=== PATIENT | male | born 1970 | race Caucasian/White ===

== ENCOUNTER → 2017-11-23 09:32 | Outpatient (CLI) | payer MEDICARE, OTHER, SELFPAY ==
[2017-11-23 10:34] LABS: Hemoglobin 12.9 g/dl (13.0-16.5); Mean Corp Hgb Conc 33.1 g/gl (32-36); Mean Corpuscular Hgb 30.4 pg (27.0-32.0); Platelet Count 108 K/mm3 (150-450); RBC Distribution Width CV 13.5 % (11.6-14.6); Red Blood Count 4.24 M/mm3 (4.6-6.2)
[2017-11-23 10:37] LABS: Scan Indicated on CBC? Y/N NO
[2017-11-23 11:05] LABS: Albumin, Serum 3.7 g/dL (3.2-5.0); BUN 25 mg/dL (7-18); BUN/Creat Ratio 13.8 RATIO (10-20); Calcium,Total 9.6 mg/dL (8.5-10.1); Chloride 101 mmol/L (98-107); Creatinine, Serum 1.81 mg/dL (0.70-1.30); EST Glomerular Filtration Rate 43 mL/min (>60); Est Glom Filt Rate - Afr Amer 52 mL/min (>60); Glucose 78 mg/dL (74-106); Phosphorus 2.3 mg/dL (2.5-4.9); Potassium 4.5 mmol/L (3.5-5.1); Sodium Level 132 mmol/L (136-145)
[2017-11-25 19:23] LABS: Cholesterol 112 mg/dL (200); High Density Lipoprotein 41 mg/dL; Magnesium 1.9 mg/dL (1.6-2.6); Triglycerides 55 mg/dL; Very Low Density Lipoprotein 11 mg/dL (5-40)
[2017-11-26 16:04] LABS: Tacrolimus (FK506) 10.4 ng/mL (2.0-20.0)
== END ==
PROVIDERS: Family Provider Physician Assistant; PCP Physician Assistant; Visit Provider Internal Medicine Nephrology
DX: Z94.0 Kidney transplant status (principal); D89.9 Disorder involving the immune mechanism, unspecified
CPT/HCPCS: 36415; 80061; 80069; 80197; 83735; 85027

== ENCOUNTER 2017-12-25 14:10 | Inpatient (IN) | payer MEDICARE, BC, SELFPAY ==
[2017-12-25] VITALS (12 sets, daily range): BP systolic 96–131; BP diastolic 47–68; PULSE 52–72; RESP 14–18; TEMP 36.6–36.9; O2SAT 95–100; BMI 23.3; BMI 23.8
--- NOTE | 2017-12-25 14:12 | EKG12_ITS ---
Test Reason : CP Blood Pressure : / mmHG Vent. Rate : 063 BPM Atrial Rate : 063 BPM P-R Int : 126 ms QRS Dur : 092 ms QT Int : 382 ms P-R-T Axes : 048 -46 -07 degrees QTc Int : 390 ms Normal sinus rhythm Left anterior fascicular block Left ventricular hypertrophy with repolarization abnormality Abnormal ECG Confirmed by KAITLIN BURT, LANCE ([id number]), social media editor JENARO ALVARADO ([id number]) on 12/27/2017 2:47:44 PM Referred By: AURE Confirmed By:LANCE MADRIGAL MD
--- NOTE | 2017-12-25 14:26 | ED.VISSUMM ---
- ER Visit Summary Date of Service: 12/25/17 Chief Complaint: Chest pain History of Present Illness: The patient is a 47 M known history of coronary disease with prior PR and quadruple bypass in 2006. Patient is also had renal transplants ?2. Hypertension and prior pulmonary emboli. He states that the last 2 weeks he has had intermittent chest heaviness. Often brought on by exertion. Mild dyspnea. No hemoptysis. It is not pleuritic in nature. Denies any calf pain. He is not recently been ill. He states he had a stress echo done in Dr. Logan's office approximately 4 months ago which was negative For valvular heart disease. Physical Examination: Well-appearing middle-age male. Vital signs are stable afebrile. He does not look septic or toxic. Pulse ox 97% on room air no signs of hypoxia. H EENT exam is unremarkable. Neck nontender no JVD. Lungs clear to auscultation bilaterally. Heart regular rate and rhythm no murmur. Abdomen soft nontender. Chest wall nontender. He is moving all 4 extremities. Calves are nontender without edema or cords. Neurologically is awake and alert without focal motor deficits. Test Results: Chest x-ray no acute process chronic changes. CBC shows a white count 8. H&H 11.9 and 35 which is consistent with his chronic E [place]. Platelet count of 108,000 again chronic. His chemistry panel is unremarkable and his creatinine 1.89 he has chronic renal insufficiency this is along his baseline. Troponin is elevated 0.21 Emergency Department Course and Treatment: Will undergo cardiac workup and will receive p.o. aspirin. Treatment Plan: I spoke with the patient's and he would prefer to stay here with her hospital to have his care versus being transferred to a larger facility. I discussed this and his chronic renal insufficiency with Dr. Moreira he states he is comfortable taking care of the patient will gladly care for him here at [facility]. I spoke to the hospitalist who will be down to admit him. Patient will be started on a nitroglycerin drip. Disposition: Admission Impression: Chest pain with elevated troponin History of PR, CAD with prior quadruple bypass. History of renal transplants ?2 and known renal insufficiency Chronic anemia History of COPD History of right lower extremity peripheral arterial disease This note was generated with [email or web address] software. It may contain incorrect words, spelling, and punctuation that were not noted in review of the chart prior to signing ED Disposition - Plan for ED Patient: Chief Complaint: Chest Pain Referrals: Diana Tate PA [Primary Care Provider] -
--- NOTE | 2017-12-25 14:27 | RAD_ITS ---
STUDY: X-RAY CHEST REASON FOR EXAM: Male, 47 years old. COPD. Prior CABG. TECHNIQUE: Single AP portable view of the chest. COMPARISON: Comparison is made with prior study dated May 23, 2013. FINDINGS: EKG electrodes are seen. Hyperinflation. Stable blunting of the left costophrenic angle. Mild degree of increased retrocardiac markings suggestive of possible early infiltrate. Follow-up is recommended. Sternal cerclage wires and vascular clips are present from a prior sternotomy and coronary artery bypass graft procedure (CABG). Normal mediastinum and vimal. Normal visualized pulmonary arteries. There is atherosclerotic calcification of the aortic arch with tortuosity. Normal visualized thoracic spine. Normal visualized ribs, clavicles, and shoulders. There is no demonstrated abnormality of the visualized soft tissue structures of the upper abdomen. RAD/Chest 1 View (Portable) IMPRESSION: Increased markings in the retrocardiac region. Early infiltrate should BE ruled out. Stable blunting of the left costophrenic angle. Electronically Signed: Gabe Nichols MD at 14:47 EDT Tel [phone], Service support ,
[2017-12-25] MEDS: Aspirin 81 MG TAB.CHEW 324 MG PO (14:46)
[2017-12-25 14:53] LABS: Absolute Lymphocyte Count 0.52 X10^3/ul (0.83-4.51); Absolute Neutrophil Count 6.9 X10^3/uL (2.0-7.7); Basophil# 0.01 X10^3/uL; Basophil% 0.1 % (0-1); Differential Indicated SCAN CRITERIA MET; Eosinophil# 0.02 X10^3/uL; Eosinophils% 0.3 % (0-5); Hematocrit 35.6 % (40-54); Hemoglobin 11.9 g/dl (13.0-16.5); Lymphocyte # 0.52 X10^3/ul (4.0); Lymphocyte % 6.5 % (19-41); Mean Corp Hgb Conc 33.4 g/gl (32-36); Mean Corpuscular Hgb 30.9 pg (27.0-32.0); Mean Corpuscular Volume 92.5 fL (80-94); Mean Platelet Vol. 10.4 fl (6.2-12.0); Monocyte# 0.46 X10^3/uL; Monocyte% 5.8 % (0-10); Neutrophil # 6.93 X10^3/uL (2.7-7.7); Neutrophil % 86.9 % (47-70); POSITIVE COUNT NO; POSITIVE DIFFERENTIAL YES; POSITIVE MORPHOLOGY NO; Platelet Count 108 K/mm3 (150-450); RBC Distribution Width CV 13.4 % (11.6-14.6); RBC Distribution Width SD 44.6 fl (35.1-43.9); Red Blood Count 3.85 M/mm3 (4.6-6.2)
[2017-12-25 15:05] LABS: Anion Gap 6 (5-15); BUN 26 mg/dL (7-18); BUN/Creat Ratio 13.8 RATIO (10-20); Calcium,Total 9.7 mg/dL (8.5-10.1); Chloride 104 mmol/L (98-107); Creatinine, Serum 1.89 mg/dL (0.70-1.30); EST Glomerular Filtration Rate 41 mL/min (>60); Est Glom Filt Rate - Afr Amer 49 mL/min (>60); Estimated Creatinine Clearance 41.58 ml/min; Glucose 98 mg/dL (74-106); Potassium 4.9 mmol/L (3.5-5.1); Sodium Level 136 mmol/L (136-145)
--- NOTE | 2017-12-25 15:50 | PCM.HP.STD ---
Problem List (1) Hypertension Status: Chronic (2) Coronary artery disease Status: Chronic (3) History of renal transplant Status: Chronic History of Present Illness Date of Admission: 12/25/17 The patient is a 47 year old M with past medical history of coronary artery disease status post CABG, essential hypertension and status post renal transplant with stage III chronic kidney disease and anemia of chronic disease who presented to the emergency room due to intermittent chest heaviness for the past 2 weeks,this is worse with exertion and associated with mild dyspnea. He reports no cough, fever chills hemoptysis rapid heartbeat or palpitations. he follows with Dr. Logan as his primary career technical education teacher and his net software developer is in [place]. In the Emergency room his troponin was elevated at 0.21, creatinine is 1.8 which is at his baseline, his hemoglobin is 11.9, chest x-ray is non-acute his 12-lead EKG does not reveal new ST deviations. Dr Moreira of cardiology was consulted on this patient from the emergency room and he will see him for possible heart catheterization. Past Medical History Past Medical History (Chronic Problems): Chronic Problems Hypertension (Chronic) Coronary artery disease (Chronic) History of renal transplant (Chronic) Allergies acetaminophen [From Darvocet-N] Allergy (Verified 05/12/16 08:44) Hives propoxyphene napsylate [From Darvocet-N] Allergy (Verified 05/12/16 08:44) Hives venom-honey bee [bee venom (honey bee)] Allergy (Verified 05/12/16 08:44) Hives Home Medications: Ambulatory Orders Medication Instructions Recorded Aspirin [Aspirin, Baby] 81 mg PO DAILY@0800 02/21/14 Doxazosin Mesylate [Cardura] 8 mg PO DAILY 02/21/14 Metoprolol Tartrate [Lopressor 75 mg PO BID 02/21/14 (beta hong)] Mycophenolate Mofetil [Cellcept] 250 mg PO BID 02/21/14 Omeprazole [Prilosec] 20 mg PO DAILY 02/21/14 Sulfamethoxazole/Trimethoprim 1 tablet PO DAILY 02/21/14 [Bactrim 400-80 mg Tablet] Tacrolimus Anhydrous [Prograf] 0.5 mg PO BID 02/21/14 predniSONE tablet 7.5 mg PO DAILY 02/21/14 Magnesium Oxide [Mgo] 400 mg PO BID 12/25/17 Umeclidinium Brm/Vilanterol Tr 1 puff INHALATION QHS 12/25/17 [Anoro Ellipta 62.5-25 Mcg INH] Surgical History: coronary bypass surgery, - - Renal transplantation, bladder surgery, pericardial window secondary to renal failure Psychiatric History: No pertinent psych hx Smoking Status: Former smoker Review of Systems Constitutional: Reports: Anorexia Comment: All Systems were reviewed with pertinent positives mentioned in the HPI above. VTE Information - Inpt Only VTE Present on Admission: No VTE Mechan Device Prophylaxis: SCD's VTE Pharm Prophylaxis ordered?: No Reason prophylaxis not ordered:: Adverse Reaction to Drug - Physical Exam General: Alert, Oriented x3 HEENT: Atraumatic Neck: Supple, No JVD Lungs: Clear to auscultation Extremities: No clubbing Neurological: Cranial nerves II-XII grossly intact Vital Signs Temp Pulse Resp BP Pulse Ox 98.2 F 72 16 98/54 L 97 12/25/17 14:11 12/25/17 15:43 12/25/17 15:43 12/25/17 15:43 12/25/17 15:43 Oxygen Flow Rate (L/min) 2 Oxygen Delivery Method Nasal Cannula Weight: 63.503 kg Body Mass Index (BMI) 23.3 Laboratory Tests Past 24 Hrs 12/25/17 12/25/17 14:36 14:36 WBC 8.0 RBC 3.85 L Hgb 11.9 L Hct 35.6 L MCV 92.5 MCH 30.9 MCHC 33.4 RDW 13.4 RDW Differential 44.6 H Plt Count 108 L MPV 10.4 Immature Gran % (Auto) 0.400 Neut % (Auto) 86.9 H Lymph % (Auto) 6.5 L [place] % (Auto) 5.8 Eos % (Auto) 0.3 Baso % (Auto) 0.1 Absolute Neuts (auto) 6.9 Absolute Lymphs (auto) 0.52 L Total Counted Not Reportable Differential Comment COMMENT Sodium 136 Potassium 4.9 Chloride 104 Carbon Dioxide 26.0 Anion Gap 6 BUN 26 H Creatinine 1.89 H Estim Creat Clear Calc 41.58 Est GFR (MDRD) Af Amer 49 L Est GFR (MDRD) Non-Af 41 L BUN/Creatinine Ratio 13.8 Glucose 98 Calcium 9.7 Troponin I 0.21 H Assessment/Plan 1. Chest pain; given his history of significant coronary artery disease, this most likely represents unstable angina, he has been placed on nitro drip and we will continue serial cardiac enzymes , Dr. Moreira of cardiology have been consulted for further ischemic workup. 2. Status post renal transplant ;we will continue his antirejection medications as they are without change. 3. stage 3 chronic kidney disease; the patient wants to see a net software developer should heart catheterization be recommended. We will avoid potential nephrotoxic agents as possible. 4. Essential hypertension; this is controlled with current antihypertensive agents. 5. Anemia of chronic disease; hemoglobin is stable at this time. 6. Thrombocytopenia; we will repeat CBC in a.m. 7. DVT Prophylaxis with SCDs. Code Visit OBSV E&M: 00139 Initial observation care L3
--- NOTE | 2017-12-25 16:04 | HP.PCM_ITS ---
Problem List (1) Hypertension Status: Chronic (2) Coronary artery disease Status: Chronic (3) History of renal transplant Status: Chronic History of Present Illness Date of Admission: 12/25/17 The patient is a 47 year old M with past medical history of coronary artery disease status post CABG, essential hypertension and status post renal transplant with stage III chronic kidney disease and anemia of chronic disease who presented to the emergency room due to intermittent chest heaviness for the past 2 weeks,this is worse with exertion and associated with mild dyspnea. He reports no cough, fever chills hemoptysis rapid heartbeat or palpitations. he follows with Dr. 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 In the Emergency room his troponin was elevated at 0.21, creatinine is 1.8 which is at his baseline, his hemoglobin is 11.9, chest x-ray is non-acute his 12-lead EKG does not reveal new ST deviations. Dr Moreira of cardiology was consulted on this patient from the emergency room and he will see him for possible heart catheterization. Past Medical History Past Medical History (Chronic Problems): Chronic Problems Hypertension (Chronic) Coronary artery disease (Chronic) History of renal transplant (Chronic) Allergies acetaminophen [From Darvocet-N] Allergy (Verified 05/12/16 08:44) Hives propoxyphene napsylate [From Darvocet-N] Allergy (Verified 05/12/16 08:44) Hives venom-honey bee [bee venom (honey bee)] Allergy (Verified 05/12/16 08:44) Hives Home Medications: Ambulatory Orders Medication Instructions Recorded Aspirin [Aspirin, Baby] 81 mg PO DAILY@0800 02/21/14 Doxazosin Mesylate [Cardura] 8 mg PO DAILY 02/21/14 Metoprolol Tartrate [Lopressor 75 mg PO BID 02/21/14 (beta hong)] Mycophenolate Mofetil [Cellcept] 250 mg PO BID 02/21/14 Omeprazole [Prilosec] 20 mg PO DAILY 02/21/14 Sulfamethoxazole/Trimethoprim 1 tablet PO DAILY 02/21/14 [Bactrim 400-80 mg Tablet] Tacrolimus Anhydrous [Prograf] 0.5 mg PO BID 02/21/14 predniSONE tablet 7.5 mg PO DAILY 02/21/14 Magnesium Oxide [Mgo] 400 mg PO BID 12/25/17 Umeclidinium Brm/Vilanterol Tr 1 puff INHALATION QHS 12/25/17 [Anoro Ellipta 62.5-25 Mcg INH] Surgical History: coronary bypass surgery, - - Renal transplantation, bladder surgery, pericardial window secondary to renal failure Psychiatric History: No pertinent psych hx Smoking Status: Former smoker Review of Systems Constitutional: Reports: Anorexia Comment: All Systems were reviewed with pertinent positives mentioned in the HPI above. VTE Information - Inpt Only VTE Present on Admission: No VTE Mechan Device Prophylaxis: SCD's VTE Pharm Prophylaxis ordered?: No Reason prophylaxis not ordered:: Adverse Reaction to Drug - Physical Exam General: Alert, Oriented x3 HEENT: Atraumatic Neck: Supple, No JVD Lungs: Clear to auscultation Extremities: No clubbing Neurological: Cranial nerves II-XII grossly intact Vital Signs Temp Pulse Resp BP Pulse Ox 98.2 F 72 16 98/54 L 97 12/25/17 14:11 12/25/17 15:43 12/25/17 15:43 12/25/17 15:43 12/25/17 15:43 Oxygen Flow Rate (L/min) 2 Oxygen Delivery Method Nasal Cannula Weight: 63.503 kg Body Mass Index (BMI) 23.3 Laboratory Tests Past 24 Hrs 12/25/17 12/25/17 14:36 14:36 WBC 8.0 RBC 3.85 L Hgb 11.9 L Hct 35.6 L MCV 92.5 MCH 30.9 MCHC 33.4 RDW 13.4 RDW Differential 44.6 H Plt Count 108 L MPV 10.4 Immature Gran % (Auto) 0.400 Neut % (Auto) 86.9 H Lymph % (Auto) 6.5 L [place] % (Auto) 5.8 Eos % (Auto) 0.3 Baso % (Auto) 0.1 Absolute Neuts (auto) 6.9 Absolute Lymphs (auto) 0.52 L Total Counted Not Reportable Differential Comment COMMENT Sodium 136 Potassium 4.9 Chloride 104 Carbon Dioxide 26.0 Anion Gap 6 BUN 26 H Creatinine 1.89 H Estim Creat Clear Calc 41.58 Est GFR (MDRD) Af Amer 49 L Est GFR (MDRD) Non-Af 41 L BUN/Creatinine Ratio 13.8 Glucose 98 Calcium 9.7 Troponin I 0.21 H Assessment/Plan 1. Chest pain; given his history of significant coronary artery disease, this most likely represents unstable angina, he has been placed on nitro drip and we will continue serial cardiac enzymes , Dr. Moreira of cardiology have been consulted for further ischemic workup. 2. Status post renal transplant ;we will continue his antirejection medications as they are without change. 3. stage 3 chronic kidney disease; the patient wants to see a box office clerk should heart catheterization be recommended. We will avoid potential nephrotoxic agents as possible. 4. Essential hypertension; this is controlled with current antihypertensive agents. 5. Anemia of chronic disease; hemoglobin is stable at this time. 6. Thrombocytopenia; we will repeat CBC in a.m. 7. DVT Prophylaxis with SCDs. Code Visit OBSV E&M: 08900 Initial observation care L3
[2017-12-25 16:33] LABS: D-Dimer Quantitative (DVT/PE) < 0.27 FEU/ug/m (0.27-0.49)
[2017-12-25] MEDS: ALPRAZolam 0.25 MG Tablet PO (18:14)
[2017-12-25] MEDS: 0.9% Normal Saline 1,000 ML 50 ML IV (18:41)
--- NOTE | 2017-12-25 20:08 | EKG12_ITS ---
Test Reason : CP Blood Pressure : / mmHG Vent. Rate : 068 BPM Atrial Rate : 068 BPM P-R Int : 126 ms QRS Dur : 092 ms QT Int : 392 ms P-R-T Axes : 052 -49 -06 degrees QTc Int : 416 ms Normal sinus rhythm Left anterior fascicular block Nonspecific ST abnormality Abnormal ECG When compared with ECG of 25-DEC-2017 14:14, MANUAL COMPARISON REQUIRED, DATA IS UNCONFIRMED Confirmed by KAITLIN BURT, LANCE ([id number]), supervising editor trailer JENARO ALVARADO ([id number]) on 12/27/2017 3:03:21 PM Referred By: SHAUN Confirmed By:LANCE MADRIGAL MD
[2017-12-25] MEDS: Morphine 2 MG/ML Syringe 1 MG IV ×2 (21:15→22:48)
[2017-12-25] MEDS: Magnesium Oxide 400 MG Tablet PO (22:26)
[2017-12-25] MEDS: Mycophenolate Mofetil 250 MG Capsule PO (22:26)
[2017-12-26] VITALS (12 sets, daily range): BP systolic 96–139; BP diastolic 37–58; PULSE 47–65; RESP 14–16; TEMP 35.8–36.5; O2SAT 96–99
[2017-12-26 05:11] LABS: Hematocrit 36.8 % (40-54); Hemoglobin 11.9 g/dl (13.0-16.5); Mean Corp Hgb Conc 32.3 g/gl (32-36); Mean Corpuscular Hgb 30.2 pg (27.0-32.0); Mean Corpuscular Volume 93.4 fL (80-94); Mean Platelet Vol. 10.2 fl (6.2-12.0); Platelet Count 101 K/mm3 (150-450); RBC Distribution Width CV 13.7 % (11.6-14.6); RBC Distribution Width SD 47.1 fl (35.1-43.9); Red Blood Count 3.94 M/mm3 (4.6-6.2); White Blood Count 5.8 K/mm3 (4.4-11.0)
[2017-12-26 05:12] LABS: Scan Indicated on CBC? Y/N NO
[2017-12-26] MEDS: Morphine 2 MG/ML Syringe 1 MG IV ×2 (05:19→10:41)
[2017-12-26 05:33] LABS: Anion Gap 6 (5-15); BUN 24 mg/dL (7-18); BUN/Creat Ratio 13.4 RATIO (10-20); Calcium,Total 9.1 mg/dL (8.5-10.1); Chloride 106 mmol/L (98-107); Cholesterol 85 mg/dL (200); Creatinine, Serum 1.79 mg/dL (0.70-1.30); EST Glomerular Filtration Rate 43 mL/min (>60); Est Glom Filt Rate - Afr Amer 52 mL/min (>60); Glucose 91 mg/dL (74-106); High Density Lipoprotein 42 mg/dL; Potassium 4.9 mmol/L (3.5-5.1); Sodium Level 137 mmol/L (136-145); Triglycerides 51 mg/dL; Very Low Density Lipoprotein 10 mg/dL (5-40)
[2017-12-26] MEDS: Ipratropium/Albuterol Sulfate 3 ML AMPUL.NEB INHALATION (07:32)
--- NOTE | 2017-12-26 08:19 | ECHOCS_ITS ---
Reason For Study: CAD Procedure This was a 2D Doppler, Color Flow transthoracic echocardiogram. Exam performed portable in patient room. Left Ventricle Normal size and thickness. The estimated ejection fraction is 60 %. Normal diastology for age. No regional wall motion abnormalities noted. Right Ventricle Normal size and thickness. Normal systolic function. Atria The left atrium is moderately enlarged. Normal right atrium. Normal atrial septum. Mitral Valve The mitral valve is structurally normal. No prolapse or stenosis seen. Mild (1+) mitral valve insufficiency. Tricuspid Valve Normal tricuspid valve. Mild (1+) tricuspid valve insufficiency. Right ventricular systolic pressure estimated to be 41 mmHg. Mild pulmonary hypertension. Aortic Valve Trisinus/trileaflet aortic valve. Mild focal aortic valve thickening. There is no aortic stenosis. Mild (1+) aortic valve insufficiency. Pulmonic Valve Normal pulmonic valve. Mild (1+) pulmonic valve insufficiency. Great Vessels Normal aortic root. Normal arch. Normal inferior vena cava. Inferior vena cava collapse with sniff. Pericardium/Pleural No pericardial effusion. MMode/2D Measurements & Calculations LVIDd: 5.4 cm IVSd: 1.1 cm Ao root diam: 3.1 cm LVIDs: 3.9 cm LVPWd: 1.1 cm LA dimension: 4.3 cm RVDd: 3.6 cm FS: 27.8 % LAV(MOD-bp): 77.7 ml LA A4 area: 25.4 cm2 RA A4 area: 14.5 cm2 LAV(MOD-bp) Indexed: 45.5 ml/m2 LAV(MOD-sp2): 67.1 ml LAV(MOD-sp4): 85.8 ml Doppler Measurements & Calculations MV E max giovanni: 138.1 cm/sec MV V2 max: 154.1 cm/sec Ao V2 max: 198.0 cm/sec MV A max giovanni: 96.6 cm/sec MV max P.5 mmHg Ao max P.7 mmHg MV E/A: 1.4 MV V2 mean: 62.3 cm/sec MV mean P.2 mmHg MV V2 VTI: 48.5 cm AI max giovanni: 492.2 cm/sec LV V1 max: 121.5 cm/sec PA V2 max: 113.2 cm/sec AI max P.0 mmHg LV V1 max P.9 mmHg AI dec slope: 202.9 cm/sec2 AI P1/2t: 710.3 msec PI end-d giovanni: 121.1 cm/sec TR max giovanni: 300.5 cm/sec TR max P.1 mmHg Interpretation Summary The estimated ejection fraction is 60 %. Normal diastology for age. The left atrium is moderately enlarged. Mild (1+) mitral valve insufficiency. Mild (1+) tricuspid valve insufficiency. Right ventricular systolic pressure estimated to be 41 mmHg. Mild pulmonary hypertension. Mild (1+) aortic valve insufficiency. There is no comparison study available. Ordering Physician: Abraham Moreira Referring Physician: John Khan Performed By: Morena Mae, VERONIKA, RVT
[2017-12-26] MEDS: Aspirin E.C. 81 MG Tablet PO (09:31)
[2017-12-26] MEDS: Pantoprazole Sodium 20 MG Tablet PO (09:31)
[2017-12-26] MEDS: predniSONE 5 MG Tablet 7.5 MG PO (09:31)
[2017-12-26] MEDS: Smz/Tmp Ds Tablet 0.5 TABLET PO (09:31)
[2017-12-26] MEDS: Magnesium Oxide 400 MG Tablet PO ×2 (09:32→22:10)
[2017-12-26] MEDS: Mycophenolate Mofetil 250 MG Capsule PO ×2 (09:33→22:10)
--- NOTE | 2017-12-26 10:17 | PCM.CONS.R ---
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 last renal txp was DULR 8 years ago, CKD stage 3. Patient follows with Dr. Khan at [place]. Patient is on cellcept 250 BID, prograf 0.5 BID and prednisone 7.5 mg PO daily. Patient presented on 12/25 for chest pain along with mild dyspnea. Patient was started on Nitroglycerin drip with improvement in CP. Cardiology was consulted. Patient denied any NSAIDs use. No recent IV contrast exposure.No recent UTI ROS: 12 systems review is negative except for chest pain (pressure like) [] - Allergies Allergies: Allergies acetaminophen [From Darvocet-N] Allergy (Verified 05/12/16 08:44) Hives propoxyphene napsylate [From Darvocet-N] Allergy (Verified 05/12/16 08:44) Hives venom-honey bee [bee venom (honey bee)] Allergy (Verified 05/12/16 08:44) Hives - Current Medications Current Medications: Current Medications Albuterol/Ipratropium (Duoneb) 3 ml INHALATION Q6HWA.RT [facility] Last Admin: 12/26/17 07:32 Dose: 3 ml Alprazolam (Xanax) 0.25 mg PO BID PRN PRN PRN Reason: ANXIETY Last Admin: 12/25/17 18:14 Dose: 0.25 mg Aspirin (Ecotrin) 81 mg PO DAILY@0800 MARY ELLEN Last Admin: 12/26/17 09:31 Dose: 81 mg Clopidogrel Bisulfate (Plavix) 300 mg PO X1 ONE Stop: 12/26/17 10:14 Doxazosin Mesylate (Cardura) 8 mg PO DAILY [facility] Sodium Chloride () 1,000 mls @ 75 mls/hr IV .[id number] [facility] Magnesium Oxide (Mag-Ox 400) 400 mg PO BID [facility] Last Admin: 12/26/17 09:32 Dose: 400 mg Metoprolol Tartrate (Lopressor (Beta Anne)) 50 mg PO BID [facility] Morphine Sulfate () 1 mg IV Q1H PRN PRN PRN Reason: SEVERE PAIN (6-10/10) Last Admin: 12/26/17 05:19 Dose: 1 mg Mycophenolate Mofetil (Cellcept) 250 mg PO BID [facility] Last Admin: 12/26/17 09:33 Dose: 250 mg Nitroglycerin (Nitrostat) 0.4 mg SUBLINGUAL Q5M PRN PRN Reason: CHEST PAIN Pantoprazole Sodium (Protonix) 20 mg PO DAILY [facility] Last Admin: 12/26/17 09:31 Dose: 20 mg [facility] Last Admin: 12/26/17 09:31 Dose: 7.5 mg Sodium Chloride () 5 - 30 ml IV UD PRN PRN Reason: SALINE FLUSH Tacrolimus (Prograf) 0.5 mg PO BID [facility] Last Admin: 12/26/17 09:33 Dose: 0.5 mg Tramadol HCl (Ultram (G)) 50 mg PO Q6H PRN PRN PRN Reason: MODERATE PAIN (4-5/10) Trimethoprim/Sulfamethoxazole (Bactrim Ds) [facility] Last Admin: 12/26/17 09:31 Dose: 0.5 tablet - Past Medical History Past Medical History (Chronic Problems): Chronic Problems Hypertension (Chronic) Coronary artery disease (Chronic) History of renal transplant (Chronic) - Past Surgical History Surgical History: coronary bypass surgery, - - Renal transplantation, bladder surgery, pericardial window secondary to renal failure - Social History Smoking Status: Former smoker Patient Problems: Active and Suspected Problems Chronic kidney disease, stage 3 (Acute) Renal transplant recipient (Acute) Immunosuppressed status (Acute) - Physical Exam General: Alert, Oriented x3 HEENT: Atraumatic Oral: Moist Mucosa Neck: Supple, No JVD Lungs: Clear to auscultation, Normal air movement, No rhonchi, No wheeze, No rales Cardiovascular: Regular rate, Regular Rhythm, Normal S1, Normal S2, No murmurs Abdomen: Bowel Sounds Present, Soft, Non Tender, Non-Distended Extremities: No clubbing, No cyanosis Skin: No rashes Musculoskeletal: No Tenderness to Palpation of Joints or Extremities Lymphatic: No Cervical, Supraclavicular, or Inguinal Adenopathy Neurological: Cranial nerves II-XII grossly intact, Neuro grossly intact Psych/Mental Status: Normal Affect Vital Signs Temp Pulse Resp BP Pulse Ox 97.7 F L 54 L 16 139/45 H 96 12/26/17 09:36 12/26/17 09:36 12/26/17 09:36 12/26/17 09:36 12/26/17 09:36 Oxygen Delivery Method Room Air Weight: 64.818 kg Body Mass Index (BMI) 23.8 Intake and Output for Last 24 Hours 12/24/17 12/25/17 12/26/17 23:59 23:59 23:59 Intake Total 645 / 645 406 / 406 Balance 645 / 645 406 / 406 Laboratory Tests Past 24 Hrs 12/25/17 12/25/17 12/26/17 18:23 22:35 05:02 WBC RBC Hgb Hct MCV MCH MCHC RDW RDW Differential Plt Count MPV Sodium 137 Potassium 4.9 Chloride 106 Carbon Dioxide 25.0 Anion Gap 6 BUN 24 H Creatinine 1.79 H Estim Creat Clear Calc 43.90 Est GFR (MDRD) Af Amer 52 L Est GFR (MDRD) Non-Af 43 L BUN/Creatinine Ratio 13.4 Glucose 91 Calcium 9.1 Troponin I 0.29 H 0.29 H 0.26 H Triglycerides 51 Cholesterol 85 LDL Cholesterol 33 VLDL Cholesterol 10 HDL Cholesterol 42 12/26/17 05:02 WBC 5.8 RBC 3.94 L Hgb 11.9 L Hct 36.8 L MCV 93.4 MCH 30.2 MCHC 32.3 RDW 13.7 RDW Differential 47.1 H Plt Count 101 L MPV 10.2 Sodium Potassium Chloride Carbon Dioxide Anion Gap BUN Creatinine Estim Creat Clear Calc Est GFR (MDRD) Af Amer Est GFR (MDRD) Non-Af BUN/Creatinine Ratio Glucose Calcium Troponin I Triglycerides Cholesterol LDL Cholesterol VLDL Cholesterol HDL Cholesterol Assessment/Plan Active and Suspected Problems Chronic kidney disease, stage 3 (Acute) Renal transplant recipient (Acute) Immunosuppressed status (Acute) 1- CKD stage 3. 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 Cr is at baseline. Baseline Cr 1.5-2.0 mg/dL. Today Cr is 1.7 mg/dl Patient is at high risk for contrast induced nephropathy. I recommend to start the patient on Ns 75 cc/hour for 6 hours before and 6 hours after the cardiac cath 2- ESRD s/p 2 renal transplant. last renal transplant was DULR IS: On cellcept 250 BID, prograf 0.5 BID and prednisone 7.5 mg PO daily Prophylaxis : continue bactrim the same dose 3- Chest pain: management is as per the cardiology team Will continue to follow Thank you for the consult Mary Jo Kolb MD [phone]
--- NOTE | 2017-12-26 10:28 | CON.PCM_ITS ---
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 last renal txp was DULR 8 years ago, CKD stage 3. Patient follows with Dr. Khan at [facility]. Patient is on cellcept 250 BID, prograf 0.5 BID and prednisone 7.5 mg PO daily. Patient presented on 12/25 for chest pain along with mild dyspnea. Patient was started on Nitroglycerin drip with improvement in CP. Cardiology was consulted. Patient denied any NSAIDs use. No recent IV contrast exposure.No recent UTI ROS: 12 systems review is negative except for chest pain (pressure like) [] - Allergies Allergies: Allergies acetaminophen [From Darvocet-N] Allergy (Verified 05/12/16 08:44) Hives propoxyphene napsylate [From Darvocet-N] Allergy (Verified 05/12/16 08:44) Hives venom-honey bee [bee venom (honey bee)] Allergy (Verified 05/12/16 08:44) Hives - Current Medications Current Medications: Current Medications Albuterol/Ipratropium (Duoneb) 3 ml INHALATION Q6HWA.RT [facility] Last Admin: 12/26/17 07:32 Dose: 3 ml Alprazolam (Xanax) 0.25 mg PO BID PRN PRN PRN Reason: ANXIETY Last Admin: 12/25/17 18:14 Dose: 0.25 mg Aspirin (Ecotrin) 81 mg PO DAILY@0800 MARY ELLEN Last Admin: 12/26/17 09:31 Dose: 81 mg Clopidogrel Bisulfate (Plavix) 300 mg PO X1 ONE Stop: 12/26/17 10:14 Doxazosin Mesylate (Cardura) 8 mg PO DAILY [facility] Sodium Chloride () 1,000 mls @ 75 mls/hr IV .[id number] [facility] Magnesium Oxide (Mag-Ox 400) 400 mg PO BID [facility] Last Admin: 12/26/17 09:32 Dose: 400 mg Metoprolol Tartrate (Lopressor (Beta Anne)) 50 mg PO BID [facility] Morphine Sulfate () 1 mg IV Q1H PRN PRN PRN Reason: SEVERE PAIN (6-10/10) Last Admin: 12/26/17 05:19 Dose: 1 mg Mycophenolate Mofetil (Cellcept) 250 mg PO BID [facility] Last Admin: 12/26/17 09:33 Dose: 250 mg Nitroglycerin (Nitrostat) 0.4 mg SUBLINGUAL Q5M PRN PRN Reason: CHEST PAIN Pantoprazole Sodium (Protonix) 20 mg PO DAILY [facility] Last Admin: 12/26/17 09:31 Dose: 20 mg [facility] Admin: 12/26/17 09:31 Dose: 7.5 mg Sodium Chloride () 5 - 30 ml IV UD PRN PRN Reason: SALINE FLUSH Tacrolimus (Prograf) 0.5 mg PO BID [facility] Last Admin: 12/26/17 09:33 Dose: 0.5 mg Tramadol HCl (Ultram (G)) 50 mg PO Q6H PRN PRN PRN Reason: MODERATE PAIN (4-5/10) Trimethoprim/Sulfamethoxazole (Bactrim Ds) [facility] Last Admin: 12/26/17 09:31 Dose: 0.5 tablet - Past Medical History Past Medical History (Chronic Problems): Chronic Problems Hypertension (Chronic) Coronary artery disease (Chronic) History of renal transplant (Chronic) - Past Surgical History Surgical History: coronary bypass surgery, - - Renal transplantation, bladder surgery, pericardial window secondary to renal failure - Social History Smoking Status: Former smoker Patient Problems: Active and Suspected Problems Chronic kidney disease, stage 3 (Acute) Renal transplant recipient (Acute) Immunosuppressed status (Acute) - Physical Exam General: Alert, Oriented x3 HEENT: Atraumatic Oral: Moist Mucosa Neck: Supple, No JVD Lungs: Clear to auscultation, Normal air movement, No rhonchi, No wheeze, No rales Cardiovascular: Regular rate, Regular Rhythm, Normal S1, Normal S2, No murmurs Abdomen: Bowel Sounds Present, Soft, Non Tender, Non-Distended Extremities: No clubbing, No cyanosis Skin: No rashes Musculoskeletal: No Tenderness to Palpation of Joints or Extremities Lymphatic: No Cervical, Supraclavicular, or Inguinal Adenopathy Neurological: Cranial nerves II-XII grossly intact, Neuro grossly intact Psych/Mental Status: Normal Affect Vital Signs Temp Pulse Resp BP Pulse Ox 97.7 F L 54 L 16 139/45 H 96 12/26/17 09:36 12/26/17 09:36 12/26/17 09:36 12/26/17 09:36 12/26/17 09:36 Oxygen Delivery Method Room Air Weight: 64.818 kg Body Mass Index (BMI) 23.8 Intake and Output for Last 24 Hours 12/24/17 12/25/17 12/26/17 23:59 23:59 23:59 Intake Total 645 / 645 406 / 406 Balance 645 / 645 406 / 406 Laboratory Tests Past 24 Hrs 12/25/17 12/25/17 12/26/17 18:23 22:35 05:02 WBC RBC Hgb Hct MCV MCH MCHC RDW RDW Differential Plt Count MPV Sodium 137 Potassium 4.9 Chloride 106 Carbon Dioxide 25.0 Anion Gap 6 BUN 24 H Creatinine 1.79 H Estim Creat Clear Calc 43.90 Est GFR (MDRD) Af Amer 52 L Est GFR (MDRD) Non-Af 43 L BUN/Creatinine Ratio 13.4 Glucose 91 Calcium 9.1 Troponin I 0.29 H 0.29 H 0.26 H Triglycerides 51 Cholesterol 85 LDL Cholesterol 33 VLDL Cholesterol 10 HDL Cholesterol 42 12/26/17 05:02 WBC 5.8 RBC 3.94 L Hgb 11.9 L Hct 36.8 L MCV 93.4 MCH 30.2 MCHC 32.3 RDW 13.7 RDW Differential 47.1 H Plt Count 101 L MPV 10.2 Sodium Potassium Chloride Carbon Dioxide Anion Gap BUN Creatinine Estim Creat Clear Calc Est GFR (MDRD) Af Amer Est GFR (MDRD) Non-Af BUN/Creatinine Ratio Glucose Calcium Troponin I Triglycerides Cholesterol LDL Cholesterol VLDL Cholesterol HDL Cholesterol Assessment/Plan Active and Suspected Problems Chronic kidney disease, stage 3 (Acute) Renal transplant recipient (Acute) Immunosuppressed status (Acute) 1- CKD stage 3. 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 Cr is at baseline. Baseline Cr 1.5-2.0 mg/dL. Today Cr is 1.7 mg/dl Patient is at high risk for contrast induced nephropathy. I recommend to start the patient on Ns 75 cc/hour for 6 hours before and 6 hours after the cardiac cath 2- ESRD s/p 2 renal transplant. last renal transplant was DULR IS: On cellcept 250 BID, prograf 0.5 BID and prednisone 7.5 mg PO daily Prophylaxis : continue bactrim the same dose 3- Chest pain: management is as per the cardiology team Will continue to follow Thank you for the consult Mary Jo Kolb MD [phone]
--- NOTE | 2017-12-26 10:35 | PCM.CONS.C ---
Problem List (1) History of heart bypass surgery Status: Acute (2) Aortic insufficiency Status: Acute (3) Hypercholesterolemia Status: Acute (4) Hypertension Status: Chronic (5) Troponin I above reference range Status: Acute (6) Abnormal EKG Status: Acute (7) Coronary artery disease Status: Chronic Reason for Consult Date of Consultation: 12/26/17 Reason for Consultation: Unstable angina, abnormal troponin, abnormal EKG, coronary artery disease status post bypass surgery, aortic insufficiency, hypertension, hypercholesterolemia History of Present Illness: The patient is a 47 year old M with a complex past medical history, nondiabetic, former smoker of about 1.5 packs per day for about 14 years and quit about 8 years ago, former heavy drinker drinking anywhere between a 12 pack of beer plus a bottle of liquor every day for about 4 years time, decreased this and around year 1999. Patient has had kidney issues ever since he was 3 years old requiring nephrostomy tubes, eventually leading to complete renal failure. Patient was placed on dialysis and underwent renal transplant in 1993 and [facility] which lasted until around 2000 at which time it was explanted due to rejection. He then was on dialysis for around 10 years and underwent repeat renal transplant at [facility] in 2009, this time being placed on the left side. In 2005 the patient was found to have an abnormal EKG, which progressed to a urgent left heart catheterization demonstrated multivessel coronary disease. Patient underwent urgent four-vessel bypass surgery in 2005 in [place]. While the patient was on dialysis in 2007 he developed hyperkalemia and EKG changes and ventricular arrhythmias requiring urgent relook left heart catheterization [facility]. According to the patient his grafts were patent at that time. For some reason the patient was on Lipitor up until around 2007, at which time his insurance apparently stopped paying for his Lipitor. The patient has been off Lipitor for the better part of 10 years. His lipid profile however has remained relatively okay with an LDL of 60 and an HDL of 41 by last check. He also has a known history of aortic insufficiency and underwent echocardiogram in September 2017 which demonstrated relatively intact LV function with an EF around 55%, and mild aortic insufficiency. The patient is followed up with Dr. 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 We do not have the results of that test however he did not require repeat catheterization. In addition the patient appears to have evidence of claudication symptoms in his leg and has been told that he has possible peripheral vascular disease. He was awaiting carbon dioxide imaging of his lower extremities in the near future. 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 His symptoms also appear to be pleuritic in nature worsening with respiration. His symptoms resolved on their own,, where he continues to drive to [place], but on his way back he had recurrent substernal chest pressure seeking medical attention at [facility]. In the emergency room an EKG was performed which demonstrated normal sinus rhythm, subtle lateral ST segment depression and T-wave inversion, and a troponin of 0.21, and a creatinine of 1.89. Patient was treated with sublingual nitroglycerin, and his symptoms completely resolved. His troponins have remained flat. Patient was given IV fluid hydration overnight and his creatinine has improved to 1.79. Telemetry overnight has been negative. EKG this morning shows normal sinus rhythm with subtle lateral ST segment depression and T-wave inversion. No further chest pain. D-dimer is negative. Echocardiogram was done this morning, and pulmonary results show intact LV function and possibly mild pulmonary hypertension. Final result pending. Renal consultation obtained recommended IV fluid hydration pre-and post catheterization. Patient is extremely concerned about his renal transplant, and wants to make sure that he does not require IV contrast dye unless it is fully necessary. [] Past Medical History Allergies/Adverse Reactions: Allergies acetaminophen [From Darvocet-N] Allergy (Verified 05/12/16 08:44) Hives propoxyphene napsylate [From Darvocet-N] Allergy (Verified 05/12/16 08:44) Hives venom-honey bee [bee venom (honey bee)] Allergy (Verified 05/12/16 08:44) Hives Home Medications: Ambulatory Orders Medication Instructions Recorded Aspirin [Aspirin, Baby] 81 mg PO DAILY@0800 02/21/14 Doxazosin Mesylate [Cardura] 8 mg PO DAILY 02/21/14 Metoprolol Tartrate [Lopressor 75 mg PO BID 02/21/14 (beta hong)] Mycophenolate Mofetil [Cellcept] 250 mg PO BID 02/21/14 Omeprazole [Prilosec] 20 mg PO DAILY 02/21/14 Sulfamethoxazole/Trimethoprim 1 tablet PO DAILY 02/21/14 [Bactrim 400-80 mg Tablet] Tacrolimus Anhydrous [Prograf] 0.5 mg PO BID 02/21/14 predniSONE tablet 7.5 mg PO DAILY 02/21/14 Magnesium Oxide [Mgo] 400 mg PO BID 12/25/17 Umeclidinium Brm/Vilanterol Tr 1 puff INHALATION QHS 12/25/17 [Anoro Ellipta 62.5-25 Mcg INH] Past Medical History (Chronic Problems): Chronic Problems Hypertension (Chronic) Hypertension (Chronic) Coronary artery disease (Chronic) History of renal transplant (Chronic) Surgical History: coronary bypass surgery, - - Renal transplantation, bladder surgery, pericardial window secondary to renal failure Smoking Status: Former smoker Review of Systems - Review of Systems General: Denies: Fever, Night Sweats, Fatigue Cardiovascular: Reports: Chest Discomfort, Chest Discomfort with Exertion, Shortness of Breath, Shortness of Breath with Exertion. Denies: Orthopnea, PND, Peripheral Edema, Palpitations, Lightheadedness, Dizziness, Near Syncope, Syncope Respiratory: Denies: Cough, Sputum Production, Hemoptysis Gastrointestinal: Denies: Hematemesis, Hematochezia, Melena Genitourinary: Denies: Dysuria, Hematuria Skin: Denies: Rash Subjectve: Patient laying in bed, no acute distress. Objective: Vital Signs Temp Pulse Resp BP Pulse Ox 97.7 F L 54 L 16 139/45 H 96 12/26/17 09:36 12/26/17 09:36 12/26/17 09:36 12/26/17 09:36 12/26/17 09:36 Oxygen Delivery Method Room Air Weight: 142 lb 14.4 oz Body Mass Index (BMI) 23.8 Intake and Output for Last 24 Hours 12/24/17 12/25/17 12/26/17 23:59 23:59 23:59 Intake Total 645 / 645 406 / 406 Balance 645 / 645 406 / 406 General: Awake, Alert, Oriented x 3 HEENT: PERRL, EOMI, Sclera Non Icteric Neck: Supple, Good ROM, No Lymph Node Enlargement Lungs: Clear to auscultation Cardiovascular: Regular Rhythm, Normal S1, Normal S2, No Rubs, No Gallops Murmur Murmur: Grade 2/6, Holosystolic, Early Diastolic Vascular: No Carotid Bruits, Normal Femoral Pulses, Normal Radial Pulses, Normal Dorsalis Pedal Pulse, Normal Posterior Tibial Pulses Abdomen: Bowel Sounds Present, Soft, Non Tender, No HSM, No Organomegaly Extremities: No Cyanosis, No Clubbing, No edema Neurological: No Focal Motor or Sensory Deficit 12/25/17 18:23: Troponin I 0.29 H 12/25/17 22:35: Troponin I 0.29 H 12/26/17 05:02: Sodium 137, Potassium 4.9, Chloride 106, Carbon Dioxide 25.0, Anion Gap 6, BUN 24 H, Creatinine 1.79 H, Est GFR (MDRD) Af Amer 52 L, Est GFR (MDRD) Non-Af 43 L, BUN/Creatinine Ratio 13.4, Glucose 91, Calcium 9.1, Troponin I 0.26 H, Triglycerides 51, Cholesterol 85, LDL Cholesterol 33, VLDL Cholesterol 10, HDL Cholesterol 42 12/26/17 05:02: WBC 5.8, RBC 3.94 L, Hgb 11.9 L, Hct 36.8 L, MCV 93.4, MCH 30.2, MCHC 32.3, RDW 13.7, RDW Differential 47.1 H, Plt Count 101 L, MPV 10.2 Rhythm: Telemetry negative EKG: As above ECHO: Pending Stress Test: Pending Cardiac Cath: PCI: CT Surgery: Holter monitor: EPS: PPM: CXR: Chest CT Scan: Assessment/Plan 1. Coronary artery disease: The patient has a history of four-vessel bypass surgery in 2005, with minimal antilipid therapy over the last 10 years as his Lipitor was discontinued and not restarted. In addition he has a history of end-stage renal disease status post renal transplant in both 1993 and again in 2009 as well as hypertension, and glomerular nephropathy with stage III chronic kidney disease. Patient presents with substernal chest pressure, subtle dynamic lateral EKG changes, and slightly positive troponin. Given the patient's constellation of symptoms, I believe he may require a diagnostic coronary angiogram and graft angiography, but prior to this, and to give respect to the patient's concern for his renal transplant in the face of chronic kidney insufficiency, I recommended that we pre-hydrate the patient at least for 24 hours with 0.9 normal saline at 75 cc/h, that he undergo a modified Terry treadmill echocardiogram to determine if he has any overt wall motion and normalities to further justify exposure of contrast dye during catheterization, obtain his bypass graft report from Dr. Logan's office so that we are not searching for his bypass grafts, and then only proceed with catheterization if his stress test is markedly abnormal. If the patient's stress test is within normal limits and he continues to have anginal symptoms he will require a diagnostic coronary angiogram in the future. In the meantime we will continue baby aspirin, loaded with Plavix 300 mg p.o. ?1, followed by 75 mg p.o. daily. In addition I recommend obtaining a fasting lipid profile, and restarting his Lipitor for both his coronary and peripheral vascular disease. Given his peripheral vascular disease, the patient may require long-term dual antiplatelet therapy. I had a long and thorough discussion with the patient regarding the risk and benefits of the catheterization procedure, and he agrees to be evaluated with a stress test first followed by catheterization if indicated. I am in complete agreement with the patient with respect to the concerns of his kidney transplant and avoiding any contrast dye other than what is absolutely necessary. It is possible the patient may require a diagnostic coronary angiogram followed by staged angioplasty to make sure we minimize his contrast dye. This would have to be balanced against possible peripheral vascular disease in his right femoral aortoiliac system which he has noted his present per his history. 2. Hyperlipidemia: Patient's LDL is 33 and HDL is 42. Despite this, the patient has had aggressive vasculopathy most likely a result of his chronic renal insufficiency and periodic need for dialysis. Recommend initiating low-dose Lipitor 10 mg p.o. nightly. 3. It is doubtful the patient has a pulmonary embolus as his d-dimer is quite low, his O2 sats are okay on room air, and he has no associated baseline shortness of breath at this time. I would not recommend CTA of the chest as this would further exposing the contrast dye for a diagnosis which is very low on the differential. 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 If there is any concern for pulmonary embolism I would recommend a VQ scan first. 4. We await the results of his modified Terry stress echocardiogram later this afternoon. Thank you very much for the opportunity for cardiac consultation on your patient. Consultation time took place between AM and 10:30 AM. Code Visit Inpatient E&M: 74030 Init Hosp L3
[2017-12-26] MEDS: Metoprolol Tartrate 50 MG Tablet PO (10:41)
[2017-12-26] MEDS: 0.9% Normal Saline 1,000 ML 75 ML IV (10:41)
[2017-12-26] MEDS: Clopidogrel Bisulfate 300 MG Tablet PO (10:41)
[2017-12-26] MEDS: ALPRAZolam 0.25 MG Tablet PO (10:41)
[2017-12-26] MEDS: Doxazosin 4 MG Tablet 8 MG PO (10:42)
--- NOTE | 2017-12-26 10:45 | CON.PCM_ITS ---
Problem List (1) History of heart bypass surgery Status: Acute (2) Aortic insufficiency Status: Acute (3) Hypercholesterolemia Status: Acute (4) Hypertension Status: Chronic (5) Troponin I above reference range Status: Acute (6) Abnormal EKG Status: Acute (7) Coronary artery disease Status: Chronic Reason for Consult Date of Consultation: 12/26/17 Reason for Consultation: Unstable angina, abnormal troponin, abnormal EKG, coronary artery disease status post bypass surgery, aortic insufficiency, hypertension, hypercholesterolemia History of Present Illness: The patient is a 47 year old M with a complex past medical history, nondiabetic , former smoker of about 1.5 packs per day for about 14 years and quit about 8 years ago, former heavy drinker drinking anywhere between a 12 pack of beer plus a bottle of liquor every day for about 4 years time, decreased this and around year 1999. Patient has had kidney issues ever since he was 3 years old requiring nephrostomy tubes, eventually leading to complete renal failure. Patient was placed on dialysis and underwent renal transplant in 1993 and [facility] which lasted until around 2000 at which time it was explanted due to rejection. He then was on dialysis for around 10 years and underwent repeat renal transplant at [facility] in 2009, this time being placed on the left side. In 2005 the patient was found to have an abnormal EKG, which progressed to a urgent left heart catheterization demonstrated multivessel coronary disease. Patient underwent urgent four-vessel bypass surgery in 2005 in [place]. While the patient was on dialysis in 2007 he developed hyperkalemia and EKG changes and ventricular arrhythmias requiring urgent relook left heart catheterization [facility]. According to the patient his grafts were patent at that time. For some reason the patient was on Lipitor up until around 2007, at which time his insurance apparently stopped paying for his Lipitor. The patient has been off Lipitor for the better part of 10 years. His lipid profile however has remained relatively okay with an LDL of 60 and an HDL of 41 by last check. He also has a known history of aortic insufficiency and underwent echocardiogram in September 2017 which demonstrated relatively intact LV function with an EF around 55%, and mild aortic insufficiency. The patient is followed up with Dr. 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 We do not have the results of that test however he did not require repeat catheterization. In addition the patient appears to have evidence of claudication symptoms in his leg and has been told that he has possible peripheral vascular disease. He was awaiting carbon dioxide imaging of his lower extremities in the near future. 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 His symptoms also appear to be pleuritic in nature worsening with respiration. His symptoms resolved on their own,, where he continues to drive to [place], but on his way back he had recurrent substernal chest pressure seeking medical attention at [facility]. In the emergency room an EKG was performed which demonstrated normal sinus rhythm, subtle lateral ST segment depression and T-wave inversion, and a troponin of 0.21, and a creatinine of 1.89. Patient was treated with sublingual nitroglycerin, and his symptoms completely resolved. His troponins have remained flat. Patient was given IV fluid hydration overnight and his creatinine has improved to 1.79. Telemetry overnight has been negative. EKG this morning shows normal sinus rhythm with subtle lateral ST segment depression and T-wave inversion. No further chest pain. D-dimer is negative. Echocardiogram was done this morning, and pulmonary results show intact LV function and possibly mild pulmonary hypertension. Final result pending. Renal consultation obtained recommended IV fluid hydration pre-and post catheterization. Patient is extremely concerned about his renal transplant, and wants to make sure that he does not require IV contrast dye unless it is fully necessary. [] Past Medical History Allergies/Adverse Reactions: Allergies acetaminophen [From Darvocet-N] Allergy (Verified 05/12/16 08:44) Hives propoxyphene napsylate [From Darvocet-N] Allergy (Verified 05/12/16 08:44) Hives venom-honey bee [bee venom (honey bee)] Allergy (Verified 05/12/16 08:44) Hives Home Medications: Ambulatory Orders Medication Instructions Recorded Aspirin [Aspirin, Baby] 81 mg PO DAILY@0800 02/21/14 Doxazosin Mesylate [Cardura] 8 mg PO DAILY 02/21/14 Metoprolol Tartrate [Lopressor 75 mg PO BID 02/21/14 (beta hong)] Mycophenolate Mofetil [Cellcept] 250 mg PO BID 02/21/14 Omeprazole [Prilosec] 20 mg PO DAILY 02/21/14 Sulfamethoxazole/Trimethoprim 1 tablet PO DAILY 02/21/14 [Bactrim 400-80 mg Tablet] Tacrolimus Anhydrous [Prograf] 0.5 mg PO BID 02/21/14 predniSONE tablet 7.5 mg PO DAILY 02/21/14 Magnesium Oxide [Mgo] 400 mg PO BID 12/25/17 Umeclidinium Brm/Vilanterol Tr 1 puff INHALATION QHS 12/25/17 [Anoro Ellipta 62.5-25 Mcg INH] Past Medical History (Chronic Problems): Chronic Problems Hypertension (Chronic) Hypertension (Chronic) Coronary artery disease (Chronic) History of renal transplant (Chronic) Surgical History: coronary bypass surgery, - - Renal transplantation, bladder surgery, pericardial window secondary to renal failure Smoking Status: Former smoker Review of Systems - Review of Systems General: Denies: Fever, Night Sweats, Fatigue Cardiovascular: Reports: Chest Discomfort, Chest Discomfort with Exertion, Shortness of Breath, Shortness of Breath with Exertion. Denies: Orthopnea, PND , Peripheral Edema, Palpitations, Lightheadedness, Dizziness, Near Syncope, Syncope Respiratory: Denies: Cough, Sputum Production, Hemoptysis Gastrointestinal: Denies: Hematemesis, Hematochezia, Melena Genitourinary: Denies: Dysuria, Hematuria Skin: Denies: Rash Subjectve: Patient laying in bed, no acute distress. Objective: Vital Signs Temp Pulse Resp BP Pulse Ox 97.7 F L 54 L 16 139/45 H 96 12/26/17 09:36 12/26/17 09:36 12/26/17 09:36 12/26/17 09:36 12/26/17 09:36 Oxygen Delivery Method Room Air Weight: 142 lb 14.4 oz Body Mass Index (BMI) 23.8 Intake and Output for Last 24 Hours 12/24/17 12/25/17 12/26/17 23:59 23:59 23:59 Intake Total 645 / 645 406 / 406 Balance 645 / 645 406 / 406 General: Awake, Alert, Oriented x 3 HEENT: PERRL, EOMI, Sclera Non Icteric Neck: Supple, Good ROM, No Lymph Node Enlargement Lungs: Clear to auscultation Cardiovascular: Regular Rhythm, Normal S1, Normal S2, No Rubs, No Gallops Murmur Murmur: Grade 2/6, Holosystolic, Early Diastolic Vascular: No Carotid Bruits, Normal Femoral Pulses, Normal Radial Pulses, Normal Dorsalis Pedal Pulse, Normal Posterior Tibial Pulses Abdomen: Bowel Sounds Present, Soft, Non Tender, No HSM, No Organomegaly Extremities: No Cyanosis, No Clubbing, No edema Neurological: No Focal Motor or Sensory Deficit 12/25/17 18:23: Troponin I 0.29 H 12/25/17 22:35: Troponin I 0.29 H 12/26/17 05:02: Sodium 137, Potassium 4.9, Chloride 106, Carbon Dioxide 25.0, Anion Gap 6, BUN 24 H, Creatinine 1.79 H, Est GFR (MDRD) Af Amer 52 L, Est GFR ( MDRD) Non-Af 43 L, BUN/Creatinine Ratio 13.4, Glucose 91, Calcium 9.1, Troponin I 0.26 H, Triglycerides 51, Cholesterol 85, LDL Cholesterol 33, VLDL Cholesterol 10, HDL Cholesterol 42 12/26/17 05:02: WBC 5.8, RBC 3.94 L, Hgb 11.9 L, Hct 36.8 L, MCV 93.4, MCH 30.2 , MCHC 32.3, RDW 13.7, RDW Differential 47.1 H, Plt Count 101 L, MPV 10.2 Rhythm: Telemetry negative EKG: As above ECHO: Pending Stress Test: Pending Cardiac Cath: PCI: CT Surgery: Holter monitor: EPS: PPM: CXR: Chest CT Scan: Assessment/Plan 1. Coronary artery disease: The patient has a history of four-vessel bypass surgery in 2005, with minimal antilipid therapy over the last 10 years as his Lipitor was discontinued and not restarted. In addition he has a history of end -stage renal disease status post renal transplant in both 1993 and again in 2009 as well as hypertension, and glomerular nephropathy with stage III chronic kidney disease. Patient presents with substernal chest pressure, subtle dynamic lateral EKG changes, and slightly positive troponin. Given the patient's constellation of symptoms, I believe he may require a diagnostic coronary angiogram and graft angiography, but prior to this, and to give respect to the patient's concern for his renal transplant in the face of chronic kidney insufficiency, I recommended that we pre-hydrate the patient at least for 24 hours with 0.9 normal saline at 75 cc/h, that he undergo a modified Terry treadmill echocardiogram to determine if he has any overt wall motion and normalities to further justify exposure of contrast dye during catheterization, obtain his bypass graft report from Dr. Logan's office so that we are not searching for his bypass grafts, and then only proceed with catheterization if his stress test is markedly abnormal. If the patient's stress test is within normal limits and he continues to have anginal symptoms he will require a diagnostic coronary angiogram in the future. In the meantime we will continue baby aspirin, loaded with Plavix 300 mg p.o. ?1 , followed by 75 mg p.o. daily. In addition I recommend obtaining a fasting lipid profile, and restarting his Lipitor for both his coronary and peripheral vascular disease. Given his peripheral vascular disease, the patient may require long-term dual antiplatelet therapy. I had a long and thorough discussion with the patient regarding the risk and benefits of the catheterization procedure, and he agrees to be evaluated with a stress test first followed by catheterization if indicated. I am in complete agreement with the patient with respect to the concerns of his kidney transplant and avoiding any contrast dye other than what is absolutely necessary. It is possible the patient may require a diagnostic coronary angiogram followed by staged angioplasty to make sure we minimize his contrast dye. This would have to be balanced against possible peripheral vascular disease in his right femoral aortoiliac system which he has noted his present per his history. 2. Hyperlipidemia: Patient's LDL is 33 and HDL is 42. Despite this, the patient has had aggressive vasculopathy most likely a result of his chronic renal insufficiency and periodic need for dialysis. Recommend initiating low- dose Lipitor 10 mg p.o. nightly. 3. It is doubtful the patient has a pulmonary embolus as his d-dimer is quite low, his O2 sats are okay on room air, and he has no associated baseline shortness of breath at this time. I would not recommend CTA of the chest as this would further exposing the contrast dye for a diagnosis which is very low on the differential. 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 If there is any concern for pulmonary embolism I would recommend a VQ scan first. 4. We await the results of his modified Terry stress echocardiogram later this afternoon. Thank you very much for the opportunity for cardiac consultation on your patient. Consultation time took place between AM and 10:30 AM. Code Visit Inpatient E&M: 84363 Init Hosp L3
--- NOTE | 2017-12-26 11:00 | STE_ITS ---
Reason For Study: CAD, Chest Pain Stress Results Protocol: Dobutamine Stress Echo Maximum Predicted HR: 172 bpm Target HR: 146 bpm% Maximum Pre dicted HR: 48 % Heart Stage Duration Rate BPCom ment (mm:ss) (bpm) Attempted Modified Terry, Able to Walk for 5:03, Max HR 66, Baseline 51 137/5 4Changed to Dobutamine DSE 10 MCG 4:07 45 122/78 DSE 20 MCG 3:11 51 124/72 DSE 30 MCG 3:00 58 132/70Atroping 0.5 MG IVP, 8/10 Chest Pressure DSE 40 MCG 3:40 83 122/70Atropine 0.5 MG IVP; 8/10 Chest Pressure 8/10 Chest Pressure, Morphine 1 MG IVP Given, Chest Pressure Recovery 73 124/6 4Decreased to 510 Stress Duration: 13:58 mm:ss Maximum Stress HR: 83 bpmMET S: 1 Baseline Echocardiogram Findings The estimated ejection fraction is 65 %. Stress Echo Wall motion Data Resting WMIntermediate WMStress WM Resting Wall Motion Wall Motion Stress No regional wall motion Infero-Basal: Mildly hypokinetic. abnormalities noted. Lateral-Basal: Mildly hypokinetic. EKG Data Normal intervals are noted. The patient was titrated from 10 mcg to a maximum of 40 mcg of dobutamine during the stress. The maximum heart rate attained was 90 beats per minute. This was 52% of maximum predicted heart rate. The stress ECG displays diffuse abnormal ST segments. Interpretation Summary The estimated ejection fraction is 65 %. Infero-Basal: Mildly hypokinetic Lateral-Basal: Mildly hypokinetic Abnormal, adequate, dobutamine echocardiogram. Positive for ischemia by EKG and echocardiographic criteria. Positive for angina at peak infusion. Patient developed 8 out of 10 chest pressure during infusion which decreased to 5 out of 10 during recovery. Patient had initially pseudonormalization of his inferior lateral ST segment depression during infusion which then returned to ST segment depression post infusion. Patient developed proximal inferior lateral and posterior lateral hypokinesis during peak infusion. Chest pain resolved prior to returning back to the room with morphine administration. Appropriate blood pressure response to dobutamine. Test terminated due to chest pain and abnormal EKG and abnormal echocardiogram. Patient tolerated procedure well. Final LVEF of 55%. Ordering Physician: Abraham Moreira Referring Physician: Galindo Khan Performed By: Morena Mae, VERONIKA, RVT
--- NOTE | 2017-12-26 13:20 | CHAPLAIN ---
Type of Pastoral Visit _x__ Initial Visit ___ Follow-up Visit ___ On-call Visit ___ General Patient Visit ___ Spiritual Assessment ___ Family Conference ___ Bereavement ___ Rapid Response ___ Code Blue ___ Other (describe below) Pastoral Care Referral From _x__ Patient ___ Family ___ Nurse ___ Physician ___ Career Placement Services Counselor ___ Supervisor [employer] ___ Other (describe below) Sacrament/Intervention _x__ Active listening ___ Anointing ___ Nondenominational ___ Bereavement ___ Communion _x__ Irina exploration ___ _x__ Life review _x__ Prayer ___ Reconciliation ___ Sacrament of Sick _x__ Supportive presence ___ Wedding ___ Other (describe below) Pastoral Comments found patient very willing to talk; pt expressed his life stresses and questions/doubts about God/irina; spouse is with him; pt has had long history of health issues and says he is not anxious about the experience; rather he is more concerned about the circumstances of life; pt would welcome further visits
--- NOTE | 2017-12-26 13:35 | PCM.PROGNOTE ---
<Joselo Alcantar - Last Filed: 12/26/17 13:35> Patient Problems: Active and Suspected Problems Chronic kidney disease, stage 3 (Acute) Renal transplant recipient (Acute) Immunosuppressed status (Acute) History of heart bypass surgery (Acute) Aortic insufficiency (Acute) Hypercholesterolemia (Acute) Troponin I above reference range (Acute) Abnormal EKG (Acute) Subjective: Pt resting in bed this AM sleepy but rousable. On waking he complains of continued chest pain midsternal and somewhat to the left that has been intermittent all night. No SOB no cough. No sweats/diaphoresis, fever, chills. - Physical Exam General: Alert, Oriented x3, Cooperative HEENT: Atraumatic, PERRLA, EOMI, Normocephalic Neck: Supple, No JVD, Negative Carotid Bruits Lungs: Clear to auscultation, Normal air movement Cardiovascular: Regular rate, Murmur - 3/6 systolic murmur best over 2nd intercostal space RSB Abdomen: Bowel Sounds Present, Soft, Non Tender Extremities: No edema, Capillary Refill Less than 3 Seconds Skin: No rashes, No breakdown Musculoskeletal: No Tenderness to Palpation of Joints or Extremities Neurological: Cranial nerves II-XII grossly intact Psych/Mental Status: Normal Affect, Appropriate Vital Signs Temp Pulse Resp BP Pulse Ox 97.7 F L 50 L 16 139/45 H 96 12/26/17 09:36 12/26/17 10:53 12/26/17 09:36 12/26/17 09:36 12/26/17 09:36 Oxygen Delivery Method Room Air Weight: 64.818 kg Body Mass Index (BMI) 23.8 Intake and Output for Last 24 Hours 12/24/17 12/25/17 12/26/17 23:59 23:59 23:59 Intake Total 645 / 645 842 / 842 Balance 645 / 645 842 / 842 Laboratory Tests Past 24 Hrs 12/25/17 12/25/17 12/26/17 18:23 22:35 05:02 WBC RBC Hgb Hct MCV MCH MCHC RDW RDW Differential Plt Count MPV Sodium 137 Potassium 4.9 Chloride 106 Carbon Dioxide 25.0 Anion Gap 6 BUN 24 H Creatinine 1.79 H Estim Creat Clear Calc 43.90 Est GFR (MDRD) Af Amer 52 L Est GFR (MDRD) Non-Af 43 L BUN/Creatinine Ratio 13.4 Glucose 91 Calcium 9.1 Troponin I 0.29 H 0.29 H 0.26 H Triglycerides 51 Cholesterol 85 LDL Cholesterol 33 VLDL Cholesterol 10 HDL Cholesterol 42 12/26/17 05:02 WBC 5.8 RBC 3.94 L Hgb 11.9 L Hct 36.8 L MCV 93.4 MCH 30.2 MCHC 32.3 RDW 13.7 RDW Differential 47.1 H Plt Count 101 L MPV 10.2 Sodium Potassium Chloride Carbon Dioxide Anion Gap BUN Creatinine Estim Creat Clear Calc Est GFR (MDRD) Af Amer Est GFR (MDRD) Non-Af BUN/Creatinine Ratio Glucose Calcium Troponin I Triglycerides Cholesterol LDL Cholesterol VLDL Cholesterol HDL Cholesterol Medical Necessity - Tobacco Use Smoking Status: Former smoker Assessment/Plan Active and Suspected Problems Chronic kidney disease, stage 3 (Acute) Renal transplant recipient (Acute) Immunosuppressed status (Acute) History of heart bypass surgery (Acute) Aortic insufficiency (Acute) Hypercholesterolemia (Acute) Troponin I above reference range (Acute) Abnormal EKG (Acute) 1. Chest pain/Unstable Angina - continues intermittently. Indeterminate troponin. On nitro prn. No heparin as he is thrombocytopenic and may have cath. Echo done. Will have stress test. He is at high risk for kidney issues as he has one transplanted kidney. CTA not indicated due to no SOB and negative D dimer, risk for renal complications with possible cath would be severe. He is mildly bradycardic has lost 47, usually 50s, appears to be normal sinus.. -Echocardiogram: EF 60%, normal diastolic G, RVSP 41, mild pulmonary hypertension, 1+ MVI, TVI, JUAN. 2. CKDIII with renal transplant - nephrology is following. On CellCept, prednisone, Prograf 3. HTN - stable 4. CAD prior CABG. Follows Dr. Choudhury. Not on statin. LDL is 33. Continue aspirin, metoprolol, morphine, Cardura 5. Anemia of chronic dz - stable 6. Thrombocytopenia-stable, defer heparin products at this time. DVT prophylaxis: SCDs This patient was seen by Joselo Alcantar PA-C under the supervision of Doctor Lissett. <Russell Galeana - Last Filed: 12/26/17 14:50> - Physical Exam Vital Signs Temp Pulse Resp BP Pulse Ox 97.7 F L 50 L 16 139/45 H 96 12/26/17 09:36 12/26/17 10:53 12/26/17 09:36 12/26/17 09:36 12/26/17 09:36 Oxygen Delivery Method Room Air Weight: 142 lb 14.388 oz Body Mass Index (BMI) 23.8 Intake and Output for Last 24 Hours 12/24/17 12/25/17 12/26/17 23:59 23:59 23:59 Intake Total 645 / 645 842 / 842 Balance 645 / 645 842 / 842 Laboratory Tests Past 24 Hrs 12/25/17 12/25/17 12/26/17 18:23 22:35 05:02 WBC RBC Hgb Hct MCV MCH MCHC RDW RDW Differential Plt Count MPV Sodium 137 Potassium 4.9 Chloride 106 Carbon Dioxide 25.0 Anion Gap 6 BUN 24 H Creatinine 1.79 H Estim Creat Clear Calc 43.90 Est GFR (MDRD) Af Amer 52 L Est GFR (MDRD) Non-Af 43 L BUN/Creatinine Ratio 13.4 Glucose 91 Calcium 9.1 Troponin I 0.29 H 0.29 H 0.26 H Triglycerides 51 Cholesterol 85 LDL Cholesterol 33 VLDL Cholesterol 10 HDL Cholesterol 42 12/26/17 05:02 WBC 5.8 RBC 3.94 L Hgb 11.9 L Hct 36.8 L MCV 93.4 MCH 30.2 MCHC 32.3 RDW 13.7 RDW Differential 47.1 H Plt Count 101 L MPV 10.2 Sodium Potassium Chloride Carbon Dioxide Anion Gap BUN Creatinine Estim Creat Clear Calc Est GFR (MDRD) Af Amer Est GFR (MDRD) Non-Af BUN/Creatinine Ratio Glucose Calcium Troponin I Triglycerides Cholesterol LDL Cholesterol VLDL Cholesterol HDL Cholesterol Assessment/Plan Hospitalist note: I am seeing this patient in conjunction with Joselo Alcantar. I independently seen and examined the patient. Progress note above, laboratory data and imaging studies reviewed. I agree with the above treatment plan. Patient was admitted for intermittent chest pain/heaviness in the last 2 weeks which seemed to be exertional and associated with mild shortness of breath. He continued to complain of midsternal chest pressure, denied shortness of breath, sweating or nausea. His vital signs are stable except bradycardia. - Physical Exam General: Alert, Oriented x3, Cooperative, No apparent distress. HEENT: Atraumatic, PERRLA, EOMI. Neck: Supple, No JVD, Negative Carotid Bruits, Trachea Midline, Thyroid Normal. Lungs: Coarse bilateral, otherwise clear no rhonchi, No wheeze, No rales. Cardiovascular: Regular rate, Regular Rhythm, Normal S1, Normal S2, PMI Normal questionable systolic murmur. Abdomen: Bowel Sounds Present, Soft, Non Tender, Non-Distended, No Hepato-splenomegaly. Extremities: No clubbing, No cyanosis, No edema Skin: No rashes, No breakdown Neurological: Neuro grossly intact Vital Signs stable except bradycardia. Assessment and plan: #1 chest pain/unstable angina: EKG without acute ischemic changes, revealed minimal T-wave inversion in leads V4, V5 and 6 which improved on today's EKG. Troponin is borderline flat troponin is borderline elevated and flat. Patient still symptomatic with chest pressure. Chest x-ray showed no acute findings. 2D echocardiogram revealed ejection fraction of 60%, other findings reviewed. Cardiology consulted and recommended to go with stress test initially because of history of chronic kidney disease well and kidney transplant. #2 stage III chronic kidney disease, status post transplant, he is on CellCept, prednisone and Prograf, nephrology consulted. #3 other chronic medical problems: Stable, continue current medications as above. This note was generated with [employer] dictation software. It may contain incorrect words, spelling, and punctuation that were not noted in checking the note before signing. Code Visit OBSV E&M: 21798 Subsequent observation care L2
[2017-12-26 15:06] LABS: Partial Thromboplast Time 30.3 Seconds (24.1-36.2)
--- NOTE | 2017-12-26 15:22 | CASEMGMT ---
Pt had asked to completed Living Will and POA forms. SW met w/pt, pt's and two bosses are in the room. Pt's bosses offered to leave, pt told them they could stay. SW asked pt if he would like to complete the forms, pt declined. SW inquired if he would like to review the forms, pt also declined. SW gave pt the blank forms, let him know if he changes his mind and would like to review or fill out the forms, SW remains available. Otherwise, no further social service needs are anticipated. FEI Rodrigez, TRIMMING MACHINE OPERATOR
[2017-12-26] MEDS: HEPARIN/D5w 25,000 UNITS 25,000 UNITS/250 ML IV.SOLN. 10 UNITS IV (15:51)
[2017-12-26] MEDS: Heparin Injection 5,000 UNITS/ML Syringe IV (15:51)
--- NOTE | 2017-12-26 16:32 | CASEMGMT ---
Face to Face with patient for initial transition planning/care coordination assessment. JENNIFER COLMENARES introduced self and role at [facility], pt voices understanding and consents to assessment at this time. Pt is lying in bed in no distress at this time. Pt A/O x4 at this time and answers all questions appropriately at this time. Care providers, pharmacy, and demographics verified. See attached link. Pt voices no further concerns/needs at this time. Advised pt to ask for CM if any further questions/concerns/needs arise, voices understanding. CM to follow for any further discharge planning/needs, pt may need home oxygen. PLAN[place] JENNIFER COLMENARES
[2017-12-26] MEDS: 0.9% NaCl Peripheral Flush Adult/Peds IV ×2 (17:52→22:15)
[2017-12-26] MEDS: Morphine 2 MG/ML Syringe IV ×2 (17:52→22:15)
[2017-12-26 21:22] LABS: Bacteria 0 SEEN /hpf (None Seen); Mucous, Urine 0 SEEN /hpf (<or=2+); Red Blood Cells-Urine 0 SEEN /hpf (0-5); White Blood Cells 0 SEEN /hpf (0-5)
[2017-12-26 21:49] LABS: Color, Urine Yellow (Yellow); Glucose, Dipstick Normal (Normal); Ketone-Dipstick Negative (Negative); Leukocyte Esterase-Dipstick Negative /ul (Negative); Nitrite-Dipstick Negative (Negative); Occult Blood-Urine Negative /ul (Negative); Protein-Dipstick Negative (Negative); Urine Bilirubin Dipstick Negative (Negative); Urine Clarity Sl. Cloudy (Clear); Urine Urobilinogen Normal (Normal)
[2017-12-26 22:02] LABS: Squamous Epithelial Cells - UA 0-5 SEEN /hpf (0-5)
[2017-12-26 22:39] LABS: Partial Thromboplast Time 165.4 Seconds (24.1-36.2)
[2017-12-27] VITALS (10 sets, daily range): BP systolic 105–143; BP diastolic 38–80; PULSE 47–58; RESP 16–18; TEMP 36.1–36.8; O2SAT 96–97
[2017-12-27] MEDS: 0.9% Normal Saline 1,000 ML 75 ML IV (01:48)
[2017-12-27] MEDS: 0.9% NaCl Peripheral Flush Adult/Peds IV (05:12)
[2017-12-27] MEDS: Morphine 2 MG/ML Syringe IV (05:13)
[2017-12-27 05:16] LABS: Hematocrit 35.2 % (40-54); Hemoglobin 11.7 g/dl (13.0-16.5); Mean Corp Hgb Conc 33.2 g/gl (32-36); Mean Corpuscular Hgb 31.4 pg (27.0-32.0); Mean Corpuscular Volume 94.4 fL (80-94); Mean Platelet Vol. 10.6 fl (6.2-12.0); Platelet Count 113 K/mm3 (150-450); RBC Distribution Width CV 13.6 % (11.6-14.6); Red Blood Count 3.73 M/mm3 (4.6-6.2); White Blood Count 5.2 K/mm3 (4.4-11.0)
[2017-12-27 05:26] LABS: Prothrombin Time (Protime)PT. 12.8 SECONDS (11.7-14.9)
[2017-12-27 05:33] LABS: Scan Indicated on CBC? Y/N NO
[2017-12-27 05:48] LABS: Anion Gap 6 (5-15); BUN 23 mg/dL (7-18); BUN/Creat Ratio 12.1 RATIO (10-20); Calcium,Total 8.8 mg/dL (8.5-10.1); Chloride 106 mmol/L (98-107); Cholesterol 86 mg/dL (200); EST Glomerular Filtration Rate 40 mL/min (>60); Est Glom Filt Rate - Afr Amer 49 mL/min (>60); Estimated Creatinine Clearance 41.36 ml/min; Glucose 99 mg/dL (74-106); High Density Lipoprotein 41 mg/dL; Sodium Level 138 mmol/L (136-145); Triglycerides 46 mg/dL; Very Low Density Lipoprotein 9 mg/dL (5-40)
--- NOTE | 2017-12-27 05:55 | EKG12_ITS ---
Test Reason : AM EKG Blood Pressure : / mmHG Vent. Rate : 054 BPM Atrial Rate : 054 BPM P-R Int : 148 ms QRS Dur : 092 ms QT Int : 422 ms P-R-T Axes : 012 -39 -24 degrees QTc Int : 400 ms Sinus bradycardia Left axis deviation Abnormal ECG When compared with ECG of 25-DEC-2017 20:18, MANUAL COMPARISON REQUIRED, DATA IS UNCONFIRMED Confirmed by KAITLIN BURT, LANCE ([id number]), editor farm journal JENARO ALVARADO ([id number] on 12/31/2017 1:49:23 PM Referred By: DOROTHEA Confirmed By:LANCE MADRIGAL MD
[2017-12-27 06:27] LABS: Partial Thromboplast Time 68.3 Seconds (24.1-36.2)
[2017-12-27] MEDS: Metoprolol Tartrate 50 MG Tablet PO (06:27)
[2017-12-27] MEDS: Doxazosin 4 MG Tablet 8 MG PO (06:28)
[2017-12-27] MEDS: Aspirin E.C. 81 MG Tablet PO (06:28)
[2017-12-27] MEDS: DiphenhydrAMINE 25 MG Capsule 50 MG PO (06:28)
--- NOTE | 2017-12-27 07:27 | NURSING ---
report called to drop crew laborer. spoke with JENNIFER Denis. patient okay to be transported down to drop crew laborer.
--- NOTE | 2017-12-27 08:51 | PN.RENAL_ITS ---
Patient Problems: Active and Suspected Problems Chronic kidney disease, stage 3 (Acute) Renal transplant recipient (Acute) Immunosuppressed status (Acute) History of heart bypass surgery (Acute) Aortic insufficiency (Acute) Hypercholesterolemia (Acute) Troponin I above reference range (Acute) Abnormal EKG (Acute) Subjective: No acute events positive stress test. Still has some chest pain. Breathing is okay - Physical Exam General: Alert, Oriented x3 HEENT: Atraumatic Oral: Moist Mucosa Neck: Supple, No JVD Lungs: Clear to auscultation, Normal air movement Cardiovascular: Regular rate, Regular Rhythm, Normal S1, Normal S2 Abdomen: Bowel Sounds Present, Soft, Non Tender Extremities: No clubbing, No cyanosis, No edema Skin: No rashes Musculoskeletal: No Tenderness to Palpation of Joints or Extremities Lymphatic: No Cervical, Supraclavicular, or Inguinal Adenopathy Neurological: Cranial nerves II-XII grossly intact, Neuro grossly intact Psych/Mental Status: Normal Affect Vital Signs Temp Pulse Resp BP Pulse Ox 98.3 F 58 L 18 126/51 H 96 12/27/17 06:24 12/27/17 07:11 12/27/17 06:24 12/27/17 06:27 12/27/17 06:24 Oxygen Flow Rate (L/min) 2 Oxygen Delivery Method Room Air Weight: 64.818 kg Body Mass Index (BMI) 23.8 Intake and Output for Last 24 Hours 12/25/17 12/26/17 12/27/17 23:59 23:59 23:59 Intake Total 645 / 645 2077 / 2077 704.1 / 704.1 Balance 645 / 645 2077 704.1 / 704.1 Laboratory Tests Past 24 Hrs 12/26/17 12/26/17 12/26/17 14:40 20:45 21:58 WBC RBC Hgb Hct MCV MCH MCHC RDW RDW Differential Plt Count MPV PT INR APTT 30.3 165.4 H* Sodium Potassium Chloride Carbon Dioxide Anion Gap BUN Creatinine Estim Creat Clear Calc Est GFR (MDRD) Af Amer Est GFR (MDRD) Non-Af BUN/Creatinine Ratio Glucose Calcium Triglycerides Cholesterol LDL Cholesterol VLDL Cholesterol HDL Cholesterol Urine Color Yellow Urine Clarity Sl. Cloudy Urine pH 8.0 Ur Specific [place] 1.010 Urine Protein Negative Urine Glucose (UA) Normal Urine Ketones Negative Urine Occult Blood Negative Urine Nitrite Negative Urine Bilirubin Negative Urine Urobilinogen Normal Ur Leukocyte Esterase Negative Urine RBC 0 SEEN Urine WBC 0 SEEN Ur Squamous Epith Cells 0-5 SEEN Urine Bacteria 0 SEEN Urine Mucus 0 SEEN 12/27/17 12/27/17 12/27/17 05:00 05:00 05:00 WBC 5.2 RBC 3.73 L Hgb 11.7 L Hct 35.2 L MCV 94.4 H MCH 31.4 MCHC 33.2 RDW 13.6 RDW Differential 45.0 H Plt Count 113 L MPV 10.6 PT 12.8 INR 1.0 APTT Sodium 138 Potassium 5.0 Chloride 106 Carbon Dioxide 26.0 Anion Gap 6 BUN 23 H Creatinine 1.90 H Estim Creat Clear Calc 41.36 Est GFR (MDRD) Af Amer 49 L Est GFR (MDRD) Non-Af 40 L BUN/Creatinine Ratio 12.1 Glucose 99 Calcium 8.8 Triglycerides 46 Cholesterol 86 LDL Cholesterol 36 VLDL Cholesterol 9 HDL Cholesterol 41 Urine Color Urine Clarity Urine pH Ur Specific [place] Urine Protein Urine Glucose (UA) Urine Ketones Urine Occult Blood Urine Nitrite Urine Bilirubin Urine Urobilinogen Ur Leukocyte Esterase Urine RBC Urine WBC Ur Squamous Epith Cells Urine Bacteria Urine Mucus 12/27/17 05:00 WBC RBC Hgb Hct MCV MCH MCHC RDW RDW Differential Plt Count MPV PT INR APTT 68.3 H Sodium Potassium Chloride Carbon Dioxide Anion Gap BUN Creatinine Estim Creat Clear Calc Est GFR (MDRD) Af Amer Est GFR (MDRD) Non-Af BUN/Creatinine Ratio Glucose Calcium Triglycerides Cholesterol LDL Cholesterol VLDL Cholesterol HDL Cholesterol Urine Color Urine Clarity Urine pH Ur Specific [place] Urine Protein Urine Glucose (UA) Urine Ketones Urine Occult Blood Urine Nitrite Urine Bilirubin Urine Urobilinogen Ur Leukocyte Esterase Urine RBC Urine WBC Ur Squamous Epith Cells Urine Bacteria Urine Mucus Medical Necessity - Tobacco Use Smoking Status: Former smoker Assessment/Plan Active and Suspected Problems Chronic kidney disease, stage 3 (Acute) Renal transplant recipient (Acute) Immunosuppressed status (Acute) History of heart bypass surgery (Acute) Aortic insufficiency (Acute) Hypercholesterolemia (Acute) Troponin I above reference range (Acute) Abnormal EKG (Acute) 1- CKD stage 3. 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 Cr is at baseline. Baseline Cr 1.5-2.0 mg/dL. Today Cr is 1.9 mg/dl Patient is at high risk for contrast induced nephropathy. I recommend to start the patient on Ns 75 cc/hour for 6 hours before and 6 hours after the cardiac cath.Please use the least possible amount of iso-osmolar contrast 2- ESRD s/p 2 renal transplant. last renal transplant was [facility]: On cellcept 250 BID, prograf 0.5 BID and prednisone 7.5 mg PO daily Prophylaxis : continue bactrim the same dose 3- Chest pain: management is as per the cardiology team. + stress test. going for cardiac cath this morning Will continue to follow Thank you for the consult Mary Jo Kolb MD [phone]
--- NOTE | 2017-12-27 09:43 | PCM.PN.CARD ---
Subjectve: No 24 hour events, patient referred for catheterization. Patient prepped with IV Solu-Medrol, IV Pepcid, IV Benadryl as well as p.o. Benadryl for possible previous IV contrast allergy reaction. Patient loaded with Plavix 3 mg ?1 yesterday, followed by 75 mg this morning. Objective: Vital Signs Temp Pulse Resp BP Pulse Ox 98.3 F 58 L 18 126/51 H 96 12/27/17 06:24 12/27/17 07:11 12/27/17 06:24 12/27/17 06:27 12/27/17 06:24 Oxygen Flow Rate (L/min) 2 Oxygen Delivery Method Room Air Weight: 142 lb 14.388 oz Body Mass Index (BMI) 23.8 Intake and Output for Last 24 Hours 12/25/17 12/26/17 12/27/17 23:59 23:59 23:59 Intake Total 645 / 645 8 / 8 704.1 / 704.1 Balance 645 / 645 2077 / 2077 704.1 / 704.1 General: Awake, Alert, Oriented x 3 HEENT: PERRL, EOMI, Sclera Non Icteric Neck: Supple, Good ROM, No Lymph Node Enlargement Lungs: Clear to auscultation Cardiovascular: Regular Rhythm, Normal S1, Normal S2, No Murmurs, No Rubs, No Gallops Vascular: No Carotid Bruits, Normal Femoral Pulses, Normal Radial Pulses, Normal Dorsalis Pedal Pulse, Normal Posterior Tibial Pulses Abdomen: Bowel Sounds Present, Soft, Non Tender, No HSM, No Organomegaly Extremities: No Cyanosis, No Clubbing, No edema Neurological: No Focal Motor or Sensory Deficit 12/26/17 14:40: APTT 30.3 12/26/17 20:45: Urine Color Yellow, Urine Clarity Sl. Cloudy, Urine pH 8.0, Ur Specific [place] 1.010, Urine Protein Negative, Urine Glucose (UA) Normal, Urine Ketones Negative, Urine Occult Blood Negative, Urine Nitrite Negative, Urine Bilirubin Negative, Urine Urobilinogen Normal, Ur Leukocyte Esterase Negative, Urine RBC 0 SEEN, Urine WBC 0 SEEN 12/26/17 21:58: APTT 165.4 H* 12/27/17 05:00: Sodium 138, Potassium 5.0, Chloride 106, Carbon Dioxide 26.0, Anion Gap 6, BUN 23 H, Creatinine 1.90 H, Est GFR (MDRD) Af Amer 49 L, Est GFR (MDRD) Non-Af 40 L, BUN/Creatinine Ratio 12.1, Glucose 99, Calcium 8.8, Triglycerides 46, Cholesterol 86, LDL Cholesterol 36, VLDL Cholesterol 9, HDL Cholesterol 41 12/27/17 05:00: WBC 5.2, RBC 3.73 L, Hgb 11.7 L, Hct 35.2 L, MCV 94.4 H, MCH 31.4, MCHC 33.2, RDW 13.6, RDW Differential 45.0 H, Plt Count 113 L, MPV 10.6 12/27/17 05:00: PT 12.8, INR 1.0 12/27/17 05:00: APTT 68.3 H Rhythm: EKG: ECHO: Stress Test: Cardiac Cath: PCI: CT Surgery: Holter monitor: EPS: PPM: CXR: Chest CT Scan: Medical Necessity - Tobacco Use Smoking Status: Former smoker Assessment/Plan 1. Coronary artery disease: The patient has a history of four-vessel bypass surgery in 2005, with minimal antilipid therapy over the last 10 years as his Lipitor was discontinued and not restarted. In addition he has a history of end-stage renal disease status post renal transplant in both 1993 and again in 2009 as well as hypertension, and glomerular nephropathy with stage III chronic kidney disease. Cath report from [facility] dated 12/24/06 showed the patient had severe multivessel coronary disease, left main disease, patent ROBERT to the LAD, patent saphenous vein graft OM #1, and patent saphenous vein graft OM #2. Patient presents with substernal chest pressure, subtle dynamic lateral EKG changes, and slightly positive troponin. Given the patient's constellation of symptoms, I believe he may require a diagnostic coronary angiogram and graft angiography, but prior to this, and to give respect to the patient's concern for his renal transplant in the face of chronic kidney insufficiency, I recommended that we pre-hydrate the patient at least for 24 hours with 0.9 normal saline at 75 cc/h, which has been completed. In addition, the patient was very concerned about his remaining kidney transplant and requested that he undergo a stress test prior to any catheterization to determine if he has any overt wall motion abnormalities to further justify exposure of contrast dye during catheterization. This was completed yesterday which demonstrated inferolateral ST segment depression, severe chest pain, and inferior/posterior and lateral hypokinesis. Patient is remained chest pain-free overnight. After consulting with Dr. Carranza's his primary renal physician, we proceeded with left heart catheterization after prepping the patient with IV contrast dye allergy preparatory medicines including Benadryl, IV Solu-Medrol, and IV Pepcid. The patient's renal transplant is in his left pelvis, and access was attempted via the right groin. We were unable to keep retrograde cannulate into the common iliac despite multiple wires including a Magic torque and Glidewire. Limited peripheral angiography demonstrated complete occlusion of the right common iliac artery. After consulting with Dr. Carranza'monique on whether to proceed with left groin access, it was decided to abort the procedure and transfer the patient [facility] where he can undergo either a radial or brachial approach, coronary angiography, graft angiography and possible PCI. At most the patient got a total of 4 cc of IV contrast dye to illuminate his right femoral artery. We will make copies of the patient's limited catheterization film, echo, and stress echo. We will make arrangements for the patient to be transferred [facility] where he can undergo controlled diagnostic coronary angiography and possible intervention. Patient was loaded with 3 mg of Plavix yesterday, and is on 75 mg daily. I had a long and thorough discussion with the patient regarding the risk and benefits of the catheterization procedure, and he agrees to be evaluated with a stress test first followed by catheterization if indicated. I am in complete agreement with the patient with respect to the concerns of his kidney transplant and avoiding any contrast dye other than what is absolutely necessary. It is possible the patient may require a diagnostic coronary angiogram followed by staged angioplasty to make sure we minimize his contrast dye. This would have to be balanced against possible peripheral vascular disease in his right femoral aortoiliac system which he has noted his present per his history. 2. Hyperlipidemia: Patient's LDL is 33 and HDL is 42. Despite this, the patient has had aggressive vasculopathy most likely a result of his chronic renal insufficiency and periodic need for dialysis. Recommend initiating low-dose Lipitor 10 mg p.o. nightly. 3. It is doubtful the patient has a pulmonary embolus as his d-dimer is quite low, his O2 sats are okay on room air, and he has no associated baseline shortness of breath at this time. I would not recommend CTA of the chest as this would further exposing the contrast dye for a diagnosis which is very low on the differential. 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 If there is any concern for pulmonary embolism I would recommend a VQ scan first. 4. At this time the sheath was removed from the patient's right groin, I will make arrangements for the patient undergo diagnostic coronary angiography at [facility] either under the care of Dr. Summers, or [address] Carranza's is going to get a hold of Dr. Summers or 1 of his colleagues to facilitate catheterization.
--- NOTE | 2017-12-27 09:52 | PN.CARD_ITS ---
Subjectve: No 24 hour events, patient referred for catheterization. Patient prepped with IV Solu-Medrol, IV Pepcid, IV Benadryl as well as p.o. Benadryl for possible previous IV contrast allergy reaction. Patient loaded with Plavix 3 mg ?1 yesterday, followed by 75 mg this morning. Objective: Vital Signs Temp Pulse Resp BP Pulse Ox 98.3 F 58 L 18 126/51 H 96 12/27/17 06:24 12/27/17 07:11 12/27/17 06:24 12/27/17 06:27 12/27/17 06:24 Oxygen Flow Rate (L/min) 2 Oxygen Delivery Method Room Air Weight: 142 lb 14.388 oz Body Mass Index (BMI) 23.8 Intake and Output for Last 24 Hours 12/25/17 12/26/17 12/27/17 23:59 23:59 23:59 Intake Total 645 / 645 8 / 8 704.1 / 704.1 Balance 645 / 645 2077 / 2077 704.1 / 704.1 General: Awake, Alert, Oriented x 3 HEENT: PERRL, EOMI, Sclera Non Icteric Neck: Supple, Good ROM, No Lymph Node Enlargement Lungs: Clear to auscultation Cardiovascular: Regular Rhythm, Normal S1, Normal S2, No Murmurs, No Rubs, No Gallops Vascular: No Carotid Bruits, Normal Femoral Pulses, Normal Radial Pulses, Normal Dorsalis Pedal Pulse, Normal Posterior Tibial Pulses Abdomen: Bowel Sounds Present, Soft, Non Tender, No HSM, No Organomegaly Extremities: No Cyanosis, No Clubbing, No edema Neurological: No Focal Motor or Sensory Deficit 12/26/17 14:40: APTT 30.3 12/26/17 20:45: Urine Color Yellow, Urine Clarity Sl. Cloudy, Urine pH 8.0, Ur Specific [place] 1.010, Urine Protein Negative, Urine Glucose (UA) Normal, Urine Ketones Negative, Urine Occult Blood Negative, Urine Nitrite Negative, Urine Bilirubin Negative, Urine Urobilinogen Normal, Ur Leukocyte Esterase Negative, Urine RBC 0 SEEN, Urine WBC 0 SEEN 12/26/17 21:58: APTT 165.4 H* 12/27/17 05:00: Sodium 138, Potassium 5.0, Chloride 106, Carbon Dioxide 26.0, Anion Gap 6, BUN 23 H, Creatinine 1.90 H, Est GFR (MDRD) Af Amer 49 L, Est GFR ( MDRD) Non-Af 40 L, BUN/Creatinine Ratio 12.1, Glucose 99, Calcium 8.8, Triglycerides 46, Cholesterol 86, LDL Cholesterol 36, VLDL Cholesterol 9, HDL Cholesterol 41 12/27/17 05:00: WBC 5.2, RBC 3.73 L, Hgb 11.7 L, Hct 35.2 L, MCV 94.4 H, MCH 31.4, MCHC 33.2, RDW 13.6, RDW Differential 45.0 H, Plt Count 113 L, MPV 10.6 12/27/17 05:00: PT 12.8, INR 1.0 12/27/17 05:00: APTT 68.3 H Rhythm: EKG: ECHO: Stress Test: Cardiac Cath: PCI: CT Surgery: Holter monitor: EPS: PPM: CXR: Chest CT Scan: Medical Necessity - Tobacco Use Smoking Status: Former smoker Assessment/Plan 1. Coronary artery disease: The patient has a history of four-vessel bypass surgery in 2005, with minimal antilipid therapy over the last 10 years as his Lipitor was discontinued and not restarted. In addition he has a history of end -stage renal disease status post renal transplant in both 1993 and again in 2009 as well as hypertension, and glomerular nephropathy with stage III chronic kidney disease. Cath report from [facility] dated 12/24/06 showed the patient had severe multivessel coronary disease, left main disease, patent ROBERT to the LAD, patent saphenous vein graft OM #1, and patent saphenous vein graft OM #2. Patient presents with substernal chest pressure, subtle dynamic lateral EKG changes, and slightly positive troponin. Given the patient's constellation of symptoms, I believe he may require a diagnostic coronary angiogram and graft angiography, but prior to this, and to give respect to the patient's concern for his renal transplant in the face of chronic kidney insufficiency, I recommended that we pre-hydrate the patient at least for 24 hours with 0.9 normal saline at 75 cc/h, which has been completed. In addition, the patient was very concerned about his remaining kidney transplant and requested that he undergo a stress test prior to any catheterization to determine if he has any overt wall motion abnormalities to further justify exposure of contrast dye during catheterization. This was completed yesterday which demonstrated inferolateral ST segment depression, severe chest pain, and inferior/posterior and lateral hypokinesis. Patient is remained chest pain-free overnight. After consulting with Dr. Carranza's his primary renal physician, we proceeded with left heart catheterization after prepping the patient with IV contrast dye allergy preparatory medicines including Benadryl, IV Solu-Medrol, and IV Pepcid. The patient's renal transplant is in his left pelvis, and access was attempted via the right groin. We were unable to keep retrograde cannulate into the common iliac despite multiple wires including a Magic torque and Glidewire. Limited peripheral angiography demonstrated complete occlusion of the right common iliac artery. After consulting with Dr. Carranza'monique on whether to proceed with left groin access , it was decided to abort the procedure and transfer the patient [facility] where he can undergo either a radial or brachial approach, coronary angiography, graft angiography and possible PCI. At most the patient got a total of 4 cc of IV contrast dye to illuminate his right femoral artery. We will make copies of the patient's limited catheterization film, echo, and stress echo. We will make arrangements for the patient to be transferred [facility] where he can undergo controlled diagnostic coronary angiography and possible intervention. Patient was loaded with 3 mg of Plavix yesterday, and is on 75 mg daily. I had a long and thorough discussion with the patient regarding the risk and benefits of the catheterization procedure, and he agrees to be evaluated with a stress test first followed by catheterization if indicated. I am in complete agreement with the patient with respect to the concerns of his kidney transplant and avoiding any contrast dye other than what is absolutely necessary. It is possible the patient may require a diagnostic coronary angiogram followed by staged angioplasty to make sure we minimize his contrast dye. This would have to be balanced against possible peripheral vascular disease in his right femoral aortoiliac system which he has noted his present per his history. 2. Hyperlipidemia: Patient's LDL is 33 and HDL is 42. Despite this, the patient has had aggressive vasculopathy most likely a result of his chronic renal insufficiency and periodic need for dialysis. Recommend initiating low- dose Lipitor 10 mg p.o. nightly. 3. It is doubtful the patient has a pulmonary embolus as his d-dimer is quite low, his O2 sats are okay on room air, and he has no associated baseline shortness of breath at this time. I would not recommend CTA of the chest as this would further exposing the contrast dye for a diagnosis which is very low on the differential. 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 If there is any concern for pulmonary embolism I would recommend a VQ scan first. 4. At this time the sheath was removed from the patient's right groin, I will make arrangements for the patient undergo diagnostic coronary angiography at [facility] either under the care of Dr. Summers, or [address] Carranza's is going to get a hold of Dr. Summers or 1 of his colleagues to facilitate catheterization.
--- NOTE | 2017-12-27 10:29 | CL.D_ITS ---
Patient Name: MARIAN BARROSO Study Date: 12/27/2017 Performing: Abraham Moerira MD Ht: 65 inches 165 cm : 1970 Wt: 143.5 lbs 65 kg Age: 47 Gender: male BSA: 1.72 PROCEDURE(S) PERFORMED [id number] NOT COMPLETED [id number] CLINICAL PROFILE AND INDICATIONS INDICATIONS: Unstable Angina Stress/Imaging Stress Echocardiogram: Yes Result: Positive High RiskStress Echocardiogram: Positi ve High Risk CAD Presentations: Non-STEMI. Symptom onset Date/Time: 12/25/2017 Time Not Available Comorbidities/Risk Factors: Current/Recent Smoker (< 1year) Hypertension Dyslipidemia Prior CABG Peripheral Arterial Disease CONCLUSIONS RECOMMENDATIONS Pt agreeable to transfer to [facility] where he can undergo cath either via right radial or brachial approac h for IV dye conservation, as well as possible PCI if indicated. D/w Dr Khan who will faciliate tx to [facility] for cath and/or PCI. Manual sheath removal successful. DESCRIPTION OF PROCEDURE The patient arrived to the procedure lab. The risks and benefits of the procedure as well as a full d escription of our services here and current unavailability of surgical backup were fully explained to the patient and/or their significant other prior to the catheterization. The Timeout was completed, verifying the correct patient and procedure. The patient's procedural site was prepped and draped in the usual fashion. Local anesthetic was given subcutaneously to right groin region with Lidocaine 2%. Using a modified Seldinger technique, arterial access was obtained via the right femoral artery, a 4 Fr sheath was inserted over glidewire .The arterial sheath was pulled and manual compression applied until hemostasis is achieved. CORONARY ANGIOGRAPHY PERIPHERAL FINDINGS: Right Common Iliac Artery Calcified 75 % Stenosis Right Common Iliac Artery 100 % Stenosis COMPLICATIONS No Complications PROCEDURE MEDICATIONS Oxygen: 2 L/min via nasal cannula Benadryl 25 mg IV @ 12/27/2017 08:18:06 Plavix 75 mg PO 12/27/2017 08:17:54 Pepcid 20 mg IV 12/27/2017 08:18:19 Solu-medrol 125 mg IV 12/27/2017 08:18:32 SUMMARY OF HEMODYNAMIC DATA Time AIR REST ECG 07:46:11 Signed By Abraham Moreira MD On 12/27/2017 10:28:28 Abraham Moreira MD
--- NOTE | 2017-12-27 10:43 | NURSING ---
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
--- NOTE | 2017-12-27 11:34 | PCM.DC.SUM ---
<Joselo Alcantar - Last Filed: 12/27/17 11:34> Discharge Date and Diagnosis Date of Admission: 12/25/17 Date of Discharge: 12/27/17 - Primary Discharge Diagnosis Unstable angina CKD III S/p renal transplant CAD HLD HTN Anemia of Chronic Dz Thrombocytopenia Mild Pulmonary HTN - Secondary Discharge Diagnosis Chronic Problems Hypertension (Chronic) Hypertension (Chronic) Coronary artery disease (Chronic) History of renal transplant (Chronic) Hospital Course and Treatment Imaging Results: RAD/Chest 1 View (Portable) IMPRESSION: Increased markings in the retrocardiac region. Early infiltrate should BE ruled out. Stable blunting of the left costophrenic angle. Stress Echo: Interpretation Summary The estimated ejection fraction is 65 %. Infero-Basal: Mildly hypokinetic Lateral-Basal: Mildly hypokinetic Abnormal, adequate, dobutamine echocardiogram. Positive for ischemia by EKG and echocardiographic criteria. Positive for angina at peak infusion. Patient developed 8 out of 10 chest pressure during infusion which decreased to 5 out of 10 during recovery. Patient had initially pseudonormalization of his inferior lateral ST segment depression during infusion which then returned to ST segment depression post infusion. Patient developed proximal inferior lateral and posterior lateral hypokinesis during peak infusion. Chest pain resolved prior to returning back to the room with morphine administration. Appropriate blood pressure response to dobutamine. Test terminated due to chest pain and abnormal EKG and abnormal echocardiogram. Patient tolerated procedure well. Final LVEF of 55%. 2D echo: Interpretation Summary The estimated ejection fraction is 60 %. Normal diastology for age. The left atrium is moderately enlarged. Mild (1+) mitral valve insufficiency. Mild (1+) tricuspid valve insufficiency. Right ventricular systolic pressure estimated to be 41 mmHg. Mild pulmonary hypertension. Mild (1+) aortic valve insufficiency. There is no comparison study available. Consults: Cardiology - [place] [facility] - [facility] Operations: None Procedures: 2-D Echocardiogram, Cardiac catheterization, Stress test Summary of Care Provided: Physical exam on day of discharge: General: Resting comfortably NAD Psych: A/Ox3 normal affect HEENT: [place] AT NC Neck: Supple NT CV: RRR no m/t/r/g/h Resp: CTA Abd: [id number] Soft NT no guarding or rigidity Ext: DP2+= no edema Skin: W/D normal turgor Lymph/Heme: No active bleeding or adenopathy Neuro: CN2-12 intact Hospital course: The patient is a 47 year old M with a hx of CAD s/p CABG, prior renal transplant, who presented to the ER with intermittent chest pain midsternal and somewhat left sided worse with exertion, which would last for minutes to hours. He was found to have no acute ST changes, but an elevated troponin at 0.29. He was admitted for unstable angina and cardiology was consulted. He was mildly lisa on the monitor. He was given prn nitro and started on heparin. He had a stress echo which was abnormal. Nephrology was consulted as there was concern for the need for a heart cath in a patient with a solitary transplanted kidney, on antirejection meds, CKDIII, and the need for contrast. He was loaded with plavix and prepped for cath, but this was aborted per cardiology discussion with the patients primary renal physician Dr. Carranza. At that time it was decided the patient would be transferred to [facility] under the care of Drs. Summers and Tere. He is transferred in stable condition. This patient was seen by Joselo Alcantar PA-C under the supervision of Doctor Galeana. [] Discharge Diet: - - as directed per accepting physician Discharge Activity: - - as directed by accepting physician Home Medications: Medications to take at Discharge Aspirin [Aspirin, Baby] 81 mg PO DAILY@0800 02/21/14 Doxazosin Mesylate [Cardura] 8 mg PO DAILY 02/21/14 Metoprolol Tartrate [Lopressor (beta hong)] 75 mg PO BID 02/21/14 Mycophenolate Mofetil [Cellcept] 250 mg PO BID 02/21/14 Omeprazole [Prilosec] 20 mg PO DAILY 02/21/14 Sulfamethoxazole/Trimethoprim [Bactrim 400-80 mg Tablet] 1 tablet PO DAILY 02/21/14 Tacrolimus Anhydrous [Prograf] 0.5 mg PO BID 02/21/14 predniSONE tablet 7.5 mg PO DAILY 02/21/14 Magnesium Oxide [Mgo] 400 mg PO BID 12/25/17 Umeclidinium Brm/Vilanterol Tr [Anoro Ellipta 62.5-25 Mcg INH] 1 puff INHALATION QHS 12/25/17 Primary Care Physician: Diana Tate PA [Primary Care Provider] - Disposition: Acute care Hospital Minutes spent on discharge:: 35 Patient Condition:: Stable Medical Necessity - Tobacco Use Smoking Status: Former smoker Meaningful Use Info Meaningful Use Diagnoses (Choose all that apply): None applicable <Russell Galeana E - Last Filed: 12/27/17 15:08> Discharge Date and Diagnosis - Secondary Discharge Diagnosis Chronic Problems Hypertension (Chronic) Hypertension (Chronic) Coronary artery disease (Chronic) History of renal transplant (Chronic) Hospital Course and Treatment Summary of Care Provided: Hospitalist note: Discharge summary above reviewed as well as physical examination and I agree with the discharge and transfer plan. Patient was admitted for unstable angina and he underwent stress echocardiogram that was abnormal and was positive for ischemia by EKG and echocardiographic criteria and patient developed 8 out of 10 chest pressure during the infusion. His ejection fraction was 55%. His EKG revealed no acute ischemic changes. His troponin was borderline elevated. ESRD status post renal transplant. Today, was taken down to bundle tier and labeler and catheterization attempted on the right side but failed because of totally occluded right common iliac artery and cannot performed on the left common iliac artery because of left kidney transplant which is a contraindication to catheterization. 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 Patient transferred to [facility] in a stable medical condition. . Code Visit Inpatient E&M: 93642 Disch Hosp
--- NOTE | 2017-12-27 11:44 | DS.PCM_ITS ---
<Joselo Alcantar - Last Filed: 12/27/17 11:34> Discharge Date and Diagnosis Date of Admission: 12/25/17 Date of Discharge: 12/27/17 - Primary Discharge Diagnosis Unstable angina CKD III S/p renal transplant CAD HLD HTN Anemia of Chronic Dz Thrombocytopenia Mild Pulmonary HTN - Secondary Discharge Diagnosis Chronic Problems Hypertension (Chronic) Hypertension (Chronic) Coronary artery disease (Chronic) History of renal transplant (Chronic) Hospital Course and Treatment Imaging Results: RAD/Chest 1 View (Portable) IMPRESSION: Increased markings in the retrocardiac region. Early infiltrate should BE ruled out. Stable blunting of the left costophrenic angle. Stress Echo: Interpretation Summary The estimated ejection fraction is 65 %. Infero-Basal: Mildly hypokinetic Lateral-Basal: Mildly hypokinetic Abnormal, adequate, dobutamine echocardiogram. Positive for ischemia by EKG and echocardiographic criteria. Positive for angina at peak infusion. Patient developed 8 out of 10 chest pressure during infusion which decreased to 5 out of 10 during recovery. Patient had initially pseudonormalization of his inferior lateral ST segment depression during infusion which then returned to ST segment depression post infusion. Patient developed proximal inferior lateral and posterior lateral hypokinesis during peak infusion. Chest pain resolved prior to returning back to the room with morphine administration. Appropriate blood pressure response to dobutamine. Test terminated due to chest pain and abnormal EKG and abnormal echocardiogram. Patient tolerated procedure well. Final LVEF of 55%. 2D echo: Interpretation Summary The estimated ejection fraction is 60 %. Normal diastology for age. The left atrium is moderately enlarged. Mild (1+) mitral valve insufficiency. Mild (1+) tricuspid valve insufficiency. Right ventricular systolic pressure estimated to be 41 mmHg. Mild pulmonary hypertension. Mild (1+) aortic valve insufficiency. There is no comparison study available. Consults: Cardiology - [place] [facility] - [facility] Operations: None Procedures: 2-D Echocardiogram, Cardiac catheterization, Stress test Summary of Care Provided: Physical exam on day of discharge: General: Resting comfortably NAD Psych: A/Ox3 normal affect HEENT: [place] AT NC Neck: Supple NT CV: RRR no m/t/r/g/h Resp: CTA Abd: [id number] Soft NT no guarding or rigidity Ext: DP2+= no edema Skin: W/D normal turgor Lymph/Heme: No active bleeding or adenopathy Neuro: CN2-12 intact Hospital course: The patient is a 47 year old M with a hx of CAD s/p CABG, prior renal transplant , who presented to the ER with intermittent chest pain midsternal and somewhat left sided worse with exertion, which would last for minutes to hours. He was found to have no acute ST changes, but an elevated troponin at 0.29. He was admitted for unstable angina and cardiology was consulted. He was mildly lisa on the monitor. He was given prn nitro and started on heparin. He had a stress echo which was abnormal. Nephrology was consulted as there was concern for the need for a heart cath in a patient with a solitary transplanted kidney, on antirejection meds, CKDIII, and the need for contrast. He was loaded with plavix and prepped for cath, but this was aborted per cardiology discussion with the patients primary renal physician Dr. Carranza. At that time it was decided the patient would be transferred to [facility] under the care of Drs. Summers and Tere. He is transferred in stable condition. This patient was seen by Joselo Alcantar PA-C under the supervision of Doctor Galeana. [] Discharge Diet: - - as directed per accepting physician Discharge Activity: - - as directed by accepting physician Home Medications: Medications to take at Discharge Aspirin [Aspirin, Baby] 81 mg PO DAILY@0800 02/21/14 Doxazosin Mesylate [Cardura] 8 mg PO DAILY 02/21/14 Metoprolol Tartrate [Lopressor (beta hong)] 75 mg PO BID 02/21/14 Mycophenolate Mofetil [Cellcept] 250 mg PO BID 02/21/14 Omeprazole [Prilosec] 20 mg PO DAILY 02/21/14 Sulfamethoxazole/Trimethoprim [Bactrim 400-80 mg Tablet] 1 tablet PO DAILY 02/21 Tacrolimus Anhydrous [Prograf] 0.5 mg PO BID 02/21/14 predniSONE tablet 7.5 mg PO DAILY 02/21/14 Magnesium Oxide [Mgo] 400 mg PO BID 12/25/17 Umeclidinium Brm/Vilanterol Tr [Anoro Ellipta 62.5-25 Mcg INH] 1 puff INHALATION QHS 12/25/17 Primary Care Physician: Diana Tate PA [Primary Care Provider] - Disposition: Acute care Hospital Minutes spent on discharge:: 35 Patient Condition:: Stable Medical Necessity - Tobacco Use Smoking Status: Former smoker Meaningful Use Info Meaningful Use Diagnoses (Choose all that apply): None applicable <Russell Galeana E - Last Filed: 12/27/17 15:08> Discharge Date and Diagnosis - Secondary Discharge Diagnosis Chronic Problems Hypertension (Chronic) Hypertension (Chronic) Coronary artery disease (Chronic) History of renal transplant (Chronic) Hospital Course and Treatment Summary of Care Provided: Hospitalist note: Discharge summary above reviewed as well as physical examination and I agree with the discharge and transfer plan. Patient was admitted for unstable angina and he underwent stress echocardiogram that was abnormal and was positive for ischemia by EKG and echocardiographic criteria and patient developed 8 out of 10 chest pressure during the infusion. His ejection fraction was 55%. His EKG revealed no acute ischemic changes. His troponin was borderline elevated. ESRD status post renal transplant. Today, was taken down to rags laborer and catheterization attempted on the right side but failed because of totally occluded right common iliac artery and cannot performed on the left common iliac artery because of left kidney transplant which is a contraindication to catheterization. 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 Patient transferred to [facility] in a stable medical condition. . Code Visit Inpatient E&M: 54750 Disch Hosp
== END 2017-12-27 11:26 | disposition short-term general hospital (02) | DRG 303 ==
LOC: ED 14:44 → PCU 16:04
PROVIDERS: Internal Medicine Cardiovascular Disease; Admitting Provider Internal Medicine; Emergency Provider Emergency Medicine; Family Provider Physician Assistant; PCP Physician Assistant; Visit Provider Hospitalist
DX: I25.110 Atherosclerotic heart disease of native coronary artery with unstable angina pectoris (principal); D69.6 Thrombocytopenia, unspecified; I27.20 Pulmonary hypertension, unspecified; Z94.0 Kidney transplant status; I12.9 Hypertensive chronic kidney disease with stage 1 through stage 4 chronic kidney disease, or unspecified chronic kidney disease; N18.3 Chronic kidney disease, stage 3 (moderate); Z87.891 Personal history of nicotine dependence; D63.8 Anemia in other chronic diseases classified elsewhere; E78.5 Hyperlipidemia, unspecified; Z79.899 Other long term (current) drug therapy; Z53.09 Procedure and treatment not carried out because of other contraindication; Z95.1 Presence of aortocoronary bypass graft; I70.8 Atherosclerosis of other arteries
CPT/HCPCS: 36415; 71045; 80048; 80061; 81001; 84484; 85025; 85027; 85379; 85610; 85730; 93005; 93017; 93306; 93350; 93458; 99283; J7030; A4216

== ENCOUNTER 2017-12-30 10:56 | Inpatient (IN) | payer MEDICARE, BC, SELFPAY ==
[2017-12-30 10:57] VITALS: BP 117/62; PULSE 66; RESP 17; TEMP 36.7; O2SAT 98; BMI 24.6
--- NOTE | 2017-12-30 11:52 | CT_ITS ---
STUDY: CT ABDOMEN AND PELVIS WITHOUT CONTRAST REASON FOR EXAM: Male, 47 years old. Nausea/vomiting/abdominal pain RADIATION DOSAGE (If Supplied By Facility): CTDIvol = ( 6.27 ) mGy, DLP = ( 324.06 ) mGycm TECHNIQUE: Transaxial images were obtained from the dome of the diaphragm to the symphysis pubis without oral contrast, and without intravenous contrast. Sagittal and coronal images were reconstructed. Individualized dose optimization techniques were used for this CT. COMPARISON: None. FINDINGS: There are chronic interstitial fibrotic changes of the lung bases. There are pleural calcifications in the left lung base along with dependent atelectasis and pleural thickening. Normal liver. Normal gallbladder and extrahepatic biliary system. Normal spleen. Normal pancreas. Normal bilateral adrenal glands. Neither [place] kidney noted. There is a transplanted kidney in the left hemipelvis free of obstruction. Normal visualized stomach. Multiple nondistended fluid-filled small bowel loops are noted consistent with ileus. Retained stool noted throughout the colon The appendix is visualized and appears normal. Appendix best seen on coronal recon image 63. There is diffuse atherosclerotic calcification of the abdominal aorta and its branches, without a demonstrated aneurysm. Normal inferior vena cava. Scattered subcentimeter mesenteric and retroperitoneal lymph nodes. Normal urinary bladder. There are prostatic calcifications. Normal abdominal wall. There are diffuse degenerative changes of the visualized lumbar spine. CT/Abdomen/Pelvis without Cont IMPRESSION: No suspicious solid organ abnormality, [place] kidneys have likely been removed. No CT evidence of an acute inflammatory process Small bowel ileus Retained stool throughout the colon Transplanted kidney noted in the left flank free of obstruction or inflammation. Diffuse atherosclerosis No free intraperitoneal fluid, or air. Electronically Signed: Fidel Rueda MD at 13:19 EDT , Service support ,
--- NOTE | 2017-12-30 11:53 | VDU_ITS ---
Reason For Study: Steve groin - s/p heart cath Right Velocities Left Velocities RT COMMODITIES BROKER - 1.0 x .89 cm with a velocity of 30.6 LT COMMODITIES BROKER - .89 x .96 cm with a velocity of 95.1 cm/sec cm/s RT CFV demonstrates normal phasic blood flow LT CFV demonstrates normal phasic blood flow signal signal. No evidence of Pseudoaneurysm or AV fistula. Procedure Exam performed portable in ED. Interpretation Summary Common femoral arteries appear bilaterally patent, demonstrating pulsatile color flow bilaterally. The common femoral veins are patent bilaterally, demonstrating normal, phasic venous flow. There is no evidence of pseudoanuerysm, arterio-venous fistula, or other iatrogenic abnormality on either side. Ordering Physician: Abraham Pardo Referring Physician: John Khan Performed By: Luna Mcgovern RVT
[2017-12-30] MEDS: HYDROmorphone 1 MG/ML Syringe IV ×2 (12:28→14:10)
[2017-12-30] MEDS: Ondansetron 4 MG/2 ML Vial IV (12:28)
[2017-12-30 12:55] LABS: Absolute Lymphocyte Count 0.51 X10^3/ul (0.83-4.51); Absolute Neutrophil Count 6.3 X10^3/uL (2.0-7.7); Eosinophils% 1.3 % (0-5); Hematocrit 36.9 % (40-54); Hemoglobin 12.1 g/dl (13.0-16.5); Lymphocyte # 0.51 X10^3/ul (4.0); Lymphocyte % 6.6 % (19-41); Mean Corp Hgb Conc 32.8 g/gl (32-36); Mean Corpuscular Hgb 30.6 pg (27.0-32.0); Mean Corpuscular Volume 93.4 fL (80-94); Mean Platelet Vol. 9.9 fl (6.2-12.0); Monocyte# 0.81 X10^3/uL; Monocyte% 10.5 % (0-10); Neutrophil # 6.26 X10^3/uL (2.7-7.7); Neutrophil % 81.2 % (47-70); Platelet Count 125 K/mm3 (150-450); RBC Distribution Width CV 13.4 % (11.6-14.6); RBC Distribution Width SD 44.4 fl (35.1-43.9); Red Blood Count 3.95 M/mm3 (4.6-6.2); White Blood Count 7.7 K/mm3 (4.4-11.0)
[2017-12-30 12:56] LABS: AST(SGOT) 16 U/L (15-37); Alanine Aminotransfer ALT/SGPT 26 U/L (16-61); Albumin, Serum 2.9 g/dL (3.2-5.0); Alkaline Phosphatase 129 U/L (45-117); Anion Gap 5 (5-15); BUN 27 mg/dL (7-18); BUN/Creat Ratio 17.5 RATIO (10-20); Calcium,Total 9.7 mg/dL (8.5-10.1); Chloride 105 mmol/L (98-107); Creatinine, Serum 1.54 mg/dL (0.70-1.30); EST Glomerular Filtration Rate 51 mL/min (>60); Est Glom Filt Rate - Afr Amer 62 mL/min (>60); Estimated Creatinine Clearance 51.03 ml/min; Globulin 2.8 g/dL (2.2-4.2); Glucose 85 mg/dL (74-106); Lipase 98 U/L (73-393); Potassium 4.7 mmol/L (3.5-5.1); Protein, Total 5.7 g/dL (6.4-8.2); Sodium Level 139 mmol/L (136-145)
[2017-12-30 12:57] LABS: Differential Indicated SCAN CRITERIA MET; POSITIVE COUNT NO; POSITIVE DIFFERENTIAL YES; POSITIVE MORPHOLOGY NO
[2017-12-30 13:46] VITALS: BP 107/52; PULSE 63; RESP 16; O2SAT 96
[2017-12-30 13:56] LABS: Bacteria 0 SEEN /hpf (None Seen); Mucous, Urine 0 SEEN /hpf (<or=2+); Squamous Epithelial Cells - UA 0 SEEN /hpf (0-5)
[2017-12-30 13:57] LABS: Color, Urine Yellow (Yellow); Glucose, Dipstick Normal (Normal); Ketone-Dipstick Negative (Negative); Leukocyte Esterase-Dipstick Negative /ul (Negative); Nitrite-Dipstick Negative (Negative); Occult Blood-Urine Negative /ul (Negative); Protein-Dipstick Negative (Negative); Urine Bilirubin Dipstick Negative (Negative); Urine Clarity Clear (Clear); Urine Urobilinogen Normal (Normal)
[2017-12-30 14:09] LABS: Red Blood Cells-Urine 0-5 SEEN /hpf (0-5)
[2017-12-30 14:10] LABS: White Blood Cells 0-5 SEEN /hpf (0-5)
[2017-12-30 14:47] VITALS: BMI 24.7
--- NOTE | 2017-12-30 14:48 | ED.VISSUMM ---
- ER Visit Summary Date of Service: 12/30/17 Chief Complaint: Abdominal pain History of Present Illness: The patient is a 47 M with lower abdominal pain that started yesterday morning. Pain is over his bilateral lower abdomen and radiates to his back and bilateral thighs. The patient had a cardiac catheterization on Saturday with axis in the right groin. He had a subsequent catheterization on the same day with axis on the left side. He does report increasing pain at the catheterization sites. Patient also has a history of a kidney transplant. The pain does not seem to be focused over the transplant, rather it is over his lower abdomen. He denies any nausea or vomiting. His last bowel movement was yesterday. Physical Examination: Signs unremarkable. The patient appears uncomfortable. Heart is regular. Lungs are clear. Abdomen is tender in the lower hemiabdomen. The groin sites appear clean dry and intact. No sign of bleeding or infection. He is neurovascular intact distally. Test Results: Ultrasounds show no evidence of pseudoaneurysm. CT shows retained stool and ileus. No other acute abnormalities to explain his symptoms. Hemoglobin 12.1 and platelets 125. BUN 27 and creatinine 1.54. Alk phos 129. Lipase normal. Urinalysis normal. Emergency Department Course and Treatment: She received Zofran, Dilaudid, and IV fluids. He had continued pain and required additional pain medicine. His workup is fairly unremarkable. He has signs of an ileus. Kidney function is improved from baseline and there is no pain focused over the transplant. Given his comorbidities and symptoms, I called the hospitalist for evaluation. Treatment Plan: As above Disposition: Admission Impression: 1. Ileus This note was generated with [employer] dictation software. It may contain incorrect words, spelling, and punctuation that were not noted in review of the chart prior to signing ED Disposition - Plan for ED Patient: Chief Complaint: Abd Pain Referrals: Diana Tate PA [Primary Care Provider] -
--- NOTE | 2017-12-30 15:15 | NURSING ---
213 OBS ABD PAIN WHITE
[2017-12-30 15:49] VITALS: BP 95/60; PULSE 61; RESP 14; O2SAT 97
--- NOTE | 2017-12-30 16:17 | PCM.HP.STD ---
Problem List (1) Chronic kidney disease, stage 3 Status: Chronic (2) Renal transplant recipient Status: Chronic (3) Immunosuppressed status Status: Chronic (4) History of heart bypass surgery Status: Chronic (5) Aortic insufficiency Status: Chronic Qualifiers: Cardiac valve disease etiology: etiology unspecified Qualified Code(s): I35.1 - Nonrheumatic aortic (valve) insufficiency (6) Hypercholesterolemia Status: Chronic (7) Hypertension Status: Chronic Qualifiers: Hypertension type: essential hypertension Qualified Code(s): I10 - Essential (primary) hypertension (8) Coronary artery disease Status: Chronic Qualifiers: Coronary Disease-Associated Artery/Lesion type: unspecified vessel or lesion type [place] vs. transplanted heart: unspecified whether [place] or transplanted heart Associated angina: angina presence unspecified Qualified Code(s): I25.10 - Atherosclerotic heart disease of [place] coronary artery without angina pectoris (9) Abdominal pain Status: Acute Qualifiers: Abdominal location: lower abdomen, unspecified Qualified Code(s): R10.30 - Lower abdominal pain, unspecified (10) Chronic obstructive pulmonary disease (COPD) Status: Chronic Qualifiers: COPD type: unspecified COPD Qualified Code(s): J44.9 - Chronic obstructive pulmonary disease, unspecified (11) VIC (obstructive sleep apnea) Status: Chronic (12) Anxiety and depression Status: Chronic History of Present Illness Date of Admission: 12/30/17 Chief Complaint: LQ, R>L Abdominal pain, nausea The patient is a 47 y/o M w/ PMHx: Anxiety and Depression, COPD, VIC, CAD s/p CABG, HTN, HLD, ESRD secondary to VU Reflux s/p Renal Transplant x 2 (Most recent DULR 8 years prior), CKD stage III (baseline Cr 1.8-2.0) following w/ Dr. Khan [facility], AOCD (Hgb 11-12), Chronic Thrombocytopenia (Plts 110-130) recently transferred on 12/27/17 from [facility] following unsuccessful cardiac catheterization attempts who now re-presents to the [facility] ED on 12/30/17 with noted onset since 2nd cardiac catheterization (BL at [facility]) BL LQ abdominal discomfort and groin discomfort, R>L with nausea without emesis. He noted last BM the day prior and normal appearing for him. He reports poor appetite. In the ED work-up included T 98, HR 66, BP 117/62, RR 18, 98% on RA, CBC w/ WBC 7.7, Hgb 12.1, Plts 125 without marked L shift, CMP w/ BUN/Cr 27/1.54, Alk phos 129, UA unremarkable, CT A/P without oral or IV contrast with no acute findings and visualized appendix noted to be normal appearing. In the ED patient administered NS, zofran, IV dilaudid. Past Medical History Past Medical History (Chronic Problems): Chronic Problems Chronic kidney disease, stage 3 (Chronic) Renal transplant recipient (Chronic) Immunosuppressed status (Chronic) History of heart bypass surgery (Chronic) Aortic insufficiency (Chronic) Hypercholesterolemia (Chronic) Hypertension (Chronic) Chronic obstructive pulmonary disease (COPD) (Chronic) VIC (obstructive sleep apnea) (Chronic) Anxiety and depression (Chronic) Hypertension (Chronic) Coronary artery disease (Chronic) History of renal transplant (Chronic) Allergies acetaminophen [From Darvocet-N] Allergy (Verified 12/30/17 10:59) Hives propoxyphene napsylate [From Darvocet-N] Allergy (Verified 12/30/17 10:59) Hives venom-honey bee [bee venom (honey bee)] Allergy (Verified 12/30/17 10:59) Hives Home Medications: Ambulatory Orders Medication Instructions Recorded Aspirin [Aspirin, Baby] 81 mg PO DAILY 02/21/14 Doxazosin Mesylate [Cardura] 8 mg PO QHS 02/21/14 Mycophenolate Mofetil [Cellcept] 250 mg PO BID 02/21/14 Omeprazole [Prilosec] 20 mg PO DAILY 02/21/14 Sulfamethoxazole/Trimethoprim 1 tablet PO DAILY 02/21/14 [Bactrim 400-80 mg Tablet] Tacrolimus Anhydrous [Prograf] 0.5 mg PO BID 02/21/14 predniSONE tablet 7.5 mg PO DAILY 02/21/14 Magnesium Oxide [Mgo] 400 mg PO BID 12/25/17 Umeclidinium Brm/Vilanterol Tr 1 puff INHALATION QHS 12/25/17 [Anoro Ellipta 62.5-25 Mcg INH] Amlodipine [Norvasc] 5 mg PO DAILY 12/30/17 Atorvastatin Calcium 80 mg PO QHS 12/30/17 Carvedilol [Carvedilol] 25 mg PO BID 12/30/17 Nitroglycerin [Nitrostat] 0.4 mg SL 4X/DAY PRN PRN 12/30/17 Surgical History: coronary bypass surgery, - - Renal transplantation x 2, bladder surgery, pericardial window secondary to renal failure. Psychiatric History: Anxiety, Depression Lives: Spouse/ Significant Other Smoking Status: Former smoker Tobacco Use: Non-smoker Alcohol: Rare Drugs: None - *Family History Maternal History Items: No pertinent history Paternal History Items: No pertinent history Review of Systems Constitutional: Reports: Anorexia, Malaise, Weakness, Fatigue. Denies: Chills, Fever, Weight Change HEENT: Denies: Head Aches, Sinus Congestion, Sinus Drainage Cardiovascular: Denies: Chest Pain, Palpitations Respiratory: Denies: Cough, Shortness of breath at rest, Sputum production Gastrointestinal: Reports: Abdominal Pain, Nausea. Denies: Vomiting Genitourinary: Denies: Dysuria Musculoskeletal: Denies: Joint Pain, Joint Tenderness Skin: Denies: Rash, Wounds Neurological: Denies: Numbness, Tingling, Focal weakness Psychiatric: Reports: Anxiety, Depression. Denies: Homicidal Ideations, Suicidal Ideations Hematologic/ Lymphatic: Reports: Anemia, Easy Bruising, Easy Bleeding VTE Information - Inpt Only VTE Present on Admission: No VTE Mechan Device Prophylaxis: SCD's VTE Pharm Prophylaxis ordered?: Yes Patient Problems: Active and Suspected Problems Abdominal pain (Acute) Subjective: Seated upright in the ED bed, fatigued appearance. Objective: Physical Examination: General: awake, alert, oriented x 3 and cooperative, seated upright in the ED bed in no apparent distress. Skin: normal color, turgor, no icterus, cyanosis. HEENT: AT/NC, EOMI, PERRLA, mildly dry MM, no carotid bruits or JVD noted. Lungs: CTA bilaterally, moderate effort, mild decrease BL bases, no rales, ronchi or wheezing. Heart: Regular rate and rhythm; no gallop, rub audible. Abdomen: soft, notable TTP R>L, RLQ with guarding and rebound TTP, BL inguinal regions with some TTP but not severe, mildly hypoactive BS, no HSM but difficult to assess given acute pain, abdominal scars s/p TXP. Extremities: no cyanosis, clubbing, or edema. Neurological: patient awake, alert, oriented x 3; cognitive function intact; pupils equally reactive to light and accomodation; cranial nerves II-XII grossly normal, moving all 4 extremities, no focal deficits, strength moderately to severely globally decreased secondary to acute presentation. Psychiatric: affect appears fatigued, no acute evidence of depressive or anxiety feelings. - Physical Exam Vital Signs Temp Pulse Resp BP Pulse Ox 98.0 F 61 14 95/60 97 12/30/17 10:57 12/30/17 15:49 12/30/17 15:49 12/30/17 15:49 12/30/17 15:49 Assessment/Plan Active and Suspected Problems Abdominal pain (Acute) The patient is a 47 y/o M w/ PMHx: Anxiety and Depression, COPD, VIC, CAD s/p CABG, HTN, HLD, ESRD secondary to VU Reflux s/p Renal Transplant x 2, CKD stage III following w/ Dr. Bill Farrar, AOCD, Chronic Thrombocytopenia recently transferred on 12/27/17 from [facility] following unsuccessful cardiac catheterization attempts who now re-presents to the [facility] ED on 12/30/17 with noted onset since 2nd cardiac catheterization (BL at [facility]) BL LQ abdominal discomfort and groin discomfort, R>L with nausea without emesis. (1) BL LQ, R>L Abdominal Pain: Unclear specific etiology, possibly ileus, BL US groin without incident aneurysm or pseudoaneurysm, CT scan of the abdomen without IV or oral contrast with no acute finding and visualized appendix was unremarkable, afebrile with unremarkable CBC also. Will admit to MS, maintain on IVFs, NPO status expect sip with medications, antiemetic, PRN pain regimen, pending Surgery consultation to assure no need for oral contrast CT to more aggressive visualize appendix given examination. Bowel regimen. (2) ESRD secondary to VU Reflux: Patient s/p Renal Transplant x 2, most recent DULR 8 years prior, following w/ Dr. Bill Farrar. Maintain on home regimen cellcept, prograf, prophylatic bactrim and prednisone therapy. (3) CKD stage III: Admission BUN/Cr , baseline Cr 1.8-2.0, following cade/ Dr. Bill Farrar, trend. (4) CAD s/p CABG: Maintain on asa, plavix, metoprolol, ? unclear if on statin therapy, not on prior but noted CAD history, recent cardiac catheterization [facility] with no PCI performed, noted collaterals present. (5) Hypertension: Continue home regimen including coreg, norvasc, PRN hydralazine. (6) Hyperlipidemia: Not on statin, unclear why not, awaiting med rec from [facility]. (7) Chronic COPD: ATC duonebs, PRN albuterol, HOB, IS parameters. (8) Anxiety and Depression: Regimen not listed, prior admission w/ BZD, encourage routine PCP evaluation and monitoring. (9) Chronic Thrombocytopenia: Admission Plts 125, baseline Plts 110-130, stable. (10) AOCD: Admission Hgb 12.1, baseline Hgb 11-12, stable. (11) VIC: CPAP q HS. (12) DVT Prophylaxis: SCDs, heparin. Code Visit OBSV E&M: 16532 Initial observation care L3
[2017-12-30 16:36] VITALS: BMI 24.1
--- NOTE | 2017-12-30 16:36 | HP.PCM_ITS ---
Problem List (1) Chronic kidney disease, stage 3 Status: Chronic (2) Renal transplant recipient Status: Chronic (3) Immunosuppressed status Status: Chronic (4) History of heart bypass surgery Status: Chronic (5) Aortic insufficiency Status: Chronic Qualifiers: Cardiac valve disease etiology: etiology unspecified Qualified Code(s): I35.1 - Nonrheumatic aortic (valve) insufficiency (6) Hypercholesterolemia Status: Chronic (7) Hypertension Status: Chronic Qualifiers: Hypertension type: essential hypertension Qualified Code(s): I10 - Essential (primary) hypertension (8) Coronary artery disease Status: Chronic Qualifiers: Coronary Disease-Associated Artery/Lesion type: unspecified vessel or lesion type [place] vs. transplanted heart: unspecified whether [place] or transplanted heart Associated angina: angina presence unspecified Qualified Code(s): I25.10 - Atherosclerotic heart disease of [place] coronary artery without angina pectoris (9) Abdominal pain Status: Acute Qualifiers: Abdominal location: lower abdomen, unspecified Qualified Code(s): R10.30 - Lower abdominal pain, unspecified (10) Chronic obstructive pulmonary disease (COPD) Status: Chronic Qualifiers: COPD type: unspecified COPD Qualified Code(s): J44.9 - Chronic obstructive pulmonary disease, unspecified (11) VIC (obstructive sleep apnea) Status: Chronic (12) Anxiety and depression Status: Chronic History of Present Illness Date of Admission: 12/30/17 Chief Complaint: LQ, R>L Abdominal pain, nausea The patient is a 47 y/o M w/ PMHx: Anxiety and Depression, COPD, VIC, CAD s/p CABG, HTN, HLD, ESRD secondary to VU Reflux s/p Renal Transplant x 2 (Most recent DULR 8 years prior), CKD stage III (baseline Cr 1.8-2.0) following w/ Dr. Khan [facility], AOCD (Hgb 11-12), Chronic Thrombocytopenia (Plts 110-130 ) recently transferred on 12/27/17 from [facility] following unsuccessful cardiac catheterization attempts who now re-presents to the [facility] ED on 12/30/17 with noted onset since 2nd cardiac catheterization (BL at [facility]) BL LQ abdominal discomfort and groin discomfort, R>L with nausea without emesis. He noted last BM the day prior and normal appearing for him. He reports poor appetite. In the ED work-up included T 98, HR 66, BP 117/62, RR 18, 98% on RA, CBC w/ WBC 7.7, Hgb 12.1, Plts 125 without marked L shift, CMP w/ BUN/Cr 27/1.54 , Alk phos 129, UA unremarkable, CT A/P without oral or IV contrast with no acute findings and visualized appendix noted to be normal appearing. In the ED patient administered NS, zofran, IV dilaudid. Past Medical History Past Medical History (Chronic Problems): Chronic Problems Chronic kidney disease, stage 3 (Chronic) Renal transplant recipient (Chronic) Immunosuppressed status (Chronic) History of heart bypass surgery (Chronic) Aortic insufficiency (Chronic) Hypercholesterolemia (Chronic) Hypertension (Chronic) Chronic obstructive pulmonary disease (COPD) (Chronic) VIC (obstructive sleep apnea) (Chronic) Anxiety and depression (Chronic) Hypertension (Chronic) Coronary artery disease (Chronic) History of renal transplant (Chronic) Allergies acetaminophen [From Darvocet-N] Allergy (Verified 12/30/17 10:59) Hives propoxyphene napsylate [From Darvocet-N] Allergy (Verified 12/30/17 10:59) Hives venom-honey bee [bee venom (honey bee)] Allergy (Verified 12/30/17 10:59) Hives Home Medications: Ambulatory Orders Medication Instructions Recorded Aspirin [Aspirin, Baby] 81 mg PO DAILY 02/21/14 Doxazosin Mesylate [Cardura] 8 mg PO QHS 02/21/14 Mycophenolate Mofetil [Cellcept] 250 mg PO BID 02/21/14 Omeprazole [Prilosec] 20 mg PO DAILY 02/21/14 Sulfamethoxazole/Trimethoprim 1 tablet PO DAILY 02/21/14 [Bactrim 400-80 mg Tablet] Tacrolimus Anhydrous [Prograf] 0.5 mg PO BID 02/21/14 predniSONE tablet 7.5 mg PO DAILY 02/21/14 Magnesium Oxide [Mgo] 400 mg PO BID 12/25/17 Umeclidinium Brm/Vilanterol Tr 1 puff INHALATION QHS 12/25/17 [Anoro Ellipta 62.5-25 Mcg INH] Amlodipine [Norvasc] 5 mg PO DAILY 12/30/17 Atorvastatin Calcium 80 mg PO QHS 12/30/17 Carvedilol [Carvedilol] 25 mg PO BID 12/30/17 Nitroglycerin [Nitrostat] 0.4 mg SL 4X/DAY PRN PRN 12/30/17 Surgical History: coronary bypass surgery, - - Renal transplantation x 2, bladder surgery, pericardial window secondary to renal failure. Psychiatric History: Anxiety, Depression Lives: Spouse/ Significant Other Smoking Status: Former smoker Tobacco Use: Non-smoker Alcohol: Rare Drugs: None - *Family History Maternal History Items: No pertinent history Paternal History Items: No pertinent history Review of Systems Constitutional: Reports: Anorexia, Malaise, Weakness, Fatigue. Denies: Chills, Fever, Weight Change HEENT: Denies: Head Aches, Sinus Congestion, Sinus Drainage Cardiovascular: Denies: Chest Pain, Palpitations Respiratory: Denies: Cough, Shortness of breath at rest, Sputum production Gastrointestinal: Reports: Abdominal Pain, Nausea. Denies: Vomiting Genitourinary: Denies: Dysuria Musculoskeletal: Denies: Joint Pain, Joint Tenderness Skin: Denies: Rash, Wounds Neurological: Denies: Numbness, Tingling, Focal weakness Psychiatric: Reports: Anxiety, Depression. Denies: Homicidal Ideations, Suicidal Ideations Hematologic/ Lymphatic: Reports: Anemia, Easy Bruising, Easy Bleeding VTE Information - Inpt Only VTE Present on Admission: No VTE Mechan Device Prophylaxis: SCD's VTE Pharm Prophylaxis ordered?: Yes Patient Problems: Active and Suspected Problems Abdominal pain (Acute) Subjective: Seated upright in the ED bed, fatigued appearance. Objective: Physical Examination: General: awake, alert, oriented x 3 and cooperative, seated upright in the ED bed in no apparent distress. Skin: normal color, turgor, no icterus, cyanosis. HEENT: AT/NC, EOMI, PERRLA, mildly dry MM, no carotid bruits or JVD noted. Lungs: CTA bilaterally, moderate effort, mild decrease BL bases, no rales, ronchi or wheezing. Heart: Regular rate and rhythm; no gallop, rub audible. Abdomen: soft, notable TTP R>L, RLQ with guarding and rebound TTP, BL inguinal regions with some TTP but not severe, mildly hypoactive BS, no HSM but difficult to assess given acute pain, abdominal scars s/p TXP. Extremities: no cyanosis, clubbing, or edema. Neurological: patient awake, alert, oriented x 3; cognitive function intact; pupils equally reactive to light and accomodation; cranial nerves II-XII grossly normal, moving all 4 extremities, no focal deficits, strength moderately to severely globally decreased secondary to acute presentation. Psychiatric: affect appears fatigued, no acute evidence of depressive or anxiety feelings. - Physical Exam Vital Signs Temp Pulse Resp BP Pulse Ox 98.0 F 61 14 95/60 97 12/30/17 10:57 12/30/17 15:49 12/30/17 15:49 12/30/17 15:49 12/30/17 15:49 Assessment/Plan Active and Suspected Problems Abdominal pain (Acute) The patient is a 47 y/o M w/ PMHx: Anxiety and Depression, COPD, VIC, CAD s/p CABG, HTN, HLD, ESRD secondary to VU Reflux s/p Renal Transplant x 2, CKD stage III following w/ Dr. Bill Farrar, AOCD, Chronic Thrombocytopenia recently transferred on 12/27/17 from [facility] following unsuccessful cardiac catheterization attempts who now re-presents to the [facility] ED on 12/30/17 with noted onset since 2nd cardiac catheterization (BL at [facility]) BL LQ abdominal discomfort and groin discomfort, R>L with nausea without emesis. (1) BL LQ, R>L Abdominal Pain: Unclear specific etiology, possibly ileus, BL US groin without incident aneurysm or pseudoaneurysm, CT scan of the abdomen without IV or oral contrast with no acute finding and visualized appendix was unremarkable, afebrile with unremarkable CBC also. Will admit to MS, maintain on IVFs, NPO status expect sip with medications, antiemetic, PRN pain regimen, pending Surgery consultation to assure no need for oral contrast CT to more aggressive visualize appendix given examination. Bowel regimen. (2) ESRD secondary to VU Reflux: Patient s/p Renal Transplant x 2, most recent DULR 8 years prior, following w/ Dr. Bill Farrar. Maintain on home regimen cellcept, prograf, prophylatic bactrim and prednisone therapy. (3) CKD stage III: Admission BUN/Cr , baseline Cr 1.8-2.0, following cade/ Dr. Bill Farrar, trend. (4) CAD s/p CABG: Maintain on asa, plavix, metoprolol, ? unclear if on statin therapy, not on prior but noted CAD history, recent cardiac catheterization [facility] with no PCI performed, noted collaterals present. (5) Hypertension: Continue home regimen including coreg, norvasc, PRN hydralazine. (6) Hyperlipidemia: Not on statin, unclear why not, awaiting med rec from [facility]. (7) Chronic COPD: ATC duonebs, PRN albuterol, HOB, IS parameters. (8) Anxiety and Depression: Regimen not listed, prior admission w/ BZD, encourage routine PCP evaluation and monitoring. (9) Chronic Thrombocytopenia: Admission Plts 125, baseline Plts 110-130, stable. (10) AOCD: Admission Hgb 12.1, baseline Hgb 11-12, stable. (11) VIC: CPAP q HS. (12) DVT Prophylaxis: SCDs, heparin. Code Visit OBSV E&M: 62652 Initial observation care L3
[2017-12-30 16:37] VITALS: BP 118/71; PULSE 60; RESP 18; TEMP 36.4; O2SAT 95
[2017-12-30 16:42] LABS: Magnesium 1.6 mg/dL (1.6-2.6)
--- NOTE | 2017-12-30 17:01 | PCM.CONS.GEN ---
Reason for Consult Date of Consultation: 12/31/17 Reason for Consultation: rlq pain ?appendicitis History of Present Illness: The patient is a 47 year old M presented to ER with bilateral lower abdominal pain and now more right sided, 03/16. Pt previously had CP and had an attempted heart cath in right groin and transferred to [facility] for a cath accessed from left groin- d/c from hospital on Saturday. Pt reports abdominal pain starting early saturday AM, denies n/v/f, + chill early this AM but none currently. Pt has PMH for renal transplant -located in [facility]. transplant was in RLQ, DM, HTN. He report BM QOD and states he had a normal BM yesterday and doesn't feel constipated. CT a/p done in ER show constipation, ?sb ileus due to constipation, normal appendix. Pt WBC is normal but he is also on immunosuppression drugs for his transplant. Pt states he is hungry, but last really ate Sat after leaving the hospital for a meal otherwise has just had crackers. Past Medical History Past Medical History (Chronic Problems): Chronic Problems Chronic kidney disease, stage 3 (Chronic) Renal transplant recipient (Chronic) Immunosuppressed status (Chronic) History of heart bypass surgery (Chronic) Aortic insufficiency (Chronic) Hypercholesterolemia (Chronic) Hypertension (Chronic) Chronic obstructive pulmonary disease (COPD) (Chronic) VIC (obstructive sleep apnea) (Chronic) Anxiety and depression (Chronic) Hypertension (Chronic) Coronary artery disease (Chronic) History of renal transplant (Chronic) Allergies acetaminophen [From Darvocet-N] Allergy (Verified 12/30/17 10:59) Hives propoxyphene napsylate [From Darvocet-N] Allergy (Verified 12/30/17 10:59) Hives venom-honey bee [bee venom (honey bee)] Allergy (Verified 12/30/17 10:59) Hives Home Medications: Ambulatory Orders Medication Instructions Recorded Aspirin [Aspirin, Baby] 81 mg PO DAILY 02/21/14 Doxazosin Mesylate [Cardura] 8 mg PO QHS 02/21/14 Mycophenolate Mofetil [Cellcept] 250 mg PO BID 02/21/14 Omeprazole [Prilosec] 20 mg PO DAILY 02/21/14 Sulfamethoxazole/Trimethoprim 1 tablet PO DAILY 02/21/14 [Bactrim 400-80 mg Tablet] Tacrolimus Anhydrous [Prograf] 0.5 mg PO BID 02/21/14 predniSONE tablet 7.5 mg PO DAILY 02/21/14 Magnesium Oxide [Mgo] 400 mg PO BID 12/25/17 Umeclidinium Brm/Vilanterol Tr 1 puff INHALATION QHS 12/25/17 [Anoro Ellipta 62.5-25 Mcg INH] Amlodipine [Norvasc] 5 mg PO DAILY 12/30/17 Atorvastatin Calcium 80 mg PO QHS 12/30/17 Carvedilol [Carvedilol] 25 mg PO BID 12/30/17 Nitroglycerin [Nitrostat] 0.4 mg SL 4X/DAY PRN PRN 12/30/17 Surgical History: coronary bypass surgery, - - Renal transplantation x 2, bladder surgery, pericardial window secondary to renal failure. Psychiatric History: Anxiety, Depression Lives: Spouse/ Significant Other Smoking Status: Former smoker Tobacco Use: Non-smoker Alcohol: Rare Drugs: None - *Family History Maternal History Items: No pertinent history Paternal History Items: No pertinent history Review of Systems Constitutional: Denies: Anorexia, Fever Eyes: Denies: Blurred vision HEENT: Denies: Difficulty Swallowing Cardiovascular: Denies: Chest Pain Respiratory: Denies: Shortness of Breath Gastrointestinal: Reports: Abdominal Pain. Denies: Constipation Genitourinary: Denies: Dysuria Musculoskeletal: Reports: - - Bilateral elbow and right shoulder and bilateral hand pain Skin: Denies: Rash Neurological: Denies: Incoordination, Numbness, Tingling Psychiatric: Denies: Depression Hematologic/ Lymphatic: Reports: Easy Bruising, Easy Bleeding Patient Problems: Active and Suspected Problems Abdominal pain (Acute) - Physical Exam General: Alert, Oriented x3, Cooperative, No apparent distress HEENT: Atraumatic, Normocephalic Lungs: Normal air movement Cardiovascular: Regular rate Abdomen: Soft, Non-Distended, Passing Flatus, Tender - RLQ, - - no guarding/rebound Extremities: No clubbing, No cyanosis Skin: No rashes Neurological: Cranial nerves II-XII grossly intact Psych/Mental Status: Normal Affect Vital Signs Temp Pulse Resp BP Pulse Ox 97.6 F L 60 18 118/71 95 12/30/17 16:37 12/30/17 16:37 12/30/17 16:37 12/30/17 16:37 12/30/17 16:37 Oxygen Delivery Method Room Air Weight: 145 lb 1.027 oz Body Mass Index (BMI) 24.1 Assessment/Plan Active and Suspected Problems Abdominal pain (Acute) 47-year-old male with right-sided abdominal pain, history of renal transplant, CABG and recent cardiac cath. 1. Patient CT abdomen pelvis did show constipation as well as a normal-appearing appendix. However on exam patient did have right-sided lower abdominal pain which he states initially on Saturday was bilateral lower abdominal pain which is moved more towards the right side. Patient states he is hungry, and then he states he does not have much appetite. I was able to visualize the normal appendix on the CT abdomen pelvis think that his pain may be due to constipation and would recommend a bowel regimen at this time. Did discuss with patient he was agreeable with plan and also d/w Dr. Bartlett. If miralax does have results, pt may need magnesium citrate as he has refused enemas. Ora Dick M.D. Pager: [phone] [facility] [address] [place] [address], [address] [place] [id number] Office: [phone] Code Visit Inpatient E&M: 74705 Init Hosp L1
--- NOTE | 2017-12-30 17:04 | CON.PCM_ITS ---
Reason for Consult Date of Consultation: 12/31/17 Reason for Consultation: rlq pain ?appendicitis History of Present Illness: The patient is a 47 year old M presented to ER with bilateral lower abdominal pain and now more right sided, 03/16. Pt previously had CP and had an attempted heart cath in right groin and transferred to [facility] for a cath accessed from left groin- d/c from hospital on Saturday. Pt reports abdominal pain starting early saturday AM, denies n/v/f, + chill early this AM but none currently. Pt has PMH for renal transplant -located in [facility]. transplant was in RLQ, DM, HTN. He report BM QOD and states he had a normal BM yesterday and doesn't feel constipated. CT a/p done in ER show constipation, ?sb ileus due to constipation, normal appendix. Pt WBC is normal but he is also on immunosuppression drugs for his transplant. Pt states he is hungry, but last really ate Sat after leaving the hospital for a meal otherwise has just had crackers. Past Medical History Past Medical History (Chronic Problems): Chronic Problems Chronic kidney disease, stage 3 (Chronic) Renal transplant recipient (Chronic) Immunosuppressed status (Chronic) History of heart bypass surgery (Chronic) Aortic insufficiency (Chronic) Hypercholesterolemia (Chronic) Hypertension (Chronic) Chronic obstructive pulmonary disease (COPD) (Chronic) VIC (obstructive sleep apnea) (Chronic) Anxiety and depression (Chronic) Hypertension (Chronic) Coronary artery disease (Chronic) History of renal transplant (Chronic) Allergies acetaminophen [From Darvocet-N] Allergy (Verified 12/30/17 10:59) Hives propoxyphene napsylate [From Darvocet-N] Allergy (Verified 12/30/17 10:59) Hives venom-honey bee [bee venom (honey bee)] Allergy (Verified 12/30/17 10:59) Hives Home Medications: Ambulatory Orders Medication Instructions Recorded Aspirin [Aspirin, Baby] 81 mg PO DAILY 02/21/14 Doxazosin Mesylate [Cardura] 8 mg PO QHS 02/21/14 Mycophenolate Mofetil [Cellcept] 250 mg PO BID 02/21/14 Omeprazole [Prilosec] 20 mg PO DAILY 02/21/14 Sulfamethoxazole/Trimethoprim 1 tablet PO DAILY 02/21/14 [Bactrim 400-80 mg Tablet] Tacrolimus Anhydrous [Prograf] 0.5 mg PO BID 02/21/14 predniSONE tablet 7.5 mg PO DAILY 02/21/14 Magnesium Oxide [Mgo] 400 mg PO BID 12/25/17 Umeclidinium Brm/Vilanterol Tr 1 puff INHALATION QHS 12/25/17 [Anoro Ellipta 62.5-25 Mcg INH] Amlodipine [Norvasc] 5 mg PO DAILY 12/30/17 Atorvastatin Calcium 80 mg PO QHS 12/30/17 Carvedilol [Carvedilol] 25 mg PO BID 12/30/17 Nitroglycerin [Nitrostat] 0.4 mg SL 4X/DAY PRN PRN 12/30/17 Surgical History: coronary bypass surgery, - - Renal transplantation x 2, bladder surgery, pericardial window secondary to renal failure. Psychiatric History: Anxiety, Depression Lives: Spouse/ Significant Other Smoking Status: Former smoker Tobacco Use: Non-smoker Alcohol: Rare Drugs: None - *Family History Maternal History Items: No pertinent history Paternal History Items: No pertinent history Review of Systems Constitutional: Denies: Anorexia, Fever Eyes: Denies: Blurred vision HEENT: Denies: Difficulty Swallowing Cardiovascular: Denies: Chest Pain Respiratory: Denies: Shortness of Breath Gastrointestinal: Reports: Abdominal Pain. Denies: Constipation Genitourinary: Denies: Dysuria Musculoskeletal: Reports: - - Bilateral elbow and right shoulder and bilateral hand pain Skin: Denies: Rash Neurological: Denies: Incoordination, Numbness, Tingling Psychiatric: Denies: Depression Hematologic/ Lymphatic: Reports: Easy Bruising, Easy Bleeding Patient Problems: Active and Suspected Problems Abdominal pain (Acute) - Physical Exam General: Alert, Oriented x3, Cooperative, No apparent distress HEENT: Atraumatic, Normocephalic Lungs: Normal air movement Cardiovascular: Regular rate Abdomen: Soft, Non-Distended, Passing Flatus, Tender - RLQ, - - no guarding/ rebound Extremities: No clubbing, No cyanosis Skin: No rashes Neurological: Cranial nerves II-XII grossly intact Psych/Mental Status: Normal Affect Vital Signs Temp Pulse Resp BP Pulse Ox 97.6 F L 60 18 118/71 95 12/30/17 16:37 12/30/17 16:37 12/30/17 16:37 12/30/17 16:37 12/30/17 16:37 Oxygen Delivery Method Room Air Weight: 145 lb 1.027 oz Body Mass Index (BMI) 24.1 Assessment/Plan Active and Suspected Problems Abdominal pain (Acute) 47-year-old male with right-sided abdominal pain, history of renal transplant, CABG and recent cardiac cath. 1. Patient CT abdomen pelvis did show constipation as well as a normal- appearing appendix. However on exam patient did have right-sided lower abdominal pain which he states initially on Saturday was bilateral lower abdominal pain which is moved more towards the right side. Patient states he is hungry, and then he states he does not have much appetite. I was able to visualize the normal appendix on the CT abdomen pelvis think that his pain may be due to constipation and would recommend a bowel regimen at this time. Did discuss with patient he was agreeable with plan and also d/w Dr. Bartlett. If miralax does have results, pt may need magnesium citrate as he has refused enemas. Ora Dick M.D. Pager: [phone] [facility] [address] [place] [address], [address] [place] [id number] Office: [phone] Code Visit Inpatient E&M: 21547 Init Hosp L1
[2017-12-30] MEDS: Psyllium 1 PACKET PO (17:22)
[2017-12-30] MEDS: Senna/Docusate Sodium 1 Tablet 2 TABLET PO ×2 (17:23→22:34)
[2017-12-30] MEDS: oxyCODONE 5 MG Tablet PO ×2 (17:23→22:33)
[2017-12-30] MEDS: 0.9% Normal Saline 1,000 ML 125 ML IV (17:31)
[2017-12-30] MEDS: Bisacodyl 5 MG Tablet 10 MG PO (17:31)
[2017-12-30] MEDS: 0.9% NaCl Peripheral Flush Adult/Peds IV (18:51)
[2017-12-30] MEDS: Morphine 2 MG/ML Syringe IV (18:51)
[2017-12-30 19:50] VITALS: PULSE 59; RESP 16; O2SAT 98
[2017-12-30] MEDS: Ipratropium/Albuterol Sulfate 3 ML AMPUL.NEB INHALATION (19:50)
[2017-12-30 22:20] VITALS: BP 108/49; PULSE 53; RESP 16; TEMP 36.5; O2SAT 96
[2017-12-30] MEDS: Doxazosin 4 MG Tablet 8 MG PO (22:33)
[2017-12-30] MEDS: Magnesium Oxide 400 MG Tablet PO (22:33)
[2017-12-30] MEDS: Famotidine 20 MG Tablet PO (22:33)
[2017-12-30] MEDS: Atorvastatin Calcium 80 MG Tablet PO (22:34)
[2017-12-30] MEDS: Carvedilol 25 MG Tablet PO (22:34)
[2017-12-30] MEDS: Mycophenolate Mofetil 250 MG Capsule PO (22:34)
--- NOTE | 2017-12-30 23:28 | CPS ---
Pt does not use CPAP at home and refuses CPAP at this time.
[2017-12-31] VITALS (7 sets, daily range): BP systolic 108–138; BP diastolic 53–70; PULSE 58–72; RESP 14–18; TEMP 36.4–37.1; O2SAT 96–99
[2017-12-31] MEDS: 0.9% Normal Saline 1,000 ML 125 ML IV ×3 (01:24→17:29)
[2017-12-31] MEDS: oxyCODONE 5 MG Tablet PO ×4 (05:16→22:54)
[2017-12-31 06:01] LABS: Absolute Lymphocyte Count 0.65 X10^3/ul (0.83-4.51); Absolute Neutrophil Count 4.9 X10^3/uL (2.0-7.7); Eosinophil# 0.07 X10^3/uL; Eosinophils% 1.1 % (0-5); Hematocrit 35.4 % (40-54); Hemoglobin 11.3 g/dl (13.0-16.5); Lymphocyte # 0.65 X10^3/ul (4.0); Lymphocyte % 10.3 % (19-41); Mean Corp Hgb Conc 31.9 g/gl (32-36); Mean Corpuscular Hgb 30.3 pg (27.0-32.0); Mean Corpuscular Volume 94.9 fL (80-94); Mean Platelet Vol. 9.7 fl (6.2-12.0); Monocyte# 0.68 X10^3/uL; Monocyte% 10.7 % (0-10); Neutrophil # 4.92 X10^3/uL (2.7-7.7); Neutrophil % 77.6 % (47-70); Platelet Count 107 K/mm3 (150-450); RBC Distribution Width SD 48.4 fl (35.1-43.9); Red Blood Count 3.73 M/mm3 (4.6-6.2); White Blood Count 6.3 K/mm3 (4.4-11.0)
[2017-12-31 06:10] LABS: Anion Gap 5 (5-15); BUN 26 mg/dL (7-18); BUN/Creat Ratio 19.3 RATIO (10-20); Chloride 104 mmol/L (98-107); Creatinine, Serum 1.35 mg/dL (0.70-1.30); EST Glomerular Filtration Rate 60 mL/min (>60); Est Glom Filt Rate - Afr Amer 72 mL/min (>60); Estimated Creatinine Clearance 58.21 ml/min; Glucose 74 mg/dL (74-106); Potassium 5.5 mmol/L (3.5-5.1); Sodium Level 136 mmol/L (136-145)
[2017-12-31 06:20] LABS: POSITIVE COUNT NO; POSITIVE DIFFERENTIAL NO; POSITIVE MORPHOLOGY NO
[2017-12-31] MEDS: Magnesium Hydroxide 30 ML UDC PO (06:54)
[2017-12-31] MEDS: Ipratropium/Albuterol Sulfate 3 ML AMPUL.NEB INHALATION ×3 (07:03→18:49)
[2017-12-31] MEDS: Famotidine 20 MG Tablet PO ×2 (08:30→21:27)
[2017-12-31] MEDS: Smz/Tmp Ds Tablet 0.5 TABLET PO (08:30)
[2017-12-31] MEDS: predniSONE 5 MG Tablet 7.5 MG PO (08:31)
[2017-12-31] MEDS: Aspirin 81 MG TAB.CHEW PO (08:31)
[2017-12-31] MEDS: Magnesium Oxide 400 MG Tablet PO ×2 (08:31→21:27)
[2017-12-31] MEDS: Senna/Docusate Sodium 1 Tablet 2 TABLET PO ×2 (08:32→21:28)
[2017-12-31] MEDS: Carvedilol 25 MG Tablet PO ×2 (08:32→21:27)
[2017-12-31] MEDS: amLODIPine 5 MG Tablet PO (08:33)
[2017-12-31] MEDS: Mycophenolate Mofetil 250 MG Capsule PO ×2 (08:33→21:27)
[2017-12-31] MEDS: Bisacodyl 5 MG Tablet 10 MG PO (08:33)
[2017-12-31] MEDS: Psyllium 1 PACKET PO (08:34)
[2017-12-31] MEDS: Bisacodyl 10 MG Suppository RECTAL (12:03)
[2017-12-31] MEDS: Ondansetron 4 MG/2 ML Vial IV (12:59)
--- NOTE | 2017-12-31 15:24 | CHAPLAIN ---
Type of Pastoral Visit _x__ Initial Visit ___ Follow-up Visit ___ On-call Visit ___ General Patient Visit ___ Spiritual Assessment ___ Family Conference ___ Bereavement ___ Rapid Response ___ Code Blue ___ Other (describe below) Pastoral Care Referral From _x__ Patient ___ Family ___ Nurse ___ Physician ___ Toy Assembler Wood ___ Sales Correspondent ___ Other (describe below) Sacrament/Intervention _x__ Active listening ___ Anointing ___ Hoahaoism ___ Bereavement ___ Communion _x__ Irina exploration ___ _x__ Life review _x__ Prayer ___ Reconciliation ___ Sacrament of Sick _x__ Supportive presence ___ Wedding ___ Other (describe below) Pastoral Comments patient shares about some anxiety concerning health and what is going to happen, about finances as he misses work and job direction; pt was seen in a previous admission and was thankful 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
[2017-12-31] MEDS: Lactulose 20 GM/30 ML UDC PO ×5 (16:18→20:35)
--- NOTE | 2017-12-31 16:33 | PCM.PROGNOTE ---
Patient Problems: Active and Suspected Problems Abdominal pain (Acute) Subjective: Was seen and examined today, he has not been able have a bowel movement despite a suppository and oral laxatives. I did a rectal exam on the patient-he does not have any stool in his rectum. I have decided to place him on lactulose, he had an episode of urinary retention this afternoon and had to be straight cathed for over 700 cc of urine. Patient will be made a full admission and evaluated again in the morning. Patient asked if he could have something to eat and I told him if he is having abdominal pain it would not be vizcarra to feed him. - Physical Exam General: Alert, Oriented x3, Cooperative, No apparent distress, Well developed, Well nourished HEENT: Atraumatic, PERRLA, EOMI, Normocephalic Oral: Moist Mucosa Neck: Supple, No JVD, No Nuchal Rigidity, Trachea Midline, Thyroid Normal Size and Texture Lungs: Clear to auscultation, Normal air movement, No rhonchi, No wheeze, No rales Cardiovascular: Regular rate, Regular Rhythm, Normal S1, Normal S2, No murmurs, No Ectopic Activity, PMI Normal, No rub noted, No Gallop Abdomen: Soft, Non Tender, Non-Distended, Hypoactive Bowel Sounds Extremities: No edema, Capillary Refill Less than 3 Seconds Skin: No rashes, No breakdown Musculoskeletal: No Tenderness to Palpation of Joints or Extremities Neurological: Cranial nerves II-XII grossly intact, Neuro grossly intact, Sensory exam intact to light touch and pain, Coordination normal Psych/Mental Status: Normal Affect, Appropriate, Alert and oriented to time, place, person, mood and affect Vital Signs Temp Pulse Resp BP Pulse Ox 98.0 F 60 18 138/53 H 96 12/31/17 15:00 12/31/17 15:00 12/31/17 15:00 12/31/17 15:00 12/31/17 15:00 Medical Necessity - Tobacco Use Smoking Status: Former smoker Tobacco Use: Non-smoker Assessment/Plan Active and Suspected Problems Abdominal pain (Acute) 1 abdominal pain secondary to constipation-I will place the patient on lactulose in an effort to have him stool, continue IV fluids at 100 cc/h #2 urinary retention-? BPH-patient is currently on Cardura, I do not know if his urinary retention was from morphine administration, patient will be monitored #3 coronary artery disease #4 chronic obstructive pulmonary disease #5 hypertension #6 chronic kidney disease stage III Code Visit Inpatient E&M: 54800 Init Hosp L2
[2017-12-31] MEDS: Atorvastatin Calcium 80 MG Tablet PO (21:27)
[2017-12-31] MEDS: Doxazosin 4 MG Tablet 8 MG PO (21:27)
[2018-01-01] VITALS (7 sets, daily range): BP systolic 107–144; BP diastolic 50–77; PULSE 60–70; RESP 14–18; TEMP 36.6–37.1; O2SAT 97–98
[2018-01-01] MEDS: Morphine 2 MG/ML Syringe IV (00:10)
[2018-01-01] MEDS: 0.9% Normal Saline 1,000 ML 125 ML IV ×3 (01:17→18:10)
[2018-01-01] MEDS: Albuterol 2.5 MG/3 ML VIAL.NEB. INHALATION (07:22)
[2018-01-01 08:04] LABS: Anion Gap 7 (5-15); BUN 25 mg/dL (7-18); BUN/Creat Ratio 17.6 RATIO (10-20); Calcium,Total 9.2 mg/dL (8.5-10.1); Chloride 105 mmol/L (98-107); Creatinine, Serum 1.42 mg/dL (0.70-1.30); EST Glomerular Filtration Rate 56 mL/min (>60); Est Glom Filt Rate - Afr Amer 68 mL/min (>60); Estimated Creatinine Clearance 55.34 ml/min; Glucose 74 mg/dL (74-106); Potassium 5.3 mmol/L (3.5-5.1); Sodium Level 136 mmol/L (136-145)
[2018-01-01] MEDS: oxyCODONE 5 MG Tablet PO ×3 (08:24→20:10)
[2018-01-01] MEDS: predniSONE 5 MG Tablet 7.5 MG PO (08:26)
[2018-01-01] MEDS: Smz/Tmp Ds Tablet 0.5 TABLET PO (08:26)
[2018-01-01] MEDS: Aspirin 81 MG TAB.CHEW PO (08:26)
--- NOTE | 2018-01-01 10:00 | CT_ITS ---
STUDY: CT ABDOMEN AND PELVIS WITHOUT IV CONTRAST REASON FOR EXAM: Male, 47 years old. Abdominal pain and hematuria. Recent attempt heart catheterization with bilateral femoral access. 2 kidney transplants. Pericardial window. Quadruple bypass. RADIATION DOSAGE (If Supplied By Facility): CTDIvol = ( 6.59 ) mGy, DLP = ( 312.73 ) mGycm TECHNIQUE: Transaxial images were obtained from the dome of the diaphragm to the symphysis pubis without oral contrast, and without intravenous contrast. Sagittal and coronal images were reconstructed. GI contrast given. Individualized dose optimization techniques were used for this CT. COMPARISON: CT abdomen/pelvis 10/20/2007. FINDINGS: The visualized lower lung bases show patchy alveolar airspace disease anterior to the major fissure within the right middle lobe, suspicious for pneumonia versus atelectasis. More consolidated triangular opacity seen in the left lower lobe posterior lateral segment anterior to a moderate calcified pleural plaque also suspicious for pneumonia with air bronchograms seen and with minimal posterior pleural fluid suggested. The visualized portions of the lower heart appear mildly enlarged. Severe triple vessel coronary calcifications noted. Mild metal artifact from numerous surgical clips are seen involving the pericardium. Moderate metal artifact from surgical clip anterior to the xiphoid noted. Visualized distal esophagus shows no large gross bulky focal lesion. Normal liver. Normal gallbladder and extrahepatic biliary system. Normal spleen. Normal pancreas. Normal bilateral adrenal glands. Normal appearing left transplant kidney noted in the left lower anterolateral pelvis without hydronephrosis or hydroureter identified. Negative kidneys absent. Normal visualized stomach without large gross bulky focal lesion identified, mostly filled with GI contrast and minimal nondependent air. Normal small intestine. Normal colon. The appendix is visualized and appears normal. Normal abdominal aorta with moderate distal calcification noted. Severe right greater than left common iliac arterial calcifications noted with possible right proximal common iliac arterial sclerosis noted. Normal inferior vena cava. Normal retroperitoneum except mild metal artifact from bilateral surgical clips noted. Normal urinary bladder noted which appears moderately filled without large gross focal bulky lesion noted. Prostate appears mildly enlarged, approximately 4.4 x 3.3 cm. No ventral/inguinal bowel herniation is seen. Tiny air collections indicating subcutaneous emphysema are seen in the periumbilical region and more left lateral soft tissues, may be from subcutaneous injections which appear mildly increased but cannot exclude subcutaneous gas forming infection without clinical exclusion. Supraumbilical subcutaneous varices are noted bilaterally, unchanged since CT study 12/30/2017. However, diffuse increase subcutaneous fascia is noted with thickened skin adjacent, may represent cellulitis. Loss of anterior height and wedging is seen T12 and L1 consistent with compression fractures, unchanged since CT study 12/30/2017. CT/Abdomen/Pel W ORAL Cont Only IMPRESSION: Left lower lobe pneumonia until proven otherwise. Minimal early pneumonia versus atelectasis right middle lobe as described. Supraumbilical bilateral subcutaneous varices, unchanged nonspecific. Mild increase infraumbilical subcutaneous emphysema and increased fascial soft tissue attenuation, may represent iatrogenic air from subcutaneous injections and cellulitis versus gas-forming infection with skin thickening. Clinical correlation recommended. Severe arteriosclerosis for patient's stated age including triple-vessel coronary arterial calcifications and severe right greater and left common iliac arterial calcification with possible right proximal iliac arterial stenosis. Left posterior calcified pleural plaque sister with asbestos exposure in the appropriate clinical setting. Mild prostatomegaly. Mild T12 and L1 compression fractures suggested, unchanged since CT 12/30/2017. Limitations above. Electronically Signed: Arnie Muse, at 14:18 EDT Tel , Service support ,
[2018-01-01] MEDS: Mycophenolate Mofetil 250 MG Capsule PO ×2 (10:43→20:29)
[2018-01-01] MEDS: Bisacodyl 5 MG Tablet 10 MG PO (10:44)
[2018-01-01] MEDS: Famotidine 20 MG Tablet PO ×2 (10:44→20:25)
[2018-01-01] MEDS: Carvedilol 25 MG Tablet PO ×2 (10:44→20:26)
[2018-01-01] MEDS: Magnesium Oxide 400 MG Tablet PO ×2 (10:45→20:26)
[2018-01-01] MEDS: amLODIPine 5 MG Tablet PO (10:45)
[2018-01-01] MEDS: Psyllium 1 PACKET PO (10:45)
[2018-01-01] MEDS: Senna/Docusate Sodium 1 Tablet 2 TABLET PO ×2 (10:45→20:28)
--- NOTE | 2018-01-01 11:04 | PCA ---
pt out walking in the medel
--- NOTE | 2018-01-01 13:03 | PCA ---
pt out walking in the medel
--- NOTE | 2018-01-01 14:32 | PCM.PN.SRG ---
Patient Problems: Active and Suspected Problems Abdominal pain (Acute) Subjective: Patient still states he has some right lower quadrant abdominal pain but it does seem to be a little better, he did have multiple bowel movements with the multiple doses of lactulose. Since patient was still having increased pain he did undergo a CT abdomen pelvis with p.o. contrast. Patient also had some urinary retention and required a Machado yesterday. - Physical Exam General: Alert, Cooperative Abdomen: Soft, Non-Distended, Tender - Mild at the right lower quadrant overlying his previous transplant incision no hernia on exam., - - No guarding or rebound Vital Signs Temp Pulse Resp BP Pulse Ox 97.8 F 68 18 110/64 98 01/01/18 02:31 01/01/18 07:24 01/01/18 09:00 01/01/18 02:31 01/01/18 07:24 Oxygen Delivery Method Room Air Intake and Output for Last 24 Hours 12/30/17 12/31/17 01/01/18 23:59 23:59 23:59 Intake Total 762 / 3117 2397 / 2397 Output Total 920 / 2670 1220 / 1220 Balance -158 / 447 1177 / 1177 Laboratory Tests Past 24 Hrs 01/01/18 07:40 Sodium 136 Potassium 5.3 H Chloride 105 Carbon Dioxide 24.0 Anion Gap 7 BUN 25 H Creatinine 1.42 H Estim Creat Clear Calc 55.34 Est GFR (MDRD) Af Amer 68 Est GFR (MDRD) Non-Af 56 L BUN/Creatinine Ratio 17.6 Glucose 74 Calcium 9.2 Medical Necessity - Tobacco Use Smoking Status: Former smoker Tobacco Use: Non-smoker Assessment/Plan Active and Suspected Problems Abdominal pain (Acute) 47-year-old male with right-sided abdominal pain-constipation, history of renal transplant, CABG and recent cardiac cath. 1. Patient CT abdomen pelvis has not been officially read. However his appendix still appears to be normal his constipation is improved and moved more towards the left colon, there are no obvious hernias her previous incision sites from his previous transplant the right lower quadrant as well. No need for any surgical intervention continue bowel regimen. Await official CT abdomen pelvis read. Ora Dick M.D. Pager: [phone] [facility] [address] [place] [address], [address] [place] [address] Office: [phone] Code Visit Inpatient E&M: 25958 Subs Hosp L1
--- NOTE | 2018-01-01 14:35 | PN.SURG_ITS ---
Patient Problems: Active and Suspected Problems Abdominal pain (Acute) Subjective: Patient still states he has some right lower quadrant abdominal pain but it does seem to be a little better, he did have multiple bowel movements with the multiple doses of lactulose. Since patient was still having increased pain he did undergo a CT abdomen pelvis with p.o. contrast. Patient also had some urinary retention and required a Machado yesterday. - Physical Exam General: Alert, Cooperative Abdomen: Soft, Non-Distended, Tender - Mild at the right lower quadrant overlying his previous transplant incision no hernia on exam., - - No guarding or rebound Vital Signs Temp Pulse Resp BP Pulse Ox 97.8 F 68 18 110/64 98 01/01/18 02:31 01/01/18 07:24 01/01/18 09:00 01/01/18 02:31 01/01/18 07:24 Oxygen Delivery Method Room Air Intake and Output for Last 24 Hours 12/30/17 12/31/17 01/01/18 23:59 23:59 23:59 Intake Total 762 / 3117 2397 / 2397 Output Total 920 / 2670 1220 / 1220 Balance -158 / 447 1177 / 1177 Laboratory Tests Past 24 Hrs 01/01/18 07:40 Sodium 136 Potassium 5.3 H Chloride 105 Carbon Dioxide 24.0 Anion Gap 7 BUN 25 H Creatinine 1.42 H Estim Creat Clear Calc 55.34 Est GFR (MDRD) Af Amer 68 Est GFR (MDRD) Non-Af 56 L BUN/Creatinine Ratio 17.6 Glucose 74 Calcium 9.2 Medical Necessity - Tobacco Use Smoking Status: Former smoker Tobacco Use: Non-smoker Assessment/Plan Active and Suspected Problems Abdominal pain (Acute) 47-year-old male with right-sided abdominal pain-constipation, history of renal transplant, CABG and recent cardiac cath. 1. Patient CT abdomen pelvis has not been officially read. However his appendix still appears to be normal his constipation is improved and moved more towards the left colon, there are no obvious hernias her previous incision sites from his previous transplant the right lower quadrant as well. No need for any surgical intervention continue bowel regimen. Await official CT abdomen pelvis read. Ora Dick M.D. Pager: [phone] [facility] [address] [place] [address], [address] [place] [address] Office: [phone] Code Visit Inpatient E&M: 84942 Subs Hosp L1
--- NOTE | 2018-01-01 14:47 | CASEMGMT ---
Readmission Assessment: Prior Admission: 11/27/17 - 11/29/17 Chest Pain with disposition transfer to [facility]. Current Admission: Abdominal Pain Patient with history of renal transplant x 2, was transferred to [facility] on 11/29 for heart cath. Patient presented to [facility] for abdominal pain on this admission. Specialist: Cardiology - Dameon Choudhury PCP verified: Atul Tate Patient has information on living will and POA, but has yet to complete it. Lives in a one story home with his . Patient drives. Patient denies use of DME, oxygen and home health services. Case management will continue to follow for effective discharge planning. DC Plan: Home.
[2018-01-01] MEDS: Lactulose 20 GM/30 ML UDC 30 GM PO ×2 (18:11→20:09)
--- NOTE | 2018-01-01 20:00 | PCM.PROGNOTE ---
Patient Problems: Active and Suspected Problems Abdominal pain (Acute) Subjective: Patient seen and examined today, he still complaining of right lower quadrant abdominal pain, I had a discussion with general surgery about his care and a CT of the abdomen and pelvis was ordered which showed stool primarily on the left side of the colon but no acute abdominal process. Patient had some blood in his Machado which was placed last night because he had urinary retention. I decided to give the patient additional lactulose today, I put the patient on Keflex due to the fact that he is taking immunosuppressants for his kidney transplants. My plan is to discontinue the Machado tomorrow morning and see how the patient does voiding. I increase the patient's diet to a full liquid diet today - Physical Exam General: Alert, Oriented x3, Cooperative, No apparent distress, Well developed HEENT: Atraumatic, PERRLA, EOMI, Normocephalic Oral: Moist Mucosa Neck: Supple, No JVD, No Nuchal Rigidity, Trachea Midline, Thyroid Normal Size and Texture Lungs: Clear to auscultation, Normal air movement, No rhonchi, No wheeze, No rales Cardiovascular: Regular rate, Regular Rhythm, Normal S1, Normal S2, No murmurs, No Ectopic Activity, PMI Normal, No rub noted, No Gallop Abdomen: Bowel Sounds Present, Soft, Non-Distended, No hernias noted Extremities: No clubbing, No cyanosis, No edema, Capillary Refill Less than 3 Seconds Skin: No rashes, No breakdown Musculoskeletal: No Tenderness to Palpation of Joints or Extremities Neurological: Cranial nerves II-XII grossly intact, Neuro grossly intact, Sensory exam intact to light touch and pain, Coordination normal Psych/Mental Status: Normal Affect, Appropriate, Alert and oriented to time, place, person, mood and affect Vital Signs Temp Pulse Resp BP Pulse Ox 98.4 F 63 18 144/69 H 97 01/01/18 15:48 01/01/18 15:48 01/01/18 15:48 01/01/18 15:48 01/01/18 15:48 Oxygen Delivery Method Room Air Intake and Output for Last 24 Hours 12/30/17 12/31/17 01/01/18 23:59 23:59 23:59 Intake Total 762 / 3117 4047 / 4047 Output Total 920 / 2670 1720 / 1720 Balance -158 / 447 2327 / 2327 Laboratory Tests Past 24 Hrs 01/01/18 07:40 Sodium 136 Potassium 5.3 H Chloride 105 Carbon Dioxide 24.0 Anion Gap 7 BUN 25 H Creatinine 1.42 H Estim Creat Clear Calc 55.34 Est GFR (MDRD) Af Amer 68 Est GFR (MDRD) Non-Af 56 L BUN/Creatinine Ratio 17.6 Glucose 74 Calcium 9.2 Medical Necessity - Tobacco Use Smoking Status: Former smoker Tobacco Use: Non-smoker Assessment/Plan Active and Suspected Problems Abdominal pain (Acute) 1 abdominal pain secondary to constipation-decided to Hep-Lock the patient, additional lactulose will be given to the patient today #2 urinary retention-? BPH-patient is currently on Cardura, his Cardura dose is 8 mg daily which is maximal dose #3 coronary artery disease #4 chronic obstructive pulmonary disease #5 hypertension #6 chronic kidney disease stage III Code Visit Inpatient E&M: 79482 Subs Hosp L2
[2018-01-01] MEDS: Atorvastatin Calcium 80 MG Tablet PO (20:26)
[2018-01-01] MEDS: Doxazosin 4 MG Tablet 8 MG PO (20:27)
[2018-01-01] MEDS: Cephalexin 500 MG Capsule PO (20:28)
[2018-01-02 02:00] VITALS: BP 113/50; PULSE 64; RESP 18; TEMP 36.7; O2SAT 96
[2018-01-02] MEDS: oxyCODONE 5 MG Tablet PO ×3 (02:10→15:22)
[2018-01-02 02:16] VITALS: PULSE 64
[2018-01-02 07:55] VITALS: O2SAT 92
[2018-01-02] MEDS: Aspirin 81 MG TAB.CHEW PO (09:19)
[2018-01-02] MEDS: amLODIPine 5 MG Tablet PO (09:19)
[2018-01-02] MEDS: Smz/Tmp Ds Tablet 0.5 TABLET PO (09:19)
[2018-01-02] MEDS: Famotidine 20 MG Tablet PO (09:20)
[2018-01-02] MEDS: Cephalexin 500 MG Capsule PO (09:20)
[2018-01-02] MEDS: Magnesium Oxide 400 MG Tablet PO (09:20)
[2018-01-02] MEDS: Carvedilol 25 MG Tablet PO (09:21)
[2018-01-02] MEDS: Mycophenolate Mofetil 250 MG Capsule PO (09:21)
[2018-01-02] MEDS: predniSONE 5 MG Tablet 7.5 MG PO (09:21)
[2018-01-02 09:25] VITALS: BP 118/43; PULSE 67; RESP 18; TEMP 36.8; O2SAT 95
[2018-01-02 15:00] VITALS: BP 116/83; PULSE 61; RESP 16; TEMP 36.7; O2SAT 98
--- NOTE | 2018-01-02 18:37 | PCM.DC ---
- Discharge Diagnoses Current Active Problems: Current Active and Chronic Problems Abdominal pain (Acute) Chronic obstructive pulmonary disease (COPD) (Chronic) VIC (obstructive sleep apnea) (Chronic) Anxiety and depression (Chronic) You will use the following diet at home:: No restrictions Your food should be the consistency of: Regular Your liquids should be the consistency of: Regular/Thin Discharge Activity: Return to Normal Activity Weight Bearing Status: Full weight bearing Additional Instructions: take miralax 17 grams once or twice daily to prevent constipation. straight cath yourself four times a day Allergies/Adverse Reactions: Allergies acetaminophen [From Darvocet-N] Allergy (Verified 12/30/17 10:59) Hives propoxyphene napsylate [From Darvocet-N] Allergy (Verified 12/30/17 10:59) Hives venom-honey bee [bee venom (honey bee)] Allergy (Verified 12/30/17 10:59) Hives Medications to take at Discharge Aspirin [Aspirin, Baby] 81 mg PO DAILY 02/21/14 Doxazosin Mesylate [Cardura] 8 mg PO QHS 02/21/14 Mycophenolate Mofetil [Cellcept] 250 mg PO BID 02/21/14 Omeprazole [Prilosec] 20 mg PO DAILY 02/21/14 Sulfamethoxazole/Trimethoprim [Bactrim 400-80 mg Tablet] 1 tablet PO DAILY 02/21/14 Tacrolimus Anhydrous [Prograf] 0.5 mg PO BID 02/21/14 predniSONE tablet 7.5 mg PO DAILY 02/21/14 Magnesium Oxide [Mgo] 400 mg PO BID 12/25/17 Umeclidinium Brm/Vilanterol Tr [Anoro Ellipta 62.5-25 Mcg INH] 1 puff INHALATION QHS 12/25/17 Amlodipine [Norvasc] 5 mg PO DAILY 12/30/17 Atorvastatin Calcium 80 mg PO QHS 12/30/17 Carvedilol 25 mg PO BID 12/30/17 Nitroglycerin [Nitrostat] 0.4 mg SL 4X/DAY PRN PRN 12/30/17 Primary Care Physician: Diana Tate PA [Primary Care Provider] - Please follow up with your Primary Care Physician in: in 2 weeks Please Follow Up With: Carlos Peterson MD When: call next week to make appointment
[2018-01-02 19:00] VITALS: BP 116/83; PULSE 61; RESP 16; TEMP 36.7; O2SAT 98
--- NOTE | 2018-01-04 19:25 | PCM.DC.SUM ---
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 #3 coronary artery disease #4 chronic obstructive pulmonary disease #5 hypertension #6 chronic kidney disease stage III - Secondary Discharge Diagnosis Chronic Problems Chronic kidney disease, stage 3 (Chronic) Renal transplant recipient (Chronic) Immunosuppressed status (Chronic) History of heart bypass surgery (Chronic) Aortic insufficiency (Chronic) Hypercholesterolemia (Chronic) Hypertension (Chronic) Chronic obstructive pulmonary disease (COPD) (Chronic) VIC (obstructive sleep apnea) (Chronic) Anxiety and depression (Chronic) Hypertension (Chronic) Coronary artery disease (Chronic) History of renal transplant (Chronic) Hospital Course and Treatment Operations: None Procedures: None Summary of Care Provided: The patient is a 47 year old M was seen in the emergency room at [facility] with chief complaint of abdominal pain over his lower abdomen bilaterally. The abdominal pain radiated into the back. Ultrasound of the groin was obtained to rule out pseudoaneurysm due to a previous recent cardiac catheterization in the right groin. CT showed a large amount of retained stool and a probable ileus, no other acute abnormalities or noted to explain his abdominal pain symptoms. BUN was elevated at 27 creatinine was 1.54, hemoglobin was 12.1. Lipase was normal. Patient received Zofran IV, IV Dilaudid, and IV fluids. Hospitalist service was called for admission and he was admitted to [place] [address] and seen in consultation by general surgery who felt that the patient was having abdominal pain secondary constipation. Patient was given laxatives which took several days to fully take effect, and that period of time, patient had urinary retention which have been a chronic problem for him in the past and a Machado catheter had to be inserted. On 01/02/18, his Machado catheter was discontinued, he was seen and examined on that date and he voided before he was discharged home in stable condition. It was noted however, patient had a large bladder residual, he had catheterized himself in the past and he was instructed to resume catheterization 4 times a day at home-patient had sterile catheters still at home. He was also was instructed to follow-up with urology for further care-he was referred to Dr. Peterson's office to establish care there. Discharge Activity: Return to Normal Activity Weight Bearing Status: Full weight bearing Home Medications: Medications to take at Discharge Aspirin [Aspirin, Baby] 81 mg PO DAILY 02/21/14 Doxazosin Mesylate [Cardura] 8 mg PO QHS 02/21/14 Mycophenolate Mofetil [Cellcept] 250 mg PO BID 02/21/14 Omeprazole [Prilosec] 20 mg PO DAILY 02/21/14 Sulfamethoxazole/Trimethoprim [Bactrim 400-80 mg Tablet] 1 tablet PO DAILY 02/21/14 Tacrolimus Anhydrous [Prograf] 0.5 mg PO BID 02/21/14 predniSONE tablet 7.5 mg PO DAILY 02/21/14 Magnesium Oxide [Mgo] 400 mg PO BID 12/25/17 Umeclidinium Brm/Vilanterol Tr [Anoro Ellipta 62.5-25 Mcg INH] 1 puff INHALATION QHS 12/25/17 Amlodipine [Norvasc] 5 mg PO DAILY 12/30/17 Atorvastatin Calcium 80 mg PO QHS 12/30/17 Carvedilol 25 mg PO BID 12/30/17 Nitroglycerin [Nitrostat] 0.4 mg SL 4X/DAY PRN PRN 12/30/17 Primary Care Physician: Diana Tate PA [Primary Care Provider] - Please follow up with your Primary Care Physician in: in 2 weeks Please Follow Up With: Diana Tate PA When: call next week to make appointment Please Follow Up With: Carlos Peterson MD Disposition: Home Minutes spent on discharge:: 35 Patient Condition:: Stable Medical Necessity - Tobacco Use Smoking Status: Former smoker Tobacco Use: Non-smoker Meaningful Use Info Meaningful Use Diagnoses (Choose all that apply): None applicable Code Visit Inpatient E&M: 23788 Disch Hosp
--- NOTE | 2018-01-04 19:30 | DS.PCM_ITS ---
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 #3 coronary artery disease #4 chronic obstructive pulmonary disease #5 hypertension #6 chronic kidney disease stage III - Secondary Discharge Diagnosis Chronic Problems Chronic kidney disease, stage 3 (Chronic) Renal transplant recipient (Chronic) Immunosuppressed status (Chronic) History of heart bypass surgery (Chronic) Aortic insufficiency (Chronic) Hypercholesterolemia (Chronic) Hypertension (Chronic) Chronic obstructive pulmonary disease (COPD) (Chronic) VIC (obstructive sleep apnea) (Chronic) Anxiety and depression (Chronic) Hypertension (Chronic) Coronary artery disease (Chronic) History of renal transplant (Chronic) Hospital Course and Treatment Operations: None Procedures: None Summary of Care Provided: The patient is a 47 year old M was seen in the emergency room at [facility] with chief complaint of abdominal pain over his lower abdomen bilaterally. The abdominal pain radiated into the back. Ultrasound of the groin was obtained to rule out pseudoaneurysm due to a previous recent cardiac catheterization in the right groin. CT showed a large amount of retained stool and a probable ileus, no other acute abnormalities or noted to explain his abdominal pain symptoms. BUN was elevated at 27 creatinine was 1.54 , hemoglobin was 12.1. Lipase was normal. Patient received Zofran IV, IV Dilaudid, and IV fluids. Hospitalist service was called for admission and he was admitted to [place] [address] and seen in consultation by general surgery who felt that the patient was having abdominal pain secondary constipation. Patient was given laxatives which took several days to fully take effect, and that period of time, patient had urinary retention which have been a chronic problem for him in the past and a Machado catheter had to be inserted. On 01/02/18, his Machado catheter was discontinued, he was seen and examined on that date and he voided before he was discharged home in stable condition. It was noted however, patient had a large bladder residual, he had catheterized himself in the past and he was instructed to resume catheterization 4 times a day at home-patient had sterile catheters still at home. He was also was instructed to follow-up with urology for further care-he was referred to Dr. Peterson's office to establish care there. Discharge Activity: Return to Normal Activity Weight Bearing Status: Full weight bearing Home Medications: Medications to take at Discharge Aspirin [Aspirin, Baby] 81 mg PO DAILY 02/21/14 Doxazosin Mesylate [Cardura] 8 mg PO QHS 02/21/14 Mycophenolate Mofetil [Cellcept] 250 mg PO BID 02/21/14 Omeprazole [Prilosec] 20 mg PO DAILY 02/21/14 Sulfamethoxazole/Trimethoprim [Bactrim 400-80 mg Tablet] 1 tablet PO DAILY 02/21 Tacrolimus Anhydrous [Prograf] 0.5 mg PO BID 02/21/14 predniSONE tablet 7.5 mg PO DAILY 02/21/14 Magnesium Oxide [Mgo] 400 mg PO BID 12/25/17 Umeclidinium Brm/Vilanterol Tr [Anoro Ellipta 62.5-25 Mcg INH] 1 puff INHALATION QHS 12/25/17 Amlodipine [Norvasc] 5 mg PO DAILY 12/30/17 Atorvastatin Calcium 80 mg PO QHS 12/30/17 Carvedilol 25 mg PO BID 12/30/17 Nitroglycerin [Nitrostat] 0.4 mg SL 4X/DAY PRN PRN 12/30/17 Primary Care Physician: Diana Tate PA [Primary Care Provider] - Please follow up with your Primary Care Physician in: in 2 weeks Please Follow Up With: Diana Tate PA When: call next week to make appointment Please Follow Up With: Carlos Peterson MD Disposition: Home Minutes spent on discharge:: 35 Patient Condition:: Stable Medical Necessity - Tobacco Use Smoking Status: Former smoker Tobacco Use: Non-smoker Meaningful Use Info Meaningful Use Diagnoses (Choose all that apply): None applicable Code Visit Inpatient E&M: 44749 Disch Hosp
== END 2018-01-02 19:10 | disposition home or self-care (01) | DRG 391 ==
LOC: ED 14:58 → MS2 15:13
PROVIDERS: Admitting Provider Family Medicine; Emergency Provider Emergency Medicine; Family Provider Physician Assistant; PCP Physician Assistant; Visit Provider Internal Medicine
DX: K59.00 Constipation, unspecified (principal); N18.6 End stage renal disease; E11.22 Type 2 diabetes mellitus with diabetic chronic kidney disease; I12.0 Hypertensive chronic kidney disease with stage 5 chronic kidney disease or end stage renal disease; D69.6 Thrombocytopenia, unspecified; Z94.0 Kidney transplant status; I35.1 Nonrheumatic aortic (valve) insufficiency; I25.10 Atherosclerotic heart disease of native coronary artery without angina pectoris; Z95.1 Presence of aortocoronary bypass graft; E78.00 Pure hypercholesterolemia, unspecified; J44.9 Chronic obstructive pulmonary disease, unspecified; G47.33 Obstructive sleep apnea (adult) (pediatric); F41.9 Anxiety disorder, unspecified; F32.9 Major depressive disorder, single episode, unspecified; Z79.82 Long term (current) use of aspirin; Z79.899 Other long term (current) drug therapy; Z87.891 Personal history of nicotine dependence; D63.8 Anemia in other chronic diseases classified elsewhere; N31.2 Flaccid neuropathic bladder, not elsewhere classified; N40.1 Benign prostatic hyperplasia with lower urinary tract symptoms; R33.8 Other retention of urine
CPT/HCPCS: 36415; 74176; 80048; 80053; 81001; 83690; 83735; 85025; 93926; 94640; 97802; 99283; J7030; J7040; A4216; J2405

== ENCOUNTER → 2018-02-25 09:38 | Outpatient (CLI) | payer MEDICARE, OTHER, SELFPAY ==
[2018-02-25 10:38] LABS: Homocysteine 26.8 umol/L (3.2-10.7)
[2018-02-25 11:38] LABS: AST(SGOT) 28 U/L (15-37); Alanine Aminotransfer ALT/SGPT 40 U/L (16-61); Albumin, Serum 3.2 g/dL (3.2-5.0); Alkaline Phosphatase 139 U/L (45-117); Anion Gap 8 (5-15); BUN 22 mg/dL (7-18); BUN/Creat Ratio 14.5 RATIO (10-20); Chloride 101 mmol/L (98-107); Cholesterol 103 mg/dL (200); Creatinine, Serum 1.52 mg/dL (0.70-1.30); EST Glomerular Filtration Rate 52 mL/min (>60); Est Glom Filt Rate - Afr Amer 63 mL/min (>60); Globulin 3.1 g/dL (2.2-4.2); Glucose 76 mg/dL (74-106); High Density Lipoprotein 47 mg/dL; Phosphorus 2.5 mg/dL (2.5-4.9); Potassium 4.8 mmol/L (3.5-5.1); Protein, Total 6.3 g/dL (6.4-8.2); Sodium Level 136 mmol/L (136-145); Triglycerides 60 mg/dL; Very Low Density Lipoprotein 12 mg/dL (5-40)
[2018-02-26 10:57] LABS: PTHIN 180.4 pg/mL (18.4-80.1)
[2018-02-28 14:03] LABS: Tacrolimus (FK506) 5.6 ng/mL (2.0-20.0)
== END ==
PROVIDERS: Family Provider Physician Assistant; PCP Physician Assistant; Visit Provider Internal Medicine Nephrology
DX: Z48.22 Encounter for aftercare following kidney transplant (principal); N18.3 Chronic kidney disease, stage 3 (moderate); E78.5 Hyperlipidemia, unspecified
CPT/HCPCS: 80053; 80061; 80197; 82306; 83090; 83735; 83970; 84100

== ENCOUNTER → 2018-05-31 07:06 | Outpatient (CLI) | payer MEDICARE, OTHER, SELFPAY ==
[2018-05-31 09:17] LABS: Absolute Lymphocyte Count 0.83 X10^3/ul (0.83-4.51); Absolute Neutrophil Count 3.7 X10^3/uL (2.0-7.7); Basophil# 0.01 X10^3/uL; Basophil% 0.2 % (0-1); Eosinophil# 0.05 X10^3/uL; Hemoglobin 10.8 g/dl (13.0-16.5); Lymphocyte # 0.83 X10^3/ul (4.0); Lymphocyte % 16.2 % (19-41); Mean Corp Hgb Conc 30.9 g/gl (32-36); Mean Corpuscular Hgb 29.1 pg (27.0-32.0); Mean Corpuscular Volume 94.3 fL (80-94); Mean Platelet Vol. 10.4 fl (6.2-12.0); Monocyte# 0.55 X10^3/uL; Monocyte% 10.8 % (0-10); Neutrophil # 3.66 X10^3/uL (2.7-7.7); Neutrophil % 71.6 % (47-70); Platelet Count 116 K/mm3 (150-450); RBC Distribution Width CV 14.9 % (11.6-14.6); RBC Distribution Width SD 51.7 fl (35.1-43.9); Red Blood Count 3.71 M/mm3 (4.6-6.2); White Blood Count 5.1 K/mm3 (4.4-11.0)
[2018-05-31 09:21] LABS: POSITIVE COUNT NO; POSITIVE DIFFERENTIAL NO; POSITIVE MORPHOLOGY NO
[2018-05-31 09:39] LABS: ALB/GLOB Ratio 1.2 RATIO (0.9-2.4); AST(SGOT) 33 U/L (15-37); Alanine Aminotransfer ALT/SGPT 37 U/L (16-61); Albumin, Serum 3.4 g/dL (3.2-5.0); Alkaline Phosphatase 165 U/L (45-117); Anion Gap 7 (5-15); BUN 24 mg/dL (7-18); BUN/Creat Ratio 12.1 RATIO (10-20); Calcium,Total 9.9 mg/dL (8.5-10.1); Chloride 107 mmol/L (98-107); Cholesterol 70 mg/dL (200); Creatinine, Serum 1.99 mg/dL (0.70-1.30); EST Glomerular Filtration Rate 38 mL/min (>60); Est Glom Filt Rate - Afr Amer 46 mL/min (>60); Globulin 2.8 g/dL (2.2-4.2); Glucose 83 mg/dL (74-106); High Density Lipoprotein 38 mg/dL; Potassium 4.8 mmol/L (3.5-5.1); Protein, Total 6.2 g/dL (6.4-8.2); Sodium Level 139 mmol/L (136-145); Triglycerides 58 mg/dL; Very Low Density Lipoprotein 12 mg/dL (5-40)
[2018-06-04 08:12] LABS: Tacrolimus (FK506) 6.2 ng/mL (2.0-20.0)
== END ==
PROVIDERS: Family Provider Physician Assistant; PCP Physician Assistant; Visit Provider Internal Medicine Nephrology
DX: Z48.22 Encounter for aftercare following kidney transplant (principal); E72.10 Disorders of sulfur-bearing amino-acid metabolism, unspecified; E78.5 Hyperlipidemia, unspecified
CPT/HCPCS: 36415; 80053; 80061; 80197; 83090; 85025

== ENCOUNTER → 2018-09-13 09:10 | Outpatient (CLI) | payer OTHER, SELFPAY ==
[2018-09-13 10:06] LABS: Absolute Lymphocyte Count 1.03 X10^3/ul (0.83-4.51); Absolute Neutrophil Count 3.5 X10^3/uL (2.0-7.7); Basophil# 0.02 X10^3/uL; Basophil% 0.4 % (0-1); Eosinophils% 1.9 % (0-5); Hematocrit 34.1 % (40-54); Hemoglobin 11.1 g/dl (13.0-16.5); Lymphocyte # 1.03 X10^3/ul (4.0); Lymphocyte % 19.4 % (19-41); Mean Corp Hgb Conc 32.6 g/gl (32-36); Mean Corpuscular Hgb 30.2 pg (27.0-32.0); Mean Corpuscular Volume 92.7 fL (80-94); Mean Platelet Vol. 10.5 fl (6.2-12.0); Monocyte# 0.65 X10^3/uL; Monocyte% 12.3 % (0-10); Neutrophil # 3.49 X10^3/uL (2.7-7.7); Neutrophil % 65.8 % (47-70); POSITIVE COUNT NO; POSITIVE DIFFERENTIAL NO; POSITIVE MORPHOLOGY NO; Platelet Count 117 K/mm3 (150-450); RBC Distribution Width CV 13.3 % (11.6-14.6); RBC Distribution Width SD 43.7 fl (35.1-43.9); Red Blood Count 3.68 M/mm3 (4.6-6.2); White Blood Count 5.3 K/mm3 (4.4-11.0)
[2018-09-13 10:19] LABS: ALB/GLOB Ratio 1.2 RATIO (0.9-2.4); AST(SGOT) 19 U/L (15-37); Alanine Aminotransfer ALT/SGPT 23 U/L (16-61); Albumin, Serum 3.7 g/dL (3.2-5.0); Alkaline Phosphatase 107 U/L (45-117); Anion Gap 8 (5-15); BUN 25 mg/dL (7-18); BUN/Creat Ratio 16.4 RATIO (10-20); Chloride 105 mmol/L (98-107); Cholesterol 125 mg/dL (200); Creatinine, Serum 1.52 mg/dL (0.70-1.30); EST Glomerular Filtration Rate 52 mL/min (>60); Est Glom Filt Rate - Afr Amer 63 mL/min (>60); Globulin 3.1 g/dL (2.2-4.2); Glucose 85 mg/dL (74-106); High Density Lipoprotein 71 mg/dL; Magnesium 1.9 mg/dL (1.6-2.6); Potassium 4.4 mmol/L (3.5-5.1); Protein, Total 6.8 g/dL (6.4-8.2); Sodium Level 139 mmol/L (136-145); Triglycerides 52 mg/dL; Very Low Density Lipoprotein 10 mg/dL (5-40)
== END ==
PROVIDERS: Family Provider Physician Assistant; PCP Physician Assistant; Referring Provider Internal Medicine Nephrology; Visit Provider Internal Medicine Nephrology
DX: Z48.22 Encounter for aftercare following kidney transplant (principal); E78.5 Hyperlipidemia, unspecified; E72.10 Disorders of sulfur-bearing amino-acid metabolism, unspecified
CPT/HCPCS: 36415; 80053; 80061; 80197; 83735; 85025

== ENCOUNTER → 2018-09-26 09:24 | Outpatient (CLI) | payer BC, SELFPAY ==
[2018-09-26 11:09] LABS: Hematocrit 35.1 % (40-54); Hemoglobin 11.6 g/dl (13.0-16.5); Mean Corpuscular Hgb 29.9 pg (27.0-32.0); Mean Corpuscular Volume 90.5 fL (80-94); Platelet Count 100 K/mm3 (150-450); RBC Distribution Width SD 42.4 fl (35.1-43.9); Red Blood Count 3.88 M/mm3 (4.6-6.2); White Blood Count 6.4 K/mm3 (4.4-11.0)
[2018-09-26 11:10] LABS: Scan Indicated on CBC? Y/N NO
[2018-09-26 11:49] LABS: Albumin, Serum 3.7 g/dL (3.2-5.0); BUN 39 mg/dL (7-18); BUN/Creat Ratio 19.9 RATIO (10-20); Calcium,Total 10.1 mg/dL (8.5-10.1); Chloride 106 mmol/L (98-107); Creatinine, Serum 1.96 mg/dL (0.70-1.30); EST Glomerular Filtration Rate 39 mL/min (>60); Est Glom Filt Rate - Afr Amer 47 mL/min (>60); Glucose 104 mg/dL (74-106); Phosphorus 3.4 mg/dL (2.5-4.9); Potassium 4.8 mmol/L (3.5-5.1); Sodium Level 137 mmol/L (136-145)
[2018-09-29 12:31] LABS: Tacrolimus (FK506) 4.5 ng/mL (2.0-20.0)
== END ==
PROVIDERS: Family Provider Physician Assistant; PCP Physician Assistant
DX: Z94.0 Kidney transplant status (principal)
CPT/HCPCS: 36415; 80069; 80197; 85027

== ENCOUNTER → 2019-02-28 09:08 | Outpatient (CLI) | payer BC, SELFPAY ==
[2019-02-28 09:52] LABS: Hematocrit 35.9 % (40-54); Hemoglobin 11.8 g/dl (13.0-16.5); Mean Corp Hgb Conc 32.9 g/gl (32-36); Mean Corpuscular Hgb 28.7 pg (27.0-32.0); Mean Corpuscular Volume 87.3 fL (80-94); Mean Platelet Vol. 10.2 fl (6.2-12.0); Platelet Count 115 K/mm3 (150-450); RBC Distribution Width CV 13.5 % (11.6-14.6); RBC Distribution Width SD 43.6 fl (35.1-43.9); Red Blood Count 4.11 M/mm3 (4.6-6.2); White Blood Count 4.9 K/mm3 (4.4-11.0)
[2019-02-28 09:53] LABS: Scan Indicated on CBC? Y/N NO
[2019-02-28 10:41] LABS: ALB/GLOB Ratio 1.2 RATIO (0.9-2.4); AST(SGOT) 17 U/L (15-37); Alanine Aminotransfer ALT/SGPT 23 U/L (16-61); Albumin, Serum 3.7 g/dL (3.2-5.0); Alkaline Phosphatase 115 U/L (45-117); Anion Gap 5 (5-15); BUN 25 mg/dL (7-18); BUN/Creat Ratio 14.8 RATIO (10-20); Calcium,Total 10.1 mg/dL (8.5-10.1); Chloride 106 mmol/L (98-107); Cholesterol 120 mg/dL (200); Creatinine, Serum 1.69 mg/dL (0.70-1.30); EST Glomerular Filtration Rate 46 mL/min (>60); Est Glom Filt Rate - Afr Amer 56 mL/min (>60); Globulin 3.1 g/dL (2.2-4.2); Glucose 86 mg/dL (74-106); High Density Lipoprotein 65 mg/dL; Magnesium 1.9 mg/dL (1.6-2.6); Potassium 4.5 mmol/L (3.5-5.1); Protein, Total 6.8 g/dL (6.4-8.2); Sodium Level 138 mmol/L (136-145); Triglycerides 44 mg/dL; Very Low Density Lipoprotein 9 mg/dL (5-40)
[2019-02-28 10:49] LABS: Homocysteine 19.4 umol/L (3.2-10.7)
[2019-02-28 10:55] LABS: Phosphorus 3.2 mg/dL (2.5-4.9)
[2019-03-02 09:36] LABS: PTHIN 158.6 pg/mL (18.4-80.1); Vitamin D,25 Hydroxy 43.1 ng/mL (29.95-100.01)
[2019-03-04 15:50] LABS: Tacrolimus (FK506) 3.1 ng/mL (2.0-20.0)
== END ==
LOC: LAB 09:12
PROVIDERS: Family Provider Physician Assistant; PCP Physician Assistant; Referring Provider Internal Medicine Nephrology; Visit Provider Internal Medicine Nephrology
DX: Z48.22 Encounter for aftercare following kidney transplant (principal); N18.3 Chronic kidney disease, stage 3 (moderate); E78.5 Hyperlipidemia, unspecified; E72.10 Disorders of sulfur-bearing amino-acid metabolism, unspecified
CPT/HCPCS: 36415; 80053; 80061; 80197; 82306; 83090; 83735; 83970; 84100; 85027

== ENCOUNTER 2019-07-22 02:30 | Inpatient (IN) | payer BC, SELFPAY ==
[2019-07-22] VITALS (25 sets, daily range): BP systolic 85–116; BP diastolic 41–70; PULSE 60–129; RESP 15–24; TEMP 36.4–38.4; O2SAT 91–97; BMI 22.6; BMI 23.1
--- NOTE | 2019-07-22 02:33 | ED.RN ---
RN CALLED FOR EKG, PULLED OLD EKGS FOR
--- NOTE | 2019-07-22 02:44 | RAD_ITS ---
STUDY: X-RAY CHEST REASON FOR EXAM: Male, 49 years old. Pneumonia. TECHNIQUE: AP portable COMPARISON: 12/25/[address] abdomen/pelvis from 01/01/2018. FINDINGS: Patient is status post median sternotomy. There are patchy left lung base opacity with indistinct left hemidiaphragm. Right lung remains relatively clear. Normal size heart. Normal mediastinum and vimal. Normal visualized pulmonary arteries. There is atherosclerotic calcification of the aortic arch with tortuosity. Normal visualized thoracic spine. Normal visualized ribs, clavicles, and shoulders. There is no demonstrated abnormality of the visualized soft tissue structures of the upper abdomen. RAD/Chest 1 View (Portable) IMPRESSION: Patchy left lung base opacities and indistinct hemidiaphragm likely due to underlying chronic lung changes and prior detected pleural based calcifications. Findings appears similar to prior chest radiograph. Superimposed infectious process not excluded. Electronically Signed: Galindo Anthony, at 3:38 EDT Tel , Service support ,
--- NOTE | 2019-07-22 02:44 | EKG12_ITS ---
Test Reason : Blood Pressure : / mmHG Vent. Rate : 067 BPM Atrial Rate : 067 BPM P-R Int : 132 ms QRS Dur : 100 ms QT Int : 380 ms P-R-T Axes : 055 -56 036 degrees QTc Int : 401 ms Sinus rhythm with marked sinus arrhythmia Left anterior fascicular block Nonspecific ST and T wave abnormality Abnormal ECG Confirmed by KYRA BURT, JOESPH ([id number]), publishing editor EDSON PEREIRA ([id number]) on 07/29/2019 10:59:21 AM Referred By: NGHIA Confirmed By:PA RAE MD
[2019-07-22] MEDS: 0.9% Normal Saline 1,000 ML 150 ML IV ×3 (02:45→20:10)
--- NOTE | 2019-07-22 02:52 | ED.VIS.GEN ---
History of Present Illness Chief Complaint: Shortness of Breath Detail of Chief Complaint: Pneumonia Informant: Patient Onset: Days - 3 days Current Severity: Moderate Maximum Severity: Moderate Narrative: Patient presents with cough and congestion for the past 3 days. He has had fever. He was seen at urgent care yesterday where he was diagnosed with pneumonia. He is currently on Augmentin and doxycycline. He presents due to shortness of breath. He states he tried to lay down to sleep and is having frequent coughing and difficulty catching his breath. He is not bringing up any colored sputum. He will sometimes get lung tightness and will have some wheezing. He states he has pain in his back as well. Past Medical History - Allergies and Home Meds Allergies/Adverse Reactions: Allergies acetaminophen [From Darvocet-N] Allergy (Verified 07/22/19 02:31) Hives propoxyphene napsylate [From Darvocet-N] Allergy (Verified 07/22/19 02:31) Hives venom-honey bee [bee venom (honey bee)] Allergy (Verified 07/22/19 02:31) Hives Primary Care Physician: Diana Tate PA [Primary Care Provider] - Prior records reviewed: Yes Past Medical History: - - Reviewed Surgical History: coronary bypass surgery, - - Renal transplantation x 2, bladder surgery, pericardial window secondary to renal failure. Lives: Spouse/ Significant Other Smoking Status: Former smoker - Family History Maternal Family History: Reports: No pertinent history Paternal Family History: Reports: No pertinent history Sibling Family History: Reports: No pertinent history Review of Systems General: Reports: Chills, Fever Eyes: Denies: Visual changes - bilaterally ENT: Denies: Bilateral ear pain Cardiovascular: Reports: Chest pain - Lung tightness Respiratory: Reports: Dyspnea, Cough. Denies: Sputum Gastrointestinal: Denies: Abdominal pain, Nausea, Vomiting, Diarrhea Genitourinary: Denies: Dysuria Musculoskeletal: Reports: Back pain Skin: Denies: Rash Neurological: Denies: Headache Physical Exam Vital Signs/Narrative: Vital Signs Temp Pulse Resp BP Pulse Ox 07/22/19 02:31 98.7 F 69 18 107/65 92 Inital Vital Signs reviewed: Yes General: Well nourished, Well developed Head: Normocephalic ENT: Moist mucous membranes Neck: Supple Cardiovascular: Regular rate, Regular rhythm Respiratory: Decreased Air Movement Abdomen: Soft, Nontender Skin: No rash Neurological: Alert, Oriented x3 Psychological: Normal affect Diagnostic/Tx/Re-eval Impressions Chest X-Ray 07/22/19 02:44 IMPRESSION: Patchy left lung base opacities and indistinct hemidiaphragm likely due to underlying chronic lung changes and prior detected pleural based calcifications. Findings appears similar to prior chest radiograph. Superimposed infectious process not excluded. Electronically Signed: Galindo Cespedesassen, at 3:38 EDT Tel , Service support , Chest CT 07/22/19 04:09 IMPRESSION: Mild scattered patchy bilateral lung opacities with tree-in-bud nodularity likely due to underlying infectious bronchopneumonia. Follow-up to resolution recommended. Stable left lung base scarring and pleural-based calcification. Status post median sternotomy and CABG. Electronically Signed: Galindo Cespedesassen, at 5:05 EDT Tel , Service support , 07/22/19 02:44 Chest 1 View (Portable) [RAD] Stat 07/22/19 04:09 CT Chest [Chest without Contrast] [CT] Stat Laboratory Results 07/22/19 07/22/19 07/22/19 02:58 02:58 02:58 WBC 4.7 RBC 3.83 L Hgb 11.4 L Hct 34.4 L MCV 89.8 MCH 29.8 MCHC 33.1 RDW Std Deviation 43.8 RDW Coeff of Adamaris 13.3 Plt Count 72 L MPV 10.6 Immature Gran % (Auto) 0.200 Neut % (Auto) 76.1 H Lymph % (Auto) 12.0 L Mayes % (Auto) 10.9 H Eos % (Auto) 0.4 Baso % (Auto) 0.4 Absolute Neuts (auto) 3.6 Absolute Lymphs (auto) 0.56 L Nucleated RBC % 0 Differential Comment SCANNED PT 13.9 INR 1.1 APTT 37.7 H D-Dimer Quant (PE/DVT) 1.05 H* Sodium 136 Potassium 4.5 Chloride 106 Carbon Dioxide 23.0 Anion Gap 7 BUN 39 H Creatinine 2.28 H Estim Creat Clear Calc 33.72 Est GFR (MDRD) Af Amer 39 L Est GFR (MDRD) Non-Af 32 L BUN/Creatinine Ratio 17.1 Glucose 124 H Lactic Acid Calcium 9.2 Total Bilirubin 0.60 AST 22 ALT 19 Alkaline Phosphatase 67 Troponin I < 0.015 Total Protein 6.3 L Albumin 3.5 Globulin 2.8 Albumin/Globulin Ratio 1.2 07/22/19 02:58 WBC RBC Hgb Hct MCV MCH MCHC RDW Std Deviation RDW Coeff of Adamaris Plt Count MPV Immature Gran % (Auto) Neut % (Auto) Lymph % (Auto) Mayes % (Auto) Eos % (Auto) Baso % (Auto) Absolute Neuts (auto) Absolute Lymphs (auto) Nucleated RBC % Differential Comment PT INR APTT D-Dimer Quant (PE/DVT) Sodium Potassium Chloride Carbon Dioxide Anion Gap BUN Creatinine Estim Creat Clear Calc Est GFR (MDRD) Af Amer Est GFR (MDRD) Non-Af BUN/Creatinine Ratio Glucose Lactic Acid 0.9 Calcium Total Bilirubin AST ALT Alkaline Phosphatase Troponin I Total Protein Albumin Globulin Albumin/Globulin Ratio - EKG Initial EKG Interpretation: Sinus Rhythm - Sinus at 67. Lateral biphasic T waves are noted, new when compared to December 2017. - Medical Decision Making Patient was given DuoNeb treatment followed by albuterol. O2 sats remain marginal and is placed on nasal cannula. Blood work is reviewed. I was able to review the urgent care note from [facility] yesterday. Influenza swab was negative. He was treated with Augmentin and doxycycline. CT scan of the chest does show bilateral infiltrates. Unfortunately patient's renal function is not strong enough to tolerate a CTA to rule out PE. Patient has had prior PE and tells me his current symptoms feel nothing like his prior clots. He will be treated with Rocephin and Zithromax. I will speak with hospitalist regarding admission. ED Disposition - Plan for ED Patient: Disposition: Acute Care Hospital [facility] Diagnosis: Pneumonia Referrals: Diana Tate PA [Primary Care Provider] -
[2019-07-22] MEDS: Ipratropium/Albuterol Sulfate 3 ML AMPUL.NEB INHALATION ×3 (03:07→17:18)
[2019-07-22 03:09] LABS: Absolute Lymphocyte Count 0.56 X10^3/uL (0.83-4.51); Absolute Neutrophil Count 3.6 X10^3/uL (2.0-7.7); Basophil# 0.02 X10^3/uL; Basophil% 0.4 % (0-1); Eosinophil# 0.02 X10^3/uL; Eosinophils% 0.4 % (0-5); Hematocrit 34.4 % (40-54); Hemoglobin 11.4 g/dL (13.0-16.5); Lymphocyte # 0.56 X10^3/ul (4.0); Mean Corp Hgb Conc 33.1 g/dL (32-36); Mean Corpuscular Hgb 29.8 pg (27.0-32.0); Mean Corpuscular Volume 89.8 fL (80-94); Mean Platelet Vol. 10.6 fl (6.2-12.0); Monocyte# 0.51 X10^3/uL; Monocyte% 10.9 % (0-10); NRBC Flagged by Analyzer 0 % (0-5); Neutrophil # 3.55 X10^3/uL (2.7-7.7); Neutrophil % 76.1 % (47-70); POSITIVE DIFFERENTIAL YES; Platelet Count 72 K/mm3 (150-450); RBC Distribution Width CV 13.3 % (11.6-14.6); RBC Distribution Width SD 43.8 fl (35.1-43.9); Red Blood Count 3.83 M/mm3 (4.6-6.2); White Blood Count 4.7 K/mm3 (4.4-11.0)
[2019-07-22 03:14] LABS: International Normalized Ratio 1.1; Prothrombin Time (Protime)PT. 13.9 SECONDS (11.7-14.9)
[2019-07-22 03:15] LABS: Partial Thromboplast Time 37.7 Seconds (24.1-36.2)
[2019-07-22 03:16] LABS: Differential Indicated SCAN CRITERIA MET
[2019-07-22] MEDS: Albuterol 2.5 MG/3 ML VIAL.NEB. INHALATION (03:19)
[2019-07-22 03:23] LABS: D-Dimer Quantitative (DVT/PE) 1.05 FEU/ug/m (0.27-0.49)
--- NOTE | 2019-07-22 03:23 | ED.RN ---
PT D-DIMER 1.05. DR. MUNGUIA INFORMED.
[2019-07-22 03:27] LABS: Differential Comment SCANNED
[2019-07-22 03:29] LABS: Lactic Acid 0.9 mmol/L (0.4-2.0)
[2019-07-22 04:03] LABS: ALB/GLOB Ratio 1.2 RATIO (0.9-2.4); AST(SGOT) 22 U/L (15-37); Alanine Aminotransfer ALT/SGPT 19 U/L (16-61); Albumin, Serum 3.5 g/dL (3.2-5.0); Alkaline Phosphatase 67 U/L (45-117); Anion Gap 7 (5-15); BUN 39 mg/dL (7-18); BUN/Creat Ratio 17.1 RATIO (10-20); Calcium,Total 9.2 mg/dL (8.5-10.1); Chloride 106 mmol/L (98-107); Creatinine, Serum 2.28 mg/dL (0.70-1.30); EST Glomerular Filtration Rate 32 mL/min (>60); Est Glom Filt Rate - Afr Amer 39 mL/min (>60); Estimated Creatinine Clearance 33.72 ml/min; Globulin 2.8 g/dL (2.2-4.2); Glucose 124 mg/dL (74-106); Potassium 4.5 mmol/L (3.5-5.1); Protein, Total 6.3 g/dL (6.4-8.2); Sodium Level 136 mmol/L (136-145)
--- NOTE | 2019-07-22 04:09 | CT_ITS ---
STUDY: CT CHEST WITHOUT CONTRAST REASON FOR EXAM: Male, 49 years old. pneumonia, COPD RADIATION DOSAGE (If Supplied By Facility): CTDIvol = ( 12.11 ) mGy, DLP = ( 472.21 ) mGycm TECHNIQUE: Transaxial imaging was performed without the administration of intravenous contrast material. Individualized dose optimization techniques were used for this CT. COMPARISON: CT abdomen from 01/01/2019. FINDINGS: The lungs demonstrate mild scattered bilateral lung opacities. Stable left lung base linear density and pleural calcifications. There are surgical suture lines within the right lung apex. Scattered coronary artery calcifications. The patient is status post median sternotomy and CABG. Normal mediastinum. Normal hilar regions. Normal unenhanced pulmonary arteries. Normal aorta arch and descending thoracic aorta. Negative osseous structures. There is no demonstrated abnormality of the visualized upper abdomen. CT/Chest without Contrast IMPRESSION: Mild scattered patchy bilateral lung opacities with tree-in-bud nodularity likely due to underlying infectious bronchopneumonia. Follow-up to resolution recommended. Stable left lung base scarring and pleural-based calcification. Status post median sternotomy and CABG. Electronically Signed: Galindo Anthony, at 5:05 EDT Tel , Service support ,
[2019-07-22] MEDS: Ondansetron 4 MG/2 ML Vial IV (04:17)
[2019-07-22] MEDS: Morphine 4 MG/ML Syringe IV (04:17)
[2019-07-22] MEDS: Ceftriaxone 1 GM/50 ML BAG IV (05:27)
[2019-07-22] MEDS: fentaNYL 100 MCG/2 ML Ampul 25 MCG IV (06:24)
--- NOTE | 2019-07-22 06:27 | HP.PCM_ITS ---
Problem List (1) Pneumonia Status: Acute Qualifiers: Pneumonia type: due to unspecified organism Laterality: bilateral Lung location: unspecified part of lung Qualified Code(s): J18.9 - Pneumonia, unspecified organism (2) Chronic kidney disease, stage 3 Status: Chronic (3) Renal transplant recipient Status: Chronic (4) History of heart bypass surgery Status: Chronic (5) Hypercholesterolemia Status: Chronic (6) Hypertension Status: Chronic Qualifiers: Hypertension type: essential hypertension Qualified Code(s): I10 - Essential (primary) hypertension (7) Chronic obstructive pulmonary disease (COPD) Status: Chronic Qualifiers: COPD type: unspecified COPD Qualified Code(s): J44.9 - Chronic obstructive pulmonary disease, unspecified (8) VIC (obstructive sleep apnea) Status: Chronic (9) Anxiety and depression Status: Chronic History of Present Illness Date of Admission: 07/22/19 Chief Complaint: Cough, dyspnea, malaise The patient is a 49-year-old female with past medical history of chronic thrombocytopenia, hypertension, hyperlipidemia, CKD stage III, Chronic normocytic anemia, Hx ESRD s/p Renal Transplant x 2, Seizure history w/ ESRD now resolved, CAD s/p CABG x 4, Chronic COPD, Anxiety and Depression, Chronic back pain, History of remote PE (15-20 years prior) who presents to the [facility] ED on 07/22/19 with history of picking to feel poorly with malaise, fatigue, arthralgias, myalgias approximately 4 days prior with dry cough and dyspnea which progressively worsening prompting him to be evaluated at urgent care the day prior to current presentation with at that time chest x-ray and initiation on Augmentin and doxycycline with a noted negative flu swab with only 2 doses prior to ED presentation, worsening with fevers and chills onset. Patient also complained of audible pleuritic discomfort and worsened back discomfort. Work- up in the ED included T 99, heart rate 63, BP 90/53, respiratory rate 18, 92 6% on 2 L nasal cannula, CBC with WBC 4.7, hemoglobin 11.4, platelets 72 without market evidence of left shift, coags with PTT 37.7, d-dimer 1.05, CMP with BUN/creatinine 39/2.28, glucose 124, lactic acid 0.9, troponin less than 0.015, Blood culture x2 pending per ED, chest x-ray patchy left lung base opacities and indistinct hemidiaphragm likely due to underlying chronic lung changes with prior detected pleural-based calcifications similar to prior chest x-ray, CT chest with mild scattered patchy bilateral lung opacities with tree-in-bud nodularity suspicious for infectious bronchopneumonia with stable left lung base scarring and pleural-based calcification, status post median sternotomy and CABG. work-up in the ED included normal saline, azithromycin, Rocephin, morphine, Zofran, DuoNeb and albuterol therapies. Past Medical History Past Medical History (Chronic Problems): Chronic Problems Chronic kidney disease, stage 3 (Chronic) Renal transplant recipient (Chronic) Immunosuppressed status (Chronic) History of heart bypass surgery (Chronic) Aortic insufficiency (Chronic) Hypercholesterolemia (Chronic) Hypertension (Chronic) Chronic obstructive pulmonary disease (COPD) (Chronic) VIC (obstructive sleep apnea) (Chronic) Anxiety and depression (Chronic) Hypertension (Chronic) Coronary artery disease (Chronic) History of renal transplant (Chronic) Allergies acetaminophen [From Darvocet-N] Allergy (Verified 07/22/19 02:31) Hives propoxyphene napsylate [From Darvocet-N] Allergy (Verified 07/22/19 02:31) Hives venom-honey bee [bee venom (honey bee)] Allergy (Verified 07/22/19 02:31) Hives Home Medications: Ambulatory Orders Medication Instructions Recorded Aspirin [Aspirin, Baby] 81 mg PO DAILY 02/21/14 Doxazosin Mesylate [Cardura] 8 mg PO DAILY 02/21/14 Mycophenolate Mofetil [Cellcept] 250 mg PO BID 02/21/14 Omeprazole [Prilosec] 20 mg PO DAILY 02/21/14 Sulfamethoxazole/Trimethoprim 1 tablet PO DAILY 02/21/14 [Bactrim 400-80 mg Tablet] predniSONE tablet 7.5 mg PO DAILY 02/21/14 Magnesium Oxide [Mgo] 400 mg PO BID 12/25/17 Umeclidinium Brm/Vilanterol Tr 1 puff INHALATION QHS 12/25/17 [Anoro Ellipta 62.5-25 Mcg INH] Amlodipine [Norvasc] 5 mg PO DAILY 12/30/17 Atorvastatin Calcium 80 mg PO DAILY 12/30/17 Carvedilol 25 mg PO BID 12/30/17 Surgical History: coronary bypass surgery, - - Renal transplantation x 2, bladder surgery, pericardial window secondary to renal failure, aVF bilateral upper extremity, CABG x4. Psychiatric History: Anxiety, Depression Lives: Spouse/ Significant Other Smoking Status: Former smoker - Quit cigarette tobacco usage approximately 10 years prior with prior to this 1.5 pack/day since teenager. Tobacco Use: Non-smoker Alcohol: None Drugs: None - *Family History Maternal History Items: Hypertension Paternal History Items: Hypertension Sibling History Items: No pertinent history Review of Systems Constitutional: Reports: Anorexia, Chills, Fever, Malaise, Weakness, Fatigue. Denies: Weight Change HEENT: Reports: Sore Throat. Denies: Head Aches, Sinus Congestion, Sinus Drainage Cardiovascular: Denies: Chest Pain, Palpitations Respiratory: Reports: Cough, Pleuritic Pain, Shortness of Breath, Shortness of breath at rest, Shortness of breath upon exertion. Denies: Sputum production Gastrointestinal: Denies: Abdominal Pain, Nausea, Vomiting Genitourinary: Denies: Dysuria Musculoskeletal: Reports: Back Pain, Joint Pain, Muscle pain. Denies: Joint Tenderness Skin: Denies: Rash, Wounds Neurological: Denies: Numbness, Tingling, Focal weakness Psychiatric: Reports: Anxiety, Depression. Denies: Homicidal Ideations, Suicidal Ideations Hematologic/ Lymphatic: Reports: Anemia. Denies: Easy Bruising, Easy Bleeding VTE Information - Inpt Only VTE Present on Admission: No VTE Mechan Device Prophylaxis: SCD's VTE Pharm Prophylaxis ordered?: Yes Patient Problems: Active and Suspected Problems Pneumonia (Acute) Subjective: Seated upright in ED bed, fatigued and ill-appearing, dry cough during examination. Objective: Physical Examination: General: awake, alert, oriented x 3 and cooperative, seated upright in the ED bed in no apparent distress, fatigued appearance. Skin: normal color, turgor, no icterus, cyanosis. HEENT: AT/NC, EOMI, PERRLA, dry MM, no carotid bruits or JVD noted. Lungs: Diminished breath sounds bilaterally, greater bases, poor effort as pleuritic discomfort with deep inspiratory effort, no rales, ronchi or wheezing. Heart: Regular rate and rhythm; no gallop, rub audible. Abdomen: soft, NTTP, ND, normal BS, no HSM. Extremities: no cyanosis, clubbing, or edema. Neurological: patient awake, alert, oriented x 3; cognitive function intact; pupils equally reactive to light and accomodation; cranial nerves II-XII grossly normal, moving all 4 extremities, no focal deficits, strength moderately to severely global decrease secondary to acute presentation. Psychiatric: affect appears fatigued, no acute evidence of depressive or anxiety feelings. - Physical Exam Vital Signs Temp Pulse Resp BP Pulse Ox 98.7 F 64 16 93/54 L 93 07/22/19 05:00 07/22/19 05:00 07/22/19 05:00 07/22/19 05:00 07/22/19 05:00 Oxygen Flow Rate (L/min) 2 Oxygen Delivery Method Nasal Cannula Weight: 136 lb 7.458 oz Body Mass Index (BMI) 22.6 Laboratory Tests Past 24 Hrs 07/22/19 07/22/19 07/22/19 02:58 02:58 02:58 WBC 4.7 RBC 3.83 L Hgb 11.4 L Hct 34.4 L MCV 89.8 MCH 29.8 MCHC 33.1 RDW Std Deviation 43.8 RDW Coeff of Adam[place] 13.3 Plt Count 72 L MPV 10.6 Immature Gran % (Auto) 0.200 Neut % (Auto) 76.1 H Lymph % (Auto) 12.0 L [place] % (Auto) 10.9 H Eos % (Auto) 0.4 Baso % (Auto) 0.4 Absolute Neuts (auto) 3.6 Absolute Lymphs (auto) 0.56 L Nucleated RBC % 0 Differential Comment SCANNED PT 13.9 INR 1.1 APTT 37.7 H D-Dimer Quant (PE/DVT) 1.05 H* Sodium 136 Potassium 4.5 Chloride 106 Carbon Dioxide 23.0 Anion Gap 7 BUN 39 H Creatinine 2.28 H Estim Creat Clear Calc 33.72 Est GFR (MDRD) Af Amer 39 L Est GFR (MDRD) Non-Af 32 L BUN/Creatinine Ratio 17.1 Glucose 124 H Lactic Acid Calcium 9.2 Total Bilirubin 0.60 AST 22 ALT 19 Alkaline Phosphatase 67 Troponin I < 0.015 Total Protein 6.3 L Albumin 3.5 Globulin 2.8 Albumin/Globulin Ratio 1.2 07/22/19 02:58 WBC RBC Hgb Hct MCV MCH MCHC RDW Std Deviation RDW Coeff of Adamaris Plt Count MPV Immature Gran % (Auto) Neut % (Auto) Lymph % (Auto) [place] % (Auto) Eos % (Auto) Baso % (Auto) Absolute Neuts (auto) Absolute Lymphs (auto) Nucleated RBC % Differential Comment PT INR APTT D-Dimer Quant (PE/DVT) Sodium Potassium Chloride Carbon Dioxide Anion Gap BUN Creatinine Estim Creat Clear Calc Est GFR (MDRD) Af Amer Est GFR (MDRD) Non-Af BUN/Creatinine Ratio Glucose Lactic Acid 0.9 Calcium Total Bilirubin AST ALT Alkaline Phosphatase Troponin I Total Protein Albumin Globulin Albumin/Globulin Ratio Assessment/Plan All Active Problems Troponin I above reference range (Acute) Abnormal EKG (Acute) Abdominal pain (Acute) Pneumonia (Acute) Acute diarrhea (Acute) The patient is a 49-year-old female with past medical history of chronic thr ombocytopenia, hypertension, hyperlipidemia, CKD stage III, Chronic normocytic anemia, Hx ESRD s/p Renal Transplant x 2, Seizure history w/ ESRD now resolved, CAD s/p CABG x 4, Chronic COPD, Anxiety and Depression, Chronic back pain, History of remote PE (15-20 years prior) who presents to the [facility] ED on 07/22/19 with history of picking to feel poorly with malaise, fatigue, arthralgias, myalgias approximately 4 days prior with dry cough and dyspnea which progressively worsening. 1. Community Acquired Pneumonia, ? Viral pneumonia: Work-up in the ED included T 99, heart rate 63, BP 90/53, respiratory rate 18, 92 6% on 2 L nasal cannula, CBC with WBC 4.7, hemoglobin 11.4, platelets 72 without market evidence of left shift, coags with PTT 37.7, d-dimer 1.05, CMP with BUN/creatinine 39/2.28, glucose 124, lactic acid 0.9, troponin less than 0.015, Blood culture x2 pending per ED, chest x-ray patchy left lung base opacities and indistinct hemidiaphragm likely due to underlying chronic lung changes with prior detected pleural-based calcifications similar to prior chest x-ray, CT chest with mild scattered patchy bilateral lung opacities with tree-in-bud nodularity suspicious for infectious bronchopneumonia with stable left lung base scarring and pleural-based calcification, status post median sternotomy and CABG. Will admit to [facility], maintain on oxygen with wean as tolerated to room air, continue ATC duonebs, PRN albuterol, maintained on IV Rocephin and Azithromycin, HOB, IS parameters w/ pending sputum cultures and urine antigens. Bld cx x 2 obtained in the ED. 2. CAD: Status post CABG times 01/2006, maintain on aspirin, Coreg, statin therapy. 3. Renal transplant status: History of end-stage renal disease as noted with renal transplant x2 in 1993 and most recently in 2009, maintain on mycophenolate, prednisone, prophylactic Bactrim regimen. 4. Chronic COPD: Will maintain on oxygen with wean as tolerated to room air, continue ATC duonebs, PRN albuterol, HOB, IS parameters. 5. Chronic thrombocytopenia: Admission platelet 72, baseline appears 121 10-1 20, trend. 6. Chronic normocytic anemia/AOCD: Admission hemoglobin 11.4, baseline appears similar, trend. 7. Chronic Kidney Disease Stage III w/ Hx prior ESRD: Admission BUN/Cr 39/2.28, baseline renal function 1.9-2.1, stable, repeat BMP in AM, prior BL AVF with BPs to LE. 8. Hypertension: Continue home regimen including Norvasc, Coreg, doxazosin, PRN hydralazine. 9. History of PE: Patient with remote history of pulmonary embolism, denies any provoked history, given current presentation with evidence of infiltrates suspect pneumonia with pleuritic pain as etiology for current chest discomfort, d-dimer was elevated but patient has underlying renal disease. 10. DVT Prophylaxis: SCDs, heparin. Code Visit Inpatient E&M: 91169 Init Hosp L3
--- NOTE | 2019-07-22 09:13 | PN_ITS ---
Patient Problems: Active and Suspected Problems Pneumonia (Acute) Subjective: Just came to the floor, so no immediate changes noted. Vitals/I&O's: Vital Signs Temp Pulse Resp BP Pulse Ox 37.2 C 63 24 H 85/46 L 94 07/22/19 06:57 07/22/19 06:57 07/22/19 07:57 07/22/19 06:57 07/22/19 06:57 Oxygen Flow Rate (L/min) 2 Oxygen Delivery Method Nasal Cannula Weight: 63 kg Body Mass Index (BMI) 23.1 Intake and Output for Last 24 Hours 07/20/19 07/21/19 07/22/19 23:59 23:59 23:59 Intake Total 305 / 305 Balance 305 / 305 General: Alert, - - awoke easily. HEENT: Atraumatic, Normocephalic Oral: Moist Mucosa, No Gingival or Mucosal Lesions/ Ulcerations Neck: No Nodes, Thyroid Normal Size and Texture Lungs: - - coarse breath sounds bilatarally. Cardiovascular: Regular rate, Regular Rhythm, Normal S1, Normal S2 Abdomen: Bowel Sounds Present, Soft, Non Tender, Non-Distended Extremities: No edema, No Calf Tenderness Skin: No rashes, No breakdown Psych/Mental Status: Normal Affect, Appropriate Laboratory Results 07/22/19 02:58: WBC 4.7, RBC 3.83 L, Hgb 11.4 L, Hct 34.4 L, MCV 89.8, MCH 29.8, MCHC 33.1, RDW Std Deviation 43.8, RDW Coeff of Adamaris 13.3, Plt Count 72 L, MPV 10.6, Immature Gran % (Auto) 0.200, Neut % (Auto) 76.1 H, Lymph % (Auto) 12.0 L, [place] % (Auto) 10.9 H, Eos % (Auto) 0.4, Baso % (Auto) 0.4, Absolute Neuts (auto) 3.6, Absolute Lymphs (auto) 0.56 L, Nucleated RBC % 0, Differential Comment SCANNED 07/22/19 02:58: PT 13.9, INR 1.1, APTT 37.7 H, D-Dimer Quant (PE/DVT) 1.05 H* 07/22/19 02:58: Sodium 136, Potassium 4.5, Chloride 106, Carbon Dioxide 23.0, Anion Gap 7, BUN 39 H, Creatinine 2.28 H, Estim Creat Clear Calc 33.72, Est GFR (MDRD) Af Amer 39 L, Est GFR (MDRD) Non-Af 32 L, BUN/Creatinine Ratio 17.1, Glucose 124 H, Calcium 9.2, Total Bilirubin 0.60, AST 22, ALT 19, Alkaline Phosphatase 67, Troponin I < 0.015, Total Protein 6.3 L, Albumin 3.5, Globulin 2.8, Albumin/Globulin Ratio 1.2 07/22/19 02:58: Lactic Acid 0.9 Current Medications Sodium Chloride () 1,000 mls @ 150 mls/hr IV .[id number] MARY ELLEN Last Admin: 07/22/19 02:45 Dose: 150 mls/hr Documented by: Sodium Chloride () 250 mls @ 15 mls/hr IV .[id number] PRN PRN Reason: SALINE FLUSH Nutritional Formula (Nepro Carb Steady) 120 ml PO 4X/DAY MARY ELLEN Sodium Chloride () 5 - 15 ml IV UD PRN PRN Reason: SALINE FLUSH STROKE Vital Signs/Narrative: Vital Signs Temp Pulse Resp BP Pulse Ox 07/22/19 07:57 24 H 07/22/19 06:57 37.2 C 63 18 85/46 L 94 07/22/19 06:02 36.4 C L 66 21 H 95/70 94 07/22/19 06:01 66 21 H 95/70 94 07/22/19 05:51 36.4 C L 129 H 22 H 93/45 L 92 Medical Necessity - Tobacco Use Smoking Status: Former smoker Tobacco Use: Non-smoker Assessment/Plan All Active Problems Troponin I above reference range (Acute) Abnormal EKG (Acute) Abdominal pain (Acute) Pneumonia (Acute) Acute diarrhea (Acute) 1. Suspected pneumococcal pneumonia * on azithromycin and ctx * pulm toilet 2. s/p renal Xplant * immunosuppressants make patient supectible to infection * continue mycophenolate and prednisone * continue TMP/SMX for PJP prophylaxis 3. VTE proph: SQ heparin. Code Visit Procedures: Other Procedure - See Report - non-billable rounding
--- NOTE | 2019-07-22 11:42 | CASEMGMT ---
SW met w/pt and , who is at the bedside. Pt not feeling well at present, conversation kept brief. PCP: Dr. Tate Specialists: Dr. Arboleda, renal physician Preferred Pharmacy: [facility] in [place], gets to prescriptions by mail. Insurance/Prescription benefit: [place] [facility] Will/POA: Forms given with information to call this SW should pt feel up for completing, otherwise SW dept number also given to pt if he would like to complete the forms after hospitalization, to call to make an appointment. LNOK/Living arrangements: Lives home w/, one story home, a few steps to get into the home. Transportation/ADLs: Pt is fully independent at home, drives DME/HHC: Pt uses no DME, no history of home health care Plan: At this time, plan will be for home w/, no homegoing needs are anticipated. SW/CM available should any needs arise. FEI Rodrigez
[2019-07-22] MEDS: Acetaminophen 325 MG Tablet 650 MG PO ×2 (11:43→17:43)
[2019-07-22] MEDS: Heparin Injection (Vial) 5,000 UNIT/ML VIAL 5000 UNIT SC ×2 (11:43→22:24)
[2019-07-22] MEDS: guaiFENesin 600 MG Tablet PO ×2 (11:43→22:24)
[2019-07-22] MEDS: Magnesium Oxide 400 MG Tablet PO ×2 (11:44→22:24)
[2019-07-22] MEDS: Aspirin 81 MG TAB.CHEW PO (11:44)
[2019-07-22] MEDS: predniSONE 5 MG Tablet 7.5 MG PO (11:56)
[2019-07-22] MEDS: Pantoprazole Sodium 20 MG Tablet PO (11:56)
[2019-07-22 13:09] LABS: Bacteria 0 SEEN /hpf (None Seen); Mucous, Urine 0 SEEN /hpf (<or=2+); Red Blood Cells-Urine 0 SEEN /hpf (0-5); Squamous Epithelial Cells - UA 0 SEEN /hpf (0-5); White Blood Cells 0 SEEN /hpf (0-5)
[2019-07-22 13:12] LABS: Color, Urine Yellow (Yellow); Glucose, Dipstick Normal (Normal); Ketone-Dipstick Negative (Negative); Leukocyte Esterase-Dipstick Negative /ul (Negative); Nitrite-Dipstick Negative (Negative); Occult Blood-Urine Negative /ul (Negative); Protein-Dipstick Negative (Negative); Urine Bilirubin Dipstick Negative (Negative); Urine Clarity Clear (Clear); Urine Urobilinogen Normal (Normal)
[2019-07-22] MEDS: Mycophenolate Mofetil 250 MG Capsule PO ×2 (13:36→22:24)
[2019-07-22] MEDS: Smz/Tmp Ds Tablet 0.5 TABLET PO (13:36)
[2019-07-22] MEDS: Morphine 2 MG/ML Syringe IV ×2 (13:40→19:04)
[2019-07-22] MEDS: 0.9% NaCl Peripheral Flush Adult/Peds IV ×2 (13:41→19:04)
[2019-07-22] MEDS: Carvedilol 25 MG Tablet PO (22:24)
[2019-07-22] MEDS: Atorvastatin Calcium 80 MG Tablet PO (22:24)
[2019-07-23] VITALS (10 sets, daily range): BP systolic 106–143; BP diastolic 49–87; PULSE 60–70; RESP 16–20; TEMP 36.5–36.9; O2SAT 90–96
[2019-07-23] MEDS: Morphine 2 MG/ML Syringe IV ×2 (01:35→08:34)
[2019-07-23] MEDS: 0.9% Normal Saline 1,000 ML 150 ML IV ×2 (02:38→10:53)
[2019-07-23] MEDS: guaiFENesin 10 ML UDC (200MG/10ML) PO ×2 (04:38→09:26)
[2019-07-23] MEDS: Albuterol 2.5 MG/3 ML VIAL.NEB. INHALATION ×2 (05:04→21:54)
[2019-07-23 06:30] LABS: Anion Gap 4 (5-15); BUN 26 mg/dL (7-18); BUN/Creat Ratio 16.9 RATIO (10-20); Calcium,Total 8.6 mg/dL (8.5-10.1); Chloride 113 mmol/L (98-107); Creatinine, Serum 1.54 mg/dL (0.70-1.30); EST Glomerular Filtration Rate 51 mL/min (>60); Est Glom Filt Rate - Afr Amer 62 mL/min (>60); Estimated Creatinine Clearance 49.92 ml/min; Glucose 88 mg/dL (74-106); Potassium 4.9 mmol/L (3.5-5.1); Sodium Level 136 mmol/L (136-145)
[2019-07-23] MEDS: Ipratropium/Albuterol Sulfate 3 ML AMPUL.NEB INHALATION ×4 (07:19→19:13)
[2019-07-23] MEDS: 0.9% NaCl Peripheral Flush Adult/Peds IV (08:34)
[2019-07-23] MEDS: Aspirin 81 MG TAB.CHEW PO (08:57)
[2019-07-23] MEDS: Smz/Tmp Ds Tablet 0.5 TABLET PO (08:59)
[2019-07-23] MEDS: predniSONE 5 MG Tablet 7.5 MG PO (08:59)
[2019-07-23] MEDS: Doxazosin 4 MG Tablet 8 MG PO (09:00)
[2019-07-23] MEDS: Magnesium Oxide 400 MG Tablet PO ×2 (09:01→22:49)
[2019-07-23] MEDS: Mycophenolate Mofetil 250 MG Capsule PO ×2 (09:01→22:49)
[2019-07-23] MEDS: amLODIPine 5 MG Tablet PO (09:06)
[2019-07-23] MEDS: Pantoprazole Sodium 20 MG Tablet PO (09:07)
[2019-07-23] MEDS: Ceftriaxone 1 GM/50 ML BAG IV (09:26)
[2019-07-23] MEDS: Heparin Injection (Vial) 5,000 UNIT/ML VIAL 5000 UNIT SC ×2 (09:27→22:50)
[2019-07-23] MEDS: Acetaminophen 500 MG Tablet 1000 MG PO ×2 (10:56→23:12)
[2019-07-23] MEDS: cycloBENZAPRine HCl 5 MG TABLET PO (10:57)
[2019-07-23] MEDS: Lidocaine 5% Patch 1 PATCH TOPICAL (10:58)
--- NOTE | 2019-07-23 13:09 | PCM.PN.HOSP ---
Patient Problems: Active and Suspected Problems Pneumonia (Acute) Subjective: Still feels sick. Complains of back pain. Vitals/I&O's: Vital Signs Temp Pulse Resp BP Pulse Ox 36.6 C 70 18 116/55 L 96 07/23/19 08:00 07/23/19 11:22 07/23/19 11:22 07/23/19 08:00 07/23/19 11:22 Oxygen Flow Rate (L/min) 2 Oxygen Delivery Method Nasal Cannula Weight: 63 kg Body Mass Index (BMI) 23.1 Intake and Output for Last 24 Hours 07/21/19 07/22/19 07/23/19 23:59 23:59 23:59 Intake Total 4094.5 / 4694.5 3377.5 / 3377.5 Output Total 1190 / 1190 Balance 2904.5 / 3504.5 3377.5 / 3377.5 General: Alert, No apparent distress HEENT: Atraumatic, Normocephalic Oral: Moist Mucosa, No Gingival or Mucosal Lesions/ Ulcerations Neck: No Nodes, Thyroid Normal Size and Texture Lungs: Normal air movement, - - coarse breath sounds Cardiovascular: Regular rate, Regular Rhythm, Normal S1, Normal S2 Abdomen: Bowel Sounds Present, Soft, Non Tender, Non-Distended Extremities: No edema, No Calf Tenderness Skin: No rashes, No breakdown Musculoskeletal: No Tenderness to Palpation of Joints or Extremities, No Muscle Wasting Psych/Mental Status: Appropriate, Flat Affect Microbiology Past 72 Hours 07/22/19 14:24 Mucosa - Nasopharyngeal Respiratory Panel (PCR) - Final Parainfluenza 1 07/22/19 13:00 Urine, Clean Catch Streptococcus pneumoniae Antigen (M - Final 07/22/19 13:00 Urine, Clean Catch Legionella Antigen - Final Laboratory Results 07/22/19 13:00: Urine Color Yellow, Urine Clarity Clear, Urine pH 6.0, Ur Specific [place] 1.010, Urine Protein Negative, Urine Glucose (UA) Normal, Urine Ketones Negative, Urine Occult Blood Negative, Urine Nitrite Negative, Urine Bilirubin Negative, Urine Urobilinogen Normal, Ur Leukocyte Esterase Negative, Urine RBC 0 SEEN, Urine WBC 0 SEEN, Ur Squamous Epith Cells 0 SEEN, Urine Bacteria 0 SEEN, Urine Mucus 0 SEEN 07/23/19 05:54: Sodium 136, Potassium 4.9, Chloride 113 H, Carbon Dioxide 19.0 L, Anion Gap 4 L, BUN 26 H, Creatinine 1.54 H, Estim Creat Clear Calc 49.92, Est GFR (MDRD) Af Amer 62, Est GFR (MDRD) Non-Af 51 L, BUN/Creatinine Ratio 16.9, Glucose 88, Calcium 8.6 Current Medications Acetaminophen (Tylenol) 1,000 mg PO Q8 [facility] Last Admin: 07/23/19 10:56 Dose: 1,000 mg Documented by: Al Hydroxide/Mg Hydroxide (Mylanta Ii) 15 - 30 ml PO Q4H PRN PRN PRN Reason: INDIGESTION Albuterol Sulfate (Ventolin Aerosols) 2.5 mg INHALATION Q2H PRN PRN PRN Reason: dyspnea, wheezing Last Admin: 07/23/19 05:04 Dose: 2.5 mg Documented by: Albuterol/Ipratropium (Duoneb) 3 ml INHALATION Q4HWA.RT [facility] Last Admin: 07/23/19 11:22 Dose: 3 ml Documented by: Amlodipine Besylate (Norvasc) 5 mg PO DAILY [facility] Last Admin: 07/23/19 09:06 Dose: 5 mg Documented by: Aspirin (Aspirin, Baby) 81 mg PO DAILYCM [facility] Last Admin: 07/23/19 08:57 Dose: 81 mg Documented by: Atorvastatin Calcium (Lipitor) 80 mg PO QHS [facility] Last Admin: 07/22/19 22:24 Dose: 80 mg Documented by: Carvedilol (Coreg) 25 mg PO BID [facility] Last Admin: 07/23/19 09:07 Dose: Not Given Documented by: Cyclobenzaprine HCl (Cyclobenzaprine Hcl) 5 mg PO TID PRN PRN PRN Reason: MUSCLE SPASM Last Admin: 07/23/19 10:57 Dose: 5 mg Documented by: Dextrose (D50w Syringe) 0 gm IV X1 PRN; Protocol PRN Reason: Hypoglycemia Doxazosin Mesylate (Cardura) 8 mg PO DAILY [facility] Last Admin: 07/23/19 09:00 Dose: 8 mg Documented by: Glucagon () 1 mg IM .X1 PRN PRN Reason: Hypoglycemia Guaifenesin (Robitussin) 10 ml PO Q4H PRN PRN PRN Reason: COUGH Last Admin: 07/23/19 09:26 Dose: 10 ml Documented by: Heparin Sodium (Porcine) (Heparin Na) 5,000 unit SC Q12 [facility] Last Admin: 07/23/19 09:27 Dose: 5,000 unit Documented by: Hydralazine HCl (Apresoline Iv) 10 mg IV Q4H PRN PRN PRN Reason: SBP > 160 Sodium Chloride () 1,000 mls @ 150 mls/hr IV .Q6H40M [facility] Last Infusion: 07/23/19 11:54 Dose: 150 mls/hr Documented by: Sodium Chloride () 250 mls @ 15 mls/hr IV .[id number] PRN PRN Reason: SALINE FLUSH Azithromycin 500 mg/ Dextrose 255 mls @ 250 mls/hr IV Q24 [facility] Stop: 07/25/19 11:02 Last Infusion: 07/23/19 11:54 Dose: Infused Documented by: Ceftriaxone Sodium (Rocephin) 1 gm in 50 mls @ 100 mls/hr IV Q24 [facility] Last Infusion: 07/23/19 09:56 Dose: Infused Documented by: Lidocaine (Lidoderm Patch) 1 patch TOPICAL DAILY [facility]; Protocol Last Admin: 07/23/19 10:58 Dose: 1 patch Documented by: Magnesium Hydroxide (Milk Of Magnesia) 30 ml PO DAILY PRN PRN Reason: Constipation Magnesium Oxide (Mag-Ox 400) 400 mg PO BID [facility] Last Admin: 07/23/19 09:01 Dose: 400 mg Documented by: Melatonin (Melatonin) 3 mg PO QHS PRN PRN PRN Reason: INSOMNIA Mycophenolate Mofetil (Cellcept) 250 mg PO BID [facility] Last Admin: 07/23/19 09:01 Dose: 250 mg Documented by: Nitroglycerin (Nitrostat) 0.4 mg SUBLINGUAL Q5M PRN PRN Reason: CARDIAC/CHEST PAIN Nutritional Formula (Nepro Carb Steady) 120 ml PO 4X/DAY [facility] Last Admin: 07/23/19 09:02 Dose: Not Given Documented by: Ondansetron HCl (Zofran) 4 mg IV Q8H PRN PRN PRN Reason: NAUSEA/VOMITING Pantoprazole Sodium (Protonix) 20 mg PO DAILY [facility] Last Admin: 07/23/19 09:07 Dose: 20 mg Documented by: [facility] () [facility] Last Admin: 07/23/19 08:59 Dose: 7.5 mg Documented by: Sodium Chloride () 5 - 15 ml IV UD PRN PRN Reason: SALINE FLUSH Last Admin: 07/23/19 08:34 Dose: 10 ml Documented by: Trimethoprim/Sulfamethoxazole (Bactrim Ds) 0.5 tablet PO DAILYCM MARY ELLEN Last Admin: 07/23/19 08:59 Dose: 0.5 tablet Documented by: STROKE Vital Signs/Narrative: Vital Signs Pulse Resp Pulse Ox 07/23/19 11:22 70 18 96 Medical Necessity - Tobacco Use Smoking Status: Former smoker Tobacco Use: Non-smoker Assessment/Plan All Active Problems Troponin I above reference range (Acute) Abnormal EKG (Acute) Abdominal pain (Acute) Pneumonia (Acute) Acute diarrhea (Acute) 1. Suspected pneumococcal pneumonia fever resolved on azithromycin and ctx pulm toilet complicated by parainfluenza viral infection. 2. s/p renal Xplant immunosuppressants make patient supectible to infection continue mycophenolate and prednisone continue TMP/SMX for PJP prophylaxis 3. Back pain secondary to muscle strain DC morphine acetaminophen, cyclobenzaprine and lidocaine patch 4. VTE proph: SQ heparin. Code Visit Inpatient E&M: 31157 Subs Hosp L2
[2019-07-23] MEDS: Carvedilol 25 MG Tablet PO (22:49)
[2019-07-23] MEDS: Atorvastatin Calcium 80 MG Tablet PO (22:50)
[2019-07-23] MEDS: guaiFENesin 600 MG Tablet PO (22:50)
[2019-07-24] VITALS (8 sets, daily range): BP systolic 128–135; BP diastolic 63–68; PULSE 56–74; RESP 18–20; TEMP 36.6–37; O2SAT 92–99
[2019-07-24] MEDS: Ipratropium/Albuterol Sulfate 3 ML AMPUL.NEB INHALATION ×3 (02:34→10:43)
[2019-07-24] MEDS: Acetaminophen 500 MG Tablet 1000 MG PO ×2 (06:07→13:13)
[2019-07-24] MEDS: 0.9% NaCl IVPB Med Flush (250 mL) 15 ML IV (06:10)
[2019-07-24] MEDS: Smz/Tmp Ds Tablet 0.5 TABLET PO (09:00)
[2019-07-24] MEDS: predniSONE 5 MG Tablet 7.5 MG PO (09:01)
[2019-07-24] MEDS: Aspirin 81 MG TAB.CHEW PO (09:05)
[2019-07-24] MEDS: guaiFENesin 600 MG Tablet PO (10:50)
[2019-07-24] MEDS: Magnesium Oxide 400 MG Tablet PO (10:50)
[2019-07-24] MEDS: Heparin Injection (Vial) 5,000 UNIT/ML VIAL 5000 UNIT SC (10:50)
[2019-07-24] MEDS: Mycophenolate Mofetil 250 MG Capsule PO (10:51)
[2019-07-24] MEDS: amLODIPine 5 MG Tablet PO (10:51)
[2019-07-24] MEDS: Pantoprazole Sodium 20 MG Tablet PO (10:51)
[2019-07-24] MEDS: Lidocaine 5% Patch 1 PATCH TOPICAL (10:52)
[2019-07-24] MEDS: Doxazosin 4 MG Tablet 8 MG PO (10:52)
[2019-07-24] MEDS: Carvedilol 25 MG Tablet PO (10:52)
--- NOTE | 2019-07-24 11:42 | DCINST_ITS ---
- Discharge Diagnoses Current Active Problems: Current Active and Chronic Problems Pneumonia (Acute) You will use the following diet at home:: No restrictions Your food should be the consistency of: Regular Discharge Activity: Return to Normal Activity Return to work on:: 07/29/19 Call your doctor if you observe: Fever of 101 or Higher, Shortness of breath Additional Instructions: Resume Prednisone 7.5mg daily dosing when you have completed the tapering dose Prednisone. Allergies/Adverse Reactions: Allergies acetaminophen [From Darvocet-N] Allergy (Verified 07/22/19 02:31) Hives propoxyphene napsylate [From Darvocet-N] Allergy (Verified 07/22/19 02:31) Hives venom-honey bee [bee venom (honey bee)] Allergy (Verified 07/22/19 02:31) Hives Medications to take at Discharge Aspirin [Aspirin, Baby] 81 mg PO DAILY 02/21/14 Doxazosin Mesylate [Cardura] 8 mg PO DAILY 02/21/14 Mycophenolate Mofetil [Cellcept] 250 mg PO BID 02/21/14 Omeprazole [Prilosec] 20 mg PO DAILY 02/21/14 Sulfamethoxazole/Trimethoprim [Bactrim 400-80 mg Tablet] 1 tablet PO DAILY 02/21/14 predniSONE tablet 7.5 mg PO DAILY 02/21/14 Magnesium Oxide [Mgo] 400 mg PO BID 12/25/17 Umeclidinium Brm/Vilanterol Tr [Anoro Ellipta 62.5-25 Mcg INH] 1 puff INHALATION QHS 12/25/17 Amlodipine [Norvasc] 5 mg PO DAILY 12/30/17 Atorvastatin Calcium 80 mg PO DAILY 12/30/17 Carvedilol 25 mg PO BID 12/30/17 Acetaminophen [Tylenol] 1,000 mg PO Q8 tablet 07/24/19 Albuterol Inhaler [Ventolin Hfa] 1 - 2 puff INHALATION Q4H PRN PRN #1 inhaler 07/24/19 Amoxicillin [Amoxil] 1,000 mg PO Q8H #15 cap 07/24/19 Guaifenesin [Mucinex] 600 mg PO BID #10 tab 07/24/19 Lidocaine 4% Topical [Xylocaine Topical] 50 ml TOPICAL BID PRN #1 bottle 07/24/19 Prednisone 10 mg PO DAILY #30 tab.ds.pk 07/24/19 cycloBENZAPRine HCl [Cyclobenzaprine HCl] 5 mg PO TID PRN PRN #15 tab 07/24/19 The following prescriptions were given: Amoxicillin [Amoxil] 1,000 mg PO Q8H #15 cap Transmission Status: Pending to [id number] cycloBENZAPRine HCl [Cyclobenzaprine HCl] 5 mg PO TID PRN PRN #15 tab PRN Reason: Muscle Spasm Transmission Status: Pending to [id number] Guaifenesin [Mucinex] 600 mg PO BID #10 tab Transmission Status: Pending to [id number] Prednisone 10 mg PO DAILY #30 tab.ds.pk Transmission Status: Pending to [id number] Albuterol Inhaler [Ventolin Hfa] 1 - 2 puff INHALATION Q4H PRN PRN #1 inhaler PRN Reason: Shortness Of Breath Transmission Status: Pending to [id number] Lidocaine 4% Topical [Xylocaine Topical] 50 ml TOPICAL BID PRN #1 bottle PRN Reason: pain Transmission Status: Pending to [id number] Primary Care Physician: Diana Tate PA [Primary Care Provider] - Within 1 Week Test Results: Test results from this visit will be discussed in further detail at your follow- up appointment, if applicable. Please Follow Up With: John Khan - kidney transplant physician When: next scheduled appointment Proposed Discharge Date: 07/24/19
--- NOTE | 2019-07-24 11:44 | PCM.DC.SUM ---
Discharge Date and Diagnosis - Problem List Patient Problems: Active and Suspected Problems Pneumonia (Acute) Date of Admission: 07/22/19 Date of Discharge: 07/24/19 - Primary Discharge Diagnosis Active and Suspected Problems Pneumonia (Acute) 1. Suspected pneumococcal pneumonia 2. parainfluenza bronchitis 3. s/p renal Xplant 3. Back pain - Secondary Discharge Diagnosis Chronic Problems Chronic kidney disease, stage 3 (Chronic) Renal transplant recipient (Chronic) Immunosuppressed status (Chronic) History of heart bypass surgery (Chronic) Aortic insufficiency (Chronic) Hypercholesterolemia (Chronic) Hypertension (Chronic) Chronic obstructive pulmonary disease (COPD) (Chronic) VIC (obstructive sleep apnea) (Chronic) Anxiety and depression (Chronic) Hypertension (Chronic) Coronary artery disease (Chronic) History of renal transplant (Chronic) Hospital Course and Treatment Imaging Results: Clinical Impression(s) from Imaging Studies Chest X-Ray 07/22/19 02:44 IMPRESSION: Patchy left lung base opacities and indistinct hemidiaphragm likely due to underlying chronic lung changes and prior detected pleural based calcifications. Findings appears similar to prior chest radiograph. Superimposed infectious process not excluded. Electronically Signed: Galindo Anthony, at 3:38 EDT Tel , Service support , Chest CT 07/22/19 04:09 IMPRESSION: Mild scattered patchy bilateral lung opacities with tree-in-bud nodularity likely due to underlying infectious bronchopneumonia. Follow-up to resolution recommended. Stable left lung base scarring and pleural-based calcification. Status post median sternotomy and CABG. Electronically Signed: Galindo Anthony, at 5:05 EDT Tel , Service support , Operations: None Procedures: None Summary of Care Provided: The patient is a 49 year old M Nighat with shortness of breath. Patient found to have a pneumonia. Respiratory panel came back showing parainfluenza. The patient had concomitant bacterial bronchitis but also a parainfluenza viral bronchitis. Patient will be on amoxicillin for antibiotics as well as patient is prednisone will be increased to tapering dose over the next couple weeks to resume his dosing at 7.5 mg daily. Patient also have an albuterol metered-dose inhaler to help with shortness of breath. Patient did have some back pain and attributable to his coughing and was musculoskeletal. That is improved with conservative measures. 1. Suspected pneumococcal pneumonia fever resolved change to amoxicillin complicated by parainfluenza viral infection. 2. parainfluenza bronchitis prednisone taper albuterol MDI check an ambulatory pulse ox prior to DC 3. s/p renal Xplant immunosuppressants make patient supectible to infection continue mycophenolate and prednisone continue TMP/SMX for PJP prophylaxis 3. Back pain secondary to muscle strain acetaminophen, cyclobenzaprine and lidocaine ointment (patch would be cost prohibitive) [] Patient Problems: Active and Suspected Problems Pneumonia (Acute) - Physical Exam General: Alert, No apparent distress HEENT: Atraumatic, Normocephalic Oral: Moist Mucosa, No Gingival or Mucosal Lesions/ Ulcerations Lungs: Diminished, Wheezes Cardiovascular: Regular rate, Regular Rhythm, Normal S1, Normal S2 Abdomen: Bowel Sounds Present, Soft, Non Tender, Non-Distended Vital Signs Temp Pulse Resp BP Pulse Ox 36.6 C 74 20 H 135/68 H 99 07/24/19 09:06 07/24/19 10:44 07/24/19 10:44 07/24/19 09:06 07/24/19 09:06 Oxygen Flow Rate (L/min) 1 Oxygen Delivery Method Nasal Cannula Weight: 63 kg Body Mass Index (BMI) 23.1 Intake and Output for Last 24 Hours 07/22/19 07/23/19 07/24/19 23:59 23:59 23:59 Intake Total 4094.5 / 4694.5 5175.0 / 5175.0 1313 / 1313 Output Total 1190 / 1190 1400 / 1400 2200 / 2200 Balance 2904.5 / 3504.5 3775.0 / 3775.0 -887 / -887 Microbiology Past 72 Hours 07/24/19 06:10 Gram Stain - Final Sputum, Expectorated/Coughed 07/22/19 03:10 Blood Culture - Preliminary Blood Culture (Wb) - Right Foot No growth in 48 hours. 07/22/19 02:58 Blood Culture - Preliminary Blood Culture (Wb) - Arm Right No growth in 48 hours. 07/22/19 14:24 Respiratory Panel (PCR) - Final Mucosa - Nasopharyngeal Parainfluenza 1 07/22/19 13:00 Streptococcus pneumoniae Antigen (M - Final Urine, Clean Catch 07/22/19 13:00 Legionella Antigen - Final Urine, Clean Catch Discharge Diet: No Restrictions Discharge Activity: Return to Normal Activity Return to work on:: 07/29/19 Call your doctor if you observe: Fever of 101 or Higher, Shortness of breath Home Medications: Medications to take at Discharge Aspirin [Aspirin, Baby] 81 mg PO DAILY 02/21/14 Doxazosin Mesylate [Cardura] 8 mg PO DAILY 02/21/14 Mycophenolate Mofetil [Cellcept] 250 mg PO BID 02/21/14 Omeprazole [Prilosec] 20 mg PO DAILY 02/21/14 Sulfamethoxazole/Trimethoprim [Bactrim 400-80 mg Tablet] 1 tablet PO DAILY 02/21/14 predniSONE tablet 7.5 mg PO DAILY 02/21/14 Magnesium Oxide [Mgo] 400 mg PO BID 12/25/17 Umeclidinium Brm/Vilanterol Tr [Anoro Ellipta 62.5-25 Mcg INH] 1 puff INHALATION QHS 12/25/17 Amlodipine [Norvasc] 5 mg PO DAILY 12/30/17 Atorvastatin Calcium 80 mg PO DAILY 12/30/17 Carvedilol 25 mg PO BID 12/30/17 Acetaminophen [Tylenol] 1,000 mg PO Q8 tablet 07/24/19 Albuterol Inhaler [Ventolin Hfa] 1 - 2 puff INHALATION Q4H PRN PRN #1 inhaler 07/24/19 Amoxicillin [Amoxil] 1,000 mg PO Q8H #15 cap 07/24/19 Guaifenesin [Mucinex] 600 mg PO BID #10 tab 07/24/19 Lidocaine 4% Topical [Xylocaine Topical] 50 ml TOPICAL BID PRN #1 bottle 07/24/19 Prednisone 10 mg PO DAILY #30 tab.ds.pk 07/24/19 cycloBENZAPRine HCl [Cyclobenzaprine HCl] 5 mg PO TID PRN PRN #15 tab 07/24/19 Following Prescrptions Were Given to Patient: Amoxicillin [Amoxil] 1,000 mg PO Q8H #15 cap Transmission Status: Pending to [facility]/pharmacy #[id number] cycloBENZAPRine HCl [Cyclobenzaprine HCl] 5 mg PO TID PRN PRN #15 tab PRN Reason: Muscle Spasm Transmission Status: [id number] Guaifenesin [Mucinex] 600 mg PO BID #10 tab Transmission Status: [id number] Prednisone 10 mg PO DAILY #30 tab.ds.pk Transmission Status: [id number] Albuterol Inhaler [Ventolin Hfa] 1 - 2 puff INHALATION Q4H PRN PRN #1 inhaler PRN Reason: Shortness Of Breath Transmission Status: [id number] Lidocaine 4% Topical [Xylocaine Topical] 50 ml TOPICAL BID PRN #1 bottle PRN Reason: pain Transmission Status: [id number] Primary Care Physician: Diana Tate PA [Primary Care Provider] - Within 1 Week Please Follow Up With: John Khan - kidney transplant physician When: next scheduled appointment Disposition: Home Minutes spent on discharge:: 32 Patient Condition:: Good Medical Necessity - Tobacco Use Smoking Status: Former smoker Tobacco Use: Non-smoker Meaningful Use Info Meaningful Use Diagnoses (Choose all that apply): None applicable Code Visit Inpatient E&M: 46852 Disch Hosp
[2019-07-24] MEDS: Ceftriaxone 1 GM/50 ML BAG IV (11:46)
--- NOTE | 2019-07-24 12:02 | PCA ---
Made apts for patient
--- NOTE | 2019-07-27 14:47 | CASEMGMT ---
JENNIFER CM DC PHONE CALL DC DATE: 07/24/19 DC Disposition: Home Diagnosis on Discharge: Pneumonia LACE/STRATA: 07/09 Attempted call to home phone. No answer and no message machine picked up. Peri MCGRATHN RN ACM
== END 2019-07-24 14:00 | disposition home or self-care (01) | DRG 190 ==
LOC: ED 05:25 → MS2 06:00 → MS3 07-23 15:43
PROVIDERS: Admitting Provider Family Medicine; Emergency Provider Emergency Medicine; Family Provider Physician Assistant; PCP Physician Assistant
DX: J44.0 Chronic obstructive pulmonary disease with (acute) lower respiratory infection (principal); J13 Pneumonia due to Streptococcus pneumoniae; J20.4 Acute bronchitis due to parainfluenza virus; Z94.0 Kidney transplant status; I12.9 Hypertensive chronic kidney disease with stage 1 through stage 4 chronic kidney disease, or unspecified chronic kidney disease; N18.3 Chronic kidney disease, stage 3 (moderate); D63.8 Anemia in other chronic diseases classified elsewhere; I25.10 Atherosclerotic heart disease of native coronary artery without angina pectoris; I35.1 Nonrheumatic aortic (valve) insufficiency; D69.6 Thrombocytopenia, unspecified; E78.5 Hyperlipidemia, unspecified; G47.33 Obstructive sleep apnea (adult) (pediatric); F32.9 Major depressive disorder, single episode, unspecified; F41.9 Anxiety disorder, unspecified; Z79.82 Long term (current) use of aspirin; Z79.899 Other long term (current) drug therapy; Z95.1 Presence of aortocoronary bypass graft; Z86.711 Personal history of pulmonary embolism; Z87.891 Personal history of nicotine dependence
CPT/HCPCS: 36415; 71045; 71250; 80048; 80053; 81001; 83605; 84484; 85025; 85379; 85610; 85730; 87040; 87070; 87205; 87449; 87633; 93005; 94640; 94667; 94668; 99285; J7030; J7050; A4216; J2405

== ENCOUNTER → 2019-10-20 07:07 | Outpatient (CLI) | payer BC, SELFPAY ==
[2019-10-20 07:07] VITALS: BMI 22.6
[2019-10-20 08:08] LABS: Protein, Urine (Random) 9.7 mg/dL (<11.9)
[2019-10-20 08:22] LABS: ALB/GLOB Ratio 1.4 RATIO (0.9-2.4); AST(SGOT) 17 U/L (15-37); Alanine Aminotransfer ALT/SGPT 27 U/L (16-61); Albumin, Serum 4.1 g/dL (3.2-5.0); Alkaline Phosphatase 88 U/L (45-117); Anion Gap 3 (5-15); BUN 25 mg/dL (7-18); BUN/Creat Ratio 14.9 RATIO (10-20); Calcium,Total 10.5 mg/dL (8.5-10.1); Chloride 104 mmol/L (98-107); Creatinine, Serum 1.68 mg/dL (0.70-1.30); EST Glomerular Filtration Rate 46 mL/min (>60); Est Glom Filt Rate - Afr Amer 56 mL/min (>60); Glucose 85 mg/dL (74-106); Potassium 4.1 mmol/L (3.5-5.1); Protein, Total 7.1 g/dL (6.4-8.2); Sodium Level 134 mmol/L (136-145)
[2019-10-20 08:27] LABS: Vitamin D,25 Hydroxy 25.5 ng/mL (29.95-100.01)
[2019-10-21 20:07] LABS: Free Kappa Light Chains 32.3 mg/L (3.3-19.4); Free Lambda Light Chains 19.7 mg/L (5.7-26.3)
[2019-10-21 20:55] LABS: Tacrolimus (FK506) 4.6 ng/mL (2.0-20.0)
[2019-10-22 14:10] LABS: Beta-2-Microglobulin, S 2.6 mg/L (0.6-2.4)
== END ==
LOC: LAB 07:08
PROVIDERS: Family Provider Physician Assistant; PCP Physician Assistant; Referring Provider Internal Medicine Nephrology; Visit Provider Internal Medicine Nephrology
DX: N18.3 Chronic kidney disease, stage 3 (moderate) (principal); Z48.22 Encounter for aftercare following kidney transplant
CPT/HCPCS: 36415; 80053; 80197; 82232; 82306; 82570; 83735; 83883; 83970; 84156

== ENCOUNTER → 2020-04-25 09:37 | Outpatient (CLI) | payer BC, SELFPAY ==
[2019-10-20 07:07] VITALS: BMI 22.6
[2020-04-25 10:26] LABS: Absolute Lymphocyte Count 1.25 X10^3/uL (0.83-4.51); Absolute Neutrophil Count 4.1 X10^3/uL (2.0-7.7); Basophil# 0.03 X10^3/uL; Basophil% 0.5 % (0-1); Eosinophils% 1.6 % (0-5); Hematocrit 38.5 % (40-54); Hemoglobin 12.3 g/dL (13.0-16.5); Lymphocyte # 1.25 X10^3/ul (4.0); Lymphocyte % 20.3 % (19-41); Mean Corp Hgb Conc 31.9 g/dL (32-36); Mean Corpuscular Hgb 29.5 pg (27.0-32.0); Mean Corpuscular Volume 92.3 fL (80-94); Monocyte# 0.63 X10^3/uL; Monocyte% 10.2 % (0-10); NRBC Flagged by Analyzer 0 % (0-5); Neutrophil # 4.14 X10^3/uL (2.7-7.7); Neutrophil % 67.2 % (47-70); Platelet Count 120 K/mm3 (150-450); RBC Distribution Width SD 46.9 fl (35.1-43.9); Red Blood Count 4.17 M/mm3 (4.6-6.2); White Blood Count 6.2 K/mm3 (4.4-11.0)
[2020-04-25 10:43] LABS: Vitamin D,25 Hydroxy 43.7 ng/mL
[2020-04-25 10:53] LABS: PTHIN 212.9 pg/mL (18.4-80.1)
[2020-04-25 11:01] LABS: ALB/GLOB Ratio 1.3 RATIO (0.9-2.4); AST(SGOT) 23 U/L (15-37); Alanine Aminotransfer ALT/SGPT 28 U/L (16-61); Albumin, Serum 3.9 g/dL (3.2-5.0); Alkaline Phosphatase 112 U/L (45-117); Anion Gap 3 (5-15); BUN 26 mg/dL (7-18); BUN/Creat Ratio 17.6 RATIO (10-20); Calcium,Total 9.5 mg/dL (8.5-10.1); Chloride 109 mmol/L (98-107); Cholesterol 112 mg/dL (200); Creatinine, Serum 1.48 mg/dL (0.70-1.30); EST Glomerular Filtration Rate 53 mL/min (>60); Est Glom Filt Rate - Afr Amer 64 mL/min (>60); Globulin 2.9 g/dL (2.2-4.2); Glucose 97 mg/dL (74-106); High Density Lipoprotein 60 mg/dL; Phosphorus 1.9 mg/dL (2.5-4.9); Potassium 4.3 mmol/L (3.5-5.1); Protein, Total 6.8 g/dL (6.4-8.2); Sodium Level 138 mmol/L (136-145); Triglycerides 95 mg/dL; Uric Acid 6.8 mg/dL (3.5-7.2); Very Low Density Lipoprotein 19 mg/dL (5-40)
[2020-04-25 11:35] LABS: Protein, Urine (Random) 10.7 mg/dL (<11.9); Protein:Creat Ratio 156 mg/g CRE (0-200)
[2020-04-27 09:33] LABS: Albumin 4.1 g/dL (2.9-4.4); Alpha-1-Globulins 0.2 g/dL (0.0-0.4); Alpha-2-Globulins 0.6 g/dL (0.4-1.0); Gamma Globulin 0.8 g/dL (0.4-1.8); Immunoglobulin A 87 mg/dL (90-386); Immunoglobulin G 882 mg/dL (603-1613); Immunoglobulin M 93 mg/dL (20-172); PROEL- TOTAL PROTEIN 6.4 g/dL (6.0-8.5)
[2020-04-27 15:36] LABS: Tacrolimus (FK506) 4.4 ng/mL (2.0-20.0)
== END ==
PROVIDERS: PCP Physician Assistant; Referring Provider Internal Medicine Nephrology; Visit Provider Internal Medicine Nephrology
DX: N18.3 Chronic kidney disease, stage 3 (moderate) (principal); E21.3 Hyperparathyroidism, unspecified; Z48.22 Encounter for aftercare following kidney transplant; E78.5 Hyperlipidemia, unspecified
CPT/HCPCS: 36415; 80053; 80061; 80197; 82306; 82570; 82784; 83735; 83970; 84100; 84156; 84165; 84550; 85025; 86334

== ENCOUNTER → 2020-05-30 17:49 | Outpatient (CLI) | payer BC, SELFPAY ==
[2019-10-20 07:07] VITALS: BMI 22.6
== END ==
PROVIDERS: PCP Physician Assistant
DX: Z20.828 Contact with and (suspected) exposure to other viral communicable diseases (principal); J02.9 Acute pharyngitis, unspecified; R50.9 Fever, unspecified; I25.10 Atherosclerotic heart disease of native coronary artery without angina pectoris; J44.9 Chronic obstructive pulmonary disease, unspecified
CPT/HCPCS: 87635; 94799; U0003

== ENCOUNTER 2022-01-24 15:45 | Emergency (ER) | payer BC, SELFPAY ==
[2022-01-24 15:46] VITALS: BP 152/84; PULSE 67; RESP 16; TEMP 36.8; O2SAT 98; BMI 23.9
--- NOTE | 2022-01-24 16:10 | EDS_ITS ---
HPI HPI - Fall History of Present Illness Chief Complaint: Fall Informant: patient Occured/Mechanism Occurred: Today Fall from Height (ft): 7 Usually ambulates: Without assistance Pain/Injury Location: Right shoulder/chest wall Quality of Pain: Aching Current Severity: Moderate Maximum Severity: Severe Worsened by: Moving right shoulder, palpating affected area Relieved by: Remaining still Associated Symptoms Associated Symptoms: Negative for Parasthesias, Weakness, Loss of function, Inability to ambulate, Loss of consciousness and Amnesia Narrative Narrative: Patient states he was at work, on a ladder and the ladder tipped over and he fell to the ground, from the feet to the ground before he fell was about 7 feet. He states the ladder hit the ground first, and then he hit his right upper chest wall/shoulder against the ladder which is his only injury. He has been ambulatory for the last hour or so since the injury without any difficulty. [id number]. He denies hitting his head, having headache, nausea, vomiting, vision changes, focal neurologic symptoms, back pain, or neck pain or abdominal pain. No trouble breathing, taking a deep breath does not make his pain worse. 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 Neurogenic bladder VIC (obstructive sleep apnea) Pulmonary embolism PVD (peripheral vascular disease) Home Medications aspirin 81 mg PO DAILY 02/21/14 [History Last Taken 07/21/19] doxazosin [Cardura] 8 mg PO DAILY 02/21/14 [History Last Taken 07/21/19] mycophenolate mofetil 250 mg PO BID 02/21/14 [History Last Taken 07/21/19] omeprazole 20 mg PO DAILY 02/21/14 [History Last Taken 07/21/19] magnesium oxide [MgO] 400 mg PO BID 12/25/17 [History Last Taken 07/21/19] umeclidinium-vilanterol [Anoro Ellipta] 1 puff INHALATION QHS 12/25/17 [History Last Taken 07/21/19] amlodipine 5 mg PO DAILY 12/30/17 [History Last Taken 07/21/19] atorvastatin 80 mg PO DAILY 12/30/17 [History Last Taken 07/21/19] carvedilol 25 mg PO BID 12/30/17 [History Last Taken 07/21/19] acetaminophen 1,000 mg PO Q8 tab 07/24/19 [Rx Last Taken Unknown] albuterol sulfate 1 - 2 puff INHALATION Q4H PRN PRN #1 inhaler 07/24/19 [Rx Last Taken Unknown] albuterol sulfate 2.5 mg INHALATION Q4H PRN 10/03/21 [History Last Taken Unknown] gabapentin 300 mg capsule 600 mg PO TID cap 10/03/21 [History Last Taken Unknown] prednisone 5 mg tablet 5 mg PO DAILY 10/04/21 [History Last Taken Unknown] sulfamethoxazole 400 mg-trimethoprim 80 mg tablet 1 tab PO DAILY 10/04/21 [History Last Taken Unknown] tacrolimus 0.5 mg capsule,extended release 24 hr 0.5 mg PO DAILY 10/04/21 [History Last Taken Unknown] Allergy/AdvReac Type Severity Reaction Status Date / Time acetaminophen Allergy Hives Verified 01/24/22 15:48 [From Darvocet-N] propoxyphene napsylate Allergy Hives Verified 01/24/22 15:48 [From Darvocet-N] venom-honey bee Allergy Hives Verified 01/24/22 15:48 [bee venom (honey bee)] Family History Father Arthritis Cancer Lung cancer, 1990 CAD (coronary artery disease) Mother CAD (coronary artery disease) Diet 2012 Surgical History History of lung biopsy (~2007) History of renal transplant Renal transplant recipient S/P pericardial window creation (~1991) Social History Smoking Status: Former smoker pack-years: 19 Tobacco: How many years used: 15 ROS ROS ED Constitutional Constitutional ED: Denies chills or fever(s) Eyes Eyes: Denies change in vision or diplopia ENT ENT ED: Denies ear pain, epistaxis, facial pain or rhinorrhea Cardiovascular Cardiovascular: Denies chest pain or palpitations Respiratory/Chest Respiratory/Chest: Denies cough or dyspnea Gastrointestinal Gastrointestinal: Denies abdominal pain, diarrhea, melena, nausea or vomiting Genitourinary Genitourinary ED: Denies dysuria or hematuria Musculoskeletal Musculoskeletal: Reports as per HPI and extremity pain; Denies back pain or neck pain Integumentary Denies abscess, Abrasions, laceration or rash Neurologic Neurologic: Denies confusion, headache(s), paresthesias or weakness EXAM Physical Exam Const Vital Signs: 01/24/22 15:46 01/24/22 16:16 Temperature 98.2 F Temperature Source Temporal Pulse Rate 67 Respiratory Rate 16 Respiratory Effort Normal Non-Labored Blood Pressure 152/84 H Blood Pressure Mean 106 Pulse Ox 98 Oxygen Delivery Method Room Air Room Air Positive well nourished and well developed General Appearance ED: well developed and NAD HEENT Reports TM's clear and nasal mucous membranes and turbinates normal atraumatic Face and Sinus: Negative for facial tenderness Tympanic Membrane ED: Yes TM's clear Eyes PERRL and EOMs intact bilaterally Visual Acuity: other Other Details: no entrapment or pain with extraocular movements Neck full ROM and supple General: Negative for tenderness Chest Wall Chest Narrative: Tender right mid clavicle. There is a superficial partial skin tear over this area but the dermis is intact. Chest: symmetrical chest wall rise and tenderness; Negative for crepitus Resp normal respiratory effort and clear to auscultation bilaterally Percussion: other equal BS bilat Cardio no murmurs Rate: regular rate Rhythm: regular rhythm GI normal to inspection, nondistended, normoactive bowel sounds, soft to palpation and non-tender Back/Spine normal ROM Cervical Spine: Negative for cervical spine tenderness Thoracic Spine / Upper Back: Negative for thoracic spinal tenderness Lumbar Spine / Lower Back: Negative for lumbar spinal tenderness Extremity normal to inspection and full ROM Extremity Narrative: Full range of motion including right shoulder, able to abduct, but with pain at the clavicle as above. General Extremety ED: Negative for tenderness Neuro oriented x3, CN's II-XII intact bilaterally, moves all extremities, no focal motor deficits, no sensory deficits noted and gait normal [place] Coma Scale: document GCS findings Spontaneous Obeys Commands Oriented 15 Sensorium / Orientation: awake and alert Psych mental status grossly normal and thought process normal Skin Skin Narrative: Right upper chest wall skin tear over the clavicle, no repairable laceration Lesions: no lesions Rashes: no rashes MDM MDM MDM Narrative Medical decision making narrative: X-rays of the clavicle were performed, 2 views right clavicle on my interpretation are negative for any fracture. Radiologist in agreement. He is nontender at the acromioclavicular joint, so I do not think he needs a sling for any acromioclavicular injury. We will give him lifting restrictions for now given that he is in a bit of pain, he was given a [place] here but I do not think he needs a prescription for that. His skin injury is a small skin tear and it is not a repairable laceration. It was cleansed and dressed with bacitracin. The rest of his exam showed no suspicion for other traumatic injury. Follow-up advised. Radiography Diagnostic Testing: Clinical Impression(s) from Imaging Studies Clavicle X-Ray 01/24/22 16:15 IMPRESSION: Normal x-ray examination of the clavicle. Electronically Signed: Modesto Connor MD at 16:30 EDT , Discharge Plan Triage Chief Complaint: Fall ED Provider: Maynor Samano Dx/Rx/DC Orders Clinical Impression: Contusion of right clavicle, Abrasion of right chest wall, Fall from ladder Instructions: Bruises (Contusions), ED Skin Avulsion Prescriptions: No Action albuterol sulfate 2.5 mg /3 mL (0.083 %) solution for nebulization 2.5 mg inhalation Q4H PRNRF: 0 gabapentin [Neurontin] 300 mg capsule 600 mg PO TID RF: 0 prednisone 5 mg tablet 5 mg PO DAILY RF: 0 sulfamethoxazole-trimethoprim [Bactrim] 400-80 mg tablet 1 tab PO DAILY RF: 0 Astagraf XL 0.5 mg capsule,extended release 24hr 0.5 mg PO DAILY RF: 0 mycophenolate mofetil 500 MG tablet 250 mg PO BID RF: 0 doxazosin [Cardura] 8 MG tablet 8 mg PO DAILY RF: 0 omeprazole 20 MG capsule 20 mg PO DAILY RF: 0 aspirin 81 MG tablet,chewable 81 mg PO DAILY RF: 0 magnesium oxide [MgO] 400 MG tablet 400 mg PO BID RF: 0 umeclidinium-vilanterol [Anoro Ellipta] 1 EACH blister with device 1 puff inhalation QHS RF: 0 atorvastatin 80 MG tablet 80 mg PO DAILY RF: 0 carvedilol 25 MG tablet 25 mg PO BID RF: 0 amlodipine 5 MG tablet 5 mg PO DAILY RF: 0 acetaminophen 500 MG tablet 1,000 mg PO Q8 RF: 0 albuterol sulfate 1 INHALER inhaler 1 - 2 puff inhalation Q4H PRN PRN (Reason: Shortness Of Breath) Qty: 1 RF: 0 Stand Alone Forms: Work Status Form Primary Care Provider: Diana Tate Referrals: [facility] [GROUP OF PHYSICIANS] - As soon as possible Diana Tate, PA [Primary Care Provider] - Disposition Disposition: Home, Self Care
--- NOTE | 2022-01-24 16:15 | RAD_ITS ---
STUDY: X-RAY - RIGHT CLAVICLE REASON FOR EXAM: Male, 51 years old. injury TECHNIQUE: 2 view(s) of the clavicle. COMPARISON: None. FINDINGS: Normal clavicle. Normal acromioclavicular articulation. Normal visualized sternoclavicular articulation. Normal visualized pulmonary apex. RAD/Clavicle IMPRESSION: Normal x-ray examination of the clavicle. Electronically Signed: Modesto Connor MD at 16:30 EDT ,
[2022-01-24] MEDS: Diphth,Pertuss(Acell),Tet Vac 0.5 ML Vial IM (16:26)
[2022-01-24] MEDS: HYDROcodone Bitartrate/Apap 5/325 Tablet PO (16:38)
[2022-01-24 16:53] VITALS: PULSE 84; RESP 18; O2SAT 99
== END 2022-01-24 16:54 | disposition home or self-care (01) ==
PROVIDERS: Emergency Provider Emergency Medicine; PCP Physician Assistant; Visit Provider Emergency Medicine
DX: S40.011A Contusion of right shoulder, initial encounter (principal); S20.311A Abrasion of right front wall of thorax, initial encounter; W11.XXXA Fall on and from ladder, initial encounter; W22.09XA Striking against other stationary object, initial encounter; Y99.0 Civilian activity done for income or pay; Z23 Encounter for immunization; N18.6 End stage renal disease; J44.9 Chronic obstructive pulmonary disease, unspecified; I73.9 Peripheral vascular disease, unspecified; G47.33 Obstructive sleep apnea (adult) (pediatric); K21.9 Gastro-esophageal reflux disease without esophagitis; Z79.52 Long term (current) use of systemic steroids; Z79.82 Long term (current) use of aspirin; Z79.899 Other long term (current) drug therapy; Z87.891 Personal history of nicotine dependence; Z94.0 Kidney transplant status
CPT/HCPCS: 73000; 90471; 90715; 99283; A4216

== ENCOUNTER 2022-07-27 12:33 | Emergency (ER) | payer BC, SELFPAY ==
[2022-07-27 12:34] VITALS: BP 130/69; PULSE 59; RESP 16; TEMP 36.6; O2SAT 97; BMI 23.8
[2022-07-27 12:36] VITALS: BP 130/69; PULSE 60; RESP 20; TEMP 36.6; O2SAT 97
--- NOTE | 2022-07-27 12:49 | RAD_ITS ---
STUDY: X-RAY CHEST REASON FOR EXAM: Male, 52 years old. Cough TECHNIQUE: 2 PA and lateral views of the chest. COMPARISON: 07/22/2019 FINDINGS: Right subclavian stent noted Lungs are hyperexpanded with chronic interstitial changes, and stable fibrotic scarring in the lingula. Stable blunting of both costophrenic angles. Sternal cerclage wires and vascular clips are present from a prior sternotomy and coronary artery bypass graft procedure (CABG). Normal mediastinum and vimal. Normal visualized pulmonary arteries. There is atherosclerotic calcification of the aortic arch with tortuosity. There are diffuse degenerative changes of the visualized thoracic spine. Normal visualized ribs, clavicles, and shoulders. There is no demonstrated abnormality of the visualized soft tissue structures of the upper abdomen. RAD/Chest PA and Lateral IMPRESSION: Hyperexpanded lungs with chronic interstitial changes and stable fibrotic scarring in the lingula. Stable blunting of both costophrenic angles Remote CABG Electronically Signed: Fidel Rueda MD at 13:35 EDT ,
--- NOTE | 2022-07-27 12:50 | EX.ED.VIS.UR ---
HPI HPI - URI History of Present Illness Chief Complaint: Shortness of Breath Narrative Narrative: 52-year-old male presenting for evaluation of a cough which has had for about 10 days now. The patient states that he was seen in urgent care on Saturday. They did not do a chest x-ray but did put him on prednisone, Tessalon Perles, albuterol MDI. He states he has home nebulizers and has been using these. They wrote him a prescription for doxycycline if he was not improving and he started this on Saturday. He states he still coughing and feeling short of breath. He had a COVID and influenza PCR which were both negative. He states he has fatigue, rhinorrhea, nasal congestion, sore throat. Patient does have history of COPD and he states he is a non-smoker. ROS ROS ED Constitutional Constitutional ED: Reports subjective; Denies chills Eyes Eyes: Denies change in vision or diplopia ENT ENT ED: Reports rhinorrhea and sore throat; Denies ear pain Cardiovascular Cardiovascular: Denies chest pain or palpitations Respiratory/Chest Respiratory/Chest: Reports cough and dyspnea Gastrointestinal Gastrointestinal: Denies abdominal pain or constipation Genitourinary Genitourinary ED: Denies dysuria or hematuria Musculoskeletal Musculoskeletal: Denies arthralgias or back pain Integumentary Denies abscess or Abrasions Neurologic Neurologic: Reports headache(s); Denies paresthesias Psychiatric Psychiatric: Denies anxiety or depression [facility] Medical History Chronic kidney disease, stage 3 Chronic obstructive pulmonary disease (COPD) Claudication Depression DVT (deep venous thrombosis) End stage renal disease GERD (gastroesophageal reflux disease) Hyperhomocystinemia Hyperparathyroidism 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 Neurogenic bladder VIC (obstructive sleep apnea) Pulmonary embolism PVD (peripheral vascular disease) Home Medications aspirin 81 mg chewable tablet 81 mg PO DAILY health maintenance 02/21/14 [History Last Taken 07/21/19] doxazosin 8 mg tablet (Cardura) 8 mg PO DAILY BLADDER 02/21/14 [History Last Taken 07/21/19] mycophenolate mofetil 500 mg tablet 250 mg PO BID ANTI-REJECTION 02/21/14 [History Last Taken 07/21/19] omeprazole 20 mg capsule,delayed release 20 mg PO DAILY ACID REFLUX 02/21/14 [History Last Taken 07/21/19] magnesium oxide 400 mg (241.3 mg magnesium) tablet (MgO) 400 mg PO BID SUPPLEMENT 12/25/17 [History Last Taken 07/21/19] umeclidinium 62.5 mcg-vilanterol 25 mcg/actuation powdr for inhalation (Anoro Ellipta) 1 puff inhalation QHS BREATHING 12/25/17 [History Last Taken 07/21/19] amlodipine 5 mg tablet 5 mg PO DAILY blood pressure 12/30/17 [History Last Taken 07/21/19] atorvastatin 80 mg tablet 80 mg PO DAILY cholesterol 12/30/17 [History Last Taken 07/21/19] carvedilol 25 mg tablet 25 mg PO BID blood pressure 12/30/17 [History Last Taken 07/21/19] acetaminophen 500 mg tablet 1,000 mg PO Q8 07/24/19 [Rx Last Taken Unknown] albuterol sulfate 90 mcg/actuation aerosol inhaler 1 - 2 puff inhalation Q4H PRN PRN Shortness Of Breath ##1 07/24/19 [Rx Last Taken Unknown] albuterol sulfate 2.5 mg/3 mL (0.083 %) solution for nebulization 2.5 mg inhalation Q4H PRN 10/03/21 [History Last Taken Unknown] gabapentin 300 mg capsule (Neurontin) 600 mg PO TID 10/03/21 [History Last Taken Unknown] prednisone 5 mg tablet 5 mg PO DAILY 10/04/21 [History Last Taken Unknown] sulfamethoxazole 400 mg-trimethoprim 80 mg tablet (Bactrim) 1 tab PO DAILY 10/04/21 [History Last Taken Unknown] tacrolimus 0.5 mg capsule,extended release 24 hr (Astagraf XL) 0.5 mg PO DAILY 10/04/21 [History Last Taken Unknown] albuterol sulfate 2.5 mg/3 mL (0.083 %) solution for nebulization 2.5 mg (3 mL) inhalation Q4H PRN PRN shortness of breath or wheezing #25 vials 07/27/22 [Rx Last Taken Unknown] promethazine-DM 6.25 mg-15 mg/5 mL oral syrup 5 ml PO Q6H PRN cough #118 mL 07/27/22 [Rx Last Taken Unknown] Allergy/AdvReac Type Severity Reaction Status Date / Time propoxyphene napsylate Allergy Hives Verified 07/27/22 12:36 [From Darvocet-N] venom-honey bee Allergy Hives Verified 07/27/22 12:36 [bee venom (honey bee)] Family History Father Arthritis Cancer Lung cancer, 1990 CAD (coronary artery disease) Mother CAD (coronary artery disease) Diet 2012 Surgical History History of lung biopsy (~2007) History of renal transplant Renal transplant recipient S/P pericardial window creation (~1991) Social History Smoking Status: Former smoker pack-years: 19 Tobacco: How many years used: 15 EXAM Physical Exam Const Vital Signs: 07/27/22 12:34 07/27/22 12:55 07/27/22 12:36 Temperature 97.8 F 97.8 F Temperature Source Temporal Temporal Pulse Rate 59 L 62 60 Respiratory Rate 16 24 H 20 H Respiratory Effort Blood Pressure 130/69 H 130/69 H Blood Pressure Mean 89 89 Pulse Ox 97 97 Oxygen Delivery Method Room Air Room Air 07/27/22 13:01 07/27/22 13:46 Temperature Temperature Source Pulse Rate 63 Respiratory Rate 16 Respiratory Effort Short of Breath Blood Pressure 140/97 H Blood Pressure Mean 111 Pulse Ox 97 Oxygen Delivery Method Room Air Room Air Positive well nourished General Appearance ED: NAD; Negative for pallor HEENT Reports moist mucous membranes normocephalic and atraumatic Throat: posterior oropharynx normal Eyes PERRL and EOMs intact bilaterally Resp normal respiratory effort Auscultation: wheezes expiratory wheezes and throughout Cardio Rate: bradycardia Rhythm: regular rhythm GI non-tender Extremity normal to inspection Neuro oriented x3 and CN's II-XII intact bilaterally Sensorium / Orientation: alert Motor Exam: strength 5/5 throughout Psych mental status grossly normal Skin General Skin Exam: Negative for jaundice or pallor MDM MDM MDM Narrative Medical decision making narrative: Patient states he is already on 40 mg of prednisone daily. He has been taking doxycycline for 4 days now. He states he feels generally rundown still. Patient given breathing treatments and feels much improved. He is already on prednisone, doxycycline, Tessalon Perles. He request something else to help with cough reviewed, promethazine. Patient also asked for refill on his albuterol nebulizers which was refilled. Patient counseled to continue his medications as prescribed. 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 Impression: 1. Acute bronchitis Lab Data Attestation: I reviewed the patient's lab results. Radiography Diagnostic Testing: Clinical Impression(s) from Imaging Studies Chest X-Ray 07/27/22 12:49 IMPRESSION: Hyperexpanded lungs with chronic interstitial changes and stable fibrotic scarring in the lingula. Stable blunting of both costophrenic angles Remote CABG Electronically Signed: Fidel Rueda MD at 13:35 EDT , Discharge Plan Triage Chief Complaint: Shortness of Breath ED Provider: Pro Schultz Dx/Rx/DC Orders Instructions: ED Bronchitis with Wheezing (Adult) Prescriptions: New albuterol sulfate 2.5 mg /3 mL (0.083 %) solution for nebulization 2.5 mg inhalation Q4H PRN PRN (Reason: shortness of breath or wheezing) Qty: 25 0RF Rx Instructions: Use q4 hours and PRN for wheezing promethazine-DM 6.25-15 mg/5 mL syrup 5 ml PO Q6H PRN (Reason: cough) Qty: 118 0RF No Action albuterol sulfate 2.5 mg /3 mL (0.083 %) solution for nebulization 2.5 mg inhalation Q4H PRN gabapentin [Neurontin] 300 mg capsule 600 mg PO TID prednisone 5 mg tablet 5 mg PO DAILY sulfamethoxazole-trimethoprim [Bactrim] 400-80 mg tablet 1 tab PO DAILY Astagraf XL 0.5 mg capsule,extended release 24hr 0.5 mg PO DAILY Rx Instructions: must administer in the morning on an empty stomach, 1 hour before or 2 hours after a meal mycophenolate mofetil 500 MG tablet 250 mg PO BID Label Comments: Anti-rejection medication doxazosin [Cardura] 8 MG tablet 8 mg PO DAILY omeprazole 20 MG capsule 20 mg PO DAILY Label Comments: acid reflux, gastric irritation aspirin 81 MG tablet,chewable 81 mg PO DAILY Label Comments: blood thinner magnesium oxide [MgO] 400 MG tablet 400 mg PO BID umeclidinium-vilanterol [Anoro Ellipta] 1 EACH blister with device 1 puff inhalation QHS Label Comments: INHALE 1 INHALATION INSTRUCTED ONCE DAILY. atorvastatin 80 MG tablet 80 mg PO DAILY Label Comments: carvedilol 25 MG tablet 25 mg PO BID Label Comments: amlodipine 5 MG tablet 5 mg PO DAILY Label Comments: acetaminophen 500 MG tablet 1,000 mg PO Q8 0RF albuterol sulfate 1 INHALER inhaler 1 - 2 puff inhalation Q4H PRN PRN (Reason: Shortness Of Breath) Qty: 1 0RF Primary Care Provider: Diana Tate Referrals: Diana Tate PA [Primary Care Provider] - Disposition Disposition: Home, Self Care
[2022-07-27] MEDS: Albuterol 2.5 MG/3 ML VIAL.NEB. INHALATION (12:54)
[2022-07-27] MEDS: Ipratropium/Albuterol Sulfate 3 ML AMPUL.NEB INHALATION (12:54)
[2022-07-27 12:55] VITALS: PULSE 62; RESP 24
[2022-07-27 13:01] VITALS: O2SAT 98
[2022-07-27 13:46] VITALS: BP 140/97; PULSE 63; RESP 16; O2SAT 97
== END 2022-07-27 15:32 | disposition home or self-care (01) ==
PROVIDERS: Emergency Provider Student in an Organized Health Care Education/Training Program; PCP Physician Assistant; Visit Provider Student in an Organized Health Care Education/Training Program
DX: J20.9 Acute bronchitis, unspecified (principal); J44.0 Chronic obstructive pulmonary disease with (acute) lower respiratory infection; N18.30 Chronic kidney disease, stage 3 unspecified; G47.33 Obstructive sleep apnea (adult) (pediatric); K21.9 Gastro-esophageal reflux disease without esophagitis; Z79.82 Long term (current) use of aspirin; Z79.52 Long term (current) use of systemic steroids; Z79.899 Other long term (current) drug therapy; Z87.891 Personal history of nicotine dependence; Z94.0 Kidney transplant status
CPT/HCPCS: 71046; 94640; 99281; 99282

== ENCOUNTER 2023-01-06 00:38 | Emergency (ER) | payer BC, SELFPAY ==
[2023-01-06 00:39] VITALS: BP 169/77; PULSE 88; RESP 17; TEMP 36.7; O2SAT 99; BMI 26.6
[2023-01-06 01:46] LABS: Absolute Lymphocyte Count 0.87 X10^3/uL (0.83-4.51); Basophil# 0.01 X10^3/uL; Basophil% 0.1 % (0-1); Eosinophil# 0.03 X10^3/uL; Eosinophils% 0.4 % (0-5); Hematocrit 31.8 % (40-54); Lymphocyte # 0.87 X10^3/ul (0.83-4.51); Lymphocyte % 10.9 % (19-41); Mean Corp Hgb Conc 31.4 g/dL (32-36); Mean Corpuscular Hgb 29.1 pg (27.0-32.0); Mean Corpuscular Volume 92.4 fL (80-94); Mean Platelet Vol. 10.6 fl (6.2-12.0); Monocyte# 0.98 X10^3/uL; Monocyte% 12.3 % (0-10); NRBC Flagged by Analyzer 0 % (0-5); Neutrophil # 6.03 X10^3/uL (2.7-7.7); Neutrophil % 75.8 % (47-70); POSITIVE COUNT YES; Platelet Count 92 K/mm3 (150-450); RBC Distribution Width CV 13.1 % (11.6-14.6); Red Blood Count 3.44 M/mm3 (4.6-6.2)
[2023-01-06 02:00] LABS: AST(SGOT) 13 U/L (15-37); Alanine Aminotransfer ALT/SGPT 13 U/L (16-61); Albumin, Serum 3.5 g/dL (3.2-5.0); Alkaline Phosphatase 67 U/L (45-117); Anion Gap 4 (5-15); BUN 33 mg/dL (7-18); BUN/Creat Ratio 14.3 RATIO (10-20); Bilirubin, Direct 0.22 mg/dL (0.00-0.30); Chloride 108 mmol/L (98-107); EST Glomerular Filtration Rate 32 mL/min (>60); Est Glom Filt Rate - Afr Amer 38 mL/min (>60); Estimated Creatinine Clearance 32.31 ml/min; Globulin 2.6 g/dL (2.2-4.2); Glucose 94 mg/dL (74-106); Potassium 4.8 mmol/L (3.5-5.1); Protein, Total 6.1 g/dL (6.4-8.2); Sodium Level 135 mmol/L (136-145)
[2023-01-06 02:02] LABS: BNP,B-Type NATRIURETIC PEPTIDE 179.8 pg/mL (0-100)
[2023-01-06 02:07] LABS: Mucous, Urine 0 SEEN /hpf (<or=2+); Red Blood Cells-Urine 0 SEEN /hpf (0-5); Squamous Epithelial Cells - UA 0 SEEN /hpf (0-5); White Blood Cells 0 SEEN /hpf (0-5)
[2023-01-06 02:08] LABS: Color, Urine Yellow (Yellow); Glucose, Dipstick Normal (Normal); Ketone-Dipstick Negative (Negative); Leukocyte Esterase-Dipstick 25 /ul (Negative); Nitrite-Dipstick Negative (Negative); Occult Blood-Urine Negative /ul (Negative); Protein-Dipstick 30 mg/dl (Negative); Specific Gravity, Urine 1.015 (1.002-1.030); Urine Bilirubin Dipstick Negative (Negative); Urine Clarity Clear (Clear); Urine Urobilinogen Normal (Normal)
[2023-01-06 02:15] LABS: Bacteria 1+ /hpf (None Seen)
--- NOTE | 2023-01-06 02:30 | RAD_ITS ---
EXAM: XR CHEST, 1 VIEW CLINICAL INDICATION: cough TECHNIQUE: Frontal view of the chest. This report was created using [employer] report generation technology. COMPARISON: Chest x-ray 07/22/[address] scan of the chest 07/22/2019. FINDINGS: LUNGS AND PLEURAL SPACES: Dense pleural calcification again overlying the left lower hemithorax. No pneumothorax. No effusion. HEART: Stable mild cardiomegaly. Status post coronary artery bypass graft. MEDIASTINUM: Central airways and mediastinal contour are unremarkable. BONES/JOINTS: Sternal wires. SOFT TISSUES: Unremarkable. RAD/Chest 1 View (Portable) IMPRESSION: 1. Dense pleural calcification again overlying the left lower hemithorax. 2. No acute cardiopulmonary abnormality. Electronically Signed: Celso García MD at 3:03 EDT ,
--- NOTE | 2023-01-06 03:15 | EX.ED.DYSGE1 ---
HPI History of Present Illness Chief Complaint: Complaint Narrative Narrative: Patient is a 52-year-old male with past medical history of hypertension as well as immunosuppressed state secondary to previous kidney transplant. He states that he can urinate on his own but also has to self cath. He underwent a left shoulder surgery 3 days ago. He states that he also has begun narcotics secondary to that surgery. He states that he feels like his body is puffing up and he also reports he has been having difficulty making urine. 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 Neurogenic bladder VIC (obstructive sleep apnea) Pulmonary embolism PVD (peripheral vascular disease) Home Medications aspirin 81 mg chewable tablet 81 mg PO DAILY health maintenance 02/21/14 [History Last Taken 07/21/19] doxazosin 8 mg tablet (Cardura) 8 mg PO DAILY BLADDER 02/21/14 [History Last Taken 07/21/19] mycophenolate mofetil 500 mg tablet 250 mg PO BID ANTI-REJECTION 02/21/14 [History Last Taken 07/21/19] omeprazole 20 mg capsule,delayed release 20 mg PO DAILY ACID REFLUX 02/21/14 [History Last Taken 07/21/19] magnesium oxide 400 mg (241.3 mg magnesium) tablet (MgO) 400 mg PO BID SUPPLEMENT 12/25/17 [History Last Taken 07/21/19] umeclidinium 62.5 mcg-vilanterol 25 mcg/actuation powdr for inhalation (Anoro Ellipta) 1 puff inhalation QHS BREATHING 12/25/17 [History Last Taken 07/21/19] amlodipine 5 mg tablet 5 mg PO DAILY blood pressure 12/30/17 [History Last Taken 07/21/19] atorvastatin 80 mg tablet 80 mg PO DAILY cholesterol 12/30/17 [History Last Taken 07/21/19] carvedilol 25 mg tablet 25 mg PO BID blood pressure 12/30/17 [History Last Taken 07/21/19] acetaminophen 500 mg tablet 1,000 mg PO Q8 07/24/19 [Rx Last Taken Unknown] albuterol sulfate 90 mcg/actuation aerosol inhaler 1 - 2 puff inhalation Q4H PRN PRN Shortness Of Breath ##1 07/24/19 [Rx Last Taken Unknown] albuterol sulfate 2.5 mg/3 mL (0.083 %) solution for nebulization 2.5 mg inhalation Q4H PRN 10/03/21 [History Last Taken Unknown] gabapentin 300 mg capsule (Neurontin) 600 mg PO TID 10/03/21 [History Last Taken Unknown] prednisone 5 mg tablet 5 mg PO DAILY 10/04/21 [History Last Taken Unknown] sulfamethoxazole 400 mg-trimethoprim 80 mg tablet (Bactrim) 1 tab PO DAILY 10/04/21 [History Last Taken Unknown] tacrolimus 0.5 mg capsule,extended release 24 hr (Astagraf XL) 0.5 mg PO DAILY 10/04/21 [History Last Taken Unknown] albuterol sulfate 2.5 mg/3 mL (0.083 %) solution for nebulization 2.5 mg (3 mL) inhalation Q4H PRN PRN shortness of breath or wheezing #25 vials 07/27/22 [Rx Last Taken Unknown] promethazine-DM 6.25 mg-15 mg/5 mL oral syrup 5 ml PO Q6H PRN cough #118 mL 07/27/22 [Rx Last Taken Unknown] cephalexin 500 mg capsule 500 mg PO TID 7 days #21 caps 01/06/23 [Rx Last Taken Unknown] Allergy/AdvReac Type Severity Reaction Status Date / Time propoxyphene napsylate Allergy Hives Verified 01/06/23 00:44 [From Darvocet-N] venom-honey bee Allergy Hives Verified 01/06/23 00:44 [bee venom (honey bee)] Family History Father Arthritis Cancer Lung cancer, 1990 CAD (coronary artery disease) Mother CAD (coronary artery disease) Diet 2012 Surgical History History of lung biopsy (~2007) History of renal transplant Renal transplant recipient S/P pericardial window creation (~1991) Social History Smoking Status: Former smoker pack-years: 19 Tobacco: How many years used: 15 ROS ROS ED Constitutional Constitutional ED: Denies chills or fever(s) ENT ENT ED: Denies sore throat Cardiovascular Cardiovascular: Reports other Details: Positive edema ; Denies chest pain Respiratory/Chest Respiratory/Chest: Reports dyspnea; Denies cough Gastrointestinal Gastrointestinal: Denies abdominal pain, diarrhea, nausea or vomiting Genitourinary Genitourinary ED: Reports other Details: Urinary retention ; Denies dysuria Musculoskeletal Musculoskeletal: Denies myalgias Integumentary Denies rash Neurologic Neurologic: Denies headache(s) Hematologic/Lymphatic Hematologic/Lymphatic: Denies easy bleeding or easy bruising EXAM Physical Exam Const Vital Signs: 01/06/23 00:39 01/06/23 00:39 Temperature 98.0 F Temperature Source Temporal Pulse Rate 88 Respiratory Rate 17 Blood Pressure 169/77 H Blood Pressure Mean 107 Pulse Ox 99 Oxygen Delivery Method Room Air Positive well nourished and well developed General Appearance ED: well developed HEENT Reports moist mucous membranes HEENT Narrative: No tongue or lip swelling no oral lesions no airway edema or compromise Eyes PERRL and EOMs intact bilaterally General Eye ED: Negative for scleral icterus Neck supple and no JVD Chest Wall palpation of chest normal Resp normal respiratory effort Resp Narrative: There is faint expiratory wheeze in the bilateral lower lobes but no rhonchi or crackles. No signs of respiratory distress Cardio regular rate and regular rhythm GI normal to inspection, nondistended, normoactive bowel sounds, non-tender, non-distended and no masses GI Narrative: No organomegaly noted to suggest acute urinary retention no voluntary guarding or rigidity or pulsatile mass. No fluid wave noted Auscultation: normoactive bowel sounds Palpation: soft Extremity Extremity Narrative: Chronic changes to the left shoulder consistent with recent shoulder/rotator cuff surgery There is trace to +1 pitting edema to the bilateral lower extremities that is equal and symmetric Negative Homans' sign bilaterally Neuro oriented x3 and CN's II-XII intact bilaterally Sensorium / Orientation: alert Psych mental status grossly normal Skin no rashes or lesions noted MDM MDM MDM Narrative Medical decision making narrative: Patient presented to the ER hypertensive but otherwise with stable vitals satting 99% on room air without signs of respiratory distress. With his reported decreased urine output and the fact he undergoes self-catheterization there is concern for urinary tract infection. Also as he reports edema there is concern for pleural effusion or CHF exacerbation or possibly acute kidney injury or third spacing from hypoalbuminemia. A chest x-ray was obtained that revealed chronic changes without infection or pleural effusion. Blood work showed creatinine of 2.3 and patient reports his baseline is 1.5-2 indicating he is not high above his normal value to classify as acute on chronic kidney injury. Labs do show that his protein and albumin levels are on the low end which could indicate some of the edema. A bladder scan was obtained and revealed only approximate 250 to 300 mL of urine in the bladder. As he had difficulty urinating Machado catheter was placed. The urine was sent for evaluation and there is +1 bacteria whether this is contamination/normal vera from his self-catheterization of the start of infection is hard to say therefore he will have the urine sent for culture. We discussed keeping the Machado catheter in place based on his report of difficulty urinating but patient does not want it there and states he will continue to self cath. At this time he has renal insufficiency but he is not high enough above his baseline to suggest [place] he is not uroseptic he does not have pleural effusions or CHF exacerbation. Therefore we will place him on a short round of antibiotics while urine is sent for culture and he can follow-up on an outpatient basis History & Record Review Discussion w/independent historian: Patient and Family Lab Data Attestation: I reviewed the patient's lab results. Labs: Laboratory Results - last 24 hr 01/06/23 01/06/23 01/06/23 01:38 01:38 01:38 WBC 8.0 RBC 3.44 L Hgb 10.0 L Hct 31.8 L MCV 92.4 MCH 29.1 MCHC 31.4 L RDW Std Deviation 44.0 H RDW Coeff of [place] 13.1 Plt Count 92 L MPV 10.6 Immature Gran % (Auto) 0.500 Neut % (Auto) 75.8 H Lymph % (Auto) 10.9 L [place] % (Auto) 12.3 H Eos % (Auto) 0.4 Baso % (Auto) 0.1 Absolute Neuts (auto) 6.0 Absolute Lymphs (auto) 0.87 Nucleated RBC % 0 Sodium 135 L Potassium 4.8 Chloride 108 H Carbon Dioxide 23.0 Anion Gap 4 L BUN 33 H Creatinine 2.30 H Estim Creat Clear Calc 32.31 Est GFR (MDRD) Af Amer 38 L Est GFR (MDRD) Non-Af 32 L BUN/Creatinine Ratio 14.3 Glucose 94 Calcium 10.0 Total Bilirubin 0.60 Direct Bilirubin 0.22 AST 13 L ALT 13 L Alkaline Phosphatase 67 B-Natriuretic Peptide 179.8 H Total Protein 6.1 L Albumin 3.5 Globulin 2.6 Urine Color Urine Clarity Urine pH Ur Specific [place] Urine Protein Urine Glucose (UA) Urine Ketones Urine Occult Blood Urine Nitrite Urine Bilirubin Urine Urobilinogen Ur Leukocyte Esterase Urine RBC Urine WBC Ur Squamous Epith Cells Urine Bacteria Urine Mucus 01/06/23 02:00 WBC RBC Hgb Hct MCV MCH MCHC RDW Std Deviation RDW Coeff of [place] Plt Count MPV Immature Gran % (Auto) Neut % (Auto) Lymph % (Auto) [place] % (Auto) Eos % (Auto) Baso % (Auto) Absolute Neuts (auto) Absolute Lymphs (auto) Nucleated RBC % Sodium Potassium Chloride Carbon Dioxide Anion Gap BUN Creatinine Estim Creat Clear Calc Est GFR (MDRD) Af Amer Est GFR (MDRD) Non-Af BUN/Creatinine Ratio Glucose Calcium Total Bilirubin Direct Bilirubin AST ALT Alkaline Phosphatase B-Natriuretic Peptide Total Protein Albumin Globulin Urine Color Yellow Urine Clarity Clear Urine pH 6.0 Ur Specific [place] 1.015 Urine Protein 30 H Urine Glucose (UA) Normal Urine Ketones Negative Urine Occult Blood Negative Urine Nitrite Negative Urine Bilirubin Negative Urine Urobilinogen Normal Ur Leukocyte Esterase 25 H Urine RBC 0 SEEN Urine WBC 0 SEEN Ur Squamous Epith Cells 0 SEEN Urine Bacteria 1+ Urine Mucus 0 SEEN Radiography Diagnostic Testing: Clinical Impression(s) from Imaging Studies Chest X-Ray 01/06/23 02:30 IMPRESSION: 1. Dense pleural calcification again overlying the left lower hemithorax. 2. No acute cardiopulmonary abnormality. Electronically Signed: Celso García MD at 3:03 EDT , Chest x-ray as interpreted by the emergency medicine physician reveals chronic changes without acute infiltrate pneumothorax or pleural effusion Discharge Plan Triage Chief Complaint: Complaint ED Provider: Zhou Hines Dx/Rx/DC Orders Clinical Impression: Renal insufficiency, Hypertension, Edema, peripheral, Immunosuppressed status Instructions: ED Renal Insufficiency Prescriptions: New cephalexin 500 mg capsule 500 mg PO TID 7 Days Qty: 21 0RF No Action albuterol sulfate 2.5 mg /3 mL (0.083 %) solution for nebulization 2.5 mg inhalation Q4H PRN gabapentin [Neurontin] 300 mg capsule 600 mg PO TID prednisone 5 mg tablet 5 mg PO DAILY sulfamethoxazole-trimethoprim [Bactrim] 400-80 mg tablet 1 tab PO DAILY Astagraf XL 0.5 mg capsule,extended release 24hr 0.5 mg PO DAILY Rx Instructions: must administer in the morning on an empty stomach, 1 hour before or 2 hours after a meal mycophenolate mofetil 500 MG tablet 250 mg PO BID Label Comments: Anti-rejection medication doxazosin [Cardura] 8 MG tablet 8 mg PO DAILY omeprazole 20 MG capsule 20 mg PO DAILY Label Comments: acid reflux, gastric irritation aspirin 81 MG tablet,chewable 81 mg PO DAILY Label Comments: blood thinner magnesium oxide [MgO] 400 MG tablet 400 mg PO BID umeclidinium-vilanterol [Anoro Ellipta] 1 EACH blister with device 1 puff inhalation QHS Label Comments: INHALE 1 INHALATION INSTRUCTED ONCE DAILY. atorvastatin 80 MG tablet 80 mg PO DAILY Label Comments: carvedilol 25 MG tablet 25 mg PO BID Label Comments: amlodipine 5 MG tablet 5 mg PO DAILY Label Comments: acetaminophen 500 MG tablet 1,000 mg PO Q8 0RF albuterol sulfate 1 INHALER inhaler 1 - 2 puff inhalation Q4H PRN PRN (Reason: Shortness Of Breath) Qty: 1 0RF albuterol sulfate 2.5 mg /3 mL (0.083 %) solution for nebulization 2.5 mg inhalation Q4H PRN PRN (Reason: shortness of breath or wheezing) Qty: 25 0RF Rx Instructions: Use q4 hours and PRN for wheezing promethazine-DM 6.25-15 mg/5 mL syrup 5 ml PO Q6H PRN (Reason: cough) Qty: 118 0RF Primary Care Provider: Diana Tate Referrals: Diana Tate PA [Primary Care Provider] - Activity Restrictions/Additional Instructions: Please keep yourself hydrated as your kidney values today are slightly above your baseline. Your urine shows bacteria and while the urine culture is pending please take the antibiotic as directed. If you have any further concerns or worsening of symptoms please return for repeat evaluation Disposition Disposition: Home, Self Care Discharge Date/Time: 01/06/23 03:37
[2023-01-06] MEDS: Cephalexin 250 MG Capsule 500 MG PO (03:30)
== END 2023-01-06 03:37 | disposition home or self-care (01) ==
PROVIDERS: Emergency Provider Emergency Medicine; PCP Physician Assistant; Visit Provider Emergency Medicine
DX: N39.0 Urinary tract infection, site not specified (principal); J44.9 Chronic obstructive pulmonary disease, unspecified; N28.9 Disorder of kidney and ureter, unspecified; R60.9 Edema, unspecified; Z79.82 Long term (current) use of aspirin; Z79.52 Long term (current) use of systemic steroids; Z79.899 Other long term (current) drug therapy; Z94.0 Kidney transplant status; Z87.891 Personal history of nicotine dependence
CPT/HCPCS: 71045; 80048; 80076; 81001; 83880; 85025; 87086; 99283; A4216

== ENCOUNTER 2023-11-15 06:31 | Inpatient (IN) | payer BC, SELFPAY ==
[2023-11-15] VITALS (9 sets, daily range): BP systolic 100–149; BP diastolic 53–77; PULSE 55–82; RESP 13–28; TEMP 36.6–37.6; O2SAT 80–99; BMI 24.0; BMI 23.4
--- OUTSIDE RECORDS SUMMARY | 2023-11-15 06:54 | XMS RPT_ITS | CCD ---
Author Name Unknown Address [id number] [place] [address] Organization [facility] Care Team Providers Care Crimping Press Operator Name Role Phone DAMEON MACNETH Unavailable Unavailable ESTEFANIA MELANIE Unavailable Unavailable ESTEFANIA MELANIE Unavailable Unavailable ESTEFANIA, MELANIE Unavailable Unavailable IM[facility] Unavailable Unavailable [facility] Unavailable Unavailable MELANIE MAC Unavailable Unavailable GUIDO JAUREGUI Unavailable Unavailable Guido Jauregui Attending Unavailable PROVIDER, UNKNOWN Referring Unavailable Cirseank, Christopher Primary Care Unavailable Guido Jauregui Attending Unavailable PROVIDER, UNKNOWN Referring Unavailable Cirseank, Christopher Primary Care Unavailable Guido Jauregui Attending Unavailable PROVIDER, UNKNOWN Referring Unavailable Ciryak, Christopher Primary Care Unavailable Jittirat, [place] Unavailable Unavailable Teres Christopher Unavailable Unavailable Diana Tate Primary Care Provider Unavaila Diana Will Primary Care Provider Unavaila forrest Garrtetell Ashley Unavailable Unavailable Verito, [place] Unavailable Unavailable Diana Tate Primary Care Provider Unavaila Myke Byrder Unavailable Unavailable Unavailable Diana Tate PA-C Primary Care Provider [phone] Diana Tate PA-C Primary Care Provider [phone] Diana Tate PA-C Primary Care Provider [phone] Diana Tate PA-C Primary Care Provider [phone] Ledy Ivy MD Unavailable LEDY IVY Referring Unavailable Diana TATE Primary Care Unavailable Tate, M Ines Primary Care Provider Amado INSURANCE AND FINANCIAL SERVICES AGENT - Jennifer SHELBY Unavailable ASIA CHA Attending Unavailable ASIA CHA Referring Unavailable TATE, M Primary Care Unavailable JENNIFER STUTON Attending Unavailable TATE, M Primary Care Unavailable Boshkos, Dr. Medley Primary Care Unavail able Verito, Dr. Machuca Attending Unavail able Bill, Dr. Medley Primary Care Unavail able Verito, Dr. Machuca Attending Unavail able Verito, Dr. Machuca Attending Unavail able Bill, Dr. Medley Primary Care Unavail able Camron BURT, Amir Unavailable PRACHI DOSS Attending Unavailab le CHICORELPRACHI MATOS Admitting Unavailab le TATE, M INES Primary Care Unavailable TATE, M INES Primary Care Unavailable LAZARO GONZALEZ Attending Unavailable TATE, M INES Referring Unavailable TATE, M INES Primary Care Unavailable ABRAHAM EVANS Referring Unavailable LAZARO GONZALEZ Attending Unavailable TATE, M INES Referring Unavailable CARLOSLAZARO Attending Unavailable TATE, M INES Primary Care Unavailable TATE, M INES Primary Care Unavailable TATE, M INES Primary Care Unavailable TATE, M INES Primary Care Unavailable TATE, M INES Attending Unavailable TATE, M INES Primary Care Unavailable CHICORELLIPRACHI Attending Unavailab le TATE, M INES Primary Care Unavailable TATE, M INES Referring Unavailable TATE, M INES Primary Care Unavailable GOLIAS, TONNY Attending Unavailable TATE, M INES Referring Unavailable TATE, M INES Primary Care Unavailable GOLIAS, TONNY Attending Unavailable TATE, M INES Referring Unavailable TATE, M INES Primary Care Unavailable TATE, M INES Primary Care Unavailable ABRAHAM EVANS Attending Unavailable TATE, M INES Attending Unavailable TATE, M INES Primary Care Unavailable TATE, M INES Referring Unavailable TATE, M INES Primary Care Unavailable MAYNOR BALDWIN Referring Unavailable MAYNOR BALDWIN Attending Unavailable TATE, M INES Primary Care Unavailable MAYNOR BALDWIN Referring Unavailable PRACHI DOSS Attending Unavailab le TATE, M INES Primary Care Unavailable CHICPRACHI PRASAD Referring Unavailab le TATE, M INES Primary Care Unavailable LEDY IVY Attending Unavailable TATE, M INES Primary Care Unavailable TATE, M INES Referring Unavailable TATE, M INES Primary Care Unavailable CHICORELLIPRACHI Attending Unavailab le TATE, M INES Primary Care Unavailable CHICORELLIPRACHI Attending Unavailab le TATE, M INES Primary Care Unavailable TATE, M INES Referring Unavailable TATE, M INES Primary Care Unavailable TATE, M INES Referring Unavailable TATE, M INES Primary Care Unavailable MARIA ELENA DOCKERY Attending Unavailable TATE, M INES Referring Unavailable TATE, M INES Primary Care Unavailable TATE, M INES Referring Unavailable TONNY DE GUZMAN Attending Unavailable TATE, M INES Primary Care Unavailable GOLIASJOSE LNT Attending Unavailable TATE, M INES Referring Unavailable TATE, M INES Primary Care Unavailable TATE, M INES Referring Unavailable TATE, M INES Primary Care Unavailable TATE, M INES Referring Unavailable LAZARO GONZALEZ Attending Unavailable TATE, M INES Primary Care Unavailable TATE, M INES Referring Unavailable LAZARO GONZALEZ Attending Unavailable TATE, M INES Primary Care Unavailable TATE, M INES Referring Unavailable LAZARO GONZALEZ Attending Unavailable TATE, M INES Primary Care Unavailable TATE, M INES Referring Unavailable TATE, M INES Primary Care Unavailable LAZARO GONZALEZ Attending Unavailable TATE, M INES Referring Unavailable TATE, M INES Primary Care Unavailable TATE, M INES Primary Care Unavailable LAZARO GONZALEZ Attending Unavailable TATE, M INES Referring Unavailable Bill BURT Lamoni Primary Care Provider [phone] Allergies Allergy Classification Reported Allergen(s) Allergy Type Date of Onset Reaction(s) Facility Bee/Wasp/Ant Venom (1 source) bee venom Substance Allergy 8 Hives [facility] (20 sources) BEE STING; Translations: [BEE STING] Propensity to adverse reactions (disorder) 0 Hives, Swelling [facility] (20 sources) PROPOXYPHENE N-ACETAMINOPHEN; Translations: [PROPOXYPHENE N-ACETAMINOPHEN] Propensity to adverse reactions (disorder) 0 [facility] Rep[facility] (14 sources) Propoxyphene; Translations: [propoxyphene] Drug Allergy 9 [facility]ie -Nephrology -[facility] [place] [address] Work Phone: (4 sources) bee venom Propensity to adverse reactions to drug 8 [facility] [place], [place] Medications Current Medications Medication Drug Class(es) Dates Sig (Normalized) Sig (Original) amLODIPine 5 mg oral tablet (20 sources) Dihydropyridine Calcium Channel Anne Start: 11-13-2023 End: 11-12-2024 take 1 tablet by mouth once daily amLODIPine (Norvasc) 5 mg tablet Indications: Kidney replaced by transplant , Essential hypertension , Vitamin D deficiency , Hyperparathyroidism (CMS/HCC) , Benign prostatic hyperplasia without lower urinary tract symptoms Take 1 tablet (5 mg) by mouth once daily. 90 tablet 3 11/13/2023 11/12/2024 Active Completed/Discontinued Medications Medication Drug Class(es) Dates Sig (Normalized) Sig (Original) acetaminophen 500 mg oral capsule (20 sources) Start: 08-29-2015 Acetaminophen 500 MG CAPS take 1-2 tablets prn q 6 hours Quantity: 0 Refills: 0 Ordered: 29-Aug-2015 DO Start : 29-Aug-2015 Active Problems Active Problems Problem Classification Problem Date Documented Date Episodic/Chronic Calculus of urinary tract (20 sources) Kidney stone; Translations: [Calculus of kidney] 12-08-2017 Episodic Cataract (20 sources) Cataract; Translations: [Unspecified cataract] Onset: 2 03-06-2022 Chronic Chronic kidney disease (20 sources) Chronic kidney disease, unspecified; Translations: [History of renal transplant] Onset: 0 02-13-2018 Chronic Chronic obstructive pulmonary disease and bronchiectasis (20 sources) Asthma-chronic obstructive pulmonary disease overlap syndrome; Translations: [Chronic obstructive lung disease] Onset: 8 12-28-2017 Chronic Chronic obstructive pulmonary disease and bronchiectasis (1 source) Bronchitis; Translations: [Bronchitis, not specified as acute or chronic] Episodic Coagulation and hemorrhagic disorders (6 sources) Acquired thrombocytopenia; Translations: [Thrombocytopenia, unspecified] Onset: 8 02-13-2018 Chronic Coronary atherosclerosis and other heart disease (20 sources) Atherosclerotic heart disease of [place] coronary artery without angina pectoris; Translations: [Coronary arteriosclerosis] Onset: 0 12-28-2017 Chronic Disorders of lipid metabolism (20 sources) Dyslipidemia; Translations: [Other and unspecified hyperlipidemia] Onset: 1 06-09-2021 Chronic Esophageal disorders (20 sources) Gastroesophageal reflux disease; Translations: [Gastro-esophageal reflux disease without esophagitis] Onset: 4 03-05-2014 Chronic Essential hypertension (20 sources) Hypertensive disorder; Translations: [Essential (primary) hypertension] Onset: 8 12-28-2017 Chronic Genitourinary symptoms and ill-defined conditions (7 sources) Retention of urine; Translations: [Retention of urine, unspecified] Onset: 8 02-14-2018 Episodic Heart valve disorders (6 sources) Aortic valve regurgitation; Translations: [Nonrheumatic aortic (valve) insufficiency] Onset: 8 12-28-2017 Chronic Hyperplasia of prostate (20 sources) Benign prostatic hypertrophy with outflow obstruction; Translations: [Benign prostatic hyperplasia with lower urinary tract symptoms] Onset: 2 Chronic Hypertension with complications and secondary hypertension (2 sources) Hypertensive chronic kidney disease with stage 1 through stage 4 chronic kidney disease, or unspecified chronic kidney disease; Translations: [Hypertensive chronic kidney disease w stg 1-4/unsp chr kdny] Onset: 9 Chronic Immunity disorders (19 sources) Immunosuppression; Translations: [Immunodeficiency, unspecified] Onset: 8 12-28-2017 Chronic Mood disorders (20 sources) Depressive disorder; Translations: [Depression] Onset: 2 03-07-2012 Chronic Nutritional deficiencies (10 sources) Vitamin D deficiency; Translations: [Unspecified vitamin D deficiency] 11-13-2023 Chronic Osteoporosis (20 sources) Osteoporosis; Translations: [Other osteoporosis without current pathological fracture] Onset: 8 09-21-2018 Chronic Other bone disease and musculoskeletal deformities (10 sources) Osteopenia; Translations: [Disorder of bone and cartilage, unspecified] Episodic Other bone disease and musculoskeletal deformities (1 source) Other specified disorders of bone density and structure, right thigh; Translations: [Oth disrd of bone density and structure, right thigh] Onset: 3 Episodic Other bone disease and musculoskeletal deformities (1 source) Other specified disorders of bone density and structure, left thigh; Translations: [Oth disrd of bone density and structure, left thigh] Onset: 3 Episodic Other circulatory disease (2 sources) Peripheral vascular angioplasty status with implants and grafts; Translations: [Peripheral vascular angioplasty status w implants and grafts] Onset: 8 Chronic Other connective tissue disease (5 sources) Impingement syndrome of left shoulder region; Translations: [Impingement syndrome of left shoulder] Episodic Other connective tissue disease (1 source) Adhesive capsulitis of left shoulder; Translations: [Adhesive capsulitis of left shoulder] Episodic Other connective tissue disease (1 source) Non-traumatic partial tear of left rotator cuff; Translations: [Incomplete rotator cuff tear or rupture of left shoulder, not specified as traumatic] Episodic Other connective tissue disease (2 sources) Bursitis of left shoulder; Translations: [Bursitis of left shoulder] Episodic Other connective tissue disease (2 sources) Tendonitis of left shoulder; Translations: [Other enthesopathies, not elsewhere classified] Episodic Other diseases of bladder and urethra (20 sources) Neurogenic bladder; Translations: [Neuromuscular dysfunction of bladder, unspecified] Onset: 8 12-08-2017 Chronic Other diseases of bladder and urethra (1 source) Other specified disorders of bladder; Translations: [Other specified disorders of bladder] Onset: 3 Chronic Other diseases of bladder and urethra (1 source) Neuromuscular dysfunction of bladder, unspecified; Translations: [Neurogenic bladder] Onset: 8 Chronic Other endocrine disorders (20 sources) Hyperparathyroidism; Translations: [Hyperparathyroidism, unspecified] Onset: 8 12-08-2017 Chronic Other endocrine disorders (1 source) Hyperparathyroidism, unspecified; Translations: [Hyperparathyroidism (HCC)] Onset: 8 Chronic Other lower respiratory disease (20 sources) Multiple nodules of lung; Translations: [Other nonspecific abnormal finding of lung field] 12-08-2017 Episodic Other nervous system disorders (20 sources) Chronic pain syndrome; Translations: [Chronic pain syndrome] Onset: 8 08-09-2018 Chronic Other nervous system disorders (4 sources) Postoperative pain ; Translations: [Other acute postprocedural pain] Episodic Other non-traumatic joint disorders (4 sources) Shoulder pain; Translations: [Pain in left shoulder] Episodic Other non-traumatic joint disorders (4 sources) Chronic pain of left upper limb; Translations: [Pain in left shoulder] Episodic Other nutritional; endocrine; and metabolic disorders (20 sources) Hyperhomocysteinemia ; Translations: [Homocystinuria] Onset: 8 12-08-2017 Chronic Other nutritional; endocrine; and metabolic disorders (1 source) Homocystinuria; Translations: [Hyperhomocysteinemia (HCC)] Onset: 8 Chronic Other screening for suspected conditions (not mental disorders or infectious disease) (1 source) Plain X-ray result abnormal; Translations: [Abnormal findings on diagnostic imaging of other specified body structures] Chronic Other upper respiratory infections (1 source) Sore throat symptom; Translations: [Acute pharyngitis, unspecified] Episodic Pathological fracture (1 source) Osteoporosis; Translations: [Age-related osteoporosis with current pathological fracture, unspecified site, initial encounter for fracture] 11-13-2023 Episodic [place]-; endo-; and myocarditis; cardiomyopathy (except that caused by tuberculosis or sexually transmitted disease) (20 sources) Heart valve disorder; Translations: [Endocarditis, valve unspecified] Onset: 3 Chronic Peripheral and visceral atherosclerosis (20 sources) Atherosclerosis of [place] arteries of extremities with intermittent claudication, bilateral legs; Translations: [Peripheral vascular disease] Onset: 7 Resolved: 0 02-11-2018 Chronic Peripheral and visceral atherosclerosis (2 sources) Stenosis of right subclavian artery; Translations: [Intermittent claudication of bilateral lower limbs co-occurrent and due to atherosclerosis] Pulmonary heart disease (20 sources) Pulmonary hypertension; Translations: [Pulmonary hypertension, unspecified] Onset: 3 Chronic Residual codes; unclassified (20 sources) Obstructive sleep apnea syndrome; Translations: [Obstructive sleep apnea (adult) (pediatric)] Onset: 1 02-20-2022 Chronic Residual codes; unclassified (1 source) Obstructive sleep apnea (adult) (pediatric); Translations: [VIC (obstructive sleep apnea)] Onset: 2 Chronic Respiratory failure; insufficiency; arrest (adult) (1 source) Respiratory failure; insufficiency; arrest (adult); Translations: [Renal failure, chronic, stage 3 (moderate) ([facility])] Onset: 8 Screening and history of mental health and substance abuse codes (2 sources) Personal history of nicotine dependence; Translations: [Personal history of nicotine dependence] Onset: 9 Episodic Thyroid disorders (6 sources) Hypothyroidism; Translations: [Hypothyroidism, unspecified] Onset: 8 12-28-2017 Chronic Unclassified (1 source) Unknown / UNK(Unknown) Onset: 7 Unclassified (1 source) 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); Translations: [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)] Onset: 9 Unclassified (1 source) 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); Translations: [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)] Onset: 9 Viral infection (1 source) COVID-19; Translations: [Other specified viral infection] 08-05-2023 Episodic Past or Other Problems Problem Classification Problem Date Documented Da te Episodic/Chronic Abdominal pain (20 sources) Right lower quadrant pain; Translations: [Right lower quadrant pain] Onset: 8 01-07-2018 Episodic Acute and unspecified renal failure (6 sources) Acute renal failure syndrome; Translations: [Acute kidney failure, unspecified] Onset: 8 02-13-2018 Episodic Acute myocardial infarction (3 sources) Myocardial infarction; Translations: [Non-ST elevation (NSTEMI) myocardial infarction] Onset: 8 Resolved: 8 12-28-2017 Chronic Cardiac dysrhythmias (20 sources) Palpitations; Translations: [Palpitations] Onset: 1 06-09-2021 Episodic Deficiency and other anemia (6 sources) Anemia; Translations: [Anemia, unspecified] Onset: 8 02-13-2018 Episodic Fluid and electrolyte disorders (6 sources) Hyperkalemia; Translations: [Hyperkalemia] Onset: 8 02-13-2018 Episodic Nonspecific chest pain (3 sources) Chest pain; Translations: [Chest pain, unspecified] Resolved: 8 12-28-2017 Episodic Other aftercare (20 sources) Drug-induced immunodeficiency ; Translations: [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ppressive medication] Onset: 8 08-27-2019 Episodic Other aftercare (3 sources) Other prison (current) drug therapy; Translations: [Other extermination supervisor (current) drug therapy] Onset: 9 Episodic Other circulatory disease (3 sources) O/E - BP reading low; Translations: [Hypotension, unspecified] Onset: 8 02-13-2018 Episodic Other circulatory disease (3 sources) Low blood pressure; Translations: [Hypotension, unspecified] Onset: 8 07-22-2022 Episodic Other connective tissue disease (20 sources) Pain in bilateral legs; Translations: [Pain in right leg] Onset: 7 11-28-2016 Episodic Other connective tissue disease (20 sources) Iliotibial band friction syndrome; Translations: [Iliotibial band syndrome, unspecified leg] Onset: 7 11-28-2016 Episodic Other connective tissue disease (1 source) Impingement syndrome of left shoulder; Translations: [Impingement syndrome of left shoulder] Onset: 3 Episodic Other connective tissue disease (1 source) Bursitis of left shoulder; Translations: [Bursitis of left shoulder] Onset: 3 Episodic Other connective tissue disease (1 source) Other enthesopathies, not elsewhere classified; Translations: [Tendinitis of left shoulder] Onset: 3 Episodic Other diseases of kidney and ureters (1 source) Other obstructive and reflux uropathy; Translations: [Benign prostatic hyperplasia with urinary obstruction] Onset: 2 Episodic Other screening for suspected conditions (not mental disorders or infectious disease) (20 sources) Patient encounter status; Translations: [Screening for lipoid disorders] Onset: 3 Episodic Phlebitis; thrombophlebitis and thromboembolism (20 sources) Deep venous thrombosis; Translations: [Acute embolism and thrombosis of unspecified deep veins of unspecified lower extremity] Onset: 0 12-08-2017 Episodic Residual codes; unclassified (20 sources) History of operative procedure on shoulder; Translations: [Other specified postprocedural states] Onset: 3 Episodic Residual codes; unclassified (1 source) Other specified postprocedural states; Translations: [S/P shoulder surgery] Onset: 3 Episodic Spondylosis; intervertebral disc disorders; other back problems (20 sources) Chronic low back pain; Translations: [Lumbago with sciatica, left side] Onset: 6 06-21-2016 Episodic Sprains and strains (20 sources) Traumatic rupture of rotator cuff; Translations: [Strain of muscle(s) and tendon(s) of the rotator cuff of left shoulder, initial encounter] Onset: 2 Episodic Unclassified (2 sources) Patient encounter status; Translations: [Screening cholesterol level] Results Test Name Value Interpretation Reference Range Facil ity Vital Signs Date Time Vital Sign Value Performing Clinician Facility 11-13-2023 08:49-0500 Body mass index (BMI) [Ratio] 27.89 kg/m2 Brigette Sellers MD Work Phone: [facility] 11-13-2023 08:49-0500 Body temperature 98.2 [degF] Brigette Sellers MD Work Phone: [facility] 11-13-2023 08:49-0500 Body weight 64.77 kg Brigette Sellers MD Work Phone: [facility] 11-13-2023 08:49-0500 Diastolic blood pressure 61 mm[Hg] Brigette Sellers MD Work Phone: [facility] 11-13-2023 08:49-0500 Heart rate 66 /min Brigette Sellers MD Work Phone: [facility] 11-13-2023 08:49-0500 SaO2% (BldA) [Mass fraction] 98 % Brigette Sellers MD Work Phone: [facility] 11-13-2023 08:49-0500 Systolic blood pressure 135 mm[Hg] Brigette Sellers MD Work Phone: [facility] 08-05-2023 15:29-0400 Body temperature 97.9 [degF] Estiven Cole MD Work Phone: [facility] 08-05-2023 15:29-0400 Body weight 61.6 kg Estiven Cole MD Work Phone: [facility] 08-05-2023 15:29-0400 Diastolic blood pressure 73 mm[Hg] Estiven Cole MD Work Phone: [facility] 08-05-2023 15:29-0400 Heart rate 64 /min Estiven Cole MD Work Phone: [facility] 08-05-2023 15:29-0400 Respiratory rate 18 /min Estiven Cole MD Work Phone: [facility] 08-05-2023 15:29-0400 SaO2% (BldA) [Mass fraction] 99 % Estiven Cole MD Work Phone: [facility] 08-05-2023 15:29-0400 Systolic blood pressure 141 mm[Hg] Estiven Cloe MD Work Phone: [facility] 05-27-2023 09:22-0400 Body height 165.1 cm Jennifer Sutton INSURANCE AND FINANCIAL SERVICES AGENT - [employer] ENGINEER Work Phone: [employer] [facility] 05-27-2023 09:22-0400 Body mass index (BMI) [Ratio] 23.81 kg/m2 Jennifer Sutton INSURANCE AND FINANCIAL SERVICES AGENT - [employer] ENGINEER Work Phone: [employer] [facility] 05-27-2023 09:22-0400 Body weight 64.91 kg Jennifer Sutton INSURANCE AND FINANCIAL SERVICES AGENT - [employer] ENGINEER Work Phone: [employer] [facility] 05-27-2023 09:22-0400 Heart rate 81 /min Jennifer Sutton INSURANCE AND FINANCIAL SERVICES AGENT - [employer] ENGINEER Work Phone: [employer] [facility] 05-27-2023 09:22-0400 Respiratory rate 18 /min Jennifer Sutton INSURANCE AND FINANCIAL SERVICES AGENT - [employer] ENGINEER Work Phone: [facility] Encounters Encounter Date Encounter Type Care Provider Facility Start: 11-13-2023 End: 11-13-2023 Office outpatient visit 25 minutes Brigette Sellers MD Work Phone: [facility] Procedures Date Procedure Procedure Detail Performing Clinician Start: 03-20-2023 STREP Александр MOLECULAR (POC) Olivia ackerman INSURANCE AND FINANCIAL SERVICES AGENT.[employer] ENGINEER Work Phone: Start: 03-20-2023 Dup-scan lxtr art/artl bpgs uni/lmtd study Asia Cha PA-C Work Phone: Start: 12-26-2022 Echo tthrc r-t 2d w/wom-mode compl spec&colr d Ledy Ivy MD Work Phone: Start: 12-10-2022 End: 12-10-2022 Ecg routine ecg w/least 12 lds i&r only [facility] Provider Start: 10-19-2022 Lipid 1996 panel - Serum or Plasma Prachi Doss DO Work Phone: Start: 09-24-2022 Arthrocentesis aspir&/inj major jt/bursa w/o us Maynor Baldwin MD Work Phone: Start: 06-07-2022 Arthrocentesis aspir&/inj major jt/bursa w/o Maynor Baldwin MD Work Phone: Start: 03-06-2022 Urnls dip stick/tablet rgnt auto w/o microscopy Laurie Badillo DO Work Phone: Start: 03-06-2022 End: 03-06-2022 Urnls dip stick/tablet rgnt auto w/o microscopy Sawyer Garay PA-C Work Phone: Start: 02-19-2022 Urnls dip stick/tablet rgnt auto w/o microscopy Diana Tate PA-C Work Phone: Start: 02-19-2022 Blood occult peroxidase actv qual feces 1-3 spec Diana Tate PA-C Work Phone: Start: 06-14-2021 Colonoscopy Sawyer Garay PA-C Work Phone: Start: 02-07-2021 Dup-scan lxtr art/artl bpgs compl bi study Guido Jauregui MD Work Phone: Start: 11-03-2020 CBC W Auto Differential panel - Blood Ashley Richard Start: 11-03-2020 Drug screen quantitative tacrolimus Ashley Richard Start: 11-03-2020 Renal function panel Ashley Garrettarabella Start: 07-05-2020 Dup-scan lxtr art/artl bpgs compl bi study Guido Jauregui Work Phone: Start: 03-01-2020 XA SPECIAL ANGIOGRAPHY PROCEDURE Sharifa Fer Vegas Work Phone: Start: 02-13-2018 History of renal transplant Kidney transplanted Guido Jauregui MD Work Phone: Start: 11-28-2012 History of renal transplant H/O kidney transplant Sawyer Garay PA-C Work Phone: History of renal transplant Kidney replaced by transplant Galindo Khan Work Phone: Plan of Treatment Date Care Activity Detail Author Start: 01-25-2032 DTaP/Tdap/Td Vaccines (3 - Td or Tdap) DTaP/Tdap/Td Vaccines (3 - Td or Tdap) [facility] Start: 01-25-2032 Urine microalbumin profile DTaP,Tdap,Td Vaccine (2 - Td or Tdap) [facility] Start: 06-14-2031 Colonoscopy COLONOSCOPY [facility] Start: 06-14-2031 COLORECTAL CANCER SCREENING COLORECTAL CANCER SCREENING [facility] Start: 10-19-2027 Lipid 1996 panel - Serum or Plasma Lipid Screening [facility] Start: 10-19-2027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 ([facility]) 08/22/2017 02/05/[address] Jauregui: no stenosis left fem-pop bypass. Unable to get CHEL due to non-compressible vesels11/12/[address] Zavala [facility]: RIGHT: resting CHEL > 1.81, non-compressible arteries; TBI 0.40 = PAD; Right ankle: Moderate disease at rest. Right iliofemoral disease. Severe disease noted, post exercise, by tracings. LEFT SIDE: resting CHEL 1.81, non-compressible vessels, CHEL not accurate. COPD (chronic obstructive pulmonary disease) ([facility]) Coronary atherosclerosis of unspecified type of vessel, [place] or graft Coronary artery disease Current mild episode of major depressive disorder ([facility]) 02/05/2019 Depression 03/07/2012 DVT (deep venous thrombosis) ([facility]) End stage renal disease ([facility]) Due to blocked ureter as child GERD (gastroesophageal reflux disease) 03/05/2014 Hyperhomocysteinemia ([facility]) 12/08/2017 Hyperparathyroidism ([facility]) 12/08/2017 Secondary to renal failure. On Sensipar in remote past. Kidney dialysis 1988, and 2000 Neurogenic bladder VIC (obstructive sleep apnea) 08/04/2011 declines CPAP Pulmonary embolism ([facility]) 10-12 years ago Pulmonary nodules Foreign body reaction in pulmonary vasculature, ? cause. Extensive evaluation ruled out vasculitis, fungal inffection, pneumoconiosis. May have been from gortex graft .Resulted in multiple pulmonary nodules. Radiculopathy, lumbar region 11/28/2016 Renal failure 02/20/2010 Renal failure, chronic, stage 3 (moderate) (HCC) folllowing renal transplant Renal stones Steroid long-term use Transplant kidney 1993 and 2009 Failed in 2000(right in , removed in ; left ) MEDICATIONS: Current Outpatient Medications Medication Sig Fluorouracil 5 % cream APPLY TO LEFT LOWER LIP 2X DAILY FOR 2 WEEKS. WASH HANDS IMMEDIATELY AFTER APPLYING. oxyCODONE-acetaminophen (PERCOCET) 5-325 mg tablet Take 1 tablet by mouth every 6 hours as needed for pain. alendronate (FOSAMAX) 70 mg tablet Take 1 tablet by mouth one time a week. Take with a full glass of water, on an empty stomach; do NOT lie down for 30minutes. atorvastatin (LIPITOR) 80 mg tablet Take 1 tablet by mouth daily at bedtime. albuterol HFA (PROVENTIL HFA, VENTOLIN HFA) 90 mcg/actuation inhaler INHALE 2 PUFFS BY MOUTH EVERY 6 HOURS NEEDED DIRECTED CARDURA XL 8 mg 24 hr tablet TAKE 1 TABLET BY MOUTH EVERY DAY WITH BREAKFAST predniSONE (DELTASONE) 5 mg tablet Take 1 tablet by mouth once daily. umeclidinium-vilanterol (ANORO ELLIPTA) 62.5-25 mcg/actuation inhaler INHALE 1 INHALATION INSTRUCTED ONCE DAILY. albuterol (PROVENTIL) 2.5 mg /3 mL (0.083 %) nebulizer solution Use 3 mL via nebulizer every 4 hours as needed for Wheezing/Shortness of Breath. Use over 5-15minutes. ASTAGRAF XL 0.5 mg capsule Take 2 mg by mouth once daily. amLODIPine (NORVASC) 5 mg tablet Take 5 mg by mouth once daily. carvedilol (COREG) 25 mg tablet Take 1 tablet by mouth twice daily with meals. omeprazole (PRILOSEC) 20 mg capsule Take 20 mg by mouth once daily. acetaminophen (TYLENOL) 500 mg tablet Take 500 mg by mouth every 8 hours as needed. mycophenolate mofetil (CELLCEPT) 250 mg capsule Take 500 mg by mouth twice daily. magnesium oxide 400 mg cap Take 1 capsule by mouth twice daily. ASPIRIN 81 MG TAB Take one(1) tablet daily. Current Facility-Administered Medications Medication Dose Route Frequency perflutren lipid microspheres 1.3 mL in NaCl (PF) 0.9% 10 mL injection (DEFINITY) INTRAVENOUS DIRECTED PRN sodium chloride 0.9 % (flush) 10 mL (BD POSIFLUSH) 10 mL INTRAVENOUS DIRECTED PRN ALLERGIES: ALLERGIES Allergen Reactions Bee Sting Hives, Swelling Darvocet-N 100 [Pro* Hives VITALS: BP 141/73 Pulse 64 Temp 36.6 C (97.9 F) Resp 18 Wt 61.6 kg (135 lb 12.8 oz) SpO2 99% BMI 22.60 kg/m PHYSICAL EXAM: GEN: mildly ill appearing HEENT: PERRL, EOMI, conjunctiva clear Ears: canals clear. TMs without erythema, bulge, or effusion Sinuses: non-tender frontal sinus, non-tender maxillary sinuses Throat: moist mucous membranes, mild erythema, no exudate Neck: supple, no thyromegaly, no lymphadenopathy HEART: regular rate and rhythm, no murmurs LUNGS: clear to auscultation, no wheezes or crackles, no increased WOB 05/27/2023: GFR MALE >90 mL/min/1.73m2 52 Abnormal ASSESSMENT/PLAN: 1. Acute COVID-19 - ICD9: 079.89, ICD10: U07.1 (primary diagnosis) He is beyond the window for anti-COVID medication. Continue supportive care. 2. COPD with exacerbation (HCC) - ICD9: 491.21, ICD10: J44.1 Refill - ALBUTEROL SULFATE 2.5 MG/3 ML (0.083 %) SOLUTION FOR NEBULIZATION - PREDNISONE 10 MG TABLET taper. Advised COVID illness increases the risk for blood clots and coronary events. Follow up with worsening cough, worsening shortness of breath, increasing chest pain, or late onset fever. Estiven Cole MD documented in this encounter [facility] 06-27-2023 Note HNO ID: [id number] Author: Jose Luis Arana APRN.[employer] ENGINEER Service: ? Author Type: Nurse Practitioner Type: Progress Notes Filed: 06/27/2023 3:08 PM Note Text: Subjective HPI HPI Marian Koch is a 53 year old male who presents today for CC of right great toe pain. This started 2 days ago. Has tried lifting ingrown toenail out for releif. Symptoms are worsened by touching the area. Risk factors hx of ingrown toenail. Denies fever and toe injury. .Patient presents with: right great toe pain: X 2 days PAST MEDICAL HISTORY Diagnosis Date CAD (coronary artery disease) 02/20/2010 Inactive since CABG. Last heart cath 2006, Dr. Demarco Summers 06/14/15 Lexiscan nuclear stress: no ischemia. Normal L and R sizes and systolic function. EF 56% 10/01/17ech. RV size NL, RVSF ocardiogram Dr. Dameon Mac: LV size NL, mild concenric LVH, EF 56%. RV size NL. RVSF NL. AI 1-2+ Claudication of both lower extremities (HCC) 08/22/2017 02/05/[address] Jauregui: no stenosis left fem-pop bypass. Unable to get CHEL due to non-compressible vesels11/12/[address] Zavala [facility]: RIGHT: resting CHEL > 1.81, non-compressible arteries; TBI 0.40 = PAD; Right ankle: Moderate disease at rest. Right iliofemoral disease. Severe disease noted, post exercise, by tracings. LEFT SIDE: resting CHEL 1.81, non-compressible vessels, CHEL not accurate. COPD (chronic obstructive pulmonary disease) ([facility]) Coronary atherosclerosis of unspecified type of vessel, [place] or graft Coronary artery disease Current mild episode of major depressive disorder ([facility]) 02/05/2019 Depression 03/07/2012 DVT (deep venous thrombosis) ([facility]) End stage renal disease ([facility]) Due to blocked ureter as child GERD (gastroesophageal reflux disease) 03/05/2014 Hyperhomocysteinemia ([facility]) 12/08/2017 Hyperparathyroidism ([facility]) 12/08/2017 Secondary to renal failure. On Sensipar in remote past. Kidney dialysis 1988, and 2000 Neurogenic bladder VIC (obstructive sleep apnea) 08/04/2011 declines CPAP Pulmonary embolism ([facility]) 10-12 years ago Pulmonary nodules Foreign body reaction in pulmonary vasculature, ? cause. Extensive evaluation ruled out vasculitis, fungal inffection, pneumoconiosis. May have been from gortex graft .Resulted in multiple pulmonary nodules. Radiculopathy, lumbar region 11/28/2016 Renal failure 02/20/2010 Renal failure, chronic, stage 3 (moderate) ([facility]) folllowing renal transplant Renal stones Steroid long-term use Transplant kidney 1993 and 2009 Failed in 2000(right in , removed in ; left ') PAST SURGICAL HISTORY Procedure Laterality Date CABG (4) VEIN GRAFTS AND ARTERIAL GRAFT(S) 2004 COLONOSCOPY FLX DX W/COLLJ SPEC WHEN PFRMD 06/14/[address] Dodge PERICARDIAL WINDOW, DRAINAGE 1991 RENAL ALLOTRANSPLANTATION W/ GRAFT W/O RECIPIENT NEPHRECTOMY 1993, repeat 2019. ALLERGIES Bee Sting and Darvocet-N 100 [Propoxyphene N-Acetaminophen] MEDICATIONS Fluorouracil 5 % creamAPPLY TO LEFT LOWER LIP 2X DAILY FOR 2 WEEKS. WASH HANDS IMMEDIATELY AFTER APPLYING.Disp: Rfl: oxyCODONE-acetaminophen (PERCOCET) 5-325 mg tabletTake 1 tablet by mouth every 6 hours as needed for pain.Disp: 25 tabletRfl: 0 alendronate (FOSAMAX) 70 mg tabletTake 1 tablet by mouth one time a week. Take with a full glass of water, on an empty stomach; do NOT lie down for 30minutes.Disp: 12 tabletRfl: 3 atorvastatin (LIPITOR) 80 mg tabletTake 1 tablet by mouth daily at bedtime.Disp: 90 tabletRfl: 3 albuterol HFA (PROVENTIL HFA, VENTOLIN HFA) 90 mcg/actuation inhalerINHALE 2 PUFFS BY MOUTH EVERY 6 HOURS NEEDED DIRECTEDDisp: 6.7 EachRfl: 5 CARDURA XL 8 mg 24 hr tabletTAKE 1 TABLET BY MOUTH EVERY DAY WITH BREAKFASTDisp: 90 tabletRfl: 3 predniSONE (DELTASONE) 5 mg tabletTake 1 tablet by mouth once daily.Disp: Rfl: umeclidinium-vilanterol (ANORO ELLIPTA) 62.5-25 mcg/actuation inhalerINHALE 1 INHALATION INSTRUCTED ONCE DAILY.Disp: 1 EachRfl: 11 albuterol (PROVENTIL) 2.5 mg /3 mL (0.083 %) nebulizer solutionUse 3 mL via nebulizer every 4 hours as needed for Wheezing/Shortness of Breath. Use over 5-15minutes.Disp: 1 PackageRfl: 2 ASTAGRAF XL 0.5 mg capsuleTake 2 mg by mouth once daily.Disp: Rfl: 11 amLODIPine (NORVASC) 5 mg tabletTake 5 mg by mouth once daily.Disp: Rfl: carvedilol (COREG) 25 mg tabletTake 1 tablet by mouth twice daily with meals.Disp: Rfl: 3 omeprazole (PRILOSEC) 20 mg capsuleTake 20 mg by mouth once daily.Disp: Rfl: acetaminophen (TYLENOL) 500 mg tabletTake 500 mg by mouth every 8 hours as needed.Disp: Rfl: mycophenolate mofetil (CELLCEPT) 250 mg capsuleTake 500 mg by mouth twice daily. Disp: Rfl: 0 magnesium oxide 400 mg capTake 1 capsule by mouth twice daily.Disp: Rfl: 0 ASPIRIN 81 MG TABTake one(1) tablet daily.Disp: 0Rfl: 0 doxycycline monohydrate 100 mg tabletTake 1 tablet by mouth twice daily for 7 days.Disp: 14 tabletRfl: 0 FAMILY HISTORY Problem Relation Age of Onset Arthriti (more content not included)... [facility] 06-26-2023 Note HNO ID: [id number] Author: Prachi Doss, DO Service: ? Author Type: Physician Type: Progress Notes Filed: 06/26/2023 3:29 PM Note Text: Follow Up Visit Chief Complaint Marian Koch is a 53 year old male who presents today for follow up office visit. Patient presents with: Left Shoulder - Follow Up, Pain History of Present Illness PAIN EVALUATION 06/25/2023 2151 Pain Level: 1 Pain Location: Shoulder-Left Description: Sore;Dull;Aching Duration Amount of Time: -- DOS: 01/03/23 Frequency: Intermittent Intervention/Comfort measure: -- HEP, HPI: Marian Koch is a 53 year old male for a follow up visit s/p 6 months out from shoulder RCR, SAD/S, biceps tenodesis. Patient was doing well until a few weeks ago. He woke up with some soreness after having bronchitis. Continues to have some soreness with certain movements. Pain history is noted as above. Is there any overall improvement in your condition? Yes, Any new injury, since being seen last: No REVIEW OF SYMPTOMS: Patient did not have, and does not currently have, any weight loss, malaise, fever, chills, headache, chest pain, chest pressure, palpitations, cough, shortness of breath, orthopnea, paroxsymal nocturnal dyspnea, nausea, vomiting, diarrhea, constipation, melena, hematochezia, urinary difficulties, prolonged bleeding, easily bruising, heat or cold intolerance, new onset joint pain or swelling, new onset extremity weakness or numbness, new onset auditory or visual disturbances, lightheadedness, dizziness, partial loss of consciousness or full loss of consciousness. Current Outpatient Medications Medication Sig alendronate (FOSAMAX) 70 mg tablet Take 1 tablet by mouth one time a week. Take with a full glass of water, on an empty stomach; do NOT lie down for 30minutes. atorvastatin (LIPITOR) 80 mg tablet Take 1 tablet by mouth daily at bedtime. albuterol HFA (PROVENTIL HFA, VENTOLIN HFA) 90 mcg/actuation inhaler INHALE 2 PUFFS BY MOUTH EVERY 6 HOURS NEEDED DIRECTED CARDURA XL 8 mg 24 hr tablet TAKE 1 TABLET BY MOUTH EVERY DAY WITH BREAKFAST albuterol (PROVENTIL) 2.5 mg /3 mL (0.083 %) nebulizer solution Use 3 mL via nebulizer every 4 hours as needed for Wheezing/Shortness of Breath. Use over 5-15minutes. ASTAGRAF XL 0.5 mg capsule Take 2 mg by mouth once daily. omeprazole (PRILOSEC) 20 mg capsule Take 20 mg by mouth once daily. acetaminophen (TYLENOL) 500 mg tablet Take 500 mg by mouth every 8 hours as needed. mycophenolate mofetil (CELLCEPT) 250 mg capsule Take 500 mg by mouth twice daily. magnesium oxide 400 mg cap Take 1 capsule by mouth twice daily. ASPIRIN 81 MG TAB Take one(1) tablet daily. Fluorouracil 5 % cream APPLY TO LEFT LOWER LIP 2X DAILY FOR 2 WEEKS. WASH HANDS IMMEDIATELY AFTER APPLYING. oxyCODONE-acetaminophen (PERCOCET) 5-325 mg tablet Take 1 tablet by mouth every 6 hours as needed for pain. predniSONE (DELTASONE) 5 mg tablet Take 1 tablet by mouth once daily. umeclidinium-vilanterol (ANORO ELLIPTA) 62.5-25 mcg/actuation inhaler INHALE 1 INHALATION INSTRUCTED ONCE DAILY. amLODIPine (NORVASC) 5 mg tablet Take 5 mg by mouth once daily. carvedilol (COREG) 25 mg tablet Take 1 tablet by mouth twice daily with meals. Current Facility-Administered Medications Medication Dose Route Frequency perflutren lipid microspheres 1.3 mL in NaCl (PF) 0.9% 10 mL injection (DEFINITY) INTRAVENOUS DIRECTED PRN sodium chloride 0.9 % (flush) 10 mL (BD POSIFLUSH) 10 mL INTRAVENOUS DIRECTED PRN Physical Exam Vitals: There were no vitals taken for this visit. Psych: Pleasant, good affect and mood General Appearance: Well appearing, alert, in no acute distress, well-hydrated, well nourished.. Skin: Skin color, texture, turgor normal, no suspicious rashes or lesions. Peripheral Pulses: Normal. Neurologic: Gait normal. Reflexes normal and symmetric. Sensation grossly intact.. Lymph Nodes: No cervical lymphadenopathy, No supraclavicular lymphadenopathy, No axillary lymphadenopathy., and No inguinal lymphadenopathy.. Respiratory: No recent pulmonary infection, hemoptysis, chronic cough, or shortness of breath at rest Rheumatologic: Joint deformities: left shoulder pain Right Shoulder Exam Right shoulder exam is normal. Tenderness The patient is experiencing no tenderness. Range of Motion Active abduction: normal Passive abduction: normal Extension: normal External rotation: normal Forward flexion: normal Internal rotation 0 degrees: normal Internal rotation 90 degrees: normal Muscle Strength Abduction: 5/5 Internal rotation: 5/5 External rotation: 5/5 Supraspinatus: 5/5 Subscapularis: 5/5 Biceps: 5/5 Tests Apprehension: negative Woodard test: negative Cross arm: negative Impingement: negative Other Erythema: absent Sensation: normal Pulse: present Comments: B/l med, uln, rad, ax nerves intact Lef (more content not included)... [facility] 06-26-2023 History of Present illness Narrative Images from the original note were not included. Follow Up Visit Chief Complaint Marian Koch is a 53 year old male who presents today for follow up office visit. Patient presents with: Left Shoulder - Follow Up, Pain History of Present Illness PAIN EVALUATION 06/25/2023 2151 Pain Level: 1 Pain Location: Shoulder-Left Description: Sore;Dull;Aching Duration Amount of Time: -- DOS: 01/03/23 Frequency: Intermittent Intervention/Comfort measure: -- HEP, HPI: Marian Koch is a 53 year old male for a follow up visit s/p 6 months out from LT shoulder RCR, SAD/S, biceps tenodesis. Patient was doing well until a few weeks ago. He woke up with some soreness after having bronchitis. Continues to have some soreness with certain movements. Pain history is noted as above. Is there any overall improvement in your condition? Yes, Any new injury, since being seen last: No REVIEW OF SYMPTOMS: Patient did not have, and does not currently have, any weight loss, malaise, fever, chills, headache, chest pain, chest pressure, palpitations, cough, shortness of breath, orthopnea, paroxsymal nocturnal dyspnea, nausea, vomiting, diarrhea, constipation, melena, hematochezia, urinary difficulties, prolonged bleeding, easily bruising, heat or cold intolerance, new onset joint pain or swelling, new onset extremity weakness or numbness, new onset auditory or visual disturbances, lightheadedness, dizziness, partial loss of consciousness or full loss of consciousness. Current Outpatient Medications Medication Sig alendronate (FOSAMAX) 70 mg tablet Take 1 tablet by mouth one time a week. Take with a full glass of water, on an empty stomach; do NOT lie down for 30minutes. atorvastatin (LIPITOR) 80 mg tablet Take 1 tablet by mouth daily at bedtime. albuterol HFA (PROVENTIL HFA, VENTOLIN HFA) 90 mcg/actuation inhaler INHALE 2 PUFFS BY MOUTH EVERY 6 HOURS NEEDED DIRECTED CARDURA XL 8 mg 24 hr tablet TAKE 1 TABLET BY MOUTH EVERY DAY WITH BREAKFAST albuterol (PROVENTIL) 2.5 mg /3 mL (0.083 %) nebulizer solution Use 3 mL via nebulizer every 4 hours as needed for Wheezing/Shortness of Breath. Use over 5-15minutes. ASTAGRAF XL 0.5 mg capsule Take 2 mg by mouth once daily. omeprazole (PRILOSEC) 20 mg capsule Take 20 mg by mouth once daily. acetaminophen (TYLENOL) 500 mg tablet Take 500 mg by mouth every 8 hours as needed. mycophenolate mofetil (CELLCEPT) 250 mg capsule Take 500 mg by mouth twice daily. magnesium oxide 400 mg cap Take 1 capsule by mouth twice daily. ASPIRIN 81 MG TAB Take one(1) tablet daily. Fluorouracil 5 % cream APPLY TO LEFT LOWER LIP 2X DAILY FOR 2 WEEKS. WASH HANDS IMMEDIATELY AFTER APPLYING. oxyCODONE-acetaminophen (PERCOCET) 5-325 mg tablet Take 1 tablet by mouth every 6 hours as needed for pain. predniSONE (DELTASONE) 5 mg tablet Take 1 tablet by mouth once daily. umeclidinium-vilanterol (ANORO ELLIPTA) 62.5-25 mcg/actuation inhaler INHALE 1 INHALATION INSTRUCTED ONCE DAILY. amLODIPine (NORVASC) 5 mg tablet Take 5 mg by mouth once daily. carvedilol (COREG) 25 mg tablet Take 1 tablet by mouth twice daily with meals. Current Facility-Administered Medications Medication Dose Route Frequency perflutren lipid microspheres 1.3 mL in NaCl (PF) 0.9% 10 mL injection (DEFINITY) INTRAVENOUS DIRECTED PRN sodium chloride 0.9 % (flush) 10 mL (BD POSIFLUSH) 10 mL INTRAVENOUS DIRECTED PRN Physical Exam Vitals: There were no vitals taken for this visit. Psych: Pleasant, good affect and mood General Appearance: Well appearing, alert, in no acute distress, well-hydrated, well nourished.. Skin: Skin color, texture, turgor normal, no suspicious rashes or lesions. Peripheral Pulses: Normal. Neurologic: Gait normal. Reflexes normal and symmetric. Sensation grossly intact.. Lymph Nodes: No cervical lymphadenopathy, No supraclavicular lymphadenopathy, No axillary lymphadenopathy., and No inguinal lymphadenopathy.. Respiratory: No recent pulmonary infection, hemoptysis, chronic cough, or shortness of breath at rest Rheumatologic: Joint deformities: left shoulder pain Right Shoulder Exam Right shoulder exam is normal. Tenderness The patient is experiencing no tenderness. Range of Motion Active abduction: normal Passive abduction: normal Extension: normal External rotation: normal Forward flexion: normal Internal rotation 0 degrees: normal Internal rotation 90 degrees: normal Muscle Strength Abduction: 5/5 Internal rotation: 5/5 External rotation: 5/5 Supraspinatus: 5/5 Subscapularis: 5/5 Biceps: 5/5 Tests Apprehension: negative Woodard test: negative Cross arm: negative Impingement: negative Other Erythema: absent Sensation: normal Pulse: present Comments: B/l med, uln, rad, ax nerves intact Left Shoulder Exam Left shoulder exam is normal. Tenderness The patient is experiencing no tenderness. Range of Motion Active abduction: normal Passive abduction: normal Extension: normal External rotation: normal Forward flexion: normal Internal rotation 0 degrees: normal Internal rotation 90 degrees: normal Muscle Strength Abduction: 5/5 Internal rotation: 5/5 External rotation: 5/5 Supraspinatus: 5/5 Subscapularis: 5/5 Biceps: 5/5 Tests Apprehension: negative Woodard test: negative Cross arm: negative Impingement: negative Other Erythema: absent Sensation: normal Pulse: present Assessment and Plan Radiographs: No imaging to review. Impression: Encounter Diagnosis ICD-10-CM 1. S/P left rotator cuff repair Z98.890 Today, in detail, through a thorough evaluation, we discussed possible etiologies of pain and our plans for further diagnostic and therapeutic interventions. We discussed strategies for decreasing pain and improving strength, stability and motion. Patient's questions were answered in detailed. Patient verbalizes understanding and agrees with the treatment plan as discussed. Cont hep Free to live life and do whatever activities at this point Patient aware and in agreement of plan. All questions answered. Has evaluation with kidney doctor at as cyst seen on imaging Prachi Ortiz.P.H. documented in this encounter [facility] 05-30-2023 Telephone encounter Note Patient scheduled for PVR 06/11/23 8:20 @ [address] Left message with prep. Appt reminder mailed. [facility] 05-30-2023 Miscellaneous Notes Patient scheduled for PVR 06/11/23 8:20 @ [address] Left message with prep. Appt reminder mailed. documented in this encounter [facility] 05-27-2023 History of Present illness Narrative [facility] Vascular Surgery Follow-up Office Visit CHIEF COMPLAINT: Chief Complaint Patient presents with Follow-up recall arterial duplex 03/20/23 HISTORY OF PRESENT ILLNESS: Marian Koch is a 53 y.o. male who returns today for follow-up for lower extremity PAD. Hx of left to right fem fem [place] [address] Jauregui. Last OV 01/2022. Here for recall appointment. Pt states that he has been experiencing increased leg pain with ambulation. This has been worsening over the past 6 months. It is reminiscent of his pain prior to his femoral bypass. He notices when he walks he gets cramping in both calves that then radiates up into his thighs and hips. He needs to stand and rest for a few minutes for it to resolve. 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 He denies any rest pain or slow/nonhealing ulcerations. He does endorse low back pain--but notices that more with just standing Recent arterial duplex 03/20/23 notes a patent left to right fem fem bypass. 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 Chest pain CHF (congestive heart failure) ([facility]) ([facility]) CKD (chronic kidney disease) stage 3, GFR 30-59 ml/min ([facility]) COPD (chronic obstructive pulmonary disease) ([facility]) ESRD (end stage renal disease) ([facility]) s/p renal transplant GERD (gastroesophageal reflux disease) History of blood transfusion History of renal transplant HTN (hypertension) Hx of blood clots hx PE 15 YRS AGO Immunosuppressed status ([facility]) Neurogenic bladder NSTEMI (non-ST elevated myocardial infarction) ([facility]) ([facility]) 12/27/2017 Past Surgical History: Past Surgical History: Procedure Laterality Date BLADDER SURGERY CARDIAC CATHETERIZATION 1992, 2006, 2018 COLONOSCOPY CORONARY ARTERY BYPASS GRAFT 2006 DIALYSIS FISTULA CREATION multiples B/L UE DIALYSIS FISTULA CREATION Right 07/24/2002 Dr. Luong FEMORAL BYPASS 02/11/2018 ([facility]) OTHER SURGICAL HISTORY Bilateral 01/24/2018 CO2 angiogram w/ bilat run off PERICARDIUM SURGERY pericardiectomy/pericardial window TRANSPLANTATION RENAL Right 02/28/1994 Dr. Jacob TRANSPLANTATION RENAL 02/28/1994, 03/18/2010 VASCULAR SURGERY Right 11/23/2007 RT UA AV Graft Dr. Luong Current Medications: Current Outpatient Medications: acetaminophen (Tylenol) 500 MG tablet, Take 500 mg by mouth every 8 hours as needed., Disp: , Rfl: albuterol 108 (90 Base) MCG/ACT inhaler, INHALE 2 PUFFS BY MOUTH EVERY 6 HOURS NEEDED DIRECTED, Disp: , Rfl: amLODIPine (Norvasc) 5 MG tablet, Take 5 mg by mouth daily., Disp: , Rfl: Aspirin 81 MG capsule, Take 81 mg by mouth daily., Disp: , Rfl: atorvastatin (Lipitor) 80 MG tablet, Take 80 mg by mouth Nightly., Disp: , Rfl: doxazosin (Cardura) 8 MG tablet, , Disp: , Rfl: fluorouracil (Efudex) 5 % cream, APPLY TO LEFT LOWER LIP 2X DAILY FOR 2 WEEKS. WASH HANDS IMMEDIATELY AFTER APPLYING., Disp: , Rfl: omeprazole (PriLOSEC) [address] capsule, Take 20 mg by mouth in the morning., Disp: , Rfl: alendronate (Fosamax) 70 MG tablet, Take 70 mg by mouth once a week., Disp: , Rfl: Allergies: Bee venom and Propoxyphene Social History: Social History Socioeconomic History Marital status: Spouse name: Not on file Number of children: Not on file Years of education: Not on file Highest education level: Not on file Occupational History Not on file Tobacco Use Smoking status: Former Packs/day: 1.00 Types: Cigarettes Quit date: 10/07/2010 Years since quittin.6 Smokeless tobacco: Current Substance and Sexual Activity Alcohol use: No Drug use: No Sexual activity: Not on file Other Topics Concern Not on file Social History Narrative Not on file Social Determinants of Health Financial Resource Strain: Not on file Food Insecurity: Not on file Transportation Needs: Not on file Physical Activity: Not on file Stress: Not on file Social Connections: Not on file Intimate Partner Violence: Not on file Housing Stability: Not on file Family History: Family History Problem Relation Name Age of Onset Cancer Father High Blood Pressure Mother Cancer Mother REVIEW OF SYSTEMS: Review of Systems Constitutional: Negative. HENT: Negative. Eyes: Negative. Respiratory: Negative. Cardiovascular: Positive for leg swelling (both legs). Gastrointestinal: Negative. Endocrine: Negative. Genitourinary: Negative. Musculoskeletal: Negative. Skin: Negative. Allergic/Immunologic: Negative. Neurological: Positive for weakness (both legs). Hematological: Negative. Psychiatric/Behavioral: Negative. LABS: No results found for: CREATININE No results found for: WBC, HGB, HCT, MCV, PLT No results found for: INR, PROTIME No results found for: VLDL PHYSICAL EXAM: Vitals: 05/27/23 0922 Pulse: 81 Resp: 18 Physical Exam Constitutional: Appearance: Normal appearance. Neck: Vascular: No carotid bruit. Cardiovascular: Rate and Rhythm: Normal rate and regular rhythm. Pulses: Carotid pulses are 2+ on the right side and 2+ on the left side. Radial pulses are 2+ on the right side and 2+ on the left side. Femoral pulses are 2+ on the right side and 2+ on the left side. Popliteal pulses are 0 on the right side and 0 on the left side. Dorsalis pedis pulses are detected w/ Doppler on the right side and detected w/ Doppler on the left side. Posterior tibial pulses are detected w/ Doppler on the right side and detected w/ Doppler on the left side. Heart sounds: No murmur heard. Pulmonary: Effort: Pulmonary effort is normal. No respiratory distress. Breath sounds: Normal breath sounds. Abdominal: General: Abdomen is flat. There is no distension. Palpations: There is no pulsatile mass. Tenderness: There is no abdominal tenderness. There is no guarding. Musculoskeletal: General: Normal range of motion. Cervical back: Normal range of motion and neck supple. Right lower leg: No edema. Left lower leg: No edema. Skin: General: Skin is warm and dry. Neurological: Mental Status: He is alert and oriented to person, place, and time. Psychiatric: Mood and Affect: Mood normal. Behavior: Behavior normal. Imaging Arterial Duplex 03/20/23 Patent left to right fem-fem bypass graft with normal velocities (low at outflow but increases in proximal FA, distal to outflow). Right side findings: Resting CHEL is non-compressible. Left side findings: Resting CHEL is non-compressible. ASSESSMENT/PLAN: Problem List Items Addressed This Visit Circulatory Atherosclerosis of artery of extremity with intermittent claudication (HCC) - Primary Relevant Orders Vascular US lower extremity arterial PVR with exercise 1. Follow up of lower extremity PAD Pt describing worsening claudication--no rest pain. Current imaging study notes a patent fem fem bypass but non-compressible vessels. Pt with hx of kidney transplant--would be unable to obtain a CTA. Discussed with Dr Jauregui--will start with a formal PVR in effort to further assess. Pt should continue on ASA/Statin and f/u with PCP for further atherosclerotic risk factor reduction Highly recommend continued avoidance of all tobacco or nicotine products Meticulous foot care was emphasized and the patient was instructed to call if he develops a non-healing foot wound of any kind I instructed the patient to continue to walk daily Will call patient with results of testing. . documented in this encounter [facility] 03-29-2023 Note HNO ID: [id number] Author: Prachi Doss, DO Service: ? Author Type: Physician Type: Progress Notes Filed: 03/29/2023 9:35 AM Note Text: Follow Up Visit Chief Complaint Marian Koch is a 53 year old male who presents today for follow up office visit. Patient presents with: Left Shoulder - Follow Up, Pain History of Present Illness PAIN EVALUATION 03/29/2023 0925 Pain Level: 0 Pain Location: Shoulder-Left Duration Amount of Time: -- DOS: 01/03/23 HPI: Marian Koch is a 53 year old male for a follow up visit S/P Left shoulder arthroscopy, rc repair, sad/acromioplasty, biceps tenodesis on 01/03/23. Patient states he is doing very well. Complains of no pain or complications. Pain history is noted as above. Is there any overall improvement in your condition? Yes, pain and function Any new injury, since being seen last: No REVIEW OF SYMPTOMS: Patient did not have, and does not currently have, any weight loss, malaise, fever, chills, headache, chest pain, chest pressure, palpitations, cough, shortness of breath, orthopnea, paroxsymal nocturnal dyspnea, nausea, vomiting, diarrhea, constipation, melena, hematochezia, urinary difficulties, prolonged bleeding, easily bruising, heat or cold intolerance, new onset joint pain or swelling, new onset extremity weakness or numbness, new onset auditory or visual disturbances, lightheadedness, dizziness, partial loss of consciousness or full loss of consciousness. Current Outpatient Medications Medication Sig Fluorouracil 5 % cream APPLY TO LEFT LOWER LIP 2X DAILY FOR 2 WEEKS. WASH HANDS IMMEDIATELY AFTER APPLYING. alendronate (FOSAMAX) 70 mg tablet Take 1 tablet by mouth one time a week. Take with a full glass of water, on an empty stomach; do NOT lie down for 30minutes. atorvastatin (LIPITOR) 80 mg tablet Take 1 tablet by mouth daily at bedtime. albuterol HFA (PROVENTIL HFA, VENTOLIN HFA) 90 mcg/actuation inhaler INHALE 2 PUFFS BY MOUTH EVERY 6 HOURS NEEDED DIRECTED CARDURA XL 8 mg 24 hr tablet TAKE 1 TABLET BY MOUTH EVERY DAY WITH BREAKFAST predniSONE (DELTASONE) 5 mg tablet Take 1 tablet by mouth once daily. umeclidinium-vilanterol (ANORO ELLIPTA) 62.5-25 mcg/actuation inhaler INHALE 1 INHALATION INSTRUCTED ONCE DAILY. albuterol (PROVENTIL) 2.5 mg /3 mL (0.083 %) nebulizer solution Use 3 mL via nebulizer every 4 hours as needed for Wheezing/Shortness of Breath. Use over 5-15minutes. ASTAGRAF XL 0.5 mg capsule Take 2 mg by mouth once daily. amLODIPine (NORVASC) 5 mg tablet Take 5 mg by mouth once daily. carvedilol (COREG) 25 mg tablet Take 1 tablet by mouth twice daily with meals. omeprazole (PRILOSEC) 20 mg capsule Take 20 mg by mouth once daily. acetaminophen (TYLENOL) 500 mg tablet Take 500 mg by mouth every 8 hours as needed. mycophenolate mofetil (CELLCEPT) 250 mg capsule Take 500 mg by mouth twice daily. magnesium oxide 400 mg cap Take 1 capsule by mouth twice daily. ASPIRIN 81 MG TAB Take one(1) tablet daily. oxyCODONE-acetaminophen (PERCOCET) 5-325 mg tablet Take 1 tablet by mouth every 6 hours as needed for pain. Current Facility-Administered Medications Medication Dose Route Frequency perflutren lipid microspheres 1.3 mL in NaCl (PF) 0.9% 10 mL injection (DEFINITY) INTRAVENOUS DIRECTED PRN sodium chloride 0.9 % (flush) 10 mL (BD POSIFLUSH) 10 mL INTRAVENOUS DIRECTED PRN Physical Exam Vitals: There were no vitals taken for this visit. Psych: Pleasant, good affect and mood General Appearance: Well appearing, alert, in no acute distress, well-hydrated, well nourished.. Skin: Skin color, texture, turgor normal, no suspicious rashes or lesions. Peripheral Pulses: Normal. Neurologic: Gait normal. Reflexes normal and symmetric. Sensation grossly intact.. Lymph Nodes: No cervical lymphadenopathy, No supraclavicular lymphadenopathy, No axillary lymphadenopathy., and No inguinal lymphadenopathy.. Respiratory: No recent pulmonary infection, hemoptysis, chronic cough, or shortness of breath at rest Rheumatologic: Joint deformities: left shoulder repair Right Shoulder Exam Right shoulder exam is normal. Tenderness The patient is experiencing no tenderness. Range of Motion Active abduction: normal Passive abduction: normal Extension: normal External rotation: normal Forward flexion: normal Internal rotation 0 degrees: normal Internal rotation 90 degrees: normal Muscle Strength Abduction: 5/5 Internal rotation: 5/5 External rotation: 5/5 Supraspinatus: 5/5 Subscapularis: 5/5 Biceps: 5/5 Tests Apprehension: negative Woodard test: negative Cross arm: negative Impingement: negative Other Erythema: absent Sensation: normal Pulse: present Comments: B/l med, uln, rad, ax nerves intact Left Shoulder Exam Left shoulder exam is normal. Tenderness The patient is experiencing no tenderness. Range of Motion Active abdu (more content not included)... [facility] 03-29-2023 History of Present illness Narrative Images from the original note were not included. Follow Up Visit Chief Complaint Marian Koch is a 53 year old male who presents today for follow up office visit. Patient presents with: Left Shoulder - Follow Up, Pain History of Present Illness PAIN EVALUATION 03/29/2023 0925 Pain Level: 0 Pain Location: Shoulder-Left Duration Amount of Time: -- DOS: 01/03/23 HPI: Marian Koch is a 53 year old male for a follow up visit S/P Left shoulder arthroscopy, rc repair, sad/acromioplasty, biceps tenodesis on 01/03/23. Patient states he is doing very well. Complains of no pain or complications. Pain history is noted as above. Is there any overall improvement in your condition? Yes, pain and function Any new injury, since being seen last: No REVIEW OF SYMPTOMS: Patient did not have, and does not currently have, any weight loss, malaise, fever, chills, headache, chest pain, chest pressure, palpitations, cough, shortness of breath, orthopnea, paroxsymal nocturnal dyspnea, nausea, vomiting, diarrhea, constipation, melena, hematochezia, urinary difficulties, prolonged bleeding, easily bruising, heat or cold intolerance, new onset joint pain or swelling, new onset extremity weakness or numbness, new onset auditory or visual disturbances, lightheadedness, dizziness, partial loss of consciousness or full loss of consciousness. Current Outpatient Medications Medication Sig Fluorouracil 5 % cream APPLY TO LEFT LOWER LIP 2X DAILY FOR 2 WEEKS. WASH HANDS IMMEDIATELY AFTER APPLYING. alendronate (FOSAMAX) 70 mg tablet Take 1 tablet by mouth one time a week. Take with a full glass of water, on an empty stomach; do NOT lie down for 30minutes. atorvastatin (LIPITOR) 80 mg tablet Take 1 tablet by mouth daily at bedtime. albuterol HFA (PROVENTIL HFA, VENTOLIN HFA) 90 mcg/actuation inhaler INHALE 2 PUFFS BY MOUTH EVERY 6 HOURS NEEDED DIRECTED CARDURA XL 8 mg 24 hr tablet TAKE 1 TABLET BY MOUTH EVERY DAY WITH BREAKFAST predniSONE (DELTASONE) 5 mg tablet Take 1 tablet by mouth once daily. umeclidinium-vilanterol (ANORO ELLIPTA) 62.5-25 mcg/actuation inhaler INHALE 1 INHALATION INSTRUCTED ONCE DAILY. albuterol (PROVENTIL) 2.5 mg /3 mL (0.083 %) nebulizer solution Use 3 mL via nebulizer every 4 hours as needed for Wheezing/Shortness of Breath. Use over 5-15minutes. ASTAGRAF XL 0.5 mg capsule Take 2 mg by mouth once daily. amLODIPine (NORVASC) 5 mg tablet Take 5 mg by mouth once daily. carvedilol (COREG) 25 mg tablet Take 1 tablet by mouth twice daily with meals. omeprazole (PRILOSEC) 20 mg capsule Take 20 mg by mouth once daily. acetaminophen (TYLENOL) 500 mg tablet Take 500 mg by mouth every 8 hours as needed. mycophenolate mofetil (CELLCEPT) 250 mg capsule Take 500 mg by mouth twice daily. magnesium oxide 400 mg cap Take 1 capsule by mouth twice daily. ASPIRIN 81 MG TAB Take one(1) tablet daily. oxyCODONE-acetaminophen (PERCOCET) 5-325 mg tablet Take 1 tablet by mouth every 6 hours as needed for pain. Current Facility-Administered Medications Medication Dose Route Frequency perflutren lipid microspheres 1.3 mL in NaCl (PF) 0.9% 10 mL injection (DEFINITY) INTRAVENOUS DIRECTED PRN sodium chloride 0.9 % (flush) 10 mL (BD POSIFLUSH) 10 mL INTRAVENOUS DIRECTED PRN Physical Exam Vitals: There were no vitals taken for this visit. Psych: Pleasant, good affect and mood General Appearance: Well appearing, alert, in no acute distress, well-hydrated, well nourished.. Skin: Skin color, texture, turgor normal, no suspicious rashes or lesions. Peripheral Pulses: Normal. Neurologic: Gait normal. Reflexes normal and symmetric. Sensation grossly intact.. Lymph Nodes: No cervical lymphadenopathy, No supraclavicular lymphadenopathy, No axillary lymphadenopathy., and No inguinal lymphadenopathy.. Respiratory: No recent pulmonary infection, hemoptysis, chronic cough, or shortness of breath at rest Rheumatologic: Joint deformities: left shoulder repair Right Shoulder Exam Right shoulder exam is normal. Tenderness The patient is experiencing no tenderness. Range of Motion Active abduction: normal Passive abduction: normal Extension: normal External rotation: normal Forward flexion: normal Internal rotation 0 degrees: normal Internal rotation 90 degrees: normal Muscle Strength Abduction: 5/5 Internal rotation: 5/5 External rotation: 5/5 Supraspinatus: 5/5 Subscapularis: 5/5 Biceps: 5/5 Tests Apprehension: negative Woodard test: negative Cross arm: negative Impingement: negative Other Erythema: absent Sensation: normal Pulse: present Comments: B/l med, uln, rad, ax nerves intact Left Shoulder Exam Left shoulder exam is normal. Tenderness The patient is experiencing no tenderness. Range of Motion Active abduction: normal Passive abduction: normal Extension: normal External rotation: normal Forward flexion: normal Internal rotation 0 degrees: normal Internal rotation 90 degrees: normal Muscle Strength Abduction: 5/5 Internal rotation: 5/5 External rotation: 5/5 Supraspinatus: 5/5 Subscapularis: 5/5 Biceps: 5/5 Tests Apprehension: negative Woodard test: negative Cross arm: negative Impingement: negative Other Erythema: absent Sensation: normal Pulse: present Assessment and Plan Radiographs: No imaging to review. Impression: Encounter Diagnosis ICD-10-CM 1. Postoperative pain G89.18 2. S/P left rotator cuff repair Z98.890 3. S/P shoulder surgery Z98.890 4. Chronic left shoulder pain M25.512 G89.29 5. Traumatic incomplete tear of left rotator cuff, initial encounter S46.012A 6. Impingement syndrome of left shoulder M75.42 Today, in detail, through a thorough evaluation, we discussed possible etiologies of pain and our plans for further diagnostic and therapeutic interventions. We discussed strategies for decreasing pain and improving strength, stability and motion. Patient's questions were answered in detailed. Patient verbalizes understanding and agrees with the treatment plan as discussed. S/p left shoulder repair, doing well Reviewed PT notes and is doing HEP Follow up in 3 months or sooner if issues arise Patient aware and in agreement of plan. All questions answered. Prachi Goldberg.Gurvinder. M.P.H. documented in this encounter [facility] 03-28-2023 Note HNO ID: [id number] Author: Lazaro Gonzalez PT Service: ? Author Type: Physical Therapist Type: Progress Notes Filed: 03/28/2023 8:31 AM Note Text: Episode Visit Count: 10 Therapist That Will Accept/Oversee The Plan Of Care: Lazaro Gonzalez Start of Care Date: 01/25/23 Onset Date: 04/20/22 Patient Identified by Name and Date of : Yes REHABILITATION AND SPORTS THERAPY PHYSICAL THERAPY DISCONTINUANCE OF CARE PLAN OF CARE UPDATE: Assessment: Marian Dsouza [place] is discontinued from Physical Therapy services due to goal achievement.. Patient was seen for 10 visits from Start of Care Date: 01/25/23 to 03/28/2023 and treatment included: Therapeutic exercise, Manual therapy, Self-fdc management, and Patient/Family/Caregiver Education. Goals updated 03/28/2023 Goals for Episode of Care: created on 01/25/23 through 05/17/23 Pt will be able to complete work duties without pain or any functional limitations in 14 weeks or less - Met so far [place] in home exercise program. - Met so far Perform reaching overhead without pain. - Progressing, will continue Increase ROM of L shoulder to 0-160 degrees or more of elevation for return to PLOF - Met Increased strength of LUE to 5/5 via MMT for ease of lifting objects, getting dressed, and washing hair - Nearly Met SUBJECTIVE: Patient Reason for Visit: Pt feels 95% improved since surgery. Still avoiding picking up heavy objects. Pt wants to be done with therapy and take things on his own. Patient Goals: decrease pain Functional Limitations: nothing Prior Level of Function: Independent without limitations Intake Information: Prescription present Previous Treatment: Surgery Pain: Pain Pain Level: 0 Pain Location: Shoulder - Left PROMIS Scales Higher is Better 03/25/2023 01/24/2023 09/19/2022 Phys Func - Score 43 (mild dysfunction) 36 (moderate dysfunction) 35 (moderate dysfunction) Phys Func - Percentile 24 % 8 % 7 % Self-Eff Symptom - Score 48 (Average) 36 (Low) 36 (Low) Self-Eff Symptom - Percentile 42 % 8 % 8 % T-scores: mean of general population = 50. 5 points is clinically meaningfully difference Percentiles provide an indication of how the patient's score ranks in relation to the general population. Higher percentile rankings indicate better function/quality of life. 50th percentile is the average of the general population and indicates half of respondents had a worse score. OBJECTIVE MEASURES WITH LEVEL OF FUNCTION: UE AROM L Shoulder Flex: 165 Degrees (No pain) L Shoulder ABduction: 165 Degrees L Shoulder External Rotation: 45 Degrees UE and Cervical Strength Strength Tested: Shoulder Dynamometer Testing Dynamometer Strength R Shoulder Standing Scaption (lbs): 24.7 ft/lbs R Shoulder Standing External Rotation (lbs): 23.6 ft/lbs R Shoulder Standing Internal Rotation (lbs): 35.3 ft/lbs L Shoulder Standing Scaption (lbs): 16.8 ft/lbs L Shoulder Standing External Rotation (lbs): 23.7 ft/lbs L Shoulder Standing Internal Rotation (lbs): 33.5 ft/lbs R IR:ER Ratio (%) : 149.58 L IR:ER Ratio (%): 141.35 TREATMENT: Therapeutic Exercise: 1: All objective measures taken this session 2: Seated DB press 5# x 10 3: Seated DB press overhead 8# x 10 reps x 2 sets 4: Seatee bicep curl 5# x 10 Skilled Intervention: Patient was educated in proper exercise technique and purpose for exercises. Correct performance of therapeutic exercises was facilitated with verbal and visual cuing. Billing Therapeutic Exercise Treatment Minutes: 41 Total Treatment Time Minutes (timed/untimed): 41 Lazaro Carlos, PT [facility] 03-28-2023 History of Present illness Narrative Episode Visit Count: 10 Therapist That Will Accept/Oversee The Plan Of Care: Lazaro Gonzalez Start of Care Date: 01/25/23 Onset Date: 04/20/22 Patient Identified by Name and Date of : Yes REHABILITATION AND SPORTS THERAPY PHYSICAL THERAPY DISCONTINUANCE OF CARE PLAN OF CARE UPDATE: Assessment: Marian Koch is discontinued from Physical Therapy services due to goal achievement.. Patient was seen for 10 visits from Start of Care Date: 01/25/23 to 03/28/2023 and treatment included: Therapeutic exercise, Manual therapy, Self-fdc management, and Patient/Family/Caregiver Education. Goals updated 03/28/2023 Goals for Episode of Care: created on 01/25/23 through 05/17/23 Pt will be able to complete work duties without pain or any functional limitations in 14 weeks or less - Met so far [place] in home exercise program. - Met so far Perform reaching overhead without pain. - Progressing, will continue Increase ROM of L shoulder to 0-160 degrees or more of elevation for return to PLOF - Met Increased strength of LUE to 5/5 via MMT for ease of lifting objects, getting dressed, and washing hair - Nearly Met SUBJECTIVE: Patient Reason for Visit: Pt feels 95% improved since surgery. Still avoiding picking up heavy objects. Pt wants to be done with therapy and take things on his own. Patient Goals: decrease pain Functional Limitations: nothing Prior Level of Function: Independent without limitations Intake Information: Prescription present Previous Treatment: Surgery Pain: Pain Pain Level: 0 Pain Location: Shoulder - Left PROMIS Scales Higher is Better 03/25/2023 01/24/2023 09/19/2022 Phys Func - Score 43 (mild dysfunction) 36 (moderate dysfunction) 35 (moderate dysfunction) Phys Func - Percentile 24 % 8 % 7 % Self-Eff Symptom - Score 48 (Average) 36 (Low) 36 (Low) Self-Eff Symptom - Percentile 42 % 8 % 8 % T-scores: mean of general population = 50. 5 points is clinically meaningfully difference Percentiles provide an indication of how the patient's score ranks in relation to the general population. Higher percentile rankings indicate better function/quality of life. 50th percentile is the average of the general population and indicates half of respondents had a worse score. OBJECTIVE MEASURES WITH LEVEL OF FUNCTION: UE AROM L Shoulder Flex: 165 Degrees (No pain) L Shoulder ABduction: 165 Degrees L Shoulder External Rotation: 45 Degrees UE and Cervical Strength Strength Tested: Shoulder Dynamometer Testing Dynamometer Strength R Shoulder Standing Scaption (lbs): 24.7 ft/lbs R Shoulder Standing External Rotation (lbs): 23.6 ft/lbs R Shoulder Standing Internal Rotation (lbs): 35.3 ft/lbs L Shoulder Standing Scaption (lbs): 16.8 ft/lbs L Shoulder Standing External Rotation (lbs): 23.7 ft/lbs L Shoulder Standing Internal Rotation (lbs): 33.5 ft/lbs R IR:ER Ratio (%) : 149.58 L IR:ER Ratio (%): 141.35 TREATMENT: Therapeutic Exercise: 1: All objective measures taken this session 2: Seated DB press 5# x 10 3: Seated DB press overhead 8# x 10 reps x 2 sets 4: Seatee bicep curl 5# x 10 Skilled Intervention: Patient was educated in proper exercise technique and purpose for exercises. Correct performance of therapeutic exercises was facilitated with verbal and visual cuing. Billing Therapeutic Exercise Treatment Minutes: 41 Total Treatment Time Minutes (timed/untimed): 41 Lazaro Gonzalez PT documented in this encounter [facility] 03-26-2023 Note HNO ID: [id number] Author: Diana Tate PA-C Service: ? Author Type: Physician Pressure Sealer And Tester Type: Progress Notes Filed: 03/27/2023 11:13 AM Note Text: 53 year old male with c/o follow up 01/03/2023 traumatic incomplete tear left rotator cuff, impingement syndrome. Doing well post shoulder surgery reattached tendons and chondroplasty. Sling x 6 weeks completed. In PT With Lazaro Gonzalez: making good progress. Minimal use oxycodone. 01/06/2023 presented to [facility] ER with complaint that he felt like he was puffing up, having difficulty making urine. Vital signs 98.0-88-17-169/77-99% RA. Exam was essentially normal except for trace to 1+ pitting edema bilaterally in the calves. Chest x-ray demonstrated chronic changes. Lab work demonstrated BUN 33/creatinine 2.3 with GFR of 32, baseline creatinine 1.5-2. Electrolytes were within normal limits except NA 135-CL 108. CBC WNL except Hgb 10.0-HCT 31.8, RDW 44.0-PLT 92. Normal Ig percentage 0.5, absolute neutrophil 6.0 Urinalysis micro demonstrated no red or white blood cells, 1+ bacteria, negative nitrite, specific gravity 1.015, protein 30. Patient was given prescription for cephalexin 500 mg 3 times a day for 7 days, which he completed. Feels no complication resulted. 12/18/[address] Ledy Ivy: IMPRESSION: 1. 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 2. Preserved LV systolic function, LVEF 55%. 3. Pericarditis - CRF, window 1991 4. PAD - Fem-fem bypass 02/2018 5. Dyslipidemia on statin 6. Hypertension blood pressure stable 7. CRF - transplant 1993 and 2009. 8. Patient scheduled for left shoulder surgery. PLAN AND RECOMMENDATIONS: 1. Continue current medical therapy. 2. Aggressive risk factors' modifications. Improve exercise tolerance. Strict Low-salt/low-cholesterol diet. 3. Echocardiogram, assess LV function, if unremarkable, clear for surgery as intermediate cardiac risk. Avoid hemodynamic instability, tachycardia, or fluid overload state. 4. 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 01/21/2023 cardiology visit to establish with Dr. Dockery, from notes: Assessment and Plan: 52 years old gentleman with extensive cardiac history and bypass surgery before Coronary artery disease Status post bypass surgery No angina On good medical therapy 2. Aortic insufficiency Moderate in severity with no symptoms Repeat echo in a year 3. Peripheral vascular disease 4. Kidney transplant follow up planning: One year Compliant with meds. No side effect issues. No chest pain, SOB, dyspnea, orthopnea, racing or irregular heartbeats, palpitations, syncopal sx, leg swelling, nausea, diaphoresis or heartburn. Does note that he feels fatigued chronically but this does not keep him from doing things. Very excited about his new granddaughter, showed pictures. 03/20/2023 [facility]x nd was put on 5 days of low-dose prednisone and doxycycline. Getting over URI sx but still stuffy, about 9 days. Negative flu and strep tests. After moving around, having a hard time with breathing. Hasn't missed work. Notes pain in both legs after standing. 03/20/2023 [facility] arterial vascular US/dopplar to follow bilateral fem-fem bypass done: normal velocities, CHEL non-compressible bilaterally. No discoloration or claudication sx. Had f/u with transplant team last week, says everything is stable. Feels depersson is well controlled. Lab review: Patient is coordinating with 3 different outside hospitals with multiple specialists, very difficult to keep track of information. Patient has had additional blood work done, trying to access on his phone through various electronic records. Component Latest Ref Rng AND Units 06/05/2021 10/19/2022 WBC 3.70 - 11.00 k/uL 6.77 4.91 RBC 4.20 - 6.00 m/uL 3.93 (L) 4.09 (L) Hemoglobin 13.0 - 17.0 g/dL 11.7 (L) 12.3 (L) Hematocrit 39.0 - 51.0 % 35.0 (L) 36.4 (L) MCV 80.0 - 100.0 fL 89.1 89.0 MCH 26.0 - 34.0 pg 29.8 30.1 MCHC 30.5 - 36.0 g/dL 33.4 33.8 RDW-CV 11.5 - 15.0 % 13.3 13.0 Platelet Count 150 - 400 k/uL 112 (L) 124 (L) MPV 9.0 - 12.7 fL 10.6 10.8 Neut% % 83.8 61.8 Abs Neut (ANC) 1.45 - 7.50 k/uL 5.65 3.03 Lymph% % 10.8 21.8 Abs Lymph 1.00 - 4.00 k/uL 0.73 (L) 1.07 [place]% % 5.0 12.8 Abs [place] <0.87 k/uL 0.34 0.63 Eosin% % 0.1 2.4 Abs Eosin <0.46 k/uL <0.03 0.12 Baso% % 0.3 0.6 Abs Baso <0.11 k/uL <0.03 0.03 Immature Gran % % 0.6 IMMATURE GRANS (ABS) <0.10 k/uL 0.03 NRBC /100 WBC 0.0 Absolute nRBC <0.01 k/uL <0.01 <0.01 DTYPE Auto Nucleated Reds 0 /100 WBC 0.0 Diff Type Auto Diff Protein, Total 6.3 - 8.0 g/dL 6.4 5.8 (L) Albumin 3.9 - 4.9 g/dL 4.5 4.5 Calcium 8.5 - 10.2 mg/dL 10.7 (H) 10.5 (H) Bilirubin, Total 0.2 - 1.3 mg/dL 0.5 0.5 Alkaline Phosphatase 38 - 113 U/ (more content not included)... [facility] 03-25-2023 Note HNO ID: [id number] Author: Lazaro Gonzalez PT Service: ? Author Type: Physical Therapist Type: Progress Notes Filed: 03/25/2023 9:14 AM Note Text: Episode Visit Count: 9 Therapist That Will Accept/Oversee The Plan Of Care: Lazaro Gonzalez Start of Care Date: 01/25/23 Onset Date: 04/20/22 Patient Identified by Name and Date of : Yes REHABILITATION AND SPORTS THERAPY PHYSICAL THERAPY TREATMENT NOTE ASSESSMENT: Marian Koch tolerated the session with expected muscle soreness. He demonstrated fatigue with shoulder taps around 90 seconds. The patient will continue to benefit from ongoing skilled physical therapy to progress toward set goals. PLAN FOR NEXT VISIT: POC update SUBJECTIVE: Patient Reason for Visit: Doing alright. Feels that his motion is getting better. Pain: Pain Pain Level: (Not rated) Pain Location: Shoulder - Left OBJECTIVE MEASURES WITH LEVEL OF FUNCTION: L shoulder functional IR with thumb at L1 TREATMENT: Therapeutic Exercise: 1: Arm bike 1.0 resistance x 3 min F (Subjective gathered and resistance increased to work on muscular strength/endurance of RTC's) 2: Shoulder IR with purple theraband 3x12 3: *Discussed modification to HEP 4: Shoulder abd BTB 3 x 12 reps (blue TB vended) 5: Wall taps with 2 lbs on wrist, #1-5 x 60 sec then 2 x 90 sec Skilled Intervention: Patient was educated in proper exercise technique and purpose for exercises. Correct performance of therapeutic exercises was facilitated with verbal and visual cuing. Billing Therapeutic Exercise Treatment Minutes: 42 Total Treatment Time Minutes (timed/untimed): 42 Lazaro Gonzalez PT [facility] 03-25-2023 History of Present illness Narrative Episode Visit Count: 9 Therapist That Will Accept/Oversee The Plan Of Care: Lazaro Gonzalez Start of Care Date: 01/25/23 Onset Date: 04/20/22 Patient Identified by Name and Date of : Yes REHABILITATION AND SPORTS THERAPY PHYSICAL THERAPY TREATMENT NOTE ASSESSMENT: Marian Koch tolerated the session with expected muscle soreness. He demonstrated fatigue with shoulder taps around 90 seconds. The patient will continue to benefit from ongoing skilled physical therapy to progress toward set goals. PLAN FOR NEXT VISIT: POC update SUBJECTIVE: Patient Reason for Visit: Doing alright. Feels that his motion is getting better. Pain: Pain Pain Level: (Not rated) Pain Location: Shoulder - Left OBJECTIVE MEASURES WITH LEVEL OF FUNCTION: L shoulder functional IR with thumb at L1 TREATMENT: Therapeutic Exercise: 1: Arm bike 1.0 resistance x 3 min F (Subjective gathered and resistance increased to work on muscular strength/endurance of RTC's) 2: Shoulder IR with purple theraband 3x12 3: *Discussed modification to HEP 4: Shoulder abd BTB 3 x 12 reps (blue TB vended) 5: Wall taps with 2 lbs on wrist, #1-5 x 60 sec then 2 x 90 sec Skilled Intervention: Patient was educated in proper exercise technique and purpose for exercises. Correct performance of therapeutic exercises was facilitated with verbal and visual cuing. Billing Therapeutic Exercise Treatment Minutes: 42 Total Treatment Time Minutes (timed/untimed): 42 Lazaro Gonzalez PT documented in this encounter [facility] 03-22-2023 Note HNO ID: [id number] Author: Lazaro Gonzalez PT Service: ? Author Type: Physical Therapist Type: Progress Notes Filed: 03/22/2023 12:52 PM Note Text: Episode Visit Count: 8 Therapist That Will Accept/Oversee The Plan Of Care: Lazaro Gonzalez Start of Care Date: 01/25/23 Onset Date: 04/20/22 Patient Identified by Name and Date of : Yes REHABILITATION AND SPORTS THERAPY PHYSICAL THERAPY TREATMENT NOTE ASSESSMENT: Marian Koch tolerated the session with fatigue and expected muscle soreness. He demonstrated improvements in L shoulder AROM flexion. The patient will continue to benefit from ongoing skilled physical therapy to progress toward set goals. PLAN FOR NEXT VISIT: Continue with RTC strengthening . SUBJECTIVE: Patient Reason for Visit: Pt reports that his shoulder was pretty sore after last session. Pain: Pain Pain Location: Shoulder - Left Description: Stiffness Post Treatment Pain Post Treatment Symptoms: pt reported fatigue at end of session OBJECTIVE MEASURES WITH LEVEL OF FUNCTION: UE AROM L Shoulder Flex: 162 Degrees TREATMENT: Therapeutic Exercise: 1: Arm bike 1.0 resistance x 3 min F (Subjective collected) 2: Shoulder IR with purple theraband 3x10 3: Shoulder ER with GTB 3x10 4: Shoulder abd GTB 3 x 12 reps 5: Bicep curl 5# 3 x 12 reps 6: Scaption 2# 3x10 7: Body madisyn ER/IR 3x30 seconds 8: AROM L shoulder flexion x 10 Skilled Intervention: Patient was educated in proper exercise technique and purpose for exercises. Skilled judgment was provided in selection of appropriate interventions. Correct performance of therapeutic exercises was facilitated with verbal and visual cuing. Billing Therapeutic Exercise Treatment Minutes: 38 Total Treatment Time Minutes (timed/untimed): 38 Nasra Mavis, INSTRUCTIONAL SUPERVISOR Lazaro Gonzalez, PT [facility] 03-22-2023 History of Present illness Narrative Episode Visit Count: 8 Therapist That Will Accept/Oversee The Plan Of Care: Lazaro Gonzalez Start of Care Date: 01/25/23 Onset Date: 04/20/22 Patient Identified by Name and Date of : Yes REHABILITATION AND SPORTS THERAPY PHYSICAL THERAPY TREATMENT NOTE ASSESSMENT: Marian Koch tolerated the session with fatigue and expected muscle soreness. He demonstrated improvements in L shoulder AROM flexion. The patient will continue to benefit from ongoing skilled physical therapy to progress toward set goals. PLAN FOR NEXT VISIT: Continue with RTC strengthening . SUBJECTIVE: Patient Reason for Visit: Pt reports that his shoulder was pretty sore after last session. Pain: Pain Pain Location: Shoulder - Left Description: Stiffness Post Treatment Pain Post Treatment Symptoms: pt reported fatigue at end of session OBJECTIVE MEASURES WITH LEVEL OF FUNCTION: UE AROM L Shoulder Flex: 162 Degrees TREATMENT: Therapeutic Exercise: 1: Arm bike 1.0 resistance x 3 min F (Subjective collected) 2: Shoulder IR with purple theraband 3x10 3: Shoulder ER with GTB 3x10 4: Shoulder abd GTB 3 x 12 reps 5: Bicep curl 5# 3 x 12 reps 6: Scaption 2# 3x10 7: Body madisyn ER/IR 3x30 seconds 8: AROM L shoulder flexion x 10 Skilled Intervention: Patient was educated in proper exercise technique and purpose for exercises. Skilled judgment was provided in selection of appropriate interventions. Correct performance of therapeutic exercises was facilitated with verbal and visual cuing. Billing Therapeutic Exercise Treatment Minutes: 38 Total Treatment Time Minutes (timed/untimed): 38 JOSE MARIA Dyer PT documented in this encounter [facility] 03-20-2023 Note HNO ID: [id number] Author: Olivia Herndon APRN.PLC ENGINEER Service: ? Author Type: Nurse Practitioner Type: Progress Notes Filed: 03/20/2023 12:01 PM Note Text: This note was created using [employer]. Subjective Marian Koch is a 53 year old male. He presents with cough, sore throat, body aches and fever and headache. He has asthma with COPD and states his cough is productive and his breathing feels tight. He has been using his inhaler and nebulizer at home. Review of Systems Constitutional: Positive for chills and fever. HENT: Positive for congestion and sore throat. Negative for ear pain. Respiratory: Positive for cough and shortness of breath. Gastrointestinal: Negative for diarrhea, nausea and vomiting. Musculoskeletal: Positive for myalgias. Objective BP 108/64 Pulse 64 Temp 37.8 ?C (100 ?F) (Tympanic) Resp 16 Wt 69.1 kg (152 lb 6.4 oz) SpO2 96% BMI 25.36 kg/m? PAST MEDICAL HISTORY Diagnosis Date CAD (coronary artery disease) 02/20/2010 Inactive since CABG. Last heart cath 2006, Dr. Demarco Summers 06/14/15 Lexiscan nuclear stress: no ischemia. Normal L and R sizes and systolic function. EF 56% 10/01/17ech. RV size NL, RVSF ocardiogram Dr. Dameon Mac: LV size NL, mild concenric LVH, EF 56%. RV size NL. RVSF NL. AI 1-2+ Claudication of both lower extremities (HCC) 08/22/2017 02/05/19 PVR Johana Vazqueznic: no stenosis left fem-pop bypass. Unable to get CHEL due to non-compressible vesels11/12/[address] Zavala [facility]: RIGHT: resting CHEL > 1.81, non-compressible arteries; TBI 0.40 = PAD; Right ankle: Moderate disease at rest. Right iliofemoral disease. Severe disease noted, post exercise, by tracings. LEFT SIDE: resting CHEL 1.81, non-compressible vessels, CHEL not accurate. COPD (chronic obstructive pulmonary disease) ([facility]) Coronary atherosclerosis of unspecified type of vessel, [place] or graft Coronary artery disease Current mild episode of major depressive disorder ([facility]) 02/05/2019 Depression 03/07/2012 DVT (deep venous thrombosis) ([facility]) End stage renal disease ([facility]) Due to blocked ureter as child GERD (gastroesophageal reflux disease) 03/05/2014 Hyperhomocysteinemia ([facility]) 12/08/2017 Hyperparathyroidism ([facility]) 12/08/2017 Secondary to renal failure. On Sensipar in remote past. Kidney dialysis 1988, and 2000 Neurogenic bladder VIC (obstructive sleep apnea) 08/04/2011 declines CPAP Pulmonary embolism ([facility]) 10-12 years ago Pulmonary nodules Foreign body reaction in pulmonary vasculature, ? cause. Extensive evaluation ruled out vasculitis, fungal inffection, pneumoconiosis. May have been from gortex graft .Resulted in multiple pulmonary nodules. Radiculopathy, lumbar region 11/28/2016 Renal failure 02/20/2010 Renal failure, chronic, stage 3 (moderate) ([facility]) folllowing renal transplant Renal stones Steroid long-term use Transplant kidney 1993 and 2009 Failed in 2000(right in , removed in ; left ') PAST SURGICAL HISTORY Procedure Laterality Date CABG (4) VEIN GRAFTS AND ARTERIAL GRAFT(S) 2004 COLONOSCOPY FLX DX W/COLLJ SPEC WHEN PFRMD 06/14/[address] Dodge PERICARDIAL WINDOW, DRAINAGE 1991 RENAL ALLOTRANSPLANTATION W/ GRAFT W/O RECIPIENT NEPHRECTOMY 1993, repeat 2019. ALLERGIES Bee Sting and Darvocet-N 100 [Propoxyphene N-Acetaminophen] MEDICATIONS oxyCODONE-acetaminophen (PERCOCET) 5-325 mg tabletTake 1 tablet by mouth every 6 hours as needed for pain.Disp: 25 tabletRfl: 0 alendronate (FOSAMAX) 70 mg tabletTake 1 tablet by mouth one time a week. Take with a full glass of water, on an empty stomach; do NOT lie down for 30minutes.Disp: 12 tabletRfl: 3 atorvastatin (LIPITOR) 80 mg tabletTake 1 tablet by mouth daily at bedtime.Disp: 90 tabletRfl: 3 albuterol HFA (PROVENTIL HFA, VENTOLIN HFA) 90 mcg/actuation inhalerINHALE 2 PUFFS BY MOUTH EVERY 6 HOURS NEEDED DIRECTEDDisp: 6.7 EachRfl: 5 CARDURA XL 8 mg 24 hr tabletTAKE 1 TABLET BY MOUTH EVERY DAY WITH BREAKFASTDisp: 90 tabletRfl: 3 predniSONE (DELTASONE) 5 mg tabletTake 1 tablet by mouth once daily.Disp: Rfl: umeclidinium-vilanterol (ANORO ELLIPTA) 62.5-25 mcg/actuation inhalerINHALE 1 INHALATION INSTRUCTED ONCE DAILY.Disp: 1 EachRfl: 11 albuterol (PROVENTIL) 2.5 mg /3 mL (0.083 %) nebulizer solutionUse 3 mL via nebulizer every 4 hours as needed for Wheezing/Shortness of Breath. Use over 5-15minutes.Disp: 1 PackageRfl: 2 ASTAGRAF XL 0.5 mg capsuleTake 2 mg by mouth once daily.Disp: Rfl: 11 amLODIPine (NORVASC) 5 mg tabletTake 5 mg by mouth once daily.Disp: Rfl: carvedilol (COREG) 25 mg tabletTake 1 tablet by mouth twice daily with meals.Disp: Rfl: 3 omeprazole (PRILOSEC) 20 mg capsuleTake 20 mg by mouth once daily.Disp: Rfl: acetaminophen (TYLENOL) 500 mg tabletTake 500 mg by mouth every 8 hours as needed.Disp: Rfl: mycophenolate mofetil (CELLCEPT) 250 mg capsuleTake 500 mg by mouth twice daily. Disp: Rfl: 0 magnesium oxide 40 (more content not included)... [facility] 03-20-2023 Instructions Olivia Herndon APRN.CNP - 03/20/2023 11:09 AM EDT ASSESSMENT/PLAN: 1. Sore throat - ICD9: 462, ICD10: J02.9 (primary diagnosis) - suspect viral - Alere Strep Test negative, no culture pending - Discussed supportive care treatment with fluids, rest and analgesia. - STREP A MOLECULAR (POC) 2. COPD with exacerbation (HCC) - ICD9: 491.21, ICD10: J44.1 - PREDNISONE 20 MG TABLET - DOXYCYCLINE HYCLATE 100 MG CAPSULE - Follow-up with your PCP in 3-5 days if symptoms have not improved or sooner if symptoms worsen - Discussed red flags and need for immediate medical evaluation if any occur. - Discussed supportive care treatment with fluids, rest and analgesia. - Discussed expected course of illness Olivia Herndon APRN.CNP Treatment for Viral Upper Respiratory Tract Infections Your body will kill off the virus by itself. Additionally, you can prime your body's immune system. This may help you get better more quickly. Drink lots of fluids Make sure you are eating well Get plenty of rest We do not have any medications that kill off these viruses. Antibiotics are used to treat bacterial infections; however, they are not active against viral infections. There are some things that might help you feel better, though. Vaporizers, humidifiers, hot showers, and hot fluids help open respiratory and sinus passages [place] Nasal [place] may offer relief of nasal and head congestion Son's Vapor Rub may relieve congestion Tylenol and Advil help control fevers and headaches Salt water gargles help relieve sore throats Chloraceptic spray or throat lozenges may also help relieve sore throat symptoms Occasionally, viral infections turn into something more serious. You should see your doctor or return to the Urgent Care if: You have fevers for longer than five days You have fevers above 102 degrees You are still sick after 10 days You have shortness of breath or wheezing After several days you are getting worse rather than better documented in this encounter [facility] 03-20-2023 History of Present illness Narrative This note was created using [employer]. Subjective Marian Koch is a 53 year old male. He presents with cough, sore throat, body aches and fever and headache. He has asthma with COPD and states his cough is productive and his breathing feels tight. He has been using his inhaler and nebulizer at home. Review of Systems Constitutional: Positive for chills and fever. HENT: Positive for congestion and sore throat. Negative for ear pain. Respiratory: Positive for cough and shortness of breath. Gastrointestinal: Negative for diarrhea, nausea and vomiting. Musculoskeletal: Positive for myalgias. Objective BP 108/64 Pulse 64 Temp 37.8 C (100 F) (Tympanic) Resp 16 Wt 69.1 kg (152 lb 6.4 oz) SpO2 96% BMI 25.36 kg/m PAST MEDICAL HISTORY Diagnosis Date CAD (coronary artery disease) 02/20/2010 Inactive since CABG. Last heart cath 2006, Dr. Demarco Summers 06/14/15 Lexiscan nuclear stress: no ischemia. Normal L and R sizes and systolic function. EF 56% 10/01/17ech. RV size NL, RVSF ocardiogram Dr. Dameon Mac: LV size NL, mild concenric LVH, EF 56%. RV size NL. RVSF NL. AI 1-2+ Claudication of both lower extremities ([facility]) 08/22/2017 02/05/19 PVR Johana Vazqueznic: no stenosis left fem-pop bypass. Unable to get CHEL due to non-compressible vesels11/12/[address] Zavala [facility]: RIGHT: resting CHEL > 1.81, non-compressible arteries; TBI 0.40 = PAD; Right ankle: Moderate disease at rest. Right iliofemoral disease. Severe disease noted, post exercise, by tracings. LEFT SIDE: resting CHEL 1.81, non-compressible vessels, CHEL not accurate. COPD (chronic obstructive pulmonary disease) ([facility]) Coronary atherosclerosis of unspecified type of vessel, [place] or graft Coronary artery disease Current mild episode of major depressive disorder ([facility]) 02/05/2019 Depression 03/07/2012 DVT (deep venous thrombosis) ([facility]) End stage renal disease ([facility]) Due to blocked ureter as child GERD (gastroesophageal reflux disease) 03/05/2014 Hyperhomocysteinemia (HCC) 12/08/2017 Hyperparathyroidism (HCC) 12/08/2017 Secondary to renal failure. On Sensipar in remote past. Kidney dialysis 1988, and 2000 Neurogenic bladder VIC (obstructive sleep apnea) 08/04/2011 declines CPAP Pulmonary embolism (HCC) 10-12 years ago Pulmonary nodules Foreign body reaction in pulmonary vasculature, ? cause. Extensive evaluation ruled out vasculitis, fungal inffection, pneumoconiosis. May have been from gortex graft .Resulted in multiple pulmonary nodules. Radiculopathy, lumbar region 11/28/2016 Renal failure 02/20/2010 Renal failure, chronic, stage 3 (moderate) (HCC) folllowing renal transplant Renal stones Steroid long-term use Transplant kidney 1993 and 2009 Failed in 2000(right in , removed in ; left ') PAST SURGICAL HISTORY Procedure Laterality Date CABG (4) VEIN GRAFTS & ARTERIAL GRAFT(S) 2004 COLONOSCOPY FLX DX W/COLLJ SPEC WHEN PFRMD 06/14/[address] Dodge PERICARDIAL WINDOW, DRAINAGE 1991 RENAL ALLOTRANSPLANTATION W/ GRAFT W/O RECIPIENT NEPHRECTOMY 1993, repeat 2019. ALLERGIES Bee Sting and Darvocet-N 100 [Propoxyphene N-Acetaminophen] MEDICATIONS oxyCODONE-acetaminophen (PERCOCET) 5-325 mg tablet^Take 1 tablet by mouth every 6 hours as needed for pain.^Disp: 25 tablet^Rfl: 0 alendronate (FOSAMAX) 70 mg tablet^Take 1 tablet by mouth one time a week. Take with a full glass of water, on an empty stomach; do NOT lie down for 30minutes.^Disp: 12 tablet^Rfl: 3 atorvastatin (LIPITOR) 80 mg tablet^Take 1 tablet by mouth daily at bedtime.^Disp: 90 tablet^Rfl: 3 albuterol HFA (PROVENTIL HFA, VENTOLIN HFA) 90 mcg/actuation inhaler^INHALE 2 PUFFS BY MOUTH EVERY 6 HOURS NEEDED DIRECTED^Disp: 6.7 Each^Rfl: 5 CARDURA XL 8 mg 24 hr tablet^TAKE 1 TABLET BY MOUTH EVERY DAY WITH BREAKFAST^Disp: 90 tablet^Rfl: 3 predniSONE (DELTASONE) 5 mg tablet^Take 1 tablet by mouth once daily.^Disp: ^Rfl: umeclidinium-vilanterol (ANORO ELLIPTA) 62.5-25 mcg/actuation inhaler^INHALE 1 INHALATION INSTRUCTED ONCE DAILY.^Disp: 1 Each^Rfl: 11 albuterol (PROVENTIL) 2.5 mg /3 mL (0.083 %) nebulizer solution^Use 3 mL via nebulizer every 4 hours as needed for Wheezing/Shortness of Breath. Use over 5-15minutes.^Disp: 1 Package^Rfl: 2 ASTAGRAF XL 0.5 mg capsule^Take 2 mg by mouth once daily.^Disp: ^Rfl: 11 amLODIPine (NORVASC) 5 mg tablet^Take 5 mg by mouth once daily.^Disp: ^Rfl: carvedilol (COREG) 25 mg tablet^Take 1 tablet by mouth twice daily with meals.^Disp: ^Rfl: 3 omeprazole (PRILOSEC) 20 mg capsule^Take 20 mg by mouth once daily.^Disp: ^Rfl: acetaminophen (TYLENOL) 500 mg tablet^Take 500 mg by mouth every 8 hours as needed.^Disp: ^Rfl: mycophenolate mofetil (CELLCEPT) 250 mg capsule^Take 500 mg by mouth twice daily. ^Disp: ^Rfl: 0 magnesium oxide 400 mg cap^Take 1 capsule by mouth twice daily.^Disp: ^Rfl: 0 ASPIRIN 81 MG TAB^Take one(1) tablet daily.^Disp: 0^Rfl: 0 cyclobenzaprine (FLEXERIL) 10 mg tablet^Take 1 tablet by mouth three times daily as needed for muscle spasm.^Disp: 21 tablet^Rfl: 0 (Patient not taking: Reported on 03/20/2023) DULoxetine (CYMBALTA) 30 mg capsule^Take 1 capsule by mouth once daily.^Disp: 90 capsule^Rfl: 1 (Patient not taking: Reported on 03/20/2023) FAMILY HISTORY Problem Relation Age of Onset Arthritis Father Cancer Father Lung, 1990. Heart Father Heart Mother 2012. Social History Tobacco Use Smoking status: Former Packs/day: 1.25 Years: 15.00 Pack years: 18.75 Types: Cigarettes Quit date: 09/06/2011 Years since quittin.5 Smokeless tobacco: Current Types: Chew Vaping Use Vaping Use: Never used Substance Use Topics Alcohol use: No Drug use: No Physical Exam Vitals and nursing note reviewed. Constitutional: General: He is not in acute distress. Appearance: Normal appearance. HENT: Nose: Congestion present. Mouth/Throat: Mouth: Mucous membranes are moist. Pharynx: Posterior oropharyngeal erythema present. Cardiovascular: Rate and Rhythm: Normal rate and regular rhythm. Heart sounds: Murmur heard. Pulmonary: Effort: Pulmonary effort is normal. Breath sounds: Wheezing (few, scattered) present. Neurological: Mental Status: He is alert. Assessment and Plan ASSESSMENT/PLAN: 1. Sore throat - ICD9: 462, ICD10: J02.9 (primary diagnosis) - suspect viral - Alere Strep Test negative, no culture pending - Discussed supportive care treatment with fluids, rest and analgesia. - STREP A MOLECULAR (POC) 2. COPD with exacerbation (HCC) - ICD9: 491.21, ICD10: J44.1 - PREDNISONE 20 MG TABLET - DOXYCYCLINE HYCLATE 100 MG CAPSULE - Follow-up with your PCP in 3-5 days if symptoms have not improved or sooner if symptoms worsen - Discussed red flags and need for immediate medical evaluation if any occur. - Discussed supportive care treatment with fluids, rest and analgesia. - Discussed expected course of illness Olivia Herndon APRN.[employer] ENGINEER documented in this encounter [facility] 03-19-2023 Note HNO ID: [id number] Author: Lazaro Gonzalez PT Service: ? Author Type: Physical Therapist Type: Progress Notes Filed: 03/19/2023 8:26 AM Note Text: Episode Visit Count: 7 Therapist That Will Accept/Oversee The Plan Of Care: Lazaro Gonzalez Start of Care Date: 01/25/23 Onset Date: 04/20/22 Patient Identified by Name and Date of : Yes REHABILITATION AND SPORTS THERAPY PHYSICAL THERAPY TREATMENT NOTE ASSESSMENT: Marian Koch tolerated the session with no issues. He demonstrated fatigue with shoulder abd exercise, but no pain. The patient will continue to benefit from ongoing skilled physical therapy to progress toward set goals. PLAN FOR NEXT VISIT: RTC strengthening as tolerated SUBJECTIVE: Patient Reason for Visit: The shoulder is stinging some today. Feels like he slept on it wrong. Sees the surgeon next week. Pain: Pain Pain Level: (Not rated) Pain Location: Shoulder - Left OBJECTIVE MEASURES WITH LEVEL OF FUNCTION: Purple band vended for home use TREATMENT: Therapeutic Exercise: 1: Arm bike 1.0 resistance x 3 min F (Discussed HEP and working on shoulder strength) 2: Shoulder IR GTB x 10 3: Shoulder IR BTB x 12 4: Standing shoulder IR purple TB 2 x 12 reps 5: Bicep curl 3# x 15 6: Bicep curl 5# 2 x 12 reps 7: Shoulder abd GTB 3 x 12 reps 8: Supine wand flexion 2# to stretch into end range 2 x 10 Skilled Intervention: Patient was educated in proper exercise technique and purpose for exercises. Correct performance of therapeutic exercises was facilitated with verbal and visual cuing. Billing Therapeutic Exercise Treatment Minutes: 39 Total Treatment Time Minutes (timed/untimed): 39 Lazaro Gonzalez PT [facility] 03-08-2023 Note HNO ID: [id number] Author: Lazaro Gonzalez PT Service: ? Author Type: Physical Therapist Type: Progress Notes Filed: 03/08/2023 4:21 PM Note Text: Episode Visit Count: 6 Therapist That Will Accept/Oversee The Plan Of Care: Lazaro Gonzalez Start of Care Date: 01/25/23 Onset Date: 04/20/22 Patient Identified by Name and Date of : Yes REHABILITATION AND SPORTS THERAPY PHYSICAL THERAPY TREATMENT NOTE ASSESSMENT: Marian Koch tolerated the session with no issues. He demonstrated difficulty with fatigue after arm bike. The patient will continue to benefit from ongoing skilled physical therapy to progress toward set goals. PLAN FOR NEXT VISIT: Strengthening RTC SUBJECTIVE: Patient Reason for Visit: Doing fine. tired from work. Pain: Pain Pain Location: Shoulder - Left OBJECTIVE MEASURES WITH LEVEL OF FUNCTION: Shoulder flexion 157 (L) TREATMENT: Therapeutic Exercise: 1: Arm bike 1.3 resistance 2 min F and B 2: Shoulder pulleys x 20 3: Scaption 2# 2 x 10 4: IR GTB 3 x 12 5: Bicep curl 3# 3 x 10 Skilled Intervention: Patient was educated in proper exercise technique and purpose for exercises. Billing Therapeutic Exercise Treatment Minutes: 30 Total Treatment Time Minutes (timed/untimed): 30 Lazaro Gonzalez PT [facility] 03-08-2023 History of Present illness Narrative Episode Visit Count: 6 Therapist That Will Accept/Oversee The Plan Of Care: Lazaro Gonzalez Start of Care Date: 01/25/23 Onset Date: 04/20/22 Patient Identified by Name and Date of : Yes REHABILITATION AND SPORTS THERAPY PHYSICAL THERAPY TREATMENT NOTE ASSESSMENT: Marian Koch tolerated the session with no issues. He demonstrated difficulty with fatigue after arm bike. The patient will continue to benefit from ongoing skilled physical therapy to progress toward set goals. PLAN FOR NEXT VISIT: Strengthening RTC SUBJECTIVE: Patient Reason for Visit: Doing fine. tired from work. Pain: Pain Pain Location: Shoulder - Left OBJECTIVE MEASURES WITH LEVEL OF FUNCTION: Shoulder flexion 157 (L) TREATMENT: Therapeutic Exercise: 1: Arm bike 1.3 resistance 2 min F and B 2: Shoulder pulleys x 20 3: Scaption 2# 2 x 10 4: IR GTB 3 x 12 5: Bicep curl 3# 3 x 10 Skilled Intervention: Patient was educated in proper exercise technique and purpose for exercises. Billing Therapeutic Exercise Treatment Minutes: 30 Total Treatment Time Minutes (timed/untimed): 30 Lazaro Gonzalez PT documented in this encounter [facility] 02-27-2023 Note HNO ID: [id number] Author: Lazaro Gonzalez PT Service: ? Author Type: Physical Therapist Type: Progress Notes Filed: 02/27/2023 11:29 AM Note Text: Episode Visit Count: 5 Therapist That Will Accept/Oversee The Plan Of Care: Lazaro Gonzalez Start of Care Date: 01/25/23 Onset Date: 04/20/22 Patient Identified by Name and Date of : Yes REHABILITATION AND SPORTS THERAPY PHYSICAL THERAPY PROGRESS REPORT PLAN OF CARE UPDATE: Assessment: Marian Koch demonstrates difficulty with lifting, reaching behind back, reaching overhead, and use hand with arm at shoulder level and improvements in overall shoulder ROM, strength, and independence level with the HEP. He has progressed toward goals. Patient continues to present with impairments in independence in exercise, overall function, range of motion, and strength that interfere with sleeping, reaching behind back, reaching overhead, lifting . Current prognosis is Good due to: current objective clinical presentation, good overall health status . He will benefit from continued skilled therapy services to meet the updated goals for this plan of care as noted below. Goals updated 02/27/2023 Goals for Episode of Care: created on 01/25/23 through 05/17/23 Pt will be able to complete work duties without pain or any functional limitations in 14 weeks or less - Progressing, will continue [place] in home exercise program. - Met so far Perform reaching overhead without pain. - Progressing, will continue Increase ROM of L shoulder to 0-160 degrees or more of elevation for return to PLOF - Progressing will continue Increased strength of LUE to 5/5 via MMT for ease of lifting objects, getting dressed, and washing hair - Progressing, will continue Patient Goals: decrease pain Planned Interventions, Frequency, and Duration: 2x/week, 4 weeks Total Number of Visits Planned: 8 Patient to be seen for Therapeutic exercise (39056), Neuromuscular re-education (53513), Manual therapy (07948), Self-fdc management (61299), Patient/Family/Caregiver Education PLAN FOR NEXT VISIT: Progress strengthening per protocol and as tolerated. End range elevation exercises. SUBJECTIVE: Patient Reason for Visit: Feeling sore after the addition of the last exercises. Overall doing ok. Patient Goals: decrease pain Functional Limitations: sleeping, reaching behind back, reaching overhead, lifting Prior Level of Function: Independent without limitations Intake Information: Prescription present Previous Treatment: Surgery Pain: Pain Pain Level: 3 Pain Location: Shoulder - Left PROMIS Scales Higher is Better 01/24/2023 09/19/2022 Phys Func - Score 36 (moderate dysfunction) 35 (moderate dysfunction) Phys Func - Percentile 8 % 7 % Self-Eff Symptom - Score 36 (Low) 36 (Low) Self-Eff Symptom - Percentile 8 % 8 % T-scores: mean of general population = 50. 5 points is clinically meaningfully difference Percentiles provide an indication of how the patient's score ranks in relation to the general population. Higher percentile rankings indicate better function/quality of life. 50th percentile is the average of the general population and indicates half of respondents had a worse score. OBJECTIVE MEASURES WITH LEVEL OF FUNCTION: UE PROM R Shoulder Flex: 162 Degrees L Shoulder Flex: 155 Degrees (using pulleys and 118 without help) L Shoulder External Rotation: 50 Degrees (arm at side) UE and Cervical Strength Strength Tested: Shoulder All L Shoulder Flexion: 3-/5 L Shoulder Internal Rotation: 4-/5 L Shoulder External Rotation: 4/5 L Elbow Flexion (C6): 4/ TREATMENT: Therapeutic Exercise: 1: All objective measures taken this session 2: Shoulder pulleys x 20 3: Standing bicep curl 2# 2 x 10 reps (VC's for decreased speed with contraction as this can increase pain) 4: Side-lying ER 2# 2 x 7-10 reps 5: standing wand flexion AAROM 2 x 10 reps (this exercise will replace the wall slides as the wall slides caused excessive discomfort) Skilled Intervention: Patient was educated in proper exercise technique and purpose for exercises. Correct performance of therapeutic exercises was facilitated with verbal and visual cuing. Billing Therapeutic Exercise Treatment Minutes: 45 Total Treatment Time Minutes (timed/untimed): 45 Lazaro Gonzalez PT [facility] 02-21-2023 Note HNO ID: [id number] Author: Prachi Doss, DO Service: ? Author Type: Physician Type: Progress Notes Filed: 02/21/2023 4:11 PM Note Text: Follow Up Visit Chief Complaint Marian Koch is a 53 year old male who presents today for follow up office visit. Patient presents with: Left Shoulder - Post Op, Pain History of Present Illness PAIN EVALUATION 02/14/2023 2233 Pain Level: 6 Pain Location: Shoulder-Left Description: Aching;Stiffness;Tightness Duration Amount of Time: 2 Duration Units: Hours Frequency: Intermittent Intervention/Comfort measure: Medication HPI: Marian Koch is a 53 year old male for a follow up visit for left shoulder 6 wk postop. Complains of aching pain worse with rom, doing PT, progressing per protocol. Pain history is noted as above. Denies new pain, numbness, tingling, fever, chills or other constitutional symptoms. Is there any overall improvement in your condition? yes Any new injury, since being seen last: No REVIEW OF SYMPTOMS: Patient did not have, and does not currently have, any weight loss, malaise, fever, chills, headache, chest pain, chest pressure, palpitations, cough, shortness of breath, orthopnea, paroxsymal nocturnal dyspnea, nausea, vomiting, diarrhea, constipation, melena, hematochezia, urinary difficulties, prolonged bleeding, easily bruising, heat or cold intolerance, new onset joint pain or swelling, new onset extremity weakness or numbness, new onset auditory or visual disturbances, lightheadedness, dizziness, partial loss of consciousness or full loss of consciousness. Current Outpatient Medications Medication Sig oxyCODONE-acetaminophen (PERCOCET) 5-325 mg tablet Take 1 tablet by mouth every 6 hours as needed for pain. alendronate (FOSAMAX) 70 mg tablet Take 1 tablet by mouth one time a week. Take with a full glass of water, on an empty stomach; do NOT lie down for 30minutes. atorvastatin (LIPITOR) 80 mg tablet Take 1 tablet by mouth daily at bedtime. albuterol HFA (PROVENTIL HFA, VENTOLIN HFA) 90 mcg/actuation inhaler INHALE 2 PUFFS BY MOUTH EVERY 6 HOURS NEEDED DIRECTED cyclobenzaprine (FLEXERIL) 10 mg tablet Take 1 tablet by mouth three times daily as needed for muscle spasm. (Patient not taking: Reported on 01/21/2023) CARDURA XL 8 mg 24 hr tablet TAKE 1 TABLET BY MOUTH EVERY DAY WITH BREAKFAST predniSONE (DELTASONE) 5 mg tablet Take 1 tablet by mouth once daily. umeclidinium-vilanterol (ANORO ELLIPTA) 62.5-25 mcg/actuation inhaler INHALE 1 INHALATION INSTRUCTED ONCE DAILY. albuterol (PROVENTIL) 2.5 mg /3 mL (0.083 %) nebulizer solution Use 3 mL via nebulizer every 4 hours as needed for Wheezing/Shortness of Breath. Use over 5-15minutes. ASTAGRAF XL 0.5 mg capsule Take 2 mg by mouth once daily. DULoxetine (CYMBALTA) 30 mg capsule Take 1 capsule by mouth once daily. (Patient not taking: Reported on 01/21/2023) amLODIPine (NORVASC) 5 mg tablet Take 5 mg by mouth once daily. carvedilol (COREG) 25 mg tablet Take 1 tablet by mouth twice daily with meals. omeprazole (PRILOSEC) 20 mg capsule Take 20 mg by mouth once daily. acetaminophen (TYLENOL) 500 mg tablet Take 500 mg by mouth every 8 hours as needed. mycophenolate mofetil (CELLCEPT) 250 mg capsule Take 500 mg by mouth twice daily. magnesium oxide 400 mg cap Take 1 capsule by mouth twice daily. ASPIRIN 81 MG TAB Take one(1) tablet daily. Current Facility-Administered Medications Medication Dose Route Frequency perflutren lipid microspheres 1.3 mL in NaCl (PF) 0.9% 10 mL injection (DEFINITY) INTRAVENOUS DIRECTED PRN sodium chloride 0.9 % (flush) 10 mL (BD POSIFLUSH) 10 mL INTRAVENOUS DIRECTED PRN Physical Exam Vitals: There were no vitals taken for this visit. Psych: Pleasant, good affect and mood General Appearance: Well appearing, alert, in no acute distress, well-hydrated, well nourished.. Skin: Skin color, texture, turgor normal, no suspicious rashes or lesions. Peripheral Pulses: Normal. Neurologic: Gait normal. Reflexes normal and symmetric. Sensation grossly intact.. Lymph Nodes: No cervical lymphadenopathy, No supraclavicular lymphadenopathy, No axillary lymphadenopathy., and No inguinal lymphadenopathy.. Respiratory: No recent pulmonary infection, hemoptysis, chronic cough, or shortness of breath at rest Rheumatologic: Joint deformities: left shoulder follow up/pain Right Hand Exam Right hand exam is normal. Tenderness The patient is experiencing no tenderness. Range of Motion The patient has normal right wrist ROM. Wrist Extension: normal Flexion: normal Pronation: normal Supination: normal Muscle Strength The patient has normal right wrist strength. Tests Phalen?s Sign: negative Tinel's sign (median nerve): negative Kaylynn's test: negative Other Erythema: absent Sensation: normal Pulse: present Comments: B/l med/uln/rad/ax nerves intact Left (more content not included)... [facility] 02-20-2023 Note HNO ID: [id number] Author: Lazaro Gonzalez PT Service: ? Author Type: Physical Therapist Type: Progress Notes Filed: 02/20/2023 10:42 AM Note Text: Episode Visit Count: 4 Therapist That Will Accept/Oversee The Plan Of Care: Lazaro Gonzalez Start of Care Date: 01/25/23 Onset Date: 04/20/22 Patient Identified by Name and Date of : Yes REHABILITATION AND SPORTS THERAPY PHYSICAL THERAPY TREATMENT NOTE ASSESSMENT: Marian Koch tolerated the session with no issues. He demonstrated good tolerance to newly added strengthening exercises. The patient will continue to benefit from ongoing skilled physical therapy to progress toward set goals. PLAN FOR NEXT VISIT: POC update SUBJECTIVE: Patient Reason for Visit: Was sore for a week after the stretching last session but feeling better now. Feels like things are coming along. Pt has been doing some stretching on his own as well. Pain: Pain Pain Location: Shoulder - Left OBJECTIVE MEASURES WITH LEVEL OF FUNCTION: UE PROM L Shoulder Flex: 155 Degrees (using pulleys) TREATMENT: Therapeutic Exercise: 1: Wall slides holding towel x 10 reps (given for HEP) 2: Shoulder pulleys x 20 3: R sidelying position, L shoulder ER against gravity with no weight 3 x 10 reps 4: Standing bicep curl 1# x 10 5: Standing bicep curl 2# 2 x 10 reps 6: Seated scapular retractions x 20 Skilled Intervention: Patient was educated in proper exercise technique and purpose for exercises. Correct performance of therapeutic exercises was facilitated with verbal cuing. Billing Therapeutic Exercise Treatment Minutes: 41 Total Treatment Time Minutes (timed/untimed): 41 Lazaro Gonzalez PT [facility] 02-12-2023 Note HNO ID: [id number] Author: Lazaro Gonzalez PT Service: ? Author Type: Physical Therapist Type: Progress Notes Filed: 02/12/2023 9:48 AM Note Text: Episode Visit Count: 3 Therapist That Will Accept/Oversee The Plan Of Care: Lazaro Gonzalez Start of Care Date: 01/25/23 Onset Date: 04/20/22 Patient Identified by Name and Date of : Yes REHABILITATION AND SPORTS THERAPY PHYSICAL THERAPY TREATMENT NOTE ASSESSMENT: Marian Dsouza Zee tolerated the session with fatigue and expected muscle soreness. He demonstrated improvements in L shoulder flexion ROM. The patient will continue to benefit from ongoing skilled physical therapy to progress toward set goals. PLAN FOR NEXT VISIT: Continue with advancing L shoulder ROM per protocol. SUBJECTIVE: Patient Reason for Visit: Pt reports that his shoulder is feeling stiff. Pain: Pain Pain Level: 3 Pain Location: Shoulder - Left Post Treatment Pain Post Treatment Pain Location: Shoulder - Left Post Treatment Symptoms: Pt stated that his shoulder was a little more sore at the end of the session. OBJECTIVE MEASURES WITH LEVEL OF FUNCTION: UE PROM L Shoulder Flex: 128 Degrees (with pulleys) TREATMENT: Therapeutic Exercise: 1: Seated shoulder pulleys 3x10 2: Seated scapular retractions 3 x 10 reps 3: Discussed rehab protocol and expectations of progression. Skilled Intervention: Patient was educated in proper exercise technique and purpose for exercises. Skilled judgment was provided in selection of appropriate interventions. Correct performance of therapeutic exercises was facilitated with verbal and visual cuing. Manual Therapy: 1: PROM ER 2x10 2: PROM shoulder flexion 3x10 (started approx 90 and increased to approx 120 degrees with continued reps, not formally measured) Skilled Intervention: Manual skills to improve joint mobility, ROM, and decrease pain. Utilized anatomy knowledge of the therapist, and assessment of patient's response to intervention. Billing Therapeutic Exercise Treatment Minutes: 25 Manual TherapyTreatment Minutes: 15 Total Treatment Time Minutes (timed/untimed): 40 Nasra Gamble, JOSE MARIA Gonzalez, PT [facility] 02-12-2023 History of Present illness Narrative Episode Visit Count: 3 Therapist That Will Accept/Oversee The Plan Of Care: Lazaro Gonzalez Start of Care Date: 01/25/23 Onset Date: 04/20/22 Patient Identified by Name and Date of : Yes REHABILITATION AND SPORTS THERAPY PHYSICAL THERAPY TREATMENT NOTE ASSESSMENT: Marian Koch tolerated the session with fatigue and expected muscle soreness. He demonstrated improvements in L shoulder flexion ROM. The patient will continue to benefit from ongoing skilled physical therapy to progress toward set goals. PLAN FOR NEXT VISIT: Continue with advancing L shoulder ROM per protocol. SUBJECTIVE: Patient Reason for Visit: Pt reports that his shoulder is feeling stiff. Pain: Pain Pain Level: 3 Pain Location: Shoulder - Left Post Treatment Pain Post Treatment Pain Location: Shoulder - Left Post Treatment Symptoms: Pt stated that his shoulder was a little more sore at the end of the session. OBJECTIVE MEASURES WITH LEVEL OF FUNCTION: UE PROM L Shoulder Flex: 128 Degrees (with pulleys) TREATMENT: Therapeutic Exercise: 1: Seated shoulder pulleys 3x10 2: Seated scapular retractions 3 x 10 reps 3: Discussed rehab protocol and expectations of progression. Skilled Intervention: Patient was educated in proper exercise technique and purpose for exercises. Skilled judgment was provided in selection of appropriate interventions. Correct performance of therapeutic exercises was facilitated with verbal and visual cuing. Manual Therapy: 1: PROM ER 2x10 2: PROM shoulder flexion 3x10 (started approx 90 and increased to approx 120 degrees with continued reps, not formally measured) Skilled Intervention: Manual skills to improve joint mobility, ROM, and decrease pain. Utilized anatomy knowledge of the therapist, and assessment of patient's response to intervention. Billing Therapeutic Exercise Treatment Minutes: 25 Manual TherapyTreatment Minutes: 15 Total Treatment Time Minutes (timed/untimed): 40 Nasra Gamble, INSTRUCTIONAL SUPERVISOR Lazaro Gonzalez PT documented in this encounter [facility] 01-29-2023 Note HNO ID: [id number] Author: Lazaro Gonzalez PT Service: ? Author Type: Physical Therapist Type: Progress Notes Filed: 01/29/2023 1:29 PM Note Text: Episode Visit Count: 2 Therapist That Will Accept/Oversee The Plan Of Care: Lazaro Gonzalez Start of Care Date: 01/25/23 Onset Date: 04/20/22 Patient Identified by Name and Date of : Yes REHABILITATION AND SPORTS THERAPY PHYSICAL THERAPY TREATMENT NOTE ASSESSMENT: Marian Koch tolerated the session with no issues. He demonstrated good tolerance to all therapeutic exercises. The patient will continue to benefit from ongoing skilled physical therapy to progress toward set goals. PLAN FOR NEXT VISIT: Continue with rehab protocol. PROM/AAROM SUBJECTIVE: Patient Reason for Visit: The shoulder is still tight but some improvement in ROM. Picked up parts for work yesterday. Pain: Pain Pain Level: 3 Pain Location: Shoulder - Left OBJECTIVE MEASURES WITH LEVEL OF FUNCTION: TREATMENT: Therapeutic Exercise: 1: Seated shoulder pulleys x 20 2: Shoulder rollouts on blue PB 3 x 10 3: Hand squeezes x 20 reps 4: Shoulder ER/IR wand PROM 3 x 10 5: Elbow flexion PROM assisted with wand 3 x 10 6: Seated scapular retractions 3 x 10 reps Skilled Intervention: Patient was educated in proper exercise technique and purpose for exercises. Correct performance of therapeutic exercises was facilitated with verbal and visual cuing. Billing Therapeutic Exercise Treatment Minutes: 38 Total Treatment Time Minutes (timed/untimed): 38 Lazaro Gonzalez PT [facility] 01-29-2023 History of Present illness Narrative Episode Visit Count: 2 Therapist That Will Accept/Oversee The Plan Of Care: Lazaro Gonzalez Start of Care Date: 01/25/23 Onset Date: 04/20/22 Patient Identified by Name and Date of : Yes REHABILITATION AND SPORTS THERAPY PHYSICAL THERAPY TREATMENT NOTE ASSESSMENT: Marian Koch tolerated the session with no issues. He demonstrated good tolerance to all therapeutic exercises. The patient will continue to benefit from ongoing skilled physical therapy to progress toward set goals. PLAN FOR NEXT VISIT: Continue with rehab protocol. PROM/AAROM SUBJECTIVE: Patient Reason for Visit: The shoulder is still tight but some improvement in ROM. Picked up parts for work yesterday. Pain: Pain Pain Level: 3 Pain Location: Shoulder - Left OBJECTIVE MEASURES WITH LEVEL OF FUNCTION: TREATMENT: Therapeutic Exercise: 1: Seated shoulder pulleys x 20 2: Shoulder rollouts on blue PB 3 x 10 3: Hand squeezes x 20 reps 4: Shoulder ER/IR wand PROM 3 x 10 5: Elbow flexion PROM assisted with wand 3 x 10 6: Seated scapular retractions 3 x 10 reps Skilled Intervention: Patient was educated in proper exercise technique and purpose for exercises. Correct performance of therapeutic exercises was facilitated with verbal and visual cuing. Billing Therapeutic Exercise Treatment Minutes: 38 Total Treatment Time Minutes (timed/untimed): 38 Lazaro Gonzalez PT documented in this encounter [facility] 01-25-2023 Note HNO ID: [id number] Author: Lazaro Gonzalez PT Service: ? Author Type: Physical Therapist Type: Progress Notes Filed: 01/29/2023 9:43 AM Note Text: Episode Visit Count: 1 Therapist That Will Accept/Oversee The Plan Of Care: Lazaro Gonzalez Start of Care Date: 01/25/23 Onset Date: 04/20/22 Patient Identified by Name and Date of : Yes REHABILITATION AND SPORTS THERAPY PHYSICAL THERAPY EVALUATION PLAN OF CARE: Assessment: Marian Koch presents with diagnosis of L shoulder RTC repair, SAD, and biceps tenodesis that interferes with sleeping, reaching behind back, reaching overhead, lifting . He presents with impairments in ADL's, independence in exercise, overall function, range of motion, and strength. PROMIS? (Patient-Reported Outcomes Measurement Information System) scores were reviewed and all domains identified as a rehabilitation concern. Prognosis for therapy is Good due to: current objective clinical presentation, good overall health status . He will benefit from skilled therapy services to meet the goals established for this plan of care as noted below. Goals for Episode of Care: created on 01/25/23 through 05/17/23 Pt will be able to complete work duties without pain or any functional limitations in 14 weeks or less [place] in home exercise program. Perform reaching overhead without pain. Increase ROM of L shoulder to 0-160 degrees or more of elevation for return to PLOF Increased strength of LUE to 5/5 via MMT for ease of lifting objects, getting dressed, and washing hair Planned Interventions, Frequency, and Duration: Current Frequency: 1x/week Duration: 4 weeks Total Number of Visits Planned: 4 Planned Treatment Interventions: Therapeutic exercise (25908), Neuromuscular re-education (74045), Manual therapy (02461), Self-fdc management (03598), Patient/Family/Caregiver Education PLAN FOR NEXT VISIT: Follow rehab protocol Patient demonstrates good understanding of plan of care and treatment. The above goals and plan of care were discussed and agreed upon by patient/family. SUBJECTIVE: Marian Koch is a 52 year old male seen today for L shoulder RCR repair. Avoid AROM of the elbow due to biceps tenodesis. Failed PT before so had surgery. The shoulder is feeling better now compared to before surgery. 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 Functional Limitations: sleeping, reaching behind back, reaching overhead, lifting Prior Level of Function: Independent without limitations Intake Information: Prescription present Previous Treatment: Surgery Pain: Pain Pain Level: 7 Pain Location: Shoulder - Left Description: Sore, Sharp PROMIS Scales Higher is Better 01/24/2023 09/19/2022 Phys Func - Score 36 (moderate dysfunction) 35 (moderate dysfunction) Phys Func - Percentile 8 % 7 % Self-Eff Symptom - Score 36 (Low) 36 (Low) Self-Eff Symptom - Percentile 8 % 8 % T-scores: mean of general population = 50. 5 points is clinically meaningfully difference Percentiles provide an indication of how the patient's score ranks in relation to the general population. Higher percentile rankings indicate better function/quality of life. 50th percentile is the average of the general population and indicates half of respondents had a worse score. OBJECTIVE MEASURES WITH LEVEL OF FUNCTION: Posture / Alignment Posture: Forward head, Fair UE AROM R UE AROM: WNL L UE AROM: Deferred due to post-op status UE PROM L Shoulder Flex: 55 Degrees (Painful at this point) L Shoulder Internal Rotation: (WNL) L Shoulder External Rotation: 0 Degrees Education: Education Learning Preferences: Demonstration, Explanation, Performance, Printed Materials Barriers: None Learning/educational needs: Home exercise program, Plan of Care Education Provided: Yes, see treatment interventions for education provided Education Provided To: Patient Education Mode/Type: Demonstration, Explanation/Discussion, Literature/Printed Materials, Performance Response to Education/Teach Back: States/Identifies, Return Demonstration TREATMENT: PT Treatment Interventions: Therapeutic Exercise Evaluation Therapeutic Exercise: 1: Discussed therapy goals, exam findings, and purpose of the HEP. HEP ahndout provided. Discussed rehab precautions and shoulder restrictions. 2: Shoulder slides on board 2 x 10 3: Seated pulleys x 10 4: Wand ER/IR x 10 Skilled Intervention: Patient was educated in proper exercise technique and purpose for exercises. Skilled judgment was provided in selection of appropriate interventions. Provided written instruction for home exercise program to facilitate proper performance and compliance. Correct performance of therapeutic exercises was facilitated with verbal and visual cuing. Billing * Evaluation Low Complexity: 1 Unit Therapeutic Exercise Treatment Minutes: 23 Total Treatment Time Minutes (timed/untimed): 41 (more content not included)... [facility] 01-25-2023 History of Present illness Narrative Episode Visit Count: 1 Therapist That Will Accept/Oversee The Plan Of Care: Lazaro Gonzalez Start of Care Date: 01/25/23 Onset Date: 04/20/22 Patient Identified by Name and Date of : Yes REHABILITATION AND SPORTS THERAPY PHYSICAL THERAPY EVALUATION PLAN OF CARE: Assessment: Marian Koch presents with diagnosis of L shoulder RTC repair, SAD, and biceps tenodesis that interferes with sleeping, reaching behind back, reaching overhead, lifting . He presents with impairments in ADL's, independence in exercise, overall function, range of motion, and strength. PROMIS (Patient-Reported Outcomes Measurement Information System) scores were reviewed and all domains identified as a rehabilitation concern. Prognosis for therapy is Good due to: current objective clinical presentation, good overall health status . He will benefit from skilled therapy services to meet the goals established for this plan of care as noted below. Goals for Episode of Care: created on 01/25/23 through 05/17/23 Pt will be able to complete work duties without pain or any functional limitations in 14 weeks or less [place] in home exercise program. Perform reaching overhead without pain. Increase ROM of L shoulder to 0-160 degrees or more of elevation for return to PLOF Increased strength of LUE to 5/5 via MMT for ease of lifting objects, getting dressed, and washing hair Planned Interventions, Frequency, and Duration: Current Frequency: 1x/month Planned Treatment Interventions: PLAN FOR NEXT VISIT: Follow rehab protocol Patient demonstrates good understanding of plan of care and treatment. The above goals and plan of care were discussed and agreed upon by patient/family. SUBJECTIVE: Marian Koch is a 52 year old male seen today for L shoulder RCR repair. Avoid AROM of the elbow due to biceps tenodesis. Failed PT before so had surgery. The shoulder is feeling better now compared to before surgery. 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 Functional Limitations: sleeping, reaching behind back, reaching overhead, lifting Prior Level of Function: Independent without limitations Intake Information: Prescription present Previous Treatment: Surgery Pain: Pain Pain Level: 7 Pain Location: Shoulder - Left Description: Sore, Sharp PROMIS Scales Higher is Better 01/24/2023 09/19/2022 Phys Func - Score 36 (moderate dysfunction) 35 (moderate dysfunction) Phys Func - Percentile 8 % 7 % Self-Eff Symptom - Score 36 (Low) 36 (Low) Self-Eff Symptom - Percentile 8 % 8 % T-scores: mean of general population = 50. 5 points is clinically meaningfully difference Percentiles provide an indication of how the patient's score ranks in relation to the general population. Higher percentile rankings indicate better function/quality of life. 50th percentile is the average of the general population and indicates half of respondents had a worse score. OBJECTIVE MEASURES WITH LEVEL OF FUNCTION: Posture / Alignment Posture: Forward head, Fair UE AROM R UE AROM: WNL L UE AROM: Deferred due to post-op status UE PROM L Shoulder Flex: 55 Degrees (Painful at this point) L Shoulder Internal Rotation: (WNL) L Shoulder External Rotation: 0 Degrees Education: Education Learning Preferences: Demonstration, Explanation, Performance, Printed Materials Barriers: None Learning/educational needs: Home exercise program, Plan of Care Education Provided: Yes, see treatment interventions for education provided Education Provided To: Patient Education Mode/Type: Demonstration, Explanation/Discussion, Literature/Printed Materials, Performance Response to Education/Teach Back: States/Identifies, Return Demonstration TREATMENT: PT Treatment Interventions: Therapeutic Exercise Evaluation Therapeutic Exercise: 1: Discussed therapy goals, exam findings, and purpose of the HEP. HEP ahndout provided. Discussed rehab precautions and shoulder restrictions. 2: Shoulder slides on board 2 x 10 3: Seated pulleys x 10 4: Wand ER/IR x 10 Skilled Intervention: Patient was educated in proper exercise technique and purpose for exercises. Skilled judgment was provided in selection of appropriate interventions. Provided written instruction for home exercise program to facilitate proper performance and compliance. Correct performance of therapeutic exercises was facilitated with verbal and visual cuing. Billing * Evaluation Low Complexity: 1 Unit Therapeutic Exercise Treatment Minutes: 23 Total Treatment Time Minutes (timed/untimed): 41 Lazaro Gonzalez PT documented in this encounter [facility] 01-25-2023 Miscellaneous Notes Marian is 3 weeks postop. Refill was approved. PDMP website checked and validated. All prescriptions have been APPROPRIATELY filled. No suspicious activity was identified. 01/25/2023 by Arnie Contreras PA-C Patient has been identified by name and date of : Yes Requested Prescriptions Pending Prescriptions Disp Refills oxyCODONE-acetaminophen (PERCOCET) 5-325 mg tablet 25 tablet 0 Sig: Take 1 tablet by mouth every 6 hours as needed for pain. RX INSTRUCTIONS: Patient aware RX will be sent to pharmacy. No need to notify patient unless it is denied. Sarah Fung documented in this encounter [facility] 01-21-2023 Note HNO ID: [id number] Author: Maria Elena Dockery MD Service: ? Author Type: Physician Type: Progress Notes Filed: 01/21/2023 10:14 AM Note Text: Maria Elena Dockery MD Interventional Cardiology [facility] [id number], [place] [address] [phone] Chief Complaint Patient presents with: New Patient HISTORY OF PRESENT ILLNESS: Mr. Koch is a 52 year old male seen my office today for assessment and management and establishment for cardiology service patient had very extensive cardiac history in the past longstanding history of coronary artery disease with bypass surgery in 2005 quadruple bypass consisted of a ROBERT to the LAD vein graft to the obtuse marginal and vein graft to the ramus and the vein graft to the PDA he has been doing well from the cardiac point of view until now patient to kidney transplant first 1 was in 1993 and the second 1 was in 2009 baseline creatinine is now is 1.6 he was on hemodialysis and peritoneal dialysis at 1 point in his life in the past currently on 3 immunosuppressive therapy asymptomatic denies chest pain or shortness of breath No angina No signs or symptoms congestive heart failure Cardiac Risk Factors age (male over 45, female over 55), hyperlipidemia, history of smoking, hypertension, family history of CAD PAST MEDICAL HISTORY Diagnosis Date CAD (coronary artery disease) 02/20/2010 Inactive since CABG. Last heart cath 2006, Dr. Demarco Summers 06/14/15 Lexiscan nuclear stress: no ischemia. Normal L and R sizes and systolic function. EF 56% 10/01/17ech. RV size NL, RVSF ocardiogram Dr. Dameon Mac: LV size NL, mild concenric LVH, EF 56%. RV size NL. RVSF NL. AI 1-2+ Claudication of both lower extremities ([facility]) 08/22/2017 02/05/19 PVR Johana Jauregui: no stenosis left fem-pop bypass. Unable to get CHEL due to non-compressible vesels11/12/[address] Zavala [facility]: RIGHT: resting CHEL > 1.81, non-compressible arteries; TBI 0.40 = PAD; Right ankle: Moderate disease at rest. Right iliofemoral disease. Severe disease noted, post exercise, by tracings. LEFT SIDE: resting CHEL 1.81, non-compressible vessels, CHEL not accurate. COPD (chronic obstructive pulmonary disease) ([facility]) Coronary atherosclerosis of unspecified type of vessel, [place] or graft Coronary artery disease Current mild episode of major depressive disorder ([facility]) 02/05/2019 Depression 03/07/2012 DVT (deep venous thrombosis) ([facility]) End stage renal disease ([facility]) Due to blocked ureter as child GERD (gastroesophageal reflux disease) 03/05/2014 Hyperhomocysteinemia ([facility]) 12/08/2017 Hyperparathyroidism ([facility]) 12/08/2017 Secondary to renal failure. On Sensipar in remote past. Kidney dialysis 1988, and 2000 Neurogenic bladder VIC (obstructive sleep apnea) 08/04/2011 declines CPAP Pulmonary embolism (HCC) 10-12 years ago Pulmonary nodules Foreign body reaction in pulmonary vasculature, ? cause. Extensive evaluation ruled out vasculitis, fungal inffection, pneumoconiosis. May have been from gortex graft .Resulted in multiple pulmonary nodules. Radiculopathy, lumbar region 11/28/2016 Renal failure 02/20/2010 Renal failure, chronic, stage 3 (moderate) (HCC) folllowing renal transplant Renal stones Steroid long-term use Transplant kidney 1993 and 2009 Failed in 2000(right in , removed in ; left ') PAST SURGICAL HISTORY Procedure Laterality Date CABG (4) VEIN GRAFTS AND ARTERIAL GRAFT(S) 2004 COLONOSCOPY FLX DX W/COLLJ SPEC WHEN PFRMD 06/14/[address] Dodge PERICARDIAL WINDOW, DRAINAGE 1991 RENAL ALLOTRANSPLANTATION W/ GRAFT W/O RECIPIENT NEPHRECTOMY 1993, repeat 2019. FAMILY HISTORY Problem Relation Age of Onset Arthritis Father Cancer Father Lung, 1990. Heart Father Heart Mother 2012. Social History Tobacco Use Smoking status: Former Packs/day: 1.25 Years: 15.00 Pack years: 18.75 Types: Cigarettes Quit date: 09/06/2011 Years since quittin.3 Smokeless tobacco: Current Types: Chew Vaping Use Vaping Use: Never used Substance Use Topics Alcohol use: No Drug use: No ALLERGIES Allergen Reactions Bee Sting Hives, Swelling Darvocet-N 100 [Pro* Hives Medications: Current Outpatient Medications Medication Sig Dispense Refill oxyCODONE-acetaminophen (PERCOCET) 5-325 mg tablet Take 1 tablet by mouth every 6 hours as needed for pain. 25 tablet 0 alendronate (FOSAMAX) 70 mg tablet Take 1 tablet by mouth one time a week. Take with a full glass of water, on an empty stomach; do NOT lie down for 30minutes. 12 tablet 3 atorvastatin (LIPITOR) 80 mg tablet Take 1 tablet by mouth daily at bedtime. 90 tablet 3 albuterol HFA (PROVENTIL HFA, VENTOLIN HFA) 90 mcg/actuation inhaler INHALE 2 PUFFS BY MOUTH EVERY 6 HOURS NEEDED DIRECTED 6.7 Each 5 CARDURA XL 8 mg 24 hr tablet TAKE 1 TABLET BY MOUTH EVERY DAY WITH BREAKFAST 90 tablet 3 predniSONE (DELTASONE) 5 mg tablet Take 1 ta (more content not included)... [facility] 01-21-2023 History of Present illness Narrative Images from the original note were not included. Maria Elena Dockery MD Interventional Cardiology [facility] [address], [place] [address] [phone] Chief Complaint Patient presents with: New Patient HISTORY OF PRESENT ILLNESS: Mr. Koch is a 52 year old male seen my office today for assessment and management and establishment for cardiology service patient had very extensive cardiac history in the past longstanding history of coronary artery disease with bypass surgery in 2005 quadruple bypass consisted of a ROBERT to the LAD vein graft to the obtuse marginal and vein graft to the ramus and the vein graft to the PDA he has been doing well from the cardiac point of view until now patient to kidney transplant first 1 was in 1993 and the second 1 was in 2009 baseline creatinine is now is 1.6 he was on hemodialysis and peritoneal dialysis at 1 point in his life in the past currently on 3 immunosuppressive therapy asymptomatic denies chest pain or shortness of breath No angina No signs or symptoms congestive heart failure Cardiac Risk Factors age (male over 45, female over 55), hyperlipidemia, history of smoking, hypertension, family history of CAD PAST MEDICAL HISTORY Diagnosis Date CAD (coronary artery disease) 02/20/2010 Inactive since CABG. Last heart cath 2006, Dr. Demarco Summers 06/14/15 Lexiscan nuclear stress: no ischemia. Normal L and R sizes and systolic function. EF 56% 10/01/17ech. RV size NL, RVSF ocardiogram Dr. Dameon Mac: LV size NL, mild concenric LVH, EF 56%. RV size NL. RVSF NL. AI 1-2+ Claudication of both lower extremities (HCC) 08/22/2017 02/05/19 PVR Johana Jauregui: no stenosis left fem-pop bypass. Unable to get CHEL due to non-compressible vesels11/12/[address] Zavala [facility]: RIGHT: resting CHEL > 1.81, non-compressible arteries; TBI 0.40 = PAD; Right ankle: Moderate disease at rest. Right iliofemoral disease. Severe disease noted, post exercise, by tracings. LEFT SIDE: resting CHEL 1.81, non-compressible vessels, CHEL not accurate. COPD (chronic obstructive pulmonary disease) ([facility]) Coronary atherosclerosis of unspecified type of vessel, [place] or graft Coronary artery disease Current mild episode of major depressive disorder ([facility]) 02/05/2019 Depression 03/07/2012 DVT (deep venous thrombosis) ([facility]) End stage renal disease ([facility]) Due to blocked ureter as child GERD (gastroesophageal reflux disease) 03/05/2014 Hyperhomocysteinemia ([facility]) 12/08/2017 Hyperparathyroidism ([facility]) 12/08/2017 Secondary to renal failure. On Sensipar in remote past. Kidney dialysis 1988, and 2000 Neurogenic bladder VIC (obstructive sleep apnea) 08/04/2011 declines CPAP Pulmonary embolism ([facility]) 10-12 years ago Pulmonary nodules Foreign body reaction in pulmonary vasculature, ? cause. Extensive evaluation ruled out vasculitis, fungal inffection, pneumoconiosis. May have been from gortex graft .Resulted in multiple pulmonary nodules. Radiculopathy, lumbar region 11/28/2016 Renal failure 02/20/2010 Renal failure, chronic, stage 3 (moderate) ([facility]) folllowing renal transplant Renal stones Steroid long-term use Transplant kidney 1993 and 2009 Failed in 2000(right in '94, removed in '; left ') PAST SURGICAL HISTORY Procedure Laterality Date CABG (4) VEIN GRAFTS & ARTERIAL GRAFT(S) 2004 COLONOSCOPY FLX DX W/COLLJ SPEC WHEN PFRMD 06/14/[address] Dodge PERICARDIAL WINDOW, DRAINAGE 1991 RENAL ALLOTRANSPLANTATION W/ GRAFT W/O RECIPIENT NEPHRECTOMY 1993, repeat 2019. FAMILY HISTORY Problem Relation Age of Onset Arthritis Father Cancer Father Lung, 1990. Heart Father Heart Mother 2012. Social History Tobacco Use Smoking status: Former Packs/day: 1.25 Years: 15.00 Pack years: 18.75 Types: Cigarettes Quit date: 09/06/2011 Years since quittin.3 Smokeless tobacco: Current Types: Chew Vaping Use Vaping Use: Never used Substance Use Topics Alcohol use: No Drug use: No ALLERGIES Allergen Reactions Bee Sting Hives, Swelling Darvocet-N 100 [Pro* Hives Medications: Current Outpatient Medications Medication Sig Dispense Refill oxyCODONE-acetaminophen (PERCOCET) 5-325 mg tablet Take 1 tablet by mouth every 6 hours as needed for pain. 25 tablet 0 alendronate (FOSAMAX) 70 mg tablet Take 1 tablet by mouth one time a week. Take with a full glass of water, on an empty stomach; do NOT lie down for 30minutes. 12 tablet 3 atorvastatin (LIPITOR) 80 mg tablet Take 1 tablet by mouth daily at bedtime. 90 tablet 3 albuterol HFA (PROVENTIL HFA, VENTOLIN HFA) 90 mcg/actuation inhaler INHALE 2 PUFFS BY MOUTH EVERY 6 HOURS NEEDED DIRECTED 6.7 Each 5 CARDURA XL 8 mg 24 hr tablet TAKE 1 TABLET BY MOUTH EVERY DAY WITH BREAKFAST 90 tablet 3 predniSONE (DELTASONE) 5 mg tablet Take 1 tablet by mouth once daily. umeclidinium-vilanterol (ANORO ELLIPTA) 62.5-25 mcg/actuation inhaler INHALE 1 INHALATION INSTRUCTED ONCE DAILY. 1 Each 11 albuterol (PROVENTIL) 2.5 mg /3 mL (0.083 %) nebulizer solution Use 3 mL via nebulizer every 4 hours as needed for Wheezing/Shortness of Breath. Use over 5-15minutes. 1 Package 2 ASTAGRAF XL 0.5 mg capsule Take 2 mg by mouth once daily. 11 amLODIPine (NORVASC) 5 mg tablet Take 5 mg by mouth once daily. carvedilol (COREG) 25 mg tablet Take 1 tablet by mouth twice daily with meals. 3 omeprazole (PRILOSEC) 20 mg capsule Take 20 mg by mouth once daily. acetaminophen (TYLENOL) 500 mg tablet Take 500 mg by mouth every 8 hours as needed. mycophenolate mofetil (CELLCEPT) 250 mg capsule Take 500 mg by mouth twice daily. 0 magnesium oxide 400 mg cap Take 1 capsule by mouth twice daily. 0 ASPIRIN 81 MG TAB Take one(1) tablet daily. 0 0 cyclobenzaprine (FLEXERIL) 10 mg tablet Take 1 tablet by mouth three times daily as needed for muscle spasm. (Patient not taking: Reported on 01/21/2023) 21 tablet 0 DULoxetine (CYMBALTA) 30 mg capsule Take 1 capsule by mouth once daily. (Patient not taking: Reported on 01/21/2023) 90 capsule 1 Current Facility-Administered Medications Medication Dose Route Frequency Provider Last Rate Last Admin perflutren lipid microspheres 1.3 mL in NaCl (PF) 0.9% 10 mL injection (DEFINITY) INTRAVENOUS DIRECTED PRN Ledy Ivy MD sodium chloride 0.9 % (flush) 10 mL (BD POSIFLUSH) 10 mL INTRAVENOUS DIRECTED PRN Ledy Ivy MD Review of Systems Constitutional: Negative for chills, diaphoresis, fever, malaise/fatigue and weight loss. HENT: Negative for congestion, ear discharge, ear pain, hearing loss, nosebleeds, sinus pain, sore throat and tinnitus. Eyes: Negative for blurred vision, double vision, photophobia, pain, discharge and redness. Respiratory: Negative for cough, hemoptysis, sputum production, shortness of breath, wheezing and stridor. Cardiovascular: Negative for chest pain, palpitations, orthopnea, claudication, leg swelling and PND. Gastrointestinal: Negative for abdominal pain, blood in stool, constipation, diarrhea, heartburn, melena, nausea and vomiting. Genitourinary: Negative for dysuria, flank pain, frequency, hematuria and urgency. Musculoskeletal: Negative for back pain, falls, joint pain, myalgias and neck pain. Skin: Negative for itching and rash. Neurological: Negative for dizziness, tingling, tremors, sensory change, speech change, focal weakness, seizures, loss of consciousness, weakness and headaches. Endo/Heme/Allergies: Negative for environmental allergies and polydipsia. Does not bruise/bleed easily. Psychiatric/Behavioral: Negative for depression, hallucinations, memory loss, substance abuse and suicidal ideas. The patient is not nervous/anxious and does not have insomnia. Physical Examination: Vitals:BP 110/64 Pulse 58 Ht 5' 5 (1.65m) Wt 149 lb 9.6 oz (67.9kg) SpO2 98% BMI 24.89 kg/(m^2). BP w/Orthostatic Vitals Date and Time Orthostatic BP Orthostatic Pulse BP Pulse BP Position BP Site BP Cuff Size 01/21/23 0941 -- -- 110/64 58 -- -- -- Last 2 Encounter Wt Readings: Date: Wt: 01/21/2023 67.9 kg (149 lb 9.6 oz) 12/18/2022 67.9 kg (149 lb 9.6 oz) Physical Exam Constitutional: General: He is not in acute distress. Appearance: He is not diaphoretic. HENT: Head: Normocephalic and atraumatic. Right Ear: External ear normal. Left Ear: External ear normal. Nose: Nose normal. Mouth/Throat: Mouth: Mucous membranes are moist. Eyes: General: Right eye: No discharge. Left eye: No discharge. Conjunctiva/sclera: Conjunctivae normal. Pupils: Pupils are equal, round, and reactive to light. Cardiovascular: Rate and Rhythm: Normal rate and regular rhythm. Heart sounds: Normal heart sounds, S1 normal and S2 normal. No murmur heard. No friction rub. No gallop. No S3 or S4 sounds. Pulmonary: Effort: Pulmonary effort is normal. No respiratory distress. Breath sounds: Normal breath sounds. No wheezing or rales. Chest: Chest wall: No tenderness. Abdominal: General: Abdomen is flat. Musculoskeletal: General: Normal range of motion. Cervical back: Normal range of motion and neck supple. Skin: General: Skin is warm and dry. Neurological: Mental Status: He is alert and oriented to person, place, and time. Psychiatric: Mood and Affect: Mood normal. Thought Content: Thought content normal. Pertinent Labs: CBC: Hemoglobin (g/dL) Date Value 10/19/2022 12.3 06/05/2021 11.7 Hematocrit (%) Date Value 10/19/2022 36.4 06/05/2021 35.0 WBC (k/uL) Date Value 10/19/2022 4.91 06/05/2021 6.77 Platelet Count (k/uL) Date Value 10/19/2022 124 06/05/2021 112 BMP: Glucose (mg/dL) Date Value 10/19/2022 87 06/05/2021 124 Potassium (mmol/L) Date Value 10/19/2022 4.6 06/05/2021 4.6 Sodium (mmol/L) Date Value 10/19/2022 138 06/05/2021 138 Chloride (mmol/L) Date Value 10/19/2022 103 06/05/2021 106 CO2 (mmol/L) Date Value 10/19/2022 26 06/05/2021 20 Creatinine (mg/dL) Date Value 10/19/2022 1.63 06/05/2021 2.22 BUN (mg/dL) Date Value 10/19/2022 19 06/05/2021 29 Anion Gap (mmol/L) Date Value 10/19/2022 9 06/05/2021 12 Calcium (mg/dL) Date Value 06/05/2021 10.7 Calcium, Total (mg/dL) Date Value 10/19/2022 10.5 INR: Lipid Profile: Cholesterol, Total Date Value Ref Range Status 10/19/2022 115 <200 mg/dL Final Comment: <200 mg/dL, Desirable 200-239 mg/dL, Borderline high >239 mg/dL, High HDL Cholesterol Date Value Ref Range Status 10/19/2022 57 >39 mg/dL Final Comment: 40-59 mg/dL, Acceptable >59 mg/dL, High: Negative risk factor for coronary heart disease <40 mg/dL, Low: Positive risk factor for coronary heart disease LDL Cholesterol Date Value Ref Range Status 10/19/2022 44 <100 mg/dL Final Comment: <100 mg/dL, Optimal 100-129 mg/dL, Near optimal/above optimal 130-159 mg/dL, Borderline high 160-189 mg/dL, High >189 mg/dL, Very high Secondary prevention optimal LDL Cholesterol levels are recommended to be < 70 mg/dL Triglyceride Date Value Ref Range Status 10/19/2022 69 <150 mg/dL Final Comment: <150 mg/dL, Normal 150-199 mg/dL, Borderline high 200-499 mg/dL, High >499 mg/dL, Very high Hemoglobin A1C: No results found for: HGBA1C TSH: No results found for: TSHREFL Prior Cardiac Testing Ekg Echo Assessment and Plan: 52 years old gentleman with extensive cardiac history and bypass surgery before Coronary artery disease Status post bypass surgery No angina On good medical therapy 2. Aortic insufficiency Moderate in severity with no symptoms Repeat echo in a year 3. Peripheral vascular disease 4. Kidney transplant follow up planning: One year Electronically signed by Maria Elena Dockery MD on January 21, 2023, 10:09 AM The above note was partially created using a dictation recognition software. A reasonable attempt has been made to correct any errors. documented in this encounter [facility] 01-18-2023 Note HNO ID: [id number] Author: Abraham Evans PA-C Service: ? Author Type: Physician Pressure Sealer And Tester Type: Progress Notes Filed: 01/18/2023 12:50 PM Note Text: POST OP Abraham Evans PA-C Orthopaedics [address] [id number] Dept: [phone] Mr. Koch presents today for his 2 week visit from: status post left shoulder arthroscopy, rc repair, sad/acromioplasty, biceps tenodesis with Dr. Doss on 01/03/2023. History: Patient reports mild pain. Pain has been controlled with 0.5 tablet of percocet. He is doing well postoperatively. Patients rates his condition as improving. The patient denies warmth, discharge,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 with physical therapy and did not help at all per pt. Would like to discuss surgery options. Pain history is noted as above. Previous Treatments: Ice: Yes Heat: Yes Brace: No NSAIDs: No Injections: Yes, had 2 injections 06/07/22, 09/24/22 Surgeries: No Physical Therapy: Yes Review of Systems: Patient did not have, and does not currently have, any weight loss, malaise, fever, chills, headache, chest pain, chest pressure, palpitations, cough, shortness of breath, orthopnea, paroxsymal nocturnal dyspnea, nausea, vomiting, diarrhea, constipation, melena, hematochezia, urinary difficulties, prolonged bleeding, easily bruising, heat or cold intolerance, new onset joint pain or swelling, new onset extremity weakness or numbness, new onset auditory or visual disturbances, lightheadedness, dizziness, partial loss of consciousness or full loss of consciousness. Current Outpatient Medications on File Prior to Visit Medication Sig alendronate (FOSAMAX) 70 mg tablet Take 1 tablet by mouth one time a week. Take with a full glass of water, on an empty stomach; do NOT lie down for 30minutes. atorvastatin (LIPITOR) 80 mg tablet Take 1 tablet by mouth daily at bedtime. albuterol HFA (PROVENTIL HFA, VENTOLIN HFA) 90 mcg/actuation inhaler INHALE 2 PUFFS BY MOUTH EVERY 6 HOURS NEEDED DIRECTED Promethazine-DM (PHENERGAN-DM) 6.25-15 mg/5 mL syrup TAKE 5 ML ORALLY EVERY 6 HOURS NEEDED FOR COUGH (Patient not taking: Reported on 09/24/2022) cyclobenzaprine (FLEXERIL) 10 mg tablet Take 1 tablet by mouth three times daily as needed for muscle spasm. CARDURA XL 8 mg 24 hr tablet TAKE 1 TABLET BY MOUTH EVERY DAY WITH BREAKFAST albuterol HFA (PROAIR HFA) 90 mcg/actuation inhaler Inhale 2 Puffs as instructed every 6 hours as needed. predniSONE (DELTASONE) 5 mg tablet Take 1 tablet by mouth once daily. umeclidinium-vilanterol (ANORO ELLIPTA) 62.5-25 mcg/actuation inhaler INHALE 1 INHALATION INSTRUCTED ONCE DAILY. albuterol (PROVENTIL) 2.5 mg /3 mL (0.083 %) nebulizer solution Use 3 mL via nebulizer every 4 hours as needed for Wheezing/Shortness of Breath. Use over 5-15minutes. ASTAGRAF XL 0.5 mg capsule Take 2 mg by mouth once daily. DULoxetine (CYMBALTA) 30 mg capsule Take 1 capsule by mouth once daily. amLODIPine (NORVASC) 5 mg tablet Take 5 mg by mouth once daily. carvedilol (COREG) 25 mg tablet Take 1 tablet by mouth twice daily with meals. omeprazole (PRILOSEC) 20 mg capsule Take 20 mg by mouth once daily. acetaminophen (TYLENOL) 500 mg tablet Take 500 mg by mouth every 8 hours as needed. mycophenolate mofetil (CELLCEPT) 250 mg capsule Take 500 mg by mouth twice daily. magnesium oxide 400 mg cap Take 1 capsule by mouth twice daily. ASPIRIN 81 MG TAB Take one(1) tablet daily. No current facility-administered medications on file prior to visit. ALLERGIES Allergen Reactions Bee Sting Hives, Swelling Darvocet-N 100 [Pro* Hives Physical Exam: Vitals: There were no vitals taken for this visit. Psych: Pleasant, good affect and mood General Appearance: Well appearing, alert, in no acute distress, well-hydrated, well nourished.. Skin: Skin color, texture, turgor normal, no suspicious rashes or lesions. Peripheral Pulses: Normal. Neurologic: Gait normal. Reflexes normal and symmetric. Sensation grossly intact.. Lymph Nodes: No cervical lymphadenopathy, No supraclavicular lymphadenopathy, No axillary lymphadenopathy., and No inguinal lymphadenopathy.. Respiratory: No recent pulmonary infection, hemoptysis, chronic cough, or shortness of breath at rest Rheumatologic: Joint deformities: left shoulder pain Right Shoulder Exam Right shoulder exam is normal. Range of Motion Active abduction: 80 Passive abduction: 150 normal Extension: 40 normal External rotation: 10 normal Forward flexion: 110 normal Muscle Strength Abduction: 5/5 Internal rotation: 3/5 External rotation: 3/5 Supraspinatus: 3/5 Subscapularis: 4/5 Biceps: 4/5 Other Erythema: absent Sensation: normal Pulse: present Left Shoulder Exam Range of Motion Active abduction: abnormal Passive abduction: normal Extension: normal External rotation: abnormal Forward flexion: abnormal Internal rotation 0 degrees: normal Internal rotation 90 degrees: normal Muscle Strength Abduction: 5/5 Internal rotation: 3/5 External rotation: 3/5 Supraspinatus: 3/5 Subscapularis: 4/5 Biceps: 4/5 Tests Woodard test: positive Cross arm: negative Impingement: positive Drop arm: positive Other Erythema: absent Sensation: normal Pulse: present Imaging: Last MRI Shoulder - Impression Only MRI SHOULDER WO IVCON LT Exam End: 06/05/2022 11:31 AM (Final result) Impression: IMPRESSION: Rotator cuff tendinosis with partial-thickness full width tear of the supraspinatus tendon and small low-grade interstitial tear in the subscapularis tendon. Findings which may be seen with adhesive capsulitis. Additional findings as described. ... Assessment and Plan: Impression: Encounter Diagnosis ICD-10-CM 1. Chronic left shoulder pain M25.512 G89.29 2. Traumatic incomplete tear of left rotator cuff, initial encounter S46.012A 3. Impingement syndrome of left shoulder M75.42 4. Traumatic tear of left rotator cuff, unspecified tear extent, initial encounter S46.012A 5. Bursitis of left shoulder M75.52 6. Tendinitis of left shoulder M77.8 Plan: Today, in detail, through a thorough evaluation, we discussed possible etiologies of pain and our plans for further diagnostic and therapeutic interventions. We discussed strategies for decreasing pain and improving strength, stability and motion. Patient's questions were answered in detailed. Patient verbalizes understanding and agrees with the treatment plan as discussed. Defers injections as has had 2 in past Risks and benefits vs alternatives to treatment were discussed with patient. Risks including but not limited to blood loss, blood clot, infection, neurovascular injury, failure of procedure, need for revision operation, loss of life and loss of limb. Patient aware of risks and benefits and agrees to proceed with written consent for surgical intervention. Intaarticular biceps tenodesis Kidney transplant Discussed would not do open procedure for biceps d/t fact that he had previous surgery and surgery would not completely eliminate the pain he is having from biceps d/t grafts in the past. Patient aware. Would like to proceed with surgical intervention left shoulder Full passive ROM of shoulder today, no signs of adhesive capsulitis on exam, Patient aware and in agreement of plan. All questions answered. documented in this encounter [facility] 11-16-2022 Miscellaneous Notes Patient has been scheduled on 12/06/2022. Images from the original note were not included. ROBBIN Salinas LPN; [facility] 4 hours ago (11:28 AM) Can we please have scheduling assist patient with setting up a visit with Dr. Brittaney Doss? Patient is being referred by Dr. Baldwin for left shoulder pain. Thanks, Meredith Patient called. Verified name and date of . Patient is doing follow up call to find out if you are having him see Dr. Melara for his shoulder and if so will staff call for follow up? Patient is concerned because he goes back to work in January and wants to make sure he is not waiting unnecessarily. Please review and advise. Nara Theodore LPN documented in this encounter [facility] 11-08-2022 Note HNO ID: [id number] Author: Maynor Baldwin MD Service: ? Author Type: Physician Type: Progress Notes Filed: 11/08/2022 8:27 AM Note Text: Maynor Baldwin MD Department of Orthopaedics Orthopaedics [address] [facility] [address] Dept: [phone] Dept November 08, 2022 CHIEF COMPLAINT: Follow Up and Pain of the Left Shoulder HPI Patient is 6 weeks 3 days post visit left shoulder pain with injection given. Patient states injection only helped for about 4 days. He finished physical therapy yesterday. Continuing home exercises. Taking Tylenol for the pain and does not help. ASSESSMENT: M25.512, G89.29 Chronic left shoulder pain (primary encounter diagnosis) M75.42 Impingement syndrome of left shoulder M75.02 Adhesive capsulitis of left shoulder M75.112 Nontraumatic incomplete tear of left rotator cuff PLAN: Exhausted all conservative management. Unable to take NSAIDs due to his kidney transplant. I think after reviewing his nonoperative attempts and his MRI, shoulder scope with evaluation of his motion and manipulation is most appropriate. I will have him likely see one of my sports partners in case subscap needs to be addressed surgically as opposed to partial debridement. Mr. Marian Koch was advised as to contrast therapies and/or to take analgesics/anti-inflammatories as needed and all contraindications were reviewed. OBJECTIVE: Mr. Marian Koch is a pleasant 52 year old in no apparent distress. Gen:There were no vitals taken for this visit. nl development, non obese, no deformities ENT: Normocephalic, normal hearing, moist mucosa CV: Pulses:Radial= 2+ and symmetric, capillary refill < 2 secs, no peripheral edema/varicosities Skin: no rash, bruising or lesions. Good turgor. Psych: cooperative and appropriate, alert and oriented x 3, good mood and affect. Musculoskeletal: Still has pretty significant impingement signs and forward elevation of only 150 degrees. Imaging: Reviewed from prior MRI Supporting Subjective Information Below: Past Surgical History: PAST SURGICAL HISTORY Procedure Laterality Date CABG (4) VEIN GRAFTS AND ARTERIAL GRAFT(S) 2004 COLONOSCOPY FLX DX W/COLLJ SPEC WHEN PFRMD 06/14/[address] Dodge PERICARDIAL WINDOW, DRAINAGE 1991 RENAL ALLOTRANSPLANTATION W/ GRAFT W/O RECIPIENT NEPHRECTOMY 1993, repeat 2019. Medications: Current Outpatient Medications Medication Sig alendronate (FOSAMAX) 70 mg tablet Take 1 tablet by mouth one time a week. Take with a full glass of water, on an empty stomach; do NOT lie down for 30minutes. atorvastatin (LIPITOR) 80 mg tablet Take 1 tablet by mouth daily at bedtime. albuterol HFA (PROVENTIL HFA, VENTOLIN HFA) 90 mcg/actuation inhaler INHALE 2 PUFFS BY MOUTH EVERY 6 HOURS NEEDED DIRECTED cyclobenzaprine (FLEXERIL) 10 mg tablet Take 1 tablet by mouth three times daily as needed for muscle spasm. CARDURA XL 8 mg 24 hr tablet TAKE 1 TABLET BY MOUTH EVERY DAY WITH BREAKFAST albuterol HFA (PROAIR HFA) 90 mcg/actuation inhaler Inhale 2 Puffs as instructed every 6 hours as needed. predniSONE (DELTASONE) 5 mg tablet Take 1 tablet by mouth once daily. umeclidinium-vilanterol (ANORO ELLIPTA) 62.5-25 mcg/actuation inhaler INHALE 1 INHALATION INSTRUCTED ONCE DAILY. albuterol (PROVENTIL) 2.5 mg /3 mL (0.083 %) nebulizer solution Use 3 mL via nebulizer every 4 hours as needed for Wheezing/Shortness of Breath. Use over 5-15minutes. ASTAGRAF XL 0.5 mg capsule Take 2 mg by mouth once daily. DULoxetine (CYMBALTA) 30 mg capsule Take 1 capsule by mouth once daily. amLODIPine (NORVASC) 5 mg tablet Take 5 mg by mouth once daily. carvedilol (COREG) 25 mg tablet Take 1 tablet by mouth twice daily with meals. omeprazole (PRILOSEC) 20 mg capsule Take 20 mg by mouth once daily. acetaminophen (TYLENOL) 500 mg tablet Take 500 mg by mouth every 8 hours as needed. mycophenolate mofetil (CELLCEPT) 250 mg capsule Take 500 mg by mouth twice daily. magnesium oxide 400 mg cap Take 1 capsule by mouth twice daily. ASPIRIN 81 MG TAB Take one(1) tablet daily. Promethazine-DM (PHENERGAN-DM) 6.25-15 mg/5 mL syrup TAKE 5 ML ORALLY EVERY 6 HOURS NEEDED FOR COUGH (Patient not taking: Reported on 09/24/2022) No current facility-administered medications for this visit. Allergies: Bee Sting and Darvocet-N 100 [Propoxyphene N-Acetaminophen] ROS: General (negative for fatigue, malaise, weight loss/gain) HEENT (negative for headache, earache, recent vision changes, sinus pain, sore throat) Respiratory (no recent shortness of breath, hemoptysis) CV (negative for chest tightness, palpitations) Musculoskeletal (see HPI) Psych (no depression, anxiety) Maynor Baldwin MD [facility] 11-08-2022 History of Present illness Narrative Maynor Baldwin MD Department of Orthopaedics Orthopaedics [address] [place] [address] Dept: [phone] Dept November 08, 2022 CHIEF COMPLAINT: Follow Up and Pain of the Left Shoulder HPI Patient is 6 weeks 3 days post visit left shoulder pain with injection given. Patient states injection only helped for about 4 days. He finished physical therapy yesterday. Continuing home exercises. Taking Tylenol for the pain and does not help. ASSESSMENT: M25.512, G89.29 Chronic left shoulder pain (primary encounter diagnosis) M75.42 Impingement syndrome of left shoulder M75.02 Adhesive capsulitis of left shoulder M75.112 Nontraumatic incomplete tear of left rotator cuff PLAN: Exhausted all conservative management. Unable to take NSAIDs due to his kidney transplant. I think after reviewing his nonoperative attempts and his MRI, shoulder scope with evaluation of his motion and manipulation is most appropriate. I will have him likely see one of my sports partners in case subscap needs to be addressed surgically as opposed to partial debridement. Mr. Marian Koch was advised as to contrast therapies and/or to take analgesics/anti-inflammatories as needed and all contraindications were reviewed. OBJECTIVE: Mr. Marian Koch is a pleasant 52 year old in no apparent distress. Gen:There were no vitals taken for this visit. nl development, non obese, no deformities ENT: Normocephalic, normal hearing, moist mucosa CV: Pulses:Radial= 2+ and symmetric, capillary refill < 2 secs, no peripheral edema/varicosities Skin: no rash, bruising or lesions. Good turgor. Psych: cooperative and appropriate, alert and oriented x 3, good mood and affect. Musculoskeletal: Still has pretty significant impingement signs and forward elevation of only 150 degrees. Imaging: Reviewed from prior MRI Supporting Subjective Information Below: Past Surgical History: PAST SURGICAL HISTORY Procedure Laterality Date CABG (4) VEIN GRAFTS & ARTERIAL GRAFT(S) 2004 COLONOSCOPY FLX DX W/COLLJ SPEC WHEN PFRMD 06/14/[address] Dodge PERICARDIAL WINDOW, DRAINAGE 1991 RENAL ALLOTRANSPLANTATION W/ GRAFT W/O RECIPIENT NEPHRECTOMY 1993, repeat 2019. Medications: Current Outpatient Medications Medication Sig alendronate (FOSAMAX) 70 mg tablet Take 1 tablet by mouth one time a week. Take with a full glass of water, on an empty stomach; do NOT lie down for 30minutes. atorvastatin (LIPITOR) 80 mg tablet Take 1 tablet by mouth daily at bedtime. albuterol HFA (PROVENTIL HFA, VENTOLIN HFA) 90 mcg/actuation inhaler INHALE 2 PUFFS BY MOUTH EVERY 6 HOURS NEEDED DIRECTED cyclobenzaprine (FLEXERIL) 10 mg tablet Take 1 tablet by mouth three times daily as needed for muscle spasm. CARDURA XL 8 mg 24 hr tablet TAKE 1 TABLET BY MOUTH EVERY DAY WITH BREAKFAST albuterol HFA (PROAIR HFA) 90 mcg/actuation inhaler Inhale 2 Puffs as instructed every 6 hours as needed. predniSONE (DELTASONE) 5 mg tablet Take 1 tablet by mouth once daily. umeclidinium-vilanterol (ANORO ELLIPTA) 62.5-25 mcg/actuation inhaler INHALE 1 INHALATION INSTRUCTED ONCE DAILY. albuterol (PROVENTIL) 2.5 mg /3 mL (0.083 %) nebulizer solution Use 3 mL via nebulizer every 4 hours as needed for Wheezing/Shortness of Breath. Use over 5-15minutes. ASTAGRAF XL 0.5 mg capsule Take 2 mg by mouth once daily. DULoxetine (CYMBALTA) 30 mg capsule Take 1 capsule by mouth once daily. amLODIPine (NORVASC) 5 mg tablet Take 5 mg by mouth once daily. carvedilol (COREG) 25 mg tablet Take 1 tablet by mouth twice daily with meals. omeprazole (PRILOSEC) 20 mg capsule Take 20 mg by mouth once daily. acetaminophen (TYLENOL) 500 mg tablet Take 500 mg by mouth every 8 hours as needed. mycophenolate mofetil (CELLCEPT) 250 mg capsule Take 500 mg by mouth twice daily. magnesium oxide 400 mg cap Take 1 capsule by mouth twice daily. ASPIRIN 81 MG TAB Take one(1) tablet daily. Promethazine-DM (PHENERGAN-DM) 6.25-15 mg/5 mL syrup TAKE 5 ML ORALLY EVERY 6 HOURS NEEDED FOR COUGH (Patient not taking: Reported on 09/24/2022) No current facility-administered medications for this visit. Allergies: Bee Sting and Darvocet-N 100 [Propoxyphene N-Acetaminophen] ROS: General (negative for fatigue, malaise, weight loss/gain) HEENT (negative for headache, earache, recent vision changes, sinus pain, sore throat) Respiratory (no recent shortness of breath, hemoptysis) CV (negative for chest tightness, palpitations) Musculoskeletal (see HPI) Psych (no depression, anxiety) Maynor Baldwin MD documented in this encounter [facility] 11-08-2022 Note HNO ID: [id number] Author: Tonny De Guzman PT Service: ? Author Type: Physical Therapist Type: Progress Notes Filed: 11/07/2022 11:21 PM Note Text: Episode Visit Count: 10 Therapist That Will Accept/Oversee The Plan Of Care: Tonny De Guzman PT Start of Care Date: 09/20/22 Onset Date: 04/20/22 Patient Identified by Name and Date of : Yes REHABILITATION AND SPORTS THERAPY PHYSICAL THERAPY DISCONTINUANCE OF CARE PLAN OF CARE UPDATE: Assessment: Marian Koch is discontinued from Physical Therapy services due to maximal benefit.. Patient was seen for 10 visits from Start of Care Date: 09/20/22 to 11/07/2022 and treatment included: Therapeutic exercise, Self-fdc management, Patient/Family/Caregiver Education, and Body mechanics training. Pt has been seen for 10 visits over 6 weeks with minimal to no improvement despite compliance with all instructions. Updated: 10/17/22 and 11/07/22 Goals for Episode of Care: created on 09/20/22 through 11/01/22 [place] in home exercise program. - MET Patient will decrease pain to 0-2/10 at rest and with functional activities to allow patient to improve sleeping, dressing and grooming. - Not MET Patient will increase active ROM of L shoulder to WFL, symmetrical and pain-free to allow pt to to improve performance of ADLs. - Not MET Perform sleeping, dressing, grooming and all reaching with L UE with decreased report of symptoms/pain in 6 weeks. - Not MET Increased strength of L shoulder to symmetrical with dynamometer for improved completion of ADLs - Not MET Patient Goals: decrease pain - Not MET SUBJECTIVE: Patient Reason for Visit: Pt reports that overall his L shoulder is the same or worse since evaluation. He reports that especially last night and today, his pain is increased without explanation. He reports compliance with HEP 2x day. He reports that sleeping, reaching, dressing and grooming are all equally painful and limited functionally. Pain: Pain Pain Level: 8 Pain Location: Shoulder - Left (anterior aspect) Description: Aching Frequency: Continuous Post Treatment Pain Post Treatment Pain Level: Worse Post Treatment Pain Location: Shoulder - Left Post Treatment Symptoms: During and after session, pt reported increased L shoulder pain PROMIS Scales Higher is Better 08/06/2022 09/09/2022 09/19/2022 Phys Func - Score - - 35 (moderate dysfunction) Phys Func - Percentile - - 7 % GH Physical - Score 47.7 (Good) 39.8 (Fair) - GH Physical - Percentile 41 % 15 % - GH Mental - Score 45.8 (Good) 45.8 (Good) - GH Mental - Percentile 34 % 34 % - Self-Eff Symptom - Score - - 36 (Low) Self-Eff Symptom - Percentile - - 8 % T-scores: mean of general population = 50. 5 points is clinically meaningfully difference Percentiles provide an indication of how the patient's score ranks in relation to the general population. Higher percentile rankings indicate better function/quality of life. 50th percentile is the average of the general population and indicates half of respondents had a worse score. T-scores: mean of general population = 50. 5 points is clinically meaningfully difference Percentiles provide an indication of how the patient's score ranks in relation to the general population. Higher percentile rankings indicate better function/quality of life. 50th percentile is the average of the general population and indicates half of respondents had a worse score. OBJECTIVE MEASURES WITH LEVEL OF FUNCTION: Shoulder Observations L Shoulder Palpation Tenderness: Bicipital groove (sub AC space, anterior aspect of L shoulder) UE AROM L UE AROM: seated (All AROM is painful) L Shoulder Extension: 56 Degrees L Shoulder Flex: 109 Degrees L Shoulder ABduction: 104 Degrees L Shoulder Internal Rotation (Functional): 17cm less than R reaching behind back L Shoulder External Rotation (Functional): 7cm less than R reaching behind head. UE and Cervical Strength L UE Strength: MMT deferred secondary to increased pain and severely limited AROM TREATMENT: Therapeutic Exercise: 1: SciFit StepOne seat #8 x5 minutes with no resistance and just a light warm up (Pt provided an update on his condition) 2: seated rope and rin for L shoulder flexion 2x10 (very painful, limited motion and a lot of popping) 3: seated rope and rin for L shoulder abduction 2x10 (very painful and limited ROM) 4: Re-assessment results were reviewed with patient in detail and used as a basis for d/c recommendation. After 2 months of PT and compliance with all recommendations, his L shoulder condition is the same or worse functionally. 5: Therapist spent a significant amount of time explaining the anatomy of L shoulder, his MRI findings, functional limitations and possible explanation of his symptoms. Shoulder models and pictures were used to clarify all education. 6: HEP was reviewed and he was encouraged to continue wi (more content not included)... [facility] 11-07-2022 History of Present illness Narrative Episode Visit Count: 10 Therapist That Will Accept/Oversee The Plan Of Care: Tonny De Guzman PT Start of Care Date: 09/20/22 Onset Date: 04/20/22 Patient Identified by Name and Date of : Yes REHABILITATION AND SPORTS THERAPY PHYSICAL THERAPY DISCONTINUANCE OF CARE PLAN OF CARE UPDATE: Assessment: Marian Koch is discontinued from Physical Therapy services due to maximal benefit.. Patient was seen for 10 visits from Start of Care Date: 09/20/22 to 11/07/2022 and treatment included: Therapeutic exercise, Self-fdc management, Patient/Family/Caregiver Education, and Body mechanics training. Pt has been seen for 10 visits over 6 weeks with minimal to no improvement despite compliance with all instructions. Updated: 10/17/22 and 11/07/22 Goals for Episode of Care: created on 09/20/22 through 11/01/22 [place] in home exercise program. - MET Patient will decrease pain to 0-2/10 at rest and with functional activities to allow patient to improve sleeping, dressing and grooming. - Not MET Patient will increase active ROM of L shoulder to WFL, symmetrical and pain-free to allow pt to to improve performance of ADLs. - Not MET Perform sleeping, dressing, grooming and all reaching with L UE with decreased report of symptoms/pain in 6 weeks. - Not MET Increased strength of L shoulder to symmetrical with dynamometer for improved completion of ADLs - Not MET Patient Goals: decrease pain - Not MET SUBJECTIVE: Patient Reason for Visit: Pt reports that overall his L shoulder is the same or worse since evaluation. He reports that especially last night and today, his pain is increased without explanation. He reports compliance with HEP 2x day. He reports that sleeping, reaching, dressing and grooming are all equally painful and limited functionally. Pain: Pain Pain Level: 8 Pain Location: Shoulder - Left (anterior aspect) Description: Aching Frequency: Continuous Post Treatment Pain Post Treatment Pain Level: Worse Post Treatment Pain Location: Shoulder - Left Post Treatment Symptoms: During and after session, pt reported increased L shoulder pain PROMIS Scales Higher is Better 08/06/2022 09/09/2022 09/19/2022 Phys Func - Score - - 35 (moderate dysfunction) Phys Func - Percentile - - 7 % GH Physical - Score 47.7 (Good) 39.8 (Fair) - GH Physical - Percentile 41 % 15 % - GH Mental - Score 45.8 (Good) 45.8 (Good) - GH Mental - Percentile 34 % 34 % - Self-Eff Symptom - Score - - 36 (Low) Self-Eff Symptom - Percentile - - 8 % T-scores: mean of general population = 50. 5 points is clinically meaningfully difference Percentiles provide an indication of how the patient's score ranks in relation to the general population. Higher percentile rankings indicate better function/quality of life. 50th percentile is the average of the general population and indicates half of respondents had a worse score. T-scores: mean of general population = 50. 5 points is clinically meaningfully difference Percentiles provide an indication of how the patient's score ranks in relation to the general population. Higher percentile rankings indicate better function/quality of life. 50th percentile is the average of the general population and indicates half of respondents had a worse score. OBJECTIVE MEASURES WITH LEVEL OF FUNCTION: Shoulder Observations L Shoulder Palpation Tenderness: Bicipital groove (sub AC space, anterior aspect of L shoulder) UE AROM L UE AROM: seated (All AROM is painful) L Shoulder Extension: 56 Degrees L Shoulder Flex: 109 Degrees L Shoulder ABduction: 104 Degrees L Shoulder Internal Rotation (Functional): 17cm less than R reaching behind back L Shoulder External Rotation (Functional): 7cm less than R reaching behind head. UE and Cervical Strength L UE Strength: MMT deferred secondary to increased pain and severely limited AROM TREATMENT: Therapeutic Exercise: 1: SciFit StepOne seat #8 x5 minutes with no resistance and just a light warm up (Pt provided an update on his condition) 2: seated rope and rin for L shoulder flexion 2x10 (very painful, limited motion and a lot of popping) 3: seated rope and rin for L shoulder abduction 2x10 (very painful and limited ROM) 4: Re-assessment results were reviewed with patient in detail and used as a basis for d/c recommendation. After 2 months of PT and compliance with all recommendations, his L shoulder condition is the same or worse functionally. 5: Therapist spent a significant amount of time explaining the anatomy of L shoulder, his MRI findings, functional limitations and possible explanation of his symptoms. Shoulder models and pictures were used to clarify all education. 6: HEP was reviewed and he was encouraged to continue with HEP to tolerance. Skilled Intervention: Patient was educated in proper exercise technique and purpose for exercises. Skilled judgment was provided in selection of appropriate interventions. Correct performance of therapeutic exercises was facilitated with verbal and visual cuing. Patient education as noted. Billing Therapeutic Exercise Treatment Minutes: 45 Total Treatment Time Minutes (timed/untimed): 45 Tonny De Guzman PT documented in this encounter [facility] 11-05-2022 Note HNO ID: [id number] Author: Tonny De Guzman PT Service: ? Author Type: Physical Therapist Type: Progress Notes Filed: 11/05/2022 4:21 PM Note Text: Episode Visit Count: 9 Therapist That Will Accept/Oversee The Plan Of Care: Tonny De Guzman PT Start of Care Date: 09/20/22 Onset Date: 04/20/22 Patient Identified by Name and Date of : Yes REHABILITATION AND SPORTS THERAPY PHYSICAL THERAPY TREATMENT NOTE ASSESSMENT: Marian Koch tolerated the session with increased symptoms. He demonstrated difficulty with abduction AAROM. The patient will continue to benefit from ongoing skilled physical therapy to progress toward set goals. PLAN FOR NEXT VISIT: Review, correct and progress HEP to tolerance prn. Continue active and AAROM therex to address L shoulder pain, ROM and strength to enhance function. Light strengthening will also be appropriate. PT plan of care may be modified based on results of pt appointment with orthopedics. SUBJECTIVE: Patient Reason for Visit: Pt reports that his L shoulder is not any better. Pain: Pain Pain Level: 8 Pain Location: Shoulder - Left Description: Sharp, Aching Frequency: Continuous Post Treatment Pain Post Treatment Pain Level: Worse Post Treatment Pain Location: Shoulder - Left Post Treatment Symptoms: After session, pt reported that his L shoulder was slightly more painful and tired. OBJECTIVE MEASURES WITH LEVEL OF FUNCTION: Pt very limited with pulleys with shoulder flexion. TREATMENT: Therapeutic Exercise: 1: AVSTFit StepOne seat #8 x5 minutes with no resistance and just a light warm up (Pt provided an update on his condition) 2: seated rope and rin for L shoulder flexion 2x10 (very painful, limited motion and a lot of popping) 3: seated rope and rin for L shoulder abduction 2x10 4: Seated AAROM flexion with physioball 4x10 5: Seated AAROM scaption with physioball 4x10 6: Seated AAROM abduction with physioball 4x10 7: L UE bodyblade, arm at side, blade horizontal up and down 3x30 seconds 8: L UE bodyblade, elbow flexed 90 degrees blade vertical side to side 3x30 seconds. 9: L UE alphabet tracing A-Z x1 without weight 10: L UE 5 on the wall without weight 1-5 3x30 seconds 11: Seated L UT stretch 3x30 seconds Skilled Intervention: Patient was educated in proper exercise technique and purpose for exercises. Skilled judgment was provided in selection of appropriate interventions. Correct performance of therapeutic exercises was facilitated with verbal and visual cuing. Billing Therapeutic Exercise Treatment Minutes: 43 Total Treatment Time Minutes (timed/untimed): 43 Nasra Clairehali, INSTRUCTIONAL SUPERVISOR Tonny De Guzman PT [facility] 11-05-2022 History of Present illness Narrative Episode Visit Count: 9 Therapist That Will Accept/Oversee The Plan Of Care: Tonny De Guzman PT Start of Care Date: 09/20/22 Onset Date: 04/20/22 Patient Identified by Name and Date of : Yes REHABILITATION AND SPORTS THERAPY PHYSICAL THERAPY TREATMENT NOTE ASSESSMENT: Marian Koch tolerated the session with increased symptoms. He demonstrated difficulty with abduction AAROM. The patient will continue to benefit from ongoing skilled physical therapy to progress toward set goals. PLAN FOR NEXT VISIT: Review, correct and progress HEP to tolerance prn. Continue active and AAROM therex to address L shoulder pain, ROM and strength to enhance function. Light strengthening will also be appropriate. PT plan of care may be modified based on results of pt appointment with orthopedics. SUBJECTIVE: Patient Reason for Visit: Pt reports that his L shoulder is not any better. Pain: Pain Pain Level: 8 Pain Location: Shoulder - Left Description: Sharp, Aching Frequency: Continuous Post Treatment Pain Post Treatment Pain Level: Worse Post Treatment Pain Location: Shoulder - Left Post Treatment Symptoms: After session, pt reported that his L shoulder was slightly more painful and tired. OBJECTIVE MEASURES WITH LEVEL OF FUNCTION: Pt very limited with pulleys with shoulder flexion. TREATMENT: Therapeutic Exercise: 1: SciFit StepOne seat #8 x5 minutes with no resistance and just a light warm up (Pt provided an update on his condition) 2: seated rope and rin for L shoulder flexion 2x10 (very painful, limited motion and a lot of popping) 3: seated rope and rin for L shoulder abduction 2x10 4: Seated AAROM flexion with physioball 4x10 5: Seated AAROM scaption with physioball 4x10 6: Seated AAROM abduction with physioball 4x10 7: L UE bodyblade, arm at side, blade horizontal up and down 3x30 seconds 8: L UE bodyblade, elbow flexed 90 degrees blade vertical side to side 3x30 seconds. 9: L UE alphabet tracing A-Z x1 without weight 10: L UE 5 on the wall without weight 1-5 3x30 seconds 11: Seated L UT stretch 3x30 seconds Skilled Intervention: Patient was educated in proper exercise technique and purpose for exercises. Skilled judgment was provided in selection of appropriate interventions. Correct performance of therapeutic exercises was facilitated with verbal and visual cuing. Billing Therapeutic Exercise Treatment Minutes: 43 Total Treatment Time Minutes (timed/untimed): 43 JOSE MARIA Dyer PT documented in this encounter [facility] 10-31-2022 Note HNO ID: [id number] Author: Tonny De Guzman PT Service: ? Author Type: Physical Therapist Type: Progress Notes Filed: 10/31/2022 5:33 PM Note Text: Episode Visit Count: 8 Therapist That Will Accept/Oversee The Plan Of Care: Tonny De Guzman PT Start of Care Date: 09/20/22 Onset Date: 04/20/22 Patient Identified by Name and Date of : Yes REHABILITATION AND SPORTS THERAPY PHYSICAL THERAPY TREATMENT NOTE ASSESSMENT: Marian Koch tolerated the session with fatigue, increased symptoms, and expected muscle soreness. He demonstrated difficulty with continued pain and dysfunction in L shoulder. The patient will continue to benefit from ongoing skilled physical therapy to progress toward set goals. PLAN FOR NEXT VISIT: Review, correct and progress HEP to tolerance prn. Continue active and AAROM therex to address L shoulder pain, ROM and strength to enhance function. Light strengthening will also be appropriate. PT plan of care may be modified based on results of pt appointment with orthopedics. SUBJECTIVE: Patient Reason for Visit: Pt reports that overall his L shoulder is the same or possibly. He reports increased clicking and popping in L shoulder recently. He reports continued difficulty with reaching tasks away from his body such as driving and working. He reports increased pain today that he attributes to wrenching at work. He reports compliance with HEP 2x day. Pain: Pain Pain Level: 6 Pain Location: Shoulder - Left Frequency: Continuous Post Treatment Pain Post Treatment Pain Level: Worse (7-8/10) Post Treatment Pain Location: Shoulder - Left Post Treatment Symptoms: After session, pt reported that his L shoulder was slightly more painful and tired. OBJECTIVE MEASURES WITH LEVEL OF FUNCTION: TREATMENT: Therapeutic Exercise: 1: AVSTFit StepOne seat #8 x5 minutes with no resistance and just a light warm up (Pt provided an update on his condition) 2: seated rope and rin for L shoulder flexion 2x10 3: seated rope and rin for L shoulder abduction 2x10 4: Seated AAROM flexion with physioball 4x10 5: Seated AAROM scaption with physioball 4x10 6: Seated AAROM abduction with physioball 4x10 7: L UE bodyblade, arm at side, blade horizontal up and down 3x30 seconds 8: L UE bodyblade, elbow flexed 90 degrees blade vertical side to side 3x30 seconds. 9: L UE alphabet tracing A-Z x1 without weight 10: L UE 5 on the wall without weight 1-5 3x30 seconds Skilled Intervention: Patient was educated in proper exercise technique and purpose for exercises. Skilled judgment was provided in selection of appropriate interventions. Correct performance of therapeutic exercises was facilitated with verbal, visual, and tactile cuing. Patient education as noted. Billing Therapeutic Exercise Treatment Minutes: 43 Total Treatment Time Minutes (timed/untimed): 43 Tonny De Guzman PT [facility] 10-31-2022 History of Present illness Narrative Episode Visit Count: 8 Therapist That Will Accept/Oversee The Plan Of Care: Tonny De Guzman PT Start of Care Date: 09/20/22 Onset Date: 04/20/22 Patient Identified by Name and Date of : Yes REHABILITATION AND SPORTS THERAPY PHYSICAL THERAPY TREATMENT NOTE ASSESSMENT: Marian Koch tolerated the session with fatigue, increased symptoms, and expected muscle soreness. He demonstrated difficulty with continued pain and dysfunction in L shoulder. The patient will continue to benefit from ongoing skilled physical therapy to progress toward set goals. PLAN FOR NEXT VISIT: Review, correct and progress HEP to tolerance prn. Continue active and AAROM therex to address L shoulder pain, ROM and strength to enhance function. Light strengthening will also be appropriate. PT plan of care may be modified based on results of pt appointment with orthopedics. SUBJECTIVE: Patient Reason for Visit: Pt reports that overall his L shoulder is the same or possibly. He reports increased clicking and popping in L shoulder recently. He reports continued difficulty with reaching tasks away from his body such as driving and working. He reports increased pain today that he attributes to wrenching at work. He reports compliance with HEP 2x day. Pain: Pain Pain Level: 6 Pain Location: Shoulder - Left Frequency: Continuous Post Treatment Pain Post Treatment Pain Level: Worse (7-8/10) Post Treatment Pain Location: Shoulder - Left Post Treatment Symptoms: After session, pt reported that his L shoulder was slightly more painful and tired. OBJECTIVE MEASURES WITH LEVEL OF FUNCTION: TREATMENT: Therapeutic Exercise: 1: SciFit StepOne seat #8 x5 minutes with no resistance and just a light warm up (Pt provided an update on his condition) 2: seated rope and rin for L shoulder flexion 2x10 3: seated rope and rin for L shoulder abduction 2x10 4: Seated AAROM flexion with physioball 4x10 5: Seated AAROM scaption with physioball 4x10 6: Seated AAROM abduction with physioball 4x10 7: L UE bodyblade, arm at side, blade horizontal up and down 3x30 seconds 8: L UE bodyblade, elbow flexed 90 degrees blade vertical side to side 3x30 seconds. 9: L UE alphabet tracing A-Z x1 without weight 10: L UE 5 on the wall without weight 1-5 3x30 seconds Skilled Intervention: Patient was educated in proper exercise technique and purpose for exercises. Skilled judgment was provided in selection of appropriate interventions. Correct performance of therapeutic exercises was facilitated with verbal, visual, and tactile cuing. Patient education as noted. Billing Therapeutic Exercise Treatment Minutes: 43 Total Treatment Time Minutes (timed/untimed): 43 Tonny De Guzman PT documented in this encounter [facility] 10-24-2022 Note HNO ID: [id number] Author: Tonny De Guzman PT Service: ? Author Type: Physical Therapist Type: Progress Notes Filed: 10/24/2022 5:32 PM Note Text: Episode Visit Count: 7 Therapist That Will Accept/Oversee The Plan Of Care: Tonny De Guzman PT Start of Care Date: 09/20/22 Onset Date: 04/20/22 Patient Identified by Name and Date of : Yes REHABILITATION AND SPORTS THERAPY PHYSICAL THERAPY TREATMENT NOTE ASSESSMENT: Marian Koch tolerated the session with no issues. He demonstrated improvements in exercise tolerance and overall pain rating today. The patient will continue to benefit from ongoing skilled physical therapy to progress toward set goals. PLAN FOR NEXT VISIT: Review, correct and progress HEP to tolerance prn. Continue active and AAROM therex to address L shoulder pain, ROM and strength to enhance function. Light strengthening will also be appropriate. PT plan of care may be modified based on results of pt appointment with orthopedics. SUBJECTIVE: Patient Reason for Visit: Pt reports that overall he is feeling the same. He reports that movement and use of L UE causes increased pain but at rest today, pain is mild and 2/10. He reports compliance with HEP 2x day. Pain: Pain Pain Level: 2 Pain Location: Shoulder - Left Description: (mild) Frequency: Continuous Post Treatment Pain Post Treatment Pain Level: No Change OBJECTIVE MEASURES WITH LEVEL OF FUNCTION: TREATMENT: Therapeutic Exercise: 1: SciFit StepOne seat #8 x5 minutes with no resistance and just a light warm up (Pt provided an update on his condition) 2: seated rope and rin for L shoulder flexion 2x10 3: seated rope and rin for L shoulder abduction 2x10 4: Seated AAROM flexion with physioball 4x10 5: Seated AAROM scaption with physioball 4x10 6: Seated AAROM abduction with physioball 4x10 7: L UE bodyblade, arm at side, blade horizontal up and down 3x30 seconds 8: L UE bodyblade, elbow flexed 90 degrees blade vertical side to side 3x30 seconds. Skilled Intervention: Patient was educated in proper exercise technique and purpose for exercises. Skilled judgment was provided in selection of appropriate interventions. Correct performance of therapeutic exercises was facilitated with verbal, visual, and tactile cuing. Patient education as noted. Billing Therapeutic Exercise Treatment Minutes: 40 Total Treatment Time Minutes (timed/untimed): 40 Tonny De Guzman PT [facility] 10-24-2022 History of Present illness Narrative Episode Visit Count: 7 Therapist That Will Accept/Oversee The Plan Of Care: Tonny De Guzman PT Start of Care Date: 09/20/22 Onset Date: 04/20/22 Patient Identified by Name and Date of : Yes REHABILITATION AND SPORTS THERAPY PHYSICAL THERAPY TREATMENT NOTE ASSESSMENT: Marian Meet Gomezll tolerated the session with no issues. He demonstrated improvements in exercise tolerance and overall pain rating today. The patient will continue to benefit from ongoing skilled physical therapy to progress toward set goals. PLAN FOR NEXT VISIT: Review, correct and progress HEP to tolerance prn. Continue active and AAROM therex to address L shoulder pain, ROM and strength to enhance function. Light strengthening will also be appropriate. PT plan of care may be modified based on results of pt appointment with orthopedics. SUBJECTIVE: Patient Reason for Visit: Pt reports that overall he is feeling the same. He reports that movement and use of L UE causes increased pain but at rest today, pain is mild and 2/10. He reports compliance with HEP 2x day. Pain: Pain Pain Level: 2 Pain Location: Shoulder - Left Description: (mild) Frequency: Continuous Post Treatment Pain Post Treatment Pain Level: No Change OBJECTIVE MEASURES WITH LEVEL OF FUNCTION: TREATMENT: Therapeutic Exercise: 1: SciFit StepOne seat #8 x5 minutes with no resistance and just a light warm up (Pt provided an update on his condition) 2: seated rope and rin for L shoulder flexion 2x10 3: seated rope and rin for L shoulder abduction 2x10 4: Seated AAROM flexion with physioball 4x10 5: Seated AAROM scaption with physioball 4x10 6: Seated AAROM abduction with physioball 4x10 7: L UE bodyblade, arm at side, blade horizontal up and down 3x30 seconds 8: L UE bodyblade, elbow flexed 90 degrees blade vertical side to side 3x30 seconds. Skilled Intervention: Patient was educated in proper exercise technique and purpose for exercises. Skilled judgment was provided in selection of appropriate interventions. Correct performance of therapeutic exercises was facilitated with verbal, visual, and tactile cuing. Patient education as noted. Billing Therapeutic Exercise Treatment Minutes: 40 Total Treatment Time Minutes (timed/untimed): 40 Tonny De Guzman PT documented in this encounter [facility] 10-23-2022 Miscellaneous Notes Pt read mychart See [employer] message Please have him come in for recheck lab in 3 months and complete outstanding BMD. Telephone on 10/22/22 PTH INTACT BLD CALCIUM IONIZED BLOOD PHOSPHORUS INORGANIC CROSS-LINK N-TELO DONNY Thanks, Herman Tate PA-C documented in this encounter [facility] 10-22-2022 Note HNO ID: [id number] Author: Tonny De Guzman PT Service: ? Author Type: Physical Therapist Type: Progress Notes Filed: 10/22/2022 5:29 PM Note Text: Episode Visit Count: 6 Therapist That Will Accept/Oversee The Plan Of Care: Tonny De Guzman PT Start of Care Date: 09/20/22 Onset Date: 04/20/22 Patient Identified by Name and Date of : Yes REHABILITATION AND SPORTS THERAPY PHYSICAL THERAPY TREATMENT NOTE ASSESSMENT: Marian Koch tolerated the session with fatigue and expected muscle soreness. He demonstrated difficulty with abduction with rope and rin. The patient will continue to benefit from ongoing skilled physical therapy to progress toward set goals. PLAN FOR NEXT VISIT: Review, correct and progress HEP to tolerance prn. Continue active and AAROM therex to address L shoulder pain, ROM and strength to enhance function. Light strengthening will also be appropriate. PT plan of care may be modified based on results of pt appointment with orthopedics. SUBJECTIVE: Patient Reason for Visit: Pt reports that his shoulder is about the same, no real change to report. 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 Pain: Pain Pain Level: 7 Pain Location: Shoulder - Left Description: Aching;Throbbing Frequency: Continuous OBJECTIVE MEASURES WITH LEVEL OF FUNCTION: Pt able to complete seated AAROM of L shoulder with physioball without increase in pain. TREATMENT: Therapeutic Exercise: 1: SciFit StepOne seat #8 x5 minutes with no resistance and just a light warm up 2: seated rope and rin for L shoulder flexion 2x10 3: seated rope and rin for L shoulder abduction 2x10 4: Seated AAROM flexion with physioball 4x10 5: Seated AAROM scaption with physioball 4x10 6: Seated AAROM abduction with physioball 4x10 7: L shoulder pendulums 2x10 side to side, front to back, and circles to tolerance Skilled Intervention: Patient was educated in proper exercise technique and purpose for exercises. Skilled judgment was provided in selection of appropriate interventions. Correct performance of therapeutic exercises was facilitated with verbal and visual cuing. Billing Therapeutic Exercise Treatment Minutes: 40 Total Treatment Time Minutes (timed/untimed): 40 Nasra Gamble, INSTRUCTIONAL SUPERVISOR Tonny De Guzman, PT [facility] 10-22-2022 History of Present illness Narrative Episode Visit Count: 6 Therapist That Will Accept/Oversee The Plan Of Care: Tonny De Guzman PT Start of Care Date: 09/20/22 Onset Date: 04/20/22 Patient Identified by Name and Date of : Yes REHABILITATION AND SPORTS THERAPY PHYSICAL THERAPY TREATMENT NOTE ASSESSMENT: Marian Koch tolerated the session with fatigue and expected muscle soreness. He demonstrated difficulty with abduction with rope and rin. The patient will continue to benefit from ongoing skilled physical therapy to progress toward set goals. PLAN FOR NEXT VISIT: Review, correct and progress HEP to tolerance prn. Continue active and AAROM therex to address L shoulder pain, ROM and strength to enhance function. Light strengthening will also be appropriate. PT plan of care may be modified based on results of pt appointment with orthopedics. SUBJECTIVE: Patient Reason for Visit: Pt reports that his shoulder is about the same, no real change to report. 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 Pain: Pain Pain Level: 7 Pain Location: Shoulder - Left Description: Aching;Throbbing Frequency: Continuous OBJECTIVE MEASURES WITH LEVEL OF FUNCTION: Pt able to complete seated AAROM of L shoulder with physioball without increase in pain. TREATMENT: Therapeutic Exercise: 1: SciFit StepOne seat #8 x5 minutes with no resistance and just a light warm up 2: seated rope and rin for L shoulder flexion 2x10 3: seated rope and rin for L shoulder abduction 2x10 4: Seated AAROM flexion with physioball 4x10 5: Seated AAROM scaption with physioball 4x10 6: Seated AAROM abduction with physioball 4x10 7: L shoulder pendulums 2x10 side to side, front to back, and circles to tolerance Skilled Intervention: Patient was educated in proper exercise technique and purpose for exercises. Skilled judgment was provided in selection of appropriate interventions. Correct performance of therapeutic exercises was facilitated with verbal and visual cuing. Billing Therapeutic Exercise Treatment Minutes: 40 Total Treatment Time Minutes (timed/untimed): 40 Nasra Gamble, INSTRUCTIONAL SUPERVISOR Tonny De Guzman PT documented in this encounter [facility] 10-19-2022 Note HNO ID: [id number] Author: Tonny De Guzman PT Service: ? Author Type: Physical Therapist Type: Progress Notes Filed: 10/21/2022 11:24 PM Note Text: Episode Visit Count: 5 Therapist That Will Accept/Oversee The Plan Of Care: Tonny De Guzman PT Start of Care Date: 09/20/22 Onset Date: 04/20/22 Patient Identified by Name and Date of : Yes REHABILITATION AND SPORTS THERAPY PHYSICAL THERAPY TREATMENT NOTE ASSESSMENT: Marian Koch tolerated the session with fatigue and expected muscle soreness. He demonstrated difficulty with shoulder pulleys, modification made with palm facing inward helped to ease catching sensation. The patient will continue to benefit from ongoing skilled physical therapy to progress toward set goals. PLAN FOR NEXT VISIT: Review, correct and progress HEP to tolerance prn. Continue active and AAROM therex to address L shoulder pain, ROM and strength to enhance function. Light strengthening will also be appropriate. PT plan of care may be modified based on results of pt appointment with orthopedics. SUBJECTIVE: Patient Reason for Visit: Pt states that his shoulder is still bothering him. Pt states that pain is waking him up at night . Pt reports stopping isometrics since last session due to pain. Pain: Pain Pain Level: 7 Pain Location: Shoulder - Left Description: Aching;Throbbing Frequency: Continuous Post Treatment Pain Post Treatment Pain Level: No Change OBJECTIVE MEASURES WITH LEVEL OF FUNCTION: Good technique with pendulums this visit TREATMENT: Therapeutic Exercise: 1: SciFit StepOne seat #8 x5 minutes with no resistance and just a light warm up 2: seated rope and rin for L shoulder flexion 2x10 3: seated rope and rin for L shoulder abduction 2x10 6: L shoulder pendulums 2x10 side to side, front to back, and circles to tolerance Skilled Intervention: Patient was educated in proper exercise technique and purpose for exercises. Skilled judgment was provided in selection of appropriate interventions. Correct performance of therapeutic exercises was facilitated with verbal and visual cuing. Billing Therapeutic Exercise Treatment Minutes: 30 Total Treatment Time Minutes (timed/untimed): 30 Nasra Gamble, INSTRUCTIONAL SUPERVISOR Tonny De Guzman, PT [facility] 10-19-2022 History of Present illness Narrative Episode Visit Count: 5 Therapist That Will Accept/Oversee The Plan Of Care: Tonny De Guzman PT Start of Care Date: 09/20/22 Onset Date: 04/20/22 Patient Identified by Name and Date of : Yes REHABILITATION AND SPORTS THERAPY PHYSICAL THERAPY TREATMENT NOTE ASSESSMENT: Marian Koch tolerated the session with fatigue and expected muscle soreness. He demonstrated difficulty with shoulder pulleys, modification made with palm facing inward helped to ease catching sensation. The patient will continue to benefit from ongoing skilled physical therapy to progress toward set goals. PLAN FOR NEXT VISIT: Review, correct and progress HEP to tolerance prn. Continue active and AAROM therex to address L shoulder pain, ROM and strength to enhance function. Light strengthening will also be appropriate. PT plan of care may be modified based on results of pt appointment with orthopedics. SUBJECTIVE: Patient Reason for Visit: Pt states that his shoulder is still bothering him. Pt states that pain is waking him up at night . Pt reports stopping isometrics since last session due to pain. Pain: Pain Pain Level: 7 Pain Location: Shoulder - Left Description: Aching;Throbbing Frequency: Continuous Post Treatment Pain Post Treatment Pain Level: No Change OBJECTIVE MEASURES WITH LEVEL OF FUNCTION: Good technique with pendulums this visit TREATMENT: Therapeutic Exercise: 1: SciFit StepOne seat #8 x5 minutes with no resistance and just a light warm up 2: seated rope and rin for L shoulder flexion 2x10 3: seated rope and rin for L shoulder abduction 2x10 6: L shoulder pendulums 2x10 side to side, front to back, and circles to tolerance Skilled Intervention: Patient was educated in proper exercise technique and purpose for exercises. Skilled judgment was provided in selection of appropriate interventions. Correct performance of therapeutic exercises was facilitated with verbal and visual cuing. Billing Therapeutic Exercise Treatment Minutes: 30 Total Treatment Time Minutes (timed/untimed): 30 Nasra Gamble, JOSE MARIA De Guzman PT documented in this encounter [facility] 10-17-2022 Note HNO ID: [id number] Author: Tonny De Guzman PT Service: ? Author Type: Physical Therapist Type: Progress Notes Filed: 10/17/2022 7:52 PM Note Text: Episode Visit Count: 4 Therapist That Will Accept/Oversee The Plan Of Care: Tonny De Guzman PT Start of Care Date: 09/20/22 Onset Date: 04/20/22 Patient Identified by Name and Date of : Yes REHABILITATION AND SPORTS THERAPY PHYSICAL THERAPY PROGRESS REPORT PLAN OF CARE UPDATE: Assessment: Marian Koch demonstrates difficulty with sleeping, reaching behind back, reaching overhead, use hand with arm at shoulder level, dressing, and grooming. He has made minimal progress. Patient continues to present with impairments in ADL's, independence in exercise, overall function, range of motion, strength , and symptom management that interfere with sleeping;grooming;dressing;reachin g behind back;reaching overhead . Current prognosis is Fair due to: clinical presentation;chronic nature of impairments;limited tolerance to activity;poor past response to therapy intervention. He will benefit from continued skilled therapy services to meet the updated goals for this plan of care as noted below. Updated: 10/17/22 Goals for Episode of Care: created on 09/20/22 through 11/01/22 [place] in home exercise program. - Partially Met, will continue Patient will decrease pain to 0-2/10 at rest and with functional activities to allow patient to improve sleeping, dressing and grooming. - Not Met, will continue Patient will increase active ROM of L shoulder to WFL, symmetrical and pain-free to allow pt to to improve performance of ADLs. - Not Met, will continue Perform sleeping, dressing, grooming and all reaching with L UE with decreased report of symptoms/pain in 6 weeks. - Not Met, will continue Increased strength of L shoulder to symmetrical with dynamometer for improved completion of ADLs - Not Met, will continue Patient Goals: decrease pain - Not Met, will continue Patient Goals: decrease pain Planned Interventions, Frequency, and Duration: 2x/week, 4 weeks Total Number of Visits Planned: 8 Patient to be seen for Therapeutic exercise ([id number]);Manual therapy ([id number]);Self-fdc management ([id number]);Patient/Family/Caregiver Education;Body Mechanics Training PLAN FOR NEXT VISIT: Review, correct and progress HEP to tolerance prn. Continue active and AAROM therex to address L shoulder pain, ROM and strength to enhance function. Light strengthening will also be appropriate. PT plan of care may be modified based on results of pt appointment with orthopedics. SUBJECTIVE: Patient Reason for Visit: Pt continues to report dramatic improvements following the last injection but that this only lasted for 4 days and pain returned. Currently he reports that his pain is increased in L shoulder and this severely limits his functional ability with L UE. He reports compliance with HEP but that wand exercises aggravate his shoulder because it is difficult to relax. He also now reports symptoms in L axilla, posterior L shoulder and also down into L forearm and wrist. Patient Goals: decrease pain Functional Limitations: sleeping;grooming;dressing;reachin g behind back;reaching overhead Pain: Pain Pain Level: 7 Pain Location: Shoulder - Left (anterior aspect) Description: Aching;Throbbing Frequency: Continuous Post Treatment Pain Post Treatment Pain Level: No Change PROMIS Scales Higher is Better 08/06/2022 09/09/2022 09/19/2022 Phys Func - Score - - 35 (moderate dysfunction) Phys Func - Percentile - - 7 % GH Physical - Score 47.7 (Good) 39.8 (Fair) - GH Physical - Percentile 41 % 15 % - GH Mental - Score 45.8 (Good) 45.8 (Good) - GH Mental - Percentile 34 % 34 % - Self-Eff Symptom - Score - - 36 (Low) Self-Eff Symptom - Percentile - - 8 % T-scores: mean of general population = 50. 5 points is clinically meaningfully difference Percentiles provide an indication of how the patient's score ranks in relation to the general population. Higher percentile rankings indicate better function/quality of life. 50th percentile is the average of the general population and indicates half of respondents had a worse score. T-scores: mean of general population = 50. 5 points is clinically meaningfully difference Percentiles provide an indication of how the patient's score ranks in relation to the general population. Higher percentile rankings indicate better function/quality of life. 50th percentile is the average of the general population and indicates half of respondents had a worse score. OBJECTIVE MEASURES WITH LEVEL OF FUNCTION: UE AROM L UE AROM: seated L Shoulder Extension: 44 Degrees L Shoulder Flex: 92 Degrees L Shoulder ABduction: 98 Degrees L Shoulder Internal Rotation (Functional): 20cm less than R reaching behind back L Shoulder External Rotation (Functional): 7cm less than R reaching behind head UE and Cervica (more content not included)... [facility] 10-17-2022 History of Present illness Narrative Episode Visit Count: 4 Therapist That Will Accept/Oversee The Plan Of Care: Tonny De Guzman PT Start of Care Date: 09/20/22 Onset Date: 04/20/22 Patient Identified by Name and Date of : Yes REHABILITATION AND SPORTS THERAPY PHYSICAL THERAPY PROGRESS REPORT PLAN OF CARE UPDATE: Assessment: Marian Koch demonstrates difficulty with sleeping, reaching behind back, reaching overhead, use hand with arm at shoulder level, dressing, and grooming. He has made minimal progress. Patient continues to present with impairments in ADL's, independence in exercise, overall function, range of motion, strength , and symptom management that interfere with sleeping;grooming;dressing;reachin g behind back;reaching overhead . Current prognosis is Fair due to: clinical presentation;chronic nature of impairments;limited tolerance to activity;poor past response to therapy intervention. He will benefit from continued skilled therapy services to meet the updated goals for this plan of care as noted below. Updated: 10/17/22 Goals for Episode of Care: created on 09/20/22 through 11/01/22 [place] in home exercise program. - Partially Met, will continue Patient will decrease pain to 0-2/10 at rest and with functional activities to allow patient to improve sleeping, dressing and grooming. - Not Met, will continue Patient will increase active ROM of L shoulder to WFL, symmetrical and pain-free to allow pt to to improve performance of ADLs. - Not Met, will continue Perform sleeping, dressing, grooming and all reaching with L UE with decreased report of symptoms/pain in 6 weeks. - Not Met, will continue Increased strength of L shoulder to symmetrical with dynamometer for improved completion of ADLs - Not Met, will continue Patient Goals: decrease pain - Not Met, will continue Patient Goals: decrease pain Planned Interventions, Frequency, and Duration: 2x/week, 4 weeks Total Number of Visits Planned: 8 Patient to be seen for Therapeutic exercise ([id number]);Manual therapy ([id number]);Self-fdc management ([id number]);Patient/Family/Caregiver Education;Body Mechanics Training PLAN FOR NEXT VISIT: Review, correct and progress HEP to tolerance prn. Continue active and AAROM therex to address L shoulder pain, ROM and strength to enhance function. Light strengthening will also be appropriate. PT plan of care may be modified based on results of pt appointment with orthopedics. SUBJECTIVE: Patient Reason for Visit: Pt continues to report dramatic improvements following the last injection but that this only lasted for 4 days and pain returned. Currently he reports that his pain is increased in L shoulder and this severely limits his functional ability with L UE. He reports compliance with HEP but that wand exercises aggravate his shoulder because it is difficult to relax. He also now reports symptoms in L axilla, posterior L shoulder and also down into L forearm and wrist. Patient Goals: decrease pain Functional Limitations: sleeping;grooming;dressing;reachin g behind back;reaching overhead Pain: Pain Pain Level: 7 Pain Location: Shoulder - Left (anterior aspect) Description: Aching;Throbbing Frequency: Continuous Post Treatment Pain Post Treatment Pain Level: No Change PROMIS Scales Higher is Better 08/06/2022 09/09/2022 09/19/2022 Phys Func - Score - - 35 (moderate dysfunction) Phys Func - Percentile - - 7 % GH Physical - Score 47.7 (Good) 39.8 (Fair) - GH Physical - Percentile 41 % 15 % - GH Mental - Score 45.8 (Good) 45.8 (Good) - GH Mental - Percentile 34 % 34 % - Self-Eff Symptom - Score - - 36 (Low) Self-Eff Symptom - Percentile - - 8 % T-scores: mean of general population = 50. 5 points is clinically meaningfully difference Percentiles provide an indication of how the patient's score ranks in relation to the general population. Higher percentile rankings indicate better function/quality of life. 50th percentile is the average of the general population and indicates half of respondents had a worse score. T-scores: mean of general population = 50. 5 points is clinically meaningfully difference Percentiles provide an indication of how the patient's score ranks in relation to the general population. Higher percentile rankings indicate better function/quality of life. 50th percentile is the average of the general population and indicates half of respondents had a worse score. OBJECTIVE MEASURES WITH LEVEL OF FUNCTION: UE AROM L UE AROM: seated L Shoulder Extension: 44 Degrees L Shoulder Flex: 92 Degrees L Shoulder ABduction: 98 Degrees L Shoulder Internal Rotation (Functional): 20cm less than R reaching behind back L Shoulder External Rotation (Functional): 7cm less than R reaching behind head UE and Cervical Strength Strength Tested: Shoulder Dynamometer Testing Dynamometer Strength L Shoulder Standing Scaption (lbs): 10.8 ft/lbs L Shoulder Standing Abduction (lbs): 10.9 ft/lbs L Shoulder Standing External Rotation (lbs): 12.6 ft/lbs L Shoulder Standing Internal Rotation (lbs): 14 ft/lbs L IR:ER Ratio (%): 111.11 TREATMENT: Therapeutic Exercise: 1: SciFit StepOne seat #8 x5 minutes with no resistance and just a light warm up 2: seated rope and rin for L shoulder flexion 2x10 3: *seated rope and rin for L shoulder abduction 2x10 4: wand exercises reviewed and pt was advised to stop this exercise at home since it causes pain. 5: isometric shoulder exercises reviewed and continuation encouraged to tolerance. 6: *L shoulder pendulums 2x10 side to side, front to back, and circles to tolerance 7: re-assessment results were reviewed with patient in detail and this information was used as rationale for recommended treatment plan. He was encouraged to schedule a follow up with Dr. Baldwin the week of 11/05/22. A model of the shoulder was used to educate patient on his MRI findings and rationale for PT recommendations. Skilled Intervention: Patient was educated in proper exercise technique and purpose for exercises. Reviewed and educated patient on additions/changes for home exercise program as above (*). Skilled judgment was provided in selection of appropriate interventions. Provided written instruction for home exercise program to facilitate proper performance and compliance. Correct performance of therapeutic exercises was facilitated with verbal, visual, and tactile cuing. Patient education as noted. Billing Therapeutic Exercise Treatment Minutes: 40 Total Treatment Time Minutes (timed/untimed): 40 Tonny De Guzman PT documented in this encounter [facility] 10-09-2022 History of Present illness Narrative Episode Visit Count: 3 Therapist That Will Accept/Oversee The Plan Of Care: Tonny De Guzman PT Start of Care Date: 09/20/22 Onset Date: 04/20/22 Patient Identified by Name and Date of : Yes REHABILITATION AND SPORTS THERAPY PHYSICAL THERAPY TREATMENT NOTE ASSESSMENT: Marian Koch tolerated the session with increased symptoms. He demonstrated difficulty with AROM and AAROM. The patient will continue to benefit from ongoing skilled physical therapy to progress toward set goals. PLAN FOR NEXT VISIT: Review, correct and progress HEP to tolerance prn. Begin active and AAROM therex to address L shoulder pain, ROM and strength to enhance function. Light strengthening will also be appropriate. PT plan of care may be modified based on results of pt appointment with orthopedics. SUBJECTIVE: Patient Reason for Visit: Pt reports that his shoulder has been bothering him. Pt states that his shoulder has not been good since after last therapy session. Pt states that he can't sleep at night again due to the pain. pt states that he can't reach up as high or out as far, pt feels that he is more restrcited with his motion. Pain: Pain Pain Level: 7 Pain Location: Upper Arm - Left Description: Aching;Throbbing Post Treatment Pain Post Treatment Pain Level: Worse OBJECTIVE MEASURES WITH LEVEL OF FUNCTION: UE AROM L Shoulder Flex: 122 Degrees L Shoulder ABduction: 98 Degrees TREATMENT: Therapeutic Exercise: 1: scapular retractions 3x10 2: standing wand AAROM for L shoulder flexion 2x10 (pain in triceps region and over deltoid) 3: standing wand AAROM for L shoulder abduction 2x10 (pain in subscapularis region) 4: *Pulleys for forward elevation 2x10 with elbow bent (discomfort in biceps) Skilled Intervention: Patient was educated in proper exercise technique and purpose for exercises. Reviewed and educated patient on additions/changes for home exercise program as above (*). Skilled judgment was provided in selection of appropriate interventions. Correct performance of therapeutic exercises was facilitated with verbal and visual cuing. Additional time necessary for resting shoulder due to pain and fatigue. Self-Skilled Nursing Management: 1: *Education in use of towel roll under shoulder blade with sleeping to decrease pulling sensation in anterior shoulder 2: * Education in importance of completing HEP and trying to maintain L shoulder ROM with use of pulleys or wand in pain-free range if AROM is too painful Skilled Intervention: Skilled judgment in the selection of proper modification for activity of daily living/home management based on clinical presentation, deficits, and needs. Activity progression based on professional judgement. Billing Therapeutic Exercise Treatment Minutes: 30 Self-Care/Home Management Treatment Minutes: 8 Total Treatment Time Minutes (timed/untimed): 38 JOSE MARIA Dyer PT documented in this encounter [facility] 09-26-2022 History of Present illness Narrative Episode Visit Count: 2 Therapist That Will Accept/Oversee The Plan Of Care: Tonny De Guzman PT Start of Care Date: 09/20/22 Onset Date: 04/20/22 Patient Identified by Name and Date of : Yes REHABILITATION AND SPORTS THERAPY PHYSICAL THERAPY TREATMENT NOTE ASSESSMENT: Marian Koch tolerated the session with fatigue and expected muscle soreness. He demonstrated improvements in AROM of L shoulder. The patient will continue to benefit from ongoing skilled physical therapy to progress toward set goals. PLAN FOR NEXT VISIT: Review, correct and progress HEP to tolerance prn. Begin active and AAROM therex to address L shoulder pain, ROM and strength to enhance function. Light strengthening will also be appropriate. PT plan of care may be modified based on results of pt appointment with orthopedics. SUBJECTIVE: Patient Reason for Visit: Pt reports seeing Dr. Baldwin and he was given another injection in his L shoulder, it has eased the pain. Pt also reports that depending on how long it lasts, he may also have to have an injection via doppler into the muscle of his shoulder. Pain: Pain Pain Level: 0 Pain Location: Upper Arm - Left Description: (discomfort in subscapularis region) Post Treatment Pain Post Treatment Symptoms: After session, pt stated his arm was fatigued OBJECTIVE MEASURES WITH LEVEL OF FUNCTION: UE AROM L Shoulder Flex: 143 Degrees L Shoulder ABduction: 167 Degrees TREATMENT: Therapeutic Exercise: 1: Standing scapular stabilization ball on wall 2x10 CW, CCw, M-L, and S-I 2: standing wand AAROM for L shoulder flexion 2x10 3: standing wand AAROM for L shoulder abduction 2x10 4: Standing AROM shoulder flexion 1x10 5: Standing AROM shoulder scaption 1x10 6: Standing AROM abduction 1x10 7: *Scapular isometrics 4 way 1x5 with 5 second holds. Skilled Intervention: Patient was educated in proper exercise technique and purpose for exercises. Reviewed and educated patient on additions/changes for home exercise program as above (*). Skilled judgment was provided in selection of appropriate interventions. Provided written instruction for home exercise program to facilitate proper performance and compliance. Correct performance of therapeutic exercises was facilitated with verbal and visual cuing. Additional time necessary for rest breaks in between exercises due to fatigue. Billing Therapeutic Exercise Treatment Minutes: 45 Total Treatment Time Minutes (timed/untimed): 45 Nasra Gamble, JOSE MARIA De Guzman PT documented in this encounter [facility] 09-24-2022 History of Present illness Narrative Associated Order(s): Large Joint Arthro/Inj: L subacromial bursa Post-Procedure Diagnose(s): Chronic left shoulder pain Maynor Baldwin MD Department of Orthopaedics Orthopaedics [address] [place] [address] Dept: [phone] Dept September 24, 2022 CHIEF COMPLAINT: Established Patient of the Left Shoulder and 15 weeks 4 days post visit Left shoulder pain (with injection given - wants injection ) HPI Patient states injection helped for about a month. Wants to discuss having another injection. Taking Tylenol for the pain and does not help. AMB ROOMING INTAKE FLOWSHEET DATA Risk Screening Do you have concerns about personal safety or safety in the home?: No Pain Pain Level: 8 Pain Location: Shoulder-Left Description: Aching, Sharp Duration Amount of Time: (Ongoing) Frequency: Continuous Intervention/Comfort measure: Medication ASSESSMENT: M25.512, G89.29 Chronic left shoulder pain (primary encounter diagnosis) M25.512 Acute pain of left shoulder PLAN: He would like a repeat injection today. Mr. Marian Koch was advised as to contrast therapies and/or to take analgesics/anti-inflammatories as needed and all contraindications were reviewed. OBJECTIVE: Mr. Marian Koch is a pleasant 52 year old in no apparent distress. Gen:There were no vitals taken for this visit. Large Joint Arthro/Inj: L subacromial bursa Informed Consent Consent Obtained: Verbal [place] Protocol A moment to CARE was completed. SIGN IN Sign in communication not applicable due to emergent procedure. Personnel directly involved with the procedure wore the appropriate PPE. Special Equipment: N/A Patient/Surrogate Stated/Verified: Patient name, Date of , Relevant allergies and Intended procedure TIME OUT Intended patient and procedure match the source document(s). Consent documented and matches the intended procedure. Relevant labs, photos, and/or imaging studies have been reviewed. Correct side/site marked and visible. Medications required for procedure verified. No fire risk assessment and interventions applicable. No implant(s) inserted. 09/24/2022 3:36 PM The procedure site was prepped in the usual sterile fashion. Site: L subacromial bursa Medications: 6 mg betamethasone acetate-betamethasone sodium phosphate 6 mg/mL Anesthetics: 4 mL lidocaine (PF) 10 mg/mL (1 %) Outcome: Tolerated well, no immediate complications Post-injection instructions were reviewed with the patient and the patient voiced understanding of these instructions. SIGN OUT No specimen collected. No instruments, equipment or retained foreign bodies applicable. Post-procedure follow-up management communicated and Plan of Care Visit completed when applicable Supporting Subjective Information Below: Past Surgical History: PAST SURGICAL HISTORY Procedure Laterality Date CABG (4) VEIN GRAFTS & ARTERIAL GRAFT(S) 2004 COLONOSCOPY FLX DX W/COLLJ SPEC WHEN PFRMD 06/14/[address] Dodge PERICARDIAL WINDOW, DRAINAGE 1991 RENAL ALLOTRANSPLANTATION W/ GRAFT W/O RECIPIENT NEPHRECTOMY 1993, repeat 2019. Medications: Current Outpatient Medications Medication Sig alendronate (FOSAMAX) 70 mg tablet Take 1 tablet by mouth one time a week. Take with a full glass of water, on an empty stomach; do NOT lie down for 30minutes. atorvastatin (LIPITOR) 80 mg tablet Take 1 tablet by mouth daily at bedtime. albuterol HFA (PROVENTIL HFA, VENTOLIN HFA) 90 mcg/actuation inhaler INHALE 2 PUFFS BY MOUTH EVERY 6 HOURS NEEDED DIRECTED cyclobenzaprine (FLEXERIL) 10 mg tablet Take 1 tablet by mouth three times daily as needed for muscle spasm. CARDURA XL 8 mg 24 hr tablet TAKE 1 TABLET BY MOUTH EVERY DAY WITH BREAKFAST albuterol HFA (PROAIR HFA) 90 mcg/actuation inhaler Inhale 2 Puffs as instructed every 6 hours as needed. predniSONE (DELTASONE) 5 mg tablet Take 1 tablet by mouth once daily. umeclidinium-vilanterol (ANORO ELLIPTA) 62.5-25 mcg/actuation inhaler INHALE 1 INHALATION INSTRUCTED ONCE DAILY. albuterol (PROVENTIL) 2.5 mg /3 mL (0.083 %) nebulizer solution Use 3 mL via nebulizer every 4 hours as needed for Wheezing/Shortness of Breath. Use over 5-15minutes. ASTAGRAF XL 0.5 mg capsule Take 2 mg by mouth once daily. DULoxetine (CYMBALTA) 30 mg capsule Take 1 capsule by mouth once daily. amLODIPine (NORVASC) 5 mg tablet Take 5 mg by mouth once daily. carvedilol (COREG) 25 mg tablet Take 1 tablet by mouth twice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 ([facility]) 12/08/2017 Secondary to renal failure. On Sensipar in remote past. Kidney dialysis 1988, and 2000 Neurogenic bladder VIC (obstructive sleep apnea) 08/04/2011 declines CPAP Pulmonary embolism ([facility]) 10-12 years ago Pulmonary nodules Foreign body reaction in pulmonary vasculature, ? cause. Extensive evaluation ruled out vasculitis, fungal inffection, pneumoconiosis. May have been from gortex graft .Resulted in multiple pulmonary nodules. Radiculopathy, lumbar region 11/28/2016 Renal failure 02/20/2010 Renal failure, chronic, stage 3 (moderate) ([facility]) folllowing renal transplant Renal stones Steroid long-term use Transplant kidney 1993 and 2009 Failed in 2000(right in ', removed in ; left ') Current Outpatient Medications Medication Sig Dispense Refill predniSONE (DELTASONE) 20 mg tablet Take 2 tablets by mouth once daily for 5 days. 10 tablet 0 benzonatate (TESSALON PERLES) 100 mg capsule Take 2 capsules by mouth three times daily as needed. 30 capsule 0 doxycycline (VIBRA-TABS) 100 mg tablet Take 1 tablet by mouth twice daily for 7 days. 14 tablet 0 albuterol HFA (PROAIR HFA) 90 mcg/actuation inhaler Inhale 2 Puffs as instructed every 6 hours as needed. 1 Each 0 predniSONE (DELTASONE) 10 mg tablet Take 4 tabs daily for 3 days, then 2 tabs daily for 3 days, then 1 tab daily for 3 days with food. (Patient not taking: Reported on 05/21/2022) 21 tablet 0 cyclobenzaprine (FLEXERIL) 10 mg tablet Take 1 tablet by mouth three times daily as needed for muscle spasm. 21 tablet 0 CARDURA XL 8 mg 24 hr tablet TAKE 1 TABLET BY MOUTH EVERY DAY WITH BREAKFAST 90 tablet 3 albuterol HFA (PROAIR HFA) 90 mcg/actuation inhaler Inhale 2 Puffs as instructed every 6 hours as needed. 18 g 2 predniSONE (DELTASONE) 5 mg tablet Take 1 tablet by mouth once daily. umeclidinium-vilanterol (ANORO ELLIPTA) 62.5-25 mcg/actuation inhaler INHALE 1 INHALATION INSTRUCTED ONCE DAILY. 1 Each 11 albuterol (PROVENTIL) 2.5 mg /3 mL (0.083 %) nebulizer solution Use 3 mL via nebulizer every 4 hours as needed for Wheezing/Shortness of Breath. Use over 5-15minutes. 1 Package 2 gabapentin (NEURONTIN) 300 mg capsule Take 2 capsules by mouth three times daily for 180 days. 180 capsule 1 ASTAGRAF XL 0.5 mg capsule Take 1 mg by mouth once daily. 11 alendronate (FOSAMAX) 70 mg tablet Take 1 tablet by mouth once each week. Take with a full glass of water, on an empty stomach; do NOT lie down for 30minutes. (Patient not taking: No sig reported) 12 tablet 3 DULoxetine (CYMBALTA) 30 mg capsule Take 1 capsule by mouth once daily. 90 capsule 1 amLODIPine (NORVASC) 5 mg tablet Take 5 mg by mouth once daily. atorvastatin (LIPITOR) 80 mg tablet Take 80 mg by mouth daily at bedtime. carvedilol (COREG) 25 mg tablet Take 1 tablet by mouth twice daily with meals. 3 omeprazole (PRILOSEC) 20 mg capsule Take 20 mg by mouth once daily. acetaminophen (TYLENOL) 500 mg tablet Take 500 mg by mouth every 8 hours as needed. mycophenolate mofetil (CELLCEPT) 250 mg capsule Take 500 mg by mouth twice daily. 0 magnesium oxide 400 mg cap Take 1 capsule by mouth twice daily. 0 sulfamethoxazole-trimethoprim (BACTRIM,SEPTRA) 400-80 mg per tablet Take 1 tablet by mouth once daily. 0 ASPIRIN 81 MG TAB Take one(1) tablet daily. 0 0 No current facility-administered medications for this visit. PAST SURGICAL HISTORY Procedure Laterality Date CABG (4) VEIN GRAFTS & ARTERIAL GRAFT(S) 2004 COLONOSCOPY FLX DX W/COLLJ SPEC WHEN PFRMD 06/14/[address] Dodge PERICARDIAL WINDOW, DRAINAGE 1991 RENAL ALLOTRANSPLANTATION W/ GRAFT W/O RECIPIENT NEPHRECTOMY 1993, repeat 2019. FAMILY HISTORY Problem Relation Age of Onset Arthritis Father Cancer Father Lung, 1990. Heart Father Heart Mother 2012. Social History Tobacco Use Smoking status: Former Packs/day: 1.25 Years: 15.00 Pack years: 18.75 Types: Cigarettes Quit date: 09/06/2011 Years since quittin.8 Smokeless tobacco: Current Types: Chew Vaping Use Vaping Use: Never used Substance Use Topics Alcohol use: No Drug use: No Objective BP 100/78 Pulse 78 Temp 36.8 C (98.2 F) Resp 22 Wt 64 kg (141 lb) SpO2 95% BMI 23.46 kg/m Physical Exam Vitals reviewed. Constitutional: Appearance: Normal appearance. HENT: Head: Normocephalic and atraumatic. Right Ear: Tympanic membrane, ear canal and external ear normal. Left Ear: Tympanic membrane, ear canal and external ear normal. Nose: Congestion present. Mouth/Throat: Mouth: Mucous membranes are moist. Pharynx: Oropharynx is clear. Cardiovascular: Rate and Rhythm: Normal rate and regular rhythm. Heart sounds: Normal heart sounds. Pulmonary: Effort: Pulmonary effort is normal. Breath sounds: Normal breath sounds. Musculoskeletal: Cervical back: Neck supple. Lymphadenopathy: Cervical: No cervical adenopathy. Skin: General: Skin is warm and dry. Neurological: Mental Status: He is alert. Assessment and Plan ASSESSMENT/PLAN: 1. Bronchitis - ICD9: 490, ICD10: J40 Given prednisone, tessalon and albuterol mdi. If not improving or spike fever can fill doxycycline but is likely viral at this point. Covid testing pending. Red flags for er care discussed. Patient agreeable. - COVID WITH FLUA+B, ROUTINE Marisela R Tremayne, ROBBIN documented in this encounter [facility] 06-07-2022 History of Present illness Narrative Associated Order(s): Large Joint Arthro/Inj: L subacromial bursa Post-Procedure Diagnose(s): Acute pain of left shoulder; Impingement syndrome of left shoulder Maynor Baldwin MD Department of Orthopaedics Orthopaedics [address] [facility] [address] Dept: [phone] Dept June 07, 2022 CHIEF COMPLAINT: Established Patient and Results - Mri of the Left Shoulder HPI Patient here today to discuss MRI results left shoulder. ASSESSMENT: M25.512 Acute pain of left shoulder (primary encounter diagnosis) M75.42 Impingement syndrome of left shoulder PLAN: We reviewed his MRI. He would like to try cortisone injection at this time. Mr. Marian Koch was advised as to contrast therapies and/or to take analgesics/anti-inflammatories as needed and all contraindications were reviewed. OBJECTIVE: Mr. Marian Koch is a pleasant 52 year old in no apparent distress. Gen:There were no vitals taken for this visit. nl development, non obese, no deformities ENT: Normocephalic, normal hearing, moist mucosa CV: Pulses:Radial= 2+ and symmetric, capillary refill < 2 secs, no peripheral edema/varicosities Skin: no rash, bruising or lesions. Good turgor. Psych: cooperative and appropriate, alert and oriented x 3, good mood and affect. Musculoskeletal: Stable exam Large Joint Arthro/Inj: L subacromial bursa Informed Consent Consent Obtained: Verbal [place] Protocol A moment to CARE was completed. SIGN IN Sign in communication not applicable due to emergent procedure. Personnel directly involved with the procedure wore the appropriate PPE. Special Equipment: N/A Patient/Surrogate Stated/Verified: Patient name, Date of , Relevant allergies and Intended procedure TIME OUT Intended patient and procedure match the source document(s). Consent documented and matches the intended procedure. Relevant labs, photos, and/or imaging studies have been reviewed. Correct side/site marked and visible. Medications required for procedure verified. No fire risk assessment and interventions applicable. No implant(s) inserted. 06/07/2022 4:33 PM The procedure site was prepped in the usual sterile fashion. Site: L subacromial bursa Medications: 6 mg betamethasone acetate-betamethasone sodium phosphate 6 mg/mL Anesthetics: 4 mL lidocaine (PF) 10 mg/mL (1 %) Outcome: Tolerated well, no immediate complications Post-injection instructions were reviewed with the patient and the patient voiced understanding of these instructions. SIGN OUT No specimen collected. No instruments, equipment or retained foreign bodies applicable. Post-procedure follow-up management communicated and Plan of Care Visit completed when applicable Imaging: IMPRESSION: Rotator cuff tendinosis with partial-thickness full width tear of the supraspinatus tendon and small low-grade interstitial tear in the subscapularis tendon. Findings which may be seen with adhesive capsulitis. Additional findings as described. Burrer Hand: RADHA Transcribe Date/Time: Jun 05 2022 12:28P Dictated by : AGUSTÍN WELCH MD This examination was interpreted and the report reviewed and electronically signed by: RAMY BAILEY MD on Jun 05 2022 2:39PM EST Results-Findings * * *Final Report* * * DATE OF EXAM: Jun 05 2022 11:25AM [facility] 0239 - [facility]ER [facility] / PROCEDURE REASON: multiple diagnoses * * * * Physician Interpretation * * * * EXAMINATION: [facility] HISTORY: Acute pain of left shoulder Traumatic tear of left rotator cuff, unspecified tear extent, initial encounter Acute pain of left shoulder Traumatic tear of left rotator cuff, unspecified tear extent, initial encounter TECHNIQUE: Routine non-contrast MRI of the shoulder. MQ: [id number]_1A COMPARISON: Shoulder radiographs 05/04/2022 RESULT: Susceptibility artifact centered in the anterior subcutaneous tissues of the shoulder limiting evaluation of adjacent structures. This corresponds to tiny metallic foreign body seen on prior radiographs. TENDONS: Rotator cuff tendons: -Supraspinatus: Evaluation of the anterior supraspinatus tendon is mildly limited by adjacent susceptibility artifact. Partial thickness bursal surface tear involving the entire width of the tendon which is likely high-grade anteriorly. There is moderate underlying tendinosis. -Infraspinatus: Intact with moderate tendinosis -Subscapularis: Low grade interstitial tearing involving the central third of the tendon with background tendinosis -Teres Minor: Intact tendon Biceps (Long head) Tendon: Mild tendinosis at the intra-articular portion with normal course MUSCLES: Rotator cuff muscles: -Supraspinatus: Preserved bulk and no fatty changes. -Infraspinatus: Preserved bulk and no fatty changes. -Subscapularis: Preserved bulk and no fatty changes. -Teres Minor: Preserved bulk and no fatty changes. Other muscles: Preserved signal and bulk in the deltoid. JOINTS: Glenohumeral Joint: -Labrum: Degeneration without discrete tear most prominent superiorly -Cartilage: Normal -Joint Fluid: No effusion . No synovitis. Acromioclavicular Joint: Mild hypertrophic degenerative changes BONES AND MARROW: No evidence of fracture or suspicious bone marrow replacing process OTHER: Subdeltoid/Subacromial Bursa: Mild bursal distention with fluid Other: Mild thickening and intermediate signal thickening of the inferior glenohumeral ligament as well as replacement of the normal fat signal in the rotator cuff interval which may be seen with adhesive capsulitis. Localizer images: No additional findings. Supporting Subjective Information Below: Past Surgical History: PAST SURGICAL HISTORY Procedure Laterality Date CABG (4) VEIN GRAFTS & ARTERIAL GRAFT(S) 2004 COLONOSCOPY FLX DX W/COLLJ SPEC WHEN PFRMD 06/14/[address] Dodge PERICARDIAL WINDOW, DRAINAGE 1991 RENAL ALLOTRANSPLANTATION W/ GRAFT W/O RECIPIENT NEPHRECTOMY 1993, repeat 2019. Medications: Current Outpatient Medications Medication Sig cyclobenzaprine (FLEXERIL) 10 mg tablet Take 1 tablet by mouth three times daily as needed for muscle spasm. CARDURA XL 8 mg 24 hr tablet TAKE 1 TABLET BY MOUTH EVERY DAY WITH BREAKFAST albuterol HFA (PROAIR HFA) 90 mcg/actuation inhaler Inhale 2 Puffs as instructed every 6 hours as needed. predniSONE (DELTASONE) 5 mg tablet Take 1 tablet by mouth once daily. umeclidinium-vilanterol (ANORO ELLIPTA) 62.5-25 mcg/actuation inhaler INHALE 1 INHALATION INSTRUCTED ONCE DAILY. albuterol (PROVENTIL) 2.5 mg /3 mL (0.083 %) nebulizer solution Use 3 mL via nebulizer every 4 hours as needed for Wheezing/Shortness of Breath. Use over 5-15minutes. ASTAGRAF XL 0.5 mg capsule Take 1 mg by mouth once daily. DULoxetine (CYMBALTA) 30 mg capsule Take 1 capsule by mouth once daily. amLODIPine (NORVASC) 5 mg tablet Take 5 mg by mouth once daily. atorvastatin (LIPITOR) 80 mg tablet Take 80 mg by mouth daily at bedtime. carvedilol (COREG) 25 mg tablet Take 1 tablet by mouth twice daily with meals. omeprazole (PRILOSEC) 20 mg capsule Take 20 mg by mouth once daily. mycophenolate mofetil (CELLCEPT) 250 mg capsule Take 500 mg by mouth twice daily. magnesium oxide 400 mg cap Take 1 capsule by mouth twice daily. sulfamethoxazole-trimethoprim (BACTRIM,SEPTRA) 400-80 mg per tablet Take 1 tablet by mouth once daily. ASPIRIN 81 MG TAB Take one(1) tablet daily. predniSONE (DELTASONE) 10 mg tablet Take 4 tabs daily for 3 days, then 2 tabs daily for 3 days, then 1 tab daily for 3 days with food. (Patient not taking: Reported on 05/21/2022) gabapentin (NEURONTIN) 300 mg capsule Take 2 capsules by mouth three times daily for 180 days. alendronate (FOSAMAX) 70 mg tablet Take 1 tablet by mouth once each week. Take with a full glass of water, on an empty stomach; do NOT lie down for 30minutes. (Patient not taking: No sig reported) acetaminophen (TYLENOL) 500 mg tablet Take 500 mg by mouth every 8 hours as needed. No current facility-administered medications for this visit. Allergies: Bee Sting and Darvocet-N 100 [Propoxyphene N-Acetaminophen] ROS: General (negative for fatigue, malaise, weight loss/gain) HEENT (negative for headache, earache, recent vision changes, sinus pain, sore throat) Respiratory (no recent shortness of breath, hemoptysis) CV (negative for chest tightness, palpitations) Musculoskeletal (see HPI) Psych (no depression, anxiety) Maynor Baldwin MD documented in this encounter [facility] 05-21-2022 History of Present illness Narrative Maynor Baldwin MD Department of Orthopaedics Orthopaedics [address] [facility] [address] Dept: [phone] Dept May 21, 2022 Consultation requested by Isabel Guillaume CNP for an opinion regarding left shoulder pain. My final recommendations will be communicated back to the requesting physician by way of shared Medical record or letter to requesting physician via [place] mail. CHIEF COMPLAINT: New and Pain of the Left Shoulder HPI About a month ago or so, he was unloading a truck and his finger got stuck while getting out and his arm got pulled and he immediately had left shoulder pain. He has been having a difficult time sleeping in attempting to lift his arm over his head. He is status post kidney transplant. AMB ROOMING INTAKE FLOWSHEET DATA Risk Screening Do you have concerns about personal safety or safety in the home?: No Pain Pain Level: 8 Pain Location: Shoulder-Left Description: Aching, Sharp, Throbbing, Radiating Duration Amount of Time: 4 Duration Units: Weeks Frequency: Intermittent (at night pain is continuous) Intervention/Comfort measure: Reposition, Relaxation, Medication, Cold, Heat (tylenol) Patient presents with: Left Shoulder - New, Pain Jeanie Taylor LPN ASSESSMENT: S46.012A Traumatic tear of left rotator cuff, unspecified tear extent, initial encounter (primary encounter diagnosis) M25.512 Acute pain of left shoulder PLAN: With his mechanism and weakness on physical exam, my concern is for his rotator cuff and I like to get an MRI. FOLLOW UP INSTRUCTIONS: We will see him back after imaging Mr. Marian Koch was advised as to contrast therapies and/or to take analgesics/anti-inflammatories as needed and all contraindications were reviewed. OBJECTIVE: Mr. Marian Koch is a pleasant 52 year old in no apparent distress. Gen:There were no vitals taken for this visit. nl development, non obese, no deformities ENT: Normocephalic, normal hearing, moist mucosa CV: Pulses:Radial= 2+ and symmetric, capillary refill < 2 secs, no peripheral edema/varicosities Skin: no rash, bruising or lesions. Good turgor. Psych: cooperative and appropriate, alert and oriented x 3, good mood and affect. Musculoskeletal: Supple range of motion of the cervical spine without pain. Spurling signs are negative. No atrophy of the deltoid and shoulder musculature. Left shoulder is nontender to palpation over the SC joint, clavicle and AC joint. No tenderness to palpation over the posterior shoulder, positive tenderness palpation over the anterior lateral corner of the shoulder and greater tuberosity. Mild discomfort at the bicipital groove and coracoid. Active range of motion is 120 degrees of forward elevation, 50 degrees external rotation, and internal rotation to the low lumbar spine. Passive range of motion is symmetrical, limited by pain, respectively. No laxity with anterior and posterior stress. Positive Neer and Woodard impingement signs. 3+/5 strength with supraspinatus, 4/5 infraspinatus and subscapularis. Sensation is intact in the axillary, radial, median and ulnar nerve distribution IMAGING: IMPRESSION: 1. No acute pathology. 2. Tiny radiopaque density again noted projecting over the LEFT shoulder as seen in 2017. Etiology uncertain Burrer Hand: RADHA Transcribe Date/Time: May 04 2022 5:02P Dictated by : GENESIS NEWMAN DO This examination was interpreted and the report reviewed and electronically signed by: GENESIS NEWMAN DO on May 04 2022 5:05PM EST Results-Findings * * *Final Report* * * DATE OF EXAM: May 04 2022 5:01PM [facility]OX [id number] - XR SHOULDER 2V AP/TRUE AP LT / PROCEDURE REASON: Acute pain of left shoulder * * * * Physician Interpretation * * * * EXAM(s): XR SHOULDER 2V AP/TRUE AP LT EXAM DATE/TIME: 05/04/2022 5:01 PM HISTORY: 52 years old Clinical information: Acute pain of left shoulder a week ago pulled a pin in a fire extinguisher and it got stuck in his ring and was hanging from his left arm. pain posterior upper left arm up into his neck and shoulder joint TECHNIQUE: Images: XR SHOULDER 2V AP/TRUE AP LT Comparison: Bilateral shoulders 05/21/2017 RESULT: Findings: Tiny radiopaque foreign body projecting over the head of the humerus and glenoid in 2 different views. This was present on the study from 2017 Mild narrowing of the glenohumeral joint. Bone density appears well-preserved. No fractures or dislocations are seen. Supporting Subjective Information Below: Past Medical History: PAST MEDICAL HISTORY Diagnosis Date CAD (coronary artery disease) 02/20/2010 Inactive since CABG. Last heart cath 2006, Dr. Demarco Summers 06/14/15 Lexiscan nuclear stress: no ischemia. Normal L and R sizes and systolic function. EF 56% 10/01/17ech. RV size NL, RVSF ocardiogram Dr. Dameon Mac: LV size NL, mild concenric LVH, EF 56%. RV size NL. RVSF NL. AI 1-2+ Claudication of both lower extremities (HCC) 08/22/2017 02/05/[address] Jauregui: no stenosis left fem-pop bypass. Unable to get CHEL due to non-compressible vesels11/12/[address] Zavala [facility]: RIGHT: resting CHEL > 1.81, non-compressible arteries; TBI 0.40 = PAD; Right ankle: Moderate disease at rest. Right iliofemoral disease. Severe disease noted, post exercise, by tracings. LEFT SIDE: resting CHEL 1.81, non-compressible vessels, CHEL not accurate. COPD (chronic obstructive pulmonary disease) ([facility]) Coronary atherosclerosis of unspecified type of vessel, [place] or graft Coronary artery disease Current mild episode of major depressive disorder ([facility]) 02/05/2019 Depression 03/07/2012 DVT (deep venous thrombosis) ([facility]) End stage renal disease ([facility]) Due to blocked ureter as child GERD (gastroesophageal reflux disease) 03/05/2014 Hyperhomocysteinemia ([facility]) 12/08/2017 Hyperparathyroidism ([facility]) 12/08/2017 Secondary to renal failure. On Sensipar in remote past. Kidney dialysis 1988, and 2000 Neurogenic bladder VIC (obstructive sleep apnea) 08/04/2011 declines CPAP Pulmonary embolism ([facility]) 10-12 years ago Pulmonary nodules Foreign body reaction in pulmonary vasculature, ? cause. Extensive evaluation ruled out vasculitis, fungal inffection, pneumoconiosis. May have been from gortex graft .Resulted in multiple pulmonary nodules. Radiculopathy, lumbar region 11/28/2016 Renal failure 02/20/2010 Renal failure, chronic, stage 3 (moderate) ([facility]) folllowing renal transplant Renal stones Steroid long-term use Transplant kidney 1993 and 2009 Failed in 2000(right in , removed in ; left ') Past Surgical History: PAST SURGICAL HISTORY Procedure Laterality Date CABG (4) VEIN GRAFTS & ARTERIAL GRAFT(S) 2004 COLONOSCOPY FLX DX W/COLLJ SPEC WHEN PFRMD 06/14/[address] Dodge PERICARDIAL WINDOW, DRAINAGE 1991 RENAL ALLOTRANSPLANTATION W/ GRAFT W/O RECIPIENT NEPHRECTOMY 1993, repeat 2019. Family History: FAMILY HISTORY Problem Relation Age of Onset Arthritis Father Cancer Father Lung, 1990. Heart Father Heart Mother 2012. Social History: Social History Tobacco Use Smoking status: Former Packs/day: 1.25 Years: 15.00 Pack years: 18.75 Types: Cigarettes Quit date: 09/06/2011 Years since quittin.7 Smokeless tobacco: Current Types: Chew Vaping Use Vaping Use: Never used Substance Use Topics Alcohol use: No Drug use: No Medications: Current Outpatient Medications Medication Sig cyclobenzaprine (FLEXERIL) 10 mg tablet Take 1 tablet by mouth three times daily as needed for muscle spasm. albuterol HFA (PROAIR HFA) 90 mcg/actuation inhaler Inhale 2 Puffs as instructed every 6 hours as needed. predniSONE (DELTASONE) 5 mg tablet Take 1 tablet by mouth once daily. umeclidinium-vilanterol (ANORO ELLIPTA) 62.5-25 mcg/actuation inhaler INHALE 1 INHALATION INSTRUCTED ONCE DAILY. albuterol (PROVENTIL) 2.5 mg /3 mL (0.083 %) nebulizer solution Use 3 mL via nebulizer every 4 hours as needed for Wheezing/Shortness of Breath. Use over 5-15minutes. ASTAGRAF XL 0.5 mg capsule Take 1 mg by mouth once daily. DULoxetine (CYMBALTA) 30 mg capsule Take 1 capsule by mouth once daily. amLODIPine (NORVASC) 5 mg tablet Take 5 mg by mouth once daily. atorvastatin (LIPITOR) 80 mg tablet Take 80 mg by mouth daily at bedtime. carvedilol (COREG) 25 mg tablet Take 1 tablet by mouth twice daily with meals. omeprazole (PRILOSEC) 20 mg capsule Take 20 mg by mouth once daily. acetaminophen (TYLENOL) 500 mg tablet Take 500 mg by mouth every 8 hours as needed. mycophenolate mofetil (CELLCEPT) 250 mg capsule Take 500 mg by mouth twice daily. magnesium oxide 400 mg cap Take 1 capsule by mouth twice daily. sulfamethoxazole-trimethoprim (BACTRIM,SEPTRA) 400-80 mg per tablet Take 1 tablet by mouth once daily. ASPIRIN 81 MG TAB Take one(1) tablet daily. predniSONE (DELTASONE) 10 mg tablet Take 4 tabs daily for 3 days, then 2 tabs daily for 3 days, then 1 tab daily for 3 days with food. (Patient not taking: Reported on 05/21/2022) CARDURA XL 8 mg 24 hr tablet TAKE 1 TABLET BY MOUTH EVERY DAY WITH BREAKFAST gabapentin (NEURONTIN) 300 mg capsule Take 2 capsules by mouth three times daily for 180 days. alendronate (FOSAMAX) 70 mg tablet Take 1 tablet by mouth once each week. Take with a full glass of water, on an empty stomach; do NOT lie down for 30minutes. (Patient not taking: No sig reported) No current facility-administered medications for this visit. Allergies: Bee Sting and Darvocet-N 100 [Propoxyphene N-Acetaminophen] ROS: General (negative for fatigue, malaise, weight loss/gain) HEENT (negative for headache, earache, recent vision changes, sinus pain, sore throat) Respiratory (no recent shortness of breath, hemoptysis) CV (negative for chest tightness, palpitations) Musculoskeletal (see HPI) Psych (no depression, anxiety) REFERRING PHYSICIAN: Mr. Marian Koch was referred to me for consultation by the following physician. This consultation note will be sent to the following physician by either mail or electronic medical record. Isabel Guillaume [address] [facility] [address] M Ines Tate PA-C [address] [facility] [id number] Maynor Baldwin MD documented in this encounter [facility] 05-08-2022 Note HNO ID: [id number] Author: Laurie Badillo, DO Service: ? Author Type: Physician Type: Progress Notes Filed: 05/17/2022 12:54 AM Note Text: [facility] [place] [facility] LOCATION: [address] [place] [address] ESTABLISHED PATIENT PATIENT INFO: Marian Koch 52 year old Chief Complaint: Atonic bladder HPI F/U after UDS 1-Duration: 2021 2-Location: bladder 3-Severity: N/A 4-Quality: Not applicable 5-Context: N/A 6-Timing: N/A 7-Modifying factors: No treatment prior to referral 8-Associated signs AND symptoms: no additional symptoms No question data found. PATHOLOGY: NONE LAB: WBC (k/uL) Date Value 06/05/2021 6.77 RBC (m/uL) Date Value 06/05/2021 3.93 (L) Hemoglobin (g/dL) Date Value 06/05/2021 11.7 (L) Hematocrit (%) Date Value 06/05/2021 35.0 (L) MCV (fL) Date Value 06/05/2021 89.1 MCH (pG) Date Value 06/05/2021 29.8 MCHC (g/dL) Date Value 06/05/2021 33.4 RDW-CV (%) Date Value 06/05/2021 13.3 Platelet Count (k/uL) Date Value 06/05/2021 112 (L) MPV (fL) Date Value 06/05/2021 10.6 Neut% (%) Date Value 06/05/2021 83.8 Lymph% (%) Date Value 06/05/2021 10.8 [place]% (%) Date Value 06/05/2021 5.0 Eosin% (%) Date Value 06/05/2021 0.1 Baso% (%) Date Value 06/05/2021 0.3 Abs Neut (ANC) (k/uL) Date Value 06/05/2021 5.65 Abs [place] (k/uL) Date Value 06/05/2021 0.34 Abs Eosin (k/uL) Date Value 06/05/2021 <0.03 Abs Baso (k/uL) Date Value 06/05/2021 <0.03 Creatinine Date Value Ref Range Status 06/05/2021 2.22 (H) 0.73 - 1.22 mg/dL Final 05/19/2019 1.60 (H) 0.73 - 1.22 mg/dL Final 10/28/2017 1.95 (H) 0.73 - 1.22 mg/dL Final PSA (ng/mL) Date Value 02/19/2022 0.17 URINE POC GLUCOSE UA (POCT) Negative 03/06/2022 BILIRUBIN UA (POCT) Negative 03/06/2022 KETONE UA (POCT) Negative 03/06/2022 SPECIFIC GRAVITY UA (POCT) 1.010 03/06/2022 HEMOGLOBIN/BLOOD UA (POCT) Trace-intact 03/06/2022 PH UA (POCT) 7.0 03/06/2022 PROTEIN UA (POCT) 30 03/06/2022 UROBILINOGEN UA (POCT) 0.2 03/06/2022 NITRITE UA (POCT) Negative 03/06/2022 LEUKOCYTES UA (POCT) Negative 03/06/2022 COLOR UA (POCT) Yellow 03/06/2022 CLARITY UA (POCT) Clear 03/06/2022 IMAGING: None No imaging to review. ALLERGIES: ALLERGIES Allergen Reactions Bee Sting Hives, Swelling Darvocet-N 100 [Pro* Hives MEDICATIONS: predniSONE (DELTASONE) 10 mg tablet Take 4 tabs daily for 3 days, then 2 tabs daily for 3 days, then 1 tab daily for 3 days with food. cyclobenzaprine (FLEXERIL) 10 mg tablet Take 1 tablet by mouth three times daily as needed for muscle spasm. CARDURA XL 8 mg 24 hr tablet TAKE 1 TABLET BY MOUTH EVERY DAY WITH BREAKFAST albuterol HFA (PROAIR HFA) 90 mcg/actuation inhaler Inhale 2 Puffs as instructed every 6 hours as needed. predniSONE (DELTASONE) 5 mg tablet Take 1 tablet by mouth once daily. umeclidinium-vilanterol (ANORO ELLIPTA) 62.5-25 mcg/actuation inhaler INHALE 1 INHALATION INSTRUCTED ONCE DAILY. albuterol (PROVENTIL) 2.5 mg /3 mL (0.083 %) nebulizer solution Use 3 mL via nebulizer every 4 hours as needed for Wheezing/Shortness of Breath. Use over 5-15minutes. gabapentin (NEURONTIN) 300 mg capsule Take 2 capsules by mouth three times daily for 180 days. ASTAGRAF XL 0.5 mg capsule Take 1 mg by mouth once daily. alendronate (FOSAMAX) 70 mg tablet Take 1 tablet by mouth once each week. Take with a full glass of water, on an empty stomach; do NOT lie down for 30minutes. DULoxetine (CYMBALTA) 30 mg capsule Take 1 capsule by mouth once daily. amLODIPine (NORVASC) 5 mg tablet Take 5 mg by mouth once daily. atorvastatin (LIPITOR) 80 mg tablet Take 80 mg by mouth daily at bedtime. carvedilol (COREG) 25 mg tablet Take 1 tablet by mouth twice daily with meals. omeprazole (PRILOSEC) 20 mg capsule Take 20 mg by mouth once daily. acetaminophen (TYLENOL) 500 mg tablet Take 500 mg by mouth every 8 hours as needed. mycophenolate mofetil (CELLCEPT) 250 mg capsule Take 500 mg by mouth twice daily. magnesium oxide 400 mg cap Take 1 capsule by mouth twice daily. sulfamethoxazole-trimethoprim (BACTRIM) 400-80 mg ORAL per tablet Take 1 tablet by mouth once daily. ASPIRIN 81 MG TAB Take one(1) tablet daily. Does the patient take any herbal medications?: No HISTORIES PAST MEDICAL HISTORY Diagnosis Date CAD (coronary artery disease) 02/20/2010 Inactive since CABG. Last heart cath 2006, Dr. Demarco Summers 06/14/15 Lexiscan nuclear stress: no ischemia. Normal L and R sizes and systolic function. EF 56% 10/01/17ech. RV size NL, RVSF ocardiogram Dr. Dameon Mac: LV size NL, mild concenric LVH, EF 56%. RV size NL. RVSF NL. AI 1-2+ Claudication of both lower extremities (HCC) 08/22/2017 02/05/19 PVR Johana Vazqueznic: no stenosis left fem-pop bypass. Unable to get CHEL due to non-compressible vesels11/12/[address] Zavala [facility]: RIGHT: resting CHEL > 1.81, no (more content not included)... [facility] 05-08-2022 History of Present illness Narrative Images from the original note were not included. [facility] [place] [facility] LOCATION: [address] [place] [address] ESTABLISHED PATIENT PATIENT INFO: Marian Koch 52 year old Chief Complaint: Atonic bladder HPI F/U after UDS 1-Duration: 2021 2-Location: bladder 3-Severity: N/A 4-Quality: Not applicable 5-Context: N/A 6-Timing: N/A 7-Modifying factors: No treatment prior to referral 8-Associated signs & symptoms: no additional symptoms No question data found. PATHOLOGY: NONE LAB: WBC (k/uL) Date Value 06/05/2021 6.77 RBC (m/uL) Date Value 06/05/2021 3.93 (L) Hemoglobin (g/dL) Date Value 06/05/2021 11.7 (L) Hematocrit (%) Date Value 06/05/2021 35.0 (L) MCV (fL) Date Value 06/05/2021 89.1 MCH (pG) Date Value 06/05/2021 29.8 MCHC (g/dL) Date Value 06/05/2021 33.4 RDW-CV (%) Date Value 06/05/2021 13.3 Platelet Count (k/uL) Date Value 06/05/2021 112 (L) MPV (fL) Date Value 06/05/2021 10.6 Neut% (%) Date Value 06/05/2021 83.8 Lymph% (%) Date Value 06/05/2021 10.8 [place]% (%) Date Value 06/05/2021 5.0 Eosin% (%) Date Value 06/05/2021 0.1 Baso% (%) Date Value 06/05/2021 0.3 Abs Neut (ANC) (k/uL) Date Value 06/05/2021 5.65 Abs [place] (k/uL) Date Value 06/05/2021 0.34 Abs Eosin (k/uL) Date Value 06/05/2021 <0.03 Abs Baso (k/uL) Date Value 06/05/2021 <0.03 Creatinine Date Value Ref Range Status 06/05/2021 2.22 (H) 0.73 - 1.22 mg/dL Final 05/19/2019 1.60 (H) 0.73 - 1.22 mg/dL Final 10/28/2017 1.95 (H) 0.73 - 1.22 mg/dL Final PSA (ng/mL) Date Value 02/19/2022 0.17 URINE POC GLUCOSE UA (POCT) Negative 03/06/2022 BILIRUBIN UA (POCT) Negative 03/06/2022 KETONE UA (POCT) Negative 03/06/2022 SPECIFIC GRAVITY UA (POCT) 1.010 03/06/2022 HEMOGLOBIN/BLOOD UA (POCT) Trace-intact 03/06/2022 PH UA (POCT) 7.0 03/06/2022 PROTEIN UA (POCT) 30 03/06/2022 UROBILINOGEN UA (POCT) 0.2 03/06/2022 NITRITE UA (POCT) Negative 03/06/2022 LEUKOCYTES UA (POCT) Negative 03/06/2022 COLOR UA (POCT) Yellow 03/06/2022 CLARITY UA (POCT) Clear 03/06/2022 IMAGING: None No imaging to review. ALLERGIES: ALLERGIES Allergen Reactions Bee Sting Hives, Swelling Darvocet-N 100 [Pro* Hives MEDICATIONS: predniSONE (DELTASONE) 10 mg tablet Take 4 tabs daily for 3 days, then 2 tabs daily for 3 days, then 1 tab daily for 3 days with food. cyclobenzaprine (FLEXERIL) 10 mg tablet Take 1 tablet by mouth three times daily as needed for muscle spasm. CARDURA XL 8 mg 24 hr tablet TAKE 1 TABLET BY MOUTH EVERY DAY WITH BREAKFAST albuterol HFA (PROAIR HFA) 90 mcg/actuation inhaler Inhale 2 Puffs as instructed every 6 hours as needed. predniSONE (DELTASONE) 5 mg tablet Take 1 tablet by mouth once daily. umeclidinium-vilanterol (ANORO ELLIPTA) 62.5-25 mcg/actuation inhaler INHALE 1 INHALATION INSTRUCTED ONCE DAILY. albuterol (PROVENTIL) 2.5 mg /3 mL (0.083 %) nebulizer solution Use 3 mL via nebulizer every 4 hours as needed for Wheezing/Shortness of Breath. Use over 5-15minutes. gabapentin (NEURONTIN) 300 mg capsule Take 2 capsules by mouth three times daily for 180 days. ASTAGRAF XL 0.5 mg capsule Take 1 mg by mouth once daily. alendronate (FOSAMAX) 70 mg tablet Take 1 tablet by mouth once each week. Take with a full glass of water, on an empty stomach; do NOT lie down for 30minutes. DULoxetine (CYMBALTA) 30 mg capsule Take 1 capsule by mouth once daily. amLODIPine (NORVASC) 5 mg tablet Take 5 mg by mouth once daily. atorvastatin (LIPITOR) 80 mg tablet Take 80 mg by mouth daily at bedtime. carvedilol (COREG) 25 mg tablet Take 1 tablet by mouth twice daily with meals. omeprazole (PRILOSEC) 20 mg capsule Take 20 mg by mouth once daily. acetaminophen (TYLENOL) 500 mg tablet Take 500 mg by mouth every 8 hours as needed. mycophenolate mofetil (CELLCEPT) 250 mg capsule Take 500 mg by mouth twice daily. magnesium oxide 400 mg cap Take 1 capsule by mouth twice daily. sulfamethoxazole-trimethoprim (BACTRIM) 400-80 mg ORAL per tablet Take 1 tablet by mouth once daily. ASPIRIN 81 MG TAB Take one(1) tablet daily. Does the patient take any herbal medications?: No HISTORIES PAST MEDICAL HISTORY Diagnosis Date CAD (coronary artery disease) 02/20/2010 Inactive since CABG. Last heart cath 2006, Dr. Demarco Summers 06/14/15 Lexiscan nuclear stress: no ischemia. Normal L and R sizes and systolic function. EF 56% 10/01/17ech. RV size NL, RVSF ocardiogram Dr. Dameon Mac: LV size NL, mild concenric LVH, EF 56%. RV size NL. RVSF NL. AI 1-2+ Claudication of both lower extremities ([facility]) 08/22/2017 02/05/[address] Jauregui: no stenosis left fem-pop bypass. Unable to get CHEL due to non-compressible vesels11/12/[address] Zavala [facility]: RIGHT: resting CHEL > 1.81, non-compressible arteries; TBI 0.40 = PAD; Right ankle: Moderate disease at rest. Right iliofemoral disease. Severe disease noted, post exercise, by tracings. LEFT SIDE: resting CHEL 1.81, non-compressible vessels, CHEL not accurate. COPD (chronic obstructive pulmonary disease) ([facility]) Coronary atherosclerosis of unspecified type of vessel, [place] or graft Coronary artery disease Current mild episode of major depressive disorder ([facility]) 02/05/2019 Depression 03/07/2012 DVT (deep venous thrombosis) ([facility]) End stage renal disease ([facility]) Due to blocked ureter as child GERD (gastroesophageal reflux disease) 03/05/2014 Hyperhomocysteinemia ([facility]) 12/08/2017 Hyperparathyroidism ([facility]) 12/08/2017 Secondary to renal failure. On Sensipar in remote past. Kidney dialysis 1988, and 2000 Neurogenic bladder VIC (obstructive sleep apnea) 08/04/2011 declines CPAP Pulmonary embolism ([facility]) 10-12 years ago Pulmonary nodules Foreign body reaction in pulmonary vasculature, ? cause. Extensive evaluation ruled out vasculitis, fungal inffection, pneumoconiosis. May have been from gortex graft .Resulted in multiple pulmonary nodules. Radiculopathy, lumbar region 11/28/2016 Renal failure 02/20/2010 Renal failure, chronic, stage 3 (moderate) (HCC) folllowing renal transplant Renal stones Steroid long-term use Transplant kidney 1993 and 2009 Failed in 2000(right in , removed in ; left ) Smoking Status Reviewed: Yes REVIEW OF SYSTEMS GENERAL: No fever, chills, weight loss, or fatigue. HEAD & NECK: No blurred vision or Sjogren's syndrome CARDIOVASCULAR: NO CHEST PAIN, PALPITATIONS, ANKLE EDEMA RESPIRATORY: No chronic cough, wheezing, dyspnea, hemoptysis. MUSCULOSKELETAL: NO CHRONIC BACK PAIN, ARTHRITIS, CHRONIC NECK PAIN SKIN: NO VARICOSE VEINS, RASH, ABNORMAL ITCHING BLOOD/LYMPHATIC: No easy bleeding, easy bruising, transfusion Hx NEUROLOGICAL: NO HEADACHES, NUMBNESS, SEIZURES, STROKE PSYCHIATRIC: No depression or inordinate anxiety The remainder of the ROS was negative. PHYSICAL EXAMINATION Ht 165.1 cm (5' 5 ) Wt 65.8 kg (145 lb) BMI 24.13 kg/m General appearance: Well appearing, alert, in no acute distress, and well-hydrated, well nourished Skin: Skin color, texture, turgor normal, no suspicious rashes or lesions Head: Normocephalic, no masses, lesions, tenderness or abnormalities Abdomen: Normal abdominal exam, Abdomen soft, non-tender. Bowel sounds normal. No masses, organomegaly Genitourinary: MALE EXAM: Exam NOT Indicated PVR: NA IMPRESSION/PLAN: Marian Koch 52 year old male is here today for discussion and evaluation of Urine Retention, he has history of BPH and urine retention, for which he has been on Doxazosin 8 mg for, he cannot take Flomax due the need to have cataract surgery He is s/p 2 Renal Transplants last was 2009, and there is concern of renal damage from the obstruction. Cysto with severely trabeculated bladder. PVR today 305 cc. Continue CIC BID - QID. UDS with atonic bladder F/U in 3-6 months I spent 30 minutes in the visit, with more than 50% of the total [id number] time of the visit in counseling / coordination of care. Laurie Badillo DO MBA documented in this encounter [facility] 05-04-2022 Instructions Isabel Guillaume APRN.CNP - 05/04/2022 5:13 PM EDT Follow up with ortho, possible rotator cuff Incidental finding on xray R.I.C.E. The general care of your injury includes the following: Resting, Icing, Compressing and Elevating the injured area. Remember this as RICE. REST: Limit the use of the injured body part. ICE: By applying ice to the affected area, swelling and pain can be reduced. Place some ice cubes in a re-sealable (Ziploc) bag and add some water. Put a thin washcloth between the bag and your skin. Apply the ice bag to the area for at least 20 minutes. Do this at least 4 times per day. Using the ice for longer times and more frequently is OK. NEVER APPLY ICE DIRECTLY TO THE SKIN. COMPRESS: Compression means to apply pressure around the injured area such as with a splint, cast or an rachel bandage. Compression decreases swelling and improves comfort. Compression should be tight enough to relieve swelling but not so tight as to decrease circulation. Increasing pain, numbness, tingling, or change in skin color, are all signs of decreased circulation. ELEVATE: Elevate the injured part. For example, elevate your foot by placing it on a chair while sitting, or propping it up on pillows when lying down. documented in this encounter [facility] 05-04-2022 History of Present illness Narrative Images from the original note were not included. This note was created using Checkmarx[employer]. Subjective Marian Koch is a 52 year old male. 52 year old male with PMH HNT, x 2 kidney transplant (on anti rejections), PE, hyperlipidemia, COPD, CAD and depression presents with left shoulder pain. Acute onset of symptoms was one week ago States that he was unloading his truck, His ring finger became stuck on an item hanging out, And patient ultimately states he was dangling for a minute. Left shoulder pain, posterior, States he has not been able to sleep Cannot lift arm above his head Denies break in skin integrity. Denies ecchymosis. States he has had kidney disease since he was 3 States that he has a hard time sleeping. 1993 and 2009 were kidney transplatn. The history is provided by the patient. No manager medicaid was used. Shoulder Injury The incident occurred more than 2 days ago. The incident occurred at home. Injury mechanism: see HPI. The left shoulder is affected. The pain is at a severity of 6/10. The pain is moderate. The pain has been constant since onset. The pain does not radiate. There is no history of shoulder injury. He has no other injuries. There is no history of shoulder surgery. Associated symptoms include tingling. Pertinent negatives include no numbness and no muscle weakness. He reports no foreign bodies present. PAST MEDICAL HISTORY Diagnosis Date CAD (coronary artery disease) 02/20/2010 Inactive since CABG. Last heart cath 2006, Dr. Demarco Summers 06/14/15 Lexiscan nuclear stress: no ischemia. Normal L and R sizes and systolic function. EF 56% 10/01/17ech. RV size NL, RVSF ocardiogram Dr. Dameon Mac: LV size NL, mild concenric LVH, EF 56%. RV size NL. RVSF NL. AI 1-2+ Claudication of both lower extremities (HCC) 08/22/2017 02/05/19 PVR Johana Vazqueznic: no stenosis left fem-pop bypass. Unable to get CHEL due to non-compressible vesels11/12/[address] Zavala [facility]: RIGHT: resting CHEL > 1.81, non-compressible arteries; TBI 0.40 = PAD; Right ankle: Moderate disease at rest. Right iliofemoral disease. Severe disease noted, post exercise, by tracings. LEFT SIDE: resting CHEL 1.81, non-compressible vessels, CHEL not accurate. COPD (chronic obstructive pulmonary disease) (HCC) Coronary atherosclerosis of unspecified type of vessel, [place] or graft Coronary artery disease Current mild episode of major depressive disorder (HCC) 02/05/2019 Depression 03/07/2012 DVT (deep venous thrombosis) ([facility]) End stage renal disease (HCC) Due to blocked ureter as child GERD (gastroesophageal reflux disease) 03/05/2014 Hyperhomocysteinemia (HCC) 12/08/2017 Hyperparathyroidism (HCC) 12/08/2017 Secondary to renal failure. On Sensipar in remote past. Kidney dialysis 1988, and 2000 Neurogenic bladder VIC (obstructive sleep apnea) 08/04/2011 declines CPAP Pulmonary embolism (HCC) 10-12 years ago Pulmonary nodules Foreign body reaction in pulmonary vasculature, ? cause. Extensive evaluation ruled out vasculitis, fungal inffection, pneumoconiosis. May have been from gortex graft .Resulted in multiple pulmonary nodules. Radiculopathy, lumbar region 11/28/2016 Renal failure 02/20/2010 Renal failure, chronic, stage 3 (moderate) (HCC) folllowing renal transplant Renal stones Steroid long-term use Transplant kidney 1993 and 2009 Failed in 2000(right in , removed in ; left ) PAST SURGICAL HISTORY Procedure Laterality Date CABG (4) VEIN GRAFTS & ARTERIAL GRAFT(S) 2004 COLONOSCOPY FLX DX W/COLLJ SPEC WHEN PFRMD 06/14/[address] Dodge PERICARDIAL WINDOW, DRAINAGE 1991 RENAL ALLOTRANSPLANTATION W/ GRAFT W/O RECIPIENT NEPHRECTOMY 1993, repeat 2019. ALLERGIES Bee Sting and Darvocet-N 100 [Propoxyphene N-Acetaminophen] MEDICATIONS predniSONE (DELTASONE) 10 mg tablet Take 4 tabs daily for 3 days, then 2 tabs daily for 3 days, then 1 tab daily for 3 days with food. cyclobenzaprine (FLEXERIL) 10 mg tablet Take 1 tablet by mouth three times daily as needed for muscle spasm. CARDURA XL 8 mg 24 hr tablet TAKE 1 TABLET BY MOUTH EVERY DAY WITH BREAKFAST albuterol HFA (PROAIR HFA) 90 mcg/actuation inhaler Inhale 2 Puffs as instructed every 6 hours as needed. predniSONE (DELTASONE) 5 mg tablet Take 1 tablet by mouth once daily. umeclidinium-vilanterol (ANORO ELLIPTA) 62.5-25 mcg/actuation inhaler INHALE 1 INHALATION INSTRUCTED ONCE DAILY. albuterol (PROVENTIL) 2.5 mg /3 mL (0.083 %) nebulizer solution Use 3 mL via nebulizer every 4 hours as needed for Wheezing/Shortness of Breath. Use over 5-15minutes. gabapentin (NEURONTIN) 300 mg capsule Take 2 capsules by mouth three times daily for 180 days. ASTAGRAF XL 0.5 mg capsule Take 1 mg by mouth once daily. alendronate (FOSAMAX) 70 mg tablet Take 1 tablet by mouth once each week. Take with a full glass of water, on an empty stomach; do NOT lie down for 30minutes. DULoxetine (CYMBALTA) 30 mg capsule Take 1 capsule by mouth once daily. amLODIPine (NORVASC) 5 mg tablet Take 5 mg by mouth once daily. atorvastatin (LIPITOR) 80 mg tablet Take 80 mg by mouth daily at bedtime. carvedilol (COREG) 25 mg tablet Take 1 tablet by mouth twice daily with meals. omeprazole (PRILOSEC) 20 mg capsule Take 20 mg by mouth once daily. acetaminophen (TYLENOL) 500 mg tablet Take 500 mg by mouth every 8 hours as needed. mycophenolate mofetil (CELLCEPT) 250 mg capsule Take 500 mg by mouth twice daily. magnesium oxide 400 mg cap Take 1 capsule by mouth twice daily. sulfamethoxazole-trimethoprim (BACTRIM) 400-80 mg ORAL per tablet Take 1 tablet by mouth once daily. ASPIRIN 81 MG TAB Take one(1) tablet daily. FAMILY HISTORY Problem Relation Age of Onset Arthritis Father Cancer Father Lung, 1990. Heart Father Heart Mother 2012. Social History Tobacco Use Smoking status: Former Smoker Packs/day: 1.25 Years: 15.00 Pack years: 18.75 Types: Cigarettes Quit date: 09/06/2011 Years since quittin.6 Smokeless tobacco: Current User Types: Chew Vaping Use Vaping Use: Never used Substance Use Topics Alcohol use: No Drug use: No Review of Systems Constitutional: Negative for activity change, appetite change, chills and diaphoresis. Eyes: Negative for photophobia, pain, discharge, redness, itching and visual disturbance. Respiratory: Negative for apnea, choking and chest tightness. Cardiovascular: Negative for chest pain, palpitations and leg swelling. Gastrointestinal: Negative for abdominal pain, diarrhea, nausea and vomiting. Musculoskeletal: Negative for arthralgias, back pain and gait problem. Left shoulder Skin: Negative for color change, pallor, rash and wound. Allergic/Immunologic: Negative for environmental allergies, food allergies and immunocompromised state. Neurological: Positive for tingling. Negative for dizziness, facial asymmetry, numbness and headaches. Hematological: Negative for adenopathy. Does not bruise/bleed easily. Psychiatric/Behavioral: Negative for agitation and behavioral problems. Objective BP 110/66 Pulse 64 Temp 37.1 C (98.7 F) Resp 20 Wt 66 kg (145 lb 6.4 oz) SpO2 97% BMI 24.20 kg/m Physical Exam Vitals and nursing note reviewed. Constitutional: General: He is not in acute distress. Appearance: Normal appearance. He is not ill-appearing, toxic-appearing or diaphoretic. HENT: Head: Normocephalic and atraumatic. Right Ear: External ear normal. Left Ear: External ear normal. Nose: Nose normal. No congestion or rhinorrhea. Mouth/Throat: Mouth: Mucous membranes are moist. Pharynx: Oropharynx is clear. No oropharyngeal exudate or posterior oropharyngeal erythema. Eyes: General: Right eye: No discharge. Left eye: No discharge. Extraocular Movements: Extraocular movements intact. Conjunctiva/sclera: Conjunctivae normal. Pupils: Pupils are equal, round, and reactive to light. Cardiovascular: Rate and Rhythm: Normal rate and regular rhythm. Pulses: Normal pulses. Heart sounds: Normal heart sounds. No murmur heard. No friction rub. No gallop. Pulmonary: Effort: Pulmonary effort is normal. No respiratory distress. Breath sounds: Normal breath sounds. No stridor. No wheezing, rhonchi or rales. Chest: Chest wall: No tenderness. Abdominal: General: Abdomen is flat. There is no distension. Palpations: Abdomen is soft. There is no mass. Tenderness: There is no abdominal tenderness. There is no guarding or rebound. Hernia: No hernia is present. Musculoskeletal: General: No swelling, tenderness, deformity or signs of injury. Normal range of motion. Arms: Cervical back: Normal range of motion and neck supple. No rigidity or tenderness. Right lower leg: No edema. Left lower leg: No edema. Comments: B/L arms with healed AV fistulas Lymphadenopathy: Cervical: No cervical adenopathy. Skin: General: Skin is warm and dry. Capillary Refill: Capillary refill takes less than 2 seconds. Coloration: Skin is not jaundiced or pale. Findings: No bruising, lesion or rash. Neurological: General: No focal deficit present. Mental Status: He is alert and oriented to person, place, and time. Cranial Nerves: No cranial nerve deficit. Sensory: No sensory deficit. Motor: No weakness. Coordination: Coordination normal. Gait: Gait normal. Deep Tendon Reflexes: Reflexes normal. Psychiatric: Mood and Affect: Mood normal. Behavior: Behavior normal. Thought Content: Thought content normal. Assessment and Plan ASSESSMENT/PLAN: 1. Acute pain of left shoulder - ICD9: 719.41, ICD10: M25.512 (primary diagnosis) Related to dangling/injury No obvious deformity - XR SHOULDER LIMITED 2V AP/TRUE AP LEFT-negative for acute fx or dislocation Discussed concerns for possible rotator cuff pathology - CONSULT TO ORTHOPAEDICS-and made at time of discharge with PSS RICE therapy RX Flexeril and Prednisone 2. Abnormal x-ray - ICD9: 793.99, ICD10: R93.89 Tiny radiopaque density again noted projecting over the LEFT shoulder as seen in 2017. Etiology uncertain Patient states he was never aware of findings He will follow up with ortho. Isabel Guillaume APRN.PLC ENGINEER documented in this encounter [facility] 04-20-2022 Note HNO ID: [id number] Author: Eleni Shaw RN Service: ? Author Type: Registered Nurse Type: Progress Notes Filed: 04/26/2022 12:23 PM Note Text: Marian Koch [id number] 1970 April 20, 2022 Diagnoses: Urinary Retention UA done: No Procedure Performed: Multichannel urodynamic testing including multichannel cystometrogram, uroflowmetry, pressure voiding study and EMG. Was a uroflow done at some point during the study: Yes Was a cystometrogram performed: Yes Was a UPP done: No Was an EMG done: Yes Was an intraabdominal pressure recorded: Yes Where were pressure catheters placed: Bladder and Rectum Procedure: The patient verified medications and allergies. The procedure was explained to the patient. Immediately prior to the test the patient was given Lidocaine 2% jelly 11 ml to urethra per order. No ATB given. Patent on Bactrim. UNIVERSAL PROTOCOL / SAFETY CHECKLIST A moment to CARE: Completed Procedure to be performed: Urodynamics Sign in Communication: Completed Time Out: Team Confirms the Correct Patient, Correct Procedure, Correct Site and Site Marking, Correct Position (if applicable), Prep and Dry Time (if applicable). Time: 0800 Affirmation of Time Out: N/A Sign Out Discussion: Completed Urodynamic Findings: Uroflow : Patient arrived with a kemp catheter- No. Patient voided 332.4 ml; Curve: Normal Post void residual 350 ml QMAX 7.4 ; QAVG 3.3 . Cystometrogram: The patient had a cystometrogram EMG: Yes First Sensation 349 ml First desire 502 ml Strong Desire 797 ml Capacity 936 ml The patient did not leak with cough. no destrusor contractions Instability associated with urge: No Instability associated with leakage: No Pressure-Flow Voiding Study: EMG: Yes Void 589.6 ml; Curve: Normal Post void residual: 475 ml Maximum detrusor pressure 22.7 Cm H20 Maximum flow rate: 9.1 ml/sec Average flow rate: 4.5 ml/sec UDS notes: N/A Plan: Patient will follow up with provider to discuss plan of care and results. Patient tolerated the procedure well. Home going instructions given. Patient able to repeat back understanding of instructions. Eleni Shaw RN cc: Laurie Badillo DO Urodynamic Results Uroflow PVR 350 Flow 7 CMG First sensation 349 Max volume 936 Uninhibited bladder contractions no Leakage no EMG nl Nl compliance UPP not interpreted Leakage MUCP Pressure Flow PVR 475 Flow 9 EMG nl Low detrusor pressure Summary Atonic bladder Celso Godinez Jr, MD [facility] 04-20-2022 History of Present illness Narrative Marian Koch [id number] 1970 April 20, 2022 Diagnoses: Urinary Retention UA done: No Procedure Performed: Multichannel urodynamic testing including multichannel cystometrogram, uroflowmetry, pressure voiding study and EMG. Was a uroflow done at some point during the study: Yes Was a cystometrogram performed: Yes Was a UPP done: No Was an EMG done: Yes Was an intraabdominal pressure recorded: Yes Where were pressure catheters placed: Bladder and Rectum Procedure: The patient verified medications and allergies. The procedure was explained to the patient. Immediately prior to the test the patient was given Lidocaine 2% jelly 11 ml to urethra per order. No ATB given. Patent on Bactrim. UNIVERSAL PROTOCOL / SAFETY CHECKLIST A moment to CARE: Completed Procedure to be performed: Urodynamics Sign in Communication: Completed Time Out: Team Confirms the Correct Patient, Correct Procedure, Correct Site and Site Marking, Correct Position (if applicable), Prep and Dry Time (if applicable). Time: 0800 Affirmation of Time Out: N/A Sign Out Discussion: Completed Urodynamic Findings: Uroflow : Patient arrived with a kemp catheter- No. Patient voided 332.4 ml; Curve: Normal Post void residual 350 ml QMAX 7.4 ; QAVG 3.3 . Cystometrogram: The patient had a cystometrogram EMG: Yes First Sensation 349 ml First desire 502 ml Strong Desire 797 ml Capacity 936 ml The patient did not leak with cough. no destrusor contractions Instability associated with urge: No Instability associated with leakage: No Pressure-Flow Voiding Study: EMG: Yes Void 589.6 ml; Curve: Normal Post void residual: 475 ml Maximum detrusor pressure 22.7 Cm H20 Maximum flow rate: 9.1 ml/sec Average flow rate: 4.5 ml/sec UDS notes: N/A Plan: Patient will follow up with provider to discuss plan of care and results. Patient tolerated the procedure well. Home going instructions given. Patient able to repeat back understanding of instructions. Eleni Shaw RN cc: Laurie Badillo DO documented in this encounter [facility] 04-20-2022 Instructions Eleni Shaw RN - 04/20/2022 7:44 AM EDT POST PROCEDURE INSTRUCTIONS Marian Koch April 20, 2022 Increase your fluid intake. FOLLOW UP APPOINTMENT: 05/08/22 at 3:00 pm with Laurie Badillo DO in the [address] [place] [address] office. WHEN TO CALL THE DOCTOR: If you develop fever (over 101 degrees) or chills. If you cannot urinate or empty your bladder. If you develop symptoms of a urinary tract infection such as burning or pain with urination, increased frequency of urination or foul smelling urine If you have any other questions or problems. Office phone number; [phone] documented in this encounter [facility] 03-06-2022 Note HNO ID: [id number] Author: Laurie Badillo DO Service: ? Author Type: Physician Type: Procedures Filed: 03/06/2022 3:57 PM Note Text: CYSTOSCOPY PROCEDURE NOTE: Marian Koch is a 52 year old male who presents with urinary retention for cystoscopy. Pt ID verified with patient: Yes Procedure verified with patient: Yes Procedure confirmed with physician and patient support specialist: Yes Sign In History and Physical Exam reviewed and is unchanged. . Informed Consent Discussed: Yes. Risks, benefits, alternatives and personnel discussed with patient who consents to proceed. Sign in Communication: Completed Time Out: Team Confirms the Correct Patient, Correct Procedure; Cystoscopy, Correct Site and Site Marking, Correct Position (if applicable). Affirmation of Time Out: Yes Sign Out: Sign Out Discussion: Completed Physician: Laurie Badillo DO A urinalysis was performed revealing no evidence of infection. The benefits, risks, alternatives of the cystoscopy procedure and personnel were discussed with the patient. The verbal consent was obtained and the patient agrees to proceed. Procedure: The patient was placed on the procedure table in the supine position and prepped and draped in the usual sterile fashion. 2% Lidocaine Jelly was placed per urethra as an anesthetic in the standard fashion. Once adequate local anesthesia was achieved, the tip of the flexible cystoscope was carefully placed into the urethra under direct visual guidance. The scope was negotiated through the pendulous urethra to the level of the bulbar urethra with no evidence of stricture. The verumontanum came into view and the scope was negotiated through the prostatic urethra which showed evidence of bi lobar occlusive disease. The bladder was entered and careful mad[place] endoscopy was carried out. The posterior, superior and lateral her and dome of the bladder were all well visualized and the scope was retroflexed upon itself. The findings were consistent with severe bladder trabeculations. At the conclusion of the procedure, the flexible cystoscope was removed atraumatically. The patient tolerated the procedure without complications. Patient was given standard post-procedure instructions, and was directed to complete the course of oral antibiotics and increase oral fluid intake as directed. ASSESSMENT/PLAN: Marian Koch 52 year old male is here today for discussion and evaluation of Urine Retention, he has history of BPH and urine retention, for which he has been on Doxazosin 8 mg for, he cannot take Flomax due the need to have cataract surgery He is s/p 2 Renal Transplants last was 2009, and there is concern of renal damage from the obstruction. Cysto today with severely trabeculated bladder. PVR today 305 cc. Needs to resume CIC BID - QID. Needs UDS Consider Urolift, if LUCIANO on UDS ? Laurie Badillo DO [facility] 03-06-2022 Procedure note Procedure(s): CYSTOSCOPY CYSTOSCOPY PROCEDURE NOTE: Marian Koch is a 52 year old male who presents with urinary retention for cystoscopy. Pt ID verified with patient: Yes Procedure verified with patient: Yes Procedure confirmed with physician and patient support specialist: Yes Sign In History and Physical Exam reviewed and is unchanged. . Informed Consent Discussed: Yes. Risks, benefits, alternatives and personnel discussed with patient who consents to proceed. Sign in Communication: Completed Time Out: Team Confirms the Correct Patient, Correct Procedure; Cystoscopy, Correct Site and Site Marking, Correct Position (if applicable). Affirmation of Time Out: Yes Sign Out: Sign Out Discussion: Completed Physician: Laurie Badillo DO A urinalysis was performed revealing no evidence of infection. The benefits, risks, alternatives of the cystoscopy procedure and personnel were discussed with the patient. The verbal consent was obtained and the patient agrees to proceed. Procedure: The patient was placed on the procedure table in the supine position and prepped and draped in the usual sterile fashion. 2% Lidocaine Jelly was placed per urethra as an anesthetic in the standard fashion. Once adequate local anesthesia was achieved, the tip of the flexible cystoscope was carefully placed into the urethra under direct visual guidance. The scope was negotiated through the pendulous urethra to the level of the bulbar urethra with no evidence of stricture. The verumontanum came into view and the scope was negotiated through the prostatic urethra which showed evidence of bi lobar occlusive disease. The bladder was entered and careful madison endoscopy was carried out. The posterior, superior and lateral her and dome of the bladder were all well visualized and the scope was retroflexed upon itself. The findings were consistent with severe bladder trabeculations. At the conclusion of the procedure, the flexible cystoscope was removed atraumatically. The patient tolerated the procedure without complications. Patient was given standard post-procedure instructions, and was directed to complete the course of oral antibiotics and increase oral fluid intake as directed. ASSESSMENT/PLAN: Marian Koch 52 year old male is here today for discussion and evaluation of Urine Retention, he has history of BPH and urine retention, for which he has been on Doxazosin 8 mg for, he cannot take Flomax due the need to have cataract surgery He is s/p 2 Renal Transplants last was 2009, and there is concern of renal damage from the obstruction. Cysto today with severely trabeculated bladder. PVR today 305 cc. Needs to resume CIC BID - QID. Needs UDS Consider Urolift, if LUCIANO on UDS Laurie Badillo DO documented in this encounter [facility] 03-06-2022 Miscellaneous Notes Patient called in to make an appointment with a provider. He will be seen in [place] today by Dr. Badillo, and is aware he will most likely get a full visit bill from insurance due to being seen in [facility] this morning. Yamilet Gee Left vm pt needs an appt with any provider for long history of urinary retentiion. Pina documented in this encounter [facility] 03-06-2022 History of Present illness Narrative Images from the original note were not included. PATIENT INFO: Marian Koch 52 year old ( ) REFERRING PROVIDER: Diana Tate PCP: Diana Tate PA-C March 06, 2022 HPI: Marian Koch 52 year old male is here today for discussion and evaluation of Urine Retention, he has history of BPH and urine retention, for which he has been on Doxazosin 8 mg for, he cannot take Flomax due the need to have cataract surgery so cannot make that change. He is s/p 2 Renal Transplants last was 2009, and there is concern of renal damage from the obstruction. We discussed this and I will refer him to se Dr. Camacho , since he had seen him in the past for this same concern with doing a cystoscopy, he will likely need UDS and Cysto. LUTS: Obstructive - weak stream: yes, hesitancy: yes, Intermittency: yes, Double voiding yes post-void dribbling: yes incomplete emptying: yes Other symptoms: LABS: No results found for: TESTOST No results found for: TESTFREE PSA (ng/mL) Date Value 02/19/2022 0.17 Hematocrit (%) Date Value 06/05/2021 35.0 05/19/2019 38.9 MEDICATIONS: albuterol HFA (PROAIR HFA) 90 mcg/actuation inhaler Inhale 2 Puffs as instructed every 6 hours as needed. predniSONE (DELTASONE) 5 mg tablet Take 1 tablet by mouth once daily. umeclidinium-vilanterol (ANORO ELLIPTA) 62.5-25 mcg/actuation inhaler INHALE 1 INHALATION INSTRUCTED ONCE DAILY. albuterol (PROVENTIL) 2.5 mg /3 mL (0.083 %) nebulizer solution Use 3 mL via nebulizer every 4 hours as needed for Wheezing/Shortness of Breath. Use over 5-15minutes. ASTAGRAF XL 0.5 mg capsule Take 1 mg by mouth once daily. alendronate (FOSAMAX) 70 mg tablet Take 1 tablet by mouth once each week. Take with a full glass of water, on an empty stomach; do NOT lie down for 30minutes. DULoxetine (CYMBALTA) 30 mg capsule Take 1 capsule by mouth once daily. amLODIPine (NORVASC) 5 mg tablet Take 5 mg by mouth once daily. atorvastatin (LIPITOR) 80 mg tablet Take 80 mg by mouth daily at bedtime. carvedilol (COREG) 25 mg tablet Take 1 tablet by mouth twice daily with meals. omeprazole (PRILOSEC) 20 mg capsule Take 20 mg by mouth once daily. acetaminophen (TYLENOL) 500 mg tablet Take 500 mg by mouth every 8 hours as needed. mycophenolate mofetil (CELLCEPT) 250 mg capsule Take 500 mg by mouth twice daily. magnesium oxide 400 mg cap Take 1 capsule by mouth twice daily. Doxazosin (CARDURA XL) 8 mg ORAL 24 hr tablet Take 8 mg by mouth daily with breakfast. sulfamethoxazole-trimethoprim (BACTRIM) 400-80 mg ORAL per tablet Take 1 tablet by mouth once daily. ASPIRIN 81 MG TAB Take one(1) tablet daily. gabapentin (NEURONTIN) 300 mg capsule Take 2 capsules by mouth three times daily for 180 days. PAST MEDICAL HISTORY: PAST MEDICAL HISTORY Diagnosis Date CAD (coronary artery disease) 02/20/2010 Inactive since CABG. Last heart cath 2006, Dr. Demarco Summers 06/14/15 Lexiscan nuclear stress: no ischemia. Normal L and R sizes and systolic function. EF 56% 10/01/17ech. RV size NL, RVSF ocardiogram Dr. Dameon Mac: LV size NL, mild concenric LVH, EF 56%. RV size NL. RVSF NL. AI 1-2+ Claudication of both lower extremities ([facility]) 08/22/2017 02/05/[address] Vazqueznic: no stenosis left fem-pop bypass. Unable to get CHEL due to non-compressible vesels11/12/[address] Zavala [facility]: RIGHT: resting CHEL > 1.81, non-compressible arteries; TBI 0.40 = PAD; Right ankle: Moderate disease at rest. Right iliofemoral disease. Severe disease noted, post exercise, by tracings. LEFT SIDE: resting CHEL 1.81, non-compressible vessels, CHEL not accurate. COPD (chronic obstructive pulmonary disease) ([facility]) Coronary atherosclerosis of unspecified type of vessel, [place] or graft Coronary artery disease Current mild episode of major depressive disorder ([facility]) 02/05/2019 Depression 03/07/2012 DVT (deep venous thrombosis) ([facility]) End stage renal disease ([facility]) Due to blocked ureter as child GERD (gastroesophageal reflux disease) 03/05/2014 Hyperhomocysteinemia ([facility]) 12/08/2017 Hyperparathyroidism ([facility]) 12/08/2017 Secondary to renal failure. On Sensipar in remote past. Kidney dialysis 1988, and 2000 Neurogenic bladder VIC (obstructive sleep apnea) 08/04/2011 declines CPAP Pulmonary embolism ([facility]) 10-12 years ago Pulmonary nodules Foreign body reaction in pulmonary vasculature, ? cause. Extensive evaluation ruled out vasculitis, fungal inffection, pneumoconiosis. May have been from gortex graft .Resulted in multiple pulmonary nodules. Radiculopathy, lumbar region 11/28/2016 Renal failure 02/20/2010 Renal failure, chronic, stage 3 (moderate) (HCC) folllowing renal transplant Renal stones Steroid long-term use Transplant kidney 1993 and 2009 Failed in 2000(right in ', removed in '; left ') PAST SURGICAL HISTORY: PAST SURGICAL HISTORY Procedure Laterality Date CABG (4) VEIN GRAFTS & ARTERIAL GRAFT(S) 2004 COLONOSCOPY FLX DX W/COLLJ SPEC WHEN PFRMD 06/14/[address] Dodge PERICARDIAL WINDOW, DRAINAGE 1991 RENAL ALLOTRANSPLANTATION W/ GRAFT W/O RECIPIENT NEPHRECTOMY 1993, repeat 2019. FAMILY HISTORY: FAMILY HISTORY Problem Relation Age of Onset Arthritis Father Cancer Father Lung, 1990. Heart Father Heart Mother 2012. SOCIAL HISTORY: Social Connections: Not on file REVIEW OF SYSTEMS: GENERAL: No fever, chills, weight loss, or fatigue. ENMT: Negative CARDIOVASCULAR:NO CHEST PAIN, PALPITATIONS, ANKLE EDEMA RESPIRATORY: No chronic cough, wheezing, dyspnea, hemoptysis. GENITOURINARY: SEE HPI MUSCULOSKELETAL:NO CHRONIC BACK PAIN, ARTHRITIS, CHRONIC NECK PAIN SKIN: NO VARICOSE VEINS, RASH, ABNORMAL ITCHING HEME/LYMPH/IMMUNE:Negative for prolonged bleeding, bruising easily or swollen nodes NEUROLOGICAL: NO HEADACHES, NUMBNESS, SEIZURES, STROKE DIABETES: No All other systems reviewed and are negative PHYSICAL EXAMINATION: Blood pressure 110/66, pulse 66, temperature 37 C (98.6 F), temperature source Temporal, resp. rate 14, height 165.1 cm (5' 5 ), weight 63 kg (139 lb), SpO2 98 %. GENERAL: WNL nutrition, no deformities, healthy appearing NEURO: Awake, alert and oriented x 3 and Normal gait PSYCH: No signs of depression, anxiety, or agitation ENMT (Ear, Nose, Mouth, Throat): No masses, adenopathy, icterus. Thyroid nonpalpable RESP: NL effort, no retractions or purse-lip breathing. CV: No extremity swelling, varices, edema, pallor, erythema GASTROINTESTINAL: Soft, nontender, nondistended, no masses. HERNIAS: None SKIN: No rash, lesions No palpable lymphadenopathy MUSCULOSKELETAL: Extremities normal. No deformities, edema, clubbing or skin discoloration. PROBLEM LIST REVIEW: Yes LABS: Results for orders placed or performed in visit on 03/06/22 UA DIP, URINE (POC) Result Value Ref Range GLUCOSE UA (POCT) Negative Negative mg/dL BILIRUBIN UA (POCT) Negative Negative KETONE UA (POCT) Negative Negative mg/dL SPECIFIC GRAVITY UA (POCT) 1.015 1.005 - 1.030 HEMOGLOBIN/BLOOD UA (POCT) Negative Negative PH UA (POCT) 7.0 4.5 - 8.0 PROTEIN UA (POCT) Negative Negative mg/dL UROBILINOGEN UA (POCT) 0.2 Normal E.U./dL NITRITE UA (POCT) Negative Negative LEUKOCYTES UA (POCT) Negative Negative COLOR UA (POCT) Yellow CLARITY UA (POCT) Clear PROCEDURES: PVR:611 ml IMAGING: FINDINGS: Previous and post void views of the bladder demonstrate no extrinsic or intraluminal abnormalities noted within the limits of the examination. There is mild bladder wall trabeculation. Pre void volume measures 1177 cm3 with a moderate postvoid residual measuring 339 cm3. Survey of the the left transplanted kidney prevoid demonstrates mild to moderate pelvocaliectasis which resolves postvoid. Left ureteral jet is identified. IMPRESSION/PLAN: 1. Benign prostatic hyperplasia with urinary obstruction - UA DIP, URINE (POC) - POST VOID RESIDUAL > 611 ml > Consult with Denice/Johana ALVA urology I spent a total of 30 minutes on the date of the service which included preparing to see the patient, face to face patient care, completing clinical documentation, obtaining and/or reviewing separately obtained history, performing a medically appropriate examination, counseling and educating the patient/family/caregiver, ordering medications, tests, or procedures, and care coordination. MANDI Carrasco MT, PA-C CC Post Void Residual HPI: Marian Koch is a 52 year old male. The patient is here now for an appointment with MANDI Carrasco MT, SABINO. Procedure: Explained procedure to patient and verbalizes understanding. Performed a PVR. Patient urinated and instructed to empty bladder as much as possible just prior to having PVR done using bladder ultrasound scanner. Results of scan: 611 mL The patient tolerated the procedure well. Plan: Appointment with [facility]. documented in this encounter [facility] 02-19-2022 History of Present illness Narrative 52 year old male with c/o concerns over urination, peeing a lot, just dribbling . Frequent urination over last 6 months. See urology [facility], had cystoscopy, bled x 2 days after. Over last 5-6 months no fever, chills. Lately has been nauseated. Coronary artery disease of [place] artery of [place] heart with stable angina pectoris (hcc) Mixed hyperlipidemia Palpitations Cardiovascular interval hx: doing. Current meds: Doxazocin 8mg daily with breakfast ASA 81mg daily Chest pain, arm, jaw pain, neck, or upper back pain suggestive of angina: No. SOB: No Dyspnea with exertion: No orthopnea: No racing or irregular heartbeats: Occasional palpitations palpitations: occaisonal syncopal sx: No Unexplainable fatigue chronically fatigue, progressively worse but still working, hits couch immediately. 2 h nap Leg swelling: No Nausea: No diaphoresis: No Heartburn: No Claudication: still bothersome. Claudication with cramping 30-40 feet. Smoking: No Following Low cholesterol, high fiber diet? some If on statin: muscle aches? No If on statin: GI sx or diarrhea? No Additional history none. 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 Current symptoms: none unless stops for a few days. Last Mg level if on PPI chronically: 1.9 05/19/2019. Heartburn is controlled: Yes. Dysphagia: No. Bloody or black stools: No. Bowel changes: no. Last EGD and/or colonoscopy: 06/14/2021 WNL except non-bleeding hemorrhoids Current mild episode of major depressive disorder, unspecified whether recurrent ([facility]) Current medications: Duloxetine 30mg daily Chronic pain syndrome Claudication of both lower extremities ([facility]) 01/11/2022 vascular follow up [facility] Arterial Duplex RLE 12/19/21 1. Patent left to right fem-fem bypass graft with normal velocities. 2. PVR waveforms appear attenuated in the right ankle. 3. PVR waveforms appear attenuated in the left ankle. Iliotibial band syndrome, unspecified laterality: stable, doing well. Chronic left-sided low back pain with left-sided sciatica: still bothersome right sciatica. Radiculopathy, lumbar region Current medications: HISTORIES FAMILY HISTORY Problem Relation Age of Onset Arthritis Father Cancer Father Lung, 1990. Heart Father Heart Mother 2012. PAST MEDICAL HISTORY Diagnosis Date CAD (coronary artery disease) 02/20/2010 Inactive since CABG. Last heart cath 2006, Dr. Demarco Summers 06/14/15 Lexiscan nuclear stress: no ischemia. Normal L and R sizes and systolic function. EF 56% 10/01/17ech. RV size NL, RVSF ocardiogram Dr. Dameon Mac: LV size NL, mild concenric LVH, EF 56%. RV size NL. RVSF NL. AI 1-2+ Claudication of both lower extremities ([facility]) 08/22/2017 02/05/19 PVR Johana Vazqueznic: no stenosis left fem-pop bypass. Unable to get CHEL due to non-compressible vesels11/12/[address] Zavala [facility]: RIGHT: resting CHEL > 1.81, non-compressible arteries; TBI 0.40 = PAD; Right ankle: Moderate disease at rest. Right iliofemoral disease. Severe disease noted, post exercise, by tracings. LEFT SIDE: resting CHEL 1.81, non-compressible vessels, CHEL not accurate. COPD (chronic obstructive pulmonary disease) ([facility]) Coronary atherosclerosis of unspecified type of vessel, [place] or graft Coronary artery disease Current mild episode of major depressive disorder ([facility]) 02/05/2019 Depression 03/07/2012 DVT (deep venous thrombosis) (HCC) End stage renal disease (HCC) Due to blocked ureter as child GERD (gastroesophageal reflux disease) 03/05/2014 Hyperhomocysteinemia (HCC) 12/08/2017 Hyperparathyroidism (HCC) 12/08/2017 Secondary to renal failure. On Sensipar in remote past. Kidney dialysis 1988, and 2000 Neurogenic bladder VIC (obstructive sleep apnea) 08/04/2011 declines CPAP Pulmonary embolism (HCC) 10-12 years ago Pulmonary nodules Foreign body reaction in pulmonary vasculature, ? cause. Extensive evaluation ruled out vasculitis, fungal inffection, pneumoconiosis. May have been from gortex graft .Resulted in multiple pulmonary nodules. Radiculopathy, lumbar region 11/28/2016 Renal failure 02/20/2010 Renal failure, chronic, stage 3 (moderate) (HCC) folllowing renal transplant Renal stones Steroid long-term use Transplant kidney 1993 and 2009 Failed in 2000(right in , removed in ; left ') PAST SURGICAL HISTORY Procedure Laterality Date CABG (4) VEIN GRAFTS & ARTERIAL GRAFT(S) 2004 COLONOSCOP W/ OR W/O BRSH SPEC 06/14/[address] Dodge PERICARDIAL WINDOW, DRAINAGE 1991 RENAL ALLOTRANSPLANTATION W/ GRAFT W/O RECIPIENT NEPHRECTOMY 1993, repeat 2019. Social History Tobacco Use Smoking status: Former Smoker Packs/day: 1.25 Years: 15.00 Pack years: 18.75 Types: Cigarettes Quit date: 09/06/2011 Years since quittin.4 Smokeless tobacco: Current User Types: Chew Vaping Use Vaping Use: Never used Substance Use Topics Alcohol use: No Drug use: No ACTIVE PROBLEM LIST Renal Failure, Chronic, Stage 3 (Moderate) (Hcc) Cad (Coronary Artery Disease) Dvt (Deep Venous Thrombosis) (Hcc) Vic (Obstructive Sleep Apnea) Depression H/O Kidney Transplant Gerd (Gastroesophageal Reflux Disease) Chronic Left-Sided Low Back Pain With Left-Sided Sciatica Bilateral Leg Pain Iliotibial Band Syndrome Radiculopathy, Lumbar Region Claudication of Both Lower Extremities (Hcc) Neurogenic Bladder Hyperparathyroidism (Hcc) Hyperhomocysteinemia (Hcc) Pulmonary Nodules Renal Stones Rlq Abdominal Pain Immunodeficiency Due to Treatment With Immunosuppressive Medication (Hcc) Coronary Artery Disease of [place] Artery of [place] Heart With Stable Angina Pectoris (Hcc) Chronic Pain Syndrome Other Osteoporosis Without Current Pathological Fracture Current Mild Episode of Major Depressive Disorder (Hcc) Copd (Chronic Obstructive Pulmonary Disease) (Hcc) Mixed Hyperlipidemia Palpitations Current Outpatient Medications Medication Sig Dispense Refill fluticasone (FLONASE) 50 mcg/actuation nasal spray Use 2 Sprays in each nostril once daily. Rinse mouth after use. (Patient not taking: Reported on 05/17/2021 ) 1 Bottle 0 cetirizine (ZYRTEC) 10 mg tablet Take 1 tablet by mouth once daily. 30 tablet 0 albuterol HFA (PROAIR HFA) 90 mcg/actuation inhaler Inhale 2 Puffs as instructed every 6 hours as needed. 18 g 2 predniSONE (DELTASONE) 5 mg tablet Take 1 tablet by mouth once daily. umeclidinium-vilanterol (ANORO ELLIPTA) 62.5-25 mcg/actuation inhaler INHALE 1 INHALATION INSTRUCTED ONCE DAILY. 1 Each 11 albuterol (PROVENTIL) 2.5 mg /3 mL (0.083 %) nebulizer solution Use 3 mL via nebulizer every 4 hours as needed for Wheezing/Shortness of Breath. Use over 5-15minutes. 1 Package 2 gabapentin (NEURONTIN) 300 mg capsule Take 2 capsules by mouth three times daily for 180 days. 180 capsule 1 ASTAGRAF XL 0.5 mg capsule Take 1 mg by mouth once daily. 11 alendronate (FOSAMAX) 70 mg tablet Take 1 tablet by mouth once each week. Take with a full glass of water, on an empty stomach; do NOT lie down for 30minutes. 12 tablet 3 DULoxetine (CYMBALTA) 30 mg capsule Take 1 capsule by mouth once daily. 90 capsule 1 amLODIPine (NORVASC) 5 mg tablet Take 5 mg by mouth once daily. atorvastatin (LIPITOR) 80 mg tablet Take 80 mg by mouth daily at bedtime. carvedilol (COREG) 25 mg tablet Take 1 tablet by mouth twice daily with meals. 3 omeprazole (PRILOSEC) 20 mg capsule Take 20 mg by mouth once daily. acetaminophen (TYLENOL) 500 mg tablet Take 500 mg by mouth every 8 hours as needed. mycophenolate mofetil (CELLCEPT) 250 mg capsule Take 500 mg by mouth twice daily. 0 magnesium oxide 400 mg cap Take 1 capsule by mouth twice daily. 0 Doxazosin (CARDURA XL) 8 mg ORAL 24 hr tablet Take 8 mg by mouth daily with breakfast. 0 sulfamethoxazole-trimethoprim (BACTRIM) 400-80 mg ORAL per tablet Take 1 tablet by mouth once daily. 0 ASPIRIN 81 MG TAB Take one(1) tablet daily. 0 0 No current facility-administered medications for this visit. COVID-19 VACCINE(1) Never done HEPATITIS C SCREENING Never done HIV SCREENING Never done ADULT PREVNAR Never done DTAP,TDAP,TD(1 - Tdap) due on 10/07/2009 TWO PNEUMOVAX 5 YEARS APART PRIOR TO AGE 65(2) due on 12/05/2016 SHINGRIX VACCINE(1 of 2) Never done LDL CHOLESTEROL due on 04/25/2021 ANNUAL PCP TEAM CHRONIC DISEASE VISIT due on 11/25/2021 EXAM: BP 120/68 Pulse 68 Wt 64.4 kg (142 lb) SpO2 98% BMI 23.63 kg/m Pleasant adult in no acute distress. Alert and oriented all spheres. Normal affect and cognition. Speech normal. No deficits to learning or comprehension. Skin warm, dry, pink to lips and nailbeds. Normal turgor. Respirations regular and unlabored. HEENT: NCAT. No scleral icterus or conjunctival injection. TM's clear. Nose and oropharynx free from injection or lesion. Oral membranes moist and pink. No cervical lymph nodes. Thyroid non-tender, no masses, or enlargement. Carotids pulses 2+/4+ without bruits. No JVD with HOB at 30 degrees. Chest is normal shape. Lungs are clear to all pierson with good air exchange through out. HRRR without murmur or gallop. No lifts, heaves, or rubs. Abdomen: active bowel sounds throughout, soft, nontender, no masses or organomegaly. No CVAT. Penis circumcised. Testicles descended bilaterally. No masses or nodules. No hernias. Rectal: normal tone, no internal or external lesions. Prostate 1/4+ size,no nodules, non-tender. No nodules. Stool light brown GUAIAC sent to lab Extrem: no clubbing or cyanosis. Edema: none. Extremities are warm and pink with prompt capillary refill. ASSESSMENT/PLAN: 1. BPH with obstruction/lower urinary tract symptoms - ICD9: 600.01, 599.69, ICD10: N40.1, N13.8 (primary diagnosis) - PSA/PROSTSPECAG DIAG - CONSULT TO UROLOGY - OCCULT BLD EXAM-DIAG - US PELVIS BLADDER 2. Coronary artery disease of [place] artery of [place] heart with stable angina pectoris (HCC) - ICD9: 414.01, 413.9, ICD10: I25.118 Stable, asymptomatic 3. Mixed hyperlipidemia - ICD9: 272.2, ICD10: E78.2 - good control - Continue current medication. - Encouraged following a low fat, low cholesterol diet. 4. Palpitations - ICD9: 785.1, ICD10: R00.2 Stable, o current sx 5. Renal failure, chronic, stage 3 (moderate) (HCC) - ICD9: 585.3, ICD10: N18.30 Need to make sure no urinary residual- at risk - US PELVIS BLADDER 6. H/O kidney transplant - ICD9: V42.0, ICD10: Z94.0 - US PELVIS BLADDER 7. Neurogenic bladder - ICD9: 596.54, ICD10: N31.9 - US PELVIS BLADDER 8. Chronic obstructive pulmonary disease, unspecified COPD type (HCC) - ICD9: 496, ICD10: J44.9 stable 9. VIC (obstructive sleep apnea) - ICD9: 327.23, ICD10: G47.33 No CPAP- declines CPAP 10. Gastroesophageal reflux disease without esophagitis - ICD9: 530.81, ICD10: K21.9 - Discussed lifestyle modifications including limiting caffeine, no meals three hours before sleep and head of bed elevation - MAGNESIUM BLD 11. Current mild episode of major depressive disorder, unspecified whether recurrent (HCC) - ICD9: 296.21, ICD10: F32.0 stable 12. Chronic pain syndrome - ICD9: 338.4, ICD10: G89.4 Managing well. 13. Hyperhomocysteinemia (HCC) - ICD9: 270.4, ICD10: E72.11 14. Claudication of both lower extremities (HCC) - ICD9: 443.9, ICD10: I73.9 stable 15. Iliotibial band syndrome, unspecified laterality - ICD9: 728.89, ICD10: M76.30 Discussed PT: doing stretches at home. Declined consult. 16. Chronic left-sided low back pain with left-sided sciatica - ICD9: 724.2, 724.3, 338.29, ICD10: M54.42, G89.29 Chronic low back pain unchanged 17. Radiculopathy, lumbar region - ICD9: 724.4, ICD10: M54.16 Chronic low back pain F/u 6 months and as needed Diana Tate PA-C documented in this encounter [facility] documented as of this encounter (statuses as of 03/06/2022) [facility]2021 History of Past illness Narrative* Problem Noted Date Resolved Date Screen for colon cancer 06/09/2021 06/14/20 21 Dialysis patient 02/20/2010 11/28/2012 documented as of this encounter (statuses as of 03/06/2022) [facility] History of Past illness Narrative* Problem Noted Date Resolved Date Screen for colon cancer 06/09/2021 06/14/20 21 Dialysis patient 02/20/2010 11/28/2012 documented as of this encounter (statuses as of 03/06/2022) [facility] History of Past illness Narrative* Problem Noted Date Resolved Date Screen for colon cancer 06/09/2021 06/14/20 21 Dialysis patient 02/20/2010 11/28/2012 documented as of this encounter (statuses as of 03/07/2022) [facility] History of Past illness Narrative* Problem Noted Date Resolved Date Screen for colon cancer 06/09/2021 06/14/20 21 Dialysis patient 02/20/2010 11/28/2012 documented as of this encounter (statuses as of 03/08/2022) [facility] History of Past illness Narrative* Problem Noted Date Resolved Date Screen for colon cancer 06/09/2021 06/14/20 21 Dialysis patient 02/20/2010 11/28/2012 documented as of this encounter (statuses as of 04/08/2022) [facility] History of Past illness Narrative* Problem Noted Date Resolved Date Screen for colon cancer 06/09/2021 06/14/20 21 Dialysis patient 02/20/2010 11/28/2012 documented as of this encounter (statuses as of 04/20/2022) [address]03-2021 History of Past illness Narrative* Problem Noted Date Resolved Date Screen for colon cancer 06/09/2021 06/14/20 21 Dialysis patient 02/20/2010 11/28/2012 documented as of this encounter (statuses as of 05/04/2022) [address]03-2021 History of Past illness Narrative* Problem Noted Date Resolved Date Screen for colon cancer 06/09/2021 06/14/20 21 Dialysis patient 02/20/2010 11/28/2012 documented as of this encounter (statuses as of 05/17/2022) [address]03-2021 History of Past illness Narrative* Problem Noted Date Resolved Date Screen for colon cancer 06/09/2021 06/14/20 21 Dialysis patient 02/20/2010 11/28/2012 documented as of this encounter (statuses as of 05/29/2022) [address]03-2021 History of Past illness Narrative* Problem Noted Date Resolved Date Screen for colon cancer 06/09/2021 06/14/20 21 Dialysis patient 02/20/2010 11/28/2012 documented as of this encounter (statuses as of 07/02/2022) [address]03-2021 History of Past illness Narrative* Problem Noted Date Resolved Date Screen for colon cancer 06/09/2021 06/14/20 21 Dialysis patient 02/20/2010 11/28/2012 documented as of this encounter (statuses as of 07/23/2022) [address]03-2021 History of Past illness Narrative* Problem Noted Date Resolved Date Screen for colon cancer 06/09/2021 06/14/20 21 Dialysis patient 02/20/2010 11/28/2012 documented as of this encounter (statuses as of 09/15/2022) [address]03-2021 History of Past illness Narrative* Problem Noted Date Resolved Date Screen for colon cancer 06/09/2021 06/14/20 21 Dialysis patient 02/20/2010 11/28/2012 documented as of this encounter (statuses as of 09/21/2022) [address]03-2021 History of Past illness Narrative* Problem Noted Date Resolved Date Screen for colon cancer 06/09/2021 06/14/20 21 Dialysis patient 02/20/2010 11/28/2012 documented as of this encounter (statuses as of 09/27/2022) [facility] History of Past illness Narrative* Problem Noted Date Resolved Date Screen for colon cancer 06/09/2021 06/14/20 21 Dialysis patient 02/20/2010 11/28/2012 documented as of this encounter (statuses as of 10/11/2022) [facility] History of Past illness Narrative* Problem Noted Date Resolved Date Screen for colon cancer 06/09/2021 06/14/20 21 Dialysis patient 02/20/2010 11/28/2012 documented as of this encounter (statuses as of 10/18/2022) [facility] History of Past illness Narrative* Problem Noted Date Resolved Date Screen for colon cancer 06/09/2021 06/14/20 21 Dialysis patient 02/20/2010 11/28/2012 documented as of this encounter (statuses as of 10/22/2022) [facility] History of Past illness Narrative* Problem Noted Date Resolved Date Screen for colon cancer 06/09/2021 06/14/20 21 Dialysis patient 02/20/2010 11/28/2012 documented as of this encounter (statuses as of 10/23/2022) [facility] History of Past illness Narrative* Problem Noted Date Resolved Date Screen for colon cancer 06/09/2021 06/14/20 21 Dialysis patient 02/20/2010 11/28/2012 documented as of this encounter (statuses as of 10/23/2022) [facility] History of Past illness Narrative* Problem Noted Date Resolved Date Screen for colon cancer 06/09/2021 06/14/20 21 Dialysis patient 02/20/2010 11/28/2012 documented as of this encounter (statuses as of 10/23/2022) [facility] History of Past illness Narrative* Problem Noted Date Resolved Date Screen for colon cancer 06/09/2021 06/14/20 21 Dialysis patient 02/20/2010 11/28/2012 documented as of this encounter (statuses as of 10/25/2022) [facility] History of Past illness Narrative* Problem Noted Date Resolved Date Screen for colon cancer 06/09/2021 06/14/20 21 Dialysis patient 02/20/2010 11/28/2012 documented as of this encounter (statuses as of 10/31/2022) [address]-2021 History of Past illness Narrative* Problem Noted Date Resolved Date Screen for colon cancer 06/09/2021 06/14/20 21 Dialysis patient 02/20/2010 11/28/2012 documented as of this encounter (statuses as of 11/06/2022) [address]03-2021 History of Past illness Narrative* Problem Noted Date Resolved Date Screen for colon cancer 06/09/2021 06/14/20 21 Dialysis patient 02/20/2010 11/28/2012 documented as of this encounter (statuses as of 11/08/2022) [address]03-2021 History of Past illness Narrative* Problem Noted Date Resolved Date Screen for colon cancer 06/09/2021 06/14/20 21 Dialysis patient 02/20/2010 11/28/2012 documented as of this encounter (statuses as of 11/08/2022) [address]03-2021 History of Past illness Narrative* Problem Noted Date Resolved Date Screen for colon cancer 06/09/2021 06/14/20 21 Dialysis patient 02/20/2010 11/28/2012 documented as of this encounter (statuses as of 11/16/2022) [facility] History of Past illness Narrative* Problem Noted Date Resolved Date Screen for colon cancer 06/09/2021 06/14/20 21 Dialysis patient 02/20/2010 11/28/2012 documented as of this encounter (statuses as of 12/06/2022) [facility] History of Past illness Narrative* Problem Noted Date Resolved Date Screen for colon cancer 06/09/2021 06/14/20 21 Dialysis patient 02/20/2010 11/28/2012 documented as of this encounter (statuses as of 12/07/2022) [address]03-2021 History of Past illness Narrative* Problem Noted Date Resolved Date Screen for colon cancer 06/09/2021 06/14/20 21 Dialysis patient 02/20/2010 11/28/2012 documented as of this encounter (statuses as of 12/12/2022) [address]03-2021 History of Past illness Narrative* Problem Noted Date Resolved Date Screen for colon cancer 06/09/2021 06/14/20 21 Dialysis patient 02/20/2010 11/28/2012 documented as of this encounter (statuses as of 12/17/2022) [address]03-2021 History of Past illness Narrative* Problem Noted Date Resolved Date Screen for colon cancer 06/09/2021 06/14/20 21 Dialysis patient 02/20/2010 11/28/2012 documented as of this encounter (statuses as of 12/18/2022) [address]03-2021 History of Past illness Narrative* Problem Noted Date Resolved Date Screen for colon cancer 06/09/2021 06/14/20 21 Dialysis patient 02/20/2010 11/28/2012 documented as of this encounter (statuses as of 12/21/2022) [address]03-2021 History of Past illness Narrative* Problem Noted Date Resolved Date Screen for colon cancer 06/09/2021 06/14/20 21 Dialysis patient 02/20/2010 11/28/2012 documented as of this encounter (statuses as of 12/27/2022) [address]03-2021 History of Past illness Narrative* Problem Noted Date Resolved Date Screen for colon cancer 06/09/2021 06/14/20 21 Dialysis patient 02/20/2010 11/28/2012 documented as of this encounter (statuses as of 12/27/2022) [address]03-2021 History of Past illness Narrative* Problem Noted Date Resolved Date Screen for colon cancer 06/09/2021 06/14/20 21 Dialysis patient 02/20/2010 11/28/2012 documented as of this encounter (statuses as of 01/04/2023) [address]03-2021 History of Past illness Narrative* Problem Noted Date Resolved Date Screen for colon cancer 06/09/2021 06/14/20 21 Dialysis patient 02/20/2010 11/28/2012 documented as of this encounter (statuses as of 01/04/2023) [address]03-2021 History of Past illness Narrative* Problem Noted Date Resolved Date Screen for colon cancer 06/09/2021 06/14/20 21 Dialysis patient 02/20/2010 11/28/2012 documented as of this encounter (statuses as of 01/19/2023) [facility]09-03-2021 History of Past illness Narrative* Problem Noted Date Resolved Date Screen for colon cancer 06/09/2021 06/14/20 21 Dialysis patient 02/20/2010 11/28/2012 documented as of this encounter (statuses as of 01/21/2023) [facility]09-03-2021 History of Past illness Narrative* Problem Noted Date Resolved Date Screen for colon cancer 06/09/2021 06/14/20 21 Dialysis patient 02/20/2010 11/28/2012 documented as of this encounter (statuses as of 01/25/2023) [facility]09-03-2021 History of Past illness Narrative* Problem Noted Date Resolved Date Screen for colon cancer 06/09/2021 06/14/20 21 Dialysis patient 02/20/2010 11/28/2012 documented as of this encounter (statuses as of 01/25/2023) [facility]-03-2021 History of Past illness Narrative* Problem Noted Date Resolved Date Screen for colon cancer 06/09/2021 06/14/20 21 Dialysis patient 02/20/2010 11/28/2012 documented as of this encounter (statuses as of 01/29/2023) [facility]-03-2021 History of Past illness Narrative* Problem Noted Date Resolved Date Screen for colon cancer 06/09/2021 06/14/20 21 Dialysis patient 02/20/2010 11/28/2012 documented as of this encounter (statuses as of 02/12/2023) [facility]-03[facility]2021 History of Past illness Narrative* Problem Noted Date Resolved Date Screen for colon cancer 06/09/2021 06/14/20 21 Dialysis patient 02/20/2010 11/28/2012 documented as of this encounter (statuses as of 03/08/2023) [facility]2021 History of Past illness Narrative* Problem Noted Date Resolved Date Screen for colon cancer 06/09/2021 06/14/20 21 Dialysis patient 02/20/2010 11/28/2012 documented as of this encounter (statuses as of 03/20/2023) [facility]2021 History of Past illness Narrative* Problem Noted Date Resolved Date Screen for colon cancer 06/09/2021 06/14/20 21 Dialysis patient 02/20/2010 11/28/2012 documented as of this encounter (statuses as of 03/22/2023) [facility]2021 History of Past illness Narrative* Problem Noted Date Resolved Date Screen for colon cancer 06/09/2021 06/14/20 21 Dialysis patient 02/20/2010 11/28/2012 documented as of this encounter (statuses as of 03/25/2023) [facility]2021 History of Past illness Narrative* Problem Noted Date Resolved Date Screen for colon cancer 06/09/2021 06/14/20 21 Dialysis patient 02/20/2010 11/28/2012 documented as of this encounter (statuses as of 03/28/2023) [facility]21 History of Past illness Narrative* Problem Noted Date Resolved Date Screen for colon cancer 06/09/2021 06/14/20 21 Dialysis patient 02/20/2010 11/28/2012 documented as of this encounter (statuses as of 03/29/2023) [facility]21 History of Past illness Narrative* Problem Noted Date Diagnosed Date Resolved Date Screen for colon cancer 06/09/2021 09/0 05/2021 Dialysis patient 02/20/2010 11/28/2012 documented as of this encounter (statuses as of 06/27/2023) [facility] History of Past illness Narrative* Problem Noted Date Diagnosed Date Resolved Date Screen for colon cancer 06/09/2021 09/0 05/2021 Dialysis patient 02/20/2010 11/28/2012 documented as of this encounter (statuses as of 08/06/2023) [facility]05-04-2021 Evaluation note* Diagnosis Stage 3 chronic kidney disease, unspecified whether stage 3a or 3b CKD 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) Peripheral vascular disease, unspecified documented in this encounter [facility] Work Phone: Evaluation note* Diagnosis Benign prostatic hyperplasia with urinary obstruction- Primary Other age-related cataract of both eyes H/O kidney transplant Kidney replaced by transplant [facility] Benign prostatic hyperplasia with urinary obstruction- Primary Neurogenic bladder Neurogenic bladder, NOS [facility] Diagnosis BPH with obstruction/lower urinary tract symptoms- Primary Hypertrophy of prostate with urinary obstruction and other lower urinary tract symptoms (LUTS) Coronary artery disease of [place] artery of [place] heart with stable angina pectoris (HCC) Mixed hyperlipidemia Palpitations Renal failure, chronic, stage 3 (moderate) (HCC) H/O kidney transplant Kidney replaced by transplant Neurogenic bladder Neurogenic bladder, NOS Chronic obstructive pulmonary disease, unspecified COPD type (HCC) VIC (obstructive sleep apnea) Obstructive sleep apnea (adult) (pediatric) Gastroesophageal reflux disease without esophagitis Esophageal reflux Current mild episode of major depressive disorder, unspecified whether recurrent (HCC) Chronic pain syndrome 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 Claudication of both lower extremities (HCC) Iliotibial band syndrome, unspecified laterality Chronic left-sided low back pain with left-sided sciatica Radiculopathy, lumbar region Thoracic or lumbosacral neuritis or radiculitis, unspecified [facility] Diagnosis Benign prostatic hyperplasia with urinary obstruction- Primary [facility] Diagnosis Benign prostatic hyperplasia with urinary obstruction- Primary [facility] Diagnosis Acute pain of left shoulder- Primary Abnormal x-ray Other nonspecific (abnormal) findings on radiological and other examinations of body structure [facility] Diagnosis Neurogenic bladder- Primary Neurogenic bladder, NOS [facility] Diagnosis Traumatic tear of left rotator cuff, unspecified tear extent, initial encounter- Primary Acute pain of left shoulder [facility] Diagnosis Acute pain of left shoulder- Primary Impingement syndrome of left shoulder Other affections of shoulder region, not elsewhere classified [facility] Diagnosis Bronchitis- Primary Bronchitis, not specified as acute or chronic [facility] Diagnosis Coronary artery disease involving [place] coronary artery of [place] heart without angina pectoris- Primary Mixed hyperlipidemia Claudication of both lower extremities (HCC) Chronic obstructive pulmonary disease, unspecified COPD type (HCC) Current mild episode of major depressive disorder, unspecified whether recurrent (HCC) Gastroesophageal reflux disease without esophagitis Esophageal reflux H/O kidney transplant Kidney replaced by transplant Renal failure, chronic, stage 3 (moderate) (HCC) Hyperparathyroidism (HCC) Hyperparathyroidism, unspecified 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 Traumatic incomplete tear of left rotator cuff, subsequent encounter Other osteoporosis without current pathological fracture Other osteoporosis Benign prostatic hyperplasia with urinary obstruction [facility] Diagnosis Coronary artery disease involving [place] coronary artery of [place] heart without angina pectoris Claudication of both lower extremities (HCC) Mixed hyperlipidemia Traumatic incomplete tear of left rotator cuff, subsequent encounter [facility] Diagnosis Traumatic incomplete tear of left rotator cuff, subsequent encounter- Primary [facility] Diagnosis Traumatic incomplete tear of left rotator cuff, subsequent encounter- Primary [facility] Diagnosis Traumatic incomplete tear of left rotator cuff, subsequent encounter- Primary [facility] Diagnosis Traumatic incomplete tear of left rotator cuff, subsequent encounter- Primary [facility] Diagnosis Chronic left shoulder pain- Primary Pain in joint, shoulder region Acute pain of left shoulder [facility] Diagnosis Hyperparathyroidism (HCC)- Primary Hyperparathyroidism, unspecified Renal failure, chronic, stage 3 (moderate) ([facility]) Other osteoporosis without current pathological fracture [facility] Diagnosis Traumatic incomplete tear of left rotator cuff, subsequent encounter- Primary [facility] Diagnosis Traumatic incomplete tear of left rotator cuff, subsequent encounter- Primary [facility] Diagnosis Chronic left shoulder pain- Primary Pain in joint, shoulder region Impingement syndrome of left shoulder Other affections of shoulder region, not elsewhere classified Adhesive capsulitis of left shoulder Adhesive capsulitis of shoulder Nontraumatic incomplete tear of left rotator cuff Partial tear of rotator cuff [facility] Diagnosis Chronic left shoulder pain- Primary Pain in joint, shoulder region Traumatic incomplete tear of left rotator cuff, initial encounter Impingement syndrome of left shoulder Other affections of shoulder region, not elsewhere classified Traumatic tear of left rotator cuff, unspecified tear extent, initial encounter Bursitis of left shoulder Disorders of bursae and tendons in shoulder region, unspecified Tendinitis of left shoulder Disorders of bursae and tendons in shoulder region, unspecified [facility] Diagnosis Traumatic incomplete tear of left rotator cuff, initial encounter- Primary Impingement syndrome of left shoulder Other affections of shoulder region, not elsewhere classified Bursitis of left shoulder Disorders of bursae and tendons in shoulder region, unspecified Traumatic tear of left rotator cuff, unspecified tear extent, initial encounter Tendinitis of left shoulder Disorders of bursae and tendons in shoulder region, unspecified Traumatic incomplete tear of left rotator cuff, initial encounter Impingement syndrome of left shoulder Other affections of shoulder region, not elsewhere classified Bursitis of left shoulder Disorders of bursae and tendons in shoulder region, unspecified Traumatic tear of left rotator cuff, unspecified tear extent, initial encounter Tendinitis of left shoulder Disorders of bursae and tendons in shoulder region, unspecified [facility]* Diagnosis Pre-operative examination- Primary Preoperative examination, unspecified Benign prostatic hyperplasia with urinary obstruction Neurogenic bladder Neurogenic bladder, NOS VIC (obstructive sleep apnea) Obstructive sleep apnea (adult) (pediatric) Coronary artery disease involving [place] coronary artery of [place] heart without angina pectoris Claudication of both lower extremities (HCC) Chronic obstructive pulmonary disease, unspecified COPD type ([facility]) Abnormal EKG Nonspecific abnormal electrocardiogram (ECG) (EKG) Current mild episode of major depressive disorder, unspecified whether recurrent ([facility]) Deep vein thrombosis (DVT) of proximal lower extremity, unspecified chronicity, unspecified laterality ([facility]) VHD (valvular heart disease) Endocarditis, valve unspecified, unspecified cause Pulmonary hypertension (HCC) Other chronic pulmonary heart diseases Hyperparathyroidism (HCC) Hyperparathyroidism, unspecified H/O kidney transplant Kidney replaced by transplant Gastroesophageal reflux disease without esophagitis Esophageal reflux Mixed hyperlipidemia Other osteoporosis without current pathological fracture Pulmonary nodules Other nonspecific abnormal finding of lung field Traumatic incomplete tear of left rotator cuff, initial encounter Impingement syndrome of left shoulder Other affections of shoulder region, not elsewhere classified Bursitis of left shoulder Disorders of bursae and tendons in shoulder region, unspecified Traumatic tear of left rotator cuff, unspecified tear extent, initial encounter Tendinitis of left shoulder Disorders of bursae and tendons in shoulder region, unspecified [facility] Diagnosis Coronary artery disease involving [place] coronary artery of [place] heart without angina pectoris- Primary Essential hypertension Unspecified essential hypertension Dyslipidemia Other and unspecified hyperlipidemia Pre-operative cardiovascular examination Traumatic incomplete tear of left rotator cuff, initial encounter Impingement syndrome of left shoulder Other affections of shoulder region, not elsewhere classified Bursitis of left shoulder Disorders of bursae and tendons in shoulder region, unspecified Traumatic tear of left rotator cuff, unspecified tear extent, initial encounter Tendinitis of left shoulder Disorders of bursae and tendons in shoulder region, unspecified [facility] Diagnosis Coronary artery disease involving [place] coronary artery of [place] heart without angina pectoris Essential hypertension Unspecified essential hypertension Dyslipidemia Other and unspecified hyperlipidemia Pre-operative cardiovascular examination Traumatic incomplete tear of left rotator cuff, initial encounter Impingement syndrome of left shoulder Other affections of shoulder region, not elsewhere classified Bursitis of left shoulder Disorders of bursae and tendons in shoulder region, unspecified Traumatic tear of left rotator cuff, unspecified tear extent, initial encounter Tendinitis of left shoulder Disorders of bursae and tendons in shoulder region, unspecified [facility]* Diagnosis Postoperative pain- Primary Other acute postoperative pain documented in this encounter [facility]* Diagnosis Postoperative pain Other acute postoperative pain documented in this encounter [facility]* Diagnosis S/P left rotator cuff repair- Primary S/P shoulder surgery Other postprocedural status documented in this encounter [facility]* Diagnosis Coronary artery disease involving [place] coronary artery of [place] heart without angina pectoris Claudication of both lower extremities ([facility]) Mixed hyperlipidemia documented in this encounter [facility]* Diagnosis S/P left rotator cuff repair- Primary S/P shoulder surgery Other postprocedural status documented in this encounter [facility]* Diagnosis S/P shoulder surgery- Primary Other postprocedural status documented in this encounter [facility]* Diagnosis S/P shoulder surgery- Primary Other postprocedural status documented in this encounter [facility]* Diagnosis S/P shoulder surgery- Primary Other postprocedural status documented in this encounter [facility]* Diagnosis Sore throat- Primary Acute pharyngitis COPD with exacerbation (HCC) Obstructive chronic bronchitis with exacerbation documented in this encounter [facility]* Diagnosis Atherosclerosis of [place] artery of both lower extremities with intermittent claudication ([facility]) documented in this encounter [facility]* Diagnosis S/P shoulder surgery- Primary Other postprocedural status documented in this encounter [facility]* Diagnosis Postoperative pain- Primary Other acute postoperative pain S/P left rotator cuff repair S/P shoulder surgery Other postprocedural status Chronic left shoulder pain Pain in joint, shoulder region Traumatic incomplete tear of left rotator cuff, initial encounter Impingement syndrome of left shoulder Other affections of shoulder region, not elsewhere classified [facility] Diagnosis Atherosclerosis of artery of extremity with intermittent claudication (HCC)- Primary [facility]* Diagnosis S/P left rotator cuff repair- Primary [facility] Diagnosis Acute COVID-19- Primary COPD with exacerbation (HCC) Obstructive chronic bronchitis with exacerbation documented in this encounter [facility]* Diagnosis Kidney replaced by transplant- Primary Essential hypertension Unspecified essential hypertension Vitamin D deficiency Hyperparathyroidism ([facility]) Hyperparathyroidism, unspecified Benign prostatic hyperplasia without lower urinary tract symptoms Osteoporosis with current pathological fracture, unspecified osteoporosis type, initial encounter Stage 3b chronic kidney disease ([facility]) documented in this encounter [facility] Work Phone: History of Present illness Narrative* This is 51 yo male with 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 His first transplant occurred in 1993 and lasted until 1999, then he underwent a 2nd kidney transplant in 2009 froma donor after cardiac . He was on PD starting in 1985 and was also on dialysis in between the two transplant episodes. He had delayed graft function and has a baseline cr of 2.0 . Patient is here to follow up S/P kidney transplant surgery. * Patient is doing well overall. No new complaints. Denied chest pain, SOB, ROBERTSON, Palpitation. Normal urination and bowel movement. Normal gait and no weakness of arms/legs. No cough, runny nose, sore throat, cold symptoms, or rash. No hearing loss. Normal vision.No problems with his sleep, mood and function. No recent infection, hospitalization, surgery or ER visits. * ROS : Review of system (14 systems) was done. See HPI. Otherwise were negative. * Past medical Hx, Past Surgical Hx were reviewed. Pertinent history was mentioned in HPI. 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 His first transplant occurred in 1993 and lasted until 1999, then he underwent a 2nd kidney transplant in 2010 froma donor after cardiac . He was on PD starting in 1985 and was also on dialysis in between the two transplant episodes. He had delayed graft function and has a baseline cr of 2.0 . Patient is here to follow up S/P kidney transplant surgery. * Patient is doing well overall. No new complaints. Denied chest pain, SOB, ROBERTSON, Palpitation. Normal urination and bowel movement. Normal gait and no weakness of arms/legs. No cough, runny nose, sore throat, cold symptoms, or rash. No hearing loss. Normal vision.No problems with his sleep, mood and function. No recent infection, hospitalization, surgery or ER visits. * ROS : Review of system (14 systems) was done. See HPI. Otherwise were negative. * Past medical Hx, Past Surgical Hx were reviewed. Pertinent history was mentioned in HPI. 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 His first transplant occurred in 1993 and lasted until 1999, then he underwent a 2nd kidney transplant in 2010 from a donor after cardiac . He was on PD starting in 1985 and was also on dialysis in between the two transplants. He had delayed graft function and recovered . Patient is here to follow up post renal transplant. * Has been following with the primary care physician regularly for routine screening tests. * Since April 2021 he has been doing straight caths twice a day for urinary retention. Seen by urology last year and has been following with them on regular basis. Currently on doxazosin. No recentUTIs. * Blood pressure is fairly controlled at home with systolics ranging in 120s to 130s. * Also has been following with dermatology every 6 months. * Patient is doing well overall. No new complaints. Denied chest pain, SOB, ROBERTSON, Palpitation. Normal urination and bowel movement. Normal gait and no weakness of arms/legs. No cough, runny nose, sore throat, cold symptoms, or rash. No hearing loss. Normal vision.No problems with his sleep, mood and function. No recent infection, hospitalization, surgery or ER visits. 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 His first transplant occurred in 1993 and lasted until 1999, then he underwent a 2nd kidney transplant in 2009 froma donor after cardiac . He was on PD starting in 1985 and was also on dialysis in between the two transplant episodes. He had delayed graft function and has a baseline cr of 2.0 . Patient is here to follow up S/P kidney transplant surgery. * Patient is doing well overall. No new complaints. Noted elevated creatinine. Self cath at home bid,500-700 cc. Will need to increase frequency and rule out UTI in the setting of elevated creatinine/immunocompromised status. * Denied chest pain, SOB, ROBERTSON, Palpitation. Normal urination and bowel movement. Normal gait and no weakness of arms/legs. No cough, runny nose, sore throat, cold symptoms, or rash. No hearing loss. Normal vision.No problems with his sleep, mood and function. No recent infection, hospitalization, surgery or ER visits. * ROS : Review of system (14 systems) was done. See HPI. Otherwise were negative. * Past medical Hx, Past Surgical Hx were reviewed. Pertinent history was mentioned in HPI. * Family hx - no family hx of kidney disease * Social hx - no hx of active smoking , alcohol and drug abuse * Current med list and allergy hx - were reviewed [facility] Work Phone: Reason for referral (narrative)* Outpatient Procedure (Routine) - Pending Review Specialty Diagnoses / Procedures Referred By Surinder t Referred To Contact [facility] Diagnoses Benign prostatic hyperplasia with urinary obstruction Procedures URODYNAMICS CADE POST-VOIDING RESIDUAL URINE&/BLADDER CAP Laurie Badillo DO [address] [place] [address] [facility] [address] [place] [id number] Referral ID Status Reason Start Date Expiration Date Visits Requested Visits Authorized [id number] Pending Review Auto-Generat ed Referral 03/06/2022 03/06/2023 1 1 [facility] for referral (narrative)* Diagnostic Procedure Only (Routine) - Closed Specialty Diagnoses / Procedures Referred By Contac t Referred To Contact [facility] Diagnoses Renal failure, chronic, stage 3 (moderate) (HCC) H/O kidney transplant Neurogenic bladder BPH with obstruction/lower urinary tract symptoms Procedures US PELVIS BLADDER US PELVIC NONOBSTETRIC IMAGE DCMTN LIMITED/F/U Diana Tate PA-C [address] [place] [address] Us Imaging Referral ID Status Reason Start Date Expiration Date V isits Requested Visits Authorized [id number] Closed Auto-Generate d Referral 02/19/2022 03/21/2023 1 1 * Consult, Test, Treat (Routine) - Closed Specialty Diagnoses / Procedures Referred By Contac t Referred To Contact Urology Diagnoses BPH with obstruction/lower urinary tract symptoms Procedures CONSULT TO UROLOGY OFFICE/OUTPATIENT NEW HIGH MDM 60-74 MINUTES Diana Tate PA-C [address] [place] [address] Referral ID Status Reason Start Date Expiration Date V isits Requested Visits Authorized [id number] Closed PCP Requested Referral 02/26/2022 02/19/2023 1 1 [facility] for referral (narrative)* Diagnostic Procedure Only (Routine) - Pending Review Specialty Diagnoses / Procedures Referred By Contac t Referred To Contact XR IMAGING Diagnoses H/O kidney transplant Hyperparathyroidism (HCC) Renal failure, chronic, stage 3 (moderate) (HCC) Other osteoporosis without current pathological fracture Procedures DXA-AXIAL SKELETON WITH VFA DXA BONE DENSITY STUDY AXIAL SKELETON Diana Tate PA-C [address] [place] [address] Xr Imaging Referral ID Status Reason Start Date Expiration Date Visits Requested Visits Authorized [id number] Pending Review Auto-Generat ed Referral 10/15/2023 1 1 * Consult, Test, Treat (Routine) - Authorized Specialty Diagnoses / Procedures Referred By Contac t Referred To Contact Cardiology Diagnoses Coronary artery disease involving [place] coronary artery of [place] heart without angina pectoris Claudication of both lower extremities (HCC) Mixed hyperlipidemia Procedures CONSULT TO CARDIOLOGY OFFICE/OUTPATIENT [facility] 60-74 MINUTES Diana Tate PA-C [address] [place] [address] Referral ID Status Reason Start Date Expiration Date Visits Requested Visits Authorized [id number] Authorized PCP Requested Referral 09/14/2022 09/14/2023 1 1 * Physical Therapy (Routine) - Pending Review Specialty Diagnoses / Procedures Referred By Contac t Referred To Contact [facility] Diagnoses Coronary artery disease involving [place] coronary artery of [place] heart without angina pectoris Claudication of both lower extremities (HCC) Mixed hyperlipidemia Traumatic incomplete tear of left rotator cuff, subsequent encounter Procedures CONSULT TO PHYSICAL THERAPY PHYSICAL THERAPY EVALUATION [facility] COMPLEX 45 MINS Diana Tate PA-C [address] [place] [address] [facility] [place] [address] [place] [address] Referral ID Status Reason Start Date Expiration Date Visits Requested Visits Authorized [id number] Pending Review Auto-Generat ed Referral 09/14/2022 09/14/2023 1 1 [facility] Procedure (Routine) - Closed Specialty Diagnoses / Procedures Referred By Contac t Referred To Contact [facility] Diagnoses Pre-operative examination Procedures ECG COMPLETE ECG ROUTINE ECG W/LEAST 12 LDS W/I&R Sallie Carlisle S, INSURANCE AND FINANCIAL SERVICES AGENT.PLC ENGINEER [address] [place] [address] [facility] [address] [address] Referral ID Status Reason Start Date Expiration Date V isits Requested Visits Authorized [id number] Closed Auto-Generate d Referral 12/10/2022 12/10/2023 1 1 [facility] for referral (narrative)* Outpatient Procedure (Routine) - Authorized Specialty Diagnoses / Procedures Referred By Contac t Referred To Contact [facility] Diagnoses Coronary artery disease involving [place] coronary artery of [place] heart without angina pectoris Essential hypertension Dyslipidemia Pre-operative cardiovascular examination Procedures ECHO ECHO TTHRC R-T 2D W/WOM-MODE COMPL SPEC&[place] [address] [place] [address] [facility] [address] [address] Referral ID Status Reason Start Date Expiration Date Visits Requested Visits Authorized [id number] Authorized Auto-Generat ed Referral 10/07/2022 10/06/2023 1 1 * Outpatient Procedure (Routine) - Pending Review Specialty Diagnoses / Procedures Referred By Contac t Referred To [facility] Diagnoses Coronary artery disease involving [place] coronary artery of [place] heart without angina pectoris Essential hypertension Dyslipidemia Pre-operative cardiovascular examination Procedures ECG COMPLETE ECG ROUTINE ECG W/LEAST 12 LDS W/I&[place] [address] [place] [address] [address] [place] [address] Referral ID Status Reason Start Date Expiration Date Visits Requested Visits Authorized [id number] Pending Review Auto-Generat ed Referral 12/18/2022 12/18/2023 1 1 [facility] for referral (narrative)* Outpatient Procedure (Routine) - Closed Specialty Diagnoses / Procedures Referred By Contac t Referred To Contact [facility] Diagnoses Coronary artery disease involving [place] coronary artery of [place] heart without angina pectoris Essential hypertension Dyslipidemia Pre-operative cardiovascular examination Procedures ECHO ECHO TTHRC R-T 2D W/WOM-MODE COMPL SPEC&COLR D Ledy Ivy MD [address] [place] [address] [facility] [place] [address] [place] [address] Referral ID Status Reason Start Date Expiration Date V isits Requested Visits Authorized [id number] Closed Auto-Generate d Referral 10/07/2022 10/06/2023 1 1 [facility] for visit Narrative* Outpatient Procedure (Routine) - Closed Specialty Diagnoses / Procedures Referred By Surinder munroe Referred To Contact [facility] Diagnoses Coronary artery disease involving [place] coronary artery of [place] heart without angina pectoris Essential hypertension Dyslipidemia Pre-operative cardiovascular examination Procedures ECHO ECHO TTHRC R-T 2D W/WOM-MODE COMPL SPEC&COLR D Ledy vIy MD [address] [place] [address] [facility] [address] [address] Referral ID Status Reason Start Date Expiration Date V isits Requested Visits Authorized [id number] Closed Auto-Generate d Referral 10/07/2022 10/06/2023 1 1 [facility] Summary Purpose Family History No Family History Records FoundNo Family History Records FoundNo Family History Records FoundNo Family History Records FoundNo Family History Records FoundNo Family History Records FoundNo Family History Records FoundNo Family History Records FoundNo Family History Records Found Advance Directives Documents on File Type Date Recorded Patient Can Patcher Expl anation Advance Directives and Living Will Power of Ela Teacher Latest Code Status on File Code Status Date Activated Date Inactivated Comments Full Code 02/11/2018 5:24 PM 02/15/2018 7:47 PM Full Code 02/11/2018 9:57 AM 02/11/2018 5:24 PM Full Code 01/24/2018 8:53 AM 01/24/2018 4:54 PM Full Code 12/27/2017 2:36 PM 12/28/2017 5:02 PM Full Code 12/27/2017 1:01 PM 12/27/2017 2:36 PM Documents on File Type Date Recorded Patient Can Patcher Expl anation ACP-Advance Directive ACP-Power of Ela Teacher Latest Code Status on File Code Status Date Activated Date Inactivated Comments Full Code 02/11/2018 5:24 PM 02/15/2018 7:47 PM Full Code 02/11/2018 9:57 AM 02/11/2018 5:24 PM Full Code 01/24/2018 8:53 AM 01/24/2018 4:54 PM Full Code 12/27/2017 2:36 PM 12/28/2017 5:02 PM Full Code 12/27/2017 1:01 PM 12/27/2017 2:36 PM Documents on File Type Date Recorded Patient Can Patcher Expl anation Advance Directive(s) Advance Directive(s) 06/14/2021 6:21 AM Advance Directive(s) 05/18/2021 1:26 PM Documents on File Type Date Recorded Patient Can Patcher Expl anation Advance Directive(s) Advance Directive(s) 06/14/2021 6:21 AM Advance Directive(s) 05/18/2021 1:26 PM Discharge Instructions * Instructions* Elisha Bentley RN - 03/01/2020 Fistulagram Hemodialysis Access: What to Expect at Home You have had a procedure to evaluate your fistula or graft. These instructions will help you to care for the procedure site(s), tell you what you can and cannot do, and give you helpful information when you are at home. Hemodialysis is a way to remove wastes from the blood when your kidneys can no longer do the job. It is not a cure, but it can help you live longer and feel better. It is a lifesaving treatment when you have kidney failure. Hemodialysis is often called dialysis. Your doctor created a place (called an access or fistula) in your arm for your blood to flow in and out of your body during your dialysis sessions. You should always be able to feel blood rushing through the fistula or graft. It feels like a slight vibration when you put your fingers on the skin over the fistula or graft. This feeling is called a thrill or pulse. How can you care for yourself at home? Rest when you feel tired. Getting enough sleep will help you recover. Do not lie on or sleep on thearm with the access. Avoid activities such as washing windows or gardening that put stress on the arm with the access. You may use your arm, but do not lift anything that weighs more than about 5 pounds for 24 hours.. This may include a child, heavy grocery bags, a heavy briefcase or backpack, cat litter or dog food bags, or a vacuum truck car and bus cleaner. Your dressing will be removed at your next dialysis treatment. If there are stitches, they may be removed by your dialysis nurse after your next dialysis treatment or they may request that you return to Special Procedures for suture removal. If there is a small pad that is dried and crusted, it may be gently soaked and removed with your next dialysis treatment. If your dressing gets soaked with blood, apply pressure, and go to the nearest Emergency room. Soreness or tenderness can last up to a week A small (quarter size) spot with blood from your incision is normal Bruising can last up to two weeks Diet Follow an eating plan that is good for your kidneys. A registered dietitian can help you make a meal plan that is right for you. You may need to limit protein, salt, fluids, and certain foods Other instructions Every day, check your access for a pulse or thrill in the fistula or graft area. A thrill is a vibration. To feel a pulse or thrill, place the first two fingers of your hand over the access. Do not bump your arm. Do not wear tight clothing, jewelry, or anything else that may squeeze the access. Use your other arm to have blood drawn or blood pressure taken. Do not put cream or lotion on or near the access. Make sure all doctors you deal with know you have a vascular access. Follow-up care is a small part of your treatment and safety. Be sure to make and go to all appointments, and call your doctor if you are having problems. It's also a good idea to know your test resultsand keep a list of the medicines you take. When should you call for help? Call 911 anytime you think you may need emergency care. For example, call if: You passed out (lost consciousness). You have severe trouble breathing. You have sudden chest pain and shortness of breath, or you cough up blood. You have a rapid pulse or heartbeat. Call your doctor now or seek immediate medical care if: Your hand or arm is cold or dark-colored. You have sudden bulging around your access. You have no pulse or thrill in your access, or you hear no sound of blood in your access. Bleeding after dialysis lasts longer than usual. You have severe pain that does not get better after you take pain medicine. You have a fever over 100 F. You have signs of infection, such as: Increased pain, swelling, warmth, or redness. Red streaks leading from the incision. Pus draining from the incision. Swollen lymph nodes in your neck, armpits, or groin. A fever. Watch closely for changes in your health, and be sure to contact your doctor if you have any problems. If you have any questions or problems following your procedure, please call: Special Procedures at . After hours (before 7 am and after 4 pm) call and ask for the Interventional Radiologist air traffic control supervisor. Where can you learn more? Go to [email or web address] and sign in to your [email or web address] account. Enter P616 in the Search Health Information box to learn more about Hemodialysis Access: What to Expect at Home. If you do not have an account, please click on the Sign Up Now link. Current as of: August 22, 2016 Content Version: 11.2 4258-4192 [employer]. Care instructions adapted under license by [employer]. If youhave questions about a medical condition or this instruction, always ask your healthcare professional. [employer] disclaims any warranty or liability for your use of this information. 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 D/C inst given. Taking snack in OBS. Awaiting transport * Elisha Bentley RN - 03/01/2020 3:12 PM EDT To Obs area. Using cell to call for ride * Elisha Bentley RN - 03/01/2020 3:00 PM EDT Attempted to call [facility] for transport home. Message left documented in this encounter Assessments Diagnosis Stenosis of right subclavian artery (HCC) Atherosclerosis of other specified arteries Diagnosis Atherosclerosis of [place] artery 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) Atherosclerosis of [place] arteries of the extremities with intermittent claudication Reason for Referral Status Reason Specialty Diagnoses / Procedures Re ferred By Contact Referred To Contact Authorized Radiology Diagnoses Atherosclerosis of [place] artery 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) Procedures VL DUP LOWER EXTREMITY ARTERIES BILATERAL Guido Jauregui MD [address] [place] [address] Status Reason Specialty Diagnoses / Procedures Referred By Contact Referred To Contact Authorized Radiology Diagnoses Stage 3 chronic kidney disease, unspecified whether stage 3a or 3b CKD 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) Procedures VL DUP LOWER EXTREMITY ARTERIES BILATERAL Guido Jauregui MD [address] [place] [address] Specialty Diagnoses / Procedures Referred By Contac t Referred To Contact Orthopedics Diagnoses Acute pain of left shoulder Procedures CONSULT TO ORTHOPAEDICS OFFICE/OUTPATIENT [facility] 60-74 MINUTES Isabel Guillaume APRN.PLC ENGINEER [address] [place] [address] Referral ID Status Reason Start Date Expiration Date Visits Requested Visits Authorized [id number] Authorized PCP Requested Referral 05/04/2022 05/04/2023 1 1 Specialty Diagnoses / Procedures Referred By Contac t Referred To Contact XR IMAGING Diagnoses Acute pain of left shoulder Procedures XR SHOULDER LIMITED 2V AP/TRUE AP LEFT RADEX SHOULDER COMPLETE MINIMUM 2 VIEWS Isabel Guillaume, INSURANCE AND FINANCIAL SERVICES AGENT.PLC ENGINEER [address] [place] [address] Xr Imaging Referral ID Status Reason Start Date Expiration Date V isits Requested Visits Authorized [id number] Closed Auto-Generate d Referral 05/04/2022 06/03/2023 1 1 Specialty Diagnoses / Procedures Referred By Contac t Referred To Contact MR IMAGING Diagnoses Acute pain of left shoulder Traumatic tear of left rotator cuff, unspecified tear extent, initial encounter Procedures MRI SHOULDER WO IVCON LT MRI ANY JT UPPER EXTREMITY W/O CONTRAST MATRL Maynor Baldwin MD [address] [place] [address] Mr Imaging Referral ID Status Reason Start Date Expiration Date Visits Requested Visits Authorized [id number] Authorized Auto-Generat ed Referral 05/21/2022 06/26/2022 1 1 Specialty Diagnoses / Procedures Referred By Contac t Referred To Contact [facility] Diagnoses Coronary artery disease involving [place] coronary artery of [place] heart without angina pectoris Claudication of both lower extremities (HCC) Mixed hyperlipidemia Traumatic incomplete tear of left rotator cuff, subsequent encounter Procedures PT REHAB FOLLOW UP ORDER THERAPEUTIC EXERCISES RE, EA 15 MIN. Pt [facility] [address] [place] [address] [facility] [address] [address] Referral ID Status Reason Start Date Expiration Date Visits Requested Visits Authorized [id number] Pending Review PCP Requested Referral Auto-Generate d Referral 2 12/19/2022 1 1 Specialty Diagnoses / Procedures Referred By Contac t Referred To Contact [facility] Diagnoses S/P left rotator cuff repair S/P shoulder surgery Procedures CONSULT TO PHYSICAL THERAPY PHYSICAL THERAPY EVALUATION HIGH COMPLEX 45 MINS Abraham Evans PA-C [address] [place] [address] [facility] [address] [address] Referral ID Status Reason Start Date Expiration Date Visits Requested Visits Authorized [id number] Pending Review Auto-Generat ed Referral 01/18/2023 01/18/2024 1 1 Specialty Diagnoses / Procedures Referred By Contac t Referred To Contact [facility] Diagnoses S/P left rotator cuff repair S/P shoulder surgery Procedures PT REHAB FOLLOW UP ORDER THERAPEUTIC EXERCISES RE, EA 15 MIN. Lazaro Gonzalez, PT [address] [place] [address] [facility] [address] [address] Referral ID Status Reason Start Date Expiration Date V isits Requested Visits Authorized [id number] Closed PCP Requested Referral Auto-Generated Referral 01/25/2023 04/25/2023 1 1 Specialty Diagnoses / Procedures Referred By Contac t Referred To Contact Cardiology Diagnoses Atherosclerosis of [place] artery 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) Procedures Vascular US lower extremity arterial duplex left with CHEL Asia Cha PA-C [address] [place] [address] [address] Non-Invasive Cardiology [address] [place] [address] Referral ID Status Reason Start Date Expiration Date V isits Requested Visits Authorized [id number] Closed Perform Procedure 03/05/2023 09/01/2023 1 1 Specialty Diagnoses / Procedures Referred By Contac t Referred To Contact Cardiology Diagnoses Atherosclerosis of artery of extremity with intermittent claudication (HCC) Procedures Vascular US lower extremity arterial PVR with exercise Jennifer Sutton APRN - CNP [address] [place] [address] Referral ID Status Reason Start Date Expiration Date Visits Requested Visits Authorized [id number] Pending Review Perform Procedure 05/27/2023 11/23/2023 1 1 Specialty Diagnoses / Procedures Referred By Contac t Referred To Contact Diagnoses Kidney replaced by transplant Osteoporosis with current pathological fracture, unspecified osteoporosis type, initial encounter Stage 3b chronic kidney disease ([facility]) [place] [address] [place] [address] Referral ID Status Reason Start Date Expiration Date V isits Requested Visits Authorized [id number] Pending Review 11/14/2023 11/13/2024 1 1 Chief Complaint * A telephone visit (audio only) between the patient (at the originating site) and the provider (at the distant site) was utilized to provide this telehealth service. * Verbal consent was requested and obtained from MARIAN KOCH on this date, 07/26/2021 08:00 AM , for a telehealth visit. * Patient is here to follow up S/P kidney transplant surgery Patient is here to follow up S/P kidney transplant surgerypost transplant f/u Patient is here to follow up S/P kidney transplant surgery Medications Administered Section Inactive Administered Medications - up to 3 most recent administrations Medication Order MAR Action Action Date Dose Rate Site lidocaine urojet 2 % 11 mL topical gel (XYLOCAINE, GLYDO) 11 mL, URETHRAL, ONCE (UP TO 30 DAYS AMB), 1 dose, On 04/08/22 at 1000, Prior to UDS procedure Given 04/20/2022 8:00 AM EDT 11 mL Other Inactive Administered Medications - up to 3 most recent administrations Medication Order MAR Action Action Date Dose Rate Site betamethasone acetate-betamethasone sodium phosphate 6 mg injection (CELESTONE) 6 mg, Injection - FOR ORTHO USE ONLY, ONE TIME INJECTION, 1 dose, Starting on Lyssa 06/07/22 at 1633, Until Lyssa 06/07/22 at 1633 Given 06/07/2022 4:33 PM EDT 6 mg Shoulder, Left lidocaine (PF) 10 mg/mL (1 %) 4 mL injection (XYLOCAINE) 4 mL, Injection - FOR ORTHO USE ONLY, ONE TIME INJECTION, 1 dose, Starting on Lyssa 06/07/22 at 1633, Until Lyssa 06/07/22 at 1633 Given 06/07/2022 4:33 PM EDT 4 mL Shoulder, Left Inactive Administered Medications - up to 3 most recent administrations Medication Order MAR Action Action Date Dose Rate Site betamethasone acetate-betamethasone sodium phosphate 6 mg injection (CELESTONE) 6 mg, Injection - FOR ORTHO USE ONLY, ONE TIME INJECTION, 1 dose, Starting on Sat09/24/22 at 1536, Until Sat09/24/22 at 1536 Given 09/24/2022 3:36 PM EST 6 mg Shoulder, Left lidocaine (PF) 10 mg/mL (1 %) 4 mL injection (XYLOCAINE) 4 mL, Injection - FOR ORTHO USE ONLY, ONE TIME INJECTION, 1 dose, Starting on Sat09/24/22 at 1536, Until Sat09/24/22 at 1536 Given 09/24/2022 3:36 PM EST 4 mL Shoulder, Left Inactive Administered Medications - up to 3 most recent administrations Medication Order MAR Action Action Date Dose Rate Site fentaNYL 50 mcg/mL 25 mcg injection (SUBLIMAZE) 25 mcg, INTRAVENOUS, NEEDED, Starting on Sat01/03/23 at 1726, Until 01/04/23 at 0303, FIRST LINE THERAPY for moderate or severe pain, FIRST LINE THERAPY Every 10 minutes, To a Maximum Total Dose of 100 mcg Hold for respiratory rate less than 10 USE FOR MODERATE PAIN ONLY IF PATIENT IS UNABLE TO TOLERATE ORAL THERAPY lactated ringers iv infusion 5-30 mL/hr, INTRAVENOUS, CONTINUOUS, Starting on Lyssa 01/03/23 at 1200, Until Lyssa 01/03/23 at 1615, Preprocedure Rate Verify 01/03/2023 4:13 PM EDT 30 mL/hr 30 mL/hr Health Concerns Infection Onset Date Last Indicated Resolved Time COVID-19 Rule-Out 07/23/2022 07/23/2022 Additional Source Comments (unrecognized sect ion and content) No Status Records FoundNo Status Records FoundNo Status Records FoundNo Status Records FoundNo Status Records FoundNo Status Records FoundNo Status Records FoundNo Status Records FoundNo Status Records Found INFORMATION SOURCE (unrecogn ized section and content) DATE CREATED AUTHOR AUTHOR'S ORGANIZ ATION 02/24/2019 [facility] DATE CREATED AUTHOR AUTHOR'S ORGANIZ ATION 12/20/2021 [facility] DATE CREATED AUTHOR AUTHOR'S ORGANIZ ATION 05/18/2022 [facility] DATE CREATED AUTHOR AUTHOR'S ORGANIZ ATION 12/27/2022 [facility] DATE CREATED AUTHOR AUTHOR'S ORGANIZ ATION 06/01/2023 [facility] DATE CREATED AUTHOR AUTHOR'S ORGANIZ ATION 06/06/2023 [employer] DATE CREATED AUTHOR AUTHOR'S ORGANIZ ATION 06/08/2023 [facility] DATE CREATED AUTHOR AUTHOR'S ORGANIZ ATION 10/14/2023 [facility] Source Comments (unrecognize d section and content) In the event this informatio n is protected by the Federal Confidentiality of Alcohol and Drug Abuse Patient Records regulations: The Federal rules restrict any use of the information to criminally investigate or prosecute any alcohol or drug abuse patient.[facility] the event this information is protected by the Federal Confidentiality of Alcohol and Drug Abuse Patient Records regulations: The Federal rules restrict any use of the information to criminally investigate or prosecute any alcohol or drug abuse patient.[facility] the event this information is protected by the Federal Confidentiality of Alcohol and Drug Abuse Patient Records regulations: The Federal rules restrict any use of the information to criminally investigate or prosecute any alcohol or drug abuse patient.[facility] the event this information is protected by the Federal Confidentiality of Alcohol and Drug Abuse Patient Records regulations: The Federal rules restrict any use of the information to criminally investigate or prosecute any alcohol or drug abuse patient.[facility] HospitalIn the event this information is protected by the Federal Confidentiality of Alcohol and Drug Abuse Patient Records regulations: The Federal rules restrict any use of the information to criminally investigate or prosecute any alcohol or drug abuse patient.[facility] HospitalIn the event this information is protected by the Federal Confidentiality of Alcohol and Drug Abuse Patient Records regulations: The Federal rules restrict any use of the information to criminally investigate or prosecute any alcohol or drug abuse patient.[facility] HospitalIn the event this information is protected by the Federal Confidentiality of Alcohol and Drug Abuse Patient Records regulations: The Federal rules restrict any use of the information to criminally investigate or prosecute any alcohol or drug abuse patient.[facility] HospitalIn the event this information is protected by the Federal Confidentiality of Alcohol and Drug Abuse Patient Records regulations: The Federal rules restrict any use of the information to criminally investigate or prosecute any alcohol or drug abuse patient.[facility] HospitalIn the event this information is protected by the Federal Confidentiality of Alcohol and Drug Abuse Patient Records regulations: The Federal rules restrict any use of the information to criminally investigate or prosecute any alcohol or drug abuse patient.[facility] HospitalIn the event this information is protected by the Federal Confidentiality of Alcohol and Drug Abuse Patient Records regulations: The Federal rules restrict any use of the information to criminally investigate or prosecute any alcohol or drug abuse patient.[facility] HospitalIn the event this information is protected by the Federal Confidentiality of Alcohol and Drug Abuse Patient Records regulations: The Federal rules restrict any use of the information to criminally investigate or prosecute any alcohol or drug abuse patient.[facility] HospitalIn the event this information is protected by the Federal Confidentiality of Alcohol and Drug Abuse Patient Records regulations: The Federal rules restrict any use of the information to criminally investigate or prosecute any alcohol or drug abuse patient.[facility] HospitalIn the event this information is protected by the Federal Confidentiality of Alcohol and Drug Abuse Patient Records regulations: The Federal rules restrict any use of the information to criminally investigate or prosecute any alcohol or drug abuse patient.[facility] HospitalIn the event this information is protected by the Federal Confidentiality of Alcohol and Drug Abuse Patient Records regulations: The Federal rules restrict any use of the information to criminally investigate or prosecute any alcohol or drug abuse patient.[facility] HospitalIn the event this information is protected by the Federal Confidentiality of Alcohol and Drug Abuse Patient Records regulations: The Federal rules restrict any use of the information to criminally investigate or prosecute any alcohol or drug abuse patient.[facility] HospitalIn the event this information is protected by the Federal Confidentiality of Alcohol and Drug Abuse Patient Records regulations: The Federal rules restrict any use of the information to criminally investigate or prosecute any alcohol or drug abuse patient.[facility] HospitalIn the event this information is protected by the Federal Confidentiality of Alcohol and Drug Abuse Patient Records regulations: The Federal rules restrict any use of the information to criminally investigate or prosecute any alcohol or drug abuse patient.[facility] HospitalIn the event this information is protected by the Federal Confidentiality of Alcohol and Drug Abuse Patient Records regulations: The Federal rules restrict any use of the information to criminally investigate or prosecute any alcohol or drug abuse patient.[facility] HospitalIn the event this information is protected by the Federal Confidentiality of Alcohol and Drug Abuse Patient Records regulations: The Federal rules restrict any use of the information to criminally investigate or prosecute any alcohol or drug abuse patient.[facility] HospitalIn the event this information is protected by the Federal Confidentiality of Alcohol and Drug Abuse Patient Records regulations: The Federal rules restrict any use of the information to criminally investigate or prosecute any alcohol or drug abuse patient.[facility] HospitalIn the event this information is protected by the Federal Confidentiality of Alcohol and Drug Abuse Patient Records regulations: The Federal rules restrict any use of the information to criminally investigate or prosecute any alcohol or drug abuse patient.[facility] HospitalIn the event this information is protected by the Federal Confidentiality of Alcohol and Drug Abuse Patient Records regulations: The Federal rules restrict any use of the information to criminally investigate or prosecute any alcohol or drug abuse patient.[facility] HospitalIn the event this information is protected by the Federal Confidentiality of Alcohol and Drug Abuse Patient Records regulations: The Federal rules restrict any use of the information to criminally investigate or prosecute any alcohol or drug abuse patient.[facility] HospitalIn the event this information is protected by the Federal Confidentiality of Alcohol and Drug Abuse Patient Records regulations: The Federal rules restrict any use of the information to criminally investigate or prosecute any alcohol or drug abuse patient.[facility] HospitalIn the event this information is protected by the Federal Confidentiality of Alcohol and Drug Abuse Patient Records regulations: The Federal rules restrict any use of the information to criminally investigate or prosecute any alcohol or drug abuse patient.[facility] HospitalIn the event this information is protected by the Federal Confidentiality of Alcohol and Drug Abuse Patient Records regulations: The Federal rules restrict any use of the information to criminally investigate or prosecute any alcohol or drug abuse patient.[facility] HospitalIn the event this information is protected by the Federal Confidentiality of Alcohol and Drug Abuse Patient Records regulations: The Federal rules restrict any use of the information to criminally investigate or prosecute any alcohol or drug abuse patient.[facility] HospitalIn the event this information is protected by the Federal Confidentiality of Alcohol and Drug Abuse Patient Records regulations: The Federal rules restrict any use of the information to criminally investigate or prosecute any alcohol or drug abuse patient.[facility] HospitalIn the event this information is protected by the Federal Confidentiality of Alcohol and Drug Abuse Patient Records regulations: The Federal rules restrict any use of the information to criminally investigate or prosecute any alcohol or drug abuse patient.[facility] HospitalIn the event this information is protected by the Federal Confidentiality of Alcohol and Drug Abuse Patient Records regulations: The Federal rules restrict any use of the information to criminally investigate or prosecute any alcohol or drug abuse patient.[facility] HospitalIn the event this information is protected by the Federal Confidentiality of Alcohol and Drug Abuse Patient Records regulations: The Federal rules restrict any use of the information to criminally investigate or prosecute any alcohol or drug abuse patient.[facility] HospitalIn the event this information is protected by the Federal Confidentiality of Alcohol and Drug Abuse Patient Records regulations: The Federal rules restrict any use of the information to criminally investigate or prosecute any alcohol or drug abuse patient.[facility] HospitalIn the event this information is protected by the Federal Confidentiality of Alcohol and Drug Abuse Patient Records regulations: The Federal rules restrict any use of the information to criminally investigate or prosecute any alcohol or drug abuse patient.[facility] HospitalIn the event this information is protected by the Federal Confidentiality of Alcohol and Drug Abuse Patient Records regulations: The Federal rules restrict any use of the information to criminally investigate or prosecute any alcohol or drug abuse patient.[facility] HospitalIn the event this information is protected by the Federal Confidentiality of Alcohol and Drug Abuse Patient Records regulations: The Federal rules restrict any use of the information to criminally investigate or prosecute any alcohol or drug abuse patient.[facility] HospitalIn the event this information is protected by the Federal Confidentiality of Alcohol and Drug Abuse Patient Records regulations: The Federal rules restrict any use of the information to criminally investigate or prosecute any alcohol or drug abuse patient.[facility] HospitalIn the event this information is protected by the Federal Confidentiality of Alcohol and Drug Abuse Patient Records regulations: The Federal rules restrict any use of the information to criminally investigate or prosecute any alcohol or drug abuse patient.[facility] HospitalIn the event this information is protected by the Federal Confidentiality of Alcohol and Drug Abuse Patient Records regulations: The Federal rules restrict any use of the information to criminally investigate or prosecute any alcohol or drug abuse patient.[facility] HospitalIn the event this information is protected by the Federal Confidentiality of Alcohol and Drug Abuse Patient Records regulations: The Federal rules restrict any use of the information to criminally investigate or prosecute any alcohol or drug abuse patient.[facility] HospitalIn the event this information is protected by the Federal Confidentiality of Alcohol and Drug Abuse Patient Records regulations: The Federal rules restrict any use of the information to criminally investigate or prosecute any alcohol or drug abuse patient.[facility] HospitalIn the event this information is protected by the Federal Confidentiality of Alcohol and Drug Abuse Patient Records regulations: The Federal rules restrict any use of the information to criminally investigate or prosecute any alcohol or drug abuse patient.[facility] HospitalIn the event this information is protected by the Federal Confidentiality of Alcohol and Drug Abuse Patient Records regulations: The Federal rules restrict any use of the information to criminally investigate or prosecute any alcohol or drug abuse patient.[facility] HospitalIn the event this information is protected by the Federal Confidentiality of Alcohol and Drug Abuse Patient Records regulations: The Federal rules restrict any use of the information to criminally investigate or prosecute any alcohol or drug abuse patient.[facility] HospitalIn the event this information is protected by the Federal Confidentiality of Alcohol and Drug Abuse Patient Records regulations: The Federal rules restrict any use of the information to criminally investigate or prosecute any alcohol or drug abuse patient.[facility] HospitalIn the event this information is protected by the Federal Confidentiality of Alcohol and Drug Abuse Patient Records regulations: The Federal rules restrict any use of the information to criminally investigate or prosecute any alcohol or drug abuse patient.[facility] HospitalIn the event this information is protected by the Federal Confidentiality of Alcohol and Drug Abuse Patient Records regulations: The Federal rules restrict any use of the information to criminally investigate or prosecute any alcohol or drug abuse patient.[facility] HospitalIn the event this information is protected by the Federal Confidentiality of Alcohol and Drug Abuse Patient Records regulations: The Federal rules restrict any use of the information to criminally investigate or prosecute any alcohol or drug abuse patient.[facility] HospitalIn the event this information is protected by the Federal Confidentiality of Alcohol and Drug Abuse Patient Records regulations: The Federal rules restrict any use of the information to criminally investigate or prosecute any alcohol or drug abuse patient.[facility] HospitalIn the event this information is protected by the Federal Confidentiality of Alcohol and Drug Abuse Patient Records regulations: The Federal rules restrict any use of the information to criminally investigate or prosecute any alcohol or drug abuse patient.[facility] HospitalIn the event this information is protected by the Federal Confidentiality of Alcohol and Drug Abuse Patient Records regulations: The Federal rules restrict any use of the information to criminally investigate or prosecute any alcohol or drug abuse patient.[facility] HospitalIn the event this information is protected by the Federal Confidentiality of Alcohol and Drug Abuse Patient Records regulations: The Federal rules restrict any use of the information to criminally investigate or prosecute any alcohol or drug abuse patient.[facility] Reason for Visit (unrecogniz ed section and content) Specialty Diagnoses / Procedures Referred By Surinder t Referred To Contact PHYSICAL THERAPY Diagnoses S/P left rotator cuff repair S/P shoulder surgery Z98.890 (ICD-10-CM) - S/P left rotator cuff repair Z98.890 (ICD-10-CM) - S/P shoulder surgery Procedures PT REHAB FOLLOW UP ORDER THERAPEUTIC EXERCISES RE, EA 15 MIN. Diana Tate PA-C [address] [place] [address] Pt [facility] [address] [place] [address] Referral ID Status Reason Start Date Expiration Date Visits Requested Visits Authorized [id number] Authorized PCP Requested Referral Auto-Generate d Referral 02/04/2023 10/06/2023 60 60 Reason Comments Physical Therapy Specialty Diagnoses / Procedures Referred By Contac t Referred To Contact Physical Therapy / PHYSICAL THERAPY Diagnoses Follow up Procedures EST RS PT ORTH Diana Montano PA-C [address] [place] [address] Tonny De Guzman, PT [address] [place] [address] Referral ID Status Reason Start Date Expiration Date V isits Requested Visits Authorized [id number] Authorized 10/07/2022 02/04/2023 20 20 Reason Comments PT Eval Specialty Diagnoses / Procedures Referred By Contac t Referred To Contact Physical Therapy / PHYSICAL THERAPY Diagnoses Follow up Procedures EST RS PT ORTH Diana Montano PA-C [address] [place] [address] Tonny De Guzman, PT [address] [place] [address] Reason Comments PT Discharge Physical Therapy Referral ID Status Reason Start Date Expiration Date V isits Requested Visits Authorized [id number] Authorized 10/07/2022 10/06/2023 20 20 Reason Comments Physical Therapy PT Progress Note Reason Comments Appointment Reason Comments Consult Specialty Diagnoses / Procedures Referred By Contac t Referred To Contact Urology Diagnoses BPH with obstruction/lower urinary tract symptoms Procedures CONSULT TO UROLOGY OFFICE/OUTPATIENT [facility] 60-74 MINUTES Diana Tate PA-C [address] [place] [address] Referral ID Status Reason Start Date Expiration Date V isits Requested Visits Authorized [id number] Closed PCP Requested Referral 02/26/2022 02/19/2023 1 1 Reason Comments Urinary Retention Reason Comments Refill Request Reason Comments Urinary Problem frequency Reason Comments Urinary Retention UDS Reason Comments Shoulder Injury L shoulder injury x1 week Reason Comments Kidney Problem Reason Comments New Pain Specialty Diagnoses / Procedures Referred By Contac t Referred To Contact Orthopedics Diagnoses Acute pain of left shoulder Procedures CONSULT TO ORTHOPAEDICS OFFICE/OUTPATIENT [facility] 60-74 MINUTES Isabel Guillaume APRN.PLC ENGINEER [address] [id number] Referral ID Status Reason Start Date Expiration Date V isits Requested Visits Authorized [id number] Closed PCP Requested Referral 05/04/2022 05/04/2023 1 1 Reason Comments Established Patient Results - Mri Reason Comments Cough SOB, GARVEY, ST x5 days Reason Comments 6 Month Exam Pain Left shoulder. 8-9 o ut of 10. Achy and throbbing Seeing Dr Baldwin. Last appt had injection. Next appt 09/24 Specialty Diagnoses / Procedures Referred By Contac t Referred To Contact [facility] Diagnoses Coronary artery disease involving [place] coronary artery of [place] heart without angina pectoris Claudication of both lower extremities (HCC) Mixed hyperlipidemia Traumatic incomplete tear of left rotator cuff, subsequent encounter Procedures CONSULT TO PHYSICAL THERAPY PHYSICAL THERAPY EVALUATION HIGH COMPLEX 45 MINS Diana Tate PA-C [address] [place] [address] [facility] [address] [place] [address] Referral ID Status Reason Start Date Expiration Date Visits Requested Visits Authorized [id number] Authorized Auto-Generat ed Referral 02/04/2022 10/06/2022 20 20 Specialty Diagnoses / Procedures Referred By Surinder munroe Referred To Contact [facility] Diagnoses Coronary artery disease involving [place] coronary artery of [place] heart without angina pectoris Claudication of both lower extremities (HCC) Mixed hyperlipidemia Traumatic incomplete tear of left rotator cuff, subsequent encounter Procedures CONSULT TO PHYSICAL THERAPY PHYSICAL THERAPY EVALUATION HIGH COMPLEX 45 MINS Diana Tate PA-C [address] [place] [address] [facility] [address] [place] [address] Reason Comments Established Patient 15 weeks 4 days post visit Left shoulder pain with injection given - wants injection Reason Comments Results Reason Comments Follow Up 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 Reason Comments New Pain Reason Comments Cardiac Clearance Reason Comments Consult Reason Comments New Patient Cardiac Clearance Reason Comments Patient Update Reason Comments Results echo Specialty Diagnoses / Procedures Referred By Surinder munroe Referred To Contact [facility] Diagnoses Traumatic incomplete tear of left rotator cuff, initial encounter Impingement syndrome of left shoulder Bursitis of left shoulder Traumatic tear of left rotator cuff, unspecified tear extent, initial encounter Tendinitis of left shoulder Traumatic incomplete tear of left rotator cuff, initial encounter [S46.012A] Impingement syndrome of left shoulder [M75.42] Bursitis of left shoulder [M75.52] Traumatic tear of left rotator cuff, unspecified tear extent, initial encounter [S46.012A] Tendinitis of left shoulder [M77.8] Procedures SURGICAL ARTHROSCOPY SHOULDER W/ROTATOR CUFF RPR SURGICAL ARTHROSCOPY PAULA W/CORACOACRM LIGM RLS TENODESIS LONG TENDON BICEPS ARTHROSCOPY SHOULDER ROTATOR CUFF ARTHROSCOPY SHOULDER WITH SUBACROMIAL DECOMPRESSION TENODESIS LONG TENDON [place] [facility] [place] [address] [place] [address] Referral ID Status Reason Start Date Expiration Date Visits Re quested Visits Authorized [id number] 1 1 Reason Comments Medication Problem Reason Comments Established Patient Follow Up Post Op Reason Comments New Patient Specialty Diagnoses / Procedures Referred By Surinder munroe Referred To Contact Cardiology Diagnoses Coronary artery disease involving [place] coronary artery of [place] heart without angina pectoris Claudication of both lower extremities (HCC) Mixed hyperlipidemia Procedures CONSULT TO CARDIOLOGY OFFICE/OUTPATIENT NEW HIGH MDM 60-74 MINUTES Diana Tate PA-C [address] [place] [address] Referral ID Status Reason Start Date Expiration Date V isits Requested Visits Authorized [id number] Closed PCP Requested Referral 09/14/2022 09/14/2023 1 1 Reason Onset Date Comments Refill Request 01/25/2023 Reason Comments Sore Throat ST, cough, bodyaches and fever x 1 day Specialty Diagnoses / Procedures Referred By Surinder t Referred To Contact Cardiology Diagnoses Atherosclerosis of [place] artery 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) Procedures Vascular US lower extremity arterial duplex left with CHEL Asia Cha PA-C [address] [place] [address] [address] Non-Invasive Cardiology [address] [place] [address] Referral ID Status Reason Start Date Expiration Date V isits Requested Visits Authorized [id number] Closed Perform Procedure 03/05/2023 09/01/2023 1 1 Reason Comments Follow-up recall arterial dupl ex 03/20/23 Reason Onset Date Comments Test Scheduling 05/30/2023 PVR Reason Comments Covid19 Concern + x6 days, cough, SO B, chest congestion Care Teams (unrecognized sec tion and content) Crimping [employer] Operator Relationship Specialty Start Date End Date Diana Tate PA-C [address] [place] [address] PCP - General Family Practice 05/29/17 [employer] Operator Relationship Specialty Start Date End Date Diana Tate PA-C [address] [place], [place] [id number] PCP - General Family Practice 05/29/17 [employer]ping [employer] Operator Relationship Specialty Start Date End Date Diana Tate PA-C [address] [place] [address] PCP - General Family Practice 05/29/17 [employer] Operator Relationship Specialty Start Date End Date Diana Tate PA-C [address] [place] [address] PCP - General Family Practice 05/29/17 [employer]ping [employer] Operator Relationship Specialty Start Date End Date Diana Tate PA-C [address] [place] [address] PCP - General Family Practice 05/29/17 [employer]ping Press Operator Relationship Specialty Start Date End Date Diana Tate PA-C [address] [place] [address] PCP - General Family Practice 05/29/17 [employer] Operator Relationship Specialty Start Date End Date Diana Tate PA-C [address] [place] [address] PCP - General Family Practice 05/29/17 [employer] Press Operator Relationship Specialty Start Date End Date Diana Tate PA-C [address] [place] [address] PCP - General Family Medicine 05/29/17 [employer] Operator Relationship Specialty Start Date End Date Diana Tate PA-C [address] [place] [address] PCP - General Family Medicine 05/29/17 Crimping Press Operator Relationship Specialty Start Date End Date Diana Tate PA-C [address] [place] [address] PCP - General Family Medicine 05/29/17 [employer]ping Press Operator Relationship Specialty Start Date End Date Diana Tate PA-C [address] [place] [address] PCP - General Family Medicine 05/29/17 [employer]ping Press Operator Relationship Specialty Start Date End Date Diana Tate PA-C [address] [place] [address] PCP - General Family Medicine 05/29/17 Crimping Press Operator Relationship Specialty Start Date End Date Diana Tate PA-C [address] [facility] [address] PCP - General Family Medicine 05/29/17 Crimping Press Operator Relationship Specialty Start Date End Date Diana Tate PA-C [address] [facility] [place] [address] PCP - General Family Medicine 05/29/17 Crimping Press Operator Relationship Specialty Start Date End Date Diana Tate PA-C [address] [facility] [place] [address] PCP - General Family Medicine 05/29/17 Crimping Press Operator Relationship Specialty Start Date End Date Diana Tate PA-C [address] [facility] [place] [address] PCP - General Family Medicine 05/29/17 Crimping Press Operator Relationship Specialty Start Date End Date Diana Tate PA-C [address] [facility] [address] PCP - General Family Medicine 05/29/17 Crimping Press Operator Relationship Specialty Start Date End Date Diana Tate PA-C [address] [facility] [address] PCP - General Family Medicine 05/29/17 Crimping Press Operator Relationship Specialty Start Date End Date Diana Tate PA-C [address] [facility] [place] [address] PCP - General Family Medicine 05/29/17 Crimping Press Operator Relationship Specialty Start Date End Date Diana Tate PA-C [address] [facility] [address] PCP - General Family Medicine 05/29/17 [employer]ping Press Operator Relationship Specialty Start Date End Date Diana Tate PA-C [address] [place] [address] PCP - General Family Medicine 05/29/17 [employer]ping Press Operator Relationship Specialty Start Date End Date Diana Tate PA-C [address] [place] [address] PCP - General Family Medicine 05/29/17 [place] [address] [place] [id number] Primary Staff Physician Cardiology 12/18/22 Crimping Press Operator Relationship Specialty Start Date End Date Diana Tate PA-C [address] [place] [address] PCP - General Family Medicine 05/29/17 [place] [address] [place] [id number] Primary Staff Physician Cardiology 12/18/22 Crimping Press Operator Relationship Specialty Start Date End Date Diana Tate PA-C [address] [place] [address] PCP - General Family Medicine 05/29/17 Ledy Ivy MD [address] [place] [address] Primary Staff Physician Cardiology 12/18/22 [employer]ping Press Operator Relationship Specialty Start Date End Date Diana Tate PA-C [address] [place] [address] PCP - General Family Medicine 05/29/17 Ledy Ivy MD [address] [place] [address] Primary Staff Physician Cardiology 12/18/22 [employer]ping Press Operator Relationship Specialty Start Date End Date Diana Tate PA-C [address] [place] [address] PCP - General Family Medicine 05/29/17 Ledy Ivy MD [address] [place] [address] Primary Staff Physician Cardiology 12/18/22 [employer]ping Press Operator Relationship Specialty Start Date End Date Diana Tate PA-C [address] [place] [address] PCP - General Family Medicine 05/29/17 Ledy Ivy MD [address] [place] [address] Primary Staff Physician Cardiology 12/18/22 [employer] Press Operator Relationship Specialty Start Date End Date Diana Tate PA-C [address] [place] [address] PCP - General Family Medicine 05/29/17 Ledy Ivy MD [address] [place] [address] Primary Staff Physician Cardiology 12/18/22 [employer] Press Operator Relationship Specialty Start Date End Date Diana Tate PA-C [address] [place] [address] PCP - General Family Medicine 05/29/17 Ledy Ivy MD [address] [place] [address] Primary Staff Physician Cardiology 12/18/22 [employer] Press Operator Relationship Specialty Start Date End Date Diana Tate PA-C [address] [place] [address] PCP - General Family Medicine 05/29/17 Ledy Ivy MD [address] [place] [address] Primary Staff Physician Cardiology 12/18/22 [employer] Press Operator Relationship Specialty Start Date End Date Diana Tate PA-C [address] [place] [address] PCP - General Family Medicine 05/29/17 Ledy Ivy MD [address] [place] [address] Primary Staff Physician Cardiology 12/18/22 [employer]ping Press Operator Relationship Specialty Start Date End Date Diana Tate PA-C [address] [place] [address] PCP - General Family Medicine 05/29/17 Ledy Ivy MD [address] [place] [address] Primary Staff Physician Cardiology 12/18/22 Crimping Press Operator Relationship Specialty Start Date End Date Diana Tate [address] [place] [address] PCP - General 12/17/17 [employer] Operator Relationship Specialty Start Date End Date Diana Tate PA-C [address] [place] [address] PCP - General Family Medicine 05/29/17 Ledy Ivy MD [address] [place] [address] Primary Staff Physician Cardiology 12/18/22 [employer] Press Operator Relationship Specialty Start Date End Date Diana Tate [address] [place] [address] PCP - General 12/17/17 Jennifer Sutton APRN - [employer] ENGINEER [address] [place] [phone] Nurse Practitioner Nurse Practitioner 05/27/23 [employer]ping Press Operator Relationship Specialty Start Date End Date Diana Tate [address] [place], [place] [address] PCP - General 12/17/17 Jennifer Sutton APRN - [employer] ENGINEER [address] [phone] Nurse Practitioner Nurse Practitioner 05/27/23 [employer]ping Press Operator Relationship Specialty Start Date End Date Diana Tate PA-C [address] [place], [place] [id number] PCP - General Family Medicine 05/29/17 Ledy Ivy MD [address] [place] [address] Primary Staff Physician Cardiology 12/18/22 [employer]ping Press Operator Relationship Specialty Start Date End Date Diana aTte PA-C [address] [place], [place] [address] PCP - General Family Medicine 05/29/17 Ledy Ivy MD [address] [place] [address] Primary Staff Physician Cardiology 12/18/22 [employer] Press Operator Relationship Specialty Start Date End Date Galindo Khan MD [address] [place] [phone] PCP - General 03/03/10 Scheduled Active and Recently Administ ered Medications (unrecognized section and content) Continuous Medication Order 01/01/2023 01/02/2023 01/03/2023 lactated ringers iv infusion (CANCELED) 5-30 mL/hr, INTRAVENOUS, CONTINUOUS, Starting on Lyssa 01/03/23 at 1200, Until Lyssa 01/03/23 at 1615, Preprocedure 1222 (New Bag/Syring e/Bottle - Provider: Annita Patel RN)1309 (Stopped - Provider: Margo Taylor APRN.CRNA - Comment: Switch to gravity)1310 (Restarted - Provider: Margo Taylor APRN.CRNA)1544 (New Bag/Syringe/Bottle - Provider: Macie Hassan APRN.CRNA)1613 (Rate Verify - Provider: Margo Vickers RN - Comment: infusing on arrival to PACU)1747 (Infusion Complete - Provider: Margo Vickers RN) lactated ringers iv infusion 5-30 mL/hr, INTRAVENOUS, CONTINUOUS, Starting on Lyssa 01/03/23 at 1730, Until Sat01/04/23 at 0303 1730 (Due) PRN Medication Order 01/01/2023 01/02/2023 01/03/2023 bupivacaine-EPINEPHrine (PF) 0.5 %-1:200,000 injection (SENSORCAINE MPF/EPINEPHrine) (CANCELED) X (OR/PROCEDURE) PRN, Starting on Lyssa 01/03/23 at 1419, Until Lyssa 01/03/23 at 1616, Intraprocedure 1419 (Given - Provid er: Prachi Doss DO - Comment: 3,000 ml bags (X2) of NaCl for irrigation) fentaNYL 50 mcg/mL 25 mcg injection (SUBLIMAZE) 25 mcg, INTRAVENOUS, NEEDED, Starting on Lyssa 01/03/23 at 1726, Until Sat01/04/23 at 0303, FIRST LINE THERAPY for moderate or severe pain, FIRST LINE THERAPY Every 10 minutes, To a Maximum Total Dose of 100 mcg Hold for respiratory rate less than 10 USE FOR MODERATE PAIN ONLY IF PATIENT IS UNABLE TO TOLERATE ORAL THERAPY menthol-cetylpyridinium 1 Lozenge (CEPACOL LOZENGES) 1 Lozenge, ORAL, NEEDED, Starting on Lyssa 01/03/23 at 1723, Until Sat01/04/23 at 0303, Sore Throat 1725 (Given - Provid er: Margo Vickers RN) metoclopramide HCl 10 mg injection (REGLAN) 10 mg, INTRAVENOUS, NEEDED, 1 dose, Starting on Lyssa 01/03/23 at 1726, Until Sat01/04/23 at 0303, Nausea/Vomiting - Second Line - Parenteral ondansetron (PF) 4 mg injection (ZOFRAN) 4 mg, INTRAVENOUS, NEEDED, 1 dose, Starting on Lyssa 01/03/23 at 1726, Until Sat01/04/23 at 0303, Nausea/Vomiting - First Line - Parenteral, Give IV push over 2 minutes oxyCODONE IR 5 mg tab(s) (ROXICODONE) 5 mg, ORAL, NEEDED, 1 dose, Starting on Lyssa 01/03/23 at 1726, Until Sat01/04/23 at 0303, Moderate Pain (4-6) - Enteral FOR RECORDS PERTAINING TO PATIENTS WHO ARE OR HAVE BEEN ENROLLED IN A CHEMICAL DEPENDENCY/SUBSTANCEABUSE PROGRAM, SOME INFORMATION MAY BE OMITTED. This clinical summary was aggregated from multiple sources. Caution should be exercised in using it in the provision of clinical care. This summary normalizes information from multiple sources, and as a consequence, information in this document may materially change the coding, format and clinical context of patient data. In addition, data may be omitted in some cases. CLINICAL DECISIONS SHOULD BE BASED ON THE PRIMARY CLINICAL RECORDS. [facility]. provides no warranty or guarantee of the accuracy or completeness of information in this document.
[2023-11-15] MEDS: Ipratropium/Albuterol Sulfate 3 ML AMPUL.NEB INHALATION ×4 (07:01→20:15)
[2023-11-15] MEDS: Albuterol 2.5 MG/3 ML VIAL.NEB. INHALATION (07:02)
[2023-11-15] MEDS: Morphine 4 MG/ML Syringe IV (07:14)
[2023-11-15] MEDS: Ondansetron 4 MG/2 ML Vial IV (07:14)
[2023-11-15] MEDS: Acetaminophen 500 MG Tablet 1000 MG PO (07:15)
[2023-11-15] MEDS: MethylPREDNISolone 125 MG/2 ML Vial IV (07:15)
--- NOTE | 2023-11-15 07:25 | RAD_ITS ---
INDICATION: cough EXAMINATION/TECHNIQUE: X-RAY - XR Chest 1 View COMPARISON: 2022 FINDINGS: LINES/DEVICES: None. LUNGS: The lungs are well expanded. There are streaky and patchy opacities in the mid and lower lungs bilaterally and diffuse bronchial wall thickening. No significant pleural effusion. No pneumothorax. MEDIASTINUM AND CARDIOVASCULAR STRUCTURES: Cardiac silhouette remains enlarged. Central airways and mediastinal contour are otherwise unremarkable. BONES AND SOFT TISSUES: Unremarkable. RAD/Chest 1 View (Portable) IMPRESSION: Diffuse bronchial wall thickening and accompanying streaky airspace opacities in the mid and lower lungs bilaterally compatible with bronchitis / atypical infection. Electronically Signed: Joshua Dutton MD at 8:07 EST ,
[2023-11-15 07:30] LABS: Absolute Lymphocyte Count 0.65 X10^3/uL (0.83-4.51); Absolute Neutrophil Count 4.8 X10^3/uL (2.0-7.7); Basophil# 0.02 X10^3/uL; Basophil% 0.3 % (0-1); Eosinophil# 0.03 X10^3/uL; Eosinophils% 0.5 % (0-5); Hematocrit 30.7 % (40-54); Hemoglobin 9.6 g/dL (13.0-16.5); Lymphocyte # 0.65 X10^3/ul (0.83-4.51); Lymphocyte % 10.2 % (19-41); Mean Corp Hgb Conc 31.3 g/dL (32-36); Mean Corpuscular Hgb 28.3 pg (27.0-32.0); Mean Corpuscular Volume 90.6 fL (80-94); Mean Platelet Vol. 10.5 fl (6.2-12.0); Monocyte# 0.86 X10^3/uL; Monocyte% 13.5 % (0-10); NRBC Flagged by Analyzer 0 % (0-5); Neutrophil # 4.75 X10^3/uL (2.7-7.7); Neutrophil % 74.9 % (47-70); POSITIVE COUNT YES; Platelet Count 84 K/mm3 (150-450); RBC Distribution Width CV 13.3 % (11.6-14.6); Red Blood Count 3.39 M/mm3 (4.6-6.2); White Blood Count 6.4 K/mm3 (4.4-11.0)
[2023-11-15 07:44] LABS: Anion Gap 4 (5-15); BUN 35 mg/dL (7-18); Calcium,Total 9.5 mg/dL (8.5-10.1); Chloride 106 mmol/L (98-107); Creatinine, Serum 2.33 mg/dL (0.70-1.30); EST Glomerular Filtration Rate 31 mL/min (>60); Est Glom Filt Rate - Afr Amer 38 mL/min (>60); Estimated Creatinine Clearance 30.35 ml/min; Glucose 81 mg/dL (74-106); Magnesium 1.8 mg/dL (1.6-2.6); Potassium 5.4 mmol/L (3.5-5.1); Sodium Level 136 mmol/L (136-145)
--- NOTE | 2023-11-15 08:29 | PCM.HP.STD ---
HPI - General General Date of Admission: 11/15/23 Date of Service: 11/15/23 Chief Complaint: Shortness of breath, fevers/chills and muscle aches HPI Narrative MARIAN BARROSO, is a 53 M who presented to [facility] ED on 11/15/2023 with multiple concerns including shortness of breath at rest, fevers and chills and muscle aches. Patient seen at bedside on the floor shortly after coming over from the ED. Patient was sitting up in bed, conversing normally, no acute distress. Patient was moderately fatigued appearing and appeared mildly flushed on exam. He was breathing comfortably on 5 L nasal cannula. Patient lives at home with his , has fairly good functional status at baseline. Does have history of COPD secondary to smoking but quit smoking roughly 12 years ago. He does not wear any home oxygen. No history of significant COPD exacerbations. Patient does have a history of kidney failure with kidney transplantation x 2, first in 1993 and again in 2009, currently has CKD stage IV. Patient does take mycophenolate mofetil and tacrolimus for immunosuppression, also takes Bactrim for PCP prophylaxis. Patient also has history of CAD with bypass surgery roughly 20 years ago. Patient states that he was in his normal state of health until about 2 days ago. Since then, he has developed fevers and chills with muscle aches and worsening shortness of breath with mild wheezing at rest. Patient was positive for influenza A in the ED. He reports a mild cough with no sputum production. Patient received a breathing treatment in the ED as well as a dose of IV steroids and states his breathing feels much more comfortable at this time. Was also given a dose of IV morphine and a dose of IV Zofran with improvement in the symptoms as well. Patient currently reports feeling fatigued otherwise denies any other acute pain or discomfort. No other acute concerns this time. 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 Neurogenic bladder VIC (obstructive sleep apnea) Pulmonary embolism PVD (peripheral vascular disease) Home Medications aspirin 81 mg chewable tablet 81 mg PO DAILY health maintenance 05/18/14 [History Last Taken 07/21/19] doxazosin 8 mg tablet (Cardura) 8 mg PO DAILY BLADDER 02/21/14 [History Last Taken 07/21/19] mycophenolate mofetil 500 mg tablet 500 mg PO BID ANTI-REJECTION 02/21/14 [History Last Taken 07/21/19] omeprazole 20 mg capsule,delayed release 20 mg PO DAILY ACID REFLUX 02/21/14 [History Last Taken 07/21/19] magnesium oxide 400 mg (241.3 mg magnesium) tablet (MgO) 400 mg PO BID SUPPLEMENT 12/25/17 [History Last Taken 07/21/19] atorvastatin 80 mg tablet 80 mg PO DAILY cholesterol 12/30/17 [History Last Taken 07/21/19] carvedilol 25 mg tablet 25 mg PO BID blood pressure 12/30/17 [History Last Taken 07/21/19] albuterol sulfate 90 mcg/actuation aerosol inhaler 1 - 2 puff inhalation Q4H PRN PRN Shortness Of Breath ##1 07/24/19 [Rx Last Taken Unknown] albuterol sulfate 2.5 mg/3 mL (0.083 %) solution for nebulization 2.5 mg inhalation Q4H PRN shortness of breath or wheezing 10/03/21 [History Last Taken Unknown] prednisone 5 mg tablet 5 mg PO DAILY 10/04/21 [History Last Taken Unknown] sulfamethoxazole 400 mg-trimethoprim 80 mg tablet (Bactrim) 1 tab PO DAILY 10/04/21 [History Last Taken Unknown] tacrolimus 0.5 mg capsule,extended release 24 hr (Astagraf XL) 2 mg PO DAILY 10/04/21 [History Last Taken Unknown] albuterol sulfate 2.5 mg/3 mL (0.083 %) solution for nebulization 2.5 mg (3 mL) inhalation Q4H PRN PRN shortness of breath or wheezing #25 vials 07/27/22 [Rx Last Taken Unknown] acetaminophen 500 mg tablet 1,000 mg PO Q8 PRN fever or pain 11/15/23 [History Last Taken Unknown] amlodipine 5 mg tablet (Norvasc) 5 mg PO DAILY 11/15/23 [History Last Taken Unknown] Allergy/AdvReac Type Severity Reaction Status Date / Time propoxyphene napsylate Allergy Hives Verified 11/15/23 06:36 [From Joel-N] venom-honey bee Allergy Hives Verified 11/15/23 06:36 [bee venom (honey bee)] Family History Father Arthritis Cancer Lung cancer, 1990 CAD (coronary artery disease) Mother CAD (coronary artery disease) Diet 2012 Surgical History History of lung biopsy (~2007) History of renal transplant Renal transplant recipient S/P pericardial window creation (~1991) Social History Smoking Status: Former smoker pack-years: 19 Tobacco: How many years used: 15 ROS Constitutional Constitutional: Reports chills, fatigue, fever(s) and malaise; Denies weakness Eyes Eyes: Denies change in vision ENT HEENT: Reports sore throat; Denies nasal congestion, nasal discharge, post nasal drip or sinus pressure Cardiovascular Cardiovascular: Reports dyspnea on exertion; Denies chest pain, edema, lightheadedness, palpitations, rapid heart rate or syncope Respiratory/Chest Respiratory/Chest: Reports cough, shortness of breath at rest and shortness of breath with exertion; Denies productive cough or wheezing Gastrointestinal Gastrointestinal: Reports nausea; Denies abdominal pain, constipation, diarrhea or vomiting Genitourinary Genitourinary: Denies dysuria Musculoskeletal Musculoskeletal: Reports myalgias; Denies arthralgias or back pain Neurologic Neurologic: Denies dizziness, focal weakness or headache(s) Vital Signs Vital Signs Vital Signs: 11/15/23 06:32 11/15/23 07:02 11/15/23 07:19 Temperature 99.6 F H Temperature Source Temporal Pulse Rate 80 70 77 Respiratory Rate 28 H 25 H 24 H Respiratory Pattern Tachypnea Blood Pressure 144/77 H 149/67 H Blood Pressure Mean 99 94 Pulse Ox 80 92 Oxygen Delivery Method Room Air Nasal Cannula Oxygen Flow Rate (L/min) 5 5 Weight Weight: 63.6 kg Body Mass Index (BMI) 24.0 Physical Exam Const alert, oriented x3, no apparent distress and average body habitus Constitutional Narrative: Pleasant middle-aged male, fatigued appearing, otherwise sitting up fairly comfortably in bed, conversing normally, no acute distress. General Appearance: cooperative and comfortable HEENT normocephalic, head/scalp atraumatic, hearing grossly normal bilaterally and nasal mucous membranes and turbinates normal HEENT Narrative: Dry mucous membranes. Eyes PERRL, EOMs intact bilaterally and conjunctivae normal Neck full ROM, no lymphadenopathy and supple Lymph Lymphatic: no lymphadenopathy noted Chest inspection of chest normal Resp Resp Narrative: Breathing comfortably on 5 L nasal cannula. No upper airway wheezing noted. No crackles noted. Mildly decreased air movement in bilateral lung bases but otherwise fairly good air movement in upper lung pierson. Cardio regular rate, regular rhythm, no murmurs and peripheral pulses 2+ throughout GI normal to inspection, nondistended, normoactive bowel sounds, soft to palpation, non-tender and non-distended Back/Spine normal ROM Extremity normal to inspection, full ROM and no pedal edema Skin no rashes or lesions noted Neuro moves all extremities and no focal motor deficits Speech: speech normal Psych mental status grossly normal Results Lab / Micro Data 11/15/23 07:13 11/15/23 07:13 Labs: Laboratory Results - last 24 hr 11/15/23 07:13: WBC 6.4, RBC 3.39 L, Hgb 9.6 L, Hct 30.7 L, MCV 90.6, MCH 28.3, MCHC 31.3 L, RDW Std Deviation 44.0 H, RDW Coeff of Adamaris 13.3, Plt Count 84 L, MPV 10.5, Immature Gran % (Auto) 0.600, Neut % (Auto) 74.9 H, Lymph % (Auto) 10.2 L, Delta % (Auto) 13.5 H, Eos % (Auto) 0.5, Baso % (Auto) 0.3, Absolute Neuts (auto) 4.8, Absolute Lymphs (auto) 0.65 L, Nucleated RBC % 0, Sodium 136, Potassium 5.4 H, Chloride 106, Carbon Dioxide 26.0, Anion Gap 4 L, BUN 35 H, Creatinine 2.33 H, Estim Creat Clear Calc 30.35, Est GFR (MDRD) Af Amer 38 L, Est GFR (MDRD) Non-Af 31 L, BUN/Creatinine Ratio 15.0, Glucose 81, Calcium 9.5, Magnesium 1.8 Micro: Microbiology 11/15/23 07:13 Mucosa - Nose SARS-CoV-2, Influenza & RSV (PCR) - Final Influenzae A Assessment & Plan Assessment/Plan (1) Hypoxia: (2) Influenza A: (3) Immunosuppressed status: (4) COPD exacerbation: (5) CHF exacerbation: PLAN: Plan Patient is a 53-year-old male who presented to [facility] ED on 11/15/2023 with shortness of breath, fever/chills and myalgias. 1. Influenza A infection, mild COPD exacerbation with acute hypoxia, suspected CHF exacerbation Influenza A positive on admit. Chest x-ray showed diffuse bronchial wall thickening with streaky airspace opacities in mid and lower lungs bilaterally. Not on home O2, requiring up to 5 L nasal cannula in ED due to hypoxia. Low-grade fever with mild tachypnea on admit, otherwise hemodynamically stable. WBC count normal. TTE 11/15 showed EF 65%, stage II diastolic dysfunction, mild concentric LV hypertrophy, mildly enlarged LA, no significant valvular disease. BNP 594, worsened from previous. ? Admit under inpatient status to PCU. Treat with IV steroids, scheduled DuoNebs, Tamiflu for now. Will also treat with IV Lasix 40 mg daily for now, monitor urine output and daily BMP. Sputum culture, blood cultures ordered. Procalcitonin ordered. Will hold on antibiotics for now. 2. CKD stage IV, history of renal transplant x 2 last in 2009 ? Creatinine 2.33 on admit, baseline creatinine unclear, last creatinine was 2.30 back in 01/2023. Treating with IV Lasix as noted above. Monitor daily BMP and urine output. Continue home mycophenolate mofetil and tacrolimus. Continue home Bactrim. 3. History of CAD with remote CABG, hypertension, hyperlipidemia ? Normotensive to slightly hypertensive on admission. Continue home aspirin and statin. Holding home amlodipine and carvedilol for now, restart when able. Chronic medical conditions: ? GERD: Continue home PPI. ? BPH with LUTS: Continue home doxazosin. ? Neuropathy: Continue home gabapentin. ? Chronic anemia: Hemoglobin 9.6 on admit, baseline hemoglobin appears to be around 9-11. Follow-up a.m. CBC. DVT prophylaxis: Heparin subcu CODE STATUS: Full code, verified Expected disposition: Home, 2 to 3 days Total clinical time spent by myself addressing the patient's medical issues, reviewing all the data, and collaborating with patient's care team: 55 minutes. Charges/Coding Visit Charges Inpatient E&M: 34291 Init Hosp L2
--- NOTE | 2023-11-15 08:39 | EX.ED.DYSGE1 ---
HPI History of Present Illness Chief Complaint: Shortness of Breath Informant: patient Narrative Narrative: Patient is a 53-year-old male with past medical history of hypertension and coronary artery disease status post bypass roughly 20 years ago as well as reported CHF. He also states he has a history of COPD but quit smoking roughly 12 years ago. He reports he does not need supplemental oxygen at baseline. He states that over the last 1 to 2 days he developed a fever of 101 with muscle aches fatigue cough and shortness of breath. 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 Neurogenic bladder VIC (obstructive sleep apnea) Pulmonary embolism PVD (peripheral vascular disease) Home Medications aspirin 81 mg chewable tablet 81 mg PO DAILY health maintenance 02/21/14 [History Last Taken 07/21/19] doxazosin 8 mg tablet (Cardura) 8 mg PO DAILY BLADDER 02/21/14 [History Last Taken 07/21/19] mycophenolate mofetil 500 mg tablet 250 mg PO BID ANTI-REJECTION 02/21/14 [History Last Taken 07/21/19] omeprazole 20 mg capsule,delayed release 20 mg PO DAILY ACID REFLUX 02/21/14 [History Last Taken 07/21/19] magnesium oxide 400 mg (241.3 mg magnesium) tablet (MgO) 400 mg PO BID SUPPLEMENT 12/25/17 [History Last Taken 07/21/19] umeclidinium 62.5 mcg-vilanterol 25 mcg/actuation powdr for inhalation (Anoro Ellipta) 1 puff inhalation QHS BREATHING 12/25/17 [History Last Taken 07/21/19] amlodipine 5 mg tablet 5 mg PO DAILY blood pressure 12/30/17 [History Last Taken 07/21/19] atorvastatin 80 mg tablet 80 mg PO DAILY cholesterol 12/30/17 [History Last Taken 07/21/19] carvedilol 25 mg tablet 25 mg PO BID blood pressure 12/30/17 [History Last Taken 07/21/19] acetaminophen 500 mg tablet 1,000 mg (2 x 500 mg) PO Q8 10/18/19 [Rx Last Taken Unknown] albuterol sulfate 90 mcg/actuation aerosol inhaler 1 - 2 puff inhalation Q4H PRN PRN Shortness Of Breath ##1 07/24/19 [Rx Last Taken Unknown] albuterol sulfate 2.5 mg/3 mL (0.083 %) solution for nebulization 2.5 mg inhalation Q4H PRN 10/03/21 [History Last Taken Unknown] gabapentin 300 mg capsule (Neurontin) 600 mg PO TID 10/03/21 [History Last Taken Unknown] prednisone 5 mg tablet 5 mg PO DAILY 10/04/21 [History Last Taken Unknown] sulfamethoxazole 400 mg-trimethoprim 80 mg tablet (Bactrim) 1 tab PO DAILY 10/04/21 [History Last Taken Unknown] tacrolimus 0.5 mg capsule,extended release 24 hr (Astagraf XL) 0.5 mg PO DAILY 10/04/21 [History Last Taken Unknown] albuterol sulfate 2.5 mg/3 mL (0.083 %) solution for nebulization 2.5 mg (3 mL) inhalation Q4H PRN PRN shortness of breath or wheezing #25 vials 07/27/22 [Rx Last Taken Unknown] promethazine-DM 6.25 mg-15 mg/5 mL oral syrup 5 ml PO Q6H PRN cough #118 mL 07/27/22 [Rx Last Taken Unknown] cephalexin 500 mg capsule 500 mg PO TID 7 days #21 caps 01/06/23 [Rx Last Taken Unknown] Allergy/AdvReac Type Severity Reaction Status Date / Time propoxyphene napsylate Allergy Hives Verified 11/15/23 06:36 [From Darvocet-N] venom-honey bee Allergy Hives Verified 11/15/23 06:36 [bee venom (honey bee)] Family History Father Arthritis Cancer Lung cancer, 1990 CAD (coronary artery disease) Mother CAD (coronary artery disease) Diet 2012 Surgical History History of lung biopsy (~2007) History of renal transplant Renal transplant recipient S/P pericardial window creation (~1991) Social History Smoking Status: Former smoker pack-years: 19 Tobacco: How many years used: 15 ROS ROS ED Constitutional Constitutional ED: Reports chills and fever(s) ENT ENT ED: Reports rhinorrhea and sore throat Cardiovascular Cardiovascular: Denies chest pain Respiratory/Chest Respiratory/Chest: Reports cough and dyspnea Gastrointestinal Gastrointestinal: Denies abdominal pain, diarrhea, nausea or vomiting Genitourinary Genitourinary ED: Denies dysuria Musculoskeletal Musculoskeletal: Reports myalgias Integumentary Denies rash Neurologic Neurologic: Reports headache(s) Hematologic/Lymphatic Hematologic/Lymphatic: Denies easy bleeding or easy bruising EXAM Physical Exam Const Vital Signs: 11/15/23 06:32 11/15/23 07:02 11/15/23 07:19 Temperature 99.6 F H Temperature Source Temporal Pulse Rate 80 70 77 Respiratory Rate 28 H 25 H 24 H Respiratory Pattern Tachypnea Blood Pressure 144/77 H 149/67 H Blood Pressure Mean 99 94 Pulse Ox 80 92 Oxygen Delivery Method Room Air Nasal Cannula Oxygen Flow Rate (L/min) 5 5 Positive well nourished and well developed General Appearance ED: well developed HEENT HEENT Narrative: Patient has an ulceration in the middle portion of his lower lip which he states is secondary to previous skin cancer for which it was removed by the wire wheeler a few weeks ago. Otherwise no oral lesions are noted no tongue or lip swelling Cobblestoning is noted in the posterior pharynx consistent with sinus drainage without airway edema or compromise Eyes PERRL and EOMs intact bilaterally Neck supple Neck Narrative: No nuchal rigidity or meningeal signs noted Chest Wall palpation of chest normal Resp Resp Narrative: Patient is tachypneic with accessory muscle use and breath sounds are diminished throughout with diffuse expiratory wheeze Cardio regular rate and regular rhythm Rate: other Other Details: Radial and carotid pulses are equal and symmetric GI normal to inspection, nondistended, normoactive bowel sounds, non-tender, non-distended and no masses Auscultation: normoactive bowel sounds Palpation: soft Extremity normal to inspection Extremity Narrative: No asymmetric edema no pitting edema negative Homans' sign bilaterally Neuro oriented x3, CN's II-XII intact bilaterally and no sensory deficits noted Sensorium / Orientation: alert Motor Exam: strength 5/5 throughout Psych Psych Narrative: Patient has a flat affect Skin Skin Narrative: Lesion to the lip which is secondary to recent skin cancer removal as documented above MDM MDM MDM Narrative Medical decision making narrative: Patient presented to the ER with low-grade fever as well as respiratory distress with a room air pulse ox of 80%. He denied any need for supplemental oxygen at home. With him reporting fever headache muscle aches and shortness of breath there is concern for influenza versus COVID versus pneumonia versus pneumothorax versus congestive heart failure. Patient blood work was obtained which shows chronic kidney disease with a creatinine of 2.33 which is near his baseline and Anemia at 9.6 and thrombocytopenia with platelet count at 84 which chart review reveals is chronic in nature and also near baseline. The patient's chest x-ray showed mild haziness concerning for developing infiltrate versus congestive heart failure. Secondary to his he was given 40 mg of IV Lasix and he was also started on Tamiflu secondary to his influenza A diagnosis. At this time the patient is requiring supplemental oxygen to keep his sats greater than 90% and he does not have this available at home so therefore is not safe for discharge. The case was discussed with medicine on-call and they do agree to except the patient at this time and therefore will be admitted to their service for further care. History & Record Review Discussion w/independent historian: Patient Lab Data Attestation: I reviewed the patient's lab results. Labs: Laboratory Results - last 24 hr 11/15/23 07:13 WBC 6.4 RBC 3.39 L Hgb 9.6 L Hct 30.7 L MCV 90.6 MCH 28.3 MCHC 31.3 L RDW Std Deviation 44.0 H RDW Coeff of Adamaris 13.3 Plt Count 84 L MPV 10.5 Immature Gran % (Auto) 0.600 Neut % (Auto) 74.9 H Lymph % (Auto) 10.2 L [place] % (Auto) 13.5 H Eos % (Auto) 0.5 Baso % (Auto) 0.3 Absolute Neuts (auto) 4.8 Absolute Lymphs (auto) 0.65 L Nucleated RBC % 0 Sodium 136 Potassium 5.4 H Chloride 106 Carbon Dioxide 26.0 Anion Gap 4 L BUN 35 H Creatinine 2.33 H Estim Creat Clear Calc 30.35 Est GFR (MDRD) Af Amer 38 L Est GFR (MDRD) Non-Af 31 L BUN/Creatinine Ratio 15.0 Glucose 81 Calcium 9.5 Magnesium 1.8 Radiography Diagnostic Testing: Chest x-ray as interpreted by the emergency medicine physician reveals bibasilar haziness concerning for pulmonary edema versus developing infiltrate Management Discussion w/another healthcare provider: Hospitalist Critical Care Time Critical Care Time: Yes Critical care time (excluding procedures): 30-74 minutes, Discussing w/Patient &/or Family/Process Server, Discussing w/Consultants and - (Critical care time of 31 minutes) Discharge Plan Triage Chief Complaint: Shortness of Breath ED Provider: Zhou Hines Dx/Rx/DC Orders Clinical Impression: Influenza A, Chronic kidney disease, Thrombocytopenia, Hypoxia, Chronic anemia Prescriptions: No Action albuterol sulfate 2.5 mg /3 mL (0.083 %) solution for nebulization 2.5 mg inhalation Q4H PRN gabapentin [Neurontin] 300 mg capsule 600 mg PO TID prednisone 5 mg tablet 5 mg PO DAILY sulfamethoxazole-trimethoprim [Bactrim] 400-80 mg tablet 1 tab PO DAILY Astagraf XL 0.5 mg capsule,extended release 24hr 0.5 mg PO DAILY Rx Instructions: must administer in the morning on an empty stomach, 1 hour before or 2 hours after a meal mycophenolate mofetil 500 MG tablet 250 mg PO BID Patient Comments: Anti-rejection medication doxazosin [Cardura] 8 MG tablet 8 mg PO DAILY omeprazole 20 MG capsule 20 mg PO DAILY Patient Comments: acid reflux, gastric irritation aspirin 81 MG tablet,chewable 81 mg PO DAILY Patient Comments: blood thinner magnesium oxide [MgO] 400 MG tablet 400 mg PO BID umeclidinium-vilanterol [Anoro Ellipta] 1 EACH blister with device 1 puff inhalation QHS Patient Comments: INHALE 1 INHALATION INSTRUCTED ONCE DAILY. atorvastatin 80 MG tablet 80 mg PO DAILY Patient Comments: carvedilol 25 MG tablet 25 mg PO BID Patient Comments: amlodipine 5 MG tablet 5 mg PO DAILY Patient Comments: acetaminophen 500 MG tablet 1,000 mg PO Q8 0RF albuterol sulfate 1 INHALER inhaler 1 - 2 puff inhalation Q4H PRN PRN (Reason: Shortness Of Breath) Qty: 1 0RF albuterol sulfate 2.5 mg /3 mL (0.083 %) solution for nebulization 2.5 mg inhalation Q4H PRN PRN (Reason: shortness of breath or wheezing) Qty: 25 0RF Rx Instructions: Use q4 hours and PRN for wheezing promethazine-DM 6.25-15 mg/5 mL syrup 5 ml PO Q6H PRN (Reason: cough) Qty: 118 0RF cephalexin 500 mg capsule 500 mg PO TID 7 Days Qty: 21 0RF Primary Care Provider: Diana Tate Referrals: Diana Tate PA [Primary Care Provider] - Disposition Disposition: Acute Care Hospital [facility]
[2023-11-15] MEDS: Oseltamivir Phosphate 75 MG Capsule PO (08:54)
[2023-11-15 09:12] LABS: Blood Gas Specimen Type VEN; O2 Delivery Device Cannula; SITE Not entered; VBG BASE EXCESS -4 mmol/L (-1.0-3.5); VBG Bicarbonate 22 mmol/L (22-26); VBG PO2 83 mmHg (25-40); VBG SO2 95 % (50-70); VBG TCO2 23 mmol/L (23-33); VBG pCO2 40.9 mmHg (41-51); VBG pH 7.33 (7.32-7.42)
[2023-11-15 09:29] LABS: BNP,B-Type NATRIURETIC PEPTIDE 594.4 pg/mL (0-100)
--- OUTSIDE RECORDS SUMMARY | 2023-11-15 09:29 | XMS RPT_ITS | CCD ---
Author Name Unknown Address [address] [place] [address] Organization [facility] Care Team Providers Care Deck Mechanic Name Role Phone DAMEON MACNETH Unavailable Unavailable [...] Diana Will Primary Care Provider Unavaila forrest Garrettell Ashley Unavailable Unavailable Verito, [place] Unavailable Unavailable [...] Unavailable Tate, M Ines Primary Care Provider [phone] Amado VESSEL TRAFFIC OFFICER - Jennifer SHELBY Unavailable ASIA CHA Attending Unavailable ASIA CHA Referring Unavailable TATE, M Primary Care Unavailable JENNIFER SUTTON Attending Unavailable TATE, M Primary Care Unavailable [...] TATE, M INES Referring Unavailable Bill BURT [place] Primary Care Provider Allergies Allergy Classification Reported Allergen(s) Allergy Type Date of Onset Reaction(s) Facility Bee/Wasp/Ant Venom (1 source) bee venom Substance Allergy 8 Hives [facility] (20 sources) BEE STING; Translations: [BEE STING] Propensity to adverse reactions (disorder) 0 Hives, Swelling [facility] Repository (20 sources) PROPOXYPHENE N-ACETAMINOPHEN; Translations: [PROPOXYPHENE N-ACETAMINOPHEN] Propensity to adverse reactions (disorder) [facility] Rep[facility] (14 sources) Propoxyphene; Translations: [propoxyphene] Drug Allergy 9 Josie -Nephrology -[facility] [place] [address] Work Phone: (4 sources) bee venom Propensity to adverse reactions to drug 8 [facility] [place], [place] Medications Current Medications Medication Drug [...] disease (20 sources) Atherosclerotic heart disease of tangirnaq coronary artery without angina pectoris; Translations: [Coronary [...] and visceral atherosclerosis (20 sources) Atherosclerosis of tangirnaq arteries of extremities with intermittent claudication, bilateral [...] Translations: [Renal failure, chronic, stage 3 (moderate) ([facility])] Onset: 8 Screening and history of mental [...] 08-27-2019 Episodic Other aftercare (3 sources) Other assisted (current) drug therapy; Translations: [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] Onset: 9 Episodic Other [...] 27.89 kg/m2 Brigette Sellers MD Work Phone: [facility] 11-13-2023 08:49-0500 Body temperature 98.2 [degF] Brigette Sellers MD Work Phone: [facility] 11-13-2023 08:49-0500 Body weight 64.77 kg Brigette Sellers MD Work Phone: [facility] 11-13-2023 08:49-0500 Diastolic blood pressure 61 mm[Hg] Brigette Sellers MD Work Phone: [facility] 11-13-2023 08:49-0500 Heart rate 66 /min Brigette Sellers MD Work Phone: [facility] 11-13-2023 08:49-0500 SaO2% (BldA) [Mass fraction] 98 % Brigette Sellers MD Work Phone: [facility] 11-13-2023 08:49-0500 Systolic blood pressure 135 mm[Hg] Brigette Sellers MD Work Phone: [facility] 08-05-2023 15:29-0400 Body temperature 97.9 [degF] Estiven Cole MD Work Phone: [facility] 08-05-2023 15:29-0400 Body weight 61.6 kg Estiven Cole MD Work Phone: [facility] 08-05-2023 15:29-0400 Diastolic blood pressure 73 mm[Hg] Estiven Cole MD Work Phone: [facility] 08-05-2023 15:29-0400 Heart rate 64 /min Estiven Cole MD Work Phone: [facility] 08-05-2023 15:29-0400 Respiratory rate 18 /min Estiven Cole MD Work Phone: [facility] 08-05-2023 15:29-0400 SaO2% (BldA) [Mass fraction] 99 % Estiven Cole MD Work Phone: [facility] 08-05-2023 15:29-0400 Systolic blood pressure 141 mm[Hg] Estiven Cole MD Work Phone: [facility] 05-27-2023 09:22-0400 Body height 165.1 cm Jennifer Sutton VESSEL TRAFFIC OFFICER - CHIP FRIER Work Phone: [facility] 05-27-2023 09:22-0400 Body mass index (BMI) [Ratio] 23.81 kg/m2 Jennifer Sutton VESSEL TRAFFIC OFFICER - CHIP FRIER Work Phone: [facility] 05-27-2023 09:22-0400 Body weight 64.91 kg Jennifer Sutton VESSEL TRAFFIC OFFICER - CHIP FRIER Work Phone: [facility] 05-27-2023 09:22-0400 Heart rate 81 /min Jennifer Sutton VESSEL TRAFFIC OFFICER - CHIP FRIER Work Phone: [facility] 05-27-2023 09:22-0400 Respiratory rate 18 /min Jennifer Sutton VESSEL TRAFFIC OFFICER - CHIP FRIER Work Phone: [employer] Encounters Encounter Date Encounter Type Care Provider Facility Start: 11-13-2023 End: 11-13-2023 Office outpatient visit 25 minutes Brigette Sellers MD Work Phone: [facility] Procedures Date Procedure Procedure Detail Performing Clinician Start: 03-20-2023 STREP Александр MOLECULAR (POC) Olivia ackerman VESSEL TRAFFIC OFFICER.CHIP FRIER Work Phone: Start: 03-20-2023 Dup-scan lxtr art/artl [...] DTaP/Tdap/Td Vaccines (3 - Td or Tdap) [facility] Start: 01-25-2032 Urine microalbumin profile DTaP,Tdap,Td Vaccine (2 - Td or Tdap) [facility] Start: 06-14-2031 Colonoscopy COLONOSCOPY [facility] Start: 06-14-2031 COLORECTAL CANCER SCREENING COLORECTAL CANCER SCREENING [facility] Start: 10-19-2027 Lipid 1996 panel - Serum or Plasma Lipid Screening [facility] Start: 10-19-2027 LIPID SCREEN LIPID SCREEN [facility] Start: 10-19-2025 DIABETES SCREEN DIABETES SCREEN [facility] Start: 10-19-2025 Diabetes Screening Diabetes Screening [facility] Start: 10-01-2025 Screening for osteoporosis Bone Density Scan [facility] Start: 04-25-2025 LIPID SCREEN LIPID SCREEN [facility] Start: 06-05-2024 DIABETES SCREEN DIABETES SCREEN [facility] Start: 05-27-2024 Serum Creatinine Serum Creatinine [facility] Start: 03-26-2024 ANNUAL PCP TEAM CHRONIC DISEASE VISIT ANNUAL PCP TEAM CHRONIC DISEASE VISIT [facility] Start: 01-15-2024 End: 01-15-2024 Patient encounter procedure 01/15/2024 8:20 AM EDT Office Visit [address] [id number] [facility] Start: 11-13-2023 LEISA, Provider: Brigette Sellers, Status: Pen, Time: 8:40 AM LOTUSFUVMALECIA, Provider: Brigette Sellers, Status: Pen, Time: 8:40 AM BG-Lqcafdebgr-Dcvaxo Work Phone: Start: 10-19-2023 HEMOGLOBIN/HEMATOCRIT HEMOGLOBIN/HEMATOCRIT [facility] Start: 10-19-2023 Hepatitis B surface antibody level LDL CHOLESTEROL [facility] Start: 10-19-2023 SERUM CREATININE SERUM CREATININE [facility] Start: 09-14-2023 ANNUAL PCP TEAM CHRONIC DISEASE VISIT ANNUAL PCP TEAM CHRONIC DISEASE VISIT [facility] Start: 06-12-2023 End: 06-12-2023 Patient encounter procedure 06/12/2023 8:20 AM EDT Appointment [facility] [address] [place] [address] [facility] Start: 06-07-2023 Influenza vaccination [facility] Start: 02-19-2023 ANNUAL PCP TEAM CHRONIC DISEASE VISIT ANNUAL PCP TEAM CHRONIC DISEASE VISIT [facility] Start: 10-22-2022 End: 12-22-2022 Calcium.ionized [Moles/volume] in Blood CALCIUM IONIZED BLOOD Lab Routine Hyperparathyroidism (HCC) Renal failure, chronic, stage 3 (moderate) (HCC) Other osteoporosis without current pathological fracture Expected: 10/22/2022, Expires: 12/22/2022 [facility] Work Phone: Immunizations Immunization Date Immunization Notes Care Provider James fish 08-28-2018 influenza virus vacc ine, unspecified formulation Asia Cha PA-C Work Phone: [facility] 08-07-2018 influenza, injectabl e, quadrivalent, contains preservative Sawyer Garay PA-C Work Phone: [facility] Work Phone: 12-06-2011 pneumococcal polysaccharide vaccine, 23 valent Sharifa Vegas [facility] 10-06-2009 tetanus and diphther ia toxoids, not adsorbed, for adult use Sawyer Garay PA-C Work Phone: [facility] 10-06-2009 tetanus toxoid, redu miroslava diphtheria toxoid, and acellular pertussis vaccine, adsorbed Sharifa [place], [place] Payers Date Payer Category Payer Unknown 2020 Unknown [employer] SS PPO [id number] 2020-Present [phone] [address] [place] [address] PPO [id number] 2016 Unknown [employer] SUPP xxxxxxxxxxxx 2016-Present [address] [place] [address] xxxxxxxxxxxx [id number] 2016 Unknown [id number] 1969 Unknown [id number] 1969 Unknown [id number] 1969 Unknown [id number] 1969 Unknown [id number] 1969 Unknown [id number] 1969 Unknown [id number] Medicare [id number] Social History Date Type Detail Facility Assertion Unknown if ever smoked [facility] phrology-[facility] [place] [address] Work Phone: Start: 03-01-2020 End: 07-23-2022 Tobacco smoking status NHIS Former smoker [facility] End: 09-06-2011 History of tobacco use Current smoker [facility] End: 09-06-2011 History of tobacco use [facility]: 03-01-2020 End: 02-15-2023 Cigarettes smoked current (pack per day) - Reported [facility] History of tobacco use Chews Tobacco [facility] [place] Start: 03-01-2020 End: 08-05-2023 Alcohol intake Current non-drinker of alcohol (finding) [facility] [place], [place] Start: 1970 Sex Assigned At Not on file [facility] [employer] [place], [place] Exposure to SARS-CoV -2 (event) Unable to assess [facility] Start: 03-01-2020 End: 07-23-2022 Tobacco use and exposure [facility] Start: 11-15-2020 End: 09-09-2022 History SDOH Alcohol Frequency 1 [facility] Start: 11-15-2020 History SDOH Alcohol Std Drinks 98 [facility] Start: 11-15-2020 History SDOH Social Connections Phone 4 [facility] Start: 11-15-2020 End: 09-09-2022 History SDOH Social Connections Get Together 2 [facility] Start: 11-15-2020 End: 09-09-2022 History SDOH Social Connections Living 3 [facility] Start: 11-15-2020 End: 09-09-2022 History SDOH Financial 5 [facility] Start: 11-15-2020 Education 10 [facility] Start: 1970 Sex Assigned At Male [facility] Start: 02-24-2022 End: 11-13-2023 Exposure to SARS-CoV-2 (event) Not sure [facility] Start: 09-09-2022 History SDOH Alcohol Std Drinks 0 [facility] Start: 09-09-2022 History SDOH Physical Activity MPS 6 [facility] Start: 02-15-2023 End: 05-27-2023 Gender identity Not on file [facility] Do you belong to any clubs or organizations such as yazidi groups, unions, fraternal or athletic groups, or school groups? No [facility] Are you now , , , , never or living with a partner? [facility] How often to you hav e a drink containing alcohol? Never [facility] How many standard dr inks containing alcohol do you have on a typical day? Patient does not drink [facility] Do you feel stress - tense, restless, nervous, or anxious, or unable to sleep at night because your mind is troubled all the time - these days [OSQ] To some extent [facility] (I/We) worried wherenzo er (my/our) food would run out before (I/we) got money to buy more. Never true [facility] Start: 05-14-2021 Gender identity Identifies as male gender (finding) [facility] Start: 05-14-2021 Sexual orientation Heterosexual (finding) [facility] Tobacco smoking stat [facility] Tobacco smoking consumption unknown [facility] Work Phone: Medical Equipment Procedure Code Equipment Code Equipment Origin al Text Equipment Identifier Dates [employer] Suturetape 5.5mm Full Thread 1.3mm Black Blue White - [id number] Start: 01-03-2023 Goals Date Patient Goal Desired Activity /State Personal health goal Functional Status Date Assessment Result Facility NEGATED: Highlighted row Functional performance Functional status health issues are not documented Disease [id number] [employer](TM) [employer] [address] Work Phone: Mental Status Date Assessment Result Facility NEGATED: Highlighted row Cognitive function [Interpretation] Cognitive status health issues are not documented Disease [id number] [employer](TM) by [employer] [address] Work Phone: Clinical Notes 02-07-2021 to [...] [facility] documented in this encounter [facility] Work Phone: 10-01-2023 Note HNO ID: [id number] Author: Yariel Villegas RT(R) Service: ? Author [...] RT Andreina(R) October 01, 2023 1:58 PM [facility] 09-26-2023 Note HNO ID: [id number] Author: Diana Tate PA-C Service: ? Author Type: Physician Social Sciences Research Scientist Type: Progress Notes Filed: 09/26/2023 4:11 PM Note Text: 53 year old male with c/o here for routine 6 month med follow up Left hip pain, in 08/05/2023 [facility] + home testing Covid19, rx for prednisone. Recovered. Coronary artery disease involving tangirnaq coronary artery of tangirnaq heart without angina pectoris (primary encounter diagnosis) [...] Abs Lymph 1.00 - 4.00 k/uL 1.07 [place]% % 12.8 Abs [place] <0.87 k/uL 0.63 E[place]% % 2.4 Abs [...] Chronic obstructive pulmonary disease, unspecified copd type ([facility]) Current medications: Albuterol 0.083% nebulizer solution every 4 hours as needed Albuterol HFA 90 mcg per actuation 2 puffs every 4-6 hours Umeclidinium-full Anturol 62.5-25 mcg per actuation 1 inhalation daily No sob or cough, no orthopnea. Recent Covid URI H/o kidney transplant 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ppressive medication ([facility]) ([facility]) Renal failure, chronic, stage 3 (moderate) ([facility]) Hyperparathyroidism ([facility]) Current medications: Alendronate 70 mg [...] tendon. Findings which (more content not included)... [facility] 08-05-2023 Note HNO ID: [id number] Author: Estiven Cole MD Service: ? Author [...] both lower extremities (HCC) 08/22/2017 02/05/[address] Vazqueznic: no stenosis left fem-pop bypass. Unable to get CHEL due to non-compressible vesels11/12/[address] Zavala [facility]: RIGHT: resting CHEL > 1.81, non-compressible arteries; TBI 0.40 = PAD; Right ankle: Moderate disease at rest. Right iliofemoral disease. Severe disease noted, post exercise, by tracings. LEFT SIDE: resting CHEL 1.81, non-compressible vessels, CHEL not accurate. 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 On Sensipar in remote past. Kidney dialysis 1988, and 2000 Neurogenic bladder VIC (obstructive sleep apnea) 08/04/2011 declines CPAP Pulmonary embolism ([facility]) 10-12 years ago Pulmonary nodules Foreign body reaction in pulmonary vasculature, ? cause. Extensive evaluation ruled out vasculitis, fungal inffection, pneumoconiosis. May have been from gortex graft .Resulted in multiple pulmonary nodules. Radiculopathy, lumbar region 11/28/2016 Renal failure 02/20/2010 Renal failure, chronic, stage 3 (moderate) ([facility]) folllowing renal transplant Renal stones Steroid long-term [...] bulge, or effu (more content not included)... [facility] 08-05-2023 History of Present illness Narrative Patient [...] AI 1-2+ Claudication of both lower extremities ([facility]) 08/22/2017 02/05/[address] Jauregui: no stenosis left fem-pop bypass. Unable to get CHEL due to non-compressible vesels11/12/[address] Zavala [facility]: RIGHT: resting CHEL > 1.81, non-compressible arteries; TBI 0.40 = PAD; Right ankle: Moderate disease at rest. Right iliofemoral disease. Severe disease noted, post exercise, by tracings. LEFT SIDE: resting CHEL 1.81, non-compressible vessels, CHEL not accurate. 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 On Sensipar in remote past. Kidney dialysis 1988, and 2000 Neurogenic bladder VIC (obstructive sleep apnea) 08/04/2011 declines CPAP Pulmonary embolism ([facility]) 10-12 years ago Pulmonary nodules Foreign body [...] Estiven Cole MD documented in this encounter [facility] 06-27-2023 Note HNO ID: [id number] Author: Jose Luis Arana APRN.CHIP FRIER Service: ? Author Type: Nurse Practitioner Type: [...] both lower extremities (HCC) 08/22/2017 02/05/[address] Jauregui: no stenosis left fem-pop bypass. Unable to get CHEL due to non-compressible vesels11/12/[address] Zavala [facility]: RIGHT: resting CHEL > 1.81, non-compressible arteries; TBI 0.40 = PAD; Right ankle: Moderate disease at rest. Right iliofemoral disease. Severe disease noted, post exercise, by tracings. LEFT SIDE: resting CHEL 1.81, non-compressible vessels, CHEL not accurate. 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 On Sensipar in remote past. Kidney dialysis 1988, and 2000 Neurogenic bladder VIC (obstructive sleep apnea) 08/04/2011 declines CPAP Pulmonary embolism ([facility]) 10-12 years ago Pulmonary nodules Foreign body reaction in pulmonary vasculature, ? cause. Extensive evaluation ruled out vasculitis, fungal inffection, pneumoconiosis. May have been from gortex graft .Resulted in multiple pulmonary nodules. Radiculopathy, lumbar region 11/28/2016 Renal failure 02/20/2010 Renal failure, chronic, stage 3 (moderate) ([facility]) folllowing renal transplant Renal stones Steroid long-term [...] of Onset Arthriti (more content not included)... [facility] 06-26-2023 Note HNO ID: [id number] Author: Prachi Doss, DO Service: ? Author [...] nerves intact Lef (more content not included)... [facility] 06-26-2023 History of Present illness Narrative Images [...] imaging Prachi Ortiz.P.H. documented in this encounter [facility] 05-30-2023 Telephone encounter Note Patient scheduled for PVR 06/11/23 8:20 @ [address] Left message with prep. Appt reminder mailed. [facility] 05-30-2023 Miscellaneous Notes Patient scheduled for PVR 06/11/23 8:20 @ [address] Left message with prep. Appt reminder mailed. 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 Chest pain CHF (congestive heart failure) ([facility]) ([facility]) CKD (chronic kidney disease) stage 3, GFR 30-59 ml/min ([facility]) COPD (chronic obstructive pulmonary disease) ([facility]) ESRD (end stage renal disease) ([facility]) s/p renal transplant GERD (gastroesophageal reflux disease) History of blood transfusion History of renal transplant HTN (hypertension) Hx of blood clots hx PE 15 YRS AGO Immunosuppressed status ([facility]) Neurogenic bladder NSTEMI (non-ST elevated myocardial infarction) ([facility]) ([facility]) 12/27/2017 Past Surgical History: Past Surgical History: [...] of testing. . documented in this encounter [facility] 03-29-2023 Note HNO ID: [id number] Author: Prachi Doss, DO Service: ? Author [...] Motion Active abdu (more content not included)... [facility] 03-29-2023 History of Present illness Narrative Images [...] Prachi Goldberg.Gurvinder. M.P.H. documented in this encounter [facility] 03-28-2023 Note HNO ID: [id number] Author: Lazaro Gonzalez PT Service: ? Author [...] PLAN OF CARE UPDATE: Assessment: Marian Dsouza Yoder is discontinued from Physical Therapy services due to goal achievement.. Patient was seen for 10 visits from Start of Care Date: 01/25/23 to 03/28/2023 and treatment included: Therapeutic exercise, Manual therapy, Self-nursing home management, and Patient/Family/Caregiver Education. Goals updated 03/28/2023 Goals for Episode of Care: created on 01/25/23 through 05/17/23 Pt will be able to complete work duties without pain or any functional limitations in 14 weeks or less - Met so far [place] in home exercise program. - Met so [...] Time Minutes (timed/untimed): 41 Lazaro Carlos, PT [facility] 03-28-2023 History of Present illness Narrative Episode [...] and treatment included: Therapeutic exercise, Manual therapy, Self-nursing home management, and Patient/Family/Caregiver Education. Goals updated 03/28/2023 Goals for Episode of Care: created on 01/25/23 through 05/17/23 Pt will be able to complete work duties without pain or any functional limitations in 14 weeks or less - Met so far Milam in home exercise program. - Met so [...] Lazaro Gonzalez PT documented in this encounter [facility] 03-26-2023 Note HNO ID: [id number] Author: Diana Tate PA-C Service: ? Author Type: Physician Social Sciences Research Scientist Type: Progress Notes Filed: 03/27/2023 11:13 AM Note Text: 53 year old male with c/o follow up 01/03/2023 traumatic incomplete tear left rotator cuff, impingement syndrome. Doing well post shoulder surgery reattached tendons and chondroplasty. Sling x 6 weeks completed. In PT With Lazaro Gonzalez: making good progress. Minimal use oxycodone. 01/06/2023 presented to [facility] ER with complaint that he felt like [...] clearance Dr. Ledy Ivy: IMPRESSION: 1. CAD, MD 1991, S/P CABGx4 2005 (ROBERT to LAD, SVGs to OM, ramus and PDA), 12/2017 cath for abnormal stress (CASKET UPHOLSTERER RCA with collaterals), stable, angina free. 2. [...] overload state. 4. Patient will follow a paper ruler closer to his hometown. 01/21/2023 cardiology visit [...] pain in both legs after standing. 03/20/2023 [facility] arterial vascular US/dopplar to follow bilateral fem-fem [...] 1.00 - 4.00 k/uL 0.73 (L) 1.07 [place]% % 5.0 12.8 Abs [place] <0.87 k/uL 0.34 0.63 [place]% % 0.1 [...] - 113 U/ (more content not included)... [facility] 03-25-2023 Note HNO ID: [id number] Author: Lazaro Gonzalez PT Service: ? Author [...] Time Minutes (timed/untimed): 42 Lazaro Gonzalez PT [facility] 03-25-2023 History of Present illness Narrative Episode [...] Lazaro Gonzalez PT documented in this encounter [facility] 03-22-2023 Note HNO ID: [id number] Author: Lazaro Gonzalez PT Service: ? Author [...] Treatment Time Minutes (timed/untimed): 38 Nasra Mavis, OPERATIONS DISPATCHER Lazaro Gonzalez, PT [facility] 03-22-2023 History of Present illness Narrative Episode [...] MARIA Dyer PT documented in this encounter [facility] 03-20-2023 Note HNO ID: [id number] Author: Olivia Herndon APRN.CHIP FRIER Service: ? Author Type: Nurse Practitioner Type: Progress Notes Filed: 03/20/2023 12:01 PM Note Text: This note was created using [employer]. Subjective Marian Koch is a 53 [...] not accurate. 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 On Sensipar in remote past. Kidney dialysis 1988, and 2000 Neurogenic bladder VIC (obstructive sleep apnea) 08/04/2011 declines CPAP Pulmonary embolism ([facility]) 10-12 years ago Pulmonary nodules Foreign body reaction in pulmonary vasculature, ? cause. Extensive evaluation ruled out vasculitis, fungal inffection, pneumoconiosis. May have been from gortex graft .Resulted in multiple pulmonary nodules. Radiculopathy, lumbar region 11/28/2016 Renal failure 02/20/2010 Renal failure, chronic, stage 3 (moderate) ([facility]) folllowing renal transplant Renal stones Steroid long-term use Transplant kidney 1993 and 2009 Failed in 2000(right in , removed in ; left ') PAST SURGICAL HISTORY Procedure Laterality Date CABG (4) VEIN GRAFTS AND ARTERIAL GRAFT(S) 2004 COLONOSCOPY FLX DX W/COLLJ SPEC WHEN PFRMD 06/14/[address] Ddoge PERICARDIAL WINDOW, DRAINAGE 1991 RENAL ALLOTRANSPLANTATION W/ [...] magnesium oxide 40 (more content not included)... [facility] 03-20-2023 Instructions Olivia Herndon APRN.CNP - 03/20/2023 [...] fluids help open respiratory and sinus passages [place] [facility] [place] may offer relief of nasal and head [...] rather than better documented in this encounter [facility] 03-20-2023 History of Present illness Narrative This note was created using [employer]. Subjective Marian Koch is a 53 year [...] AI 1-2+ Claudication of both lower extremities ([facility]) 08/22/2017 02/05/19 PVR Johana Vazqueznic: no stenosis [...] not accurate. 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 Author [...] Time Minutes (timed/untimed): 39 Lazaro Gonzalez PT [facility] 03-08-2023 Note HNO ID: [id number] Author: Lazaro Gonzalez PT Service: ? Author [...] Time Minutes (timed/untimed): 30 Lazaro Gonzalez PT [facility] 03-08-2023 History of Present illness Narrative Episode [...] Lazaro Gonzalez PT documented in this encounter [facility] 02-27-2023 Note HNO ID: [id number] Author: Lazaro Gonzalez PT Service: ? Author [...] weeks or less - Progressing, will continue Milam in home exercise program. - Met so [...] Patient to be seen for Therapeutic exercise (31515), Neuromuscular re-education (77075), Manual therapy (48161), Self-nursing home management (25661), Patient/Family/Caregiver Education PLAN FOR NEXT VISIT: Progress [...] Time Minutes (timed/untimed): 45 Lazaro Gonzalez PT [facility] 02-21-2023 Note HNO ID: [id number] Author: Prachi Doss, DO Service: ? Author [...] nerves intact Left (more content not included)... [facility] 02-20-2023 Note HNO ID: [id number] Author: Lazaro Gonzalez PT Service: ? Author [...] Time Minutes (timed/untimed): 41 Lazaro Gonzalez PT [facility] 02-12-2023 Note HNO ID: [id number] Author: Lazaro Gonzalez PT Service: ? Author [...] 40 Nasra Gamble, JOSE MARIA Gonzalez, PT [facility] 02-12-2023 History of Present illness Narrative Episode [...] Treatment Time Minutes (timed/untimed): 40 Nasra Gamble, OPERATIONS DISPATCHER Lazaro Gonzalez PT documented in this encounter [facility] 01-29-2023 Note HNO ID: [id number] Author: Lazaro Gonzalez PT Service: ? Author [...] Time Minutes (timed/untimed): 38 Lazaro Gonzalez PT [facility] 01-29-2023 History of Present illness Narrative Episode [...] Lazaro Gonzalez PT documented in this encounter [facility] 01-25-2023 Note HNO ID: [id number] Author: Lazaro Gonzalez PT Service: ? Author [...] functional limitations in 14 weeks or less Milam in home exercise program. Perform reaching overhead [...] Planned: 4 Planned Treatment Interventions: Therapeutic exercise (93263), Neuromuscular re-education (91725), Manual therapy (02543), Self-nursing home management (57532), Patient/Family/Caregiver Education PLAN FOR NEXT VISIT: Follow [...] Minutes (timed/untimed): 41 (more content not included)... [facility] 01-25-2023 History of Present illness Narrative Episode [...] functional limitations in 14 weeks or less Milam in home exercise program. Perform reaching overhead [...] Lazaro Gonzalez PT documented in this encounter [facility] 01-25-2023 Miscellaneous Notes Marian is 3 weeks [...] denied. Sarah Fung documented in this encounter [facility] 01-21-2023 Note HNO ID: [id number] Author: Maria Elena Dockery MD Service: ? Author Type: Physician Type: Progress Notes Filed: 01/21/2023 10:14 AM Note Text: Maria Elena Dockery MD Interventional Cardiology [facility] [id number] [place], [place] [address] [id number] Chief Complaint Patient presents with: New Patient [...] AI 1-2+ Claudication of both lower extremities ([facility]) 08/22/2017 02/05/19 PVR Johana Jauregui: no stenosis [...] not accurate. 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 On Sensipar [...] Take 1 ta (more content not included)... [facility] 01-21-2023 History of Present illness Narrative Images from the original note were not included. Maria Elena Dockery MD Interventional Cardiology [facility] [address], [place] [address] [phone] Chief Complaint Patient presents with: New Patient [...] not accurate. 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 On Sensipar in remote past. Kidney dialysis 1988, and 2000 Neurogenic bladder VIC (obstructive sleep apnea) 08/04/2011 declines CPAP Pulmonary embolism ([facility]) 10-12 years ago Pulmonary nodules Foreign body reaction in pulmonary vasculature, ? cause. Extensive evaluation ruled out vasculitis, fungal inffection, pneumoconiosis. May have been from gortex graft .Resulted in multiple pulmonary nodules. Radiculopathy, lumbar region 11/28/2016 Renal failure 02/20/2010 Renal failure, chronic, stage 3 (moderate) ([facility]) folllowing renal transplant Renal stones Steroid long-term [...] correct any errors. documented in this encounter [facility] 01-18-2023 Note HNO ID: [id number] Author: Abraham Evans PA-C Service: ? Author Type: Physician Social Sciences Research Scientist Type: Progress Notes Filed: 01/18/2023 12:50 PM Note Text: POST OP Abraham Evans PA-C Orthopaedics [address] [id number] Dept: [phone] Mr. Koch presents today for his 2 [...] clinical evaluation with Dr. Romario Evans PA-C [facility] 01-18-2023 History of Present illness Narrative POST OP Abraham Evans PA-C Orthopaedics [address] [id number] Dept: [phone] Mr. Koch presents today for his 2 [...] Romario Evans PA-C documented in this encounter [facility] 01-04-2023 Miscellaneous Notes Pt notified. Sarah Fung [...] pain. Authorizing Provider: MOLLY TERRELL PA-C Needs [facility]. The other pharmacy is also out. Updated pharmacy in [facility]. Sarah Fung Patient calls and reports that [facility] is out of Percocet. Please send new prescription to [facility] in [place]. 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 Reason for block: post-op pain [...] January 03, 2023 TIME: 5:24 PM CSN: [id number] [facility] 01-03-2023 Note HNO ID: [id number] Author: Margo Taylor APRN.SENIOR PUBLICATIONS SPECIALIST Service: Anesthesiology Author Type: Nurse Stockkeeper Type: Anesthesia Procedure Notes Filed: 01/03/2023 1:57 PM Note Text: ANESTHESIOLOGY PROCEDURE NOTE Airway General Information Procedure Start Time/Medication Administration: 01/03/2023 1:25 PM Patient location during procedure: OR Timeout Performed Pre-procedure: timeout performed Consent Obtained: Yes Patient identity confirmed: arm band and patient Staffing SENIOR PUBLICATIONS SPECIALIST: Margo Taylor APRN.SENIOR PUBLICATIONS SPECIALIST Performed by: BRANDON Indications and Patient Condition [...] January 03, 2023 TIME: 1:56 PM CSN: [id number] [facility] 01-03-2023 Note HNO ID: [id number] Author: Margo Taylor APRN.SENIOR PUBLICATIONS SPECIALIST Service: Anesthesiology Author Type: Nurse Stockkeeper Type: Anesthesia Procedure Notes Filed: 01/03/2023 1:49 [...] January 03, 2023 TIME: 1:48 PM CSN: [id number] [facility] 12-27-2022 Miscellaneous Notes Informed patient of Dr. Ivy's message below. He verbalized understanding and appreciation for call. Sharifa Sanches RN ----- Message from Ledy Ivy MD sent at 12/27/2022 12:25 PM EDT ----- Testing is within acceptable range. Continue your current medical treatment. please call and/or send a letter to the patient. Please release results to [facility] documented in this encounter [facility] 12-19-2022 Miscellaneous Notes Needs at least a [...] was able to get was 12/26 at [place]. He is scheduled for surgery 12/27. Asking if this is going to be enough time to get results prior to surgery. Pt was placed on cancellation list for ECHO but understands that it will need to be authorized by his insurance prior. Sarah Fung documented in this encounter [facility] 12-18-2022 Note HNO ID: [id number] Author: Ledy Ivy MD Service: ? Author Type: Physician Type: Progress Notes Filed: 12/18/2022 2:35 PM Note Text: Heart and Vascular [place] Department of Cardiovascular Medicine SECTION OF CLINICAL CARDIOLOGY OUTPATIENT VISIT DATE December 18, 2022 OUTPATIENT VISIT TYPE NEW PRIMARY CARE PHYSICIAN: Diana Tate PA-C [address] [place] [address] CHIEF COMPLAINT: Cardiac Clearance HISTORY OF PRESENT [...] Coronary atherosclerosis of unspecified type of vessel, tangirnaq or graft Coronary artery disease Current mild episode of major depressive disorder (HCC) 02/05/2019 Depression 03/07/2012 DVT (deep venous thrombosis) ([facility]) End stage renal disease ([facility]) 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 [facility] 12-18-2022 History of Present illness Narrative Images from the original note were not included. [facility] Department of Cardiovascular Medicine SECTION OF CLINICAL CARDIOLOGY OUTPATIENT VISIT DATE December 18, 2022 OUTPATIENT VISIT TYPE NEW PRIMARY CARE PHYSICIAN: Diana Tate PA-C [address] [place] [address] CHIEF COMPLAINT: Cardiac Clearance HISTORY OF PRESENT [...] not accurate. 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 On Sensipar in remote past. Kidney dialysis 1988, and 2000 Neurogenic bladder VIC (obstructive sleep apnea) 08/04/2011 declines CPAP Pulmonary embolism ([facility]) 10-12 years ago Pulmonary nodules Foreign body reaction in pulmonary vasculature, ? cause. Extensive evaluation ruled out vasculitis, fungal inffection, pneumoconiosis. May have been from gortex graft .Resulted in multiple pulmonary nodules. Radiculopathy, lumbar region 11/28/2016 Renal failure 02/20/2010 Renal failure, chronic, stage 3 (moderate) ([facility]) folllowing renal transplant Renal stones Steroid long-term [...] personally reviewed the Electrocardiogram. IMPRESSION: 1. CAD, MD 1991, S/P CABGx4 2005 (ROBERT to LAD, SVGs to OM, ramus and PDA), 12/2017 cath for abnormal stress (CASKET UPHOLSTERER RCA with collaterals), stable, angina free. 2. [...] overload state. 4. Patient will follow a paper ruler closer to his hometown. CONTACT INFORMATION: Ledy Ivy M.D. Director, Interventional Cardiology, [facility] Clinical Solutions Architect Consultantpreschool lead teacher [facility] Heart, Vascular and Thoracic [place] [facility] Department of Cardiovascular Medicine [facility] [place] [phone] documented in this encounter [facility] 12-12-2022 Miscellaneous Notes Appointment scheduled with Dr Ivy on 12/18/22 at . Spoke with pt and he is able to go the appointment. Arnie Escudero RN December 12, 2022 9:54 AM Please assist with pt moving up his cardiac appt with a [facility] paper ruler prior to surgery 12/27/2022 for clearance due to abnormal EKG, [place]ACIN[place]. Pt is open to other locations. He currently has an appt in [place] in January he can keep for a follow up but will need a sooner one for clearance. documented in this encounter [facility] 12-10-2022 History and physical note Images from [...] Immunosuppressive Medication (Hcc) Coronary Artery Disease of [place] Artery of [place] Heart With Stable Angina Pectoris (Hcc) Chronic [...] fevers. Neurological: No history of TIA's, stroke, HYDROELECTRIC PLANT STRUCTURAL ENGINEER tumor, impaired sensorium, hemiplegia, paraplegia or quadraplegia. No neurological symptoms or problems. Respiratory: Positive for: COPD. Negative for: asthma, pneumonia within 6 weeks, tobacco use, URI < 2 weeks and obstructive sleep apnea. Cardiovascular: Hx fem-fem bypass, following [facility] Positive for: anticoagulation therapy, CAD, DVT/PE (hx), hyperlipidemia, hypertension and open heart surgery (2005) Patient's last office visit The following tests and/or procedures were not performed: cardiac stents. Negative for: arrhythmia, atrial fibrillation, chest pain, CHF, congenital heart defect, recent MD, murmur/valvular heart disease and valve surgery. 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 On Sensipar in remote past. Kidney dialysis 1988, and 2000 Neurogenic bladder VIC (obstructive sleep apnea) 08/04/2011 declines CPAP Pulmonary embolism ([facility]) 10-12 years ago Pulmonary nodules Foreign body reaction in pulmonary vasculature, ? cause. Extensive evaluation ruled out vasculitis, fungal inffection, pneumoconiosis. May have been from gortex graft .Resulted in multiple pulmonary nodules. Radiculopathy, lumbar region 11/28/2016 Renal failure 02/20/2010 Renal failure, chronic, stage 3 (moderate) ([facility]) folllowing renal transplant Renal stones Steroid long-term [...] 410 QTC Calculation ([place]) 410 Calculated P Gwinner 47 Calculated R Gwinner -52 Calculated T Gwinner -26 Impression NORMAL SINUS RHYTHM WITH SINUS ARRHYTHMIA COMPLETE RIGHT BUNDLE BRANCH BLOCK LEFT ANTERIOR FASCICULAR BLOCK BIFASCICULAR BLOCK ABNORMAL ECG No results found for this or any previous visit (from the past 27116 hour(s)). Assessment Patient has the following medical [...] following vascular at [facility] 01/11/2022 Dr. Sutton, [facility] Arterial Duplex RLE 12/19/21 Conclusions [...] Cardiac clearance requested. Pt scheduled 12/18/2022 at [place]. Reviewed red flags and when to seek medical care. Pt verbalized understanding. Current mild episode of major depressive disorder (HCC) Assessment: stable on rx per pt DVT (deep venous thrombosis) ([facility]) Assessment: and PE, tx with Coumadin x [...] have a large neck STOP-Bang Score: 3 [id number] Score: Age: <65 Sex: male CHF history: No Hypertension history: Yes Stroke/TIA/thromboembolism history: No Vascular disease history: Yes Diabetes history: No [id number] Score: 2 ARISCAT Score: Age: 51-80 Preoperative [...] and consent discussed: yes. Patient / Responsible Democrat agrees to proceed: yes Patient / Surrogate [...] PM PAGER/CONTACT #: documented in this encounter [facility] 12-10-2022 Instructions Sallie Carlisle APRN.CNP - 12/10/2022 3:13 PM EST PATIENT PREOPERATIVE INSTRUCTIONS Prachi Doss,* has scheduled you for your procedure at this surgery center: [facility]: [phone] -- [address] [place] [address]. Please read below carefully for your personalized [...] Procedures: - YOU MUST HAVE A RESPONSIBLE JEWELRY SALES ASSOCIATE TAKE YOU HOME. A MEDICINE AND HEALTH SERVICE MANAGER OR CARTOGRAPHIC TECHNICIAN CANNOT BE MADE A RESPONSIBLE JEWELRY SALES ASSOCIATE. - We recommend that a responsible person [...] Advance Directive, please fax a copy to [phone] or email to for it to be [...] Sallie Carlisle APRN.CNP documented in this encounter [facility] 12-06-2022 Note HNO ID: [id number] Author: Prachi Doss, DO Service: ? Author [...] 80 Passive abduction: (more content not included)... [facility] 12-06-2022 History of Present illness Narrative Images [...] All questions answered. documented in this encounter [facility] 11-16-2022 Miscellaneous Notes Patient has been scheduled on 12/06/2022. Images from the original note were not included. ROBBIN Salinas LPN; [facility] Orthopaedic Pool 4 hours ago [...] Nara Theodore LPN documented in this encounter [facility] 11-08-2022 Note HNO ID: [id number] Author: Maynor Baldwin MD Service: ? Author Type: Physician Type: Progress Notes Filed: 11/08/2022 8:27 AM Note Text: Maynor Baldwin MD Department of Orthopaedics Orthopaedics [address] [facility] [address] Dept: [phone] Dept November 08, 2022 CHIEF COMPLAINT: Follow [...] Psych (no depression, anxiety) Maynor Baldwin MD [facility] 11-08-2022 History of Present illness Narrative Maynor Baldwin MD Department of Orthopaedics Orthopaedics [address] [place] [address] Dept: [phone] Dept November 08, 2022 CHIEF COMPLAINT: Follow [...] Maynor Baldwin MD documented in this encounter [facility] 11-08-2022 Note HNO ID: [id number] Author: Tonny De Guzman PT Service: ? [...] to 11/07/2022 and treatment included: Therapeutic exercise, Self-nursing home management, Patient/Family/Caregiver Education, and Body mechanics training. Pt has been seen for 10 visits over 6 weeks with minimal to no improvement despite compliance with all instructions. Updated: 10/17/22 and 11/07/22 Goals for Episode of Care: created on 09/20/22 through 11/01/22 [place] in home exercise program. - MET Patient [...] to continue wi (more content not included)... [facility] 11-07-2022 History of Present illness Narrative Episode [...] to 11/07/2022 and treatment included: Therapeutic exercise, Self-nursing home management, Patient/Family/Caregiver Education, and Body mechanics training. Pt has been seen for 10 visits over 6 weeks with minimal to no improvement despite compliance with all instructions. Updated: 10/17/22 and 11/07/22 Goals for Episode of Care: created on 09/20/22 through 11/01/22 [place] in home exercise program. - MET Patient [...] De Guzman PT documented in this encounter [facility] 11-05-2022 Note HNO ID: [id number] Author: Tonny De Guzman PT Service: ? [...] with shoulder flexion. TREATMENT: Therapeutic Exercise: 1: [employer] StepOne seat #8 x5 minutes with no [...] Treatment Time Minutes (timed/untimed): 43 Nasra Clairehali, OPERATIONS DISPATCHER Tonny De Guzman PT [facility] 11-05-2022 History of Present illness Narrative Episode [...] MARIA Dyer PT documented in this encounter [facility] 10-31-2022 Note HNO ID: [id number] Author: Tonny De Guzman PT Service: ? [...] LEVEL OF FUNCTION: TREATMENT: Therapeutic Exercise: 1: [employer] StepOne seat #8 x5 minutes with no [...] Minutes (timed/untimed): 43 Tonny De Guzman PT [facility] 10-31-2022 History of Present illness Narrative Episode [...] De Guzman PT documented in this encounter [facility] 10-24-2022 Note HNO ID: [id number] Author: Tonny De Guzman PT Service: ? [...] Minutes (timed/untimed): 40 Tonny De Guzman PT [facility] 10-24-2022 History of Present illness Narrative Episode [...] De Guzman PT documented in this encounter [facility] 10-23-2022 Miscellaneous Notes Pt read mychart See Eyestorm message Please have him come in for recheck lab in 3 months and complete outstanding BMD. Telephone on 10/22/22 PTH INTACT BLD CALCIUM IONIZED BLOOD PHOSPHORUS INORGANIC CROSS-LINK N-TELO DONNY Thanks, Herman Tate PA-C documented in this encounter [facility] 10-22-2022 Note HNO ID: [id number] Author: Tonny De Guzman PT Service: ? [...] out to the side and can barely pear picker a cup of water with reaching out. [...] Treatment Time Minutes (timed/untimed): 40 Nasra Gamble, OPERATIONS DISPATCHER Tonny De Guzman, PT [facility] 10-22-2022 History of Present illness Narrative Episode [...] out to the side and can barely pear picker a cup of water with reaching out. [...] Treatment Time Minutes (timed/untimed): 40 Nasra Gamble, OPERATIONS DISPATCHER Tonny De Guzman PT documented in this encounter [facility] 10-19-2022 Note HNO ID: [id number] Author: Tonny De Guzman PT Service: ? [...] Treatment Time Minutes (timed/untimed): 30 Nasra Gamble, OPERATIONS DISPATCHER Tonny De Guzman, PT [facility] 10-19-2022 History of Present illness Narrative Episode [...] De Guzman PT documented in this encounter [facility] 10-17-2022 Note HNO ID: [id number] Author: Tonny De Guzman PT Service: ? [...] of Care: created on 09/20/22 through 11/01/22 [place] in home exercise program. - Partially Met, [...] Patient to be seen for Therapeutic exercise (87509);Manual therapy (56951);Self-nursing home management (58316);Patient/Family/Caregiver Education;Body Mechanics Training PLAN FOR NEXT VISIT: [...] UE and Cervica (more content not included)... [facility] 10-17-2022 History of Present illness Narrative Episode [...] of Care: created on 09/20/22 through 11/01/22 Mil[place] in home exercise program. - Partially Met, [...] Patient to be seen for Therapeutic exercise (78198);Manual therapy (95532);Self-nursing home management (76674);Patient/Family/Caregiver Education;Body Mechanics Training PLAN FOR NEXT VISIT: [...] De Guzman PT documented in this encounter [facility] 10-09-2022 History of Present illness Narrative Episode [...] resting shoulder due to pain and fatigue. Self-Longterm Management: 1: *Education in use of towel [...] MARIA Dyer PT documented in this encounter [facility] 09-26-2022 History of Present illness Narrative Episode [...] De Guzman PT documented in this encounter [facility] 09-24-2022 History of Present illness Narrative Associated Order(s): Large Joint Arthro/Inj: L subacromial bursa Post-Procedure Diagnose(s): Chronic left shoulder pain Maynor Baldwin MD Department of Orthopaedics Orthopaedics [address] [place] [address] Dept: [phone] Dept September 24, 2022 CHIEF COMPLAINT: Established [...] subacromial bursa Informed Consent Consent Obtained: Verbal [place] Protocol A moment to CARE was completed. [...] Maynor Baldwin MD documented in this encounter [facility] 09-21-2022 History of Present illness Narrative Episode [...] of Care: created on 09/20/22 through 11/01/22 [place] in home exercise program. 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 [...] De Guzman PT documented in this encounter [facility] 09-15-2022 Instructions Diana Tate PA-C - 09/15/2022 [...] usual activities immediately. documented in this encounter [facility] 09-14-2022 History of Present illness Narrative 52 [...] not accurate. COPD (chronic obstructive pulmonary disease) ([facility]) Coronary atherosclerosis of unspecified type of vessel, tangirnaq or graft Coronary artery disease Current mild [...] Immunosuppressive Medication (Hcc) Coronary Artery Disease of [place] Artery of [place] Heart With Stable Angina Pectoris (Hcc) Chronic Pain Syndrome Other Osteoporosis Without Current Pathological Fracture Current Mild Episode of Major Depressive Disorder (Hcc) Copd (Chronic Obstructive Pulmonary Disease) ([facility]) Mixed Hyperlipidemia Palpitations Cataracta Current Outpatient Medications [...] flexion or abduction to 85 degrees, negative Archer's, negative Woodard, pain with reaching behind back, negative lift off. Tender trigger points through coracobrachialis supraspinatus and subscapularis. Myofascial release to these areas with a little bit of improvement but no improvement in range of motion. ASSESSMENT/PLAN: 1. Coronary artery disease involving tangirnaq coronary artery of tangirnaq heart without angina pectoris - ICD9: 414.01, [...] Chronic obstructive pulmonary disease, unspecified COPD type ([facility]) - ICD9: 496, ICD10: J44.9 Stable, minimal [...] Diana Tate PA-C documented in this encounter [facility] 07-23-2022 History of Present illness Narrative This note was created using [employer]. Subjective Marian Koch is a 52 year [...] AI 1-2+ Claudication of both lower extremities ([facility]) 08/22/2017 02/05/19 PVR Johana Jauregui: no stenosis [...] not accurate. 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 On Sensipar in remote past. Kidney dialysis 1988, and 2000 Neurogenic bladder VIC (obstructive sleep apnea) 08/04/2011 declines CPAP Pulmonary embolism ([facility]) 10-12 years ago Pulmonary nodules Foreign body reaction in pulmonary vasculature, ? cause. Extensive evaluation ruled out vasculitis, fungal inffection, pneumoconiosis. May have been from gortex graft .Resulted in multiple pulmonary nodules. Radiculopathy, lumbar region 11/28/2016 Renal failure 02/20/2010 Renal failure, chronic, stage 3 (moderate) ([facility]) folllowing renal transplant Renal stones Steroid long-term [...] R Tremayne, ROBBIN documented in this encounter [facility] 06-07-2022 History of Present illness Narrative Associated Order(s): Large Joint Arthro/Inj: L subacromial bursa Post-Procedure Diagnose(s): Acute pain of left shoulder; Impingement syndrome of left shoulder Maynor Baldwin MD Department of Orthopaedics Orthopaedics [address] [facility] [address] Dept: [phone] Dept June 07, 2022 CHIEF COMPLAINT: Established [...] subacromial bursa Informed Consent Consent Obtained: Verbal [place] Protocol A moment to CARE was completed. [...] with adhesive capsulitis. Additional findings as described. Head Of Human Resources: RADHA Transcribe Date/Time: Jun 05 2022 12:28P Dictated by : AGUSTÍN WELCH MD This examination was interpreted and the report reviewed and electronically signed by: RAMY BAILEY MD on Jun 05 2022 2:39PM EST Results-Findings * * *Final Report* * * DATE OF EXAM: Jun 05 2022 11:25AM [facility] 0239 - [facility] / PROCEDURE REASON: multiple diagnoses * * * * Physician Interpretation * * * * EXAMINATION: [facility] HISTORY: Acute pain of left [...] Maynor Baldwin MD documented in this encounter [facility] 05-21-2022 History of Present illness Narrative Maynor Baldwin MD Department of Orthopaedics Orthopaedics [address] [facility] [address] Dept: [phone] Dept May 21, 2022 Consultation requested by [...] shoulder as seen in 2017. Etiology uncertain Head Of Human Resources: RADHA Transcribe Date/Time: May 04 2022 5:02P [...] both lower extremities (HCC) 08/22/2017 02/05/[address] [place] Jauregui: no stenosis left fem-pop bypass. Unable to get CHEL due to non-compressible vesels11/12/[address] Zavala [facility]: RIGHT: resting CHEL > 1.81, non-compressible arteries; TBI 0.40 = PAD; Right ankle: Moderate disease at rest. Right iliofemoral disease. Severe disease noted, post exercise, by tracings. LEFT SIDE: resting CHEL 1.81, non-compressible vessels, CHEL not accurate. 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 On Sensipar in remote past. Kidney dialysis 1988, and 2000 Neurogenic bladder VIC (obstructive sleep apnea) 08/04/2011 declines CPAP Pulmonary embolism ([facility]) 10-12 years ago Pulmonary nodules Foreign body reaction in pulmonary vasculature, ? cause. Extensive evaluation ruled out vasculitis, fungal inffection, pneumoconiosis. May have been from gortex graft .Resulted in multiple pulmonary nodules. Radiculopathy, lumbar region 11/28/2016 Renal failure 02/20/2010 Renal failure, chronic, stage 3 (moderate) ([facility]) folllowing renal transplant Renal stones Steroid long-term [...] or electronic medical record. Isabel Guillaume [address] [facility] [address] M Ines Tate PA-C [address] [facility] [address] Maynor Baldwin MD documented in this encounter [facility] 05-08-2022 Note HNO ID: [id number] Author: Laurie Badillo, DO Service: ? Author Type: Physician Type: Progress Notes Filed: 05/17/2022 12:54 AM Note Text: [facility] LOCATION: [address] [place] [address] ESTABLISHED PATIENT PATIENT INFO: Marian Koch 52 [...] 83.8 Lymph% (%) Date Value 06/05/2021 10.8 [place]% (%) Date Value 06/05/2021 5.0 Eosin% (%) Date Value 06/05/2021 0.1 Baso% (%) Date Value 06/05/2021 0.3 Abs Neut (ANC) (k/uL) Date Value 06/05/2021 5.65 Abs [place] (k/uL) Date Value 06/05/2021 0.34 Abs Eosin [...] no (more content not included)... [facility] 05-08-2022 History of Present illness Narrative Images from the original note were not included. [facility] LOCATION: [address] [place] [address] ESTABLISHED PATIENT PATIENT INFO: Marian Koch 52 [...] 83.8 Lymph% (%) Date Value 06/05/2021 10.8 [place]% (%) Date Value 06/05/2021 5.0 Eosin% (%) Date Value 06/05/2021 0.1 Baso% (%) Date Value 06/05/2021 0.3 Abs Neut (ANC) (k/uL) Date Value 06/05/2021 5.65 Abs [place] (k/uL) Date Value 06/05/2021 0.34 Abs Eosin [...] AI 1-2+ Claudication of both lower extremities ([facility]) 08/22/2017 02/05/[address] [place] [place] [address] Jauregui: no stenosis left fem-pop bypass. Unable to get CHEL due to non-compressible vesels11/12/[address] Zavala [facility]: RIGHT: resting CHEL > 1.81, non-compressible arteries; TBI 0.40 = PAD; Right ankle: Moderate disease at rest. Right iliofemoral disease. Severe disease noted, post exercise, by tracings. LEFT SIDE: resting CHEL 1.81, non-compressible vessels, CHEL not accurate. 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 On Sensipar in remote past. Kidney dialysis 1988, and 2000 Neurogenic bladder VCI (obstructive sleep apnea) 08/04/2011 declines CPAP Pulmonary embolism ([facility]) 10-12 years ago Pulmonary nodules Foreign body [...] with more than 50% of the total [id number] time of the visit in counseling / coordination of care. Laurie Badillo DO MBA documented in this encounter [facility] 05-04-2022 Instructions Isabel Guillaume APRN.CNP - 05/04/2022 [...] when lying down. documented in this encounter [facility] 05-04-2022 History of Present illness Narrative Images from the original note were not included. This note was created using [employer]. Subjective Marian Koch is a 52 year [...] history is provided by the patient. No speech and language assistant was used. Shoulder Injury The incident occurred [...] Coronary atherosclerosis of unspecified type of vessel, tangirnaq or graft Coronary artery disease Current mild episode of major depressive disorder (HCC) 02/05/2019 Depression 03/07/2012 DVT (deep venous thrombosis) ([facility]) End stage renal disease (HCC) Due to [...] will follow up with ortho. Isabel Guillaume APRN.CHIP FRIER documented in this encounter [facility] 04-20-2022 Note HNO ID: [id number] Author: Eleni Shaw RN Service: ? Author Type: Registered Nurse Type: Progress Notes Filed: 04/26/2022 12:23 PM Note Text: Marian Koch [id number] 1970 April 20, 2022 Diagnoses: Urinary Retention [...] bladder Celso Godinez Jr, MD [facility] 04-20-2022 History of Present illness Narrative Marian Koch [id number] 1970 April 20, 2022 Diagnoses: Urinary Retention [...] Laurie Badillo DO documented in this encounter [facility] 04-20-2022 Instructions Eleni Shaw RN - 04/20/2022 7:44 AM EDT POST PROCEDURE INSTRUCTIONS Marian Koch April 20, 2022 Increase your fluid intake. FOLLOW UP APPOINTMENT: 05/08/22 at 3:00 pm with Laurie Badillo DO in the [address] [place] [address] office. WHEN TO CALL THE DOCTOR: If you develop fever (over 101 degrees) or chills. If you cannot urinate or empty your bladder. If you develop symptoms of a urinary tract infection such as burning or pain with urination, increased frequency of urination or foul smelling urine If you have any other questions or problems. Office phone number; [phone] documented in this encounter [facility] 03-06-2022 Note HNO ID: [id number] Author: Laurie Badillo DO Service: ? Author Type: Physician Type: Procedures Filed: 03/06/2022 3:57 PM Note Text: CYSTOSCOPY PROCEDURE NOTE: Marian Koch is a 52 year old male who presents with urinary retention for cystoscopy. Pt ID verified with patient: Yes Procedure verified with patient: Yes Procedure confirmed with physician and credit support counselor: Yes Sign In History and Physical Exam [...] UDS ? Laurie Badillo DO [facility] 03-06-2022 Procedure note Procedure(s): CYSTOSCOPY CYSTOSCOPY PROCEDURE NOTE: Marian Koch is a 52 year old male who presents with urinary retention for cystoscopy. Pt ID verified with patient: Yes Procedure verified with patient: Yes Procedure confirmed with physician and credit support counselor: Yes Sign In History and Physical Exam [...] Laurie Badillo DO documented in this encounter [facility] 03-06-2022 Miscellaneous Notes Patient called in to make an appointment with a provider. He will be seen in [place] today by Dr. Badillo, and is aware he will most likely get a full visit bill from insurance due to being seen in [facility] this morning. Yamilet Gee Left vm pt needs an appt with any provider for long history of urinary retentiion. Pina documented in this encounter [facility] 03-06-2022 History of Present illness Narrative Images [...] AI 1-2+ Claudication of both lower extremities ([facility]) 08/22/2017 02/05/[address] Vazqueznic: no stenosis left fem-pop bypass. Unable to get CHEL due to non-compressible vesels11/12/[address] Zavala [facility]: RIGHT: resting CHEL > 1.81, non-compressible arteries; TBI 0.40 = PAD; Right ankle: Moderate disease at rest. Right iliofemoral disease. Severe disease noted, post exercise, by tracings. LEFT SIDE: resting CHEL 1.81, non-compressible vessels, CHEL not accurate. 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 On Sensipar in remote past. Kidney dialysis 1988, and 2000 Neurogenic bladder VIC (obstructive sleep apnea) 08/04/2011 declines CPAP Pulmonary embolism ([facility]) 10-12 years ago Pulmonary nodules Foreign body [...] Appointment with Sawyer. documented in this encounter [facility] 02-19-2022 History of Present illness Narrative 52 year old male with c/o concerns over urination, peeing a lot, just dribbling . Frequent urination over last 6 months. See urology [facility], had cystoscopy, bled x 2 days after. Over last 5-6 months no fever, chills. Lately has been nauseated. 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 Galindo Khan Last records: Current medications: [...] of major depressive disorder, unspecified whether recurrent ([facility]) Current medications: Duloxetine 30mg daily Chronic pain syndrome Claudication of both lower extremities ([facility]) 01/11/2022 vascular follow up [facility] Arterial Duplex RLE 12/19/21 [...] AI 1-2+ Claudication of both lower extremities ([facility]) 08/22/2017 02/05/19 PVR Johana Vazqueznic: no stenosis [...] not accurate. COPD (chronic obstructive pulmonary disease) ([facility]) Coronary atherosclerosis of unspecified type of vessel, tangirnaq or graft Coronary artery disease Current mild episode of major depressive disorder ([facility]) 02/05/2019 Depression 03/07/2012 DVT (deep venous thrombosis) [...] Immunosuppressive Medication (Hcc) Coronary Artery Disease of [place] Artery of [place] Heart With Stable Angina Pectoris (Hcc) Chronic [...] PELVIS BLADDER 2. 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) - [...] Diana Tate PA-C documented in this encounter [facility] documented as of this encounter (statuses as of 03/06/2022) [facility] History of Past illness Narrative* Problem Noted Date Resolved Date Screen for colon cancer 06/09/2021 06/14/20 21 Dialysis patient 02/20/2010 11/28/2012 documented as of this encounter (statuses as of 03/06/2022) [facility]09-03[facility]2021 History of Past illness Narrative* Problem Noted Date Resolved Date Screen for colon cancer 06/09/2021 06/14/20 21 Dialysis patient 02/20/2010 11/28/2012 documented as of this encounter (statuses as of 03/06/2022) [facility]09[facility]03[facility]2021 History of Past illness Narrative* Problem Noted Date Resolved Date Screen for colon cancer 06/09/2021 06/14/20 21 Dialysis patient 02/20/2010 11/28/2012 documented as of this encounter (statuses as of 03/07/2022) [facility]2021 History of Past illness Narrative* Problem Noted Date Resolved Date Screen for colon cancer 06/09/2021 06/14/20 21 Dialysis patient 02/20/2010 11/28/2012 documented as of this encounter (statuses as of 03/08/2022) [facility]2021 History of Past illness Narrative* Problem Noted Date Resolved Date Screen for colon cancer 06/09/2021 06/14/20 21 Dialysis patient 02/20/2010 11/28/2012 documented as of this encounter (statuses as of 04/08/2022) [facility]21 History of Past illness Narrative* Problem Noted Date Resolved Date Screen for colon cancer 06/09/2021 06/14/20 21 Dialysis patient 02/20/2010 11/28/2012 documented as of this encounter (statuses as of 04/20/2022) [address]03-2021 History of Past illness Narrative* Problem Noted Date Resolved Date Screen for colon cancer 06/09/2021 06/14/20 21 Dialysis patient 02/20/2010 11/28/2012 documented as of this encounter (statuses as of 05/04/2022) [address]03-2021 History of Past illness Narrative* Problem Noted Date Resolved Date Screen for colon cancer 06/09/2021 06/14/20 21 Dialysis patient 02/20/2010 11/28/2012 documented as of this encounter (statuses as of 05/17/2022) [address]03-2021 History of Past illness Narrative* Problem Noted Date Resolved Date Screen for colon cancer 06/09/2021 06/14/20 21 Dialysis patient 02/20/2010 11/28/2012 documented as of this encounter (statuses as of 05/29/2022) [address]03-2021 History of Past illness Narrative* Problem Noted Date Resolved Date Screen for colon cancer 06/09/2021 06/14/20 21 Dialysis patient 02/20/2010 11/28/2012 documented as of this encounter (statuses as of 07/02/2022) [address]03-2021 History of Past illness Narrative* Problem Noted Date Resolved Date Screen for colon cancer 06/09/2021 06/14/20 21 Dialysis patient 02/20/2010 11/28/2012 documented as of this encounter (statuses as of 07/23/2022) [address]-2021 History of Past illness Narrative* Problem Noted Date Resolved Date Screen for colon cancer 06/09/2021 06/14/20 21 Dialysis patient 02/20/2010 11/28/2012 documented as of this encounter (statuses as of 09/15/2022) [address]-2021 History of Past illness Narrative* Problem Noted Date Resolved Date Screen for colon cancer 06/09/2021 06/14/20 21 Dialysis patient 02/20/2010 11/28/2012 documented as of this encounter (statuses as of 09/21/2022) [address]-2021 History of Past illness Narrative* Problem Noted Date Resolved Date Screen for colon cancer 06/09/2021 06/14/20 21 Dialysis patient 02/20/2010 11/28/2012 documented as of this encounter (statuses as of 09/27/2022) [facility]21 History of Past illness Narrative* Problem Noted Date Resolved Date Screen for colon cancer 06/09/2021 06/14/20 21 Dialysis patient 02/20/2010 11/28/2012 documented as of this encounter (statuses as of 10/11/2022) [facility]21 History of Past illness Narrative* Problem Noted Date Resolved Date Screen for colon cancer 06/09/2021 06/14/20 21 Dialysis patient 02/20/2010 11/28/2012 documented as of this encounter (statuses as of 10/18/2022) [facility]21 History of Past illness Narrative* Problem Noted Date Resolved Date Screen for colon cancer 06/09/2021 06/14/20 21 Dialysis patient 02/20/2010 11/28/2012 documented as of this encounter (statuses as of 10/22/2022) [facility]21 History of Past illness Narrative* Problem Noted Date Resolved Date Screen for colon cancer 06/09/2021 06/14/20 21 Dialysis patient 02/20/2010 11/28/2012 documented as of this encounter (statuses as of 10/23/2022) [facility]21 History of Past illness Narrative* Problem Noted Date Resolved Date Screen for colon cancer 06/09/2021 06/14/20 21 Dialysis patient 02/20/2010 11/28/2012 documented as of this encounter (statuses as of 10/23/2022) [facility]21 History of Past illness Narrative* Problem Noted Date Resolved Date Screen for colon cancer 06/09/2021 06/14/20 21 Dialysis patient 02/20/2010 11/28/2012 documented as of this encounter (statuses as of 10/23/2022) [facility] History of Past illness Narrative* Problem Noted Date Resolved Date Screen for colon cancer 06/09/2021 06/14/20 21 Dialysis patient 02/20/2010 11/28/2012 documented as of this encounter (statuses as of 10/25/2022) [facility]21 History of Past illness Narrative* Problem Noted Date Resolved Date Screen for colon cancer 06/09/2021 06/14/20 21 Dialysis patient 02/20/2010 11/28/2012 documented as of this encounter (statuses as of 10/31/2022) [address]03-2021 History of Past illness Narrative* Problem Noted Date Resolved Date Screen for colon cancer 06/09/2021 06/14/20 21 Dialysis patient 02/20/2010 11/28/2012 documented as of this encounter (statuses as of 11/06/2022) [address]03-2021 History of Past illness Narrative* Problem Noted Date Resolved Date Screen for colon cancer 06/09/2021 06/14/20 21 Dialysis patient 02/20/2010 11/28/2012 documented as of this encounter (statuses as of 11/08/2022) [address]03-2021 History of Past illness Narrative* Problem Noted Date Resolved Date Screen for colon cancer 06/09/2021 06/14/20 21 Dialysis patient 02/20/2010 11/28/2012 documented as of this encounter (statuses as of 11/08/2022) [address]03-2021 History of Past illness Narrative* Problem Noted Date Resolved Date Screen for colon cancer 06/09/2021 06/14/20 21 Dialysis patient 02/20/2010 11/28/2012 documented as of this encounter (statuses as of 11/16/2022) [facility]21 History of Past illness Narrative* Problem Noted Date Resolved Date Screen for colon cancer 06/09/2021 06/14/20 21 Dialysis patient 02/20/2010 11/28/2012 documented as of this encounter (statuses as of 12/06/2022) [facility]2021 History of Past illness Narrative* Problem Noted Date Resolved Date Screen for colon cancer 06/09/2021 06/14/20 21 Dialysis patient 02/20/2010 11/28/2012 documented as of this encounter (statuses as of 12/07/2022) [address]03-2021 History of Past illness Narrative* Problem Noted Date Resolved Date Screen for colon cancer 06/09/2021 06/14/20 21 Dialysis patient 02/20/2010 11/28/2012 documented as of this encounter (statuses as of 12/12/2022) [address]03-2021 History of Past illness Narrative* Problem Noted Date Resolved Date Screen for colon cancer 06/09/2021 06/14/20 21 Dialysis patient 02/20/2010 11/28/2012 documented as of this encounter (statuses as of 12/17/2022) [address]03-2021 History of Past illness Narrative* Problem Noted Date Resolved Date Screen for colon cancer 06/09/2021 06/14/20 21 Dialysis patient 02/20/2010 11/28/2012 documented as of this encounter (statuses as of 12/18/2022) [address]03-2021 History of Past illness Narrative* Problem Noted Date Resolved Date Screen for colon cancer 06/09/2021 06/14/20 21 Dialysis patient 02/20/2010 11/28/2012 documented as of this encounter (statuses as of 12/21/2022) [address]03-2021 History of Past illness Narrative* Problem Noted Date Resolved Date Screen for colon cancer 06/09/2021 06/14/20 21 Dialysis patient 02/20/2010 11/28/2012 documented as of this encounter (statuses as of 12/27/2022) [address]03-2021 History of Past illness Narrative* Problem Noted Date Resolved Date Screen for colon cancer 06/09/2021 06/14/20 21 Dialysis patient 02/20/2010 11/28/2012 documented as of this encounter (statuses as of 12/27/2022) [address]03-2021 History of Past illness Narrative* Problem Noted Date Resolved Date Screen for colon cancer 06/09/2021 06/14/20 21 Dialysis patient 02/20/2010 11/28/2012 documented as of this encounter (statuses as of 01/04/2023) [address]03-2021 History of Past illness Narrative* Problem Noted Date Resolved Date Screen for colon cancer 06/09/2021 06/14/20 21 Dialysis patient 02/20/2010 11/28/2012 documented as of this encounter (statuses as of 01/04/2023) [address]03-2021 History of Past illness Narrative* Problem Noted Date Resolved Date Screen for colon cancer 06/09/2021 06/14/20 21 Dialysis patient 02/20/2010 11/28/2012 documented as of this encounter (statuses as of 01/19/2023) [facility]21 History of Past illness Narrative* Problem Noted Date Resolved Date Screen for colon cancer 06/09/2021 06/14/20 21 Dialysis patient 02/20/2010 11/28/2012 documented as of this encounter (statuses as of 01/21/2023) [facility]21 History of Past illness Narrative* Problem Noted Date Resolved Date Screen for colon cancer 06/09/2021 06/14/20 21 Dialysis patient 02/20/2010 11/28/2012 documented as of this encounter (statuses as of 01/25/2023) [facility]21 History of Past illness Narrative* Problem Noted Date Resolved Date Screen for colon cancer 06/09/2021 06/14/20 21 Dialysis patient 02/20/2010 11/28/2012 documented as of this encounter (statuses as of 01/25/2023) [facility]21 History of Past illness Narrative* Problem Noted Date Resolved Date Screen for colon cancer 06/09/2021 06/14/20 21 Dialysis patient 02/20/2010 11/28/2012 documented as of this encounter (statuses as of 01/29/2023) [facility]21 History of Past illness Narrative* Problem Noted Date Resolved Date Screen for colon cancer 06/09/2021 06/14/20 21 Dialysis patient 02/20/2010 11/28/2012 documented as of this encounter (statuses as of 02/12/2023) [facility]21 History of Past illness Narrative* Problem Noted Date Resolved Date Screen for colon cancer 06/09/2021 06/14/20 21 Dialysis patient 02/20/2010 11/28/2012 documented as of this encounter (statuses as of 03/08/2023) [facility] History of Past illness Narrative* Problem Noted Date Resolved Date Screen for colon cancer 06/09/2021 06/14/20 21 Dialysis patient 02/20/2010 11/28/2012 documented as of this encounter (statuses as of 03/20/2023) [facility] History of Past illness Narrative* Problem Noted Date Resolved Date Screen for colon cancer 06/09/2021 06/14/20 21 Dialysis patient 02/20/2010 11/28/2012 documented as of this encounter (statuses as of 03/22/2023) [facility]21 History of Past illness Narrative* Problem Noted Date Resolved Date Screen for colon cancer 06/09/2021 06/14/20 21 Dialysis patient 02/20/2010 11/28/2012 documented as of this encounter (statuses as of 03/25/2023) [facility] History of Past illness Narrative* Problem Noted Date Resolved Date Screen for colon cancer 06/09/2021 06/14/20 21 Dialysis patient 02/20/2010 11/28/2012 documented as of this encounter (statuses as of 03/28/2023) [facility] History of Past illness Narrative* Problem Noted Date Resolved Date Screen for colon cancer 06/09/2021 06/14/20 21 Dialysis patient 02/20/2010 11/28/2012 documented as of this encounter (statuses as of 03/29/2023) [facility]21 History of Past illness Narrative* Problem Noted Date Diagnosed Date Resolved Date Screen for colon cancer 06/09/2021 09/0 05/2021 Dialysis patient 02/20/2010 11/28/2012 documented as of this encounter (statuses as of 06/27/2023) [facility]21 History of Past illness Narrative* Problem Noted Date Diagnosed Date Resolved Date Screen for colon cancer 06/09/2021 09/0 05/2021 Dialysis patient 02/20/2010 11/28/2012 documented as of this encounter (statuses as of 08/06/2023) [facility]05-04-2021 Evaluation note* Diagnosis Stage 3 chronic kidney disease, unspecified whether stage 3a or 3b CKD 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) Peripheral vascular disease, unspecified documented in this encounter [facility] Work Phone: Evaluation note* Diagnosis Benign prostatic hyperplasia with urinary obstruction- Primary Other age-related cataract of both eyes H/O kidney transplant Kidney replaced by transplant [facility] Diagnosis Benign prostatic hyperplasia with urinary obstruction- Primary Neurogenic bladder Neurogenic bladder, NOS [facility] Diagnosis BPH with obstruction/lower urinary tract symptoms- Primary Hypertrophy of prostate with urinary obstruction and other lower urinary tract symptoms (LUTS) 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) Mixed [...] urinary obstruction- Primary [facility] Benign pro[facility] with [...] ClinicEvaluation note* Diagnosis Coronary artery disease involving tangirnaq coronary artery of tangirnaq heart without angina pectoris- Primary Mixed hyperlipidemia [...] ClinicEvaluation note* Diagnosis Coronary artery disease involving tangirnaq coronary artery of tangirnaq heart without angina pectoris Claudication of both [...] unspecified Renal failure, chronic, stage 3 (moderate) ([facility]) Other osteoporosis without current pathological fracture documented [...] shoulder region, unspecified [facility] Diagnosis Pre-operative examination- Primary Preoperative examination, unspecified Benign prostatic hyperplasia with urinary obstruction Neurogenic bladder Neurogenic bladder, NOS VIC (obstructive sleep apnea) Obstructive sleep apnea (adult) (pediatric) Coronary artery disease involving tangirnaq coronary artery of tangirnaq heart without angina pectoris Claudication of both lower extremities (HCC) Chronic obstructive pulmonary disease, unspecified COPD type ([facility]) Abnormal EKG Nonspecific abnormal electrocardiogram (ECG) (EKG) Current mild episode of major depressive disorder, unspecified whether recurrent ([facility]) Deep vein thrombosis (DVT) of proximal lower extremity, unspecified chronicity, unspecified laterality ([facility]) VHD (valvular heart disease) Endocarditis, valve unspecified, [...] shoulder region, unspecified [facility] Diagnosis Coronary artery disease involving tangirnaq coronary artery of tangirnaq heart without angina pectoris- Primary Essential hypertension [...] shoulder region, unspecified [facility] Diagnosis Coronary artery disease involving tangirnaq coronary artery of tangirnaq heart without angina pectoris Essential hypertension Unspecified [...] shoulder region, unspecified [facility] Diagnosis Postoperative pain- Primary Other acute postoperative pain [facility]* Diagnosis Postoperative pain Other acute postoperative pain [facility]* Diagnosis S/P left rotator cuff repair- Primary S/P shoulder surgery Other postprocedural status [facility] Diagnosis Coronary artery disease involving tangirnaq coronary artery of tangirnaq heart without angina pectoris Claudication of both lower extremities ([facility]) Mixed hyperlipidemia [facility]* Diagnosis S/P left rotator cuff repair- Primary S/P shoulder surgery Other postprocedural status [facility]* Diagnosis S/P shoulder surgery- Primary Other postprocedural status [facility]* Diagnosis S/P shoulder surgery- Primary Other postprocedural status [facility]* Diagnosis S/P shoulder surgery- Primary Other postprocedural status [facility]* Diagnosis Sore throat- Primary Acute pharyngitis COPD with exacerbation (HCC) Obstructive chronic bronchitis with exacerbation [facility]* Diagnosis Atherosclerosis of tangirnaq artery of both lower extremities with intermittent claudication ([facility]) documented in this encounter [facility] note* Diagnosis S/P shoulder surgery- Primary Other postprocedural status documented [facility]* Diagnosis Postoperative pain- Primary Other acute postoperative pain S/P left rotator cuff repair S/P shoulder surgery Other postprocedural status Chronic left shoulder pain Pain in joint, shoulder region Traumatic incomplete tear of left rotator cuff, initial encounter Impingement syndrome of left shoulder Other affections of shoulder region, not elsewhere classified [facility] Diagnosis Atherosclerosis of artery of extremity with intermittent claudication (HCC)- Primary [facility] Diagnosis S/P left rotator cuff repair- Primary [facility] Diagnosis Acute COVID-19- Primary COPD with exacerbation (HCC) Obstructive chronic bronchitis with exacerbation documented [facility]* Diagnosis Kidney replaced by transplant- Primary Essential hypertension Unspecified essential hypertension Vitamin D deficiency Hyperparathyroidism ([facility]) Hyperparathyroidism, unspecified Benign prostatic hyperplasia without lower urinary tract symptoms Osteoporosis with current pathological fracture, unspecified osteoporosis type, initial encounter Stage 3b chronic kidney disease ([facility]) documented in this encounter [facility] Work Phone: History of Present illness Narrative* [...] list and allergy hx - were reviewed [facility] Work Phone: History of Present illness [...] list and allergy hx - were reviewed [id number] Work Phone: History of Present illness Narrative* [...] recent infection, hospitalization, surgery or ER visits. [id number] Work Phone: History of Present illness Narrative* [...] list and allergy hx - were reviewed [id number] Work Phone: Reason for referral (narrative)* Outpatient Procedure (Routine) - Pending Review Specialty Diagnoses / Procedures Referred By Surinder t Referred To Contact [facility] Diagnoses Benign prostatic hyperplasia with urinary obstruction Procedures URODYNAMICS CADE POST-VOIDING RESIDUAL URINE&/BLADDER CAP Laurie Badillo DO [address] [place] [address] [facility] [address] [place] [id number] Referral ID Status Reason Start Date Expiration Date Visits Requested Visits Authorized [id number] Pending Review Auto-Generat ed Referral 03/06/2022 03/06/[address] [facility] for referral (narrative)* Diagnostic Procedure Only (Routine) - Closed Specialty Diagnoses / Procedures Referred By Contac t Referred To Contact US IMAGING Diagnoses Renal failure, chronic, stage 3 (moderate) (HCC) H/O kidney transplant Neurogenic bladder BPH with obstruction/lower urinary tract symptoms Procedures US PELVIS BLADDER US PELVIC NONOBSTETRIC IMAGE DCMTN LIMITED/F/U Diana Tate PA-C [address] [place] [address] Us Imaging Referral ID Status Reason Start Date Expiration Date V isits Requested Visits Authorized [id number] Closed Auto-Generate d Referral 02/19/2022 03/21/2023 1 1 * Consult, Test, Treat (Routine) - Closed Specialty Diagnoses / Procedures Referred By Contac t Referred To Contact Urology Diagnoses BPH with obstruction/lower urinary tract symptoms Procedures CONSULT TO UROLOGY OFFICE/OUTPATIENT NEW HIGH MDM 60-74 MINUTES Diana Tate PA-C [id number] [place] [address] Referral ID Status Reason Start Date Expiration Date V isits Requested Visits Authorized [id number] Closed PCP Requested Referral 02/26/2022 02/19/[address] [facility] for referral (narrative)* Diagnostic Procedure Only (Routine) - Pending Review Specialty Diagnoses / Procedures Referred By Contac t Referred To Contact XR IMAGING Diagnoses H/O kidney transplant Hyperparathyroidism (HCC) Renal failure, chronic, stage 3 (moderate) (HCC) Other osteoporosis without current pathological fracture Procedures DXA-AXIAL SKELETON WITH VFA DXA BONE DENSITY STUDY AXIAL SKELETON Diana Tate PA-C [id number] [place] [address] Xr Imaging Referral ID Status Reason Start Date Expiration Date Visits Requested Visits Authorized [id number] Pending Review Auto-Generat ed Referral 10/15/2023 1 1 * Consult, Test, Treat (Routine) - Authorized Specialty Diagnoses / Procedures Referred By Contac t Referred To Contact Cardiology Diagnoses Coronary artery disease involving tangirnaq coronary artery of tangirnaq heart without angina pectoris Claudication of both lower extremities (HCC) Mixed hyperlipidemia Procedures CONSULT TO CARDIOLOGY OFFICE/OUTPATIENT [facility] 60-74 MINUTES Diana Tate PA-C [address] [place] [address] Referral ID Status Reason Start Date Expiration Date Visits Requested Visits Authorized [id number] Authorized PCP Requested Referral 09/14/2022 09/14/2023 1 1 * Physical Therapy (Routine) - Pending Review Specialty Diagnoses / Procedures Referred By Contac t Referred To Contact [facility] Diagnoses Coronary artery disease involving tangirnaq coronary artery of tangirnaq heart without angina pectoris Claudication of both lower extremities (HCC) Mixed hyperlipidemia Traumatic incomplete tear of left rotator cuff, subsequent encounter Procedures CONSULT TO PHYSICAL THERAPY PHYSICAL THERAPY EVALUATION [facility] COM[facility]X 45 MINS Diana Tate PA-C [address] [place] [address] [facility] [place] [address] [place] [address] Referral ID Status Reason Start Date Expiration Date Visits Requested Visits Authorized [id number] Pending Review Auto-Generat ed Referral 09/14/2022 09/14/2023 1 1 [facility] Outpatient Procedure (Routine) - Closed Specialty Diagnoses / Procedures Referred By Contac t Referred To Contact [facility] Diagnoses Pre-operative examination Procedures ECG COMPLETE ECG ROUTINE ECG W/LEAST 12 LDS W/I&R Sallie Carlisle S, VESSEL TRAFFIC OFFICER.CHIP FRIER [address] [place] [address] [facility] [address] [address] Referral ID Status Reason Start Date Expiration Date V isits Requested Visits Authorized [id number] Closed Auto-Generate d Referral 12/10/2022 12/10/[address] [facility] for referral (narrative)* Outpatient Procedure (Routine) - Authorized Specialty Diagnoses / Procedures Referred By Contac t Referred To Contact [facility] [place] Diagnoses Coronary artery disease involving tangirnaq coronary artery of tangirnaq heart without angina pectoris Essential hypertension Dyslipidemia Pre-operative cardiovascular examination Procedures ECHO ECHO TTHRC R-T 2D W/WOM-MODE COMPL SPEC&[place] [address] [place] [address] [facility] [address] [address] Referral ID Status Reason Start Date Expiration Date Visits Requested Visits Authorized [id number] Authorized Auto-Generat ed Referral 10/07/2022 10/06/2023 1 1 * Outpatient Procedure (Routine) - Pending Review Specialty Diagnoses / Procedures Referred By Contac t Referred To [facility] [place] Diagnoses Coronary artery disease involving tangirnaq coronary artery of tangirnaq heart without angina pectoris Essential hypertension Dyslipidemia Pre-operative cardiovascular examination Procedures ECG COMPLETE ECG ROUTINE ECG W/LEAST 12 LDS W/I&[place] [address] [place] [address] [id number] [place] [address] Referral ID Status Reason Start Date Expiration Date Visits Requested Visits Authorized [id number] Pending Review Auto-Generat ed Referral 12/18/2022 12/18/[address] [facility] for referral (narrative)* Outpatient Procedure (Routine) - Closed Specialty Diagnoses / Procedures Referred By Contac t Referred To Contact [facility] [place] Diagnoses Coronary artery disease involving tangirnaq coronary artery of tangirnaq heart without angina pectoris Essential hypertension Dyslipidemia Pre-operative cardiovascular examination Procedures ECHO ECHO TTHRC R-T 2D W/WOM-MODE COMPL SPEC&COLR D Ledy Ivy MD [address] [place] [address] [facility] [place] [address] [place] [id number] Referral ID Status Reason Start Date Expiration Date V isits Requested Visits Authorized [id number] Closed Auto-Generate d Referral 10/07/2022 10/06/[address] [facility] for visit Narrative* Outpatient Procedure (Routine) - Closed Specialty Diagnoses / Procedures Referred By Surinder munroe Referred To Contact [facility] [place] Diagnoses Coronary artery disease involving tangirnaq coronary artery of tangirnaq heart without angina pectoris Essential hypertension Dyslipidemia Pre-operative cardiovascular examination Procedures ECHO ECHO TTHRC R-T 2D W/WOM-MODE COMPL SPEC&COLR D Ledy Ivy MD [address] [place] [address] [facility] [address] [address] Referral ID Status Reason Start Date Expiration Date V isits Requested Visits Authorized [id number] Closed Auto-Generate d Referral 10/07/2022 10/06/2023 1 1 [facility] Summary Purpose Family History No Family History Records FoundNo Family History Records FoundNo Family History Records FoundNo Family History Records FoundNo Family History Records FoundNo Family History Records FoundNo Family History Records FoundNo Family History Records FoundNo Family History Records Found Advance Directives Documents on File Type Date Recorded Patient Gas Meter Prover Expl anation Advance Directives and Living Will Power of Public Health Epidemiologist Latest Code Status on File Code Status Date Activated Date Inactivated Comments Full Code 02/11/2018 5:24 PM 02/15/2018 7:47 PM Full Code 02/11/2018 9:57 AM 02/11/2018 5:24 PM Full Code 01/24/2018 8:53 AM 01/24/2018 4:54 PM Full Code 12/27/2017 2:36 PM 12/28/2017 5:02 PM Full Code 12/27/2017 1:01 PM 12/27/2017 2:36 PM Documents on File Type Date Recorded Patient Gas Meter Prover Expl anation ACP-Advance Directive ACP-Power of Public Health Epidemiologist Latest Code Status on File Code Status Date Activated Date Inactivated Comments Full Code 02/11/2018 5:24 PM 02/15/2018 7:47 PM Full Code 02/11/2018 9:57 AM 02/11/2018 5:24 PM Full Code 01/24/2018 8:53 AM 01/24/2018 4:54 PM Full Code 12/27/2017 2:36 PM 12/28/2017 5:02 PM Full Code 12/27/2017 1:01 PM 12/27/2017 2:36 PM Documents on File Type Date Recorded Patient Gas Meter Prover Expl anation Advance Directive(s) Advance Directive(s) 06/14/2021 6:21 AM Advance Directive(s) 05/18/2021 1:26 PM Documents on File Type Date Recorded Patient Gas Meter Prover Expl anation Advance Directive(s) Advance Directive(s) 06/14/2021 [...] or dog food bags, or a vacuum wall cleaner. Your dressing will be removed at [...] call and ask for the Interventional Radiologist senior information security architect. Where can you learn more? Go to [email or web address] and sign in to your [employer] account. Enter P616 in the Search Health Information box to learn more about Hemodialysis Access: What to Expect at Home. If you do not have an account, please click on the Sign Up Now link. Current as of: August 22, 2016 Content Version: 11.2 [id number] [employer]. Care instructions adapted under license by [employer]. If youhave questions about a medical condition or this instruction, always ask your healthcare professional. [employer] disclaims any warranty or liability for your use of this information. documented in this encounter History of Present Illness * Elisha Bentley RN - 03/01/2020 3:28 PM EDT coming to [facility]. D/C inst given. Taking snack in OBS. [...] of other specified arteries Diagnosis Atherosclerosis of tangirnaq artery 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) Atherosclerosis of tangirnaq arteries of the extremities with intermittent claudication Reason for Referral Status Reason Specialty Diagnoses / Procedures Re ferred By Contact Referred To Contact Authorized Radiology Diagnoses Atherosclerosis of tangirnaq artery 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) Procedures VL DUP LOWER EXTREMITY ARTERIES BILATERAL Guido Jauregui MD [address] [place] [address] Status Reason Specialty Diagnoses / Procedures Referred By Contact Referred To Contact Authorized Radiology Diagnoses Stage 3 chronic kidney disease, unspecified whether stage 3a or 3b CKD 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) Procedures VL DUP LOWER EXTREMITY ARTERIES BILATERAL Guido Jauregui MD [address] [place] [address] Specialty Diagnoses / Procedures Referred By Contac t Referred To Contact Orthopedics Diagnoses Acute pain of left shoulder Procedures CONSULT TO ORTHOPAEDICS OFFICE/OUTPATIENT [facility] 60-74 MINUTES Isabel Guillaume APRN.CHIP FRIER [address] [place] [address] Referral ID Status Reason Start Date Expiration Date Visits Requested Visits Authorized [id number] Authorized PCP Requested Referral 05/04/2022 05/04/2023 1 1 Specialty Diagnoses / Procedures Referred By Contac t Referred To Contact XR IMAGING Diagnoses Acute pain of left shoulder Procedures XR SHOULDER LIMITED 2V AP/TRUE AP LEFT RADEX SHOULDER COMPLETE MINIMUM 2 VIEWS Isabel Guillaume, VESSEL TRAFFIC OFFICER.CHIP FRIER [address] [place] [address] Xr Imaging Referral ID Status Reason Start Date Expiration Date V isits Requested Visits Authorized [id number] Closed Auto-Generate d Referral 05/04/2022 06/03/2023 1 1 Specialty Diagnoses / Procedures Referred By Contac t Referred To Contact MR IMAGING Diagnoses Acute pain of left shoulder Traumatic tear of left rotator cuff, unspecified tear extent, initial encounter Procedures MRI SHOULDER WO IVCON LT MRI ANY JT UPPER EXTREMITY W/O CONTRAST MATRL Maynor Baldwin MD [address] [place] [address] Mr Imaging Referral ID Status Reason Start Date Expiration Date Visits Requested Visits Authorized [id number] Authorized Auto-Generat ed Referral 05/21/2022 06/26/2022 1 1 Specialty Diagnoses / Procedures Referred By Contac t Referred To Contact [facility] Diagnoses Coronary artery disease involving tangirnaq coronary artery of tangirnaq heart without angina pectoris Claudication of both lower extremities (HCC) Mixed hyperlipidemia Traumatic incomplete tear of left rotator cuff, subsequent encounter Procedures PT REHAB FOLLOW UP ORDER THERAPEUTIC EXERCISES RE, EA 15 MIN. Pt [facility] [address] [place] [address] [facility] [address] [address] Referral ID Status Reason Start Date Expiration Date Visits Requested Visits Authorized [id number] Pending Review PCP Requested Referral Auto-Generate d Referral 2 12/19/2022 1 1 Specialty Diagnoses / Procedures Referred By Contac t Referred To Contact [facility] Diagnoses S/P left rotator cuff repair S/P shoulder surgery Procedures CONSULT TO PHYSICAL THERAPY PHYSICAL THERAPY EVALUATION HIGH COMPLEX 45 MINS Abraham Evans PA-C [address] [place] [address] [facility] [address] [address] Referral ID Status Reason Start Date Expiration Date Visits Requested Visits Authorized [id number] Pending Review Auto-Generat ed Referral 01/18/2023 01/18/2024 1 1 Specialty Diagnoses / Procedures Referred By Contac t Referred To Contact [facility] Diagnoses S/P left rotator cuff repair S/P shoulder surgery Procedures PT REHAB FOLLOW UP ORDER THERAPEUTIC EXERCISES RE, EA 15 MIN. Lazaro Gonzalez, PT [address] [place] [address] [facility] [address] [address] Referral ID Status Reason Start Date Expiration Date V isits Requested Visits Authorized [id number] Closed PCP Requested Referral Auto-Generated Referral 01/25/2023 04/25/2023 1 1 Specialty Diagnoses / Procedures Referred By Contac t Referred To Contact Cardiology Diagnoses Atherosclerosis of tangirnaq artery 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) Procedures Vascular US lower extremity arterial duplex left with CHEL Asia Cha PA-C [address] [place] [address] [address] Non-Invasive Cardiology [address] [place] [address] Referral ID Status Reason Start Date Expiration Date V isits Requested Visits Authorized [id number] Closed Perform Procedure 03/05/2023 09/01/2023 1 1 Specialty Diagnoses / Procedures Referred By Contac t Referred To Contact Cardiology Diagnoses Atherosclerosis of artery of extremity with intermittent claudication (HCC) Procedures Vascular US lower extremity arterial PVR with exercise Jennifer Sutton APRN - CNP [address] [place] [address] Referral ID Status Reason Start Date Expiration Date Visits Requested Visits Authorized [id number] Pending Review Perform Procedure 05/27/2023 11/23/2023 1 1 Specialty Diagnoses / Procedures Referred By Contac t Referred To Contact Diagnoses Kidney replaced by transplant Osteoporosis with current pathological fracture, unspecified osteoporosis type, initial encounter Stage 3b chronic kidney disease ([facility]) [place] [address] Department [place] [address] Referral ID Status Reason Start Date Expiration Date V isits Requested Visits Authorized [id number] Pending Review 11/14/2023 11/13/2024 1 1 Chief [...] DATE CREATED AUTHOR AUTHOR'S ORGANIZ ATION 02/24/2019 [facility] DATE CREATED AUTHOR AUTHOR'S ORGANIZ ATION 12/20/2021 [facility] DATE CREATED AUTHOR AUTHOR'S ORGANIZ ATION 05/18/2022 [facility] DATE CREATED AUTHOR AUTHOR'S ORGANIZ ATION 12/27/2022 [facility] DATE CREATED AUTHOR AUTHOR'S ORGANIZ ATION 06/01/2023 [facility] DATE CREATED AUTHOR AUTHOR'S ORGANIZ ATION 06/06/2023 [employer] DATE CREATED AUTHOR AUTHOR'S ORGANIZ ATION 06/08/2023 [facility] DATE CREATED AUTHOR AUTHOR'S ORGANIZ ATION 10/14/2023 [facility] Source Comments (unrecognize d section and content) In the event this informatio n is protected by the Federal Confidentiality of Alcohol and Drug Abuse Patient Records regulations: The Federal rules restrict any use of the information to criminally investigate or prosecute any alcohol or drug abuse patient.[facility] the event this information is protected by the Federal Confidentiality of Alcohol and Drug Abuse Patient Records regulations: The Federal rules restrict any use of the information to criminally investigate or prosecute any alcohol or drug abuse patient.[facility] Campus[facility] the event this information is protected by the Federal Confidentiality of Alcohol and Drug Abuse Patient Records regulations: The Federal rules restrict any use of the information to criminally investigate or prosecute any alcohol or drug abuse patient.[facility] Campus[facility] the event this information is protected by the Federal Confidentiality of Alcohol and Drug Abuse Patient Records regulations: The Federal rules restrict any use of the information to criminally investigate or prosecute any alcohol or drug abuse patient.[facility] CampusIn the event this information is protected by the Federal Confidentiality of Alcohol and Drug Abuse Patient Records regulations: The Federal rules restrict any use of the information to criminally investigate or prosecute any alcohol or drug abuse patient.[facility] CampusIn the event this information is protected by the Federal Confidentiality of Alcohol and Drug Abuse Patient Records regulations: The Federal rules restrict any use of the information to criminally investigate or prosecute any alcohol or drug abuse patient.[facility] CampusIn the event this information is protected by the Federal Confidentiality of Alcohol and Drug Abuse Patient Records regulations: The Federal rules restrict any use of the information to criminally investigate or prosecute any alcohol or drug abuse patient.[facility] CampusIn the event this information is protected by the Federal Confidentiality of Alcohol and Drug Abuse Patient Records regulations: The Federal rules restrict any use of the information to criminally investigate or prosecute any alcohol or drug abuse patient.[facility] CampusIn the event this information is protected by the Federal Confidentiality of Alcohol and Drug Abuse Patient Records regulations: The Federal rules restrict any use of the information to criminally investigate or prosecute any alcohol or drug abuse patient.[facility] CampusIn the event this information is protected by the Federal Confidentiality of Alcohol and Drug Abuse Patient Records regulations: The Federal rules restrict any use of the information to criminally investigate or prosecute any alcohol or drug abuse patient.[facility] CampusIn the event this information is protected by the Federal Confidentiality of Alcohol and Drug Abuse Patient Records regulations: The Federal rules restrict any use of the information to criminally investigate or prosecute any alcohol or drug abuse patient.[facility] CampusIn the event this information is protected by the Federal Confidentiality of Alcohol and Drug Abuse Patient Records regulations: The Federal rules restrict any use of the information to criminally investigate or prosecute any alcohol or drug abuse patient.[facility] CampusIn the event this information is protected by the Federal Confidentiality of Alcohol and Drug Abuse Patient Records regulations: The Federal rules restrict any use of the information to criminally investigate or prosecute any alcohol or drug abuse patient.[facility] CampusIn the event this information is protected by the Federal Confidentiality of Alcohol and Drug Abuse Patient Records regulations: The Federal rules restrict any use of the information to criminally investigate or prosecute any alcohol or drug abuse patient.[facility] CampusIn the event this information is protected by the Federal Confidentiality of Alcohol and Drug Abuse Patient Records regulations: The Federal rules restrict any use of the information to criminally investigate or prosecute any alcohol or drug abuse patient.[facility] CampusIn the event this information is protected by the Federal Confidentiality of Alcohol and Drug Abuse Patient Records regulations: The Federal rules restrict any use of the information to criminally investigate or prosecute any alcohol or drug abuse patient.[facility] CampusIn the event this information is protected by the Federal Confidentiality of Alcohol and Drug Abuse Patient Records regulations: The Federal rules restrict any use of the information to criminally investigate or prosecute any alcohol or drug abuse patient.[facility] CampusIn the event this information is protected by the Federal Confidentiality of Alcohol and Drug Abuse Patient Records regulations: The Federal rules restrict any use of the information to criminally investigate or prosecute any alcohol or drug abuse patient.[facility] CampusIn the event this information is protected by the Federal Confidentiality of Alcohol and Drug Abuse Patient Records regulations: The Federal rules restrict any use of the information to criminally investigate or prosecute any alcohol or drug abuse patient.[facility] CampusIn the event this information is protected by the Federal Confidentiality of Alcohol and Drug Abuse Patient Records regulations: The Federal rules restrict any use of the information to criminally investigate or prosecute any alcohol or drug abuse patient.[facility] CampusIn the event this information is protected by the Federal Confidentiality of Alcohol and Drug Abuse Patient Records regulations: The Federal rules restrict any use of the information to criminally investigate or prosecute any alcohol or drug abuse patient.[facility] CampusIn the event this information is protected by the Federal Confidentiality of Alcohol and Drug Abuse Patient Records regulations: The Federal rules restrict any use of the information to criminally investigate or prosecute any alcohol or drug abuse patient.[facility] CampusIn the event this information is protected by the Federal Confidentiality of Alcohol and Drug Abuse Patient Records regulations: The Federal rules restrict any use of the information to criminally investigate or prosecute any alcohol or drug abuse patient.[facility] CampusIn the event this information is protected by the Federal Confidentiality of Alcohol and Drug Abuse Patient Records regulations: The Federal rules restrict any use of the information to criminally investigate or prosecute any alcohol or drug abuse patient.[facility] CampusIn the event this information is protected by the Federal Confidentiality of Alcohol and Drug Abuse Patient Records regulations: The Federal rules restrict any use of the information to criminally investigate or prosecute any alcohol or drug abuse patient.[facility] CampusIn the event this information is protected by the Federal Confidentiality of Alcohol and Drug Abuse Patient Records regulations: The Federal rules restrict any use of the information to criminally investigate or prosecute any alcohol or drug abuse patient.[facility] CampusIn the event this information is protected by the Federal Confidentiality of Alcohol and Drug Abuse Patient Records regulations: The Federal rules restrict any use of the information to criminally investigate or prosecute any alcohol or drug abuse patient.[facility] CampusIn the event this information is protected by the Federal Confidentiality of Alcohol and Drug Abuse Patient Records regulations: The Federal rules restrict any use of the information to criminally investigate or prosecute any alcohol or drug abuse patient.[facility] CampusIn the event this information is protected by the Federal Confidentiality of Alcohol and Drug Abuse Patient Records regulations: The Federal rules restrict any use of the information to criminally investigate or prosecute any alcohol or drug abuse patient.[facility] CampusIn the event this information is protected by the Federal Confidentiality of Alcohol and Drug Abuse Patient Records regulations: The Federal rules restrict any use of the information to criminally investigate or prosecute any alcohol or drug abuse patient.[facility] CampusIn the event this information is protected by the Federal Confidentiality of Alcohol and Drug Abuse Patient Records regulations: The Federal rules restrict any use of the information to criminally investigate or prosecute any alcohol or drug abuse patient.[facility] CampusIn the event this information is protected by the Federal Confidentiality of Alcohol and Drug Abuse Patient Records regulations: The Federal rules restrict any use of the information to criminally investigate or prosecute any alcohol or drug abuse patient.[facility] CampusIn the event this information is protected by the Federal Confidentiality of Alcohol and Drug Abuse Patient Records regulations: The Federal rules restrict any use of the information to criminally investigate or prosecute any alcohol or drug abuse patient.[facility] CampusIn the event this information is protected by the Federal Confidentiality of Alcohol and Drug Abuse Patient Records regulations: The Federal rules restrict any use of the information to criminally investigate or prosecute any alcohol or drug abuse patient.[facility] CampusIn the event this information is protected by the Federal Confidentiality of Alcohol and Drug Abuse Patient Records regulations: The Federal rules restrict any use of the information to criminally investigate or prosecute any alcohol or drug abuse patient.[facility] CampusIn the event this information is protected by the Federal Confidentiality of Alcohol and Drug Abuse Patient Records regulations: The Federal rules restrict any use of the information to criminally investigate or prosecute any alcohol or drug abuse patient.[facility] CampusIn the event this information is protected by the Federal Confidentiality of Alcohol and Drug Abuse Patient Records regulations: The Federal rules restrict any use of the information to criminally investigate or prosecute any alcohol or drug abuse patient.[facility] CampusIn the event this information is protected by the Federal Confidentiality of Alcohol and Drug Abuse Patient Records regulations: The Federal rules restrict any use of the information to criminally investigate or prosecute any alcohol or drug abuse patient.[facility] CampusIn the event this information is protected by the Federal Confidentiality of Alcohol and Drug Abuse Patient Records regulations: The Federal rules restrict any use of the information to criminally investigate or prosecute any alcohol or drug abuse patient.[facility] CampusIn the event this information is protected by the Federal Confidentiality of Alcohol and Drug Abuse Patient Records regulations: The Federal rules restrict any use of the information to criminally investigate or prosecute any alcohol or drug abuse patient.[facility] CampusIn the event this information is protected by the Federal Confidentiality of Alcohol and Drug Abuse Patient Records regulations: The Federal rules restrict any use of the information to criminally investigate or prosecute any alcohol or drug abuse patient.[facility] CampusIn the event this information is protected by the Federal Confidentiality of Alcohol and Drug Abuse Patient Records regulations: The Federal rules restrict any use of the information to criminally investigate or prosecute any alcohol or drug abuse patient.[facility] CampusIn the event this information is protected by the Federal Confidentiality of Alcohol and Drug Abuse Patient Records regulations: The Federal rules restrict any use of the information to criminally investigate or prosecute any alcohol or drug abuse patient.[facility] CampusIn the event this information is protected by the Federal Confidentiality of Alcohol and Drug Abuse Patient Records regulations: The Federal rules restrict any use of the information to criminally investigate or prosecute any alcohol or drug abuse patient.[facility] CampusIn the event this information is protected by the Federal Confidentiality of Alcohol and Drug Abuse Patient Records regulations: The Federal rules restrict any use of the information to criminally investigate or prosecute any alcohol or drug abuse patient.[facility] CampusIn the event this information is protected by the Federal Confidentiality of Alcohol and Drug Abuse Patient Records regulations: The Federal rules restrict any use of the information to criminally investigate or prosecute any alcohol or drug abuse patient.[facility] CampusIn the event this information is protected by the Federal Confidentiality of Alcohol and Drug Abuse Patient Records regulations: The Federal rules restrict any use of the information to criminally investigate or prosecute any alcohol or drug abuse patient.[facility] CampusIn the event this information is protected by the Federal Confidentiality of Alcohol and Drug Abuse Patient Records regulations: The Federal rules restrict any use of the information to criminally investigate or prosecute any alcohol or drug abuse patient.[facility] CampusIn the event this information is protected by the Federal Confidentiality of Alcohol and Drug Abuse Patient Records regulations: The Federal rules restrict any use of the information to criminally investigate or prosecute any alcohol or drug abuse patient.[facility] CampusIn the event this information is protected by the Federal Confidentiality of Alcohol and Drug Abuse Patient Records regulations: The Federal rules restrict any use of the information to criminally investigate or prosecute any alcohol or drug abuse patient.[facility] CampusIn the event this information is protected by the Federal Confidentiality of Alcohol and Drug Abuse Patient Records regulations: The Federal rules restrict any use of the information to criminally investigate or prosecute any alcohol or drug abuse patient.[facility] Reason for Visit (unrecogniz ed section and content) Specialty Diagnoses / Procedures Referred By Surinder t Referred To Contact PHYSICAL THERAPY Diagnoses S/P left rotator cuff repair S/P shoulder surgery Z98.890 (ICD-10-CM) - S/P left rotator cuff repair Z98.890 (ICD-10-CM) - S/P shoulder surgery Procedures PT REHAB FOLLOW UP ORDER THERAPEUTIC EXERCISES RE, EA 15 MIN. Diana Tate PA-C [address] [place] [address] Pt [facility] [address] [place] [address] Referral ID Status Reason Start Date Expiration Date Visits Requested Visits Authorized [id number] Authorized PCP Requested Referral Auto-Generate d Referral 02/04/2023 10/06/2023 60 60 Reason Comments Physical Therapy Specialty Diagnoses / Procedures Referred By Contac t Referred To Contact Physical Therapy / PHYSICAL THERAPY Diagnoses Follow up Procedures EST RS PT ORTH Diana Montano PA-C [address] [place] [address] Tonny De Guzman, PT [address] [place] [address] Referral ID Status Reason Start Date Expiration Date V isits Requested Visits Authorized [id number] Authorized 10/07/2022 02/04/2023 20 20 Reason Comments PT Eval Specialty Diagnoses / Procedures Referred By Contac t Referred To Contact Physical Therapy / PHYSICAL THERAPY Diagnoses Follow up Procedures EST RS PT ORTH Diana Montano PA-C [address] [place] [address] Tonny De Guzman, PT [address] [place] [address] Reason Comments PT Discharge Physical Therapy Referral ID Status Reason Start Date Expiration Date V isits Requested Visits Authorized [id number] Authorized 10/07/2022 10/06/2023 20 20 Reason Comments Physical Therapy PT Progress Note Reason Comments Appointment Reason Comments Consult Specialty Diagnoses / Procedures Referred By Contac t Referred To Contact Urology Diagnoses BPH with obstruction/lower urinary tract symptoms Procedures CONSULT TO UROLOGY OFFICE/OUTPATIENT [facility] 60-74 MINUTES Diana Tate PA-C [address] [place] [address] Referral ID Status Reason Start Date Expiration Date V isits Requested Visits Authorized [id number] Closed PCP Requested Referral 02/26/2022 02/19/2023 1 [...] left shoulder Procedures CONSULT TO ORTHOPAEDICS OFFICE/OUTPATIENT [facility] 60-74 MINUTES Isabel Guillaume APRN.CHIP F[employer]ER [address] [id number] Referral ID Status Reason Start Date Expiration Date V isits Requested Visits Authorized [id number] Closed PCP Requested Referral 05/04/2022 05/04/2023 1 [...] THERAPY INS Diagnoses Coronary artery disease involving tangirnaq coronary artery of tangirnaq heart without angina pectoris Claudication of both lower extremities (HCC) Mixed hyperlipidemia Traumatic incomplete tear of left rotator cuff, subsequent encounter Procedures CONSULT TO PHYSICAL THERAPY PHYSICAL THERAPY EVALUATION HIGH COMPLEX 45 MINS Diana Tate PA-C [address] [place] [address] [facility] [address] [place] [address] Referral ID Status Reason Start Date Expiration Date Visits Requested Visits Authorized [id number] Authorized Auto-Generat ed Referral 02/04/2022 10/06/2022 20 20 Specialty Diagnoses / Procedures Referred By Surinder munroe Referred To Contact [facility] Diagnoses Coronary artery disease involving tangirnaq coronary artery of tangirnaq heart without angina pectoris Claudication of both lower extremities (HCC) Mixed hyperlipidemia Traumatic incomplete tear of left rotator cuff, subsequent encounter Procedures CONSULT TO PHYSICAL THERAPY PHYSICAL THERAPY EVALUATION HIGH COMPLEX 45 MINS Diana Tate PA-C [address] [place] [address] [facility] [address] [place] [address] Reason Comments Established Patient 15 weeks 4 days post visit Left shoulder pain with injection given - wants injection Reason Comments Results Reason Comments Follow Up Pain 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 Comments 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 Reason Comments New Pain Reason Comments Cardiac Clearance Reason Comments Consult Reason Comments New Patient Cardiac Clearance Reason Comments Patient Update Reason Comments Results echo Specialty Diagnoses / Procedures Referred By Surinder munroe Referred To Contact [facility] Diagnoses Traumatic incomplete tear of [...] WITH SUBACROMIAL DECOMPRESSION TENODESIS LONG TENDON B[place] [facility] [place] [address] [place] [address] Referral ID Status Reason Start Date Expiration Date Visits Re quested Visits Authorized [id number] 1 1 Reason Comments Medication Problem Reason Comments Established Patient Follow Up Post Op Reason Comments New Patient Specialty Diagnoses / Procedures Referred By Surinder munroe Referred To Contact Cardiology Diagnoses Coronary artery disease involving tangirnaq coronary artery of tangirnaq heart without angina pectoris Claudication of both lower extremities (HCC) Mixed hyperlipidemia Procedures CONSULT TO CARDIOLOGY OFFICE/OUTPATIENT NEW HIGH MDM 60-74 MINUTES Diana Ttae PA-C [address] [place] [address] Referral ID Status Reason Start Date Expiration Date V isits Requested Visits Authorized [id number] Closed PCP Requested Referral 09/14/2022 09/14/2023 1 1 Reason Onset Date Comments Refill Request 01/25/2023 Reason Comments Sore Throat ST, cough, bodyaches and fever x 1 day Specialty Diagnoses / Procedures Referred By Surinder t Referred To Contact Cardiology Diagnoses Atherosclerosis of tangirnaq artery 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) Procedures Vascular US lower extremity arterial duplex left with CHEL Asia Cha PA-C [address] [place] [address] [address] Non-Invasive Cardiology [address] [place] [address] Referral ID Status Reason Start Date Expiration Date V isits Requested Visits Authorized [id number] Closed Perform Procedure 03/05/2023 09/01/2023 1 1 Reason Comments Follow-up recall arterial dupl ex 03/20/23 Reason Onset Date Comments Test Scheduling 05/30/2023 PVR Reason Comments Covid19 Concern + x6 days, cough, SO B, chest congestion Care Teams (unrecognized sec tion and content) Deck Mechanic Relationship Specialty Start Date End Date Diana Tate PA-C [address] [place] [address] PCP - General Family Practice 05/29/17 Deck Mechanic Relationship Specialty Start Date End Date Diana Tate PA-C [address] [place], [place] [id number] PCP - General Family Practice 05/29/17 Deck Mechanic Relationship Specialty Start Date End Date Diana Tate PA-C [address] [place] [address] PCP - General Family Practice 05/29/17 Deck Mechanic Relationship Specialty Start Date End Date Diana Tate PA-C [address] [place] [address] PCP - General Family Practice 05/29/17 Deck Mechanic Relationship Specialty Start Date End Date Diana Tate PA-C [address] [facility] [place] [address] PCP - General Family Practice 05/29/17 Deck Mechanic Relationship Specialty Start Date End Date Diana Tate PA-C [address] [facility] [place] [address] PCP - General Family Practice 05/29/17 Deck Mechanic Relationship Specialty Start Date End Date Diana Tate PA-C [address] [facility] [place] [address] PCP - General Family Practice 05/29/17 Deck Mechanic Relationship Specialty Start Date End Date Diana Tate PA-C [address] [facility] [place] [address] PCP - General Family Medicine 05/29/17 Deck Mechanic Relationship Specialty Start Date End Date Diana Tate PA-C [address] [facility] [place] [address] PCP - General Family Medicine 05/29/17 Deck Mechanic Relationship Specialty Start Date End Date Diana Tate PA-C [address] [facility] [place] [address] PCP - General Family Medicine 05/29/17 Deck Mechanic Relationship Specialty Start Date End Date Diana Tate PA-C [address] [facility] [place] [address] PCP - General Family Medicine 05/29/17 Deck Mechanic Relationship Specialty Start Date End Date Diana Tate PA-C [address] [facility] [place] [address] PCP - General Family Medicine 05/29/17 Deck Mechanic Relationship Specialty Start Date End Date Diana Tate PA-C [address] [facility] [place] [address] PCP - General Family Medicine 05/29/17 Deck Mechanic Relationship Specialty Start Date End Date Diana Tate PA-C [address] [facility] [place] [address] PCP - General Family Medicine 05/29/17 Deck Mechanic Relationship Specialty Start Date End Date Diana Tate PA-C [address] [facility] [place] [address] PCP - General Family Medicine 05/29/17 Deck Mechanic Relationship Specialty Start Date End Date Diana Tate PA-C [address] [facility] [place] [address] PCP - General Family Medicine 05/29/17 Deck Mechanic Relationship Specialty Start Date End Date Diana Tate PA-C [address] [facility] [place] [address] PCP - General Family Medicine 05/29/17 Deck Mechanic Relationship Specialty Start Date End Date Diana Tate PA-C [address] [facility] [place] [address] PCP - General Family Medicine 05/29/17 Deck Mechanic Relationship Specialty Start Date End Date Diana Tate PA-C [address] [facility] [place] [address] PCP - General Family Medicine 05/29/17 Deck Mechanic Relationship Specialty Start Date End Date Diana Tate PA-C [address] [facility] [place] [address] PCP - General Family Medicine 05/29/17 Deck Mechanic Relationship Specialty Start Date End Date Diana Tate PA-C [address] [place] [address] PCP - General Family Medicine 05/29/17 Deck Mechanic Relationship Specialty Start Date End Date Diana Tate PA-C [address] [place] [address] PCP - General Family Medicine 05/29/17 [place] [address] [place] [address] Primary Staff Physician Cardiology 12/18/22 Deck Mechanic Relationship Specialty Start Date End Date Diana Tate PA-C [address] [place] [address] PCP - General Family Medicine 05/29/17 [place] [address] [place] [address] Primary Staff Physician Cardiology 12/18/22 Deck Mechanic Relationship Specialty Start Date End Date Diana Tate PA-C [address] [place] [address] PCP - General Family Medicine 05/29/17 Ledy Ivy MD [address] [place] [address] Primary Staff Physician Cardiology 12/18/22 Deck Mechanic Relationship Specialty Start Date End Date Diana Tate PA-C [address] [place] [address] PCP - General Family Medicine 05/29/17 Ledy Ivy MD [address] [place] [address] Primary Staff Physician Cardiology 12/18/22 Deck Mechanic Relationship Specialty Start Date End Date Diana Tate PA-C [address] [place] [address] PCP - General Family Medicine 05/29/17 Ledy Ivy MD [address] [place] [address] Primary Staff Physician Cardiology 12/18/22 Deck Mechanic Relationship Specialty Start Date End Date Diana Tate PA-C [address] [place] [address] PCP - General Family Medicine 05/29/17 Ledy Ivy MD [address] [place] [address] Primary Staff Physician Cardiology 12/18/22 Deck Mechanic Relationship Specialty Start Date End Date Diana Tate PA-C [address] [place] [address] PCP - General Family Medicine 05/29/17 Ledy Ivy MD [address] [place] [address] Primary Staff Physician Cardiology 12/18/22 Deck Mechanic Relationship Specialty Start Date End Date Diana Tate PA-C [address] [place] [address] PCP - General Family Medicine 05/29/17 Ledy Ivy MD [address] [place] [address] Primary Staff Physician Cardiology 12/18/22 Deck Mechanic Relationship Specialty Start Date End Date Diana Tate PA-C [address] [place] [address] PCP - General Family Medicine 05/29/17 Ledy Ivy MD [address] [place] [address] Primary Staff Physician Cardiology 12/18/22 Deck Mechanic Relationship Specialty Start Date End Date Diana Tate PA-C [address] [place] [address] PCP - General Family Medicine 05/29/17 Ledy Ivy MD [address] [place] [address] Primary Staff Physician Cardiology 12/18/22 Deck Mechanic Relationship Specialty Start Date End Date Diana Tate PA-C [address] [place] [address] PCP - General Family Medicine 05/29/17 Ledy Ivy MD [address] [place] [address] Primary Staff Physician Cardiology 12/18/22 Deck Mechanic Relationship Specialty Start Date End Date Diana Tate [address] [place] [address] PCP - General 12/17/17 Deck Mechanic Relationship Specialty Start Date End Date Diana Tate PA-C [address] [place] [address] PCP - General Family Medicine 05/29/17 Ledy Ivy MD [address] [place] [address] Primary Staff Physician Cardiology 12/18/22 Deck Mechanic Relationship Specialty Start Date End Date Diana Tate [address] [place] [address] PCP - General 12/17/17 Jennifer Sutton APRN - CHIP FRIER [address] [place] [phone] Nurse Practitioner Nurse Practitioner 05/27/23 Deck Mechanic Relationship Specialty Start Date End Date Diana Tate [address] [place], [place] [address] PCP - General 12/17/17 Jennifer Sutton APRN - CHIP FRIER [address] [phone] Nurse Practitioner Nurse Practitioner 05/27/23 Deck Mechanic Relationship Specialty Start Date End Date Diana Tate PA-C [address] [place], [place] [address] PCP - General Family Medicine 05/29/17 Ledy Ivy MD [address] [place] [address] Primary Staff Physician Cardiology 12/18/22 Deck Mechanic Relationship Specialty Start Date End Date Diana Tate PA-C [address] [place], [place] [address] PCP - General Family Medicine 05/29/17 Ledy Ivy MD [address] [place] [address] Primary Staff Physician Cardiology 12/18/22 Deck Mechanic Relationship Specialty Start Date End Date Galindo Khan MD [address] [place] [phone] PCP - General 03/03/10 Scheduled Active and [...] BE BASED ON THE PRIMARY CLINICAL RECORDS. [employer] [facility]. provides no warranty or guarantee of the accuracy or completeness of information in this document.
[2023-11-15] MEDS: Furosemide 40 MG/4 ML Vial IV (09:32)
--- NOTE | 2023-11-15 10:00 | ECHOD_ITS ---
Reason For Study: CONGESTIVE HEART FAILURE Procedure This was a 2D Doppler, Color Flow transthoracic echocardiogram. Exam performed portable in patient room. Left Ventricle Normal LV size. Mild concentric left ventricular hypertrophy. The estimated ejection fraction is 65 %. Stage 2 diastolic dysfunction. Right Ventricle Normal RV size. Normal systolic function. Atria The left atrium is mildly enlarged. Normal right atrium. Mitral Valve There is Mild focal posterior mitral annular calcification. The mitral papillary muscle appears thickened and/or calcified. Trivial mitral valve insufficiency. Tricuspid Valve Normal tricuspid valve. Mild (1+) tricuspid valve insufficiency. Right ventricular systolic pressure estimated to be 23 mmHg. Aortic Valve Trisinus/trileaflet aortic valve. Mild focal aortic valve thickening. Mild focal aortic valve calcification. Mild aortic stenosis. Peak aortic valve gradient 22 mmHg. Mean aortic valve gradient 12 mmHg. Mild (1+) aortic valve insufficiency. Pulmonic Valve Normal pulmonic valve. Mild (1+) pulmonic valve insufficiency. Great Vessels Normal aortic root. Pericardium/Pleural No pericardial effusion. MMode/2D Measurements & Calculations LVIDd: 5.8 cm IVSd: 1.3 cm LVOT diam: 2.0 cm LVIDs: 3.0 cm LVPWd: 1.2 cm LVOT area: 3.1 cm2 RVDd: 3.7 cm FS: 48.0 % Ao root diam: 3.6 cm LAV(MOD-bp): 59.0 ml LVAd ap4: 29.0 cm2 LAV(MOD-bp) Indexed: 35.1 ml/m2 LVLd ap4: 7.7 cm LAV(MOD-sp2): 68.7 ml EDV(MOD-sp4): 92.4 ml LAV(MOD-sp4): 50.8 ml EDV(sp4-el): 92.5 ml LVAs ap4: 12.6 cm2 LVLs ap4: 5.9 cm ESV(MOD-sp4): 23.6 ml ESV(sp4-el): 22.7 ml EF(MOD-sp4): 74.4 % EF(sp4-el): 75.5 % LVAd ap2: 32.3 cm2 SV(MOD-sp4): 68.8 ml SV(MOD-sp2): 85.8 ml LVLd ap2: 7.9 cm EDV(MOD-sp2): 109.9 ml EDV(sp2-el): 111.7 ml LVAs ap2: 12.8 cm2 LVLs ap2: 6.0 cm ESV(MOD-sp2): 24.1 ml ESV(sp2-el): 23.3 ml EF(MOD-sp2): 78.1 % SV(sp4-el): 69.8 ml LA dimension(2D): 4.6 cm LA A4 area: 19.3 cm2 RA A4 area: 14.5 cm2 TAPSE: 2.3 cm Time Measurements MV dec time: 0.26 sec Doppler Measurements & Calculations MV E max salazar: 110.4 cm/sec Lat Peak E' Salazar: 7.6 cm/sec Med Peak E' Salazar: 6.2 cm/sec MV A max salazar: 84.4 cm/sec E/E' lat: 14.5 E/E' med: 17.9 MV E/A: 1.3 Ao V2 max: 236.4 cm/sec AI max salazar: 412.8 cm/sec MV dec slope: 429.7 cm/sec2 Ao max P.4 mmHg AI max P.1 mmHg Ao V2 mean: 158.8 cm/sec Ao mean P.6 mmHg AI dec slope: 168.4 cm/sec2 Ao V2 VTI: 55.7 cm AI P1/2t: 717.8 msec AV (velocity ratio): 0.67 JACOBY(I,D): 2.1 cm2 JACOBY(V,D): 2.0 cm2 LV V1 max: 150.5 cm/sec SV(LVOT): 116.8 ml PA V2 max: 134.4 cm/sec LV V1 max P.1 mmHg PA max PG (full): 3.4 mmHg LV V1 mean P.2 mmHg LV V1 mean: 108.3 cm/sec LV V1 VTI: 37.1 cm PI end-d salazar: 75.5 cm/sec TR max salazar: 224.4 cm/sec TR max P.1 mmHg ECHO/Echo Complete Interpretation Summary The estimated ejection fraction is 65 %. Stage 2 diastolic dysfunction. Mild concentric left ventricular hypertrophy. The left atrium is mildly enlarged. There is Mild focal posterior mitral annular calcification. Mild (1+) tricuspid valve insufficiency. Mild aortic stenosis. Mild (1+) aortic valve insufficiency. Mild (1+) pulmonic valve insufficiency. Ordering Physician: Oswaldo Capellan Performed By: Zayda Weathers RDCS
[2023-11-15 11:45] LABS: Ferritin 470 ng/mL (26-388); Iron 13 ug/dL (65-175); Iron Binding Capacity,Total 252 ug/dL (250-450); PERCENT IRON SATURATION 5.2 % (15.0-55.0)
[2023-11-15] MEDS: Pantoprazole Sodium 20 MG Tablet PO (12:25)
[2023-11-15] MEDS: Doxazosin 4 MG Tablet 8 MG PO (12:25)
[2023-11-15] MEDS: Atorvastatin Calcium 80 MG Tablet PO (12:25)
[2023-11-15] MEDS: Heparin Injection (Vial) 5,000 UNIT/ML VIAL 5000 UNIT SC (12:25)
[2023-11-15] MEDS: Gabapentin 600 MG Tablet PO (12:25)
[2023-11-15] MEDS: Smz/Tmp Ds Tablet 0.5 TABLET PO (12:25)
[2023-11-15] MEDS: 0.9% Saline Lock 10 ML Syringe IV (12:29)
[2023-11-15 13:38] LABS: Vitamin B12 262 pg/mL (211-911)
[2023-11-15 19:13] LABS: Procalcitonin 0.95 ng/mL (0.00-0.09)
[2023-11-15] MEDS: Acetaminophen 325 MG Tablet 650 MG PO (20:14)
[2023-11-16] VITALS (10 sets, daily range): BP systolic 98–149; BP diastolic 62–96; PULSE 52–85; RESP 16–20; TEMP 36.3–36.7; O2SAT 94–99
[2023-11-16] MEDS: Mycophenolate Mofetil 250 MG Capsule 500 MG PO ×3 (00:13→21:47)
[2023-11-16] MEDS: Heparin Injection (Vial) 5,000 UNIT/ML VIAL 5000 UNIT SC ×2 (00:13→10:45)
[2023-11-16] MEDS: Oseltamivir Phosphate 30 MG Capsule PO ×3 (00:14→21:47)
[2023-11-16] MEDS: Gabapentin 600 MG Tablet PO ×4 (00:14→21:47)
[2023-11-16 05:55] LABS: Hematocrit 30.6 % (40-54); Hemoglobin 9.6 g/dL (13.0-16.5); Mean Corp Hgb Conc 31.4 g/dL (32-36); Mean Corpuscular Hgb 28.9 pg (27.0-32.0); Mean Corpuscular Volume 92.2 fL (80-94); Mean Platelet Vol. 11.8 fl (6.2-12.0); POSITIVE COUNT YES; Platelet Count 85 K/mm3 (150-450); RBC Distribution Width CV 13.2 % (11.6-14.6); RBC Distribution Width SD 44.2 fl (35.1-43.9); Red Blood Count 3.32 M/mm3 (4.6-6.2); White Blood Count 12.4 K/mm3 (4.4-11.0)
[2023-11-16 06:04] LABS: ERROR RESULT FLAG YES
[2023-11-16] MEDS: TACROLIMUS 1 MG 2 MG PO (06:05)
[2023-11-16] MEDS: 0.9% Saline Lock 10 ML Syringe IV (06:08)
[2023-11-16 06:20] LABS: Anion Gap 5 (5-15); BUN 60 mg/dL (7-18); BUN/Creat Ratio 18.6 RATIO (10-20); Calcium,Total 9.1 mg/dL (8.5-10.1); Chloride 104 mmol/L (98-107); Creatinine, Serum 3.23 mg/dL (0.70-1.30); EST Glomerular Filtration Rate 21 mL/min (>60); Est Glom Filt Rate - Afr Amer 26 mL/min (>60); Estimated Creatinine Clearance 21.89 ml/min; Glucose 213 mg/dL (74-106); Sodium Level 133 mmol/L (136-145)
[2023-11-16] MEDS: Ipratropium/Albuterol Sulfate 3 ML AMPUL.NEB INHALATION ×5 (07:27→23:55)
--- NOTE | 2023-11-16 09:56 | EKG12_ITS ---
Test Reason : Blood Pressure : / mmHG Vent. Rate : 069 BPM Atrial Rate : 069 BPM P-R Int : 128 ms QRS Dur : 148 ms QT Int : 418 ms P-R-T Axes : 031 -54 -01 degrees QTc Int : 447 ms Normal sinus rhythm with sinus arrhythmia Right bundle branch block Left anterior fascicular block Bifascicular block Abnormal ECG Confirmed by Celso Byrd ([id number]), deputy editor in chief EDSON PEREIRA ([id number]) on 11/19/2023 9:37:52 AM Referred By: ALBERTA Confirmed By:Celso Byrd
[2023-11-16] MEDS: Sodium Polystyrene Sulfonate 15 GM/60 ML UDC 30 GM PO (10:28)
[2023-11-16] MEDS: Insulin Lispro 10 UNIT in Syringe 0 ML 6 UNIT IV (10:28)
[2023-11-16] MEDS: Dextrose 50%-Water 25 GM/50 ML DISP.SYRIN IV (10:37)
[2023-11-16] MEDS: Calcium Gluconate 1 GM/10 ML Vial IVP (10:37)
[2023-11-16] MEDS: Doxazosin 4 MG Tablet 8 MG PO (10:46)
[2023-11-16] MEDS: Atorvastatin Calcium 80 MG Tablet PO (10:52)
[2023-11-16] MEDS: Aspirin 81 MG TAB.CHEW PO (10:52)
[2023-11-16] MEDS: Pantoprazole Sodium 20 MG Tablet PO (10:53)
[2023-11-16] MEDS: Cefepime HCl 2 GM in 0.9% Normal Saline (100mL MB+) 100 ML IV (11:13)
[2023-11-16] MEDS: Vancomycin HCl 1,500 MG in 0.9% Normal Saline (500mL Bag) 500 ML 250 MG IV (12:13)
--- NOTE | 2023-11-16 12:25 | US_ITS ---
PROCEDURE: RENAL ULTRASOUND - COMPLETE REASON FOR EXAM: Male, 53 years old. History of left renal transplant. Evaluate hydronephrosis. TECHNIQUE: Ultrasound evaluation of the transplant was performed with real-time ultrasonography and static grayscale imaging. COMPARISON: None. FINDINGS: Transplant kidney the left pelvic lesion is seen measuring about 10.5 x 4.8 x 4 cm. The renal cortex measures 1.4 cm there is a cyst in the upper pole measuring about 1.5 cm and appears to be simple and no further follow-up exam is needed. 4 mm nonobstructing stone is seen in the midpole. There is mild hydronephrosis. The bladder is empty. US/Transplanted Kidney IMPRESSION: Left pelvic transplant kidney as described above. Mild hydronephrosis is seen. Electronically Signed: Luis E Morillo MD at 14:11 EST ,
--- NOTE | 2023-11-16 12:27 | PCM.RX.CS ---
Consult Antibiotic Management Pharmacy has been consulted to manage selected antibiotic: Vancomycin Type of Intervention Type of Consult: New start Labs Labs: Sodium 133 mmol/L (136-145) L 11/16/23 05:11 Potassium 6.0 mmol/L (3.5-5.1) H* 11/16/23 05:11 Chloride 104 mmol/L (98-107) 11/16/23 05:11 Carbon Dioxide 24.0 mmol/L (21.0-32.0) 11/16/23 05:11 Anion Gap 5 (5-15) 11/16/23 05:11 BUN 60 mg/dL (7-18) H 11/16/23 05:11 Creatinine 3.23 mg/dL (0.70-1.30) H 11/16/23 05:11 Est GFR (MDRD) Af Amer 26 mL/min (>60) L 11/16/23 05:11 Est GFR (MDRD) Non-Af 21 mL/min (>60) L 11/16/23 05:11 BUN/Creatinine Ratio 18.6 RATIO (10-20) 11/16/23 05:11 Glucose 213 mg/dL (74-106) H 11/16/23 05:11 Microbiology Microbiology: Microbiology 11/15/23 07:13 Mucosa - Nose SARS-CoV-2, Influenza & RSV (PCR) - Final Influenzae A Dosing Weight Weight used for dosin kg Estimated Creatinine Clearance Estimated Creatinine Clearance: 21.9ML/MIN Goal Trough Goal Trough: 15-20 mcg/mL Pharmacy Plan for Drug Dosing Pharmacy Plan for Drug Dosing: Give initial loading dose of 1500mg IV x1 today. The patient's SCr is 3.23 today (up from 2.33 yesterday) and CrCl is only slightly above 20 so will not schedule another dose at this time due to the patient's unstable renal function. Will order a vanc random level to be drawn tomorrow 24 hours after today's dose. That level will determine if a dose should be given tomorrow. Pharmacy Service will continue to monitor and adjust dosing as required. Follow-Up Labs Follow-Up Labs: Trough: Vancomycin (random) Date/Time Labs Ordered Labs to be done on [date and time ordered]: 11/17/23 12:00
--- NOTE | 2023-11-16 12:28 | PN.HOSP_ITS ---
Reason for Visit Reason for Visit: Diagnoses Disorder involving the immune mechanism, unspecified (11/15/23) Heart failure, unspecified (11/15/23) Influenza due to other identified influenza virus with other respiratory keerthi festations (11/15/23) Chronic obstructive pulmonary disease with (acute) exacerbation (11/15/23) Hypoxemia (11/15/23) Subjective Subjective Patient developed mildly worsening fevers and chills overnight. Seen at bedside this morning. He appeared more flushed and diaphoretic this morning than yesterday but otherwise was laying back comfortably in bed, no acute distress. Patient generally states he feels fatigued and slightly worse than yesterday. Also notes that he has a history of urinary retention requiring straight cath at times, and he has had minimal urine output since admission. Does note that he has not eaten or drank very much over the past few days. Otherwise denies any acute pain or discomfort. No other acute concerns. Objective Data Objective Data Vital Signs: Vital Signs Temp Pulse Resp BP Pulse Ox O2 Del Method O2 Flow Rate 98 F 61 16 149/83 H 98 Nasal Cannula 3 11/16/23 10:25 11/16/23 10:25 11/16/23 10:25 11/16/23 10:25 11/16/23 10:25 11/16/23 10:25 11/16/23 10:25 Oxygen Flow Rate (L/min) 3 Oxygen Delivery Method Nasal Cannula Weight: 62 kg Body Mass Index (BMI) 23.4 Intake & Output: Intake and Output for Last 24 Hours 11/14/23 11/15/23 11/16/23 23:59 23:59 23:59 Intake Total 480 / 1180 1300 / 1300 Output Total 250 / 250 Balance 480 / 1180 1050 / 1050 Lab / Micro Data 11/16/23 05:11 11/16/23 05:11 Labs: Laboratory Results - last 24 hr 11/15/23 11:37: Vitamin B12 262 11/15/23 18:38: Procalcitonin 0.95 H 11/16/23 05:11: WBC 12.4 H, RBC 3.32 L, Hgb 9.6 L, Hct 30.6 L, MCV 92.2, MCH 28.9, MCHC 31.4 L, RDW Std Deviation 44.2 H, RDW Coeff of Adamaris 13.2, Plt Count 85 L, MPV 11.8, Sodium 133 L, Potassium 6.0 H*, Chloride 104, Carbon Dioxide 24.0, Anion Gap 5, BUN 60 H, Creatinine 3.23 H, Estim Creat Clear Calc 21.89, Est GFR (MDRD) Af Amer 26 L, Est GFR (MDRD) Non-Af 21 L, BUN/Creatinine Ratio 18.6, Glucose 213 H, Calcium 9.1 Micro: Microbiology 11/15/23 07:13 Mucosa - Nose SARS-CoV-2, Influenza & RSV (PCR) - Final Influenzae A Radiography Diagnostic Testing: Radiology Impression Chest X-Ray 11/15/23 07:25 IMPRESSION: Diffuse bronchial wall thickening and accompanying streaky airspace opacities in the mid and lower lungs bilaterally compatible with bronchitis / atypical infection. Electronically Signed: Joshua Dutton MD at 8:07 EST Reading Location ID and State: [address] [place] [address] Tel , Service support , Echocardiogram 11/15/23 10:00 Interpretation Summary The estimated ejection fraction is 65 %. Stage 2 diastolic dysfunction. Mild concentric left ventricular hypertrophy. The left atrium is mildly enlarged. There is Mild focal posterior mitral annular calcification. Mild (1+) tricuspid valve insufficiency. Mild aortic stenosis. Mild (1+) aortic valve insufficiency. Mild (1+) pulmonic valve insufficiency. Ordering Physician: Oswaldo Capellan Performed By: Zayda Weathers RDCS Physical Exam Const alert, oriented x3, no apparent distress and average body habitus Constitutional Narrative: Pleasant middle-aged male, fatigued appearing, more flushed and diaphoretic appearing today, otherwise laying fairly comfortably in bed, conversing normally, no acute distress. General Appearance: cooperative and comfortable HEENT normocephalic, head/scalp atraumatic, hearing grossly normal bilaterally and nasal mucous membranes and turbinates normal HEENT Narrative: Dry mucous membranes. Eyes PERRL, EOMs intact bilaterally and conjunctivae normal Neck full ROM, no lymphadenopathy and supple Lymph Lymphatic: no lymphadenopathy noted Chest inspection of chest normal Resp Resp Narrative: Breathing comfortably on 3 L nasal cannula. No upper airway wheezing noted. No crackles noted. Mildly decreased air movement in bilateral lung bases but otherwise fairly good air movement in upper lung pierson. Cardio regular rate, regular rhythm, no murmurs and peripheral pulses 2+ throughout GI normal to inspection, nondistended, normoactive bowel sounds, soft to palpation, non-tender and non-distended Back/Spine normal ROM Extremity normal to inspection, full ROM and no pedal edema Skin no rashes or lesions noted Neuro moves all extremities and no focal motor deficits Speech: speech normal Psych mental status grossly normal Assessment & Plan Assessment/Plan (1) Hypoxia: (2) Influenza A: (3) Immunosuppressed status: (4) COPD exacerbation: (5) CHF exacerbation: PLAN: Plan Patient is a 53-year-old male who presented to [facility] ED on 11/15/2023 with shortness of breath, fever/chills and myalgias. 1. Influenza A infection, mild COPD exacerbation with acute hypoxia, concern for CHF exacerbation, suspected superimposed bacterial infection Influenza A positive on admit. Chest x-ray showed diffuse bronchial wall thickening with streaky airspace opacities in mid and lower lungs bilaterally. Not on home O2, requiring up to 5 L nasal cannula in ED due to hypoxia. Low- grade fever with mild tachypnea on admit, otherwise hemodynamically stable. WBC count normal. TTE 11/15 showed EF 65%, stage II diastolic dysfunction, mild concentric LV hypertrophy, mildly enlarged LA, no significant valvular disease. BNP 594, mildly worsened from previous. Procalcitonin 0.95, WBC count worsened on hospital day 2. ? Continue treatment with IV steroids, scheduled DuoNebs, Tamiflu. Given worsening ORLANDO on 11/16 as noted below and concern that patient is dry, will discontinue IV Lasix and give 1 L of IV fluids this afternoon. Initiated patient on vancomycin and cefepime on 11/16 for broad coverage. Follow-up sputum culture and blood cultures. 2. ORLANDO on CKD stage IV, history of renal transplant x 2 last in 2009 ? Creatinine 2.33 on admit, baseline creatinine unclear, last creatinine was 2.30 back in 01/2023. Creatinine worsened to 3.23 on hospital day 2 after dose of IV Lasix on 11/15, have concern that patient is dry. Suspect home Bactrim may be contributing to worsening creatinine as well, discontinued on 11/16. Will give 1 L of IV normal saline for 4 hours this afternoon. Continue home mycophenolate mofetil and tacrolimus. Nephrology consulted. 3. Hyperkalemia ? Potassium 5.4 on admit, worsened to 6.0 on 11/16. Presumed secondary to OR[place]O and home Bactrim, giving IV fluids and discontinued Bactrim as noted above. EKG on 11/16 with no acute changes. Treated with insulin and dextrose on 11/16. Transitioned patient to renal diet. Neurology consulted as above. 4. Urinary retention, history of BPH with LUTS ? Bladder scan on 11/16 with > 600cc urine, however patient was able to urinate at that time and post residual volume was low. Will monitor bladder scans every 8 hours for now. Renal/bladder ultrasound ordered. Continue home doxazosin. 5. History of CAD with remote CABG, hypertension, hyperlipidemia ? Normotensive to slightly hypertensive on admission. Continue home aspirin and statin. Holding home amlodipine and carvedilol for now, restart when able. Chronic medical conditions: ? GERD: Continue home PPI. ? Neuropathy: Continue home gabapentin. ? Chronic anemia: Hemoglobin 9.6 on admit, baseline hemoglobin appears to be around 9-11. Stable. DVT prophylaxis: Heparin subcu CODE STATUS: Full code, verified Expected disposition: Home, TBD Total clinical time spent by myself addressing the patient's medical issues, reviewing all the data, and collaborating with patient's care team: 35 minutes. Charges/Coding Visit Charges Inpatient E&M: 07235 Subs Hosp L2
--- NOTE | 2023-11-16 13:50 | CASEMGMT ---
JENNIFER COLMENARES Assessment: Face to Face with pt for initial transition planning/care coordination assessment. RN DARRIAN introduced self and role at [facility], pt voices understanding and consents to assessment. Pt is A&O x4 and answers all questions appropriately at this time. Pt lying in bed with oxygen on in no distress. Care providers, pharmacy, and demographics verified/updated. Admitting Dx:influenza A infection, COPD exac PCP:Herman STEEN Specialists:Denies Preferred Pharmacy:[facility] Insurance[place] Prescription Benefit: yes LNOK:Stephany Koch, ; Jenny Jackson, sister Living Arrangements: Pt lives with in a single story home with 2 steps to enter. Pt reports being I in ADL's and denies concerns at home. Transportation: Pt drives self and denies concerns with transportation. DME:nebulizer HHC/SNF:Denies hx of Pt states no concerns with going home at time of dc. Provided pt with a local in network list of DME providers, pt chose [employer] should he need oxygen. Pt states no further concerns/needs. CM to follow. Advised pt to ask CM if any further question/concerns/needs arise, voices understanding. Pt Goal:Home Plan:Home, follow oxygen
--- NOTE | 2023-11-16 14:40 | CON.PCM.RE_ITS ---
Assessment & Plan Assessment/Plan (1) Acute kidney injury: PLAN: I suspect patient has some prerenal azotemia, that should improve with h ydration As he has hyperkalemia, I advised him to limit his dietary potassium intake May consider holding CellCept in view of acute infection (2) Chronic kidney disease: QUALIFIERS: Chronic kidney disease stage: stage 4 (severe) Qualified Code(s): N18.4 - Chronic kidney disease, stage 4 (severe) HPI Consult Data Date of Consult: 11/16/23 HPI Narrative Reason for Consultation: Status post kidney transplant, acute kidney injury HPI Narrative: MARIAN BARROSO, is a 53 M who presents influenza A. 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 He has been on peritoneal dialysis for about 3 years and then switched to hemodialysis and eventually has received kidney transplant back in 1993. Left kidney eventually failed and in 2009 he has received another kidney transplant at [facility]. He is followed by [facility] boilermaker's assistant pretty closely. Last appointment with his boilermaker's assistant was just about a week ago. According to patient and his chart he has baseline CKD 4 with a baseline creatinine of 2.4-2.5. He was admitted yesterday with creatinine around his baseline, but dates up to 3.23 and his potassium at 6. He is antirejection regimen includes tacrolimus, CellCept, as well as small dose of prednisone. No urinalysis available. Kidney ultrasound showed mild hydronephrosis. 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 Neurogenic bladder VIC (obstructive sleep apnea) Pulmonary embolism PVD (peripheral vascular disease) Home Medications aspirin 81 mg chewable tablet 81 mg PO DAILY health maintenance 02/21/14 [History Last Taken 07/21/19] doxazosin 8 mg tablet (Cardura) 8 mg PO DAILY BLADDER 02/21/14 [History Last Taken 07/21/19] mycophenolate mofetil 500 mg tablet 500 mg PO BID ANTI-REJECTION 02/21/14 [History Last Taken 07/21/19] omeprazole 20 mg capsule,delayed release 20 mg PO DAILY ACID REFLUX 02/21/14 [History Last Taken 07/21/19] magnesium oxide 400 mg (241.3 mg magnesium) tablet (MgO) 400 mg PO BID SUPPLEMENT 12/25/17 [History Last Taken 07/21/19] atorvastatin 80 mg tablet 80 mg PO DAILY cholesterol 12/30/17 [History Last Taken 07/21/19] carvedilol 25 mg tablet 25 mg PO BID blood pressure 12/30/17 [History Last Taken 07/21/19] albuterol sulfate 90 mcg/actuation aerosol inhaler 1 - 2 puff inhalation Q4H PRN PRN Shortness Of Breath ##1 07/24/19 [Rx Last Taken Unknown] albuterol sulfate 2.5 mg/3 mL (0.083 %) solution for nebulization 2.5 mg inhal ation Q4H PRN shortness of breath or wheezing 10/03/21 [History Last Taken Unknown] prednisone 5 mg tablet 5 mg PO DAILY 10/04/21 [History Last Taken Unknown] sulfamethoxazole 400 mg-trimethoprim 80 mg tablet (Bactrim) 1 tab PO DAILY 10/04/21 [History Last Taken Unknown] tacrolimus 0.5 mg capsule,extended release 24 hr (Astagraf XL) 2 mg PO DAILY 10/04/21 [History Last Taken Unknown] albuterol sulfate 2.5 mg/3 mL (0.083 %) solution for nebulization 2.5 mg (3 mL) inhalation Q4H PRN PRN shortness of breath or wheezing #25 vials 07/27/22 [Rx Last Taken Unknown] acetaminophen 500 mg tablet 1,000 mg PO Q8 PRN fever or pain 11/15/23 [History Last Taken Unknown] amlodipine 5 mg tablet (Norvasc) 5 mg PO DAILY 11/15/23 [History Last Taken Unknown] Allergy/AdvReac Type Severity Reaction Status Date / Time propoxyphene napsylate Allergy Hives Verified 11/15/23 06:36 [From Darvocet-N] venom-honey bee Allergy Hives Verified 11/15/23 06:36 [bee venom (honey bee)] Family History Father Arthritis Cancer Lung cancer, 1990 CAD (coronary artery disease) Mother CAD (coronary artery disease) Diet 2012 Surgical History History of lung biopsy (~2007) History of renal transplant Renal transplant recipient S/P pericardial window creation (~1991) Social History Smoking Status: Former smoker pack-years: 19 Tobacco: How many years used: 15 ROS Constitutional Constitutional: Reports chills, fever(s), malaise and weakness Eyes Eyes: Denies blindness, blurry vision, change in vision, discongugate gaze, lisa ble vision, dry eyes or loss of vision ENT HEENT: Reports dry mouth Cardiovascular Cardiovascular: Denies chest pain, claudication, diaphoresis, dyspnea on exertion, edema, irregular heart rhythm, leg edema, orthopnea, palpitations or syncope Respiratory/Chest Respiratory/Chest: Reports dry cough, productive cough, shortness of breath at rest and wheezing Gastrointestinal Gastrointestinal: Denies abdominal pain, anorexia, diarrhea, dry heaves, hematemesis, hematochezia, melena, nausea, rectal bleeding, vomiting or weight changes Genitourinary Genitourinary: Denies change in urinary stream, difficulty urinating, dribbling, dysuria, flank pain, hematuria, nocturia, oliguria, post void dribbling, urinary frequency, urinary hesitancy, urinary incontinence or urinary urgency Musculoskeletal Musculoskeletal: Denies abnormal gait, arthralgias, joint stiffness, joint swelling, muscle cramps or myalgias Integumentary Integumentary: Denies dry skin, erythema, jaundice, lesions, pruritus, rash or skin ulcer Neurologic Neurologic: Denies abnormal gait, burning sensations, confusion, focal weakness, frequent falls, headache(s), numbness, restless legs, seizures, syncope, tremor(s) or weakness Psychiatric Psychiatric: Denies anxiety, confusion, depression or hallucinations Endocrine Endocrinology: Denies cold intolerance, fatigue, heat intolerance, polydipsia or polyuria Physical Exam Const alert, oriented x3 and no apparent distress General Appearance: well developed Orientation / Consciousness: oriented to person, oriented to place and oriented to time HEENT normocephalic Head and Scalp: atraumatic Eyes PERRL Neck no lymphadenopathy Resp no use of accessory muscles Auscultation: wheezes and diminished lung sounds Cardio regular rate GI non-tender Auscultation: normoactive bowel sounds Neuro CN's II-XII intact bilaterally Sensorium / Orientation: awake and alert Psych cooperative Lab / Micro Data Attestation: I reviewed the patient's lab results. 11/16/23 05:11 11/16/23 05:11 Labs: Laboratory Results - last 24 hr 11/15/23 18:38: Procalcitonin 0.95 H 11/16/23 05:11: WBC 12.4 H, RBC 3.32 L, Hgb 9.6 L, Hct 30.6 L, MCV 92.2, MCH 28.9, MCHC 31.4 L, RDW Std Deviation 44.2 H, RDW Coeff of Adamaris 13.2, Plt Count 85 L, MPV 11.8, Sodium 133 L, Potassium 6.0 H*, Chloride 104, Carbon Dioxide 24.0, Anion Gap 5, BUN 60 H, Creatinine 3.23 H, Estim Creat Clear Calc 21.89, Est GFR (MDRD) Af Amer 26 L, Est GFR (MDRD) Non-Af 21 L, BUN/Creatinine Ratio 18.6, Glucose 213 H, Calcium 9.1 Imaging Radiology Impression Chest X-Ray 11/15/23 07:25 IMPRESSION: Diffuse bronchial wall thickening and accompanying streaky airspace opacities in the mid and lower lungs bilaterally compatible with bronchitis / atypical infection. Electronically Signed: Marian Dutton MD at 8:07 EST Reading Location ID and State: [address] [place] [address] Tel , Service support , Echocardiogram 11/15/23 10:00 Interpretation Summary The estimated ejection fraction is 65 %. Stage 2 diastolic dysfunction. Mild concentric left ventricular hypertrophy. The left atrium is mildly enlarged. There is Mild focal posterior mitral annular calcification. Mild (1+) tricuspid valve insufficiency. Mild aortic stenosis. Mild (1+) aortic valve insufficiency. Mild (1+) pulmonic valve insufficiency. Ordering Physician: Oswaldo Capellan Performed By: Zayda Weathers RDCS Renal Ultrasound 11/16/23 12:25 IMPRESSION: Left pelvic transplant kidney as described above. Mild hydronephrosis is seen. Electronically Signed: Luis E Morillo MD at 14:11 EST ,
[2023-11-16 14:48] LABS: Bedside Glucose 308 mg/dL (74-106)
[2023-11-16] MEDS: 0.9% Normal Saline (1000mL) 1,000 ML 250 ML IV ×2 (15:13→18:42)
[2023-11-16] MEDS: Acetaminophen 325 MG Tablet 650 MG PO (21:47)
[2023-11-16] MEDS: MELATONIN 3 MG TABLET PO (23:52)
[2023-11-17] VITALS (13 sets, daily range): BP systolic 96–162; BP diastolic 60–82; PULSE 72–88; RESP 13–20; TEMP 36.3–36.8; O2SAT 92–99
--- NOTE | 2023-11-17 00:02 | EKG12_ITS ---
Test Reason : CP Blood Pressure : / mmHG Vent. Rate : 070 BPM Atrial Rate : 070 BPM P-R Int : 142 ms QRS Dur : 146 ms QT Int : 414 ms P-R-T Axes : 064 -57 -16 degrees QTc Int : 447 ms Normal sinus rhythm Right bundle branch block Left anterior fascicular block Bifascicular block Nonspecific T wave changes Abnormal ECG Confirmed by Celso Byrd ([id number]), assistant editor EDSON PEREIRA ([id number]) on 11/19/2023 9:38:32 AM Referred By: HARVEY Confirmed By:Celso Byrd
[2023-11-17] MEDS: oxyCODONE 5 MG Tablet PO ×2 (01:03→11:44)
[2023-11-17 01:04] LABS: Bacteria 0 SEEN /hpf (None Seen); Mucous, Urine 0 SEEN /hpf (<or=2+); Red Blood Cells-Urine 0 SEEN /hpf (0-5); Squamous Epithelial Cells - UA 0 SEEN /hpf (0-5); White Blood Cells 0 SEEN /hpf (0-5)
[2023-11-17 01:15] LABS: Color, Urine Yellow (Yellow); Glucose, Dipstick Normal (Normal); Ketone-Dipstick 15 mg/dl (Negative); Leukocyte Esterase-Dipstick Negative /ul (Negative); Nitrite-Dipstick Negative (Negative); Occult Blood-Urine Negative /ul (Negative); Protein-Dipstick 15 mg/dl (Negative); Urine Bilirubin Dipstick Negative (Negative); Urine Clarity Clear (Clear); Urine Urobilinogen Normal (Normal)
[2023-11-17 01:23] LABS: Urine Sodium 21 mmol/L (Not Establ.)
[2023-11-17] MEDS: TACROLIMUS 1 MG 2 MG PO (06:09)
[2023-11-17] MEDS: Gabapentin 600 MG Tablet PO (06:09)
[2023-11-17] MEDS: Ipratropium/Albuterol Sulfate 3 ML AMPUL.NEB INHALATION ×4 (07:27→20:17)
[2023-11-17 08:43] LABS: Hematocrit 28.9 % (40-54); Hemoglobin 9.2 g/dL (13.0-16.5); Mean Corp Hgb Conc 31.8 g/dL (32-36); Mean Corpuscular Volume 91.2 fL (80-94); POSITIVE COUNT YES; Platelet Count 85 K/mm3 (150-450); RBC Distribution Width CV 13.1 % (11.6-14.6); Red Blood Count 3.17 M/mm3 (4.6-6.2)
[2023-11-17 09:01] LABS: Anion Gap 11 (5-15); BUN 63 mg/dL (7-18); BUN/Creat Ratio 22.7 RATIO (10-20); Calcium,Total 8.6 mg/dL (8.5-10.1); Chloride 104 mmol/L (98-107); Creatinine, Serum 2.78 mg/dL (0.70-1.30); EST Glomerular Filtration Rate 25 mL/min (>60); Est Glom Filt Rate - Afr Amer 31 mL/min (>60); Estimated Creatinine Clearance 25.44 ml/min; Glucose 168 mg/dL (74-106); Potassium 4.6 mmol/L (3.5-5.1); Sodium Level 138 mmol/L (136-145)
[2023-11-17] MEDS: Doxazosin 4 MG Tablet 8 MG PO (09:08)
[2023-11-17] MEDS: Mycophenolate Mofetil 250 MG Capsule 500 MG PO (09:09)
[2023-11-17] MEDS: Pantoprazole Sodium 20 MG Tablet PO (09:09)
[2023-11-17] MEDS: Aspirin 81 MG TAB.CHEW PO (09:09)
[2023-11-17] MEDS: Oseltamivir Phosphate 30 MG Capsule PO ×2 (09:10→21:20)
[2023-11-17] MEDS: Atorvastatin Calcium 80 MG Tablet PO (09:10)
[2023-11-17] MEDS: Cefepime HCl 2 GM in 0.9% Normal Saline (100mL MB+) 100 ML IV (09:11)
--- NOTE | 2023-11-17 09:27 | EKG12_ITS ---
Test Reason : Blood Pressure : / mmHG Vent. Rate : 058 BPM Atrial Rate : 058 BPM P-R Int : 124 ms QRS Dur : 144 ms QT Int : 434 ms P-R-T Axes : 054 -61 -41 degrees QTc Int : 426 ms Sinus bradycardia Right bundle branch block Left anterior fascicular block Bifascicular block Nonspecific T wave abnormality Abnormal ECG When compared with ECG of 15-NOV-2023 06:38, MANUAL COMPARISON REQUIRED, DATA IS UNCONFIRMED Confirmed by Celso Byrd ([id number]), video editor EDSON PEREIRA ([id number]) on 11/19/2023 9:38:56 AM Referred By: ALBERTA Confirmed By:Celso Byrd
[2023-11-17] MEDS: LORazepam 2 MG/ML Syringe 0.5 MG IV (11:43)
[2023-11-17] MEDS: Acetaminophen 325 MG Tablet 650 MG PO (11:44)
[2023-11-17] MEDS: 0.9% Saline Lock 10 ML Syringe IV (11:44)
[2023-11-17 12:15] LABS: Vancomycin, Random Level 16.5 ug/mL (0.0-15.0)
[2023-11-17] MEDS: HYDROmorphone 0.5 MG/0.5 ML SYRINGE IV (12:52)
[2023-11-17 13:43] LABS: Troponin-I HS 220 pg/mL (3.0-78.0)
[2023-11-17] MEDS: 0.9% Normal Saline (1000mL) 1,000 ML 250 ML IV (15:02)
[2023-11-17] MEDS: Vancomycin IV 1,000 MG/200 ML BAG 200 MG IV (15:02)
[2023-11-17] MEDS: proCHLORPERazine 10 MG/2 ML Vial 5 MG IV (15:02)
[2023-11-17] MEDS: DiphenhydrAMINE 50 MG/ML Syringe 25 MG IV (15:03)
[2023-11-17] MEDS: Nitroglycerin (INPATIENT USE) 0.4 MG TAB.SUBL 0.400000000000000022 MG SL (15:06)
--- NOTE | 2023-11-17 15:32 | PCM.RX.CS ---
Consult Antibiotic Management Pharmacy has been consulted to manage selected antibiotic: Vancomycin Type of Intervention Type of Consult: Follow-up Prior Doses of Antibiotics Prior Doses of Antibiotics Received/Current Regimen: received vanc 1500mg IV x1 yesterday at 12:13 Labs Labs: Sodium 138 mmol/L (136-145) 11/17/23 08:19 Potassium 4.6 mmol/L (3.5-5.1) 11/17/23 08:19 Chloride 104 mmol/L (98-107) 11/17/23 08:19 Carbon Dioxide 23.0 mmol/L (21.0-32.0) 11/17/23 08:19 Anion Gap 11 (5-15) 11/17/23 08:19 BUN 63 mg/dL (7-18) H 11/17/23 08:19 Creatinine 2.78 mg/dL (0.70-1.30) H 11/17/23 08:19 Est GFR (MDRD) Af Amer 31 mL/min (>60) L 11/17/23 08:19 Est GFR (MDRD) Non-Af 25 mL/min (>60) L 11/17/23 08:19 BUN/Creatinine Ratio 22.7 RATIO (10-20) H 11/17/23 08:19 Glucose 168 mg/dL (74-106) H 11/17/23 08:19 Random Vancomycin 16.5 ug/mL (0.0-15.0) H 11/17/23 11:28 Microbiology Microbiology: Microbiology 11/15/23 07:13 Mucosa - Nose SARS-CoV-2, Influenza & RSV (PCR) - Final Influenzae A Dosing Weight Weight used for dosin kg Estimated Creatinine Clearance Estimated Creatinine Clearance: 25.4ml/min Goal Trough Goal Trough: 15-20 mcg/mL Pharmacy Plan for Drug Dosing Pharmacy Plan for Drug Dosing: The vanc random level drawn at 11:28 today (approx 23 hours after the previous dose) was 16.5. This is within goal so have already ordered another 1000mg (15mg/kg) IV x1 dose to be given today. Due to the patient's still unstable renal function and history of transplant, will continue to base further doses off another vancomycin random level tomorrow, which will be ordered for 24 hours after the 1000mg dose is given today. Pharmacy Service will continue to monitor and adjust dosing as required. Follow-Up Labs Follow-Up Labs: Trough: Vancomycin (random) Date/Time Labs Ordered Labs to be done on [date and time ordered]: 11/18/23 15:00
--- NOTE | 2023-11-17 15:46 | PCM.PN.HOSP ---
Reason for Visit Reason for Visit: Diagnoses Disorder involving the immune mechanism, unspecified (11/15/23) Heart failure, unspecified (11/15/23) Influenza due to other identified influenza virus with other respiratory manifestations (11/15/23) Chronic obstructive pulmonary disease with (acute) exacerbation (11/15/23) Acute kidney failure, unspecified (11/15/23) Chronic kidney disease, stage 4 (severe) (11/15/23) Hypoxemia (11/15/23) Subjective Subjective Patient noted to have episodes of intermittent chest pain overnight that were fairly central in origin, with some radiation to his right lower chest. States these seem to come up on their own without warning and resolved on their own within a few minutes. He states he walked over to the window a few times to help alleviate the chest pain with his movements. He otherwise reports feeling more flushed and somewhat diaphoretic this morning than yesterday. Denies any significant shortness of breath at rest. States he felt a little bit better after IV fluids yesterday. He also was able to urinate on his own a few times yesterday evening and this morning, denies any suprapubic pain or discomfort. No other acute concerns this time. Objective Data Objective Data Vital Signs: Vital Signs Temp Pulse Resp BP Pulse Ox O2 Del Method O2 Flow Rate 97.8 F 78 16 96/67 92 Room Air 2 11/17/23 15:05 11/17/23 15:06 11/17/23 15:05 11/17/23 15:17 11/17/23 15:17 11/17/23 15:17 11/17/23 09:03 Oxygen Flow Rate (L/min) 2 Oxygen Delivery Method Room Air Weight: 62 kg Body Mass Index (BMI) 23.4 Intake & Output: Intake and Output for Last 24 Hours 11/15/23 11/16/23 11/17/23 23:59 23:59 23:59 Intake Total 480 / 1180 3755.00 / 3955.00 540 / 540 Output Total 900 / 1000 100 / 100 Balance 480 / 1180 2855.00 / 2955.00 440 / 440 Lab / Micro Data 11/17/23 08:19 11/17/23 08:19 Labs: Laboratory Results - last 24 hr 11/17/23 00:54: Urine Color Yellow, Urine Clarity Clear, Urine pH 5.0, Ur Specific [place] 1.020, Urine Protein 15 H, Urine Glucose (UA) Normal, Urine Ketones 15 H, Urine Occult Blood Negative, Urine Nitrite Negative, Urine Bilirubin Negative, Urine Urobilinogen Normal, Ur Leukocyte Esterase Negative, Urine RBC 0 SEEN, Urine WBC 0 SEEN, Ur Squamous Epith Cells 0 SEEN, Urine Bacteria 0 SEEN, Urine Mucus 0 SEEN, Ur Random Sodium 21, Urine Creatinine 108.00 11/17/23 08:19: WBC 10.0, RBC 3.17 L, Hgb 9.2 L, Hct 28.9 L, MCV 91.2, MCH 29.0, MCHC 31.8 L, RDW Std Deviation 43.0, RDW Coeff of Adamaris 13.1, Plt Count 85 L, MPV 12.0, Sodium 138, Potassium 4.6, Chloride 104, Carbon Dioxide 23.0, Anion Gap 11, BUN 63 H, Creatinine 2.78 H, Estim Creat Clear Calc 25.44, Est GFR (MDRD) Af Amer 31 L, Est GFR (MDRD) Non-Af 25 L, BUN/Creatinine Ratio 22.7 H, Glucose 168 H, Calcium 8.6 11/17/23 11:28: Random Vancomycin 16.5 H 11/17/23 12:57: Troponin I High Sens 220 H* Micro: Microbiology 11/15/23 07:13 Mucosa - Nose SARS-CoV-2, Influenza & RSV (PCR) - Final Influenzae A Physical Exam Const alert, oriented x3, no apparent distress and average body habitus Constitutional Narrative: Pleasant middle-aged male, fatigued appearing, more flushed and diaphoretic appearing again today, otherwise laying fairly comfortably in bed, conversing normally, no acute distress. General Appearance: cooperative and comfortable HEENT normocephalic, head/scalp atraumatic, hearing grossly normal bilaterally and nasal mucous membranes and turbinates normal HEENT Narrative: Dry mucous membranes. Eyes PERRL, EOMs intact bilaterally and conjunctivae normal Neck full ROM, no lymphadenopathy and supple Lymph Lymphatic: no lymphadenopathy noted Chest inspection of chest normal Resp Resp Narrative: Breathing comfortably on 2 L nasal cannula. No upper airway wheezing noted. No crackles noted. Mildly decreased air movement in bilateral lung bases but otherwise fairly good air movement in upper lung pierson. Cardio regular rate, regular rhythm, no murmurs and peripheral pulses 2+ throughout GI normal to inspection, nondistended, normoactive bowel sounds, soft to palpation, non-tender and non-distended Back/Spine normal ROM Extremity normal to inspection, full ROM and no pedal edema Skin no rashes or lesions noted Neuro moves all extremities and no focal motor deficits Speech: speech normal Psych mental status grossly normal Assessment & Plan Assessment/Plan (1) Hypoxia: (2) Influenza A: (3) Immunosuppressed status: (4) COPD exacerbation: (5) CHF exacerbation: PLAN: Plan Patient is a 53-year-old male who presented to [facility] ED on 11/15/2023 with shortness of breath, fever/chills and myalgias. 1. Influenza A infection, mild COPD exacerbation with acute hypoxia, concern for CHF exacerbation, suspected superimposed bacterial infection Influenza A positive on admit. Chest x-ray showed diffuse bronchial wall thickening with streaky airspace opacities in mid and lower lungs bilaterally. Not on home O2, requiring up to 5 L nasal cannula in ED due to hypoxia. Low-grade fever with mild tachypnea on admit, otherwise hemodynamically stable. WBC count normal. TTE 11/15 showed EF 65%, stage II diastolic dysfunction, mild concentric LV hypertrophy, mildly enlarged LA, no significant valvular disease. BNP 594, mildly worsened from previous. Procalcitonin 0.95, WBC count worsened on hospital day 2. ? Continue treatment with IV steroids, scheduled DuoNebs, Tamiflu. Blood cultures 11/15 with no growth to date, continue vancomycin and cefepime for broad coverage for now. Giving another 1 L IV fluids today given ongoing [place] and patient being dry appearing on exam. WBC count fairly stable, continue to monitor CBC daily. 2. [place] on CKD stage IV, improving; history of renal transplant x 2 last in 2009 ? Nephrology following. Creatinine 2.33 on admit, baseline creatinine unclear, last creatinine was 2.30 back in 01/2023. Creatinine worsened to 3.23 on hospital day 2 after dose of IV Lasix on 11/15. S/p 1 L IV fluids on 11/16 with improvement in creatinine to 2.78 on 11/17. Continues to appear dry, will give another 1 L IV fluids today. Continue to monitor daily BMP and urine output. Will hold home CellCept in setting of acute infection, continue home tacrolimus. 3. Hyperkalemia, improved ? Potassium 5.4 on admit, worsened to 6.0 on 11/16. Presumed secondary to [place] and home Bactrim, giving IV fluids and discontinued Bactrim as noted above. EKG on 11/16 with no acute changes. Treated with insulin and dextrose on 11/16. Repeat potassium 4.6 on 11/17. Continue to monitor BP daily. Continue renal diet for now. 4. Urinary retention, history of BPH with LUTS ? Bladder scan on 11/16 with > 600cc urine, however patient was able to urinate at that time and post residual volume was low. Will monitor bladder scans every 8 hours for now. Renal/bladder ultrasound 11/16 showed only mild hydronephrosis with empty bladder. Continue home doxazosin. 5. History of CAD with remote CABG, hypertension, hyperlipidemia ? Normotensive to slightly hypertensive on admission. Continue home aspirin and statin. Holding home amlodipine and carvedilol for now, restart when able. 6. Intermittent runs of V. tach with chest pain, elevated troponins with negative delta ? Noted on telemetry on 11/17 to have intermittent runs of 8-15 beats of apparent V. tach. Unable to capture on EKG to this point. EKGs have shown normal sinus rhythm with bifascicular block, stable from previous. Echo on admit with normal EF, stage II diastolic dysfunction as noted above. Electrolytes normal. Troponins on 11/17 of 220, repeat 216. Continue to monitor clinically. Chronic medical conditions: ? GERD: Continue home PPI. ? Neuropathy: Continue home gabapentin. ? Chronic anemia: Hemoglobin 9.6 on admit, baseline hemoglobin appears to be around 9-11. Stable. DVT prophylaxis: Heparin subcu CODE STATUS: Full code, verified Expected disposition: Home, TBD Total clinical time spent by myself addressing the patient's medical issues, reviewing all the data, and collaborating with patient's care team: 35 minutes. Charges/Coding Visit Charges Inpatient E&M: 86118 Subs Hosp L2
[2023-11-17 15:50] LABS: Magnesium 2.1 mg/dL (1.6-2.6); Troponin-I HS 216 pg/mL (3.0-78.0)
[2023-11-17 19:39] LABS: Troponin-I HS 230 pg/mL (3.0-78.0)
--- NOTE | 2023-11-17 20:26 | NURSING ---
Dr Bustos was notified of elevated third troponin, telephone order for repeat roponin in am received, states will come and review tele strips and ekg in person. Came to floor and gave verbal order for coreg 12.5 mg and adjusted aerosol treatment orders.
[2023-11-17] MEDS: Carvedilol 12.5 MG Tablet PO (21:20)
[2023-11-18] MEDS: TACROLIMUS 1 MG 2 MG PO (05:17)
[2023-11-18 05:20] VITALS: BP 139/74; PULSE 68; RESP 18; TEMP 36.9; O2SAT 97
[2023-11-18] MEDS: Atorvastatin Calcium 80 MG Tablet PO (08:10)
[2023-11-18] MEDS: Pantoprazole Sodium 20 MG Tablet PO (08:10)
[2023-11-18] MEDS: Aspirin 81 MG TAB.CHEW PO (08:11)
[2023-11-18] MEDS: Oseltamivir Phosphate 30 MG Capsule PO ×2 (08:11→21:05)
[2023-11-18] MEDS: Acetaminophen 325 MG Tablet 650 MG PO ×2 (08:15→20:55)
[2023-11-18] MEDS: oxyCODONE 5 MG Tablet PO ×2 (08:19→20:54)
[2023-11-18 10:05] LABS: Anion Gap 9 (5-15); BUN 67 mg/dL (7-18); BUN/Creat Ratio 29.9 RATIO (10-20); Calcium,Total 8.5 mg/dL (8.5-10.1); Chloride 111 mmol/L (98-107); Creatinine, Serum 2.24 mg/dL (0.70-1.30); EST Glomerular Filtration Rate 33 mL/min (>60); Est Glom Filt Rate - Afr Amer 39 mL/min (>60); Estimated Creatinine Clearance 31.57 ml/min; Glucose 124 mg/dL (74-106); Potassium 5.4 mmol/L (3.5-5.1); Sodium Level 139 mmol/L (136-145); Troponin-I HS 229 pg/mL (3.0-78.0)
[2023-11-18 10:35] VITALS: BP 132/77; PULSE 69; RESP 18; TEMP 36.9; O2SAT 97
[2023-11-18] MEDS: Doxazosin 4 MG Tablet 8 MG PO (10:37)
[2023-11-18] MEDS: Carvedilol 12.5 MG Tablet PO (10:37)
[2023-11-18] MEDS: 0.9% Saline Lock 10 ML Syringe IV (10:38)
[2023-11-18] MEDS: Cefepime HCl 2 GM in 0.9% Normal Saline (100mL MB+) 100 ML IV (10:45)
--- NOTE | 2023-11-18 10:49 | PN.RENAL_ITS ---
Subjective Subjective Events noted. Had some chest pain overnight, troponins in the 200s. Currently does not have any chest pain. This morning he complains of tremors. Urine output is better. Urine is still on the darker side. No edema. Objective Data Objective Data Vital Signs: Vital Signs Temp Pulse Resp BP Pulse Ox O2 Del Method O2 Flow Rate 98.4 F 69 18 132/77 H 97 Nasal Cannula 1 11/18/23 10:35 11/18/23 10:35 11/18/23 10:35 11/18/23 10:35 11/18/23 10:35 11/18/23 10:35 11/18/23 10:35 Oxygen Flow Rate (L/min) 1 Oxygen Delivery Method Nasal Cannula Weight: 62 kg Body Mass Index (BMI) 23.4 Intake & Output: Intake and Output for Last 24 Hours 11/16/23 11/17/23 11/18/23 23:59 23:59 23:59 Intake Total 3755.00 / 3955.00 2440 / 2440 Output Total 900 / 1000 1400 / 1400 Balance 2855.00 / 2955.00 1040 / 1040 Lab / Micro Data 11/17/23 08:19 11/18/23 07:27 Labs: Laboratory Results - last 24 hr 11/17/23 11:28: Random Vancomycin 16.5 H 11/17/23 12:57: Troponin I High Sens 220 H* 11/17/23 14:41: Magnesium 2.1, Troponin I High Sens 216 H* 11/17/23 18:57: Troponin I High Sens 230 H* 11/18/23 07:27: Sodium 139, Potassium 5.4 H, Chloride 111 H, Carbon Dioxide 19.0 L, Anion Gap 9, BUN 67 H, Creatinine 2.24 H, Estim Creat Clear Calc 31.57, Est GFR (MDRD) Af Amer 39 L, Est GFR (MDRD) Non-Af 33 L, BUN/Creatinine Ratio 29.9 H , Glucose 124 H, Calcium 8.5, Troponin I High Sens 229 H* Micro: Microbiology 11/15/23 07:13 Mucosa - Nose SARS-CoV-2, Influenza & RSV (PCR) - Final Influenzae A Physical Exam Const alert, oriented x3 and no apparent distress General Appearance: well developed Orientation / Consciousness: oriented to person, oriented to place and oriented to time HEENT normocephalic Eyes PERRL Neck no lymphadenopathy Resp no use of accessory muscles Auscultation: wheezes and diminished lung sounds Cardio regular rate GI non-tender Auscultation: normoactive bowel sounds Neuro CN's II-XII intact bilaterally Sensorium / Orientation: awake and alert Psych cooperative Assessment & Plan Assessment/Plan (1) Acute kidney injury: PLAN: CKD stage IIIb. Baseline creatinine is between 1.5-2. History of kidney transplant at [facility]. Primary transplant therapeutic radiologist is Dr. Miller Acute renal failure is likely volume depletion. Urine sodium is low. With IV fluids alone, creatinine has improved. Down to 2.2. Urine analysis is not impressive. Renal ultrasound with mild hydronephrosis. He had a CT abdomen about 5 years ago and back then he did not have hydronephrosis. Initially he did have some urinary retention. No postvoid bladder scans are negative. Continue to monitor bladder scans. Urine output has been good. Immunosuppression. At home he is on long-acting tacrolimus, CellCept, prednisone. CellCept is on hold due to influenza pneumonia. Complains of tremors. Sent a tacrolimus level. He is also on Solu-Medrol 40 mg which alone should cover the immunosuppression part. Acidosis/hyperkalemia. Will give 1 L of IV fluid today Discussed with hospitalist (2) Chronic kidney disease: QUALIFIERS: Chronic kidney disease stage: stage 4 (severe) Qualified Code(s): N18.4 - Chronic kidney disease, stage 4 (severe)
[2023-11-18] MEDS: Sodium Bicarbonate 150 MEQ in Dextrose 5%-Water (1000mL Bag) 1,000 ML 100 MEQ IV ×2 (11:38→22:16)
--- NOTE | 2023-11-18 14:24 | PCM.PN.HOSP ---
Reason for Visit Reason for Visit: Diagnoses Disorder involving the immune mechanism, unspecified (11/15/23) Heart failure, unspecified (11/15/23) Influenza due to other identified influenza virus with other respiratory manifestations (11/15/23) Chronic obstructive pulmonary disease with (acute) exacerbation (11/15/23) Acute kidney failure, unspecified (11/15/23) Chronic kidney disease, stage 4 (severe) (11/15/23) Hypoxemia (11/15/23) Subjective Subjective No acute events overnight. Patient seen at bedside this morning. Patient was laying comfortably in bed, conversing normally, no acute distress. Patient did continue to appear fatigued this morning but slightly improved from yesterday. States that he did not have any significant chest pain or discomfort overnight. Does continue to have a mild tremor of his hands. Still does not have much of an appetite. Denies any fevers or chills. No other acute concerns this time. Objective Data Objective Data Vital Signs: Vital Signs Temp Pulse Resp BP Pulse Ox O2 Del Method O2 Flow Rate 98.4 F 69 18 132/77 H 97 Nasal Cannula 1 11/18/23 10:35 11/18/23 10:35 11/18/23 10:35 11/18/23 10:35 11/18/23 10:35 11/18/23 10:35 11/18/23 10:35 Oxygen Flow Rate (L/min) 1 Oxygen Delivery Method Nasal Cannula Weight: 62 kg Body Mass Index (BMI) 23.4 Intake & Output: Intake and Output for Last 24 Hours 11/16/23 11/17/23 11/18/23 23:59 23:59 23:59 Intake Total 3755.00 / 3955.00 2440 / 2440 460 / 460 Output Total 900 / 1000 1400 / 1400 425 / 425 Balance 2855.00 / 2955.00 1040 / 1040 35 / 35 Lab / Micro Data 11/17/23 08:19 11/18/23 07:27 Labs: Laboratory Results - last 24 hr 11/17/23 14:41: Magnesium 2.1, Troponin I High Sens 216 H* 11/17/23 18:57: Troponin I High Sens 230 H* 11/18/23 07:27: Sodium 139, Potassium 5.4 H, Chloride 111 H, Carbon Dioxide 19.0 L, Anion Gap 9, BUN 67 H, Creatinine 2.24 H, Estim Creat Clear Calc 31.57, Est GFR (MDRD) Af Amer 39 L, Est GFR (MDRD) Non-Af 33 L, BUN/Creatinine Ratio 29.9 H, Glucose 124 H, Calcium 8.5, Troponin I High Sens 229 H* Micro: Microbiology 11/15/23 07:13 Mucosa - Nose SARS-CoV-2, Influenza & RSV (PCR) - Final Influenzae A Physical Exam Const alert, oriented x3, no apparent distress and average body habitus Constitutional Narrative: Pleasant middle-aged male, fatigued appearing, remains flushed this morning but not diaphoretic, slightly improved from yesterday, otherwise laying fairly comfortably in bed, conversing normally, no acute distress. General Appearance: cooperative and comfortable HEENT normocephalic, head/scalp atraumatic, hearing grossly normal bilaterally and nasal mucous membranes and turbinates normal Eyes PERRL, EOMs intact bilaterally and conjunctivae normal Neck full ROM, no lymphadenopathy and supple Lymph Lymphatic: no lymphadenopathy noted Chest inspection of chest normal Resp Resp Narrative: Breathing comfortably on 2 L nasal cannula. No upper airway wheezing noted. No crackles noted. Mildly decreased air movement in bilateral lung bases but otherwise fairly good air movement in upper lung pierson. Cardio regular rate, regular rhythm, no murmurs and peripheral pulses 2+ throughout GI normal to inspection, nondistended, normoactive bowel sounds, soft to palpation, non-tender and non-distended Back/Spine normal ROM Extremity normal to inspection, full ROM and no pedal edema Skin no rashes or lesions noted Neuro moves all extremities and no focal motor deficits Speech: speech normal Psych mental status grossly normal Assessment & Plan Assessment/Plan (1) Hypoxia: (2) Influenza A: (3) Immunosuppressed status: (4) COPD exacerbation: (5) CHF exacerbation: PLAN: Plan Patient is a 53-year-old male who presented to [facility] ED on 11/15/2023 with shortness of breath, fever/chills and myalgias. 1. Influenza A infection, mild COPD exacerbation with acute hypoxia, concern for CHF exacerbation, suspected superimposed bacterial infection Influenza A positive on admit. Chest x-ray showed diffuse bronchial wall thickening with streaky airspace opacities in mid and lower lungs bilaterally. Not on home O2, requiring up to 5 L nasal cannula in ED due to hypoxia. Low-grade fever with mild tachypnea on admit, otherwise hemodynamically stable. WBC count normal. TTE 11/15 showed EF 65%, stage II diastolic dysfunction, mild concentric LV hypertrophy, mildly enlarged LA, no significant valvular disease. BNP 594, mildly worsened from previous. Procalcitonin 0.95, WBC count worsened on hospital day 2. ? Continue treatment with IV steroids, scheduled DuoNebs, Tamiflu. Blood cultures 11/15 with no growth to date, continue vancomycin and cefepime for broad coverage for now. S/p 3 L of IV fluids total from 11/16-11/18 due to continued volume depletion, patient tolerated without issue. WBC count fairly stable, continue to monitor CBC daily. 2. [place] on CKD stage IV, improving; history of renal transplant x 2 last in 2009 ? Nephrology following. Creatinine 2.33 on admit, baseline creatinine unclear, last creatinine was 2.30 back in 01/2023. Creatinine worsened to 3.23 on hospital day 2 after dose of IV Lasix on 11/15. Patient is now s/p 3 L of IV fluids as of 11/18, given 1 L of IV fluids daily from 11/16-11/18 due to volume depletion. Creatinine improved to 2.24 on 11/18. Has had low normal urine output, dark in appearance. Will hold home CellCept in setting of acute infection, continue home tacrolimus. Checking tacrolimus level on 11/19 as noted below. 3. Hyperkalemia, stable ? Nephrology following as above. Potassium 5.4 on admit, worsened to 6.0 on 11/16. Presumed secondary to [place] and home Bactrim, giving IV fluids and discontinued Bactrim as noted above. EKG on 11/16 with no acute changes. Treated with insulin and dextrose on 11/16 with good improvement. Potassium 5.4 on 11/18. Continue renal diet. IV fluids given as noted above. Continue to monitor BMP daily. 4. Urinary retention, history of BPH with obstructive symptoms ? Bladder scan on 11/16 with > 600cc urine, however patient was able to urinate at that time and post residual volume was low. Renal/bladder ultrasound 11/16 showed only mild hydronephrosis with empty bladder. Checking bladder scans as needed. Continue home doxazosin. 5. Intermittent runs of V. tach with chest pain, elevated troponins with negative delta ? Cardiology consulted. Troponins elevated in 200s but remained stable on multiple rechecks. Noted that EKGs have shown normal sinus rhythm and are stable for previous, no evidence of ischemia. Echo on admit with normal EF, stage II diastolic dysfunction as noted above. Per cardiology, suspect noncardiac etiology is because of elevated troponins in setting of known diffuse vascular disease. Restarted home Coreg and amlodipine on 11/18. Continue home baby aspirin. 6. Hand tremors ? Patient reporting mild hand tremors for the past few days. Unclear etiology but per nephrology, can see hand tremors like this with an elevated tacrolimus level. Tac level ordered for tomorrow morning. 7. History of CAD with remote CABG, hypertension, hyperlipidemia ? Normotensive to slightly hypertensive on admission. Continue home aspirin and statin. Restarted home amlodipine and carvedilol on 11/18 as noted above. Chronic medical conditions: ? GERD: Continue home PPI. ? Neuropathy: Continue home gabapentin. ? Chronic anemia: Hemoglobin 9.6 on admit, baseline hemoglobin appears to be around 9-11. Stable. DVT prophylaxis: Heparin subcu CODE STATUS: Full code, verified Expected disposition: Home, TBD Total clinical time spent by myself addressing the patient's medical issues, reviewing all the data, and collaborating with patient's care team: 35 minutes. Charges/Coding Visit Charges Inpatient E&M: 63849 Subs Hosp L2
[2023-11-18] MEDS: Gabapentin 600 MG Tablet PO ×2 (14:36→20:54)
[2023-11-18 16:20] LABS: Vancomycin, Random Level 20.2 ug/mL (0.0-15.0)
--- NOTE | 2023-11-18 16:24 | PCM.CONS.C ---
Assessment & Plan Assessment/Plan (1) Troponin I above reference range: PLAN: The patient's troponins have hovered around 200-230. There are multiple explanations given his known occluded right coronary artery with collateral flow, his hypertension, his presenting hypoxia, and his influenza A infection. He also has acute renal insufficiency which is improving. His symptoms are not identical to what he has experienced in the past and the last time he had an event he was treated medically per the previous cath report documented above from September 2021. The patient has extensive vascular disease status post femorofemoral bypass he has multiple shunts and revisions of those shunts in his upper extremities but there was inability to reach his cardiovascular central circulation via the left groin approach back in September 26. That vessel was closed with a Vascade device after the procedure. At this point in time given the multiple possible explanations for his small bump in troponins I do not feel that invasive evaluation is indicated. The patient's echocardiogram done on this admission showed an ejection fraction of 65% with concentric left ventricular hypertrophy and stage II diastolic dysfunction. There is mild aortic stenosis with a peak gradient of 22 and a mean gradient of 12 with 1+ aortic insufficiency documented. (2) Hypertension: QUALIFIERS: Hypertension type: primary hypertension Qualified Code(s): I10 - Essential (primary) hypertension PLAN: The patient's blood pressure has been documented simultaneously to be 180-190 systolic in the right arm and 120-1 30 in the left arm. I am concerned that the accuracy of his true central circulation pressure is difficult to obtain given his vasculopathy and multiple upper extremity dialysis shunt interventions. His lower extremities are complicated by significant peripheral vascular disease he is status post femorofemoral bypass. I do not palpate pulses in his feet but they are warm to touch. (3) Acute kidney injury: PLAN: Creatinine has improved to 2.24 this is being managed by the nephrology service. He is status post his second transplant 2009. (4) Influenza A: PLAN: The patient appears to be recovering his LV function is normal with an ejection fraction of 65% it does not appear that he has a significant myocarditis. (5) PVD (peripheral vascular disease): PLAN: The patient has significant peripheral vascular disease in his lower extremities he is status post femorofemoral bypass at [facility]. The patient's feet are warm to touch and appears to have capillary refill. He denies rest pain. PLAN: Plan 1. As blood pressure tolerates would reinstitute his home medications of Coreg amlodipine and atorvastatin. He should also be on a baby aspirin a day long-term. 2. Patient should follow-up with his [facility] personal banking officer per his previous arranged appointments. 3. The patient should be monitored for progression of his aortic valve disease however access to approach this either percutaneously TAVR or via a median sternotomy would be extremely difficult given his overall vascular situation and prior bypass grafts including a ROBERT. 4. I will follow with you and please call if further assistance is needed. Thank you for allowing me to participate in the care of your patient. Please don't hesitate to call if any issues arise. This note was generated using a voice recognition system and there may be incorrect words, spelling, or punctuation that were not noted when reviewing the office note prior to saving. Portions of this documentation were copied and pasted from previous office visit notes to provide a cohesive continuity of the history. The note has been reviewed, edited, and updated, as necessary. HPI Consult Data Date of Consult: 11/18/23 HPI Narrative Reason for Consultation: Positive Troponin HPI Narrative: MARIAN BARROSO, is a 53 M who presents presented on November 15, 2023 to the emergency department. The patient was hypoxic and complaining of some chest discomfort. He also tested positive for influenza A and has a history of COPD. He also has a history of chronic renal failure status posttransplant 1991 and again in 2009. His baseline creatinine is 1.5?2. On admission he appeared to be dehydrated with a creatinine of 3.23 which is improved to 2.24 with IV fluids. His BNP was 594 in the face of acute renal failure on admission. Historically in January 2023 he had a BNP of 180. The patient is resting comfortably on nasal cannula. The patient's troponins were 220, 216, 230, and 229. This is in the face of a patient with known occluded coronary anatomy with [place] collaterals. This is also in the face of the influenza which can also increase the enzymes. And in the face of acute renal failure which will cause elevation of the enzymes. It is also difficult to know his true central blood pressure given his vasculopathy and multiple shunts in both arms. The patient is also status post femorofemoral bypass. He has a history of a known right iliac occlusion and his current transplant is on the left pelvic cavity. Currently the patient denies any chest discomfort he reports He did have the discomfort it radiated around to the right side into his back it was somewhat reminiscent of pains he had at the time of an acute coronary event back in 2020. At that time he was cathed via the left groin by Dr. Arsh Summers at [facility]. That catheterization revealed all 3 [place] vessels to be occluded. The LAD and diagonal were filled via a ROBERT graft to the LAD which was patent the OM branch and posterolateral branch of the circumflex were fed by the 2 separate saphenous vein grafts which were patent. The right coronary artery was filled distally be via right to right and left to right [place] collateral flow. Medical treatment was recommended. The left groin was utilized for access and was closed with a Vascade device. The patient's secondary risk factors of hypertension, hyperlipidemia, and tobacco use were discussed. It is mandatory that he stopped using oral nicotine pouches. [facility] Medical History (Updated 11/18/23 @ 16:[address] 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 Neurogenic bladder VIC (obstructive sleep apnea) Pulmonary embolism PVD (peripheral vascular disease) Home Medications aspirin 81 mg chewable tablet 81 mg PO DAILY health maintenance 02/21/14 [History Last Taken 07/21/19] doxazosin 8 mg tablet (Cardura) 8 mg PO DAILY BLADDER 02/21/14 [History Last Taken 07/21/19] mycophenolate mofetil 500 mg tablet 500 mg PO BID ANTI-REJECTION 02/21/14 [History Last Taken 07/21/19] omeprazole 20 mg capsule,delayed release 20 mg PO DAILY ACID REFLUX 02/21/14 [History Last Taken 07/21/19] magnesium oxide 400 mg (241.3 mg magnesium) tablet (MgO) 400 mg PO BID SUPPLEMENT 12/25/17 [History Last Taken 07/21/19] atorvastatin 80 mg tablet 80 mg PO DAILY cholesterol 12/30/17 [History Last Taken 07/21/19] carvedilol 25 mg tablet 25 mg PO BID blood pressure 12/30/17 [History Last Taken 07/21/19] albuterol sulfate 90 mcg/actuation aerosol inhaler 1 - 2 puff inhalation Q4H PRN PRN Shortness Of Breath ##1 07/24/19 [Rx Last Taken Unknown] albuterol sulfate 2.5 mg/3 mL (0.083 %) solution for nebulization 2.5 mg inhalation Q4H PRN shortness of breath or wheezing 10/03/21 [History Last Taken Unknown] prednisone 5 mg tablet 5 mg PO DAILY 10/04/21 [History Last Taken Unknown] sulfamethoxazole 400 mg-trimethoprim 80 mg tablet (Bactrim) 1 tab PO DAILY 10/04/21 [History Last Taken Unknown] tacrolimus 0.5 mg capsule,extended release 24 hr (Astagraf XL) 2 mg PO DAILY 10/04/21 [History Last Taken Unknown] albuterol sulfate 2.5 mg/3 mL (0.083 %) solution for nebulization 2.5 mg (3 mL) inhalation Q4H PRN PRN shortness of breath or wheezing #25 vials 07/27/22 [Rx Last Taken Unknown] acetaminophen 500 mg tablet 1,000 mg PO Q8 PRN fever or pain 11/15/23 [History Last Taken Unknown] amlodipine 5 mg tablet (Norvasc) 5 mg PO DAILY 11/15/23 [History Last Taken Unknown] Allergy/AdvReac Type Severity Reaction Status Date / Time propoxyphene napsylate Allergy Hives Verified 11/15/23 06:36 [From Darvocet-N] venom-honey bee Allergy Hives Verified 11/15/23 06:36 [bee venom (honey bee)] Family History Father Arthritis Cancer Lung cancer, 1990 CAD (coronary artery disease) Mother CAD (coronary artery disease) Diet 2012 Surgical History History of lung biopsy (~2007) History of renal transplant Renal transplant recipient S/P pericardial window creation (~1991) Social History Smoking Status: Former smoker pack-years: 19 Tobacco: How many years used: 15 ROS Constitutional Constitutional: Reports as per HPI Eyes Eyes: Reports systems reviewed and no addt'l complaints, except as documented ENT HEENT: Reports systems reviewed and no addt'l complaints, except as documented Cardiovascular Cardiovascular: Reports as per HPI Respiratory/Chest Respiratory/Chest: Reports as per HPI Gastrointestinal Gastrointestinal: Reports systems reviewed and no addt'l complaints, except as documented Genitourinary Genitourinary: Reports as per HPI Musculoskeletal Musculoskeletal: Reports systems reviewed and no addt'l complaints, except as documented Integumentary Integumentary: Reports unusual bruising Neurologic Neurologic: Reports systems reviewed and no addt'l complaints, except as documented Psychiatric Psychiatric: Reports none Endocrine Endocrinology: Reports as per HPI Hematologic/Lymphatic Hematologic/Lymphatic: Reports as per HPI Allergic/Immunologic Allergic/Immunologic: Reports systems reviewed and no addt'l complaints, except as documented Physical Exam Const oriented x3 Constitutional Narrative: Hern[place] skin color. HEENT normocephalic Eyes EOMs intact bilaterally Neck no JVD and no carotid bruits Chest inspection of chest normal Chest: midline sternotomy incision Resp normal respiratory effort Auscultation: crackles bilateral (bases) Cardio regular rate, regular rhythm, S1 normal heart sound, S2 normal heart sound, no rub and no gallops Heart Sounds: murmur systolic II/ soft early left sternal border Peripheral Pulses: radial pulses present right 1+ and left diminished and posterior tibial pulses present bilateral diminished (Not palpable but the feet are warm to touch.) GI soft to palpation GI Narrative: Could not hear definitive bruit in the left pelvic area but there was hyperactive bowel sounds. Extremity Extremity Narrative: Warm to touch multiple scars in the upper extremities related to surgical intervention for shunts. Skin General Skin Exam: ecchymosis Psych mental status grossly normal Risk Stratification Risk Stratification Applicable: Yes Age >/= 65: No >/= 3 CAD Risk Factors (HTN, HLD, DM, family hx of CAD, or current smoker): Yes Aspirin Use in the Past 7 Days: Yes Severe Angina (>/= episodes in 24 hours): No EKG ST Changes >/= 0.5mm: No Positive Cardiac Marker: Yes RACHEL Risk Stratification Score: 3 RACHEL % Risk: 13% Risk Charges/Coding Visit Charges Inpatient E&M: 61792 Init Hosp L3 Objective Data Vital Signs: Vital Signs Temp Pulse Resp BP Pulse Ox O2 Del Method O2 Flow Rate 98.4 F 69 18 132/77 H 97 Nasal Cannula 1 11/18/23 10:35 11/18/23 10:35 11/18/23 10:35 11/18/23 10:35 11/18/23 10:35 11/18/23 10:35 11/18/23 10:35 Oxygen Flow Rate (L/min) 1 Oxygen Delivery Method Nasal Cannula Weight: 136 lb 10.986 oz Body Mass Index (BMI) 23.4 Intake & Output: Intake and Output for Last 24 Hours 11/16/23 11/17/23 11/18/23 23:59 23:59 23:59 Intake Total 3755.00 / 3955.00 2440 / 2440 460 / 460 Output Total 900 / 1000 1400 / 1400 425 / 425 Balance 2855.00 / 2955.00 1040 / 1040 35 / 35 Lab / Micro Data 11/17/23 08:19 11/18/23 07:27 Labs: Laboratory Results - last 24 hr 11/17/23 18:57: Troponin I High Sens 230 H* 11/18/23 07:27: Sodium 139, Potassium 5.4 H, Chloride 111 H, Carbon Dioxide 19.0 L, Anion Gap 9, BUN 67 H, Creatinine 2.24 H, Estim Creat Clear Calc 31.57, Est GFR (MDRD) Af Amer 39 L, Est GFR (MDRD) Non-Af 33 L, BUN/Creatinine Ratio 29.9 H, Glucose 124 H, Calcium 8.5, Troponin I High Sens 229 H* 11/18/23 15:05: Random Vancomycin 20.2 H Rhythm Strip Rhythm Strip: Sinus Rhythm Rate: 70 Cardiology Labs/Tests 11/18/23 07:27: Sodium 139, Potassium 5.4 H, Chloride 111 H, Carbon Dioxide 19.0 L, Anion Gap 9, BUN 67 H, Creatinine 2.24 H, Est GFR (MDRD) Af Amer 39 L, Est GFR (MDRD) Non-Af 33 L, BUN/Creatinine Ratio 29.9 H, Glucose 124 H, Calcium 8.5 Rhythm: EKG: ECHO: Stress Test: Cardiac Cath: PCI: CT Surgery: Holter monitor: EPS: PPM: CXR: Chest CT Scan: EKG Follow-up EKG: Interpretation: Normal sinus rhythm right bundle branch block left anterior fascicular block with no new changes compared to previous EKGs this admission.
[2023-11-18 16:35] VITALS: BP 159/88; PULSE 64; RESP 18; TEMP 36.4; O2SAT 96
--- NOTE | 2023-11-18 16:36 | PCM.RX.CS ---
Consult Antibiotic Management Pharmacy has been consulted to manage selected antibiotic: Vancomycin Type of Intervention Type of Consult: Follow-up Prior Doses of Antibiotics Prior Doses of Antibiotics Received/Current Regimen: Last dose was 1000mg iv x 1 on 11.17.23 @1502. Labs Labs: Sodium 139 mmol/L (136-145) 11/18/23 07:27 Potassium 5.4 mmol/L (3.5-5.1) H 11/18/23 07:27 Chloride 111 mmol/L (98-107) H 11/18/23 07:27 Carbon Dioxide 19.0 mmol/L (21.0-32.0) L 11/18/23 07:27 Anion Gap 9 (5-15) 11/18/23 07:27 BUN 67 mg/dL (7-18) H 11/18/23 07:27 Creatinine 2.24 mg/dL (0.70-1.30) H 11/18/23 07:27 Est GFR (MDRD) Af Amer 39 mL/min (>60) L 11/18/23 07:27 Est GFR (MDRD) Non-Af 33 mL/min (>60) L 11/18/23 07:27 BUN/Creatinine Ratio 29.9 RATIO (10-20) H 11/18/23 07:27 Glucose 124 mg/dL (74-106) H 11/18/23 07:27 Random Vancomycin 20.2 ug/mL (0.0-15.0) H 11/18/23 15:05 Microbiology Microbiology: Microbiology 11/15/23 07:13 Mucosa - Nose SARS-CoV-2, Influenza & RSV (PCR) - Final Influenzae A Dosing Weight Weight used for dosin kg Estimated Creatinine Clearance Estimated Creatinine Clearance: ~32ml/min Pharmacy Plan for Drug Dosing Pharmacy Plan for Drug Dosing: Random level today @1505 (24hrs post dose) was 20.2. Recommend giving a one-time dose of 750mg today and repeating random level tomorrow 24hrs post dose. Pharmacy Service will continue to monitor and adjust dosing as required. Follow-Up Labs Follow-Up Labs: Trough: Vancomycin (random level 11.29.23 @1700)
[2023-11-18 16:38] VITALS: O2SAT 96
[2023-11-18] MEDS: Vancomycin HCl 750 MG in 0.9% Normal Saline (250mL Bag) 250 ML 250 MG IV (16:53)
--- NOTE | 2023-11-18 19:42 | EKG12_ITS ---
Test Reason : cp Blood Pressure : / mmHG Vent. Rate : 067 BPM Atrial Rate : 067 BPM P-R Int : 116 ms QRS Dur : 146 ms QT Int : 408 ms P-R-T Axes : 055 -58 006 degrees QTc Int : 431 ms Sinus rhythm with Premature supraventricular complexes Right bundle branch block Left anterior fascicular block Bifascicular block Abnormal ECG When compared with ECG of 17-NOV-2023 09:44, MANUAL COMPARISON REQUIRED, DATA IS UNCONFIRMED Confirmed by Celso Byrd ([id number]), fan mail editor EDSON PEREIRA ([id number]) on 11/19/2023 1:51:28 PM Referred By: Timi Confirmed By:Celso Byrd
[2023-11-18] MEDS: Ipratropium 0.5 MG/2.5 ML SOLUTION INHALATION (19:48)
[2023-11-18 19:50] VITALS: PULSE 71; RESP 18; O2SAT 94
[2023-11-18 20:52] VITALS: BP 149/74; PULSE 85; RESP 18; TEMP 36.6; O2SAT 96
[2023-11-18] MEDS: Carvedilol 25 MG Tablet PO (21:05)
[2023-11-19] VITALS (8 sets, daily range): BP systolic 136–156; BP diastolic 69–78; PULSE 55–82; RESP 16–19; TEMP 35.8–36.8; O2SAT 93–97
[2023-11-19] MEDS: TACROLIMUS 1 MG 2 MG PO (06:17)
[2023-11-19] MEDS: Gabapentin 600 MG Tablet PO ×3 (06:18→21:55)
[2023-11-19 08:08] LABS: Anion Gap 5 (5-15); BUN 54 mg/dL (7-18); BUN/Creat Ratio 34.4 RATIO (10-20); Chloride 108 mmol/L (98-107); Creatinine, Serum 1.57 mg/dL (0.70-1.30); EST Glomerular Filtration Rate 49 mL/min (>60); Est Glom Filt Rate - Afr Amer 59 mL/min (>60); Estimated Creatinine Clearance 45.04 ml/min; Glucose 140 mg/dL (74-106); Potassium 4.2 mmol/L (3.5-5.1); Sodium Level 138 mmol/L (136-145)
[2023-11-19] MEDS: Carvedilol 25 MG Tablet PO ×2 (09:54→21:47)
[2023-11-19] MEDS: amLODIPine 5 MG Tablet PO (09:54)
[2023-11-19] MEDS: 0.9% Saline Lock 10 ML Syringe IV (09:57)
[2023-11-19] MEDS: Aspirin 81 MG TAB.CHEW PO (10:06)
[2023-11-19] MEDS: Doxazosin 4 MG Tablet 8 MG PO (10:06)
[2023-11-19] MEDS: Atorvastatin Calcium 80 MG Tablet PO (10:07)
[2023-11-19] MEDS: Cefepime HCl 2 GM in 0.9% Normal Saline (100mL MB+) 100 ML IV (10:07)
[2023-11-19] MEDS: Pantoprazole Sodium 20 MG Tablet PO (10:07)
[2023-11-19] MEDS: Oseltamivir Phosphate 30 MG Capsule PO ×2 (11:06→21:55)
--- NOTE | 2023-11-19 12:19 | PCM.PN.HOSP ---
Reason for Visit Reason for Visit: Diagnoses Disorder involving the immune mechanism, unspecified (11/15/23) Essential (primary) hypertension (11/15/23) Heart failure, unspecified (11/15/23) Peripheral vascular disease, unspecified (11/15/23) Influenza due to other identified influenza virus with other respiratory manifestations (11/15/23) Chronic obstructive pulmonary disease with (acute) exacerbation (11/15/23) Acute kidney failure, unspecified (11/15/23) Chronic kidney disease, stage 4 (severe) (11/15/23) Hypoxemia (11/15/23) Abnormal levels of other serum enzymes (11/15/23) Subjective Subjective No acute events overnight. Patient seen at bedside this morning. Patient was sitting up at the edge of the bed, conversing normally, no acute distress. Patient appears improved from previous days. He does report continued chest discomfort with coughing and mild hand tremor, similar to previous days. However, he denies any significant chest pain with exertion and generally feels improved from previous days. No other acute concerns morning. Objective Data Objective Data Vital Signs: Vital Signs Temp Pulse Resp BP Pulse Ox O2 Del Method O2 Flow Rate 97.7 F L 66 18 152/72 H 95 Room Air 1 11/19/23 09:37 11/19/23 09:37 11/19/23 09:37 11/19/23 09:37 11/19/23 09:37 11/19/23 09:41 11/18/23 10:35 Oxygen Flow Rate (L/min) 1 Oxygen Delivery Method Room Air Weight: 62 kg Body Mass Index (BMI) 23.4 Intake & Output: Intake and Output for Last 24 Hours 11/17/23 11/18/23 11/19/23 23:59 23:59 23:59 Intake Total 2440 / 2440 2708.33 / 2881.66 273.33 / 273.33 Output Total 1400 / 1400 2425 / 2425 600 / 600 Balance 1040 / 1040 283.33 / 456.66 -326.67 / -326.67 Lab / Micro Data 11/17/23 08:19 11/19/23 06:45 Labs: Laboratory Results - last 24 hr 11/18/23 15:05: Random Vancomycin 20.2 H 11/19/23 06:45: Sodium 138, Potassium 4.2, Chloride 108 H, Carbon Dioxide 25.0, Anion Gap 5, BUN 54 H, Creatinine 1.57 H, Estim Creat Clear Calc 45.04, Est GFR (MDRD) Af Amer 59 L, Est GFR (MDRD) Non-Af 49 L, BUN/Creatinine Ratio 34.4 H, Glucose 140 H, Calcium 9.0 Micro: Microbiology 11/15/23 07:13 Mucosa - Nose SARS-CoV-2, Influenza & RSV (PCR) - Final Influenzae A Rhythm Strip Rhythm Strip: Sinus Rhythm Rate: 70 Physical Exam Const alert, oriented x3, no apparent distress and average body habitus Constitutional Narrative: Pleasant middle-aged male, fatigued appearing, keith appearance, sitting up comfortably at edge of the bed, conversing normally, no acute distress. General Appearance: cooperative and comfortable HEENT normocephalic, head/scalp atraumatic, hearing grossly normal bilaterally and nasal mucous membranes and turbinates normal Eyes PERRL, EOMs intact bilaterally and conjunctivae normal Neck full ROM, no lymphadenopathy and supple Lymph Lymphatic: no lymphadenopathy noted Chest inspection of chest normal Resp Resp Narrative: Breathing comfortably on room air. No upper airway wheezing noted. No crackles noted. Mildly decreased air movement in bilateral lung bases but otherwise fairly good air movement in upper lung pierson. Cardio regular rate, regular rhythm, no murmurs and peripheral pulses 2+ throughout GI normal to inspection, nondistended, normoactive bowel sounds, soft to palpation, non-tender and non-distended Back/Spine normal ROM Extremity normal to inspection, full ROM and no pedal edema Skin no rashes or lesions noted Neuro moves all extremities and no focal motor deficits Speech: speech normal Psych mental status grossly normal Assessment & Plan Assessment/Plan (1) Hypoxia: (2) Influenza A: (3) Immunosuppressed status: (4) COPD exacerbation: (5) CHF exacerbation: PLAN: Plan Patient is a 53-year-old male who presented to [facility] ED on 11/15/2023 with shortness of breath, fever/chills and myalgias. 1. Influenza A infection, mild COPD exacerbation with acute hypoxia, concern for CHF exacerbation, concern for superimposed bacterial infection Influenza A positive on admit. Chest x-ray showed diffuse bronchial wall thickening with streaky airspace opacities in mid and lower lungs bilaterally. Not on home O2, requiring up to 5 L nasal cannula in ED due to hypoxia. Low-grade fever with mild tachypnea on admit, otherwise hemodynamically stable. WBC count normal. TTE 11/15 showed EF 65%, stage II diastolic dysfunction, mild concentric LV hypertrophy, mildly enlarged LA, no significant valvular disease. BNP 594, mildly worsened from previous. Procalcitonin 0.95, WBC count worsened on hospital day 2. Infectious workup negative. ? Treated with IV steroids, scheduled DuoNebs, Tamiflu, vancomycin and cefepime through 11/19. Will complete 5-day course of Tamiflu on morning of 11/20. Transition to p.o. prednisone 40 mg daily on 11/20 with plan for prednisone taper, see orders for further details. Transition to Augmentin on 11/20 with plan to complete 7-day course of antibiotics total. Duonebs as needed. Stable on RA at rest on 11/19, will need home O2 evaluation prior to discharge. If remains stable, likely okay for discharge home tomorrow. 2. [place] on CKD stage IV, improving; history of renal transplant x 2 last in 2009 ? Nephrology following. Creatinine 2.33 on admit, baseline creatinine unclear, last creatinine was 2.30 back in 01/2023. Creatinine initially worsened with peak at 3.23 on hospital day 2. S/p 3 L IV fluids during hospitalization with great improvement in creatinine. Most recent creatinine 1.57 on 11/19. Good urine output. Holding home CellCept in setting of acute infection. Continued home tacrolimus but high concern for elevated level, level drawn on morning of 11/19 and is pending. 3. Hyperkalemia, improved ? Nephrology following as above. Potassium 5.4 on admit, worsened to 6.0 on 11/16. Presumed secondary to [place] and home Bactrim, giving IV fluids and discontinued Bactrim as noted above. EKG on 11/16 with no acute changes. Treated with insulin and dextrose on 11/16 with good improvement. Potassium 4.2 on 11/19. Continue renal diet. Continue to monitor BMP daily. 4. History of intermittent urinary retention, history of BPH with obstructive symptoms ? Patient reported history of intermittent urinary retention occasionally requiring straight cath at home for the past several years. Has been voiding fairly well during hospitalization, post residual volumes have intermittently been around 100 to 200 cc, has not required straight cath while here. Renal/bladder ultrasound 11/16 showed only mild hydronephrosis with empty bladder. Continue home doxazosin. 5. Intermittent runs of V. tach with chest pain, elevated troponins with negative delta ? Cardiology evaluated. Troponins elevated in 200s but remained stable on multiple rechecks. Noted that EKGs have shown normal sinus rhythm and are stable for previous, no evidence of ischemia. Echo on admit with normal EF, stage II diastolic dysfunction as noted above. Per cardiology, suspect noncardiac etiology is because of elevated troponins in setting of known diffuse vascular disease. Restarted home Coreg and amlodipine on 11/18. Continue home baby aspirin. 6. Hand tremors ? Patient reporting mild hand tremors for the past few days. Unclear etiology but per nephrology, can see hand tremors like this with an elevated tacrolimus level. Tac level drawn on 11/19, pending. 7. History of CAD with remote CABG, hypertension, hyperlipidemia ? Normotensive to slightly hypertensive on admission. Continue home aspirin and statin. Restarted home amlodipine and carvedilol on 11/18 as noted above. Chronic medical conditions: ? GERD: Continue home PPI. ? Neuropathy: Continue home gabapentin. ? Chronic anemia: Hemoglobin 9.6 on admit, baseline hemoglobin appears to be around 9-11. Stable. DVT prophylaxis: Heparin subcu CODE STATUS: Full code, verified Expected disposition: Home, 1-2 days Total clinical time spent by myself addressing the patient's medical issues, reviewing all the data, and collaborating with patient's care team: 35 minutes. Charges/Coding Visit Charges Inpatient E&M: 35303 Subs Hosp L2
--- NOTE | 2023-11-19 15:37 | PCM.PN.REN ---
Subjective Subjective Resting in bed. No overnight events. Denies any complaints. Objective Data Objective Data Vital Signs: Vital Signs Temp Pulse Resp BP Pulse Ox O2 Del Method O2 Flow Rate 97.5 F L 55 L 18 148/71 H 95 Room Air 1 11/19/23 14:24 11/19/23 14:24 11/19/23 14:24 11/19/23 14:24 11/19/23 14:24 11/19/23 14:41 11/18/23 10:35 Oxygen Flow Rate (L/min) 1 Oxygen Delivery Method Room Air Weight: 62 kg Body Mass Index (BMI) 23.4 Intake & Output: Intake and Output for Last 24 Hours 11/17/23 11/18/23 11/19/23 23:59 23:59 23:59 Intake Total 2440 / 2440 2708.33 / 2881.66 573.33 / 573.33 Output Total 1400 / 1400 2425 / 2425 1930 / 1930 Balance 1040 / 1040 283.33 / 456.66 -1356.67 / -1356.67 Lab / Micro Data 11/17/23 08:19 11/19/23 06:45 Labs: Laboratory Results - last 24 hr 11/18/23 15:05: Random Vancomycin 20.2 H 11/19/23 06:45: Sodium 138, Potassium 4.2, Chloride 108 H, Carbon Dioxide 25.0, Anion Gap 5, BUN 54 H, Creatinine 1.57 H, Estim Creat Clear Calc 45.04, Est GFR (MDRD) Af Amer 59 L, Est GFR (MDRD) Non-Af 49 L, BUN/Creatinine Ratio 34.4 H, Glucose 140 H, Calcium 9.0 Micro: Microbiology 11/15/23 07:13 Mucosa - Nose SARS-CoV-2, Influenza & RSV (PCR) - Final Influenzae A Rhythm Strip Rhythm Strip: Sinus Rhythm Rate: 70 Physical Exam Narrative Alert orient x 3, no apparent stress S1, S2, RRR Diminished breath sounds, no rales or rhonchi Abdomen soft, nontender No pitting edema Assessment & Plan Assessment/Plan (1) Acute kidney injury: PLAN: CKD stage IIIb. Baseline creatinine is between 1.5-2. History of kidney transplant at [facility]. Primary transplant topographical drafter is Dr. Miller Acute renal failure is likely volume depletion. Urine sodium was low. With IV fluids alone, creatinine improved. Serum creatinine peaked 3.23, improved to 1.57 mg/dL today. Urine analysis was not impressive. Renal ultrasound with mild hydronephrosis. He had a CT abdomen about 5 years ago and back then he did not have hydronephrosis. Initially he did have some urinary retention. No postvoid bladder scans are negative. Continue to monitor bladder scans. Urine output has been good. Immunosuppression. At home he is on long-acting tacrolimus, CellCept, prednisone. CellCept is on hold due to influenza pneumonia. Complains of tremors. Sent a tacrolimus level which is pending. He is also on Solu-Medrol 40 mg which alone should cover the immunosuppression part. Acidosis/hyperkalemia. Improved with IV fluids. Influenza A infection, mild COPD (2) Chronic kidney disease: QUALIFIERS: Chronic kidney disease stage: stage 4 (severe) Qualified Code(s): N18.4 - Chronic kidney disease, stage 4 (severe)
[2023-11-19] MEDS: Ipratropium 0.5 MG/2.5 ML SOLUTION INHALATION (16:58)
[2023-11-19] MEDS: Acetaminophen 325 MG Tablet 650 MG PO (21:48)
[2023-11-19] MEDS: Amox/Clavulanate 875 MG Tablet PO (21:56)
[2023-11-19] MEDS: oxyCODONE 5 MG Tablet PO (21:59)
[2023-11-20] VITALS (7 sets, daily range): BP systolic 146–159; BP diastolic 66–86; PULSE 60–73; RESP 16–18; TEMP 36.2–36.6; O2SAT 92–99
[2023-11-20] MEDS: TACROLIMUS 1 MG 2 MG PO (05:29)
[2023-11-20] MEDS: Gabapentin 600 MG Tablet PO ×2 (05:30→13:11)
[2023-11-20] MEDS: Acetaminophen 325 MG Tablet 650 MG PO (05:30)
[2023-11-20 07:22] LABS: Hematocrit 29.9 % (40-54); Hemoglobin 9.7 g/dL (13.0-16.5); Mean Corp Hgb Conc 32.4 g/dL (32-36); Mean Corpuscular Hgb 29.1 pg (27.0-32.0); Mean Corpuscular Volume 89.8 fL (80-94); Mean Platelet Vol. 11.3 fl (6.2-12.0); Platelet Count 114 K/mm3 (150-450); RBC Distribution Width CV 13.2 % (11.6-14.6); Red Blood Count 3.33 M/mm3 (4.6-6.2); White Blood Count 8.4 K/mm3 (4.4-11.0)
[2023-11-20 07:40] LABS: Anion Gap 7 (5-15); BUN 45 mg/dL (7-18); BUN/Creat Ratio 33.3 RATIO (10-20); Calcium,Total 9.1 mg/dL (8.5-10.1); Chloride 107 mmol/L (98-107); Creatinine, Serum 1.35 mg/dL (0.70-1.30); EST Glomerular Filtration Rate 58 mL/min (>60); Est Glom Filt Rate - Afr Amer 71 mL/min (>60); Estimated Creatinine Clearance 52.38 ml/min; Glucose 112 mg/dL (74-106); Potassium 4.5 mmol/L (3.5-5.1); Sodium Level 140 mmol/L (136-145)
[2023-11-20] MEDS: Aspirin 81 MG TAB.CHEW PO (08:36)
[2023-11-20] MEDS: Pantoprazole Sodium 20 MG Tablet PO (08:36)
[2023-11-20] MEDS: Heparin Injection (Vial) 5,000 UNIT/ML VIAL 5000 UNIT SC (08:36)
[2023-11-20] MEDS: amLODIPine 5 MG Tablet PO (08:36)
[2023-11-20] MEDS: Carvedilol 25 MG Tablet PO (08:37)
[2023-11-20] MEDS: predniSONE 20 MG Tablet 40 MG PO (08:37)
[2023-11-20] MEDS: Doxazosin 4 MG Tablet 8 MG PO (08:38)
[2023-11-20] MEDS: Amox/Clavulanate 875 MG Tablet PO (08:38)
[2023-11-20] MEDS: Atorvastatin Calcium 80 MG Tablet PO (08:38)
[2023-11-20] MEDS: Oseltamivir Phosphate 30 MG Capsule PO (08:39)
--- NOTE | 2023-11-20 11:47 | PN.RENAL_ITS ---
Subjective Subjective Resting in bed. No overnight events. Reports feeling better today. Objective Data Objective Data Vital Signs: Vital Signs Temp Pulse Resp BP Pulse Ox O2 Del Method O2 Flow Rate 97.5 F L 67 18 159/66 H 94 Room Air 1 11/20/23 09:33 11/20/23 09:35 11/20/23 09:33 11/20/23 09:33 11/20/23 10:00 11/20/23 09:33 11/18/23 10:35 Oxygen Flow Rate (L/min) 1 Oxygen Delivery Method Room Air Weight: 62 kg Body Mass Index (BMI) 23.4 Intake & Output: Intake and Output for Last 24 Hours 11/18/23 11/19/23 11/20/23 23:59 23:59 23:59 Intake Total 2708.33 / 2881.66 1323.33 / 1523.33 200 / 200 Output Total 2425 / 2425 2455 / 3155 2975 / 2975 Balance 283.33 / 456.66 -1131.67 / -1631.67 -2775 / -2775 Lab / Micro Data 11/20/23 06:47 11/20/23 06:47 Labs: Laboratory Results - last 24 hr 11/20/23 06:47: WBC 8.4, RBC 3.33 L, Hgb 9.7 L, Hct 29.9 L, MCV 89.8, MCH 29.1, MCHC 32.4, RDW Std Deviation 43.0, RDW Coeff of Adamaris 13.2, Plt Count 114 L, MPV 11.3, Sodium 140, Potassium 4.5, Chloride 107, Carbon Dioxide 26.0, Anion Gap 7, BUN 45 H, Creatinine 1.35 H, Estim Creat Clear Calc 52.38, Est GFR (MDRD) Af Amer 71, Est GFR (MDRD) Non-Af 58 L, BUN/Creatinine Ratio 33.3 H, Glucose 112 H, Calcium 9.1 Micro: Microbiology 11/15/23 07:13 Mucosa - Nose SARS-CoV-2, Influenza & RSV (PCR) - Final Influenzae A Rhythm Strip Rhythm Strip: Sinus Rhythm Rate: 70 Physical Exam Narrative Alert and orient x 3, no apparent distress S1, S2, RRR Lung sounds clear anteriorly, diminished breath sounds posterior bases. Abdomen soft, nontender No pitting edema Assessment & Plan Assessment/Plan (1) Acute kidney injury: PLAN: CKD stage IIIb. Baseline creatinine is between 1.5-2. History of kidney transplant at [facility]. Primary transplant agricultural extension officer is Dr. Miller Acute renal failure is likely volume depletion. Urine sodium was low. With IV fluids alone, creatinine improved. Serum creatinine peaked 3.23, improved to 1.35 mg/dL today. Urine analysis was not impressive. Renal ultrasound with mild hydronephrosis. He had a CT abdomen about 5 years ago and back then he did not have hydronephrosis. Initially he did have some urinary retention. No postvoid bladder scans are negative. Continue to monitor bladder scans. Urine output has been good per patient and states urinating more last few days. Immunosuppression. At home he is on long-acting tacrolimus, CellCept, p rednisone. CellCept is on hold due to influenza pneumonia. Complained of tremors, no longer having tremors. Sent a tacrolimus level which is pending. He was also on Solu-Medrol 40 mg which alone should cover the immunosuppression part, now on prednisone. Acidosis/hyperkalemia. Improved/resolved with IV fluids. Influenza A infection, mild COPD; overall improving Discussed with Dr. Torres, discharge planning for today. Patient to follow-up with his agricultural extension officer/transplant team. (2) Chronic kidney disease: QUALIFIERS: Chronic kidney disease stage: stage 4 (severe) Qualified Code(s): N18.4 - Chronic kidney disease, stage 4 (severe)
[2023-11-20] MEDS: Ipratropium 0.5 MG/2.5 ML SOLUTION INHALATION (11:50)
--- NOTE | 2023-11-20 12:29 | PCM.DC ---
Discharge Instructions Diet Discharge Diet: Renal Diet Activity Discharge Activity: Return to Normal Activity Dressing / Incision Call your doctor if you observe: Fever of 101 or Higher, Shortness of breath, Dizziness, Fainting spells, Swelling in the ankles, Chest pain and Increased palpitations (irregular heartbeat) Follow Up Care Test Results: Test results from this visit will be discussed in further detail at your follow-up appointment, if applicable. Discharge Plan Admission Admit Date/Time: 11/15/23 08:38 Attending Provider: Lalo Torres Primary Care Provider: Diana Tate Consulting Providers: Evelia Marin; Celso Byrd; Oswaldo Capellan Discharge Orders/Prescriptions Prescriptions: New prednisone 20 mg Tablet 40 mg PO BREAKFAST 5 Days Qty: 10 0RF amoxicillin-pot clavulanate 875-125 mg Tablet 1 tab PO BID 3 Days Qty: 6 0RF Continued albuterol sulfate 2.5 mg /3 mL (0.083 %) solution for nebulization 2.5 mg inhalation Q4H PRN (Reason: shortness of breath or wheezing) prednisone 5 mg tablet 5 mg PO DAILY sulfamethoxazole-trimethoprim [Bactrim] 400-80 mg tablet 1 tab PO DAILY Astagraf XL 0.5 mg capsule,extended release 24hr 2 mg PO DAILY Rx Instructions: must administer in the morning on an empty stomach, 1 hour before or 2 hours after a meal mycophenolate mofetil 500 MG tablet 500 mg PO BID Patient Comments: Anti-rejection medication doxazosin [Cardura] 8 MG tablet 8 mg PO DAILY omeprazole 20 MG capsule 20 mg PO DAILY Patient Comments: acid reflux, gastric irritation aspirin 81 MG tablet,chewable 81 mg PO DAILY Patient Comments: blood thinner magnesium oxide [MgO] 400 MG tablet 400 mg PO BID atorvastatin 80 MG tablet 80 mg PO DAILY Patient Comments: carvedilol 25 MG tablet 25 mg PO BID Patient Comments: albuterol sulfate 2.5 mg /3 mL (0.083 %) solution for nebulization 2.5 mg inhalation Q4H PRN PRN (Reason: shortness of breath or wheezing) Qty: 25 0RF Rx Instructions: Use q4 hours and PRN for wheezing amlodipine [Norvasc] 5 mg tablet 5 mg PO DAILY acetaminophen 500 MG tablet 1,000 mg PO Q8 PRN (Reason: fever or pain) albuterol sulfate 1 INHALER inhaler 1 - 2 puff inhalation Q4H PRN PRN (Reason: Shortness Of Breath) Qty: 1 2RF Referrals / Follow Up: Diana Tate, PA [Primary Care Provider] - Within 1 Week Disposition Disposition (needs filled in before D/C Order can be placed): Home, Self Care
--- NOTE | 2023-11-20 13:25 | CASEMGMT ---
Patient has order for discharge. RN CM in to discuss needs at discharge. Patient does not qualify for home oxygen. Patient denies needs or help at discharge. Patient had no further questions or concerns.
--- NOTE | 2023-11-20 14:13 | PHA.DC_ITS ---
Pharmacy [facility] has performed discharge medication reconciliation and counseling for this patient. Patient counseled via telephone due to droplet precautions. Advised patient to hold normal scheduled prednisone while taking 40mg dose then resume 5 mg. 1. AUGMENTIN 875MG 1T PO BID 2. PREDNISONE 40MG PO BREAKFAST X 5 DAYS The patient's discharge medication list was reviewed for discrepancies and discrepancies were resolved. The patient was counseled on the following discharge medications and changes in medications for homegoing were reviewed. The Reason for Use, instructions for use, and potential side effects were reviewed for all new medications. The patient's questions regarding all of their medications were answered. The patient was able to verbally demonstrate an understanding of their discharge medications. Medications at Discharge Home Medications aspirin 81 mg chewable tablet 81 mg PO DAILY health maintenance 02/21/14 doxazosin 8 mg tablet (Cardura) 8 mg PO DAILY BLADDER 02/21/14 mycophenolate mofetil 500 mg tablet 500 mg PO BID ANTI-REJECTION 02/21/14 omeprazole 20 mg capsule,delayed release 20 mg PO DAILY ACID REFLUX 02/21/14 magnesium oxide 400 mg (241.3 mg magnesium) tablet (MgO) 400 mg PO BID SUPPLEMENT 12/25/17 atorvastatin 80 mg tablet 80 mg PO DAILY cholesterol 12/30/17 carvedilol 25 mg tablet 25 mg PO BID blood pressure 12/30/17 albuterol sulfate 2.5 mg/3 mL (0.083 %) solution for nebulization 2.5 mg inhalation Q4H PRN shortness of breath or wheezing 10/03/21 prednisone 5 mg tablet 5 mg PO DAILY 10/04/21 sulfamethoxazole 400 mg-trimethoprim 80 mg tablet (Bactrim) 1 tab PO DAILY 10/04/21 tacrolimus 0.5 mg capsule,extended release 24 hr (Astagraf XL) 2 mg PO DAILY 10/04/21 albuterol sulfate 2.5 mg/3 mL (0.083 %) solution for nebulization 2.5 mg (3 mL) inhalation Q4H PRN PRN shortness of breath or wheezing #25 vials 07/27/22 acetaminophen 500 mg tablet 1,000 mg PO Q8 PRN fever or pain 11/15/23 amlodipine 5 mg tablet (Norvasc) 5 mg PO DAILY 11/15/23 albuterol sulfate 90 mcg/actuation aerosol inhaler 1 - 2 puff inhalation Q4H PRN PRN Shortness Of Breath ##1 11/20/23 amoxicillin 875 mg-potassium clavulanate 125 mg tablet 1 tab PO BID 3 days #6 tabs 11/20/23 prednisone 20 mg tablet 40 mg (2 x 20 mg) PO BREAKFAST 5 days #10 tabs 11/20/23
--- NOTE | 2023-11-20 18:29 | PCM.DC.SUM ---
Providers Date of Admission: 11/15/23 Primary Care Physician: ENIO Gold Consultations 11/16/23 07:58 Consult: Nephrology Routine Consulting Provider: Evelia Marin Reason for Consult: worsening [place] on CKD 4, h/o renal transplants EMERGENT Consult: No Notified: Yes Date Notified: 11/16/23 Time Notified: 09:23 Method of Notification: Text 11/18/23 12:38 Consult: Cardiology Routine Consulting Provider: Celso Byrd Reason for Consult: chest pain, elevated troponins EMERGENT Consult: No Notified: Yes Date Notified: 11/18/23 Time Notified: 12:38 Method of Notification: Text Reason For Visit: INFLUENZA A INFECTION, COPD EXACERBATION Diagnosis Discharge Diagnosis (1) Acute kidney injury: Status: Acute Code(s): N17.9 - Acute kidney failure, unspecified (2) Chronic kidney disease: Status: Chronic Code(s): N18.9 - Chronic kidney disease, unspecified Qualifiers: Chronic kidney disease stage: stage 4 (severe) Qualified Code(s): N18.4 - Chronic kidney disease, stage 4 (severe) Medications at Discharge Home Medications aspirin 81 mg chewable tablet 81 mg PO DAILY health maintenance 02/21/14 doxazosin 8 mg tablet (Cardura) 8 mg PO DAILY BLADDER 02/21/14 mycophenolate mofetil 500 mg tablet 500 mg PO BID ANTI-REJECTION 02/21/14 omeprazole 20 mg capsule,delayed release 20 mg PO DAILY ACID REFLUX 02/21/14 magnesium oxide 400 mg (241.3 mg magnesium) tablet (MgO) 400 mg PO BID SUPPLEMENT 12/25/17 atorvastatin 80 mg tablet 80 mg PO DAILY cholesterol 12/30/17 carvedilol 25 mg tablet 25 mg PO BID blood pressure 12/30/17 albuterol sulfate 2.5 mg/3 mL (0.083 %) solution for nebulization 2.5 mg inhalation Q4H PRN shortness of breath or wheezing 10/03/21 prednisone 5 mg tablet 5 mg PO DAILY 10/04/21 sulfamethoxazole 400 mg-trimethoprim 80 mg tablet (Bactrim) 1 tab PO DAILY 10/04/21 tacrolimus 0.5 mg capsule,extended release 24 hr (Astagraf XL) 2 mg PO DAILY 10/04/21 albuterol sulfate 2.5 mg/3 mL (0.083 %) solution for nebulization 2.5 mg (3 mL) inhalation Q4H PRN PRN shortness of breath or wheezing #25 vials 07/27/22 acetaminophen 500 mg tablet 1,000 mg PO Q8 PRN fever or pain 11/15/23 amlodipine 5 mg tablet (Norvasc) 5 mg PO DAILY 11/15/23 albuterol sulfate 90 mcg/actuation aerosol inhaler 1 - 2 puff inhalation Q4H PRN PRN Shortness Of Breath ##1 11/20/23 amoxicillin 875 mg-potassium clavulanate 125 mg tablet 1 tab PO BID 3 days #6 tabs 11/20/23 prednisone 20 mg tablet 40 mg (2 x 20 mg) PO BREAKFAST 5 days #10 tabs 11/20/23 Hospital Course Operations None Procedures 2-D Echocardiogram Summary of Care Provided Minutes Spent on Discharge: 39 Hospital Course: Per HPI: MARIAN BARROSO, is a 53 M who presented to [facility] ED on 11/15/2023 with multiple concerns including shortness of breath at rest, fevers and chills and muscle aches. Patient seen at bedside on the floor shortly after coming over from the ED. Patient was sitting up in bed, conversing normally, no acute distress. Patient was moderately fatigued appearing and appeared mildly flushed on exam. He was breathing comfortably on 5 L nasal cannula. Patient lives at home with his , has fairly good functional status at baseline. Does have history of COPD secondary to smoking but quit smoking roughly 12 years ago. He does not wear any home oxygen. No history of significant COPD exacerbations. Patient does have a history of kidney failure with kidney transplantation x 2, first in 1993 and again in 2009, currently has CKD stage IV. Patient does take mycophenolate mofetil and tacrolimus for immunosuppression, also takes Bactrim for PCP prophylaxis. Patient also has history of CAD with bypass surgery roughly 20 years ago. Patient states that he was in his normal state of health until about 2 days ago. Since then, he has developed fevers and chills with muscle aches and worsening shortness of breath with mild wheezing at rest. Patient was positive for influenza A in the ED. He reports a mild cough with no sputum production. Patient received a breathing treatment in the ED as well as a dose of IV steroids and states his breathing feels much more comfortable at this time. Was also given a dose of IV morphine and a dose of IV Zofran with improvement in the symptoms as well. Patient currently reports feeling fatigued otherwise denies any other acute pain or discomfort. No other acute concerns this time. Hospital Course: 1. Acute hypoxia with influenza A and a mild COPD exacerbation with concern for superimposed bacterial pneumonia/[place] on CKD 4?53-year-old male with a history of renal transplant presents to the hospital with increased shortness of breath. He tested positive for influenza A and completed 5 days of Tamiflu and was placed on prednisone. Will continue continue prednisone for another 5 days and then can be discontinued without a taper on discharge. Will also continue with 3 more days of Augmentin on discharge to complete his antibiotic course. On the day of discharge he was breathing much better and had an ambulatory pulse ox which did not demonstrate a need for oxygen. I discussed with him the plan for discharge today he expressed understanding of the risk benefits of going home and would like to go today. Of note he is on daily prednisone as well as mycophenolate and asked to graft, as well as a daily Bactrim for prophylaxis. Appreciate nephrology's assistance in his care during his hospitalization 2. Chronic kidney disease stage IV with history of renal transplant in 2010, history of BPH, GERD, neuropathy, chronic anemia, coronary artery disease status post CABG, hypertension, hyperlipidemia chronic medical conditions which complicate his care. His home medications were continued where appropriate. Of note he did have elevated troponins cardiology did not feel were cardiac in origin as he does have vascular disease especially in the setting of CKD 4. Physical Exam Narrative General: Alert, Oriented x3, Cooperative, No apparent distress HEENT: Atraumatic, PERRLA, EOMI, Normocephalic Oral: Moist Mucosa Neck: Supple, No JVD Lungs: Diminished, Normal air movement, No rhonchi, No wheeze, No rales Cardiovascular: Regular rate, Regular Rhythm, Normal S1, Normal S2, No murmurs Abdomen: Soft, Non Tender, Non-Distended, No Hepato-splenomegaly Extremities: No edema, Capillary Refill Less than 3 Seconds Skin: No rashes, No breakdown Musculoskeletal: No Tenderness to Palpation of Joints or Extremities Neurological: No focal neurological deficits, Motor Exam 5/5 strength throughout, Sensory exam intact to light touch and pain Psych/Mental Status: Normal Affect, Appropriate Weight / BMI Weight Weight: 136 lb 10.986 oz Body Mass Index (BMI) 23.4 ABG / Lab / Microbiology Data 11/20/23 06:47 11/20/23 06:47 Laboratory: Laboratory Results - last 24 hr 11/20/23 06:47: WBC 8.4, RBC 3.33 L, Hgb 9.7 L, Hct 29.9 L, MCV 89.8, MCH 29.1, MCHC 32.4, RDW Std Deviation 43.0, RDW Coeff of Adamaris 13.2, Plt Count 114 L, MPV 11.3, Sodium 140, Potassium 4.5, Chloride 107, Carbon Dioxide 26.0, Anion Gap 7, BUN 45 H, Creatinine 1.35 H, Estim Creat Clear Calc 52.38, Est GFR (MDRD) Af Amer 71, Est GFR (MDRD) Non-Af 58 L, BUN/Creatinine Ratio 33.3 H, Glucose 112 H, Calcium 9.1 Microbiology: Microbiology 11/15/23 07:13 Mucosa - Nose SARS-CoV-2, Influenza & RSV (PCR) - Final Influenzae A D/C Instructions Discharge Diet: Renal Diet Call your doctor if you observe: Fever of 101 or Higher, Shortness of breath, Dizziness, Fainting spells, Swelling in the ankles, Chest pain and Increased palpitations (irregular heartbeat) Meaningful Use Info Meaningful Use Diagnoses (Choose all that apply): None applicable Discharge Plan Admission Admit Date/Time: 11/15/23 08:38 Attending Provider: Lalo Torres Primary Care Provider: Diana Tate Consulting Providers: Evelia Marin; Celso Byrd; Oswaldo Capellan Discharge Orders/Prescriptions Prescriptions: New prednisone 20 mg Tablet 40 mg PO BREAKFAST 5 Days Qty: 10 0RF amoxicillin-pot clavulanate 875-125 mg Tablet 1 tab PO BID 3 Days Qty: 6 0RF Continued albuterol sulfate 2.5 mg /3 mL (0.083 %) solution for nebulization 2.5 mg inhalation Q4H PRN (Reason: shortness of breath or wheezing) prednisone 5 mg tablet 5 mg PO DAILY sulfamethoxazole-trimethoprim [Bactrim] 400-80 mg tablet 1 tab PO DAILY Astagraf XL 0.5 mg capsule,extended release 24hr 2 mg PO DAILY Rx Instructions: must administer in the morning on an empty stomach, 1 hour before or 2 hours after a meal mycophenolate mofetil 500 MG tablet 500 mg PO BID Patient Comments: Anti-rejection medication doxazosin [Cardura] 8 MG tablet 8 mg PO DAILY omeprazole 20 MG capsule 20 mg PO DAILY Patient Comments: acid reflux, gastric irritation aspirin 81 MG tablet,chewable 81 mg PO DAILY Patient Comments: blood thinner magnesium oxide [MgO] 400 MG tablet 400 mg PO BID atorvastatin 80 MG tablet 80 mg PO DAILY Patient Comments: carvedilol 25 MG tablet 25 mg PO BID Patient Comments: albuterol sulfate 2.5 mg /3 mL (0.083 %) solution for nebulization 2.5 mg inhalation Q4H PRN PRN (Reason: shortness of breath or wheezing) Qty: 25 0RF Rx Instructions: Use q4 hours and PRN for wheezing amlodipine [Norvasc] 5 mg tablet 5 mg PO DAILY acetaminophen 500 MG tablet 1,000 mg PO Q8 PRN (Reason: fever or pain) albuterol sulfate 1 INHALER inhaler 1 - 2 puff inhalation Q4H PRN PRN (Reason: Shortness Of Breath) Qty: 1 2RF Referrals / Follow Up: Diana Tate PA [Primary Care Provider] - 11/29/23 10:00 am Disposition Disposition (needs filled in before D/C Order can be placed): Home, Self Care Charges/Coding Visit Charges Inpatient E&M: 54489 Disch Hosp >30min
[2023-11-22 06:09] LABS: Tacrolimus (FK506) 6.7 ng/mL (2.0-20.0)
== END 2023-11-20 14:54 | disposition home or self-care (01) | DRG 193 ==
LOC: ED 08:48 → PCU 09:06
PROVIDERS: Internal Medicine Nephrology; Admitting Provider Hospitalist; Emergency Provider Emergency Medicine; PCP Physician Assistant; Visit Provider Family Medicine
DX: J10.08 Influenza due to other identified influenza virus with other specified pneumonia (principal); J96.01 Acute respiratory failure with hypoxia; N17.9 Acute kidney failure, unspecified; I47.20 Ventricular tachycardia, unspecified; E87.20 Acidosis, unspecified; I13.0 Hypertensive heart and chronic kidney disease with heart failure and stage 1 through stage 4 chronic kidney disease, or unspecified chronic kidney disease; N18.4 Chronic kidney disease, stage 4 (severe); I50.30 Unspecified diastolic (congestive) heart failure; N13.30 Unspecified hydronephrosis; N13.8 Other obstructive and reflux uropathy; Z94.0 Kidney transplant status; D69.6 Thrombocytopenia, unspecified; J44.1 Chronic obstructive pulmonary disease with (acute) exacerbation; I73.9 Peripheral vascular disease, unspecified; J44.0 Chronic obstructive pulmonary disease with (acute) lower respiratory infection; D64.9 Anemia, unspecified; I35.0 Nonrheumatic aortic (valve) stenosis; J15.9 Unspecified bacterial pneumonia; E87.5 Hyperkalemia; G62.9 Polyneuropathy, unspecified; I25.10 Atherosclerotic heart disease of native coronary artery without angina pectoris; K21.9 Gastro-esophageal reflux disease without esophagitis; E86.9 Volume depletion, unspecified; R25.1 Tremor, unspecified; R79.89 Other specified abnormal findings of blood chemistry; N40.1 Benign prostatic hyperplasia with lower urinary tract symptoms; R33.8 Other retention of urine; Z11.52 Encounter for screening for COVID-19; Z79.52 Long term (current) use of systemic steroids; Z79.82 Long term (current) use of aspirin; Z79.899 Other long term (current) drug therapy; Z87.891 Personal history of nicotine dependence; Z95.1 Presence of aortocoronary bypass graft
CPT/HCPCS: 36415; 71045; 76776; 80048; 80197; 80202; 81001; 82570; 82607; 82728; 82746; 82803; 82962; 83540; 83550; 83735; 83880; 84145; 84300; 84484; 85025; 85027; 87040; 87631; 93005; 93306; 94640; 94668; 97802; 97803; 99252; 99285; J7030; J7040; J7050; A4216; G0463; J0612; J1940; J2405

== ENCOUNTER 2023-11-28 07:13 | Emergency (ER) | payer BC, SELFPAY ==
[2023-11-28] VITALS (50 sets, daily range): BP systolic 130–166; BP diastolic 52–114; PULSE 53–82; RESP 13–27; TEMP 36.4–37.6; O2SAT 69–100; BMI 22.9
--- NOTE | 2023-11-28 07:22 | EDS_ITS ---
HPI History of Present Illness Chief Complaint: Shortness of Breath Informant: patient Onset/Context/Timing Onset: Days (2) Context: gradual Timing: Continuous Quality: Positive for Dyspnea on exertion Worsened by: Exertion Relieved by: Nothing Associated Symptoms cough and white sputum; Negative for rhinorrhea, post nasal drip, ear pain, fever, sore throat, chills, sweats, clear sputum, yellow sputum or green sputum Chest Pain: Positive for None Narrative Narrative: Patient presents with shortness of breath that has been getting worse over the past 2 days. Patient states he was recently admitted to the hospital for pneumonia. Patient states he finished a course of prednisone and antibiotic. Patient states that his breathing is worse with any exertion. Patient admits to a cough with some thick white sputum. Patient denies any fevers or chills. Patient denies any rhinorrhea or sore throat. Patient denies any chest pain. Patient also admits to some pain over the anterior aspect of his right lower leg. Patient denies any calf pain or tenderness. 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 PE Risk Factors: Positive for Cancer, Prior DVT or PE and Recent immobilization; Negative for OCP + Smoking + > 35, Recent surgery or Recent travel [facility] Medical History Chronic kidney disease, stage 3 Chronic obstructive pulmonary disease (COPD) Claudication Depression DVT (deep venous thrombosis) End stage renal disease GERD (gastroesophageal reflux disease) Hyperhomocystinemia Hyperparathyroidism MCC systemic steroid user Neurogenic bladder VIC (obstructive sleep apnea) Pulmonary embolism PVD (peripheral vascular disease) Home Medications aspirin 81 mg chewable tablet 81 mg PO DAILY health maintenance 02/21/14 [History Last Taken 07/21/19] doxazosin 8 mg tablet (Cardura) 8 mg PO DAILY BLADDER 02/21/14 [History Last Taken 07/21/19] mycophenolate mofetil 500 mg tablet 500 mg PO BID ANTI-REJECTION 02/21/14 [History Last Taken 07/21/19] omeprazole 20 mg capsule,delayed release 20 mg PO DAILY ACID REFLUX 02/21/14 [History Last Taken 07/21/19] magnesium oxide 400 mg (241.3 mg magnesium) tablet (MgO) 400 mg PO BID SUPPLEMENT 12/25/17 [History Last Taken 07/21/19] atorvastatin 80 mg tablet 80 mg PO DAILY cholesterol 12/30/17 [History Last Taken 07/21/19] carvedilol 25 mg tablet 25 mg PO BID blood pressure 12/30/17 [History Last Taken 07/21/19] albuterol sulfate 2.5 mg/3 mL (0.083 %) solution for nebulization 2.5 mg inhalation Q4H PRN shortness of breath or wheezing 10/03/21 [History Last Taken Unknown] prednisone 5 mg tablet 5 mg PO DAILY 10/04/21 [History Last Taken Unknown] sulfamethoxazole 400 mg-trimethoprim 80 mg tablet (Bactrim) 1 tab PO DAILY 10/04/21 [History Last Taken Unknown] tacrolimus 0.5 mg capsule,extended release 24 hr (Astagraf XL) 2 mg PO DAILY 10/04/21 [History Last Taken Unknown] albuterol sulfate 2.5 mg/3 mL (0.083 %) solution for nebulization 2.5 mg (3 mL) inhalation Q4H PRN PRN shortness of breath or wheezing #25 vials 07/27/22 [Rx Last Taken Unknown] acetaminophen 500 mg tablet 1,000 mg PO Q8 PRN fever or pain 11/15/23 [History Last Taken Unknown] amlodipine 5 mg tablet (Norvasc) 5 mg PO DAILY 11/15/23 [History Last Taken Unknown] albuterol sulfate 90 mcg/actuation aerosol inhaler 1 - 2 puff inhalation Q4H PRN PRN Shortness Of Breath ##1 11/20/23 [Rx Last Taken Unknown] amoxicillin 875 mg-potassium clavulanate 125 mg tablet 1 tab PO BID 3 days #6 tabs 11/20/23 [Rx Last Taken Unknown] prednisone 20 mg tablet 40 mg (2 x 20 mg) PO BREAKFAST 5 days #10 tabs 11/20/23 [Rx Last Taken Unknown] azithromycin 250 mg tablet 250 mg PO DAILY #4 TABLETS 11/28/23 [Rx Last Taken Unknown] Allergy/AdvReac Type Severity Reaction Status Date / Time propoxyphene napsylate Allergy Hives Verified 11/28/23 07:19 [From Joel-N] venom-honey bee Allergy Hives Verified 11/28/23 07:19 [bee venom (honey bee)] Family History Father Arthritis Cancer Lung cancer, 1990 CAD (coronary artery disease) Mother CAD (coronary artery disease) Diet 2012 Surgical History History of lung biopsy (~2007) History of renal transplant Renal transplant recipient S/P pericardial window creation (~1991) Social History Smoking Status: Former smoker pack-years: 19 Tobacco: How many years used: 15 ROS ROS ED Constitutional Constitutional ED: Denies chills or fever(s) Eyes Eyes: Denies blurry vision or change in vision ENT ENT ED: Denies rhinorrhea or sore throat Cardiovascular Cardiovascular: Denies chest pain or palpitations Respiratory/Chest Respiratory/Chest: Reports cough and dyspnea Gastrointestinal Gastrointestinal: Denies nausea or vomiting Genitourinary Genitourinary ED: Denies dysuria or hematuria Musculoskeletal Musculoskeletal: Reports back pain; Denies neck pain Integumentary Denies abscess or rash Neurologic Neurologic: Reports headache(s); Denies weakness Allergic/Immunologic Allergic/Immunologic ED: Denies mouth swelling or urticaria EXAM Physical Exam Const Vital Signs: 11/28/23 07:17 11/28/23 07:22 11/28/23 07:22 Temperature 99.6 F H Temperature Source Temporal Pulse Rate 66 Respiratory Rate 20 H Respiratory Effort Short of Breath Respiratory Depth Normal Respiratory Pattern Normal Blood Pressure 158/100 H Blood Pressure Mean 119 Pulse Ox 98 Oxygen Delivery Method Room Air Room Air Oxygen Flow Rate (L/min) 11/28/23 07:59 11/28/23 07:50 11/28/23 07:24 Temperature Temperature Source Pulse Rate 74 71 Respiratory Rate 16 19 H Respiratory Effort Respiratory Depth Respiratory Pattern Normal Blood Pressure Blood Pressure Mean Pulse Ox 99 Oxygen Delivery Method Nasal Cannula Oxygen Flow Rate (L/min) 2 11/28/23 07:30 11/28/23 07:40 11/28/23 07:45 Temperature Temperature Source Pulse Rate 72 78 72 Respiratory Rate 22 H 17 20 H Respiratory Effort Respiratory Depth Respiratory Pattern Blood Pressure 149/75 H 145/79 H Blood Pressure Mean 94 100 Pulse Ox 98 98 99 Oxygen Delivery Method Oxygen Flow Rate (L/min) 11/28/23 07:50 11/28/23 08:00 11/28/23 08:10 Temperature Temperature Source Pulse Rate 73 64 Respiratory Rate 17 16 Respiratory Effort Respiratory Depth Respiratory Pattern Blood Pressure 133/79 H Blood Pressure Mean 97 Pulse Ox 99 99 Oxygen Delivery Method Oxygen Flow Rate (L/min) 11/28/23 08:15 11/28/23 08:20 11/28/23 08:30 Temperature Temperature Source Pulse Rate 63 64 63 Respiratory Rate 16 13 16 Respiratory Effort Respiratory Depth Respiratory Pattern Blood Pressure 141/76 H 137/77 H Blood Pressure Mean 95 93 Pulse Ox 99 99 99 Oxygen Delivery Method Oxygen Flow Rate (L/min) 11/28/23 08:40 11/28/23 08:45 11/28/23 08:45 Temperature Temperature Source Pulse Rate 56 L 61 Respiratory Rate 17 16 Respiratory Effort Respiratory Depth Respiratory Pattern Blood Pressure 139/73 H 139/73 H Blood Pressure Mean 90 90 Pulse Ox 100 100 Oxygen Delivery Method Oxygen Flow Rate (L/min) 11/28/23 08:54 11/28/23 09:00 11/28/23 09:00 Temperature Temperature Source Pulse Rate 71 68 Respiratory Rate 19 H 16 Respiratory Effort Respiratory Depth Respiratory Pattern Blood Pressure 140/52 H 140/52 H Blood Pressure Mean 78 78 Pulse Ox 99 99 Oxygen Delivery Method Oxygen Flow Rate (L/min) 11/28/23 09:11 11/28/23 09:15 11/28/23 09:20 Temperature Temperature Source Pulse Rate Respiratory Rate Respiratory Effort Respiratory Depth Respiratory Pattern Blood Pressure 152/71 H Blood Pressure Mean 93 Pulse Ox 98 99 99 Oxygen Delivery Method Oxygen Flow Rate (L/min) 11/28/23 09:30 11/28/23 09:40 11/28/23 09:45 Temperature Temperature Source Pulse Rate Respiratory Rate Respiratory Effort Respiratory Depth Respiratory Pattern Blood Pressure 133/76 H 155/61 H Blood Pressure Mean 89 87 Pulse Ox 99 100 99 Oxygen Delivery Method Oxygen Flow Rate (L/min) 11/28/23 09:50 11/28/23 10:00 11/28/23 10:10 Temperature Temperature Source Pulse Rate Respiratory Rate Respiratory Effort Respiratory Depth Respiratory Pattern Blood Pressure 141/66 H Blood Pressure Mean 88 Pulse Ox 100 99 100 Oxygen Delivery Method Oxygen Flow Rate (L/min) 11/28/23 10:15 11/28/23 10:20 Temperature Temperature Source Pulse Rate Respiratory Rate Respiratory Effort Respiratory Depth Respiratory Pattern Blood Pressure 140/64 H Blood Pressure Mean 87 Pulse Ox 99 100 Oxygen Delivery Method Oxygen Flow Rate (L/min) Positive well nourished and well developed General Appearance ED: well developed and NAD HEENT Reports moist mucous membranes Neck supple and no JVD Resp normal respiratory effort Auscultation: wheezes expiratory wheezes and throughout Cardio regular rate and regular rhythm Rhythm: abnormal rhythm ectopic beats GI non-tender and non-distended Palpation: soft Extremity Extremity Narrative: There is mild tenderness over the anterior aspect of the right lower leg. There is no calf tenderness or edema. There are no palpable cords noted. Neuro oriented x3, CN's II-XII intact bilaterally and no sensory deficits noted [place] Coma Scale: document GCS findings Spontaneous Obeys Commands Oriented 15 Sensorium / Orientation: alert Speech: speech normal Motor Exam: strength 5/5 throughout Psych mental status grossly normal MDM MDM MDM Narrative Medical decision making narrative: Differential diagnosis includes pulmonary embolism, COPD exacerbation, p neumonia, viral illness, cardiac dysrhythmia, cardiac ischemia, and congestive heart failure. EKG will be obtained to assess for cardiac dysrhythmia and cardiac ischemia. CBC will be obtained to assess for leukocytosis and anemia. Basic metabolic profile will be obtained to assess for electrolyte abnormality and renal functions. D-dimer will be obtained to assess for pulmonary embolism. High-sensitivity troponin will be obtained to assess for cardiac ischemia. BNP will be obtained to assess for congestive heart failure. PT with INR and PTT will be obtained to assess for coagulopathy. CTA of the chest will be obtained to assess for pulmonary embolism. Lab Data Attestation: I reviewed the patient's lab results. Lab results narrative: CBC was reviewed. There is a slight leukocytosis of 11.1. There is a mild anemia with a hemoglobin of 10.5 and hematocrit 33.4. Basic metabolic profile was reviewed. BUN was 34 and creatinine was 1.45. This is consistent with prior results. PT was INR and PTT were reviewed and were within normal limits. D-dimer was reviewed and was elevated at 1.62. High-sensitivity troponin was reviewed and was normal at 50. BNP was reviewed and was only slightly elevated at 159.2. COVID-19 PCR was reviewed and was negative. Influenza PCR was reviewed and was positive for influenza A and negative for influenza B. RSV PCR was reviewed and was negative. Labs: Laboratory Results - last 24 hr 11/28/23 07:28 WBC 11.1 H RBC 3.67 L Hgb 10.5 L Hct 33.4 L MCV 91.0 MCH 28.6 MCHC 31.4 L RDW Std Deviation 45.7 H RDW Coeff of [place] 13.8 Plt Count 128 L MPV 11.3 Immature Gran % (Auto) 0.700 Neut % (Auto) 84.5 H Lymph % (Auto) 6.9 L [place] % (Auto) 7.3 Eos % (Auto) 0.5 Baso % (Auto) 0.1 Absolute Neuts (auto) 9.4 H Absolute Lymphs (auto) 0.76 L Nucleated RBC % 0 PT 13.8 INR 1.1 APTT 24.3 D-Dimer Quant (PE/DVT) 1.62 H* Sodium 142 Potassium 5.0 Chloride 117 H Carbon Dioxide 23.0 Anion Gap 2 L BUN 34 H Creatinine 1.45 H Estim Creat Clear Calc 50.66 Est GFR (MDRD) Af Amer 65 Est GFR (MDRD) Non-Af 54 L BUN/Creatinine Ratio 23.4 H Glucose 94 Calcium 9.4 Troponin I High Sens 50 B-Natriuretic Peptide 159.2 H Radiography Diagnostic Testing: Clinical Impression(s) from Imaging Studies Chest X-Ray 11/28/23 09:05 IMPRESSION: Progressive consolidation in the left lower lobe. Densely calcified posterior left pleural plaques. Electronically Signed: Gabe Nichols MD at 9:34 EST , CTA of the chest was ordered to rule out pulmonary embolism. Despite having a GFR of 54 and having IV fluids, patient refused CTA of the chest because of his history of renal transplant. Since the patient refused CT of the chest, chest x-ray will be ordered to assess for pneumonia and congestive heart failure. There are 2 views. On my independent interpretation, there is progressive consolidation in the left lower lobe. Radiologist also interpreted the x-rays and agrees. EKG Initial EKG: Attestation: I personally reviewed and interpreted this EKG as follows: Interpretation: Sinus Rhythm (With frequent PACs with a rate of 75), RBBB, LAFB and Non-Specific ST Changes Comments: EKG was obtained. On my independent interpretation, it shows normal sinus rhythm with frequent PACs with a rate of 75. CA interval was normal at 154 ms. QRS interval was slightly prolonged at 136 ms. QTc interval was normal at 428 ms. There is left axis deviation at -64. There is a right bundle branch block pattern noted. There is left anterior fascicular block pattern noted. There are nonspecific ST-T wave changes noted. This was unchanged compared to previous EKG dated 11/18/2023. Prior EKG tracings: available for review Prior: Unchanged (11/18/2023) Treatment and Re-Evaluation :: Patient was given a DuoNeb aerosol here. Patient is feeling better on reevaluation. Patient was advised of his findings. Patient was advised that he still could have a pulmonary embolism which could be causing his shortness of breath. Since the patient has worsening infiltrate on his chest x-ray, it could be a secondary bacterial infection. Because of this, patient will be given a dose of Rocephin and Zithromax here. Patient was able to ambulate in the emergency department and maintain oxygen saturation of 94% on room air. Because he is not hypoxic and can ambulate without having desaturations, I feel the patient is stable to be discharged home. Patient was given a prescription for Zithromax. Patient was instructed to follow-up with his primary care physician in 3 to 5 days. Patient was instructed return if worse in any way. Patient understood and was agreeable with the plan. All questions were answered. Discharge Plan Triage Chief Complaint: Shortness of Breath ED Provider: Ganga Hayden Dx/Rx/DC Orders Clinical Impression: Influenza A, Pneumonia Instructions: ED Influenza (Adult), ED Pneumonia (Adult) Prescriptions: New azithromycin [azithromycin] 250 mg tablet 250 mg PO DAILY Qty: 4 0RF No Action albuterol sulfate 2.5 mg /3 mL (0.083 %) solution for nebulization 2.5 mg inhalation Q4H PRN (Reason: shortness of breath or wheezing) prednisone 5 mg tablet 5 mg PO DAILY sulfamethoxazole-trimethoprim [Bactrim] 400-80 mg tablet 1 tab PO DAILY Astagraf XL 0.5 mg capsule,extended release 24hr 2 mg PO DAILY Rx Instructions: must administer in the morning on an empty stomach, 1 hour before or 2 hours after a meal mycophenolate mofetil 500 MG tablet 500 mg PO BID Patient Comments: Anti-rejection medication doxazosin [Cardura] 8 MG tablet 8 mg PO DAILY omeprazole 20 MG capsule 20 mg PO DAILY Patient Comments: acid reflux, gastric irritation aspirin 81 MG tablet,chewable 81 mg PO DAILY Patient Comments: blood thinner magnesium oxide [MgO] 400 MG tablet 400 mg PO BID atorvastatin 80 MG tablet 80 mg PO DAILY Patient Comments: carvedilol 25 MG tablet 25 mg PO BID Patient Comments: albuterol sulfate 2.5 mg /3 mL (0.083 %) solution for nebulization 2.5 mg inhalation Q4H PRN PRN (Reason: shortness of breath or wheezing) Qty: 25 0RF Rx Instructions: Use q4 hours and PRN for wheezing amlodipine [Norvasc] 5 mg tablet 5 mg PO DAILY acetaminophen 500 MG tablet 1,000 mg PO Q8 PRN (Reason: fever or pain) prednisone 20 mg Tablet 40 mg PO BREAKFAST 5 Days Qty: 10 0RF amoxicillin-pot clavulanate 875-125 mg Tablet 1 tab PO BID 3 Days Qty: 6 0RF albuterol sulfate 1 INHALER inhaler 1 - 2 puff inhalation Q4H PRN PRN (Reason: Shortness Of Breath) Qty: 1 2RF Primary Care Provider: Diana Tate Referrals: Diana Tate PA [Primary Care Provider] - 3-5 Days Disposition Disposition: Home, Self Care
--- NOTE | 2023-11-28 07:50 | EKG12_ITS ---
Test Reason : SOB Blood Pressure : / mmHG Vent. Rate : 075 BPM Atrial Rate : 075 BPM P-R Int : 154 ms QRS Dur : 136 ms QT Int : 384 ms P-R-T Axes : 045 -64 -04 degrees QTc Int : 428 ms Sinus rhythm with Premature atrial complexes in a pattern of bigeminy Right bundle branch block Left anterior fascicular block Bifascicular block Abnormal ECG Confirmed by KAITLIN BURT, LANCE ([id number]), editor continuity and script POLY EVANGELISTA ([id number]) on 11/29/2023 10:38:33 AM Referred By: INDU Confirmed By:LANCE MADRIGAL MD
[2023-11-28] MEDS: Ipratropium/Albuterol Sulfate 3 ML AMPUL.NEB INHALATION (07:58)
[2023-11-28 08:05] LABS: Absolute Lymphocyte Count 0.76 X10^3/uL (0.83-4.51); Absolute Neutrophil Count 9.4 X10^3/uL (2.0-7.7); Basophil# 0.01 X10^3/uL; Basophil% 0.1 % (0-1); Eosinophil# 0.06 X10^3/uL; Eosinophils% 0.5 % (0-5); Hematocrit 33.4 % (40-54); Hemoglobin 10.5 g/dL (13.0-16.5); Lymphocyte # 0.76 X10^3/ul (0.83-4.51); Lymphocyte % 6.9 % (19-41); Mean Corp Hgb Conc 31.4 g/dL (32-36); Mean Corpuscular Hgb 28.6 pg (27.0-32.0); Mean Platelet Vol. 11.3 fl (6.2-12.0); Monocyte# 0.81 X10^3/uL; Monocyte% 7.3 % (0-10); NRBC Flagged by Analyzer 0 % (0-5); Neutrophil # 9.37 X10^3/uL (2.7-7.7); Neutrophil % 84.5 % (47-70); Platelet Count 128 K/mm3 (150-450); RBC Distribution Width CV 13.8 % (11.6-14.6); RBC Distribution Width SD 45.7 fl (35.1-43.9); Red Blood Count 3.67 M/mm3 (4.6-6.2); White Blood Count 11.1 K/mm3 (4.4-11.0)
[2023-11-28] MEDS: 0.9% Normal Saline (1000mL) 1,000 ML 1000 ML IV (08:05)
[2023-11-28 08:19] LABS: Anion Gap 2 (5-15); BUN 34 mg/dL (7-18); BUN/Creat Ratio 23.4 RATIO (10-20); Calcium,Total 9.4 mg/dL (8.5-10.1); Chloride 117 mmol/L (98-107); Creatinine, Serum 1.45 mg/dL (0.70-1.30); EST Glomerular Filtration Rate 54 mL/min (>60); Est Glom Filt Rate - Afr Amer 65 mL/min (>60); Estimated Creatinine Clearance 50.66 ml/min; Glucose 94 mg/dL (74-106); Sodium Level 142 mmol/L (136-145); Troponin-I HS 50 pg/mL (3.0-78.0)
[2023-11-28 08:22] LABS: International Normalized Ratio 1.1; Partial Thromboplast Time 24.3 Seconds (24.1-36.2); Prothrombin Time (Protime)PT. 13.8 SECONDS (11.7-14.9)
[2023-11-28 08:31] LABS: BNP,B-Type NATRIURETIC PEPTIDE 159.2 pg/mL (0-100)
[2023-11-28 08:39] LABS: D-Dimer Quantitative (DVT/PE) 1.62 FEU/ug/m (0.27-0.49)
--- NOTE | 2023-11-28 09:05 | RAD_ITS ---
STUDY: X-RAY CHEST REASON FOR EXAM: Male, 53 years old. Cough and dyspnea. TECHNIQUE: PA and lateral views of the chest. COMPARISON: Comparison is made with prior study dated November 15, 2023. FINDINGS: EKG electrodes are seen. A vascular stent is seen in the right subclavian vein/artery. Progressive infiltration in the left lower lobe. Densely calcified posterior left pleural plaques. Sternal cerclage wires and vascular clips are present from a prior sternotomy and coronary artery bypass graft procedure (CABG). Normal mediastinum and vimal. Normal visualized pulmonary arteries. There is atherosclerotic calcification of the aortic arch with tortuosity. There is demineralization of the osseous structures. Normal visualized ribs, clavicles, and shoulders. There is no demonstrated abnormality of the visualized soft tissue structures of the upper abdomen. RAD/Chest PA and Lateral IMPRESSION: Progressive consolidation in the left lower lobe. Densely calcified posterior left pleural plaques. Electronically Signed: Gabe Nichols MD at 9:34 EST ,
[2023-11-28] MEDS: Azithromycin 250 MG Tablet 500 MG PO (12:49)
[2023-11-28] MEDS: Ceftriaxone 2 GM in 0.9% Normal Saline (50mL MB+) 50 ML IV (12:49)
== END 2023-11-28 13:22 | disposition home or self-care (01) ==
PROVIDERS: Emergency Provider Emergency Medicine; PCP Physician Assistant; Visit Provider Emergency Medicine
DX: J10.00 Influenza due to other identified influenza virus with unspecified type of pneumonia (principal); N18.30 Chronic kidney disease, stage 3 unspecified; M79.661 Pain in right lower leg; K21.9 Gastro-esophageal reflux disease without esophagitis; G47.33 Obstructive sleep apnea (adult) (pediatric); Z79.52 Long term (current) use of systemic steroids; Z79.82 Long term (current) use of aspirin; Z79.899 Other long term (current) drug therapy; Z87.891 Personal history of nicotine dependence; Z86.711 Personal history of pulmonary embolism; Z94.0 Kidney transplant status
CPT/HCPCS: 71046; 80048; 83880; 84484; 85025; 85379; 85610; 85730; 87631; 93005; 94640; 96361; 96365; 99284; J7030; J7050

== ENCOUNTER 2024-03-23 10:19 | Emergency (ER) | payer OTHER, SELFPAY ==
[2024-03-23 10:20] VITALS: BP 116/40; PULSE 64; RESP 18; TEMP 36.9; O2SAT 96; BMI 23.0
--- NOTE | 2024-03-23 10:41 | EKG12_ITS ---
Test Reason : COUGH Blood Pressure : / mmHG Vent. Rate : 058 BPM Atrial Rate : 058 BPM P-R Int : 170 ms QRS Dur : 146 ms QT Int : 418 ms P-R-T Axes : 060 -64 -11 degrees QTc Int : 410 ms Sinus bradycardia Right bundle branch block Left anterior fascicular block Bifascicular block Abnormal ECG Confirmed by KAITLIN BURT, LANCE ([id number]), video news editor EDSON PEREIRA ([id number]) on 03/24/2024 11:21:56 AM Referred By: Confirmed By:LANCE MADRIGAL MD
--- NOTE | 2024-03-23 10:43 | ED.VIS.DYS ---
HPI History of Present Illness Chief Complaint: Cough Informant: patient Onset/Context/Timing Onset: Days Context: gradual Timing: Intermittent Quality: Positive for Dyspnea on exertion Current Severity: Mild Maximum Severity: Mild Worsened by: Exertion and Coughing Relieved by: Nothing Associated Symptoms cough Chest Pain: Positive for None Narrative Narrative: 54-year-old male history of COPD not on oxygen. Prior quadruple bypass in 2005. Renal transplants x 2 and femorofemoral bypass. Prior history of PE. States since Saturday he has been mildly short of breath with blood-tinged sputum. Had a low-grade fever 100.1 that went away. Mild cough. No vomiting or diarrhea. He is on no blood thinners besides daily aspirin. 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 Pulmonary embolism Neurogenic bladder Hyperparathyroidism Hyperhomocystinemia GERD (gastroesophageal reflux disease) DVT (deep venous thrombosis) Depression Claudication VIC (obstructive sleep apnea) Chronic obstructive pulmonary disease (COPD) Chronic kidney disease, stage 3 Home Medications ?Medication ?Instructions ?Recorded ?Last Taken ?Type aspirin 81 mg chewable tablet 81 mg PO DAILY health maintenance 02/21/14 07/21/19 History doxazosin 8 mg tablet (Cardura) 8 mg PO DAILY BLADDER 02/21/14 07/21/19 History mycophenolate mofetil 500 mg tablet 500 mg PO BID ANTI-REJECTION 02/21/14 07/21/19 History omeprazole 20 mg capsule,delayed 20 mg PO DAILY ACID REFLUX 02/21/14 07/21/19 History release magnesium oxide 400 mg (241.3 mg 400 mg PO BID SUPPLEMENT 12/25/17 07/21/19 History magnesium) tablet (MgO) atorvastatin 80 mg tablet 80 mg PO DAILY cholesterol 12/30/17 07/21/19 History carvedilol 25 mg tablet 25 mg PO BID blood pressure 12/30/17 07/21/19 History albuterol sulfate 2.5 mg/3 mL 2.5 mg inhalation Q4H PRN 10/03/21 Unknown History (0.083 %) solution for nebulization shortness of breath or wheezing prednisone 5 mg tablet 5 mg PO DAILY 10/04/21 Unknown History sulfamethoxazole 400 1 tab PO DAILY 10/04/21 Unknown History mg-trimethoprim 80 mg tablet (Bactrim) tacrolimus 0.5 mg capsule,extended 2 mg PO DAILY 10/04/21 Unknown History release 24 hr (Astagraf XL) albuterol sulfate 2.5 mg/3 mL 2.5 mg (3 mL) inhalation Q4H PRN 07/27/22 Unknown Rx (0.083 %) solution for nebulization PRN shortness of breath or wheezing #25 vials acetaminophen 500 mg tablet 1,000 mg PO Q8 PRN fever or pain 11/15/23 Unknown History amlodipine 5 mg tablet (Norvasc) 5 mg PO DAILY 11/15/23 Unknown History albuterol sulfate 90 mcg/actuation 1 - 2 puff inhalation Q4H PRN PRN 11/20/23 Unknown Rx aerosol inhaler Shortness Of Breath ##1 amoxicillin 875 mg-potassium 1 tab PO BID 3 days #6 tabs 11/20/23 Unknown Rx clavulanate 125 mg tablet prednisone 20 mg tablet 40 mg (2 x 20 mg) PO BREAKFAST 5 11/20/23 Unknown Rx days #10 tabs azithromycin 250 mg tablet 250 mg PO DAILY #4 TABLETS 11/28/23 Unknown Rx azithromycin 250 mg tablet 250 mg PO DAILY pneumonia 4 days 03/23/24 Unknown Rx (Zithromax) #4 tabs Allergy/AdvReac Type Severity Reaction Status Date / Time propoxyphene napsylate (From Allergy Hives Verified 03/23/24 10:20 Darvocet-N) venom-honey bee (bee venom Allergy Hives Verified 03/23/24 10:20 (honey bee)) Family History Father Arthritis Cancer Lung cancer, 1990 CAD (coronary artery disease) Mother CAD (coronary artery disease) Diet 2012 Surgical History S/P pericardial window creation (~1991) History of lung biopsy (~2007) Renal transplant recipient History of renal transplant Social History Smoking Status: Former smoker pack-years: 19 Tobacco: How many years used: 15 ROS ROS ED ROS Narrative Cough. Shortness of breath. Blood-tinged sputum. No chest pain. No leg swelling. Review of Systems ROS Unobtainable: Denies due to encephalopathy Constitutional Constitutional ED: Reports fever(s); Denies chills Eyes Eyes: Denies blurry vision ENT ENT ED: Denies ear pain Cardiovascular Cardiovascular: Denies chest pain or palpitations Respiratory/Chest Respiratory/Chest: Reports cough, dyspnea and dyspnea on exertion Gastrointestinal Gastrointestinal: Denies abdominal pain, constipation, diarrhea, melena, nausea or vomiting Genitourinary Genitourinary ED: Denies dysuria or hematuria Musculoskeletal Musculoskeletal: Denies arthralgias or back pain Integumentary Denies abscess or Abrasions Neurologic Neurologic: Denies headache(s) Psychiatric Psychiatric: Denies anxiety or depression Endocrine Endocrinology: Denies cold intolerance Hematologic/Lymphatic Hematologic/Lymphatic: Denies easy bleeding, easy bruising or lymphadenopathy Allergic/Immunologic Allergic/Immunologic ED: Denies mouth swelling, tongue swelling or urticaria EXAM Physical Exam Narrative Exam Narrative: Well-appearing 54-year-old male. Vital signs stable afebrile. Pulse ox 96% on room air no signs hypoxia. H EENT exam unremarkable. Neck nontender no JVD. No lymphadenopathy. Lungs clear to auscultation bilaterally. No rales rhonchi or wheezing. Equal symmetrical. Heart regular rate and rhythm 4-6 systolic ejection murmur. He has a history of a murmur. Chest wall and ribs nontender. Abdomen soft nontender. Moving all 4 extremities. Nontender. Minimal swelling right arm which she has had he has a clotted right upper arm old fistula. Back nontender. Neurologically is awake and alert no focal motor deficits. Const Vital Signs: 03/23/24 10:20 03/23/24 10:41 03/23/24 11:17 Temperature 98.4 F Temperature Source Temporal Pulse Rate 64 Respiratory Rate 18 Respiratory Effort Normal Non-Labored Respiratory Depth Normal Respiratory Pattern Normal Blood Pressure 116/40 L Blood Pressure Mean 65 Pulse Ox 96 Oxygen Delivery Method Room Air Room Air 03/23/24 12:19 Temperature Temperature Source Pulse Rate 60 Respiratory Rate 18 Respiratory Effort Respiratory Depth Respiratory Pattern Blood Pressure 124/57 H Blood Pressure Mean 79 Pulse Ox 97 Oxygen Delivery Method Room Air Positive well nourished and well developed; Negative for obese, cachectic, contractures or unkempt General Appearance ED: well developed and NAD; Negative for unkempt, cachectic, contractures or pallor Nutritional Appearance: Negative for cachectic or obese HEENT Reports moist mucous membranes atraumatic; Negative for trauma or tenderness Eyes PERRL and EOMs intact bilaterally General Eye ED: Negative for pale conjunctiva or scleral icterus Neck no lymphadenopathy, supple, no meningeal signs and no JVD General: Negative for tenderness Lymph Lymphatic: Negative for other Chest Wall Chest: Negative for other Resp normal respiratory effort and clear to auscultation bilaterally Effort and Inspection: Negative for pain with movement Auscultation: Negative for rales, rhonchi or wheezes Cardio regular rate, regular rhythm, S1 normal heart sound, S2 normal heart sound and no murmurs Rate: Negative for bradycardia or tachycardic Rhythm: Negative for abnormal rhythm GI non-tender, non-distended and no masses Inspection: Negative for other Auscultation: normoactive bowel sounds Palpation: soft; Negative for tender, guarding or rebound tenderness present Back/Spine no CVA tenderness and normal to inspection General Back: Negative for CVA tenderness Extremity normal to inspection Extremity Narrative: Minimal swelling right arm. Clotted right upper arm fistula in the past. General Extremety ED: Yes edema; Negative for tenderness General Extremity: edema Neuro oriented x3 and CN's II-XII intact bilaterally Sensorium / Orientation: alert, oriented to person, oriented to place and oriented to time; Negative for orientation impaired, confused, lethargic or stuporous Psych mental status grossly normal Appearance: Negative for unkempt Attitude: No agitated and No other Mood & Affect: Negative for depressed, anxious or tearful Thought Process: normal thought process Skin no wounds and skin turgor normal General Skin Exam: Negative for jaundice or pallor Lesions: no lesions Rashes: no rashes Trauma: Negative for abrasion MDM MDM MDM Narrative Medical decision making narrative: 54-year-old male COPD, renal transplant, prior PE. Blood-tinged sputum. Shortness of breath. Lungs clear. Differential would include pneumonia, PE, pulmonary edema excetra. Chest x-ray and labs are pending. Repeat exam patient is doing well. CTA was obtained unfortunately due to the IV placement did not get a good bolus of the contrast. They did not see subclavian thrombus and also superior vena cava. On the right. Patient has a known fistula on the right arm is clotted off for years. He has had prior ultrasound showing chronic clot any new that he had clots in the subclavian. I spoke to my vascular surgeon. We are going to ultrasound his arm but since has had that done and knows it is chronic clot we do not need anticoagulating. Patient be treated for the pneumonia with Zithromax Z-Jean-Pierre. First dose given here in the emergency department. Then once a day for the next 4 days. Follow-up with his primary care provider Herman Tate to ensure he is improving. I have his primary care provider on page to discuss follow-up care with him. Patient is comfortable with plan and discharged home. History & Record Review Discussion w/independent historian: Patient Additional record(s) reviewed:: Prior inpatient record, Prior outpatient record, Prior ED visit and Prior labs Lab Data Attestation: I reviewed the patient's lab results. Lab results narrative: CBC shows a normal white count of 6.5. H&H 9.0 and 20.5. He has baseline anemia. Platelets 78,000. D-dimer is elevated at 1.87. CTA being obtained. Chest x-ray shows right upper lobe lower aspect density may be a pneumonia. He has chronic scarring on the left lower lung and a plaque. It has been seen on prior x-rays. Chemistry shows gap 7. BUN 23 creatinine 1.89 consistent with his chronic kidney disease. Glucose 141. BNP 259. Labs: Laboratory Results - last 24 hr 03/23/24 10:50 WBC 6.5 RBC 3.16 L Hgb 9.0 L Hct 28.5 L MCV 90.2 MCH 28.5 MCHC 31.6 L RDW Std Deviation 44.5 H RDW Coeff of Adamaris 13.4 Plt Count 78 L MPV 11.0 Immature Gran % (Auto) 0.600 Neut % (Auto) 86.9 H Lymph % (Auto) 7.0 L [place] % (Auto) 4.7 Eos % (Auto) 0.5 Baso % (Auto) 0.3 Absolute Neuts (auto) 5.7 Absolute Lymphs (auto) 0.46 L Nucleated RBC % 0 D-Dimer Quant (PE/DVT) 1.87 H* Sodium 138 Potassium 4.2 Chloride 108 H Carbon Dioxide 23.0 Anion Gap 7 BUN 23 H Creatinine 1.89 H Estim Creat Clear Calc 38.41 Est GFR (MDRD) Af Amer 48 L Est GFR (MDRD) Non-Af 40 L BUN/Creatinine Ratio 12.2 Glucose 141 H Calcium 9.4 Troponin I High Sens 18 B-Natriuretic Peptide 259.3 H Radiography Chest X-Ray - ED: 2 View, Read by ED Physician, Mediastinum, Bony Structures, Chronic Changes and Right Infiltrate Diagnostic Testing: Clinical Impression(s) from Imaging Studies Chest X-Ray 03/23/24 10:50 IMPRESSION: Patchy infiltrates in the right upper lobe as well as in the right lower lobe and lingular segment of the left upper lobe superimposed on chronic changes. Pleural calcification. Follow-up recommended. Electronically Signed: Gabe Nichols MD at 11:18 EDT , Chest CTA 03/23/24 11:19 IMPRESSION: No evidence of pulmonary embolism. Right upper lobe infiltrate and mild patchy infiltrates in both lower lobes superimposed on scarring. Densely calcified pleural plaques at the left lung base. Several small nodules are seen in the right lower lobe. Thrombus is seen in the right subclavian vein and proximal portion of the superior vena cava. Electronically Signed: Gabe Nichols MD at 12:54 EDT , Chest x-ray, 2 views, AP and lateral, interpreted by myself shows density changes lower aspect right upper lobe could be a pneumonia. Versus scar tissue. He has chronic scarring in the left lower lobe and a plaque. That is not new and was seen on prior x-rays but the right-sided density appears to be new. This could be consistent with a pneumonia. Rhythm Strip Rhythm Strip: Sinus Rhythm Rate: 58 Ectopy: None EKG Initial EKG: Attestation: I personally reviewed and interpreted this EKG as follows: Interpretation: Sinus Rhythm and No Acute Injury Pattern Comments: Normal sinus rhythm rate of 58 no acute signs of LA nor ischemia. Right bundle branch block. Left anterior fascicular block Discharge Plan Triage Chief Complaint: Cough ED Provider: Dusty Vegas Dx/Rx/DC Orders Clinical Impression: Pneumonia, History of COPD, Hx pulmonary embolism, History of kidney transplant Instructions: ED Pneumonia (Adult) Prescriptions: New azithromycin [Zithromax] 250 mg tablet 250 mg PO DAILY 4 Days Qty: 4 0RF Rx Instructions: start on day 2 of therapy No Action albuterol sulfate 2.5 mg /3 mL (0.083 %) solution for nebulization 2.5 mg inhalation Q4H PRN (Reason: shortness of breath or wheezing) prednisone 5 mg tablet 5 mg PO DAILY sulfamethoxazole-trimethoprim [Bactrim] 400-80 mg tablet 1 tab PO DAILY Astagraf XL 0.5 mg capsule,extended release 24hr 2 mg PO DAILY Rx Instructions: must administer in the morning on an empty stomach, 1 hour before or 2 hours after a meal mycophenolate mofetil 500 MG tablet 500 mg PO BID Patient Comments: Anti-rejection medication doxazosin [Cardura] 8 MG tablet 8 mg PO DAILY omeprazole 20 MG capsule 20 mg PO DAILY Patient Comments: acid reflux, gastric irritation aspirin 81 MG tablet,chewable 81 mg PO DAILY Patient Comments: blood thinner magnesium oxide [MgO] 400 MG tablet 400 mg PO BID atorvastatin 80 MG tablet 80 mg PO DAILY Patient Comments: carvedilol 25 MG tablet 25 mg PO BID Patient Comments: albuterol sulfate 2.5 mg /3 mL (0.083 %) solution for nebulization 2.5 mg inhalation Q4H PRN PRN (Reason: shortness of breath or wheezing) Qty: 25 0RF Rx Instructions: Use q4 hours and PRN for wheezing amlodipine [Norvasc] 5 mg tablet 5 mg PO DAILY acetaminophen 500 MG tablet 1,000 mg PO Q8 PRN (Reason: fever or pain) prednisone 20 mg Tablet 40 mg PO BREAKFAST 5 Days Qty: 10 0RF amoxicillin-pot clavulanate 875-125 mg Tablet 1 tab PO BID 3 Days Qty: 6 0RF albuterol sulfate 1 INHALER inhaler 1 - 2 puff inhalation Q4H PRN PRN (Reason: Shortness Of Breath) Qty: 1 2RF azithromycin [azithromycin] 250 mg tablet 250 mg PO DAILY Qty: 4 0RF Primary Care Provider: Diana Tate Referrals: Diana Tate, PA [Primary Care Provider] - 3-5 Days Activity Restrictions/Additional Instructions: You have a pneumonia. Plenty of fluids and rest. Tylenol for any fever. Follow-up with your primary care provider to ensure you are improving. Take the antibiotic Zithromax 1 pill a day starting tomorrow for 4 more days. It should take care of the pneumonia. Print Language: Swedish Disposition Disposition: Home, Self Care
--- NOTE | 2024-03-23 10:50 | RAD_ITS ---
STUDY: X-RAY CHEST REASON FOR EXAM: Male, 54 years old. Chest pain TECHNIQUE: PA and lateral views of the chest. COMPARISON: Comparison is made with prior study dated November 28, 2023. FINDINGS: EKG electrodes are seen. Patchy infiltrate in the right upper lobe as well as in the lingular segment of the left upper lobe and right lung base. Blunting of both costophrenic angles and hyperinflation. Pleural calcification. Sternal cerclage wires and vascular clips are present from a prior sternotomy and coronary artery bypass graft procedure (CABG). Normal mediastinum and vimal. Normal visualized pulmonary arteries. There is atherosclerotic calcification of the aortic arch with tortuosity. Vascular stents seen in the right subclavian region. Normal visualized thoracic spine. Normal visualized ribs, clavicles, and shoulders. There is no demonstrated abnormality of the visualized soft tissue structures of the upper abdomen. RAD/Chest PA and Lateral IMPRESSION: Patchy infiltrates in the right upper lobe as well as in the right lower lobe and lingular segment of the left upper lobe superimposed on chronic changes. Pleural calcification. Follow-up recommended. Electronically Signed: Gabe Nichols MD at 11:18 EDT ,
[2024-03-23 11:06] LABS: Absolute Lymphocyte Count 0.46 X10^3/uL (0.83-4.51); Absolute Neutrophil Count 5.7 X10^3/uL (2.0-7.7); Basophil# 0.02 X10^3/uL; Basophil% 0.3 % (0-1); Eosinophil# 0.03 X10^3/uL; Eosinophils% 0.5 % (0-5); Hematocrit 28.5 % (40-54); Lymphocyte # 0.46 X10^3/ul (0.83-4.51); Mean Corp Hgb Conc 31.6 g/dL (32-36); Mean Corpuscular Hgb 28.5 pg (27.0-32.0); Mean Corpuscular Volume 90.2 fL (80-94); Monocyte# 0.31 X10^3/uL; Monocyte% 4.7 % (0-10); NRBC Flagged by Analyzer 0 % (0-5); Neutrophil # 5.68 X10^3/uL (2.7-7.7); Neutrophil % 86.9 % (47-70); POSITIVE COUNT YES; POSITIVE DIFFERENTIAL YES; Platelet Count 78 K/mm3 (150-450); RBC Distribution Width CV 13.4 % (11.6-14.6); RBC Distribution Width SD 44.5 fl (35.1-43.9); Red Blood Count 3.16 M/mm3 (4.6-6.2); White Blood Count 6.5 K/mm3 (4.4-11.0)
[2024-03-23 11:13] LABS: D-Dimer Quantitative (DVT/PE) 1.87 FEU/ug/m (0.27-0.49)
[2024-03-23 11:17] VITALS: O2SAT 98
--- NOTE | 2024-03-23 11:19 | CT_ITS ---
STUDY: CTA CHEST REASON FOR EXAM: Male, 54 years old. dyspnea. hemoptysis. elevated d-dimer RADIATION DOSAGE (If Supplied By Facility): CTDIvol = ( 30.55 ) mGy, DLP = ( 423.78 ) mGycm TECHNIQUE: The examination was performed with the intravenous administration of IV 100mL [id number]-[id number]. Post-processing of the angiographic images was performed, with multiplanar reformation and 3D reconstruction. Individualized dose optimization techniques were used for this CT. COMPARISON: Comparison is made with prior chest radiograph done earlier in the day. FINDINGS: Normal enhancement of the main pulmonary artery and right and left pulmonary arteries. Normal enhancement of the bilateral peripheral pulmonary arteries. There is no demonstrated pulmonary embolism. There is atherosclerotic calcification of the aortic arch with tortuosity. There is no demonstrated aortic dissection. A stent is seen within the right subclavian vein and superior aspect of the superior vena cava. This appears to be clotted off. Multiple chest venous collaterals are seen. There are calcifications of the coronary arteries. There are visualized mediastinal lymph nodes, which are within normal size limits, and with normal morphology. Normal hilar regions. Normal visualized trachea and bronchi. The lungs are well expanded. Linear scarring in the right lung apex. Infiltration in the right upper lobe. Patchy infiltrates in the lower lobes slightly worse on the right lung base. Densely calcified left pleural plaques. Several noncalcified nodular densities are seen in the right lower lobe. The largest nodule measures 6.8 mm. Normal chest wall structures. There are mild degenerative changes of thoracic spine. CT/CTA Chest W/WO Contrast IMPRESSION: No evidence of pulmonary embolism. Right upper lobe infiltrate and mild patchy infiltrates in both lower lobes superimposed on scarring. Densely calcified pleural plaques at the left lung base. Several small nodules are seen in the right lower lobe. Thrombus is seen in the right subclavian vein and proximal portion of the superior vena cava. Electronically Signed: Gabe Nichols MD at 12:54 EDT ,
[2024-03-23 11:23] LABS: BNP,B-Type NATRIURETIC PEPTIDE 259.3 pg/mL (0-100)
[2024-03-23 11:26] LABS: Anion Gap 7 (5-15); BUN 23 mg/dL (7-18); BUN/Creat Ratio 12.2 RATIO (10-20); Calcium,Total 9.4 mg/dL (8.5-10.1); Chloride 108 mmol/L (98-107); Creatinine, Serum 1.89 mg/dL (0.70-1.30); EST Glomerular Filtration Rate 40 mL/min (>60); Est Glom Filt Rate - Afr Amer 48 mL/min (>60); Estimated Creatinine Clearance 38.41 ml/min; Glucose 141 mg/dL (74-106); Potassium 4.2 mmol/L (3.5-5.1); Sodium Level 138 mmol/L (136-145); Troponin-I HS 18 pg/mL (3.0-78.0)
[2024-03-23 12:19] VITALS: BP 124/57; PULSE 60; RESP 18; O2SAT 97
[2024-03-23 14:00] VITALS: BP 119/74; PULSE 72; RESP 16; TEMP 36.6; O2SAT 98
[2024-03-23] MEDS: Azithromycin 250 MG Tablet 500 MG PO (14:09)
== END 2024-03-23 14:20 | disposition home or self-care (01) ==
PROVIDERS: Emergency Provider Emergency Medicine; PCP Physician Assistant; Visit Provider Emergency Medicine
DX: J18.9 Pneumonia, unspecified organism (principal); J44.0 Chronic obstructive pulmonary disease with (acute) lower respiratory infection; I82.B21 Chronic embolism and thrombosis of right subclavian vein; N18.30 Chronic kidney disease, stage 3 unspecified; R04.2 Hemoptysis; Z79.82 Long term (current) use of aspirin; Z79.52 Long term (current) use of systemic steroids; Z94.0 Kidney transplant status; Z95.1 Presence of aortocoronary bypass graft; Z95.820 Peripheral vascular angioplasty status with implants and grafts; Z86.711 Personal history of pulmonary embolism; Z87.891 Personal history of nicotine dependence
CPT/HCPCS: 71046; 71275; 80048; 83880; 84484; 85025; 85379; 93005; 99283; Q9967; A4216

== ENCOUNTER 2024-04-26 16:01 | Emergency (ER) | payer OTHER, SELFPAY ==
[2024-04-26] VITALS (17 sets, daily range): BP systolic 117–145; BP diastolic 63–89; PULSE 49–63; RESP 12–22; TEMP 36.6–36.7; O2SAT 96–98; BMI 24.4
--- NOTE | 2024-04-26 16:24 | EKG12_ITS ---
Test Reason : EDEMA Blood Pressure : / mmHG Vent. Rate : 057 BPM Atrial Rate : 057 BPM P-R Int : 132 ms QRS Dur : 140 ms QT Int : 440 ms P-R-T Axes : 053 -65 -04 degrees QTc Int : 428 ms Sinus bradycardia Right bundle branch block Left anterior fascicular block Bifascicular block Abnormal ECG Confirmed by KAITLIN BURT, LANCE ([id number]), state editor POLY EVANGELISTA ([id number]) on 04/28/2024 8:29:17 AM Referred By: Confirmed By:LANCE MADRIGAL MD
[2024-04-26 16:54] LABS: Absolute Lymphocyte Count 0.44 X10^3/uL (0.83-4.51); Absolute Neutrophil Count 3.4 X10^3/uL (2.0-7.7); Basophil# 0.01 X10^3/uL; Basophil% 0.3 % (0-1); Eosinophil# 0.02 X10^3/uL; Eosinophils% 0.5 % (0-5); Hematocrit 27.2 % (40-54); Hemoglobin 8.4 g/dL (13.0-16.5); Lymphocyte # 0.44 X10^3/ul (0.83-4.51); Mean Corp Hgb Conc 30.9 g/dL (32-36); Mean Corpuscular Hgb 28.5 pg (27.0-32.0); Mean Corpuscular Volume 92.2 fL (80-94); Mean Platelet Vol. 10.9 fl (6.2-12.0); Monocyte# 0.14 X10^3/uL; Monocyte% 3.5 % (0-10); NRBC Flagged by Analyzer 0 % (0-5); Neutrophil # 3.36 X10^3/uL (2.7-7.7); Neutrophil % 84.2 % (47-70); POSITIVE COUNT YES; POSITIVE DIFFERENTIAL YES; Platelet Count 83 K/mm3 (150-450); RBC Distribution Width CV 13.9 % (11.6-14.6); RBC Distribution Width SD 46.2 fl (35.1-43.9); Red Blood Count 2.95 M/mm3 (4.6-6.2)
--- NOTE | 2024-04-26 16:59 | RAD_ITS ---
STUDY: XR Chest 2 Views 04/26/2024 5:01 PM REASON FOR EXAM: Male, 54 years old. SOB COMPARISON: 03/23/2024 TECHNIQUE: XR Chest 2 Views FINDINGS: COPD. Right pleural effusion. Right lower lobe infiltrate. Right subclavian stent graft. Median sternotomy wires. Calcified left arm AV fistula. Normal heart size. Normal mediastinum. Normal vimal. Prominent appearing increased interstitial lung markings. Normal visualized pulmonary arteries. There is atherosclerotic calcification of the aortic arch with tortuosity. There are diffuse degenerative changes of the visualized thoracic spine. There is degenerative osteoarthritis of the bilateral shoulders. There are no acute findings of the upper abdomen. RAD/Chest PA and Lateral IMPRESSION: Right pleural effusion and right infiltrate. Electronically Signed: Elijah Dominguez MD at 17:48 EDT ,
--- NOTE | 2024-04-26 17:01 | EX.ED.DYSGE1 ---
HPI History of Present Illness Chief Complaint: Edema Narrative Narrative: Patient presenting today due to concerns for swelling to his right upper extremity, right side of his abdomen, and bilateral lower extremities he has had over the past 2 months that has progressively been worsening. He reports that he takes 20 mg Lasix every other day. He has felt short of breath with exertion over the past 2 months, he was treated for pneumonia about a month ago. He has a past medical history of kidney failure with kidney transplantation x 2, GERD, chronic anemia, CAD s/p CABG, HTN, COPD, HLD. He has a remote history of a PE. He denies fevers, chills, chest pain, abdominal pain, nausea, and vomiting. 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 Pulmonary embolism Neurogenic bladder Hyperparathyroidism Hyperhomocystinemia GERD (gastroesophageal reflux disease) DVT (deep venous thrombosis) Depression Claudication VIC (obstructive sleep apnea) Chronic obstructive pulmonary disease (COPD) Chronic kidney disease, stage 3 Home Medications ?Medication ?Instructions ?Recorded ?Last Taken ?Type aspirin 81 mg chewable tablet 81 mg PO DAILY health maintenance 02/21/14 07/21/19 History doxazosin 8 mg tablet (Cardura) 8 mg PO DAILY BLADDER 02/21/14 07/21/19 History mycophenolate mofetil 500 mg tablet 500 mg PO BID ANTI-REJECTION 02/21/14 07/21/19 History omeprazole 20 mg capsule,delayed 20 mg PO DAILY ACID REFLUX 02/21/14 07/21/19 History release magnesium oxide 400 mg (241.3 mg 400 mg PO BID SUPPLEMENT 12/25/17 07/21/19 History magnesium) tablet (MgO) atorvastatin 80 mg tablet 80 mg PO DAILY cholesterol 12/30/17 07/21/19 History carvedilol 25 mg tablet 25 mg PO BID blood pressure 12/30/17 07/21/19 History albuterol sulfate 2.5 mg/3 mL 2.5 mg inhalation Q4H PRN 10/03/21 Unknown History (0.083 %) solution for nebulization shortness of breath or wheezing sulfamethoxazole 400 1 tab PO DAILY 10/04/21 Unknown History mg-trimethoprim 80 mg tablet (Bactrim) tacrolimus 0.5 mg capsule,extended 2 mg PO DAILY 10/04/21 Unknown History release 24 hr (Astagraf XL) albuterol sulfate 2.5 mg/3 mL 2.5 mg (3 mL) inhalation Q4H PRN 07/27/22 Unknown Rx (0.083 %) solution for nebulization PRN shortness of breath or wheezing #25 vials acetaminophen 500 mg tablet 1,000 mg PO Q8 PRN fever or pain 11/15/23 Unknown History amlodipine 5 mg tablet (Norvasc) 5 mg PO DAILY 11/15/23 Unknown History albuterol sulfate 90 mcg/actuation 1 - 2 puff inhalation Q4H PRN PRN 11/20/23 Unknown Rx aerosol inhaler Shortness Of Breath ##1 Allergy/AdvReac Type Severity Reaction Status Date / Time propoxyphene napsylate (From Allergy Hives Verified 04/26/24 16:02 Darvocet-N) venom-honey bee (bee venom Allergy Hives Verified 04/26/24 16:02 (honey bee)) Family History Father Arthritis Cancer Lung cancer, 1990 CAD (coronary artery disease) Mother CAD (coronary artery disease) Diet 2012 Surgical History History of quadruple bypass S/P pericardial window creation (~1991) History of lung biopsy (~2007) Renal transplant recipient History of renal transplant Social History Smoking Status: Former smoker pack-years: 19 Tobacco: How many years used: 15 ROS ROS ED Constitutional Constitutional ED: Denies chills or fever(s) Cardiovascular Cardiovascular: Denies chest pain or palpitations Respiratory/Chest Respiratory/Chest: Reports dyspnea on exertion; Denies cough Gastrointestinal Gastrointestinal: Denies abdominal pain, nausea or vomiting Musculoskeletal Musculoskeletal: Denies arthralgias or myalgias Integumentary Denies rash Neurologic Neurologic: Denies paresthesias or weakness EXAM Physical Exam Const Vital Signs: 04/26/24 16:02 04/26/24 16:18 04/26/24 17:14 Temperature 98 F Temperature Source Temporal Pulse Rate 57 L 49 L Respiratory Rate 18 16 Respiratory Effort Normal Respiratory Pattern Normal Blood Pressure 118/63 Blood Pressure Mean 81 Pulse Ox 98 98 Oxygen Delivery Method Room Air 04/26/24 17:15 04/26/24 17:30 04/26/24 17:45 Temperature Temperature Source Pulse Rate 51 L 51 L 54 L Respiratory Rate 15 16 16 Respiratory Effort Respiratory Pattern Blood Pressure 131/84 H Blood Pressure Mean 98 Pulse Ox 98 98 98 Oxygen Delivery Method 04/26/24 18:00 04/26/24 18:01 04/26/24 18:15 Temperature Temperature Source Pulse Rate 60 53 L 53 L Respiratory Rate 22 H 15 15 Respiratory Effort Respiratory Pattern Blood Pressure 128/89 H 129/80 H Blood Pressure Mean 102 96 Pulse Ox 97 98 96 Oxygen Delivery Method Room Air 04/26/24 18:30 04/26/24 18:45 04/26/24 19:00 Temperature Temperature Source Pulse Rate 58 L 57 L 60 Respiratory Rate 15 16 13 Respiratory Effort Respiratory Pattern Blood Pressure 129/80 H 132/78 H Blood Pressure Mean 95 94 Pulse Ox 97 97 97 Oxygen Delivery Method 04/26/24 19:15 04/26/24 19:30 04/26/24 19:45 Temperature Temperature Source Pulse Rate 61 59 L 58 L Respiratory Rate 20 H 14 12 Respiratory Effort Respiratory Pattern Blood Pressure 145/85 H Blood Pressure Mean 103 Pulse Ox 98 98 98 Oxygen Delivery Method 04/26/24 20:00 04/26/24 20:15 04/26/24 22:00 Temperature 98.1 F Temperature Source Temporal Pulse Rate 55 L 55 L 63 Respiratory Rate 14 17 13 Respiratory Effort Respiratory Pattern Blood Pressure 140/80 H 117/76 Blood Pressure Mean 99 89 Pulse Ox 98 98 98 Oxygen Delivery Method Room Air Positive well nourished, well developed and no apparent distress General Appearance ED: well developed HEENT Reports normocephalic and head/scalp atraumatic Mouth ED: Yes moist mucous membranes normal Eyes PERRL and EOMs intact bilaterally Neck full ROM and supple Chest Wall inspection of chest normal Resp normal respiratory effort and clear to auscultation bilaterally Cardio regular rate and regular rhythm GI soft to palpation, non-tender, non-distended and no masses Back/Spine normal ROM and normal to inspection Extremity normal to inspection and full ROM Extremity Narrative: Bilateral nonpitting lower extremity edema, edema to the right upper extremity, bilateral DP pulse 2+, right radial pulse 2+ Neuro oriented x3, CN's II-XII intact bilaterally, moves all extremities, no focal motor deficits and no sensory deficits noted Sensorium / Orientation: awake and alert Psych mental status grossly normal and thought process normal Skin no rashes or lesions noted and no wounds MDM MDM MDM Narrative Medical decision making narrative: Patient presenting today due to edema to his bilateral lower extremities and right upper extremity he has had over the past 2 months that has progressively been getting worse. He does take 20 mg Lasix every other day. He called his transplant team and they recommended he come to the emergency department for evaluation. He had a recent echo that showed an EF of 55%. He does have a history of CHF. I did review previous records on clinisync, he also had a recent bilateral upper extremity venous duplex ultrasounds, this showed a DVT of indeterminate age in the R subclavian vein that appears more chronically occluded. He had a CTA of his chest performed about a month ago that was negative for PE. He was treated for pneumonia at that time with azithromycin. Cardiac workup will be obtained, Patient has an acute on chronic kidney failure, I do feel he would benefit from admission to the hospital. He is not on dialysis. Chest x-ray shows right pleural effusion and right infiltrate. Patient treated with IV Rocephin and azithromycin. I will speak with the hospitalist for admission. After speaking with the hospitalist, he recommends transfer to where his kidney transplant team is. I spoke with Dr. Sellers who is his transplant physician, she recommends transfer to main campus. I then spoke with the hospitalist, Dr. Mitchell who is accepting of the patient. She reports that it will be several hours before a bed becomes available. She recommends repeating a BMP in a few hours to trend his potassium level. I also spoke with heel seat laster, Dr. Lindo who recommends obtaining a CT scan of the abdomen and pelvis. Patient remained stable, transfer is pending. CT scan shows distended bladder, he does have a history of chronic bladder outlet obstruction. Bladder scan will be obtained. Lab Data Attestation: I reviewed the patient's lab results. Lab results narrative: WBC 4, H&H 8.4 and 27.2, potassium 5.4, BUN 29, creatinine 2.29, BNP 467. Platelet count 83 Labs: Laboratory Results - last 24 hr 04/26/24 04/26/24 16:42 21:58 WBC 4.0 L RBC 2.95 L Hgb 8.4 L Hct 27.2 L MCV 92.2 MCH 28.5 MCHC 30.9 L RDW Std Deviation 46.2 H RDW Coeff of [place] 13.9 Plt Count 83 L MPV 10.9 Immature Gran % (Auto) 0.500 Neut % (Auto) 84.2 H Lymph % (Auto) 11.0 L [place] % (Auto) 3.5 Eos % (Auto) 0.5 Baso % (Auto) 0.3 Absolute Neuts (auto) 3.4 Absolute Lymphs (auto) 0.44 L Nucleated RBC % 0 Sodium 139 Potassium 5.4 H Chloride 113 H Carbon Dioxide 21.0 Anion Gap 5 BUN 29 H Creatinine 2.29 H Estim Creat Clear Calc 31.70 Est GFR (MDRD) Af Amer 38 L Est GFR (MDRD) Non-Af 32 L BUN/Creatinine Ratio 12.7 Glucose 112 H Calcium 9.3 Troponin I High Sens 16 B-Natriuretic Peptide 467.1 H Urine Color Yellow Urine Clarity Clear Urine pH 6.0 Ur Specific [place] 1.010 Urine Protein 30 H Urine Glucose (UA) Normal Urine Ketones Negative Urine Occult Blood Negative Urine Nitrite Negative Urine Bilirubin Negative Urine Urobilinogen Normal Ur Leukocyte Esterase Negative Urine RBC 0 SEEN Urine WBC 0 SEEN Ur Squamous Epith Cells 0 SEEN Urine Bacteria 0 SEEN Urine Mucus 0 SEEN U Random Total Protein 27.2 H Ur Random Sodium 76 Urine Creatinine 69.90 Protein/Creatinin Ratio 389 H Radiography X-Ray: Read by ED Physician Diagnostic Testing: Clinical Impression(s) from Imaging Studies Chest X-Ray 04/26/24 16:59 IMPRESSION: Right pleural effusion and right infiltrate. Electronically Signed: Elijah Dominguez MD at 17:48 EDT Reading Location ID and State: [facility] / [place] , Service support , Abdomen/Pelvis CT 04/26/24 20:32 IMPRESSION: 1. Limited as above. 2. Grossly satisfactory appearance of left lower quadrant transplant kidney. 3. Distended bladder possible from chronic bladder outlet obstruction. 4. Cannot exclude segments of bowel wall thickening/enteritis/colitis, without oral contrast. 5. Severe calcified vascular disease. 6. Abnormalities in both lung bases as above. Electronically Signed: Yo Block MD at 22:17 EDT , EKG Initial EKG: Comments: 57 bpm, sinus bradycardia, right bundle branch block, no ST elevation, interpreted by attending ED physician Discharge Plan Triage Chief Complaint: Edema ED Midlevel Provider: Ghazal William ED Provider: Atilio Perez Dx/Rx/DC Orders Clinical Impression: Acute on chronic kidney failure, Pneumonia, Thrombocytopenia, Renal transplant, status post, Acute hyperkalemia, Bilateral edema of lower extremity Prescriptions: No Action albuterol sulfate 2.5 mg /3 mL (0.083 %) solution for nebulization 2.5 mg inhalation Q4H PRN (Reason: shortness of breath or wheezing) sulfamethoxazole-trimethoprim [Bactrim] 400-80 mg tablet 1 tab PO DAILY Astagraf XL 0.5 mg capsule,extended release 24hr 2 mg PO DAILY Rx Instructions: must administer in the morning on an empty stomach, 1 hour before or 2 hours after a meal mycophenolate mofetil 500 MG tablet 500 mg PO BID Patient Comments: Anti-rejection medication doxazosin [Cardura] 8 MG tablet 8 mg PO DAILY omeprazole 20 MG capsule 20 mg PO DAILY Patient Comments: acid reflux, gastric irritation aspirin 81 MG tablet,chewable 81 mg PO DAILY Patient Comments: blood thinner magnesium oxide [MgO] 400 MG tablet 400 mg PO BID atorvastatin 80 MG tablet 80 mg PO DAILY Patient Comments: carvedilol 25 MG tablet 25 mg PO BID Patient Comments: albuterol sulfate 2.5 mg /3 mL (0.083 %) solution for nebulization 2.5 mg inhalation Q4H PRN PRN (Reason: shortness of breath or wheezing) Qty: 25 0RF Rx Instructions: Use q4 hours and PRN for wheezing amlodipine [Norvasc] 5 mg tablet 5 mg PO DAILY acetaminophen 500 MG tablet 1,000 mg PO Q8 PRN (Reason: fever or pain) albuterol sulfate 1 INHALER inhaler 1 - 2 puff inhalation Q4H PRN PRN (Reason: Shortness Of Breath) Qty: 1 2RF Primary Care Provider: Diana Tate Referrals: Diana Tate, PA [Primary Care Provider] - Print Language: Nauruan Disposition Disposition: DC/Tx to Another Type of HCF Discharge Location: [facility]
[2024-04-26 17:09] LABS: Anion Gap 5 (5-15); BUN 29 mg/dL (7-18); BUN/Creat Ratio 12.7 RATIO (10-20); Calcium,Total 9.3 mg/dL (8.5-10.1); Chloride 113 mmol/L (98-107); Creatinine, Serum 2.29 mg/dL (0.70-1.30); EST Glomerular Filtration Rate 32 mL/min (>60); Est Glom Filt Rate - Afr Amer 38 mL/min (>60); Glucose 112 mg/dL (74-106); Potassium 5.4 mmol/L (3.5-5.1); Sodium Level 139 mmol/L (136-145); Troponin-I HS 16 pg/mL (3.0-78.0)
[2024-04-26 17:35] LABS: BNP,B-Type NATRIURETIC PEPTIDE 467.1 pg/mL (0-100)
[2024-04-26] MEDS: Ceftriaxone 1 GM/50 ML BAG IV (19:30)
[2024-04-26] MEDS: Azithromycin 500 MG in Dextrose 5%-Water (250mL Bag) 250 ML 250 MG IV (20:20)
--- NOTE | 2024-04-26 20:32 | CT_ITS ---
EXAM: CT ABDOMEN AND PELVIS WITHOUT INTRAVENOUS CONTRAST CLINICAL INDICATION: abdominal distension TECHNIQUE: Helically acquired images were obtained of the abdomen and pelvis without intravenous contrast. This CT exam was performed using one or more of the following dose reduction techniques: automated exposure control, adjustment of the mA and/or kV according to patient size, and/or use of iterative reconstruction technique. RADIATION DOSE: CTDIvol = 7.93 mGy, DLP = 406.37 mGy-cm COMPARISON: No relevant prior studies available. FINDINGS: LIMITATIONS: Exam is limited by improper positioning of patient''s arms resulting in significant streak artifact. LOWER THORAX: Mild cardiomegaly. Previous CABG. Prominent coronary calcifications. Fibrotic changes both lung bases. Bilateral small pleural effusions and/or pleural thickening in the posterior lower lung [place]. Prominent calcified plaque in the posterior left lower hemithorax. ABDOMEN: LIVER: Unremarkable. Homogeneous. GALLBLADDER AND BILE DUCTS: Contracted gallbladder. No gross stones. No gallbladder distention or wall edema. No intra- or extrahepatic biliary ductal dilation. PANCREAS: Unremarkable. No focal cystic mass. SPLEEN: Unremarkable. Normal size without focal cystic or solid mass. ADRENALS: Unremarkable. No nodules. KIDNEYS AND URETERS: Both [place] kidneys have been removed. There is a left lower quadrant transplant kidney with a grossly satisfactory appearance. No hydronephrosis. STOMACH AND BOWEL: Evaluation of the GI tract is limited by absence of oral contrast. Cannot exclude stomach wall thickening. No dilated loops of bowel or evidence for obstruction. Cannot exclude segmental thickening of the her of the small or large bowel. Cannot exclude enteritis or colitis. Moderate diffuse fecal retention. Appendix within normal limits. PELVIS: APPENDIX: No evidence of acute appendicitis. BLADDER: Moderate distention of the bladder. REPRODUCTIVE: Moderate prostate enlargement. ABDOMEN and PELVIS: INTRAPERITONEAL SPACE: Small amounts of free fluid over the liver and spleen. No free air. BONES/JOINTS: A femoral-femoral bypass graft is seen. Cannot determine patency without IV contrast. No suspicious lytic or blastic abnormality. SOFT TISSUES: Unremarkable. No discrete abdominal or pelvic wall hernia. VASCULATURE: There is severe calcific vascular disease. No aneurysm. LYMPH NODES: Unremarkable. No enlarged lymph nodes. CT/Abdomen/Pelvis without Cont IMPRESSION: 1. Limited as above. 2. Grossly satisfactory appearance of left lower quadrant transplant kidney. 3. Distended bladder possible from chronic bladder outlet obstruction. 4. Cannot exclude segments of bowel wall thickening/enteritis/colitis, without oral contrast. 5. Severe calcified vascular disease. 6. Abnormalities in both lung bases as above. Electronically Signed: Yo Block MD at 22:17 EDT ,
--- NOTE | 2024-04-26 21:19 | PN.RENAL_ITS ---
Subjective Subjective discussed with ED staff, full note to follow -renal transplant >10 years -baseline scr ~1.3mg/dL, however scr has been around 1.8mg/dL over the past month -apparently presents to ED with worsening edema -chart reviewed: CTA done in 03/30 shows Thrombus is seen in the right subclavian vein and proximal portion of the superior vena cava in addition to right infitrate -thrombocytopenia has not changed over the past month -renal transplant in 03/30 shows mild hydro of transplant kidney. Plan -CT abdomen/pelvis without contrast -LE duplex to look for DVT -currently not hypoxic hence no immediate need for diuresis -check urinary studies, p/c ratio -check prograf level -continue with MMF/prograf -hold bactrim today given mild hyperkalemia -no need for IVF as patient is not hypotensive -infiltrate on cxr does not appear new -check LFT's, check hypercoagulable states including factor V leiden, protein c/s, antithrombin deficiency,antiphospholipid antibodies and lups anticoagulant. -bmp in am Objective Data Objective Data Vital Signs: Vital Signs Temp Pulse Resp BP Pulse Ox O2 Del Method 98 F 55 L 17 140/80 H 98 Room Air 04/26/24 16:02 04/26/24 20:15 04/26/24 20:15 04/26/24 20:00 04/26/24 20:15 04/26/24 18:01 Oxygen Delivery Method Room Air Weight: 66.678 kg Body Mass Index (BMI) 24.4 Intake & Output: Intake and Output for Last 24 Hours 04/24/24 04/25/24 04/26/24 23:59 23:59 23:59 Intake Total 50 / 50 Balance 50 / 50 Lab / Micro Data 04/26/24 16:42 04/26/24 16:42 Labs: Laboratory Results - last 24 hr 04/26/24 16:42: WBC 4.0 L, RBC 2.95 L, Hgb 8.4 L, Hct 27.2 L, MCV 92.2, MCH 28.5, MCHC 30.9 L, RDW Std Deviation 46.2 H, RDW Coeff of [place] 13.9, Plt Count 83 L, MPV 10.9, Immature Gran % (Auto) 0.500, Neut % (Auto) 84.2 H, Lymph % (Auto) 11.0 L, [place] % (Auto) 3.5, Eos % (Auto) 0.5, Baso % (Auto) 0.3, Absolute Neuts (auto) 3.4, Absolute Lymphs (auto) 0.44 L, Nucleated RBC % 0, Sodium 139, P otassium 5.4 H, Chloride 113 H, Carbon Dioxide 21.0, Anion Gap 5, BUN 29 H, C reatinine 2.29 H, Estim Creat Clear Calc 31.70, Est GFR (MDRD) Af Amer 38 L, Est GFR (MDRD) Non-Af 32 L, BUN/Creatinine Ratio 12.7, Glucose 112 H, Calcium 9.3, Troponin I High Sens 16, B-Natriuretic Peptide 467.1 H Radiography Diagnostic Testing: Radiology Impression Chest X-Ray 04/26/24 16:59 IMPRESSION: Right pleural effusion and right infiltrate. Electronically Signed: Elijah Dominguez MD at 17:48 EDT Reading Location ID and State: [facility] / [place] , Service support ,
[2024-04-26 22:06] LABS: Bacteria 0 SEEN /hpf (None Seen); Mucous, Urine 0 SEEN /hpf (<or=2+); Red Blood Cells-Urine 0 SEEN /hpf (0-5); Squamous Epithelial Cells - UA 0 SEEN /hpf (0-5); White Blood Cells 0 SEEN /hpf (0-5)
[2024-04-26 22:19] LABS: Color, Urine Yellow (Yellow); Glucose, Dipstick Normal (Normal); Ketone-Dipstick Negative (Negative); Leukocyte Esterase-Dipstick Negative /ul (Negative); Nitrite-Dipstick Negative (Negative); Occult Blood-Urine Negative /ul (Negative); Protein-Dipstick 30 mg/dl (Negative); Urine Bilirubin Dipstick Negative (Negative); Urine Clarity Clear (Clear); Urine Urobilinogen Normal (Normal)
[2024-04-26 22:24] LABS: Protein, Urine (Random) 27.2 mg/dL (<11.9); Protein:Creat Ratio 389 mg/g CRE (0-200); Urine Sodium 76 mmol/L (Not Establ.)
[2024-04-26 23:12] LABS: Anion Gap 4 (5-15); BUN 29 mg/dL (7-18); BUN/Creat Ratio 12.1 RATIO (10-20); Calcium,Total 8.8 mg/dL (8.5-10.1); Chloride 113 mmol/L (98-107); EST Glomerular Filtration Rate 30 mL/min (>60); Est Glom Filt Rate - Afr Amer 36 mL/min (>60); Estimated Creatinine Clearance 30.25 ml/min; Glucose 163 mg/dL (74-106); Potassium 5.2 mmol/L (3.5-5.1); Sodium Level 139 mmol/L (136-145)
[2024-04-27] VITALS: BP 96/59; PULSE 57; RESP 18; TEMP 36.9; O2SAT 98
[2024-04-27 00:13] VITALS: BP 120/71; PULSE 58; RESP 17; TEMP 36.9; O2SAT 98
[2024-04-29 18:10] LABS: Tacrolimus (FK506) 4.8 ng/mL (2.0-20.0)
[2024-05-04 15:08] LABS: Anti-Cardiolipin Ab, IgG, Qn < 9 GPL U/mL (0-14); Anti-Cardiolipin Ab, IgM, Qn < 9 MPL U/mL (0-12); Antithrombin 3 Function 111 % (75-135); Beta-2-Glycoprotein I IgA <9 (0-25); Beta-2-Glycoprotein I IgG <9 (0-20); Beta-2-Glycoprotein I IgM <9 (0-32); Protein C Antigen 67 % (60-150); Protein C, Functional 80 % (73-180)
== END 2024-04-27 01:11 | disposition short-term general hospital (02) ==
PROVIDERS: Internal Medicine; Physician Assistant; Emergency Provider Emergency Medicine; PCP Physician Assistant; Visit Provider Emergency Medicine
DX: N17.9 Acute kidney failure, unspecified (principal); I13.2 Hypertensive heart and chronic kidney disease with heart failure and with stage 5 chronic kidney disease, or end stage renal disease; I50.9 Heart failure, unspecified; J44.9 Chronic obstructive pulmonary disease, unspecified; I82.B11 Acute embolism and thrombosis of right subclavian vein; N18.30 Chronic kidney disease, stage 3 unspecified; M79.89 Other specified soft tissue disorders; Z94.0 Kidney transplant status; N32.89 Other specified disorders of bladder; E78.5 Hyperlipidemia, unspecified; N32.0 Bladder-neck obstruction; E87.5 Hyperkalemia; D69.6 Thrombocytopenia, unspecified; J18.9 Pneumonia, unspecified organism; K21.9 Gastro-esophageal reflux disease without esophagitis; I25.10 Atherosclerotic heart disease of native coronary artery without angina pectoris; Z87.891 Personal history of nicotine dependence; Z95.1 Presence of aortocoronary bypass graft; Z79.899 Other long term (current) drug therapy
CPT/HCPCS: 51702; 71046; 74176; 80048; 80197; 81001; 81240; 81241; 82570; 83880; 84156; 84300; 84484; 85025; 85300; 85302; 85303; 86146; 86147; 93005; 96365; 96366; 96367; 99285; J7040; A4216

== ENCOUNTER 2024-05-18 20:07 | Inpatient (IN) | payer OTHER, SELFPAY ==
[2024-05-18 20:08] VITALS: BP 115/65; PULSE 88; RESP 18; TEMP 38.7; O2SAT 97; BMI 22.4
[2024-05-18] MEDS: Ibuprofen 600 MG Tablet PO (22:41)
[2024-05-18] MEDS: Morphine 4 MG/ML Syringe IV (22:41)
[2024-05-18] MEDS: 0.9% Normal Saline (500mL Bag) 500 ML 999 ML IV (22:41)
[2024-05-18] MEDS: Ondansetron 4 MG/2 ML Vial IV (22:41)
[2024-05-18 22:44] LABS: Absolute Lymphocyte Count 0.39 X10^3/uL (0.83-4.51); Absolute Neutrophil Count 1.8 X10^3/uL (2.0-7.7); Basophil# 0.01 X10^3/uL; Basophil% 0.4 % (0-1); Hematocrit 26.9 % (40-54); Hemoglobin 8.4 g/dL (13.0-16.5); Lymphocyte # 0.39 X10^3/ul (0.83-4.51); Lymphocyte % 14.6 % (19-41); Mean Corp Hgb Conc 31.2 g/dL (32-36); Mean Corpuscular Hgb 28.2 pg (27.0-32.0); Mean Corpuscular Volume 90.3 fL (80-94); Mean Platelet Vol. 10.1 fl (6.2-12.0); Monocyte# 0.45 X10^3/uL; Monocyte% 16.8 % (0-10); NRBC Flagged by Analyzer 0 % (0-5); Neutrophil # 1.75 X10^3/uL (2.7-7.7); Neutrophil % 65.2 % (47-70); POSITIVE DIFFERENTIAL YES; Platelet Count 108 K/mm3 (150-450); RBC Distribution Width CV 13.4 % (11.6-14.6); RBC Distribution Width SD 43.8 fl (35.1-43.9); Red Blood Count 2.98 M/mm3 (4.6-6.2); White Blood Count 2.7 K/mm3 (4.4-11.0)
[2024-05-18 22:45] VITALS: BP 115/70; PULSE 87; RESP 16; TEMP 37.4; O2SAT 97
[2024-05-18 22:52] LABS: Differential Indicated SCAN CRITERIA MET; Erythrocyte Sedimentation Rate < 1 mm/hr (0-20)
[2024-05-18 23:00] LABS: Anion Gap 6 (5-15); BUN 45 mg/dL (7-18); BUN/Creat Ratio 14.7 RATIO (10-20); Calcium,Total 9.7 mg/dL (8.5-10.1); Chloride 99 mmol/L (98-107); Creatinine, Serum 3.06 mg/dL (0.70-1.30); EST Glomerular Filtration Rate 23 mL/min (>60); Est Glom Filt Rate - Afr Amer 27 mL/min (>60); Estimated Creatinine Clearance 23.61 ml/min; Glucose 93 mg/dL (74-106); Sodium Level 132 mmol/L (136-145)
--- NOTE | 2024-05-18 23:05 | RAD_ITS ---
INDICATION: cough EXAMINATION/TECHNIQUE: X-RAY - XR Chest 2 Views COMPARISON: No relevant prior comparison study available FINDINGS: LINES/DEVICES: None. LUNGS: Small left pleural effusion. Calcified pleural plaques are noted bilaterally. MEDIASTINUM AND CARDIOVASCULAR STRUCTURES: Cardiac silhouette not enlarged. Central airways and mediastinal contour are unremarkable. BONES AND SOFT TISSUES: Unremarkable. RAD/Chest PA and Lateral IMPRESSION: Small left pleural effusion. Calcified pleural plaques are noted bilaterally. Electronically Signed: Estephania Luque MD at 23:39 EDT ,
[2024-05-18 23:09] LABS: Procalcitonin 0.25 ng/mL (0.00-0.09)
[2024-05-18 23:11] LABS: Lactic Acid 1.1 mmol/L (0.4-1.9)
[2024-05-18 23:35] LABS: Differential Comment SCANNED
[2024-05-18 23:56] VITALS: BP 95/53; PULSE 74; RESP 18; TEMP 37.8; O2SAT 98
[2024-05-19] VITALS (60 sets, daily range): BP systolic 48–113; BP diastolic 18–86; PULSE 54–71; RESP 14–30; TEMP 36–37.2; O2SAT 89–100; BMI 21.8; BMI 21.9
[2024-05-19 00:08] LABS: Bacteria 0 SEEN /hpf (None Seen); Mucous, Urine 0 SEEN /hpf (<or=2+); Red Blood Cells-Urine 0 SEEN /hpf (0-5); Squamous Epithelial Cells - UA 0 SEEN /hpf (0-5)
[2024-05-19 00:12] LABS: Color, Urine Yellow (Yellow); Glucose, Dipstick Normal (Normal); Ketone-Dipstick Negative (Negative); Leukocyte Esterase-Dipstick 100 /ul (Negative); Nitrite-Dipstick Negative (Negative); Occult Blood-Urine Negative /ul (Negative); Protein-Dipstick 30 mg/dl (Negative); Urine Bilirubin Dipstick Negative (Negative); Urine Clarity Clear (Clear); Urine Urobilinogen Normal (Normal); Urine pH 6.5 (5.0 - 8.0)
[2024-05-19] MEDS: Piperacil/Tazobactam 3.375 GM in 0.9% Normal Saline (50mL MB+) 50 ML IV ×3 (00:21→16:51)
--- NOTE | 2024-05-19 00:24 | ED.RN ---
Page sent out for Dr Sellers through call center.
[2024-05-19 00:28] LABS: White Blood Cells 0-5 SEEN /hpf (0-5)
[2024-05-19] MEDS: Vancomycin IV 1,000 MG/200 ML BAG 200 MG IV (01:00)
--- NOTE | 2024-05-19 01:17 | ED.RN ---
Pt called out because he was profusely sweating and stated I don't feel right. This RN immediately went and got Dr Hines due to just starting the vancomycin infusion and wanted to ensure it was not a reaction. Dr Hines instructed to stop the vancomycin. This RN stopped the vancomycin and charted the waste. This RN educated the patients on s/s of reactions to this antibiotic.
[2024-05-19] MEDS: 0.9% Normal Saline (500mL Bag) 500 ML 999 ML IV (02:02)
--- NOTE | 2024-05-19 02:08 | CT_ITS ---
STUDY: CT CHEST, ABDOMEN T PELVIS WITHOUT CONTRAST REASON FOR EXAM: Male, 54 years old. chest pain RADIATION DOSAGE (If Supplied By Facility): CTDIvol = ( 7.97 ) mGy, DLP = ( 843.18 ) mGycm TECHNIQUE: Transaxial imaging was performed without the administration of intravenous contrast material. The protocol utilizes one or more of the following dose reduction techniques: automated exposure control, adjustment of mA and/or kV according to patient size,and/or use of iterative reconstruction technique. COMPARISON: CT Abdomen/PelvisJul 2023 9:34pm FINDINGS: CHEST Prominent calcified plaque in the posterior left lower hemithorax. There is a small left pleural effusion. There is an ill-defined nodule in the superior segment of the right lower lobe measures 7 mm has nonspecific appearance, axial image 41, series 2. A follow-up in 6 months would be helpful to ensure stability. Normal heart and pericardium. Previous CABG. Prominent coronary calcifications. Normal mediastinum. Normal hilar regions. Normal unenhanced pulmonary arteries. Normal aorta arch and descending thoracic aorta. Normal osseous structures. There is no demonstrated abnormality of the visualized upper abdomen. ABDOMEN LIVER: Unremarkable. Homogeneous. GALLBLADDER AND BILE DUCTS: Normal gallbladder. No gross stones. No gallbladder distention or wall edema. No intra- or extrahepatic biliary ductal dilation. PANCREAS: Unremarkable. No focal cystic mass. SPLEEN: Unremarkable. Normal size without focal cystic or solid mass. ADRENALS: Unremarkable. No nodules. KIDNEYS AND URETERS: Both [place] kidneys have been removed. There is a left lower quadrant transplant kidney with a grossly satisfactory appearance. No hydronephrosis. STOMACH AND BOWEL: Evaluation of the GI tract is limited by absence of oral contrast. Cannot exclude stomach wall thickening. No dilated loops of bowel or evidence for obstruction. Moderate diffuse fecal retention. Appendix within normal limits. PELVIS: APPENDIX: Normal endplates. BLADDER: Moderate distention of the bladder. REPRODUCTIVE: Moderate prostate enlargement. ABDOMEN and PELVIS: INTRAPERITONEAL SPACE: Small amounts of free fluid over the liver and spleen. No free air. BONES/JOINTS: A femoral-femoral bypass graft is seen. Cannot determine patency without IV contrast. No suspicious lytic or blastic abnormality. SOFT TISSUES: Unremarkable. No discrete abdominal or pelvic wall hernia. VASCULATURE: There is severe calcific vascular disease. No aneurysm. LYMPH NODES: Unremarkable. No enlarged lymph nodes. CT/CT Chest, Abd, Pelvis WO Cont IMPRESSION: There is an ill-defined nodule in the superior segment of the right lower lobe measures 7 mm has nonspecific appearance, axial image 41, series 2. A follow-up in 6 months would be helpful to ensure stability. Electronically Signed: Estephania Luque MD at 4:12 EDT ,
--- NOTE | 2024-05-19 02:35 | PCM.HP.STD ---
[facility] - General General Date of Admission: 05/19/24 Date of Service: 05/19/24 Chief Complaint: Fever and Hypotension. HPI Narrative MARIAN KOCH, is a 54 M with a past medical history of essential hypertension, hyperlipidemia, CAD; s/p CABG x 4, history of pericardial window (~1991), history of diastolic CHF; with preserved LVEF, history of renal transplant x 2 (Right ~1993; with removal in 2000 & Left 2009); on Mycophenolate Mofetil, Tacrolimus and Prednisone, remote history of DVT/PE, history of thrombus if Right Subclavian vein and the proximal portion of the SVC, PVD; s/p Fem-Pop at [facility] (2018), history of Tobacco Abuse; with subsequent COPD, VIC, Chronic Anemia, Neurogenic Bladder, history of Hyperparathyroidism, GERD, history of Depression and OA who presents to [facility] ER complaining of fever and hypotension. Mr. Koch reports his symptoms began approximately six hours prior to arrival while he was driving back from [place], [place] when he began to feel very cold so he turned his heater up to 83 degrees. He then began to feel severe malaise and generalized weakness followed by facial flushing with him then spiking a temperature of 101.6 degrees Fahrenheit confirmed in the ER. He admits his only sick contact was his granddaughter who developed a viral URI - but that was in May 08, 2024 and he has been fine up until now. He also admits to a generalized headache - which he states is very unusual for him. He denies related neck pain, chest pain, SOB, abdominal pain, dysuria or rash - but he does admit that he thinks he might be rejecting his transplanted kidney. In the ER he was noted to have signs of sepsis with fever up to 101.6 degrees Fahrenheit complicated by clinical evidence of hypotension with blood pressure of ~85 mmHg systolic with Leukopenia of 2.7K present on admission with no obvious source of infection but with an elevated C-RP of 13.7 mg/L and an elevated Procalcitonin of 0.25 ng/mL with the transplant physician on-call at his tertiary care center declining transfer to their facility at this time until a source can be clearly identified complicated by laboratory evidence of [place]; with elevated creatinine of 3.06 mg/dL (up from 2.4 mg/dL on 04/26/2024) and he was then admitted to the ICU for treatment under the Sepsis protocol on empiric IV Zosyn for a stay that is expected to extend beyond 2 midnights. 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 Pulmonary embolism Neurogenic bladder Hyperparathyroidism Hyperhomocystinemia GERD (gastroesophageal reflux disease) DVT (deep venous thrombosis) Depression Claudication VIC (obstructive sleep apnea) Chronic obstructive pulmonary disease (COPD) Chronic kidney disease, stage 3 Home Medications ?Medication ?Instructions ?Recorded ?Last Taken ?Type aspirin 81 mg chewable tablet 81 mg PO DAILY health maintenance 02/21/14 07/21/19 History doxazosin 8 mg tablet (Cardura) 8 mg PO DAILY BLADDER 02/21/14 07/21/19 History mycophenolate mofetil 500 mg tablet 500 mg PO BID ANTI-REJECTION 02/21/14 07/21/19 History omeprazole 20 mg capsule,delayed 20 mg PO DAILY ACID REFLUX 02/21/14 07/21/19 History release magnesium oxide 400 mg (241.3 mg 400 mg PO BID SUPPLEMENT 12/25/17 07/21/19 History magnesium) tablet (MgO) atorvastatin 80 mg tablet 80 mg PO DAILY cholesterol 12/30/17 07/21/19 History carvedilol 25 mg tablet 25 mg PO BID blood pressure 12/30/17 07/21/19 History tacrolimus 0.5 mg capsule,extended 2 mg PO DAILY 10/04/21 Unknown History release 24 hr (Astagraf XL) acetaminophen 500 mg tablet 1,000 mg PO Q8 PRN fever or pain 11/15/23 Unknown History amlodipine 5 mg tablet (Norvasc) 5 mg PO DAILY 11/15/23 Unknown History albuterol sulfate 90 mcg/actuation 1 - 2 puff inhalation Q4H PRN PRN 11/20/23 Unknown Rx aerosol inhaler Shortness Of Breath ##1 ferrous sulfate 325 mg (65 mg 325 mg PO DAILY 05/19/24 Unknown History iron) tablet furosemide 40 mg tablet 40 mg PO DAILY 05/19/24 Unknown History gabapentin 300 mg capsule 300 mg PO TID PRN pain 05/19/24 Unknown History ipratropium 0.5 mg-albuterol 3 mg 3 ml inhalation Q6H PRN PRN 05/19/24 Unknown History (2.5 mg base)/3 mL nebulization wheezing soln prednisone 5 mg tablet 5 mg PO DAILY 05/19/24 Unknown History Allergy/AdvReac Type Severity Reaction Status Date / Time propoxyphene napsylate (From Allergy Hives Verified 05/18/24 20:11 Darvocet-N) venom-honey bee (bee venom Allergy Hives Verified 05/18/24 20:11 (honey bee)) Family History Father Arthritis Cancer Lung cancer, 1990 CAD (coronary artery disease) Mother CAD (coronary artery disease) Diet 2012 Surgical History History of quadruple bypass S/P pericardial window creation (~1991) History of lung biopsy (~2007) Renal transplant recipient History of renal transplant Social History Smoking Status: Former smoker pack-years: 19 Tobacco: How many years used: 15 ROS ROS Narrative Review of systems: General: Patient admits to fever and chills as noted above in HPI. HENT: Patient admits to tension type headache that he denies stuffy nose or sore throat EYES: Denies changes in vision or discharge from eyes. Resp: Denies cough, denies shortness of breath Cardiac: Denies chest pain, palpitations or heart racing. GI: Denies abdominal pain, denies changes in bowel, denies nausea or vomiting. : Denies changes in urination Extremity: Denies swelling Musculoskeletal: Feels somewhat generally weak and unwell but denies arthralgias or myalgias. Neuro: Patient admits to headache but denies paresthesias, seizures or focal neurologic deficits. Heme: Denies any bleeding or bruising Skin: Denies rashes Psychiatric: No complaints voiced related to uncontrolled depression or anxiety. Endocrine: No polyuria, polydipsia or polyphagia. The rest of the 14 point ROS was negative except for positives in HPI. Vital Signs Vital Signs Vital Signs: 05/18/24 20:08 05/18/24 20:44 05/18/24 22:45 Temperature 101.6 F H 99.3 F H Temperature Source Temporal Oral Pulse Rate 88 87 Respiratory Rate 18 16 Respiratory Effort Normal Non-Labored Respiratory Pattern Normal Blood Pressure 115/65 115/70 Blood Pressure Mean 81 85 Pulse Ox 97 97 Oxygen Delivery Method Room Air 05/18/24 23:56 05/19/24 00:51 05/19/24 00:51 Temperature 100.1 F H 98.9 F 98.9 F Temperature Source Oral Oral Oral Pulse Rate 74 67 Respiratory Rate 18 19 H Respiratory Effort Respiratory Pattern Blood Pressure 95/53 L 111/71 Blood Pressure Mean 67 84 Pulse Ox 98 97 Oxygen Delivery Method Room Air Room Air 05/19/24 01:55 05/19/24 01:55 05/19/24 02:00 Temperature 98.6 F 98.6 F Temperature Source Oral Oral Pulse Rate 71 64 Respiratory Rate 16 16 Respiratory Effort Respiratory Pattern Blood Pressure 86/44 L 96/57 L 96/57 L Blood Pressure Mean 58 70 70 Pulse Ox 99 99 Oxygen Delivery Method Room Air Room Air 05/19/24 02:20 05/19/24 02:24 Temperature 98.6 F Temperature Source Pulse Rate 68 Respiratory Rate 18 Respiratory Effort Respiratory Pattern Blood Pressure 88/56 L 88/56 L Blood Pressure Mean 66 66 Pulse Ox 100 Oxygen Delivery Method Weight Weight: 134 lb 14.4 oz Body Mass Index (BMI) 22.4 Physical Exam Const alert, oriented x3, no apparent distress and average body habitus General Appearance: cooperative HEENT normocephalic, head/scalp atraumatic, hearing grossly normal bilaterally and moist oral mucous membranes Eyes PERRL and EOMs intact bilaterally Neck no lymphadenopathy and supple Resp normal respiratory effort, no retractions, no use of accessory muscles and clear to auscultation bilaterally Cardio regular rate and regular rhythm GI normal to inspection, nondistended, normoactive bowel sounds, soft to palpation, non-tender and non-distended Extremity normal to inspection, full ROM and no clubbing, cyanosis or edema Skin Skin Narrative: Patient has evidence of facial flushing but no rash, abscess or jaundice at this time. Neuro oriented x3, CN's II-XII intact bilaterally, moves all extremities and no focal motor deficits Sensorium / Orientation: awake, alert, oriented to person, oriented to place and oriented to time Speech: speech normal Psych affect normal Results Medical Records Data Attestation: I reviewed the patient's medical records Lab / Micro Data Attestation: I reviewed the patient's lab results. 05/18/24 22:27 05/18/24 22:27 Labs: Laboratory Results - last 24 hr 05/18/24 22:27: WBC 2.7 L, RBC 2.98 L, Hgb 8.4 L, Hct 26.9 L, MCV 90.3, MCH 28.2, MCHC 31.2 L, RDW Std Deviation 43.8, RDW Coeff of Adamaris 13.4, Plt Count 108 L, MPV 10.1, Immature Gran % (Auto) 3.000 H, Neut % (Auto) 65.2, Lymph % (Auto) 14.6 L, [place] % (Auto) 16.8 H, Eos % (Auto) 0.0, Baso % (Auto) 0.4, Absolute Neuts (auto) 1.8 L, Absolute Lymphs (auto) 0.39 L, Nucleated RBC % 0, Differential Comment SCANNED, Diff Path Review February, ESR < 1, Sodium 132 L, Potassium 4.0, Chloride 99, Carbon Dioxide 27.0, Anion Gap 6, BUN 45 H, Creatinine 3.06 H, Estim Creat Clear Calc 23.61, Est GFR (MDRD) Af Amer 27 L, Est GFR (MDRD) Non-Af 23 L, BUN/Creatinine Ratio 14.7, Glucose 93, Lactic Acid 1.1, Calcium 9.7, C-React Prot Ext Range 13.70 H, Procalcitonin 0.25 H 05/18/24 23:55: Urine Color Yellow, Urine Clarity Clear, Urine pH 6.5, Ur Specific [place] 1.010, Urine Protein 30 H, Urine Glucose (UA) Normal, Urine Ketones Negative, Urine Occult Blood Negative, Urine Nitrite Negative, Urine Bilirubin Negative, Urine Urobilinogen Normal, Ur Leukocyte Esterase 100 H, Urine RBC 0 SEEN, Urine WBC 0-5 SEEN, Ur Squamous Epith Cells 0 SEEN, Urine Bacteria 0 SEEN, Urine Mucus 0 SEEN Micro: Microbiology 05/18/24 22:37 Mucosa - Nose SARS-CoV-2, Influenza & RSV (PCR) - Final Imaging Radiology Impression Chest X-Ray 05/18/24 23:05 IMPRESSION: Small left pleural effusion. Calcified pleural plaques are noted bilaterally. Electronically Signed: Estephania Luque MD at 23:39 EDT , [facility] Imaging Services [address], [place] [id number] CT Chest, Abd, Pelvis WO Cont MR#: [id number] Acct: [id number] Name: MARIAN KOCH Rep #: [id number] : 1970 M 54 From: Estephania Luque MD PCP: ENIO Gold Status: ADM IN Study: CT Chest, Abd, Pelvis WO Cont Date of Exam: 05/19/24 Exam# [id number] Ordering Dr: Zhou Hines DO STUDY: CT CHEST, ABDOMEN T PELVIS WITHOUT CONTRAST REASON FOR EXAM: Male, 54 years old. chest pain RADIATION DOSAGE (If Supplied By Facility): CTDIvol = ( 7.97 ) mGy, DLP = ( 843.18 ) mGycm TECHNIQUE: Transaxial imaging was performed without the administration of intravenous contrast material. The protocol utilizes one or more of the following dose reduction techniques: automated exposure control, adjustment of mA and/or kV according to patient size,and/or use of iterative reconstruction technique. COMPARISON: CT Abdomen/PelvisJu 2023 9:34pm FINDINGS: CHEST Prominent calcified plaque in the posterior left lower hemithorax. There is a small left pleural effusion. There is an ill-defined nodule in the superior segment of the right lower lobe measures 7 mm has nonspecific appearance, axial image 41, series 2. A follow-up in 6 months would be helpful to ensure stability. Normal heart and pericardium. Previous CABG. Prominent coronary calcifications. Normal mediastinum. Normal hilar regions. Normal unenhanced pulmonary arteries. Normal aorta arch and descending thoracic aorta. Normal osseous structures. There is no demonstrated abnormality of the visualized upper abdomen. ABDOMEN LIVER: Unremarkable. Homogeneous. GALLBLADDER AND BILE DUCTS: Normal gallbladder. No gross stones. No gallbladder distention or wall edema. No intra- or extrahepatic biliary ductal dilation. PANCREAS: Unremarkable. No focal cystic mass. SPLEEN: Unremarkable. Normal size without focal cystic or solid mass. ADRENALS: Unremarkable. No nodules. KIDNEYS AND URETERS: Both [place] kidneys have been removed. There is a left lower quadrant transplant kidney with a grossly satisfactory appearance. No hydronephrosis. STOMACH AND BOWEL: Evaluation of the GI tract is limited by absence of oral contrast. Cannot exclude stomach wall thickening. No dilated loops of bowel or evidence for obstruction. Moderate diffuse fecal retention. Appendix within normal limits. PELVIS: APPENDIX: Normal endplates. BLADDER: Moderate distention of the bladder. REPRODUCTIVE: Moderate prostate enlargement. ABDOMEN and PELVIS: INTRAPERITONEAL SPACE: Small amounts of free fluid over the liver and spleen. No free air. BONES/JOINTS: A femoral-femoral bypass graft is seen. Cannot determine patency without IV contrast. No suspicious lytic or blastic abnormality. SOFT TISSUES: Unremarkable. No discrete abdominal or pelvic wall hernia. VASCULATURE: There is severe calcific vascular disease. No aneurysm. LYMPH NODES: Unremarkable. No enlarged lymph nodes. CT/CT Chest, Abd, Pelvis WO Cont IMPRESSION: There is an ill-defined nodule in the superior segment of the right lower lobe measures 7 mm has nonspecific appearance, axial image 41, series 2. A follow-up in 6 months would be helpful to ensure stability. Electronically Signed: Estephania Luuqe MD at 4:12 EDT Reading Location ID and State: [facility] / MD Tel , Service support , CC: Zhou Hines DO; ENIO Gold ~ [employer] Shar[employer]er: Signed Assessment & Plan Assessment/Plan (1) Sepsis: QUALIFIERS: Acute renal failure type: unspecified Sepsis acute organ dysfunction status: with acute organ dysfunction Sepsis type: sepsis due to unspecified organism Severe sepsis acute organ dysfunction type: acute renal failure Severe sepsis shock status: without septic shock Qualified Code(s): A41.9 - Sepsis, unspecified organism; R65.20 - Severe sepsis without septic shock; N17.9 - Acute kidney failure, unspecified (2) Fever of unknown origin: (3) [place] (acute kidney injury): (4) Immunosuppressed status: (5) History of renal transplant: PLAN: Plan 1. Signs of sepsis with fever up to 101.6 degrees Fahrenheit complicated by clinical evidence of hypotension with blood pressure of ~85 mmHg systolic with Leukopenia of 2.7K with Left shift present on admission with no obvious source of infection but with an elevated C-RP of 13.7 mg/L and an elevated Procalcitonin of 0.25 ng/mL and patient with history of renal transplant - Admit to ICU for treatment under the Sepsis protocol. Continue IV Zosyn begun in the ER but transplant physician recommended IV Vancomycin be stopped with patient suspected to have had an Adverse Drug Reaction to this agent. CT scan of the chest, abdomen and pelvis without contrast is negative for acute pathologic changes that would explain his symptoms. 2. Laboratory evidence of [place]; with elevated creatinine of 3.06 mg/dL (up from 2.4 mg/dL on 04/26/2024) suspicious for possible early rejection of transplant complicating #1 - Vigorously volume resuscitate and recheck CMP in the AM to ensure improvement. Finally, we will consult nephrology to see this patient on-rounds in the AM for further recommendations with help appreciated in advance. 3. History of renal transplant x 2 (Right ~1993; with removal in 2000 & Left 2009); on Mycophenolate Mofetil, Tacrolimus and Prednisone compounding #1 & #2 - Noted. Continue current anti-rejection medications and monitor trend. 4. Remote history of DVT/PE - Stable. 5. History of thrombus if Right Subclavian vein and the proximal portion of the SVC - Noted. 6. PVD; s/p Fem-Pop at [facility] (2018) - Stable. 7. Essential hypertension - Hold scheduled antihypertensives until hypotension resolves. 8. Hyperlipidemia - Resume statin. 9. CAD; s/p CABG x 4 - Noted. 10. History of pericardial window (~1991) - Noted. 11. History of diastolic CHF; with preserved LVEF - Noted. 12. History of Tobacco Abuse; with subsequent COPD - Stable with no evidence of flare at this time. Continue prn nebulizers. 13. VIC - Continue nocturnal CPAP. 14. Chronic Anemia - Stable with hemoglobin of 8.4 g/dL present on admission. 15. Neurogenic Bladder - Continue current regimen. 16. History of Hyperparathyroidism - Noted. 17. GERD - Resume PPI. 18. History of Depression - Continue current treatment. 19. OA - Stable. 20. DVT prophylaxis - Heparin 5,000 units sq BID. Total time: Approximately 75 minutes. Sepsis Attestation Sepsis Attestation: Agree w/Sepsis Date exam was performed: 05/19/24 Time exam was performed: 01:00 Possible Source of Sepsis: Unknown Sepsis Organ Dysfunction Criteria Present: SBP < 90 mmHg or MAP < 65 mmHg and Creatinine > 2.0 mg/dL Fluid Resuscitation Fluid resuscitation indicated?: Yes Fluid Resuscitation ordered: 30 ml/kg fluid bolus ordered Amount of fluid ordered: 2 Sepsis Note Date exam was performed: 05/19/24 Time exam was performed: 05:00 Sepsis Attestation: Sepsis re-evaluation was performed Response to fluids: Fluid responsive hypotension Charges/Coding Visit Charges Inpatient E&M: 83033 Init Hosp L3
--- NOTE | 2024-05-19 03:08 | EX.ED.DYSGE1 ---
HPI History of Present Illness Chief Complaint: Fever Informant: patient and spouse/S.O. Narrative Narrative: Patient is a 54-year-old male with past medical history of chronic kidney disease that required renal transplant in 2009. He states he is still on antirejection/immunosuppressive treatment. He states that while driving home today he developed shaking chills and had to turn the heat on in his car. He states there is mild congestion associate with this and headache. He denies any known sick contact. He states his temperature spiked to 103 at home. He reports he took a home COVID test which was negative and as he does not have an obvious reason for his fever presents to the hospital for evaluation. Patient denies any nausea vomiting diarrhea or dysuria. He denies any abdominal pain associate with this as well. [facility] Medical History Heart attack PVD (peripheral vascular disease) End stage renal disease assisted systemic steroid user Pulmonary embolism Neurogenic bladder Hyperparathyroidism Hyperhomocystinemia GERD (gastroesophageal reflux disease) DVT (deep venous thrombosis) Depression Claudication VIC (obstructive sleep apnea) Chronic obstructive pulmonary disease (COPD) Chronic kidney disease, stage 3 Home Medications ?Medication ?Instructions ?Recorded ?Last Taken ?Type aspirin 81 mg chewable tablet 81 mg PO DAILY health maintenance 02/21/14 07/21/19 History doxazosin 8 mg tablet (Cardura) 8 mg PO DAILY BLADDER 02/21/14 07/21/19 History mycophenolate mofetil 500 mg tablet 500 mg PO BID ANTI-REJECTION 02/21/14 07/21/19 History omeprazole 20 mg capsule,delayed 20 mg PO DAILY ACID REFLUX 02/21/14 07/21/19 History release magnesium oxide 400 mg (241.3 mg 400 mg PO BID SUPPLEMENT 12/25/17 07/21/19 History magnesium) tablet (MgO) atorvastatin 80 mg tablet 80 mg PO DAILY cholesterol 12/30/17 07/21/19 History carvedilol 25 mg tablet 25 mg PO BID blood pressure 12/30/17 07/21/19 History tacrolimus 0.5 mg capsule,extended 2 mg PO DAILY 10/04/21 Unknown History release 24 hr (Astagraf XL) acetaminophen 500 mg tablet 1,000 mg PO Q8 PRN fever or pain 11/15/23 Unknown History amlodipine 5 mg tablet (Norvasc) 5 mg PO DAILY 11/15/23 Unknown History albuterol sulfate 90 mcg/actuation 1 - 2 puff inhalation Q4H PRN PRN 11/20/23 Unknown Rx aerosol inhaler Shortness Of Breath ##1 ferrous sulfate 325 mg (65 mg 325 mg PO DAILY 05/19/24 Unknown History iron) tablet furosemide 40 mg tablet 40 mg PO DAILY 05/19/24 Unknown History gabapentin 300 mg capsule 300 mg PO TID PRN pain 05/19/24 Unknown History ipratropium 0.5 mg-albuterol 3 mg 3 ml inhalation Q6H PRN PRN 05/19/24 Unknown History (2.5 mg base)/3 mL nebulization wheezing soln prednisone 5 mg tablet 5 mg PO DAILY 05/19/24 Unknown History Allergy/AdvReac Type Severity Reaction Status Date / Time propoxyphene napsylate (From Allergy Hives Verified 05/18/24 20:11 Darvocet-N) venom-honey bee (bee venom Allergy Hives Verified 05/18/24 20:11 (honey bee)) Family History Father Arthritis Cancer Lung cancer, 1990 CAD (coronary artery disease) Mother CAD (coronary artery disease) Diet 2012 Surgical History History of quadruple bypass S/P pericardial window creation (~1991) History of lung biopsy (~2007) Renal transplant recipient History of renal transplant Social History Smoking Status: Former smoker pack-years: 19 Tobacco: How many years used: 15 ROS ROS ED Constitutional Constitutional ED: Reports chills and fever(s) Eyes Eyes: Denies blurry vision or change in vision ENT ENT ED: Reports rhinorrhea; Denies sore throat Cardiovascular Cardiovascular: Denies chest pain Respiratory/Chest Respiratory/Chest: Reports cough; Denies dyspnea Gastrointestinal Gastrointestinal: Denies abdominal pain, diarrhea, nausea or vomiting Genitourinary Genitourinary ED: Denies dysuria Musculoskeletal Musculoskeletal: Reports myalgias Integumentary Denies rash Neurologic Neurologic: Reports headache(s) Hematologic/Lymphatic Hematologic/Lymphatic: Denies easy bleeding or easy bruising EXAM Physical Exam Const Vital Signs: 05/18/24 20:08 05/18/24 20:44 05/18/24 22:45 Temperature 101.6 F H 99.3 F H Temperature Source Temporal Oral Pulse Rate 88 87 Respiratory Rate 18 16 Respiratory Effort Normal Non-Labored Respiratory Pattern Normal Blood Pressure 115/65 115/70 Blood Pressure Mean 81 85 Pulse Ox 97 97 Oxygen Delivery Method Room Air 05/18/24 23:56 05/19/24 00:51 05/19/24 00:51 Temperature 100.1 F H 98.9 F 98.9 F Temperature Source Oral Oral Oral Pulse Rate 74 67 Respiratory Rate 18 19 H Respiratory Effort Respiratory Pattern Blood Pressure 95/53 L 111/71 Blood Pressure Mean 67 84 Pulse Ox 98 97 Oxygen Delivery Method Room Air Room Air 05/19/24 01:55 05/19/24 01:55 05/19/24 02:00 Temperature 98.6 F 98.6 F Temperature Source Oral Oral Pulse Rate 71 64 Respiratory Rate 16 16 Respiratory Effort Respiratory Pattern Blood Pressure 86/44 L 96/57 L 96/57 L Blood Pressure Mean 58 70 70 Pulse Ox 99 99 Oxygen Delivery Method Room Air Room Air 05/19/24 02:20 05/19/24 02:24 Temperature 98.6 F Temperature Source Pulse Rate 68 Respiratory Rate 18 Respiratory Effort Respiratory Pattern Blood Pressure 88/56 L 111/86 H Blood Pressure Mean 66 94 Pulse Ox 100 Oxygen Delivery Method Positive well nourished and well developed General Appearance ED: well developed; Negative for pallor HEENT HEENT Narrative: Cobblestoning is noted in the posterior pharynx consistent with sinus drainage No airway edema or compromise No secondary findings to suggest infection of the posterior pharynx Eyes PERRL and EOMs intact bilaterally General Eye ED: Negative for scleral icterus Neck supple Neck Narrative: No nuchal rigidity or meningeal signs noted Resp normal respiratory effort and clear to auscultation bilaterally Cardio regular rate and regular rhythm GI normal to inspection, nondistended, normoactive bowel sounds, non-tender, non-distended and no masses GI Narrative: No voluntary guarding or rigidity or pulsatile mass Auscultation: normoactive bowel sounds Palpation: soft Extremity normal to inspection Extremity Narrative: No obvious bony deformity or joint effusion noted Neuro oriented x3, CN's II-XII intact bilaterally and no sensory deficits noted Sensorium / Orientation: alert Motor Exam: strength 5/5 throughout Psych mental status grossly normal Skin no rashes or lesions noted General Skin Exam: Negative for jaundice or pallor MDM MDM MDM Narrative Medical decision making narrative: Patient arrived to the ER febrile at approximately 102. He reported fevers and chills with myalgias and headache. Symptoms are most consistent with viral syndrome such as COVID or influenza or RSV. However there is concern he may have developed pneumonia or potentially has a UTI. With his immunosuppressed state there is concern for systemic infection as well and therefore a viral swab with chest x-ray and basic labs and urine sample were obtained. Patient has chronic anemia and his hemoglobin is near baseline. However his white blood cell count is low at 2.7 and his neutrophil count is also low at 1.8. Urine sample showed no sign of infection and his creatinine is slightly elevated from his base. Chest x-ray revealed no obvious infiltrate. Viral swab was negative for COVID flu RSV. The patient had a blood culture obtained secondary to his immunosuppressed [place] fever and he was given Zosyn. Vancomycin was also ordered but while this was running the patient began to profusely sweat and feeling well and there was concern it was a reaction secondary to the vancomycin so it was stopped. The patient's case was discussed with nephrology Dr. Madrid as he is immunosuppressed and transplant patient. She feels as there is no obvious source for his infection that he does not need to be transferred at this time. She recommends following his cultures and continuing Zosyn. However she feels that he does not need to be transferred as there is no obvious source. Secondary to this medicine was contacted and they do agree to accept the patient for further care. Patient is immunosuppressed status and the fact he has had an elevated temperature in the ER they recommend a CT of the chest abdomen pelvis to check for any potential infection that could have been missed. Therefore the scan was added. However at this time his temperature has improved with reported Tylenol at home as well as 1 dose of ibuprofen in the ER. He has been hydrated 1.5 L of fluid and is maintaining blood pressure. However with concern that his blood pressure may drop and he is immunosuppressed recommendation is placement in the ICU for closer monitoring History & Record Review Discussion w/independent historian: Patient and Significant other Lab Data Attestation: I reviewed the patient's lab results. Labs: Laboratory Results - last 24 hr 05/18/24 05/18/24 22:27 23:55 WBC 2.7 L RBC 2.98 L Hgb 8.4 L Hct 26.9 L MCV 90.3 MCH 28.2 MCHC 31.2 L RDW Std Deviation 43.8 RDW Coeff of [place] 13.4 Plt Count 108 L MPV 10.1 Immature Gran % (Auto) 3.000 H Neut % (Auto) 65.2 Lymph % (Auto) 14.6 L [place] % (Auto) 16.8 H Eos % (Auto) 0.0 Baso % (Auto) 0.4 Absolute Neuts (auto) 1.8 L Absolute Lymphs (auto) 0.39 L Nucleated RBC % 0 Differential Comment SCANNED Diff Path Review May foll ESR < 1 Sodium 132 L Potassium 4.0 Chloride 99 Carbon Dioxide 27.0 Anion Gap 6 BUN 45 H Creatinine 3.06 H Estim Creat Clear Calc 23.61 Est GFR (MDRD) Af Amer 27 L Est GFR (MDRD) Non-Af 23 L BUN/Creatinine Ratio 14.7 Glucose 93 Lactic Acid 1.1 Calcium 9.7 C-React Prot Ext Range 13.70 H Procalcitonin 0.25 H Urine Color Yellow Urine Clarity Clear Urine pH 6.5 Ur Specific [place] 1.010 Urine Protein 30 H Urine Glucose (UA) Normal Urine Ketones Negative Urine Occult Blood Negative Urine Nitrite Negative Urine Bilirubin Negative Urine Urobilinogen Normal Ur Leukocyte Esterase 100 H Urine RBC 0 SEEN Urine WBC 0-5 SEEN Ur Squamous Epith Cells 0 SEEN Urine Bacteria 0 SEEN Urine Mucus 0 SEEN Radiography Diagnostic Testing: Clinical Impression(s) from Imaging Studies Chest X-Ray 05/18/24 23:05 IMPRESSION: Small left pleural effusion. Calcified pleural plaques are noted bilaterally. Electronically Signed: Estephania Luque MD at 23:39 EDT , Chest x-ray as interpreted by the emergency medicine physician reveals a small left pleural effusion without acute infiltrate or pneumothorax Management Discussion w/another healthcare provider: Hospitalist and Sleeve [facility]er Discharge Plan Dx/Rx/DC Orders Clinical Impression: Fever of unknown origin, Hypertension, Chronic kidney disease, Chronic anemia, Immunosuppressed status Disposition Disposition: Acute Care Hospital [facility]
[2024-05-19 03:29] LABS: Lactic Acid 1.1 mmol/L (0.4-1.9)
--- NOTE | 2024-05-19 03:41 | ED.RN ---
Prior to moving the patient over to ICU, the pt is writhing in pain. This RN asked 3 separate times if he would take some pain meds before transferring and the patient refused.
[2024-05-19] MEDS: Gabapentin 300 MG Capsule PO (03:46)
[2024-05-19] MEDS: Acetaminophen 325 MG Tablet 650 MG PO (03:47)
[2024-05-19] MEDS: 0.9% Normal Saline (1000mL) 1,000 ML 999 ML IV ×3 (03:47→09:50)
[2024-05-19] MEDS: Ondansetron 4 MG/2 ML Vial IV ×3 (04:15→23:40)
[2024-05-19] MEDS: Norepinephrine 8 MG in 0.9% Normal Saline (250mL Bag) 242 ML 9.4 MG CONT INF (05:13)
--- NOTE | 2024-05-19 06:39 | EX.PCM.CONCC ---
Assessment & Plan Assessment/Plan (1) Sepsis: QUALIFIERS: Acute renal failure type: unspecified Sepsis acute organ dysfunction status: with acute organ dysfunction Sepsis type: sepsis due to unspecified organism Severe sepsis acute organ dysfunction type: acute renal failure Severe sepsis shock status: without septic shock Qualified Code(s): A41.9 - Sepsis, unspecified organism; R65.20 - Severe sepsis without septic shock; N17.9 - Acute kidney failure, unspecified (2) [place] (acute kidney injury): (3) Fever of unknown origin: PLAN: Plan RECOMMENDATIONS: 1. Continue empiric antimicrobials. Obtain ID consultation. 2. Given elevated creatinine, will hold off on CTA chest. 3. Obtain upper and lower extremity Dopplers to evaluate for clot burden. 4. Continue Levophed and vasopressin to maintain a mean arterial pressure at or above 65 mmHg. 5. Obtain echocardiogram. 6. Start stress dose steroids. 7. Check respiratory viral panel. 8. Send type and screen. Transfuse if hemoglobin drops below 7 g/dL. 9. The patient is to remain n.p.o. for now. IMPRESSIONS: 1. Undifferentiated shock/fever of unknown origin The patient presented to the hospital with generalized malaise, fevers and chills. The patient is chronically immunosuppressed due to a history of renal transplantation. No definitive source of infection has yet to be identified. Nevertheless, the patient will be continued on empiric antibiotics for now. Infectious diseases consultation will be obtained. Unfortunately, due to the patient's underlying renal insufficiency we will be unable to obtain CTA chest. Given his history of factor V Leiden mutation, will obtain upper and lower extremity Dopplers. Lastly, will obtain echocardiogram to evaluate for any cardiac dysfunction. The patient will be continued on vasopressor support as ordered in an attempt to maintain a mean arterial pressure at or above 65 mmHg. Stress dose steroids have been initiated. 2. Acute on chronic kidney disease Clinical concern for prerenal etiology in the setting of #1. The patient is immunosuppressed at baseline without any missed doses, according to . Will obtain nephrology consultation at this time. Continue supportive care as noted above. 3. Encephalopathy Likely toxic/metabolic in etiology. Continue supportive measures as noted above. Avoid sedating medications. If encephalopathy worsens, will obtain ABG. 4. 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 Given underlying renal insufficiency, will hold off on CTA chest. Doppler studies will be obtained, along with echocardiogram. 5. Pancytopenia Send type and screen with tentative plans to transfuse if hemoglobin drops below 7 g/dL. 6. History of coronary artery disease status post CABG/peripheral vascular disease/hypertension/hyperlipidemia/history of tobacco dependency Complicates care, management, recovery and prognosis. Continue to hold home antihypertensives. The patient is to remain n.p.o. for now. CODE STATUS: Full code (discussed with ) TIME: 52 minutes of critical care time, independent of procedures, was spent addressing the patient's undifferentiated shock, fever of unknown origin, acute on chronic kidney disease, encephalopathy, history of VTE, pancytopenia, review of all data and collaboration with the care team. HPI Consult Data Date of Consult: 05/19/24 HPI Narrative Reason for Consultation: Fever of unknown origin HPI Narrative: The patient is a 54-year-old male, with a history as outlined below, who presented to the emergency department on May 19 after developing generalized malaise, fevers and chills. The patient reportedly took a home COVID test which was negative. The patient has an extensive medical history including coronary artery disease status post CABG, history of heart failure with preserved ejection fraction, history of renal transplantation x 2 on chronic immunosuppression, history of DVT/PE, history of COPD of unclear severity, chronic anemia and GERD. The patient also appears to have a recent blood test completed in April 2024 which demonstrated the presence of a heterozygous factor V Leiden mutation. It is not clear from his history if the patient was previously on a blood thinner or if his prior VTE was provoked or unprovoked. The patient did have a CTA chest completed in March 2024 which demonstrated thrombus within the right subclavian vein and proximal portion of the superior vena cava. In addition, during his central line placement in the intensive care unit this morning, he was noted to have significant thrombus in the right IJ. On presentation to the emergency department, the patient was documented to be febrile with a temperature of 101.6 ?F. He eventually developed hypotension in the emergency department, but was maintaining appropriate oxygen saturations on room air. Laboratory evaluation was notable for pancytopenia with a hemoglobin of 8.4 g/dL and platelet count of 108,000. Chemistry profile was notable for a creatinine of 3.06. Lactic acid was within normal limits. Urine analysis was noncontributory. COVID, influenza and RSV PCR's were negative. Blood and urine cultures were collected. CT chest/abdomen/pelvis was completed, with only incidental note made of a 7 mm pulmonary nodule in the right lower lobe. No other definitive source of infection was identified. The patient's case was apparently discussed with the on-call lead developer at [facility], Dr. Madrid, who refused the patient for transfer. The patient received supplemental IV fluid hydration and was started on antimicrobials. He was subsequently admitted to the medical intensive care unit, where he had to be initiated on vasopressor support. 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 Pulmonary embolism Neurogenic bladder Hyperparathyroidism Hyperhomocystinemia GERD (gastroesophageal reflux disease) DVT (deep venous thrombosis) Depression Claudication VIC (obstructive sleep apnea) Chronic obstructive pulmonary disease (COPD) Chronic kidney disease, stage 3 Home Medications ?Medication ?Instructions ?Recorded ?Last Taken ?Type aspirin 81 mg chewable tablet 81 mg PO DAILY health maintenance 02/21/14 07/21/19 History doxazosin 8 mg tablet (Cardura) 8 mg PO DAILY BLADDER 02/21/14 07/21/19 History mycophenolate mofetil 500 mg tablet 500 mg PO BID ANTI-REJECTION 02/21/14 07/21/19 History omeprazole 20 mg capsule,delayed 20 mg PO DAILY ACID REFLUX 02/21/14 07/21/19 History release magnesium oxide 400 mg (241.3 mg 400 mg PO BID SUPPLEMENT 12/25/17 07/21/19 History magnesium) tablet (MgO) atorvastatin 80 mg tablet 80 mg PO DAILY cholesterol 12/30/17 07/21/19 History carvedilol 25 mg tablet 25 mg PO BID blood pressure 12/30/17 07/21/19 History tacrolimus 0.5 mg capsule,extended 2 mg PO DAILY 10/04/21 Unknown History release 24 hr (Astagraf XL) acetaminophen 500 mg tablet 1,000 mg PO Q8 PRN fever or pain 11/15/23 Unknown History amlodipine 5 mg tablet (Norvasc) 5 mg PO DAILY 11/15/23 Unknown History albuterol sulfate 90 mcg/actuation 1 - 2 puff inhalation Q4H PRN PRN 11/20/23 Unknown Rx aerosol inhaler Shortness Of Breath ##1 ferrous sulfate 325 mg (65 mg 325 mg PO DAILY 05/19/24 Unknown History iron) tablet furosemide 40 mg tablet 40 mg PO DAILY 05/19/24 Unknown History gabapentin 300 mg capsule 300 mg PO TID PRN pain 05/19/24 Unknown History ipratropium 0.5 mg-albuterol 3 mg 3 ml inhalation Q6H PRN PRN 05/19/24 Unknown History (2.5 mg base)/3 mL nebulization wheezing soln prednisone 5 mg tablet 5 mg PO DAILY 05/19/24 Unknown History Allergy/AdvReac Type Severity Reaction Status Date / Time propoxyphene napsylate (From Allergy Hives Verified 05/18/24 20:11 Darvocet-N) venom-honey bee (bee venom Allergy Hives Verified 05/18/24 20:11 (honey bee)) Family History Father Arthritis Cancer Lung cancer, 1990 CAD (coronary artery disease) Mother CAD (coronary artery disease) Diet 2012 Surgical History History of quadruple bypass S/P pericardial window creation (~1991) History of lung biopsy (~2007) Renal transplant recipient History of renal transplant Social History Smoking Status: Former smoker pack-years: 19 Tobacco: How many years used: 15 ROS Review of Systems ROS Unobtainable: due to mental status Physical Exam Const Constitutional Narrative: The patient is currently ill-appearing and somnolent, but arouses briefly to answer questions. HEENT normocephalic and head/scalp atraumatic Eyes PERRL and EOMs intact bilaterally Neck supple General: trachea midline Chest inspection of chest normal Resp Effort and Inspection: tachypneic Auscultation: diminished lung sounds; Negative for rales, rhonchi or wheezes Cardio regular rate and regular rhythm GI soft to palpation Extremity no clubbing, cyanosis or edema Skin no rashes or lesions noted Neuro CN's II-XII intact bilaterally and no focal motor deficits Psych Mood & Affect: flat affect Lab / Micro Data 05/19/24 08:00 05/19/24 08:00 Labs: Laboratory Results - last 24 hr 05/18/24 22:27: WBC 2.7 L, RBC 2.98 L, Hgb 8.4 L, Hct 26.9 L, MCV 90.3, MCH 28.2, MCHC 31.2 L, RDW Std Deviation 43.8, RDW Coeff of [place] 13.4, Plt Count 108 L, MPV 10.1, Immature Gran % (Auto) 3.000 H, Neut % (Auto) 65.2, Lymph % (Auto) 14.6 L, [place] % (Auto) 16.8 H, Eos % (Auto) 0.0, Baso % (Auto) 0.4, Absolute Neuts (auto) 1.8 L, Absolute Lymphs (auto) 0.39 L, Nucleated RBC % 0, Differential Comment SCANNED, Diff Path Review February, ESR < 1, Sodium 132 L, Potassium 4.0, Chloride 99, Carbon Dioxide 27.0, Anion Gap 6, BUN 45 H, Creatinine 3.06 H, Estim Creat Clear Calc 23.61, Est GFR (MDRD) Af Amer 27 L, Est GFR (MDRD) Non-Af 23 L, BUN/Creatinine Ratio 14.7, Glucose 93, Lactic Acid 1.1, Calcium 9.7, C-React Prot Ext Range 13.70 H, Procalcitonin 0.25 H 05/18/24 23:55: Urine Color Yellow, Urine Clarity Clear, Urine pH 6.5, Ur Specific [place] 1.010, Urine Protein 30 H, Urine Glucose (UA) Normal, Urine Ketones Negative, Urine Occult Blood Negative, Urine Nitrite Negative, Urine Bilirubin Negative, Urine Urobilinogen Normal, Ur Leukocyte Esterase 100 H, Urine RBC 0 SEEN, Urine WBC 0-5 SEEN, Ur Squamous Epith Cells 0 SEEN, Urine Bacteria 0 SEEN, Urine Mucus 0 SEEN 05/19/24 02:50: Lactic Acid 1.1 Micro: Microbiology 05/18/24 22:37 Mucosa - Nose SARS-CoV-2, Influenza & RSV (PCR) - Final Imaging Radiology Impression Chest X-Ray 05/18/24 23:05 IMPRESSION: Small left pleural effusion. Calcified pleural plaques are noted bilaterally. Electronically Signed: Estephania Luque MD at 23:39 EDT , Chest/Abdomen/Pelvis CT 05/19/24 02:08 IMPRESSION: There is an ill-defined nodule in the superior segment of the right lower lobe measures 7 mm has nonspecific appearance, axial image 41, series 2. A follow-up in 6 months would be helpful to ensure stability. Electronically Signed: Estephania Luque MD at 4:12 EDT , Charges/Coding Procedures Hospitalists Procedures: [id number] Critical Care 1st Hr
--- NOTE | 2024-05-19 06:40 | ECHOD_ITS ---
Reason For Study: CAD Procedure This was a 2D Doppler, Color Flow transthoracic echocardiogram. Exam performed portable in ICU/CCU. Patient scanned supine. Left Ventricle Normal left ventricle. Mild concentric left ventricular hypertrophy. Left ventricular systolic function is lower limits of normal. The left ventricular ejection fraction is 50 %. Stage 2 diastolic dysfunction. Right Ventricle Normal RV size. Normal systolic function. Atria Normal left atrium. Normal right atrium. Mitral Valve Normal mitral valve. Tricuspid Valve Normal tricuspid valve. Mild tricuspid valve insufficiency. Pulmonary artery systolic pressure is 23 mmHg. Aortic Valve Trisinus/trileaflet aortic valve. Mild focal aortic valve calcification. Mild (1+) aortic valve insufficiency. Pulmonic Valve Normal pulmonic valve. Great Vessels Normal aortic root. The pulmonary artery is normal size. The inferior vena cava is dilated. and partially collapses. Pericardium/Pleural No pericardial effusion. MMode/2D Measurements & Calculations LVIDd: 4.8 cm IVSd: 1.2 cm LVOT diam: 2.0 cm LVIDs: 4.0 cm LVPWd: 1.6 cm LVOT area: 3.2 cm2 RVDd: 3.7 cm FS: 17.6 % Ao root diam: 3.2 cm LAV(MOD-bp): 49.6 ml LVAd ap4: 27.1 cm2 LAV(MOD-bp) Indexed: 30.0 ml/m2 LVLd ap4: 8.1 cm LAV(MOD-sp2): 49.3 ml EDV(MOD-sp4): 78.3 ml LAV(MOD-sp4): 43.2 ml EDV(sp4-el): 77.2 ml LVAs ap4: 18.6 cm2 LVLs ap4: 7.7 cm ESV(MOD-sp4): 41.0 ml ESV(sp4-el): 38.3 ml EF(MOD-sp4): 47.7 % EF(sp4-el): 50.4 % LVAd ap2: 33.0 cm2 SV(MOD-sp4): 37.4 ml SV(MOD-sp2): 52.8 ml LVLd ap2: 8.6 cm EDV(MOD-sp2): 107.1 ml EDV(sp2-el): 108.1 ml LVAs ap2: 22.4 cm2 LVLs ap2: 7.9 cm ESV(MOD-sp2): 54.3 ml ESV(sp2-el): 54.1 ml EF(MOD-sp2): 49.3 % SV(sp4-el): 38.9 ml LA dimension(2D): 3.3 cm LA A4 area: 17.1 cm2 RA A4 area: 16.6 cm2 TAPSE: 1.3 cm Time Measurements MV dec time: 0.24 sec Doppler Measurements & Calculations MV E max salazar: 83.8 cm/sec Lat Peak E' Salazar: 5.2 cm/sec Med Peak E' Salazar: 4.3 cm/sec MV A max salazar: 51.5 cm/sec E/E' lat: 16.0 E/E' med: 19.4 MV E/A: 1.6 Ao V2 max: 144.7 cm/sec AI max salazar: 293.4 cm/sec MV dec slope: 348.4 cm/sec2 Ao max P.4 mmHg AI max P.5 mmHg Ao V2 mean: 108.4 cm/sec Ao mean P.0 mmHg AI dec slope: 141.6 cm/sec2 Ao V2 VTI: 28.6 cm AI P1/2t: 606.8 msec AV (velocity ratio): 0.81 JACOBY(I,D): 2.6 cm2 JACOBY(V,D): 2.6 cm2 LV V1 max: 118.3 cm/sec SV(LVOT): 73.6 ml PA V2 max: 70.4 cm/sec LV V1 max P.6 mmHg LV V1 mean P.5 mmHg LV V1 mean: 89.0 cm/sec LV V1 VTI: 23.1 cm TR max salazar: 224.3 cm/sec TR max P.1 mmHg ECHO/Echo Complete Interpretation Summary The left ventricular ejection fraction is 50 %. Left ventricular systolic function is lower limits of normal. Stage 2 diastolic dysfunction. Mild (1+) aortic valve insufficiency. Ordering Physician: Trey Ro Referring Physician: Atul Saab Performed By: Veronica Levy RDCS
--- NOTE | 2024-05-19 06:45 | NURSING ---
This RN attempted to call patient's to get consent for a central line. did not answer. Consent given by Jenny Jackson, patient's sister and double verified over the phone with JENNIFER Figueroa.
--- NOTE | 2024-05-19 07:29 | PCM.OP.PRO ---
Procedure Report Date of Procedure: 05/19/24 Central Venous Catheter Indication: Septic shock Consent was obtained from: Patient's A time-out was completed verifying correct patient, procedure, site, positioning, and special equipment if applicable. The patient was placed in a dependent position appropriate for central line placement based on the vein to be cannulated. The patient's left neck was prepped and draped in a sterile fashion. 1% lidocaine was used to anesthetize the surrounding skin area. A triple-lumen catheter was introduced into the left internal jugular vein using the Seldinger technique and under ultrasound guidance. The catheter was threaded smoothly over the guidewire and appropriate blood return was obtained. Each lumen of the catheter was evacuated of air and flushed with sterile saline. The catheter was then sutured in place to the skin and a sterile dressing applied. Chest x-ray to confirm appropriate positioning is pending. ULTRASOUND GUIDANCE STATEMENT (Vascular Access): I performed ultrasound image acquisition and interpretation for needle placement during the procedure. The vessel was identified and found to be free of thrombosis by compression technique. A safe point of entry was marked at the skin in an angle for axis was determined. The needle was guided by obtaining free-flowing fluid and by real-time visualization. Procedures Hospitalists Procedures: [id number] Insert Non-tunnel CV Cath
--- NOTE | 2024-05-19 07:30 | RAD_ITS ---
STUDY: X-RAY CHEST REASON FOR EXAM: Male, 54 years old. Line placement TECHNIQUE: Single AP portable view of the chest. COMPARISON: Comparison is made with prior study dated May 18, 2024. FINDINGS: A left-sided internal jugular venous catheter has been placed. The tip is at the junction of the superior vena cava and left brachiocephalic vein. EKG electrodes are seen. A stent is seen in the right subclavian artery/vein. Stable density in the left lower lobe over several months most likely representing chronic pleural calcification. Blunting of both costophrenic angles. Sternal cerclage wires and vascular clips are present from a prior sternotomy and coronary artery bypass graft procedure (CABG). Normal mediastinum and vimal. Normal visualized pulmonary arteries. There is atherosclerotic calcification of the aortic arch with tortuosity. There is demineralization of the osseous structures. Normal visualized ribs, clavicles, and shoulders. There is no demonstrated abnormality of the visualized soft tissue structures of the upper abdomen. RAD/CXR for Line Placement IMPRESSION: Stable examination. A left-sided internal jugular venous catheter has been placed with the tip at the junction of the superior vena cava and left brachiocephalic vein. The remainder of the examination is unchanged. Electronically Signed: Gabe Nichols MD at 8:20 EDT ,
[2024-05-19] MEDS: Hydrocortisone Sod Succinate 100 MG/2 ML Vial 50 MG IV ×3 (07:36→16:50)
[2024-05-19 07:55] LABS: Procalcitonin 6.84 ng/mL (0.00-0.09)
--- NOTE | 2024-05-19 08:06 | VDLE_ITS ---
Reason For Study: Bilateral leg swelling RIGHT LEFT Acute deep vein thrombosis is noted in the CFV is compressible, spontaneous, phasic, right CFV. Extends from GSV. It is partially competent, and demonstrates normal NONCOMPRESSIBLE. augmentation. Acute superficial vein thrombosis is noted in FV is compressible, spontaneous, phasic, the rght GSV from junction to knee. Remaining competent and demonstrates normal GSV is partially compressible wth bright augmentation. intraluminal echoes. POP V is compressible, spontaneous, phasic, FV is compressible, spontaneous, phasic, competent and demonstrates normal competent and demonstrates normal augmentation. augmentation. T/P Trunk is compressible. POP V is compressible, spontaneous, phasic, PTV is compressible. competent and demonstrates normal LT PerV is compressible. augmentation. GSV previously harvested. T/P Trunk is compressible. PTV is compressible. RT PerV is compressible. Procedure This is a venous duplex using B-mode, color flow and spectral Doppler. Exam performed portable in ICU/CCU. A preliminary report was called and/or faxed to Dr. Ro. VL/Venous Duplex US - Steve Extrem Interpretation Summary Acute deep vein thrombosis is noted in the right common femoral vein. Acute superficial vein thombosis noted in the right saphenofemoral junction, gr eat saphenous vein. Ordering Physician: Trey Ro Referring Physician: Sharonda Tate Performed By: Ester Bergman RVT
--- NOTE | 2024-05-19 08:11 | VDUE_ITS ---
Reason For Study: Bilateral arm swelling Right Proximal Left Proximal Internal jugular vein is partially Left jugular vein is spontaneous, widely compressible with bright intraluminal echoes patent, phasic, with no intraluminal noted. Minimal venous flow noted. echogenicity noted. Acute deep vein thrombosis is noted in the Central line noted at the left neck. right Subclavian vein. It is NONCOMPRESSIBLE. Left subclavian vein is spontaneous, widely Right Lower Arm patent, phasic, with no intraluminal Right radial vein is compressible. echogenicity noted. Right ulnar vein is compressible. Left Arm Right Arm Left axillary vein is spontaneous, patent, Right axillary vein is spontaneous, patent, phasic, competent, compressible and phasic, competent, compressible and demonstrates augmentation. demonstrates augmentation. Left brachial vein is compressible. Right brachial vein is compressible. Old fistula noted in the left upper arm. Old fistula noted in the right upper arm. Left cephalic vein is compressible. Right cephalic vein is compressible. Left basilic vein is compressible. IV noted in the right cephalic vein proximal Left Lower Arm upper arm. Left radial vein is compressible. Right basilic vein is compressible. Left ulnar vein is compressible. Patient Safety Preliminary report given to Dr. Ro. VL/Venous Duplex US - Steve Extrem Interpretation Summary Acute deep vein thrombosis noted in the right subclavian vein. Chronic deep vein thrombosis noted in the right internal jugular vein. Deep veins of the left upper extremity are patent and compressible segmentally. There is no evidence of deep vein thrombosis. Multiple failed AV fistulas bilateral Ordering Physician: Trey Ro Referring Physician: Sharonda Tate Performed By: Ester Bergman RVT ???
[2024-05-19 08:24] LABS: Hematocrit 25.9 % (40-54); Hemoglobin 7.9 g/dL (13.0-16.5); Mean Corp Hgb Conc 30.5 g/dL (32-36); Mean Corpuscular Hgb 28.2 pg (27.0-32.0); Mean Corpuscular Volume 92.5 fL (80-94); Mean Platelet Vol. 10.8 fl (6.2-12.0); POSITIVE COUNT YES; POSITIVE DIFFERENTIAL YES; POSITIVE MORPHOLOGY YES; Platelet Count 76 K/mm3 (150-450); RBC Distribution Width CV 13.5 % (11.6-14.6); White Blood Count 1.9 K/mm3 (4.4-11.0)
[2024-05-19 08:28] LABS: Differential Indicated MANUAL DIFF
[2024-05-19 08:29] LABS: ALB/GLOB Ratio 1.4 RATIO (0.9-2.4); AST(SGOT) 14 U/L (15-37); Alanine Aminotransfer ALT/SGPT 14 U/L (16-61); Albumin, Serum 2.7 g/dL (3.2-5.0); Alkaline Phosphatase 59 U/L (45-117); Anion Gap 4 (5-15); BUN 50 mg/dL (7-18); BUN/Creat Ratio 14.6 RATIO (10-20); Calcium,Total 8.1 mg/dL (8.5-10.1); Chloride 105 mmol/L (98-107); Creatinine, Serum 3.43 mg/dL (0.70-1.30); EST Glomerular Filtration Rate 20 mL/min (>60); Est Glom Filt Rate - Afr Amer 24 mL/min (>60); Estimated Creatinine Clearance 20.51 ml/min; Globulin 1.9 g/dL (2.2-4.2); Glucose 70 mg/dL (74-106); Magnesium 1.4 mg/dL (1.6-2.6); Potassium 4.5 mmol/L (3.5-5.1); Protein, Total 4.6 g/dL (6.4-8.2); Sodium Level 135 mmol/L (136-145)
[2024-05-19 08:32] LABS: Phosphorus 2.6 mg/dL (2.5-4.9); Troponin-I HS 256 pg/mL (3.0-78.0)
--- NOTE | 2024-05-19 08:54 | PCM.HOSP.N ---
Hospitalist Note 54-year-old male history of CAD status post CABG, pericardial window previously, heart failure preserved ejection fraction, renal transplant x 2, right subclavian thrombosis and stenting, PVD, femoropopliteal, COPD, VIC, neurogenic bladder, hyperparathyroidism, GERD presented to [facility] ED 05/19/2024 for fever and hypotension, had worsening renal failure and was hypotensive in ED with a fever of 101.6. Tertiary center declined transfer so hospitalist contacted for mission.. Patient admitted to the ICU and placed on Levophed and Zosyn, blood cultures obtained. Patient had continued worsening of his hypotension despite fluids and IV antibiotics and stitching machine setter placed left IJ, right IJ was examined but there was clot present suis placed on the left. Patient had upper and lower extremity duplexes ordered, echo ordered, nephrology consulted. Patient on 20 of Levophed. Evaluated in the ICU and woke up when room was entered however with further questions was reluctant to engage. Patient did not endorse any specific complaints at time of exam but suspect this is in part due to patient difficulty cooperating. Continue to monitor in ICU on Levophed and Zosyn
[2024-05-19 09:02] LABS: Lymphocyte 20 % (19-41); Metamyelocyte 18 % (0-1); Myelocyte 4 % (0-0); Neutrophil-Band 24 % (0-5); Neutrophil-Segmented 34 % (47-70); Total Cells Counted 50 (MANUAL DIFF)
[2024-05-19 09:03] LABS: Platelet Estimate SLT DEC (ADEQ)
[2024-05-19 09:04] LABS: Absolute Neutrophil Count 1.6 X10^3/uL (2.0-7.7); Red Cell Morphology NORM C+C NORMAL (NORM C&C)
[2024-05-19 09:05] LABS: Absolute Lymphocyte Count 0.37 X10^3/uL (0.83-4.51)
--- NOTE | 2024-05-19 09:15 | NURSING ---
Dr. Ro at bedside placing arterial line
--- NOTE | 2024-05-19 09:30 | PCM.OP.PRO ---
Procedure Report Date of Procedure: 05/19/24 Arterial Line Indication: Septic shock Consent was obtained from: Patient's A time-out was completed verifying correct patient, procedure, site, positioning, and special equipment if applicable. Robin's test was performed to ensure adequate perfusion. The patient's right AC was prepped and draped in the sterile fashion. An 18-gauge arrow arterial line was introduced into the brachial artery. The catheter was threaded over the guidewire and the needle was removed with the appropriate pulsatile blood return. The catheter was then sutured in place to the skin and a sterile dressing applied. Perfusion to the extremity distal to the point of catheter insertion was checked and found to be adequate. ULTRASOUND GUIDANCE STATEMENT (Vascular Access): I perform ultrasound image acquisition and interpretation for needle placement during this procedure. The vessel was identified and found to be free of thrombosis by compression technique. A safe point of entry was marked at the skin and then angle for access was determined. The needle was guided by obtaining free-flowing fluid and by real-time visualization. Procedures Hospitalists Procedures: [id number] Insertion Catheter Artery
[2024-05-19] MEDS: Vasopressin 20 UNITS in 0.9% Normal Saline (50mL Bag) 24 ML 3 UNITS CONT INF ×3 (09:37→21:58)
[2024-05-19] MEDS: Phenylephrine 10 MG in 0.9% Normal Saline (250mL Bag) 249 ML 15 MG CONT INF (10:20)
[2024-05-19] MEDS: Heparin Injection (Vial) 5,000 UNIT/ML VIAL 5000 UNIT SC ×2 (10:21→22:03)
--- NOTE | 2024-05-19 10:28 | PCM.CONS.GEN ---
Assessment & Plan Assessment/Plan (1) [place]O (acute kidney injury): (2) History of renal transplant: (3) Septic shock: PLAN: H/o renal transplant x2, most recent 2011 at . New [place], leukopenia, and worsening of his chronic thrombocytopenia. ANC is 1.6. No clear exposure history. Full resp pcr panel pending. No meningismus. Neph consult. On pressors. Bcx and ucx pending. Will check cmv and ebv serologies and quant pcrs, parvo pcr, and tacro level. Cont empiric zosyn, will adjust dose to q12h based on gfr. Will follow, thank you, d/w Dr. Ro HPI Consult Data Date of Consult: 05/19/24 HPI Narrative Reason for Consultation: septic shock HPI Narrative: MARIAN BARROSO, is a 54 M with renal transplant x2, most recent at 2011 at , no h/o OI. On stable doses at home of MMF, tacro, pred. Also with h/o DVT/PE, fem-pop bypass, COPD. Presented to ED late last night due to acute onset fever, chills, fatigue, mild headache, stabbing central abd pain, nausea. No dysuria. No neck pain, no photophobia. No new rash. Came to ED, admitted to icu with hypotension and [place], now on zosyn and two pressors. Additional history obtained from at bedside. Exposure history: went to a concern 05/08/24 and was around a lot of people. Granddaughter had fever and URI two weeks ago. No other sick contacts. Has 3 dogs, 2 cats at home, no other animal exposures. No recent travel. No recent bug bites. Has not been in the lord or gardening. No recent dental work or other procedures. Full ROS performed and neg except as noted above. [facility] Medical History Heart attack PVD (peripheral vascular disease) End stage renal disease assisted systemic steroid user Pulmonary embolism Neurogenic bladder Hyperparathyroidism Hyperhomocystinemia GERD (gastroesophageal reflux disease) DVT (deep venous thrombosis) Depression Claudication VIC (obstructive sleep apnea) Chronic obstructive pulmonary disease (COPD) Chronic kidney disease, stage 3 Home Medications ?Medication ?Instructions ?Recorded ?Last Taken ?Type aspirin 81 mg chewable tablet 81 mg PO DAILY health maintenance 02/21/14 07/21/19 History doxazosin 8 mg tablet (Cardura) 8 mg PO DAILY BLADDER 02/21/14 07/21/19 History mycophenolate mofetil 500 mg tablet 500 mg PO BID ANTI-REJECTION 02/21/14 07/21/19 History omeprazole 20 mg capsule,delayed 20 mg PO DAILY ACID REFLUX 02/21/14 07/21/19 History release magnesium oxide 400 mg (241.3 mg 400 mg PO BID SUPPLEMENT 12/25/17 07/21/19 History magnesium) tablet (MgO) atorvastatin 80 mg tablet 80 mg PO DAILY cholesterol 12/30/17 07/21/19 History carvedilol 25 mg tablet 25 mg PO BID blood pressure 12/30/17 07/21/19 History tacrolimus 0.5 mg capsule,extended 2 mg PO DAILY 10/04/21 Unknown History release 24 hr (Astagraf XL) acetaminophen 500 mg tablet 1,000 mg PO Q8 PRN fever or pain 11/15/23 Unknown History amlodipine 5 mg tablet (Norvasc) 5 mg PO DAILY 11/15/23 Unknown History albuterol sulfate 90 mcg/actuation 1 - 2 puff inhalation Q4H PRN PRN 11/20/23 Unknown Rx aerosol inhaler Shortness Of Breath ##1 ferrous sulfate 325 mg (65 mg 325 mg PO DAILY 05/19/24 Unknown History iron) tablet furosemide 40 mg tablet 40 mg PO DAILY 05/19/24 Unknown History gabapentin 300 mg capsule 300 mg PO TID PRN pain 05/19/24 Unknown History ipratropium 0.5 mg-albuterol 3 mg 3 ml inhalation Q6H PRN PRN 05/19/24 Unknown History (2.5 mg base)/3 mL nebulization wheezing soln prednisone 5 mg tablet 5 mg PO DAILY 05/19/24 Unknown History Allergy/AdvReac Type Severity Reaction Status Date / Time propoxyphene napsylate (From Allergy Hives Verified 05/18/24 20:11 Darvocet-N) venom-honey bee (bee venom Allergy Hives Verified 05/18/24 20:11 (honey bee)) Family History Father Arthritis Cancer Lung cancer, 1990 CAD (coronary artery disease) Mother CAD (coronary artery disease) Diet 2012 Surgical History History of quadruple bypass S/P pericardial window creation (~1991) History of lung biopsy (~2007) Renal transplant recipient History of renal transplant Social History Smoking Status: Former smoker pack-years: 19 Tobacco: How many years used: 15 Physical Exam Const oriented x3 and no apparent distress General Appearance: cooperative and lethargic HEENT normocephalic and head/scalp atraumatic Eyes PERRL and EOMs intact bilaterally Neck supple and No nodes Resp normal air movement and clear to auscultation bilaterally Cardio regular rate, regular rhythm and no murmurs GI soft to palpation, non-tender and non-distended Extremity General Extremity: Negative for edema Skin no rashes or lesions noted Neuro CN's II-XII intact bilaterally Lab / Micro Data Attestation: I reviewed the patient's lab results. 05/19/24 08:00 05/19/24 08:00 Labs: Laboratory Results - last 24 hr 05/18/24 22:27: WBC 2.7 L, RBC 2.98 L, Hgb 8.4 L, Hct 26.9 L, MCV 90.3, MCH 28.2, MCHC 31.2 L, RDW Std Deviation 43.8, RDW Coeff of Adamaris 13.4, Plt Count 108 L, MPV 10.1, Immature Gran % (Auto) 3.000 H, Neut % (Auto) 65.2, Lymph % (Auto) 14.6 L, Crenshaw % (Auto) 16.8 H, Eos % (Auto) 0.0, Baso % (Auto) 0.4, Absolute Neuts (auto) 1.8 L, Absolute Lymphs (auto) 0.39 L, Nucleated RBC % 0, Differential Comment SCANNED, Diff Path Review February, ESR < 1, Sodium 132 L, Potassium 4.0, Chloride 99, Carbon Dioxide 27.0, Anion Gap 6, BUN 45 H, Creatinine 3.06 H, Estim Creat Clear Calc 23.61, Est GFR (MDRD) Af Amer 27 L, Est GFR (MDRD) Non-Af 23 L, BUN/Creatinine Ratio 14.7, Glucose 93, Lactic Acid 1.1, Calcium 9.7, C-React Prot Ext Range 13.70 H, Procalcitonin 0.25 H 05/18/24 23:55: Urine Color Yellow, Urine Clarity Clear, Urine pH 6.5, Ur Specific Ault 1.010, Urine Protein 30 H, Urine Glucose (UA) Normal, Urine Ketones Negative, Urine Occult Blood Negative, Urine Nitrite Negative, Urine Bilirubin Negative, Urine Urobilinogen Normal, Ur Leukocyte Esterase 100 H, Urine RBC 0 SEEN, Urine WBC 0-5 SEEN, Ur Squamous Epith Cells 0 SEEN, Urine Bacteria 0 SEEN, Urine Mucus 0 SEEN 05/19/24 02:50: Lactic Acid 1.1 05/19/24 06:25: Procalcitonin 6.84 H, Cortisol 4.60 05/19/24 08:00: WBC 1.9 L, RBC 2.80 L, Hgb 7.9 L, Hct 25.9 L, MCV 92.5, MCH 28.2, MCHC 30.5 L, RDW Std Deviation 46.0 H, RDW Coeff of Adamaris 13.5, Plt Count 76 L, MPV 10.8, Neut % (Auto) Not Reportable, Absolute Neuts (auto) 1.6 L, Absolute Lymphs (auto) 0.37 L, Total Counted 50, Neutrophils % (Manual) 34 L, Band Neutrophils % 24 H, Lymphocytes % (Manual) 20, Metamyelocytes % 18 H, Myelocytes % 4 H, Diff Path Review February, Platelet Estimate SLT DEC, RBC Morphology NORM C+C, Sodium 135 L, Potassium 4.5, Chloride 105, Carbon Dioxide 26.0, Anion Gap 4 L, BUN 50 H, Creatinine 3.43 H, Estim Creat Clear Calc 20.51, Est GFR (MDRD) Af Amer 24 L, Est GFR (MDRD) Non-Af 20 L, BUN/Creatinine Ratio 14.6, Glucose 70 L, Calcium 8.1 L, Phosphorus 2.6, Magnesium 1.4 L, Total Bilirubin 1.00, AST 14 L, ALT 14 L, Alkaline Phosphatase 59, Troponin I High Sens 256 H*, Total Protein 4.6 L, Albumin 2.7 L, Globulin 1.9 L, Albumin/Globulin Ratio 1.4 Micro: Microbiology 05/18/24 22:37 Mucosa - Nose SARS-CoV-2, Influenza & RSV (PCR) - Final Imaging Radiology Impression Chest X-Ray 05/18/24 23:05 IMPRESSION: Small left pleural effusion. Calcified pleural plaques are noted bilaterally. Electronically Signed: Estephania Luque MD at 23:39 EDT , Chest/Abdomen/Pelvis CT 05/19/24 02:08 IMPRESSION: There is an ill-defined nodule in the superior segment of the right lower lobe measures 7 mm has nonspecific appearance, axial image 41, series 2. A follow-up in 6 months would be helpful to ensure stability. Electronically Signed: Estephania Luque MD at 4:12 EDT , Chest X-Ray 05/19/24 07:30 IMPRESSION: Stable examination. A left-sided internal jugular venous catheter has been placed with the tip at the junction of the superior vena cava and left brachiocephalic vein. The remainder of the examination is unchanged. Electronically Signed: Gabe Nichols MD at 8:20 EDT ,
[2024-05-19 10:29] LABS: Troponin-I HS 335 pg/mL (3.0-78.0)
--- NOTE | 2024-05-19 10:44 | PCM.CONS.R ---
Assessment & Plan Assessment/Plan (1) History of renal transplant: PLAN: This is 54 years old male who is chronically immunosuppressed. He is status post renal transplant more than 10 years ago and has underlying CKD 3. Acute kidney injury is secondary to renal ischemia in the setting of his septic shock. One of the many episodes once again. At the moment he is not acidotic and not hyperkalemic, he is not fluid overloaded and does not need dialysis. I suspect that clearance of tacrolimus is impaired due to acute kidney injury and a level needs to be measured. CellCept needs to be on hold due to active infection. Recommend stress dose of steroids. We will follow him closely (2) [place] (acute kidney injury): HPI Consult Data Date of Consult: 05/19/24 HPI Narrative Reason for Consultation: Acute kidney injury HPI Narrative: MARIAN BARROSO, is a 54 M who presents with septic shock. Patient is well-known to our service. 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 That kidney eventually failed and he has received a second transplant at [facility] back in 2009. He has baseline creatinine appears to be around 2. This is one of the many admissions to [facility] with infection related issues. Patient is chronically immunocompromised. Antirejection regimen includes tacrolimus, CellCept and small dose of prednisone. According to patient's he has been doing well up until yesterday when he suddenly developed midepigastric pain, fevers, chills and had an episode of nausea and vomiting. He was taken to emergency room where he was found to be hypotensive, he has neutropenia and fevers. He is creatinine is up to 3.06 on admission at this 3.4 today. Admitted to ICU, currently receiving IV boluses. Arterial line is placed. So far no urine output recorded. Patient is not hyperkalemic, he is not acidotic with a bicarb of 26. He is currently on room air. His white count is 1.9. 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 Pulmonary embolism Neurogenic bladder Hyperparathyroidism Hyperhomocystinemia GERD (gastroesophageal reflux disease) DVT (deep venous thrombosis) Depression Claudication VIC (obstructive sleep apnea) Chronic obstructive pulmonary disease (COPD) Chronic kidney disease, stage 3 Home Medications ?Medication ?Instructions ?Recorded ?Last Taken ?Type aspirin 81 mg chewable tablet 81 mg PO DAILY health maintenance 02/21/14 07/21/19 History doxazosin 8 mg tablet (Cardura) 8 mg PO DAILY BLADDER 02/21/14 07/21/19 History mycophenolate mofetil 500 mg tablet 500 mg PO BID ANTI-REJECTION 02/21/14 07/21/19 History omeprazole 20 mg capsule,delayed 20 mg PO DAILY ACID REFLUX 02/21/14 07/21/19 History release magnesium oxide 400 mg (241.3 mg 400 mg PO BID SUPPLEMENT 12/25/17 07/21/19 History magnesium) tablet (MgO) atorvastatin 80 mg tablet 80 mg PO DAILY cholesterol 12/30/17 07/21/19 History carvedilol 25 mg tablet 25 mg PO BID blood pressure 12/30/17 07/21/19 History tacrolimus 0.5 mg capsule,extended 2 mg PO DAILY 10/04/21 Unknown History release 24 hr (Astagraf XL) acetaminophen 500 mg tablet 1,000 mg PO Q8 PRN fever or pain 11/15/23 Unknown History amlodipine 5 mg tablet (Norvasc) 5 mg PO DAILY 11/15/23 Unknown History albuterol sulfate 90 mcg/actuation 1 - 2 puff inhalation Q4H PRN PRN 11/20/23 Unknown Rx aerosol inhaler Shortness Of Breath ##1 ferrous sulfate 325 mg (65 mg 325 mg PO DAILY 05/19/24 Unknown History iron) tablet furosemide 40 mg tablet 40 mg PO DAILY 05/19/24 Unknown History gabapentin 300 mg capsule 300 mg PO TID PRN pain 05/19/24 Unknown History ipratropium 0.5 mg-albuterol 3 mg 3 ml inhalation Q6H PRN PRN 05/19/24 Unknown History (2.5 mg base)/3 mL nebulization wheezing soln prednisone 5 mg tablet 5 mg PO DAILY 05/19/24 Unknown History Allergy/AdvReac Type Severity Reaction Status Date / Time propoxyphene napsylate (From Allergy Hives Verified 05/18/24 20:11 Darvocet-N) venom-honey bee (bee venom Allergy Hives Verified 05/18/24 20:11 (honey bee)) Family History Father Arthritis Cancer Lung cancer, 1991 CAD (coronary artery disease) Mother CAD (coronary artery disease) Diet 2013 Surgical History History of quadruple bypass S/P pericardial window creation (~1991) History of lung biopsy (~2007) Renal transplant recipient History of renal transplant Social History Smoking Status: Former smoker pack-years: 19 Tobacco: How many years used: 15 ROS Review of Systems ROS Unobtainable: due to mental status Constitutional Constitutional: Reports chills, fever(s), malaise and weakness Eyes Eyes: Denies blindness, blurry vision, change in vision, discongugate gaze, double vision, dry eyes or loss of vision ENT HEENT: Denies dry mouth, epistaxis, hoarseness, loss taste/smell or nasal congestion Cardiovascular Cardiovascular: Denies chest pain, claudication, diaphoresis, dyspnea on exertion, edema, irregular heart rhythm, leg edema, orthopnea, palpitations or syncope Respiratory/Chest Respiratory/Chest: Denies dry cough, dyspnea on exertion, hemoptysis, portable oxygen @ home, productive cough, shortness of breath at rest or wheezing Gastrointestinal Gastrointestinal: Reports abdominal pain, dry heaves, nausea and vomiting Genitourinary Genitourinary: Denies change in urinary stream, difficulty urinating, dribbling, dysuria, flank pain, hematuria, nocturia, oliguria, post void dribbling, urinary frequency, urinary hesitancy, urinary incontinence or urinary urgency Musculoskeletal Musculoskeletal: Denies abnormal gait, arthralgias, joint stiffness, joint swelling, muscle cramps or myalgias Integumentary Integumentary: Denies dry skin, erythema, jaundice, lesions, pruritus, rash or skin ulcer Neurologic Neurologic: Denies abnormal gait, burning sensations, confusion, focal weakness, frequent falls, headache(s), numbness, restless legs, seizures, syncope, tremor(s) or weakness Psychiatric Psychiatric: Denies anxiety, confusion, depression or hallucinations Physical Exam Narrative Young male, who appears very uncomfortable, moaning, answers simple questions He is perspiring profusely Skin with chronic changes, most likely due to Imuran Oral mucosa is dry Lungs are clear Heart is regular Abdomen appears soft, mild tenderness in the epigastrium, good bowel sounds Lower extremities without edema Pedal pulses are weak Medical Records Data Attestation: I reviewed the patient's medical records Lab / Micro Data Attestation: I reviewed the patient's lab results. 05/19/24 08:00 05/19/24 08:00 Labs: Laboratory Results - last 24 hr 05/18/24 22:27: WBC 2.7 L, RBC 2.98 L, Hgb 8.4 L, Hct 26.9 L, MCV 90.3, MCH 28.2, MCHC 31.2 L, RDW Std Deviation 43.8, RDW Coeff of Adamaris 13.4, Plt Count 108 L, MPV 10.1, Immature Gran % (Auto) 3.000 H, Neut % (Auto) 65.2, Lymph % (Auto) 14.6 L, [place] % (Auto) 16.8 H, Eos % (Auto) 0.0, Baso % (Auto) 0.4, Absolute Neuts (auto) 1.8 L, Absolute Lymphs (auto) 0.39 L, Nucleated RBC % 0, Differential Comment SCANNED, Diff Path Review February, ESR < 1, Sodium 132 L, Potassium 4.0, Chloride 99, Carbon Dioxide 27.0, Anion Gap 6, BUN 45 H, Creatinine 3.06 H, Estim Creat Clear Calc 23.61, Est GFR (MDRD) Af Amer 27 L, Est GFR (MDRD) Non-Af 23 L, BUN/Creatinine Ratio 14.7, Glucose 93, Lactic Acid 1.1, Calcium 9.7, C-React Prot Ext Range 13.70 H, Procalcitonin 0.25 H 05/18/24 23:55: Urine Color Yellow, Urine Clarity Clear, Urine pH 6.5, Ur Specific [place] 1.010, Urine Protein 30 H, Urine Glucose (UA) Normal, Urine Ketones Negative, Urine Occult Blood Negative, Urine Nitrite Negative, Urine Bilirubin Negative, Urine Urobilinogen Normal, Ur Leukocyte Esterase 100 H, Urine RBC 0 SEEN, Urine WBC 0-5 SEEN, Ur Squamous Epith Cells 0 SEEN, Urine Bacteria 0 SEEN, Urine Mucus 0 SEEN 05/19/24 02:50: Lactic Acid 1.1 05/19/24 06:25: Procalcitonin 6.84 H, Cortisol 4.60 05/19/24 08:00: WBC 1.9 L, RBC 2.80 L, Hgb 7.9 L, Hct 25.9 L, MCV 92.5, MCH 28.2, MCHC 30.5 L, RDW Std Deviation 46.0 H, RDW Coeff of Adamaris 13.5, Plt Count 76 L, MPV 10.8, Neut % (Auto) Not Reportable, Absolute Neuts (auto) 1.6 L, Absolute Lymphs (auto) 0.37 L, Total Counted 50, Neutrophils % (Manual) 34 L, Band Neutrophils % 24 H, Lymphocytes % (Manual) 20, Metamyelocytes % 18 H, Myelocytes % 4 H, Diff Path Review February, Platelet Estimate SLT SEP, RBC Morphology NORM C+C, Sodium 135 L, Potassium 4.5, Chloride 105, Carbon Dioxide 26.0, Anion Gap 4 L, BUN 50 H, Creatinine 3.43 H, Estim Creat Clear Calc 20.51, Est GFR (MDRD) Af Amer 24 L, Est GFR (MDRD) Non-Af 20 L, BUN/Creatinine Ratio 14.6, Glucose 70 L, Calcium 8.1 L, Phosphorus 2.6, Magnesium 1.4 L, Total Bilirubin 1.00, AST 14 L, ALT 14 L, Alkaline Phosphatase 59, Troponin I High Sens 256 H*, Total Protein 4.6 L, Albumin 2.7 L, Globulin 1.9 L, Albumin/Globulin Ratio 1.4 05/19/24 09:45: Troponin I High Sens 335 H* Micro: Microbiology 05/18/24 22:37 Mucosa - Nose SARS-CoV-2, Influenza & RSV (PCR) - Final Imaging Radiology Impression Chest X-Ray 05/18/24 23:05 IMPRESSION: Small left pleural effusion. Calcified pleural plaques are noted bilaterally. Electronically Signed: Estephania Luque MD at 23:39 EDT , Chest/Abdomen/Pelvis CT 05/19/24 02:08 IMPRESSION: There is an ill-defined nodule in the superior segment of the right lower lobe measures 7 mm has nonspecific appearance, axial image 41, series 2. A follow-up in 6 months would be helpful to ensure stability. Electronically Signed: Estephania Luque MD at 4:12 EDT , Chest X-Ray 05/19/24 07:30 IMPRESSION: Stable examination. A left-sided internal jugular venous catheter has been placed with the tip at the junction of the superior vena cava and left brachiocephalic vein. The remainder of the examination is unchanged. Electronically Signed: Gabe Nichols MD at 8:20 EDT ,
[2024-05-19] MEDS: Pantoprazole Sodium 40 MG in 0.9% Normal Saline (100mL MB+) 100 ML 330 MG IV ×2 (11:05→21:58)
[2024-05-19] MEDS: 0.9% Normal Saline (250mL Bag) 250 ML 15 ML IV ×3 (11:06→17:28)
[2024-05-19] MEDS: Norepinephrine 8 MG in 0.9% Normal Saline (250mL Bag) 242 ML 56.3 MG CONT INF ×2 (12:15→16:25)
--- NOTE | 2024-05-19 12:46 | CASEMGMT ---
Social Work- SW met with pt and to offer supports. Pt was agitated and anxious, often calling out help me and stating I think I'm rejecting my kidney. Pt reports that he had the kidney transplant 14 years ago. Pt reports that he and have been 12 years. reports that she has been present in room for 48 hours. SW encouraged to go for a walk or get some food/drink while someone was present with pt. Pt , Stephany, declined. Pt son, Jan, arrived part way through the visit. Pt often reported that he felt SOB and was observed to exhibit hypermotor agitation. Pt was easily redirected by SW with breathing exercises and grounding exercises. Pt and refused denture processor services. Pt would like to return to where the transplant was done, however, at this time would not accept pt. Other family is commuting to [facility] at this time. Pt and decline any support needs at this time. SW remains available to follow. ANITA Higgins
--- NOTE | 2024-05-19 13:31 | CASEMGMT ---
RN CM attempted to see pt several times today for assessment, pt medically unstable. Deferred assessment at this time.
[2024-05-19] MEDS: Phenylephrine 10 MG in 0.9% Normal Saline (250mL Bag) 249 ML 105 MG CONT INF ×2 (13:51→16:24)
--- NOTE | 2024-05-19 14:52 | CHAPLAIN ---
Type of Pastoral Visit ___ Initial Visit ___ Follow-up Visit ___ On-call Visit ___ General Patient Visit ___ Spiritual Assessment ___ Family Conference ___ Bereavement ___ Rapid Response ___ Code Blue ___ Other (describe below) Pastoral Care Referral From ___ Patient ___ Family ___ Nurse ___ Physician ___ Corral Boss ___ Theatrical Performer ___ Other (describe below) Sacrament/Intervention ___ Active listening ___ Anointing ___ Rastafari ___ Bereavement ___ Communion ___ Irina exploration ___ ___ Life review ___ Prayer ___ Reconciliation ___ Sacrament of Sick ___ Supportive presence ___ Wedding ___ Other (describe below) Pastoral Comments two RN's and the SW acknowledge that patient is not doing very well and that spouse is very concerned about his pain and discomfort; spouse indicates that pain management will be helpful and asks for more meds even though that will impact his flood pressures; RN asks spouse is the rolled glass crosscutter can stop by to visit but she denies need at this time
[2024-05-19 15:31] LABS: Pathologist Review Reviewed
--- NOTE | 2024-05-19 16:16 | NURSING ---
Patient thrashing in bed. C/o SOB, O2 88%, increased to 6L NC, O2 now 95%
--- NOTE | 2024-05-19 16:49 | PCM.HOSP.N ---
Hospitalist Note Patient maximized on 3 pressors, patient agitated. Somewhat redirectable at times but overall increasingly agitated. Discussed with family that medicines treat agitation are likely to worsen blood pressure and given his blood pressure is still low on 3 pressors that patient will need to be redirected and managed without medication at this time they verbalized their understanding. Discussed CODE STATUS with and sister and other family members at bedside. Discussed the difference between full code, DNR CCA arrest and DNRCC and family wants to discuss this further before making a decision to change this at this time. Also, did discuss with ID and given patient's continued unstable state it was advised to begin daptomycin 8 mg/kg every 48 hours and continue the Zosyn. Stress dose steroids also continued
--- NOTE | 2024-05-19 17:13 | EX.PCM.CON.S ---
Assessment & Plan Assessment/Plan (1) DVT (deep venous thrombosis): PLAN: He has acute right common femoral vein DVT. At this time with thrombocytopenia and low hemoglobin unable to tolerate anticoagulation so he is a candidate for IVC filter placement. Unfortunately, at present he is requiring 3 vasopressors and still hypotensive so he is felt to be too unstable to tolerate the procedure. If his status improves, then could consider IVC filter placement tomorrow. IVC filter insertion procedure details including risks, benefits, and recovery were discussed with his family and they are agreeable to proceed when patient becomes stable enough to do so. Will continue to monitor. HPI Consult Data Date of Consult: 05/19/24 HPI Narrative HPI Narrative: MARIAN BARROSO, is a 54 M who presented to the [facility] ER today with generalized malaise, chills, and fever of 101.6. He had workup including negative urinalysis, negative CT chest abdomen pelvis, CBC showing pancytopenia, CMP showing creatinine 3.06, negative for COVID, influenza, and RSV. He did develop hypotension while in the ER and was ultimately admitted to the ICU on vasopressor support. He has been started on empiric antimicrobials and ID is on board. At present he is maximized on 3 vasopressors, still hypotensive. Platelets 76,000, hemoglobin 7.8. He does have a history of prior DVT/PE and recent testing positive for heterozygous factor V Leiden. Venous duplex today showed acute DVT in the right common femoral vein extending from the great saphenous vein. Upper extremity venous duplex showed acute DVT in the right subclavian vein and chronic DVT in the right internal jugular vein. We are consulted for consideration for IVC filter placement. His medical history is otherwise significant for history of renal transplant x 2 (most recent 2009) on chronic immunosuppression, CAD status post CABG, COPD, chronic anemia, PAD s/p femoropopliteal bypass. At present, he is a full code but family is considering decision to change this status. 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 Pulmonary embolism Neurogenic bladder Hyperparathyroidism Hyperhomocystinemia GERD (gastroesophageal reflux disease) DVT (deep venous thrombosis) Depression Claudication VIC (obstructive sleep apnea) Chronic obstructive pulmonary disease (COPD) Chronic kidney disease, stage 3 Home Medications ?Medication ?Instructions ?Recorded ?Last Taken ?Type aspirin 81 mg chewable tablet 81 mg PO DAILY health maintenance 02/21/14 07/21/19 History doxazosin 8 mg tablet (Cardura) 8 mg PO DAILY BLADDER 02/21/14 07/21/19 History mycophenolate mofetil 500 mg tablet 500 mg PO BID ANTI-REJECTION 02/21/14 07/21/19 History omeprazole 20 mg capsule,delayed 20 mg PO DAILY ACID REFLUX 02/21/14 07/21/19 History release magnesium oxide 400 mg (241.3 mg 400 mg PO BID SUPPLEMENT 12/25/17 07/21/19 History magnesium) tablet (MgO) atorvastatin 80 mg tablet 80 mg PO DAILY cholesterol 12/30/17 07/21/19 History carvedilol 25 mg tablet 25 mg PO BID blood pressure 12/30/17 07/21/19 History tacrolimus 0.5 mg capsule,extended 2 mg PO DAILY 10/04/21 Unknown History release 24 hr (Astagraf XL) acetaminophen 500 mg tablet 1,000 mg PO Q8 PRN fever or pain 11/15/23 Unknown History amlodipine 5 mg tablet (Norvasc) 5 mg PO DAILY 11/15/23 Unknown History albuterol sulfate 90 mcg/actuation 1 - 2 puff inhalation Q4H PRN PRN 11/20/23 Unknown Rx aerosol inhaler Shortness Of Breath ##1 ferrous sulfate 325 mg (65 mg 325 mg PO DAILY 05/19/24 Unknown History iron) tablet furosemide 40 mg tablet 40 mg PO DAILY 05/19/24 Unknown History gabapentin 300 mg capsule 300 mg PO TID PRN pain 05/19/24 Unknown History ipratropium 0.5 mg-albuterol 3 mg 3 ml inhalation Q6H PRN PRN 05/19/24 Unknown History (2.5 mg base)/3 mL nebulization wheezing soln prednisone 5 mg tablet 5 mg PO DAILY 05/19/24 Unknown History Allergy/AdvReac Type Severity Reaction Status Date / Time propoxyphene napsylate (From Allergy Hives Verified 05/18/24 20:11 Darvocet-N) venom-honey bee (bee venom Allergy Hives Verified 05/18/24 20:11 (honey bee)) Family History Father Arthritis Cancer Lung cancer, 1990 CAD (coronary artery disease) Mother CAD (coronary artery disease) Diet 2012 Surgical History History of quadruple bypass S/P pericardial window creation (~1991) History of lung biopsy (~2007) Renal transplant recipient History of renal transplant Social History Smoking Status: Former smoker pack-years: 19 Tobacco: How many years used: 15 Physical Exam Const Constitutional Narrative: Somnolent, lethargic HEENT normocephalic and head/scalp atraumatic Eyes General Eye: normal appearance of both eyes Neck General: normal visual inspection Resp normal respiratory effort Cardio Rate: regular rate Rhythm: regular rhythm Extremity normal to inspection Lab / Micro Data 05/19/24 08:00 05/19/24 08:00 Labs: Laboratory Results - last 24 hr 05/18/24 22:27: WBC 2.7 L, RBC 2.98 L, Hgb 8.4 L, Hct 26.9 L, MCV 90.3, MCH 28.2, MCHC 31.2 L, RDW Std Deviation 43.8, RDW Coeff of Adamaris 13.4, Plt Count 108 L, MPV 10.1, Immature Gran % (Auto) 3.000 H, Neut % (Auto) 65.2, Lymph % (Auto) 14.6 L, [place] % (Auto) 16.8 H, Eos % (Auto) 0.0, Baso % (Auto) 0.4, Absolute Neuts (auto) 1.8 L, Absolute Lymphs (auto) 0.39 L, Nucleated RBC % 0, Differential Comment SCANNED, Diff Path Review Reviewed, ESR < 1, Sodium 132 L, Potassium 4.0, Chloride 99, Carbon Dioxide 27.0, Anion Gap 6, BUN 45 H, Creatinine 3.06 H, Estim Creat Clear Calc 23.61, Est GFR (MDRD) Af Amer 27 L, Est GFR (MDRD) Non-Af 23 L, BUN/Creatinine Ratio 14.7, Glucose 93, Lactic Acid 1.1, Calcium 9.7, C-React Prot Ext Range 13.70 H, Procalcitonin 0.25 H 05/18/24 23:55: Urine Color Yellow, Urine Clarity Clear, Urine pH 6.5, Ur Specific [place] 1.010, Urine Protein 30 H, Urine Glucose (UA) Normal, Urine Ketones Negative, Urine Occult Blood Negative, Urine Nitrite Negative, Urine Bilirubin Negative, Urine Urobilinogen Normal, Ur Leukocyte Esterase 100 H, Urine RBC 0 SEEN, Urine WBC 0-5 SEEN, Ur Squamous Epith Cells 0 SEEN, Urine Bacteria 0 SEEN, Urine Mucus 0 SEEN 05/19/24 02:50: Lactic Acid 1.1 05/19/24 06:25: Procalcitonin 6.84 H, Cortisol 4.60 05/19/24 08:00: WBC 1.9 L, RBC 2.80 L, Hgb 7.9 L, Hct 25.9 L, MCV 92.5, MCH 28.2, MCHC 30.5 L, RDW Std Deviation 46.0 H, RDW Coeff of Adamaris 13.5, Plt Count 76 L, MPV 10.8, Neut % (Auto) Not Reportable, Absolute Neuts (auto) 1.6 L, Absolute Lymphs (auto) 0.37 L, Total Counted 50, Neutrophils % (Manual) 34 L, Band Neutrophils % 24 H, Lymphocytes % (Manual) 20, Metamyelocytes % 18 H, Myelocytes % 4 H, Diff Path Review February, Platelet Estimate SLT DEC, RBC Morphology NORM C+C, Sodium 135 L, Potassium 4.5, Chloride 105, Carbon Dioxide 26.0, Anion Gap 4 L, BUN 50 H, Creatinine 3.43 H, Estim Creat Clear Calc 20.51, Est GFR (MDRD) Af Amer 24 L, Est GFR (MDRD) Non-Af 20 L, BUN/Creatinine Ratio 14.6, Glucose 70 L, Calcium 8.1 L, Phosphorus 2.6, Magnesium 1.4 L, Total Bilirubin 1.00, AST 14 L, ALT 14 L, Alkaline Phosphatase 59, Troponin I High Sens 256 H*, Total Protein 4.6 L, Albumin 2.7 L, Globulin 1.9 L, Albumin/Globulin Ratio 1.4 05/19/24 09:45: Troponin I High Sens 335 H*, Blood Type O NEGATIVE, Antibody Screen POSITIVE, Antibody Identification ANTI-D 05/19/24 11:00: Tacrolimus Cancelled, Tacrolimus Comment Cancelled Micro: Microbiology 05/19/24 07:10 Mucosa - Nasopharyngeal Respiratory Panel (PCR) - Final 05/18/24 22:37 Mucosa - Nose SARS-CoV-2, Influenza & RSV (PCR) - Final Imaging Radiology Impression Chest X-Ray 05/18/24 23:05 IMPRESSION: Small left pleural effusion. Calcified pleural plaques are noted bilaterally. Electronically Signed: Estephania Luque MD at 23:39 EDT , Chest/Abdomen/Pelvis CT 05/19/24 02:08 IMPRESSION: There is an ill-defined nodule in the superior segment of the right lower lobe measures 7 mm has nonspecific appearance, axial image 41, series 2. A follow-up in 6 months would be helpful to ensure stability. Electronically Signed: Estephania Luque MD at 4:12 EDT , Echocardiogram 05/19/24 06:40 Interpretation Summary The left ventricular ejection fraction is 50 %. Left ventricular systolic function is lower limits of normal. Stage 2 diastolic dysfunction. Mild (1+) aortic valve insufficiency. Ordering Physician: Trey Ro Referring Physician: Atul Saab Performed By: Veronica Levy RDCS Chest X-Ray 05/19/24 07:30 IMPRESSION: Stable examination. A left-sided internal jugular venous catheter has been placed with the tip at the junction of the superior vena cava and left brachiocephalic vein. The remainder of the examination is unchanged. Electronically Signed: Gabe Nichols MD at 8:20 EDT , Venous Doppler Study 05/19/24 08:06 Interpretation Summary Acute deep vein thrombosis is noted in the right common femoral vein. Acute superficial vein thombosis noted in the right saphenofemoral junction, great saphenous vein. Ordering Physician: Trey Ro Referring Physician: Sharonda Tate Performed By: Ester Bergman RVT Venous Doppler Study 05/19/24 08:11 Interpretation Summary Acute deep vein thrombosis noted in the right subclavian vein. Chronic deep vein thrombosis noted in the right internal jugular vein. Deep veins of the left upper extremity are patent and compressible segmentally. There is no evidence of deep vein thrombosis. Multiple failed AV fistulas bilateral Ordering Physician: Trey Ro Referring Physician: Sharonda Tate Performed By: Ester Bergman RVT ??? Charges/Coding Visit Charges Office Visits / Consults: 26817 IP Consult L2
[2024-05-19] MEDS: DAPTOmycin 500mg/10ml Vial 500 MG in 0.9% Normal Saline (50mL Bag) 50 ML 116 MG IV (17:28)
[2024-05-19] MEDS: Phenylephrine 40 mg/250 mL 0.9% NS 26.3 MG CONT INF (18:41)
[2024-05-19] MEDS: Ipratropium/Albuterol Sulfate 3 ML AMPUL.NEB INHALATION (19:03)
[2024-05-19] MEDS: Norepinephrine 16 mg/250 mL 0.9% NS 28.1 MG CONT INF (21:02)
[2024-05-19] MEDS: dexMEDEtomidine 400 MCG in 0.9% Normal Saline (100mL Bag) 96 ML 7.5 MCG CONT INF (22:45)
[2024-05-19 23:15] LABS: Base Excess -15 mmol/L (-2 to +2); Bicarbonate 14.4 mmol/L (22-26); Blood Gas Specimen Type ART; Mode Not entered; O2 Delivery Device Cannula; PO2 173 mmHG (75-100); SITE Art Line; SO2 99 % (95-99); Total Carbon Dioxide 16 mmol/L; pCO2 41.1 mmHg (35-45); pH 7.15 (7.35-7.45)
[2024-05-19] MEDS: Etomidate 20 MG/10 ML Vial 10 MG IV (23:42)
[2024-05-19] MEDS: fentaNYL drip 100 ML 2.5 MCG CONT INF (23:45)
--- NOTE | 2024-05-19 23:49 | RAD_ITS ---
INDICATION: INTUBATION EXAMINATION/TECHNIQUE: X-RAY - XR Chest 1 View COMPARISON: No relevant prior comparison study available FINDINGS: LINES/DEVICES: Central venous line is seen on the left side its tip is at the lower part of the superior vena cava. Endotracheal tube is seen its tip is 1.0 cm superior to the mallory. An NG tube is seen its tip is below the diaphragm is in good position. LUNGS: Ill-defined airspace opacity in the left lung base suggesting pneumonia. Calcified pleural plaques noted bilaterally. Small right pleural effusion. MEDIASTINUM AND CARDIOVASCULAR STRUCTURES: Cardiac silhouette not enlarged. Central airways and mediastinal contour are unremarkable. BONES AND SOFT TISSUES: Unremarkable. RAD/Chest 1 View (Portable) IMPRESSION: Ill-defined airspace opacity in the left lung base suggesting pneumonia. Calcified pleural plaques noted bilaterally. Small right pleural effusion. Electronically Signed: Estephania Luque MD at 2:24 EDT ,
[2024-05-19] MEDS: Midazolam 50 MG in 0.9% Normal Saline (100mL Bag) 90 ML CONT INF (23:56)
--- NOTE | 2024-05-19 23:56 | NURSING ---
Based on blood gas results and pt presentation, Dr. Banks recommended intubation. Dr. Aragon at bedside to prepare for intubation. Pt's sister at bedside, and pt's called and updated by primary RN. 2341: 4 mg zofran IVP x1 given. 2342: 10 mg etomidate IVP x1 given. 2343: Pt intubated with 7.5 mm ETT, 25 @ lip, bilateral breath sounds and positive color change noted. 2345: OG placed, soft wrist restraints applied to maintain line/tube integrity.
[2024-05-20] VITALS (60 sets, daily range): BP systolic 78–115; BP diastolic 50–79; PULSE 61–82; RESP 18–28; TEMP 35.8–37.4; O2SAT 30–100; BMI 23.9
[2024-05-20] MEDS: Sodium Bicarbonate 8.4% 50 ML Syringe 100 MEQ IV (00:03)
[2024-05-20] MEDS: Sodium Bicarbonate 150 MEQ in Dextrose 5%-Water (1000mL Bag) 1,000 ML IV ×2 (00:11→06:56)
[2024-05-20] MEDS: Hydrocortisone Sod Succinate 100 MG/2 ML Vial 50 MG IV ×4 (00:18→17:16)
--- NOTE | 2024-05-20 00:31 | PCM.HOSP.N ---
Hospitalist Note I was called by NEUROBIOLOGIST and informed that this patient was but becoming agitated and breathless. The patient was ordered Precedex drip to help keep him calm while an ABG was checked which revealed a pH of 7.15 with a pCO2 of 41.1, pO2 of 173 and bicarbonate of 14.4 with oxygen saturation of 99% on 6L NC. The tele-tape maker physician recommended immediate intubation with patient also agreeable to emergent intubation. The patient was premedicated with etomidate 10 mg IV once and then he was intubated on the first attempt using [place] Scope guidance with ET tube advanced to 25 cm at the lip. Preliminary read of his chest x-ray reveals ET tube ~1 cm above the mallory with new LLL infiltrate. The patient's sister was at the bedside during the procedure and her questions were answered to the best of my ability. NEUROBIOLOGIST was updated with plan. RUN DATE: 05/20/24 [facility], DEPARTMENT OF LABORATORIES PAGE 1 RUN TIME: 0031 Specimen Inquiry [address], [place], [place], [id number] PATIENT: MARIAN BARROSO LOC: ICU U #: [id number] : 1970 AGE/SX: 54/M FACILITY: [facility] ROOM: [place] [address] RE05/19/[address]: Dr. Lian Soler MD STATUS:ADM IN ED: 1 DIS: ~ SPEC #: [id number] JONH: 05/19/24 STATUS: COMP REQ #: [id number] RECD: 05/19/[address]: Dr. Lian Soler MD ENTERED: 05/19/[address]: MD Dr. Guillaume Fischer MD Dr. Derek Brown, DO Dr. David de Lorenzo, DO Dr. David Myers, MD Dr. Edward Matheis, MD Dr. Eric Turney, MD Dr. Gautam Baskaran, MD Dr. Yordanos Habtegebriel, MD Dr. Hemant Dand, MD Dr. Jayaprakas Dasari, MD Dr. Jose Ochoa, MD Dr. Kimber Foust, MD Dr. Lamia Aljundi, MD Dr. Fernandez Joan, MD Dr. Gerardo Irukulla, MD Dr. Arnie Madison, MD Dr. Rosales Jocelyn, MD Dr. Roger César, MD Dr. Ranjan Zuhair, MD M Atul Tate, PA ~ Test Result Flag Adult Reference Range IBG Blood Gas Type ART SITE Art Line Mode Not entered O2 Delivery Dev Cannula FI02 6.0 Time Given 23:13:11 Results To Aragon Read Back By Yes pH 7.15 *L 7.35-7.45 pCO2 41.1 35-45 mmHg PO2 173 H 75-100 mmHG HCO3 14.4 L 22-26 mmol/L BE -15 L -2 to +2 mmol/L TOTAL CO2 16 mmol/L SO2 99 95-99 % [facility] Imaging Services [address] [place] [address] Chest 1 View (Portable) MR#: [id number] Acct: [id number] Name: MARIAN BARROSO Rep #: [id number] : 1970 M 54 From: Estephania Luque MD PCP: ENIO Gold Status: ADM IN Study: Chest 1 View (Portable) Date of Exam: 05/19/24 Exam# [id number] Ordering Dr: Marian Aragon DO INDICATION: INTUBATION EXAMINATION/TECHNIQUE: X-RAY - XR Chest 1 View COMPARISON: No relevant prior comparison study available FINDINGS: LINES/DEVICES: Central venous line is seen on the left side its tip is at the lower part of the superior vena cava. Endotracheal tube is seen its tip is 1.0 cm superior to the mallory. An NG tube is seen its tip is below the diaphragm is in good position. LUNGS: Ill-defined airspace opacity in the left lung base suggesting pneumonia. Calcified pleural plaques noted bilaterally. Small right pleural effusion. MEDIASTINUM AND CARDIOVASCULAR STRUCTURES: Cardiac silhouette not enlarged. Central airways and mediastinal contour are unremarkable. BONES AND SOFT TISSUES: Unremarkable. RAD/Chest 1 View (Portable) IMPRESSION: Ill-defined airspace opacity in the left lung base suggesting pneumonia. Calcified pleural plaques noted bilaterally. Small right pleural effusion. Electronically Signed: Estephania Luque MD at 2:24 EDT Reading Location ID and State: [address] [place] [address] Tel , Service support , CC: Dr. Marian Aragon DO; ENIO Godl ~ Furnace Converter: Signed RUN DATE: 05/20/24 [facility], DEPARTMENT OF LABORATORIES PAGE 1 RUN TIME: 0100 Specimen Inquiry [address], [place], [address] PATIENT: MARIAN BARROSO LOC: ICU U #: [id number] : 1970 AGE/SX: 54/M FACILITY: [facility] ROOM: [place] [address] RE05/19/[address]: Dr. Lian Soler MD STATUS:ADM IN ED: 1 DIS: ~ SPEC #: [id number] JONH: 05/20/24 STATUS: COMP REQ #: [id number] RECD: 05/20/[address]: Dr. Lian Soler MD ENTERED: 05/20/[address]: MD Dr. Guillaume Fischer MD Dr. Derek Brown, DO Dr. David de Lorenzo, DO Dr. David Myers, MD Dr. Edward Matheis, MD Dr. Eric Turney, MD Dr. Gautam Baskaran, MD Dr. Yordanos Habtegebriel, MD Dr. Hemant Dand, MD Dr. Jayaprakas Dasari, MD Dr. Jose Ochoa, MD Dr. Kimber Foust, MD Dr. Lamia Aljundi, MD Dr. Pritam Ghosh, MD Dr. Pavan Irukulla, MD Dr. Robert Leininger, MD Dr. Saad Farooqi, MD Dr. Vikram Anand, MD Dr. William Haden, MD M Gregory Barton, PA ~ Test Result Flag Adult Reference Range IBG Blood Gas Type ART SITE Art Line Mode AC O2 Delivery Dev Adult Vent Vt 450.0 mL RR 28 FI02 100.0 PEEP 5 Time Given 00:55:45 Results To [facility] Read Back By Yes pH 7.51 H 7.35-7.45 pCO2 23.7 L 35-45 mmHg PO2 446 *H 75-100 mmHG HCO3 18.9 L 22-26 mmol/L BE -4 L -2 to +2 mmol/L TOTAL CO2 20 mmol/L SO2 100 H 95-99 % END OF REPORT
[2024-05-20] MEDS: 0.9% Saline Lock 10 ML Syringe IV (00:56)
[2024-05-20 00:59] LABS: Base Excess -4 mmol/L (-2 to +2); Bicarbonate 18.9 mmol/L (22-26); Blood Gas Specimen Type ART; Mode AC; O2 Delivery Device Adult Vent; PEEP 5; PO2 446 mmHG (75-100); RR 28; SITE Art Line; SO2 100 % (95-99); Total Carbon Dioxide 20 mmol/L; pCO2 23.7 mmHg (35-45); pH 7.51 (7.35-7.45)
[2024-05-20] MEDS: dexMEDEtomidine 400 MCG in 0.9% Normal Saline (100mL Bag) 96 ML 19.4 MCG CONT INF (04:00)
[2024-05-20] MEDS: Piperacil/Tazobactam 3.375 GM in 0.9% Normal Saline (50mL MB+) 50 ML IV ×2 (05:20→17:15)
[2024-05-20 05:33] LABS: Base Excess -5 mmol/L (-2 to +2); Bicarbonate 18.8 mmol/L (22-26); Blood Gas Specimen Type ART; Mode AC; O2 Delivery Device Adult Vent; PEEP 5; PO2 81 mmHG (75-100); RR 22; SITE Art Line; SO2 97 % (95-99); Total Carbon Dioxide 20 mmol/L; pCO2 26.9 mmHg (35-45); pH 7.45 (7.35-7.45)
[2024-05-20 05:34] LABS: Hematocrit 28.5 % (40-54); Hemoglobin 9.3 g/dL (13.0-16.5); Mean Corp Hgb Conc 32.6 g/dL (32-36); Mean Corpuscular Hgb 28.8 pg (27.0-32.0); Mean Corpuscular Volume 88.2 fL (80-94); Mean Platelet Vol. 11.6 fl (6.2-12.0); POSITIVE COUNT YES; POSITIVE DIFFERENTIAL YES; POSITIVE MORPHOLOGY YES; Platelet Count 108 K/mm3 (150-450); RBC Distribution Width CV 13.7 % (11.6-14.6); RBC Distribution Width SD 44.7 fl (35.1-43.9); Red Blood Count 3.23 M/mm3 (4.6-6.2); White Blood Count 11.2 K/mm3 (4.4-11.0)
[2024-05-20 05:50] LABS: Differential Indicated MANUAL DIFF
--- NOTE | 2024-05-20 05:55 | RAD_ITS ---
INDICATION: ON VENT EXAMINATION/TECHNIQUE: X-RAY - XR Chest 1 View COMPARISON: CR ChestAug 2023 11:48pm FINDINGS: LINES/DEVICES: Central venous line is seen on the left side its tip is at the lower part of the superior vena cava. Endotracheal tube is seen its tip is 1.0 cm superior to the mallory. An NG tube is seen its tip is below the diaphragm is in good position. LUNGS: Ill-defined airspace opacity in the left lung base suggesting pneumonia. Calcified pleural plaques noted bilaterally. Small right pleural effusion. MEDIASTINUM AND CARDIOVASCULAR STRUCTURES: Cardiac silhouette not enlarged. Central airways and mediastinal contour are unremarkable. BONES AND SOFT TISSUES: Unremarkable. RAD/Chest 1 View (Portable) IMPRESSION: Ill-defined airspace opacity in the left lung base suggesting pneumonia. Calcified pleural plaques noted bilaterally. Small right pleural effusion. Electronically Signed: Estephania Luque MD at 6:44 EDT ,
[2024-05-20 05:58] LABS: ALB/GLOB Ratio 1.2 RATIO (0.9-2.4); AST(SGOT) 52 U/L (15-37); Alanine Aminotransfer ALT/SGPT 37 U/L (16-61); Albumin, Serum 2.5 g/dL (3.2-5.0); Alkaline Phosphatase 29 U/L (45-117); Anion Gap 11 (5-15); BUN 62 mg/dL (7-18); BUN/Creat Ratio 15.9 RATIO (10-20); Calcium,Total 7.5 mg/dL (8.5-10.1); Chloride 106 mmol/L (98-107); EST Glomerular Filtration Rate 17 mL/min (>60); Est Glom Filt Rate - Afr Amer 21 mL/min (>60); Estimated Creatinine Clearance 18.62 ml/min; Globulin 2.1 g/dL (2.2-4.2); Glucose 137 mg/dL (74-106); Potassium 4.9 mmol/L (3.5-5.1); Protein, Total 4.6 g/dL (6.4-8.2); Sodium Level 137 mmol/L (136-145); Thyroid Stim Hormone (TSH) 0.405 uIU/mL (0.358-3.740)
[2024-05-20 06:29] LABS: Lymphocyte 9 % (19-41); Metamyelocyte 1 % (0-1); Monocyte 16 % (0-10); Myelocyte 1 % (0-0); Neutrophil-Band 32 % (0-5); Neutrophil-Segmented 41 % (47-70); Total Cells Counted 100 (MANUAL DIFF)
[2024-05-20 06:30] LABS: Absolute Neutrophil Count 8.2 X10^3/uL (2.0-7.7); Differential Comment SCANNED; Vacuolated Cells 1+
[2024-05-20 06:31] LABS: Absolute Lymphocyte Count 1.01 X10^3/uL (0.83-4.51)
[2024-05-20] MEDS: Norepinephrine 16 mg/250 mL 0.9% NS 9.4 MG CONT INF (06:58)
--- NOTE | 2024-05-20 07:14 | PN.CC_ITS ---
Assessment & Plan Assessment/Plan (1) Sepsis: QUALIFIERS: Acute renal failure type: unspecified Sepsis acute organ dysfunction status: with acute organ dysfunction Sepsis type: sepsis due to unspecified organism Severe sepsis acute organ dysfunction type: acute renal failure Severe sepsis shock status: without septic shock Qualified Code(s): A 41.9 - Sepsis, unspecified organism; R65.20 - Severe sepsis without septic shock; N17.9 - Acute kidney failure, unspecified (2) [place] (acute kidney injury): (3) Fever of unknown origin: PLAN: Plan RECOMMENDATIONS: 1. Continue assist-control mode of mechanical ventilation. Wean FiO2 and PEEP for saturations greater than 90%. 2. Continue antimicrobials per ID recommendations. 3. Wean Levophed to maintain a mean arterial pressure at or above 65 mmHg. 4. Discontinue Versed infusion. Continue Precedex and fentanyl for sedation. 5. Will defer ongoing need for sodium bicarbonate infusion to nephrology. 6. Continue stress dose steroids. 7. Continue to monitor blood counts and transfuse if hemoglobin drops below 7 g/dL. Continue PPI therapy as ordered. 8. Will attempt a weight-based heparin infusion today. If the patient were to bleed or develop worsening anemia, IVC filter can be placed. IMPRESSIONS: 1. Undifferentiated shock/fever of unknown origin The patient presented to the hospital with generalized malaise, fevers and chills. The patient is chronically immunosuppressed due to a history of renal transplantation. No definitive source of infection has yet to be identified. Nevertheless, the patient will be continued on empiric antibiotics for now, under the discretion of infectious diseases. The patient's baseline immunosuppression therapy will be placed on hold. While obstructive shock from PE is a possibility as well, we are unable to obtain a CTA chest due to his underlying renal insufficiency. Nevertheless, the patient did have a right lower extremity DVT, for which he will be initiated on a weight-based heparin infusion. Echocardiogram was largely unrevealing. The patient will be continued on vasopressor support to maintain a mean arterial pressure at or above 65 mmHg, along with stress dose steroids. 2. Acute hypoxemic respiratory failure The patient was ultimately intubated on May 20 due to increased work of breathing in the setting of worsening metabolic acidosis. His acid-base status has improved with invasive mechanical ventilatory support. Continue assist- control mode mechanical ventilation. Wean FiO2 and PEEP to maintain saturations at or above 90%. 3. Acute on chronic kidney disease Clinical concern for prerenal etiology in the setting of #1. The patient is immunosuppressed at baseline without any missed doses, according to . Will obtain nephrology consultation at this time. Continue supportive care as noted above. 4. 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 Repeat lower extremity Doppler study did reveal an acute DVT in the right common femoral vein. I do suspect that the patient is at high risk for PE as well. However, given his underlying renal insufficiency, CTA chest is not able to be completed. In light of the aforementioned, I am going to place the patient on a weight-based heparin infusion, despite his baseline anemia and thrombocytopenia. If the patient bleeds or develops worsening anemia, will discontinue heparin and proceed with IVC filter placement. 5. Chronic anemia and thrombocytopenia Continue to monitor blood counts and transfuse if hemoglobin drops below 7 g/dL. Continue PPI therapy as ordered. 6. History of coronary artery disease status post CABG/peripheral vascular disease/hypertension/hyperlipidemia/history of tobacco dependency Complicates care, management, recovery and prognosis. Continue to hold home antihypertensives. Tube feeding can be initiated from my perspective. CODE STATUS: Full code (discussed with ) TIME: 45 minutes of critical care time, independent of procedures, was spent addressing the patient's undifferentiated shock, fever of unknown origin, acute respiratory failure, acute on chronic kidney disease, history of VTE with acute DVT, anemia and thrombocytopenia, review of all data and collaboration with the care team. Subjective Subjective The patient was seen and examined at the bedside this morning. Events from the last 24 hours have been reviewed. The patient currently has a low-grade fever, but his hemodynamic status has improved over the last 24 hours. The patient's vasopressin and Mauro-Synephrine have been weaned off. He is currently requiring Levophed at 10 mcg/min to maintain hemodynamic stability. Unfortunately, overnight, the patient became more agitated with reported shortness of breath. He was initially placed on a Precedex infusion and ABG was obtained, which demonstrated a primary metabolic acidosis with a pH of 7.15, pCO2 of 41 and pO2 of 173. Apparently, conversation was undertaken with the overnight covering ICU physician, who ultimately recommended that the patient be intubated. Postintubation, the patient was started on fentanyl as well as a Versed infusion. The patient was also initiated on a sodium bicarbonate infusion. I personally stopped the patient's Versed drip this morning. Therefore, he remains on Precedex and fentanyl for sedation. The patient's most recent arterial blood gas demonstrated a pH of 7.45 with a pCO2 of 27 and pO2 of 81. White blood cell count has increased to 11,000 with a hemoglobin of 9.3 g/dL and platelet count of 108,000. He has 32% band neutrophils noted on differential. Chemistry profile was notable for a bicarbonate of 20, BUN of 62 and creatinine of 3.9. The patient's antimicrobial regimen include Zosyn and daptomycin. He remains on stress dose steroids. Objective Data Objective Data The patient's most recent lab work, culture data and imaging studies have all been personally reviewed. Surface echocardiogram demonstrated stage II diastolic dysfunction with an ejection fraction of 50%. Pulmonary artery systolic pressure was estimated to be 28 mmHg. Lower extremity Doppler study revealed an acute DVT in the right common femoral vein. Respiratory viral panel was negative. Blood, urine and sputum cultures are pending. Vital Signs: Vital Signs Temp Pulse Resp BP Pulse Ox O2 Del Method O2 Flow Rate 99.4 F H 72 22 H 85/57 L 92 Mechanical Ventilator 4 05/20/24 06:00 05/20/24 06:00 05/20/24 06:00 05/20/24 06:58 05/20/24 06:00 05/20/24 06:00 05/19/24 23:00 FiO2 30 05/20/24 06:00 Oxygen Flow Rate (L/min) 4 Oxygen Delivery Method Mechanical Ventilator Weight: 143 lb 11.862 oz Body Mass Index (BMI) 23.9 Intake & Output: Intake and Output for Last 24 Hours 05/18/24 05/19/24 05/20/24 23:59 23:59 23:59 Intake Total 6234.40 / 6295.94 1461.31 / 1461.31 Output Total 905 / 905 350 / 350 Balance 5329.40 / 5390.94 1111.31 / 1111.31 Lab / Micro Data Attestation: I reviewed the patient's lab results. 05/20/24 05:25 05/20/24 05:25 Labs: Laboratory Results - last 24 hr 05/18/24 22:27: Diff Path Review Reviewed 05/19/24 06:25: Procalcitonin 6.84 H, Cortisol 4.60 05/19/24 08:00: WBC 1.9 L, RBC 2.80 L, Hgb 7.9 L, Hct 25.9 L, MCV 92.5, MCH 28.2, MCHC 30.5 L, RDW Std Deviation 46.0 H, RDW Coeff of Adamaris 13.5, Plt Count 76 L, MPV 10.8, Neut % (Auto) Not Reportable, Absolute Neuts (auto) 1.6 L, Absolute Lymphs (auto) 0.37 L, Total Counted 50, Neutrophils % (Manual) 34 L, Band Neutrophils % 24 H, Lymphocytes % (Manual) 20, Metamyelocytes % 18 H, Myelocytes % 4 H, Diff Path Review February, Platelet Estimate SLT DEC, RBC Morphology NORM C+C, Sodium 135 L, Potassium 4.5, Chloride 105, Carbon Dioxide 26.0, Anion Gap 4 L, BUN 50 H, Creatinine 3.43 H, Estim Creat Clear Calc 20.51, Est GFR (MDRD) Af Amer 24 L, Est GFR (MDRD) Non-Af 20 L, BUN/Creatinine Ratio 14.6, Glucose 70 L, Calcium 8.1 L, Phosphorus 2.6, Magnesium 1.4 L, Total Bilirubin 1.00, AST 14 L, ALT 14 L, Alkaline Phosphatase 59, Troponin I High Sens 256 H*, Total Protein 4.6 L, Albumin 2.7 L, Globulin 1.9 L, Albumin/Globulin Ratio 1.4 05/19/24 09:45: Troponin I High Sens 335 H*, Blood Type O NEGATIVE, Antibody Screen POSITIVE, Antibody Identification ANTI-D 05/19/24 11:00: Tacrolimus Cancelled, Tacrolimus Comment Cancelled 05/20/24 05:25: WBC 11.2 H, RBC 3.23 L, Hgb 9.3 L, Hct 28.5 L, MCV 88.2, MCH 28.8, MCHC 32.6 D, RDW Std Deviation 44.7 H, RDW Coeff of Adamaris 13.7, Plt Count 108 L, MPV 11.6, Neut % (Auto) Not Reportable, Absolute Neuts (auto) 8.2 H, Absolute Lymphs (auto) 1.01, Total Counted 100, Neutrophils % (Manual) 41 L, B and Neutrophils % 32 H, Lymphocytes % (Manual) 9 L, Monocytes % (Manual) 16 H, Metamyelocytes % 1, Myelocytes % 1 H, Differential Comment SCANNED, Diff Path Review May foll, Toxic Vacuolation 1+, Sodium 137, Potassium 4.9, Chloride 106, Carbon Dioxide 20.0 L, Anion Gap 11, BUN 62 H, Creatinine 3.90 H, Estim Creat Clear Calc 18.62, Est GFR (MDRD) Af Amer 21 L, Est GFR (MDRD) Non-Af 17 L, BUN/Creatinine Ratio 15.9, Glucose 137 H, Calcium 7.5 L, Total Bilirubin 0.90, A ST 52 H, ALT 37, Alkaline Phosphatase 29 L, Total Protein 4.6 L, Albumin 2.5 L, Globulin 2.1 L, Albumin/Globulin Ratio 1.2, TSH 0.405 Micro: Microbiology 05/19/24 07:10 Mucosa - Nasopharyngeal Respiratory Panel (PCR) - Final 05/18/24 22:37 Mucosa - Nose SARS-CoV-2, Influenza & RSV (PCR) - Final ABG Data ABG results: ABG 05/19/24 05/20/24 05/20/24 23:11 00:54 05:30 Specimen Type ART ART ART Sample Site Art Line Art Line Art Line pH 7.15 L* 7.51 H 7.45 Bicarbonate Actual 14.4 L 18.9 L 18.8 L Total CO2 16 20 20 Base Excess -15 L -4 L -5 L O2 Saturation 99 100 H 97 O2 % 6.0 100.0 30.0 ABG pCO2 41.1 23.7 L 26.9 L ABG pO2 173 H 446 H* 81 Respiration Rate 28 22 O2 Delivery Device Cannula Adult Vent Adult Vent Vent Mode Not entered AC AC Tidal Volume 450.0 450.0 POC PEEP 5 5 Crit Call To/Read Back Yes Yes Blood Gas Notified Hali Sanders Blood Gas Notified Time 23:13:11 00:55:45 Radiography Diagnostic Testing: Radiology Impression Echocardiogram 05/19/24 06:40 Interpretation Summary The left ventricular ejection fraction is 50 %. Left ventricular systolic function is lower limits of normal. Stage 2 diastolic dysfunction. Mild (1+) aortic valve insufficiency. Ordering Physician: Trey Ro Referring Physician: Atul Saab Performed By: Veronica Levy, [facility] Chest X-Ray 05/19/24 07:30 IMPRESSION: Stable examination. A left-sided internal jugular venous catheter has been placed with the tip at the junction of the superior vena cava and left brachiocephalic vein. The remainder of the examination is unchanged. Electronically Signed: Gabe Nichols MD at 8:20 EDT , Venous Doppler Study 05/19/24 08:06 Interpretation Summary Acute deep vein thrombosis is noted in the right common femoral vein. Acute superficial vein thombosis noted in the right saphenofemoral junction, great saphenous vein. Ordering Physician: Trey Ro Referring Physician: Sharonda Tate Performed By: Ester Bergman Jhon Venous Doppler Study 05/19/24 08:11 Interpretation Summary Acute deep vein thrombosis noted in the right subclavian vein. Chronic deep vein thrombosis noted in the right internal jugular vein. Deep veins of the left upper extremity are patent and compressible segmentally. There is no evidence of deep vein thrombosis. Multiple failed AV fistulas bilateral Ordering Physician: Trey Ro Referring Physician: Sharonda Tate Performed By: Ester Bergman, T ??? Chest X-Ray 05/19/24 23:49 IMPRESSION: Ill-defined airspace opacity in the left lung base suggesting pneumonia. Calcified pleural plaques noted bilaterally. Small right pleural effusion. Electronically Signed: Estephania Luque MD at 2:24 EDT , Chest X-Ray 05/20/24 05:55 IMPRESSION: Ill-defined airspace opacity in the left lung base suggesting pneumonia. Calcified pleural plaques noted bilaterally. Small right pleural effusion. Electronically Signed: Estephania Luque MD at 6:44 EDT , Physical Exam Const Constitutional Narrative: Intubated, sedated and mechanically ventilated. HEENT normocephalic and head/scalp atraumatic Mouth: endotracheal tube in place and OG tube in place Eyes PERRL and conjunctivae normal Neck supple General: trachea midline and CVC in place Resp Effort and Inspection: tachypneic Auscultation: diminished lung sounds Cardio regular rate and regular rhythm GI normal to inspection, nondistended, normoactive bowel sounds Extremity no clubbing, cyanosis or edema Skin no rashes or lesions noted Neuro Sensorium / Orientation: sedated on vent Charges/Coding Procedures Hospitalists Procedures: [id number] Critical Care 1st Hr
[2024-05-20] MEDS: Aspirin 81 MG TAB.CHEW GT (08:24)
[2024-05-20] MEDS: Ferrous Sulfate 300 MG/5 ML UDC GT (08:24)
[2024-05-20] MEDS: Lactobacillis Acidophilus 1 CAP GT ×2 (08:25→22:23)
[2024-05-20] MEDS: Heparin Injection (Vial) 5,000 UNIT/ML VIAL 5000 UNIT SC (08:25)
[2024-05-20] MEDS: HEPARIN/D5w 25,000 UNITS 25,000 UNITS/250 ML IV.SOLN. 10 UNITS CONT INF (09:31)
--- NOTE | 2024-05-20 09:37 | PN.HOSP_ITS ---
Reason for Visit Reason for Visit: Diagnoses Sepsis, unspecified organism (05/19/24) Disorder involving the immune mechanism, unspecified (05/19/24) Acute embolism and thrombosis of unspecified deep veins of unspecified lower extremity (05/19/24) Acute kidney failure, unspecified (05/19/24) Fever, unspecified (05/19/24) Severe sepsis without septic shock (05/19/24) Severe sepsis with septic shock (05/19/24) Kidney transplant status (05/19/24) Subjective Subjective Patient intubated overnight due to increased work of breathing. At present patient resting comfortably with family at bedside Objective Data Objective Data Vital Signs: Vital Signs Temp Pulse Resp BP Pulse Ox O2 Del Method O2 Flow Rate 99.4 F H 66 22 H 95/61 96 Mechanical Ventilator 30 05/20/24 06:00 05/20/24 09:00 05/20/24 09:00 05/20/24 09:00 05/20/24 09:00 05/20/24 09:00 05/20/24 09:00 FiO2 30 05/20/24 06:00 Oxygen Flow Rate (L/min) 30 Oxygen Delivery Method Mechanical Ventilator Weight: 65.2 kg Body Mass Index (BMI) 23.9 Intake & Output: Intake and Output for Last 24 Hours 05/18/24 05/19/24 05/20/24 23:59 23:59 23:59 Intake Total 6234.40 / 6295.94 1537.92 / 1537.92 Output Total 905 / 905 350 / 350 Balance 5329.40 / 5390.94 1187.92 / 1187.92 Lab / Micro Data 05/20/24 05:25 05/20/24 05:25 Labs: Laboratory Results - last 24 hr 05/18/24 22:27: Diff Path Review Reviewed 05/19/24 09:45: Troponin I High Sens 335 H*, Blood Type O NEGATIVE, Antibody Screen POSITIVE, Antibody Identification ANTI-D 05/19/24 11:00: Tacrolimus Cancelled, Tacrolimus Comment Cancelled 05/20/24 05:25: WBC 11.2 H, RBC 3.23 L, Hgb 9.3 L, Hct 28.5 L, MCV 88.2, MCH 28.8, MCHC 32.6 D, RDW Std Deviation 44.7 H, RDW Coeff of Adamaris 13.7, Plt Count 108 L, MPV 11.6, Neut % (Auto) Not Reportable, Absolute Neuts (auto) 8.2 H, Absolute Lymphs (auto) 1.01, Total Counted 100, Neutrophils % (Manual) 41 L, B and Neutrophils % 32 H, Lymphocytes % (Manual) 9 L, Monocytes % (Manual) 16 H, Metamyelocytes % 1, Myelocytes % 1 H, Differential Comment SCANNED, Diff Path Review May foll, Toxic Vacuolation 1+, Sodium 137, Potassium 4.9, Chloride 106, Carbon Dioxide 20.0 L, Anion Gap 11, BUN 62 H, Creatinine 3.90 H, Estim Creat Clear Calc 18.62, Est GFR (MDRD) Af Amer 21 L, Est GFR (MDRD) Non-Af 17 L, BUN/Creatinine Ratio 15.9, Glucose 137 H, Calcium 7.5 L, Total Bilirubin 0.90, A ST 52 H, ALT 37, Alkaline Phosphatase 29 L, Total Protein 4.6 L, Albumin 2.5 L, Globulin 2.1 L, Albumin/Globulin Ratio 1.2, TSH 0.405 Micro: Microbiology 05/19/24 07:10 Mucosa - Nasopharyngeal Respiratory Panel (PCR) - Final 05/18/24 22:37 Mucosa - Nose SARS-CoV-2, Influenza & RSV (PCR) - Final ABG Data ABG results: ABG 05/19/24 05/20/24 05/20/24 23:11 00:54 05:30 Specimen Type ART ART ART Sample Site Art Line Art Line Art Line pH 7.15 L* 7.51 H 7.45 Bicarbonate Actual 14.4 L 18.9 L 18.8 L Total CO2 16 20 20 Base Excess -15 L -4 L -5 L O2 Saturation 99 100 H 97 O2 % 6.0 100.0 30.0 ABG pCO2 41.1 23.7 L 26.9 L ABG pO2 173 H 446 H* 81 Respiration Rate 28 22 O2 Delivery Device Cannula Adult Vent Adult Vent Vent Mode Not entered AC AC Tidal Volume 450.0 450.0 POC PEEP 5 5 Crit Call To/Read Back Yes Yes Blood Gas Notified Whom ArcherMauricionafisa Banks Blood Gas Notified Time 23:13:11 00:55:45 Radiography Diagnostic Testing: Radiology Impression Echocardiogram 05/19/24 06:40 Interpretation Summary The left ventricular ejection fraction is 50 %. Left ventricular systolic function is lower limits of normal. Stage 2 diastolic dysfunction. Mild (1+) aortic valve insufficiency. Ordering Physician: Trey Ro Referring Physician: tAul Saab Performed By: Veronica Levy RDCS Venous Doppler Study 05/19/24 08:06 Interpretation Summary Acute deep vein thrombosis is noted in the right common femoral vein. Acute superficial vein thombosis noted in the right saphenofemoral junction, great saphenous vein. Ordering Physician: Trey Ro Referring Physician: Sharonda Tate Performed By: Ester Bergman RVT Venous Doppler Study 05/19/24 08:11 Interpretation Summary Acute deep vein thrombosis noted in the right subclavian vein. Chronic deep vein thrombosis noted in the right internal jugular vein. Deep veins of the left upper extremity are patent and compressible segmentally. There is no evidence of deep vein thrombosis. Multiple failed AV fistulas bilateral Ordering Physician: Trey Ro Referring Physician: Sharonda Tate Performed By: Ester Bergman Jhon ??? Chest X-Ray 05/19/24 23:49 IMPRESSION: Ill-defined airspace opacity in the left lung base suggesting pneumonia. Calcified pleural plaques noted bilaterally. Small right pleural effusion. Electronically Signed: Estephania Luque MD at 2:24 EDT , Chest X-Ray 05/20/24 05:55 IMPRESSION: Ill-defined airspace opacity in the left lung base suggesting pneumonia. Calcified pleural plaques noted bilaterally. Small right pleural effusion. Electronically Signed: Estephania Luque MD at 6:44 EDT , Physical Exam Narrative General: Intubated and sedated HEENT: Atraumatic, normocephalic Eyes: Eyes closed, no spontaneous opening Neck: Supple Respiratory: Mechanically ventilated Cardiovascular: Regular rate and rhythm GI: Soft Extremities: Trace lower extremity edema Musculoskeletal: Presently sedated and not moving extremities spontaneously Neuro: Unable to participate in neuro exam secondary to intubated and sedated Skin: No rashes appreciated Psych: Unable to cooperate secondary to intubated and sedated Assessment & Plan Assessment/Plan (1) Sepsis: QUALIFIERS: Sepsis type: sepsis due to unspecified organism S epsis acute organ dysfunction status: with acute organ dysfunction Severe sepsis acute organ dysfunction type: acute renal failure Acute renal failure type: unspecified Severe sepsis shock status: without septic shock Qualified Code(s): A41.9 - Sepsis, unspecified organism; R65.20 - Severe sepsis without septic shock; N17.9 - Acute kidney failure, unspecified (2) [place] (acute kidney injury): (3) Fever of unknown origin: PLAN: Plan # Shock, suspect septic shock -Patient presented with [place], fever, leukopenia, thrombocytopenia -Patient started on IV Zosyn and given IV fluids and admitted to ICU -Patient required placement of a central line and levo, vaso, phenylephrine at max doses to maintain blood pressure -ID consulted -Patient COVID and respiratory virus negative -Respiratory culture, urine culture, blood cultures pending, no definitive source yet identified though patient has what appears to be a developing pneumonia in left lung that was not present on previous chest x-ray -CT abdomen and pelvis on admission not revealing of source -Given patient's clinical deterioration yesterday daptomycin was added -This a.m. pressor requirement is improving, remains on Levophed -Patient is chronically immunosuppressed, holding mycophenolate per nephrology recommendations at this time -Patient on stress dose steroids # Respiratory distress status post intubation -Patient with respiratory distress overnight, ABG showed acidosis noted. Be secondary to metabolic acidosis which likely was causing patient to have altered breathing pattern in order to try to correct for his acidosis -He was intubated, remains in ICU on mechanical ventilation -ABG did show improvement of acidosis # Right lower extremity acute DVT/acute right subclavian DVT/chronic right IJ DVT/known factor V Leiden mutation -Patient found to have right lower extremity DVT was also noted to have thrombus in right IJ which was chronic and acute right subclavian DVT -Initially due to patient's low platelets and hemoglobin it was felt IVC filter may be most appropriate but given his significant stability this was unable to be performed yesterday -Today given patient's lab stability will be started on heparin drip so that this can be discontinued if any signs of bleeding #[place] on CKD unclear subtype in setting of renal transplant x 2 -Creatinine appear to be trending up over time on outpatient basis but is acutely worsened -Likely secondary to septic shock and infection -Tacrolimus level still pending -Mycophenolate on hold due to infection -Treat underlying illness -Nephrology following # History of CAD status post CABG x 4 -Patient on aspirin, statin held temporarily given potential interaction with daptomycin # Elevated troponin -Suspect secondary to hypotension and critical illness -Patient had echocardiogram which did not show any wall motion abnormalities # History of chronic heart failure with preserved ejection fraction -Monitor volume status, does not appear overloaded at present -Echocardiogram this admission showed EF of 50% and stage II diastolic dysfunction, no wall motion abnormalities noted # History of neurogenic bladder -Patient status post Machado placement # Lung nodule -CT of abdomen pelvis showed an ill-defined nodule in superior segment of right lower lobe that measured 7 mm -Follow-up in 6 months recommended # Pancytopenia -Unclear etiology, likely multifactorial -White blood cell count has recovered but patient remains anemic and thrombocytopenic -May need to follow with hematology on discharge if counts do not recover #DVT ppx: To be started on heparin drip Lian Soler MD Time spent in the patient's overall evaluation,decision-making process, review of diagnostic data, adjustment of management, discussion with other providers, nursing nursing and ancillary staff involved in patient's care documentation, 55 minutes Charges/Coding Visit Charges Inpatient E&M: 90584 Subs Hosp L3
[2024-05-20] MEDS: Magnesium Sulfate 4gm/100mL 4 GM/100 ML IV.SOLN. IV (09:48)
[2024-05-20] MEDS: Pantoprazole Sodium 40 MG in 0.9% Normal Saline (100mL MB+) 100 ML 330 MG IV ×2 (09:48→22:07)
--- NOTE | 2024-05-20 11:13 | CASEMGMT ---
RN CM Assessment Pt is currently on the ventilator and is unable to answer this RN CM questions for assessment. This RN CM talked to the pt and pt sister who are agreeable to answering this RN DARRIAN questions. Care providers, pharmacy, and demographics verified. Admitting dx: Fever, Sepsis LACE Strata: 3 PCP: Atul Tate Specialists: Brigette Sellers (Nephro - [facility]), SULMA Preferred [facility]acy: [facility] Insurance: [employer] Prescription Benefit: Yes LNOK: Stephany Zee (W), Jenny Jackson (Sister) Living Arrangements: Pt lives with his in a single story home with a basement and two steps to enter ADLs/IADLs: Ind at BL Transportation: Self normally, DME: [employer] HHC/SNF: denies Hx Pt?s goal: Return to PLOF Plan: TBD. Pt is currently on the mechanical ventilator. CM and SW to follow pt progression in the hospital to decipher what the pt best qualifies for moving forward. Servando Sultana RN, CM
[2024-05-20] MEDS: Vital AF 1.2 Cal Liquid 1,000 ML 20 ML GT (11:21)
--- NOTE | 2024-05-20 11:51 | PCM.PN.REN ---
Subjective Subjective Following for [place]O superimposed on CKD Overnight patient intubated. Awake. Spoke with family. Objective Data Objective Data Vital Signs: Vital Signs Temp Pulse Resp BP Pulse Ox O2 Del Method O2 Flow Rate 99.0 F 62 18 93/60 100 Mechanical Ventilator 30 05/20/24 10:00 05/20/24 11:00 05/20/24 11:00 05/20/24 11:00 05/20/24 11:00 05/20/24 11:00 05/20/24 11:00 FiO2 30 05/20/24 09:10 Oxygen Flow Rate (L/min) 30 Oxygen Delivery Method Mechanical Ventilator Weight: 65.2 kg Body Mass Index (BMI) 23.9 Intake & Output: Intake and Output for Last 24 Hours 05/18/24 05/19/24 05/20/24 23:59 23:59 23:59 Intake Total 6234.40 / 6295.94 2526.72 / 2526.72 Output Total 905 / 905 350 / 350 Balance 5329.40 / 5390.94 2176.72 / 2176.72 Lab / Micro Data 05/20/24 05:25 05/20/24 05:25 Labs: Laboratory Results - last 24 hr 05/18/24 22:27: Diff Path Review Reviewed 05/19/24 09:45: Blood Type O NEGATIVE, Antibody Screen POSITIVE, Antibody Identification ANTI-D 05/19/24 11:00: Tacrolimus Cancelled, Tacrolimus Comment Cancelled 05/20/24 05:25: WBC 11.2 H, RBC 3.23 L, Hgb 9.3 L, Hct 28.5 L, MCV 88.2, MCH 28.8, MCHC 32.6 D, RDW Std Deviation 44.7 H, RDW Coeff of Adamaris 13.7, Plt Count 108 L, MPV 11.6, Neut % (Auto) Not Reportable, Absolute Neuts (auto) 8.2 H, Absolute Lymphs (auto) 1.01, Total Counted 100, Neutrophils % (Manual) 41 L, Band Neutrophils % 32 H, Lymphocytes % (Manual) 9 L, Monocytes % (Manual) 16 H, Metamyelocytes % 1, Myelocytes % 1 H, Differential Comment SCANNED, Diff Path Review May foll, Toxic Vacuolation 1+, Sodium 137, Potassium 4.9, Chloride 106, Carbon Dioxide 20.0 L, Anion Gap 11, BUN 62 H, Creatinine 3.90 H, Estim Creat Clear Calc 18.62, Est GFR (MDRD) Af Amer 21 L, Est GFR (MDRD) Non-Af 17 L, BUN/Creatinine Ratio 15.9, Glucose 137 H, Calcium 7.5 L, Total Bilirubin 0.90, AST 52 H, ALT 37, Alkaline Phosphatase 29 L, Total Protein 4.6 L, Albumin 2.5 L, Globulin 2.1 L, Albumin/Globulin Ratio 1.2, TSH 0.405 Micro: Microbiology 05/18/24 23:55 Urine, Clean Catch Urine Culture - Preliminary GPC Poss Enterococcus sp 05/20/24 00:23 Sputum, Induced/Lukens Gram Stain - Final 05/19/24 07:10 Mucosa - Nasopharyngeal Respiratory Panel (PCR) - Final 05/18/24 22:37 Mucosa - Nose SARS-CoV-2, Influenza & RSV (PCR) - Final ABG Data ABG results: ABG 05/19/24 05/20/24 05/20/24 23:11 00:54 05:30 Specimen Type ART ART ART Sample Site Art Line Art Line Art Line pH 7.15 L* 7.51 H 7.45 Bicarbonate Actual 14.4 L 18.9 L 18.8 L Total CO2 16 20 20 Base Excess -15 L -4 L -5 L O2 Saturation 99 100 H 97 O2 % 6.0 100.0 30.0 ABG pCO2 41.1 23.7 L 26.9 L ABG pO2 173 H 446 H* 81 Respiration Rate 28 22 O2 Delivery Device Cannula Adult Vent Adult Vent Vent Mode Not entered [facility] Tidal Volume 450.0 450.0 POC PEEP 5 5 Crit Call To/Read Back Yes Yes Blood Gas Notified Whom ArcherMauricioeva Zhaoqi Blood Gas Notified Time 23:13:11 00:55:45 Radiography Diagnostic Testing: Radiology Impression Chest X-Ray 05/19/24 23:49 IMPRESSION: Ill-defined airspace opacity in the left lung base suggesting pneumonia. Calcified pleural plaques noted bilaterally. Small right pleural effusion. Electronically Signed: Estephania Luque MD at 2:24 EDT , Chest X-Ray 05/20/24 05:55 IMPRESSION: Ill-defined airspace opacity in the left lung base suggesting pneumonia. Calcified pleural plaques noted bilaterally. Small right pleural effusion. Electronically Signed: Estephania Luque MD at 6:44 EDT Reading Location ID and State: [facility] / [place] Tel , Service support , Physical Exam Narrative Intubated, no apparent distress S1, S2, RRR Lung sounds diminished posteriorly. No wheezes, rhonchi or rales noted Abdomen soft, positive bowel sounds No pitting edema bilateral lower legs Indwelling Machado clear yellow urine in bag Assessment & Plan Assessment/Plan (1) History of renal transplant: PLAN: This is 54 year old male who is chronically immunosuppressed status post renal transplant more than 10 years ago and has underlying CKD 3 who presented to the emergency department with complaints of generalized malaise, fever and chills. COVID, RSV negative. Patient was hypotensive in the emergency room, patient was ultimately admitted to ICU and started on vasopressor support. - Acute kidney injury superimposed on CKD stage III; [place] secondary to renal ischemia in the setting of septic shock. At the moment he is not acidotic, hyperkalemic, nor fluid overloaded and does not need dialysis. Serum creatinine 3.0 on admission and today his serum creatinine is up to 3.90 mg/dL. Continue holding CellCept due to active infection. Tacrolimus level pending (drawn 05/19). Continue stress dose steroids. Discussed nephrology plan with family at bedside. If renal function were to worsen and patient would require SAPPHIRE STYLUS GRINDER, family states that they would likely move forward with pursuing hemodialysis should patient need it however no urgent need for SAPPHIRE STYLUS GRINDER/or CRRT at this time. We will continue to follow him closely. Labs ordered for am. - CKD stage III; baseline creatinine ranging around 1.5 to 1.9 mg/dL. Patient has had multiple [place] episodes where creatinine will level off to near baseline. Lasix on hold. He has not required SAPPHIRE STYLUS GRINDER since transplant -Right lower extremity DVT/acute right subclavian DVT/chronic right IJ DVT; started on heparin drip -Respiratory distress s/p intubation 05/20; decrease IV fluid rate. May be able to stop fluids altogether tomorrow -Sepsis; no definitive source but possibly developing pneumonia in left lung. Blood cultures pending. On IV antibiotics Zosyn and daptomycin. Blood pressures remain low but have improved, pressor requirement improving and is on Levophed at 10 mcg/min (2) [place] (acute kidney injury):
--- NOTE | 2024-05-20 13:17 | PCM.PN.ID ---
Physical Exam Narrative On vent, family at bedside, no fever overnight Const no apparent distress Resp clear to auscultation bilaterally Effort and Inspection: mechanically ventilated Cardio regular rate and regular rhythm GI soft to palpation, non-tender and non-distended Skin no rashes or lesions noted ID ID: Route of nutrition/ use of supplements: [] Nutritional Intake: [] IV Site: [] Machado Catheter: [] Assessment & Plan Assessment/Plan (1) [place] (acute kidney injury): (2) History of renal transplant: (3) Septic shock: PLAN: H/o renal transplant x2, most recent 2011 at . New [place], leukopenia, and worsening of his chronic thrombocytopenia. Wbc is better today. Full resp pcr panel neg. Neph consult. BP improved. Ucx with enterococcus. Pending cmv and ebv serologies and quant pcrs, parvo pcr, and tacro level. Cont empiric zosyn, added dapto 05/19. Will follow, d/w Dr. Ro
[2024-05-20 15:08] LABS: CRP, High Sensitivity 41.44 mg/L (0.00-3.00)
[2024-05-20] MEDS: Sodium Bicarbonate 150 MEQ in Dextrose 5%-Water (1000mL Bag) 1,000 ML 100 MEQ IV (15:38)
--- NOTE | 2024-05-20 17:11 | PN.SURG_ITS ---
Subjective Subjective He was intubated overnight due to increased work of breathing. Hemodynamically, he is improved and only requiring levophed now. His platelet count and hemoglobin also improved so weight-based heparin was also initiated, to this point no signs or symptoms of bleeding. His sister was at bedside, patient appeared to be resting comfortably. Objective Data Objective Data Vital Signs: Vital Signs Temp Pulse Resp BP Pulse Ox O2 Del Method O2 Flow Rate 98.4 F 70 18 97/59 L 100 Mechanical Ventilator 30 05/20/24 12:00 05/20/24 16:11 05/20/24 16:11 05/20/24 16:11 05/20/24 16:11 05/20/24 16:11 05/20/24 11:00 FiO2 30 05/20/24 16:11 Oxygen Flow Rate (L/min) 30 Oxygen Delivery Method Mechanical Ventilator Weight: 143 lb 11.862 oz Body Mass Index (BMI) 23.9 Intake & Output: Intake and Output for Last 24 Hours 05/18/24 05/19/24 05/20/24 23:59 23:59 23:59 Intake Total 6234.40 / 6295.94 3247.94 / 3247.94 Output Total 905 / 905 1100 / 1100 Balance 5329.40 / 5390.94 2147.94 / 2147.94 Lab / Micro Data 05/20/24 05:25 05/20/24 05:25 Labs: Laboratory Results - last 24 hr 05/19/24 06:25: C-React Prot High Sens 41.44 H 05/20/24 05:25: WBC 11.2 H, RBC 3.23 L, Hgb 9.3 L, Hct 28.5 L, MCV 88.2, MCH 28.8, MCHC 32.6 D, RDW Std Deviation 44.7 H, RDW Coeff of Adamaris 13.7, Plt Count 108 L, MPV 11.6, Neut % (Auto) Not Reportable, Absolute Neuts (auto) 8.2 H, Absolute Lymphs (auto) 1.01, Total Counted 100, Neutrophils % (Manual) 41 L, B and Neutrophils % 32 H, Lymphocytes % (Manual) 9 L, Monocytes % (Manual) 16 H, Metamyelocytes % 1, Myelocytes % 1 H, Differential Comment SCANNED, Diff Path Review May foll, Toxic Vacuolation 1+, Sodium 137, Potassium 4.9, Chloride 106, Carbon Dioxide 20.0 L, Anion Gap 11, BUN 62 H, Creatinine 3.90 H, Estim Creat Clear Calc 18.62, Est GFR (MDRD) Af Amer 21 L, Est GFR (MDRD) Non-Af 17 L, BUN/Creatinine Ratio 15.9, Glucose 137 H, Calcium 7.5 L, Total Bilirubin 0.90, A ST 52 H, ALT 37, Alkaline Phosphatase 29 L, Total Protein 4.6 L, Albumin 2.5 L, Globulin 2.1 L, Albumin/Globulin Ratio 1.2, TSH 0.405 Micro: Microbiology 05/18/24 23:55 Urine, Clean Catch Urine Culture - Preliminary GPC Poss Enterococcus sp 05/20/24 00:23 Sputum, Induced/Lukens Gram Stain - Final 05/19/24 07:10 Mucosa - Nasopharyngeal Respiratory Panel (PCR) - Final 05/18/24 22:37 Mucosa - Nose SARS-CoV-2, Influenza & RSV (PCR) - Final ABG Data ABG results: ABG 05/19/24 05/20/24 05/20/24 23:11 00:54 05:30 Specimen Type ART ART ART Sample Site Art Line Art Line Art Line pH 7.15 L* 7.51 H 7.45 Bicarbonate Actual 14.4 L 18.9 L 18.8 L Total CO2 16 20 20 Base Excess -15 L -4 L -5 L O2 Saturation 99 100 H 97 O2 % 6.0 100.0 30.0 ABG pCO2 41.1 23.7 L 26.9 L ABG pO2 173 H 446 H* 81 Respiration Rate 28 22 O2 Delivery Device Cannula Adult Vent Adult Vent Vent Mode Not entered AC AC Tidal Volume 450.0 450.0 POC PEEP 5 5 Crit Call To/Read Back Yes Yes Blood Gas Notified Whom rola Mauricio Zhaoqi Blood Gas Notified Time 23:13:11 00:55:45 Radiography Diagnostic Testing: Radiology Impression Chest X-Ray 05/19/24 23:49 IMPRESSION: Ill-defined airspace opacity in the left lung base suggesting pneumonia. Calcified pleural plaques noted bilaterally. Small right pleural effusion. Electronically Signed: Estephania Luque MD at 2:24 EDT , Chest X-Ray 05/20/24 05:55 IMPRESSION: Ill-defined airspace opacity in the left lung base suggesting pneumonia. Calcified pleural plaques noted bilaterally. Small right pleural effusion. Electronically Signed: Estephania Luque MD at 6:44 EDT , Physical Exam Const Constitutional Narrative: Intubated, sedated HEENT normocephalic and head/scalp atraumatic Eyes General Eye: normal appearance of both eyes Neck General: normal visual inspection Resp normal respiratory effort Cardio Rate: regular rate Rhythm: regular rhythm Extremity normal to inspection Assessment & Plan Assessment/Plan (1) DVT (deep venous thrombosis): PLAN: His platelet count improved to 108,000 and Hgb improved to 9.2 so patient was initiated on weight-based heparin drip today and so far appears to be tolerating without adverse bleeding. Discussed with family at bedside that as long as he is able to tolerate anticoagulation this is the best option as it is both treats his current clot burden and is preventive of further clot development. If bleeding occurs, then would reconsider IVC filter insertion. Will continue to follow. Charges/Coding Visit Charges Inpatient E&M: 89699 Subs Hosp L2
[2024-05-20] MEDS: TITRATION PARAMETER CHANGE 1 EACH IV (17:14)
[2024-05-20] MEDS: fentaNYL drip 100 ML 2.5 MCG CONT INF (18:45)
[2024-05-20 19:44] LABS: Prothrombin Time (Protime)PT. 22.5 SECONDS (11.7-14.9)
[2024-05-20 20:47] LABS: Partial Thromboplast Time 242.2 Seconds (24.1-36.2)
[2024-05-21] VITALS (48 sets, daily range): BP systolic 80–136; BP diastolic 47–78; PULSE 63–86; RESP 10–24; TEMP 36.4–36.8; O2SAT 65–100; BMI 24.3
[2024-05-21] MEDS: Hydrocortisone Sod Succinate 100 MG/2 ML Vial 50 MG IV ×4 (00:52→17:22)
[2024-05-21] MEDS: dexMEDEtomidine 400 MCG in 0.9% Normal Saline (100mL Bag) 96 ML 7.5 MCG CONT INF (01:39)
[2024-05-21] MEDS: Sodium Bicarbonate 150 MEQ in Dextrose 5%-Water (1000mL Bag) 1,000 ML 100 MEQ IV (01:39)
[2024-05-21 05:00] LABS: Absolute Neutrophil Count 7.8 X10^3/uL (2.0-7.7); Basophil# 0.01 X10^3/uL; Basophil% 0.1 % (0-1); Hematocrit 24.7 % (40-54); Lymphocyte % 5.6 % (19-41); Mean Corp Hgb Conc 32.4 g/dL (32-36); Mean Corpuscular Hgb 28.7 pg (27.0-32.0); Mean Corpuscular Volume 88.5 fL (80-94); Mean Platelet Vol. 11.6 fl (6.2-12.0); Monocyte# 0.57 X10^3/uL; Monocyte% 6.3 % (0-10); NRBC Flagged by Analyzer 0 % (0-5); Neutrophil # 7.84 X10^3/uL (2.7-7.7); Neutrophil % 87.2 % (47-70); POSITIVE COUNT YES; POSITIVE DIFFERENTIAL YES; POSITIVE MORPHOLOGY YES; Platelet Count 72 K/mm3 (150-450); RBC Distribution Width CV 13.8 % (11.6-14.6); Red Blood Count 2.79 M/mm3 (4.6-6.2)
[2024-05-21 05:12] LABS: Differential Indicated SCAN CRITERIA MET
[2024-05-21 05:16] LABS: ALB/GLOB Ratio 0.9 RATIO (0.9-2.4); AST(SGOT) 99 U/L (15-37); Alanine Aminotransfer ALT/SGPT 43 U/L (16-61); Albumin, Serum 2.1 g/dL (3.2-5.0); Alkaline Phosphatase 38 U/L (45-117); Anion Gap 12 (5-15); BUN 66 mg/dL (7-18); BUN/Creat Ratio 16.3 RATIO (10-20); Calcium,Total 7.4 mg/dL (8.5-10.1); Chloride 99 mmol/L (98-107); Creatinine, Serum 4.04 mg/dL (0.70-1.30); EST Glomerular Filtration Rate 16 mL/min (>60); Est Glom Filt Rate - Afr Amer 20 mL/min (>60); Estimated Creatinine Clearance 17.97 ml/min; Globulin 2.3 g/dL (2.2-4.2); Glucose 186 mg/dL (74-106); Magnesium 2.4 mg/dL (1.6-2.6); Phosphorus 3.8 mg/dL (2.5-4.9); Potassium 3.2 mmol/L (3.5-5.1); Protein, Total 4.4 g/dL (6.4-8.2); Sodium Level 139 mmol/L (136-145)
[2024-05-21] MEDS: Piperacil/Tazobactam 3.375 GM in 0.9% Normal Saline (50mL MB+) 50 ML IV ×2 (05:17→17:26)
[2024-05-21] MEDS: CHLORHEXIDINE GLUC 2% CLOTH 1 EACH TOWELETTE TOPICAL ×2 (05:22→07:59)
--- NOTE | 2024-05-21 06:20 | PN.CC_ITS ---
Assessment & Plan Assessment/Plan (1) Sepsis: QUALIFIERS: Acute renal failure type: unspecified Sepsis acute organ dysfunction status: with acute organ dysfunction Sepsis type: sepsis due to unspecified organism Severe sepsis acute organ dysfunction type: acute renal failure Severe sepsis shock status: without septic shock Qualified Code(s): A 41.9 - Sepsis, unspecified organism; R65.20 - Severe sepsis without septic shock; N17.9 - Acute kidney failure, unspecified (2) [place] (acute kidney injury): (3) Fever of unknown origin: PLAN: Plan RECOMMENDATIONS: 1. Continue assist-control mode of mechanical ventilation. Wean FiO2 and PEEP for saturations greater than 90%. 2. Continue antimicrobials per ID recommendations. 3. Wean Levophed to maintain a mean arterial pressure at or above 65 mmHg. 4. Continue Precedex and fentanyl for sedation. 5. Stop sodium bicarbonate infusion. 6. Continue stress dose steroids. 7. Continue to monitor blood counts and transfuse if hemoglobin drops below 7 g/dL. Continue PPI therapy as ordered. 8. Continue weight-based heparin infusion. If the patient were to bleed or develop worsening anemia, IVC filter can be placed. 9. Obtain follow-up ABG this morning. IMPRESSIONS: 1. Septic shock secondary to Enterococcus UTI The patient presented to the hospital with generalized malaise, fevers and chills. The patient is chronically immunosuppressed due to a history of renal transplantation. Preliminary urine culture is demonstrating growth of possible Enterococcus. No other source of infection has been identified. Accordingly, we will plan to continue antimicrobials under the discretion of infectious diseases. The patient's baseline immunosuppressive therapy is on hold. The patient will be continued on vasopressor support to maintain a mean arterial pressure at or above 65 mmHg, along with stress dose steroids. 2. Acute hypoxemic respiratory failure The patient was ultimately intubated on May 20 due to increased work of breathing in the setting of worsening metabolic acidosis. His acid-base status has improved with invasive mechanical ventilatory support. Continue assist- control mode mechanical ventilation. Wean FiO2 and PEEP to maintain saturations at or above 90%. 3. Acute on chronic kidney disease Clinical concern for prerenal etiology in the setting of #1. The patient is immunosuppressed at baseline without any missed doses, according to . Nephrology is following to assist with medical management. Plan to discontinue sodium bicarbonate infusion today. 4. 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 Repeat lower extremity Doppler study did reveal an acute DVT in the right common femoral vein. I do suspect that the patient is at high risk for PE as well. However, given his underlying renal insufficiency, CTA chest is not able to be completed. In light of the aforementioned, the patient was placed on a weight-based heparin infusion, despite his baseline anemia and thrombocytopenia. If the patient bleeds or develops worsening anemia, will discontinue heparin and proceed with IVC filter placement. 5. Chronic anemia and thrombocytopenia Continue to monitor blood counts and transfuse if hemoglobin drops below 7 g/dL. Continue PPI therapy as ordered. 6. History of coronary artery disease status post CABG/peripheral vascular disease/hypertension/hyperlipidemia/history of tobacco dependency Complicates care, management, recovery and prognosis. Continue to hold home antihypertensives. Plan to continue tube feeding as tolerated. CODE STATUS: Full code TIME: 39 minutes of critical care time, independent of procedures, was spent addressing the patient's septic shock, acute respiratory failure, acute on chronic kidney disease, history of VTE with acute DVT, anemia and thrombocytopenia, review of all data and collaboration with the care team. Subjective Subjective The patient was seen and examined at the bedside this morning. Events from the last 24 hours have been reviewed. The patient is currently afebrile, but remains on Levophed at 6 mcg/min to maintain hemodynamic stability. Hemoglobin is dropped to 8.0 g/dL with a platelet count of 72,000. Potassium is low at 3.2 with a BUN of 66 and creatinine of 4.04. Serum carbonate was noted to be 28. The patient is alert and interactive. His urine output is improving. He remains on a weight-based heparin infusion, along with antimicrobials and stress dose steroids. He has been tolerant of tube feeding. Objective Data Objective Data The patient's most recent lab work, culture data and imaging studies have all been personally reviewed. Surface echocardiogram demonstrated stage II diastolic dysfunction with an ejection fraction of 50%. Pulmonary artery systolic pressure was estimated to be 28 mmHg. Lower extremity Doppler study revealed an acute DVT in the right common femoral vein. Respiratory viral panel was negative. Blood and sputum culture are pending. Preliminary urine culture is demonstrating growth of possible Enterococcus. Vital Signs: Vital Signs Temp Pulse Resp BP Pulse Ox O2 Del Method O2 Flow Rate 98.2 F 71 10 L 86/48 L 99 Mechanical Ventilator 30 05/21/24 05:00 05/21/24 06:00 05/21/24 06:00 05/21/24 06:00 05/21/24 06:00 05/21/24 06:00 05/20/24 11:00 FiO2 30 05/21/24 06:00 Oxygen Flow Rate (L/min) 30 Oxygen Delivery Method Mechanical Ventilator Weight: 146 lb 9.718 oz Body Mass Index (BMI) 24.3 Intake & Output: Intake and Output for Last 24 Hours 05/19/24 05/20/24 05/21/24 23:59 23:59 23:59 Intake Total 6234.40 / 6295.94 3826.21 / 3836.69 1410.84 / 1410.84 Output Total 905 / 905 1250 / 1250 400 / 400 Balance 5329.40 / 5390.94 2576.21 / 2586.69 1010.84 / 1010.84 Lab / Micro Data Attestation: I reviewed the patient's lab results. 05/21/24 04:40 05/21/24 04:40 Labs: Laboratory Results - last 24 hr 05/19/24 06:25: C-React Prot High Sens 41.44 H 05/20/24 05:25: Absolute Neuts (auto) 8.2 H, Absolute Lymphs (auto) 1.01, Total Counted 100, Neutrophils % (Manual) 41 L, Band Neutrophils % 32 H, Lymphocytes % (Manual) 9 L, Monocytes % (Manual) 16 H, Metamyelocytes % 1, Myelocytes % 1 H, Differential Comment SCANNED, Diff Path Review Smiley pena, Toxic Vacuolation 1+ 05/20/24 19:20: PT 22.5 H, INR 2.0, APTT 242.2 H* 05/21/24 04:40: WBC 9.0, RBC 2.79 L, Hgb 8.0 L, Hct 24.7 L, MCV 88.5, MCH 28.7, MCHC 32.4, RDW Std Deviation 45.0 H, RDW Coeff of Adamaris 13.8, Plt Count 72 L, MPV 11.6, Immature Gran % (Auto) 0.800, Neut % (Auto) 87.2 H, Lymph % (Auto) 5.6 L, [place] % (Auto) 6.3, Eos % (Auto) 0.0, Baso % (Auto) 0.1, Absolute Neuts (auto) 7.8 H, Absolute Lymphs (auto) 0.50 L, Nucleated RBC % 0, APTT 83.0 H, Sodium 139, Potassium 3.2 L, Chloride 99, Carbon Dioxide 28.0, Anion Gap 12, BUN 66 H, Creatinine 4.04 H, Estim Creat Clear Calc 17.97, Est GFR (MDRD) Af Amer 20 L, E st GFR (MDRD) Non-Af 16 L, BUN/Creatinine Ratio 16.3, Glucose 186 H, Calcium 7.4 L, Phosphorus 3.8, Magnesium 2.4, Total Bilirubin 0.90, AST 99 H, ALT 43, A lkaline Phosphatase 38 L, Total Protein 4.4 L, Albumin 2.1 L, Globulin 2.3, Albumin/Globulin Ratio 0.9 Micro: Microbiology 05/18/24 23:55 Urine, Clean Catch Urine Culture - Preliminary GPC Poss Enterococcus sp 05/20/24 00:23 Sputum, Induced/Lukens Gram Stain - Final 05/19/24 07:10 Mucosa - Nasopharyngeal Respiratory Panel (PCR) - Final 05/18/24 22:37 Mucosa - Nose SARS-CoV-2, Influenza & RSV (PCR) - Final ABG Data ABG results: ABG 05/19/24 05/20/24 05/20/24 23:11 00:54 05:30 Specimen Type ART ART ART Sample Site Art Line Art Line Art Line pH 7.15 L* 7.51 H 7.45 Bicarbonate Actual 14.4 L 18.9 L 18.8 L Total CO2 16 20 20 Base Excess -15 L -4 L -5 L O2 Saturation 99 100 H 97 O2 % 6.0 100.0 30.0 ABG pCO2 41.1 23.7 L 26.9 L ABG pO2 173 H 446 H* 81 Respiration Rate 28 22 O2 Delivery Device Cannula Adult Vent Adult Vent Vent Mode Not entered AC AC Tidal Volume 450.0 450.0 POC PEEP 5 5 Crit Call To/Read Back Yes Yes Blood Gas Notified Hali Sanders Blood Gas Notified Time 23:13:11 00:55:45 Radiography Diagnostic Testing: Radiology Impression Chest X-Ray 05/20/24 05:55 IMPRESSION: Ill-defined airspace opacity in the left lung base suggesting pneumonia. Calcified pleural plaques noted bilaterally. Small right pleural effusion. Electronically Signed: Estephania Luque MD at 6:44 EDT , Physical Exam Const alert Constitutional Narrative: Intubated, sedated and mechanically ventilated. General Appearance: cooperative HEENT normocephalic and head/scalp atraumatic Mouth: endotracheal tube in place and OG tube in place Eyes PERRL and conjunctivae normal Neck supple General: trachea midline and CVC in place Resp Auscultation: diminished lung sounds Cardio regular rate and regular rhythm GI normal to inspection, nondistended, normoactive bowel sounds Extremity no clubbing, cyanosis or edema Skin no rashes or lesions noted Neuro Sensorium / Orientation: sedated on vent Charges/Coding Procedures Hospitalists Procedures: [id number] Critical Care 1st Hr
[2024-05-21 07:03] LABS: Base Excess 4 mmol/L (-2 to +2); Bicarbonate 27.8 mmol/L (22-26); Blood Gas Specimen Type ART; Mode AC; O2 Delivery Device Adult Vent; PEEP 5; PO2 80 mmHG (75-100); RR 18; SITE Art Line; SO2 97 % (95-99); Total Carbon Dioxide 29 mmol/L; pCO2 36.9 mmHg (35-45); pH 7.49 (7.35-7.45)
[2024-05-21 07:06] LABS: Differential Comment SCANNED
[2024-05-21] MEDS: Pantoprazole Sodium 40 MG in 0.9% Normal Saline (100mL MB+) 100 ML 330 MG IV ×2 (07:59→20:48)
[2024-05-21] MEDS: Aspirin 81 MG TAB.CHEW GT (08:00)
[2024-05-21] MEDS: Lactobacillis Acidophilus 1 CAP GT ×2 (08:00→21:47)
[2024-05-21] MEDS: Ferrous Sulfate 300 MG/5 ML UDC GT (08:00)
[2024-05-21 08:48] LABS: Pathologist Review Reviewed
[2024-05-21 08:49] LABS: Pathologist Review Reviewed
[2024-05-21] MEDS: Potassium Chloride IVPB 40 MEQ 100 MEQ IV BOLUS ×4 (10:00→12:05)
--- NOTE | 2024-05-21 10:12 | PCM.PN.ID ---
Physical Exam Narrative Opens eyes on vent, denies abd pain, no fever Const no apparent distress Constitutional Narrative: able to nod yes/no to questions Resp normal air movement and clear to auscultation bilaterally Cardio regular rate and regular rhythm GI soft to palpation, non-tender and non-distended Skin no rashes or lesions noted ID ID: Route of nutrition/ use of supplements: [] Nutritional Intake: [] IV Site: [] Machado Catheter: [] Assessment & Plan Assessment/Plan (1) [place] (acute kidney injury): (2) History of renal transplant: (3) Septic shock: PLAN: H/o renal transplant x2, most recent 2011 at . New [place], leukopenia, and worsening of his chronic thrombocytopenia. Wbc is normal today. Full resp pcr panel neg. Neph following. BP improved. Ucx with enterococcus. Pending cmv and ebv serologies and quant pcrs, parvo pcr, and tacro level. Cont empiric zosyn, will stop zosyn Will follow
--- NOTE | 2024-05-21 11:16 | PN.RENAL_ITS ---
Subjective Subjective Following for [place] superimposed on CKD No overnight events. Remains on ventilator support. BPs improved requiring less pressor support. Sister at bedside Objective Data Objective Data Vital Signs: Vital Signs Temp Pulse Resp BP Pulse Ox O2 Del Method O2 Flow Rate 97.7 F L 72 16 111/62 99 Mechanical Ventilator 30 05/21/24 08:00 05/21/24 11:00 05/21/24 11:00 05/21/24 11:00 05/21/24 11:00 05/21/24 11:00 05/21/24 10:00 FiO2 30 05/21/24 11:00 Oxygen Flow Rate (L/min) 30 Oxygen Delivery Method Mechanical Ventilator Weight: 66.5 kg Body Mass Index (BMI) 24.3 Intake & Output: Intake and Output for Last 24 Hours 05/19/24 05/20/24 05/21/24 23:59 23:59 23:59 Intake Total 6234.40 / 6295.94 3826.21 / 3836.69 2386.83 / 2386.83 Output Total 905 / 905 1250 / 1250 1325 / 1325 Balance 5329.40 / 5390.94 2576.21 / 2586.69 1061.83 / 1061.83 Lab / Micro Data 05/21/24 04:40 05/21/24 04:40 Labs: Laboratory Results - last 24 hr 05/19/24 06:25: C-React Prot High Sens 41.44 H 05/19/24 08:00: Diff Path Review Reviewed 05/20/24 05:25: Diff Path Review Reviewed 05/20/24 19:20: PT 22.5 H, INR 2.0, APTT 242.2 H* 05/21/24 04:40: WBC 9.0, RBC 2.79 L, Hgb 8.0 L, Hct 24.7 L, MCV 88.5, MCH 28.7, MCHC 32.4, RDW Std Deviation 45.0 H, RDW Coeff of Adamaris 13.8, Plt Count 72 L, MPV 11.6, Immature Gran % (Auto) 0.800, Neut % (Auto) 87.2 H, Lymph % (Auto) 5.6 L, [place] % (Auto) 6.3, Eos % (Auto) 0.0, Baso % (Auto) 0.1, Absolute Neuts (auto) 7.8 H, Absolute Lymphs (auto) 0.50 L, Nucleated RBC % 0, Differential Comment SCANNED, APTT 83.0 H, Sodium 139, Potassium 3.2 L, Chloride 99, Carbon Dioxide 28.0, Anion Gap 12, BUN 66 H, Creatinine 4.04 H, Estim Creat Clear Calc 17.97, E st GFR (MDRD) Af Amer 20 L, Est GFR (MDRD) Non-Af 16 L, BUN/Creatinine Ratio 16.3, Glucose 186 H, Calcium 7.4 L, Phosphorus 3.8, Magnesium 2.4, Total Bilirubin 0.90, AST 99 H, ALT 43, Alkaline Phosphatase 38 L, Total Protein 4.4 L , Albumin 2.1 L, Globulin 2.3, Albumin/Globulin Ratio 0.9 Micro: Microbiology 05/20/24 00:23 Sputum, Induced/Lukens Gram Stain - Final 05/20/24 00:23 Sputum, Induced/Lukens Respiratory Culture - Preliminary Appears to be normal respiratory vera. Further studies to follow. 05/18/24 23:55 Urine, Clean Catch Urine Culture - Final Enterococcus faecalis 05/18/24 22:27 Blood Culture (Wb) - Anticubital Right Blood Culture - Preliminary No growth in 48 hours. 05/19/24 07:10 Mucosa - Nasopharyngeal Respiratory Panel (PCR) - Final 05/18/24 22:37 Mucosa - Nose SARS-CoV-2, Influenza & RSV (PCR) - Final ABG Data ABG results: ABG 05/21/24 06:59 Specimen Type ART Sample Site Art Line pH 7.49 H Bicarbonate Actual 27.8 H Total CO2 29 Base Excess 4 H O2 Saturation 97 O2 % 30.0 ABG pCO2 36.9 ABG pO2 80 Respiration Rate 18 O2 Delivery Device Adult Vent Vent Mode AC Tidal Volume 450.0 POC PEEP 5 Physical Exam Narrative Intubated, no apparent distress S1, S2, RRR Lung sounds diminished posteriorly. No wheezes, rhonchi or rales noted Abdomen soft, positive bowel sounds No pitting edema bilateral lower legs Indwelling Machado clear yellow urine in bag Assessment & Plan Assessment/Plan (1) History of renal transplant: PLAN: This is 54 year old male who is chronically immunosuppressed status post renal transplant more than 10 years ago and has underlying CKD 3 who presented to the emergency department with complaints of generalized malaise, fever and chills. COVID, RSV negative. Patient was hypotensive in the emergency room, patient was ultimately admitted to ICU and started on vasopressor support. - Acute kidney injury superimposed on CKD stage III; [place] secondary to renal ischemia in the setting of septic shock. Fortunately patient is not acidotic, hyperkalemic, nor fluid overloaded and therefore does not need dialysis. Serum creatinine 3.0 on admission --> 3.90 yesterday and today SCr 4.04mg/dL. Possibly kidney function is beginning to plateau and start improving. Urine output is picking up. Continue holding CellCept due to active infection. Tacrolimus level pending (drawn 05/19). Continue stress dose steroids. Off IV fluids. Replace potassium as ordered. Started on tube feeding. Discussed nephrology plan with family again today at bedside. We will continue to follow him closely. Labs ordered for am. - CKD stage III; baseline creatinine ranging around 1.5 to 1.9 mg/dL. Patient has had multiple [place] episodes where creatinine will level off to near baseline. Lasix on hold. He has not required [employer]PER[employer] since transplant -Right lower extremity DVT/acute right subclavian DVT/chronic right IJ DVT; started on heparin drip -Respiratory distress s/p intubation 05/20. -Sepsis; urine culture Enterococcus. Blood cultures no growth in 48 hours. On IV antibiotics per ID, [place]. Blood pressures have improved, requiring less pressor support. (2) [place] (acute kidney injury):
--- NOTE | 2024-05-21 11:58 | PCM.PN.HOSP ---
Reason for Visit Reason for Visit: Diagnoses Sepsis, unspecified organism (05/19/24) Disorder involving the immune mechanism, unspecified (05/19/24) Acute embolism and thrombosis of unspecified deep veins of unspecified lower extremity (05/19/24) Acute kidney failure, unspecified (05/19/24) Fever, unspecified (05/19/24) Severe sepsis without septic shock (05/19/24) Severe sepsis with septic shock (05/19/24) Kidney transplant status (05/19/24) Subjective Subjective Patient remains intubated, blood pressure improving, overall clinically stabilizing though remains on low-dose Levophed Objective Data Objective Data Vital Signs: Vital Signs Temp Pulse Resp BP Pulse Ox O2 Del Method O2 Flow Rate 97.7 F L 72 16 111/62 99 Mechanical Ventilator 30 05/21/24 08:00 05/21/24 11:00 05/21/24 11:00 05/21/24 11:00 05/21/24 11:00 05/21/24 11:00 05/21/24 10:00 FiO2 30 05/21/24 11:00 Oxygen Flow Rate (L/min) 30 Oxygen Delivery Method Mechanical Ventilator Weight: 66.5 kg Body Mass Index (BMI) 24.3 Intake & Output: Intake and Output for Last 24 Hours 05/19/24 05/20/24 05/21/24 23:59 23:59 23:59 Intake Total 6234.40 / 6295.94 3826.21 / 3836.69 2448.50 / 2448.50 Output Total 905 / 905 1250 / 1250 1325 / 1325 Balance 5329.40 / 5390.94 2576.21 / 2586.69 1123.50 / 1123.50 Lab / Micro Data 05/21/24 04:40 05/21/24 04:40 Labs: Laboratory Results - last 24 hr 05/19/24 06:25: C-React Prot High Sens 41.44 H 05/19/24 08:00: Diff Path Review Reviewed 05/20/24 05:25: Diff Path Review Reviewed 05/20/24 19:20: PT 22.5 H, INR 2.0, APTT 242.2 H* 05/21/24 04:40: WBC 9.0, RBC 2.79 L, Hgb 8.0 L, Hct 24.7 L, MCV 88.5, MCH 28.7, MCHC 32.4, RDW Std Deviation 45.0 H, RDW Coeff of Adamaris 13.8, Plt Count 72 L, MPV 11.6, Immature Gran % (Auto) 0.800, Neut % (Auto) 87.2 H, Lymph % (Auto) 5.6 L, [place] % (Auto) 6.3, Eos % (Auto) 0.0, Baso % (Auto) 0.1, Absolute Neuts (auto) 7.8 H, Absolute Lymphs (auto) 0.50 L, Nucleated RBC % 0, Differential Comment SCANNED, APTT 83.0 H, Sodium 139, Potassium 3.2 L, Chloride 99, Carbon Dioxide 28.0, Anion Gap 12, BUN 66 H, Creatinine 4.04 H, Estim Creat Clear Calc 17.97, Est GFR (MDRD) Af Amer 20 L, Est GFR (MDRD) Non-Af 16 L, BUN/Creatinine Ratio 16.3, Glucose 186 H, Calcium 7.4 L, Phosphorus 3.8, Magnesium 2.4, Total Bilirubin 0.90, AST 99 H, ALT 43, Alkaline Phosphatase 38 L, Total Protein 4.4 L, Albumin 2.1 L, Globulin 2.3, Albumin/Globulin Ratio 0.9 Micro: Microbiology 05/20/24 00:23 Sputum, Induced/Lukens Gram Stain - Final 05/20/24 00:23 Sputum, Induced/Lukens Respiratory Culture - Preliminary Appears to be normal respiratory vera. Further studies to follow. 05/18/24 23:55 Urine, Clean Catch Urine Culture - Final Enterococcus faecalis 05/18/24 22:27 Blood Culture (Wb) - Anticubital Right Blood Culture - Preliminary No growth in 48 hours. 05/19/24 07:10 Mucosa - Nasopharyngeal Respiratory Panel (PCR) - Final 05/18/24 22:37 Mucosa - Nose SARS-CoV-2, Influenza & RSV (PCR) - Final ABG Data ABG results: ABG 05/21/24 06:59 Specimen Type ART Sample Site Art Line pH 7.49 H Bicarbonate Actual 27.8 H Total CO2 29 Base Excess 4 H O2 Saturation 97 O2 % 30.0 ABG pCO2 36.9 ABG pO2 80 Respiration Rate 18 O2 Delivery Device Adult Vent Vent Mode AC Tidal Volume 450.0 POC PEEP 5 Physical Exam Narrative General: Intubated and resting comfortably HEENT: Atraumatic, normocephalic Eyes: Eyes closed, no spontaneous opening Neck: Supple Respiratory: Mechanically ventilated Cardiovascular: Regular rate and rhythm GI: Soft Extremities: Trace lower extremity edema Musculoskeletal: Resting comfortably, not moving extremities spontaneously Neuro: Unable to participate in neuro exam secondary to intubated and sedated Skin: No rashes appreciated Psych: Unable to cooperate secondary to intubated and sedated Assessment & Plan Assessment/Plan (1) Sepsis: QUALIFIERS: Sepsis type: sepsis due to unspecified organism Sepsis acute organ dysfunction status: with acute organ dysfunction Severe sepsis acute organ dysfunction type: acute renal failure Acute renal failure type: unspecified Severe sepsis shock status: without septic shock Qualified Code(s): A41.9 - Sepsis, unspecified organism; R65.20 - Severe sepsis without septic shock; N17.9 - Acute kidney failure, unspecified (2) [place] (acute kidney injury): (3) Fever of unknown origin: PLAN: Plan # Septic shock secondary to enteric coccus UTI -Patient presented with [place], fever, leukopenia, thrombocytopenia -Patient started on IV Zosyn and given IV fluids and admitted to ICU -Patient required placement of a central line and levo, vaso, phenylephrine at max doses to maintain blood pressure -ID consulted -Patient COVID and respiratory virus negative -Respiratory culture, urine culture, blood cultures pending, no definitive source yet identified though patient has what appears to be a developing pneumonia in left lung that was not present on previous chest x-ray -CT abdomen and pelvis on admission not revealing of source -Given patient's clinical deterioration yesterday daptomycin was added -This a.m. pressor requirement is improving, remains on Levophed -Patient is chronically immunosuppressed, holding mycophenolate per nephrology recommendations at this time -Patient on stress dose steroids -05/21: Urine culture grew enteric coccus, infectious disease continued patient on Zosyn. Patient remains on stress dose steroids, weaning norepinephrine as able # Respiratory distress status post intubation -Patient with respiratory distress overnight, ABG showed acidosis noted. Be secondary to metabolic acidosis which likely was causing patient to have altered breathing pattern in order to try to correct for his acidosis -He was intubated, remains in ICU on mechanical ventilation -ABG did show improvement of acidosis -05/21: Improving, may be able to be extubated soon, will be reevaluated tomorrow. On tube feeds present # Right lower extremity acute DVT/acute right subclavian DVT/chronic right IJ DVT/known factor V Leiden mutation -Patient found to have right lower extremity DVT was also noted to have thrombus in right IJ which was chronic and acute right subclavian DVT -Initially due to patient's low platelets and hemoglobin it was felt IVC filter may be most appropriate but given his significant stability this was unable to be performed yesterday -Today given patient's lab stability will be started on heparin drip so that this can be discontinued if any signs of bleeding -05/21: Hemoglobin 8 today, was 9.3 yesterday however 7.9 the day before so overall seems to be stabilized, platelets 72, yesterday 108 but the day before 76. No overt signs or symptoms of bleeding at this time. Patient on heparin drip #[place] on CKD unclear subtype in setting of renal transplant x 2 -Creatinine appear to be trending up over time on outpatient basis but is acutely worsened -Likely secondary to septic shock and infection -Tacrolimus level still pending -Mycophenolate on hold due to infection -Treat underlying illness -Nephrology following -05/21: Creatinine appears to be beginning to stabilize with a creatinine of 4.04 today and 3.90 yesterday. Urine output is improving. CellCept is held due to active infection and tacrolimus level is pending. Continue to treat underlying infection, nephrology following # History of CAD status post CABG x 4 -Patient on aspirin, statin held temporarily given potential interaction with daptomycin -05/21: Will resume atorvastatin now that patient off daptomycin # Elevated troponin -Suspect secondary to hypotension and critical illness -Patient had echocardiogram which did not show any wall motion abnormalities -05/21: No further cardiac workup at this time # History of chronic heart failure with preserved ejection fraction -Monitor volume status, does not appear overloaded at present -Echocardiogram this admission showed EF of 50% and stage II diastolic dysfunction, no wall motion abnormalities noted -05/21: Urine output beginning to improve # History of neurogenic bladder -Patient status post Machado placement -05/21: Continue Machado catheter, urine output improving. Patient self caths at home so will likely continue Machado until discharge/post discharge Chronic medical problems: # Lung nodule -CT of abdomen pelvis showed an ill-defined nodule in superior segment of right lower lobe that measured 7 mm -Follow-up in 6 months recommended # Pancytopenia -Unclear etiology, likely multifactorial -White blood cell count has recovered but patient remains anemic and thrombocytopenic -May need to follow with hematology on discharge if counts do not recover -05/21: Still anemic and thrombocytopenic but this appears to be stable #DVT ppx: heparin drip Lian Soler MD Time spent in the patient's overall evaluation,decision-making process, review of diagnostic data, adjustment of management, discussion with other providers, nursing nursing and ancillary staff involved in patient's care documentation, 38 minutes Charges/Coding Visit Charges Inpatient E&M: 45228 Subs Hosp L2
[2024-05-21 12:36] LABS: Partial Thromboplast Time 59.1 Seconds (24.1-36.2)
[2024-05-21] MEDS: dexMEDEtomidine 400 MCG in 0.9% Normal Saline (100mL Bag) 96 ML 10.5 MCG CONT INF (14:31)
[2024-05-21] MEDS: Vital AF 1.2 Cal Liquid 1,000 ML 56 ML GT (14:33)
[2024-05-21 15:09] LABS: CMV Acute Antibody IgM < 30.0 AU/mL (0.0-29.9); CMV Antibody IgG > 10.00 U/mL (0.00-0.59); EBV Acute VCA IgM < 36.0 U/mL (0.0-35.9); EBV-VCA IgG 25.7 U/mL (0.0-17.9); PARVOVIRUS B19 IGG 0.2 index (0.0-0.8); PARVOVIRUS B19 IGM 0.2 index (0.0-0.8)
[2024-05-21] MEDS: HEPARIN/D5w 25,000 UNITS 25,000 UNITS/250 ML IV.SOLN. 6 UNITS CONT INF (17:26)
[2024-05-21 17:44] LABS: Partial Thromboplast Time 55.9 Seconds (24.1-36.2)
[2024-05-21] MEDS: fentaNYL drip 100 ML 5 MCG CONT INF (19:58)
[2024-05-21 20:07] LABS: Tacrolimus (FK506) 2.4 ng/mL (2.0-20.0)
[2024-05-21] MEDS: 0.9% Normal Saline (250mL Bag) 250 ML 15 ML IV (20:48)
[2024-05-21] MEDS: Atorvastatin Calcium 40 MG Tablet PO (21:48)
[2024-05-21] MEDS: dexMEDEtomidine 400 MCG in 0.9% Normal Saline (100mL Bag) 96 ML 12 MCG CONT INF (23:55)
[2024-05-22] VITALS (30 sets, daily range): BP systolic 83–141; BP diastolic 44–77; PULSE 58–98; RESP 14–22; TEMP 36.1–36.6; O2SAT 2–99; BMI 25.6
[2024-05-22] MEDS: Hydrocortisone Sod Succinate 100 MG/2 ML Vial 50 MG IV ×4 (01:33→17:28)
[2024-05-22 05:03] LABS: Absolute Lymphocyte Count 0.48 X10^3/uL (0.83-4.51); Absolute Neutrophil Count 9.4 X10^3/uL (2.0-7.7); Basophil# 0.07 X10^3/uL; Basophil% 0.6 % (0-1); Eosinophil# 0.02 X10^3/uL; Eosinophils% 0.2 % (0-5); Hematocrit 25.4 % (40-54); Hemoglobin 7.9 g/dL (13.0-16.5); Lymphocyte # 0.48 X10^3/ul (0.83-4.51); Lymphocyte % 4.2 % (19-41); Mean Corp Hgb Conc 31.1 g/dL (32-36); Mean Corpuscular Hgb 28.1 pg (27.0-32.0); Mean Corpuscular Volume 90.4 fL (80-94); Monocyte# 1.35 X10^3/uL; Monocyte% 11.8 % (0-10); NRBC Flagged by Analyzer 0 % (0-5); Neutrophil # 9.35 X10^3/uL (2.7-7.7); Neutrophil % 81.5 % (47-70); POSITIVE COUNT YES; POSITIVE DIFFERENTIAL YES; POSITIVE MORPHOLOGY YES; Platelet Count 73 K/mm3 (150-450); RBC Distribution Width CV 14.1 % (11.6-14.6); RBC Distribution Width SD 46.5 fl (35.1-43.9); Red Blood Count 2.81 M/mm3 (4.6-6.2); White Blood Count 11.5 K/mm3 (4.4-11.0)
[2024-05-22 05:06] LABS: Differential Indicated SCAN CRITERIA MET
[2024-05-22 05:12] LABS: Partial Thromboplast Time 38.9 Seconds (24.1-36.2)
[2024-05-22] MEDS: Scopolamine 1mg/72hr Patch 1 PATCH TD (05:27)
[2024-05-22] MEDS: Piperacil/Tazobactam 3.375 GM in 0.9% Normal Saline (50mL MB+) 50 ML IV ×2 (05:29→17:29)
[2024-05-22 05:36] LABS: ALB/GLOB Ratio 0.8 RATIO (0.9-2.4); AST(SGOT) 64 U/L (15-37); Alanine Aminotransfer ALT/SGPT 36 U/L (16-61); Albumin, Serum 2.1 g/dL (3.2-5.0); Alkaline Phosphatase 56 U/L (45-117); Anion Gap 9 (5-15); BUN 74 mg/dL (7-18); BUN/Creat Ratio 21.5 RATIO (10-20); Calcium,Total 8.1 mg/dL (8.5-10.1); Chloride 104 mmol/L (98-107); Creatinine, Serum 3.44 mg/dL (0.70-1.30); EST Glomerular Filtration Rate 20 mL/min (>60); Est Glom Filt Rate - Afr Amer 24 mL/min (>60); Estimated Creatinine Clearance 21.11 ml/min; Globulin 2.7 g/dL (2.2-4.2); Glucose 137 mg/dL (74-106); Potassium 2.5 mmol/L (3.5-5.1); Protein, Total 4.8 g/dL (6.4-8.2); Sodium Level 140 mmol/L (136-145)
[2024-05-22 06:06] LABS: Differential Comment SCANNED
[2024-05-22 06:07] LABS: Platelet Estimate SLT DEC (ADEQ)
[2024-05-22] MEDS: Potassium Chloride 10mEq/100mL 10 MEQ/100 ML IV.SOLN. 100 MEQ IV BOLUS ×4 (06:29→14:25)
[2024-05-22] MEDS: Norepinephrine 16 mg/250 mL 0.9% NS 2.8 MG CONT INF (06:45)
--- NOTE | 2024-05-22 07:04 | PCM.PN.INT ---
Assessment & Plan Assessment/Plan (1) Sepsis: QUALIFIERS: Sepsis type: sepsis due to unspecified organism Sepsis acute organ dysfunction status: with acute organ dysfunction Severe sepsis acute organ dysfunction type: acute renal failure Acute renal failure type: unspecified Severe sepsis shock status: without septic shock Qualified Code(s): A41.9 - Sepsis, unspecified organism; R65.20 - Severe sepsis without septic shock; N17.9 - Acute kidney failure, unspecified (2) [place] (acute kidney injury): (3) Fever of unknown origin: PLAN: Plan RECOMMENDATIONS: 1. Proceed with a trial of extubation this morning. 2. Once extubated, wean supplemental oxygen to maintain saturations at or above 90%. 3. Bedside swallow evaluation prior to advancement of diet. 4. Wean Levophed to maintain a mean arterial pressure at or above 65 mmHg. 5. Antimicrobials per ID recommendations. 6. Continue stress dose steroids. 7. Continue to monitor blood counts and transfuse if hemoglobin drops below 7 g/dL. Continue PPI therapy as ordered. 8. Continue weight-based heparin infusion. If the patient were to bleed or develop worsening anemia, IVC filter can be placed. 9. Encourage incentive spirometer use and mobilize patient as tolerated. IMPRESSIONS: 1. Septic shock secondary to Enterococcus UTI The patient presented to the hospital with generalized malaise, fevers and chills. The patient is chronically immunosuppressed due to a history of renal transplantation. Urine culture is demonstrating growth of pansensitive Enterococcus. Accordingly, we will plan to continue antimicrobials under the discretion of infectious diseases. The patient's baseline immunosuppressive therapy is on hold. The patient will be continued on vasopressor support to maintain a mean arterial pressure at or above 65 mmHg, along with stress dose steroids. 2. Acute hypoxemic respiratory failure The patient was ultimately intubated on May 20 due to increased work of breathing in the setting of worsening metabolic acidosis. His acid-base status has improved with invasive mechanical ventilatory support. The patient's renal function is now improving. He passed a spontaneous breathing trial this morning and was able to be extubated. Will plan to continue supplemental oxygen to maintain saturations at or above 90%. 3. Acute on chronic kidney disease Clinical concern for prerenal etiology in the setting of #1. The patient is immunosuppressed at baseline without any missed doses, according to . Nephrology is following to assist with medical management. Renal function is now beginning to improve. 4. 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 Repeat lower extremity Doppler study did reveal an acute DVT in the right common femoral vein. I do suspect that the patient is at high risk for PE as well. However, given his underlying renal insufficiency, CTA chest is not able to be completed. In light of the aforementioned, the patient was placed on a weight-based heparin infusion, despite his baseline anemia and thrombocytopenia. If the patient bleeds or develops worsening anemia, will discontinue heparin and proceed with IVC filter placement. 5. Chronic anemia and thrombocytopenia Continue to monitor blood counts and transfuse if hemoglobin drops below 7 g/dL. Continue PPI therapy as ordered. 6. History of coronary artery disease status post CABG/peripheral vascular disease/hypertension/hyperlipidemia/history of tobacco dependency Complicates care, management, recovery and prognosis. Continue to hold home antihypertensives. Physical therapy to continue to work with the patient. CODE STATUS: Full code TIME: 34 minutes of critical care time, independent of procedures, was spent addressing the patient's septic shock, acute respiratory failure, acute on chronic kidney disease, history of VTE with acute DVT, anemia and thrombocytopenia, review of all data and collaboration with the care team. Subjective Subjective The patient was seen and examined at the bedside this morning. Events from the last 24 hours have been reviewed. The patient is currently afebrile. His Levophed was ultimately able to be weaned off yesterday, but had to be restarted this morning at a low dose of 3 mcg/min to maintain hemodynamic stability. The patient is doing well from a respiratory perspective with an FiO2 requirement of 25%. He passed his spontaneous breathing trial this morning without complication. He is alert and able to follow commands. Therefore, the patient will successfully extubated this morning. White blood cell count is stable at 11,000 with a hemoglobin of 7.9 g/dL and platelet count of 73,000. Potassium is low at 2.5. Creatinine has improved to 3.4. Objective Data Objective Data The patient's most recent lab work, culture data and imaging studies have all been personally reviewed. Surface echocardiogram demonstrated stage II diastolic dysfunction with an ejection fraction of 50%. Pulmonary artery systolic pressure was estimated to be 28 mmHg. Lower extremity Doppler study revealed an acute DVT in the right common femoral vein. Respiratory viral panel was negative. Blood and sputum culture have not demonstrated any growth. Urine culture was positive for pansensitive Enterococcus faecalis. Vital Signs: Vital Signs Temp Pulse Resp BP Pulse Ox O2 Del Method O2 Flow Rate 97.4 F L 77 16 83/44 L 94 Mechanical Ventilator 30 05/22/24 00:00 05/22/24 05:16 05/22/24 05:16 05/22/24 06:45 05/22/24 05:16 05/22/24 04:00 05/21/24 10:00 FiO2 25 05/22/24 04:00 Oxygen Flow Rate (L/min) 30 Oxygen Delivery Method Mechanical Ventilator Weight: 154 lb 1.65 oz Body Mass Index (BMI) 25.6 Intake & Output: Intake and Output for Last 24 Hours 05/20/24 05/21/24 05/22/24 23:59 23:59 23:59 Intake Total 3826.21 / 3836.69 3331.98 / 3336.98 20 Output Total 1250 / 1250 2475 / 2475 350 / 350 Balance 2576.21 / 2586.69 856.98 / 861.98 -330 / -330 Lab / Micro Data Attestation: I reviewed the patient's lab results. 05/22/24 04:50 05/22/24 04:50 Labs: Laboratory Results - last 24 hr 05/19/24 08:00: Diff Path Review Reviewed 05/19/24 11:00: Tacrolimus 2.4, CMV IgG Ab > 10.00 H, CMV IgM Ab < 30.0, CMV Qnt PCR IU/mL Positive < 200, CMV Qnt PCR log IU/mL TNP, EBV Capsid Ag IgG Ab 25.7 H, EBV Capsid Ag IgM Ab < 36.0, EBV Nuclear Ag IgG Ab 529.0 H, EBV Antibody Interp Comment, Parvovirus B19 IgG Ab 0.2, Parvovirus B19 IgM Ab 0.2, Miscellaneous Test 05/20/24 05:25: Diff Path Review Reviewed 05/21/24 04:40: Differential Comment SCANNED 05/21/24 12:00: APTT 59.1 H 05/21/24 17:20: APTT 55.9 H 05/22/24 04:50: WBC 11.5 H, RBC 2.81 L, Hgb 7.9 L, Hct 25.4 L, MCV 90.4, MCH 28.1, MCHC 31.1 L, RDW Std Deviation 46.5 H, RDW Coeff of Adamaris 14.1, Plt Count 73 L, MPV 12.0, Immature Gran % (Auto) 1.700 H, Neut % (Auto) 81.5 H, Lymph % (Auto) 4.2 L, [place] % (Auto) 11.8 H, Eos % (Auto) 0.2, Baso % (Auto) 0.6, Absolute Neuts (auto) 9.4 H, Absolute Lymphs (auto) 0.48 L, Nucleated RBC % 0, Differential Comment SCANNED, Platelet Estimate SLT DEC, APTT 38.9 H, Sodium 140, Potassium 2.5 L*, Chloride 104, Carbon Dioxide 27.0, Anion Gap 9, BUN 74 H, Creatinine 3.44 H, Estim Creat Clear Calc 21.11, Est GFR (MDRD) Af Amer 24 L, Est GFR (MDRD) Non-Af 20 L, BUN/Creatinine Ratio 21.5 H, Glucose 137 H, Calcium 8.1 L, Total Bilirubin 0.50, AST 64 H, ALT 36, Alkaline Phosphatase 56, Total Protein 4.8 L, Albumin 2.1 L, Globulin 2.7, Albumin/Globulin Ratio 0.8 L Micro: Microbiology 05/20/24 00:23 Sputum, Induced/Lukens Gram Stain - Final 05/20/24 00:23 Sputum, Induced/Lukens Respiratory Culture - Preliminary Appears to be normal respiratory vera. Further studies to follow. 05/18/24 23:55 Urine, Clean Catch Urine Culture - Final Enterococcus faecalis 05/18/24 22:27 Blood Culture (Wb) - Anticubital Right Blood Culture - Preliminary No growth in 48 hours. 05/19/24 07:10 Mucosa - Nasopharyngeal Respiratory Panel (PCR) - Final 05/18/24 22:37 Mucosa - Nose SARS-CoV-2, Influenza & RSV (PCR) - Final ABG Data ABG results: ABG 05/19/24 05/20/24 05/20/24 23:11 00:54 05:30 Specimen Type ART ART ART Sample Site Art Line Art Line Art Line pH 7.15 L* 7.51 H 7.45 Bicarbonate Actual 14.4 L 18.9 L 18.8 L Total CO2 16 20 20 Base Excess -15 L -4 L -5 L O2 Saturation 99 100 H 97 O2 % 6.0 100.0 30.0 ABG pCO2 41.1 23.7 L 26.9 L ABG pO2 173 H 446 H* 81 Respiration Rate 28 22 O2 Delivery Device Cannula Adult Vent Adult Vent Vent Mode Not entered AC AC Tidal Volume 450.0 450.0 POC PEEP 5 5 Crit Call To/Read Back Yes Yes Blood Gas Notified Whom Sanders Blood Gas Notified Time 23:13:11 00:55:45 Radiography Diagnostic Testing: Radiology Impression Chest X-Ray 05/20/24 05:55 IMPRESSION: Ill-defined airspace opacity in the left lung base suggesting pneumonia. Calcified pleural plaques noted bilaterally. Small right pleural effusion. Electronically Signed: Estephania Luque MD at 6:44 EDT Reading Location ID and State: [facility] / ID Tel , Service support , Physical Exam Const alert Constitutional Narrative: Remains intubated and mechanically ventilated. Tolerating spontaneous mode mechanical ventilation currently. General Appearance: cooperative HEENT normocephalic and head/scalp atraumatic Mouth: endotracheal tube in place and OG tube in place Eyes PERRL and conjunctivae normal Neck supple General: trachea midline and CVC in place Resp Auscultation: diminished lung sounds Cardio regular rate and regular rhythm GI normal to inspection, nondistended, normoactive bowel sounds Extremity no clubbing, cyanosis or edema Skin no rashes or lesions noted Neuro Neuro Narrative: Alert and able to follow simple commands. Charges/Coding Procedures Hospitalists Procedures: [id number] Critical Care 1st Hr
[2024-05-22] MEDS: Ipratropium/Albuterol Sulfate 3 ML AMPUL.NEB INHALATION (09:18)
[2024-05-22] MEDS: Ferrous Sulfate 300 MG/5 ML UDC GT (10:26)
[2024-05-22] MEDS: Aspirin 81 MG TAB.CHEW GT (10:26)
[2024-05-22] MEDS: Lactobacillis Acidophilus 1 CAP GT (10:26)
[2024-05-22] MEDS: Midodrine HCl 5 MG Tablet 10 MG PO (10:33)
--- NOTE | 2024-05-22 10:33 | PN.RENAL_ITS ---
Subjective Subjective Patient was extubated this morning. Sitting up in bed, talking with sister who is at bedside. Denies any complaints. In great spirits Objective Data Objective Data Vital Signs: Vital Signs Temp Pulse Resp BP Pulse Ox O2 Del Method O2 Flow Rate 97.4 F L 58 L 18 83/44 L 93 Nasal Cannula 2 05/22/24 00:00 05/22/24 09:19 05/22/24 09:19 05/22/24 06:45 05/22/24 07:00 05/22/24 07:00 05/22/24 07:00 FiO2 25 05/22/24 04:00 Oxygen Flow Rate (L/min) 2 Oxygen Delivery Method Nasal Cannula Weight: 69.9 kg Body Mass Index (BMI) 25.6 Intake & Output: Intake and Output for Last 24 Hours 05/20/24 05/21/24 05/22/24 23:59 23:59 23:59 Intake Total 3826.21 / 3836.69 3331.98 / 3336.98 1232.2 / 1232.2 Output Total 1250 / 1250 2475 / 2475 350 / 350 Balance 2576.21 / 2586.69 856.98 / 861.98 882.2 / 882.2 Lab / Micro Data 05/22/24 04:50 05/22/24 04:50 Labs: Laboratory Results - last 24 hr 05/19/24 11:00: Tacrolimus 2.4, CMV IgG Ab > 10.00 H, CMV IgM Ab < 30.0, CMV Qnt PCR IU/mL Positive < 200, CMV Qnt PCR log IU/mL TNP, EBV Capsid Ag IgG Ab 25.7 H , EBV Capsid Ag IgM Ab < 36.0, EBV Nuclear Ag IgG Ab 529.0 H, EBV Antibody Interp Comment, Parvovirus B19 IgG Ab 0.2, Parvovirus B19 IgM Ab 0.2, Miscellaneous Test 05/21/24 12:00: APTT 59.1 H 05/21/24 17:20: APTT 55.9 H 05/22/24 04:50: WBC 11.5 H, RBC 2.81 L, Hgb 7.9 L, Hct 25.4 L, MCV 90.4, MCH 28.1, MCHC 31.1 L, RDW Std Deviation 46.5 H, RDW Coeff of Adamaris 14.1, Plt Count 73 L, MPV 12.0, Immature Gran % (Auto) 1.700 H, Neut % (Auto) 81.5 H, Lymph % (Auto) 4.2 L, [place] % (Auto) 11.8 H, Eos % (Auto) 0.2, Baso % (Auto) 0.6, A bsolute Neuts (auto) 9.4 H, Absolute Lymphs (auto) 0.48 L, Nucleated RBC % 0, Differential Comment SCANNED, Platelet Estimate SLT DEC, APTT 38.9 H, Sodium 140, Potassium 2.5 L*, Chloride 104, Carbon Dioxide 27.0, Anion Gap 9, BUN 74 H, Creatinine 3.44 H, Estim Creat Clear Calc 21.11, Est GFR (MDRD) Af Amer 24 L, E st GFR (MDRD) Non-Af 20 L, BUN/Creatinine Ratio 21.5 H, Glucose 137 H, Calcium 8.1 L, Total Bilirubin 0.50, AST 64 H, ALT 36, Alkaline Phosphatase 56, Total Protein 4.8 L, Albumin 2.1 L, Globulin 2.7, Albumin/Globulin Ratio 0.8 L Micro: Microbiology 05/20/24 00:23 Sputum, Induced/Lukens Gram Stain - Final 05/20/24 00:23 Sputum, Induced/Lukens Respiratory Culture - Preliminary Appears to be normal respiratory vera. Further studies to follow. 05/18/24 23:55 Urine, Clean Catch Urine Culture - Final Enterococcus faecalis 05/18/24 22:27 Blood Culture (Wb) - Anticubital Right Blood Culture - Preliminary No growth in 48 hours. 05/19/24 07:10 Mucosa - Nasopharyngeal Respiratory Panel (PCR) - Final 05/18/24 22:37 Mucosa - Nose SARS-CoV-2, Influenza & RSV (PCR) - Final Physical Exam Narrative Alert and oriented x 3, no apparent distress S1, S2, RRR Lung sounds diminished posteriorly. No wheezes, rhonchi or rales noted Abdomen soft, positive bowel sounds No pitting edema bilateral lower legs Indwelling [place] clear yellow urine in bag Assessment & Plan Assessment/Plan (1) History of renal transplant: PLAN: This is 54 year old male who is chronically immunosuppressed status post renal transplant more than 10 years ago and has underlying CKD 3 who presented to the emergency department with complaints of generalized malaise, fever and chills. COVID, RSV negative. Patient was hypotensive in the emergency room, patient was ultimately admitted to ICU and started on vasopressor support. - Acute kidney injury superimposed on CKD stage III; [place] secondary to renal ischemia in the setting of septic shock. Fortunately patient is not acidotic, hyperkalemic, nor fluid overloaded and therefore does not need dialysis. Serum creatinine 3.0 on admission --> SCr 4.04mg/dL, this was peak--> today SCr 3.44mg/dL. Urine output has picked up. 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 Holding CellCept due to active infection. Tacrolimus level 2.4, will continue tacrolimus 2mg daily (home dose). Receiving stress dose steroids. Off IV fluids. Replace potassium as ordered and will check K+ at 2pm if below 3.5 will replace potassium. Patient to have swallow eval this morning and hopefully will be able to be started on oral feedings. Discussed with patient can eat some potassium rich foods today. Discussed nephrology plan with patient and family again today at bedside. We will continue to follow him closely. Labs ordered for am. - CKD stage III; baseline creatinine ranging around 1.5 to 1.9 mg/dL. Patient has had multiple [place] episodes where creatinine will level off to near baseline. He has not required PULMONARY FUNCTION TECHNOLOGIST since transplant. Lasix on hold. -Right lower extremity DVT/acute right subclavian DVT/chronic right IJ DVT; was on heparin drip -Respiratory distress s/p intubation 05/20. Extubated 05/22. -Sepsis; urine culture Enterococcus. Blood cultures no growth in 48 hours. On IV antibiotics per ID, Shereesyn. Blood pressures have improved, off IV pressors and on midodrine. (2) [place] (acute kidney injury):
[2024-05-22] MEDS: Pantoprazole Sodium 40 MG in 0.9% Normal Saline (100mL MB+) 100 ML 330 MG IV ×2 (10:34→20:32)
[2024-05-22] MEDS: TACROLIMUS 1 MG PO (12:48)
[2024-05-22] MEDS: Menthol/Lanolin/Calamine/Znox 113 GM Tube 1 APPLIC TOPICAL ×2 (12:49→23:36)
--- NOTE | 2024-05-22 13:18 | PCM.PN.HOSP ---
Reason for Visit Reason for Visit: Diagnoses Sepsis, unspecified organism (05/19/24) Disorder involving the immune mechanism, unspecified (05/19/24) Acute embolism and thrombosis of unspecified deep veins of unspecified lower extremity (05/19/24) Acute kidney failure, unspecified (05/19/24) Fever, unspecified (05/19/24) Severe sepsis without septic shock (05/19/24) Severe sepsis with septic shock (05/19/24) Kidney transplant status (05/19/24) Subjective Subjective Patient recently extubated at time of exam, reports a little bit of shortness of breath since he was rolled and has a little bit of abdominal cramping with some diarrhea, otherwise feeling better Objective Data Objective Data Vital Signs: Vital Signs Temp Pulse Resp BP Pulse Ox O2 Del Method O2 Flow Rate 97.8 F 73 16 133/71 H 97 Nasal Cannula 1 05/22/24 12:00 05/22/24 13:00 05/22/24 13:00 05/22/24 13:00 05/22/24 13:00 05/22/24 13:00 05/22/24 13:00 FiO2 25 05/22/24 04:00 Oxygen Flow Rate (L/min) 1 Oxygen Delivery Method Nasal Cannula Weight: 69.9 kg Body Mass Index (BMI) 25.6 Intake & Output: Intake and Output for Last 24 Hours 05/20/24 05/21/24 05/22/24 23:59 23:59 23:59 Intake Total 3826.21 / 3836.69 3331.98 / 3336.98 1816.2 / 1816.2 Output Total 1250 / 1250 2475 / 2475 750 / 750 Balance 2576.21 / 2586.69 856.98 / 861.98 1066.2 / 1066.2 Lab / Micro Data 05/22/24 04:50 05/22/24 04:50 Labs: Laboratory Results - last 24 hr 05/19/24 11:00: Tacrolimus 2.4, CMV IgG Ab > 10.00 H, CMV IgM Ab < 30.0, CMV Qnt PCR IU/mL Positive < 200, CMV Qnt PCR log IU/mL TNP, EBV Capsid Ag IgG Ab 25.7 H, EBV Capsid Ag IgM Ab < 36.0, EBV Nuclear Ag IgG Ab 529.0 H, EBV Antibody Interp Comment, Parvovirus B19 IgG Ab 0.2, Parvovirus B19 IgM Ab 0.2, Miscellaneous Test 05/21/24 17:20: APTT 55.9 H 05/22/24 04:50: WBC 11.5 H, RBC 2.81 L, Hgb 7.9 L, Hct 25.4 L, MCV 90.4, MCH 28.1, MCHC 31.1 L, RDW Std Deviation 46.5 H, RDW Coeff of Adamaris 14.1, Plt Count 73 L, MPV 12.0, Immature Gran % (Auto) 1.700 H, Neut % (Auto) 81.5 H, Lymph % (Auto) 4.2 L, Yell % (Auto) 11.8 H, Eos % (Auto) 0.2, Baso % (Auto) 0.6, Absolute Neuts (auto) 9.4 H, Absolute Lymphs (auto) 0.48 L, Nucleated RBC % 0, Differential Comment SCANNED, Platelet Estimate SLT DEC, APTT 38.9 H, Sodium 140, Potassium 2.5 L*, Chloride 104, Carbon Dioxide 27.0, Anion Gap 9, BUN 74 H, Creatinine 3.44 H, Estim Creat Clear Calc 21.11, Est GFR (MDRD) Af Amer 24 L, Est GFR (MDRD) Non-Af 20 L, BUN/Creatinine Ratio 21.5 H, Glucose 137 H, Calcium 8.1 L, Total Bilirubin 0.50, AST 64 H, ALT 36, Alkaline Phosphatase 56, Total Protein 4.8 L, Albumin 2.1 L, Globulin 2.7, Albumin/Globulin Ratio 0.8 L Micro: Microbiology 05/20/24 00:23 Sputum, Induced/Lukens Gram Stain - Final 05/20/24 00:23 Sputum, Induced/Lukens Respiratory Culture - Final 05/18/24 23:55 Urine, Clean Catch Urine Culture - Final Enterococcus faecalis 05/18/24 22:27 Blood Culture (Wb) - Anticubital Right Blood Culture - Preliminary No growth in 48 hours. 05/19/24 07:10 Mucosa - Nasopharyngeal Respiratory Panel (PCR) - Final 05/18/24 22:37 Mucosa - Nose SARS-CoV-2, Influenza & RSV (PCR) - Final Physical Exam Narrative General: Alert, oriented HEENT: Atraumatic, normocephalic Eyes: Anicteric, normal conjunctiva, extraocular movements grossly intact Neck: Supple Respiratory: Scattered wheezes Cardiovascular: Regular rate GI: Soft, no rebound, guarding, rigidity, slightly protuberant Extremities: Trace lower extremity edema Musculoskeletal: Moving all extremities Neuro: No overt focal neurological deficits Skin: No rashes appreciated Psych: Cooperative overall Assessment & Plan Assessment/Plan (1) Sepsis: QUALIFIERS: Sepsis type: sepsis due to unspecified organism Sepsis acute organ dysfunction status: with acute organ dysfunction Severe sepsis acute organ dysfunction type: acute renal failure Acute renal failure type: unspecified Severe sepsis shock status: without septic shock Qualified Code(s): A41.9 - Sepsis, unspecified organism; R65.20 - Severe sepsis without septic shock; N17.9 - Acute kidney failure, unspecified (2) [place] (acute kidney injury): (3) Fever of unknown origin: PLAN: Plan # Septic shock secondary to enteric coccus UTI -Patient presented with [place], fever, leukopenia, thrombocytopenia -Patient started on IV Zosyn and given IV fluids and admitted to ICU -Patient required placement of a central line and levo, vaso, phenylephrine at max doses to maintain blood pressure -ID consulted -Patient COVID and respiratory virus negative -Respiratory culture, urine culture, blood cultures pending, no definitive source yet identified though patient has what appears to be a developing pneumonia in left lung that was not present on previous chest x-ray -CT abdomen and pelvis on admission not revealing of source -Given patient's clinical deterioration yesterday daptomycin was added -This a.m. pressor requirement is improving, remains on Levophed -Patient is chronically immunosuppressed, holding mycophenolate per nephrology recommendations at this time -Patient on stress dose steroids -05/21: Urine culture grew enteric coccus, infectious disease continued patient on Zosyn. Patient remains on stress dose steroids, weaning norepinephrine as able -05/22: Patient extubated, will switch over to p.o. midodrine and try to wean off levo post patient cleared to do so by speech. Has continued on Zosyn, overall significantly improved remains on stress dose steroids # Respiratory distress status post intubation?extubated 05/22 -Patient with respiratory distress overnight, ABG showed acidosis noted. Be secondary to metabolic acidosis which likely was causing patient to have altered breathing pattern in order to try to correct for his acidosis -He was intubated, remains in ICU on mechanical ventilation -ABG did show improvement of acidosis -05/21: Improving, may be able to be extubated soon, will be reevaluated tomorrow. On tube feeds present -05/22: Extubated, had some wheezing shortness of breath. Reports he has COPD and only uses rescue inhalers but used to be on something daily, patient given a breathing treatment and breathing treatments on as needed # Right lower extremity acute DVT/acute right subclavian DVT/chronic right IJ DVT/known factor V Leiden mutation -Patient found to have right lower extremity DVT was also noted to have thrombus in right IJ which was chronic and acute right subclavian DVT -Initially due to patient's low platelets and hemoglobin it was felt IVC filter may be most appropriate but given his significant stability this was unable to be performed yesterday -Today given patient's lab stability will be started on heparin drip so that this can be discontinued if any signs of bleeding -05/21: Hemoglobin 8 today, was 9.3 yesterday however 7.9 the day before so overall seems to be stabilized, platelets 72, yesterday 108 but the day before 76. No overt signs or symptoms of bleeding at this time. Patient on heparin drip -05/22: Hemoglobin stable thus far, will likely be able to transition to p.o. anticoagulation soon #[place] on CKD unclear subtype in setting of renal transplant x 2 -Creatinine appear to be trending up over time on outpatient basis but is acutely worsened -Likely secondary to septic shock and infection -Tacrolimus level still pending -Mycophenolate on hold due to infection -Treat underlying illness -Nephrology following -05/21: Creatinine appears to be beginning to stabilize with a creatinine of 4.04 today and 3.90 yesterday. Urine output is improving. CellCept is held due to active infection and tacrolimus level is pending. Continue to treat underlying infection, nephrology following -05/22: Kidney function somewhat improved today, restarted patient's tacrolimus, continue to hold his mycophenolate at this time, nephrology following. Today did have hypokalemia which will be replaced and BMP rechecked Chronic medical problems: # History of CAD status post CABG x 4 -Elevated troponin on admission, echo w/ no wallmotion abnormalities, felt to be d/t critical illness, no further w/u at this time -Patient on aspirin, statin held temporarily given potential interaction with daptomycin -05/21: Will resume atorvastatin now that patient off daptomycin # History of chronic heart failure with preserved ejection fraction -Monitor volume status, does not appear overloaded at present -Echocardiogram this admission showed EF of 50% and stage II diastolic dysfunction, no wall motion abnormalities noted -05/21: Urine output beginning to improve # History of neurogenic bladder -Patient status post Machado placement -05/21: Continue Machado catheter, urine output improving. Patient self caths at home so will likely continue Machado until discharge/post discharge # Lung nodule -CT of abdomen pelvis showed an ill-defined nodule in superior segment of right lower lobe that measured 7 mm -Follow-up in 6 months recommended # Pancytopenia -Unclear etiology, likely multifactorial -White blood cell count has recovered but patient remains anemic and thrombocytopenic -May need to follow with hematology on discharge if counts do not recover -05/21: Still anemic and thrombocytopenic but this appears to be stable #DVT ppx: heparin drip Lian Soler MD Time spent in the patient's overall evaluation,decision-making process, review of diagnostic data, adjustment of management, discussion with other providers, nursing nursing and ancillary staff involved in patient's care documentation, 35 Minutes Charges/Coding Visit Charges Inpatient E&M: 09670 Subs Hosp L2
--- NOTE | 2024-05-22 13:33 | PCM.PN.ID ---
Physical Exam Narrative Extubated, feeling better, no fever, no abd pain Const alert and no apparent distress General Appearance: cooperative Resp normal air movement and clear to auscultation bilaterally Cardio regular rate and regular rhythm GI soft to palpation, non-tender and non-distended Skin no rashes or lesions noted ID ID: Route of nutrition/ use of supplements: [] Nutritional Intake: [] IV Site: [] Machado Catheter: [] Assessment & Plan Assessment/Plan (1) [place] (acute kidney injury): (2) History of renal transplant: (3) Septic shock: PLAN: H/o renal transplant x2, most recent 2011 at . [place], leukopenia, and worsening of his chronic thrombocytopenia. Full resp pcr panel neg. Neph following. BP improved, now extubated. Ucx with enterococcus. EBV and CMV pcr neg, parvo neg. Cont empiric zosyn, plan on 7 day total course of abx. Will follow
[2024-05-22 13:45] LABS: Partial Thromboplast Time 46.9 Seconds (24.1-36.2)
[2024-05-22] MEDS: Heparin Injection (Vial) 5,000 UNIT/ML VIAL IV (14:25)
--- NOTE | 2024-05-22 15:20 | CASEMGMT ---
SDOH has been entered in error. Patient denies any needs. Luna Hopper TECHNICAL AIDE EVS MANAGER
[2024-05-22 15:51] LABS: Magnesium 2.6 mg/dL (1.6-2.6)
[2024-05-22 16:56] LABS: Anion Gap 7 (5-15); BUN 76 mg/dL (7-18); BUN/Creat Ratio 22.8 RATIO (10-20); Calcium,Total 8.4 mg/dL (8.5-10.1); Chloride 105 mmol/L (98-107); Creatinine, Serum 3.33 mg/dL (0.70-1.30); EST Glomerular Filtration Rate 21 mL/min (>60); Est Glom Filt Rate - Afr Amer 25 mL/min (>60); Glucose 142 mg/dL (74-106); Potassium 3.6 mmol/L (3.5-5.1); Sodium Level 141 mmol/L (136-145)
[2024-05-22] MEDS: Dicyclomine 10 MG Capsule 20 MG PO (18:47)
[2024-05-22] MEDS: Lactobacillis Acidophilus 1 CAP PO (20:31)
[2024-05-22] MEDS: Atorvastatin Calcium 40 MG Tablet PO (20:32)
[2024-05-22 21:37] LABS: Partial Thromboplast Time 55.3 Seconds (24.1-36.2)
[2024-05-23] VITALS (27 sets, daily range): BP systolic 112–167; BP diastolic 56–81; PULSE 37–83; RESP 11–21; TEMP 36.2–36.6; O2SAT 94–100
[2024-05-23] MEDS: Hydrocortisone Sod Succinate 100 MG/2 ML Vial 50 MG IV ×4 (00:53→22:08)
[2024-05-23] MEDS: Ondansetron 4 MG/2 ML Vial IV (01:10)
[2024-05-23] MEDS: Dicyclomine 10 MG Capsule 20 MG PO (01:52)
[2024-05-23] MEDS: proMETHazine 25 MG/ML Syringe 12.5 MG IM (03:06)
[2024-05-23] MEDS: HEPARIN/D5w 25,000 UNITS 25,000 UNITS/250 ML IV.SOLN. 9 UNITS CONT INF (03:36)
[2024-05-23 05:30] LABS: Hematocrit 27.1 % (40-54); Hemoglobin 8.2 g/dL (13.0-16.5); Mean Corp Hgb Conc 30.3 g/dL (32-36); Mean Corpuscular Hgb 28.2 pg (27.0-32.0); Mean Corpuscular Volume 93.1 fL (80-94); Mean Platelet Vol. 12.1 fl (6.2-12.0); POSITIVE COUNT YES; POSITIVE DIFFERENTIAL YES; POSITIVE MORPHOLOGY YES; Platelet Count 63 K/mm3 (150-450); RBC Distribution Width CV 14.1 % (11.6-14.6); Red Blood Count 2.91 M/mm3 (4.6-6.2); White Blood Count 13.7 K/mm3 (4.4-11.0)
[2024-05-23 05:40] LABS: Partial Thromboplast Time 51.3 Seconds (24.1-36.2)
[2024-05-23 05:45] LABS: Anion Gap 9 (5-15); BUN 76 mg/dL (7-18); BUN/Creat Ratio 26.6 RATIO (10-20); Calcium,Total 9.1 mg/dL (8.5-10.1); Chloride 105 mmol/L (98-107); Creatinine, Serum 2.86 mg/dL (0.70-1.30); EST Glomerular Filtration Rate 25 mL/min (>60); Est Glom Filt Rate - Afr Amer 30 mL/min (>60); Estimated Creatinine Clearance 25.39 ml/min; Glucose 126 mg/dL (74-106); Potassium 3.5 mmol/L (3.5-5.1); Sodium Level 142 mmol/L (136-145)
[2024-05-23] MEDS: Menthol/Lanolin/Calamine/Znox 113 GM Tube 1 APPLIC TOPICAL ×3 (06:10→19:47)
[2024-05-23] MEDS: Piperacil/Tazobactam 3.375 GM in 0.9% Normal Saline (50mL MB+) 50 ML IV ×2 (06:11→17:53)
[2024-05-23] MEDS: Heparin Injection (Vial) 5,000 UNIT/ML VIAL IV ×2 (06:13→19:28)
[2024-05-23 07:03] LABS: Differential Indicated MANUAL DIFF
[2024-05-23 07:06] LABS: Eosinophil 1 % (0-5); Lymphocyte 4 % (19-41); Monocyte 2 % (0-10); Neutrophil-Band 7 % (0-5); Neutrophil-Segmented 86 % (47-70); Platelet Estimate MOD DEC (ADEQ); Total Cells Counted 100 (MANUAL DIFF)
[2024-05-23 07:07] LABS: Anisocytosis 3+; Ovalocyte 2+; Toxic Granulation 1+
[2024-05-23 07:08] LABS: Acanthocytes 2+
[2024-05-23 07:10] LABS: Absolute Lymphocyte Count 0.55 X10^3/uL (0.83-4.51); Absolute Neutrophil Count 12.7 X10^3/uL (2.0-7.7)
[2024-05-23] MEDS: Pantoprazole Sodium 40 MG in 0.9% Normal Saline (100mL MB+) 100 ML 330 MG IV ×2 (07:51→19:47)
[2024-05-23] MEDS: Lactobacillis Acidophilus 1 CAP PO ×2 (07:55→22:08)
[2024-05-23] MEDS: CHLORHEXIDINE GLUC 2% CLOTH 1 EACH TOWELETTE TOPICAL (07:56)
[2024-05-23] MEDS: TACROLIMUS 1 MG PO (07:56)
[2024-05-23] MEDS: Aspirin 81 MG TAB.CHEW PO (07:56)
[2024-05-23] MEDS: Ferrous Sulfate 325 MG Tablet PO (07:56)
--- NOTE | 2024-05-23 09:44 | PN.CC_ITS ---
Objective Data Objective Data Vital Signs: Vital Signs Last response 3 Temperature 36.2 C L 05/23/24 00:00 Temperature Source Temporal 05/23/24 00:00 Pulse Rate 71 05/23/24 08:00 Pulse Strength Normal (2+) 05/22/24 22:00 Respiratory Rate 15 05/23/24 08:00 Respiratory Effort Normal, Non-Labored 05/23/24 04:00 Respiratory Depth Normal 05/23/24 04:00 Respiratory Pattern Normal 05/23/24 04:00 Blood Pressure 146/68 H 05/23/24 08:00 Blood Pressure Mean 94 05/23/24 08:00 Blood Pressure Source Arterial Line 05/23/24 08:00 Blood Pressure Position Semi-Fowlers 05/23/24 06:00 Blood Pressure Location Left Arm 05/21/24 12:00 Pulse Ox 99 05/23/24 08:00 Oxygen Delivery Method Nasal Cannula 05/23/24 08:00 Oxygen Flow Rate (L/min) 2 05/23/24 08:00 Fraction of Inspired Oxygen (FIO2) 25 05/22/24 04:00 CLA-BSI maintained Yes 05/23/24 06:00 I&O: I&O Last 24 Hours 3 05/22/24 05/22/24 05/23/24 11:59 23:59 11:59 Intake Total 1810.6 / 2940.41 1129.81 / 2940.41 1131.6 / 1131.6 Output Total 350 / 1500 950 / 1500 1000 / 1000 Balance 1460.6 / 1440.41 179.81 / 1440.41 131.6 / 131.6 I&O: Total Stay 3 05/18/24 20:07 thru 05/23/24 08:16 Intake Total 61470.60 Output Total 6930 Balance 18095.60 Current Meds Ordered / Administered: Current meds ordered / Administered 3 Generic Name Dose Route Start Last Admin Trade Name Freq PRN Reason Stop Dose Admin Acetaminophen 650 mg 05/22/24 10:49 Acetaminophen 325 Mg Tablet PO Q8H PRN Pain 1-10 or Fever Albuterol Sulfate 2.5 mg 05/19/24 03:35 Albuterol 2.5 Mg/3 Ml Vial.Neb. INHALATION Q4H PRN PRN Shortness Of Breath Albuterol/Ipratropium 3 ml 05/19/24 03:31 05/22/24 09:18 Ipratropium/Albuterol Sulfate 3 Ml Ampul.Neb INHALATION 3 ml Q6H PRN PRN Administration wheezing Aspirin 81 mg 05/23/24 08:00 05/23/24 07:56 Aspirin 81 Mg Tab.Chew PO 81 mg DAILYCM MARY ELLEN Administration Atorvastatin Calcium 40 mg 05/21/24 22:00 05/22/24 20:32 Atorvastatin Calcium 40 Mg Tablet PO 40 mg QHS MARY ELLEN Administration Calamine/Phenol 1 applic 05/22/24 14:00 05/23/24 06:10 Menthol/Lanolin/Calamine/Znox 113 Gm Tube TOPICAL 1 applic TID MARY ELLEN Administration Protocol Chlorhexidine Gluconate 1 each 05/21/24 10:00 05/23/24 07:56 Chlorhexidine Gluc 2% Cloth 1 Each Towelette TOPICAL 1 each DAILY MARY ELLEN Administration Dicyclomine HCl 20 mg 05/22/24 17:55 05/23/24 01:52 Dicyclomine 10 Mg Capsule PO 20 mg 4X/DAY PRN Administration Cramp Ferrous Sulfate 325 mg 05/23/24 08:00 05/23/24 07:56 Ferrous Sulfate 325 Mg Tablet PO 325 mg DAILYCM MARY ELLEN Administration Heparin Sodium (Porcine) 0 unit 05/20/24 09:00 05/23/24 06:13 Heparin Injection (Vial) 5,000 Unit/Ml Vial IV 1,000 unit UD PRN Administration dose adjustment Protocol Hydrocortisone Sodium Succinate 50 mg 05/23/24 14:00 Hydrocortisone Sod Succinate 100 Mg/2 Ml Vial IV Q8 MARY ELLEN Sodium Chloride 250 mls @ 15 mls/hr 05/19/24 03:36 05/22/24 20:32 IV Infused .[id number] PRN Infusion Additional IVPB Infusion Sodium Chloride 250 mls @ 15 mls/hr 05/19/24 03:36 05/19/24 16:31 IV Infused .[id number] PRN Infusion Saline Flush Piperacillin Sod/Tazobactam 50 mls @ 12.5 mls/hr 05/19/24 18:00 05/23/24 06:11 Sod 3.375 gm/ Sodium Chloride IV 12.5 mls/hr Q12H MARY ELLEN Administration Pantoprazole Sodium 40 mg/ 110 mls @ 330 mls/hr 05/19/24 10:10 05/23/24 08:11 Sodium Chloride IV Infused Q12 MARY ELLEN Infusion Heparin Sodium/Dextrose 25,000 units in 250 mls @ 10 mls/hr 05/20/24 09:00 05/23/24 06:00 CONT INF 1,000 units/hr .Q25H MARY ELLEN 10 mls/hr Titration Protocol As Directed Ondansetron HCl 4 mg 05/19/24 03:53 05/23/24 01:10 Ondansetron 4 Mg/2 Ml Vial IV 4 mg Q6H PRN PRN Administration NAUSEA/VOMITING Promethazine HCl 12.5 mg 05/19/24 04:43 05/23/24 03:06 Promethazine 25 Mg/Ml Syringe IM 12.5 mg Q6H PRN PRN Administration NAUSEA/VOMITING Scopolamine HBr 1 patch 05/19/24 04:45 05/22/24 05:27 Scopolamine 1mg/72hr Patch TD 1 patch Q3D MARY ELLEN Administration Sodium Chloride 10 - 40 ml 05/19/24 03:36 05/20/24 00:56 0.9% Saline Lock 10 Ml Syringe IV 40 ml UD PRN Administration SALINE FLUSH Tacrolimus 1 mg 05/22/24 14:00 05/23/24 07:56 Tacrolimus 1 Mg Cap.Er.24h PO 1 mg DAILY MARY ELLEN Administration Lab / Micro Data Attestation: I reviewed the patient's lab results. 05/23/24 05:10 05/23/24 05:10 Labs: Laboratory Results - last 24 hr 05/22/24 04:50: Magnesium 2.6 05/22/24 13:20: APTT 46.9 H 05/22/24 16:10: Sodium 141, Potassium 3.6, Chloride 105, Carbon Dioxide 29.0, Anion Gap 7, BUN 76 H, Creatinine 3.33 H, Estim Creat Clear Calc 21.80, Est GFR (MDRD) Af Amer 25 L, Est GFR (MDRD) Non-Af 21 L, BUN/Creatinine Ratio 22.8 H, G lucose 142 H, Calcium 8.4 L 05/22/24 21:00: APTT 55.3 H 05/23/24 05:10: WBC 13.7 H, RBC 2.91 L, Hgb 8.2 L, Hct 27.1 L, MCV 93.1, MCH 28.2, MCHC 30.3 L, RDW Std Deviation 48.0 H, RDW Coeff of Adamaris 14.1, Plt Count 63 L, MPV 12.1 H, Neut % (Auto) Not Reportable, Absolute Neuts (auto) 12.7 H, A bsolute Lymphs (auto) 0.55 L, Total Counted 100, Neutrophils % (Manual) 86 H, B and Neutrophils % 7 H, Lymphocytes % (Manual) 4 L, Monocytes % (Manual) 2, Eosinophils % (Manual) 1, Toxic Granulation 1+, Platelet Estimate MOD DEC, Anisocytosis 3+, Ovalocytes 2+, Acanthocytes (Spur) 2+, APTT 51.3 H, Sodium 142, Potassium 3.5, Chloride 105, Carbon Dioxide 28.0, Anion Gap 9, BUN 76 H, C reatinine 2.86 H, Estim Creat Clear Calc 25.39, Est GFR (MDRD) Af Amer 30 L, Est GFR (MDRD) Non-Af 25 L, BUN/Creatinine Ratio 26.6 H, Glucose 126 H, Calcium 9.1 Micro: Microbiology 05/20/24 00:23 Sputum, Induced/Lukens Gram Stain - Final 05/20/24 00:23 Sputum, Induced/Lukens Respiratory Culture - Final Assessment and Plan . Assessment and plan: IMPRESSIONS: 1. Septic shock secondary to Enterococcus UTI The patient presented to the hospital with generalized malaise, fevers and chills. The patient is chronically immunosuppressed due to a history of renal transplantation. Urine culture is demonstrating growth of pansensitive Enterococcus. Accordingly, we will plan to continue antimicrobials under the discretion of infectious diseases. The patient's baseline immunosuppressive therapy is on hold. The patient will be continued on vasopressor support to maintain a mean arterial pressure at or above 65 mmHg, along with stress dose steroids. 2. Acute hypoxemic respiratory failure The patient was ultimately intubated on May 20 due to increased work of breathing in the setting of worsening metabolic acidosis. His acid-base status has improved with invasive mechanical ventilatory support. The patient's renal function is now improving. He passed a spontaneous breathing trial this morning and was able to be extubated. Will plan to continue supplemental oxygen to maintain saturations at or above 90%. 3. Acute on chronic kidney disease Clinical concern for prerenal etiology in the setting of #1. The patient is immunosuppressed at baseline without any missed doses, according to . Nephrology is following to assist with medical management. Renal function is now beginning to improve. 4. 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 Repeat lower extremity Doppler study did reveal an acute DVT in the right common femoral vein. I do suspect that the patient is at high risk for PE as well. However, given his underlying renal insufficiency, CTA chest is not able to be completed. In light of the aforementioned, the patient was placed on a weight-based heparin infusion, despite his baseline anemia and thrombocytopenia. If the patient bleeds or develops worsening anemia, will discontinue heparin and proceed with IVC filter placement. 5. Chronic anemia and thrombocytopenia Continue to monitor blood counts and transfuse if hemoglobin drops below 7 g/dL. Continue PPI therapy as ordered. 6. History of coronary artery disease status post CABG/peripheral vascular disease/hypertension/hyperlipidemia/history of tobacco dependency Complicates care, management, recovery and prognosis. Continue to hold home antihypertensives. Physical therapy to continue to work with the patient. RECOMMENDATIONS: 1. Wean supplemental oxygen to maintain saturations at or above 90%. 2. Wean Levophed to maintain a mean arterial pressure at or above 65 mmHg. 3. Antimicrobials per ID recommendations. 4. Continue stress dose steroids. 7. following Hb- transfuse if hemoglobin drops below 7 g/dL. Continue PPI therapy as ordered. 8. Continue weight-based heparin infusion. If the patient were to bleed or develop worsening anemia, IVC filter can be placed. Critical Care Time: 50 minutes The entirety of this encounter was done via Telemedicine Physical Exam Const alert and no apparent distress General Appearance: cooperative HEENT normocephalic Mouth: oral and palatal mucosa normal Neck no lymphadenopathy and no JVD Resp Auscultation: diminished lung sounds Cardio regular rate GI soft to palpation Subjective Subjective Looks good post-extubation yesterday, denies new complaints but states he occasionally feels nervous about his breathing
[2024-05-23 12:33] LABS: Partial Thromboplast Time 72.4 Seconds (24.1-36.2)
--- NOTE | 2024-05-23 13:18 | PN.HOSP_ITS ---
Reason for Visit Reason for Visit: Diagnoses Sepsis, unspecified organism (05/19/24) Disorder involving the immune mechanism, unspecified (05/19/24) Acute embolism and thrombosis of unspecified deep veins of unspecified lower extremity (05/19/24) Acute kidney failure, unspecified (05/19/24) Fever, unspecified (05/19/24) Severe sepsis without septic shock (05/19/24) Severe sepsis with septic shock (05/19/24) Kidney transplant status (05/19/24) Subjective Subjective Feeling better today than yesterday, continues to improve, now off Levophed, midodrine discontinued, breathing better with breathing treatments Objective Data Objective Data Vital Signs: Vital Signs Temp Pulse Resp BP Pulse Ox O2 Del Method O2 Flow Rate 97.9 F 83 13 153/74 H 99 Nasal Cannula 2 05/23/24 12:00 05/23/24 12:00 05/23/24 12:00 05/23/24 12:00 05/23/24 12:00 05/23/24 12:00 05/23/24 12:00 FiO2 25 05/22/24 04:00 Oxygen Flow Rate (L/min) 2 Oxygen Delivery Method Nasal Cannula Weight: 69.9 kg Body Mass Index (BMI) 25.6 Intake & Output: Intake and Output for Last 24 Hours 05/21/24 05/22/24 05/23/24 23:59 23:59 23:59 Intake Total 3331.98 / 3336.98 2940.41 / 2940.41 1541.6 / 1541.6 Output Total 2475 / 2475 1300 / 1500 1400 / 1400 Balance 856.98 / 861.98 1640.41 / 1440.41 141.6 / 141.6 Lab / Micro Data 05/23/24 05:10 05/23/24 05:10 Labs: Laboratory Results - last 24 hr 05/22/24 04:50: Magnesium 2.6 05/22/24 13:20: APTT 46.9 H 05/22/24 16:10: Sodium 141, Potassium 3.6, Chloride 105, Carbon Dioxide 29.0, Anion Gap 7, BUN 76 H, Creatinine 3.33 H, Estim Creat Clear Calc 21.80, Est GFR (MDRD) Af Amer 25 L, Est GFR (MDRD) Non-Af 21 L, BUN/Creatinine Ratio 22.8 H, G lucose 142 H, Calcium 8.4 L 05/22/24 21:00: APTT 55.3 H 05/23/24 05:10: WBC 13.7 H, RBC 2.91 L, Hgb 8.2 L, Hct 27.1 L, MCV 93.1, MCH 28.2, MCHC 30.3 L, RDW Std Deviation 48.0 H, RDW Coeff of Adamaris 14.1, Plt Count 63 L, MPV 12.1 H, Neut % (Auto) Not Reportable, Absolute Neuts (auto) 12.7 H, A bsolute Lymphs (auto) 0.55 L, Total Counted 100, Neutrophils % (Manual) 86 H, B and Neutrophils % 7 H, Lymphocytes % (Manual) 4 L, Monocytes % (Manual) 2, Eosinophils % (Manual) 1, Toxic Granulation 1+, Platelet Estimate MOD DEC, Anisocytosis 3+, Ovalocytes 2+, Acanthocytes (Spur) 2+, APTT 51.3 H, Sodium 142, Potassium 3.5, Chloride 105, Carbon Dioxide 28.0, Anion Gap 9, BUN 76 H, C reatinine 2.86 H, Estim Creat Clear Calc 25.39, Est GFR (MDRD) Af Amer 30 L, Est GFR (MDRD) Non-Af 25 L, BUN/Creatinine Ratio 26.6 H, Glucose 126 H, Calcium 9.1 05/23/24 12:09: APTT 72.4 H Micro: Microbiology 05/20/24 00:23 Sputum, Induced/Lukens Gram Stain - Final 05/20/24 00:23 Sputum, Induced/Lukens Respiratory Culture - Final 05/18/24 23:55 Urine, Clean Catch Urine Culture - Final Enterococcus faecalis 05/18/24 22:27 Blood Culture (Wb) - Anticubital Right Blood Culture - Preliminary No growth in 48 hours. 05/19/24 07:10 Mucosa - Nasopharyngeal Respiratory Panel (PCR) - Final 05/18/24 22:37 Mucosa - Nose SARS-CoV-2, Influenza & RSV (PCR) - Final Physical Exam Narrative General: Alert, oriented HEENT: Atraumatic, normocephalic Eyes: Anicteric, normal conjunctiva, extraocular movements grossly intact Neck: Supple Respiratory: Sounds improving Cardiovascular: Regular rate GI: Soft, no rebound, guarding, rigidit Extremities: Trace lower extremity edema Musculoskeletal: Moving all extremities Neuro: No overt focal neurological deficits Skin: No rashes appreciated Psych: Cooperative Assessment & Plan Assessment/Plan (1) Sepsis: QUALIFIERS: Sepsis type: sepsis due to unspecified organism S epsis acute organ dysfunction status: with acute organ dysfunction Severe sepsis acute organ dysfunction type: acute renal failure Acute renal failure type: unspecified Severe sepsis shock status: without septic shock Qualified Code(s): A41.9 - Sepsis, unspecified organism; R65.20 - Severe sepsis without septic shock; N17.9 - Acute kidney failure, unspecified (2) [place] (acute kidney injury): (3) Fever of unknown origin: PLAN: Plan # Septic shock secondary to enteric coccus UTI -Patient presented with [place], fever, leukopenia, thrombocytopenia -Patient started on IV Zosyn and given IV fluids and admitted to ICU -Patient required placement of a central line and levo, vaso, phenylephrine at max doses to maintain blood pressure -ID consulted -Patient COVID and respiratory virus negative -Respiratory culture, urine culture, blood cultures pending, no definitive source yet identified though patient has what appears to be a developing pneumonia in left lung that was not present on previous chest x-ray -CT abdomen and pelvis on admission not revealing of source -Given patient's clinical deterioration yesterday daptomycin was added -This a.m. pressor requirement is improving, remains on Levophed -Patient is chronically immunosuppressed, holding mycophenolate per nephrology recommendations at this time -Patient on stress dose steroids -05/21: Urine culture grew enteric coccus, infectious disease continued patient on Zosyn. Patient remains on stress dose steroids, weaning norepinephrine as able -05/22: Patient extubated, will switch over to p.o. midodrine and try to wean off levo post patient cleared to do so by speech. Has continued on Zosyn, overall significantly improved remains on stress dose steroids -05/23: Shock resolved, weaning stress dose steroids, continue Zosyn for total of 7 days of antibiotics, significantly improving # Respiratory distress status post intubation?extubated 05/22 -Patient with respiratory distress overnight, ABG showed acidosis noted. Be secondary to metabolic acidosis which likely was causing patient to have altered breathing pattern in order to try to correct for his acidosis -He was intubated, remains in ICU on mechanical ventilation -ABG did show improvement of acidosis -05/21: Improving, may be able to be extubated soon, will be reevaluated tomorrow. On tube feeds present -05/22: Extubated, had some wheezing shortness of breath. Reports he has COPD and only uses rescue inhalers but used to be on something daily, patient given a breathing treatment and breathing treatments on as needed -05/23: Extubated, no further respiratory distress, nebs as needed # Right lower extremity acute DVT/acute right subclavian DVT/chronic right IJ DVT/known factor V Leiden mutation -Patient found to have right lower extremity DVT was also noted to have thrombus in right IJ which was chronic and acute right subclavian DVT -Initially due to patient's low platelets and hemoglobin it was felt IVC filter may be most appropriate but given his significant stability this was unable to be performed yesterday -Today given patient's lab stability will be started on heparin drip so that this can be discontinued if any signs of bleeding -05/21: Hemoglobin 8 today, was 9.3 yesterday however 7.9 the day before so overall seems to be stabilized, platelets 72, yesterday 108 but the day before 76. No overt signs or symptoms of bleeding at this time. Patient on heparin drip -05/22: Hemoglobin stable thus far, will likely be able to transition to p.o. anticoagulation soon -05/23: Transition to p.o. in next 1 to 2 days if hemoglobin stable to prepare from patient is discharged #[place]O on CKD unclear subtype in setting of renal transplant x 2 -Creatinine appear to be trending up over time on outpatient basis but is acutely worsened -Likely secondary to septic shock and infection -Tacrolimus level still pending -Mycophenolate on hold due to infection -Treat underlying illness -Nephrology following -05/21: Creatinine appears to be beginning to stabilize with a creatinine of 4.04 today and 3.90 yesterday. Urine output is improving. CellCept is held due to active infection and tacrolimus level is pending. Continue to treat underlying infection, nephrology following -05/22: Kidney function somewhat improved today, restarted patient's tacrolimus, continue to hold his mycophenolate at this time, nephrology following. Today did have hypokalemia which will be replaced and BMP rechecked -05/23: Continues to improve, will need to assess optimal timing to resume mycophenolate, suspect it will be after antibiotics completed Chronic medical problems: # History of CAD status post CABG x 4 -Elevated troponin on admission, echo w/ no wallmotion abnormalities, felt to be d/t critical illness, no further w/u at this time -Patient on aspirin, statin held temporarily given potential interaction with daptomycin -05/21: Will resume atorvastatin now that patient off daptomycin # History of chronic heart failure with preserved ejection fraction -Monitor volume status, does not appear overloaded at present -Echocardiogram this admission showed EF of 50% and stage II diastolic dysfunction, no wall motion abnormalities noted -05/21: Urine output beginning to improve # History of neurogenic bladder -Patient status post Machado placement -05/21: Continue Machado catheter, urine output improving. Patient self caths at home so will likely continue Machado until discharge/post discharge # Lung nodule -CT of abdomen pelvis showed an ill-defined nodule in superior segment of right lower lobe that measured 7 mm -Follow-up in 6 months recommended # Pancytopenia -Unclear etiology, likely multifactorial -White blood cell count has recovered but patient remains anemic and thrombocytopenic -May need to follow with hematology on discharge if counts do not recover -05/21: Still anemic and thrombocytopenic but this appears to be stable #DVT ppx: heparin drip Lian Soler MD Time spent in the patient's overall evaluation,decision-making process, review of diagnostic data, adjustment of management, discussion with other providers, nursing nursing and ancillary staff involved in patient's care documentation, 36 Minutes Charges/Coding Visit Charges Inpatient E&M: 37351 Subs Hosp L2
[2024-05-23] MEDS: 0.9% Saline Lock 10 ML Syringe IV (14:39)
[2024-05-23 19:02] LABS: Partial Thromboplast Time 53.1 Seconds (24.1-36.2)
[2024-05-23] MEDS: Atorvastatin Calcium 40 MG Tablet PO (22:08)
[2024-05-24] VITALS (15 sets, daily range): BP systolic 134–170; BP diastolic 61–96; PULSE 44–100; RESP 15–21; TEMP 36.3–36.9; O2SAT 93–100; BMI 25.7
--- NOTE | 2024-05-24 05:26 | EKG12_ITS ---
Test Reason : Blood Pressure : / mmHG Vent. Rate : 076 BPM Atrial Rate : 064 BPM P-R Int : 144 ms QRS Dur : 158 ms QT Int : 432 ms P-R-T Axes : 042 -64 075 degrees QTc Int : 486 ms Sinus rhythm with Premature atrial complexes with Aberrant conduction Right bundle branch block Left anterior fascicular block Bifascicular block Abnormal ECG When compared with ECG of 24-MAY-2024 05:26, MANUAL COMPARISON REQUIRED, DATA IS UNCONFIRMED Confirmed by KYRA BURT, JOESPH ([id number]), newspaper copy editor EDSON PEREIRA ([id number]) on 05/29/2024 10:00:45 A M Referred By: DURHAM Confirmed By:PA RAE MD
--- NOTE | 2024-05-24 05:27 | EKG12_ITS ---
Test Reason : Blood Pressure : / mmHG Vent. Rate : 090 BPM Atrial Rate : 000 BPM P-R Int : 000 ms QRS Dur : 160 ms QT Int : 442 ms P-R-T Axes : 000 -63 076 degrees QTc Int : 540 ms Sinus rhythm with PAC's Right bundle branch block Left anterior fascicular block Bifascicular block T wave abnormality, consider lateral ischemia Abnormal ECG When compared with ECG of 26-APR-2024 16:30, Significant changes have occurred Confirmed by KYRA BURT, JOESPH ([id number]), supervising editor trailer EDSON PEREIRA ([id number]) on 05/29/2024 10:00:36 A M Referred By: DURHAM Confirmed By:PA RAE MD
[2024-05-24] MEDS: Piperacil/Tazobactam 3.375 GM in 0.9% Normal Saline (50mL MB+) 50 ML IV (05:49)
[2024-05-24] MEDS: Hydrocortisone Sod Succinate 100 MG/2 ML Vial 50 MG IV (05:49)
[2024-05-24] MEDS: HEPARIN/D5w 25,000 UNITS 25,000 UNITS/250 ML IV.SOLN. 9 UNITS CONT INF (06:09)
[2024-05-24 06:11] LABS: Absolute Lymphocyte Count 0.42 X10^3/uL (0.83-4.51); Absolute Neutrophil Count 9.1 X10^3/uL (2.0-7.7); Basophil# 0.01 X10^3/uL; Basophil% 0.1 % (0-1); Hematocrit 25.6 % (40-54); Hemoglobin 7.7 g/dL (13.0-16.5); Lymphocyte # 0.42 X10^3/ul (0.83-4.51); Lymphocyte % 4.1 % (19-41); Mean Corp Hgb Conc 30.1 g/dL (32-36); Mean Corpuscular Hgb 28.5 pg (27.0-32.0); Mean Corpuscular Volume 94.8 fL (80-94); Mean Platelet Vol. 12.1 fl (6.2-12.0); Monocyte# 0.78 X10^3/uL; Monocyte% 7.5 % (0-10); NRBC Flagged by Analyzer 0 % (0-5); Neutrophil # 9.05 X10^3/uL (2.7-7.7); Neutrophil % 87.4 % (47-70); POSITIVE COUNT YES; POSITIVE DIFFERENTIAL YES; POSITIVE MORPHOLOGY YES; Platelet Count 71 K/mm3 (150-450); RBC Distribution Width CV 13.7 % (11.6-14.6); RBC Distribution Width SD 46.9 fl (35.1-43.9); White Blood Count 10.4 K/mm3 (4.4-11.0)
[2024-05-24 06:12] LABS: Differential Indicated SCAN CRITERIA MET
[2024-05-24 06:29] LABS: Anion Gap 7 (5-15); BUN 77 mg/dL (7-18); BUN/Creat Ratio 29.1 RATIO (10-20); Calcium,Total 9.3 mg/dL (8.5-10.1); Chloride 105 mmol/L (98-107); Creatinine, Serum 2.65 mg/dL (0.70-1.30); EST Glomerular Filtration Rate 27 mL/min (>60); Est Glom Filt Rate - Afr Amer 32 mL/min (>60); Glucose 150 mg/dL (74-106); Potassium 3.4 mmol/L (3.5-5.1); Sodium Level 141 mmol/L (136-145)
[2024-05-24 06:36] LABS: Troponin-I HS 1780 pg/mL (3.0-78.0)
[2024-05-24 06:40] LABS: Differential Comment SCANNED
[2024-05-24 06:41] LABS: Burr Cells 1+; Platelet Estimate SLT DEC (ADEQ)
[2024-05-24] MEDS: Aspirin 81 MG TAB.CHEW PO (06:53)
[2024-05-24] MEDS: Clopidogrel Bisulfate 75 MG Tablet PO (06:54)
[2024-05-24] MEDS: Morphine 2 MG/ML Syringe IV ×3 (06:54→11:32)
[2024-05-24] MEDS: 0.9% Saline Lock 10 ML Syringe IV ×2 (07:40→11:33)
[2024-05-24] MEDS: 0.9% Normal Saline (250mL Bag) 250 ML 15 ML IV (07:43)
[2024-05-24] MEDS: Carvedilol 12.5 MG Tablet PO (08:19)
[2024-05-24] MEDS: Ferrous Sulfate 325 MG Tablet PO (08:20)
[2024-05-24] MEDS: TACROLIMUS 1 MG PO (08:20)
[2024-05-24] MEDS: Lactobacillis Acidophilus 1 CAP PO (08:21)
[2024-05-24] MEDS: Pantoprazole Sodium 40 MG in 0.9% Normal Saline (100mL MB+) 100 ML 330 MG IV (08:23)
[2024-05-24] MEDS: CHLORHEXIDINE GLUC 2% CLOTH 1 EACH TOWELETTE TOPICAL (08:25)
[2024-05-24] MEDS: Ondansetron 4 MG/2 ML Vial IV (08:30)
[2024-05-24 08:55] LABS: Partial Thromboplast Time 57.9 Seconds (24.1-36.2)
[2024-05-24 09:05] LABS: Troponin-I HS 1590 pg/mL (3.0-78.0)
--- NOTE | 2024-05-24 09:31 | PCM.CONS.C ---
Assessment & Plan Assessment/Plan (1) History of renal transplant: PLAN: Patient is status post renal transplant 1991 and again in 2009. The patient has had episodes of acute renal insufficiency and acute renal failure during this past year. His creatinine was as high as 3.23 in November 2023 when he was admitted. It has improved since admission this admission. The patient is immunosuppressive therapy has been on hold due to his sepsis he is on stress dose steroids. We are trying to arrange for transfer to his transplant center at [facility]. The patient is concerned that he may be rejecting his transplant as he had a similar episode at the time of his rejection in 1991. (2) Sepsis: QUALIFIERS: Sepsis type: sepsis due to unspecified organism Sepsis acute organ dysfunction status: with acute organ dysfunction Severe sepsis acute organ dysfunction type: acute renal failure Acute renal failure type: unspecified Severe sepsis shock status: without septic shock Qualified Code(s): A41.9 - Sepsis, unspecified organism; R65.20 - Severe sepsis without septic shock; N17.9 - Acute kidney failure, unspecified PLAN: The patient has been diagnosed with urosepsis which is being treated with IV antibiotics by the ICU and hospitalist teams. (3) Abnormal EKG: PLAN: Patient is EKG shows his chronic right bundle branch block with left anterior fascicular block he has occasional PACs and some minor T wave changes compared to a April 2024 EKG. There is no evidence of ST segment elevation. (4) Troponin I above reference range: PLAN: The patient's troponins of 1780 have decreased down to 1590 on the second set. He has had intermittent chest discomfort. His EKG is not consistent with a STEMI but there are minor T wave changes. The patient has a known chronically occluded right coronary artery with collateral flow from the left side. He has also been anemic during this hospitalization with hemoglobin in the 7.7 range. He has also been transiently hypotensive with septic shock on initial presentation and he has acute renal insufficiency on top of his chronic renal failure with his transplant. All of these could combined to create a demand type ischemic event. At this point in time I do not feel the patient should undergo attempted left heart catheterization as he has very limited access to his central circulation. He also is infected and placing a stent at this point in time and his coronary anatomy would be increasing the risk of potential infection. Given the fact his pain is resolved intermittently with controlling his blood pressure and heart rate with Coreg I feel that we should continue to treat this medically. The patient reports in his home environment he routinely has discomfort in his chest when he overexerts himself. This is consistent with his historical stable angina. Last catheterization was 2020 which revealed patent ROBERT to the LAD patent saphenous vein graft to 2 different OM branches and a chronically occluded right coronary artery with [id number] collaterals. Most recent echo May 19, 2024 showed an EF of 50% with mild LVH and no significant regional wall motion abnormality. This was at the time of hypotension and sepsis. His prior echo in November 2023 EF was 65% with stage II diastolic dysfunction. The patient is on a combination of aspirin and clopidogrel since his admission. He is also been on IV heparin due to DVT of his right lower extremity. He has been intermittently treated with IV Lopressor for chest discomfort and heart rate control. (5) Hypertension: QUALIFIERS: Hypertension type: essential hypertension Qualified Code(s): I10 - Essential (primary) hypertension PLAN: Patient historically has been hypertensive controlled with a combination of Coreg and amlodipine. He was hypotensive upon admission and after aggressive treatment for his sepsis his blood pressure is now resolved and we reinstituted his Coreg. His blood pressure is now coming down and his heart rate is much improved after oral administration of his Coreg. (6) Hypercholesterolemia: PLAN: Patient has a history of hyperlipidemia he has been on atorvastatin his home environment at 80 mg daily. (7) PVD (peripheral vascular disease): PLAN: Patient has extensive peripheral vascular disease with multiple failed AV fistulas in both upper extremities. He has an occluded right iliac status post right to left femorofemoral bypass 2017. The left groin was last used in 2020 to access his central circulation for a left heart catheterization at [facility]. PLAN: Plan 1. Continue control the patient's heart rate and blood pressure with oral therapy. He has been started on Coreg 12.5 mg twice daily which can be titrated to blood pressure and heart rate response. 2. Supplement with IV Lopressor as needed for chest discomfort and heart rate control. 3. Utilize sublingual nitro as needed. The patient has been intolerant to Nitropaste and IV nitroglycerin in the past due to severe headaches. 4. Will work to arrange for transfer to [facility] for more intensive care given his complicated multisystem organ issues in the face of 2 previous renal transplants. 5. Please call me if further assistance is needed. 6. I did discuss the case in detail with the hospitalist Dr. Finley and she and I both were on the phone with Dr. High at to arrange for transfer. HPI Consult Data Date of Consult: 05/24/24 HPI Narrative HPI Narrative: MARIAN KOCH, is a 54 M who presents with a past medical history of essential hypertension, hyperlipidemia, CAD; s/p CABG x 4, history of pericardial window (~1991), history of diastolic CHF; with preserved LVEF, history of renal transplant x 2 (Right ~1993; with removal in 2000 & Left 2009); on Mycophenolate Mofetil, Tacrolimus and Prednisone, remote history of DVT/PE, history of thrombus if Right Subclavian vein and the proximal portion of the SVC, PVD; s/p Fem-Pop at [facility] (2017), history of Tobacco Abuse; with subsequent COPD, VIC, Chronic Anemia, Neurogenic Bladder, history of Hyperparathyroidism, GERD, history of Depression and OA who presents to [facility] ER complaining of fever and hypotension. Mr. Koch reports his symptoms began approximately six hours prior to arrival while he was driving back from [place], [place] when he began to feel very cold so he turned his heater up to 83 degrees. He then began to feel severe malaise and generalized weakness followed by facial flushing with him then spiking a temperature of 101.6 degrees Fahrenheit confirmed in the ER. He admits his only sick contact was his granddaughter who developed a viral URI - but that was in May 08, 2024 and he has been fine up until now. He also admits to a generalized headache - which he states is very unusual for him. He denies related neck pain, chest pain, SOB, abdominal pain, dysuria or rash - but he does admit that he thinks he might be rejecting his transplanted kidney. In the ER he was noted to have signs of sepsis with fever up to 101.6 degrees Fahrenheit complicated by clinical evidence of hypotension with blood pressure of ~85 mmHg systolic with Leukopenia of 2.7K present on admission with no obvious source of infection but with an elevated C-RP of 13.7 mg/L and an elevated Procalcitonin of 0.25 ng/mL in the ED the transplant physician on-call at his tertiary care center declining transfer to their facility at this time until a source could be clearly identified complicated by laboratory evidence of ORLANDO; with elevated creatinine of 3.06 mg/dL (up from 2.4 mg/dL on 04/26/2024) and he was then admitted to the ICU for treatment under the Sepsis protocol. The patient's work of breathing increased and he developed respiratory failure which required mechanical ventilation for approximately 24 hours on May 20. He was subsequently extubated and a UTI was documented. The patient was also placed on stress dose steroids and his immunosuppressant medical regiment has been held. He was also diagnosed with a right lower extremity DVT which has been recurrent in the past he has factor V Leiden deficiency documented. On the model maker fiberglass of May 24 the patient developed some chest discomfort and enzymes drawn at the time of that chest discomfort showed his troponin high-sensitivity of 1700. A delta troponin was measured at 1500. The patient's blood pressures been in the 160 range systolic was sinus rhythm with PACs at 90 bpm. He was placed on his Coreg and his heart rate has decreased back into the 50 to 60 bpm range. The patient's EKG at the time of his chest discomfort showed a chronic right bundle branch block with left anterior fascicular block with PACs and some minor change from his old EKG from April 2024 of minor T wave changes laterally. The patient's last catheterization was done at [facility] by Dr. Summers via the left groin approach. The patient has a chronically occluded right iliac he is status post femorofemoral bypass from left to right he does not have palpable pulses in his feet. But his feet are warm bilaterally. He has multiple shunts in both upper extremities there is a faint right radial pulse there is no left radial pulse palpable. The patient also has a history of right subclavian and proximal SVC thrombosis. His right arm is chronically edematous. The cath performed at [facility] in 2020 showed a patent ROBERT to the LAD patent saphenous vein graft to 1 obtuse marginal branch and a separate patent saphenous vein graft to another circumflex branch. The right coronary artery was chronically obstructed with cpuc-jl-vinry collateral flow. Patient had an echocardiogram early in his presentation here on May 19, 2024 that showed an ejection fraction of 50% with stage II diastolic dysfunction and mild left ventricular hypertrophy. His RV was normal in size and function the atria were both normal in size the mitral valve was normal there was mild tricuspid regurgitation with right ventricular systolic pressure estimated 23 mmHg and there was 1+ aortic insufficiency. The patient is now reporting that his chest symptoms have essentially resolved he does intermittently feel some chest discomfort but his enzymes are decreasing. His EKG is not consistent with a STEMI. And he has very limited access the last cath was done through the femorofemoral bypass up the left groin. The patient also still has ongoing antibiotic therapy for his urosepsis. I did discuss palliative care with the patient he is not interested at this time and wishes to pursue all avenues. We did discuss with a doctor Rhea High about transfer for higher level of care. Given the patient's complicated peripheral vascular disease, known coronary artery disease, ongoing urosepsis, and second renal transplant, I feel the patient would be better served at a higher level of care than we can provide here at [facility]. We discussed with the patient and he is agreeable to transfer. [facility] Medical History Heart attack PVD (peripheral vascular disease) End stage renal disease FDC systemic steroid user Pulmonary embolism Neurogenic bladder Hyperparathyroidism Hyperhomocystinemia GERD (gastroesophageal reflux disease) DVT (deep venous thrombosis) Depression Claudication VIC (obstructive sleep apnea) Chronic obstructive pulmonary disease (COPD) Chronic kidney disease, stage 3 Home Medications ?Medication ?Instructions ?Recorded ?Last Taken ?Type aspirin 81 mg chewable tablet 81 mg PO DAILY health maintenance 02/21/14 07/21/19 History doxazosin 8 mg tablet (Cardura) 8 mg PO DAILY BLADDER 02/21/14 07/21/19 History mycophenolate mofetil 500 mg tablet 500 mg PO BID ANTI-REJECTION 02/21/14 07/21/19 History omeprazole 20 mg capsule,delayed 20 mg PO DAILY ACID REFLUX 02/21/14 07/21/19 History release magnesium oxide 400 mg (241.3 mg 400 mg PO BID SUPPLEMENT 12/25/17 07/21/19 History magnesium) tablet (MgO) atorvastatin 80 mg tablet 80 mg PO DAILY cholesterol 12/30/17 07/21/19 History carvedilol 25 mg tablet 25 mg PO BID blood pressure 12/30/17 07/21/19 History tacrolimus 0.5 mg capsule,extended 2 mg PO DAILY 10/04/21 Unknown History release 24 hr (Astagraf XL) acetaminophen 500 mg tablet 1,000 mg PO Q8 PRN fever or pain 11/15/23 Unknown History amlodipine 5 mg tablet (Norvasc) 5 mg PO DAILY 11/15/23 Unknown History albuterol sulfate 90 mcg/actuation 1 - 2 puff inhalation Q4H PRN PRN 11/20/23 Unknown Rx aerosol inhaler Shortness Of Breath ##1 ferrous sulfate 325 mg (65 mg 325 mg PO DAILY 05/19/24 Unknown History iron) tablet furosemide 40 mg tablet 40 mg PO DAILY 05/19/24 Unknown History gabapentin 300 mg capsule 300 mg PO TID PRN pain 05/19/24 Unknown History ipratropium 0.5 mg-albuterol 3 mg 3 ml inhalation Q6H PRN PRN 05/19/24 Unknown History (2.5 mg base)/3 mL nebulization wheezing soln prednisone 5 mg tablet 5 mg PO DAILY 05/19/24 Unknown History Allergy/AdvReac Type Severity Reaction Status Date / Time propoxyphene napsylate (From Allergy Hives Verified 05/18/24 20:11 Darvocet-N) venom-honey bee (bee venom Allergy Hives Verified 05/18/24 20:11 (honey bee)) Family History Father Arthritis Cancer Lung cancer, 1990 CAD (coronary artery disease) Mother CAD (coronary artery disease) Diet 2012 Surgical History History of quadruple bypass S/P pericardial window creation (~1991) History of lung biopsy (~2007) Renal transplant recipient History of renal transplant Social History Smoking Status: Former smoker pack-years: 19 Tobacco: How many years used: 15 ROS Constitutional Constitutional: Reports systems reviewed and no addt'l complaints, except as documented Eyes Eyes: Reports systems reviewed and no addt'l complaints, except as documented ENT HEENT: Reports systems reviewed and no addt'l complaints, except as documented Cardiovascular Cardiovascular: Reports as per HPI Respiratory/Chest Respiratory/Chest: Reports as per HPI Gastrointestinal Gastrointestinal: Reports systems reviewed and no addt'l complaints, except as documented Genitourinary Genitourinary: Reports as per HPI Musculoskeletal Musculoskeletal: Reports as per HPI Integumentary Integumentary: Reports as per HPI Neurologic Neurologic: Reports systems reviewed and no addt'l complaints, except as documented Psychiatric Psychiatric: Reports systems reviewed and no addt'l complaints, except as documented Endocrine Endocrinology: Reports systems reviewed and no addt'l complaints, except as documented Hematologic/Lymphatic Hematologic/Lymphatic: Reports systems reviewed and no addt'l complaints, except as documented Allergic/Immunologic Allergic/Immunologic: Reports systems reviewed and no addt'l complaints, except as documented Physical Exam Const alert and oriented x3 HEENT normocephalic Eyes EOMs intact bilaterally Neck no JVD and no carotid bruits Chest Chest: midline sternotomy incision Resp Resp Narrative: The patient appears to have slight increase in respiratory work effort but he does not have conversational dyspnea. Auscultation: diminished lung sounds bilateral lower Cardio regular rate Heart Sounds: S1 normal, S2 normal and murmur systolic II/ soft mid right sternal border; Negative for click or gallop Peripheral Pulses: radial pulses present right 1+ and left other (Absent), femoral pulses present right other (Absent) and left (Difficult to palpate due to extensive scarring) 1+, posterior tibial pulses present bilateral diminished and dorsalis pedis pulses present bilateral diminished GI soft to palpation Narrative: Machado catheter in place Extremity Extremity Narrative: The right upper extremity is diffusely edematous chronically. There are multiple areas of ecchymoses and several scars related to old AV shunts. The left upper extremity also shows multiple scars related to old occluded left AV shunts. General Extremity: edema right upper extremity moderate and lower extremity mild and left lower extremity mild Skin General Skin Exam: ecchymosis Neuro Neuro Narrative: Alert and oriented x 3 the patient is a little slow to answer questions but reports that he is not confused he is just scared. Psych mental status grossly normal Risk Stratification Risk Stratification Applicable: Yes Age >/= 65: No >/= 3 CAD Risk Factors (HTN, HLD, DM, family hx of CAD, or current smoker): Yes Aspirin Use in the Past 7 Days: Yes Severe Angina (>/= episodes in 24 hours): Yes EKG ST Changes >/= 0.5mm: No Positive Cardiac Marker: Yes RACHEL Risk Stratification Score: 4 RACHEL % Risk: 20% Risk Charges/Coding Visit Charges Inpatient E&M: 24695 Init Hosp L3 Objective Data Vital Signs: Vital Signs Temp Pulse Resp BP Pulse Ox O2 Del Method O2 Flow Rate 98.5 F 95 19 H 166/96 H 93 Nasal Cannula 2 05/24/24 05:00 05/24/24 07:00 05/24/24 07:00 05/24/24 07:00 05/24/24 08:02 05/24/24 08:02 05/24/24 08:02 FiO2 25 05/22/24 04:00 Oxygen Flow Rate (L/min) 2 Oxygen Delivery Method Nasal Cannula Weight: 154 lb 8.705 oz Body Mass Index (BMI) 25.7 Intake & Output: Intake and Output for Last 24 Hours 05/22/24 05/23/24 05/24/24 23:59 23:59 23:59 Intake Total 2940.41 / 2940.41 2431.6 / 2531.6 569.55 / 569.55 Output Total 1300 / 1500 2300 / 2435 505 / 505 Balance 1640.41 / 1440.41 131.6 / 96.6 64.55 / 64.55 Lab / Micro Data Attestation: I reviewed the patient's lab results. 05/24/24 05:55 05/24/24 05:55 Labs: Laboratory Results - last 24 hr 05/23/24 12:09: APTT 72.4 H 05/23/24 18:25: APTT 53.1 H 05/24/24 01:25: APTT 100.0 H* 05/24/24 05:55: WBC 10.4, RBC 2.70 L, Hgb 7.7 L, Hct 25.6 L, MCV 94.8 H, MCH 28.5, MCHC 30.1 L, RDW Std Deviation 46.9 H, RDW Coeff of Adamaris 13.7, Plt Count 71 L, MPV 12.1 H, Immature Gran % (Auto) 0.900, Neut % (Auto) 87.4 H, Lymph % (Auto) 4.1 L, Parmer % (Auto) 7.5, Eos % (Auto) 0.0, Baso % (Auto) 0.1, Absolute Neuts (auto) 9.1 H, Absolute Lymphs (auto) 0.42 L, Nucleated RBC % 0, Differential Comment SCANNED, Platelet Estimate SLT DEC, [place] Cells 1+, Sodium 141, Potassium 3.4 L, Chloride 105, Carbon Dioxide 29.0, Anion Gap 7, BUN 77 H, Creatinine 2.65 H, Estim Creat Clear Calc 27.40, Est GFR (MDRD) Af Amer 32 L, Est GFR (MDRD) Non-Af 27 L, BUN/Creatinine Ratio 29.1 H, Glucose 150 H, Calcium 9.3, Troponin I High Sens 1780 H* 05/24/24 08:30: APTT 57.9 H, Troponin I High Sens 1590 H* Micro: Microbiology 05/18/24 22:27 Blood Culture (Wb) - Anticubital Right Blood Culture - Final No growth in 5 days. Rhythm Strip Rhythm Strip: Sinus Rhythm Rate: 55 Cardiology Labs/Tests 05/23/24 12:09: APTT 72.4 H 05/23/24 18:25: APTT 53.1 H 05/24/24 01:25: APTT 100.0 H* 05/24/24 05:55: WBC 10.4, RBC 2.70 L, Hgb 7.7 L, Hct 25.6 L, MCV 94.8 H, MCH 28.5, MCHC 30.1 L, Plt Count 71 L, MPV 12.1 H, Immature Gran % (Auto) 0.900, Neut % (Auto) 87.4 H, Lymph % (Auto) 4.1 L, Parmer % (Auto) 7.5, Eos % (Auto) 0.0, Baso % (Auto) 0.1, Absolute Neuts (auto) 9.1 H, Nucleated RBC % 0, Sodium 141, Potassium 3.4 L, Chloride 105, Carbon Dioxide 29.0, Anion Gap 7, BUN 77 H, Creatinine 2.65 H, Est GFR (MDRD) Af Amer 32 L, Est GFR (MDRD) Non-Af 27 L, BUN/Creatinine Ratio 29.1 H, Glucose 150 H, Calcium 9.3 05/24/24 08:30: APTT 57.9 H Rhythm: EKG: ECHO: Stress Test: Cardiac Cath: PCI: CT Surgery: Holter monitor: EPS: PPM: CXR: Chest CT Scan:
[2024-05-24] MEDS: Potassium Chloride 10mEq/100mL 10 MEQ/100 ML IV.SOLN. 100 MEQ IV BOLUS ×2 (09:43→10:43)
--- NOTE | 2024-05-24 11:03 | DS.PCM_ITS ---
Providers Date of Admission: 05/19/24 Date of Discharge: 05/24/24 Primary Care Physician: ENIO Gold Consultations 05/19/24 04:43 Consult: Investment Officer / Pulmonary Medicine Routine Consulting Provider: Intensivists/Pulmonary Med Reason for Consult: ICU management EMERGENT Consult: No Notified: Yes Date Notified: 05/19/24 Time Notified: 04:47 Method of Notification: Text 05/19/24 06:36 Consult: Nephrology Routine Consulting Provider: Evelia Marin Reason for Consult: [place] on CKD s/p transplant EMERGENT Consult: No MD Notified: Yes Date Notified: 05/19/24 Time Notified: 06:36 Method of Notification: Answering Service 05/19/24 09:28 Consult: Infectious Disease Routine Consulting Provider: Arnie Wallace Reason for Consult: Sepsis with immunosupression EMERGENT Consult: No Notified: Yes Date Notified: 05/19/24 Time Notified: 09:28 Method of Notification: Verbal 05/19/24 11:40 Consult: Vascular Surgery Routine Consulting Provider: Ganga Bagley Reason for Consult: DVT- IVC filter EMERGENT Consult: No Notified: Yes Date Notified: 05/19/24 Time Notified: 11:40 Method of Notification: Verbal 05/24/24 06:44 Consult: Cardiology Routine Consulting Provider: Celso Byrd Reason for Consult: Chest Pain EMERGENT Consult: No Notified: Yes Date Notified: 05/24/24 Time Notified: 07:53 Method of Notification: Text Reason For Visit: FEVER & SEPSIS WITH NO OBVIOUS SOURCE W/KIDNEY Diagnosis Discharge Diagnosis (1) History of renal transplant: Status: Acute Code(s): Z94.0 - Kidney transplant status (2) Sepsis: Status: Acute Code(s): A41.9 - Sepsis, unspecified organism Qualifiers: Sepsis type: sepsis due to unspecified organism Sepsis acute organ dysfunction status: with acute organ dysfunction Severe sepsis acute organ dysfunction type: acute renal failure Acute renal failure type: unspecified S evere sepsis shock status: without septic shock Qualified Code(s): A41.9 - Sepsis, unspecified organism; R65.20 - Severe sepsis without septic shock; N17.9 - Acute kidney failure, unspecified (3) Abnormal EKG: Status: Acute Code(s): R94.31 - Abnormal electrocardiogram [ECG] [EKG] (4) Troponin I above reference range: Status: Acute Code(s): R74.8 - Abnormal levels of other serum enzymes (5) Hypertension: Status: Chronic Code(s): I10 - Essential (primary) hypertension Qualifiers: Hypertension type: essential hypertension Qualified Code(s): I10 - Essential (primary) hypertension (6) Hypercholesterolemia: Status: Chronic Code(s): E78.00 - Pure hypercholesterolemia, unspecified (7) PVD (peripheral vascular disease): Status: Acute Code(s): I73.9 - Peripheral vascular disease, unspecified Plan # Septic shock secondary to enteric coccus UTI- off pressors # Elevated troponin # Respiratory distress status post intubation?extubated 05/22 # Right lower extremity acute DVT/acute right subclavian DVT/chronic right IJ DVT/known factor V Leiden mutation #[place] on CKD unclear subtype in setting of renal transplant x 2-improving # History of CAD status post CABG x 4 # History of chronic heart failure with preserved ejection fraction # History of neurogenic bladder # Lung nodule # Pancytopenia Medications at Discharge Home Medications aspirin 81 mg chewable tablet 81 mg PO DAILY health maintenance 02/21/14 doxazosin 8 mg tablet (Cardura) 8 mg PO DAILY BLADDER 02/21/14 mycophenolate mofetil 500 mg tablet 500 mg PO BID ANTI-REJECTION 02/21/14 omeprazole 20 mg capsule,delayed release 20 mg PO DAILY ACID REFLUX 02/21/14 magnesium oxide 400 mg (241.3 mg magnesium) tablet (MgO) 400 mg PO BID SUPPLEMENT 12/25/17 atorvastatin 80 mg tablet 80 mg PO DAILY cholesterol 12/30/17 carvedilol 25 mg tablet 25 mg PO BID blood pressure 12/30/17 tacrolimus 0.5 mg capsule,extended release 24 hr (Astagraf XL) 2 mg PO DAILY 10/04/21 acetaminophen 500 mg tablet 1,000 mg PO Q8 PRN fever or pain 11/15/23 amlodipine 5 mg tablet (Norvasc) 5 mg PO DAILY 11/15/23 albuterol sulfate 90 mcg/actuation aerosol inhaler 1 - 2 puff inhalation Q4H PRN PRN Shortness Of Breath ##1 11/20/23 ferrous sulfate 325 mg (65 mg iron) tablet 325 mg PO DAILY 05/19/24 furosemide 40 mg tablet 40 mg PO DAILY 05/19/24 gabapentin 300 mg capsule 300 mg PO TID PRN pain 05/19/24 ipratropium 0.5 mg-albuterol 3 mg (2.5 mg base)/3 mL nebulization soln 3 ml inhalation Q6H PRN PRN wheezing 05/19/24 prednisone 5 mg tablet 5 mg PO DAILY 05/19/24 Hospital Course Procedures - (Left IJ, intubation) Summary of Care Provided Minutes Spent on Discharge: 65 Hospital Course: MARIAN BARROSO, is a 54 M with a past medical history of essential hypertension, hyperlipidemia, CAD; s/p CABG x 4, history of pericardial window (~1991), history of diastolic CHF; with preserved LVEF, history of renal transplant x 2 (Right ~1993; with removal in 2000 & Left 2009); on Mycophenolate Mofetil, Tacrolimus and Prednisone, remote history of DVT/PE, history of thrombus if Right Subclavian vein and the proximal portion of the SVC, PVD; s/p Fem-Pop at [facility] (2017), history of Tobacco Abuse; with subsequent COPD, VIC, Chronic Anemia, Neurogenic Bladder, history of Hyperparathyroidism, GERD, history of Depression and OA who presents to [facility] ER complaining of fever and hypotension. Tertiary facility was contacted when patient was in the ED given his history of renal transplant there and his presentation and transfer was refused at the time so hospitalist contacted for admission. Patient with septic shock maxed out on Levophed, phenylephrine, vaso and was found to have Enterococcus urinary tract infection. Also had worsening of his kidney function. He was found to have right lower extremity DVT as well and was placed on heparin drip. Was seen by business development manager, nephrology, infectious disease. Patient slowly improved with antibiotics and vasopressors were weaned off and discontinued. Kidney function also was improving. Vitally stable on 05/23 and stress to steroids at begun weaning. On 05/24 patient had some chest pain and had an elevated troponin, pain was waxing and waning but given his overall medical comorbidities and medical complexity it was recommended patient be transferred to a tertiary care facility. Patient presently in stable condition to be transferred. Discussed with [facility] CVICU attending and our virtual customer assistant, Dr. Byrd, also spoke with CVICU attending. Repeat troponin decreased, vital stable, patient resting comfortably on repeat evaluation so he was accepted to [facility]. Transferred there in stable condition Physical Exam Narrative General: Alert, oriented HEENT: Atraumatic, normocephalic Eyes: Anicteric, normal conjunctiva, extraocular movements grossly intact Neck: Supple Respiratory: normal respiratory effort Cardiovascular: Regular rate, has PA and PVCs which are not new GI: Soft, nontender, nondistended Extremities: Trace lower extremity edema Musculoskeletal: Moving all extremities Neuro: No overt focal neurological deficits Skin: No rashes appreciated Psych: Cooperative Weight / BMI Weight Weight: 70.1 kg Body Mass Index (BMI) 25.7 ABG / Lab / Microbiology Data 05/24/24 05:55 05/24/24 05:55 Laboratory: Laboratory Results - last 24 hr 05/23/24 12:09: APTT 72.4 H 05/23/24 18:25: APTT 53.1 H 05/24/24 01:25: APTT 100.0 H* 05/24/24 05:55: WBC 10.4, RBC 2.70 L, Hgb 7.7 L, Hct 25.6 L, MCV 94.8 H, MCH 28.5, MCHC 30.1 L, RDW Std Deviation 46.9 H, RDW Coeff of Adamaris 13.7, Plt Count 71 L, MPV 12.1 H, Immature Gran % (Auto) 0.900, Neut % (Auto) 87.4 H, Lymph % (Auto) 4.1 L, [place] % (Auto) 7.5, Eos % (Auto) 0.0, Baso % (Auto) 0.1, Absolute Neuts (auto) 9.1 H, Absolute Lymphs (auto) 0.42 L, Nucleated RBC % 0, Differential Comment SCANNED, Platelet Estimate SLT DEC, Tristan Cells 1+, Sodium 141, Potassium 3.4 L, Chloride 105, Carbon Dioxide 29.0, Anion Gap 7, BUN 77 H, Creatinine 2.65 H, Estim Creat Clear Calc 27.40, Est GFR (MDRD) Af Amer 32 L, E st GFR (MDRD) Non-Af 27 L, BUN/Creatinine Ratio 29.1 H, Glucose 150 H, Calcium 9.3, Troponin I High Sens 1780 H* 05/24/24 08:30: APTT 57.9 H, Troponin I High Sens 1590 H* Microbiology: Microbiology 05/18/24 22:27 Blood Culture (Wb) - Anticubital Right Blood Culture - Final No growth in 5 days. 05/20/24 00:23 Sputum, Induced/Lukens Gram Stain - Final 05/20/24 00:23 Sputum, Induced/Lukens Respiratory Culture - Final 05/18/24 23:55 Urine, Clean Catch Urine Culture - Final Enterococcus faecalis 05/19/24 07:10 Mucosa - Nasopharyngeal Respiratory Panel (PCR) - Final 05/18/24 22:37 Mucosa - Nose SARS-CoV-2, Influenza & RSV (PCR) - Final D/C Instructions Discharge Diet: Renal Diet Meaningful Use Info Meaningful Use Meaningful Use Diagnoses (Choose all that apply): None applicable Ischemic Stroke Statin Dosing Therapy Reference: STATIN DOSE THERAPY REFERENCE: * Patients > 75 years receive moderate or high dose statin therapy. * Patients 75 years or YOUNGER should receive HIGH intensity statin dose unless contraindicated. You will be required to document reason for non-treatment if statin daily dose does not meet guidelines. HIGH DOSE STATIN THERAPY DAILY Atorvastatin > than or = to 40 mg Rosuvastatin > than or = to 20 mg Amlodipine + Atorvastatin > than or = to 2.5/40 mg Ezetimibe + Simvastatin 10/80 mg Simvastatin 80mg Discharge Plan Admission Admit Date/Time: 05/19/24 02:27 Primary Reason for Your Visit: fever and hypotension Attending Provider: Lian Soler Primary Care Provider: Diana Tate Consulting Providers: Reggie Pham; Guillaume Grimaldo; Trey Ro; Marian García; Leobardo Hung; Smooth Dahl; Sanjuana Gann; Fritz Singer; Sebas Lorenzo; Negrita Willis; Juan Miguel Stoner; Fernandez Franco; Gerardo Rodriguez; Rosales Banks; Roger Lindsey; Ranjan Moffett; Evelia Marin; Marian Aragon; Arnie Wallace; Ganga Bagley; Celso Byrd Discharge Orders/Prescriptions Prescriptions: No Action tacrolimus [Astagraf XL] 0.5 mg capsule,extended release 24hr 2 mg PO DAILY Rx Instructions: must administer in the morning on an empty stomach, 1 hour before or 2 hours after a meal mycophenolate mofetil 500 MG tablet 500 mg PO BID Patient Comments: Anti-rejection medication doxazosin [Cardura] 8 MG tablet 8 mg PO DAILY omeprazole 20 MG capsule 20 mg PO DAILY Patient Comments: acid reflux, gastric irritation aspirin 81 MG tablet,chewable 81 mg PO DAILY Patient Comments: blood thinner magnesium oxide [MgO] 400 MG tablet 400 mg PO BID atorvastatin 80 MG tablet 80 mg PO DAILY Patient Comments: carvedilol 25 MG tablet 25 mg PO BID Patient Comments: amlodipine [Norvasc] 5 mg tablet 5 mg PO DAILY acetaminophen 500 MG tablet 1,000 mg PO Q8 PRN (Reason: fever or pain) albuterol sulfate 1 INHALER inhaler 1 - 2 puff inhalation Q4H PRN PRN (Reason: Shortness Of Breath) Qty: 1 2RF furosemide 40 mg tablet 40 mg PO DAILY ferrous sulfate 325 mg (65 mg iron) tablet 325 mg PO DAILY gabapentin 300 mg capsule 300 mg PO TID PRN (Reason: pain) ipratropium-albuterol 0.5 mg-3 mg(2.5 mg base)/3 mL solution for nebulization 3 ml inhalation Q6H PRN PRN (Reason: wheezing) prednisone 5 mg tablet 5 mg PO DAILY Referrals / Follow Up: Diana Tate PA [Primary Care Provider] - Disposition Disposition (needs filled in before D/C Order can be placed): [facility]
== END 2024-05-24 12:44 | disposition short-term general hospital (02) | DRG 871 ==
LOC: ED 21:57 → ICU 05-19 03:09
PROVIDERS: Internal Medicine Critical Care Medicine; Internal Medicine Infectious Disease; Admitting Provider Internal Medicine; Emergency Provider Emergency Medicine; PCP Physician Assistant; Visit Provider Internal Medicine
DX: A41.81 Sepsis due to Enterococcus (principal); R65.21 Severe sepsis with septic shock; J96.01 Acute respiratory failure with hypoxia; D61.818 Other pancytopenia; I13.0 Hypertensive heart and chronic kidney disease with heart failure and stage 1 through stage 4 chronic kidney disease, or unspecified chronic kidney disease; Z94.0 Kidney transplant status; I82.411 Acute embolism and thrombosis of right femoral vein; N17.9 Acute kidney failure, unspecified; I82.B11 Acute embolism and thrombosis of right subclavian vein; I50.32 Chronic diastolic (congestive) heart failure; I82.C21 Chronic embolism and thrombosis of right internal jugular vein; I45.2 Bifascicular block; D68.51 Activated protein C resistance; N39.0 Urinary tract infection, site not specified; J44.9 Chronic obstructive pulmonary disease, unspecified; D63.1 Anemia in chronic kidney disease; F32.A Depression, unspecified; I73.9 Peripheral vascular disease, unspecified; N18.30 Chronic kidney disease, stage 3 unspecified; I25.10 Atherosclerotic heart disease of native coronary artery without angina pectoris; G47.33 Obstructive sleep apnea (adult) (pediatric); E78.00 Pure hypercholesterolemia, unspecified; I25.2 Old myocardial infarction; N31.9 Neuromuscular dysfunction of bladder, unspecified; R91.1 Solitary pulmonary nodule; Z79.52 Long term (current) use of systemic steroids; Z79.82 Long term (current) use of aspirin; Z79.899 Other long term (current) drug therapy; Z86.711 Personal history of pulmonary embolism; Z87.891 Personal history of nicotine dependence
CPT/HCPCS: 31500; 31720; 36600; 71045; 71046; 71250; 74176; 80048; 80053; 80197; 81001; 82533; 82803; 83605; 83735; 84100; 84145; 84443; 84484; 85025; 85610; 85652; 85730; 86140; 86141; 86644; 86645; 86664; 86665; 86747; 86850; 86870; 86900; 86901; 87040; 87070; 87077; 87086; 87088; 87186; 87205; 87497; 87631; 87633; 93005; 93306; 93970; 94002; 94003; 94640; 94660; 94668; 94762; 97110; 97162; 97166; 97802; 97803; 99252; 99285; J0878; J7030; J7040; J7050; A4216; C1751; G0463; J2405; J3490

== ENCOUNTER 2024-06-13 12:25 | Inpatient (IN) | payer OTHER, SELFPAY ==
[2024-06-13] VITALS (26 sets, daily range): BP systolic 64–134; BP diastolic 30–71; PULSE 71–99; RESP 14–38; TEMP 35.7–37.9; O2SAT 90–99; BMI 25.0
--- NOTE | 2024-06-13 12:49 | CT_ITS ---
INDICATION: Altered mental status EXAMINATION: CT BRAIN - CT Head or Brain W/O Contrast Injection TECHNIQUE: Multiple axial images were obtained of the head without intravenous contrast. The protocol utilizes one or more of the following dose reduction techniques: automated exposure control, adjustment of mA and/or kV according to patient size,and/or use of iterative reconstruction technique. IV Contrast dosage and agent: None. RADIATION DOSAGE (If Supplied By Facility): CTDIvol = ( 44.99 ) mGy, DLP = ( 812.98 ) mGycm COMPARISON: Prior study dated: 10/28/2015 FINDINGS: BRAIN PARENCHYMA: No intra- or extra-axial hemorrhage. No evidence of acute infarct. No intracranial mass or mass effect. There is preservation of the sawyer/white matter interface. Posterior fossa structures are unremarkable. Atherosclerotic calcifications of the cavernous internal carotid arteries. CSF SPACES: Appropriate for age. No hydrocephalus. Basal cisterns are patent. CALVARIUM, SKULL BASE, PARANASAL SINUSES AND MASTOID AIR CELLS: Mild mucosal thickening of the maxillary, ethmoid and sphenoid sinuses. No discrete lytic or blastic abnormalities. ORBITS: Both globes, extraocular muscles, optic nerves and retrobulbar fat appear unremarkable. ASPECTS Score for Acute Strokes: 10 CT/Brain/Head without Contrast IMPRESSION: 1. No acute intracranial process. 2. Mild sinus disease. Electronically Signed: Luis E Morillo MD at 13:57 EDT ,
--- NOTE | 2024-06-13 12:49 | RAD_ITS ---
INDICATION: Altered mental status EXAMINATION/TECHNIQUE: X-RAY - XR Chest 1 View COMPARISON: Prior study dated: 05/20/2024 FINDINGS: LINES/DEVICES: Endotracheal tube and nasogastric tube have been removed. LUNGS: Left retrocardiac opacities/infiltrates essentially unchanged. Persistent blunting of the left costophrenic angle. MEDIASTINUM AND CARDIOVASCULAR STRUCTURES: Stable cardiomediastinal silhouette. Status post median sternotomy. BONES AND SOFT TISSUES: Unchanged osseous structures. RAD/Chest 1 View (Portable) IMPRESSION: No significant change since the previous exam. Electronically Signed: Luis E Morillo MD at 13:59 EDT ,
--- NOTE | 2024-06-13 12:49 | EKG12_ITS ---
Test Reason : WEAKNESS Blood Pressure : / mmHG Vent. Rate : 092 BPM Atrial Rate : 092 BPM P-R Int : 146 ms QRS Dur : 160 ms QT Int : 384 ms P-R-T Axes : -20 -58 041 degrees QTc Int : 474 ms Normal sinus rhythm Right bundle branch block Left anterior fascicular block Bifascicular block Abnormal ECG Confirmed by LANCE MADRIGAL MD ([id number]), non linear editor POLY EVANGELISTA ([id number]) on 06/15/2024 6:45:37 AM Referred By: Confirmed By:LANCE MADRIGAL MD
--- NOTE | 2024-06-13 12:49 | EX.ED.DYSGE1 ---
HPI <Dr. Ganga Hayden, DO - Last Filed: 06/13/24 16:13> History of Present Illness Chief Complaint: Alt LOC Informant: patient and spouse/S.O. Onset/Context/Timing Onset: Yesterday Context: Gradual Onset Timing: Continuous Quality: Fever Location: Generalized Worsened by: Nothing Relieved by: Nothing Narrative Narrative: Patient presents with a fever that began last night. states it was up to 101.3. states patient has been getting more confused and somnolent. states patient has had some shortness of breath that is worse with exertion. states patient has had some nausea. Patient was recently admitted here and then transferred to [facility]. Patient was discharged from [facility] 2 days ago. Patient had a urinary tract infection and was septic at that time. Patient has a history of renal transplant. PENDING SALE TO [facility] <Dr. Ganga Hayden, DO - Last Filed: 06/13/24 16:13> PENDING SALE TO [facility] Medical History Heart attack PVD (peripheral vascular disease) End stage renal disease intermediate systemic steroid user Pulmonary embolism Neurogenic bladder Hyperparathyroidism Hyperhomocystinemia GERD (gastroesophageal reflux disease) DVT (deep venous thrombosis) Depression Claudication VIC (obstructive sleep apnea) Chronic obstructive pulmonary disease (COPD) Chronic kidney disease, stage 3 Home Medications ?Medication ?Instructions ?Recorded ?Last Taken ?Type doxazosin 8 mg tablet (Cardura) 4 mg PO DAILY BLADDER 02/21/14 07/21/19 History mycophenolate mofetil 500 mg tablet 500 mg PO BID ANTI-REJECTION 02/21/14 07/21/19 History omeprazole 20 mg capsule,delayed 20 mg PO DAILY ACID REFLUX 02/21/14 07/21/19 History release magnesium oxide 400 mg (241.3 mg 400 mg PO BID SUPPLEMENT 12/25/17 07/21/19 History magnesium) tablet (MgO) atorvastatin 80 mg tablet 80 mg PO DAILY cholesterol 12/30/17 07/21/19 History tacrolimus 0.5 mg capsule,extended 2 mg PO DAILY 10/04/21 Unknown History release 24 hr (Astagraf XL) acetaminophen 500 mg tablet 1,000 mg PO Q8 PRN fever or pain 11/15/23 Unknown History amlodipine 5 mg tablet (Norvasc) 5 mg PO DAILY 11/15/23 Unknown History albuterol sulfate 90 mcg/actuation 1 - 2 puff inhalation Q4H PRN PRN 11/20/23 Unknown Rx aerosol inhaler Shortness Of Breath ##1 ferrous sulfate 325 mg (65 mg 325 mg PO DAILY 05/19/24 Unknown History iron) tablet gabapentin 300 mg capsule 300 mg PO TID PRN pain 05/19/24 Unknown History ipratropium 0.5 mg-albuterol 3 mg 3 ml inhalation Q6H PRN PRN 05/19/24 Unknown History (2.5 mg base)/3 mL nebulization wheezing soln prednisone 5 mg tablet 5 mg PO DAILY 05/19/24 Unknown History apixaban 5 mg tablet 5 mg PO BID 06/13/24 Unknown History epoetin sridevi 4,000 unit/mL 3,600 unit subcut .3xw 06/13/24 Unknown History injection solution (Epogen) Allergy/AdvReac Type Severity Reaction Status Date / Time propoxyphene napsylate (From Allergy Hives Verified 05/18/24 20:11 Darvocet-N) venom-honey bee (bee venom Allergy Hives Verified 05/18/24 20:11 (honey bee)) Family History Father Arthritis Cancer Lung cancer, 1990 CAD (coronary artery disease) Mother CAD (coronary artery disease) Diet 2012 Surgical History (Updated 06/13/24 @ 23:[address] Ayla Bartlett MD) S/P femoral-femoral bypass surgery History of quadruple bypass S/P pericardial window creation (~1991) History of lung biopsy (~2007) Renal transplant recipient History of renal transplant Social History (Updated 06/13/24 @ 23:[address] Ayla Bartlett MD) household members: spouse Smoking Status: Former smoker pack-years: 19 Tobacco: How many years used: 15 alcohol intake: never substance use type: does not use ROS <Dr. Ganga Hayden, DO - Last Filed: 06/13/24 16:13> ROS ED Review of Systems ROS Unobtainable: due to mental condition Constitutional Constitutional ED: Reports chills and fever(s) Cardiovascular Cardiovascular: Denies chest pain Respiratory/Chest Respiratory/Chest: Reports dyspnea and dyspnea on exertion; Denies cough Gastrointestinal Gastrointestinal: Reports nausea; Denies vomiting Integumentary Denies rash Neurologic Neurologic: Reports weakness Allergic/Immunologic Allergic/Immunologic ED: Denies urticaria EXAM <Dr. Ganga Hayden, DO - Last Filed: 06/13/24 16:13> Physical Exam Const Vital Signs: 06/13/24 12:26 06/13/24 12:31 06/13/24 12:59 Temperature 97.8 F 98.6 F Temperature Source Temporal Oral Pulse Rate 99 98 Respiratory Rate 16 16 Blood Pressure 134/71 H 134/71 H Blood Pressure Mean 92 92 Pulse Ox 90 93 96 Oxygen Delivery Method Room Air Nasal Cannula Oxygen Flow Rate (L/min) 2 2 06/13/24 13:04 06/13/24 13:29 06/13/24 14:00 Temperature 99.4 F H 98.6 F Temperature Source Core Core Pulse Rate 91 86 Respiratory Rate 15 28 H Blood Pressure 107/70 73/48 L Blood Pressure Mean 82 56 Pulse Ox 96 96 99 Oxygen Delivery Method Nasal Cannula Room Air Nasal Cannula Oxygen Flow Rate (L/min) 3 2 2 06/13/24 14:00 06/13/24 14:14 06/13/24 15:00 Temperature 98.6 F Temperature Source Core Pulse Rate 81 85 79 Respiratory Rate 28 H 38 H Blood Pressure 73/48 L 77/48 L 73/41 L Blood Pressure Mean 56 57 51 Pulse Ox 99 94 Oxygen Delivery Method Nasal Cannula Nasal Cannula Oxygen Flow Rate (L/min) 2 06/13/24 16:00 06/13/24 17:00 06/13/24 18:00 Temperature 97.9 F 97.1 F L 96.3 F L Temperature Source Core Core Core Pulse Rate 89 77 73 Respiratory Rate 20 H 20 H 17 Blood Pressure 79/51 L 74/44 L 75/48 L Blood Pressure Mean 60 54 57 Pulse Ox 98 96 98 Oxygen Delivery Method Nasal Cannula Nasal Cannula Nasal Cannula Oxygen Flow Rate (L/min) 3 3 3 06/13/24 18:08 06/13/24 18:23 06/13/24 18:30 Temperature 96.4 F L 96.5 F L 96.4 F L Temperature Source Core Core Core Pulse Rate 71 74 71 Respiratory Rate 17 17 17 Blood Pressure 70/44 L 67/43 L 77/42 L Blood Pressure Mean 52 51 53 Pulse Ox 98 98 98 Oxygen Delivery Method Nasal Cannula Nasal Cannula Nasal Cannula Oxygen Flow Rate (L/min) 3 3 3 06/13/24 18:52 06/13/24 18:56 06/13/24 20:00 Temperature 97.7 F L Temperature Source Core Pulse Rate 71 80 80 Respiratory Rate 14 Blood Pressure 64/42 L 75/55 L 73/30 L Blood Pressure Mean 49 61 44 Pulse Ox 97 Oxygen Delivery Method Nasal Cannula Oxygen Flow Rate (L/min) 3 06/13/24 20:01 06/13/24 20:14 06/13/24 20:18 Temperature 97.7 F L 97.7 F L Temperature Source Core Core Pulse Rate 81 80 79 Respiratory Rate 16 17 Blood Pressure 84/60 L 83/53 L 88/60 L Blood Pressure Mean 68 63 69 Pulse Ox 96 97 Oxygen Delivery Method Oxygen Flow Rate (L/min) 3 3 06/13/24 20:31 06/13/24 21:00 06/13/24 21:51 Temperature 97.6 F L 99.6 F H Temperature Source Core Core Pulse Rate 71 71 89 Respiratory Rate 17 18 Blood Pressure 95/56 L 93/60 86/55 L Blood Pressure Mean 69 71 65 Pulse Ox 98 92 Oxygen Delivery Method Room Air Nasal Cannula Oxygen Flow Rate (L/min) 3 06/13/24 21:58 06/13/24 22:00 06/13/24 23:00 Temperature 99.8 F H 99.9 F H 100.3 F H Temperature Source Core Core Core Pulse Rate 90 85 Respiratory Rate 16 18 Blood Pressure 105/52 L 97/57 L Blood Pressure Mean 69 70 Pulse Ox 94 96 Oxygen Delivery Method Nasal Cannula Nasal Cannula Oxygen Flow Rate (L/min) 3 3 Positive well nourished and well developed General Appearance ED: well developed and NAD HEENT Reports moist mucous membranes Neck supple and no JVD Resp normal respiratory effort Auscultation: diminished lung sounds diffuse Cardio regular rate and regular rhythm GI non-distended Palpation: soft Neuro CN's II-XII intact bilaterally and no sensory deficits noted Neuro Narrative: Patient is somnolent on exam but wakes up to verbal stimuli. There are no focal motor or sensory deficits noted. Motor Exam: general weakness <Reinier García MD - Last Filed: 06/13/24 23:26> Physical Exam Const Vital Signs: 06/13/24 12:26 06/13/24 12:31 06/13/24 12:59 Temperature 97.8 F 98.6 F Temperature Source Temporal Oral Pulse Rate 99 98 Respiratory Rate 16 16 Blood Pressure 134/71 H 134/71 H Blood Pressure Mean 92 92 Pulse Ox 90 93 96 Oxygen Delivery Method Room Air Nasal Cannula Oxygen Flow Rate (L/min) 2 2 06/13/24 13:04 06/13/24 13:29 06/13/24 14:00 Temperature 99.4 F H 98.6 F Temperature Source Core Core Pulse Rate 91 86 Respiratory Rate 15 28 H Blood Pressure 107/70 73/48 L Blood Pressure Mean 82 56 Pulse Ox 96 96 99 Oxygen Delivery Method Nasal Cannula Room Air Nasal Cannula Oxygen Flow Rate (L/min) 3 2 2 06/13/24 14:00 06/13/24 14:14 06/13/24 15:00 Temperature 98.6 F Temperature Source Core Pulse Rate 81 85 79 Respiratory Rate 28 H 38 H Blood Pressure 73/48 L 77/48 L 73/41 L Blood Pressure Mean 56 57 51 Pulse Ox 99 94 Oxygen Delivery Method Nasal Cannula Nasal Cannula Oxygen Flow Rate (L/min) 2 06/13/24 16:00 06/13/24 17:00 06/13/24 18:00 Temperature 97.9 F 97.1 F L 96.3 F L Temperature Source Core Core Core Pulse Rate 89 77 73 Respiratory Rate 20 H 20 H 17 Blood Pressure 79/51 L 74/44 L 75/48 L Blood Pressure Mean 60 54 57 Pulse Ox 98 96 98 Oxygen Delivery Method Nasal Cannula Nasal Cannula Nasal Cannula Oxygen Flow Rate (L/min) 3 3 3 06/13/24 18:08 06/13/24 18:23 06/13/24 18:30 Temperature 96.4 F L 96.5 F L 96.4 F L Temperature Source Core Core Core Pulse Rate 71 74 71 Respiratory Rate 17 17 17 Blood Pressure 70/44 L 67/43 L 77/42 L Blood Pressure Mean 52 51 53 Pulse Ox 98 98 98 Oxygen Delivery Method Nasal Cannula Nasal Cannula Nasal Cannula Oxygen Flow Rate (L/min) 3 3 3 06/13/24 18:52 06/13/24 18:56 06/13/24 20:00 Temperature 97.7 F L Temperature Source Core Pulse Rate 71 80 80 Respiratory Rate 14 Blood Pressure 64/42 L 75/55 L 73/30 L Blood Pressure Mean 49 61 44 Pulse Ox 97 Oxygen Delivery Method Nasal Cannula Oxygen Flow Rate (L/min) 3 06/13/24 20:01 06/13/24 20:14 06/13/24 20:18 Temperature 97.7 F L 97.7 F L Temperature Source Core Core Pulse Rate 81 80 79 Respiratory Rate 16 17 Blood Pressure 84/60 L 83/53 L 88/60 L Blood Pressure Mean 68 63 69 Pulse Ox 96 97 Oxygen Delivery Method Oxygen Flow Rate (L/min) 3 3 06/13/24 20:31 06/13/24 21:00 06/13/24 21:51 Temperature 97.6 F L 99.6 F H Temperature Source Core Core Pulse Rate 71 71 89 Respiratory Rate 17 18 Blood Pressure 95/56 L 93/60 86/55 L Blood Pressure Mean 69 71 65 Pulse Ox 98 92 Oxygen Delivery Method Room Air Nasal Cannula Oxygen Flow Rate (L/min) 3 06/13/24 21:58 06/13/24 22:00 06/13/24 23:00 Temperature 99.8 F H 99.9 F H 100.3 F H Temperature Source Core Core Core Pulse Rate 90 85 Respiratory Rate 16 18 Blood Pressure 105/52 L 97/57 L Blood Pressure Mean 69 70 Pulse Ox 94 96 Oxygen Delivery Method Nasal Cannula Nasal Cannula Oxygen Flow Rate (L/min) 3 3 Sepsis Attestation <Dr. Ganga Hayden, DO - Last Filed: 06/13/24 16:13> Sepsis Alert: Yes Sepsis Attestation: Agree w/Sepsis Date exam was performed: 06/13/24 Time exam was performed: 12:45 Possible Source of Sepsis: Genitourinary Sepsis Organ Dysfunction Criteria Present: SBP < 90 mmHg or MAP < 65 mmHg, Creatinine > 2.0 mg/dL, INR > 1.5 or aPTT > 60 sec and Lactic Acid > 2 mmol/L Fluid Resuscitation Fluid resuscitation indicated?: Yes Fluid Resuscitation ordered: 30 ml/kg fluid bolus ordered Amount of fluid ordered: 2,040 MDM <Dr. Ganga Hayden, DO - Last Filed: 06/13/24 16:13> [facility] Narrative Medical decision making narrative: Differential diagnosis includes sepsis, urinary tract infection, pneumonia, electrolyte abnormality, acute kidney injury, cardiac dysrhythmia, cardiac ischemia, and viral illness. EKG will be obtained to assess for cardiac dysrhythmia and cardiac ischemia. CT scan of the brain will be obtained to assess for intracranial bleeding and stroke. Chest x-ray will be obtained to assess for pneumonia and pneumothorax. CBC will be obtained to assess for leukocytosis and anemia. Comprehensive metabolic profile will be obtained to assess for hepatic function, renal function, and electrolyte abnormality. High-sensitivity troponin will be obtained to assess for cardiac ischemia. 2-hour repeat high-sensitivity troponin will be obtained to assess for ongoing cardiac ischemia. Serum lactate will be obtained to assess for sepsis. PT with INR and PTT will be obtained to assess for coagulopathy. Urinalysis will be obtained to assess for urinary tract infection and hematuria. Blood cultures will be obtained to assess for sepsis. Urine culture will be obtained to assess for urinary tract infection. COVID-19, influenza, and RSV PCR will be obtained to assess for viral illness. Lab Data Attestation: I reviewed the patient's lab results. Lab results narrative: CBC was reviewed. There is a anemia with a hemoglobin of 7.3 and hematocrit 23.8. White blood cell count was 11.0. Platelets were low at 72. PT with INR and PTT were reviewed. Pro time was 29.7 and INR is 2.8. PTT was 50.3. Comprehensive metabolic profile was reviewed. BUN was 43 and creatinine was 3.39. These are consistent with previous results. AST was slightly elevated at 89 and ALT was low at 15. Serum lactate was reviewed and was slightly elevated at 2.4. High-sensitivity troponin was reviewed and was 39,296. This is increased from previous result. Urinalysis was reviewed. Leukocyte esterase was 500 with positive nitrates. There were greater than 100 white blood cells and 2+ bacteria. There are 25-50 red blood cells with occult blood of 250. COVID-19 PCR was reviewed and was negative. Influenza PCR was reviewed and was negative for influenza A and influenza B. RSV PCR was reviewed and was negative. Labs: Laboratory Results - last 24 hr 06/13/24 06/13/24 06/13/24 13:00 13:03 13:20 WBC 11.0 RBC 2.52 L Hgb 7.3 L Hct 23.8 L MCV 94.4 H MCH 29.0 MCHC 30.7 L RDW Std Deviation 54.4 H RDW Coeff of Adamaris 15.9 H Plt Count 72 L MPV 9.6 Immature Gran % (Auto) 0.800 Neut % (Auto) 87.4 H Lymph % (Auto) 4.9 L [place] % (Auto) 6.5 Eos % (Auto) 0.2 Baso % (Auto) 0.2 Absolute Neuts (auto) 9.6 H Absolute Lymphs (auto) 0.54 L Nucleated RBC % 0 Differential Comment SCANNED Platelet Estimate MOD DEC Hypochromasia 1+ Anisocytosis 1+ Tear Drop Cells 1+ Ovalocytes 2+ Crenated Cell 1+ Acanthocytes (Spur) 1+ Schistocytes RARE PT 29.7 H INR 2.8 APTT 50.3 H Sodium Cancelled Potassium Cancelled Chloride Cancelled Carbon Dioxide Cancelled Anion Gap Cancelled BUN Cancelled Creatinine Cancelled Estim Creat Clear Calc Cancelled Est GFR (MDRD) Af Amer Cancelled Est GFR (MDRD) Non-Af Cancelled BUN/Creatinine Ratio Cancelled Glucose Cancelled Lactic Acid 2.4 H* Calcium Cancelled Total Bilirubin Cancelled AST Cancelled ALT Cancelled Alkaline Phosphatase Cancelled Troponin I High Sens Cancelled Total Protein Cancelled Albumin Cancelled Globulin Cancelled Albumin/Globulin Ratio Cancelled Urine Color Yellow Urine Clarity Turbid Urine pH 6.0 Ur Specific [place] 1.015 Urine Protein 500 H Urine Glucose (UA) Normal Urine Ketones Negative Urine Occult Blood 250 H Urine Nitrite Positive H Urine Bilirubin Negative Urine Urobilinogen Normal Ur Leukocyte Esterase 500 H Urine RBC 25-50 SEEN Urine WBC >100 SEEN Ur Squamous Epith Cells 0-5 SEEN Ur Renal Epithelial Cell 5-10 SEEN Urine Bacteria 2+ Urine Mucus Not Reportable POC Glucose 92 06/13/24 06/13/24 13:31 17:21 WBC RBC Hgb Hct MCV MCH MCHC RDW Std Deviation RDW Coeff of Adamaris Plt Count MPV Immature Gran % (Auto) Neut % (Auto) Lymph % (Auto) [place] % (Auto) Eos % (Auto) Baso % (Auto) Absolute Neuts (auto) Absolute Lymphs (auto) Nucleated RBC % Differential Comment Platelet Estimate Hypochromasia Anisocytosis Tear Drop Cells Ovalocytes Crenated Cell Acanthocytes (Spur) Schistocytes PT INR APTT Sodium 137 Potassium 4.1 Chloride 107 Carbon Dioxide 24.0 Anion Gap 6 BUN 43 H Creatinine 3.39 H Estim Creat Clear Calc 21.42 Est GFR (MDRD) Af Amer 24 L Est GFR (MDRD) Non-Af 20 L BUN/Creatinine Ratio 12.7 Glucose 91 Lactic Acid 1.3 Calcium 8.9 Total Bilirubin 0.70 AST 89 H ALT 15 L Alkaline Phosphatase 57 Troponin I High Sens 91098 H* Total Protein 4.5 L Albumin 2.2 L Globulin 2.3 Albumin/Globulin Ratio 1.0 Urine Color Urine Clarity Urine pH Ur Specific [place] Urine Protein Urine Glucose (UA) Urine Ketones Urine Occult Blood Urine Nitrite Urine Bilirubin Urine Urobilinogen Ur Leukocyte Esterase Urine RBC Urine WBC Ur Squamous Epith Cells Ur Renal Epithelial Cell Urine Bacteria Urine Mucus POC Glucose Radiography Chest X-Ray - ED: 1 View, Read by ED Physician, Read by Radiologist and No Acute Disease Diagnostic Testing: Clinical Impression(s) from Imaging Studies Brain CT 06/13/24 12:49 IMPRESSION: 1. No acute intracranial process. 2. Mild sinus disease. Electronically Signed: Luis E Morillo MD at 13:57 EDT , Chest X-Ray 06/13/24 12:49 IMPRESSION: No significant change since the previous exam. Electronically Signed: Luis E Morillo MD at 13:59 EDT , Chest X-Ray 06/13/24 15:55 IMPRESSION: Bilateral airspace disease stable. Electronically Signed: Estiven Pathak MD at 16:50 EDT , CT scan of the brain was obtained. There is no acute intracranial abnormality. This was interpreted by the radiologist and was also independently reviewed by myself. Portable 1 view chest x-ray was obtained. On my independent interpretation, lung pierson are clear. There is normal cardiac silhouette. Bony thorax is normal. There is no acute process noted. Radiologist also interpreted the x-ray and agrees. Repeat portable chest x-ray was obtained. There is 1 view. On my independent interpretation, there is no pneumothorax. There is no acute infiltrate noted. Bony thorax is normal. EKG Initial EKG: Attestation: I personally reviewed and interpreted this EKG as follows: Interpretation: Sinus Rhythm (92) and Non-Specific ST Changes Comments: EKG was obtained. On my independent interpretation, it shows normal sinus rhythm with a rate of 92. NV interval was normal at 146 ms. QRS interval was prolonged at 160 ms. QTc interval was normal at 474 ms. There is left axis deviation at -58. There is right bundle branch block pattern noted. There is left anterior fascicular block pattern noted. Prior EKG tracings: available for review Prior: Unchanged (05/24/2024) Management Discussion w/another healthcare provider: [employer] Treatment and Re-Evaluation :: Patient was given IV fluids and Tylenol here. Patient met sepsis criteria. Patient was given 30 cc/kg bolus. Patient was started on Zosyn. Patient's prior urine culture was reviewed which showed Enterococcus that was sensitive to everything except tetracycline. A right internal jugular central line was attempted using ultrasound guidance without success. Patient and spouse were advised of the findings. Spouse recommended transfer back to [facility] where he was just discharged from 2 days ago. Case was discussed with [facility] transfer center and Dr. Melissa. Patient was accepted there. Currently we are waiting for bed assignment and the patient will be transferred there when a bed is assigned. Care of the patient was turned over the oncoming physician pending the bed assignment and transfer. <Reinier García MD - Last Filed: 06/13/24 23:26> [facility] Lab Data Labs: Laboratory Results - last 24 hr 06/13/24 06/13/24 06/13/24 13:00 13:03 13:20 WBC 11.0 RBC 2.52 L Hgb 7.3 L Hct 23.8 L MCV 94.4 H MCH 29.0 MCHC 30.7 L RDW Std Deviation 54.4 H RDW Coeff of Adamaris 15.9 H Plt Count 72 L MPV 9.6 Immature Gran % (Auto) 0.800 Neut % (Auto) 87.4 H Lymph % (Auto) 4.9 L [place] % (Auto) 6.5 Eos % (Auto) 0.2 Baso % (Auto) 0.2 Absolute Neuts (auto) 9.6 H Absolute Lymphs (auto) 0.54 L Nucleated RBC % 0 Differential Comment SCANNED Platelet Estimate MOD DEC Hypochromasia 1+ Anisocytosis 1+ Tear Drop Cells 1+ Ovalocytes 2+ Crenated Cell 1+ Acanthocytes (Spur) 1+ Schistocytes RARE PT 29.7 H INR 2.8 APTT 50.3 H Sodium Cancelled Potassium Cancelled Chloride Cancelled Carbon Dioxide Cancelled Anion Gap Cancelled BUN Cancelled Creatinine Cancelled Estim Creat Clear Calc Cancelled Est GFR (MDRD) Af Amer Cancelled Est GFR (MDRD) Non-Af Cancelled BUN/Creatinine Ratio Cancelled Glucose Cancelled Lactic Acid 2.4 H* Calcium Cancelled Total Bilirubin Cancelled AST Cancelled ALT Cancelled Alkaline Phosphatase Cancelled Troponin I High Sens Cancelled Total Protein Cancelled Albumin Cancelled Globulin Cancelled Albumin/Globulin Ratio Cancelled Urine Color Yellow Urine Clarity Turbid Urine pH 6.0 Ur Specific [place] 1.015 Urine Protein 500 H Urine Glucose (UA) Normal Urine Ketones Negative Urine Occult Blood 250 H Urine Nitrite Positive H Urine Bilirubin Negative Urine Urobilinogen Normal Ur Leukocyte Esterase 500 H Urine RBC 25-50 SEEN Urine WBC >100 SEEN Ur Squamous Epith Cells 0-5 SEEN Ur Renal Epithelial Cell 5-10 SEEN Urine Bacteria 2+ Urine Mucus Not Reportable POC Glucose 92 06/13/24 06/13/24 13:31 17:21 WBC RBC Hgb Hct MCV MCH MCHC RDW Std Deviation RDW Coeff of Adamaris Plt Count MPV Immature Gran % (Auto) Neut % (Auto) Lymph % (Auto) [place] % (Auto) Eos % (Auto) Baso % (Auto) Absolute Neuts (auto) Absolute Lymphs (auto) Nucleated RBC % Differential Comment Platelet Estimate Hypochromasia Anisocytosis Tear Drop Cells Ovalocytes Crenated Cell Acanthocytes (Spur) Schistocytes PT INR APTT Sodium 137 Potassium 4.1 Chloride 107 Carbon Dioxide 24.0 Anion Gap 6 BUN 43 H Creatinine 3.39 H Estim Creat Clear Calc 21.42 Est GFR (MDRD) Af Amer 24 L Est GFR (MDRD) Non-Af 20 L BUN/Creatinine Ratio 12.7 Glucose 91 Lactic Acid 1.3 Calcium 8.9 Total Bilirubin 0.70 AST 89 H ALT 15 L Alkaline Phosphatase 57 Troponin I High Sens 11540 H* Total Protein 4.5 L Albumin 2.2 L Globulin 2.3 Albumin/Globulin Ratio 1.0 Urine Color Urine Clarity Urine pH Ur Specific [place] Urine Protein Urine Glucose (UA) Urine Ketones Urine Occult Blood Urine Nitrite Urine Bilirubin Urine Urobilinogen Ur Leukocyte Esterase Urine RBC Urine WBC Ur Squamous Epith Cells Ur Renal Epithelial Cell Urine Bacteria Urine Mucus POC Glucose Radiography Diagnostic Testing: Clinical Impression(s) from Imaging Studies Brain CT 06/13/24 12:49 IMPRESSION: 1. No acute intracranial process. 2. Mild sinus disease. Electronically Signed: Luis E Morillo MD at 13:57 EDT , Chest X-Ray 06/13/24 12:49 IMPRESSION: No significant change since the previous exam. Electronically Signed: Luis E Morillo MD at 13:59 EDT , Chest X-Ray 06/13/24 15:55 IMPRESSION: Bilateral airspace disease stable. Electronically Signed: Estiven Pathak MD at 16:50 EDT , Additional Tests and Interventions Additional Tests or Interventions: Dr. García: Patient endorsed to me by Dr. Hayden on this patient who was to be transferred for sepsis from [facility]. He was recently discharged from [facility]. He is awaiting a bed. Patient experienced continued hypotension. As Dr. Hayden was unable to place central venous catheter in the right IJ, and there are no other options as he is on an anticoagulant so subclavian could not be placed, and he has history of femorofemoral bypass according to his , Levophed was started through a peripheral IV. Later I was called to the room and the patient has developed a right IJ hematoma. He still has a palpable carotid pulse. He denies any difficulty swallowing. This further complicates placement of a left IJ. As he is requiring more central venous access, Dr. Bartlett discussed with him IO placement. I was able to place that a IO in the left medial tibia proximally and he was administered a lidocaine 5 mL through the IO for analgesia. He will also be given 25 mcg of fentanyl for pain. Initially, he did have a bed at , but they took priority for their own ED patient's. I discussed patient with Dr. Bartlett for admission to the ICU. Patient is in guarded condition. Procedures <Dr. Ganga Hayden, DO - Last Filed: 06/13/24 16:13> Other Procedures Procedure(s): The right internal jugular area was cleaned with chlorhexidine. The area was anesthetized with 1% lidocaine locally. Ultrasound guidance was used. The right internal jugular vein was attempted to be cannulated. However, the right internal jugular vein was difficult to visualize on ultrasound. Attempts were made to puncture the internal jugular vein without success. Patient tolerated procedure well. <Dr. Ganga Hayden, DO - Last Filed: 06/13/24 16:13> Critical Care Time Critical Care Time: Yes Critical care time (excluding procedures): 30-74 minutes (39), Including time spent:, Discussing w/Patient &/or Family/Parker, Discussing w/Consultants, Arranging Admission or Transfer and Performing Direct Patient Care at Bedside Discharge Plan Triage Chief Complaint: Alt LOC Other Complaint: Fever ED Provider: Ganga Hayden Dx/Rx/DC Orders Clinical Impression: Septic shock, Troponin I above reference range, Chronic kidney disease, Thrombocytopenia, Chronic anemia, History of renal transplant, Urinary tract infection Prescriptions: No Action tacrolimus [Astagraf XL] 0.5 mg capsule,extended release 24hr 2 mg PO DAILY Rx Instructions: must administer in the morning on an empty stomach, 1 hour before or 2 hours after a meal mycophenolate mofetil 500 MG tablet 500 mg PO BID Patient Comments: Anti-rejection medication doxazosin [Cardura] 8 MG tablet 4 mg PO DAILY omeprazole 20 MG capsule 20 mg PO DAILY Patient Comments: acid reflux, gastric irritation magnesium oxide [MgO] 400 MG tablet 400 mg PO BID atorvastatin 80 MG tablet 80 mg PO DAILY Patient Comments: amlodipine [Norvasc] 5 mg tablet 5 mg PO DAILY acetaminophen 500 MG tablet 1,000 mg PO Q8 PRN (Reason: fever or pain) albuterol sulfate 1 INHALER inhaler 1 - 2 puff inhalation Q4H PRN PRN (Reason: Shortness Of Breath) Qty: 1 2RF ferrous sulfate 325 mg (65 mg iron) tablet 325 mg PO DAILY gabapentin 300 mg capsule 300 mg PO TID PRN (Reason: pain) ipratropium-albuterol 0.5 mg-3 mg(2.5 mg base)/3 mL solution for nebulization 3 ml inhalation Q6H PRN PRN (Reason: wheezing) prednisone 5 mg tablet 5 mg PO DAILY Epogen 4,000 unit/mL solution 3,600 unit subcut .3xw apixaban 5 mg tablet 5 mg PO BID Primary Care Provider: Diana Tate Referrals: Diana Tate PA [Primary Care Provider] - Print Language: Yoruba Disposition Disposition: Acute Care Hospital Discharge Location: [facility]
[2024-06-13] MEDS: Acetaminophen 500 MG Tablet 1000 MG PO (12:57)
[2024-06-13] MEDS: 0.9% Normal Saline (1000mL) 1,000 ML 1000 ML IV ×2 (12:58→14:15)
[2024-06-13 13:14] LABS: Absolute Lymphocyte Count 0.54 X10^3/uL (0.83-4.51); Absolute Neutrophil Count 9.6 X10^3/uL (2.0-7.7); Basophil# 0.02 X10^3/uL; Basophil% 0.2 % (0-1); Eosinophil# 0.02 X10^3/uL; Eosinophils% 0.2 % (0-5); Hematocrit 23.8 % (40-54); Hemoglobin 7.3 g/dL (13.0-16.5); Lymphocyte # 0.54 X10^3/ul (0.83-4.51); Lymphocyte % 4.9 % (19-41); Mean Corp Hgb Conc 30.7 g/dL (32-36); Mean Corpuscular Volume 94.4 fL (80-94); Mean Platelet Vol. 9.6 fl (6.2-12.0); Monocyte# 0.72 X10^3/uL; Monocyte% 6.5 % (0-10); NRBC Flagged by Analyzer 0 % (0-5); Neutrophil # 9.63 X10^3/uL (2.7-7.7); Neutrophil % 87.4 % (47-70); POSITIVE COUNT YES; POSITIVE DIFFERENTIAL YES; Platelet Count 72 K/mm3 (150-450); RBC Distribution Width CV 15.9 % (11.6-14.6); RBC Distribution Width SD 54.4 fl (35.1-43.9); Red Blood Count 2.52 M/mm3 (4.6-6.2)
[2024-06-13 13:17] LABS: Differential Indicated SCAN CRITERIA MET
--- NOTE | 2024-06-13 13:18 | ED.RN ---
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 Both sides of his chest were tried. Patient has a large vein right under the nipple on the right side of his rib cage. DR Hayden and Dr Vegas aware of IV placement and are ok with it. Blood return good and flush is good.
[2024-06-13 13:20] LABS: International Normalized Ratio 2.8; Prothrombin Time (Protime)PT. 29.7 SECONDS (11.7-14.9)
[2024-06-13 13:21] LABS: Partial Thromboplast Time 50.3 Seconds (24.1-36.2)
[2024-06-13 13:24] LABS: Color, Urine Yellow (Yellow); Glucose, Dipstick Normal (Normal); Ketone-Dipstick Negative (Negative); Leukocyte Esterase-Dipstick 500 /ul (Negative); Nitrite-Dipstick Positive (Negative); Occult Blood-Urine 250 /ul (Negative); Protein-Dipstick 500 mg/dl (Negative); Specific Gravity, Urine 1.015 (1.002-1.030); Urine Bilirubin Dipstick Negative (Negative); Urine Clarity Turbid (Clear); Urine Urobilinogen Normal (Normal)
[2024-06-13 13:31] LABS: White Blood Cells >100 SEEN /hpf (0-5)
[2024-06-13 13:34] LABS: Bacteria 2+ /hpf (None Seen); Red Blood Cells-Urine 25-50 SEEN /hpf (0-5); Renal Epithelial Cells 5-10 SEEN /hpf (0-5); Squamous Epithelial Cells - UA 0-5 SEEN /hpf (0-5)
[2024-06-13 13:37] LABS: Bedside Glucose 92 mg/dL (74-106)
[2024-06-13 13:50] LABS: Lactic Acid 2.4 mmol/L (0.4-1.9)
[2024-06-13 13:56] LABS: Differential Comment SCANNED; Platelet Estimate MOD DEC (ADEQ)
[2024-06-13 13:57] LABS: Acanthocytes 1+; Anisocytosis 1+; Crenated RBC 1+; Hypochromasia 1+; Ovalocyte 2+; Schistocytes RARE; Tear Drop Cell 1+
[2024-06-13] MEDS: Piperacil/Tazobactam 4.5 GM in 0.9% Normal Saline (100mL MB+) 100 ML IV (14:15)
--- NOTE | 2024-06-13 14:17 | ED.RN ---
[facility] CALLED. PATIENT INFO GIVEN. STATES THEY WILL CALL BACK WITH MEDICAL ICU ATTENDING
[2024-06-13 14:21] LABS: AST(SGOT) 89 U/L (15-37); Alanine Aminotransfer ALT/SGPT 15 U/L (16-61); Albumin, Serum 2.2 g/dL (3.2-5.0); Alkaline Phosphatase 57 U/L (45-117); Anion Gap 6 (5-15); BUN 43 mg/dL (7-18); BUN/Creat Ratio 12.7 RATIO (10-20); Calcium,Total 8.9 mg/dL (8.5-10.1); Chloride 107 mmol/L (98-107); Creatinine, Serum 3.39 mg/dL (0.70-1.30); EST Glomerular Filtration Rate 20 mL/min (>60); Est Glom Filt Rate - Afr Amer 24 mL/min (>60); Estimated Creatinine Clearance 21.42 ml/min; Globulin 2.3 g/dL (2.2-4.2); Glucose 91 mg/dL (74-106); Potassium 4.1 mmol/L (3.5-5.1); Protein, Total 4.5 g/dL (6.4-8.2); Sodium Level 137 mmol/L (136-145); Troponin-I HS (w/2H Reflex) 39926 pg/mL (3.0-78.0)
--- NOTE | 2024-06-13 15:55 | RAD_ITS ---
STUDY: X-RAY CHEST REASON FOR EXAM: Male, 54 years old. dyspnea TECHNIQUE: Single frontal view of the chest. COMPARISON: June 13, 2024 FINDINGS: Sternotomy wires. Subclavian endovascular stent. Bilateral airspace disease unchanged. There is no demonstrated pleural abnormality. Cardiomegaly. Normal mediastinum and vimal. Normal visualized pulmonary arteries. Normal visualized aortic arch and descending thoracic aorta. Normal visualized thoracic spine. Normal visualized ribs, clavicles, and shoulders. There is no demonstrated abnormality of the visualized soft tissue structures of the upper abdomen. RAD/Chest 1 View (Portable) IMPRESSION: Bilateral airspace disease stable. Electronically Signed: Estiven Pathak MD at 16:50 EDT ,
[2024-06-13] MEDS: 0.9% Normal Saline (1000mL) 1,000 ML 999 ML IV (16:37)
[2024-06-13 17:04] LABS: Reflex Lactate? Y
[2024-06-13 18:12] LABS: Lactic Acid 1.3 mmol/L (0.4-1.9)
--- NOTE | 2024-06-13 18:27 | ED.RN ---
DISCUSSED WITH DR. CEBALLOS REGARDING PT RECEIVING VASO PRESSORS. PER DR. CEBALLOS PT WILL NOT BE RECEIVING VASOPRESSORS DUE TO LACK OF APPROPRIATE ACCESS TO INITIATE VASOPRESSORS. DR. RODRÍGUEZ WAS UNABLE TO PLACE A CENTRAL LINE. DR. CEBALLOS STATES HE DOES NOT WANT TO ATTEMPT AT A CENTRAL LINE DUE TO DR. HARRIS FAILED ATTEMPT.
[2024-06-13] MEDS: Norepinephrine 8 MG in 0.9% Normal Saline (250mL Bag) 242 ML 9.4 MG CONT INF (20:01)
--- NOTE | 2024-06-13 20:33 | ED.RN ---
Attempted an additional line, unsuccessful.
--- NOTE | 2024-06-13 20:37 | ED.RN ---
I CALLED THE TRANSFER LINE AT 2030 FOR AN ESTIMATED BED, THEY SAID HOPEFULLY TONIGHT, BUT DON'T QUOTE ME
[2024-06-13] MEDS: Acetaminophen 325 MG Tablet 650 MG PO (21:54)
--- NOTE | 2024-06-13 22:06 | ED.RN ---
I CALLED [facility] AT 2200 FOR AN UPDATE ON THE BED ASSIGNMENT. HE SAID THE EMERGENCY ROOM RECIEVED 4 NEW MORE CRITICAL PTS. THAT TOOK THE POSSIBLE AVAILABLE BEDS. WE ARE JUST WAITING FOR DISCHARGES FOR THIS PT. TO GET A BED ASSIGNMENT
--- NOTE | 2024-06-13 22:25 | HP.PCM.HOS_ITS ---
HPI - General General Date of Admission: 06/13/24 Date of Service: 06/13/24 Chief Complaint: Fever, confusion. HPI Narrative The patient is a 54 y/o M w/ PMHx: PVD/PAD, VIC, COPD, Hx ESRD s/p renal Txp now with CKD stage IV per GFR trending, HTN, HLD, Chronic anemia/iron deficiency anemia/AOCD, Chronic thrombocytopenia, CAD s/p CABG x 4, GERD, Hx VTE (DVT, PE), Chronic neurogenic bladder, Former tobacco use who presents to the [facility] ED on 06/13/2024 with history of recently being discharged from [facility] 2 days prior with sepsis at that time secondary to acute complicated renal infection/UTI in the setting of renal transplant now presenting with significant fever starting the evening prior with temperature up to 101.3 with increased confusion, lethargy, dyspnea which is now worse with exhaustion as well as nausea without emesis prompting to bring patient back in for evaluation. Patient notes that he was discharged from not on any antibiotic therapy and reports that he was under the impression his infection had been treated and patient. Workup in the ED included T97.8, heart rate 99, BP 1 3471, respiratory rate 16, initially 90% on room air however during ED presentation patient decompensated and became hypotensive with map down as low as 44 eventually requiring 3 L nasal cannula with most recent repeat vitals at 2030 heart rate 71, BP 95/56 with MAP of 69 noted to be 97% on 3 L nasal cannula, CBC with WBC 11, hemoglobin 7.3, MCV 94.4, platelet 72 with left shift and lymphopenia, coags with INR 2.8, PT 29.7, PTT 50.3, CMP with BUN/creatinine 43/3.38, GFR 20, creatinine clearance 21.42, initial lactic acid 2.4 with repeat 1.3 per protocol, hepatic profile with AST/ALT 89/15, troponin 17255, urinalysis noted to be turbid, specific gravity 1.015, protein 500, occult blood 250, positive nitrite, leukocyte esterase 500 with urine RBCs 25-50 with greater than 100 urine WBCs with 2+ urine bacteria, CT of the brain with no acute intracranial findings, chest x-ray with no significant acute process with repeat chest x-ray at 1555 secondary to worsening dyspnea with bilateral airspace disease noted to be stable with no demonstrated pleural abnormality with evidence strongly wires and subclavian endovascular stent present, SARS COVID/influenza/RSV negative, blood culture pending per ED, urine culture pending per ED, EKG sinus rhythm with nonspecific ST-T changes with no acute evidence of ischemia. In the ED patient administered 30 cc/kg IV fluid bolus as well as Tylenol 1000 mg p.o. x 1, IV Zosyn 4.5 g x 1 and initiated on norepinephrine drip. Per ED report note attempts were made to place a right IJ central catheter however this apparently was unsuccessful. Given inability to also access bilateral femoral regions secondary to prior surgical intervention in these regions discussed with Dr. García and Dr. Vegas ED physicians and at this time prior to transition from the ED to the ICU they will perform an IO access as nursing is also unsuccessfully been able to place any other peripheral access. In addition while in the ED patient did have enlargement of the right neck following attempted right IJ placement earlier with sandbag placed and improvement with no further enlargement and no bleeding from this region upon hospitalist evaluation in the ED. 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 Pulmonary embolism Neurogenic bladder Hyperparathyroidism Hyperhomocystinemia GERD (gastroesophageal reflux disease) DVT (deep venous thrombosis) Depression Claudication VIC (obstructive sleep apnea) Chronic obstructive pulmonary disease (COPD) Chronic kidney disease, stage 3 Home Medications ?Medication ?Instructions ?Recorded ?Last Taken ?Type doxazosin 8 mg tablet (Cardura) 4 mg PO DAILY BLADDER 02/21/14 07/21/19 History mycophenolate mofetil 500 mg tablet 500 mg PO BID ANTI-REJECTION 02/21/14 07/21/19 History omeprazole 20 mg capsule,delayed 20 mg PO DAILY ACID REFLUX 02/21/14 07/21/19 History release magnesium oxide 400 mg (241.3 mg 400 mg PO BID SUPPLEMENT 12/25/17 07/21/19 History magnesium) tablet (MgO) atorvastatin 80 mg tablet 80 mg PO DAILY cholesterol 12/30/17 07/21/19 History tacrolimus 0.5 mg capsule,extended 2 mg PO DAILY 10/04/21 Unknown History release 24 hr (Astagraf XL) acetaminophen 500 mg tablet 1,000 mg PO Q8 PRN fever or pain 11/15/23 Unknown History amlodipine 5 mg tablet (Norvasc) 5 mg PO DAILY 11/15/23 Unknown History albuterol sulfate 90 mcg/actuation 1 - 2 puff inhalation Q4H PRN PRN 11/20/23 Unknown Rx aerosol inhaler Shortness Of Breath ##1 ferrous sulfate 325 mg (65 mg 325 mg PO DAILY 05/19/24 Unknown History iron) tablet gabapentin 300 mg capsule 300 mg PO TID PRN pain 05/19/24 Unknown History ipratropium 0.5 mg-albuterol 3 mg 3 ml inhalation Q6H PRN PRN 05/19/24 Unknown History (2.5 mg base)/3 mL nebulization wheezing soln prednisone 5 mg tablet 5 mg PO DAILY 05/19/24 Unknown History apixaban 5 mg tablet 5 mg PO BID 06/13/24 Unknown History epoetin sridevi 4,000 unit/mL 3,600 unit subcut .3xw 06/13/24 Unknown History injection solution (Epogen) Allergy/AdvReac Type Severity Reaction Status Date / Time propoxyphene napsylate (From Allergy Hives Verified 05/18/24 20:11 Darvocet-N) venom-honey bee (bee venom Allergy Hives Verified 05/18/24 20:11 (honey bee)) Family History Father Arthritis Cancer Lung cancer, 1990 CAD (coronary artery disease) Mother CAD (coronary artery disease) Diet 2012 Surgical History (Updated 06/13/24 @ 23:[address] Ayla Bartlett MD) S/P femoral-femoral bypass surgery History of quadruple bypass S/P pericardial window creation (~1991) History of lung biopsy (~2007) Renal transplant recipient History of renal transplant Social History (Updated 06/13/24 @ 23:[address] Ayla Bartlett MD) household members: spouse Smoking Status: Former smoker pack-years: 19 Tobacco: How many years used: 15 alcohol intake: never substance use type: does not use ROS ROS Narrative Admission Review of Systems: CONSTITUTIONAL: No weight loss, + fever, chills, weakness or fatigue. HEENT: Eyes: No visual loss, blurred vision, double vision or yellow sclerae. Ears, Nose, Throat: No hearing loss, sneezing, congestion, runny nose or sore throat. SKIN: No rash or itching, lesions, wounds. CARDIOVASCULAR: + Edema. No chest pain, chest pressure or chest discomfort, palpitations, orthopnea, syncopal events. RESPIRATORY: + Dyspnea. No marked cough or sputum, wheezing, hemoptysis. GASTROINTESTINAL: + Anorexia. No nausea, vomiting or diarrhea, abdominal pain, melena, BRBPR. GENITOURINARY: + Recent UTI diagnosis with dysuria/frequency at that time. No retention NEUROLOGICAL: + Confusion. No headache, dizziness, syncope, paralysis, ataxia, numbness or tingling in the extremities, focal weakness, change in bowel or bladder control, seizure. MUSCULOSKELETAL: + muscle, back pain, joint pain or stiffness. HEMATOLOGIC: + Chronic anemia, easy bleeding/bruising. LYMPHATICS: No enlarged nodes. No history of splenectomy. PSYCHIATRIC: No history of depression or anxiety. ENDOCRINOLOGIC: + reports of sweating, cold or heat intolerance. No polyuria or polydipsia. ALLERGIES: + History of hives. Vital Signs Vital Signs Vital Signs: 06/13/24 12:26 06/13/24 12:31 06/13/24 12:59 Temperature 97.8 F 98.6 F Temperature Source Temporal Oral Pulse Rate 99 98 Respiratory Rate 16 16 Blood Pressure 134/71 H 134/71 H Blood Pressure Mean 92 92 Pulse Ox 90 93 96 Oxygen Delivery Method Room Air Nasal Cannula Oxygen Flow Rate (L/min) 2 2 06/13/24 13:04 06/13/24 13:29 06/13/24 14:00 Temperature 99.4 F H 98.6 F Temperature Source Core Core Pulse Rate 91 86 Respiratory Rate 15 28 H Blood Pressure 107/70 73/48 L Blood Pressure Mean 82 56 Pulse Ox 96 96 99 Oxygen Delivery Method Nasal Cannula Room Air Nasal Cannula Oxygen Flow Rate (L/min) 3 2 2 06/13/24 14:00 06/13/24 14:14 06/13/24 15:00 Temperature 98.6 F Temperature Source Core Pulse Rate 81 85 79 Respiratory Rate 28 H 38 H Blood Pressure 73/48 L 77/48 L 73/41 L Blood Pressure Mean 56 57 51 Pulse Ox 99 94 Oxygen Delivery Method Nasal Cannula Nasal Cannula Oxygen Flow Rate (L/min) 2 06/13/24 16:00 06/13/24 17:00 06/13/24 18:00 Temperature 97.9 F 97.1 F L 96.3 F L Temperature Source Core Core Core Pulse Rate 89 77 73 Respiratory Rate 20 H 20 H 17 Blood Pressure 79/51 L 74/44 L 75/48 L Blood Pressure Mean 60 54 57 Pulse Ox 98 96 98 Oxygen Delivery Method Nasal Cannula Nasal Cannula Nasal Cannula Oxygen Flow Rate (L/min) 3 3 3 06/13/24 18:08 06/13/24 18:23 06/13/24 18:30 Temperature 96.4 F L 96.5 F L 96.4 F L Temperature Source Core Core Core Pulse Rate 71 74 71 Respiratory Rate 17 17 17 Blood Pressure 70/44 L 67/43 L 77/42 L Blood Pressure Mean 52 51 53 Pulse Ox 98 98 98 Oxygen Delivery Method Nasal Cannula Nasal Cannula Nasal Cannula Oxygen Flow Rate (L/min) 3 3 3 06/13/24 18:52 06/13/24 18:56 06/13/24 20:00 Temperature 97.7 F L Temperature Source Core Pulse Rate 71 80 80 Respiratory Rate 14 Blood Pressure 64/42 L 75/55 L 73/30 L Blood Pressure Mean 49 61 44 Pulse Ox 97 Oxygen Delivery Method Nasal Cannula Oxygen Flow Rate (L/min) 3 06/13/24 20:01 06/13/24 20:14 06/13/24 20:18 Temperature 97.7 F L 97.7 F L Temperature Source Core Core Pulse Rate 81 80 79 Respiratory Rate 16 17 Blood Pressure 84/60 L 83/53 L 88/60 L Blood Pressure Mean 68 63 69 Pulse Ox 96 97 Oxygen Delivery Method Oxygen Flow Rate (L/min) 3 3 06/13/24 20:31 06/13/24 21:00 06/13/24 21:51 Temperature 97.6 F L 99.6 F H Temperature Source Core Core Pulse Rate 71 71 89 Respiratory Rate 17 18 Blood Pressure 95/56 L 93/60 86/55 L Blood Pressure Mean 69 71 65 Pulse Ox 98 92 Oxygen Delivery Method Room Air Nasal Cannula Oxygen Flow Rate (L/min) 3 06/13/24 21:58 06/13/24 22:00 Temperature 99.8 F H 99.9 F H Temperature Source Core Core Pulse Rate 90 Respiratory Rate 16 Blood Pressure 105/52 L Blood Pressure Mean 69 Pulse Ox 94 Oxygen Delivery Method Nasal Cannula Oxygen Flow Rate (L/min) 3 Weight Weight: 150 lb 4 oz Body Mass Index (BMI) 25.0 Physical Exam Narrative Physical Examination: General: Awake, alert, oriented x 3, notes patient is improved since initial ED arrival, still remains in Trendelenburg with pressors running, fatigued and ill-appearing. Skin: Normal color, normal turgor, no icterus, no cyanosis except for very stage ecchymoses, abrasions, stasis disease bilateral lower extremity, right neck with ecchymoses/no bleeding status post right IJ temp. HEENT: AT/NC, EOMI, PERRLA, see skin, dry MM, no carotid bruits or JVD noted. Lungs: Diminished, greater bases, mild increased respiratory rate but no distress, no rales, ronchi or wheezing. Heart: Currently regular rate and rhythm; no gallop, rub audible. Abdomen: Soft, NTTP, ND, hypoactive BS, no appreciated HSM. Extremities: No cyanosis, no clubbing, mild generalized edema however more pronounced in the right upper extremity with pitting hand to approximately with patient and reporting recent DVT to the wrist right upper extremity. Neurological: Patient awake, alert, oriented as noted, cognitive function improved since initial ED arrival, suspect nearing intact; pupils equally reactive to light and accommodation, cranial nerves gross normal, moving all 4 extremities, no focal deficits, strength severely globally decreased secondary to acute presentation. Psychiatric: Affect appears flat, fatigued, ill-appearing no acute evidence of depressive or anxiety feelings. Results Lab / Micro Data 06/13/24 13:00 06/13/24 13:31 Labs: Laboratory Results - last 24 hr 06/13/24 13:00: WBC 11.0, RBC 2.52 L, Hgb 7.3 L, Hct 23.8 L, MCV 94.4 H, MCH 29.0, MCHC 30.7 L, RDW Std Deviation 54.4 H, RDW Coeff of Adamaris 15.9 H, Plt Count 72 L, MPV 9.6, Immature Gran % (Auto) 0.800, Neut % (Auto) 87.4 H, Lymph % (Auto) 4.9 L, [place] % (Auto) 6.5, Eos % (Auto) 0.2, Baso % (Auto) 0.2, Absolute Neuts (auto) 9.6 H, Absolute Lymphs (auto) 0.54 L, Nucleated RBC % 0, Differential Comment SCANNED, Platelet Estimate MOD DEC, Hypochromasia 1+, Anisocytosis 1+, Tear Drop Cells 1+, Ovalocytes 2+, Crenated Cell 1+, Acanthocytes (Spur) 1+, Schistocytes RARE, PT 29.7 H, INR 2.8, APTT 50.3 H, Sodium Cancelled, Potassium Cancelled, Chloride Cancelled, Carbon Dioxide Cancelled, Anion Gap Cancelled, BUN Cancelled, Creatinine Cancelled, Estim Creat Clear Calc Cancelled, Est GFR (MDRD) Af Amer Cancelled, Est GFR (MDRD) Non-Af Cancelled, BUN/Creatinine Ratio Cancelled, Glucose Cancelled, Lactic Acid 2.4 H* , Calcium Cancelled, Total Bilirubin Cancelled, AST Cancelled, ALT Cancelled, Alkaline Phosphatase Cancelled, Troponin I High Sens Cancelled, Total Protein Cancelled, Albumin Cancelled, Globulin Cancelled, Albumin/Globulin Ratio Cancelled 06/13/24 13:03: Urine Color Yellow, Urine Clarity Turbid, Urine pH 6.0, Ur Specific [place] 1.015, Urine Protein 500 H, Urine Glucose (UA) Normal, Urine Ketones Negative, Urine Occult Blood 250 H, Urine Nitrite Positive H, Urine Bilirubin Negative, Urine Urobilinogen Normal, Ur Leukocyte Esterase 500 H, Urine RBC 25-50 SEEN, Urine WBC >100 SEEN, Ur Squamous Epith Cells 0-5 SEEN, Ur Renal Epithelial Cell 5-10 SEEN, Urine Bacteria 2+, Urine Mucus Not Reportable 06/13/24 13:20: POC Glucose 92 06/13/24 13:31: Sodium 137, Potassium 4.1, Chloride 107, Carbon Dioxide 24.0, Anion Gap 6, BUN 43 H, Creatinine 3.39 H, Estim Creat Clear Calc 21.42, Est GFR (MDRD) Af Amer 24 L, Est GFR (MDRD) Non-Af 20 L, BUN/Creatinine Ratio 12.7, Glucose 91, Calcium 8.9, Total Bilirubin 0.70, AST 89 H, ALT 15 L, Alkaline Phosphatase 57, Troponin I High Sens 33501 H*, Total Protein 4.5 L, Albumin 2.2 L, Globulin 2.3, Albumin/Globulin Ratio 1.0 06/13/24 17:21: Lactic Acid 1.3 Micro: Microbiology 06/13/24 12:38 Mucosa - Nose SARS-CoV-2, Influenza & RSV (PCR) - Final Imaging Radiology Impression Brain CT 06/13/24 12:49 IMPRESSION: 1. No acute intracranial process. 2. Mild sinus disease. Electronically Signed: Luis E Morillo MD at 13:57 EDT , Chest X-Ray 06/13/24 12:49 IMPRESSION: No significant change since the previous exam. Electronically Signed: Luis E Morillo MD at 13:59 EDT , Chest X-Ray 06/13/24 15:55 IMPRESSION: Bilateral airspace disease stable. Electronically Signed: Estiven Pathak MD at 16:50 EDT , Assessment & Plan Assessment/Plan (1) Septic shock: PLAN: Plan The patient is a 54 y/o M w/ PMHx: PVD/PAD, VIC, COPD, Hx ESRD s/p renal Txp now with CKD stage IV per GFR trending, HTN, HLD, Chronic anemia/iron deficiency anemia/AOCD, Chronic thrombocytopenia, CAD s/p CABG x 4, GERD, Hx VTE (DVT, PE), Chronic neurogenic bladder, Former tobacco use who presents to the [facility] ED on 06/13/2024 with history of recently being discharged from [facility] 2 days prior with sepsis at that time secondary to acute complicated renal infection/UTI in the setting of renal transplant now presenting with significant fever starting the evening prior with temperature up to 101.3 with increased confusion, lethargy, dyspnea which is now worse with exhaustion as well as nausea without emesis prompting to bring patient back in for evaluation. #1. Acute Septic Shock secondary to Acute Complicated UTI with known Neurogenic bladder: Patient with evidence of sepsis-induced organ dysfunction/tissue hypoperfusion and sepsis induced hypotension despite adequate fluid administration with ED initiated NEP, BSA. Pending transfer to ICU. In the interim until bed available given prolonged delay, will admit patient to the ICU, maintain on cardiac monitoring, continue IVF bolus per protocol (30 ml/kg within 3 hours of initial septic shock presentation), trend LA per facility protocol. Will maintain on IV abx regimen w/ vanc and zosyn w/ pending MRSA screen. UCx pending, Bld Cx x 2 obtained in the ED within 3 hours of severe sepsis presentation, drawn prior to abx initiation. Will continue IV NEP with the ED physician as noted plan to place IO access as unable to obtain access elsewhere and several attempts have been made. Given severity of presentation and immunosuppressed status on steroids status post transplant will use stress dose steroids. Will plan re-assessment of patient and volume status as well as tissue perfusion within 6 hours of initial severe sepsis and/or septic shock presentation. ICU physician consulted, pending. Additionally once patient is stable may benefit from CT abdomen and pelvis to further assess to assure no concerning pathology including calculi/obstructive process. PT/OT/CM consulted. #2. Acute NSTEMI, demand type II w/ underlying CAD status post CABG x 4: Admission troponin 14802, EKG with no acute evidence of ischemia but significant underlying cardiac history, likely secondary to demand given high perfusion with septic presentation as noted above, will continue telemetry monitoring, continue to cycle cardiac enzymes, magnesium level requested, echocardiogram requested, if patient does not transition to [facility] in a timely manner we will involve cardiology, patient chronically anticoagulated with Eliquis. Given his current presentation at next dose due will hold Eliquis and transition to heparin drip with close continued platelet monitoring in case of any intervention needs at tertiary [facility]. #3. Hx ESRD s/p renal Txp now with CKD stage IV per GFR trending: Admission BUN/creatinine 43/3.39, GFR 20, creatinine clearance 21.4, or recent baseline creatinine since May 08 0.6-4.0, most recently prior to this 05/24/24 creatinine 2.65 but appears to be vacillating and prior to this 1.3-2.4 slowly trending upward, continue treatments as noted above, certainly hypoperfusion in the setting of renal transplant high risk, awaiting transfer bed at tertiary facility, trend CMP. Will very cautiously continue tacrolimus although low threshold to obtain level and decrease by half, holding mycophenolate given infectious presentation as noted above. Given severity of presentation will utilize stress dose steroids. #4. PVD/PAD: Patient with significant vasculopath history with extensive peripheral vascular disease with multiple failed AV fistulas to both upper extremities as well as an occluded right iliac status post right to left femoral femoral bypass as well as intervention, given this unfortunately not a candidate for femoral line placement, as noted we will plan to hold Eliquis with transition to heparin drip at next dose due in case of any intervention needs at tertiary facility. Will continue statin therapy, holding all hypertensive regimen. #5. Hypertension: As noted septic presentation, holding all hypertensive regimen. #6. Hyperlipidemia: We will continue patient on statin therapy. #7. Chronic anemia, macrocytic/AOCD/iron deficiency anemia: Admission hemoglobin 7.3, MCV 94.4, baseline hemoglobin noted prior 7-9, stable, continue to trend, continue iron supplementation #8. Chronic thrombocytopenia, unclear etiology: Admission platelets 72, baseline noted prior 7-100, stable, continue to trend. #9. GERD: Continue patient on PPI. #10. History of VTE: Patient with history DVT, PE, recent diagnosis of right upper extremity DVT with positive duplex at per discussion with patient and his spouse as notable swelling to this right upper extremity, as noted plan to hold Eliquis at next dose due and transition to heparin drip as noted. #11. Former tobacco use: Encourage continued tobacco cessation. #12. VIC: CPAP nightly. #13. Chronic COPD: Will maintain on oxygen with wean as tolerated to room air, continue ATC duonebs, PRN albuterol, HOB, IS parameters. #14. DVT prophylaxis: As noted will hold Eliquis at next dose due and transition to heparin drip. #15. CODE status: Patient HCPOA and living will are not in place however his who is present he notes would be his medical decision-maker if necessary. Discussed CODE status at length including difference between FULL code, DNR-CCA and DNR-CC status. Following discussions about the differences in these status, requested Full Code status. Discussed his extensive medical history and that if something life-threatening were to occur the likelihood of a good outcome is low to which him and his understand. Advanced Care Planning Face to Face Time: 16 minutes. Charges/Coding Visit Charges Inpatient E&M: 12242 Init Hosp L3 Procedures Hospitalists Procedures: 51604 Advncd Care Plan 30 Min
[2024-06-13] MEDS: Lidocaine 1% (20 ml mdv) 20 ML Vial 10 ML INFILT (23:36)
[2024-06-13] MEDS: fentaNYL 100 MCG/2 ML Ampul 25 MCG IV (23:42)
--- NOTE | 2024-06-13 23:47 | ED.RN ---
THIS NURSE ATTEMPTED TO CALL REPORT TO ICU. THIS NURSE WAS TOLD BY [facility] THAT THEY WILL CALL BACK WHEN THE NURSE GETS BACK.
[2024-06-14] VITALS (26 sets, daily range): BP systolic 73–103; BP diastolic 43–87; PULSE 74–101; RESP 9–19; TEMP 36.6–38.7; O2SAT 91–99; BMI 25.8
[2024-06-14] MEDS: Lactated Ringers 1,000 ML 999 ML IV ×2 (00:55→01:56)
[2024-06-14] MEDS: Piperacil/Tazobactam 3.375 GM in 0.9% Normal Saline (50mL MB+) 50 ML IV ×2 (01:26→06:32)
[2024-06-14] MEDS: Hydrocortisone Sod Succinate 100 MG/2 ML Vial 50 MG IV ×2 (01:29→06:32)
--- NOTE | 2024-06-14 01:52 | CPS ---
Patient refused PAP therapy for night time use
[2024-06-14] MEDS: Vancomycin HCl 1,750 MG in 0.9% Normal Saline (500mL Bag) 500 ML 250 MG IV (01:59)
--- NOTE | 2024-06-14 02:17 | CON.PCM.CC_ITS ---
HPI Consult Data Date of Consult: 06/14/24 HPI Narrative Reason for Consultation: Septic shock and UTI HPI Narrative: Patient is a 54 y/o WM with a hx of PVD/PAD, VIC, COPD, Hx ESRD s/p renal Txp now with CKD stage IV, HTN, HLD, Chronic anemia/iron deficiency anemia/AOCD, Chronic thrombocytopenia, CAD and GERD who presents to the ER with fevers, lethargy and SOB. Labs in the ER showed UA that was c/w an UTI. The patient was diagnosed with septic shock 2/[address] of Head was unremarkable. He was then admitted to the ICU. I was subsequently consulted. On interview, the patient was slow to respond but lucid. He stated that he was doing okay. He was on levophed (10) and was getting a bolus of NS. He was on 2 LPM of O2. Overall, He stated that he was doing okay. He had no complaints. [facility] Medical History Heart attack PVD (peripheral vascular disease) End stage renal disease residential systemic steroid user Pulmonary embolism Neurogenic bladder Hyperparathyroidism Hyperhomocystinemia GERD (gastroesophageal reflux disease) DVT (deep venous thrombosis) Depression Claudication VIC (obstructive sleep apnea) Chronic obstructive pulmonary disease (COPD) Chronic kidney disease, stage 3 Home Medications ?Medication ?Instructions ?Recorded ?Last Taken ?Type doxazosin 8 mg tablet (Cardura) 4 mg PO DAILY BLADDER 02/21/14 07/21/19 History mycophenolate mofetil 500 mg tablet 500 mg PO BID ANTI-REJECTION 02/21/14 07/21/19 History omeprazole 20 mg capsule,delayed 20 mg PO DAILY ACID REFLUX 02/21/14 07/21/19 History release magnesium oxide 400 mg (241.3 mg 400 mg PO BID SUPPLEMENT 12/25/17 07/21/19 History magnesium) tablet (MgO) atorvastatin 80 mg tablet 80 mg PO DAILY cholesterol 12/30/17 07/21/19 History tacrolimus 0.5 mg capsule,extended 2 mg PO DAILY 10/04/21 Unknown History release 24 hr (Astagraf XL) acetaminophen 500 mg tablet 1,000 mg PO Q8 PRN fever or pain 11/15/23 Unknown History amlodipine 5 mg tablet (Norvasc) 5 mg PO DAILY 11/15/23 Unknown History albuterol sulfate 90 mcg/actuation 1 - 2 puff inhalation Q4H PRN PRN 11/20/23 Unknown Rx aerosol inhaler Shortness Of Breath ##1 ferrous sulfate 325 mg (65 mg 325 mg PO DAILY 05/19/24 Unknown History iron) tablet gabapentin 300 mg capsule 300 mg PO TID PRN pain 05/19/24 Unknown History ipratropium 0.5 mg-albuterol 3 mg 3 ml inhalation Q6H PRN PRN 05/19/24 Unknown History (2.5 mg base)/3 mL nebulization wheezing soln prednisone 5 mg tablet 5 mg PO DAILY 05/19/24 Unknown History apixaban 5 mg tablet 5 mg PO BID 06/13/24 Unknown History epoetin sridevi 4,000 unit/mL 3,600 unit subcut .3xw 06/13/24 Unknown History injection solution (Epogen) Allergy/AdvReac Type Severity Reaction Status Date / Time propoxyphene napsylate (From Allergy Hives Verified 05/18/24 20:11 Darvocet-N) venom-honey bee (bee venom Allergy Hives Verified 05/18/24 20:11 (honey bee)) Family History Father Arthritis Cancer Lung cancer, 1990 CAD (coronary artery disease) Mother CAD (coronary artery disease) Diet 2012 Surgical History S/P femoral-femoral bypass surgery History of quadruple bypass S/P pericardial window creation (~1991) History of lung biopsy (~2007) Renal transplant recipient History of renal transplant Social History (Updated 06/14/24 @ 00:37 by Helena Boggs) household members: spouse housing: house Smoking Status: Former smoker pack-years: 19 Tobacco: How many years used: 15 alcohol intake: never substance use type: does not use ROS Constitutional Constitutional: Reports as per HPI Eyes Eyes: Reports as per HPI and none ENT HEENT: Reports as per HPI and none Cardiovascular Cardiovascular: Reports as per HPI and none Respiratory/Chest Respiratory/Chest: Reports as per HPI Gastrointestinal Gastrointestinal: Reports as per HPI and none Genitourinary Genitourinary: Reports as per HPI and none Musculoskeletal Musculoskeletal: Reports none Integumentary Integumentary: Reports none Neurologic Neurologic: Reports as per HPI and none Psychiatric Psychiatric: Reports as per HPI Endocrine Endocrinology: Reports none Hematologic/Lymphatic Hematologic/Lymphatic: Reports none Allergic/Immunologic Allergic/Immunologic: Reports none Objective Data Objective Data Vital Signs: Vital Signs Last response 3 Temperature 38.3 C H 06/14/24 02:00 Temperature Source Core 06/14/24 02:00 Pulse Rate 101 H 06/14/24 02:00 Respiratory Rate 19 H 06/14/24 02:00 Respiratory Effort Normal 06/14/24 01:45 Blood Pressure 98/62 06/14/24 02:00 Blood Pressure Mean 74 06/14/24 02:00 Blood Pressure Source Monitor 06/14/24 01:30 Blood Pressure Position Supine 06/14/24 02:00 Blood Pressure Location Left Forearm 06/14/24 02:00 Pulse Ox 93 06/14/24 02:00 Oxygen Delivery Method Nasal Cannula 06/14/24 02:00 Oxygen Flow Rate (L/min) 2 06/14/24 02:00 I&O: I&O Last 24 Hours 3 06/13/24 06/13/24 06/14/24 11:59 23:59 11:59 Intake Total 3102.04 / 3102.04 158.41 / 158.41 Balance 3102.04 / 3102.04 158.41 / 158.41 I&O: Total Stay 3 06/13/24 12:25 thru 06/14/24 02:11 Intake Total 3260.45 Balance 3260.45 Current Meds Ordered / Administered: Current meds ordered / Administered 3 Generic Name Dose Route Start Last Admin Trade Name Darrionq PRN Reason Stop Dose Admin Acetaminophen 650 mg 06/14/24 00:24 Acetaminophen 325 Mg Tablet PO Q4H PRN PRN Fever, pain 1-10/10 Al Hydrox/Mg Hydrox/Simethicone 30 ml 06/14/24 00:24 Mag /Aluminum/Simeth Wch Udc 30 Ml Oral.Susp PO Q6H PRN PRN Gastric Burning Albuterol Sulfate 2.5 mg 06/14/24 00:24 Albuterol 2.5 Mg/3 Ml Vial.Neb. INHALATION Q2H PRN PRN Dyspnea, wheezing Albuterol/Ipratropium 3 ml 06/14/24 00:24 Ipratropium/Albuterol Sulfate 3 Ml Ampul.Neb INHALATION Q6HWA.RT [facility] Aspirin 81 mg 06/14/24 08:00 Aspirin 81 Mg Tab.Chew PO BREAKFAST [facility] Atorvastatin Calcium 80 mg 06/14/24 10:00 Atorvastatin Calcium 80 Mg Tablet PO DAILY [facility] Ferrous Sulfate 325 mg 06/14/24 12:00 Ferrous Sulfate 325 Mg Tablet PO LUNCH [facility] Guaifenesin 10 ml 06/14/24 00:24 Guaifenesin 10 Ml Udc (200mg/10ml) PO Q4H PRN PRN COUGH Hydrocortisone Sodium Succinate 50 mg 06/14/24 00:24 06/14/24 01:29 Hydrocortisone Sod Succinate 100 Mg/2 Ml Vial IV 50 mg Q6 [facility] Administration Heparin Sodium/Dextrose 25,000 units in 250 mls @ 10 mls/hr 06/14/24 10:00 CONT INF .Q25H [facility] Protocol As Directed Piperacillin Sod/Tazobactam 50 mls @ 12.5 mls/hr 06/14/24 06:00 Sod 3.375 gm/ Sodium Chloride IV Q8 [facility] Vancomycin IV-PHARMACY TO DOSE 500 mls @ 250 mls/hr 06/14/24 00:24 1 each/ Sodium Chloride IV X1 PRN Rx to Dose Protocol Lactated Ringer's 1,000 mls @ 999 mls/hr 06/14/24 00:24 06/14/24 00:55 IV 06/14/24 02:24 999 mls/hr .Q1H1M MARY ELLEN Administration Norepinephrine Bitartrate 8 mg 250 mls @ 9.375 mls/hr 06/14/24 08:00 / Sodium Chloride CONT INF .Q25E22H [facility] Protocol 5 MCG/MIN Vancomycin HCl 1,750 mg/ 535 mls @ 250 mls/hr 06/14/24 01:00 06/14/24 01:59 Sodium Chloride IV 06/14/24 03:08 250 mls/hr X1 ONE Administration Sodium Chloride 250 mls @ 15 mls/hr 06/14/24 00:38 IV .[id number] PRN Additional IVPB Infusion Sodium Chloride 250 mls @ 15 mls/hr 06/14/24 00:38 IV .[id number] PRN Saline Flush Melatonin 3 mg 06/14/24 00:24 Melatonin 3 Mg Tablet PO QHS PRN PRN INSOMNIA Non-Formulary Medication 2 mg 06/14/24 10:00 Tacrolimus [Astagraf Xl] PO DAILY MARY ELLEN Ondansetron HCl 4 mg 06/14/24 00:24 Ondansetron 4 Mg/2 Ml Vial IV Q8H PRN PRN NAUSEA/VOMITING Pantoprazole Sodium 20 mg 06/14/24 10:00 Pantoprazole Sodium 20 Mg Tablet PO DAILY MARY ELLEN Prochlorperazine Edisylate 5 mg 06/14/24 00:24 Prochlorperazine 10 Mg/2 Ml Vial IV Q4H PRN PRN Breakthrough Nausea/Vomiting Senna/Docusate Sodium 2 tablet 06/14/24 00:24 Senna/Docusate Sodium 1 Tablet PO BID PRN PRN Constipation Sodium Chloride 10 - 40 ml 06/14/24 00:38 0.9% Saline Lock 10 Ml Syringe IV UD PRN SALINE FLUSH Physical Exam Const no apparent distress and average body habitus Constitutional Narrative: Mildly lethargic General Appearance: cooperative and comfortable Orientation / Consciousness: awake HEENT normocephalic, head/scalp atraumatic, hearing grossly normal bilaterally, external ears normal, EAC's normal, TM's normal bilaterally, external nose normal, nasal mucous membranes and turbinates normal, moist oral mucous membranes, oropharynx normal, dentition normal and gingiva normal Eyes PERRL, EOMs intact bilaterally, conjunctivae normal, no scleral icterus, no papilledema, normal visual pierson by confrontation and fundi normal bilaterally Neck full ROM, nuchal rigidity, no lymphadenopathy, supple, no meningeal signs, no JVD, thyroid normal, nodes and no carotid bruits Chest inspection of chest normal, palpation of chest normal, inspection of breasts normal and palpation of breasts normal Resp normal respiratory effort, normal air movement, no retractions, no use of accessory muscles, clear to auscultation bilaterally and percussion normal Cardio regular rate, regular rhythm, S1 normal heart sound, S2 normal heart sound, no murmurs, no rub, no gallops, no clicks, no JVD, peripheral pulses 2+ throughout and diaphoretic GI normal to inspection, nondistended, normoactive bowel sounds, soft to palpation, non-tender, non-distended, hepatosplenomegaly, no masses and no bruits Extremity normal to inspection, full ROM, normal capillary refill, no joint enlargement, no clubbing, cyanosis or edema, no calf tenderness and no pedal edema Medical Records Data Attestation: I reviewed the patient's medical records Lab / Micro Data Attestation: I reviewed the patient's lab results. 06/13/24 13:00 06/13/24 13:31 Labs: Laboratory Results - last 24 hr 06/13/24 13:00: WBC 11.0, RBC 2.52 L, Hgb 7.3 L, Hct 23.8 L, MCV 94.4 H, MCH 29.0, MCHC 30.7 L, RDW Std Deviation 54.4 H, RDW Coeff of Adamaris 15.9 H, Plt Count 72 L, MPV 9.6, Immature Gran % (Auto) 0.800, Neut % (Auto) 87.4 H, Lymph % (Auto) 4.9 L, [place] % (Auto) 6.5, Eos % (Auto) 0.2, Baso % (Auto) 0.2, Absolute Neuts (auto) 9.6 H, Absolute Lymphs (auto) 0.54 L, Nucleated RBC % 0, Differential Comment SCANNED, Platelet Estimate MOD DEC, Hypochromasia 1+, Anisocytosis 1+, Tear Drop Cells 1+, Ovalocytes 2+, Crenated Cell 1+, Acanthocytes (Spur) 1+, Schistocytes RARE, PT 29.7 H, INR 2.8, APTT 50.3 H, Sodium Cancelled, Potassium Cancelled, Chloride Cancelled, Carbon Dioxide Cancelled, Anion Gap Cancelled, BUN Cancelled, Creatinine Cancelled, Estim Creat Clear Calc Cancelled, Est GFR (MDRD) Af Amer Cancelled, Est GFR (MDRD) Non-Af Cancelled, BUN/Creatinine Ratio Cancelled, Glucose Cancelled, Lactic Acid 2.4 H* , Calcium Cancelled, Total Bilirubin Cancelled, AST Cancelled, ALT Cancelled, Alkaline Phosphatase Cancelled, Troponin I High Sens Cancelled, Total Protein Cancelled, Albumin Cancelled, Globulin Cancelled, Albumin/Globulin Ratio Cancelled 06/13/24 13:03: Urine Color Yellow, Urine Clarity Turbid, Urine pH 6.0, Ur Specific [place] 1.015, Urine Protein 500 H, Urine Glucose (UA) Normal, Urine Ketones Negative, Urine Occult Blood 250 H, Urine Nitrite Positive H, Urine Bilirubin Negative, Urine Urobilinogen Normal, Ur Leukocyte Esterase 500 H, Urine RBC 25-50 SEEN, Urine WBC >100 SEEN, Ur Squamous Epith Cells 0-5 SEEN, Ur Renal Epithelial Cell 5-10 SEEN, Urine Bacteria 2+, Urine Mucus Not Reportable 06/13/24 13:20: POC Glucose 92 06/13/24 13:31: Sodium 137, Potassium 4.1, Chloride 107, Carbon Dioxide 24.0, Anion Gap 6, BUN 43 H, Creatinine 3.39 H, Estim Creat Clear Calc 21.42, Est GFR (MDRD) Af Amer 24 L, Est GFR (MDRD) Non-Af 20 L, BUN/Creatinine Ratio 12.7, Glucose 91, Calcium 8.9, Total Bilirubin 0.70, AST 89 H, ALT 15 L, Alkaline Phosphatase 57, Troponin I High Sens 70011 H*, Total Protein 4.5 L, Albumin 2.2 L, Globulin 2.3, Albumin/Globulin Ratio 1.0 06/13/24 17:21: Lactic Acid 1.3 Micro: Microbiology 06/13/24 12:38 Mucosa - Nose SARS-CoV-2, Influenza & RSV (PCR) - Final Imaging Radiology Impression Brain CT 06/13/24 12:49 IMPRESSION: 1. No acute intracranial process. 2. Mild sinus disease. Electronically Signed: Luis E Morillo MD at 13:57 EDT , Chest X-Ray 06/13/24 12:49 IMPRESSION: No significant change since the previous exam. Electronically Signed: Luis E Morillo MD at 13:59 EDT , Chest X-Ray 06/13/24 15:55 IMPRESSION: Bilateral airspace disease stable. Electronically Signed: Estiven Pathak MD at 16:50 EDT , Assessment and Plan . Assessment and plan: 1. Renal transplant 2. Septic shock 3. UTI 4. PAD 5. GERD 6. Hyperhomocystinemia 7. VIC 8. Depression 9. COPD -Continue QHS CPAP. -Continue Vanc and Zosyn. -F/U blood and urine cx. -Continue immunosuppressive meds. -Continue to bolus NS as being done and then start LR at 100 cc/hr. -Titrate levophed as needed. Goal MAP > 65. -Check CMP, Mg and CBC tomorrow AM. -NPO. On a heparin GTT. Critical Care Time: 60 mins The entirety of this encounter was done via Telemedicine
[2024-06-14 02:48] LABS: Troponin-I HS 41764 pg/mL (3.0-78.0)
[2024-06-14] MEDS: 0.9% Saline Lock 10 ML Syringe IV ×2 (03:03→09:46)
[2024-06-14 03:16] LABS: Absolute Lymphocyte Count 0.22 X10^3/uL (0.83-4.51); Absolute Neutrophil Count 6.3 X10^3/uL (2.0-7.7); Basophil# 0.01 X10^3/uL; Basophil% 0.1 % (0-1); Eosinophil# 0.04 X10^3/uL; Eosinophils% 0.6 % (0-5); Hemoglobin 7.2 g/dL (13.0-16.5); Lymphocyte # 0.22 X10^3/ul (0.83-4.51); Lymphocyte % 3.1 % (19-41); Mean Corpuscular Hgb 28.6 pg (27.0-32.0); Mean Corpuscular Volume 95.2 fL (80-94); Mean Platelet Vol. 10.4 fl (6.2-12.0); Monocyte# 0.45 X10^3/uL; Monocyte% 6.3 % (0-10); NRBC Flagged by Analyzer 0 % (0-5); Neutrophil % 88.8 % (47-70); POSITIVE COUNT YES; POSITIVE DIFFERENTIAL YES; Platelet Count 53 K/mm3 (150-450); RBC Distribution Width CV 16.2 % (11.6-14.6); Red Blood Count 2.52 M/mm3 (4.6-6.2); White Blood Count 7.1 K/mm3 (4.4-11.0)
[2024-06-14 03:32] LABS: ALB/GLOB Ratio 0.9 RATIO (0.9-2.4); AST(SGOT) 109 U/L (15-37); Alanine Aminotransfer ALT/SGPT 22 U/L (16-61); Alkaline Phosphatase 55 U/L (45-117); Anion Gap 7 (5-15); BUN 41 mg/dL (7-18); BUN/Creat Ratio 13.1 RATIO (10-20); Calcium,Total 8.3 mg/dL (8.5-10.1); Chloride 107 mmol/L (98-107); Creatinine, Serum 3.14 mg/dL (0.70-1.30); EST Glomerular Filtration Rate 22 mL/min (>60); Est Glom Filt Rate - Afr Amer 27 mL/min (>60); Estimated Creatinine Clearance 23.12 ml/min; Globulin 2.3 g/dL (2.2-4.2); Glucose 62 mg/dL (74-106); Potassium 4.6 mmol/L (3.5-5.1); Protein, Total 4.3 g/dL (6.4-8.2); Sodium Level 136 mmol/L (136-145)
[2024-06-14 03:51] LABS: Troponin-I HS 38214 pg/mL (3.0-78.0)
--- NOTE | 2024-06-14 04:12 | PCM.RX.CS ---
Consult Antibiotic Management Pharmacy has been consulted to manage selected antibiotic: Vancomycin Type of Intervention Type of Consult: New start Suspected Infection Suspected Infection: Sepsis Labs Labs: Sodium 136 mmol/L (136-145) 06/14/24 03:01 Potassium 4.6 mmol/L (3.5-5.1) 06/14/24 03:01 Chloride 107 mmol/L (98-107) 06/14/24 03:01 Carbon Dioxide 22.0 mmol/L (21.0-32.0) 06/14/24 03:01 Anion Gap 7 (5-15) 06/14/24 03:01 BUN 41 mg/dL (7-18) H 06/14/24 03:01 Creatinine 3.14 mg/dL (0.70-1.30) H 06/14/24 03:01 Est GFR (MDRD) Af Amer 27 mL/min (>60) L 06/14/24 03:01 Est GFR (MDRD) Non-Af 22 mL/min (>60) L 06/14/24 03:01 BUN/Creatinine Ratio 13.1 RATIO (10-20) 06/14/24 03:01 Glucose 62 mg/dL (74-106) L 06/14/24 03:01 Microbiology Microbiology: Microbiology 06/13/24 12:38 Mucosa - Nose SARS-CoV-2, Influenza & RSV (PCR) - Final Dosing Weight Weight used for dosin.5 kg Estimated Creatinine Clearance Estimated Creatinine Clearance: 23ml/min Goal Trough Goal Trough: 15-20 mcg/mL Pharmacy Plan for Drug Dosing Pharmacy Plan for Drug Dosing: NEW START IV VANCOMYCIN Consulting Physician: Dr. Bartlett Indication: UTI/Sepsis Goal Trough: 15-20 SrCr: 3.14 CrCl: 23 ml/min Comments: pt received a 1750mg x1 loading dose on 06/14/24 at 0159 Vancomycin Dose: pt is post renal transplant, and is stage IV kidney failure. recommend renal dosing at this time Pending Level: random level 06/15/24 at 0600 Pharmacy Service will continue to monitor and adjust dosing as required. Date/Time Labs Ordered Labs to be done on [date and time ordered]: random level 06/15/24 at 0600
[2024-06-14] MEDS: Acetaminophen 325 MG Tablet 650 MG PO (04:13)
[2024-06-14] MEDS: Ipratropium/Albuterol Sulfate 3 ML AMPUL.NEB INHALATION (07:26)
--- NOTE | 2024-06-14 07:29 | PCM.PN.HOSP ---
Reason for Visit Reason for Visit: Diagnoses Sepsis, unspecified organism (06/13/24) Severe sepsis with septic shock (06/13/24) Objective Data Objective Data Vital Signs: Vital Signs Temp Pulse Resp BP Pulse Ox O2 Del Method O2 Flow Rate 100.5 F H 85 18 86/63 L 95 Nasal Cannula 2 06/14/24 06:00 06/14/24 07:27 06/14/24 07:27 06/14/24 07:03 06/14/24 07:03 06/14/24 07:03 06/14/24 07:03 Oxygen Flow Rate (L/min) 2 Oxygen Delivery Method Nasal Cannula Weight: 70.5 kg Body Mass Index (BMI) 25.8 Intake & Output: Intake and Output for Last 24 Hours 06/12/24 06/13/24 06/14/24 23:59 23:59 23:59 Intake Total 3102.04 / 3102.04 2908.35 / 2908.35 Output Total 350 / 350 Balance 3102.04 / 3102.04 2558.35 / 2558.35 Lab / Micro Data 06/14/24 03:01 06/14/24 03:01 Labs: Laboratory Results - last 24 hr 06/13/24 13:00: WBC 11.0, RBC 2.52 L, Hgb 7.3 L, Hct 23.8 L, MCV 94.4 H, MCH 29.0, MCHC 30.7 L, RDW Std Deviation 54.4 H, RDW Coeff of Adamaris 15.9 H, Plt Count 72 L, MPV 9.6, Immature Gran % (Auto) 0.800, Neut % (Auto) 87.4 H, Lymph % (Auto) 4.9 L, [place] % (Auto) 6.5, Eos % (Auto) 0.2, Baso % (Auto) 0.2, Absolute Neuts (auto) 9.6 H, Absolute Lymphs (auto) 0.54 L, Nucleated RBC % 0, Differential Comment SCANNED, Platelet Estimate MOD DEC, Hypochromasia 1+, Anisocytosis 1+, Tear Drop Cells 1+, Ovalocytes 2+, Crenated Cell 1+, Acanthocytes (Spur) 1+, Schistocytes RARE, PT 29.7 H, INR 2.8, APTT 50.3 H, Sodium Cancelled, Potassium Cancelled, Chloride Cancelled, Carbon Dioxide Cancelled, Anion Gap Cancelled, BUN Cancelled, Creatinine Cancelled, Estim Creat Clear Calc Cancelled, Est GFR (MDRD) Af Amer Cancelled, Est GFR (MDRD) Non-Af Cancelled, BUN/Creatinine Ratio Cancelled, Glucose Cancelled, Lactic Acid 2.4 H*, Calcium Cancelled, Total Bilirubin Cancelled, AST Cancelled, ALT Cancelled, Alkaline Phosphatase Cancelled, Troponin I High Sens Cancelled, Total Protein Cancelled, Albumin Cancelled, Globulin Cancelled, Albumin/Globulin Ratio Cancelled 06/13/24 13:03: Urine Color Yellow, Urine Clarity Turbid, Urine pH 6.0, Ur Specific [place] 1.015, Urine Protein 500 H, Urine Glucose (UA) Normal, Urine Ketones Negative, Urine Occult Blood 250 H, Urine Nitrite Positive H, Urine Bilirubin Negative, Urine Urobilinogen Normal, Ur Leukocyte Esterase 500 H, Urine RBC 25-50 SEEN, Urine WBC >100 SEEN, Ur Squamous Epith Cells 0-5 SEEN, Ur Renal Epithelial Cell 5-10 SEEN, Urine Bacteria 2+, Urine Mucus Not Reportable 06/13/24 13:20: POC Glucose 92 06/13/24 13:31: Sodium 137, Potassium 4.1, Chloride 107, Carbon Dioxide 24.0, Anion Gap 6, BUN 43 H, Creatinine 3.39 H, Estim Creat Clear Calc 21.42, Est GFR (MDRD) Af Amer 24 L, Est GFR (MDRD) Non-Af 20 L, BUN/Creatinine Ratio 12.7, Glucose 91, Calcium 8.9, Total Bilirubin 0.70, AST 89 H, ALT 15 L, Alkaline Phosphatase 57, Troponin I High Sens 33841 H*, Total Protein 4.5 L, Albumin 2.2 L, Globulin 2.3, Albumin/Globulin Ratio 1.0 06/13/24 17:21: Lactic Acid 1.3 06/14/24 00:55: Troponin I High Sens 29956 H* 06/14/24 03:01: WBC 7.1, RBC 2.52 L, Hgb 7.2 L, Hct 24.0 L, MCV 95.2 H, MCH 28.6, MCHC 30.0 L, RDW Std Deviation 56.0 H, RDW Coeff of Adamaris 16.2 H, Plt Count 53 L, MPV 10.4, Immature Gran % (Auto) 1.100 H, Neut % (Auto) 88.8 H, Lymph % (Auto) 3.1 L, [place] % (Auto) 6.3, Eos % (Auto) 0.6, Baso % (Auto) 0.1, Absolute Neuts (auto) 6.3, Absolute Lymphs (auto) 0.22 L, Nucleated RBC % 0, Sodium 136, Potassium 4.6, Chloride 107, Carbon Dioxide 22.0, Anion Gap 7, BUN 41 H, Creatinine 3.14 H, Estim Creat Clear Calc 23.12, Est GFR (MDRD) Af Amer 27 L, Est GFR (MDRD) Non-Af 22 L, BUN/Creatinine Ratio 13.1, Glucose 62 L, Calcium 8.3 L, Total Bilirubin 0.60, AST 109 H, ALT 22, Alkaline Phosphatase 55, Troponin I High Sens 38623 H*, Total Protein 4.3 L, Albumin 2.0 L, Globulin 2.3, Albumin/Globulin Ratio 0.9 Micro: Microbiology 06/13/24 12:38 Mucosa - Nose SARS-CoV-2, Influenza & RSV (PCR) - Final Radiography Diagnostic Testing: Radiology Impression Brain CT 06/13/24 12:49 IMPRESSION: 1. No acute intracranial process. 2. Mild sinus disease. Electronically Signed: Luis E Morillo MD at 13:57 EDT , Chest X-Ray 06/13/24 12:49 IMPRESSION: No significant change since the previous exam. Electronically Signed: Luis E Morillo MD at 13:59 EDT , Chest X-Ray 06/13/24 15:55 IMPRESSION: Bilateral airspace disease stable. Electronically Signed: Estiven Pathak MD at 16:50 EDT Reading Location ID and State: [facility] / [place] Tel , Service support ,
[2024-06-14 07:47] LABS: Magnesium 1.7 mg/dL (1.6-2.6); Phosphorus 3.3 mg/dL (2.5-4.9)
[2024-06-14 07:56] LABS: Troponin-I HS 32867 pg/mL (3.0-78.0)
[2024-06-14] MEDS: Dextrose 10%-Water 250 ML 999 ML IV (08:32)
[2024-06-14 08:34] LABS: Bedside Glucose 56 mg/dL (74-106)
[2024-06-14] MEDS: Norepinephrine 8 MG in 0.9% Normal Saline (250mL Bag) 242 ML 9.4 MG CONT INF (08:35)
[2024-06-14 08:36] LABS: Prothrombin Time (Protime)PT. 48.1 SECONDS (11.7-14.9)
[2024-06-14 08:37] LABS: Partial Thromboplast Time 59.5 Seconds (24.1-36.2)
--- NOTE | 2024-06-14 08:58 | PCM.DC.SUM ---
Providers Date of Admission: 06/13/24 Date of Discharge: 06/14/24 Primary Care Physician: ENIO Gold Consultations 06/14/24 00:24 Consult: Core Analyst / Pulmonary Medicine Routine Consulting Provider: Intensivists/Pulmonary Med Reason for Consult: Septic shock, UTI complicated, NSTEMI EMERGENT Consult: No MD Notified: Yes Date Notified: 06/13/24 Time Notified: 23:29 Method of Notification: Text Reason For Visit: SEPTIC SHOCK, UTI, NSTEMI Diagnosis Discharge Diagnosis (1) Septic shock: Status: Acute Code(s): A41.9 - Sepsis, unspecified organism; R65.21 - Severe sepsis with septic shock Medications at Discharge Home Medications doxazosin 8 mg tablet (Cardura) 4 mg PO DAILY BLADDER 02/21/14 mycophenolate mofetil 500 mg tablet 500 mg PO BID ANTI-REJECTION 02/21/14 omeprazole 20 mg capsule,delayed release 20 mg PO DAILY ACID REFLUX 02/21/14 magnesium oxide 400 mg (241.3 mg magnesium) tablet (MgO) 400 mg PO BID SUPPLEMENT 12/25/17 atorvastatin 80 mg tablet 80 mg PO DAILY cholesterol 12/30/17 tacrolimus 0.5 mg capsule,extended release 24 hr (Astagraf XL) 2 mg PO DAILY 10/04/21 acetaminophen 500 mg tablet 1,000 mg PO Q8 PRN fever or pain 11/15/23 amlodipine 5 mg tablet (Norvasc) 5 mg PO DAILY 11/15/23 albuterol sulfate 90 mcg/actuation aerosol inhaler 1 - 2 puff inhalation Q4H PRN PRN Shortness Of Breath ##1 11/20/23 ferrous sulfate 325 mg (65 mg iron) tablet 325 mg PO DAILY 05/19/24 gabapentin 300 mg capsule 300 mg PO TID PRN pain 05/19/24 ipratropium 0.5 mg-albuterol 3 mg (2.5 mg base)/3 mL nebulization soln 3 ml inhalation Q6H PRN PRN wheezing 05/19/24 prednisone 5 mg tablet 5 mg PO DAILY 05/19/24 apixaban 5 mg tablet 5 mg PO BID 06/13/24 epoetin sridevi 4,000 unit/mL injection solution (Epogen) 3,600 unit subcut .3xw 06/13/24 Hospital Course Summary of Care Provided Minutes Spent on Discharge: 35 Hospital Course: Patient is a 54-year-old gentleman with multiple comorbidities including history of renal transplant, coronary artery disease status post CABG, history of VTE with previous PE and DVT neurogenic bladder, chronic kidney disease stage IV, peripheral arterial disease obstructive sleep apnea COPD hypertension anemia of chronic disorder chronic thrombocytopenia who was discharged from [facility] 2 days prior to his admission who presented with fever and confusion. An assessment of septic shock secondary to complicated acute cystitis was made. Treatment was initiated per protocol with IV fluid resuscitation, broad-spectrum antibiotic therapy as well as pressors patient admitted to the intensive care unit. Arrangement has been made prior to patient being admitted to have patient transferred to [facility]. Patient was also found to have markedly elevated troponin which was attributed to acute non-STEMI type II. Patient was transferred once bed became available for his transfer to [facility]. Physical Exam Narrative GENERAL: Ill looking HEENT: Atraumatic; normocephalic EYES; Anicteric, Normal Conjunctiva NECK; supple, normal thyroid, RESPIRATORY: Diminished to auscultation CARDIOVASCULAR: Regular S1 S2, GI: soft, normoactive bowel sounds, : No Renal angle tenderness; EXTREMITIES: No edema, no clubbing, MUSCULOSKELETAL: no muscle wasting NEURO: Awake; no lateralizing signs. SKIN: No Rash PSYCH; Flat affect Weight / BMI Weight Weight: 70.5 kg Body Mass Index (BMI) 25.8 ABG / Lab / Microbiology Data 06/14/24 03:01 06/14/24 03:01 Laboratory: Laboratory Results - last 24 hr 06/13/24 13:00: WBC 11.0, RBC 2.52 L, Hgb 7.3 L, Hct 23.8 L, MCV 94.4 H, MCH 29.0, MCHC 30.7 L, RDW Std Deviation 54.4 H, RDW Coeff of Adamaris 15.9 H, Plt Count 72 L, MPV 9.6, Immature Gran % (Auto) 0.800, Neut % (Auto) 87.4 H, Lymph % (Auto) 4.9 L, [place] % (Auto) 6.5, Eos % (Auto) 0.2, Baso % (Auto) 0.2, Absolute Neuts (auto) 9.6 H, Absolute Lymphs (auto) 0.54 L, Nucleated RBC % 0, Differential Comment SCANNED, Platelet Estimate MOD DEC, Hypochromasia 1+, Anisocytosis 1+, Tear Drop Cells 1+, Ovalocytes 2+, Crenated Cell 1+, Acanthocytes (Spur) 1+, Schistocytes RARE, PT 29.7 H, INR 2.8, APTT 50.3 H, Sodium Cancelled, Potassium Cancelled, Chloride Cancelled, Carbon Dioxide Cancelled, Anion Gap Cancelled, BUN Cancelled, Creatinine Cancelled, Estim Creat Clear Calc Cancelled, Est GFR (MDRD) Af Amer Cancelled, Est GFR (MDRD) Non-Af Cancelled, BUN/Creatinine Ratio Cancelled, Glucose Cancelled, Lactic Acid 2.4 H*, Calcium Cancelled, Total Bilirubin Cancelled, AST Cancelled, ALT Cancelled, Alkaline Phosphatase Cancelled, Troponin I High Sens Cancelled, Total Protein Cancelled, Albumin Cancelled, Globulin Cancelled, Albumin/Globulin Ratio Cancelled 06/13/24 13:03: Urine Color Yellow, Urine Clarity Turbid, Urine pH 6.0, Ur Specific [place] 1.015, Urine Protein 500 H, Urine Glucose (UA) Normal, Urine Ketones Negative, Urine Occult Blood 250 H, Urine Nitrite Positive H, Urine Bilirubin Negative, Urine Urobilinogen Normal, Ur Leukocyte Esterase 500 H, Urine RBC 25-50 SEEN, Urine WBC >100 SEEN, Ur Squamous Epith Cells 0-5 SEEN, Ur Renal Epithelial Cell 5-10 SEEN, Urine Bacteria 2+, Urine Mucus Not Reportable 06/13/24 13:20: POC Glucose 92 06/13/24 13:31: Sodium 137, Potassium 4.1, Chloride 107, Carbon Dioxide 24.0, Anion Gap 6, BUN 43 H, Creatinine 3.39 H, Estim Creat Clear Calc 21.42, Est GFR (MDRD) Af Amer 24 L, Est GFR (MDRD) Non-Af 20 L, BUN/Creatinine Ratio 12.7, Glucose 91, Calcium 8.9, Phosphorus 3.3, Magnesium 1.7, Total Bilirubin 0.70, AST 89 H, ALT 15 L, Alkaline Phosphatase 57, Troponin I High Sens 70865 H*, Total Protein 4.5 L, Albumin 2.2 L, Globulin 2.3, Albumin/Globulin Ratio 1.0 06/13/24 17:21: Lactic Acid 1.3 06/14/24 00:55: Troponin I High Sens 85564 H* 06/14/24 03:01: WBC 7.1, RBC 2.52 L, Hgb 7.2 L, Hct 24.0 L, MCV 95.2 H, MCH 28.6, MCHC 30.0 L, RDW Std Deviation 56.0 H, RDW Coeff of [place] 16.2 H, Plt Count 53 L, MPV 10.4, Immature Gran % (Auto) 1.100 H, Neut % (Auto) 88.8 H, Lymph % (Auto) 3.1 L, [place] % (Auto) 6.3, Eos % (Auto) 0.6, Baso % (Auto) 0.1, Absolute Neuts (auto) 6.3, Absolute Lymphs (auto) 0.22 L, Nucleated RBC % 0, Sodium 136, Potassium 4.6, Chloride 107, Carbon Dioxide 22.0, Anion Gap 7, BUN 41 H, Creatinine 3.14 H, Estim Creat Clear Calc 23.12, Est GFR (MDRD) Af Amer 27 L, Est GFR (MDRD) Non-Af 22 L, BUN/Creatinine Ratio 13.1, Glucose 62 L, Calcium 8.3 L, Total Bilirubin 0.60, AST 109 H, ALT 22, Alkaline Phosphatase 55, Troponin I High Sens 46111 H*, Total Protein 4.3 L, Albumin 2.0 L, Globulin 2.3, Albumin/Globulin Ratio 0.9 06/14/24 07:01: Troponin I High Sens 12516 H* 06/14/24 08:07: POC Glucose 56 L Microbiology: Microbiology 06/14/24 03:01 Nasal Secretion MRSA (PCR) - Final 06/13/24 12:38 Mucosa - Nose SARS-CoV-2, Influenza & RSV (PCR) - Final Radiography Diagnostic Testing: Radiology Impression Brain CT 06/13/24 12:49 IMPRESSION: 1. No acute intracranial process. 2. Mild sinus disease. Electronically Signed: Luis E Morillo MD at 13:57 EDT , Chest X-Ray 06/13/24 12:49 IMPRESSION: No significant change since the previous exam. Electronically Signed: Luis E Morillo MD at 13:59 EDT , Chest X-Ray 06/13/24 15:55 IMPRESSION: Bilateral airspace disease stable. Electronically Signed: Estiven Pathak MD at 16:50 EDT , D/C Instructions Discharge Diet: Low fat / Low cholesterol Discharge Activity: Return to Normal Activity Call your doctor if you observe: Fever of 101 or Higher, Shortness of breath, Fainting spells and Chest pain Meaningful Use Info Meaningful Use Meaningful Use Diagnoses (Choose all that apply): None applicable Ischemic Stroke Statin Dosing Therapy Reference: STATIN DOSE THERAPY REFERENCE: * Patients > 75 years receive moderate or high dose statin therapy. * Patients 75 years or YOUNGER should receive HIGH intensity statin dose unless contraindicated. You will be required to document reason for non-treatment if statin daily dose does not meet guidelines. HIGH DOSE STATIN THERAPY DAILY Atorvastatin > than or = to 40 mg Rosuvastatin > than or = to 20 mg Amlodipine + Atorvastatin > than or = to 2.5/40 mg Ezetimibe + Simvastatin 10/80 mg Simvastatin 80mg Discharge Plan Admission Admit Date/Time: 06/13/24 23:20 Attending Provider: Joshua Day Primary Care Provider: Diana Tate Consulting Providers: Reggie Pham; Guillaume Grimaldo; Trey Ro; Joshua García; Leobardo Hung; Smooth Dahl; Sanjuana Gann; Fritz Singer; Sebas Lorenzo; Negrita Willis; Juan Miguel Stoner; Fernandez Franco; Gerardo Rodriguez; Rosales Banks; Amol Cuevas; Roger Lindsey; Ranjan Moffett; Ayla Bartlett Discharge Orders/Prescriptions Prescriptions: No Action tacrolimus [Astagraf XL] 0.5 mg capsule,extended release 24hr 2 mg PO DAILY Rx Instructions: must administer in the morning on an empty stomach, 1 hour before or 2 hours after a meal mycophenolate mofetil 500 MG tablet 500 mg PO BID Patient Comments: Anti-rejection medication doxazosin [Cardura] 8 MG tablet 4 mg PO DAILY omeprazole 20 MG capsule 20 mg PO DAILY Patient Comments: acid reflux, gastric irritation magnesium oxide [MgO] 400 MG tablet 400 mg PO BID atorvastatin 80 MG tablet 80 mg PO DAILY Patient Comments: amlodipine [Norvasc] 5 mg tablet 5 mg PO DAILY acetaminophen 500 MG tablet 1,000 mg PO Q8 PRN (Reason: fever or pain) albuterol sulfate 1 INHALER inhaler 1 - 2 puff inhalation Q4H PRN PRN (Reason: Shortness Of Breath) Qty: 1 2RF ferrous sulfate 325 mg (65 mg iron) tablet 325 mg PO DAILY gabapentin 300 mg capsule 300 mg PO TID PRN (Reason: pain) ipratropium-albuterol 0.5 mg-3 mg(2.5 mg base)/3 mL solution for nebulization 3 ml inhalation Q6H PRN PRN (Reason: wheezing) prednisone 5 mg tablet 5 mg PO DAILY Epogen 4,000 unit/mL solution 3,600 unit subcut .3xw apixaban 5 mg tablet 5 mg PO BID Referrals / Follow Up: Diana Tate PA [Primary Care Provider] - Disposition Disposition (needs filled in before D/C Order can be placed): [facility] Charges/Coding Visit Charges Inpatient E&M: 65455 Disch Hosp >30min
[2024-06-14 09:04] LABS: International Normalized Ratio 5.3
[2024-06-14 09:26] LABS: Procalcitonin 49.93 ng/mL (0.00-0.09)
[2024-06-14 09:28] LABS: Bedside Glucose 87 mg/dL (74-106)
== END 2024-06-14 09:50 | disposition short-term general hospital (02) | DRG 871 ==
LOC: ED 23:26 → ICU 23:37
PROVIDERS: Admitting Provider Family Medicine; Emergency Provider Emergency Medicine; PCP Physician Assistant; Visit Provider Internal Medicine
DX: A41.9 Sepsis, unspecified organism (principal); R65.21 Severe sepsis with septic shock; I21.A1 Myocardial infarction type 2; G93.49 Other encephalopathy; I12.0 Hypertensive chronic kidney disease with stage 5 chronic kidney disease or end stage renal disease; I97.638 Postprocedural hematoma of a circulatory system organ or structure following other circulatory system procedure; Z94.0 Kidney transplant status; N30.00 Acute cystitis without hematuria; D63.8 Anemia in other chronic diseases classified elsewhere; J44.9 Chronic obstructive pulmonary disease, unspecified; I73.9 Peripheral vascular disease, unspecified; G47.33 Obstructive sleep apnea (adult) (pediatric); E78.5 Hyperlipidemia, unspecified; K21.9 Gastro-esophageal reflux disease without esophagitis; I25.2 Old myocardial infarction; I25.10 Atherosclerotic heart disease of native coronary artery without angina pectoris; N31.9 Neuromuscular dysfunction of bladder, unspecified; R79.83 Abnormal findings of blood amino-acid level; Z79.52 Long term (current) use of systemic steroids; Z79.01 Long term (current) use of anticoagulants; Z79.899 Other long term (current) drug therapy; Z86.718 Personal history of other venous thrombosis and embolism; Z86.711 Personal history of pulmonary embolism; Z87.891 Personal history of nicotine dependence; Z95.1 Presence of aortocoronary bypass graft; Z95.820 Peripheral vascular angioplasty status with implants and grafts
CPT/HCPCS: 51702; 70450; 71045; 80053; 81001; 82962; 83605; 83735; 84100; 84145; 84484; 85025; 85610; 85730; 87040; 87077; 87086; 87088; 87184; 87186; 87631; 87641; 93005; 94640; 99284; J7030; J7040; J7050; J7120; A4216

== ENCOUNTER 2024-07-25 08:34 | Emergency (ER) | payer OTHER, SELFPAY ==
[2024-07-25 08:35] VITALS: BP 164/83; PULSE 64; RESP 16; TEMP 36.2; O2SAT 99
--- NOTE | 2024-07-25 08:41 | ED.RN ---
Dr. Suggs bedside
--- NOTE | 2024-07-25 08:45 | EKG12_ITS ---
Test Reason : ABD PAIN Blood Pressure : / mmHG Vent. Rate : 061 BPM Atrial Rate : 061 BPM P-R Int : 130 ms QRS Dur : 148 ms QT Int : 446 ms P-R-T Axes : 005 -64 014 degrees QTc Int : 448 ms Normal sinus rhythm Right bundle branch block Left anterior fascicular block Bifascicular block Abnormal ECG Confirmed by Celso Byrd ([id number]), editor book EDSON PEREIRA ([id number]) on 07/27/2024 11:27:35 AM Referred By: Confirmed By:Celso Byrd
--- NOTE | 2024-07-25 08:47 | CT_ITS ---
ACR Level 3 findings have been noted. An addendum which confirms receipt of the report will follow. INDICATION: Epigastric pain, only has one functioning kidney EXAMINATION: CT Abdomen And Pelvis W/O Contrast Injection TECHNIQUE: Helically acquired images were obtained of the abdomen and pelvis without the use of IV contrast. A radiation dose optimization technique was used for this scan. Oral contrast: None. COMPARISON: 05/19/2024 FINDINGS: Evaluation of the solid organs and vascular structures is limited without intravenous contrast. Visualized lung bases: There is intralobular septal thickening. Redemonstration of partially imaged pleural plaque in the left lung base with pleural thickening. Liver: Unremarkable Gallbladder: Hydropic and slightly increased in size when compared to prior on 05/19/2024. There is subtle surrounding fat stranding. The common bile duct appears dilated measuring up to at least 1 cm. Spleen: Unremarkable Pancreas: Unremarkable Adrenal Glands: Unremarkable Kidneys: Status post right nephrectomy. Stable appearance of left lower quadrant transplant kidney with mild perinephric fat stranding and pelviectasis. Vasculature: Severe aortoiliac atherosclerotic disease. Femorofemoral bypass graft. GI Tract: Few proximal small bowel loops demonstrate circumferential wall thickening with surrounding mesenteric fat stranding. Lymphadenopathy: None Peritoneum: No ascites. Bladder: Machado catheter in place. Reproductive organs: The prostate is mildly enlarged. Bones/Soft tissues: Mild scattered degenerative changes of the visualized spine. CT/Abdomen/Pelvis without Cont IMPRESSION: Findings suspicious for possible acute cholecystitis with dilated CBD. Recommend right upper quadrant ultrasound as well as possible MRCP to assess for choledocholithiasis. Mild wall thickening of a few proximal small bowel loops with subtle surrounding inflammatory changes could represent acute enteritis in the correct clinical setting. Stable chronic findings as above. Electronically Signed: Galindo Kim MD at 10:50 EDT ,
--- NOTE | 2024-07-25 08:56 | EX.ED.GENINJ ---
HPI History of Present Illness Chief Complaint: Abd Pain Narrative Narrative: Chief complaint and HPI: Epigastric abdominal pain. History taken by patient, patient's , as well as medical record. I used the hospitalist discharge summaries to obtain a lot of the information. 54-year-old male with history of renal transplant x 2 (Right ~1993; with removal in 2000 & Left 2009); on Mycophenolate Mofetil, Tacrolimus and Prednisone, CKD stage IV, CAD status post CABG, HTN, HLD, HFpEF, history of DVT/PE on Eliquis, neurogenic bladder with Mach[place] presents for evaluation of epigastric abdominal pain. Patient states he had tacos yesterday and woke up this morning at 5 AM with severe epigastric abdominal pain. Patient describes the pain as severe and burning. He denies any history of ulcers. He is on omeprazole for GERD. Patient denies any daily alcohol or ibuprofen use. Endorses nausea and nonbloody vomiting. States he had diarrhea for several days. Patient was recently admitted to the hospital for septic shock secondary to complicated acute cystitis. He was originally admitted to our ICU but then transferred to . He had a NSTEMI. He denies any fever, chills, shortness of breath, chest pain. Patient was on a carbapenem through midline but this was finished on 07/17. Review of systems: See HPI Medications: As listed on the chart Allergies: As listed on the chart PFSH: Per chart Vital signs: As listed on the chart. Reviewed. Physical exam: Gen: A&O x3, uncomfortable secondary to pain Head: Normocephalic, atraumatic Eyes: No sclera icterus, conjunctiva clear ENT: Moist mucous membranes Neck: Trachea midline, No JVD CV: RRR, no murmurs, no peripheral edema, left midline without signs of infection Resp: Lungs CTA BL, no w/r/c GI: Abd soft, non-distended, tender to palpation in the epigastric, no r/r/g : Machado with clear yellow urine Musc: Full ROM, no deformity Skin: Warm, dry Neuro: Alert, oriented, grossly intact, sensation intact Psych: Cooperative, appropriate mood and affect [facility] Medical History (Updated 07/25/24 @ 08:48 by Yuli Hankins) PVD (peripheral vascular disease) End stage renal disease residential systemic steroid user Pulmonary embolism Neurogenic bladder Hyperparathyroidism Hyperhomocystinemia GERD (gastroesophageal reflux disease) DVT (deep venous thrombosis) Depression Claudication VIC (obstructive sleep apnea) Chronic obstructive pulmonary disease (COPD) Chronic kidney disease, stage 3 Home Medications ?Medication ?Instructions ?Recorded ?Last Taken ?Type doxazosin 8 mg tablet (Cardura) 4 mg PO DAILY BLADDER 02/21/14 07/21/19 History mycophenolate mofetil 500 mg tablet 500 mg PO BID ANTI-REJECTION 02/21/14 07/21/19 History omeprazole 20 mg capsule,delayed 20 mg PO DAILY ACID REFLUX 02/21/14 07/21/19 History release magnesium oxide 400 mg (241.3 mg 400 mg PO BID SUPPLEMENT 12/25/17 07/21/19 History magnesium) tablet (MgO) atorvastatin 80 mg tablet 80 mg PO DAILY cholesterol 12/30/17 07/21/19 History tacrolimus 0.5 mg capsule,extended 2 mg PO DAILY 10/04/21 Unknown History release 24 hr (Astagraf XL) acetaminophen 500 mg tablet 1,000 mg PO Q8 PRN fever or pain 11/15/23 Unknown History amlodipine 5 mg tablet (Norvasc) 5 mg PO DAILY 11/15/23 Unknown History albuterol sulfate 90 mcg/actuation 1 - 2 puff inhalation Q4H PRN PRN 11/20/23 Unknown Rx aerosol inhaler Shortness Of Breath ##1 ferrous sulfate 325 mg (65 mg 325 mg PO DAILY 05/19/24 Unknown History iron) tablet gabapentin 300 mg capsule 300 mg PO TID PRN pain 05/19/24 Unknown History ipratropium 0.5 mg-albuterol 3 mg 3 ml inhalation Q6H PRN PRN 05/19/24 Unknown History (2.5 mg base)/3 mL nebulization wheezing soln prednisone 5 mg tablet 5 mg PO DAILY 05/19/24 Unknown History apixaban 5 mg tablet 5 mg PO BID 06/13/24 Unknown History epoetin sridevi 4,000 unit/mL 3,600 unit subcut .3xw 06/13/24 Unknown History injection solution (Epogen) Allergy/AdvReac Type Severity Reaction Status Date / Time propoxyphene napsylate (From Allergy Hives Verified 05/18/24 20:11 Darvocet-N) venom-honey bee (bee venom Allergy Hives Verified 05/18/24 20:11 (honey bee)) Family History Father Arthritis Cancer Lung cancer, 1990 CAD (coronary artery disease) Mother CAD (coronary artery disease) Diet 2012 Surgical History (Updated 06/22/24 @ 00:02 by Khadar Ahmadi) S/P femoral-femoral bypass surgery History of quadruple bypass S/P pericardial window creation (~1991) History of lung biopsy (~2007) Renal transplant recipient History of renal transplant Social History (Updated 06/14/24 @ 00:37 by Helena Boggs) household members: spouse housing: house Smoking Status: Former smoker pack-years: 19 Tobacco: How many years used: 15 alcohol intake: never substance use type: does not use EXAM Physical Exam Const Vital Signs: 07/25/24 08:35 07/25/24 10:35 07/25/24 12:00 Temperature 97.1 F L Temperature Source Temporal Pulse Rate 64 69 67 Respiratory Rate 16 19 H 17 Blood Pressure 164/83 H 122/69 H Blood Pressure Mean 110 86 Pulse Ox 99 94 97 Oxygen Delivery Method Room Air Room Air 07/25/24 14:00 Temperature Temperature Source Pulse Rate 77 Respiratory Rate 18 Blood Pressure 135/77 H Blood Pressure Mean 96 Pulse Ox Oxygen Delivery Method Room Air MDM MDM MDM Narrative Medical decision making narrative: 54-year-old male with multiple comorbidities presents for evaluation of epigastric abdominal pain. Differential diagnosis includes but is not limited to GERD, gastritis, PUD, perforated ulcer, pancreatitis, cholecystitis, choledocholithiasis, cholelithiasis, ACS, gastroenteritis. Pepcid, Dilaudid, Zofran ordered for symptoms. Abdominal pain workup ordered including acute abdomen series and CT abdomen pelvis without contrast. CBC without leukocytosis. Patient has improving anemia of 9.7 was 7.2 and June. He has improving thrombocytopenia at 81. This is up from 53 in June. Kidney function shows renal insufficiency of 1.91. His creatinine is improving from June at 3.14. Lactic acid unremarkable. No transaminitis. Elevation in alk phos at 160. Lipase unremarkable.CT abdomen pelvis shows findings suspicious for acute cholecystitis with dilated CBD. Recommend right upper quadrant ultrasound as well as possible MRCP to assess for choledocholithiasis. Patient has mild wall thickening of a few proximal small bowel loops with subtle surrounding inflammatory changes could represent acute enteritis. Reexamination, patient's pain is controlled. He was updated about the results. Ultrasound the gallbladder ordered. Ultrasound of the gallbladder shows findings suspicious for acute cholecystitis. The gallbladder has a 1.5 cm stone in the neck of the gallbladder. Pericholecystic fluid adjacent to a kink of the gallbladder wall concerning for possible perforation. He has dilation of the common bile duct at 12 mm and intrahepatic biliary ducts concerning for choledocholithiasis. Zosyn ordered with NS bolus. Patient having recurrent pain. Dilaudid ordered. Patient was discussed with our general surgeon Dr. Dick given all of his comorbidities recommends transfer to tertiary care center. Patient was just discharged from . was contacted and patient was discussed with general surgery Dr. Zarate. He accepted transfer but recommends the patient be sent to their ER. I spoke with the ER physician at about the patient and he confirmed understanding. Patient and family were updated about the plan for transfer and they confirmed understanding. 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 This is similar to previous EKG on 06/13. Heart rate 61 Diagnostic: Interpreted by me/EM physician: Increased interstitial markings. No consolidation or effusion. No bowel distention or free air. Impression: 1. Acute cholecystitis with concern of possible perforation 2. Dilation of the common bile duct and intrahepatic biliary ducts concerning for choledocholithiasis 3. Chronic anemia 4. Chronic thrombocytopenia 5. CKD with known renal transplant on immunosuppressants 6. Recent NSTEMI on Eliquis Lab Data Labs: Laboratory Results - last 24 hr 07/25/24 07/25/24 07/25/24 08:57 09:46 11:02 WBC 6.7 RBC 3.30 L Hgb 9.7 L Hct 30.9 L MCV 93.6 MCH 29.4 MCHC 31.4 L RDW Std Deviation 52.8 H RDW Coeff of [place] 15.3 H Plt Count 81 L MPV 11.8 Immature Gran % (Auto) 0.100 Neut % (Auto) 49.3 Lymph % (Auto) 38.5 [place] % (Auto) 8.6 Eos % (Auto) 3.1 Baso % (Auto) 0.4 Absolute Neuts (auto) 3.3 Absolute Lymphs (auto) 2.58 Nucleated RBC % 0 Sodium 145 Potassium 4.4 Chloride 118 H Carbon Dioxide 23.0 Anion Gap 5 BUN 41 H Creatinine 1.91 H Est GFR (MDRD) Af Amer 47 L Est GFR (MDRD) Non-Af 39 L BUN/Creatinine Ratio 21.5 H Glucose 99 Lactic Acid 0.9 Calcium 9.6 Total Bilirubin 0.80 AST 27 ALT 38 Alkaline Phosphatase 160 H Troponin I High Sens 68 57 Total Protein 6.6 Albumin 3.5 Globulin 3.1 Albumin/Globulin Ratio 1.1 Lipase 47 Urine Color Yellow Urine Clarity Clear Urine pH 6.0 Ur Specific [place] 1.015 Urine Protein 100 H Urine Glucose (UA) Normal Urine Ketones Negative Urine Occult Blood 250 H Urine Nitrite Negative Urine Bilirubin Negative Urine Urobilinogen Normal Ur Leukocyte Esterase 25 H Urine RBC 10-25 SEEN Urine WBC 0-5 SEEN Ur Squamous Epith Cells 0 SEEN Urine Bacteria 0 SEEN Urine Mucus 0 SEEN Radiography Diagnostic Testing: Clinical Impression(s) from Imaging Studies Abdomen/Pelvis CT 07/25/24 08:47 IMPRESSION: Findings suspicious for possible acute cholecystitis with dilated CBD. Recommend right upper quadrant ultrasound as well as possible MRCP to assess for choledocholithiasis. Mild wall thickening of a few proximal small bowel loops with subtle surrounding inflammatory changes could represent acute enteritis in the correct clinical setting. Stable chronic findings as above. Electronically Signed: Galindo Kim MD at 10:50 EDT , ADDENDUM: 07/25/24 1109 IMPRESSION: Findings suspicious for possible acute cholecystitis with dilated CBD. Recommend right upper quadrant ultrasound as well as possible MRCP to assess for choledocholithiasis. Mild wall thickening of a few proximal small bowel loops with subtle surrounding inflammatory changes could represent acute enteritis in the correct clinical setting. Stable chronic findings as above. N.B. : Sharifa Victor RN, confirmed on 07/25/2024 11:02:29 (ET) that the healthcare facility has received the radiology report. Electronically Signed: Galindo Kim MD at 10:50 EDT , Acute Abdomen Series 07/25/24 09:14 IMPRESSION: Increased perihilar interstitial markings could represent edema and/or infection. Chronic findings including pleural thickening and a large calcified pleural plaque in the left lower lobe. Electronically Signed: Galindo Kim MD at 11:01 EDT , Gallbladder Ultrasound 07/25/24 11:42 IMPRESSION: Findings suspicious for acute cholecystitis, likely perforated. Dilatation of the CBD and intrahepatic biliary ducts concerning for choledocholithiasis. Consider MRCP. N.B. : The above Results were Read Back by Galindo Kim MD to Miller Larios DO, and understanding confirmed on 07/25/2024 14:45:50 (ET). Electronically Signed: Galindo Kim MD at 15:07 EDT , Discharge Plan Triage Chief Complaint: Abd Pain Other Complaint: Nausea/Vomiting/Diarrhea ED Provider: Miller Larios Dx/Rx/DC Orders Prescriptions: No Action tacrolimus [Astagraf XL] 0.5 mg capsule,extended release 24hr 2 mg PO DAILY Rx Instructions: must administer in the morning on an empty stomach, 1 hour before or 2 hours after a meal mycophenolate mofetil 500 MG tablet 500 mg PO BID Patient Comments: Anti-rejection medication doxazosin [Cardura] 8 MG tablet 4 mg PO DAILY omeprazole 20 MG capsule 20 mg PO DAILY Patient Comments: acid reflux, gastric irritation magnesium oxide [MgO] 400 MG tablet 400 mg PO BID atorvastatin 80 MG tablet 80 mg PO DAILY Patient Comments: amlodipine [Norvasc] 5 mg tablet 5 mg PO DAILY acetaminophen 500 MG tablet 1,000 mg PO Q8 PRN (Reason: fever or pain) albuterol sulfate 1 INHALER inhaler 1 - 2 puff inhalation Q4H PRN PRN (Reason: Shortness Of Breath) Qty: 1 2RF ferrous sulfate 325 mg (65 mg iron) tablet 325 mg PO DAILY gabapentin 300 mg capsule 300 mg PO TID PRN (Reason: pain) ipratropium-albuterol 0.5 mg-3 mg(2.5 mg base)/3 mL solution for nebulization 3 ml inhalation Q6H PRN PRN (Reason: wheezing) prednisone 5 mg tablet 5 mg PO DAILY Epogen 4,000 unit/mL solution 3,600 unit subcut .3xw apixaban 5 mg tablet 5 mg PO BID Primary Care Provider: Diana Tate Referrals: Diana Tate PA [Primary Care Provider] - Print Language: Hebrew
[2024-07-25] MEDS: Ondansetron 4 MG/2 ML Vial IV ×2 (09:05→16:54)
[2024-07-25] MEDS: HYDROmorphone 1 MG/ML Syringe IV (09:06)
--- OUTSIDE RECORDS SUMMARY | 2024-07-25 09:06 | XMS RPT_ITS | CCD ---
Author Organization [facility] CliniSyfl Care Team Providers [employer] Counselor Name Role Phone ESTEFANIA, MELANIE Unavailable Unavailable ESTEFANIA, MELANIE Unavailable Unavailable ESTEFANIA, MELANIE Unavailable Unavailable ESTEFANIA, MELANIE Unavailable Unavailable IMCA Unavailable Unavailable IMCA Unavailable Unavailable DAMEON MACNETH Unavailable Unavailable GUIDO JUAREGUI Unavailable Unavailable Guido Jaureugi Attending Unavailable PROVIDER, UNKNOWN Referring Unavailable Ciryak, Christopher Primary Care Unavailable Guido Jauregui Attending Unavailable PROVIDER, UNKNOWN Referring Unavailable Ciryak, Christopher Primary Care Unavailable Guido Jauregui Attending Unavailable PROVIDER, UNKNOWN Referring Unavailable Ciryak, Christopher Primary Care Unavailable Jittirat, [place] Unavailable Unavailable Boshkos, Christopher Unavailable Unavailable Diana Tate Primary Care Provider Unavaila Diana Will Primary Care Provider Unavaila ble Kindell, Ashley Unavailable Unavailable Jittirat, [place] Unavailable Unavailable Diana Tate Primary Care Provider Unavaila ble Alvarezhkos, Christopher Unavailable Unavailable Unavailable Diana Tate PA-C Primary Care Provider Diana Tate PA-C Primary Care Provider Diana Tate PA-C Primary Care Provider Diana Tate PA-C Primary Care Provider Ledy Ivy MD Unavailable LEDY IVY Referring Unavailable Diana TATE Primary Care Unavailable Diana Tate Primary Care Provider Herman AVENDANON - HARDBOARD PANEL PRINTER, Jennifer Unavailable Taraben MD, Amir Unavailable Bill BURT, [place] Primary Care Provider Camron BURT, Amir Unavailable Diana Tate PA-C Primary Care Provider [phone] VÍCTOR EM Referring Mikayla vailable DANE ORTIZ Primary Care Unavailable JENNIFER SUTTON Attending Unavailable TATE, M Primary Care Unavailable TATE, M Primary Care Unavailable JENNIFER SUTTON Attending Unavailable TATE, M Primary Care Unavailable JENNIFER SUTTON Referring Unavailable HERMAN, JENNIFER Attending Unavailable TATE PA, MR Diana CHACON Primary Care Physician PORSHA BLOOD DO Consulting Unavailable SCHEATZLE DO, FARZANA Admitting Unavailable SCHEATZJIMMY EPRSON, FARZANA Attending Unavailable BEBETO STEEN, MR Diana CHACON Primary Care Unavaila forrest MEJIA CELL MAKER-HARDBOARD PANEL PRINTER, LO Ortiz Consulting Unavaila ble BEBETO STEEN, MR Diana CHACON Attending Unavaila ble BEBETO STEEN, MR Diana CHACON Primary Care Unavaila ble TATE, M INES Primary Care Unavailable KHANH MUSTAFA Referring Unavailable TATE, M INES Primary Care Unavailable SLEIK, KHALED MELOUD Referring Unavailable TATE, M INES Primary Care Unavailable SLEIK, KHALED MELOUD Referring Unavailable TATE, M INES Primary Care Unavailable TATE, M INES Primary Care Unavailable TATE, M INES Attending Unavailable TATE, M INES Primary Care Unavailable TATE, M INES Referring Unavailable TATE, M INES Primary Care Unavailable SELF Referring Unavailable TATE, M INES Primary Care Unavailable MELISSA LAYNE A Attending Unavailable TATE, M INES Primary Care Unavailable MELISSA LAYNE A Referring Unavailable TATE, M INES Primary Care Unavailable TATE, M INES Attending Unavailable TATE, M INES Primary Care Unavailable OZ MANUEL Referring Unavailable TATE, M INES Primary Care Unavailable SLEIK, KHALED MELOUD Attending Unavailable TATE, M INES Primary Care Unavailable TATE, M INES Primary Care Unavailable TATE, M INES Referring Unavailable TATE, M INES Primary Care Unavailable TATE, M INES Attending Unavailable TATE, M INES Primary Care Unavailable TATE, M IENS Referring Unavailable TATE, M INES Primary Care Unavailable Diana TATE Attending Unavailable JANEL SEWELL Attending Unavailable YALAMANCHALI, VARIJA Referring Unavailable BOSHKOS, CHRISTOPHER Primary Care Unavailable VERÓNICA TATUM Attending Unavailable GREGG GARCIA Referring Unavailable BOSHKOS, CHRISTOPHER Primary Care Unavailable TATE PA, MR Diana CHACON Primary Care Unavaila ble KRISTIE, DO VERÓNICA Attending Unavailable TATE PA, MR Diana CHACON Primary Care Unavaila ble KRISTIE, DO VERÓNICA Attending Unavailable TATE PA, MR Diana CHACON Primary Care Unavaila ble KRISTIE, DO VERÓNICA Attending Unavailable TATE PA, MR Diana CHACON Primary Care Unavaila ble KRISTIE, DO VERÓNICA Attending Unavailable MATTHEW SELLERS Attending Unavailable BOSHKOS, CHRISTOPHER Primary Care Unavailable BOSHKOS, CHRISTOPHER Primary Care Unavailable BOSHKOS, CHRISTOPHER Primary Care Unavailable BOSHKOS, CHRISTOPHER Primary Care Unavailable BOSHKOS, CHRISTOPHER Primary Care Unavailable AUDREY TYSON Referring Unavailable BOSHKOS, CHRISTOPHER Primary Care Unavailable YALAMANCHALI, VARIJA Attending Unavailable YALAMANCHALI, VARIJA Admitting Unavailable BOSHKOS, CHRISTOPHER Primary Care Unavailable BOSHKOS, CHRISTOPHER Primary Care Unavailable JEFFREY HAND Admitting Unavailable FROILAN BALDWIN Referring Unavailable BOSHKOS, CHRISTOPHER Primary Care Unavailable NEENA AGARWAL Consulting Unavailable AMBER ARREAGA Attending Unavailable TANA, MARYSE B Admitting Unavailable TERA FAJARDOA B Attending Unavailable ANNE, GANGA Referring Unavailable BOSHKOS, CHRISTOPHER Primary Care Unavailable JOSE, GREGG Admitting Unavailable ANNE, GANGA Referring Unavailable BOSHKOS, CHRISTOPHER Primary Care Unavailable SAMRA OTERO Attending Unavailable USMAN GUDINO Consulting Unavailable BOSHKOS, CHRISTOPHER Primary Care Unavailable Allergies Allergy Classification Reported Allergen(s) Allergy Type Date of Onset Reaction(s) Facility Bee/Wasp/Ant Venom (1 source) bee venom Substance Allergy 8 Hives [facility] (20 sources) BEE STING; Translations: [BEE STING] Propensity to adverse reactions (disorder) 0 Hives, Swelling [facility] Repository (20 sources) PROPOXYPHENE N-ACETAMINOPHEN; Translations: [PROPOXYPHENE N-ACETAMINOPHEN] Propensity to adverse reactions (disorder) 0 Hives [facility] Repository (20 sources) Propoxyphene; Translations: [propoxyphene] Drug Allergy 9 Hives [facility] [place] [address] Work Phone: (12 sources) bee venom Propensity to adverse reactions to drug 0 Hives, Swelling [facility] [place], [place] (4 sources) Bee Stings 1 Allergy to substance Christal Reno Comment on above: bee venom protein fr om honey bees (2 sources) BEE VENOM PROTEIN (HONEY BEE); Translations: [BEE VENOM PROTEIN (HONEY BEE)] Propensity to adverse reactions to drug (disorder) 0 [place] [id number] Repository (1 source) ALLERGIES NOT ON FILE; Translations: [ALLERGIES NOT ON FILE] Propensity to adverse reactions (disorder) [facility] Repository Medications Current Medications Medication Drug Class(es) Dates Sig (Normalized) Sig (Original) acetaminophen 325 mg oral capsule (20 sources) Start: 07-02-2024 take 1 capsule by mouth every four hours as needed for pain Tylenol 325 mg oral capsule Dose : 650 mg =, Oral, q4h, PRN Muscle pain, 0 Refill(s) Start Date: 07/02/24 Status: Ordered Start: 08-29-2015 Acetaminophen 500 MG CAPS take 1-2 tablets prn q 6 hours Quantity: 0 Refills: 0 Ordered: 29-Aug-2015 DO Start : 29-Aug-2015 Active take 1 tablet by sharan th every eight hours as needed acetaminophen (TYLENOL) 500 mg tablet Take 500 mg by mouth every 8 hours as needed. Active Comment on above: Take 500 mg by mouth every 8 hours as needed. [id number] 200 actuat albuterol 0.09 mg/actuat metered dose inhaler (20 sources) beta2-Adrenergic Agonist Start: 12-30-2023 take 2 puff(s) by inhalation every six hours albuterol 90 mcg/actuation inhaler Inhale 2 puffs every 6 hours if needed. 04/15/2024 Active Start: 08-14-2022 End: 12-30-2023 take 2 puff(s) by mouth every six hours as needed albuterol 108 (90 Base) MCG/ACT inhaler INHALE 2 PUFFS BY MOUTH EVERY 6 HOURS NEEDED DIRECTED 08/14/2022 Active Start: 07-23-2022 take 2 puff(s) by in halation every six hours as needed albuterol HFA (PROAIR HFA) 90 mcg/actuation inhaler Inhale 2 Puffs as instructed every 6 hours as needed. 1 Each 0 07/23/2022 Active Start: 09-22-2020 End: 12-10-2022 take 2 puff(s) by inhalation every six hours as needed albuterol HFA (PROAIR HFA) 90 mcg/actuation inhaler Indications: SOB (shortness of breath) Inhale 2 Puffs as instructed every 6 hours as needed. 18 g 2 09/22/2020 12/10/2022 Discontinued Start: 12-06-2019 End: 11-29-2023 take 2.5 mg by inhalation every four hours as needed albuterol (PROVENTIL) 2.5 mg /3 mL (0.083 %) nebulizer solution Use 3 mL via nebulizer every 4 hours as needed for Wheezing/Shortness of Breath. Use over 5-15minutes. 1 Package 2 12/06/2019 08/05/2023 Discontinued Start: 11-29-2019 End: 09-22-2020 take 2 puff(s) by inhalation every six hours as needed albuterol HFA (PROAIR HFA) 90 mcg/actuation inhaler Indications: SOB (shortness of breath) Inhale 2 Puffs as instructed every 6 hours as needed. 1 Inhaler 11/29/2019 09/22/2020 Discontinued Start: 03-04-2015 take 2 puff(s) by in halation every four hours as needed albuterol sulfate HFA 108 (90 Base) MCG/ACT inhaler Inhale 2 puffs into the lungs every 4 hours as needed 0 03/04/2015 Active Start: 03-04-2015 take 2 puff(s) by in halation every four hours as needed albuterol sulfate HFA 108 (90 Base) MCG/ACT inhaler Inhale 2 puffs into the lungs every 4 hours as needed 0 03/04/2015 Active Comment on above: Use 3 mL via nebuliz er every 4 hours as needed for Wheezing/Shortness of Breath. Use over 5-15minutes. Inhale 2 Puffs as in structed every 6 hours as needed. INHALE 2 PUFFS BY MO UTH EVERY 6 HOURS NEEDED DIRECTED albuterol 0.833 mg/ml / ipratropium bromide 0.167 mg/ml inhalation solution (19 sources) Anticholinergic, beta2-Adrenergic Agonist Start: End: take 3 mL by inhalation every six hours as needed ipratropium-albute roL (Duo-Neb) 0.5-2.5 mg/3 mL nebulizer solution Take 3 mL by nebulization every 6 hours if needed. 11/29/2023 Active Comment on above: Inhale 3 mL as instr ucted every 6 hours as needed for wheezing/shortness of breath. albuterol MDI (90 mcg/inh) CFC free inhalation aerosol (4 sources) Start: take 2 puff(s) by inhalation every six hours as needed for wheezing albuterol MDI (90 mcg/inh) CFC free inhalation aerosol 2 puff(s), Inhalation, q6h, PRN as needed for wheezing, # 18 gram(s), 0 Refill(s) Start Date: 06/26/24 Status: Ordered amoxicillin 875 mg / clavulanate 125 mg oral tablet (2 sources) Penicillin-class Antibacterial Start: End: take 1 tablet by mouth twice daily amoxicillin-clavul anate potassium (AUGMENTIN) 875-125 mg per tablet Indications: COPD exacerbation (HCC) Take 1 tablet by mouth two times a day for 10 days. 20 tablet 0 02/11/2024 02/21/2024 Active Start: 11-21-2023 End: 11-24-2023 amoxicillin-clavulanate pota ssium (AUGMENTIN) 875-125 mg per tablet apixaban 5 mg oral tablet (10 sources) Factor Xa Inhibitor Start: 07-02-2024 Eliquis 5 mg oral tablet Dose : 5 mg = 1 tab(s), Oral, BID, # 60 tab(s), 0 Refill(s), Pharmacy: [facility]/pharmacy #[id number], 175.3, cm, 06/26/24 18:04:00 EDT, Height, 64, kg, 07/01/24 6:24:00 EDT, Dosing Weight Start Date: 07/02/24 Status: Ordered Start: 06-11-2024 End: 08-10-2024 take 1 tablet by mouth every twelve hours apixaban (Eliquis) 5 mg tablet Indications: Acute deep vein thrombosis (DVT) of other vein of right upper extremity Take 1 tablet (5 mg) by mouth every 12 hours. 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 90 tablet 3 11/13/2023 11/12/2024 Active Comment on above: Take 80 mg by mouth daily at bedtime. Take 1 tablet by sharan th daily at bedtime. capsaicin 0.25 mg/ml topical cream (5 sources) Start: 06-26-2024 capsaicin 0.025% topical cream Apply 1 sunshine, Topical, BID, # 60 gram(s), 0 Refill(s), Cream, 63.3 Start Date: 06/26/24 Status: Ordered Start: 06-26-2024 capsaicin (Zos trix) 0.025 % cream Indications: NSTEMI (non-ST elevated myocardial infarction) (Multi) Apply topically 2 times a day. 06/26/2024 Active cholecalciferol 0.05 mg oral tablet (20 sources) Vitamin D Start: 07-02-2024 cholecalcifero l 50 mcg (2000 intl units) oral tablet Dose : 100 mcg = 2 tab(s), Oral, Daily, # 60 tab(s), 0 Refill(s), Pharmacy: [facility]/pharmacy #[id number], 175.3, cm, 06/26/24 18:04:00 EDT, Height, kg, 07/01/24 6:24:00 EDT, Dosing Weight Start Date: 07/02/24 Status: Ordered Start: 01-15-2024 End: 01-14-2025 take 2 capsules by mouth once in the morning cholecalciferol (Vitamin D3) 50 mcg (2,000 unit) capsule Indications: Kidney replaced by transplant ([facility]) , Essential hypertension , Vitamin D deficiency , Hyperparathyroidism (Multi) , Benign prostatic hyperplasia without lower urinary tract symptoms Take 2 capsules (100 mcg) by mouth early in the morning.. 180 capsule 3 01/15/2024 01/14/2025 Active Start: 01-15-2024 End: 01-14-2025 Cholecalciferol, Vitamin D3, 50 mcg (2,000 unit) cap Take 100 mcg by mouth. 01/15/2024 01/14/2025 Active cholecalciferol (Vitamin D-3) 50 MCG (2000 UT) capsule 2,000 Units. Active clopidogrel 75 mg oral tablet (10 sources) [id number] Platelet Inhibitor Start: 06-11-2024 End: 06-11-2025 take 1 tablet by mouth once daily clopidogrel (Plavix) 75 mg tablet Indications: Chest pain Take 1 tablet (75 mg) by mouth once daily. 30 tablet 11 06/11/2024 06/11/2025 Active 1 ml denosumab 60 mg/ml prefilled syringe (2 sources) RANK Ligand Inhibitor Start: 11-13-2023 End: 11-12-2024 denosumab (Prolia) 60 mg/mL syringe Indications: Kidney replaced by transplant , Osteoporosis with current pathological fracture, unspecified osteoporosis type, initial encounter , Stage 3b chronic kidney disease ([facility]) Inject 1 mL (60 mg total) under the skin every 6 months. 1 each 1 11/13/2023 11/12/2024 Active doxazosin 4 mg oral tablet (20 sources) alpha-Adrenergic Anne Start: 06-26-2024 take 2 tablets by mouth once daily at bedtime doxazosin (Cardura) 4 mg tablet Indications: Chest pain Take 2 tablets (8 mg) by mouth once daily at bedtime. 60 tablet 3 06/26/2024 Active Start: 08-29-2015 End: 11-12-2024 doxazosin 8 mg oral tablet D ose : 8 mg = 1 tab(s), Oral, qHS, # 30 tab(s), 0 Refill(s), Pharmacy: [facility]/pharmacy #[id number], 175.3, , 06/26/24 18:04:00 EDT, Height, kg, 07/01/24 6:24:00 EDT, Dosing Weight Start Date: 07/02/24 Status: Ordered Start: 03-15-2011 End: 07-07-2024 take 1 tablet by mouth once daily at breakfast Doxazosin (CARDURA XL) 8 mg ORAL 24 hr tablet Take 8 mg by mouth daily with breakfast. 0 03/15/2011 03/06/2022 Discontinued Comment on above: Take 1 tablet by sharan th daily with breakfast. Take 8 mg by mouth d aily with breakfast. TAKE 1 TABLET BY SHARAN TH EVERY DAY WITH BREAKFAST doxycycline hyclate 100 mg oral capsule (4 sources) Tetracycline-class Drug Start: End: take 1 capsule by mouth twice daily doxycycline hyclate (VIBRAMYCIN) 100 mg capsule Indications: COPD with exacerbation (HCC) Take 1 capsule by mouth twice daily for 10 days. 20 capsule 0 03/20/2023 03/30/2023 Active Start: 07-23-2022 End: 07-30-2022 take 1 tablet by mouth twice daily doxycycline (VIBRA-TABS) 100 mg tablet Take 1 tablet by mouth twice daily for 7 days. 14 tablet 0 07/23/2022 07/30/2022 Active Comment on above: Take 1 tablet by sharan th twice daily for 7 days. Take 1 capsule by mo ut twice daily for 10 days. furosemide 40 mg oral tablet (13 sources) Loop Diuretic Start: 04-30-2024 End: 05-07-2025 take 1 tablet by mouth in the morning furosemide (Lasix) 40 MG tablet Take 40 mg by mouth in the morning. 04/30/2024 05/07/2025 Active Start: 03-13-2024 End: 03-13-2025 furosemide (LASIX) 20 mg tab let Take 20 mg by mouth every 48 hours. 03/13/2024 07/07/2024 Discontinued (Discontinued by another Health Care Provider) gabapentin 300 mg oral capsule (20 sources) Anti-epileptic Agent Start: 06-11-2024 End: 06-11-2025 gabapentin 300 mg oral capsule Dose : 300 mg = 1 cap(s), Oral, BID, # 60 cap(s), 0 Refill(s), Pharmacy: [facility]/pharmacy #[id number], PVD (peripheral vascular disease), 175.3, cm, 06/26/24 18:04:00 EDT, Height, 64, kg, 07/01/24 6:24:00 EDT, Dosing Weight Start Date: 07/02/24 Status: Ordered Start: 11-22-2023 End: 07-07-2024 take 1 capsule by mouth three times daily gabapentin (NEURONTIN) 300 mg capsule Take 1 capsule by mouth three times a day for 90 days. 90 capsule 2 11/22/2023 07/07/2024 Discontinued Start: 04-08-2019 End: 09-14-2022 take 2 capsules by mouth three times daily gabapentin (NEURONTIN) 300 mg capsule Indications: Chronic left-sided low back pain with left-sided sciatica Take 2 capsules by mouth three times daily for 180 days. 180 capsule 1 04/08/2019 09/14/2022 Discontinued (Discontinued by Patient) Comment on above: Take 2 capsules by m out three times daily for 180 days. Take 1 capsule by mo [facility] three times a day for 90 days. 24 hr isosorbide mononitrate 60 mg extended release oral tablet (1 source) Nitrate Vasodilator Start: take 1 tablet by mouth once daily isosorbide mononitrate ER (Imdur) 60 mg 24 hr tablet Indications: NSTEMI (non-ST elevated myocardial infarction) (Multi) Take 1 tablet (60 mg) by mouth once daily. Do not crush or chew. 06/27/2024 Active lidocaine 0.04 mg/mg medicated patch (9 sources) Antiarrhythmic, Amide Local Anesthetic Start: 4 lidocaine 4 % patch Indications: NSTEMI (non-ST elevated myocardial infarction) (Multi) Place 1 patch over 12 hours on the skin once daily. Remove & discard patch within 12 hours or as directed by . 06/27/2024 Active Start: 06-26-2024 apply 1 dose topically once da yolie lidocaine 4% patch Dose = 1 patch(es), Topical, qDay, 0 Refill(s) Start Date: 06/26/24 Status: Ordered Start: 09-24-2022 End: 09-24-2022 lidocaine (PF) 10 mg/mL (1 % ) 4 mL injection (XYLOCAINE) Start: 06-07-2022 End: 06-07-2022 lidocaine (PF) 10 mg/mL (1 % ) 4 mL injection (XYLOCAINE) Start: 04-08-2022 End: 05-08-2022 lidocaine urojet 2 % 11 mL t opical gel (XYLOCAINE, GLYDO) Start: 03-01-2020 End: 03-01-2020 lidocaine 2 % injection melatonin 5 mg oral tablet (5 sources) Start: 06-26-2024 Melatonin 5 mg oral tablet Dose : 5 mg = 1 tab(s), Oral, qHS, # 60 tab(s), 0 Refill(s) Start Date: 06/26/24 Status: Ordered meropenem 2 gram solr (4 sources) Start: 06-26-2024 End: 07-15-2024 inject 2000 mg intravenously once daily meropenem 2 gram solr Inject 2,000 mg intravenously once daily. 06/26/2024 07/15/2024 Active metoprolol tartrate 25 mg oral tablet (14 sources) beta-Adrenergi c Anne Start: 07-02-2024 Metoprolol Tartrate 25 mg oral tablet Dose : 25 mg = 1 tab(s), Oral, BID, # 60 tab(s), 0 Refill(s), Pharmacy: [facility]/pharmacy #[id number], 175.3, cm, 06/26/24 18:04:00 EDT, Height, kg, 07/01/24 6:24:00 EDT, Dosing Weight Start Date: 07/02/24 Status: Ordered Start: 07-02-2024 End: 07-03-2024 take 1 tablet by mouth every hour in the morning Metoprolol Tartrate 25 mg oral tablet Start: 07/03/24 8:00:00 AM EDT, Dose = 25 mg, = 1 tab(s), Oral, Hold if HR (bpm) Start Date: 07/03/24 Stop Date: 07/03/24 Status: Completed Start: 06-26-2024 take 1 tablet by sharan th twice daily metoprolol tartrate (Lopressor) 25 mg tablet Indications: NSTEMI (non-ST elevated myocardial infarction) (Multi) Take 1 tablet (25 mg) by mouth 2 times a day. 06/26/2024 Active Start: 08-29-2015 take 3 tablets by mo [facility] twice daily Metoprolol Tartrate 25 MG Oral Tablet TAKE 3 TABLET TWICE DAILY. Refills: 0 Start : 29-Aug-2015 Active mycophenolate mofetil 500 mg oral tablet (20 sources) Start: 11-13-2023 End: 01-14-2025 take 1 tablet by mouth in the morning mycophenolate (Cellcept) 500 MG tablet Take 500 mg by mouth in the morning and 500 mg in the evening. 01/15/2024 01/14/2025 Active Start: 08-29-2015 Mycophenolate Mofetil 500 MG Oral Tablet Take 1 tablet twice daily Quantity: 360 Refills: 3 Ordered: 22-May-2023 Matthew Sellers MD Start : 29-Aug-2015 Active ICD10- Kidney replaced by transplant Z 94.0 PLEASE APPLY GOOD RX XCARD IF INSURANCE DOES NOT PAY Group 33 Bin [id number] [facility]. Decrease the dose. Patient will call when he needs a refill. Start: 08-29-2015 Mycophenolate Mofetil 500 MG Oral Tablet TAKE 2 TABLET Twice daily Quantity: 360 Refills: 3 Ordered: 26-Jul-2021 Matthew Sellers MD Start : 29-Aug-2015 Active ICD10- Kidney replaced by transplant Z 94.0 PLEASE APPLY GOOD RX XCARD IF INSURANCE DOES NOT PAY Group 33 Bin [id number] [facility] Start: 08-29-2015 take 1 tablet by [facility] once daily Mycophenolate Mofetil 500 MG Oral Tablet TAKE 1 TABLET DAILY. Refills: 0 Start : 29-Aug-2015 Active Start: 07-23-2014 End: 07-07-2024 take 2 capsules by mouth twice daily mycophenolate mofetil (CELLCEPT) 250 mg capsule Take 500 mg by mouth twice daily. 0 07/23/2014 07/07/2024 Discontinued (Discontinued by Patient) take 1 capsule by mo [facility] twice daily mycophenolate (CELLCEPT) 250 MG capsule Take 250 mg by mouth 2 times daily 0 Active Comment on above: Take 500 mg by mouth twice daily. nitroglycerin 0.4 mg sublingual tablet (3 sources) Nitrate Vasodilator Start: 12-29-19 18 nitroGLYCERIN (NITROSTAT) 0.4 MG SL tablet up to max of 3 total doses. If no relief after 1 dose, call 911. 25 tablet 3 12/28/2017 Active nystatin 100 unt/mg topical powder (1 source) Polyene Antifungal Start: 06-26-20 nystatin (Mycostatin) 100,000 unit/gram powder Indications: NSTEMI (non-ST elevated myocardial infarction) (Multi) Apply 1 Application topically 2 times a day. 06/26/2024 Active pantoprazole 40 mg delayed release oral tablet (10 sources) Proton Pump Inhibitor Start: 06-27-20 take 1 tablet by mouth once pantoprazole DR (PROTONIX) 40 mg tablet Take 1 tablet by mouth every afternoon. 07/02/2024 Active predniSONE 5 mg oral tablet (20 sources) Start: 02-11-20 End: 02-20-20 predniSONE (DELTASONE) 10 mg tablet Indications: COPD exacerbation (HCC) Take 4 tabs daily for 3 days, then 2 tabs daily for 3 days, then 1 tab daily for 3 days with food. 21 tablet 0 02/11/2024 02/20/2024 Active Start: 11-21-2023 End: 11-25-2023 take 1 tablet by mouth once daily predniSONE (DELTASONE) 20 mg tablet Take 1 tablet by mouth once daily. 0 11/21/2023 11/25/2023 Start: 08-05-2023 End: 08-11-2023 predniSONE (DELTASONE) 10 mg tablet Indications: COPD with exacerbation (HCC) Take by mouth 6 pills on day 1, 5 pills on day 2, 4 pills on day 3, 3 pills on day 4, 2 pills on day 5, 1 pill on day 6 21 tablet 0 08/05/2023 08/11/2023 Active Start: 03-20-2023 End: 03-24-2023 take 2 tablets by mouth once daily at mealtime predniSONE (DELTASONE) 20 mg tablet Indications: COPD with exacerbation (HCC) Take 2 tablets by mouth once daily for 4 days. Take daily with food. 8 tablet 0 03/20/2023 03/24/2023 Active Start: 07-23-2022 End: 07-28-2022 take 2 tablets by mouth once daily predniSONE (DELTASONE) 20 mg tablet Take 2 tablets by mouth once daily for 5 days. 10 tablet 0 07/23/2022 07/28/2022 Active Start: 05-04-2022 predniSONE (DE LTASONE) 10 mg tablet Take 4 tabs daily for 3 days, then 2 tabs daily for 3 days, then 1 tab daily for 3 days with food. 21 tablet 0 05/04/2022 Active Start: 08-29-2015 End: 11-12-2024 take 1 tablet by mouth once daily predniSONE (Deltasone) 5 mg tablet Indications: Kidney replaced by transplant ([facility]) , Essential hypertension , Vitamin D deficiency , Hyperparathyroidism (Multi) , Benign prostatic hyperplasia without lower urinary tract symptoms Take 1 tablet (5 mg) by mouth once daily. 90 tablet 3 11/13/2023 11/12/2024 Active Start: 08-29-2015 take 2 tablets by mo [facility] once daily predniSONE 2.5 MG Oral Tablet TAKE 2 TABLETS EVERY DAY Refills: 0 Start : 29-Aug-2015 Active Comment on above: [facility]. Take 4 tabs daily fo r 3 days, then 2 tabs daily for 3 days, then 1 tab daily for 3 days with food. Take 2 tablets by mo [facility] once daily for 5 days. Take 2 tablets by mo [facility] once daily for 4 days. Take daily with food. Take by mouth 6 pill s on day 1, 5 pills on day 2, 4 pills on day 3, 3 pills on day 4, 2 pills on day 5, 1 pill on day 6 sulfamethoxazole 400 mg / trimethoprim 80 mg oral tablet (20 sources) Dihydrofolate Reductase Inhibitor Antibacterial, Sulfonamide Antimicrobial Start: 2023 End: 2024 take 1 tablet by mouth once daily sulfamethoxazole-trimetho prim (Bactrim) 400-80 mg tablet Indications: Kidney replaced by transplant , Essential hypertension , Vitamin D deficiency , Hyperparathyroidism ([facility]/HCC) , Benign prostatic hyperplasia without lower urinary tract symptoms Take 1 tablet by mouth once daily. 90 tablet 3 11/13/2023 11/12/2024 Active Start: 05-23-2023 End: 07-07-2024 take 1 tablet by mouth once sulfamethoxazole-trimethoprim (BACTRIM) 400-80 mg per tablet Take 1 tablet by mouth every afternoon. 05/23/2023 07/07/2024 Discontinued (Discontinued by another Health Care Provider) Start: 03-15-2011 End: 08-07-2022 take 1 tablet by mouth once daily sulfamethoxazole-trimethoprim (BACTRIM,SEPTRA) 400-80 mg per tablet Take 1 tablet by mouth once daily. 0 03/15/2011 08/07/2022 Discontinued (Course of therapy completed) Comment on above: Take 1 tablet by sharan th once daily. Take 1 tablet by sharan th every afternoon. 24 hr tacrolimus 0.5 mg extended release oral capsule (20 sources) Calcineurin Inhibitor Immunosuppressant Start: 07-07-20 End: 07-07-20 take 1 capsule by mouth every twenty-four hours tacrolimus ER (ASTAGRAF XL) 0.5 mg capsule Indications: H/O kidney transplant Take 3 capsules by mouth every 24 hours. 270 capsule 11 07/07/2024 07/07/2025 Active Start: 12-30-2023 End: 07-07-2024 take 1 capsule by mouth every twenty-four hours tacrolimus ER (ASTAGRAF XL) 1 mg capsule Take 1 capsule by mouth every 24 hours. 0.5mg daily 12/30/2023 07/07/2024 Discontinued Start: 12-30-2023 End: 01-14-2025 take 1 capsule by mouth in the morning tacrolimus ER (Astagraf XL) 1 MG capsule ER Take 1 mg by mouth in the morning. 12/30/2023 01/14/2025 Active Start: 12-30-2023 End: 12-30-2023 take 1 capsule by mouth every twenty-four hours tacrolimus ER (ASTAGRAF XL) 1 mg capsule Take 1 capsule by mouth every 24 hours. 0 12/30/2023 12/30/2023 Discontinued Start: 10-15-2023 End: 10-14-2024 take 1 tablet by mouth once daily in the morning tacrolimus ER (Envarsus XR) 0.75 mg tablet ER Indications: Kidney replaced by transplant ([facility]) Take 2 tablets (1.5 mg) by mouth once daily in the morning. 60 tablet 1 06/27/2024 08/26/2024 Active Start: 09-15-2018 End: 12-30-2023 take 4 capsules by mouth once daily ASTAGRAF XL 0.5 mg capsule Take 2 mg by mouth once daily. 11 09/15/2018 12/30/2023 Discontinued Start: 02-05-2018 take 2 capsules by m outh once daily Astagraf XL 1 MG Oral Capsule Extended Release 24 Hour TAKE 2 CAPSULE Daily Quantity: 180 Refills: 3 Ordered: 22-May-2023 Matthew Sellers MD Start : 05-Feb-2018 Active Start: 02-05-2018 take 2 capsules by m outh once daily ASTAGRAF XL 0.5 mg capsule Take 1 mg by mouth once daily. 11 09/15/2018 Active Start: 02-05-2018 take 1 capsule by mo uth once daily Astagraf XL 1 MG Oral Capsule Extended Release 24 Hour TAKE 1 CAPSULE Daily Quantity: 90 Refills: 3 Ordered: 26-Jul-2021 Matthew Sellers MD Start : 05-Feb-2018 Active Please complete PA, do not send- has to go to [facility]- thanks! Tacrolimus 0.5 M G CP24 Take by mouth 2 times daily 0 Active Comment on above: Take 1 mg by mouth o nce daily. Take 2 mg by mouth o nce daily. Take 1 capsule by mo uth every 24 hours. 0.5mg daily Take 1 capsule by mo uth every 24 hours. traMADol hydrochloride 50 mg oral tablet (6 sources) Opioid Agonist Start: 07-02-2024 End: 07-09-2024 take 1 tablet by mouth every six hours as needed traMADol (ULTRAM) 50 mg tablet Take 50 mg by mouth every 6 hours as needed for pain. 07/02/2024 Active Completed/Discontinued Medications Medication Drug Class(es) Dates Sig (Normalized) Sig (Original) acetaminophen 325 mg / oxyCODONE hydrochloride 5 mg oral tablet (19 sources) Opioid Agonist Start: 02-15-2023 End: 05-27-2023 take 1 tablet by mouth every six hours as needed for pain oxyCODONE-acetamino phen (PERCOCET) 5-325 mg tablet Indications: Postoperative pain Take 1 tablet by mouth every 6 hours as needed for pain. 25 tablet 0 02/15/2023 Active Start: 01-03-2023 End: 01-25-2023 take 1 tablet by mouth every six hours as needed for pain oxyCODONE-acetaminophen (PERCOCET) 5-325 mg tablet Indications: Postoperative pain Take 1 tablet by mouth every 6 hours as needed for pain. 25 tablet 0 01/25/2023 Active Comment on above: Take 1 tablet by sharan every 6 hours as needed for pain. alendronic acid 70 mg oral tablet (20 sources) Bisphosphonate Start: 09-21-20 End: 07-07-20 take 1 tablet by mouth every week alendronate (FOSAMAX) 70 mg tablet Take 1 tablet by mouth once each week. Take with a full glass of water, on an empty stomach; do NOT lie down for 30minutes. 12 tablet 3 09/21/2018 09/14/2022 Discontinued Comment on above: Take 1 tablet by sharan th once each week. Take with a full glass of water, on an empty stomach; do NOT lie down for 30minutes. Take 1 tablet by sharan th one time a week. Take with a full glass of water, on an empty stomach; do NOT lie down for 30minutes. amLODIPine 5 mg oral tablet (20 sources) Dihydropyridine Calcium Channel Anne Start: 12-30-19 End: 07-07-20 take 2 tablets by mouth once daily amLODIPine (NORVASC) 5 mg tablet Take 10 mg by mouth once daily. 12/29/2017 07/07/2024 Discontinued (Discontinued by another Health Care Provider) Start: 12-29-2017 End: 11-12-2024 take 1 tablet by mouth once daily amLODIPine (Norvasc) 5 MG tablet Take 5 mg by mouth daily. 02/19/2023 Active Comment on above: Take 5 mg by mouth o nce daily. aspirin 81 mg delayed release oral tablet (20 sources) Platelet Aggregation Inhibitor, Nonsteroidal Anti-inflammatory Drug Start: 08-29-2015 Aspirin EC 81 MG TBEC TAKE 1 TABLET DAILY. Quantity: 0 Refills: 0 Ordered: 29-Aug-2015 DO Start : 29-Aug-2015 Active Start: 02-20-2010 End: 07-07-2024 ASPIRIN 81 MG TAB Take one(1 ) tablet daily. 0 0 02/20/2010 07/07/2024 Discontinued (Discontinued by another Health Care Provider) Comment on above: Take one(1) tablet d aily. azithromycin 250 mg oral tablet (1 source) Macrolide Antimicrobial Start: End: take 1 tablet by mouth once daily azithromycin (ZITHROMAX) 250 mg tablet Take 1 tablet by mouth once daily. 30 tablet 5 01/18/2020 06/05/2021 Discontinued benzonatate 100 mg oral capsule (1 source) Non-narcotic Antitussive Start: take 2 capsules by mouth every eight hours as needed benzonatate (TESSALON PERLES) 100 mg capsule Take 2 capsules by mouth three times daily as needed. 30 capsule 0 07/23/2022 Active Comment on above: Take 2 capsules by out three times daily as needed. betamethasone 3 mg/ml / betamethasone acetate 3 mg/ml injectable suspension (2 sources) Corticosteroid Start: End: betamethasone acetate-betamethason e sodium phosphate 6 mg injection (CELESTONE) Start: 06-07-2022 End: 06-07-2022 betamethasone acetate-betame thasone sodium phosphate 6 mg injection (CELESTONE) carvedilol 25 mg oral tablet (20 sources) alpha-Adrenergic Anne, beta-Adrenergic Anne Start: 12-28-2017 End: 11-12-2024 take 1 tablet by mouth twice daily at mealtime carvedilol (COREG) 25 mg tablet Take 1 tablet by mouth twice daily with meals. 3 12/28/2017 07/07/2024 Discontinued (Duplicate Entry) Comment on above: Take 1 tablet by sharan twice daily with meals. cephalexin 500 mg oral capsule (4 sources) Cephalosporin Antibacterial Start: 04-08-2022 End: 05-08-2022 cephALEXin 500 mg cap(s) (KEFLEX) cetirizine hydrochloride 10 mg oral tablet (1 source) Histamine-1 Receptor Antagonist Start: 02-06-2021 End: 2022 take 1 tablet by mouth once daily cetirizine (ZYRTEC) 10 mg tablet Take 1 tablet by mouth once daily. 30 tablet 0 02/06/2021 2022 Discontinued (Course of therapy completed) Comment on above: Take 1 tablet by sharan once daily. cyclobenzaprine hydrochloride 10 mg oral tablet (20 sources) Muscle Relaxant Start: 05-04-2022 take 1 tablet by mouth every eight hours as needed cyclobenzaprine (FLEXERIL) 10 mg tablet Take 1 tablet by mouth three times daily as needed for muscle spasm. 21 tablet 0 05/04/2022 Active Comment on above: Take 1 tablet by [facility] three times daily as needed for muscle spasm. 0.3 ml darbepoetin sridevi 0.2 mg/ml prefilled syringe (8 sources) Erythropoiesis-stim ulating Agent Start: 06-29-2024 End: 10-07-2024 inject 0.3 mL by subcutaneous injection every week darbepoetin sridevi (Aranesp) 60 mcg/0.3 mL injection Indications: ESRD s/p DDKT Inject 0.3 mL (60 mcg total) under the skin 1 (one) time per week. Hold for hemoglobin 11 or greater 1.2 mL 11 07/10/2024 07/17/2024 Discontinued (Reorder) dextromethorphan hydrobromide 3 mg/ml / promethazine hydrochloride 1.25 mg/ml oral solution (18 sources) Phenothiazine, Uncompetitive J-xejbim-Z-aspartat e Receptor Antagonist, Sigma-1 Agonist Start: 07-27-2022 End: 12-10-2022 take 5 mL by mouth every six hours as needed for cough Promethazine-DM (PHENERGAN-DM) 6.25-15 mg/5 mL syrup TAKE 5 ML ORALLY EVERY 6 HOURS NEEDED FOR COUGH 0 07/27/2022 12/10/2022 Discontinued Comment on above: TAKE 5 ML ORALLY MONIKA RY 6 HOURS NEEDED FOR COUGH DULoxetine 30 mg delayed release oral capsule (20 sources) Serotonin and Norepinephrine Reuptake Inhibitor Start: 08-09-2018 End: 03-26-2023 take 1 capsule by mouth once daily DULoxetine (CYMBALTA) 30 mg capsule Indications: Radiculopathy, lumbar region , Chronic pain syndrome Take 1 capsule by mouth once daily. 90 capsule 1 08/09/2018 03/26/2023 Discontinued (Other) Comment on above: Take 1 capsule by [facility] once daily. emollients (Eucerin Cream) Cream (4 sources) Start: 07-02-2024 emollients (Eucerin Cream) Cream Apply 1 sunshine, Topical, BID, 0 Refill(s), Cream, 64 Start Date: 07/02/24 Status: Ordered 2 ml fentaNYL 0.05 mg/ml injection (3 sources) Opioid Agonist Start: 03-01-2020 End: 03-01-2020 fentaNYL (SUBLIMAZE) injection ferrous sulfate 325 mg delayed release oral tablet (13 sources) Start: 03-24-2024 End: 03-24-2025 ferrous sulfate 325 mg (65 mg iron) EC tablet Take 1 tablet by mouth. 03/24/2024 07/07/2024 Discontinued (Discontinued by another Health Care Provider) Start: 03-24-2024 End: 03-24-2025 take 1 tablet by mouth in the morning ferrous sulfate 325 (65 Fe) MG EC tablet Take 1 tablet by mouth in the morning. 03/24/2024 03/24/2025 Active fluorouracil 50 mg/ml topical cream (20 sources) Nucleoside Metabolic Inhibitor Start: 03-17-2023 End: 07-07-2024 Fluorouracil 5 % cream 03/17/2023 07/07/2024 Discontinued (Course of therapy completed) Start: 03-17-2023 fluorouracil ( Efudex) 5 % cream APPLY TO LEFT LOWER LIP 2X DAILY FOR 2 WEEKS. WASH HANDS IMMEDIATELY AFTER APPLYING. 03/17/2023 Active Comment on above: APPLY TO LEFT LOWER LIP 2X DAILY FOR 2 WEEKS. WASH HANDS IMMEDIATELY AFTER APPLYING. fluticasone propionate 0.05 mg/actuat metered dose nasal spray (1 source) Corticosteroid Start: 02-07-20 End: 02-19-20 take 2 spray(s) by mouth once daily fluticasone (FLONASE) 50 mcg/actuation nasal spray Use 2 Sprays in each nostril once daily. Rinse mouth after use. 1 Bottle 0 02/06/2021 2022 Discontinued (Course of therapy completed) Comment on above: Use 2 Sprays in each nostril once daily. Rinse mouth after use. 1 ml heparin sodium, porcine 1000 unt/ml injection (1 source) Unfractionated Heparin, Anti-coagulant Start: 03-01-20 20 End: 03-01-20 heparin (porcine) injection magnesium oxide 400 mg oral tablet (20 sources) Start: 08-29-20 15 take 1 tablet by mouth once daily Magnesium Oxide 400 MG Oral Tablet TAKE 1 TABLET DAILY. Quantity: 0 Refills: 0 Ordered: 29-Aug-2015 DO Start : 29-Aug-2015 Active Start: 07-23-2014 End: 07-07-2024 take 1 capsule by mouth twice daily magnesium oxide 400 mg cap Take 1 capsule by mouth twice daily. 0 07/23/2014 07/07/2024 Discontinued (Discontinued by another Health Care Provider) take 1 tablet by [facility] twice daily magnesium oxide (MAG-OX) 400 MG tablet Take 400 mg by mouth 2 times daily 0 Active Comment on above: Take 1 capsule by [facility] twice daily. meropenem 2000 MG Injection (4 sources) Start: 06-26-20 End: 07-15-20 meropenem 2 g intravenous injection Dose : 2,000 mg =, Intravenous, BID, 0 Refill(s), 63.3 Start Date: 06/26/24 Stop Date: 07/15/24 Status: Ordered 1 ml midazolam 5 mg/ml cartridge (2 sources) Benzodiazepine Start: 03-01-20 End: 03-01-20 midazolam (VERSED) injection omeprazole 40 mg delayed release oral capsule (20 sources) Proton Pump Inhibitor Start: 09-26-20 End: 07-07-20 take 1 capsule by mouth once daily omeprazole (PRILOSEC) 40 mg capsule Take 1 capsule by mouth once daily. 30 capsule 5 09/26/2023 07/07/2024 Discontinued (Discontinued by another Health Care Provider) Start: 08-29-2015 End: 09-26-2023 take 1 capsule by mouth once daily Omeprazole 20 MG Oral Capsule Delayed Release TAKE 1 CAPSULE DAILY. Quantity: 0 Refills: 0 Ordered: 29-Aug-2015 DO Start : 29-Aug-2015 Active Comment on above: Take 20 mg by mouth once daily. Take 1 capsule by [facility] once daily. perflutren lipid microspheres 1.3 mL in NaCl (PF) 0.9% 10 mL injection (DEFINITY) (20 sources) Start: 12-18-2022 End: 03-18-2024 perflutren lipid microspheres 1.3 mL in NaCl (PF) 0.9% 10 mL injection (DEFINITY) 125 ml sodium chloride 9 mg/ml prefilled syringe (20 sources) Start: 12-18-2022 End: 03-18-2024 sodium chloride 0.9 % (flush) 10 mL (BD POSIFLUSH) Start: 03-01-2020 0.9 % sodium c hloride infusion tamsulosin hydrochloride 0.4 mg oral capsule (1 source) alpha-Adrenergic Anne Start: 03-06-2022 End: 03-06-2022 take 1 capsule by mouth once daily at bedtime tamsulosin (FLOMAX) 0.4 mg Take 1 capsule by mouth daily at bedtime. 30 capsule 3 03/06/2022 03/06/2022 Discontinued Comment on above: Take 1 capsule by [facility] daily at bedtime. 30 actuat umeclidinium 0.0625 mg/actuat / vilanterol 0.025 mg/actuat dry powder inhaler (20 sources) Anticholinergic, beta2-Adrenergic Agonist Start: 12-07-2019 End: 11-29-2023 take 1 dose by inhalation once daily umeclidinium-germain anterol (ANORO ELLIPTA) 62.5-25 mcg/actuation inhaler INHALE 1 INHALATION INSTRUCTED ONCE DAILY. 1 Each 12/07/2019 11/29/2023 Discontinued Anoro Ellipta 62 .5-25 MCG/INH AEPB Quantity: 0 Refills: 0 Ordered: 11-Oct-2016 DO Active take 1 puff(s) by inhalation onc e daily umeclidinium-vilanterol (ANORO ELLIPTA) 62.5-25 MCG/INH AEPB inhaler Inhale 1 puff into the lungs daily 0 Active Comment on above: INHALE 1 INHALATION INSTRUCTED ONCE DAILY. Problems Active Problems Problem Classification Problem Date Documented Date Episodic/Chronic Abdominal hernia (1 source) Disorder of abdominal wall; Translations: [Ventral hernia without obstruction or gangrene] 03-31-2024 Episodic Acute and unspecified renal failure (18 sources) Acute renal failure syndrome; Translations: [Acute kidney failure, unspecified] Onset: 02-14-20 18 02-13-2018 Episodic Acute myocardial infarction (6 sources) Myocardial infarction; Translations: [Non-ST elevation (NSTEMI) myocardial infarction] Onset: 12-28-19 18 Resolved : 12-29-19 18 12-28-2017 Chronic Administrative/social admission (1 source) Needs assistance at home; Translations: [Need for assistance with personal care] Episodic Bacterial infection; unspecified site (1 source) Bacteremia caused by Gram-negative bacteria; Translations: [Bacteremia] 07-17-2024 Episodic Calculus of urinary tract (20 sources) Kidney stone; Translations: [Calculus of kidney] 12-08-2017 Episodic Cardiac dysrhythmias (2 sources) Unspecified atrial fibrillation; Translations: [Unspecified atrial fibrillation] Onset: 06-30-20 Chronic Cataract (20 sources) Cataract; Translations: [Unspecified cataract] Onset: 03-06-20 22 03-06-2022 Chronic Chronic kidney disease (20 sources) Chronic kidney disease, unspecified; Translations: [History of renal transplant] Onset: 02-21-20 Resolved : 11-28-19 13 02-13-2018 Chronic Chronic kidney disease (2 sources) Chronic kidney disease; Translations: [Chronic kidney disease, stage 3b (CMS/HCC)] Onset: 11-13-19 24 Chronic obstructive pulmonary disease and bronchiectasis (20 sources) Asthma-chronic obstructive pulmonary disease overlap syndrome; Translations: [Chronic obstructive lung disease] Onset: 12-29-19 18 12-28-2017 Chronic Chronic obstructive pulmonary disease and bronchiectasis (1 source) Bronchitis; Translations: [Bronchitis, not specified as acute or chronic] Episodic Coagulation and hemorrhagic disorders (16 sources) Acquired thrombocytopenia; Translations: [Thrombocytopenia, unspecified] Onset: 02-14-20 18 02-13-2018 Chronic Complication of device; implant or graft (1 source) Arteriosclerosis of coronary artery bypass graft; Translations: [Atherosclerosis of coronary artery bypass graft(s) without angina pectoris] Onset: 06-30-20 Chronic Complications of surgical procedures or medical care (2 sources) Infection following a procedure, deep incisional surgical site, initial encounter; Translations: [Infection following a procedure, deep incisional surgical site, initial encounter] Onset: 07-13-20 Episodic Conduction disorders (2 sources) Encounter for adjustment and management of automatic implantable cardiac defibrillator; Translations: [Encounter for adjustment and management of automatic implantable cardiac defibrillator] Onset: 07-20-20 Chronic Coronary atherosclerosis and other heart disease (20 sources) Atherosclerotic heart disease of [place] coronary artery without angina pectoris; Translations: [Coronary arteriosclerosis] Onset: 02-21-20 10 12-28-2017 Chronic Coronary atherosclerosis and other heart disease (1 source) Aortocoronary bypass graft present; Translations: [Presence of aortocoronary bypass graft] Episodic Deficiency and other anemia (1 source) Hemolytic uremic syndrome; Translations: [Other hemolytic-uremic syndrome (HCC)] 07-09-2024 Chronic Deficiency and other anemia (2 sources) Anemia in chronic kidney disease; Translations: [Anemia in chronic kidney disease] Onset: 07-22-20 24 Chronic Disorders of lipid metabolism (20 sources) Dyslipidemia; Translations: [Other and unspecified hyperlipidemia] Onset: 06-09-20 21 06-09-2021 Chronic Esophageal disorders (20 sources) Gastroesophageal reflux disease; Translations: [Gastro-esophageal reflux disease without esophagitis] Onset: 03-05-20 14 03-05-2014 Chronic Essential hypertension (20 sources) Hypertensive disorder; Translations: [Essential (primary) hypertension] Onset: 12-29-19 18 12-28-2017 Chronic Genitourinary symptoms and ill-defined conditions (1 source) Device in situ; Translations: [Presence of urogenital implants] Chronic Genitourinary symptoms and ill-defined conditions (20 sources) Retention of urine; Translations: [Retention of urine, unspecified] Onset: 02-14-20 18 02-14-2018 Episodic Heart valve disorders (13 sources) Aortic valve regurgitation; Translations: [Nonrheumatic aortic (valve) insufficiency] Onset: 12-29-19 18 12-28-2017 Chronic Hyperplasia of prostate (20 sources) Benign prostatic hypertrophy with outflow obstruction; Translations: [Benign prostatic hyperplasia with lower urinary tract symptoms] Onset: 09-15-20 Chronic Hypertension with complications and secondary hypertension (3 sources) Hypertensive chronic kidney disease with stage 1 through stage 4 chronic kidney disease, or unspecified chronic kidney disease; Translations: [Chronic kidney disease stage 5 due to hypertension] Onset: 02-12-20 19 Chronic Immunity disorders (20 sources) Immunosuppression; Translations: [Immunodeficiency, unspecified] Onset: 12-29-19 18 12-28-2017 Chronic Malaise and fatigue (6 sources) Malaise; Translations: [Other malaise] Onset: 06-30-20 24 Episodic Mood disorders (20 sources) Depressive disorder; Translations: [Depression] Onset: 03-07-20 12 03-07-2012 Chronic Nonspecific chest pain (6 sources) Chest pain; Translations: [Chest pain, unspecified] Onset: 05-24-20 Resolved : 12-29-19 18 12-28-2017 Episodic Nutritional deficiencies (13 sources) Vitamin D deficiency; Translations: [Unspecified vitamin D deficiency] Onset: 11-13-19 24 11-13-2023 Chronic Nutritional deficiencies (1 source) Iron deficiency; Translations: [Iron deficiency] Episodic Osteoporosis (20 sources) Osteoporosis; Translations: [Other osteoporosis without current pathological fracture] Onset: 09-21-2009-21-2018 Chronic Other aftercare (2 sources) Post-discharge follow-up; Translations: [Encounter for follow-up examination after completed treatment for conditions other than malignant neoplasm] 12-07-2023 Episodic Other aftercare (1 source) Surgical follow-up; Translations: [Encounter for surgical aftercare following surgery on the circulatory system] 03-23-2024 Episodic Other aftercare (1 source) Long-term current use of drug therapy; Translations: [senior living (current) use of antithrombotics/antiplate lets] Episodic Other aftercare (1 source) Long-term current use of anticoagulant; Translations: [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 of anticoagulants] Episodic Other aftercare (2 sources) Encounter for adjustment and management of vascular access device; Translations: [Encounter for adjustment and management of vascular access device] Onset: 07-13-20 Episodic Other aftercare (2 sources) senior living (current) use of antibiotics; Translations: [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 of antibiotics] Onset: 07-13-20 Episodic Other aftercare (2 sources) 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 of oral hypoglycemic drugs; Translations: [senior living (current) use of oral hypoglycemic drugs] Onset: 07-13-20 Episodic Other bone disease and musculoskeletal deformities (10 sources) Osteopenia; Translations: [Disorder of bone and cartilage, unspecified] Episodic Other circulatory disease (2 sources) Peripheral vascular angioplasty status with implants and grafts; Translations: [Peripheral vascular angioplasty status w implants and grafts] Onset: 06-12-20 Chronic Other connective tissue disease (5 sources) [...] [Other enthesopathies, not elsewhere classified] Episodic Other connective tissue disease (1 source) Swelling of hand; Translations: [Other specified soft tissue disorders] 02-11-2024 Episodic Other connective tissue disease (2 sources) Swelling of upper limb; Translations: [Other specified soft tissue disorders] 03-31-2024 Episodic Other connective tissue disease (1 source) Calcaneal spur of left foot; Translations: [Calcaneal spur, left foot] 03-31-2024 Episodic Other connective tissue disease (1 source) Pain in left foot; Translations: [Pain in left foot] 01-02-2024 Episodic Other connective tissue disease (1 source) Pain in right foot; Translations: [Pain in right foot] 08-20-2020 Episodic Other connective tissue disease (2 sources) Other specified soft tissue disorders; Translations: [Other specified soft tissue disorders] Onset: 04-26-20 Episodic Other connective tissue disease (2 sources) Pain in right arm; Translations: [Pain in right arm] Onset: 04-26-20 Episodic Other diseases of bladder and urethra (20 sources) Neurogenic bladder; Translations: [Neuromuscular dysfunction of bladder, unspecified] Onset: 12-09-19 18 12-08-2017 Chronic Other diseases of kidney and ureters (1 source) Disorder of kidney and/or ureter; Translations: [Disorder of kidney and ureter, unspecified] Episodic Other endocrine disorders (20 sources) Hyperparathyroidism; Translations: [Hyperparathyroidism, unspecified] Onset: 12-09-19 18 12-08-2017 Chronic Other endocrine disorders (5 sources) Hyperparathyroidism, unspecified; Translations: [Hyperparathyroidism (HCC)] Onset: 12-09-19 Chronic Other lower respiratory disease (20 sources) Multiple nodules of lung; Translations: [Other nonspecific abnormal finding of lung field] 12-08-2017 Episodic Other lower respiratory disease (2 sources) Persistent cough; Translations: [Persistent cough for 3 weeks or longer] 02-11-2024 Episodic Other lower respiratory disease (1 source) Nodule of lung; Translations: [Solitary pulmonary nodule] 05-25-2024 Episodic Other nervous system disorders (20 sources) Chronic pain syndrome; Translations: [Chronic pain syndrome] Onset: 08-09-20 18 08-09-2018 Chronic Other nervous system disorders (4 sources) Postoperative pain ; Translations: [Other acute postprocedural pain] Episodic Other nervous system disorders (1 source) Abnormal gait; Translations: [Unspecified abnormalities of gait and mobility] Episodic Other non-traumatic joint disorders (4 sources) Shoulder pain; Translations: [Pain in left shoulder] Episodic Other non-traumatic joint disorders (4 sources) Chronic pain of left upper limb; Translations: [Pain in left shoulder] Episodic Other non-traumatic joint disorders (1 source) Pain in left shoulder; Translations: [Pain in joint, shoulder region] 05-04-2022 Episodic Other nutritional; endocrine; and metabolic disorders (20 sources) Hyperhomocysteinemia ; Translations: [Homocystinuria] Onset: 12-09-1912-08-2017 Chronic Other nutritional; endocrine; and metabolic disorders (1 source) Homocystinuria; Translations: [Hyperhomocysteinemia (HCC)] Onset: 12-09-19 Chronic Other screening for suspected conditions (not mental disorders or infectious disease) (1 source) Plain X-ray result abnormal; Translations: [Abnormal findings on diagnostic imaging of other specified body structures] Chronic Other upper respiratory infections (1 source) Sore throat symptom; Translations: [Acute pharyngitis, unspecified] Episodic [place]-; endo-; and myocarditis; cardiomyopathy (except that caused by tuberculosis or sexually transmitted disease) (20 sources) Heart valve disorder; Translations: [Endocarditis, valve unspecified] Onset: 12-18-19 Chronic Peripheral and visceral atherosclerosis (20 sources) Atherosclerosis of [place] arteries of extremities with intermittent claudication, bilateral legs; Translations: [Peripheral vascular disease] Onset: 08-22-20 Resolved : 08-09-20 20 02-11-2018 Chronic Peripheral and visceral atherosclerosis (2 sources) Stenosis of right subclavian artery; Translations: [Intermittent claudication of bilateral lower limbs co-occurrent and due to atherosclerosis] Phlebitis; thrombophlebitis and thromboembolism (1 source) Thromboembolism of vein; Translations: [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] 03-31-2024 Chronic Phlebitis; thrombophlebitis and thromboembolism (20 sources) Deep venous thrombosis; Translations: [Acute embolism and thrombosis of unspecified deep veins of unspecified lower extremity] Onset: 09-28-2012-08-2017 Episodic Pulmonary heart disease (20 sources) Pulmonary hypertension; Translations: [Pulmonary hypertension, unspecified] Onset: 12-18-19 Chronic Residual codes; unclassified (20 sources) Obstructive sleep apnea syndrome; Translations: [Obstructive sleep apnea (adult) (pediatric)] Onset: 08-04-20 11 02-20-2022 Chronic Residual codes; unclassified (1 source) Obstructive sleep apnea (adult) (pediatric); Translations: [VIC (obstructive sleep apnea)] Onset: 02-21-20 Chronic Residual codes; unclassified (2 sources) Transplanted organ and tissue status, unspecified; Translations: [Transplanted organ and tissue status, unspecified] Onset: 04-26-20 Chronic Residual codes; unclassified (4 sources) Edema, unspecified; Translations: [Edema, unspecified] Onset: 04-01-20 Episodic Residual codes; unclassified (4 sources) Localized edema; Translations: [Localized edema] Onset: 04-01-20 Episodic Residual codes; unclassified (3 sources) Altered mental status; Translations: [Altered mental status, unspecified] Onset: 06-13-20 Episodic Residual codes; unclassified (1 source) Bilateral lower limb edema; Translations: [Localized edema] Onset: 06-11-2006-11-2024 Episodic Respiratory failure; insufficiency; arrest (adult) (2 sources) Respiratory failure; insufficiency; arrest (adult); Translations: [Chronic renal failure, stage 3a (HCC)] Onset: 01-08-20 Screening and history of mental health and substance abuse codes (3 sources) Personal history of nicotine dependence; Translations: [H/O: Disorder] Onset: 02-12-20 Episodic Septicemia (except in labor) (3 sources) Sepsis due to Pseudomonas; Translations: [Sepsis due to Pseudomonas] Onset: 06-26-20 Episodic Shock (4 sources) Septic shock; Translations: [Severe sepsis with septic shock] Onset: 06-14-20 Episodic Spondylosis; intervertebral disc disorders; other back problems (20 sources) Chronic low back pain; Translations: [Lumbago with sciatica, left side] Onset: 06-21-20 16 06-21-2016 Episodic Thyroid disorders (13 sources) Hypothyroidism; Translations: [Hypothyroidism, unspecified] Onset: 12-29-19 18 12-28-2017 Chronic Unclassified (1 source) Unknown / UNK(Unknown) Onset: 09-09-20 Unclassified (1 source) 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ppressive medication ([facility]) ([facility]); Translations: [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) ([facility])] Onset: 08-27-20 19 Urinary tract infections (3 sources) Urinary tract infectious disease; Translations: [Urinary tract infection, site not specified] Onset: 06-14-20 Episodic Viral infection (1 source) COVID-19; Translations: [Other specified viral infection] 08-05-2023 Episodic Past or Other Problems Problem Classification Problem Date Documented Date Episodic/Chronic Abdominal pain (20 sources) Right lower quadrant pain; Translations: [Right lower quadrant pain] Onset: 01-06-2018 01-07-2018 Episodic Cardiac dysrhythmias (20 sources) Palpitations; Translations: [Palpitations] Onset: 06-09-2021 06-09-2021 Episodic Deficiency and other anemia (13 sources) Anemia; Translations: [Anemia, unspecified] Onset: 02-13-2018 02-13-2018 Episodic Fluid and electrolyte disorders (13 sources) Hyperkalemia; Translations: [Hyperkalemia] Onset: 02-13-2018 02-13-2018 Episodic Influenza (4 sources) Influenza due to Influenza A virus; Translations: [Influenza due to identified novel influenza A virus with pneumonia] Onset: 12-30-2023 11-29-2023 Episodic Other aftercare (20 sources) Drug-induced immunodeficiency ; Translations: [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ppressive medication] Onset: 01-07-2018 08-27-2019 Episodic Other aftercare (1 source) 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; Translations: [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ppressive medication ([facility]) ([facility])] Onset: 08-27-2019 Episodic Other circulatory disease (3 sources) O/E - BP reading low; Translations: [Hypotension, unspecified] Onset: 02-13-2018 02-13-2018 Episodic Other circulatory disease (10 sources) Low blood pressure; Translations: [Hypotension, unspecified] Onset: 02-13-2018 07-22-2022 Episodic Other connective tissue disease (20 sources) Pain in bilateral legs; Translations: [Pain in right leg] Onset: 11-28-2016 11-28-2016 Episodic Other connective tissue disease (20 sources) Iliotibial band friction syndrome; Translations: [Iliotibial band syndrome, unspecified leg] Onset: 11-28-2016 11-28-2016 Episodic Other connective tissue disease (1 source) Pain in left foot; Translations: [Foot pain, left] Onset: 01-02-2024 Episodic Other diseases of kidney and ureters (1 source) Other obstructive and reflux uropathy; Translations: [Benign prostatic hyperplasia with urinary obstruction] Onset: 09-15-2022 Episodic Other lower respiratory disease (16 sources) Lesion of lung; Translations: [Other disorders of lung] Onset: 03-31-2024 03-31-2024 Episodic Other screening for suspected conditions (not mental disorders or infectious disease) (20 sources) Patient encounter status; Translations: [Screening for lipoid disorders] Onset: 06-09-2021 Resolved: 06-14-2021 Episodic Pathological fracture (3 sources) Osteoporosis; Translations: [Age-related osteoporosis with current pathological fracture, unspecified site, initial encounter for fracture] Onset: 11-13-2023 11-13-2023 Episodic Pneumonia (except that caused by tuberculosis or sexually transmitted disease) (6 sources) Viral pneumonia; Translations: [Viral pneumonia, unspecified] Onset: 03-31-2024 12-07-2023 Episodic Residual codes; unclassified (20 sources) History of operative procedure on shoulder; Translations: [Other specified postprocedural states] Onset: 01-25-2023 Episodic Residual codes; unclassified (1 source) Other specified postprocedural states; Translations: [S/P shoulder surgery] Onset: 01-25-2023 Episodic Sprains and strains (20 sources) Traumatic rupture of rotator cuff; Translations: [Strain of muscle(s) and tendon(s) of the rotator cuff of left shoulder, initial encounter] Onset: 09-15-2022 Episodic Unclassified (2 sources) Patient encounter status; Translations: [Screening cholesterol level] Results Test Name Value Interpretation Reference Range Facility .Auto Diffon 07-20-2024 Basophil, Absolute 0.0 10 3/mcL Normal 0.0-0.2 [facility] Comment on above: Performed By: #### C MP, ANEU, CBC, ADIFF, GFR #### [address] [address] Basophils/100 WBC (Bld) 0.6 % Normal 0.0-2.5 [facility] Comment on above: Performed By: #### C MP, ANEU, CBC, ADIFF, GFR #### [address] [address] Eosinophil, Absolute 0.2 10 3/mcL Normal 0.0-0.7 [facility] Comment on above: Performed By: #### C MP, ANEU, CBC, ADIFF, GFR #### [address] [address] Eosinophils/100 WBC (Bld) 3.9 % Normal 0.0-7.0 [facility] Comment on above: Performed By: #### C MP, ANEU, CBC, ADIFF, GFR #### [address] [address] Lymphocyte, Absolute 2.1 10 3/mcL Normal 0.9-4.3 [facility] Comment on above: Performed By: #### C MP, ANEU, CBC, ADIFF, GFR #### [address] [address] Lymphocytes/100 WBC (Bld) 34.9 % Normal 20.0-40.0 [facility] Comment on above: Performed By: #### C MP, ANEU, CBC, ADIFF, GFR #### [address] [address] Monocyte, Absolute 0.6 10 3/mcL Normal 0.1-1.4 [facility] Comment on above: Performed By: #### C MP, ANEU, CBC, ADIFF, GFR #### [address] [address] Monocytes/100 WBC (Bld) 9.8 % Normal 2.0-13.0 [facility] Comment on above: Performed By: #### C MP, ANEU, CBC, ADIFF, GFR #### [address] [address] Neutrophils/100 WBC (Bld) 50.8 % Normal 50.0-75.0 [facility] Comment on above: Performed By: #### C MP, ANEU, CBC, ADIFF, GFR #### [address] [address] .GFRon 07-20-2024 GFR Non- 59 ml/min/1.73sqm Normal [facility] Comment on above: Result Comment: GFR Population mean for , Non- Americans Ages 20-29 = 116 mL/min/1.73 sq.m. Ages 30-39 = 107 mL/min/1.73 sq.m. Ages 40-49 = 99 mL/min/1.73 sq.m. Ages 50-59 = 93 mL/min/1.73 sq.m. Ages 60-69 = 85 mL/min/1.73 sq.m. Ages 70+ = 75 mL/min/1.73 sq.m. Chronic Kidney Disease: Less than 60 mL/min/1.73 square meters End Stage Renal Disease: Less than 15 mL/min/1.73 square meters Performed By: #### C MP, ANEU, CBC, ADIFF, GFR #### [address] [address] GFR 71 ml/min/1.73sqm Normal [facility] Comment on above: Result Comment: GFR Population mean for , Non- Americans Ages 20-29 = 116 mL/min/1.73 sq.m. Ages 30-39 = 107 mL/min/1.73 sq.m. Ages 40-49 = 99 mL/min/1.73 sq.m. Ages 50-59 = 93 mL/min/1.73 sq.m. Ages 60-69 = 85 mL/min/1.73 sq.m. Ages 70+ = 75 mL/min/1.73 sq.m. Chronic Kidney Disease: Less than 60 mL/min/1.73 square meters End Stage Renal Disease: Less than 15 mL/min/1.73 square meters Performed By: #### C MP, ANEU, CBC, ADIFF, GFR #### [address] [address] .NEUABSon 07-20-2024 Neutrophil, Absolute 3.1 10 3/mcL Normal 2.3-8.1 [facility] Comment on above: Performed By: #### C MP, ANEU, CBC, ADIFF, GFR #### [address] [address] CBCon 07-20-2024 Erythrocyte distribution width (RBC) [Ratio] 16.8 % High 11.5-15.5 [facility] Comment on above: Performed By: #### C MP, ANEU, CBC, ADIFF, GFR #### [address] [address] Hematocrit (Bld) [Volume fraction] 32.8 % Low 40.0-52.0 [facility] Comment on above: Performed By: #### C MP, ANEU, CBC, ADIFF, GFR #### [address] [address] Hgb 10.8 G/dL Low 13.0-17.5 [facility] Comment on above: Performed By: #### C MP, ANEU, CBC, ADIFF, GFR #### [address] [address] MCH (RBC) [Entitic mass] 30.0 pg Normal 27.0-33.0 [facility] Comment on above: Performed By: #### C MP, ANEU, CBC, ADIFF, GFR #### [address] [address] MCHC 33.0 G/dL Normal 32.0-36.0 [facility] Comment on above: Performed By: #### C MP, ANEU, CBC, ADIFF, GFR #### [address] [address] MCV (RBC) [Entitic vol] 91.1 fL Normal 81.0-100.0 [facility] Comment on above: Performed By: #### C MP, ANEU, CBC, ADIFF, GFR #### [address] [address] Platelet 97 10 3/mcL Low 150-450 [facility] Comment on above: Performed By: #### C MP, ANEU, CBC, ADIFF, GFR #### [address] [address] Platelet mean volume (Bld) [Entitic vol] 9.6 fL Normal 6.4-10.5 [facility] Comment on above: Performed By: #### C MP, ANEU, CBC, ADIFF, GFR #### [address] [address] RBC 3.60 10 6/mcL Low 4.50-6.00 [facility] Comment on above: Performed By: #### C MP, ANEU, CBC, ADIFF, GFR #### [address] [address] WBC 6.2 10 3/mcL Normal 4.5-10.8 [facility] Comment on above: Performed By: #### C MP, ANEU, CBC, ADIFF, GFR #### [address] [address] CMPon 07-20-2024 Albumin Level 3.6 G/dL Normal 3.5-5.0 [facility] Comment on above: Performed By: #### C MP, ANEU, CBC, ADIFF, GFR #### [address] [address] Albumin/Globulin [Mass ratio] 1.3 {ratio} Normal 1.1-2.5 [facility] Comment on above: Performed By: #### C MP, ANEU, CBC, ADIFF, GFR #### [address] [address] ALP [Catalytic activity/Vol] 186 U/L High 40-135 [facility] Comment on above: Performed By: #### C MP, ANEU, CBC, ADIFF, GFR #### [address] [address] ALT [Catalytic activity/Vol] 56 U/L Normal 16-63 [facility] Comment on above: Performed By: #### C MP, ANEU, CBC, ADIFF, GFR #### [address] [address] AST [Catalytic activity/Vol] 38 U/L Normal 10-40 [facility] Comment on above: Performed By: #### C MP, ANEU, CBC, ADIFF, GFR #### [address] [address] Bili Total 1.0 mg/dL Normal 0.2-1.0 [facility] Comment on above: Result Comment: Use of this assay is not recommended for patients undergoing treatment with eltrombopag due to the potential for falsely elevated results. Performed By: #### C MP, ANEU, CBC, ADIFF, GFR #### [address] [address] BUN/Creatinine Ratio 17 ratio Normal 7-27 [facility] Comment on above: Performed By: #### C MP, ANEU, CBC, ADIFF, GFR #### [address] [address] Calcium [Mass/Vol] 10.3 mg/dL High 8.4-10.2 [facility] Comment on above: Performed By: #### C MP, ANEU, CBC, ADIFF, GFR #### [address] [address] Chloride [Moles/Vol] 107 mmol/L Normal 98-107 [facility] Comment on above: Performed By: #### C MP, ANEU, CBC, ADIFF, GFR #### [address] [address] CO2 [Moles/Vol] 26 mmol/L Normal 22-29 [facility] Comment on above: Performed By: #### C MP, ANEU, CBC, ADIFF, GFR #### [address] [address] Creatinine [Mass/Vol] 1.27 mg/dL Normal 0.70-1.30 [facility] Comment on above: Result Comment: Test ing performed on Siemens Dimension EXL analyzer using a modified kinetic Maryjane technique. Performed By: #### C MP, ANEU, CBC, ADIFF, GFR #### [address] [address] Electrolyte Balance 7.0 mEq/L Normal 4.0-15.0 [facility] Comment on above: Performed By: #### C MP, ANEU, CBC, ADIFF, GFR #### [address] [address] Globulin 2.8 G/dL Normal [facility] Comment on above: Performed By: #### C MP, ANEU, CBC, ADIFF, GFR #### [address] [address] Glucose [Mass/Vol] 88 mg/dL Normal 70-105 [facility] Comment on above: Performed By: #### C MP, ANEU, CBC, ADIFF, GFR #### [address] [address] Potassium [Moles/Vol] 5.5 mmol/L High 3.5-5.1 [facility] Comment on above: Performed By: #### C MP, ANEU, CBC, ADIFF, GFR #### [address] [address] Sodium [Moles/Vol] 140 mmol/L Normal 136-145 [facility] Comment on above: Performed By: #### C MP, ANEU, CBC, ADIFF, GFR #### [address] [address] Total Protein 6.4 G/dL Normal 6.4-8.2 [facility] Comment on above: Performed By: #### C MP, ANEU, CBC, ADIFF, GFR #### [address] [address] Urea nitrogen [Mass/Vol] 22 mg/dL High 7-18 [facility] Comment on above: Performed By: #### C MP, ANEU, CBC, ADIFF, GFR #### [address] [address] CRPon 07-20-2024 C-Reactive Protein 0.1 mg/dL Normal 0.0-0.3 [facility] Comment on above: Performed By: #### C MP, ANEU, CBC, ADIFF, GFR #### [address] [place], [place] [address] ESRon 07-20-2024 Erythrocyte Sed Rate 1 mm/hr Normal 0-20 [facility] Comment on above: Performed By: #### C MP, ANEU, CBC, ADIFF, GFR #### [address] [place], [place] [address] CNPNon 07-15-2024 [facility] MARIAN KOCH ([id number]) 1970 Date Time Provider Department 07/15/24 Diana TATE [facility] During your visit today, we recorded the following information about you: Sallie Mansfield LPN 07/15/2024 11:30 AM Signed [facility] with [facility] calling, patient will be discharged today from in home PT. Patient is doing very well. Alysha Marley APRN.HERON 07/15/2024 1:09 PM Signed Noted. Alysha Marley APRN.CNP Allergies As of Date: 07/15/2024 Noted Allergy Reaction BEE STING 02/20/2010 4 - Hives 7 - Swelling DARVOCET-N 100 (PROPOXYPHENE N-AC*02/20/2010 4 - Hives Date Reviewed: 07/07/2024 Reviewed by: Melissa Layne APRN.CNP - Fully Assessed Reason for Visit: FYI-No Action Needed [265] Prescriptions as of 07/15/2024 - Darbepoetin Sridevi In Polysorbat (ARANESP) 60 mcg/0.3 mL syrg Inject 0.3 mL subcutaneously one time a week. - doxazosin (CARDURA) 8 mg tablet Take 8 mg by mouth daily at bedtime. - metoprolol tartrate, short acting, (LOPRESSOR) 25 mg tablet Take 1 tablet by mouth every 12 hours. - pantoprazole DR (PROTONIX) 40 mg tablet Take 1 tablet by mouth every afternoon. - traMADol (ULTRAM) 50 mg tablet Take 50 mg by mouth every 6 hours as needed for pain. - ELIQUIS 5 mg tab(s) Take 5 mg by mouth two times a day. - clopidogrel (PLAVIX) 75 mg tablet Take by mouth once daily. - meropenem 2 gram solr Inject 2,000 mg intravenously once daily. - gabapentin (NEURONTIN) 300 mg capsule Take 1 capsule by mouth two times a day for 90 days. - tacrolimus ER (ASTAGRAF XL) 0.5 mg capsule Take 3 capsules by mouth every 24 hours. - Cholecalciferol, Vitamin D3, 50 mcg (2,000 unit) cap Take 100 mcg by mouth. - albuterol HFA (PROVENTIL HFA, VENTOLIN HFA) 90 mcg/actuation inhaler Inhale 2 Puffs as instructed every 6 hours as needed. - atorvastatin (LIPITOR) 80 mg tablet Take 1 tablet by mouth daily at bedtime. - predniSONE (DELTASONE) 5 mg tablet Take 1 tablet by mouth once daily. - acetaminophen (TYLENOL) 500 mg tablet Take 500 mg by mouth every 8 hours as needed. Problem List As Of Date 07/15/2024 Noted Resolved Renal failure, chronic, stage 3 (moderate) [N18*02/20/2010 CAD (coronary artery disease) [I25.10] 02/20/2010 Dialysis patient [Z99.2] 02/20/2010 11/28/2012 DVT (deep venous thrombosis) ([facility]) [I82.409] 09/28/2010 VIC (obstructive sleep apnea) [G47.33] 08/04/2011 Depression [F32.A] 03/07/2012 H/O kidney transplant [Z94.0] 11/28/2012 GERD (gastroesophageal reflux disease) [K21.9] 03/05/2014 Chronic left-sided low back pain with left-side*06/21/2016 Bilateral leg pain [M79.604, M79.605] 11/28/2016 Iliotibial band syndrome [M76.30] 11/28/2016 Radiculopathy, lumbar region [M54.16] 11/28/2016 Claudication of both lower extremities (HCC) [I*08/22/2017 Neurogenic bladder [N31.9] 12/08/2017 Hyperparathyroidism (HCC) [E21.3] 12/08/2017 Hyperhomocysteinemia (HCC) [E72.11] 12/08/2017 Pulmonary nodules [R91.8] Renal stones [N20.0] RLQ abdominal pain [R10.31] 01/06/2018 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/07/2018 Coronary artery disease of [place] artery of grace*01/07/2018 Chronic pain syndrome [G89.4] 08/09/2018 Other osteoporosis without current pathological*09/21/2018 Current mild episode of major depressive disord*02/05/2019 COPD (chronic obstructive pulmonary disease) (H*06/09/2021 Mixed hyperlipidemia [E78.2] 06/09/2021 Palpitations [R00.2] 06/09/2021 Screen for colon cancer [Z12.11] 06/09/2021 06/14/2021 Cataracta [H26.9] 03/06/2022 Traumatic incomplete tear of left rotator cuff *09/15/2022 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 Abnormal EKG [R94.31] 12/14/2022 VHD (valvular heart disease) [I38] 12/17/2022 Pulmonary hypertension (HCC) [I27.20] 12/17/2022 S/P shoulder surgery [Z98.890] 01/25/2023 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] 03/31/2024 Encounter Status:Closed by ALYSHA MARLEY on 07/15/24 Normal [facility] LCon 07-14-2024 LC Order Number [id number] Normal [facility] Comment on above: Order Comment: ESR S ent to LC Performed By: #### C MP, ANEU, CBC, ADIFF, GFR #### [facility] [address] [place], [place] [address] LC Test Name Sedimentation Rate; ESR Normal [facility] Comment on above: Order Comment: ESR S ent to LC Performed By: #### C MP, ANEU, CBC, ADIFF, GFR #### [address] [address] Misc Test Result COMMENT Normal [facility] Comment on above: Order Comment: ESR S ent to LC Result Comment: Test Ordered: [id number] Sedimentation Rate-Westergren Sedimentation Rate-Westergren 2 mm/hr CB Reference Range: 0-30 Performed At: [facility] [address] [id number] Salvatore Thomas PhD Ph:[phone] Performed By: #### C MP, ANEU, CBC, ADIFF, GFR #### [address] [address] .Auto Diffon 07-13-2024 Basophil, Absolute 0.0 10 3/mcL Normal 0.0-0.2 [facility] Comment on above: Performed By: #### C MP, ANEU, CBC, ADIFF, GFR #### [place] [id number] Basophils/100 WBC (Bld) 0.8 % Normal 0.0-2.5 [facility] Comment on above: Performed By: #### C MP, ANEU, CBC, ADIFF, GFR #### [address] [address] Eosinophil, Absolute 0.2 10 3/mcL Normal 0.0-0.7 [facility] Comment on above: Performed By: #### C MP, ANEU, CBC, ADIFF, GFR #### [address] [address] Eosinophils/100 WBC (Bld) 3.1 % Normal 0.0-7.0 [facility] Comment on above: Performed By: #### C MP, ANEU, CBC, ADIFF, GFR #### [address] [address] Lymphocyte, Absolute 1.6 10 3/mcL Normal 0.9-4.3 [facility] Comment on above: Performed By: #### C MP, ANEU, CBC, ADIFF, GFR #### [address] [address] Lymphocytes/100 WBC (Bld) 28.5 % Normal 20.0-40.0 [facility] Comment on above: Performed By: #### C MP, ANEU, CBC, ADIFF, GFR #### [address] [address] Monocyte, Absolute 0.6 10 3/mcL Normal 0.1-1.4 [facility] Comment on above: Performed By: #### C MP, ANEU, CBC, ADIFF, GFR #### [address] [address] Monocytes/100 WBC (Bld) 10.0 % Normal 2.0-13.0 [facility] Comment on above: Performed By: #### C MP, ANEU, CBC, ADIFF, GFR #### [address] [address] Neutrophils/100 WBC (Bld) 57.6 % Normal 50.0-75.0 [facility] Comment on above: Performed By: #### C MP, ANEU, CBC, ADIFF, GFR #### [address] [address] .GFRon 07-13-2024 GFR 71 ml/min/1.73sqm Normal [facility] [facility] Comment on above: Result Comment: GFR Population mean for , Non- Americans Ages 20-29 = 116 mL/min/1.73 sq.m. Ages 30-39 = 107 mL/min/1.73 sq.m. Ages 40-49 = 99 mL/min/1.73 sq.m. Ages 50-59 = 93 mL/min/1.73 sq.m. Ages 60-69 = 85 mL/min/1.73 sq.m. Ages 70+ = 75 mL/min/1.73 sq.m. Chronic Kidney Disease: Less than 60 mL/min/1.73 square meters End Stage Renal Disease: Less than 15 mL/min/1.73 square meters Performed By: #### C MP, ANEU, CBC, ADIFF, GFR #### [address] [address] GFR Non- 58 ml/min/1.73sqm Normal [facility] Comment on above: Result Comment: GFR Population mean for , Non- Americans Ages 20-29 = 116 mL/min/1.73 sq.m. Ages 30-39 = 107 mL/min/1.73 sq.m. Ages 40-49 = 99 mL/min/1.73 sq.m. Ages 50-59 = 93 mL/min/1.73 sq.m. Ages 60-69 = 85 mL/min/1.73 sq.m. Ages 70+ = 75 mL/min/1.73 sq.m. Chronic Kidney Disease: Less than 60 mL/min/1.73 square meters End Stage Renal Disease: Less than 15 mL/min/1.73 square meters Performed By: #### C MP, ANEU, CBC, ADIFF, GFR #### [place] [address] .NEUABSon 07-13-2024 Neutrophil, Absolute 3.2 10 3/mcL Normal 2.3-8.1 [facility] Comment on above: Performed By: #### C MP, ANEU, CBC, ADIFF, GFR #### [place] [address] CBCon 07-13-2024 Erythrocyte distribution width (RBC) [Ratio] 16.4 % High 11.5-15.5 [facility] Comment on above: Performed By: #### C MP, ANEU, CBC, ADIFF, GFR #### [place] [address] Hematocrit (Bld) [Volume fraction] 29.8 % Low 40.0-52.0 [facility] Comment on above: Performed By: #### C MP, ANEU, CBC, ADIFF, GFR #### [place] [address] Hgb 9.7 G/dL Low 13.0-17.5 [facility] Comment on above: Performed By: #### C MP, ANEU, CBC, ADIFF, GFR #### [place] [id number] MCH (RBC) [Entitic mass] 29.9 pg Normal 27.0-33.0 [facility] Comment on above: Performed By: #### C MP, ANEU, CBC, ADIFF, GFR #### [address] [address] MCHC 32.5 G/dL Normal 32.0-36.0 [facility] Comment on above: Performed By: #### C MP, ANEU, CBC, ADIFF, GFR #### [address] [address] MCV (RBC) [Entitic vol] 92.1 fL Normal 81.0-100.0 [facility] Comment on above: Performed By: #### C MP, ANEU, CBC, ADIFF, GFR #### [address] [address] Platelet 102 10 3/mcL Low 150-450 [facility] Comment on above: Performed By: #### C MP, ANEU, CBC, ADIFF, GFR #### [address] [address] Platelet mean volume (Bld) [Entitic vol] 9.2 fL Normal 6.4-10.5 [facility] Comment on above: Performed By: #### C MP, ANEU, CBC, ADIFF, GFR #### [address] [address] RBC 3.24 10 6/mcL Low 4.50-6.00 [facility] Comment on above: Performed By: #### C MP, ANEU, CBC, ADIFF, GFR #### [address] [address] WBC 5.5 10 3/mcL Normal 4.5-10.8 [facility] Comment on above: Performed By: #### C MP, ANEU, CBC, ADIFF, GFR #### [address] [address] CMPon 07-13-2024 Albumin Level 3.1 G/dL Low 3.5-5.0 [facility] Comment on above: Performed By: #### C MP, ANEU, CBC, ADIFF, GFR #### [address] [address] Albumin/Globulin [Mass ratio] 1.2 {ratio} Normal 1.1-2.5 [facility] Comment on above: Performed By: #### C MP, ANEU, CBC, ADIFF, GFR #### [address] [address] ALP [Catalytic activity/Vol] 156 U/L High 40-135 [facility] Comment on above: Performed By: #### C MP, ANEU, CBC, ADIFF, GFR #### [address] [address] ALT [Catalytic activity/Vol] 44 U/L Normal 16-63 [facility] Comment on above: Performed By: #### C MP, ANEU, CBC, ADIFF, GFR #### [address] [address] AST [Catalytic activity/Vol] 29 U/L Normal 10-40 [facility] Comment on above: Performed By: #### C MP, ANEU, CBC, ADIFF, GFR #### [address] [address] Bili Total 0.7 mg/dL Normal 0.2-1.0 [facility] Comment on above: Result Comment: Use of this assay is not recommended for patients undergoing treatment with eltrombopag due to the potential for falsely elevated results. Performed By: #### C MP, ANEU, CBC, ADIFF, GFR #### [address] [address] BUN/Creatinine Ratio 15 ratio Normal 7-27 [facility] Comment on above: Performed By: #### C MP, ANEU, CBC, ADIFF, GFR #### [address] [address] Calcium [Mass/Vol] 9.3 mg/dL Normal 8.4-10.2 [facility] Comment on above: Performed By: #### C MP, ANEU, CBC, ADIFF, GFR #### [place] [address] Chloride [Moles/Vol] 109 mmol/L High 98-107 [facility] Comment on above: Performed By: #### C MP, ANEU, CBC, ADIFF, GFR #### [place] [address] CO2 [Moles/Vol] 24 mmol/L Normal 22-29 [facility] Comment on above: Performed By: #### C MP, ANEU, CBC, ADIFF, GFR #### [place] [address] Creatinine [Mass/Vol] 1.28 mg/dL Normal 0.70-1.30 [facility] Comment on above: Result Comment: Test ing performed on Siemens Dimension EXL analyzer using a modified kinetic Maryjane technique. Performed By: #### C MP, ANEU, CBC, ADIFF, GFR #### [place] [address] Electrolyte Balance 8.0 mEq/L Normal 4.0-15.0 [facility] Comment on above: Performed By: #### C MP, ANEU, CBC, ADIFF, GFR #### [place] [address] Globulin 2.6 G/dL Normal [facility] Comment on above: Performed By: #### C MP, ANEU, CBC, ADIFF, GFR #### [place] [address] Glucose [Mass/Vol] 109 mg/dL High 70-105 [facility] Comment on above: Performed By: #### C MP, ANEU, CBC, ADIFF, GFR #### [place] [address] Potassium [Moles/Vol] 4.8 mmol/L Normal 3.5-5.1 [facility] Comment on above: Performed By: #### C MP, ANEU, CBC, ADIFF, GFR #### [address] [address] Sodium [Moles/Vol] 141 mmol/L Normal 136-145 [facility] Comment on above: Performed By: #### C MP, ANEU, CBC, ADIFF, GFR #### [address] [address] Total Protein 5.7 G/dL Low 6.4-8.2 [facility] Comment on above: Performed By: #### C MP, ANEU, CBC, ADIFF, GFR #### [address] [address] Urea nitrogen [Mass/Vol] 19 mg/dL High 7-18 [facility] Comment on above: Performed By: #### C MP, ANEU, CBC, ADIFF, GFR #### [address] [address] CRPon 07-13-2024 C-Reactive Protein 0.1 mg/dL Normal 0.0-0.3 [facility] Comment on above: Performed By: #### C MP, ANEU, CBC, ADIFF, GFR #### [address] [address] LABORATORYOrdered By: SYSTEM SYSTEM on 07-13-2024 Albumin BCP dye [Mass/Vol] 3.1 G/dL Low 3.5 - 5.0 G/dL AO ADM SS Albumin/Globulin [Mass ratio] 1.2 {ratio} Normal 1.1 - 2.5 ratio AO ADM SS ALP [Catalytic activity/Vol] 156 U/L High 40 - 135 U/L AO ADM SS ALT With P-5'-P [Catalytic activity/Vol] 44 U/L Normal 16 - 63 U/L AO ADM SS AST With P-5'-P [Catalytic activity/Vol] 29 U/L Normal 10 - 40 U/L AO ADM SS Basophils (Bld) [#/Vol] 0.0 103/mcL Normal 0.0 - 0.2 10^3/mcL AO Workflow SS Basophils/100 WBC (Bld) 0.8 % Normal 0.0 - 2.5 % AO Workflow SS Bilirubin [Mass/Vol] 0.7 mg/dL Normal 0.2 - 1.0 mg/dL AO ADM SS Comment on above: Interpretive Data: U se of this assay is not recommended for patients undergoing treatment with eltrombopag due to the potential for falsely elevated results. Calcium [Mass/Vol] 9.3 mg/dL Normal 8.4 - 10. 2 mg/dL AO ADM SS Chloride [Moles/Vol] 109 mmol/L High 98 - 107 mmol/L AO ADM SS CO2 [Moles/Vol] 24 mmol/L Normal 22 - 29 mmol/L AO ADM SS Creatinine [Mass/Vol] 1.28 mg/dL Normal 0.70 - 1.30 mg/dL AO ADM SS Comment on above: Interpretive Data: T esting performed on Siemens Dimension EXL analyzer using a modified kinetic Maryjane technique. CRP [Mass/Vol] 0.1 mg/dL Normal 0.0 - 0.3 mg/dL AO ADM SS Electrolyte Balance 8.0 mEq/L Normal 4.0 - 15 .0 mEq/L AO ADM SS Eosinophil, Absolute 0.2 103/mcL Normal 0.0 - 0.7 10^3/mcL AO Workflow SS Eosinophils/100 WBC (Bld) 3.1 % Normal 0.0 - 7.0 % AO Workflow SS Erythrocyte distribution width (RBC) [Ratio] 16.4 % High 11.5 - 15.5 % AO Workflow SS GFR/1.73 sq M.predicted among blacks MDRD (S/P/Bld) [Vol rate/Area] 71 ml/min/1.73sqm Invalid Interpretation Code AO Chemistry S Comment on above: Interpretive Data: GFR Population mean for , Non- Americans Ages 20-29 = 116 mL/min/1.73 sq.m. Ages 30-39 = 107 mL/min/1.73 sq.m. Ages 40-49 = 99 mL/min/1.73 sq.m. Ages 50-59 = 93 mL/min/1.73 sq.m. Ages 60-69 = 85 mL/min/1.73 sq.m. Ages 70+ = 75 mL/min/1.73 sq.m. Chronic Kidney Disease: Less than 60 mL/min/1.73 square meters End Stage Renal Disease: Less than 15 mL/min/1.73 square meters GFR/1.73 sq M.predicted among non-blacks MDRD (S/P/Bld) [Vol rate/Area] 58 ml/min/1.73sqm Invalid Interpretation Code AO Chemistry S Comment on above: Interpretive Data: GFR Population mean for , Non- Americans Ages 20-29 = 116 mL/min/1.73 sq.m. Ages 30-39 = 107 mL/min/1.73 sq.m. Ages 40-49 = 99 mL/min/1.73 sq.m. Ages 50-59 = 93 mL/min/1.73 sq.m. Ages 60-69 = 85 mL/min/1.73 sq.m. Ages 70+ = 75 mL/min/1.73 sq.m. Chronic Kidney Disease: Less than 60 mL/min/1.73 square meters End Stage Renal Disease: Less than 15 mL/min/1.73 square meters Globulin 2.6 G/dL Invalid Interpretation Code AO ADM SS Glucose [Mass/Vol] 109 mg/dL High 70 - 105 mg/dL AO ADM SS Hematocrit (Bld) [Volume fraction] 29.8 % Low 40.0 - 52.0 % AO Workflow SS Hemoglobin (Bld) [Mass/Vol] 9.7 G/dL Low 13.0 - 17.5 G/dL AO Workflow SS Lymphocytes (Bld) [#/Vol] 1.6 103/mcL Normal 0.9 - 4.3 10^3/mcL AO Workflow SS Lymphocytes/100 WBC (Bld) 28.5 % Normal 20.0 - 40.0 % AO Workflow SS MCH (RBC) [Entitic mass] 29.9 pg Normal 27.0 - 33.0 pg AO Workflow SS MCHC 32.5 G/dL Normal 32.0 - 36.0 G/dL AO Workflow SS MCV (RBC) [Entitic vol] 92.1 fL Normal 81.0 - 100.0 fL AO Workflow SS Monocytes (Bld) [#/Vol] 0.6 103/mcL Normal 0.1 - 1.4 10^3/mcL AO Workflow SS Monocytes/100 WBC (Bld) 10.0 % Normal 2.0 - 13.0 % AO Workflow SS Neutrophils (Bld) [#/Vol] 3.2 103/mcL Normal 2.3 - 8.1 10^3/mcL AO Workflow SS Neutrophils/100 WBC (Bld) 57.6 % Normal 50.0 - 75.0 % AO Workflow SS Platelet mean volume (Bld) [Entitic vol] 9.2 fL Normal 6.4 - 10.5 fL AO Workflow SS Platelets (Bld) [#/Vol] 102 103/mcL Low 150 - 450 10^3/mcL AO Workflow SS Potassium [Moles/Vol] 4.8 mmol/L Normal 3.5 - 5.1 mmol/L AO ADM SS Protein [Mass/Vol] 5.7 G/dL Low 6.4 - 8.2 G/dL AO ADM SS RBC (Bld) [#/Vol] 3.24 106/mcL Low 4.50 - 6.0 0 10^6/mcL AO Workflow SS Sodium [Moles/Vol] 141 mmol/L Normal 136 - 145 mmol/L AO ADM SS Urea nitrogen [Mass/Vol] 19 mg/dL High 7 - 18 mg/dL AO ADM SS Urea nitrogen/Creatinine [Mass ratio] 15 ratio Normal 7 - 27 ratio AO ADM SS WBC (Bld) [#/Vol] 5.5 103/mcL Normal 4.5 - 10.8 10^3/mcL AO Workflow SS LABORATORYOrdered By: Kennedy Garcia on 07-13-2024 Order Number [id number] Invalid Interpretation Code AO Sendouts SS Test Name Sedimentation Rate; ESR Invalid Interpretation Code AO Sendouts SS LABORATORYOrdered By: Apruve CONTRIBUTOR_SYSTEM on 07-13-2024 [facility] Test Result () COMMENT Invalid Interpretation Code AO Sendouts SS Comment on above: Result Comment: Test Ordered: [id number] Sedimentation Rate-Westergren Sedimentation Rate-Westergren 2 mm/hr Reference Range: 0-30 Performed At: [facility] [address] [id number] Salvatore Thomas PhD Ph:[phone] Meli 07-09-2024 HERONN Telephone (FAMPWS) MARIAN KOCH ([id number]) 1970 Date Time Provider Department 07/09/24 Dinaa TATE During your visit today, we recorded the following information about you: Sarah Landa LPN 07/09/2024 2:19 PM Signed Stephany with [facility] called to let you know they did an evaluation today for OT and pt is all ready doing the ADLs independently so no further OT is needed. Evaluation done only. No call back needed. Sarah Landa LPN Allergies As of Date: 07/09/2024 Noted Allergy Reaction BEE STING 02/20/2010 4 - Hives 7 - Swelling DARVOCET-N 100 (PROPOXYPHENE N-AC*02/20/2010 4 - Hives Date Reviewed: 07/07/2024 Reviewed by: Melissa Layne APRN.HARDBOARD PANEL PRINTER - Fully Assessed Reason for Visit: [facility], OT [Other] Prescriptions as of 07/10/2024 - Darbepoetin Sridevi In Polysorbat (ARANESP) 60 mcg/0.3 mL syrg Inject 0.3 mL subcutaneously one time a week. - doxazosin (CARDURA) 8 mg tablet Take 8 mg by mouth daily at bedtime. - metoprolol tartrate, short acting, (LOPRESSOR) 25 mg tablet Take 1 tablet by mouth every 12 hours. - pantoprazole DR (PROTONIX) 40 mg tablet Take 1 tablet by mouth every afternoon. - traMADol (ULTRAM) 50 mg tablet Take 50 mg by mouth every 6 hours as needed for pain. - ELIQUIS 5 mg tab(s) Take 5 mg by mouth two times a day. - clopidogrel (PLAVIX) 75 mg tablet Take by mouth once daily. - meropenem 2 gram solr Inject 2,000 mg intravenously once daily. - gabapentin (NEURONTIN) 300 mg capsule Take 1 capsule by mouth two times a day for 90 days. - tacrolimus ER (ASTAGRAF XL) 0.5 mg capsule Take 3 capsules by mouth every 24 hours. - Cholecalciferol, Vitamin D3, 50 mcg (2,000 unit) cap Take 100 mcg by mouth. - albuterol HFA (PROVENTIL HFA, VENTOLIN HFA) 90 mcg/actuation inhaler Inhale 2 Puffs as instructed every 6 hours as needed. - atorvastatin (LIPITOR) 80 mg tablet Take 1 tablet by mouth daily at bedtime. - predniSONE (DELTASONE) 5 mg tablet Take 1 tablet by mouth once daily. - acetaminophen (TYLENOL) 500 mg tablet Take 500 mg by mouth every 8 hours as needed. Problem List As Of Date 07/09/2024 Noted Resolved Renal failure, chronic, stage 3 (moderate) [N18*02/20/2010 CAD (coronary artery disease) [I25.10] 02/20/2010 Dialysis patient [Z99.2] 02/20/2010 11/28/2012 DVT (deep venous thrombosis) (HCC) [I82.409] 09/28/2010 VIC (obstructive sleep apnea) [G47.33] 08/04/2011 Depression [F32.A] 03/07/2012 H/O kidney transplant [Z94.0] 11/28/2012 GERD (gastroesophageal reflux disease) [K21.9] 03/05/2014 Chronic left-sided low back pain with left-side*06/21/2016 Bilateral leg pain [M79.604, M79.605] 11/28/2016 Iliotibial band syndrome [M76.30] 11/28/2016 Radiculopathy, lumbar region [M54.16] 11/28/2016 Claudication of both lower extremities (HCC) [I*08/22/2017 Neurogenic bladder [N31.9] 12/08/2017 Hyperparathyroidism (HCC) [E21.3] 12/08/2017 Hyperhomocysteinemia (HCC) [E72.11] 12/08/2017 Pulmonary nodules [R91.8] Renal stones [N20.0] RLQ abdominal pain [R10.31] 01/06/2018 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/07/2018 Coronary artery disease of [place] artery of grace*01/07/2018 Chronic pain syndrome [G89.4] 08/09/2018 Other osteoporosis without current pathological*09/21/2018 Current mild episode of major depressive disord*02/05/2019 COPD (chronic obstructive pulmonary disease) (H*06/09/2021 Mixed hyperlipidemia [E78.2] 06/09/2021 Palpitations [R00.2] 06/09/2021 Screen for colon cancer [Z12.11] 06/09/2021 06/14/2021 Cataracta [H26.9] 03/06/2022 Traumatic incomplete tear of left rotator cuff *09/15/2022 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 Abnormal EKG [R94.31] 12/14/2022 VHD (valvular heart disease) [I38] 12/17/2022 Pulmonary hypertension (HCC) [I27.20] 12/17/2022 S/P shoulder surgery [Z98.890] 01/25/2023 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] 03/31/2024 Encounter Status:Closed by SARAH LANDA on 07/10/24 Normal [facility] ESRon 07-09-2024 Erythrocyte Sed Rate <1 Normal 0-20 [facility] Comment on above: Performed By: #### C MP, ANEU, CBC, ADIFF, GFR #### [facility] [address] [address] LABORATORYOrdered By: Nigel Andre on 07-09-2024 ESR Photometric method (Bld) [Velocity] mm/hr Normal 0 - 20 mm/hr AO Man Heme SS CNOVon 07-07-2024 CNOV Office Visit (FAMPWS ) MARIAN KOCH ([id number]) 1970 M Date Time Provider Department 07/07/24 3:00 PM MELISSA LAYNE FAMPWS During your visit today, we recorded the following information about you: Pulse Respiration Blood pressure Weight 68/minute 18/minute 154/82 60.7 kg Melissa Layne, STORMY.HARDBOARD PANEL PRINTER 07/07/2024 3:56 PM Signed This is a 54 year old male who presents today with: No chief complaint on file. HISTORY OF PRESENT ILLNESS: Marian Koch is a 54 year old male. No chief complaint on file. Was at work in , headed to [employer]. Very hot day. A/C on. Started getting chilled. By the time he got to [place] to get part. Had to put heater on. Dropped the part off and went home. Fever and rigors. Tylenol didn't help, tempt went up. Went to Er. Had labs and CT scan. The next day he had to be vented. Dx with urosepsis. Hypotensive. Suffered Acute kidney injury. Sent to since he had renal transplant there. They did heart cath- couldn't reach blockage. Then had a second heart cath, found blockage in right side of heart. Severely damaged kidney transplant. Swelled up. Discharged. Went to [facility]. Abdominal fluids given. Intraosseous in leg fluid and lidocaine. Life-flight to . Back in ICU. In there a couple days. Went to rehab. Creatinine is now 1.4 (has been down to 1.1) On Meropenem and getting weekly labs Has home care through [place] and they draw labs PAST MEDICAL HISTORY: PAST MEDICAL HISTORY Diagnosis [...] AI 1-2+ Claudication of both lower extremities ([facility]) 08/22/2017 02/05/19 PVR Johana Vazqueznic: no stenosis [...] not accurate. COPD (chronic obstructive pulmonary disease) ([facility]) Coronary atherosclerosis of unspecified type of vessel, te-moak or graft Coronary artery disease Current mild episode of major depressive disorder ([facility]) 02/05/2019 Depression 03/07/2012 DVT (deep venous thrombosis) ([facility]) End stage renal disease (HCC) Due to blocked ureter as child GERD (gastroesophageal reflux disease) 03/05/2014 Hyperhomocysteinemia (HCC) 12/08/2017 Hyperparathyroidism ([facility]) 12/08/2017 Secondary to renal failure. On Sensipar in remote past. Kidney dialysis 1988, and 2000 Neurogenic bladder VIC (obstructive sleep apnea) 08/04/2011 declines CPAP Pulmonary embolism ([facility]) 10-12 years ago Pulmonary nodules Foreign body reaction in pulmonary vasculature, ? cause. Extensive evaluation ruled out vasculitis, fungal inffection, pneumoconiosis. May have been from gortex graft .Resulted in multiple pulmonary nodules. Radiculopathy, lumbar region 11/28/2016 Renal failure 02/20/2010 Renal failure, chronic, stage 3 (moderate) ([facility]) folllowing renal transplant Renal stones Steroid long-term [...] Sting and Darvocet-N 100 [Propoxyphene N-Acetaminophen] MEDICATIONS Current Outpatient Medications Medication Sig doxazosin (CARDURA) 8 mg tablet Take 8 mg by mouth daily at bedtime. metoprolol tartrate, short acting, (LOPRESSOR) 25 mg tablet Take 1 tablet by mouth every [address] (PROTONIX) 40 mg tablet Take 1 tablet by mouth every afternoon. traMADol (ULTRAM) 50 mg tablet Take 50 mg by mouth every 6 hours as needed for pain. ELIQUIS 5 mg tab(s) Take 5 mg by mouth two times a day. clopidogrel (PLAVIX) 75 mg tablet Take by mouth once daily. meropenem 2 gram solr Inject 2,000 mg intravenously once daily. Cholecalciferol, Vitamin D3, 50 mcg (2,000 unit) cap Take 100 mcg by mouth. albuterol HFA (PROVENTIL HFA, VENTOLIN HFA) 90 mcg/actuation inhaler Inhale 2 Puffs as instructed every 6 hours as needed. tacrolimus ER (ASTAGRAF XL) 1 mg capsule Take 1 capsule by mouth every 24 hours. 0.5mg daily (Patient taking differently: Take 1.5 mg by mouth every 24 hours.) gabapentin (NEURONTIN) (more content not included)... Normal [facility]07[facility] MAR[facility] KO[facility] ([id number]) 1970 M Date Time Provider Department 07/07/24 OK MENDOZA [facility] During your visit today, we recorded the following information about you: Facundo Garza LPN 07/07/2024 11:30 AM Signed Stephany from [facility] calling requesting new verbal order for OT, to extend to end of this week. Unable to schedule with patient due to his other appts. Please advise Ok Mendoza MD 07/07/2024 11:56 AM Signed Ok to do Candie Dinh MA 07/07/2024 1:30 PM Signed Detailed message left on secure VM for Stephany with Home Care. Gave ok for extended OT. Advised her to call back with any questions or concerns. Candie Dinh MA Allergies As of Date: 07/07/2024 Noted Allergy Reaction BEE STING 02/20/2010 4 - Hives 7 - Swelling DARVOCET-N 100 (PROPOXYPHENE N-AC*02/20/2010 4 - Hives Date Reviewed: 03/31/2024 Reviewed by: Melissa Galan LPN - Fully Assessed Reason for Visit: requesting verbal order [Other] Prescriptions as of 07/07/2024 - doxazosin (CARDURA) 8 mg tablet Take 8 mg by mouth daily at bedtime. - metoprolol tartrate, short acting, (LOPRESSOR) 25 mg tablet Take 1 tablet by mouth every 12 hours. - pantoprazole DR (PROTONIX) 40 mg tablet Take 1 tablet by mouth every afternoon. - traMADol (ULTRAM) 50 mg tablet Take 50 mg by mouth every 6 hours as needed for pain. - ELIQUIS 5 mg tab(s) Take 5 mg by mouth two times a day. - clopidogrel (PLAVIX) 75 mg tablet Take by mouth once daily. - ferrous sulfate 325 mg (65 mg iron) EC tablet Take 1 tablet by mouth. - Cholecalciferol, Vitamin D3, 50 mcg (2,000 unit) cap Take 100 mcg by mouth. - furosemide (LASIX) 20 mg tablet Take 20 mg by mouth every 48 hours. - albuterol HFA (PROVENTIL HFA, VENTOLIN HFA) 90 mcg/actuation inhaler Inhale 2 Puffs as instructed every 6 hours as needed. - tacrolimus ER (ASTAGRAF XL) 1 mg capsule Take 1 capsule by mouth every 24 hours. 0.5mg daily - gabapentin (NEURONTIN) 300 mg capsule Take 1 capsule by mouth three times a day for 90 days. - omeprazole (PRILOSEC) 40 mg capsule Take 1 capsule by mouth once daily. - sulfamethoxazole-trimethopri m (BACTRIM) 400-80 mg per tablet Take 1 tablet by mouth every afternoon. - alendronate (FOSAMAX) 70 mg tablet Take 1 tablet by mouth one time a week. Take with a full glass of water, on an empty stomach; do NOT lie down for 30minutes. - atorvastatin (LIPITOR) 80 mg tablet Take 1 tablet by mouth daily at bedtime. - CARDURA XL 8 mg 24 hr tablet TAKE 1 TABLET BY MOUTH EVERY DAY WITH BREAKFAST - predniSONE (DELTASONE) 5 mg tablet Take 1 tablet by mouth once daily. - amLODIPine (NORVASC) 5 mg tablet Take 10 mg by mouth once daily. - carvedilol (COREG) 25 mg tablet Take 1 tablet by mouth twice daily with meals. - acetaminophen (TYLENOL) 500 mg tablet Take 500 mg by mouth every 8 hours as needed. - mycophenolate mofetil (CELLCEPT) 250 mg capsule Take 500 mg by mouth twice daily. - magnesium oxide 400 mg cap Take 1 capsule by mouth twice daily. - ASPIRIN 81 MG TAB Take one(1) tablet daily. Problem List As Of Date 07/07/2024 Noted Resolved Renal failure, chronic, stage 3 (moderate) [N18*02/20/2010 CAD (coronary artery disease) [I25.10] 02/20/2010 Dialysis patient [Z99.2] 02/20/2010 11/28/2012 DVT (deep venous thrombosis) ([facility]) [I82.409] 09/28/2010 VIC (obstructive sleep apnea) [G47.33] 08/04/2011 Depression [F32.A] 03/07/2012 H/O kidney transplant [Z94.0] 11/28/2012 GERD (gastroesophageal reflux disease) [K21.9] 03/05/2014 Chronic left-sided low back pain with left-side*06/21/2016 Bilateral leg pain [M79.604, M79.605] 11/28/2016 Iliotibial band syndrome [M76.30] 11/28/2016 Radiculopathy, lumbar region [M54.16] 11/28/2016 Claudication of both lower extremities (HCC) [I*08/22/2017 Neurogenic bladder [N31.9] 12/08/2017 Hyperparathyroidism (HCC) [E21.3] 12/08/2017 Hyperhomocysteinemia (HCC) [E72.11] 12/08/2017 Pulmonary nodules [R91.8] Renal stones [N20.0] RLQ abdominal pain [R10.31] 01/06/2018 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/07/2018 Coronary artery disease of [place] artery of grace*01/07/2018 Chronic pain syndrome [G89.4] 08/09/2018 Other osteoporosis without current pathological*09/21/2018 Current mild episode of major depressive disord*02/05/2019 COPD (chronic obstructive pulmonary disease) (H*06/09/2021 Mixed hyperlipidemia [E78.2] 06/09/2021 Palpitations [R00.2] 06/09/2021 Screen for colon cancer [Z12.11] 06/09/2021 06/14/2021 Cataracta [H26.9] 03/06/2022 Traumatic incomplete tear of left rotator cuff *09/15/2022 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 Abnormal EKG [R94.31] 12/14/2022 VHD (valvular heart disease) [I38] 12/17/2022 Pulmonary hypertension (HCC) [I27.20] 12/17/2022 S/P shoulder surgery [Z98.890] 01/25/2023 Scarring (more content not included)... Normal [facility] XR CHEST 2V FRONTAL/LATon XR CHEST 2V FRONTAL/LAT * * *Final Report* * * DATE OF EXAM: Jul 07 2024 4:54PM WOX 5291 - XR CHEST 2V FRONTAL/LAT / PROCEDURE REASON: Right-sided thoracic back pain, unspecified chronicity * * * * Physician Interpretation * * * * EXAMINATION: CHEST RADIOGRAPH (2 VIEW FRONTAL and LATERAL) CLINICAL HISTORY: Right-sided thoracic back pain, unspecified chronicity MQ: XC2_6 EXAM DATE/TIME: 07/07/2024 4:54 PM COMPARISON: 03/31/2024 RESULT: Lines, tubes, and devices: Median sternotomy wires. Left-sided central venous catheter with tip seen superimposed over the expected location of the cavoatrial junction. Right-sided subclavian vascular stent. Multiple surgical clips in the visualized right arm. Lungs and pleura: Stable bilateral calcified pleural plaques. Stable blunting of the left lateral costophrenic angle. Slight increase in blunting of the right lateral costophrenic angle with adjacent slight pleural thickening suggesting small pleural effusion. No consolidation. No evidence of pneumothorax. Cardiomediastinal silhouette: Stable cardiomediastinal silhouette. Bones and soft tissues: Median sternotomy wires. Mild degenerative changes in the spine. Surgical clips in the upper abdomen. Several abandoned epicardial leads. Mediastinal clips. IMPRESSION: 1. Development of small right pleural effusion. 2. Otherwise stable chronic findings. Glass Vial Bending Conveyor Feeder: RADHA Transcribe Date/Time: Jul 07 2024 5:18P Dictated by : MARIAN ERICKSON MD This examination was interpreted and the report reviewed and electronically signed by: MARIAN ERICKSON MD on Jul 07 2024 5:22PM EST [id number] Normal [facility] XR Chest PA and Lateralon IMPRESSION: 1. Development of small right pleural effusion. 2. Otherwise stable chronic findings. Glass Vial Bending Conveyor Feeder: RADHA Transcribe Date/Time: Jul 07 2024 5:18P Dictated by : MARIAN ERICKSON MD This examination was interpreted and the report reviewed and electronically signed by: MARIAN ERICKSON MD on Jul 07 2024 5:22PM [facility] DIV[facility] * * *Final Report* * * DATE OF EXAM: Jul 07 2024 4:54PM WOX 5291 - XR CHEST 2V FRONTAL/LAT / PROCEDURE REASON: Right-sided thoracic back pain, unspecified chronicity * * * * Physician Interpretation * * * * EXAMINATION: CHEST RADIOGRAPH (2 VIEW FRONTAL & LATERAL) CLINICAL HISTORY: Right-sided thoracic back pain, unspecified chronicity MQ: XC2_6 EXAM DATE/TIME: 07/07/2024 4:54 PM COMPARISON: 03/31/2024 RESULT: Lines, tubes, and devices: Median sternotomy wires. Left-sided central venous catheter with tip seen superimposed over the expected location of the cavoatrial junction. Right-sided subclavian vascular stent. Multiple surgical clips in the visualized right arm. Lungs and pleura: Stable bilateral calcified pleural plaques. Stable blunting of the left lateral costophrenic angle. Slight increase in blunting of the right lateral costophrenic angle with adjacent slight pleural thickening suggesting small pleural effusion. No consolidation. No evidence of pneumothorax. Cardiomediastinal silhouette: Stable cardiomediastinal silhouette. Bones and soft tissues: Median sternotomy wires. Mild degenerative changes in the spine. Surgical clips in the upper abdomen. Several abandoned epicardial leads. Mediastinal clips. DIVISION OF RADIOLOGY Provider, [facility] - 07/07/2024 * * *Final Report* * * DATE OF EXAM: Jul 07 2024 4:54PM WOX 5291 - XR CHEST 2V FRONTAL/LAT / PROCEDURE REASON: Right-sided thoracic back pain, unspecified chronicity * * * * Physician Interpretation * * * * EXAMINATION: CHEST RADIOGRAPH (2 VIEW FRONTAL & LATERAL) CLINICAL HISTORY: Right-sided thoracic back pain, unspecified chronicity MQ: XC2_6 EXAM DATE/TIME: 07/07/2024 4:54 PM COMPARISON: 03/31/2024 RESULT: Lines, tubes, and devices: Median sternotomy wires. Left-sided central venous catheter with tip seen superimposed over the expected location of the cavoatrial junction. Right-sided subclavian vascular stent. Multiple surgical clips in the visualized right arm. Lungs and pleura: Stable bilateral calcified pleural plaques. Stable blunting of the left lateral costophrenic angle. Slight increase in blunting of the right lateral costophrenic angle with adjacent slight pleural thickening suggesting small pleural effusion. No consolidation. No evidence of pneumothorax. Cardiomediastinal silhouette: Stable cardiomediastinal silhouette. Bones and soft tissues: Median sternotomy wires. Mild degenerative changes in the spine. Surgical clips in the upper abdomen. Several abandoned epicardial leads. Mediastinal clips. IMPRESSION IMPRESSION: 1. Development of small right pleural effusion. 2. Otherwise stable chronic findings. Glass Vial Bending Conveyor Feeder: PSCServando Transcribe Date/Time: Jul 07 2024 5:18P Dictated by : MARIAN ERICKSON MD This examination was interpreted and the report reviewed and electronically signed by: MARIAN ERICKSON MD on Jul 07 2024 5:22PM [facility] Radiology Study observation (narrative) [facility] XR Chest PA and LateralOrder ed By: Ccf Provider on 07-07-2024 [facility] .Auto Diffon 07-06-2024 Basophil, Absolute 0.0 10 3/mcL Normal 0.0-0.2 [facility] Comment on above: Performed By: #### A DIFF, CMP, CRP, GFR, CBC, ANEU #### [address] [address] Basophils/100 WBC (Bld) 1.0 % Normal 0.0-2.5 [facility] Comment on above: Performed By: #### A DIFF, CMP, CRP, GFR, CBC, ANEU #### [address] [address] Eosinophil, Absolute 0.2 10 3/mcL Normal 0.0-0.7 [facility] Comment on above: Performed By: #### A DIFF, CMP, CRP, GFR, CBC, ANEU #### [address] [address] Eosinophils/100 WBC (Bld) 4.7 % Normal 0.0-7.0 [facility] Comment on above: Performed By: #### A DIFF, CMP, CRP, GFR, CBC, ANEU #### [address] [place], [place] [address] Lymphocyte, Absolute 1.0 10 3/mcL Normal 0.9-4.3 [facility] Comment on above: Performed By: #### A DIFF, CMP, CRP, GFR, CBC, ANEU #### [address] [address] Lymphocytes/100 WBC (Bld) 23.1 % Normal 20.0-40.0 [facility] Comment on above: Performed By: #### A DIFF, CMP, CRP, GFR, CBC, ANEU #### [address] [address] Monocyte, Absolute 0.5 10 3/mcL Normal 0.1-1.4 [facility] Comment on above: Performed By: #### A DIFF, CMP, CRP, GFR, CBC, ANEU #### [address] [address] Monocytes/100 WBC (Bld) 10.8 % Normal 2.0-13.0 [facility] Comment on above: Performed By: #### A DIFF, CMP, CRP, GFR, CBC, ANEU #### [address] [address] Neutrophils/100 WBC (Bld) 60.4 % Normal 50.0-75.0 [facility] Comment on above: Performed By: #### A DIFF, CMP, CRP, GFR, CBC, ANEU #### [address] [address] .GFRon 07-06-2024 GFR Non- 65 ml/min/1.73sqm Normal [facility] Comment on above: Result Comment: GFR Population mean for , Non- Americans Ages 20-29 = 116 mL/min/1.73 sq.m. Ages 30-39 = 107 mL/min/1.73 sq.m. Ages 40-49 = 99 mL/min/1.73 sq.m. Ages 50-59 = 93 mL/min/1.73 sq.m. Ages 60-69 = 85 mL/min/1.73 sq.m. Ages 70+ = 75 mL/min/1.73 sq.m. Chronic Kidney Disease: Less than 60 mL/min/1.73 square meters End Stage Renal Disease: Less than 15 mL/min/1.73 square meters Performed By: #### C MP, ANEU, CBC, ADIFF, GFR #### [address] [address] GFR 78 ml/min/1.73sqm Normal [facility] Comment on above: Result Comment: GFR Population mean for , Non- Americans Ages 20-29 = 116 mL/min/1.73 sq.m. Ages 30-39 = 107 mL/min/1.73 sq.m. Ages 40-49 = 99 mL/min/1.73 sq.m. Ages 50-59 = 93 mL/min/1.73 sq.m. Ages 60-69 = 85 mL/min/1.73 sq.m. Ages 70+ = 75 mL/min/1.73 sq.m. Chronic Kidney Disease: Less than 60 mL/min/1.73 square meters End Stage Renal Disease: Less than 15 mL/min/1.73 square meters Performed By: #### C MP, ANEU, CBC, ADIFF, GFR #### [address] [address] .NEUABSon 07-06-2024 Neutrophil, Absolute 2.6 10 3/mcL Normal 2.3-8.1 [facility] Comment on above: Performed By: #### A DIFF, CMP, CRP, GFR, CBC, ANEU #### [address] [address] CBCon 07-06-2024 Erythrocyte distribution width (RBC) [Ratio] 17.2 % High 11.5-15.5 [facility] Comment on above: Performed By: #### A DIFF, CMP, CRP, GFR, CBC, ANEU #### [address] [address] Hematocrit (Bld) [Volume fraction] 29.8 % Low 40.0-52.0 [facility] Comment on above: Performed By: #### A DIFF, CMP, CRP, GFR, CBC, ANEU #### [address] [address] Hgb 9.6 G/dL Low 13.0-17.5 [facility] Comment on above: Performed By: #### A DIFF, CMP, CRP, GFR, CBC, ANEU #### [address] [address] MCH (RBC) [Entitic mass] 29.7 pg Normal 27.0-33.0 [facility] Comment on above: Performed By: #### A DIFF, CMP, CRP, GFR, CBC, ANEU #### [place] [address] MCHC 32.3 G/dL Normal 32.0-36.0 [facility] Comment on above: Performed By: #### A DIFF, CMP, CRP, GFR, CBC, ANEU #### [address] [address] MCV (RBC) [Entitic vol] 91.9 fL Normal 81.0-100.0 [facility] Comment on above: Performed By: #### A DIFF, CMP, CRP, GFR, CBC, ANEU #### [address] [address] Platelet 118 10 3/mcL Low 150-450 [facility] Comment on above: Performed By: #### A DIFF, CMP, CRP, GFR, CBC, ANEU #### [address] [address] Platelet mean volume (Bld) [Entitic vol] 9.4 fL Normal 6.4-10.5 [facility] Comment on above: Performed By: #### A DIFF, CMP, CRP, GFR, CBC, ANEU #### [address] [address] RBC 3.24 10 6/mcL Low 4.50-6.00 [facility] Comment on above: Performed By: #### A DIFF, CMP, CRP, GFR, CBC, ANEU #### [address] [address] WBC 4.3 10 3/mcL Low 4.5-10.8 [facility] Comment on above: Performed By: #### A DIFF, CMP, CRP, GFR, CBC, ANEU #### [address] [id number] CMPon 07-06-2024 Albumin Level 2.9 G/dL Low 3.5-5.0 [facility] Comment on above: Performed By: #### A DIFF, CMP, CRP, GFR, CBC, ANEU #### [place] [address] Albumin/Globulin [Mass ratio] 1.1 {ratio} Normal 1.1-2.5 [facility] Comment on above: Performed By: #### A DIFF, CMP, CRP, GFR, CBC, ANEU #### [place] [address] ALP [Catalytic activity/Vol] 154 U/L High 40-135 [facility] Comment on above: Performed By: #### A DIFF, CMP, CRP, GFR, CBC, ANEU #### [place] [address] ALT [Catalytic activity/Vol] 31 U/L Normal 16-63 [facility] Comment on above: Performed By: #### A DIFF, CMP, CRP, GFR, CBC, ANEU #### [address] [place] [address] AST [Catalytic activity/Vol] 24 U/L Normal 10-40 [facility] Comment on above: Performed By: #### A DIFF, CMP, CRP, GFR, CBC, ANEU #### [address] [place] [address] Bili Total 0.7 mg/dL Normal 0.2-1.0 [facility] Comment on above: Result Comment: Use of this assay is not recommended for patients undergoing treatment with eltrombopag due to the potential for falsely elevated results. Performed By: #### A DIFF, CMP, CRP, GFR, CBC, ANEU #### [address] [place] [address] BUN/Creatinine Ratio 15 ratio Normal 7-27 [facility] Comment on above: Performed By: #### A DIFF, CMP, CRP, GFR, CBC, ANEU #### [place] [address] Calcium [Mass/Vol] 9.5 mg/dL Normal 8.4-10.2 [facility] Comment on above: Performed By: #### A DIFF, CMP, CRP, GFR, CBC, ANEU #### [place] [address] Chloride [Moles/Vol] 109 mmol/L High 98-107 [facility] Comment on above: Performed By: #### A DIFF, CMP, CRP, GFR, CBC, ANEU #### [place] [address] CO2 [Moles/Vol] 24 mmol/L Normal 22-29 [facility] Comment on above: Performed By: #### A DIFF, CMP, CRP, GFR, CBC, ANEU #### [place] [address] Creatinine [Mass/Vol] 1.17 mg/dL Normal 0.70-1.30 [facility] Comment on above: Result Comment: Test ing performed on Siemens Dimension EXL analyzer using a modified kinetic Maryjane technique. Performed By: #### A DIFF, CMP, CRP, GFR, CBC, ANEU #### [address] [place] [address] Electrolyte Balance 8.0 mEq/L Normal 4.0-15.0 [facility] Comment on above: Performed By: #### A DIFF, CMP, CRP, GFR, CBC, ANEU #### [address] [place] [address] Globulin 2.6 G/dL Normal [facility] Comment on above: Performed By: #### A DIFF, CMP, CRP, GFR, CBC, ANEU #### [address] [place] [address] Glucose [Mass/Vol] 107 mg/dL High 70-105 [facility] Comment on above: Performed By: #### A DIFF, CMP, CRP, GFR, CBC, ANEU #### [address] [place], [place] [address] Potassium [Moles/Vol] 4.8 mmol/L Normal 3.5-5.1 [facility] Comment on above: Performed By: #### A DIFF, CMP, CRP, GFR, CBC, ANEU #### [address] [place], [place] [address] Sodium [Moles/Vol] 141 mmol/L Normal 136-145 [facility] Comment on above: Performed By: #### A DIFF, CMP, CRP, GFR, CBC, ANEU #### [address] [place], [place] [address] Total Protein 5.5 G/dL Low 6.4-8.2 [facility] Comment on above: Performed By: #### A DIFF, CMP, CRP, GFR, CBC, ANEU #### [address] [address] Urea nitrogen [Mass/Vol] 17 mg/dL Normal 7-18 [facility] Comment on above: Performed By: #### A DIFF, CMP, CRP, GFR, CBC, ANEU #### [address] [address] CNPNon 07-06-2024 CNPN [facility] MARIAN KOCH ([id number]) 1970 Diana Date Time Provider Department 07/06/24 [facility] During your visit today, we recorded the following information about you: Courtney Klein, JENNIFER 07/06/2024 3:08 PM Signed Johnny PT calling from [facility] to report plan of care for patient and PT will visit patient one time a week for first week and one time a week for one week. Johnny reports that patient is getting around fairly well and didn't identify any PT needs. Will check back with patient one more time next week to make sure nothing changes. No call back needed unless provider has questions [phone]. JENNIFER Tovar Krystle, RN 07/07/2024 2:23 PM Signed Charu RN calling from [facility] to report plan of care for patient and SN will visit patient one time a week for six weeks. SN will work with patient on PICC Care, Labs, and medication management/education. No call back needed unless provider has questions at [phone]. JENNIFER Tovar Jacqueline A, APRN.HARDBOARD PANEL PRINTER 07/07/2024 5:11 PM Addendum Please contact Charu and ask if they are giving darbepoetin? Pt. Was to get it weekly. Not sure who ordered it... usually renal Also, we would like a copy of hospital discharge and weekly labs Discharge order: darbepoetin 60 mcg (0.3ml) injection weekly Colleen Bueno LPN 07/08/2024 10:41 AM Signed Charu reports that patient does not have medication at home and is checking with pharmacy about availability of rock picker. Charu is not sure if this is new to him or not? Also not sure of who ordered? She thought that maybe we could check with family? Melissa Layne APRN.HARDBOARD PANEL PRINTER 07/09/2024 7:57 AM Signed Surgery forI will order this. 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 He needs a follow up with nephrology. Does he have a doctor that he follows with? Please get an appt. JACINTO. They should be following this. Not usually a Primary Care Management. We aren't even getting the necessary labs done by [place] weekly? Melissa Layne APRN.HARDBOARD PANEL PRINTER 07/09/2024 10:51 AM Signed Also, please let him know that he does not have a pneumonia. He does have some fluid in the right lung base that has accumulated from fluid overload. It is mild. Remember to take some deep cleansing breaths to expand that lung base. Nikki Ramírez MA 07/09/2024 3:57 PM Signed Pt notified of xray results. His sap abap programmer is Dr Sellers, I will fax over the office visit note, along with the rehab records to get his injections started. Pt is calling nephrology as well to set up his follow up. Nikki Ramírez MA 07/09/2024 5:03 PM Signed Upon further review, on pt's rehab discharge instructions, pt has virtual visit on 07/17/24 with Infectious disease, Dr Tatum on 07/17/24 at 10:40 am. Appt with Transplant team, Dr Sellers, nephrology, on 07/22/24 at 8 am[address] Urology, Dr Janel Vega on 08/03/24 at 3 pm. I will call home health nurse tomorrow. Nikki Ramírez MA 07/10/2024 12:50 PM Signed Home Health nurse off today. Faxed information to Nephro for injection. Pt also asked for Cardiac rehab order to be faxed to [facility], order placed on provider desk to be signed Nikki Ramírez MA July 10, 2024 12:04 PM Nikki Ramírez MA 07/10/2024 2:19 PM Signed Signed cardiac rehab order faxed to [facility]. 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 - doxazosin (CARDURA) 8 mg tablet Take 8 mg by mouth daily at bedtime. - metoprolol tartrate, short acting, (LOPRESSOR) 25 mg tablet Take 1 tablet by mouth every 12 hours. - pantoprazole DR (PROTONIX) 40 mg tablet Take 1 tablet by mouth every afternoon. - traMADol (ULTRAM) 50 mg tablet Take 50 mg by mouth every 6 hours as needed for pain. - ELIQUIS 5 mg tab(s) Take 5 mg by mouth two times a day. - clopidogrel (PLAVIX) 75 mg tablet Take by mouth once daily. - meropenem 2 gram solr Inject 2,000 mg intravenously once daily. - gabapentin (NEURONTIN) 300 mg capsule Take 1 capsule by mouth two times a day for 90 days. - tacrolimus ER (ASTAGRAF XL) 0.5 mg capsule Take 3 capsules by mouth every 24 hours. - Cholecalciferol, Vitamin D3, 50 mcg (2,000 unit) cap Take 100 mcg by mouth. - albuterol HFA (VT (more content not included)... Normal [facility] CRPon 07-06-2024 C-Reactive Protein 0.5 mg/dL High 0.0-0.3 [facility] Comment on above: Performed By: #### A DIFF, CMP, CRP, GFR, CBC, ANEU #### [place] [address] LABORATORYOrdered By: SYSTEM SYSTEM on 07-06-2024 Albumin BCP dye [Mass/Vol] 2.9 G/dL Low 3.5 - 5.0 G/dL AO ADM SS Albumin/Globulin [Mass ratio] 1.1 {ratio} Normal 1.1 - 2.5 ratio AO ADM SS ALP [Catalytic activity/Vol] 154 U/L High 40 - 135 U/L AO ADM SS ALT With P-5'-P [Catalytic activity/Vol] 31 U/L Normal 16 - 63 U/L AO ADM SS AST With P-5'-P [Catalytic activity/Vol] 24 U/L Normal 10 - 40 U/L AO ADM SS Basophils (Bld) [#/Vol] 0.0 103/mcL Normal 0.0 - 0.2 10^3/mcL AO Workflow SS Basophils/100 WBC (Bld) 1.0 % Normal 0.0 - 2.5 % AO Workflow SS Bilirubin [Mass/Vol] 0.7 mg/dL Normal 0.2 - 1.0 mg/dL AO ADM SS Comment on above: Interpretive Data: U se of this assay is not recommended for patients undergoing treatment with eltrombopag due to the potential for falsely elevated results. Calcium [Mass/Vol] 9.5 mg/dL Normal 8.4 - 10. 2 mg/dL AO ADM SS Chloride [Moles/Vol] 109 mmol/L High 98 - 107 mmol/L AO ADM SS CO2 [Moles/Vol] 24 mmol/L Normal 22 - 29 mmol/L AO ADM SS Creatinine [Mass/Vol] 1.17 mg/dL Normal 0.70 - 1.30 mg/dL AO ADM SS Comment on above: Interpretive Data: T esting performed on Siemens Dimension EXL analyzer using a modified kinetic Maryjane technique. CRP [Mass/Vol] 0.5 mg/dL High 0.0 - 0.3 mg/dL AO ADM SS Electrolyte Balance 8.0 mEq/L Normal 4.0 - 15 .0 mEq/L AO ADM SS Eosinophil, Absolute 0.2 103/mcL Normal 0.0 - 0.7 10^3/mcL AO Workflow SS Eosinophils/100 WBC (Bld) 4.7 % Normal 0.0 - 7.0 % AO Workflow SS Erythrocyte distribution width (RBC) [Ratio] 17.2 % High 11.5 - 15.5 % AO Workflow SS GFR/1.73 sq M.predicted among blacks MDRD (S/P/Bld) [Vol rate/Area] 78 ml/min/1.73sqm Invalid Interpretation Code AO Chemistry S Comment on above: Interpretive Data: GFR Population mean for , Non- Americans Ages 20-29 = 116 mL/min/1.73 sq.m. Ages 30-39 = 107 mL/min/1.73 sq.m. Ages 40-49 = 99 mL/min/1.73 sq.m. Ages 50-59 = 93 mL/min/1.73 sq.m. Ages 60-69 = 85 mL/min/1.73 sq.m. Ages 70+ = 75 mL/min/1.73 sq.m. Chronic Kidney Disease: Less than 60 mL/min/1.73 square meters End Stage Renal Disease: Less than 15 mL/min/1.73 square meters GFR/1.73 sq M.predicted among non-blacks MDRD (S/P/Bld) [Vol rate/Area] 65 ml/min/1.73sqm Invalid Interpretation Code AO Chemistry S Comment on above: Interpretive Data: GFR Population mean for , Non- Americans Ages 20-29 = 116 mL/min/1.73 sq.m. Ages 30-39 = 107 mL/min/1.73 sq.m. Ages 40-49 = 99 mL/min/1.73 sq.m. Ages 50-59 = 93 mL/min/1.73 sq.m. Ages 60-69 = 85 mL/min/1.73 sq.m. Ages 70+ = 75 mL/min/1.73 sq.m. Chronic Kidney Disease: Less than 60 mL/min/1.73 square meters End Stage Renal Disease: Less than 15 mL/min/1.73 square meters Globulin 2.6 G/dL Invalid Interpretation Code AO ADM SS Glucose [Mass/Vol] 107 mg/dL High 70 - 105 mg/dL AO ADM SS Hematocrit (Bld) [Volume fraction] 29.8 % Low 40.0 - 52.0 % AO Workflow SS Hemoglobin (Bld) [Mass/Vol] 9.6 G/dL Low 13.0 - 17.5 G/dL AO Workflow SS Lymphocytes (Bld) [#/Vol] 1.0 103/mcL Normal 0.9 - 4.3 10^3/mcL AO Workflow SS Lymphocytes/100 WBC (Bld) 23.1 % Normal 20.0 - 40.0 % AO Workflow SS MCH (RBC) [Entitic mass] 29.7 pg Normal 27.0 - 33.0 pg AO Workflow SS MCHC 32.3 G/dL Normal 32.0 - 36.0 G/dL AO Workflow SS MCV (RBC) [Entitic vol] 91.9 fL Normal 81.0 - 100.0 fL AO Workflow SS Monocytes (Bld) [#/Vol] 0.5 103/mcL Normal 0.1 - 1.4 10^3/mcL AO Workflow SS Monocytes/100 WBC (Bld) 10.8 % Normal 2.0 - 13.0 % AO Workflow SS Neutrophils (Bld) [#/Vol] 2.6 103/mcL Normal 2.3 - 8.1 10^3/mcL AO Workflow SS Neutrophils/100 WBC (Bld) 60.4 % Normal 50.0 - 75.0 % AO Workflow SS Platelet mean volume (Bld) [Entitic vol] 9.4 fL Normal 6.4 - 10.5 fL AO Workflow SS Platelets (Bld) [#/Vol] 118 103/mcL Low 150 - 450 10^3/mcL AO Workflow SS Potassium [Moles/Vol] 4.8 mmol/L Normal 3.5 - 5.1 mmol/L AO ADM SS Protein [Mass/Vol] 5.5 G/dL Low 6.4 - 8.2 G/dL AO ADM SS RBC (Bld) [#/Vol] 3.24 106/mcL Low 4.50 - 6.0 0 10^6/mcL AO Workflow SS Sodium [Moles/Vol] 141 mmol/L Normal 136 - 145 mmol/L AO ADM SS Urea nitrogen [Mass/Vol] 17 mg/dL Normal 7 - 18 mg/dL AO ADM SS Urea nitrogen/Creatinine [Mass ratio] 15 ratio Normal 7 - 27 ratio AO ADM SS WBC (Bld) [#/Vol] 4.3 103/mcL Low 4.5 - 10.8 10^3/mcL AO Workflow SS [facility] MARIAN KOCH ([id number]) 1970 Date Time Provider Department 07/01/24 Diana TATE [facility] During your visit today, we recorded the following information about you: Sarah Landa LPN 07/01/2024 12:25 PM Signed Bre with [facility] calling to see if you will follow pt for Home Care, nursing, PT and OT. DX septic shock. Pt is being d/c from [facility] Saturday07-03-24. Please advise Bre with [facility] with verbal orders. ANTWAN Gill William J, MD 07/01/2024 12:36 PM Signed ok Facundo Garza LPN 07/01/2024 1:14 PM Signed Phoned [facility] and spoke to Facundo went over notes from Dr Mendoza with understanding. Allergies As of Date: 07/01/2024 Noted Allergy Reaction BEE STING 02/20/2010 4 - Hives 7 - Swelling DARVOCET-N 100 (PROPOXYPHENE N-AC*02/20/2010 4 - Hives Date Reviewed: 03/31/2024 Reviewed by: Melissa Galan LPN - Fully Assessed Reason for Visit: [facility] - verbal orders [Other] Prescriptions as of 07/01/2024 - ferrous sulfate 325 mg (65 mg iron) EC tablet Take 1 tablet by mouth. - Cholecalciferol, Vitamin D3, 50 mcg (2,000 unit) cap Take 100 mcg by mouth. - furosemide (LASIX) 20 mg tablet Take 20 mg by mouth every 48 hours. - albuterol HFA (PROVENTIL HFA, VENTOLIN HFA) 90 mcg/actuation inhaler Inhale 2 Puffs as instructed every 6 hours as needed. - tacrolimus ER (ASTAGRAF XL) 1 mg capsule Take 1 capsule by mouth every 24 hours. 0.5mg daily - ipratropium-albuterol (DUONEB) 0.5 mg-3 mg(2.5 mg base)/3 mL nebu Inhale 3 mL as instructed every 6 hours as needed for wheezing/shortness of breath. - gabapentin (NEURONTIN) 300 mg capsule Take 1 capsule by mouth three times a day for 90 days. - omeprazole (PRILOSEC) 40 mg capsule Take 1 capsule by mouth once daily. - sulfamethoxazole-trimethopri m (BACTRIM) 400-80 mg per tablet Take 1 tablet by mouth every afternoon. - Fluorouracil 5 % cream - alendronate (FOSAMAX) 70 mg tablet Take 1 tablet by mouth one time a week. Take with a full glass of water, on an empty stomach; do NOT lie down for 30minutes. - atorvastatin (LIPITOR) 80 mg tablet Take 1 tablet by mouth daily at bedtime. - CARDURA XL 8 mg 24 hr tablet TAKE 1 TABLET BY MOUTH EVERY DAY WITH BREAKFAST - predniSONE (DELTASONE) 5 mg tablet Take 1 tablet by mouth once daily. - amLODIPine (NORVASC) 5 mg tablet Take 10 mg by mouth once daily. - carvedilol (COREG) 25 mg tablet Take 1 tablet by mouth twice daily with meals. - acetaminophen (TYLENOL) 500 mg tablet Take 500 mg by mouth every 8 hours as needed. - mycophenolate mofetil (CELLCEPT) 250 mg capsule Take 500 mg by mouth twice daily. - magnesium oxide 400 mg cap Take 1 capsule by mouth twice daily. - ASPIRIN 81 MG TAB Take one(1) tablet daily. Problem List As Of Date 07/01/2024 Noted Resolved Renal failure, chronic, stage 3 (moderate) [N18*02/20/2010 CAD (coronary artery disease) [I25.10] 02/20/2010 Dialysis patient [Z99.2] 02/20/2010 11/28/2012 DVT (deep venous thrombosis) ([facility]) [I82.409] 09/28/2010 VIC (obstructive sleep apnea) [G47.33] 08/04/2011 Depression [F32.A] 03/07/2012 H/O kidney transplant [Z94.0] 11/28/2012 GERD (gastroesophageal reflux disease) [K21.9] 03/05/2014 Chronic left-sided low back pain with left-side*06/21/2016 Bilateral leg pain [M79.604, M79.605] 11/28/2016 Iliotibial band syndrome [M76.30] 11/28/2016 Radiculopathy, lumbar region [M54.16] 11/28/2016 Claudication of both lower extremities (HCC) [I*08/22/2017 Neurogenic bladder [N31.9] 12/08/2017 Hyperparathyroidism (HCC) [E21.3] 12/08/2017 Hyperhomocysteinemia (HCC) [E72.11] 12/08/2017 Pulmonary nodules [R91.8] Renal stones [N20.0] RLQ abdominal pain [R10.31] 01/06/2018 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/07/2018 Coronary artery disease of [place] artery of [place]*01/07/2018 Chronic pain syndrome [G89.4] 08/09/2018 Other osteoporosis without current pathological*09/21/2018 Current mild episode of major depressive disord*02/05/2019 COPD (chronic obstructive pulmonary disease) (H*06/09/2021 Mixed hyperlipidemia [E78.2] 06/09/2021 Palpitations [R00.2] 06/09/2021 Screen for colon cancer [Z12.11] 06/09/2021 06/14/2021 Cataracta [H26.9] 03/06/2022 Traumatic incomplete tear of left rotator cuff *09/15/2022 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 Abnormal EKG [R94.31] 12/14/2022 VHD (valvular heart disease) [I38] 12/17/2022 Pulmonary hypertension (HCC) [I27.20] 12/17/2022 S/P shoulder surgery [Z98.890] 01/25/2023 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] 03/31/2024 Encounter Status:Closed by FACUNDO GARZA on 07/01/24 Normal [facility] .Auto Diffon 06-29-2024 Basophil, Absolute 0.0 10 3/mcL Normal 0.0-0.3 [facility] Comment on above: Performed By: #### C RP, GFR, ANEU, ESR, CMP, CBC, MORPH, ADIFF #### [address] [address] Basophils/100 WBC (Bld) 1.3 % Normal 0.0-2.5 [facility] Comment on above: Performed By: #### C RP, GFR, ANEU, ESR, CMP, CBC, MORPH, ADIFF #### [place] [id number] [place] [id number] Eosinophil, Absolute 0.1 10 3/mcL Normal 0.0-0.7 [facility] Comment on above: Performed By: #### C RP, GFR, ANEU, ESR, CMP, CBC, MORPH, ADIFF #### [place] [id number] [place] [address] Eosinophils/100 WBC (Bld) 3.7 % Normal 0.0-6.0 [facility] Comment on above: Performed By: #### C RP, GFR, ANEU, ESR, CMP, CBC, MORPH, ADIFF #### [address] [address] Lymphocyte, Absolute 1.3 10 3/mcL Normal 0.9-4.3 [facility] Comment on above: Performed By: #### C RP, GFR, ANEU, ESR, CMP, CBC, MORPH, ADIFF #### [address] [address] Lymphocytes/100 WBC (Bld) 37.1 % Normal 20.0-40.0 [facility] Comment on above: Performed By: #### C RP, GFR, ANEU, ESR, CMP, CBC, MORPH, ADIFF #### [address] [address] Monocyte, Absolute 0.6 10 3/mcL Normal 0.1-1.4 [facility] Comment on above: Performed By: #### C RP, GFR, ANEU, ESR, CMP, CBC, MORPH, ADIFF #### [address] [address] Monocytes/100 WBC (Bld) 16.3 % High 2.0-13.0 [facility] Comment on above: Performed By: #### C RP, GFR, ANEU, ESR, CMP, CBC, MORPH, ADIFF #### [address] [address] Neutrophils/100 WBC (Bld) 41.6 % Low 50.0-75.0 [facility] Comment on above: Performed By: #### C RP, GFR, ANEU, ESR, CMP, CBC, MORPH, ADIFF #### [address] [address] .GFRon 06-29-2024 GFR >[address] [facility] Comment on above: Result Comment: GFR Population mean for , Non- Americans Ages 20-29 = 116 mL/min/1.73 sq.m. Ages 30-39 = 107 mL/min/1.73 sq.m. Ages 40-49 = 99 mL/min/1.73 sq.m. Ages 50-59 = 93 mL/min/1.73 sq.m. Ages 60-69 = 85 mL/min/1.73 sq.m. Ages 70+ = 75 mL/min/1.73 sq.m. Chronic Kidney Disease: Less than 60 mL/min/1.73 square meters End Stage Renal Disease: Less than 15 mL/min/1.73 square meters Performed By: #### C RP, GFR, ANEU, ESR, CMP, CBC, MORPH, ADIFF #### [place] [address] GFR Non- 55 ml/min/1.73sqm [facility] Comment on above: Result Comment: GFR Population mean for , Non- Americans Ages 20-29 = 116 mL/min/1.73 sq.m. Ages 30-39 = 107 mL/min/1.73 sq.m. Ages 40-49 = 99 mL/min/1.73 sq.m. Ages 50-59 = 93 mL/min/1.73 sq.m. Ages 60-69 = 85 mL/min/1.73 sq.m. Ages 70+ = 75 mL/min/1.73 sq.m. Chronic Kidney Disease: Less than 60 mL/min/1.73 square meters End Stage Renal Disease: Less than 15 mL/min/1.73 square meters Performed By: #### C RP, GFR, ANEU, ESR, CMP, CBC, MORPH, ADIFF #### [place] [address] .Morphon 06-29-2024 Acanthocytes 1+ [facility] Comment on above: Performed By: #### C RP, GFR, ANEU, ESR, CMP, CBC, MORPH, ADIFF #### [place] [address] Anisocytosis Ql (Bld) 1+ [facility] Comment on above: Performed By: #### C RP, GFR, ANEU, ESR, CMP, CBC, MORPH, ADIFF #### [place] [address] Hypochrom 1+ [facility] Comment on above: Performed By: #### C RP, GFR, ANEU, ESR, CMP, CBC, MORPH, ADIFF #### [place] [address] Ovalocytes 1+ [facility] Comment on above: Performed By: #### C RP, GFR, ANEU, ESR, CMP, CBC, MORPH, ADIFF #### [place] [address] Platelet Estimate Slt Decreased Normal [facility] Comment on above: Performed By: #### C RP, GFR, ANEU, ESR, CMP, CBC, MORPH, ADIFF #### [place] [address] Poik 1+ Normal [facility] Comment on above: Performed By: #### C RP, GFR, ANEU, ESR, CMP, CBC, MORPH, ADIFF #### [place] [address] .NEUABSon 06-29-2024 Neutrophil, Absolute 1.5 10 3/mcL Low 2.3-8.1 [facility] Comment on above: Performed By: #### C RP, GFR, ANEU, ESR, CMP, CBC, MORPH, ADIFF #### [place] [address] CBCon 06-29-2024 Erythrocyte distribution width (RBC) [Ratio] 17.4 % High 11.5-15.5 [facility] Comment on above: Performed By: #### C RP, GFR, ANEU, ESR, CMP, CBC, MORPH, ADIFF #### [place] [address] Hematocrit (Bld) [Volume fraction] 27.5 % Low 40.0-52.0 [facility] Comment on above: Performed By: #### C RP, GFR, ANEU, ESR, CMP, CBC, MORPH, ADIFF #### [place] [address] Hgb 8.7 G/dL Low 13.0-17.5 [facility] Comment on above: Performed By: #### C RP, GFR, ANEU, ESR, CMP, CBC, MORPH, ADIFF #### [place] [address] MCH (RBC) [Entitic mass] 29.5 pg Normal 27.0-33.0 [facility] Comment on above: Performed By: #### C RP, GFR, ANEU, ESR, CMP, CBC, MORPH, ADIFF #### [place] [address] MCHC 31.7 G/dL Low 32.0-36.0 [facility] Comment on above: Performed By: #### C RP, GFR, ANEU, ESR, CMP, CBC, MORPH, ADIFF #### [place] [address] MCV (RBC) [Entitic vol] 93.2 fL Normal 81.0-100.0 [facility] Comment on above: Performed By: #### C RP, GFR, ANEU, ESR, CMP, CBC, MORPH, ADIFF #### [place] [address] Platelet 135 10 3/mcL Low 150-450 [facility] Comment on above: Performed By: #### C RP, GFR, ANEU, ESR, CMP, CBC, MORPH, ADIFF #### [place] [address] Platelet mean volume (Bld) [Entitic vol] 8.9 fL Normal 6.4-10.5 [facility] Comment on above: Performed By: #### C RP, GFR, ANEU, ESR, CMP, CBC, MORPH, ADIFF #### [place] [address] RBC 2.95 10 6/mcL Low 4.50-6.00 [facility] Comment on above: Performed By: #### C RP, GFR, ANEU, ESR, CMP, CBC, MORPH, ADIFF #### [place] [address] WBC 3.5 10 3/mcL Low 4.5-10.8 [facility] Comment on above: Performed By: #### C RP, GFR, ANEU, ESR, CMP, CBC, MORPH, ADIFF #### [place] [address] CMPon 06-29-2024 Albumin Level 2.6 G/dL Low 3.2-4.8 [facility] Comment on above: Performed By: #### C RP, GFR, ANEU, ESR, CMP, CBC, MORPH, ADIFF #### [place] [address] Albumin/Globulin [Mass ratio] 1.0 {ratio} Normal 0.9-1.6 [facility] Comment on above: Performed By: #### C RP, GFR, ANEU, ESR, CMP, CBC, MORPH, ADIFF #### [place] [id number] ALP [Catalytic activity/Vol] 125 U/L Normal 38-126 [facility] Comment on above: Performed By: #### C RP, GFR, ANEU, ESR, CMP, CBC, MORPH, ADIFF #### [place] [id number] ALT [Catalytic activity/Vol] 12 U/L Normal 12-55 [facility] Comment on above: Performed By: #### C RP, GFR, ANEU, ESR, CMP, CBC, MORPH, ADIFF #### [place] [id number] AST [Catalytic activity/Vol] 18 U/L Normal 8-34 [facility] Comment on above: Performed By: #### C RP, GFR, ANEU, ESR, CMP, CBC, MORPH, ADIFF #### [place] [id number] Bili Total 0.80 mg/dL Normal 0.20-1.20 [facility] Comment on above: Result Comment: Use of this assay is not recommended for patients undergoing treatment with eltrombopag due to the potential for falsely elevated results. Performed By: #### C RP, GFR, ANEU, ESR, CMP, CBC, MORPH, ADIFF #### [place] [id number] BUN/Creatinine Ratio 19.4 ratio Normal 10.0-22.0 [facility] Comment on above: Performed By: #### C RP, GFR, ANEU, ESR, CMP, CBC, MORPH, ADIFF #### [place] [id number] Calcium [Mass/Vol] 10.1 mg/dL Normal 8.7-10.4 [facility] Comment on above: Performed By: #### C RP, GFR, ANEU, ESR, CMP, CBC, MORPH, ADIFF #### [place] [id number] Chloride [Moles/Vol] 107 mmol/L Normal 98-110 [facility] Comment on above: Performed By: #### C RP, GFR, ANEU, ESR, CMP, CBC, MORPH, ADIFF #### [address] [address] CO2 [Moles/Vol] 31 mmol/L Normal 22-32 [facility] Comment on above: Performed By: #### C RP, GFR, ANEU, ESR, CMP, CBC, MORPH, ADIFF #### [place] [id number] Creatinine [Mass/Vol] 1.34 mg/dL Normal 0.60-1.40 [facility] Comment on above: Result Comment: Test ing performed on 8digits analyzer using enzymatic creatinine methodology. Performed By: #### C RP, GFR, ANEU, ESR, CMP, CBC, MORPH, ADIFF #### [place] [id number] Electrolyte Balance 3.0 mEq/L Low 4.0-15.0 [facility] Comment on above: Performed By: #### C RP, GFR, ANEU, ESR, CMP, CBC, MORPH, ADIFF #### [place] [id number] Globulin 2.6 G/dL Normal 1.5-3.8 [facility] Comment on above: Performed By: #### C RP, GFR, ANEU, ESR, CMP, CBC, MORPH, ADIFF #### [address] [address] Glucose [Mass/Vol] 84 mg/dL Normal 70-110 [facility] Comment on above: Performed By: #### C RP, GFR, ANEU, ESR, CMP, CBC, MORPH, ADIFF #### [place] [id number] Potassium [Moles/Vol] 4.6 mmol/L Normal 3.5-5.0 [facility] Comment on above: Performed By: #### C RP, GFR, ANEU, ESR, CMP, CBC, MORPH, ADIFF #### [place] [address] Sodium [Moles/Vol] 141 mmol/L Normal 136-145 [facility] Comment on above: Performed By: #### C RP, GFR, ANEU, ESR, CMP, CBC, MORPH, ADIFF #### [place] [address] Total Protein 5.2 G/dL Low 5.7-8.2 [facility] Comment on above: Result Comment: No te - New Reference Range in effect 20 Performed By: #### C RP, GFR, ANEU, ESR, CMP, CBC, MORPH, ADIFF #### [place] [address] Urea nitrogen [Mass/Vol] 26.0 mg/dL High 8.0-22.0 [facility] Comment on above: Performed By: #### C RP, GFR, ANEU, ESR, CMP, CBC, MORPH, ADIFF #### [place] [address] CRPon 06-29-2024 C-Reactive Protein 0.8 mg/dL Normal 0.0-1.0 [facility] Comment on above: Result Comment: No te - New Reference Range in effect 20 Performed By: #### C RP, GFR, ANEU, ESR, CMP, CBC, MORPH, ADIFF #### [place] [address] ESRon 06-29-2024 Erythrocyte Sed Rate 6 mm/hr Normal 0-20 [facility] Comment on above: Performed By: #### C RP, GFR, ANEU, ESR, CMP, CBC, MORPH, ADIFF #### [place] [address] LABORATORYOrdered By: SYSTEM SYSTEM on 06-29-2024 Acanthocytes LM Ql (Bld) 1+ *NA* (06/29/24 5:55 AM) Invalid Interpretation Code AH Workflow SS Albumin BCP dye [Mass/Vol] 2.6 G/dL Low 3.2 - 4.8 G/dL AH ADM SS Albumin/Globulin [Mass ratio] 1.0 {ratio} Normal 0.9 - 1.6 ratio AH ADM SS ALP [Catalytic activity/Vol] 125 U/L Normal 38 - 126 U/L AH ADM SS ALT No additional P-5'-P [Catalytic activity/Vol] 12 U/L Normal 12 - 55 U/L AH ADM SS Anisocytosis Ql (Bld) 1+ *NA* (06/29/24 5:55 AM) Invalid Interpretation Code AH Workflow SS AST [Catalytic activity/Vol] 18 U/L Normal 8 - 34 U/L ADM SS Basophils (Bld) [#/Vol] 0.0 103/mcL Normal 0.0 - 0.3 10^3/mcL AH Workflow SS Basophils/100 WBC (Bld) 1.3 % Normal 0.0 - 2.5 % Workflow SS Bilirubin [Mass/Vol] 0.80 mg/dL Normal 0.20 - 1.20 mg/dL ADM SS Comment on above: Interpretive Data: U se of this assay is not recommended for patients undergoing treatment with eltrombopag due to the potential for falsely elevated results. Calcium [Mass/Vol] 10.1 mg/dL Normal 8.7 - 10. 4 mg/dL AH ADM SS Chloride [Moles/Vol] 107 mmol/L Normal 98 - 110 mEq/L ADM SS CO2 [Moles/Vol] 31 mmol/L Normal 22 - 32 mEq/L AH ADM SS Creatinine [Mass/Vol] 1.34 mg/dL Normal 0.60 - 1.40 mg/dL AH ADM SS Comment on above: Interpretive Data: T esting performed on 8digits analyzer using enzymatic creatinine methodology. CRP [Mass/Vol] 0.8 mg/dL Normal 0.0 - 1.0 mg/dL AH ADM SS Comment on above: Interpretive Data: * *Note - New Reference Range in effect 20 Electrolyte Balance 3.0 mEq/L Low 4.0 - 15 .0 mEq/L AH ADM SS Eosinophils (Bld) [#/Vol] 0.1 103/mcL Normal 0.0 - 0.7 10^3/mcL AH Workflow SS Eosinophils/100 WBC (Bld) 3.7 % Normal 0.0 - 6.0 % Workflow SS Erythrocyte distribution width (RBC) [Ratio] 17.4 % High 11.5 - 15.5 % Workflow SS GFR/1.73 sq M.predicted among blacks MDRD (S/P/Bld) [Vol rate/Area] ml/min/1.73sqm Invalid Interpretation Code [employer] [facility] S Comment on above: Interpretive Data: GFR Population mean for , Non- Americans Ages 20-29 = 116 mL/min/1.73 sq.m. Ages 30-39 = 107 mL/min/1.73 sq.m. Ages 40-49 = 99 mL/min/1.73 sq.m. Ages 50-59 = 93 mL/min/1.73 sq.m. Ages 60-69 = 85 mL/min/1.73 sq.m. Ages 70+ = 75 mL/min/1.73 sq.m. Chronic Kidney Disease: Less than 60 mL/min/1.73 square meters End Stage Renal Disease: Less than 15 mL/min/1.73 square meters GFR/1.73 sq M.predicted among non-blacks MDRD (S/P/Bld) [Vol rate/Area] 55 ml/min/1.73sqm Invalid Interpretation Code [employer] [facility] S Comment on above: Interpretive Data: GFR Population mean for , Non- Americans Ages 20-29 = 116 mL/min/1.73 sq.m. Ages 30-39 = 107 mL/min/1.73 sq.m. Ages 40-49 = 99 mL/min/1.73 sq.m. Ages 50-59 = 93 mL/min/1.73 sq.m. Ages 60-69 = 85 mL/min/1.73 sq.m. Ages 70+ = 75 mL/min/1.73 sq.m. Chronic Kidney Disease: Less than 60 mL/min/1.73 square meters End Stage Renal Disease: Less than 15 mL/min/1.73 square meters Globulin 2.6 G/dL Normal 1.5 - 3.8 G/dL ADM SS Glucose [Mass/Vol] 84 mg/dL Normal 70 - 110 mg/dL ADM SS Hematocrit (Bld) [Volume fraction] 27.5 % Low 40.0 - 52.0 % Workflow SS Hemoglobin (Bld) [Mass/Vol] 8.7 G/dL Low 13.0 - 17.5 G/dL AH Workflow SS Hypochromia Ql (Bld) 1+ *NA* (06/29/24 5:55 AM) Invalid Interpretation Code AH Workflow SS Lymphocytes (Bld) [#/Vol] 1.3 103/mcL Normal 0.9 - 4.3 10^3/mcL AH Workflow SS Lymphocytes/100 WBC (Bld) 37.1 % Normal 20.0 - 40.0 % AH Workflow SS MCH (RBC) [Entitic mass] 29.5 pg Normal 27.0 - 33.0 pg AH Workflow SS MCHC 31.7 G/dL Low 32.0 - 36.0 G/dL AH Workflow SS MCV (RBC) [Entitic vol] 93.2 fL Normal 81.0 - 100.0 fL AH Workflow SS Monocytes (Bld) [#/Vol] 0.6 103/mcL Normal 0.1 - 1.4 10^3/mcL AH Workflow SS Monocytes/100 WBC (Bld) 16.3 % High 2.0 - 13.0 % AH Workflow SS Neutrophils (Bld) [#/Vol] 1.5 103/mcL Low 2.3 - 8.1 10^3/mcL AH Workflow SS Neutrophils/100 WBC (Bld) 41.6 % Low 50.0 - 75.0 % AH Workflow SS Ovalocytes LM Ql (Bld) 1+ *NA* (06/29/24 5:55 AM) Invalid Interpretation Code AH Workflow SS Platelet mean volume (Bld) [Entitic vol] 8.9 fL Normal 6.4 - 10.5 fL AH Workflow SS Platelets (Bld) [#/Vol] 135 103/mcL Low 150 - 450 10^3/mcL AH Workflow SS Platelets LM Ql (Bld) Slt Decreased *NA* (06/29/24 5:55 AM) Invalid Interpretation Code AH Workflow SS Poikilocytosis LM Ql (Bld) 1+ *NA* (06/29/24 5:55 AM) Invalid Interpretation Code AH Workflow SS Potassium [Moles/Vol] 4.6 mmol/L Normal 3.5 - 5.0 mEq/L AH ADM SS Protein [Mass/Vol] 5.2 G/dL Low 5.7 - 8.2 G/dL AH ADM SS Comment on above: Interpretive Data: * *Note - New Reference Range in effect 20 RBC (Bld) [#/Vol] 2.95 106/mcL Low 4.50 - 6.0 0 10^6/mcL AH Workflow SS Sodium [Moles/Vol] 141 mmol/L Normal 136 - 145 mEq/L AH ADM SS Urea nitrogen [Mass/Vol] 26.0 mg/dL High 8.0 - 22.0 mg/dL AH ADM SS Urea nitrogen/Creatinine [Mass ratio] 19.4 ratio Normal 10.0 - 22.0 ratio AH ADM SS WBC (Bld) [#/Vol] 3.5 103/mcL Low 4.5 - 10.8 10^3/mcL AH Workflow SS LABORATORYOrdered By: Rony Chinchilla on 06-29-2024 ESR 15 minute reading (Bld) [Velocity] 6 mm/hr Normal 0 - 20 mm/hr AH Auto Heme SS .GFRon 06-27-2024 GFR Non- >60 [facility] Comment on above: Result Comment: GFR Population mean for , Non- Americans Ages 20-29 = 116 mL/min/1.73 sq.m. Ages 30-39 = 107 mL/min/1.73 sq.m. Ages 40-49 = 99 mL/min/1.73 sq.m. Ages 50-59 = 93 mL/min/1.73 sq.m. Ages 60-69 = 85 mL/min/1.73 sq.m. Ages 70+ = 75 mL/min/1.73 sq.m. Chronic Kidney Disease: Less than 60 mL/min/1.73 square meters End Stage Renal Disease: Less than 15 mL/min/1.73 square meters Performed By: #### C RP, GFR, ANEU, ESR, CMP, CBC, MORPH, ADIFF #### [place] [address] GFR >60 [facility] Comment on above: Result Comment: GFR Population mean for , Non- Americans Ages 20-29 = 116 mL/min/1.73 sq.m. Ages 30-39 = 107 mL/min/1.73 sq.m. Ages 40-49 = 99 mL/min/1.73 sq.m. Ages 50-59 = 93 mL/min/1.73 sq.m. Ages 60-69 = 85 mL/min/1.73 sq.m. Ages 70+ = 75 mL/min/1.73 sq.m. Chronic Kidney Disease: Less than 60 mL/min/1.73 square meters End Stage Renal Disease: Less than 15 mL/min/1.73 square meters Performed By: #### C RP, GFR, ANEU, ESR, CMP, CBC, MORPH, ADIFF #### [place] [address] .Manual Diffon 06-27-2024 Bands 2.0 % Normal 0.0-5.0 [facility] Comment on above: Performed By: #### C RP, GFR, ANEU, ESR, CMP, CBC, MORPH, ADIFF #### [place] [address] Basophil %, Manual 1.0 % Normal 0.0-2.5 [facility] Comment on above: Performed By: #### C RP, GFR, ANEU, ESR, CMP, CBC, MORPH, ADIFF #### [place] [address] Basophil, Abs Manual 0.0 10 3/mcL Normal 0.0-0.3 [facility] Comment on above: Performed By: #### C RP, GFR, ANEU, ESR, CMP, CBC, MORPH, ADIFF #### [place] [address] Eosinophil %, Manual 4.0 % Normal 0.0-6.0 [facility] Comment on above: Performed By: #### C RP, GFR, ANEU, ESR, CMP, CBC, MORPH, ADIFF #### [place] [address] Eosinophil, Abs Manual 0.1 10 3/mcL Normal 0.0-0.7 [facility] Comment on above: Performed By: #### C RP, GFR, ANEU, ESR, CMP, CBC, MORPH, ADIFF #### [place] [address] Lymphocyte %, Manual 21.0 % Normal 20.0-40.0 [facility] Comment on above: Performed By: #### C RP, GFR, ANEU, ESR, CMP, CBC, MORPH, ADIFF #### [address] [address] Lymphocyte, Abs Manual 0.8 10 3/mcL Low 0.9-4.3 [facility] Comment on above: Performed By: #### C RP, GFR, ANEU, ESR, CMP, CBC, MORPH, ADIFF #### [place] [id number] Monocyte %, Manual 10.0 % Normal 2.0-13.0 [facility] Comment on above: Performed By: #### C RP, GFR, ANEU, ESR, CMP, CBC, MORPH, ADIFF #### [place] [id number] Monocyte, Abs Manual 0.4 10 3/mcL Normal 0.1-1.4 [facility] Comment on above: Performed By: #### C RP, GFR, ANEU, ESR, CMP, CBC, MORPH, ADIFF #### [place] [address] Neutrophil %, Manual 62.0 % Normal 50.0-75.0 [facility] Comment on above: Performed By: #### C RP, GFR, ANEU, ESR, CMP, CBC, MORPH, ADIFF #### [place] [id number] Neutrophil, Abs Manual 2.3 10 3/mcL Normal 2.3-8.1 [facility] Comment on above: Performed By: #### C RP, GFR, ANEU, ESR, CMP, CBC, MORPH, ADIFF #### [place] [address] Nucleated RBC 0.0 /[address] [facility] Comment on above: Performed By: #### C RP, GFR, ANEU, ESR, CMP, CBC, MORPH, ADIFF #### [place] [address] .Morphon 06-27-2024 Large Platelets Few Normal [facility] Comment on above: Performed By: #### C RP, GFR, ANEU, ESR, CMP, CBC, MORPH, ADIFF #### [address] [address] Platelet Estimate Slt Decreased Normal [facility] Comment on above: Performed By: #### C RP, GFR, ANEU, ESR, CMP, CBC, MORPH, ADIFF #### [address] [address] Acanthocytes 1+ Normal [facility] Comment on above: Performed By: #### C RP, GFR, ANEU, ESR, CMP, CBC, MORPH, ADIFF #### [address] [address] Anisocytosis Ql (Bld) 1+ Normal [facility] Comment on above: Performed By: #### C RP, GFR, ANEU, ESR, CMP, CBC, MORPH, ADIFF #### [address] [address] Ovalocytes 1+ Normal [facility] Comment on above: Performed By: #### C RP, GFR, ANEU, ESR, CMP, CBC, MORPH, ADIFF #### [address] [address] Poik 1+ [facility] Comment on above: Performed By: #### C RP, GFR, ANEU, ESR, CMP, CBC, MORPH, ADIFF #### [address] [address] Vacuolated Neutrophils 1+ Normal [facility] Comment on above: Performed By: #### C RP, GFR, ANEU, ESR, CMP, CBC, MORPH, ADIFF #### [place] [id number] BMPon 06-27-2024 BUN/Creatinine Ratio 23.9 ratio High 10.0-22.0 [facility] Comment on above: Performed By: #### D IFF, MORPH, BMP, GFR, CBC #### [place] [address] Calcium [Mass/Vol] 10.3 mg/dL Normal 8.7-10.4 [facility] Comment on above: Performed By: #### D IFF, MORPH, BMP, GFR, CBC #### [place] [address] Chloride [Moles/Vol] 107 mmol/L Normal 98-110 [facility] Comment on above: Performed By: #### D IFF, MORPH, BMP, GFR, CBC #### [address] [address] CO2 [Moles/Vol] 34 mmol/L High 22-32 [facility] Comment on above: Performed By: #### D IFF, MORPH, BMP, GFR, CBC #### [address] [address] Creatinine [Mass/Vol] 1.13 mg/dL Normal 0.60-1.40 [facility] Comment on above: Result Comment: Test ing performed on 8digits analyzer using enzymatic creatinine methodology. Performed By: #### D IFF, MORPH, BMP, GFR, CBC #### [address] [address] Electrolyte Balance 0.0 mEq/L Low 4.0-15.0 [facility] Comment on above: Performed By: #### D IFF, MORPH, BMP, GFR, CBC #### [address] [address] Glucose [Mass/Vol] 80 mg/dL Normal 70-110 [facility] Comment on above: Performed By: #### D IFF, MORPH, BMP, GFR, CBC #### [address] [address] Potassium [Moles/Vol] 4.2 mmol/L Normal 3.5-5.0 [facility] Comment on above: Performed By: #### D IFF, MORPH, BMP, GFR, CBC #### [address] [address] Sodium [Moles/Vol] 141 mmol/L Normal 136-145 [facility] Comment on above: Performed By: #### D IFF, MORPH, BMP, GFR, CBC #### [address] [address] Urea nitrogen [Mass/Vol] 27.0 mg/dL High 8.0-22.0 [facility] Comment on above: Performed By: #### D IFF, MORPH, BMP, GFR, CBC #### [address] [address] CBCon 06-27-2024 Erythrocyte distribution width (RBC) [Ratio] 16.6 % High 11.5-15.5 [facility] Comment on above: Performed By: #### D IFF, MORPH, BMP, GFR, CBC #### [place] [address] Hematocrit (Bld) [Volume fraction] 28.6 % Low 40.0-52.0 [facility] Comment on above: Performed By: #### D IFF, MORPH, BMP, GFR, CBC #### [place] [address] Hgb 9.1 G/dL Low 13.0-17.5 [facility] Comment on above: Performed By: #### D IFF, MORPH, BMP, GFR, CBC #### [place] [address] MCH (RBC) [Entitic mass] 28.9 pg Normal 27.0-33.0 [facility] Comment on above: Performed By: #### D IFF, MORPH, BMP, GFR, CBC #### [place] [address] MCHC 31.9 G/dL Low 32.0-36.0 [facility] Comment on above: Performed By: #### D IFF, MORPH, BMP, GFR, CBC #### [place] [address] MCV (RBC) [Entitic vol] 90.6 fL Normal 81.0-100.0 [facility] Comment on above: Performed By: #### D IFF, MORPH, BMP, GFR, CBC #### [place] [address] Platelet 129 10 3/mcL Low 150-450 [facility] Comment on above: Performed By: #### D IFF, MORPH, BMP, GFR, CBC #### [place] [address] Platelet mean volume (Bld) [Entitic vol] 9.2 fL Normal 6.4-10.5 [facility] Comment on above: Performed By: #### D IFF, MORPH, BMP, GFR, CBC #### [address] [address] RBC 3.16 10 6/mcL Low 4.50-6.00 [facility] Comment on above: Performed By: #### D IFF, MORPH, BMP, GFR, CBC #### [address] [address] WBC 3.7 10 3/mcL Low 4.5-10.8 [facility] Comment on above: Performed By: #### D IFF, MORPH, BMP, GFR, CBC #### [address] [address] LABORATORYOrdered By: SYSTEM SYSTEM on 06-27-2024 Acanthocytes LM Ql (Bld) 1+ *NA* (06/27/24 7:47 AM) Invalid Interpretation Code AH Workflow SS Anisocytosis Ql (Bld) 1+ *NA* (06/27/24 7:47 AM) Invalid Interpretation Code AH Workflow SS Band form neutrophils/100 WBC (Bld) 2.0 % Normal 0.0 - 5.0 % AH Workflow SS Basophils (Bld) [#/Vol] 0.0 103/mcL Normal 0.0 - 0.3 10^3/mcL AH Workflow SS Basophils/100 WBC (Bld) 1.0 % Normal 0.0 - 2.5 % AH Workflow SS Calcium [Mass/Vol] 10.3 mg/dL Normal 8.7 - 10. 4 mg/dL ADM SS Chloride [Moles/Vol] 107 mmol/L Normal 98 - 110 mEq/L ADM SS CO2 [Moles/Vol] 34 mmol/L High 22 - 32 mEq/L ADM SS Creatinine [Mass/Vol] 1.13 mg/dL Normal 0.60 - 1.40 mg/dL ADM SS Comment on above: Interpretive Data: T esting performed on 8digits analyzer using enzymatic creatinine methodology. Electrolyte Balance 0.0 mEq/L Low 4.0 - 15 .0 mEq/L ADM SS Eosinophils (Bld) [#/Vol] 0.1 103/mcL Normal 0.0 - 0.7 10^3/mcL AH Workflow SS Eosinophils/100 WBC (Bld) 4.0 % Normal 0.0 - 6.0 % Workflow SS Erythrocyte distribution width (RBC) [Ratio] 16.6 % High 11.5 - 15.5 % Workflow SS GFR/1.73 sq M.predicted among blacks MDRD (S/P/Bld) [Vol rate/Area] ml/min/1.73sqm Invalid Interpretation Code Chemistry S Comment on above: Interpretive Data: GFR Population mean for , Non- Americans Ages 20-29 = 116 mL/min/1.73 sq.m. Ages 30-39 = 107 mL/min/1.73 sq.m. Ages 40-49 = 99 mL/min/1.73 sq.m. Ages 50-59 = 93 mL/min/1.73 sq.m. Ages 60-69 = 85 mL/min/1.73 sq.m. Ages 70+ = 75 mL/min/1.73 sq.m. Chronic Kidney Disease: Less than 60 mL/min/1.73 square meters End Stage Renal Disease: Less than 15 mL/min/1.73 square meters GFR/1.73 sq M.predicted among non-blacks MDRD (S/P/Bld) [Vol rate/Area] ml/min/1.73sqm Invalid Interpretation Code Chemistry S Comment on above: Interpretive Data: GFR Population mean for , Non- Americans Ages 20-29 = 116 mL/min/1.73 sq.m. Ages 30-39 = 107 mL/min/1.73 sq.m. Ages 40-49 = 99 mL/min/1.73 sq.m. Ages 50-59 = 93 mL/min/1.73 sq.m. Ages 60-69 = 85 mL/min/1.73 sq.m. Ages 70+ = 75 mL/min/1.73 sq.m. Chronic Kidney Disease: Less than 60 mL/min/1.73 square meters End Stage Renal Disease: Less than 15 mL/min/1.73 square meters Glucose [Mass/Vol] 80 mg/dL Normal 70 - 110 mg/dL ADM SS Hematocrit (Bld) [Volume fraction] 28.6 % Low 40.0 - 52.0 % Workflow SS Hemoglobin (Bld) [Mass/Vol] 9.1 G/dL Low 13.0 - 17.5 G/dL AH Workflow SS Large Platelets Few *NA* (06/27/24 7:47 AM) Invalid Interpretation Code AH Workflow SS Lymphocytes (Bld) [#/Vol] 0.8 103/mcL Low 0.9 - 4.3 10^3/mcL AH Workflow SS Lymphocytes/100 WBC (Bld) 21.0 % Normal 20.0 - 40.0 % AH Workflow SS MCH (RBC) [Entitic mass] 28.9 pg Normal 27.0 - 33.0 pg AH Workflow SS MCHC 31.9 G/dL Low 32.0 - 36.0 G/dL AH Workflow SS MCV (RBC) [Entitic vol] 90.6 fL Normal 81.0 - 100.0 fL AH Workflow SS Monocytes (Bld) [#/Vol] 0.4 103/mcL Normal 0.1 - 1.4 10^3/mcL AH Workflow SS Monocytes/100 WBC (Bld) 10.0 % Normal 2.0 - 13.0 % AH Workflow SS Neutrophils (Bld) [#/Vol] 2.3 103/mcL Normal 2.3 - 8.1 10^3/mcL AH Workflow SS Neutrophils/100 WBC (Bld) 62.0 % Normal 50.0 - 75.0 % AH Workflow SS Nucleated RBC 0.0 /100 WBC Invalid Interpretation Code AH Workflow SS Ovalocytes LM Ql (Bld) 1+ *NA* (06/27/24 7:47 AM) Invalid Interpretation Code AH Workflow SS Platelet mean volume (Bld) [Entitic vol] 9.2 fL Normal 6.4 - 10.5 fL AH Workflow SS Platelets (Bld) [#/Vol] 129 103/mcL Low 150 - 450 10^3/mcL AH Workflow SS Platelets LM Ql (Bld) Slt Decreased *NA* (06/27/24 7:47 AM) Invalid Interpretation Code AH Workflow SS Poikilocytosis LM Ql (Bld) 1+ *NA* (06/27/24 7:47 AM) Invalid Interpretation Code AH Workflow SS Potassium [Moles/Vol] 4.2 mmol/L Normal 3.5 - 5.0 mEq/L AH ADM SS RBC (Bld) [#/Vol] 3.16 106/mcL Low 4.50 - 6.0 0 10^6/mcL AH Workflow SS Sodium [Moles/Vol] 141 mmol/L Normal 136 - 145 mEq/L AH ADM SS Urea nitrogen [Mass/Vol] 27.0 mg/dL High 8.0 - 22.0 mg/dL AH ADM SS Urea nitrogen/Creatinine [Mass ratio] 23.9 ratio High 10.0 - 22.0 ratio AH ADM SS Vacuolated Neutrophils 1+ *NA* (06/27/24 7:47 AM) Invalid Interpretation Code AH Workflow SS WBC (Bld) [#/Vol] 3.7 103/mcL Low 4.5 - 10.8 10^3/mcL AH Workflow SS CBC panel Auto (Bld)on 06-26 Erythrocyte distribution width (RBC) [Ratio] 15.4 % High 11.5-14.5 [facility] Comment on above: Performed By: #### 5 8410-2 ####FLORINDA Monroe ([id number])[facility] ([facility])[address] [place] [address] Hematocrit (Bld) [Volume fraction] 26.2 % Low 41.0-52.0 [facility] Comment on above: Performed By: #### 5 8410-2 ####FLORINDA Monroe ([id number])[facility] ([facility])[address] [place] [address] Hemoglobin (Bld) [Mass/Vol] 8.1 g/dL Low 13.5-17.5 [facility] Comment on above: Performed By: #### 5 8410-2 ####FLORINDA Monroe ([id number])[facility] ([facility])[id number] [place] [address] MCH (RBC) [Entitic mass] 29.1 pg Normal 26.0-34.0 [facility] Comment on above: Performed By: #### 5 8410-2 ####FLORINDA Monroe ([id number])[facility] ([facility])[address] [place] [address] MCHC (RBC) [Mass/Vol] 30.9 g/dL Low 32.0-36.0 [facility] Comment on above: Performed By: #### 5 8410-2 ####FLORINDA Monroe ([id number])[facility] ([facility])[address] [place] [address] MCV (RBC) [Entitic vol] 94 fL Normal 80-100 [facility] Comment on above: Performed By: #### 5 8410-2 ####FLORINDA Monroe ([id number])[facility] ([facility])[address] [place] [address] Nucleated RBC/100 WBC (Bld) [Ratio] 0.0 /100 WBCs Normal 0.0-0.0 [facility] Comment on above: Performed By: #### 5 8410-2 ####FLORINDA Monroe ([id number])[facility] ([facility])[address] [place] [address] Platelets (Bld) [#/Vol] 116 x10*3/uL Low 150-450 [facility] Comment on above: Performed By: #### 5 8410-2 ####FLORINDA Monroe ([id number])[facility] ([facility])[id number] [place] [address] RBC (Bld) [#/Vol] 2.78 x10*6/uL Low 4.50-5.90 [facility] Comment on above: Performed By: #### 5 8410-2 ####FLORINDA Monroe ([id number])[facility] ([facility])[address] [place] [address] WBC (Bld) [#/Vol] 3.4 x10*3/uL Low 4.4-11.3 [facility] Comment on above: Performed By: #### 5 8410-2 ####FLORINDA Monroe ([id number])[facility] ([facility])[address] [place] [address] Magnesiumon 06-26-2024 Magnesium [Mass/Vol] 2.03 mg/dL Normal 1.60-2.40 [facility] Comment on above: Performed By: #### 1 9123-9 ####FLORINDA Monroe ([id number])[facility] ([facility])[address] [place] [address] Renal function 2000 panelon 06-26-2024 Albumin BCP dye [Mass/Vol] 2.8 g/dL Low 3.4-5.0 [facility] Comment on above: Performed By: #### 2 4362-6 ####FLORINDA Monroe ([id number])[facility] ([facility])[address] [place] [address] Anion gap [Moles/Vol] 9 mmol/L Low 10-20 [facility] Comment on above: Performed By: #### 2 4362-6 ####FLORINDA Monroe ([id number])[facility] ([facility])[address] [place] [address] Calcium [Mass/Vol] 9.4 mg/dL Normal 8.6-10.6 [facility] Comment on above: Performed By: #### 2 4362-6 ####FLORINDA Monroe ([id number])[facility] ([facility])[address] [place] [address] Chloride [Moles/Vol] 101 mmol/L Normal 98-107 [facility] Comment on above: Performed By: #### 2 4362-6 ####FLORINDA TARANGO L ([id number])[facility] ([facility])[address] [place] [address] CO2 [Moles/Vol] 36 mmol/L High 21-32 [facility] Comment on above: Performed By: #### 2 4362-6 ####FLORINDA TARANGO L ([id number])[facility] ([facility])[address] [place] [address] Creatinine [Mass/Vol] 1.14 mg/dL Normal 0.50-1.30 [facility] Comment on above: Performed By: #### 2 4362-6 ####FLORINDA TARANGO L ([id number])[facility] ([facility])[address] [place] [address] Glomerular filtration rate/1.73 sq M.predicted 76 mL/min/1.73m*2 Normal >60 [facility] Comment on above: Result Comment: Calc ulations of estimated GFR are performed using the 2020 CKD-EPI Study Refit equation without the race variable for the IDMS-Traceable creatinine methods.https://jasn.asnjournals.org/content//ASN. 6323807364 Performed By: #### 2 4362-6 ####FLORINDA Monroe ([id number])[facility] ([facility])[address] [place] [address] Glucose [Mass/Vol] 77 mg/dL Normal 74-99 [facility] Comment on above: Performed By: #### 2 4362-6 ####FLORINDA Monroe ([id number])[facility] ([facility])[address] [place] [address] Phosphate [Mass/Vol] 1.5 mg/dL Low 2.5-4.9 [facility] Comment on above: Result Comment: The performance characteristics of phosphorus testing in heparinized plasma have been validated by the individual laboratory site where testing is performed. Testing on heparinized plasma is not approved by the FDA; however, such approval is not necessary. Performed By: #### 2 4362-6 ####FLORINDA Monroe ([id number])[facility] ([facility])[address] [place] [address] Potassium [Moles/Vol] 3.8 mmol/L Normal 3.5-5.3 [facility] Comment on above: Performed By: #### 2 4362-6 ####FLORINDA Monroe ([id number])[facility] ([facility])[address] [place] [address] Sodium [Moles/Vol] 142 mmol/L Normal 136-145 [facility] Comment on above: Performed By: #### 2 4362-6 ####FLORINDA Monroe ([id number])[facility] ([facility])[address] [place] [address] Urea nitrogen [Mass/Vol] 33 mg/dL High 6-23 [facility] Comment on above: Performed By: #### 2 4362-6 ####FLORINDA Monroe ([id number])[facility] ([facility])[id number] [place] [address] Tacrolimuson 06-26-2024 Tacrolimus (Bld) [Mass/Vol] 5.0 ng/mL Normal <=15.0 [facility] Comment on above: Order Comment: NOTE: Result was obtained using achemiluminescent microparticle immunoassay(CMIA) on the Systems Software Developer i system.Optimal therapeutic ranges for immunosuppressantdrugs depend upon an individualpatient's current clinical state, type oforgan transplant, time post-transplant,co-administration of other immunosuppressants,and other clinical factors. The results ofthis test should be correlated with additionalclinical and laboratory data before changesin treatment regimens are made. Performed By: #### 1 1253-2 ####FLORINDA Monroe ([id number])[facility] ([facility])[id number] [place] [address] CBC panel Auto (Bld)on 06-25 Erythrocyte distribution width (RBC) [Ratio] 15.4 % High 11.5-14.5 [facility] Comment on above: Performed By: #### 5 8410-2 ####FLORINDA Monroe ([id number])[facility] ([facility])[address] [place] [address] Hematocrit (Bld) [Volume fraction] 26.6 % Low 41.0-52.0 [facility] Comment on above: Performed By: #### 5 8410-2 ####FLORINDA Monroe ([id number])[facility] ([facility])[address] [place] [address] Hemoglobin (Bld) [Mass/Vol] 8.3 g/dL Low 13.5-17.5 [facility] Comment on above: Performed By: #### 5 8410-2 ####FLORINDA Monroe ([id number])[facility] ([facility])[address] [place] [address] MCH (RBC) [Entitic mass] 29.3 pg Normal 26.0-34.0 [facility] Comment on above: Performed By: #### 5 8410-2 ####FLORINDA Monroe ([id number])[facility] ([facility])[address] [place] [address] MCHC (RBC) [Mass/Vol] 31.2 g/dL Low 32.0-36.0 [facility] Comment on above: Performed By: #### 5 8410-2 ####FLORINDA Monroe ([id number])[facility] ([facility])[address] [place] [address] MCV (RBC) [Entitic vol] 94 fL Normal 80-100 [facility] Comment on above: Performed By: #### 5 8410-2 ####FLORINDA Monroe ([id number])[facility] ([facility])[address] [place] [address] Nucleated RBC/100 WBC (Bld) [Ratio] 0.0 /100 WBCs Normal 0.0-0.0 [facility] Comment on above: Performed By: #### 5 8410-2 ####FLORINDA Monroe ([id number])[facility] ([facility])[address] [place] [address] Platelets (Bld) [#/Vol] 116 x10*3/uL Low 150-450 [facility] Comment on above: Performed By: #### 5 8410-2 ####FLORINDA Monroe ([id number])[facility] ([facility])[address] [place] [address] RBC (Bld) [#/Vol] 2.83 x10*6/uL Low 4.50-5.90 [facility] Comment on above: Performed By: #### 5 8410-2 ####FLORINDA Monroe ([id number])[facility] ([facility])[address] [place] [address] WBC (Bld) [#/Vol] 3.3 x10*3/uL Low 4.4-11.3 [facility] Comment on above: Performed By: #### 5 8410-2 ####FLORINDA Monroe ([id number])[facility] ([facility])[id number] [place] [address] ECG 12-LEADon 06-25-2024 ECG 12-LEAD Ventricular Rate 68 Atrial Rate 68 P-R Interval 262 QRS Duration 154 Q-T Interval 446 QTC Calculation(Bazett) 474 P Afton 59 R Afton -44 T Afton -48 QRS Count 11 Q Onset 214 P Onset 83 P Offset 141 T Offset 437 QTC Fredericia 465 Diagnosis Sinus rhythm with 1st degree AV block Left axis deviation Left bundle branch block Abnormal ECG When compared with ECG of 20-JUN-2024 18:34, Previous ECG has undetermined rhythm, needs review Left bundle branch block 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) Confirmed by Pranav Guevara ([id number]) on 06/28/2024 10:41:05 PM Normal [facility] Magnesiumon 06-25-2024 Magnesium [Mass/Vol] 2.09 mg/dL Normal 1.60-2.40 [facility] Comment on above: Performed By: #### 1 9123-9 ####FLORINDA Monroe ([id number])[facility] ([facility])[id number] [place] [address] Renal function 2000 panelon 06-25-2024 Albumin BCP dye [Mass/Vol] 2.9 g/dL Low 3.4-5.0 [facility] Comment on above: Performed By: #### 2 4362-6 ####FLORINDA Monroe ([id number])[facility] ([facility])[address] [place] [address] Anion gap [Moles/Vol] 11 mmol/L Normal 10-20 [facility] Comment on above: Performed By: #### 2 4362-6 ####FLORINDA Monroe ([id number])[facility] ([facility])[address] [place] [address] Calcium [Mass/Vol] 9.6 mg/dL Normal 8.6-10.6 [facility] Comment on above: Performed By: #### 2 4362-6 ####FLORINDA TARANGO L ([id number])[facility] ([facility])[address] [place] [address] Chloride [Moles/Vol] 98 mmol/L Normal 98-107 [facility] Comment on above: Performed By: #### 2 4362-6 ####FLORINDA HYDEMOTZER L ([id number])[facility] ([facility])[address] [place] [address] CO2 [Moles/Vol] 36 mmol/L High 21-32 [facility] Comment on above: Performed By: #### 2 4362-6 ####FLORINDA TARANGO L ([id number])[facility] ([facility])[address] [place] [address] Creatinine [Mass/Vol] 1.31 mg/dL High 0.50-1.30 [facility] Comment on above: Performed By: #### 2 4362-6 ####FLORINDA TARANGO L ([id number])[facility] ([facility])[address] [place] [address] Glomerular filtration rate/1.73 sq M.predicted 64 mL/min/1.73m*2 Normal >60 [facility] Comment on above: Result Comment: Calc ulations of estimated GFR are performed using the 2020 CKD-EPI Study Refit equation without the race variable for the IDMS-Traceable creatinine methods.https://jasn.asnjournals.org/content/early//ASN. 5148615332 Performed By: #### 2 4362-6 ####FLORINDA TARANGO L ([id number])[facility] ([facility])[address] [place] [address] Glucose [Mass/Vol] 82 mg/dL Normal 74-99 [facility] Comment on above: Performed By: #### 2 4362-6 ####FLORINDA TARANGO L ([id number])[facility] ([facility])[address] [place] [address] Phosphate [Mass/Vol] 1.6 mg/dL Low 2.5-4.9 [facility] Comment on above: Result Comment: The performance characteristics of phosphorus testing in heparinized plasma have been validated by the individual laboratory site where testing is performed. Testing on heparinized plasma is not approved by the FDA; however, such approval is not necessary. Performed By: #### 2 4362-6 ####FLORINDA Monroe ([id number])[facility] ([facility])[address] [place] [address] Potassium [Moles/Vol] 3.5 mmol/L Normal 3.5-5.3 [facility] Comment on above: Performed By: #### 2 4362-6 ####FLORINDA Monroe ([id number])[facility] ([facility])[address] [place] [address] Sodium [Moles/Vol] 141 mmol/L Normal 136-145 [facility] Comment on above: Performed By: #### 2 4362-6 ####FLORINDA Monroe ([id number])[facility] ([facility])[address] [place] [address] Urea nitrogen [Mass/Vol] 39 mg/dL High 6-23 [facility] Comment on above: Performed By: #### 2 4362-6 ####FLORINDA Monroe ([id number])[facility] ([facility])[address] [place] [address] Tacrolimuson 06-25-2024 Tacrolimus (Bld) [Mass/Vol] 3.9 ng/mL Normal <=15.0 [facility] Comment on above: Order Comment: NOTE: Result was obtained using achemiluminescent microparticle immunoassay(CMIA) on the Systems [employer] Developer i system.Optimal therapeutic ranges for immunosuppressantdrugs depend upon an individualpatient's current clinical state, type oforgan transplant, time post-transplant,co-administration of other immunosuppressants,and other clinical factors. The results ofthis test should be correlated with additionalclinical and laboratory data before changesin treatment regimens are made. Performed By: #### 1 1253-2 ####FLORINDA Monroe ([id number])[facility] ([facility])[address] [place] [address] CBC panel Auto (Bld)on 06-24 Erythrocyte distribution width (RBC) [Ratio] 15.4 % High 11.5-14.5 [facility] Comment on above: Performed By: #### 5 8410-2 ####FLORINDA Monroe ([id number])[facility] ([facility])[address] [place] [address] Hematocrit (Bld) [Volume fraction] 25.4 % Low 41.0-52.0 [facility] Comment on above: Performed By: #### 5 8410-2 ####FLORINDA Monroe ([id number])[facility] ([facility])[id number] [place] [id number] Hemoglobin (Bld) [Mass/Vol] 7.8 g/dL Low 13.5-17.5 [facility] Comment on above: Performed By: #### 5 8410-2 ####FLORINDA Monroe ([id number])[facility] ([facility])[address] [place] [address] MCH (RBC) [Entitic mass] 28.6 pg Normal 26.0-34.0 [facility] Comment on above: Performed By: #### 5 8410-2 ####FLORINDA Monroe ([id number])[facility] ([facility])[address] [place] [address] MCHC (RBC) [Mass/Vol] 30.7 g/dL Low 32.0-36.0 [facility] Comment on above: Performed By: #### 5 8410-2 ####FLORINDA Monroe ([id number])[facility] ([facility])[address] [place] [address] MCV (RBC) [Entitic vol] 93 fL Normal 80-100 [facility] Comment on above: Performed By: #### 5 8410-2 ####FLORINDA Monroe ([id number])[facility] ([place] [facility])[address] [place] [address] Nucleated RBC/100 WBC (Bld) [Ratio] 0.0 /100 WBCs Normal 0.0-0.0 [facility] Comment on above: Performed By: #### 5 8410-2 ####FLORINDA Monroe ([id number])[facility] ([facility])[address] [place] [address] Platelets (Bld) [#/Vol] 109 x10*3/uL Low 150-450 [facility] Comment on above: Performed By: #### 5 8410-2 ####FLORINDA Monroe ([id number])[facility] ([facility])[address] [place] [address]68 RBC (Bld) [#/Vol] 2.73 x10*6/uL Low 4.50-5.90 [facility] Comment on above: Performed By: #### 5 8410-2 ####FLORINDA Monroe ([id number])[facility] ([facility])[address] [place] [address] 28979 WBC (Bld) [#/Vol] 3.5 x10*3/uL Low 4.4-11.3 [facility] Comment on above: Performed By: #### 5 8410-2 ####FLORINDA Monroe ([id number])[facility] ([facility])[address] [place] [address] ELECTROLYTE PANEL, URINEon 0 - Chloride (U) [Moles/Vol] 45 mmol/L Normal [facility] Comment on above: Performed By: #### E LCS2 ####FLORINDA Monroe ([id number])[facility] ([facility])[address] [place] [address] CHLORIDE/CREATININE (MMOL/G) IN URINE 104 mmol/g creat Normal 23-275 [facility] Comment on above: Performed By: #### E LCS2 ####FLORINDA Monroe ([id number])[facility] ([facility])[address] [place] [address] Creatinine (U) [Mass/Vol] 43.3 mg/dL Normal 20.0-370.0 [facility] Comment on above: Performed By: #### E LCS2 ####FLORINDA Monroe ([id number])[facility] ([facility])[address] [place] [address] Potassium (U) [Moles/Vol] 12 mmol/L Normal [facility] Comment on above: Performed By: #### E LCS2 ####FLORINDA Monroe ([id number])[facility] ([facility])[address] [place] [address] Potassium/Creatinin e (U) [Ratio] 28 mmol/g Creat Normal Not established [facility] Comment on above: Performed By: #### E LCS2 ####FLORINDA Monroe ([id number])[facility] ([facility])[address] [place] [address] Sodium (U) [Moles/Vol] 61 mmol/L Normal [facility] Comment on above: Performed By: #### E LCS2 ####FLORINDA Monroe ([id number])[facility] ([facility])[address] [place] [address] Sodium/Creatinine (U) [Ratio] 141 mmol/g Creat Normal Not established. [facility] Comment on above: Performed By: #### E LCS2 ####FLORINDA Monroe ([id number])[facility] ([facility])[address] [place] [address] Ferritinon 06-24-2024 Ferritin [Mass/Vol] 866 ng/mL High 20-300 [facility] Comment on above: Performed By: #### 2 276-4 ####FLORINDA Monroe ([id number])[facility] ([facility])[address] [place] [address] Iron and Iron binding capaci ty panelon 06-24-2024 Iron [Mass/Vol] 24 ug/dL Low 35-150 [facility] Comment on above: Performed By: #### 5 0190-8 ####FLORINDA Monroe ([id number])[facility] ([facility])[address] [place] [address] Iron binding capacity [Mass/Vol] 165 ug/dL Low 240-445 [facility] Comment on above: Performed By: #### 5 0190-8 ####FLORINDA Monroe ([id number])[facility] ([facility])[address] [place] [address] 13916 Iron binding capacity.unsaturate d [Mass/Vol] 141 ug/dL Normal 110-370 [facility] Comment on above: Performed By: #### 5 0190-8 ####FLORINDA Monroe ([id number])[facility] ([facility])[address] [place] [address] Iron saturation [Mass fraction] 15 % Low 25-45 [facility] Comment on above: Performed By: #### 5 0190-8 ####FLORINDA Monroe ([id number])[facility] ([facility])[address] [place] [address] Magnesiumon 06-24-2024 Magnesium [Mass/Vol] 2.31 mg/dL Normal 1.60-2.40 [facility] Comment on above: Performed By: #### 1 9123-9 ####FLORINDA Monroe ([id number])[facility] ([facility])[address] [place] [address] Renal function 2000 panelon 06-24-2024 Albumin BCP dye [Mass/Vol] 2.8 g/dL Low 3.4-5.0 [facility] Comment on above: Performed By: #### 2 4362-6 ####FLORINDA Monroe ([id number])[facility] ([facility])[address] [place] [address] Anion gap [Moles/Vol] 9 mmol/L Low 10-20 [facility] Comment on above: Performed By: #### 2 4362-6 ####FLORINDA Monroe ([id number])[facility] ([facility])[address] [place] [address] Calcium [Mass/Vol] 9.4 mg/dL Normal 8.6-10.6 [facility] Comment on above: Performed By: #### 2 4362-6 ####FLORINDA TARANGO L ([id number])[facility] ([facility])[address] [place] [address] Chloride [Moles/Vol] 95 mmol/L Low 98-107 [facility] Comment on above: Performed By: #### 2 4362-6 ####FLORINDA TARANGO L ([id number])[facility] ([facility])[address] [place] [address] CO2 [Moles/Vol] 38 mmol/L High 21-32 [facility] Comment on above: Performed By: #### 2 4362-6 ####FLORINDA TARANGO L ([id number])[facility] ([facility])[address] [place] [address] Creatinine [Mass/Vol] 1.44 mg/dL High 0.50-1.30 [facility] Comment on above: Performed By: #### 2 4362-6 ####FLORINDA TARANGO L ([id number])[facility] ([facility])[address] [place] [address] Glomerular filtration rate/1.73 sq M.predicted 57 mL/min/1.73m*2 Low >60 [facility] Comment on above: Result Comment: Calc ulations of estimated GFR are performed using the 2020 CKD-EPI Study Refit equation without the race variable for the IDMS-Traceable creatinine methods.https://jasn.asnjournals.org/content/early/ASN. 4202349055 Performed By: #### 2 4362-6 ####FLORINDA TARANGO L ([id number])[facility] ([facility])[address] [place] [address] Glucose [Mass/Vol] 96 mg/dL Normal 74-99 [facility] Comment on above: Performed By: #### 2 4362-6 ####FLORINDA Monroe ([id number])[facility] ([facility])[address] [place] [address] Phosphate [Mass/Vol] 1.7 mg/dL Low 2.5-4.9 [facility] Comment on above: Result Comment: The performance characteristics of phosphorus testing in heparinized plasma have been validated by the individual laboratory site where testing is performed. Testing on heparinized plasma is not approved by the FDA; however, such approval is not necessary. Performed By: #### 2 4362-6 ####FOLRINDA Monroe ([id number])[facility] ([facility])[address] [place] [address] Potassium [Moles/Vol] 3.6 mmol/L Normal 3.5-5.3 [facility] Comment on above: Performed By: #### 2 4362-6 ####FLORINDA Monroe ([id number])[facility] ([facility])[address] [place] [address]36 Sodium [Moles/Vol] 138 mmol/L Normal 136-145 [facility] Comment on above: Performed By: #### 2 4362-6 ####FLORINDA Monroe ([id number])[facility] ([facility])[address] [place] [address] 22458 Urea nitrogen [Mass/Vol] 44 mg/dL High 6-23 [facility] Comment on above: Performed By: #### 2 4362-6 ####FLORINDA Monroe ([id number])[facility] ([facility])[address] [place] [address] 45475 Tacrolimuson 06-24-2024 Tacrolimus (Bld) [Mass/Vol] 4.5 ng/mL Normal <=15.0 [facility] Comment on above: Order Comment: NOTE: Result was obtained using achemiluminescent microparticle immunoassay(CMIA) on the [employer] i system.Optimal therapeutic ranges for immunosuppressantdrugs depend upon an individualpatient's current clinical state, type oforgan transplant, time post-transplant,co-administration of other immunosuppressants,and other clinical factors. The results ofthis test should be correlated with additionalclinical and laboratory data before changesin treatment regimens are made. Performed By: #### 1 1253-2 ####FLORINDA Monroe ([id number])[facility] ([facility])[address] [place] [address] CBC panel Auto (Bld)on 06-23 Erythrocyte distribution width (RBC) [Ratio] 15.2 % High 11.5-14.5 [facility] Comment on above: Performed By: #### 5 8410-2 ####FLORINDA Monroe ([id number])[facility] ([facility])[address] [place] [address] Hematocrit (Bld) [Volume fraction] 26.7 % Low 41.0-52.0 [facility] Comment on above: Performed By: #### 5 8410-2 ####FLORINDA Monroe ([id number])[facility] ([facility])[address] [place] [address] Hemoglobin (Bld) [Mass/Vol] 8.1 g/dL Low 13.5-17.5 [facility] Comment on above: Performed By: #### 5 8410-2 ####FLORINDA Monroe ([id number])[facility] ([facility])[address] [place] [address] MCH (RBC) [Entitic mass] 28.8 pg Normal 26.0-34.0 [facility] Comment on above: Performed By: #### 5 8410-2 ####FLORINDA TARANGO L ([id number])[facility] ([facility])[address] [place] [address] MCHC (RBC) [Mass/Vol] 30.3 g/dL Low 32.0-36.0 [facility] Comment on above: Performed By: #### 5 8410-2 ####FLORINDA Monroe ([id number])[facility] ([facility])[address] [place] [address] MCV (RBC) [Entitic vol] 95 fL Normal 80-100 [facility] Comment on above: Performed By: #### 5 8410-2 ####FLORINDA Monroe ([id number])[facility] ([facility])[address] [place] [address] Nucleated RBC/100 WBC (Bld) [Ratio] 0.0 /100 WBCs Normal 0.0-0.0 [facility] Comment on above: Performed By: #### 5 8410-2 ####FLORINDA TARANGO L ([id number])[facility] ([facility])[address] [place] [address] Platelets (Bld) [#/Vol] 110 x10*3/uL Low 150-450 [facility] Comment on above: Performed By: #### 5 8410-2 ####FLORINDA Monroe ([id number])[facility] ([facility])[address] [place] [address] RBC (Bld) [#/Vol] 2.81 x10*6/uL Low 4.50-5.90 [facility] Comment on above: Performed By: #### 5 8410-2 ####FLORINDA Monroe ([id number])[facility] ([facility])[address] [place] [address] WBC (Bld) [#/Vol] 2.7 x10*3/uL Low 4.4-11.3 [facility] Comment on above: Performed By: #### 5 8410-2 ####FLORINDA Monroe ([id number])[facility] ([facility])[address] [place] [address]846 Heparin.unfractionatedon Heparin unfractionated Chromogenic method Qn (PPP) 0.3 IU/mL Normal See Comment Below for Therapeutic Ranges [facility] Comment on above: Order Comment: Obtai n 4 hours after any Heparin dosage change. Nursing to release order.The therapeutic reference range for UFH may be either 0.3-0.6 IU/mL or 0.3-0.7 IU/mL based on the clinical setting for anticoagulant therapy and the associated nomogram used. For Heparin dosing guidelines based on clinical scenario and Heparin Assay results, please refer to local Pharmacy and the [facility] Guidelines for Anticoagulation Therapy available on the [facility] intranet at: [email or web address] [email or web address]_[email or web address] Performed By: #### 3 274-8 ####FLORINDA Monroe ([id number])[facility] ([facility])[address] [place] [address] Heparin unfractionated Chromogenic method Qn (PPP) 0.3 IU/mL Normal See Comment Below for Therapeutic Ranges [facility] Comment on above: Order Comment: Obtai n 4 hours after any Heparin dosage change. Nursing to release order.The therapeutic reference range for UFH may be either 0.3-0.6 IU/mL or 0.3-0.7 IU/mL based on the clinical setting for anticoagulant therapy and the associated nomogram used. For Heparin dosing guidelines based on clinical scenario and Heparin Assay results, please refer to local Pharmacy and the [facility] Guidelines for Anticoagulation Therapy available on the [facility] intranet at: [email or web address] [email or web address]_[email or web address] Performed By: #### 3 274-8 ####FLORINDA Monroe ([id number])[facility] ([facility])[address] [place] [address] Heparin unfractionated Chromogenic method Qn (PPP) 0.2 IU/mL Normal See Comment Below for Therapeutic Ranges [facility] Comment on above: Order Comment: Obtai n 4 hours after any Heparin dosage change. Nursing to release order.The therapeutic reference range for UFH may be either 0.3-0.6 IU/mL or 0.3-0.7 IU/mL based on the clinical setting for anticoagulant therapy and the associated nomogram used. For Heparin dosing guidelines based on clinical scenario and Heparin Assay results, please refer to local Pharmacy and the [facility] Guidelines for Anticoagulation Therapy available on the [facility] intranet at: [email or web address] [email or web address]_[email or web address] Performed By: #### 3 274-8 ####FLORINDA Monroe ([id number])[facility] ([facility])[address] [place] [address] MR CARDIAC MORPHOLOGY AND FU NCTION W AND WO IV CONTRASTon 06-23-2024 MR CARDIAC MORPHOLOGY AND FUNCTION W AND WO IV CONTRAST Normal [facility] Magnesiumon 06-23-2024 Magnesium [Mass/Vol] 2.60 mg/dL High 1.60-2.40 [facility] Comment on above: Performed By: #### 1 9123-9 ####FLORINDA Monroe ([id number])[facility] ([facility])[address] [place] [address] 65054 Renal function 2000 panelon 06-23-2024 Albumin BCP dye [Mass/Vol] 2.8 g/dL Low 3.4-5.0 [facility] Comment on above: Performed By: #### 2 4362-6 ####FLORINDA Monroe ([id number])[facility] ([facility])[address] [place] [address] Anion gap [Moles/Vol] 7 mmol/L Low 10-20 [facility] Comment on above: Performed By: #### 2 4362-6 ####FLORINDA Monroe ([id number])[facility] ([facility])[address] [place] [address] Calcium [Mass/Vol] 9.6 mg/dL Normal 8.6-10.6 [facility] Comment on above: Performed By: #### 2 4362-6 ####FLORINDA Monroe ([id number])[facility] ([facility])[address] [place] [address] Chloride [Moles/Vol] 93 mmol/L Low 98-107 [facility] Comment on above: Performed By: #### 2 4362-6 ####FLORINDA Monroe ([id number])[facility] ([facility])[address] [place] [address] CO2 [Moles/Vol] 42 mmol/L Critically high 21-32 [facility] Comment on above: Performed By: #### 2 4362-6 ####FLORINDA Monroe ([id number])[facility] ([facility])[address] [place] [address] Creatinine [Mass/Vol] 1.40 mg/dL High 0.50-1.30 [facility] Comment on above: Performed By: #### 2 4362-6 ####FLORINDA Monroe ([id number])[facility] ([facility])[address] [place] [address] Glomerular filtration rate/1.73 sq M.predicted 59 mL/min/1.73m*2 Low >60 [facility] Comment on above: Result Comment: Calc ulations of estimated GFR are performed using the 2020 CKD-EPI Study Refit equation without the race variable for the IDMS-Traceable creatinine methods.https://jasn.asnjournals.org/content/early//ASN. 7924929539 Performed By: #### 2 4362-6 ####FLORINDA Monroe ([id number])[facility] ([facility])[address] [place] [address] Glucose [Mass/Vol] 91 mg/dL Normal 74-99 [facility] Comment on above: Performed By: #### 2 4362-6 ####FLORINDA Monroe ([id number])[facility] ([facility])[address] [place] [address] Phosphate [Mass/Vol] 2.8 mg/dL Normal 2.5-4.9 [facility] Comment on above: Result Comment: The performance characteristics of phosphorus testing in heparinized plasma have been validated by the individual laboratory site where testing is performed. Testing on heparinized plasma is not approved by the FDA; however, such approval is not necessary. Performed By: #### 2 4362-6 ####FLORINDA Monroe ([id number])[facility] ([facility])[address] [place] [address] Potassium [Moles/Vol] 3.6 mmol/L Normal 3.5-5.3 [facility] Comment on above: Performed By: #### 2 4362-6 ####FLORINDA Monroe ([id number])[facility] ([facility])[address] [place] [address] Sodium [Moles/Vol] 138 mmol/L Normal 136-145 [facility] Comment on above: Performed By: #### 2 4362-6 ####FLORINDA Monroe ([id number])[facility] ([facility])[address] [place] [address] Urea nitrogen [Mass/Vol] 46 mg/dL High 6-23 [facility] Comment on above: Performed By: #### 2 4362-6 ####FLORINDA Monroe ([id number])[facility] ([facility])[address] [place] [address] Tacrolimuson 06-23-2024 Tacrolimus (Bld) [Mass/Vol] 3.6 ng/mL Normal <=15.0 [facility] Comment on above: Order Comment: NOTE: Result was obtained using achemiluminescent microparticle immunoassay(CMIA) on the [employer] i system.Optimal therapeutic ranges for immunosuppressantdrugs depend upon an individualpatient's current clinical state, type oforgan transplant, time post-transplant,co-administration of other immunosuppressants,and other clinical factors. The results ofthis test should be correlated with additionalclinical and laboratory data before changesin treatment regimens are made. Performed By: #### 1 1253-2 ####FLORINDA Monroe ([id number])[facility] ([facility])[address] [place] [address] CBC panel Auto (Bld)on 06-22 Erythrocyte distribution width (RBC) [Ratio] 15.1 % High 11.5-14.5 [facility] Comment on above: Performed By: #### 5 8410-2 ####FLORINDA Monroe ([id number])[facility] ([facility])[address] [place] [address] Hematocrit (Bld) [Volume fraction] 25.6 % Low 41.0-52.0 [facility] Comment on above: Performed By: #### 5 8410-2 ####FLORINDA Monroe ([id number])[facility] ([facility])[address] [place] [address] Hemoglobin (Bld) [Mass/Vol] 8.4 g/dL Low 13.5-17.5 [facility] Comment on above: Performed By: #### 5 8410-2 ####FLORINDA Monroe ([id number])[facility] ([facility])[address] [place] [address] MCH (RBC) [Entitic mass] 29.3 pg Normal 26.0-34.0 [facility] Comment on above: Performed By: #### 5 8410-2 ####FLORINDA Monroe ([id number])[facility] ([facility])[address] [place] [address] MCHC (RBC) [Mass/Vol] 32.8 g/dL Normal 32.0-36.0 [facility] Comment on above: Performed By: #### 5 8410-2 ####FLORINDA Monroe ([id number])[facility] ([facility])[address] [place] [address] MCV (RBC) [Entitic vol] 89 fL Normal 80-100 [facility] Comment on above: Performed By: #### 5 8410-2 ####FLORINDA Monroe ([id number])[facility] ([facility])[address] [place] [address] Nucleated RBC/100 WBC (Bld) [Ratio] 0.0 /100 WBCs Normal 0.0-0.0 [facility] Comment on above: Performed By: #### 5 8410-2 ####FLORINDA Monroe ([id number])[facility] ([facility])[address] [place] [address] Platelets (Bld) [#/Vol] 103 x10*3/uL Low 150-450 [facility] Comment on above: Performed By: #### 5 8410-2 ####FLORINDA Monroe ([id number])[facility] ([facility])[address] [place] [address] RBC (Bld) [#/Vol] 2.87 x10*6/uL Low 4.50-5.90 [facility] Comment on above: Performed By: #### 5 8410-2 ####FLORINDA Monroe ([id number])[facility] ([facility])[address] [place] [address] WBC (Bld) [#/Vol] 3.5 x10*3/uL Low 4.4-11.3 [facility] Comment on above: Performed By: #### 5 8410-2 ####FLORINDA Monroe ([id number])[facility] ([facility])[address] [place] [address] Heparin.unfractionatedon Heparin unfractionated Chromogenic method Qn (PPP) 0.2 IU/mL Normal See Comment Below for Therapeutic Ranges [facility] Comment on above: Order Comment: Obtai n 4 hours after any Heparin dosage change. Nursing to release order.The therapeutic reference range for UFH may be either 0.3-0.6 IU/mL or 0.3-0.7 IU/mL based on the clinical setting for anticoagulant therapy and the associated nomogram used. For Heparin dosing guidelines based on clinical scenario and Heparin Assay results, please refer to local Pharmacy and the [facility] Guidelines for Anticoagulation Therapy available on the [facility] intranet at: [email or web address] Performed By: #### 3 [phone] ####FLORINDA Monroe ([id number])[facility] ([facility])[id number] [place] [address] IR CVC TUNNELEDon 06-22-2024 IR CVC TUNNELED Normal [facility] Magnesiumon 06-22-2024 Magnesium [Mass/Vol] 1.59 mg/dL Low 1.60-2.40 [facility] [facility] Comment on above: Performed By: #### 1 9123-9 ####FLORINDA Monroe ([id number])[facility] ([facility])[address] [place] [address] Renal function 2000 panelon 06-22-2024 Albumin BCP dye [Mass/Vol] 2.7 g/dL Low 3.4-5.0 [facility] Comment on above: Performed By: #### 2 4362-6 ####FLORINDA Monroe ([id number])[facility] ([facility])[address] [place] [address] Anion gap [Moles/Vol] 11 mmol/L Normal 10-20 [facility] Comment on above: Performed By: #### 2 4362-6 ####FLORINDA Monroe ([id number])[facility] ([facility])[address] [place] [address] Calcium [Mass/Vol] 8.8 mg/dL Normal 8.6-10.6 [facility] Comment on above: Performed By: #### 2 4362-6 ####FLORINDA Monroe ([id number])[facility] ([facility])[address] [place] [address] Chloride [Moles/Vol] 96 mmol/L Low 98-107 [facility] Comment on above: Performed By: #### 2 4362-6 ####FLORINDA TARANGO L ([id number])[facility] ([facility])[address] [place] [address] CO2 [Moles/Vol] 39 mmol/L High 21-32 [facility] Comment on above: Performed By: #### 2 4362-6 ####FLORINDA Monroe ([id number])[facility] ([facility])[address] [place] [address] Creatinine [Mass/Vol] 1.35 mg/dL High 0.50-1.30 [facility] Comment on above: Performed By: #### 2 4362-6 ####FLORINDA Monroe ([id number])[facility] ([facility])[address] [place] [address] Glomerular filtration rate/1.73 sq M.predicted 62 mL/min/1.73m*2 Normal >60 [facility] Comment on above: Result Comment: Calc ulations of estimated GFR are performed using the 2020 CKD-EPI Study Refit equation without the race variable for the IDMS-Traceable creatinine methods.https://jasn.asnjournals.org/content/early/ASN. 6870961869 Performed By: #### 2 4362-6 ####FLORINDA Monroe ([id number])[facility] ([facility])[address] [place] [address] Glucose [Mass/Vol] 87 mg/dL Normal 74-99 [facility] Comment on above: Performed By: #### 2 4362-6 ####FLORINDA Monroe ([id number])[facility] ([facility])[address] [place] [address] Phosphate [Mass/Vol] 3.0 mg/dL Normal 2.5-4.9 [facility] Comment on above: Result Comment: MILD HEMOLYSIS DETECTED. The result may be falsely elevated due to hemolysis or other interferents. Clinical correlation is recommended. Repeat testing may be considered.The performance characteristics of phosphorus testing in heparinized plasma have been validated by the individual laboratory site where testing is performed. Testing on heparinized plasma is not approved by the FDA; however, such approval is not necessary. Performed By: #### 2 4362-6 ####FLORINDA Monroe ([id number])[facility] ([facility])[address] [place] [address] Potassium [Moles/Vol] 4.1 mmol/L Normal 3.5-5.3 [facility] Comment on above: Result Comment: MILD HEMOLYSIS DETECTED. The result may be falsely elevated due to hemolysis or other interferents. Clinical correlation is recommended. Repeat testing may be considered. Performed By: #### 2 4362-6 ####FLORINDA TARANGO L ([id number])[facility] ([facility])[address] [place] [address] Sodium [Moles/Vol] 142 mmol/L Normal 136-145 [facility] Comment on above: Performed By: #### 2 4362-6 ####FLORINDA Monroe ([id number])[facility] ([facility])[address] [place] [address] Urea nitrogen [Mass/Vol] 45 mg/dL High 6-23 [facility] Comment on above: Performed By: #### 2 4362-6 ####FLORINDA Monroe ([id number])[facility] ([facility])[address] [place] [address] Tacrolimuson 06-22-2024 Tacrolimus (Bld) [Mass/Vol] 4.4 ng/mL Normal <=15.0 [facility] Comment on above: Order Comment: NOTE: Result was obtained using achemiluminescent microparticle immunoassay(CMIA) on the Systems [employer] Developer i system.Optimal therapeutic ranges for immunosuppressantdrugs depend upon an individualpatient's current clinical state, type oforgan transplant, time post-transplant,co-administration of other immunosuppressants,and other clinical factors. The results ofthis test should be correlated with additionalclinical and laboratory data before changesin treatment regimens are made. Performed By: #### 1 1253-2 ####FLORINDA Monroe ([id number])[facility] ([facility])[address] [place] [address] CBC panel Auto (Bld)on 06-21 Erythrocyte distribution width (RBC) [Ratio] 15.7 % High 11.5-14.5 [facility] Comment on above: Performed By: #### 5 8410-2 ####FLORINDA Monroe ([id number])[facility] ([facility])[address] [place] [address] Hematocrit (Bld) [Volume fraction] 25.2 % Low 41.0-52.0 [facility] Comment on above: Performed By: #### 5 8410-2 ####FLORINDA Monroe ([id number])[facility] ([facility])[address] [place] [address] Hemoglobin (Bld) [Mass/Vol] 8.4 g/dL Low 13.5-17.5 [facility] Comment on above: Performed By: #### 5 8410-2 ####FLORINDA Monroe ([id number])[facility] ([facility])[address] [place] [address] MCH (RBC) [Entitic mass] 29.2 pg Normal 26.0-34.0 [facility] Comment on above: Performed By: #### 5 8410-2 ####FLORINDA Monroe ([id number])[facility] ([facility])[address] [place] [address] MCHC (RBC) [Mass/Vol] 33.3 g/dL Normal 32.0-36.0 [facility] Comment on above: Performed By: #### 5 8410-2 ####FLORINDA Monroe ([id number])[facility] ([facility])[address] [place] [address] MCV (RBC) [Entitic vol] 88 fL Normal 80-100 [facility] Comment on above: Performed By: #### 5 8410-2 ####FLORINDA Monroe ([id number])[facility] ([facility])[address] [place] [address] Nucleated RBC/100 WBC (Bld) [Ratio] 0.0 /100 WBCs Normal 0.0-0.0 [facility] Comment on above: Performed By: #### 5 8410-2 ####FLORINDA Monroe ([id number])[facility] ([facility])[address] [place] [address] Platelets (Bld) [#/Vol] 100 x10*3/uL Low 150-450 [facility] Comment on above: Performed By: #### 5 8410-2 ####FLORINDA Monroe ([id number])[facility] ([facility])[address] [place] [address] RBC (Bld) [#/Vol] 2.88 x10*6/uL Low 4.50-5.90 [facility] Comment on above: Performed By: #### 5 8410-2 ####FLORINDA Monroe ([id number])[facility] ([facility])[address] [place] [address] WBC (Bld) [#/Vol] 3.3 x10*3/uL Low 4.4-11.3 [facility] Comment on above: Performed By: #### 5 8410-2 ####FLORINDA Monroe ([id number])[facility] ([facility])[address] [place] [address] Heparin.unfractionatedon Heparin unfractionated Chromogenic method Qn (PPP) 0.4 IU/mL Normal See Comment Below for Therapeutic Ranges [facility] Comment on above: Order Comment: Obtai n 4 hours after any Heparin dosage change. Nursing to release order.The therapeutic reference range for UFH may be either 0.3-0.6 IU/mL or 0.3-0.7 IU/mL based on the clinical setting for anticoagulant therapy and the associated nomogram used. For Heparin dosing guidelines based on clinical scenario and Heparin Assay results, please refer to local Pharmacy and the [facility] Guidelines for Anticoagulation Therapy available on the [facility] intranet at: [email or web address] DETECTED. The result may be affected due to hemolysis, icterus, lipemia, or other interferents. Clinical correlation is recommended. Repeat testing may be considered. Performed By: #### 3 274-8 ####FLORINDA Monroe ([id number])[facility] ([facility])[address] [place] [address] Heparin unfractionated Chromogenic method Qn (PPP) 0.5 IU/mL Normal See Comment Below for Therapeutic Ranges [facility] Comment on above: Order Comment: Obtai n 4 hours after any Heparin dosage change. Nursing to release order.The therapeutic reference range for UFH may be either 0.3-0.6 IU/mL or 0.3-0.7 IU/mL based on the clinical setting for anticoagulant therapy and the associated nomogram used. For Heparin dosing guidelines based on clinical scenario and Heparin Assay results, please refer to local Pharmacy and the [facility] Guidelines for Anticoagulation Therapy available on the [facility] intranet at: [email or web address]_[email or web address] Performed By: #### 3 274-8 ####FLORINDA Monroe ([id number])[facility] ([facility])[address] [place] [address] Magnesiumon 06-21-2024 Magnesium [Mass/Vol] 1.96 mg/dL Normal 1.60-2.40 [facility] Comment on above: Result Comment: [facility] HEMOLYSIS DETECTED. The result may be falsely elevated due to hemolysis or other interferents. Clinical correlation is recommended. Repeat testing may be considered. Performed By: #### 1 9123-9 ####FLORINDA Monroe ([id number])[facility] ([facility])[address] [place] [address] Renal function 2000 panelon 06-21-2024 Albumin BCP dye [Mass/Vol] 3.0 g/dL Low 3.4-5.0 [facility] Comment on above: Performed By: #### 2 4362-6 ####FLORINDA Monroe ([id number])[facility] ([facility])[address] [place] [address] Anion gap [Moles/Vol] 12 mmol/L Normal 10-20 [facility] Comment on above: Performed By: #### 2 4362-6 ####FLORINDA TARANGO L ([id number])[facility] ([facility])[address] [place] [address] Calcium [Mass/Vol] 9.4 mg/dL Normal 8.6-10.6 [facility] Comment on above: Performed By: #### 2 4362-6 ####FLORINDA TARANGO L ([id number])[facility] ([facility])[address] [place] [address] Chloride [Moles/Vol] 95 mmol/L Low 98-107 [facility] Comment on above: Performed By: #### 2 4362-6 ####FLORINDA Monroe ([id number])[facility] ([facility])[address] [place] [address] CO2 [Moles/Vol] 35 mmol/L High 21-32 [facility] Comment on above: Performed By: #### 2 4362-6 ####FLORINDA Monroe ([id number])[facility] ([facility])[address] [place] [address] Creatinine [Mass/Vol] 1.54 mg/dL High 0.50-1.30 [facility] Comment on above: Performed By: #### 2 4362-6 ####FLORINDA Monroe ([id number])[facility] ([facility])[address] [place] [address] Glomerular filtration rate/1.73 sq M.predicted 53 mL/min/1.73m*2 Low >60 [facility] Comment on above: Result Comment: Calc ulations of estimated GFR are performed using the 2020 CKD-EPI Study Refit equation without the race variable for the IDMS-Traceable creatinine methods.https://jasn.asnjournals.org/content/early//ASN. 0617769868 Performed By: #### 2 4362-6 ####FLORINDA Monroe ([id number])[facility] ([facility])[address] [place] [address] Glucose [Mass/Vol] 119 mg/dL High 74-99 [facility] Comment on above: Performed By: #### 2 4362-6 ####FLORINDA Monroe ([id number])[facility] ([facility])[address] [place] [address] Phosphate [Mass/Vol] 1.7 mg/dL Low 2.5-4.9 [facility] Comment on above: Result Comment: The performance characteristics of phosphorus testing in heparinized plasma have been validated by the individual laboratory site where testing is performed. Testing on heparinized plasma is not approved by the FDA; however, such approval is not necessary. Performed By: #### 2 4362-6 ####FLORINDA Monroe ([id number])[facility] ([facility])[address] [place] [address] Potassium [Moles/Vol] 4.0 mmol/L Normal 3.5-5.3 [facility] Comment on above: Performed By: #### 2 4362-6 ####FLORINDA Monroe ([id number])[facility] ([facility])[address] [place] [address] Sodium [Moles/Vol] 138 mmol/L Normal 136-145 [facility] Comment on above: Performed By: #### 2 4362-6 ####FLORINDA Monroe ([id number])[facility] ([facility])[address] [place] [address] Urea nitrogen [Mass/Vol] 46 mg/dL High 6-23 [facility] Comment on above: Performed By: #### 2 4362-6 ####FLORINDA Monroe ([id number])[facility] ([facility])[address] [place] [address] Albumin BCP dye [Mass/Vol] 3.0 g/dL Low 3.4-5.0 [facility] Comment on above: Result Comment: [facility] HEMOLYSIS DETECTED. The result may be falsely elevated due to hemolysis or other interferents. Clinical correlation is recommended. Repeat testing may be considered. Performed By: #### 2 4362-6 ####FLORINDA TARANGO L ([id number])[facility] ([facility])[address] [place] [address] Anion gap [Moles/Vol] 13 mmol/L Normal 10-20 [facility] Comment on above: Performed By: #### 2 4362-6 ####FLORINDA Monroe ([id number])[facility] ([facility])[address] [place] [address] Calcium [Mass/Vol] 9.1 mg/dL Normal 8.6-10.6 [facility] Comment on above: Performed By: #### 2 4362-6 ####FLORINDA Monroe ([id number])[facility] ([facility])[address] [place] [address] Chloride [Moles/Vol] 96 mmol/L Low 98-107 [facility] Comment on above: Performed By: #### 2 4362-6 ####FLORINDA TARANGO L ([id number])[facility] ([facility])[address] [place] [address] CO2 [Moles/Vol] 36 mmol/L High 21-32 [facility] Comment on above: Performed By: #### 2 4362-6 ####FLORINDA Monroe ([id number])[facility] ([facility])[address] [place] [address] Creatinine [Mass/Vol] 1.61 mg/dL High 0.50-1.30 [facility] Comment on above: Performed By: #### 2 4362-6 ####FLORINDA Monroe ([id number])[facility] ([facility])[address] [place] [address] Glomerular filtration rate/1.73 sq M.predicted 50 mL/min/1.73m*2 Low >60 [facility] Comment on above: Result Comment: Calc ulations of estimated GFR are performed using the 2020 CKD-EPI Study Refit equation without the race variable for the IDMS-Traceable creatinine methods.https://jasn.asnjournals.org/content/early/ASN. 7706871859 Performed By: #### 2 4362-6 ####FLORINDA Monroe ([id number])[facility] ([facility])[address] [place] [address] Glucose [Mass/Vol] 99 mg/dL Normal 74-99 [facility] Comment on above: Performed By: #### 2 4362-6 ####FLORINDA Monroe ([id number])[facility] ([facility])[address] [place] [address] Phosphate [Mass/Vol] 2.7 mg/dL Normal 2.5-4.9 [facility] Comment on above: Result Comment: [facility] HEMOLYSIS DETECTED. The result may be falsely elevated due to hemolysis or other interferents. Clinical correlation is recommended. Repeat testing may be considered.The performance characteristics of phosphorus testing in heparinized plasma have been validated by the individual laboratory site where testing is performed. Testing on heparinized plasma is not approved by the FDA; however, such approval is not necessary. Performed By: #### 2 4362-6 ####FLORINDA Monroe ([id number])[facility] ([facility])[address] [place] [address] Potassium [Moles/Vol] 5.6 mmol/L High 3.5-5.3 [facility] Comment on above: Result Comment: [facility] HEMOLYSIS DETECTED. The result may be falsely elevated due to hemolysis or other interferents. Clinical correlation is recommended. Repeat testing may be considered. Performed By: #### 2 4362-6 ####FLORINDA Monroe ([id number])[facility] ([facility])[address] [place] [address] Sodium [Moles/Vol] 139 mmol/L Normal 136-145 [facility] Comment on above: Performed By: #### 2 4362-6 ####FLORINDA Monroe ([id number])[facility] ([facility])[address] [place] [address] Urea nitrogen [Mass/Vol] 51 mg/dL High 6-23 [facility] Comment on above: Performed By: #### 2 4362-6 ####FLORINDA TARANGO L ([id number])[facility] ([facility])[address] [place] [address] Tacrolimuson 06-21-2024 Tacrolimus (Bld) [Mass/Vol] 4.8 ng/mL Normal <=15.0 [facility] Comment on above: Order Comment: NOTE: Result was obtained using achemiluminescent microparticle immunoassay(CMIA) on the Systems [employer] Developer i system.Optimal therapeutic ranges for immunosuppressantdrugs depend upon an individualpatient's current clinical state, type oforgan transplant, time post-transplant,co-administration of other immunosuppressants,and other clinical factors. The results ofthis test should be correlated with additionalclinical and laboratory data before changesin treatment regimens are made. Performed By: #### 1 1253-2 ####FLORINDA Monroe ([id number])[facility] ([facility])[address] [place] [address] CBC W Auto Differential pane l (Bld)on 06-20-2024 Basophils (Bld) [#/Vol] 0.01 x10*3/uL Normal 0.00-0.10 [facility] Comment on above: Performed By: #### 5 7021-8 ####FLORINDA Monroe ([id number])[facility] ([facility])[address] [place] [address] Basophils/100 WBC (Bld) 0.4 % Normal 0.0-2.0 [facility] Comment on above: Performed By: #### 5 7021-8 ####FLORINDA Monroe ([id number])[facility] ([facility])[address] [place] [address] Eosinophils (Bld) [#/Vol] 0.05 x10*3/uL Normal 0.00-0.70 [facility] Comment on above: Performed By: #### 5 7021-8 ####FLORINDA Monroe ([id number])[facility] ([facility])[address] [place] [address] Eosinophils/100 WBC (Bld) 1.8 % Normal 0.0-6.0 [facility] Comment on above: Performed By: #### 5 7021-8 ####FLORINDA Monroe ([id number])[facility] ([facility])[address] [place] [address] Erythrocyte distribution width (RBC) [Ratio] 15.6 % High 11.5-14.5 [facility] Comment on above: Performed By: #### 5 7021-8 ####FLORINDA Monroe ([id number])[facility] ([facility])[address] [place] [address] Hematocrit (Bld) [Volume fraction] 26.6 % Low 41.0-52.0 [facility] Comment on above: Performed By: #### 5 7021-8 ####FLORINDA Monroe ([id number])[facility] ([facility])[address] [place] [address] Hemoglobin (Bld) [Mass/Vol] 8.5 g/dL Low 13.5-17.5 [facility] Comment on above: Performed By: #### 5 7021-8 ####FLORINDA Monroe ([id number])[facility] ([facility])[address] [place] [address] Immature granulocytes (Bld) [#/Vol] 0.01 x10*3/uL Normal 0.00-0.70 [facility] Comment on above: Performed By: #### 5 7021-8 ####FLORINDA Monroe ([id number])[facility] ([facility])[address] [place] [address] Immature granulocytes/100 WBC (Bld) 0.4 % Normal 0.0-0.9 [facility] Comment on above: Result Comment: Nathaly ture Granulocyte Count (IG) includes promyelocytes, myelocytes and metamyelocytes but does not include bands. Percent differential counts (%) should be interpreted in the context of the absolute cell counts (cells/UL). Performed By: #### 5 7021-8 ####FLORINDA Monroe ([id number])[facility] ([facility])[address] [place] [address] Lymphocytes (Bld) [#/Vol] 0.61 x10*3/uL Low 1.20-4.80 [facility] Comment on above: Performed By: #### 5 7021-8 ####FLORINDA Monroe ([id number])[facility] ([facility])[address] [place] [address] Lymphocytes/100 WBC (Bld) 21.9 % Normal 13.0-44.0 [facility] Comment on above: Performed By: #### 5 7021-8 ####FLORINDA Monroe ([id number])[facility] ([facility])[address] [place] [address] MCH (RBC) [Entitic mass] 29.0 pg Normal 26.0-34.0 [facility] Comment on above: Performed By: #### 5 7021-8 ####FLORINDA Monroe ([id number])[facility] ([facility])[address] [place] [address] MCHC (RBC) [Mass/Vol] 32.0 g/dL Normal 32.0-36.0 [facility] Comment on above: Performed By: #### 5 7021-8 ####FLORINDA Monroe ([id number])[facility] ([facility])[address] [place] [address] MCV (RBC) [Entitic vol] 91 fL Normal 80-100 [facility] Comment on above: Performed By: #### 5 7021-8 ####FLORINDA Monroe ([id number])[facility] ([facility])[address] [place] [address] Monocytes (Bld) [#/Vol] 0.49 x10*3/uL Normal 0.10-1.00 [facility] Comment on above: Performed By: #### 5 7021-8 ####FLORINDA Monroe ([id number])[facility] ([facility])[address] [place] [address] Monocytes/100 WBC (Bld) 17.6 % Normal 2.0-10.0 [facility] Comment on above: Performed By: #### 5 7021-8 ####FLORINDA Monroe ([id number])[facility] ([facility])[address] [place] [address] Neutrophils (Bld) [#/Vol] 1.62 x10*3/uL Normal 1.20-7.70 [facility] Comment on above: Result Comment: Perc ent differential counts (%) should be interpreted in the context of the absolute cell counts (cells/uL). Performed By: #### 5 7021-8 ####FLORINDA Monroe ([id number])[facility] ([facility])[address] [place] [address] Neutrophils/100 WBC (Bld) 57.9 % Normal 40.0-80.0 [facility] Comment on above: Performed By: #### 5 7021-8 ####FLORINDA Monroe ([id number])[facility] ([facility])[address] [place] [address] Nucleated RBC/100 WBC (Bld) [Ratio] 0.0 /100 WBCs Normal 0.0-0.0 [facility] Comment on above: Performed By: #### 5 7021-8 ####FLORINDA Monroe ([id number])[facility] ([facility])[address] [place] [address] Platelets (Bld) [#/Vol] 81 x10*3/uL Low 150-450 [facility] Comment on above: Performed By: #### 5 7021-8 ####FLORINDA Monroe ([id number])[facility] ([facility])[address] [place] [address] RBC (Bld) [#/Vol] 2.93 x10*6/uL Low 4.50-5.90 [facility] Comment on above: Performed By: #### 5 7021-8 ####FLORINDA Monroe ([id number])[facility] ([facility])[address] [place] [address] WBC (Bld) [#/Vol] 2.8 x10*3/uL Low 4.4-11.3 [facility] Comment on above: Performed By: #### 5 7021-8 ####FLORINDA Monroe ([id number])[facility] ([facility])[address] [place] [address] CBC panel Auto (Bld)on 06-20 Erythrocyte distribution width (RBC) [Ratio] 15.9 % High 11.5-14.5 [facility] Comment on above: Performed By: #### 5 8410-2 ####FLORINDA Monroe ([id number])[facility] ([facility])[address] [place] [address] Hematocrit (Bld) [Volume fraction] 26.1 % Low 41.0-52.0 [facility] Comment on above: Performed By: #### 5 8410-2 ####FLORINDA Monroe ([id number])[facility] ([facility])[address] [place] [address] Hemoglobin (Bld) [Mass/Vol] 8.2 g/dL Low 13.5-17.5 [facility] Comment on above: Performed By: #### 5 8410-2 ####FLORINDA Monroe ([id number])[facility] ([facility])[address] [place] [address]897 MCH (RBC) [Entitic mass] 28.6 pg Normal 26.0-34.0 [facility] Comment on above: Performed By: #### 5 8410-2 ####FLORINDA Monroe ([id number])[facility] ([facility])[address] [place] [address] MCHC (RBC) [Mass/Vol] 31.4 g/dL Low 32.0-36.0 [facility] Comment on above: Performed By: #### 5 8410-2 ####FLORINDA Monroe ([id number])[facility] ([facility])[address] [place] [address]777 MCV (RBC) [Entitic vol] 91 fL Normal 80-100 [facility] Comment on above: Performed By: #### 5 8410-2 ####FLORINDA Monroe ([id number])[facility] ([facility])[address] [place] [address]25[address] Nucleated RBC/100 WBC (Bld) [Ratio] 0.0 /100 WBCs Normal 0.0-0.0 [facility] Comment on above: Performed By: #### 5 8410-2 ####FLORINDA Monroe ([id number])[facility] ([facility])[address] [place] [address] Platelets (Bld) [#/Vol] 85 x10*3/uL Low 150-450 [facility] Comment on above: Performed By: #### 5 8410-2 ####FLORINDA Monroe ([id number])[facility] ([facility])[address] [place] [address] RBC (Bld) [#/Vol] 2.87 x10*6/uL Low 4.50-5.90 [facility] Comment on above: Performed By: #### 5 8410-2 ####FLORINDA Monroe ([id number])[facility] ([facility])[address] [place] [address] WBC (Bld) [#/Vol] 3.3 x10*3/uL Low 4.4-11.3 [facility] Comment on above: Performed By: #### 5 8410-2 ####FLORINDA Monroe ([id number])[facility] ([facility])[address] [place] [address] ECG 12-LEADon 06-20-2024 ECG 12-LEAD Ventricular Rate 70 Atrial Rate 70 P-R Interval 136 QRS Duration 158 Q-T Interval 378 QTC Calculation(Bazett) 408 P Afton 8 R Afton -75 T Afton -48 QRS Count 11 Q Onset 220 P Onset 152 P Offset 195 T Offset 409 QTC Fredericia 398 Diagnosis Sinus rhythm with PAC Right bundle branch block Left anterior fascicular block Bifascicular block T wave abnormality, consider inferolateral ischemia Abnormal ECG When compared with ECG of 19-JUN-2024 08:54, Sinus rhythm has replaced Atrial fibrillation T wave inversion now evident in Inferior leads T wave inversion more evident in Anterolateral leads QT has shortened Confirmed by Chandu Kelly ([id number]) on 06/23/2024 10:05:49 AM Normal [facility] Heparin.unfractionatedon Heparin unfractionated Chromogenic method Qn (PPP) 0.6 IU/mL Normal See Comment Below for Therapeutic Ranges [facility] Comment on above: Order Comment: The t herapeutic reference range for UFH may be either 0.3-0.6 IU/mL or 0.3-0.7 IU/mL based on the clinical setting for anticoagulant therapy and the associated nomogram used. For Heparin dosing guidelines based on clinical scenario and Heparin Assay results, please refer to local Pharmacy and the [facility] Guidelines for Anticoagulation Therapy available on the [facility] intranet at: [email or web address] Performed By: #### 3 274-8 ####FLORINDA Monroe ([id number])[facility] ([facility])[address] [place] [address] Magnesiumon 06-20-2024 Magnesium [Mass/Vol] 1.71 mg/dL Normal 1.60-2.40 [facility] Comment on above: Performed By: #### 1 9123-9 ####FLORINDA Monroe ([id number])[facility] ([facility])[address] [place] [address] 43208 Renal function 2000 panelon 06-20-2024 Albumin BCP dye [Mass/Vol] 2.8 g/dL Low 3.4-5.0 [facility] Comment on above: Performed By: #### 2 4362-6 ####FLORINDA Monroe ([id number])[facility] ([facility])[address] [place] [address] 34575 Anion gap [Moles/Vol] 11 mmol/L Normal 10-20 [facility] Comment on above: Performed By: #### 2 4362-6 ####FLORINDA Monroe ([id number])[facility] ([facility])[address] [place] [address] 31296 Calcium [Mass/Vol] 9.2 mg/dL Normal 8.6-10.6 [facility] Comment on above: Performed By: #### 2 4362-6 ####FLORINDA Monroe ([id number])[facility] ([facility])[address] [place] [address] Chloride [Moles/Vol] 99 mmol/L Normal 98-107 [facility] Comment on above: Performed By: #### 2 4362-6 ####FLORINDA Monroe ([id number])[facility] ([facility])[address] [place] [address] CO2 [Moles/Vol] 35 mmol/L High 21-32 [facility] Comment on above: Performed By: #### 2 4362-6 ####FLORINDA Monroe ([id number])[facility] ([facility])[address] [place] [address] Creatinine [Mass/Vol] 1.95 mg/dL High 0.50-1.30 [facility] Comment on above: Performed By: #### 2 4362-6 ####FLORINDA Monroe ([id number])[facility] ([facility])[address] [place] [address] Glomerular filtration rate/1.73 sq M.predicted 40 mL/min/1.73m*2 Low >60 [facility] Comment on above: Result Comment: Calc ulations of estimated GFR are performed using the 2020 CKD-EPI Study Refit equation without the race variable for the IDMS-Traceable creatinine methods.https://jasn.asnjournals.org/content//ASN. 5309550583 Performed By: #### 2 4362-6 ####FLORINDA Monroe ([id number])[facility] ([facility])[address] [place] [address] Glucose [Mass/Vol] 103 mg/dL High 74-99 [facility] Comment on above: Performed By: #### 2 4362-6 ####FLORINDA Monroe ([id number])[facility] ([facility])[address] [place] [address] Phosphate [Mass/Vol] 3.2 mg/dL Normal 2.5-4.9 [facility] Comment on above: Result Comment: The performance characteristics of phosphorus testing in heparinized plasma have been validated by the individual laboratory site where testing is performed. Testing on heparinized plasma is not approved by the FDA; however, such approval is not necessary. Performed By: #### 2 4362-6 ####FLORINDA Monroe ([id number])[facility] ([facility])[address] [place] [address] Potassium [Moles/Vol] 4.3 mmol/L Normal 3.5-5.3 [facility] Comment on above: Performed By: #### 2 4362-6 ####FLORINDA Monroe ([id number])[facility] ([facility])[address] [place] [address] Sodium [Moles/Vol] 141 mmol/L Normal 136-145 [facility] Comment on above: Performed By: #### 2 4362-6 ####FLORINDA Monroe ([id number])[facility] ([facility])[address] [place] [address] Urea nitrogen [Mass/Vol] 54 mg/dL High 6-23 [facility] Comment on above: Performed By: #### 2 4362-6 ####FLORINDA Monroe ([id number])[facility] ([facility])[address] [place] [address] TRANSTHORACIC ECHO (TTE) COM PLETEon 06-20-2024 TRANSTHORACIC ECHO (TTE) COMPLETE Normal [facility] Tacrolimuson 06-20-2024 Tacrolimus (Bld) [Mass/Vol] 5.9 ng/mL Normal <=15.0 [facility] Comment on above: Order Comment: NOTE: Result was obtained using achemiluminescent microparticle immunoassay(CMIA) on the [employer] i system.Optimal therapeutic ranges for immunosuppressantdrugs depend upon an individualpatient's current clinical state, type oforgan transplant, time post-transplant,co-administration of other immunosuppressants,and other clinical factors. The results ofthis test should be correlated with additionalclinical and laboratory data before changesin treatment regimens are made. Performed By: #### 1 1253-2 ###ELIA Monroe ([id number])[facility] ([facility])[address] [place] [address] Vancomycinon 06-20-2024 Vancomycin [Mass/Vol] 18.3 ug/mL Normal 5.0-20.0 [facility] Comment on above: Order Comment: Vanco mycin levels can be monitored according to area under the curve (AUC) or concentration (ug/mL). The preferred monitoring strategy is determined by the patient's renal function and indication for therapy.For AUC monitoring, a random vancomycin level should be interpreted in the context of AUC rather than the concentration at a single point in time.For concentration monitoring, a trough concentration drawn immediately prior to the next dose is preferred.Therapeutic ranges using concentration-guided results:Peak (all ages): 30.0-40.0 ug/mLTrough (all ages): 10.0-20.0 ug/mL Performed By: #### 2 0578-1 ####FLORINDA Monroe ([id number])[facility] ([facility])[address] [place] [address] CBC W Auto Differential pane l (Bld)on 06-19-2024 Basophils (Bld) [#/Vol] 0.01 x10*3/uL Normal 0.00-0.10 [facility] Comment on above: Performed By: #### 5 7021-8 ####FLORINDA Monroe ([id number])[facility] ([facility])[address] [place] [address] Basophils/100 WBC (Bld) 0.2 % Normal 0.0-2.0 [facility] Comment on above: Performed By: #### 5 7021-8 ####FLORINDA Monroe ([id number])[facility] ([facility])[address] [place] [address] Eosinophils (Bld) [#/Vol] 0.14 x10*3/uL Normal 0.00-0.70 [facility] Comment on above: Performed By: #### 5 7021-8 ####FLORINDA Monroe ([id number])[facility] ([facility])[address] [place] [address] Eosinophils/100 WBC (Bld) 3.3 % Normal 0.0-6.0 [facility] Comment on above: Performed By: #### 5 7021-8 ####FLORINDA Monroe ([id number])[facility] ([facility])[address] [place] [address] Erythrocyte distribution width (RBC) [Ratio] 15.6 % High 11.5-14.5 [facility] Comment on above: Performed By: #### 5 7021-8 ####FLORINDA Monroe ([id number])[facility] ([facility])[address] [place] [address] 83862 Hematocrit (Bld) [Volume fraction] 23.9 % Low 41.0-52.0 [facility] Comment on above: Performed By: #### 5 7021-8 ####FLORINDA Monroe ([id number])[facility] ([facility])[address] [place] [address] 11895 Hemoglobin (Bld) [Mass/Vol] 7.7 g/dL Low 13.5-17.5 [facility] Comment on above: Performed By: #### 5 7021-8 ####FLORINDA Monroe ([id number])[facility] ([facility])[address] [place] [address] 71682 Immature granulocytes (Bld) [#/Vol] 0.03 x10*3/uL Normal 0.00-0.70 [facility] Comment on above: Performed By: #### 5 7021-8 ####FLORINDA Monroe ([id number])[facility] ([facility])[address] [place] [address] 68396 Immature granulocytes/100 WBC (Bld) 0.7 % Normal 0.0-0.9 [facility] Comment on above: Result Comment: Nathaly ture Granulocyte Count (IG) includes promyelocytes, myelocytes and metamyelocytes but does not include bands. Percent differential counts (%) should be interpreted in the context of the absolute cell counts (cells/UL). Performed By: #### 5 7021-8 ####FLORINDA Monroe ([id number])[facility] ([facility])[address] [place] [address] 87315 Lymphocytes (Bld) [#/Vol] 0.78 x10*3/uL Low 1.20-4.80 [facility] Comment on above: Performed By: #### 5 7021-8 ####FLORINDA Monroe ([id number])[facility] ([facility])[address] [place] [address] 92084 Lymphocytes/100 WBC (Bld) 18.5 % Normal 13.0-44.0 [facility] Comment on above: Performed By: #### 5 7021-8 ####FLORINDA Monroe ([id number])[facility] ([facility])[address] [place] [address] 11418 MCH (RBC) [Entitic mass] 28.5 pg Normal 26.0-34.0 [facility] Comment on above: Performed By: #### 5 7021-8 ####FLORINDA Monroe ([id number])[facility] ([facility])[address] [place] [address] 78237 MCHC (RBC) [Mass/Vol] 32.2 g/dL Normal 32.0-36.0 [facility] Comment on above: Performed By: #### 5 7021-8 ####FLORINDA Monroe ([id number])[facility] ([facility])[address] [place] [address] 09399 MCV (RBC) [Entitic vol] 89 fL Normal 80-100 [facility] Comment on above: Performed By: #### 5 7021-8 ####FLORINDA Monroe ([id number])[facility] ([facility])[address] [place] [address] 57992 Monocytes (Bld) [#/Vol] 0.67 x10*3/uL Normal 0.10-1.00 [facility] Comment on above: Performed By: #### 5 7021-8 ####FLORINDA Monroe ([id number])[facility] ([facility])[address] [place] [address] Monocytes/100 WBC (Bld) 15.9 % Normal 2.0-10.0 [facility] Comment on above: Performed By: #### 5 7021-8 ####FLORINDA Monroe ([id number])[facility] ([facility])[address] [place] [address] Neutrophils (Bld) [#/Vol] 2.58 x10*3/uL Normal 1.20-7.70 [facility] Comment on above: Result Comment: Perc ent differential counts (%) should be interpreted in the context of the absolute cell counts (cells/uL). Performed By: #### 5 7021-8 ####FLORINDA Monroe ([id number])[facility] ([facility])[address] [place] [address] Neutrophils/100 WBC (Bld) 61.4 % Normal 40.0-80.0 [facility] Comment on above: Performed By: #### 5 7021-8 ####FLORINDA Monroe ([id number])[facility] ([facility])[address] [place] [address] Nucleated RBC/100 WBC (Bld) [Ratio] 0.0 /100 WBCs Normal 0.0-0.0 [facility] Comment on above: Performed By: #### 5 7021-8 ####FLORINDA Monroe ([id number])[facility] ([facility])[address] [place] [address] Platelets (Bld) [#/Vol] 74 x10*3/uL Low 150-450 [facility] Comment on above: Performed By: #### 5 7021-8 ####FLORINDA Monroe ([id number])[facility] ([facility])[address] [place] [address] RBC (Bld) [#/Vol] 2.70 x10*6/uL Low 4.50-5.90 [facility] Comment on above: Performed By: #### 5 7021-8 ####FLORINDA Monroe ([id number])[facility] ([facility])[address] [place] [address] 10995 WBC (Bld) [#/Vol] 4.2 x10*3/uL Low 4.4-11.3 [facility] Comment on above: Performed By: #### 5 7021-8 ####FLORINDA Monroe ([id number])[facility] ([facility])[address] [place] [address] 88151 CBC panel Auto (Bld)on 06-19 Erythrocyte distribution width (RBC) [Ratio] 15.9 % High 11.5-14.5 [facility] Comment on above: Performed By: #### 5 8410-2 ####FLORINDA Monroe ([id number])[facility] ([facility])[id number] [place] [address] 76459 Hematocrit (Bld) [Volume fraction] 25.4 % Low 41.0-52.0 [facility] Comment on above: Performed By: #### 5 8410-2 ####FLORINDA Monroe ([id number])[facility] ([facility])[address] [place] [address] 11443 Hemoglobin (Bld) [Mass/Vol] 8.3 g/dL Low 13.5-17.5 [facility] Comment on above: Performed By: #### 5 8410-2 ####FLORINDA Monroe ([id number])[facility] ([facility])[address] [place] [address] 27698 MCH (RBC) [Entitic mass] 30.1 pg Normal 26.0-34.0 [facility] Comment on above: Performed By: #### 5 8410-2 ####FLORINDA Monroe ([id number])[facility] ([facility])[address] [place] [address] 77439 MCHC (RBC) [Mass/Vol] 32.7 g/dL Normal 32.0-36.0 [facility] Comment on above: Performed By: #### 5 8410-2 ####FLORINDA Monroe ([id number])[facility] ([facility])[address] [place] [address] MCV (RBC) [Entitic vol] 92 fL Normal 80-100 [facility] Comment on above: Performed By: #### 5 8410-2 ####FLORINDA Monroe ([id number])[facility] ([facility])[address] [place] [address] Nucleated RBC/100 WBC (Bld) [Ratio] 0.0 /100 WBCs Normal 0.0-0.0 [facility] Comment on above: Performed By: #### 5 8410-2 ####FLORINDA Monroe ([id number])[facility] ([facility])[id number] [place] [address] 57073 Platelets (Bld) [#/Vol] 122 x10*3/uL Low 150-450 [facility] Comment on above: Performed By: #### 5 8410-2 ####FLORINDA Monroe ([id number])[facility] ([facility])[address] [place] [address] 12416 RBC (Bld) [#/Vol] 2.76 x10*6/uL Low 4.50-5.90 [facility] Comment on above: Performed By: #### 5 8410-2 ####FLORINDA Monroe ([id number])[facility] ([facility])[address] [place] [address] WBC (Bld) [#/Vol] 3.1 x10*3/uL Low 4.4-11.3 [facility] Comment on above: Performed By: #### 5 8410-2 ####FLORINDA Monroe ([id number])[facility] ([facility])[address] [place] [address] ECG 12-LEADon 06-19-2024 ECG 12-LEAD Ventricular Rate 103 Atrial Rate 103 QRS Duration 158 Q-T Interval 410 QTC Calculation(Bazett) 537 R Afton -87 T Afton 68 QRS Count 16 Q Onset 219 T Offset 424 QTC Fredericia 491 Diagnosis Atrial fibrillation with rapid ventricular response Left axis deviation Right bundle branch block Abnormal ECG When compared with ECG of 19-JUN-2024 08:54, No significant change was found Confirmed by Chandu Kelly ([id number]) on 06/26/2024 10:48:18 AM Normal [facility] ECG 12-LEAD Ventricular Rate 92 Atrial Rate 92 P-R Interval 134 QRS Duration 162 Q-T Interval 416 QTC Calculation(Bazett) 514 P Afton 67 R Afton 253 T Afton 33 QRS Count 15 Q Onset 216 P Onset 149 P Offset 195 T Offset 424 QTC Fredericia 479 Diagnosis Sinus rhythm with Premature supraventricular complexes Right bundle branch block Abnormal ECG When compared with ECG of 19-JUN-2024 08:28, Sinus rhythm has replaced Atrial fibrillation Confirmed by Chandu Kelly ([id number]) on 06/26/2024 10:48:24 AM Normal [facility] Glucose Test strip manual (B ld) [Mass/Vol]on 06-19-2024 Glucose [Mass/Vol] 99 mg/dL Normal 74-99 [facility] Comment on above: Performed By: #### 2 341-6 ####FLORINDA Monroe ([id number])[facility] ([facility])[address] [place] [address] 38206 Heparin.unfractionatedon Heparin unfractionated Chromogenic method Qn (PPP) 0.3 IU/mL Normal See Comment Below for Therapeutic Ranges [facility] Comment on above: Order Comment: Obtai n 4 hours after any Heparin dosage change. Nursing to release order.The therapeutic reference range for UFH may be either 0.3-0.6 IU/mL or 0.3-0.7 IU/mL based on the clinical setting for anticoagulant therapy and the associated nomogram used. For Heparin dosing guidelines based on clinical scenario and Heparin Assay results, please refer to local Pharmacy and the [facility] Guidelines for Anticoagulation Therapy available on the [facility] intranet at: [email or web address] Performed By: #### 3 274-8 ####FLORINDA Monroe ([id number])[facility] ([facility])[address] [place] [address] [place] [address] Magnesiumon 06-19-2024 Magnesium [Mass/Vol] 2.07 mg/dL Normal 1.60-2.40 [facility] Comment on above: Result Comment: MILD HEMOLYSIS DETECTED. The result may be falsely elevated due to hemolysis or other interferents. Clinical correlation is recommended. Repeat testing may be considered. Performed By: #### 1 9123-9 ####FLORINDA Monroe ([id number])[facility] LAB ([facility])[id number] [place] [address]182 Natriuretic peptide B [Mass/ Vol]on 06-19-2024 Natriuretic peptide B (Bld) [Mass/Vol] 2142 pg/mL High 0-99 [facility] Comment on above: Order Comment: <100 pg/mL - Heart failure [id number] pg/mL - Intermediate probability of acute heart failure exacerbation. Correlate with clinical context and patient history. >=300 pg/mL - Heart Failure likely. Correlate with clinical context and patient history.Biotin interference may cause falsely decreased results. Patients taking a Biotin dose of up to 5 mg/day should refrain from taking Biotin for 24 hours before sample collection. Providers may contact their local laboratory for further information. Performed By: #### 3 0934-4 ####FLORINDA Monroe ([id number])[facility] ([facility])[id number] [place] [address] 18574 Renal function 2000 panelon 06-19-2024 Albumin BCP dye [Mass/Vol] 2.9 g/dL Low 3.4-5.0 [facility] Comment on above: Performed By: #### 2 4362-6 ####FLORINDA Monroe ([id number])[facility] ([facility])[address] [place] [address] Anion gap [Moles/Vol] 11 mmol/L Normal 10-20 [facility] Comment on above: Performed By: #### 2 4362-6 ####FLORINDA Monroe ([id number])[facility] ([facility])[address] [place] [address] Calcium [Mass/Vol] 9.1 mg/dL Normal 8.6-10.6 [facility] Comment on above: Performed By: #### 2 4362-6 ####FLORINDA Mornoe ([id number])[facility] ([facility])[address] [place] [address] Chloride [Moles/Vol] 101 mmol/L Normal 98-107 [facility] Comment on above: Performed By: #### 2 4362-6 ####FLORINDA HYDEMOTZER L ([id number])[facility] ([facility])[address] [place] [address] CO2 [Moles/Vol] 33 mmol/L High 21-32 [facility] Comment on above: Performed By: #### 2 4362-6 ####FLORINDA TARANGO L ([id number])[facility] ([facility])[address] [place] [address] Creatinine [Mass/Vol] 2.00 mg/dL High 0.50-1.30 [facility] Comment on above: Performed By: #### 2 4362-6 ####FLORINDA TARANGO L ([id number])[facility] ([facility])[address] [place] [address] Glomerular filtration rate/1.73 sq M.predicted 39 mL/min/1.73m*2 Low >60 [facility] Comment on above: Result Comment: Calc ulations of estimated GFR are performed using the 2020 CKD-EPI Study Refit equation without the race variable for the IDMS-Traceable creatinine methods.https://jasn.asnjournals.org/content/early//ASN. 1147641519 Performed By: #### 2 4362-6 ####FLORINDA TARANGO L ([id number])[facility] ([facility])[address] [place] [address] Glucose [Mass/Vol] 126 mg/dL High 74-99 [facility] Comment on above: Performed By: #### 2 4362-6 ####FLORINDA TARANGO L ([id number])[facility] ([facility])[address] [place] [address] Phosphate [Mass/Vol] 3.2 mg/dL Normal 2.5-4.9 [facility] Comment on above: Result Comment: The performance characteristics of phosphorus testing in heparinized plasma have been validated by the individual laboratory site where testing is performed. Testing on heparinized plasma is not approved by the FDA; however, such approval is not necessary. Performed By: #### 2 4362-6 ####FLORINDA Monroe ([id number])[facility] ([facility])[address] [place] [address] Potassium [Moles/Vol] 3.5 mmol/L Normal 3.5-5.3 [facility] Comment on above: Performed By: #### 2 4362-6 ####FLORINDA Monroe ([id number])[facility] ([facility])[address] [place] [address] Sodium [Moles/Vol] 141 mmol/L Normal 136-145 [facility] Comment on above: Performed By: #### 2 4362-6 ####FLORINDA Monroe ([id number])[facility] ([facility])[address] [place] [address] Urea nitrogen [Mass/Vol] 52 mg/dL High 6-23 [facility] Comment on above: Performed By: #### 2 4362-6 ####FLORINDA Monroe ([id number])[facility] ([facility])[address] [place] [address] Albumin BCP dye [Mass/Vol] 2.7 g/dL Low 3.4-5.0 [facility] Comment on above: Performed By: #### 2 4362-6 ####FLORINDA Monroe ([id number])[facility] ([facility])[address] [place] [address] Anion gap [Moles/Vol] 15 mmol/L Normal 10-20 [facility] Comment on above: Performed By: #### 2 4362-6 ####FLORINDA Monroe ([id number])[facility] ([facility])[address] [place] [address] Calcium [Mass/Vol] 8.9 mg/dL Normal 8.6-10.6 [facility] Comment on above: Performed By: #### 2 4362-6 ####FLORINDA Monroe ([id number])[facility] ([facility])[address] [place] [address] Chloride [Moles/Vol] 102 mmol/L Normal 98-107 [facility] Comment on above: Performed By: #### 2 4362-6 ####FLORINDA Monroe ([id number])[facility] ([facility])[address] [place] [address] CO2 [Moles/Vol] 29 mmol/L Normal 21-32 [facility] Comment on above: Performed By: #### 2 4362-6 ####FLORINDA Monroe ([id number])[facility] ([facility])[address] [place] [address] Creatinine [Mass/Vol] 2.05 mg/dL High 0.50-1.30 [facility] Comment on above: Performed By: #### 2 4362-6 ####FLORINDA Monroe ([id number])[facility] ([facility])[address] [place] [address] Glomerular filtration rate/1.73 sq M.predicted 38 mL/min/1.73m*2 Low >60 [facility] Comment on above: Result Comment: Calc ulations of estimated GFR are performed using the 2020 CKD-EPI Study Refit equation without the race variable for the IDMS-Traceable creatinine methods.https://jasn.asnjournals.org/content//ASN. 9009710108 Performed By: #### 2 4362-6 ####FLORINDA Monroe ([id number])[facility] ([facility])[address] [place] [address] Glucose [Mass/Vol] 97 mg/dL Normal 74-99 [facility] Comment on above: Performed By: #### 2 4362-6 ####FLORINDA Monroe ([id number])[facility] ([facility])[address] [place] [address] Phosphate [Mass/Vol] 3.0 mg/dL Normal 2.5-4.9 [facility] Comment on above: Result Comment: MILD HEMOLYSIS DETECTED. The result may be falsely elevated due to hemolysis or other interferents. Clinical correlation is recommended. Repeat testing may be considered.The performance characteristics of phosphorus testing in heparinized plasma have been validated by the individual laboratory site where testing is performed. Testing on heparinized plasma is not approved by the FDA; however, such approval is not necessary. Performed By: #### 2 4362-6 ####FLORINDA Monroe ([id number])[facility] ([facility])[address] [place] [address] Potassium [Moles/Vol] 4.5 mmol/L Normal 3.5-5.3 [facility] Comment on above: Result Comment: MILD HEMOLYSIS DETECTED. The result may be falsely elevated due to hemolysis or other interferents. Clinical correlation is recommended. Repeat testing may be considered. Performed By: #### 2 4362-6 ####FLORINDA Monroe ([id number])[facility] ([facility])[address] [place] [address] Sodium [Moles/Vol] 141 mmol/L Normal 136-145 [facility] Comment on above: Performed By: #### 2 4362-6 ####FLORINDA Monroe ([id number])[facility] ([facility])[address] [place] [address] Urea nitrogen [Mass/Vol] 53 mg/dL High 6-23 [facility] Comment on above: Performed By: #### 2 4362-6 ####FLORINDA Monroe ([id number])[facility] ([facility])[address] [place] [address] 68304 Tacrolimuson 06-19-2024 Tacrolimus (Bld) [Mass/Vol] 7.0 ng/mL Normal <=15.0 [facility] Comment on above: Order Comment: NOTE: Result was obtained using achemiluminescent microparticle immunoassay(CMIA) on the [employer] Developer i system.Optimal therapeutic ranges for immunosuppressantdrugs depend upon an individualpatient's current clinical state, type oforgan transplant, time post-transplant,co-administration of other immunosuppressants,and other clinical factors. The results ofthis test should be correlated with additionalclinical and laboratory data before changesin treatment regimens are made. Performed By: #### 1 1253-2 ####FLORINDA Monroe ([id number])[facility] ([facility])[address] [place] [address] Troponin I.cardiac panelon 0 06-19-2024 Tropinin I.cardiac panel High sensitivity method 9556 ng/L Critically high 0-53 [facility] Comment on above: Order Comment: Less than 99th percentile of normal range cutoff-Female and children under 18 years old <35 ng/L; Male <54 ng/L: NegativeRepeat testing should be performed if clinically indicated.Female and children under 18 years old 35-120 ng/L; Male 54-120 ng/L:Consistent with possible cardiac damage and possible increased clinicalrisk. Serial measurements may help to assess extent of myocardial damage.>120 ng/L: Consistent with cardiac damage, increased clinical risk andmyocardial infarction. Serial measurements may help assess extent ofmyocardial damage.NOTE: Children less than 1 year old may have higher baseline troponinlevels and results should be interpreted in conjunction with the overallclinical context.NOTE: Troponin I testing is performed using a differenttesting methodology at [facility] than at [facility]. Direct result comparisons should onlybe made within the same method. Performed By: #### 8 9577-1 ####FLORINDA Monroe ([id number])[facility] ([facility])[address] [place] [address] Vancomycinon 06-19-2024 Vancomycin [Mass/Vol] 17.5 ug/mL Normal 5.0-20.0 [facility] Comment on above: Order Comment: Vanco mycin levels can be monitored according to area under the curve (AUC) or concentration (ug/mL). The preferred monitoring strategy is determined by the patient's renal function and indication for therapy.For AUC monitoring, a random vancomycin level should be interpreted in the context of AUC rather than the concentration at a single point in time.For concentration monitoring, a trough concentration drawn immediately prior to the next dose is preferred.Therapeutic ranges using concentration-guided results:Peak (all ages): 30.0-40.0 ug/mLTrough (all ages): 10.0-20.0 ug/mL Performed By: #### 2 0578-1 ####FLORINDA Monroe ([id number])[facility] ([facility])[address] [place] [address] XR CHEST 1 VIEWon 06-19-2024 XR CHEST 1 VIEW Normal [facility] BB ORDER ONLY - ANTIBODY JENA NTIFICATIONon 06-18-2024 Blood group antibody investigation (P/RBC) [Interp] Anti-D [facility] Comment on above: Performed By: #### A BID ####FLORINDA Monroe ([id number])[facility] ([facility])[address] [place] [address] CASE # [id number] [facility] Comment on above: Performed By: #### A BID ####FLORINDA Monroe ([id number])[facility] ([facility])[address] [place] [address] Blood type and Indirect anti body screen panel (Bld)on 06-18-2024 ABO group Nom (Bld) O [facility] Comment on above: Performed By: #### 3 4532-2 ####FLORINDA Monroe ([id number])[facility] ([facility])[address] [place] [address] Blood group antibody screen Ql Positive [facility] Comment on above: Performed By: #### 3 4532-2 ####FLORINDA Monroe ([id number])[facility] ([facility])[address] [place] [facility] [place] [address] D Ag Ql (Bld) Negative [facility] Comment on above: Performed By: #### 3 4532-2 ####FLORINDA Monroe ([id number])[facility] ([facility])[address] [place] [address] CBC W Auto Differential pane l (Bld)on 06-18-2024 Basophils (Bld) [#/Vol] 0.01 x10*3/uL Normal 0.00-0.10 [facility] Comment on above: Performed By: #### 5 7021-8 ####FLORINDA TARANGO L ([id number])[facility] ([facility])[address] [place] [address] Basophils/100 WBC (Bld) 0.2 % Normal 0.0-2.0 [facility] Comment on above: Performed By: #### 5 7021-8 ####FLORINDA Monroe ([id number])[facility] ([facility])[address] [place] [address] Eosinophils (Bld) [#/Vol] 0.07 x10*3/uL Normal 0.00-0.70 [facility] Comment on above: Performed By: #### 5 7021-8 ####FLORINDA TARANGO L ([id number])[facility] ([facility])[address] [place] [address] Eosinophils/100 WBC (Bld) 1.6 % Normal 0.0-6.0 [facility] Comment on above: Performed By: #### 5 7021-8 ####FLORINDA TARANGO L ([id number])[facility] ([facility])[address] [place] [address] Erythrocyte distribution width (RBC) [Ratio] 15.7 % High 11.5-14.5 [facility] Comment on above: Performed By: #### 5 7021-8 ####FLORINDA TARANGO L ([id number])[facility] ([facility])[address] [place] [address] Hematocrit (Bld) [Volume fraction] 23.0 % Low 41.0-52.0 [facility] Comment on above: Performed By: #### 5 7021-8 ####FLORINDA TARANGO L ([id number])[facility] ([facility])[address] [place] [address] Hemoglobin (Bld) [Mass/Vol] 7.3 g/dL Low 13.5-17.5 [facility] Comment on above: Performed By: #### 5 7021-8 ####FLORINDA Monroe ([id number])[facility] ([facility])[address] [place] [address] Immature granulocytes (Bld) [#/Vol] 0.02 x10*3/uL Normal 0.00-0.70 [facility] Comment on above: Performed By: #### 5 7021-8 ####FLORINDA Monroe ([id number])[facility] ([facility])[address] [place] [address] Immature granulocytes/100 WBC (Bld) 0.5 % Normal 0.0-0.9 [facility] Comment on above: Result Comment: Nathaly ture Granulocyte Count (IG) includes promyelocytes, myelocytes and metamyelocytes but does not include bands. Percent differential counts (%) should be interpreted in the context of the absolute cell counts (cells/UL). Performed By: #### 5 7021-8 ####FLORINDA Monroe ([id number])[facility] ([facility])[address] [place] [address] Lymphocytes (Bld) [#/Vol] 0.41 x10*3/uL Low 1.20-4.80 [facility] Comment on above: Performed By: #### 5 7021-8 ####FLORINDA Monroe ([id number])[facility] ([facility])[address] [place] [address] Lymphocytes/100 WBC (Bld) 9.5 % Normal 13.0-44.0 [facility] Comment on above: Performed By: #### 5 7021-8 ####FLORINDA Monroe ([id number])[facility] ([facility])[address] [place] [address] MCH (RBC) [Entitic mass] 28.7 pg Normal 26.0-34.0 [facility] Comment on above: Performed By: #### 5 7021-8 ####FLORINDA TARANGO L ([id number])[facility] ([facility])[address] [place] [address] MCHC (RBC) [Mass/Vol] 31.7 g/dL Low 32.0-36.0 [facility] Comment on above: Performed By: #### 5 7021-8 ####FLORINDA HYDEMOPRIETO L ([id number])[facility] ([facility])[address] [place] [address] MCV (RBC) [Entitic vol] 91 fL Normal 80-100 [facility] Comment on above: Performed By: #### 5 7021-8 ####FLORINDA TARANGO L ([id number])[facility] ([facility])[address] [place] [address] Monocytes (Bld) [#/Vol] 0.53 x10*3/uL Normal 0.10-1.00 [facility] Comment on above: Performed By: #### 5 7021-8 ####FLORINDA TARANGO L ([id number])[facility] ([facility])[address] [place] [address] Monocytes/100 WBC (Bld) 12.2 % Normal 2.0-10.0 [facility] Comment on above: Performed By: #### 5 7021-8 ####FLORINDA HYDEMOPRIETO L ([id number])[facility] ([facility])[address] [place] [address] Neutrophils (Bld) [#/Vol] 3.29 x10*3/uL Normal 1.20-7.70 [facility] Comment on above: Result Comment: Perc ent differential counts (%) should be interpreted in the context of the absolute cell counts (cells/uL). Performed By: #### 5 7021-8 ####FLORINDA HYDEMOTZEMA L ([id number])[facility] ([facility])[address] [place] [address] Neutrophils/100 WBC (Bld) 76.0 % Normal 40.0-80.0 [facility] Comment on above: Performed By: #### 5 7021-8 ####FLORINDA Monroe ([id number])[facility] ([facility])[address] [place] [address] Nucleated RBC/100 WBC (Bld) [Ratio] 0.0 /100 WBCs Normal 0.0-0.0 [facility] Comment on above: Performed By: #### 5 7021-8 ####FLORINDA Monroe ([id number])[facility] ([facility])[address] [place] [address] Platelets (Bld) [#/Vol] 80 x10*3/uL Low 150-450 [facility] Comment on above: Performed By: #### 5 7021-8 ####FLORINDA Monroe ([id number])[facility] ([facility])[address] [place] [address] RBC (Bld) [#/Vol] 2.54 x10*6/uL Low 4.50-5.90 [facility] Comment on above: Performed By: #### 5 7021-8 ####FLORINDA Monroe ([id number])[facility] ([facility])[address] [place] [address] WBC (Bld) [#/Vol] 4.3 x10*3/uL Low 4.4-11.3 [facility] Comment on above: Performed By: #### 5 7021-8 ####FLORINDA Monroe ([id number])[facility] ([facility])[address] [place] [address] Basophils (Bld) [#/Vol] 0.01 x10*3/uL Normal 0.00-0.10 [facility] Comment on above: Performed By: #### 5 7021-8 ####FLORINDA Monroe ([id number])[facility] ([facility])[address] [place] [address] Basophils/100 WBC (Bld) 0.2 % Normal 0.0-2.0 [facility] Comment on above: Performed By: #### 5 7021-8 ####FLORINDA Monroe ([id number])[facility] ([facility])[address] [place] [address] Eosinophils (Bld) [#/Vol] 0.18 x10*3/uL Normal 0.00-0.70 [facility] Comment on above: Performed By: #### 5 7021-8 ####FLORINDA Monroe ([id number])[facility] ([facility])[address] [place] [address] Eosinophils/100 WBC (Bld) 3.7 % Normal 0.0-6.0 [facility] Comment on above: Performed By: #### 5 7021-8 ####FLORINDA Monroe ([id number])[facility] ([facility])[address] [place] [address] Erythrocyte distribution width (RBC) [Ratio] 15.9 % High 11.5-14.5 [facility] Comment on above: Performed By: #### 5 7021-8 ####FLORINDA Monroe ([id number])[facility] ([facility])[address] [place] [address] Hematocrit (Bld) [Volume fraction] 24.1 % Low 41.0-52.0 [facility] Comment on above: Performed By: #### 5 7021-8 ####FLORINDA Monroe ([id number])[facility] ([facility])[address] [place] [address] Hemoglobin (Bld) [Mass/Vol] 7.5 g/dL Low 13.5-17.5 [facility] Comment on above: Performed By: #### 5 7021-8 ####FLORINDA Monroe ([id number])[facility] ([facility])[address] [place] [address] 140[address] Immature granulocytes (Bld) [#/Vol] 0.02 x10*3/uL Normal 0.00-0.70 [facility] Comment on above: Performed By: #### 5 7021-8 ####FLORINDA Monroe ([id number])[facility] ([facility])[address] [place] [address] Immature granulocytes/100 WBC (Bld) 0.4 % Normal 0.0-0.9 [facility] Comment on above: Result Comment: Nathaly ture Granulocyte Count (IG) includes promyelocytes, myelocytes and metamyelocytes but does not include bands. Percent differential counts (%) should be interpreted in the context of the absolute cell counts (cells/UL). Performed By: #### 5 7021-8 ####FLORINDA Monroe ([id number])[facility] ([facility])[address] [place] [address] Lymphocytes (Bld) [#/Vol] 0.89 x10*3/uL Low 1.20-4.80 [facility] Comment on above: Performed By: #### 5 7021-8 ####FLORINDA Monroe ([id number])[facility] ([facility])[address] [place] [address] Lymphocytes/100 WBC (Bld) 18.1 % Normal 13.0-44.0 [facility] Comment on above: Performed By: #### 5 7021-8 ####FLORINDA Monroe ([id number])[facility] ([facility])[address] [place] [address] MCH (RBC) [Entitic mass] 28.4 pg Normal 26.0-34.0 [facility] Comment on above: Performed By: #### 5 7021-8 ####FLORINDA Monroe ([id number])[facility] ([facility])[address] [place] [address] MCHC (RBC) [Mass/Vol] 31.1 g/dL Low 32.0-36.0 [facility] Comment on above: Performed By: #### 5 7021-8 ####FLORINDA Monroe ([id number])[facility] ([facility])[address] [place] [address] MCV (RBC) [Entitic vol] 91 fL Normal 80-100 [facility] Comment on above: Performed By: #### 5 7021-8 ####FLORINDA Monroe ([id number])[facility] ([facility])[address] [place] [address] Monocytes (Bld) [#/Vol] 0.79 x10*3/uL Normal 0.10-1.00 [facility] Comment on above: Performed By: #### 5 7021-8 ####FLORINDA Monroe ([id number])[facility] ([facility])[address] [place] [address] Monocytes/100 WBC (Bld) 16.1 % Normal 2.0-10.0 [facility] Comment on above: Performed By: #### 5 7021-8 ####FLORINDA Monroe ([id number])[facility] ([facility])[address] [place] [address] Neutrophils (Bld) [#/Vol] 3.03 x10*3/uL Normal 1.20-7.70 [facility] Comment on above: Result Comment: Perc ent differential counts (%) should be interpreted in the context of the absolute cell counts (cells/uL). Performed By: #### 5 7021-8 ####FLORINDA Monroe ([id number])[facility] ([facility])[address] [place] [address] Neutrophils/100 WBC (Bld) 61.5 % Normal 40.0-80.0 [facility] Comment on above: Performed By: #### 5 7021-8 ####FLORINDA Monroe ([id number])[facility] ([facility])[address] [place] [address] Nucleated RBC/100 WBC (Bld) [Ratio] 0.0 /100 WBCs Normal 0.0-0.0 [facility] Comment on above: Performed By: #### 5 7021-8 ####FLORINDA Monroe ([id number])[facility] ([facility])[address] [place] [address] Platelets (Bld) [#/Vol] 76 x10*3/uL Low 150-450 [facility] Comment on above: Performed By: #### 5 7021-8 ####FLORINDA Monroe ([id number])[facility] ([facility])[address] [place] [address] RBC (Bld) [#/Vol] 2.64 x10*6/uL Low 4.50-5.90 [facility] Comment on above: Performed By: #### 5 7021-8 ####FLORINDA ROSEER L ([id number])[facility] ([facility])[address] [place] [address] WBC (Bld) [#/Vol] 4.9 x10*3/uL Normal 4.4-11.3 [facility] Comment on above: Performed By: #### 5 7021-8 ####FLORINDA WESTONTZER L ([id number])[facility] ([facility])[address] [place] [address] ECG 12-LEADon 06-18-2024 ECG 12-LEAD Ventricular Rate 90 Atrial Rate 90 P-R Interval 146 QRS Duration 156 Q-T Interval 390 QTC Calculation(Bazett) 477 P Afton -3 R Afton -84 T Afton 45 QRS Count 15 Q Onset 218 P Onset 145 P Offset 200 T Offset 413 QTC Fredericia 446 Diagnosis Normal sinus rhythm with sinus arrhythmia Right bundle branch block Left anterior fascicular block Bifascicular block Abnormal ECG When compared with ECG of 14-JUN-2024 22:38, No significant change was found Confirmed by Chandu Kelly ([id number]) on 06/23/2024 10:10:57 AM Normal [facility] Heparin.unfractionatedon Heparin unfractionated Chromogenic method Qn (PPP) 0.4 IU/mL Normal See Comment Below for Therapeutic Ranges [facility] Comment on above: Order Comment: Obtai n 4 hours after any Heparin dosage change. Nursing to release order.The therapeutic reference range for UFH may be either 0.3-0.6 IU/mL or 0.3-0.7 IU/mL based on the clinical setting for anticoagulant therapy and the associated nomogram used. For Heparin dosing guidelines based on clinical scenario and Heparin Assay results, please refer to local Pharmacy and the [facility] Guidelines for Anticoagulation Therapy available on the [facility] intranet at: [email or web address]/[email or web address]_Guidelines_for_Anticoagu.aspx Performed By: #### 3 274-8 ####FLORINDA Monroe ([id number])[facility] ([facility])[address] [place] [address] Magnesiumon 06-18-2024 Magnesium [Mass/Vol] 2.03 mg/dL Normal 1.60-2.40 [facility] Comment on above: Performed By: #### 1 9123-9 ####FLORINDA Monroe ([id number])[facility] ([facility])[address] [place] [address] PATH REVIEW-IMMUNOHEMATOLOGY on 06-18-2024 PATH REV-IMMUNOHEMATOLOG Y-PR30 SEE COMMENT Normal [facility] Comment on above: Result Comment: ANTI BODY DETECTION SCREEN IS POSITIVE. ANTIBODY PANEL WAS PERFORMED. THE AUTOCONTROL IS NEGATIVE. PREVIOUSLY IDENTIFIED ALLOANTIBODY ANTI-D IS REACTING. ALL OTHER COMMON CLINICALLY SIGNIFICANT ALLOANTIBODIES HAVE BEEN RULED OUT. FULL CROSSMATCHED RH(D)-ANTIGEN NEGATIVE DONOR RBC UNITS SHOULD BE SELECTED FOR TRANSFUSION FOR THIS PATIENT. Performed By: #### P R30 ####FLORINDA Monroe ([id number])[facility] ([facility])[address] [place] [address] Renal function 2000 panelon 06-18-2024 Albumin BCP dye [Mass/Vol] 2.9 g/dL Low 3.4-5.0 [facility] Comment on above: Performed By: #### 2 4362-6 ####FLORINDA Monroe ([id number])[facility] ([facility])[address] [place] [address] Anion gap [Moles/Vol] 13 mmol/L Normal 10-20 [facility] Comment on above: Performed By: #### 2 4362-6 ####FLORINDA Monroe ([id number])[facility] ([facility])[address] [place] [address] Calcium [Mass/Vol] 9.0 mg/dL Normal 8.6-10.6 [facility] Comment on above: Performed By: #### 2 4362-6 ####FLORINDA Monroe ([id number])[facility] ([facility])[address] [place] [address] Chloride [Moles/Vol] 103 mmol/L Normal 98-107 [facility] Comment on above: Performed By: #### 2 4362-6 ####FLORINDA Monroe ([id number])[facility] ([facility])[address] [place] [address] CO2 [Moles/Vol] 28 mmol/L Normal 21-32 [facility] Comment on above: Performed By: #### 2 4362-6 ####FLORINDA Monroe ([id number])[facility] ([facility])[address] [place] [address] Creatinine [Mass/Vol] 2.81 mg/dL High 0.50-1.30 [facility] Comment on above: Performed By: #### 2 4362-6 ####FLORINDA Monroe ([id number])[facility] ([facility])[address] [place] [address] Glomerular filtration rate/1.73 sq M.predicted 26 mL/min/1.73m*2 Low >60 [facility] Comment on above: Result Comment: Calc ulations of estimated GFR are performed using the 2020 CKD-EPI Study Refit equation without the race variable for the IDMS-Traceable creatinine methods.https://jasn.asnjournals.org/content//ASN. 1435740927 Performed By: #### 2 4362-6 ####FLORINDA Monroe ([id number])[facility] ([facility])[address] [place] [address] Glucose [Mass/Vol] 84 mg/dL Normal 74-99 [facility] Comment on above: Performed By: #### 2 4362-6 ####FLROINDA Monroe ([id number])[facility] ([facility])[address] [place] [address] Phosphate [Mass/Vol] 3.7 mg/dL Normal 2.5-4.9 [facility] Comment on above: Result Comment: The performance characteristics of phosphorus testing in heparinized plasma have been validated by the individual laboratory site where testing is performed. Testing on heparinized plasma is not approved by the FDA; however, such approval is not necessary. Performed By: #### 2 4362-6 ####FLORINDA Monroe ([id number])[facility] ([facility])[address] [place] [address] Potassium [Moles/Vol] 3.7 mmol/L Normal 3.5-5.3 [facility] Comment on above: Performed By: #### 2 4362-6 ####FLORINDA Monroe ([id number])[facility] ([facility])[address] [place] [address] Sodium [Moles/Vol] 140 mmol/L Normal 136-145 [facility] Comment on above: Performed By: #### 2 4362-6 ####FLORINDA Monroe ([id number])[facility] ([facility])[address] [place] [address] Urea nitrogen [Mass/Vol] 58 mg/dL High 6-23 [facility] Comment on above: Performed By: #### 2 4362-6 ####FLORINDA Monroe ([id number])[facility] ([facility])[address] [place] [address] Tacrolimuson 06-18-2024 Tacrolimus (Bld) [Mass/Vol] 7.8 ng/mL Normal <=15.0 [facility] Comment on above: Order Comment: Dante nino draw 30 mins prior to giving tacro doseNOTE: Result was obtained using achemiluminescent microparticle immunoassay(CMIA) on the [employer] i system.Optimal therapeutic ranges for immunosuppressantdrugs depend upon an individualpatient's current clinical state, type oforgan transplant, time post-transplant,co-administration of other immunosuppressants,and other clinical factors. The results ofthis test should be correlated with additionalclinical and laboratory data before changesin treatment regimens are made. Performed By: #### 1 1253-2 ####FLORINDA Monroe ([id number])[facility] ([facility])[address] [place] [address] Vancomycinon 06-18-2024 Vancomycin [Mass/Vol] 18.6 ug/mL Normal 5.0-20.0 [facility] Comment on above: Order Comment: Vanco mycin levels can be monitored according to area under the curve (AUC) or concentration (ug/mL). The preferred monitoring strategy is determined by the patient's renal function and indication for therapy.For AUC monitoring, a random vancomycin level should be interpreted in the context of AUC rather than the concentration at a single point in time.For concentration monitoring, a trough concentration drawn immediately prior to the next dose is preferred.Therapeutic ranges using concentration-guided results:Peak (all ages): 30.0-40.0 ug/mLTrough (all ages): 10.0-20.0 ug/mL Performed By: #### 2 0578-1 ####FLORINDA Monroe ([id number])[facility] ([facility])[address] [place] [address] XR CHEST 1 VIEWon 06-18-2024 XR CHEST 1 VIEW Normal [facility] Bacteria identifiedon 2023 Bacteria identified Cx Nom (Bld) [facility] Comment on above: Performed By: #### 6 00-7 ####FLORINDA Monroe ([id number])[facility] ([facility])[address] [place] [address] Bacteria identified Cx Nom (Bld) [facility] Comment on above: Performed By: #### 6 00-7 ####FLORINDA Monroe ([id number])[facility] ([facility])[address] [place] [address] CBC W Auto Differential pane l (Bld)on 06-17-2024 Basophils (Bld) [#/Vol] 0.01 x10*3/uL Normal 0.00-0.10 [facility] Comment on above: Performed By: #### 5 7021-8 ####FLORINDA Monroe ([id number])[facility] ([facility])[address] [place] [address] Basophils/100 WBC (Bld) 0.1 % Normal 0.0-2.0 [facility] Comment on above: Performed By: #### 5 7021-8 ####FLORINDA Monroe ([id number])[facility] ([facility])[address] [place] [address] Eosinophils (Bld) [#/Vol] 0.06 x10*3/uL Normal 0.00-0.70 [facility] Comment on above: Performed By: #### 5 7021-8 ####FLORINDA Monroe ([id number])[facility] ([facility])[address] [place] [address] Eosinophils/100 WBC (Bld) 0.7 % Normal 0.0-6.0 [facility] Comment on above: Performed By: #### 5 7021-8 ####FLORINDA Monroe ([id number])[facility] ([facility])[address] [place] [address] Erythrocyte distribution width (RBC) [Ratio] 16.3 % High 11.5-14.5 [facility] Comment on above: Performed By: #### 5 7021-8 ####FLORINDA Monroe ([id number])[facility] ([facility])[address] [place] [address] Hematocrit (Bld) [Volume fraction] 24.2 % Low 41.0-52.0 [facility] Comment on above: Performed By: #### 5 7021-8 ####FLORINDA Monroe ([id number])[facility] ([facility])[address] [place] [address] Hemoglobin (Bld) [Mass/Vol] 7.7 g/dL Low 13.5-17.5 [facility] Comment on above: Performed By: #### 5 7021-8 ####FLORINDA ROSEER L ([id number])[facility] ([facility])[address] [place] [address] Immature granulocytes (Bld) [#/Vol] 0.04 x10*3/uL Normal 0.00-0.70 [facility] Comment on above: Performed By: #### 5 7021-8 ####FLORINDA HYDEMOTZEMA L ([id number])[facility] ([facility])[address] [place] [address] Immature granulocytes/100 WBC (Bld) 0.5 % Normal 0.0-0.9 [facility] Comment on above: Result Comment: Nathaly ture Granulocyte Count (IG) includes promyelocytes, myelocytes and metamyelocytes but does not include bands. Percent differential counts (%) should be interpreted in the context of the absolute cell counts (cells/UL). Performed By: #### 5 7021-8 ####FLORINDA TARANGO L ([id number])[facility] ([facility])[address] [place] [address] Lymphocytes (Bld) [#/Vol] 0.45 x10*3/uL Low 1.20-4.80 [facility] Comment on above: Performed By: #### 5 7021-8 ####FLORINDA TARANGO L ([id number])[facility] ([facility])[address] [place] [address] Lymphocytes/100 WBC (Bld) 5.4 % Normal 13.0-44.0 [facility] Comment on above: Performed By: #### 5 7021-8 ####FLORINDA HYDEMOPRIETO L ([id number])[facility] ([facility])[address] [place] [address] MCH (RBC) [Entitic mass] 29.2 pg Normal 26.0-34.0 [facility] Comment on above: Performed By: #### 5 7021-8 ####FLORINDA TARANGO L ([id number])[facility] ([facility])[address] [place] [address] MCHC (RBC) [Mass/Vol] 31.8 g/dL Low 32.0-36.0 [facility] Comment on above: Performed By: #### 5 7021-8 ####FLORINDA Monroe ([id number])[facility] ([facility])[address] [place] [address] MCV (RBC) [Entitic vol] 92 fL Normal 80-100 [facility] Comment on above: Performed By: #### 5 7021-8 ####FLORINDA TARANGO L ([id number])[facility] ([facility])[address] [place] [address] Monocytes (Bld) [#/Vol] 0.62 x10*3/uL Normal 0.10-1.00 [facility] Comment on above: Performed By: #### 5 7021-8 ####FLORINDA Monroe ([id number])[facility] ([facility])[address] [place] [address] Monocytes/100 WBC (Bld) 7.4 % Normal 2.0-10.0 [facility] Comment on above: Performed By: #### 5 7021-8 ####FLORINDA Monroe ([id number])[facility] ([facility])[address] [place] [address] Neutrophils (Bld) [#/Vol] 7.17 x10*3/uL Normal 1.20-7.70 [facility] Comment on above: Result Comment: Perc ent differential counts (%) should be interpreted in the context of the absolute cell counts (cells/uL). Performed By: #### 5 7021-8 ####FLORINDA WESTONTZEMA L ([id number])[facility] ([facility])[address] [place] [address] Neutrophils/100 WBC (Bld) 85.9 % Normal 40.0-80.0 [facility] Comment on above: Performed By: #### 5 7021-8 ####FLORINDA Monroe ([id number])[facility] ([facility])[address] [place] [address] Nucleated RBC/100 WBC (Bld) [Ratio] 0.0 /100 WBCs Normal 0.0-0.0 [facility] Comment on above: Performed By: #### 5 7021-8 ####FLORINDA Monroe ([id number])[facility] ([facility])[address] [place] [address] Platelets (Bld) [#/Vol] 82 x10*3/uL Low 150-450 [facility] Comment on above: Performed By: #### 5 7021-8 ####FLORINDA Monroe ([id number])[facility] ([facility])[address] [place] [address] RBC (Bld) [#/Vol] 2.64 x10*6/uL Low 4.50-5.90 [facility] Comment on above: Performed By: #### 5 7021-8 ####FLORINDA Monroe ([id number])[facility] ([facility])[address] [place] [address] WBC (Bld) [#/Vol] 8.4 x10*3/uL Normal 4.4-11.3 [facility] Comment on above: Performed By: #### 5 7021-8 ####FLORINDA Monroe ([id number])[facility] ([facility])[address] [place] [address] Heparin.unfractionatedon Heparin unfractionated Chromogenic method Qn (PPP) 0.5 IU/mL Normal See Comment Below for Therapeutic Ranges [facility] Comment on above: Order Comment: Obtai n 4 hours after any Heparin dosage change. Nursing to release order.The therapeutic reference range for UFH may be either 0.3-0.6 IU/mL or 0.3-0.7 IU/mL based on the clinical setting for anticoagulant therapy and the associated nomogram used. For Heparin dosing guidelines based on clinical scenario and Heparin Assay results, please refer to local Pharmacy and the [facility] Guidelines for Anticoagulation Therapy available on the [facility] intranet at: [email or web address] itals_Guidelines_for_Anticoagu.aspx Performed By: #### 3 274-8 ####FLORINDA Monroe ([id number])[facility] ([facility])[address] [place] [address] Heparin unfractionated Chromogenic method Qn (PPP) 0.5 IU/mL Normal See Comment Below for Therapeutic Ranges [facility] Comment on above: Order Comment: Obtai n 4 hours after any Heparin dosage change. Nursing to release order.The therapeutic reference range for UFH may be either 0.3-0.6 IU/mL or 0.3-0.7 IU/mL based on the clinical setting for anticoagulant therapy and the associated nomogram used. For Heparin dosing guidelines based on clinical scenario and Heparin Assay results, please refer to local Pharmacy and the [facility] Guidelines for Anticoagulation Therapy available on the [facility] intranet at: [email or web address]/Pages/[facility] itals_Guidelines_for_Anticoagu.aspx Performed By: #### 3 274-8 ####FLORINDA Monroe ([id number])[facility] ([facility])[address] [place] [address] Heparin unfractionated Chromogenic method Qn (PPP) 0.7 IU/mL Normal See Comment Below for Therapeutic Ranges [facility] Comment on above: Order Comment: Obtai n 4 hours after any Heparin dosage change. Nursing to release order.The therapeutic reference range for UFH may be either 0.3-0.6 IU/mL or 0.3-0.7 IU/mL based on the clinical setting for anticoagulant therapy and the associated nomogram used. For Heparin dosing guidelines based on clinical scenario and Heparin Assay results, please refer to local Pharmacy and the [facility] Guidelines for Anticoagulation Therapy available on the [facility] intranet at: [email or web address]/Pages/[place] itals_Guidelines_for_Anticoagu.aspx Performed By: #### 3 274-8 ####FLORINDA Monroe ([id number])[facility] ([facility])[address] [place] [address] Heparin unfractionated Chromogenic method Qn (PPP) 0.9 IU/mL Normal See Comment Below for Therapeutic Ranges [facility] Comment on above: Order Comment: Obtai n 4 hours after any Heparin dosage change. Nursing to release order.The therapeutic reference range for UFH may be either 0.3-0.6 IU/mL or 0.3-0.7 IU/mL based on the clinical setting for anticoagulant therapy and the associated nomogram used. For Heparin dosing guidelines based on clinical scenario and Heparin Assay results, please refer to local Pharmacy and the [facility] Guidelines for Anticoagulation Therapy available on the [facility] intranet at: [email or web address]_Guidelines_for_Anticoagu.aspx Performed By: #### 3 274-8 ####FLORINDA Monroe ([id number])[facility] ([facility])[address] [place] [address] Magnesiumon 06-17-2024 Magnesium [Mass/Vol] 1.94 mg/dL Normal 1.60-2.40 [facility] Comment on above: Performed By: #### 1 9123-9 ####FLORINDA Monroe ([id number])[facility] ([facility])[address] [place] [address] Renal function 2000 panelon 06-17-2024 Albumin BCP dye [Mass/Vol] 2.8 g/dL Low 3.4-5.0 [facility] Comment on above: Performed By: #### 2 4362-6 ####FLORINDA Monroe ([id number])[facility] ([facility])[address] [place] [address] Anion gap [Moles/Vol] 15 mmol/L Normal 10-20 [facility] Comment on above: Performed By: #### 2 4362-6 ####FLORINDA Monroe ([id number])[facility] ([facility])[address] [place] [address] Calcium [Mass/Vol] 8.3 mg/dL Low 8.6-10.6 [facility] Comment on above: Performed By: #### 2 4362-6 ####FLORINDA Monroe ([id number])[facility] ([facility])[address] [place] [address] Chloride [Moles/Vol] 101 mmol/L Normal 98-107 [facility] Comment on above: Performed By: #### 2 4362-6 ####FLORINDA TARANGO L ([id number])[facility] ([facility])[address] [place] [address] CO2 [Moles/Vol] 23 mmol/L Normal 21-32 [facility] Comment on above: Performed By: #### 2 4362-6 ####FLORINDA Monroe ([id number])[facility] ([facility])[address] [place] [address] Creatinine [Mass/Vol] 3.34 mg/dL High 0.50-1.30 [facility] Comment on above: Performed By: #### 2 4362-6 ####FLORINDA Monroe ([id number])[facility] ([facility])[address] [place] [address] Glomerular filtration rate/1.73 sq M.predicted 21 mL/min/1.73m*2 Low >60 [facility] Comment on above: Result Comment: Calc ulations of estimated GFR are performed using the 2020 CKD-EPI Study Refit equation without the race variable for the IDMS-Traceable creatinine methods.https://jasn.asnjournals.org/content/early/ASN. 5082190335 Performed By: #### 2 4362-6 ####FLORINDA Monroe ([id number])[facility] ([facility])[address] [place] [address] Glucose [Mass/Vol] 126 mg/dL High 74-99 [facility] Comment on above: Performed By: #### 2 4362-6 ####FLORINDA Monroe ([id number])[facility] ([facility])[address] [place] [address] Phosphate [Mass/Vol] 4.4 mg/dL Normal 2.5-4.9 [facility] Comment on above: Result Comment: The performance characteristics of phosphorus testing in heparinized plasma have been validated by the individual laboratory site where testing is performed. Testing on heparinized plasma is not approved by the FDA; however, such approval is not necessary. Performed By: #### 2 4362-6 ####FLORINDA Monroe ([id number])[facility] ([facility])[address] [place] [address] Potassium [Moles/Vol] 3.8 mmol/L Normal 3.5-5.3 [facility] Comment on above: Performed By: #### 2 4362-6 ####FLORINDA Monroe ([id number])[facility] ([facility])[id number] [place] [address] Sodium [Moles/Vol] 135 mmol/L Low 136-145 [facility] Comment on above: Performed By: #### 2 4362-6 ####FLORINDA Monroe ([id number])[facility] ([facility])[address] [place] [address] Urea nitrogen [Mass/Vol] 56 mg/dL High 6-23 [facility] Comment on above: Performed By: #### 2 4362-6 ####FOLRINDA Monroe ([id number])[facility] ([facility])[id number] [place] [address] Tacrolimuson 06-17-2024 Tacrolimus (Bld) [Mass/Vol] 9.2 ng/mL Normal <=15.0 [facility] Comment on above: Order Comment: PLEAS E GET TACRO LEVEL 30 MINS BEFORE GIVING TACRO PILLNOTE: Result was obtained using achemiluminescent microparticle immunoassay(CMIA) on the [employer] i system.Optimal therapeutic ranges for immunosuppressantdrugs depend upon an individualpatient's current clinical state, type oforgan transplant, time post-transplant,co-administration of other immunosuppressants,and other clinical factors. The results ofthis test should be correlated with additionalclinical and laboratory data before changesin treatment regimens are made. Performed By: #### 1 6504-2 ####FLORINDA Monroe ([id number])[facility] ([facility])[address] [place] [address] Vancomycinon 06-17-2024 Vancomycin [Mass/Vol] 22.5 ug/mL High 5.0-20.0 [facility] Comment on above: Order Comment: Vanco mycin levels can be monitored according to area under the curve (AUC) or concentration (ug/mL). The preferred monitoring strategy is determined by the patient's renal function and indication for therapy.For AUC monitoring, a random vancomycin level should be interpreted in the context of AUC rather than the concentration at a single point in time.For concentration monitoring, a trough concentration drawn immediately prior to the next dose is preferred.Therapeutic ranges using concentration-guided results:Peak (all ages): 30.0-40.0 ug/mLTrough (all ages): 10.0-20.0 ug/mL Performed By: #### 2 0578-1 ####FLORINDA Monroe ([id number])[facility] ([facility])[address] [place] [address] CBC W Auto Differential pane l (Bld)on 06-16-2024 Basophils (Bld) [#/Vol] 0.01 x10*3/uL Normal 0.00-0.10 [facility] Comment on above: Performed By: #### 5 7021-8 ####FLORINDA Monroe ([id number])[facility] ([facility])[address] [place] [address] Basophils/100 WBC (Bld) 0.1 % Normal 0.0-2.0 [facility] Comment on above: Performed By: #### 5 7021-8 ####FLORINDA Monroe ([id number])[facility] ([facility])[address] [place] [address] Eosinophils (Bld) [#/Vol] 0.02 x10*3/uL Normal 0.00-0.70 [facility] Comment on above: Performed By: #### 5 7021-8 ####FLORINDA Monroe ([id number])[facility] ([facility])[address] [place] [address] Eosinophils/100 WBC (Bld) 0.2 % Normal 0.0-6.0 [facility] Comment on above: Performed By: #### 5 7021-8 ####FLORINDA Monroe ([id number])[facility] ([facility])[address] [place] [address] Erythrocyte distribution width (RBC) [Ratio] 16.6 % High 11.5-14.5 [facility] Comment on above: Performed By: #### 5 7021-8 ####FLORINDA Monroe ([id number])[facility] ([facility])[address] [place] [address] Hematocrit (Bld) [Volume fraction] 24.6 % Low 41.0-52.0 [facility] Comment on above: Performed By: #### 5 7021-8 ####FLORINDA Monroe ([id number])[facility] ([facility])[address] [place] [address] Hemoglobin (Bld) [Mass/Vol] 7.9 g/dL Low 13.5-17.5 [facility] Comment on above: Performed By: #### 5 7021-8 ####FLORINDA Monroe ([id number])[facility] ([facility])[id number] [place] [address]20[address] Immature granulocytes (Bld) [#/Vol] 0.07 x10*3/uL Normal 0.00-0.70 [facility] Comment on above: Performed By: #### 5 7021-8 ####FLORINDA Monroe ([id number])[facility] ([facility])[address] [place] [address] Immature granulocytes/100 WBC (Bld) 0.7 % Normal 0.0-0.9 [facility] Comment on above: Result Comment: Nathaly ture Granulocyte Count (IG) includes promyelocytes, myelocytes and metamyelocytes but does not include bands. Percent differential counts (%) should be interpreted in the context of the absolute cell counts (cells/UL). Performed By: #### 5 7021-8 ####FLORINDA Monroe ([id number])[facility] ([facility])[address] [place] [address] Lymphocytes (Bld) [#/Vol] 0.34 x10*3/uL Low 1.20-4.80 [facility] Comment on above: Performed By: #### 5 7021-8 ####FLORINDA Monroe ([id number])[facility] ([facility])[address] [place] [address]687 Lymphocytes/100 WBC (Bld) 3.6 % Normal 13.0-44.0 [facility] Comment on above: Performed By: #### 5 7021-8 ####FLORINDA Monroe ([id number])[facility] ([facility])[address] [place] [address]321 MCH (RBC) [Entitic mass] 28.4 pg Normal 26.0-34.0 [facility] Comment on above: Performed By: #### 5 7021-8 ####FLORINDA Monroe ([id number])[facility] ([facility])[address] [place] [address] MCHC (RBC) [Mass/Vol] 32.1 g/dL Normal 32.0-36.0 [facility] Comment on above: Performed By: #### 5 7021-8 ####FLORINDA Monroe ([id number])[facility] ([facility])[id number] [place] [address]1233 MCV (RBC) [Entitic vol] 89 fL Normal 80-100 [facility] Comment on above: Performed By: #### 5 7021-8 ####FLORINDA Monroe ([id number])[facility] ([facility])[address] [place] [address]5983 Monocytes (Bld) [#/Vol] 0.46 x10*3/uL Normal 0.10-1.00 [facility] Comment on above: Performed By: #### 5 7021-8 ####FLORINDA Monroe ([id number])[facility] ([facility])[address] [place] [address] Monocytes/100 WBC (Bld) 4.8 % Normal 2.0-10.0 [facility] Comment on above: Performed By: #### 5 7021-8 ####FLORINDA Monroe ([id number])[facility] ([facility])[address] [place] [address] Neutrophils (Bld) [#/Vol] 8.65 x10*3/uL High 1.20-7.70 [facility] Comment on above: Result Comment: Perc ent differential counts (%) should be interpreted in the context of the absolute cell counts (cells/uL). Performed By: #### 5 7021-8 ####FLORINDA Monroe ([id number])[facility] ([facility])[address] [place] [address] Neutrophils/100 WBC (Bld) 90.6 % Normal 40.0-80.0 [facility] Comment on above: Performed By: #### 5 7021-8 ####FLORINDA Monroe ([id number])[facility] ([facility])[address] [place] [address] Nucleated RBC/100 WBC (Bld) [Ratio] 0.0 /100 WBCs Normal 0.0-0.0 [facility] Comment on above: Performed By: #### 5 7021-8 ####FLORINDA Monroe ([id number])[facility] ([facility])[address] [place] [address] Platelets (Bld) [#/Vol] 74 x10*3/uL Low 150-450 [facility] Comment on above: Performed By: #### 5 7021-8 ####FLORINDA Monroe ([id number])[facility] ([facility])[address] [place] [address] RBC (Bld) [#/Vol] 2.78 x10*6/uL Low 4.50-5.90 [facility] Comment on above: Performed By: #### 5 7021-8 ####FLORINDA Monroe ([id number])[facility] ([facility])[address] [place] [address] WBC (Bld) [#/Vol] 9.6 x10*3/uL Normal 4.4-11.3 [facility] Comment on above: Performed By: #### 5 7021-8 ####FLORINDA Monroe ([id number])[facility] ([facility])[address] [place] [address] Basophils (Bld) [#/Vol] 0.01 x10*3/uL Normal 0.00-0.10 [facility] Comment on above: Performed By: #### 5 7021-8 ####FLORINDA Monroe ([id number])[facility] ([facility])[address] [place] [address] Basophils/100 WBC (Bld) 0.1 % Normal 0.0-2.0 [facility] Comment on above: Performed By: #### 5 7021-8 ####FLORINDA Monroe ([id number])[facility] ([facility])[address] [place] [address] Eosinophils (Bld) [#/Vol] 0.01 x10*3/uL Normal 0.00-0.70 [facility] Comment on above: Performed By: #### 5 7021-8 ####FLORINDA Monroe ([id number])[facility] ([facility])[address] [place] [address] Eosinophils/100 WBC (Bld) 0.1 % Normal 0.0-6.0 [facility] Comment on above: Performed By: #### 5 7021-8 ####FLORINDA Monroe ([id number])[facility] ([facility])[address] [place] [address] Erythrocyte distribution width (RBC) [Ratio] 16.7 % High 11.5-14.5 [facility] Comment on above: Performed By: #### 5 7021-8 ####FLORINDA Monroe ([id number])[facility] ([facility])[address] [place] [address] Hematocrit (Bld) [Volume fraction] 25.5 % Low 41.0-52.0 [facility] Comment on above: Performed By: #### 5 7021-8 ####FLORINDA Monroe ([id number])[facility] ([facility])[address] [place] [address] Hemoglobin (Bld) [Mass/Vol] 7.7 g/dL Low 13.5-17.5 [facility] Comment on above: Performed By: #### 5 7021-8 ####FLORINDA Monroe ([id number])[facility] ([facility])[address] [place] [address] Immature granulocytes (Bld) [#/Vol] 0.14 x10*3/uL Normal 0.00-0.70 [facility] Comment on above: Performed By: #### 5 7021-8 ####FLORINDA Monroe ([id number])[facility] ([facility])[address] [place] [address] Immature granulocytes/100 WBC (Bld) 1.3 % High 0.0-0.9 [facility] Comment on above: Result Comment: Nathaly ture Granulocyte Count (IG) includes promyelocytes, myelocytes and metamyelocytes but does not include bands. Percent differential counts (%) should be interpreted in the context of the absolute cell counts (cells/UL). Performed By: #### 5 7021-8 ####FLORINDA Monroe ([id number])[facility] ([facility])[address] [place] [address] Lymphocytes (Bld) [#/Vol] 0.33 x10*3/uL Low 1.20-4.80 [facility] Comment on above: Performed By: #### 5 7021-8 ####FLORINDA Monroe ([id number])[facility] ([facility])[address] [place] [address] Lymphocytes/100 WBC (Bld) 3.0 % Normal 13.0-44.0 [facility] Comment on above: Performed By: #### 5 7021-8 ####FLORINDA Monroe ([id number])[facility] ([facility])[address] [place] [address] 41692 MCH (RBC) [Entitic mass] 28.0 pg Normal 26.0-34.0 [facility] Comment on above: Performed By: #### 5 7021-8 ####FLORINDA Monroe ([id number])[facility] ([facility])[address] [place] [address]308 MCHC (RBC) [Mass/Vol] 30.2 g/dL Low 32.0-36.0 [facility] Comment on above: Performed By: #### 5 7021-8 ####FLORINDA Monroe ([id number])[facility] ([facility])[address] [place] [address]8873 MCV (RBC) [Entitic vol] 93 fL Normal 80-100 [facility] Comment on above: Performed By: #### 5 7021-8 ####FLORINDA Monroe ([id number])[facility] ([facility])[address] [place] [address] 01775 Monocytes (Bld) [#/Vol] 0.60 x10*3/uL Normal 0.10-1.00 [facility] Comment on above: Performed By: #### 5 7021-8 ####FLORINDA Monroe ([id number])[facility] ([facility])[address] [place] [address] 78173 Monocytes/100 WBC (Bld) 5.5 % Normal 2.0-10.0 [facility] Comment on above: Performed By: #### 5 7021-8 ####FLORINDA Monroe ([id number])[facility] ([facility])[address] [place] [address] 76482 Neutrophils (Bld) [#/Vol] 9.73 x10*3/uL High 1.20-7.70 [facility] Comment on above: Result Comment: Perc ent differential counts (%) should be interpreted in the context of the absolute cell counts (cells/uL). Performed By: #### 5 7021-8 ####FLORINDA Monroe ([id number])[facility] ([facility])[address] [place] [address] Neutrophils/100 WBC (Bld) 90.0 % Normal 40.0-80.0 [facility] Comment on above: Performed By: #### 5 7021-8 ####FLORINDA Monroe ([id number])[facility] ([facility])[address] [place] [address] 84021 Nucleated RBC/100 WBC (Bld) [Ratio] 0.0 /100 WBCs Normal 0.0-0.0 [facility] Comment on above: Performed By: #### 5 7021-8 ####FLORINDA Monroe ([id number])[facility] ([facility])[address] [place] [address] Platelets (Bld) [#/Vol] 77 x10*3/uL Low 150-450 [facility] Comment on above: Performed By: #### 5 7021-8 ####FLORINDA Monroe ([id number])[facility] ([facility])[address] [place] [address] RBC (Bld) [#/Vol] 2.75 x10*6/uL Low 4.50-5.90 [facility] Comment on above: Performed By: #### 5 7021-8 ####FLORINDA Monroe ([id number])[facility] ([facility])[address] [place] [address] WBC (Bld) [#/Vol] 10.8 x10*3/uL Normal 4.4-11.3 [facility] Comment on above: Performed By: #### 5 7021-8 ####FLORINDA TARANGO L ([id number])[facility] ([facility])[address] [place] [address] Heparin.unfractionatedon Heparin unfractionated Chromogenic method Qn (PPP) 0.9 IU/mL Normal See Comment Below for Therapeutic Ranges [facility] Comment on above: Order Comment: Obtai n 4 hours after any Heparin dosage change. Nursing to release order.The therapeutic reference range for UFH may be either 0.3-0.6 IU/mL or 0.3-0.7 IU/mL based on the clinical setting for anticoagulant therapy and the associated nomogram used. For Heparin dosing guidelines based on clinical scenario and Heparin Assay results, please refer to local Pharmacy and the [facility] Guidelines for Anticoagulation Therapy available on the [facility] intranet at: [email or web address] Performed By: #### 3 274-8 ####FLORINDA Monroe ([id number])[facility] ([facility])[address] [place] [address] Heparin unfractionated Chromogenic method Qn (PPP) 1.3 IU/mL Critically high See Comment Below for Therapeutic Ranges [facility] Comment on above: Order Comment: Obtai n 4 hours after initiation of heparin infusion. Nursing to release order.The therapeutic reference range for UFH may be either 0.3-0.6 IU/mL or 0.3-0.7 IU/mL based on the clinical setting for anticoagulant therapy and the associated nomogram used. For Heparin dosing guidelines based on clinical scenario and Heparin Assay results, please refer to local Pharmacy and the [facility] Guidelines for Anticoagulation Therapy available on the [facility] intranet at: [email or web address] Performed By: #### 3 274-8 ####FLORINDA Monroe ([id number])[facility] ([facility])[address] [place] [address] PT and aPTT panel Coag (PPP) on 06-16-2024 aPTT Coag (PPP) [Time] 35 s Normal 27-38 [facility] Comment on above: Order Comment: The A PTT is no longer used for monitoring Unfractionated Heparin Therapy. For monitoring Heparin Therapy, use the Heparin Assay. Performed By: #### 3 4529-8 ####FLORINDA Monroe ([id number])[facility] ([facility])[address] [place] [address] INR Coag (PPP) [Relative time] 1.7 High 0.9-1.1 [facility] Comment on above: Order Comment: The A PTT is no longer used for monitoring Unfractionated Heparin Therapy. For monitoring Heparin Therapy, use the Heparin Assay. Performed By: #### 3 4529-8 ####FLORINDA Monroe ([id number])[facility] ([facility])[address] [place] [address] PT Coag (PPP) [Time] 18.7 s High 9.8-12.8 [facility] Comment on above: Order Comment: The A PTT is no longer used for monitoring Unfractionated Heparin Therapy. For monitoring Heparin Therapy, use the Heparin Assay. Performed By: #### 3 4529-8 ####FLORINDA Monroe ([id number])[facility] ([facility])[address] [place] [address]6727 Renal function 2000 panelon 06-16-2024 Albumin BCP dye [Mass/Vol] 2.8 g/dL Low 3.4-5.0 [facility] Comment on above: Performed By: #### 2 4362-6 ####FLORINDA Monroe ([id number])[facility] ([facility])[address] [place] [address] Anion gap [Moles/Vol] 13 mmol/L Normal 10-20 [facility] Comment on above: Performed By: #### 2 4362-6 ####FLORINDA Monroe ([id number])[facility] ([facility])[address] [place] [address] 42887 Calcium [Mass/Vol] 8.4 mg/dL Low 8.6-10.6 [facility] Comment on above: Performed By: #### 2 4362-6 ####FLORINDA Monroe ([id number])[facility] ([facility])[address] [place] [address] 72641 Chloride [Moles/Vol] 104 mmol/L Normal 98-107 [facility] Comment on above: Performed By: #### 2 4362-6 ####FLORINDA Monroe ([id number])[facility] ([facility])[address] [place] [address] CO2 [Moles/Vol] 23 mmol/L Normal 21-32 [facility] Comment on above: Performed By: #### 2 4362-6 ####FLORINDA Monroe ([id number])[facility] ([facility])[address] [place] [address] Creatinine [Mass/Vol] 3.76 mg/dL High 0.50-1.30 [facility] Comment on above: Performed By: #### 2 4362-6 ####FLORINDA Monroe ([id number])[facility] ([facility])[address] [place] [address] Glomerular filtration rate/1.73 sq M.predicted 18 mL/min/1.73m*2 Low >60 [facility] Comment on above: Result Comment: Calc ulations of estimated GFR are performed using the 2020 CKD-EPI Study Refit equation without the race variable for the IDMS-Traceable creatinine methods.https://jasn.asnjournals.org/content//ASN. 0108219888 Performed By: #### 2 4362-6 ####FLORINDA Monroe ([id number])[facility] ([facility])[address] [place] [address] Glucose [Mass/Vol] 138 mg/dL High 74-99 [facility] Comment on above: Performed By: #### 2 4362-6 ####FLORINDA Monroe ([id number])[facility] ([facility])[address] [place] [address] Phosphate [Mass/Vol] 5.4 mg/dL High 2.5-4.9 [facility] Comment on above: Result Comment: The performance characteristics of phosphorus testing in heparinized plasma have been validated by the individual laboratory site where testing is performed. Testing on heparinized plasma is not approved by the FDA; however, such approval is not necessary. Performed By: #### 2 4362-6 ####FLORINDA Monroe ([id number])[facility] ([facility])[address] [place] [address] Potassium [Moles/Vol] 4.2 mmol/L Normal 3.5-5.3 [facility] Comment on above: Performed By: #### 2 4362-6 ####FLORINDA Monroe ([id number])[facility] ([facility])[address] [place] [address] Sodium [Moles/Vol] 136 mmol/L Normal 136-145 [facility] Comment on above: Performed By: #### 2 4362-6 ####FLORINDA Monroe ([id number])[facility] ([facility])[id number] [place] [address] 27707 Urea nitrogen [Mass/Vol] 54 mg/dL High 6-23 [facility] Comment on above: Performed By: #### 2 4362-6 ####FLORINDA Monroe ([id number])[facility] ([facility])[id number] [place] [address]1132 Tacrolimuson 06-16-2024 Tacrolimus (Bld) [Mass/Vol] 11.3 ng/mL Normal <=15.0 [facility] Comment on above: Order Comment: DANTE E GET TACRO LEVEL 30 MINS BEFORE GIVING TACRO PILLNOTE: Result was obtained using achemiluminescent microparticle immunoassay(CMIA) on the [employer] i system.Optimal therapeutic ranges for immunosuppressantdrugs depend upon an individualpatient's current clinical state, type oforgan transplant, time post-transplant,co-administration of other immunosuppressants,and other clinical factors. The results ofthis test should be correlated with additionalclinical and laboratory data before changesin treatment regimens are made. Performed By: #### 1 1253-2 ####FLORINDA Monroe ([id number])[facility] ([facility])[id number] [place] [address] Vancomycinon 06-16-2024 Vancomycin [Mass/Vol] 22.8 ug/mL High 5.0-20.0 [facility] Comment on above: Order Comment: Vanco mycin levels can be monitored according to area under the curve (AUC) or concentration (ug/mL). The preferred monitoring strategy is determined by the patient's renal function and indication for therapy.For AUC monitoring, a random vancomycin level should be interpreted in the context of AUC rather than the concentration at a single point in time.For concentration monitoring, a trough concentration drawn immediately prior to the next dose is preferred.Therapeutic ranges using concentration-guided results:Peak (all ages): 30.0-40.0 ug/mLTrough (all ages): 10.0-20.0 ug/mL Performed By: #### 2 0578-1 ####FLORINDA Monroe ([id number])[facility] ([facility])[address] [place] [address] CBC W Auto Differential pane l (Bld)on 06-15-2024 Basophils (Bld) [#/Vol] 0.02 x10*3/uL Normal 0.00-0.10 [facility] Comment on above: Order Comment: Post transfusion cbc Performed By: #### 5 7021-8 ####FLORINDA Monroe ([id number])[facility] ([facility])[address] [place] [address] Basophils/100 WBC (Bld) 0.1 % Normal 0.0-2.0 [facility] Comment on above: Order Comment: Post transfusion cbc Performed By: #### 5 7021-8 ####FLORINDA Monroe ([id number])[facility] ([facility])[address] [place] [address] Eosinophils (Bld) [#/Vol] 0.00 x10*3/uL Normal 0.00-0.70 [facility] Comment on above: Order Comment: Post transfusion cbc Performed By: #### 5 7021-8 ####FLORINDA Monroe ([id number])[facility] ([facility])[address] [place] [address] Eosinophils/100 WBC (Bld) 0.0 % Normal 0.0-6.0 [facility] Comment on above: Order Comment: Post transfusion cbc Performed By: #### 5 7021-8 ####FLORINDA Monroe ([id number])[facility] ([facility])[id number] [place] [address] Erythrocyte distribution width (RBC) [Ratio] 16.4 % High 11.5-14.5 [facility] Comment on above: Order Comment: Post transfusion cbc Performed By: #### 5 7021-8 ####FLORINDA Monroe ([id number])[facility] ([facility])[id number] [place] [address] Hematocrit (Bld) [Volume fraction] 23.5 % Low 41.0-52.0 [facility] Comment on above: Order Comment: Post transfusion cbc Performed By: #### 5 7021-8 ####FLORINDA Monroe ([id number])[facility] ([facility])[id number] [place] [address] Hemoglobin (Bld) [Mass/Vol] 7.7 g/dL Low 13.5-17.5 [facility] Comment on above: Order Comment: Post transfusion cbc Performed By: #### 5 7021-8 ####FLORINDA Monroe ([id number])[facility] ([facility])[id number] [place] [address] Immature granulocytes (Bld) [#/Vol] 0.33 x10*3/uL Normal 0.00-0.70 [facility] Comment on above: Order Comment: Post transfusion cbc Performed By: #### 5 7021-8 ####FLORINDA Monroe ([id number])[facility] ([facility])[address] [place] [address] Immature granulocytes/100 WBC (Bld) 2.2 % High 0.0-0.9 [facility] Comment on above: Order Comment: Post transfusion cbc Result Comment: Nathaly ture Granulocyte Count (IG) includes promyelocytes, myelocytes and metamyelocytes but does not include bands. Percent differential counts (%) should be interpreted in the context of the absolute cell counts (cells/UL). Performed By: #### 5 7021-8 ####FLORINDA Monroe ([id number])[facility] ([facility])[address] [place] [address] Lymphocytes (Bld) [#/Vol] 0.21 x10*3/uL Low 1.20-4.80 [facility] Comment on above: Order Comment: Post transfusion cbc Performed By: #### 5 7021-8 ####FLORINDA Monroe ([id number])[facility] ([facility])[address] [place] [address] Lymphocytes/100 WBC (Bld) 1.4 % Normal 13.0-44.0 [facility] Comment on above: Order Comment: Post transfusion cbc Performed By: #### 5 7021-8 ####FLORINDA Monroe ([id number])[facility] ([facility])[address] [place] [address] MCH (RBC) [Entitic mass] 29.1 pg Normal 26.0-34.0 [facility] Comment on above: Order Comment: Post transfusion cbc Performed By: #### 5 7021-8 ####FLORINDA Monroe ([id number])[facility] ([facility])[address] [place] [address] MCHC (RBC) [Mass/Vol] 32.8 g/dL Normal 32.0-36.0 [facility] Comment on above: Order Comment: Post transfusion cbc Performed By: #### 5 7021-8 ####FLORINDA Monroe ([id number])[facility] ([facility])[address] [place] [address] MCV (RBC) [Entitic vol] 89 fL Normal 80-100 [facility] Comment on above: Order Comment: Post transfusion cbc Performed By: #### 5 7021-8 ####FLORINDA Monroe ([id number])[facility] ([facility])[address] [place] [address] Monocytes (Bld) [#/Vol] 0.79 x10*3/uL Normal 0.10-1.00 [facility] Comment on above: Order Comment: Post transfusion cbc Performed By: #### 5 7021-8 ####FLORINDA Monroe ([id number])[facility] ([facility])[address] [place] [address] Monocytes/100 WBC (Bld) 5.3 % Normal 2.0-10.0 [facility] Comment on above: Order Comment: Post transfusion cbc Performed By: #### 5 7021-8 ####FLORINDA Monroe ([id number])[facility] ([facility])[address] [place] [address] Neutrophils (Bld) [#/Vol] 13.61 x10*3/uL High 1.20-7.70 [facility] Comment on above: Order Comment: Post transfusion cbc Result Comment: Perc ent differential counts (%) should be interpreted in the context of the absolute cell counts (cells/uL). Performed By: #### 5 7021-8 ####FLORINDA Monroe ([id number])[facility] ([facility])[address] [place] [address] Neutrophils/100 WBC (Bld) 91.0 % Normal 40.0-80.0 [facility] Comment on above: Order Comment: Post transfusion cbc Performed By: #### 5 7021-8 ####FLORINDA Monroe ([id number])[facility] ([facility])[address] [place] [address] Nucleated RBC/100 WBC (Bld) [Ratio] 0.0 /100 WBCs Normal 0.0-0.0 [facility] Comment on above: Order Comment: Post transfusion cbc Performed By: #### 5 7021-8 ####FLORINDA Monroe ([id number])[facility] ([facility])[address] [place] [address] Platelets (Bld) [#/Vol] 86 x10*3/uL Low 150-450 [facility] Comment on above: Order Comment: Post transfusion cbc Performed By: #### 5 7021-8 ####FLORINDA Monroe ([id number])[facility] ([facility])[address] [place] [address] RBC (Bld) [#/Vol] 2.65 x10*6/uL Low 4.50-5.90 [facility] Comment on above: Order Comment: Post transfusion cbc Performed By: #### 5 7021-8 ####FLORINDA Monroe ([id number])[facility] ([facility])[address] [place] [address] WBC (Bld) [#/Vol] 15.0 x10*3/uL High 4.4-11.3 [facility] Comment on above: Order Comment: Post transfusion cbc Performed By: #### 5 7021-8 ####FLORINDA Monroe ([id number])[facility] ([facility])[address] [place] [address] Basophils (Bld) [#/Vol] 0.01 x10*3/uL Normal 0.00-0.10 [facility] Comment on above: Performed By: #### 5 7021-8 ####FLORINDA TARANGO L ([id number])[facility] ([facility])[address] [place] [address] Basophils/100 WBC (Bld) 0.1 % Normal 0.0-2.0 [facility] Comment on above: Performed By: #### 5 7021-8 ####FLORINDA Monroe ([id number])[facility] ([facility])[address] [place] [address] Eosinophils (Bld) [#/Vol] 0.00 x10*3/uL Normal 0.00-0.70 [facility] Comment on above: Performed By: #### 5 7021-8 ####FLORINDA TARANGO L ([id number])[facility] ([facility])[address] [place] [address] Eosinophils/100 WBC (Bld) 0.0 % Normal 0.0-6.0 [facility] Comment on above: Performed By: #### 5 7021-8 ####FLORINDA TARANGO L ([id number])[facility] ([facility])[address] [place] [address] Erythrocyte distribution width (RBC) [Ratio] 16.1 % High 11.5-14.5 [facility] Comment on above: Performed By: #### 5 7021-8 ####FLORINDA Monroe ([id number])[facility] ([facility])[address] [place] [address] Hematocrit (Bld) [Volume fraction] 21.4 % Low 41.0-52.0 [facility] Comment on above: Performed By: #### 5 7021-8 ####FLORINDA Monroe ([id number])[facility] ([facility])[address] [place] [address] Hemoglobin (Bld) [Mass/Vol] 6.9 g/dL Low 13.5-17.5 [facility] Comment on above: Performed By: #### 5 7021-8 ####FLORINDA Monroe ([id number])[facility] ([facility])[address] [place] [address] Immature granulocytes (Bld) [#/Vol] 0.27 x10*3/uL Normal 0.00-0.70 [facility] Comment on above: Performed By: #### 5 7021-8 ####FLORINDA Monroe ([id number])[facility] ([facility])[address] [place] [address] Immature granulocytes/100 WBC (Bld) 1.9 % High 0.0-0.9 [facility] Comment on above: Result Comment: Nathaly ture Granulocyte Count (IG) includes promyelocytes, myelocytes and metamyelocytes but does not include bands. Percent differential counts (%) should be interpreted in the context of the absolute cell counts (cells/UL). Performed By: #### 5 7021-8 ####FLORINDA Monroe ([id number])[facility] ([facility])[address] [place] [address] Lymphocytes (Bld) [#/Vol] 0.35 x10*3/uL Low 1.20-4.80 [facility] Comment on above: Performed By: #### 5 7021-8 ####FLORINDA Monroe ([id number])[facility] ([facility])[address] [place] [address] Lymphocytes/100 WBC (Bld) 2.4 % Normal 13.0-44.0 [facility] Comment on above: Performed By: #### 5 7021-8 ####FLORINDA Monroe ([id number])[facility] ([facility])[address] [place] [address] MCH (RBC) [Entitic mass] 29.2 pg Normal 26.0-34.0 [facility] Comment on above: Performed By: #### 5 7021-8 ####FLORINDA Monroe ([id number])[facility] ([facility])[address] [place] [address] MCHC (RBC) [Mass/Vol] 32.2 g/dL Normal 32.0-36.0 [facility] Comment on above: Performed By: #### 5 7021-8 ####FLORINDA Monroe ([id number])[facility] ([facility])[address] [place] [address] MCV (RBC) [Entitic vol] 91 fL Normal 80-100 [facility] Comment on above: Performed By: #### 5 7021-8 ####FLORINDA Monroe ([id number])[facility] ([facility])[address] [place] [address] Monocytes (Bld) [#/Vol] 0.79 x10*3/uL Normal 0.10-1.00 [facility] Comment on above: Performed By: #### 5 7021-8 ####FLORINDA Monroe ([id number])[facility] ([facility])[address] [place] [address] Monocytes/100 WBC (Bld) 5.4 % Normal 2.0-10.0 [facility] Comment on above: Performed By: #### 5 7021-8 ####FLORINDA Monroe ([id number])[facility] ([facility])[address] [place] [address] Neutrophils (Bld) [#/Vol] 13.14 x10*3/uL High 1.20-7.70 [facility] Comment on above: Result Comment: Perc ent differential counts (%) should be interpreted in the context of the absolute cell counts (cells/uL). Performed By: #### 5 7021-8 ####FLORINDA Monroe ([id number])[facility] ([facility])[address] [place] [address] Neutrophils/100 WBC (Bld) 90.2 % Normal 40.0-80.0 [facility] Comment on above: Performed By: #### 5 7021-8 ####FLORINDA Monroe ([id number])[facility] ([facility])[address] [place] [address] Nucleated RBC/100 WBC (Bld) [Ratio] 0.0 /100 WBCs Normal 0.0-0.0 [facility] Comment on above: Performed By: #### 5 7021-8 ####FLORINDA Monroe ([id number])[facility] ([facility])[address] [place] [address] Platelets (Bld) [#/Vol] 109 x10*3/uL Low 150-450 [facility] Comment on above: Performed By: #### 5 7021-8 ####FLORINDA Monroe ([id number])[facility] ([facility])[address] [place] [address] RBC (Bld) [#/Vol] 2.36 x10*6/uL Low 4.50-5.90 [facility] Comment on above: Performed By: #### 5 7021-8 ####FLORINDA Monroe ([id number])[facility] ([facility])[address] [place] [address] WBC (Bld) [#/Vol] 14.6 x10*3/uL High 4.4-11.3 [facility] Comment on above: Performed By: #### 5 7021-8 ####FLORINDA TARANGO L ([id number])[facility] ([facility])[address] [place] [address] Comprehensive metabolic 2000 panelon 06-15-2024 Albumin BCP dye [Mass/Vol] 2.8 g/dL Low 3.4-5.0 [facility] Comment on above: Performed By: #### 2 4323-8 ####FLORINDA TARANGO L ([id number])[facility] ([facility])[address] [place] [address] ALP [Catalytic activity/Vol] 49 U/L Normal 33-120 [facility] Comment on above: Performed By: #### 2 4323-8 ####FLORINDA TARANGO L ([id number])[facility] ([facility])[address] [place] [address] ALT With P-5'-P [Catalytic activity/Vol] 20 U/L Normal 10-52 [facility] Comment on above: Result Comment: Karely ents treated with Sulfasalazine may generate falsely decreased results for ALT. Performed By: #### 2 4323-8 ####FLORINDA Monroe ([id number])[facility] ([facility])[address] [place] [address] Anion gap [Moles/Vol] 14 mmol/L Normal 10-20 [facility] Comment on above: Performed By: #### 2 4323-8 ####FLORINDA TARANGO L ([id number])[facility] ([facility])[address] [place] [address] AST With P-5'-P [Catalytic activity/Vol] 55 U/L High 9-39 [facility] Comment on above: Result Comment: MILD HEMOLYSIS DETECTED. The result may be falsely elevated due to hemolysis or other interferents. Clinical correlation is recommended. Repeat testing may be considered. Performed By: #### 2 4323-8 ####FLORINDA TARANGO L ([id number])[facility] ([facility])[address] [place] [address] Bilirubin [Mass/Vol] 0.5 mg/dL Normal 0.0-1.2 [facility] Comment on above: Performed By: #### 2 4323-8 ####FLORINDA TARANGO L ([id number])[facility] ([facility])[address] [place] [address] Calcium [Mass/Vol] 8.1 mg/dL Low 8.6-10.6 [facility] Comment on above: Performed By: #### 2 4323-8 ####FLORINDA TARANGO L ([id number])[facility] ([facility])[address] [place] [address] Chloride [Moles/Vol] 105 mmol/L Normal 98-107 [facility] Comment on above: Performed By: #### 2 4323-8 ####FLORINDA TARANGO L ([id number])[facility] ([facility])[address] [place] [address] CO2 [Moles/Vol] 22 mmol/L Normal 21-32 [facility] Comment on above: Performed By: #### 2 4323-8 ####FLORINDA TARANGO L ([id number])[facility] ([facility])[address] [place] [address] Creatinine [Mass/Vol] 3.56 mg/dL High 0.50-1.30 [facility] Comment on above: Performed By: #### 2 4323-8 ####FLORINDA TARANGO L ([id number])[facility] ([facility])[address] [place] [address] Glomerular filtration rate/1.73 sq M.predicted 19 mL/min/1.73m*2 Low >60 [facility] Comment on above: Result Comment: Calc ulations of estimated GFR are performed using the 2020 CKD-EPI Study Refit equation without the race variable for the IDMS-Traceable creatinine methods.https://jasn.asnjournals.org/content//ASN. 0826768152 Performed By: #### 2 4323-8 ####FLORINDA Monroe ([id number])[facility] ([facility])[address] [place] [address] Glucose [Mass/Vol] 161 mg/dL High 74-99 [facility] Comment on above: Performed By: #### 2 4323-8 ####FLORINDA Monroe ([id number])[facility] ([facility])[address] [place] [address] Potassium [Moles/Vol] 5.0 mmol/L Normal 3.5-5.3 [facility] Comment on above: Result Comment: MILD HEMOLYSIS DETECTED. The result may be falsely elevated due to hemolysis or other interferents. Clinical correlation is recommended. Repeat testing may be considered. Performed By: #### 2 4323-8 ####FLORINDA Monroe ([id number])[facility] ([facility])[address] [place] [address] Protein [Mass/Vol] 4.9 g/dL Low 6.4-8.2 [facility] Comment on above: Performed By: #### 2 4323-8 ####FLORINDA Monroe ([id number])[facility] ([facility])[address] [place] [address] Sodium [Moles/Vol] 136 mmol/L Normal 136-145 [facility] Comment on above: Performed By: #### 2 4323-8 ####FLORINDA Monroe ([id number])[facility] ([facility])[address] [place] [address] Urea nitrogen [Mass/Vol] 51 mg/dL High 6-23 [facility] Comment on above: Performed By: #### 2 4323-8 ####FLORINDA Monroe ([id number])[facility] ([facility])[address] [place] [address] Fibrinogenon 06-15-2024 Fibrinogen Coag (PPP) [Mass/Vol] 340 mg/dL Normal 200-400 [facility] Comment on above: Performed By: #### 3 255-7 ####FLORINDA Monroe ([id number])[facility] ([facility])[address] [place] [address] Gas and Carbon monoxide and Electrolytes panel (BldA)on 06-15-2024 Anion gap 4 (BldA) [Moles/Vol] 13 mmo/L Normal 10-25 [facility] Comment on above: Performed By: #### 9 3685-6 ####FLORINDA Monroe ([id number])[facility] ([facility])[address] [place] [address] Base excess Calc (Bld) [Moles/Vol] -5.3000 mmol/L Low -2.0-3.0 [facility] Comment on above: Performed By: #### 9 3685-6 ####FLORINDA Monroe ([id number])[facility] ([facility])[address] [place] [address] Calcium.ionized (BldA) [Moles/Vol] 1.21 mmol/L Normal 1.10-1.33 [facility] Comment on above: Performed By: #### 9 3685-6 ####FLORINDA Monroe ([id number])[facility] ([facility])[address] [place] [address] Chloride (BldA) [Moles/Vol] 103 mmol/L Normal 98-107 [facility] Comment on above: Performed By: #### 9 3685-6 ####FLORINDA Monroe ([id number])[facility] ([facility])[address] [place] [address] CO2 (Bld) [Partial pressure] 42 mm Hg Normal 38-42 [facility] Comment on above: Performed By: #### 9 3685-6 ####FLORINDA Monroe ([id number])[facility] ([facility])[address] [place] [address] Glucose [Mass/Vol] 163 mg/dL High 74-99 [facility] Comment on above: Performed By: #### 9 3685-6 ####FLORINDA Monroe ([id number])[facility] ([facility])[address] [place] [address] HCO3 (Bld) [Moles/Vol] 20.7 mmol/L Low 22.0-26.0 [facility] Comment on above: Performed By: #### 9 3685-6 ####FLORINDA Monroe ([id number])[facility] ([facility])[address] [place] [address] Hematocrit Est (Bld) [Volume fraction] 24.0 % Low 41.0-52.0 [facility] Comment on above: Performed By: #### 9 8165-6 ####FLORINDA Monroe ([id number])[facility] ([facility])[address] [place] [address] Hemoglobin (Bld) [Mass/Vol] 8.1 g/dL Low 13.5-17.5 [facility] Comment on above: Performed By: #### 9 5192-6 ####FLORINDA Monroe ([id number])[facility] ([facility])[address] [place] [address] Inhaled oxygen concentration 41 % Normal [facility] Comment on above: Performed By: #### 9 3823-6 ####FLORINDA Monroe ([id number])[facility] ([facility])[address] [place] [address] Lactate (BldA) [Moles/Vol] 0.8 mmol/L Normal 0.4-2.0 [facility] Comment on above: Performed By: #### 9 9595-6 ####FLORINDA Monroe ([id number])[facility] ([facility])[id number] [place] [address] 43336 Oxygen (Bld) [Partial pressure] 92 mm Hg Normal 85-95 [facility] Comment on above: Performed By: #### 9 6155-6 ####FLORINDA Monroe ([id number])[facility] ([facility])[id number] [place] [address] 21047 Oxyhemoglobin (BldA) [Mass fraction] 95.9 % Normal 94.0-98.0 [facility] Comment on above: Performed By: #### 9 3685-6 ####FLORINDA Monroe ([id number])[facility] ([facility])[id number] [place] [address] 16870 pH (Bld) 7.30 [pH] Low 7.38-7.42 [facility] Comment on above: Performed By: #### 9 3685-6 ####FLORINDA Monroe ([id number])[facility] ([facility])[id number] [place] [address] 19087 Potassium (BldA) [Moles/Vol] 4.7 mmol/L Normal 3.5-5.3 [facility] Comment on above: Performed By: #### 9 3685-6 ####FLORINDA Monroe ([id number])[facility] ([facility])[id number] [place] [address] 06945 Sodium (BldA) [Moles/Vol] 132 mmol/L Low 136-145 [facility] Comment on above: Performed By: #### 9 3685-6 ####FLORINDA Monroe ([id number])[facility] ([facility])[id number] [place] [address] 02863 Anion gap 4 (BldA) [Moles/Vol] 11 mmo/L Normal 10-25 [facility] Comment on above: Performed By: #### 9 3685-6 ####FLORINDA Monroe ([id number])[facility] ([facility])[id number] [place] [address] 06982 Base excess Calc (Bld) [Moles/Vol] -5.5000 mmol/L Low -2.0-3.0 [facility] Comment on above: Performed By: #### 9 3685-6 ####FLORINDA Monroe ([id number])[facility] ([facility])[address] [place] [address] 04283 Calcium.ionized (BldA) [Moles/Vol] 1.20 mmol/L Normal 1.10-1.33 [facility] Comment on above: Performed By: #### 9 3685-6 ####FLORINDA Monroe ([id number])[facility] ([facility])[address] [place] [address] Chloride (BldA) [Moles/Vol] 103 mmol/L Normal 98-107 [facility] Comment on above: Performed By: #### 9 3685-6 ####FLORINDA TARANGO L ([id number])[facility] ([facility])[address] [place] [address] CO2 (Bld) [Partial pressure] 49 mm Hg High 38-42 [facility] Comment on above: Performed By: #### 9 3685-6 ####FLORINDA Monroe ([id number])[facility] ([facility])[address] [place] [address] 66643 Glucose [Mass/Vol] 226 mg/dL High 74-99 [facility] Comment on above: Performed By: #### 9 7535-6 ####FLORINDA TARANGO L ([id number])[facility] ([facility])[address] [place] [address] HCO3 (Bld) [Moles/Vol] 21.5 mmol/L Low 22.0-26.0 [facility] Comment on above: Performed By: #### 9 3685-6 ####FLORINDA TARANGO L ([id number])[facility] ([facility])[address] [place] [address] 06477 Hematocrit Est (Bld) [Volume fraction] 24.0 % Low 41.0-52.0 [facility] Comment on above: Performed By: #### 9 3685-6 ####FLORINDA TARANGO L ([id number])[facility] ([facility])[address] [place] [address] Hemoglobin (Bld) [Mass/Vol] 7.9 g/dL Low 13.5-17.5 [facility] Comment on above: Performed By: #### 9 3685-6 ####FLORINDA TARANGO L ([id number])[facility] ([facility])[address] [place] [address] 22368 Inhaled oxygen concentration 35 % Normal [facility] Comment on above: Performed By: #### 9 3685-6 ####FLORINDA Monroe ([id number])[facility] ([facility])[address] [place] [address] Lactate (BldA) [Moles/Vol] 0.7 mmol/L Normal 0.4-2.0 [facility] Comment on above: Performed By: #### 9 3685-6 ####FLORINDA Monroe ([id number])[facility] ([facility])[address] [place] [address] Oxygen (Bld) [Partial pressure] 76 mm Hg Low 85-95 [facility] Comment on above: Performed By: #### 9 3685-6 ####FLORINDA Monroe ([id number])[facility] ([facility])[address] [place] [address] Oxyhemoglobin (BldA) [Mass fraction] 94.5 % Normal 94.0-98.0 [facility] Comment on above: Performed By: #### 9 3685-6 ####FLORINDA Monroe ([id number])[facility] ([facility])[address] [place] [address] pH (Bld) 7.25 [pH] Critically low 7.38-7.42 [facility] Comment on above: Performed By: #### 9 3685-6 ####FLORINDA Monroe ([id number])[facility] ([facility])[address] [place] [address] Potassium (BldA) [Moles/Vol] 4.5 mmol/L Normal 3.5-5.3 [facility] Comment on above: Performed By: #### 9 3685-6 ####FLORINDA Monroe ([id number])[facility] ([facility])[address] [place] [address] Sodium (BldA) [Moles/Vol] 131 mmol/L Low 136-145 [facility] Comment on above: Performed By: #### 9 2805-6 ####FLORINDA Monroe ([id number])[facility] ([facility])[address] [place] [address] Gas panel (BldMV)on 06-15-20 24 Anion gap 4 (BldMV) [Moles/Vol] 12 mmo/L Normal 10-25 [facility] Comment on above: Performed By: #### 5 1973-03 ####FLORINDA Monroe ([id number])[facility] ([facility])[id number] [place] [address] 07136 Base excess Calc (BldMV) [Moles/Vol] -4.9 mmol/L Low -2.0-3.0 [facility] Comment on above: Performed By: #### 5 1973-03 ####FLORINDA Monroe ([id number])[facility] ([facility])[address] [place] [address] 50960 Calcium.ionized (BldMV) [Moles/Vol] 1.23 mmol/L Normal 1.10-1.33 [facility] Comment on above: Performed By: #### 5 1973-03 ####FLORINDA Monroe ([id number])[facility] ([facility])[address] [place] [address] 76116 Chloride [Moles/Vol] 102 mmol/L Normal 98-107 [facility] Comment on above: Performed By: #### 5 1973-03 ####FLORINDA Monroe ([id number])[facility] ([facility])[address] [place] [address] 30893 CO2 (BldMV) [Partial pressure] 49 mm Hg Normal 41-51 [facility] Comment on above: Performed By: #### 5 1973-03 ####FLORINDA Monroe ([id number])[facility] ([facility])[address] [place] [address] 94942 Glucose [Mass/Vol] 167 mg/dL High 74-99 [facility] Comment on above: Performed By: #### 5 1973-03 ####FLORINDA Monroe ([id number])[facility] ([facility])[address] [place] [address] HCO3 (BldMV) [Moles/Vol] 22.0 mmol/L Normal 22.0-26.0 [facility] Comment on above: Performed By: #### 5 1973-03 ####FLORINDA Monroe ([id number])[facility] ([facility])[address] [place] [address] 99281 Hematocrit Est (Bld) [Volume fraction] 24.0 % Low 41.0-52.0 [facility] Comment on above: Performed By: #### 5 1973-03 ####FLORINDA Monroe ([id number])[facility] ([facility])[address] [place] [address] 53726 Hemoglobin (Bld) [Mass/Vol] 7.9 g/dL Low 13.5-17.5 [facility] Comment on above: Performed By: #### 5 1973-03 ####FLORINDA Monroe ([id number])[facility] ([facility])[address] [place] [address] 59507 Inhaled oxygen concentration 41 % Normal [facility] Comment on above: Performed By: #### 5 6 ####FLORINDA Monroe ([id number])[facility] ([facility])[address] [place] [address] 28167 Lactate (BldMV) [Moles/Vol] 0.8 mmol/L Normal 0.4-2.0 [facility] Comment on above: Performed By: #### 5 6 ####FLORINDA Monroe ([id number])[facility] ([facility])[address] [place] [address] 92981 Oxygen (BldMV) [Partial pressure] 45 mm Hg Normal 35-45 [facility] Comment on above: Performed By: #### 5 1973-03 ####FLORINDA Monroe ([id number])[facility] ([facility])[address] [place] [address] 46645 Oxyhemoglobin (BldMV) [Mass fraction] 76.2 % High 45.0-75.0 [facility] Comment on above: Performed By: #### 5 1973-03 ####FLORINDA Monroe ([id number])[facility] ([facility])[address] [place] [address] pH (BldMV) 7.26 pH Low 7.33-7.43 [facility] Comment on above: Performed By: #### 5 1973-03 ####FLORINDA Monroe ([id number])[facility] ([facility])[address] [place] [address] 52364 Potassium (BldMV) [Moles/Vol] 4.2 mmol/L Normal 3.5-5.3 [facility] Comment on above: Performed By: #### 5 1973-03 ####FLORINDA Monroe ([id number])[facility] ([facility])[address] [place] [address] 86520 Sodium (BldMV) [Moles/Vol] 132 mmol/L Low 136-145 [facility] Comment on above: Performed By: #### 5 1973-03 ####FLORINDA Monroe ([id number])[facility] ([facility])[address] [place] [address] Anion gap 4 (BldMV) [Moles/Vol] 12 mmo/L Normal 10-25 [facility] Comment on above: Performed By: #### 5 1973-03 ####FLORINDA Monroe ([id number])[facility] ([facility])[address] [place] [address] 03976 Base excess Calc (BldMV) [Moles/Vol] -5.5 mmol/L Low -2.0-3.0 [facility] Comment on above: Performed By: #### 5 1973-03 ####FLORINDA Monroe ([id number])[facility] ([facility])[address] [place] [address] 74201 Calcium.ionized (BldMV) [Moles/Vol] 1.23 mmol/L Normal 1.10-1.33 [facility] Comment on above: Performed By: #### 5 1973-03 ####FLORINDA TARANGO L ([id number])[facility] ([facility])[address] [place] [address] Chloride [Moles/Vol] 103 mmol/L Normal 98-107 [facility] Comment on above: Performed By: #### 5 1973-03 ####FLORINDA TARANGO L ([id number])[facility] ([facility])[address] [place] [address] CO2 (BldMV) [Partial pressure] 52 mm Hg High 41-51 [facility] Comment on above: Performed By: #### 5 1973-03 ####FLORINDA TARANGO L ([id number])[facility] ([facility])[address]262 [place] [address] Glucose [Mass/Vol] 182 mg/dL High 74-99 [facility] Comment on above: Performed By: #### 5 1973-03 ####FLORINDA TARANGO L ([id number])[facility] ([facility])[address]359 [place] [address] HCO3 (BldMV) [Moles/Vol] 21.8 mmol/L Low 22.0-26.0 [facility] Comment on above: Performed By: #### 5 1973-03 ####FLORINDA TARANGO L ([id number])[facility] ([facility])[address]282 [place] [address] Hematocrit Est (Bld) [Volume fraction] 23.0 % Low 41.0-52.0 [facility] Comment on above: Performed By: #### 5 1973-03 ####FLORINDA TARANGO L ([id number])[facility] ([facility])[address] [place] [address] Hemoglobin (Bld) [Mass/Vol] 7.6 g/dL Low 13.5-17.5 [facility] Comment on above: Performed By: #### 5 1973-03 ####FLORINDA TARANGO L ([id number])[facility] ([facility])[address] [place] [address] Inhaled oxygen concentration 40 % Normal [facility] Comment on above: Performed By: #### 5 1973-03 ####FLORINDA TARANGO L ([id number])[facility] ([facility])[address] [place] [address] 18843 Lactate (BldMV) [Moles/Vol] 0.7 mmol/L Normal 0.4-2.0 [facility] Comment on above: Performed By: #### 5 1973-03 ####FLORINDA TARANGO L ([id number])[facility] ([facility])[address] [place] [address] 15766 Oxygen (BldMV) [Partial pressure] 43 mm Hg Normal 35-45 [facility] Comment on above: Performed By: #### 5 1973-03 ####FLORINDA Monroe ([id number])[facility] ([facility])[address] [place] [address] 56696 Oxyhemoglobin (BldMV) [Mass fraction] 75.5 % High 45.0-75.0 [facility] Comment on above: Performed By: #### 5 1973-03 ####FLORINDA TARANGO L ([id number])[facility] ([facility])[address] [place] [address] 64745 pH (BldMV) 7.23 pH Critically low 7.33-7.43 [facility] Comment on above: Performed By: #### 5 1973-03 ####FLORINDA TARANGO L ([id number])[facility] ([facility])[address] [place] [address] 31695 Potassium (BldMV) [Moles/Vol] 4.6 mmol/L Normal 3.5-5.3 [facility] Comment on above: Performed By: #### 5 1973-03 ####FLORINDA TARANGO L ([id number])[facility] ([facility])[address] [place] [address] 04663 Sodium (BldMV) [Moles/Vol] 132 mmol/L Low 136-145 [facility] Comment on above: Performed By: #### 5 1973-03 ####FLORINDA TARANGO L ([id number])[facility] ([facility])[address]67 [place] [address] Glucose Test strip manual (B ld) [Mass/Vol]on 06-15-2024 Glucose [Mass/Vol] 183 mg/dL High 74-99 [facility] Comment on above: Performed By: #### 2 341-6 ####FLORINDA Monroe ([id number])[facility] ([facility])[address] [place] [address] Lactate dehydrogenaseon LDH Lactate to pyruvate reaction [Catalytic activity/Vol] 391 U/L High 84-246 [facility] Comment on above: Result Comment: MILD HEMOLYSIS DETECTED. The result may be falsely elevated due to hemolysis or other interferents. Clinical correlation is recommended. Repeat testing may be considered. Performed By: #### 1 4804-9 ####FLORINDA Monroe ([id number])[facility] ([facility])[address] [place] [address] 71999 Magnesiumon 06-15-2024 Magnesium [Mass/Vol] 2.16 mg/dL Normal 1.60-2.40 [facility] Comment on above: Result Comment: MILD HEMOLYSIS DETECTED. The result may be falsely elevated due to hemolysis or other interferents. Clinical correlation is recommended. Repeat testing may be considered. Performed By: #### 1 9123-9 ####FLORINDA Monroe ([id number])[facility] ([facility])[address] [place] [address] PT and aPTT panel Coag (PPP) on 06-15-2024 aPTT Coag (PPP) [Time] 39 s High 27-38 [facility] Comment on above: Order Comment: The A PTT is no longer used for monitoring Unfractionated Heparin Therapy. For monitoring Heparin Therapy, use the Heparin Assay. Performed By: #### 3 4529-8 ####FLORINDA Monroe ([id number])[facility] ([facility])[address] [place] [address] INR Coag (PPP) [Relative time] 4.0 High 0.9-1.1 [facility] Comment on above: Order Comment: The A PTT is no longer used for monitoring Unfractionated Heparin Therapy. For monitoring Heparin Therapy, use the Heparin Assay. Performed By: #### 3 4529-8 ####FLORINDA Monroe ([id number])[facility] ([facility])[address] [place] [address] PT Coag (PPP) [Time] 46.1 s High 9.8-12.8 [facility] Comment on above: Order Comment: The A PTT is no longer used for monitoring Unfractionated Heparin Therapy. For monitoring Heparin Therapy, use the Heparin Assay. Performed By: #### 3 4529-8 ####FLORINDA Monroe ([id number])[facility] ([facility])[address] [place] [address] 27216 Tacrolimuson 06-15-2024 Tacrolimus (Bld) [Mass/Vol] 6.7 ng/mL Normal <=15.0 [facility] Comment on above: Order Comment: PLEAS E DRAW 30 MINUTES BEFORE GIVING TACROLIMUS PILLNOTE: Result was obtained using achemiluminescent microparticle immunoassay(CMIA) on the [employer] i system.Optimal therapeutic ranges for immunosuppressantdrugs depend upon an individualpatient's current clinical state, type oforgan transplant, time post-transplant,co-administration of other immunosuppressants,and other clinical factors. The results ofthis test should be correlated with additionalclinical and laboratory data before changesin treatment regimens are made. Performed By: #### 1 1253-2 ####FLORINDA Monroe ([id number])[facility] ([facility])[address] [place] [address] Vancomycinon 06-15-2024 Vancomycin [Mass/Vol] 24.8 ug/mL High 5.0-20.0 [facility] Comment on above: Order Comment: Nurse to draw levelVancomycin levels can be monitored according to area under the curve (AUC) or concentration (ug/mL). The preferred monitoring strategy is determined by the patient's renal function and indication for therapy.For AUC monitoring, a random vancomycin level should be interpreted in the context of AUC rather than the concentration at a single point in time.For concentration monitoring, a trough concentration drawn immediately prior to the next dose is preferred.Therapeutic ranges using concentration-guided results:Peak (all ages): 30.0-40.0 ug/mLTrough (all ages): 10.0-20.0 ug/mL Performed By: #### 2 0578-1 ####FLORINDA Monroe ([id number])[facility] ([facility])[id number] [place] [address] 58488 BB ORDER ONLY - ANTIBODY JENA NTIFICATIONon 06-14-2024 Blood group antibody investigation (P/RBC) [Interp] ANTI-D [facility] Comment on above: Performed By: #### A BID ####FLORINDA Monroe ([id number])[facility] ([facility])[address] [place] [address]31 CASE # [id number] [facility] Comment on above: Performed By: #### A BID ####FLORINDA Monroe ([id number])[facility] ([facility])[address] [place] [address] 90925 Bacteria identifiedon 2023 Bacteria identified Cx Nom (U) [facility] Comment on above: Performed By: #### 6 30-4 ####FLORINDA Monroe ([id number])[facility] ([facility])[address] [place] [address] 74187 Bacteria identified Cx Nom (Bld) Abnormal [facility] Comment on above: Performed By: #### 6 00-7 ####FLORINDA Monroe ([id number])[facility] ([facility])[address] [place] [address] 67674 Blood type and Indirect anti body screen panel (Bld)on 06-14-2024 ABO group Nom (Bld) O [facility] Comment on above: Performed By: #### 3 4532-2 ####FLORINDA Monroe ([id number])[facility] ([facility])[address] [place] [address] 34052 Blood group antibody screen Ql Positive [facility] Comment on above: Performed By: #### 3 4532-2 ####FLORINDA Monroe ([id number])[facility] ([facility])[address] [place] [address] D Ag Ql (Bld) Negative Normal [facility] Comment on above: Performed By: #### 3 4532-2 ####FLORINDA Monroe ([id number])[facility] ([facility])[address] [place] [address] CARDIAC CATHETERIZATION PROC EDUREon 06-14-2024 CARDIAC CATHETERIZATION PROCEDURE Normal [facility] CBC W Auto Differential pane l (Bld)on 06-14-2024 Basophils (Bld) [#/Vol] 0.02 x10*3/uL Normal 0.00-0.10 [facility] Comment on above: Performed By: #### 5 7021-8 ####FLORINDA Monroe ([id number])[facility] ([facility])[address] [place] [address] Basophils/100 WBC (Bld) 0.1 % Normal 0.0-2.0 [facility] Comment on above: Performed By: #### 5 7021-8 ####FLORINDA Monroe ([id number])[facility] ([facility])[address] [place] [address] Eosinophils (Bld) [#/Vol] 0.01 x10*3/uL Normal 0.00-0.70 [facility] Comment on above: Performed By: #### 5 7021-8 ####FLORINDA Monroe ([id number])[facility] ([facility])[address] [place] [address] Eosinophils/100 WBC (Bld) 0.1 % Normal 0.0-6.0 [facility] Comment on above: Performed By: #### 5 7021-8 ####FLORINDA Monroe ([id number])[facility] ([facility])[address] [facility] [place] [address] Erythrocyte distribution width (RBC) [Ratio] 16.1 % High 11.5-14.5 [facility] Comment on above: Performed By: #### 5 7021-8 ####FLORINDA Monroe ([id number])[facility] ([facility])[address] [place] [address] Hematocrit (Bld) [Volume fraction] 24.7 % Low 41.0-52.0 [facility] Comment on above: Performed By: #### 5 7021-8 ####FLORINDA ROSEER L ([id number])[facility] ([facility])[address] [place] [address] Hemoglobin (Bld) [Mass/Vol] 8.0 g/dL Low 13.5-17.5 [facility] Comment on above: Performed By: #### 5 7021-8 ####FLORINDA Monroe ([id number])[facility] ([facility])[address] [place] [address] 16666 Immature granulocytes (Bld) [#/Vol] 0.31 x10*3/uL Normal 0.00-0.70 [facility] Comment on above: Performed By: #### 5 7021-8 ####FLORINDA TARANGO L ([id number])[facility] ([facility])[address] [place] [address] Immature granulocytes/100 WBC (Bld) 2.1 % High 0.0-0.9 [facility] Comment on above: Result Comment: Nathaly ture Granulocyte Count (IG) includes promyelocytes, myelocytes and metamyelocytes but does not include bands. Percent differential counts (%) should be interpreted in the context of the absolute cell counts (cells/UL). Performed By: #### 5 7021-8 ####FLORINDA TARANGO L ([id number])[facility] ([facility])[address] [place] [address] Lymphocytes (Bld) [#/Vol] 0.20 x10*3/uL Low 1.20-4.80 [facility] Comment on above: Performed By: #### 5 7021-8 ####FLORINDA TARANGO L ([id number])[facility] ([facility])[address] [place] [address] Lymphocytes/100 WBC (Bld) 1.4 % Normal 13.0-44.0 [facility] Comment on above: Performed By: #### 5 7021-8 ####FLORINDA Monroe ([id number])[facility] ([facility])[address] [place] [address] MCH (RBC) [Entitic mass] 29.0 pg Normal 26.0-34.0 [facility] Comment on above: Performed By: #### 5 7021-8 ####FLROINDA Monroe ([id number])[facility] ([facility])[address] [place] [address] MCHC (RBC) [Mass/Vol] 32.4 g/dL Normal 32.0-36.0 [facility] Comment on above: Performed By: #### 5 7021-8 ####FLORINDA Monroe ([id number])[facility] ([facility])[address] [place] [address] MCV (RBC) [Entitic vol] 90 fL Normal 80-100 [facility] Comment on above: Performed By: #### 5 7021-8 ####FLORINDA Monroe ([id number])[facility] ([facility])[address] [place] [address] Monocytes (Bld) [#/Vol] 0.32 x10*3/uL Normal 0.10-1.00 [facility] Comment on above: Performed By: #### 5 7021-8 ####FLORINDA Monroe ([id number])[facility] [facility])[address] [place] [address] Monocytes/100 WBC (Bld) 2.2 % Normal 2.0-10.0 [facility] Comment on above: Performed By: #### 5 7021-8 ####FLORINDA Monroe ([id number])[facility] ([facility])[address] [place] [address] Neutrophils (Bld) [#/Vol] 13.84 x10*3/uL High 1.20-7.70 [facility] Comment on above: Result Comment: Perc ent differential counts (%) should be interpreted in the context of the absolute cell counts (cells/uL). Performed By: #### 5 7021-8 ####FLORINDA Monroe ([id number])[facility] ([facility])[address] [place] [address] Neutrophils/100 WBC (Bld) 94.1 % Normal 40.0-80.0 [facility] Comment on above: Performed By: #### 5 7021-8 ####FLORINDA Monroe ([id number])[facility] ([facility])[address] [place] [address] Nucleated RBC/100 WBC (Bld) [Ratio] 0.0 /100 WBCs Normal 0.0-0.0 [facility] Comment on above: Performed By: #### 5 7021-8 ####FLORINDA Monroe ([id number])[facility] ([facility])[address] [place] [address] Platelets (Bld) [#/Vol] 55 x10*3/uL Low 150-450 [facility] Comment on above: Result Comment: Plat elet count verified by smear review. Performed By: #### 5 7021-8 ####FLORINDA Monroe ([id number])[facility] ([facility])[address] [place] [address] RBC (Bld) [#/Vol] 2.76 x10*6/uL Low 4.50-5.90 [facility] Comment on above: Performed By: #### 5 7021-8 ####FLORINDA Monroe ([id number])[facility] ([facility])[address] [place] [address] WBC (Bld) [#/Vol] 14.7 x10*3/uL High 4.4-11.3 [facility] Comment on above: Performed By: #### 5 7021-8 ####FLORINDA Monroe ([id number])[facility] ([facility])[address] [place] [address] CT CHEST ABDOMEN PELVIS WO C ONTRASTon 06-14-2024 CT CHEST ABDOMEN PELVIS WO CONTRAST Normal [facility] Comprehensive metabolic 2000 panelon 06-14-2024 Albumin BCP dye [Mass/Vol] 2.7 g/dL Low 3.4-5.0 [facility] Comment on above: Performed By: #### 2 4323-8 ####FLORINDA Monroe ([id number])[facility] ([facility])[address] [place] [address] ALP [Catalytic activity/Vol] 60 U/L Normal 33-120 [facility] Comment on above: Performed By: #### 2 4323-8 ####FLORINDA Monroe ([id number])[facility] ([facility])[address] [place] [address] ALT With P-5'-P [Catalytic activity/Vol] 19 U/L Normal 10-52 [facility] Comment on above: Result Comment: Karely ents treated with Sulfasalazine may generate falsely decreased results for ALT. Performed By: #### 2 4323-8 ####FLORINDA Monroe ([id number])[facility] ([facility])[address] [place] [address] Anion gap [Moles/Vol] 15 mmol/L Normal 10-20 [facility] Comment on above: Performed By: #### 2 4323-8 ####FLORINDA Monroe ([id number])[facility] ([facility])[address] [place] [address] AST With P-5'-P [Catalytic activity/Vol] 68 U/L High 9-39 [facility] Comment on above: Performed By: #### 2 4323-8 ####FLORINDA Monroe ([id number])[facility] ([facility])[address] [place] [address] Bilirubin [Mass/Vol] 0.7 mg/dL Normal 0.0-1.2 [facility] Comment on above: Performed By: #### 2 4323-8 ####FLORINDA Monroe ([id number])[facility] ([facility])[address] [place] [address] Calcium [Mass/Vol] 8.3 mg/dL Low 8.6-10.6 [facility] Comment on above: Performed By: #### 2 4323-8 ####FLORINDA TARANGO L ([id number])[facility] ([facility])[address] [place] [address] Chloride [Moles/Vol] 106 mmol/L Normal 98-107 [facility] Comment on above: Performed By: #### 2 4323-8 ####FLORINDA TARANGO L ([id number])[facility] ([facility])[address] [place] [address] CO2 [Moles/Vol] 21 mmol/L Normal 21-32 [facility] Comment on above: Performed By: #### 2 4323-8 ####FLORINDA TARANGO L ([id number])[facility] ([facility])[address] [place] [address] Creatinine [Mass/Vol] 3.55 mg/dL High 0.50-1.30 [facility] Comment on above: Performed By: #### 2 4323-8 ####FLORINDA TARANGO L ([id number])[facility] ([facility])[address] [place] [address] Glomerular filtration rate/1.73 sq M.predicted 19 mL/min/1.73m*2 Low >60 [facility] Comment on above: Result Comment: Calc ulations of estimated GFR are performed using the 2020 CKD-EPI Study Refit equation without the race variable for the IDMS-Traceable creatinine methods.https://jasn.asnjournals.org/content//ASN. 3634217756 Performed By: #### 2 4323-8 ####FLORINDA TARANGO L ([id number])[facility] ([facility])[address] [place] [address] Glucose [Mass/Vol] 79 mg/dL Normal 74-99 [facility] Comment on above: Performed By: #### 2 4323-8 ####FOLRINDA Monroe ([id number])[facility] ([facility])[address] [place] [address] Potassium [Moles/Vol] 5.2 mmol/L Normal 3.5-5.3 [facility] Comment on above: Performed By: #### 2 4323-8 ####FLORINDA TARANGO L ([id number])[facility] ([facility])[address] [place] [address] Protein [Mass/Vol] 4.6 g/dL Low 6.4-8.2 [facility] Comment on above: Performed By: #### 2 4323-8 ####FLORINDA TARANGO L ([id number])[facility] ([facility])[address] [place] [address] Sodium [Moles/Vol] 137 mmol/L Normal 136-145 [facility] Comment on above: Performed By: #### 2 4323-8 ####FLORINDA TARANGO L ([id number])[facility] ([facility])[address] [place] [address] Urea nitrogen [Mass/Vol] 46 mg/dL High 6-23 [facility] Comment on above: Performed By: #### 2 4323-8 ####FLORINDA TARANGO L ([id number])[facility] ([facility])[address] [place] [address] ECG 12-LEADon 06-14-2024 ECG 12-LEAD Ventricular Rate 99 Atrial Rate 99 P-R Interval 168 QRS Duration 160 Q-T Interval 402 QTC Calculation(Bazett) 515 P Afton 74 R Afton -83 T Afton 55 QRS Count 16 Q Onset 220 P Onset 136 P Offset 198 T Offset 421 QTC Fredericia 475 Diagnosis Normal sinus rhythm Right bundle branch block Left anterior fascicular block Bifascicular block Abnormal ECG When compared with ECG of 14-JUN-2024 22:37, No significant change was found Confirmed by Omari Franco ([id number]) on 06/24/2024 8:23:22 AM Normal [facility] ECG 12-LEAD Ventricular Rate 73 Atrial Rate 73 P-R Interval 144 QRS Duration 170 Q-T Interval 426 QTC Calculation(Bazett) 469 P Afton -4 R Afton -79 T Afton 30 QRS Count 12 Q Onset 217 P Onset 145 P Offset 195 T Offset 430 QTC Fredericia 455 Diagnosis Sinus rhythm with Premature atrial complexes Right bundle branch block Left anterior fascicular block Bifascicular block Abnormal ECG When compared with ECG of 14-JUN-2024 10:31, Premature atrial complexes are now Present Confirmed by Tucker Francoo ([id number]) on 06/24/2024 8:23:15 AM Normal [facility] ECG 12-LEAD Ventricular Rate 83 Atrial Rate 83 P-R Interval 120 QRS Duration 164 Q-T Interval 408 QTC Calculation(Bazett) 479 P Afton 35 R Afton -77 T Afton 18 QRS Count 14 Q Onset 221 P Onset 161 P Offset 199 T Offset 425 QTC Fredericia 454 Diagnosis Normal sinus rhythm Right bundle branch block Left anterior fascicular block Bifascicular block Abnormal ECG When compared with ECG of 10-JUN-2024 04:04, Nonspecific T wave abnormality has replaced inverted T waves in Anterior leads Confirmed by Salvador Omari ([id number]) on 06/24/2024 8:23:05 AM Normal [facility] Gas panel (BldMV)on 06-14-20 24 Anion gap 4 (BldMV) [Moles/Vol] 12 mmo/L Normal 10-25 [facility] Comment on above: Performed By: #### 5 1973-03 ####FLORINDA Monroe ([id number])[facility] ([facility])[address] [place] [address] Base excess Calc (BldMV) [Moles/Vol] -5.2 mmol/L Low -2.0-3.0 [facility] Comment on above: Performed By: #### 5 1973-03 ####FLORINDA Monroe ([id number])[facility] ([facility])[address] [place] [address] Calcium.ionized (BldMV) [Moles/Vol] 1.26 mmol/L Normal 1.10-1.33 [facility] Comment on above: Performed By: #### 5 1973-03 ####FLORINDA TARANGO L ([id number])[facility] ([facility])[address] [place] [address] Chloride [Moles/Vol] 104 mmol/L Normal 98-107 [facility] Comment on above: Performed By: #### 5 1973-03 ####FLORINDA TARANGO L ([id number])[facility] ([facility])[address] [place] [address] CO2 (BldMV) [Partial pressure] 41 mm Hg Normal 41-51 [facility] Comment on above: Performed By: #### 5 1973-03 ####FLORINDA TARANGO L ([id number])[facility] ([facility])[address] [place] [address] Glucose [Mass/Vol] 179 mg/dL High 74-99 [facility] Comment on above: Performed By: #### 5 1973-03 ####FLORINDA TARANGO L ([id number])[facility] ([facility])[address] [place] [address] HCO3 (BldMV) [Moles/Vol] 20.6 mmol/L Low 22.0-26.0 [facility] Comment on above: Performed By: #### 5 1973-03 ####FLORINDA TARANGO L ([id number])[facility] ([facility])[address] [place] [address] Hematocrit Est (Bld) [Volume fraction] 22.0 % Low 41.0-52.0 [facility] Comment on above: Performed By: #### 5 1973-03 ####FLORINDA TARANGO L ([id number])[facility] ([facility])[address] [place] [address] Hemoglobin (Bld) [Mass/Vol] 7.2 g/dL Low 13.5-17.5 [facility] Comment on above: Performed By: #### 1973-03 ####FLORINDA TARANGO L ([id number])[facility] ([facility])[address] [place] [address] Inhaled oxygen concentration 35 % Normal [facility] Comment on above: Performed By: #### 5 1973-03 ####FLORINDA Monroe ([id number])[facility] ([facility])[address] [place] [address]226 Lactate (BldMV) [Moles/Vol] 1.2 mmol/L Normal 0.4-2.0 [facility] Comment on above: Performed By: #### 5 1973-03 ####FLORINDA Monroe ([id number])[facility] ([facility])[address] [place] [address] Oxygen (BldMV) [Partial pressure] 39 mm Hg Normal 35-45 [facility] Comment on above: Performed By: #### 5 1973-03 ####FLORINDA Monroe ([id number])[facility] ([facility])[address] [place] [address] Oxyhemoglobin (BldMV) [Mass fraction] 70.2 % Normal 45.0-75.0 [facility] Comment on above: Performed By: #### 5 1973-03 ####FLORINDA Monroe ([id number])[facility] ([facility])[address] [place] [address] 13384 pH (BldMV) 7.31 pH Low 7.33-7.43 [facility] Comment on above: Performed By: #### 5 1973-03 ####FLORINDA Monroe ([id number])[facility] ([facility])[address] [place] [address] Potassium (BldMV) [Moles/Vol] 4.6 mmol/L Normal 3.5-5.3 [facility] Comment on above: Performed By: #### 5 1973-03 ####FLORINDA Monroe ([id number])[facility] ([facility])[address] [place] [address] Sodium (BldMV) [Moles/Vol] 132 mmol/L Low 136-145 [facility] Comment on above: Performed By: #### 5 1973-03 ####FLORINDA TARANGO L ([id number])[facility] ([facility])[address] [place] [address] Anion gap 4 (BldMV) [Moles/Vol] 13 mmo/L Normal 10-25 [facility] Comment on above: Performed By: #### 5 1973-03 ####FLORINDA TARANGO L ([id number])[facility] ([facility])[address] [place] [address] Base excess Calc (BldMV) [Moles/Vol] -6.9 mmol/L Low -2.0-3.0 [facility] Comment on above: Performed By: #### 5 1973-03 ####FLORINDA TARANGO L ([id number])[facility] ([facility])[address] [place] [address] Calcium.ionized (BldMV) [Moles/Vol] 1.25 mmol/L Normal 1.10-1.33 [facility] Comment on above: Performed By: #### 5 1973-03 ####FLORINDA TARANGO L ([id number])[facility] ([facility])[address] [place] [address] Chloride [Moles/Vol] 105 mmol/L Normal 98-107 [facility] Comment on above: Performed By: #### 5 1973-03 ####FLORINDA TARANGO L ([id number])[facility] ([facility])[address] [place] [address] CO2 (BldMV) [Partial pressure] 44 mm Hg Normal 41-51 [facility] Comment on above: Performed By: #### 5 1973-03 ####FLORINDA TARANGO L ([id number])[facility] ([facility])[address] [place] [address] Glucose [Mass/Vol] 104 mg/dL High 74-99 [facility] Comment on above: Performed By: #### 5 1973-03 ####FLORINDA TARANGO L ([id number])[facility] ([facility])[address] [place] [address] HCO3 (BldMV) [Moles/Vol] 19.7 mmol/L Low 22.0-26.0 [facility] Comment on above: Performed By: #### 5 1973-03 ####FLORINDA Monroe ([id number])[facility] ([facility])[address] [place] [address] Hematocrit Est (Bld) [Volume fraction] 22.0 % Low 41.0-52.0 [facility] Comment on above: Performed By: #### 5 1973-03 ####FLORINDA Monroe ([id number])[facility] ([facility])[address] [place] [address]90 Hemoglobin (Bld) [Mass/Vol] 7.4 g/dL Low 13.5-17.5 [facility] Comment on above: Performed By: #### 1973-03 ####FLORINDA Monroe ([id number])[facility] ([facility])[address] [place] [address] 16575 Inhaled oxygen concentration 41 % Normal [facility] Comment on above: Performed By: #### 5 1973-03 ####FLORINDA Monroe ([id number])[facility] ([facility])[address] [place] [address] 29539 Lactate (BldMV) [Moles/Vol] 0.6 mmol/L Normal 0.4-2.0 [facility] Comment on above: Performed By: #### 5 1973-03 ####FLORINDA Monroe ([id number])[facility] ([facility])[address] [place] [address] Oxygen (BldMV) [Partial pressure] 42 mm Hg Normal 35-45 [facility] Comment on above: Performed By: #### 1973-03 ####FLORINDA Monroe ([id number])[facility] ([facility])[address] [place] [address] Oxyhemoglobin (BldMV) [Mass fraction] 71.3 % Normal 45.0-75.0 [facility] Comment on above: Performed By: #### 5 1973-03 ####FLORINDA Monroe ([id number])[facility] ([facility])[address] [place] [address] pH (BldMV) 7.26 pH Low 7.33-7.43 [facility] Comment on above: Performed By: #### 5 1973-03 ####FLORINDA Monroe ([id number])[facility] ([facility])[address] [place] [address]86 Potassium (BldMV) [Moles/Vol] 5.3 mmol/L Normal 3.5-5.3 [facility] Comment on above: Performed By: #### 5 1973-03 ####FLORINDA Monroe ([id number])[facility] ([facility])[address] [place] [address]405 Sodium (BldMV) [Moles/Vol] 132 mmol/L Low 136-145 [facility] Comment on above: Performed By: #### 5 1973-03 ####FLORINDA Monroe ([id number])[facility] ([facility])[address] [place] [address] Gas panel (BldV)on 4 Anion gap 4 (BldV) [Moles/Vol] 13.0 mmol/L Normal 10.0-25.0 [facility] Comment on above: Performed By: #### 2 4339-4 ####FLORINDA Monroe ([id number])[facility] ([facility])[address] [place] [address] 58149 Base excess Calc (BldV) [Moles/Vol] -6.1000 mmol/L Low -2.0-3.0 [facility] Comment on above: Performed By: #### 2 4339-4 ####FLORINDA Monroe ([id number])[facility] ([facility])[address] [place] [address] 69023 Calcium.ionized (BldV) [Moles/Vol] 1.28 mmol/L Normal 1.10-1.33 [facility] Comment on above: Performed By: #### 2 4339-4 ####FLORINDA Monroe ([id number])[facility] ([facility])[address] [place] [address] Chloride (BldV) [Moles/Vol] 104 mmol/L Normal 98-107 [facility] Comment on above: Performed By: #### 2 4339-4 ####FLORINDA Monroe ([id number])[facility] ([facility])[address] [place] [address] 52927 CO2 (BldV) [Partial pressure] 49 mm Hg Normal 41-51 [facility] Comment on above: Performed By: #### 2 4339-4 ####FLORINDA Monroe ([id number])[facility] ([facility])[address] [place] [address] 83808 Glucose [Mass/Vol] 83 mg/dL Normal 74-99 [facility] Comment on above: Performed By: #### 2 4339-4 ####FLORINDA Monroe ([id number])[facility] ([facility])[address] [place] [address] 12233 HCO3 (Bld) [Moles/Vol] 21.0 mmol/L Low 22.0-26.0 [facility] Comment on above: Performed By: #### 2 4339-4 ####FLORINDA Monroe ([id number])[facility] ([facility])[address] [place] [address] 20830 Hematocrit Est (Bld) [Volume fraction] 25.0 % Low 41.0-52.0 [facility] Comment on above: Performed By: #### 2 4339-4 ####FLORINDA Monroe ([id number])[facility] ([facility])[address] [place] [address] 91248 Hemoglobin (Bld) [Mass/Vol] 8.2 g/dL Low 13.5-17.5 [facility] Comment on above: Performed By: #### 2 4339-4 ####FLORINDA Monroe ([id number])[facility] ([facility])[address] [place] [address] Inhaled oxygen concentration 36 % Normal [facility] Comment on above: Performed By: #### 2 4339-4 ####FLORINDA Monroe ([id number])[facility] ([facility])[address] [place] [address] 58349 Lactate (BldV) [Moles/Vol] 0.9 mmol/L Normal 0.4-2.0 [facility] Comment on above: Performed By: #### 2 4339-4 ####FLORINDA Monroe ([id number])[facility] ([facility])[address] [place] [address] 59703 Oxygen (BldV) [Partial pressure] 36 mm Hg Normal 35-45 [facility] Comment on above: Performed By: #### 2 4339-4 ####FLORINDA Monroe ([id number])[facility] ([facility])[address] [place] [address] 61938 Oxygen saturation in Venous blood 64 % Normal 45-75 [facility] Comment on above: Performed By: #### 2 4339-4 ####FLORINDA Monroe ([id number])[facility] ([facility])[address] [place] [address] 45342 Oxyhemoglobin (BldV) [Mass fraction] 62.6 % Normal 45.0-75.0 [facility] Comment on above: Performed By: #### 2 4339-4 ####FLORINDA Monroe ([id number])[facility] ([facility])[address] [place] [address] 77661 pH (BldV) 7.24 [pH] Critically low 7.33-7.43 [facility] Comment on above: Performed By: #### 2 4339-4 ####FLORINDA Monroe ([id number])[facility] ([facility])[address] [place] [address] 42429 Potassium (BldV) [Moles/Vol] 5.4 mmol/L High 3.5-5.3 [facility] Comment on above: Performed By: #### 2 4339-4 ####FLORINDA Monroe ([id number])[facility] ([facility])[address] [place] [address] Sodium (BldV) [Moles/Vol] 133 mmol/L Low 136-145 [facility] Comment on above: Performed By: #### 2 4339-4 ####FLORINDA Monroe ([id number])[facility] ([facility])[address] [place] [address] Glucose Test strip manual (B ld) [Mass/Vol]on 06-14-2024 Glucose [Mass/Vol] 110 mg/dL High 74-99 [facility] Comment on above: Performed By: #### 2 341-6 ####FLORINDA Monroe ([id number])[facility] ([facility])[address] [place] [address] Glucose [Mass/Vol] 98 mg/dL Normal 74-99 [facility] Comment on above: Performed By: #### 2 341-6 ####FLORINDA Monroe ([id number])[facility] ([facility])[address] [place] [address] Glucose [Mass/Vol] 84 mg/dL Normal 74-99 [facility] Comment on above: Performed By: #### 2 341-6 ####FLORINDA Monroe ([id number])[facility] ([facility])[address] [place] [address] Lactateon 06-14-2024 Lactate [Moles/Vol] 1.1 mmol/L Normal 0.4-2.0 [facility] Comment on above: Order Comment: Venip uncture immediately after or during the administration of Metamizole may lead to falsely low results. Testing should be performed immediatelyprior to Metamizole dosing. Performed By: #### 2 524-7 ####FLORINDA Monroe ([id number])[facility] ([facility])[address] [place] [address] Magnesiumon 06-14-2024 Magnesium [Mass/Vol] 1.71 mg/dL Normal 1.60-2.40 [facility] Comment on above: Performed By: #### 1 9123-9 ####FLORINDA Monroe ([id number])[facility] ([facility])[id number] [place] [address] Magnesium [Mass/Vol] 1.66 mg/dL Normal 1.60-2.40 [facility] [facility] Comment on above: Performed By: #### 1 9123-9 ####FLORINDA Monroe ([id number])[facility] ([facility])[id number] [place] [address] 15234 PATH REVIEW-IMMUNOHEMATOLOGY on 06-14-2024 PATH REV-IMMUNOHEMATOLOG Y-PR30 SEE COMMENT Normal [facility] Comment on above: Order Comment: Revie wed and approved by REBECCA TRAN on 06/15/24 at 3:09 PM. Result Comment: Anti body detection screen is positive. Antibody identification panel was performed.The autocontrol is negative.Previously identified alloantibody anti-D is reacting.All other common clinically significant alloantibodies have been ruled out.Full crossmatched D-antigen negative donor RBC units should be selected for transfusion for this patient. Performed By: #### P R30 ####FLORINDA Monroe ([id number])[facility] ([facility])[id number] [place] [address]444 PT and aPTT panel Coag (PPP) on 06-14-2024 aPTT Coag (PPP) [Time] 40 s High 27-38 [facility] Comment on above: Order Comment: The A PTT is no longer used for monitoring Unfractionated Heparin Therapy. For monitoring Heparin Therapy, use the Heparin Assay. Performed By: #### 3 4529-8 ####FLORINDA Monroe ([id number])[facility] ([facility])[id number] [place] [address] 13130 INR Coag (PPP) [Relative time] 5.2 Critically high 0.9-1.1 [facility] Comment on above: Order Comment: The A PTT is no longer used for monitoring Unfractionated Heparin Therapy. For monitoring Heparin Therapy, use the Heparin Assay. Performed By: #### 3 4529-8 ####FLORINDA Monroe ([id number])[facility] ([facility])[address] [place] [address] PT Coag (PPP) [Time] 59.6 s Critically high 9.8-12.8 [facility] Comment on above: Order Comment: The A PTT is no longer used for monitoring Unfractionated Heparin Therapy. For monitoring Heparin Therapy, use the Heparin Assay. Performed By: #### 3 4529-8 ####FLORINDA Monroe ([id number])[facility] ([facility])[address] [place] [address] 02129 aPTT Coag (PPP) [Time] 41 s High 27-38 [facility] Comment on above: Order Comment: The A PTT is no longer used for monitoring Unfractionated Heparin Therapy. For monitoring Heparin Therapy, use the Heparin Assay. Performed By: #### 3 4529-8 ####FLORINDA Monroe ([id number])[facility] ([facility])[address] [place] [address] 09664 INR Coag (PPP) [Relative time] 5.3 Critically high 0.9-1.1 [facility] Comment on above: Order Comment: The A PTT is no longer used for monitoring Unfractionated Heparin Therapy. For monitoring Heparin Therapy, use the Heparin Assay. Performed By: #### 3 4529-8 ####FLORINDA Monroe ([id number])[facility] ([facility])[address] [place] [address] 31751 PT Coag (PPP) [Time] 61.0 s Critically high 9.8-12.8 [facility] Comment on above: Order Comment: The A PTT is no longer used for monitoring Unfractionated Heparin Therapy. For monitoring Heparin Therapy, use the Heparin Assay. Performed By: #### 3 4529-8 ####FLORINDA Monroe ([id number])[facility] ([facility])[address] [place] [address] Renal function 2000 panelon 06-14-2024 Albumin BCP dye [Mass/Vol] 2.9 g/dL Low 3.4-5.0 [facility] Comment on above: Performed By: #### 2 4362-6 ####FLORINDA ROSEER L ([id number])[facility] ([facility])[address] [place] [address] Anion gap [Moles/Vol] 16 mmol/L Normal 10-20 [facility] Comment on above: Performed By: #### 2 4362-6 ####FLORINDA HYDEMOTZER L ([id number])[facility] ([facility])[address] [place] [address] Calcium [Mass/Vol] 8.1 mg/dL Low 8.6-10.6 [facility] Comment on above: Performed By: #### 2 4362-6 ####FLORINDA ROSEER L ([id number])[facility] ([facility])[address] [place] [address] Chloride [Moles/Vol] 106 mmol/L Normal 98-107 [facility] Comment on above: Performed By: #### 2 4362-6 ####FLORINDA HYDEMOTZER L ([id number])[facility] ([facility])[address] [place] [address] CO2 [Moles/Vol] 20 mmol/L Low 21-32 [facility] Comment on above: Performed By: #### 2 4362-6 ####FLORINDA HYDEMOTZER L ([id number])[facility] ([facility])[address] [place] [address] Creatinine [Mass/Vol] 3.47 mg/dL High 0.50-1.30 [facility] Comment on above: Performed By: #### 2 4362-6 ####FLORINDA HYDEMOTZER L ([id number])[facility] ([facility])[address] [place] [address] Glomerular filtration rate/1.73 sq M.predicted 20 mL/min/1.73m*2 Low >60 [facility] Comment on above: Result Comment: Calc ulations of estimated GFR are performed using the 2020 CKD-EPI Study Refit equation without the race variable for the IDMS-Traceable creatinine methods.https://jasn.asnjournals.org/content//ASN. 3606868227 Performed By: #### 2 4362-6 ####FLORINDA Monroe ([id number])[facility] ([facility])[address] [place] [address] Glucose [Mass/Vol] 149 mg/dL High 74-99 [facility] Comment on above: Performed By: #### 2 4362-6 ####FLORINDA Monroe ([id number])[facility] ([facility])[address] [place] [address] Phosphate [Mass/Vol] 5.8 mg/dL High 2.5-4.9 [facility] Comment on above: Result Comment: The performance characteristics of phosphorus testing in heparinized plasma have been validated by the individual laboratory site where testing is performed. Testing on heparinized plasma is not approved by the FDA; however, such approval is not necessary. Performed By: #### 2 4362-6 ####FLORINDA Monroe ([id number])[facility] ([facility])[address] [place] [address] Potassium [Moles/Vol] 4.7 mmol/L Normal 3.5-5.3 [facility] Comment on above: Performed By: #### 2 4362-6 ####FLORINDA Monroe ([id number])[facility] ([facility])[address] [place] [address] Sodium [Moles/Vol] 137 mmol/L Normal 136-145 [facility] Comment on above: Performed By: #### 2 4362-6 ####FLORINDA TARANGO L ([id number])[facility] ([facility])[address] [place] [address] Urea nitrogen [Mass/Vol] 48 mg/dL High 6-23 [facility] Comment on above: Performed By: #### 2 4362-6 ####FLORINDA TARANGO L ([id number])[facility] ([facility])[address] [place] [address] Albumin BCP dye [Mass/Vol] 2.7 g/dL Low 3.4-5.0 [facility] Comment on above: Performed By: #### 2 4362-6 ####FLORINDA Monroe ([id number])[facility] ([facility])[address] [place] [address] Anion gap [Moles/Vol] 14 mmol/L Normal 10-20 [facility] Comment on above: Performed By: #### 2 4362-6 ####FLORINDA Monroe ([id number])[facility] ([facility])[address] [place] [address] Calcium [Mass/Vol] 8.3 mg/dL Low 8.6-10.6 [facility] Comment on above: Performed By: #### 2 4362-6 ####FLORINDA Monroe ([id number])[facility] ([facility])[address] [place] [address] Chloride [Moles/Vol] 105 mmol/L Normal 98-107 [facility] Comment on above: Performed By: #### 2 4362-6 ####FLORINDA Monroe ([id number])[facility] ([facility])[address] [place] [address] CO2 [Moles/Vol] 21 mmol/L Normal 21-32 [facility] Comment on above: Performed By: #### 2 4362-6 ####FLORINDA Monroe ([id number])[facility] ([facility])[address] [place] [address] Creatinine [Mass/Vol] 3.68 mg/dL High 0.50-1.30 [facility] Comment on above: Performed By: #### 2 4362-6 ####FLORINDA Monroe ([id number])[facility] ([facility])[address] [place] [address] Glomerular filtration rate/1.73 sq M.predicted 19 mL/min/1.73m*2 Low >60 [facility] Comment on above: Result Comment: Calc ulations of estimated GFR are performed using the 2020 CKD-EPI Study Refit equation without the race variable for the IDMS-Traceable creatinine methods.https://jasn.asnjournals.org/content//ASN. 2482310157 Performed By: #### 2 4362-6 ####FLORINDA Monroe ([id number])[facility] ([facility])[address] [place] [address] Glucose [Mass/Vol] 81 mg/dL Normal 74-99 [facility] Comment on above: Performed By: #### 2 4362-6 ####FLORINDA Monroe ([id number])[facility] ([facility])[address] [place] [address] Phosphate [Mass/Vol] 5.0 mg/dL High 2.5-4.9 [facility] Comment on above: Result Comment: The performance characteristics of phosphorus testing in heparinized plasma have been validated by the individual laboratory site where testing is performed. Testing on heparinized plasma is not approved by the FDA; however, such approval is not necessary. Performed By: #### 2 4362-6 ####FLORINDA Monroe ([id number])[facility] ([facility])[address] [place] [address] Potassium [Moles/Vol] 5.1 mmol/L Normal 3.5-5.3 [facility] Comment on above: Performed By: #### 2 4362-6 ####FLORINDA Monroe ([id number])[facility] ([facility])[address] [place] [address] Sodium [Moles/Vol] 135 mmol/L Low 136-145 [facility] Comment on above: Performed By: #### 2 4362-6 ####FLORINDA Monroe ([id number])[facility] ([facility])[address] [place] [address] Urea nitrogen [Mass/Vol] 47 mg/dL High 6-23 [facility] Comment on above: Performed By: #### 2 4362-6 ####FLORINDA Monroe ([id number])[facility] ([facility])[address] [place] [address] Troponin I.cardiac panelon 0 06-14-2024 Tropinin I.cardiac panel High sensitivity method 26259 ng/L Critically high 0-53 [facility] Comment on above: Order Comment: Less than 99th percentile of normal range cutoff-Female and children under 18 years old <35 ng/L; Male <54 ng/L: NegativeRepeat testing should be performed if clinically indicated.Female and children under 18 years old 35-120 ng/L; Male 54-120 ng/L:Consistent with possible cardiac damage and possible increased clinicalrisk. Serial measurements may help to assess extent of myocardial damage.>120 ng/L: Consistent with cardiac damage, increased clinical risk andmyocardial infarction. Serial measurements may help assess extent ofmyocardial damage.NOTE: Children less than 1 year old may have higher baseline troponinlevels and results should be interpreted in conjunction with the overallclinical context.NOTE: Troponin I testing is performed using a differenttesting methodology at [facility] than at [facility]. Direct result comparisons should onlybe made within the same method. Result Comment: Prev ious result verified on 06/14/2024 1147 on specimen/case [id number] called with component [facility] for procedure Troponin I, High Sensitivity with value 21,825 ng/L. Performed By: #### 8 9577-1 ####FLORINDA Monroe ([id number])[facility] ([facility])[address] [place] [address] Tropinin I.cardiac panel High sensitivity method 52744 ng/L Critically high 0-53 [facility] Comment on above: Order Comment: Less than 99th percentile of normal range cutoff-Female and children under 18 years old <35 ng/L; Male <54 ng/L: NegativeRepeat testing should be performed if clinically indicated.Female and children under 18 years old 35-120 ng/L; Male 54-120 ng/L:Consistent with possible cardiac damage and possible increased clinicalrisk. Serial measurements may help to assess extent of myocardial damage.>120 ng/L: Consistent with cardiac damage, increased clinical risk andmyocardial infarction. Serial measurements may help assess extent ofmyocardial damage.NOTE: Children less than 1 year old may have higher baseline troponinlevels and results should be interpreted in conjunction with the overallclinical context.NOTE: Troponin I testing is performed using a differenttesting methodology at [facility] than at [facility]. Direct result comparisons should onlybe made within the same method. Performed By: #### 8 9577-1 ####FLORINDA Monroe ([id number])[facility] ([facility])[address] [place] [address] Urinalysis complete W Reflex Culture panel (U)on 06-14-2024 Appearance (U) Ex.Turbid Normal Clear [facility] Comment on above: Performed By: #### 5 8077-9 ####FLORINDA TARANGO L ([id number])[facility] ([facility])[address] [place] [address] Bilirubin (U) [Mass/Vol] Negative Normal NEGATIVE [facility] Comment on above: Performed By: #### 5 8077-9 ####FLORINDA HYDEMOPRIETO L ([id number])[facility] ([facility])[address] [place] [address] Color (U) Light-[place] Normal Light-Yellow , Yellow, Dark-Yellow [facility] Comment on above: Performed By: #### 5 8077-9 ####FLORINDA HYDEMOTZER L ([id number])[facility] ([facility])[address] [place] [address] Glucose Auto test strip (U) [Mass/Vol] Normal Normal Normal [facility] Comment on above: Performed By: #### 5 8077-9 ####FLORINDA SCHMOTZER L ([id number])[facility] ([facility])[address] [place] [address] Ketones (U) [Mass/Vol] Negative Normal NEGATIVE [facility] Comment on above: Performed By: #### 5 8077-9 ####FLORINDA SCHMOTZER L ([id number])[facility] ([facility])[address] [place] [address] Leukocyte esterase Auto test strip Ql (U) 500 [place]/???L Abnormal NEGATIVE [facility] Comment on above: Performed By: #### 5 8077-9 ####FLORINDA Monroe ([id number])[facility] ([facility])[address] [place] [address]90[address] Nitrite Auto test strip Ql (U) Negative Normal NEGATIVE [facility] Comment on above: Performed By: #### 5 8077-9 ####FLORINDA Monroe ([id number])[facility] ([facility])[address] [place] [address] 634[address] pH (U) 6.0 [pH] Normal 5.0, 5.5, 6.0, 6.5, 7.0, 7.5, 8.0 [facility] Comment on above: Performed By: #### 5 8077-9 ####FLORINDA Monroe ([id number])[facility] ([facility])[address] [place] [address]3679 Protein (U) [Mass/Vol] 200 (2+) Abnormal NEGATIVE, 10 (TRACE), 20 (TRACE) [facility] Comment on above: Performed By: #### 5 8077-9 ####FLORINDA Monroe ([id number])[facility] ([facility])[address] [place] [address] 42950 RBC (U) [#/Vol] 1.0 (3+) Abnormal NEGATIVE [facility] Comment on above: Performed By: #### 5 8077-9 ####FLORINDA Monroe ([id number])[facility] ([facility])[address] [place] [address] 13283 Specific gravity (U) [Rel density] 1.019 Normal 1.005-1.035 [facility] Comment on above: Performed By: #### 5 8077-9 ####FLORIDNA Monroe ([id number])[facility] ([facility])[address] [place] [address] Urobilinogen (U) [Mass/Vol] Normal Normal Normal [facility] Comment on above: Performed By: #### 5 8077-9 ####FLORINAD TARANGO L ([id number])[facility] ([facility])[address] [place] [address] Urinalysis microscopic panel Auto Ql (U)on 06-14-2024 Epithelial cells.squamous Auto (Urine sed) [#/Area] 1-9 (SPARSE) Normal Reference range not established. [facility] Comment on above: Performed By: #### 5 3315-8 ####FLORINDA HYDEMOTZER L ([id number])[facility] ([facility])[address] [place] [address] 829[address] Leukocyte clumps Auto (Urine sed) [#/Area] FEW Normal Reference range not established. [facility] Comment on above: Performed By: #### 5 3315-8 ####FLORINDA WESTONTZER L ([id number])[facility] ([facility])[address] [place] [address] 69462 RBC Auto (Urine sed) [#/Area] >20 Abnormal NONE, 1-2, 3-5 [facility] Comment on above: Performed By: #### 5 3315-8 ####FLORINDA ROSEER L ([id number])[facility] ([facility])[address] [place] [address] 10263 WBC Auto (Urine sed) [#/Area] >50 Abnormal 1-5, NONE [facility] Comment on above: Performed By: #### 5 3315-8 ####FLORINDA ROSEER L ([id number])[facility] ([facility])[address] [place] [address] 17768 VAS US UPPER EXTREMITY VENO US DUPLEX BILATERALon 06-14-2024 VAS US UPPER EXTREMITY VENOUS DUPLEX BILATERAL Normal [facility] CBC panel Auto (Bld)on 06-11 Erythrocyte distribution width (RBC) [Ratio] 15.5 % High 11.5-14.5 [facility] Comment on above: Performed By: #### 5 8410-2 ####FLORINDA HYDEMOTZER L ([id number])[facility] ([facility])[address] [place] [address] Hematocrit (Bld) [Volume fraction] 26.2 % Low 41.0-52.0 [facility] Comment on above: Performed By: #### 5 8410-2 ####FLORINDA Monroe ([id number])[facility] ([facility])[address] [place] [address] Hemoglobin (Bld) [Mass/Vol] 8.1 g/dL Low 13.5-17.5 [facility] Comment on above: Performed By: #### 5 8410-2 ####FLORINDA Monroe ([id number])[facility] ([facility])[address] [place] [address] 57551 MCH (RBC) [Entitic mass] 28.9 pg Normal 26.0-34.0 [facility] Comment on above: Performed By: #### 5 8410-2 ####FLORINDA Monroe ([id number])[facility] ([facility])[address] [place] [address] 51631 MCHC (RBC) [Mass/Vol] 30.9 g/dL Low 32.0-36.0 [facility] Comment on above: Performed By: #### 5 8410-2 ####FLORINDA Monroe ([id number])[facility] ([facility])[address] [place] [address] 32273 MCV (RBC) [Entitic vol] 94 fL Normal 80-100 [facility] Comment on above: Performed By: #### 5 8410-2 ####FLORINDA Monroe ([id number])[facility] ([facility])[address] [place] [address] 36389 Nucleated RBC/100 WBC (Bld) [Ratio] 0.0 /100 WBCs Normal 0.0-0.0 [facility] Comment on above: Performed By: #### 5 8410-2 ####FLORINDA Monroe ([id number])[facility] ([facility])[address] [place] [address] 83679 Platelets (Bld) [#/Vol] 105 x10*3/uL Low 150-450 [facility] Comment on above: Performed By: #### 5 8410-2 ####FLORINDA Monroe ([id number])[facility] ([facility])[address] [place] [address] RBC (Bld) [#/Vol] 2.80 x10*6/uL Low 4.50-5.90 [facility] Comment on above: Performed By: #### 5 8410-2 ####FLORINDA Monroe ([id number])[facility] ([facility])[address] [place] [address] WBC (Bld) [#/Vol] 5.4 x10*3/uL Normal 4.4-11.3 [facility] Comment on above: Performed By: #### 5 8410-2 ####FLORINDA Monroe ([id number])[facility] ([facility])[address] [place] [address] Clostridioides difficile tox in A+B tcdA+tcdB geneson 06-11-2024 C. difficile toxin A+B tcdA+tcdB genes COBY+probe Ql (Stl) Clostridioides difficile toxin A+B tcdA+tcdB genes Not Detected Normal Not Detected [facility] Comment on above: Order Comment: This test is an FDA-cleared real-time PCR assay for detection of toxigenic C. difficile DNA from unprocessed liquid or unformed stool specimens that have not undergone nucleic acid extraction in symptomatic patients with potential C. difficile infection (CDI). A positive result may indicate colonization, and clinical assessment is required for the diagnosis of CDI. This test cannot be performed on formed stools or used as a test of cure, and should not be performed more than once per 7 days. Performed By: #### 8 0685-1 ####FLORINDA Monroe ([id number])[facility] ([facility])[address] [place] [address] Magnesiumon 06-11-2024 Magnesium [Mass/Vol] 1.93 mg/dL Normal 1.60-2.40 [facility] Comment on above: Performed By: #### 1 9123-9 ####FLORINDA Monroe ([id number])[facility] ([facility])[address] [place] [address] Renal function 2000 panelon 06-11-2024 Albumin BCP dye [Mass/Vol] 3.1 g/dL Low 3.4-5.0 [facility] Comment on above: Performed By: #### 2 4362-6 ####FLORINDA Monroe ([id number])[facility] ([facility])[address] [place] [address] Anion gap [Moles/Vol] 11 mmol/L Normal 10-20 [facility] Comment on above: Performed By: #### 2 4362-6 ####FLORINDA Monroe ([id number])[facility] ([facility])[address] [place] [address] Calcium [Mass/Vol] 9.4 mg/dL Normal 8.6-10.6 [facility] Comment on above: Performed By: #### 2 4362-6 ####FLORINDA Monroe ([id number])[facility] ([facility])[address] [place] [address] Chloride [Moles/Vol] 105 mmol/L Normal 98-107 [facility] Comment on above: Performed By: #### 2 4362-6 ####FLORINDA Monroe ([id number])[facility] ([facility])[address] [place] [address] CO2 [Moles/Vol] 25 mmol/L Normal 21-32 [facility] Comment on above: Performed By: #### 2 4362-6 ####FLORINDA Monroe ([id number])[facility] ([facility])[address] [place] [address] Creatinine [Mass/Vol] 2.42 mg/dL High 0.50-1.30 [facility] Comment on above: Performed By: #### 2 4362-6 ####FLORINDA TARANGO L ([id number])[facility] ([facility])[address] [place] [address] Glomerular filtration rate/1.73 sq M.predicted 31 mL/min/1.73m*2 Low >60 [facility] Comment on above: Result Comment: Calc ulations of estimated GFR are performed using the 2020 CKD-EPI Study Refit equation without the race variable for the IDMS-Traceable creatinine methods.https://jasn.asnjournals.org/content//ASN. 7636500975 Performed By: #### 2 4362-6 ####FLORINDA Monroe ([id number])[facility] ([facility])[address] [place] [address] Glucose [Mass/Vol] 89 mg/dL Normal 74-99 [facility] Comment on above: Performed By: #### 2 4362-6 ####FLORINDA Monroe ([id number])[facility] ([facility])[address] [place] [address] Phosphate [Mass/Vol] 3.3 mg/dL Normal 2.5-4.9 [facility] Comment on above: Result Comment: The performance characteristics of phosphorus testing in heparinized plasma have been validated by the individual laboratory site where testing is performed. Testing on heparinized plasma is not approved by the FDA; however, such approval is not necessary. Performed By: #### 2 4362-6 ####FLORINDA Monroe ([id number])[facility] ([facility])[address] [place] [address] Potassium [Moles/Vol] 4.1 mmol/L Normal 3.5-5.3 [facility] Comment on above: Performed By: #### 2 4362-6 ####FLORINDA Monroe ([id number])[facility] ([facility])[address] [place] [address] Sodium [Moles/Vol] 137 mmol/L Normal 136-145 [facility] Comment on above: Performed By: #### 2 4362-6 ####FLORINDA Monroe ([id number])[facility] ([facility])[address] [place] [address] Urea nitrogen [Mass/Vol] 40 mg/dL High 6-23 [facility] Comment on above: Performed By: #### 2 4362-6 ####FLORINDA Monroe ([id number])[facility] ([facility])[address] [place] [address] Tacrolimuson 06-11-2024 Tacrolimus (Bld) [Mass/Vol] ng/mL Normal <=15.0 [facility] Comment on above: Order Comment: NOTE: Result was obtained using achemiluminescent microparticle immunoassay(CMIA) on the Systems Software Developer i system.Optimal therapeutic ranges for immunosuppressantdrugs depend upon an individualpatient's current clinical state, type oforgan transplant, time post-transplant,co-administration of other immunosuppressants,and other clinical factors. The results ofthis test should be correlated with additionalclinical and laboratory data before changesin treatment regimens are made. Performed By: #### 1 1253-2 ####FLORINDA Monroe ([id number])[facility] ([facility])[address] [place] [address] 28582 CBC panel Auto (Bld)on 06-10 Erythrocyte distribution width (RBC) [Ratio] 14.7 % High 11.5-14.5 [facility] Comment on above: Performed By: #### 5 8410-2 ####FLORINDA Monroe ([id number])[facility] ([facility])[address] [place] [address] Hematocrit (Bld) [Volume fraction] 26.9 % Low 41.0-52.0 [facility] Comment on above: Performed By: #### 5 8410-2 ####FLORINDA Monroe ([id number])[facility] ([facility])[address] [place] [address] Hemoglobin (Bld) [Mass/Vol] 8.7 g/dL Low 13.5-17.5 [facility] Comment on above: Performed By: #### 5 8410-2 ####FLORINDA Monroe ([id number])[facility] ([facility])[address] [place] [address] MCH (RBC) [Entitic mass] 28.5 pg Normal 26.0-34.0 [facility] Comment on above: Performed By: #### 5 8410-2 ####FLORINDA Monroe ([id number])[facility] ([facility])[address] [place] [address] MCHC (RBC) [Mass/Vol] 32.3 g/dL Normal 32.0-36.0 [facility] Comment on above: Performed By: #### 5 8410-2 ####FLORINDA Monroe ([id number])[facility] ([facility])[address] [place] [address] MCV (RBC) [Entitic vol] 88 fL Normal 80-100 [facility] Comment on above: Performed By: #### 5 8410-2 ####FLORINDA Monroe ([id number])[facility] ([facility])[address] [place] [address] Nucleated RBC/100 WBC (Bld) [Ratio] 0.0 /100 WBCs Normal 0.0-0.0 [facility] Comment on above: Performed By: #### 5 8410-2 ####FLORINDA Monroe ([id number])[facility] ([facility])[address] [place] [address] Platelets (Bld) [#/Vol] 142 x10*3/uL Low 150-450 [facility] Comment on above: Performed By: #### 5 8410-2 ####FLORINDA Monroe ([id number])[facility] ([facility])[address] [place] [address] RBC (Bld) [#/Vol] 3.05 x10*6/uL Low 4.50-5.90 [facility] Comment on above: Performed By: #### 5 8410-2 ####FLORINDA Monroe ([id number])[facility] ([facility])[address] [place] [address] WBC (Bld) [#/Vol] 5.4 x10*3/uL Normal 4.4-11.3 [facility] Comment on above: Performed By: #### 5 8410-2 ####FLORINDA Monroe ([id number])[facility] ([facility])[address] [place] [address] ECG 12-LEADon 06-10-2024 ECG 12-LEAD Ventricular Rate 75 Atrial Rate 75 P-R Interval 152 QRS Duration 160 Q-T Interval 432 QTC Calculation(Bazett) 482 P Afton -21 R Afton -66 T Afton 59 QRS Count 13 Q Onset 186 P Onset 110 P Offset 168 T Offset 402 QTC Fredericia 465 Diagnosis Normal sinus rhythm Right bundle branch block Left anterior fascicular block Bifascicular block Abnormal ECG When compared with ECG of 01-JUN-2024 10:28, T wave inversion less evident in Anterior leads QT has lengthened Confirmed by Kristen Greer ([id number]) on 06/11/2024 10:35:52 PM Normal [facility] Magnesiumon 06-10-2024 Magnesium [Mass/Vol] 2.05 mg/dL Normal 1.60-2.40 [facility] Comment on above: Performed By: #### 1 9123-9 ####FLORINDA Monroe ([id number])[facility] ([facility])[address] [place] [address] 21742 Renal function 2000 panelon 06-10-2024 Albumin BCP dye [Mass/Vol] 3.3 g/dL Low 3.4-5.0 [facility] Comment on above: Performed By: #### 2 4362-6 ####FLORINDA Monroe ([id number])[facility] ([facility])[address] [place] [address] Anion gap [Moles/Vol] 13 mmol/L Normal 10-20 [facility] Comment on above: Performed By: #### 2 4362-6 ####FLORINDA Monroe ([id number])[facility] ([facility])[address] [place] [address] Calcium [Mass/Vol] 9.7 mg/dL Normal 8.6-10.6 [facility] Comment on above: Performed By: #### 2 4362-6 ####FLORINDA Monroe ([id number])[facility] ([facility])[address] [place] [address] Chloride [Moles/Vol] 104 mmol/L Normal 98-107 [facility] Comment on above: Performed By: #### 2 4362-6 ####FLORINDA TARANGO L ([id number])[facility] ([facility])[address] [place] [address] CO2 [Moles/Vol] 24 mmol/L Normal 21-32 [facility] Comment on above: Performed By: #### 2 4362-6 ####FLORINDA TARANGO L ([id number])[facility] ([facility])[address] [place] [address] Creatinine [Mass/Vol] 2.68 mg/dL High 0.50-1.30 [facility] Comment on above: Performed By: #### 2 4362-6 ####FLORINDA TARANGO L ([id number])[facility] ([facility])[address] [place] [address] Glomerular filtration rate/1.73 sq M.predicted 27 mL/min/1.73m*2 Low >60 [facility] Comment on above: Result Comment: Calc ulations of estimated GFR are performed using the 2020 CKD-EPI Study Refit equation without the race variable for the IDMS-Traceable creatinine methods.https://jasn.asnjournals.org/content/early//ASN. 5808654101 Performed By: #### 2 4362-6 ####FLORINDA TARANGO L ([id number])[facility] ([facility])[address] [place] [address] Glucose [Mass/Vol] 90 mg/dL Normal 74-99 [facility] Comment on above: Performed By: #### 2 4362-6 ####FLORINDA TARANGO L ([id number])[facility] ([facility])[address] [place] [address] Phosphate [Mass/Vol] 2.9 mg/dL Normal 2.5-4.9 [facility] Comment on above: Result Comment: The performance characteristics of phosphorus testing in heparinized plasma have been validated by the individual laboratory site where testing is performed. Testing on heparinized plasma is not approved by the FDA; however, such approval is not necessary. Performed By: #### 2 4362-6 ####FLORINDA Monroe ([id number])[facility] ([facility])[address] [place] [address] Potassium [Moles/Vol] 3.9 mmol/L Normal 3.5-5.3 [facility] Comment on above: Performed By: #### 2 4362-6 ####FLORINDA Monroe ([id number])[facility] ([facility])[address] [place] [address] Sodium [Moles/Vol] 137 mmol/L Normal 136-145 [facility] Comment on above: Performed By: #### 2 4362-6 ####FLORINDA Monroe ([id number])[facility] ([facility])[address] [place] [address] Urea nitrogen [Mass/Vol] 44 mg/dL High 6-23 [facility] Comment on above: Performed By: #### 2 4362-6 ####FLORINDA Monroe ([id number])[facility] ([facility])[address] [place] [address] Tacrolimuson 06-10-2024 Tacrolimus (Bld) [Mass/Vol] ng/mL Normal <=15.0 [facility] Comment on above: Order Comment: NOTE: Result was obtained using achemiluminescent microparticle immunoassay(CMIA) on the Systems [employer] Developer i system.Optimal therapeutic ranges for immunosuppressantdrugs depend upon an individualpatient's current clinical state, type oforgan transplant, time post-transplant,co-administration of other immunosuppressants,and other clinical factors. The results ofthis test should be correlated with additionalclinical and laboratory data before changesin treatment regimens are made. Performed By: #### 1 1253-2 ####FLORINDA Monroe ([id number])[facility] ([facility])[address] [place] [address]75 CBC panel Auto (Bld)on 06-09 Erythrocyte distribution width (RBC) [Ratio] 14.7 % High 11.5-14.5 [facility] Comment on above: Performed By: #### 5 8410-2 ####FLORINDA Monroe ([id number])[facility] ([facility])[address] [place] [address] Hematocrit (Bld) [Volume fraction] 27.4 % Low 41.0-52.0 [facility] Comment on above: Performed By: #### 5 8410-2 ####FLORINDA Monroe ([id number])[facility] ([facility])[address] [place] [address] Hemoglobin (Bld) [Mass/Vol] 8.8 g/dL Low 13.5-17.5 [facility] Comment on above: Performed By: #### 5 8410-2 ####FLORINDA Monroe ([id number])[facility] ([facility])[address] [place] [address] MCH (RBC) [Entitic mass] 29.3 pg Normal 26.0-34.0 [facility] Comment on above: Performed By: #### 5 8410-2 ####FLORINDA Monroe ([id number])[facility] ([facility])[address] [place] [address] 54545 MCHC (RBC) [Mass/Vol] 32.1 g/dL Normal 32.0-36.0 [facility] Comment on above: Performed By: #### 5 8410-2 ####FLORINDA Monroe ([id number])[facility] ([facility])[address] [place] [address] MCV (RBC) [Entitic vol] 91 fL Normal 80-100 [facility] Comment on above: Performed By: #### 5 8410-2 ####FLORINDA Monroe ([id number])[facility] ([facility])[address] [place] [address] [place] [address] Nucleated RBC/100 WBC (Bld) [Ratio] 0.0 /100 WBCs Normal 0.0-0.0 [facility] Comment on above: Performed By: #### 5 8410-2 ####FLORINDA Monroe ([id number])[facility] ([facility])[address] [place] [address] Platelets (Bld) [#/Vol] 160 x10*3/uL Normal 150-450 [facility] Comment on above: Performed By: #### 5 8410-2 ####FLORINDA Monroe ([id number])[facility] ([facility])[address] [place] [address] RBC (Bld) [#/Vol] 3.00 x10*6/uL Low 4.50-5.90 [facility] Comment on above: Performed By: #### 5 8410-2 ####FLORINDA Monroe ([id number])[facility] ([facility])[address] [place] [address] WBC (Bld) [#/Vol] 5.4 x10*3/uL Normal 4.4-11.3 [facility] Comment on above: Performed By: #### 5 8410-2 ####FLORINDA Monroe ([id number])[facility] ([facility])[address] [place] [address] Heparin.unfractionatedon Heparin unfractionated Chromogenic method Qn (PPP) 1.4 IU/mL Critically high See Comment Below for Therapeutic Ranges [facility] Comment on above: Order Comment: Obtai n 4 hours after any Heparin dosage change. Nursing to release order.The therapeutic reference range for UFH may be either 0.3-0.6 IU/mL or 0.3-0.7 IU/mL based on the clinical setting for anticoagulant therapy and the associated nomogram used. For Heparin dosing guidelines based on clinical scenario and Heparin Assay results, please refer to local Pharmacy and the [facility] Guidelines for Anticoagulation Therapy available on the [facility] intranet at: [email or web address] Performed By: #### 3 274-8 ####FLORINDA Monroe ([id number])[facility] ([facility])[address] [place] [address] Magnesiumon 06-09-2024 Magnesium [Mass/Vol] 1.99 mg/dL Normal 1.60-2.40 [facility] Comment on above: Result Comment: MILD HEMOLYSIS DETECTED. The result may be falsely elevated due to hemolysis or other interferents. Clinical correlation is recommended. Repeat testing may be considered. Performed By: #### 1 9123-9 ####FLORINDA Monroe ([id number])[facility] ([facility])[address] [place] [address]2900 Renal function 2000 panelon 06-09-2024 Albumin BCP dye [Mass/Vol] 3.1 g/dL Low 3.4-5.0 [facility] Comment on above: Performed By: #### 2 4362-6 ####FLORINDA Monroe ([id number])[facility] ([facility])[address] [place] [address] Anion gap [Moles/Vol] 13 mmol/L Normal 10-20 [facility] Comment on above: Performed By: #### 2 4362-6 ####FLORINDA Monroe ([id number])[facility] ([facility])[address] [place] [address] Calcium [Mass/Vol] 9.3 mg/dL Normal 8.6-10.6 [facility] Comment on above: Performed By: #### 2 4362-6 ####FLORINDA Monroe ([id number])[facility] ([facility])[address] [place] [address] Chloride [Moles/Vol] 102 mmol/L Normal 98-107 [facility] Comment on above: Performed By: #### 2 4362-6 ####FLORINDA Monroe ([id number])[facility] ([facility])[address] [place] [address] CO2 [Moles/Vol] 22 mmol/L Normal 21-32 [facility] Comment on above: Performed By: #### 2 4362-6 ####FLORINDA Monroe ([id number])[facility] ([facility])[address] [place] [address] Creatinine [Mass/Vol] 2.95 mg/dL High 0.50-1.30 [facility] Comment on above: Performed By: #### 2 4362-6 ####FLORINDA Monroe ([id number])[facility] ([facility])[address] [place] [address] Glomerular filtration rate/1.73 sq M.predicted 24 mL/min/1.73m*2 Low >60 [facility] Comment on above: Result Comment: Calc ulations of estimated GFR are performed using the 2020 CKD-EPI Study Refit equation without the race variable for the IDMS-Traceable creatinine methods.https://jasn.asnjournals.org/content/early//ASN. 9324532611 Performed By: #### 2 4362-6 ####FLORINDA Monroe ([id number])[facility] ([facility])[address] [place] [address] Glucose [Mass/Vol] 132 mg/dL High 74-99 [facility] Comment on above: Performed By: #### 2 4362-6 ####FLORINDA Monroe ([id number])[facility] ([facility])[address] [place] [address] Phosphate [Mass/Vol] 3.0 mg/dL Normal 2.5-4.9 [facility] Comment on above: Result Comment: MILD HEMOLYSIS DETECTED. The result may be falsely elevated due to hemolysis or other interferents. Clinical correlation is recommended. Repeat testing may be considered.The performance characteristics of phosphorus testing in heparinized plasma have been validated by the individual laboratory site where testing is performed. Testing on heparinized plasma is not approved by the FDA; however, such approval is not necessary. Performed By: #### 2 4362-6 ####FLORINDA Monroe ([id number])[facility] ([facility])[address] [place] [address] Potassium [Moles/Vol] 4.4 mmol/L Normal 3.5-5.3 [facility] Comment on above: Result Comment: MILD HEMOLYSIS DETECTED. The result may be falsely elevated due to hemolysis or other interferents. Clinical correlation is recommended. Repeat testing may be considered. Performed By: #### 2 4362-6 ####FLORINDA Monroe ([id number])[facility] ([facility])[address] [place] [address] Sodium [Moles/Vol] 133 mmol/L Low 136-145 [facility] Comment on above: Performed By: #### 2 4362-6 ####FLORINDA Monroe ([id number])[facility] ([facility])[address] [place] [address] Urea nitrogen [Mass/Vol] 52 mg/dL High 6-23 [facility] Comment on above: Performed By: #### 2 4362-6 ####FLORINDA Monroe ([id number])[facility] ([facility])[address] [place] [address] Albumin BCP dye [Mass/Vol] 2.7 g/dL Low 3.4-5.0 [facility] Comment on above: Performed By: #### 2 4362-6 ####FLORINDA Monroe ([id number])[facility] ([facility])[address] [place] [address] Anion gap [Moles/Vol] 14 mmol/L Normal 10-20 [facility] Comment on above: Performed By: #### 2 4362-6 ####FLORINDA Monroe ([id number])[facility] ([facility])[address] [place] [address] Calcium [Mass/Vol] 9.0 mg/dL Normal 8.6-10.6 [facility] Comment on above: Performed By: #### 2 4362-6 ####FLORINDA Monroe ([id number])[facility] ([facility])[address] [place] [address] Chloride [Moles/Vol] 100 mmol/L Normal 98-107 [facility] Comment on above: Performed By: #### 2 4362-6 ####FLORINDA Monroe ([id number])[facility] ([facility])[address] [place] [address] CO2 [Moles/Vol] 25 mmol/L Normal 21-32 [facility] Comment on above: Performed By: #### 2 4362-6 ####FLORINDA Monroe ([id number])[facility] ([facility])[address] [place] [address] Creatinine [Mass/Vol] 3.11 mg/dL High 0.50-1.30 [facility] Comment on above: Performed By: #### 2 4362-6 ####FLORINDA Monroe ([id number])[facility] ([facility])[address] [place] [address] Glomerular filtration rate/1.73 sq M.predicted 23 mL/min/1.73m*2 Low >60 [facility] Comment on above: Result Comment: Calc ulations of estimated GFR are performed using the 2020 CKD-EPI Study Refit equation without the race variable for the IDMS-Traceable creatinine methods.https://jasn.asnjournals.org/content//ASN. 7938267806 Performed By: #### 2 4362-6 ####FLORINDA Monroe ([id number])[facility] ([facility])[address] [place] [address] Glucose [Mass/Vol] 79 mg/dL Normal 74-99 [facility] Comment on above: Performed By: #### 2 4362-6 ####FLORINDA Monroe ([id number])[facility] ([facility])[address] [place] [address] Phosphate [Mass/Vol] 3.9 mg/dL Normal 2.5-4.9 [facility] Comment on above: Result Comment: MILD HEMOLYSIS DETECTED. The result may be falsely elevated due to hemolysis or other interferents. Clinical correlation is recommended. Repeat testing may be considered.The performance characteristics of phosphorus testing in heparinized plasma have been validated by the individual laboratory site where testing is performed. Testing on heparinized plasma is not approved by the FDA; however, such approval is not necessary. Performed By: #### 2 4362-6 ####FLORINDA Monroe ([id number])[facility] ([facility])[id number] [place] [address] Potassium [Moles/Vol] 4.7 mmol/L Normal 3.5-5.3 [facility] Comment on above: Result Comment: MILD HEMOLYSIS DETECTED. The result may be falsely elevated due to hemolysis or other interferents. Clinical correlation is recommended. Repeat testing may be considered. Performed By: #### 2 4362-6 ####FLORINDA Monroe ([id number])[facility] ([facility])[address] [place] [address] Sodium [Moles/Vol] 134 mmol/L Low 136-145 [facility] Comment on above: Performed By: #### 2 4362-6 ####FLORINDA Monroe ([id number])[facility] ([facility])[address] [place] [address] Urea nitrogen [Mass/Vol] 57 mg/dL High 6-23 [facility] Comment on above: Performed By: #### 2 4362-6 ####FLORINDA Monroe ([id number])[facility] ([facility])[address] [place] [address] Tacrolimuson 06-09-2024 Tacrolimus (Bld) [Mass/Vol] 2.8 ng/mL Normal <=15.0 [facility] Comment on above: Order Comment: NOTE: Result was obtained using achemiluminescent microparticle immunoassay(CMIA) on the [employer] i system.Optimal therapeutic ranges for immunosuppressantdrugs depend upon an individualpatient's current clinical state, type oforgan transplant, time post-transplant,co-administration of other immunosuppressants,and other clinical factors. The results ofthis test should be correlated with additionalclinical and laboratory data before changesin treatment regimens are made. Performed By: #### 1 1253-2 ####FLORINDA Monroe ([id number])[facility] ([facility])[address] [place] [address] Urea nitrogenon 06-09-2024 Urea nitrogen (U) [Mass/Vol] 357 mg/dL Normal [facility] Comment on above: Performed By: #### 3 095-7 ####FLORINDA TARANGO L ([id number])[facility] ([facility])[address] [place] [address] 77861 Urea nitrogen (U) [Mass/Vol] on 06-09-2024 Creatinine (U) [Mass/Vol] 44.2 mg/dL Normal 20.0-370.0 [facility] Comment on above: Performed By: #### 3 095-7 ####FLORINDA TARANGO L ([id number])[facility] ([facility])[address] [place] [address] 22888 Urea/Creatinine (U) [Molar ratio] 8.1 g/g creat Normal Not established. [facility] Comment on above: Performed By: #### 3 095-7 ####FLORINDA Monroe ([id number])[facility] ([facility])[address] [place] [address] 63403 CBC panel Auto (Bld)on 06-08 Erythrocyte distribution width (RBC) [Ratio] 14.5 % Normal 11.5-14.5 [facility] Comment on above: Performed By: #### 5 8410-2 ####FLORINDA TARANGO L ([id number])[facility] ([facility])[address] [place] [address] Hematocrit (Bld) [Volume fraction] 26.2 % Low 41.0-52.0 [facility] Comment on above: Performed By: #### 5 8410-2 ####FLORINDA Monroe ([id number])[facility] ([facility])[address] [place] [address] 51420 Hemoglobin (Bld) [Mass/Vol] 8.3 g/dL Low 13.5-17.5 [facility] Comment on above: Performed By: #### 5 8410-2 ####FLORINDA Monroe ([id number])[facility] ([facility])[address] [place] [address] MCH (RBC) [Entitic mass] 28.5 pg Normal 26.0-34.0 [facility] Comment on above: Performed By: #### 5 8410-2 ####FLORINDA Monroe ([id number])[facility] ([facility])[address] [place] [address] MCHC (RBC) [Mass/Vol] 31.7 g/dL Low 32.0-36.0 [facility] Comment on above: Performed By: #### 5 8410-2 ####FLORINDA Monroe ([id number])[facility] ([facility])[address] [place] [address] MCV (RBC) [Entitic vol] 90 fL Normal 80-100 [facility] Comment on above: Performed By: #### 5 8410-2 ####FLORINDA Monroe ([id number])[facility] ([facility])[address] [place] [address] Nucleated RBC/100 WBC (Bld) [Ratio] 0.0 /100 WBCs Normal 0.0-0.0 [facility] Comment on above: Performed By: #### 5 8410-2 ####FLORINDA Monroe ([id number])[facility] ([facility])[address] [place] [address] Platelets (Bld) [#/Vol] 148 x10*3/uL Low 150-450 [facility] Comment on above: Performed By: #### 5 8410-2 ####FLORINDA Monroe ([id number])[facility] ([facility])[address] [place] [address] RBC (Bld) [#/Vol] 2.91 x10*6/uL Low 4.50-5.90 [facility] Comment on above: Performed By: #### 5 8410-2 ####FLORINDA Monroe ([id number])[facility] ([facility])[address] [place] [address] 55605 WBC (Bld) [#/Vol] 5.1 x10*3/uL Normal 4.4-11.3 [facility] Comment on above: Performed By: #### 5 8410-2 ####FLORINDA Monroe ([id number])[facility] ([facility])[address] [place] [address] 64204 Chlorideon 06-08-2024 Chloride (U) [Moles/Vol] 18 mmol/L Normal [facility] Comment on above: Performed By: #### 2 078-4 ####FLORINDA Monroe ([id number])[facility] ([facility])[address] [place] [address] 35674 Creatinine (U) [Mass/Vol] 56.3 mg/dL Normal 20.0-370.0 [facility] Comment on above: Performed By: #### 2 078-4 ####FLORINDA Monroe ([id number])[facility] ([facility])[address] [place] [address] 54485 Performed By: #### 2 828-2 ####FLORINDA Monroe ([id number])[facility] ([facility])[address] [place] [address] 13010 Performed By: #### 2 955-3 ####FLORINDA Monroe ([id number])[facility] ([facility])[address] [place] [address] 11307 Chloride (U) [Moles/Vol]on 0 06-08-2024 CHLORIDE/CREATININE (MMOL/G) IN URINE 32 mmol/g creat Normal 23-275 [facility] Comment on above: Performed By: #### 2 078-4 ####FLORINDA Monroe ([id number])[facility] ([facility])[address] [place] [address] 48756 Heparin.unfractionatedon Heparin unfractionated Chromogenic method Qn (PPP) >2.0 Critically high See Comment Below for Therapeutic Ranges [facility] Comment on above: Order Comment: Obtai n 4 hours after any Heparin dosage change. Nursing to release order.The therapeutic reference range for UFH may be either 0.3-0.6 IU/mL or 0.3-0.7 IU/mL based on the clinical setting for anticoagulant therapy and the associated nomogram used. For Heparin dosing guidelines based on clinical scenario and Heparin Assay results, please refer to local Pharmacy and the [facility] Guidelines for Anticoagulation Therapy available on the [facility] intranet at: [email or web address] Performed By: #### 3 274-8 ####FLORINDA Monroe ([id number])[facility] ([facility])[address] [place] [address] Heparin unfractionated Chromogenic method Qn (PPP) >2.0 Critically high See Comment Below for Therapeutic Ranges [facility] Comment on above: Order Comment: Obtai n 4 hours after initiation of heparin infusion. Nursing to release order.The therapeutic reference range for UFH may be either 0.3-0.6 IU/mL or 0.3-0.7 IU/mL based on the clinical setting for anticoagulant therapy and the associated nomogram used. For Heparin dosing guidelines based on clinical scenario and Heparin Assay results, please refer to local Pharmacy and the [facility] Guidelines for Anticoagulation Therapy available on the [facility] intranet at: [email or web address] Performed By: #### 3 274-8 ####FLORINDA Monroe ([id number])[facility] ([facility])[address] [place], [place] [address] Magnesiumon 06-08-2024 Magnesium [Mass/Vol] 1.87 mg/dL Normal 1.60-2.40 [facility] Comment on above: Performed By: #### 1 9123-9 ####FLORINDA Monroe ([id number])[facility] ([facility])[address] [place] [address] Potassiumon 06-08-2024 Potassium (U) [Moles/Vol] 10 mmol/L Normal [facility] Comment on above: Performed By: #### 2 828-2 ####FLORINDA Monroe ([id number])[facility] ([facility])[address] [place] [address] Potassium (U) [Moles/Vol]on 06-08-2024 Potassium/Creatinin e (U) [Ratio] 18 mmol/g Creat Normal Not established [facility] Comment on above: Performed By: #### 2 828-2 ####FLORINDA Monroe ([id number])[facility] ([facility])[address] [place] [address] 23888 Renal function 2000 panelon 06-08-2024 Albumin BCP dye [Mass/Vol] 2.7 g/dL Low 3.4-5.0 [facility] Comment on above: Performed By: #### 2 4362-6 ####FLORINDA Monroe ([id number])[facility] ([facility])[address] [place] [address] Anion gap [Moles/Vol] 11 mmol/L Normal 10-20 [facility] Comment on above: Performed By: #### 2 4362-6 ####FLORINDA Monroe ([id number])[facility] ([facility])[address] [place] [address] Calcium [Mass/Vol] 8.8 mg/dL Normal 8.6-10.6 [facility] Comment on above: Performed By: #### 2 4362-6 ####FLORINDA Monroe ([id number])[facility] ([facility])[address] [place] [address] Chloride [Moles/Vol] 99 mmol/L Normal 98-107 [facility] Comment on above: Performed By: #### 2 4362-6 ####FLORINDA Monroe ([id number])[facility] ([facility])[address] [place] [address] CO2 [Moles/Vol] 25 mmol/L Normal 21-32 [facility] Comment on above: Performed By: #### 2 4362-6 ####FLORINDA Monroe ([id number])[facility] ([facility])[address] [place] [address] Creatinine [Mass/Vol] 3.56 mg/dL High 0.50-1.30 [facility] Comment on above: Performed By: #### 2 4362-6 ####FLORINDA Monroe ([id number])[facility] ([facility])[address] [place] [address] 26535 Glomerular filtration rate/1.73 sq M.predicted 19 mL/min/1.73m*2 Low >60 [facility] Comment on above: Result Comment: Calc ulations of estimated GFR are performed using the 2020 CKD-EPI Study Refit equation without the race variable for the IDMS-Traceable creatinine methods.https://jasn.asnjournals.org/content/early/ASN. 1972796279 Performed By: #### 2 4362-6 ####FLORINDA Monroe ([id number])[facility] ([facility])[address] [place] [address] Glucose [Mass/Vol] 90 mg/dL Normal 74-99 [facility] Comment on above: Performed By: #### 2 4362-6 ####FLORINDA Monroe ([id number])[facility] ([facility])[address] [place] [address] Phosphate [Mass/Vol] 4.0 mg/dL Normal 2.5-4.9 [facility] Comment on above: Result Comment: The performance characteristics of phosphorus testing in heparinized plasma have been validated by the individual laboratory site where testing is performed. Testing on heparinized plasma is not approved by the FDA; however, such approval is not necessary. Performed By: #### 2 4362-6 ####FLORINDA Monroe ([id number])[facility] ([facility])[address] [place] [address] Potassium [Moles/Vol] 4.3 mmol/L Normal 3.5-5.3 [facility] Comment on above: Performed By: #### 2 4362-6 ####FLORINDA Monroe ([id number])[facility] ([facility])[address] [place] [address] Sodium [Moles/Vol] 131 mmol/L Low 136-145 [facility] Comment on above: Performed By: #### 2 4362-6 ####FLORINDA Monroe ([id number])[facility] ([facility])[address] [place] [address] Urea nitrogen [Mass/Vol] 60 mg/dL High 6-23 [facility] Comment on above: Performed By: #### 2 4362-6 ####FLORINDA Monroe ([id number])[facility] ([facility])[address] [place] [address] Sodiumon 06-08-2024 Sodium (U) [Moles/Vol] 34 mmol/L Normal [facility] Comment on above: Performed By: #### 2 955-3 ####FLORINDA Monroe ([id number])[facility] ([facility])[address] [place] [address] 41359 Sodium (U) [Moles/Vol]on Sodium/Creatinine (U) [Ratio] 60 mmol/g Creat Normal Not established. [facility] Comment on above: Performed By: #### 2 955-3 ####FLORINDA Monroe ([id number])[facility] ([facility])[address] [place] [address] Tacrolimuson 06-08-2024 Tacrolimus (Bld) [Mass/Vol] 5.8 ng/mL Normal <=15.0 [facility] Comment on above: Order Comment: NOTE: Result was obtained using achemiluminescent microparticle immunoassay(CMIA) on the [employer] i system.Optimal therapeutic ranges for immunosuppressantdrugs depend upon an individualpatient's current clinical state, type oforgan transplant, time post-transplant,co-administration of other immunosuppressants,and other clinical factors. The results ofthis test should be correlated with additionalclinical and laboratory data before changesin treatment regimens are made. Performed By: #### 1 1253-2 ####FLORINDA Monroe ([id number])[facility] ([facility])[address] [place] [address] 18403 CBC panel Auto (Bld)on 06-07 Erythrocyte distribution width (RBC) [Ratio] 15.0 % High 11.5-14.5 [facility] Comment on above: Performed By: #### 5 8410-2 ####FLORINDA Monroe ([id number])[facility] ([facility])[address] [place] [address] 18239 Hematocrit (Bld) [Volume fraction] 27.2 % Low 41.0-52.0 [facility] Comment on above: Performed By: #### 5 8410-2 ####FLORINDA Monroe ([id number])[facility] ([facility])[address] [place] [address] 45449 Hemoglobin (Bld) [Mass/Vol] 8.7 g/dL Low 13.5-17.5 [facility] Comment on above: Performed By: #### 5 8410-2 ####FLORINDA Monroe ([id number])[facility] ([facility])[address] [place] [address] 14897 MCH (RBC) [Entitic mass] 29.7 pg Normal 26.0-34.0 [facility] Comment on above: Performed By: #### 5 8410-2 ####FLORINDA TARANGO L ([id number])[facility] ([facility])[address] [place] [address] 30270 MCHC (RBC) [Mass/Vol] 32.0 g/dL Normal 32.0-36.0 [facility] Comment on above: Performed By: #### 5 8410-2 ####FLORINDA TARANGO L ([id number])[facility] ([facility])[address] [place] [address] 62536 MCV (RBC) [Entitic vol] 93 fL Normal 80-100 [facility] Comment on above: Performed By: #### 5 8410-2 ####FLORINDA Monroe ([id number])[facility] ([facility])[address] [place] [address] 72642 Nucleated RBC/100 WBC (Bld) [Ratio] 0.0 /100 WBCs Normal 0.0-0.0 [facility] Comment on above: Performed By: #### 5 8410-2 ####FLORINDA Monroe ([id number])[facility] ([facility])[address] [place] [address] 90195 Platelets (Bld) [#/Vol] 146 x10*3/uL Low 150-450 [facility] Comment on above: Performed By: #### 5 8410-2 ####FLORINDA Monroe ([id number])[facility] ([facility])[address] [place] [address] 26190 RBC (Bld) [#/Vol] 2.93 x10*6/uL Low 4.50-5.90 [facility] Comment on above: Performed By: #### 5 8410-2 ####FLORINDA Monroe ([id number])[facility] ([facility])[address] [place] [address] 32516 WBC (Bld) [#/Vol] 3.9 x10*3/uL Low 4.4-11.3 [facility] Comment on above: Performed By: #### 5 8410-2 ####FLORINDA Monroe ([id number])[facility] ([facility])[address] [place] [address] 53288 Coagulation surface inducedo n 06-07-2024 aPTT Coag (PPP) [Time] 35 s Normal 27-38 [facility] Comment on above: Order Comment: Basel ine aPTT before initiating heparin infusion. Nursing to release order.The APTT is no longer used for monitoring Unfractionated Heparin Therapy. For monitoring Heparin Therapy, use the Heparin Assay. Performed By: #### 1 4979-9 ####FLORINDA Monroe ([id number])[facility] ([facility])[address] [place] [address] Magnesiumon 06-07-2024 Magnesium [Mass/Vol] 1.83 mg/dL Normal 1.60-2.40 [facility] Comment on above: Performed By: #### 1 9123-9 ####FLORINDA Monroe ([id number])[facility] ([facility])[address] [place] [address] Renal function 2000 panelon 06-07-2024 Albumin BCP dye [Mass/Vol] 2.8 g/dL Low 3.4-5.0 [facility] Comment on above: Performed By: #### 2 4362-6 ####FLORINDA Monroe ([id number])[facility] ([facility])[address] [place] [address] Anion gap [Moles/Vol] 14 mmol/L Normal 10-20 [facility] Comment on above: Performed By: #### 2 4362-6 ####FLORINDA Monroe ([id number])[facility] ([facility])[address] [place] [address] Calcium [Mass/Vol] 8.9 mg/dL Normal 8.6-10.6 [facility] Comment on above: Performed By: #### 2 4362-6 ####FLORINDA Monroe ([id number])[facility] ([facility])[address] [place] [address] Chloride [Moles/Vol] 98 mmol/L Normal 98-107 [facility] Comment on above: Performed By: #### 2 4362-6 ####FLORINDA Monroe ([id number])[facility] ([facility])[address] [place] [address] CO2 [Moles/Vol] 25 mmol/L Normal 21-32 [facility] Comment on above: Performed By: #### 2 4362-6 ####FLORINDA Monroe ([id number])[facility] ([facility])[address] [place] [address] Creatinine [Mass/Vol] 3.75 mg/dL High 0.50-1.30 [facility] Comment on above: Performed By: #### 2 4362-6 ####FLORINDA Monroe ([id number])[facility] ([facility])[address] [place] [address] Glomerular filtration rate/1.73 sq M.predicted 18 mL/min/1.73m*2 Low >60 [facility] Comment on above: Result Comment: Calc ulations of estimated GFR are performed using the 2020 CKD-EPI Study Refit equation without the race variable for the IDMS-Traceable creatinine methods.https://jasn.asnjournals.org/content/early/ASN. 5455034523 Performed By: #### 2 4362-6 ####FLORINDA Monroe ([id number])[facility] ([facility])[address] [place] [address] Glucose [Mass/Vol] 90 mg/dL Normal 74-99 [facility] Comment on above: Performed By: #### 2 4362-6 ####FLORINDA Monroe ([id number])[facility] ([facility])[address] [place] [address] 17076 Phosphate [Mass/Vol] 5.0 mg/dL High 2.5-4.9 [facility] Comment on above: Result Comment: The performance characteristics of phosphorus testing in heparinized plasma have been validated by the individual laboratory site where testing is performed. Testing on heparinized plasma is not approved by the FDA; however, such approval is not necessary. Performed By: #### 2 4362-6 ####FLORINDA Monroe ([id number])[facility] ([facility])[address] [place] [address] Potassium [Moles/Vol] 4.1 mmol/L Normal 3.5-5.3 [facility] Comment on above: Performed By: #### 2 4362-6 ####FLORINDA Monroe ([id number])[facility] ([facility])[address] [place] [address] Sodium [Moles/Vol] 133 mmol/L Low 136-145 [facility] Comment on above: Performed By: #### 2 4362-6 ####FLORINDA Monroe ([id number])[facility] ([facility])[address] [place] [address] 82757 Urea nitrogen [Mass/Vol] 62 mg/dL High 6-23 [facility] Comment on above: Performed By: #### 2 4362-6 ####FLORINDA Monroe ([id number])[facility] ([facility])[address] [place] [address] 32619 Tacrolimuson 06-07-2024 Tacrolimus (Bld) [Mass/Vol] 3.5 ng/mL Normal <=15.0 [facility] Comment on above: Order Comment: NOTE: Result was obtained using achemiluminescent microparticle immunoassay(CMIA) on the [employer] Developer i system.Optimal therapeutic ranges for immunosuppressantdrugs depend upon an individualpatient's current clinical state, type oforgan transplant, time post-transplant,co-administration of other immunosuppressants,and other clinical factors. The results ofthis test should be correlated with additionalclinical and laboratory data before changesin treatment regimens are made. Performed By: #### 1 1253-2 ####FLORINDA Monroe ([id number])[facility] ([facility])[address] [place] [address] 49283 CBC panel Auto (Bld)on 06-06 Erythrocyte distribution width (RBC) [Ratio] 14.8 % High 11.5-14.5 [facility] Comment on above: Performed By: #### 5 8410-2 ####FLORINDA Monroe ([id number])[facility] ([facility])[address] [place] [address] 59131 Hematocrit (Bld) [Volume fraction] 26.3 % Low 41.0-52.0 [facility] Comment on above: Performed By: #### 5 8410-2 ####FLORINDA Monroe ([id number])[facility] ([facility])[address] [place] [address] 64289 Hemoglobin (Bld) [Mass/Vol] 8.3 g/dL Low 13.5-17.5 [facility] Comment on above: Performed By: #### 5 8410-2 ####FLORINDA Monroe ([id number])[facility] ([facility])[address] [place] [address] MCH (RBC) [Entitic mass] 28.7 pg Normal 26.0-34.0 [facility] Comment on above: Performed By: #### 5 8410-2 ####FLORINDA Monroe ([id number])[facility] ([facility])[address] [place] [address] MCHC (RBC) [Mass/Vol] 31.6 g/dL Low 32.0-36.0 [facility] Comment on above: Performed By: #### 5 8410-2 ####FLORINDA Monroe ([id number])[facility] ([facility])[address] [place] [address] 89213 MCV (RBC) [Entitic vol] 91 fL Normal 80-100 [facility] Comment on above: Performed By: #### 5 8410-2 ####FLORINDA Monroe ([id number])[facility] ([facility])[id number] [place] [id number] Nucleated RBC/100 WBC (Bld) [Ratio] 0.0 /100 WBCs Normal 0.0-0.0 [facility] Comment on above: Performed By: #### 5 8410-2 ####FLORINDA Monroe ([id number])[facility] ([facility])[id number] [place] [address] Platelets (Bld) [#/Vol] 149 x10*3/uL Low 150-450 [facility] Comment on above: Performed By: #### 5 8410-2 ####FLORINDA Monroe ([id number])[facility] ([facility])[address] [place] [address] RBC (Bld) [#/Vol] 2.89 x10*6/uL Low 4.50-5.90 [facility] Comment on above: Performed By: #### 5 8410-2 ####FLORINDA Monroe ([id number])[facility] ([facility])[address] [place] [address] WBC (Bld) [#/Vol] 4.2 x10*3/uL Low 4.4-11.3 [facility] Comment on above: Performed By: #### 5 8410-2 ####FLORINDA Monroe ([id number])[facility] ([facility])[address] [place] [address] Magnesiumon 06-06-2024 Magnesium [Mass/Vol] 1.79 mg/dL Normal 1.60-2.40 [facility] Comment on above: Performed By: #### 1 9123-9 ####FLORINDA Monroe ([id number])[facility] ([facility])[id number] [place] [address] Natriuretic peptide B [Mass/ Vol]on 06-06-2024 Natriuretic peptide B (Bld) [Mass/Vol] 456 pg/mL High 0-99 [facility] Comment on above: Order Comment: <100 pg/mL - Heart failure [id number] pg/mL - Intermediate probability of acute heart failure exacerbation. Correlate with clinical context and patient history. >=300 pg/mL - Heart Failure likely. Correlate with clinical context and patient history.Biotin interference may cause falsely decreased results. Patients taking a Biotin dose of up to 5 mg/day should refrain from taking Biotin for 24 hours before sample collection. Providers may contact their local laboratory for further information. Performed By: #### 3 0934-4 ####FLORINDA Monroe ([id number])[facility] ([facility])[address] [place] [address] Renal function 2000 panelon 06-06-2024 Albumin BCP dye [Mass/Vol] 2.6 g/dL Low 3.4-5.0 [facility] Comment on above: Performed By: #### 2 4362-6 ####FLORINDA Monroe ([id number])[facility] ([facility])[address] [place] [address] Anion gap [Moles/Vol] 13 mmol/L Normal 10-20 [facility] Comment on above: Performed By: #### 2 4362-6 ####FLORINDA TARANGO L ([id number])[facility] ([facility])[address] [place] [address] Calcium [Mass/Vol] 8.8 mg/dL Normal 8.6-10.6 [facility] Comment on above: Performed By: #### 2 4362-6 ####FLORINDA Monroe ([id number])[facility] ([facility])[address] [place] [address] Chloride [Moles/Vol] 99 mmol/L Normal 98-107 [facility] Comment on above: Performed By: #### 2 4362-6 ####FLORINDA TARANGO L ([id number])[facility] ([facility])[address] [place] [address] CO2 [Moles/Vol] 24 mmol/L Normal 21-32 [facility] Comment on above: Performed By: #### 2 4362-6 ####FLORINDA TARANGO L ([id number])[facility] ([facility])[address] [place] [address] Creatinine [Mass/Vol] 3.63 mg/dL High 0.50-1.30 [facility] Comment on above: Performed By: #### 2 4362-6 ####FLORINDA TARANGO L ([id number])[facility] ([facility])[address] [place] [address] Glomerular filtration rate/1.73 sq M.predicted 19 mL/min/1.73m*2 Low >60 [facility] Comment on above: Result Comment: Calc ulations of estimated GFR are performed using the 2020 CKD-EPI Study Refit equation without the race variable for the IDMS-Traceable creatinine methods.https://jasn.asnjournals.org/content//ASN. 6112001156 Performed By: #### 2 4362-6 ####FLORINDA Monroe ([id number])[facility] ([facility])[address] [place] [address] Glucose [Mass/Vol] 78 mg/dL Normal 74-99 [facility] Comment on above: Performed By: #### 2 4362-6 ####FLORINDA Monroe ([id number])[facility] ([facility])[address] [place] [address] Phosphate [Mass/Vol] 5.1 mg/dL High 2.5-4.9 [facility] Comment on above: Result Comment: The performance characteristics of phosphorus testing in heparinized plasma have been validated by the individual laboratory site where testing is performed. Testing on heparinized plasma is not approved by the FDA; however, such approval is not necessary. Performed By: #### 2 4362-6 ####FLORINDA Monroe ([id number])[facility] ([facility])[address] [place] [address] Potassium [Moles/Vol] 4.4 mmol/L Normal 3.5-5.3 [facility] Comment on above: Performed By: #### 2 4362-6 ####FLORINDA Monroe ([id number])[facility] ([facility])[address] [place] [address] Sodium [Moles/Vol] 132 mmol/L Low 136-145 [facility] Comment on above: Performed By: #### 2 4362-6 ####FLORINDA Monroe ([id number])[facility] ([facility])[address] [place] [address] Urea nitrogen [Mass/Vol] 60 mg/dL High 6-23 [facility] Comment on above: Performed By: #### 2 4362-6 ####FLORINDA Monroe ([id number])[facility] ([facility])[address] [place] [address] Tacrolimuson 06-06-2024 Tacrolimus (Bld) [Mass/Vol] 3.7 ng/mL Normal <=15.0 [facility] Comment on above: Order Comment: NOTE: Result was obtained using achemiluminescent microparticle immunoassay(CMIA) on the [employer] Developer i system.Optimal therapeutic ranges for immunosuppressantdrugs depend upon an individualpatient's current clinical state, type oforgan transplant, time post-transplant,co-administration of other immunosuppressants,and other clinical factors. The results ofthis test should be correlated with additionalclinical and laboratory data before changesin treatment regimens are made. Performed By: #### 1 1253-2 ####FLORINDA Monroe ([id number])[facility] ([facility])[address] [place] [address] CBC panel Auto (Bld)on 06-05 Erythrocyte distribution width (RBC) [Ratio] 14.9 % High 11.5-14.5 [facility] Comment on above: Performed By: #### 5 8410-2 ####FLORINDA Monroe ([id number])[facility] ([facility])[address] [place] [address] Hematocrit (Bld) [Volume fraction] 27.9 % Low 41.0-52.0 [facility] Comment on above: Performed By: #### 5 8410-2 ####FLORINDA Monroe ([id number])[facility] ([facility])[address] [place] [address] Hemoglobin (Bld) [Mass/Vol] 8.9 g/dL Low 13.5-17.5 [facility] Comment on above: Performed By: #### 5 8410-2 ####FLORINDA Monroe ([id number])[facility] ([facility])[address] [place] [address] MCH (RBC) [Entitic mass] 29.0 pg Normal 26.0-34.0 [facility] Comment on above: Performed By: #### 5 8410-2 ####FLORINDA Monroe ([id number])[facility] ([facility])[address] [place] [address] MCHC (RBC) [Mass/Vol] 31.9 g/dL Low 32.0-36.0 [facility] Comment on above: Performed By: #### 5 8410-2 ####FLORINDA Monroe ([id number])[facility] ([facility])[address] [place] [address] MCV (RBC) [Entitic vol] 91 fL Normal 80-100 [facility] Comment on above: Performed By: #### 5 8410-2 ####FLORINDA Monroe ([id number])[facility] ([facility])[address] [place] [address] Nucleated RBC/100 WBC (Bld) [Ratio] 0.0 /100 WBCs Normal 0.0-0.0 [facility] Comment on above: Performed By: #### 5 8410-2 ####FLORINDA Monroe ([id number])[facility] ([facility])[address] [place] [address] Platelets (Bld) [#/Vol] 162 x10*3/uL Normal 150-450 [facility] Comment on above: Performed By: #### 5 8410-2 ####FLORINDA Monroe ([id number])[facility] ([facility])[address] [place] [address] RBC (Bld) [#/Vol] 3.07 x10*6/uL Low 4.50-5.90 [facility] Comment on above: Performed By: #### 5 8410-2 ####FLORINDA Monroe ([id number])[facility] ([facility])[address] [place] [address] WBC (Bld) [#/Vol] 4.5 x10*3/uL Normal 4.4-11.3 [facility] Comment on above: Performed By: #### 5 8410-2 ####FLORINDA Monroe ([id number])[facility] ([facility])[address] [place] [address] Magnesiumon 06-05-2024 Magnesium [Mass/Vol] 1.75 mg/dL Normal 1.60-2.40 [facility] Comment on above: Performed By: #### 1 9123-9 ####FLORINDA Monroe ([id number])[facility] ([facility])[address] [place] [address] Renal function 2000 panelon 06-05-2024 Albumin BCP dye [Mass/Vol] 3.0 g/dL Low 3.4-5.0 [facility] Comment on above: Performed By: #### 2 4362-6 ####FLORINDA TARANGO L ([id number])[facility] ([facility])[address] [place] [address] Anion gap [Moles/Vol] 15 mmol/L Normal 10-20 [facility] Comment on above: Performed By: #### 2 4362-6 ####FLORINDA Monroe ([id number])[facility] ([facility])[address] [place] [address] Calcium [Mass/Vol] 9.0 mg/dL Normal 8.6-10.6 [facility] Comment on above: Performed By: #### 2 4362-6 ####FLORINDA TARANGO L ([id number])[facility] ([facility])[address] [place] [address] Chloride [Moles/Vol] 99 mmol/L Normal 98-107 [facility] Comment on above: Performed By: #### 2 4362-6 ####FLORINDA TARANGO L ([id number])[facility] ([facility])[address] [place] [address] CO2 [Moles/Vol] 23 mmol/L Normal 21-32 [facility] Comment on above: Performed By: #### 2 4362-6 ####FLORINDA TARANGO L ([id number])[facility] ([facility])[address] [place] [address] Creatinine [Mass/Vol] 3.50 mg/dL High 0.50-1.30 [facility] Comment on above: Performed By: #### 2 4362-6 ####FLORINDA TARANGO L ([id number])[facility] ([facility])[address] [place] [address] Glomerular filtration rate/1.73 sq M.predicted 20 mL/min/1.73m*2 Low >60 [facility] Comment on above: Result Comment: Calc ulations of estimated GFR are performed using the 2020 CKD-EPI Study Refit equation without the race variable for the IDMS-Traceable creatinine methods.https://jasn.asnjournals.org/content/early/ASN. 9470375495 Performed By: #### 2 4362-6 ####FLORINDA Monroe ([id number])[facility] ([facility])[address] [place] [address] Glucose [Mass/Vol] 159 mg/dL High 74-99 [facility] Comment on above: Performed By: #### 2 4362-6 ####FLORINDA Monroe ([id number])[facility] ([facility])[address] [place] [address] Phosphate [Mass/Vol] 4.5 mg/dL Normal 2.5-4.9 [facility] Comment on above: Result Comment: The performance characteristics of phosphorus testing in heparinized plasma have been validated by the individual laboratory site where testing is performed. Testing on heparinized plasma is not approved by the FDA; however, such approval is not necessary. Performed By: #### 2 4362-6 ####FLORINDA Monroe ([id number])[facility] ([facility])[address] [place] [address] Potassium [Moles/Vol] 4.5 mmol/L Normal 3.5-5.3 [facility] Comment on above: Performed By: #### 2 4362-6 ####FLORINDA Monroe ([id number])[facility] ([facility])[address] [place] [address] Sodium [Moles/Vol] 132 mmol/L Low 136-145 [facility] Comment on above: Performed By: #### 2 4362-6 ####FLORINDA Monroe ([id number])[facility] ([facility])[address] [facility] [place] [address] Urea nitrogen [Mass/Vol] 56 mg/dL High 6-23 [facility] Comment on above: Performed By: #### 2 4362-6 ####FLORINDA Monroe ([id number])[facility] ([facility])[address] [facility] [place] [address] Albumin BCP dye [Mass/Vol] 2.9 g/dL Low 3.4-5.0 [facility] Comment on above: Performed By: #### 2 4362-6 ####FLORINDA Monroe ([id number])[facility] ([facility])[address] [place] [address] Anion gap [Moles/Vol] 15 mmol/L Normal 10-20 [facility] Comment on above: Performed By: #### 2 4362-6 ####FLORINDA Monroe ([id number])[facility] ([facility])[address] [place] [address] Calcium [Mass/Vol] 9.1 mg/dL Normal 8.6-10.6 [facility] Comment on above: Performed By: #### 2 4362-6 ####FLORINDA Monroe ([id number])[facility] ([facility])[address] [facility] [place] [address] Chloride [Moles/Vol] 100 mmol/L Normal 98-107 [facility] Comment on above: Performed By: #### 2 4362-6 ####FLORINDA Monroe ([id number])[facility] ([facility])[address] [place] [address] CO2 [Moles/Vol] 23 mmol/L Normal 21-32 [facility] Comment on above: Performed By: #### 2 4362-6 ####FLORINDA Monroe ([id number])[facility] ([facility])[address] [facility] [place] [address] Creatinine [Mass/Vol] 3.43 mg/dL High 0.50-1.30 [facility] Comment on above: Performed By: #### 2 4362-6 ####FLORINDA Monroe ([id number])[facility] ([facility])[address] [place] [address] Glomerular filtration rate/1.73 sq M.predicted 20 mL/min/1.73m*2 Low >60 [facility] Comment on above: Result Comment: Calc ulations of estimated GFR are performed using the 2020 CKD-EPI Study Refit equation without the race variable for the IDMS-Traceable creatinine methods.https://jasn.asnjournals.org/content/early//ASN. 6476217573 Performed By: #### 2 4362-6 ####FLORINDA Monroe ([id number])[facility] ([facility])[address] [place] [address] Glucose [Mass/Vol] 92 mg/dL Normal 74-99 [facility] Comment on above: Performed By: #### 2 4362-6 ####FLORINDA Monroe ([id number])[facility] ([facility])[address] [place] [address] Phosphate [Mass/Vol] 5.1 mg/dL High 2.5-4.9 [facility] Comment on above: Result Comment: The performance characteristics of phosphorus testing in heparinized plasma have been validated by the individual laboratory site where testing is performed. Testing on heparinized plasma is not approved by the FDA; however, such approval is not necessary. Performed By: #### 2 4362-6 ####FLORINDA Monroe ([id number])[facility] ([facility])[address] [place] [address] Potassium [Moles/Vol] 4.3 mmol/L Normal 3.5-5.3 [facility] Comment on above: Performed By: #### 2 4362-6 ####FLORINDA Monroe ([id number])[facility] ([facility])[address] [place] [address] Sodium [Moles/Vol] 134 mmol/L Low 136-145 [facility] Comment on above: Performed By: #### 2 4362-6 ####FLORINDA Monroe ([id number])[facility] ([facility])[address] [place] [address] Urea nitrogen [Mass/Vol] 60 mg/dL High 6-23 [facility] Comment on above: Performed By: #### 2 4362-6 ####FLORINDA Monroe ([id number])[facility] ([facility])[address] [place] [address] Tacrolimuson 06-05-2024 Tacrolimus (Bld) [Mass/Vol] 3.8 ng/mL Normal <=15.0 [facility] Comment on above: Order Comment: NOTE: Result was obtained using achemiluminescent microparticle immunoassay(CMIA) on the [employer] i system.Optimal therapeutic ranges for immunosuppressantdrugs depend upon an individualpatient's current clinical state, type oforgan transplant, time post-transplant,co-administration of other immunosuppressants,and other clinical factors. The results ofthis test should be correlated with additionalclinical and laboratory data before changesin treatment regimens are made. Performed By: #### 1 1253-2 ####FLORINDA Monroe ([id number])[facility] ([facility])[address] [place] [address] CBC panel Auto (Bld)on 06-04 Erythrocyte distribution width (RBC) [Ratio] 14.8 % High 11.5-14.5 [facility] Comment on above: Performed By: #### 5 8410-2 ####FLORINDA Monroe ([id number])[facility] ([facility])[address] [place] [address] Hematocrit (Bld) [Volume fraction] 29.2 % Low 41.0-52.0 [facility] Comment on above: Performed By: #### 5 8410-2 ####FLORINDA Monroe ([id number])[facility] ([facility])[address] [place] [address] Hemoglobin (Bld) [Mass/Vol] 8.9 g/dL Low 13.5-17.5 [facility] Comment on above: Performed By: #### 5 8410-2 ####FLORINDA Monroe ([id number])[facility] ([facility])[address] [place] [address] MCH (RBC) [Entitic mass] 28.3 pg Normal 26.0-34.0 [facility] Comment on above: Performed By: #### 5 8410-2 ####FLORINDA Monroe ([id number])[facility] ([facility])[address] [place] [address] MCHC (RBC) [Mass/Vol] 30.5 g/dL Low 32.0-36.0 [facility] Comment on above: Performed By: #### 5 8410-2 ####FLORINDA Monroe ([id number])[facility] ([facility])[address] [place] [address] MCV (RBC) [Entitic vol] 93 fL Normal 80-100 [facility] Comment on above: Performed By: #### 5 8410-2 ####FLORINDA Monroe ([id number])[facility] ([facility])[address] [place] [address] Nucleated RBC/100 WBC (Bld) [Ratio] 0.0 /100 WBCs Normal 0.0-0.0 [facility] Comment on above: Performed By: #### 5 8410-2 ####FLORINDA Monroe ([id number])[facility] ([facility])[address] [place] [address] Platelets (Bld) [#/Vol] 161 x10*3/uL Normal 150-450 [facility] Comment on above: Performed By: #### 5 8410-2 ####FLORINDA Monroe ([id number])[facility] ([facility])[address] [place] [address] RBC (Bld) [#/Vol] 3.15 x10*6/uL Low 4.50-5.90 [facility] Comment on above: Performed By: #### 5 8410-2 ####FLORINDA Monroe ([id number])[facility] ([facility])[address] [place] [address] WBC (Bld) [#/Vol] 4.8 x10*3/uL Normal 4.4-11.3 [facility] Comment on above: Performed By: #### 5 8410-2 ####FLORINDA Monroe ([id number])[facility] ([facility])[address] [place] [address] Magnesiumon 06-04-2024 Magnesium [Mass/Vol] 1.76 mg/dL Normal 1.60-2.40 [facility] Comment on above: Performed By: #### 1 9123-9 ####FLORINDA Monroe ([id number])[facility] ([facility])[address] [place] [address] Renal function 2000 panelon 06-04-2024 Albumin BCP dye [Mass/Vol] 2.8 g/dL Low 3.4-5.0 [facility] Comment on above: Performed By: #### 2 4362-6 ####FLORINDA Monroe ([id number])[facility] ([facility])[address] [place] [address] Anion gap [Moles/Vol] 15 mmol/L Normal 10-20 [facility] Comment on above: Performed By: #### 2 4362-6 ####FLORINDA Monroe ([id number])[facility] ([facility])[address] [place] [address] Calcium [Mass/Vol] 9.0 mg/dL Normal 8.6-10.6 [facility] Comment on above: Performed By: #### 2 4362-6 ####FLORINDA Monroe ([id number])[facility] ([facility])[address] [place] [address] Chloride [Moles/Vol] 100 mmol/L Normal 98-107 [facility] Comment on above: Performed By: #### 2 4362-6 ####FLORINDA Monroe ([id number])[facility] ([facility])[address] [place] [address] CO2 [Moles/Vol] 23 mmol/L Normal 21-32 [facility] Comment on above: Performed By: #### 2 4362-6 ####FLORINDA Monroe ([id number])[facility] ([facility])[address] [place] [address] Creatinine [Mass/Vol] 3.15 mg/dL High 0.50-1.30 [facility] Comment on above: Performed By: #### 2 4362-6 ####FLORINDA Monroe ([id number])[facility] ([facility])[address] [place] [address] Glomerular filtration rate/1.73 sq M.predicted 22 mL/min/1.73m*2 Low >60 [facility] Comment on above: Result Comment: Calc ulations of estimated GFR are performed using the 2020 CKD-EPI Study Refit equation without the race variable for the IDMS-Traceable creatinine methods.https://jasn.asnjournals.org/content/early//ASN. 9615176133 Performed By: #### 2 4362-6 ####FLORINDA Monroe ([id number])[facility] ([facility])[address] [place] [address] Glucose [Mass/Vol] 165 mg/dL High 74-99 [facility] Comment on above: Performed By: #### 2 4362-6 ####FLORINDA Monroe ([id number])[facility] ([facility])[address] [place] [address] Phosphate [Mass/Vol] 4.7 mg/dL Normal 2.5-4.9 [facility] Comment on above: Result Comment: The performance characteristics of phosphorus testing in heparinized plasma have been validated by the individual laboratory site where testing is performed. Testing on heparinized plasma is not approved by the FDA; however, such approval is not necessary. Performed By: #### 2 4362-6 ####FLORINDA Monroe ([id number])[facility] ([facility])[address] [place] [address] Potassium [Moles/Vol] 4.8 mmol/L Normal 3.5-5.3 [facility] Comment on above: Performed By: #### 2 4362-6 ####FLORINDA Monroe ([id number])[facility] ([facility])[address] [place] [address] Sodium [Moles/Vol] 133 mmol/L Low 136-145 [facility] Comment on above: Performed By: #### 2 4362-6 ####FLORINDA Monroe ([id number])[facility] ([facility])[address] [place] [address] Urea nitrogen [Mass/Vol] 58 mg/dL High 6-23 [facility] Comment on above: Performed By: #### 2 4362-6 ####FLORINDA Monroe ([id number])[facility] ([facility])[address] [place] [address] Albumin BCP dye [Mass/Vol] 2.8 g/dL Low 3.4-5.0 [facility] Comment on above: Performed By: #### 2 4362-6 ####FLORINDA Monroe ([id number])[facility] ([facility])[address] [place] [address] Anion gap [Moles/Vol] 12 mmol/L Normal 10-20 [facility] Comment on above: Performed By: #### 2 4362-6 ####FLORINDA Monroe ([id number])[facility] ([facility])[address] [place] [address] Calcium [Mass/Vol] 9.2 mg/dL Normal 8.6-10.6 [facility] Comment on above: Performed By: #### 2 4362-6 ####FLORINDA Monroe ([id number])[facility] ([facility])[address] [place] [address] Chloride [Moles/Vol] 101 mmol/L Normal 98-107 [facility] Comment on above: Performed By: #### 2 4362-6 ####FLORINDA Monroe ([id number])[facility] ([facility])[address] [place] [address] CO2 [Moles/Vol] 24 mmol/L Normal 21-32 [facility] Comment on above: Performed By: #### 2 4362-6 ####FLORINDA TARANGO L ([id number])[facility] ([facility])[address] [place] [address] Creatinine [Mass/Vol] 3.27 mg/dL High 0.50-1.30 [facility] Comment on above: Performed By: #### 2 4362-6 ####FLORINDA TARANGO L ([id number])[facility] ([facility])[address] [place] [address] Glomerular filtration rate/1.73 sq M.predicted 21 mL/min/1.73m*2 Low >60 [facility] Comment on above: Result Comment: Calc ulations of estimated GFR are performed using the 2020 CKD-EPI Study Refit equation without the race variable for the IDMS-Traceable creatinine methods.https://jasn.asnjournals.org/content//ASN. 7928205022 Performed By: #### 2 4362-6 ####FLORINDA Monroe ([id number])[facility] ([facility])[address] [place] [address] Glucose [Mass/Vol] 87 mg/dL Normal 74-99 [facility] Comment on above: Performed By: #### 2 4362-6 ####FLORINDA TARANGO L ([id number])[facility] ([facility])[address] [place] [address] Phosphate [Mass/Vol] 4.1 mg/dL Normal 2.5-4.9 [facility] Comment on above: Result Comment: The performance characteristics of phosphorus testing in heparinized plasma have been validated by the individual laboratory site where testing is performed. Testing on heparinized plasma is not approved by the FDA; however, such approval is not necessary. Performed By: #### 2 4362-6 ####FLORINDA Monroe ([id number])[facility] ([facility])[address] [place] [address] Potassium [Moles/Vol] 4.3 mmol/L Normal 3.5-5.3 [facility] Comment on above: Performed By: #### 2 4362-6 ####FLORINDA Monroe ([id number])[facility] ([facility])[address] [place] [address] Sodium [Moles/Vol] 133 mmol/L Low 136-145 [facility] Comment on above: Performed By: #### 2 4362-6 ####FLORINDA Monroe ([id number])[facility] ([facility])[address] [place] [address] Urea nitrogen [Mass/Vol] 59 mg/dL High 6-23 [facility] Comment on above: Performed By: #### 2 4362-6 ####FLORINDA Monroe ([id number])[facility] ([facility])[address] [place] [address] Tacrolimuson 06-04-2024 Tacrolimus (Bld) [Mass/Vol] 3.8 ng/mL Normal <=15.0 [facility] Comment on above: Order Comment: NOTE: Result was obtained using achemiluminescent microparticle immunoassay(CMIA) on the Systems [employer] Developer i system.Optimal therapeutic ranges for immunosuppressantdrugs depend upon an individualpatient's current clinical state, type oforgan transplant, time post-transplant,co-administration of other immunosuppressants,and other clinical factors. The results ofthis test should be correlated with additionalclinical and laboratory data before changesin treatment regimens are made. Performed By: #### 1 1253-2 ####FLORINDA Monroe ([id number])[facility] ([facility])[address] [place] [address] Urinalysis complete panel (U )on 06-04-2024 Appearance (U) Turbid Normal Clear [facility] Comment on above: Order Comment: OVER is reported when the result is greater than the clinically reportable range. Performed By: #### 2 4356-8 ####FLORINDA WESTONTZER L ([id number])[facility] ([facility])[address] [place] [address] Bilirubin (U) [Mass/Vol] Negative Normal NEGATIVE [facility] Comment on above: Order Comment: OVER is reported when the result is greater than the clinically reportable range. Performed By: #### 2 4356-8 ####FLORINDA HYDEMOTZER L ([id number])[facility] ([facility])[address] [place] [address] Color (U) Light-[place] Normal Light-Yellow , Yellow, Dark-Yellow [facility] Comment on above: Order Comment: OVER is reported when the result is greater than the clinically reportable range. Performed By: #### 2 4356-8 ####FLORINDA WESTONTZER L ([id number])[facility] ([facility])[address] [place] [address] Glucose Auto test strip (U) [Mass/Vol] Normal Normal Normal [facility] Comment on above: Order Comment: OVER is reported when the result is greater than the clinically reportable range. Performed By: #### 2 4356-8 ####FLORINDA HYDEMOTZER L ([id number])[facility] ([facility])[address] [place] [address] Ketones (U) [Mass/Vol] Negative Normal NEGATIVE [facility] Comment on above: Order Comment: OVER is reported when the result is greater than the clinically reportable range. Performed By: #### 2 4356-8 ####FLORINDA HYDEMOTZER L ([id number])[facility] ([facility])[address] [place] [address] Leukocyte esterase Auto test strip Ql (U) Negative Normal NEGATIVE [facility] Comment on above: Order Comment: OVER is reported when the result is greater than the clinically reportable range. Performed By: #### 2 4356-8 ####FLORINDA HYDEMOTZER L ([id number])[facility] ([facility])[address] [place] [address] Nitrite Auto test strip Ql (U) Negative Normal NEGATIVE [facility] Comment on above: Order Comment: OVER is reported when the result is greater than the clinically reportable range. Performed By: #### 2 4356-8 ####FLORINDA Monroe ([id number])[facility] ([facility])[address] [place] [address] pH (U) 5.5 [pH] Normal 5.0, 5.5, 6.0, 6.5, 7.0, 7.5, 8.0 [facility] Comment on above: Order Comment: OVER is reported when the result is greater than the clinically reportable range. Performed By: #### 2 4356-8 ####FLORINDA Monroe ([id number])[facility] ([facility])[address] [place] [address] Protein (U) [Mass/Vol] 20 (TRACE) Normal NEGATIVE, 10 (TRACE), 20 (TRACE) [facility] Comment on above: Order Comment: OVER is reported when the result is greater than the clinically reportable range. Performed By: #### 2 4356-8 ####FLORINDA Monroe ([id number])[facility] ([facility])[address] [place] [address] RBC (U) [#/Vol] OVER (3+) Abnormal NEGATIVE [facility] Comment on above: Order Comment: OVER is reported when the result is greater than the clinically reportable range. Performed By: #### 2 4356-8 ####FLORINDA Monroe ([id number])[facility] ([facility])[address] [place] [address] Specific gravity (U) [Rel density] 1.010 Normal 1.005-1.035 [facility] Comment on above: Order Comment: OVER is reported when the result is greater than the clinically reportable range. Performed By: #### 2 4356-8 ####FLORINDA Monroe ([id number])[facility] ([facility])[address] [place] [address] Urobilinogen (U) [Mass/Vol] Normal Normal Normal [facility] Comment on above: Order Comment: OVER is reported when the result is greater than the clinically reportable range. Performed By: #### 2 4356-8 ####FLORINDA Monroe ([id number])[facility] ([facility])[address] [place] [address] Urinalysis microscopic panel Auto Ql (U)on 06-04-2024 Hyaline casts Auto (Urine sed) [#/Area] OCCASIONAL Abnormal NONE [facility] Comment on above: Performed By: #### 5 3315-8 ####FLORINDA Monroe ([id number])[facility] ([facility])[address] [place] [address] Mucus Auto (Urine sed) [#/Area] FEW Normal Reference range not established. [facility] Comment on above: Performed By: #### 5 3315-8 ####FLORINDA Monroe ([id number])[facility] ([facility])[address] [place] [address] RBC Auto (Urine sed) [#/Area] >20 Abnormal NONE, 1-2, 3-5 [facility] Comment on above: Performed By: #### 5 3315-8 ####FLORINDA Monroe ([id number])[facility] ([facility])[address] [place] [address] WBC Auto (Urine sed) [#/Area] 6-10 Abnormal 1-5, NONE [facility] Comment on above: Performed By: #### 5 3315-8 ####FLORINDA Monroe ([id number])[facility] ([facility])[address] [place] [address] CBC panel Auto (Bld)on 06-03 Erythrocyte distribution width (RBC) [Ratio] 14.7 % High 11.5-14.5 [facility] Comment on above: Performed By: #### 5 8410-2 ####FLORINDA Monroe ([id number])[facility] ([facility])[address] [place] [address] Hematocrit (Bld) [Volume fraction] 29.9 % Low 41.0-52.0 [facility] Comment on above: Performed By: #### 5 8410-2 ####FLORINDA Monroe ([id number])[facility] ([facility])[address] [place] [address] Hemoglobin (Bld) [Mass/Vol] 9.4 g/dL Low 13.5-17.5 [facility] Comment on above: Performed By: #### 5 8410-2 ####FLORINDA Monroe ([id number])[facility] ([facility])[address] [place] [address] MCH (RBC) [Entitic mass] 28.5 pg Normal 26.0-34.0 [facility] Comment on above: Performed By: #### 5 8410-2 ####FLORINDA Monroe ([id number])[facility] ([facility])[address] [place] [address]81 MCHC (RBC) [Mass/Vol] 31.4 g/dL Low 32.0-36.0 [facility] Comment on above: Performed By: #### 5 8410-2 ####FLORINDA Monroe ([id number])[facility] ([facility])[address] [place] [address] MCV (RBC) [Entitic vol] 91 fL Normal 80-100 [facility] Comment on above: Performed By: #### 5 8410-2 ####FLORINDA Monroe ([id number])[facility] ([facility])[address] [place] [address]32[address] Nucleated RBC/100 WBC (Bld) [Ratio] 0.0 /100 WBCs Normal 0.0-0.0 [facility] Comment on above: Performed By: #### 5 8410-2 ####FLORINDA Monroe ([id number])[facility] ([facility])[address] [place] [address] Platelets (Bld) [#/Vol] 178 x10*3/uL Normal 150-450 [facility] Comment on above: Performed By: #### 5 8410-2 ####FLORINDA Monroe ([id number])[facility] ([facility])[address] [place] [address] RBC (Bld) [#/Vol] 3.30 x10*6/uL Low 4.50-5.90 [facility] Comment on above: Performed By: #### 5 8410-2 ####FLORINDA Monroe ([id number])[facility] ([facility])[address] [place] [address] WBC (Bld) [#/Vol] 5.5 x10*3/uL Normal 4.4-11.3 [facility] Comment on above: Performed By: #### 5 8410-2 ####FLORINDA Monroe ([id number])[facility] ([facility])[address] [place] [address]76[address] Magnesiumon 06-03-2024 Magnesium [Mass/Vol] 1.94 mg/dL Normal 1.60-2.40 [facility] Comment on above: Performed By: #### 1 9123-9 ####FLORINDA Monroe ([id number])[facility] ([facility])[address] [place] [address]40 Renal function 2000 panelon 06-03-2024 Albumin BCP dye [Mass/Vol] 2.9 g/dL Low 3.4-5.0 [facility] Comment on above: Performed By: #### 2 4362-6 ####FLORINDA Monroe ([id number])[facility] ([facility])[address] [place] [address]67[address] Anion gap [Moles/Vol] 15 mmol/L Normal 10-20 [facility] Comment on above: Performed By: #### 2 4362-6 ####FLORINDA Monore ([id number])[facility] ([facility])[address] [place] [address] Calcium [Mass/Vol] 9.3 mg/dL Normal 8.6-10.6 [facility] Comment on above: Performed By: #### 2 4362-6 ####FLORINDA Monroe ([id number])[facility] ([facility])[address] [facility] [place] [address] Chloride [Moles/Vol] 101 mmol/L Normal 98-107 [facility] Comment on above: Performed By: #### 2 4362-6 ####FLORINDA TARANGO L ([id number])[facility] ([facility])[address] [place] [address] CO2 [Moles/Vol] 23 mmol/L Normal 21-32 [facility] Comment on above: Performed By: #### 2 4362-6 ####FLORINDA TARANGO L ([id number])[facility] ([facility])[address] [place] [address] Creatinine [Mass/Vol] 3.41 mg/dL High 0.50-1.30 [facility] Comment on above: Performed By: #### 2 4362-6 ####FLORINDA TARANGO L ([id number])[facility] ([facility])[address] [place] [address] Glomerular filtration rate/1.73 sq M.predicted 20 mL/min/1.73m*2 Low >60 [facility] Comment on above: Result Comment: Calc ulations of estimated GFR are performed using the 2020 CKD-EPI Study Refit equation without the race variable for the IDMS-Traceable creatinine methods.https://jasn.asnjournals.org/content//ASN. 9150285491 Performed By: #### 2 4362-6 ####FLORINDA TARANGO L ([id number])[facility] ([facility])[address] [place] [address] Glucose [Mass/Vol] 80 mg/dL Normal 74-99 [facility] Comment on above: Performed By: #### 2 4362-6 ####FLORINDA TARANGO L ([id number])[facility] ([facility])[address] [place] [address] Phosphate [Mass/Vol] 4.4 mg/dL Normal 2.5-4.9 [facility] Comment on above: Result Comment: The performance characteristics of phosphorus testing in heparinized plasma have been validated by the individual laboratory site where testing is performed. Testing on heparinized plasma is not approved by the FDA; however, such approval is not necessary. Performed By: #### 2 4362-6 ####FLORINDA Monroe ([id number])[facility] ([facility])[address] [place] [address] Potassium [Moles/Vol] 4.8 mmol/L Normal 3.5-5.3 [facility] Comment on above: Performed By: #### 2 4362-6 ####FLORINDA Monroe ([id number])[facility] ([facility])[address] [place] [address] 35860 Sodium [Moles/Vol] 134 mmol/L Low 136-145 [facility] Comment on above: Performed By: #### 2 4362-6 ####FLORINDA Monroe ([id number])[facility] ([facility])[address] [place] [address]4536 Urea nitrogen [Mass/Vol] 61 mg/dL High 6-23 [facility] Comment on above: Performed By: #### 2 4362-6 ####FLORINDA Monroe ([id number])[facility] ([facility])[address] [place] [address] 87575 Tacrolimuson 06-03-2024 Tacrolimus (Bld) [Mass/Vol] 3.2 ng/mL Normal <=15.0 [facility] Comment on above: Order Comment: NOTE: Result was obtained using achemiluminescent microparticle immunoassay(CMIA) on the [employer] Developer i system.Optimal therapeutic ranges for immunosuppressantdrugs depend upon an individualpatient's current clinical state, type oforgan transplant, time post-transplant,co-administration of other immunosuppressants,and other clinical factors. The results ofthis test should be correlated with additionalclinical and laboratory data before changesin treatment regimens are made. Performed By: #### 1 1253-2 ####FLORINDA Monroe ([id number])[facility] ([facility])[id number] [place] [address] 77776 CBC panel Auto (Bld)on 06-02 Erythrocyte distribution width (RBC) [Ratio] 14.8 % High 11.5-14.5 [facility] Comment on above: Performed By: #### 5 8410-2 ####FLORINDA Monroe ([id number])[facility] ([facility])[address] [place] [address]397 Hematocrit (Bld) [Volume fraction] 30.4 % Low 41.0-52.0 [facility] Comment on above: Performed By: #### 5 8410-2 ####FLORINDA Monroe ([id number])[facility] ([facility])[address] [place] [address] 20167 Hemoglobin (Bld) [Mass/Vol] 9.8 g/dL Low 13.5-17.5 [facility] Comment on above: Performed By: #### 5 8410-2 ####FLORINDA Monroe ([id number])[facility] ([facility])[address] [place] [address] 07196 MCH (RBC) [Entitic mass] 29.5 pg Normal 26.0-34.0 [facility] Comment on above: Performed By: #### 5 8410-2 ####FLORINDA Monroe ([id number])[facility] ([facility])[address] [place] [address] 54285 MCHC (RBC) [Mass/Vol] 32.2 g/dL Normal 32.0-36.0 [facility] Comment on above: Performed By: #### 5 8410-2 ####FLORINDA Monroe ([id number])[facility] ([facility])[address] [place] [address] 83080 MCV (RBC) [Entitic vol] 92 fL Normal 80-100 [facility] Comment on above: Performed By: #### 5 8410-2 ####FLORINDA Monroe ([id number])[facility] ([facility])[address] [place] [address] 87835 Nucleated RBC/100 WBC (Bld) [Ratio] 0.0 /100 WBCs Normal 0.0-0.0 [facility] Comment on above: Performed By: #### 5 8410-2 ####FLORINDA Monroe ([id number])[facility] ([facility])[address] [place] [address] Platelets (Bld) [#/Vol] 165 x10*3/uL Normal 150-450 [facility] Comment on above: Performed By: #### 5 8410-2 ####FLORINDA Monroe ([id number])[facility] ([facility])[address] [place] [address] RBC (Bld) [#/Vol] 3.32 x10*6/uL Low 4.50-5.90 [facility] Comment on above: Performed By: #### 5 8410-2 ####FLORINDA Monroe ([id number])[facility] ([facility])[address] [place] [address] WBC (Bld) [#/Vol] 5.1 x10*3/uL Normal 4.4-11.3 [facility] Comment on above: Performed By: #### 5 8410-2 ####FLORINDA Monroe ([id number])[facility] ([facility])[address] [place] [address] Meli 06-02-2024 CNPN Telephone (CATR) MARIAN KOCH ([id number]) 1970 M Date Time Provider Department 06/02/24 [facility] During your visit today, we recorded the following information about you: Bebe Guadarrama, RN 06/02/2024 3:50 PM Signed Patient called in stating that he is currently an [place] [facility] [place] [facility]. States that he has had 2 heart caths and they were unable to open in vessel up during it. Patient states that with med changes his heart seems to be doing better but he is now having kidney issues. Patient states they are planning to order cardiac rehab on discharge. Patient to keep us updated. Bebe Guadarrama RN Allergies As of Date: 06/02/2024 Noted Allergy Reaction BEE STING 02/20/2010 4 - Hives 7 - Swelling DARVOCET-N 100 (PROPOXYPHENE N-AC*02/20/2010 4 - Hives Date Reviewed: 03/31/2024 Reviewed by: Melissa Galan LPN - Fully Assessed Reason for Visit: Patient Update [1234] Prescriptions as of 06/03/2024 - ferrous sulfate 325 mg (65 mg iron) EC tablet Take 1 tablet by mouth. - Cholecalciferol, Vitamin D3, 50 mcg (2,000 unit) cap Take 100 mcg by mouth. - furosemide (LASIX) 20 mg tablet Take 20 mg by mouth every 48 hours. - albuterol HFA (PROVENTIL HFA, VENTOLIN HFA) 90 mcg/actuation inhaler Inhale 2 Puffs as instructed every 6 hours as needed. - tacrolimus ER (ASTAGRAF XL) 1 mg capsule Take 1 capsule by mouth every 24 hours. 0.5mg daily - ipratropium-albuterol (DUONEB) 0.5 mg-3 mg(2.5 mg base)/3 mL nebu Inhale 3 mL as instructed every 6 hours as needed for wheezing/shortness of breath. - gabapentin (NEURONTIN) 300 mg capsule Take 1 capsule by mouth three times a day for 90 days. - omeprazole (PRILOSEC) 40 mg capsule Take 1 capsule by mouth once daily. - sulfamethoxazole-trimethopri m (BACTRIM) 400-80 mg per tablet Take 1 tablet by mouth every afternoon. - Fluorouracil 5 % cream - alendronate (FOSAMAX) 70 mg tablet Take 1 tablet by mouth one time a week. Take with a full glass of water, on an empty stomach; do NOT lie down for 30minutes. - atorvastatin (LIPITOR) 80 mg tablet Take 1 tablet by mouth daily at bedtime. - CARDURA XL 8 mg 24 hr tablet TAKE 1 TABLET BY MOUTH EVERY DAY WITH BREAKFAST - predniSONE (DELTASONE) 5 mg tablet Take 1 tablet by mouth once daily. - amLODIPine (NORVASC) 5 mg tablet Take 10 mg by mouth once daily. - carvedilol (COREG) 25 mg tablet Take 1 tablet by mouth twice daily with meals. - acetaminophen (TYLENOL) 500 mg tablet Take 500 mg by mouth every 8 hours as needed. - mycophenolate mofetil (CELLCEPT) 250 mg capsule Take 500 mg by mouth twice daily. - magnesium oxide 400 mg cap Take 1 capsule by mouth twice daily. - ASPIRIN 81 MG TAB Take one(1) tablet daily. Problem List As Of Date 06/02/2024 Noted Resolved Renal failure, chronic, stage 3 (moderate) [N18*02/20/2010 CAD (coronary artery disease) [I25.10] 02/20/2010 Dialysis patient [Z99.2] 02/20/2010 11/28/2012 DVT (deep venous thrombosis) ([facility]) [I82.409] 09/28/2010 VIC (obstructive sleep apnea) [G47.33] 08/04/2011 Depression [F32.A] 03/07/2012 H/O kidney transplant [Z94.0] 11/28/2012 GERD (gastroesophageal reflux disease) [K21.9] 03/05/2014 Chronic left-sided low back pain with left-side*06/21/2016 Bilateral leg pain [M79.604, M79.605] 11/28/2016 Iliotibial band syndrome [M76.30] 11/28/2016 Radiculopathy, lumbar region [M54.16] 11/28/2016 Claudication of both lower extremities (HCC) [I*08/22/2017 Neurogenic bladder [N31.9] 12/08/2017 Hyperparathyroidism (HCC) [E21.3] 12/08/2017 Hyperhomocysteinemia (HCC) [E72.11] 12/08/2017 Pulmonary nodules [R91.8] Renal stones [N20.0] RLQ abdominal pain [R10.31] 01/06/2018 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/07/2018 Coronary artery disease of [place] artery [place]*01/07/2018 Chronic pain syndrome [G89.4] 08/09/2018 Other osteoporosis without current pathological*09/21/2018 Current mild episode of major depressive disord*02/05/2019 COPD (chronic obstructive pulmonary disease) (H*06/09/2021 Mixed hyperlipidemia [E78.2] 06/09/2021 Palpitations [R00.2] 06/09/2021 Screen for colon cancer [Z12.11] 06/09/2021 06/14/2021 Cataracta [H26.9] 03/06/2022 Traumatic incomplete tear of left rotator cuff *09/15/2022 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 Abnormal EKG [R94.31] 12/14/2022 VHD (valvular heart disease) [I38] 12/17/2022 Pulmonary hypertension (HCC) [I27.20] 12/17/2022 S/P shoulder surgery [Z98.890] 01/25/2023 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] 03/31/2024 Encounter Status:Closed by BEBE GUADARRAMA on 06/03/24 Normal [facility] CT ABDOMEN PELVIS WO IV CONT RASTon 06-02-2024 CT ABDOMEN PELVIS WO IV CONTRAST Normal [facility] ELECTROLYTE PANEL, URINEon 0 06-02-2024 Chloride (U) [Moles/Vol] 68 mmol/L Normal [facility] Comment on above: Performed By: #### E LCS2 ####FLORINDA Monroe ([id number])[facility] ([facility])[address] [place] [address] CHLORIDE/CREATININE (MMOL/G) IN URINE 161 mmol/g creat Normal 23-275 [facility] Comment on above: Performed By: #### E LCS2 ####FLORINDA Monroe ([id number])[facility] ([facility])[address] [place] [address] Creatinine (U) [Mass/Vol] 42.2 mg/dL Normal 20.0-370.0 [facility] Comment on above: Performed By: #### E LCS2 ####FLORINDA Monroe ([id number])[facility] ([facility])[id number] [place] [address] Performed By: #### 2 7298-9 ####FLORINDA Monroe ([id number])[facility] ([facility])[address] [place] [address] Performed By: #### 3 095-7 ####FLORINDA Monroe ([id number])[facility] ([facility])[address] [place] [address] Potassium (U) [Moles/Vol] 23 mmol/L Normal [facility] Comment on above: Performed By: #### E LCS2 ####FLORINDA Monroe ([id number])[facility] ([facility])[id number] [place] [address] Potassium/Creatinin e (U) [Ratio] 55 mmol/g Creat Normal Not established [facility] Comment on above: Performed By: #### E LCS2 ####FLORINDA Monroe ([id number])[facility] ([facility])[id number] [place] [address] Sodium (U) [Moles/Vol] 63 mmol/L Normal [facility] Comment on above: Performed By: #### E LCS2 ####FLORINDA Monroe ([id number])[facility] ([facility])[address] [place] [address] Sodium/Creatinine (U) [Ratio] 149 mmol/g Creat Normal Not established. [facility] Comment on above: Performed By: #### E LCS2 ####FLORINDA Monroe ([id number])[facility] ([facility])[address] [place] [address] Magnesiumon 06-02-2024 Magnesium [Mass/Vol] 1.85 mg/dL Normal 1.60-2.40 [facility] Comment on above: Performed By: #### 1 9123-9 ####FLORINDA Monroe ([id number])[facility] ([facility])[address] [place] [address] Magnesium [Mass/Vol] 1.98 mg/dL Normal 1.60-2.40 [facility] Comment on above: Performed By: #### 1 9123-9 ####FLORINDA Monroe ([id number])[facility] ([facility])[address] [place] [address] Proteinon 06-02-2024 Protein Qn (U) 11 mg/dL Normal 5-25 [facility] Comment on above: Performed By: #### 2 7298-9 ####FLORINDA Monroe ([id number])[facility] ([facility])[address] [place] [address] Protein Qn (U)on 06-02-2024 Protein/Creatinine (U) [Mass ratio] 0.26 mg/mg Creat High 0.00-0.17 [facility] Comment on above: Performed By: #### 2 7298-9 ####FLORINDA Monroe ([id number])[facility] ([facility])[id number] [place] [address] Renal function 2000 panelon 06-02-2024 Albumin BCP dye [Mass/Vol] 2.7 g/dL Low 3.4-5.0 [facility] Comment on above: Performed By: #### 2 4362-6 ####FLORINDA Monroe ([id number])[facility] ([facility])[address] [place] [address] Anion gap [Moles/Vol] 14 mmol/L Normal 10-20 [facility] Comment on above: Performed By: #### 2 4362-6 ####FLORINDA Monroe ([id number])[facility] ([facility])[address] [place] [address] Calcium [Mass/Vol] 9.3 mg/dL Normal 8.6-10.6 [facility] Comment on above: Performed By: #### 2 4362-6 ####FLORINDA Monroe ([id number])[facility] ([facility])[address] [place] [address] Chloride [Moles/Vol] 101 mmol/L Normal 98-107 [facility] Comment on above: Performed By: #### 2 4362-6 ####FLORINDA Monroe ([id number])[facility] ([facility])[address] [place] [address] CO2 [Moles/Vol] 23 mmol/L Normal 21-32 [facility] Comment on above: Performed By: #### 2 4362-6 ####FLORINDA Monroe ([id number])[facility] ([facility])[address] [place] [address] Creatinine [Mass/Vol] 3.44 mg/dL High 0.50-1.30 [facility] Comment on above: Performed By: #### 2 4362-6 ####FLORINDA Monroe ([id number])[facility] ([facility])[address] [place] [address] Glomerular filtration rate/1.73 sq M.predicted 20 mL/min/1.73m*2 Low >60 [facility] Comment on above: Result Comment: Calc ulations of estimated GFR are performed using the 2020 CKD-EPI Study Refit equation without the race variable for the IDMS-Traceable creatinine methods.https://jasn.asnjournals.org/content/early//ASN. 4803800564 Performed By: #### 2 4362-6 ####FLORINDA Monroe ([id number])[facility] ([facility])[address] [place] [address] Glucose [Mass/Vol] 181 mg/dL High 74-99 [facility] Comment on above: Performed By: #### 2 4362-6 ####FLORINDA Monroe ([id number])[facility] ([facility])[address] [place] [address] Phosphate [Mass/Vol] 4.0 mg/dL Normal 2.5-4.9 [facility] Comment on above: Result Comment: The performance characteristics of phosphorus testing in heparinized plasma have been validated by the individual laboratory site where testing is performed. Testing on heparinized plasma is not approved by the FDA; however, such approval is not necessary. Performed By: #### 2 4362-6 ####FLORINDA Monroe ([id number])[facility] ([facility])[address] [place] [address] Potassium [Moles/Vol] 4.8 mmol/L Normal 3.5-5.3 [facility] Comment on above: Performed By: #### 2 4362-6 ####FLORINDA Monroe ([id number])[facility] ([facility])[address] [place] [address] Sodium [Moles/Vol] 133 mmol/L Low 136-145 [facility] Comment on above: Performed By: #### 2 4362-6 ####FLORINDA Monroe ([id number])[facility] ([facility])[address] [place] [address] Urea nitrogen [Mass/Vol] 56 mg/dL High 6-23 [facility] Comment on above: Performed By: #### 2 4362-6 ####FLORINDA Monroe ([id number])[facility] ([facility])[address] [place] [address] Albumin BCP dye [Mass/Vol] 2.6 g/dL Low 3.4-5.0 [facility] Comment on above: Performed By: #### 2 4362-6 ####FLORINDA Monroe ([id number])[facility] ([facility])[address] [place] [address] Anion gap [Moles/Vol] 12 mmol/L Normal 10-20 [facility] Comment on above: Performed By: #### 2 4362-6 ####FLORINDA Monroe ([id number])[facility] ([facility])[address] [place] [address] Calcium [Mass/Vol] 9.6 mg/dL Normal 8.6-10.6 [facility] Comment on above: Performed By: #### 2 4362-6 ####FLORINDA Monroe ([id number])[facility] ([facility])[address] [place] [address] Chloride [Moles/Vol] 102 mmol/L Normal 98-107 [facility] Comment on above: Performed By: #### 2 4362-6 ####FLORINDA Monroe ([id number])[facility] ([facility])[address] [place] [address] CO2 [Moles/Vol] 23 mmol/L Normal 21-32 [facility] Comment on above: Performed By: #### 2 4362-6 ####FLORINDA TARANGO L ([id number])[facility] ([facility])[address] [place] [address] Creatinine [Mass/Vol] 3.24 mg/dL High 0.50-1.30 [facility] Comment on above: Performed By: #### 2 4362-6 ####FLORINDA Monroe ([id number])[facility] ([facility])[address] [place] [address] Glomerular filtration rate/1.73 sq M.predicted 22 mL/min/1.73m*2 Low >60 [facility] Comment on above: Result Comment: Calc ulations of estimated GFR are performed using the 2020 CKD-EPI Study Refit equation without the race variable for the IDMS-Traceable creatinine methods.https://jasn.asnjournals.org/content/early/ASN. 7739900103 Performed By: #### 2 4362-6 ####FLORINDA Monroe ([id number])[facility] ([facility])[address] [place] [address] Glucose [Mass/Vol] 92 mg/dL Normal 74-99 [facility] Comment on above: Performed By: #### 2 4362-6 ####FLORINDA Monroe ([id number])[facility] ([facility])[address] [place] [address] Phosphate [Mass/Vol] 4.5 mg/dL Normal 2.5-4.9 [facility] Comment on above: Result Comment: The performance characteristics of phosphorus testing in heparinized plasma have been validated by the individual laboratory site where testing is performed. Testing on heparinized plasma is not approved by the FDA; however, such approval is not necessary. Performed By: #### 2 4362-6 ####FLORINDA Monroe ([id number])[facility] ([facility])[address] [place] [address] Potassium [Moles/Vol] 4.9 mmol/L Normal 3.5-5.3 [facility] Comment on above: Performed By: #### 2 4362-6 ####FLORINDA Monroe ([id number])[facility] ([facility])[address] [place] [address] Sodium [Moles/Vol] 132 mmol/L Low 136-145 [facility] Comment on above: Performed By: #### 2 4362-6 ####FLORINDA Monroe ([id number])[facility] ([facility])[address] [place] [address] Urea nitrogen [Mass/Vol] 58 mg/dL High 6-23 [facility] Comment on above: Performed By: #### 2 4362-6 ####FLORINDA Monroe ([id number])[facility] ([facility])[address] [place] [address] Tacrolimuson 06-02-2024 Tacrolimus (Bld) [Mass/Vol] 3.6 ng/mL Normal <=15.0 [facility] Comment on above: Order Comment: NOTE: Result was obtained using achemiluminescent microparticle immunoassay(CMIA) on the [employer] i system.Optimal therapeutic ranges for immunosuppressantdrugs depend upon an individualpatient's current clinical state, type oforgan transplant, time post-transplant,co-administration of other immunosuppressants,and other clinical factors. The results ofthis test should be correlated with additionalclinical and laboratory data before changesin treatment regimens are made. Performed By: #### 1 1253-2 ####FLORINDA Monroe ([id number])[facility] ([facility])[address] [place] [address] Urea nitrogenon 06-02-2024 Urea nitrogen (U) [Mass/Vol] 350 mg/dL Normal [facility] Comment on above: Performed By: #### 3 095-7 ####FLORINDA Monroe ([id number])[facility] ([facility])[address] [place] [address] Urea nitrogen (U) [Mass/Vol] on 06-02-2024 Urea/Creatinine (U) [Molar ratio] 8.3 g/g creat Normal Not established. [facility] Comment on above: Performed By: #### 3 095-7 ####FLORINDA Monroe ([id number])[facility] ([facility])[address] [place] [address] CBC panel Auto (Bld)on 06-01 Erythrocyte distribution width (RBC) [Ratio] 15.1 % High 11.5-14.5 [facility] Comment on above: Performed By: #### 5 8410-2 ####FLORINDA Monroe ([id number])[facility] ([facility])[address] [place] [address] Hematocrit (Bld) [Volume fraction] 32.7 % Low 41.0-52.0 [facility] Comment on above: Performed By: #### 5 8410-2 ####FLORINDA Monroe ([id number])[facility] ([facility])[address] [place] [address] Hemoglobin (Bld) [Mass/Vol] 10.1 g/dL Low 13.5-17.5 [facility] Comment on above: Performed By: #### 5 8410-2 ####FLORINDA Monroe ([id number])[facility] ([facility])[address] [place] [address] MCH (RBC) [Entitic mass] 28.9 pg Normal 26.0-34.0 [facility] Comment on above: Performed By: #### 5 8410-2 ####FLORINDA TARANGO L ([id number])[facility] ([facility])[address] [place] [address] MCHC (RBC) [Mass/Vol] 30.9 g/dL Low 32.0-36.0 [facility] Comment on above: Performed By: #### 5 8410-2 ####FLORINDA Monroe ([id number])[facility] ([facility])[address] [place] [address] MCV (RBC) [Entitic vol] 94 fL Normal 80-100 [facility] Comment on above: Performed By: #### 5 8410-2 ####FLORINDA Monroe ([id number])[facility] ([facility])[address] [place] [address] Nucleated RBC/100 WBC (Bld) [Ratio] 0.0 /100 WBCs Normal 0.0-0.0 [facility] Comment on above: Performed By: #### 5 8410-2 ####FLORINDA Monroe ([id number])[facility] ([facility])[address] [place] [address] Platelets (Bld) [#/Vol] 157 x10*3/uL Normal 150-450 [facility] Comment on above: Performed By: #### 5 8410-2 ####FLORINDA Monroe ([id number])[facility] ([facility])[address] [place] [address] RBC (Bld) [#/Vol] 3.49 x10*6/uL Low 4.50-5.90 [facility] Comment on above: Performed By: #### 5 8410-2 ####FLORINDA Monroe ([id number])[facility] ([facility])[address] [place] [address] WBC (Bld) [#/Vol] 5.9 x10*3/uL Normal 4.4-11.3 [facility] Comment on above: Performed By: #### 5 8410-2 ####FLORINDA Monroe ([id number])[facility] ([facility])[address] [place] [address] ECG 12-LEADon 06-01-2024 ECG 12-LEAD Ventricular Rate 61 Atrial Rate 61 P-R Interval 136 QRS Duration 146 Q-T Interval 428 QTC Calculation(Bazett) 430 P Afton 30 R Afton -66 T Afton 53 QRS Count 10 Q Onset 218 P Onset 150 P Offset 197 T Offset 432 QTC Fredericia 430 Diagnosis Normal sinus rhythm Left axis deviation Right bundle branch block Inferior infarct , age undetermined Abnormal ECG When compared with ECG of 25-MAY-2024 12:11, Sinus rhythm has replaced Atrial fibrillation Vent. rate has decreased BY 34 BPM QT has shortened Normal [facility] ECG 12-LEAD Ventricular Rate 61 Atrial Rate 61 P-R Interval 136 QRS Duration 146 Q-T Interval 428 QTC Calculation(Bazett) 430 P Afton 30 R Afton -66 T Afton 53 QRS Count 10 Q Onset 218 P Onset 150 P Offset 197 T Offset 432 QTC Fredericia 430 Diagnosis Normal sinus rhythm Left axis deviation Right bundle branch block Inferior infarct , age undetermined Abnormal ECG When compared with ECG of 25-MAY-2024 12:11, Sinus rhythm has replaced Atrial fibrillation Vent. rate has decreased BY 34 BPM QT has shortened Confirmed by Neena Agarwal ([id number]) on 06/06/2024 4:31:10 PM Normal [facility] Magnesiumon 06-01-2024 Magnesium [Mass/Vol] 1.97 mg/dL Normal 1.60-2.40 [facility] Comment on above: Performed By: #### 1 9123-9 ####FLORINDA Monroe ([id number])[facility] ([facility])[id number] [place] [address] Magnesium [Mass/Vol] 2.04 mg/dL Normal 1.60-2.40 [facility] Comment on above: Performed By: #### 1 9123-9 ####FLORINDA Monroe ([id number])[facility] ([facility])[address] [place] [address] Renal function 2000 panelon 06-01-2024 Albumin BCP dye [Mass/Vol] 2.8 g/dL Low 3.4-5.0 [facility] Comment on above: Performed By: #### 2 4362-6 ####FLORINDA Monroe ([id number])[facility] ([facility])[address] [place] [address] Anion gap [Moles/Vol] 15 mmol/L Normal 10-20 [facility] Comment on above: Performed By: #### 2 4362-6 ####FLORINDA WESTONTZER L ([id number])[facility] ([facility])[address] [place] [address] Calcium [Mass/Vol] 9.6 mg/dL Normal 8.6-10.6 [facility] Comment on above: Performed By: #### 2 4362-6 ####FLORINDA HYDEMOTZER L ([id number])[facility] ([facility])[address] [place] [address] Chloride [Moles/Vol] 102 mmol/L Normal 98-107 [facility] Comment on above: Performed By: #### 2 4362-6 ####FLORINDA ROSEER L ([id number])[facility] ([facility])[address] [place] [address] CO2 [Moles/Vol] 22 mmol/L Normal 21-32 [facility] Comment on above: Performed By: #### 2 4362-6 ####FLORINDA ROSEER L ([id number])[facility] ([facility])[address] [place] [address] Creatinine [Mass/Vol] 3.17 mg/dL High 0.50-1.30 [facility] Comment on above: Performed By: #### 2 4362-6 ####FLORINDA HYDEMOTZER L ([id number])[facility] ([facility])[address] [place] [address] Glomerular filtration rate/1.73 sq M.predicted 22 mL/min/1.73m*2 Low >60 [facility] Comment on above: Result Comment: Calc ulations of estimated GFR are performed using the 2020 CKD-EPI Study Refit equation without the race variable for the IDMS-Traceable creatinine methods.https://jasn.asnjournals.org/content/early/ASN. 5605470493 Performed By: #### 2 4362-6 ####FLORINDA TARANGO L ([id number])[facility] ([facility])[address] [place] [address] Glucose [Mass/Vol] 124 mg/dL High 74-99 [facility] Comment on above: Performed By: #### 2 4362-6 ####FLORINDA Monroe ([id number])[facility] ([facility])[address] [place] [address] Phosphate [Mass/Vol] 4.2 mg/dL Normal 2.5-4.9 [facility] Comment on above: Result Comment: The performance characteristics of phosphorus testing in heparinized plasma have been validated by the individual laboratory site where testing is performed. Testing on heparinized plasma is not approved by the FDA; however, such approval is not necessary. Performed By: #### 2 4362-6 ####FLORINDA Monroe ([id number])[facility] ([facility])[address] [place] [address] Potassium [Moles/Vol] 5.2 mmol/L Normal 3.5-5.3 [facility] Comment on above: Performed By: #### 2 4362-6 ####FLORINDA Monroe ([id number])[facility] ([facility])[address] [place] [address] Sodium [Moles/Vol] 134 mmol/L Low 136-145 [facility] Comment on above: Performed By: #### 2 4362-6 ####FLORINDA Monroe ([id number])[facility] ([facility])[address] [place] [address] Urea nitrogen [Mass/Vol] 62 mg/dL High 6-23 [facility] Comment on above: Performed By: #### 2 4362-6 ####FLORINDA Monroe ([id number])[facility] ([facility])[address] [place] [address] Albumin BCP dye [Mass/Vol] 2.6 g/dL Low 3.4-5.0 [facility] Comment on above: Performed By: #### 2 4362-6 ####FLORINDA Monroe ([id number])[facility] ([facility])[address] [place] [address] Anion gap [Moles/Vol] 13 mmol/L Normal 10-20 [facility] Comment on above: Performed By: #### 2 4362-6 ####FLORINDA TARANGO L ([id number])[facility] ([facility])[address] [place] [address] Calcium [Mass/Vol] 9.2 mg/dL Normal 8.6-10.6 [facility] Comment on above: Performed By: #### 2 4362-6 ####FLORINDA TARANGO L ([id number])[facility] ([facility])[address] [place] [address] Chloride [Moles/Vol] 102 mmol/L Normal 98-107 [facility] Comment on above: Performed By: #### 2 4362-6 ####FLORINDA TARANGO L ([id number])[facility] ([facility])[address] [place] [address] CO2 [Moles/Vol] 25 mmol/L Normal 21-32 [facility] Comment on above: Performed By: #### 2 4362-6 ####FLORINDA Monroe ([id number])[facility] ([facility])[address] [place] [address] Creatinine [Mass/Vol] 3.18 mg/dL High 0.50-1.30 [facility] Comment on above: Performed By: #### 2 4362-6 ####FLORINDA TARANGO L ([id number])[facility] LAB ([facility])[address] [place] [address] Glomerular filtration rate/1.73 sq M.predicted 22 mL/min/1.73m*2 Low >60 [facility] Comment on above: Result Comment: Calc ulations of estimated GFR are performed using the 2020 CKD-EPI Study Refit equation without the race variable for the IDMS-Traceable creatinine methods.https://jasn.asnjournals.org/content//ASN. 5220490021 Performed By: #### 2 4362-6 ####FLORINDA Monroe ([id number])[facility] ([facility])[address] [place] [address] Glucose [Mass/Vol] 93 mg/dL Normal 74-99 [facility] Comment on above: Performed By: #### 2 4362-6 ####FLORINDA Monroe ([id number])[facility] ([facility])[address] [place] [address] Phosphate [Mass/Vol] 3.7 mg/dL Normal 2.5-4.9 [facility] Comment on above: Result Comment: The performance characteristics of phosphorus testing in heparinized plasma have been validated by the individual laboratory site where testing is performed. Testing on heparinized plasma is not approved by the FDA; however, such approval is not necessary. Performed By: #### 2 4362-6 ####FLORINDA Monroe ([id number])[facility] ([facility])[address] [place] [address] Potassium [Moles/Vol] 5.0 mmol/L Normal 3.5-5.3 [facility] Comment on above: Performed By: #### 2 4362-6 ####FLORINDA Monroe ([id number])[facility] ([facility])[address] [place] [address] Sodium [Moles/Vol] 135 mmol/L Low 136-145 [facility] Comment on above: Performed By: #### 2 4362-6 ####FLORINDA Monroe ([id number])[facility] ([facility])[address] [place] [address] Urea nitrogen [Mass/Vol] 59 mg/dL High 6-23 [facility] Comment on above: Performed By: #### 2 4362-6 ####FLORINDA Monroe ([id number])[facility] ([facility])[address] [place] [address] Tacrolimuson 06-01-2024 Tacrolimus (Bld) [Mass/Vol] 3.4 ng/mL Normal <=15.0 [facility] Comment on above: Order Comment: NOTE: Result was obtained using achemiluminescent microparticle immunoassay(CMIA) on the [employer] i system.Optimal therapeutic ranges for immunosuppressantdrugs depend upon an individualpatient's current clinical state, type oforgan transplant, time post-transplant,co-administration of other immunosuppressants,and other clinical factors. The results ofthis test should be correlated with additionalclinical and laboratory data before changesin treatment regimens are made. Performed By: #### 1 1253-2 ####FLORINDA Monroe ([id number])[facility] ([facility])[address] [place] [address] CBC W Auto Differential pane l (Bld)on 05-31-2024 Basophils (Bld) [#/Vol] 0.02 x10*3/uL Normal 0.00-0.10 [facility] Comment on above: Performed By: #### 5 7021-8 ####FLORINDA Monroe ([id number])[facility] ([facility])[address] [place] [address] Basophils/100 WBC (Bld) 0.4 % Normal 0.0-2.0 [facility] Comment on above: Performed By: #### 5 7021-8 ####FLORINDA Monroe ([id number])[facility] ([facility])[address] [place] [address] Eosinophils (Bld) [#/Vol] 0.05 x10*3/uL Normal 0.00-0.70 [facility] Comment on above: Performed By: #### 5 7021-8 ####FLORINDA Monroe ([id number])[facility] ([facility])[address] [place] [address] Eosinophils/100 WBC (Bld) 1.1 % Normal 0.0-6.0 [facility] Comment on above: Performed By: #### 5 7021-8 ####FLORINDA Monroe ([id number])[facility] ([facility])[address] [place] [address] Erythrocyte distribution width (RBC) [Ratio] 15.1 % High 11.5-14.5 [facility] Comment on above: Performed By: #### 5 7021-8 ####FLORINDA Monroe ([id number])[facility] ([facility])[address] [place] [address] Hematocrit (Bld) [Volume fraction] 30.0 % Low 41.0-52.0 [facility] Comment on above: Performed By: #### 5 7021-8 ####FLORINDA TARANGO L ([id number])[facility] ([facility])[address] [place] [address] Hemoglobin (Bld) [Mass/Vol] 9.4 g/dL Low 13.5-17.5 [facility] Comment on above: Performed By: #### 5 7021-8 ####FLORINDA TARANGO L ([id number])[facility] ([facility])[address] [place] [address] Immature granulocytes (Bld) [#/Vol] 0.04 x10*3/uL Normal 0.00-0.70 [facility] Comment on above: Performed By: #### 5 7021-8 ####FLORINDA Monroe ([id number])[facility] ([facility])[address] [place] [address] Immature granulocytes/100 WBC (Bld) 0.9 % Normal 0.0-0.9 [facility] Comment on above: Result Comment: Nathaly ture Granulocyte Count (IG) includes promyelocytes, myelocytes and metamyelocytes but does not include bands. Percent differential counts (%) should be interpreted in the context of the absolute cell counts (cells/UL). Performed By: #### 5 7021-8 ####FLORINDA TARANGO L ([id number])[facility] ([facility])[id number] [place] [address] Lymphocytes (Bld) [#/Vol] 0.72 x10*3/uL Low 1.20-4.80 [facility] Comment on above: Performed By: #### 5 7021-8 ####FLORINDA TARANGO L ([id number])[facility] ([facility])[address] [place] [address] Lymphocytes/100 WBC (Bld) 15.7 % Normal 13.0-44.0 [facility] Comment on above: Performed By: #### 5 7021-8 ####FLORINDA Monroe ([id number])[facility] ([facility])[address] [place] [address] MCH (RBC) [Entitic mass] 28.4 pg Normal 26.0-34.0 [facility] Comment on above: Performed By: #### 5 7021-8 ####FLORINDA Monroe ([id number])[facility] ([facility])[address] [place] [address] MCHC (RBC) [Mass/Vol] 31.3 g/dL Low 32.0-36.0 [facility] Comment on above: Performed By: #### 5 7021-8 ####FLORINDA Monroe ([id number])[facility] ([facility])[address] [place] [address] MCV (RBC) [Entitic vol] 91 fL Normal 80-100 [facility] Comment on above: Performed By: #### 5 7021-8 ####FLORINDA Monroe ([id number])[facility] ([facility])[address] [place] [address] Monocytes (Bld) [#/Vol] 0.66 x10*3/uL Normal 0.10-1.00 [facility] Comment on above: Performed By: #### 5 7021-8 ####FLORINDA Monroe ([id number])[facility] ([facility])[address] [place] [address] Monocytes/100 WBC (Bld) 14.4 % Normal 2.0-10.0 [facility] Comment on above: Performed By: #### 5 7021-8 ####FLORINDA Monroe ([id number])[facility] ([facility])[address] [place] [address] Neutrophils (Bld) [#/Vol] 3.09 x10*3/uL Normal 1.20-7.70 [facility] Comment on above: Result Comment: Perc ent differential counts (%) should be interpreted in the context of the absolute cell counts (cells/uL). Performed By: #### 5 7021-8 ####FLORINDA Monroe ([id number])[facility] ([facility])[address] [place] [address] Neutrophils/100 WBC (Bld) 67.5 % Normal 40.0-80.0 [facility] Comment on above: Performed By: #### 5 7021-8 ####FLORINDA Monroe ([id number])[facility] ([facility])[address] [place] [address] Nucleated RBC/100 WBC (Bld) [Ratio] 0.0 /100 WBCs Normal 0.0-0.0 [facility] Comment on above: Performed By: #### 5 7021-8 ####FLORINDA Monroe ([id number])[facility] ([facility])[address] [place] [address] Platelets (Bld) [#/Vol] 145 x10*3/uL Low 150-450 [facility] Comment on above: Performed By: #### 5 7021-8 ####FLORINDA Monroe ([id number])[facility] ([facility])[address] [place] [address] RBC (Bld) [#/Vol] 3.31 x10*6/uL Low 4.50-5.90 [facility] Comment on above: Performed By: #### 5 7021-8 ####FLORINDA TARANGO L ([id number])[facility] ([facility])[address] [place] [address] WBC (Bld) [#/Vol] 4.6 x10*3/uL Normal 4.4-11.3 [facility] Comment on above: Performed By: #### 5 7021-8 ####FLORINDA Monroe ([id number])[facility] ([facility])[address] [place] [address] Magnesiumon 05-31-2024 Magnesium [Mass/Vol] 2.03 mg/dL Normal 1.60-2.40 [facility] Comment on above: Performed By: #### 1 9123-9 ####FLORINDA Monroe ([id number])[facility] ([facility])[address] [place] [address] Renal function 2000 panelon 05-31-2024 Albumin BCP dye [Mass/Vol] 2.6 g/dL Low 3.4-5.0 [facility] Comment on above: Performed By: #### 2 4362-6 ####FLORINDA Monroe ([id number])[facility] ([facility])[address] [place] [address] Anion gap [Moles/Vol] 11 mmol/L Normal 10-20 [facility] Comment on above: Performed By: #### 2 4362-6 ####FLORINDA Monroe ([id number])[facility] ([facility])[address] [place] [address] Calcium [Mass/Vol] 9.3 mg/dL Normal 8.6-10.6 [facility] Comment on above: Performed By: #### 2 4362-6 ####FLORINDA Monroe ([id number])[facility] ([facility])[address] [place] [address] Chloride [Moles/Vol] 104 mmol/L Normal 98-107 [facility] Comment on above: Performed By: #### 2 4362-6 ####FLORINDA Monroe ([id number])[facility] ([facility])[address] [place] [address] CO2 [Moles/Vol] 26 mmol/L Normal 21-32 [facility] Comment on above: Performed By: #### 2 4362-6 ####FLORINDA Monroe ([id number])[facility] ([facility])[address] [place] [address] Creatinine [Mass/Vol] 3.07 mg/dL High 0.50-1.30 [facility] Comment on above: Performed By: #### 2 4362-6 ####FLORINDA Monroe ([id number])[facility] ([facility])[address] [place] [address] Glomerular filtration rate/1.73 sq M.predicted 23 mL/min/1.73m*2 Low >60 [facility] Comment on above: Result Comment: Calc ulations of estimated GFR are performed using the 2020 CKD-EPI Study Refit equation without the race variable for the IDMS-Traceable creatinine methods.https://jasn.asnjournals.org/content/early/ASN. 7556672992 Performed By: #### 2 4362-6 ####FLORINDA Monroe ([id number])[facility] ([facility])[address] [place] [address] Glucose [Mass/Vol] 97 mg/dL Normal 74-99 [facility] Comment on above: Performed By: #### 2 4362-6 ####FLORINDA Monroe ([id number])[facility] ([facility])[address] [place] [address] Phosphate [Mass/Vol] 4.1 mg/dL Normal 2.5-4.9 [facility] Comment on above: Result Comment: The performance characteristics of phosphorus testing in heparinized plasma have been validated by the individual laboratory site where testing is performed. Testing on heparinized plasma is not approved by the FDA; however, such approval is not necessary. Performed By: #### 2 4362-6 ####FLORINDA Monroe ([id number])[facility] ([facility])[address] [place] [address] Potassium [Moles/Vol] 4.4 mmol/L Normal 3.5-5.3 [facility] Comment on above: Performed By: #### 2 4362-6 ####FLORINDA Monroe ([id number])[facility] ([facility])[address] [place] [address] Sodium [Moles/Vol] 137 mmol/L Normal 136-145 [facility] Comment on above: Performed By: #### 2 4362-6 ####FLORINDA Monroe ([id number])[facility] ([facility])[address] [place] [address] Urea nitrogen [Mass/Vol] 53 mg/dL High 6-23 [facility] Comment on above: Performed By: #### 2 4362-6 ####FLORINDA Monroe ([id number])[facility] ([facility])[address] [place] [address] CBC W Auto Differential pane l (Bld)on 05-30-2024 Basophils (Bld) [#/Vol] 0.01 x10*3/uL Normal 0.00-0.10 [facility] Comment on above: Performed By: #### 5 7021-8 ####FLORINDA Monroe ([id number])[facility] ([facility])[address] [place] [address] Basophils/100 WBC (Bld) 0.2 % Normal 0.0-2.0 [facility] Comment on above: Performed By: #### 5 7021-8 ####FLORINDA Monroe ([id number])[facility] ([facility])[id number] [place] [address] Eosinophils (Bld) [#/Vol] 0.10 x10*3/uL Normal 0.00-0.70 [facility] Comment on above: Performed By: #### 5 7021-8 ####FLORINDA Monroe ([id number])[facility] ([facility])[address] [place] [address] Eosinophils/100 WBC (Bld) 2.1 % Normal 0.0-6.0 [facility] Comment on above: Performed By: #### 5 7021-8 ####FLORINDA Monroe ([id number])[facility] ([facility])[address] [place] [address] Erythrocyte distribution width (RBC) [Ratio] 15.1 % High 11.5-14.5 [facility] Comment on above: Performed By: #### 5 7021-8 ####FLORINDA Monroe ([id number])[facility] ([facility])[address] [place] [address] Hematocrit (Bld) [Volume fraction] 32.2 % Low 41.0-52.0 [facility] Comment on above: Performed By: #### 5 7021-8 ####FLORINDA Monroe ([id number])[facility] ([facility])[address] [place] [address] Hemoglobin (Bld) [Mass/Vol] 9.9 g/dL Low 13.5-17.5 [facility] Comment on above: Performed By: #### 5 7021-8 ####FLORINDA Monroe ([id number])[facility] ([facility])[address] [place] [address] Immature granulocytes (Bld) [#/Vol] 0.04 x10*3/uL Normal 0.00-0.70 [facility] Comment on above: Performed By: #### 5 7021-8 ####FLORINDA Monroe ([id number])[facility] ([facility])[address] [place] [address] Immature granulocytes/100 WBC (Bld) 0.8 % Normal 0.0-0.9 [facility] Comment on above: Result Comment: Nathaly ture Granulocyte Count (IG) includes promyelocytes, myelocytes and metamyelocytes but does not include bands. Percent differential counts (%) should be interpreted in the context of the absolute cell counts (cells/UL). Performed By: #### 5 7021-8 ####FLORINDA Monroe ([id number])[facility] ([facility])[address] [place] [address] Lymphocytes (Bld) [#/Vol] 0.68 x10*3/uL Low 1.20-4.80 [facility] Comment on above: Performed By: #### 5 7021-8 ####FLORINDA Monroe ([id number])[facility] ([facility])[address] [place] [address] Lymphocytes/100 WBC (Bld) 14.4 % Normal 13.0-44.0 [facility] Comment on above: Performed By: #### 5 7021-8 ####FLORINDA Monroe ([id number])[facility] ([facility])[address] [place] [address] MCH (RBC) [Entitic mass] 28.5 pg Normal 26.0-34.0 [facility] Comment on above: Performed By: #### 5 7021-8 ####FLORINDA Monroe ([id number])[facility] ([facility])[address] [place] [address] MCHC (RBC) [Mass/Vol] 30.7 g/dL Low 32.0-36.0 [facility] Comment on above: Performed By: #### 5 7021-8 ####FLORINDA Monroe ([id number])[facility] ([facility])[address] [place] [address] MCV (RBC) [Entitic vol] 93 fL Normal 80-100 [facility] Comment on above: Performed By: #### 5 7021-8 ####FLORINDA Monroe ([id number])[facility] ([facility])[address] [place] [address] Monocytes (Bld) [#/Vol] 0.68 x10*3/uL Normal 0.10-1.00 [facility] Comment on above: Performed By: #### 5 7021-8 ####FLORINDA Monroe ([id number])[facility] ([facility])[address] [place] [address] Monocytes/100 WBC (Bld) 14.4 % Normal 2.0-10.0 [facility] Comment on above: Performed By: #### 5 7021-8 ####FLORINDA Monroe ([id number])[facility] ([facility])[address] [place] [address] Neutrophils (Bld) [#/Vol] 3.22 x10*3/uL Normal 1.20-7.70 [facility] Comment on above: Result Comment: Perc ent differential counts (%) should be interpreted in the context of the absolute cell counts (cells/uL). Performed By: #### 5 7021-8 ####FLORINDA Monroe ([id number])[facility] ([facility])[address] [place] [address] Neutrophils/100 WBC (Bld) 68.1 % Normal 40.0-80.0 [facility] Comment on above: Performed By: #### 5 7021-8 ####FLORINDA Monroe ([id number])[facility] ([facility])[address] [place] [address] Nucleated RBC/100 WBC (Bld) [Ratio] 0.0 /100 WBCs Normal 0.0-0.0 [facility] Comment on above: Performed By: #### 5 7021-8 ####FLORINDA Monroe ([id number])[facility] ([facility])[address] [place] [address] Platelets (Bld) [#/Vol] 151 x10*3/uL Normal 150-450 [facility] Comment on above: Performed By: #### 5 7021-8 ####FLORINDA Monroe ([id number])[facility] ([facility])[address] [place] [address] RBC (Bld) [#/Vol] 3.47 x10*6/uL Low 4.50-5.90 [facility] Comment on above: Performed By: #### 5 7021-8 ####FLORINDA TARANGO L ([id number])[facility] ([facility])[address] [place] [address] WBC (Bld) [#/Vol] 4.7 x10*3/uL Normal 4.4-11.3 [facility] Comment on above: Performed By: #### 5 7021-8 ####FLORINDA Monroe ([id number])[facility] ([facility])[address] [place] [address] CBC panel Auto (Bld)on 05-30 Erythrocyte distribution width (RBC) [Ratio] 15.3 % High 11.5-14.5 [facility] Comment on above: Performed By: #### 5 8410-2 ####FLORINDA Monroe ([id number])[facility] ([facility])[address] [place] [address] Hematocrit (Bld) [Volume fraction] 33.8 % Low 41.0-52.0 [facility] Comment on above: Performed By: #### 5 8410-2 ####FLORINDA Monroe ([id number])[facility] ([facility])[address] [place] [address] Hemoglobin (Bld) [Mass/Vol] 10.4 g/dL Low 13.5-17.5 [facility] Comment on above: Performed By: #### 5 8410-2 ####FLORINDA Monroe ([id number])[facility] ([facility])[address] [place] [address] MCH (RBC) [Entitic mass] 28.5 pg Normal 26.0-34.0 [facility] Comment on above: Performed By: #### 5 8410-2 ####FLORINDA Monroe ([id number])[facility] ([facility])[address] [place] [address] MCHC (RBC) [Mass/Vol] 30.8 g/dL Low 32.0-36.0 [facility] Comment on above: Performed By: #### 5 8410-2 ####FLORINDA Monroe ([id number])[facility] ([facility])[address] [place] [address] MCV (RBC) [Entitic vol] 93 fL Normal 80-100 [facility] Comment on above: Performed By: #### 5 8410-2 ####FLORINDA Monroe ([id number])[facility] ([facility])[address] [place] [address] Nucleated RBC/100 WBC (Bld) [Ratio] 0.0 /100 WBCs Normal 0.0-0.0 [facility] Comment on above: Performed By: #### 5 8410-2 ####FLORINDA Monroe ([id number])[facility] ([facility])[address] [place] [address] Platelets (Bld) [#/Vol] 143 x10*3/uL Low 150-450 [facility] Comment on above: Performed By: #### 5 8410-2 ####FLORINDA Monroe ([id number])[facility] ([facility])[address] [place] [address] RBC (Bld) [#/Vol] 3.65 x10*6/uL Low 4.50-5.90 [facility] Comment on above: Performed By: #### 5 8410-2 ####FLORINDA Monroe ([id number])[facility] ([facility])[address] [place] [address] WBC (Bld) [#/Vol] 4.7 x10*3/uL Normal 4.4-11.3 [facility] Comment on above: Performed By: #### 5 8410-2 ####FLORINDA Monroe ([id number])[facility] ([facility])[address] [place] [address] Heparin.unfractionatedon Heparin unfractionated Chromogenic method Qn (PPP) 0.5 IU/mL Normal See Comment Below for Therapeutic Ranges [facility] Comment on above: Order Comment: When two (2) consecutive Heparin Assay, UFH results obtained 4 hours apart are therapeutic, obtain STAT Heparin Assay, UFH every a.m. Nursing to release order.The therapeutic reference range for UFH may be either 0.3-0.6 IU/mL or 0.3-0.7 IU/mL based on the clinical setting for anticoagulant therapy and the associated nomogram used. For Heparin dosing guidelines based on clinical scenario and Heparin Assay results, please refer to local Pharmacy and the [facility] Guidelines for Anticoagulation Therapy available on the [facility] intranet at: [email or web address] Performed By: #### 3 274-8 ####FLORINDA Monroe ([id number])[facility] ([facility])[address] [place] [id number] Heparin unfractionated Chromogenic method Qn (PPP) 0.3 IU/mL Normal See Comment Below for Therapeutic Ranges [facility] Comment on above: Order Comment: Obtai n 4 hours after any Heparin dosage change. Nursing to release order.The therapeutic reference range for UFH may be either 0.3-0.6 IU/mL or 0.3-0.7 IU/mL based on the clinical setting for anticoagulant therapy and the associated nomogram used. For Heparin dosing guidelines based on clinical scenario and Heparin Assay results, please refer to local Pharmacy and the [facility] Guidelines for Anticoagulation Therapy available on the [facility] intranet at: [email or web address] [email or web address] Performed By: #### 3 274-8 ####FLORINDA Monroe ([id number])[facility] ([facility])[address] [place] [address] 90502 Magnesiumon 05-30-2024 Magnesium [Mass/Vol] 2.06 mg/dL Normal 1.60-2.40 [facility] Comment on above: Performed By: #### 1 9123-9 ####FLORINDA Monroe ([id number])[facility] ([facility])[address] [place] [address] 35312 Renal function 2000 panelon 05-30-2024 Albumin BCP dye [Mass/Vol] 2.5 g/dL Low 3.4-5.0 [facility] Comment on above: Performed By: #### 2 4362-6 ####FLORINDA Monroe ([id number])[facility] ([facility])[address] [place] [address] 31699 Anion gap [Moles/Vol] 10 mmol/L Normal 10-20 [facility] Comment on above: Performed By: #### 2 4362-6 ####FLORINDA Monroe ([id number])[facility] ([facility])[address] [place] [address] Calcium [Mass/Vol] 8.9 mg/dL Normal 8.6-10.6 [facility] Comment on above: Performed By: #### 2 4362-6 ####FLORINDA Monroe ([id number])[facility] ([facility])[address] [place] [address] Chloride [Moles/Vol] 105 mmol/L Normal 98-107 [facility] Comment on above: Performed By: #### 2 4362-6 ####FLORINDA TARANGO L ([id number])[facility] ([facility])[address] [place] [address] CO2 [Moles/Vol] 26 mmol/L Normal 21-32 [facility] Comment on above: Performed By: #### 2 4362-6 ####FLORINDA Monroe ([id number])[facility] ([facility])[address] [place] [address] Creatinine [Mass/Vol] 2.63 mg/dL High 0.50-1.30 [facility] Comment on above: Performed By: #### 2 4362-6 ####FLORINDA TARANGO L ([id number])[facility] ([facility])[address] [place] [address] Glomerular filtration rate/1.73 sq M.predicted 28 mL/min/1.73m*2 Low >60 [facility] Comment on above: Result Comment: Calc ulations of estimated GFR are performed using the 2020 CKD-EPI Study Refit equation without the race variable for the IDMS-Traceable creatinine methods.https://jasn.asnjournals.org/content//ASN. 0665194463 Performed By: #### 2 4362-6 ####FLORINDA Monroe ([id number])[facility] ([facility])[address] [place] [address] Glucose [Mass/Vol] 109 mg/dL High 74-99 [facility] Comment on above: Performed By: #### 2 4362-6 ####FLORINDA Monroe ([id number])[facility] ([facility])[address] [place] [address]26 Phosphate [Mass/Vol] 4.5 mg/dL Normal 2.5-4.9 [facility] Comment on above: Result Comment: The performance characteristics of phosphorus testing in heparinized plasma have been validated by the individual laboratory site where testing is performed. Testing on heparinized plasma is not approved by the FDA; however, such approval is not necessary. Performed By: #### 2 4362-6 ####FLORINDA Monroe ([id number])[facility] ([facility])[address] [place] [address] 42630 Potassium [Moles/Vol] 4.2 mmol/L Normal 3.5-5.3 [facility] Comment on above: Performed By: #### 2 4362-6 ####FLORINDA Monroe ([id number])[facility] ([facility])[address] [place] [address] 51492 Sodium [Moles/Vol] 137 mmol/L Normal 136-145 [facility] Comment on above: Performed By: #### 2 4362-6 ####FLORINDA Monroe ([id number])[facility] ([facility])[address] [place] [address] 75842 Urea nitrogen [Mass/Vol] 50 mg/dL High 6-23 [facility] Comment on above: Performed By: #### 2 4362-6 ####FLORINDA Monroe ([id number])[facility] ([facility])[address] [place] [address] 65577 Tacrolimuson 05-30-2024 Tacrolimus (Bld) [Mass/Vol] 4.5 ng/mL Normal <=15.0 [facility] Comment on above: Order Comment: NOTE: Result was obtained using achemiluminescent microparticle immunoassay(CMIA) on the Systems [employer] Developer i system.Optimal therapeutic ranges for immunosuppressantdrugs depend upon an individualpatient's current clinical state, type oforgan transplant, time post-transplant,co-administration of other immunosuppressants,and other clinical factors. The results ofthis test should be correlated with additionalclinical and laboratory data before changesin treatment regimens are made. Performed By: #### 1 1253-2 ####FLORINDA Monroe ([id number])[facility] ([facility])[address] [facility] [place] [address] Activated clotting timeon ACT Coag (Bld) 178 s Normal [address] [place] [address] Comment on above: Result Comment: Targ et ACT range will vary based on the patient population, clinical status, and surgical intervention occurring. Performed By: #### 3 184-9 ####FLORINDA Monroe ([id number])[facility] ([facility])[address] [place] [address] ACT Coag (Bld) 187 s Normal [address] [place] [address] Comment on above: Result Comment: Targ et ACT range will vary based on the patient population, clinical status, and surgical intervention occurring. Performed By: #### 3 184-9 ####FLORINDA WESTONTZEMA L ([id number])[facility] ([facility])[address] [place] [address] ACT Coag (Bld) 179 s Normal [address] [place] [address] Comment on above: Result Comment: Targ et ACT range will vary based on the patient population, clinical status, and surgical intervention occurring. Performed By: #### 3 184-9 ####FLORINDA WESTONTZEMA L ([id number])[facility] ([facility])[address] [place] [address] ACT Coag (Bld) 308 s High [address] [place] [address] Comment on above: Result Comment: Targ et ACT range will vary based on the patient population, clinical status, and surgical intervention occurring. Performed By: #### 3 184-9 ####FLORINDA HYDEMOTZEMA L ([id number])[facility] ([facility])[address] [place] [address] ACT Coag (Bld) [facility] Comment on above: Result Comment: ABOV E LIMIT FOR DEVICE Target ACT range will vary based on the patient population, clinical status, and surgical intervention occurring. Performed By: #### 3 184-9 ####FLORINDA Monroe ([id number])[facility] ([facility])[address] [place] [address] CBC W Auto Differential pane l (Bld)on 05-29-2024 Basophils (Bld) [#/Vol] 0.02 x10*3/uL Normal 0.00-0.10 [facility] Comment on above: Performed By: #### 5 7021-8 ####FLORINDA Monroe ([id number])[facility] ([facility])[address] [place] [address] Basophils/100 WBC (Bld) 0.3 % Normal 0.0-2.0 [facility] Comment on above: Performed By: #### 5 7021-8 ####FLORINDA Monroe ([id number])[facility] ([facility])[address] [place] [address] Eosinophils (Bld) [#/Vol] 0.14 x10*3/uL Normal 0.00-0.70 [facility] Comment on above: Performed By: #### 5 7021-8 ####FLORINDA Monroe ([id number])[facility] ([facility])[address] [place] [address] Eosinophils/100 WBC (Bld) 1.8 % Normal 0.0-6.0 [facility] Comment on above: Performed By: #### 5 7021-8 ####FLORINDA Monroe ([id number])[facility] ([facility])[address] [place] [address] Erythrocyte distribution width (RBC) [Ratio] 14.9 % High 11.5-14.5 [facility] Comment on above: Performed By: #### 5 7021-8 ####FLORINDA Monroe ([id number])[facility] ([facility])[address] [place] [address] Hematocrit (Bld) [Volume fraction] 32.3 % Low 41.0-52.0 [facility] Comment on above: Performed By: #### 5 7021-8 ####FLORINDA WESTONTZER L ([id number])[facility] ([facility])[address] [place] [address] Hemoglobin (Bld) [Mass/Vol] 10.6 g/dL Low 13.5-17.5 [facility] Comment on above: Performed By: #### 5 7021-8 ####FLORINDA HYDEMOTZER L ([id number])[facility] ([facility])[address] [place] [address] Immature granulocytes (Bld) [#/Vol] 0.09 x10*3/uL Normal 0.00-0.70 [facility] Comment on above: Performed By: #### 5 7021-8 ####FLORINDA WESTONTZER L ([id number])[facility] ([facility])[address] [place] [address] Immature granulocytes/100 WBC (Bld) 1.2 % High 0.0-0.9 [facility] Comment on above: Result Comment: Nathaly ture Granulocyte Count (IG) includes promyelocytes, myelocytes and metamyelocytes but does not include bands. Percent differential counts (%) should be interpreted in the context of the absolute cell counts (cells/UL). Performed By: #### 5 7021-8 ####FLORINDA TARANGO L ([id number])[facility] ([facility])[address] [place] [address] Lymphocytes (Bld) [#/Vol] 0.77 x10*3/uL Low 1.20-4.80 [facility] Comment on above: Performed By: #### 5 7021-8 ####FLORINDA WESTONTZER L ([id number])[facility] ([facility])[address] [place] [address] Lymphocytes/100 WBC (Bld) 9.9 % Normal 13.0-44.0 [facility] Comment on above: Performed By: #### 5 7021-8 ####FLORINDA HYDEMOTZER L ([id number])[facility] ([facility])[address] [place] [address] MCH (RBC) [Entitic mass] 28.4 pg Normal 26.0-34.0 [facility] Comment on above: Performed By: #### 5 7021-8 ####FLORINDA Monroe ([id number])[facility] ([facility])[address] [place] [address] MCHC (RBC) [Mass/Vol] 32.8 g/dL Normal 32.0-36.0 [facility] Comment on above: Performed By: #### 5 7021-8 ####FLORINDA Monroe ([id number])[facility] ([facility])[address] [place] [address] MCV (RBC) [Entitic vol] 87 fL Normal 80-100 [facility] Comment on above: Performed By: #### 5 7021-8 ####FLORINDA Monroe ([id number])[facility] ([facility])[address] [place] [address] Monocytes (Bld) [#/Vol] 0.86 x10*3/uL Normal 0.10-1.00 [facility] Comment on above: Performed By: #### 5 7021-8 ####FLORINDA Monroe ([id number])[facility] ([facility])[address] [place] [address] Monocytes/100 WBC (Bld) 11.1 % Normal 2.0-10.0 [facility] Comment on above: Performed By: #### 5 7021-8 ####FLORINDA Monroe ([id number])[facility] ([facility])[address] [place] [address] Neutrophils (Bld) [#/Vol] 5.88 x10*3/uL Normal 1.20-7.70 [facility] Comment on above: Result Comment: Perc ent differential counts (%) should be interpreted in the context of the absolute cell counts (cells/uL). Performed By: #### 5 7021-8 ####FLORINDA Monroe ([id number])[facility] ([facility])[address] [place] [address] Neutrophils/100 WBC (Bld) 75.7 % Normal 40.0-80.0 [facility] Comment on above: Performed By: #### 5 7021-8 ####FLORINDA Monroe ([id number])[facility] ([facility])[address] [place] [address] 59036 Nucleated RBC/100 WBC (Bld) [Ratio] 0.0 /100 WBCs Normal 0.0-0.0 [facility] Comment on above: Performed By: #### 5 7021-8 ####FLORINDA Monroe ([id number])[facility] ([facility])[address] [place] [address] Platelets (Bld) [#/Vol] 147 x10*3/uL Low 150-450 [facility] Comment on above: Performed By: #### 5 7021-8 ####FLORINDA Monroe ([id number])[facility] ([facility])[address] [place] [address] 51926 RBC (Bld) [#/Vol] 3.73 x10*6/uL Low 4.50-5.90 [facility] Comment on above: Performed By: #### 5 7021-8 ####FLORINDA Monroe ([id number])[facility] ([facility])[address] [place] [address] 60016 WBC (Bld) [#/Vol] 7.8 x10*3/uL Normal 4.4-11.3 [facility] Comment on above: Performed By: #### 5 7021-8 ####FLORINDA Monroe ([id number])[facility] ([facility])[address] [place] [address]38[address] Heparin.unfractionatedon Heparin unfractionated Chromogenic method Qn (PPP) 0.5 IU/mL Normal See Comment Below for Therapeutic Ranges [facility] Comment on above: Order Comment: Obtai n 4 hours after any Heparin dosage change. Nursing to release order.The therapeutic reference range for UFH may be either 0.3-0.6 IU/mL or 0.3-0.7 IU/mL based on the clinical setting for anticoagulant therapy and the associated nomogram used. For Heparin dosing guidelines based on clinical scenario and Heparin Assay results, please refer to local Pharmacy and the [facility] Guidelines for Anticoagulation Therapy available on the [facility] intranet at: [email or web address] Performed By: #### 3 274-8 ####FLORINDA Monroe ([id number])[facility] ([facility])[address] [place] [address]90[address] Magnesiumon 05-29-2024 Magnesium [Mass/Vol] 2.06 mg/dL Normal 1.60-2.40 [facility] Comment on above: Performed By: #### 1 9123-9 ####FLORINDA Monroe ([id number])[facility] ([facility])[address] [place] [address]7771 PROCEDURE ABORTED - CATHon 0 05-29-2024 PROCEDURE ABORTED - CATH Normal [facility] Renal function 2000 panelon 05-29-2024 Albumin BCP dye [Mass/Vol] 2.5 g/dL Low 3.4-5.0 [facility] Comment on above: Performed By: #### 2 4362-6 ####FLORINDA Monroe ([id number])[facility] ([facility])[address] [place] [address] 48401 Anion gap [Moles/Vol] 13 mmol/L Normal 10-20 [facility] Comment on above: Performed By: #### 2 4362-6 ####FLORINDA Monroe ([id number])[facility] ([facility])[address] [place] [address] 42149 Calcium [Mass/Vol] 8.9 mg/dL Normal 8.6-10.6 [facility] Comment on above: Performed By: #### 2 4362-6 ####FLORINDA Monroe ([id number])[facility] ([facility])[address] [place] [address] Chloride [Moles/Vol] 108 mmol/L High 98-107 [facility] Comment on above: Performed By: #### 2 4362-6 ####FLORINDA Monroe ([id number])[facility] ([facility])[address] [place] [address] CO2 [Moles/Vol] 25 mmol/L Normal 21-32 [facility] Comment on above: Performed By: #### 2 4362-6 ####FLORINDA Monroe ([id number])[facility] ([facility])[address] [place] [address] Creatinine [Mass/Vol] 2.09 mg/dL High 0.50-1.30 [facility] Comment on above: Performed By: #### 2 4362-6 ####FLORINDA Monroe ([id number])[facility] ([facility])[address] [place] [address] Glomerular filtration rate/1.73 sq M.predicted 37 mL/min/1.73m*2 Low >60 [facility] Comment on above: Result Comment: Calc ulations of estimated GFR are performed using the 2020 CKD-EPI Study Refit equation without the race variable for the IDMS-Traceable creatinine methods.https://jasn.asnjournals.org/content/early/ASN. 9410212231 Performed By: #### 2 4362-6 ####FLORINDA Monroe ([id number])[facility] ([facility])[address] [place] [address] Glucose [Mass/Vol] 92 mg/dL Normal 74-99 [facility] Comment on above: Performed By: #### 2 4362-6 ####FLORINDA Monroe ([id number])[facility] ([facility])[address] [place] [address] Phosphate [Mass/Vol] 3.5 mg/dL Normal 2.5-4.9 [facility] Comment on above: Result Comment: The performance characteristics of phosphorus testing in heparinized plasma have been validated by the individual laboratory site where testing is performed. Testing on heparinized plasma is not approved by the FDA; however, such approval is not necessary. Performed By: #### 2 4362-6 ####FLORINDA Monroe ([id number])[facility] ([facility])[address] [place] [address] Potassium [Moles/Vol] 4.1 mmol/L Normal 3.5-5.3 [facility] Comment on above: Performed By: #### 2 4362-6 ####FLORINDA Monroe ([id number])[facility] ([facility])[address] [place] [address] Sodium [Moles/Vol] 142 mmol/L Normal 136-145 [facility] Comment on above: Performed By: #### 2 4362-6 ####FLORINDA Monroe ([id number])[facility] ([facility])[address] [place] [address] Urea nitrogen [Mass/Vol] 43 mg/dL High 6-23 [facility] Comment on above: Performed By: #### 2 4362-6 ####FLORINDA Monroe ([id number])[facility] ([facility])[address] [place] [address] Tacrolimuson 05-29-2024 Tacrolimus (Bld) [Mass/Vol] 4.5 ng/mL Normal <=15.0 [facility] Comment on above: Order Comment: NOTE: Result was obtained using achemiluminescent microparticle immunoassay(CMIA) on the Systems [employer] Developer i system.Optimal therapeutic ranges for immunosuppressantdrugs depend upon an individualpatient's current clinical state, type oforgan transplant, time post-transplant,co-administration of other immunosuppressants,and other clinical factors. The results ofthis test should be correlated with additionalclinical and laboratory data before changesin treatment regimens are made. Performed By: #### 1 1253-2 ####FLORINDA Monroe ([id number])[facility] ([facility])[address] [place] [address] XR CHEST 1 VIEWon 05-29-2024 XR CHEST 1 VIEW Normal [facility] CBC W Auto Differential pane l (Bld)on 05-28-2024 Basophils (Bld) [#/Vol] 0.01 x10*3/uL Normal 0.00-0.10 [facility] Comment on above: Performed By: #### 5 7021-8 ####FLORINDA Monroe ([id number])[facility] ([facility])[address] [place] [address] Basophils/100 WBC (Bld) 0.1 % Normal 0.0-2.0 [facility] Comment on above: Performed By: #### 5 7021-8 ####FLORINDA Monroe ([id number])[facility] ([facility])[address] [place] [address] Eosinophils (Bld) [#/Vol] 0.15 x10*3/uL Normal 0.00-0.70 [facility] Comment on above: Performed By: #### 5 7021-8 ####FLORINDA Monroe ([id number])[facility] ([facility])[address] [place] [address] Eosinophils/100 WBC (Bld) 1.9 % Normal 0.0-6.0 [facility] Comment on above: Performed By: #### 5 7021-8 ####FLORINDA Monroe ([id number])[facility] ([facility])[address] [place] [address] Erythrocyte distribution width (RBC) [Ratio] 14.8 % High 11.5-14.5 [facility] Comment on above: Performed By: #### 5 7021-8 ####FLORINDA Monroe ([id number])[facility] ([facility])[address] [place] [address] Hematocrit (Bld) [Volume fraction] 30.8 % Low 41.0-52.0 [facility] Comment on above: Performed By: #### 5 7021-8 ####FLORINDA Monroe ([id number])[facility] ([facility])[address] [place] [address] [place] [address] Hemoglobin (Bld) [Mass/Vol] 10.3 g/dL Low 13.5-17.5 [facility] Comment on above: Performed By: #### 5 7021-8 ####FLORINDA Monroe ([id number])[facility] ([facility])[address] [place] [address] Immature granulocytes (Bld) [#/Vol] 0.11 x10*3/uL Normal 0.00-0.70 [facility] Comment on above: Performed By: #### 5 7021-8 ####FLORINDA Monroe ([id number])[facility] ([facility])[address] [place] [address] Immature granulocytes/100 WBC (Bld) 1.4 % High 0.0-0.9 [facility] Comment on above: Result Comment: Nathaly ture Granulocyte Count (IG) includes promyelocytes, myelocytes and metamyelocytes but does not include bands. Percent differential counts (%) should be interpreted in the context of the absolute cell counts (cells/UL). Performed By: #### 5 7021-8 ####FLORINDA Monroe ([id number])[facility] ([facility])[address] [place] [address] Lymphocytes (Bld) [#/Vol] 0.60 x10*3/uL Low 1.20-4.80 [facility] Comment on above: Performed By: #### 5 7021-8 ####FLORINDA Monroe ([id number])[facility] ([facility])[address] [place] [address] Lymphocytes/100 WBC (Bld) 7.7 % Normal 13.0-44.0 [facility] Comment on above: Performed By: #### 5 7021-8 ####FLORINDA Monroe ([id number])[facility] ([facility])[address] [place] [address] MCH (RBC) [Entitic mass] 28.5 pg Normal 26.0-34.0 [facility] Comment on above: Performed By: #### 5 7021-8 ####FLORINDA Monroe ([id number])[facility] ([facility])[address] [place] [address] MCHC (RBC) [Mass/Vol] 33.4 g/dL Normal 32.0-36.0 [facility] Comment on above: Performed By: #### 5 7021-8 ####FLORINDA HYDEMOPRIETO L ([id number])[facility] ([facility])[address] [place] [address] MCV (RBC) [Entitic vol] 85 fL Normal 80-100 [facility] Comment on above: Performed By: #### 5 7021-8 ####FLORINDA TARANGO L ([id number])[facility] ([facility])[address] [place] [address] Monocytes (Bld) [#/Vol] 0.69 x10*3/uL Normal 0.10-1.00 [facility] Comment on above: Performed By: #### 5 7021-8 ####FLORINDA TARANGO L ([id number])[facility] ([facility])[address] [place] [address] Monocytes/100 WBC (Bld) 8.9 % Normal 2.0-10.0 [facility] Comment on above: Performed By: #### 5 7021-8 ####FLORINDA HYDEMOPRIETO L ([id number])[facility] ([facility])[address] [place] [address] Neutrophils (Bld) [#/Vol] 6.19 x10*3/uL Normal 1.20-7.70 [facility] Comment on above: Result Comment: Perc ent differential counts (%) should be interpreted in the context of the absolute cell counts (cells/uL). Performed By: #### 5 7021-8 ####FLORINDA HYDEMOTZEMA L ([id number])[facility] ([facility])[address] [place] [address] Neutrophils/100 WBC (Bld) 80.0 % Normal 40.0-80.0 [facility] Comment on above: Performed By: #### 5 7021-8 ####FLORINDA Monroe ([id number])[facility] ([facility])[address] [place] [address] Nucleated RBC/100 WBC (Bld) [Ratio] 0.0 /100 WBCs Normal 0.0-0.0 [facility] Comment on above: Performed By: #### 5 7021-8 ####FLORINDA Monroe ([id number])[facility] ([facility])[address] [place] [address] Platelets (Bld) [#/Vol] 141 x10*3/uL Low 150-450 [facility] Comment on above: Performed By: #### 5 7021-8 ####FLORINDA Monroe ([id number])[facility] ([facility])[address] [place] [address] RBC (Bld) [#/Vol] 3.61 x10*6/uL Low 4.50-5.90 [facility] Comment on above: Performed By: #### 5 7021-8 ####FLORINDA Monroe ([id number])[facility] ([facility])[address] [place] [address] WBC (Bld) [#/Vol] 7.8 x10*3/uL Normal 4.4-11.3 [facility] Comment on above: Performed By: #### 5 7021-8 ####FLORINDA Monroe ([id number])[facility] ([facility])[address] [place] [address] Heparin.unfractionatedon Heparin unfractionated Chromogenic method Qn (PPP) 0.4 IU/mL Normal See Comment Below for Therapeutic Ranges [facility] Comment on above: Order Comment: Obtai n 4 hours after any Heparin dosage change. Nursing to release order.The therapeutic reference range for UFH may be either 0.3-0.6 IU/mL or 0.3-0.7 IU/mL based on the clinical setting for anticoagulant therapy and the associated nomogram used. For Heparin dosing guidelines based on clinical scenario and Heparin Assay results, please refer to local Pharmacy and the [facility] Guidelines for Anticoagulation Therapy available on the [facility] intranet at: [email or web address]_Guidelines_[email or web address] Performed By: #### 3 274-8 ####FLORINDA Monroe ([id number])[facility] ([facility])[address] [place] [address] Magnesiumon 05-28-2024 Magnesium [Mass/Vol] 2.03 mg/dL Normal 1.60-2.40 [facility] Comment on above: Performed By: #### 1 9123-9 ####FLORINDA Monroe ([id number])[facility] ([facility])[address] [place] [address] Renal function 2000 panelon 05-28-2024 Albumin BCP dye [Mass/Vol] 2.6 g/dL Low 3.4-5.0 [facility] Comment on above: Performed By: #### 2 4362-6 ####FLORINDA Monroe ([id number])[facility] ([facility])[address] [place] [address] Anion gap [Moles/Vol] 13 mmol/L Normal 10-20 [facility] Comment on above: Performed By: #### 2 4362-6 ####FLORINDA Monroe ([id number])[facility] ([facility])[address] [place] [address] Calcium [Mass/Vol] 8.9 mg/dL Normal 8.6-10.6 [facility] Comment on above: Performed By: #### 2 4362-6 ####FLORINDA Monroe ([id number])[facility] ([facility])[address] [place] [address] Chloride [Moles/Vol] 108 mmol/L High 98-107 [facility] Comment on above: Performed By: #### 2 4362-6 ####FLORINDA oMnroe ([id number])[facility] ([facility])[address] [place] [address] CO2 [Moles/Vol] 28 mmol/L Normal 21-32 [facility] Comment on above: Performed By: #### 2 4362-6 ####FLORINDA Monroe ([id number])[facility] ([facility])[address] [place] [address] Creatinine [Mass/Vol] 2.07 mg/dL High 0.50-1.30 [facility] Comment on above: Performed By: #### 2 4362-6 ####FLORINDA Monroe ([id number])[facility] ([facility])[address] [place] [address] Glomerular filtration rate/1.73 sq M.predicted 37 mL/min/1.73m*2 Low >60 [facility] Comment on above: Result Comment: Calc ulations of estimated GFR are performed using the 2020 CKD-EPI Study Refit equation without the race variable for the IDMS-Traceable creatinine methods.https://jasn.asnjournals.org/content/early//ASN. 1708510407 Performed By: #### 2 4362-6 ####FLORINDA Monroe ([id number])[facility] ([facility])[address] [place] [address] Glucose [Mass/Vol] 100 mg/dL High 74-99 [facility] Comment on above: Performed By: #### 2 4362-6 ####FLORINDA Monroe ([id number])[facility] ([facility])[address] [place] [address] Phosphate [Mass/Vol] 3.8 mg/dL Normal 2.5-4.9 [facility] Comment on above: Result Comment: The performance characteristics of phosphorus testing in heparinized plasma have been validated by the individual laboratory site where testing is performed. Testing on heparinized plasma is not approved by the FDA; however, such approval is not necessary. Performed By: #### 2 4362-6 ####FLORINDA Monroe ([id number])[facility] ([facility])[address] [place] [address] Potassium [Moles/Vol] 4.0 mmol/L Normal 3.5-5.3 [facility] Comment on above: Performed By: #### 2 4362-6 ####FLORINDA TARANGO L ([id number])[facility] ([facility])[address] [place] [address] Sodium [Moles/Vol] 145 mmol/L Normal 136-145 [facility] Comment on above: Performed By: #### 2 4362-6 ####FLORINDA TARANGO L ([id number])[facility] ([facility])[address] [place] [address] Urea nitrogen [Mass/Vol] 46 mg/dL High 6-23 [facility] Comment on above: Performed By: #### 2 4362-6 ####FLORINDA TARANGO L ([id number])[facility] ([facility])[address] [place] [address] Tacrolimuson 05-28-2024 Tacrolimus (Bld) [Mass/Vol] 4.9 ng/mL Normal <=15.0 [facility] Comment on above: Order Comment: NOTE: Result was obtained using achemiluminescent microparticle immunoassay(CMIA) on the Systems [employer] Developer i system.Optimal therapeutic ranges for immunosuppressantdrugs depend upon an individualpatient's current clinical state, type oforgan transplant, time post-transplant,co-administration of other immunosuppressants,and other clinical factors. The results ofthis test should be correlated with additionalclinical and laboratory data before changesin treatment regimens are made. Performed By: #### 1 1253-2 ####FLORINDA TARANGO L ([id number])[facility] ([facility])[address] [place] [address] CBC W Auto Differential pane l (Bld)on 05-27-2024 Basophils (Bld) [#/Vol] 0.01 x10*3/uL Normal 0.00-0.10 [facility] Comment on above: Performed By: #### 5 7021-8 ####FLORINDA TARANGO L ([id number])[facility] ([facility])[address] [place] [address] Basophils/100 WBC (Bld) 0.1 % Normal 0.0-2.0 [facility] Comment on above: Performed By: #### 5 7021-8 ####FLORINDA Monroe ([id number])[facility] ([facility])[address] [place] [address] Eosinophils (Bld) [#/Vol] 0.13 x10*3/uL Normal 0.00-0.70 [facility] Comment on above: Performed By: #### 5 7021-8 ####FLORINDA Monroe ([id number])[facility] ([facility])[address] [place] [address] Eosinophils/100 WBC (Bld) 1.4 % Normal 0.0-6.0 [facility] Comment on above: Performed By: #### 5 7021-8 ####FLORINDA Monroe ([id number])[facility] ([facility])[address] [place] [address] Erythrocyte distribution width (RBC) [Ratio] 14.6 % High 11.5-14.5 [facility] Comment on above: Performed By: #### 5 7021-8 ####FLORINDA Monroe ([id number])[facility] ([facility])[address] [place] [address] Hematocrit (Bld) [Volume fraction] 27.4 % Low 41.0-52.0 [facility] Comment on above: Performed By: #### 5 7021-8 ####FLORINDA Monroe ([id number])[facility] ([facility])[address] [place] [address] Hemoglobin (Bld) [Mass/Vol] 9.6 g/dL Low 13.5-17.5 [facility] Comment on above: Performed By: #### 5 7021-8 ####FLORINDA Monroe ([id number])[facility] ([facility])[address] [place] [address] Immature granulocytes (Bld) [#/Vol] 0.11 x10*3/uL Normal 0.00-0.70 [facility] Comment on above: Performed By: #### 5 7021-8 ####FLORINDA Monroe ([id number])[facility] ([facility])[address] [place] [address] Immature granulocytes/100 WBC (Bld) 1.2 % High 0.0-0.9 [facility] Comment on above: Result Comment: Nathaly ture Granulocyte Count (IG) includes promyelocytes, myelocytes and metamyelocytes but does not include bands. Percent differential counts (%) should be interpreted in the context of the absolute cell counts (cells/UL). Performed By: #### 5 7021-8 ####FLORINDA Monroe ([id number])[facility] ([facility])[address] [place] [address] Lymphocytes (Bld) [#/Vol] 0.52 x10*3/uL Low 1.20-4.80 [facility] Comment on above: Performed By: #### 5 7021-8 ####FLORINDA Monroe ([id number])[facility] ([facility])[address] [place] [address] Lymphocytes/100 WBC (Bld) 5.6 % Normal 13.0-44.0 [facility] Comment on above: Performed By: #### 5 7021-8 ####FLORINDA Monroe ([id number])[facility] ([facility])[address] [place] [address] MCH (RBC) [Entitic mass] 28.6 pg Normal 26.0-34.0 [facility] Comment on above: Performed By: #### 5 7021-8 ####FLORINDA Monroe ([id number])[facility] ([facility])[address] [place] [address] MCHC (RBC) [Mass/Vol] 35.0 g/dL Normal 32.0-36.0 [facility] Comment on above: Performed By: #### 5 7021-8 ####FLORINDA Monroe ([id number])[facility] ([facility])[address] [place] [address] MCV (RBC) [Entitic vol] 82 fL Normal 80-100 [facility] Comment on above: Performed By: #### 5 7021-8 ####FLORINDA Monroe ([id number])[facility] ([facility])[address] [place] [address] Monocytes (Bld) [#/Vol] 0.83 x10*3/uL Normal 0.10-1.00 [facility] Comment on above: Performed By: #### 5 7021-8 ####FLORINDA Monroe ([id number])[facility] ([facility])[address] [place] [address] Monocytes/100 WBC (Bld) 8.9 % Normal 2.0-10.0 [facility] Comment on above: Performed By: #### 5 7021-8 ####FLORINDA Monroe ([id number])[facility] ([facility])[address] [place] [address] Neutrophils (Bld) [#/Vol] 7.72 x10*3/uL High 1.20-7.70 [facility] Comment on above: Result Comment: Perc ent differential counts (%) should be interpreted in the context of the absolute cell counts (cells/uL). Performed By: #### 5 7021-8 ####FLORINDA Monroe ([id number])[facility] ([facility])[address] [place] [address] Neutrophils/100 WBC (Bld) 82.8 % Normal 40.0-80.0 [facility] Comment on above: Performed By: #### 5 7021-8 ####FLORINDA Monroe ([id number])[facility] ([facility])[address] [place] [address] Nucleated RBC/100 WBC (Bld) [Ratio] 0.0 /100 WBCs Normal 0.0-0.0 [facility] Comment on above: Performed By: #### 5 7021-8 ####FLORINDA Monroe ([id number])[facility] ([facility])[address] [place] [address] Platelets (Bld) [#/Vol] 114 x10*3/uL Low 150-450 [facility] Comment on above: Performed By: #### 5 7021-8 ####FLORINDA TARANGO L ([id number])[facility] ([facility])[address] [place] [address] RBC (Bld) [#/Vol] 3.36 x10*6/uL Low 4.50-5.90 [facility] Comment on above: Performed By: #### 5 7021-8 ####FLORINDA Monroe ([id number])[facility] ([facility])[address] [place] [address] WBC (Bld) [#/Vol] 9.3 x10*3/uL Normal 4.4-11.3 [facility] Comment on above: Performed By: #### 5 7021-8 ####FLORINDA TARANGO L ([id number])[facility] ([facility])[address] [place] [address] Heparin.unfractionatedon Heparin unfractionated Chromogenic method Qn (PPP) 0.4 IU/mL Normal See Comment Below for Therapeutic Ranges [facility] Comment on above: Order Comment: When two (2) consecutive Heparin Assay, UFH results obtained 4 hours apart are therapeutic, obtain STAT Heparin Assay, UFH every a.m. Nursing to release order.The therapeutic reference range for UFH may be either 0.3-0.6 IU/mL or 0.3-0.7 IU/mL based on the clinical setting for anticoagulant therapy and the associated nomogram used. For Heparin dosing guidelines based on clinical scenario and Heparin Assay results, please refer to local Pharmacy and the [facility] Guidelines for Anticoagulation Therapy available on the [facility] intranet at: [email or web address]_[email or web address] Performed By: #### 3 274-8 ####FLORINDA Monroe ([id number])[facility] ([facility])[address] [place] [address] Heparin unfractionated Chromogenic method Qn (PPP) 0.3 IU/mL Normal See Comment Below for Therapeutic Ranges [facility] Comment on above: Order Comment: Obtai n 4 hours after any Heparin dosage change. Nursing to release order.The therapeutic reference range for UFH may be either 0.3-0.6 IU/mL or 0.3-0.7 IU/mL based on the clinical setting for anticoagulant therapy and the associated nomogram used. For Heparin dosing guidelines based on clinical scenario and Heparin Assay results, please refer to local Pharmacy and the [facility] Guidelines for Anticoagulation Therapy available on the [facility] intranet at: [email or web address] itals_Guidelines_for_[email or web address].aspx Performed By: #### 3 274-8 ####FLORINDA Monroe ([id number])[facility] ([facility])[address] [place] [address] Heparin unfractionated Chromogenic method Qn (PPP) 0.3 IU/mL Normal See Comment Below for Therapeutic Ranges [facility] Comment on above: Order Comment: Obtai n 4 hours after any Heparin dosage change. Nursing to release order.The therapeutic reference range for UFH may be either 0.3-0.6 IU/mL or 0.3-0.7 IU/mL based on the clinical setting for anticoagulant therapy and the associated nomogram used. For Heparin dosing guidelines based on clinical scenario and Heparin Assay results, please refer to local Pharmacy and the [facility] Guidelines for Anticoagulation Therapy available on the [facility] intranet at: [email or web address] itals_Guidelines_for_[email or web address].aspx Performed By: #### 3 274-8 ####FLORINDA Monroe ([id number])[facility] ([facility])[address] [place] [address] Heparin unfractionated Chromogenic method Qn (PPP) 0.2 IU/mL Normal See Comment Below for Therapeutic Ranges [facility] Comment on above: Order Comment: Obtai n 4 hours after any Heparin dosage change. Nursing to release order.The therapeutic reference range for UFH may be either 0.3-0.6 IU/mL or 0.3-0.7 IU/mL based on the clinical setting for anticoagulant therapy and the associated nomogram used. For Heparin dosing guidelines based on clinical scenario and Heparin Assay results, please refer to local Pharmacy and the [facility] Guidelines for Anticoagulation Therapy available on the [facility] intranet at: [email or web address]_Guidelines_for_Anticoagu.aspx Performed By: #### 3 274-8 ####FLORINDA Monroe ([id number])[facility] ([facility])[address] [place] [address] Renal function 2000 panelon 05-27-2024 Albumin BCP dye [Mass/Vol] 2.6 g/dL Low 3.4-5.0 [facility] Comment on above: Performed By: #### 2 4362-6 ####FLORINDA TARANGO L ([id number])[facility] ([facility])[address] [place] [address] Anion gap [Moles/Vol] 13 mmol/L Normal 10-20 [facility] Comment on above: Performed By: #### 2 4362-6 ####FLORINDA TARANGO L ([id number])[facility] ([facility])[address] [place] [address] Calcium [Mass/Vol] 8.9 mg/dL Normal 8.6-10.6 [facility] Comment on above: Performed By: #### 2 4362-6 ####FLORINDA HYDEMOTZER L ([id number])[facility] ([facility])[address] [place] [address] Chloride [Moles/Vol] 107 mmol/L Normal 98-107 [facility] Comment on above: Performed By: #### 2 4362-6 ####FLORINDA HYDEMOTZER L ([id number])[facility] ([facility])[address] [place] [address] CO2 [Moles/Vol] 28 mmol/L Normal 21-32 [facility] Comment on above: Performed By: #### 2 4362-6 ####FLORINDA Monroe ([id number])[facility] ([facility])[address] [place] [address] Creatinine [Mass/Vol] 2.05 mg/dL High 0.50-1.30 [facility] Comment on above: Performed By: #### 2 4362-6 ####FLORINDA Monroe ([id number])[facility] ([facility])[address] [place] [address] Glomerular filtration rate/1.73 sq M.predicted 38 mL/min/1.73m*2 Low >60 [facility] Comment on above: Result Comment: Calc ulations of estimated GFR are performed using the 2020 CKD-EPI Study Refit equation without the race variable for the IDMS-Traceable creatinine methods.https://jasn.asnjournals.org/content/early//ASN. 3816353582 Performed By: #### 2 4362-6 ####FLORINDA Monroe ([id number])[facility] ([facility])[address] [place] [address] Glucose [Mass/Vol] 102 mg/dL High 74-99 [facility] Comment on above: Performed By: #### 2 4362-6 ####FLORINDA Monroe ([id number])[facility] ([facility])[address] [place] [address] Phosphate [Mass/Vol] 3.6 mg/dL Normal 2.5-4.9 [facility] Comment on above: Result Comment: The performance characteristics of phosphorus testing in heparinized plasma have been validated by the individual laboratory site where testing is performed. Testing on heparinized plasma is not approved by the FDA; however, such approval is not necessary. Performed By: #### 2 4362-6 ####FLORINDA Monroe ([id number])[facility] ([facility])[address] [place] [address] Potassium [Moles/Vol] 3.6 mmol/L Normal 3.5-5.3 [facility] Comment on above: Performed By: #### 2 4362-6 ####FLORINDA TARANGO L ([id number])[facility] ([facility])[address] [place] [address] Sodium [Moles/Vol] 144 mmol/L Normal 136-145 [facility] Comment on above: Performed By: #### 2 4362-6 ####FLORINDA TARANGO L ([id number])[facility] ([facility])[address] [place] [address] Urea nitrogen [Mass/Vol] 51 mg/dL High 6-23 [facility] Comment on above: Performed By: #### 2 4362-6 ####FLORINDA Monroe ([id number])[facility] ([facility])[id number] [place] [address] Tacrolimuson 05-27-2024 Tacrolimus (Bld) [Mass/Vol] 5.3 ng/mL Normal <=15.0 [facility] Comment on above: Order Comment: NOTE: Result was obtained using achemiluminescent microparticle immunoassay(CMIA) on the [employer] i system.Optimal therapeutic ranges for immunosuppressantdrugs depend upon an individualpatient's current clinical state, type oforgan transplant, time post-transplant,co-administration of other immunosuppressants,and other clinical factors. The results ofthis test should be correlated with additionalclinical and laboratory data before changesin treatment regimens are made. Performed By: #### 1 1253-2 ####FLORINDA Monroe ([id number])[facility] ([facility])[address] [place] [address] Activated clotting timeon ACT Coag (Bld) 160 s Normal 83-199 [facility] Comment on above: Result Comment: Targ et ACT range will vary based on the patient population, clinical status, and surgical intervention occurring. Performed By: #### 3 184-9 ####FLORINDA TARANGO L ([id number])[facility] ([facility])[address] [place] [address] ACT Coag (Bld) [address] Comment on above: Result Comment: Targ et ACT range will vary based on the patient population, clinical status, and surgical intervention occurring. Performed By: #### 3 184-9 ####FLORINDA Monroe ([id number])[facility] [facility])[address] [place] [address] ACT Coag (Bld) [address] Comment on above: Result Comment: Targ et ACT range will vary based on the patient population, clinical status, and surgical intervention occurring. Performed By: #### 3 184-9 ####FLORINDA Monroe ([id number])[facility] ([facility])[address] [place] [address] ACT Coag (Bld) [address] Comment on above: Result Comment: Targ et ACT range will vary based on the patient population, clinical status, and surgical intervention occurring. Performed By: #### 3 184-9 ####FLORINDA Monroe ([id number])[facility] ([facility])[address] [place] [address] ACT Coag (Bld) [address] Comment on above: Result Comment: Targ et ACT range will vary based on the patient population, clinical status, and surgical intervention occurring. Performed By: #### 3 184-9 ####FLORINDA Monroe ([id number])[facility] ([facility])[address] [place] [address] BB ORDER ONLY - ANTIBODY JENA NTIFICATIONon 05-26-2024 Blood group antibody investigation (P/RBC) [Interp] Anti-D [facility] Comment on above: Performed By: #### A BID ####FLORINDA Monroe ([id number])[facility] ([facility])[address] [place] [address] CASE # [id number] [facility] Comment on above: Performed By: #### A BID ####FLORINDA Monroe ([id number])[facility] ([facility])[address] [place] [address] Blood type and Indirect anti body screen panel (Bld)on 05-26-2024 ABO group Nom (Bld) O Normal [facility] Comment on above: Performed By: #### 3 4532-2 ####FLORINDA Monroe ([id number])[facility] ([facility])[address] [place] [address] Blood group antibody screen Ql Positive [facility] Comment on above: Performed By: #### 3 4532-2 ####FLORINDA Monroe ([id number])[facility] ([facility])[address] [place] [address] D Ag Ql (Bld) Negative [facility] Comment on above: Performed By: #### 3 4532-2 ####FLORINDA Monroe ([id number])[facility] ([facility])[address] [place] [address], [place] [address] CARDIAC CATHETERIZATION PROC EDUREon 05-26-2024 CARDIAC CATHETERIZATION PROCEDURE [facility] CBC W Auto Differential pane l (Bld)on 05-26-2024 Basophils (Bld) [#/Vol] 0.01 x10*3/uL Normal 0.00-0.10 [facility] Comment on above: Performed By: #### 5 7021-8 ####FLORINDA Monroe ([id number])[facility] ([facility])[address] [place] [address], [place] [address] Basophils/100 WBC (Bld) 0.1 % Normal 0.0-2.0 [facility] Comment on above: Performed By: #### 5 7021-8 ####FLORINDA Monroe ([id number])[facility] ([facility])[address] [place] [address], [place] [address] Eosinophils (Bld) [#/Vol] 0.06 x10*3/uL Normal 0.00-0.70 [facility] Comment on above: Performed By: #### 5 7021-8 ####FLORINDA Monroe ([id number])[facility] ([facility])[address] [place] [address] Eosinophils/100 WBC (Bld) 0.5 % Normal 0.0-6.0 [facility] Comment on above: Performed By: #### 5 7021-8 ####FLORINDA Monroe ([id number])[facility] ([facility])[address] [place] [address] Erythrocyte distribution width (RBC) [Ratio] 14.3 % Normal 11.5-14.5 [facility] Comment on above: Performed By: #### 5 7021-8 ####FLORINDA Monroe ([id number])[facility] ([facility])[address] [place] [address] Hematocrit (Bld) [Volume fraction] 26.2 % Low 41.0-52.0 [facility] Comment on above: Performed By: #### 5 7021-8 ####FLORINDA Monroe ([id number])[facility] ([facility])[address] [place] [address] Hemoglobin (Bld) [Mass/Vol] 8.7 g/dL Low 13.5-17.5 [facility] Comment on above: Performed By: #### 5 7021-8 ####FLORINDA Monroe ([id number])[facility] ([facility])[address] [place] [address] Immature granulocytes (Bld) [#/Vol] 0.16 x10*3/uL Normal 0.00-0.70 [facility] Comment on above: Performed By: #### 5 7021-8 ####FLORINDA Monroe ([id number])[facility] ([facility])[address] [place] [address] Immature granulocytes/100 WBC (Bld) 1.5 % High 0.0-0.9 [facility] Comment on above: Result Comment: Nathaly ture Granulocyte Count (IG) includes promyelocytes, myelocytes and metamyelocytes but does not include bands. Percent differential counts (%) should be interpreted in the context of the absolute cell counts (cells/UL). Performed By: #### 5 7021-8 ####FLORINDA Monroe ([id number])[facility] ([facility])[address] [place] [address] Lymphocytes (Bld) [#/Vol] 0.75 x10*3/uL Low 1.20-4.80 [facility] Comment on above: Performed By: #### 5 7021-8 ####FLORINDA Monroe ([id number])[facility] ([facility])[address] [place] [address] Lymphocytes/100 WBC (Bld) 6.8 % Normal 13.0-44.0 [facility] Comment on above: Performed By: #### 5 7021-8 ####FLORINDA Monroe ([id number])[facility] ([facility])[address] [place] [address] MCH (RBC) [Entitic mass] 28.7 pg Normal 26.0-34.0 [facility] Comment on above: Performed By: #### 5 7021-8 ####FLORINDA Monroe ([id number])[facility] ([facility])[address] [place] [address] MCHC (RBC) [Mass/Vol] 33.2 g/dL Normal 32.0-36.0 [facility] Comment on above: Performed By: #### 5 7021-8 ####FLORINDA Monroe ([id number])[facility] ([facility])[address] [place] [address] MCV (RBC) [Entitic vol] 87 fL Normal 80-100 [facility] Comment on above: Performed By: #### 5 7021-8 ####FLORINDA Monroe ([id number])[facility] ([facility])[address] [place] [address] Monocytes (Bld) [#/Vol] 0.79 x10*3/uL Normal 0.10-1.00 [facility] Comment on above: Performed By: #### 5 7021-8 ####FLORINDA Monroe ([id number])[facility] ([facility])[address] [place] [address] Monocytes/100 WBC (Bld) 7.2 % Normal 2.0-10.0 [facility] Comment on above: Performed By: #### 5 7021-8 ####FLORINDA TARANGO L ([id number])[facility] ([facility])[address] [place] [address] Neutrophils (Bld) [#/Vol] 9.25 x10*3/uL High 1.20-7.70 [facility] Comment on above: Result Comment: Perc ent differential counts (%) should be interpreted in the context of the absolute cell counts (cells/uL). Performed By: #### 5 7021-8 ####FLORINDA Monroe ([id number])[facility] ([facility])[address] [place] [address] Neutrophils/100 WBC (Bld) 83.9 % Normal 40.0-80.0 [facility] Comment on above: Performed By: #### 5 7021-8 ####FLORINDA Monroe ([id number])[facility] ([facility])[address] [place] [address] Nucleated RBC/100 WBC (Bld) [Ratio] 0.0 /100 WBCs Normal 0.0-0.0 [facility] Comment on above: Performed By: #### 5 7021-8 ####FLORINDA TARANGO L ([id number])[facility] ([facility])[address] [place] [address] Platelets (Bld) [#/Vol] 108 x10*3/uL Low 150-450 [facility] Comment on above: Performed By: #### 5 7021-8 ####FLORINDA TARANGO L ([id number])[facility] ([facility])[address] [place] [address] RBC (Bld) [#/Vol] 3.03 x10*6/uL Low 4.50-5.90 [facility] Comment on above: Performed By: #### 5 7021-8 ####FLORINDA Monroe ([id number])[facility] ([facility])[address] [place] [address] WBC (Bld) [#/Vol] 11.0 x10*3/uL Normal 4.4-11.3 [facility] Comment on above: Performed By: #### 5 7021-8 ####FLORINDA TARANGO L ([id number])[facility] ([facility])[address] [place] [address] Basophils (Bld) [#/Vol] 0.01 x10*3/uL Normal 0.00-0.10 [facility] Comment on above: Performed By: #### 5 7021-8 ####FLORINDA TARANGO L ([id number])[facility] ([facility])[address] [place] [address] Basophils/100 WBC (Bld) 0.1 % Normal 0.0-2.0 [facility] Comment on above: Performed By: #### 5 7021-8 ####FLORINDA Monroe ([id number])[facility] ([facility])[address] [place] [address] Eosinophils (Bld) [#/Vol] 0.06 x10*3/uL Normal 0.00-0.70 [facility] Comment on above: Performed By: #### 5 7021-8 ####FLORINDA TARANGO L ([id number])[facility] ([facility])[address] [place] [address] Eosinophils/100 WBC (Bld) 0.5 % Normal 0.0-6.0 [facility] Comment on above: Performed By: #### 5 7021-8 ####FLORINDA Monroe ([id number])[facility] ([facility])[address] [place] [address] Erythrocyte distribution width (RBC) [Ratio] 14.3 % Normal 11.5-14.5 [facility] Comment on above: Performed By: #### 5 7021-8 ####FLORINDA Monroe ([id number])[facility] ([facility])[address] [place] [address] Hematocrit (Bld) [Volume fraction] 25.8 % Low 41.0-52.0 [facility] Comment on above: Performed By: #### 5 7021-8 ####FLORINDA HYDEMOTZER L ([id number])[facility] ([facility])[address] [place] [address] Hemoglobin (Bld) [Mass/Vol] 8.7 g/dL Low 13.5-17.5 [facility] Comment on above: Performed By: #### 5 7021-8 ####FLORINDA Monroe ([id number])[facility] ([facility])[address] [place] [address] Immature granulocytes (Bld) [#/Vol] 0.13 x10*3/uL Normal 0.00-0.70 [facility] Comment on above: Performed By: #### 5 7021-8 ####FLORINDA Monroe ([id number])[facility] ([facility])[address] [place] [address] Immature granulocytes/100 WBC (Bld) 1.2 % High 0.0-0.9 [facility] Comment on above: Result Comment: Nathaly ture Granulocyte Count (IG) includes promyelocytes, myelocytes and metamyelocytes but does not include bands. Percent differential counts (%) should be interpreted in the context of the absolute cell counts (cells/UL). Performed By: #### 5 7021-8 ####FLORINDA TARANGO L ([id number])[facility] ([facility])[address] [place] [address] Lymphocytes (Bld) [#/Vol] 0.71 x10*3/uL Low 1.20-4.80 [facility] Comment on above: Performed By: #### 5 7021-8 ####FLORINDA HYDEMOTZER L ([id number])[facility] ([facility])[address] [place] [address] Lymphocytes/100 WBC (Bld) 6.4 % Normal 13.0-44.0 [facility] Comment on above: Performed By: #### 5 7021-8 ####FLORINDA Monroe ([id number])[facility] ([facility])[address] [place] [address] MCH (RBC) [Entitic mass] 29.2 pg Normal 26.0-34.0 [facility] Comment on above: Performed By: #### 5 7021-8 ####FLORINDA Monroe ([id number])[facility] ([facility])[address] [place] [address] MCHC (RBC) [Mass/Vol] 33.7 g/dL Normal 32.0-36.0 [facility] Comment on above: Performed By: #### 5 7021-8 ####FLORINDA Monroe ([id number])[facility] ([facility])[address] [place] [address] MCV (RBC) [Entitic vol] 87 fL Normal 80-100 [facility] Comment on above: Performed By: #### 5 7021-8 ####FLORINDA Monroe ([id number])[facility] ([facility])[address] [place] [address] Monocytes (Bld) [#/Vol] 0.87 x10*3/uL Normal 0.10-1.00 [facility] Comment on above: Performed By: #### 5 7021-8 ####FLORINDA Monroe ([id number])[facility] ([facility])[address] [place] [address] Monocytes/100 WBC (Bld) 7.8 % Normal 2.0-10.0 [facility] Comment on above: Performed By: #### 5 7021-8 ####FLORINDA Monroe ([id number])[facility] ([facility])[address] [place] [address] Neutrophils (Bld) [#/Vol] 9.37 x10*3/uL High 1.20-7.70 [facility] Comment on above: Result Comment: Perc ent differential counts (%) should be interpreted in the context of the absolute cell counts (cells/uL). Performed By: #### 5 7021-8 ####FLORINDA Monroe ([id number])[facility] ([facility])[address] [place] [address] Neutrophils/100 WBC (Bld) 84.0 % Normal 40.0-80.0 [facility] Comment on above: Performed By: #### 5 7021-8 ####FLORINDA Monroe ([id number])[facility] ([facility])[address] [place] [address] Nucleated RBC/100 WBC (Bld) [Ratio] 0.0 /100 WBCs Normal 0.0-0.0 [facility] Comment on above: Performed By: #### 5 7021-8 ####FLORINDA Monroe ([id number])[facility] ([facility])[address]87 [place] [address] Platelets (Bld) [#/Vol] 102 x10*3/uL Low 150-450 [facility] Comment on above: Performed By: #### 5 7021-8 ####FLORINDA Monroe ([id number])[facility] ([facility])[address] [place] [address] RBC (Bld) [#/Vol] 2.98 x10*6/uL Low 4.50-5.90 [facility] Comment on above: Performed By: #### 5 7021-8 ####FLORINDA Monroe ([id number])[facility] ([facility])[address] [place] [address] WBC (Bld) [#/Vol] 11.2 x10*3/uL Normal 4.4-11.3 [facility] Comment on above: Performed By: #### 5 7021-8 ####FLORINDA Monroe ([id number])[facility] ([facility])[address] [place] [address] Heparin.unfractionatedon Heparin unfractionated Chromogenic method Qn (PPP) <0.1 Normal See Comment Below for Therapeutic Ranges [facility] Comment on above: Order Comment: Obtai n 4 hours after any Heparin dosage change. Nursing to release order.The therapeutic reference range for UFH may be either 0.3-0.6 IU/mL or 0.3-0.7 IU/mL based on the clinical setting for anticoagulant therapy and the associated nomogram used. For Heparin dosing guidelines based on clinical scenario and Heparin Assay results, please refer to local Pharmacy and the [facility] Guidelines for Anticoagulation Therapy available on the [facility] intranet at: [email or web address] [email or web address] Performed By: #### 3 274-8 ####FLORINDA Monroe ([id number])[facility] ([facility])[address] [place] [address] Heparin unfractionated Chromogenic method Qn (PPP) 0.3 IU/mL Normal See Comment Below for Therapeutic Ranges [facility] Comment on above: Order Comment: Obtai n 4 hours after initiation of heparin infusion. Nursing to release order.The therapeutic reference range for UFH may be either 0.3-0.6 IU/mL or 0.3-0.7 IU/mL based on the clinical setting for anticoagulant therapy and the associated nomogram used. For Heparin dosing guidelines based on clinical scenario and Heparin Assay results, please refer to local Pharmacy and the [facility] Guidelines for Anticoagulation Therapy available on the [facility] intranet at: [email or web address] Performed By: #### 3 274-8 ####FLORINDA Monroe ([id number])[facility] ([facility])[address] [place] [address] Magnesiumon 05-26-2024 Magnesium [Mass/Vol] 2.16 mg/dL Normal 1.60-2.40 [facility] Comment on above: Performed By: #### 1 9123-9 ####FLORINDA Monroe ([id number])[facility] ([facility])[address] [place] [address] PATH REVIEW-IMMUNOHEMATOLOGY on 05-26-2024 PATH REV-IMMUNOHEMATOLOG Y-PR30 SEE COMMENT Normal [facility] Comment on above: Result Comment: ANTI BODY DETECTION SCREEN IS POSITIVE. ANTIBODY PANEL WAS PERFORMED.THE AUTOCONTROL IS NEGATIVE.PREVIOUSLY IDENTIFIED ALLOANTIBODY ANTI-D IS REACTING.ALL OTHER COMMON CLINICALLY SIGNIFICANT ALLOANTIBODIES HAVE BEEN RULED OUT.FULL CROSSMATCHED D-ANTIGEN NEGATIVE DONOR RBC UNITS SHOULD BE SELECTED FOR TRANSFUSION FOR THIS PATIENT. Performed By: #### P R30 ####FLORINDA Monroe ([id number])[facility] ([facility] [place] [address] Renal function 2000 panelon 05-26-2024 Albumin BCP dye [Mass/Vol] 2.7 g/dL Low 3.4-5.0 [facility] Comment on above: Performed By: #### 2 4362-6 ####FLORINDA Monroe ([id number])[facility] ([facility])[address] [place] [address] Anion gap [Moles/Vol] 14 mmol/L Normal 10-20 [facility] Comment on above: Performed By: #### 2 4362-6 ####FLORINDA Monroe ([id number])[facility] ([facility])[address] [place] [address] Calcium [Mass/Vol] 8.8 mg/dL Normal 8.6-10.6 [facility] Comment on above: Performed By: #### 2 4362-6 ####FLORINDA Monroe ([id number])[facility] ([facility])[address] [place] [address] Chloride [Moles/Vol] 107 mmol/L Normal 98-107 [facility] Comment on above: Performed By: #### 2 4362-6 ####FLORINDA Monroe ([id number])[facility] ([facility])[address] [place] [address] CO2 [Moles/Vol] 27 mmol/L Normal 21-32 [facility] Comment on above: Performed By: #### 2 4362-6 ####FLORINDA Monroe ([id number])[facility] ([facility])[address] [place] [address] Creatinine [Mass/Vol] 2.30 mg/dL High 0.50-1.30 [facility] Comment on above: Performed By: #### 2 4362-6 ####FLORINDA TARANGO L ([id number])[facility] ([facility])[address] [place] [address] Glomerular filtration rate/1.73 sq M.predicted 33 mL/min/1.73m*2 Low >60 [facility] Comment on above: Result Comment: Calc ulations of estimated GFR are performed using the 2020 CKD-EPI Study Refit equation without the race variable for the IDMS-Traceable creatinine methods.https://jasn.asnjournals.org/content//ASN. 8058547471 Performed By: #### 2 4362-6 ####FLORINDA Monroe ([id number])[facility] ([facility])[address] [place] [address] Glucose [Mass/Vol] 170 mg/dL High 74-99 [facility] Comment on above: Performed By: #### 2 4362-6 ####FLORINDA TARANGO L ([id number])[facility] ([facility])[address] [place] [address] Phosphate [Mass/Vol] 3.5 mg/dL Normal 2.5-4.9 [facility] Comment on above: Result Comment: The performance characteristics of phosphorus testing in heparinized plasma have been validated by the individual laboratory site where testing is performed. Testing on heparinized plasma is not approved by the FDA; however, such approval is not necessary. Performed By: #### 2 4362-6 ####FLORINDA TARANGO L ([id number])[facility] ([facility])[address] [place] [address] Potassium [Moles/Vol] 3.9 mmol/L Normal 3.5-5.3 [facility] Comment on above: Performed By: #### 2 4362-6 ####FLORINDA Monroe ([id number])[facility] ([facility])[address] [place] [address] Sodium [Moles/Vol] 144 mmol/L Normal 136-145 [facility] Comment on above: Performed By: #### 2 4362-6 ####FLORINDA TARANGO L ([id number])[facility] ([facility])[address] [place] [address] Urea nitrogen [Mass/Vol] 53 mg/dL High 6-23 [facility] Comment on above: Performed By: #### 2 4362-6 ####FLORINDA Monroe ([id number])[facility] ([facility])[address] [place] [address] Albumin BCP dye [Mass/Vol] 2.7 g/dL Low 3.4-5.0 [facility] Comment on above: Performed By: #### 2 4362-6 ####FLORINDA TARANGO L ([id number])[facility] ([facility])[address] [place] [address] Anion gap [Moles/Vol] 13 mmol/L Normal 10-20 [facility] Comment on above: Performed By: #### 2 4362-6 ####FLORINDA TARANGO L ([id number])[facility] ([facility])[address] [place] [address] Calcium [Mass/Vol] 8.8 mg/dL Normal 8.6-10.6 [facility] Comment on above: Performed By: #### 2 4362-6 ####FLORINDA TARANGO L ([id number])[facility] ([facility])[address] [place] [address] Chloride [Moles/Vol] 105 mmol/L Normal 98-107 [facility] Comment on above: Performed By: #### 2 4362-6 ####FLORINDA TARANGO L ([id number])[facility] ([facility])[address] [place] [address] CO2 [Moles/Vol] 29 mmol/L Normal 21-32 [facility] Comment on above: Performed By: #### 2 4362-6 ####FLORINDA Monroe ([id number])[facility] ([facility])[address] [place] [address] Creatinine [Mass/Vol] 2.36 mg/dL High 0.50-1.30 [facility] Comment on above: Performed By: #### 2 4362-6 ####FLORINDA Monroe ([id number])[facility] ([facility])[id number] [place] [id number] Glomerular filtration rate/1.73 sq M.predicted 32 mL/min/1.73m*2 Low >60 [facility] Comment on above: Result Comment: Calc ulations of estimated GFR are performed using the 2020 CKD-EPI Study Refit equation without the race variable for the IDMS-Traceable creatinine methods.https://jasn.asnjournals.org/content/early/ASN. [id number] Performed By: #### 2 4362-6 ####FLORINDA Monroe ([id number])[facility] ([facility])[address] [place] [address] Glucose [Mass/Vol] 119 mg/dL High 74-99 [facility] Comment on above: Performed By: #### 2 4362-6 ####FLORINDA Monroe ([id number])[facility] ([facility])[address] [place] [address] Phosphate [Mass/Vol] 4.1 mg/dL Normal 2.5-4.9 [facility] Comment on above: Result Comment: The performance characteristics of phosphorus testing in heparinized plasma have been validated by the individual laboratory site where testing is performed. Testing on heparinized plasma is not approved by the FDA; however, such approval is not necessary. Performed By: #### 2 4362-6 ####FLORINDA Monroe ([id number])[facility] ([facility])[address] [place] [address] Potassium [Moles/Vol] 3.3 mmol/L Low 3.5-5.3 [facility] Comment on above: Performed By: #### 2 4362-6 ####FLORINDA Monroe ([id number])[facility] ([facility])[address] [place] [address] Sodium [Moles/Vol] 144 mmol/L Normal 136-145 [facility] Comment on above: Performed By: #### 2 4362-6 ####FLORINDA Monroe ([id number])[facility] ([facility])[address] [place] [address] Urea nitrogen [Mass/Vol] 67 mg/dL High 6-23 [facility] Comment on above: Performed By: #### 2 4362-6 ####FLORINDA Monroe ([id number])[facility] ([facility])[id number] [place] [address] Tacrolimuson 05-26-2024 Tacrolimus (Bld) [Mass/Vol] 5.9 ng/mL Normal <=15.0 [facility] Comment on above: Order Comment: NOTE: Result was obtained using achemiluminescent microparticle immunoassay(CMIA) on the Systems [employer] Developer i system.Optimal therapeutic ranges for immunosuppressantdrugs depend upon an individualpatient's current clinical state, type oforgan transplant, time post-transplant,co-administration of other immunosuppressants,and other clinical factors. The results ofthis test should be correlated with additionalclinical and laboratory data before changesin treatment regimens are made. Performed By: #### 1 1253-2 ####FLORINDA Monroe ([id number])[facility] ([facility])[address] [place] [address] BB ORDER ONLY - ANTIBODY JENA NTIFICATIONon 05-25-2024 Blood group antibody investigation (P/RBC) [Interp] ANTI-D Normal [facility] Comment on above: Performed By: #### A BID ####FLORINDA Monroe ([id number])[facility] ([facility] [place] [address] CASE # [id number] [facility] Comment on above: Performed By: #### A BID ####FLORINDA Monroe ([id number])[facility] ([facility])[address] [facility] [place] [address] Blood type and Indirect anti body screen panel (Bld)on 05-25-2024 ABO group Nom (Bld) O [facility] Comment on above: Performed By: #### 3 4532-2 ####FLORINDA Monroe ([id number])[facility] ([facility])[address] [facility] [address] Blood group antibody screen Ql Positive [facility] Comment on above: Performed By: #### 3 4532-2 ####FLORINDA Monroe ([id number])[facility] ([facility])[address] [facility] [place] [address] D Ag Ql (Bld) Negative [facility] Comment on above: Performed By: #### 3 4532-2 ####FLORINDA Monroe ([id number])[facility] ([facility])[address] [place] [address] CBC W Auto Differential pane l (Bld)on 05-25-2024 Basophils (Bld) [#/Vol] 0.01 x10*3/uL Normal 0.00-0.10 [facility] Comment on above: Performed By: #### 5 7021-8 ####FLORINDA Monroe ([id number])[facility] ([facility])[address] [facility] [place] [address] Basophils/100 WBC (Bld) 0.1 % Normal 0.0-2.0 [facility] Comment on above: Performed By: #### 5 7021-8 ####FLORINDA Monroe ([id number])[facility] ([facility])[address] [facility] [place] [address] Eosinophils (Bld) [#/Vol] 0.00 x10*3/uL Normal 0.00-0.70 [facility] Comment on above: Performed By: #### 5 7021-8 ####FLORINDA Monroe ([id number])[facility] ([facility])[address] [place] [address] Eosinophils/100 WBC (Bld) 0.0 % Normal 0.0-6.0 [facility] Comment on above: Performed By: #### 5 7021-8 ####FLORINDA Monroe ([id number])[facility] ([facility])[address] [place] [address] Erythrocyte distribution width (RBC) [Ratio] 13.6 % Normal 11.5-14.5 [facility] Comment on above: Performed By: #### 5 7021-8 ####FLORINDA Monroe ([id number])[facility] ([facility])[address] [place] [address] Hematocrit (Bld) [Volume fraction] 22.7 % Low 41.0-52.0 [facility] Comment on above: Performed By: #### 5 7021-8 ####FLORINDA Monroe ([id number])[facility] ([facility])[address] [place] [address] Hemoglobin (Bld) [Mass/Vol] 7.3 g/dL Low 13.5-17.5 [facility] Comment on above: Performed By: #### 5 7021-8 ####FLORINDA Monroe ([id number])[facility] ([facility])[address] [place] [address] Immature granulocytes (Bld) [#/Vol] 0.08 x10*3/uL Normal 0.00-0.70 [facility] Comment on above: Performed By: #### 5 7021-8 ####FLORINDA TARANGO L ([id number])[facility] ([facility])[address] [place] [address] Immature granulocytes/100 WBC (Bld) 0.8 % Normal 0.0-0.9 [facility] Comment on above: Result Comment: Nathaly ture Granulocyte Count (IG) includes promyelocytes, myelocytes and metamyelocytes but does not include bands. Percent differential counts (%) should be interpreted in the context of the absolute cell counts (cells/UL). Performed By: #### 5 7021-8 ####FLORINDA Monroe ([id number])[facility] ([facility])[address] [place] [address] Lymphocytes (Bld) [#/Vol] 0.48 x10*3/uL Low 1.20-4.80 [facility] Comment on above: Performed By: #### 5 7021-8 ####FLORINDA Monroe ([id number])[facility] ([facility])[address] [place] [address] Lymphocytes/100 WBC (Bld) 5.1 % Normal 13.0-44.0 [facility] Comment on above: Performed By: #### 5 7021-8 ####FLORINDA Monroe ([id number])[facility] ([facility])[address] [place] [address] MCH (RBC) [Entitic mass] 28.7 pg Normal 26.0-34.0 [facility] Comment on above: Performed By: #### 5 7021-8 ####FLORINDA Monroe ([id number])[facility] ([facility])[address] [place] [address] MCHC (RBC) [Mass/Vol] 32.2 g/dL Normal 32.0-36.0 [facility] Comment on above: Performed By: #### 5 7021-8 ####FLORINDA Monroe ([id number])[facility] ([facility])[address] [place] [address] MCV (RBC) [Entitic vol] 89 fL Normal 80-100 [facility] Comment on above: Performed By: #### 5 7021-8 ####FLORINDA Monroe ([id number])[facility] ([facility])[address] [place] [address] Monocytes (Bld) [#/Vol] 0.77 x10*3/uL Normal 0.10-1.00 [facility] Comment on above: Performed By: #### 5 7021-8 ####FLORINDA Monroe ([id number])[facility] ([facility])[address] [place] [address] Monocytes/100 WBC (Bld) 8.1 % Normal 2.0-10.0 [facility] Comment on above: Performed By: #### 5 7021-8 ####FLORINDA Monroe ([id number])[facility] ([facility])[address] [place] [address] Neutrophils (Bld) [#/Vol] 8.13 x10*3/uL High 1.20-7.70 [facility] Comment on above: Result Comment: Perc ent differential counts (%) should be interpreted in the context of the absolute cell counts (cells/uL). Performed By: #### 5 7021-8 ####FLORINDA Monroe ([id number])[facility] ([facility])[address] [place] [address] Neutrophils/100 WBC (Bld) 85.9 % Normal 40.0-80.0 [facility] Comment on above: Performed By: #### 5 7021-8 ####FLORINDA Monroe ([id number])[facility] ([facility])[address] [place] [address] Nucleated RBC/100 WBC (Bld) [Ratio] 0.0 /100 WBCs Normal 0.0-0.0 [facility] Comment on above: Performed By: #### 5 7021-8 ####FLORINDA TARANGO L ([id number])[facility] ([facility])[address] [place] [address] Platelets (Bld) [#/Vol] 79 x10*3/uL Low 150-450 [facility] Comment on above: Performed By: #### 5 7021-8 ####FLORINDA TARANGO L ([id number])[facility] ([facility])[address] [place] [address] RBC (Bld) [#/Vol] 2.54 x10*6/uL Low 4.50-5.90 [facility] Comment on above: Performed By: #### 5 7021-8 ####FLORINDA Monroe ([id number])[facility] ([facility])[address] [place] [address] WBC (Bld) [#/Vol] 9.5 x10*3/uL Normal 4.4-11.3 [facility] Comment on above: Performed By: #### 5 7021-8 ####FLORINDA Monroe ([id number])[facility] ([facility])[address] [place] [address] Basophils (Bld) [#/Vol] 0.01 x10*3/uL Normal 0.00-0.10 [facility] Comment on above: Performed By: #### 5 7021-8 ####FLORINDA Monroe ([id number])[facility] ([facility])[address] [place] [address] Basophils/100 WBC (Bld) 0.1 % Normal 0.0-2.0 [facility] Comment on above: Performed By: #### 5 7021-8 ####FLORINDA Monroe ([id number])[facility] ([facility])[address] [place] [address] Eosinophils (Bld) [#/Vol] 0.00 x10*3/uL Normal 0.00-0.70 [facility] Comment on above: Performed By: #### 5 7021-8 ####FLORINDA Monroe ([id number])[facility] ([facility])[address] [place] [address] Eosinophils/100 WBC (Bld) 0.0 % Normal 0.0-6.0 [facility] Comment on above: Performed By: #### 5 7021-8 ####FLORINDA Monroe ([id number])[facility] ([facility])[address] [place] [address] Erythrocyte distribution width (RBC) [Ratio] 13.5 % Normal 11.5-14.5 [facility] Comment on above: Performed By: #### 5 7021-8 ####FLORINDA WESTONTZER L ([id number])[facility] ([facility])[address] [place] [address] Hematocrit (Bld) [Volume fraction] 21.1 % Low 41.0-52.0 [facility] Comment on above: Performed By: #### 5 7021-8 ####FLORINDA TARANGO L ([id number])[facility] ([facility])[address] [place] [address] Hemoglobin (Bld) [Mass/Vol] 6.8 g/dL Low 13.5-17.5 [facility] Comment on above: Performed By: #### 5 7021-8 ####FLORINDA TARANGO L ([id number])[facility] ([facility])[address] [place] [address] Immature granulocytes (Bld) [#/Vol] 0.09 x10*3/uL Normal 0.00-0.70 [facility] Comment on above: Performed By: #### 5 7021-8 ####FLORINDA TARANGO L ([id number])[facility] ([facility])[address] [place] [address] Immature granulocytes/100 WBC (Bld) 0.9 % Normal 0.0-0.9 [facility] Comment on above: Result Comment: Nathaly ture Granulocyte Count (IG) includes promyelocytes, myelocytes and metamyelocytes but does not include bands. Percent differential counts (%) should be interpreted in the context of the absolute cell counts (cells/UL). Performed By: #### 5 7021-8 ####FLORINDA WESTONTZER L ([id number])[facility] ([facility])[address] [place] [address] Lymphocytes (Bld) [#/Vol] 0.43 x10*3/uL Low 1.20-4.80 [facility] Comment on above: Performed By: #### 5 7021-8 ####FLORINDA TARANGO L ([id number])[facility] ([facility])[address] [place] [address] Lymphocytes/100 WBC (Bld) 4.5 % Normal 13.0-44.0 [facility] Comment on above: Performed By: #### 5 7021-8 ####FLORINDA Monroe ([id number])[facility] ([facility])[address] [place] [address] MCH (RBC) [Entitic mass] 28.5 pg Normal 26.0-34.0 [facility] Comment on above: Performed By: #### 5 7021-8 ####FLORINDA Monroe ([id number])[facility] ([facility])[address] [place] [address] MCHC (RBC) [Mass/Vol] 32.2 g/dL Normal 32.0-36.0 [facility] Comment on above: Performed By: #### 5 7021-8 ####FLORINDA Monroe ([id number])[facility] ([facility])[address] [place] [address] MCV (RBC) [Entitic vol] 88 fL Normal 80-100 [facility] Comment on above: Performed By: #### 5 7021-8 ####FLORINDA Monroe ([id number])[facility] ([facility])[address] [place] [address] Monocytes (Bld) [#/Vol] 0.78 x10*3/uL Normal 0.10-1.00 [facility] Comment on above: Performed By: #### 5 7021-8 ####FLORINDA Monroe ([id number])[facility] ([facility])[address] [place] [address] Monocytes/100 WBC (Bld) 8.2 % Normal 2.0-10.0 [facility] Comment on above: Performed By: #### 5 7021-8 ####FLORINDA Monroe ([id number])[facility] ([facility])[address] [place] [address] Neutrophils (Bld) [#/Vol] 8.20 x10*3/uL High 1.20-7.70 [facility] Comment on above: Result Comment: Perc ent differential counts (%) should be interpreted in the context of the absolute cell counts (cells/uL). Performed By: #### 5 7021-8 ####FLORINDA Monroe ([id number])[facility] ([facility])[address] [place] [address] Neutrophils/100 WBC (Bld) 86.3 % Normal 40.0-80.0 [facility] Comment on above: Performed By: #### 5 7021-8 ####FLORINDA Monroe ([id number])[facility] ([facility])[address] [place] [address] Nucleated RBC/100 WBC (Bld) [Ratio] 0.0 /100 WBCs Normal 0.0-0.0 [facility] Comment on above: Performed By: #### 5 7021-8 ####FLORINDA Monroe ([id number])[facility] ([facility])[address] [place] [address] Platelets (Bld) [#/Vol] 76 x10*3/uL Low 150-450 [facility] Comment on above: Performed By: #### 5 7021-8 ####FLORINDA Monroe ([id number])[facility] ([facility])[address] [place] [address] RBC (Bld) [#/Vol] 2.39 x10*6/uL Low 4.50-5.90 [facility] Comment on above: Performed By: #### 5 7021-8 ####FLORINDA Monroe ([id number])[facility] ([facility])[address] [place] [address] WBC (Bld) [#/Vol] 9.5 x10*3/uL Normal 4.4-11.3 [facility] Comment on above: Performed By: #### 5 7021-8 ####FLORINDA Monroe ([id number])[facility] ([facility])[address] [place] [address] CBC panel Auto (Bld)on 05-25 Erythrocyte distribution width (RBC) [Ratio] 14.4 % Normal 11.5-14.5 [facility] Comment on above: Performed By: #### 5 8410-2 ####FLORINDA Monroe ([id number])[facility] ([facility])[address]38 [place] [address] Hematocrit (Bld) [Volume fraction] 25.0 % Low 41.0-52.0 [facility] Comment on above: Performed By: #### 5 8410-2 ####FLORINDA Monroe ([id number])[facility] ([facility])[address] [place] [address] Hemoglobin (Bld) [Mass/Vol] 7.8 g/dL Low 13.5-17.5 [facility] Comment on above: Performed By: #### 5 8410-2 ####FLORINDA Monroe ([id number])[facility] ([facility])[address] [place] [address] MCH (RBC) [Entitic mass] 28.1 pg Normal 26.0-34.0 [facility] Comment on above: Performed By: #### 5 8410-2 ####FLORINDA Monroe ([id number])[facility] ([facility])[address] [place] [address] MCHC (RBC) [Mass/Vol] 31.2 g/dL Low 32.0-36.0 [facility] Comment on above: Performed By: #### 5 8410-2 ####FLORINDA Monroe ([id number])[facility] ([facility])[address] [place] [address] MCV (RBC) [Entitic vol] 90 fL Normal 80-100 [facility] Comment on above: Performed By: #### 5 8410-2 ####FLORINDA Monroe ([id number])[facility] ([facility])[address] [place] [address] Nucleated RBC/100 WBC (Bld) [Ratio] 0.0 /100 WBCs Normal 0.0-0.0 [facility] Comment on above: Performed By: #### 5 8410-2 ####FLORINDA Monroe ([id number])[facility] ([facility])[address]504 [place] [address] Platelets (Bld) [#/Vol] 102 x10*3/uL Low 150-450 [facility] Comment on above: Performed By: #### 5 8410-2 ####FLORINDA Monroe ([id number])[facility] ([facility])[address] [place] [address] RBC (Bld) [#/Vol] 2.78 x10*6/uL Low 4.50-5.90 [facility] Comment on above: Performed By: #### 5 8410-2 ####FLORINDA Monroe ([id number])[facility] ([facility])[address] [place] [address] WBC (Bld) [#/Vol] 11.4 x10*3/uL High 4.4-11.3 [facility] Comment on above: Performed By: #### 5 8410-2 ####FLORINDA Monroe ([id number])[facility] ([facility])[address] [place] [address] [facility] MARIAN KOCH ([id number]) 1970 M Date Time Provider Department 05/25/24 MELISSA LAYNE [facility] During your visit today, we recorded the following information about you: Melissa Layne APRN.[employer] 05/25/2024 4:[address] of the abdomen and pelvis without contrast done May 19, 2024: Findings: Prominent calcified plaque in the posterior left lower hemithorax. There is a small left pleural effusion. There is an ill-defined nodule in the superior segment of the right lower lobe measuring 7 mm and has a nonspecific appearance. A follow-up CT in 6 months would be helpful. Please let patient know that there is a nonspecific right lower lobe pulmonary nodule measuring 7 mm in size. The radiologist is asking for a follow-up CT of the chest in 6 months. Should this be done through the [facility] or back through [place]? Up to him. Nikki Ramírez MA 05/26/2024 10:08 AM Addendum Pt discharged from [facility] hospital on 05/24/24. He was transferred to [facility]U. Currently still there. He will need hospital follow up when discharged. Nikki Ramírez MA May 25, 2024 4:57 PM Allergies As of Date: 05/25/2024 Noted Allergy Reaction BEE STING 02/20/2010 4 - Hives 7 - Swelling DARVOCET-N 100 (PROPOXYPHENE N-AC*02/20/2010 4 - Hives Date Reviewed: 03/31/2024 Reviewed by: Melissa Galan LPN - Fully Assessed Primary Visit Diagnosis:Pulmonary nodule [R91.1] Order(s):CT CHEST [facility] [[id number]] Order #: [id number] FUTURE Prescriptions as of 05/26/2024 - ferrous sulfate 325 mg (65 mg iron) EC tablet Take 1 tablet by mouth. - Cholecalciferol, Vitamin D3, 50 mcg (2,000 unit) cap Take 100 mcg by mouth. - furosemide (LASIX) 20 mg tablet Take 20 mg by mouth every 48 hours. - albuterol HFA (PROVENTIL HFA, VENTOLIN HFA) 90 mcg/actuation inhaler Inhale 2 Puffs as instructed every 6 hours as needed. - tacrolimus ER (ASTAGRAF XL) 1 mg capsule Take 1 capsule by mouth every 24 hours. 0.5mg daily - ipratropium-albuterol (DUONEB) 0.5 mg-3 mg(2.5 mg base)/3 mL nebu Inhale 3 mL as instructed every 6 hours as needed for wheezing/shortness of breath. - gabapentin (NEURONTIN) 300 mg capsule Take 1 capsule by mouth three times a day for 90 days. - omeprazole (PRILOSEC) 40 mg capsule Take 1 capsule by mouth once daily. - sulfamethoxazole-trimethopri m (BACTRIM) 400-80 mg per tablet Take 1 tablet by mouth every afternoon. - Fluorouracil 5 % cream - alendronate (FOSAMAX) 70 mg tablet Take 1 tablet by mouth one time a week. Take with a full glass of water, on an empty stomach; do NOT lie down for 30minutes. - atorvastatin (LIPITOR) 80 mg tablet Take 1 tablet by mouth daily at bedtime. - CARDURA XL 8 mg 24 hr tablet TAKE 1 TABLET BY MOUTH EVERY DAY WITH BREAKFAST - predniSONE (DELTASONE) 5 mg tablet Take 1 tablet by mouth once daily. - amLODIPine (NORVASC) 5 mg tablet Take 10 mg by mouth once daily. - carvedilol (COREG) 25 mg tablet Take 1 tablet by mouth twice daily with meals. - acetaminophen (TYLENOL) 500 mg tablet Take 500 mg by mouth every 8 hours as needed. - mycophenolate mofetil (CELLCEPT) 250 mg capsule Take 500 mg by mouth twice daily. - magnesium oxide 400 mg cap Take 1 capsule by mouth twice daily. - ASPIRIN 81 MG TAB Take one(1) tablet daily. Problem List As Of Date 05/25/2024 Noted Resolved Renal failure, chronic, stage 3 (moderate) [N18*02/20/2010 CAD (coronary artery disease) [I25.10] 02/20/2010 Dialysis patient [Z99.2] 02/20/2010 11/28/2012 DVT (deep venous thrombosis) ([facility]) [I82.409] 09/28/2010 VIC (obstructive sleep apnea) [G47.33] 08/04/2011 Depression [F32.A] 03/07/2012 H/O kidney transplant [Z94.0] 11/28/2012 GERD (gastroesophageal reflux disease) [K21.9] 03/05/2014 Chronic left-sided low back pain with left-side*06/21/2016 Bilateral leg pain [M79.604, M79.605] 11/28/2016 Iliotibial band syndrome [M76.30] 11/28/2016 Radiculopathy, lumbar region [M54.16] 11/28/2016 Claudication of both lower extremities (HCC) [I*08/22/2017 Neurogenic bladder [N31.9] 12/08/2017 Hyperparathyroidism (HCC) [E21.3] 12/08/2017 Hyperhomocysteinemia (HCC) [E72.11] 12/08/2017 Pulmonary nodules [R91.8] Renal stones [N20.0] RLQ abdominal pain [R10.31] 01/06/2018 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 Normal [facility] Comprehensive metabolic 2000 panelon 05-25-2024 Albumin BCP dye [Mass/Vol] 3.0 g/dL Low 3.4-5.0 [facility] Comment on above: Performed By: #### 2 4323-8 ####FLORINDA Monroe ([id number])[facility] ([facility])[address] [place] [address] ALP [Catalytic activity/Vol] 52 U/L Normal 33-120 [facility] Comment on above: Performed By: #### 2 4323-8 ####FLORINDA Monroe ([id number])[facility] ([facility])[address] [place] [address] ALT With P-5'-P [Catalytic activity/Vol] 21 U/L Normal 10-52 [facility] Comment on above: Result Comment: Karely ents treated with Sulfasalazine may generate falsely decreased results for ALT. Performed By: #### 2 4323-8 ####FLORINDA Monroe ([id number])[facility] ([facility])[address] [place] [address] Anion gap [Moles/Vol] 17 mmol/L Normal 10-20 [facility] Comment on above: Performed By: #### 2 4323-8 ####FLORINDA Monroe ([id number])[facility] ([facility])[address] [place] [address] AST With P-5'-P [Catalytic activity/Vol] 19 U/L Normal 9-39 [facility] Comment on above: Performed By: #### 2 4323-8 ####FLORINDA Monroe ([id number])[facility] ([facility])[address] [place] [address] Bilirubin [Mass/Vol] 0.5 mg/dL Normal 0.0-1.2 [facility] Comment on above: Performed By: #### 2 4323-8 ####FLORINDA Monroe ([id number])[facility] ([facility])[address] [place] [address] Calcium [Mass/Vol] 9.4 mg/dL Normal 8.6-10.6 [facility] Comment on above: Performed By: #### 2 4323-8 ####FLORINDA Monroe ([id number])[facility] ([facility])[address] [place] [address] Chloride [Moles/Vol] 106 mmol/L Normal 98-107 [facility] Comment on above: Performed By: #### 2 4323-8 ####FLORINDA Monroe ([id number])[facility] ([facility])[address] [place] [address] CO2 [Moles/Vol] 27 mmol/L Normal 21-32 [facility] Comment on above: Performed By: #### 2 4323-8 ####FLORINDA Monroe ([id number])[facility] ([facility])[address] [place] [address] Creatinine [Mass/Vol] 2.55 mg/dL High 0.50-1.30 [facility] Comment on above: Performed By: #### 2 4323-8 ####FLORINDA TARANGO L ([id number])[facility] ([facility])[address] [place] [address] Glomerular filtration rate/1.73 sq M.predicted 29 mL/min/1.73m*2 Low >60 [facility] Comment on above: Result Comment: Calc ulations of estimated GFR are performed using the 2020 CKD-EPI Study Refit equation without the race variable for the IDMS-Traceable creatinine methods.https://jasn.asnjournals.org/content/early//ASN. 5012529437 Performed By: #### 2 4323-8 ####FLORINDA TARANGO L ([id number])[facility] ([facility])[address] [place] [address] Glucose [Mass/Vol] 108 mg/dL High 74-99 [facility] Comment on above: Performed By: #### 2 4323-8 ####FLORINDA TARANGO L ([id number])[facility] ([facility])[address] [place] [address] Potassium [Moles/Vol] 3.7 mmol/L Normal 3.5-5.3 [facility] Comment on above: Performed By: #### 2 4323-8 ####FLORINDA HYDEMOTZER L ([id number])[facility] ([facility])[address] [place] [address] Protein [Mass/Vol] 4.8 g/dL Low 6.4-8.2 [facility] Comment on above: Performed By: #### 2 4323-8 ####FLORINDA HYDEMOTZER L ([id number])[facility] ([facility])[address] [place] [address] Sodium [Moles/Vol] 146 mmol/L High 136-145 [facility] Comment on above: Performed By: #### 2 4323-8 ####FLORINDA HYDEMOPRIETO L ([id number])[facility] ([facility])[address] [place] [address] Urea nitrogen [Mass/Vol] 74 mg/dL High 6-23 [facility] Comment on above: Performed By: #### 2 4323-8 ####FLORINDA Monroe ([id number])[facility] ([facility])[address] [place] [address] ECG 12-LEADon 05-25-2024 ECG 12-LEAD Ventricular Rate 95 Atrial Rate 105 QRS Duration 156 Q-T Interval 402 QTC Calculation(Bazett) 505 R Afton -68 T Afton 51 QRS Count 16 Q Onset 216 T Offset 417 QTC Fredericia 468 Diagnosis Atrial fibrillation Right bundle branch block Left anterior fascicular block Bifascicular block Abnormal ECG When compared with ECG of 24-MAY-2024 19:13, T wave inversion less evident in Anterior leads Confirmed by Omari Franco ([id number]) on 05/26/2024 8:51:32 AM Normal [facility] F5 gene p.Pvf695Nhe Molgen Q l (Bld/Tiss)on 05-25-2024 ELECTRONICALLY SIGNED BY Sandra Sandoval MD PhD [facility] Comment on above: Performed By: #### 2 1668-9 ####SUDHIR GARCIA ([id number]) [facility] ([facility])[address] [place] [address] FACTOR V LEIDEN INTERPRETATION SEE COMMENT [facility] Comment on above: Result Comment: INTE RPRETATIONHETEROZYGOUS result indicates the patient is heterozygous for Factor V Leiden (F5 R506Q, c.1601G>A) mutation. This is associated with activated protein C resistance and a 4 to 8 fold increased risk for venous thrombosis as compared to individuals without the mutation. Individuals found to have the F5 R506Q mutation should be counseled about secondary risk factors associated with venous thrombosis, as well the implications this test result may have for other family members.METHODOLOGYDNA was extracted from the specimen provided and analyzed using allele-specific TaqMan MGB probes following PCR. DISCLAIMERThis laboratory developed test was developed and its analytical performance characteristics have been determined by [facility]. This test has not been cleared or approved by the FDA; however, the FDA has determined that such approval is not necessary. The [facility] is CAP accredited and certified under the Clinical Laboratory Improvement Amendments of 1988 (CLIA-88) as qualified to perform high complexity testing. Performed By: #### 2 1668-9 ####SUDHIR GARCIA ([id number]) [facility] ([facility])[address] [place] [address] FACTOR V LEIDEN RESULT Heterozygous Abnormal Normal [facility] Comment on above: Performed By: #### 2 1668-9 ####SUDHIR GARCIA ([id number]) [facility] ([facility])[address] [place] [address] Ferritinon 05-25-2024 Ferritin [Mass/Vol] 859 ng/mL High 20-300 [facility] Comment on above: Performed By: #### 2 276-4 ####FLORINDA Monroe ([id number])[facility] ([facility])[address] [place] [address] Gas and Carbon monoxide and Electrolytes panel (BldA)on 05-25-2024 Anion gap 4 (BldA) [Moles/Vol] 11 mmo/L Normal 10-25 [facility] Comment on above: Performed By: #### 9 3685-6 ####FLORINDA Monroe ([id number])[facility] ([facility])[address] [place] [address] Base excess Calc (Bld) [Moles/Vol] 2.8 mmol/L Normal -2.0-3.0 [facility] Comment on above: Performed By: #### 9 3685-6 ####FLORINDA Monroe ([id number])[facility] ([facility])[address] [place] [address] Calcium.ionized (BldA) [Moles/Vol] 1.34 mmol/L High 1.10-1.33 [facility] Comment on above: Performed By: #### 9 3685-6 ####FLORINDA Monroe ([id number])[facility] ([facility])[address] [place] [address] Chloride (BldA) [Moles/Vol] 106 mmol/L Normal 98-107 [facility] Comment on above: Performed By: #### 9 3685-6 ####FLORINDA Monroe ([id number])[facility] ([facility])[address] [place] [address] CO2 (Bld) [Partial pressure] 40 mm Hg Normal 38-42 [facility] Comment on above: Performed By: #### 9 3685-6 ####FLORINDA Monroe ([id number])[facility] ([facility])[address] [place] [address] Glucose [Mass/Vol] 115 mg/dL High 74-99 [facility] Comment on above: Performed By: #### 9 3685-6 ####FLORINDA Monroe ([id number])[facility] ([facility])[address] [place] [address] HCO3 (Bld) [Moles/Vol] 27.2 mmol/L High 22.0-26.0 [facility] Comment on above: Performed By: #### 9 3685-6 ####FLORINDA Monroe ([id number])[facility] ([facility])[address] [place] [address] Hematocrit Est (Bld) [Volume fraction] 25.0 % Low 41.0-52.0 [facility] Comment on above: Performed By: #### 9 3685-6 ####FLORINDA Monroe ([id number])[facility] ([facility])[address] [place] [address] Hemoglobin (Bld) [Mass/Vol] 8.3 g/dL Low 13.5-17.5 [facility] Comment on above: Performed By: #### 9 3685-6 ####FLORINDA Monroe ([id number])[facility] ([facility])[address] [place] [address] Inhaled oxygen concentration 21 % Normal [facility] Comment on above: Performed By: #### 9 3685-6 ####FLORINDA Monroe ([id number])[facility] ([facility])[address] [place] [address] Lactate (BldA) [Moles/Vol] 0.6 mmol/L Normal 0.4-2.0 [facility] Comment on above: Performed By: #### 9 3685-6 ####FLORINDA Monroe ([id number])[facility] ([facility])[address] [place] [address] Oxygen (Bld) [Partial pressure] 71 mm Hg Low 85-95 [facility] Comment on above: Performed By: #### 9 3685-6 ####FLORINDA Monroe ([id number])[facility] ([facility])[address] [place] [address] Oxyhemoglobin (BldA) [Mass fraction] 94.1 % Normal 94.0-98.0 [facility] Comment on above: Performed By: #### 9 3685-6 ####FLORINDA Monroe ([id number])[facility] ([facility])[address] [place] [address] pH (Bld) 7.44 [pH] High 7.38-7.42 [facility] Comment on above: Performed By: #### 9 3685-6 ####FLORINDA Monroe ([id number])[facility] ([facility])[address] [place] [address] Potassium (BldA) [Moles/Vol] 3.6 mmol/L Normal 3.5-5.3 [facility] Comment on above: Performed By: #### 9 3685-6 ####FLORINDA Monroe ([id number])[facility] ([facility])[address] [place] [address] Sodium (BldA) [Moles/Vol] 141 mmol/L Normal 136-145 [facility] Comment on above: Performed By: #### 9 3685-6 ####FLORINDA Monroe ([id number])[facility] ([facility])[address] [place] [address] Heparin.unfractionatedon Heparin unfractionated Chromogenic method Qn (PPP) 0.4 IU/mL Normal See Comment Below for Therapeutic Ranges [facility] Comment on above: Order Comment: Obtai n 4 hours after any Heparin dosage change. Nursing to release order.The therapeutic reference range for UFH may be either 0.3-0.6 IU/mL or 0.3-0.7 IU/mL based on the clinical setting for anticoagulant therapy and the associated nomogram used. For Heparin dosing guidelines based on clinical scenario and Heparin Assay results, please refer to local Pharmacy and the [facility] Guidelines for Anticoagulation Therapy available on the [facility] intranet at: [email or web address] Performed By: #### 3 274-8 ####FLORINDA Monroe ([id number])[facility] ([facility])[address] [place] [address] Iron and Iron binding capaci ty panelon 05-25-2024 Iron [Mass/Vol] 56 ug/dL Normal 35-150 [facility] Comment on above: Performed By: #### 5 0190-8 ####FLORINDA WESTONTZER L ([id number])[facility] ([facility])[address] [place] [address] Iron binding capacity [Mass/Vol] 213 ug/dL Low 240-445 [facility] Comment on above: Performed By: #### 5 0190-8 ####FLORINDA HYDEMOTZER L ([id number])[facility] ([facility])[address] [place] [address] Iron binding capacity.unsaturate d [Mass/Vol] 157 ug/dL Normal 110-370 [facility] Comment on above: Performed By: #### 5 0190-8 ####FLOIRNDA HYDEMOTZER L ([id number])[facility] ([facility])[address] [place] [address] Iron saturation [Mass fraction] 26 % Normal 25-45 [facility] Comment on above: Performed By: #### 5 0190-8 ####FLORINDA WESTONTZEMA L ([id number])[facility] ([facility])[address] [place] [address] Magnesiumon 05-25-2024 Magnesium [Mass/Vol] 2.47 mg/dL High 1.60-2.40 [facility] Comment on above: Performed By: #### 1 9123-9 ####FLORINDA Monroe ([id number])[facility] ([facility])[address] [place] [address] PATH REVIEW-IMMUNOHEMATOLOGY on 05-25-2024 PATH REV-IMMUNOHEMATOLOG Y-PR30 SEE COMMENT Normal [facility] Comment on above: Result Comment: ANTI BODY DETECTION SCREEN IS POSITIVE. ANTIBODY PANEL WAS PERFORMED.THE AUTOCONTROL IS NEGATIVE.ANTI-D IS IDENTIFIED.THE PATIENT'S RBC PHENOTYPE IS RH (D)-ANTIGEN NEGATIVE.ALL OTHER COMMON CLINICALLY SIGNIFICANT ALLOANTIBODIES HAVE BEEN RULED OUT.FULL CROSSMATCHED RH (D)-ANTIGEN NEGATIVE DONOR RBC UNITS SHOULD BE SELECTED FOR TRANSFUSION FOR THIS PATIENT. .By the signature on this report, the individual or group listed as making the Final Interpretation/Diagnosis certifies that they have reviewed this case. Performed By: #### P R30 ####FLORINDA Monroe ([id number])[facility] ([facility])[id number] [place] [address] Renal function 2000 panelon 05-25-2024 Albumin BCP dye [Mass/Vol] 2.7 g/dL Low 3.4-5.0 [facility] Comment on above: Performed By: #### 2 4362-6 ####FLORINDA Monroe ([id number])[facility] ([facility])[address] [place] [address] Anion gap [Moles/Vol] 13 mmol/L Normal - [facility] Comment on above: Performed By: #### 2 4362-6 ####FLORINDA Monroe ([id number])[facility] ([facility])[address] [place] [address] Calcium [Mass/Vol] 8.8 mg/dL Normal 8.6-10.6 [facility] Comment on above: Performed By: #### 2 4362-6 ####FLORINDA Monroe ([id number])[facility] ([facility])[address] [place] [address] Chloride [Moles/Vol] 105 mmol/L Normal 98-107 [facility] Comment on above: Performed By: #### 2 4362-6 ####FLORINDA Monroe ([id number])[facility] ([facility])[address] [place] [address] CO2 [Moles/Vol] 29 mmol/L Normal 21-32 [facility] Comment on above: Performed By: #### 2 4362-6 ####FLORINDA Monroe ([id number])[facility] ([facility])[address] [place] [address] Creatinine [Mass/Vol] 2.52 mg/dL High 0.50-1.30 [facility] Comment on above: Performed By: #### 2 4362-6 ####FLORINDA Monroe ([id number])[facility] ([facility])[address] [place] [address] Glomerular filtration rate/1.73 sq M.predicted 29 mL/min/1.73m*2 Low >60 [facility] Comment on above: Result Comment: Calc ulations of estimated GFR are performed using the 2020 CKD-EPI Study Refit equation without the race variable for the IDMS-Traceable creatinine methods.https://jasn.asnjournals.org/content//ASN. 8982665768 Performed By: #### 2 4362-6 ####FLORINDA Monroe ([id number])[facility] ([facility])[address] [place] [address] Glucose [Mass/Vol] 139 mg/dL High 74-99 [facility] Comment on above: Performed By: #### 2 4362-6 ####FLORINDA Monroe ([id number])[facility] ([facility])[address] [place] [address] Phosphate [Mass/Vol] 5.9 mg/dL High 2.5-4.9 [facility] Comment on above: Result Comment: The performance characteristics of phosphorus testing in heparinized plasma have been validated by the individual laboratory site where testing is performed. Testing on heparinized plasma is not approved by the FDA; however, such approval is not necessary. Performed By: #### 2 4362-6 ####FLORINDA Monroe ([id number])[facility] ([facility])[address] [place] [address] Potassium [Moles/Vol] 3.9 mmol/L Normal 3.5-5.3 [facility] Comment on above: Performed By: #### 2 4362-6 ####FLORINDA Monroe ([id number])[facility] ([facility])[address] [place] [address] Sodium [Moles/Vol] 143 mmol/L Normal 136-145 [facility] Comment on above: Performed By: #### 2 4362-6 ####FLORINDA Monroe ([id number])[facility] ([facility])[address] [place] [address] Urea nitrogen [Mass/Vol] 77 mg/dL High 6-23 [facility] Comment on above: Performed By: #### 2 4362-6 ####FLORINDA Monroe ([id number])[facility] ([facility])[address] [place] [address] Tacrolimuson 05-25-2024 Tacrolimus (Bld) [Mass/Vol] 5.0 ng/mL Normal <=15.0 [facility] Comment on above: Order Comment: NOTE: Result was obtained using achemiluminescent microparticle immunoassay(CMIA) on the [employer] i system.Optimal therapeutic ranges for immunosuppressantdrugs depend upon an individualpatient's current clinical state, type oforgan transplant, time post-transplant,co-administration of other immunosuppressants,and other clinical factors. The results ofthis test should be correlated with additionalclinical and laboratory data before changesin treatment regimens are made. Performed By: #### 1 6353-2 ####FLORINDA Monroe ([id number])[facility] ([facility])[address] [place] [address] Troponin I.cardiac panelon 0 05-25-2024 Tropinin I.cardiac panel High sensitivity method 1564 ng/L Critically high 0-53 [facility] Comment on above: Order Comment: Less than 99th percentile of normal range cutoff-Female and children under 18 years old <35 ng/L; Male <54 ng/L: NegativeRepeat testing should be performed if clinically indicated.Female and children under 18 years old 35-120 ng/L; Male 54-120 ng/L:Consistent with possible cardiac damage and possible increased clinicalrisk. Serial measurements may help to assess extent of myocardial damage.>120 ng/L: Consistent with cardiac damage, increased clinical risk andmyocardial infarction. Serial measurements may help assess extent ofmyocardial damage.NOTE: Children less than 1 year old may have higher baseline troponinlevels and results should be interpreted in conjunction with the overallclinical context.NOTE: Troponin I testing is performed using a differenttesting methodology at [facility] than at [facility]. Direct result comparisons should onlybe made within the same method. Performed By: #### 8 9577-1 ####FLORINDA Monroe ([id number])[facility] ([facility])[address] [place] [address] Tropinin I.cardiac panel High sensitivity method 2121 ng/L Critically high 0-53 [facility] Comment on above: Order Comment: Less than 99th percentile of normal range cutoff-Female and children under 18 years old <35 ng/L; Male <54 ng/L: NegativeRepeat testing should be performed if clinically indicated.Female and children under 18 years old 35-120 ng/L; Male 54-120 ng/L:Consistent with possible cardiac damage and possible increased clinicalrisk. Serial measurements may help to assess extent of myocardial damage.>120 ng/L: Consistent with cardiac damage, increased clinical risk andmyocardial infarction. Serial measurements may help assess extent ofmyocardial damage.NOTE: Children less than 1 year old may have higher baseline troponinlevels and results should be interpreted in conjunction with the overallclinical context.NOTE: Troponin I testing is performed using a differenttesting methodology at [facility] than at [facility]. Direct result comparisons should onlybe made within the same method. Result Comment: Prev ious result verified on 05/24/20241802 on specimen/case [id number] called with component TRP for procedure Troponin I, High Sensitivity with value 2,016 ng/L. Performed By: #### 8 9577-1 ####FLORINDA Monroe ([id number])[facility] ([facility])[address] [place] [address] Tropinin I.cardiac panel High sensitivity method 2007 ng/L Critically high 0-53 [facility] Comment on above: Order Comment: Less than 99th percentile of normal range cutoff-Female and children under 18 years old <35 ng/L; Male <54 ng/L: NegativeRepeat testing should be performed if clinically indicated.Female and children under 18 years old 35-120 ng/L; Male 54-120 ng/L:Consistent with possible cardiac damage and possible increased clinicalrisk. Serial measurements may help to assess extent of myocardial damage.>120 ng/L: Consistent with cardiac damage, increased clinical risk andmyocardial infarction. Serial measurements may help assess extent ofmyocardial damage.NOTE: Children less than 1 year old may have higher baseline troponinlevels and results should be interpreted in conjunction with the overallclinical context.NOTE: Troponin I testing is performed using a differenttesting methodology at [facility] than at [facility]. Direct result comparisons should onlybe made within the same method. Result Comment: Prev ious result verified on 05/24/20241802 on specimen/case [id number] called with component TRP for procedure Troponin I, High Sensitivity with value 2,016 ng/L. Performed By: #### 8 9577-1 ####FLORINDA Monroe ([id number])[facility] ([facility])[address] [place] [address] Tropinin I.cardiac panel High sensitivity method 2014 ng/L Critically high 0-53 [facility] Comment on above: Order Comment: Less than 99th percentile of normal range cutoff-Female and children under 18 years old <35 ng/L; Male <54 ng/L: NegativeRepeat testing should be performed if clinically indicated.Female and children under 18 years old 35-120 ng/L; Male 54-120 ng/L:Consistent with possible cardiac damage and possible increased clinicalrisk. Serial measurements may help to assess extent of myocardial damage.>120 ng/L: Consistent with cardiac damage, increased clinical risk andmyocardial infarction. Serial measurements may help assess extent ofmyocardial damage.NOTE: Children less than 1 year old may have higher baseline troponinlevels and results should be interpreted in conjunction with the overallclinical context.NOTE: Troponin I testing is performed using a differenttesting methodology at [facility] than at [facility]. Direct result comparisons should onlybe made within the same method. Result Comment: Prev ious result verified on 05/24/20241802 on specimen/case [id number] called with component [facility] for procedure Troponin I, High Sensitivity with value 2,016 ng/L. Performed By: #### 8 9577-1 ####FLORINDA Monroe ([id number])[facility] ([facility])[address] [place] [address] Bilirubin.glucuronidated+Steve irubin.albumin boundon 05-24-2024 Bilirubin.direct [Mass/Vol] 0.1 mg/dL Normal 0.0-0.3 [facility] Comment on above: Performed By: #### 1 968-7 ####FLORINDA Monroe ([id number])[facility] ([facility])[address] [place] [address] CBC W Auto Differential pane l (Bld)on 05-24-2024 Erythrocyte distribution width (RBC) [Ratio] 13.5 % Normal 11.5-14.5 [facility] Comment on above: Order Comment: The p reviously reported component Neutrophils % is no longer being reported.The previously reported component Lymphocytes % is no longer being reported.The previously reported component Monocytes % is no longer being reported.The previously reported component Eosinophils % is no longer being reported.The previously reported component Basophils % is no longer being reported.The previously reported component Absolute Neutrophils is no longer being reported.The previously reported component Absolute Lymphocytes is no longer being reported.The previously reported component Absolute Monocytes is no longer being reported.The previously reported component Absolute Eosinophils is no longer being reported.The previously reported component Absolute Basophils is no longer being reported. Performed By: #### 5 7021-8 ####FLORINDA Monroe ([id number])[facility] ([facility])[id number] [place] [address] Hematocrit (Bld) [Volume fraction] 24.4 % Low 41.0-52.0 [facility] Comment on above: Order Comment: The p reviously reported component Neutrophils % is no longer being reported.The previously reported component Lymphocytes % is no longer being reported.The previously reported component Monocytes % is no longer being reported.The previously reported component Eosinophils % is no longer being reported.The previously reported component Basophils % is no longer being reported.The previously reported component Absolute Neutrophils is no longer being reported.The previously reported component Absolute Lymphocytes is no longer being reported.The previously reported component Absolute Monocytes is no longer being reported.The previously reported component Absolute Eosinophils is no longer being reported.The previously reported component Absolute Basophils is no longer being reported. Performed By: #### 5 7021-8 ####FLORINDA Monroe ([id number])[facility] ([facility])[address] [place] [address] Hemoglobin (Bld) [Mass/Vol] 7.8 g/dL Low 13.5-17.5 [facility] Comment on above: Order Comment: The p reviously reported component Neutrophils % is no longer being reported.The previously reported component Lymphocytes % is no longer being reported.The previously reported component Monocytes % is no longer being reported.The previously reported component Eosinophils % is no longer being reported.The previously reported component Basophils % is no longer being reported.The previously reported component Absolute Neutrophils is no longer being reported.The previously reported component Absolute Lymphocytes is no longer being reported.The previously reported component Absolute Monocytes is no longer being reported.The previously reported component Absolute Eosinophils is no longer being reported.The previously reported component Absolute Basophils is no longer being reported. Performed By: #### 5 7021-8 ####FLORINDA Monroe ([id number])[facility] ([facility])[address] [place] [address] Immature granulocytes (Bld) [#/Vol] 0.08 x10*3/uL Normal 0.00-0.70 [facility] Comment on above: Order Comment: The p reviously reported component Neutrophils % is no longer being reported.The previously reported component Lymphocytes % is no longer being reported.The previously reported component Monocytes % is no longer being reported.The previously reported component Eosinophils % is no longer being reported.The previously reported component Basophils % is no longer being reported.The previously reported component Absolute Neutrophils is no longer being reported.The previously reported component Absolute Lymphocytes is no longer being reported.The previously reported component Absolute Monocytes is no longer being reported.The previously reported component Absolute Eosinophils is no longer being reported.The previously reported component Absolute Basophils is no longer being reported. Performed By: #### 5 7021-8 ####FLORINDA Monroe ([id number])[facility] ([facility])[address] [place] [address] Immature granulocytes/100 WBC (Bld) 0.7 % Normal 0.0-0.9 [facility] Comment on above: Order Comment: The p reviously reported component Neutrophils % is no longer being reported.The previously reported component Lymphocytes % is no longer being reported.The previously reported component Monocytes % is no longer being reported.The previously reported component Eosinophils % is no longer being reported.The previously reported component Basophils % is no longer being reported.The previously reported component Absolute Neutrophils is no longer being reported.The previously reported component Absolute Lymphocytes is no longer being reported.The previously reported component Absolute Monocytes is no longer being reported.The previously reported component Absolute Eosinophils is no longer being reported.The previously reported component Absolute Basophils is no longer being reported. Result Comment: Nathaly ture Granulocyte Count (IG) includes promyelocytes, myelocytes and metamyelocytes but does not include bands. Percent differential counts (%) should be interpreted in the context of the absolute cell counts (cells/UL). Performed By: #### 5 7021-8 ####FLORINDA Monroe ([id number])[facility] ([facility])[address] [place] [address] MCH (RBC) [Entitic mass] 28.5 pg Normal 26.0-34.0 [facility] Comment on above: Order Comment: The p reviously reported component Neutrophils % is no longer being reported.The previously reported component Lymphocytes % is no longer being reported.The previously reported component Monocytes % is no longer being reported.The previously reported component Eosinophils % is no longer being reported.The previously reported component Basophils % is no longer being reported.The previously reported component Absolute Neutrophils is no longer being reported.The previously reported component Absolute Lymphocytes is no longer being reported.The previously reported component Absolute Monocytes is no longer being reported.The previously reported component Absolute Eosinophils is no longer being reported.The previously reported component Absolute Basophils is no longer being reported. Performed By: #### 5 7021-8 ####FLORINDA Monroe ([id number])[facility] ([facility])[address] [place] [address] MCHC (RBC) [Mass/Vol] 32.0 g/dL Normal 32.0-36.0 [facility] Comment on above: Order Comment: The p reviously reported component Neutrophils % is no longer being reported.The previously reported component Lymphocytes % is no longer being reported.The previously reported component Monocytes % is no longer being reported.The previously reported component Eosinophils % is no longer being reported.The previously reported component Basophils % is no longer being reported.The previously reported component Absolute Neutrophils is no longer being reported.The previously reported component Absolute Lymphocytes is no longer being reported.The previously reported component Absolute Monocytes is no longer being reported.The previously reported component Absolute Eosinophils is no longer being reported.The previously reported component Absolute Basophils is no longer being reported. Performed By: #### 5 7021-8 ####FLORINDA HYDEMOTZER L ([id number])[facility] ([facility])[address] [place] [address] MCV (RBC) [Entitic vol] 89 fL Normal 80-100 [facility] Comment on above: Order Comment: The p reviously reported component Neutrophils % is no longer being reported.The previously reported component Lymphocytes % is no longer being reported.The previously reported component Monocytes % is no longer being reported.The previously reported component Eosinophils % is no longer being reported.The previously reported component Basophils % is no longer being reported.The previously reported component Absolute Neutrophils is no longer being reported.The previously reported component Absolute Lymphocytes is no longer being reported.The previously reported component Absolute Monocytes is no longer being reported.The previously reported component Absolute Eosinophils is no longer being reported.The previously reported component Absolute Basophils is no longer being reported. Performed By: #### 5 7021-8 ####FLORINDA Monroe ([id number])[facility] ([facility])[address] [place] [address] Nucleated RBC/100 WBC (Bld) [Ratio] 0.0 /100 WBCs Normal 0.0-0.0 [facility] Comment on above: Order Comment: The p reviously reported component Neutrophils % is no longer being reported.The previously reported component Lymphocytes % is no longer being reported.The previously reported component Monocytes % is no longer being reported.The previously reported component Eosinophils % is no longer being reported.The previously reported component Basophils % is no longer being reported.The previously reported component Absolute Neutrophils is no longer being reported.The previously reported component Absolute Lymphocytes is no longer being reported.The previously reported component Absolute Monocytes is no longer being reported.The previously reported component Absolute Eosinophils is no longer being reported.The previously reported component Absolute Basophils is no longer being reported. Performed By: #### 5 7021-8 ####FLORINDA Monroe ([id number])[facility] ([facility])[address] [place] [address] Platelets (Bld) [#/Vol] 79 x10*3/uL Low 150-450 [facility] Comment on above: Order Comment: The p reviously reported component Neutrophils % is no longer being reported.The previously reported component Lymphocytes % is no longer being reported.The previously reported component Monocytes % is no longer being reported.The previously reported component Eosinophils % is no longer being reported.The previously reported component Basophils % is no longer being reported.The previously reported component Absolute Neutrophils is no longer being reported.The previously reported component Absolute Lymphocytes is no longer being reported.The previously reported component Absolute Monocytes is no longer being reported.The previously reported component Absolute Eosinophils is no longer being reported.The previously reported component Absolute Basophils is no longer being reported. Performed By: #### 5 7021-8 ####FLORINDA Monroe ([id number])[facility] ([facility])[address] [place] [address] RBC (Bld) [#/Vol] 2.74 x10*6/uL Low 4.50-5.90 [facility] Comment on above: Order Comment: The p reviously reported component Neutrophils % is no longer being reported.The previously reported component Lymphocytes % is no longer being reported.The previously reported component Monocytes % is no longer being reported.The previously reported component Eosinophils % is no longer being reported.The previously reported component Basophils % is no longer being reported.The previously reported component Absolute Neutrophils is no longer being reported.The previously reported component Absolute Lymphocytes is no longer being reported.The previously reported component Absolute Monocytes is no longer being reported.The previously reported component Absolute Eosinophils is no longer being reported.The previously reported component Absolute Basophils is no longer being reported. Performed By: #### 5 7021-8 ####FLORINDA Monroe ([id number])[facility] ([facility])[address] [place] [address] WBC (Bld) [#/Vol] 11.2 x10*3/uL Normal 4.4-11.3 [facility] Comment on above: Order Comment: The p reviously reported component Neutrophils % is no longer being reported.The previously reported component Lymphocytes % is no longer being reported.The previously reported component Monocytes % is no longer being reported.The previously reported component Eosinophils % is no longer being reported.The previously reported component Basophils % is no longer being reported.The previously reported component Absolute Neutrophils is no longer being reported.The previously reported component Absolute Lymphocytes is no longer being reported.The previously reported component Absolute Monocytes is no longer being reported.The previously reported component Absolute Eosinophils is no longer being reported.The previously reported component Absolute Basophils is no longer being reported. Performed By: #### 5 7021-8 ####FLORINDA TARANGO L ([id number])[facility] ([facility])[address] [place] [address] Comprehensive metabolic 2000 panelon 05-24-2024 Albumin BCP dye [Mass/Vol] 3.1 g/dL Low 3.4-5.0 [facility] Comment on above: Performed By: #### 2 4323-8 ####FLORINDA HYDEMOTZER L ([id number])[facility] ([facility])[address] [place] [address] ALP [Catalytic activity/Vol] 55 U/L Normal 33-120 [facility] Comment on above: Performed By: #### 2 4323-8 ####FLORINDA Monroe ([id number])[facility] ([facility])[address] [place] [address] ALT With P-5'-P [Catalytic activity/Vol] 24 U/L Normal 10-52 [facility] Comment on above: Result Comment: Karely ents treated with Sulfasalazine may generate falsely decreased results for ALT. Performed By: #### 2 4323-8 ####FLORINDA TARANGO L ([id number])[facility] ([facility])[address] [place] [address] Anion gap [Moles/Vol] 15 mmol/L Normal 10-20 [facility] Comment on above: Performed By: #### 2 4323-8 ####FLORINDA Monroe ([id number])[facility] ([facility])[address] [place] [address] AST With P-5'-P [Catalytic activity/Vol] 24 U/L Normal 9-39 [facility] Comment on above: Performed By: #### 2 4323-8 ####FLORINDA Monroe ([id number])[facility] ([facility])[address] [place] [address] Bilirubin [Mass/Vol] 0.5 mg/dL Normal 0.0-1.2 [facility] Comment on above: Performed By: #### 2 4323-8 ####FLORINDA TARANGO L ([id number])[facility] ([facility])[address] [place] [address] Calcium [Mass/Vol] 9.0 mg/dL Normal 8.6-10.6 [facility] Comment on above: Performed By: #### 2 4323-8 ####FLORINDA TARANGO L ([id number])[facility] ([facility])[address] [place] [address] Chloride [Moles/Vol] 105 mmol/L Normal 98-107 [facility] Comment on above: Performed By: #### 2 4323-8 ####FLORINDA Monroe ([id number])[facility] ([facility])[address] [place] [address] CO2 [Moles/Vol] 27 mmol/L Normal 21-32 [facility] Comment on above: Performed By: #### 2 4323-8 ####FLORINDA Monroe ([id number])[facility] ([facility])[address] [place] [address] Creatinine [Mass/Vol] 2.53 mg/dL High 0.50-1.30 [facility] Comment on above: Performed By: #### 2 4323-8 ####FLORINDA Monroe ([id number])[facility] ([facility])[address] [place] [address] Glomerular filtration rate/1.73 sq M.predicted 29 mL/min/1.73m*2 Low >60 [facility] Comment on above: Result Comment: Calc ulations of estimated GFR are performed using the 2020 CKD-EPI Study Refit equation without the race variable for the IDMS-Traceable creatinine methods.https://jasn.asnjournals.org/content///ASN. 0275932873 Performed By: #### 2 4323-8 ####FLORINDA Monroe ([id number])[facility] ([facility])[address] [place] [address] Glucose [Mass/Vol] 161 mg/dL High 74-99 [facility] Comment on above: Performed By: #### 2 4323-8 ####FLORINDA Monroe ([id number])[facility] ([facility])[address] [place] [address] Potassium [Moles/Vol] 4.0 mmol/L Normal 3.5-5.3 [facility] Comment on above: Performed By: #### 2 4323-8 ####FLORINDA Monroe ([id number])[facility] ([facility])[address] [place] [address] Protein [Mass/Vol] 4.7 g/dL Low 6.4-8.2 [facility] Comment on above: Performed By: #### 2 4323-8 ####FLORINDA Monroe ([id number])[facility] ([facility])[address] [place] [address] Sodium [Moles/Vol] 143 mmol/L Normal 136-145 [facility] Comment on above: Performed By: #### 2 4323-8 ####FLORINDA Monroe ([id number])[facility] ([facility])[address] [place] [address] Urea nitrogen [Mass/Vol] 75 mg/dL High 6-23 [facility] Comment on above: Performed By: #### 2 4323-8 ####FLORINDA Monroe ([id number])[facility] ([facility])[address] [place] [address] ECG 12-LEADon 05-24-2024 ECG 12-LEAD Ventricular Rate 95 Atrial Rate 88 QRS Duration 156 Q-T Interval 402 QTC Calculation(Bazett) 505 R Afton -71 T Afton 65 QRS Count 16 Q Onset 218 T Offset 419 QTC Fredericia 468 Diagnosis Atrial fibrillation Right bundle branch block Left anterior fascicular block Bifascicular block Abnormal ECG When compared with ECG of 24-MAY-2024 14:18, T wave inversion more evident in Anterior leads Confirmed by Thal Omari ([id number]) on 05/25/2024 10:19:30 AM Normal [facility] ECG 12-LEAD Ventricular Rate 72 Atrial Rate 74 QRS Duration 162 Q-T Interval 476 QTC Calculation(Bazett) 521 R Afton -56 T Afton 64 QRS Count 12 Q Onset 214 T Offset 452 QTC Fredericia 506 Diagnosis Atrial fibrillation with premature ventricular or aberrantly conducted complexes Right bundle branch block Left anterior fascicular block Bifascicular block Abnormal ECG When compared with ECG of 19-MAR-2010 03:15, Atrial fibrillation has replaced Sinus rhythm (RBBB and left anterior fascicular block) is now Present Confirmed by Thal Omari ([id number]) on 05/25/2024 10:15:17 AM Normal [facility] Gas and Carbon monoxide and Electrolytes panel (BldA)on 05-24-2024 Anion gap 4 (BldA) [Moles/Vol] 12 mmo/L Normal 10-25 [facility] Comment on above: Performed By: #### 9 3685-6 ####FLORINDA Monroe ([id number])[facility] ([facility])[address] [place] [address] Base excess Calc (Bld) [Moles/Vol] 2.5 mmol/L Normal -2.0-3.0 [facility] Comment on above: Performed By: #### 9 3685-6 ####FLORINDA Monroe ([id number])[facility] ([facility])[address] [place] [address] Calcium.ionized (BldA) [Moles/Vol] 1.29 mmol/L Normal 1.10-1.33 [facility] Comment on above: Performed By: #### 9 3685-6 ####FLORINDA Monroe ([id number])[facility] ([facility])[address] [place] [address] Chloride (BldA) [Moles/Vol] 106 mmol/L Normal 98-107 [facility] Comment on above: Performed By: #### 9 3685-6 ####FLORINDA Monroe ([id number])[facility] ([facility])[address] [place] [address] CO2 (Bld) [Partial pressure] 42 mm Hg Normal 38-42 [facility] Comment on above: Performed By: #### 9 3685-6 ####FLORINDA Monroe ([id number])[facility] ([facility])[address] [place] [address] Glucose [Mass/Vol] 144 mg/dL High 74-99 [facility] Comment on above: Performed By: #### 9 3685-6 ####FLORINDA Monroe ([id number])[facility] ([facility])[address] [place] [address] HCO3 (Bld) [Moles/Vol] 27.2 mmol/L High 22.0-26.0 [facility] Comment on above: Performed By: #### 9 3685-6 ####FLORINDA Monroe ([id number])[facility] ([facility])[address] [place] [address] Hematocrit Est (Bld) [Volume fraction] 25.0 % Low 41.0-52.0 [facility] Comment on above: Performed By: #### 9 4285-6 ####FLORINDA Monroe ([id number])[facility] ([facility])[address] [place] [address] Hemoglobin (Bld) [Mass/Vol] 8.2 g/dL Low 13.5-17.5 [facility] Comment on above: Performed By: #### 9 3685-6 ####FLORINDA Monroe ([id number])[facility] ([facility])[address] [place] [address] Inhaled oxygen concentration 28 % Normal [facility] Comment on above: Performed By: #### 9 8345-6 ####FLORINDA Monroe ([id number])[facility] ([facility])[address] [place] [address] Lactate (BldA) [Moles/Vol] 0.8 mmol/L Normal 0.4-2.0 [facility] Comment on above: Performed By: #### 9 3725-6 ####FLORINDA Monroe ([id number])[facility] ([facility])[address] [place] [address] Oxygen (Bld) [Partial pressure] 111 mm Hg High 85-95 [facility] Comment on above: Performed By: #### 9 2366-6 ####FLORINDA Monroe ([id number])[facility] ([facility])[address] [place] [address] Oxyhemoglobin (BldA) [Mass fraction] 97.4 % Normal 94.0-98.0 [facility] Comment on above: Performed By: #### 9 3013-6 ####FLORINDA Monroe ([id number])[facility] ([facility])[address] [place] [address] pH (Bld) 7.42 [pH] Normal 7.38-7.42 [facility] Comment on above: Performed By: #### 9 3685-6 ####FLORINDA Monroe ([id number])[facility] ([facility])[address] [place] [address] Potassium (BldA) [Moles/Vol] 3.7 mmol/L Normal 3.5-5.3 [facility] Comment on above: Performed By: #### 9 3685-6 ####FLORINDA Monroe ([id number])[facility] ([facility])[address] [place] [address] Sodium (BldA) [Moles/Vol] 141 mmol/L Normal 136-145 [facility] Comment on above: Performed By: #### 9 3685-6 ####FLORINDA Monroe ([id number])[facility] ([facility])[address] [place] [address] HbA1c (Bld) [Mass fraction]o n 05-24-2024 Average glucose Estimated from glycated hemoglobin (Bld) [Mass/Vol] 114 mg/dL Normal Not Established [facility] Comment on above: Order Comment: Diagn osis of Jfcadnsa-RvabkxFhg-Jthduwap: < or = 5.6%Increased risk for developing diabetes: 5.7-6.4%Diagnostic of diabetes: > or = 6.5% Performed By: #### 4 548-4 ####FLORINDA Monroe ([id number])[facility] ([facility])[address] [place] [address] Hemoglobin A1c/Hemoglobin.to christian 05-24-2024 HbA1c (Bld) [Mass fraction] 5.6 % Normal see below [facility] Comment on above: Order Comment: Diagn osis of Njwpcguk-TlbwiyTqp-Hbcvodum: < or = 5.6%Increased risk for developing diabetes: 5.7-6.4%Diagnostic of diabetes: > or = 6.5% Performed By: #### 4 548-4 ####FLORINDA Monroe ([id number])[facility] ([facility])[address] [place] [address] Heparin.unfractionatedon Heparin unfractionated Chromogenic method Qn (PPP) 0.4 IU/mL Normal See Comment Below for Therapeutic Ranges [facility] Comment on above: Order Comment: Obtai n 4 hours after any Heparin dosage change. Nursing to release order.The therapeutic reference range for UFH may be either 0.3-0.6 IU/mL or 0.3-0.7 IU/mL based on the clinical setting for anticoagulant therapy and the associated nomogram used. For Heparin dosing guidelines based on clinical scenario and Heparin Assay results, please refer to local Pharmacy and the [facility] Guidelines for Anticoagulation Therapy available on the [facility] intranet at: [email or web address] [email or web address] Performed By: #### 3 274-8 ####FLORINDA Monroe ([id number])[facility] ([facility])[address] [place] [address] Heparin unfractionated Chromogenic method Qn (PPP) 0.2 IU/mL Normal See Comment Below for Therapeutic Ranges [facility] Comment on above: Order Comment: The t herapeutic reference range for UFH may be either 0.3-0.6 IU/mL or 0.3-0.7 IU/mL based on the clinical setting for anticoagulant therapy and the associated nomogram used. For Heparin dosing guidelines based on clinical scenario and Heparin Assay results, please refer to local Pharmacy and the [facility] Guidelines for Anticoagulation Therapy available on the [facility] intranet at: [email or web address] [email or web address] Performed By: #### 3 274-8 ####FLORINDA Monroe ([id number])[facility] ([facility])[address] [place] [address] Lactateon 05-24-2024 Lactate [Moles/Vol] 1.1 mmol/L Normal 0.4-2.0 [facility] Comment on above: Order Comment: Venip uncture immediately after or during the administration of Metamizole may lead to falsely low results. Testing should be performed immediatelyprior to Metamizole dosing. Performed By: #### 2 524-7 ####FLORINDA Monroe ([id number])[facility] ([facility])[address] [place] [address] Magnesiumon 05-24-2024 Magnesium [Mass/Vol] 2.43 mg/dL High 1.60-2.40 [facility] Comment on above: Performed By: #### 1 9123-9 ####FLORINDA Monroe ([id number])[facility] ([facility])[address] [place] [address] Manual differential performe d Ql (Bld)on 05-24-2024 Acanthocytes LM Ql (Bld) [facility] Comment on above: Performed By: #### 5 0957-0 ####FLORINDA Monroe ([id number])[facility] ([facility])[address] [place] [address] Basophils (Bld) [#/Vol] 0.00 x10*3/uL Normal 0.00-0.10 [facility] Comment on above: Performed By: #### 5 0957-0 ####FLORINDA Monroe ([id number])[facility] ([facility])[address] [place] [address] Basophils/100 WBC (Bld) 0.0 % Normal 0.0-2.0 [facility] Comment on above: Performed By: #### 5 0957-0 ####FLORINDA Monroe ([id number])[facility] ([facility])[address] [place] [address] Shelby cells LM Ql (Bld) [facility] Comment on above: Performed By: #### 5 0957-0 ####FLORINDA Monroe ([id number])[facility] ([facility])[address] [place] [address] Cells Counted Total (Bld) [#] 115 Normal [facility] Comment on above: Performed By: #### 5 0957-0 ####FLORINDA Monroe ([id number])[facility] ([facility])[address] [place] [address] Eosinophils (Bld) [#/Vol] 0.00 x10*3/uL Normal 0.00-0.70 [facility] Comment on above: Performed By: #### 5 0957-0 ####FLORINDA Monroe ([id number])[facility] ([facility])[address] [place] [address] Eosinophils/100 WBC (Bld) 0.0 % Normal 0.0-6.0 [facility] Comment on above: Performed By: #### 5 57-0 ####FLORINDA Monroe ([id number])[facility] ([facility])[address] [place] [address] Lymphocytes (Bld) [#/Vol] 0.29 x10*3/uL Low 1.20-4.80 [facility] Comment on above: Performed By: #### 5 57-0 ####FLORINDA Monroe ([id number])[facility] ([facility])[address] [place] [address] Lymphocytes/100 WBC (Bld) 2.6 % Normal 13.0-44.0 [facility] Comment on above: Performed By: #### 5 57-0 ####FLORINDA Monroe ([id number])[facility] ([facility])[address] [place] [address] Monocytes (Bld) [#/Vol] 0.78 x10*3/uL Normal 0.10-1.00 [facility] Comment on above: Performed By: #### 5 0957-0 ####FLORINDA Monroe ([id number])[facility] ([facility])[address] [place] [address] Monocytes/100 WBC (Bld) 7.0 % Normal 2.0-10.0 [facility] Comment on above: Performed By: #### 5 0957-0 ####FLORINDA Monroe ([id number])[facility] ([facility])[address] [place] [address] Ovalocytes LM Ql (Bld) Few [facility] Comment on above: Performed By: #### 5 0957-0 ####FLORINDA Monroe ([id number])[facility] ([facility])[address] [place] [address] RBC morphology finding Nom (Bld) See Below [facility] Comment on above: Performed By: #### 5 0957-0 ####FLORINDA Monroe ([id number])[facility] ([facility])[address] [place] [address] Segmented neutrophils (Bld) [#/Vol] 10.12 x10*3/uL High 1.20-7.00 [facility] Comment on above: Performed By: #### 5 0957-0 ####FLORINDA Monroe ([id number])[facility] ([facility])[address] [place] [address] Segmented neutrophils/100 WBC (Bld) 90.4 % Normal 40.0-80.0 [facility] Comment on above: Result Comment: Perc ent differential counts (%) should be interpreted in the context of the absolute cell counts (cells/uL). Performed By: #### 5 0957-0 ####FLORINDA Monroe ([id number])[facility] ([facility])[address] [place] [address] PT and aPTT panel Coag (PPP) on 05-24-2024 aPTT Coag (PPP) [Time] 43 s High 27-38 [facility] Comment on above: Order Comment: The A PTT is no longer used for monitoring Unfractionated Heparin Therapy. For monitoring Heparin Therapy, use the Heparin Assay. Performed By: #### 3 4529-8 ####FLORINDA Monroe ([id number])[facility] ([facility])[address] [place] [address] INR Coag (PPP) [Relative time] 1.1 Normal 0.9-1.1 [facility] Comment on above: Order Comment: The A PTT is no longer used for monitoring Unfractionated Heparin Therapy. For monitoring Heparin Therapy, use the Heparin Assay. Performed By: #### 3 4529-8 ####FLORINDA Monroe ([id number])[facility] ([facility])[address] [place] [address] PT Coag (PPP) [Time] 12.3 s Normal 9.8-12.8 [facility] Comment on above: Order Comment: The A PTT is no longer used for monitoring Unfractionated Heparin Therapy. For monitoring Heparin Therapy, use the Heparin Assay. Performed By: #### 3 4529-8 ####FLORINDA Monroe ([id number])[facility] ([facility])[address] [place] [address] Phosphateon 05-24-2024 Phosphate [Mass/Vol] 5.2 mg/dL High 2.5-4.9 [facility] Comment on above: Result Comment: The performance characteristics of phosphorus testing in heparinized plasma have been validated by the individual laboratory site where testing is performed. Testing on heparinized plasma is not approved by the FDA; however, such approval is not necessary. Performed By: #### 2 777-1 ####FLORINDA Monroe ([id number])[facility] ([facility])[address] [place] [address] Tacrolimuson 05-24-2024 Tacrolimus (Bld) [Mass/Vol] 3.9 ng/mL Normal <=15.0 [facility] Comment on above: Order Comment: NOTE: Result was obtained using achemiluminescent microparticle immunoassay(CMIA) on the [employer] i system.Optimal therapeutic ranges for immunosuppressantdrugs depend upon an individualpatient's current clinical state, type oforgan transplant, time post-transplant,co-administration of other immunosuppressants,and other clinical factors. The results ofthis test should be correlated with additionalclinical and laboratory data before changesin treatment regimens are made. Performed By: #### 1 1253-2 ####FLORINDA Monroe ([id number])[facility] ([facility])[address] [place] [address] Troponin I.cardiac panelon 0 05-24-2024 Tropinin I.cardiac panel High sensitivity method 2112 ng/L Critically high 0-53 [facility] Comment on above: Order Comment: Less than 99th percentile of normal range cutoff-Female and children under 18 years old <35 ng/L; Male <54 ng/L: NegativeRepeat testing should be performed if clinically indicated.Female and children under 18 years old 35-120 ng/L; Male 54-120 ng/L:Consistent with possible cardiac damage and possible increased clinicalrisk. Serial measurements may help to assess extent of myocardial damage.>120 ng/L: Consistent with cardiac damage, increased clinical risk andmyocardial infarction. Serial measurements may help assess extent ofmyocardial damage.NOTE: Children less than 1 year old may have higher baseline troponinlevels and results should be interpreted in conjunction with the overallclinical context.NOTE: Troponin I testing is performed using a differenttesting methodology at [facility] than at [facility]. Direct result comparisons should onlybe made within the same method. Result Comment: Prev ious result verified on 05/24/2024 1803 on specimen/case [id number] called with component [facility] for procedure Troponin I, High Sensitivity with value 2,016 ng/L. Performed By: #### 8 9577-1 ####FLORINDA Monroe ([id number])[facility] ([facility])[address] [place] [address] Tropinin I.cardiac panel High sensitivity method 2016 ng/L Critically high 0-53 [facility] Comment on above: Order Comment: Less than 99th percentile of normal range cutoff-Female and children under 18 years old <35 ng/L; Male <54 ng/L: NegativeRepeat testing should be performed if clinically indicated.Female and children under 18 years old 35-120 ng/L; Male 54-120 ng/L:Consistent with possible cardiac damage and possible increased clinicalrisk. Serial measurements may help to assess extent of myocardial damage.>120 ng/L: Consistent with cardiac damage, increased clinical risk andmyocardial infarction. Serial measurements may help assess extent ofmyocardial damage.NOTE: Children less than 1 year old may have higher baseline troponinlevels and results should be interpreted in conjunction with the overallclinical context.NOTE: Troponin I testing is performed using a differenttesting methodology at [facility] than at [facility]. Direct result comparisons should onlybe made within the same method. Performed By: #### 8 9577-1 ####FLORINDA Monroe ([id number])[facility] ([facility])[address] [place] [address] Urinalysis complete W Reflex Culture panel (U)on 05-24-2024 Appearance (U) Clear Normal Clear [facility] Comment on above: Performed By: #### 5 8077-9 ####FLORINDA Monroe ([id number])[facility] ([facility])[address] [place] [address] Bacteria Auto (Urine sed) [#/Area] 1+ /HPF Abnormal NONE SEEN [facility] Comment on above: Performed By: #### 5 8077-9 ####FLORINDA Monroe ([id number])[facility] ([facility])[address] [place] [address] Bilirubin (U) [Mass/Vol] Negative Normal NEGATIVE [facility] Comment on above: Performed By: #### 5 8077-9 ####FLORINDA Monroe ([id number])[facility] ([facility])[address] [place] [address] Color (U) Light-Yellow Normal Light-Yellow , Yellow, Dark-Yellow [facility] Comment on above: Performed By: #### 5 8077-9 ####FLORINDA Monroe ([id number])[facility] ([facility])[address] [place] [address] Glucose Auto test strip (U) [Mass/Vol] Normal Normal Normal [facility] Comment on above: Performed By: #### 5 8077-9 ####FLORINDA Monroe ([id number])[facility] ([facility])[address] [place] [address] Ketones (U) [Mass/Vol] Negative Normal NEGATIVE [facility] Comment on above: Performed By: #### 5 8077-9 ####FLORINDA TARANGO L ([id number])[facility] ([facility])[address] [place] [address] Leukocyte esterase Auto test strip Ql (U) Negative Normal NEGATIVE [facility] Comment on above: Performed By: #### 5 8077-9 ####FLORINDA ROSEER L ([id number])[facility] ([facility])[address] [place] [address] Mucus Auto (Urine sed) [#/Area] FEW Normal Reference range not established. [facility] Comment on above: Performed By: #### 5 8077-9 ####FLORINDA TARANGO L ([id number])[facility] ([facility])[address] [place] [address] Nitrite Auto test strip Ql (U) Negative Normal NEGATIVE [facility] Comment on above: Performed By: #### 5 8077-9 ####FLORINDA HYDEMOPRIETO L ([id number])[facility] ([facility])[address] [place] [address] pH (U) 5.5 [pH] Normal 5.0, 5.5, 6.0, 6.5, 7.0, 7.5, 8.0 [facility] Comment on above: Performed By: #### 5 8077-9 ####FLORINDA TARANGO L ([id number])[facility] ([facility])[address] [place] [address] Protein (U) [Mass/Vol] 10 (TRACE) Normal NEGATIVE, 10 (TRACE), 20 (TRACE) [facility] Comment on above: Performed By: #### 5 8077-9 ####FLORINDA HYDEMOCURTER L ([id number])[facility] ([facility])[address] [place] [address] RBC (U) [#/Vol] 0.03 (TRACE) Abnormal NEGATIVE [facility] Comment on above: Performed By: #### 5 8077-9 ####FLORINDA HYDEMOCURTER L ([id number])[facility] ([facility])[address] [place] [address] RBC Auto (Urine sed) [#/Area] 3-5 Normal NONE, 1-2, 3-5 [facility] Comment on above: Performed By: #### 5 8077-9 ####FLORINDA Monroe ([id number])[facility] ([facility])[address] [place] [address] Specific gravity (U) [Rel density] 1.013 Normal 1.005-1.035 [facility] Comment on above: Performed By: #### 5 8077-9 ####FLORINDA Monroe ([id number])[facility] ([facility])[address] [place] [address] Urobilinogen (U) [Mass/Vol] Normal Normal Normal [facility] Comment on above: Performed By: #### 5 8077-9 ####FLORINDA Monroe ([id number])[facility] ([facility])[address] [place] [address] WBC Auto (Urine sed) [#/Area] 1-5 Normal 1-5, NONE [facility] Comment on above: Performed By: #### 5 8077-9 ####FLORINDA Monroe ([id number])[facility] ([facility])[address] [place] [address] [facility] MARIAN KOCH ([id number]) 1970 M Date Time Provider Department 05/19/24 [facility] During your visit today, we recorded the following information about you: Melissa Layne APRN.CNP 05/19/2024 2:09 PM Signed Patient was admitted to hospital with fever and hypotension at [facility] on May 19, 2024. 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 Symptoms began 6 hours prior to arrival when driving back from [place] where he began to feel very cold turned his heater up to 83 degrees. He began to have severe malaise and generalized weakness followed by facial flushing. Temperature spiked at 101.6 confirmed by the ER. Granddaughter recently developed upper respiratory infection on May 08 when he was exposed to her. Generalized headache which is unusual for him. Denies neck pain, chest pain, shortness of breath, abdominal pain, dysuria, or rash. He thinks he might be rejecting his kidney transplant. Temp 101.6, systolic blood pressure 85 mmHg with leukopenia of 2.7 thousand present on admission. No obvious source of infection but an elevated CRP of 13.7 and elevated procalcitonin of 0.4 NG per mL. The transplant physician on-call at his tertiary center declining transfer to their facility at this time until source can be clearly identified complicated by laboratory evidence of acute kidney injury with elevated creatinine of 3.06. Baseline 2.4 mg/dL on April 26. He was admitted to the intensive care unit under's sepsis protocol call and placed on empiric IV Zosyn. Patient does have a small left pleural effusion. Calcified pleural plaques noted bilaterally. Patient was diagnosed with sepsis. Admitted to the intensive care unit. CT of the chest, abdomen, pelvis without contrast is negative for acute pathology that would explain symptoms. Evidence of acute kidney injury vigorous volume resuscitation, check CMP in the morning History of renal transplant continue antirejection medications. DVT prophylaxis heparin 5000 units subcu twice daily. Allergies As of Date: 05/19/2024 Noted Allergy Reaction BEE STING 02/20/2010 4 - Hives 7 - Swelling DARVOCET-N 100 (PROPOXYPHENE N-AC*02/20/2010 4 - Hives Date Reviewed: 03/31/2024 Reviewed by: Melissa Galan LPN - Fully Assessed Prescriptions as of 05/19/2024 - ferrous sulfate 325 mg (65 mg iron) EC tablet Take 1 tablet by mouth. - Cholecalciferol, Vitamin D3, 50 mcg (2,000 unit) cap Take 100 mcg by mouth. - furosemide (LASIX) 20 mg tablet Take 20 mg by mouth every 48 hours. - albuterol HFA (PROVENTIL HFA, VENTOLIN HFA) 90 mcg/actuation inhaler Inhale 2 Puffs as instructed every 6 hours as needed. - tacrolimus ER (ASTAGRAF XL) 1 mg capsule Take 1 capsule by mouth every 24 hours. 0.5mg daily - ipratropium-albuterol (DUONEB) 0.5 mg-3 mg(2.5 mg base)/3 mL nebu Inhale 3 mL as instructed every 6 hours as needed for wheezing/shortness of breath. - gabapentin (NEURONTIN) 300 mg capsule Take 1 capsule by mouth three times a day for 90 days. - omeprazole (PRILOSEC) 40 mg capsule Take 1 capsule by mouth once daily. - sulfamethoxazole-trimethopri m (BACTRIM) 400-80 mg per tablet Take 1 tablet by mouth every afternoon. - Fluorouracil 5 % cream - alendronate (FOSAMAX) 70 mg tablet Take 1 tablet by mouth one time a week. Take with a full glass of water, on an empty stomach; do NOT lie down for 30minutes. - atorvastatin (LIPITOR) 80 mg tablet Take 1 tablet by mouth daily at bedtime. - CARDURA XL 8 mg 24 hr tablet TAKE 1 TABLET BY MOUTH EVERY DAY WITH BREAKFAST - predniSONE (DELTASONE) 5 mg tablet Take 1 tablet by mouth once daily. - amLODIPine (NORVASC) 5 mg tablet Take 10 mg by mouth once daily. - carvedilol (COREG) 25 mg tablet Take 1 tablet by mouth twice daily with meals. - acetaminophen (TYLENOL) 500 mg tablet Take 500 mg by mouth every 8 hours as needed. - mycophenolate mofetil (CELLCEPT) 250 mg capsule Take 500 mg by mouth twice daily. - magnesium oxide 400 mg cap Take 1 capsule by mouth twice daily. - ASPIRIN 81 MG TAB Take one(1) tablet daily. Probl (more content not included)... Normal [facility] 36on 05-14-2024 36 Pt seen last week fo r yearly follow up for lower extremity PAD Mentioned he had been recently seen and treated at for upper extremity edema and underwent imaging. 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 Vascular surgery consulted and recommended symptomatic treatment of swelling including MARY wraps. PT responded well to this treatment but was wondering if Dr Jauregui would be able to review imaging as well. Right upper ext. Venous Duplex 04/27/24 () CRITICAL RESULT Critical Result: Chronic DVT in right IJV and indeterminate age in right proximal subclavain vein. CONCLUSIONS: Right Upper Venous: There is age indeterminate deep vein thrombosis visualized in the proximal subclavian vein. There are chronic changes visualized in the internal jugular vein. The remainder of right upper extremity is negative for deep vein thrombosis. No flow noted in the stent at proximal right subclavian vein and unable to show compression due to stent. Non functioning R AVG. Imaging reviewed per Dr Jauregui Agree that right subclavian vein stent is occluded. No intervention indicated Agree with Vascular Surgery --continue symptomatic treatment of swelling Will call patient to inform him of above. Normal [facility] Office Visiton 05-07-2024 Follow-up visit [id number] Neil Koch 1970 M Date Provider Department Center 05/07/2024 JENNIFER BARAKAT [facility] None Family History Problem Relation Age of Onset Cancer Father High Blood Pressure Mother Cancer Mother Family Status - Relation Status Age at Father Mother Level of Service:93294 [place] OFFICE/OUTPATIENT ESTABLISHED LOW MDM 20 MIN Reason for Visit and Comments: Follow-up [494299] - recall AD 03/23/24 Normal [facility] Progress Noteon 05-07-2024 Progress Note [facility] Vascular Surgery Follow-up Office Visit CHIEF COMPLAINT: Chief Complaint Patient presents with Follow-up recall AD 03/23/24 HISTORY OF PRESENT ILLNESS: Marian Gomezll is a 54 y.o. male who returns today for follow-up for lower extremity PAD. Hx of left to right fem fem bypass [place] [address] Jauregui. Last OV 05/2023. Here for recall appointment. Pt with a hx of kidney transplant. He was recently in the hospital at for renal issues and edema. Pt states he had extreme swelling of his right arm and was told he had chronic DVTs as well as occlusion of his right subclavian vein stent. He states he saw vascular surgery at who told him surgery was not required. He is hoping Dr Jauregui can review his imaging to further evaluate. In terms of his lower extremity PAD, pt feels that it is stable. He does endorse some leg pain with ambulation but notes it has not worsened since his last visit. He denies any rest pain or slow/nonhealing sores to his feet. Recent arterial duplex notes unobtainable ABIs 2/2 to non compressible vessels bit notes waveforms appear normal. 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 Chest pain CHF (congestive heart failure) ([facility]) CKD (chronic kidney disease) stage 3, GFR 30-59 ml/min ([facility]) COPD (chronic obstructive pulmonary disease) ([facility]) ESRD (end stage renal disease) ([facility]) s/p renal transplant GERD (gastroesophageal reflux disease) History of blood transfusion History of renal transplant HTN (hypertension) Hx of blood clots hx PE 15 YRS AGO Immunosuppressed status ([facility]) Neurogenic bladder NSTEMI (non-ST elevated myocardial infarction) ([facility]) 12/27/2017 Past Surgical History: Past Surgical History: Procedure Laterality Date BLADDER SURGERY CARDIAC CATHETERIZATION 1992, 2006, 2018 COLONOSCOPY CORONARY ARTERY BYPASS GRAFT 2006 DIALYSIS FISTULA CREATION multiples B/L UE DIALYSIS FISTULA CREATION Right 07/24/2002 Dr. Luong FEMORAL BYPASS 02/11/2018 ([facility]) OTHER SURGICAL HISTORY Bilateral 01/24/2018 CO2 angiogram [...] 6 HOURS NEEDED DIRECTED, Disp: , Rfl: alendronate (Fosamax) 70 MG tablet, Take 70 mg by mouth once a week., Disp: , Rfl: amLODIPine (Norvasc) 5 MG tablet, Take 5 mg by mouth daily., Disp: , Rfl: Aspirin 81 MG capsule, Take 81 mg by mouth daily., Disp: , Rfl: atorvastatin (Lipitor) 80 MG tablet, Take 80 mg by mouth Nightly., Disp: , Rfl: cholecalciferol (Vitamin D-3) 50 MCG (2000 UT) capsule, 2,000 Units., Disp: , Rfl: doxazosin (Cardura) 8 MG tablet, , Disp: , Rfl: ferrous sulfate 325 (65 Fe) MG EC tablet, Take 1 tablet by mouth in the morning., Disp: , Rfl: furosemide (Lasix) 40 MG tablet, Take 40 mg by mouth in the morning., Disp: , Rfl: magnesium oxide (Mag-Ox) 400 MG tablet, Take 400 mg by mouth in the morning and 400 mg in the evening., Disp: , Rfl: mycophenolate (Cellcept) 500 MG tablet, Take 500 mg by mouth in the morning and 500 mg in the evening., Disp: , Rfl: omeprazole (PriLOSEC) [address] capsule, Take 20 mg by mouth in the morning., Disp: , Rfl: tacrolimus ER (Astagraf XL) 1 MG capsule ER, Take 1 mg by mouth in the morning., Disp: , Rfl: fluorouracil (Efudex) 5 % cream, APPLY TO LEFT LOWER LIP 2X DAILY FOR 2 WEEKS. WASH HANDS IMMEDIATELY AFTER APPLYING., Disp: , Rfl: Allergies: Bee venom and Propoxyphene Social History: Social History Socioeconomic History Marital status: Spouse name: Not on file Number of children: Not on file Years of education: Not on file Highest education level: Not on file Occupational History Not on file Tobacco Use Smoking status: Every Day Current packs/day: 0.00 Types: Cigarettes Last attempt to quit: 10/07/2010 Years since quittin.5 Smokeless tobacco: Current Tobacco comments: Chew tobacco Substance and Sexual Activity Alcohol use: No Drug use: No Sexual activity: Not on file Other Topics Concern Not on file Social History Narrative Not on file Social Determinants of Health Financial Resource Strain: Medium Risk (04/29/2024) Received fr (more content not included)... Normal [facility] CT TRANSFER OF OUTSIDE FILMS on 04-30-2024 CT TRANSFER OF OUTSIDE FILMS Outside images for comparison or treatment purposes, not interpreted by Radiologists. Normal [facility] XR TRANSFER OF OUTSIDE FILMS on 04-30-2024 XR TRANSFER OF OUTSIDE FILMS Outside images for comparison or treatment purposes, not interpreted by Radiologists. Normal [facility] BK virus DNAon 04-29-2024 Laboratory comment Ron (Report) Not detected Normal Not Detected [facility] Comment on above: Order Comment: Repor table range: 21.5-100,000,000 IU/mLThe juanis BKV is an in vitro nucleic acid amplification test for the quantitation of BK virus (BKV) DNA in human EDTA plasma on the [employer]anis [employer]LIVE0/8800 Systems. The test employs a dual target virus specific approach from highly-conserved regions of the BKV located in the BKV small t-antigen region and the BKV VP2 region. The analytical quantification range of this assay has been determined to be 21.5 to 100,000,000 IU/ml in plasma.As with any molecular test, mutations within the target regions of juanis BKV could affect primer and/or probe binding resulting in the under-quantitation of virus or failure to detect the presence of virus.If the assay DETECTED the presence of the virus, but was not able to accurately quantify the number of copies, the test result will be reported as <21.5 Detected or >100,000,000 Detected .The juanis BKV is intended for use as an aid in the management of BKV in transplant patients. In patients undergoing monitoring of BKV in EDTA plasma, serial DNA measurements can be used to indicate the need for potential treatment changes and to assess viral response to treatment. The results from juanis BKV are intended to be read and analyzed by a qualified licensed healthcare professional in conjunction with clinical signs and symptoms and relevant laboratory findings. Test results must not be the sole basis for patient management decisions.This test is approved by the [place] Food and Drug Administration, and its performance characteristics verified by the Molecular Diagnostic Laboratory, Department of Pathology, [facility]. Performed By: #### 3 2284-2 ####FLORINDA Monroe ([id number])[facility] ([facility])[address] [place] [address] Order Comment: Repor table Range: 35-100,000,000 IU/mL.The juanis EBV test is an in vitro nucleic acid amplification dual target assay for the quantitation of Kortney-Escudero virus (EBV) DNA in human EDTA plasma on the ju[employer]is [employer]LIVE0/8800 Systems. The test employs a dual target virus specific approach from highly-conserved regions of the EBV located in the EBV EBNA-1gene and the EBV BMRF gene. The analytical quantification range of this assay has been determined to be 35 to 100,000,000 IU/ml in plasma.As with any molecular test, mutations within the target regions of juanis EBV could affect primer and/or probe binding resulting in the under-quantitation of virus or failure to detect the presence of virus.If the assay DETECTED the presence of the virus but was not able to accurately quantify the number of copies, the test result will be reported as <35 Detected or >100,000,000 Detected .The juanis EBV test is intended for use as an aid in the management of EBV in transplant patients. In patients undergoing monitoring of EBV, serial DNA measurements can be used to indicate the need for potential treatment changes and to assess response to treatment. The results from juanis EBV are intended to be read and analyzed by a qualified licensed healthcare professional in conjunction with clinical signs and symptoms and relevant laboratory findings. Negative test results do not preclude EBV infection or EBV disease. Test results must not be the sole basis for patient management decisions.This test is approved by the [place] Food and Drug Administration, and its performance characteristics verified by the Molecular Diagnostic Laboratory, Department of Pathology, [facility]. Performed By: #### 4 3730-1 ####FLORINDA Monroe ([id number])[facility] ([facility])[address] [place] [phone] BK virus DNA COBY+probe Qnon 04-29-2024 BK virus DNA COBY+probe [Log #/Vol] Normal [facility] Comment on above: Order Comment: Repor table range: 21.5-100,000,000 IU/mLThe juanis BKV is an in vitro nucleic acid amplification test for the quantitation of BK virus (BKV) DNA in human EDTA plasma on the [employer]is RADLIVE0/8800 Systems. The test employs a dual target virus specific approach from highly-conserved regions of the BKV located in the BKV small t-antigen region and the BKV VP2 region. The analytical quantification range of this assay has been determined to be 21.5 to 100,000,000 IU/ml in plasma.As with any molecular test, mutations within the target regions of juanis BKV could affect primer and/or probe binding resulting in the under-quantitation of virus or failure to detect the presence of virus.If the assay DETECTED the presence of the virus, but was not able to accurately quantify the number of copies, the test result will be reported as <21.5 Detected or >100,000,000 Detected .The juanis BKV is intended for use as an aid in the management of BKV in transplant patients. In patients undergoing monitoring of BKV in EDTA plasma, serial DNA measurements can be used to indicate the need for potential treatment changes and to assess viral response to treatment. The results from juanis BKV are intended to be read and analyzed by a qualified licensed healthcare professional in conjunction with clinical signs and symptoms and relevant laboratory findings. Test results must not be the sole basis for patient management decisions.This test is approved by the [place] Food and Drug Administration, and its performance characteristics verified by the Molecular Diagnostic Laboratory, Department of Pathology, [facility]. Result Comment: Not calculated Performed By: #### 3 2284-2 ####FLORINDA Monroe ([id number])[facility] ([facility])[id number] [place] [address] CBC W Auto Differential pane l (Bld)on 04-29-2024 Basophils (Bld) [#/Vol] 0.01 x10*3/uL Normal 0.00-0.10 [facility] Comment on above: Performed By: #### 5 7021-8 ####FLORINDA Monroe ([id number])[facility] ([facility])[address] [place] [address] Basophils/100 WBC (Bld) 0.2 % Normal 0.0-2.0 [facility] Comment on above: Performed By: #### 5 7021-8 ####FLORINDA Monroe ([id number])[facility] ([facility])[id number] [place] [address] 28693 Eosinophils (Bld) [#/Vol] 0.08 x10*3/uL Normal 0.00-0.70 [facility] Comment on above: Performed By: #### 5 7021-8 ####FLORINDA Monroe ([id number])[facility] ([facility])[id number] [place] [address] Eosinophils/100 WBC (Bld) 1.3 % Normal 0.0-6.0 [facility] Comment on above: Performed By: #### 5 7021-8 ####FLORINDA Monroe ([id number])[facility] ([facility])[id number] [place] [address] 18038 Erythrocyte distribution width (RBC) [Ratio] 13.3 % Normal 11.5-14.5 [facility] Comment on above: Performed By: #### 5 7021-8 ####FLORINDA Monroe ([id number])[facility] ([facility])[id number] [place] [address] 24207 Hematocrit (Bld) [Volume fraction] 28.7 % Low 41.0-52.0 [facility] Comment on above: Performed By: #### 5 7021-8 ####FLORINDA Monroe ([id number])[facility] ([facility])[address] [place] [address] 76425 Hemoglobin (Bld) [Mass/Vol] 8.6 g/dL Low 13.5-17.5 [facility] Comment on above: Performed By: #### 5 7021-8 ####FLORINDA Monroe ([id number])[facility] ([facility])[id number] [place] [address] 11594 Immature granulocytes (Bld) [#/Vol] 0.02 x10*3/uL Normal 0.00-0.70 [facility] Comment on above: Performed By: #### 5 7021-8 ####FLORINDA Monroe ([id number])[facility] ([facility])[address] [place] [address] Immature granulocytes/100 WBC (Bld) 0.3 % Normal 0.0-0.9 [facility] Comment on above: Result Comment: Nathaly ture Granulocyte Count (IG) includes promyelocytes, myelocytes and metamyelocytes but does not include bands. Percent differential counts (%) should be interpreted in the context of the absolute cell counts (cells/UL). Performed By: #### 5 7021-8 ####FLORINDA Monroe ([id number])[facility] ([facility])[address] [place] [address] Lymphocytes (Bld) [#/Vol] 0.98 x10*3/uL Low 1.20-4.80 [facility] Comment on above: Performed By: #### 5 7021-8 ####FLORINDA Monroe ([id number])[facility] ([facility])[address] [place] [address] Lymphocytes/100 WBC (Bld) 16.5 % Normal 13.0-44.0 [facility] Comment on above: Performed By: #### 5 7021-8 ####FLORINDA Monroe ([id number])[facility] ([facility])[address] [place] [address] MCH (RBC) [Entitic mass] 28.1 pg Normal 26.0-34.0 [facility] Comment on above: Performed By: #### 5 7021-8 ####FLORNIDA Monroe ([id number])[facility] ([facility])[address] [place] [address] MCHC (RBC) [Mass/Vol] 30.0 g/dL Low 32.0-36.0 [facility] Comment on above: Performed By: #### 5 7021-8 ####FLORINDA Monroe ([id number])[facility] ([facility])[address] [place] [address] MCV (RBC) [Entitic vol] 94 fL Normal 80-100 [facility] Comment on above: Performed By: #### 5 7021-8 ####FLORINDA Monroe ([id number])[facility] ([facility])[address] [place] [address] Monocytes (Bld) [#/Vol] 0.61 x10*3/uL Normal 0.10-1.00 [facility] Comment on above: Performed By: #### 5 7021-8 ####FLORINDA Monroe ([id number])[facility] ([facility])[address] [place] [address] Monocytes/100 WBC (Bld) 10.3 % Normal 2.0-10.0 [facility] Comment on above: Performed By: #### 5 7021-8 ####FLORINDA Monroe ([id number])[facility] ([facility])[address] [place] [address] Neutrophils (Bld) [#/Vol] 4.23 x10*3/uL Normal 1.20-7.70 [facility] Comment on above: Result Comment: Perc ent differential counts (%) should be interpreted in the context of the absolute cell counts (cells/uL). Performed By: #### 5 7021-8 ####FLORINDA Monroe ([id number])[facility] ([facility])[address] [place] [address] Neutrophils/100 WBC (Bld) 71.4 % Normal 40.0-80.0 [facility] Comment on above: Performed By: #### 5 7021-8 ####FLORINDA Monroe ([id number])[facility] ([facility])[address] [place] [address] Nucleated RBC/100 WBC (Bld) [Ratio] 0.0 /100 WBCs Normal 0.0-0.0 [facility] Comment on above: Performed By: #### 5 7021-8 ####FLORINDA HYDEMOPRIETO Monroe ([id number])[facility] ([facility])[address] [place] [address] Platelets (Bld) [#/Vol] 83 x10*3/uL Low 150-450 [facility] Comment on above: Performed By: #### 5 7021-8 ####FLORINDA Monroe ([id number])[facility] ([facility])[address] [place] [address] RBC (Bld) [#/Vol] 3.06 x10*6/uL Low 4.50-5.90 [facility] Comment on above: Performed By: #### 5 7021-8 ####FLORINDA TARANGO L ([id number])[facility] ([facility])[address] [place] [address] WBC (Bld) [#/Vol] 5.9 x10*3/uL Normal 4.4-11.3 [facility] Comment on above: Performed By: #### 5 7021-8 ####FLORINDA Monroe ([id number])[facility] ([facility])[address] [place] [address] CMV DNA COBY+probe Qn (P)on 0 04-29-2024 CMV DNA RESULT Detected Abnormal Not Detected [facility] Comment on above: Order Comment: Repor table Range: 35-10,000,000 IU/mL.The juanis CMV test is an in vitro nucleic acid amplification test for the quantitation of Cytomegalovirus (CMV) DNA in human EDTA plasma on the juanis 6800/8800 Systems. The analytical quantification range of this assay has been determined to be 35 to 10,000,000 IU/ml in plasma.Mutations within the highly-conserved regions of the CMV DNA polymerase (UL54) gene covered by jaunis CMV may affect primers and/or probe binding resulting in the under-quantitation of virus or failure to detect the presence of virus. The juanis CMV mitigates this risk through the use of redundant amplification primers. Negative test results do not preclude CMV infection or tissue-invasive CMV disease, and test results should therefore not be the sole basis for patient management decisionsIf the assay DETECTED the presence of the virus but was not able to accurately quantify the number of copies, the test result will be reported as <35 Detected or >10,000,000 Detected .The juanis CMV is intended for use as an aid in the management of CMV in solid organ transplant patients and in hematopoietic stem cell transplant patients. In patients receiving anti-CMV therapy, serial DNA measurements can be used to assess viral response to treatment. The results from juanis CMV must beinterpreted within the context of all relevant clinical and laboratory findings.This test is approved by the [place] Food and Drug Administration, and its performance characteristics verified by the Molecular Diagnostic Laboratory, Department of Pathology, [facility]. Performed By: #### 7 2493-0 ####FLORINDA Monroe ([id number])[facility] ([facility])[address] [place] [address] CYTOMEGALOVIRUS DNA, PCR IU/ML 36 IU/mL High Not Detected [facility] Comment on above: Order Comment: Repor table Range: 35-10,000,000 IU/mL.The juanis CMV test is an in vitro nucleic acid amplification test for the quantitation of Cytomegalovirus (CMV) DNA in human EDTA plasma on the juanis RADLIVE0/8800 Systems. The analytical quantification range of this assay has been determined to be 35 to 10,000,000 IU/ml in plasma.Mutations within the highly-conserved regions of the CMV DNA polymerase (UL54) gene covered by juanis CMV may affect primers and/or probe binding resulting in the under-quantitation of virus or failure to detect the presence of virus. The juanis CMV mitigates this risk through the use of redundant amplification primers. Negative test results do not preclude CMV infection or tissue-invasive CMV disease, and test results should therefore not be the sole basis for patient management decisionsIf the assay DETECTED the presence of the virus but was not able to accurately quantify the number of copies, the test result will be reported as <35 Detected or >10,000,000 Detected .The juanis CMV is intended for use as an aid in the management of CMV in solid organ transplant patients and in hematopoietic stem cell transplant patients. In patients receiving anti-CMV therapy, serial DNA measurements can be used to assess viral response to treatment. The results from juanis CMV must beinterpreted within the context of all relevant clinical and laboratory findings.This test is approved by the [place] Food and Drug Administration, and its performance characteristics verified by the Molecular Diagnostic Laboratory, Department of Pathology, [facility]. Performed By: #### 7 2493-0 ####FLORINDA Monroe ([id number])[facility] ([facility])[address] [place] [address] CYTOMEGALOVIRUS DNA, PCR LOG IU/ML 1.56 Log IU/mL Normal [facility] Comment on above: Order Comment: Repor table Range: 35-10,000,000 IU/mL.The juanis CMV test is an in vitro nucleic acid amplification test for the quantitation of Cytomegalovirus (CMV) DNA in human EDTA plasma on the [employer]0/8800 Systems. The analytical quantification range of this assay has been determined to be 35 to 10,000,000 IU/ml in plasma.Mutations within the highly-conserved regions of the CMV DNA polymerase (UL54) gene covered by juanis CMV may affect primers and/or probe binding resulting in the under-quantitation of virus or failure to detect the presence of virus. The juanis CMV mitigates this risk through the use of redundant amplification primers. Negative test results do not preclude CMV infection or tissue-invasive CMV disease, and test results should therefore not be the sole basis for patient management decisionsIf the assay DETECTED the presence of the virus but was not able to accurately quantify the number of copies, the test result will be reported as <35 Detected or >10,000,000 Detected .The juanis CMV is intended for use as an aid in the management of CMV in solid organ transplant patients and in hematopoietic stem cell transplant patients. In patients receiving anti-CMV therapy, serial DNA measurements can be used to assess viral response to treatment. The results from juanis CMV must beinterpreted within the context of all relevant clinical and laboratory findings.This test is approved by the [place] Food and Drug Administration, and its performance characteristics verified by the [facility], Department of Pathology, [facility]. Performed By: #### 7 2493-0 ####FLORINDA Monroe ([id number])[facility] ([facility])[address] [place] [address] EBV DNA COBY+probe Renetta 04-29 EBV DNA COBY+probe (Unsp spec) [Log #/Vol] Normal [facility] Comment on above: Order Comment: Repor table Range: 35-100,000,000 IU/mL.The juanis EBV test is an in vitro nucleic acid amplification dual target assay for the quantitation of Kortney-Escudero virus (EBV) DNA in human EDTA plasma on the juanis 6800/8800 Systems. The test employs a dual target virus specific approach from highly-conserved regions of the EBV located in the EBV EBNA-1gene and the EBV BMRF gene. The analytical quantification range of this assay has been determined to be 35 to 100,000,000 IU/ml in plasma.As with any molecular test, mutations within the target regions of juanis EBV could affect primer and/or probe binding resulting in the under-quantitation of virus or failure to detect the presence of virus.If the assay DETECTED the presence of the virus but was not able to accurately quantify the number of copies, the test result will be reported as <35 Detected or >100,000,000 Detected .The juanis EBV test is intended for use as an aid in the management of EBV in transplant patients. In patients undergoing monitoring of EBV, serial DNA measurements can be used to indicate the need for potential treatment changes and to assess response to treatment. The results from juanis EBV are intended to be read and analyzed by a qualified licensed healthcare professional in conjunction with clinical signs and symptoms and relevant laboratory findings. Negative test results do not preclude EBV infection or EBV disease. Test results must not be the sole basis for patient management decisions.This test is approved by the [place] Food and Drug Administration, and its performance characteristics verified by the [facility], Department of Pathology, [facility]. Result Comment: Not calculated Performed By: #### 4 3730-1 ####FLORINDA Monroe ([id number])[facility] ([facility])[address] [place] [address]24 ELECTROLYTE PANEL, URINEon 0 7-24-2023 Chloride (U) [Moles/Vol] 73 mmol/L Normal [facility] Comment on above: Performed By: #### E LCS2 ####FLORINDA Monroe ([id number])[facility] ([facility])[address] [place] [address] 23442 CHLORIDE/CREATININE (MMOL/G) IN URINE 174 mmol/g creat Normal 23-275 [facility] Comment on above: Performed By: #### E LCS2 ####FLORINDA Monroe ([id number])[facility] ([facility])[address] [place] [address] 48378 Creatinine (U) [Mass/Vol] 41.9 mg/dL Normal 20.0-370.0 [facility] Comment on above: Performed By: #### E LCS2 ####FLORINDA Monroe ([id number])[facility] ([facility])[address] [place] [address] Performed By: #### 3 095-7 ####FLORINDA Monroe ([id number])[facility] ([facility])[address] [place] [address] 98894 Potassium (U) [Moles/Vol] 7 mmol/L Normal [facility] Comment on above: Performed By: #### E LCS2 ####FLORINDA Monroe ([id number])[facility] ([facility])[address] [place] [address] 26629 Potassium/Creatinin e (U) [Ratio] 17 mmol/g Creat Normal Not established [facility] Comment on above: Performed By: #### E LCS2 ####FLORINDA Monroe ([id number])[facility] ([facility])[address] [place] [address] 41237 Sodium (U) [Moles/Vol] 88 mmol/L Normal [facility] Comment on above: Performed By: #### E LCS2 ####FLORINDA Monroe ([id number])[facility] ([facility])[address] [place] [address] 74875 Sodium/Creatinine (U) [Ratio] 210 mmol/g Creat Normal Not established. [facility] Comment on above: Performed By: #### E LCS2 ####FLORINDA Monroe ([id number])[facility] ([facility])[address] [place] [address] 77394 HLA TRANSPLANT ANTIBODY SRINIVASAN Denis 04-29-2024 HLA RESULTS See Attached Normal [facility] Comment on above: Order Comment: Test performed at:[facility] HospitalHistocompat[facility] Immunogenetics LaboratoryPower [facility], [facility] [address] [place] [address] Performed By: #### H LANTI ####YVONNE MIRANDA S ([id number]) [facility] ([facility])[address] [place] [address] HLA-A+B+C (class I) Ab (S) Normal [facility] Comment on above: Order Comment: Test performed at:[facility] Immunogenetics LaboratoryGurvinderWe[facility], [address] [place] [address] Performed By: #### H LANTI ####YVONNE MIRANDA S ([id number]) [facility] ([facility])[address] [place] [address] HLA-DP+DQ+DR (class II) Ab (S) Normal [facility] Comment on above: Order Comment: Test performed at:[facility] Immunogenetics LaboratoryPower [facility] Hospital, [address] [place] [address] Performed By: #### H DANIELTI ####YVONNE MIRANDA S ([id number]) [facility] ([facility])[address] [place] [address] Magnesiumon 04-29-2024 Magnesium [Mass/Vol] 1.74 mg/dL Normal 1.60-2.40 [facility] Comment on above: Performed By: #### 1 9123-9 ####FLORINDA Monroe ([id number])[facility] ([facility])[address] [place] [address] Proteinon 04-29-2024 Protein Qn (U) 9 mg/dL Normal 5-25 [facility] Comment on above: Performed By: #### 2 7298-9 ####FLORINDA Monroe ([id number])[facility] ([facility])[address] [place] [address] Renal function 2000 panelon 04-29-2024 Albumin BCP dye [Mass/Vol] 3.3 g/dL Low 3.4-5.0 [facility] Comment on above: Performed By: #### 2 4362-6 ####FLORINDA Monroe ([id number])[facility] ([facility])[address] [place] [address] Anion gap [Moles/Vol] 11 mmol/L Normal 10-20 [facility] Comment on above: Performed By: #### 2 4362-6 ####FLORINDA TARANGO L ([id number])[facility] ([facility])[address] [place] [address] Calcium [Mass/Vol] 9.4 mg/dL Normal 8.6-10.6 [facility] Comment on above: Performed By: #### 2 4362-6 ####FLORINDA TARANGO L ([id number])[facility] ([facility])[address] [place] [address] Chloride [Moles/Vol] 107 mmol/L Normal 98-107 [facility] Comment on above: Performed By: #### 2 4362-6 ####FLORINDA TARANGO L ([id number])[facility] ([facility])[address] [place] [address] CO2 [Moles/Vol] 23 mmol/L Normal 21-32 [facility] Comment on above: Performed By: #### 2 4362-6 ####FLORINDA TARANGO L ([id number])[facility] ([facility])[address] [place] [address] Creatinine [Mass/Vol] 2.25 mg/dL High 0.50-1.30 [facility] Comment on above: Performed By: #### 2 4362-6 ####FLORINDA TARANGO L ([id number])[facility] ([facility])[address] [place] [address] Glomerular filtration rate/1.73 sq M.predicted 34 mL/min/1.73m*2 Low >60 [facility] Comment on above: Result Comment: Calc ulations of estimated GFR are performed using the 2020 CKD-EPI Study Refit equation without the race variable for the IDMS-Traceable creatinine methods.https://jasn.asnjournals.org/content//ASN. 6806414814 Performed By: #### 2 4362-6 ####FLORINDA Monroe ([id number])[facility] ([facility])[address] [place] [address] Glucose [Mass/Vol] 87 mg/dL Normal 74-99 [facility] Comment on above: Performed By: #### 2 4362-6 ####FLORINDA Monroe ([id number])[facility] ([facility])[address] [place] [address] Phosphate [Mass/Vol] 3.2 mg/dL Normal 2.5-4.9 [facility] Comment on above: Result Comment: The performance characteristics of phosphorus testing in heparinized plasma have been validated by the individual laboratory site where testing is performed. Testing on heparinized plasma is not approved by the FDA; however, such approval is not necessary. Performed By: #### 2 4362-6 ####FLORINDA Monroe ([id number])[facility] ([facility])[address] [place] [address] Potassium [Moles/Vol] 5.3 mmol/L Normal 3.5-5.3 [facility] Comment on above: Performed By: #### 2 4362-6 ####FLORINDA Monroe ([id number])[facility] ([facility])[address] [place] [address] Sodium [Moles/Vol] 136 mmol/L Normal 136-145 [facility] Comment on above: Performed By: #### 2 4362-6 ####FLORINDA Monroe ([id number])[facility] ([facility])[address] [place] [address] Urea nitrogen [Mass/Vol] 32 mg/dL High 6-23 [facility] Comment on above: Performed By: #### 2 4362-6 ####FLORINDA Monroe ([id number])[facility] ([facility])[address] [place] [address] Tacrolimuson 04-29-2024 Tacrolimus (Bld) [Mass/Vol] 7.9 ng/mL Normal <=15.0 [facility] Comment on above: Order Comment: NOTE: Result was obtained using achemiluminescent microparticle immunoassay(CMIA) on the Systems [employer] Developer i system.Optimal therapeutic ranges for immunosuppressantdrugs depend upon an individualpatient's current clinical state, type oforgan transplant, time post-transplant,co-administration of other immunosuppressants,and other clinical factors. The results ofthis test should be correlated with additionalclinical and laboratory data before changesin treatment regimens are made. Performed By: #### 1 1253-2 ####FLORINDA Monroe ([id number])[facility] ([facility])[address] [place] [address] 18376 URINE PROTEIN ELECTROPHORESI S + IMMUNOFIXATIONon 04-29-2024 Albumin Elph (U) [Mass fraction] 50.7 % Normal [facility] Comment on above: Performed By: #### I FESU ####FLORINDA Monroe ([id number])[facility] ([facility])[address] [place] [address] 18565 Alpha 1 globulin Elph (U) [Mass fraction] 11.2 % Normal [facility] Comment on above: Performed By: #### I FESU ####FLORIDNA Monroe ([id number])[facility] ([facility])[address] [place] [address] 61268 Alpha 2 globulin Elph (U) [Mass fraction] 6.2 % Normal [facility] Comment on above: Performed By: #### I FESU ####FLORINDA Monroe ([id number])[facility] ([facility])[address] [place] [address] 69572 Beta globulin Elph (U) [Mass fraction] 17.2 % Normal [facility] Comment on above: Performed By: #### I FESU ####FLORINDA Monroe ([id number])[facility] ([facility])[address] [place] [address] 37190 Gamma globulin Elph (U) [Mass fraction] 14.7 % Normal [facility] Comment on above: Performed By: #### I FESU ####FLORINDA Monroe ([id number])[facility] ([facility])[address] [place] [address] 80247 IMMUNOFIXATION COMMENT Detected [facility] Comment on above: Performed By: #### I FESU ####FLORINDA Monroe ([id number])[facility] ([facility])[address] [place] [address] PATH REVIEW - URINE IMMUNOFIXATION Reviewed and approved by EMMIE ELDER on 04/30/24 at 5:32 PM. [facility] Comment on above: Performed By: #### I FESU ####FLORINDA Monroe ([id number])[facility] ([facility])[address] [place] [address] 97573 PATH REVIEW-URINE PROTEIN ELECTROPHORESIS Reviewed and approved by EMMIE ELDER on 04/30/24 at 5:32 PM. [facility] Comment on above: Performed By: #### I FESU ####FLORINDA Monroe ([id number])[facility] ([facility])[address] [place] [address] 29561 URINE ELECTROPHORESIS COMMENT Normal. [facility] Comment on above: Performed By: #### I FESU ####FLORINDA Monroe ([id number])[facility] ([facility])[address] [place] [address] 00205 Urea nitrogenon 04-29-2024 Urea nitrogen (U) [Mass/Vol] 308 mg/dL Normal [facility] Comment on above: Performed By: #### 3 095-7 ####FLORINDA Monroe ([id number])[facility] ([facility])[address] [place] [address] 73494 Urea nitrogen (U) [Mass/Vol] on 04-29-2024 Urea/Creatinine (U) [Molar ratio] 7.4 g/g creat Normal Not established. [facility] Comment on above: Performed By: #### 3 095-7 ####FLORINDA Monroe ([id number])[facility] ([facility])[address] [place] [address] 82797 CBC W Auto Differential pane l (Bld)on 04-28-2024 Basophils (Bld) [#/Vol] 0.02 x10*3/uL Normal 0.00-0.10 [facility] Comment on above: Performed By: #### 5 7021-8 ####FLORINDA Monroe ([id number])[facility] ([facility])[address] [place] [address] 18527 Basophils/100 WBC (Bld) 0.4 % Normal 0.0-2.0 [facility] Comment on above: Performed By: #### 5 7021-8 ####FLORINDA Monroe ([id number])[facility] ([facility])[address] [place] [address] 57256 Eosinophils (Bld) [#/Vol] 0.06 x10*3/uL Normal 0.00-0.70 [facility] Comment on above: Performed By: #### 5 7021-8 ####FLORINDA Monroe ([id number])[facility] ([facility])[address] [place] [address] 51590 Eosinophils/100 WBC (Bld) 1.3 % Normal 0.0-6.0 [facility] Comment on above: Performed By: #### 5 7021-8 ####FLORINDA Monroe ([id number])[facility] ([facility])[address] [place] [address] 84617 Erythrocyte distribution width (RBC) [Ratio] 13.5 % Normal 11.5-14.5 [facility] Comment on above: Performed By: #### 5 7021-8 ####FLORINDA Monroe ([id number])[facility] ([facility])[address] [place] [address] 31445 Hematocrit (Bld) [Volume fraction] 27.0 % Low 41.0-52.0 [facility] Comment on above: Performed By: #### 5 7021-8 ####FLORINDA Monroe ([id number])[facility] ([facility])[address] [place] [address] 96983 Hemoglobin (Bld) [Mass/Vol] 8.4 g/dL Low 13.5-17.5 [facility] Comment on above: Performed By: #### 5 7021-8 ####FLORINDA Monroe ([id number])[facility] ([facility])[address] [place] [address] Immature granulocytes (Bld) [#/Vol] 0.01 x10*3/uL Normal 0.00-0.70 [facility] Comment on above: Performed By: #### 5 7021-8 ####FLORINDA Monroe ([id number])[facility] ([facility])[address] [place] [address] Immature granulocytes/100 WBC (Bld) 0.2 % Normal 0.0-0.9 [facility] Comment on above: Result Comment: Nathaly ture Granulocyte Count (IG) includes promyelocytes, myelocytes and metamyelocytes but does not include bands. Percent differential counts (%) should be interpreted in the context of the absolute cell counts (cells/UL). Performed By: #### 5 7021-8 ####FLORINDA Monroe ([id number])[facility] ([facility])[address] [place] [address] Lymphocytes (Bld) [#/Vol] 0.90 x10*3/uL Low 1.20-4.80 [facility] Comment on above: Performed By: #### 5 7021-8 ####FLORINDA Monroe ([id number])[facility] ([facility])[address] [place] [address] Lymphocytes/100 WBC (Bld) 18.8 % Normal 13.0-44.0 [facility] Comment on above: Performed By: #### 5 7021-8 ####FLORINDA Monroe ([id number])[facility] ([facility])[address] [place] [address] MCH (RBC) [Entitic mass] 28.9 pg Normal 26.0-34.0 [facility] Comment on above: Performed By: #### 5 7021-8 ####FLORINDA Monroe ([id number])[facility] ([facility])[address] [place] [address] MCHC (RBC) [Mass/Vol] 31.1 g/dL Low 32.0-36.0 [facility] Comment on above: Performed By: #### 5 7021-8 ####FLORINDA Monroe ([id number])[facility] ([facility])[address] [place] [address] MCV (RBC) [Entitic vol] 93 fL Normal 80-100 [facility] Comment on above: Performed By: #### 5 7021-8 ####FLORINDA Monroe ([id number])[facility] ([facility])[address] [place] [address] Monocytes (Bld) [#/Vol] 0.49 x10*3/uL Normal 0.10-1.00 [facility] Comment on above: Performed By: #### 5 7021-8 ####FLORINDA Monroe ([id number])[facility] ([facility])[address] [place] [address] Monocytes/100 WBC (Bld) 10.2 % Normal 2.0-10.0 [facility] Comment on above: Performed By: #### 5 7021-8 ####FLORINDA Monroe ([id number])[facility] ([facility])[address] [place] [address] Neutrophils (Bld) [#/Vol] 3.31 x10*3/uL Normal 1.20-7.70 [facility] Comment on above: Result Comment: Perc ent differential counts (%) should be interpreted in the context of the absolute cell counts (cells/uL). Performed By: #### 5 7021-8 ####FLORINDA Monroe ([id number])[facility] ([facility])[address] [place] [address] Neutrophils/100 WBC (Bld) 69.1 % Normal 40.0-80.0 [facility] Comment on above: Performed By: #### 5 7021-8 ####FLORINDA TARANGO L ([id number])[facility] ([facility])[address] [place] [address] Nucleated RBC/100 WBC (Bld) [Ratio] 0.0 /100 WBCs Normal 0.0-0.0 [facility] Comment on above: Performed By: #### 5 7021-8 ####FLORINDA ROSEER L ([id number])[facility] ([facility])[address] [place] [address] 87245 Platelets (Bld) [#/Vol] 82 x10*3/uL Low 150-450 [facility] Comment on above: Performed By: #### 5 7021-8 ####FLORINDA TARANGO L ([id number])[facility] ([facility])[address] [place] [address] 56032 RBC (Bld) [#/Vol] 2.91 x10*6/uL Low 4.50-5.90 [facility] Comment on above: Performed By: #### 5 7021-8 ####FLORINDA TARANGO L ([id number])[facility] ([facility])[address] [place] [address] 77778 WBC (Bld) [#/Vol] 4.8 x10*3/uL Normal 4.4-11.3 [facility] Comment on above: Performed By: #### 5 7021-8 ####FLORINDA TARANGO L ([id number])[facility] ([facility])[address] [place] [address] 51528 Magnesiumon 04-28-2024 Magnesium [Mass/Vol] 1.73 mg/dL Normal 1.60-2.40 [facility] Comment on above: Performed By: #### 1 9123-9 ####FLORINDA WESTONTZEMA L ([id number])[facility] ([facility])[address] [place] [address] comment (Bld) [Interp]on 04-28-2024 PATH REVIEW-CBC DIFFERENTIAL Mild normocytic anemia. Thrombocytopenia no platelet clumps noted. Clinical correlation is recommended. Normal [facility] Comment on above: Result Comment: Elec tronically signed out by Paula Lilly MD on 04/30/24 at 10:35 AM.By the signature on this report, the individual or group listed as making the Final Interpretation/Diagnosis certifies that they have reviewed this case. Performed By: #### 1 4869-2 ####FLORINDA Monroe ([id number])[facility] ([facility])[address] [place] [address] Renal function 2000 panelon 04-28-2024 Albumin BCP dye [Mass/Vol] 3.3 g/dL Low 3.4-5.0 [facility] Comment on above: Performed By: #### 2 4362-6 ####FLORINDA TARANGO L ([id number])[facility] ([facility])[address] [place] [address] Anion gap [Moles/Vol] 10 mmol/L Normal 10-20 [facility] Comment on above: Performed By: #### 2 4362-6 ####FLORINDA HYDEMOPRIETO L ([id number])[facility] ([facility])[address] [place] [address] Calcium [Mass/Vol] 9.4 mg/dL Normal 8.6-10.6 [facility] Comment on above: Performed By: #### 2 4362-6 ####FLORINDA TARANGO L ([id number])[facility] ([facility])[address] [place] [address] Chloride [Moles/Vol] 107 mmol/L Normal 98-107 [facility] Comment on above: Performed By: #### 2 4362-6 ####FLORINDA HYDEMOTZER L ([id number])[facility] ([facility])[address] [place] [address] CO2 [Moles/Vol] 24 mmol/L Normal 21-32 [facility] Comment on above: Performed By: #### 2 4362-6 ####FLORINDA HYDEMOTZER L ([id number])[facility] ([facility])[address] [place] [address] Creatinine [Mass/Vol] 2.28 mg/dL High 0.50-1.30 [facility] Comment on above: Performed By: #### 2 4362-6 ####FLORINDA Monroe ([id number])[facility] ([facility])[address] [place] [address] Glomerular filtration rate/1.73 sq M.predicted 33 mL/min/1.73m*2 Low >60 [facility] Comment on above: Result Comment: Calc ulations of estimated GFR are performed using the 2020 CKD-EPI Study Refit equation without the race variable for the IDMS-Traceable creatinine methods.https://jasn.asnjournals.org/content//ASN. 8619640273 Performed By: #### 2 4362-6 ####FLORINDA Monroe ([id number])[facility] ([facility])[address] [place] [address] Glucose [Mass/Vol] 88 mg/dL Normal 74-99 [facility] Comment on above: Performed By: #### 2 4362-6 ####FLORINDA Monroe ([id number])[facility] ([facility])[address] [place] [address] Phosphate [Mass/Vol] 3.2 mg/dL Normal 2.5-4.9 [facility] Comment on above: Result Comment: The performance characteristics of phosphorus testing in heparinized plasma have been validated by the individual laboratory site where testing is performed. Testing on heparinized plasma is not approved by the FDA; however, such approval is not necessary. Performed By: #### 2 4362-6 ####FLORINDA Monroe ([id number])[facility] ([facility])[address] [place] [address] Potassium [Moles/Vol] 5.1 mmol/L Normal 3.5-5.3 [facility] Comment on above: Performed By: #### 2 4362-6 ####FLORINDA Monroe ([id number])[facility] ([facility])[address] [place] [address] Sodium [Moles/Vol] 136 mmol/L Normal 136-145 [facility] Comment on above: Performed By: #### 2 4362-6 ####FLORINDA Monroe ([id number])[facility] ([facility])[address] [place] [address] Urea nitrogen [Mass/Vol] 29 mg/dL High - [facility] Comment on above: Performed By: #### 2 4362-6 ####FLORINDA Monroe ([id number])[facility] ([facility])[address] [place] [address] Tacrolimuson 04-28-2024 Tacrolimus (Bld) [Mass/Vol] 7.9 ng/mL Normal <=15.0 [facility] Comment on above: Order Comment: NOTE: Result was obtained using achemiluminescent microparticle immunoassay(CMIA) on the Systems Software Developer i system.Optimal therapeutic ranges for immunosuppressantdrugs depend upon an individualpatient's current clinical state, type oforgan transplant, time post-transplant,co-administration of other immunosuppressants,and other clinical factors. The results ofthis test should be correlated with additionalclinical and laboratory data before changesin treatment regimens are made. Performed By: #### 1 1253-2 ####FLORINDA Monroe ([id number])[facility] ([facility])[address] [place] [address] CBC panel Auto (Bld)on 04-27 Erythrocyte distribution width (RBC) [Ratio] 13.6 % Normal 11.5-14.5 [facility] Comment on above: Performed By: #### 5 8410-2 ####FLORINDA Monroe ([id number])[facility] ([facility])[address] [place] [address] Hematocrit (Bld) [Volume fraction] 26.4 % Low 41.0-52.0 [facility] Comment on above: Performed By: #### 5 8410-2 ####FLORINDA Monroe ([id number])[facility] ([facility])[address] [place] [address] Hemoglobin (Bld) [Mass/Vol] 8.6 g/dL Low 13.5-17.5 [facility] Comment on above: Performed By: #### 5 8410-2 ####FLORINDA Monroe ([id number])[facility] ([facility])[address] [place] [address] MCH (RBC) [Entitic mass] 28.9 pg Normal 26.0-34.0 [facility] Comment on above: Performed By: #### 5 8410-2 ####FLORINDA Monroe ([id number])[facility] ([facility])[address] [place] [address] MCHC (RBC) [Mass/Vol] 32.6 g/dL Normal 32.0-36.0 [facility] Comment on above: Performed By: #### 5 8410-2 ####FLORINDA Monroe ([id number])[facility] ([facility])[address] [place] [address] MCV (RBC) [Entitic vol] 89 fL Normal 80-100 [facility] Comment on above: Performed By: #### 5 8410-2 ####FLORINDA Monroe ([id number])[facility] ([facility])[address] [place] [address] Nucleated RBC/100 WBC (Bld) [Ratio] 0.0 /100 WBCs Normal 0.0-0.0 [facility] Comment on above: Performed By: #### 5 8410-2 ####FLORINDA Monroe ([id number])[facility] ([facility])[address] [place] [address] Platelets (Bld) [#/Vol] 88 x10*3/uL Low 150-450 [facility] Comment on above: Performed By: #### 5 8410-2 ####FLORINDA Monroe ([id number])[facility] ([facility])[address] [place] [address] RBC (Bld) [#/Vol] 2.98 x10*6/uL Low 4.50-5.90 [facility] Comment on above: Performed By: #### 5 8410-2 ####FLORINDA Monroe ([id number])[facility] ([facility])[address] [place] [address] WBC (Bld) [#/Vol] 4.9 x10*3/uL Normal 4.4-11.3 [facility] Comment on above: Performed By: #### 5 8410-2 ####FLORINDA Monroe ([id number])[facility] ([facility])[address] [place] [address] Comprehensive metabolic 2000 panelon 04-27-2024 Albumin BCP dye [Mass/Vol] 3.4 g/dL Normal 3.4-5.0 [facility] Comment on above: Performed By: #### 2 4323-8 ####FLORINDA Monroe ([id number])[facility] ([facility])[address] [place] [address] ALP [Catalytic activity/Vol] 70 U/L Normal 33-120 [facility] Comment on above: Performed By: #### 2 4323-8 ####FLORINDA Monroe ([id number])[facility] ([facility])[address] [place] [address] ALT With P-5'-P [Catalytic activity/Vol] 9 U/L Low 10-52 [facility] Comment on above: Result Comment: Karely ents treated with Sulfasalazine may generate falsely decreased results for ALT. Performed By: #### 2 4323-8 ####FLORINDA Monroe ([id number])[facility] ([facility])[address] [place] [address] Anion gap [Moles/Vol] 11 mmol/L Normal 10-20 [facility] Comment on above: Performed By: #### 2 4323-8 ####FLORINDA Monroe ([id number])[facility] ([facility])[address] [place] [address] AST With P-5'-P [Catalytic activity/Vol] 9 U/L Normal 9-39 [facility] Comment on above: Performed By: #### 2 4323-8 ####FLORINDA TARANGO L ([id number])[facility] ([facility])[address] [place] [address] Bilirubin [Mass/Vol] 0.4 mg/dL Normal 0.0-1.2 [facility] Comment on above: Performed By: #### 2 4323-8 ####FLORINDA HYDEMOCURTER L ([id number])[facility] ([facility])[address] [place] [address] Calcium [Mass/Vol] 9.3 mg/dL Normal 8.6-10.6 [facility] Comment on above: Performed By: #### 2 4323-8 ####FLORINDA TARANGO L ([id number])[facility] ([facility])[address] [place] [address] Chloride [Moles/Vol] 111 mmol/L High 98-107 [facility] Comment on above: Performed By: #### 2 4323-8 ####FLORINDA HYDEMOTZER L ([id number])[facility] ([facility])[address] [place] [address] CO2 [Moles/Vol] 21 mmol/L Normal 21-32 [facility] Comment on above: Performed By: #### 2 4323-8 ####FLORINDA HYDEMOCURTER L ([id number])[facility] ([facility])[address] [place] [address] Creatinine [Mass/Vol] 2.26 mg/dL High 0.50-1.30 [facility] Comment on above: Performed By: #### 2 4323-8 ####FLORINDA WESTONTZER L ([id number])[facility] ([facility])[address] [place] [address] Glomerular filtration rate/1.73 sq M.predicted 33 mL/min/1.73m*2 Low >60 [facility] Comment on above: Result Comment: Calc ulations of estimated GFR are performed using the 2020 CKD-EPI Study Refit equation without the race variable for the IDMS-Traceable creatinine methods.https://jasn.asnjournals.org/content//ASN. 1999849221 Performed By: #### 2 4323-8 ####FLORINDA Monroe ([id number])[facility] ([facility])[address] [place] [address] Glucose [Mass/Vol] 116 mg/dL High 74-99 [facility] Comment on above: Performed By: #### 2 4323-8 ####FLORINDA TARANGO L ([id number])[facility] ([facility])[address] [place] [address] Potassium [Moles/Vol] 4.7 mmol/L Normal 3.5-5.3 [facility] Comment on above: Performed By: #### 2 4323-8 ####FLORINDA TARANGO L ([id number])[facility] ([facility])[address] [place] [address] Protein [Mass/Vol] 5.1 g/dL Low 6.4-8.2 [facility] Comment on above: Performed By: #### 2 4323-8 ####FLORINDA WESTONTZEMA L ([id number])[facility] ([facility])[address] [place] [address] Sodium [Moles/Vol] 138 mmol/L Normal 136-145 [facility] Comment on above: Performed By: #### 2 4323-8 ####FLORINDA HYDEMOTZEMA L ([id number])[facility] ([facility])[address] [place] [address] Urea nitrogen [Mass/Vol] 24 mg/dL High 6-23 [facility] Comment on above: Performed By: #### 2 4323-8 ####FLORINDA HYDEMOTZER L ([id number])[facility] ([facility])[address] [place] [address] DIRECT ANTIGLOBULIN TESTon 0 04-27-2024 Direct antiglobulin test.poly specific reagent Ql (RBC) Negative Normal [facility] Comment on above: Performed By: #### D AT ####FLORINDA Monroe ([id number])[facility] ([facility])[address] [place] [address] ELECTROLYTE PANEL, URINEon 0 - Chloride (U) [Moles/Vol] 142 mmol/L Normal [facility] Comment on above: Performed By: #### E LCS2 ####FLORINDA Monroe ([id number])[facility] ([facility])[address] [place] [address] CHLORIDE/CREATININE (MMOL/G) IN URINE 1214 mmol/g creat High 23-275 [facility] Comment on above: Performed By: #### E LCS2 ####FLORINDA Monroe ([id number])[facility] ([facility])[address] [place] [address] Creatinine (U) [Mass/Vol] 11.7 mg/dL Low 20.0-370.0 [facility] Comment on above: Performed By: #### E LCS2 ####FLORINDA Monroe ([id number])[facility] ([facility])[address] [place] [address] Potassium (U) [Moles/Vol] 11 mmol/L Normal [facility] Comment on above: Performed By: #### E LCS2 ####FLORINDA Monroe ([id number])[facility] ([facility])[address] [place] [address] Potassium/Creatinin e (U) [Ratio] 94 mmol/g Creat Normal Not established [facility] Comment on above: Performed By: #### E LCS2 ####FLORINDA Monroe ([id number])[facility] ([facility])[address] [place] [address] Sodium (U) [Moles/Vol] 127 mmol/L Normal [facility] Comment on above: Performed By: #### E LCS2 ####FLORINDA Monroe ([id number])[facility] ([facility])[address] [place] [address] Sodium/Creatinine (U) [Ratio] 1085 mmol/g Creat Normal Not established. [facility] Comment on above: Performed By: #### E LCS2 ####FLORINDA Monroe ([id number])[facility] ([facility])[address] [place] [address] Ferritinon 04-27-2024 Ferritin [Mass/Vol] 330 ng/mL High 20-300 [facility] Comment on above: Performed By: #### 2 276-4 ####FLORINDA Monroe ([id number])[facility] ([facility])[address] [place] [address] Fibrin D-dimer FEUon 024 Fibrin D-dimer FEU (PPP) [Mass/Vol] 1221 ng/mL FEU High <=500 [facility] Comment on above: Order Comment: The D -Dimer assay is reported in ng/mL Fibrinogen Equivalent Units (FEU). The results of this assay should NOT be used for the exclusion of Deep Vein Thrombosis and/or Pulmonary Embolism. Performed By: #### 4 8065-7 ####FLORINDA Monroe ([id number])[facility] ([facility])[address] [place] [address] Fibrinogenon 04-27-2024 Fibrinogen Coag (PPP) [Mass/Vol] 153 mg/dL Low 200-400 [facility] Comment on above: Performed By: #### 3 255-7 ####FLORINDA Monroe ([id number])[facility] ([facility])[address] [place] [address] Glucose Test strip manual (B ld) [Mass/Vol]on 04-27-2024 Glucose [Mass/Vol] 115 mg/dL High 74-99 [facility] Comment on above: Performed By: #### 2 341-6 ####FLORINDA Monroe ([id number])[facility] ([facility])[address] [place] [address] Haptoglobinon 04-27-2024 Haptoglobin [Mass/Vol] 82 mg/dL Normal 37-246 [facility] Comment on above: Performed By: #### 4 542-7 ####REJI Munroe ([id number])[facility] ()[address] [place] [address] Heparin induced platelet Ab Qn (S)on 04-27-2024 INTERPRETATION FOR ANTI-PLATELET FACTOR 4 ANTIBODY Negative Normal Negative [facility] Comment on above: Result Comment: Anti -Platelet Factor 4 Antibody is not detected by EARLE assay.These results should be used in conjunction with clinical findings.Clinical correlation is recommended. Performed By: #### 4 5155-9 ####FLORINDA Monroe ([id number])[facility] ([facility])[address] [place] [address] SERUM AND PLATELET FACTOR 4 0.062 OD Units Normal <0.400 [facility] Comment on above: Performed By: #### 4 5155-9 ####FLORINDA Monroe ([id number])[facility] ([facility])[address] [place] [address] Iron and Iron binding capaci ty panelon 04-27-2024 Iron [Mass/Vol] 80 ug/dL Normal 35-150 [facility] Comment on above: Performed By: #### 5 0190-8 ####FLORINDA Monroe ([id number])[facility] ([facility])[address] [place] [address] Iron binding capacity [Mass/Vol] 263 ug/dL Normal 240-445 [facility] Comment on above: Performed By: #### 5 0190-8 ####FLORINDA Monroe ([id number])[facility] ([facility])[address] [place] [address] Iron binding capacity.unsaturate d [Mass/Vol] 183 ug/dL Normal 110-370 [facility] Comment on above: Performed By: #### 5 0190-8 ####FLORINDA Monroe ([id number])[facility] ([facility])[address] [place] [address] Iron saturation [Mass fraction] 30 % Normal 25-45 [facility] Comment on above: Performed By: #### 5 0190-8 ####FLORINDA Monroe ([id number])[facility] ([facility])[address] [place] [address] Lactate dehydrogenaseon 04-07 LDH Lactate to pyruvate reaction [Catalytic activity/Vol] 117 U/L Normal 84-246 [facility] Comment on above: Performed By: #### 1 4804-9 ####FLORINDA Monroe ([id number])[facility] ([facility])[address] [place] [address] Magnesiumon 04-27-2024 Magnesium [Mass/Vol] 1.96 mg/dL Normal 1.60-2.40 [facility] Comment on above: Performed By: #### 1 9123-9 ####FLORINDA Monroe ([id number])[facility] ([facility])[address] [place] [address] Natriuretic peptide B [Mass/ Vol]on 04-27-2024 Natriuretic peptide B (Bld) [Mass/Vol] 517 pg/mL High 0-99 [facility] Comment on above: Order Comment: <100 pg/mL - Heart failure ohigtiys753-459 pg/mL - Intermediate probability of acute heart failure exacerbation. Correlate with clinical context and patient history. >=300 pg/mL - Heart Failure likely. Correlate with clinical context and patient history.Biotin interference may cause falsely decreased results. Patients taking a Biotin dose of up to 5 mg/day should refrain from taking Biotin for 24 hours before sample collection. Providers may contact their local laboratory for further information. Performed By: #### 3 0934-4 ####FLORINDA Monroe ([id number])[facility] ([facility])[address] [place] [address] PT and aPTT panel Coag (PPP) on 04-27-2024 aPTT Coag (PPP) [Time] 29 s Normal 27-38 [facility] Comment on above: Order Comment: The A PTT is no longer used for monitoring Unfractionated Heparin Therapy. For monitoring Heparin Therapy, use the Heparin Assay. Performed By: #### 3 4529-8 ####FLORINDA Monroe ([id number])[facility] ([facility])[address] [place] [address] INR Coag (PPP) [Relative time] 1.1 Normal 0.9-1.1 [facility] Comment on above: Order Comment: The A PTT is no longer used for monitoring Unfractionated Heparin Therapy. For monitoring Heparin Therapy, use the Heparin Assay. Performed By: #### 3 4529-8 ####FLORINDA Monroe ([id number])[facility] ([facility])[address] [place] [address] PT Coag (PPP) [Time] 12.3 s Normal 9.8-12.8 [facility] Comment on above: Order Comment: The A PTT is no longer used for monitoring Unfractionated Heparin Therapy. For monitoring Heparin Therapy, use the Heparin Assay. Performed By: #### 3 4529-8 ####FLORINDA Monroe ([id number])[facility] ([facility])[address] [place] [address] Procalcitoninon 04-27-2024 Procalcitonin [Mass/Vol] 0.02 ng/mL Normal <=0.07 [facility] Comment on above: Order Comment: Proca lcitonin (PCT) results measured serially canaid in decision-making for antibiotic discontinuation inpatients with suspected or confirmed sepsis in conjunctionwith additional clinical information. Antibioticdiscontinuation may be considered with a change in PCT of>80% from the peak result or when PCT falls below 0.50 ng/mL.Procalcitonin results should not be used in isolation butshould be interpreted in conjunction with additional clinicaland laboratory findings. Procalcitonin results should not beused to guide the initiation of antibiotic therapy.Falsely low PCT values in the presence of bacterial infectionmay occur in early infection, with atypical pathogens,localized infections, and subacute infectious endocarditis.Falsely elevated results outside of severe bacterialinfection/sepsis may be seen in patients with renal failureor insufficiency, severe trauma or wetzel, recent majorabdominal/cardiac surgery, acute multi-organ failure, rarelyin patients with medullary thyroid carcinoma and rareneuroendocrine tumors, and non-specific interfering antibodies(heterophile antibodies, rheumatoid factor, human anti-mouseantibodies (HAMA), etc).Performance of the PCT test in pediatric patients (<18yo), women, immunocompromised patients, and patients onimmunomodulatory medications has not been evaluated. Performed By: #### 3 3959-8 ####FLORINDA Monroe ([id number])[facility] ([facility])[address] [place] [address] Reticulocytes panel (Bld)on 04-27-2024 Hemoglobin (Reticulocytes) [Entitic mass] 30 pg Normal 28-38 [facility] Comment on above: Performed By: #### 5 0262-5 ####FLORINDA Monroe ([id number])[facility] ([facility])[address] [place] [address] IMMATURE RETIC FRACTION 4.3 % Normal <=16.0 [facility] Comment on above: Result Comment: Reti culocytes are measured based on a fluorescent technique. The IRF, or immature reticulocyte fraction, is the percent of reticulocytes that show medium (MFR) or high (HFR) fluorescence. This value can be used to assess the relative maturity of the reticulocyte population in response to anemia. The shift reticulocytes are not measured by this technique, eliminating the need for their correction in the reticulocyte index. Performed By: #### 5 0262-5 ####FLORINDA Monroe ([id number])[facility] ([facility])[address] [place] [address] Reticulocytes (Bld) [#/Vol] 0.050 x10*6/uL Normal 0.022-0.118 [facility] Comment on above: Performed By: #### 5 0262-5 ####FLORINDA Monroe ([id number])[facility] ([facility])[address] [place] [address] Reticulocytes/100 RBC (Bld) 1.7 % Normal 0.5-2.0 [facility] Comment on above: Performed By: #### 5 0262-5 ####FLORINDA Monroe ([id number])[facility] ([facility])[address] [place] [address] Tacrolimuson 04-27-2024 Tacrolimus (Bld) [Mass/Vol] 5.4 ng/mL Normal <=15.0 [facility] Comment on above: Order Comment: Dante nino draw 30 min prior to tacro administrationNOTE: Result was obtained using achemiluminescent microparticle immunoassay(CMIA) on the [employer] i system.Optimal therapeutic ranges for immunosuppressantdrugs depend upon an individualpatient's current clinical state, type oforgan transplant, time post-transplant,co-administration of other immunosuppressants,and other clinical factors. The results ofthis test should be correlated with additionalclinical and laboratory data before changesin treatment regimens are made. Performed By: #### 1 1253-2 ####FLORINDA Monroe ([id number])[facility] ([facility])[address] [place] [address] US KIDNEY TRANSPLANTon 04-27 US KIDNEY TRANSPLANT Normal [facility] Urea nitrogenon 04-27-2024 Urea nitrogen (U) [Mass/Vol] 78 mg/dL Normal [facility] Comment on above: Performed By: #### 3 095-7 ####FLORINDA Monroe ([id number])[facility] ([facility])[address] [place] [address] Urea nitrogen (U) [Mass/Vol] on 04-27-2024 Creatinine (U) [Mass/Vol] 11.8 mg/dL Low 20.0-370.0 [facility] Comment on above: Performed By: #### 3 095-7 ####FLORINDA Monroe ([id number])[facility] ([facility])[address] [place] [address] Urea/Creatinine (U) [Molar ratio] 6.6 g/g creat Normal Not established. [facility] Comment on above: Performed By: #### 3 095-7 ####FLORINDA Monroe ([id number])[facility] ([facility])[id number] [place] [address] Urinalysis complete panel (U )on 04-27-2024 Appearance (U) Clear Normal Clear [facility] Comment on above: Performed By: #### 2 4356-8 ####FLORINDA Monroe ([id number])[facility] ([facility])[address] [place] [address] Bilirubin (U) [Mass/Vol] Negative Normal NEGATIVE [facility] Comment on above: Performed By: #### 2 4356-8 ####FLORINDA Monroe ([id number])[facility] ([facility])[address] [place] [address] Color (U) Colorless Normal Light-Yellow , Yellow, Dark-Yellow [facility] Comment on above: Performed By: #### 2 4356-8 ####FLORINDA Monroe ([id number])[facility] ([facility])[address] [place] [address] Glucose Auto test strip (U) [Mass/Vol] Normal Normal Normal [facility] Comment on above: Performed By: #### 2 4356-8 ####FLORINDA Monroe ([id number])[facility] ([facility])[address] [place] [address] Ketones (U) [Mass/Vol] Negative Normal NEGATIVE [facility] Comment on above: Performed By: #### 2 4356-8 ####FLORINDA Monroe ([id number])[facility] ([facility])[address] [facility] [place] [address] Leukocyte esterase Auto test strip Ql (U) Negative Normal NEGATIVE [facility] Comment on above: Performed By: #### 2 4356-8 ####FLORINDA Monroe ([id number])[facility] ([facility])[address] [place] [address] Nitrite Auto test strip Ql (U) Negative Normal NEGATIVE [facility] Comment on above: Performed By: #### 2 4356-8 ####FLORINDA Monroe ([id number])[facility] ([facility])[address] [facility] [place] [address] pH (U) 6.0 [pH] Normal 5.0, 5.5, 6.0, 6.5, 7.0, 7.5, 8.0 [facility] Comment on above: Performed By: #### 2 4356-8 ####FLORINDA Monroe ([id number])[facility] ([facility])[address] [place] [address] Protein (U) [Mass/Vol] Negative Normal NEGATIVE, 10 (TRACE), 20 (TRACE) [facility] Comment on above: Performed By: #### 2 4356-8 ####FLORINDA Monroe ([id number])[facility] ([facility])[id number] [place] [address] RBC (U) [#/Vol] Negative Normal NEGATIVE [facility] Comment on above: Performed By: #### 2 4356-8 ####FLORINDA Monroe ([id number])[facility] ([facility])[id number] [place] [address] Specific gravity (U) [Rel density] 1.008 Normal 1.005-1.035 [facility] Comment on above: Performed By: #### 2 4356-8 ####FLORINDA Monroe ([id number])[facility] ([facility])[address] [place] [address] Urobilinogen (U) [Mass/Vol] Normal Normal Normal [facility] Comment on above: Performed By: #### 2 4356-8 ####FLORINDA Monroe ([id number])[facility] ([facility])[id number] [place] [address] VASC US UPPER EXTREMITY VENO US DUPLEX RIGHTon 04-27-2024 VASC US UPPER EXTREMITY VENOUS DUPLEX RIGHT Normal [facility] XR CHEST 1 VIEWon 04-27-2024 XR CHEST 1 VIEW Normal [facility] Meli 04-23-2024 HERONN Telephone (DANIKA) MARIAN KOCH ([id number]) 1970 M Date Time Provider Department 04/23/24 MARIA ELENA DOCKERY During your visit today, we recorded the following information about you: Librado EricksonANTWAN sandhu 04/23/2024 4:00 PM Signed Patient called, verified name and date of , regarding vascular studies done in February. Patient states last office visit 02/03/24, Dr. Dockery ordered vascular test to done. Assessment and Plan: 53 years old gentleman prior history of severe three-vessel coronary artery disease bypass surgery significant peripheral vascular disease ASSESSMENT/PLAN: 1. Peripheral vascular disease (HCC) - ICD9: 443.9, ICD10: I73.9 (primary diagnosis) Significant upper extremity and lower extremity peripheral vascular disease Major complaint swelling in the right arm compared to the left with prior history of stenting of the venous system suggestive of stent thrombosis or stenosis Schedule for upper extremity venous and arterial duplex for assessment of the venous and arterial system Both AV fistula both arms are nonfunctional Patient had femoral to femoral bypass for his peripheral vascular disease many years ago - US ARM VEIN DVT [facility] - US ARM ARTERIAL [facility] - CONSULT TO VASCULAR SURGERY Patient completed studies on 02/26/24, has not heard back from office with results. Patient also states Dr. Dockery was going to reach out to a surgeon at [facility], patient states he has not heard anymore about that neither. Patient states he is still having swelling in extremities. Patient states he also had a recent US of his heart done through ordered by his transplant doctor. Patient ok'd staff to request those records if needed. Patient would like a call back from cardiology staff with results, next steps in proceeding. Number verified. Mei Erickson LPN April 23, 2024 4:00 PM Sarah Fung MA 04/23/2024 4:[address] Dockery is in [place] office on Saturday. Will have him review and advise at that time. TTE results are in Care everywhere with . JANNA Gill Laurie, MA 04/28/2024 2:[address] Dockery reviewed. Placed consult order to Dr. Joel in Vascular surgery. Or Vascular surgeon of pt's choice. Referral in place. Sarah Fung MA Pt also wanting Dr. Dockery to review his TTE and vascular testing done last [facility] at [facility]. (IN Care everywhere ) Lyudmila Garner 04/29/2024 9:48 AM Signed 1st attempt LVM to schedule appt with [facility] Marva Guzman PSS 05/01/2024 8:47 AM Signed 2nd attempt: LVM for patient to schedule with vascular surgery Lyudmila Garner 05/04/2024 9:11 AM Signed 3rd attempt LVM to schedule with vascular surgery Sarah Fung MA 05/04/2024 1:47 PM Signed Mychart msg sent to encourage call to schedule consult. JANNA Gill Danelle, RN 06/02/2024 10:52 AM Signed Called and left a VM encouraging the patient to call and schedule his consult. Bebe Guadarrama RN Allergies As of Date: 04/23/2024 Noted Allergy Reaction BEE STING 02/20/2010 4 - Hives 7 - Swelling DARVOCET-N 100 (PROPOXYPHENE N-AC*02/20/2010 4 - Hives Date Reviewed: 03/31/2024 Reviewed by: Melissa Galan LPN - Fully Assessed Reason for Visit: Results [95] Cmt: Vasular studies Prescriptions as of 06/02/2024 - ferrous sulfate 325 mg (65 mg iron) EC tablet Take 1 tablet by mouth. - Cholecalciferol, Vitamin D3, 50 mcg (2,000 unit) cap Take 100 mcg by mouth. - furosemide (LASIX) 20 mg tablet Take 20 mg by mouth every 48 hours. - albuterol HFA (PROVENTIL HFA, VENTOLIN HFA) 90 mcg/actuation inhaler Inhale 2 Puffs as instructed every 6 hours as needed. - tacrolimus ER (ASTAGRAF XL) 1 mg capsule Take 1 capsule by mouth every 24 hours. 0.5mg daily - ipratropium-albuterol (DUONEB) 0.5 mg-3 mg(2.5 mg base)/3 mL nebu Inhale 3 mL as instructed every 6 hours as needed for wheezing/shortness of breath. - gabapentin (NEURONTIN) 300 mg capsule Take 1 capsule by mouth three times a day for 90 days. - omeprazole (PRILOSEC) 40 mg capsule Take 1 capsule by mouth once daily. - sulfamethoxazole-trimethopri m (BACTRIM) 400-80 mg per tablet Take 1 tablet by mouth every afternoon. - Fluorouracil 5 % cream - alendronate (FOSAMAX) 70 mg tablet Take 1 tablet by mouth one time a week. Take with a full glass of water, on an empty stomach; do NOT lie down for 30minutes. - atorvastatin (LIPITOR) 80 mg tablet Take 1 tablet by mouth daily at bedtime. - CARDURA XL 8 mg 24 hr tablet TAKE 1 TABLET BY MOUTH EVERY DAY WITH BREAKFAST - predniSONE (DELTASONE) 5 mg tablet Take 1 tablet by mouth once daily. - amLODIPine (NORVASC) 5 mg tablet Take 10 mg by mouth once daily. - carvedilol (COREG) 25 mg tablet Take 1 tablet by mouth twice daily with meals. - acetaminophen (TYLENOL) 500 mg tablet Take 500 mg by mo (more content not included)... Normal [facility] TRANSTHORACIC ECHO (TTE) COM [facility] 04-01-2024 TRANSTHORACIC ECHO ([place]) [place] [address] [phone], TRANSTHORACIC ECHOCARDIOGRAM REPORT Patient Name: MARIAN Castillo Physician: [id number] Luis Felipe Ngo MD Study Date: 04/01/2024 Ordering Provider: [id number] VÍCTOR EM MRN/PID: [id number] Fellow: Nurse: Date of /Age: 5 1970 / 54 years Oven Operator: Abraham Toribio ZULMA Gender: M Additional Staff: Height: 152.40 cm Admit Date: Weight: 64.86 kg Admission Status: Outpatient BSA / BMI: 1.62 m2 / 27.93 Department Location: [facility] Echo Lab kg/m2 Blood Pressure: 103 /65 mmHg Study Type: TRANSTHORACIC ECHO (TTE) COMPLETE Diagnosis/ICD: Localized edema-R60.0 CPT Codes: Echo Complete w Full Doppler-20371 Patient History: Pertinent History: Patient did not wish to have an iv at this time. Study Detail: The following Echo studies were performed: 2D, M-Mode, Doppler and color flow. PHYSICIAN INTERPRETATION: Left Ventricle: The left ventricular systolic function is normal, with a visually estimated ejection fraction of 55%. There are no regional wall motion abnormalities. The left ventricular cavity size is normal. Spectral Doppler shows a pseudonormal pattern of left ventricular diastolic filling. Left Atrium: The left atrium is normal in size. Right Ventricle: The right ventricle is upper limits of normal in size. There is normal right ventricular global systolic function. Right Atrium: The right atrium is normal in size. Echodensity in the right atrium likely represents prominent eustachian valve. Aortic Valve: The aortic valve is trileaflet. The aortic valve dimensionless index is 0.49. There is moderate aortic valve regurgitation. The peak instantaneous gradient of the aortic valve is 26.4 mmHg. The mean gradient of the aortic valve is 15.0 mmHg. Moderate aortic regurgitation. Mitral Valve: The mitral valve is abnormal. There is mild mitral valve regurgitation. Mild mitral annular calcification noted. Tricuspid Valve: The tricuspid valve is structurally normal. There is trace tricuspid regurgitation. Pulmonic Valve: The pulmonic valve is not well visualized. There is mild pulmonic valve regurgitation. Pericardium: There is no pericardial effusion noted. Aorta: The aortic root is normal. Systemic Veins: The inferior vena cava appears to be of normal size. In comparison to the previous echocardiogram(s): There are no prior studies on this patient for comparison purposes. CONCLUSIONS: 1. The left ventricular systolic function is normal, with a visually estimated ejection fraction of 55%. 2. Spectral Doppler shows a pseudonormal pattern of left ventricular diastolic filling. 3. There is normal right ventricular global systolic function. 4. Moderate aortic regurgitation. QUANTITATIVE DATA SUMMARY: 2D MEASUREMENTS: Normal Ranges: Ao Root d: 3.10 cm (2.0-3.7cm) LAs: 4.70 cm (2.7-4.0cm) IVSd: 2.70 cm (0.6-1.1cm) LVPWd: 1.58 cm (0.6-1.1cm) LVIDd: 5.30 cm (3.9-5.9cm) LVIDs: 3.53 cm LV Mass Index: 638.3 g/m2 LV % FS 33.4 % LA VOLUME: Normal Ranges: LA Vol A4C: 47.8 ml (22+/-6mL/m2) LA Vol A2C: 28.1 ml LA Vol BP: 39.8 ml LA Vol Index A4C: 29.5ml/m2 LA Vol Index A2C: 17.3 ml/m2 LA Vol Index BP: 24.6 ml/m2 LA Area A4C: 18.6 cm2 LA Area A2C: 13.1 cm2 LA Major Afton A4C: 6.2 cm LA Major A[place]on A2C: 5.2 cm LA Volume Index: 28.6 ml/m2 LA Vol A4C: 46.3 ml LA Vol A2C: 27.7 ml LV SYSTOLIC FUNCTION BY 2D PLANIMETRY (MOD): Normal Ranges: EF-A4C View: 46 % (>=55%) EF-A2C View: 52 % EF-Biplane: 50 % EF-Visual: 55 % LV EF Reported: 55 % LV DIASTOLIC FUNCTION: Normal Ranges: MV Peak E: 1.40 m/s (0.7-1.2 m/s) MV Peak A: 0.91 m/s (0.42-0.7 m/s) E/A Ratio: 1.54 (1.0-2.2) MV e' 0.085 m/s (>8.0) MV lateral e' 0.10 m/s MV medial e' 0.07 m/s E/e' Ratio: 16.60 (<8.0) MITRAL VALVE: Normal Ranges: MV DT: 338 msec (150-240msec) AORTIC VALVE: Normal Ranges: AoV Vmax: 2.57 m/s (<=1.7m/s) AoV Peak P.4 mmHg (<20mmHg) AoV Mean P.0 mmHg (1.7-11.5mmHg) LVOT Max Giovanni: 1.32 m/s (<=1.1m/s) AoV VTI: 64.20 cm (18-25cm) LVOT VTI: 31.50 cm LVOT Diameter: 2.10 cm (1.8-2.4cm) AoV Area, VTI: 1.70 cm2 (2.5-5.5cm2) AoV Area,Vmax: 1.78 cm2 (2.5-4.5cm2) AoV Dimensionless Index: 0.49 AORTIC INSUFFICIENCY: AI Vmax: 5.14 m/s AI Half-time: 610 msec AI Decel Rate: 247.00 cm/s2 RIGHT VENTRICLE: RV Basal 4.38 cm RV Mid 2.26 cm RV Major 8.5 cm TAPSE: 25.6 mm RV s' 0.11 m/s TRICUSPID VALVE/RVSP: Normal Ranges: Peak TR Velocity: 2.78 m/s RV Syst Pressure: 33.9 mmHg (< 30mmHg) PULMONIC VALVE: Normal Ranges: PV Max Giovanni: 1.2 m/s (0.6-0.9m/s) PV Max P.6 mmHg PIEDV: 0.88 m/s PADP: 6.1 mmHg [id number] Luis Felipe Ngo MD Electronically signed on 04/01/2024 at 9:43:59 AM Final [facility] XR Chest PA and Lateralon IMPRESSION: Stable findings. Glass Vial Bending Conveyor Feeder: RADHA Transcribe Date/Time: Apr 01 2024 12:15P Dictated by : JACE GONZALEZ MD This examination was interpreted and the report reviewed and electronically signed by: JACE GONZALEZ MD on Apr 01 2024 12:16PM [facility] DIV[facility] * * *Final Report* * * DATE OF EXAM: Mar 31 2024 9:03AM WOX [id number] - XR CHEST 2V FRONTAL/LAT / PROCEDURE REASON: Pneumonia of right lower lobe due to infectious organism * * * * Physician Interpretation * * * * EXAMINATION: CHEST RADIOGRAPH (2 VIEW FRONTAL & LATERAL) CLINICAL HISTORY: Pneumonia of right lower lobe due to infectious organism MQ: XC2_6 EXAM DATE/TIME: 03/31/2024 9:03 AM COMPARISON: Chest x-ray of 02/11/2024 RESULT: Lines, tubes, and devices: None. Lungs and pleura: No consolidation. Stable bilateral calcified pleural plaques. Mild blunting of costophrenic angles again seen possibly small pleural effusions versus chronic pleural thickening. No lung mass. No pleural effusion. No pneumothorax. Cardiomediastinal silhouette: Normal cardiomediastinal silhouette. Bones and soft tissues: Unremarkable. DIVISION OF RADIOLOGY Provider, [facility] - 04/01/2024 * * *Final Report* * * DATE OF EXAM: Mar 31 2024 9:03AM WOX [id number] - XR CHEST 2V FRONTAL/LAT / PROCEDURE REASON: Pneumonia of right lower lobe due to infectious organism * * * * Physician Interpretation * * * * EXAMINATION: CHEST RADIOGRAPH (2 VIEW FRONTAL & LATERAL) CLINICAL HISTORY: Pneumonia of right lower lobe due to infectious organism MQ: XC2_6 EXAM DATE/TIME: 03/31/2024 9:03 AM COMPARISON: Chest x-ray of 02/11/2024 RESULT: Lines, tubes, and devices: None. Lungs and pleura: No consolidation. Stable bilateral calcified pleural plaques. Mild blunting of costophrenic angles again seen possibly small pleural effusions versus chronic pleural thickening. No lung mass. No pleural effusion. No pneumothorax. Cardiomediastinal silhouette: Normal cardiomediastinal silhouette. Bones and soft tissues: Unremarkable. IMPRESSION IMPRESSION: Stable findings. Glass Vial Bending Conveyor Feeder: RADHA Transcribe Date/Time: Apr 01 2024 12:15P Dictated by : JACE GONZALEZ MD This examination was interpreted and the report reviewed and electronically signed by: JACE GONZALEZ MD on Apr 01 2024 12:16PM EST [facility] XR Chest PA and LateralOrder ed By: [facility] Provider on 04-01-2024 [facility] CNOVon 03-31-2024 CNOV Office Visit (FAMPWS ) MARIAN KOCH ([id number]) 1970 Diana Date Time Provider Department 03/31/24 8:00 AM Diana TATE FAMPWS During your visit today, we recorded the following information about you: Pulse Respiration Blood pressure Weight 63/minute 16/minute 140/83 63 kg Diana Tate PA-C 03/31/2024 6:32 PM Signed 54 year old male with c/o here for follow up ER. Current status: Pain level tolerable mostly foot from plantar spur, lower back, uses Tylenol Weight 3 lbs. No lightheadedness or dizziness. No sinus issues. No cough outside dry cough ev yazmin once I awhile No swallowing issues, heart burn, reflux. No chest, arm, upper back, anterior neck pain Sleeps in recliner, has tried to lay flat in awhile Urination: normal urination, nocturia x 2. No pain or discomfort. No arm pain, + swelling in right arm (after IV in ER), both legs up to knees at times and right lower abdomen. Leg pain if walks a lot in calves, thigh, lower back. Like dragging leg around, heavy, aches, throbs. Improves with standing still. No worse than after fem-fem bypass. Uses arms all day long, some aching and cramping. 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 03/23/[address] Vegas [facility] ED r/t need for follow up with pneumonia [facility] with complaint of cough, dyspnea on exertion, mild in severity positive for blood-tinged sputum. Low-grade temp 100.1 F lasted less than a day, mild cough. On no blood thinners. 22-vgoa-sixv smoking history. Past medical history positive for DVT. Vital signs: 98.4 F-64-18-116/40-96% RA exam demonstrated no unusual respiratory effort or chest sounds. Chest x-ray demonstrated right upper lobe lower aspect with density possible pneumonia. History of chronic scarring in the left lower lobe and plaque seen on prior x-rays. 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 Interpretation identified no evidence of pulmonary embolism, right upper lobe infiltrate with mild patchy infiltrates in both lower lobes superimposed on scarring. Densely calcified pleural plaques at the left lung base. Several small nodules in the right lower lobe thrombus is seen in the right subclavian vein and proximal portion of the superior vena cava CBC demonstrated no elevated WBC, HANDH 9.0 and 20.5 which is his baseline, platelets 78,000. Abnormal chemistries: Chloride 108-BUN 23-CRE 1.89-EGFR 40-GLU 141 D-dimer elevated at 1.87 Discharged on Zithromax 5-day pack Dx: RLL 02/26/2024 arterial US: IMPRESSION RIGHT SIDE Subclavian artery : patent . Axillary artery : patent . Brachial artery : plaque noted without evidence of hemodynamically significant stenosis . Calcified vessel wall. Radial artery : plaque noted without evidence of hemodynamically significant stenosis in the forearm. Segment of occlusion at the wrist with reconstitution at the hand. Ulnar artery : plaque noted without evidence of hemodynamically significant stenosis . Calcified, shadowing plaque noted. A non functioning occluded arteriovenous dialysis fistula is noted in the right arm. LEFT SIDE Subclavian artery distal: plaque noted without evidence of hemodynamically significant stenosis . Axillary artery distal: plaque noted without evidence of hemodynamically significant stenosis . Brachial artery proximal upper arm: plaque noted without evidence of hemodynamically significant stenosis . -High brachial bifurcation noted in the proximal upper arm. Radial artery mid upper arm: occluded . Reconstitutes distal upper arm. Multiple collaterals visualized mid/distal upper arm. Calcified shadowing plaque noted. Ulnar artery : plaque noted without evidence of hemodynamically significant stenosis . Calcified shadowing plaque noted. A non functioning occluded arteriovenous dialysis graft is noted in the left arm. 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 Retrograde flow noted. 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 No flow visualized proximal vessel. Clinical correlation is advised; deep vein thrombosis of indeterminate age in the subclavian vein. Appears more chronically occluded. Occluded stent proximal vessel. RIGHT SIDE - SUPERFICIAL VEINS Negative for superficial thrombophlebitis in the basilic vein and cephalic vein. Visualized in segments LEFT SIDE - DEEP VEINS Negative for acute deep vein thrombosis. -High brachial (more content not included)... Normal [facility] XR CHEST 2V FRONTAL/LATon XR CHEST 2V FRONTAL/LAT * * *Final Report* * * DATE OF EXAM: Mar 31 2024 9:03AM WOX [id number] - XR CHEST 2V FRONTAL/LAT / PROCEDURE REASON: Pneumonia of right lower lobe due to infectious organism * * * * Physician Interpretation * * * * EXAMINATION: CHEST RADIOGRAPH (2 VIEW FRONTAL and LATERAL) CLINICAL HISTORY: Pneumonia of right lower lobe due to infectious organism MQ: XC2_6 EXAM DATE/TIME: 03/31/2024 9:03 AM COMPARISON: Chest x-ray of 02/11/2024 RESULT: Lines, tubes, and devices: None. Lungs and pleura: No consolidation. Stable bilateral calcified pleural plaques. Mild blunting of costophrenic angles again seen possibly small pleural effusions versus chronic pleural thickening. No lung mass. No pleural effusion. No pneumothorax. Cardiomediastinal silhouette: Normal cardiomediastinal silhouette. Bones and soft tissues: Unremarkable. IMPRESSION: Stable findings. Glass Vial Bending Conveyor Feeder: PSCB Transcribe Date/Time: Apr 01 2024 12:15P Dictated by : JACE GONZALEZ MD This examination was interpreted and the report reviewed and electronically signed by: JACE GONZALEZ MD on Apr 01 2024 12:16PM EST [id number] Normal [facility] XR Chest PA and Lateralon Radiology Study observation (narrative) [facility] 03-23-2024 CNPN Telephone (INTMWS) MARIAN KOCH ([id number]) 1970 M Date Time Provider Department 03/23/24 Diana TATE INTMWS During your visit today, we recorded the following information about you: Zeny Hollis LPN 03/23/2024 2:06 PM Signed [facility] ER calling they would like pcp to call them back at [phone] to speak to the ER Diana Luna PA-C 03/23/2024 5:[address] Dusty Vegas called: Hemoptysis with bright red blood, right pneumonia. CTA no PE Treating with Zithromax VSS Rec f/u over next few weeks Please schedule. Thanks, ROBBIN Staples Elizabeth, MA 03/24/2024 9:42 AM Signed Patient has follow up 03/31 Deion Barbosa MA Allergies As of Date: 03/23/2024 Noted Allergy Reaction BEE STING 02/20/2010 4 - Hives 7 - Swelling DARVOCET-N 100 (PROPOXYPHENE N-AC*02/20/2010 4 - Hives Date Reviewed: 02/11/2024 Reviewed by: Pilar Stahl MA - Fully Assessed Reason for Visit: Clinical Update [1735] Prescriptions as of 03/24/2024 - albuterol HFA (PROVENTIL HFA, VENTOLIN HFA) 90 mcg/actuation inhaler Inhale 2 Puffs as instructed every 6 hours as needed. - tacrolimus ER (ASTAGRAF XL) 1 mg capsule Take 1 capsule by mouth every 24 hours. 0.5mg daily - ipratropium-albuterol (DUONEB) 0.5 mg-3 mg(2.5 mg base)/3 mL nebu Inhale 3 mL as instructed every 6 hours as needed for wheezing/shortness of breath. - gabapentin (NEURONTIN) 300 mg capsule Take 1 capsule by mouth three times a day for 90 days. - omeprazole (PRILOSEC) 40 mg capsule Take 1 capsule by mouth once daily. - sulfamethoxazole-trimethopri m (BACTRIM) 400-80 mg per tablet Take 1 tablet by mouth every afternoon. - Fluorouracil 5 % cream - alendronate (FOSAMAX) 70 mg tablet Take 1 tablet by mouth one time a week. Take with a full glass of water, on an empty stomach; do NOT lie down for 30minutes. - atorvastatin (LIPITOR) 80 mg tablet Take 1 tablet by mouth daily at bedtime. - CARDURA XL 8 mg 24 hr tablet TAKE 1 TABLET BY MOUTH EVERY DAY WITH BREAKFAST - predniSONE (DELTASONE) 5 mg tablet Take 1 tablet by mouth once daily. - amLODIPine (NORVASC) 5 mg tablet Take 10 mg by mouth once daily. - carvedilol (COREG) 25 mg tablet Take 1 tablet by mouth twice daily with meals. - acetaminophen (TYLENOL) 500 mg tablet Take 500 mg by mouth every 8 hours as needed. - mycophenolate mofetil (CELLCEPT) 250 mg capsule Take 500 mg by mouth twice daily. - magnesium oxide 400 mg cap Take 1 capsule by mouth twice daily. - ASPIRIN 81 MG TAB Take one(1) tablet daily. Problem List As Of Date 03/23/2024 Noted Resolved Renal failure, chronic, stage 3 (moderate) [N18*02/20/2010 CAD (coronary artery disease) [I25.10] 02/20/2010 Dialysis patient [Z99.2] 02/20/2010 11/28/2012 DVT (deep venous thrombosis) (HCC) [I82.409] 09/28/2010 VIC (obstructive sleep apnea) [G47.33] 08/04/2011 Depression [F32.A] 03/07/2012 H/O kidney transplant [Z94.0] 11/28/2012 GERD (gastroesophageal reflux disease) [K21.9] 03/05/2014 Chronic left-sided low back pain with left-side*06/21/2016 Bilateral leg pain [M79.604, M79.605] 11/28/2016 Iliotibial band syndrome [M76.30] 11/28/2016 Radiculopathy, lumbar region [M54.16] 11/28/2016 Claudication of both lower extremities (HCC) [I*08/22/2017 Neurogenic bladder [N31.9] 12/08/2017 Hyperparathyroidism (HCC) [E21.3] 12/08/2017 Hyperhomocysteinemia (HCC) [E72.11] 12/08/2017 Pulmonary nodules [R91.8] Renal stones [N20.0] RLQ abdominal pain [R10.31] 01/06/2018 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/07/2018 Coronary artery disease of [place] artery of [place]*01/07/2018 Chronic pain syndrome [G89.4] 08/09/2018 Other osteoporosis without current pathological*09/21/2018 Current mild episode of major depressive disord*02/05/2019 COPD (chronic obstructive pulmonary disease) (H*06/09/2021 Mixed hyperlipidemia [E78.2] 06/09/2021 Palpitations [R00.2] 06/09/2021 Screen for colon cancer [Z12.11] 06/09/2021 06/14/2021 Cataracta [H26.9] 03/06/2022 Traumatic incomplete tear of left rotator cuff *09/15/2022 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 Abnormal EKG [R94.31] 12/14/2022 VHD (valvular heart disease) [I38] 12/17/2022 Pulmonary hypertension (HCC) [I27.20] 12/17/2022 S/P shoulder surgery [Z98.890] 01/25/2023 Encounter Status:Closed by DEION BARBOSA on 03/24/24 [facility] Panel InformationOrdered By: Kaylan Ybarra on 03-23-2024 Left Mid Outflow EDV 9.1 cm/s [employer] Work Phone: Left Mid Outflow PSV 49.7 cm/s [employer] Work Phone: Left Prox Anastomosis EDV 9.4 cm/s [employer] Work Phone: Left Prox Anastomosis PSV 61.4 cm/s [employer] Work Phone: Left Prox Outflow EDV 4.7 cm/s [employer] Work Phone: Left Prox Outflow PSV 51.9 cm/s [employer] Work Phone: Right Dist Anastomosis EDV 3.1 cm/s [employer] Work Phone: Right Dist Anastomosis PSV 27.5 cm/s [employer] Work Phone: Right Dist Outflow EDV 5.8 cm/s [employer] Work Phone: Right Dist Outflow PSV 57.3 cm/s [employer] Work Phone: Right Graft 1 Left to Right Fem-Fem Graft [employer] Work Phone: Right Inflow Artery EDV 11.2 cm/s [employer] Work Phone: Right Inflow Artery PSV 84.7 cm/s [employer] Work Phone: Right Mid Outflow EDV 9.1 cm/s [employer] Work Phone: Right Mid Outflow PSV 54.0 cm/s [employer] Work Phone: Right Outflow Vessel EDV 9.1 cm/s [employer] Work Phone: Right Outflow Vessel PSV 53.0 cm/s [employer] Work Phone: Right Prox Anastomosis EDV 9.4 cm/s [employer] Phone: Right Prox Anastomosis PSV 61.4 cm/s [employer] Phone: [phone] Right Prox Outflow EDV 4.7 cm/s [employer] Phone: [phone] Right Prox Outflow PSV 51.9 cm/s [employer] Phone: No Panel Informationon 03-23 Patent left to right fem-fem graft. Right side findings: Resting CHEL is not obtainable secondary to non-compressible vessels. Waveforms appear normal. Left side findings: Resting CHEL is not obtainable secondary to non-compressible vessels. Waveforms appear normal. CHEL Bilateral ABIs may be overestimated due to medial calcinosis based on arterial waveforms. Right side findings: Non-compressible resting CHEL. Left side findings: Non-compressible resting CHEL. Right PVR waveforms: Consistent with MODERATE disease - ankle. Left PVR waveforms: Consistent with MODERATE disease - ankle. Patients vessels are non compressible. Multiple non working AV grafts in bilateral upper extremities could not obtain accurate BP. Lower Artery Bypass Graft Graft 1: left fem-fem graft Graft inflow - diffuse plaque noted with no significant stenosis and multiphasic Doppler waveforms. Proximal anastomosis - patent and multiphasic Doppler waveforms. Proximal graft - patent and multiphasic Doppler waveforms. Mid graft - <50% stenosis and multiphasic Doppler waveforms. Distal graft - patent and multiphasic Doppler waveforms. Distal anastomosis - patent and multiphasic Doppler waveforms. Graft outflow - diffuse plaque noted with no significant stenosis and multiphasic Doppler waveforms. Moderate plaque in the inflow, mid and outflow segments. The graft is negative for pseudoaneurysm and is negative for hematoma. Perigraft fluid not identified. Press Bucker Details A sawyer scale, color Doppler imaging and spectral Doppler analysis ultrasound was performed. During the study longitudinal and transverse views were obtained. Pulsed wave doppler was performed. The exam was performed with the patient in the supine position. Overall the study quality was adequate. Study was technically difficult due to: non-compressible vessels. CV CPACS CBC panel Auto (Bld)on 03-18 Erythrocyte distribution width (RBC) [Ratio] 13.6 % Normal 11.5-14.5 [facility] Comment on above: Performed By: #### 5 8410-2 ####FLORINDA Monroe ([id number])[facility] ([facility])[address] [place] [address] Hematocrit (Bld) [Volume fraction] 31.4 % Low 41.0-52.0 [facility] Comment on above: Performed By: #### 5 8410-2 ####FLORINDA Monroe ([id number])[facility] ([facility])[address] [place] [address] Hemoglobin (Bld) [Mass/Vol] 9.9 g/dL Low 13.5-17.5 [facility] Comment on above: Performed By: #### 5 8410-2 ####FLORINDA Monroe ([id number])[facility] ([facility])[address] [place] [address] MCH (RBC) [Entitic mass] 29.0 pg Normal 26.0-34.0 [facility] Comment on above: Performed By: #### 5 8410-2 ####FLORINDA Monroe ([id number])[facility] ([facility])[address] [place] [address] MCHC (RBC) [Mass/Vol] 31.5 g/dL Low 32.0-36.0 [facility] Comment on above: Performed By: #### 5 8410-2 ####FLORINDA Monroe ([id number])[facility] ([facility])[address] [place] [address] MCV (RBC) [Entitic vol] 92 fL Normal 80-100 [facility] Comment on above: Performed By: #### 5 8410-2 ####FLORINDA Monroe ([id number])[facility] ([facility])[address] [place] [address] Nucleated RBC/100 WBC (Bld) [Ratio] 0.0 /100 WBCs Normal 0.0-0.0 [facility] Comment on above: Performed By: #### 5 8410-2 ####FLORINDA Monroe ([id number])[facility] ([facility])[address] [place] [address] Platelets (Bld) [#/Vol] 103 x10*3/uL Low 150-450 [facility] Comment on above: Performed By: #### 5 8410-2 ####FLORINDA Monroe ([id number])[facility] ([facility])[address] [place] [address] RBC (Bld) [#/Vol] 3.41 x10*6/uL Low 4.50-5.90 [facility] Comment on above: Performed By: #### 5 8410-2 ####FLORINDA Monroe ([id number])[facility] ([facility])[address] [place] [address] WBC (Bld) [#/Vol] 5.0 x10*3/uL Normal 4.4-11.3 [facility] Comment on above: Performed By: #### 5 8410-2 ####FLORINDA Monroe ([id number])[facility] ([facility])[id number] [place] [address] Cobalaminson 03-18-2024 Cobalamin (Vitamin B12) [Mass/Vol] 291 pg/mL Normal 211-911 [facility] Comment on above: Performed By: #### 2 132-9 ####FLORINDA Monroe ([id number])[facility] ([facility])[address] [place] [address] Ferritinon 03-18-2024 Ferritin [Mass/Vol] 350 ng/mL High 20-300 [facility] Comment on above: Performed By: #### 2 276-4 ####FLORINDA Monroe ([id number])[facility] ([facility])[address] [place] [address] Folateon 03-18-2024 Folate [Mass/Vol] 6.4 ng/mL Normal >5.0 [facility] Comment on above: Order Comment: Low < 3.4Borderline 3.4-5.0Normal >5.0Patients receiving more than 5 mg/day of biotin may have interference in test results. A sample should be taken no sooner than eight hours after previous dose. Contact the testing laboratory for additional information. Performed By: #### 2 284-8 ####FLORINDA Monroe ([id number])[facility] ([facility])[address] [place] [address] Iron and Iron binding capaci ty panelon 03-18-2024 Iron [Mass/Vol] 79 ug/dL Normal 35-150 [facility] Comment on above: Performed By: #### 5 0190-8 ####FLORINDA TARANGO L ([id number])[facility] ([facility])[address] [place] [address] Iron binding capacity [Mass/Vol] 285 ug/dL Normal 240-445 [facility] Comment on above: Performed By: #### 5 0190-8 ####FLORINDA HYDEMOTZEMA L ([id number])[facility] ([facility])[address] [place] [address] Iron binding capacity.unsaturate d [Mass/Vol] 206 ug/dL Normal 110-370 [facility] Comment on above: Performed By: #### 5 0190-8 ####FLORINDA HYDEMOTZEMA L ([id number])[facility] ([facility])[address] [place] [address] Iron saturation [Mass fraction] 28 % Normal 25-45 [facility] Comment on above: Performed By: #### 5 0190-8 ####FLORINDA HYDEMOTZER L ([id number])[facility] ([facility])[address] [place] [address] Renal function 2000 panelon 03-18-2024 Albumin BCP dye [Mass/Vol] 3.9 g/dL Normal 3.4-5.0 [facility] Comment on above: Performed By: #### 2 4362-6 ####FLORINDA HYDEMOTZEMA L ([id number])[facility] ([facility])[address] [place] [address] Anion gap [Moles/Vol] 12 mmol/L Normal 10-20 [facility] Comment on above: Performed By: #### 2 4362-6 ####FLORINDA TARANGO L ([id number])[facility] ([facility])[address] [place] [address] Calcium [Mass/Vol] 9.7 mg/dL Normal 8.6-10.6 [facility] Comment on above: Performed By: #### 2 4362-6 ####FLORINDA WESTONTZER L ([id number])[facility] ([facility])[address] [place] [address] Chloride [Moles/Vol] 106 mmol/L Normal 98-107 [facility] Comment on above: Performed By: #### 2 4362-6 ####FLORINDA WESTONTZER L ([id number])[facility] ([facility])[address] [place] [address] CO2 [Moles/Vol] 23 mmol/L Normal 21-32 [facility] Comment on above: Performed By: #### 2 4362-6 ####FLORINDA TARANGO L ([id number])[facility] ([facility])[address] [place] [address] Creatinine [Mass/Vol] 1.78 mg/dL High 0.50-1.30 [facility] Comment on above: Performed By: #### 2 4362-6 ####FLORINDA TARANGO L ([id number])[facility] ([facility])[address] [place] [address] Glomerular filtration rate/1.73 sq M.predicted 44 mL/min/1.73m*2 Low >60 [facility] Comment on above: Result Comment: Calc ulations of estimated GFR are performed using the 2020 CKD-EPI Study Refit equation without the race variable for the IDMS-Traceable creatinine methods.https://jasn.asnjournals.org/content//ASN. 3805126377 Performed By: #### 2 4362-6 ####FLORINDA Monroe ([id number])[facility] ([facility])[address] [place] [address] Glucose [Mass/Vol] 89 mg/dL Normal 74-99 [facility] Comment on above: Performed By: #### 2 4362-6 ####FLORINDA Monroe ([id number])[facility] ([facility])[address] [place] [address] Phosphate [Mass/Vol] 3.1 mg/dL Normal 2.5-4.9 [facility] Comment on above: Result Comment: The performance characteristics of phosphorus testing in heparinized plasma have been validated by the individual laboratory site where testing is performed. Testing on heparinized plasma is not approved by the FDA; however, such approval is not necessary. Performed By: #### 2 4362-6 ####FLORINDA Monroe ([id number])[facility] ([facility])[address] [place] [address] Potassium [Moles/Vol] 4.9 mmol/L Normal 3.5-5.3 [facility] Comment on above: Performed By: #### 2 4362-6 ####FLORINDA Monroe ([id number])[facility] ([facility])[address] [place] [address] Sodium [Moles/Vol] 136 mmol/L Normal 136-145 [facility] Comment on above: Performed By: #### 2 4362-6 ####FLORINDA Monroe ([id number])[facility] ([facility])[address] [place] [address] Urea nitrogen [Mass/Vol] 21 mg/dL Normal 6-23 [facility] Comment on above: Performed By: #### 2 4362-6 ####FLORINDA Monroe ([id number])[facility] ([facility])[address] [place] [address] Tacrolimuson 03-18-2024 Tacrolimus (Bld) [Mass/Vol] 6.6 ng/mL Normal <=15.0 [facility] Comment on above: Order Comment: NOTE: Result was obtained using achemiluminescent microparticle immunoassay(CMIA) on the [employer] i system.Optimal therapeutic ranges for immunosuppressantdrugs depend upon an individualpatient's current clinical state, type oforgan transplant, time post-transplant,co-administration of other immunosuppressants,and other clinical factors. The results ofthis test should be correlated with additionalclinical and laboratory data before changesin treatment regimens are made. Performed By: #### 1 1253-2 ####FLORINDA Monroe ([id number])[facility] ([facility])[address] [place] [address] CBC panel Auto (Bld)on 03-12 Erythrocyte distribution width (RBC) [Ratio] 13.7 % Normal 11.5-14.5 [facility] Comment on above: Performed By: #### 5 8410-2 ####FLORINDA Monroe ([id number])[facility] ([facility])[address] [place] [address] Hematocrit (Bld) [Volume fraction] 30.4 % Low 41.0-52.0 [facility] Comment on above: Performed By: #### 5 8410-2 ####FLORINDA Monroe ([id number])[facility] ([facility])[address] [place] [address] Hemoglobin (Bld) [Mass/Vol] 9.5 g/dL Low 13.5-17.5 [facility] Comment on above: Performed By: #### 5 8410-2 ####FLORINDA Monroe ([id number])[facility] ([facility])[address] [place] [address] MCH (RBC) [Entitic mass] 29.1 pg Normal 26.0-34.0 [facility] Comment on above: Performed By: #### 5 8410-2 ####FLORINDA Monroe ([id number])[facility] ([facility])[address] [place] [address] MCHC (RBC) [Mass/Vol] 31.3 g/dL Low 32.0-36.0 [facility] Comment on above: Performed By: #### 5 8410-2 ####FLORINDA Monroe ([id number])[facility] ([facility])[address] [place] [address] MCV (RBC) [Entitic vol] 93 fL Normal 80-100 [facility] Comment on above: Performed By: #### 5 8410-2 ####FLORINDA Monroe ([id number])[facility] ([facility])[address] [place] [address] Nucleated RBC/100 WBC (Bld) [Ratio] 0.0 /100 WBCs Normal 0.0-0.0 [facility] Comment on above: Performed By: #### 5 8410-2 ####FLORINDA Monroe ([id number])[facility] ([facility])[address] [place] [address] Platelets (Bld) [#/Vol] 100 x10*3/uL Low 150-450 [facility] Comment on above: Performed By: #### 5 8410-2 ####FLORINDA Monroe ([id number])[facility] ([facility])[address] [place] [address] RBC (Bld) [#/Vol] 3.27 x10*6/uL Low 4.50-5.90 [facility] Comment on above: Performed By: #### 5 8410-2 ####FLORINDA Monroe ([id number])[facility] ([facility])[address] [place] [address] WBC (Bld) [#/Vol] 4.2 x10*3/uL Low 4.4-11.3 [facility] Comment on above: Performed By: #### 5 8410-2 ####FLORINDA Monroe ([id number])[facility] ([facility])[address] [place] [address] Calcidiolon 03-12-2024 25-hydroxyvitamin D3 [Mass/Vol] 50 ng/mL Normal 30-100 [facility] Comment on above: Order Comment: Defic iency: < 20 ng/mlInsufficiency: 20-29 ng/mlSufficiency: 30-100 ng/mlThis assay accurately quantifies the sum of Vitamin D3, 25-Hydroxy and Vitamin D2,25-Hydroxy. Performed By: #### 1 989-3 ####FLORINDA Monroe ([id number])[facility] ([facility])[address] [place] [address] Magnesiumon 03-12-2024 Magnesium [Mass/Vol] 1.83 mg/dL Normal 1.60-2.40 [facility] Comment on above: Performed By: #### 1 9123-9 ####FLORINDA Monroe ([id number])[facility] ([facility])[address] [place] [address] Parathyrin.intacton 03-12-20 24 Parathyrin.intact [Mass/Vol] 124.1 pg/mL High 18.5-88.0 [facility] Comment on above: Performed By: #### 2 731-8 ####FLORINDA Monroe ([id number])[facility] ([facility])[address] [place] [address] Proteinon 03-12-2024 Protein Qn (U) 21 mg/dL Normal 5-25 [facility] Comment on above: Performed By: #### 2 7298-9 ####FLORINDA Monroe ([id number])[facility] ([facility])[address] [place] [address] Protein Qn (U)on 03-12-2024 Creatinine (U) [Mass/Vol] 65.8 mg/dL Normal 20.0-370.0 [facility] Comment on above: Performed By: #### 2 7298-9 ####FLORINDA Mnoroe ([id number])[facility] ([facility])[address] [place] [address] Protein/Creatinine (U) [Mass ratio] 0.32 mg/mg Creat High 0.00-0.17 [facility] Comment on above: Performed By: #### 2 7298-9 ####FLORINDA Monroe ([id number])[facility] ([facility])[address] [place] [address] Renal function 2000 panelon 03-12-2024 Albumin BCP dye [Mass/Vol] 3.7 g/dL Normal 3.4-5.0 [facility] Comment on above: Performed By: #### 2 4362-6 ####FLORINDA Monroe ([id number])[facility] ([facility])[address] [place] [address] Anion gap [Moles/Vol] 14 mmol/L Normal 10-20 [facility] Comment on above: Performed By: #### 2 4362-6 ####FLORINDA Monroe ([id number])[facility] ([facility])[address] [place] [address] Calcium [Mass/Vol] 9.5 mg/dL Normal 8.6-10.6 [facility] Comment on above: Performed By: #### 2 4362-6 ####FLORINDA Monroe ([id number])[facility] ([facility])[address] [place] [address] Chloride [Moles/Vol] 110 mmol/L High 98-107 [facility] Comment on above: Performed By: #### 2 4362-6 ####FLORINDA Monroe ([id number])[facility] ([facility])[address] [place] [address] CO2 [Moles/Vol] 21 mmol/L Normal 21-32 [facility] Comment on above: Performed By: #### 2 4362-6 ####FLORINDA TARANGO L ([id number])[facility] ([facility])[address] [place] [address] Creatinine [Mass/Vol] 1.98 mg/dL High 0.50-1.30 [facility] Comment on above: Performed By: #### 2 4362-6 ####FLORINDA TARANGO L ([id number])[facility] ([facility])[address] [place] [address] Glomerular filtration rate/1.73 sq M.predicted 39 mL/min/1.73m*2 Low >60 [facility] Comment on above: Result Comment: Calc ulations of estimated GFR are performed using the 2020 CKD-EPI Study Refit equation without the race variable for the IDMS-Traceable creatinine methods.https://jasn.asnjournals.org/content//ASN. 6671037149 Performed By: #### 2 4362-6 ####FLORINDA Monroe ([id number])[facility] ([facility])[address] [place] [address] Glucose [Mass/Vol] 128 mg/dL High 74-99 [facility] Comment on above: Performed By: #### 2 4362-6 ####FLORINDA Monroe ([id number])[facility] ([facility])[address] [place] [address] Phosphate [Mass/Vol] 2.3 mg/dL Low 2.5-4.9 [facility] Comment on above: Result Comment: The performance characteristics of phosphorus testing in heparinized plasma have been validated by the individual laboratory site where testing is performed. Testing on heparinized plasma is not approved by the FDA; however, such approval is not necessary. Performed By: #### 2 4362-6 ####FLORINDA Monroe ([id number])[facility] ([facility])[address] [place] [address] Potassium [Moles/Vol] 4.6 mmol/L Normal 3.5-5.3 [facility] Comment on above: Performed By: #### 2 4362-6 ####FLORINDA Monroe ([id number])[facility] ([facility])[address] [place] [address] Sodium [Moles/Vol] 140 mmol/L Normal 136-145 [facility] Comment on above: Performed By: #### 2 4362-6 ####FLORINDA Monroe ([id number])[facility] ([facility])[address] [place] [address] Urea nitrogen [Mass/Vol] 22 mg/dL Normal 6-23 [facility] Comment on above: Performed By: #### 2 4362-6 ####FLORINDA Monroe ([id number])[facility] ([facility])[address] [place] [address] Tacrolimuson 03-12-2024 Tacrolimus (Bld) [Mass/Vol] 5.9 ng/mL Normal <=15.0 [facility] Comment on above: Order Comment: NOTE: Result was obtained using achemiluminescent microparticle immunoassay(CMIA) on the [employer] i system.Optimal therapeutic ranges for immunosuppressantdrugs depend upon an individualpatient's current clinical state, type oforgan transplant, time post-transplant,co-administration of other immunosuppressants,and other clinical factors. The results ofthis test should be correlated with additionalclinical and laboratory data before changesin treatment regimens are made. Performed By: #### 1 1253-2 ####FLORINDA Monroe ([id number])[facility] ([facility])[address] [place] [address] [place] ARM ARTERIAL STEVE VAS LABo n 02-26-2024 ARM ARTERIAL STEVE VAS LAB Non-Invasive Vascular Laboratory [facility] Upper Extremity Arterial Duplex Bilateral/Complete Date of service/time: 02/26/2024 8:51:07 AM Name: MR. MARIAN KOCH Date of : 1970 Age: 54 years Gender: M Clinical Indication Arm pain and swelling. History of bilateral dialysis fistula/graft. TECHNIQUE -------- An arterial duplex ultrasound examination was performed, including grayscale imaging and color Doppler and spectral Doppler examination of the below mentioned arteries. FINDINGS -------- RIGHT SIDE Subclavian artery proximal: PSV: 106 cm/s. EDV: 0 cm/s. Multiphasic waveform. Subclavian artery mid: PSV: 74 cm/s. EDV: 0 cm/s. Multiphasic waveform. Subclavian artery distal: PSV: 73 cm/s. EDV: 0 cm/s. Multiphasic waveform. Axillary artery proximal: PSV: 64 cm/s. EDV: 0 cm/s. Multiphasic waveform. Axillary artery mid: PSV: 66 cm/s. EDV: 0 cm/s. Multiphasic waveform. Axillary artery distal: PSV: 72 cm/s. EDV: 0 cm/s. Multiphasic waveform. Brachial artery proximal: PSV: 47 cm/s. EDV: 0 cm/s. Multiphasic waveform. Brachial artery mid: PSV: 39 cm/s. EDV: 0 cm/s. Multiphasic waveform. Brachial artery distal: PSV: 31 cm/s. EDV: 0 cm/s. Multiphasic waveform. Radial artery proximal: PSV: 80 cm/s. EDV: 12 cm/s. Monophasic, high resistive waveform. Radial artery mid: PSV: 83 cm/s. EDV: 18 cm/s. Monophasic, high resistive waveform. Radial artery distal: PSV: 139 cm/s. EDV: 19 cm/s. Monophasic, high resistive waveform. Ulnar artery proximal: PSV: 23 cm/s. EDV: 0 cm/s. Monophasic, high resistive waveform. Ulnar artery mid: PSV: 17 cm/s. EDV: 0 cm/s. Monophasic, high resistive waveform. Ulnar artery distal: PSV: 30 cm/s. EDV: 4 cm/s. Monophasic, high resistive waveform. VESSEL/GRAFT Radial artery wrist: PSV: 113 cm/s. EDV: 21 cm/s. Monophasic, high resistive waveform. LEFT SIDE Subclavian artery proximal: PSV: 123 cm/s. EDV: 0 cm/s. Multiphasic waveform. Subclavian artery mid: PSV: 81 cm/s. EDV: 0 cm/s. Multiphasic waveform. Subclavian artery distal: PSV: 86 cm/s. EDV: 0 cm/s. Multiphasic waveform. Axillary artery proximal: PSV: 68 cm/s. EDV: 0 cm/s. Multiphasic waveform. Axillary artery mid: PSV: 62 cm/s. EDV: 0 cm/s. Multiphasic waveform. Axillary artery distal: PSV: 45 cm/s. EDV: 0 cm/s. Multiphasic waveform. Brachial artery proximal: PSV: 28 cm/s. EDV: 0 cm/s. Multiphasic waveform. VESSEL/GRAFT Radial artery proximal upper arm: PSV: 20 cm/s. EDV: 0 cm/s. Multiphasic waveform. Radial artery mid upper arm: PSV: 0 cm/s. EDV: 0 cm/s. Absent waveform. Radial artery distal upper arm: PSV: 44 cm/s. EDV: 0 cm/s. Multiphasic waveform. Radial artery proximal forearm: PSV: 37 cm/s. EDV: 8 cm/s. Monophasic, intermediate resistive waveform. Radial artery mid forearm: PSV: 54 cm/s. EDV: 9 cm/s. Monophasic, intermediate resistive waveform. Radial artery distal forearm: PSV: 94 cm/s. EDV: 16 cm/s. Monophasic, intermediate resistive waveform. Ulnar artery proximal upper arm: PSV: 79 cm/s. EDV: 12 cm/s. Multiphasic waveform. Ulnar artery mid upper arm: PSV: 80 cm/s. EDV: 13 cm/s. Multiphasic waveform. Ulnar artery distal upper arm: PSV: 81 cm/s. EDV: 0 cm/s. Monophasic, high resistive waveform. Ulnar artery proximal forearm: PSV: 42 cm/s. EDV: 7 cm/s. Monophasic, intermediate resistive waveform. Ulnar artery mid forearm: PSV: 37 cm/s. EDV: 6 cm/s. Monophasic, intermediate resistive waveform. Ulnar artery distal forearm: PSV: 40 cm/s. EDV: 7 cm/s. Monophasic, intermediate resistive waveform. IMPRESSION RIGHT SIDE Subclavian artery : patent . Axillary artery : patent . Brachial artery : plaque noted without evidence of hemodynamically significant stenosis . Calcified vessel wall. Radial artery : plaque noted without evidence of hemodynamically significant stenosis in the forearm. Segment of occlusion at the wrist with reconstitution at the hand. Ulnar artery : plaque noted without evidence of hemodynamically significant stenosis . Calcified, shadowing plaque noted. A non functioning occluded arteriovenous dialysis fistula is noted in the right arm. LEFT SIDE Subclavian artery distal: plaque noted without evidence of hemodynamically significant stenosis . Axillary artery distal: plaque noted without evidence of hemodynamically significant stenosis . Brachial artery proximal upper arm: plaque noted without evidence of hemodynamically significant stenosis . -High brachial bifurcation noted in the proximal upper arm. Radial artery mid upper arm: occluded . Reconstitutes distal upper arm. Multiple collaterals visualized mid/distal upper arm. Calcified shadowing plaque noted. Ulnar artery : plaque noted without evidence of hemodynamically significant stenosis . Calcified shadowing plaque noted. A non functioning occluded arteriovenous dialysis graft is noted i (more content not included)... Normal [facility] ARM VEIN DVT STEVE VAS LABo n 02-26-2024 US ARM VEIN DVT STEVE VAS LAB Non-Invasive Vascular Laboratory [facility] Upper Extremity Venous Duplex Bilateral/Complete Date of service/time: 02/26/2024 9:39:41 AM Name: MR. MARIAN KOCH Date: 1970 Age: 54 years Gender: M Clinical Indication Right arm swelling. Arm pain. TECHNIQUE -------- A venous duplex ultrasound examination was performed, including grayscale imaging with compression maneuvers and color Doppler and spectral Doppler examination with augmentation maneuvers and response to respiration of the below mentioned veins. FINDINGS -------- RIGHT SIDE Internal jugular vein Doppler: retrograde flow. Compression: abnormal. Subclavian vein Doppler: absent flow. Compression: abnormal. Axillary vein Doppler: decreased flow phasicity. Compression: normal. Brachial vein Doppler: normal flow. Compression: normal. Basilic vein Compression: normal. Cephalic vein Compression: normal. LEFT SIDE Internal jugular vein Doppler: normal flow. Compression: normal. Subclavian vein Doppler: normal flow. Compression: normal. Axillary vein Doppler: normal flow. Compression: normal. Brachial vein Doppler: normal flow. Compression: normal. Basilic vein Compression: normal. Cephalic vein Compression: normal. Radial vein Doppler: normal flow. Compression: normal. Ulnar vein Doppler: normal flow. Compression: normal. 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 Retrograde flow noted. 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 No flow visualized proximal vessel. Clinical correlation is advised; deep vein thrombosis of indeterminate age in the subclavian vein. Appears more chronically occluded. Occluded stent proximal vessel. RIGHT SIDE - SUPERFICIAL VEINS Negative for superficial thrombophlebitis in the basilic vein and cephalic vein. Visualized in segments LEFT SIDE - DEEP VEINS Negative for acute deep vein thrombosis. -High brachial bifurcation noted in the proximal upper arm. LEFT SIDE - SUPERFICIAL VEINS Negative for superficial thrombophlebitis in the basilic vein and cephalic vein. Visualized in segments. Technologist: Shanice Zavala RVT, [facility] Ordering physician: MARIA ELENA DOCKERY Interpreting physician: ANALISA Zaidi DO Final CC [employer] [facility] Image : [id number] [email or web address] See Link below for Image Normal [facility] CNOVon 02-11-2024 CNOV Office Visit ([facility] ) MARIAN KOCH ([id number]) 1970 M Date Time Provider Department 02/11/24 10:45 AM KHANH MUSTAFA [facility] [[email or web address]] During your visit today, we recorded the following information about you: Temperature Pulse Respiration Blood pressure 98.6 degrees 76/minute 20/minute 122/70 Weight 65 kg Khanh Mustafa, [employer]ORMY.[employer] PANEL [employer]INTER 02/11/2024 11:54 AM Addendum ASSESSMENT/PLAN: 1. Persistent cough for 3 weeks or longer - ICD9: 786.2, ICD10: R05.3 (primary diagnosis) - XR CHEST 2V FRONTAL/LAT IMPRESSION: Stable radiographic appearance of the chest, as described. Glass Vial Bending Conveyor Feeder: PSCB Transcribe Date/Time: Feb 11 2024 11:24A Dictated by : JOAO CARROLL MD 2. COPD exacerbation (HCC) - ICD9: 491.21, ICD10: J44.1 - AMOXICILLIN 875 MG-POTASSIUM CLAVULANATE 125 MG TABLET - PREDNISONE 10 MG TABLET 3. Swelling of hand - ICD9: 729.81, ICD10: M79.89 - keep hand elevated - consider use of compression sleeve - CONSULT TO VASCULAR SURGERY - Follow-up with your PCP in 3-5 days if symptoms have not improved or sooner if symptoms worsen - Discussed red flags and need for immediate medical evaluation if any occur. - Discussed supportive care treatment with fluids, rest and analgesia. - Discussed expected course of illness Khanh Mustafa APRN.Khanh Rodriguez APRN.CNP 02/11/2024 12:07 PM Signed Subjective Cough Associated symptoms include shortness of breath and wheezing. Pertinent negatives include no chest pain, no chills and no myalgias. Marian Koch is a 53 year old male who presents with cough, shortness of breath x 3 weeks and right hand swelling for months. He has a history of COPD and has been using his inhalers as prescribed. He denies fever. Cough is productive of sputum which is increased in volume and viscosity over his normal. He denies chest pain. Right hand swelling x several months. Has an AV fistula in right arm. He has an appointment for an ultrasound on both arms on 02/25 and is scheduled to see a vascular surgeon at [facility]. He denies pain in the arm; no injury. Review of Systems Constitutional: Negative for chills and fever. Respiratory: Positive for cough, sputum production, shortness of breath and wheezing. Negative for hemoptysis. Cardiovascular: Negative for chest pain. Musculoskeletal: Negative for falls, joint pain and myalgias. See HPI BP 122/70 Pulse 76 Temp 37 ?C (98.6 ?F) Resp 20 Wt 65 kg (143 lb 4.8 oz) SpO2 93% BMI 23.85 kg/m? PAST MEDICAL HISTORY Diagnosis Date CAD [...] not accurate. 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 On Sensipar in remote past. Kidney dialysis 1988, and 2000 Neurogenic bladder VIC (obstructive sleep apnea) 08/04/2011 declines CPAP Pulmonary embolism ([facility]) 10-12 years ago Pulmonary nodules Foreign body reaction in pulmonary vasculature, ? cause. Extensive evaluation ruled out vasculitis, fungal inffection, pneumoconiosis. May have been from gortex graft .Resulted in multiple pulmonary nodules. Radiculopathy, lumbar region 11/28/2016 Renal failure 02/20/2010 Renal failure, chronic, stage 3 (moderate) ([facility]) folllowing renal transplant Renal stones Steroid long-term [...] 2019. ALLERGIES Bee Sting and Darvocet-N 100 (more content not included)... Normal [facility] XR CHEST 2V FRONTAL/LATon XR CHEST 2V FRONTAL/LAT * * *Final Report* * * DATE OF EXAM: Feb 11 2024 11:19AM WOX [id number] - XR CHEST 2V FRONTAL/LAT / PROCEDURE REASON: Persistent cough for 3 weeks or longer * * * * Physician Interpretation * * * * EXAMINATION: CHEST RADIOGRAPH (2 VIEW FRONTAL and LATERAL) CLINICAL HISTORY: Persistent cough for 3 weeks or longer MQ: XC2_6 EXAM DATE/TIME: 02/11/2024 11:19 AM COMPARISON: Chest x-ray dated December 30, 2023 RESULT: Lines, tubes, and devices: Right subclavian vascular stent present. Lungs and pleura: Stable radiographic appearance of the chest with bilateral calcified pleural plaques. Stable blunting of the bilateral costophrenic sulci which may be related to chronic pleural thickening or chronic trace bilateral pleural effusions. No radiographic evidence of new airspace consolidation. Cardiomediastinal silhouette: Stable cardiomediastinal silhouette with postsurgical changes from median sternotomy. Bones and soft tissues: Degenerative changes are present within the thoracic spine. IMPRESSION: Stable radiographic appearance of the chest, as described. Glass Vial Bending Conveyor Feeder: RADHA Transcribe Date/Time: Feb 11 2024 11:24A Dictated by : JOAO CARROLL MD This examination was interpreted and the report reviewed and electronically signed by: JOAO CARROLL MD on Feb 11 2024 11:26AM EST [id number] Normal [facility] XR Chest PA and Lateralon IMPRESSION: Stable radiographic appearance of the chest, as described. Glass Vial Bending Conveyor Feeder: [facility] Transcribe Date/Time: Feb 11 2024 11:24A Dictated by : JOAO CARROLL MD This examination was interpreted and the report reviewed and electronically signed by: JOAO CARROLL MD on Feb 11 2024 11:26AM EST DIVISION OF RADIOLOGY * * *Final Report* * * DATE OF EXAM: Feb 11 2024 11:19AM WOX [id number] - XR CHEST 2V FRONTAL/LAT / PROCEDURE REASON: Persistent cough for 3 weeks or longer * * * * Physician Interpretation * * * * EXAMINATION: CHEST RADIOGRAPH (2 VIEW FRONTAL & LATERAL) CLINICAL HISTORY: Persistent cough for 3 weeks or longer MQ: XC2_6 EXAM DATE/TIME: 02/11/2024 11:19 AM COMPARISON: Chest x-ray dated December 30, 2023 RESULT: Lines, tubes, and devices: Right subclavian vascular stent present. Lungs and pleura: Stable radiographic appearance of the chest with bilateral calcified pleural plaques. Stable blunting of the bilateral costophrenic sulci which may be related to chronic pleural thickening or chronic trace bilateral pleural effusions. No radiographic evidence of new airspace consolidation. Cardiomediastinal silhouette: Stable cardiomediastinal silhouette with postsurgical changes from median sternotomy. Bones and soft tissues: Degenerative changes are present within the thoracic spine. DIVISION OF RADIOLOGY Provider, [facility] - 02/11/2024 * * *Final Report* * * DATE OF EXAM: Feb 11 2024 11:19AM WOX [id number] - XR CHEST 2V FRONTAL/LAT / PROCEDURE REASON: Persistent cough for 3 weeks or longer * * * * Physician Interpretation * * * * EXAMINATION: CHEST RADIOGRAPH (2 VIEW FRONTAL & LATERAL) CLINICAL HISTORY: Persistent cough for 3 weeks or longer MQ: XC2_6 EXAM DATE/TIME: 02/11/2024 11:19 AM COMPARISON: Chest x-ray dated December 30, 2023 RESULT: Lines, tubes, and devices: Right subclavian vascular stent present. Lungs and pleura: Stable radiographic appearance of the chest with bilateral calcified pleural plaques. Stable blunting of the bilateral costophrenic sulci which may be related to chronic pleural thickening or chronic trace bilateral pleural effusions. No radiographic evidence of new airspace consolidation. Cardiomediastinal silhouette: Stable cardiomediastinal silhouette with postsurgical changes from median sternotomy. Bones and soft tissues: Degenerative changes are present within the thoracic spine. IMPRESSION IMPRESSION: Stable radiographic appearance of the chest, as described. Glass Vial Bending Conveyor Feeder: RADHA Transcribe Date/Time: Feb 11 2024 11:24A Dictated by : JOAO CARROLL MD This examination was interpreted and the report reviewed and electronically signed by: JOAO CARROLL MD on Feb 11 2024 11:26AM EST [facility] Radiology Study observation (narrative) [facility] XR Chest PA and LateralOrder ed By: [facility] Provider on 02-11-2024 [facility] CNOVon 02-03-2024 CNOV Office Visit ([facility] ) MARIAN KOCH ([id number]) 1970 M Date Time Provider Department 02/03/24 3:20 PM MARIA ELENA DOCKERY [facility] During your visit today, we recorded the following information about you: Pulse Blood pressure Weight Height 71/minute 122/67 65.4 kg 1.651 m Maria Elena Dockery MD 02/03/2024 5:03 PM Signed Maria Elena Dockery MD Interventional Cardiology [address] [place], [place] [id number] Chief Complaint Patient presents with: Follow Up HISTORY OF PRESENT ILLNESS: Mr. Koch is a 53 year old male seen in my office today for follow-up assessment and management of his cardiac condition patient has very extensive cardiac history with longstanding history of severe three-vessel coronary artery disease and bypass surgery in 2005 quadruple bypass consisted of a ROBERT to the LAD vein graft obtuse marginal vein graft to the ramus and vein graft to the PDA of the right coronary artery he did very well from the cardiac point of view patient had longstanding history of being on dialysis he had failed AV fistula in the left arm and the right arm eventually 14 years ago he had a kidney transplant baseline creatinine is 1.6 he has been off hemodialysis peritoneal dialysis since then maintained on 3 immunosuppressive therapy He denies any angina or chest pain or shortness of breath no signs or symptoms of congestive heart failure his major complaint is swelling in the right arm complaint compared to the left patient had prior history of stenting of the venous system due to venous obstruction in the right arm Cardiac Risk Factors age (male over 45, female over 55), hyperlipidemia, history of smoking, hypertension, immunosuppression . PAST MEDICAL HISTORY Diagnosis Date CAD (coronary [...] both lower extremities (HCC) 08/22/2017 02/05/[address] [place] [address] Jauregui: no stenosis left fem-pop bypass. Unable to get CHEL due to non-compressible vesels11/12/[address] Zavala [facility]: RIGHT: resting CHEL > 1.81, non-compressible arteries; TBI 0.40 = PAD; Right ankle: Moderate disease at rest. Right iliofemoral disease. Severe disease noted, post exercise, by tracings. LEFT SIDE: resting CHEL 1.81, non-compressible vessels, CHEL not accurate. 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 On Sensipar in remote past. Kidney dialysis 1988, and 2000 Neurogenic bladder VIC (obstructive sleep apnea) 08/04/2011 declines CPAP Pulmonary embolism ([facility]) 10-12 years ago Pulmonary nodules Foreign body reaction in pulmonary vasculature, ? cause. Extensive evaluation ruled out vasculitis, fungal inffection, pneumoconiosis. May have been from gortex graft .Resulted in multiple pulmonary nodules. Radiculopathy, lumbar region 11/28/2016 Renal failure 02/20/2010 Renal failure, chronic, stage 3 (moderate) ([facility]) folllowing renal transplant Renal stones Steroid long-term [...] Smoking status: Former Packs/day: 1.25 Years: 15.00 Additional pack years: 0.00 Total pack years: 18.75 Types: Cigarettes Quit date: 09/06/2011 Years since quittin.4 Smokeless tobacco: Current Types: Chew Vaping Use Vaping Use: Never used Substance Use Topics Alcohol use: No Drug use: No ALLERGIES Allergen Reactions Bee Sting Hives, Swelling Darvocet-N 100 [Pro* Hives Medications: Current Outpatient Medications Medication Sig Dispense Refill albuterol HFA (PROVENTIL HFA, VENTOLIN HFA) 90 mcg/actuation inhaler Inhale 2 Puffs as instructed every 6 hours as needed. 6.7 Each 5 tacrolimus (more content not included)... Normal [facility] 36on 01-14-2024 36 1st attempt made by central scheduling on 06/12/23. Final notice letter sent 01/14/24. Normal [facility] CBC panel Auto (Bld)on 01-12 Erythrocyte distribution width (RBC) [Ratio] 14.2 % Normal 11.5-14.5 [facility] Comment on above: Performed By: #### 5 8410-2 ####FLORINDA Monroe ([id number])[facility] ([facility])[address] [place] [address] Hematocrit (Bld) [Volume fraction] 34.5 % Low 41.0-52.0 [facility] Comment on above: Performed By: #### 5 8410-2 ####FLORINDA Monroe ([id number])[facility] ([facility])[address] [place] [address] Hemoglobin (Bld) [Mass/Vol] 10.8 g/dL Low 13.5-17.5 [facility] Comment on above: Performed By: #### 5 8410-2 ####FLORINDA Monroe ([id number])[facility] ([facility])[id number] [place] [address] MCH (RBC) [Entitic mass] 28.8 pg Normal 26.0-34.0 [facility] Comment on above: Performed By: #### 5 8410-2 ####FLORINDA Monroe ([id number])[facility] ([facility])[id number] [place] [address] MCHC (RBC) [Mass/Vol] 31.3 g/dL Low 32.0-36.0 [facility] Comment on above: Performed By: #### 5 8410-2 ####FLORINDA Monroe ([id number])[facility] ([facility])[address] [place] [address] MCV (RBC) [Entitic vol] 92 fL Normal 80-100 [facility] Comment on above: Performed By: #### 5 8410-2 ####FLORINDA Monroe ([id number])[facility] ([facility])[address] [place] [address] Nucleated RBC/100 WBC (Bld) [Ratio] 0.0 /100 WBCs Normal 0.0-0.0 [facility] Comment on above: Performed By: #### 5 8410-2 ####FLORINDA Monroe ([id number])[facility] ([facility])[id number] [place] [address] Platelets (Bld) [#/Vol] 124 x10*3/uL Low 150-450 [facility] Comment on above: Performed By: #### 5 8410-2 ####FLORINDA Monroe ([id number])[facility] ([facility])[address] [place] [address] RBC (Bld) [#/Vol] 3.75 x10*6/uL Low 4.50-5.90 [facility] Comment on above: Performed By: #### 5 8410-2 ####FLORINDA Monroe ([id number])[facility] ([facility])[address] [place] [address] WBC (Bld) [#/Vol] 6.9 x10*3/uL Normal 4.4-11.3 [facility] Comment on above: Performed By: #### 5 8410-2 ####FLORINDA Monroe ([id number])[facility] ([facility])[address] [place] [address] Calcidiolon 01-13-2024 25-hydroxyvitamin D3 [Mass/Vol] 17 ng/mL Low 30-100 [facility] Comment on above: Order Comment: Defic iency: < 20 ng/mlInsufficiency: 20-29 ng/mlSufficiency: 30-100 ng/mlThis assay accurately quantifies the sum of Vitamin D3, 25-Hydroxy and Vitamin D2,25-Hydroxy. Performed By: #### 1 989-3 ####FLORINDA Monroe ([id number])[facility] ([facility])[address] [place] [address] Magnesiumon 01-13-2024 Magnesium [Mass/Vol] 1.82 mg/dL Normal 1.60-2.40 [facility] Comment on above: Performed By: #### 1 9123-9 ####FLORINDA Monroe ([id number])[facility] ([facility])[id number] [place] [address] Parathyrin.intacton 01-13-20 24 Parathyrin.intact [Mass/Vol] 167.1 pg/mL High 18.5-88.0 [facility] Comment on above: Performed By: #### 2 731-8 ####FLORINDA Monroe ([id number])[facility] ([facility])[address] [place] [address] Proteinon 01-13-2024 Protein Qn (U) 6 mg/dL Normal 5-25 [facility] Comment on above: Performed By: #### 2 7298-9 ####FLORINDA Monroe ([id number])[facility] ([facility] [facility])[id number] [place] [address] 36745 Protein Qn (U)on 01-13-2024 Creatinine (U) [Mass/Vol] 31.9 mg/dL Normal 20.0-370.0 [facility] Comment on above: Performed By: #### 2 7298-9 ####FLORINDA Monroe ([id number])[facility] ([facility])[id number] [place] [address] 68643 Protein/Creatinine (U) [Mass ratio] 0.19 mg/mg Creat High 0.00-0.17 [facility] Comment on above: Performed By: #### 2 7298-9 ####FLORINDA Monroe ([id number])[facility] ([facility])[address] [place] [address] [id number] Renal function 2000 panelon 01-13-2024 Albumin BCP dye [Mass/Vol] 4.2 g/dL Normal 3.4-5.0 [facility] Comment on above: Performed By: #### 2 4362-6 ####FLORINDA Monroe ([id number])[facility] ([facility])[id number] [place] [address] 78708 Anion gap [Moles/Vol] 14 mmol/L Normal 10-20 [facility] Comment on above: Performed By: #### 2 4362-6 ####FLORINDA Monroe ([id number])[facility] ([facility])[address] [place] [address] 08896 Calcium [Mass/Vol] 10.2 mg/dL Normal 8.6-10.6 [facility] Comment on above: Performed By: #### 2 4362-6 ####FLORINDA Monroe ([id number])[facility] ([facility])[id number] [place] [address] 96800 Chloride [Moles/Vol] 105 mmol/L Normal 98-107 [facility] Comment on above: Performed By: #### 2 4362-6 ####FLORINDA Monroe ([id number])[facility] ([facility])[address] [place] [address] [place] [address] CO2 [Moles/Vol] 24 mmol/L Normal 21-32 [facility] Comment on above: Performed By: #### 2 4362-6 ####FLORINDA Monroe ([id number])[facility] ([facility])[address] [place] [address] Creatinine [Mass/Vol] 1.57 mg/dL High 0.50-1.30 [facility] Comment on above: Performed By: #### 2 4362-6 ####FLORINDA Monroe ([id number])[facility] ([facility])[address] [place] [address] Glomerular filtration rate/1.73 sq M.predicted 52 mL/min/1.73m*2 Low >60 [facility] Comment on above: Result Comment: Calc ulations of estimated GFR are performed using the 2020 CKD-EPI Study Refit equation without the race variable for the IDMS-Traceable creatinine methods.https://jasn.asnjournals.org/content/early//ASN. 2561183424 Performed By: #### 2 4362-6 ####FLORINDA Monroe ([id number])[facility] ([facility])[address] [place] [address] Glucose [Mass/Vol] 80 mg/dL Normal 74-99 [facility] Comment on above: Performed By: #### 2 4362-6 ####FLORINDA Monroe ([id number])[facility] ([facility])[address] [place] [address] Phosphate [Mass/Vol] 3.2 mg/dL Normal 2.5-4.9 [facility] Comment on above: Result Comment: The performance characteristics of phosphorus testing in heparinized plasma have been validated by the individual laboratory site where testing is performed. Testing on heparinized plasma is not approved by the FDA; however, such approval is not necessary. Performed By: #### 2 4362-6 ####FLORINDA Monroe ([id number])[facility] ([facility])[address] [place] [address] Potassium [Moles/Vol] 4.8 mmol/L Normal 3.5-5.3 [facility] Comment on above: Performed By: #### 2 4362-6 ####FLORINDA Monroe ([id number])[facility] ([facility])[address] [place] [address] Sodium [Moles/Vol] 138 mmol/L Normal 136-145 [facility] Comment on above: Performed By: #### 2 4362-6 ####FLORINDA Monroe ([id number])[facility] ([facility])[address] [place] [address] Urea nitrogen [Mass/Vol] 23 mg/dL Normal 6-23 [facility] Comment on above: Performed By: #### 2 4362-6 ####FLORINDA Monroe ([id number])[facility] ([facility])[address] [place] [address] Tacrolimuson 01-13-2024 Tacrolimus (Bld) [Mass/Vol] 5.2 ng/mL Normal <=15.0 [facility] Comment on above: Order Comment: NOTE: Result was obtained using achemiluminescent microparticle immunoassay(CMIA) on the Systems Software Developer i system.Optimal therapeutic ranges for immunosuppressantdrugs depend upon an individualpatient's current clinical state, type oforgan transplant, time post-transplant,co-administration of other immunosuppressants,and other clinical factors. The results ofthis test should be correlated with additionalclinical and laboratory data before changesin treatment regimens are made. Performed By: #### 1 1253-2 ####FLORINDA Monroe ([id number])[facility] ([facility])[address] [place] [address] 36on 01-02-2024 36 LVM and provided pat ient with CS number and Vascular's number so he can call and schedule his PVR testing and/or we can schedule it for him if he calls the office. Normal [facility] CNOVon 01-02-2024 CNOV Office Visit (UCWSTR ) ZEEMARIAN BRADSHAW ([id number]) 1970 M Date Time Provider Department 01/02/24 9:15 AM [facility] During your visit today, we recorded the following information about you: Temperature Pulse Respiration Blood pressure 97.3 degrees 67/minute 16/minute 122/68 Weight 65.5 kg Jackie Mares 01/02/2024 10:26 AM Addendum Subjective Pain (foot) Pertinent negatives include no fever, itching or tingling. Pt presents to clinic on January 02, 2024 for CC left foot pain since Saturday- worsening Disrupted sleep- was up all night last night due to pain 10/10 aching pain when walking on left foot- pain in ball of heal and radiates to the left lateral edge of foot and into left 5th metatarsal States every one keeps telling me this is gout Meds: tylenol- did not help Tried heating pad- did not use ice No fall or injury to foot Cannot apply full pressure onto foot- limping 7/10 pain at rest No fracture or surgery to this foot in the past. Review of Systems Constitutional: Negative for chills, diaphoresis, fever and malaise/fatigue. Musculoskeletal: Negative for falls, joint pain and myalgias. Pain localized to heal of left foot Skin: Negative for itching and rash. Neurological: Negative for dizziness, tingling, focal weakness, weakness and headaches. BP 122/68 Pulse 67 Temp 36.3 ?C (97.3 ?F) Resp 16 Wt 65.5 kg (144 lb 6.4 oz) SpO2 98% BMI 24.03 kg/m? PAST MEDICAL HISTORY Diagnosis Date CAD (coronary artery disease) 02/20/2010 Inactive since CABG. Last heart cath 2006, Dr. Demarco Summers 06/14/15 Lexiscan nuclear stress: no ischemia. Normal L and R sizes and systolic function. EF 56% 10/01/17ech. RV size NL, RVSF ocardiogram Dr. Dameon Sheffield: LV size NL, mild concenric LVH, EF 56%. RV size NL. RVSF NL. AI 1-2+ Claudication of both lower extremities ([facility]) 08/22/2017 02/05/19 PVR Johana Jauregui: no stenosis [...] not accurate. 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 On Sensipar in remote past. Kidney dialysis 1988, and 2000 Neurogenic bladder VIC (obstructive sleep apnea) 08/04/2011 declines CPAP Pulmonary embolism ([facility]) 10-12 years ago Pulmonary nodules Foreign body reaction in pulmonary vasculature, ? cause. Extensive evaluation ruled out vasculitis, fungal inffection, pneumoconiosis. May have been from gortex graft .Resulted in multiple pulmonary nodules. Radiculopathy, lumbar region 11/28/2016 Renal failure 02/20/2010 Renal failure, chronic, stage 3 (moderate) ([facility]) folllowing renal transplant Renal stones Steroid long-term [...] Sting and Darvocet-N 100 [Propoxyphene N-Acetaminophen] MEDICATIONS albuterol HFA (PROVENTIL HFA, VENTOLIN HFA) 90 mcg/actuation inhalerInhale 2 Puffs as instructed every 6 hours as needed.Disp: 6.7 EachRfl: 5 tacrolimus ER (ASTAGRAF XL) 1 mg capsuleTake 1 capsule by mouth every 24 hours. 0.5mg dailyDisp: Rfl: ipratropium-albuterol (DUONEB) 0.5 mg-3 mg(2.5 mg base)/3 mL nebuInhale 3 mL as instructed every 6 hours as needed for wheezing/shortness of breath.Disp: 360 mLRfl: 1 gabapentin (NEURONTIN) 300 mg capsuleTake 1 capsule by mouth three times a day for 90 days.Disp: 90 capsuleRfl: 2 omeprazole (PRILOSEC) 40 mg capsuleTake 1 capsule by mouth once daily.Disp: 30 capsuleRfl: 5 sulfamethoxazole-trimethopri m (BACTRIM) 400-80 mg per tabletTake 1 tablet by mouth every afternoon.Disp: Rfl: Fluorouracil 5 % creamAPPLY TO LEFT LOWER LIP 2X DAILY FOR 2 WEEKS. WASH HANDS IMMEDIATELY AFTER APPLYING.Disp: Rfl: alendronate (FOSAMAX) 70 mg tabletTake 1 tablet by mouth one time a week. Take with a full glass of water, on an empty stomach; do NOT l (more content not included)... Normal [facility] XR FOOT 3V AP/LAT/OBL LTon 0 01-02-2024 XR FOOT 3V AP/LAT/OBL LT * * *Final Report* * * DATE OF EXAM: Jan 02 2024 9:53AM WOX 5336 - XR FOOT 3V AP/LAT/OBL LT / PROCEDURE REASON: Foot pain, left * * * * Physician Interpretation * * * * EXAMINATION: XR FOOT 3V AP/LAT/OBL LT CLINICAL HISTORY: Left foot pain Technique: XR FOOT 3V AP/LAT/OBL LT -- LEFT with 3 views on 3 images Comparison: None RESULT: No acute fracture or dislocation. Joint spaces are maintained. Plantar calcaneal spur. Vascular calcifications are noted. IMPRESSION: No acute osseous abnormality Glass Vial Bending Conveyor Feeder: RADHA Transcribe Date/Time: Jan 02 2024 10:03A Dictated by : DREA MISHRA MD This examination was interpreted and the report reviewed and electronically signed by: DREA MISHRA MD on Jan 02 2024 10:05AM EST [id number] Normal [facility] XR Foot - left AP and Latera l and obliqueon 01-02-2024 IMPRESSION: No acute osseous abnormality Glass Vial Bending Conveyor Feeder: RADHA Transcribe Date/Time: Jan 02 2024 10:03A Dictated by : DREA MISHRA MD This examination was interpreted and the report reviewed and electronically signed by: DREA MISHRA MD on Jan 02 2024 10:05AM EST DIVISION OF RADIOLOGY * * *Final Report* * * DATE OF EXAM: Jan 02 2024 9:53AM WOX 5336 - XR FOOT 3V AP/LAT/OBL LT / PROCEDURE REASON: Foot pain, left * * * * Physician Interpretation * * * * EXAMINATION: XR FOOT 3V AP/LAT/OBL LT CLINICAL HISTORY: Left foot pain Technique: XR FOOT 3V AP/LAT/OBL LT -- LEFT with 3 views on 3 images Comparison: None RESULT: No acute fracture or dislocation. Joint spaces are maintained. Plantar calcaneal spur. Vascular calcifications are noted. DIVISION OF RADIOLOGY Provider, [facility] - 01/02/2024 * * *Final Report* * * DATE OF EXAM: Jan 02 2024 9:53AM WOX 5336 - XR FOOT 3V AP/LAT/OBL LT / PROCEDURE REASON: Foot pain, left * * * * Physician Interpretation * * * * EXAMINATION: XR FOOT 3V AP/LAT/OBL LT CLINICAL HISTORY: Left foot pain Technique: XR FOOT 3V AP/LAT/OBL LT -- LEFT with 3 views on 3 images Comparison: None RESULT: No acute fracture or dislocation. Joint spaces are maintained. Plantar calcaneal spur. Vascular calcifications are noted. IMPRESSION IMPRESSION: No acute osseous abnormality Glass Vial Bending Conveyor Feeder: [facility] Transcribe Date/Time: Jan 02 2024 10:03A Dictated by : RDEA MISHRA MD This examination was interpreted and the report reviewed and electronically signed by: DREA MISHRA MD on Jan 02 2024 10:05AM EST [facility] Radiology Study observation (narrative) [facility] XR Foot - left AP and Latera l and obliqueOrdered By: Ccf Provider on 01-02-2024 [facility] CNOVon 12-30-2023 CNOV Office Visit (FAMPWS ) MARIAN KOCH ([id number]) 1970 M Date Time Provider Department 12/30/23 8:20 AM [facility] During your visit today, we recorded the following information about you: Pulse Respiration Blood pressure Weight 72/minute 16/minute 102/80 64.9 kg Diana Tate PA-C 12/30/2023 9:12 AM Signed 53 year old male with c/o 4 week f/u on pneumonia and BP: feels he has fully resolved. No illness sx currently. HTN: Current meds: Patient is compliant with meds Yes Monitors bp at home: No. If yes, readings: Denies side effects: No. Chest pain: No. Dyspnea: No. Edema: No. Palpitations: No. Syncope: No. Headache: No. Dizziness: No. Last 3 Encounter BP Readings: Date: BP: 12/30/2023 162/87[BP desi[ 11/29/2023 126/71[BP desi[ 09/26/2023 110/70 Last 2 Encounter Wt Readings: Date: Wt: 12/30/2023 64.9 kg (143 lb) 11/29/2023 63 kg (139 lb) Cough has resolved, Energy level is still low, at baseline, better from when ill. 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 Discuss SSI- he would qualify under issues with recurrent pneumonia, cardiovascular issues, transplant status. HISTORIES FAMILY HISTORY Problem Relation Age of [...] not accurate. 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 On Sensipar in remote past. Kidney dialysis 1988, and 2000 Neurogenic bladder VIC (obstructive sleep apnea) 08/04/2011 declines CPAP Pulmonary embolism ([facility]) 10-12 years ago Pulmonary nodules Foreign body reaction in pulmonary vasculature, ? cause. Extensive evaluation ruled out vasculitis, fungal inffection, pneumoconiosis. May have been from gortex graft .Resulted in multiple pulmonary nodules. Radiculopathy, lumbar region 11/28/2016 Renal failure 02/20/2010 Renal failure, chronic, stage 3 (moderate) ([facility]) folllowing renal transplant Renal stones Steroid long-term [...] Smoking status: Former Packs/day: 1.25 Years: 15.00 Additional pack years: 0.00 Total pack years: 18.75 Types: Cigarettes Quit date: 09/06/2011 [...] Due to Treatment With Immunosuppressive Medication (Hcc) (Hcc) Coronary Artery Disease of [place] 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 (Hcc) Chronic Pain Syndrome Other Osteo (more content not included)... Normal [facility] XR CHEST 2V FRONTAL/LATon XR CHEST 2V FRONTAL/LAT * * *Final Report* * * DATE OF EXAM: Dec 30 2023 9:21AM WOX 5291 - XR CHEST 2V FRONTAL/LAT / PROCEDURE REASON: Influenza A with pneumonia * * * * Physician Interpretation * * * * EXAMINATION: CHEST RADIOGRAPH (2 VIEW FRONTAL and LATERAL) CLINICAL HISTORY: Influenza A with pneumonia MQ: XC2_6 EXAM DATE/TIME: 12/30/2023 9:21 AM COMPARISON: 12/07/2019 RESULT: Lines, tubes, and devices: Mediastinal wires are in place. Lungs and pleura: Pleural fluid and minimal basilar atelectasis is stable. Calcific pleural plaques are stable. No new significant collapse or consolidation. No pneumothorax Cardiomediastinal silhouette: Stable cardiomediastinal silhouette. Bones and soft tissues: Unremarkable. IMPRESSION: Stable pleural fluid and atelectasis. Stable calcific pleural plaques. No acute process Glass Vial Bending Conveyor Feeder: PSCB Transcribe Date/Time: Dec 30 2023 11:10A Dictated by : FILIPPO NOVA MD This examination was interpreted and the report reviewed and electronically signed by: FILIPPO NOVA MD on Dec 30 2023 11:12AM EST [id number] Normal [facility] XR Chest PA and Lateralon IMPRESSION: Stable pleural fluid and atelectasis. Stable calcific pleural plaques. No acute process Glass Vial Bending Conveyor Feeder: RADHA Transcribe Date/Time: Dec 30 2023 11:10A Dictated by : FILIPPO NOVA MD This examination was interpreted and the report reviewed and electronically signed by: FILIPPO NOVA MD on Dec 30 2023 11:12AM EST DIVISION OF RADIOLOGY * * *Final Report* * * DATE OF EXAM: Dec 30 2023 9:21AM WOX 5291 - XR CHEST 2V FRONTAL/LAT / PROCEDURE REASON: Influenza A with pneumonia * * * * Physician Interpretation * * * * EXAMINATION: CHEST RADIOGRAPH (2 VIEW FRONTAL & LATERAL) CLINICAL HISTORY: Influenza A with pneumonia MQ: XC2_6 EXAM DATE/TIME: 12/30/2023 9:21 AM COMPARISON: 12/07/2019 RESULT: Lines, tubes, and devices: Mediastinal wires are in place. Lungs and pleura: Pleural fluid and minimal basilar atelectasis is stable. Calcific pleural plaques are stable. No new significant collapse or consolidation. No pneumothorax Cardiomediastinal silhouette: Stable cardiomediastinal silhouette. Bones and soft tissues: Unremarkable. DIVISION OF RADIOLOGY Provider, [facility] - 12/30/2023 * * *Final Report* * * DATE OF EXAM: Dec 30 2023 9:21AM WOX 5291 - XR CHEST 2V FRONTAL/LAT / PROCEDURE REASON: Influenza A with pneumonia * * * * Physician Interpretation * * * * EXAMINATION: CHEST RADIOGRAPH (2 VIEW FRONTAL & LATERAL) CLINICAL HISTORY: Influenza A with pneumonia MQ: XC2_6 EXAM DATE/TIME: 12/30/2023 9:21 AM COMPARISON: 12/07/2019 RESULT: Lines, tubes, and devices: Mediastinal wires are in place. Lungs and pleura: Pleural fluid and minimal basilar atelectasis is stable. Calcific pleural plaques are stable. No new significant collapse or consolidation. No pneumothorax Cardiomediastinal silhouette: Stable cardiomediastinal silhouette. Bones and soft tissues: Unremarkable. IMPRESSION IMPRESSION: Stable pleural fluid and atelectasis. Stable calcific pleural plaques. No acute process Glass Vial Bending Conveyor Feeder: PSCB Transcribe Date/Time: Dec 30 2023 11:10A Dictated by : FILIPPO NOVA MD This examination was interpreted and the report reviewed and electronically signed by: FILIPPO NOVA MD on Dec 30 2023 11:12AM EST [facility] Radiology Study observation (narrative) [facility] XR Chest PA and LateralOrder ed By: Ccf Provider on 12-30-2023 [facility] CNOVon 11-29-2023 CNOV Office Visit (FAMPWS ) MARIAN KOCH ([id number]) 1970 Diana Date Time Provider Department 11/29/23 10:00 AM [facility] During your visit today, we recorded the following information about you: Pulse Respiration Blood pressure Weight 79/minute 18/minute 126/71 63 kg Diana Tate PA-C 12/07/2023 1:18 PM Signed Transitional Care Management TCM Eligibility Documentation The following information was gathered during patient outreach TRANSITION CARE MANAGEMENT (TCM) INITIAL CONTACT Fisheries Director Outreach Provider Action/FYI: Needs new eligibility consultant. Asking for rx for gabapentin for his back pain. They were giving it to him while in the hospital. Initial contact with patient post discharge, spoke to patient. Patient identified by name and . TRANSITION CARE MANAGEMENT INITIAL OUTREACH DOCUMENTATION: Date of Outreach: 11/21/2023 Outreach Attempt 1: Contact Made Date of Discharge 11/20/2023 Some recent data might be hidden SUMMARY: -Pt discharged from [facility] on 11/20/23. -Admitted for: Influenza A, COPD Do you have a hospital follow up appointment with your PCP? Appointment on 11/29/23 with Herman Tate. Yes. Remind patient of appointment date, time, and location. If not within 14 calendar days of discharge - please reschedule accordingly. MEDICATIONS: Many patients have questions or concerns about their medications once they are home. Were you prescribed any new medications? Yes If yes, what are those medications? Prednisone 20 mg for 5 days, augmentin for 3 days Were you told to hold any medications? No Were any of your medications discontinued? No Do you have any questions about getting or taking your medications? No Your discharge instructions/After visit Summary (AVS) are important in guiding you through the recovery process. Is there anything I might help you understand? No Do you have all the necessary equipment and supplies at home? Yes Medical records from recent hospitalization: Placed for provider to review Nikki Ramírez Ma PROGRESS NOTE: Mr. Marian Koch is a 53 y/o male c/o Hospital discharge follow up Facility: [facility] Date of admission: 11/15/2023 Date of discharge: 11/20/2023 Consultations: 11/16/[address] Lavell Marin 11/18/[address] Celso Byrd Discharge diagnoses: 1. Acute kidney injury 2. Chronic kidney disease status post transplant, stage IV Medication reconciliation: New prescriptions: Prednisone 20 mg 2 tablets daily x 5 days, #10/0 Amoxicillin clavulanate 875-125 mg tablet twice daily 3 days #6/0 Continued prescriptions: Albuterol 0.083% nebulizer solution every 4 hours as needed, #25/0 Albuterol sulfate inhaler 1 to 2 puffs every 4 hours as needed, #1/2 Prednisone 5 mg p.o. daily Sulfamethoxazole trimethoprim 400-80 mg tablet daily Astagraf XL 0.5 mg capsule extended release 24-hour 2 mg daily Mycophenolate Moffa till 500 mg twice daily Amlodipine 5 mg daily doxazosin 8 mg. daily Omeprazole 20 mg daily AC ASA 81 mg chewable daily Magnesium oxide 400 mg p.o. twice daily Atorvastatin 80 mg daily Carvedilol 2.5 mg p.o. twice daily Hospital course: 11/15/2023 presented to [facility] emergency department with multiple concerns including shortness of breath at rest, fever, chills, muscle aches. 2 days prior to arrival I developed a mild cough followed by fever, chills, muscle aches, worsening shortness of breath, mild wheezing, tested positive for influenza A.. Reported mild sputum production. At that time patient was given breathing treatments and IV steroids with improvement, also given a dose of IV morphine and IV Zofran. VS: 99.6 F-80-28-144/77-80% RA, improved to 92% RA on O2 nasal cannula 5 L/min Physical exam was essentially normal CBC abnormals: RBC 3.39L- Hgb 9.6L- HCT 30.7 L, MCHC 31.3L, RDW 44.0H-PLT 84L, neutrophil percent 74.9, lymph 10.2% L, mono 13.5% H 13.5L, absolute lymphs 0.65 L Crisp 13.5% H, absolute with 0.65L Chemistry abnormals: Potassium 5.4H-AG 4L-BUN 35 H-e2.33h, EGFR 31 L Chest x-ray: Diffuse bronchial wall thickening with streaky airspace opacities in mid and lower lung Admission assessment and plan: 1. Influenza A, mild COPD exacerbation with acute hypoxia, suspected CHF exacerbation with influenza positive on admission, abnormal chest x-ray, hypoxia with low-grade fever and mild tachycardia but otherwise hemodynamically stable. Patient was started on IV steroids, scheduled DuoNebs, tablet 640 mg p.o. daily, blood and sputum cultures ordered. Calciu procalcitonin ordered. No antibiotic treatment. 2. CKD stage IV, history of renal transplant x 2 last in 2009: Unsure of baseline. Treating with IV Lasix, monitor BMP daily as well as urine output transplant meds and Bactrim 3. History of coronary artery disease (more content not included)... Normal [facility] CBC panel Auto (Bld)on 10-10 Erythrocyte distribution width (RBC) [Ratio] 13.2 % Normal 11.5-14.5 [facility] [facility] Comment on above: Performed By: #### 5 8410-2 ####FLORINDA Monroe ([id number])[facility] ([facility])[address] [place] [address] Hematocrit (Bld) [Volume fraction] 31.9 % Low 41.0-52.0 [facility] Comment on above: Performed By: #### 5 8410-2 ####FLORINDA Monroe ([id number])[facility] ([facility])[address] [place] [address] Hemoglobin (Bld) [Mass/Vol] 10.2 g/dL Low 13.5-17.5 [facility] Comment on above: Performed By: #### 5 8410-2 ####FLORINDA Monroe ([id number])[facility] ([facility])[address] [place] [address] MCH (RBC) [Entitic mass] 29.4 pg Normal 26.0-34.0 [facility] Comment on above: Performed By: #### 5 8410-2 ####FLORINAD Monroe ([id number])[facility] ([facility])[address] [place] [address] MCHC (RBC) [Mass/Vol] 32.0 g/dL Normal 32.0-36.0 [facility] Comment on above: Performed By: #### 5 8410-2 ####FLORINDA Monroe ([id number])[facility] ([facility])[address] [place] [address] MCV (RBC) [Entitic vol] 92 fL Normal 80-100 [facility] Comment on above: Performed By: #### 5 8410-2 ####FLORINDA Monroe ([id number])[facility] ([facility])[address] [place] [address] Nucleated RBC/100 WBC (Bld) [Ratio] 0.0 /100 WBCs Normal 0.0-0.0 [facility] Comment on above: Performed By: #### 5 8410-2 ####FLORINDA Monroe ([id number])[facility] ([facility])[address] [place] [address] Platelets (Bld) [#/Vol] 117 x10*3/uL Low 150-450 [facility] Comment on above: Performed By: #### 5 8410-2 ####FLORINDA Monroe ([id number])[facility] ([facility])[address] [place] [address] RBC (Bld) [#/Vol] 3.47 x10*6/uL Low 4.50-5.90 [facility] Comment on above: Performed By: #### 5 8410-2 ####FLORINDA Monroe ([id number])[facility] ([facility])[address] [place] [address] WBC (Bld) [#/Vol] 6.1 x10*3/uL Normal 4.4-11.3 [facility] Comment on above: Performed By: #### 5 8410-2 ####FLORINDA Monroe ([id number])[facility] ([facility])[address] [place] [address] Proteinon 10-10-2023 Protein Qn (U) 12 mg/dL Normal 5-25 [facility] Comment on above: Performed By: #### 2 7298-9 ####FLORINDA Monroe ([id number])[facility] ([facility])[address] [place] [address] Protein Qn (U)on 10-10-2023 Creatinine (U) [Mass/Vol] 56.1 mg/dL Normal 20.0-370.0 [facility] Comment on above: Performed By: #### 2 7298-9 ####FLORINDA Monroe ([id number])[facility] ([facility])[address] [place] [address] Protein/Creatinine (U) [Mass ratio] 0.21 mg/mg Creat High 0.00-0.17 [facility] Comment on above: Performed By: #### 2 7298-9 ####FLORINDA TARANGO L ([id number])[facility] ([facility])[address] [place] [address] Renal function 2000 panelon 10-10-2023 Albumin BCP dye [Mass/Vol] 4.1 g/dL Normal 3.4-5.0 [facility] Comment on above: Performed By: #### 2 4362-6 ####FLORINDA Monroe ([id number])[facility] ([facility])[address] [place] [address] Anion gap [Moles/Vol] 12 mmol/L Normal 10-20 [facility] Comment on above: Performed By: #### 2 4362-6 ####FLORINDA TARANGO L ([id number])[facility] ([facility])[address] [place] [address] Calcium [Mass/Vol] 9.7 mg/dL Normal 8.6-10.6 [facility] Comment on above: Performed By: #### 2 4362-6 ####FLORINDA TARANGO L ([id number])[facility] ([facility])[address] [place] [address] Chloride [Moles/Vol] 108 mmol/L High 98-107 [facility] Comment on above: Performed By: #### 2 4362-6 ####FLORINDA TARANGO L ([id number])[facility] ([facility])[address] [place] [address] CO2 [Moles/Vol] 24 mmol/L Normal 21-32 [facility] Comment on above: Performed By: #### 2 4362-6 ####FLORINDA Monroe ([id number])[facility] ([facility])[address] [place] [address] Creatinine [Mass/Vol] 1.80 mg/dL High 0.50-1.30 [facility] Comment on above: Performed By: #### 2 4362-6 ####FLORINDA TARANGO L ([id number])[facility] ([facility])[address] [place] [address] GFR/1.73 sq M.predicted MDRD (S/P/Bld) [Vol rate/Area] 44 mL/min/1.73m*2 Low >60 [facility] Comment on above: Result Comment: Calc ulations of estimated GFR are performed using the 2020 CKD-EPI Study Refit equation without the race variable for the IDMS-Traceable creatinine methods.https://jasn.asnjournals.org/content//ASN. 6891877171 Performed By: #### 2 4362-6 ####FLORINDA Monroe ([id number])[facility] ([facility])[address] [place] [address] Glucose [Mass/Vol] 85 mg/dL Normal 74-99 [facility] Comment on above: Performed By: #### 2 4362-6 ####FLORINDA Monroe ([id number])[facility] ([facility])[address] [place] [address] Phosphate [Mass/Vol] 2.5 mg/dL Normal 2.5-4.9 [facility] Comment on above: Result Comment: The performance characteristics of phosphorus testing in heparinized plasma have been validated by the individual laboratory site where testing is performed. Testing on heparinized plasma is not approved by the FDA; however, such approval is not necessary. Performed By: #### 2 4362-6 ####FLORINDA Monroe ([id number])[facility] ([facility])[address] [place] [address] Potassium [Moles/Vol] 5.0 mmol/L Normal 3.5-5.3 [facility] Comment on above: Performed By: #### 2 4362-6 ####FLORINDA Monroe ([id number])[facility] ([facility])[address] [place] [address] Sodium [Moles/Vol] 139 mmol/L Normal 136-145 [facility] Comment on above: Performed By: #### 2 4362-6 ####FLORINDA Monroe ([id number])[facility] ([facility])[address] [place] [address] Urea nitrogen [Mass/Vol] 32 mg/dL High 6-23 [facility] Comment on above: Performed By: #### 2 4362-6 ####FLORINDA Monroe ([id number])[facility] ([facility])[address] [place] [address] Tacrolimuson 10-10-2023 Tacrolimus (Bld) [Mass/Vol] 8.7 ng/mL Normal <=15.0 [facility] Comment on above: Order Comment: NOTE: Result was obtained using achemiluminescent microparticle immunoassay(CMIA) on the Systems Software Developer i system.Optimal therapeutic ranges for immunosuppressantdrugs depend upon an individualpatient's current clinical state, type oforgan transplant, time post-transplant,co-administration of other immunosuppressants,and other clinical factors. The results ofthis test should be correlated with additionalclinical and laboratory data before changesin treatment regimens are made. Performed By: #### 1 1253-2 ####FLORINDA Monroe ([id number])[facility] ([facility])[address] [place] [address] BD DXA - AXIAL SKELETONon BD DXA - AXIAL SKELETON * * *Final Report* * * DATE OF EXAM: Oct 01 2023 2:29PM PAWEL 0804 - BD DXA - AXIAL SKELETON / PROCEDURE REASON: Other osteoporosis * * * * Physician Interpretation * * * * EXAMINATION: DXA BONE DENSITOMETRY BD DXA - AXIAL SKELETON PATIENT DEMOGRAPHICS: Age: 53 years, Gender: Male SCANNER INFORMATION: DXA Model: [employer] - [employer] C 24067 Date Scanned: 10/01/2023 2:29 PM CLINICAL HISTORY: DIAGNOSTIC Other osteoporosis . RISK FACTORS FOR OSTEOPOROSIS AND ASSOCIATED FRACTURES REPORTED BY THIS PATIENT: Please refer to Bone Health Questionnaire in the EMR CURRENT THERAPY: Please refer to Bone Health Questionnaire in the EMR TECHNICAL LIMITATIONS: None RESULTS: Lumbar spine (L1, L2, L3, L4): 0.802 g/cm2, T-score -2.6, Z-score -2.2 Lumbar spine: 2018: 0.802 g/cm2 Left Femoral Neck: 0.654 g/cm2, T-score -2.0, Z-score -1.2 Left Femoral Neck: 2018: 0.666 g/cm2 Left Total Hip: 0.826 g/cm2, T-score -1.4, Z-score -1.0 Left Total Hip: 2018: 0.858 g/cm2 CHANGE IS STATISTICALLY SIGNIFICANT IN THE SPINE OR HIP IF GREATER THAN OR EQUAL TO 0.04 g/cm2 VERTEBRAL FRACTURE ASSESSMENT Not performed. IMPRESSION: THE LOWEST T-SCORE IS -2.6 IN THE SPINE 1) DIAGNOSIS (based on BMD alone): OSTEOPOROSIS Caution: Medical conditions other than osteoporosis may cause low bone density, such as osteomalacia or renal osteodystrophy. Clinical correlation is necessary. 2) FRACTURE RISK (based on FRAX): 10-year absolute fracture risk: - major osteoporotic fracture = 9.8 % - hip fracture = 1.8 % - A diagnosis of Osteoporosis, a 10 year probability of hip fracture greater than or equal to 3% or a 10 year probability of any major osteoporosis-related fracture greater than or equal to 20% should be considered for treatment. - DXA scanner generated FRAX calculations may slightly differ from online FRAX calculations due to differences in software versions. - All recommendations and calculations are to be considered as guidelines and should not replace sound clinical judgement - Caution: Fracture risk may be increased independent of BMD in patients with corticosteroid use, age greater than 65 years, or a history of prior fragility fracture. RECOMMENDATIONS: Follow-up in 2 years or as clinically indicated. Patients that are taking corticosteroids, are transplant recipients or have hyperparathyroidism should have annual follow-up. Follow-up scans should always be done on the same machine for accurate comparison. FOR MORE INFORMATION ABOUT DIAGNOSIS AND TREATMENT: [facility]abolic [facility] Disease:? www.ccf.org/arthritis/osteo National Osteoporosis Foundation:? www.nof.org International Society of Clinical Densitometry www.iscd.org Glass Vial Bending Conveyor Feeder: RADHA Transcribe Date/Time: Oct 01 2023 2:52P Dictated by : JOAO CARROLL MD This examination was interpreted and the report reviewed and electronically signed by: JOAO CARROLL MD on Oct 01 2023 3:01PM EST [id number] -2.6 Normal [facility] BD DXA TRABECLR BONE SCORE ( TBS)on 10-01-2023 BD DXA TRABECLR BONE SCORE (TBS) * * *Final Report* * * DATE OF EXAM: Oct 01 2023 2:29PM WRB 0801 - BD DXA TRABECLR BONE SCORE (TBS) / PROCEDURE REASON: Other osteoporosis * * * * Physician Interpretation * * * * EXAMINATION: DXA BONE DENSITOMETRY BD DXA - AXIAL SKELETON PATIENT DEMOGRAPHICS: Age: 53 years, Gender: Male SCANNER INFORMATION: DXA Model: [employer] - x.ai C 77666 Date Scanned: 10/01/2023 2:29 PM CLINICAL HISTORY: DIAGNOSTIC Other osteoporosis . RISK FACTORS FOR OSTEOPOROSIS AND ASSOCIATED FRACTURES REPORTED BY THIS PATIENT: Please refer to Bone Health Questionnaire in the EMR CURRENT THERAPY: Please refer to Bone Health Questionnaire in the EMR TECHNICAL LIMITATIONS: None RESULTS: Lumbar spine (L1, L2, L3, L4): 0.802 g/cm2, T-score -2.6, Z-score -2.2 Lumbar spine: 2018: 0.802 g/cm2 Left Femoral Neck: 0.654 g/cm2, T-score -2.0, Z-score -1.2 Left Femoral Neck: 2018: 0.666 g/cm2 Left Total Hip: 0.826 g/cm2, T-score -1.4, Z-score -1.0 Left Total Hip: 2018: 0.858 g/cm2 CHANGE IS STATISTICALLY SIGNIFICANT IN THE SPINE OR HIP IF GREATER THAN OR EQUAL TO 0.04 g/cm2 VERTEBRAL FRACTURE ASSESSMENT Not performed. TBS L1-L4 = 1.211 Degraded microarchitecture. IMPRESSION: THE LOWEST T-SCORE IS -2.6 IN THE SPINE 1) DIAGNOSIS (based on BMD alone): OSTEOPOROSIS Caution: Medical conditions other than osteoporosis may cause low bone density, such as osteomalacia or renal osteodystrophy. Clinical correlation is necessary. 2) FRACTURE RISK (based on FRAX adjusted for TBS): 10-year absolute fracture risk: - major osteoporotic fracture = 11 % - hip fracture = 2.3 % - A diagnosis of Osteoporosis, a 10 year probability of hip fracture greater than or equal to 3% or a 10 year probability of any major osteoporosis-related fracture greater than or equal to 20% should be considered for treatment. - DXA scanner generated FRAX calculations may slightly differ from online FRAX calculations due to differences in software versions. - All recommendations and calculations are to be considered as guidelines and should not replace sound clinical judgement - Caution: Fracture risk may be increased independent of BMD in patients with corticosteroid use, age greater than 65 years, or a history of prior fragility fracture. RECOMMENDATIONS: Follow-up in 2 years or as clinically indicated. Patients that are taking corticosteroids, are transplant recipients or have hyperparathyroidism should have annual follow-up. Follow-up scans should always be done on the same machine for accurate comparison. FOR MORE INFORMATION ABOUT DIAGNOSIS AND TREATMENT: [facility] Metabolic Bone Disease: www.ccf.org/arthritis/osteo National Osteoporosis Foundation: www.nof.org International Society of Clinical Densitometry www.iscd.org Glass Vial Bending Conveyor Feeder: loki Transcribe Date/Time: Oct 09 2023 4:32P Dictated by : JOAO CARROLL MD This examination was interpreted and the report reviewed and electronically signed by: JOAO CARROLL MD on Oct 14 2023 9:31AM EST [id number] -2.6 Normal [facility] CNOVon 09-26-2023 CNOV Office Visit (FAMPWS ) MARIAN KOCH ([id number]) 1970 M Date Time Provider Department 09/26/23 8:20 AM [facility] During your visit today, we recorded the following information about you: Pulse Respiration Blood pressure Weight 64/minute 16/minute 110/70 63.5 kg Diana Tate PA-C 09/26/2023 4:11 PM Signed 53 year old male with c/o here for routine 6 month med follow up Left hip pain, in 08/05/2023 [facility] + home testing Covid19, rx for prednisone. Recovered. Coronary artery disease involving te-moak coronary artery of te-moak heart without angina pectoris (primary encounter diagnosis) [...] Abs Lymph 1.00 - 4.00 k/uL 1.07 Crisp% % 12.8 Abs Crisp <0.87 k/uL 0.63 Eosin% % 2.4 Abs [...] Chronic obstructive pulmonary disease, unspecified copd type (formerly [facility]) Current medications: Albuterol 0.083% nebulizer solution every 4 hours as needed Albuterol HFA 90 mcg per actuation 2 puffs every 4-6 hours Umeclidinium-full Anturol 62.5-25 mcg per actuation 1 inhalation daily No sob or cough, no orthopnea. Recent Covid URI H/o kidney transplant 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ppressive medication (formerly [facility]) (formerly [facility]) Renal failure, chronic, stage 3 (moderate) (formerly [facility]) Hyperparathyroidism (formerly [facility]) Current medications: Alendronate 70 mg once a [...] keeps him awake at night when turning. 8/ (more content not included)... Normal [facility] CNOVon 08-05-2023 CNOV Office Visit (UCWSTR ) ZEEMARIAN Meet ([id number]) 1970 M Date Time Provider Department 08/05/23 3:15 PM TARYN MORRIS [facility] [[email or web address]] During your visit today, we recorded the following information about you: Temperature Pulse Respiration Blood pressure 97.9 degrees 64/minute 18/minute 141/73 Weight 61.6 kg Taryn Morris MD 08/05/2023 3:54 PM Signed Patient presents with: Covid19 Concern: + x6 [...] AI 1-2+ Claudication of both lower extremities ([facility]) 08/22/2017 02/05/19 PVR Johana Jauregui: no stenosis [...] not accurate. 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 On Sensipar in remote past. Kidney dialysis 1988, and 2000 Neurogenic bladder VIC (obstructive sleep apnea) 08/04/2011 declines CPAP Pulmonary embolism ([facility]) 10-12 years ago Pulmonary nodules Foreign body reaction in pulmonary vasculature, ? cause. Extensive evaluation ruled out vasculitis, fungal inffection, pneumoconiosis. May have been from gortex graft .Resulted in multiple pulmonary nodules. Radiculopathy, lumbar region 11/28/2016 Renal failure 02/20/2010 Renal failure, chronic, stage 3 (moderate) ([facility]) folllowing renal transplant Renal stones Steroid long-term [...] ALLERGIES Allergen Reactions Bee Sting Hives, Swelling D (more content not included)... Normal [facility] 36on 05-30-2023 36 Patient scheduled fo r PVR 06/11/23 8:20 @ [address] Left message with prep. Appt reminder mailed. Normal [facility] Office Visiton 05-27-2023 Follow-up visit [id number] Neil Koch R 1970 M Date Provider Department Center 05/27/2023 [id number] SUTTON [facility]OB[facility] None Family History Problem Relation Age of Onset Cancer Father High Blood Pressure Mother Cancer Mother Family Status - Relation Status Age at Father Mother Level of Service:05811 [place] OFFICE/OUTPATIENT ESTABLISHED LOW MDM 20-29 MIN Reason for Visit and Comments: Follow-up [114890] - recall arterial duplex 03/20/23 Normal [facility] Progress Noteon 05-27-2023 Progress Note [facility] Vascular Surgery Follow-up Office Visit CHIEF [...] artery disease) s/p CABG in 2005 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 Chest pain CHF (congestive heart failure) ([facility]) ([facility]) CKD (chronic kidney disease) stage 3, GFR 30-59 ml/min ([facility]) COPD (chronic obstructive pulmonary disease) ([facility]) ESRD (end stage renal disease) ([facility]) s/p renal transplant GERD (gastroesophageal reflux disease) History of blood transfusion History of renal transplant HTN (hypertension) Hx of blood clots hx PE 15 YRS AGO Immunosuppressed status ([facility]) Neurogenic bladder NSTEMI (non-ST elevated myocardial infarction) ([facility]) ([facility]) 12/27/2017 Past Surgical History: Past Surgical History: Procedure Laterality Date BLADDER SURGERY CARDIAC CATHETERIZATION 1992, 2007, 2018 COLONOSCOPY CORONARY ARTERY BYPASS GRAFT 2006 [...] Negative. Allergic/Immunologic: Negative. Neurological: Positive for weakness (bot (more content not included)... Normal [facility] Established Visit (Nephrolog y)on 05-22-2023 Established Visit (Nephrology) Diagnoses/Problems Kidney replaced by transplant (V42.0) (Z94.0) Added by Problem List Migration; 2013-05-01; Moved to [facility] Sep 04 2013 9:10PM Osteopenia of both hips (733.90) (M85.851,M85.852) Orders Dyslipidemia, Kidney replaced by transplant Renew: Atorvastatin Calcium 80 MG Oral Tablet (Lipitor); Take 1 tablet daily HTN (hypertension) Renew: amLODIPine Besylate 5 MG Oral Tablet (Norvasc); Take 1 tablet daily Renew: Carvedilol 25 MG Oral Tablet (Coreg); TAKE 1 TABLET TWICE DAILY Renew: Doxazosin Mesylate 8 MG Oral Tablet; TAKE 1 TABLET DAILY Immunosuppression, Kidney replaced by transplant Renew: Mycophenolate Mofetil 500 MG Oral Tablet; Take 1 tablet twice daily Renew: predniSONE 5 MG Oral Tablet; Take 1 tablet daily Renew: Sulfamethoxazole-Trimethopri m 400-80 MG Oral Tablet; TAKE 1 TABLET DAILY Kidney replaced by transplant Renew: Astagraf XL 1 MG Oral Capsule Extended Release 24 Hour; TAKE 2 CAPSULE Daily Formulary Override Reason: Drug may adversely affect the Patient condition Ultrasound Transplanted Kidney; Status:Canceled; Radiology Cancel Reason: DUPLICATE EXAM Radiologist to Determine Optimal Study : Y What are the patient's signs and symptoms? : rule of obstruction Kidney replaced by transplant, Osteopenia of both hips Xray Bone Density, Dexa 1 or More Sites; Status:Hold For - Scheduling; Requested for:[id number]; Radiologist to Determine Optimal Study : Y What are the patient's signs and symptoms? : rule of obstruction Provider Impressions 1. ESRD S/P kidney transplant - Renal allograft function is stable. Noted elevated creatinine from 1.5 to 2.2. Self cath at home bid, 500-700 cc. Will need to increase frequency and rule out UTI in the setting of elevated creatinine/immunocompromised status. Then repeat lab. -Ensure adequate hydration - Avoid nephrotoxic medications, NSAIDs, and IV contrast. 2. Immunosuppression -Tacrolimus level last check was 4.8 -Goal of tacrolimus trough level at 12 hours is 5-8 -Continue current immunosuppression regimen. No changes. 3. Electrolytes -Acceptable from last lab drawn 4. Hypertension -Home BP had been acceptable -Encourage to monitor home BP -Continue current anti hypertensive medication 5. Bone Mineral Disease/Osteoporosis - Consider DEXA every 2-3 years , defer to PCP 6.Anemia -asymptomatic - Keep Hb > 7 -Monitor Hemoglobin for now - No indications for blood transfusion 7..Health maintenance and vaccination - Flu shot during flu season annually - Cancer screening is up to date per the patient A/P Noted elevated creatinine. Self cath at home bid, 500-700 cc. Will need to increase frequency and rule out UTI in the setting of elevated creatinine/immunocompromised status. Repeat lab on Saturday US with bladder PVR --> ORDERED DEXA Lab on Saturday and can resume lab q 3 months, with UPC ratio add VIT D, PTH to next lab RTC 6 Months Addendum US Tx kidney and PVR reviewed. Continue increased freqency sefl cath (tid) Chief Complaint Patient is here to follow up S/P kidney transplant surgery History of Present Illness This is 53 yo male with h/o [...] Noted elevated creatinine. Self cath at home bid, 500-700 cc. Will need to increase frequency and rule out UTI in the setting of elevated creatinine/immunocompromised status. Denied chest pain, SOB, ROBERTSON, Palpitation. Normal urination and bowel movement. Normal gait and no weakness of arms/legs. No cough, runny nose, sore throat, cold symptoms, or rash. No hearing loss. Normal vision.No problems with his sleep, mood and function. No recent infection, hospitalization, surgery or ER visits. ROS : Review of system (14 systems) was done. See HPI. Otherwise were negative. Past medical Hx, Past Surgical Hx were reviewed. Pertinent history was mentioned in HPI. 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 Normal Lien Enforcement Tobacco Screening.on 023 Fall risk assessment a) No falls within the last year [facility] Work Phone: Tobacco use status CPHS b) No [facility] Work Phone: STREP A MOLECULAR (POC)on Procedural Control Valid [facility] Strep A (POCT) Negative Negative [facility] Vascular US lower extremity arterial duplex left with ABIOrdered By: Guido Jauregui on 03-20-2023 Left arm BP 255 mmHg [employer] Phone: Left Dist Anastomosis EDV 2.5 cm/s [employer] Phone: Left Dist Anastomosis PSV 37.6 cm/s [employer] Phone: Left Dist Outflow EDV 0.0 cm/s [facility] Phone: Left Dist Outflow PSV 45.3 cm/s [facility] Phone: Left dorsalis pedis BP 255 mmHg [employer] Phone: [phone] Left Graft 1 Left to right fem-fem. [facility] Phone: Left Inflow Artery EDV 11.2 cm/s [facility] Phone: Left Inflow Artery PSV 111.5 cm/s [employer] Phone: Left Mid Outflow EDV 5.8 cm/s [facility] Phone: Left Mid Outflow PSV 49.7 cm/s [employer] Phone: Left Outflow Vessel EDV 30.0 cm/s [employer] Phone: Left Outflow Vessel EDV 3.7 cm/s [employer] Phone: Left Outflow Vessel PSV 30.0 cm/s [facility] Phone: Left posterior tibial 255 mmHg [facility] Phone: Left Prox Anastomosis EDV 9.4 cm/s [employer] Phone: Left Prox Anastomosis PSV 84.7 cm/s [facility] Phone: Left Prox Outflow EDV 9.1 cm/s [employer] Phone: [phone] Left Prox Outflow PSV 50.8 cm/s [employer] Phone: [phone] Right arm BP 255 mmHg [employer] Phone: Right dorsalis pedis BP 255 mmHg [employer] Phone: [phone] Right posterior tibial 255 mmHg [facility] Phone: Vascular US lower extremity arterial duplex left with ABIon 03-20-2023 Patent left to right fem-fem bypass graft with normal velocities (low at outflow but increases in proximal FA, distal to outflow). Right side findings: Resting CHEL is non-compressible. Left side findings: Resting CHEL is non-compressible. CHEL Right side findings: Non-compressible resting CHEL. Left side findings: Non-compressible resting CHEL. Right PVR waveforms: Consistent with MILD disease - ankle. Left PVR waveforms: Consistent with MILD disease - ankle. Patient has bilateral UA fistulas, which he notes are no longer functional since his kidney transplant, so pressures were taken at forearm. He mentioned having a recent increase in pain in his hips bilaterally, as well as his right rear thigh and calf. Right proximal femoral artery velocity increased from 30 cm/s at outflow to 54.2 cm/s. Comparison Study The exam was compared to the study performed on 12/19/2021. 1. Patent left to right fem-fem bypass graft with normal velocities. 2. PVR waveforms appear attenuated in the right ankle. 3. PVR waveforms appear attenuated in the left ankle. Press Bucker Details A sawyer scale, color Doppler imaging and spectral Doppler analysis ultrasound was performed. During the study longitudinal and transverse views were obtained. Pulsed wave doppler and pulsed volume recording (PVR) was performed. The exam was performed with the patient in the supine position. Overall the study quality was adequate. Study was technically difficult due to: acoustic shadowing and non-compressible vessels. CV [facility] ECHOon 12-26-2022 Echocardiography Echocardiography Rep ort: Transthoracic Echo [facility] Date of service: 12/26/2022 12:00:23 PM Ordering physician: LEDY IVY Indication: HTN Technologist: Cassidy Simmons [facility] Interpreting physician: Rosa M Foster MD PATIENT: Name: MR. MARIAN KOCH : 1970 Age: 52 years Gender: M History of hypertension, dyslipidemia, coronary artery disease and chronic kidney disease. Previous cardiovascular interventions: CABG (2005) Primary rhythm: sinus. Secondary rhythm: RBBB. Height: 165.10 cm BSA: 1.76 m Weight: 67.59 kg BMI: 24.8 kg/m Heart rate 63 bpm Blood pressure 155/67 mmHg Color Doppler was utilized to interrogate the cardiac valves assessed and spectral Doppler was utilized to determine the flow velocities and pressure gradients reported in this exam. Myocardial strain analysis was performed in this exam to aid in the assessment of cardiac function. MEASUREMENTS: Value Indexed Normal Max aortic dimension 3.5 cm Ao < 3.8 Left atrium diameter 4.5 cm (2D) Left atrial volume 72 ml (biplane A-L) 41 ml/m Logan <= 34 LV ID (diastole) 5.5 cm (2D) 3.12 cm/m LV ID (systole) 4.0 cm (2D) 2.30 cm/m IVS, leaflet tips 1.2 cm (2D) Posterior wall thickness 1.2 cm (2D) Left ventricular mass 283 g (2D) 161 g/m Global peak long strain -15.5 % LV stroke volume 96 ml (2D biplane) LVOT stroke volume 107 ml 62 ml/m LV end diastolic volume 142 ml (2D biplane) 80.4 ml/m 34<=EDVi<75 LV end systolic volume 46 ml (2D biplane) 26.1 ml/m Ejection Fraction 67 % (2D biplane) EF > 52 FINDINGS: LEFT VENTRICLE The left ventricle is mildly dilated. There is mild concentric left ventricular hypertrophy. Left ventricular systolic function is normal. Global LV myocardial strain is borderline abnormal. Grade II left ventricular diastolic dysfunction. Mitral annular lateral E/e': 17.2. Mitral annular septal E/e': 20.9. Wall Motion: All scored segments are normal. RIGHT VENTRICLE The right ventricle is normal in size. Right ventricular systolic function is normal. RV systolic tissue Doppler velocity is 10.2 cm/s. Tricuspid annular displacement is 1.6 cm. Estimated right ventricular systolic pressure is 33 mmHg consistent with normal pulmonary artery pressures. Estimated right atrial pressure is 3 mmHg based on IVC assessment. LEFT ATRIUM The left atrial cavity is mildly dilated. Pulmonary Veins: The pulmonary venous pattern showed blunted systolic flow. RIGHT ATRIUM The right atrial cavity is normal in size. Inferior Vena Cava: The inferior vena cava appears normal measuring 2.0 cm. The vessel decreases greater than 50 percent with inspiration. MITRAL VALVE There is mild mitral annular calcification observed posterior. There is trace mitral valve regurgitation. There is mild thickening. There is mild calcification. The pressure half time is 79 msec. The peak mitral E/A ratio is 1.23. The average mitral E/e' ratio is 19.1. The mitral flow deceleration time is 272 msec. TRICUSPID VALVE The tricuspid valve leaflets are structurally normal. There is trace (trace - 1+) tricuspid valve regurgitation. The hepatic venous pattern showed blunted systolic flow. AORTIC VALVE There is mild aortic valve stenosis caused by calcified valve and restricted opening. There is moderate (2+) aortic valve regurgitation. The vena contracta measures 77 mm. Jet width to LVOT ratio is 3.67. Tricuspid aortic valve. The peak gradient is 23 mmHg (peak velocity = 239.5 cm/s). The mean gradient is 13 mmHg. The LVOT mean velocity is 95.5 cm/s. The LVOT diameter is 2.1 cm. The aortic VTI is 52.2 cm. The mean velocity in the aortic valve is 168.0 cm/s. The dimensionless valve index is 0.59. AV area is 2.05 cm (1.17 cm /m ) by continuity, VTI. The LVOT stroke volume index is 62 ml/m . PULMONIC VALVE The pulmonic valve was not seen or not interrogated. There is trace (trace - 1+) pulmonic valve regurgitation. AORTA The visualized aorta is normal in size. Measurements - Aortic valve annulus 2.1 cm. Mid ascending aorta 3.5 cm. PULMONARY ARTERIES The pulmonary arteries are unseen or not interrogated. INTERATRIAL SEPTUM There is no patent foramen ovale as detected by Doppler. INTERVENTRICULAR SEPTUM There is normal motion of the interventricular septum. PERICARDIUM There is no pericardial effusion. CONCLUSIONS: - Exam indication: HTN - The left ventricle is mildly dilated. There is mild concentric left ventricular hypertrophy. Left ventricular systolic function is normal. EF = 67 5% (2D biplane) Grade II left ventricular diastolic dysfunction. - The right ventricle is normal in size. Right ventricular systolic function is normal. - The left atrial cavity is mildly dilated. - Trivial-1+ tricuspid regurgitation. - There is moderate (2+) aortic valve regurgitation. - There is no patent foramen ovale as detected by (more content not included)... Normal [facility] ECG COMPLETEon 12-16-2022 Atrial Rate 61 BPM [facility] Calculated P [place] 53 degrees [facility] Calculated R [place] -53 degrees [facility] Calculated T [place] -21 degrees [facility] P-R Interval 146 ms [facility] QRS Duration 142 ms [facility] QT Interval 410 ms [facility] QTC Calculation (Bazett) 412 ms [facility] Ventricular Rate 61 BPM [facility] Established Visit (Nephrolog y)on 10-24-2022 Established Visit (Nephrology) Diagnoses/Problems Encounter for preventive health examination (V70.0) (Z00.00) Screening for blood or protein in urine (V82.9) (Z13.89) Immunosuppression (279.9) (D84.9) Kidney replaced by transplant (V42.0) (Z94.0) Added by Problem List Migration; 2013-05-01; Moved to [facility] Sep 04 2013 9:10PM HTN (hypertension) (401.9) (I10) Provider Impressions Marian Arenas is a 52 yo male [...] here to follow up post renal transplant. Has urinary retention issues and following with the urology. Doing straight caths twice a day. No recent UTIs. #Renal allograft function: Slightly impaired but stable with creatinine at baseline 1.5-1.6. Last UPC showed 0.19 g of proteinuria in September2022. Stable electrolytes. Continue to monitor UPC's every 3 months #Immunosuppression: Last tacrolimus levels were 3.4 in September 2022. His Astagraf dose has been increased to 2 mg/day. We will follow-up repeat levels. Continue current dose of MMF and prednisone. Goal tacrolimus around 4-6. #Hemodynamics: Blood pressure controlled. Continue amlodipine, carvedilol, doxazosin #BMD: Recent calcium level slightly elevated to 10.7. Vitamin D levels low. Recently his PCP increased his vitamin D supplementation. We will follow-up repeat PTH and vitamin D levels. Last PTH levels were within normal limits. Consider Sensipar if he has a persistent hypercalcemia #Anemia leukopenia management: Last hemoglobin more than 12. Normal WBC and platelet count. No RICK needs. #Health maintenance: Annual flu shots. Encouraged to get COVID-vaccine series including boosters. Age-appropriate cancer screening with primary care physician. Has been following with urology due to urinary retention issues needing straight caths. Also has been following with the dermatology due to history of for squamous/basal cell skin cancers. No recent episodes of skin cancers. Bone density/DEXA scan every 1 to 2 years with the primary care physician. Labs every 3 months and follow-up in 6 months Chief Complaint post transplant f/u Adult Risk ScreeningThere are no spiritual/cultural practices/values/needs that are important to know Initial Fall Risk Screening: MARIAN has not fallen in the last 6 months. Living Will. Living Will: No living will on file. Healthcare POA: No healthcare proxy on file. Declaration of Mental Health Treatment: No mental health treatment on file. Tobacco Screening: MARIAN uses tobacco. Type(s) of Tobacco: chewing tobacco Domestic Violence Screen: Does not feel threatened or abused physically, emotionally or sexually. Do you feel UNSAFE? The patient feels safe in the home. Depression/Suicide Screening: During the past 2 weeks, the patient has not felt down, depressed or hopeless. During the past 2 weeks, the patient has not felt little interest or pleasure in doing things. He does not have a risk of suicide. He has not had thoughts of harming others. Single alcohol screening question: In the past year the patient has had 5 or more drinks (men) or 4 or more drinks (women)? 0 time(s). Single substance abuse screening question: In the past year the patient has used a recreational drug or used a prescription drug for non-medical reasons? 0 time(s). Nutrition Screening: In the past month, there was not a day when I or anyone in my family went hungry because there was not enough food. Patient Education: The patient denies that they or the person with them has problems with hearing, speaking, seeing, moving around or learning The patient is comfortable filling out medical forms. Food Insecurity: 1. Within the past 12 months, you worried that your food would run out before you got money to buy more: No 2. Within the past 12 months, the food you bought just didn't last and you didn't have money to get more: No History of Present Illness Marian Arenas is a 52 yo male [...] here to follow up post renal transplant. Has been following with the primary care physician regularly for routine screening tests. Since April 2021 he has been doing straight caths twice a day for urinary retention. Seen by urology last year and has been following with them on regular basis. Currently on doxazosin. No recent UTIs. Blood pressure is fairly controlled at home with systolics ranging in (more content not included)... Normal Lien Enforcement Tobacco Screening.on 023 Fall risk assessment a) No falls within the last year [facility] Work Phone: Tobacco use status CPHS a) Yes [facility] Work Phone: CNOVon 05-08-2022 CNOV Office Visit (AKURFL ) MARIAN KOCH ([id number]) 1970 M Date Time Provider Department 05/08/22 3:00 PM KRIS BADILLO During your visit today, we recorded the following information about you: Weight Height 65.8 kg 1.651 m Kris Badillo DO 05/17/2022 12:54 AM Signed [facility] LOCATION: [address] [place] [address] ESTABLISHED PATIENT PATIENT INFO: Marian Koch 52 [...] 83.8 Lymph% (%) Date Value 06/05/2021 10.8 Crisp% (%) Date Value 06/05/2021 5.0 Eosin% (%) Date Value 06/05/2021 0.1 Baso% (%) Date Value 06/05/2021 0.3 Abs Neut (ANC) (k/uL) Date Value 06/05/2021 5.65 Abs Crisp (k/uL) Date Value 06/05/2021 0.34 Abs Eosin [...] Take 1 capsule by mouth twice daily. sulfamethoxazole-trimethopri m (BACTRIM) 400-80 mg ORAL per tablet Take [...] RV size NL. RVSF NL. AI 1-2+ Claudicat (more content not included)... Normal [facility] XR SHOULDER LIMITED 2V AP/TR UE AP LEFTon 05-04-2022 [facility] XR Shoulder - left 2 Viewson 05-04-2022 IMPRESSION: 1. No acute pathology. 2. Tiny radiopaque density again noted projecting over the LEFT shoulder as seen in 2017. Etiology uncertain Glass Vial Bending Conveyor Feeder: RADAH Transcribe Date/Time: May 04 2022 5:02P Dictated by : GENESIS NEWMAN DO This examination was interpreted and the report reviewed and electronically signed by: GENESIS NEWMAN DO on May 04 2022 5:05PM EST ZZZ__NOT_ USE_DIVISIO N OF RADIOLOGY * * *Final Report* * * DATE [...] well-preserved. No fractures or dislocations are seen. ZZZ_DO_NOT_ USE_DIVISIO N OF RADIOLOGY Provider, Rocael Smith - 05/04/2022 * * *Final Report* * * DATE [...] well-preserved. No fractures or dislocations are seen. IMPRESSION IMPRESSION: 1. No acute pathology. 2. Tiny radiopaque density again noted projecting over the LEFT shoulder as seen in 2017. Etiology uncertain Glass Vial Bending Conveyor Feeder: PSCServando Transcribe Date/Time: May 04 2022 5:02P Dictated by : GENESIS NEWMAN DO This examination was interpreted and the report reviewed and electronically signed by: GENESIS NEWMAN DO on May 04 2022 5:05PM [facility] Radiology Study observation (narrative) [facility] XR Shoulder - left 2 ViewsOr dered By: [facility]cf Provider on 05-04-2022 [facility] CNOVon 04-20-2022 CNOV Office Visit (UROLAE ) MARIAN KOCH ([id number]) 1970 Date Time Provider Department 04/20/22 8:00 AM PROC URODYNAMICS UROLAE During your visit today, we recorded the following information about you: Eleni Shaw RN 04/20/2022 7:44 AM Signed POST PROCEDURE INSTRUCTIONS Marian Koch April 20, 2022 ? Increase your fluid intake. ? FOLLOW UP APPOINTMENT: 05/08/22 at 3:00 pm with Kris Badillo DO in the [address] [place] [address] office. ? WHEN TO CALL THE DOCTOR: ? If you develop fever (over 101 degrees) or chills. ? If you cannot urinate or empty your bladder. ? If you develop symptoms of a urinary tract infection such as burning or pain with urination, increased frequency of urination or foul smelling urine ? If you have any other questions or problems. Office phone number; [phone] Eleni Shaw RN 04/20/2022 1:10 PM Addendum Marian Koch [id number] 1970 April 20, 2022 Diagnoses: Urinary Retention [...] Findings: Uroflow : Patient arrived with a machado catheter- No. Patient voided 332.4 ml; Curve: [...] understanding of instructions. Eleni Shaw RN cc: Kris Badillo DO Urodynamic Results Uroflow PVR 350 Flow 7 CMG First sensation 349 Max volume 936 Uninhibited bladder contractions no Leakage no EMG nl Nl compliance UPP not interpreted Leakage MUCP Pressure Flow PVR 475 Flow 9 EMG nl Low detrusor pressure Summary Atonic bladder Celso Godinez Jr, MD Referring Provider: Diana TATE [[id number]] Allergies As of Date: 04/20/2022 Noted Allergy Reaction BEE STING 02/20/2010 4 - Hives 7 - Swelling DARVOCET-N 100 (PROPOXYPHENE N-AC*02/20/2010 4 - Hives Date Reviewed: 04/20/2022 Reviewed by: Eleni Shaw RN - Fully Assessed Reason for Visit: Urinary Retention [228] Cmt: UDS Primary Visit Diagnosis:Benign prostatic hyperplasia with urinary obstruction [N40.1, N13.8] Prescriptions as of 04/26/2022 - CARDURA XL 8 mg 24 hr tablet TAKE 1 TABLET BY MOUTH EVERY DAY WITH BREAKFAST - albuterol HFA (PROAIR HFA) 90 mcg/actuation inhaler Inhale 2 Puffs as instructed every 6 hours as needed. - predniSONE (DELTASONE) 5 mg tablet Take 1 tablet by mouth once daily. - umeclidinium-vilanterol (ANORO ELLIPTA) 62.5-25 mcg/actuation inhaler INHALE 1 INHALATION INSTRUCTED ONCE DAILY. - albuterol (PROVENTIL) 2.5 mg /3 mL (0.083 %) nebulizer solution Use 3 mL via nebulizer every 4 hours as needed for Wheezing/Shortness of Breath. Use over 5-15minutes. - gabapentin (NEURONTIN) 300 mg capsule Take 2 capsules by mouth three times daily for 180 days. - ASTAGRAF XL 0.5 mg capsule Take 1 mg by mouth once daily. - alendronate (FOSAMAX) 70 mg tablet Take 1 tablet by mouth once each week. Take with a full glass of water, on an empty stomach; do NOT lie down for 30minutes. - DULoxetine (CYMBALTA) 30 mg capsule Take 1 capsule by mouth once daily. - amLODIPine (NORVASC) 5 mg tablet Take 5 mg by mouth once daily. - atorvastatin (LIPITOR) 80 mg tablet Take 80 mg by mouth daily at bedtime. (more content not included)... Normal [facility] Falls Screening (Age 18+)on 04-18-2022 Adult depression screening assessment No [facility] Work Phone: Fall risk assessment a) No falls within the last year [facility] Work Phone: CNOVon 03-06-2022 OV Office Visit (MAXI ) MARIAN KOCH ([id number]) 1970 M Date Time Provider Department 03/06/22 3:00 PM KRIS BADILLO During your visit today, we recorded the following information about you: Blood pressure Weight Height 112/68 63.5 kg 1.651 m Kris Badillo DO 03/06/2022 3:57 PM Signed CYSTOSCOPY PROCEDURE NOTE: Marian Koch is a 52 year old male who presents with urinary retention for cystoscopy. Pt ID verified with patient: Yes Procedure verified with patient: Yes Procedure confirmed with physician and coding support specialist: Yes Sign In History and [...] Sign Out: Sign Out Discussion: Completed Physician: Kris Badillo DO A urinalysis was performed revealing [...] Consider Urolift, if LUCIANO on UDS ? Kris Badillo DO Referring Provider: SAWYER LAWSON [[id number]] Allergies As of Date: 03/06/2022 Noted Allergy Reaction BEE STING 02/20/2010 4 - Hives 7 - Swelling DARVOCET-N 100 (PROPOXYPHENE N-AC*02/20/2010 4 - Hives Date Reviewed: 03/06/2022 Reviewed by: Kris Badillo DO - Fully Assessed Reason for Visit: Urinary Retention [228] Primary Visit Diagnosis:Benign prostatic hyperplasia with urinary obstruction [N40.1, N13.8] Other Visit Diagnosis:Neurogenic bladder [N31.9] Order(s):UA DIP, URINE (POC) [[id number]] Order #: [id number]. #:[id number] US MSR POST-VOID RESID URINE [[id number]] Order #: [id number] URODYNAMICS [[id number]] Order #: [id number] Prescriptions as of 03/06/2022 - Doxazosin (CARDURA XL) 8 mg 24 hr tablet Take 1 tablet by mouth daily with breakfast. - albuterol HFA (PROAIR HFA) 90 mcg/actuation inhaler Inhale 2 Puffs as instructed every 6 hours as needed. - predniSONE (DELTASONE) 5 mg tablet Take 1 tablet by mouth once daily. - umeclidinium-vilanterol (ANORO ELLIPTA) 62.5-25 mcg/actuation inhaler INHALE 1 INHALATION INSTRUCTED ONCE DAILY. - albuterol (PROVENTIL) 2.5 mg /3 mL (0.083 %) nebulizer solution Use 3 mL via nebulizer every 4 hours as needed for Wheezing/Shortness of Breath. Use over 5-15minutes. - gabapentin (NEURONTIN) 300 mg capsule Take 2 capsules by mouth three times daily for 180 days. - ASTAGRAF XL 0.5 mg capsule Take 1 mg by mouth once daily. - alendronate (FOSAMAX) 70 mg tablet Take 1 tablet by mouth once each week. Take with a full glass of water, on an empty stomach; do NOT lie down for 30minutes. - DULoxetine (CYMBALTA) 30 mg capsule Take 1 capsule by mouth once daily. - amLODIPine (NORVASC) 5 mg tablet Take 5 mg by mouth once daily. - atorvastatin (LIPITOR) 80 mg tablet (more content not included)... Normal [facility] CNPNon 03-06-2022 CNPN Telephone (AKURFL) MARIAN KOCH ([id number]) 1970 M Date Time Provider Department 03/06/22 SAWYER LAWSON During your visit today, we recorded the following information about you: Ber Bahena 03/06/2022 10:29 AM Signed Left vm pt needs an appt with any provider for long history of urinary retentiion. Pina Gee 03/06/2022 10:54 AM Signed Patient called in to make an appointment with a provider. He will be seen in [place] today by Dr. Badillo, and is aware he will most likely get a full visit bill from insurance due to being seen in [facility] this morning. Yamilet Gee Allergies As of Date: 03/06/2022 Noted Allergy Reaction BEE STING 02/20/2010 4 - Hives 7 - Swelling DARVOCET-N 100 (PROPOXYPHENE N-AC*02/20/2010 4 - Hives Date Reviewed: 03/06/2022 Reviewed by: Nara Theodore LPN - Fully Assessed Reason for Visit: Appointment [186] Prescriptions as of 03/06/2022 - Doxazosin (CARDURA XL) 8 mg 24 hr tablet Take 1 tablet by mouth daily with breakfast. - albuterol HFA (PROAIR HFA) 90 mcg/actuation inhaler Inhale 2 Puffs as instructed every 6 hours as needed. - predniSONE (DELTASONE) 5 mg tablet Take 1 tablet by mouth once daily. - umeclidinium-vilanterol (ANORO ELLIPTA) 62.5-25 mcg/actuation inhaler INHALE 1 INHALATION INSTRUCTED ONCE DAILY. - albuterol (PROVENTIL) 2.5 mg /3 mL (0.083 %) nebulizer solution Use 3 mL via nebulizer every 4 hours as needed for Wheezing/Shortness of Breath. Use over 5-15minutes. - gabapentin (NEURONTIN) 300 mg capsule Take 2 capsules by mouth three times daily for 180 days. - ASTAGRAF XL 0.5 mg capsule Take 1 mg by mouth once daily. - alendronate (FOSAMAX) 70 mg tablet Take 1 tablet by mouth once each week. Take with a full glass of water, on an empty stomach; do NOT lie down for 30minutes. - DULoxetine (CYMBALTA) 30 mg capsule Take 1 capsule by mouth once daily. - amLODIPine (NORVASC) 5 mg tablet Take 5 mg by mouth once daily. - atorvastatin (LIPITOR) 80 mg tablet Take 80 mg by mouth daily at bedtime. - carvedilol (COREG) 25 mg tablet Take 1 tablet by mouth twice daily with meals. - omeprazole (PRILOSEC) 20 mg capsule Take 20 mg by mouth once daily. - acetaminophen (TYLENOL) 500 mg tablet Take 500 mg by mouth every 8 hours as needed. - mycophenolate mofetil (CELLCEPT) 250 mg capsule Take 500 mg by mouth twice daily. - magnesium oxide 400 mg cap Take 1 capsule by mouth twice daily. - sulfamethoxazole-trimethopri m (BACTRIM) 400-80 mg ORAL per tablet Take 1 tablet by mouth once daily. - ASPIRIN 81 MG TAB Take one(1) tablet daily. Problem List As Of Date 03/06/2022 Noted Resolved Renal failure, chronic, stage 3 (moderate) [N18*02/20/2010 CAD (coronary artery disease) [I25.10] 02/20/2010 Dialysis patient [Z99.2] 02/20/2010 11/28/2012 DVT (deep venous thrombosis) ([facility]) [I82.409] 09/28/2010 VIC (obstructive sleep apnea) [G47.33] 08/04/2011 Depression [F32.A] 03/07/2012 H/O kidney transplant [Z94.0] 11/28/2012 GERD (gastroesophageal reflux disease) [K21.9] 03/05/2014 Chronic left-sided low back pain with left-side*06/21/2016 Bilateral leg pain [M79.604, M79.605] 11/28/2016 Iliotibial band syndrome [M76.30] 11/28/2016 Radiculopathy, lumbar region [M54.16] 11/28/2016 Claudication of both lower extremities (HCC) [I*08/22/2017 Neurogenic bladder [N31.9] 12/08/2017 Hyperparathyroidism (HCC) [E21.3] 12/08/2017 Hyperhomocysteinemia (HCC) [E72.11] 12/08/2017 Pulmonary nodules [R91.8] Renal stones [N20.0] RLQ abdominal pain [R10.31] 01/06/2018 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/07/2018 Coronary artery disease of [place] artery of [place]*01/07/2018 Chronic pain syndrome [G89.4] 08/09/2018 Other osteoporosis without current pathological*09/21/2018 Current mild episode of major depressive disord*02/05/2019 COPD (chronic obstructive pulmonary disease) (H*06/09/2021 Mixed hyperlipidemia [E78.2] 06/09/2021 Palpitations [R00.2] 06/09/2021 Screen for colon cancer [Z12.11] 06/09/2021 06/14/2021 Cataracta [H26.9] 03/06/2022 Encounter Status:Closed by BRE ALLRED on 03/06/22 [facility] UA DIP, URINE (POC)on 2021 BILIRUBIN UA (POCT) Negative Negative [facility] CLARITY UA (POCT) Clear [facility] COLOR UA (POCT) Yellow [facility] GLUCOSE UA (POCT) Negative Negative mg/dL [facility] HEMOGLOBIN/BLOOD UA (POCT) Trace-intact Abnormal Negative [facility] KETONE UA (POCT) Negative Negative mg/dL [facility] LEUKOCYTES UA (POCT) Negative Negative [facility] NITRITE UA (POCT) Negative Negative [facility] PH UA (POCT) 7.0 4.5 - 8.0 [facility] Protein Ql (U) 30 mg/dL Abnormal Negative mg/dL [facility] SPECIFIC GRAVITY UA (POCT) 1.010 1.005 - 1.030 [facility] UROBILINOGEN UA (POCT) 0.2 E.U./dL Normal E.U./dL [facility] BILIRUBIN UA (POCT) Negative Negative [facility] CLARITY UA (POCT) Clear [facility] COLOR UA (POCT) Yellow [facility] GLUCOSE UA (POCT) Negative Negative mg/dL [facility] HEMOGLOBIN/BLOOD UA (POCT) Negative Negative [facility] KETONE UA (POCT) Negative Negative mg/dL [facility] LEUKOCYTES UA (POCT) Negative Negative [facility] NITRITE UA (POCT) Negative Negative [facility] PH UA (POCT) 7.0 4.5 - 8.0 [facility] Protein Ql (U) Negative Negative mg/dL [facility] SPECIFIC GRAVITY UA (POCT) 1.015 1.005 - 1.030 [facility] UROBILINOGEN UA (POCT) 0.2 E.U./dL Normal E.U./dL [facility] OCCULT BLD EXAM-DIAGon 02-19 Occult Blood Diagnostic Negative Negative [facility] PSA/PROSTSPECAG DIAGon 02-19 Prostate specific Ag [Mass/Vol] 0.17 ng/mL <2.60 ng/mL [facility] UA DIP, URINE (POC)on 2021 BILIRUBIN UA (POCT) Negative Negative [facility] CLARITY [facility]POCT[facility] COLOR UA (POCT) Yellow [facility] GLUCOSE UA (POCT) Negative Negative mg/dL [facility] HEMOGLOBIN/BLOOD UA (POCT) Negative Negative [facility] KETONE UA (POCT) Negative Negative mg/dL [facility] LEUKOCYTES UA (POCT) Negative Negative [facility] NITRITE UA (POCT) Negative Negative [facility] PH UA (POCT) 7.0 4.5 - 8.0 [facility] Protein Ql (U) Negative Negative mg/dL [facility] SPECIFIC GRAVITY UA (POCT) 1.015 1.005 - 1.030 [facility] UROBILINOGEN UA (POCT) 0.2 E.U./dL Normal E.U./dL [facility] US PELVIS BLADDERon 02-20-20 [facility] VL Arterial Duplex US Lower Ext Bilateralon 12-19-2021 VL Arterial Duplex US Lower Ext Bilateral [facility]: [id number] ACCESSION EXAM DATE/TIME PROCEDURE ORDERING PROVIDER [id number] 12/19/2021 07:56 EDT VL Arterial Duplex US DANNIEBETHJESUSGUIDO Dylan CPT code 51855 10268 Reason For Exam (VL Arterial Duplex US Lower) Peripheral vascular disease, unspecified Report [facility] Lower Extremity Graft Evaluation Patient Zee : 1970 Study 12/19/2021 Name: Marian Dsouza (51yrs) Date: Patient [id number] Age: 51 Account: [id number] ID: Gender: M Loc: BP: Ordering Physician: Guido Jauregui MD Oven Operator: Francine Mackay RDMS, T Interpreting Physician: Naun Garcia MD Location: [address] Indications: Left to Right Fem-Fem bypass. Yearly follow up. Previous exam 02/07/21 Bilateral leg pain with walking. Conclusions 1. Patent left to right fem-fem bypass graft with normal velocities. 2. PVR waveforms appear attenuated in the right ankle. 3. PVR waveforms appear attenuated in the left ankle. History: Risk factors: Hypertension. Hyperlipidemia. Study data: Lower extremity graft evaluation. Location: Vascular laboratory. Procedure: A vascular evaluation was performed with the patient in the supine position. Images were obtained using a Scyrons vascular ultrasound machine. Ultrasound Report Arterial pressure indices: + + + + +Location +Pressure (REST)*+Comment + + + + + +R brachial+255 +Bilateral UA fistula. BP's taken in FA+ + + + + +L brachial+255 + + + + + + +R DP +255 + + + + + + +R PT +255 + + + + + + +L DP +255 + + + + + + +L PT +255 + + + + + + Arterial flow: + +----- ------+ + + +Location +PSV(cm/sec)+Comment +Graft type + + +----- ------+ + + +L Iprfa-ojiutg-2 +158 +Previous velocity +L fem to R fem+ + + +59. + + + +----- ------+ + + +L Graft-proximal +169 +Previous velocity + + +anastomosis-1 + +112. + + + +----- ------+ + + +L Graft-proximal +90 + +------ --------+ +graft-1 + + + + + +----- ------+ + + +L Graft-mid graft-1 +57 + +------ --------+ + +----- ------+ + + +L Graft-distal +60 + +------ --------+ +graft-1 + + + + + +----- ------+ + + +L Graft-distal +44 + +------ --------+ +anastomosis-1 + + + + + +----- ------+ + + +L Mjbxd-tqbiigo-5 +36 + +------ --------+ + +----- ------+ + + Prepared and electronically signed by Naun Garcia MD 12/19/2021 17:08 Final Dictated: 12/19/2021 5:08 pm Dictating Physician: NAUN GARCIA Signed Date and Time: 12/19/2021 5:08 pm Signed by: NAUN GARCIA Cardiovascular ACCESSION EXAM DATE/TIME PROCEDURE [id number] 12/19/2021 07:56 EDT VL Arterial Duplex US Lower Cardiovascular CPT code 67174 12512 Reason For Exam (VL Arterial Duplex US Lower) Peripheral vascular disease, unspecified Report [facility] Lower Extremity Graft Evaluation Patient Zee, : 1970 Study 12/19/2021 Name: Marian Dsouza (51yrs) Date: Patient [id number] Age: 51 (more content not included)... Normal [facility] Xray Bone Density, Dexa 1 or More Siteson 10-09-2021 DXA Bone [Mass/Area] Bone density Normal -[facility] Work Phone: Falls Risk Screeningon 07-26 Fall risk assessment a) No falls within the last year [facility] [employer] Work Phone: Laboratory - Hematology and Cell countson 07-19-2021 Erythrocyte distribution width (RBC) [Ratio] 13.5 % See Below [facility] [employer] Work Phone: Comment on above: Reference Range: 11. 5 - 14.5 Hematocrit (Bld) [Volume fraction] 36.6 % below low threshold See Below [facility] [employer] Work Phone: Comment on above: Reference Range: 41. 0 - 52.0 Hemoglobin (Bld) [Mass/Vol] 11.4 g/dL below low threshold See Below [facility] [employer] Work Phone: Comment on above: Reference Range: 13. 5 - 17.5 MCHC (RBC) [Mass/Vol] 31.1 g/dL below low threshold See Below [facility] [employer] Work Phone: Comment on above: Reference Range: 32. 0 - 36.0 MCV (RBC) [Entitic vol] 95 fL 80 - 100 [facility] [employer] Work Phone: Platelets (Bld) [#/Vol] 125 10*3/uL below low threshold 150 - 450 [facility] [employer] Work Phone: RBC (Bld) [#/Vol] 3.87 {x10E12/L} below low threshold See Below [facility] [employer] Work Phone: Comment on above: Reference Range: 4.5 0 - 5.90 WBC (Bld) [#/Vol] 6.3 10*3/uL 4.4 - 11.3 [facility] [employer] Work Phone: No Panel Informationon 07-19 0.0 {/100_WBC} 0.0-0.0 [facility] [employer] Work Phone: Renal Function Panelon 07-19 Albumin BCP dye [Mass/Vol] 4.5 g/dL 3.4 - 5.0 [facility] Work Phone: Anion gap [Moles/Vol] 12 mmol/L 10 - 20 [facility] Work Phone: Calcium [Mass/Vol] 10.9 mg/dL above high threshold 8.6 - 10.6 [facility] Work Phone: Chloride [Moles/Vol] 104 mmol/L 98 - 107 [facility] Work Phone: CO2 [Moles/Vol] 25 mmol/L 21 - 32 [facility] Work Phone: Creatinine [Mass/Vol] 1.85 mg/dL above high threshold See Below [facility] Work Phone: Comment on above: Reference Range: 0.5 0 - 1.30 Glucose [Mass/Vol] 91 mg/dL 74 - 99 [facility] Work Phone: Phosphate [Mass/Vol] 3.1 mg/dL 2.5 - 4.9 [facility] Work Phone: Comment on above: The performance susana acteristics of phosphorus testing in heparinized plasma have been validated by the individual laboratory site where testing is performed. Testing on heparinized plasma is not approved by the FDA; however, such approval is not necessary. Potassium [Moles/Vol] 4.4 mmol/L 3.5 - 5.3 [facility] Work Phone: Sodium [Moles/Vol] 137 mmol/L 136 - 145 [facility] Work Phone: Urea nitrogen [Mass/Vol] 24 mg/dL above high threshold 6 - 23 [facility] Work Phone: Renal Function Panel 47 {mL/min/1.73m2} Abnormal >60 [facility] Work Phone: Comment on above: CALCULATIONS OF CHARLIE MATED GFR ARE PERFORMED USING THE MDRD STUDY EQUATION FOR THE IDMS-TRACEABLE CREATININE METHODS. CLIN CHEM 2007;53:766-72 Renal Function Panel 39 {mL/min/1.73m2} Abnormal >60 [facility] Work Phone: Tacrolimuson 07-19-2021 Tacrolimus (Bld) [Mass/Vol] 5.1 ng/mL 2.0 - 15.0 [facility] Work Phone: Comment on above: NOTE: Result was obt ained using a chemiluminescent microparticle immunoassay (CMIA) on the [employer] i system.Optimal therapeutic ranges for immuno-suppressant drugs depend upon an individualpatient's current clinical state, type oforgan transplant, time post-transplant,co-administration of other immunosuppressants,and other clinical factors. The results ofthis test should be correlated with additionalclinical and laboratory data before changesin treatment regimens are made. VL Arterial Duplex US Lower Ext Bilateralon 02-07-2021 VL Arterial Duplex US Lower Ext Bilateral Patient Name: MARIAN KOCH Ultrasound ACCESSION EXAM DATE/TIME PROCEDURE ORDERING PROVIDER [id number] 02/07/2021 14:54 EDT VL Arterial Duplex US GUIDO JAUREGUI Lower CPT code 42678 84369 Reason For Exam (VL Arterial Duplex US Lower) Chronic kidney disease, stage 3 unspecified Report [facility] Lower Extremity Graft Evaluation Patient Zee : 1970 Study 02/07/2021 Name: Marian Dsouza (50yrs) Date: Patient [id number] Age: 50 Account: [id number] ID: Gender: M Loc: BP: Ordering Physician: Guido Jauregui MD Oven Operator: Francine Mackay RDMS, RVT Interpreting Physician: Ganga Griffith M.D. Location: [address] Indications: BLE claudication. Follow up Left to Right Fem-Fem. Conclusions 1. Patent left to right fem-fem bypass graft with normal velocities. 2. Unable to obtain CHEL bilateral due to non-compressible vessels 3. Right ankle Doppler/PVR waveforms moderately diminished 4. Left ankle Doppler/PVR waveforms moderately diminished History: Left lower extremity claudication. Chronic renal failure. Stage 3 Renal TX. Risk factors: Hypertension. Study data: Lower extremity graft evaluation. Location: Vascular laboratory. Procedure: A vascular evaluation was performed with the patient in the supine position. Images were obtained using a Tethis E9 vascular ultrasound machine. The study was technically limited due to calcification. Ultrasound Report Arterial pressure indices: +--------+ +- + +Location+Pressure (REST)*+Comment + +--------+ +- + +R Radial+255 +Fistula-BP taken in Forearm+ +--------+ +- + +L Radial+255 +Fistula-BP taken in Forearm+ +--------+ +- + +R DP +255 + + +--------+ +- + +R PT +255 + + +--------+ +- + +L DP +255 + + +--------+ +- + +L PT +100 + + +--------+ +- + Arterial flow: + ---+ + --+ +Location +PSV(cm/sec)+Graft type + + ---+ + --+ +L Mxfmp-pciboa-9 +59 +L fem to R fem+ + ---+ + --+ +L Graft-proximal anastomosis-1+112 +L fem to R fem+ + ---+ + --+ +L Graft-proximal graft-1 +55 +L fem to R fem+ + ---+ + --+ +L Graft-mid graft-1 +57 +L fem to R fem+ + ---+ + --+ +L Graft-distal graft-1 +74 +L fem to R fem+ + ---+ + --+ +L Graft-distal anastomosis-1 +53 +L fem to R fem+ + ---+ + --+ +L Zvkcn-bgvhxaa-4 +46 +L fem to R fem+ + ---+ + --+ Prepared and electronically signed by Ganga Griffith M.D. 02/07/2021 18:39 Final Dictated: 02/07/2021 6:39 pm Dictating Physician: GANGA GRIFFITH Signed Date and Time: 02/07/2021 6:39 pm Signed by: GANGA GRIFFITH Cardiovascular ACCESSION EXAM DATE/TIME PROCEDURE [id number] 02/07/2021 14:54 EDT VL Arterial Duplex US Lower CPT code 54705 Cardiovascular CPT code 04430 Reason For Exam (VL Arterial Duplex US Lower) Chronic kidney disease, stage 3 unspecified Report [facility] Lower Extremity Graft Evaluation Patient Zee, : 1970 Study 02/07/2021 Name: Marian Dsouza (50yrs) Date: Patient [id number] Age: 50 Account: [id number] ID: Gender: M Loc: BP: Ordering Physician: Guido Jauregui MD Oven Operator: Francine Mackay RDMS, RVT Interpreting Physician: Ganga Griffith M.D. Location: [address] (more content not included)... Normal [facility] VL DUP LOWER EXTREMITY ARTER IES BILATERALOrdered By: Guido Jauregui on 02-07-2021 [facility] Lower Extremity Graft Evaluation Patient Zee, : 1970 Study 02/07/2021 Name: Marian Dsouza (50yrs) Date: Patient [id number] Age: 50 Account: [id number] ID: Gender: Diana Loc: BP: Ordering Physician: Guido Jauregui MD Oven Operator: Francine Mackay RDMS, RVT Interpreting Physician: Ganga Griffith M.D. Location: [address] Indications: BLE claudication. Follow up Left to Right Fem-Fem. Conclusions 1. Patent left to right fem-fem bypass graft with normal velocities. 2. Unable to obtain CHEL bilateral due to non-compressible vessels 3. Right ankle Doppler/PVR waveforms moderately diminished 4. Left ankle Doppler/PVR waveforms moderately diminished History: Left lower extremity claudication. Chronic renal failure. Stage 3 Renal TX. Risk factors: Hypertension. Study data: Lower extremity graft evaluation. Location: Vascular laboratory. Procedure: A vascular evaluation was performed with the patient in the supine position. Images were obtained using a Tethis E9 vascular ultrasound machine. The study was technically limited due to calcification. Arterial pressure indices: +--------+ +- + +Location+Pressure (REST)*+Comment + +--------+ +- + +R Radial+255 +Fistula-BP taken in Forearm+ +--------+ +- + +L Radial+255 +Fistula-BP taken in Forearm+ +--------+ +- + +R DP +255 + + +--------+ +- + +R PT +255 + + +--------+ +- + +L DP +255 + + +--------+ +- + +L PT +100 + + +--------+ +- + Arterial flow: + ---+ + --+ +Location +PSV(cm/sec)+Graft type + + ---+ + --+ +L Hwnvh-nhxjjs-2 +59 +L fem to R fem+ + ---+ + --+ +L Graft-proximal anastomosis-1+112 +L fem to R fem+ + ---+ + --+ +L Graft-proximal graft-1 +55 +L fem to R fem+ + ---+ + --+ +L Graft-mid graft-1 +57 +L fem to R fem+ + ---+ + --+ +L Graft-distal graft-1 +74 +L fem to R fem+ + ---+ + --+ +L Graft-distal anastomosis-1 +53 +L fem to R fem+ + ---+ + --+ +L Kfpwg-kllfvpt-4 +46 +L fem to R fem+ + ---+ + --+ Prepared and electronically signed by Ganga Griffith M.D. 02/07/2021 18:39 [facility] Work Phone: [place], [facility] Incoming Cardiology Results From Keesha/Adam - 02/07/2021 6:39 PM EDT [facility] Lower Extremity Graft Evaluation Patient Zee, : 1970 Study 02/07/2021 Name: Marian Dsouza (50yrs) Date: Patient [id number] Age: 50 Account: [id number] ID: Gender: M Loc: BP: Ordering Physician: Guido Jauregui MD Oven Operator: Francine Mackay RDMS, RVT Interpreting Physician: Ganga Griffith M.D. Location: [address] Indications: BLE claudication. Follow up Left to Right Fem-Fem. Conclusions 1. Patent left to right fem-fem bypass graft with normal velocities. 2. Unable to obtain CHEL bilateral due to non-compressible vessels 3. Right ankle Doppler/PVR waveforms moderately diminished 4. Left ankle Doppler/PVR waveforms moderately diminished History: Left lower extremity claudication. Chronic renal failure. Stage 3 Renal TX. Risk factors: Hypertension. Study data: Lower extremity graft evaluation. Location: Vascular laboratory. Procedure: A vascular evaluation was performed with the patient in the supine position. Images were obtained using a Tethis E9 vascular ultrasound machine. The study was technically limited due to calcification. Arterial pressure indices: +--------+ +- + +Location+Pressure (REST)*+Comment + +--------+ +- + +R Radial+255 +Fistula-BP taken in Forearm+ +--------+ +- + +L Radial+255 +Fistula-BP taken in Forearm+ +--------+ +- + +R DP +255 + + +--------+ +- + +R PT +255 + + +--------+ +- + +L DP +255 + + +--------+ +- + +L PT +100 + + +--------+ +- + Arterial flow: + ---+ + --+ +Location +PSV(cm/sec)+Graft type + + ---+ + --+ +L Kdxfp-hnzfqh-7 +59 +L fem to R fem+ + ---+ + --+ +L Graft-proximal anastomosis-1+112 +L fem to R fem+ + ---+ + --+ +L Graft-proximal graft-1 +55 +L fem to R fem+ + ---+ + --+ +L Graft-mid graft-1 +57 +L fem to R fem+ + ---+ + --+ +L Graft-distal graft-1 +74 +L fem to R fem+ + ---+ + --+ +L Graft-distal anastomosis-1 +53 +L fem to R fem+ + ---+ + --+ +L Lezre-qvhojgz-3 +46 +L fem to R fem+ + ---+ + --+ Prepared and electronically signed by Ganga Griffith M.D. 02/07/2021 18:39 [facility] Work Phone: XR Foot - right AP and Later al and obliqueon 08-20-2020 IMPRESSION: No acute pathology. See discussion Glass Vial Bending Conveyor Feeder: PSCServando Transcribe Date/Time: Aug 20 2020 8:35P Dictated by : GENESIS NEWMAN DO This examination was interpreted and the report reviewed and electronically signed by: GENESIS NEWMAN DO on Aug 20 2020 8:37PM [facility] DIV[facility] * * *Final Report* * * DATE OF EXAM: Aug 20 2020 11:05AM [id number] - XR FOOT 3V AP/LAT/OBL RT / PROCEDURE REASON: Foot pain, right * * * * Physician Interpretation * * * * RIGHT foot EXAM DATE/TIME: 08/20/2020 11:05 AM HISTORY: 50 years old Clinical information: Foot pain, right Right dorsal forefoot and great toe pain around the MCP joint after dropping a laptop on it approx 1 week ago. TECHNIQUE: Images: XR FOOT 3V AP/LAT/OBL RT Comparison: None. RESULT: Findings: Prominent vascular calcification is seen in the soft tissues. There is a small anterior heel spur. Small defect in the heel the calcaneus probably due to remote trauma Bone density appears well-preserved. Small area of irregularity along the medial aspect of base of the proximal phalanx of great toe probably due to remote trauma No fractures or dislocations are seen. DIVISION OF RADIOLOGY Provider, Rocael Smith - 08/20/2020 * * *Final Report* * * DATE OF EXAM: Aug 20 2020 11:05AM WOX [id number] - XR FOOT 3V AP/LAT/OBL RT / PROCEDURE REASON: Foot pain, right * * * * Physician Interpretation * * * * RIGHT foot EXAM DATE/TIME: 08/20/2020 11:05 AM HISTORY: 50 years old Clinical information: Foot pain, right Right dorsal forefoot and great toe pain around the MCP joint after dropping a laptop on it approx 1 week ago. TECHNIQUE: Images: XR FOOT 3V AP/LAT/OBL RT Comparison: None. RESULT: Findings: Prominent vascular calcification is seen in the soft tissues. There is a small anterior heel spur. Small defect in the heel the calcaneus probably due to remote trauma Bone density appears well-preserved. Small area of irregularity along the medial aspect of base of the proximal phalanx of great toe probably due to remote trauma No fractures or dislocations are seen. IMPRESSION IMPRESSION: No acute pathology. See discussion Glass Vial Bending Conveyor Feeder: PSCB Transcribe Date/Time: Aug 20 2020 8:35P Dictated by : GENESIS NEWMAN DO This examination was interpreted and the report reviewed and electronically signed by: GENESIS NEWMAN DO on Aug 20 2020 8:37PM EST [facility] Radiology Study observation (narrative) [facility] XR Foot - right AP and Later al and obliqueOrdered By: [facility]cf Provider on 08-20-2020 [facility] VL DUP LOWER EXTREMITY ARTER IES BILATERALon 07-05-2020 [facility] Lower Extremity Graft Evaluation Ordering Physician: Guido Jauregui MD Oven Operator: Estephanie Soriano RVT Interpreting Physician: Naun Garcia MD Location: [address] Indications: Atherosclerosis of [place] arteries. Claudication. Conclusions 1. Patent left to right fem-fem bypass graft with flow turbulence at the inflow anastomosis. 2. PVR waveforms appear attenuated in the right ankle and left ankle. History: Risk factors: Former tobacco use. Hypertension. Hyperlipidemia. Study data: Lower extremity graft evaluation. Location: Vascular laboratory. Procedure: A vascular evaluation was performed with the patient in the supine position. Images were obtained using a Tethis E9 vascular ultrasound machine. Arterial pressure indices: + + --+ +Location +Comment + + + --+ +R brachial+Fistula + + + --+ +L brachial+NC, taken at lower forearm due to previous AVF+ + + --+ +R DP +NC + + + --+ +R PT +NC + + + --+ +L DP +NC + + + --+ +L PT +NC + + + --+ Arterial flow: + + + + -+ + +Location +PSV(cm/sec)+Flow analysis+Comment +Graft type + + + + + -+ + +L +148 + + -+L fem to R + +Nfrlo-kblssm-8 + + + +fem + + + + + -+ + +L +190 +Turbulent + + + +Graft-proximal + + + + + +anastomosis-1 + + + + + + + + + -+ + +L +78 + + -+ + +Graft-proximal + + + + + +graft-1 + + + + + + + + + -+ + +L Graft-mid +88 + + -+ + +graft-1 + + + + + + + + + -+ + +L Graft-distal +87 + +Smooth plaque + + +graft-1 + + +noted along + + + + + +wall of graft.+ + + + + + -+ + +L Graft-distal +61 + + -+ + +anastomosis-1 + + + + + + + + + -+ + +L +61 + + -+ + +Knvlx-nbmsfta-4+ + + + + + + + + -+ + Prepared and electronically signed by Naun Garcia MD 07/05/2020 18:49 [facility] [place], [place], [facility] Cardiology Results From Keesha/Adam - 07/05/2020 6:49 PM EDT [facility] Lower Extremity Graft Evaluation Ordering Physician: Guido Jauregui MD Oven Operator: Estephanie Soriano RVT Interpreting Physician: Naun Garcia MD Location: [place] [address] [address] Indications: Atherosclerosis of te[place] arteries. Claudication. Conclusions 1. Patent left to right fem-fem bypass graft with flow turbulence at the inflow anastomosis. 2. PVR waveforms appear attenuated in the right ankle and left ankle. History: Risk factors: Former tobacco use. Hypertension. Hyperlipidemia. Study data: Lower extremity graft evaluation. Location: Vascular laboratory. Procedure: A vascular evaluation was performed with the patient in the supine position. Images were obtained using a Tethis E9 vascular ultrasound machine. Arterial pressure indices: + + --+ +Location +Comment + + + --+ +R brachial+Fistula + + + --+ +L brachial+NC, taken at lower forearm due to previous AVF+ + + --+ +R DP +NC + + + --+ +R PT +NC + + + --+ +L DP +NC + + + --+ +L PT +NC + + + --+ Arterial flow: + + + + -+ + +Location +PSV(cm/sec)+Flow analysis+Comment +Graft type + + + + + -+ + +L +148 + + -+L fem to R + +Mefvi-krdkar-5 + + + +fem + + + + + -+ + +L +190 +Turbulent + + + +Graft-proximal + + + + + +anastomosis-1 + + + + + + + + + -+ + +L +78 + + -+ + +Graft-proximal + + + + + +graft-1 + + + + + + + + + -+ + +L Graft-mid +88 + + -+ + +graft-1 + + + + + + + + + -+ + +L Graft-distal +87 + +Smooth plaque + + +graft-1 + + +noted along + + + + + +wall of graft.+ + + + + + -+ + +L Graft-distal +61 + + -+ + +anastomosis-1 + + + + + + + + + -+ + +L +61 + + -+ + +Rfpqa-ktpbufr-9+ + + + + + + + + -+ + Prepared and electronically signed by Naun Garcia MD 07/05/2020 18:49 [facility]- JACKLYN RUSSO SPECIAL PROCEDUREon 03-01 Patient Name: MARIAN GOLDEN ---Special Procedures--- Exam Date/Time 03/01/2020 15:09:15 EDT Exam XA Special Angiography Procedure Ordering Physician ROBBIN VEGAS, ANDREAS Oneill Accession Number [id number] Reason For Exam Fistulogram/declot Report Right arm AV graft and central venous angiography and central venous covered stent placement The benefits and risks of the procedure were discussed with the patient. The patient agreed to proceed. Conscious Sedation: An independent trained nurse under my supervision monitored the patient during the procedure and administered three mg of Versed and 200 ug of Fentanyl intravenously. The monitoring time was 75 minutes. Sterile technique was utilized. The skin was cleaned with 2% chlorhexidine. Sterile drapes were placed. I washed my hands prior to the procedure. I wore a cap, mask, sterile gown and sterile gloves during the procedure. Lidocaine was applied for local anesthesia. The right arm AV graft was accessed in the direction of venous outflow using a micropuncture set. A wire was advanced. A 7 Swedish sheath was placed. A Berenstein catheter was advanced over a hydrophilic wire into the draining vein. Contrast was injected. 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 Large collaterals over the right axillary region and chest wall. Focus of thrombus in the right axillary vein. A hydrophilic wire was utilized to cross the stenosis and reach the SVC. 3000 units of heparin was given intravenously. A 6 mm x 8 cm balloon was advanced to the stenosis and angioplasty performed to predilate for a larger balloon. Then a 10 mm x 8 cm high-pressure balloon was advanced to the stenosis and angioplasty performed. A point of contrast extravasation occurred at the junction of the right subclavian vein and right brachiocephalic vein. A 10 mm x 8 cm Covera covered stent was deployed across the subclavian and brachycephalic vein. The stent was expanded using a 8 mm x 8 cm balloon. Contrast injection shows normal flow through the right subclavian and brachycephalic veins into the SVC. An attempted declot of the right arm AV graft was not performed at this time due to the large clot burden and the risk of embolization and occluding the central veins which have just been reopened. The patient does not undergo dialysis. 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 Normal flow was restored through these veins. This should help with the right upper extremity pain and swelling. An attempt at declot of the right arm AV graft was not performed at this time due to the large clot burden and the risk of embolization and occluding the central veins which have just been reopened. The patient does not undergo dialysis. Report Dictated on --- Final --- Dictated: 03/01/2020 3:05 pm Dictating Physician: MD INMAN MALAY Signed Date and Time: 03/01/2020 3:23 pm Signed by: MD INMAN MALAY Transcribed Date and Time: 03/01/2020 3:05 [place], [place], [facility] Incoming Radiology Results From [facility] - 03/01/2020 3:25 PM EDT Patient Name: MARIAN KOCH ---Special Procedures--- Exam Date/Time 03/01/2020 15:09:15 EDT Exam XA Special Angiography Procedure Ordering Physician ROBBIN VEGAS, ANDREAS Oneill Accession Number [id number] Reason For Exam Fistulogram/declot Report Right arm AV graft and central venous angiography and central venous covered stent placement The benefits and risks of the procedure were discussed with the patient. The patient agreed to proceed. Conscious Sedation: An independent trained nurse under my supervision monitored the patient during the procedure and administered three mg of Versed and 200 ug of Fentanyl intravenously. The monitoring time was 75 minutes. Sterile technique was utilized. The skin was cleaned with 2% chlorhexidine. Sterile drapes were placed. I washed my hands prior to the procedure. I wore a cap, mask, sterile gown and sterile gloves during the procedure. Lidocaine was applied for local anesthesia. The right arm AV graft was accessed in the direction of venous outflow using a micropuncture set. A wire was advanced. A 7 Swedish sheath was placed. A Berenstein catheter was advanced over a hydrophilic wire into the draining vein. Contrast was injected. 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 Large collaterals over the right axillary region and chest wall. Focus of thrombus in the right axillary vein. A hydrophilic wire was utilized to cross the stenosis and reach the SVC. 3000 units of heparin was given intravenously. A 6 mm x 8 cm balloon was advanced to the stenosis and angioplasty performed to predilate for a larger balloon. Then a 10 mm x 8 cm high-pressure balloon was advanced to the stenosis and angioplasty performed. A point of contrast extravasation occurred at the junction of the right subclavian vein and right brachiocephalic vein. A 10 mm x 8 cm Covera covered stent was deployed across the subclavian and brachycephalic vein. The stent was expanded using a 8 mm x 8 cm balloon. Contrast injection shows normal flow through the right subclavian and brachycephalic veins into the SVC. An attempted declot of the right arm AV graft was not performed at this time due to the large clot burden and the risk of embolization and occluding the central veins which have just been reopened. The patient does not undergo dialysis. 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 Normal flow was restored through these veins. This should help with the right upper extremity pain and swelling. An attempt at declot of the right arm AV graft was not performed at this time due to the large clot burden and the risk of embolization and occluding the central veins which have just been reopened. The patient does not undergo dialysis. Report Dictated on --- Final --- Dictated: 03/01/2020 3:05 pm Dictating Physician: MD INMAN MALAY Signed Date and Time: 03/01/2020 3:23 pm Signed by: MD INMAN MALAY Transcribed Date and Time: 03/01/2020 3:05 [facility], [place] No Panel Information [facility] Vital Signs Date Time Vital Sign Value Performing Clinician Facility 07-07-2024 14:55-0400 Body mass index (BMI) [Ratio] 22.27 kg/m2 Melissa Suppan CELL MAKER.[employer] Work Phone: [facility] 07-07-2024 14:55-0400 Body weight 60.7 kg Melissa Suppan CELL MAKER.[employer] Work Phone: [facility] 07-07-2024 14:55-0400 Diastolic blood pressure 82 mm[Hg] Melissa Suppan CELL MAKER.[employer] Work Phone: [facility] 07-07-2024 14:55-0400 Heart rate 68 /min Melissa Suppan CELL MAKER.[employer] Work Phone: [facility] 07-07-2024 14:55-0400 Respiratory rate 18 /min Melissa Suppan CELL MAKER.HAR[employer]EL PRINTER Work Phone: [facility] 07-07-2024 14:55-0400 SaO2% (BldA) [Mass fraction] 98 % Melissa Suppan CELL MAKER.HAR[employer]ARD PANEL PRINTER Work Phone: [facility] 07-07-2024 14:55-0400 Systolic blood pressure 154 mm[Hg] Melissa Suppan CELL MAKER.HAR[employer]ARD PANEL PRINTER Work Phone: [facility] 07-03-2024 08:46-0400 Heart rate 65 /min FARZANA DAVIS DO [facility] 07-03-2024 08:23-0400 Blood Pressure Cuff Size FARZANA DAVIS DO [facility] 07-03-2024 08:23-0400 Blood Pressure Location FARZANA DAVIS DO [facility] 07-03-2024 08:23-0400 Blood Pressure Method FARZANA DAVIS DO [facility] 07-03-2024 08:23-0400 Body temperature 98.06 [degF] FARZANA SCHEATZLE DO [facility] 07-03-2024 08:23-0400 Diastolic Blood Pressure Non-Invasive 65 mm[Hg] FARZANA DAVIS DO [facility] 07-03-2024 08:23-0400 Heart rate 63 /min FARZANA YOUNGATZLE DO [facility] 07-03-2024 08:23-0400 Reason For Taking VItal Signs FARZANA KUMARLE DO [facility] 07-03-2024 08:23-0400 Respiratory rate 18 /min FARZANA KUMARLE DO [facility] 07-03-2024 08:23-0400 Systolic Blood Pressure Non-Invasive 122 mm[Hg] FARZANA YOUNGATZJIMMY DO [facility] 07-03-2024 05:26-0400 Blood Pressure Cuff Size FARZANA DAVIS DO [facility] 07-03-2024 05:26-0400 Blood Pressure Location FARZANA DAVIS DO [facility] [place] 07-03-2024 05:26-0400 Blood Pressure Method FARZANA YOUNGATZJIMMY DO [facility] [facility] 07-03-2024 05:26-0400 Body temperature 97.7 [degF] FARZANA DAVIS DO [facility] 07-03-2024 05:26-0400 Diastolic Blood Pressure Non-Invasive 72 mm[Hg] FARZANA HECTORATZLE DO [facility] [place] 07-03-2024 05:26-0400 Heart rate 64 /min FARZANA STACYLE DO [facility] [place] 07-03-2024 05:26-0400 Reason For Taking VItal Signs FARZANA STACYJIMMY DO [facility] 07-03-2024 05:26-0400 Respiratory rate 16 /min FARZANA DAVIS DO [facility] 07-03-2024 05:26-0400 Systolic Blood Pressure Non-Invasive 128 mm[Hg] FARZANA YOUNGATZLE DO [facility] [place] 07-02-2024 16:54-0400 Blood Pressure Method FARZANA YOUNGATZJIMMY DO [facility] 07-02-2024 16:54-0400 Body temperature 97.7 [degF] FARZANA YOUNGATZLE DO [facility] [place] 07-02-2024 16:54-0400 Diastolic Blood Pressure Non-Invasive 86 mm[Hg] FARZANA YOUNGATZLE DO [facility] [place] 07-02-2024 16:54-0400 Heart rate 54 /min FARZANA KUMARLE DO [facility] [place] 07-02-2024 16:54-0400 Reason For Taking VItal Signs FARZANA KUMARLE DO [facility] [place] 07-02-2024 16:54-0400 Respiratory rate 18 /min FARZANA KUMARLE DO [facility] [place] 07-02-2024 16:54-0400 Systolic Blood Pressure Non-Invasive 126 mm[Hg] FARZANA YOUNGATZJIMMY DO [facility] 07-02-2024 10:00-0400 Heart rate 62 /min FARZANA HECTORATZLE DO [facility] [place] 07-02-2024 09:21-0400 Blood Pressure Location FARZANA YOUNGATZLE DO [facility] 07-02-2024 09:21-0400 Body temperature 97.7 [degF] FARZANA YOUNGATZLE DO [facility] 07-02-2024 01:00-0400 Blood Pressure Cuff Size FARZANA YOUNGATZLE DO [facility] 07-02-2024 01:00-0400 Body temperature 98.06 [degF] FARZANA YOUNGATZLE DO [facility] 07-02-2024 01:00-0400 Heart rate 57 /min FARZANA YOUNGATZLE DO [facility] 07-01-2024 06:24-0400 Body weight 64 kg FARZANA YOUNGATZLE DO [facility] 06-29-2024 08:50-0400 Body temperature 98.42 [degF] FARZANA YOUNGATZLE DO [facility] 06-26-2024 18:04-0400 Body height 175.3 cm FARZANA YOUNGATZLE DO [facility] 06-26-2024 18:04-0400 Body weight 63.3 kg FARZANA YOUNGATZLE DO [facility] 06-26-2024 18:04-0400 Body weight 20.6 kg/m2 FARZANA YOUNGATZLE DO [facility] 06-25-2024 15:39-0400 Body height 175.3 cm FARZANA YOUNGATZLE DO [facility] 06-25-2024 15:39-0400 Body weight 63.3 kg FARZANA HECTORATZLE DO [facility] 06-25-2024 15:39-0400 Body weight 20.6 kg/m2 FARZANA YOUNGATZLE DO [facility] [place] 06-15-2024 12:58-0400 Body temperature 37.0 degrees Celsius [facility] Comment on above: Performed By: #### [id number] ####FLORINDA Monroe ([id number])[facility] ([facility])[address] [place] [address] 06-15-2024 12:58-0400 SaO2% (BldA) [Mass fraction] 79 % [facility] Comment on above: Performed By: #### [id number] ####FLORINDA Monroe ([id number])[facility] ([facility])[address] [place], [place] [id number] 06-15-2024 11:00-0400 Body temperature 37.0 degrees Celsius [facility] Comment on above: Performed By: #### [id number] ####FLORINDA Monroe ([id number])[facility] ([facility])[address] [place], [place] [id number] 06-15-2024 11:00-0400 SaO2% (BldA) [Mass fraction] 99 % [facility] Comment on above: Performed By: #### [id number] ####FLORINDA Monroe ([id number])[facility] ([facility])[address] [place], [place] [id number] 06-15-2024 06:16-0400 Body temperature 37.0 degrees Celsius [facility] Comment on above: Performed By: #### [id number] ####FLORINDA Monroe ([id number])[facility] ([facility])[address] [place] [id number] 06-15-2024 06:16-0400 SaO2% (BldA) [Mass fraction] 97 % [facility] Comment on above: Performed By: #### [id number] ####FLORINDA Monroe ([id number])[facility] ([facility])[address] [place] [address] 06-15-2024 05:11-0400 Body temperature 37.0 degrees Celsius [facility] Comment on above: Performed By: #### [id number] ####FLORINDA Monroe ([id number])[facility] ([facility])[address] [place] [address] 06-15-2024 05:11-0400 SaO2% (BldA) [Mass fraction] 77 % [facility] Comment on above: Performed By: #### [id number] ####FLORINDA Monroe ([id number])[facility] ([facility])[address] [place] [address] 06-14-2024 22:43-0400 Body temperature 37.0 degrees Celsius [facility] Comment on above: Performed By: #### [id number] ####FLORINDA Monroe ([id number])[facility] ([facility])[address] [place] [address] 06-14-2024 22:43-0400 SaO2% (BldA) [Mass fraction] 72 % [facility] Comment on above: Performed By: #### [id number] ####FLORINDA Monroe ([id number])[facility] ([facility])[address] [place] [address] 06-14-2024 15:09-0400 Body temperature 37.0 degrees Celsius [facility] Comment on above: Performed By: #### [id number] ####FLORINDA Monroe ([id number])[facility] ([facility])[address] [place], [place] [id number] 06-14-2024 15:09-0400 SaO2% (BldA) [Mass fraction] 73 % [facility] Comment on above: Performed By: #### [id number] ####FLORINDA Monroe ([id number])[facility] ([facility])[address] [place] [address] 06-14-2024 10:39-0400 Body temperature 37.0 degrees Celsius [facility] Comment on above: Performed By: #### [id number] ####FLORINDA Monroe ([id number])[facility] ([facility])[address] [place] [address] 05-25-2024 12:07-0400 Body temperature 37.0 degrees Celsius [facility] Comment on above: Performed By: #### [id number] ####FLORINDA Monroe ([id number])[facility] ([facility])[address] [place] [address] 05-25-2024 12:07-0400 SaO2% (BldA) [Mass fraction] 96 % [facility] Comment on above: Performed By: #### [id number] ####FLORINDA Monroe ([id number])[facility] ([facility])[address] [place] [address] 05-24-2024 16:04-0400 Body temperature 37.0 degrees Celsius [facility] Comment on above: Performed By: #### [id number] ####FLORINDA Monroe ([id number])[facility] ([facility])[address] [place] [address] 05-24-2024 16:04-0400 SaO2% (BldA) [Mass fraction] 99 % [facility] Comment on above: Performed By: #### [id number] ####FLORINDA Monore ([id number])[facility] ([facility])[address] [place] [address] 05-07-2024 15:23-0400 Body height 165.1 cm Jennifer Sutton APRN - HARDBOARD PANEL PRINTER Work Phone: [facility] [employer] 05-07-2024 15:23-0400 Body mass index (BMI) [Ratio] 22.57 kg/m2 Jennifer Sutton CELL MAKER - [employer] PANEL PRINTER Work Phone: [facility] [employer] 05-07-2024 15:23-0400 Body weight 61.51 kg Jennifer Sutton CELL MAKER - [employer]EL PRINTER Work Phone: [facility] [employer] 05-07-2024 15:23-0400 Heart rate 64 /min Jennifer Sutton CELL MAKER - [employer] PANEL PRINTER Work Phone: [facility] [employer] 05-07-2024 15:23-0400 Respiratory rate 18 /min Jennifer Sutton CELL MAKER - [employer] PANEL PRINTER Work Phone: [facility] [employer] Comment on above: 97% 03-31-2024 07:56-0400 Body mass index (BMI) [Ratio] 23.13 kg/m2 NA Tate PA-C Work Phone: [facility] 03-31-2024 07:56-0400 Body weight 63.05 kg NA Tate PA-C Work Phone: [facility] 03-31-2024 07:56-0400 Diastolic blood pressure 83 mm[Hg] NA Tate PA-C Work Phone: [facility] 03-31-2024 07:56-0400 Heart rate 63 /min NA Tate PA-C Work Phone: [facility] 03-31-2024 07:56-0400 Respiratory rate 16 /min NA Tate PA-C Work Phone: [facility] 03-31-2024 07:56-0400 SaO2% (BldA) [Mass fraction] 98 % NA Tate PA-C Work Phone: [facility] 03-31-2024 07:56-0400 Systolic blood pressure 140 mm[Hg] NA Tate PA-C Work Phone: [facility] 02-11-2024 10:50-0400 Body mass index (BMI) [Ratio] 23.85 kg/m2 Khanh Mustafa CELL MAKER.HARDBOARD PANEL PRINTER Work Phone: [facility] 02-11-2024 10:50-0400 Body temperature 98.6 [degF] Khanh Praisler-Wood CELL MAKER.HARDBOARD PANEL PRINTER Work Phone: [facility] 02-11-2024 10:50-0400 Body weight 65 kg Khanh Praisler-Wood CELL MAKER.[facility] Work Phone: [facility] 02-11-2024 10:50-0400 Diastolic blood pressure 70 mm[Hg] Khanh Praisler-Wood CELL MAKER.HARDBOARD PANEL PRINTER Work Phone: [facility] 02-11-2024 10:50-0400 Heart rate 76 /min Khanh Praisler-Wood CELL MAKER.[facility] Work Phone: [facility] 02-11-2024 10:50-0400 Respiratory rate 20 /min Khanh Praisler-Wood CELL MAKER.[facility] Work Phone: [facility] 02-11-2024 10:50-0400 SaO2% (BldA) [Mass fraction] 93 % Khanh Praisler-Wood CELL MAKER.[facility] Work Phone: [facility] 02-11-2024 10:50-0400 Systolic blood pressure 122 mm[Hg] Khanh Praisler-Wood CELL MAKER.[facility] Work Phone: [facility] 02-03-2024 15:16-0400 Body height 165.1 cm Maria Elena Dockery MD Work Phone: [facility] 02-03-2024 15:16-0400 Body mass index (BMI) [Ratio] 24 kg/m2 Maria Elena Dockery MD Work Phone: [facility] 02-03-2024 15:16-0400 Body weight 65.41 kg Maria Elena Dockery MD Work Phone: [facility] 02-03-2024 15:16-0400 Diastolic blood pressure 67 mm[Hg] Maria Elena Dockery MD Work Phone: [facility] 02-03-2024 15:16-0400 Heart rate 71 /min Maria Elena Dockery MD Work Phone: [facility] 02-03-2024 15:16-0400 SaO2% (BldA) [Mass fraction] 98 % Maria Elena Dockery MD Work Phone: [facility] 02-03-2024 15:16-0400 Systolic blood pressure 122 mm[Hg] Maria Elena Dockery MD Work Phone: [facility] 01-15-2024 08:24-0400 Body mass index (BMI) [Ratio] 27.93 kg/m2 Matthew Sellers MD Work Phone: [facility] 01-15-2024 08:24-0400 Body temperature 98.01 [degF] Matthew Sellers MD Work Phone: [facility] 01-15-2024 08:24-0400 Body weight 64.86 kg Matthew Sellers MD Work Phone: [facility] 01-15-2024 08:24-0400 Diastolic blood pressure 67 mm[Hg] Matthew Sellers MD Work Phone: [facility] 01-15-2024 08:24-0400 Heart rate 70 /min Matthew Sellers MD Work Phone: [facility] 01-15-2024 08:24-0400 SaO2% (BldA) [Mass fraction] 98 % Matthew Sellers MD Work Phone: [facility] 01-15-2024 08:24-0400 Systolic blood pressure 165 mm[Hg] Matthew Sellers MD Work Phone: [facility] 12-30-2023 09:01-0400 Diastolic blood pressure 80 mm[Hg] KESHAV Tate PA-C Work Phone: [facility] 12-30-2023 09:01-0400 Systolic blood pressure 102 mm[Hg] NA Tate PA-C Work Phone: [facility] 12-30-2023 08:22-0400 Body weight 64.86 kg NA Tate PA-C Work Phone: [facility] 12-30-2023 08:22-0400 Heart rate 72 /min NA Tate PA-C Work Phone: [facility] 12-30-2023 08:22-0400 Respiratory rate 16 /min NA Tate PA-C Work Phone: [facility] 12-30-2023 08:22-0400 SaO2% (BldA) [Mass fraction] 97 % NA Tate PA-C Work Phone: [facility] 11-29-2023 10:13-0500 Body weight 63.05 kg NA Tate PA-C Work Phone: [facility] 11-29-2023 10:13-0500 Diastolic blood pressure 71 mm[Hg] NA Tate PA-C Work Phone: [facility] 11-29-2023 10:13-0500 Heart rate 79 /min NA Tate PA-C Work Phone: [facility] 11-29-2023 10:13-0500 Respiratory rate 18 /min NA Tate PA-C Work Phone: [facility] 11-29-2023 10:13-0500 SaO2% (BldA) [Mass fraction] 97 % NA Tate PA-C Work Phone: [facility] 11-29-2023 10:13-0500 Systolic blood pressure 126 mm[Hg] NA Tate PA-C Work Phone: [facility] 11-13-2023 08:49-0500 Body mass index (BMI) [Ratio] 27.89 kg/m2 Matthew Sellers MD Work Phone: [facility] 11-13-2023 08:49-0500 Body temperature 98.2 [degF] Matthew Sellers MD Work Phone: [facility] 11-13-2023 08:49-0500 Body weight 64.77 kg Matthew Sellers MD Work Phone: [facility] 11-13-2023 08:49-0500 Diastolic blood pressure 61 mm[Hg] Matthew Sellers MD Work Phone: [facility] 11-13-2023 08:49-0500 Heart rate 66 /min Matthew Sellers MD Work Phone: [facility] 11-13-2023 08:49-0500 SaO2% (BldA) [Mass fraction] 98 % Matthew Sellers MD Work Phone: [facility] 11-13-2023 08:49-0500 Systolic blood pressure 135 mm[Hg] Matthew Sellers MD Work Phone: [facility] 08-05-2023 15:29-0400 Body temperature 97.9 [degF] Taryn Morris MD Work Phone: [facility] 08-05-2023 15:29-0400 Body weight 61.6 kg Taryn Morris MD Work Phone: [facility] 08-05-2023 15:29-0400 Diastolic blood pressure 73 mm[Hg] Taryn Morris MD Work Phone: [facility] 08-05-2023 15:29-0400 Heart rate 64 /min Taryn Morris MD Work Phone: [facility] 08-05-2023 15:29-0400 Respiratory rate 18 /min Taryn Morris MD Work Phone: [facility] 08-05-2023 15:29-0400 SaO2% (BldA) [Mass fraction] 99 % Taryn Morris MD Work Phone: [facility] 08-05-2023 15:29-0400 Systolic blood pressure 141 mm[Hg] Taryn Morris MD Work Phone: [facility] 05-27-2023 09:22-0400 Body height 165.1 cm [employer] CELL MAKER - HARDBOARD PANEL PRINTER Work Phone: [facility] 05-27-2023 09:22-0400 Body mass index (BMI) [Ratio] 23.81 kg/m2 [employer] CELL MAKER - HARDBOARD PANEL PRINTER Work Phone: [facility] 05-27-2023 09:22-0400 Body weight 64.91 kg [employer] CELL MAKER - HARDBOARD PANEL PRINTER Work Phone: [facility] 05-27-2023 09:22-0400 Heart rate 81 /min [employer] CELL MAKER - [employer] Work Phone: [facility] 05-27-2023 09:22-0400 Respiratory rate 18 /min [employer] CELL MAKER - [employer] Work Phone: [facility] Comment on above: 97 % 05-22-2023 15:06-0400 Body height 152.4 cm Dane Ortiz Work Phone: [facility] Work Phone: 05-22-2023 15:06-0400 Body mass index (BMI) [Ratio] 28.06 kg/m2 Dane Ortiz Work Phone: ZA-Rtlnstjrmv-Sze her Work Phone: 05-22-2023 15:06-0400 Body surface area Derived from formula 1.62 m2 Dane Pinodawnsandro Work Phone: MY-Ozfnteoxvu-Rzh her Work Phone: 05-22-2023 15:06-0400 Body temperature 97 [degF] Dane Ortiz Work Phone: EM-Tmkkivlohc-Ydn her Work Phone: 05-22-2023 15:06-0400 Body weight 65.18 kg Fililincoln Bill Work Phone: NH-Wmnkwjwcgj-Ymb her Work Phone: 05-22-2023 15:06-0400 Diastolic blood pressure 77 mm[Hg] Dane Ortiz Work Phone: CD-Liommdonpt-Aqm her Work Phone: 05-22-2023 15:06-0400 Heart rate 66 /min Dane Ortiz Work Phone: ZA-Yeifmzsvax-Bmt her Work Phone: 05-22-2023 15:06-0400 SaO2% (BldA) [Mass fraction] 98 % Dane Ortiz Work Phone: SL-Nhxpcnlmxx-Zrs her Work Phone: 05-22-2023 15:06-0400 Systolic blood pressure 125 mm[Hg] Dane Ortiz Work Phone: KC-Akoseqozni-Jwb her Work Phone: 05-22-2023 15:06-0400 0 1 Dane Ortiz Work Phone: AX-Ohjhgveiuc-Vxj her Work Phone: Comment on above: [employer] 03-20-2023 10:56-0400 Body temperature 100 [degF] Khanh Praisler-Wood CELL MAKER.HARDBOARD PANEL PRINTER Work Phone: [facility] 03-20-2023 10:56-0400 Body weight 69.13 kg Khanh Praisler-Wood CELL MAKER.HARDBOARD PANEL PRINTER Work Phone: [facility] 03-20-2023 10:56-0400 Diastolic blood pressure 64 mm[Hg] Khanh Praisler-Wood CELL MAKER.HARDBOARD PANEL PRINTER Work Phone: [facility] 03-20-2023 10:56-0400 Heart rate 64 /min Khanh Praisler-Wood CELL MAKER.HARDBOARD PANEL PRINTER Work Phone: [facility] 03-20-2023 10:56-0400 Respiratory rate 16 /min Khanh Praisler-Wood CELL MAKER.HARDBOARD PANEL PRINTER Work Phone: [facility] 03-20-2023 10:56-0400 SaO2% (BldA) [Mass fraction] 96 % Khanh Mustafa APRN.HARDBOARD PANEL PRINTER Work Phone: [facility] 03-20-2023 10:56-0400 Systolic blood pressure 108 mm[Hg] Khanh Mustafa APRN.HARDBOARD PANEL PRINTER Work Phone: [facility] 01-21-2023 09:41-0400 Body height 165.1 cm Maria Elena Dockery MD Work Phone: [facility] 01-21-2023 09:41-0400 Body weight 67.86 kg Maria Elena Dockery MD Work Phone: [facility] 01-21-2023 09:41-0400 Diastolic blood pressure 64 mm[Hg] Maria Elena Dockery MD Work Phone: [facility] 01-21-2023 09:41-0400 Heart rate 58 /min Maria Elena Dockery MD Work Phone: [facility] 01-21-2023 09:41-0400 SaO2% (BldA) [Mass fraction] 98 % Maria Elena Dockery MD Work Phone: [facility] 01-21-2023 09:41-0400 Systolic blood pressure 110 mm[Hg] Maria Elena Dockery MD Work Phone: [facility] 01-03-2023 17:50-0400 Body temperature 97.3 [degF] Prachi Doss DO Work Phone: [facility] 01-03-2023 17:50-0400 Diastolic blood pressure 77 mm[Hg] Prachi Doss DO Work Phone: [facility] 01-03-2023 17:50-0400 Heart rate 61 /min Prachi Doss DO Work Phone: [facility] 01-03-2023 17:50-0400 Respiratory rate 14 /min Prachi Doss DO Work Phone: [facility] 01-03-2023 17:50-0400 SaO2% (BldA) [Mass fraction] 98 % Prachi Choigerson DO Work Phone: [facility] 01-03-2023 17:50-0400 Systolic blood pressure 110 mm[Hg] Prachi Romario DO Work Phone: [facility] 12-18-2022 13:48-0400 Body height 165.1 cm Ledy Ivy MD Work Phone: [facility] 12-18-2022 13:48-0400 Body weight 67.86 kg Ledy Ivy MD Work Phone: [facility] 12-18-2022 13:48-0400 Diastolic blood pressure 64 mm[Hg] Ledy Ivy MD Work Phone: [facility] 12-18-2022 13:48-0400 Heart rate 54 /min Ledy Ivy MD Work Phone: [facility] 12-18-2022 13:48-0400 Systolic blood pressure 108 mm[Hg] Ledy Ivy MD Work Phone: [facility] 12-10-2022 15:00-0500 Body height 165.1 cm Pacc 1 Work Phone: [facility] 12-10-2022 15:00-0500 Body temperature 98.8 [degF] Pacc 1 Work Phone: [facility] 12-10-2022 15:00-0500 Body weight 67.59 kg Pacc 1 Work Phone: [facility] 12-10-2022 15:00-0500 Diastolic blood pressure 68 mm[Hg] Pacc 1 Work Phone: [facility] 12-10-2022 15:00-0500 Heart rate 73 /min Pacc 1 Work Phone: [facility] 12-10-2022 15:00-0500 Respiratory rate 18 /min Pacc 1 Work Phone: [facility] 12-10-2022 15:00-0500 SaO2% (BldA) [Mass fraction] 97 % Pac 1 Work Phone: [facility] 12-10-2022 15:00-0500 Systolic blood pressure 100 mm[Hg] Pac 1 Work Phone: [facility] 10-24-2022 08:34-0500 Body height 152.4 cm Dane Ortiz Work Phone: GB-Luwysfrqwp-Fll her Work Phone: 10-24-2022 08:34-0500 Body mass index (BMI) [Ratio] 28.79 kg/m2 Dane Ortiz Work Phone: UB-Utghtuffuj-Fdp her Work Phone: 10-24-2022 08:34-0500 Body surface area Derived from formula 1.64 m2 Dane Ortiz Work Phone: HG-Joastlwche-Fjy her Work Phone: 10-24-2022 08:34-0500 Body temperature 97.4 [degF] Dane Ortiz Work Phone: TN-Tryigctdwb-Sbs her Work Phone: 10-24-2022 08:34-0500 Body weight 66.86 kg Dane Ortiz Work Phone: UU-Wkwkotlhte-Ffo her Work Phone: 10-24-2022 08:34-0500 Diastolic blood pressure 72 mm[Hg] Dane Ortiz Work Phone: OV-Bkesnnuzen-Nmj her Work Phone: 10-24-2022 08:34-0500 Heart rate 72 /min Dane Ortiz Work Phone: ZY-Mayjbmbiey-Hhu her Work Phone: 10-24-2022 08:34-0500 SaO2% (BldA) [Mass fraction] 97 % Dane Ortiz Work Phone: TP-Mtrchhsjwl-Vbi her Work Phone: 10-24-2022 08:34-0500 Systolic blood pressure 122 mm[Hg] Dane Ortiz Work Phone: DL-Jgubssbosk-Xhk her Work Phone: 10-24-2022 08:34-0500 0 1 Dane Ortiz Work Phone: AJ-Gwuyrjmasq-Vad her Work Phone: Comment on above: [employer] 09-14-2022 15:40-0500 Body weight 65.77 kg NA Tate PA-C Work Phone: [facility] 09-14-2022 15:40-0500 Diastolic blood pressure 76 mm[Hg] NA Tate PA-C Work Phone: [facility] 09-14-2022 15:40-0500 Heart rate 72 /min NA Tate PA-C Work Phone: [facility] 09-14-2022 15:40-0500 Respiratory rate 18 /min NA Tate PA-C Work Phone: [facility] 09-14-2022 15:40-0500 SaO2% (BldA) [Mass fraction] 97 % NA Tate PA-C Work Phone: [facility] 09-14-2022 15:40-0500 Systolic blood pressure 110 mm[Hg] NA Tate PA-C Work Phone: [facility] 07-23-2022 12:11-0400 Body temperature 98.2 [degF] Marisela Athy PA-C Work Phone: [facility] 07-23-2022 12:11-0400 Body weight 63.96 kg Marisela Athy PA-C Work Phone: [facility] 07-23-2022 12:11-0400 Diastolic blood pressure 78 mm[Hg] Marisela Athy PA-C Work Phone: [facility] 07-23-2022 12:11-0400 Heart rate 78 /min Marisela Kimbally PA-C Work Phone: [facility] 07-23-2022 12:11-0400 Respiratory rate 22 /min Marisela Casper PA-C Work Phone: [facility] 07-23-2022 12:11-0400 SaO2% (BldA) [Mass fraction] 95 % Marisela Casper PA-C Work Phone: [facility] 07-23-2022 12:11-0400 Systolic blood pressure 100 mm[Hg] Marisela Casper PA-C Work Phone: [facility] 05-08-2022 15:07-0400 Body height 165.1 cm Kris Justino DO Work Phone: [facility] 05-08-2022 15:07-0400 Body weight 65.77 kg Kris Badillo DO Work Phone: [facility] 05-04-2022 16:49-0400 Body temperature 98.71 [degF] Isabel Guillaume CELL MAKER.HARDBOARD PANEL PRINTER Work Phone: [facility] 05-04-2022 16:49-0400 Body weight 65.95 kg Isabel Guillaume CELL MAKER.HARDBOARD PANEL PRINTER Work Phone: [facility] 05-04-2022 16:49-0400 Diastolic blood pressure 66 mm[Hg] Isabel Guillaume CELL MAKER.HARDBOARD PANEL PRINTER Work Phone: [facility] 05-04-2022 16:49-0400 Heart rate 64 /min Isabel Guillaume CELL MAKER.HARDBOARD PANEL PRINTER Work Phone: [facility] 05-04-2022 16:49-0400 Respiratory rate 20 /min Isabel Guillaume CELL MAKER.HARDBOARD PANEL PRINTER Work Phone: [facility] 05-04-2022 16:49-0400 SaO2% (BldA) [Mass fraction] 97 % Isabel Guillaume CELL MAKER.HARDBOARD PANEL PRINTER Work Phone: [facility] 05-04-2022 16:49-0400 Systolic blood pressure 110 mm[Hg] Isabel Guillaume STORMY.HARDBOARD PANEL PRINTER Work Phone: [facility] 04-18-2022 08:45-0400 Body mass index (BMI) [Ratio] 27.91 kg/m2 Dane Ortiz Work Phone: GH-Nycguomjze-Whh her Work Phone: 04-18-2022 08:45-0400 Body surface area Derived from formula 1.62 m2 Dane Ortiz Work Phone: GN-Uatkqkzisj-Kyi her Work Phone: 04-18-2022 08:45-0400 Body temperature 98.4 [degF] Dane Ortiz Work Phone: PV-Zlxgqiergs-Hoh her Work Phone: 04-18-2022 08:45-0400 Body weight 64.82 kg Dane Ortiz Work Phone: RU-Qqfxotlvks-Ncy her Work Phone: 04-18-2022 08:45-0400 Diastolic blood pressure 51 mm[Hg] Dane Ortiz Work Phone: VF-Pefiqptjfm-Apr her Work Phone: 04-18-2022 08:45-0400 Heart rate 82 /min Dane Ortiz Work Phone: CK-Vdwmmjnywo-Bcy her Work Phone: 04-18-2022 08:45-0400 SaO2% (BldA) [Mass fraction] 96 % Dane Ortiz Work Phone: OY-Kgrdoyabwi-Gep her Work Phone: 04-18-2022 08:45-0400 Systolic blood pressure 154 mm[Hg] Dane Ortiz Work Phone: BY-Ayojdfmylt-Zer her Work Phone: 04-18-2022 08:45-0400 0 1 Dane Ortiz Work Phone: AF-Yhxnmmjcqk-Gcw her Work Phone: Comment on above: [employer] 03-06-2022 15:17-0400 Body height 165.1 cm Jayram Justino DO Work Phone: [facility] 03-06-2022 15:17-0400 Body weight 63.5 kg Jayram Justino DO Work Phone: [facility] 03-06-2022 15:17-0400 Diastolic blood pressure 68 mm[Hg] Jayram Justino DO Work Phone: [facility] 03-06-2022 15:17-0400 Systolic blood pressure 112 mm[Hg] Jayram Justino DO Work Phone: [facility] 03-06-2022 08:28-0400 Body height 165.1 cm Sawyer Lawson PA-C Work Phone: [facility] 03-06-2022 08:28-0400 Body temperature 98.6 [degF] Sawyer Lawson PA-C Work Phone: [facility] 03-06-2022 08:28-0400 Body weight 63.05 kg Sawyer Lawson PA-C Work Phone: [facility] 03-06-2022 08:28-0400 Diastolic blood pressure 66 mm[Hg] Sawyer Lawson PA-C Work Phone: [facility] 03-06-2022 08:28-0400 Heart rate 66 /min Saywer Lawson PA-C Work Phone: [facility] 03-06-2022 08:28-0400 Respiratory rate 14 /min Sawyer Lawson PA-C Work Phone: [facility] 03-06-2022 08:28-0400 SaO2% (BldA) [Mass fraction] 98 % Sawyer Lawson PA-C Work Phone: [facility] 03-06-2022 08:28-0400 Systolic blood pressure 110 mm[Hg] Sawyer Lawson PA-C Work Phone: [facility] 02-19-2022 07:58-0400 Body weight 64.41 kg NA Tate PA-C Work Phone: [facility] 02-19-2022 07:58-0400 Diastolic blood pressure 68 mm[Hg] NA Tate PA-C Work Phone: [facility] 02-19-2022 07:58-0400 Heart rate 68 /min NA Tate PA-C Work Phone: [facility] 02-19-2022 07:58-0400 SaO2% (BldA) [Mass fraction] 98 % NA Tate PA-C Work Phone: [facility] 02-19-2022 07:58-0400 Systolic blood pressure 120 mm[Hg] NA Tate PA-C Work Phone: [facility] 07-26-2021 08:04-0400 Body mass index (BMI) [Ratio] 27.89 kg/m2 Dane Ortiz Work Phone: LB-Ubdqrigfpz-Svh k [place] Work Phone: 07-26-2021 08:04-0400 Body surface area Derived from formula 1.62 m2 Dane Ortiz Work Phone: WY-Xmmhbynpry-Zry k [place] Work Phone: 07-26-2021 08:04-0400 Body temperature 98 [degF] Dane Ortiz Work Phone: QP-Pfqruguyzf-Kgm k [place] Work Phone: 07-26-2021 08:04-0400 Body weight 64.77 kg Dane Ortiz Work Phone: PA-Qxcxiwcnzg-Alk k [place] Work Phone: 07-26-2021 08:04-0400 Diastolic blood pressure 55 mm[Hg] Dane Ortiz Work Phone: HW-Wsgoccfool-Bku k [place] Work Phone: 07-26-2021 08:04-0400 Heart rate 75 /min Dane Ortiz Work Phone: RK-Txpblyhwbp-Xip k [place] Work Phone: 07-26-2021 08:04-0400 SaO2% (BldA) [Mass fraction] 99 % Dane Ortiz Work Phone: KI-Wbcukyvqqm-Bad k [place] Work Phone: 07-26-2021 08:04-0400 Systolic blood pressure 125 mm[Hg] Dane Ortiz Work Phone: MI-Uiymipwaiq-Xib k [place] Work Phone: 07-26-2021 08:04-0400 0 1 Dane Ortiz Work Phone: CH-Qklfrzqnaf-Pxk k [place] Work Phone: Comment on above: [facility] 03-01-2020 15:20-0400 BP Diastolic 64 mm[Hg] [place] 03-01-2020 15:20-0400 BP Systolic 128 mm[Hg] [place] 03-01-2020 15:20-0400 Pulse (Heart Rate) 51 /min Andreas [place], [place] 03-01-2020 15:20-0400 Pulse Oximetry 98 % [place] 03-01-2020 15:20-0400 Respiratory Rate 18 /min Andreas [facility], [place] 03-01-2020 12:10-0400 BMI (Body Mass Index) 24.96 kg/m2 Andreas [place] 03-01-2020 12:10-0400 Body Temperature 99.19 [degF] Andreas [facility], [place] 03-01-2020 12:10-0400 Body weight 68.04 kg Andreas [place] 03-01-2020 12:10-0400 Height 165.1 cm Andreas [place], [place] Encounters Encounter Date Encounter Type Care Provider Facility Start: 07-22-2024 End: 07-22-2024 ambulatory [facility] Start: 07-20-2024 ambulatory MR Diana STEEN Facility:[facility] Start: 07-17-2024 End: 07-17-2024 Office outpatient visit 25 minutes Verónica M Freedom DO Work Phone: [facility] Comment on above: Gram-negative bacter emia (Primary Dx) Start: 07-17-2024 End: 07-17-2024 ambulatory VERÓNICA Ortiz [facility] Start: 07-15-2024 End: 07-15-2024 Telephone encounter Diana GOODWINC Work Phone: [facility] [place] Comment on above: FYI-No Action Needed Start: 07-13-2024 End: 07-17-2024 ambulatory MR Diana STEEN Facility:[facility] Start: 07-13-2024 End: 07-17-2024 Outreach Lab VERÓNICA TATUM [facility] Start: 07-09-2024 End: 07-09-2024 ambulatory MR Diana TATE ENIO Facility:[facility] Start: 07-09-2024 End: 07-09-2024 Patient encounter procedure PHY WO ID REFERRING [facility] Start: 07-09-2024 End: 07-10-2024 Telephone encounter Diana Ines STEEN-C Work Phone: [facility] [place] Comment on above: [facility] Start: 07-07-2024 End: 07-07-2024 ambulatory Diana TATE Facility:[facility] Start: 07-07-2024 End: 07-07-2024 Subsequent hospital visit by physician Arnol [facility] [place] Work Phone: Radiology Comment on above: Right-sided thoracic back pain, unspecified chronicity [M54.6] Start: 07-07-2024 End: 07-07-2024 Office outpatient visit 15 minutes Melissa Layne APRN.CNP Work Phone: Family 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); Mixed hyperlipidemia; Radiculopathy, lumbar region; VHD (valvular heart disease); H/O kidney transplant; ASHD (arteriosclerotic heart disease) Start: 07-07-2024 End: 07-07-2024 ambulatory SELF Facility:[facility] Start: 07-07-2024 End: 07-07-2024 Telephone encounter Ok Mendoza MD Work Phone: [facility] [place] Comment on above: requesting verbal or hawk Start: 07-06-2024 End: 07-10-2024 Telephone encounter Diana Tate PA-C Work Phone: [facility] [place] Comment on above: PT HH POC Start: 07-06-2024 End: 07-10-2024 ambulatory MR Ortiz INES STEEN Facility:[facility] Start: 07-06-2024 End: 07-10-2024 Outreach Lab PHY WO ID REFERRING [facility] Start: 07-03-2024 ambulatory MR Ortiz INES STEEN Facility:[facility] Start: 07-01-2024 End: 07-01-2024 Telephone encounter Diana Tate PA-C Work Phone: [facility] [place] Comment on above: [facility] - verbal orders Start: 06-29-2024 End: 06-29-2024 ambulatory [facility] Start: 06-26-2024 End: 07-03-2024 Evaluation and management of inpatient FARZANA HECTORLEANNA PERSON [facility] Start: 06-14-2024 End: 06-26-2024 Evaluation and management of inpatient [facility] Start: 06-13-2024 Evaluation and manag ement of inpatient MARYSE FAJARDO [facility] Start: 06-02-2024 End: 06-03-2024 Telephone encounter Maria Elena Dockery MD Work Phone: Cardiology Comment on above: Patient Update Start: 05-26-2024 End: 05-26-2024 ambulatory Diana Chacon Bebeto SIEGEL Work Phone: [facility] [place] Start: 05-25-2024 End: 05-26-2024 Telephone encounter Melissa Layne CELL MAKER.HARDBOARD PANEL PRINTER Work Phone: [facility] [place] Start: 05-24-2024 End: 06-11-2024 [facility] Start: 05-19-2024 Telephone encounter Melissa Layne CELL MAKER.HARDBOARD PANEL PRINTER Work Phone: [facility] [place] Start: 05-14-2024 End: 05-14-2024 Telephone encounter Jennifer Sutton CELL MAKER - HARDBOARD PANEL PRINTER Work Phone: [facility] Start: 05-07-2024 End: 05-07-2024 Office outpatient visit 15 minutes Jennifer Sutton CELL MAKER - HARDBOARD PANEL PRINTER Work Phone: [facility] Comment on above: 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) (Primary Dx) Start: 05-07-2024 End: 05-07-2024 ambulatory Diana TATE [facility] Start: 04-30-2024 End: 04-30-2024 ambulatory [facility] Start: 04-27-2024 Orders Only Maria Elena Dockery MD Work Phone: Cardiology Comment on above: Swelling of arm (Rosa pina Dx) Start: 04-26-2024 End: 04-29-2024 Evaluation and management of inpatient [facility] Start: 04-23-2024 Telephone encounter Maria Elena Dockery MD Work Phone: Cardiology Comment on above: Results (Vasular eduardo dies) Start: 04-01-2024 End: 04-01-2024 ambulatory V[facility]CTOR [facility] Start: 03-31-2024 End: 03-31-2024 Subsequent hospital visit by physician Arnol [facility] [place] Work Phone: Radiology Comment on above: Pneumonia of right l ower lobe due to infectious organism [J18.9] Start: 03-31-2024 End: 03-31-2024 ambulatory Diana TATE Facility:[facility] Start: 03-31-2024 End: 03-31-2024 Patient encounter procedure Diana Tate PA-C Work Phone: [facility] [place] Comment on above: Hospital discharge f ollow-up (Primary Dx); Scarring of lower left lung; Pneumonia of right lower lobe due to infectious organism; H/O kidney transplant; Renal failure, chronic, stage 3 (moderate) (HCC); 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); Swelling of left forearm; Hernia of abdominal wall; Heel spur, left; 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); Arterial occlusive disease Start: 03-23-2024 End: 03-23-2024 Orders Only Jennifer Chowdary CNP Work Phone: [facility] Comment on above: 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) (Primary Dx); Aftercare following surgery of the circulatory system Coughing Up Blood 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) Clinical Update Start: 03-18-2024 End: 03-18-2024 ambulatory [facility] Start: 03-12-2024 End: 03-12-2024 ambulatory [facility] Start: 02-26-2024 End: 02-26-2024 ambulatory MARIA ELENA DOCKERY Facility:[facility] Start: 02-11-2024 End: 02-11-2024 Subsequent hospital visit by physician Arnol [facility] [place] Work Phone: Radiology Comment on above: Persistent cough for 3 weeks or longer [R05.3] Start: 02-11-2024 End: 02-11-2024 ambulatory Diana TATE Facility:[facility] Start: 02-11-2024 End: 02-11-2024 Patient encounter procedure Khanh Mustafa APRN.HARDBOARD PANEL PRINTER [facility] Comment on above: Persistent cough for 3 weeks or longer (Primary Dx); COPD exacerbation (HCC); Swelling of hand Start: 02-03-2024 End: 02-03-2024 ambulatory MARIA ELENA DOCKERY Facility:[facility] Start: 02-03-2024 End: 02-03-2024 Patient encounter procedure Maria Elena Dockery MD Work Phone: Cardiology Comment on above: Peripheral vascular disease (HCC) (Primary Dx); Claudication of both lower extremities ([facility]); Coronary artery disease involving te-moak coronary artery of te-moak heart without angina pectoris; Mixed hyperlipidemia Start: 01-15-2024 End: 01-15-2024 Office outpatient visit 25 minutes Matthew Sellers MD Work Phone: [facility] Comment on above: Kidney replaced by t ransplant (Primary Dx); Essential hypertension; Vitamin D deficiency; Hyperparathyroidism ([facility]/HCC); Benign prostatic hyperplasia without lower urinary tract symptoms Start: 01-15-2024 End: 01-15-2024 ambulatory [facility] Start: 01-13-2024 End: 01-13-2024 ambulatory [facility] Start: 01-02-2024 Telephone encounter Jennifer schulz CELL MAKER - HARDBOARD PANEL PRINTER Work Phone: [facility] Comment on above: Test Scheduling (Rec all ) Start: 01-02-2024 End: 01-02-2024 Subsequent hospital visit by physician Arnol [facility] [place] Work Phone: Radiology Comment on above: Foot pain, left [M79 .672] Start: 01-02-2024 End: 01-02-2024 ambulatory Diana TATE Facility:[facility] Start: 12-30-2023 End: 12-30-2023 Subsequent hospital visit by physician Arnol [facility] [place] Work Phone: Radiology Comment on above: Influenza A with pne umonia [J09.X1] Start: 12-30-2023 End: 12-30-2023 ambulatory Diana TATE Facility:[facility] Start: 12-30-2023 End: 12-30-2023 Patient encounter procedure Diana Tate PA-C Work Phone: [facility] [place] Comment on above: Influenza A with pne umonia (Primary Dx) Start: 11-29-2023 End: 11-29-2023 Patient encounter procedure Diana Tate PA-C Work Phone: [facility] [place] Comment on above: Hospital discharge f ollow-up (Primary Dx); H/O kidney transplant; Chronic renal failure, stage 3a (HCC); Acute renal failure superimposed on stage 3a chronic kidney disease, unspecified acute renal failure type (HCC); 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); Influenza A with pneumonia; Chronic obstructive pulmonary disease, unspecified COPD type (HCC); Viral pneumonia; Consolidation of left lower lobe of lung (HCC) Start: 11-29-2023 End: 11-29-2023 ambulatory Diana INES TATE Facility:[facility] Start: 11-21-2023 Patient Outreach Nikki Ramírez MA [facility] [place] Comment on above: Transition Of Care ( [facility] 11/15/23-11/20/23 Flu A, COPD) Start: 11-13-2023 End: 11-13-2023 ambulatory MATTHEW SELLERS [facility] Start: 11-13-2023 End: 11-13-2023 Office outpatient visit 25 minutes Matthew Sellers MD Work Phone: [facility] Comment on above: Kidney replaced by t ransplant (Primary Dx); Essential hypertension; Vitamin D deficiency; Hyperparathyroidism (CMS/HCC); Benign prostatic hyperplasia without lower urinary tract symptoms; Osteoporosis with current pathological fracture, unspecified osteoporosis type, initial encounter; Stage 3b chronic kidney disease (CMS/HCC) Start: 10-10-2023 End: 10-10-2023 [facility] Start: 10-01-2023 End: 10-01-2023 ambulatory Diana TATE Facility:[facility] Start: 09-26-2023 End: 09-26-2023 ambulatory Diana TATE Facility:[facility] Start: 08-05-2023 End: 08-05-2023 ambulatory INES TATE Facility:[facility] Start: 08-05-2023 End: 08-05-2023 Patient encounter procedure Taryn Morris MD Work Phone: [facility] Comment on above: Acute COVID-19 (Prim keyla Dx); COPD with exacerbation (HCC) Start: 06-26-2023 End: 06-26-2023 Patient encounter procedure Prachi oDss DO Work Phone: Orthopaedics Comment on above: S/P left rotator cuf f repair (Primary Dx) Start: 05-30-2023 Telephone encounter Jennifer Choco schulz CELL MAKER - HARDBOARD PANEL PRINTER Work Phone: [facility] Comment on above: Test Scheduling (PVR ) Start: 05-27-2023 End: 05-27-2023 Office outpatient visit 15 minutes Jennifer Sutton CELL MAKER - HARDBOARD PANEL PRINTER Work Phone: [facility] Comment on above: Atherosclerosis of a rtery of extremity with intermittent claudication (HCC) (Primary Dx) Start: 05-27-2023 End: 05-27-2023 ambulatory JENNIFER SUTTON [facility] Start: 05-22-2023 Patient encounter procedure Dane Ortiz Work Phone: [facility] Work Phone: Start: 03-29-2023 End: 03-29-2023 Patient encounter procedure Prachi Doss DO Work Phone: Orthopaedics Comment on above: Postoperative pain ( Primary Dx); S/P left rotator cuff repair; S/P shoulder surgery; Chronic left shoulder pain; Traumatic incomplete tear of left rotator cuff, initial encounter; Impingement syndrome of left shoulder Start: 03-28-2023 End: 03-28-2023 Admission to same day surgery center Lazaro Zia PT Work Phone: [facility] Comment on above: S/P shoulder surgery (Primary Dx) Start: 03-28-2023 End: 03-28-2023 ambulatory Lazaro Zia PT Work Phone: [facility] Start: 03-25-2023 End: 03-25-2023 Admission to same day surgery center Lazaro Zia PT Work Phone: [facility] Comment on above: S/P shoulder surgery (Primary Dx) Start: 03-25-2023 End: 03-25-2023 ambulatory Lazaro Lizarraga PT Work Phone: [facility] Start: 03-22-2023 End: 03-22-2023 Admission to same day surgery center Nasra Jujuapple HAZARDOUS MATERIALS HANDLER Work Phone: [facility] Comment on above: S/P shoulder surgery (Primary Dx) Start: 03-22-2023 End: 03-22-2023 ambulatory [facility] HAZARDOUS MATERIALS HANDLER Work Phone: [facility] Start: 03-20-2023 End: 03-20-2023 Patient encounter procedure Khanh Mustafa APRN.HARDBOARD PANEL PRINTER Work Phone: [facility] Comment on above: Sore throat (Primary Dx); COPD with exacerbation (HCC) Start: 03-20-2023 End: 03-20-2023 Subsequent hospital visit by physician Aura Anderson PA-C Work Phone: [facility] Comment on above: 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) Start: 03-08-2023 End: 03-08-2023 Admission to same day surgery center Lazaro Zia PT Work Phone: [facility] Comment on above: S/P shoulder surgery (Primary Dx) Start: 03-08-2023 End: 03-08-2023 ambulatory Lazaro Lizarraga PT Work Phone: [facility] Start: 02-12-2023 End: 02-12-2023 Admission to same day surgery center Nasra Gamble HAZARDOUS MATERIALS HANDLER Work Phone: [facility] Comment on above: S/P shoulder surgery (Primary Dx) Start: 02-12-2023 End: 02-12-2023 ambulatory Nasrasaud Gamble HAZARDOUS MATERIALS HANDLER Work Phone: [facility] Start: 01-29-2023 End: 01-29-2023 Admission to same day surgery center Lazaro Lizarraga PT Work Phone: [facility] Comment on above: S/P shoulder surgery (Primary Dx) Start: 01-29-2023 End: 01-29-2023 ambulatory Lazaro Lizarraga PT Work Phone: [facility] Start: 01-25-2023 End: 01-25-2023 Refill Prachi Doss DO Work Phone: Orthopaedics Comment on above: Refill Request S/P left rotator cuf f repair (Primary Dx); S/P shoulder surgery Start: 01-21-2023 End: 01-21-2023 Patient encounter procedure Maria Elena Dockery MD Work Phone: Cardiology Comment on above: Coronary artery dise ase involving te-moak coronary artery of te-moak heart without angina pectoris; Claudication of both lower extremities (HCC); Mixed hyperlipidemia Start: 01-18-2023 End: 01-18-2023 Patient encounter procedure Abraham Gibbs PA-C Work Phone: Orthopaedics Comment on above: S/P left rotator cuf f repair (Primary Dx); S/P shoulder surgery Start: 01-04-2023 Telephone encounter Prachi Doss DO Work Phone: Orthopaedics Comment on above: Medication Problem Start: 01-03-2023 End: 01-03-2023 Subsequent hospital visit by physician Prachi Doss DO Work Phone: Ambulatory Surgery Comment on above: Traumatic incomplete tear of left rotator cuff, initial encounter [S46.012A], Impingement syndrome of left shoulder [M75.42], Bursitis of left shoulder [M75.52], Traumatic tear of left rotator cuff, unspecified tear extent, initial encounter [S46.012A], Tendinitis of left shoulder [M77.8] Start: 12-27-2022 Telephone encounter Ledy hughes MD Work Phone: Cardiology Comment on above: Results (echo) Start: 12-26-2022 ambulatory [facility] Facility:[facility] Start: 12-26-2022 Encounter for preprocedural cardiovascular examination [facility] Start: 12-26-2022 End: 12-26-2022 Patient encounter status [facility] Work Phone: Cardiology Lab Start: 12-26-2022 End: 12-26-2022 Subsequent hospital visit by physician [facility] Work Phone: Cardiology Lab Comment on above: Coronary artery dise ase involving te-moak coronary artery of te-moak heart without angina pectoris [I25.10] Start: 12-18-2022 End: 12-18-2022 Patient encounter procedure Ledy Ivy MD Work Phone: Cardiology Comment on above: Coronary artery dise ase involving te-moak coronary artery of te-moak heart without angina pectoris (Primary Dx); Essential hypertension; Dyslipidemia; Pre-operative cardiovascular examination Start: 12-18-2022 End: 12-18-2022 Patient encounter status Ledy Ivy MD Work Phone: Cardiology Start: 12-18-2022 Telephone encounter Prachi Doss DO Work Phone: Orthopaedics Comment on above: Patient Update Start: 12-11-2022 Telephone encounter Sallie Carlisle APRN.CNP Work Phone: Pre Anesthesia Comment on above: Cardiac Clearance Start: 12-10-2022 End: 12-10-2022 PAT [facility] 1 Work Phone: Pre Anesthesia Comment on above: Pre-operative examin ation (Primary Dx); Benign prostatic hyperplasia with urinary obstruction; Neurogenic bladder; VIC (obstructive sleep apnea); Coronary artery disease involving te-moak coronary artery of te-moak heart without angina pectoris; Claudication of both lower extremities (HCC); Chronic obstructive pulmonary disease, unspecified COPD type (HCC); Abnormal EKG; Current mild episode of major depressive disorder, unspecified whether recurrent (HCC); Deep vein thrombosis (DVT) of proximal lower extremity, unspecified chronicity, unspecified laterality (HCC); VHD (valvular heart disease); Pulmonary hypertension (HCC); Hyperparathyroidism (HCC); H/O kidney transplant; Gastroesophageal reflux disease without esophagitis; Mixed hyperlipidemia; Other osteoporosis without current pathological fracture; Pulmonary nodules Start: 12-10-2022 End: 12-10-2022 Preprocedural examination done [facility] [place] 1 Work Phone: Pre Anesthesia Start: 12-07-2022 Orders Only Prachi ramirez DO Work Phone: Orthopaedics Comment on above: Traumatic incomplete tear of left rotator cuff, initial encounter (Primary Dx); Impingement syndrome of left shoulder; Bursitis of left shoulder; Traumatic tear of left rotator cuff, unspecified tear extent, initial encounter; Tendinitis of left shoulder Start: 12-06-2022 End: 12-06-2022 Patient encounter procedure Prachi Doss DO Work Phone: Orthopaedics Comment on above: Chronic left shoulde r pain (Primary Dx); Traumatic incomplete tear of left rotator cuff, initial encounter; Impingement syndrome of left shoulder; Traumatic tear of left rotator cuff, unspecified tear extent, initial encounter; Bursitis of left shoulder; Tendinitis of left shoulder Start: 11-15-2022 Telephone encounter Maynor fairbanks MD Work Phone: Orthopaedics Comment on above: Java Programmer - O ther Start: 11-08-2022 End: 11-08-2022 Patient encounter procedure Maynor Baldwin MD Work Phone: Orthopaedics Comment on above: Chronic left shoulde r pain (Primary Dx); Impingement syndrome of left shoulder; Adhesive capsulitis of left shoulder; Nontraumatic incomplete tear of left rotator cuff Start: 11-07-2022 End: 11-07-2022 ambulatory Tonny Golias PT Work Phone: [facility] Comment on above: Traumatic incomplete tear of left rotator cuff, subsequent encounter (Primary Dx) Start: 11-05-2022 End: 11-05-2022 ambulatory Nasra Kashuba HAZARDOUS MATERIALS HANDLER Work Phone: [facility] Comment on above: Traumatic incomplete tear of left rotator cuff, subsequent encounter (Primary Dx) Start: 10-31-2022 End: 10-31-2022 ambulatory Tonny Golias PT Work Phone: [facility] Comment on above: Traumatic incomplete tear of left rotator cuff, subsequent encounter (Primary Dx) Start: 10-24-2022 End: 10-24-2022 ambulatory Tonny Golias PT Work Phone: [facility] Comment on above: Traumatic incomplete tear of left rotator cuff, subsequent encounter (Primary Dx) Start: 10-24-2022 Patient encounter procedure Dane Ortiz Work Phone: Margi dsouza Work Phone: Start: 10-22-2022 End: 10-22-2022 ambulatory Nasra Matuteba HAZARDOUS MATERIALS HANDLER Work Phone: [facility] Comment on above: Traumatic incomplete tear of left rotator cuff, subsequent encounter (Primary Dx) Start: 10-22-2022 Telephone encounter Diana Tate PA-C Work Phone: [facility] Comment on above: Results Start: 10-19-2022 End: 10-20-2022 ambulatory Nasrasaud Matuteba HAZARDOUS MATERIALS HANDLER Work Phone: [facility] Comment on above: Traumatic incomplete tear of left rotator cuff, subsequent encounter (Primary Dx) Start: 10-17-2022 End: 10-17-2022 ambulatory Tonny Golias PT Work Phone: [facility] Comment on above: Traumatic incomplete tear of left rotator cuff, subsequent encounter (Primary Dx) Start: 10-09-2022 End: 10-09-2022 ambulatory Nasra Kashuba HAZARDOUS MATERIALS HANDLER Work Phone: [facility] Comment on above: Traumatic incomplete tear of left rotator cuff, subsequent encounter (Primary Dx) Start: 09-26-2022 End: 09-26-2022 ambulatory Nasar Gamble HAZARDOUS MATERIALS HANDLER Work Phone: [facility] Comment on above: Traumatic incomplete tear of left rotator cuff, subsequent encounter (Primary Dx) Start: 09-24-2022 End: 09-24-2022 Patient encounter procedure Maynor Baldwin MD Work Phone: Orthopaedics Comment on above: Chronic left shoulde r pain (Primary Dx); Acute pain of left shoulder Start: 09-20-2022 End: 09-20-2022 ambulatory Tonny De Guzman PT Work Phone: [facility] Comment on above: Coronary artery dise ase involving te-moak coronary artery of te-moak heart without angina pectoris; Claudication of both lower extremities (HCC); Mixed hyperlipidemia; Traumatic incomplete tear of left rotator cuff, subsequent encounter Start: 09-14-2022 End: 09-14-2022 Patient encounter procedure Diana Tate PA-C Work Phone: [facility] Comment on above: Coronary artery dise ase involving te-moak coronary artery of te-moak heart without angina pectoris (Primary Dx); Mixed hyperlipidemia; Claudication of both lower extremities (HCC); Chronic obstructive pulmonary disease, unspecified COPD type (HCC); Current mild episode of major depressive disorder, unspecified whether recurrent (HCC); Gastroesophageal reflux disease without esophagitis; H/O kidney transplant; Renal failure, chronic, stage 3 (moderate) (HCC); Hyperparathyroidism (HCC); Hyperhomocysteinemia (HCC); Traumatic incomplete tear of left rotator cuff, subsequent encounter; Other osteoporosis without current pathological fracture; Other osteoporosis; Benign prostatic hyperplasia with urinary obstruction Start: 07-23-2022 End: 07-23-2022 Patient encounter procedure Marisela Casper PA-C Work Phone: [facility] Comment on above: Bronchitis (Primary Dx) Start: 06-07-2022 End: 06-07-2022 Patient encounter procedure Maynor Baldwin MD Work Phone: Orthopaedics Comment on above: Acute pain of left s houlder (Primary Dx); Impingement syndrome of left shoulder Start: 05-21-2022 End: 05-21-2022 Patient encounter procedure Maynor Baldwin MD Work Phone: Orthopaedics Comment on above: Traumatic tear of le ft rotator cuff, unspecified tear extent, initial encounter (Primary Dx); Acute pain of left shoulder Start: 05-08-2022 End: 05-08-2022 Patient encounter procedure Kris Badillo DO Work Phone: [facility] Comment on above: Neurogenic bladder ( Primary Dx) Start: 05-04-2022 End: 05-04-2022 Subsequent hospital visit by physician Xr [facility] Work Phone: Radiology Comment on above: Acute pain of left sandro de [place]antos [M25.512] Start: 05-04-2022 End: 05-04-2022 Patient encounter procedure Isabel Guillaume APRN.CNP Work Phone: [facility] Comment on above: Acute pain of left sandro de [place] santos (Primary Dx); Abnormal x-ray Start: 04-20-2022 End: 04-20-2022 Patient encounter procedure Proc [employer] Work Phone: Urology Comment on above: Benign prostatic hyp erplasia with urinary obstruction (Primary Dx) Start: 04-18-2022 Patient encounter procedure Dane Ortiz Work Phone: [facility]Dlabkty[facility]c r Work Phone: Start: 04-06-2022 Orders Only Kris lanza DO Work Phone: Urology Comment on above: Benign prostatic hyp erplasia with urinary obstruction (Primary Dx) Start: 03-19-2022 Chart Update Dane gonzalez Work Phone: ZK[facility]Dufjftmxge-Ylnsk r Work Phone: Start: 03-06-2022 Refill Sawyer Lawson PA-C Work Phone: Urology Comment on above: Refill Request Start: 03-06-2022 Telephone encounter Sawyer saavedra PA-C Work Phone: [facility] Comment on above: Appointment Start: 03-06-2022 End: 03-06-2022 Patient encounter procedure Sawyer Lawson PA-C Work Phone: Urology Comment on above: Benign prostatic hyp erplasia with urinary obstruction (Primary Dx); Other age-related cataract of both eyes; H/O kidney transplant Benign prostatic hyp erplasia with urinary obstruction (Primary Dx); Neurogenic bladder Start: 02-19-2022 End: 02-19-2022 Patient encounter procedure Diana Ines Bebeto SIEGEL Work Phone: [facility] Comment on above: BPH with obstruction /lower urinary tract symptoms (Primary Dx); Coronary artery disease of te-moak artery of te-mo[place] heart with stable angina pectoris ([facility]); Mixed hyperlipidemia; Palpitations; Renal failure, chronic, stage 3 (moderate) ([facility]); H/O kidney transplant; Neurogenic bladder; Chronic obstructive pulmonary disease, unspecified COPD type ([facility]); VIC (obstructive sleep apnea); Gastroesophageal reflux disease without esophagitis; Current mild episode of major depressive disorder, unspecified whether recurrent ([facility]); Chronic pain syndrome; Hyperhomocysteinemia ([facility]); Claudication of both lower extremities ([facility]); Iliotibial band syndrome, unspecified laterality; Chronic left-sided low back pain with left-sided sciatica; Radiculopathy, lumbar region Start: 10-12-2021 Chart Update Dane gonzalez Work Phone: [facility]Pqjuokrtai[facility]Ixtjq r Work Phone: Start: 08-07-2021 Chart Update Dane gonzalez Work Phone: [facility]Nbggwfsbvp[facility]Bhswz r Work Phone: Start: 07-26-2021 Office outpatient vi sit 25 minutes Dane Ortiz Work Phone: [facility]gxv[facility]aj[facility] [place] Work Phone: Start: 07-26-2021 Patient encounter procedure Dane Ortiz Work Phone: [facility]Ohufqkljht[facility]Asqw [place] Work Phone: Start: 02-07-2021 End: 02-07-2021 Subsequent hospital visit by physician Guido Jauregui MD Work Phone: [facility] Comment on above: Stage 3 chronic kidn ey disease, unspecified whether stage 3a or 3b CKD; 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) Start: 08-20-2020 End: 08-20-2020 Subsequent hospital visit by physician Arnol [facility] Work Phone: Radiology Comment on above: Foot pain, right [M7 9.671] Start: 07-05-2020 End: 07-05-2020 Subsequent hospital visit by physician Guido Jauregui Work Phone: [facility] Comment on above: 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) Start: 03-01-2020 End: 03-01-2020 Subsequent hospital visit by physician Andreas Vegas Work Phone: [facility] General Surgery Comment on above: 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) Start: 02-11-2019 Patient encounter procedure [facility] Start: 01-05-2019 Patient encounter procedure [facility] Start: 08-11-2018 Ambulatory [facility] Facility :[facility] Start: 06-12-2018 Patient encounter procedure [facility] Start: 02-07-2018 End: 02-07-2018 Ambulatory [facility] Facility:[facility] Start: 09-09-2017 End: 09-09-2017 Ambulatory [facility] Facility:[facility] Start: 07-16-2017 End: 07-16-2017 Ambulatory [facility] Facility:[facility] Procedures Date Procedure Procedure Detail Performing Clinician Start: 07-07-2024 Radiologic exam ches t 2 views Melissa Layne APRN.HARDBOARD PANEL PRINTER Work Phone: Start: 06-06-2024 History of renal transplant Kidney replaced by transplant ([facility]) Verónica Tatum DO Work Phone: Start: 05-07-2024 Follow-up visit Follow-up JENNIFER SUTTON Start: 03-31-2024 Radiologic exam ches t 2 views Diana Tate PA-C Work Phone: Start: 03-23-2024 Dup-scan lxtr art/ar tl bpgs uni/lmtd study Jennifer Sutton CELL MAKER - HARDBOARD PANEL PRINTER Work Phone: Start: 02-11-2024 Radiologic exam ches t 2 views Khanh Mustafa APRN.HARDBOARD PANEL PRINTER Work Phone: Start: 01-13-2024 CBC panel - Blood by Automated count [facility] Start: 01-13-2024 Magnesium [Mass/volu me] in Serum or Plasma [facility] Start: 01-13-2024 PROTEIN, URINE RANDOM A [facility]ITTIR[facility] Start: 01-13-2024 PTH, INTACT [facility] JITTIR[facility] Start: 01-13-2024 RENAL FUNCTION PANEL AR [facility] JITTIR[facility] Start: 01-13-2024 Tacrolimus [Mass/vol ume] in Blood [facility]ITT[facility] Start: 01-13-2024 VITAMIN D 25-HYDROXY,TOTAL [facility]ITTIR[facility] Start: 01-02-2024 Radex foot complete minimum 3 views Oz Manuel APRN.HARDBOARD PANEL PRINTER Work Phone: Start: 12-30-2023 Radiologic exam ches t 2 views Diana Tate PA-C Work Phone: Start: 10-10-2023 CBC panel - Blood by Automated count [facility] Start: 10-10-2023 PROTEIN, URINE RANDOM A [facility] JITTIRAT Start: 10-10-2023 RENAL FUNCTION PANEL AR [facility] JITTIRAT Start: 10-10-2023 Tacrolimus [Mass/vol ume] in Blood [facility] JITTIR[facility] Start: 03-20-2023 STREP A MOLECULAR (POC) Khanh Mustafa APRN.HARDBOARD PANEL PRINTER Work Phone: Start: 03-20-2023 Dup-scan lxtr art/ar tl bpgs uni/lmtd study Aura Anderson PA-C Work Phone: Start: 12-26-2022 Echo tthrc r-t 2d w/wom-mode compl spec&colr d Ledy Ivy MD Work Phone: Start: 12-10-2022 End: 12-10-2022 Ecg routine ecg w/least 12 lds i&r only [facility] Provider Start: 10-19-2022 Lipid 1996 panel - S ramone or Plasma Prachi Doss DO Work Phone: Start: 09-24-2022 Arthrocentesis aspir &/inj major jt/bursa w/o Maynor Baldwin MD Work Phone: Start: 06-07-2022 Arthrocentesis aspir &/inj major jt/bursa w/o Maynor Baldwin MD Work Phone: Start: 05-04-2022 Radex shoulder compl ete minimum 2 views Isabel Guillaume CELL MAKER.HARDBOARD PANEL PRINTER Work Phone: Start: 03-06-2022 Urnls dip stick/tabl et rgnt auto w/o microscopy Kris Badillo DO Work Phone: Start: 03-06-2022 End: 03-06-2022 Urnls dip stick/tablet rgnt auto w/o microscopy Sawyer Lawson PA-C Work Phone: Start: 02-19-2022 Urnls dip stick/tabl et rgnt auto w/o microscopy Diana Tate PA-C Work Phone: Start: 02-19-2022 Blood occult peroxid ase actv qual feces 1-3 spec M Ines Tate PA-C Work Phone: Start: 06-14-2021 Colonoscopy Sawyer saavedra PA-C Work Phone: Start: 02-07-2021 Dup-scan lxtr art/ar tl bpgs compl bi study Guido Jauregui MD Work Phone: Start: 11-03-2020 CBC W Auto Different ial panel - Blood Ashley Richard Start: 11-03-2020 Drug screen quantita tive tacrolimus Ashley Richard Start: 11-03-2020 Renal function panel La Jess Richard Start: 08-20-2020 Radex foot complete minimum 3 views Taryn Morris MD Work Phone: Start: 07-05-2020 Dup-scan lxtr art/ar tl bpgs compl bi study Guido Jauregui Work Phone: Start: 03-01-2020 XA SPECIAL ANGIOGRAP HY PROCEDURE Andreas Vegas Work Phone: Start: 02-13-2018 History of renal transplant Kidney transplanted Guido Jauregui MD Work Phone: Start: 11-28-2012 History of renal transplant H/O kidney transplant Sawyer Lawson PA-C Work Phone: Cardiac catheterization FARZANA DAVIS DO Comment on above: 05/26/2024 History of renal transplant Kidney replaced by transplant Dane Ortiz Work Phone: Comment on above: Added by Problem Lis t Migration; 2013-05-01; Moved to Suppressed Sep 04 2013 9:10PM; History of renal transplant H/O kidney transplant Sawyer Lawson PA-C Work Phone: History of renal transplant H/O kidney transplant Diana Tate PA-C Work Phone: History of renal transplant H/O kidney transplant Diana Tate PA-C Work Phone: History of renal transplant H/O kidney transplant [facility] [place] [facility] Work Phone: History of renal transplant Kidney replaced by transplant Matthew Sellers MD Work Phone: History of renal transplant H/O kidney transplant Diana Tate PA-C Work Phone: History of renal transplant Kidney replaced by transplant Matthew Sellers MD Work Phone: History of renal transplant H/O kidney transplant Diana Tate PA-C Work Phone: History of renal transplant FARZANA DAVIS DO History of renal transplant H/O kidney transplant Melissa Layne CELL MAKER.HARDBOARD PANEL PRINTER Work Phone: History of repair of musculotendinous cuff of shoulder S/P left rotator cuff repair Abraham Gibbs PA-C Work Phone: History of repair of musculotendinous cuff of shoulder S/P left rotator cuff repair Lazaro Lizarraga PT Work Phone: History of repair of musculotendinous cuff of shoulder S/P left rotator cuff repair Mallorietrung Doss DO Work Phone: History of repair of musculotendinous cuff of shoulder S/P left rotator cuff repair Prachi Doss DO Work Phone: Stent, device (physi vishal object) FARZANA MURRAY DO Comment on above: 05/26/2024- cardiac P CI ROJELIO Transplant of kidney FARZANA BLACKWELL DO Comment on above: Plan of Treatment Date Care Activity Detail Author Start: 01-25-2032 DTaP/Tdap/Td Vaccine s (3 - Td or Tdap) DTaP/Tdap/Td Vaccines (3 - Td or Tdap) [facility] Start: 01-25-2032 Urine microalbumin profile [facility] Start: 06-14-2031 Colonoscopy COLONOSCOPY [facility] Start: 06-14-2031 COLORECTAL CANCER SCREENING COLORECTAL CANCER SCREENING [facility] Start: 06-14-2031 Screening for malign ant neoplasm of colon [facility] Start: 2029 RSV Immunization age d 60 or older (1 - 1-dose 60+ series) RSV Immunization aged 60 or older (1 - 1-dose 60+ series) [facility] Start: 2029 RSV patient s and/or patients aged 60+ years (1 - 1-dose 60+ series) RSV patients and/or patients aged 60+ years (1 - 1-dose 60+ series) [facility] Start: 10-19-2027 Lipid 1996 panel - Serum or Plasma Lipid Screening [facility] Start: 10-19-2027 Lipid panel Lipid Screening [facility] Start: 10-19-2027 LIPID SCREEN LIPID SCREEN [facility] Start: 06-15-2027 Diabetes Screening Diabetes Screenin g [facility] Start: 02-19-2027 Prostate specific antigen measurement Prostate Cancer Screening Discussion [facility] Start: 10-19-2025 DIABETES SCREEN DIABETES SCREEN [facility] Start: 10-19-2025 Diabetes Screening Diabetes Screenin g [facility] Start: 10-01-2025 Screening for osteoporosis Bone Density Scan [facility] Start: 06-26-2025 Complete blood count Hemoglobin/Parrish tocrit [facility] Start: 06-26-2025 Creatinine measurement [facility] Start: 06-26-2025 Potassium measurement Potassium Leve l [facility] Start: 06-20-2025 Echocardiography Echocardiogram [facility] Start: 06-19-2025 Diabetes mellitus screening Diabetes Screening [facility] Start: 04-29-2025 Creatinine measurement Creatinine Le giovanni [facility] Start: 04-29-2025 Potassium measurement Potassium Leve l [facility] Start: 04-25-2025 LIPID SCREEN LIPID SCREEN [facility] Start: 03-31-2025 Annual PCP Team Manager Travel jesus Disease Visit Annual PCP Team Chronic Disease Visit [facility] Start: 03-23-2025 End: 03-23-2025 Patient encounter procedure 03/23/2025 7:20 AM EDT Appointment [facility] [address] [facility] [address] [place] [address] Jennifer Sutton APRN - HARDBOARD PANEL PRINTER [address] [place] [phone] [facility] [address] [facility] Start: 03-18-2025 Complete blood count Hemoglobin/Parrish tocrit [facility] Start: 03-18-2025 Creatinine measurement [facility] Start: 03-18-2025 Potassium measurement Potassium Leve l [facility] Start: 01-12-2025 Complete blood count Hemoglobin/Parrish tocrit [facility] Start: 01-12-2025 Creatinine measurement [facility] Start: 01-12-2025 Potassium measurement Potassium Leve l [facility] Start: 12-29-2024 Annual PCP Team Manager Travel jesus Disease Visit Annual PCP Team Chronic Disease Visit [facility] Start: 11-29-2024 Annual PCP Team Manager Travel jesus Disease Visit Annual PCP Team Chronic Disease Visit [facility] Start: 11-25-2024 End: 06-24-2025 CT Chest WO contrast CT CHEST WO IVCON Radiology Routine Pulmonary nodule Expected: 11/25/2024, Expires: 06/24/2025 [facility] Work Phone: Comment on above: Expected: 11/25/2024 , Expires: 06/24/2025 Start: 10-13-2024 End: 10-13-2024 Patient encounter procedure 10/13/2024 3:00 PM EST Office Visit Family Medicine [place] [address] [facility] [place], [place] [id number] Melissa Layne APRN.HARDBOARD PANEL PRINTER [address] [place], [place] [phone] 3 month f/u Family Medicine [place] Comment on above: 3 month f/u Start: 10-10-2024 Complete blood count Hemoglobin/Parrish tocrit [facility] Start: 10-10-2024 Creatinine measurement [facility] Start: 10-10-2024 Potassium measurement Potassium Leve l [facility] Start: 10-01-2024 Screening for osteoporosis Bone Density Scan [facility] Start: 09-26-2024 Covid-19 Vaccine (#1) Covid-19 Vacci ne (#1) [facility] Comment on above: Postponed from 02/18 (Declined at this time) Start: 09-26-2024 Hepatitis B Vaccine (1 of 3 - 19+ 3-dose series) Hepatitis B Vaccine (1 of 3 - 19+ 3-dose series) [facility] Comment on above: Postponed from 02/18 (Declined at this time) Start: 09-26-2024 Hepatitis B Vaccine (1 of 3 - 3-dose series) Hepatitis B Vaccine (1 of 3 - 3-dose series) [facility] Comment on above: Postponed from 02/18 (Declined at this time) Start: 08-17-2024 End: 08-17-2024 Patient encounter procedure 08/17/2024 1:20 PM EST Office Visit Cardiology [address] [place] [address] Maria Elena Dockery MD [address], [address] [place] [address] 6 mo follow up Cardiology Comment on above: 6 mo follow up Start: 08-04-2024 End: 08-04-2024 Patient encounter procedure 08/04/2024 8:00 AM EDT Office Visit Vascular Surgery [address] [place] [address] Janae Zavala, DO [address] [place] [address] Swelling of arm [M79.89] Vascular Surgery Comment on above: Swelling of arm [M79 .89] Start: 08-03-2024 End: 08-03-2024 Patient encounter procedure 08/03/2024 3:00 PM EDT Procedure Visit [facility] [address] [facility] [address] [place] [phone] Janel Sewell MD MPH [address] [place] [address] [facility] Start: 07-22-2024 End: 07-22-2024 Patient encounter procedure 07/22/2024 8:00 AM EDT Office Visit [address] [place] [address] [facility] Start: 07-17-2024 End: 07-17-2025 Consult to Interventional Radiology Consult to Interventional Radiology Imaging Routine Gram-negative bacteremia Expected: 07/17/2024 (Approximate), Expires: 07/17/2025 [facility] Service Area Work Phone: Comment on above: Expected: 07/17/2024 (Approximate), Expires: 07/17/2025 Start: 07-07-2024 End: 07-07-2024 Patient encounter procedure 07/07/2024 3:00 PM EDT Office Visit Family Medicine [place] [address] [facility] [place] [address] Melissa Layne APRN.HARDBOARD PANEL PRINTER [address] [facility], [place] [phone] Christal Reno discharge 07/03 septic shock Family [facility] [place] Comment on above: Christal Reno dis charge 07/03 septic shock Start: 06-30-2024 End: 06-30-2024 Patient encounter procedure 06/30/2024 8:00 AM EDT Office Visit [facility] [place] [address] [facility] [place] [address] Diana Tate PA-C [address] [place], [place] [phone] 3 months follow up Family [facility] [place] Comment on above: 3 months follow up Start: 06-07-2024 Influenza vaccination [facility] Start: 06-05-2024 DIABETES SCREEN DIABETES SCREEN [facility] Start: 05-27-2024 Serum Creatinine Serum Creatinine [facility] Start: 04-05-2024 Influenza vaccination Influenza Vacc ine (#1) [facility] Comment on above: Postponed from 06/07 (Declined at this time) Start: 03-31-2024 End: 03-31-2024 Patient encounter procedure 03/31/2024 8:00 AM EDT Office Visit [facility] [address] [facility] [place] [address] Diana Tate, ROBBIN [address] [place] [address] 6 Month follow up [facility] [place] Comment on above: 6 Month follow up Start: 03-26-2024 ANNUAL PCP TEAM VACUUM PLASTIC FORMING MACHINE OPERATOR JESUS DISEASE VISIT ANNUAL PCP TEAM CHRONIC DISEASE VISIT [facility] Start: 02-26-2024 End: 02-26-2024 Patient encounter procedure [facility] Comment on above: Generalized edema [R 60.1] Start: 01-15-2024 End: 01-15-2024 Patient encounter procedure 01/15/2024 8:20 AM EDT Office Visit [address] [place] [address] [facility] Start: 11-29-2023 End: 02-28-2024 25-hydroxyvitamin D3 [Mass/volume] in Serum or Plasma VITAMIN D 25 HYDROXY Lab Routine Chronic renal failure, stage 3a (HCC) Expected: 11/29/2023, Expires: 02/28/2024 [facility] Work Phone: Comment on above: Expected: 11/29/2023 , Expires: 02/28/2024 Start: 11-29-2023 End: 02-28-2024 CBC W Auto Differential panel - Blood CBC + DIFF Lab Routine Chronic obstructive pulmonary disease, unspecified COPD type (HCC) Chronic renal failure, stage 3a (HCC) Expected: 11/29/2023, Expires: 02/28/2024 [facility] Work Phone: Comment on above: Expected: 11/29/2023 , Expires: 02/28/2024 Start: 11-29-2023 End: 02-28-2024 Comprehensive metabolic 2000 panel - Serum or Plasma COMP METABOLIC PANEL Lab Routine Chronic renal failure, stage 3a (HCC) Expected: 11/29/2023, Expires: 02/28/2024 [facility] Work Phone: Comment on above: Expected: 11/29/2023 , Expires: 02/28/2024 Start: 11-29-2023 End: 02-28-2024 Parathyrin.intact [Mass/volume] in Serum or Plasma PTH INTACT BLD Lab Routine Chronic renal failure, stage 3a (HCC) Expected: 11/29/2023, Expires: 02/28/2024 [facility] Work Phone: Comment on above: Expected: 11/29/2023 , Expires: 02/28/2024 Start: 11-29-2023 End: 02-28-2024 Phosphate [Mass/volume] in Serum or Plasma PHOSPHORUS INORGANIC Lab Routine Chronic renal failure, stage 3a (HCC) Expected: 11/29/2023, Expires: 02/28/2024 [facility] Work Phone: Comment on above: Expected: 11/29/2023 , Expires: 02/28/2024 Start: 11-13-2023 LEISA, Provider: Matthew Sellers, Status: Pen, Time: 8:40 AM LEISA, Provider: Matthew Sellers, Status: Pen, Time: 8:40 AM [id number]-Flt her Work Phone: Start: 10-19-2023 HEMOGLOBIN/HEMATOCRIT HEMOGLOBIN/HEM ATOCRIT [facility] Start: 10-19-2023 Hepatitis B surface antibody level LDL CHOLESTEROL [facility] Start: 10-19-2023 SERUM CREATININE SERUM CREATININE Cl [facility] Start: 09-14-2023 ANNUAL PCP TEAM VACUUM PLASTIC FORMING MACHINE OPERATOR JESUS DISEASE VISIT ANNUAL PCP TEAM CHRONIC DISEASE VISIT [facility] Start: 06-12-2023 End: 06-12-2023 Patient encounter procedure 06/12/2023 8:20 AM EDT Appointment [facility] [address] [place] [address] [facility] [address] [facility] [facility] Start: 06-07-2023 Influ[facility] Start: 02-19-2023 ANNUAL PCP TEAM VACUUM PLASTIC FORMING MACHINE OPERATOR JESUS DISEASE VISIT ANNUAL PCP TEAM CHRONIC DISEASE VISIT [facility] Start: 10-22-2022 End: 12-22-2022 Calcium.ionized [Moles/volume] in Blood CALCIUM IONIZED BLOOD Lab Routine Hyperparathyroidism (HCC) Renal failure, chronic, stage 3 (moderate) (HCC) Other osteoporosis without current pathological fracture Expected: 10/22/2022, Expires: 12/22/2022 [facility] Work Phone: Comment on above: Expected: 10/22/2022 , Expires: 12/22/2022 Start: 10-22-2022 End: 12-22-2022 Collagen crosslinked N-telopeptide [Moles/volume] in Serum CROSS-LINK N-TELO BL Lab Routine Hyperparathyroidism (HCC) Renal failure, chronic, stage 3 (moderate) (HCC) Other osteoporosis without current pathological fracture Expected: 10/22/2022, Expires: 12/22/2022 [facility] Work Phone: Comment on above: Expected: 10/22/2022 , Expires: 12/22/2022 Start: 10-22-2022 End: 12-22-2022 Parathyrin.intact [Mass/volume] in Serum or Plasma PTH INTACT BLD Lab Routine Hyperparathyroidism (HCC) Renal failure, chronic, stage 3 (moderate) (HCC) Other osteoporosis without current pathological fracture Expected: 10/22/2022, Expires: 12/22/2022 [facility] Work Phone: Comment on above: Expected: 10/22/2022 , Expires: 12/22/2022 Start: 10-22-2022 End: 12-22-2022 Phosphate [Mass/volume] in Serum or Plasma PHOSPHORUS INORGANIC Lab Routine Hyperparathyroidism (HCC) Renal failure, chronic, stage 3 (moderate) (HCC) Other osteoporosis without current pathological fracture Expected: 10/22/2022, Expires: 12/22/2022 [facility] Work Phone: Comment on above: Expected: 10/22/2022 , Expires: 12/22/2022 Start: 09-15-2022 End: 11-15-2022 25-hydroxyvitamin D3 [Mass/volume] in Serum or Plasma VITAMIN D 25 HYDROXY Lab Routine H/O kidney transplant Hyperparathyroidism (HCC) Renal failure, chronic, stage 3 (moderate) (HCC) Expected: 09/15/2022, Expires: 11/15/2022 [facility] Work Phone: Comment on above: Expected: 09/15/2022 , Expires: 11/15/2022 Start: 09-15-2022 End: 11-15-2022 CBC W Auto Differential panel - Blood CBC + DIFF Lab Routine Coronary artery disease involving te-moak coronary artery of te-moak heart without angina pectoris Renal failure, chronic, stage 3 (moderate) (HCC) Expected: 09/15/2022, Expires: 11/15/2022 [facility] Work Phone: Comment on above: Expected: 09/15/2022 , Expires: 11/15/2022 Start: 09-15-2022 End: 11-15-2022 Comprehensive metabolic 2000 panel - Serum or Plasma COMP METABOLIC PANEL Lab Routine Mixed hyperlipidemia Renal failure, chronic, stage 3 (moderate) (HCC) Expected: 09/15/2022, Expires: 11/15/2022 [facility] Work Phone: Comment on above: Expected: 09/15/2022 , Expires: 11/15/2022 Start: 09-15-2022 End: 11-15-2022 Parathyrin.intact [Mass/volume] in Serum or Plasma PTH INTACT BLD Lab Routine H/O kidney transplant Hyperparathyroidism (HCC) Renal failure, chronic, stage 3 (moderate) (HCC) Expected: 09/15/2022, Expires: 11/15/2022 [facility] Work Phone: Comment on above: Expected: 09/15/2022 , Expires: 11/15/2022 Start: 09-15-2022 End: 11-15-2022 Phosphate [Mass/volume] in Serum or Plasma PHOSPHORUS INORGANIC Lab Routine H/O kidney transplant Hyperparathyroidism (HCC) Renal failure, chronic, stage 3 (moderate) (HCC) Expected: 09/15/2022, Expires: 11/15/2022 [facility] Work Phone: Comment on above: Expected: 09/15/2022 , Expires: 11/15/2022 Start: 09-14-2022 End: 11-14-2022 Creatine kinase [Enzymatic activity/volume] in Serum or Plasma CK CREATINE KINASE Lab Routine Coronary artery disease involving te-moak coronary artery of te-moak heart without angina pectoris Claudication of both lower extremities (HCC) Mixed hyperlipidemia Expected: 09/14/2022, Expires: 11/14/2022 [facility] Work Phone: Comment on above: Expected: 09/14/2022 , Expires: 11/14/2022 Start: 09-14-2022 End: 11-14-2022 Lipid 1996 panel - Serum or Plasma LIPID PANEL BASIC Lab Routine Coronary artery disease involving te-moak coronary artery of te-moak heart without angina pectoris Claudication of both lower extremities (HCC) Mixed hyperlipidemia Expected: 09/14/2022, Expires: 11/14/2022 [facility] Work Phone: Comment on above: Expected: 09/14/2022 , Expires: 11/14/2022 Start: 07-23-2022 End: 08-06-2022 Influenza virus A and B RNA and SARS-CoV-2 (COVID-19) N gene panel - Respiratory specimen by COBY with probe detection [facility] Work Phone: Comment on above: Expected: 07/23/2022 , Expires: 08/06/2022 Start: 06-07-2022 Influenza vaccination [facility] Start: 06-05-2022 HEMOGLOBIN/HEMATOCRIT HEMOGLOBIN/HEM ATOCRIT [facility] Start: 06-05-2022 SERUM CREATININE SERUM CREATININE Cl [facility] Start: 04-18-2022 KIDFUVMED, Provider: Matthew Sellers, Status: Pen, Time: 8:40 AM LOTUSFUVMALECIA, Provider: Matthew Sellers, Status: Pen, Time: 8:40 AM [id number]-Tje her Work Phone: Start: 02-20-2022 End: 04-22-2022 Magnesium [Mass/volume] in Serum or Plasma MAGNESIUM BLD Lab Routine Gastroesophageal reflux disease without esophagitis Expected: 02/20/2022, Expires: 04/22/2022 [facility] Work Phone: Comment on above: Expected: 02/20/2022 , Expires: 04/22/2022 Start: 06-07-2021 Influenza vaccination Flu vaccine (S suzy Ended) [facility] Work Phone: Start: 04-25-2021 Hepatitis B surface antibody level LDL CHOLESTEROL [facility] Start: 11-03-2020 CBC W Auto Different ial panel - Blood Complete Blood Count XS-Dxjhlhljrk-Jes her Work Phone: Comment on above: To be Done: Recurrin g Schedule: 02/01/2021, 05/03/2021 ... Start: 11-03-2020 Tacrolimus (Bld) [Mass/Vol] Tacrolimus XB-Mcdrnsnqge-Lki her Work Phone: Comment on above: To be Done: Recurrin g Schedule: 02/01/2021, 05/03/2021 ... Start: 11-03-2020 Urea, electrolytes a nd creatinine measurement Renal Function Panel [id number]-Tgbrkuaqwb-Qyp her Work Phone: Comment on above: To be Done: Recurrin g Schedule: 02/01/2021, 05/03/2021 ... Start: 06-07-2020 Influenza vaccination M [place], [place] Start: 10-06-2019 DTaP/Tdap/Td vaccine (2 - Td) DTaP/Tdap/Td vaccine (2 - Td) [place], [place] Start: 2019 Screening for malign ant neoplasm of colon Colon cancer screen colonoscopy [place], [place] Start: 2019 Shingles Vaccine (1 of 2) Shingles Vaccine (1 of 2) [place] Start: 2019 SHINGRIX VACCINE (1 of 2) SHINGRIX VACCINE (1 of 2) [facility] Start: 02-15-2019 Creatinine measurement Creatinine mo nitoring [place], [place] Start: 02-15-2019 Potassium monitoring Potassium monit oring [place] Start: 12-28-2018 Lipid panel Lipid screen [place], [place] Start: 2014 COLOGUARD (FIT-DNA) COLOGUARD (FIT-D NA) [facility] Start: [address] COLONOGRAPHY [facility] Start: 2014 FECAL OCCULT BLOOD FECAL OCCULT BLOO D [facility] Start: 2014 Screening for malign ant neoplasm of colon [facility] Start: 2014 SIGMOIDOSCOPY SIGMOIDOSCOPY [facility] Start: 12-05-2012 PNEUMOCOCCAL (2 - PCV) PNEUMOCOCCAL (2 - PCV) [facility] Start: 12-05-2012 Pneumococcal 0-64 ye ars Vaccine (2 of 3 - PCV13) Pneumococcal 0-64 years Vaccine (2 of 3 - PCV13) [place] Start: 12-05-2012 Pneumococcal 0-64 ye ars Vaccine (3 of 3 - PCV13) Pneumococcal 0-64 years Vaccine (3 of 3 - PCV13) [facility] Work Phone: Start: 12-05-2012 Pneumococcal vaccination [facility] Start: 12-05-2012 Pneumococcal Vaccine : Pediatrics (0 to 5 Years) and At-Risk Patients (6 to 64 Years) (3 - PCV) Pneumococcal Vaccine: Pediatrics (0 to 5 Years) and At-Risk Patients (6 to 64 Years) (3 - PCV) [facility] Start: 12-05-2012 Pneumococcal Vaccine : Pediatrics (0 to 5 Years) and At-Risk Patients (6 to 64 Years) (3 of 3 - PCV) Pneumococcal Vaccine: Pediatrics (0 to 5 Years) and At-Risk Patients (6 to 64 Years) (3 of 3 - PCV) [facility] Start: 10-07-2009 Urine microalbumin profile [facility] Start: 02-19-1988 Hepatitis B Vaccines (1 of 3 - 19+ 3-dose series) Hepatitis B Vaccines (1 of 3 - 19+ 3-dose series) [facility] Start: 02-19-1988 SHINGRIX VACCINE (1 of 2) SHINGRIX VACCINE (1 of 2) [facility] Start: 02-19-1988 Urine screening for protein CKD: Urine Protein Screening [facility] Start: 02-19-1988 Zoster Vaccines (1 o f 2) Zoster Vaccines (1 of 2) [facility] Start: 1987 Anxiety Screening Anxiety Screening [facility] Start: 1987 Diabetes mellitus screening Diabetes Screening [facility] Start: 1987 HEPATITIS C SCREENING HEPATITIS C [facility] Start: 1987 Hepatitis C screening Hepatitis C [facility] Start: 1987 HIV SCREENING HIV SCREENING [facility] Start: 1987 HIV screening HIV Screening [facility] Start: 1985 COVID-19 Vaccine (1) COVID-19 Vaccin e (1) [facility] Work Phone: Start: 02-19-1984 HIV screening HIV screen [facility] [place] Start: 1981 Depression Screening Depression Scre ening [facility] Start: 1974 COVID-19 VACCINE (#1) COVID-19 VACCI NE (#1) [facility] Start: 1970 MMR Vaccines (1 of 1 - Standard series) MMR Vaccines (1 of 1 - Standard series) [facility] Start: 1969 COVID-19 VACCINE (#1) COVID-19 VACCI NE (#1) [facility] Start: 1969 Echocardiography Echocardiogram [facility] Start: 1969 HEPATITIS B (1 of 3 - 3-dose series) HEPATITIS B (1 of 3 - 3-dose series) [facility] Start: 1969 Hepatitis B Vaccine (1 of 3 - 3-dose series) Hepatitis B Vaccine (1 of 3 - 3-dose series) [facility] Start: 1969 Hepatitis B Vaccines (1 of 3 - 3-dose series) Hepatitis B Vaccines (1 of 3 - 3-dose series) [facility] Start: 1969 Hepatitis C screening Hepatitis C sc reen [facility] Work Phone: Start: 1969 HIV screening HIV Screening [facility] Start: 1969 Lipid panel Lipid Panel [facility] [place] Start: 1969 Screening for malign ant neoplasm of colon [facility] Start: 1969 Screening for osteoporosis Bone Density Scan [facility] Start: 1969 Statin Therapy Statin Therapy [place], [place] Start: 1969 Thyroid stimulating hormone measurement [facility] Start: 1969 TSH Qn [place] Start: 1969 Yearly Adult Physical Yearly Adult P [facility] End: 11-13-2024 25-hydroxyvitamin D3 [Mass/volume] in Serum or Plasma Vitamin D 25-Hydroxy,Total (for eval of Vitamin D levels) Lab Routine Kidney replaced by transplant Essential hypertension Vitamin D deficiency Hyperparathyroidism (CMS/HCC) Benign prostatic hyperplasia without lower urinary tract symptoms every 3 months for 4 Occurrences starting 11/13/2023 until 11/13/[address] [facility] Work Phone: Comment on above: every 3 months for 4 Occurrences starting 11/13/2023 until 11/13/2024 End: 11-13-2024 CBC panel - Blood by Automated count CBC Lab Routine Kidney replaced by transplant Essential hypertension Vitamin D deficiency Hyperparathyroidism (CMS/HCC) Benign prostatic hyperplasia without lower urinary tract symptoms every 3 months for 4 Occurrences starting 11/13/2023 until 11/13/[address] [facility] Work Phone: Comment on above: every 3 months for 4 Occurrences starting 11/13/2023 until 11/13/2024 End: 11-13-2024 Creatinine [Mass/volume] in Urine Creatinine, Urine Random Lab Routine Kidney replaced by transplant Essential hypertension Vitamin D deficiency Hyperparathyroidism (CMS/HCC) Benign prostatic hyperplasia without lower urinary tract symptoms every 3 months for 4 Occurrences starting 11/13/2023 until 11/13/[address] [facility] Work Phone: Comment on above: every 3 months for 4 Occurrences starting 11/13/2023 until 11/13/2024 End: 10-15-2023 Dxa bone density study axial skeleton DXA-AXIAL SKELETON WITH VFA Radiology Routine H/O kidney transplant Hyperparathyroidism (HCC) Renal failure, chronic, stage 3 (moderate) (HCC) Other osteoporosis without current pathological fracture 1 Occurrences starting 09/15/2022 until 10/15/2023 [facility] Work Phone: Comment on above: 1 Occurrences starti ng 09/15/2022 until 10/15/2023 End: 12-11-2023 ECG COMPLETE ECG COMPLETE ECG Routine Pre-operative examination 1 Occurrences starting 12/10/2022 until 12/11/2023 [facility] Work Phone: Comment on above: 1 Occurrences starti ng 12/10/2022 until 12/11/2023 ECG COMPLETE ECG COMPLETE ECG 12/10/2022 4:54 PM EST [facility] End: 12-19-2023 ECG COMPLETE ECG COMPLETE ECG Routine Coronary artery disease involving te-moak coronary artery of te-moak heart without angina pectoris Essential hypertension Dyslipidemia Pre-operative cardiovascular examination 1 Occurrences starting 12/18/2022 until 12/19/2023 [facility] Work Phone: Comment on above: 1 Occurrences starti ng 12/18/2022 until 12/19/2023 End: 12-19-2023 Echocardiography ECHO Cardiology Routine Coronary artery disease involving te-moak coronary artery of te-moak heart without angina pectoris Essential hypertension Dyslipidemia Pre-operative cardiovascular examination 1 Occurrences starting 12/18/2022 until 12/19/2023 [facility] Work Phone: Comment on above: 1 Occurrences starti ng 12/18/2022 until 12/19/2023 Influenza virus A an d B RNA and SARS-CoV-2 (COVID-19) N gene panel - Respiratory specimen by COBY with probe detection COVID WITH FLUA+B, ROUTINE Microbiology Routine COPD with exacerbation (HCC) 03/20/2023 12:07 PM EDT [facility] Work Phone: End: 11-13-2024 Magnesium [Mass/volume] in Serum or Plasma Magnesium Lab Routine Kidney replaced by transplant Essential hypertension Vitamin D deficiency Hyperparathyroidism (CMS/HCC) Benign prostatic hyperplasia without lower urinary tract symptoms every 3 months for 4 Occurrences starting 11/13/2023 until 11/13/[address] [facility] Work Phone: Comment on above: every 3 months for 4 Occurrences starting 11/13/2023 until 11/13/2024 Mri any jt upper extremity w/o contrast matrl MRI SHOULDER WO IVCON LT Radiology Routine Acute pain of left shoulder Traumatic tear of left rotator cuff, unspecified tear extent, initial encounter Ordered: 05/21/2022 [facility] Work Phone: Comment on above: Ordered: 05/21/2022 End: 11-13-2024 Parathyrin.intact [Mass/volume] in Serum or Plasma Parathyroid Hormone, Intact Lab Routine Kidney replaced by transplant Essential hypertension Vitamin D deficiency Hyperparathyroidism (CMS/HCC) Benign prostatic hyperplasia without lower urinary tract symptoms every 3 months for 4 Occurrences starting 11/13/2023 until 11/13/[address] [facility] Work Phone: Comment on above: every 3 months for 4 Occurrences starting 11/13/2023 until 11/13/2024 POST VOID RESIDUAL POST VOID RES IDUAL Procedures Routine Benign prostatic hyperplasia with urinary obstruction Ordered: 03/06/2022 [facility] Work Phone: Comment on above: Ordered: 03/06/2022 End: 11-13-2024 Protein, Urine Random Protein, Urine Random Lab Routine Kidney replaced by transplant Essential hypertension Vitamin D deficiency Hyperparathyroidism (CMS/HCC) Benign prostatic hyperplasia without lower urinary tract symptoms every 3 months for 4 Occurrences starting 11/13/2023 until 11/13/[address] [facility] Work Phone: Comment on above: every 3 months for 4 Occurrences starting 11/13/2023 until 11/13/2024 PT ED HEART AND VASCULAR PT ED HEART AND VASCULAR Other 07/07/2024 [facility] Work Phone: End: 11-13-2024 Renal function 2000 panel - Serum or Plasma Renal Function Panel Lab Routine Kidney replaced by transplant Essential hypertension Vitamin D deficiency Hyperparathyroidism (CMS/HCC) Benign prostatic hyperplasia without lower urinary tract symptoms every 3 months for 4 Occurrences starting 11/13/2023 until 11/13/[address] [facility] Work Phone: Comment on above: every 3 months for 4 Occurrences starting 11/13/2023 until 11/13/2024 End: 11-13-2024 Tacrolimus [Mass/volume] in Blood Tacrolimus Lab Routine Kidney replaced by transplant Essential hypertension Vitamin D deficiency Hyperparathyroidism (CMS/HCC) Benign prostatic hyperplasia without lower urinary tract symptoms every 3 months for 4 Occurrences starting 11/13/2023 until 11/13/2024 [facility] Service Area Work Phone: Comment on above: every 3 months for 4 Occurrences starting 11/13/2023 until 11/13/2024 URODYNAMICS URODYNAMICS Proc edures Routine Benign prostatic hyperplasia with urinary obstruction Ordered: 03/06/2022 [facility] Work Phone: Comment on above: Ordered: 03/06/2022 End: 02-02-2025 US Upper extremity artery - bilateral US ARM ARTERIAL [facility] Vascular Lab Routine Peripheral vascular disease (HCC) 1 Occurrences starting 02/03/2024 until 02/02/2025 [facility] Comment on above: 1 Occurrences starti ng 02/03/2024 until 02/02/2025 End: 02-02-2025 US Upper extremity veins - bilateral US ARM VEIN DVT [facility] Vascular Lab Routine Peripheral vascular disease (HCC) 1 Occurrences starting 02/03/2024 until 02/02/2025 [facility] Work Phone: Comment on above: 1 Occurrences starti ng 02/03/2024 until 02/02/2025 End: 04-30-2025 XR Chest PA and Lateral XR CHEST 2V FRONTAL/LAT Radiology Routine Pneumonia of right lower lobe due to infectious organism 1 Occurrences starting 03/31/2024 until 04/30/2025 [facility] Work Phone: Comment on above: 1 Occurrences starti ng 03/31/2024 until 04/30/2025 XR Chest PA and Lateral XR CHEST 2V FRONTAL/LAT Radiology Routine Pneumonia of right lower lobe due to infectious organism 03/31/2024 9:03 AM EDT [facility] NEGATED: Highlighted row has been ruled out! Planned Goals not documented [id number]-Qfa her Work Phone: Immunizations Immunization Date Immunization Notes Care Provider Fa [facility] 09-26-2023 pneumococcal conjuga te (PCV20) vaccine, 20 valent (PREVNAR 20) Nikki Ramírez MA [facility] 01-24-2022 tetanus toxoid, redu miroslava diphtheria toxoid, and acellular pertussis vaccine, adsorbed Nikki Ramírez MA [facility] 08-28-2018 influenza, seasonal, injectable, preservative free Nikki Ramírez MA [facility] 08-28-2018 influenza virus vacc ine, unspecified formulation Aura Anderson PA-C Work Phone: [facility] 08-07-2018 influenza, injectabl e, quadrivalent, contains preservative Sawyer Lawson PA-C Work Phone: [facility] Work Phone: 12-06-2011 pneumococcal polysaccharide vaccine, 23 valent Andreas Vegas [facility] 10-06-2009 tetanus and diphther ia toxoids, not adsorbed, for adult use Sawyer Lawson PA-C Work Phone: [facility] 10-06-2009 tetanus toxoid, redu miroslava diphtheria toxoid, and acellular pertussis vaccine, adsorbed [facility] [place] 08-07-2008 pneumococcal polysaccharide vaccine, 23 valent Nikki Ramírez MA [facility] Payers Date Payer Category Payer Unknown [id number] 2020 Unknown 2020 Unknown [employer] BLUE ACCE SS PPO [id number] 2020-Present [phone] [address] [place] [address] PPO [id number] 2016 Unknown BCBS [employer]I C[employer] SUPP xxxxxxxxxxxx 2016-Present [address] [place] [address] xxxxxxxxxxxx [id number] 2016 Unknown [id number] .[id number] 1969 Unknown [id number] 2.16.840.1.448556.3.579.2.668 1969 Unknown [id number] 2.16.840.1.914582.3.579.2.668 1969 Unknown [id number] 2.16.840.1.973994.3.579.2.668 1969 Unknown [id number] 2.16.840.1.096741.3.579.2.124 3 1969 Unknown [id number] 2.16.840.1.317816.3.579.2.627 1969 Unknown [id number] 2.16.840.1.673466.3.579.2.124 4 1969 Unknown [id number] 2.16.840.1.664642.3.579.2.124 4 1969 Unknown [id number] 2.16.840.1.538834.3.579.2.627 1969 Unknown [id number] 2.16.840.1.941854.3.579.2.627 1969 Unknown [id number] 2.16.840.1.165189.3.579.2.627 1969 Unknown [id number] 2.16.840.1.820141.3.579.2.627 1969 Unknown [id number] 2.16.840.1.240198.3.579.2.124 1969 Unknown [id number] 2.16.840.1.052217.3.579.2.124 1969 Unknown [id number] 2.16.840.1.237845.3.579.2.124 1969 Unknown [id number] 2.16.840.1.253393.3.579.2.124 1969 Unknown [id number] 2.16.840.1.396709.3.579.2.124 1969 Unknown [id number] 2.16.840.1.724895.3.579.2.124 1969 Unknown [id number] 2.16.840.1.913126.3.579.2.124 1969 Unknown [id number] 2.16.840.1.304642.3.579.2.124 1969 Unknown [id number] 2.16.840.1.030452.3.579.2.124 1969 Unknown [id number] 2.16.840.1.814419.3.579.2.124 1969 Unknown [id number] 2.16.840.1.248093.3.579.2.124 1969 Unknown [id number] 2.16.840.1.356700.3.579.2.124 1969 Unknown [id number] 2.16.840.1.256518.3.579.2.124 5 Medicare [id number] Social History Date Type Detail Facility Assertion Unknown if ever smoked [facility] [place] [address] Work Phone: Start: 03-01-2020 End: 04-27-2024 Tobacco smoking status NHIS Former smoker [facility] Start: 09-06-1996 End: 09-06-2011 History of tobacco use Current smoker [facility] Start: 09-06-1996 End: 09-06-2011 History of tobacco use Cigarette Smoker [facility] Start: 03-01-2020 End: 06-16-2024 Cigarettes smoked current (pack per day) - Reported [facility] History of tobacco use Chews Tobacco SETiT Start: 03-01-2020 End: 07-07-2024 Alcohol intake Current non-drinker of alcohol (finding) [facility] Start: 1970 Sex Assigned At Not on file [facility] Exposure to SARS-CoV -2 (event) Unable to assess [facility] Start: 03-01-2020 End: 04-27-2024 Tobacco use and exposure Current user [place] Start: 11-15-2020 End: 09-09-2022 History SDOH Alcohol Frequency 1 [facility] Start: 11-15-2020 History SDOH Alcohol Std Drinks 98 [facility] Start: 11-15-2020 History SDOH Social Connections Phone 4 [facility] Start: 11-15-2020 End: 09-09-2022 History SDOH Social Connections Get Together 2 [facility] Start: 11-15-2020 End: 09-09-2022 History SDOH Social Connections Living 3 [facility] Start: 11-15-2020 End: 09-09-2022 History SDOH Financial 5 [facility] Start: 11-15-2020 Education 10 [facility] Start: 1970 Sex Assigned At Male [facility] Start: 07-21-2020 End: 06-29-2024 Exposure to SARS-CoV-2 (event) Not sure [facility] Start: 09-09-2022 History SDOH Alcohol Std Drinks 0 [facility] Start: 09-09-2022 History SDOH Physical Activity MPS 6 [facility] Start: 05-27-2023 End: 06-16-2024 Gender identity Not on file [facility] Do you belong to any clubs or organizations such as mandaen groups, unions, fraternal or athletic groups, or school groups? No [facility] Are you now , , , , never or living with a partner? [facility] How often to you hav e a drink containing alcohol? Never [facility] How many standard dr inks containing alcohol do you have on a typical day? Patient does not drink [facility] Do you feel stress - tense, restless, nervous, or anxious, or unable to sleep at night because your mind is troubled all the time - these days [OSQ] To some extent [facility] (I/We) worried dean mukherjee (my/our) food would run out before (I/we) got money to buy more. Never true [facility] Start: 05-14-2021 Gender identity Identifies as male gender (finding) [facility] Start: 05-14-2021 Sexual orientation Heterosexual (finding) [facility] Tobacco smoking stat us [facility] Tobacco smoking consumption unknown [facility] Work Phone: Start: 05-07-2024 Tobacco smoking status LAIS Smokes tobacco daily [facility] Start: 05-07-2024 Tobacco Comment Chew tobacco [facility] Do you feel stress - tense, restless, nervous, or anxious, or unable to sleep at night because your mind is troubled all the time - these days [OSQ] Not at all [facility] History of tobacco use Passive smoker [facility] Work Phone: How hard is it for y ou to pay for the very basics like food, housing, medical care, and heating Not very hard [facility] Work Phone: Do you feel stress - tense, restless, nervous, or anxious, or unable to sleep at night because your mind is troubled all the time - these days [OSQ] Very much [facility] Work Phone: Medical Equipment Procedure Code Equipment Code Equipment Origin al Text Equipment Identifier Dates [place] [employer] Suturetape 5.5mm Full Thread 1.3mm Black Blue White - [id number] Start: 01-03-2023 [place] [employer]kscrew Suturetape 5.5mm Full Thread 1.3mm Black Blue White - [id number] Start: 01-03-2023 Suture [place] Bi[employer]po Swivelock 4.75mm X 22mm [id number] Start: 01-03-2023 Suture [place] [employer] Swivelock 4.75mm X 22mm [id number] Start: 01-03-2023 Goals Date Patient Goal Desired Activity /State Personal health goal Personal health goal Functional Status Date Assessment Result Facility 07-03-2024 Functional Status 100 [facility] 07-03-2024 Functional Status Room check performed [facility] 07-03-2024 Functional Status [facility] 07-03-2024 Functional Status [facility] 07-03-2024 Functional Status [facility] 07-02-2024 Functional Status [facility] 07-02-2024 Functional Status 4 with no HR indep [facility] 07-01-2024 Functional Status [facility] 07-01-2024 Functional Status [facility] 07-01-2024 Functional Status [facility] 07-01-2024 Functional Status Done [facility] 06-30-2024 Functional Status Antiembolism S tocking Off/Removed bilateral knee high [facility] 06-30-2024 Functional Status [facility] 06-30-2024 Functional Status Lunch Percent [address] [facility] 06-30-2024 Functional Status Children are n ot in the area.- 2 kids - [employer] and [facility] Hobbies: Golf and relax 3 dogs and 2 cats at home. Pt has a deck off of back door so he normally puts on a leash that is attached to the ground . DOes not have to walk them on the [facility] 06-30-2024 Functional Status [facility] 06-30-2024 Functional Status [facility] 06-29-2024 Functional Status 1st floor bedr oom, 1st floor bathroom [facility] [place] 06-29-2024 Functional Status [facility] 06-29-2024 Functional Status [facility] 06-28-2024 Functional Status [facility] 06-27-2024 Functional Status [facility] 06-27-2024 Functional Status [facility] 06-26-2024 Functional Status [facility] 06-26-2024 Functional Status N/A [facility] 06-25-2024 Functional Status [facility] NEGATED: Highlighted row Functional performance Functional status health issues are not documented Disease BT-Aejgxhtnws-FZRO [facility] [employer] [facility] [address] Work Phone: Mental Status Date Assessment Result Facility 07-03-2024 Mental Status Oriented x 4 [facility] 07-02-2024 Mental Status [facility] 07-02-2024 Mental Status [facility] 07-02-2024 Mental Status [facility] NEGATED: Highlighted row Cognitive function [Interpretation] Cognitive status health issues are not documented Disease [facility] [place] [address] Work Phone: Clinical Notes 08-20-2020 to 07-17-2024 Verónica Tatum, DO - 07/17/2024 10:40 AM EDTTelephone Encounter - Alysha Marley APRN.HARDBOARD PANEL PRINTER - 07/15/2024 1:08 PM EDTTelephone Encounter - Alysha Marley APRN.HARDBOARD PANEL PRINTER - 07/15/2024 1:08 PM EDT Note Date & Type Note Facility 07-17-2024 History of Present illness Narrative Infectious Diseases Clinic Follow-up: Reason for Visit: follow up UTI, Pseudomonas bacteremia History of Current Issue Marian Koch is a 54 y.o. man pmhx sig for reflux nephropathy and ESRD s/p DDKT x 2 (1993, 2009) on tacrolimus, MMF and prednisone, CAD s/p CABG x 4, Factor V leiden, RUE DVT, recent admission to [facility] from 06/14-06/26 from OSH for septic shock due to Pseudomonas bacteremia and UTI. Admitted to CICU due to troponin elevation suspected due to NSTEMI from septic shock. He defervesced with broad spectrum abx and cultures ultimately w/ madison-sens Pseudomonas. He was discharged on meropenem x 4 weeks, tentative end date 07/15. He underwent tunneled PICC line placement. He was discharged to a rehab facility and has been home now about 2 weeks. Has been discharged from PT/OT. Speaking with him today, he reports no issues w/ the PICC, no redness or difficulty w/ infusions. His has been helping w/ these twice/day. He has some diarrhea 1x/day which he associates with the abx, no rash, otherwise tolerating well. Appetite is back, no fever/chills, no abd pain. Still fatigued. He was discharged with a Machado catheter and is following w/ Urology for planned cystoscopy. PAST MEDICAL HISTORY: No past medical history on file. PAST SURGICAL HISTORY: Past Surgical History: Procedure Laterality Date CARDIAC CATHETERIZATION N/A 05/26/2024 Procedure: Left Heart Cath; Surgeon: Alli Pardo MD; Location: [place] [address] Cardiac Orthopedic Cast Specialist; Service: Cardiovascular; Laterality: N/A; CARDIAC CATHETERIZATION N/A 05/26/2024 Procedure: PCI ROJELIO Stent- Coronary; Surgeon: Alli Pardo MD; Location: [place] [address] Cardiac Orthopedic Cast Specialist; Service: Cardiovascular; Laterality: N/A; CARDIAC CATHETERIZATION N/A 06/14/2024 Procedure: [place] Insertion; Surgeon: Desmond Bunn MD; Location: [place] [address] Cardiac Orthopedic Cast Specialist; Service: Cardiovascular; Laterality: N/A; ALLERGIES: Allergies Allergen Reactions Bee Venom Protein (Honey Bee) Hives and Swelling Darvocet A500 [Propoxyphene N-Acetaminophen] Hives MEDICATIONS: Current Outpatient Medications: albuterol 90 mcg/actuation inhaler, Inhale 2 puffs every 6 hours if needed., Disp: , Rfl: apixaban (Eliquis) 5 mg tablet, Take 1 tablet (5 mg) by mouth every 12 hours., Disp: 120 tablet, Rfl: 0 atorvastatin (Lipitor) 80 mg tablet, Take 1 tablet (80 mg) by mouth once daily., Disp: 90 tablet, Rfl: 3 capsaicin (Zostrix) 0.025 % cream, Apply topically 2 times a day., Disp: , Rfl: cholecalciferol (Vitamin D3) 50 mcg (2,000 unit) capsule, Take 2 capsules (100 mcg) by mouth early in the morning.., Disp: 180 capsule, Rfl: 3 clopidogrel (Plavix) 75 mg tablet, Take 1 tablet (75 mg) by mouth once daily., Disp: 30 tablet, Rfl: 11 darbepoetin sridevi (Aranesp) 60 mcg/0.3 mL injection, Inject 0.3 mL (60 mcg total) under the skin 1 (one) time per week. Hold for hemoglobin 11 or greater, Disp: 1.2 mL, Rfl: 11 doxazosin (Cardura) 4 mg tablet, Take 2 tablets (8 mg) by mouth once daily at bedtime., Disp: 60 tablet, Rfl: 3 gabapentin (Neurontin) 300 mg capsule, Take 1 capsule (300 mg) by mouth 2 times a day., Disp: 60 capsule, Rfl: 11 ipratropium-albuteroL (Duo-Neb) 0.5-2.5 mg/3 mL nebulizer solution, Take 3 mL by nebulization every 6 hours if needed., Disp: , Rfl: isosorbide mononitrate ER (Imdur) 60 mg 24 hr tablet, Take 1 tablet (60 mg) by mouth once daily. Do not crush or chew., Disp: , Rfl: lidocaine 4 % patch, Place 1 patch over 12 hours on the skin once daily. Remove & discard patch within 12 hours or as directed by MD., Disp: , Rfl: melatonin 5 mg tablet, Take 1 tablet (5 mg) by mouth once daily., Disp: , Rfl: metoprolol tartrate (Lopressor) 25 mg tablet, Take 1 tablet (25 mg) by mouth 2 times a day., Disp: , Rfl: nystatin (Mycostatin) 100,000 unit/gram powder, Apply 1 Application topically 2 times a day., Disp: , Rfl: pantoprazole (ProtoNix) 40 mg EC tablet, Take 1 tablet (40 mg) by mouth once daily in the morning. Take before meals. Do not crush, chew, or split., Disp: , Rfl: predniSONE (Deltasone) 5 mg tablet, Take 1 tablet (5 mg) by mouth once daily., Disp: 90 tablet, Rfl: 3 tacrolimus ER (Envarsus XR) 0.75 mg tablet ER, Take 2 tablets (1.5 mg) by mouth once daily in the morning., Disp: 60 tablet, Rfl: 1 REVIEW OF SYSTEMS: per HPI PHYSICAL EXAMINATION: Visit Vitals Smoking Status Former EXAM: On the video pt appears well, speaking in full sentences, NAD DATA: Laboratory Values and Test Results: Reviewed from recent home health labs; Cr at baseline, slightly improved, no leukocytosis, plt count remains low; ESR and CRP wnl Microbiology: Susceptibility data from last 90 days. Collected Specimen Info Organism Aztreonam Cefepime Ceftazidime Ciprofloxacin Levofloxacin Piperacillin/Tazobactam Tobramycin 06/14/24 Blood culture from Peripheral Arterial Puncture Pseudomonas aeruginosa S S S S S S S Staphylococcus epidermidis Other Relevant Studies: Imaging Studies: ASSESSMENT / RECOMMENDATIONS: Marian Koch is a 54 y/o man pmhx sig for reflux nephropathy and ESRD s/p DDKT x 2 (1993, 2009) on tacrolimus, MMF and prednisone, CAD s/p CABG x 4, Factor V leiden, RUE DVT, recent admission to [facility] from 06/14-06/26 from OSH for septic shock due to Pseudomonas bacteremia and UTI. Treated with 4 weeks of meropenem, which had been started empirically and he was continued on this at discharge (noted to have prolonged Qtc precluding fluoroquinolone use). He had tunneled PICC placement which will need removal by Radiology (lives [facility] or [place]). Prior to admission pt had been straight catheterizing intermittently, but since discharge has had a Machado catheter in place until he has cystoscopy w/ Urology. We discussed possible infection prevention measures, including optimizing any structural urologic issues (which he is addressing with Urology), as well as considering methenamine, antibiotic ppx, and modulating his immunosuppression. He has follow up with his Transplant sap abap programmer on 07/22 and I encouraged him to bring these up. At this time, he has undergone a prolonged course of IV abx for his bacteremia and UTI, which I think he can complete at this time. #Pseudomonas UTI and bacteremia #S/p DDKT Recommendations: -Complete IV meropenem therapy -Order placed for removal of tunneled PICC w/ IR -Discuss preventative measures at his upcoming Transplant appt I did not schedule a follow up appt for him with ID at this time, however I told him if he has any questions or new concerns I am happy to see him back at any time. Verónica Tatum DO documented in this encounter [facility] Work Phone: 07-15-2024 Telephone encounter Note Noted. Alysha Marley APRN.HARDBOARD PANEL PRINTER [facility] 07-15-2024 Miscellaneous Notes Noted. Alysha Marley APRN.HARDBOARD PANEL PRINTER Johnny PT with [facility] calling, patient will be discharged today from in home PT. Patient is doing very well. documented in this encounter [facility] 07-15-2024 Telephone encounter Note Johnny PT with [facility] calling, patient will be discharged today from in home PT. Patient is doing very well. [facility] 07-10-2024 Telephone encounter Note Signed cardiac rehab order faxed to [facility]. Nikki Ramírez MA July 10, 2024 2:15 PM [facility] 07-10-2024 Miscellaneous Notes Signed cardiac rehab order faxed to [facility]. Nikki Ramírez MA July 10, 2024 2:15 PM Home Health nurse off today. Faxed information to Nephro for injection. Pt also asked for Cardiac rehab order to be faxed to [facility], order placed on provider desk to be signed Nikki Ramírez MA July 10, 2024 12:04 PM Upon further review, on pt's rehab discharge instructions, pt has virtual visit on 07/17/24 with Infectious disease, Dr Tatum on 07/17/24 at 10:40 am. Appt with Transplant team, Dr Sellers, nephrology, on 07/22/24 at 8 am. Urology, Dr Janel Vega on 08/03/24 at 3 pm. I will call home health nurse tomorrow. Pt notified of xray results. His sap abap programmer is Dr Sellers, I will fax over the office visit note, along with the rehab records to get his injections started. Pt is calling nephrology as well to set up his follow up. Also, please let him know that he does not have a pneumonia. He does have some fluid in the right lung base that has accumulated from fluid overload. It is mild. Remember to take some deep cleansing breaths to expand that lung base. Surgery forI will order this. 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 He needs a follow up with nephrology. Does he have a doctor that he follows with? Please get an appt. [facility]. They should be following this. Not usually a Primary Care Management. We aren't even getting the necessary labs done by [facility] weekly? Charu reports that patient does not have medication at home and is checking with pharmacy about availability of rock picker. Charu is not sure if this is new to him or not? Also not sure of who ordered? She thought that maybe we could check with family? Please contact [facility] and ask if they are giving darbepoetin? Pt. Was to get it weekly. Not sure who ordered it... usually renal Also, we would like a copy of hospital discharge and weekly labs Discharge order: darbepoetin 60 mcg (0.3ml) injection weekly Charu RN calling from [facility] to report plan of care for patient and SN will visit patient one time a week for six weeks. SN will work with patient on PICC Care, Labs, and medication management/education. No call back needed unless provider has questions at [phone]. Courtney Klein RN Johnny PT calling from [facility] to report plan of care for patient and PT will visit patient one time a week for first week and one time a week for one week. Johnny reports that patient is getting around fairly well and didn't identify any PT needs. Will check back with patient one more time next week to make sure nothing changes. No call back needed unless provider has questions [phone]. Courtney Klein RN documented in this encounter [facility] 07-10-2024 Telephone encounter Note Home Health nurse off today. Faxed information to Nephro for injection. Pt also asked for Cardiac rehab order to be faxed to [facility], order placed on provider desk to be signed Nikki Ramírez MA July 10, 2024 12:04 PM [facility] 07-09-2024 Telephone encounter Note Upon further review, on pt's rehab discharge instructions, pt has virtual visit on 07/17/24 with Infectious disease, Dr Tatum on 07/17/24 at 10:40 am. Appt with Transplant team, Dr Sellers, nephrology, on 07/22/24 at 8 am[address] Urology, Dr Janel Vega on 08/03/24 at 3 pm. I will call home health nurse tomorrow. [facility] 07-09-2024 Telephone encounter Note Pt notified of xray results. His sap abap programmer is Dr Sellers, I will fax over the office visit note, along with the rehab records to get his injections started. Pt is calling nephrology as well to set up his follow up. [facility] 07-09-2024 Telephone encounter Note Stephany with [facility] called to let you know they did an evaluation today for OT and pt is all ready doing the ADLs independently so no further OT is needed. Evaluation done only. No call back needed. Sarah Landa LPN [facility] 07-09-2024 Miscellaneous Notes Stephany with [facility] called to let you know they did an evaluation today for OT and pt is all ready doing the ADLs independently so no further OT is needed. Evaluation done only. No call back needed. Sarah Landa LPN documented in this encounter [facility] 07-09-2024 Telephone encounter Note Also, please let him know that he does not have a pneumonia. He does have some fluid in the right lung base that has accumulated from fluid overload. It is mild. Remember to take some deep cleansing breaths to expand that lung base. [facility] 07-09-2024 Telephone encounter Note Surgery forI will order this. 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 He needs a follow up with nephrology. Does he have a doctor that he follows with? Please get an appt. JACINTO. They should be following this. Not usually a Primary Care Management. We aren't even getting the necessary labs done by [facility] weekly? [facility] 07-08-2024 Telephone encounter Note Charu reports that patient does not have medication at home and is checking with pharmacy about availability of rock picker. Charu is not sure if this is new to him or not? Also not sure of who ordered? She thought that maybe we could check with family? [facility] 07-07-2024 Telephone encounter Note Please contact Charu and ask if they are giving darbepoetin? Pt. Was to get it weekly. Not sure who ordered it... usually renal Also, we would like a copy of hospital discharge and weekly labs Discharge order: darbepoetin 60 mcg (0.3ml) injection weekly [facility] 07-07-2024 History of Present illness Narrative Radiology Service Progress Note PATIENT NAME: Marian Koch DATE OF SERVICE: July 07, 2024 TIME: 4:48 PM PATIENT IDENTITY VERIFICATION COMPLETED USING TWO (2) IDENTIFIERS: Name and Date of confirmed by patient verbally. FALL SCREENING: Has the patient had 2 falls in the last year or 1 fall with injury or currently using an Ambulatory Assistive Device (Walker, Cane, Wheelchair, Crutches, etc.)? No PATIENT GENDER DATA: Male PATIENT RELEVANT IMPLANT DATA REVIEWED: Yes PATIENT PRESENTS WITH AN IMPLANTABLE OR ATTACHED SECOND OFFICER: No RADIOLOGY DEPARTMENT: General X-ray: Exam(s) Completed: Chest X-Ray PERIPHERAL IV DATA: Not applicable SIGNED BY: KOURTNEY Lozada) July 07, 2024 4:48 PM documented in this encounter [facility] 07-07-2024 Note HNO ID: [id number] Author: SAEED OLIVERA RT (R) Service: Radiology Author Type: Technologist Type: Progress Notes Filed: 07/07/2024 16:54 Note Text: Radiology Service Progress Note PATIENT NAME: Marian Koch DATE OF SERVICE: July 07, 2024 TIME: 4:48 PM PATIENT IDENTITY VERIFICATION COMPLETED USING TWO (2) IDENTIFIERS: Name and Date of confirmed by patient verbally. FALL SCREENING: Has the patient had 2 falls in the last year or 1 fall with injury or currently using an Ambulatory Assistive Device (Walker, Cane, Wheelchair, Crutches, etc.)? No PATIENT GENDER DATA: Male PATIENT RELEVANT IMPLANT DATA REVIEWED: Yes PATIENT PRESENTS WITH AN IMPLANTABLE OR ATTACHED SECOND OFFICER: No RADIOLOGY DEPARTMENT: General X-ray: Exam(s) Completed: Chest X-Ray PERIPHERAL IV DATA: Not applicable SIGNED BY: KOURTNEY Lozada) July 07, 2024 4:48 PM [facility] 07-07-2024 Note Addended by: MELISSA LAYNE on: 07/07/2024 04:17 PM Modules accepted: Orders [facility] 07-07-2024 Miscellaneous Notes Addended by: MELISSA LAYNE on: 07/07/2024 04:17 PM Modules accepted: Orders Addended by: MELISSA LAYNE on: 07/07/2024 03:59 PM Modules accepted: Orders Addended by: MELISSA LAYNE on: 07/07/2024 03:57 PM Modules accepted: Orders documented in this encounter [facility] 07-07-2024 Note Addended by: MELISSA LAYNE on: 07/07/2024 03:59 PM Modules accepted: Orders [facility] 07-07-2024 Note Addended by: MELISSA LAYNE on: 07/07/2024 03:57 PM Modules accepted: Orders [facility] 07-07-2024 Instructions Melissa Layne APRN.CNP - 07/07/2024 3:47 PM EDT 1) Should be on darbepoetin 60 mcg (0.3ml) injection weekly 2) Eat yogurt with live culture daily or probiotic 3) Chest Xray today 4) Follow up in 3 months 5) needs appt. With Dr. Dockery documented in this encounter [facility] 07-07-2024 Note HNO ID: [id number] Author: MELISSA LAYNE APRN.HARDBOARD PANEL PRINTER Service: ? Author Type: Clinical Nurse Specialist Type: Progress Notes Filed: 07/07/2024 15:56 Note Text: This is a 54 year old male who presents today with: No chief complaint on file. HISTORY OF PRESENT ILLNESS: Marian Koch is a 54 year old male. No chief complaint on file. Was at work in May., headed to [employer]. Very hot day. A/C on. Started getting chilled. By the time he got to [place] to get part. Had to put heater on. Dropped the part off and went home. Fever and rigors. Tylenol didn't help, tempt went up. Went to Er. Had labs and CT scan. The next day he had to be vented. Dx with urosepsis. Hypotensive. Suffered Acute kidney injury. Sent to since he had renal transplant there. They did heart cath- couldn't reach blockage. Then had a second heart cath, found blockage in right side of heart. Severely damaged kidney transplant. Swelled up. Discharged. Went to [facility]. Abdominal fluids given. Intraosseous in leg fluid and lidocaine. Life-flight to . Back in ICU. In there a couple days. Went to rehab. Creatinine is now 1.4 (has been down to 1.1) On Meropenem and getting weekly labs Has home care through [facility] and they draw labs PAST MEDICAL HISTORY: PAST MEDICAL HISTORY Diagnosis [...] not accurate. 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 On Sensipar in remote past. Kidney dialysis 1988, and 2000 Neurogenic bladder VIC (obstructive sleep apnea) 08/04/2011 declines CPAP Pulmonary embolism ([facility]) 10-12 years ago Pulmonary nodules Foreign body reaction in pulmonary vasculature, ? cause. Extensive evaluation ruled out vasculitis, fungal inffection, pneumoconiosis. May have been from gortex graft .Resulted in multiple pulmonary nodules. Radiculopathy, lumbar region 11/28/2016 Renal failure 02/20/2010 Renal failure, chronic, stage 3 (moderate) ([facility]) folllowing renal transplant Renal stones Steroid long-term use Transplant kidney 1993 and 2009 Failed in 2000(right in ', removed in ; left ') PAST SURGICAL HISTORY Procedure Laterality Date CABG (4) VEIN GRAFTS AND ARTERIAL GRAFT(S) 2004 COLONOSCOPY FLX DX W/COLLJ SPEC WHEN PFRMD 06/14/[address] Dodge PERICARDIAL WINDOW, DRAINAGE 1991 RENAL ALLOTRANSPLANTATION W/ GRAFT W/O RECIPIENT NEPHRECTOMY 1993, repeat 2019. ALLERGIES Bee Sting and Darvocet-N 100 [Propoxyphene N-Acetaminophen] MEDICATIONS Current Outpatient Medications Medication Sig doxazosin (CARDURA) 8 mg tablet Take 8 mg by mouth daily at bedtime. metoprolol tartrate, short acting, (LOPRESSOR) 25 mg tablet Take 1 tablet by mouth every [address] (PROTONIX) 40 mg tablet Take 1 tablet by mouth every afternoon. traMADol (ULTRAM) 50 mg tablet Take 50 mg by mouth every 6 hours as needed for pain. ELIQUIS 5 mg tab(s) Take 5 mg by mouth two times a day. clopidogrel (PLAVIX) 75 mg tablet Take by mouth once daily. meropenem 2 gram solr Inject 2,000 mg intravenously once daily. Cholecalciferol, Vitamin D3, 50 mcg (2,000 unit) cap Take 100 mcg by mouth. albuterol HFA (PROVENTIL HFA, VENTOLIN HFA) 90 mcg/actuation inhaler Inhale 2 Puffs as instructed every 6 hours as needed. tacrolimus ER (ASTAGRAF XL) 1 mg capsule Take 1 capsule by mouth every 24 hours. 0.5mg daily (Patient taking differently: Take 1.5 mg by mouth every 24 hours.) gabapentin (NEURONTIN) 300 mg capsule Take 1 capsule by mouth three times a day for 90 days. (Patient taking differently: Take 300 mg by mouth two times a day.) atorvastatin (LIPITOR) 80 mg tablet Take 1 tablet by mouth daily at bedtime. predniSONE (DELTASONE) 5 mg tablet Take 1 tab (more content not included)... [facility] 07-07-2024 History of Present illness Narrative This is a 54 year old male who presents today with: No chief complaint on file. HISTORY OF PRESENT ILLNESS: Marian Koch is a 54 year old male. No chief complaint on file. Was at work in , headed to [employer]. Very hot day. A/C on. Started getting chilled. By the time he got to [place] to get part. Had to put heater on. Dropped the part off and went home. Fever and rigors. Tylenol didn't help, tempt went up. Went to Er. Had labs and CT scan. The next day he had to be vented. Dx with urosepsis. Hypotensive. Suffered Acute kidney injury. Sent to since he had renal transplant there. They did heart cath- couldn't reach blockage. Then had a second heart cath, found blockage in right side of heart. Severely damaged kidney transplant. Swelled up. Discharged. Went to [facility]. Abdominal fluids given. Intraosseous in leg fluid and lidocaine. Life-flight to . Back in ICU. In there a couple days. Went to rehab. Creatinine is now 1.4 (has been down to 1.1) On Meropenem and getting weekly labs Has home care through [facility] and they draw labs PAST MEDICAL HISTORY: PAST MEDICAL HISTORY Diagnosis [...] both lower extremities (HCC) 08/22/2017 02/05/[address] [place] [address] Jauregui: no stenosis left fem-pop bypass. Unable to get CHEL due to non-compressible vesels11/12/[address] Zavala [facility]: RIGHT: resting CHEL > 1.81, non-compressible arteries; TBI 0.40 = PAD; Right ankle: Moderate disease at rest. Right iliofemoral disease. Severe disease noted, post exercise, by tracings. LEFT SIDE: resting CHEL 1.81, non-compressible vessels, CHEL not accurate. 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 On Sensipar in remote past. Kidney dialysis 1988, and 2000 Neurogenic bladder VIC (obstructive sleep apnea) 08/04/2011 declines CPAP Pulmonary embolism ([facility]) 10-12 years ago Pulmonary nodules Foreign body reaction in pulmonary vasculature, ? cause. Extensive evaluation ruled out vasculitis, fungal inffection, pneumoconiosis. May have been from gortex graft .Resulted in multiple pulmonary nodules. Radiculopathy, lumbar region 11/28/2016 Renal failure 02/20/2010 Renal failure, chronic, stage 3 (moderate) ([facility]) folllowing renal transplant Renal stones Steroid long-term use Transplant kidney 1993 and 2009 Failed in 2000(right in ', removed in '; left '10) PAST SURGICAL HISTORY Procedure Laterality Date CABG (4) VEIN GRAFTS & ARTERIAL GRAFT(S) 2004 COLONOSCOPY FLX DX W/COLLJ SPEC WHEN PFRMD 06/14/[address] Dodge PERICARDIAL WINDOW, DRAINAGE 1991 RENAL ALLOTRANSPLANTATION W/ GRAFT W/O RECIPIENT NEPHRECTOMY 1993, repeat 2019. ALLERGIES Bee Sting and Darvocet-N 100 [Propoxyphene N-Acetaminophen] MEDICATIONS Current Outpatient Medications Medication Sig doxazosin (CARDURA) 8 mg tablet Take 8 mg by mouth daily at bedtime. metoprolol tartrate, short acting, (LOPRESSOR) 25 mg tablet Take 1 tablet by mouth every [address] (PROTONIX) 40 mg tablet Take 1 tablet by mouth every afternoon. traMADol (ULTRAM) 50 mg tablet Take 50 mg by mouth every 6 hours as needed for pain. ELIQUIS 5 mg tab(s) Take 5 mg by mouth two times a day. clopidogrel (PLAVIX) 75 mg tablet Take by mouth once daily. meropenem 2 gram solr Inject 2,000 mg intravenously once daily. Cholecalciferol, Vitamin D3, 50 mcg (2,000 unit) cap Take 100 mcg by mouth. albuterol HFA (PROVENTIL HFA, VENTOLIN HFA) 90 mcg/actuation inhaler Inhale 2 Puffs as instructed every 6 hours as needed. tacrolimus ER (ASTAGRAF XL) 1 mg capsule Take 1 capsule by mouth every 24 hours. 0.5mg daily (Patient taking differently: Take 1.5 mg by mouth every 24 hours.) gabapentin (NEURONTIN) 300 mg capsule Take 1 capsule by mouth three times a day for 90 days. (Patient taking differently: Take 300 mg by mouth two times a day.) atorvastatin (LIPITOR) 80 mg tablet Take 1 tablet by mouth daily at bedtime. predniSONE (DELTASONE) 5 mg tablet Take 1 tablet by mouth once daily. ferrous sulfate 325 mg (65 mg iron) EC tablet Take 1 tablet by mouth. furosemide (LASIX) 20 mg tablet Take 20 mg by mouth every 48 hours. omeprazole (PRILOSEC) 40 mg capsule Take 1 capsule by mouth once daily. sulfamethoxazole-trimethoprim (BACTRIM) 400-80 mg per tablet Take 1 tablet by mouth every afternoon. alendronate (FOSAMAX) 70 mg tablet Take 1 tablet by mouth one time a week. Take with a full glass of water, on an empty stomach; do NOT lie down for 30minutes. CARDURA XL 8 mg 24 hr tablet TAKE 1 TABLET BY MOUTH EVERY DAY WITH BREAKFAST amLODIPine (NORVASC) 5 mg tablet Take 10 mg by mouth once daily. carvedilol (COREG) 25 mg tablet Take 1 tablet by mouth twice daily with meals. acetaminophen (TYLENOL) 500 mg tablet Take 500 mg by mouth every 8 hours as needed. mycophenolate mofetil (CELLCEPT) 250 mg capsule Take 500 mg by mouth twice daily. (Patient not taking: Reported on 07/07/2024) magnesium oxide 400 mg cap Take 1 capsule by mouth twice daily. ASPIRIN 81 MG TAB Take one(1) tablet daily. No current facility-administered medications for this visit. FAMILY HISTORY Problem Relation Age of Onset Arthritis Father Cancer Father Lung, 1990. Heart Father Heart Mother 2012. Social History Tobacco Use Smoking status: Former Current packs/day: 0.00 Average packs/day: 1.3 packs/day for 15.0 years (18.8 ttl pk-yrs) Types: Cigarettes Start date: 09/06/1996 Quit date: 09/06/2011 Years since quittin.8 Smokeless tobacco: Current Types: Chew Vaping Use Vaping status: Never Used Substance Use Topics Alcohol use: No Drug use: No REVIEW OF SYSTEMS Feels tired No fever or chills No headaches Some nausea and vomited last night Some diarrhea Not sleeping well Eating good and has appetite EXAM: BP 154/82 Pulse 68 Resp 18 Wt 60.7 kg (133 lb 13.1 oz) SpO2 98% BMI 22.27 kg/m PHYSICAL EXAM: Physical Exam Vitals reviewed. Constitutional: General: He is not in acute distress. Appearance: Normal appearance. He is not ill-appearing, toxic-appearing or diaphoretic. Cardiovascular: Rate and Rhythm: Normal rate and regular rhythm. Pulses: Normal pulses. Heart sounds: Murmur heard. No friction rub. No gallop. Comments: Loud BAILEY @ sternal border radiating up to left side of neck Pulmonary: Effort: Pulmonary effort is normal. Breath sounds: Normal breath sounds. Abdominal: General: Bowel sounds are normal. Palpations: Abdomen is soft. Tenderness: There is no abdominal tenderness. There is no guarding. Hernia: No hernia is present. Musculoskeletal: General: Normal range of motion. Cervical back: Normal range of motion. Skin: General: Skin is warm and dry. Neurological: General: No focal deficit present. Mental Status: He is alert and oriented to person, place, and time. Psychiatric: Mood and Affect: Mood normal. Behavior: Behavior normal. LABS: Labs through [facility] ASSESSMENT/PLAN: 1. Right-sided thoracic back pain, unspecified chronicity - ICD9: 724.1, ICD10: M54.6 (primary diagnosis) Check Xray- history of pneumonia - XR CHEST 2V FRONTAL/LAT 2. Pneumonia of right lower lobe due to infectious organism - ICD9: 486, ICD10: J18.9 Check chest xray 3. 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) - ICD9: 414.01, 413.9, ICD10: I25.118 Occluded right 4. Mixed hyperlipidemia - ICD9: 272.2, ICD10: E78.2 - Control undetermined, due for labs - Counseled on healthy diet and regular exercise 5. Radiculopathy, lumbar region - ICD9: 724.4, ICD10: M54.16 stable - Stable 6. VHD (valvular heart disease) - ICD9: 424.90, ICD10: I38 Ongoing - Get appt. With Dr. Dockery 7. H/O kidney transplant - ICD9: V42.0, ICD10: Z94.0 Improving renal Fx Discussed treatment plan and patient voices understanding. Patient's questions answered appropriately. Medications and potential side effects were discussed and patient voices understanding. Return to the office as scheduled or as needed for worsening/no improvement. Melissa Layne APRN.HERON documented in this encounter [facility] 07-07-2024 Telephone encounter Note Charu RODRIGUEZ calling from [facility] to report plan of care for patient and SN will visit patient one time a week for six weeks. SN will work with patient on PICC Care, Labs, and medication management/education. No call back needed unless provider has questions at [phone]. Courtney Klein RN [facility] 07-07-2024 Telephone encounter Note Detailed message left on secure VM for Stephany with Home Care. Gave ok for extended OT. Advised her to call back with any questions or concerns. Candie Dinh MA [facility] 07-07-2024 Miscellaneous Notes Detailed message left on secure VM for Stephany with Home Care. Gave ok for extended OT. Advised her to call back with any questions or concerns. Candie Dinh MA Ok to do Stephany from [facility] calling requesting new verbal order for OT, to extend to end of this week. Unable to schedule with patient due to his other appts. Please advise documented in this encounter [facility] 07-07-2024 Telephone encounter Note Ok to do [facility] Work Phone: 07-07-2024 Telephone encounter Note Stephany from [facility] calling requesting new verbal order for OT, to extend to end of this week. Unable to schedule with patient due to his other appts. Please advise [facility] 07-06-2024 Telephone encounter Note Johnny PT calling from [facility] to report plan of care for patient and PT will visit patient one time a week for first week and one time a week for one week. Johnny reports that patient is getting around fairly well and didn't identify any PT needs. Will check back with patient one more time next week to make sure nothing changes. No call back needed unless provider has questions [phone]. Courtney Klein RN [facility] 07-03-2024 Nurse Progress note EAT:6 ORAL HY TOILETIN BATHE:[address] DR FOOTWEAR:6 ROLL L/R:6 SIT TO LYIN LYING TO SIT:6 SIT TO STAND:6 BED TO CHAIR:6 TOILET TRANS:6 CAR TRANS:6 WALK 10FT:6 WALK 50FT:6 WALK 150FT:6 WALK 10FT UNEVEN:6 1 STEP:6 4 STEPS: 6 12 STEPS:6 OBJECT FROM FLOOR:6 WHEEL 50FT:9 WHEEL 150FT:9 GOAL SET FOR UPPER BDY DRG AT 6 AND MET AT 6. Digitally Signed by JENNIFER Castillo on 07/03/2024 01:14 PM [facility] 07-03-2024 Nurse Progress note Nursing GG Entered On: 07/03/2024 10:30 EDT Performed On: 07/03/2024 10:29 EDT by Yolande Heller RN Nursing GG's OT GG Grid Eating : Independent Oral Hygiene : Independent Toilet Hygiene : Independent Toilet Transfer : Independent Upper Body Dressing : Independent Lower Body Dressing : Independent Putting on/taking off footwear : Independent Roll left and right : Independent Sit to lying : Independent Lying to sitting on side of bed : Independent Sit to stand : Independent Chair/[id number] transfer : Independent Walk 10 ft : Independent Yolande Heller RN - 07/03/2024 10:29 EDT Digitally Signed by Yolande Heller RN on 07/03/2024 10:29 AM [facility] 07-03-2024 Note Discharge Instructions Thank you for allowing [facility] to assist you with your healthcare needs. The following is important discharge information regarding your hospital visit. Your Care Team TATE, M INES PA Your Diagnosis Afib AMS (altered mental status) CAD (coronary artery disease) of bypass graft Debility Factor V Leiden HTN (hypertension) PVD (peripheral vascular disease) Septic shock What to do next Follow Up Appointments Follow Up with Home Meds Additional Information: Home medications were brought in, please return at discharge. Follow Up with Diana TATE When:07/07/2024 03:00 PM EDT Where:[facility] [address] [place] [address]- Additional Information: Take Discharge Instructions to Dr Jessica - Follow Up with VERÓNICA TATUM MD When:07/17/2024 10:40 AM EDT Additional Information: Video call with Infectious Disease - Follow Up with [facility] When:07/22/2024 08:00 AM EDT Where:[address], [address] [place], [place] [phone] Additional Information: Kidney - Follow Up with JANEL CAMARENA When:08/03/2024 03:00 PM EDT Where:[address] [place] [address]- Additional Information: Urology - The Following Activity and Diet Have Been Ordered for You Discharge Activity - Ordered -- As instructed by therapy, Shower with assistance; Apply anti-embolism stockings on AM/off PM daily, this will help promote circulation; Incentive spirometer 10/hr while awake, be sure to take deeps breaths -, 07/03/24 10:08:00 EDT Discharge Activity - Ordered -- Activity As Tolerated, 07/03/24 10:08:00 EDT Discharge Driving Restrictions - Ordered -- No driving permitted, must be cleared by physician -, 07/03/24 10:08:00 EDT Discharge Diet - Ordered -- Type of Diet: Regular, 07/03/24 10:08:00 EDT The Following Equipment Has Been Ordered for You Discharge Home Equipment Discharge Communication Order - Ordered -- MIDLINE CARE - Report any swelling, irritation, redness, tenderness, unusual odor, color, or drainage from your site to your physician immediately. Do not pull or tug at device or insertion area., 07/03/24 10:08:22 EDT The Following Treatments Have Been Ordered for You Discharge Labs Discharge Outpatient Labwork - Ordered -- CMP, CBC, CRP, ESR, IV antibiotics, Results Notify to: VERÓNICA TATUM MD (Infectious Disease), Weekly on Mondays until IV Antibiotics are completed;, 07/03/24 10:08:00 EDT Discharge Radiology No qualifying data available. Other Therapies No qualifying data available. Post Acute Orders Discharge Skin Breakdown Prevention - Ordered -- When to Check Skin: Every two hours, Elevate your heels while in bed, turn and reposition yourself while in bed, redistribute your weight while sitting up; Report any skin changes you notice - Discharge Weight Order - Ordered -- When to Weigh: Saturday, Weekly weight to monitor for weight loss - Someone Will Contact You Regarding These Home Health Referrals Consult Home Health - OT - Ordered -- 07/03/24 10:08:00 EDT, Home Therapy Order: OT Eval & Treat, Home Therapy Instruction: Full weight bearing, Reason: ADL assistance Consult Home Health - PT - Ordered -- 07/03/24 10:08:00 EDT, Home Therapy Order: PT Eval & Treat, Reason: General Debility, Home Therapy Instruction: Full weight bearing Consult Home Health - RN - Ordered -- 07/03/24 10:08:00 EDT, Reason: Home IV infusions, Provided by [facility] [phone] - Allergies Bee Stings propoxyphene Medications Please ask your primary doctor or pharmacist before taking any other medication not listed, including over the counter drugs, herbal medications, vitamins and or supplements as they may interact with your home medications. What How Much When Why Instructions Last Dose New acetaminophen (Tylenol 325 mg oral capsule) 650 Milligram by mouth Every 4 hours as needed for Muscle pain New emollients, topical (emollients (Eucerin Cream) Cream) 1 application Topical Two (2) times a day Changed atorvastatin (atorvastatin 80 mg oral tablet) 1 tab(s) by mouth Every day Pickup at [facility]/pharmacy #[id number] Changed doxazosin (doxazosin 8 mg oral tablet) 1 tab(s) by mouth Daily at bedtime Pickup at [facility]/pharmacy #[id number] Changed gabapentin (gabapentin 300 mg oral capsule) 1 cap by mouth Two (2) times a day PVD (peripheral vascular disease) Pickup at [facility]/pharmacy #[id number] Changed metoprolol (Metoprolol Tartrate 25 mg oral tablet) 1 tab(s) by mouth Two (2) times a day Pickup at [facility]/pharmacy #3321 Changed pantoprazole (Protonix 40 mg oral enteric coated tablet) 1 tab(s) by mouth Once a day Pickup at [facility]/pharmacy #3321 Changed traMADol (traMADol 50 mg oral tablet) 1 tab(s) by mouth Every 6 hours as needed for for pain PVD (peripheral vascular disease) Duration: 7 Days Pickup at [facility]/pharmacy #3321 Unchanged albuterol (albuterol MDI (90 mcg/ inh) CFC free inhalation aerosol) 2 puff(s) by inhalation Every 6 hours as needed for as needed for wheezing Unchanged apixaban (Eliquis 5 mg oral tablet) 1 tab(s) by mouth Two (2) times a day Pickup at [facility]/pharmacy #3321 Unchanged capsaicin topical (capsaicin 0.025% topical cream) 1 application Topical Two (2) times a day Unchanged cholecalciferol (cholecalciferol 50 mcg (2000 intl units) oral tablet) 2 tab(s) by mouth Every day Pickup at [facility]/pharmacy #3321 Unchanged clopidogrel (clopidogrel 75 mg oral tablet) 1 tab(s) by mouth Once a day [facility] Unchanged darbepoetin sridevi (darbepoetin sridevi 60 mcg/ 0.3 mL injectable solution) 0.3 Milliliter Subcutaneous Every week Unchanged lidocaine topical (lidocaine 4% patch) 1 patch(es) Topical Once a day Unchanged melatonin (Melatonin 5 mg oral tablet) 1 tab(s) by mouth Daily at bedtime Unchanged meropenem (meropenem 2 g intravenous injection) 2,000 Milligram Intravenous Two (2) times a day Rate: 33.33mL/hr Infuse over 3 hours STOP DATE: 07/15/2024 Duration: 19 Days Unchanged predniSONE (predniSONE 5 mg oral tablet) 1 tab(s) by mouth Once a day Unchanged tacrolimus (tacrolimus 0.75 mg oral tablet, extended release) 2 tab(s) by mouth Once a day (in the morning) Pharmacy Information [facility]/pharmacy #[id number]: [address], [place] [phone] What How Much When Comments Stop Taking albuterol-ipratropium (albuterol-ipratropium 2.5 mg-0.5 mg/ 3 mL inhalation solution) 3 Milliliter by inhalation Four (4) times a day as needed for as needed for shortness of breath or wheezing Stop Taking iron sucrose (iron sucrose 20 mg/ mL intravenous solution) 10 Milliliter IV Push Every day Stop Taking isosorbide mononitrate (Imdur use isosorbide mononitrate ) 60 Milligram by mouth Once a day (in the morning) Stop Taking nystatin topical (nystatin 100,000 units/ g topical powder) 1 application Topical Two (2) times a day Please take this list to your next doctor s visit. Bring all medications you take, including over the counter medications, herbals and other supplements with you to your doctor s visit. Patients and families are reminded to discard old lists and to update any records with all medication providers or retail pharmacies. Education Materials PICC Home Care Guide A peripherally inserted central catheter (PICC) is a form of IV access that allows medicines and IV fluids to be quickly distributed throughout the body. The PICC is a long, thin, flexible tube (catheter) that is inserted into a vein in the upper arm. The catheter ends in a large vein in the chest (superior vena cava, or SVC). After the PICC is inserted, a chest X-ray may be done to make sure that it is in the correct place. A PICC may be placed for different reasons, such as: To give medicines and liquid nutrition. To give IV fluids and blood products. If there is trouble placing a peripheral intravenous (PIV) catheter. If taken care of properly, a PICC can remain in place for several months. Having a PICC can also allow a person to go home from the hospital sooner. Medicine and PICC care can be managed at home by a family member, caregiver, or home health care team. What are the risks? Generally, having a PICC is safe. However, problems may occur, including: A blood clot (thrombus) forming in or at the tip of the PICC. A blood clot forming in a vein (deep vein thrombosis) or traveling to the lung (pulmonary embolism). Inflammation of the vein (phlebitis) in which the PICC is placed. Infection. Central line associated blood stream infection (CLABSI) is a serious infection that often requires hospitalization. PICC movement (malposition). The PICC tip may move from its original position due to excessive physical activity, forceful coughing, sneezing, or vomiting. A break or cut in the PICC. It is important not to use scissors near the PICC. Nerve or tendon irritation or injury during PICC insertion. How to take care of your PICC Preventing problems You and any caregivers should wash your hands often with soap. Wash hands: ? Before touching the PICC line or the infusion device. ? Before changing a bandage (dressing). Flush the PICC as told by your health care provider. Let your health care provider know right away if the PICC is hard to flush or does not flush. Do not use force to flush the PICC. Do not use a syringe that is less than 10 mL to flush the PICC. Avoid blood pressure checks on the arm in which the PICC is placed. Never pull or tug on the PICC. Do not take the PICC out yourself. Only a trained clinical professional should remove the PICC. Use clean and sterile supplies only. Keep the supplies in a dry place. Do not reuse needles, syringes, or any other supplies. Doing that can lead to infection. Keep pets and children away from your PICC line. Check the PICC insertion site every day for signs of infection. Check for: ? Leakage. ? Redness, swelling, or pain. ? Fluid or blood. ? Warmth. ? Pus or a bad smell. PICC dressing care Keep your PICC bandage (dressing) clean and dry to prevent infection. Do not take baths, swim, or use a hot tub until your health care provider approves. Ask your health care provider if you can take showers. You may only be allowed to take sponge baths for bathing. When you are allowed to shower: ? Ask your health care provider to teach you how to wrap the PICC line. ? Cover the PICC line with clear plastic wrap and tape to keep it dry while showering. Follow instructions from your health care provider about how to take care of your insertion site and dressing. Make sure you: ? Wash your hands with soap and water before you change your bandage (dressing). If soap and water are not available, use hand general assistant. ? Change your dressing as told by your health care provider. ? Leave stitches (sutures), skin glue, or adhesive strips in place. These skin closures may need to stay in place for 2 weeks or longer. If adhesive strip edges start to loosen and curl up, you may trim the loose edges. Do not remove adhesive strips completely unless your health care provider tells you to do that. Change your PICC dressing if it becomes loose or wet. General instructions Carry your PICC identification card or wear a medical alert bracelet at all times. Keep the tube clamped at all times, unless it is being used. Carry a smooth-edge clamp with you at all times to place on the tube if it breaks. Do not use scissors or sharp objects near the tube. You may bend your arm and move it freely. If your PICC is near or at the bend of your elbow, avoid activity with repeated motion at the elbow. Avoid lifting heavy objects as told by your health care provider. Keep all follow-up visits as told by your health care provider. This is important. Disposal of supplies Throw away any syringes in a disposal container that is meant for sharp items (sharps container). You can buy a sharps container from a pharmacy, or you can make one by using an empty hard plastic bottle with a cover. Place any used dressings or infusion bags into a plastic bag. Throw that bag in the trash. Contact a health care provider if: You have pain in your arm, ear, face, or teeth. You have a fever or chills. You have redness, swelling, or pain around the insertion site. You have fluid or blood coming from the insertion site. Your insertion site feels warm to the touch. You have pus or a bad smell coming from the insertion site. Your skin feels hard and raised around the insertion site. Get help right away if: Your PICC is accidentally pulled all the way out. If this happens, cover the insertion site with a bandage or gauze dressing. Do not throw the PICC away. Your health care provider will need to check it. Your PICC was tugged or pulled and has partially come out. Do not push the PICC back in. You cannot flush the PICC, it is hard to flush, or the PICC leaks around the insertion site when it is flushed. You hear a flushing sound when the PICC is flushed. You feel your heart racing or skipping beats. There is a hole or tear in the PICC. You have swelling in the arm in which the PICC was inserted. You have a red streak going up your arm from where the PICC was inserted. Summary A peripherally inserted central catheter (PICC) is a long, thin, flexible tube (catheter) that is inserted into a vein in the upper arm. The PICC is inserted using a sterile technique by a specially trained nurse or physician. Only a trained clinical professional should remove it. Keep your PICC identification card with you at all times. Avoid blood pressure checks on the arm in which the PICC is placed. If cared for properly, a PICC can remain in place for several months. Having a PICC can also allow a person to go home from the hospital sooner. This information is not intended to replace advice given to you by your health care provider. Make sure you discuss any questions you have with your health care provider. Document Released: 03/29/2004 Document Revised: 09/05/2018 Document Reviewed: 10/26/2017 [employer] Patient Education 2020 [employer]. Peripheral Vascular Disease Peripheral vascular disease (PVD) is a disease of the blood vessels that are not part of your heart and brain. A simple term for PVD is poor circulation. In most cases, PVD narrows the blood vessels that carry blood from your heart to the rest of your body. This can reduce the supply of blood to your arms, legs, and internal organs, like your stomach or kidneys. However, PVD most often affects a person s lower legs and feet. Without treatment, PVD tends to get worse. PVD can also lead to acute ischemic limb. This is when an arm or leg suddenly cannot get enough blood. This is a medical emergency. Follow these instructions at home: Lifestyle Do not use any products that contain nicotine or tobacco, such as cigarettes and e-cigarettes. If you need help quitting, ask your doctor. Lose weight if you are overweight. Or, stay at a healthy weight as told by your doctor. Eat a diet that is low in fat and cholesterol. If you need help, ask your doctor. Exercise regularly. Ask your doctor for activities that are right for you. General instructions Take hhsh-ynw-rlpsctx and prescription medicines only as told by your doctor. Take good care of your feet: ? Wear comfortable shoes that fit well. ? Check your feet often for any cuts or sores. Keep all follow-up visits as told by your doctor This is important. Contact a doctor if: You have cramps in your legs when you walk. You have leg pain when you are at rest. You have coldness in a leg or foot. Your skin changes. You are unable to get or have an erection (erectile dysfunction). You have cuts or sores on your feet that do not heal. Get help right away if: Your arm or leg turns cold, numb, and blue. Your arms or legs become red, warm, swollen, painful, or numb. You have chest pain. You have trouble breathing. You suddenly have weakness in your face, arm, or leg. You become very confused or you cannot speak. You suddenly have a very bad headache. You suddenly cannot see. Summary Peripheral vascular disease (PVD) is a disease of the blood vessels. A simple term for PVD is poor circulation. Without treatment, PVD tends to get worse. Treatment may include exercise, low fat and low cholesterol diet, and quitting smoking. This information is not intended to replace advice given to you by your health care provider. Make sure you discuss any questions you have with your health care provider. Document Released: 12/18/2010 Document Revised: 09/05/2018 Document Reviewed: 10/31/2017 [employer] Patient Education 2020 [employer] Sepsis, Diagnosis, Adult Sepsis is a serious bodily reaction to an infection. The infection that triggers sepsis may be from a bacteria, virus, or fungus. Sepsis can result from an infection in any part of your body. Infections that commonly lead to sepsis include skin, lung, and urinary tract infections. Sepsis is a medical emergency that must be treated right away in a hospital. In severe cases, it can lead to septic shock. Septic shock can weaken your heart and cause your blood pressure to drop. This can cause your central nervous system and your body's organs to stop working. What are the causes? This condition is caused by a severe reaction to infections from bacteria, viruses, or fungus. The germs that most often lead to sepsis include: Escherichia coli (E. coli) bacteria. Staphylococcus aureus (staph) bacteria. Some types of Streptococcus bacteria. The most common infections affect these organs: The lung (pneumonia). The kidneys or bladder (urinary tract infection). The skin (cellulitis). The bowel, gallbladder, or pancreas. What increases the risk? You are more likely to develop this condition if: Your body's disease-fighting system (immune system) is weakened. You are age 65 or older. You are male. You had surgery or you have been hospitalized. You have these devices inserted into your body: ? A small, thin tube (catheter). ? IV line. ? Breathing tube. ? Drainage tube. You are not getting enough nutrients from food (malnourished). You have a long-term (chronic) disease, such as cancer, lung disease, kidney disease, or diabetes. You are . What are the signs or symptoms? Symptoms of this condition may include: Fever. Chills or feeling very cold. Confusion or anxiety. Fatigue. Muscle aches. Shortness of breath. Nausea and vomiting. Urinating much less than usual. Fast heart rate (tachycardia). Rapid breathing (hyperventilation). Changes in skin color. Your skin may look blotchy, pale, or blue. Cool, clammy, or sweaty skin. Skin rash. Other symptoms depend on the source of your infection. How is this diagnosed? This condition is diagnosed based on: Your symptoms. Your medical history. A physical exam. Other tests may also be done to find out the cause of the infection and how severe the sepsis is. These tests may include: Blood tests. Urine tests. Swabs from other areas of your body that may have an infection. These samples may be tested (cultured) to find out what type of bacteria is causing the infection. Chest X-ray to check for pneumonia. Other imaging tests, such as a CT scan, may also be done. Lumbar puncture. This removes a small amount of the fluid that surrounds your brain and spinal cord. The fluid is then examined for infection. How is this treated? This condition must be treated in a hospital. Based on the cause of your infection, you may be given an antibiotic, antiviral, or antifungal medicine. You may also receive: Fluids through an IV. Oxygen and breathing assistance. Medicines to increase your blood pressure. Kidney dialysis. This process cleans your blood if your kidneys have failed. Surgery to remove infected tissue. Blood transfusion if needed. Medicine to prevent blood clots. Nutrients to correct imbalances in basic body function (metabolism). You may: ? Receive important salts and minerals (electrolytes) through an IV. ? Have your blood sugar level adjusted. Follow these instructions at home: Medicines Take agpe-tpw-wuaplki and prescription medicines only as told by your health care provider. If you were prescribed an antibiotic, antiviral, or antifungal medicine, take it as told by your health care provider. Do not stop taking the medicine even if you start to feel better. General instructions If you have a catheter or other indwelling device, ask to have it removed as soon as possible. Keep all follow-up visits as told by your health care provider. This is important. Contact a health care provider if: You do not feel like you are getting better or regaining strength. You are having trouble coping with your recovery. You frequently feel tired. You feel worse or do not seem to get better after surgery. You think you may have an infection after surgery. Get help right away if: You have any symptoms of sepsis. You have difficulty breathing. You have a rapid or skipping heartbeat. You become confused or disoriented. You have a high fever. Your skin becomes blotchy, pale, or blue. You have an infection that is getting worse or not getting better. These symptoms may represent a serious problem that is an emergency. Do not wait to see if the symptoms will go away. Get medical help right away. Call your local emergency services (911 in the [place] Do not drive yourself to the hospital. Summary Sepsis is a medical emergency that requires immediate treatment in a hospital. This condition is caused by a severe reaction to infections from bacteria, viruses, or fungus. Based on the cause of your infection, you may be given an antibiotic, antiviral, or antifungal medicine. Treatment may also include IV fluids, breathing assistance, and kidney dialysis. This information is not intended to replace advice given to you by your health care provider. Make sure you discuss any questions you have with your health care provider. Document Released: 06/21/2004 Document Revised: 05/01/2019 Document Reviewed: 05/01/2019 [employer] Patient Education 2020 [employer] Additional Information VACCINATE! IT SAVES LIVES! Members of the community who have not yet received the COVID-19 vaccine and would like to receive it can visit one of [facility] vaccine clinics. There are many vaccine clinic locations within the [facility]. For locations and available times, please visit https://gettheshot.coronavirus.[place].gov/. It is important to note that some COVID mobile vaccine clinics are held outdoors and may be canceled in rainy or stormy conditions. To learn more about pediatric vaccinations (ages 5-11), we invite you to visit the [email or web address] [facility] webpage. [email or web address] To learn more about the COVID-19 vaccine, we invite you to visit the CDC website for a list of frequently asked questions.https://www.cdc.gov/cor onavirus/2019-ncov/vaccines/faq.h tml [facility] Patient Portal Access Instructions: Stay connected with your healthcare team and access your personal medical information anytime with the [facility] Patient Portal. Please follow the directions below to create your [facility] account: 1.Access the email account you provided upon registration to the hospital/physician office.2.Look for an invitation email from [facility].3.Open the email and access the invitation link: Accept Invitation to [employer]4.Fill in the required pierson to create your account. To access your account, visit [email or web address]. Click the blue button labeled Access Patient Portal and then log in with the username and password that you created in the steps above. You will be able to view your test results, lab results, a summary of your visits, upcoming appointments and more. There is also a convenient messaging option where you can send secure messages to your provider. In addition, you will have the ability to download any documents or summaries to your computer and/or send the information securely to a physician. Remember that your healthcare information is confidential, so carefully consider who you will allow to register on the [facility] Patient Portal for access to your information. You can also access the [employer] Patient Portal on the [employer] sunshine. Simply click on Patient Portal and then log into your account. If you would like to receive a full copy of your medical records, please contact the [facility] Medical Records Department by calling [phone], Saturday through Saturday between 8 a.m. and 4:30 p.m. HOW TO SAFELY DISPOSE OF PRESCRIPTION MEDICATIONS Please use one of the following methods to safely dispose of your unused medications. 1.Use a drug disposal kit: the drug disposal pouch allows you to safely discard your old and unused drugs. Ask your nurse to give you one when you are discharged.2.Visit a local take-back location: Many local pharmacies and police departments have programs that collect old and unwanted prescription drugs. Call your local pharmacy or go to http://[employer]/6J7Sy5c to find one close to you.3.Make use of household items: Use cat litter or old coffee grounds to dispose medications if other options are not available. Mix your drugs with these household products, seal them in an airtight container and throw it into the garbage. Call [facility]: [phone] to be sure your drugs can be disposed of in this way. Some medicines may require a different approach.4.Never flush your medications down the toilet. IF YOU HAVE BEEN PRESCRIBED AN OPIOID FOR PAIN If you have been prescribed an opioid (such as hydrocodone, oxycodone or morphine), it is critical to understand the possible side effects and risks of opioid pain medications. Even when taken as directed, opioids can have several side effects including: Tolerance, meaning you might need to take more of a medication for the same pain relief. Nausea, vomiting and/or constipation. Sleepiness, dizziness, dry mouth, confusion, depression or itching. Physical dependence, meaning you have withdrawal symptoms when a medication is stopped, can develop within a few days. KNOW YOUR RESPONSIBILITIES It is important to know exactly how much and how often to take the opioid pain medications you are prescribed. Never take opioids in higher amounts or more often than prescribed. Do not combine opioids with alcohol or other drugs that cause drowsiness, such as benzodiazepines, also known as benzos, including diazepam and alprazolam, muscle relaxants or sleep aids. Never sell or share prescription opioids. This is illegal. Store opioids in a secure place and out of reach of others (including children, family, friends and visitors). The last page of this document has been signed and retained as a CHART COPY. Signatures Patient Education Materials PICC Home Care Guide Peripheral Vascular Disease, Vgto-hi-Actu Sepsis, Diagnosis, Adult Medication Leaflets My discharge plan and instructions have been reviewed and explained to me and I,ZEE, MARIAN understand my current condition and have read and understand these discharge instructions. I have received a written copy of the plan/instructions. If I have questions, I am aware that I should contact my doctor. 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 Continues on the IV meropenem until 07/15. States that he is tolerating this. He does state that when he goes home his is a nurse and will be able to administer this for him. Denies any GI upset with this. Denies any adverse reactions. Denies fever or chills. Was found a right subclavian DVT, Eliquis was initiated. He is tolerating this. No active bleeding noted. He did some hematuria yesterday but he felt this was secondary to having the Machado catheter pulled during a transfer. He states that he has not noticed any further hematuria since that 1 isolated episode. He denies dizziness or lightheadedness. States breathing is comfortable. Does state that he has made significant progress and he is back to his baseline currently. States he is ready to go home. Denies any concerns regarding discharge planning. States that he is tolerating current medication regimen without difficulties. Objective General: Alert and oriented, NAD. Appears comfortable sitting on edge of bed, no acute pain noted. Pleasant, interactive and calm. Good eye contact, flat affect HEENT: No nasal drainage, EOMI, MMM Respiratory: LCTA nonlabored on RA; no cough or conversational dyspnea Cardiovascular: HRR; no tachycardia; no heart murmur Edema/Varicosities of Extremities: No edema BLE Gastrointestinal: Abdomen soft/nondistended/nontender; bowel sounds present x 4 Genitourinary: No CVA tenderness, suprapubic tenderness, or bladder distention. Machado catheter draining clear, light yellow urine without sediment or hematuria. VITALS [id number] (kg) 07/03 05:2636.5--[id number]/25 64.0 07/02 16:5436.5--5418--RA06/26 63.3 07/02 10:00----62----RA 07/02 09:2136.5--[id number] 07/02 01:0036.7--[id number] 24 Hr Tmax: 36.5 at 07/03 05: 36 Hr Tmax: 36.7 at 07/02 01:00 Vital Signs are the last 5 in the past 48 hours. Weights display the last 5 within 7 days. Initial Wt: 06/25 63.3 kg 139 lb Current Wt: 07/01 64.0 kg 141 lb LABS No 36 Hour Lab Data Medications Active Inpt Meds: apixaban (Eliquis) Start: 06/26/24 21:00:00 EDT, Dose = 5 mg, = 1 tab(s), Oral, BID, Indication for Use Persistant atrial fibrillation, 06/26/24 19:02:00 EDT atorvastatin Start: 06/26/24 22:00:00 EDT, Dose = 80 mg, = 1 tab(s), Oral, Daily, 06/26/24 19:02:00 EDT cholecalciferol (cholecalciferol 50 mcg (2000 intl units) oral tablet) Start: 06/27/24 9:00:00 EDT, Dose = 100 mcg, = 2 tab(s), Oral, Daily, 0, 06/26/24 19:02:00 EDT clopidogrel Start: 06/26/24 19:02:00 EDT, Dose = 75 mg, = 1 tab(s), Oral, qDay, 06/26/24 19:02:00 EDT darbepoetin sridevi Start: 06/29/24 9:00:00 EDT, Dose = 60 mcg, = 0.3 mL, Subcutaneous, Saturday, Indication for Use Other (please specify in ORDER COMMENTS), 0 doxazosin (doxazosin 8 mg oral tablet) Start: 06/26/24 21:00:00 EDT, Dose = 8 mg, = 1 tab(s), Oral, qHS, 06/26/24 19:03:00 EDT emollients, topical (emollients (Eucerin Cream) Cream) Start: 06/29/24 10:32:00 EDT, Dose = 1 sunshine, Topical, BID, Apply to: Legs bilaterally, Cream, 06/29/24 9:58:00 EDT gabapentin Start: 06/26/24 21:00:00 EDT, Dose = 300 mg, = 1 cap(s), Oral, BID, 06/26/24 19:03:00 EDT isosorbide mononitrate Start: 06/27/24 7:00:00 EDT, Dose = 30 mg, = 1 tab(s), Oral, qAM, Patient's Own Med, 0 lidocaine (lidocaine Patch REMOVAL) Start: 06/26/24 22:00:00 EDT, Dose = 1 EA, Misc, Miscellaneous, q24h, 0 lidocaine topical (lidocaine 4% patch) Start: 06/27/24 10:00:00 EDT, Dose = 1 patch(es), Film, Transdermal, qDay, Apply to: skin melatonin Start: 06/26/24 21:00:00 EDT, Dose = 5 mg, = 1 tab(s), Oral, qHS, 06/26/24 19:03:00 EDT meropenem (Merrem) Start: 06/27/24 9:00:00 EDT, Dose = 2 gram(s), IV Piggyback, q12h, Stop: 07/15/24 22:00:00 EDT, Rate: 33.33 mL/hr, Infuse over: 3 hour(s), 0 metoprolol (Metoprolol Tartrate 25 mg oral tablet) Start: 06/26/24 19:03:00 EDT, Dose = 25 mg, = 1 tab(s), Oral, BID, Hold if HR (bpm) < 55, 0, 06/26/24 19:03:00 EDT pantoprazole (Protonix) Start: 06/27/24 7:00:00 EDT, Dose = 40 mg, = 1 tab(s), Oral, qDay, 0, 06/26/24 19:03:00 EDT predniSONE Start: 06/26/24 19:03:00 EDT, Dose = 5 mg, = 1 tab(s), Oral, qDay, 0, 06/26/24 19:03:00 EDT tacrolimus (tacrolimus 0.5 mg oral capsule) Start: 06/27/24 9:00:00 EDT, Dose = 1.5 mg, = 3 cap(s), Oral, qAM, 0, 06/26/24 20:47:00 EDT Active PRN Meds: Al hydroxide/Mg hydroxide/simethicone (Maalox) Start: 06/26/24 18:57:00 EDT, Dose = 30 mL, Susp, Oral, q6h, PRN, Indigestion, 06/26/24 18:57:00 EDT acetaminophen (Tylenol) Start: 06/26/24 18:57:00 EDT, Dose = 650 mg, = 2 tab(s), Oral, q4h, PRN, Muscle pain, 06/26/24 18:57:00 EDT albuterol-ipratropium (DuoNeb 0.5 mg - 2.5 mg/3 mL inhalation soln) Start: 06/26/24 20:31:00 EDT, Dose = 3 mL, Soln, Inhalation, QIDRT, PRN, as needed for shortness of breath or wheezing, 0, 06/26/24 20:23:00 EDT docusate (Colace) Start: 06/26/24 18:57:00 EDT, Dose = 100 mg, = 1 cap(s), Oral, BID, PRN, Constipation, 06/26/24 18:57:00 EDT glucagon (GlucaGen) Start: 06/26/24 18:57:00 EDT, Dose = 1 mg, = 1 mL, Intramuscular, AsDirected, PRN, Hypoglycemia, if unresponsive, NO IV ACCESS & blood glucose less than 70mg/dL. If still unresponsive after 2 minutes, REPEAT x1., 06/26/24 18:57:00 EDT glucose (Dextrose 50% IV Push) Start: 06/26/24 18:57:00 EDT, Dose = 12.5 gram(s), = 25 mL, IV Push, AsDirected, PRN, Hypoglycemia, if unresponsive WITH IV ACCESS & blood glucose less than 70mg/dL. If still unresponsive after 2 minutes, REPEAT x1., 06/26/24 18:57:00 EDT glucose Start: 06/26/24 18:57:00 EDT, Dose = 16 gram(s), = 4 tab(s), Chewed, AsDirected, PRN, Hypoglycemia, DIABETIC PATIENT if responsive & blood glucose less than 70mg/dL. If blood glucose less than 70mg/dL after 15 minutes, REPEAT x1., 0, 06/26/24 18:5... glycerin (glycerin adult rectal suppository) Start: 06/26/24 18:57:00 EDT, Dose = 1 supp, Supp, Rectal, Daily, PRN, Constipation, 06/26/24 18:57:00 EDT magnesium hydroxide (Milk of Magnesia) Start: 06/26/24 18:57:00 EDT, Dose = 30 mL, Susp-Oral, Oral, qDay, PRN, Constipation, 06/26/24 18:57:00 EDT polyethylene glycol 3350 (Miralax Powder Packet) Start: 06/26/24 18:57:00 EDT, Dose = 17 gram(s), = 15 mL, Oral, qDay, PRN, Constipation, 06/26/24 18:57:00 EDT traMADol Start: 06/26/24 19:03:00 EDT, Dose = 50 mg, = 1 tab(s), Oral, q12h, PRN, Pain, 0, 06/26/24 19:03:00 EDT One Time Meds: None Active IV Meds: None Problems (17) Acute DVT (deep venous thrombosis) (5928380017) Afib (30515109) AMS (altered mental status) (5432451457) Bacteremia (81590789) CAD (coronary artery disease) of bypass graft (6342963213) Cardiogenic shock (836494452) Debility (86510808) ESRD (end stage renal disease) (9569715025) Factor V Leiden (105832948) HTN (hypertension) (5247328843) Lethargy (692026137) NSTEMI (non-ST elevated myocardial infarction) (63954048) Pseudomonas urinary tract infection (7778263037) PVD (peripheral vascular disease) (3982807304) Scrotal swelling (216688733) Septic shock (883336660) Urinary retention (909771449) ASSESSMENT/PLAN: Septic shock with altered mental status and fevers. He was transferred to [facility] due to septic shock secondary to Pseudomonas bacteremia. This is likely due to a UTI as patient has history of urinary retention and straight caths at home. He is currently on IV meropenem until July 15. Infectious disease is following. Working with PT, OT, and ST services Non-STEMI, echocardiogram was obtained and ejection fraction was 50% at that time. Also revealed mild apical hypokinesis involving basal anterior and anteroseptal her. This is currently being medically managed at this time DVT, DVT in the right subclavian. He has history of DVT as well. He was also found to have factor V Leiden. He is currently on Eliquis 5 mg twice daily. Urinary retention, currently has Machado catheter in place draining clear yellow urine. Appointment with urology 06/29 completed, no new orders. End-stage renal disease, baseline creatinine is poor ranging from 1.8-2.2. He has history of kidney transplant in 1993 and 2009. Hypertension, blood pressures are currently controlled okay on Imdur and metoprolol. Urinary retention, Machado cath currently in place and patient on doxazosin 8 mg at bedtime. He has an upcoming appointment with urology CAD: Patient has history of CABG. He remains on metoprolol, Plavix, and high intensity atorvastatin 80 mg daily. PAD: History of femoral bypass. He remains on Plavix as well. GERD, pantoprazole 40 mg daily. COPD: Patient has as needed DuoNeb nebulizer treatments in place. Lungs remain clear. Respiratory status stable Hyperlipidemia: Patient remains on high intensity atorvastatin 80 mg daily. Atrial fibrillation: Currently treated with metoprolol and Eliquis. Bradycardia holding parameters on metoprolol for heart rate less than 55. Monitoring heart rates closely. Intermittent episodes of hypoxia that increases with exertion. Continues to breathe comfortably on room air EKG obtained yesterday which does not show any acute ischemic changes Chronic anemia and thrombocytopenia stable on CBC Hematuria, resolved Patient appropriate discharge home today discharge home with PT OT home nursing, ambulating up to 250 feet and independent level, 12 stairs and independent level. Medications reviewed and up to date This document was transcribed using dictation software and may contain typographical errors. Vernon Fuentes RN, am scribing for , and in the presence of Dr. Blood. I, Dr. Blood, personally performed the services described in this documentation, as scribed byVernon RN in my presence and it is both accurate and complete. Digitally Signed by PORSHA BLOOD DO on 07/03/2024 02:02 PM Christal Reno 07-03-2024 Note IN ERROR Digitally Signed by Nelson Ayala LPN on 07/03/2024 07:05 AM Christal Reno 07-02-2024 Nurse Progress note Nursing GG Entered On: 07/02/2024 17:59 EDT Performed On: 07/02/2024 17:59 EDT by Saeed Banda RN Nursing GG's OT GG Grid Eating : Independent Oral Hygiene : Independent Toilet Hygiene : Independent Toilet Transfer : Independent Upper Body Dressing : Independent Lower Body Dressing : Independent Putting on/taking off footwear : Independent Roll left and right : Independent Sit to lying : Independent Lying to sitting on side of bed : Independent Sit to stand : Independent Chair/qtv-rl-ghgcp transfer : Independent Walk 10 ft : Independent Saeed Banda RN - 07/02/2024 17:59 EDT Digitally Signed by Saeed Banda RN on 07/02/2024 05:59 PM Christal Reno 07-02-2024 Hospital Discharge instructions Patient Education 07/02/2024 11:45:27 PICC Home Care Guide PICC Home Care Guide A peripherally inserted central catheter (PICC) is a form of IV access that allows medicines and IV fluids to be quickly distributed throughout the body. The PICC is a long, thin, flexible tube (catheter) that is inserted into a vein in the upper arm. The catheter ends in a large vein in the chest (superior vena cava, or SVC). After the PICC is inserted, a chest X-ray may be done to make sure that it is in the correct place. A PICC may be placed for different reasons, such as: To give medicines and liquid nutrition. To give IV fluids and blood products. If there is trouble placing a peripheral intravenous (PIV) catheter. If taken care of properly, a PICC can remain in place for several months. Having a PICC can also allow a person to go home from the hospital sooner. Medicine and PICC care can be managed at home by a family member, caregiver, or home health care team. What are the risks? Generally, having a PICC is safe. However, problems may occur, including: A blood clot (thrombus) forming in or at the tip of the PICC. A blood clot forming in a vein (deep vein thrombosis) or traveling to the lung (pulmonary embolism). Inflammation of the vein (phlebitis) in which the PICC is placed. Infection. Central line associated blood stream infection (CLABSI) is a serious infection that often requires hospitalization. PICC movement (malposition). The PICC tip may move from its original position due to excessive physical activity, forceful coughing, sneezing, or vomiting. A break or cut in the PICC. It is important not to use scissors near the PICC. Nerve or tendon irritation or injury during PICC insertion. How to take care of your PICC Preventing problems You and any caregivers should wash your hands often with soap. Wash hands: ?Before touching the PICC line or the infusion device. ?Before changing a bandage (dressing). Flush the PICC as told by your health care provider. Let your health care provider know right away if the PICC is hard to flush or does not flush. Do not use force to flush the PICC. Do not use a syringe that is less than 10 mL to flush the PICC. Avoid blood pressure checks on the arm in which the PICC is placed. Never pull or tug on the PICC. Do not take the PICC out yourself. Only a trained clinical professional should remove the PICC. Use clean and sterile supplies only. Keep the supplies in a dry place. Do not reuse needles, syringes, or any other supplies. Doing that can lead to infection. Keep pets and children away from your PICC line. Check the PICC insertion site every day for signs of infection. Check for: ?Leakage. ?Redness, swelling, or pain. ?Fluid or blood. ?Warmth. ?Pus or a bad smell. PICC dressing care Keep your PICC bandage (dressing) clean and dry to prevent infection. Do not take baths, swim, or use a hot tub until your health care provider approves. Ask your health care provider if you can take showers. You may only be allowed to take sponge baths for bathing. When you are allowed to shower: ?Ask your health care provider to teach you how to wrap the PICC line. ?Cover the PICC line with clear plastic wrap and tape to keep it dry while showering. Follow instructions from your health care provider about how to take care of your insertion site and dressing. Make sure you: ?Wash your hands with soap and water before you change your bandage (dressing). If soap and water are not available, use hand general assistant. ?Change your dressing as told by your health care provider. ?Leave stitches (sutures), skin glue, or adhesive strips in place. These skin closures may need to stay in place for 2 weeks or longer. If adhesive strip edges start to loosen and curl up, you may trim the loose edges. Do not remove adhesive strips completely unless your health care provider tells you to do that. Change your PICC dressing if it becomes loose or wet. General instructions Carry your PICC identification card or wear a medical alert bracelet at all times. Keep the tube clamped at all times, unless it is being used. Carry a smooth-edge clamp with you at all times to place on the tube if it breaks. Do not use scissors or sharp objects near the tube. You may bend your arm and move it freely. If your PICC is near or at the bend of your elbow, avoid activity with repeated motion at the elbow. Avoid lifting heavy objects as told by your health care provider. Keep all follow-up visits as told by your health care provider. This is important. Disposal of supplies Throw away any syringes in a disposal container that is meant for sharp items (sharps container). You can buy a sharps container from a pharmacy, or you can make one by using an empty hard plastic bottle with a cover. Place any used dressings or infusion bags into a plastic bag. Throw that bag in the trash. Contact a health care provider if: You have pain in your arm, ear, face, or teeth. You have a fever or chills. You have redness, swelling, or pain around the insertion site. You have fluid or blood coming from the insertion site. Your insertion site feels warm to the touch. You have pus or a bad smell coming from the insertion site. Your skin feels hard and raised around the insertion site. Get help right away if: Your PICC is accidentally pulled all the way out. If this happens, cover the insertion site with a bandage or gauze dressing. Do not throw the PICC away. Your health care provider will need to check it. Your PICC was tugged or pulled and has partially come out. Do not push the PICC back in. You cannot flush the PICC, it is hard to flush, or the PICC leaks around the insertion site when it is flushed. You hear a flushing sound when the PICC is flushed. You feel your heart racing or skipping beats. There is a hole or tear in the PICC. You have swelling in the arm in which the PICC was inserted. You have a red streak going up your arm from where the PICC was inserted. Summary A peripherally inserted central catheter (PICC) is a long, thin, flexible tube (catheter) that is inserted into a vein in the upper arm. The PICC is inserted using a sterile technique by a specially trained nurse or physician. Only a trained clinical professional should remove it. Keep your PICC identification card with you at all times. Avoid blood pressure checks on the arm in which the PICC is placed. If cared for properly, a PICC can remain in place for several months. Having a PICC can also allow a person to go home from the hospital sooner. This information is not intended to replace advice given to you by your health care provider. Make sure you discuss any questions you have with your health care provider. Document Released: 03/29/2004 Document Revised: 09/05/2018 Document Reviewed: 10/26/2017 [employer] Patient Education 2020 [employer] 07/02/2024 11:45:17 Peripheral Vascular Disease, Mvjd-lm-Zodm Peripheral Vascular Disease Peripheral vascular disease (PVD) is a disease of the blood vessels that are not part of your heart and brain. A simple term for PVD is poor circulation. In most cases, PVD narrows the blood vessels that carry blood from your heart to the rest of your body. This can reduce the supply of blood to your arms, legs, and internal organs, like your stomach or kidneys. However, PVD most often affects a person s lower legs and feet. Without treatment, PVD tends to get worse. PVD can also lead to acute ischemic limb. This is when an arm or leg suddenly cannot get enough blood. This is a medical emergency. Follow these instructions at home: Lifestyle Do not use any products that contain nicotine or tobacco, such as cigarettes and e-cigarettes. If you need help quitting, ask your doctor. Lose weight if you are overweight. Or, stay at a healthy weight as told by your doctor. Eat a diet that is low in fat and cholesterol. If you need help, ask your doctor. Exercise regularly. Ask your doctor for activities that are right for you. General instructions Take vmac-rmm-ybxhduy and prescription medicines only as told by your doctor. Take good care of your feet: ?Wear comfortable shoes that fit well. ?Check your feet often for any cuts or sores. Keep all follow-up visits as told by your doctor This is important. Contact a doctor if: You have cramps in your legs when you walk. You have leg pain when you are at rest. You have coldness in a leg or foot. Your skin changes. You are unable to get or have an erection (erectile dysfunction). You have cuts or sores on your feet that do not heal. Get help right away if: Your arm or leg turns cold, numb, and blue. Your arms or legs become red, warm, swollen, painful, or numb. You have chest pain. You have trouble breathing. You suddenly have weakness in your face, arm, or leg. You become very confused or you cannot speak. You suddenly have a very bad headache. You suddenly cannot see. Summary Peripheral vascular disease (PVD) is a disease of the blood vessels. A simple term for PVD is poor circulation. Without treatment, PVD tends to get worse. Treatment may include exercise, low fat and low cholesterol diet, and quitting smoking. This information is not intended to replace advice given to you by your health care provider. Make sure you discuss any questions you have with your health care provider. Document Released: 12/18/2010 Document Revised: 09/05/2018 Document Reviewed: 10/31/2017 [employer] Patient Education 2020 [employer]. 07/02/2024 11:45:09 Sepsis, Diagnosis, Adult Sepsis, Diagnosis, Adult Sepsis is a serious bodily reaction to an infection. The infection that triggers sepsis may be from a bacteria, virus, or fungus. Sepsis can result from an infection in any part of your body. Infections that commonly lead to sepsis include skin, lung, and urinary tract infections. Sepsis is a medical emergency that must be treated right away in a hospital. In severe cases, it can lead to septic shock. Septic shock can weaken your heart and cause your blood pressure to drop. This can cause your central nervous system and your body's organs to stop working. What are the causes? This condition is caused by a severe reaction to infections from bacteria, viruses, or fungus. The germs that most often lead to sepsis include: Escherichia coli (E. coli) bacteria. Staphylococcus aureus (staph) bacteria. Some types of Streptococcus bacteria. The most common infections affect these organs: The lung (pneumonia). The kidneys or bladder (urinary tract infection). The skin (cellulitis). The bowel, gallbladder, or pancreas. What increases the risk? You are more likely to develop this condition if: Your body's disease-fighting system (immune system) is weakened. You are age 65 or older. You are male. You had surgery or you have been hospitalized. You have these devices inserted into your body: ?A small, thin tube (catheter). ?IV line. ?Breathing tube. ?Drainage tube. You are not getting enough nutrients from food (malnourished). You have a long-term (chronic) disease, such as cancer, lung disease, kidney disease, or diabetes. You are . What are the signs or symptoms? Symptoms of this condition may include: Fever. Chills or feeling very cold. Confusion or anxiety. Fatigue. Muscle aches. Shortness of breath. Nausea and vomiting. Urinating much less than usual. Fast heart rate (tachycardia). Rapid breathing (hyperventilation). Changes in skin color. Your skin may look blotchy, pale, or blue. Cool, clammy, or sweaty skin. Skin rash. Other symptoms depend on the source of your infection. How is this diagnosed? This condition is diagnosed based on: Your symptoms. Your medical history. A physical exam. Other tests may also be done to find out the cause of the infection and how severe the sepsis is. These tests may include: Blood tests. Urine tests. Swabs from other areas of your body that may have an infection. These samples may be tested (cultured) to find out what type of bacteria is causing the infection. Chest X-ray to check for pneumonia. Other imaging tests, such as a CT scan, may also be done. Lumbar puncture. This removes a small amount of the fluid that surrounds your brain and spinal cord. The fluid is then examined for infection. How is this treated? This condition must be treated in a hospital. Based on the cause of your infection, you may be given an antibiotic, antiviral, or antifungal medicine. You may also receive: Fluids through an IV. Oxygen and breathing assistance. Medicines to increase your blood pressure. Kidney dialysis. This process cleans your blood if your kidneys have failed. Surgery to remove infected tissue. Blood transfusion if needed. Medicine to prevent blood clots. Nutrients to correct imbalances in basic body function (metabolism). You may: ?Receive important salts and minerals (electrolytes) through an IV. ?Have your blood sugar level adjusted. Follow these instructions at home: Medicines Take uqxj-xoh-riapwfg and prescription medicines only as told by your health care provider. If you were prescribed an antibiotic, antiviral, or antifungal medicine, take it as told by your health care provider. Do not stop taking the medicine even if you start to feel better. General instructions If you have a catheter or other indwelling device, ask to have it removed as soon as possible. Keep all follow-up visits as told by your health care provider. This is important. Contact a health care provider if: You do not feel like you are getting better or regaining strength. You are having trouble coping with your recovery. You frequently feel tired. You feel worse or do not seem to get better after surgery. You think you may have an infection after surgery. Get help right away if: You have any symptoms of sepsis. You have difficulty breathing. You have a rapid or skipping heartbeat. You become confused or disoriented. You have a high fever. Your skin becomes blotchy, pale, or blue. You have an infection that is getting worse or not getting better. These symptoms may represent a serious problem that is an emergency. Do not wait to see if the symptoms will go away. Get medical help right away. Call your local emergency services (911 in the [place] Do not drive yourself to the hospital. Summary Sepsis is a medical emergency that requires immediate treatment in a hospital. This condition is caused by a severe reaction to infections from bacteria, viruses, or fungus. Based on the cause of your infection, you may be given an antibiotic, antiviral, or antifungal medicine. Treatment may also include IV fluids, breathing assistance, and kidney dialysis. This information is not intended to replace advice given to you by your health care provider. Make sure you discuss any questions you have with your health care provider. Document Released: 06/21/2004 Document Revised: 05/01/2019 Document Reviewed: 05/01/2019 [employer] Patient Education 2020 [employer]. Follow Up Care 06/24/2024 15:29:31 With:JANEL CAMARENA Address: [address] [address]- When:08/03/2024 15:00:00 Comments:Urology - With:VERÓNICA TATUM MD Address: When:07/17/2024 10:40:00 Comments:Video call with Infectious Disease - With:[employer] Address: [address] [place] [address], [facility] [place], [place] [phone] When:07/22/2024 08:00:00 Comments:Kidney - With:Home Meds Address: When: Unknown Comments:Home medications were brought in, please return at discharge. With:Diana TATE Address: [facility] [address] [place] [address]- When:07/07/2024 15:00:00 Comments:Take Discharge Instructions to Dr Jessica Reno 07-02-2024 Physical medicine and rehab Progress note Subjective Patient reports that he is doing okay today, he denies any acute issues or concerns. There is some hematuria noted in the Machado catheter, states that when he was getting in and out of bed that he did feel the Machado catheter per slightly, states that he was not having any further issues with hematuria during his inpatient rehab stay or during hospitalization. He does continue on the meropenem, states that he is tolerating without any adverse reactions. Denies fever or chills. Does state therapy is going well, looking forward to discharging tomorrow Objective General: Alert, oriented no acute distress. Sitting in wheelchair, appears to be comfortable. No pain noted. Calm and pleasant. Interactive, cooperative. Good eye contact HEENT: No nasal drainage, EOMI, MMM Respiratory: Lungs clear nonlabored on room air; no cough/congestion Cardiovascular: Heart rate regular without tachycardia/heart murmur Edema/Varicosities of Extremities: No edema BLE Gastrointestinal: Abdomen soft/nondistended/nontender with bowel sounds present x 4 Genitourinary: No CVA tenderness, suprapubic tenderness, or bladder distention. Machado catheter with clear yellow urine in the Machado catheter bag, does have slight hematuria noted in the tubing VITALS [id number] (kg) 07/02 01:0036.7--[id number]/25 64.0 07/01 21:52----60----RA06/26 63.3 07/01 16:5636.4--[id number]/19 63.3 07/01 08:5136.2--222276GD 07/01 00:3836.2--809730RS 24 Hr Tmax: 36.7 at 07/02 01:00 36 Hr Tmax: 36.7 at 07/02 01:00 Vital Signs are the last 5 in the past 48 hours. Weights display the last 5 within 7 days. Initial Wt: 06/25 63.3 kg 139 lb Current Wt: 07/01 64.0 kg 141 lb LABS No 36 Hour Lab Data Medications Active Inpt Meds: apixaban (Eliquis) Start: 06/26/24 21:00:00 EDT, Dose = 5 mg, = 1 tab(s), Oral, BID, Indication for Use Persistant atrial fibrillation, 06/26/24 19:02:00 EDT atorvastatin Start: 06/26/24 22:00:00 EDT, Dose = 80 mg, = 1 tab(s), Oral, Daily, 06/26/24 19:02:00 EDT cholecalciferol (cholecalciferol 50 mcg (2000 intl units) oral tablet) Start: 06/27/24 9:00:00 EDT, Dose = 100 mcg, = 2 tab(s), Oral, Daily, 0, 06/26/24 19:02:00 EDT clopidogrel Start: 06/26/24 19:02:00 EDT, Dose = 75 mg, = 1 tab(s), Oral, qDay, 06/26/24 19:02:00 EDT darbepoetin sridevi Start: 06/29/24 9:00:00 EDT, Dose = 60 mcg, = 0.3 mL, Subcutaneous, Saturday, Indication for Use Other (please specify in ORDER COMMENTS), 0 doxazosin (doxazosin 8 mg oral tablet) Start: 06/26/24 21:00:00 EDT, Dose = 8 mg, = 1 tab(s), Oral, qHS, 06/26/24 19:03:00 EDT emollients, topical (emollients (Eucerin Cream) Cream) Start: 06/29/24 10:32:00 EDT, Dose = 1 sunshine, Topical, BID, Apply to: Legs bilaterally, Cream, 06/29/24 9:58:00 EDT gabapentin Start: 06/26/24 21:00:00 EDT, Dose = 300 mg, = 1 cap(s), Oral, BID, 06/26/24 19:03:00 EDT isosorbide mononitrate Start: 06/27/24 7:00:00 EDT, Dose = 30 mg, = 1 tab(s), Oral, qAM, Patient's Own Med, 0 lidocaine (lidocaine Patch REMOVAL) Start: 06/26/24 22:00:00 EDT, Dose = 1 EA, Misc, Miscellaneous, q24h, 0 lidocaine topical (lidocaine 4% patch) Start: 06/27/24 10:00:00 EDT, Dose = 1 patch(es), Film, Transdermal, qDay, Apply to: skin melatonin Start: 06/26/24 21:00:00 EDT, Dose = 5 mg, = 1 tab(s), Oral, qHS, 06/26/24 19:03:00 EDT meropenem (Merrem) Start: 06/27/24 9:00:00 EDT, Dose = 2 gram(s), IV Piggyback, q12h, Stop: 07/15/24 22:00:00 EDT, Rate: 33.33 mL/hr, Infuse over: 3 hour(s), 0 metoprolol (Metoprolol Tartrate 25 mg oral tablet) Start: 06/26/24 19:03:00 EDT, Dose = 25 mg, = 1 tab(s), Oral, BID, Hold if HR (bpm) < 55, 0, 06/26/24 19:03:00 EDT pantoprazole (Protonix) Start: 06/27/24 7:00:00 EDT, Dose = 40 mg, = 1 tab(s), Oral, qDay, 0, 06/26/24 19:03:00 EDT predniSONE Start: 06/26/24 19:03:00 EDT, Dose = 5 mg, = 1 tab(s), Oral, qDay, 0, 06/26/24 19:03:00 EDT tacrolimus (tacrolimus 0.5 mg oral capsule) Start: 06/27/24 9:00:00 EDT, Dose = 1.5 mg, = 3 cap(s), Oral, qAM, 0, 06/26/24 20:47:00 EDT Active PRN Meds: Al hydroxide/Mg hydroxide/simethicone (Maalox) Start: 06/26/24 18:57:00 EDT, Dose = 30 mL, Susp, Oral, q6h, PRN, Indigestion, 06/26/24 18:57:00 EDT acetaminophen (Tylenol) Start: 06/26/24 18:57:00 EDT, Dose = 650 mg, = 2 tab(s), Oral, q4h, PRN, Muscle pain, 06/26/24 18:57:00 EDT albuterol-ipratropium (DuoNeb 0.5 mg - 2.5 mg/3 mL inhalation soln) Start: 06/26/24 20:31:00 EDT, Dose = 3 mL, Soln, Inhalation, QIDRT, PRN, as needed for shortness of breath or wheezing, 0, 06/26/24 20:23:00 EDT docusate (Colace) Start: 06/26/24 18:57:00 EDT, Dose = 100 mg, = 1 cap(s), Oral, BID, PRN, Constipation, 06/26/24 18:57:00 EDT glucagon (GlucaGen) Start: 06/26/24 18:57:00 EDT, Dose = 1 mg, = 1 mL, Intramuscular, AsDirected, PRN, Hypoglycemia, if unresponsive, NO IV ACCESS & blood glucose less than 70mg/dL. If still unresponsive after 2 minutes, REPEAT x1., 06/26/24 18:57:00 EDT glucose (Dextrose 50% IV Push) Start: 06/26/24 18:57:00 EDT, Dose = 12.5 gram(s), = 25 mL, IV Push, AsDirected, PRN, Hypoglycemia, if unresponsive WITH IV ACCESS & blood glucose less than 70mg/dL. If still unresponsive after 2 minutes, REPEAT x1., 06/26/24 18:57:00 EDT glucose Start: 06/26/24 18:57:00 EDT, Dose = 16 gram(s), = 4 tab(s), Chewed, AsDirected, PRN, Hypoglycemia, DIABETIC PATIENT if responsive & blood glucose less than 70mg/dL. If blood glucose less than 70mg/dL after 15 minutes, REPEAT x1., 0, 06/26/24 18:5... glycerin (glycerin adult rectal suppository) Start: 06/26/24 18:57:00 EDT, Dose = 1 supp, Supp, Rectal, Daily, PRN, Constipation, 06/26/24 18:57:00 EDT magnesium hydroxide (Milk of Magnesia) Start: 06/26/24 18:57:00 EDT, Dose = 30 mL, Susp-Oral, Oral, qDay, PRN, Constipation, 06/26/24 18:57:00 EDT polyethylene glycol 3350 (Miralax Powder Packet) Start: 06/26/24 18:57:00 EDT, Dose = 17 gram(s), = 15 mL, Oral, qDay, PRN, Constipation, 06/26/24 18:57:00 EDT traMADol Start: 06/26/24 19:03:00 EDT, Dose = 50 mg, = 1 tab(s), Oral, q12h, PRN, Pain, 0, 06/26/24 19:03:00 EDT One Time Meds: None Active IV Meds: None Problems (17) Acute DVT (deep venous thrombosis) (1685374786) Afib (64721280) AMS (altered mental status) (8471920790) Bacteremia (18126192) CAD (coronary artery disease) of bypass graft (4315041795) Cardiogenic shock (150155681) Debility (28065592) ESRD (end stage renal disease) (6874218890) Factor V Leiden (634670528) HTN (hypertension) (5598687248) Lethargy (636274674) NSTEMI (non-ST elevated myocardial infarction) (66621082) Pseudomonas urinary tract infection (5701440378) PVD (peripheral vascular disease) (8790691045) Scrotal swelling (608554735) Septic shock (946386980) Urinary retention (009195981) ASSESSMENT/PLAN: Septic shock with altered mental status and fevers. He was transferred to [facility] due to septic shock secondary to Pseudomonas bacteremia. This is likely due to a UTI as patient has history of urinary retention and straight caths at home. He is currently on IV meropenem until July 15. Infectious disease is following. Working with PT, OT, and ST services Non-STEMI, echocardiogram was obtained and ejection fraction was 50% at that time. Also revealed mild apical hypokinesis involving basal anterior and anteroseptal hre. This is currently being medically managed at this time DVT, DVT in the right subclavian. He has history of DVT as well. He was also found to have factor V Leiden. He is currently on Eliquis 5 mg twice daily. Urinary retention, currently has Machado catheter in place draining clear yellow urine. Appointment with urology 06/29 completed, no new orders. End-stage renal disease, baseline creatinine is poor ranging from 1.8-2.2. He has history of kidney transplant in 1993 and 2009. Hypertension, blood pressures are currently controlled okay on Imdur and metoprolol. Monitoring Urinary retention, Machado cath currently in place and patient on doxazosin 8 mg at bedtime. He has an upcoming appointment with urology CAD: Patient has history of CABG. He remains on metoprolol, Plavix, and high intensity atorvastatin 80 mg daily. PAD: History of femoral bypass. He remains on Plavix as well. GERD: Currently treated with pantoprazole 40 mg daily. COPD: Patient has as needed DuoNeb nebulizer treatments in place. Lungs remain clear. Respiratory status stable Hyperlipidemia: Patient remains on high intensity atorvastatin 80 mg daily. Atrial fibrillation: Currently treated with metoprolol and Eliquis. Bradycardia holding parameters on metoprolol for heart rate less than 55. Monitoring heart rates closely. Intermittent episodes of hypoxia that increases with exertion. Continues to breathe comfortably on room air EKG obtained yesterday which does not show any acute ischemic changes Chronic anemia and thrombocytopenia stable on CBC Optimizing for discharge tomorrow patient currently ambulating 250 feet at an independent level, 12 stairs with touch assist level, going home with assistance from the and home health care the is a nurse and will help assist with antibiotic administration. Machado catheter remain in place urology follow-up August 03 Small episode of hematuria this morning patient reports he had pulled on the catheter throughout the night, he is on the Eliquis there is no evidence of substantial blood loss at this time we will follow-up if hematuria recurs Medications reviewed and up to date This document was transcribed using dictation software and may contain typographical errors. Vernon Fuentes RN, am scribing for , and in the presence of Dr. Blood. I, Dr. Blood, personally performed the services described in this documentation, as scribed byVernon RN in my presence and it is both accurate and complete. Digitally Signed by PORSHA BLOOD DO on 07/02/2024 02:34 PM Christal Reno 07-01-2024 Telephone encounter Note Phoned Christal Ambrocio and spoke to Facundo went over notes from Dr Mendoza with understanding. [facility] 07-01-2024 Miscellaneous Notes Phoned Christal Ambrocio and spoke to Facundo went over notes from Dr Mendoza with understanding. ok Bre with [facility] calling to see if you will follow pt for Home Care, nursing, PT and OT. DX septic shock. [facility]. Please advise Bre with [facility] Care with verbal orders. Sarah Landa LPN documented in this encounter [facility] 07-01-2024 Telephone encounter Note ok [facility] Work Phone: 07-01-2024 Telephone encounter Note Bre with [facility] calling to see if you will follow pt for Home Care, nursing, PT and OT. DX septic shock. [facility]07-[facility]. Please advise Bre with [facility] with verbal orders. Sarah Landa LPN [facility] 07-01-2024 Physical medicine and rehab Progress note Subjective Patient states he is doing okay this morning. Denies any chest pain, chest pressure, or heart palpitations heart rates ranging 58 62. Denies any shortness of breath or conversational dyspnea states breathing is comfortable. States therapies are going well and denies any uncontrolled pain. Staff reports bowels are moving. Objective General: Alert and oriented, no acute distress. Sitting up in wheelchair, appears comfortable, and does not appear in acute pain. Pleasant and cooperative. Good eye contact with flat affect HEENT: No nasal drainage, EOMI, and MMM Respiratory: Lungs clear to auscultation, respirations unlabored on room air. No cough, congestion, or conversational dyspnea Cardiovascular: Heart rate is regular. No bradycardia, tachycardia, or heart murmur Edema/Varicosities of Extremities: No edema to the bilateral lower extremities. No calf tenderness Gastrointestinal: Bowel sounds are present in all four quadrants. Abdomen is nontender, soft, and nondistended Genitourinary: No CVA tenderness, suprapubic tenderness, or bladder distention VITALS [id number] (kg) 07/01 08:51----62------07/01 64.0 07/01 00:3836.2--538352OJ37/20 63.3 06/30 21:0336.5--164719QL47/19 63.3 06/30 17:23----58----RA 06/30 17:21----58----RA 24 Hr Tmax: 36.5 at 06/30 21:03 36 Hr Tmax: 36.5 at 06/30 21:03 Vital Signs are the last 5 in the past 48 hours. Weights display the last 5 within 7 days. Initial Wt: 06/25 63.3 kg 139 lb Current Wt: 07/01 64.0 kg 141 lb LABS No 36 Hour Lab Data Medications Active Inpt Meds: apixaban (Eliquis) Start: 06/26/24 21:00:00 EDT, Dose = 5 mg, = 1 tab(s), Oral, BID, Indication for Use Persistant atrial fibrillation, 06/26/24 19:02:00 EDT atorvastatin Start: 06/26/24 22:00:00 EDT, Dose = 80 mg, = 1 tab(s), Oral, Daily, 06/26/24 19:02:00 EDT cholecalciferol (cholecalciferol 50 mcg (2000 intl units) oral tablet) Start: 06/27/24 9:00:00 EDT, Dose = 100 mcg, = 2 tab(s), Oral, Daily, 0, 06/26/24 19:02:00 EDT clopidogrel Start: 06/26/24 19:02:00 EDT, Dose = 75 mg, = 1 tab(s), Oral, qDay, 06/26/24 19:02:00 EDT darbepoetin sridevi Start: 06/29/24 9:00:00 EDT, Dose = 60 mcg, = 0.3 mL, Subcutaneous, Saturday, Indication for Use Other (please specify in ORDER COMMENTS), 0 doxazosin (doxazosin 8 mg oral tablet) Start: 06/26/24 21:00:00 EDT, Dose = 8 mg, = 1 tab(s), Oral, qHS, 06/26/24 19:03:00 EDT emollients, topical (emollients (Eucerin Cream) Cream) Start: 06/29/24 10:32:00 EDT, Dose = 1 sunshine, Topical, BID, Apply to: Legs bilaterally, Cream, 06/29/24 9:58:00 EDT gabapentin Start: 06/26/24 21:00:00 EDT, Dose = 300 mg, = 1 cap(s), Oral, BID, 06/26/24 19:03:00 EDT isosorbide mononitrate Start: 06/27/24 7:00:00 EDT, Dose = 30 mg, = 1 tab(s), Oral, qAM, Patient's Own Med, 0 lidocaine (lidocaine Patch REMOVAL) Start: 06/26/24 22:00:00 EDT, Dose = 1 EA, Misc, Miscellaneous, q24h, 0 lidocaine topical (lidocaine 4% patch) Start: 06/27/24 10:00:00 EDT, Dose = 1 patch(es), Film, Transdermal, qDay, Apply to: skin melatonin Start: 06/26/24 21:00:00 EDT, Dose = 5 mg, = 1 tab(s), Oral, qHS, 06/26/24 19:03:00 EDT meropenem (Merrem) Start: 06/27/24 9:00:00 EDT, Dose = 2 gram(s), IV Piggyback, q12h, Stop: 07/15/24 22:00:00 EDT, Rate: 33.33 mL/hr, Infuse over: 3 hour(s), 0 metoprolol (Metoprolol Tartrate 25 mg oral tablet) Start: 06/26/24 19:03:00 EDT, Dose = 25 mg, = 1 tab(s), Oral, BID, Hold if HR (bpm) < 55, 0, 06/26/24 19:03:00 EDT pantoprazole (Protonix) Start: 06/27/24 7:00:00 EDT, Dose = 40 mg, = 1 tab(s), Oral, qDay, 0, 06/26/24 19:03:00 EDT predniSONE Start: 06/26/24 19:03:00 EDT, Dose = 5 mg, = 1 tab(s), Oral, qDay, 0, 06/26/24 19:03:00 EDT tacrolimus (tacrolimus 0.5 mg oral capsule) Start: 06/27/24 9:00:00 EDT, Dose = 1.5 mg, = 3 cap(s), Oral, qAM, 0, 06/26/24 20:47:00 EDT Active PRN Meds: Al hydroxide/Mg hydroxide/simethicone (Maalox) Start: 06/26/24 18:57:00 EDT, Dose = 30 mL, Susp, Oral, q6h, PRN, Indigestion, 06/26/24 18:57:00 EDT acetaminophen (Tylenol) Start: 06/26/24 18:57:00 EDT, Dose = 650 mg, = 2 tab(s), Oral, q4h, PRN, Muscle pain, 06/26/24 18:57:00 EDT albuterol-ipratropium (DuoNeb 0.5 mg - 2.5 mg/3 mL inhalation soln) Start: 06/26/24 20:31:00 EDT, Dose = 3 mL, Soln, Inhalation, QIDRT, PRN, as needed for shortness of breath or wheezing, 0, 06/26/24 20:23:00 EDT docusate (Colace) Start: 06/26/24 18:57:00 EDT, Dose = 100 mg, = 1 cap(s), Oral, BID, PRN, Constipation, 06/26/24 18:57:00 EDT glucagon (GlucaGen) Start: 06/26/24 18:57:00 EDT, Dose = 1 mg, = 1 mL, Intramuscular, AsDirected, PRN, Hypoglycemia, if unresponsive, NO IV ACCESS & blood glucose less than 70mg/dL. If still unresponsive after 2 minutes, REPEAT x1., 06/26/24 18:57:00 EDT glucose (Dextrose 50% IV Push) Start: 06/26/24 18:57:00 EDT, Dose = 12.5 gram(s), = 25 mL, IV Push, AsDirected, PRN, Hypoglycemia, if unresponsive WITH IV ACCESS & blood glucose less than 70mg/dL. If still unresponsive after 2 minutes, REPEAT x1., 06/26/24 18:57:00 EDT glucose Start: 06/26/24 18:57:00 EDT, Dose = 16 gram(s), = 4 tab(s), Chewed, AsDirected, PRN, Hypoglycemia, DIABETIC PATIENT if responsive & blood glucose less than 70mg/dL. If blood glucose less than 70mg/dL after 15 minutes, REPEAT x1., 0, 06/26/24 18:5... glycerin (glycerin adult rectal suppository) Start: 06/26/24 18:57:00 EDT, Dose = 1 supp, Supp, Rectal, Daily, PRN, Constipation, 06/26/24 18:57:00 EDT magnesium hydroxide (Milk of Magnesia) Start: 06/26/24 18:57:00 EDT, Dose = 30 mL, Susp-Oral, Oral, qDay, PRN, Constipation, 06/26/24 18:57:00 EDT polyethylene glycol 3350 (Miralax Powder Packet) Start: 06/26/24 18:57:00 EDT, Dose = 17 gram(s), = 15 mL, Oral, qDay, PRN, Constipation, 06/26/24 18:57:00 EDT traMADol Start: 06/26/24 19:03:00 EDT, Dose = 50 mg, = 1 tab(s), Oral, q12h, PRN, Pain, 0, 06/26/24 19:03:00 EDT One Time Meds: None Active IV Meds: None Problems (17) Acute DVT (deep venous thrombosis) (7610440398) Afib (38530072) AMS (altered mental status) (4036426549) Bacteremia (56564484) CAD (coronary artery disease) of bypass graft (5945916509) Cardiogenic shock (604907466) Debility (20986058) ESRD (end stage renal disease) (2407486654) Factor V Leiden (661890963) HTN (hypertension) (5576797746) Lethargy (284114570) NSTEMI (non-ST elevated myocardial infarction) (46136938) Pseudomonas urinary tract infection (5361565297) PVD (peripheral vascular disease) (3791107586) Scrotal swelling (006670430) Septic shock (441673124) Urinary retention (868614390) ASSESSMENT/PLAN: Septic shock with altered mental status and fevers. He was transferred to [facility] due to septic shock secondary to Pseudomonas bacteremia. This is likely due to a UTI as patient has history of urinary retention and straight caths at home. He is currently on IV meropenem until July 15. Infectious disease is following. Working with PT, OT, and ST services Non-STEMI, echocardiogram was obtained and ejection fraction was 50% at that time. Also revealed mild apical hypokinesis involving basal anterior and anteroseptal her. This is currently being medically managed at this time DVT, DVT in the right subclavian. He has history of DVT as well. He was also found to have factor V Leiden. He is currently on Eliquis 5 mg twice daily. Urinary retention, currently has Machado catheter in place draining clear yellow urine. Appointment with urology 06/29 completed, no new orders. End-stage renal disease, baseline creatinine is poor ranging from 1.8-2.2. He has history of kidney transplant in 1993 and 2009. Hypertension, blood pressures are currently controlled okay on Imdur and metoprolol. Will continue to monitor. Urinary retention, Machado cath currently in place and patient on doxazosin 8 mg at bedtime. He has an upcoming appointment with urology CAD: Patient has history of CABG. He remains on metoprolol, Plavix, and high intensity atorvastatin 80 mg daily. PAD: History of femoral bypass. He remains on Plavix as well. GERD: Currently treated with pantoprazole 40 mg daily. Denies any GI upset COPD: Patient has as needed DuoNeb nebulizer treatments in place. Lungs remain clear. Respiratory status currently stable Hyperlipidemia: Patient remains on high intensity atorvastatin 80 mg daily. Atrial fibrillation: Currently treated with metoprolol and Eliquis. Bradycardia holding parameters on metoprolol for heart rate less than 55. Monitoring heart rates closely. Labs reviewed and stable in nature. Weekly labs due to patient being on IV antibiotics. Renal function stable, no clinical signs of worsening infection Intermittent episodes of hypoxia that increases with exertion. Continues to breathe comfortably on room air EKG obtained yesterday which does not show any acute ischemic changes Chronic anemia and thrombocytopenia stable on CBC Ambulating 300 feet with limitations due to unsteadiness, anticipated discharge for 07/06 EKG reviewed shows normal sinus rhythm Weekly lab work on Saturday trending from an infectious standpoint Prescription for meropenem signed today to help assist with transition to home health care Medications reviewed and up to date This document was transcribed using dictation software and may contain typographical errors. Fernandez Fuentes RN, am scribing for , and in the presence of Dr. Blood. I, Dr. Blood, personally performed the services described in this documentation, as scribed byFernandez RN in my presence and it is both accurate and complete. Digitally Signed by PORSHA BLOOD DO on 07/02/2024 08:53 AM Christal [facility]ilawn 06-30-2024 Physical medicine and rehab Progress note Date of Service 06/30 Chief Complaint s/p septic shock Subjective Patient is a -year-old seen today in follow-up. Case discussed in team staffing. Weekly rehab report is reviewed. Case discussed with family. All questions are answered. Plan is to continue acute rehab with PT OT and services. Continue to work on gait training range of motion strengthening ADLs self-care speech-language and dysphagia therapy. Supervision for mobility and self-care Goal is for discharge home at a modified independent level with probable home care services. Plan discharge date Barriers to discharge IV ATB For further details, please see electronic team staffing note Medication list reviewed Objective Vitals and Measurements T: 36.4 C (Temporal Artery) TMIN: 36.4 C (Temporal Artery) TMAX: 36.5 C (Temporal Artery) HR: 54 (Apical) RR: 16 BP: 134/56 SpO2: 96% Intake and Output 7AM Yesterday to 7AM Today Intake and Output (Last 24 hours) Intake Oral Intake 240.00 Output Urinary Catheter Output: 1150.00 Total Summary Total Intake 240.00 Total Output 1150.00 Fluid Balance -910.00 Physical Exam General Appearance: Alert and oriented 3 no apparent distress Head: Normocephalic no evidence of trauma EENT: Pupils equal and reactive to light and accommodation no erythema. Ears with no external lesions or discharge. Nose clear nares patent no discharge. Throat normal healthy dentition no redness or erythema. Neck: Trachea midline. No lymphatic adenopathy Cardiac: Regular rate and rhythm, no rubs or murmurs Lungs: Clear to auscultation, no adventitious sounds, good aeration Abdomen: Soft nontender no organomegaly or rebound positive bowel sounds Musculoskeletal: Intact range of motion no erythema no polyarthritic changes Extremities: No edema. Negative Homans sign Neurological: Cranial nerves II through XII grossly intact. Strength 5 out of 5. Sensation intact. Deep tendon reflexes 2 out of 4 Skin: Intact without rashes or erythema PICC line in place. No erythema or drainage. Status post sepsis. Plan acute rehabilitation physical and Occupational Therapy Psychiatric: Mood good. No anxiety depression Medication list reviewed Therapy notes reviewed Weight Dosing Weight: 63.3 kg (06/26/24) Dosing Weight: 63.3 kg (06/25/24) Medications Medications (28) Active Scheduled: (17) apixaban 5 mg tablet 5 mg 1 tab(s), Oral, BID atorvastatin 80 mg tablet 80 mg 1 tab(s), Oral, Daily cholecalciferol 50 mcg tablet (Vit D3 2000 unit(s)) 100 mcg 2 tab(s), Oral, Daily clopidogrel 75 mg Tablet 75 mg 1 tab(s), Oral, qDay darbepoetin sridevi 60 mcg/0.3 mL Syringe 60 mcg 0.3 mL, Subcutaneous, Saturday doxazosin 8 mg Tablet 8 mg 1 tab(s), Oral, qHS emollients (Eucerin Cream) 30gm 1 sunshine, Topical, BID gabapentin 300 mg Capsule 300 mg 1 cap(s), Oral, BID isosorbide mononitrate 30 mg ER tablet 30 mg 1 tab(s), Oral, qAM lidocaine patch REMOVAL 1 EA, Miscellaneous, q24h lidocaine topical 4% patch 1 patch(es), Transdermal, qDay melatonin 5 mg tablet 5 mg 1 tab(s), Oral, qHS meropenem 2 gram(s), IV Piggyback, q12h metoprolol tartrate 25 mg tablet 25 mg 1 tab(s), Oral, BID pantoprazole 40 mg EC tablet 40 mg 1 tab(s), Oral, qDay predniSONE 5 mg tablet 5 mg 1 tab(s), Oral, qDay tacrolimus 0.5 mg capsule 1.5 mg 3 cap(s), Oral, qAM Continuous: (0) PRN: (11) acetaminophen 325 mg Tablet 650 mg 2 tab(s), Oral, q4h Al hydrox/Mg hydrox/simethicone 200-200-20 mg/5 mL Susp UD 30 mL, Oral, q6h albuterol - ipratropium 2.5 mg-0.5 mg/3 mL Inhal Shirley UD 3 mL, Inhalation, QIDRT dextrose 50% Solution Disp syringe 50 mL 12.5 gram(s) 25 mL, IV Push, AsDirected docusate sodium 100 mg Capsule 100 mg 1 cap(s), Oral, BID glucagon recombinant 1 mg 1 mg 1 mL, Intramuscular, AsDirected glucose 4 gm Chewable 16 gram(s) 4 tab(s), Chewed, AsDirected glycerin adult Suppository 1 supp, Rectal, Daily magnesium hydroxide 8% Suspension 30 mL UD 30 mL, Oral, qDay polyethylene glycol 3350 - UD packet 17 gram(s) 15 mL, Oral, qDay tramadol 50 mg Tablet 50 mg 1 tab(s), Oral, q12h Lab Results 06/29 05:55 WBC: 3.5 L Hgb: 8.7 L Hct: 27.5 L Platelet: 135 L Neutrophil %: 41.6 L Glucose Level: 84 Sodium Level: 141 Potassium Level: 4.6 BUN: 26.0 H Creatinine Lvl (s): 1.34 EKG Electrocardiogram (EKG) - InProcess -- 06/29/24 9:01:00 EDT, stat Assessment/Plan 1. AMS (altered mental status) Acute rehabilitation physical and Occupational Therapy 2. Afib 3. CAD (coronary artery disease) of bypass graft Secondary prevention 4. Factor V Leiden 5. HTN (hypertension) Stable on current regimen 6. PVD (peripheral vascular disease) 7. Septic shock Resolved. Continue V antibiotics. 8. Debility Reconditioning and strengthening. Secondary prevention. Orders: Electrocardiogram(EKG), 06/29/24 9:01:00 EDT, stat Anticipated Date of Discharge 07/03 Time Spent 25 min Digitally Signed by FARZANA DAVIS DO on 06/30/2024 10:35 AM Christal Josuen 06-30-2024 Note Subjective Patient states overall he is doing well today. States that he is not having any further chest pain or heart palpitations. States he did have some increase shortness of breath yesterday but he does state that has resolved as well. States he had good night sleep last night. He does state that he met with the urologist yesterday, states that they are trying to figure out the best case scenario as patient will return to straight catheterization at home or keep the Machado catheter. States that overall he is doing well with the Machado catheter. Denies any fever or chills at this time. He is on the IV meropenem which he states that he is tolerating without any adverse reactions. Objective General: Alert, oriented NAD. Appears comfortable sitting in chair, at bedside, no pain noted. Calm and pleasant. Interactive. Good eye contact HEENT: No nasal drainage, EOMI, MMM Respiratory: LCTA nonlabored on RA; no cough/congestion Cardiovascular: HRR; no tachycardia; no murmur Edema/Varicosities of Extremities: 3+ edema bilateral lower extremities, 2+ edema bilateral thighs Gastrointestinal: Bowel sounds present x 4 with abdomen soft/nondistended/nontender Genitourinary: No suprapubic tenderness, CVA tenderness, or bladder distention. Machado catheter draining clear, light yellow urine without sediment or hematuria VITALS [id number] (kg) 06/30 05:5436.5--69--93RA06/26 63.3 06/29 21:5536.5--[id number]/19 63.3 06/29 18:07----62----RA 06/29 08:57----65----RA 06/29 08:5036.9--[id number] 24 Hr Tmax: 36.9 at 06/29 08:50 36 Hr Tmax: 36.9 at 06/29 08:50 Vital Signs are the last 5 in the past 48 hours. Weights display the last 5 within 7 days. Initial Wt: 06/25 63.3 kg 139 lb Current Wt: 06/26 63.3 kg 139 lb LABS 06/29 05:55 WBC: 3.5 L Hgb: 8.7 L Hct: 27.5 L Platelet: 135 L Neutrophil %: 41.6 L Glucose Level: 84 Sodium Level: 141 Potassium Level: 4.6 BUN: 26.0 H Creatinine Lvl (s): 1.34 Medications Active Inpt Meds: apixaban (Eliquis) Start: 06/26/24 21:00:00 EDT, Dose = 5 mg, = 1 tab(s), Oral, BID, Indication for Use Persistant atrial fibrillation, 06/26/24 19:02:00 EDT atorvastatin Start: 06/26/24 22:00:00 EDT, Dose = 80 mg, = 1 tab(s), Oral, Daily, 06/26/24 19:02:00 EDT cholecalciferol (cholecalciferol 50 mcg (2000 intl units) oral tablet) Start: 06/27/24 9:00:00 EDT, Dose = 100 mcg, = 2 tab(s), Oral, Daily, 0, 06/26/24 19:02:00 EDT clopidogrel Start: 06/26/24 19:02:00 EDT, Dose = 75 mg, = 1 tab(s), Oral, qDay, 06/26/24 19:02:00 EDT darbepoetin sridevi Start: 06/29/24 9:00:00 EDT, Dose = 60 mcg, = 0.3 mL, Subcutaneous, Saturday, Indication for Use Other (please specify in ORDER COMMENTS), 0 doxazosin (doxazosin 8 mg oral tablet) Start: 06/26/24 21:00:00 EDT, Dose = 8 mg, = 1 tab(s), Oral, qHS, 06/26/24 19:03:00 EDT emollients, topical (emollients (Eucerin Cream) Cream) Start: 06/29/24 10:32:00 EDT, Dose = 1 sunshine, Topical, BID, Apply to: Legs bilaterally, Cream, 06/29/24 9:58:00 EDT gabapentin Start: 06/26/24 21:00:00 EDT, Dose = 300 mg, = 1 cap(s), Oral, BID, 06/26/24 19:03:00 EDT isosorbide mononitrate Start: 06/27/24 7:00:00 EDT, Dose = 30 mg, = 1 tab(s), Oral, qAM, Patient's Own Med, 0 lidocaine (lidocaine Patch REMOVAL) Start: 06/26/24 22:00:00 EDT, Dose = 1 EA, Misc, Miscellaneous, q24h, 0 lidocaine topical (lidocaine 4% patch) Start: 06/27/24 10:00:00 EDT, Dose = 1 patch(es), Film, Transdermal, qDay, Apply to: skin melatonin Start: 06/26/24 21:00:00 EDT, Dose = 5 mg, = 1 tab(s), Oral, qHS, 06/26/24 19:03:00 EDT meropenem (Merrem) Start: 06/27/24 9:00:00 EDT, Dose = 2 gram(s), IV Piggyback, q12h, Stop: 07/15/24 22:00:00 EDT, Rate: 33.33 mL/hr, Infuse over: 3 hour(s), 0 metoprolol (Metoprolol Tartrate 25 mg oral tablet) Start: 06/26/24 19:03:00 EDT, Dose = 25 mg, = 1 tab(s), Oral, BID, Hold if HR (bpm) < 55, 0, 06/26/24 19:03:00 EDT pantoprazole (Protonix) Start: 06/27/24 7:00:00 EDT, Dose = 40 mg, = 1 tab(s), Oral, qDay, 0, 06/26/24 19:03:00 EDT predniSONE Start: 06/26/24 19:03:00 EDT, Dose = 5 mg, = 1 tab(s), Oral, qDay, 0, 06/26/24 19:03:00 EDT tacrolimus (tacrolimus 0.5 mg oral capsule) Start: 06/27/24 9:00:00 EDT, Dose = 1.5 mg, = 3 cap(s), Oral, qAM, 0, 06/26/24 20:47:00 EDT Active PRN Meds: Al hydroxide/Mg hydroxide/simethicone (Maalox) Start: 06/26/24:57:00 EDT, Dose = 30 mL, Susp, Oral, q6h, PRN, Indigestion, 06/26/24:57:00 EDT acetaminophen (Tylenol) Start: 06/26/24:57:00 EDT, Dose = 650 mg, = 2 tab(s), Oral, q4h, PRN, Muscle pain, 06/26/24:57:00 EDT albuterol-ipratropium (DuoNeb 0.5 mg - 2.5 mg/3 mL inhalation soln) Start: 06/26/24 20:31:00 EDT, Dose = 3 mL, Soln, Inhalation, QIDRT, PRN, as needed for shortness of breath or wheezing, 0, 06/26/24 20:23:00 EDT docusate (Colace) Start: 06/26/24:57:00 EDT, Dose = 100 mg, = 1 cap(s), Oral, BID, PRN, Constipation, 06/26/24 18:57:00 EDT glucagon (GlucaGen) Start: 06/26/2457:00 EDT, Dose = 1 mg, = 1 mL, Intramuscular, AsDirected, PRN, Hypoglycemia, if unresponsive, NO IV ACCESS & blood glucose less than 70mg/dL. If still unresponsive after 2 minutes, REPEAT x1., 06/26/2457:00 EDT glucose (Dextrose 50% IV Push) Start: 06/26/24:57:00 EDT, Dose = 12.5 gram(s), = 25 mL, IV Push, AsDirected, PRN, Hypoglycemia, if unresponsive WITH IV ACCESS & blood glucose less than 70mg/dL. If still unresponsive after 2 minutes, REPEAT x1., 06/26/24:57:00 EDT glucose Start: 06/26/2457:00 EDT, Dose = 16 gram(s), = 4 tab(s), Chewed, AsDirected, PRN, Hypoglycemia, DIABETIC PATIENT if responsive & blood glucose less than 70mg/dL. If blood glucose less than 70mg/dL after 15 minutes, REPEAT x1., 0, 06/26/24 18:5... glycerin (glycerin adult rectal suppository) Start: 06/26/24 18:57:00 EDT, Dose = 1 supp, Supp, Rectal, Daily, PRN, Constipation, 06/26/24 18:57:00 EDT magnesium hydroxide (Milk of Magnesia) Start: 06/26/24 18:57:00 EDT, Dose = 30 mL, Susp-Oral, Oral, qDay, PRN, Constipation, 06/26/24 18:57:00 EDT polyethylene glycol 3350 (Miralax Powder Packet) Start: 06/26/24 18:57:00 EDT, Dose = 17 gram(s), = 15 mL, Oral, qDay, PRN, Constipation, 06/26/24 18:57:00 EDT traMADol Start: 06/26/24 19:03:00 EDT, Dose = 50 mg, = 1 tab(s), Oral, q12h, PRN, Pain, 0, 06/26/24 19:03:00 EDT One Time Meds: None Active IV Meds: None Problems (16) Acute DVT (deep venous thrombosis) (0359133503) Afib (61893388) AMS (altered mental status) (4478905060) Bacteremia (50956180) CAD (coronary artery disease) of bypass graft (4710969310) Cardiogenic shock (271814476) ESRD (end stage renal disease) (9130359717) Factor V Leiden (286411115) HTN (hypertension) (9736732105) Lethargy (159606380) NSTEMI (non-ST elevated myocardial infarction) (66327767) Pseudomonas urinary tract infection (4129759415) PVD (peripheral vascular disease) (8860839605) Scrotal swelling (213711302) Septic shock (925892654) Urinary retention (870270638) ASSESSMENT/PLAN: Septic shock with altered mental status and fevers. He was transferred to [facility] due to septic shock secondary to Pseudomonas bacteremia. This is likely due to a UTI as patient has history of urinary retention and straight caths at home. He is currently on IV meropenem until July 15. Infectious disease is following. Working with PT, OT, and ST services Non-STEMI, echocardiogram was obtained and ejection fraction was 50% at that time. Also revealed mild apical hypokinesis involving basal anterior and anteroseptal her. This is currently being medically managed at this time DVT, DVT in the right subclavian. He has history of DVT as well. He was also found to have factor V Leiden. He is currently on Eliquis 5 mg twice daily. Urinary retention, currently has Machado catheter in place draining clear yellow urine. Appointment with urology 06/29 completed, no new orders. End-stage renal disease, baseline creatinine is poor ranging from 1.8-2.2. He has history of kidney transplant in 1993 and 2009. Hypertension, blood pressures are currently controlled okay on Imdur and metoprolol. Will continue to monitor. Urinary retention, Machado cath currently in place and patient on doxazosin 8 mg at bedtime. He has an upcoming appointment with urology on Saturday. CAD: Patient has history of CABG. He remains on metoprolol, Plavix, and high intensity atorvastatin 80 mg daily. PAD: History of femoral bypass. He remains on Plavix as well. GERD: Currently treated with pantoprazole 40 mg daily. COPD: Patient has as needed DuoNeb nebulizer treatments in place. Lungs remain clear. Respiratory status currently stable Hyperlipidemia: Patient remains on high intensity atorvastatin 80 mg daily. Atrial fibrillation: Currently treated with metoprolol and Eliquis. Bradycardia holding parameters on metoprolol for heart rate less than 55. Monitoring heart rates closely. Labs reviewed and stable in nature. Weekly labs due to patient being on IV antibiotics. Renal function stable, no clinical signs of worsening infection Intermittent episodes of hypoxia that increases with exertion. Currently on room air lungs remain fairly clear EKG obtained yesterday which does not show any acute ischemic changes Chronic anemia and thrombocytopenia stable on CBC Medications reviewed and up to date This document was transcribed using dictation software and may contain typographical errors. Vernon Fuentes RN, am scribing for , and in the presence of Dr. Blood. Dr. Jeremi Fuentes, personally performed the services described in this documentation, as scribed byVernon RN in my presence and it is both accurate and complete. Digitally Signed by PORSHA BLOOD DO on 07/01/2024 08:59 AM Christal Reno 06-29-2024 Note Subjective Patient states he continues with low back pain but reports the lidocaine patch has been helpful. She did report intermittent episodes of shortness of breath, denies any of these episodes yesterday. Reports that shortness of breath is relieved at rest but does increase with exertion. Denies any fevers or chills. SpO2 currently ranging 96-92% on room air. Denies any cough or congestion states breathing is comfortable. Denies any chest pain or chest pressure. Denies any nausea, vomiting, or GI upset and reports he is tolerating antibiotics without any difficulties. Objective General: Alert and oriented, no acute distress. Sitting up in wheelchair, appears,, and does not appear in acute pain. Pleasant and cooperative. Good eye contact with flat affect HEENT: No nasal drainage, EOMI, and MMM Respiratory: Lungs clear to auscultation, respirations nonlabored on room air, no cough/conversational dyspnea Cardiovascular: Heart rate is regular. No bradycardia, tachycardia, or heart murmur Edema/Varicosities of Extremities: No edema to the bilateral lower extremities. No calf tenderness Gastrointestinal: Bowel sounds are present in all four quadrants. Abdomen is nontender, soft, and nondistended Genitourinary: No CVA tenderness, suprapubic tenderness, or bladder distention VITALS [id number] (kg) 06/29 18:07----62------06/26 63.3 06/29 08:57----65------06/25 63.3 06/29 08:5036.9--[id number] 06/29 06:50----[id number] 06/29 06:1936.4--60--94RA 24 Hr Tmax: 36.9 at 06/29 08:50 36 Hr Tmax: 36.9 at 06/29 08:50 Vital Signs are the last 5 in the past 48 hours. Weights display the last 5 within 7 days. Initial Wt: 06/25 63.3 kg 139 lb Current Wt: 06/26 63.3 kg 139 lb LABS 06/29 05:55 WBC: 3.5 L Hgb: 8.7 L Hct: 27.5 L Platelet: 135 L Neutrophil %: 41.6 L Glucose Level: 84 Sodium Level: 141 Potassium Level: 4.6 BUN: 26.0 H Creatinine Lvl (s): 1.34 Medications Active Inpt Meds: apixaban (Eliquis) Start: 06/26/24 21:00:00 EDT, Dose = 5 mg, = 1 tab(s), Oral, BID, Indication for Use Persistant atrial fibrillation, 06/26/24 19:02:00 EDT atorvastatin Start: 06/26/24 22:00:00 EDT, Dose = 80 mg, = 1 tab(s), Oral, Daily, 06/26/24 19:02:00 EDT cholecalciferol (cholecalciferol 50 mcg (2000 intl units) oral tablet) Start: 06/27/24 9:00:00 EDT, Dose = 100 mcg, = 2 tab(s), Oral, Daily, 0, 06/26/24 19:02:00 EDT clopidogrel Start: 06/26/24 19:02:00 EDT, Dose = 75 mg, = 1 tab(s), Oral, qDay, 06/26/24 19:02:00 EDT darbepoetin sridevi Start: 06/29/24 9:00:00 EDT, Dose = 60 mcg, = 0.3 mL, Subcutaneous, Saturday, Indication for Use Other (please specify in ORDER COMMENTS), 0 doxazosin (doxazosin 8 mg oral tablet) Start: 06/26/24 21:00:00 EDT, Dose = 8 mg, = 1 tab(s), Oral, qHS, 06/26/24 19:03:00 EDT emollients, topical (emollients (Eucerin Cream) Cream) Start: 06/29/24 10:32:00 EDT, Dose = 1 sunshine, Topical, BID, Apply to: Legs bilaterally, Cream, 06/29/24 9:58:00 EDT gabapentin Start: 06/26/24 21:00:00 EDT, Dose = 300 mg, = 1 cap(s), Oral, BID, 06/26/24 19:03:00 EDT isosorbide mononitrate Start: 06/27/24 7:00:00 EDT, Dose = 30 mg, = 1 tab(s), Oral, qAM, Patient's Own Med, 0 lidocaine (lidocaine Patch REMOVAL) Start: 06/26/24 22:00:00 EDT, Dose = 1 EA, Misc, Miscellaneous, q24h, 0 lidocaine topical (lidocaine 4% patch) Start: 06/27/24 10:00:00 EDT, Dose = 1 patch(es), Film, Transdermal, qDay, Apply to: skin melatonin Start: 06/26/24 21:00:00 EDT, Dose = 5 mg, = 1 tab(s), Oral, qHS, 06/26/24 19:03:00 EDT meropenem (Merrem) Start: 06/27/24 9:00:00 EDT, Dose = 2 gram(s), IV Piggyback, q12h, Stop: 07/15/24 22:00:00 EDT, Rate: 33.33 mL/hr, Infuse over: 3 hour(s), 0 metoprolol (Metoprolol Tartrate 25 mg oral tablet) Start: 06/26/24 19:03:00 EDT, Dose = 25 mg, = 1 tab(s), Oral, BID, Hold if HR (bpm) < 55, 0, 06/26/24 19:03:00 EDT pantoprazole (Protonix) Start: 06/27/24 7:00:00 EDT, Dose = 40 mg, = 1 tab(s), Oral, qDay, 0, 06/26/24 19:03:00 EDT predniSONE Start: 06/26/24 19:03:00 EDT, Dose = 5 mg, = 1 tab(s), Oral, qDay, 0, 06/26/24 19:03:00 EDT tacrolimus (tacrolimus 0.5 mg oral capsule) Start: 06/27/24 9:00:00 EDT, Dose = 1.5 mg, = 3 cap(s), Oral, qAM, 0, 06/26/24 20:47:00 EDT Active PRN Meds: Al hydroxide/Mg hydroxide/simethicone (Maalox) Start: 06/26/24 18:57:00 EDT, Dose = 30 mL, Susp, Oral, q6h, PRN, Indigestion, 06/26/24 18:57:00 EDT acetaminophen (Tylenol) Start: 06/26/24:57:00 EDT, Dose = 650 mg, = 2 tab(s), Oral, q4h, PRN, Muscle pain, 06/26/24:57:00 EDT albuterol-ipratropium (DuoNeb 0.5 mg - 2.5 mg/3 mL inhalation soln) Start: 06/26/24 20:31:00 EDT, Dose = 3 mL, Soln, Inhalation, QIDRT, PRN, as needed for shortness of breath or wheezing, 0, 06/26/24 20:23:00 EDT docusate (Colace) Start: 06/26/24:57:00 EDT, Dose = 100 mg, = 1 cap(s), Oral, BID, PRN, Constipation, 06/26/24:57:00 EDT glucagon (GlucaGen) Start: 06/26/24:57:00 EDT, Dose = 1 mg, = 1 mL, Intramuscular, AsDirected, PRN, Hypoglycemia, if unresponsive, NO IV ACCESS & blood glucose less than 70mg/dL. If still unresponsive after 2 minutes, REPEAT x1., 06/26/24:57:00 EDT glucose (Dextrose 50% IV Push) Start: 06/26/24:57:00 EDT, Dose = 12.5 gram(s), = 25 mL, IV Push, AsDirected, PRN, Hypoglycemia, if unresponsive WITH IV ACCESS & blood glucose less than 70mg/dL. If still unresponsive after 2 minutes, REPEAT x1., 06/26/24:57:00 EDT glucose Start: 06/26/24:57:00 EDT, Dose = 16 gram(s), = 4 tab(s), Chewed, AsDirected, PRN, Hypoglycemia, DIABETIC PATIENT if responsive & blood glucose less than 70mg/dL. If blood glucose less than 70mg/dL after 15 minutes, REPEAT x1., 0, 06/26/24 18:5... glycerin (glycerin adult rectal suppository) Start: 06/26/24 1857:00 EDT, Dose = 1 supp, Supp, Rectal, Daily, PRN, Constipation, 06/26/24 18:57:00 EDT magnesium hydroxide (Milk of Magnesia) Start: 06/26/24 18:57:00 EDT, Dose = 30 mL, Susp-Oral, Oral, qDay, PRN, Constipation, 06/26/24 18:57:00 EDT polyethylene glycol 3350 (Miralax Powder Packet) Start: 06/26/24 18:57:00 EDT, Dose = 17 gram(s), = 15 mL, Oral, qDay, PRN, Constipation, 06/26/24 18:57:00 EDT traMADol Start: 06/26/24 19:03:00 EDT, Dose = 50 mg, = 1 tab(s), Oral, q12h, PRN, Pain, 0, 06/26/24 19:03:00 EDT One Time Meds: (Deleted) iron sucrose Start: 06/28/24 14:30:00 EDT, Dose = 200 mg, IV Push, Once, Stop: 06/28/24 14:30:00 EDT, Infuse over: 1 hour(s), * For > than 1 dose- change to qDay + add duration. Max 5 doses (200 mg) /course of treatment Maximum individual dose = 300 mg, 06/28... Active IV Meds: None Problems (16) Acute DVT (deep venous thrombosis) (2969710490) Afib (11736648) AMS (altered mental status) (9878487084) Bacteremia (11768403) CAD (coronary artery disease) of bypass graft (6403605672) Cardiogenic shock (263353888) ESRD (end stage renal disease) (6131567869) Factor V Leiden (842887344) HTN (hypertension) (9655395405) Lethargy (135950642) NSTEMI (non-ST elevated myocardial infarction) (60089600) Pseudomonas urinary tract infection (7068880590) PVD (peripheral vascular disease) (1662224396) Scrotal swelling (466632869) Septic shock (899426806) Urinary retention (792367129) ASSESSMENT/PLAN: Septic shock with altered mental status and fevers. He was transferred to [facility] due to septic shock secondary to Pseudomonas bacteremia. This is likely due to a UTI as patient has history of urinary retention and straight caths at home. He is currently on IV meropenem until July 15. Infectious disease is following. Working with PT, OT, and ST services Non-STEMI, echocardiogram was obtained and ejection fraction was 50% at that time. Also revealed mild apical hypokinesis involving basal anterior and anteroseptal her. This is currently being medically managed at this time DVT, DVT in the right subclavian. He has history of DVT as well. He was also found to have factor V Leiden. He is currently on Eliquis 5 mg twice daily. Urinary retention, currently has Machado catheter in place draining clear yellow urine. He has an appointment with urology this Saturday. Denies any symptoms of UTI at this point. End-stage renal disease, baseline creatinine is poor ranging from 1.8-2.2. He has history of kidney transplant in 1993 and 2009. Labs are pending for today. Hypertension, blood pressures are currently controlled okay on Imdur and metoprolol. Will continue to monitor. Urinary retention, Machado cath currently in place and patient on doxazosin 8 mg at bedtime. He has an upcoming appointment with urology on Saturday. CAD: Patient has history of CABG. He remains on metoprolol, Plavix, and high intensity atorvastatin 80 mg daily. PAD: History of femoral bypass. He remains on Plavix as well. GERD: Currently treated with pantoprazole 40 mg daily. Denies any GI upset COPD: Patient has as needed DuoNeb nebulizer treatments in place. Lungs remain clear. Respiratory status currently stable Hyperlipidemia: Patient remains on high intensity atorvastatin 80 mg daily. Atrial fibrillation: Currently treated with metoprolol and Eliquis. Bradycardia holding parameters on metoprolol for heart rate less than 55. Monitoring heart rates closely. Denies any chest pain or chest pressure Discontinue capsicin and miconazole per patient request Labs reviewed and stable in nature. Weekly labs due to patient being on IV antibiotics. Intermittent episodes of hypoxia that increases with exertion. No episodes reported this morning, low threshold for repeat chest x-ray. Breathing company this morning on room air Medications reviewed and up to date This document was transcribed using dictation software and may contain typographical errors. Fernandez Fuentes RN, am scribing for, and in the presence of Lavell Da Silva APRN. I, Lavell Da Silva APRN, personally performed the services described in this documentation, as scribed by, Fernandez Soto RN in my presence and it is both accurate and complete. Digitally Signed by HELEN DA SILVA on 06/29/2024 09:25 PM [facility] 06-29-2024 Note Sinus rhythm Supraventricular bigeminy RBBB and LAFB Electronic Signature: ARTHUR SALAS MD 06/30/2024 20:42:20 [facility] 06-27-2024 Evaluation + Plan note Extrac wayne from: Title:Clinical Document Author:FARZANA DAVIS Date:06/27/24 Acute Inpatient Rehab History and Physical Date of Service: 06/27/2024 Date of Admission: 06/26/2024 Attending Physician: Dr. Davis [employer] 16 Etiologic Diagnosis Debility History of Present Illness This is a 54-year-old admitted to [place] inpatient rehab unit from [facility] stay 06/14 - 06/26 with a history of ESRD, hypertension, CAD status post CABG, PAD status post fem bypass, GERD, COPD, hyperlipidemia, kidney transplant 1993 and 2009, A-fib, factor X. Patient presented to the ER due to increased confusion, fever of 101.3 diagnosed with septic shock, Pseudomonas and likely from UTI. IV Mevrem was initiated and will continue until 07/15. Patient also was diagnosed with NSTEMI, MIRNA; EF 50%. Mild hypokinesis involving basal anterior and inferoseptal her consistent with prior OR. Positive for DVT in the right subclavian and previous DVT in right CFV patient is on Eliquis. Patient has urinary retention and was straight cathing at home. Patient has Machado in at this time. And has urology appointment on Friday 06/29. Patient states is to take. Patient was deemed medically stable and transferred to [place] inpatient rehab unit for physical and Occupational Therapy as well as medical supervision. Today patient states overall he is doing fairly well he denies any uncontrolled pain or discomfort at this time. Patient has left chest port dressing clean dry and intact. Patient states he is breathing comfortably and denies any shortness of breath lightheadedness or dizziness. Patient reports bowel and bladder is moving appropriately. Patient denies any urinary burning abdominal pain or discomfort. Machado cath is intact draining yellow urine. CBC and BMP are pending, hospital medications labs and diagnoses were reviewed and reconciled. Due to the fact that he had impairments in gait mobility ADLs and self-care as well as medical comorbidities, decision was made to admit him to acute physical rehabilitation unit. Baseline functional status modified independent. Current functional status moderate assist. Medications (30) Active Scheduled: (19) apixaban 5 mg tablet 5 mg 1 tab(s), Oral, BID atorvastatin 80 mg tablet 80 mg 1 tab(s), Oral, Daily capsaicin topical 0.025% Cre 60 g tube 1 sunshine, Topical, BID cholecalciferol 50 mcg tablet (Vit D3 2000 unit(s)) 100 mcg 2 tab(s), Oral, Daily clopidogrel 75 mg Tablet 75 mg 1 tab(s), Oral, qDay darbepoetin sridevi 60 mcg/0.3 mL Syringe 60 mcg 0.3 mL, Subcutaneous, Saturday doxazosin 8 mg Tablet 8 mg 1 tab(s), Oral, qHS gabapentin 300 mg Capsule 300 mg 1 cap(s), Oral, BID isosorbide mononitrate 20 mg Tablet 60 mg 3 tab(s), Oral, qAM lidocaine patch REMOVAL 1 EA, Miscellaneous, q24h lidocaine topical 4% patch 1 patch(es), Transdermal, qDay melatonin 5 mg tablet 5 mg 1 tab(s), Oral, qHS meropenem 500 mg, IV Piggyback, q12h metoprolol tartrate 25 mg tablet 25 mg 1 tab(s), Oral, BID miconazole topical 2% Powder 1 sunshine, Topical, BID pantoprazole 40 mg EC tablet 40 mg 1 tab(s), Oral, qDay predniSONE 5 mg tablet 5 mg 1 tab(s), Oral, qDay sodium ferric gluconate complex 125 mg 10 mL, IV Piggyback, Daily tacrolimus 0.5 mg capsule 1.5 mg 3 cap(s), Oral, qAM Continuous: (0) PRN: (11) acetaminophen 325 mg Tablet 650 mg 2 tab(s), Oral, q4h Al hydrox/Mg hydrox/simethicone 200-200-20 mg/5 mL Susp UD 30 mL, Oral, q6h albuterol - ipratropium 2.5 mg-0.5 mg/3 mL Inhal Shirley UD 3 mL, Inhalation, QIDRT dextrose 50% Solution Disp syringe 50 mL 12.5 gram(s) 25 mL, IV Push, AsDirected docusate sodium 100 mg Capsule 100 mg 1 cap(s), Oral, BID glucagon recombinant 1 mg 1 mg 1 mL, Intramuscular, AsDirected glucose 4 gm Chewable 16 gram(s) 4 tab(s), Chewed, AsDirected glycerin adult Suppository 1 supp, Rectal, Daily magnesium hydroxide 8% Suspension 30 mL UD 30 mL, Oral, qDay polyethylene glycol 3350 - UD packet 17 gram(s) 15 mL, Oral, qDay tramadol 50 mg Tablet 50 mg 1 tab(s), Oral, q12h Review of Systems Constitutional: Denies weight changes fever or chills. Denies headaches. HEENT: Denies nystagmus and dizziness. Respiratory: Denies cough or congestion Cardiovascular: Denies chest pain, palpitations, uncontrolled blood pressure Gastrointestinal: Denies nausea with emesis. Genitourinary: Denies dysuria or urinary retention, cath intact draining yellow urine. Neurological: Denies any cognitive deficits Musculoskeletal: Denies any joint or musculoskeletal pain Skin: Thin and dry. Left chest port dressing clean dry and intact Endocrine: Denies hot or cold intolerance. No hypoglycemia. Psychiatric: Denies changes in mental status. Allergic/immunologic: Denies environmental allergies or immune dysfunction Past Medical History: ESRD Hypertension CAD s/p CABG PAD s/p Fem bypass GERD COPD Hyperlipidemia Status post kidney transplant 1993, 2009 A-fib Factor X Procedure/Surgical History: CABG Fen bypass Kidney transplant 1993, 2009 Social History: Alcohol Details: Frequency: Denies Home/Environment Details: Domestic Concerns: None. Living situation: Lives multilevel home, first-floor set up. Primary Assistant Property Manager: Self. Safe place to go: Yes. Lives In: Multi level home, 1st floor bedroom, 1st floor bathroom. Current Home Treatments None. Professional Skilled Services or Special Community Resources None. Financial concerns: No. Nutrition/Health Details: Appetite Good. Sexual Details: Sexually active: No Substance Abuse Details: Type: Denies Tobacco Details: Nicotine Use: Denies Family History: Unable to obtain Allergies: Bee stings Propoxyphene Physical Exam General appearance: Alert orient x3, no apparent distress, appears comfortable lying in bed watching TV Head: Normocephalic no evidence of trauma EENT: Pupils equal and reactive to light and accommodation, no erythema. Ears with no external lesions or discharge. Nose clear, nares patent, no discharge. Throat normal healthy definition, no redness or erythema. Neck: Trachea midline. No lymphatic adenopathy Cardiac: Regular rate and rhythm, no rubs or murmurs Lungs: Clear to auscultation respirations nonlabored Abdomen: Soft, nontender, no organomegaly or rebound tenderness. Positive bowel sounds Musculoskeletal: Intact range of motion, no erythema, mild polyarthritis Extremities: Trace edema bilateral lower extremities. No calf tenderness. Neurological: Cranial nerves intact. No nystagmus noted. 5/5 bilateral upper extremity strength. 5/5 left lower extremity strength. 2+/5 right lower extremity strength. Normal hand grasp bilaterally. Normal shoulder range of motion bilaterally. 1/4 bilateral upper extremity reflexes. 1/4 bilateral lower extremity reflexes. Skin: Intact, thin and dry. Left chest port dressing clean dry and intact Psychiatric: Mood good. No anxiety or depression Vitals Signs(Last 24 hrs)__Last Charted Minimum Maximum Temp36.6(SEP 20 18:04)36.6(SEP 20 18:04)36.6(SEP 20 18:04) FTA036(SEP 20 18:04)118(SEP 20 18:04)118(SEP 20 18:04) DBP72(SEP 20 18:04)72(SEP 20 18:04)72(SEP 20 18:04) No 36hr Lab Data Assessment/Plan Assessment: Debility status post septic shock. Medical committees of Pseudomonas bacteremia with urinary tract infection and subsequent non-ST elevation myocardial infarction with hypokinesis of heart. DVT right subclavian. Chronic urine retention. History of end-stage renal disease and kidney transplant. Hypertension coronary disease and history of CABG peripheral vascular disease GERD COPD hyperlipidemia atrial fibrillation and factor V Leiden deficiency Plan: Acute rehabilitation physical and occupational therapy services. Gait and mobility. ADL self-care strengthening. Plan resume straight cath protocol. Antirejection medications. Urology follow-up. Wound team to evaluate. Team staffing Saturday regarding further goals plan of care and length of stay Condition Medically complex but medically stable Post Admission Physician Evaluation Medical reconciliation performed. Old chart reviewed. Patient status on admission to rehab is medically stable but medically complex. Appropriate for admission to inpatient rehab facility due to need for 24-hour nursing and medical management in a hospital-based setting. Comparison with information on preadmission screening findings information to be consistent. Diagnoses to be monitored and treated include: Rehabilitation physician to direct team staffing. See daily on rehabilitation rounds. Plan is for acute rehab with PT OT and speech-language therapy rehab nursing social work and nutrition for an acute interdisciplinary team rehab approach. Will work on gait training, ADLs, self-care, and strengthening, bowel and bladder program. DVT prophylaxis and medical management of comorbidities Minimal 3 hours/day 5-6 days/week of rehabilitation services Goal is for discharge home at a modified independent level for all gait mobility ADLs and self-care skills, skin intact, medically stable, optimal cardiopulmonary status, free of infection, continent of bowel bladder, adequate pain management and comfort, complete discharge disposition home set up patient and family training. Medical Comorbidities at the Time of Admission ESRD Hypertension CAD s/p CABG PAD s/p Fem bypass GERD COPD Hyperlipidemia Status post kidney transplant 1993, 2009 A-fib Factor X Barriers to Discharge Functional medical impairments Consulting Physician Dr. Blood Estimated Length of Stay 2-3 weeks Medications reviewed and are up to date IJanee LPN am scribing for , and in the presence of Dr. Murray PERSON. IDr. Murray DO, personally performed the services described in this documentation, as scribed by,Janee Li LPN in my presence and it is both accurate and complete. [facility] 09-21-2024 Physical medicine and rehab Consult note INPATIENT REHAB MEDICAL CONSULT DATE OF ADMISSION: 06/26/2024 CC: Septic shock HISTORY OF PRESENT ILLNESS: 54-year-old male, past medical history significant for end-stage renal disease with reflux nephropathy, CAD, PAD, GERD, COPD, hyperlipidemia, atrial fibrillation, factor V Leiden. Of note, patient underwent left heart catheterization in May which demonstrated CHILD CAREGIVER of left main, subtotal RCA. PCI was attempted on 05/29 but aborted after unsuccessful antegrade wire escalation. Patient was seen by cardiovascular team for medical management at that time. He was also noted to have an [place], but creatinine showed signs of plateau. He was discharged home with a creatinine of 2.4. Recent hospitalization at [facility] from 06/13 - 06/14 with transfer to [facility] on 06/14 - 06/26. Patient presented to the emergency department secondary to fever of 101.3 as well as confusion and shortness of breath. Blood pressure at [place] was in the 70s systolic. Urinalysis obtained that was suggestive of a UTI. Troponin was elevated at 39,926, BUN 43, creatinine 3.3, EKG with sinus rhythm and nonspecific ST changes. QTc 474 with left axis deviation, right bundle branch block, left anterior fascicular block. Patient was given fluids and started on empirical antibiotics. Right IJ central line was attempted but unsuccessful, causing hematoma. Patient was then transferred to [facility] for further management. Patient diagnosed with NSTEMI type I with history of significant CAD. Quadruple bypass in 2005. TTEdemonstrated ejection fraction of 56%, new wall motion abnormality. Cardiac MRI showed dilated leftventricle, mild hypokinesis involving the basal inferior and inferoseptal her, consistent with prior infarction. Cardiology followed, will continue with medical management at this time. Venous Doppler at [place] showed acute DVT in right subclavian, acute DVT in right common femoral vein during previous admission. Also recently diagnosed with factor V Leiden. Recommend to continue on Eliquis. End-stage renal disease with reflex neuropathy. DDKT 1993, 2009. Patient is straight caths at home.Was on hemodialysis in the past, 2009. Baseline creatinine 1.8 2.2. Creatinine on admission was 3.5. Did improve at discharge to 1.3. Patient was due to establish care with Dr. Jones from urology but was hospitalized. During stay, did require insertion of coud Machado catheter by urology. Urology felt patient was okay to be discharged with Machado catheter and follow-up as an outpatient. Transplant nephrology team was following during hospitalization. Home mycophenolate on hold given active infection. Was found to have iron deficiency anemia iron 24, TIBC 165, ferritin 866, percent sat 15. R ecommended to receive IV Venofer for total 5 days. Diagnosed with Pseudomonas bacteremia, likely from UTI. Patient was seen by infectious disease, recommended IV meropenem 2 g every 12 hours for Pseudomonas Aeruginosa through 07/15/24. PICC was inserted prior to discharge. NICO Tatum. Patient had been complaining of back pain during stay. Pain was not relieved with lidocaine patches. Was initiated on tramadol 50 mg every 12 hours as needed for pain management. Patient was deemed medically stable and transferred to [place] inpatient rehab unit for physical and occupational therapy as well as medical supervision. Today, patient is sitting up in his bedside chair, eating breakfast. Pleasant cooperative with no signs of agitation or distress. States he is having some mild back pain, but feels comfortable. Continues with Machado catheter in place. Patient reports he was post have urology appointment on 06/29, does plan on going to this on Saturday. States he has straight catheterization supplies at home, but is running out. Does report he would like to keep the Machado catheter in place to limit risk of urinary tract infections at this time. Denies any chest pain or palpitations. He is breathing comfortably on room air today. Oxygen saturations 94-90%. Bowels moving without any endorsement of constipation or diarrhea. Denies any dizziness or lightheadedness. No reported vision changes. Most recent lab work reviewed, WBC 3.4, hemoglobin 8.1, platelet 116, creatinine 1.14, BUN 33, tacrolimus 5, sodium 141, potassium 3.5, chloride 98, CO2 36, calcium 9.6, phosphorus 1.6, albumin 2.9. Medications, labs, anddiagnostics reviewed and reconciled. Lab work pending for today PAST MEDICAL HISTORY: End-stage renal disease Hypertension CAD PAD GERD COPD Hyperlipidemia Atrial fibrillation Factor V Leiden PAST SURGICAL HISTORY: Cardiac catheterization Kidney transplant, 2009 CABG Femoral femoral bypass SOCIAL HISTORY: Tobacco Details: Nicotine Use: Former smoker, quit more than 30 days ago. Denies alcohol or substance abuse. FAMILY HISTORY: Sister factor V Leiden No PCP listed BMI: 20.6 CODE STATUS: Code Status - Ordered -- 06/26/24 18:57:00 EDT, Full Code, Constant Order Vitals Signs(Last 24 hrs)__Last Charted Minimum Maximum Temp36.4(JUN 27 06:20)36.4(JUN 27 06:20)36.6(SEP 20 18:04) QPH955(SEP 20 18:04)118(SEP 20 18:04)118(SEP 20 18:04) DBP72(SEP 20 18:04)72(SEP 20 18:04)72(SEP 20 18:04) REVIEW OF SYSTEMS: General: The patient appears frail and debilitated requiring assistance with activities of daily living including mobility. Constitutional: Appetite is at baseline. No fever. No chills. HEENT: Eyes: No blurring, discharge, or pain. ENT: No congestion, discharge or epistaxis. Respiratory: No cough, no dyspnea. No hemoptysis. Cardiovascular: No chest pain. No claudication. No paroxysmal nocturnal dyspnea. Gastrointestinal: No constipation, diarrhea, nausea, vomiting or abdominal pain. No dysphagia. Genitourinary: No dysuria, frequency or urgency. Neurological: No new focal weakness. No seizure or tremor. Musculoskeletal: Endorses back pain. Endocrine: No hot or cold intolerance. No hypoglycemia. Mental Status: No changes in mental status. PHYSICAL EXAMINATION: HEENT: Eyes: Extraocular motions are intact. No nystagmus. ENT: No exudate on tongue or pharynx. Norhinorrhea. Neck: Neck is symmetric without mass, tenderness or rigidity. Trachea is midline. Pulmonary: Breath sounds are clear. Chest is symmetric with normal expansion. Respirations are nonlabored. Cardiovascular: HRRR, no MRG, no JVD Peripheral Vascular: No calf pain or tenderness. No cyanosis or clubbing of digits. Trace edema to BLE. Gastrointestinal: Abdomen soft without masses, distention or tenderness. Bowel sounds are positive x4. Genitourinary: No suprapubic tenderness. No bladder distention. Machado catheter in place draining clear yellow urine. Musculoskeletal: Exam shows no misalignment, tenderness or effusion. Motor strength and tone are symmetric. Lymph: No enlargement or tenderness in neck or groin. Skin: No rash, tears or wounds. Neurologic: Cranial nerves II through XII are grossly intact. No new focal deficits. Balance and coordination are being evaluated by pt/ot Medications (30) Active Scheduled: (19) apixaban 5 mg tablet 5 mg 1 tab(s), Oral, BID atorvastatin 80 mg tablet 80 mg 1 tab(s), Oral, Daily capsaicin topical 0.025% Cre 60 g tube 1 sunshine, Topical, BID cholecalciferol 50 mcg tablet (Vit D3 2000 unit(s)) 100 mcg 2 tab(s), Oral, Daily clopidogrel 75 mg Tablet 75 mg 1 tab(s), Oral, qDay darbepoetin sridevi 60 mcg/0.3 mL Syringe 60 mcg 0.3 mL, Subcutaneous, Saturday doxazosin 8 mg Tablet 8 mg 1 tab(s), Oral, qHS gabapentin 300 mg Capsule 300 mg 1 cap(s), Oral, BID isosorbide mononitrate 20 mg Tablet 60 mg 3 tab(s), Oral, qAM lidocaine patch REMOVAL 1 EA, Miscellaneous, q24h lidocaine topical 4% patch 1 patch(es), Transdermal, qDay melatonin 5 mg tablet 5 mg 1 tab(s), Oral, qHS meropenem 500 mg, IV Piggyback, q12h metoprolol tartrate 25 mg tablet 25 mg 1 tab(s), Oral, BID miconazole topical 2% Powder 1 sunshine, Topical, BID pantoprazole 40 mg EC tablet 40 mg 1 tab(s), Oral, qDay predniSONE 5 mg tablet 5 mg 1 tab(s), Oral, qDay sodium ferric gluconate complex 125 mg 10 mL, IV Piggyback, Daily tacrolimus 0.5 mg capsule 1.5 mg 3 cap(s), Oral, qAM Continuous: (0) PRN: (11) acetaminophen 325 mg Tablet 650 mg 2 tab(s), Oral, q4h Al hydrox/Mg hydrox/simethicone 200-200-20 mg/5 mL Susp UD 30 mL, Oral, q6h albuterol - ipratropium 2.5 mg-0.5 mg/3 mL Inhal Shirley UD 3 mL, Inhalation, QIDRT dextrose 50% Solution Disp syringe 50 mL 12.5 gram(s) 25 mL, IV Push, AsDirected docusate sodium 100 mg Capsule 100 mg 1 cap(s), Oral, BID glucagon recombinant 1 mg 1 mg 1 mL, Intramuscular, AsDirected glucose 4 gm Chewable 16 gram(s) 4 tab(s), Chewed, AsDirected glycerin adult Suppository 1 supp, Rectal, Daily magnesium hydroxide 8% Suspension 30 mL UD 30 mL, Oral, qDay polyethylene glycol 3350 - UD packet 17 gram(s) 15 mL, Oral, qDay tramadol 50 mg Tablet 50 mg 1 tab(s), Oral, q12h REVIEW OF LABS, DIAGNOSTICS Hospital labs and diagnostics reviewed. No 36hr Lab Data ASSESSMENT AND PLAN: actively managed medical problems include Septic shock: Patient initially presented to [facility] for increasing confusion with fever of 101.3. He was transferred to [facility] due to septic shock secondary to Pseudomonas bacteremia. This is likely due to a UTI as patient has history of urinary retention and straight caths at home. He is currently on IV meropenem until July 15. Infectious disease is following. He currently denies any fever, chills, dyspnea, or increasing fatigue. He appears well upon exam today and is up to chair eating breakfast. Will continue to monitor his situation very closely. Non-STEMI: Patient was found to have a non-STEMI while inpatient. An echocardiogram was obtained and ejection fraction was 50% at that time. Also revealed mild apical hypokinesis involving basal anterior and anteroseptal her. This is currently being medically managed at this time.. DVT: Patient was also found to have a DVT in the right subclavian. He has history of DVT as well. He was also found to have factor V Leiden. He is currently on Eliquis 5 mg twice daily. Urinary retention: Patient currently has Machado catheter in place draining clear yellow urine. He has an appointment with urology this Saturday. Denies any symptoms of UTI at this point. End-stage renal disease: Baseline creatinine is poor ranging from 1.8-2.2. He has history of kidneytransplant in 1993 and 2009. Labs are pending for today. Hypertension: Blood pressures are currently controlled okay on Imdur and metoprolol. Will continue to monitor. Urinary retention: Machado cath currently in place and patient on doxazosin 8 mg at bedtime. He has an upcoming appointment with urology on Saturday. CAD: Patient has history of CABG. He remains on metoprolol, Plavix, and high intensity [id number] mg daily. PAD: History of femoral bypass. He remains on Plavix as well. GERD: Currently treated with pantoprazole 40 mg daily. COPD: Patient has as needed DuoNeb nebulizer treatments in place. He denies any dyspnea or wheezingtoday. Lungs are clear throughout. Hyperlipidemia: Patient remains on high intensity atorvastatin 80 mg daily. Atrial fibrillation: Currently treated with metoprolol and Eliquis. ORDERS- PT/OT Discussion and summaries: Reviewed with nursing staff. Our group will follow during acute rehabilitation stay at [facility] with the goal of returning to a more independentliving status at the conclusion of the stay. This document was transcribed using dictation software and may contain typographical errors. Drake Fuentes RN, am scribing for, and in the presence of Hayley Kumar APRN/HERON. Hayley Fuentes APRN/HERON, personally performed the services described in this documentation, as scribed byDrake RN in my presence and it is both accurate and complete. Digitally Signed by WILLIS KUMAR on 06/27/2024 05:17 PM [id number] and rehab History and physical note Acute Inpatient Rehab History and Physical Date of Service: 06/27/2024 Date of Admission: 06/26/2024 Attending Physician: Dr. Davis [facility] 16 Etiologic Diagnosis Debility History of Present Illness This is a 54-year-old admitted to [place] inpatient rehab unit from [facility] stay 06/14 - 06/26 with a history of ESRD, hypertension, CAD status post CABG, PAD status post fem bypass, GERD, COPD, hyperlipidemia, kidney transplant 1993 and 2009, A-fib, factor X. Patient presented to the ER due to increased confusion, fever of 101.3 diagnosed with septic shock, Pseudomonas and likely from UTI. IV Mevrem was initiated and will continue until 07/15. Patient also was diagnosed with NSTEMI, MIRNA; EF 50%. Mild hypokinesis involving basal anterior and inferoseptal her consistent with prior OR. Positive for DVT in the right subclavian and previous DVT in right CFV patient is on Eliquis. Patient has urinary retention and was straight cathing at home. Patient has Machado in at this time. And has urology appointment on Friday 06/29. Patient states is to take. Patient was deemed medically stable and transferred to [place] inpatient rehab unit for physical and Occupational Therapy as wellas medical supervision. Today patient states overall he is doing fairly well he denies any uncontrolled pain or discomfort at this time. Patient has left chest port dressing clean dry and intact. Patient states he is breathing comfortably and denies any shortness of breath lightheadedness or dizziness. Patient reports bowel and bladder is moving appropriately. Patient denies any urinary burning abdominal pain or discomfort. Machado cath is intact draining yellow urine. CBC and BMP are pending, hospital medications labs and diagnoses were reviewed and reconciled. Due to the fact that he had impairments in gait mobility ADLs and self-care as well as medical comorbidities, decision was made to admit him to acute physical rehabilitation unit. Baseline functional status modified independent. Current functional status moderate assist. Medications (30) Active Scheduled: (19) apixaban 5 mg tablet 5 mg 1 tab(s), Oral, BID atorvastatin 80 mg tablet 80 mg 1 tab(s), Oral, Daily capsaicin topical 0.025% Cre 60 g tube 1 sunshine, Topical, BID cholecalciferol 50 mcg tablet (Vit D3 2000 unit(s)) 100 mcg 2 tab(s), Oral, Daily clopidogrel 75 mg Tablet 75 mg 1 tab(s), Oral, qDay darbepoetin sridevi 60 mcg/0.3 mL Syringe 60 mcg 0.3 mL, Subcutaneous, Saturday doxazosin 8 mg Tablet 8 mg 1 tab(s), Oral, qHS gabapentin 300 mg Capsule 300 mg 1 cap(s), Oral, BID isosorbide mononitrate 20 mg Tablet 60 mg 3 tab(s), Oral, qAM lidocaine patch REMOVAL 1 EA, Miscellaneous, q24h lidocaine topical 4% patch 1 patch(es), Transdermal, qDay melatonin 5 mg tablet 5 mg 1 tab(s), Oral, qHS meropenem 500 mg, IV Piggyback, q12h metoprolol tartrate 25 mg tablet 25 mg 1 tab(s), Oral, BID miconazole topical 2% Powder 1 sunshine, Topical, BID pantoprazole 40 mg EC tablet 40 mg 1 tab(s), Oral, qDay predniSONE 5 mg tablet 5 mg 1 tab(s), Oral, qDay sodium ferric gluconate complex 125 mg 10 mL, IV Piggyback, Daily tacrolimus 0.5 mg capsule 1.5 mg 3 cap(s), Oral, qAM Continuous: (0) PRN: (11) acetaminophen 325 mg Tablet 650 mg 2 tab(s), Oral, q4h Al hydrox/Mg hydrox/simethicone 200-200-20 mg/5 mL Susp UD 30 mL, Oral, q6h albuterol - ipratropium 2.5 mg-0.5 mg/3 mL Inhal Shirley UD 3 mL, Inhalation, QIDRT dextrose 50% Solution Disp syringe 50 mL 12.5 gram(s) 25 mL, IV Push, AsDirected docusate sodium 100 mg Capsule 100 mg 1 cap(s), Oral, BID glucagon recombinant 1 mg 1 mg 1 mL, Intramuscular, AsDirected glucose 4 gm Chewable 16 gram(s) 4 tab(s), Chewed, AsDirected glycerin adult Suppository 1 supp, Rectal, Daily magnesium hydroxide 8% Suspension 30 mL UD 30 mL, Oral, qDay polyethylene glycol 3350 - UD packet 17 gram(s) 15 mL, Oral, qDay tramadol 50 mg Tablet 50 mg 1 tab(s), Oral, q12h Review of Systems Constitutional: Denies weight changes fever or chills. Denies headaches. HEENT: Denies nystagmus and dizziness. Respiratory: Denies cough or congestion Cardiovascular: Denies chest pain, palpitations, uncontrolled blood pressure Gastrointestinal: Denies nausea with emesis. Genitourinary: Denies dysuria or urinary retention, cath intact draining yellow urine. Neurological: Denies any cognitive deficits Musculoskeletal: Denies any joint or musculoskeletal pain Skin: Thin and dry. Left chest port dressing clean dry and intact Endocrine: Denies hot or cold intolerance. No hypoglycemia. Psychiatric: Denies changes in mental status. Allergic/immunologic: Denies environmental allergies or immune dysfunction Past Medical History: ESRD Hypertension CAD s/p CABG PAD s/p Fem bypass GERD COPD Hyperlipidemia Status post kidney transplant 1993, 2009 A-fib Factor X Procedure/Surgical History: CABG Fen bypass Kidney transplant 1993, 2009 Social History: Alcohol Details: Frequency: Denies Home/Environment Details: Domestic Concerns: None. Living situation: Lives multilevel home, first-floor set up. Primary Assistant Property Manager: Self. Safe place to go: Yes. Lives In: Multi level home, 1st floor bedroom, 1st floor bathroom. Current Home Treatments None. Professional Skilled Services or Special Community Resources None. Financial concerns: No. Nutrition/Health Details: Appetite Good. Sexual Details: Sexually active: No Substance Abuse Details: Type: Denies Tobacco Details: Nicotine Use: Denies Family History: Unable to obtain Allergies: Bee stings Propoxyphene Physical Exam General appearance: Alert orient x3, no apparent distress, appears comfortable lying in bed watching TV Head: Normocephalic no evidence of trauma EENT: Pupils equal and reactive to light and accommodation, no erythema. Ears with no external lesions or discharge. Nose clear, nares patent, no discharge. Throat normal healthy definition, no redness or erythema. Neck: Trachea midline. No lymphatic adenopathy Cardiac: Regular rate and rhythm, no rubs or murmurs Lungs: Clear to auscultation respirations nonlabored Abdomen: Soft, nontender, no organomegaly or rebound tenderness. Positive bowel sounds Musculoskeletal: Intact range of motion, no erythema, mild polyarthritis Extremities: Trace edema bilateral lower extremities. No calf tenderness. Neurological: Cranial nerves intact. No nystagmus noted. 5/5 bilateral upper extremity strength. 5/5 left lower extremity strength. 2+/5 right lower extremity strength. Normal hand grasp bilaterally.Normal shoulder range of motion bilaterally. 1/4 bilateral upper extremity reflexes. 1/4 bilateral lower extremity reflexes. Skin: Intact, thin and dry. Left chest port dressing clean dry and intact Psychiatric: Mood good. No anxiety or depression Vitals Signs(Last 24 hrs)__Last Charted Minimum Maximum Temp36.6(SEP 20 18:04)36.6(SEP 20 18:04)36.6(SEP 20 18:04) HKQ467(SEP 20 18:04)118(SEP 20 18:04)118(SEP 20 18:04) DBP72(SEP 20 18:04)72(SEP 20 18:04)72(SEP 20 18:04) No 36hr Lab Data Assessment/Plan Assessment: Debility status post septic shock. Medical committees of Pseudomonas bacteremia with urinary tract infection and subsequent non-ST elevation myocardial infarction with hypokinesis of heart. DVT right subclavian. Chronic urine retention. History of end-stage renal disease and kidney transplant. Hypertension coronary disease and history of CABG peripheral vascular disease GERD COPD hyperlipidemia atrial fibrillation and factor V Leiden deficiency Plan: Acute rehabilitation physical and occupational therapy services. Gait and mobility. ADL self-care strengthening. Plan resume straight cath protocol. Antirejection medications. Urology follow-up. Wound team to evaluate. Team staffing Saturday regarding further goals plan of care and length of stay Condition Medically complex but medically stable Post Admission Physician Evaluation Medical reconciliation performed. Old chart reviewed. Patient status on admission to rehab is medically stable but medically complex. Appropriate for admission to inpatient rehab facility due to need for 24-hour nursing and medical management in a hospital-based setting. Comparison with information on preadmission screening findings information to be consistent. Diagnoses to be monitored and treated include: Rehabilitation physician to direct team staffing. See daily on rehabilitation rounds. Plan is for acute rehab with PT OT and speech-language therapy rehab nursing social work and nutrition for an acute interdisciplinary team rehab approach. Will work on gait training, ADLs, self-care,and strengthening, bowel and bladder program. DVT prophylaxis and medical management of comorbidities Minimal 3 hours/day 5-6 days/week of rehabilitation services Goal is for discharge home at a modified independent level for all gait mobility ADLs and self-careskills, skin intact, medically stable, optimal cardiopulmonary status, free of infection, continentof bowel bladder, adequate pain management and comfort, complete discharge disposition home set up patient and family training. Medical Comorbidities at the Time of Admission ESRD Hypertension CAD s/p CABG PAD s/p Fem bypass GERD COPD Hyperlipidemia Status post kidney transplant 2009 A-fib Factor X Barriers to Discharge Functional medical impairments Consulting Physician Dr. Blood Estimated Length of Stay 2-3 weeks Medications reviewed and are up to date IJanee LPN am scribing for , and in the presence of Dr. Murray PERSON. I, Dr. Murray PERSON, personally performed the services described in this documentation, as scribed byJanee LPN in my presence and it is both accurate and complete. Digitally Signed by FARZANA DAVIS DO on 06/28/2024 03:40 PM [id number] Telephone encounter Note* Telephone Encounter - Bebe Guadarrama RN - 06/02/2024 3:46 PM EDT Patient called in stating that he is [facility] an [facility]. States that he has had 2 heart caths and they were unable to open in vessel up during it. Patient states that with med changes his heart seems to be doing better but he is now having kidney issues. Patient states they are planning to order cardiac rehab on discharge. Patient to keep us updated. Bebe Guadarrama RN [facility]08-27-2024 Miscellaneous Notes* Telephone Encounter - Bebe Guadarrama RN - 06/02/2024 3:46 PM EDT Patient called in stating that he is currently an inpatient [facility]. States that he has had 2 heart caths and they were unable to open in vessel up during it. Patient states that with med changes his heart seems to be doing better but he is now having kidney issues. Patient states they are planning to order cardiac rehab on discharge. Patient to keep us updated. Bebe Guadarrama RN documented in this encounterMi[facility]08-[facility]-2024 NotePatient Outreach (FAMPWS) MARIAN KOCH ([id number]) 1970 M Date Time Provider Department 05/26/24 [facility] During your visit today, we recorded the following information about you: Allergies As of Date: 05/26/2024 Noted Allergy Reaction BEE STING 02/20/2010 4 - Hives 7 - Swelling DARVOCET-N 100 (PROPOXYPHENE N-AC*02/20/2010 4 - Hives Date Reviewed: 03/31/2024 Reviewed by: Melissa Galan LPN - Fully Assessed Prescriptions as of 05/26/2024 - ferrous sulfate 325 mg (65 mg iron) EC tablet Take 1 tablet by mouth. - Cholecalciferol, Vitamin D3, 50 mcg (2,000 unit) cap Take 100 mcg by mouth. - furosemide (LASIX) 20 mg tablet Take 20 mg by mouth every 48 hours. - albuterol HFA (PROVENTIL HFA, VENTOLIN HFA) 90 mcg/actuation inhaler Inhale 2 Puffs as instructed every 6 hours as needed. - tacrolimus ER (ASTAGRAF XL) 1 mg capsule Take 1 capsule by mouth every 24 hours. 0.5mg daily - ipratropium-albuterol (DUONEB) 0.5 mg-3 mg(2.5 mg base)/3 mL nebu Inhale 3 mL as instructed every 6 hours as needed for wheezing/shortness of breath. - gabapentin (NEURONTIN) 300 mg capsule Take 1 capsule by mouth three times a day for 90 days. - omeprazole (PRILOSEC) 40 mg capsule Take 1 capsule by mouth once daily. - sulfamethoxazole-trimethoprim (BACTRIM) 400-80 mg per tablet Take 1 tablet by mouth every afternoon. - Fluorouracil 5 % cream - alendronate (FOSAMAX) 70 mg tablet Take 1 tablet by mouth one time a week. Take with a full glass of water, on an empty stomach; do NOT lie down for 30minutes. - atorvastatin (LIPITOR) 80 mg tablet Take 1 tablet by mouth daily at bedtime. - CARDURA XL 8 mg 24 hr tablet TAKE 1 TABLET BY MOUTH EVERY DAY WITH BREAKFAST - predniSONE (DELTASONE) 5 mg tablet Take 1 tablet by mouth once daily. - amLODIPine (NORVASC) 5 mg tablet Take 10 mg by mouth once daily. - carvedilol (COREG) 25 mg tablet Take 1 tablet by mouth twice daily with meals. - acetaminophen (TYLENOL) 500 mg tablet Take 500 mg by mouth every 8 hours as needed. - mycophenolate mofetil (CELLCEPT) 250 mg capsule Take 500 mg by mouth twice daily. - magnesium oxide 400 mg cap Take 1 capsule by mouth twice daily. - ASPIRIN 81 MG TAB Take one(1) tablet daily. Problem List As Of Date 05/26/2024 Noted Resolved Renal failure, chronic, stage 3 (moderate) [N18*02/20/2010 CAD (coronary artery disease) [I25.10] 02/20/2010 Dialysis patient [Z99.2] 02/20/2010 11/28/2012 DVT (deep venous thrombosis) (HCC) [I82.409] 09/28/2010 VIC (obstructive sleep apnea) [G47.33] 08/04/2011 Depression [F32.A] 03/07/2012 H/O kidney transplant [Z94.0] 11/28/2012 GERD (gastroesophageal reflux disease) [K21.9] 03/05/2014 Chronic left-sided low back pain with left-side*06/21/2016 Bilateral leg pain [M79.604, M79.605] 11/28/2016 Iliotibial band syndrome [M76.30] 11/28/2016 Radiculopathy, lumbar region [M54.16] 11/28/2016 Claudication of both lower extremities (HCC) [I*08/22/2017 Neurogenic bladder [N31.9] 12/08/2017 Hyperparathyroidism (HCC) [E21.3] 12/08/2017 Hyperhomocysteinemia (HCC) [E72.11] 12/08/2017 Pulmonary nodules [R91.8] Renal stones [N20.0] RLQ abdominal pain [R10.31] 01/06/2018 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/07/2018 Coronary artery disease of [place] artery of [place]*01/07/2018 Chronic pain syndrome [G89.4] 08/09/2018 Other osteoporosis without current pathological*09/21/2018 Current mild episode of major depressive disord*02/05/2019 COPD (chronic obstructive pulmonary disease) (H*06/09/2021 Mixed hyperlipidemia [E78.2] 06/09/2021 Palpitations [R00.2] 06/09/2021 Screen for colon cancer [Z12.11] 06/09/2021 06/14/2021 Cataracta [H26.9] 03/06/2022 Traumatic incomplete tear of left rotator cuff *09/15/2022 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 Abnormal EKG [R94.31] 12/14/2022 VHD (valvular heart disease) [I38] 12/17/2022 Pulmonary hypertension (HCC) [I27.20] 12/17/2022 S/P shoulder surgery [Z98.890] 01/25/2023 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] 03/31/2024 Encounter Status:Closed by NIKKI RAMÍREZ on 05/26/24[facility] 05-25-2024 Telephone encounter Note* Telephone Encounter - Nikki Rmaírez MA - 05/25/2024 4:56 PM EDT Pt discharged from [facility] on 05/24/24. He was transferred to [facility] CVICU. Currently still there. He will need hospital follow up when discharged. Nikki Ramírez MA May 25, 2024 4:57 PM [facility]08-19-2024 Miscellaneous Notes* Telephone Encounter - Nikki Ramírez MA - 05/25/2024 4:56 PM EDT Pt discharged from [facility] on 05/24/24. He was transferred to [facility] CVICU. Currently still there. He will need hospital follow up when discharged. Nikki Ramírez MA May 25, 2024 4:57 PM * Telephone Encounter - Melissa Layne APRN.CNP - 05/25/2024 4:[address] of the abdomen and pelvis without contrast done May 19, 2024: Findings: Prominent calcified plaque in the posterior left lower hemithorax. There is a small left pleural effusion. There is an ill-defined nodule in the superior segment of the right lower lobe measuring 7 mm and has a nonspecific appearance. A follow-up CT in 6 months would be helpful. Please let patient know that there is a nonspecific right lower lobe pulmonary nodule measuring 7 mm in size. The radiologist is asking for a follow-up CT of the chest in 6 months. Should this be done through the [facility] or back through [place]? Up to him. documented in this encounterMiami Valley Hospital08-19-2024 Telephone encounter Note * Telephone Encounter - Melissa Layne APRN.CNP - 05/25/2024 4:[address] of the abdomen and pelvis without contrast done May 19, 2024: Findings: Prominent calcified plaque in the posterior left lower hemithorax. There is a small left pleural effusion. There is an ill-defined nodule in the superior segment of the right lower lobe measuring 7 mm and has a nonspecific appearance. A follow-up CT in 6 months would be helpful. Please let patient know that there is a nonspecific right lower lobe pulmonary nodule measuring 7 mm in size. The radiologist is asking for a follow-up CT of the chest in 6 months. Should this be done through the [facility] or back through [place]? Up to him. [facility]08-13-2024 Telephone encounter Note* Telephone Encounter - Melissa Layne APRN.CNP - 05/19/2024 2:01 PM EDT Patient was admitted to hospital with fever and hypotension at [facility] on 2023. 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 Symptoms began 6 hours prior to arrival when driving back from [place] where he began to feel very cold turned his heater up to 83 degrees. He began to have severe malaise and generalized weakness followed by facial flushing. Temperature spiked at 101.6 confirmed by the ER. Granddaughter recently developed upper respiratory infection on May 08 when he was exposed to her. Generalized headache which is unusual for him. Denies neck pain, chest pain, shortness of breath, abdominal pain, dysuria, or rash. He thinks he might be rejecting his kidney transplant. Temp 101.6, systolic blood pressure 85 mmHg with leukopenia of 2.7 thousand present on admission. No obvious source of infection but an elevated CRP of 13.7 and elevated procalcitonin of 0.4 NG per mL. The transplant physician on-call at his tertiary center declining transfer to their facility at this time until source can be clearly identified complicated by laboratory evidence of acute kidney injury with elevated creatinine of 3.06. Baseline 2.4 mg/dL on April 26. He was admitted to the intensive care unit under's sepsis protocol call and placed on empiric IV Zosyn. Patient does have a small left pleural effusion. Calcified pleural plaques noted bilaterally. Patient was diagnosed with sepsis. Admitted to the intensive care unit. CT of the chest, abdomen, pelvis without contrast is negative for acute pathology that would explain symptoms. Evidence of acute kidney injury vigorous volume resuscitation, check CMP in the morning History of renal transplant continue antirejection medications. DVT prophylaxis heparin 5000 units subcu twice daily. [facility] Work Phone: [phone]) 433-990808-13-2024 Miscellaneous Notes* Telephone Encounter - Melissa Layne APRN.CNP - 05/19/2024 2:01 PM EDT Patient was admitted to hospital with fever and hypotension at [facility] on 2023. 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 Symptoms began 6 hours prior to arrival when driving back from [place] where he began to feel very cold turned his heater up to 83 degrees. He began to have severe malaise and generalized weakness followed by facial flushing. Temperature spiked at 101.6 confirmed by the ER. Sushilaughter recently developed upper respiratory infection on May 08 when he was exposed to her. Generalized headache which is unusual for him. Denies neck pain, chest pain, shortness of breath, abdominal pain, dysuria, or rash. He thinks he might be rejecting his kidney transplant. Temp 101.6, systolic blood pressure 85 mmHg with leukopenia of 2.7 thousand present on admission. No obvious source of infection but an elevated CRP of 13.7 and elevated procalcitonin of 0.4 NG per mL. The transplant physician on-call at his tertiary center declining transfer to their facility at this time until source can be clearly identified complicated by laboratory evidence of acute kidney injury with elevated creatinine of 3.06. Baseline 2.4 mg/dL on April 26. He was admitted to the intensive care unit under's sepsis protocol call and placed on empiric IV Zosyn. Patient does have a small left pleural effusion. Calcified pleural plaques noted bilaterally. Patient was diagnosed with sepsis. Admitted to the intensive care unit. CT of the chest, abdomen, pelvis without contrast is negative for acute pathology that would explain symptoms. Evidence of acute kidney injury vigorous volume resuscitation, check CMP in the morning History of renal transplant continue antirejection medications. DVT prophylaxis heparin 5000 units subcu twice daily. documented in this encounterMiami Valley Hospital08-08-2024 Telephone encounter Note * Telephone Encounter - STORMY De Paz CNP - 05/14/2024 9:49 AM EDT Pt seen last week for yearly follow up for lower extremity PAD Mentioned he had been recently seen and treated at for upper extremity edema and underwent imaging. It was noted that he had chronic right internal jugular vein and subclavian vein DVTs as well asocclusion of his subclavian vein stent and right upper ext AVF. Vascular surgery consulted and recommended symptomatic treatment of swelling including MARY wraps. PT responded well to this treatment but was wondering if Dr Jauregui would be able to review imaging as well. Right upper ext. Venous Duplex 04/27/24 () CRITICAL RESULT Critical Result: Chronic DVT in right IJV and indeterminate age in right proximal subclavain vein. CONCLUSIONS: Right Upper Venous: There is age indeterminate deep vein thrombosis visualized in the proximal subclavian vein. There are chronic changes visualized in the internal jugular vein. The remainder of right upper extremity is negative for deep vein thrombosis. No flow noted in the stent at proximal right subclavian vein and unable to show compression due to stent. Non functioning R AVG. Imaging reviewed per Dr Jauregui Agree that right subclavian vein stent is occluded. No intervention indicated Agree with Vascular Surgery --continue symptomatic treatment of swelling Will call patient to inform him of above. [id number] Miscellaneous Notes* Telephone Encounter - STORMY De Paz CNP - 05/14/2024 9:49 AM EDT Pt seen last week for yearly follow up for lower extremity PAD Mentioned he had been recently seen and treated at for upper extremity edema and underwent imaging. It was noted that he had chronic right internal jugular vein and subclavian vein DVTs as well asocclusion of his subclavian vein stent and right upper ext AVF. Vascular surgery consulted and recommended symptomatic treatment of swelling including MARY wraps. PT responded well to this treatment but was wondering if Dr Jauregui would be able to review imaging as well. Right upper ext. Venous Duplex 04/27/24 () CRITICAL RESULT Critical Result: Chronic DVT in right IJV and indeterminate age in right proximal subclavain vein. CONCLUSIONS: Right Upper Venous: There is age indeterminate deep vein thrombosis visualized in the proximal subclavian vein. There are chronic changes visualized in the internal jugular vein. The remainder of right upper extremity is negative for deep vein thrombosis. No flow noted in the stent at proximal right subclavian vein and unable to show compression due to stent. Non functioning R AVG. Imaging reviewed per Dr Jauregui Agree that right subclavian vein stent is occluded. No intervention indicated Agree with Vascular Surgery --continue symptomatic treatment of swelling Will call patient to inform him of above. documented in this encounterSPaulding County [id number] History of Present illness Narrative* STORMY De Paz CNP - 05/07/2024 3:30 PM EDT [facility] Vascular Surgery Follow-up Office Visit CHIEF COMPLAINT: Chief Complaint Patient presents with Follow-up recall AD 03/23/24 HISTORY OF PRESENT ILLNESS: Marian Koch is a 54 y.o. male who returns today for follow-up for lower extremity PAD. Hx of left to right fem fem bypass [place] [address] Jauregui. Last OV 05/2023. Here for recall appointment. Pt with a hx of kidney transplant. He was recently in the hospital at for renal issues and edema. Pt states he had extreme swelling of his right arm and was told he had chronic DVTs as well as occlusion of his right subclavian vein stent. He states hesaw vascular surgery at who told him surgery was not required. He is hoping Dr Jauregui can review his imaging to further evaluate. In terms of his lower extremity PAD, pt feels that it is stable. He does endorse some leg pain withambulation but notes it has not worsened since his last visit. He denies any rest pain or slow/nonhealing sores to his feet. Recent arterial duplex notes unobtainable ABIs 2/2 to non compressible vessels bit notes waveforms appear normal. 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 Chest pain CHF (congestive heart failure) ([facility]) CKD (chronic kidney disease) stage 3, GFR 30-59 ml/min ([facility]) COPD (chronic obstructive pulmonary disease) ([facility]) ESRD (end stage renal disease) ([facility]) s/p renal transplant GERD (gastroesophageal reflux disease) History of blood transfusion History of renal transplant HTN (hypertension) Hx of blood clots hx PE 15 YRS AGO Immunosuppressed status ([facility]) Neurogenic bladder NSTEMI (non-ST elevated myocardial infarction) ([facility]) 12/27/2017 Past Surgical History: Past Surgical History: [...] 6 HOURS NEEDED DIRECTED, Disp: , Rfl: alendronate (Fosamax) 70 MG tablet, Take 70 mg by mouth once a week., Disp: , Rfl: amLODIPine (Norvasc) 5 MG tablet, Take 5 mg by mouth daily., Disp: , Rfl: Aspirin 81 MG capsule, Take 81 mg by mouth daily., Disp: , Rfl: atorvastatin (Lipitor) 80 MG tablet, Take 80 mg by mouth Nightly., Disp: , Rfl: cholecalciferol (Vitamin D-3) 50 MCG (2000 UT) capsule, 2,000 Units., Disp: , Rfl: doxazosin (Cardura) 8 MG tablet, , Disp: , Rfl: ferrous sulfate 325 (65 Fe) MG EC tablet, Take 1 tablet by mouth in the morning., Disp: , Rfl: furosemide (Lasix) 40 MG tablet, Take 40 mg by mouth in the morning., Disp: , Rfl: magnesium oxide (Mag-Ox) 400 MG tablet, Take 400 mg by mouth in the morning and 400 mg in the evening., Disp: , Rfl: mycophenolate (Cellcept) 500 MG tablet, Take 500 mg by mouth in the morning and 500 mg in the evening., Disp: , Rfl: omeprazole (PriLOSEC) [address] capsule, Take 20 mg by mouth in the morning., Disp: , Rfl: tacrolimus ER (Astagraf XL) 1 MG capsule ER, Take 1 mg by mouth in the morning., Disp: , Rfl: fluorouracil (Efudex) 5 % cream, APPLY TO LEFT LOWER LIP 2X DAILY FOR 2 WEEKS. WASH HANDS IMMEDIATELY AFTER APPLYING., Disp: , Rfl: Allergies: Bee venom and Propoxyphene Social History: Social History Socioeconomic History Marital status: Spouse name: Not on file Number of children: Not on file Years of education: Not on file Highest education level: Not on file Occupational History Not on file Tobacco Use Smoking status: Every Day Current packs/day: 0.00 Types: Cigarettes Last attempt to quit: 10/07/2010 Years since quittin.5 Smokeless tobacco: Current Tobacco comments: Chew tobacco Substance and Sexual Activity Alcohol use: No Drug use: No Sexual activity: Not on file Other Topics Concern Not on file Social History Narrative Not on file Social Determinants of Health Financial Resource Strain: Medium Risk (04/29/2024) Received from [facility] Overall Financial Resource Strain (CARDIA) Difficulty of Paying Living Expenses: Somewhat hard Food Insecurity: No Food Insecurity (09/24/2023) Received from [facility] Hunger Vital Sign Worried About Running Out of Food in the Last Year: Never true Ran Out of Food in the Last Year: Never true Transportation Needs: No Transportation Needs (04/29/2024) Received from [facility] PRAPARE - Transportation Lack of Transportation (Medical): No Lack of Transportation (Non-Medical): No Physical Activity: Insufficiently Active (09/24/2023) Received from [facility] Exercise Vital Sign Days of Exercise per Week: 2 days Minutes of Exercise per Session: 30 min Stress: Stress Concern Present (09/24/2023) Received from [facility] Occupational [facility] - Occupational Stress Questionnaire Feeling of Stress : To some extent Social Connections: Moderately Isolated (09/24/2023) Received from [facility] Social Connection and Isolation Panel [NHANES] Frequency of Communication with Friends and Family: Three times a week Frequency of Social Gatherings with Friends and Family: Once a week Attends [employer] Services: Never Active Member of Clubs or Organizations: No Attends Club or Organization Meetings: Never Marital Status: Intimate Partner Violence: Not on file Housing Stability: Low Risk (04/29/2024) Received from [facility] Housing Stability Vital Sign Unable to Pay for Housing in the Last Year: No Number of Times Moved in the Last Year: 0 Homeless in the Last Year: No Family History: Family History Problem Relation Name Age of Onset Cancer Father High Blood Pressure Mother Cancer Mother REVIEW OF SYSTEMS: Review of Systems Constitutional: Negative. HENT: Negative. Eyes: Negative. Respiratory: Negative. Cardiovascular: Negative. Gastrointestinal: Negative. Endocrine: Negative. Genitourinary: Negative. Musculoskeletal: Positive for myalgias (bilateral leg pain). Skin: Negative. Allergic/Immunologic: Negative. Neurological: Positive for numbness (bilateral feet). Hematological: Negative. LABS: No results found for: CREATININE No results found for: WBC , HGB , HCT , MCV , PLT No results found for: INR , PROTIME No results found for: VLDL PHYSICAL EXAM: Vitals: 05/07/24 1523 Pulse: 64 Resp: 18 Physical Exam Constitutional: Appearance: Normal appearance. HENT: Head: Normocephalic and atraumatic. Cardiovascular: Rate and Rhythm: Normal rate and regular rhythm. Pulses: Dorsalis pedis pulses are detected w/ Doppler on the right side and detected w/ Doppler on the leftside. Posterior tibial pulses are detected w/ Doppler on the right side and detected w/ Doppler on the left side. Comments: Feet warm. No ulcerations Bilateral upper extremity AVFs--nonfunctioning No edema currently to bilateral upper extremities Prominent veins noted to right chest wall Pulmonary: Effort: Pulmonary effort is normal. Breath sounds: Normal breath sounds. Abdominal: General: There is no distension. Palpations: Abdomen is soft. Tenderness: There is no abdominal tenderness. Musculoskeletal: General: Normal range of motion. Cervical back: Normal range of motion and neck supple. Right lower leg: No edema. Left lower leg: No edema. Skin: General: Skin is warm and dry. Neurological: General: No focal deficit present. Mental Status: He is alert and oriented to person, place, and time. Psychiatric: Mood and Affect: Mood normal. Behavior: Behavior normal. Behavior is cooperative. Imaging Arterial Duplex 03/23/24 Patent left to right fem-fem graft. Right side findings: Resting CHEL is not obtainable secondary to non-compressible vessels. Waveformsappear normal. Left side findings: Resting CHEL is not obtainable secondary to non-compressible vessels. Waveforms appear normal. Upper ext venous duplex 04/27/24 () CONCLUSIONS: Right Upper Venous: There is age indeterminate deep vein thrombosis visualized in the proximal subclavian vein. There are chronic changes visualized in the internal jugular vein. The remainder of right upper extremity is negative for deep vein thrombosis. No flow noted in the stent at proximal right subclavian vein and unable to show compression due to stent. Non functioning R AVG. ASSESSMENT/PLAN: Problem List Items Addressed This Visit Circulatory Atherosclerosis of te-moak artery of extremity with intermittent claudication (HCC) - Primary 1. Stable follow up of lower extremity PAD I reviewed with the patient that the circulation to his feet remains adequate and that I do not feel that he requires any additional testing or intervention at this time. He notes that his claudication has not worsened and he is not interested in further testing at this time. Pt should continue on ASA/Statin and f/u with PCP for further atherosclerotic risk factor reduction Highly recommend avoidance of all tobacco or nicotine products Meticulous foot care was emphasized and the patient was instructed to call if he develops a non-healing foot wound of any kind I instructed the patient to walk daily Repeat arterial duplex in 1 year F/U in 1 year for PAD check--sooner should any issues arise Will obtain Upper Ext duplex imaging from for review by Dr Jauregui. Will call patient with update . documented in this [facility]07-18-2024 Telephone encounter Note* Telephone Encounter - Sarah Fung MA - 04/23/2024 4:[address] Dockery is in [place] office on Saturday. Will have him review and advise at that time. TTE results are in Care everywhere with . Sarah Fung MA [facility]07-18-2024 Miscellaneous Notes* Telephone Encounter - Sarah Fung MA - 04/23/2024 4:[address] Dockery is in [place] office on Saturday. Will have him review and advise at that time. TTE results are in Care everywhere with . Sarah Fung MA * Telephone Encounter - Mei Erickson LPN - 04/23/2024 3:55 PM EDT Patient called, verified name and date of , regarding vascular studies done in February. Patient states last office visit 02/03/24, Dr. Dockery ordered vascular test to done. Assessment and Plan: 53 years old gentleman prior history of severe three-vessel coronary artery disease bypass surgery significant peripheral vascular disease ASSESSMENT/PLAN: 1. Peripheral vascular disease (HCC) - ICD9: 443.9, ICD10: I73.9 (primary diagnosis) Significant upper extremity and lower extremity peripheral vascular disease Major complaint swelling in the right arm compared to the left with prior history of stenting of the venous system suggestive of stent thrombosis or stenosis Schedule for upper extremity venous and arterial duplex for assessment of the venous and arterial system Both AV fistula both arms are nonfunctional \Patient had femoral to femoral bypass for his peripheral vascular disease many years ago \ - US ARM VEIN DVT [facility] - US ARM ARTERIAL [facility] - CONSULT TO VASCULAR SURGERY Patient completed studies on 02/26/24, has not heard back from office with results. Patient also states Dr. Dockery was going to reach out to a surgeon at [facility], patient states he has not heard anymore about that neither. Patient states he is still having swelling in extremities. Patient states he also had a recent US of his heart done through ordered by his transplant doctor. Patient ok'd staff to request those records if needed. Patient would like a call back from cardiology staff with results, next steps in proceeding. Numberverified. Mei Erickson LPN April 23, 2024 4:00 PM [facility] Telephone encounter Note * Telephone Encounter - Mei Erickson LPN - 04/23/2024 3:55 PM EDT Patient called, verified name and date of , regarding vascular studies done in February. Patient states last office visit 02/03/24, Dr. Dockery ordered vascular test to done. Assessment and Plan: 53 years old gentleman prior history of severe three-vessel coronary artery disease bypass surgery significant peripheral vascular disease ASSESSMENT/PLAN: 1. Peripheral vascular disease (HCC) - ICD9: 443.9, ICD10: I73.9 (primary diagnosis) Significant upper extremity and lower extremity peripheral vascular disease Major complaint swelling in the right arm compared to the left with prior history of stenting of the venous system suggestive of stent thrombosis or stenosis Schedule for upper extremity venous and arterial duplex for assessment of the venous and arterial system Both AV fistula both arms are nonfunctional \Patient had femoral to femoral bypass for his peripheral vascular disease many years ago \ - US ARM VEIN DVT [facility] - US ARM ARTERIAL [facility] - CONSULT TO VASCULAR SURGERY Patient completed studies on 02/26/24, has not heard back from office with results. Patient also states Dr. Dockery was going to reach out to a surgeon at [facility], patient states he has not heard anymore about that neither. Patient states he is still having swelling in extremities. Patient states he also had a recent US of his heart done through ordered by his transplant doctor. Patient ok'd staff to request those records if needed. Patient would like a call back from cardiology staff with results, next steps in proceeding. Numberverified. Mei Erickson LPN April 23, 2024 4:00 PM [facility]06-25-2024 History of Present illness Narrative* Jesenia Benedict RT(R) - 03/31/2024 9:00 AM EDT Radiology Service Progress Note PATIENT NAME: Marian Koch DATE OF SERVICE: March 31, 2024 TIME: 8:59 AM PATIENT IDENTITY VERIFICATION COMPLETED USING TWO (2) IDENTIFIERS: Name and Date of confirmedby patient verbally. FALL SCREENING: Has the patient had 2 falls in the last year or 1 fall with injury or currently using an Ambulatory Assistive Device (Walker, Cane, Wheelchair, Crutches, etc.)? No PATIENT GENDER DATA: Male PATIENT RELEVANT IMPLANT DATA REVIEWED: Not Applicable PATIENT PRESENTS WITH AN IMPLANTABLE OR ATTACHED SECOND OFFICER: No RADIOLOGY DEPARTMENT: General X-ray: Exam(s) Completed: Chest X-Ray PERIPHERAL IV DATA: Not applicable SIGNED BY: RT Bob(R) March 31, 2024 8:59 AM documented in this [facility]24 NoteHNO ID: [id number] Author: JESENIA BENEDICT RT(R) Service: Radiology Author Type: Technologist Type: Progress Notes Filed: 03/31/2024 09:04 Note Text: Radiology Service Progress Note PATIENT NAME: Marian Koch DATE OF SERVICE: March 31, 2024 TIME: 8:59 AM PATIENT IDENTITY VERIFICATION COMPLETED USING TWO (2) IDENTIFIERS: Name and Date of confirmed by patient verbally. FALL SCREENING: Has the patient had 2 falls in the last year or 1 fall with injury or currently using an Ambulatory Assistive Device (Walker, Cane, Wheelchair, Crutches, etc.)? No PATIENT GENDER DATA: Male PATIENT RELEVANT IMPLANT DATA REVIEWED: Not Applicable PATIENT PRESENTS WITH AN IMPLANTABLE OR ATTACHED SECOND OFFICER: No RADIOLOGY DEPARTMENT: General X-ray: Exam(s) Completed: Chest X-Ray PERIPHERAL IV DATA: Not applicable SIGNED BY: RT Bob(Meet) March 31, 2024 8:59 [facility]06-25-2024 History of Present illness Narrative* Diana Tate PA-C - 03/31/2024 8:00 AM EDT 54 year old male with c/o here for follow up ER. Current status: Pain level tolerable mostly foot from plantar spur, lower back, uses Tylenol Weight 3 lbs. No lightheadedness or dizziness. No sinus issues. No cough outside dry cough ev yazmin once I awhile No swallowing issues, heart burn, reflux. No chest, arm, upper back, anterior neck pain Sleeps in recliner, has tried to lay flat in awhile Urination: normal urination, nocturia x 2. No pain or discomfort. No arm pain, + swelling in right arm (after IV in ER), both legs up to knees at times and right lower abdomen. Leg pain if walks a lot in calves, thigh, lower back. Like dragging leg around, heavy, aches, throbs. Improves with standing still. No worse than after fem-fem bypass. Uses arms all day long, some aching and cramping. 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 03/23/[address] Vegas [facility] ED r/t need for follow up with pneumonia [facility] with complaint of cough, dyspnea on exertion, mildin severity positive for blood- tinged sputum. Low-grade temp 100.1 F lasted less than a day, mild cough. On no blood thinners. [id number] smoking history. Past medical history positive for DVT. Vital signs: 98.4 F-64-18-116/40-96% RA exam demonstrated no unusual respiratory effort or chest sounds. Chest x-ray demonstrated right upper lobe lower aspect with density possible pneumonia. History of chronic scarring in the left lower lobe and plaque seen on prior x-rays. 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 Interpretation identified no evidence of pulmonary embolism, rightupper lobe infiltrate with mild patchy infiltrates in both lower lobes superimposed on scarring. Densely calcified pleural plaques at the left lung base. Several small nodules in the right lower lobethrombus is seen in the right subclavian vein and proximal portion of the superior vena cava CBC demonstrated no elevated WBC, H&H 9.0 and 20.5 which is his baseline, platelets 78,000. Abnormal chemistries: Chloride 108-BUN 23-CRE 1.89-EGFR 40-GLU 141 D-dimer elevated at 1.87 Discharged on Zithromax 5-day pack Dx: RLL 02/26/2024 arterial US: IMPRESSION RIGHT SIDE Subclavian artery : patent . Axillary artery : patent . Brachial artery : plaque noted without evidence of hemodynamically significant stenosis . Calcified vessel wall. Radial artery : plaque noted without evidence of hemodynamically significant stenosis in the forearm. Segment of occlusion at the wrist with reconstitution at the hand. Ulnar artery : plaque noted without evidence of hemodynamically significant stenosis . Calcified, shadowing plaque noted. A non functioning occluded arteriovenous dialysis fistula is noted in the right arm. LEFT SIDE Subclavian artery distal: plaque noted without evidence of hemodynamically significant stenosis . Axillary artery distal: plaque noted without evidence of hemodynamically significant stenosis . Brachial artery proximal upper arm: plaque noted without evidence of hemodynamically significant stenosis . -High brachial bifurcation noted in the proximal upper arm. Radial artery mid upper arm: occluded . Reconstitutes distal upper arm. Multiple collaterals visualized mid/distal upper arm. Calcified shadowing plaque noted. Ulnar artery : plaque noted without evidence of hemodynamically significant stenosis . Calcified shadowing plaque noted. A non functioning occluded arteriovenous dialysis graft is noted in the left arm. 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 Retrograde flow noted. 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 No flow visualized proximal vessel. Clinical correlation is advised; deep vein thrombosis of indeterminate age in the subclavian vein. Appears more chronically occluded. Occluded stent proximal vessel. RIGHT SIDE - SUPERFICIAL VEINS Negative for superficial thrombophlebitis in the basilic vein and cephalic vein. Visualized in segments LEFT SIDE - DEEP VEINS Negative for acute deep vein thrombosis. -High brachial bifurcation noted in the proximal upper arm. LEFT SIDE - SUPERFICIAL VEINS Negative for superficial thrombophlebitis in the basilic vein and cephalic vein. Visualized in segments. 02/03/2024 f/u with cardiology Dr. Dockery: identifies severe upper and lower extremity claudication Orders for US DVT bilateral arm, US arm bilateral arterial with consult to vascular surgery. Also identifies claudication bilateral lower extremities though sx details are not given. 01/15 [address] Matthew Sellers: essentially stable with rec to check DXA every 2-3 years, stable anemia: check iron, ferritin, consider RICK. Identifies no edema. 01/13/2024 outside labs [facility]: Total protein 6 Creatinine, urine random 31.9 Total protein/creatinine ratio 0.99H PTH 167.1 H Vitamin D 25-hydroxy, total 17 L MG 1.82 Renal function panel WNL except creatinine 1.57, EGFR 52 CBC abnormals: RBC 2.75L-Hgb 10.8 L -HCT 34.5 L, MCHC 31.3-PLT 124 otherwise normal 10/10/2023 outside labs [facility]: CBC abnormals: RBC 3.47L-Hgb 10.2 L-HCT 31.9 L-PLT 117 L Renal abnormals: CL 108H-BUN 32 H-CRE 1.80H, eGFR 44 01/02/2024 left foot pain 10/10 foot pain per Dusty Manuel treat as heel spur , XR plant heel spur. Placed consult to podiatry: went to Dr. Srivastava. 12/30/2023 clinically resolved pneumonia with CXR confirmation. HISTORIES FAMILY HISTORY Problem Relation Age of [...] AI 1-2+ Claudication of both lower extremities ([facility]) 08/22/2017 02/05/19 PVR Johana Jauregui: no stenosis left fem-pop bypass. Unable to get CHEL due to non-compressible vesels11/12/[address] Zavala [facility]: RIGHT: resting CHEL > 1.81, non-compressible arteries; TBI0.40 = PAD; Right ankle: Moderate disease at rest. Right iliofemoral disease. Severe disease noted,post exercise, by tracings. LEFT SIDE: resting CHEL 1.81, non-compressible vessels, CHEL not accurate. 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 On Sensipar in remote past. Kidney dialysis 1988, and 2000 Neurogenic bladder VIC (obstructive sleep apnea) 08/04/2011 declines CPAP Pulmonary embolism (HCC) 10-12 years ago Pulmonary nodules Foreign body reaction in pulmonary vasculature, ? cause. Extensive evaluation ruled out vasculitis, fungal inffection, pneumoconiosis. May have been from gortex graft .Resulted in multiple pulmonarynodules. Radiculopathy, lumbar region 11/28/2016 Renal failure 02/20/2010 [...] Smoking status: Former Packs/day: 1.25 Years: 15.00 Additional pack years: 0.00 Total pack years: 18.75 Types: Cigarettes Quit date: 09/06/2011 [...] Due to Treatment With Immunosuppressive Medication (Hcc) (Hcc) Coronary Artery Disease of [place] 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 (Hcc) Chronic Pain Syndrome Other Osteoporosis Without Current Pathological Fracture Current Mild Episode of Major Depressive Disorder (Hcc) Copd (Chronic Obstructive Pulmonary Disease) (Hcc) Mixed Hyperlipidemia Palpitations Cataracta Traumatic Incomplete Tear of Left Rotator Cuff Benign Prostatic Hyperplasia With Urinary Obstruction Abnormal Ekg Vhd (Valvular Heart Disease) Pulmonary Hypertension (Hcc) S/P Shoulder Surgery Current Outpatient Medications Medication Sig Dispense Refill albuterol HFA (PROVENTIL HFA, VENTOLIN HFA) 90 mcg/actuation inhaler Inhale 2 Puffs as instructed every 6 hours as needed. 6.7 Each 5 tacrolimus ER (ASTAGRAF XL) 1 mg capsule Take 1 capsule by mouth every 24 hours. 0.5mg daily ipratropium-albuterol (DUONEB) 0.5 mg-3 mg(2.5 mg base)/3 mL nebu Inhale 3 mL as instructed every 6hours as needed for wheezing/shortness of breath. 360 mL 1 gabapentin (NEURONTIN) 300 mg capsule Take 1 capsule by mouth three times a day for 90 days. 90 capsule 2 omeprazole (PRILOSEC) 40 mg capsule Take 1 capsule by mouth once daily. 30 capsule 5 sulfamethoxazole-trimethoprim (BACTRIM) 400-80 mg per tablet Take 1 tablet by mouth every afternoon. Fluorouracil 5 % cream alendronate (FOSAMAX) 70 mg tablet Take 1 tablet by mouth one time a week. Take with a full glass of water, on an empty stomach; do NOT lie down for 30minutes. 12 tablet 3 atorvastatin (LIPITOR) 80 mg tablet Take 1 tablet by mouth daily at bedtime. 90 tablet 3 CARDURA XL 8 mg 24 hr tablet TAKE 1 TABLET BY MOUTH EVERY DAY WITH BREAKFAST 90 tablet 3 predniSONE (DELTASONE) 5 mg tablet Take 1 tablet by mouth once daily. amLODIPine (NORVASC) 5 mg tablet Take 10 mg by mouth once daily. carvedilol (COREG) 25 mg tablet Take 1 tablet by mouth twice daily with meals. 3 acetaminophen (TYLENOL) 500 mg tablet Take 500 mg by mouth every 8 hours as needed. mycophenolate mofetil (CELLCEPT) 250 mg capsule Take 500 mg by mouth twice daily. 0 magnesium oxide 400 mg cap Take 1 capsule by mouth twice daily. 0 ASPIRIN 81 MG TAB Take one(1) tablet daily. 0 0 No current facility-administered medications for this visit. Hepatitis C Screening Never done HIV Screening Never done Shingrix Vaccine(1 of 2) Never done LDL Cholesterol due on 10/19/2023 EXAM: BP 140/83 Pulse 63 Resp 16 Wt 63 kg (139 lb) SpO2 98% BMI 23.13 kg/m Pleasant adult man in no acute distress, usual pleasant mood. Alert and oriented all spheres. Normal affect and cognition. Speech normal. No deficits to learning or comprehension. Skin with bronzing, multiple superficial purpura with staining,warm, dry, pink to lips and nailbeds. Normal turgor. Respirations regular and unlabored. HEENT: NCAT. No scleral icterus or conjunctival injection. TM's clear. Nose and oropharynx free from injection or lesion. Oral membranes moist and pink. No cervical lymph nodes. Thyroid non-tender, no masses, or enlargement. Carotids pulses 2+/4+ without bruits. Neck veins are flat upright position. Chest is normal shape. Lungs are clear to all pierson with good air exchange through out. No dullness to percussion. Equal excursions. HRRR without murmur or gallop. No lifts, heaves, or rubs. Abdomen: active bowel sounds throughout, soft, nontender, no masses or organomegaly. Identifies swelling in right abdomen with outpouching of LLQ incisional scar of abdominal wall. Pouch-like, soft, active bowel sounds, nontender on palpation. No edema in lower abd. No CVAT. Palpable grafts in lower abdomen with no bruits in abd or femoral.extremities upper and lower are warm and pink with prompt capillary refill. Right arm is swollen antecubital to fingers, slightly firm over prior antecubital IV site. Mildly tender without erythema or streaks. Lower extremities without edema. Dorsal pedal 2/4+ bilaterally, posterior tibial 1/4+ bilaterally. Instant cap refill in all fingers and toes. ASSESSMENT/PLAN: 1. Hospital discharge follow-up - ICD9: V67.59, ICD10: Z09 Records summarized, data reviewed, problem list updated, F/U confirmed, completed home RX for Zitrhomax 2. Scarring of lower left lung - ICD9: 518.89, ICD10: J98.4 Chronic, likely from prior pneumonias 3. Pneumonia of right lower lobe due to infectious organism - ICD9: 486, ICD10: J18.9 Clinically resolved: confirm with CXR, possible CT if indeterminate - XR CHEST 2V FRONTAL/LAT 4. H/O kidney transplant - ICD9: V42.0, ICD10: Z94.0 Stable 5. Renal failure, chronic, stage 3 (moderate) (HCC) - ICD9: 585.3, ICD10: N18.30 - eGFR 52: Stable - Follow up with kidney medicine 6. 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) - ICD9: V58.69, ICD10: D84.821, Z79.899 Follows with renal 7. Swelling of left forearm - ICD9: 729.81, ICD10: M79.89 Secondary to IV extravasation 8. Hernia of abdominal wall - ICD9: 553.20, ICD10: K43.9 Non-tender, no signs of obstruction, incisional 9. Heel spur, left - ICD9: 726.73, ICD10: M77.[address] Srivastava, had injection and inserts with significant pain relief 10. 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 Arterial occlusive disease - ICD9: 444.9, ICD10: I70.90 As above, obstructions with collateral flow. Has some claudication with walking which resolves witha brief standing rest < 1 minute, no nocturnal sx. I spent a total of 65 minutes on the date of the service which included preparing to see the patient, [id number] patient care, completing clinical documentation, obtaining and/or reviewing separately obtained history, performing a medically appropriate examination, counseling and educating the pat ient/family/caregiver, ordering medications, tests, or procedures, communicating with other HCPs (not separately reported), independently interpreting results (not separately reported), and communicating results to the patient/family/caregiver. Some of this note may have been copied and pasted for the purpose of history context and comparison. All questions listed were asked and adjusted for changes in prior data. Diana Tate PA-C documented in this [facility]24 NoteHNO ID: [id number] Author: Diana TATE PA-C Service: ? Author Type: Physician Furniture Repair Technician Type: Progress Notes Filed: 03/31/2024 18:32 Note Text: 54 year old male with c/o here for follow up ER. Current status: Pain level tolerable mostly foot from plantar spur, lower back, uses Tylenol Weight 3 lbs. No lightheadedness or dizziness. No sinus issues. No cough outside dry cough ev yazmin once I awhile No swallowing issues, heart burn, reflux. No chest, arm, upper back, anterior neck pain Sleeps in recliner, has tried to lay flat in awhile Urination: normal urination, nocturia x 2. No pain or discomfort. No arm pain, + swelling in right arm (after IV in ER), both legs up to knees at times and right lower abdomen. Leg pain if walks a lot in calves, thigh, lower back. Like dragging leg around, heavy, aches, throbs. Improves with standing still. No worse than after fem-fem bypass. Uses arms all day long, some aching and cramping. 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 03/23/[address] Vegas [facility] ED r/t need for follow up with pneumonia [facility] with complaint of cough, dyspnea on exertion, mild in severity positive for blood-tinged sputum. Low-grade temp 100.1 F lasted less than a day, mild cough. On no blood thinners. 15-ewun-efek smoking history. Past medical history positive for DVT. Vital signs: 98.4 F-64-18-116/40-96% RA exam demonstrated no unusual respiratory effort or chest sounds. Chest x-ray demonstrated right upper lobe lower aspect with density possible pneumonia. History of chronic scarring in the left lower lobe and plaque seen on prior x-rays. 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 Interpretation identified no evidence of pulmonary embolism, right upper lobe infiltrate with mild patchy infiltrates in both lower lobes superimposed on scarring. Densely calcified pleural plaques at the left lung base. Several small nodules in the right lower lobe thrombus is seen in the right subclavian vein and proximal portion of the superior vena cava CBC demonstrated no elevated WBC, HANDH 9.0 and 20.5 which is his baseline, platelets 78,000. Abnormal chemistries: Chloride 108-BUN 23-CRE 1.89-EGFR 40-GLU 141 D-dimer elevated at 1.87 Discharged on Zithromax 5-day pack Dx: RLL 02/26/2024 arterial US: IMPRESSION RIGHT SIDE Subclavian artery : patent . Axillary artery : patent . Brachial artery : plaque noted without evidence of hemodynamically significant stenosis . Calcified vessel wall. Radial artery : plaque noted without evidence of hemodynamically significant stenosis in the forearm. Segment of occlusion at the wrist with reconstitution at the hand. Ulnar artery : plaque noted without evidence of hemodynamically significant stenosis . Calcified, shadowing plaque noted. A non functioning occluded arteriovenous dialysis fistula is noted in the right arm. LEFT SIDE Subclavian artery distal: plaque noted without evidence of hemodynamically significant stenosis . Axillary artery distal: plaque noted without evidence of hemodynamically significant stenosis . Brachial artery proximal upper arm: plaque noted without evidence of hemodynamically significant stenosis . -High brachial bifurcation noted in the proximal upper arm. Radial artery mid upper arm: occluded . Reconstitutes distal upper arm. Multiple collaterals visualized mid/distal upper arm. Calcified shadowing plaque noted. Ulnar artery : plaque noted without evidence of hemodynamically significant stenosis . Calcified shadowing plaque noted. A non functioning occluded arteriovenous dialysis graft is noted in the left arm. 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 Retrograde flow noted. 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 No flow visualized proximal vessel. Clinical correlation is advised; deep vein thrombosis of indeterminate age in the subclavian vein. Appears more chronically occluded. Occluded stent proximal vessel. RIGHT SIDE - SUPERFICIAL VEINS Negative for superficial thrombophlebitis in the basilic vein and cephalic vein. Visualized in segments LEFT SIDE - DEEP VEINS Negative for acute deep vein thrombosis. -High brachial bifurcation noted in the proximal upper arm. LEFT SIDE - SUPERFICIAL VEINS Negative for superficial thrombophlebitis in the basilic vein and cephalic vein. Visualized in segments. 02/03/2024 f/u with cardiology Dr. Dockery: identifies severe upper and lower extremity (more content not included)...[facility]06-18-2024 Telephone encounter Note* Telephone Encounter - Deion Barbosa MA - 03/24/2024 9:42 AM EDT Patient has follow up 03/31 Deion Barbosa MA [facility]06-18-[facility] Miscellaneous Notes* Telephone Encounter - Deion Barbosa MA - 03/24/2024 9:42 AM EDT Patient has follow up 03/31 Deion Barbosa MA * Telephone Encounter - Diana Tate PA-C - 03/23/2024 5:[address] Dusty Vegas called: Hemoptysis with bright red blood, right pneumonia. CTA no PE Treating with Zithromax VSS\ Rec f/u over next few weeks Please schedule. Herman Galloway PA-C * Telephone Encounter - Zeny Hollis LPN - 03/23/2024 2:05 PM EDT [facility] ER calling they would like pcp to call them back at [phone] to speak to the ER DrEleno documented in this encounterMi[facility]06-17-2024 Telephone encounter Note * Telephone Encounter - Diana Tate PA-C - 03/23/2024 5:[address] Dusty Vegas called: Hemoptysis with bright red blood, right pneumonia. CTA no PE Treating with Zithromax VSS\ Rec f/u over next few weeks Please schedule. Herman Galloway PA-C [facility]06-17-[facility] Telephone encounter Note* Telephone Encounter - Zeny Hollis LPN - 03/23/2024 2:05 PM EDT [facility] ER calling they would like pcp to call them back at [phone] to speak to the ER [facility]06-17-[facility] Telephone encounter Note* Telephone Encounter - Diana Tate PA-C - 03/23/2024 11:33 AM EDT Agree Herman Tate PA-C [facility]06-17-[facility] Miscellaneous Notes* Telephone Encounter - Diana Tate PA-C - 03/23/2024 11:33 AM EDT Agree Herman Tate PA-C * Telephone Encounter - Courtney Klein RN - 03/23/2024 8:12 AM EDT Patient calls for episodes of coughing up blood starting Saturday with tablespoon and less now but still more than streaks and moderate SOB. Nurse triage completed. Protocol recommends ED now. Patient reports he is currently on his way home from [place] after having an US of femoral artery completed.Patient agreeable to ER but not immediately. Recommended patient have someone drive him and he reports he is currently driving himself. Care advice reviewed. Patient verbalizes understanding. Reason for Disposition [1] MODERATE difficulty breathing (e.g., speaks in phrases, SOB even at rest, pulse 100-120) AND [2] still present when not coughing Answer Assessment - Initial Assessment Questions 1. ONSET: Saturday morning a couple of times and has continued since. 2. SEVERITY:Patient reports that he 3. SPUTUM: Clear and Blood 4. HEMOPTYSIS:Tablespoon to start. Not as much but can still see it. 5. DIFFICULTY BREATHING: - MODERATE: SOB at rest, SOB with minimal exertion and prefers to sit, cannot lie down flat, speaks in phrases, mild retractions, audible wheezing, pulse 100-120. Patient reports SOB with speaking. 6. FEVER:No 7. CARDIAC HISTORY:CAD, Pericarditis, HTN, Femoral Bypass 2018. US completed this morning to check patency. Patient believes it was ok. 8. LUNG HISTORY:Pulmonary HTN, COPD, HX of DVT 9. PE RISK FACTORS: HX of DVT No recent major surgery, recent prolonged travel, bedridden 10. OTHER SYMPTOMS: Wheezing. No runny nose or chest pain Protocols used: Coughing Up [id number] documented in this encounterMi[facility]06-17-2024 Telephone encounter Note * Telephone Encounter - Courtney Klein RN - 03/23/2024 8:12 AM EDT Patient calls for episodes of coughing up blood starting Saturday with tablespoon and less now but still more than streaks and moderate SOB. Nurse triage completed. Protocol recommends ED now. Patient reports he is currently on his way home from [place] after having an US of femoral artery completed.Patient agreeable to ER but not immediately. Recommended patient have someone drive him and he reports he is currently driving himself. Care advice reviewed. Patient verbalizes understanding. Reason for Disposition [1] MODERATE difficulty breathing (e.g., speaks in phrases, SOB even at rest, pulse 100-120) AND [2] still present when not coughing Answer Assessment - Initial Assessment Questions 1. ONSET: Saturday morning a couple of times and has continued since. 2. SEVERITY:Patient reports that he 3. SPUTUM: Clear and Blood 4. HEMOPTYSIS:Tablespoon to start. Not as much but can still see it. 5. DIFFICULTY BREATHING: - MODERATE: SOB at rest, SOB with minimal exertion and prefers to sit, cannot lie down flat, speaks in phrases, mild retractions, audible wheezing, pulse 100-120. Patient reports SOB with speaking. 6. FEVER:No 7. CARDIAC HISTORY:CAD, Pericarditis, HTN, Femoral Bypass 2018. US completed this morning to check patency. Patient believes it was ok. 8. LUNG HISTORY:Pulmonary HTN, COPD, HX of DVT 9. PE RISK FACTORS: HX of DVT No recent major surgery, recent prolonged travel, bedridden 10. OTHER SYMPTOMS: Wheezing. No runny nose or chest pain Protocols used: Coughing Up [id number] [facility]05-07-[facility]24 NoteHNO ID: [id number] Author: KHANH MUSTAFA APRN.HARDBOARD PANEL PRINTER Service: ? Author Type: Nurse Practitioner Type: Progress Notes Filed: 02/11/2024 12:07 Note Text: Subjective Cough Associated symptoms include shortness of breath and wheezing. Pertinent negatives include no chest pain, no chills and no myalgias. Marian Koch is a 53 year old male who presents with cough, shortness of breath x 3 weeks and right hand swelling for months. He has a history of COPD and has been using his inhalers as prescribed. He denies fever. Cough is productive of sputum which is increased in volume and viscosity over his normal. He denies chest pain. Right hand swelling x several months. Has an AV fistula in right arm. He has an appointment for an ultrasound on both arms on 02/25 and is scheduled to see a vascular surgeon at [facility]. He denies pain in the arm; no injury. Review of Systems Constitutional: Negative for chills and fever. Respiratory: Positive for cough, sputum production, shortness of breath and wheezing. Negative for hemoptysis. Cardiovascular: Negative for chest pain. Musculoskeletal: Negative for falls, joint pain and myalgias. See HPI BP 122/70 Pulse 76 Temp 37 ?C (98.6 ?F) Resp 20 Wt 65 kg (143 lb 4.8 oz) SpO2 93% BMI 23.85 kg/m? PAST MEDICAL HISTORY Diagnosis Date CAD [...] not accurate. 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 On Sensipar in remote past. Kidney dialysis 1988, and 2000 Neurogenic bladder VIC (obstructive sleep apnea) 08/04/2011 declines CPAP Pulmonary embolism ([facility]) 10-12 years ago Pulmonary nodules Foreign body reaction in pulmonary vasculature, ? cause. Extensive evaluation ruled out vasculitis, fungal inffection, pneumoconiosis. May have been from gortex graft .Resulted in multiple pulmonary nodules. Radiculopathy, lumbar region 11/28/2016 Renal failure 02/20/2010 Renal failure, chronic, stage 3 (moderate) ([facility]) folllowing renal transplant Renal stones Steroid long-term use Transplant kidney 1993 and 2009 Failed in 2000(right in ', removed in ; left ') PAST SURGICAL HISTORY Procedure Laterality Date CABG (4) VEIN GRAFTS AND ARTERIAL GRAFT(S) 2004 COLONOSCOPY FLX DX W/COLLJ SPEC WHEN PFRMD 06/14/[address] Dodge PERICARDIAL WINDOW, DRAINAGE 1991 RENAL ALLOTRANSPLANTATION W/ GRAFT W/O RECIPIENT NEPHRECTOMY 1993, repeat 2019. ALLERGIES Bee Sting and Darvocet-N 100 [Propoxyphene N-Acetaminophen] MEDICATIONS albuterol HFA (PROVENTIL HFA, VENTOLIN HFA) 90 mcg/actuation inhalerInhale 2 Puffs as instructed every 6 hours as needed.Disp: 6.7 EachRfl: 5 tacrolimus ER (ASTAGRAF XL) 1 mg capsuleTake 1 capsule by mouth every 24 hours. 0.5mg dailyDisp: Rfl: ipratropium-albuterol (DUONEB) 0.5 mg-3 mg(2.5 mg base)/3 mL nebuInhale 3 mL as instructed every 6 hours as needed for wheezing/shortness of breath.Disp: 360 mLRfl: 1 gabapentin (NEURONTIN) 300 mg capsuleTake 1 capsule by mouth three times a day for 90 days.Disp: 90 capsuleRfl: 2 omeprazole (PRILOSEC) 40 mg capsuleTake 1 capsule by mouth once daily.Disp: 30 capsuleRfl: 5 sulfamethoxazole-trimethoprim (BACTRIM) 400-80 mg per tabletTake 1 tablet by mouth every afternoon.Disp: Rfl: Fluorouracil 5 % creamDisp: Rfl: alendronate (FOSAMAX) 70 mg tabletTake 1 tablet by mouth one time a week. Take with a full glass of water, on an empty stomach; do NOT lie down for 30minutes.Disp: 12 tabletRfl: 3 atorvastatin (LIPITOR) 80 mg tabletTake 1 tablet by mouth daily at bedtime.Disp: 90 tabletRfl: 3 CARDURA XL 8 mg 24 hr tabletTAKE 1 TABLET BY MOUTH EVERY DAY WITH BREAKFASTDisp: 90 tabletRfl: 3 predniSONE (DELTASONE) 5 mg tabletTake 1 tablet by mouth once jose (more content not included)...[facility]05-07-[facility] History of Present illness Narrative* Khanh Mustafa APRN.HARDBOARD PANEL PRINTER - 02/11/2024 11:54 AM EDT Images from the original note were not included. Subjective Cough Associated symptoms include shortness of breath and wheezing. Pertinent negatives include no chest pain, no chills and no myalgias. Marian Koch is a 53 year old male who presents with cough, shortness of breath x 3 weeks and right hand swelling for months. He has a history of COPD and has been using his inhalers as prescribed. He denies fever. Cough is productive of sputum which is increased in volume and viscosity over his normal. He denies chest pain. Right hand swelling x several months. Has an AV fistula in right arm. He has an appointment for an ultrasound on both arms on 02/25 and is scheduled to see a vascular surgeon at [facility]. He denies pain in the arm; no injury. Review of Systems Constitutional: Negative for chills and fever. Respiratory: Positive for cough, sputum production, shortness of breath and wheezing. Negative for hemoptysis. Cardiovascular: Negative for chest pain. Musculoskeletal: Negative for falls, joint pain and myalgias. See HPI BP 122/70 Pulse 76 Temp 37 C (98.6 F) Resp 20 Wt 65 kg (143 lb 4.8 oz) SpO2 93% BMI 23.85 kg/m PAST MEDICAL HISTORY Diagnosis Date CAD [...] AI 1-2+ Claudication of both lower extremities ([facility]) 08/22/2017 02/05/[address] [place] [address] Jauregui: no stenosis left fem-pop bypass. Unable to get CHEL due to non-compressible vesels11/12/[address] Zavala [facility]: RIGHT: resting CHEL > 1.81, non-compressible arteries; TBI0.40 = PAD; Right ankle: Moderate disease at rest. Right iliofemoral disease. Severe disease noted,post exercise, by tracings. LEFT SIDE: resting CHEL 1.81, non-compressible vessels, CHEL not accurate. COPD (chronic obstructive pulmonary disease) (HCC) Coronary atherosclerosis of unspecified type of vessel, te-moak or graft Coronary artery disease Current mild episode of major depressive disorder ([facility]) 02/05/2019 Depression 03/07/2012 DVT (deep venous thrombosis) ([facility]) End stage renal disease ([facility]) Due to blocked ureter as child GERD (gastroesophageal reflux disease) 03/05/2014 Hyperhomocysteinemia ([facility]) 12/08/2017 Hyperparathyroidism ([facility]) 12/08/2017 Secondary to renal failure. On Sensipar in remote past. Kidney dialysis 1988, and 2000 Neurogenic bladder VIC (obstructive sleep apnea) 08/04/2011 declines CPAP Pulmonary embolism ([facility]) 10-12 years ago Pulmonary nodules Foreign body reaction in pulmonary vasculature, ? cause. Extensive evaluation ruled out vasculitis, fungal inffection, pneumoconiosis. May have been from gortex graft .Resulted in multiple pulmonarynodules. Radiculopathy, lumbar region 11/28/2016 Renal failure 02/20/2010 [...] Sting and Darvocet-N 100 [Propoxyphene N-Acetaminophen] MEDICATIONS albuterol HFA (PROVENTIL HFA, VENTOLIN HFA) 90 mcg/actuation inhaler^Inhale 2 Puffs as instructed every 6 hours as needed.^Disp: 6.7 Each^Rfl: 5 tacrolimus ER (ASTAGRAF XL) 1 mg capsule^Take 1 capsule by mouth every 24 hours. 0.5mg daily^Disp: ^Rfl: ipratropium-albuterol (DUONEB) 0.5 mg-3 mg(2.5 mg base)/3 mL nebu^Inhale 3 mL as instructed every 6hours as needed for wheezing/shortness of breath.^Disp: 360 mL^Rfl: 1 gabapentin (NEURONTIN) 300 mg capsule^Take 1 capsule by mouth three times a day for 90 days.^Disp: 90 capsule^Rfl: 2 omeprazole (PRILOSEC) 40 mg capsule^Take 1 capsule by mouth once daily.^Disp: 30 capsule^Rfl: 5 sulfamethoxazole-trimethoprim (BACTRIM) 400-80 mg per tablet^Take 1 tablet by mouth every afternoon.^Disp: ^Rfl: Fluorouracil 5 % cream^^Disp: ^Rfl: alendronate (FOSAMAX) 70 mg tablet^Take 1 tablet by mouth one time a week. Take with a full glass of water, on an empty stomach; do NOT lie down for 30minutes.^Disp: 12 tablet^Rfl: 3 atorvastatin (LIPITOR) 80 mg tablet^Take 1 tablet by mouth daily at bedtime.^Disp: 90 tablet^Rfl: 3 CARDURA XL 8 mg 24 hr tablet^TAKE 1 TABLET BY MOUTH EVERY DAY WITH BREAKFAST^Disp: 90 tablet^Rfl: 3 predniSONE (DELTASONE) 5 mg tablet^Take 1 tablet by mouth once daily.^Disp: ^Rfl: amLODIPine (NORVASC) 5 mg tablet^Take 10 mg by mouth once daily.^Disp: ^Rfl: carvedilol (COREG) 25 mg tablet^Take 1 tablet by mouth twice daily with meals.^Disp: ^Rfl: 3 acetaminophen (TYLENOL) 500 mg tablet^Take 500 mg by mouth every 8 hours as needed.^Disp: ^Rfl: mycophenolate mofetil (CELLCEPT) 250 mg capsule^Take 500 mg by mouth twice daily. ^Disp: ^Rfl: 0 magnesium oxide 400 mg cap^Take 1 capsule by mouth twice daily.^Disp: ^Rfl: 0 ASPIRIN 81 MG TAB^Take one(1) tablet daily.^Disp: 0^Rfl: 0 amoxicillin-clavulanate potassium (AUGMENTIN) 875-125 mg per tablet^Take 1 tablet by mouth two times a day for 10 days.^Disp: 20 tablet^Rfl: 0 predniSONE (DELTASONE) 10 mg tablet^Take 4 tabs daily for 3 days, then 2 tabs daily for 3 days, then 1 tab daily for 3 days with food.^Disp: 21 tablet^Rfl: 0 FAMILY HISTORY Problem Relation Age of Onset Arthritis Father Cancer Father Lung, 1990. Heart Father Heart Mother 2012. Social History Tobacco Use Smoking status: Former Packs/day: 1.25 Years: 15.00 Additional pack years: 0.00 Total pack years: 18.75 Types: Cigarettes Quit date: 09/06/2011 Years since quittin.4 Smokeless tobacco: Current Types: Chew Vaping Use Vaping Use: Never used Substance Use Topics Alcohol use: No Drug use: No Objective Physical Exam Vitals and nursing note reviewed. Constitutional: Appearance: Normal appearance. Cardiovascular: Rate and Rhythm: Normal rate and regular rhythm. Heart sounds: Normal heart sounds. Pulmonary: Effort: Pulmonary effort is normal. No respiratory distress. Breath sounds: Examination of the right-lower field reveals wheezing. Examination of the left-lowerfield reveals wheezing. Wheezing present. No rales. Musculoskeletal: Arms: Skin: General: Skin is warm and dry. Neurological: Mental Status: He is alert. ASSESSMENT/PLAN: 1. Persistent cough for 3 weeks or longer - ICD9: 786.2, ICD10: R05.3 (primary diagnosis) - XR CHEST 2V FRONTAL/LAT IMPRESSION: Stable radiographic appearance of the chest, as described. Glass Vial Bending Conveyor Feeder: RADHA Transcribe Date/Time: Feb 11 2024 11:24A Dictated by : JOAO CARROLL MD 2. COPD exacerbation (HCC) - ICD9: 491.21, ICD10: J44.1 - AMOXICILLIN 875 MG-POTASSIUM CLAVULANATE 125 MG TABLET - PREDNISONE 10 MG TABLET 3. Swelling of hand - ICD9: 729.81, ICD10: M79.89 - keep hand elevated - consider use of compression sleeve - CONSULT TO VASCULAR SURGERY - Follow-up with your PCP in 3-5 days if symptoms have not improved or sooner if symptoms worsen - Discussed red flags and need for immediate medical evaluation if any occur. - Discussed supportive care treatment with fluids, rest and analgesia. - Discussed expected course of illness Khanh Mustafa APRN.HARDBOARD PANEL PRINTER documented in this encounter[facility]05-07-[facility]24 Instructions* Patient Instructions* Khanh Mustafa APRN.HARDBOARD PANEL PRINTER - 02/11/2024 11:50 AM EDT ASSESSMENT/PLAN: 1. Persistent cough for 3 weeks or longer - ICD9: 786.2, ICD10: R05.3 (primary diagnosis) - XR CHEST 2V FRONTAL/LAT IMPRESSION: Stable radiographic appearance of the chest, as described. Glass Vial Bending Conveyor Feeder: RADHA Transcribe Date/Time: Feb 11 2024 11:24A Dictated by : JOAO CARROLL MD 2. COPD exacerbation (HCC) - ICD9: 491.21, ICD10: J44.1 - AMOXICILLIN 875 MG-POTASSIUM CLAVULANATE 125 MG TABLET - PREDNISONE 10 MG TABLET 3. Swelling of hand - ICD9: 729.81, ICD10: M79.89 - keep hand elevated - consider use of compression sleeve - CONSULT TO VASCULAR SURGERY - Follow-up with your PCP in 3-5 days if symptoms have not improved or sooner if symptoms worsen - Discussed red flags and need for immediate medical evaluation if any occur. - Discussed supportive care treatment with fluids, rest and analgesia. - Discussed expected course of illness Khanh Mustafa APRN.HERON [facility] History of Present illness Narrative* Mora Mcallister RT(R) - 02/11/2024 11:10 AM EDT Radiology Service Progress Note PATIENT NAME: Marian Koch DATE OF SERVICE: February 11, 2024 TIME: 11:13 AM PATIENT IDENTITY VERIFICATION COMPLETED USING TWO (2) IDENTIFIERS: Name and Date of confirmedby patient verbally. FALL SCREENING: Has the patient had 2 falls in the last year or 1 fall with injury or currently using an Ambulatory Assistive Device (Walker, Cane, Wheelchair, Crutches, etc.)? No PATIENT GENDER DATA: Male PATIENT RELEVANT IMPLANT DATA REVIEWED: Yes PATIENT PRESENTS WITH AN IMPLANTABLE OR ATTACHED SECOND OFFICER: No RADIOLOGY DEPARTMENT: General X-ray: Exam(s) Completed: Chest X-Ray PERIPHERAL IV DATA: Not applicable SIGNED BY: RT Jin(Meet) February 11, 2024 11:13 AM documented in this [facility]24 NoteHNO ID: [id number] Author: MORA MCALLISTER RT(Meet) Service: ? Author Type: Plant Propagator Type: Progress Notes Filed: 02/11/2024 11:18 Note Text: Radiology Service Progress Note PATIENT NAME: Marian Koch DATE OF SERVICE: February 11, 2024 TIME: 11:13 AM PATIENT IDENTITY VERIFICATION COMPLETED USING TWO (2) IDENTIFIERS: Name and Date of confirmed by patient verbally. FALL SCREENING: Has the patient had 2 falls in the last year or 1 fall with injury or currently using an Ambulatory Assistive Device (Walker, Cane, Wheelchair, Crutches, etc.)? No PATIENT GENDER DATA: Male PATIENT RELEVANT IMPLANT DATA REVIEWED: Yes PATIENT PRESENTS WITH AN IMPLANTABLE OR ATTACHED SECOND OFFICER: No RADIOLOGY DEPARTMENT: General X-ray: Exam(s) Completed: Chest X-Ray PERIPHERAL IV DATA: Not applicable SIGNED BY: RT Jin(R) February 11, 2024 11:13 [facility]04-29-2024 NoteHNO ID: [id number] Author: MARIA ELENA DOCKERY MD Service: ? Author Type: Physician Type: Progress Notes Filed: 02/03/2024 17:03 Note Text: Maria Elena Dockery MD Interventional Cardiology [address] [place] [address] Chief Complaint Patient presents with: Follow Up HISTORY OF PRESENT ILLNESS: Mr. Koch is a 53 year old male seen in my office today for follow-up assessment and management of his cardiac condition patient has very extensive cardiac history with longstanding history of severe three-vessel coronary artery disease and bypass surgery in 2005 quadruple bypass consisted of a ROBERT to the LAD vein graft obtuse marginal vein graft to the ramus and vein graft to the PDA of the right coronary artery he did very well from the cardiac point of view patient had longstanding history of being on dialysis he had failed AV fistula in the left arm and the right arm eventually 14 years ago he had a kidney transplant baseline creatinine is 1.6 he has been off hemodialysis peritoneal dialysis since then maintained on 3 immunosuppressive therapy He denies any angina or chest pain or shortness of breath no signs or symptoms of congestive heart failure his major complaint is swelling in the right arm complaint compared to the left patient had prior history of stenting of the venous system due to venous obstruction in the right arm Cardiac Risk Factors age (male over 45, female over 55), hyperlipidemia, history of smoking, hypertension, immunosuppression . PAST MEDICAL HISTORY Diagnosis Date CAD (coronary [...] not accurate. 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 On Sensipar in remote past. Kidney dialysis 1988, and 2000 Neurogenic bladder VIC (obstructive sleep apnea) 08/04/2011 declines CPAP Pulmonary embolism ([facility]) 10-12 years ago Pulmonary nodules Foreign body reaction in pulmonary vasculature, ? cause. Extensive evaluation ruled out vasculitis, fungal inffection, pneumoconiosis. May have been from gortex graft .Resulted in multiple pulmonary nodules. Radiculopathy, lumbar region 11/28/2016 Renal failure 02/20/2010 Renal failure, chronic, stage 3 (moderate) ([facility]) folllowing renal transplant Renal stones Steroid long-term [...] Smoking status: Former Packs/day: 1.25 Years: 15.00 Additional pack years: 0.00 Total pack years: 18.75 Types: Cigarettes Quit date: 09/06/2011 Years since quittin.4 Smokeless tobacco: Current Types: Chew Vaping Use Vaping Use: Never used Substance Use Topics Alcohol use: No Drug use: No ALLERGIES Allergen Reactions Bee Sting Hives, Swelling Darvocet-N 100 [Pro* Hives Medications: Current Outpatient Medications Medication Sig Dispense Refill albuterol HFA (PROVENTIL HFA, VENTOLIN HFA) 90 mcg/actuation inhaler Inhale 2 Puffs as instructed every 6 hours as needed. 6.7 Each 5 tacrolimus ER (ASTAGRAF XL) 1 mg capsule Take 1 capsule by mouth every 24 hours. 0.5mg daily ipratropium-albuterol (DUONEB) 0.5 mg-3 mg(2.5 mg base)/3 mL nebu Inhale 3 mL as instructed every 6 hours as needed for wheezing/shortness of breath. 360 mL 1 gabapentin (NEURONTIN) 300 mg (more content not included)...[facility]04-29-2024 History of Present illness Narrative* Maria Elena Dockery MD - 02/03/2024 4:57 PM EDT Images from the original note were not included. Maria Elena Dockery MD Interventional Cardiology [address] [place], [place] [id number] Chief Complaint Patient presents with: Follow Up HISTORY OF PRESENT ILLNESS: Mr. Koch is a 53 year old male seen in my office today for follow-up assessment and management of his cardiac condition patient has very extensive cardiac history with longstanding history of severe three-vessel coronary artery disease and bypass surgery in 2005 quadruple bypass consisted of a ROBERT to the LAD vein graft obtuse marginal vein graft to the ramus and vein graft to the PDA of the right coronary artery he did very well from the cardiac point of view patient had longstanding history of being on dialysis he had failed AV fistula in the left arm and the right arm eventually 14 years ago he had a kidney transplant baseline creatinine is 1.6 he has been off hemodialysis peritoneal dialysis since then maintained on 3 immunosuppressive therapy He denies any angina or chest pain or shortness of breath no signs or symptoms of congestive heart failure his major complaint is swelling in the right arm complaint compared to the left patient had prior history of stenting of the venous system due to venous obstruction in the right arm Cardiac Risk Factors age (male over 45, female over 55), hyperlipidemia, history of smoking, hypertension, immunosuppression . PAST MEDICAL HISTORY Diagnosis Date CAD (coronary [...] AI 1-2+ Claudication of both lower extremities ([facility]) 08/22/2017 02/05/[address] [place] [address] Jauregui: no stenosis left fem-pop bypass. Unable to get CHEL due to non-compressible vesels11/12/[address] Zavala [facility]: RIGHT: resting CHEL > 1.81, non-compressible arteries; TBI0.40 = PAD; Right ankle: Moderate disease at rest. Right iliofemoral disease. Severe disease noted,post exercise, by tracings. LEFT SIDE: resting CHEL 1.81, non-compressible vessels, CHEL not accurate. 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 On Sensipar in remote past. Kidney dialysis 1988, and 2000 Neurogenic bladder VIC (obstructive sleep apnea) 08/04/2011 declines CPAP Pulmonary embolism ([facility]) 10-12 years ago Pulmonary nodules Foreign body reaction in pulmonary vasculature, ? cause. Extensive evaluation ruled out vasculitis, fungal inffection, pneumoconiosis. May have been from gortex graft .Resulted in multiple pulmonarynodules. Radiculopathy, lumbar region 11/28/2016 Renal failure 02/20/2010 Renal failure, chronic, stage 3 (moderate) ([facility]) folllowing renal transplant Renal stones Steroid long-term [...] Smoking status: Former Packs/day: 1.25 Years: 15.00 Additional pack years: 0.00 Total pack years: 18.75 Types: Cigarettes Quit date: 09/06/2011 Years since quittin.4 Smokeless tobacco: Current Types: Chew Vaping Use Vaping Use: Never used Substance Use Topics Alcohol use: No Drug use: No ALLERGIES Allergen Reactions Bee Sting Hives, Swelling Darvocet-N 100 [Pro* Hives Medications: Current Outpatient Medications Medication Sig Dispense Refill albuterol HFA (PROVENTIL HFA, VENTOLIN HFA) 90 mcg/actuation inhaler Inhale 2 Puffs as instructed every 6 hours as needed. 6.7 Each 5 tacrolimus ER (ASTAGRAF XL) 1 mg capsule Take 1 capsule by mouth every 24 hours. 0.5mg daily ipratropium-albuterol (DUONEB) 0.5 mg-3 mg(2.5 mg base)/3 mL nebu Inhale 3 mL as instructed every 6hours as needed for wheezing/shortness of breath. 360 mL 1 gabapentin (NEURONTIN) 300 mg capsule Take 1 capsule by mouth three times a day for 90 days. 90 capsule 2 omeprazole (PRILOSEC) 40 mg capsule Take 1 capsule by mouth once daily. 30 capsule 5 sulfamethoxazole-trimethoprim (BACTRIM) 400-80 mg per tablet Take 1 tablet by mouth every afternoon. alendronate (FOSAMAX) 70 mg tablet Take 1 tablet by mouth one time a week. Take with a full glass of water, on an empty stomach; do NOT lie down for 30minutes. 12 tablet 3 atorvastatin (LIPITOR) 80 mg tablet Take 1 tablet by mouth daily at bedtime. 90 tablet 3 CARDURA XL 8 mg 24 hr tablet TAKE 1 TABLET BY MOUTH EVERY DAY WITH BREAKFAST 90 tablet 3 predniSONE (DELTASONE) 5 mg tablet Take 1 tablet by mouth once daily. amLODIPine (NORVASC) 5 mg tablet Take 10 mg by mouth once daily. carvedilol (COREG) 25 mg tablet Take 1 tablet by mouth twice daily with meals. 3 acetaminophen (TYLENOL) 500 mg tablet Take 500 mg by mouth every 8 hours as needed. mycophenolate mofetil (CELLCEPT) 250 mg capsule Take 500 mg by mouth twice daily. 0 magnesium oxide 400 mg cap Take 1 capsule by mouth twice daily. 0 ASPIRIN 81 MG TAB Take one(1) tablet daily. 0 0 Fluorouracil 5 % cream APPLY TO LEFT LOWER LIP 2X DAILY FOR 2 WEEKS. WASH HANDS IMMEDIATELY AFTER APPLYING. (Patient not taking: Reported on 02/03/2024) Current Facility-Administered Medications Medication Dose Route Frequency [...] does not have insomnia. Physical Examination: Vitals:BP 122/67 Pulse 71 Ht 5' 5 (1.65m) Wt 144 lb 3.2 oz (65.4kg) SpO2 98% BMI 24.00 kg/(m^2). BP w/Orthostatic Vitals Date and Time Orthostatic BP Orthostatic Pulse BP Pulse BP Position BP Site BP Cuff Size 02/03/24 1516 -- -- 122/67 71 -- -- -- Last 2 Encounter Wt Readings: Date: Wt: 02/03/2024 65.4 kg (144 lb 3.2 oz) 01/02/2024 65.5 kg (144 lb 6.4 oz) Physical Exam Vitals reviewed. Constitutional: General: He is not in acute distress. Appearance: He is not diaphoretic. HENT: Head: Normocephalic and atraumatic. Right Ear: External ear normal. Left Ear: External ear normal. Nose: Nose normal. Mouth/Throat: Pharynx: Oropharynx is clear. Eyes: General: Right eye: No discharge. Left [...] or rales. Chest: Chest wall: No tenderness. Musculoskeletal: General: Swelling present. Normal range of motion. Cervical back: Normal range of motion and neck supple. Skin: General: Skin is warm and dry. Neurological: Mental Status: He is alert and oriented to person, place, and time. Psychiatric: Mood and Affect: Mood normal. Thought Content: Thought content normal. Judgment: Judgment normal. Pertinent Labs: CBC: Hemoglobin (g/dL) Date [...] results found for: TSHREFL Prior Cardiac Testing none Assessment and Plan: 53 years old gentleman prior history of severe three-vessel coronary artery disease bypass surgery significant peripheral vascular disease ASSESSMENT/PLAN: 1. Peripheral vascular disease (HCC) - ICD9: 443.9, ICD10: I73.9 (primary diagnosis) Significant upper extremity and lower extremity peripheral vascular disease Major complaint swelling in the right arm compared to the left with prior history of stenting of the venous system suggestive of stent thrombosis or stenosis Schedule for upper extremity venous and arterial duplex for assessment of the venous and arterial system Both AV fistula both arms are nonfunctional \Patient had femoral to femoral bypass for his peripheral vascular disease many years ago \ - US ARM VEIN DVT [facility] - US ARM ARTERIAL [facility] - CONSULT TO VASCULAR SURGERY 2. Claudication of both lower extremities (HCC) - ICD9: 443.9, ICD10: I73.9 Significant peripheral vascular disease need evaluation by vascular surgery 3. Coronary artery disease involving te-moak coronary artery of te-moak heart without angina pectoris- ICD9: 414.01, ICD10: I25.10 Stable cardiac condition with no angina continue medical therapy 4. Mixed hyperlipidemia - ICD9: 272.2, ICD10: E78.2 - Controlled - Continue current medications - Counseled on healthy diet and regular exercise Maria Elena Dockery MD Follow up plannin months Electronically signed by Maria Elena Dockery MD on February 03, 2024, 4:57 PM The above note was partially created using a dictation recognition software. A reasonable attempt has been made to correct any errors. documented [facility] this [facility]04-[facility] History of Present illness Narrative* Matthew Sellers MD - 01/15/2024 8:20 AM EDT Images from the original note were not included. TRANSPLANT NEPHROLOGY : OUTPATIENT CLINIC NOTE SERVICE DATE : 01/15/2024 REASON FOR VISIT/CHIEF COMPLAINT: S/P TRANSPLANT SURGERY IMMUNOSUPPRESSIVE MEDICATION MANAGEMENT BLOOD PRESSURE MANAGEMENT HPI: Mr. Koch is a 53 y.o. 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 His first transplant occurred in 1993 and lasted until 1999, then heunderwent a 2nd kidney transplant in 2009 from a donor after cardiac . He had delayed graft function after 2nd transplant and has a baseline cr of 1.5-2.0. Patient is here to follow up S/P [...] Social Determinants of Health Financial Resource Strain: Low Risk (09/24/2023) [facility] Overall Financial Resource Strain (CARDIA) Difficulty of Paying Living Expenses: Not hard at all Food Insecurity: No Food Insecurity (09/24/2023) [facility] Hunger Vital Sign Worried About Running Out of Food in the Last Year: Never true Ran Out of Food in the Last Year: Never true Transportation Needs: No Transportation Needs (09/24/2023) [facility] PRAPARE - Transportation Lack of Transportation (Medical): No Lack of Transportation (Non-Medical): No Physical Activity: Insufficiently Active (09/24/2023) [facility] Exercise Vital Sign Days of Exercise per Week: 2 days Minutes of Exercise per Session: 30 min Stress: Stress Concern Present (09/24/2023) Received from [facility] [employer] [facility] - Occupational Stress Questionnaire Feeling of Stress : To some extent Social Connections: Moderately Isolated (09/24/2023) Re[facility] Social Connection and Isolation Panel [NHANES] Frequency of Communication with Friends and Family: Three times a week Frequency of Social Gatherings with Friends and Family: Once a week Attends [employer] Services: Never Active Member of Clubs or Organizations: No Attends Club or Organization Meetings: Never Marital Status: Intimate Partner Violence: Not on file Housing Stability: Low Risk (09/24/2023) [facility] Housing Stability Vital Sign Unable to Pay for Housing in the Last Year: No Number of Places Lived in the Last Year: 1 Unstable Housing in the Last Year: No FAMILY HISTORY: No family history on file. MEDICATION LIST: Current Outpatient Medications Medication Instructions amLODIPine (NORVASC) 5 mg, oral, Daily atorvastatin (LIPITOR) 80 mg, oral, Daily carvedilol (COREG) 25 mg, oral, 2 times daily doxazosin (CARDURA) 8 mg, oral, Nightly mycophenolate (CELLCEPT) 500 mg, oral, 2 times daily predniSONE (DELTASONE) 5 mg, oral, Daily Prolia 60 mg, subcutaneous, Every 6 months sulfamethoxazole-trimethoprim (Bactrim) 400-80 mg tablet 1 tablet, oral, Daily tacrolimus ER (ENVARSUS XR) 1.5 mg, oral, Daily ALLERGY Allergies Allergen Reactions Darvocet A500 [Propoxyphene N-Acetaminophen] Hives PHYSICAL EXAM: Visit Vitals BP 165/67 Pulse 70 Temp 36.7 C (98 F) (Temporal) Wt 64.9 kg (143 lb) SpO2 98% BMI 27.93 kg/m BSA 1.66 m Vital signs - reviewed. Acceptable BP at [...] LABS: Lab Results Component Value Date WBC 6.9 01/13/2024 HGB 10.8 (L) 01/13/2024 HCT 34.5 (L) 01/13/2024 PLT 124 (L) 01/13/2024 NA 138 01/13/2024 K 4.8 01/13/2024 CL 105 01/13/2024 CREATININE 1.57 (H) 01/13/2024 BUN 23 01/13/2024 CO2 24 01/13/2024 par ASSESSMENT AND PLAN: Mr. Koch is a 53 y.o. male who is here for follow up s/p kidney transplant. TRANSPLANT DATE: 03/18/2010 (Kidney), 02/27/1994 (Kidney) 1. ESRD S/P kidney transplant - Creatinine last check was : Lab Results Component Value Date CREATININE 1.57 (H) 01/13/2024 Creatinine clearance cannot be calculated (Unknown ideal weight.) - Renal allograft function is stable. -Random urine protein/creatinine ratio is normal -Ensure adequate hydration - Avoid nephrotoxic medications, NSAIDs, and IV contrast. 2. Immunosuppression -Tacrolimus level last check was at goal. -He stated his skin cancer got better and would stay on Astagraf XL. -Continue current immunosuppression regimen. 3. Electrolytes Lab Results Component Value Date GLUCOSE 80 01/13/2024 CALCIUM 10.2 01/13/2024 NA 138 01/13/2024 K 4.8 01/13/2024 CO2 24 01/13/2024 CL 105 01/13/2024 BUN 23 01/13/2024 CREATININE 1.57 (H) 01/13/2024 -Acceptable from last lab drawn 4. Hypertension Blood Pressures 01/15/2024823 BP: 165/67 -Home BP had been acceptable -Encourage to monitor home BP -Continue current anti hypertensive medication 5. Bone Mineral Disease/Osteoporosis Lab Results Component Value Date PTH 167.1 (H) 01/13/2024 CALCIUM 10.2 01/13/2024 PHOS 3.2 01/13/2024 VITD25 17 (L) 01/13/2024 -check VIT D, PTH with next lab - Consider DEXA every 2-3 years , defer to PCP 6.Anemia Lab Results Component Value Date WBC 6.9 01/13/2024 HGB 10.8 (L) 01/13/2024 HCT 34.5 (L) 01/13/2024 MCV 92 01/13/2024 PLT 124 (L) 01/13/2024 -asymptomatic - Continue to monitor -check iron studies and ferritin. Will consider RICK as needed. - No indications for blood transfusion 7.Health maintenance and vaccination - Flu shot during flu season annually - Cancer screening is up to date per the patient Lab : Routine transplant lab ( CBC, RFP, and anti-rejection trough level ) every 3 months Additional labs: VIT D, PTH with next lab UPC per protocol. Additional Plan : Increase Vit D RTC 6 month(s) Continue to monitor skin cancer and consider switching to mTORi if needed. Matthew Sellers Transplant Nephrology [facility] Work Phone: 1(547) 295-716004-09-2024 Telephone encounter Note* Telephone Encounter - Lita Emanuel - 01/14/2024 3:01 PM EDT 1st attempt made by central scheduling on 06/12/23. Final notice letter sent 01/14/24. [id number] Miscellaneous Notes* Telephone Encounter - Lita Emanuel - 01/14/2024 3:01 PM EDT 1st attempt made by central scheduling on 06/12/23. Final notice letter sent 01/14/24. * Telephone Encounter - Ira Puentes - 01/02/2024 11:30 AM EDT LVM and provided patient with CS number and Vascular's number so he can call and schedule his PVR testing and/or we can schedule it for him if he calls the office. documented in this [facility]03-28-2024 Telephone encounter Note* Telephone Encounter - Ira Puentes - 01/02/2024 11:30 AM EDT LVM and provided patient with CS number and Vascular's number so he can call and schedule his PVR testing and/or we can schedule it for him if he calls the office. [facility] [id number] Miscellaneous Notes* Telephone Encounter - Ira Puentes - 01/02/2024 11:30 AM EDT LVM and provided patient with CS number and Vascular's number so he can call and schedule his PVR testing and/or we can schedule it for him if he calls the office. documented in this [facility]03[facility] History of Present illness Narrative* Jesenia Benedict, RT(R) - 01/02/2024 9:50 AM EDT Radiology Service Progress Note PATIENT NAME: Marian Koch DATE OF SERVICE: January 02, 2024 TIME: 9:46 AM PATIENT IDENTITY VERIFICATION COMPLETED USING TWO (2) IDENTIFIERS: Name and Date of confirmedby patient verbally. FALL SCREENING: Has the patient had 2 falls in the last year or 1 fall with injury or currently using an Ambulatory Assistive Device (Walker, Cane, Wheelchair, Crutches, etc.)? No PATIENT GENDER DATA: Male PATIENT RELEVANT IMPLANT DATA REVIEWED: Not Applicable PATIENT PRESENTS WITH AN IMPLANTABLE OR ATTACHED SECOND OFFICER: No RADIOLOGY DEPARTMENT: General X-ray: Exam(s) Completed: Lower Extremity X- Ray(s): Foot, Left PERIPHERAL IV DATA: Not applicable SIGNED BY: RT Bob(R) January 02, 2024 9:46 AM documented in this [facility]03-28-2024 NoteHNO ID: [id number] Author: JESENIA BENEDICT RT(R) Service: Radiology Author Type: Technologist Type: Progress Notes Filed: 01/02/2024 09:54 Note Text: Radiology Service Progress Note PATIENT NAME: Marian Koch DATE OF SERVICE: January 02, 2024 TIME: 9:46 AM PATIENT IDENTITY VERIFICATION COMPLETED USING TWO (2) IDENTIFIERS: Name and Date of confirmed by patient verbally. FALL SCREENING: Has the patient had 2 falls in the last year or 1 fall with injury or currently using an Ambulatory Assistive Device (Walker, Cane, Wheelchair, Crutches, etc.)? No PATIENT GENDER DATA: Male PATIENT RELEVANT IMPLANT DATA REVIEWED: Not Applicable PATIENT PRESENTS WITH AN IMPLANTABLE OR ATTACHED SECOND OFFICER: No RADIOLOGY DEPARTMENT: General X-ray: Exam(s) Completed: Lower Extremity X-Ray(s): Foot, Left PERIPHERAL IV DATA: Not applicable SIGNED BY: RT Bob(Meet) January 02, 2024 9:46 [facility]03-28-2024 NoteHNO ID: [id number] Author: OZ MANUEL APRN.HARDBOARD PANEL PRINTER Service: ? Author Type: ? Type: Progress Notes Filed: 01/02/2024 10:35 Note Text: Subjective Pain (foot) Pertinent negatives include no fever, itching or tingling. Pt presents to clinic on January 02, 2024 for CC left foot pain since Saturday- worsening Disrupted sleep- was up all night last night due to pain 10/10 aching pain when walking on left foot- pain in ball of heal and radiates to the left lateral edge of foot and into left 5th metatarsal States every one keeps telling me this is gout Meds: tylenol- did not help Tried heating pad- did not use ice No fall or injury to foot Cannot apply full pressure onto foot- limping 7/10 pain at rest No fracture or surgery to this foot in the past. Review of Systems Constitutional: Negative for chills, diaphoresis, fever and malaise/fatigue. Musculoskeletal: Negative for falls, joint pain and myalgias. Pain localized to heal of left foot Skin: Negative for itching and rash. Neurological: Negative for dizziness, tingling, focal weakness, weakness and headaches. BP 122/68 Pulse 67 Temp 36.3 ?C (97.3 ?F) Resp 16 Wt 65.5 kg (144 lb 6.4 oz) SpO2 98% BMI 24.03 kg/m? PAST MEDICAL HISTORY Diagnosis Date CAD [...] AI 1-2+ Claudication of both lower extremities ([facility]) 08/22/2017 02/05/[address] [place] [address] Jauregui: no stenosis left fem-pop bypass. Unable to get CHEL due to non-compressible vesels11/12/[address] Zavala [facility]: RIGHT: resting CHEL > 1.81, non-compressible arteries; TBI 0.40 = PAD; Right ankle: Moderate disease at rest. Right iliofemoral disease. Severe disease noted, post exercise, by tracings. LEFT SIDE: resting CHEL 1.81, non-compressible vessels, CHEL not accurate. 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 On Sensipar in remote past. Kidney dialysis 1988, and 2000 Neurogenic bladder VIC (obstructive sleep apnea) 08/04/2011 declines CPAP Pulmonary embolism ([facility]) 10-12 years ago Pulmonary nodules Foreign body [...] Sting and Darvocet-N 100 [Propoxyphene N-Acetaminophen] MEDICATIONS albuterol HFA (PROVENTIL HFA, VENTOLIN HFA) 90 mcg/actuation inhalerInhale 2 Puffs as instructed every 6 hours as needed.Disp: 6.7 EachRfl: 5 tacrolimus ER (ASTAGRAF XL) 1 mg capsuleTake 1 capsule by mouth every 24 hours. 0.5mg dailyDisp: Rfl: ipratropium-albuterol (DUONEB) 0.5 mg-3 mg(2.5 mg base)/3 mL nebuInhale 3 mL as instructed every 6 hours as needed for wheezing/shortness of breath.Disp: 360 mLRfl: 1 gabapentin (NEURONTIN) 300 mg capsuleTake 1 capsule by mouth three times a day for 90 days.Disp: 90 capsuleRfl: 2 omeprazole (PRILOSEC) 40 mg capsuleTake 1 capsule by mouth once daily.Disp: 30 capsuleRfl: 5 sulfamethoxazole-trimethoprim (BACTRIM) 400-80 mg per tabletTake 1 tablet by mouth every afternoon.Disp: Rfl: Fluorouracil 5 % creamAPPLY TO LEFT LOWER LIP 2X DAILY FOR 2 WEEKS. WASH HANDS IMMEDIATELY AFTER APPLYING.Disp: Rfl: alendronate (FOSAMAX) 70 mg tabletTake 1 tablet by mouth one time a week. Take with a full glass of water, on an empty stomach; do NOT lie down for 30minutes.Disp: 12 tabletRfl: 3 atorvastatin (LIPITOR) 80 mg tabletTake 1 tablet by mouth daily at bedtime.Disp: 90 tabletRfl: 3 CARDURA XL 8 mg 24 hr tabletTAKE 1 TABLET BY MOUTH EVERY DAY WITH BREAKFASTDisp: 90 tabletRfl: 3 predniSONE (DELTASONE) 5 mg tabletTake 1 tablet by (more content not included)...[facility]03-25-2024 History of Present illness Narrative* Yariel Cotter RT(Meet) - 12/30/2023 9:10 AM EDT Radiology Service Progress Note PATIENT NAME: Marian Koch DATE OF SERVICE: December 30, 2023 TIME: 9:16 AM PATIENT IDENTITY VERIFICATION COMPLETED USING TWO (2) IDENTIFIERS: Name and Date of confirmedby patient verbally. FALL SCREENING: Has the patient had 2 falls in the last year or 1 fall with injury or currently using an Ambulatory Assistive Device (Walker, Cane, Wheelchair, Crutches, etc.)? No PATIENT GENDER DATA: Male PATIENT RELEVANT IMPLANT DATA REVIEWED: Not Applicable PATIENT PRESENTS WITH AN IMPLANTABLE OR ATTACHED SECOND OFFICER: No RADIOLOGY DEPARTMENT: General X-ray: Exam(s) Completed: Chest X-Ray PERIPHERAL IV DATA: Not applicable SIGNED BY: RT Andreina(Meet) December 30, 2023 9:16 AM documented [facility]24 NoteHNO ID: [id number] Author: YARIEL COTTER RT(R) Service: ? Author Type: Technologist Type: Progress Notes Filed: 12/30/2023 09:20 Note Text: Radiology Service Progress Note PATIENT NAME: Marian Koch DATE OF SERVICE: December 30, 2023 TIME: 9:16 AM PATIENT IDENTITY VERIFICATION COMPLETED USING TWO (2) IDENTIFIERS: Name and Date of confirmed by patient verbally. FALL SCREENING: Has the patient had 2 falls in the last year or 1 fall with injury or currently using an Ambulatory Assistive Device (Walker, Cane, Wheelchair, Crutches, etc.)? No PATIENT GENDER DATA: Male PATIENT RELEVANT IMPLANT DATA REVIEWED: Not Applicable PATIENT PRESENTS WITH AN IMPLANTABLE OR ATTACHED SECOND OFFICER: No RADIOLOGY DEPARTMENT: General X-ray: Exam(s) Completed: Chest X-Ray PERIPHERAL IV DATA: Not applicable SIGNED BY: RT Andreina(R) December 30, 2023 9:16 [facility]03-25-2024 History of Present illness Narrative* Diana Tate PA-C - 12/30/2023 8:20 AM EDT 53 year old male with c/o 4 week f/u on pneumonia and BP: feels he has fully resolved. No illness sx currently. HTN: Current meds: Patient is compliant with meds Yes Monitors bp at home: No. If yes, readings: Denies side effects: No. Chest pain: No. Dyspnea: No. Edema: No. Palpitations: No. Syncope: No. Headache: No. Dizziness: No. Last 3 Encounter BP Readings: Date: BP: 12/30/2023 162/87[BP desi[ 11/29/2023 126/71[BP desi[ 09/26/2023 110/70 Last 2 Encounter Wt Readings: Date: Wt: 12/30/2023 64.9 kg (143 lb) 11/29/2023 63 kg (139 lb) Cough has resolved, Energy level is still low, at baseline, better from when ill. 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 Discuss SSI- he would qualify under issues with recurrent pneumonia, cardiovascular issues, transplant status. HISTORIES FAMILY HISTORY Problem Relation Age of [...] RIGHT: resting CHEL > 1.81, non-compressible arteries; TBI0.40 = PAD; Right ankle: Moderate disease at rest. Right iliofemoral disease. Severe disease noted,post exercise, by tracings. LEFT SIDE: resting CHEL 1.81, non-compressible vessels, CHEL not accurate. 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 On Sensipar in remote past. Kidney dialysis 1988, and 2000 Neurogenic bladder VIC (obstructive sleep apnea) 08/04/2011 declines CPAP Pulmonary embolism ([facility]) 10-12 years ago Pulmonary nodules Foreign body reaction in pulmonary vasculature, ? cause. Extensive evaluation ruled out vasculitis, fungal inffection, pneumoconiosis. May have been from gortex graft .Resulted in multiple pulmonarynodules. Radiculopathy, lumbar region 11/28/2016 Renal failure 02/20/2010 Renal failure, chronic, stage 3 (moderate) ([facility]) folllowing renal transplant Renal stones Steroid long-term use Transplant kidney 1993 and 2009 Failed in 2000(right in ', removed in ; left ') PAST SURGICAL HISTORY Procedure Laterality Date CABG (4) VEIN GRAFTS & ARTERIAL GRAFT(S) 2004 COLONOSCOPY FLX DX W/COLLJ SPEC WHEN PFRMD 06/14/[address] Dodge PERICARDIAL WINDOW, DRAINAGE 1991 RENAL ALLOTRANSPLANTATION W/ GRAFT W/O RECIPIENT NEPHRECTOMY 1993, repeat 2019. Social History Tobacco Use Smoking status: Former Packs/day: 1.25 Years: 15.00 Additional pack years: 0.00 Total pack years: 18.75 Types: Cigarettes Quit date: 09/06/2011 Years since quittin.3 Smokeless tobacco: Current Types: Chew Vaping Use Vaping Use: Never used Substance Use Topics Alcohol use: No Drug use: No ACTIVE PROBLEM LIST Renal Failure, Chronic, Stage 3 (Moderate) ([facility]) Cad (Coronary Artery Disease) Dvt (Deep Venous Thrombosis) ([facility]) Vic (Obstructive Sleep Apnea) Depression H/O Kidney Transplant Gerd (Gastroesophageal Reflux Disease) Chronic Left-Sided Low Back Pain With Left-Sided Sciatica Bilateral Leg Pain Iliotibial Band Syndrome Radiculopathy, Lumbar Region Claudication of Both Lower Extremities ([facility]) Neurogenic Bladder Hyperparathyroidism ([facility]) Hyperhomocysteinemia ([facility]) Pulmonary Nodules Renal Stones Rlq Abdominal Pain Immunodeficiency Due to Treatment With Immunosuppressive Medication ([facility]) ([facility]) Coronary Artery Disease of [place] 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 ([facility]) Chronic Pain Syndrome Other Osteoporosis Without Current Pathological Fracture Current Mild Episode of Major Depressive Disorder ([facility]) Copd (Chronic Obstructive Pulmonary Disease) ([facility]) Mixed Hyperlipidemia Palpitations Cataracta Traumatic Incomplete Tear of Left Rotator Cuff Benign Prostatic Hyperplasia With Urinary Obstruction Abnormal Ekg Vhd (Valvular Heart Disease) Pulmonary Hypertension ([facility]) S/P Shoulder Surgery Current Outpatient Medications Medication Sig Dispense Refill ipratropium-albuterol (DUONEB) 0.5 mg-3 mg(2.5 mg base)/3 mL nebu Inhale 3 mL as instructed every 6hours as needed for wheezing/shortness of breath. 360 mL 1 gabapentin (NEURONTIN) 300 mg capsule Take 1 capsule by mouth three times a day for 90 days. 90 capsule 2 omeprazole (PRILOSEC) 40 mg capsule Take 1 capsule by mouth once daily. 30 capsule 5 sulfamethoxazole-trimethoprim (BACTRIM) 400-80 mg per tablet Take 1 tablet by mouth every afternoon. (Patient not taking: Reported on 11/21/2023) Fluorouracil 5 % cream APPLY TO LEFT [...] Take 1 tablet by mouth once daily. ASTAGRAF XL 0.5 mg capsule Take 2 mg by mouth once daily. 11 amLODIPine (NORVASC) 5 mg tablet Take 5 mg by mouth once daily. carvedilol (COREG) 25 mg tablet Take 1 tablet by mouth twice daily with meals. 3 acetaminophen (TYLENOL) 500 mg tablet Take 500 mg by mouth every 8 hours as needed. mycophenolate mofetil (CELLCEPT) 250 mg capsule Take 500 mg by mouth twice daily. 0 magnesium oxide 400 mg cap Take 1 capsule by mouth twice daily. 0 ASPIRIN 81 MG TAB Take one(1) tablet daily. 0 0 Current Facility-Administered Medications Medication Dose Route Frequency Provider Last Rate Last Admin perflutren lipid microspheres 1.3 mL in NaCl (PF) 0.9% 10 mL injection (DEFINITY) INTRAVENOUS DIRECTED PRN Ledy Ivy MD sodium chloride 0.9 % (flush) 10 mL (BD POSIFLUSH) 10 mL INTRAVENOUS DIRECTED PRN Ledy Ivy MD Hepatitis C Screening Never done HIV Screening Never done Shingrix Vaccine(1 of 2) Never done LDL Cholesterol due on 10/19/2023 EXAM: BP 162/87 Pulse 72 Resp 16 Wt 64.9 kg (143 lb) SpO2 97% BMI 23.80 kg/m Recheck 102/80 Pleasant adult man in no acute distress. Alert and oriented [...] pierson with good air exchange through out. Still slightly dull left lateral base. HRRR without murmur or gallop. No lifts, heaves, or rubs. Extrem: no clubbing or cyanosis. Edema: 1/4+. Extremities are warm and pink with prompt capillary refill. /ASSESSMENT/PLAN: 1. Influenza A with pneumonia - ICD9: 487.0, ICD10: J09.X1 Resolved, feels back to normal. Still dull left lateral: recheck CXR for clearance. - XR CHEST 2V FRONTAL/LAT Diana Tate PA-C Some of this note may have been copied and pasted for the purpose of history context and comparisonand has been adjusted for changes in prior data. Diana Tate PA-C [facility]24 NoteHNO ID: [id number] Author: Diana TATE PA-C Service: ? Author Type: Physician Furniture Repair Technician Type: Progress Notes Filed: 12/30/2023 09:12 Note Text: 53 year old male with c/o 4 week f/u on pneumonia and BP: feels he has fully resolved. No illness sx currently. HTN: Current meds: Patient is compliant with meds Yes Monitors bp at home: No. If yes, readings: Denies side effects: No. Chest pain: No. Dyspnea: No. Edema: No. Palpitations: No. Syncope: No. Headache: No. Dizziness: No. Last 3 Encounter BP Readings: Date: BP: 12/30/2023 162/87[BP desi[ 11/29/2023 126/71[BP desi[ 09/26/2023 110/70 Last 2 Encounter Wt Readings: Date: Wt: 12/30/2023 64.9 kg (143 lb) 11/29/2023 63 kg (139 lb) Cough has resolved, Energy level is still low, at baseline, better from when ill. 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 Discuss SSI- he would qualify under issues with recurrent pneumonia, cardiovascular issues, transplant status. HISTORIES FAMILY HISTORY Problem Relation Age of [...] not accurate. 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 On Sensipar in remote past. Kidney dialysis 1988, and 2000 Neurogenic bladder VIC (obstructive sleep apnea) 08/04/2011 declines CPAP Pulmonary embolism ([facility]) 10-12 years ago Pulmonary nodules Foreign body reaction in pulmonary vasculature, ? cause. Extensive evaluation ruled out vasculitis, fungal inffection, pneumoconiosis. May have been from gortex graft .Resulted in multiple pulmonary nodules. Radiculopathy, lumbar region 11/28/2016 Renal failure 02/20/2010 Renal failure, chronic, stage 3 (moderate) ([facility]) folllowing renal transplant Renal stones Steroid long-term [...] Smoking status: Former Packs/day: 1.25 Years: 15.00 Additional pack years: 0.00 Total pack years: 18.75 Types: Cigarettes Quit date: 09/06/2011 [...] Extremities ([facility]) Neurogenic Bladder Hyperparathyroidism ([facility]) Hyperhomocysteinemia ([facility]) Pulmonary Nodules Renal Stones Rlq Abdominal Pain Immunodeficiency Due to Treatment With Immunosuppressive Medication ([facility]) ([facility]) Coronary Artery Disease of Robinson 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 Author Type: LICENSED NURSE Type: Progress Notes Filed: 11/29/2023 12:02 Note Text: Patient seen if office today for visit.[facility]02-23-[facility] History of Present illness Narrative* Colleen Bueno LPN - 11/29/2023 12:01 PM EST Patient seen if office today for visit. * Morris Ocampo RN - 11/27/2023 2:05 PM EST Called and left a voicemail for the patient to call back and ask for a nurse to receive the providers message. * Colleen Bueno LPN - 11/22/2023 4:42 PM EST Left message to call and speak with nurse. * Diana Tate PA-C - 11/22/2023 4:19 PM EST GFR on discharge 58 Gabapentin was stopped by patient 09/14/2022 The following approved medication requests have been transmitted electronically. Requested Prescriptions Signed Prescriptions Disp Refills gabapentin (NEURONTIN) 300 mg capsule 90 capsule 2 Sig: Take 1 capsule by mouth three times a day for 90 days. Diana Tate PA-C * Nikki Ramírez Ma - 11/21/2023 1:38 PM EST TRANSITION CARE MANAGEMENT (TCM) INITIAL CONTACT Fisheries Director Outreach Provider Action/FYI: Needs new eligibility consultant. Asking for rx for gabapentin for his back pain. They were giving it to himwhile in the hospital. Initial contact with patient post discharge, spoke to patient. Patient identified by name and . TRANSITION CARE MANAGEMENT INITIAL OUTREACH DOCUMENTATION: Date of Outreach: 11/21/2023 Outreach Attempt 1: Contact Made Date of Discharge 11/20/2023 Some recent data might be hidden SUMMARY: -Pt discharged from [facility] on 11/20/23. -Admitted for: Influenza A, COPD Do you have a hospital follow up appointment with your PCP? Appointment on 11/29/23 with Herman Tate. Yes. Remind patient of appointment date, time, and location. If not within 14 calendar days of discharge - please reschedule accordingly. MEDICATIONS: Many patients have questions or concerns about their medications once they are home. Were you prescribed any new medications? Yes If yes, what are those medications? Prednisone 20 mg for 5 days, augmentin for 3 days Were you told to hold any medications? No Were any of your medications discontinued? No Do you have any questions about getting or taking your medications? No Your discharge instructions/After visit Summary (AVS) are important in guiding you through the recovery process. Is there anything I might help you understand? No Do you have all the necessary equipment and supplies at home? Yes Medical records from recent hospitalization: Placed for provider to review Nikki Ramírez Ma [facility] History of Present illness Narrative* Diana Tate PA-C - 11/29/2023 10:00 AM EST Transitional Care Management TCM Eligibility Documentation The following information was gathered during patient outreach TRANSITION CARE MANAGEMENT (TCM) INITIAL CONTACT Fisheries Director Outreach Provider Action/FYI: Needs new eligibility consultant. Asking for rx for gabapentin for his back pain. They were giving it to himwhile in the hospital. Initial contact with patient post discharge, spoke to patient. Patient identified by name and . TRANSITION CARE MANAGEMENT INITIAL OUTREACH DOCUMENTATION: Date of Outreach: 11/21/2023 Outreach Attempt 1: Contact Made Date of Discharge 11/20/2023 Some recent data might be hidden SUMMARY: -Pt discharged from [facility] on 11/20/23. -Admitted for: Influenza A, COPD Do you have a hospital follow up appointment with your PCP? Appointment on 11/29/23 with Herman Tate. Yes. Remind patient of appointment date, time, and location. If not within 14 calendar days of discharge - please reschedule accordingly. MEDICATIONS: Many patients have questions or concerns about their medications once they are home. Were you prescribed any new medications? Yes If yes, what are those medications? Prednisone 20 mg for 5 days, augmentin for 3 days Were you told to hold any medications? No Were any of your medications discontinued? No Do you have any questions about getting or taking your medications? No Your discharge instructions/After visit Summary (AVS) are important in guiding you through the recovery process. Is there anything I might help you understand? No Do you have all the necessary equipment and supplies at home? Yes Medical records from recent hospitalization: Placed for provider to review Nikki Ramírez Ma PROGRESS NOTE: Mr. Marian Koch is a 53 y/o male c/o Hospital discharge follow up Facility: [facility] Date of admission: 11/15/2023 Date of discharge: 11/20/2023 Consultations: 11/16/[address] Lavell Marin 11/18/[address] Celso Byrd Discharge diagnoses: 1. Acute kidney injury 2. Chronic kidney disease status post transplant, stage IV Medication reconciliation: New prescriptions: Prednisone 20 mg 2 tablets daily x 5 days, #10/0 Amoxicillin clavulanate 875-125 mg tablet twice daily 3 days #6/0 Continued prescriptions: Albuterol 0.083% nebulizer solution every 4 hours as needed, #25/0 Albuterol sulfate inhaler 1 to 2 puffs every 4 hours as needed, #1/2 Prednisone 5 mg p.o. daily Sulfamethoxazole trimethoprim 400-80 mg tablet daily Astagraf XL 0.5 mg capsule extended release 24-hour 2 mg daily Mycophenolate Moffa till 500 mg twice daily Amlodipine 5 mg daily doxazosin 8 mg. daily Omeprazole 20 mg daily AC ASA 81 mg chewable daily Magnesium oxide 400 mg p.o. twice daily Atorvastatin 80 mg daily Carvedilol 2.5 mg p.o. twice daily Hospital course: 11/15/2023 presented to [facility] emergency department with multiple concerns including shortness of breath at rest, fever, chills, muscle aches. 2 days prior to arrival I developed a mild cough followed by fever, chills, muscle aches, worsening shortness of breath, mild wheezing, tested positive for influenza A.. Reported mild sputum production. At that time patient was given breathing treatments and IV steroids with improvement, also given a dose of IV morphine and IV Zofran. VS: 99.6 F-80-28-144/77-80% RA, improved to 92% RA on O2 nasal cannula 5 L/min Physical exam was essentially normal CBC abnormals: RBC 3.39L- Hgb 9.6L- HCT 30.7 L, MCHC 31.3L, RDW 44.0H-PLT 84L, neutrophil percent 74.9, lymph 10.2% L, mono 13.5% H 13.5L, absolute lymphs 0.65 L Crisp 13.5% H, absolute with 0.65L Chemistry abnormals: Potassium 5.4H-AG 4L-BUN 35 H-e2.33h, EGFR 31 L Chest x-ray: Diffuse bronchial wall thickening with streaky airspace opacities in mid and lower lung Admission assessment and plan: 1. Influenza A, mild COPD exacerbation with acute hypoxia, suspected CHF exacerbation with influenza positive on admission, abnormal chest x-ray, hypoxia with low-grade fever and mild tachycardia butotherwise hemodynamically stable. Patient was started on IV steroids, scheduled DuoNebs, tablet 640mg p.o. daily, blood and sputum cultures ordered. Calciu procalcitonin ordered. No antibiotic treatment. 2. CKD stage IV, history of renal transplant x 2 last in 2009: Unsure of baseline. Treating with IVLasix, monitor BMP daily as well as urine output transplant meds and Bactrim 3. History of coronary artery disease with remote CABG, hypertension, hyperlipidemia: Normotensive on admission, aspirin and statin continued with amlodipine and carvedilol held with intention to restart when able. 4. Gastroesophageal reflux controlled, continue home PPI 5. BPH with LUTS: Continue home doxazosin 6. Neuropathy: Continue gabapentin 7. Chronic anemia with hemoglobin 9.6 on admit, baseline around 9-11, repeat CBC ordered. 11/18/[address] Celso Byrd: Serial troponins [phone], known occluded coronary anatomy with major collaterals. Status post bifemoral bypass. Identified elevated with multiple explanations possible. Do not feel invasive evaluation is needed Discharge weight 136 pounds 10 ounces, BMI 23.4 11/20/2023 discharge labs: CBC: WBC 8.4-RBC 3.33L-Hgb 9.7L-HCT 29.9 L,-PLT 114, normal indices Chemistries: Sodium 140-CL 107-K4.5-CO2 26.0-BUN 45 H-CRE 1.45 H, eGFR 58 L, BUN/creatinine ratio 30 3.H-GLU 112 H Microbiology: 11/15/2023 nasal mucosa: Negative for SARS COVID, influenza and RSV., Final influenza A 11/28/2023 back to [facility] ED with c/o SOB on exertion, persistent cough with white sputum. No chest pain, fever, chills. VS 99.0X-67-08-138/100-98% RA with blood pressure and vital signs rechecked several times, final 140 over 64-87-99% on room air. Exam documented wheezes throughout, abnormal rhythm with ectopic beats Mild tenderness over anterior aspect of right leg with no calf tenderness or palpable cords. WBC 11.1-Hgb 10.5 L-HCT 33.4 L-PLT 128, neutrophil percent 84.5 H, absolute neutrophil 9.4H, absolute lymphs 0.76 L D-dimer 1.62 H Chemistry abnormals: CL 117-AG 2-BUN 34-CRE 1.45, EGFR 54-BNP 159.2 Chest x-ray with progressive consolidation left lower lobe, densely calcified posterior left pleural plaques [facility] FAMILY HISTORY Problem Relation Age of Onset [...] AI 1-2+ Claudication of both lower extremities ([facility]) 08/22/2017 02/05/[address] Jauregui: no stenosis left fem-pop bypass. Unable to get CHEL due to non-compressible vesels11/12/[address] Zavala [facility]: RIGHT: resting CHEL > 1.81, non-compressible arteries; TBI0.40 = PAD; Right ankle: Moderate disease at rest. Right iliofemoral disease. Severe disease noted,post exercise, by tracings. LEFT SIDE: resting CHEL 1.81, non-compressible vessels, CHEL not accurate. 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 On Sensipar in remote past. Kidney dialysis 1988, and 2000 Neurogenic bladder VIC (obstructive sleep apnea) 08/04/2011 declines CPAP Pulmonary embolism (HCC) 10-12 years ago Pulmonary nodules Foreign body reaction in pulmonary vasculature, ? cause. Extensive evaluation ruled out vasculitis, fungal inffection, pneumoconiosis. May have been from gortex graft .Resulted in multiple pulmonarynodules. Radiculopathy, lumbar region 11/28/2016 Renal failure 02/20/2010 [...] Smoking status: Former Packs/day: 1.25 Years: 15.00 Additional pack years: 0.00 Total pack years: 18.75 Types: Cigarettes Quit date: 09/06/2011 [...] Due to Treatment With Immunosuppressive Medication (Hcc) (Hcc) Coronary Artery Disease of Robinson 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 (Hcc) Chronic Pain Syndrome Other Osteoporosis Without Current Pathological Fracture Current Mild Episode of Major Depressive Disorder (Hcc) Copd (Chronic Obstructive Pulmonary Disease) (Hcc) Mixed Hyperlipidemia Palpitations Cataracta Traumatic Incomplete Tear of Left Rotator Cuff Benign Prostatic Hyperplasia With Urinary Obstruction Abnormal Ekg Vhd (Valvular Heart Disease) Pulmonary Hypertension (Hcc) S/P Shoulder Surgery Current Outpatient Medications Medication Sig Dispense Refill gabapentin (NEURONTIN) 300 mg capsule Take 1 capsule by mouth three times a day for 90 days. 90 capsule 2 omeprazole (PRILOSEC) 40 mg capsule Take 1 capsule by mouth once daily. 30 capsule 5 sulfamethoxazole-trimethoprim (BACTRIM) 400-80 mg per tablet Take 1 tablet by mouth every afternoon. (Patient not taking: Reported on 11/21/2023) albuterol (PROVENTIL) 2.5 mg /3 mL (0.083 %) nebulizer solution Use 3 mL via nebulizer every 4 hours as needed for wheezing/shortness of breath. Use over 5- 15minutes. 150 mL 0 Fluorouracil 5 % cream APPLY TO LEFT [...] INHALATION INSTRUCTED ONCE DAILY. 1 Each 11 ASTAGRAF XL 0.5 mg capsule Take 2 mg by mouth once daily. 11 amLODIPine (NORVASC) 5 mg tablet Take 5 mg by mouth once daily. carvedilol (COREG) 25 mg tablet Take 1 tablet by mouth twice daily with meals. 3 acetaminophen (TYLENOL) 500 mg tablet Take 500 mg by mouth every 8 hours as needed. mycophenolate mofetil (CELLCEPT) 250 mg capsule Take 500 mg by mouth twice daily. 0 magnesium oxide 400 mg cap Take 1 capsule by mouth twice daily. 0 ASPIRIN 81 MG TAB Take one(1) tablet daily. 0 0 Current Facility-Administered Medications Medication Dose Route Frequency Provider Last Rate Last Admin perflutren lipid microspheres 1.3 mL in NaCl (PF) 0.9% 10 mL injection (DEFINITY) INTRAVENOUS DIRECTED PRN Taraben, Amir, MD sodium chloride 0.9 % (flush) 10 mL (BD POSIFLUSH) 10 mL INTRAVENOUS DIRECTED PRN Ledy Ivy MD Hepatitis C Screening Never done HIV Screening Never done Shingrix Vaccine(1 of 2) Never done LDL Cholesterol due on 10/19/2023 EXAM: BP 126/71 (BP Site: Left Arm) Pulse 79 Resp 18 Wt 63 kg (139 lb) SpO2 97% BMI 23.13 kg/m Pleasant adult man in no acute distress. Alert and oriented all spheres. Normal affect and cognition. Speech normal. No deficits to learning or comprehension. Skin warm, dry, pink to lips and nailbeds. Bronzed, numerous purpura, dry, leathery. Respirations regular and unlabored. Some congested cough without production HEENT: NCAT. No scleral icterus or conjunctival injection. TM's clear. Nose and oropharynx free from injection or lesion. Oral membranes moist and pink. No cervical lymph nodes. Thyroid non-tender, no masses, or enlargement. Carotids pulses 2+/4+ without bruits. Neck veins are flat. Chest is normal shape. Lungs are clear to all pierson with good air exchange through out. Some left lobe vesicular sounds, no rales or rhonchi. No dullness to percussin HRRR without murmur or gallop. No lifts, heaves, or rubs. Abdomen: active bowel sounds throughout, soft, nontender, no masses or organomegaly. No CVAT. Extrem: no clubbing or cyanosis. Edema: no pitting. Extremities are warm and pink with prompt capillary refill. ASSESSMENT/PLAN: 1. Hospital discharge follow-up - ICD9: V67.59, ICD10: Z09 (primary diagnosis) Completed record summary, medication reconciliation,, updated problem list 2. H/O kidney transplant - ICD9: V42.0, ICD10: Z94.0 3. Chronic renal failure, stage 3a (HCC) - ICD9: 585.3, ICD10: N18.31 - CBC + DIFF - COMP METABOLIC PANEL - PHOSPHORUS INORGANIC - VITAMIN D 25 HYDROXY - PTH INTACT BLD 4. Acute renal failure superimposed on stage 3a chronic kidney disease, unspecified acute renal failure type (HCC) - ICD9: 584.9, 585.3, ICD10: N17.9, N18.31 Needs follow up lab as above 5. 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) - ICD9: 414.01, 413.9, ICD10: I25.118 sable 6. Influenza A with pneumonia - ICD9: 487.0, ICD10: J09.X1 resolving 7. Chronic obstructive pulmonary disease, unspecified COPD type (HCC) - ICD9: 496, ICD10: J44.9 - IPRATROPIUM 0.5 MG-ALBUTEROL 3 MG (2.5 MG BASE)/3 ML NEBULIZATION SOLN - CBC + DIFF - CONSULT TO PULMONARY MEDICINE 8. Viral pneumonia - ICD9: 480.9, ICD10: J12.9 9. Consolidation of left lower lobe of lung (HCC) - ICD9: 481, ICD10: J18.1 Recheck CXR in 4-6 weeks. Diana Tate PA-C [facility] NoteHNO ID: [id number] Author: Diana TATE PA-C Service: ? Author Type: Physician Furniture Repair Technician Type: Progress Notes Filed: 12/07/2023 13:18 Note Text: Transitional Care Management TCM Eligibility Documentation The following information was gathered during patient outreach TRANSITION CARE MANAGEMENT (TCM) INITIAL CONTACT Fisheries Director Outreach Provider Action/FYI: Needs new eligibility consultant. Asking for rx for gabapentin for his back pain. They were giving it to him while in the hospital. Initial contact with patient post discharge, spoke to patient. Patient identified by name and . TRANSITION CARE MANAGEMENT INITIAL OUTREACH DOCUMENTATION: Date of Outreach: 11/21/2023 Outreach Attempt 1: Contact Made Date of Discharge 11/20/2023 Some recent data might be hidden SUMMARY: -Pt discharged from [facility] on 11/20/23. -Admitted for: Influenza A, COPD Do you have a hospital follow up appointment with your PCP? Appointment on 11/29/23 with Herman Tate. Yes. Remind patient of appointment date, time, and location. If not within 14 calendar days of discharge - please reschedule accordingly. MEDICATIONS: Many patients have questions or concerns about their medications once they are home. Were you prescribed any new medications? Yes If yes, what are those medications? Prednisone 20 mg for 5 days, augmentin for 3 days Were you told to hold any medications? No Were any of your medications discontinued? No Do you have any questions about getting or taking your medications? No Your discharge instructions/After visit Summary (AVS) are important in guiding you through the recovery process. Is there anything I might help you understand? No Do you have all the necessary equipment and supplies at home? Yes Medical records from recent hospitalization: Placed for provider to review Nikki Ramírez Ma PROGRESS NOTE: Mr. Marian Koch is a 53 y/o male c/o Hospital discharge follow up Facility: [facility] Date of admission: 11/15/2023 Date of discharge: 11/20/2023 Consultations: 11/16/[address] Lavell Marin 11/18/[address] Celso Byrd Discharge diagnoses: 1. Acute kidney injury 2. Chronic kidney disease status post transplant, stage IV Medication reconciliation: New prescriptions: Prednisone 20 mg 2 tablets daily x 5 days, #10/0 Amoxicillin clavulanate 875-125 mg tablet twice daily 3 days #6/0 Continued prescriptions: Albuterol 0.083% nebulizer solution every 4 hours as needed, #25/0 Albuterol sulfate inhaler 1 to 2 puffs every 4 hours as needed, #1/2 Prednisone 5 mg p.o. daily Sulfamethoxazole trimethoprim 400-80 mg tablet daily Astagraf XL 0.5 mg capsule extended release 24-hour 2 mg daily Mycophenolate Moffa till 500 mg twice daily Amlodipine 5 mg daily doxazosin 8 mg. daily Omeprazole 20 mg daily AC ASA 81 mg chewable daily Magnesium oxide 400 mg p.o. twice daily Atorvastatin 80 mg daily Carvedilol 2.5 mg p.o. twice daily Hospital course: 11/15/2023 presented to [facility] emergency department with multiple concerns including shortness of breath at rest, fever, chills, muscle aches. 2 days prior to arrival I developed a mild cough followed by fever, chills, muscle aches, worsening shortness of breath, mild wheezing, tested positive for influenza A.. Reported mild sputum production. At that time patient was given breathing treatments and IV steroids with improvement, also given a dose of IV morphine and IV Zofran. VS: 99.6 F-80-28-144/77-80% RA, improved to 92% RA on O2 nasal cannula 5 L/min Physical exam was essentially normal CBC abnormals: RBC 3.39L- Hgb 9.6L- HCT 30.7 L, MCHC 31.3L, RDW 44.0H-PLT 84L, neutrophil percent 74.9, lymph 10.2% L, mono 13.5% H 13.5L, absolute lymphs 0.65 L Crisp 13.5% H, absolute with 0.65L Chemistry abnormals: Potassium 5.4H-AG 4L-BUN 35 H-e2.33h, EGFR 31 L Chest x-ray: Diffuse bronchial wall thickening with streaky airspace opacities in mid and lower lung Admission assessment and plan: 1. Influenza A, mild COPD exacerbation with acute hypoxia, suspected CHF exacerbation with influenza positive on admission, abnormal chest x-ray, hypoxia with low-grade fever and mild tachycardia but otherwise hemodynamically stable. Patient was started on IV steroids, scheduled DuoNebs, tablet 640 mg p.o. daily, blood and sputum cultures ordered. Calciu procalcitonin ordered. No antibiotic treatment. 2. CKD stage IV, history of renal transplant x 2 last in 2009: Unsure of baseline. Treating with IV Lasix, monitor BMP daily as well as urine output transplant meds and Bactrim 3. History of coronary artery disease with remote CABG, hypertension, hyperlipidemia: Normotensive on admission, aspirin and statin continued with amlodipine and carvedilol held with intention to restart when able. 4. Gastroesophageal reflux controlled, continue home PPI 5. BPH with LUTS: Continue h (more content not included)...[facility]02-21-2024 NoteHNO ID: [id number] Author: MORRIS OCAMPO RN Service: ? Author Type: Registered Nurse Type: Progress Notes Filed: 11/29/2023 12:02 Note Text: Called and left a voicemail for the patient to call back and ask for a nurse to receive the providers message.[facility]02-16-2024 NoteHNO ID: [id number] Author: COLLEEN BUENO LPN Service: ? Author Type: LICENSED NURSE Type: Progress Notes Filed: 11/29/2023 12:02 Note Text: Left message to call and speak with nurse.[facility]02-16-2024 NoteHNO ID: [id number] Author: Diana TATE PA-C Service: ? Author Type: Physician Furniture Repair Technician Type: Progress Notes Filed: 11/29/2023 12:02 Note Text: GFR on discharge 58 Gabapentin was stopped by patient 09/14/2022 The following approved medication requests have been transmitted electronically. Requested Prescriptions Signed Prescriptions Disp Refills gabapentin (NEURONTIN) 300 mg capsule 90 capsule 2 Sig: Take 1 capsule by mouth three times a day for 90 days. [facility] NoteHNO ID: [id number] Author: ?, ?, ? Service: ? Author Type: ? Type: Progress Notes Filed: 11/29/2023 12:02 Note Text: TRANSITION CARE MANAGEMENT (TCM) INITIAL CONTACT Fisheries Director Outreach Provider Action/FYI: Needs new eligibility consultant. Asking for rx for gabapentin for his back pain. They were giving it to him while in the hospital. Initial contact with patient post discharge, spoke to patient. Patient identified by name and . TRANSITION CARE MANAGEMENT INITIAL OUTREACH DOCUMENTATION: Date of Outreach: 11/21/2023 Outreach Attempt 1: Contact Made Date of Discharge 11/20/2023 Some recent data might be hidden SUMMARY: -Pt discharged from [facility] on 11/20/23. -Admitted for: Influenza A, COPD Do you have a hospital follow up appointment with your PCP? Appointment on 11/29/23 with Herman Tate. Yes. Remind patient of appointment date, time, and location. If not within 14 calendar days of discharge - please reschedule accordingly. MEDICATIONS: Many patients have questions or concerns about their medications once they are home. Were you prescribed any new medications? Yes If yes, what are those medications? Prednisone 20 mg for 5 days, augmentin for 3 days Were you told to hold any medications? No Were any of your medications discontinued? No Do you have any questions about getting or taking your medications? No Your discharge instructions/After visit Summary (AVS) are important in guiding you through the recovery process. Is there anything I might help you understand? No Do you have all the necessary equipment and supplies at home? Yes Medical records from recent hospitalization: Placed for provider to review Nikki Ramírez [facility]02-15-2024 NotePatient Outreach (FAMPWS) MARIAN KOCH ([id number]) 1970 M Date Time Provider Department 11/21/23 [facility] RAM[facility]Z [facility] During your visit today, we recorded the following information about you: Nikki Ramírez Ma 11/29/2023 12:02 PM Signed TRANSITION CARE MANAGEMENT (TCM) INITIAL CONTACT Fisheries Director Outreach Provider Action/FYI: Needs new eligibility consultant. Asking for rx for gabapentin for his back pain. They were giving it to him while in the hospital. Initial contact with patient post discharge, spoke to patient. Patient identified by name and . TRANSITION CARE MANAGEMENT INITIAL OUTREACH DOCUMENTATION: Date of Outreach: 11/21/2023 Outreach Attempt 1: Contact Made Date of Discharge 11/20/2023 Some recent data might be hidden SUMMARY: -Pt discharged from [facility] on 11/20/23. -Admitted for: Influenza A, COPD Do you have a hospital follow up appointment with your PCP? Appointment on 11/29/23 with Herman Tate. Yes. Remind patient of appointment date, time, and location. If not within 14 calendar days of discharge - please reschedule accordingly. MEDICATIONS: Many patients have questions or concerns about their medications once they are home. Were you prescribed any new medications? Yes If yes, what are those medications? Prednisone 20 mg for 5 days, augmentin for 3 days Were you told to hold any medications? No Were any of your medications discontinued? No Do you have any questions about getting or taking your medications? No Your discharge instructions/After visit Summary (AVS) are important in guiding you through the recovery process. Is there anything I might help you understand? No Do you have all the necessary equipment and supplies at home? Yes Medical records from recent hospitalization: Placed for provider to review Diana Vance Ma, PA-C 11/29/2023 12:02 PM Signed GFR on discharge 58 Gabapentin was stopped by patient 09/14/2022 The following approved medication requests have been transmitted electronically. Requested Prescriptions Signed Prescriptions Disp Refills gabapentin (NEURONTIN) 300 mg capsule 90 capsule 2 Sig: Take 1 capsule by mouth three times a day for 90 days. ROBBIN Gold Tara, LPN 11/29/2023 12:02 PM Signed Left message to call and speak with nurse. Morris Ocampo RN 11/29/2023 12:02 PM Signed Called and left a voicemail for the patient to call back and ask for a nurse to receive the providers message. Colleen Bueno LPN 11/29/2023 12:02 PM Signed Patient seen if office today for visit. Allergies As of Date: 11/21/2023 Noted Allergy Reaction BEE STING 02/20/2010 4 - Hives 7 - Swelling DARVOCET-N 100 (PROPOXYPHENE N-AC*02/20/2010 4 - Hives Date Reviewed: 09/26/2023 Reviewed by: Nikki Ramírez Ma - Fully Assessed Reason for Visit: Transition Of Care [9754] Cmt: [facility] 11/15/23-11/20/23 Flu A, COPD Order(s):gabapentin (NEURONTIN) 300 mg capsuleTake 1 capsule by mouth three times a day for 90 days.Disp: 90 capsuleRfl: 2 Prescriptions as of 11/29/2023 - ipratropium-albuterol (DUONEB) 0.5 mg-3 mg(2.5 mg base)/3 mL nebu Inhale 3 mL as instructed every 6 hours as needed for wheezing/shortness of breath. - gabapentin (NEURONTIN) 300 mg capsule Take 1 capsule by mouth three times a day for 90 days. - omeprazole (PRILOSEC) 40 mg capsule Take 1 capsule by mouth once daily. - sulfamethoxazole-trimethoprim (BACTRIM) 400-80 mg per tablet Take 1 tablet by mouth every afternoon. - Fluorouracil 5 % cream APPLY TO LEFT LOWER LIP 2X DAILY FOR 2 WEEKS. WASH HANDS IMMEDIATELY AFTER APPLYING. - alendronate (FOSAMAX) 70 mg tablet Take 1 tablet by mouth one time a week. Take with a full glass of water, on an empty stomach; do NOT lie down for 30minutes. - atorvastatin (LIPITOR) 80 mg tablet Take 1 tablet by mouth daily at bedtime. - albuterol HFA (PROVENTIL HFA, VENTOLIN HFA) 90 mcg/actuation inhaler INHALE 2 PUFFS BY MOUTH EVERY 6 HOURS NEEDED DIRECTED - CARDURA XL 8 mg 24 hr tablet TAKE 1 TABLET BY MOUTH EVERY DAY WITH BREAKFAST - predniSONE (DELTASONE) 5 mg tablet Take 1 tablet by mouth once daily. - ASTAGRAF XL 0.5 mg capsule Take 2 mg by mouth once daily. - amLODIPine (NORVASC) 5 mg tablet Take 5 mg by mouth once daily. - carvedilol (COREG) 25 mg tablet Take 1 tablet by mouth twice daily with meals. - acetaminophen (TYLENOL) 500 mg tablet Take 500 mg by mouth every 8 hours as needed. - mycophenolate mofetil (CELLCEPT) 250 mg capsule Take 500 mg by mouth twice daily. - magnesium oxide 400 mg cap Take 1 capsule by mouth twice daily. - ASPIRIN 81 MG TAB Take one(1) tablet daily. Facility-Administered Medications as of 11/29/2023 - perflutren lipid microspheres 1.3 mL in NaCl (PF) 0.9% 10 mL injection (DEFINITY) - sodium chloride 0.9 % (flush) 10 mL (BD POSIFLUSH) Problem List As (more content not included)...[facility] 11-13-2023 History of Present illness Narrative* Matthew Sellers MD - 11/13/2023 8:40 AM EST Images from the original note were not [...] in 1993 and lasted until 1999, then heunderwent a 2nd kidney transplant in 2009 from [...] procedures and surgeries for skin cancer over thelower lip, face. Once there is no further [...] covert CNI to mTORi for skin cancer Matthew Sellers Transplant Nephrology documented in this [facility] Work Phone: [phone]) 207-134412-26-2023 NoteHNO ID: [id number] Author: Yariel Cotter RT(R) Service: ? Author Type: Technologist Type: [...] BY: RT Andreina(R) October 01, 2023 1:58 [facility]12-21-2023 NoteHNO ID: [id number] Author: Diana Tate PA-C Service: ? Author Type: Physician Furniture Repair Technician Type: Progress Notes Filed: 09/26/2023 4:11 PM Note Text: 53 year old male with c/o here for routine 6 month med follow up Left hip pain, in 08/05/2023 [facility] + home testing Covid19, rx for prednisone. Recovered. Coronary artery disease involving te-moak coronary artery of te-moak heart without angina pectoris (primary encounter diagnosis) [...] Abs Lymph 1.00 - 4.00 k/uL 1.07 Crisp% % 12.8 Abs Crisp <0.87 k/uL 0.63 Eosin% % 2.4 Abs [...] obstructive pulmonary disease, unspecified copd type (hcc) Current medications: Albuterol 0.083% nebulizer solution every 4 hours as needed Albuterol HFA 90 mcg per actuation 2 puffs every 4-6 hours Umeclidinium-full Anturol 62.5-25 mcg per actuation 1 inhalation daily No sob or cough, no orthopnea. Recent Covid URI H/o kidney transplant 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ppressive medication (hcc) ([facility]) Renal failure, chronic, stage 3 (moderate) ([facility]) Hyperparathyroidism (formerly [facility]) Current medications: Alendronate 70 mg once a [...] subscapularis tendon. Findings which (more content not included)...[facility]10-30-2023 NoteHNO ID: [id number] Author: Taryn Morris MD Service: ? Author Type: Physician Type: [...] AI 1-2+ Claudication of both lower extremities ([facility]) 08/22/2017 02/05/[address] Jauregui: no stenosis left fem-pop bypass. Unable to get CHEL due to non-compressible vesels11/12/[address] Zav[facility]: RIGHT: resting CHEL > 1.81, non-compressible arteries; TBI 0.40 = PAD; Right ankle: Moderate disease at rest. Right iliofemoral disease. Severe disease noted, post exercise, by tracings. LEFT SIDE: resting CHEL 1.81, non-compressible vessels, CHEL not accurate. 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 On Sensipar [...] erythema, bulge, or effu (more content not included)...[facility]10-30-2023 History of Present illness Narrative* Taryn Morris MD - 08/05/2023 3:33 PM EDT Patient presents with: Covid19 Concern: + x6 [...] RIGHT: resting CHEL > 1.81, non-compressible arteries; TBI0.40 = PAD; Right ankle: Moderate disease at rest. Right iliofemoral disease. Severe disease noted,post exercise, by tracings. LEFT SIDE: resting CHEL 1.81, non-compressible vessels, CHEL not accurate. 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 On Sensipar in remote past. Kidney dialysis 1988, and 2000 Neurogenic bladder VIC (obstructive sleep apnea) 08/04/2011 declines CPAP Pulmonary embolism ([facility]) 10-12 years ago Pulmonary nodules Foreign body reaction in pulmonary vasculature, ? cause. Extensive evaluation ruled out vasculitis, fungal inffection, pneumoconiosis. May have been from gortex graft .Resulted in multiple pulmonarynodules. Radiculopathy, lumbar region 11/28/2016 Renal failure 02/20/2010 Renal failure, chronic, stage 3 (moderate) ([facility]) folllowing renal transplant Renal stones Steroid long-term [...] of breath, increasing chest pain, or late onsetfever. Taryn Morris MD documented in this encounterMiami Valley Hospital09-20-2023 History of Present illness Narrative* Prachi Doss DO - 06/26/2023 8:52 AM EDT Images from the original note were not [...] visit s/p 6 months out from LT shoulderRCR, SAD/S, biceps tenodesis. Patient was doing well until a few weeks ago. He woke up with some soreness after having bronchitis. Continues to have some soreness with certain movements. Pain historyis noted as above. Is there any overall [...] intolerance, new onset joint pain or swelling, newonset extremity weakness or numbness, new onset auditory [...] at as cyst seen on imaging Prachi Doss D.O. M.P.H. documented in this encounterMiami Valley Hospital08-24-2023 Telephone encounter Note * Telephone Encounter - Mynor Brooks - 05/30/2023 2:30 PM EDT Patient scheduled for PVR 06/11/23 8:20 @ [address] Left message with prep. Appt reminder mailed. [id number] Miscellaneous Notes* Telephone Encounter - Mynor Brooks - 05/30/2023 2:30 PM EDT Patient scheduled for PVR 06/11/23 8:20 @ [address] Left message with prep. Appt reminder mailed. documented in this encounterSPaulding County [id number] History of Present illness Narrative* Jennifer Sutton APRN - HERON - 05/27/2023 9:30 AM EDT [facility] Follow-up Office [...] a few minutes for it to resolve. 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 Chest pain CHF (congestive heart failure) ([facility]) ([facility]) CKD (chronic kidney disease) stage 3, GFR 30-59 ml/min ([facility]) COPD (chronic obstructive pulmonary disease) ([facility]) ESRD (end stage renal disease) ([facility]) s/p renal transplant GERD (gastroesophageal reflux disease) History of blood transfusion History of renal transplant HTN (hypertension) Hx of blood clots hx PE 15 YRS AGO Immunosuppressed status ([facility]) Neurogenic bladder NSTEMI (non-ST elevated myocardial infarction) ([facility]) ([facility]) 12/27/2017 Past Surgical History: Past Surgical History: [...] side and detected w/ Doppler on the leftside. Posterior tibial pulses are detected w/ Doppler [...] kidney transplant--would be unable to obtain a CTA.Discussed with Dr Jauregui--will start with a formal [...] results of testing. . documented in this [facility]06-23-[facility] History of Present illness Narrative* Prachi Doss, DO - 03/29/2023 9:27 AM EDT Images from the original note were not [...] follow up visit S/P Left shoulder arthroscopy, rcrepair, sad/acromioplasty, biceps tenodesis on 01/03/23. Patient states [...] intolerance, new onset joint pain or swelling, newonset extremity weakness or numbness, new onset auditory [...] agreement of plan. All questions answered. Prachi Doss D.O. M.P.H. documented in this encounterMiami Valley Hospital06-22-2023 History of Present illness Narrative* Lazaro Lizarraga, PT - 03/28/2023 7:44 AM EDT Episode Visit Count: 10 Therapist That Will Accept/Oversee The Plan Of Care: ZiaLazaro Start of Care Date: 01/25/23 Onset Date: [...] and treatment included: Therapeutic exercise, Manual therapy, Self-[place] [facility] management, and Patient/Family/Caregiver Education. Goals updated 03/28/2023 Goals for Episode of Care: created on 01/25/23 through 05/17/23 Pt will be able to complete work duties without pain or any functional limitations in 14 weeks or less - Met so far [place] in home exercise program. - Met so [...] Total Treatment Time Minutes (timed/untimed): 41 Lazaro Lizarraga PT documented in this encounterMiami Valley Hospital06-19-2023 History of Present illness Narrative* Lazaro Lizarraga PT - 03/25/2023 8:27 AM EDT Episode Visit Count: 9 Therapist That Will Accept/Oversee The Plan Of Care: Lazaro Lizarraga Start of Care Date: 01/25/23 Onset Date: [...] Total Treatment Time Minutes (timed/untimed): 42 Lazaro Lizarraga PT documented in this encounterMiami Valley Hospital06-16-2023 History of Present illness Narrative* Lazaro Lizarraga PT - 03/22/2023 8:00 AM EDT Episode Visit Count: 8 Therapist That Will Accept/Oversee The Plan Of Care: Lazaro Lizarraga Start of Care Date: 01/25/23 Onset Date: [...] JOSE MARIA Dyer PT documented in this encounterMiami Valley Hospital06-14-2023 Instructions* Patient Instructions* Khanh Mustafa APRN.CNP - 03/20/2023 11:09 AM EDT ASSESSMENT/PLAN: [...] analgesia. - Discussed expected course of illness Khanh Mustafa APRN.CNP Treatment for Viral Upper Respiratory Tract Infections Your body will kill off the virus by itself. Additionally, you can prime your body's immune system.This may help you get better more quickly. Drink lots of fluids Make sure you are eating well Get plenty of rest We do not have any medications that kill off these viruses. Antibiotics are used to treat bacterialinfections; however, they are not active against viral infections. There are some things that mighthelp you feel better, though. Vaporizers, humidifiers, hot showers, and hot fluids help open respiratory and sinus passages [place] Nasal [place] may offer relief of nasal and head [...] worse rather than better documented in this encounterMiami Valley Hospital06-14-2023 History of Present illness Narrative* Khanh Mustafa APRN.CNP - 03/20/2023 11:04 AM EDT This note was created using [employer]. Subjective Marian Koch is a 53 year [...] Wt 69.1 kg (152 lb 6.4 oz) DdC292% BMI 25.36 kg/m PAST MEDICAL HISTORY Diagnosis [...] AI 1-2+ Claudication of both lower extremities ([facility]) 08/22/2017 02/05/19 PVR Johana Jauregui: no stenosis left fem-pop bypass. Unable to get CHEL due to non-compressible vesels11/12/[address] Zavala [facility]: RIGHT: resting CHEL > 1.81, non-compressible arteries; TBI0.40 = PAD; Right ankle: Moderate disease at rest. Right iliofemoral disease. Severe disease noted,post exercise, by tracings. LEFT SIDE: resting CHEL 1.81, non-compressible vessels, CHEL not accurate. 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 On Sensipar in remote past. Kidney dialysis 1988, and 2000 Neurogenic bladder VIC (obstructive sleep apnea) 08/04/2011 declines CPAP Pulmonary embolism ([facility]) 10-12 years ago Pulmonary nodules Foreign body reaction in pulmonary vasculature, ? cause. Extensive evaluation ruled out vasculitis, fungal inffection, pneumoconiosis. May have been from gortex graft .Resulted in multiple pulmonarynodules. Radiculopathy, lumbar region 11/28/2016 Renal failure 02/20/2010 Renal failure, chronic, stage 3 (moderate) ([facility]) folllowing renal transplant Renal stones Steroid long-term [...] needed for Wheezing/Shortness of Breath. Use over 5- 15minutes.^Disp: 1 Package^Rfl: 2 ASTAGRAF XL 0.5 mg [...] analgesia. - Discussed expected course of illness Khanh Mustafa APRN.HARDBOARD PANEL PRINTER documented in this encounterMiami Valley Hospital06-02-2023 History of Present illness Narrative* Lazaro Lizarraga PT - 03/08/2023 3:48 PM EDT Episode Visit Count: 6 Therapist That Will Accept/Oversee The Plan Of Care: Lazaro Lizarraga Start of Care Date: 01/25/23 Onset Date: [...] Total Treatment Time Minutes (timed/untimed): 30 Lazaro Lizarraga PT documented in this encounterMiami Valley Hospital05-09-2023 History of Present illness Narrative* Lazaro Lizarraga PT - 02/12/2023 8:14 AM EDT Episode Visit Count: 3 Therapist That Will Accept/Oversee The Plan Of Care: Lazaro Lizarraga Start of Care Date: 01/25/23 Onset Date: 04/20/22 Patient Identified by Name and Date of : Yes REHABILITATION AND SPORTS THERAPY PHYSICAL THERAPY TREATMENT NOTE ASSESSMENT: Marian Koch tolerated the session with fatigue and expected muscle soreness. He demonstrated improvements in L shoulder flexion ROM. The patient will continue to benefit from ongoingskilled physical therapy to progress toward set goals. [...] and increased to approx 120 degrees with continuedreps, not formally measured) Skilled Intervention: Manual skills to improve joint mobility, ROM, and decrease pain. Utilized anatomy knowledge of the therapist, and assessment of patient's response to intervention. Billing Therapeutic Exercise Treatment Minutes: 25 Manual TherapyTreatment Minutes: 15 Total Treatment Time Minutes (timed/untimed): 40 Nasra Gamble, JOSE MARIA Lizarraga PT documented in this encounterMiami Valley Hospital04-25-2023 History of Present illness Narrative* Lazaro Lizarraga PT - 01/29/2023 12:44 PM EDT Episode Visit Count: 2 Therapist That Will Accept/Oversee The Plan Of Care: Lazaro Lizarraga Start of Care Date: 01/25/23 Onset Date: 04/20/22 Patient Identified by Name and Date of : Yes REHABILITATION AND SPORTS THERAPY PHYSICAL THERAPY TREATMENT NOTE ASSESSMENT: Marian Dsouza Zee tolerated the session with no issues. He [...] Total Treatment Time Minutes (timed/untimed): 38 Lazaro Lizarraga PT documented in this encounterMiami Valley Hospital04-21-2023 History of Present illness Narrative* Lazaro Lizarraga PT - 01/25/2023 1:27 PM EDT Episode Visit Count: 1 Therapist That Will Accept/Oversee The Plan Of Care: Lazaro Lizarraga Start of Care Date: 01/25/23 Onset Date: [...] function, range of motion, and strength. PROMIS (Patient- Reported Outcomes Measurement Information System) scores were reviewed and all domains identified as a rehabilitation concern. Prognosis for therapy is Good due to: current objectiveclinical presentation, good overall health status . He will benefit from skilled therapy services to meet the goals established for this plan of care as noted below. Goals for Episode of Care: created on 01/25/23 through 05/17/23 Pt will be able to complete work duties without pain or any functional limitations in 14 weeks or less [place] in home exercise program. Perform reaching overhead [...] today for L shoulder RCR repair. Avoid AROMof the elbow due to biceps tenodesis. Failed [...] Total Treatment Time Minutes (timed/untimed): 41 Lazaro Lizarraga PT documented in this encounterMiami Valley Hospital04-21-2023 Miscellaneous Notes* Telephone Encounter - Arnie Contreras PA-C - 01/25/2023 12:57 PM EDT Marian is 3 weeks postop. Refill was approved. PDMP website checked and validated. All prescriptions have been APPROPRIATELY filled. No suspiciousactivity was identified. 01/25/2023 by Arnie Contreras PA-C * Telephone Encounter - Sarah Fung - 01/25/2023 10:54 AM EDT Patient has been identified by name and date of : Yes Requested Prescriptions Pending Prescriptions Disp Refills oxyCODONE-acetaminophen (PERCOCET) 5-325 mg tablet 25 tablet 0 Sig: Take 1 tablet by mouth every 6 hours as needed for pain. RX INSTRUCTIONS: Patient aware RX will be sent to pharmacy. No need to notify patient unless it is denied. Sarah Fung documented in this encounterMiami Valley Hospital04-17-2023 History of Present illness Narrative* Maria Elena Dockery MD - 01/21/2023 10:09 AM EDT Images from the original note were not included. Maria Elena Dockery MD Interventional Cardiology [facility] [address], [place] [address] [phone] Chief Complaint Patient presents with: New Patient [...] AI 1-2+ Claudication of both lower extremities ([facility]) 08/22/2017 02/05/[address] Vazqueznic: no stenosis left fem-pop bypass. Unable to get CHEL due to non-compressible vesels11/12/[address] Zavala [facility]: RIGHT: resting CHEL > 1.81, non-compressible arteries; TBI0.40 = PAD; Right ankle: Moderate disease at rest. Right iliofemoral disease. Severe disease noted,post exercise, by tracings. LEFT SIDE: resting CHEL 1.81, non-compressible vessels, CHEL not accurate. 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 On Sensipar in remote past. Kidney dialysis 1988, and 2000 Neurogenic bladder VIC (obstructive sleep apnea) 08/04/2011 declines CPAP Pulmonary embolism ([facility]) 10-12 years ago Pulmonary nodules Foreign body reaction in pulmonary vasculature, ? cause. Extensive evaluation ruled out vasculitis, fungal inffection, pneumoconiosis. May have been from gortex graft .Resulted in multiple pulmonarynodules. Radiculopathy, lumbar region 11/28/2016 Renal failure 02/20/2010 [...] needed for Wheezing/Shortness of Breath. Use over 5- 15minutes. 1 Package 2 ASTAGRAF XL 0.5 mg [...] to correct any errors. documented in this encounterMiami Valley Hospital04-14-2023 History of Present illness Narrative* Abraham Gibbs PA-C - 01/18/2023 11:13 AM EDT POST OP Abraham Gibbs PA-C Orthopaedics [address] [address] Dept: [phone] Mr. Koch presents today for his 2 [...] for repeat clinical evaluation with Dr. Romario Gibbs PA-C documented in this encounterMiami Valley Hospital03-31-2023 Miscellaneous Notes* Telephone Encounter - Sarah Fung - 01/04/2023 11:02 AM EDT Pt notified. Sarah Fung * Telephone Encounter - Molly Terrell PA-C - 01/04/2023 10:46 AM EDT PDMP website checked and validated. All prescriptions have been APPROPRIATELY filled. No suspiciousactivity was identified. 01/04/2023 by Molly Terrell PA-C The following approved medication requests have been transmitted electronically. Requested Prescriptions Signed Prescriptions Disp Refills oxyCODONE-acetaminophen (PERCOCET) 5-325 mg tablet 25 tablet 0 Sig: Take 1 tablet by mouth every 6 hours as needed for pain. Authorizing Provider: MOLLY TERRELL PA-C * Telephone Encounter - Sarah Fung - 01/04/2023 10:13 AM EDT Needs [facility]. The other pharmacy is also out. Updated pharmacy in [facility]. Sarah Fung * Telephone Encounter - Johanna Barber RN - 01/04/2023 9:59 AM EDT Patient calls and reports that [facility] is out of Percocet. Please send new prescription to [facility] in [place]. documented in this encounterMiami Valley Hospital03-23-2023 Miscellaneous Notes* Telephone Encounter - Andreas Sanches RN - 12/27/2022 4:19 PM EDT Informed patient of Dr. Ivy's message below. He verbalized understanding and appreciation for call. Andreas Sanches RN * Telephone Encounter - Andreas Sanches RN - 12/27/2022 4:17 PM EDT ----- Message from Ledy Ivy MD sent at 12/27/2022 12:25 PM EDT ----- Testing is within acceptable range. Continue your current medical treatment. please call and/or send a letter to the patient. Please release results to [facility] documented in this encounterMiami Valley Hospital03-15-2023 Miscellaneous Notes* Telephone Encounter - Candie Segundo - 12/19/2022 12:58 PM EDT Needs at least a week after study to make sure echo is read and report in system. Prachi Doss DO * Telephone Encounter - Candie Segundo - 12/19/2022 12:55 PM EDT Spoke to Dr. Doss, She states this would not give us enough time prior to surgery to get the results. Called and ledt for patient to return call to discuss options. Not sure if we are able to get him into the echo sooner or if we need to move his surgery back. Candie Segundo * Telephone Encounter - Sarah Antonieta - 12/18/2022 3:13 PM EDT Pt calling to report that he had his cardiology appt today. They did EKG and office visit. They want him to have an ECHO prior to clearing him for surgery . The first appointment that he was able to get was 12/26 at [facility]. He is scheduled for surgery 12/27. Asking if this is going to be enough time to get results prior to surgery. Pt was placed on cancellation list for ECHO but understands that it will need to be authorized by his insurance prior. Sarah Fung documented in this encounterMiami Valley Hospital03-14-2023 History of Present illness Narrative* Ledy Ivy MD - 12/18/2022 2:15 PM EDT Images from the original note were not included. [facility] Department of Cardiovascular Medicine SECTION OF CLINICAL CARDIOLOGY OUTPATIENT VISIT DATE December 18, 2022 OUTPATIENT VISIT TYPE NEW PRIMARY CARE PHYSICIAN: Diana Tate PA-C [id number] [place] [address] CHIEF COMPLAINT: Cardiac Clearance HISTORY OF PRESENT [...] AI 1-2+ Claudication of both lower extremities ([facility]) 08/22/2017 02/05/[address] [place] [address] Jauregui: no stenosis left fem-pop bypass. Unable to get CHEL due to non-compressible vesels11/12/[address] Zavala [facility]: RIGHT: resting CHEL > 1.81, non-compressible arteries; TBI0.40 = PAD; Right ankle: Moderate disease at rest. Right iliofemoral disease. Severe disease noted,post exercise, by tracings. LEFT SIDE: resting CHEL 1.81, non-compressible vessels, CHEL not accurate. 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 On Sensipar in remote past. Kidney dialysis 1988, and 2000 Neurogenic bladder VIC (obstructive sleep apnea) 08/04/2011 declines CPAP Pulmonary embolism ([facility]) 10-12 years ago Pulmonary nodules Foreign body reaction in pulmonary vasculature, ? cause. Extensive evaluation ruled out vasculitis, fungal inffection, pneumoconiosis. May have been from gortex graft .Resulted in multiple pulmonarynodules. Radiculopathy, lumbar region 11/28/2016 Renal failure 02/20/2010 Renal failure, chronic, stage 3 (moderate) ([facility]) folllowing renal transplant Renal stones Steroid long-term use Transplant kidney 1993 and 2009 Failed in 2000(right in ', removed in ; left ') PAST SURGICAL [...] bruits, carotids have a normal upstroke, no palpablethyromegaly. Lungs: Clear to auscultation bilaterally, no wheezing or rhonchi. Heart: Regular rhythm, PMI not displaced, S1, S2 normal, no S3, no S4, no heaves, no rub and no murmur. Extremities: No peripheral edema . Grade 2/4 distal pulses bilaterally. CARDIOVASCULAR MEDICINE TESTING: Electrocardiogram: NSR, IMI, RBBB. I have personally reviewed the Electrocardiogram. IMPRESSION: 1. CAD, OR 1991, S/P CABGx4 2005 (ROBERT to LAD, SVGs to OM, ramus and PDA), 12/2017 cath for abnormalstress (CHILD CAREGIVER RCA with collaterals), stable, angina free. 2. [...] overload state. 4. Patient will follow a lead data architect [place] to [place]. CONTACT INFORMATION: Ledy Ivy M.D. Director, Interventional Cardiology, [facility] Clinical Transport Corps Officerroad passenger firer [facility] of Medicine of [facility] Department of Cardiovascular Medicine [facility] [place] [place] [address] documented in this encounterMiami Valley Hospital03-08-2023 Miscellaneous Notes* Telephone Encounter - Arnie Escudero RN - 12/12/2022 8:12 AM EST Appointment scheduled with Dr Ivy on 12/18/22 at . Spoke with pt and he is able to go the appointment. Arnie Escudero RN December 12, 2022 9:54 AM * Telephone Encounter - Sallie Carlisle APRN.HERON - 12/11/2022 3:57 PM EST Please assist with pt moving up his cardiac appt with a [facility] lead data architect prior to surgery 12/27/2022for clearance due to abnormal EKG, JACIN[place]. Pt is open to other locations. [facility] a follow up but will need a sooner one for clearance. documented in this encounterMiami Valley Hospital03-06-2023 History and physical note * Sallie Carlisle APRN.CNP - 12/10/2022 3:13 PM EST Images from the original note were not [...] Immunosuppressive Medication ([facility]) Coronary Artery Disease of [place] 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 ([facility]) Chronic Pain Syndrome Other Osteoporosis Without Current Pathological Fracture Current Mild Episode of Major Depressive Disorder ([facility]) Copd (Chronic Obstructive Pulmonary Disease) ([facility]) Mixed Hyperlipidemia Palpitations Cataracta Traumatic Incomplete Tear [...] of his truck bed and was holding ontoa fire extinguisher that was attached to the side of the truck with his left arm and when he jumpedoff the tailgate his ring got caught on [...] fevers. Neurological: No history of TIA's, stroke, LICENSED BONDSMAN tumor, impaired sensorium, hemiplegia, paraplegia orquadraplegia. No neurological symptoms or problems. Respiratory: Positive for: COPD. Negative for: asthma, pneumonia within 6 weeks, tobacco use, URI < 2 weeks and obstructive sleepapnea. Cardiovascular: Hx fem-fem bypass, following [facility] Positive for: anticoagulation therapy, CAD, DVT/PE (hx), hyperlipidemia, hypertension and open heart surgery (2005) Patient's last office visit The following tests and/or procedures were not performed: cardiac stents. Negative for: arrhythmia, atrial fibrillation, chest pain, CHF, congenital heart defect, recent OR,murmur/valvular heart disease and valve surgery. GI: Positive [...] RIGHT: resting CHEL > 1.81, non-compressible arteries; TBI0.40 = PAD; Right ankle: Moderate disease at rest. Right iliofemoral disease. Severe disease noted,post exercise, by tracings. LEFT SIDE: resting CHEL 1.81, non-compressible vessels, CHEL not accurate. 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 On Sensipar in remote past. Kidney dialysis 1988, and 2000 Neurogenic bladder VIC (obstructive sleep apnea) 08/04/2011 declines CPAP Pulmonary embolism ([facility]) 10-12 years ago Pulmonary nodules Foreign body reaction in pulmonary vasculature, ? cause. Extensive evaluation ruled out vasculitis, fungal inffection, pneumoconiosis. May have been from gortex graft .Resulted in multiple pulmonarynodules. Radiculopathy, lumbar region 11/28/2016 Renal failure 02/20/2010 Renal failure, chronic, stage 3 (moderate) ([facility]) folllowing renal transplant Renal stones Steroid long-term [...] needed for Wheezing/Shortness of Breath. Use over 5- 15minutes. Taking Yes ASTAGRAF XL 0.5 mg capsule [...] 410 QTC Calculation (Bazett) 410 Calculated P Afton 47 Calculated R Afton -52 Calculated T Afton -26 Impression NORMAL SINUS RHYTHM WITH SINUS ARRHYTHMIA COMPLETE RIGHT BUNDLE BRANCH BLOCK LEFT ANTERIOR FASCICULAR BLOCK BIFASCICULAR BLOCK ABNORMAL ECG No results found for this or any previous visit (from the past 04701 hour(s)). Assessment Patient has the following medical conditions which may affect peyton-operative course: Benign prostatic hyperplasia with urinary obstruction Assessment: on rx Neurogenic bladder Assessment: following urology, CIC BID - QID. VIC (obstructive sleep apnea) Assessment: non-compliant with CPAP CAD (coronary artery disease) Assessment: s/p CABG 2006, daily, statin, ASA, BB Claudication of both lower extremities (HCC) Assessment: s/p fem/fem bypass, following vascular at OSH 01/11/2022 Dr. Sutton, [facility] Arterial Duplex RLE 12/19/21 Conclusions [...] Cardiac clearance requested. Pt scheduled 12/18/2022 at [place]. Reviewed red flags and when to seek medical care. Pt verbalized understanding. Current mild episode of major depressive disorder (HCC) Assessment: stable on rx per pt DVT (deep venous thrombosis) ([facility]) Assessment: and PE, tx with Coumadin x 1 year VHD (valvular heart disease) Assessment: mild, 1+ MVI, TVI, JUAN, EF 60% has pending cardiology consult 2018 Echo Pulmonary hypertension (HCC) Assessment: mild, RSVP 41mmHg 2018 echo, pending cardiac consult Hyperparathyroidism ([facility]) Assessment: secondary to renal failure, on rx [...] have a large neck STOP-Bang Score: 3 [id number] Score: Age: <65 Sex: male CHF history: No Hypertension history: Yes Stroke/TIA/thromboembolism history: No Vascular disease history: Yes Diabetes history: No [id number] Score: 2 ARISCAT Score: Age: 51-80 Preoperative [...] and consent discussed: yes. Patient / Responsible Libertarian agrees to proceed: yes Patient / Surrogate [...] 3:13 PM PAGER/CONTACT #: documented in this encounterMiami [facility]03-06-2023 Instructions* Patient Instructions* Sallie Carlisle APRN.CNP - 12/10/2022 3:13 PM EST PATIENT PREOPERATIVE INSTRUCTIONS Prachi Doss,* has scheduled you for your procedure at this surgery center: [facility]: [phone] -- [address] [facility] [address] [facility] [address]. Please read below carefully for your personalized [...] Procedures: - YOU MUST HAVE A RESPONSIBLE SUPERVISOR TUMBLING AND ROLLING TAKE YOU HOME. A LABORER CONCRETE PAVING OR RESEARCH WORKER ENCYCLOPEDIA CANNOT BE MADE A RESPONSIBLE SUPERVISOR TUMBLING AND ROLLING. - We recommend that a responsible person stays with you overnight to take care of you. - You cannot stay in a hotel alone after outpatient surgery. You will not be permitted to have yoursurgery, if you do not have someone to [...] Advance Directive, please fax a copy to [phone] or email to for it to be added to your chart. If you do not have an Advance Directive, you can find the appropriate form and more information at [email or web address]. We recommend that youcomplete the Advance Directive form found on the website and bring it with you the day of your surgery. It can be witnessed and scanned into your chart that day. Sallie Carlisle APRN.HERON documented in this encounterMiami Valley Hospital03-02-2023 History of Present illness Narrative* Prachi Doss, - 12/06/2022 10:04 AM EST Images from the original note were not [...] of his truck bed and was holding ontoa fire extinguisher that was attached to the side of the truck with his left arm and when he jumpedoff the tailgate his ring got caught on [...] intolerance, new onset joint pain or swelling, newonset extremity weakness or numbness, new onset auditory [...] infection, neurovascular injury, failure of procedure, need forrevision operation, loss of life and loss of [...] plan. All questions answered. documented in this encounterMiami Valley Hospital02-10-2023 Miscellaneous Notes* Telephone Encounter - Nery Schultz Ma - 11/16/2022 10:31 AM EST Patient has been scheduled on 12/06/2022. * Telephone Encounter - Nery Schultz Ma - 11/15/2022 4:10 PM EST Images from the original note were not included. ROBBIN Salinas LPN; [facility] 4 hours ago (11:28 AM) Can we please have scheduling assist patient with setting up a visit with Dr. Brittaney Doss?Patient is being referred by Dr. Baldwin for left shoulder pain. Thanks, Meredith * Telephone Encounter - Nara Theodore LPN - 11/15/2022 10:25 AM EST Patient called. Verified name and date of . Patient is doing follow up call to find out if youare having him see Dr. Melara for his shoulder and if so will staff call for follow up? Patientis concerned because he goes back to work in January and wants to make sure he is not waiting unnecessarily. Please review and advise. Nara Theodore LPN documented in this encounterMiami Valley Hospital02-02-2023 History of Present illness Narrative* Maynor Baldwin MD - 11/08/2022 7:57 AM EST Maynor Baldwin MD Department of Orthopaedics Orthopaedics [address] [facility] [address] Dept: [phone] Dept November 08, 2022 CHIEF COMPLAINT: Follow Up and Pain of the Left Shoulder HPI Patient is 6 weeks 3 days post visit left shoulder pain with injection given. Patient states injection only helped for about 4 days. He finished physical therapy yesterday. Continuing home exercises.Taking Tylenol for the pain and does not [...] one of my sports partners in case farley bscap needs to be addressed surgically as opposed [...] anxiety) Maynor Baldwin MD documented in this encounterMiami Valley Hospital02-01-2023 History of Present illness Narrative* Tonny De Guzman, PT - 11/07/2022 11:12 PM EST Episode Visit Count: 10 Therapist That Will [...] to 11/07/2022 and treatment included: Therapeutic exercise, Self-[place] [facility] [place] management, Patient/Family/Caregiver Education, and Body mechanics training. Pt has been seen for 10 visits over 6 weeks with minimal to no improvement despite compliance with all instructions. Updated: 10/17/22 and 11/07/22 Goals for Episode of Care: created on 09/20/22 through 11/01/22 [place] in home exercise program. - MET Patient [...] all recommendations, his L shoulder condition is thesame or worse functionally. 5: Therapist spent a [...] Tonny De Guzman PT documented in this encounterMiami Valley Hospital01-30-2023 History of Present illness Narrative* Tonny De Guzman PT - 11/05/2022 3:32 PM EST Episode Visit Count: 9 Therapist That Will Accept/Oversee The Plan Of Care: Tonny De Guzman PT Start of Care Date: 09/20/22 Onset Date: 04/20/22 Patient Identified by Name and Date of : Yes REHABILITATION AND SPORTS THERAPY PHYSICAL THERAPY TREATMENT NOTE ASSESSMENT: Marian Dsouza [place] tolerated the session with increased symptoms. He demonstrated difficulty with abduction AAROM. The patient will continue to benefit from ongoing skilled physical therapyto progress toward set goals. PLAN FOR NEXT [...] Treatment Time Minutes (timed/untimed): 43 Nasra Clairehali, JOSE MARIA De Guzman PT documented in this encounterMiami Valley Hospital01-25-2023 History of Present illness Narrative* Tonny De Guzman PT - 10/31/2022 5:32 PM EST Episode Visit Count: 8 Therapist That Will [...] in L shoulder recently. He reports continued difficultywith reaching tasks away from his body such as driving and working. He reports increased pain todaythat he attributes to wrenching at work. He [...] Tonny De Guzman PT documented in this encounterMiami Valley Hospital01-18-2023 History of Present illness Narrative* Tonny De Guzman PT - 10/24/2022 5:31 PM EST Episode Visit Count: 7 Therapist That Will [...] Tonny De Guzman PT documented in this encounterMiami Valley Hospital01-17-2023 Miscellaneous Notes* Telephone Encounter - Nikki Ramírez Ma - 10/23/2022 9:05 AM EST Pt read mychart * Telephone Encounter - Diana Tate PA-C - 10/22/2022 6:06 PM EST See [employer] message Please have him come in for recheck lab in 3 months and complete outstanding BMD. Telephone on 10/22/22 PTH INTACT BLD CALCIUM IONIZED BLOOD PHOSPHORUS INORGANIC CROSS-LINK N-TELO BL Thanks, Herman Tate PA-C documented in this encounterMiami Valley Hospital01-16-2023 History of Present illness Narrative* Tonny De Guzman PT - 10/22/2022 4:32 PM EST Episode Visit Count: 6 Therapist That Will [...] rin. The patient will continue to benefit fromongoing skilled physical therapy to progress toward set [...] out to the side and can barely rock picker a cup of water with reaching [...] 40 Total Treatment Time Minutes (timed/untimed): 40 JOSE MARIA Dyer PT documented in this encounterMiami Valley Hospital01-13-2023 History of Present illness Narrative* Tonny De Guzman PT - 10/19/2022 3:32 PM EST Episode Visit Count: 5 Therapist That Will [...] his shoulder is still bothering him. Pt statesthat pain is waking him up at night [...] 30 Total Treatment Time Minutes (timed/untimed): 30 JOSE MARIA Dyer PT documented in this encounterMiami Valley Hospital01-11-2023 History of Present illness Narrative* Tonny De Guzman PT - 10/17/2022 7:49 PM EST Episode Visit Count: 4 Therapist That Will [...] dressing, and grooming. He has made minimal progress.Patient continues to present with impairments in ADL's, independence in exercise, overall function,range of motion, strength , and symptom management that interfere with sleeping;grooming;dressing;reaching behind back;reaching overhead . Current prognosis is Fair due to: clinical presentation;chronic nature of impairments;limited tolerance to activity;poor past response to therapy intervention. He will benefit from continued skilled therapy services to meet the updated goals for this plan of care as noted below. Updated: 10/17/22 Goals for Episode of Care: created on 09/20/22 through 11/01/22 [place] in home exercise program. - Partially Met, [...] Patient to be seen for Therapeutic exercise (98473);Manual therapy (95551);Self- [place] management (67113);Patient/Family/Caregiver Education;Body Mechanics Training PLAN FOR NEXT VISIT: [...] his functional ability with L UE. He reportscompliance with HEP but that wand exercises aggravate his shoulder because it is difficult to relax. He also now reports symptoms in L axilla, posterior L shoulder and also down into L forearm and wrist. Patient Goals: decrease pain Functional Limitations: sleeping;grooming;dressing;reaching behind back;reaching overhead Pain: Pain Pain Level: [...] Tonny De Guzman PT documented in this encounterMiami Valley Hospital01-03-2023 History of Present illness Narrative* Tonny De Guzman PT - 10/09/2022 3:34 PM EST Episode Visit Count: 3 Therapist That Will [...] resting shoulder due to pain and fatigue. Self-Senior Living Management: 1: *Education in use of towel roll under shoulder blade with sleeping to decrease pulling sensationin anterior shoulder 2: * Education in importance [...] 8 Total Treatment Time Minutes (timed/untimed): 38 Nasra Gamble, HAZARDOUS MATERIALS HANDLER Tonny De Guzman PT documented in this encounterMiami Valley Hospital12-21-2022 History of Present illness Narrative* Tonny De Guzman PT - 09/26/2022 3:33 PM EST Episode Visit Count: 2 Therapist That Will [...] that depending on how long it lasts, faustino also have to have an injection via [...] 45 Total Treatment Time Minutes (timed/untimed): 45 Nasrasaud Gamble, HAZARDOUS MATERIALS HANDLER Tonny De Guzman PT documented in this encounterMiami Valley Hospital12-19-2022 History of Present illness Narrative* Maynor Baldwin MD - 09/24/2022 3:05 PM ESTAssociated Order(s): Large Joint Arthro/Inj: L subacromial bursa Post-Procedure Diagnose(s): Chronic left shoulder pain Maynor Baldwin MD Department of Orthopaedics Orthopaedics [address] [facility] [address] Dept: [phone] Dept September 24, 2022 CHIEF COMPLAINT: Established [...] subacromial bursa Informed Consent Consent Obtained: Verbal [place] Protocol A moment to CARE was completed. [...] anxiety) Maynor Baldwin MD documented in this encounterMiami Valley Hospital12-16-2022 History of Present illness Narrative* Tonny De Guzman PT - 09/21/2022 10:03 AM EST Episode Visit Count: 1 Therapist That Will [...] partial thickness RTC tear that interferes with sleeping;grooming;dressing;reaching behind back;reaching overhead. He presents with impairments in ADL's, independence in exercise, overall function, range of motion, strength , symptom management, and tissue tenderness. PROMIS (Patient- Reported Outcomes Measurement Information System) scores were reviewed [...] of Care: created on 09/20/22 through 11/01/22 [place] in home exercise program. Patient will decrease [...] Planned: 12 Planned Treatment Interventions: Therapeutic exercise (63822);Manual therapy (18408);Self-care homemanagement (93548);Patient/Family/Caregiver Education;Body Mechanics Training PLAN FOR NEXT VISIT: [...] again. 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 [...] Speed's: Left Negative Education: Education Learning Preferences: Demonstration;Explanation;Performance;Printed Materials Barriers: None Learning/educational needs: Procedure / Surgery;Plan of Care;Home exercise program;Posture;Body Mechanics Education Provided: Yes, see treatment interventions for education provided Education Provided To: Patient Education Mode/Type: Demonstration;Explanation/Discussion;Literature/Printed Materials;Performance Response to Education/Teach Back: States/Identifies;Return Demonstration;Requires Review/AdditionalEducation TREATMENT: PT Treatment Interventions: Therapeutic Exercise Evaluation [...] Tonny De Guzman PT documented in this encounterMiami Valley Hospital12-10-2022 Instructions* Patient Instructions* Diana Tate PA-C - 09/15/2022 11:01 AM EST BONE MINERAL DENSITY PATIENT INSTRUCTIONS Bone mineral density testing measures the amount of calcium in certain parts of your bones. This information determines how strong your bones are. The test is used to detect osteoporosis, a disease in which the bone's mineral content and density are low, increasing a person's risk of fractures. Thelumbar spine (lower back) and the hip are [...] your usual activities immediately. documented in this encounterMiami Valley Hospital12-09-2022 History of Present illness Narrative* Diana Tate PA-C - 09/14/2022 4:05 PM EST 52 year old male with c/o here for f/u Right shoulder jumping off work truck, ring caught on fire extinguisher, jerked left arm. Neighbor helped him get off the truck. Pain since, unable to lift arm above shoulder level, keeps him awake at night when turning. 05/21/[address] Ryder peng left shoulder imingement 06/05/2022 MRI left shoulder: [...] severely trabeculated on Cysto. PVR 305ml. Continues selfcath Feels depression controlled, tired a lot but [...] AI 1-2+ Claudication of both lower extremities ([facility]) 08/22/2017 02/05/[address] [place] [address] Vazqueznic: no stenosis left fem-pop bypass. Unable to get CHEL due to non-compressible vesels11/12/[address] Zavala [facility]: RIGHT: resting CHEL > 1.81, non-compressible arteries; TBI0.40 = PAD; Right ankle: Moderate disease at rest. Right iliofemoral disease. Severe disease noted,post exercise, by tracings. LEFT SIDE: resting CHEL 1.81, non-compressible vessels, CHEL not accurate. 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 Radiculopathy, lumbar region 11/28/2016 Renal failure 02/20/2010 [...] Immunosuppressive Medication (Hcc) Coronary Artery Disease of [place] 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 (Hcc) Chronic Pain Syndrome Other Osteoporosis Without Current Pathological Fracture Current Mild Episode of Major Depressive Disorder (Hcc) Copd (Chronic Obstructive Pulmonary Disease) (Hcc) Mixed Hyperlipidemia Palpitations Cataracta Current Outpatient Medications [...] needed for Wheezing/Shortness of Breath. Use over 5- 15minutes. 1 Package 2 ASTAGRAF XL 0.5 mg capsule Take 1 mg by mouth once daily. 11 alendronate (FOSAMAX) 70 mg tablet Take 1 tablet by mouth once each week. Take with a full glass ofwater, on an empty stomach; do NOT lie [...] flexion or abduction to 85 degrees, negative Shackelford's, negative Woodard, pain with reaching behind back, negative lift off. Tender trigger points through coracobrachialis supraspinatus and subscapularis. Myofascial release to these areas with a little bit of improvement but no improvement in range of motion. ASSESSMENT/PLAN: 1. Coronary artery disease involving te-moak coronary artery of te-moak heart without angina pectoris- ICD9: 414.01, ICD10: I25.10 (primary diagnosis) Stable [...] Chronic obstructive pulmonary disease, unspecified COPD type ([facility]) - ICD9: 496, ICD10: J44.9 Stable, minimal use of inhalers. Continue medicines. 5. Current mild episode of major depressive disorder, unspecified whether recurrent ([facility]) - ICD9: 296.21, ICD10: F32.0 Stable, continue medication. 6. Gastroesophageal reflux disease without esophagitis - ICD9: 530.81, ICD10: K21.9 Asymptomatic. Continue medications 7. H/O kidney transplant - ICD9: V42.0, ICD10: Z94.0 Followed by transplant team, Dr. Robledos, - ALENDRONATE 70 MG TABLET - VITAMIN D 25 HYDROXY - PTH INTACT BLD - PHOSPHORUS INORGANIC - DXA-AXIAL SKELETON WITH VFA 8. Renal failure, chronic, stage 3 (moderate) ([facility]) - ICD9: 585.3, ICD10: N18.30 - eGFR: Stable - Counseled on avoiding regular use of NSAIDs, adequate hydration, potential risk of IV dye - ALENDRONATE 70 MG TABLET - CBC + DIFF - COMP METABOLIC PANEL - VITAMIN D 25 HYDROXY - PTH INTACT BLD - PHOSPHORUS INORGANIC - DXA-AXIAL SKELETON WITH VFA 9. Hyperparathyroidism ([facility]) - ICD9: 252.00, ICD10: E21.3 Recheck labs - ALENDRONATE 70 MG TABLET - VITAMIN D 25 HYDROXY - PTH INTACT BLD - PHOSPHORUS INORGANIC - DXA-AXIAL SKELETON WITH VFA 10. Hyperhomocysteinemia ([facility]) - ICD9: 270.4, ICD10: E72.11 11. Traumatic [...] TABLET Diana Tate PA-C documented in this encounterMiami Valley Hospital10-17-2022 History of Present illness Narrative* Marisela Casper PA-C - 07/23/2022 4:14 PM EDT This note was created using Vestar Capital Partnersriter. Subjective Marian Koch is a 52 year [...] RV size NL, RVSF ocardiogram Dr. Dameon Mca: LV size NL, mild concenric LVH, EF 56%. RV size NL. RVSF NL. AI 1-2+ Claudication of both lower extremities (HCC) 08/22/2017 02/05/19 PVR [place] Jauregui: no stenosis left fem-pop bypass. Unable to get CHEL due to non-compressible vesels11/12/[address] Zavala [facility]: RIGHT: resting CHEL > 1.81, non-compressible arteries; TBI0.40 = PAD; Right ankle: Moderate disease at rest. Right iliofemoral disease. Severe disease noted,post exercise, by tracings. LEFT SIDE: resting CHEL 1.81, non-compressible vessels, CHEL not accurate. 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 On Sensipar in remote past. Kidney dialysis 1988, and 2000 Neurogenic bladder VIC (obstructive sleep apnea) 08/04/2011 declines CPAP Pulmonary embolism ([facility]) 10-12 years ago Pulmonary nodules Foreign body reaction in pulmonary vasculature, ? cause. Extensive evaluation ruled out vasculitis, fungal inffection, pneumoconiosis. May have been from gortex graft .Resulted in multiple pulmonarynodules. Radiculopathy, lumbar region 11/28/2016 Renal failure 02/20/2010 Renal failure, chronic, stage 3 (moderate) ([facility]) folllowing renal transplant Renal stones Steroid long-term use Transplant kidney 1993 and 2009 Failed in 2000(right in , removed in ; left ') Current Outpatient [...] needed for Wheezing/Shortness of Breath. Use over 5- 15minutes. 1 Package 2 gabapentin (NEURONTIN) 300 mg capsule Take 2 capsules by mouth three times daily for 180 days. 180 capsule 1 ASTAGRAF XL 0.5 mg capsule Take 1 mg by mouth once daily. 11 alendronate (FOSAMAX) 70 mg tablet Take 1 tablet by mouth once each week. Take with a full glass ofwater, on an empty stomach; do NOT lie down for 30minutes. (Patient not taking: No sig reported) 12tablet 3 DULoxetine (CYMBALTA) 30 mg capsule Take [...] agreeable. - COVID WITH FLUA+B, ROUTINE Marisela Casper PA-C documented in this encounterMiami Valley Hospital09-01-2022 History of Present illness Narrative* Maynor Baldwin MD - 06/07/2022 3:51 PM EDTAssociated Order(s): Large Joint Arthro/Inj: L subacromial bursa Post-Procedure Diagnose(s): Acute pain of left shoulder; Impingement syndrome of left shoulder Maynor Baldwin MD Department of Orthopaedics Orthopaedics [address] [place] [address] Dept: [phone] Dept June 07, 2022 CHIEF COMPLAINT: Established [...] subacromial bursa Informed Consent Consent Obtained: Verbal [place] Protocol A moment to CARE was completed. [...] with adhesive capsulitis. Additional findings as described. Glass Vial Bending Conveyor Feeder: RADHA Transcribe Date/Time: Jun 05 2022 12:28P Dictated by : AGUSTÍN WELCH MD This examination was interpreted and the report reviewed and electronically signed by: RAMY BAILEY MD on Jun 05 2022 2:39PM EST Results-Findings * * *Final Report* * * DATE OF EXAM: Jun 05 2022 11:25AM WR [id number] - MRI SHOULDER WO IVCON LT / PROCEDURE REASON: multiple diagnoses * * * * Physician Interpretation * * * * EXAMINATION: MRI SHOULDER WO IVCON HISTORY: Acute pain of left shoulder Traumatic [...] each week. Take with a full glass ofwater, on an empty stomach; do NOT lie [...] anxiety) Maynor Baldwin MD documented in this encounterMiami Valley Hospital08-15-2022 History of Present illness Narrative* Maynor Baldwin MD - 05/21/2022 8:34 AM EDT Maynor Baldwin MD Department of Orthopaedics Orthopaedics [address] [id number] Dept: [phone] Dept May 21, 2022 Consultation requested by [...] the shoulder and greater tuberosity. Mild discomfort atthe bicipital groove and coracoid. Active range of [...] shoulder as seen in 2017. Etiology uncertain Glass Vial Bending Conveyor Feeder: RADHA Transcribe Date/Time: May 04 2022 5:02P Dictated by : GENESIS NWEMAN DO This examination was interpreted and the [...] both lower extremities (HCC) 08/22/2017 02/05/[address] [place] [address] Jauregui: no stenosis left fem-pop bypass. Unable to get CHEL due to non-compressible vesels11/12/[address] Zavala [facility]: RIGHT: resting CHEL > 1.81, non-compressible arteries; TBI0.40 = PAD; Right ankle: Moderate disease at rest. Right iliofemoral disease. Severe disease noted,post exercise, by tracings. LEFT SIDE: resting CHEL 1.81, non-compressible vessels, CHEL not accurate. 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 On Sensipar in remote past. Kidney dialysis 1988, and 2000 Neurogenic bladder VIC (obstructive sleep apnea) 08/04/2011 declines CPAP Pulmonary embolism ([facility]) 10-12 years ago Pulmonary nodules Foreign body reaction in pulmonary vasculature, ? cause. Extensive evaluation ruled out vasculitis, fungal inffection, pneumoconiosis. May have been from gortex graft .Resulted in multiple pulmonarynodules. Radiculopathy, lumbar region 11/28/2016 Renal failure 02/20/2010 Renal failure, chronic, stage 3 (moderate) ([facility]) folllowing renal transplant Renal stones Steroid long-term use Transplant kidney 1993 and 2009 Failed in 2000(right in '94, removed in '; left '10) Past Surgical History: PAST SURGICAL HISTORY Procedure [...] each week. Take with a full glass ofwater, on an empty stomach; do NOT lie [...] Isabel Guillaume [address] [facility] [address] M Ines Tate PA-C [address] [facility] [address] Maynor Baldwin MD documented in this encounterMiami [facility]08-02-2022 NoteHNO ID: [id number] Author: Kris Badillo, DO Service: ? Author Type: Physician Type: Progress Notes Filed: 05/17/2022 12:54 AM Note Text: [facility] LOCATION: [address] [place] [address] ESTABLISHED PATIENT PATIENT INFO: Marian Koch 52 [...] 83.8 Lymph% (%) Date Value 06/05/2021 10.8 Crisp% (%) Date Value 06/05/2021 5.0 Eosin% (%) Date Value 06/05/2021 0.1 Baso% (%) Date Value 06/05/2021 0.3 Abs Neut (ANC) (k/uL) Date Value 06/05/2021 5.65 Abs Crisp (k/uL) Date Value 06/05/2021 0.34 Abs Eosin [...] CHEL > 1.81, no (more content not included)...[facility]08-02-2022 History of Present illness Narrative* Kris Badillo DO - 05/08/2022 4:01 PM EDT Images from the original note were not included. [facility] LOCATION: [address] [place] [address] ESTABLISHED PATIENT PATIENT INFO: Marian Koch 52 [...] 83.8 Lymph% (%) Date Value 06/05/2021 10.8 Crisp% (%) Date Value 06/05/2021 5.0 Eosin% (%) Date Value 06/05/2021 0.1 Baso% (%) Date Value 06/05/2021 0.3 Abs Neut (ANC) (k/uL) Date Value 06/05/2021 5.65 Abs Crisp (k/uL) Date Value 06/05/2021 0.34 Abs Eosin [...] each week. Take with a full glass ofwater, on an empty stomach; do NOT lie [...] AI 1-2+ Claudication of both lower extremities ([facility]) 08/22/2017 02/05/19 PVR Johana Vazqueznic: no stenosis left fem-pop bypass. Unable to get CHEL due to non-compressible vesels11/12/[address] Zavala [facility]: RIGHT: resting CHEL > 1.81, non-compressible arteries; TBI0.40 = PAD; Right ankle: Moderate disease at rest. Right iliofemoral disease. Severe disease noted,post exercise, by tracings. LEFT SIDE: resting CHEL 1.81, non-compressible vessels, CHEL not accurate. 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 On Sensipar in remote past. Kidney dialysis 1988, and 2000 Neurogenic bladder VIC (obstructive sleep apnea) 08/04/2011 declines CPAP Pulmonary embolism (HCC) 10-12 years ago Pulmonary nodules Foreign body reaction in pulmonary vasculature, ? cause. Extensive evaluation ruled out vasculitis, fungal inffection, pneumoconiosis. May have been from gortex graft .Resulted in multiple pulmonarynodules. Radiculopathy, lumbar region 11/28/2016 Renal failure 02/20/2010 Renal failure, chronic, stage 3 (moderate) (HCC) folllowing renal transplant Renal stones Steroid long-term use Transplant kidney 1993 and 2009 Failed in 2000(right in , removed in ; left ') Smoking Status Reviewed: Yes REVIEW OF SYSTEMS [...] appearing, alert, in no acute distress, and well- hydrated, well nourished Skin: Skin color, texture, turgor [...] with more than 50% of the total [id number] time of the visit in counseling / coordination of care. Kris Badillo DO MBA documented in this encounterMiami Valley Hospital07-29-2022 Instructions* Patient Instructions* Isabel Guillaume APRN.CNP - 05/04/2022 5:13 PM [...] thin washcloth between the bag and your skin.Apply the ice bag to the area for at least 20 minutes. Do this at least 4 times per day. Using the ice for longer times and more frequently is OK. NEVER APPLY ICE DIRECTLY TO THE SKIN. COMPRESS: Compression means to apply pressure around the injured area such as with a splint, cast or an mary bandage. Compression decreases swelling and improves comfort. [...] pillows when lying down. documented in this encounterMiami Valley Hospital07-29-2022 History of Present illness Narrative* Jesenia Benedict RT(R) - 05/04/2022 5:00 PM EDT Radiology Service Progress Note PATIENT NAME: Marian Koch DATE OF SERVICE: May 04, 2022 TIME: 4:54 PM PATIENT IDENTITY VERIFICATION COMPLETED USING TWO (2) IDENTIFIERS: Name and Date of confirmedby patient verbally. FALL SCREENING: Has the patient had 2 falls in the last year or 1 fall with injury or currently using an Ambulatory Assistive Device (Walker, Cane, Wheelchair, Crutches, etc.)? No PATIENT GENDER DATA: Male PATIENT RELEVANT IMPLANT DATA REVIEWED: Not Applicable RADIOLOGY DEPARTMENT: General X-ray: Exam(s) Completed: Upper Extremity X- Ray(s): Shoulder, AP / TRUE AP left PERIPHERAL IV DATA: Not applicable SIGNED BY: RT Bob(R) May 04, 2022 4:54 PM documented in this encounterMiami Valley Hospital07-29-2022 History of Present illness Narrative* Isabel Guillaume APRN.HARDBOARD PANEL PRINTER - 05/04/2022 4:52 PM EDT Images from the original note were not included. This note was created using [employer]. Subjective Marian Koch is a 52 year [...] history is provided by the patient. No humanities and languages professor was used. Shoulder Injury The incident occurred more than 2 days ago. The incident occurred at home. Injury mechanism: see HPI. The left shoulder is affected. The pain is at a severity of 6/10. The pain is moderate. The pain has been constant since onset. The pain does not radiate. There is no history of shoulder injury. Hehas no other injuries. There is no history [...] both lower extremities (HCC) 08/22/2017 02/05/[address] [place] [address] Jauregui: no stenosis left fem-pop bypass. Unable to get CHEL due to non-compressible vesels11/12/[address] Zavala [facility]: RIGHT: resting CHEL > 1.81, non-compressible arteries; TBI0.40 = PAD; Right ankle: Moderate disease at rest. Right iliofemoral disease. Severe disease noted,post exercise, by tracings. LEFT SIDE: resting CHEL 1.81, non-compressible vessels, CHEL not accurate. 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 On Sensipar in remote past. Kidney dialysis 1988, and 2000 Neurogenic bladder VIC (obstructive sleep apnea) 08/04/2011 declines CPAP Pulmonary embolism ([facility]) 10-12 years ago Pulmonary nodules Foreign body reaction in pulmonary vasculature, ? cause. Extensive evaluation ruled out vasculitis, fungal inffection, pneumoconiosis. May have been from gortex graft .Resulted in multiple pulmonarynodules. Radiculopathy, lumbar region 11/28/2016 Renal failure 02/20/2010 Renal failure, chronic, stage 3 (moderate) ([facility]) folllowing renal transplant Renal stones Steroid long-term use Transplant kidney 1993 and 2009 Failed in 2000(right in , removed in '01; left '10) PAST SURGICAL HISTORY Procedure Laterality Date CABG [...] each week. Take with a full glass ofwater, on an empty stomach; do NOT lie [...] will follow up with ortho. Isabel Guillaume APRN.HERON documented in this encounterMiami Valley Hospital07-15-2022 NoteHNO ID: [id number] Author: Eleni Shaw RN Service: ? Author Type: Registered Nurse Type: Progress Notes Filed: 04/26/2022 12:23 PM Note Text: Marian Koch [id number] 1970 April 20, 2022 Diagnoses: Urinary Retention [...] Findings: Uroflow : Patient arrived with a machado catheter- No. Patient voided 332.4 ml; Curve: [...] understanding of instructions. Eleni Shaw RN cc: Kris Badillo, Urodynamic Results Uroflow PVR 350 Flow 7 CMG First sensation 349 Max volume 936 Uninhibited bladder contractions no Leakage no EMG nl Nl compliance UPP not interpreted Leakage MUCP Pressure Flow PVR 475 Flow 9 EMG nl Low detrusor pressure Summary Atonic bladder Celso Chou Jo Annricki , [facility]07-[facility] History of Present illness Narrative* Eleni Shaw RN - 04/20/2022 1:07 PM EDT Marian Koch [id number] 1970 April 20, 2022 Diagnoses: Urinary Retention [...] Findings: Uroflow : Patient arrived with a machado catheter- No. Patient voided 332.4 ml; Curve: [...] understanding of instructions. Eleni Shaw RN cc: Kris Badillo DO documented in this encounterMiami Valley Hospital07-15-2022 Instructions* Patient Instructions* Eleni Shaw RN - 04/20/2022 7:44 AM EDT POST PROCEDURE INSTRUCTIONS Marian Koch April 20, 2022 Increase your fluid intake. FOLLOW UP APPOINTMENT: 05/08/22 at 3:00 pm with Kris Badillo DO in the [address] [place] [address] office. WHEN TO CALL THE DOCTOR: If you develop fever (over 101 degrees) or chills. If you cannot urinate or empty your bladder. If you develop symptoms of a urinary tract infection such as burning or pain with urination, increased frequency of urination or foul smelling urine If you have any other questions or problems. Office phone number; [phone] documented in this encounterMiami Valley Hospital05-31-2022 NoteHNO ID: [id number] Author: Kris Badillo DO Service: ? Author Type: Physician Type: Procedures Filed: 03/06/2022 3:57 PM Note Text: CYSTOSCOPY PROCEDURE NOTE: Marian Koch is a 52 year old male who presents with urinary retention for cystoscopy. Pt ID verified with patient: Yes Procedure verified with patient: Yes Procedure confirmed with physician and coding support specialist: Yes Sign In History and [...] Sign Out: Sign Out Discussion: Completed Physician: Kris Badillo DO A urinalysis was performed revealing [...] oral fluid intake as directed. ASSESSMENT/PLAN: Marian Meet Koch 52 year old male is here [...] Consider Urolift, if LUCIANO on UDS ? [facility] note* Kris Badillo DO - 03/06/2022 3:52 PM EDT Procedure(s): CYSTOSCOPY CYSTOSCOPY PROCEDURE NOTE: Marian Koch is a 52 year old male who presents with urinary retention for cystoscopy. Pt ID verified with patient: Yes Procedure verified with patient: Yes Procedure confirmed with physician and coding support specialist: Yes Sign In History and Physical Exam reviewed and is unchanged. . Informed Consent Discussed: Yes. Risks, benefits, alternatives and personnel discussed with patientwho consents to proceed. Sign in Communication: Completed Time Out: Team Confirms the Correct Patient, Correct Procedure; Cystoscopy, Correct Site and Site Marking, Correct Position (if applicable). Affirmation of Time Out: Yes Sign Out: Sign Out Discussion: Completed Physician: Kris Badillo DO A urinalysis was performed revealing no evidence of infection. The benefits, risks, alternatives of the cystoscopy procedure and personnel were discussed with thepatient. The verbal consent was obtained and the [...] the flexible cystoscope was removed atraumatically. The patienttolerated the procedure without complications. Patient was given [...] UDS Consider Urolift, if LUCIANO on UDS Kris Badillo DO documented in this encounterMiami Valley Hospital05-31-2022 Miscellaneous Notes* Telephone Encounter - Yamilet Gee - 03/06/2022 10:53 AM EDT Patient called in to make an appointment with a provider. He will be seen in [place] today by Dr. Badillo, and is aware he will most [facility]. [facility]ee * Telephone Encounter - Bre Bahena - 03/06/2022 10:28 AM EDT Left vm pt needs an appt with any provider for long history of urinary retentiion. Pina documented in this encounterMiami Valley Hospital05-31-2022 History of Present illness Narrative* Sawyer Lawson PA-C - 03/06/2022 8:49 AM EDT Images from the original note were not [...] he had seen him in the past forthis same concern with doing a cystoscopy, he [...] each week. Take with a full glass ofwater, on an empty stomach; do NOT lie [...] AI 1-2+ Claudication of both lower extremities ([facility]) 08/22/2017 02/05/[address] [place] [address] Jauregui: no stenosis left fem-pop bypass. Unable to get CHEL due to non-compressible vesels11/12/[address] Zavala [facility]: RIGHT: resting CHEL > 1.81, non-compressible arteries; TBI0.40 = PAD; Right ankle: Moderate disease at rest. Right iliofemoral disease. Severe disease noted,post exercise, by tracings. LEFT SIDE: resting CHEL 1.81, non-compressible vessels, CHEL not accurate. 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 On Sensipar in remote past. Kidney dialysis 1988, and 2000 Neurogenic bladder VIC (obstructive sleep apnea) 08/04/2011 declines CPAP Pulmonary embolism ([facility]) 10-12 years ago Pulmonary nodules Foreign body reaction in pulmonary vasculature, ? cause. Extensive evaluation ruled out vasculitis, fungal inffection, pneumoconiosis. May have been from gortex graft .Resulted in multiple pulmonarynodules. Radiculopathy, lumbar region 11/28/2016 Renal failure 02/20/2010 Renal failure, chronic, stage 3 (moderate) ([facility]) folllowing renal transplant Renal stones Steroid long-term use Transplant kidney 1993 and 2009 Failed in 2000(right in , removed in ; left ') PAST SURGICAL HISTORY: PAST SURGICAL [...] C (98.6 F), temperature source Temporal, resp. rate14, height 165.1 cm (5' 5 ), weight [...] > 611 ml > Consult with Denice/Johana ALVAF urology I spent a total of 30 minutes on the date of the service which included preparing to see the patient, face to face patient care, completing clinical documentation, obtaining and/or reviewing separately obtained history, performing a medically appropriate examination, counseling and educating the pat ient/family/caregiver, ordering medications, tests, or procedures, and care coordination. MANDI Carrasco MT, PA-C * Nara Theodore LPN - 03/06/2022 8:32 AM EDT CC Post Void Residual HPI: Marian Koch is a 52 year old male. The patient is here now for an appointment with MANDI Carrasco MT, PA-COV. Procedure: Explained procedure to patient and verbalizes understanding. Performed a PVR. Patient urinated and instructed to empty bladder as much as possible just prior to having PVR done using bladder ultrasound scanner. Results of scan: 611 mL The patient tolerated the procedure well. Plan: Appointment with Sawyer. documented in this encounterMiami Valley Hospital05-16-2022 History of Present illness Narrative* M Ines Tate PA-C - 02/19/2022 8:00 AM EDT 52 year old male with c/o concerns over urination, peeing a lot, just dribbling . Frequent urination over last 6 months. See urology [facility], had cystoscopy, bled x 2 days after. Over last 5-6 months no fever, chills. Lately has been nauseated. 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 Dane Ortiz Last records: Current medications: Prednisone 5mg dily [...] of major depressive disorder, unspecified whether recurrent (formerly [facility]) Current medications: Duloxetine 30mg daily Chronic pain syndrome Claudication of both lower extremities (hcc) 01/11/2022 vascular follow up [facility] Arterial Duplex RLE 12/19/21 [...] RIGHT: resting CHEL > 1.81, non-compressible arteries; TBI0.40 = PAD; Right ankle: Moderate disease at rest. Right iliofemoral disease. Severe disease noted,post exercise, by tracings. LEFT SIDE: resting CHEL 1.81, non-compressible vessels, CHEL not accurate. 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 Radiculopathy, lumbar region 11/28/2016 Renal failure 02/20/2010 [...] Immunosuppressive Medication (Hcc) Coronary Artery Disease of [place] 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 (Hcc) Chronic [...] needed for Wheezing/Shortness of Breath. Use over 5- 15minutes. 1 Package 2 gabapentin (NEURONTIN) 300 mg capsule Take 2 capsules by mouth three times daily for 180 days. 180 capsule 1 ASTAGRAF XL 0.5 mg capsule Take 1 mg by mouth once daily. 11 alendronate (FOSAMAX) 70 mg tablet Take 1 tablet by mouth once each week. Take with a full glass ofwater, on an empty stomach; do NOT lie [...] external lesions. Prostate 1/4+ size,no nodules, non-tender. Nonodules. Stool light brown GUAIAC sent to lab Extrem: no clubbing or cyanosis. Edema: none. Extremities are warm and pink with prompt capillary refill. ASSESSMENT/PLAN: 1. BPH with obstruction/lower urinary tract symptoms - ICD9: 600.01, 599.69, ICD10: N40.1, N13.8 (primary diagnosis) - PSA/PROSTSPECAG DIAG - CONSULT TO UROLOGY - OCCULT BLD EXAM-DIAG - US PELVIS BLADDER 2. 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) - [...] needed Diana Tate PA-C documented in this encounterMiami Valley Hospital09-03-2021 History of Past illness Narrative* Problem Noted Date Resolved Date Screen for colon cancer 06/09/2021 06/14/20 21 Dialysis patient 02/20/2010 11/28/2012 documented as of this encounter (statuses as of 03/06/2022) [facility] of Past illness Narrative* Problem Noted Date Resolved Date Screen for colon cancer 06/09/2021 06/14/20 21 Dialysis patient 02/20/2010 11/28/2012 documented as of this encounter (statuses as of 03/06/2022) [facility] of Past illness Narrative* Problem Noted Date Resolved Date Screen for colon cancer 06/09/2021 06/14/20 21 Dialysis patient 02/20/2010 11/28/2012 documented as of this encounter (statuses as of 03/06/2022) [facility] of Past illness Narrative* Problem Noted Date Resolved Date Screen for colon cancer 06/09/2021 06/14/20 21 Dialysis patient 02/20/2010 11/28/2012 documented as of this encounter (statuses as of 03/07/2022) [facility] of Past illness Narrative* Problem Noted Date Resolved Date Screen for colon cancer 06/09/2021 06/14/20 21 Dialysis patient 02/20/2010 11/28/2012 documented as of this encounter (statuses as of 03/08/2022) [facility] of [facility] illness Narrative* Problem Noted Date Resolved Date Screen for colon cancer 06/09/2021 06/14/20 21 Dialysis patient 02/20/2010 11/28/2012 documented as of this encounter (statuses as of 04/08/2022) [facility] of [facility] illness Narrative* Problem Noted Date Resolved Date Screen for colon cancer 06/09/2021 06/14/20 21 Dialysis patient 02/20/2010 11/28/2012 documented as of this encounter (statuses as of 04/20/2022) [facility] Narrative* Problem Noted Date Resolved Date Screen for colon cancer 06/09/2021 06/14/20 21 Dialysis patient 02/20/2010 11/28/2012 documented as of this encounter (statuses as of 05/04/2022) [facility] Narrative* Problem Noted Date Resolved Date Screen for colon cancer 06/09/2021 06/14/20 21 Dialysis patient 02/20/2010 11/28/2012 documented as of this encounter (statuses as of 05/17/2022) [facility] Narrative* Problem Noted Date Resolved Date Screen for colon cancer 06/09/2021 06/14/20 21 Dialysis patient 02/20/2010 11/28/2012 documented as of this encounter (statuses as of 05/29/2022) [facility] Narrative* Problem Noted Date Resolved Date Screen for colon cancer 06/09/2021 06/14/20 21 Dialysis patient 02/20/2010 11/28/2012 documented as of this encounter (statuses as of 07/02/2022) [facility] Narrative* Problem Noted Date Resolved Date Screen for colon cancer 06/09/2021 06/14/20 21 Dialysis patient 02/20/2010 11/28/2012 documented as of this encounter (statuses as of 07/23/2022) [facility] Narrative* Problem Noted Date Resolved Date Screen for colon cancer 06/09/2021 06/14/20 21 Dialysis patient 02/20/2010 11/28/2012 documented as of this encounter (statuses as of 09/15/2022) [facility] Narrative* Problem Noted Date Resolved Date Screen for colon cancer 06/09/2021 06/14/20 21 Dialysis patient 02/20/2010 11/28/2012 documented as of this encounter (statuses as of 09/21/2022) [facility] Narrative* Problem Noted Date Resolved Date Screen for colon cancer 06/09/2021 06/14/20 21 Dialysis patient 02/20/2010 11/28/2012 documented as of this encounter (statuses as of 09/27/2022) [address]03-2021 History of Past illness Narrative* Problem Noted Date Resolved Date Screen for colon cancer 06/09/2021 06/14/20 21 Dialysis patient 02/20/2010 11/28/2012 documented as of this encounter (statuses as of 10/11/2022) [address]03-2021 History of Past illness Narrative* Problem Noted Date Resolved Date Screen for colon cancer 06/09/2021 06/14/20 21 Dialysis patient 02/20/2010 11/28/2012 documented as of this encounter (statuses as of 10/18/2022) [address]03-2021 History of Past illness Narrative* Problem Noted Date Resolved Date Screen for colon cancer 06/09/2021 06/14/20 21 Dialysis patient 02/20/2010 11/28/2012 documented as of this encounter (statuses as of 10/22/2022) [address]03-2021 History of Past illness Narrative* Problem Noted Date Resolved Date Screen for colon cancer 06/09/2021 06/14/20 21 Dialysis patient 02/20/2010 11/28/2012 documented as of this encounter (statuses as of 10/23/2022) [address]03-2021 History of Past illness Narrative* Problem Noted Date Resolved Date Screen for colon cancer 06/09/2021 06/14/20 21 Dialysis patient 02/20/2010 11/28/2012 documented as of this encounter (statuses as of 10/23/2022) [address]03-2021 History of Past illness Narrative* Problem Noted Date Resolved Date Screen for colon cancer 06/09/2021 06/14/20 21 Dialysis patient 02/20/2010 11/28/2012 documented as of this encounter (statuses as of 10/23/2022) [address]03-2021 History of Past illness Narrative* Problem Noted Date Resolved Date Screen for colon cancer 06/09/2021 06/14/20 21 Dialysis patient 02/20/2010 11/28/2012 documented as of this encounter (statuses as of 10/25/2022) [address]03-2021 History of Past illness Narrative* Problem Noted Date Resolved Date Screen for colon cancer 06/09/2021 06/14/20 21 Dialysis patient 02/20/2010 11/28/2012 documented as of this encounter (statuses as of 10/31/2022) [address]03-2021 History of Past illness Narrative* Problem Noted Date Resolved Date Screen for colon cancer 06/09/2021 06/14/20 21 Dialysis patient 02/20/2010 11/28/2012 documented as of this encounter (statuses as of 11/06/2022) [address]03-2021 History of Past illness Narrative* Problem Noted Date Resolved Date Screen for colon cancer 06/09/2021 06/14/20 21 Dialysis patient 02/20/2010 11/28/2012 documented as of this encounter (statuses as of 11/08/2022) [address]03-2021 History of Past illness Narrative* Problem Noted Date Resolved Date Screen for colon cancer 06/09/2021 06/14/20 21 Dialysis patient 02/20/2010 11/28/2012 documented as of this encounter (statuses as of 11/08/2022) [address]03-2021 History of Past illness Narrative* Problem Noted Date Resolved Date Screen for colon cancer 06/09/2021 06/14/20 21 Dialysis patient 02/20/2010 11/28/2012 documented as of this encounter (statuses as of 11/16/2022) [address]03-2021 History of Past illness Narrative* Problem Noted Date Resolved Date Screen for colon cancer 06/09/2021 06/14/20 21 Dialysis patient 02/20/2010 11/28/2012 documented as of this encounter (statuses as of 12/06/2022) [address]03-2021 History of Past illness Narrative* Problem Noted Date Resolved Date Screen for colon cancer 06/09/2021 06/14/20 21 Dialysis patient 02/20/2010 11/28/2012 documented as of this encounter (statuses as of 12/07/2022) [address]03-2021 History of Past illness Narrative* Problem Noted Date Resolved Date Screen for colon cancer 06/09/2021 06/14/20 21 Dialysis patient 02/20/2010 11/28/2012 documented as of this encounter (statuses as of 12/12/2022) [facility]-03-2021 History of Past illness Narrative* Problem Noted Date Resolved Date Screen for colon cancer 06/09/2021 06/14/20 21 Dialysis patient 02/20/2010 11/28/2012 documented as of this encounter (statuses as of 12/17/2022) [facility]-03-2021 History of Past illness Narrative* Problem Noted Date Resolved Date Screen for colon cancer 06/09/2021 06/14/20 21 Dialysis patient 02/20/2010 11/28/2012 documented as of this encounter (statuses as of 12/18/2022) [facility]03-2021 History of Past illness Narrative* Problem Noted Date Resolved Date Screen for colon cancer 06/09/2021 06/14/20 21 Dialysis patient 02/20/2010 11/28/2012 documented as of this encounter (statuses as of 12/21/2022) [facility]2021 History of Past illness Narrative* Problem Noted Date Resolved Date Screen for colon cancer 06/09/2021 06/14/20 21 Dialysis patient 02/20/2010 11/28/2012 documented as of this encounter (statuses as of 12/27/2022) [facility]2021 History of Past illness Narrative* Problem Noted Date Resolved Date Screen for colon cancer 06/09/2021 06/14/20 21 Dialysis patient 02/20/2010 11/28/2012 documented as of this encounter (statuses as of 12/27/2022) [facility]2021 History of Past illness Narrative* Problem Noted Date Resolved Date Screen for colon cancer 06/09/2021 06/14/20 21 Dialysis patient 02/20/2010 11/28/2012 documented as of this encounter (statuses as of 01/04/2023) [facility]2021 History of Past illness Narrative* Problem Noted Date Resolved Date Screen for colon cancer 06/09/2021 06/14/20 21 Dialysis patient 02/20/2010 11/28/2012 documented as of this encounter (statuses as of 01/04/2023) [facility]2021 History of Past illness Narrative* Problem Noted Date Resolved Date Screen for colon cancer 06/09/2021 06/14/20 21 Dialysis patient 02/20/2010 11/28/2012 documented as of this encounter (statuses as of 01/19/2023) [address]03-2021 History of Past illness Narrative* Problem Noted Date Resolved Date Screen for colon cancer 06/09/2021 06/14/20 21 Dialysis patient 02/20/2010 11/28/2012 documented as of this encounter (statuses as of 01/21/2023) [address]03-2021 History of Past illness Narrative* Problem Noted Date Resolved Date Screen for colon cancer 06/09/2021 06/14/20 21 Dialysis patient 02/20/2010 11/28/2012 documented as of this encounter (statuses as of 01/25/2023) [address]03-2021 History of Past illness Narrative* Problem Noted Date Resolved Date Screen for colon cancer 06/09/2021 06/14/20 21 Dialysis patient 02/20/2010 11/28/2012 documented as of this encounter (statuses as of 01/25/2023) [address]03-2021 History of Past illness Narrative* Problem Noted Date Resolved Date Screen for colon cancer 06/09/2021 06/14/20 21 Dialysis patient 02/20/2010 11/28/2012 documented as of this encounter (statuses as of 01/29/2023) [place] [address]-03-2021 History of Past illness Narrative* Problem Noted Date Resolved Date Screen for colon cancer 06/09/2021 06/14/20 21 Dialysis patient 02/20/2010 11/28/2012 documented as of this encounter (statuses as of 02/12/2023) [address]03-2021 History of Past illness Narrative* Problem Noted Date Resolved Date Screen for colon cancer 06/09/2021 06/14/20 21 Dialysis patient 02/20/2010 11/28/2012 documented as of this encounter (statuses as of 03/08/2023) [address]03-2021 History of Past illness Narrative* Problem Noted Date Resolved Date Screen for colon cancer 06/09/2021 06/14/20 21 Dialysis patient 02/20/2010 11/28/2012 documented as of this encounter (statuses as of 03/20/2023) [address]03-2021 History of Past illness Narrative* Problem Noted Date Resolved Date Screen for colon cancer 06/09/2021 06/14/20 21 Dialysis patient 02/20/2010 11/28/2012 documented as of this encounter (statuses as of 03/22/2023) [address]03-2021 History of Past illness Narrative* Problem Noted Date Resolved Date Screen for colon cancer 06/09/2021 06/14/20 21 Dialysis patient 02/20/2010 11/28/2012 documented as of this encounter (statuses as of 03/25/2023) [address]03-2021 History of Past illness Narrative* Problem Noted Date Resolved Date Screen for colon cancer 06/09/2021 06/14/20 21 Dialysis patient 02/20/2010 11/28/2012 documented as of this encounter (statuses as of 03/28/2023) [address]03-2021 History of Past illness Narrative* Problem Noted Date Resolved Date Screen for colon cancer 06/09/2021 06/14/20 21 Dialysis patient 02/20/2010 11/28/2012 documented as of this encounter (statuses as of 03/29/2023) [address]03-2021 History of Past illness Narrative* Problem Noted Date Diagnosed Date Resolved Date Screen for colon cancer 06/09/2021 09/0 05/2021 Dialysis patient 02/20/2010 11/28/2012 documented as of this encounter (statuses as of 06/27/2023) [address]03-2021 History of Past illness Narrative* Problem Noted Date Diagnosed Date Resolved Date Screen for colon cancer 06/09/2021 09/0 05/2021 Dialysis patient 02/20/2010 11/28/2012 documented as of this encounter (statuses as of 08/06/2023) [address]03-2021 History of Past illness Narrative* Problem Noted Date Diagnosed Date Resolved Date Screen for colon cancer 06/09/2021 09/0 05/2021 Dialysis patient 02/20/2010 11/28/2012 documented as of this encounter (statuses as of 11/29/2023) [address]03-2021 History of Past illness Narrative* Problem Noted Date Diagnosed Date Resolved Date Screen for colon cancer 06/09/2021 09/0 05/2021 Dialysis patient 02/20/2010 11/28/2012 documented as of this encounter (statuses as of 12/07/2023) [facility]-03-2021 History of Past illness Narrative* Problem Noted Date Diagnosed Date Resolved Date Screen for colon cancer 06/09/2021 09/0 05/2021 Dialysis patient 02/20/2010 11/28/2012 documented as of this encounter (statuses as of 12/30/2023) [facility]05-04-2021 Evaluation note* Diagnosis Stage 3 chronic kidney disease, unspecified whether stage 3a or 3b CKD 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) Peripheral vascular disease, unspecified documented in this encounter [facility] Work Phone: 1(137) 828-421311-14-2020 History of Present illness Narrative* Saeed Olivera Tech (Rt) - 08/20/2020 11:00 AM EST Radiology Service Progress Note PATIENT NAME: Marian Koch DATE OF SERVICE: August 20, 2020 TIME: 10:55 AM PATIENT IDENTITY VERIFICATION COMPLETED USING TWO (2) IDENTIFIERS: Name and Date of confirmedby patient verbally. FALL SCREENING: Has the patient had 2 falls in the last year or 1 fall with injury or currently using an Ambulatory Assistive Device (Walker, Cane, Wheelchair, Crutches, etc.)? No PATIENT GENDER DATA: Male PATIENT RELEVANT IMPLANT DATA REVIEWED: Yes RADIOLOGY DEPARTMENT: General X-ray: Exam(s) Completed: Lower Extremity X- Ray(s): Foot, Right and Wt. Bearing: PERIPHERAL IV DATA: Not applicable SIGNED BY: RT Kierra August 20, 2020 10:55 AM [facility] Diagnosis Benign prostatic hyperplasia with urinary obstruction- Primary Other age-related cataract of both eyes H/O kidney transplant Kidney replaced by transplant [facility] Benign prostatic hyperplasia with urinary obstruction- Primary Neurogenic bladder Neurogenic bladder, NOS [facility] Diagnosis BPH with obstruction/lower urinary tract symptoms- Primary Hypertrophy of prostate with urinary obstruction and other lower urinary tract symptoms (LUTS) 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) Mixed [...] or radiculitis, unspecified [facility] Benign prostatic hyperplasia with urinary obstruction- Primary [facility] Benign prostatic hyperplasia with urinary obstruction- Primary [facility] Diagnosis Acute pain of left [...] of left shoulder [facility] Diagnosis Acute pain of left shoulder- Primary Impingement syndrome of left shoulder Other affections of shoulder region, not elsewhere classified [facility] Diagnosis Bronchitis- Primary Bronchitis, not specified as acute or chronic [facility] Diagnosis Coronary artery disease involving [place] coronary artery of [place] heart without angina pectoris- Primary Mixed hyperlipidemia [...] ClinicEvaluation note* Diagnosis Coronary artery disease involving [place] coronary artery of [place] heart without angina pectoris Claudication of both [...] unspecified Renal failure, chronic, stage 3 (moderate) (HCC) Other osteoporosis without current pathological fracture documented [...] shoulder region, unspecified [facility] Diagnosis Pre-operative examination- Primary Preoperative examination, unspecified Benign prostatic hyperplasia with urinary obstruction Neurogenic bladder Neurogenic bladder, NOS VIC (obstructive sleep apnea) Obstructive sleep apnea (adult) (pediatric) Coronary artery disease involving [place] coronary artery of [place] heart without angina pectoris Claudication of both lower extremities ([facility]) Chronic obstructive pulmonary disease, unspecified COPD type ([facility]) Abnormal EKG Nonspecific abnormal electrocardiogram (ECG) (EKG) Current mild episode of major depressive disorder, unspecified whether recurrent ([facility]) Deep vein thrombosis (DVT) of proximal lower extremity, unspecified chronicity, unspecified laterality ([facility]) VHD (valvular heart disease) Endocarditis, valve unspecified, [...] shoulder region, unspecified [facility] Diagnosis Coronary artery disease involving [place] coronary artery of [place] heart without angina pectoris- Primary Essential hypertension [...] shoulder region, unspecified [facility] Diagnosis Coronary artery disease involving [place] coronary artery of [place] heart without angina pectoris Essential hypertension Unspecified [...] shoulder region, unspecified [facility] Diagnosis Postoperative pain- Primary Other acute postoperative pain [facility] Diagnosis Postoperative pain Other acute postoperative pain [facility] Diagnosis S/P left rotator cuff repair- Primary S/P shoulder surgery Other postprocedural status [facility] Diagnosis Coronary artery disease involving [place] coronary artery of [place] heart without angina pectoris Claudication of both lower extremities ([facility]) Mixed hyperlipidemia [facility] Diagnosis S/P left rotator cuff repair- Primary S/P shoulder surgery Other postprocedural status [facility] Diagnosis S/P shoulder surgery- Primary Other postprocedural status [facility] Diagnosis S/P shoulder surgery- Primary Other postprocedural status [facility] Diagnosis S/P shoulder surgery- Primary Other postprocedural status [facility]* Diagnosis Sore throat- Primary Acute pharyngitis COPD with exacerbation (HCC) Obstructive chronic bronchitis with exacerbation [facility] Diagnosis Atherosclerosis of [place] artery of both lower extremities with intermittent claudication ([facility]) documented in this encounter [facility] note* Diagnosis S/P shoulder surgery- Primary Other postprocedural status [facility] Diagnosis Postoperative pain- Primary Other acute postoperative pain S/P left rotator cuff repair S/P shoulder surgery Other postprocedural status Chronic left shoulder pain Pain in joint, shoulder region Traumatic incomplete tear of left rotator cuff, initial encounter Impingement syndrome of left shoulder Other affections of shoulder region, not elsewhere classified documented in this encounter [facility] note* Diagnosis Atherosclerosis of artery of extremity with intermittent claudication (HCC)- Primary documented in this encounter [facility] note* Diagnosis S/P left rotator cuff repair- Primary documented in this encounter [facility] note* Diagnosis Acute COVID-19- Primary COPD with exacerbation (HCC) Obstructive chronic bronchitis with exacerbation documented in this encounter [facility] note* Diagnosis Kidney replaced by transplant- Primary Essential hypertension Unspecified essential hypertension Vitamin D deficiency Hyperparathyroidism (CMS/HCC) Hyperparathyroidism, unspecified Benign prostatic hyperplasia without lower urinary tract symptoms Osteoporosis with current pathological fracture, unspecified osteoporosis type, initial encounter Stage 3b chronic kidney disease (CMS/HCC) documented in this encounter [facility] Work Phone: Evaluation note* Diagnosis Hospital discharge follow-up- Primary Other follow-up examination H/O kidney transplant Kidney replaced by transplant Chronic renal failure, stage 3a (HCC) Acute renal failure superimposed on stage 3a chronic kidney disease, unspecified acute renal failure type (HCC) 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) Influenza A with pneumonia Influenza with pneumonia Chronic obstructive pulmonary disease, unspecified COPD type (HCC) Viral pneumonia Viral pneumonia, unspecified Consolidation of left lower lobe of lung (HCC) documented in this encounter [facility] note* Diagnosis Influenza A with pneumonia- Primary Influenza with pneumonia documented in this encounter [facility] note* Diagnosis Kidney replaced by transplant- Primary Essential hypertension Unspecified essential hypertension Vitamin D deficiency Hyperparathyroidism (CMS/HCC) Hyperparathyroidism, unspecified Benign prostatic hyperplasia without lower urinary tract symptoms documented in this encounter [facility] Work Phone: Evaluation note* Diagnosis Peripheral vascular disease (HCC)- Primary Peripheral vascular disease, unspecified Claudication of both lower extremities (HCC) Coronary artery disease involving [place] coronary artery of [place] heart without angina pectoris Mixed hyperlipidemia documented in this encounter [facility] note* Diagnosis Persistent cough for 3 weeks or longer- Primary COPD exacerbation (HCC) Obstructive chronic bronchitis with exacerbation Swelling of hand Swelling of limb Persistent cough for 3 weeks or longer documented in this encounter [facility] note* Diagnosis Atherosclerosis of [place] artery 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)- Primary Aftercare following surgery of the circulatory system Aftercare following surgery of the circulatory system, NEC [facility] Diagnosis Atherosclerosis of [place] artery 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) documented in this encounter [facility] note* Diagnosis Hospital discharge follow-up- Primary Other follow-up examination Scarring of lower left lung Pneumonia of right lower lobe due to infectious organism H/O kidney transplant Kidney replaced by transplant Renal failure, chronic, stage 3 (moderate) (HCC) 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) Unspecified disorder of immune mechanism Swelling of left forearm Swelling of limb Hernia of abdominal wall Ventral hernia, unspecified, without mention of obstruction or gangrene Heel spur, left 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 and thrombosis of subclavian veins Arterial occlusive disease Embolism and thrombosis of unspecified artery documented in this encounter [facility] note* Diagnosis Swelling of arm- Primary Swelling of limb documented in this encounter [facility] note* Diagnosis Atherosclerosis of [place] artery 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)- Primary documented in this encounter [facility] note* Diagnosis Pre-operative examination- Primary Preoperative examination, unspecified Colon cancer screening Special screening for malignant neoplasms, colon Chronic obstructive pulmonary disease, unspecified COPD type (HCC) VIC (obstructive sleep apnea) Obstructive sleep apnea (adult) (pediatric) Pulmonary nodules Other nonspecific abnormal finding of lung field Claudication of both lower extremities (HCC) 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) Mixed hyperlipidemia Deep vein thrombosis (DVT) of proximal lower extremity, unspecified chronicity, unspecified laterality (HCC) Gastroesophageal reflux disease without esophagitis Esophageal reflux H/O kidney transplant Kidney replaced by transplant Hyperparathyroidism (HCC) Hyperparathyroidism, unspecified Other osteoporosis without current pathological fracture Current mild episode of major depressive disorder, unspecified whether recurrent (HCC) Palpitations Pre-operative examination- Primary Preoperative examination, unspecified Benign prostatic hyperplasia with urinary obstruction Neurogenic bladder Neurogenic bladder, NOS VIC (obstructive sleep apnea) Obstructive sleep apnea (adult) (pediatric) Coronary artery disease involving [place] coronary artery of [place] heart without angina pectoris Claudication of both lower extremities (HCC) Chronic obstructive pulmonary disease, unspecified COPD type (HCC) Abnormal EKG Nonspecific abnormal electrocardiogram (ECG) (EKG) Current mild episode of major depressive disorder, unspecified whether recurrent (HCC) Deep vein thrombosis (DVT) of proximal lower extremity, unspecified chronicity, unspecified laterality (HCC) VHD (valvular heart disease) Endocarditis, valve unspecified, unspecified cause Pulmonary hypertension (HCC) Other chronic pulmonary heart diseases Hyperparathyroidism (HCC) Hyperparathyroidism, unspecified H/O kidney transplant Kidney replaced by transplant Gastroesophageal reflux disease without esophagitis Esophageal reflux Mixed hyperlipidemia Other osteoporosis without current pathological fracture Pulmonary nodules Other nonspecific abnormal finding of lung field Pulmonary nodule- Primary Solitary pulmonary nodule [facility] Diagnosis Pre-operative examination- Primary Preoperative examination, unspecified Colon cancer screening Special screening for malignant neoplasms, colon Chronic obstructive pulmonary disease, unspecified COPD type (HCC) VIC (obstructive sleep apnea) Obstructive sleep apnea (adult) (pediatric) Pulmonary nodules Other nonspecific abnormal finding of lung field Claudication of both lower extremities (HCC) 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) Mixed hyperlipidemia Deep vein thrombosis (DVT) of proximal lower extremity, unspecified chronicity, unspecified laterality (HCC) Gastroesophageal reflux disease without esophagitis Esophageal reflux H/O kidney transplant Kidney replaced by transplant Hyperparathyroidism (HCC) Hyperparathyroidism, unspecified Other osteoporosis without current pathological fracture Current mild episode of major depressive disorder, unspecified whether recurrent (HCC) Palpitations Pre-operative examination- Primary Preoperative examination, unspecified Benign prostatic hyperplasia with urinary obstruction Neurogenic bladder Neurogenic bladder, NOS VIC (obstructive sleep apnea) Obstructive sleep apnea (adult) (pediatric) Coronary artery disease involving te-moak coronary artery of te[place] heart without angina pectoris Claudication of both lower extremities (HCC) Chronic obstructive pulmonary disease, unspecified COPD type (HCC) Abnormal EKG Nonspecific abnormal electrocardiogram (ECG) (EKG) Current mild episode of major depressive disorder, unspecified whether recurrent (HCC) Deep vein thrombosis (DVT) of proximal lower extremity, unspecified chronicity, unspecified laterality (HCC) VHD (valvular heart disease) Endocarditis, valve unspecified, unspecified cause Pulmonary hypertension (HCC) Other chronic pulmonary heart diseases Hyperparathyroidism (HCC) Hyperparathyroidism, unspecified H/O kidney transplant Kidney replaced by transplant Gastroesophageal reflux disease without esophagitis Esophageal reflux Mixed hyperlipidemia Other osteoporosis without current pathological fracture Pulmonary nodules Other nonspecific abnormal finding of lung field Pneumonia of right lower lobe due to infectious organism [facility] Diagnosis Pre-operative examination- Primary Preoperative examination, unspecified Colon cancer screening Special screening for malignant neoplasms, colon Chronic obstructive pulmonary disease, unspecified COPD type (HCC) VIC (obstructive sleep apnea) Obstructive sleep apnea (adult) (pediatric) Pulmonary nodules Other nonspecific abnormal finding of lung field Claudication of both lower extremities (HCC) 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) Mixed hyperlipidemia Deep vein thrombosis (DVT) of proximal lower extremity, unspecified chronicity, unspecified laterality (HCC) Gastroesophageal reflux disease without esophagitis Esophageal reflux H/O kidney transplant Kidney replaced by transplant Hyperparathyroidism (HCC) Hyperparathyroidism, unspecified Other osteoporosis without current pathological fracture Current mild episode of major depressive disorder, unspecified whether recurrent (HCC) Palpitations Pre-operative examination- Primary Preoperative examination, unspecified Benign prostatic hyperplasia with urinary obstruction Neurogenic bladder Neurogenic bladder, NOS VIC (obstructive sleep apnea) Obstructive sleep apnea (adult) (pediatric) Coronary artery disease involving te[place] coronary artery of [place] heart without angina pectoris Claudication of both lower extremities (HCC) Chronic obstructive pulmonary disease, unspecified COPD type (HCC) Abnormal EKG Nonspecific abnormal electrocardiogram (ECG) (EKG) Current mild episode of major depressive disorder, unspecified whether recurrent (HCC) Deep vein thrombosis (DVT) of proximal lower extremity, unspecified chronicity, unspecified laterality (HCC) VHD (valvular heart disease) Endocarditis, valve unspecified, unspecified cause Pulmonary hypertension (HCC) Other chronic pulmonary heart diseases Hyperparathyroidism (HCC) Hyperparathyroidism, unspecified H/O kidney transplant Kidney replaced by transplant Gastroesophageal reflux disease without esophagitis Esophageal reflux Mixed hyperlipidemia Other osteoporosis without current pathological fracture Pulmonary nodules Other nonspecific abnormal finding of lung field Persistent cough for 3 weeks or longer [facility] Diagnosis Pre-operative examination- Primary Preoperative examination, unspecified Colon cancer screening Special screening for malignant neoplasms, colon Chronic obstructive pulmonary disease, unspecified COPD type (HCC) VIC (obstructive sleep apnea) Obstructive sleep apnea (adult) (pediatric) Pulmonary nodules Other nonspecific abnormal finding of lung field Claudication of both lower extremities (HCC) 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) Mixed hyperlipidemia Deep vein thrombosis (DVT) of proximal lower extremity, unspecified chronicity, unspecified laterality (HCC) Gastroesophageal reflux disease without esophagitis Esophageal reflux H/O kidney transplant Kidney replaced by transplant Hyperparathyroidism (HCC) Hyperparathyroidism, unspecified Other osteoporosis without current pathological fracture Current mild episode of major depressive disorder, unspecified whether recurrent (HCC) Palpitations Pre-operative examination- Primary Preoperative examination, unspecified Benign prostatic hyperplasia with urinary obstruction Neurogenic bladder Neurogenic bladder, NOS VIC (obstructive sleep apnea) Obstructive sleep apnea (adult) (pediatric) Coronary artery disease involving [place] coronary artery of [place] heart without angina pectoris Claudication of both lower extremities (HCC) Chronic obstructive pulmonary disease, unspecified COPD type (HCC) Abnormal EKG Nonspecific abnormal electrocardiogram (ECG) (EKG) Current mild episode of major depressive disorder, unspecified whether recurrent (HCC) Deep vein thrombosis (DVT) of proximal lower extremity, unspecified chronicity, unspecified laterality (HCC) VHD (valvular heart disease) Endocarditis, valve unspecified, unspecified cause Pulmonary hypertension (HCC) Other chronic pulmonary heart diseases Hyperparathyroidism (HCC) Hyperparathyroidism, unspecified H/O kidney transplant Kidney replaced by transplant Gastroesophageal reflux disease without esophagitis Esophageal reflux Mixed hyperlipidemia Other osteoporosis without current pathological fracture Pulmonary nodules Other nonspecific abnormal finding of lung field Influenza A with pneumonia Influenza with pneumonia [facility] Diagnosis Pre-operative examination- Primary Preoperative examination, unspecified Colon cancer screening Special screening for malignant neoplasms, colon Chronic obstructive pulmonary disease, unspecified COPD type (HCC) VIC (obstructive sleep apnea) Obstructive sleep apnea (adult) (pediatric) Pulmonary nodules Other nonspecific abnormal finding of lung field Claudication of both lower extremities (HCC) 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) Mixed hyperlipidemia Deep vein thrombosis (DVT) of proximal lower extremity, unspecified chronicity, unspecified laterality (HCC) Gastroesophageal reflux disease without esophagitis Esophageal reflux H/O kidney transplant Kidney replaced by transplant Hyperparathyroidism (HCC) Hyperparathyroidism, unspecified Other osteoporosis without current pathological fracture Current mild episode of major depressive disorder, unspecified whether recurrent (HCC) Palpitations Pre-operative examination- Primary Preoperative examination, unspecified Benign prostatic hyperplasia with urinary obstruction Neurogenic bladder Neurogenic bladder, NOS VIC (obstructive sleep apnea) Obstructive sleep apnea (adult) (pediatric) Coronary artery disease involving [place] coronary artery of [place] heart without angina pectoris Claudication of both lower extremities (HCC) Chronic obstructive pulmonary disease, unspecified COPD type (HCC) Abnormal EKG Nonspecific abnormal electrocardiogram (ECG) (EKG) Current mild episode of major depressive disorder, unspecified whether recurrent (HCC) Deep vein thrombosis (DVT) of proximal lower extremity, unspecified chronicity, unspecified laterality (HCC) VHD (valvular heart disease) Endocarditis, valve unspecified, unspecified cause Pulmonary hypertension (HCC) Other chronic pulmonary heart diseases Hyperparathyroidism (HCC) Hyperparathyroidism, unspecified H/O kidney transplant Kidney replaced by transplant Gastroesophageal reflux disease without esophagitis Esophageal reflux Mixed hyperlipidemia Other osteoporosis without current pathological fracture Pulmonary nodules Other nonspecific abnormal finding of lung field Foot pain, left Pain in limb [facility] Diagnosis Pre-operative examination- Primary Preoperative examination, unspecified Colon cancer screening Special screening for malignant neoplasms, colon Chronic obstructive pulmonary disease, unspecified COPD type (HCC) VIC (obstructive sleep apnea) Obstructive sleep apnea (adult) (pediatric) Pulmonary nodules Other nonspecific abnormal finding of lung field Claudication of both lower extremities (HCC) 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) Mixed hyperlipidemia Deep vein thrombosis (DVT) of proximal lower extremity, unspecified chronicity, unspecified laterality (HCC) Gastroesophageal reflux disease without esophagitis Esophageal reflux H/O kidney transplant Kidney replaced by transplant Hyperparathyroidism (HCC) Hyperparathyroidism, unspecified Other osteoporosis without current pathological fracture Current mild episode of major depressive disorder, unspecified whether recurrent (HCC) Palpitations Acute pain of left shoulder Pre-operative examination- Primary Preoperative examination, unspecified Benign prostatic hyperplasia with urinary obstruction Neurogenic bladder Neurogenic bladder, NOS VIC (obstructive sleep apnea) Obstructive sleep apnea (adult) (pediatric) Coronary artery disease involving [place] coronary artery of te[place] heart without angina pectoris Claudication of both lower extremities (HCC) Chronic obstructive pulmonary disease, unspecified COPD type (HCC) Abnormal EKG Nonspecific abnormal electrocardiogram (ECG) (EKG) Current mild episode of major depressive disorder, unspecified whether recurrent (HCC) Deep vein thrombosis (DVT) of proximal lower extremity, unspecified chronicity, unspecified laterality (HCC) VHD (valvular heart disease) Endocarditis, valve unspecified, unspecified cause Pulmonary hypertension (HCC) Other chronic pulmonary heart diseases Hyperparathyroidism (HCC) Hyperparathyroidism, unspecified H/O kidney transplant Kidney replaced by transplant Gastroesophageal reflux disease without esophagitis Esophageal reflux Mixed hyperlipidemia Other osteoporosis without current pathological fracture Pulmonary nodules Other nonspecific abnormal finding of lung field [facility] Diagnosis Pre-operative examination- Primary Preoperative examination, unspecified Colon cancer screening Special screening for malignant neoplasms, colon Chronic obstructive pulmonary disease, unspecified COPD type (HCC) VIC (obstructive sleep apnea) Obstructive sleep apnea (adult) (pediatric) Pulmonary nodules Other nonspecific abnormal finding of lung field Claudication of both lower extremities (HCC) 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) Mixed hyperlipidemia Deep vein thrombosis (DVT) of proximal lower extremity, unspecified chronicity, unspecified laterality (HCC) Gastroesophageal reflux disease without esophagitis Esophageal reflux H/O kidney transplant Kidney replaced by transplant Hyperparathyroidism (HCC) Hyperparathyroidism, unspecified Other osteoporosis without current pathological fracture Current mild episode of major depressive disorder, unspecified whether recurrent (HCC) Palpitations Pre-operative examination- Primary Preoperative examination, unspecified Benign prostatic hyperplasia with urinary obstruction Neurogenic bladder Neurogenic bladder, NOS VIC (obstructive sleep apnea) Obstructive sleep apnea (adult) (pediatric) Coronary artery disease involving [place] coronary artery of [place] heart without angina pectoris Claudication of both lower extremities (HCC) Chronic obstructive pulmonary disease, unspecified COPD type (HCC) Abnormal EKG Nonspecific abnormal electrocardiogram (ECG) (EKG) Current mild episode of major depressive disorder, unspecified whether recurrent (HCC) Deep vein thrombosis (DVT) of proximal lower extremity, unspecified chronicity, unspecified laterality (HCC) VHD (valvular heart disease) Endocarditis, valve unspecified, unspecified cause Pulmonary hypertension (HCC) Other chronic pulmonary heart diseases Hyperparathyroidism (HCC) Hyperparathyroidism, unspecified H/O kidney transplant Kidney replaced by transplant Gastroesophageal reflux disease without esophagitis Esophageal reflux Mixed hyperlipidemia Other osteoporosis without current pathological fracture Pulmonary nodules Other nonspecific abnormal finding of lung field Right-sided thoracic back pain, unspecified chronicity- Primary Pneumonia of right lower lobe due to infectious organism 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) Mixed hyperlipidemia Radiculopathy, lumbar region Thoracic or lumbosacral neuritis or radiculitis, unspecified VHD (valvular heart disease) Endocarditis, valve unspecified, unspecified cause H/O kidney transplant Kidney replaced by transplant ASHD (arteriosclerotic heart disease) Coronary atherosclerosis of unspecified type of vessel, [place] or graft Right-sided thoracic back pain, unspecified chronicity [facility] Diagnosis Pre-operative examination- Primary Preoperative examination, unspecified Colon cancer screening Special screening for malignant neoplasms, colon Chronic obstructive pulmonary disease, unspecified COPD type (HCC) VIC (obstructive sleep apnea) Obstructive sleep apnea (adult) (pediatric) Pulmonary nodules Other nonspecific abnormal finding of lung field Claudication of both lower extremities (HCC) 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) Mixed hyperlipidemia Deep vein thrombosis (DVT) of proximal lower extremity, unspecified chronicity, unspecified laterality (HCC) Gastroesophageal reflux disease without esophagitis Esophageal reflux H/O kidney transplant Kidney replaced by transplant Hyperparathyroidism (HCC) Hyperparathyroidism, unspecified Other osteoporosis without current pathological fracture Current mild episode of major depressive disorder, unspecified whether recurrent (HCC) Palpitations Pre-operative examination- Primary Preoperative examination, unspecified Benign prostatic hyperplasia with urinary obstruction Neurogenic bladder Neurogenic bladder, NOS VIC (obstructive sleep apnea) Obstructive sleep apnea (adult) (pediatric) Coronary artery disease involving [place] coronary artery of [place] heart without angina pectoris Claudication of both lower extremities (HCC) Chronic obstructive pulmonary disease, unspecified COPD type (HCC) Abnormal EKG Nonspecific abnormal electrocardiogram (ECG) (EKG) Current mild episode of major depressive disorder, unspecified whether recurrent (HCC) Deep vein thrombosis (DVT) of proximal lower extremity, unspecified chronicity, unspecified laterality (HCC) VHD (valvular heart disease) Endocarditis, valve unspecified, unspecified cause Pulmonary hypertension (HCC) Other chronic pulmonary heart diseases Hyperparathyroidism (HCC) Hyperparathyroidism, unspecified H/O kidney transplant Kidney replaced by transplant Gastroesophageal reflux disease without esophagitis Esophageal reflux Mixed hyperlipidemia Other osteoporosis without current pathological fracture Pulmonary nodules Other nonspecific abnormal finding of lung field Right-sided thoracic back pain, unspecified chronicity [facility] Diagnosis Pre-operative examination- Primary Preoperative examination, unspecified Colon cancer screening Special screening for malignant neoplasms, colon Chronic obstructive pulmonary disease, unspecified COPD type (HCC) VIC (obstructive sleep apnea) Obstructive sleep apnea (adult) (pediatric) Pulmonary nodules Other nonspecific abnormal finding of lung field Claudication of both lower extremities (HCC) 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) Mixed hyperlipidemia Deep vein thrombosis (DVT) of proximal lower extremity, unspecified chronicity, unspecified laterality (HCC) Gastroesophageal reflux disease without esophagitis Esophageal reflux H/O kidney transplant Kidney replaced by transplant Hyperparathyroidism (HCC) Hyperparathyroidism, unspecified Other osteoporosis without current pathological fracture Current mild episode of major depressive disorder, unspecified whether recurrent (HCC) Palpitations Pre-operative examination- Primary Preoperative examination, unspecified Benign prostatic hyperplasia with urinary obstruction Neurogenic bladder Neurogenic bladder, NOS VIC (obstructive sleep apnea) Obstructive sleep apnea (adult) (pediatric) Coronary artery disease involving [place] coronary artery of [place] heart without angina pectoris Claudication of both lower extremities (HCC) Chronic obstructive pulmonary disease, unspecified COPD type (HCC) Abnormal EKG Nonspecific abnormal electrocardiogram (ECG) (EKG) Current mild episode of major depressive disorder, unspecified whether recurrent (HCC) Deep vein thrombosis (DVT) of proximal lower extremity, unspecified chronicity, unspecified laterality (HCC) VHD (valvular heart disease) Endocarditis, valve unspecified, unspecified cause Pulmonary hypertension (HCC) Other chronic pulmonary heart diseases Hyperparathyroidism (HCC) Hyperparathyroidism, unspecified H/O kidney transplant Kidney replaced by transplant Gastroesophageal reflux disease without esophagitis Esophageal reflux Mixed hyperlipidemia Other osteoporosis without current pathological fracture Pulmonary nodules Other nonspecific abnormal finding of lung field Other hemolytic-uremic syndrome (HCC)- Primary [facility]* Diagnosis Foot pain, right Pain in limb Pre-operative examination- Primary Preoperative examination, unspecified Colon cancer screening Special screening for malignant neoplasms, colon Chronic obstructive pulmonary disease, unspecified COPD type (HCC) VIC (obstructive sleep apnea) Obstructive sleep apnea (adult) (pediatric) Pulmonary nodules Other nonspecific abnormal finding of lung field Claudication of both lower extremities (HCC) 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) Mixed hyperlipidemia Deep vein thrombosis (DVT) of proximal lower extremity, unspecified chronicity, unspecified laterality (HCC) Gastroesophageal reflux disease without esophagitis Esophageal reflux H/O kidney transplant Kidney replaced by transplant Hyperparathyroidism (HCC) Hyperparathyroidism, unspecified Other osteoporosis without current pathological fracture Current mild episode of major depressive disorder, unspecified whether recurrent (HCC) Palpitations Pre-operative examination- Primary Preoperative examination, unspecified Benign prostatic hyperplasia with urinary obstruction Neurogenic bladder Neurogenic bladder, NOS VIC (obstructive sleep apnea) Obstructive sleep apnea (adult) (pediatric) Coronary artery disease involving [place] coronary artery of [place] heart without angina pectoris Claudication of both lower extremities (HCC) Chronic obstructive pulmonary disease, unspecified COPD type (HCC) Abnormal EKG Nonspecific abnormal electrocardiogram (ECG) (EKG) Current mild episode of major depressive disorder, unspecified whether recurrent (HCC) Deep vein thrombosis (DVT) of proximal lower extremity, unspecified chronicity, unspecified laterality (HCC) VHD (valvular heart disease) Endocarditis, valve unspecified, unspecified cause Pulmonary hypertension (HCC) Other chronic pulmonary heart diseases Hyperparathyroidism (HCC) Hyperparathyroidism, unspecified H/O kidney transplant Kidney replaced by transplant Gastroesophageal reflux disease without esophagitis Esophageal reflux Mixed hyperlipidemia Other osteoporosis without current pathological fracture Pulmonary nodules Other nonspecific abnormal finding of lung field [facility] Diagnosis NSTEMI (non-ST elevated myocardial infarction) (Multi)- Primary Acute myocardial infarction, subendocardial infarction, episode of care unspecified Cardiogenic shock (Multi) Cardiogenic shock Hematuria, unspecified type Chest pain Unspecified chest pain Kidney replaced by transplant ([facility]) Kidney replaced by transplant Acute cystitis without hematuria ESRD (end stage renal disease) (Multi) End stage renal disease Gram-negative bacteremia- Primary Unspecified septicemia documented in this encounter [facility] Work Phone: History of Present illness Narrative* [...] list and allergy hx - were reviewed [id number] Work Phone: History of Present illness [...] list and allergy hx - were reviewed [employer] Phone: History of Present illness Narrative* Marian [...] recent infection, hospitalization, surgery or ER visits. [employer] Work Phone: History of Present illness Narrative* [...] list and allergy hx - were reviewed [id number] Work Phone: Hospital course Narrative No data available for this section [facility] Discharge instructions No data available for this section [facility] Progress note No data available for this section [facility] Reason for referral (narrative)* Outpatient Procedure (Routine) - Pending Review Specialty Diagnoses / Procedures Referred By Surinder munroe Referred To Contact [facility] Diagnoses Benign prostatic hyperplasia with urinary obstruction Procedures URODYNAMICS CADE POST-VOIDING RESIDUAL URINE&/BLADDER CAP Kris Badillo DO [address] [place] [address] [facility] [address] [place] [address] Referral ID Status Reason Start Date Expiration Date Visits Requested Visits Authorized [id number] Pending Review Auto-Generat ed Referral 03/06/2022 03/06/2023 1 1 [facility] for referral (narrative)* Diagnostic Procedure Only (Routine) - Closed Specialty Diagnoses / Procedures Referred By Contac t Referred To Contact US IMAGING Diagnoses Renal failure, chronic, stage 3 (moderate) (HCC) H/O kidney transplant Neurogenic bladder BPH with obstruction/lower urinary tract symptoms Procedures US PELVIS BLADDER US PELVIC NONOBSTETRIC IMAGE DCMTN LIMITED/F/U Diana Tate PA-C [address] [place] [address] Us Imaging Referral ID Status Reason Start Date Expiration Date V isits Requested Visits Authorized [id number] Closed Auto-Generate d Referral 02/19/2022 03/21/2023 1 1 * Consult, Test, Treat (Routine) - Closed Specialty Diagnoses / Procedures Referred By Mandyac t Referred To Contact Urology Diagnoses BPH with obstruction/lower urinary tract symptoms Procedures CONSULT TO UROLOGY OFFICE/OUTPATIENT [facility] MDM 60-74 MINUTES Diana Tate PA-C [address] [place] [address] Referral ID Status Reason Start Date Expiration Date V isits Requested Visits Authorized [id number] Closed PCP Requested Referral 02/26/2022 02/19/2023 1 1 [facility] for referral (narrative)* Diagnostic Procedure Only (Routine) - Pending Review Specialty Diagnoses / Procedures Referred By Mandyac t Referred To Contact XR IMAGING Diagnoses H/O kidney transplant Hyperparathyroidism (HCC) Renal failure, chronic, stage 3 (moderate) (HCC) Other osteoporosis without current pathological fracture Procedures DXA-AXIAL SKELETON WITH VFA DXA BONE DENSITY STUDY AXIAL SKELETON Diana Tate PA-C [address] [place] [address] Xr Imaging Referral ID Status Reason Start Date Expiration Date Visits Requested Visits Authorized [id number] Pending Review Auto-Generat ed Referral 10/15/2023 1 1 * Consult, Test, Treat (Routine) - Authorized Specialty Diagnoses / Procedures Referred By Contac t Referred To Contact Cardiology Diagnoses Coronary artery disease involving te-[place] coronary artery of [place] heart without angina pectoris Claudication of both lower extremities (HCC) Mixed hyperlipidemia Procedures CONSULT TO CARDIOLOGY OFFICE/OUTPATIENT NEW [facility] MDM 60-74 MINUTES Diana Tate PA-C [address] [place] [address] Referral ID Status Reason Start Date Expiration Date Visits Requested Visits Authorized [id number] Authorized PCP Requested Referral 09/14/2022 09/14/2023 1 1 * Physical Therapy (Routine) - Pending Review Specialty Diagnoses / Procedures Referred By Contac t Referred To Contact [facility] Diagnoses Coronary artery disease involving te-moak coronary artery of te-moak heart without angina pectoris Claudication of both lower extremities (HCC) Mixed hyperlipidemia Traumatic incomplete tear of left rotator cuff, subsequent encounter Procedures CONSULT TO PHYSICAL THERAPY PHYSICAL THERAPY EVALUATION HIGH COMPLEX 45 MINS Diana Tate PA-C [address] [place] [address] [facility] [address] [place] [address] Referral ID Status Reason Start Date Expiration Date Visits Requested Visits Authorized [id number] Pending Review Auto-Generat ed Referral 09/14/2022 09/14/2023 1 1 [facility] Procedure (Routine) - Closed Specialty Diagnoses / Procedures Referred By Contac t Referred To Contact [facility] Diagnoses Pre-operative examination Procedures ECG COMPLETE ECG ROUTINE ECG W/LEAST 12 LDS W/I&R Sallie Carlisle APRN.CNP [address] [place] [address] [facility] [address] [address] Referral ID Status Reason Start Date Expiration Date V isits Requested Visits Authorized [id number] Closed Auto-Generate d Referral 12/10/2022 12/10/2023 1 1 [facility] for referral (narrative)* Outpatient Procedure (Routine) - Authorized Specialty Diagnoses / Procedures Referred By Contac t Referred To Contact [facility] Diagnoses Coronary artery disease involving te-moak coronary artery of te-moak heart without angina pectoris Essential hypertension Dyslipidemia Pre-operative cardiovascular examination Procedures ECHO ECHO TTHRC R-T 2D W/WOM-MODE COMPL SPEC&COLR D Ledy Ivy MD [address] [place] [address] [facility] [address] [address] Referral ID Status Reason Start Date Expiration Date Visits Requested Visits Authorized [id number] Authorized Auto-Generat ed Referral 10/07/2022 10/06/2023 1 1 * Outpatient Procedure (Routine) - Pending Review Specialty Diagnoses / Procedures Referred By Contac t Referred To Contact [facility] Diagnoses Coronary artery disease involving te-moak coronary artery of te-moak heart without angina pectoris Essential hypertension Dyslipidemia Pre-operative cardiovascular examination Procedures ECG COMPLETE ECG ROUTINE ECG W/LEAST 12 LDS W/I&R Ledy Ivy MD [address] [place] [address] [facility] [id number] [place] [address] Referral ID Status Reason Start Date Expiration Date Visits Requested Visits Authorized [id number] Pending Review Auto-Generat ed Referral 12/18/2022 12/18/2023 1 1 [facility] for referral (narrative)* Outpatient Procedure (Routine) - Closed Specialty Diagnoses / Procedures Referred By Contac t Referred To Contact [facility] Diagnoses Coronary artery disease involving te-moak coronary artery of te-moak heart without angina pectoris Essential hypertension Dyslipidemia Pre-operative cardiovascular examination Procedures ECHO ECHO TTHRC R-T 2D W/WOM-MODE COMPL SPEC&COLR D Ledy Ivy MD [address] [place] [address] [facility] [address] [place] [address] Referral ID Status Reason Start Date Expiration Date V isits Requested Visits Authorized [id number] Closed Auto-Generate d Referral 10/07/2022 10/06/2023 1 1 [facility] for referral (narrative)* Diagnostic Procedure Only (Urgent) - Closed Specialty Diagnoses / Procedures Referred By Contac t Referred To Contact XR IMAGING Diagnoses Foot pain, left Procedures XR FOOT GENERAL 3V AP/LAT/OBL LEFT RADEX FOOT COMPLETE MINIMUM 3 VIEWS Oz Manuel APRN.HARDBOARD PANEL PRINTER [address] [place] [address] [place] [address] Referral ID Status Reason Start Date Expiration Date V isits Requested Visits Authorized [id number] Closed Auto-Generate d Referral 01/02/2024 01/31/2025 1 1 [facility] for referral (narrative)* Diagnostic Procedure Only (Urgent) - Closed Specialty Diagnoses / Procedures Referred By Contac t Referred To Contact XR IMAGING Diagnoses Acute pain of left shoulder Procedures XR SHOULDER LIMITED 2V AP/TRUE AP LEFT RADEX SHOULDER COMPLETE MINIMUM 2 VIEWS Isabel Guillaume APRN.HARDBOARD PANEL PRINTER [address] [place] [address] [place] [address] Referral ID Status Reason Start Date Expiration Date V isits Requested Visits Authorized [id number] Closed Auto-Generate d Referral 05/04/2022 06/03/2023 1 1 [facility] for visit Narrative* Outpatient Procedure (Routine) - Closed Specialty Diagnoses / Procedures Referred By Contac t Referred To Contact [facility] Diagnoses Coronary artery disease involving te-moak coronary artery of te-moak heart without angina pectoris Essential hypertension Dyslipidemia Pre-operative cardiovascular examination Procedures ECHO ECHO TTHRC R-T 2D W/WOM-MODE COMPL SPEC&COLR D Ledy Ivy MD [address] [place] [address] [facility] [address] [place] [address] Referral ID Status Reason Start Date Expiration Date V isits Requested Visits Authorized [id number] Closed Auto-Generate d Referral 10/07/2022 10/06/2023 1 1 [facility] for visit Narrative* Diagnostic Procedure Only (Urgent) - Closed Specialty Diagnoses / Procedures Referred By Contac t Referred To Contact XR IMAGING Diagnoses Foot pain, left Procedures XR FOOT GENERAL 3V AP/LAT/OBL LEFT RADEX FOOT COMPLETE MINIMUM 3 VIEWS Oz Manuel APRN.HARDBOARD PANEL PRINTER [address] [place] [address] [place] [address] Referral ID Status Reason Start Date Expiration Date V isits Requested Visits Authorized [id number] Closed Auto-Generate d Referral 01/02/2024 01/31/2025 1 1 [facility] for visit Narrative* Diagnostic Procedure Only (Urgent) - Closed Specialty Diagnoses / Procedures Referred By Contac t Referred To Contact XR IMAGING Diagnoses Acute pain of left shoulder Procedures XR SHOULDER LIMITED 2V AP/TRUE AP LEFT RADEX SHOULDER COMPLETE MINIMUM 2 VIEWS Isabel Guillaume APRN.HARDBOARD PANEL PRINTER [address] [place] [address] [place] [address] Referral ID Status Reason Start Date Expiration Date V isits Requested Visits Authorized [id number] Closed Auto-Generate d Referral 05/04/2022 06/03/2023 1 1 [facility] Summary Purpose Family History No Family History Records FoundNo Family History Records FoundNo Family History Records FoundNo Family History Records FoundNo Family History Records FoundNo Family History Records FoundNo Family History Records FoundNo Family History Records FoundNo Family History Records Found No data available for this section No Family History Records FoundNo Family History Records Found No data available for this section No data available for this section No Family History Records Found No data available for this section No Family History Records FoundNo Family History Records Found Advance Directives No Advanced Directives Records FoundDocuments on File Type Date Recorded Patient Microstrategy Developer Expl anation Advance Directives and Living Will Power of Associate Material Handler Latest Code Status on File Code Status Date Activated Date Inactivated Comments Full Code 02/11/2018 5:24 PM 02/15/2018 7:47 PM Full Code 02/11/2018 9:57 AM 02/11/2018 5:24 PM Full Code 01/24/2018 8:53 AM 01/24/2018 4:54 PM Full Code 12/27/2017 2:36 PM 12/28/2017 5:02 PM Full Code 12/27/2017 1:01 PM 12/27/2017 2:36 PM Documents on File Type Date Recorded Patient Microstrategy Developer Expl anation ACP-Advance Directive ACP-Power of Associate Material Handler Latest Code Status on File Code Status Date Activated Date Inactivated Comments Full Code 02/11/2018 5:24 PM 02/15/2018 7:47 PM Full Code 02/11/2018 9:57 AM 02/11/2018 5:24 PM Full Code 01/24/2018 8:53 AM 01/24/2018 4:54 PM Full Code 12/27/2017 2:36 PM 12/28/2017 5:02 PM Full Code 12/27/2017 1:01 PM 12/27/2017 2:36 PM Documents on File Type Date Recorded Patient Microstrategy Developer Expl anation Advance Directive(s) Advance Directive(s) 06/14/2021 6:21 AM Advance Directive(s) 05/18/2021 1:26 PM Documents on File Type Date Recorded Patient Microstrategy Developer Expl anation Advance Directive(s) Advance Directive(s) 06/14/2021 6:21 AM Advance Directive(s) 05/18/2021 1:26 PM Date Activated Date Inactivated Comments 04/27/2024 3:31 AM Question Answer Comments Plan of Care: Code Status Discussion Completed Decision Maker: Patient Discharge Instructions * Instructions* Elisha Bentley RN [...] or dog food bags, or a vacuum pool cleaner. Your dressing will be removed at [...] call and ask for the Interventional Radiologist electronics production supervisor. Where can you learn more? Go to [email or web address] and sign in to your [employer] account. Enter P616 in the Search Health Information box to learn more about Hemodialysis Access: What to Expect at Home. If you do not have an account, please click on the Sign Up Now link. Current as of: August 22, 2016 Content Version: 11.2 [id number] [employer]. Care instructions adapted under license by [employer]. If youhave questions about a medical condition or this instruction, always ask your healthcare professional. [employer] disclaims any warranty or liability for your use of this information. documented in this encounter History of Present Illness * Elisha Bentley RN - 03/01/2020 3:28 PM EDT coming to rock picker. D/C inst given. Taking snack in [...] of other specified arteries Diagnosis Atherosclerosis of te-moak artery 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) Atherosclerosis of te-moak arteries of the extremities with intermittent claudication Reason for Referral Status Reason Specialty Diagnoses / Procedures Re ferred By Contact Referred To Contact Authorized Radiology Diagnoses Atherosclerosis of te-moak artery 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) Procedures VL DUP LOWER EXTREMITY ARTERIES BILATERAL Guido Jauregui MD [address] [place] [address] Status Reason Specialty Diagnoses / Procedures Referred By Contact Referred To Contact Authorized Radiology Diagnoses Stage 3 chronic kidney disease, unspecified whether stage 3a or 3b CKD 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) Procedures VL DUP LOWER EXTREMITY ARTERIES BILATERAL Guido Jauregui MD [address] [facility] [address] [place] [address] Specialty Diagnoses / Procedures Referred By Contac t Referred To Contact Orthopedics Diagnoses Acute pain of left shoulder Procedures CONSULT TO ORTHOPAEDICS OFFICE/OUTPATIENT [facility] 60-74 MINUTES Isabel Guillaume, CELL MAKER.HARDBOARD PANEL PRINTER [address] [place] [address] Referral ID Status Reason Start Date Expiration Date Visits Requested Visits Authorized [id number] Authorized PCP Requested Referral 05/04/2022 05/04/2023 1 1 Specialty Diagnoses / Procedures Referred By Contac t Referred To Contact XR IMAGING Diagnoses Acute pain of left shoulder Procedures XR SHOULDER LIMITED 2V AP/TRUE AP LEFT RADEX SHOULDER COMPLETE MINIMUM 2 VIEWS Isabel Guillaume APRN.HARDBOARD PANEL PRINTER [address] [place] [address] Xr Imaging Referral ID Status Reason Start Date Expiration Date V isits Requested Visits Authorized [id number] Closed Auto-Generate d Referral 05/04/2022 06/03/2023 1 1 Specialty Diagnoses / Procedures Referred By Contac t Referred To Contact MR IMAGING Diagnoses Acute pain of left shoulder Traumatic tear of left rotator cuff, unspecified tear extent, initial encounter Procedures MRI SHOULDER WO IVCON LT MRI ANY JT UPPER EXTREMITY W/O CONTRAST MATRL Maynor Baldwin MD [address] [place] [id number] Mr [facility] Referral ID Status Reason Start Date Expiration Date Visits Requested Visits Authorized [id number] Authorized Auto-Generat ed Referral 05/21/2022 06/26/2022 1 1 Specialty Diagnoses / Procedures Referred By Contac t Referred To Contact [facility] Diagnoses Coronary artery disease involving te-moak coronary artery of te-moak heart without angina pectoris Claudication of both lower extremities (HCC) Mixed hyperlipidemia Traumatic incomplete tear of left rotator cuff, subsequent encounter Procedures PT REHAB FOLLOW UP ORDER THERAPEUTIC EXERCISES RE, EA 15 MIN. Pt [facility] [address] [address] [facility] [address] [place] [address] Referral ID Status Reason Start Date Expiration Date Visits Requested Visits Authorized [id number] Pending Review PCP Requested Referral Auto-Generate d Referral 12/19/2022 1 1 Specialty Diagnoses / Procedures Referred By Contac t Referred To Contact [facility] Diagnoses S/P left rotator cuff repair S/P shoulder surgery Procedures CONSULT TO PHYSICAL THERAPY PHYSICAL THERAPY EVALUATION HIGH COMPLEX 45 MINS Abraham Gibbs PA-C [address] [place] [address] [facility] [address] [address] Referral ID Status Reason Start Date Expiration Date Visits Requested Visits Authorized [id number] Pending Review Auto-Generat ed Referral 01/18/2023 01/18/2024 1 1 Specialty Diagnoses / Procedures Referred By Contac t Referred To Contact [facility] Diagnoses S/P left rotator cuff repair S/P shoulder surgery Procedures PT REHAB FOLLOW UP ORDER THERAPEUTIC EXERCISES RE, EA 15 MIN. Lazaro Lizarraga, PT [address] [place] [address] [facility] [address] [address] Referral ID Status Reason Start Date Expiration Date V isits Requested Visits Authorized [id number] Closed PCP Requested Referral Auto-Generated Referral 01/25/2023 04/25/2023 1 1 Specialty Diagnoses / Procedures Referred By Contac t Referred To Contact Cardiology Diagnoses Atherosclerosis of te-moak artery 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) Procedures Vascular US lower extremity arterial duplex left with CHEL Aura Anderson PA-C [address] [place] [address] [address] Non-Invasive Cardiology [address] [place] [address] Referral ID Status Reason Start Date Expiration Date V isits Requested Visits Authorized [id number] Closed Perform Procedure 03/05/2023 09/01/2023 1 1 Specialty Diagnoses / Procedures Referred By Contac t Referred To Contact Cardiology Diagnoses Atherosclerosis of artery of extremity with intermittent claudication (HCC) Procedures Vascular US lower extremity arterial PVR with exercise Jennifer Sutton APRN - CNP [address] [place] [address] Referral ID Status Reason Start Date Expiration Date Visits Requested Visits Authorized [id number] Pending Review Perform Procedure 05/27/2023 11/23/2023 1 1 Specialty Diagnoses / Procedures Referred By Contac t Referred To Contact Diagnoses Kidney replaced by transplant Osteoporosis with current pathological fracture, unspecified osteoporosis type, initial encounter Stage 3b chronic kidney disease ([facility]/HCC) [place] [address] [facility] Department of Medicine-Nephrology [place] [id number] Referral ID Status Reason Start Date Expiration Date V isits Requested Visits Authorized [id number] Pending Review 11/14/2023 11/13/2024 1 1 Specialty Diagnoses / Procedures Referred By Contac t Referred To Contact Vascular Surgery Diagnoses Peripheral vascular disease (HCC) Procedures CONSULT TO VASCULAR SURGERY OFFICE/OUTPATIENT [facility] 60 MINUTES Maria Elena Dockery MD [email or web address], [address] [place] [address] Hanna Joel MD 1 [facility] [address] [place] [address] Referral ID Status Reason Start Date Expiration Date Visits Requested Visits Authorized [id number] Authorized PCP Requested Referral 02/17/2024 02/02/2025 1 1 Specialty Diagnoses / Procedures Referred By Contac t Referred To Contact [facility] / [facility] Diagnoses Generalized edema Subclavian steal syndrome Peripheral vascular disease (HCC) Procedures US ARM ARTERIAL STEVE VAS LAB DUP-SCAN UXTR ART/ARTL BPGS COMPL BI STUDY Maria Elena Dockery MD [email or web address], [address] [place] [address] Fax: [facility] [address] [place] [address] Referral ID Status Reason Start Date Expiration Date Visits Requested Visits Authorized [id number] Authorized Auto-Generat ed Referral 02/03/2024 02/02/2025 1 1 Specialty Diagnoses / Procedures Referred By Contac t Referred To Contact [facility] Diagnoses Generalized edema Subclavian steal syndrome Peripheral vascular disease (HCC) Procedures US ARM VEIN DVT STEVE VAS LAB DUP-SCAN XTR VEINS COMPLETE BILATERAL STUDY Maria Elena Dockery MD [address], [address] [place] [address] [facility] [address] [place] [address] Referral ID Status Reason Start Date Expiration Date Visits Requested Visits Authorized [id number] Authorized Auto-Generat ed Referral 02/03/2024 02/02/2025 1 1 Specialty Diagnoses / Procedures Referred By Contac t Referred To Contact Vascular Surgery Diagnoses Swelling of hand Procedures CONSULT TO VASCULAR SURGERY OFFICE/OUTPATIENT [facility]DM 60 MINUTES Khanh Mustafa APRN.HARDBOARD PANEL PRINTER [address] [place] [address] Referral ID Status Reason Start Date Expiration Date Visits Requested Visits Authorized [id number] Authorized PCP Requested Referral 02/11/2024 02/10/2025 1 1 Specialty Diagnoses / Procedures Referred By Contac t Referred To Contact Cardiology Diagnoses Atherosclerosis of te-moak artery 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) Aftercare following surgery of the circulatory system Procedures Vascular US lower extremity arterial duplex with graft right with CHEL Jennifer Sutton APRN - HARDBOARD PANEL PRINTER [address] [place] [address] Referral ID Status Reason Start Date Expiration Date V isits Requested Visits Authorized [id number] Pending Review 03/23/2024 03/23/2025 1 1 Specialty Diagnoses / Procedures Referred By Contac t Referred To Contact Cardiology Diagnoses Atherosclerosis of te-moak artery 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) Procedures Vascular US lower extremity arterial duplex with graft right with CHEL Vascular US lower extremity arterial duplex with graft left with CHEL Vascular US lower extremity arterial duplex with graft left Vascular US lower extremity arterial duplex with graft left with CHEL Jennifer Sutton APRN - HARDBOARD PANEL PRINTER [address] [place] [address] Referral ID Status Reason Start Date Expiration Date V isits Requested Visits Authorized [id number] Closed Perform Procedure 03/21/2023 03/20/2024 1 1 Specialty Diagnoses / Procedures Referred By Contac t Referred To Contact Vascular Surgery Diagnoses Swelling of arm Procedures CONSULT TO VASCULAR SURGERY OFFICE/OUTPATIENT [facility] MDM 60 MINUTES Maria Elena Dockery MD [address] [place] [address] Hanna Joel MD 1 [facility] [address] [place] [address] Referral ID Status Reason Start Date Expiration Date Visits Requested Visits Authorized [id number] Authorized PCP Requested Referral 05/04/2024 04/27/2025 1 1 Specialty Diagnoses / Procedures Referred By Contac t Referred To Contact CT IMAGING Diagnoses Pulmonary nodule Procedures CT CHEST WO IVCON DIAGNOSTIC COMPUTED TOMOGRAPHY THORAX W/O CNTRST Melissa Layne APRN.HARDBOARD PANEL PRINTER [address] [place] [address] [place] [address] Referral ID Status Reason Start Date Expiration Date Visits Requested Visits Authorized [id number] New Request Auto-Generat ed Referral 11/25/2024 06/24/2025 1 1 Specialty Diagnoses / Procedures Referred By Contac t Referred To Contact Cardiology Diagnoses 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) VHD (valvular heart disease) Procedures CONSULT TO CARDIOLOGY OFFICE/OUTPATIENT [facility] 60 MINUTES Melissa Layne APRN.HARDBOARD PANEL PRINTER [address] [place] [address] Referral ID Status Reason Start Date Expiration Date Visits Requested Visits Authorized [id number] Authorized PCP Requested Referral 07/07/2024 07/07/2025 1 1 Specialty Diagnoses / Procedures Referred By Contac t Referred To Contact Radiology Diagnoses Gram-negative bacteremia Procedures Consult to Interventional [place]iology Verón[place] [address] [place] [address] Referral ID Status Reason Start Date Expiration Date Visits Requested Visits Authorized [id number] Pending Review Perform Procedure 07/17/2025 1 1 Chief Complaint * A telephone [...] ONE TIME INJECTION, 1 dose, Starting on 09/24/22 at 1536, Until 09/24/22 at 1536 Given 09/24/2022 3:36 PM EST 6 mg Shoulder, Left lidocaine (PF) 10 mg/mL (1 %) 4 mL injection (XYLOCAINE) 4 mL, Injection - FOR ORTHO USE ONLY, ONE TIME INJECTION, 1 dose, Starting on 09/24/22 at 1536, Until 09/24/22 at 1536 Given 09/24/2022 3:36 PM EST [...] Starting on Lyssa 01/03/23 at 1200, Until Sat01/03/23 at 1615, Preprocedure Rate Verify 01/03/2023 4:13 PM EDT 30 mL/hr 30 mL/hr New Bag/Syringe/Bottle 01/03/2023 3:44 PM EDT Restarted 01/03/2023 1:10 PM EDT lactated ringers iv infusion 5-30 mL/hr, INTRAVENOUS, CONTINUOUS, Starting on Lyssa 01/03/23 at 1730, Until Sat01/04/23 at 0303 menthol-cetylpyridinium 1 Lozenge (CEPACOL LOZENGES) 1 Lozenge, ORAL, NEEDED, Starting on Lyssa 01/03/23 at 1723, Until Sat01/04/23 at 0303, Sore Throat Given 01/03/2023 5:25 PM EDT 1 Lozenge metoclopramide HCl 10 mg injection (REGLAN) 10 mg, INTRAVENOUS, NEEDED, 1 dose, Starting on Lyssa 01/03/23 at 1726, Until Sat01/04/23 at 0303, Nausea/Vomiting - Second Line - Parenteral midazolam 1-6 mg injection (VERSED) 1-6 mg, INTRAVENOUS, ONCE, 1 dose, On Lyssa 01/03/23 at 0830 Given 01/03/2023 12:53 PM EDT 2 mg ondansetron (PF) 4 mg injection (ZOFRAN) 4 mg, INTRAVENOUS, NEEDED, 1 dose, Starting on Lyssa 01/03/23 at 1726, Until Sat01/04/23 at 0303, Nausea/Vomiting - First Line - Parenteral, Give IV push over 2 minutes oxyCODONE IR 5 mg tab(s) (ROXICODONE) 5 mg, ORAL, NEEDED, 1 dose, Starting on Lyssa 01/03/23 at 1726, Until 01/04/23 at 0303, Moderate Pain (4-6) - Enteral promethazine 12.5 mg tab(s) (PHENERGAN) 12.5 mg, ORAL, NOW, 1 dose, On Lyssa 01/03/23 at 0830 Given 01/03/2023 12:23 PM EDT 12.5 mg Health Concerns Infection Onset Date Last Indicated [...] ized section and content) DATE CREATED AUTHOR 03/27/2018 [facility] DATE CREATED AUTHOR AUTHOR'S ORGANIZ ATION 02/24/2019 [facility] DATE CREATED AUTHOR AUTHOR'S ORGANIZ ATION 12/20/2021 [facility] DATE CREATED AUTHOR AUTHOR'S ORGANIZ ATION 05/18/2022 [facility] DATE CREATED AUTHOR AUTHOR'S ORGANIZ ATION 12/27/2022 [facility] DATE CREATED AUTHOR AUTHOR'S ORGANIZ ATION 06/06/2023 [employer] DATE CREATED AUTHOR AUTHOR'S ORGANIZ ATION 04/28/2024 [facility] DATE CREATED AUTHOR AUTHOR'S ORGANIZ ATION 05/16/2024 [facility] DATE CREATED AUTHOR AUTHOR'S ORGANIZ ATION 06/28/2024 [facility] DATE CREATED AUTHOR AUTHOR'S ORGANIZ ATION 07/16/2024 [facility] DATE CREATED AUTHOR AUTHOR'S ORGANIZ ATION 07/17/2024 [facility] DATE CREATED AUTHOR AUTHOR'S ORGANIZ ATION 07/19/2024 [facility] DATE CREATED AUTHOR AUTHOR'S ORGANIZ ATION 07/22/2024 [facility] DATE CREATED AUTHOR AUTHOR'S ORGANIZ ATION 07/24/2024 [facility] Source Comments (unrecognize d section and content) In the event this informatio n is protected by the Federal Confidentiality of Alcohol and Drug Abuse Patient Records regulations: The Federal rules restrict any use of the information to criminally investigate or prosecute any alcohol or drug abuse patient.[facility] the event this information is protected by the Federal Confidentiality of Alcohol and Drug Abuse Patient Records regulations: The Federal rules restrict any use of the information to criminally investigate or prosecute any alcohol or drug abuse patient.[facility] HospitalIn the event this information is protected by the Federal Confidentiality of Alcohol and Drug Abuse Patient Records regulations: The Federal rules restrict any use of the information to criminally investigate or prosecute any alcohol or drug abuse patient.[facility] HospitalIn the event this information is protected by the Federal Confidentiality of Alcohol and Drug Abuse Patient Records regulations: The Federal rules restrict any use of the information to criminally investigate or prosecute any alcohol or drug abuse patient.[facility] HospitalIn the event this information is protected by the Federal Confidentiality of Alcohol and Drug Abuse Patient Records regulations: The Federal rules restrict any use of the information to criminally investigate or prosecute any alcohol or drug abuse patient.[facility] HospitalIn the event this information is protected by the Federal Confidentiality of Alcohol and Drug Abuse Patient Records regulations: The Federal rules restrict any use of the information to criminally investigate or prosecute any alcohol or drug abuse patient.[facility] HospitalIn the event this information is protected by the Federal Confidentiality of Alcohol and Drug Abuse Patient Records regulations: The Federal rules restrict any use of the information to criminally investigate or prosecute any alcohol or drug abuse patient.[facility] HospitalIn the event this information is protected by the Federal Confidentiality of Alcohol and Drug Abuse Patient Records regulations: The Federal rules restrict any use of the information to criminally investigate or prosecute any alcohol or drug abuse patient.[facility] HospitalIn the event this information is protected by the Federal Confidentiality of Alcohol and Drug Abuse Patient Records regulations: The Federal rules restrict any use of the information to criminally investigate or prosecute any alcohol or drug abuse patient.[facility] HospitalIn the event this information is protected by the Federal Confidentiality of Alcohol and Drug Abuse Patient Records regulations: The Federal rules restrict any use of the information to criminally investigate or prosecute any alcohol or drug abuse patient.[facility] HospitalIn the event this information is protected by the Federal Confidentiality of Alcohol and Drug Abuse Patient Records regulations: The Federal rules restrict any use of the information to criminally investigate or prosecute any alcohol or drug abuse patient.[facility] HospitalIn the event this information is protected by the Federal Confidentiality of Alcohol and Drug Abuse Patient Records regulations: The Federal rules restrict any use of the information to criminally investigate or prosecute any alcohol or drug abuse patient.[facility] HospitalIn the event this information is protected by the Federal Confidentiality of Alcohol and Drug Abuse Patient Records regulations: The Federal rules restrict any use of the information to criminally investigate or prosecute any alcohol or drug abuse patient.[facility] HospitalIn the event this information is protected by the Federal Confidentiality of Alcohol and Drug Abuse Patient Records regulations: The Federal rules restrict any use of the information to criminally investigate or prosecute any alcohol or drug abuse patient.[facility] HospitalIn the event this information is protected by the Federal Confidentiality of Alcohol and Drug Abuse Patient Records regulations: The Federal rules restrict any use of the information to criminally investigate or prosecute any alcohol or drug abuse patient.[facility] HospitalIn the event this information is protected by the Federal Confidentiality of Alcohol and Drug Abuse Patient Records regulations: The Federal rules restrict any use of the information to criminally investigate or prosecute any alcohol or drug abuse patient.[facility] HospitalIn the event this information is protected by the Federal Confidentiality of Alcohol and Drug Abuse Patient Records regulations: The Federal rules restrict any use of the information to criminally investigate or prosecute any alcohol or drug abuse patient.[facility] HospitalIn the event this information is protected by the Federal Confidentiality of Alcohol and Drug Abuse Patient Records regulations: The Federal rules restrict any use of the information to criminally investigate or prosecute any alcohol or drug abuse patient.[facility] HospitalIn the event this information is protected by the Federal Confidentiality of Alcohol and Drug Abuse Patient Records regulations: The Federal rules restrict any use of the information to criminally investigate or prosecute any alcohol or drug abuse patient.[facility] HospitalIn the event this information is protected by the Federal Confidentiality of Alcohol and Drug Abuse Patient Records regulations: The Federal rules restrict any use of the information to criminally investigate or prosecute any alcohol or drug abuse patient.[facility] HospitalIn the event this information is protected by the Federal Confidentiality of Alcohol and Drug Abuse Patient Records regulations: The Federal rules restrict any use of the information to criminally investigate or prosecute any alcohol or drug abuse patient.[facility] HospitalIn the event this information is protected by the Federal Confidentiality of Alcohol and Drug Abuse Patient Records regulations: The Federal rules restrict any use of the information to criminally investigate or prosecute any alcohol or drug abuse patient.[facility] HospitalIn the event this information is protected by the Federal Confidentiality of Alcohol and Drug Abuse Patient Records regulations: The Federal rules restrict any use of the information to criminally investigate or prosecute any alcohol or drug abuse patient.[facility] HospitalIn the event this information is protected by the Federal Confidentiality of Alcohol and Drug Abuse Patient Records regulations: The Federal rules restrict any use of the information to criminally investigate or prosecute any alcohol or drug abuse patient.[facility] HospitalIn the event this information is protected by the Federal Confidentiality of Alcohol and Drug Abuse Patient Records regulations: The Federal rules restrict any use of the information to criminally investigate or prosecute any alcohol or drug abuse patient.[facility] HospitalIn the event this information is protected by the Federal Confidentiality of Alcohol and Drug Abuse Patient Records regulations: The Federal rules restrict any use of the information to criminally investigate or prosecute any alcohol or drug abuse patient.[facility] HospitalIn the event this information is protected by the Federal Confidentiality of Alcohol and Drug Abuse Patient Records regulations: The Federal rules restrict any use of the information to criminally investigate or prosecute any alcohol or drug abuse patient.[facility] HospitalIn the event this information is protected by the Federal Confidentiality of Alcohol and Drug Abuse Patient Records regulations: The Federal rules restrict any use of the information to criminally investigate or prosecute any alcohol or drug abuse patient.[facility] HospitalIn the event this information is protected by the Federal Confidentiality of Alcohol and Drug Abuse Patient Records regulations: The Federal rules restrict any use of the information to criminally investigate or prosecute any alcohol or drug abuse patient.[facility] HospitalIn the event this information is protected by the Federal Confidentiality of Alcohol and Drug Abuse Patient Records regulations: The Federal rules restrict any use of the information to criminally investigate or prosecute any alcohol or drug abuse patient.[facility] HospitalIn the event this information is protected by the Federal Confidentiality of Alcohol and Drug Abuse Patient Records regulations: The Federal rules restrict any use of the information to criminally investigate or prosecute any alcohol or drug abuse patient.[facility] HospitalIn the event this information is protected by the Federal Confidentiality of Alcohol and Drug Abuse Patient Records regulations: The Federal rules restrict any use of the information to criminally investigate or prosecute any alcohol or drug abuse patient.[facility] HospitalIn the event this information is protected by the Federal Confidentiality of Alcohol and Drug Abuse Patient Records regulations: The Federal rules restrict any use of the information to criminally investigate or prosecute any alcohol or drug abuse patient.[facility] HospitalIn the event this information is protected by the Federal Confidentiality of Alcohol and Drug Abuse Patient Records regulations: The Federal rules restrict any use of the information to criminally investigate or prosecute any alcohol or drug abuse patient.[facility] HospitalIn the event this information is protected by the Federal Confidentiality of Alcohol and Drug Abuse Patient Records regulations: The Federal rules restrict any use of the information to criminally investigate or prosecute any alcohol or drug abuse patient.[facility] HospitalIn the event this information is protected by the Federal Confidentiality of Alcohol and Drug Abuse Patient Records regulations: The Federal rules restrict any use of the information to criminally investigate or prosecute any alcohol or drug abuse patient.[facility] HospitalIn the event this information is protected by the Federal Confidentiality of Alcohol and Drug Abuse Patient Records regulations: The Federal rules restrict any use of the information to criminally investigate or prosecute any alcohol or drug abuse patient.[facility] HospitalIn the event this information is protected by the Federal Confidentiality of Alcohol and Drug Abuse Patient Records regulations: The Federal rules restrict any use of the information to criminally investigate or prosecute any alcohol or drug abuse patient.[facility] HospitalIn the event this information is protected by the Federal Confidentiality of Alcohol and Drug Abuse Patient Records regulations: The Federal rules restrict any use of the information to criminally investigate or prosecute any alcohol or drug abuse patient.[facility] HospitalIn the event this information is protected by the Federal Confidentiality of Alcohol and Drug Abuse Patient Records regulations: The Federal rules restrict any use of the information to criminally investigate or prosecute any alcohol or drug abuse patient.[facility] HospitalIn the event this information is protected by the Federal Confidentiality of Alcohol and Drug Abuse Patient Records regulations: The Federal rules restrict any use of the information to criminally investigate or prosecute any alcohol or drug abuse patient.[facility] HospitalIn the event this information is protected by the Federal Confidentiality of Alcohol and Drug Abuse Patient Records regulations: The Federal rules restrict any use of the information to criminally investigate or prosecute any alcohol or drug abuse patient.[facility] HospitalIn the event this information is protected by the Federal Confidentiality of Alcohol and Drug Abuse Patient Records regulations: The Federal rules restrict any use of the information to criminally investigate or prosecute any alcohol or drug abuse patient.[facility] HospitalIn the event this information is protected by the Federal Confidentiality of Alcohol and Drug Abuse Patient Records regulations: The Federal rules restrict any use of the information to criminally investigate or prosecute any alcohol or drug abuse patient.[facility] HospitalIn the event this information is protected by the Federal Confidentiality of Alcohol and Drug Abuse Patient Records regulations: The Federal rules restrict any use of the information to criminally investigate or prosecute any alcohol or drug abuse patient.[facility] HospitalIn the event this information is protected by the Federal Confidentiality of Alcohol and Drug Abuse Patient Records regulations: The Federal rules restrict any use of the information to criminally investigate or prosecute any alcohol or drug abuse patient.[facility]In the event this information is protected by the Federal Confidentiality of Alcohol and Drug Abuse Patient Records regulations: The Federal rules restrict any use of the information to criminally investigate or prosecute any alcohol or drug abuse patient.[facility] HospitalIn the event this information is protected by the Federal Confidentiality of Alcohol and Drug Abuse Patient Records regulations: The Federal rules restrict any use of the information to criminally investigate or prosecute any alcohol or drug abuse patient.[facility] HospitalIn the event this information is protected by the Federal Confidentiality of Alcohol and Drug Abuse Patient Records regulations: The Federal rules restrict any use of the information to criminally investigate or prosecute any alcohol or drug abuse patient.[facility] HospitalIn the event this information is protected by the Federal Confidentiality of Alcohol and Drug Abuse Patient Records regulations: The Federal rules restrict any use of the information to criminally investigate or prosecute any alcohol or drug abuse patient.[facility] HospitalIn the event this information is protected by the Federal Confidentiality of Alcohol and Drug Abuse Patient Records regulations: The Federal rules restrict any use of the information to criminally investigate or prosecute any alcohol or drug abuse patient.[facility] HospitalIn the event this information is protected by the Federal Confidentiality of Alcohol and Drug Abuse Patient Records regulations: The Federal rules restrict any use of the information to criminally investigate or prosecute any alcohol or drug abuse patient.[facility] HospitalIn the event this information is protected by the Federal Confidentiality of Alcohol and Drug Abuse Patient Records regulations: The Federal rules restrict any use of the information to criminally investigate or prosecute any alcohol or drug abuse patient.[facility] HospitalIn the event this information is protected by the Federal Confidentiality of Alcohol and Drug Abuse Patient Records regulations: The Federal rules restrict any use of the information to criminally investigate or prosecute any alcohol or drug abuse patient.[facility] HospitalIn the event this information is protected by the Federal Confidentiality of Alcohol and Drug Abuse Patient Records regulations: The Federal rules restrict any use of the information to criminally investigate or prosecute any alcohol or drug abuse patient.[facility] HospitalIn the event this information is protected by the Federal Confidentiality of Alcohol and Drug Abuse Patient Records regulations: The Federal rules restrict any use of the information to criminally investigate or prosecute any alcohol or drug abuse patient.[facility] HospitalIn the event this information is protected by the Federal Confidentiality of Alcohol and Drug Abuse Patient Records regulations: The Federal rules restrict any use of the information to criminally investigate or prosecute any alcohol or drug abuse patient.[facility] HospitalIn the event this information is protected by the Federal Confidentiality of Alcohol and Drug Abuse Patient Records regulations: The Federal rules restrict any use of the information to criminally investigate or prosecute any alcohol or drug abuse patient.[facility] HospitalIn the event this information is protected by the Federal Confidentiality of Alcohol and Drug Abuse Patient Records regulations: The Federal rules restrict any use of the information to criminally investigate or prosecute any alcohol or drug abuse patient.[facility] HospitalIn the event this information is protected by the Federal Confidentiality of Alcohol and Drug Abuse Patient Records regulations: The Federal rules restrict any use of the information to criminally investigate or prosecute any alcohol or drug abuse patient.[facility] HospitalIn the event this information is protected by the Federal Confidentiality of Alcohol and Drug Abuse Patient Records regulations: The Federal rules restrict any use of the information to criminally investigate or prosecute any alcohol or drug abuse patient.[facility] HospitalIn the event this information is protected by the Federal Confidentiality of Alcohol and Drug Abuse Patient Records regulations: The Federal rules restrict any use of the information to criminally investigate or prosecute any alcohol or drug abuse patient.[facility] HospitalIn the event this information is protected by the Federal Confidentiality of Alcohol and Drug Abuse Patient Records regulations: The Federal rules restrict any use of the information to criminally investigate or prosecute any alcohol or drug abuse patient.[facility] HospitalIn the event this information is protected by the Federal Confidentiality of Alcohol and Drug Abuse Patient Records regulations: The Federal rules restrict any use of the information to criminally investigate or prosecute any alcohol or drug abuse patient.[facility] HospitalIn the event this information is protected by the Federal Confidentiality of Alcohol and Drug Abuse Patient Records regulations: The Federal rules restrict any use of the information to criminally investigate or prosecute any alcohol or drug abuse patient.[facility] HospitalIn the event this information is protected by the Federal Confidentiality of Alcohol and Drug Abuse Patient Records regulations: The Federal rules restrict any use of the information to criminally investigate or prosecute any alcohol or drug abuse patient.[facility] HospitalIn the event this information is protected by the Federal Confidentiality of Alcohol and Drug Abuse Patient Records regulations: The Federal rules restrict any use of the information to criminally investigate or prosecute any alcohol or drug abuse patient.[facility] HospitalIn the event this information is protected by the Federal Confidentiality of Alcohol and Drug Abuse Patient Records regulations: The Federal rules restrict any use of the information to criminally investigate or prosecute any alcohol or drug abuse patient.[facility] HospitalIn the event this information is protected by the Federal Confidentiality of Alcohol and Drug Abuse Patient Records regulations: The Federal rules restrict any use of the information to criminally investigate or prosecute any alcohol or drug abuse patient.[facility] HospitalIn the event this information is protected by the Federal Confidentiality of Alcohol and Drug Abuse Patient Records regulations: The Federal rules restrict any use of the information to criminally investigate or prosecute any alcohol or drug abuse patient.[facility] HospitalIn the event this information is protected by the Federal Confidentiality of Alcohol and Drug Abuse Patient Records regulations: The Federal rules restrict any use of the information to criminally investigate or prosecute any alcohol or drug abuse patient.[facility] HospitalIn the event this information is protected by the Federal Confidentiality of Alcohol and Drug Abuse Patient Records regulations: The Federal rules restrict any use of the information to criminally investigate or prosecute any alcohol or drug abuse patient.[facility] HospitalIn the event this information is protected by the Federal Confidentiality of Alcohol and Drug Abuse Patient Records regulations: The Federal rules restrict any use of the information to criminally investigate or prosecute any alcohol or drug abuse patient.[facility] HospitalIn the event this information is protected by the Federal Confidentiality of Alcohol and Drug Abuse Patient Records regulations: The Federal rules restrict any use of the information to criminally investigate or prosecute any alcohol or drug abuse patient.[facility] HospitalIn the event this information is protected by the Federal Confidentiality of Alcohol and Drug Abuse Patient Records regulations: The Federal rules restrict any use of the information to criminally investigate or prosecute any alcohol or drug abuse patient.[facility] HospitalIn the event this information is protected by the Federal Confidentiality of Alcohol and Drug Abuse Patient Records regulations: The Federal rules restrict any use of the information to criminally investigate or prosecute any alcohol or drug abuse patient.[facility] HospitalIn the event this information is protected by the Federal Confidentiality of Alcohol and Drug Abuse Patient Records regulations: The Federal rules restrict any use of the information to criminally investigate or prosecute any alcohol or drug abuse patient.[facility] HospitalIn the event this information is protected by the Federal Confidentiality of Alcohol and Drug Abuse Patient Records regulations: The Federal rules restrict any use of the information to criminally investigate or prosecute any alcohol or drug abuse patient.[facility] Reason for Visit (unrecogniz ed section and content) Reason Comments PT Discharge Specialty Diagnoses / Procedures Referred By Contac t Referred To Contact PHYSICAL THERAPY Diagnoses S/P left rotator cuff repair S/P shoulder surgery Z98.890 (ICD-10-CM) - S/P left rotator cuff repair Z98.890 (ICD-10-CM) - S/P shoulder surgery Procedures PT REHAB FOLLOW UP ORDER THERAPEUTIC EXERCISES RE, EA 15 MIN. Diana Tate PA-C [address] [place] [address] Pt [facility] [address] [place] [address] Referral ID Status Reason Start Date Expiration Date Visits Requested Visits Authorized [id number] Authorized PCP Requested Referral Auto-Generate d Referral 02/04/2023 10/06/2023 60 60 Reason Comments Physical Therapy Specialty Diagnoses / Procedures Referred By Contac t Referred To Contact Physical Therapy / PHYSICAL THERAPY Diagnoses Follow up Procedures EST RS PT [facility] Diana Tate PA-C [address] [place] [address] Tonny De Guzman, PT [address] [place] [address] Referral ID Status Reason Start Date Expiration Date V isits Requested Visits Authorized [id number] Authorized 10/07/2022 02/04/2023 20 20 Reason Comments PT Eval Specialty Diagnoses / Procedures Referred By Contac t Referred To Contact Physical Therapy / PHYSICAL THERAPY Diagnoses Follow up Procedures EST RS PT [facility] Diana Tate PA-C [address] [place] [address] Tonny De Guzman, PT [address] [place] [address] Reason Comments PT Discharge Physical Therapy Referral ID Status Reason Start Date Expiration Date V isits Requested Visits Authorized [id number] Authorized 10/07/2022 10/06/2023 20 20 Reason Comments Physical Therapy PT Progress Note Reason Comments Appointment Reason Comments Consult Specialty Diagnoses / Procedures Referred By Contac t Referred To Contact Urology Diagnoses BPH with obstruction/lower urinary tract symptoms Procedures CONSULT TO UROLOGY OFFICE/OUTPATIENT [facility] 60-74 MINUTES Diana Tate PA-C [address] [place] [address] Referral ID Status Reason Start Date Expiration Date V isits Requested Visits Authorized [id number] Closed PCP Requested Referral 02/26/2022 02/19/2023 1 [...] left shoulder Procedures CONSULT TO ORTHOPAEDICS OFFICE/OUTPATIENT NEW [facility] MDM 60-74 MINUTES Isabel Guillaume, [employer] [address] [place] [address] Referral ID Status Reason Start Date Expiration Date V isits Requested Visits Authorized [id number] Closed PCP Requested Referral 05/04/2022 05/04/2023 1 [...] THERAPY INS Diagnoses Coronary artery disease involving te-[place] coronary artery of [place] heart without angina pectoris Claudication of both lower extremities (HCC) Mixed hyperlipidemia Traumatic incomplete tear of left rotator cuff, subsequent encounter Procedures CONSULT TO PHYSICAL THERAPY PHYSICAL THERAPY EVALUATION HIGH COMPLEX 45 MINS Diana Tate PA-C [address] [place] [address] [facility] [address] [place] [address] Referral ID Status Reason Start Date Expiration Date Visits Requested Visits Authorized [id number] Authorized Auto-Generat ed Referral 02/04/2022 10/06/2022 20 20 Specialty Diagnoses / Procedures Referred By Surinder munroe Referred To Contact [facility] Diagnoses Coronary artery disease involving te-moak coronary artery of te-moak heart without angina pectoris Claudication of both lower extremities (HCC) Mixed hyperlipidemia Traumatic incomplete tear of left rotator cuff, subsequent encounter Procedures CONSULT TO PHYSICAL THERAPY PHYSICAL THERAPY EVALUATION HIGH COMPLEX 45 MINS Diana Ttae PA-C [address] [place] [address] [facility] [address] [place] [address] Reason Comments Established Patient 15 weeks 4 days post visit Left shoulder pain with injection given - wants injection Reason Comments Results 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 Comments 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 Reason Comments Cardiac Clearance Reason Comments Consult Reason Comments New Patient Cardiac Clearance Reason Comments Patient Update Reason Comments Results echo Specialty Diagnoses / Procedures Referred By Surinder munroe Referred To Contact [facility] Diagnoses Traumatic incomplete tear of [...] WITH SUBACROMIAL DECOMPRESSION TENODESIS LONG TENDON BICEPS [facility] [address] [place] [address] Referral ID Status Reason Start Date Expiration Date Visits Re quested Visits Authorized [id number] 1 1 Reason Comments Medication Problem Reason Comments Established Patient Follow Up Post Op Reason Comments New Patient Specialty Diagnoses / Procedures Referred By Contac t Referred To Contact Cardiology Diagnoses Coronary artery disease involving te-moak coronary artery of te-moak heart without angina pectoris Claudication of both lower extremities (HCC) Mixed hyperlipidemia Procedures CONSULT TO CARDIOLOGY OFFICE/OUTPATIENT NEW HIGH [facility] 60-74 MINUTES Diana Tate PA-C [address] [place] [address] Referral ID Status Reason Start Date Expiration Date V isits Requested Visits Authorized [id number] Closed PCP Requested Referral 09/14/2022 09/14/2023 1 1 Reason Onset Date Comments Refill Request 01/25/2023 Reason Comments Sore Throat ST, cough, bodyaches and fever x 1 day Specialty Diagnoses / Procedures Referred By Contac t Referred To Contact Cardiology Diagnoses Atherosclerosis of te-moak artery 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) Procedures Vascular US lower extremity arterial duplex left with CHEL Aura Anderson PA-C [address] [place] [address] [address] Non-Invasive Cardiology [address] [place] [address] Referral ID Status Reason Start Date Expiration Date V isits Requested Visits Authorized [id number] Closed Perform Procedure 03/05/2023 09/01/2023 1 1 Reason Comments Follow-up recall arterial dupl ex 03/20/23 Reason Onset Date Comments Test Scheduling 05/30/2023 PVR Reason Comments Covid19 Concern + x6 days, cough, SO B, chest congestion Reason Onset Date Comments Transition Of Care 11/21/2023 [facility] 11/15/23- 11/20/23 Flu A, COPD Reason Comments Follow Up Hospital follow up d /c 11/20/2023ER 11/28/2023 Reason Comments Follow Up 4 week Reason Onset Date Comments Test Scheduling 01/02/2024 Recall Reason Comments Follow Up Reason Comments Cough sob x 3 weeks, incre ased this am Reason Comments Coughing Up Blood Specialty Diagnoses / Procedures Referred By Surinder t Referred To Contact Cardiology Diagnoses Atherosclerosis of te-moak artery 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) Procedures Vascular US lower extremity arterial duplex with graft right with CHEL Vascular US lower extremity arterial duplex with graft left with CHEL Vascular US lower extremity arterial duplex with graft left Vascular US lower extremity arterial duplex with graft left with CHEL Jennifer Sutton, CELL MAKER - HARDBOARD PANEL PRINTER [address] [place] [address] Referral ID Status Reason Start Date Expiration Date V isits Requested Visits Authorized [id number] Closed Perform Procedure 03/21/2023 03/20/2024 1 1 Reason Comments Clinical Update Reason Comments Follow Up 6 month Reason Comments Results Vasular studies Reason Comments Follow-up recall AD 03/23/24 Specialty Diagnoses / Procedures Referred By Surinder munroe Referred To Contact Radiology / [facility] Diagnoses Pneumonia of right lower lobe due to infectious organism main lobby Procedures RADIOLOGIC EXAM CHEST 2 VIEWS XR CHEST Diana Tate PA-C [address] [place] [address] [facility] [address] [place] [address] Referral ID Status Reason Start Date Expiration Date Visits Re quested Visits Authorized [id number] Closed 03/31/2024 10/06/2024 1 1 Reason Comments [facility] - verbal orders Reason Comments requesting verbal order Specialty Diagnoses / Procedures Referred By Surinder munroe Referred To Contact Radiology / [facility] Diagnoses Right-sided thoracic back pain, unspecified chronicity XR main lobby Procedures RADIOLOGIC EXAM CHEST 2 VIEWS XR CHEST Melissa Layne, CELL MAKER.HARDBOARD PANEL PRINTER [address] [place] [address] [facility] [address] [place] [address] Referral ID Status Reason Start Date Expiration Date Visits Re quested Visits Authorized [id number] Closed 07/07/2024 10/06/2024 1 1 Reason Comments [facility], OT Reason Comments PT HH POC Reason Comments FYI-No Action Needed Care Teams (unrecognized sec tion and content) Nurses' Association Counselor Relationship Specialty Start Date End Date Diana Tate PA-C [address] [place] [address] PCP - General Family Practice 05/29/17 Nurses' Association Counselor Relationship Specialty Start Date End Date Diana Tate PA-C [address] [place] [address] PCP - General Family Practice 05/29/17 Nurses' Association Counselor Relationship Specialty Start Date End Date Diana Tate PA-C [address] [facility] [place] [address] PCP - General Family Practice 05/29/17 Nurses' Association Counselor Relationship Specialty Start Date End Date Diana Tate PA-C [address] [place] [address] PCP - General Family Practice 05/29/17 Nurses' Association Counselor Relationship Specialty Start Date End Date Diana Tate PA-C [address] [place] [address] PCP - General Family Practice 05/29/17 Nurses' Association Counselor Relationship Specialty Start Date End Date Diana Tate PA-C [address] [facility] [place] [address] PCP - General Family Practice 05/29/17 Nurses' Association Counselor Relationship Specialty Start Date End Date Diana Tate PA-C [address] [place] [address] PCP - General Family Practice 05/29/17 Nurses' Association Counselor Relationship Specialty Start Date End Date Diana Tate PA-C [address] [facility] [place] [address] PCP - General Family Practice 05/29/17 Nurses' Association Counselor Relationship Specialty Start Date End Date Diana Tate PA-C [address] [place] [address] PCP - General Family Medicine 05/29/17 Nurses' Association Counselor Relationship Specialty Start Date End Date Diana Tate PA-C [address] [place] [address] PCP - General Family Medicine 05/29/17 Nurses' Association Counselor Relationship Specialty Start Date End Date Diana Tate PA-C [address] [place] [address] PCP - General Family Medicine 05/29/17 Nurses' Association Counselor Relationship Specialty Start Date End Date Diana Tate PA-C [address] [place] [address] PCP - General Family Medicine 05/29/17 Nurses' Association Counselor Relationship Specialty Start Date End Date Diana Tate PA-C [address] [place] [address] PCP - General Family Medicine 05/29/17 Nurses' Association Counselor Relationship Specialty Start Date End Date Diana Tate PA-C [address] [place] [address] PCP - General Family Medicine 05/29/17 Nurses' Association Counselor Relationship Specialty Start Date End Date Diana Tate PA-C [address] [place] [address] PCP - General Family Medicine 05/29/17 Nurses' Association Counselor Relationship Specialty Start Date End Date Diana Tate PA-C [address] [place] [address] PCP - General Family Medicine 05/29/17 Nurses' Association Counselor Relationship Specialty Start Date End Date Diana Tate PA-C [address] [place] [address] PCP - General Family Medicine 05/29/17 Nurses' Association Counselor Relationship Specialty Start Date End Date Diana Tate PA-C [address] [place] [address] PCP - General Family Medicine 05/29/17 Nurses' Association Counselor Relationship Specialty Start Date End Date Diana Tate PA-C [address] [place] [address] PCP - General Family Medicine 05/29/17 Nurses' Association Counselor Relationship Specialty Start Date End Date Diana Tate PA-C [address] [place] [address] PCP - General Family Medicine 05/29/17 Nurses' Association Counselor Relationship Specialty Start Date End Date Diana Tate PA-C [address] [place] [address] PCP - General Family Medicine 05/29/17 Nurses' Association Counselor Relationship Specialty Start Date End Date Diana Tate PA-C [address] [place] [address] PCP - General Family Medicine 05/29/17 Nurses' Association Counselor Relationship Specialty Start Date End Date Diana Tate PA-C [address] [place] [address] PCP - General Family Medicine 05/29/17 Ledy Ivy MD [address] [place] [address] Primary Staff Physician Cardiology 12/18/22 Nurses' Association Counselor Relationship Specialty Start Date End Date Diana Tate PA-C [address] [place] [address] PCP - General Family Medicine 05/29/17 Ledy Ivy MD [address] [place] [address] Primary Staff Physician Cardiology 12/18/22 Nurses' Association Counselor Relationship Specialty Start Date End Date Diana Tate PA-C [address] [place] [address] PCP - General Family Medicine 05/29/17 Ledy Ivy MD [address] [place] [address] Primary Staff Physician Cardiology 12/18/22 Nurses' Association Counselor Relationship Specialty Start Date End Date Diana Tate PA-C [address] [place] [address] PCP - General Family Medicine 05/29/17 Ledy Ivy MD [address] [place] [address] Primary Staff Physician Cardiology 12/18/22 Nurses' Association Counselor Relationship Specialty Start Date End Date Diana Tate PA-C [address] [place] [address] PCP - General Family Medicine 05/29/17 Ledy Ivy MD [address] [place] [address] Primary Staff Physician Cardiology 12/18/22 Nurses' Association Counselor Relationship Specialty Start Date End Date Diana Tate PA-C [address] [place] [address] PCP - General Family Medicine 05/29/17 Ledy Ivy MD [address] [place] [address] Primary Staff Physician Cardiology 12/18/22 Nurses' Association Counselor Relationship Specialty Start Date End Date Diana Tate PA-C [address] [place] [address] PCP - General Family Medicine 05/29/17 [place] [address] [place] [address] Primary Staff Physician Cardiology 12/18/22 Nurses' Association Counselor Relationship Specialty Start Date End Date Diana Tate PA-C [address] [place] [address] PCP - General Family Medicine 05/29/17 [place] [address] [place] [address] Primary Staff Physician Cardiology 12/18/22 Nurses' Association Counselor Relationship Specialty Start Date End Date Diana Tate PA-C [address] [place] [address] PCP - General Family Medicine 05/29/17 [place] [address] [place] [address] Primary Staff Physician Cardiology 12/18/22 Nurses' Association Counselor Relationship Specialty Start Date End Date Diana Tate PA-C [address] [place] [address] PCP - General Family Medicine 05/29/17 Ledy Ivy MD [address] [place] [address] Primary Staff Physician Cardiology 12/18/22 Nurses' Association Counselor Relationship Specialty Start Date End Date Diana Tate PA-C [address] [place] [address] PCP - General Family Medicine 05/29/17 [place] [address] [place] [address] Primary Staff Physician Cardiology 12/18/22 Nurses' Association Counselor Relationship Specialty Start Date End Date Diana Tate [address] [place] [address] PCP - General 12/17/17 Nurses' Association Counselor Relationship Specialty Start Date End Date Diana Tate PA-C [address] [place] [address] PCP - General Family Medicine 05/29/17 [place] [address] [place] [address] Primary Staff Physician Cardiology 12/18/22 Nurses' Association Counselor Relationship Specialty Start Date End Date Diana Tate [address] [place] [address] PCP - General 12/17/17 Jennifer Sutton APRN - HARDBOARD PANEL PRINTER [address] [place] [phone] Nurse Practitioner Nurse Practitioner 05/27/23 Nurses' Association Counselor Relationship Specialty Start Date End Date Diana Tate [address] [place] [address] PCP - General 12/17/17 Jennifer Sutton APRN - HARDBOARD PANEL PRINTER [address] [place] [address] Nurse Practitioner Nurse Practitioner 05/27/23 Nurses' Association Counselor Relationship Specialty Start Date End Date Diana Tate PA-C [address] [place] [address] PCP - General Family Medicine 05/29/17 Ledy Ivy MD [address] [place] [address] Primary Staff Physician Cardiology 12/18/22 Nurses' Association Counselor Relationship Specialty Start Date End Date Diana Tate PA-C [address] [place] [address] PCP - General Family Medicine 05/29/17 Ledy Ivy MD [address] [place] [address] Primary Staff Physician Cardiology 12/18/22 Nurses' Association Counselor Relationship Specialty Start Date End Date Dane Ortiz MD [address] [place] [phone] PCP - General 03/03/10 Nurses' Association Counselor Relationship Specialty Start Date End Date Diana Tate PA-C [address] [place] [address] PCP - General Family Medicine 05/29/17 [place] [address] [place] [address] [address], [address] [place] [address] Primary Staff Physician Cardiology 12/18/22 Nurses' Association Counselor Relationship Specialty Start Date End Date Diana Tate PA-C [address] [place] [address] PCP - General Family Medicine 05/29/17 Ledy Ivy MD [address] [facility] [address], [address] [place] [address] Primary Staff Physician Cardiology 12/18/22 Nurses' Association Counselor Relationship Specialty Start Date End Date Diana Tate PA-C [address] [place], [place] [address] PCP - General Family Medicine 05/29/17 Ledy Ivy MD [address] [facility], [address], [address] [place] [address] Primary Staff Physician Cardiology 12/18/22 Nurses' Association Counselor Relationship Specialty Start Date End Date Diana Tate [address] [place], [place] [address] PCP - General 12/17/17 Jennifer Sutton APRN - HARDBOARD PANEL PRINTER [address] [place] [phone] Nurse Practitioner Nurse Practitioner 05/27/23 Nurses' Association Counselor Relationship Specialty Start Date End Date Diana Tate [address] [place] [address] PCP - General 12/17/17 Jennifer Sutton APRN - HARDBOARD PANEL PRINTER [address] [place] [phone] Nurse Practitioner Nurse Practitioner 05/27/23 Nurses' Association Counselor Relationship Specialty Start Date End Date Dane Ortiz MD [address] [place] [phone] PCP - General 03/03/10 Nurses' Association Counselor Relationship Specialty Start Date End Date Diana Tate PA-C [address] [place] [address] PCP - General Family Medicine 05/29/17 Ledy Ivy MD [address] [facility] [address], [address] [place] [address] Primary Staff Physician Cardiology 12/18/22 Nurses' Association Counselor Relationship Specialty Start Date End Date Diana Tate PA-C [address] [place] [address] PCP - General Family Medicine 05/29/17 [place] [address] [place] [address] [address], [address] [place] [address] Primary Staff Physician Cardiology 12/18/22 Nurses' Association Counselor Relationship Specialty Start Date End Date Diana Tate PA-C [address] [place], [place] [address] PCP - General Family Medicine 05/29/17 [place] [address] [place] [address] [address], [address] [place] [address] Primary Staff Physician Cardiology 12/18/22 Nurses' Association Counselor Relationship Specialty Start Date End Date Diana Tate [address] [place] [address] PCP - General 12/17/17 Jennifer Sutton APRN - HARDBOARD PANEL PRINTER [address] [place] [phone] Nurse Practitioner Nurse Practitioner 05/27/23 Nurses' Association Counselor Relationship Specialty Start Date End Date Diana Tate PA-C [address] [place] [address] PCP - General Family Medicine 05/29/17 Ledy Ivy MD [address] [place] [address] [address], [address] [place] [address] Primary Staff Physician Cardiology 12/18/22 Nurses' Association Counselor Relationship Specialty Start Date End Date Diana Tate PA-C [address] [place] [address] PCP - General Family Medicine 05/29/17 Ledy Ivy MD [address] [facility], [facility], [address] [place] [address] Primary Staff Physician Cardiology 12/18/22 Nurses' Association Counselor Relationship Specialty Start Date End Date Diana Tate PA-C [address] [place], [place] 561891 PCP - General Family Medicine 05/29/17 Ledy Ivy MD [address] [facility] [address], [address] [place], [place] [phone] Primary Staff Physician Cardiology 12/18/22 Nurses' Association Counselor Relationship Specialty Start Date End Date Diana Tate [address] [place] [address] PCP - General 12/17/17 Jennifer Sutton APRN - HARDBOARD PANEL PRINTER [address] [facility] [address] [place] [phone] Nurse Practitioner Nurse Practitioner 05/27/23 Nurses' Association Counselor Relationship Specialty Start Date End Date Diana Tate [address] [place] [address] PCP - General 12/17/17 Jennifer Sutton APRN - HARDBOARD PANEL PRINTER [address] [facility] [address] [place] [phone] Nurse Practitioner Nurse Practitioner 05/27/23 Nurses' Association Counselor Relationship Specialty Start Date End Date Diana Tate PA-C [address] [place] [address] PCP - General Family Medicine 05/29/17 Ledy Ivy MD [address] [facility] [address], [address] [place] [address] Primary Staff Physician Cardiology 12/18/22 Nurses' Association Counselor Relationship Specialty Start Date End Date Diana Tate PA-C [address] [place] [address] PCP - General Family Medicine 05/29/17 Ledy Ivy MD [address] [place] [address] [address], [address] [place] [address] Primary Staff Physician Cardiology 12/18/22 Nurses' Association Counselor Relationship Specialty Start Date End Date Diana Tate PA-C [address] [place] [address] PCP - General Family Medicine 05/29/17 Ledy Ivy MD [facility] [address], [address] [place] [address] Primary Staff Physician Cardiology 12/18/22 Nurses' Association Counselor Relationship Specialty Start Date End Date Diana Tate PA-C [address] [place] [address] PCP - General Family Medicine 05/29/17 Ledy Ivy MD [address] [facility] [address], [address] [place] [address] Primary Staff Physician Cardiology 12/18/22 Nurses' Association Counselor Relationship Specialty Start Date End Date Diana Tate PA-C [address] [place] [address] PCP - General Family Medicine 05/29/17 Ledy Ivy MD [address] [facility] [address], [address] [place] [address] Primary Staff Physician Cardiology 12/18/22 Nurses' Association Counselor Relationship Specialty Start Date End Date Diana Tate PA-C [address] [place] [address] PCP - General Family Medicine 05/29/17 Ledy Ivy MD [address] [facility] [address], [address] [place] [address] Primary Staff Physician Cardiology 12/18/22 Nurses' Association Counselor Relationship Specialty Start Date End Date Diana Tate PA-C [address] [place] [address] PCP - General Family Medicine 05/29/17 Nurses' Association Counselor Relationship Specialty Start Date End Date Diana Tate PA-C [address] [place] [address] PCP - General Family Medicine 05/29/17 Ledy Ivy MD [address] [facility], [facility], [address] [place] [address] Primary Staff Physician Cardiology 12/18/22 Nurses' Association Counselor Relationship Specialty Start Date End Date Diana Tate PA-C [address] [place], [place] 306671 PCP - General Family Medicine 05/29/17 Ledy Ivy MD [address] [facility] [address], [address] [place] [phone] Primary Staff Physician Cardiology 12/18/22 Nurses' Association Counselor Relationship Specialty Start Date End Date Diana Tate PA-C [address] [place] [address] PCP - General Family Medicine 05/29/17 Ledy Ivy MD [facility] [address], [address] [place] [phone] Primary Staff Physician Cardiology 12/18/22 Nurses' Association Counselor Relationship Specialty Start Date End Date Diana Tate PA-C [address] [place] [address] PCP - General Family Medicine 05/29/17 Ledy Ivy MD [address] [facility] [address], [address] [place] [address] Primary Staff Physician Cardiology 12/18/22 Nurses' Association Counselor Relationship Specialty Start Date End Date Diana Tate PA-C [address] [place], [place] [address]30[address] PCP - General Family Medicine 05/29/17 Ledy Ivy MD [address] [facility] [address], [address] [place] [phone] Primary Staff Physician Cardiology 12/18/22 Nurses' Association Counselor Relationship Specialty Start Date End Date Diana Tate PA-C [address] [place], [place] 363881 PCP - General Family Medicine 05/29/17 Nurses' Association Counselor Relationship Specialty Start Date End Date Diana Tate PA-C [address] [place], [place] 020341 PCP - General Family Medicine 05/29/17 Ledy Ivy MD [address] [facility], [address], [address] [place], [place] [phone] Primary Staff Physician Cardiology 12/18/22 Nurses' Association Counselor Relationship Specialty Start Date End Date Dane Ortiz MD [address] [place] [phone] PCP - General 03/03/10 Scheduled Active and Recently Administ ered Medications (unrecognized section and content) Medication Order 01/01/2023 01/02/2023 01/03/2023 ceFAZolin iv piggyback 2 g in D5W (iso-osmotic) 100 mL (ANCEF) (COMPLETED) 2 g, INTRAVENOUS, at 200 mL/hr, Administer over 30 Minutes, PRE-OP ONCE, 1 dose, On Lyssa 01/03/23 at 1200, Orthopedic Cases - MRSA Negative or Low Risk PRE-OP ANTIBIOTIC ADMINISTER ONLY IN SURGICAL AREA DO NOT ADMINSTER ON THE FLOOR Refrigerate, Please document the antimicrobial indication: Prophylaxis, Preprocedure 1222 (Sent with Karely ent - Provider: Annita Patel RN)1326 (Given - Provider: Margo Taylor APRN.INFORMATION CLERK CASHIER) midazolam 1-6 mg injection (VERSED) (COMPLETED) 1-6 mg, INTRAVENOUS, ONCE, 1 dose, On Lyssa 01/03/23 at 0830 1253 (Given - Provid er: Kemi Walton RN - Comment: pt not arrived) promethazine 12.5 mg tab(s) (PHENERGAN) (COMPLETED) 12.5 mg, ORAL, NOW, 1 dose, On Lyssa 01/03/23 at 0830 1223 (Given - Provid er: Annita Patel RN) Continuous Medication Order 01/01/2023 01/02/2023 01/03/2023 lactated [...] Intraprocedure 1419 (Given - Provid er: Prachi Doss, - Comment: 3,000 ml bags (X2) of [...] BE BASED ON THE PRIMARY CLINICAL RECORDS. [employer] provides no warranty or guarantee of the accuracy or completeness of information in this document.
--- NOTE | 2024-07-25 09:14 | RAD_ITS ---
INDICATION: Pain EXAMINATION/TECHNIQUE: X-RAY - XR Abdomen Series W/ Chest 1 View COMPARISON: 06/13/2024 FINDINGS: --Chest: LINES/DEVICES: Median sternotomy wires present. Left subclavian hemodialysis catheter. Right subclavian endovascular stent. . LUNGS: Redemonstration of a large calcified pleural plaque in the left lower lobe. Increased perihilar interstitial markings. MEDIASTINUM AND CARDIOVASCULAR STRUCTURES: The heart is mildly enlarged. Tortuous and calcified thoracic aorta. BONES AND SOFT TISSUES: Mild degenerative changes of the visualized spine. --Abdomen: BOWEL GAS PATTERN: Non-obstructive. No bowel or stomach distention. FREE AIR: None visualized. ORGANOMEGALY: Not seen. CALCIFICATIONS: Severe vascular calcifications. BONES AND SOFT TISSUES: Mild degenerative changes RAD/Acute Abdomen Inc Chest IMPRESSION: Increased perihilar interstitial markings could represent edema and/or infection. Chronic findings including pleural thickening and a large calcified pleural plaque in the left lower lobe. Electronically Signed: Galindo Kim MD at 11:01 EDT ,
[2024-07-25 09:17] LABS: Absolute Lymphocyte Count 2.58 X10^3/uL (0.83-4.51); Absolute Neutrophil Count 3.3 X10^3/uL (2.0-7.7); Basophil# 0.03 X10^3/uL; Basophil% 0.4 % (0-1); Eosinophil# 0.21 X10^3/uL; Eosinophils% 3.1 % (0-5); Hematocrit 30.9 % (40-54); Hemoglobin 9.7 g/dL (13.0-16.5); Lymphocyte # 2.58 X10^3/ul (0.83-4.51); Lymphocyte % 38.5 % (19-41); Mean Corp Hgb Conc 31.4 g/dL (32-36); Mean Corpuscular Hgb 29.4 pg (27.0-32.0); Mean Corpuscular Volume 93.6 fL (80-94); Mean Platelet Vol. 11.8 fl (6.2-12.0); Monocyte# 0.58 X10^3/uL; Monocyte% 8.6 % (0-10); NRBC Flagged by Analyzer 0 % (0-5); Neutrophil % 49.3 % (47-70); POSITIVE COUNT YES; Platelet Count 81 K/mm3 (150-450); RBC Distribution Width CV 15.3 % (11.6-14.6); RBC Distribution Width SD 52.8 fl (35.1-43.9); White Blood Count 6.7 K/mm3 (4.4-11.0)
[2024-07-25 09:31] LABS: ALB/GLOB Ratio 1.1 RATIO (0.9-2.4); AST(SGOT) 27 U/L (15-37); Alanine Aminotransfer ALT/SGPT 38 U/L (16-61); Albumin, Serum 3.5 g/dL (3.2-5.0); Alkaline Phosphatase 160 U/L (45-117); Anion Gap 5 (5-15); BUN 41 mg/dL (7-18); BUN/Creat Ratio 21.5 RATIO (10-20); Calcium,Total 9.6 mg/dL (8.5-10.1); Chloride 118 mmol/L (98-107); Creatinine, Serum 1.91 mg/dL (0.70-1.30); EST Glomerular Filtration Rate 39 mL/min (>60); Est Glom Filt Rate - Afr Amer 47 mL/min (>60); Globulin 3.1 g/dL (2.2-4.2); Glucose 99 mg/dL (74-106); Lactic Acid 0.9 mmol/L (0.4-1.9); Lipase 47 U/L (13-75); Potassium 4.4 mmol/L (3.5-5.1); Protein, Total 6.6 g/dL (6.4-8.2); Sodium Level 145 mmol/L (136-145); Troponin-I HS 68 pg/mL (3.0-78.0)
[2024-07-25] MEDS: Famotidine 200 MG/20 ML MDV 20 MG in 0.9% Normal Saline (Pres. free 8 ML 300 MG IV (09:31)
[2024-07-25 09:50] LABS: Bacteria 0 SEEN /hpf (None Seen); Mucous, Urine 0 SEEN /hpf (<or=2+); Squamous Epithelial Cells - UA 0 SEEN /hpf (0-5)
[2024-07-25 09:52] LABS: Color, Urine Yellow (Yellow); Glucose, Dipstick Normal (Normal); Ketone-Dipstick Negative (Negative); Leukocyte Esterase-Dipstick 25 /ul (Negative); Nitrite-Dipstick Negative (Negative); Occult Blood-Urine 250 /ul (Negative); Protein-Dipstick 100 mg/dl (Negative); Specific Gravity, Urine 1.015 (1.002-1.030); Urine Bilirubin Dipstick Negative (Negative); Urine Clarity Clear (Clear); Urine Urobilinogen Normal (Normal)
[2024-07-25 10:11] LABS: Red Blood Cells-Urine 10-25 SEEN /hpf (0-5)
[2024-07-25 10:12] LABS: White Blood Cells 0-5 SEEN /hpf (0-5)
[2024-07-25 10:35] VITALS: BP 122/69; PULSE 69; RESP 19; O2SAT 94
--- NOTE | 2024-07-25 11:42 | US_ITS ---
INDICATION: PAIN EXAMINATION: US Gallbladder (abdomen limited) TECHNIQUE: Robbins-scale and color Doppler imaging was performed of the right upper abdominal quadrant. COMPARISON: None. Findings: The liver is homogenous and normal in echogenicity and echotexture. There is no evidence of contour nodularity. No focal hepatic mass is identified. The main portal vein is normal in size and patent demonstrating hepatopetal flow. The gallbladder has a 1.5 cm stone in the neck of the gallbladder. There is pericholecystic fluid adjacent to a kink in the gallbladder wall concerning for possible perforation... Sonographic Andre''s tenderness is appreciated. There is mild intrahepatic biliary ductal dilatation. The CBD is dilated measuring 12 mm at the level of the kevin hepatis. The pancreas is obscured by overlying bowel gas. Right kidney is surgically absent. US/Gallbladder IMPRESSION: Findings suspicious for acute cholecystitis, likely perforated. Dilatation of the CBD and intrahepatic biliary ducts concerning for choledocholithiasis. Consider MRCP. N.B. : The above Results were Read Back by Galindo Kim MD to Miller Larios DO, and understanding confirmed on 07/25/2024 14:45:50 (ET). Electronically Signed: Galindo Kim MD at 15:07 EDT ,
[2024-07-25 11:44] LABS: Troponin-I HS 57 pg/mL (3.0-78.0)
[2024-07-25 12:00] VITALS: PULSE 67; RESP 17; O2SAT 97
[2024-07-25 14:00] VITALS: BP 135/77; PULSE 77; RESP 18
[2024-07-25 14:06] VITALS: BMI 22.9
[2024-07-25] MEDS: HYDROmorphone 0.5 MG/0.5 ML SYRINGE IV (14:48)
[2024-07-25] MEDS: 0.9% Normal Saline (1000mL) 1,000 ML 999 ML IV (15:24)
[2024-07-25] MEDS: Piperacil/Tazobactam 3.375 GM in 0.9% Normal Saline (50mL MB+) 50 ML IV (15:25)
[2024-07-25 16:00] VITALS: BP 113/73; PULSE 68; RESP 16
[2024-07-25 16:37] VITALS: BP 113/73; PULSE 68; RESP 16; TEMP 36.2; O2SAT 97
[2024-07-25] MEDS: HYDROmorphone 1 MG/ML Syringe 0.5 MG IV (16:55)
== END 2024-07-25 17:11 | disposition short-term general hospital (02) ==
LOC: ED 09:01
PROVIDERS: Emergency Provider Surgery; PCP Physician Assistant; Visit Provider Surgery
DX: K81.0 Acute cholecystitis (principal); N18.4 Chronic kidney disease, stage 4 (severe); I13.0 Hypertensive heart and chronic kidney disease with heart failure and stage 1 through stage 4 chronic kidney disease, or unspecified chronic kidney disease; I50.32 Chronic diastolic (congestive) heart failure; J44.9 Chronic obstructive pulmonary disease, unspecified; E78.5 Hyperlipidemia, unspecified; K21.9 Gastro-esophageal reflux disease without esophagitis; D69.6 Thrombocytopenia, unspecified; D64.9 Anemia, unspecified; Z94.0 Kidney transplant status; I25.10 Atherosclerotic heart disease of native coronary artery without angina pectoris; Z86.718 Personal history of other venous thrombosis and embolism; Z86.711 Personal history of pulmonary embolism; Z87.891 Personal history of nicotine dependence; Z95.1 Presence of aortocoronary bypass graft
CPT/HCPCS: 74022; 74176; 76705; 80053; 81001; 83605; 83690; 84484; 85025; 93005; 96361; 96365; 96375; 96376; 99283; J7030; A4216; J2405; J3490

== ENCOUNTER 2024-11-08 09:31 | Emergency (ER) | payer OTHER, SELFPAY ==
[2024-11-08] VITALS (15 sets, daily range): BP systolic 114–149; BP diastolic 59–90; PULSE 62–86; RESP 15–24; TEMP 36.6–37.2; O2SAT 94–99; BMI 21.2; BMI 21.5
--- NOTE | 2024-11-08 10:09 | EKG12_ITS ---
Test Reason : GENERAL Blood Pressure : */* mmHG Vent. Rate : 66 BPM Atrial Rate : 66 BPM P-R Int : 132 ms QRS Dur : 156 ms QT Int : 464 ms P-R-T Axes : 35 -71 34 degrees QTcB Int : 486 ms Normal sinus rhythm Right bundle branch block Left anterior fascicular block Bifascicular block Abnormal ECG Confirmed by KAITLIN BURT, LANCE ([id number]), clinical editor POLY EVANGELISTA ([id number]) on 11/09/2024 8:24:20 AM Referred By: Confirmed By: LANCE MADRIGAL MD
--- NOTE | 2024-11-08 10:09 | RAD_ITS ---
PROCEDURE: CHEST 1 VIEW (PORTABLE) REASON FOR EXAM: Cough TECHNIQUE: Single frontal image including the chest and abdomen. COMPARISON: Reviewed. FINDINGS: The cardiothymic contour is normal. Stable. Sternotomy changes. minimal bibasilar airspace disease.. No pneumothorax. Interval removal of left-sided central venous catheter. RAD/Chest 1 View (Portable) IMPRESSION: Improved but persistent minimal bibasilar airspace opacities with possible unde rlying small pleural effusions. Reading Location: [facility]
--- NOTE | 2024-11-08 10:11 | EDS_ITS ---
HPI History of Present Illness Chief Complaint: Nausea/Vomiting/Diarrhea Informant: patient, spouse/S.O. and family Onset/Context/Timing Onset: Days Context: Gradual Onset Timing: Continuous Quality: Confusion Location: Generalized Worsened by: Nothing Relieved by: Nothing Narrative Narrative: Patient presents with nausea, vomiting, diarrhea, and confusion that has been getting worse over the past several days. Family states patient started having some confusion 2 days ago. Family states the patient has been having some shaking chills but denies any fevers. Patient admits to a headache. Patient states he is unable to keep anything down. Patient states that diarrhea is watery. Patient denies any abdominal pain. Patient has a history of renal transplant x 2. 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 Pulmonary embolism Neurogenic bladder Hyperparathyroidism Hyperhomocystinemia GERD (gastroesophageal reflux disease) DVT (deep venous thrombosis) Depression Claudication VIC (obstructive sleep apnea) Chronic obstructive pulmonary disease (COPD) Chronic kidney disease, stage 3 Home Medications ?Medication ?Instructions ?Recorded ?Last Taken ?Type doxazosin 8 mg tablet (Cardura) 4 mg PO DAILY BLADDER 02/21/14 07/21/19 History atorvastatin 80 mg tablet 80 mg PO DAILY cholesterol 0 12/30/17 07/21/19 History acetaminophen 500 mg tablet 1,000 mg PO Q8 PRN fever o r pain 11/15/23 Unknown History albuterol sulfate 90 mcg/actuation 1 - 2 puff inhalati on Q4H PRN PRN 11/20/23 Unknown Rx aerosol inhaler Shortness Of Breath ##1 ipratropium 0.5 mg-albuterol 3 mg 3 ml inhalation Q6H PRN PRN 05/19/24 Unknown History (2.5 mg base)/3 mL nebulization wheezing soln prednisone 5 mg tablet 5 mg PO DAILY 05/19/24 Unkno wn History apixaban 5 mg tablet 5 mg PO BID 06/13/24 Unknown History carvedilol 6.25 mg tablet 6.25 mg PO BID 11/08/24 Unkn own History cholecalciferol (vitamin D3) 50 100 mcg PO DAILY 11/08 Unknown History mcg (2,000 unit) capsule clopidogrel 75 mg tablet 75 mg PO DAILY 11/08/24 Unkn own History isosorbide mononitrate 30 mg 60 mg PO DAILY 11/08/24 U nknown History tablet,extended release 24 hr losartan 25 mg tablet 25 mg PO DAILY 11/08/24 Unkn own History pantoprazole 40 mg tablet,delayed 40 mg PO DAILY 11/08 Unknown History release tacrolimus 0.75 mg tablet,extended 1.5 mg PO DAILY 12/01 Unknown History release 24 hr (Envarsus XR) Allergy/AdvReac Type Severity Reaction Status Date / Time propoxyphene napsylate (From Allergy Hives Verified 05/18/24 20:11 Darvocet-N) venom-honey bee (bee venom Allergy Hives Verified 05/18/24 20:11 (honey bee)) Family History Father Arthritis Cancer Lung cancer, 1990 CAD (coronary artery disease) Mother CAD (coronary artery disease) Diet 2012 Surgical History S/P femoral-femoral bypass surgery History of quadruple bypass S/P pericardial window creation (~1991) History of lung biopsy (~2007) Renal transplant recipient History of renal transplant Social History household members: spouse housing: house Smoking Status: Former smoker pack-years: 19 Tobacco: How many years used: 15 alcohol intake: never substance use type: does not use ROS ROS ED Constitutional Constitutional ED: Reports chills; Denies fever(s) Eyes Eyes: Denies blurry vision or change in vision ENT ENT ED: Denies rhinorrhea or sore throat Cardiovascular Cardiovascular: Denies chest pain or palpitations Respiratory/Chest Respiratory/Chest: Denies cough or dyspnea Gastrointestinal Gastrointestinal: Reports diarrhea, nausea and vomiting Genitourinary Genitourinary ED: Denies dysuria or hematuria Musculoskeletal Musculoskeletal: Denies back pain or neck pain Integumentary Denies abscess or rash Neurologic Neurologic: Reports headache(s); Denies weakness Allergic/Immunologic Allergic/Immunologic ED: Denies mouth swelling or urticaria EXAM Physical Exam Const Vital Signs: 11/08/24 09:32 11/08/24 09:34 11/08/24 10:09 Temperature 98.9 F 98.9 F Temperature Source Temporal Oral Pulse Rate 69 68 Respiratory Rate 16 18 Blood Pressure 114/72 132/71 H Blood Pressure Mean 86 91 Pulse Ox 99 98 Oxygen Delivery Method Room Air Room Air Room Air 11/08/24 10:34 11/08/24 11:00 11/08/24 12:00 Temperature 98.9 F 98.3 F 98.1 F Temperature Source Temporal Oral Oral Pulse Rate 69 65 65 Respiratory Rate 18 18 16 Blood Pressure 114/72 120/59 L 149/79 H Blood Pressure Mean 86 79 102 Pulse Ox 99 95 94 Oxygen Delivery Method Room Air Room Air Room Air 11/08/24 12:52 11/08/24 13:00 11/08/24 13:00 Temperature 98.3 F Temperature Source Oral Pulse Rate 68 68 62 Respiratory Rate 16 18 18 Blood Pressure 141/90 H 141/90 H Blood Pressure Mean 106 107 Pulse Ox 95 Oxygen Delivery Method Room Air 11/08/24 13:15 11/08/24 13:30 11/08/24 13:45 Temperature Temperature Source Pulse Rate 65 65 62 Respiratory Rate 20 H 17 18 Blood Pressure 148/86 H Blood Pressure Mean 104 Pulse Ox 98 Oxygen Delivery Method 11/08/24 14:00 11/08/24 14:00 11/08/24 15:00 Temperature 98 F 97.9 F Temperature Source Temporal Temporal Pulse Rate 71 72 86 Respiratory Rate 24 H 18 19 H Blood Pressure 135/73 H 131/70 H Blood Pressure Mean 93 90 Pulse Ox 96 96 97 Oxygen Delivery Method Room Air Room Air Positive well nourished and well developed General Appearance ED: well developed and NAD HEENT Reports dry mucous membranes Mouth ED: Yes dry mucous membranes Mouth: dry mucous membranes Neck supple and no JVD Resp normal respiratory effort Auscultation: diminished lung sounds Cardio regular rate and regular rhythm GI non-tender and non-distended Palpation: soft Neuro CN's II-XII intact bilaterally and no sensory deficits noted Sensorium / Orientation: alert Motor Exam: strength 5/5 throughout Psych mental status grossly normal MDM MDM MDM Narrative Medical decision making narrative: Differential diagnosis includes sepsis, pneumonia, viral illness, urinary tract infection, gastroenteritis, cardiac dysrhythmia, cardiac ischemia, dehydration, electrolyte abnormality, and stroke. EKG will be obtained to assess for cardiac dysrhythmia and cardiac ischemia. Chest x-ray will be obtained to assess for pneumonia and bronchitis. CBC will be obtained to assess for leukocytosis and anemia. Comprehensive metabolic profile will be obtained to assess for hepatic function, renal function, and electrolyte abnormality. High-sensitivity troponin will be obtained to assess for cardiac ischemia. Serum lactate will be obtained to assess for sepsis. PT with INR and PTT will be obtained to assess for coagulopathy. Urinalysis will be obtained to assess for urinary tract infection and hematuria. COVID-19, influenza, and RSV PCR will be obtained to assess for viral illness. Blood cultures will be obtained to assess for sepsis. Urine culture will be obtained to assess for urinary tract infection. Lab Data Attestation: I reviewed the patient's lab results. Lab results narrative: CBC was reviewed. There is a mild anemia with a hemoglobin of 9.8 and hematocrit of 30.2. Platelets were slightly low at 131. Comprehensive metabolic profile was reviewed. Potassium was slightly elevated at 5.5. CO2 was low at 8.0. Anion gap was elevated at 16. BUN was elevated at 144 and creatinine was 6.28. These are increased from previous results. High- sensitivity troponin was reviewed and was mildly elevated at 238. Serum lactate was reviewed and was normal at 0.6. COVID-19 PCR was reviewed and was negative. Influenza PCR was reviewed and was negative for influenza A and influenza B. RSV PCR was reviewed and was negative. Urinalysis was reviewed. Leukocyte esterase was 500. There were greater than 100 white blood cells. There is 3+ bacteria. Labs: Laboratory Results - last 24 hr 11/08/24 11/08/24 11/08/24 10:12 10:18 13:10 WBC 7.6 RBC 3.34 L Hgb 9.8 L Hct 30.2 L MCV 90.4 MCH 29.3 MCHC 32.5 RDW Std Deviation 49.5 H RDW Coeff of Adamaris 15.0 H Plt Count 131 L MPV 11.0 Immature Gran % (Auto) 0.300 Neut % (Auto) 70.2 H Lymph % (Auto) 19.0 Hughes % (Auto) 9.7 Eos % (Auto) 0.7 Baso % (Auto) 0.1 Absolute Neuts (auto) 5.4 Absolute Lymphs (auto) 1.45 Nucleated RBC % 0 PT 19.9 H INR 1.7 APTT 41.8 H Sodium 134 L Potassium 5.5 H Chloride 111 H Carbon Dioxide 8.0 L* Anion Gap 16 H BUN 144 H* Creatinine 6.28 H Est GFR (MDRD) Af Amer 12 L Est GFR (MDRD) Non-Af 10 L BUN/Creatinine Ratio 22.9 H Glucose 97 Lactic Acid 0.6 Calcium 9.2 Total Bilirubin 0.50 AST 9 L ALT 13 L Alkaline Phosphatase 97 Troponin I High Sens 238 H* Total Protein 6.6 Albumin 3.1 L Globulin 3.5 Albumin/Globulin Ratio 0.9 Urine Color Yellow Urine Clarity Cloudy Urine pH 5.0 Ur Specific [place] 1.020 Urine Protein 500 H Urine Glucose (UA) Normal Urine Ketones 15 H Urine Occult Blood 50 H Urine Nitrite Negative Urine Bilirubin Negative Urine Urobilinogen Normal Ur Leukocyte Esterase 500 H Urine RBC 5-10 SEEN Urine WBC >100 SEEN Ur Squamous Epith Cells 0 SEEN Amorphous Sediment 1+ Urine Bacteria 3+ Hyaline Casts 0-5 SEEN Urine Mucus 0 SEEN POC Glucose 11/08/24 14:22 WBC RBC Hgb Hct MCV MCH MCHC RDW Std Deviation RDW Coeff of Adamaris Plt Count MPV Immature Gran % (Auto) Neut % (Auto) Lymph % (Auto) Hughes % (Auto) Eos % (Auto) Baso % (Auto) Absolute Neuts (auto) Absolute Lymphs (auto) Nucleated RBC % PT INR APTT Sodium Potassium Chloride Carbon Dioxide Anion Gap BUN Creatinine Est GFR (MDRD) Af Amer Est GFR (MDRD) Non-Af BUN/Creatinine Ratio Glucose Lactic Acid Calcium Total Bilirubin AST ALT Alkaline Phosphatase Troponin I High Sens Total Protein Albumin Globulin Albumin/Globulin Ratio Urine Color Urine Clarity Urine pH Ur Specific [place] Urine Protein Urine Glucose (UA) Urine Ketones Urine Occult Blood Urine Nitrite Urine Bilirubin Urine Urobilinogen Ur Leukocyte Esterase Urine RBC Urine WBC Ur Squamous Epith Cells Amorphous Sediment Urine Bacteria Hyaline Casts Urine Mucus POC Glucose 190 H ABG Data Interpretation: Venous blood gas was obtained. pH was 7.067, pCO2 was 24.5, pO2 was 69.9, bicarb was 7.1, and oxygen saturation was 85.7% on room air. ABG results: ABG 11/08/24 14:24 Specimen Type LAWSNO Sample Site Not entered VBG pH 7.07 L* VBG pO2 70 H VBG HCO3 7 L VBG Total CO2 8 L VBG O2 Sat (Calc) 86 H VBG Base Excess -23 L POC Mix VBG pCO2 Pt Tmp 24.5 L O2 Delivery Device Not entered Crit Call To/Read Back Yes Blood Gas Notified Whom ES Blood Gas Notified Time 14:26:24 Radiography Chest X-Ray - ED: 1 View, Read by ED Physician, Read by Radiologist, Right Infiltrate and Left Infiltrate Diagnostic Testing: Clinical Impression(s) from Imaging Studies Chest X-Ray 11/08/24 10:09 IMPRESSION: Improved but persistent minimal bibasilar airspace opacities with possible underlying small pleural effusions. Reading Location: [facility] Brain CT 11/08/24 10:41 IMPRESSION: No CT evidence of acute intracranial pathology. Reading Location: [facility] Abdomen/Pelvis CT 11/08/24 13:46 IMPRESSION: Submucosal edema and thickening of a significant portion of the ascending colon. Colitis can have this appearance. This appears new compared to prior exams. No bowel dilation. Nonspecific possible collapsed bowel versus free fluid anterior inferior intra- abdominal cavity most conspicuous axial CT series images 122-126. Clinical and imaging surveillance is advised. Bibasilar opacities with a prominent pleural calcification at the left base unchanged from priors. One or more dose reduction techniques were used (e.g., Automated exposure control, adjustment of the mA and/or kV according to patient size, use of iterative reconstruction technique). [facility] was [facility]. There is no acute intracranial abnormality. This was interpreted by the radiologist and was also independently reviewed by myself. Portable 1 view chest x-ray was obtained. On my independent interpretation, lung pierson show bibasilar airspace opacities. These are improved from previous x-ray. There is normal cardiac silhouette. Bony thorax is normal. Radiologist also interpreted the x-ray and agrees. CT scan of the abdomen pelvis was obtained. There is no evidence of obstructive uropathy. There is submucosal edema and thickening of the ascending colon. There is no evidence of bowel obstruction or perforation. This was interpreted by the radiologist was also independently reviewed by myself. EKG Initial EKG: Attestation: I personally reviewed and interpreted this EKG as follows: Interpretation: Sinus Rhythm (66), RBBB, LAFB and Non-Specific ST Changes Comments: EKG was obtained. On my independent interpretation, it shows a normal sinus rhythm with a rate of 66. AK interval was normal at 132 ms. QRS interval was prolonged at 156 ms. QTc interval was 486 ms. There is left axis deviation at -71. There is a right bundle branch block pattern noted. There is a left anterior fascicular block noted. There are nonspecific ST-T wave changes noted. Prior EKG tracings: available for review Prior: Unchanged (07/25/2024) Treatment and Re-Evaluation :: Patient was given IV fluids. Patient was started on Zosyn and vancomycin. Patient was given aspirin for the elevated troponin. Patient was given calcium, insulin, and glucose. Since the patient's renal transplant was performed at [facility] and the patient has been transferred there in the past, we will contact [facility] for transfer. Case was discussed with the hospitalist, transplant service, and coordinate measuring machine operator at [facility]. They do not have any beds available at this time. They recommended having the patient dialyzed here and the patient was put on the wait list for transfer. Dialysis not available here today. [facility] transfer line was contacted again. Case was discussed with hospitalist and lithograph designer at [facility]. Patient will be transferred there for dialysis until a bed becomes available at [facility]. Patient was accepted to the service of Dr. Barahona. Patient and family understand and are agreeable with the plan. All questions were answered. Critical Care Time Critical Care Time: Yes Critical care time (excluding procedures): 30-74 minutes (47), Including time spent:, Discussing w/Patient &/or Family/Bladder Cleaner, Discussing w/Consultants, Arranging Admission or Transfer and Performing Direct Patient Care at Bedside Discharge Plan Triage Chief Complaint: Nausea/Vomiting/Diarrhea ED Provider: Ganga Hayden Dx/Rx/DC Orders Clinical Impression: Acute kidney injury, History of renal transplant, Elevated troponin, Metabolic acidosis, Urinary tract infection, Uremia, Acute confusion Prescriptions: No Action doxazosin [Cardura] 8 MG tablet 4 mg PO DAILY atorvastatin 80 MG tablet 80 mg PO DAILY Patient Comments: acetaminophen 500 MG tablet 1,000 mg PO Q8 PRN (Reason: fever or pain) albuterol sulfate 1 INHALER inhaler 1 - 2 puff inhalation Q4H PRN PRN (Reason: Shortness Of Breath) Qty: 1 2RF ipratropium-albuterol 0.5 mg-3 mg(2.5 mg base)/3 mL solution for nebulization 3 ml inhalation Q6H PRN PRN (Reason: wheezing) prednisone 5 mg tablet 5 mg PO DAILY Envarsus XR 0.75 mg tablet extended release 24 hr 1.5 mg PO DAILY Patient Comments: [NO ORIGINAL SIG] carvedilol 6.25 mg tablet 6.25 mg PO BID cholecalciferol (vitamin D3) 50 mcg (2,000 unit) capsule 100 mcg PO DAILY Patient Comments: TAKE 2 CAPSULES (100 MCG) BY MOUTH EARLY IN THE MORNING.. isosorbide mononitrate 30 mg tablet extended release 24 hr 60 mg PO DAILY clopidogrel 75 mg tablet 75 mg PO DAILY losartan 25 mg tablet 25 mg PO DAILY pantoprazole 40 mg tablet,delayed release (DR/EC) 40 mg PO DAILY Patient Comments: PLEASE SEE ATTACHED FOR DETAILED DIRECTIONS apixaban 5 mg tablet 5 mg PO BID Primary Care Provider: Diana Tate Referrals: Diana Tate PA [Primary Care Provider] - Print Language: Croatian Disposition Disposition: Acute Care Hospital Discharge Location: Other Acute Care Hospital
[2024-11-08 10:37] LABS: Absolute Lymphocyte Count 1.45 X10^3/uL (0.83-4.51); Absolute Neutrophil Count 5.4 X10^3/uL (2.0-7.7); Basophil# 0.01 X10^3/uL; Basophil% 0.1 % (0-1); Eosinophil# 0.05 X10^3/uL; Eosinophils% 0.7 % (0-5); Hematocrit 30.2 % (40-54); Hemoglobin 9.8 g/dL (13.0-16.5); Lymphocyte # 1.45 X10^3/ul (0.83-4.51); Mean Corp Hgb Conc 32.5 g/dL (32-36); Mean Corpuscular Hgb 29.3 pg (27.0-32.0); Mean Corpuscular Volume 90.4 fL (80-94); Monocyte# 0.74 X10^3/uL; Monocyte% 9.7 % (0-10); NRBC Flagged by Analyzer 0 % (0-5); Neutrophil # 5.36 X10^3/uL (2.7-7.7); Neutrophil % 70.2 % (47-70); Platelet Count 131 K/mm3 (150-450); RBC Distribution Width SD 49.5 fl (35.1-43.9); Red Blood Count 3.34 M/mm3 (4.6-6.2); White Blood Count 7.6 K/mm3 (4.4-11.0)
--- NOTE | 2024-11-08 10:41 | CT_ITS ---
EXAM: BRAIN/HEAD WITHOUT CONTRAST CLINICAL HISTORY: Confusion COMPARISON: None. TECHNIQUE: Noncontrast images of the head with multiplanar reconstructions. Dose reduction techniques were used including intermediate exposure control (AEC),iterative reconstruction technique, and/or mA and/or KV dose adjustments based on patient's size. FINDINGS: CT HEAD FINDINGS: No acute intracranial hemorrhage, mass, mass effect, midline shift or pathologic extra-axial fluid collection. No hydrocephalus. Age- appropriate cerebral volume and white matter. Visualized paranasal sinuses and mastoid air cells are clear. The calvarium is grossly intact. CT/Brain/Head without Contrast IMPRESSION: No CT evidence of acute intracranial pathology. Reading Location: [facility]
[2024-11-08 10:49] LABS: International Normalized Ratio 1.7; Prothrombin Time (Protime)PT. 19.9 SECONDS (11.7-14.9)
[2024-11-08 10:50] LABS: Partial Thromboplast Time 41.8 Seconds (24.1-36.2)
[2024-11-08 11:01] LABS: Lactic Acid 0.6 mmol/L (0.4-1.9)
[2024-11-08 11:07] LABS: ALB/GLOB Ratio 0.9 RATIO (0.9-2.4); AST(SGOT) 9 U/L (15-37); Alanine Aminotransfer ALT/SGPT 13 U/L (16-61); Albumin, Serum 3.1 g/dL (3.2-5.0); Alkaline Phosphatase 97 U/L (45-117); Anion Gap 16 (5-15); BUN 144 mg/dL (7-18); BUN/Creat Ratio 22.9 RATIO (10-20); Calcium,Total 9.2 mg/dL (8.5-10.1); Chloride 111 mmol/L (98-107); Creatinine, Serum 6.28 mg/dL (0.70-1.30); EST Glomerular Filtration Rate 10 mL/min (>60); Est Glom Filt Rate - Afr Amer 12 mL/min (>60); Globulin 3.5 g/dL (2.2-4.2); Glucose 97 mg/dL (74-106); Potassium 5.5 mmol/L (3.5-5.1); Protein, Total 6.6 g/dL (6.4-8.2); Sodium Level 134 mmol/L (136-145); Troponin-I HS 238 pg/mL (3.0-78.0)
[2024-11-08] MEDS: Aspirin 81 MG TAB.CHEW 324 MG PO (12:16)
[2024-11-08] MEDS: 0.9% Normal Saline (1000mL) 1,000 ML 1000 ML IV ×2 (12:16→13:30)
[2024-11-08] MEDS: Piperacil/Tazobactam 4.5 GM in 0.9% Normal Saline (100mL MB+) 100 ML IV (12:16)
[2024-11-08 13:18] LABS: Mucous, Urine 0 SEEN /hpf (<or=2+); Squamous Epithelial Cells - UA 0 SEEN /hpf (0-5)
[2024-11-08] MEDS: Vancomycin HCl 1,500 MG in 0.9% Normal Saline (500mL Bag) 500 ML 250 MG IV (13:29)
[2024-11-08 13:32] LABS: Color, Urine Yellow (Yellow); Glucose, Dipstick Normal (Normal); Ketone-Dipstick 15 mg/dl (Negative); Leukocyte Esterase-Dipstick 500 /ul (Negative); Nitrite-Dipstick Negative (Negative); Occult Blood-Urine 50 /ul (Negative); Protein-Dipstick 500 mg/dl (Negative); Urine Bilirubin Dipstick Negative (Negative); Urine Clarity Cloudy (Clear); Urine Urobilinogen Normal (Normal)
[2024-11-08] MEDS: Ondansetron 4 MG/2 ML Vial IV (13:33)
[2024-11-08 13:38] LABS: White Blood Cells >100 SEEN /hpf (0-5)
[2024-11-08 13:39] LABS: Amorphous Sediment 1+; Bacteria 3+ /hpf (None Seen); Red Blood Cells-Urine 5-10 SEEN /hpf (0-5)
[2024-11-08 13:40] LABS: Hyaline Cast 0-5 SEEN /lpf (0-5)
[2024-11-08] MEDS: Calcium Gluconate IV 3 GM in Syringe 1 EACH IV (13:44)
[2024-11-08] MEDS: Insulin Lispro 10 UNIT in Syringe 0 ML 6 UNIT IV (13:44)
[2024-11-08] MEDS: Dextrose 10%-Water 250 ML 999 ML IV (13:45)
--- NOTE | 2024-11-08 13:46 | CT_ITS ---
PROCEDURE: ABDOMEN/PELVIS WITHOUT CONT REASON FOR EXAM: Pain TECHNIQUE: Abdomen and pelvis CT with intravenous contrast. COMPARISON: Multiple priors most recently 07/25/2024 FINDINGS: Lung bases: Bibasilar opacities with a prominent pleural calcification at the left base unchanged from priors Liver: Unremarkable. Gallbladder: Sludge versus tiny gallstones again seen. Spleen: Unremarkable. Pancreas: Unremarkable. Adrenals: Unremarkable. Kidneys: Left lower quadrant renal transplant.. Bladder: [place] in place. Reproductive Organs: Unremarkable. Bowel: Submucosal edema and thickening of a significant portion of the ascending colon. Colitis can have this appearance. This appears new compared to prior exams. No bowel dilation. Nonspecific possible collapsed bowel versus free fluid anterior inferior intra-abdominal cavity most conspicuous axial CT series images 122-126. Clinical and imaging surveillance is advised. Lymph nodes: No suspicious lymph node enlargement. Vasculature: Severe vascular calcifications are seen. Bones: Multilevel degenerative changes. Bone loss.. CT/Abdomen/Pelvis without Cont IMPRESSION: Submucosal edema and thickening of a significant portion of the ascending colon . Colitis can have this appearance. This appears new compared to prior exams. No bowel dilation. Nonspecific possible collapsed bowel versus free fluid anterior inferior intra- abdominal cavity most conspicuous axial CT series images 122-126. Clinical and imaging surveillance is advised. Bibasilar opacities with a prominent pleural calcification at the left base unc hanged from priors. One or more dose reduction techniques were used (e.g., Automated exposure contr ol, adjustment of the mA and/or kV according to patient size, use of iterative reconstruction technique). Reading Location: [facility]
[2024-11-08 14:29] LABS: Blood Gas Specimen Type VEN; O2 Delivery Device Not entered; SITE Not entered; VBG BASE EXCESS -23 mmol/L (-1.0-3.5); VBG Bicarbonate 7 mmol/L (22-26); VBG PO2 70 mmHg (25-40); VBG SO2 86 % (50-70); VBG TCO2 8 mmol/L (23-33); VBG pCO2 24.5 mmHg (41-51); VBG pH 7.07 (7.32-7.42)
[2024-11-08 14:40] LABS: Bedside Glucose 190 mg/dL (74-106)
[2024-11-08] MEDS: LORazepam 2 MG/ML Syringe 1 MG IV (14:50)
--- NOTE | 2024-11-08 15:00 | ED.RN ---
1500 Rn took over patients care. RN informed JENNIFER cordova patients sepsis screen behind 3 hours and drip was not hung. Kirti explained to this RN she only has 2 access sites at this time. Dextrose drip 3 hours behind.
[2024-11-08] MEDS: Sodium Bicarbonate 150 MEQ in Dextrose 5%-Water (1000mL Bag) 1,000 ML 250 MEQ IV (15:04)
--- NOTE | 2024-11-08 15:34 | ED.RN ---
ACCEPTED AT [place] [id number] FLORIAN
[2024-11-08] MEDS: Dextrose 10%-Water 250 ML 40 ML IV (16:46)
[2024-11-08 17:16] LABS: Bedside Glucose 164 mg/dL (74-106)
== END 2024-11-08 18:14 | disposition short-term general hospital (02) ==
PROVIDERS: Emergency Provider Emergency Medicine; PCP Physician Assistant; Visit Provider Emergency Medicine
DX: N17.9 Acute kidney failure, unspecified (principal); N18.6 End stage renal disease; J44.9 Chronic obstructive pulmonary disease, unspecified; R41.0 Disorientation, unspecified; N39.0 Urinary tract infection, site not specified; R68.83 Chills (without fever); E87.5 Hyperkalemia; E87.20 Acidosis, unspecified; Z94.0 Kidney transplant status; R11.2 Nausea with vomiting, unspecified; R19.7 Diarrhea, unspecified; R51.9 Headache, unspecified; R79.89 Other specified abnormal findings of blood chemistry; Z95.1 Presence of aortocoronary bypass graft; Z11.52 Encounter for screening for COVID-19; Z79.01 Long term (current) use of anticoagulants; Z79.02 Long term (current) use of antithrombotics/antiplatelets; Z79.899 Other long term (current) drug therapy; Z87.891 Personal history of nicotine dependence
CPT/HCPCS: 70450; 71045; 74176; 80053; 81001; 82803; 82962; 83605; 84484; 85025; 85610; 85730; 87040; 87077; 87086; 87088; 87186; 87631; 93005; 96361; 96365; 96366; 96367; 96375; 99285; A4216; J0612; J2405

== ENCOUNTER 2024-12-16 07:20 | Inpatient (IN) | payer OTHER, SELFPAY ==
[2024-12-16] VITALS (39 sets, daily range): BP systolic 105–170; BP diastolic 52–123; PULSE 64–108; RESP 13–23; TEMP 36.7–36.8; O2SAT 96–99; BMI 22.1; BMI 21.5
--- NOTE | 2024-12-16 07:33 | EKG12_ITS ---
Test Reason : Blood Pressure : */* mmHG Vent. Rate : 81 BPM Atrial Rate : 81 BPM P-R Int : 136 ms QRS Dur : 140 ms QT Int : 390 ms P-R-T Axes : 68 -76 11 degrees QTcB Int : 453 ms Normal sinus rhythm Right bundle branch block Left anterior fascicular block Bifascicular block Abnormal ECG Confirmed by KYRA BURT, JOESPH ([id number]), editor house organ EDSON PEREIRA ([id number]) on 12/21/2024 11:07:30 AM Referred By: Confirmed By: JOESPH RAE MD
--- NOTE | 2024-12-16 07:51 | ED.VIS.CHEST ---
HPI History of Present Illness Chief Complaint: Chest Pain Informant: patient Narrative Narrative: 54-year-old male presenting to the emergency room with the chief complaint of chest pain. Patient has an extensive complicated medical history which includes CABG and renal transplant in 1991 and in 2009. He states he sees [facility] for transplant care in [facility] for cardiology. He states he has had multiple admissions last year and this year for sepsis. He notes he had a heart catheterization last May and April timeframe. He reports that since Saturday he has had exertional chest pain in the center of his chest that occasionally goes into his back. Associated with the chest pain is sweating decreased exercise tolerance and palpitations. He notes the palpitations which sometimes includes rapid heart rate have been going on for years. He notes that he is on Eliquis. 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 He has occluded right iliac and is status post left femoral bypass in 2018. He is on immunosuppressive medicine. He also carries a diagnosis of COPD, VIC, chronic anemia, neurogenic bladder with chronic indwelling [place] catheter and colonization, hyperparathyroidism, GERD, and CHF. [facility] Medical History PVD (peripheral vascular disease) End stage renal disease group home systemic steroid user Pulmonary embolism Neurogenic bladder Hyperparathyroidism Hyperhomocystinemia GERD (gastroesophageal reflux disease) DVT (deep venous thrombosis) Depression Claudication VIC (obstructive sleep apnea) Chronic obstructive pulmonary disease (COPD) Chronic kidney disease, stage 3 Home Medications ?Medication ?Instructions ?Recorded ?Last Taken ?Type doxazosin 8 mg tablet (Cardura) 4 mg PO DAILY BLADDER 02/21/14 07/21/19 History atorvastatin 80 mg tablet 80 mg PO DAILY cholesterol 12/30/17 07/21/19 History acetaminophen 500 mg tablet 1,000 mg PO Q8 PRN fever or pain 11/15/23 Unknown History albuterol sulfate 90 mcg/actuation 1 - 2 puff inhalation Q4H PRN PRN 11/20/23 Unknown Rx aerosol inhaler Shortness Of Breath ##1 ipratropium 0.5 mg-albuterol 3 mg 3 ml inhalation Q6H PRN PRN 05/19/24 Unknown History (2.5 mg base)/3 mL nebulization wheezing soln prednisone 5 mg tablet 5 mg PO DAILY 05/19/24 Unknown History apixaban 5 mg tablet 5 mg PO BID 06/13/24 Unknown History carvedilol 6.25 mg tablet 6.25 mg PO BID 11/08/24 Unknown History cholecalciferol (vitamin D3) 50 100 mcg PO DAILY 11/08/24 Unknown History mcg (2,000 unit) capsule clopidogrel 75 mg tablet 75 mg PO DAILY 11/08/24 Unknown History isosorbide mononitrate 30 mg 60 mg PO DAILY 11/08/24 Unknown History tablet,extended release 24 hr losartan 25 mg tablet 25 mg PO DAILY 11/08/24 Unknown History pantoprazole 40 mg tablet,delayed 40 mg PO DAILY 11/08/24 Unknown History release tacrolimus 0.75 mg tablet,extended 1.5 mg PO DAILY 11/08/24 Unknown History release 24 hr (Envarsus XR) Allergy/AdvReac Type Severity Reaction Status Date / Time propoxyphene napsylate (From Allergy Hives Verified 12/16/24 07:23 Darvocet-N) venom-honey bee (bee venom Allergy Hives Verified 12/16/24 07:23 (honey bee)) Family History Father Arthritis Cancer Lung cancer, 1990 CAD (coronary artery disease) Mother CAD (coronary artery disease) Diet 2012 Surgical History S/P femoral-femoral bypass surgery History of quadruple bypass S/P pericardial window creation (~1991) History of lung biopsy (~2007) Renal transplant recipient History of renal transplant Social History household members: spouse housing: house Smoking Status: Former smoker pack-years: 19 Tobacco: How many years used: 15 alcohol intake: never substance use type: does not use ROS ROS ED ROS Narrative Episodic exertional sweating palpitations and chest pain Constitutional Constitutional ED: Denies chills, fever(s) or weight loss Eyes Eyes: Denies change in vision or diplopia ENT ENT ED: Denies ear pain, rhinorrhea or sore throat Cardiovascular Cardiovascular: Reports chest pain, palpitations and racing heartbeat; Denies orthopnea Respiratory/Chest Respiratory/Chest: Denies cough, dyspnea or orthopnea Gastrointestinal Gastrointestinal: Denies abdominal pain, diarrhea, nausea or vomiting Genitourinary Genitourinary ED: Denies dysuria, hematuria or urinary frequency Musculoskeletal Musculoskeletal: Denies arthralgias or myalgias Integumentary Denies abscess or rash Neurologic Neurologic: Denies headache(s) or weakness Psychiatric Psychiatric: Denies anxiety, depression, suicidal ideation or suicidal thoughts Endocrine Endocrinology: Denies polydipsia, polyphagia or polyuria Allergic/Immunologic Allergic/Immunologic ED: Denies mouth swelling, tongue swelling or urticaria EXAM Physical Exam Const Vital Signs: 12/16/24 07:21 12/16/24 07:59 12/16/24 08:36 Temperature 98.2 F Temperature Source Temporal Pulse Rate 82 64 Respiratory Rate 16 16 Respiratory Effort Normal Non-Labored Respiratory Pattern Normal Blood Pressure 170/123 H 151/61 H Blood Pressure Mean 138 91 Pulse Ox 99 99 Oxygen Delivery Method Room Air Room Air Positive well nourished and well developed General Appearance ED: well developed HEENT Reports normocephalic, head/scalp atraumatic and moist mucous membranes Eyes PERRL and EOMs intact bilaterally Neck no lymphadenopathy, supple and no JVD Resp normal respiratory effort and clear to auscultation bilaterally Cardio regular rate, regular rhythm and no murmurs GI normal to inspection, nondistended, normoactive bowel sounds and non-tender Palpation: soft Back/Spine no CVA tenderness and normal ROM Extremity Extremity Narrative: Chronic bruising appearance of the upper extremities General Extremety ED: Yes edema General Extremity: edema bilateral lower extremity Details: mild Neuro oriented x3 and CN's II-XII intact bilaterally Sensorium / Orientation: alert Motor Exam: strength 5/5 throughout Psych mental status grossly normal Mood & Affect: Negative for depressed or tearful Skin no rashes or lesions noted and no wounds MDM MDM MDM Narrative Medical decision making narrative: Differential diagnosis includes but not limited to acute coronary syndrome unstable angina pulmonary embolism hypertensive urgency/emergency acute kidney injury acute rejection sepsis Patient's white count 6.1 hemoglobin 9.4 platelet count of 77. Creatinine 2.43 with a BUN of 40 potassium 5.5 troponin T high-sensitivity is 49. My independent interpretation of the chest x-ray is chronic changes no acute findings. EKG is nonischemic and shows a sinus rhythm with bifascicular block at a rate of 66 bpm. The patient's blood pressure has come down significantly without treatment. Currently 139/65. given the patient's comorbidities and complicated history it is felt that the patient would be best served at tertiary care facility. He currently is seeing [facility] cardiology locally. He would prefer to go to the clinic for his cardiac care. We will reach out to the clinic to try to find acceptance. Most [facility] hospitals are at or near capacity. History & Record Review Discussion w/independent historian: Patient Additional record(s) reviewed:: Prior inpatient record, Prior ED visit and Prior labs Lab Data Attestation: I reviewed the patient's lab results. Labs: Laboratory Results - last 24 hr 12/16/24 08:35 WBC 6.1 RBC 3.14 L Hgb 9.4 L Hct 29.2 L MCV 93.0 MCH 29.9 MCHC 32.2 RDW Std Deviation 49.7 H RDW Coeff of Adamaris 14.6 Plt Count 77 L MPV 10.6 Immature Gran % (Auto) 0.300 Neut % (Auto) 51.0 Lymph % (Auto) 35.6 [place] % (Auto) 9.8 Eos % (Auto) 2.8 Baso % (Auto) 0.5 Absolute Neuts (auto) 3.1 Absolute Lymphs (auto) 2.17 Nucleated RBC % 0 Sodium 137 Potassium 5.5 H Chloride 108 Carbon Dioxide 19.1 L Anion Gap 9 BUN 40 H Creatinine 2.43 H Estim Creat Clear Calc 29.26 L Est GFR (MDRD) Non-Af 31 L BUN/Creatinine Ratio 16.3 Glucose 82 Calcium 10.7 Troponin T High Sens 49 H Radiography Diagnostic Testing: Clinical Impression(s) from Imaging Studies Chest X-Ray 12/16/24 08:50 IMPRESSION: Hyperinflation. Persistent infiltration and/or mass lesion in the left lower lobe. Blunting of both costophrenic angles. Prior midline sternotomy. Reading Location: [facility] EKG Initial EKG: Attestation: I personally reviewed and interpreted this EKG as follows: Comments: Normal sinus rhythm ventricular rate of 81 bpm. Right bundle branch block and left anterior fascicular block noted. This appears grossly unchanged from 08 November 2024 Prior EKG tracings: available for review Prior: Unchanged Management Discussion w/another healthcare provider: Change Lead Discharge Plan Triage Chief Complaint: Chest Pain ED Provider: Abraham Martinez Dx/Rx/DC Orders Clinical Impression: Exertional chest pain, Hypertension, Troponin I above reference range, PVD (peripheral vascular disease), Thrombocytopenia, History of renal transplant, Immunosuppressed status Prescriptions: No Action doxazosin [Cardura] 8 MG tablet 4 mg PO DAILY atorvastatin 80 MG tablet 80 mg PO DAILY Patient Comments: acetaminophen 500 MG tablet 1,000 mg PO Q8 PRN (Reason: fever or pain) albuterol sulfate 1 INHALER inhaler 1 - 2 puff inhalation Q4H PRN PRN (Reason: Shortness Of Breath) Qty: 1 2RF ipratropium-albuterol 0.5 mg-3 mg(2.5 mg base)/3 mL solution for nebulization 3 ml inhalation Q6H PRN PRN (Reason: wheezing) prednisone 5 mg tablet 5 mg PO DAILY Envarsus XR 0.75 mg tablet extended release 24 hr 1.5 mg PO DAILY Patient Comments: [NO ORIGINAL SIG] carvedilol 6.25 mg tablet 6.25 mg PO BID cholecalciferol (vitamin D3) 50 mcg (2,000 unit) capsule 100 mcg PO DAILY Patient Comments: TAKE 2 CAPSULES (100 MCG) BY MOUTH EARLY IN THE MORNING.. isosorbide mononitrate 30 mg tablet extended release 24 hr 60 mg PO DAILY clopidogrel 75 mg tablet 75 mg PO DAILY losartan 25 mg tablet 25 mg PO DAILY pantoprazole 40 mg tablet,delayed release (DR/EC) 40 mg PO DAILY Patient Comments: PLEASE SEE ATTACHED FOR DETAILED DIRECTIONS apixaban 5 mg tablet 5 mg PO BID Primary Care Provider: Melissa Judd Referrals: Diana Tate PA [Non-Staff] - Print Language: Latvian Disposition Disposition: Acute Care Hospital
--- NOTE | 2024-12-16 08:00 | ED.RN ---
Pt has been stuck multiple times. 3 times by this nurse and 2 times by Melina Sultana RN. Candie will be down to try ultrasound.
--- NOTE | 2024-12-16 08:40 | EKG12_ITS ---
Test Reason : CP Blood Pressure : */* mmHG Vent. Rate : 66 BPM Atrial Rate : 66 BPM P-R Int : 144 ms QRS Dur : 142 ms QT Int : 422 ms P-R-T Axes : -8 -70 -46 degrees QTcB Int : 442 ms Normal sinus rhythm Right bundle branch block Left anterior fascicular block Bifascicular block T wave abnormality, consider inferior ischemia Abnormal ECG Confirmed by KYRA BURT, JOESPH ([id number]), newspaper or periodical editor EDSON PEREIRA ([id number]) on 12/21/2024 11:11:12 AM Referred By: DAKSHA Confirmed By: JOESPH RAE MD
[2024-12-16 08:43] LABS: Absolute Lymphocyte Count 2.17 X10^3/uL (0.83-4.51); Absolute Neutrophil Count 3.1 X10^3/uL (2.0-7.7); Basophil# 0.03 X10^3/uL; Basophil% 0.5 % (0-1); Eosinophil# 0.17 X10^3/uL; Eosinophils% 2.8 % (0-5); Hematocrit 29.2 % (40-54); Hemoglobin 9.4 g/dL (13.0-16.5); Lymphocyte # 2.17 X10^3/ul (0.83-4.51); Lymphocyte % 35.6 % (19-41); Mean Corp Hgb Conc 32.2 g/dL (32-36); Mean Corpuscular Hgb 29.9 pg (27.0-32.0); Mean Platelet Vol. 10.6 fl (6.2-12.0); Monocyte% 9.8 % (0-10); NRBC Flagged by Analyzer 0 % (0-5); Neutrophil # 3.11 X10^3/uL (2.7-7.7); POSITIVE COUNT YES; Platelet Count 77 K/mm3 (150-450); RBC Distribution Width CV 14.6 % (11.6-14.6); RBC Distribution Width SD 49.7 fl (35.1-43.9); Red Blood Count 3.14 M/mm3 (4.6-6.2); White Blood Count 6.1 K/mm3 (4.4-11.0)
--- NOTE | 2024-12-16 08:50 | RAD_ITS ---
PROCEDURE: CHEST 1 VIEW (PORTABLE) REASON FOR EXAM: 2 day history of sternal chest pain. TECHNIQUE: Frontal view of the chest. COMPARISON: Comparison is made with prior study dated November 08, 2024. FINDINGS: EKG electrodes are seen. Hyperinflation. Persistent infiltrate in the left lower lobe. Underlying mass lesion can not be excluded. Blunting of the costophrenic angles. Prior midline sternotomy. Borderline cardiomegaly. RAD/Chest 1 View (Portable) IMPRESSION: Hyperinflation. Persistent infiltration and/or mass lesion in the left lower lobe. Blunting of both costophrenic angles. Prior midline sternotomy. Reading Location: [facility]
[2024-12-16 08:59] LABS: Anion Gap 9 (5-15); BUN 40 mg/dL (4-19); BUN/Creat Ratio 16.3 RATIO (10-20); Calcium,Total 10.7 mg/dL (7.6-11.0); Carbon Dioxide 19.1 mmol/L (21.0-32.0); Chloride 108 mmol/L (98-108); Creatinine, Serum 2.43 mg/dL (0.70-1.20); EST Glomerular Filtration Rate 31 (>60); Estimated Creatinine Clearance 29.26 ml/min (50-250); Glucose 82 mg/dL (70-99); Potassium 5.5 mmol/L (3.3-5.1); Sodium Level 137 mmol/L (133-145); Troponin T High Sensitivity 49 ng/L (<=22)
[2024-12-16 11:23] LABS: Troponin T High Sens 2 HR 56 ng/L (<=22)
[2024-12-16 14:29] LABS: Troponin T High Sens 4 HR 59 ng/L (<=22)
--- NOTE | 2024-12-16 21:30 | CT_ITS ---
PROCEDURE: CT chest without IV contrast REASON FOR EXAM: CHEST MASS TECHNIQUE: Chest CT without contrast. COMPARISON: 06/19/2024 FINDINGS: Mild cardiomegaly. Heavy three-vessel coronary artery calcifications. No significant pericardial effusion. Status post CABG. Calcified nonaneurysmal thoracic aorta. Normal caliber pulmonary arteries. No bulky lymphadenopathy. No acute findings in the visualized upper abdomen. Superficial soft tissues are without acute abnormality. Central airways are patent. Pleural-parenchymal scarring and calcification along the posterior aspect of the left lower lobe. Some adjacent posterior pleural fat necrosis. No focal consolidation, pleural effusion or pneumothorax. Minimal scattered nodular and reticulonodular opacities in the right upper, right lower and left upper lobes. No dominant pulmonary mass. No acute osseous abnormality. Mild dextroscoliosis. CT/Chest without Contrast IMPRESSION: 1. No suspicious pulmonary mass. 2. Pleural-parenchymal scarring and calcifications along the posterior left low er lobe. 3. Minimal scattered nodular and reticulonodular opacities in the bilateral upp er and right lower lobes which may relate to an infectious/inflammatory process. 4. Cardiomegaly and coronary artery disease. One or more dose reduction techniques were used (e.g., Automated exposure contr ol, adjustment of the mA and/or kV according to patient size, use of iterative reconstruction technique). Reading Location: [facility]
--- NOTE | 2024-12-16 21:38 | PCM.HP.STD ---
HPI - General General Date of Admission: 12/16/24 Date of Service: 12/16/24 Chief Complaint: chest pain HPI Narrative MARIAN BARROSO, is a 54 M with pmhx of CAD with prior CABG pt of [facility], ESRD now CKD III s/p renal transplant pt of , PVD, COPD, DVT/PE on eliquis, GERD, VIC not on CPAP, who presents to the ER with chest pain. This began about 3 days ago. Chest pain has been recurrent daily. It is midsternal with associated back pain, described as tightness, no radiation into the arm. This occurs with exertion and is alleviated by rest, and has some associated diaphoresis. In the ER he was found to have elevated troponin, EKG with RBBB and L anterior fasicular block, elevated potassium. Pts chest pain resolved spontaneously. ER physician attempted to transfer to the patients cardiology team at [facility], was accepted, however no bed was available so hospitalist was contacted for admission here. 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 Pulmonary embolism Neurogenic bladder Hyperparathyroidism Hyperhomocystinemia GERD (gastroesophageal reflux disease) DVT (deep venous thrombosis) Depression Claudication VIC (obstructive sleep apnea) Chronic obstructive pulmonary disease (COPD) Chronic kidney disease, stage 3 Home Medications ?Medication ?Instructions ?Recorded ?Last Taken ?Type atorvastatin 80 mg tablet 80 mg PO QHS cholesterol 12/30/17 07/21/19 History acetaminophen 500 mg tablet 1,000 mg PO Q8 PRN fever or pain 11/15/23 Unknown History albuterol sulfate 90 mcg/actuation 1 - 2 puff inhalation Q4H PRN PRN 11/20/23 Unknown Rx aerosol inhaler Shortness Of Breath ##1 ipratropium 0.5 mg-albuterol 3 mg 3 ml inhalation Q6H PRN PRN 05/19/24 Unknown History (2.5 mg base)/3 mL nebulization wheezing soln apixaban 5 mg tablet 5 mg PO BID 06/13/24 Unknown History carvedilol 6.25 mg tablet 6.25 mg PO BID 11/08/24 Unknown History cholecalciferol (vitamin D3) 50 100 mcg PO DAILY 11/08/24 Unknown History mcg (2,000 unit) capsule clopidogrel 75 mg tablet 75 mg PO DAILY 11/08/24 Unknown History pantoprazole 40 mg tablet,delayed 40 mg PO DAILY 11/08/24 Unknown History release tacrolimus 0.75 mg tablet,extended 1.5 mg PO DAILY 11/08/24 Unknown History release 24 hr (Envarsus XR) ciprofloxacin HCl 500 mg tablet 500 mg PO DAILY CHRONIC UTI 12/16/24 Unknown History doxazosin 4 mg tablet 8 mg PO QHS BLADDER 12/16/24 Unknown History guaifenesin 600 mg tablet, 600 mg PO BID PRN PRN cough 12/16/24 Unknown History extended release 12 hr (Mucus Relief ER) isosorbide mononitrate 60 mg 60 mg PO DAILY 12/16/24 Unknown History tablet,extended release 24 hr losartan 50 mg tablet 50 mg PO DAILY 12/16/24 Unknown History magnesium oxide 400 mg (241.3 mg 400 mg PO DAILY 12/16/24 Unknown History magnesium) tablet melatonin 5 mg tablet 5 mg PO QHS INSOMNIA 12/16/24 Unknown History prednisone 5 mg tablet 5 mg PO DAILY liver transplant 12/16/24 Unknown History Allergy/AdvReac Type Severity Reaction Status Date / Time propoxyphene napsylate (From Allergy Hives Verified 12/16/24 23:00 Darvocet-N) venom-honey bee (bee venom Allergy Hives Verified 12/16/24 23:00 (honey bee)) Family History Father Arthritis Cancer Lung cancer, 1990 CAD (coronary artery disease) Mother CAD (coronary artery disease) Diet 2012 Surgical History S/P femoral-femoral bypass surgery History of quadruple bypass S/P pericardial window creation (~1991) History of lung biopsy (~2007) Renal transplant recipient History of renal transplant Social History household members: spouse housing: house Smoking Status: Former smoker pack-years: 19 Tobacco: How many years used: 15 alcohol intake: never substance use type: does not use Vital Signs Vital Signs Vital Signs: 12/16/24 07:21 12/16/24 07:59 12/16/24 08:36 Temperature 98.2 F Temperature Source Temporal Pulse Rate 82 64 Respiratory Rate 16 16 Respiratory Effort Normal Non-Labored Respiratory Pattern Normal Blood Pressure 170/123 H 151/61 H Blood Pressure Mean 138 91 Pulse Ox 99 99 Oxygen Delivery Method Room Air Room Air 12/16/24 09:00 12/16/24 10:00 12/16/24 11:00 Temperature Temperature Source Pulse Rate 78 108 H 67 Respiratory Rate 20 H 18 19 H Respiratory Effort Respiratory Pattern Blood Pressure 144/69 H 143/100 H 142/67 H Blood Pressure Mean 94 114 88 Pulse Ox 96 97 Oxygen Delivery Method Room Air 12/16/24 12:00 12/16/24 13:00 12/16/24 14:00 Temperature Temperature Source Pulse Rate 66 71 73 Respiratory Rate 16 14 17 Respiratory Effort Respiratory Pattern Blood Pressure 147/62 H 142/67 H 161/85 H Blood Pressure Mean 86 88 105 Pulse Ox Oxygen Delivery Method 12/16/24 14:15 12/16/24 14:30 12/16/24 14:45 Temperature Temperature Source Pulse Rate 86 82 75 Respiratory Rate 16 23 H 17 Respiratory Effort Respiratory Pattern Blood Pressure 154/72 H 151/96 H 154/64 H Blood Pressure Mean 94 110 88 Pulse Ox Oxygen Delivery Method 12/16/24 15:00 12/16/24 15:15 12/16/24 15:30 Temperature Temperature Source Pulse Rate 74 76 82 Respiratory Rate 16 17 13 Respiratory Effort Respiratory Pattern Blood Pressure 141/52 H 130/56 H 135/95 H Blood Pressure Mean 78 75 106 Pulse Ox 98 97 Oxygen Delivery Method Room Air Room Air 12/16/24 15:32 12/16/24 15:45 12/16/24 16:00 Temperature Temperature Source Pulse Rate 74 85 Respiratory Rate 17 16 Respiratory Effort Normal Respiratory Pattern Blood Pressure 128/76 H 128/83 H Blood Pressure Mean 91 95 Pulse Ox 98 Oxygen Delivery Method Room Air 12/16/24 16:15 12/16/24 16:30 12/16/24 16:45 Temperature Temperature Source Pulse Rate 80 75 74 Respiratory Rate 21 H 19 H 16 Respiratory Effort Respiratory Pattern Blood Pressure 130/69 H 118/68 112/58 L Blood Pressure Mean 86 83 75 Pulse Ox 98 Oxygen Delivery Method Room Air 12/16/24 17:00 12/16/24 17:15 12/16/24 17:30 Temperature Temperature Source Pulse Rate 76 75 Respiratory Rate 16 20 H Respiratory Effort Respiratory Pattern Blood Pressure 125/67 H 141/74 H 126/53 H Blood Pressure Mean 85 92 68 Pulse Ox 97 Oxygen Delivery Method Room Air 12/16/24 17:45 12/16/24 18:00 12/16/24 18:15 Temperature Temperature Source Pulse Rate 79 81 73 Respiratory Rate 16 16 19 H Respiratory Effort Respiratory Pattern Blood Pressure 138/73 H 145/85 H 128/69 H Blood Pressure Mean 92 103 83 Pulse Ox 97 97 Oxygen Delivery Method Room Air Room Air 12/16/24 18:30 12/16/24 18:45 12/16/24 19:00 Temperature Temperature Source Pulse Rate 75 73 71 Respiratory Rate 20 H 19 H 20 H Respiratory Effort Respiratory Pattern Blood Pressure 121/75 H 119/52 L 116/58 L Blood Pressure Mean 88 71 76 Pulse Ox 98 97 Oxygen Delivery Method Room Air Room Air 12/16/24 19:15 12/16/24 19:30 12/16/24 19:45 Temperature Temperature Source Pulse Rate 71 72 Respiratory Rate 20 H 20 H Respiratory Effort Respiratory Pattern Blood Pressure 126/65 H 118/80 135/70 H Blood Pressure Mean 84 91 89 Pulse Ox 97 Oxygen Delivery Method Room Air 12/16/24 20:00 12/16/24 20:15 12/16/24 21:00 Temperature Temperature Source Pulse Rate 73 71 Respiratory Rate 15 20 H Respiratory Effort Respiratory Pattern Blood Pressure 105/93 H 125/84 H 131/63 H Blood Pressure Mean 99 98 82 Pulse Ox 97 Oxygen Delivery Method Room Air Weight Weight: 60.237 kg Body Mass Index (BMI) 22.1 Physical Exam Const alert, oriented x3 and no apparent distress General Appearance: cooperative HEENT normocephalic and head/scalp atraumatic Eyes PERRL Neck no lymphadenopathy Resp normal respiratory effort Cardio regular rate, regular rhythm and no murmurs GI normal to inspection, nondistended, normoactive bowel sounds, soft to palpation and non-tender Extremity normal to inspection Neuro oriented x3 Sensorium / Orientation: awake and alert Psych affect normal Results Lab / Micro Data 12/16/24 08:35 12/16/24 08:35 Labs: Laboratory Results - last 24 hr 12/16/24 08:35: WBC 6.1, RBC 3.14 L, Hgb 9.4 L, Hct 29.2 L, MCV 93.0, MCH 29.9, MCHC 32.2, RDW Std Deviation 49.7 H, RDW Coeff of Adamaris 14.6, Plt Count 77 L, MPV 10.6, Immature Gran % (Auto) 0.300, Neut % (Auto) 51.0, Lymph % (Auto) 35.6, [place] % (Auto) 9.8, Eos % (Auto) 2.8, Baso % (Auto) 0.5, Absolute Neuts (auto) 3.1, Absolute Lymphs (auto) 2.17, Nucleated RBC % 0, Sodium 137, Potassium 5.5 H, Chloride 108, Carbon Dioxide 19.1 L, Anion Gap 9, BUN 40 H, Creatinine 2.43 H, Estim Creat Clear Calc 29.26 L, Est GFR (MDRD) Non-Af 31 L, BUN/Creatinine Ratio 16.3, Glucose 82, Calcium 10.7, Troponin T High Sens 49 H 12/16/24 10:50: Troponin T Hi Sens 2 Hr 56 H* 12/16/24 13:40: Troponin T Hi Sens 4Hr 59 H* Imaging Radiology Impression Chest X-Ray 12/16/24 08:50 IMPRESSION: Hyperinflation. Persistent infiltration and/or mass lesion in the left lower lobe. Blunting of both costophrenic angles. Prior midline sternotomy. Reading Location: [facility] Assessment & Plan Assessment/Plan (1) NSTEMI (non-ST elevated myocardial infarction): PLAN: 1. NSTEMI - 3 days exertional chest pain and diaphoresis. Hx Prior CABG. no chest pain at this time. troponin elevated 49 to 56 to 59. EKG RBBB L anterior fasicular block. pt cannot have heparin due to low platelets. placed on aspirin, continue plavix, doxazosin, atorvastatin, losartan. recently had imdur and coreg discontinued for unclear reasons. resume coreg at this time. Consult cardiology. Pt has been accepted at [facility] for transfer, but no bed available at this time. Also of note CXR obtained showed possible mass LLL so a CT chest was performed which showed no mass, parenchymal scarring and calcification, scattered opacities. 2. Hyperkalemia - kayexalate, repeat in AM. 3. CKDIII s/p renal transplant - pt of transplant team, continue tacrolimus, prednisone, trend BMP 4. Hx thrombocytopenia and chronic anemia - will trend 6. Hx DVT/PE - continue eliquis 7 Hx GERD - on ppi 8. Hx COPD no sob or wheezing at this time, aerosols prn DVT ppx: eliquis This patient was seen by Joselo Alcantar PA-C under the supervision of Doctor Aragon.
[2024-12-16] MEDS: Doxazosin 4 MG Tablet 8 MG PO (21:55)
[2024-12-16] MEDS: APIXABAN 5 MG TABLET PO (21:55)
[2024-12-16] MEDS: Atorvastatin Calcium 80 MG Tablet PO (21:55)
--- NOTE | 2024-12-17 00:15 | EKG12_ITS ---
Test Reason : CP ADMISSION Blood Pressure : */* mmHG Vent. Rate : 67 BPM Atrial Rate : 71 BPM P-R Int : 132 ms QRS Dur : 140 ms QT Int : 418 ms P-R-T Axes : 45 -72 -66 degrees QTcB Int : 441 ms Sinus rhythm with Premature supraventricular complexes Right bundle branch block Left anterior fascicular block Bifascicular block T wave abnormality, consider inferolateral ischemia Abnormal ECG When compared with ECG of 16-Dec-2024 08:40, MANUAL COMPARISON REQUIRED DATA IS UNCONFIRMED Confirmed by KYRA BURT, JOESPH ([id number]), school photograph editor EDSON PEREIRA ([id number]) on 12/21/2024 11:41:48 AM Referred By: DURHAM Confirmed By: JOESPH RAE MD
[2024-12-17] MEDS: Insulin Lispro 100 UNIT/ML VIAL (ADMELOG) IV (00:43)
[2024-12-17] MEDS: Sodium Polystyrene Sulfonate 15 GM/60 ML UDC PO (00:47)
[2024-12-17] MEDS: Furosemide 20 MG/2 ML VIAL IV (00:47)
[2024-12-17] MEDS: Dextrose 10%-Water 250 ML 500 ML IV (00:48)
[2024-12-17] MEDS: Aspirin E.C. 81 MG Tablet 162 MG PO (00:49)
[2024-12-17 01:16] LABS: Bedside Glucose 113 mg/dL (74-106)
[2024-12-17 04:01] VITALS: BP 130/70; PULSE 73; RESP 16; TEMP 36.6; O2SAT 96
[2024-12-17 06:42] LABS: Cholesterol 111 mg/dL (<=200); High Density Lipoprotein 59 mg/dL; Low Density Lipoprotein Calc. 43 mg/dL; Triglycerides 46 mg/dL; Very Low Density Lipoprotein 9 mg/dL (5-40); cholesterol:hdl ratio screen 1.89
--- NOTE | 2024-12-17 10:12 | CASEMGMT ---
Insurance review for hospitals In-network with?[employer] insurance if transfer is recommended is as follows: [facility], . Stephany Lloyd, Discharge Planning Asst.
[2024-12-17 10:35] VITALS: BP 124/78; PULSE 71; RESP 16; TEMP 36.8; O2SAT 98
[2024-12-17] MEDS: Losartan Potassium 50 MG Tablet PO (10:42)
[2024-12-17] MEDS: Aspirin 81 MG TAB.CHEW PO (10:42)
[2024-12-17] MEDS: Clopidogrel Bisulfate 75 MG Tablet PO (10:42)
[2024-12-17] MEDS: predniSONE 5 MG Tablet PO (10:42)
[2024-12-17] MEDS: APIXABAN 5 MG TABLET PO ×2 (11:02→22:14)
[2024-12-17] MEDS: Pantoprazole Sodium 40 MG Tablet PO (11:02)
[2024-12-17] MEDS: TACROLIMUS 0.75 MG 1.5 MG PO (15:43)
--- NOTE | 2024-12-17 16:08 | PN.HOSP_ITS ---
Reason for Visit Reason for Visit: Diagnoses Non-ST elevation (NSTEMI) myocardial infarction (12/16/24) Subjective Subjective Patient was seen and examined today, he does not complain of any chest pain or shortness of breath. I asked the patient again whether he would want to undergo any workup here versus go to the [facility], patient prefers to go to the [facility] for further care and workup. I talked briefly with cardiology by phone today, they did not feel they had anything to add to the patient's care at this time due to the fact he was going to be transferred to [facility], they stated they would be glad to see the patient if necessary however. I did not feel was necessary at this time to get cardiology involved here. Objective Data Objective Data Vital Signs: Vital Signs Temp Pulse Resp BP Pulse Ox O2 Del Method 98.3 F 71 16 124/78 H 98 Room Air 12/17/24 10:35 12/17/24 10:35 12/17/24 10:35 12/17/24 10:35 12/17/24 10:35 12/17/24 10:35 Oxygen Delivery Method Room Air Weight: 58.8 kg Body Mass Index (BMI) 21.5 Intake & Output: Intake and Output for Last 24 Hours 12/15/24 12/16/24 12/17/24 23:59 23:59 23:59 Intake Total 565 / 565 Output Total 1280 / 1280 Balance -715 / -715 Lab / Micro Data 12/16/24 08:35 12/16/24 08:35 Labs: Laboratory Results - last 24 hr 12/17/24 00:46: POC Glucose 113 H 12/17/24 04:36: Triglycerides 46, Cholesterol 111, LDL Cholesterol, Calc 43, VLDL Cholesterol 9, HDL Cholesterol 59, Cholesterol/HDL Ratio 1.89 Radiography Diagnostic Testing: Radiology Impression Chest CT 12/16/24 21:30 IMPRESSION: 1. No suspicious pulmonary mass. 2. Pleural-parenchymal scarring and calcifications along the posterior left lower lobe. 3. Minimal scattered nodular and reticulonodular opacities in the bilateral upper and right lower lobes which may relate to an infectious/inflammatory process. 4. Cardiomegaly and coronary artery disease. One or more dose reduction techniques were used (e.g., Automated exposure control, adjustment of the mA and/or kV according to patient size, use of iterative reconstruction technique). Reading Location: [facility] Physical Exam Const alert, oriented x3, no apparent distress and average body habitus General Appearance: cooperative, well kempt and well developed Orientation / Consciousness: awake, oriented to person, oriented to place and oriented to time HEENT normocephalic, head/scalp atraumatic and moist oral mucous membranes Eyes PERRL, EOMs intact bilaterally and conjunctivae normal Neck supple, no JVD, thyroid normal and no carotid bruits General: trachea midline Resp normal respiratory effort, no retractions, no use of accessory muscles and clear to auscultation bilaterally Auscultation: Negative for rales, rhonchi or wheezes Cardio regular rate, regular rhythm, S1 normal heart sound, S2 normal heart sound, no murmurs, no rub and no gallops GI normal to inspection, nondistended, normoactive bowel sounds, soft to palpation, non-tender and non-distended Extremity no clubbing, cyanosis or edema Skin no rashes or lesions noted General Skin Exam: no breakdown Neuro oriented x3, CN's II-XII intact bilaterally, moves all extremities, no focal motor deficits and no sensory deficits noted Sensorium / Orientation: awake and alert Speech: speech normal Psych affect normal Assessment & Plan Assessment/Plan (1) NSTEMI (non-ST elevated myocardial infarction): PLAN: Plan 1. Non-STEMI in a patient with known coronary artery disease-patient will be monitored on telemetry, I have ordered a renal diet for the patient, again I do not feel is necessary to get cardiology involved at this point, we are waiting for a bed assignment at [facility]-patient has already been accepted there. #2 past history of renal transplant-patient is not currently on dialysis, he will remain on his antirejection drugs, complicates care, management, recovery, and prognosis #3 hyperkalemia-patient was given Kayexalate-I will repeat the patient's BMP today #4 Chronic kidney disease stage IIIb-complicates care, management, recovery, and prognosis, patient will remain on his home medications #5 COPD-patient is on as needed aerosol treatments #6 neurogenic bladder-patient has a chronic indwelling Machado catheter #7 chronic use of anticoagulant-patient is on Eliquis due to past history of VTE Total clinical time spent by myself addressing the patient's medical issues, reviewing all of his data, and collaborating with patient's care team: 35 minutes Charges/Coding Visit Charges Inpatient E&M: 01885 Subs Hosp L2
[2024-12-17 16:35] VITALS: BP 137/55; PULSE 74; RESP 16; TEMP 36.7; O2SAT 99
[2024-12-17] MEDS: Carvedilol 6.25 MG Tablet PO (16:40)
[2024-12-17 17:49] LABS: Anion Gap 9 (5-15); BUN 40 mg/dL (4-19); Calcium,Total 10.2 mg/dL (7.6-11.0); Carbon Dioxide 20.2 mmol/L (21.0-32.0); Chloride 106 mmol/L (98-108); Creatinine, Serum 2.33 mg/dL (0.70-1.20); EST Glomerular Filtration Rate 32 (>60); Estimated Creatinine Clearance 29.79 ml/min (50-250); Glucose 140 mg/dL (70-99); Potassium 6.1 mmol/L (3.3-5.1); Sodium Level 135 mmol/L (133-145)
[2024-12-17] MEDS: Sodium Polystyrene Sulfonate 15 GM/60 ML UDC 30 GM PO (19:21)
[2024-12-17 21:10] VITALS: BP 139/60; PULSE 64; RESP 16; TEMP 36.6; O2SAT 99
[2024-12-17] MEDS: Atorvastatin Calcium 80 MG Tablet PO (22:14)
[2024-12-17] MEDS: 0.9% Saline Lock 10 ML Syringe IV (22:14)
[2024-12-17] MEDS: Doxazosin 4 MG Tablet 8 MG PO (22:14)
[2024-12-18] VITALS (9 sets, daily range): BP systolic 111–142; BP diastolic 54–79; PULSE 65–80; RESP 16; TEMP 36.4–37.1; O2SAT 98–99
[2024-12-18 09:18] LABS: Anion Gap 11 (5-15); BUN 36 mg/dL (4-19); BUN/Creat Ratio 17.1 RATIO (10-20); Calcium,Total 9.3 mg/dL (7.6-11.0); Carbon Dioxide 20.4 mmol/L (21.0-32.0); Chloride 105 mmol/L (98-108); EST Glomerular Filtration Rate 36 (>60); Estimated Creatinine Clearance 33.06 ml/min (50-250); Glucose 75 mg/dL (70-99); Potassium 4.6 mmol/L (3.3-5.1); Sodium Level 136 mmol/L (133-145)
[2024-12-18] MEDS: Carvedilol 6.25 MG Tablet PO ×2 (11:00→17:58)
[2024-12-18] MEDS: Aspirin 81 MG TAB.CHEW PO (11:00)
[2024-12-18] MEDS: TACROLIMUS 0.75 MG 1.5 MG PO (11:00)
[2024-12-18] MEDS: APIXABAN 5 MG TABLET PO ×2 (11:00→22:17)
[2024-12-18] MEDS: Losartan Potassium 50 MG Tablet PO (11:07)
[2024-12-18] MEDS: Clopidogrel Bisulfate 75 MG Tablet PO (11:07)
[2024-12-18] MEDS: Pantoprazole Sodium 40 MG Tablet PO (11:07)
[2024-12-18] MEDS: predniSONE 5 MG Tablet PO (11:07)
--- NOTE | 2024-12-18 13:30 | PN_ITS ---
Subjective Subjective Patient seen and examined. He had no complaints Comfortably in bed. Review of symptoms otherwise negative. He is awaiting transfer to [facility] for cardiac evaluation. He has remained hemodynamically stable. Objective Data Objective Data Vital Signs: Vital Signs Temp Pulse Resp BP Pulse Ox O2 Del Method 97.5 F L 79 16 122/54 H 98 Room Air 12/18/24 08:40 12/18/24 11:04 12/18/24 08:40 12/18/24 11:04 12/18/24 08:40 12/18/24 08:40 Oxygen Delivery Method Room Air Weight: 129 lb 10.109 oz Body Mass Index (BMI) 21.5 Intake & Output: Intake and Output for Last 24 Hours 12/16/24 12/17/24 12/18/24 23:59 23:59 23:59 Intake Total 565 / 565 Output Total 1280 / 1630 700 / 700 Balance -715 / -1065 -700 / -700 Lab / Micro Data 12/16/24 08:35 12/18/24 06:46 Labs: Laboratory Results - last 24 hr 12/17/24 16:53: Sodium 135, Potassium 6.1 H*, Chloride 106, Carbon Dioxide 20.2 L, Anion Gap 9, BUN 40 H, Creatinine 2.33 H, Estim Creat Clear Calc 29.79 L, Est GFR (MDRD) Non-Af 32 L, BUN/Creatinine Ratio 17.0, Glucose 140 H, Calcium 10.2 12/18/24 06:46: Sodium 136, Potassium 4.6, Chloride 105, Carbon Dioxide 20.4 L, Anion Gap 11, BUN 36 H, Creatinine 2.10 H, Estim Creat Clear Calc 33.06 L, Est GFR (MDRD) Non-Af 36 L, BUN/Creatinine Ratio 17.1, Glucose 75, Calcium 9.3 Physical Exam Const alert, oriented x3, no apparent distress and well nourished General Appearance: cooperative and well developed HEENT normocephalic, head/scalp atraumatic, moist oral mucous membranes and oropharynx normal Eyes PERRL and EOMs intact bilaterally Neck no lymphadenopathy and supple Lymph Lymphatic: no lymphadenopathy noted and no lymphedema noted Resp normal respiratory effort, normal air movement and clear to auscultation bilaterally Cardio regular rate, regular rhythm, S1 normal heart sound, S2 normal heart sound and no murmurs GI normal to inspection, nondistended, normoactive bowel sounds, soft to palpation, non-tender and non-distended Extremity normal capillary refill, no clubbing, cyanosis or edema and no calf tenderness General Extremity: no tenderness to palpation of joints or extremities Skin General Skin Exam: no breakdown Neuro CN's II-XII intact bilaterally, no focal motor deficits and no sensory deficits noted Motor Exam: strength 5/5 throughout and general weakness Psych thought process normal, cooperative and affect normal Appearance: appropriate Assessment & Plan Assessment/Plan (1) NSTEMI (non-ST elevated myocardial infarction): PLAN: Plan #Non-ST elevation DC * Patient admitted with a complaint of chest pain. EKG showed no acute ST changes but troponins were elevated. * Patient awaiting transfer to [facility]. He states he prefers to follow-up there as he receives his cardiac care there. Awaiting transfer pending bed availability. * On aspirin and Plavix as well as carvedilol and high intensity statin #History of ESRD: * S/p renal transplant. Currently not on dialysis. Creatinine today is 2.1 which is around his baseline. Will monitor. * On tacrolimus and prednisone #Hyperkalemia: Resolved #Hypokalemia: This is chronic. Platelets have been in the 70s. Will monitor closely. #COPD: Not in exacerbation. Breathing treatments bronchodilators. #Neurogenic bladder: Has chronic indwelling Machado catheter. #History of venous thromboembolism: On Eliquis DVT prophylaxis: not indicated as patient on eliquis. Charges/Coding Visit Charges Inpatient E&M: 02577 Subs Hosp L2
--- NOTE | 2024-12-18 15:50 | CHAPLAIN ---
Type of Pastoral Visit _x__ Initial Visit ___ Follow-up Visit ___ On-call Visit ___ General Patient Visit ___ Spiritual Assessment ___ Family Conference ___ Bereavement ___ Rapid Response ___ Code Blue ___ Other (describe below) Pastoral Care Referral From _x__ Patient ___ Family ___ Nurse ___ Physician ___ Event Crew Technician ___ Button Pusher ___ Other (describe below) Sacrament/Intervention _x__ Active listening ___ Anointing ___ Yazidism ___ Bereavement ___ Communion ___ Irina exploration ___ _x__ Life review _x__ Prayer ___ Reconciliation ___ Sacrament of Sick _x__ Supportive presence ___ Wedding ___ Other (describe below) Pastoral Comments lots of supportive presence and listening as patient describes his health concerns, history, and need to be transferred to another hospital; prayer and presence given
[2024-12-18] MEDS: Atorvastatin Calcium 80 MG Tablet PO (22:17)
[2024-12-18] MEDS: Doxazosin 4 MG Tablet 8 MG PO (22:17)
[2024-12-19] VITALS (8 sets, daily range): BP systolic 107–143; BP diastolic 44–68; PULSE 60–80; RESP 14–16; TEMP 36.4–36.8; O2SAT 96–100
--- NOTE | 2024-12-19 05:27 | NURSING ---
Verbal report received from Fernandez Webber RN at this time. This RN resuming care.
[2024-12-19] MEDS: Aspirin 81 MG TAB.CHEW PO (09:55)
[2024-12-19] MEDS: Clopidogrel Bisulfate 75 MG Tablet PO (09:55)
[2024-12-19] MEDS: TACROLIMUS 0.75 MG 1.5 MG PO (09:55)
[2024-12-19] MEDS: Carvedilol 6.25 MG Tablet PO ×2 (09:55→17:56)
[2024-12-19] MEDS: predniSONE 5 MG Tablet PO (09:55)
[2024-12-19] MEDS: APIXABAN 5 MG TABLET PO (09:55)
[2024-12-19] MEDS: Pantoprazole Sodium 40 MG Tablet PO (09:55)
[2024-12-19] MEDS: Losartan Potassium 50 MG Tablet PO (09:55)
--- NOTE | 2024-12-19 12:33 | PCM.PROGNOTE ---
Subjective Subjective Patient seen and examined. He had no complaints today. He is still awaiting placement. Review of systems otherwise negative. Patient is upset because he has been here for several days and still awaiting transfer to [facility]. Patient was also asking why he has not seen cardiology as he was told he would see cardiology on admission. I explained to him that the previous hospitalist did speak to cardiology but because patient was being transferred to [facility], cardiology felt there was not anything they could add now. Patient however insistent on still seeing cardiology. Also explained to him that we are still awaiting a bed to be available at [facility]. He has remained hemodynamically stable and has not had any chest pain again since he was admitted to the floor. Objective Data Objective Data Vital Signs: Vital Signs Temp Pulse Resp BP Pulse Ox O2 Del Method 97.8 F 63 14 133/56 H 98 Room Air 12/19/24 08:21 12/19/24 12:31 12/19/24 08:24 12/19/24 08:21 12/19/24 08:24 12/19/24 08:24 Oxygen Delivery Method Room Air Weight: 129 lb 10.109 oz Body Mass Index (BMI) 21.5 Intake & Output: Intake and Output for Last 24 Hours 12/17/24 12/18/24 12/19/24 23:59 23:59 23:59 Intake Total 565 / 565 720 / 1440 1070 / 1070 Output Total 1280 / 1630 1550 / 2100 550 / 550 Balance -715 / -1065 -830 / -660 520 / 520 Lab / Micro Data 12/16/24 08:35 12/18/24 06:46 Physical Exam Const alert, oriented x3, no apparent distress, average body habitus and well nourished General Appearance: cooperative, well kempt and well developed Orientation / Consciousness: awake, oriented to person, oriented to place and oriented to time HEENT normocephalic, head/scalp atraumatic, moist oral mucous membranes and oropharynx normal Eyes PERRL, EOMs intact bilaterally and conjunctivae normal Neck no lymphadenopathy, supple, no JVD, thyroid normal and no carotid bruits General: trachea midline Lymph Lymphatic: no lymphadenopathy noted and no lymphedema noted Resp normal respiratory effort, normal air movement, no retractions, no use of accessory muscles and clear to auscultation bilaterally Cardio regular rate, regular rhythm, S1 normal heart sound, S2 normal heart sound and no murmurs GI normal to inspection, nondistended, normoactive bowel sounds, soft to palpation, non-tender and non-distended Extremity normal to inspection, normal capillary refill, no clubbing, cyanosis or edema and no calf tenderness General Extremity: no tenderness to palpation of joints or extremities Skin no rashes or lesions noted General Skin Exam: no breakdown Neuro oriented x3, CN's II-XII intact bilaterally, moves all extremities, no focal motor deficits and no sensory deficits noted Sensorium / Orientation: awake and alert Speech: speech normal Motor Exam: strength 5/5 throughout and general weakness Psych thought process normal, cooperative and affect normal Appearance: appropriate Assessment & Plan Assessment/Plan (1) NSTEMI (non-ST elevated myocardial infarction): PLAN: Plan #Non-ST elevation TN Patient admitted with a complaint of chest pain. EKG showed no acute ST changes but troponins were elevated. Patient awaiting transfer to [facility]. He states he prefers to follow-up there as he receives his cardiac care there. Awaiting transfer pending bed availability. On aspirin and Plavix as well as carvedilol and high intensity statin Cardiology consulted per patient request. Dr. Vazquez informed. #History of ESRD: S/p renal transplant. Currently not on dialysis. Creatinine today is 2.1 which is around his baseline. Will monitor. On tacrolimus and prednisone #Hyperkalemia: Resolved #Hypokalemia: This is chronic. Platelets have been in the 70s. Will monitor closely. #COPD: Not in exacerbation. Breathing treatments bronchodilators. #Neurogenic bladder: Has chronic indwelling Machado catheter. #History of venous thromboembolism: On Eliquis DVT prophylaxis: not indicated as patient on eliquis. Charges/Coding Visit Charges Inpatient E&M: 44938 Subs Hosp L2
--- NOTE | 2024-12-19 13:04 | PCM.CONS.C ---
Assessment & Plan Assessment/Plan (1) NSTEMI (non-ST elevated myocardial infarction): PLAN: Continue present management. Awaiting transfer to [facility] which is very reasonable in this patient whose had complicated anatomy with unsuccessful PCI at [facility] according to the patient and ongoing kidney dysfunction despite renal transplantation. Discussed patient's condition and options in detail. We will sign off at this time. If we can be of any further assistance please let us know. HPI Consult Data Date of Consult: 12/19/24 HPI Narrative Reason for Consultation: Non-STEMI HPI Narrative: MARIAN BARROSO, is a 54 M who presents with chest pain. Patient history of coronary artery disease status post CABG. He also has history of renal transplantation and his creatinine level is elevated. In the past he has had coronary workup at [facility]. He says the last time he was there they tried to fix one of his vessels for a long time and were unsuccessful. This time he preferred to be transferred to [facility] if tertiary hospital transfer was required so he can get a second opinion. He has been chest pain-free for the most part since Saturday. 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 Pulmonary embolism Neurogenic bladder Hyperparathyroidism Hyperhomocystinemia GERD (gastroesophageal reflux disease) DVT (deep venous thrombosis) Depression Claudication VIC (obstructive sleep apnea) Chronic obstructive pulmonary disease (COPD) Chronic kidney disease, stage 3 Home Medications ?Medication ?Instructions ?Recorded ?Last Taken ?Type atorvastatin 80 mg tablet 80 mg PO QHS cholesterol 12/30/17 12/16/24 History acetaminophen 500 mg tablet 1,000 mg PO Q8 PRN fever or pain 11/15/23 Unknown History albuterol sulfate 90 mcg/actuation 1 - 2 puff inhalation Q4H PRN PRN 11/20/23 Unknown Rx aerosol inhaler Shortness Of Breath ##1 ipratropium 0.5 mg-albuterol 3 mg 3 ml inhalation Q6H PRN PRN 05/19/24 Unknown History (2.5 mg base)/3 mL nebulization wheezing soln apixaban 5 mg tablet 5 mg PO BID Blood Thinner 06/13/24 12/16/24 History carvedilol 6.25 mg tablet 6.25 mg PO BID 11/08/24 Unknown History cholecalciferol (vitamin D3) 50 100 mcg PO DAILY Supplement 11/08/24 12/16/24 History mcg (2,000 unit) capsule clopidogrel 75 mg tablet 75 mg PO DAILY Antiplatelet 11/08/24 12/16/24 History pantoprazole 40 mg tablet,delayed 40 mg PO DAILY Decrease stomach 11/08/24 12/16/24 History release acid tacrolimus 0.75 mg tablet,extended 1.5 mg PO DAILY Immunosuppressant 11/08/24 12/16/24 History release 24 hr (Envarsus XR) ciprofloxacin HCl 500 mg tablet 500 mg PO DAILY CHRONIC UTI 12/16/24 12/16/24 History doxazosin 4 mg tablet 8 mg PO QHS BLADDER 12/16/24 12/16/24 History guaifenesin 600 mg tablet, 600 mg PO BID PRN PRN cough 12/16/24 Unknown History extended release 12 hr (Mucus Relief ER) losartan 50 mg tablet 50 mg PO DAILY Blood Pressure 12/16/24 12/16/24 History magnesium oxide 400 mg (241.3 mg 400 mg PO DAILY Supplement 12/16/24 12/16/24 History magnesium) tablet melatonin 5 mg tablet 5 mg PO QHS INSOMNIA 12/16/24 Unknown History prednisone 5 mg tablet 5 mg PO DAILY liver transplant 12/16/24 12/16/24 History Allergy/AdvReac Type Severity Reaction Status Date / Time propoxyphene napsylate (From Allergy Hives Verified 12/16/24 23:00 Darvocet-N) venom-honey bee (bee venom Allergy Hives Verified 12/16/24 23:00 (honey bee)) Family History Father Arthritis Cancer Lung cancer, 1990 CAD (coronary artery disease) Mother CAD (coronary artery disease) Diet 2012 Surgical History S/P femoral-femoral bypass surgery History of quadruple bypass S/P pericardial window creation (~1991) History of lung biopsy (~2007) Renal transplant recipient History of renal transplant Social History household members: spouse housing: house Smoking Status: Former smoker pack-years: 19 Tobacco: How many years used: 15 alcohol intake: never substance use type: does not use Physical Exam Const alert and oriented x3 HEENT normocephalic Resp normal respiratory effort Cardio regular rate Risk Stratification Risk Stratification Applicable: No Charges/Coding Visit Charges Inpatient E&M: 93081 Init Hosp L1 Objective Data Vital Signs: Vital Signs Temp Pulse Resp BP Pulse Ox O2 Del Method 97.8 F 63 14 133/56 H 98 Room Air 12/19/24 08:21 12/19/24 12:31 12/19/24 08:24 12/19/24 08:21 12/19/24 08:24 12/19/24 08:24 Oxygen Delivery Method Room Air Weight: 129 lb 10.109 oz Body Mass Index (BMI) 21.5 Intake & Output: Intake and Output for Last 24 Hours 12/17/24 12/18/24 12/19/24 23:59 23:59 23:59 Intake Total 565 / 565 720 / 1440 1070 / 1070 Output Total 1280 / 1630 1550 / 2100 550 / 550 Balance -715 / -1065 -830 / -660 520 / 520 Lab / Micro Data 12/16/24 08:35 12/18/24 06:46 Cardiology Labs/Tests Rhythm: EKG: ECHO: Stress Test: Cardiac Cath: PCI: CT Surgery: Holter monitor: EPS: PPM: CXR: Chest CT Scan:
[2024-12-19] MEDS: 0.9% Saline Lock 10 ML Syringe IV (18:00)
--- NOTE | 2024-12-19 18:58 | NURSING ---
report called to Sydnee Nguyen at [facility] [phone]
--- NOTE | 2024-12-20 14:18 | PCM.DC.SUM ---
Providers Date of Admission: 12/16/24 Date of Discharge: 12/19/24 Primary Care Physician: Melissa Judd, [employer] Consultations 12/19/24 11:03 Consult: Cardiology Routine Consulting Provider: Smith Vazquez Reason for Consult: nonstemi, patient request EMERGENT Consult: No MD Notified: Yes Date Notified: 12/19/24 Time Notified: 11:03 Method of Notification: Verbal Reason For Visit: NSTEMI Diagnosis Discharge Diagnosis (1) NSTEMI (non-ST elevated myocardial infarction): Status: Acute Code(s): I21.4 - Non-ST elevation (NSTEMI) myocardial infarction Plan #Non-ST elevation AK Patient admitted with a complaint of chest pain. EKG showed no acute ST changes but troponins were elevated. Patient awaiting transfer to [facility]. He states he prefers to follow-up there as he receives his cardiac care there. Awaiting transfer pending bed availability. On aspirin and Plavix as well as carvedilol and high intensity statin Cardiology consulted per patient request. Dr. Vazquez informed. #History of ESRD: S/p renal transplant. Currently not on dialysis. Creatinine today is 2.1 which is around his baseline. Will monitor. On tacrolimus and prednisone #Hyperkalemia: Resolved #Hypokalemia: This is chronic. Platelets have been in the 70s. Will monitor closely. #COPD: Not in exacerbation. Breathing treatments bronchodilators. #Neurogenic bladder: Has chronic indwelling Machado catheter. #History of venous thromboembolism: On Eliquis DVT prophylaxis: not indicated as patient on eliquis. Medications at Discharge Home Medications atorvastatin 80 mg tablet 80 mg PO QHS cholesterol 12/30/17 acetaminophen 500 mg tablet 1,000 mg PO Q8 PRN fever or pain 11/15/23 albuterol sulfate 90 mcg/actuation aerosol inhaler 1 - 2 puff inhalation Q4H PRN PRN Shortness Of Breath ##1 11/20/23 ipratropium 0.5 mg-albuterol 3 mg (2.5 mg base)/3 mL nebulization soln 3 ml inhalation Q6H PRN PRN wheezing 05/19/24 apixaban 5 mg tablet 5 mg PO BID Blood Thinner 06/13/24 carvedilol 6.25 mg tablet 6.25 mg PO BID 11/08/24 cholecalciferol (vitamin D3) 50 mcg (2,000 unit) capsule 100 mcg PO DAILY Supplement 11/08/24 clopidogrel 75 mg tablet 75 mg PO DAILY Antiplatelet 11/08/24 pantoprazole 40 mg tablet,delayed release 40 mg PO DAILY Decrease stomach acid 11/08/24 tacrolimus 0.75 mg tablet,extended release 24 hr (Envarsus XR) 1.5 mg PO DAILY Immunosuppressant 11/08/24 ciprofloxacin HCl 500 mg tablet 500 mg PO DAILY CHRONIC UTI 12/16/24 doxazosin 4 mg tablet 8 mg PO QHS BLADDER 12/16/24 guaifenesin 600 mg tablet, extended release 12 hr (Mucus Relief ER) 600 mg PO BID PRN PRN cough 12/16/24 losartan 50 mg tablet 50 mg PO DAILY Blood Pressure 12/16/24 magnesium oxide 400 mg (241.3 mg magnesium) tablet 400 mg PO DAILY Supplement 12/16/24 melatonin 5 mg tablet 5 mg PO QHS INSOMNIA 12/16/24 prednisone 5 mg tablet 5 mg PO DAILY liver transplant 12/16/24 Hospital Course Operations None Procedures None Summary of Care Provided Minutes Spent on Discharge: 45 Hospital Course: Patient is a 54-year-old male with a past medical history as outlined was admitted through the ED on 12/16/2024 with complaint of chest pain which have been going on for about 3 days and had been persistent, midsternal and radiated to the back with no radiation to the arms. It was exacerbated by exertion and relieved by rest and he had some associated sweating. In the ED he was found to have elevated troponins. EKG showed left anterior fascicular block and a right bundle branch block. Potassium was also elevated He was admitted to be managed for non-STEMI. Patient was to be transferred to [facility] as that is where patient had received his prior cardiology care. He was accepted there but there was no bed available so he was admitted here pending transfer to [facility]. During the course of the hospital stay cardiology was consulted per patient's request even though he was to be transferred. Patient got a bed at [facility] and was transferred on 12/19/2024. Patient was seen on 12/19/2024 prior to being transferred. As stated in the progress note of 12/19/2024, patient was upset at his stay here awaiting transfer and was upset that he had not been seen by cardiology. Despite explanations by this hospitalist that cardiology would not offer him much during the stay because he was being transferred to a tertiary facility, patient was insistent on cardiology consult as he said he had been told he will be seen by cardiology during this admission. Cardiology was therefore consulted. Labs and vitals reviewed. Physical Exam Const alert, oriented x3, no apparent distress, average body habitus and well nourished General Appearance: cooperative, comfortable, well kempt and well developed Orientation / Consciousness: awake, oriented to person, oriented to place and oriented to time HEENT normocephalic, head/scalp atraumatic, hearing grossly normal bilaterally, moist oral mucous membranes and oropharynx normal Mouth: oral and palatal mucosa normal Eyes PERRL, EOMs intact bilaterally and conjunctivae normal Neck no lymphadenopathy, supple, no JVD, thyroid normal and no carotid bruits General: trachea midline Lymph Lymphatic: no lymphadenopathy noted and no lymphedema noted Resp normal respiratory effort, normal air movement, no retractions, no use of accessory muscles and clear to auscultation bilaterally Auscultation: Negative for rales, rhonchi or wheezes Cardio regular rate, regular rhythm, S1 normal heart sound, S2 normal heart sound, no murmurs, no rub and no gallops GI normal to inspection, nondistended, normoactive bowel sounds, soft to palpation, non-tender and non-distended Extremity normal to inspection, full ROM, normal capillary refill, no clubbing, cyanosis or edema and no calf tenderness General Extremity: no tenderness to palpation of joints or extremities Skin no rashes or lesions noted General Skin Exam: no breakdown Neuro oriented x3, CN's II-XII intact bilaterally, moves all extremities, no focal motor deficits and no sensory deficits noted Sensorium / Orientation: awake and alert Speech: speech normal Motor Exam: strength 5/5 throughout and general weakness Psych thought process normal, cooperative and affect normal Appearance: appropriate Weight / BMI Weight Weight: 129 lb 10.109 oz Body Mass Index (BMI) 21.5 ABG / Lab / Microbiology Data 12/16/24 08:35 12/18/24 06:46 D/C Instructions DC O2, CPAP, BIPAP Needs Home O2 Discharge instructions: No DC home with Oxygen: No Meaningful Use Info Meaningful Use Meaningful Use Diagnoses (Choose all that apply): AMI AMI/Post PCI/Angioplasty Aspirin given w/in 24hrs of arrival?: Yes ASA at discharge?: No Reason ASA not ordered:: Drug Interaction (transferred to tertiary facility) Antiplatelet Therapy at Discharge:: No Reason Antiplatelet Therapy not ordered:: transferred Statins at discharge?: No Reason statins not ordered:: Allergy (transferrred) Darrikc/ARB at discharge?: No Reason Darrick/ARB not ordered:: Not indicated (transferred) Beta Anne at discharge?: No Reason Beta Anne not ordered:: Allergy (transferred) Done w/ Acute AK measure.: Yes Ischemic Stroke Statin Dosing Therapy Reference: STATIN DOSE THERAPY REFERENCE: * Patients > 75 years receive moderate or high dose statin therapy. * Patients 75 years or YOUNGER should receive HIGH intensity statin dose unless contraindicated. You will be required to document reason for non-treatment if statin daily dose does not meet guidelines. HIGH DOSE STATIN THERAPY DAILY Atorvastatin > than or = to 40 mg Rosuvastatin > than or = to 20 mg Amlodipine + Atorvastatin > than or = to 2.5/40 mg Ezetimibe + Simvastatin 10/80 mg Simvastatin 80mg Discharge Plan Admission Admit Date/Time: 12/16/24 21:47 Attending Provider: Kiley Iriwn Primary Care Provider: Melissa Judd Consulting Providers: Joshua Aragon; Dann Gayle; Smith Vazquez Discharge Orders/Prescriptions Prescriptions: No Action atorvastatin 80 MG tablet 80 mg PO QHS Patient Comments: acetaminophen 500 MG tablet 1,000 mg PO Q8 PRN (Reason: fever or pain) albuterol sulfate 1 INHALER inhaler 1 - 2 puff inhalation Q4H PRN PRN (Reason: Shortness Of Breath) Qty: 1 2RF ipratropium-albuterol 0.5 mg-3 mg(2.5 mg base)/3 mL solution for nebulization 3 ml inhalation Q6H PRN PRN (Reason: wheezing) Envarsus XR 0.75 mg tablet extended release 24 hr 1.5 mg PO DAILY Patient Comments: TAKE 1 AND 1/2 TABLETS carvedilol 6.25 mg tablet 6.25 mg PO BID cholecalciferol (vitamin D3) 50 mcg (2,000 unit) capsule 100 mcg PO DAILY Patient Comments: TAKE 2 CAPSULES (100 MCG) BY MOUTH EARLY IN THE MORNING. clopidogrel 75 mg tablet 75 mg PO DAILY pantoprazole 40 mg tablet,delayed release (DR/EC) 40 mg PO DAILY Patient Comments: PLEASE SEE ATTACHED FOR DETAILED DIRECTIONS TAKE IN MORNINGS WITH MEALS. DO NOT CRUSH OR CHEW apixaban 5 mg tablet 5 mg PO BID prednisone 5 mg tablet 5 mg PO DAILY magnesium oxide 400 mg (241.3 mg magnesium) tablet 400 mg PO DAILY losartan 50 mg tablet 50 mg PO DAILY ciprofloxacin HCl 500 mg tablet 500 mg PO DAILY doxazosin 4 mg tablet 8 mg PO QHS guaifenesin [Mucus Relief ER] 600 mg tablet extended release 12hr 600 mg PO BID PRN PRN (Reason: cough) melatonin 5 mg tablet 5 mg PO QHS Referrals / Follow Up: Melissa Judd CNS [Primary Care Provider] - Diana Tate PA [Non-Staff] - Disposition Disposition (needs filled in before D/C Order can be placed): Acute Care Hospital Charges/Coding Visit Charges Inpatient E&M: 74363 Disch Hosp >30min
== END 2024-12-19 19:45 | disposition short-term general hospital (02) | DRG 281 ==
LOC: ED 18:20 → PCU 22:17
PROVIDERS: Emergency Medicine; Internal Medicine; Admitting Provider Internal Medicine; Emergency Provider Emergency Medicine; PCP Clinical Nurse Specialist Adult Health; Visit Provider Student in an Organized Health Care Education/Training Program
DX: I21.4 Non-ST elevation (NSTEMI) myocardial infarction (principal); Z94.0 Kidney transplant status; I13.0 Hypertensive heart and chronic kidney disease with heart failure and stage 1 through stage 4 chronic kidney disease, or unspecified chronic kidney disease; D69.6 Thrombocytopenia, unspecified; J44.9 Chronic obstructive pulmonary disease, unspecified; I73.9 Peripheral vascular disease, unspecified; D64.9 Anemia, unspecified; N18.32 Chronic kidney disease, stage 3b; I50.9 Heart failure, unspecified; E87.5 Hyperkalemia; E21.3 Hyperparathyroidism, unspecified; G47.33 Obstructive sleep apnea (adult) (pediatric); K21.9 Gastro-esophageal reflux disease without esophagitis; Z79.02 Long term (current) use of antithrombotics/antiplatelets; Z79.01 Long term (current) use of anticoagulants; Z79.52 Long term (current) use of systemic steroids; N31.9 Neuromuscular dysfunction of bladder, unspecified; Z86.718 Personal history of other venous thrombosis and embolism; Z87.891 Personal history of nicotine dependence; Z95.1 Presence of aortocoronary bypass graft; Z88.8 Allergy status to other drugs, medicaments and biological substances; Z95.820 Peripheral vascular angioplasty status with implants and grafts; Z96.0 Presence of urogenital implants; R82.71 Bacteriuria
CPT/HCPCS: 36415; 71045; 71250; 80048; 80061; 82962; 84484; 85025; 93005; 99285; A4216; J1940

== ENCOUNTER 2025-03-05 09:06 | Inpatient (IN) | payer OTHER, SELFPAY ==
[2025-03-05] VITALS (14 sets, daily range): BP systolic 122–156; BP diastolic 63–82; PULSE 53–103; RESP 13–18; TEMP 36.5–36.7; O2SAT 94–98; BMI 23.0; BMI 22.1
--- NOTE | 2025-03-05 09:16 | EKG12_ITS ---
Test Reason : CP Blood Pressure : */* mmHG Vent. Rate : 100 BPM Atrial Rate : * BPM P-R Int : * ms QRS Dur : 142 ms QT Int : 384 ms P-R-T Axes : * -79 52 degrees QTcB Int : 495 ms Atrial fibrillation Right bundle branch block Left anterior fascicular block Bifascicular block Abnormal ECG Confirmed by Celso Byrd ([id number]), editor index EDSON PEREIRA ([id number]) on 03/08/2025 10:46:26 AM Referred By: QUINTEN/JAIME Confirmed By: Celso Byrd
--- NOTE | 2025-03-05 09:16 | RAD_ITS ---
EXAM: XR Chest, 1 View CLINICAL INDICATION: CHEST PAIN TECHNIQUE: Frontal view of the chest. COMPARISON: No relevant prior studies available. FINDINGS: LUNGS AND PLEURAL SPACES: Bilateral pleural effusions. HEART: Cardiomegaly with pulmonary congestion and edema. Superimposed pneumonia cannot be excluded. MEDIASTINUM: Unremarkable. Normal mediastinal contour. BONES/JOINTS: Unremarkable. No acute fracture. RAD/Chest 1 View (Portable) IMPRESSION: 1. Cardiomegaly with pulmonary congestion and edema. Superimposed pneumonia ca nnot be excluded. 2. Bilateral pleural effusions. Reading [facility]
--- NOTE | 2025-03-05 09:17 | ED.VIS.CHEST ---
HPI History of Present Illness Chief Complaint: Chest Pain Informant: patient Narrative Narrative: 55-year-old male with a history of an [place], possibly A-fib he is not sure, and prior CABG presenting with left-sided chest pain that feels sharp started 2 hours ago while he was driving, radiates into his left upper back, pleuritic component. No new leg pain or swelling. Takes aspirin and clopidogrel, no anticoagulants. Had a blood clot in his lung long time ago. States he does not think this feels the same. He states he has been out of breath with exertion the last few days, no coughing or fevers. Former smoker. No GI symptoms. States he felt some palpitations/skipping earlier but not so much right now even though he currently is in A-fib. Patient states last time he had heart problems he was transferred to [place] but they were unable to reach the blocked area via catheter so he has been treated medically. [facility] Medical History NSTEMI (non-ST elevated myocardial infarction) Exertional chest pain Thrombocytopenia Troponin I above reference range Hypertension Immunosuppressed status PVD (peripheral vascular disease) End stage renal disease senior care systemic steroid user Pulmonary embolism Neurogenic bladder Hyperparathyroidism Hyperhomocystinemia GERD (gastroesophageal reflux disease) DVT (deep venous thrombosis) Depression Claudication VIC (obstructive sleep apnea) Chronic obstructive pulmonary disease (COPD) Chronic kidney disease, stage 3 Home Medications ?Medication ?Instructions ?Recorded ?Last Taken ?Type atorvastatin 80 mg tablet 80 mg PO QHS cholesterol 12/30/17 03/04/25 History acetaminophen 500 mg tablet 1,000 mg PO Q8 PRN fever or pain 11/15/23 Unknown History ipratropium 0.5 mg-albuterol 3 mg 3 ml inhalation Q6H PRN wheezing 05/19/24 Unknown History (2.5 mg base)/3 mL nebulization soln apixaban 5 mg tablet 5 mg PO BID Blood Thinner 06/13/24 03/04/25 History cholecalciferol (vitamin D3) 50 100 mcg PO DAILY Supplement 11/08/24 03/04/25 History mcg (2,000 unit) capsule clopidogrel 75 mg tablet 75 mg PO DAILY Antiplatelet 11/08/24 03/04/25 History pantoprazole 40 mg tablet,delayed 40 mg PO DAILY Decrease stomach 11/08/24 03/04/25 History release acid tacrolimus 0.75 mg tablet,extended 1.5 mg PO DAILY Immunosuppressant 11/08/24 03/04/25 History release 24 hr (Envarsus XR) magnesium oxide 400 mg (241.3 mg 400 mg PO DAILY Supplement 12/16/24 03/04/25 History magnesium) tablet melatonin 5 mg tablet 5 mg PO QHS INSOMNIA 12/16/24 03/04/25 History prednisone 5 mg tablet 5 mg PO DAILY liver transplant 12/16/24 03/04/25 History albuterol sulfate 90 mcg/actuation 1 - 2 puff inhalation Q4H PRN 03/05/25 Unknown History aerosol inhaler Shortness Of Breath cefdinir 300 mg capsule 300 mg PO DAILY 03/05/25 03/04/25 History darbepoetin sridevi in polysorbat 60 6.25 mcg IV QWEEK 03/05/25 Unknown History mcg/0.3 mL in polysorbate injection syringe (Aranesp) doxazosin 8 mg tablet 8 mg PO QHS 03/05/25 03/04/25 History gabapentin 300 mg capsule 300 mg PO BID PRN NERVE PAIN 03/05/25 Unknown History isosorbide mononitrate 30 mg 30 mg PO DAILY 03/05/25 03/04/25 History tablet,extended release 24 hr losartan 25 mg tablet 25 mg PO DAILY 03/05/25 03/04/25 History metoprolol tartrate 25 mg tablet 25 mg PO BID 03/05/25 03/04/25 History sodium bicarbonate 650 mg tablet 1,300 mg PO BID 03/05/25 03/04/25 History trazodone 50 mg tablet 50 mg PO QHS 03/05/25 03/04/25 History Allergy/AdvReac Type Severity Reaction Status Date / Time propoxyphene napsylate (From Allergy Hives Verified 12/16/24 23:00 Darvocet-N) venom-honey bee (bee venom Allergy Hives Verified 12/16/24 23:00 (honey bee)) Family History Father Arthritis Cancer Lung cancer, 1990 CAD (coronary artery disease) Mother CAD (coronary artery disease) Diet 2012 Surgical History S/P femoral-femoral bypass surgery History of quadruple bypass S/P pericardial window creation (~1991) History of lung biopsy (~2007) Renal transplant recipient History of renal transplant Social History household members: spouse housing: house Smoking Status: Former smoker pack-years: 19 Tobacco: How many years used: 15 alcohol intake: never substance use type: does not use ROS ROS ED Constitutional Constitutional ED: Denies chills or fever(s) Eyes Eyes: Denies change in vision or diplopia ENT ENT ED: Denies rhinorrhea or sore throat Cardiovascular Cardiovascular: Reports as per HPI, chest pain and palpitations Respiratory/Chest Respiratory/Chest: Reports dyspnea on exertion; Denies cough or dyspnea Gastrointestinal Gastrointestinal: Denies abdominal pain, diarrhea, nausea or vomiting Genitourinary Genitourinary ED: Denies dysuria or hematuria Musculoskeletal Musculoskeletal: Denies back pain or neck pain Integumentary Denies abscess or rash Neurologic Neurologic: Denies headache(s), paresthesias or weakness Psychiatric Psychiatric: Denies suicidal thoughts EXAM Physical Exam Const Vital Signs: 03/05/25 09:07 03/05/25 09:16 03/05/25 11:00 Temperature 97.9 F Temperature Source Oral Pulse Rate 103 H 54 L Respiratory Rate 18 Blood Pressure 122/71 H Blood Pressure Mean 88 Pulse Ox 97 97 96 Oxygen Delivery Method Room Air Room Air 03/05/25 12:00 03/05/25 13:00 03/05/25 14:00 Temperature Temperature Source Pulse Rate 60 56 L 53 L Respiratory Rate 18 13 18 Blood Pressure 122/82 H 130/69 H 130/78 H Blood Pressure Mean 95 89 95 Pulse Ox 98 98 98 Oxygen Delivery Method 03/05/25 15:00 03/05/25 16:00 03/05/25 16:39 Temperature 97.8 F Temperature Source Pulse Rate 64 62 59 L Respiratory Rate 15 14 18 Blood Pressure 128/77 H 137/63 H 140/78 H Blood Pressure Mean 94 86 98 Pulse Ox 94 95 98 Oxygen Delivery Method Room Air 03/05/25 16:46 Temperature Temperature Source Pulse Rate 61 Respiratory Rate 16 Blood Pressure Blood Pressure Mean Pulse Ox Oxygen Delivery Method Positive well nourished and well developed General Appearance ED: well developed and NAD HEENT Reports moist mucous membranes normocephalic and atraumatic Eyes PERRL and EOMs intact bilaterally Neck full ROM, supple and no JVD Resp normal respiratory effort and clear to auscultation bilaterally Resp Narrative: Diminished throughout Cardio no murmurs Rhythm: abnormal rhythm irregularly irregular Peripheral Pulses: pulses 2+ throughout GI non-tender and non-distended Auscultation: normoactive bowel sounds Palpation: soft Back/Spine no CVA tenderness General Back: other FROM Extremity normal to inspection General Extremety ED: Yes edema; Negative for pulses abnormal or tenderness General Extremity: edema bilateral lower extremity Details: mild (Symmetric); Negative for pulses abnormal Neuro oriented x3, CN's II-XII intact bilaterally and no sensory deficits noted Sensorium / Orientation: awake and alert Motor Exam: strength 5/5 throughout Psych Mood & Affect: anxious Skin no rashes or lesions noted and no wounds MDM MDM MDM Narrative Medical decision making narrative: D-dimer is normal ruling out PE, his initial EKG shows A-fib with bifascicular block, the morphology is unchanged, the rhythm is different, he is unsure about the status of his heart with regards to A-fib or not, he thinks he was told he had it but he is not sure. He is not anticoagulated, and he has hypertension, vascular disease, remote PE, making his risk high enough to deserve anticoagulants so this may be new: ALYSSA?DS?-VASc Score for Atrial Fibrillation Stroke Risk from [email or web address] on 03/05/2025 All calculations should be rechecked by clinician prior to use RESULT SUMMARY: 4 points Stroke risk was 4.8% per year in >90,000 patients (the [place] Atrial Fibrillation Cohort Study) and 6.7% risk of stroke/TIA/systemic embolism. INPUTS: Age ?> 0 = <65 Sex ?> 0 = Male CHF history ?> 0 = No Hypertension history ?> 1 = Yes Stroke/TIA/thromboembolism history ?> 2 = Yes Vascular disease history (prior [place], peripheral artery disease, or aortic plaque) ?> 1 = Yes Diabetes history ?> 0 = No His renal function is a little worse than usual, he states he has not had much to drink today, certainly this may be related. His initial troponin is 51 slightly elevated, and his proBNP is very high at 30,000, which makes sense given his renal failure. Chest x-ray 2 views of my interpretation shows chronic abnormalities, left-sided pleural effusion, and congestion. His second troponin went higher at 77. This is concerning, however still possibly nonspecific. Currently his chest pain is resolved. He states his busher helper is Dr. Keke Perez with [facility] and he has an appointment with her in 5 days. I put a call out to speak with her. However, we never received a call back. I did speak with her busher helper Dr. Gardner, and I was able to get some records from when he was recently in [place] in December at [facility], and had a heart cath at in May 2024. The heart cath showed of CABG x 4 with grafts intact, and a 100% proximal RCA obstruction/occlusion with a calcified MANAGING MANAGER, and so in December they did not recath him or perform intervention. He is currently pain-free. Cardiology states he is unlikely to need a stress test or an emergent cath and would be okay to stay here for medical management especially because he is newly in atrial fibrillation and not anticoagulated, and agrees that he is high risk and it would be indicated. Patient amenable, discussed with hospitalist. History & Record Review Additional record(s) reviewed:: Prior outpatient record Lab Data Attestation: I reviewed the patient's lab results. Labs: Laboratory Results - last 24 hr 03/05/25 03/05/25 03/05/25 09:50 11:58 14:01 WBC 6.7 RBC 3.16 L Hgb 9.5 L Hct 29.2 L MCV 92.4 MCH 30.1 MCHC 32.5 RDW Std Deviation 44.0 H RDW Coeff of Adamaris 13.1 Plt Count 79 L MPV 11.7 Immature Gran % (Auto) 0.500 Neut % (Auto) 64.2 Lymph % (Auto) 25.1 Johnston % (Auto) 7.4 Eos % (Auto) 2.3 Baso % (Auto) 0.5 Absolute Neuts (auto) 4.3 Absolute Lymphs (auto) 1.67 Nucleated RBC % 0 D-Dimer Quant (PE/DVT) 0.43 Sodium 139 Potassium 5.2 H Chloride 105 Carbon Dioxide 23.1 Anion Gap 11 BUN 42 H Creatinine 2.68 H Estim Creat Clear Calc 26.77 L Est GFR (MDRD) Non-Af 27 L BUN/Creatinine Ratio 15.6 Glucose 85 Calcium 9.9 Troponin T High Sens 51 H Troponin T Hi Sens 2 Hr 77 H* Troponin T Hi Sens 4Hr 123 H* [place] [address] H Radiography Diagnostic Testing: Clinical Impression(s) from Imaging Studies Chest X-Ray 03/05/25 09:16 IMPRESSION: 1. Cardiomegaly with pulmonary congestion and edema. Superimposed pneumonia cannot be excluded. 2. Bilateral pleural effusions. Reading Location: [facility] Rhythm Strip Rhythm Strip: A-fib Rate: 100 Ectopy: None EKG Initial EKG: Attestation: I personally reviewed and interpreted this EKG as follows: Interpretation: No Acute Injury Pattern, Atrial Fibrillation, RBBB and LAFB Comments: Unchanged morphology compared with prior EKG which seemed to show sinus rhythm with PACs Management Discussion w/another healthcare provider: Hospitalist and General Dentist (cardiology Dr. Gardner) Discharge Plan Dx/Rx/DC Orders Clinical Impression: Chest pain, CHF exacerbation, Elevated troponin, Acute kidney injury superimposed on chronic kidney disease, A-fib Disposition Disposition: [facility]
[2025-03-05] MEDS: Aspirin 81 MG TAB.CHEW 324 MG PO (09:37)
[2025-03-05] MEDS: Morphine 4 MG/ML Syringe IV (09:37)
[2025-03-05 10:02] LABS: Absolute Lymphocyte Count 1.67 X10^3/uL (0.83-4.51); Absolute Neutrophil Count 4.3 X10^3/uL (2.0-7.7); Basophil# 0.03 X10^3/uL; Basophil% 0.5 % (0-1); Eosinophil# 0.15 X10^3/uL; Eosinophils% 2.3 % (0-5); Hematocrit 29.2 % (40-54); Hemoglobin 9.5 g/dL (13.0-16.5); Lymphocyte # 1.67 X10^3/ul (0.83-4.51); Lymphocyte % 25.1 % (19-41); Mean Corp Hgb Conc 32.5 g/dL (32-36); Mean Corpuscular Hgb 30.1 pg (27.0-32.0); Mean Corpuscular Volume 92.4 fL (80-94); Mean Platelet Vol. 11.7 fl (6.2-12.0); Monocyte# 0.49 X10^3/uL; Monocyte% 7.4 % (0-10); NRBC Flagged by Analyzer 0 % (0-5); Neutrophil # 4.28 X10^3/uL (2.7-7.7); Neutrophil % 64.2 % (47-70); POSITIVE COUNT YES; Platelet Count 79 K/mm3 (150-450); RBC Distribution Width CV 13.1 % (11.6-14.6); Red Blood Count 3.16 M/mm3 (4.6-6.2); White Blood Count 6.7 K/mm3 (4.4-11.0)
[2025-03-05 10:19] LABS: D-Dimer Quantitative (DVT/PE) 0.43 FEU/ug/m (0.27-0.49)
[2025-03-05 10:24] LABS: Anion Gap 11 (5-15); BUN 42 mg/dL (4-19); BUN/Creat Ratio 15.6 RATIO (10-20); Calcium,Total 9.9 mg/dL (7.6-11.0); Carbon Dioxide 23.1 mmol/L (21.0-32.0); Chloride 105 mmol/L (98-108); Creatinine, Serum 2.68 mg/dL (0.70-1.20); EST Glomerular Filtration Rate 27 (>60); Estimated Creatinine Clearance 26.77 ml/min (50-250); Glucose 85 mg/dL (70-99); Potassium 5.2 mmol/L (3.3-5.1); Pro- Brain NATRIURETIC PEPTIDE 30833 pg/mL (<=900); Sodium Level 139 mmol/L (133-145); Troponin T High Sensitivity 51 ng/L (<=22)
[2025-03-05 12:59] LABS: Troponin T High Sens 2 HR 77 ng/L (<=22)
[2025-03-05 14:45] LABS: Troponin T High Sens 4 HR 123 ng/L (<=22)
[2025-03-05] MEDS: 0.9% Normal Saline (500mL Bag) 500 ML 999 ML IV (15:48)
[2025-03-05] MEDS: Albuterol 2.5 MG/3 ML VIAL.NEB. INHALATION (16:45)
--- NOTE | 2025-03-05 17:22 | PCM.HP.STD ---
HPI - General General Date of Admission: 03/05/25 Date of Service: 03/05/25 Chief Complaint: Chest pain HPI Narrative MARIAN BARROSO, is a 55 M with past medical history of kidney transplant on chronic immunosuppression with tacrolimus, coronary artery disease s/p CABG, RCA lesion, on Plavix, A-fib on Eliquis, hypertension on losartan and metoprolol, COPD, DVT/PE, GERD, VIC who presents to the ED with concerns of ongoing chest pain for the last few hours Patient leads a very active lifestyle and walks around 8000-10,000 steps daily, since yesterday has been noticing some back pain and feeling tired, today morning while driving his car he noted some retrosternal fullness and chest pain and he wanted to visit the ED to evaluate the same. There was no associated perspiration, no recent exertion, the pain resolved on its own after a few minutes. He had a similar admission on 12/16/2024 for concerns of chest pain that was managed conservatively and he was transferred at the time to treatment clinic for further evaluation. He is also scheduled for outpatient follow-up by [facility] on Saturday for evaluation of his anginal symptoms. He has been previously informed that repeated catheterizations and contrast exposure may be worsening his CKD and he is worried regarding the same Today at the time of presentation to the ED blood pressure 156/72, pulse 71, respiratory rate 18, oxygen saturation 97%, satting well on room air WBC 6.7, hemoglobin 9.5, platelet count 79, D-dimer 0.4, sodium 139, potassium 5.2, creatinine 2.6 with BUN of 42 troponin T at presentation was 51, elevated to 77 and then 123 and 4 hours, NT proBNP [id number]. 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 Pulmonary embolism Neurogenic bladder Hyperparathyroidism Hyperhomocystinemia GERD (gastroesophageal reflux disease) DVT (deep venous thrombosis) Depression Claudication VIC (obstructive sleep apnea) Chronic obstructive pulmonary disease (COPD) Chronic kidney disease, stage 3 Home Medications ?Medication ?Instructions ?Recorded ?Last Taken ?Type atorvastatin 80 mg tablet 80 mg PO QHS cholesterol 12/30/17 03/04/25 History acetaminophen 500 mg tablet 1,000 mg PO Q8 PRN fever or pain 11/15/23 Unknown History ipratropium 0.5 mg-albuterol 3 mg 3 ml inhalation Q6H PRN wheezing 05/19/24 Unknown History (2.5 mg base)/3 mL nebulization soln apixaban 5 mg tablet 5 mg PO BID Blood Thinner 06/13/24 03/04/25 History cholecalciferol (vitamin D3) 50 100 mcg PO DAILY Supplement 11/08/24 03/04/25 History mcg (2,000 unit) capsule clopidogrel 75 mg tablet 75 mg PO DAILY Antiplatelet 11/08/24 03/04/25 History pantoprazole 40 mg tablet,delayed 40 mg PO DAILY Decrease stomach 11/08/24 03/04/25 History release acid tacrolimus 0.75 mg tablet,extended 1.5 mg PO DAILY Immunosuppressant 11/08/24 03/04/25 History release 24 hr (Envarsus XR) magnesium oxide 400 mg (241.3 mg 400 mg PO DAILY Supplement 12/16/24 03/04/25 History magnesium) tablet melatonin 5 mg tablet 5 mg PO QHS INSOMNIA 12/16/24 03/04/25 History prednisone 5 mg tablet 5 mg PO DAILY liver transplant 12/16/24 03/04/25 History albuterol sulfate 90 mcg/actuation 1 - 2 puff inhalation Q4H PRN 03/05/25 Unknown History aerosol inhaler Shortness Of Breath cefdinir 300 mg capsule 300 mg PO DAILY 03/05/25 03/04/25 History darbepoetin sridevi in polysorbat 60 6.25 mcg IV QWEEK 03/05/25 Unknown History mcg/0.3 mL in polysorbate injection syringe (Aranesp) doxazosin 8 mg tablet 8 mg PO QHS 03/05/25 03/04/25 History gabapentin 300 mg capsule 300 mg PO BID PRN NERVE PAIN 03/05/25 Unknown History isosorbide mononitrate 30 mg 30 mg PO DAILY 03/05/25 03/04/25 History tablet,extended release 24 hr losartan 25 mg tablet 25 mg PO DAILY 03/05/25 03/04/25 History metoprolol tartrate 25 mg tablet 25 mg PO BID 03/05/25 03/04/25 History sodium bicarbonate 650 mg tablet 1,300 mg PO BID 03/05/25 03/04/25 History trazodone 50 mg tablet 50 mg PO QHS 03/05/25 03/04/25 History Allergy/AdvReac Type Severity Reaction Status Date / Time propoxyphene napsylate (From Allergy Hives Verified 12/16/24 23:00 Darvocet-N) venom-honey bee (bee venom Allergy Hives Verified 12/16/24 23:00 (honey bee)) Family History Father Arthritis Cancer Lung cancer, 1990 CAD (coronary artery disease) Mother CAD (coronary artery disease) Diet 2012 Surgical History S/P femoral-femoral bypass surgery History of quadruple bypass S/P pericardial window creation (~1991) History of lung biopsy (~2007) Renal transplant recipient History of renal transplant Social History household members: spouse housing: house Smoking Status: Former smoker pack-years: 19 Tobacco: How many years used: 15 alcohol intake: never substance use type: does not use ROS Review of Systems ROS Unobtainable: Denies due to encephalopathy, due to endotracheal tube, due to mental condition, due to mental status or other Constitutional Constitutional: Denies anorexia, change in weight, chills, fatigue, fever(s), malaise, night sweats, weakness or other Eyes Eyes: Denies blurry vision, change in eye color, change in vision, discharge from eye(s), double vision, erythema, eye pain, loss of vision or other ENT HEENT: Denies abnormal hearing, dysphagia, ear pain, epistaxis, headache(s), hearing loss, nasal congestion, nasal discharge, post nasal drip, sinus pressure, sore throat or other Cardiovascular Cardiovascular: Reports chest pain; Denies claudication, dyspnea on exertion, edema, lightheadedness, orthopnea, palpitations, paroxysmal nocturnal dyspnea, rapid heart rate, syncope or other Respiratory/Chest Respiratory/Chest: Denies cough, dyspnea, excessive phlegm production, hemoptysis, productive cough, shortness of breath at rest, shortness of breath with exertion, wheezing or other Gastrointestinal Gastrointestinal: Denies abdominal pain, coffee ground emesis, constipation, diarrhea, dyspepsia, hematemesis, hematochezia, loose stools, melena, nausea, vomiting or other Genitourinary Genitourinary: Denies burning urination, difficulty urinating, dysuria, hematuria, nocturia, urinary frequency, urinary hesitancy, urinary incontinence, urinary urgency or other Musculoskeletal Musculoskeletal: Denies arthralgias, back pain, joint pain, joint stiffness, joint swelling, myalgias, neck pain or other Neurologic Neurologic: Denies abnormal gait, abnormal speech, confusion, disequilibrium, dizziness, focal weakness, headache(s), numbness, paresthesias, seizure-like activity, seizures, syncope, tingling, tremor(s) or other Psychiatric Psychiatric: Denies anxiety, depression, homicidal ideation, suicidal ideation or other Endocrine Endocrinology: Denies change in body appearance, cold intolerance, excessive sweating, heat intolerance, polydipsia, polyuria or other Hematologic/Lymphatic Hematologic/Lymphatic: Denies anemia, easy bleeding, easy bruising, lymphadenopathy or other Allergic/Immunologic Allergic/Immunologic: Denies rhinitis, hives, eczemia, asthma or other Vital Signs Vital Signs Vital Signs: 03/05/25 09:07 03/05/25 09:16 03/05/25 11:00 Temperature 97.9 F Temperature Source Oral Pulse Rate 103 H 54 L Respiratory Rate 18 Blood Pressure 122/71 H Blood Pressure Mean 88 Pulse Ox 97 97 96 Oxygen Delivery Method Room Air Room Air 03/05/25 12:00 03/05/25 13:00 03/05/25 14:00 Temperature Temperature Source Pulse Rate 60 56 L 53 L Respiratory Rate 18 13 18 Blood Pressure 122/82 H 130/69 H 130/78 H Blood Pressure Mean 95 89 95 Pulse Ox 98 98 98 Oxygen Delivery Method 03/05/25 15:00 03/05/25 16:00 03/05/25 16:39 Temperature 97.8 F Temperature Source Pulse Rate 64 62 59 L Respiratory Rate 15 14 18 Blood Pressure 128/77 H 137/63 H 140/78 H Blood Pressure Mean 94 86 98 Pulse Ox 94 95 98 Oxygen Delivery Method Room Air 03/05/25 16:46 03/05/25 17:00 Temperature Temperature Source Pulse Rate 61 71 Respiratory Rate 16 18 Blood Pressure 156/72 H Blood Pressure Mean 100 Pulse Ox 97 Oxygen Delivery Method Room Air Weight Weight: 138 lb 3.677 oz Body Mass Index (BMI) 23.0 Physical Exam Const alert, oriented x3 and no apparent distress HEENT normocephalic and head/scalp atraumatic Eyes PERRL Neck no lymphadenopathy and supple Resp normal respiratory effort and no retractions Cardio Cardio Narrative: Irregularly irregular, rate controlled GI normal to inspection, nondistended, normoactive bowel sounds Extremity normal to inspection Neuro oriented x3 and CN's II-XII intact bilaterally Psych affect normal Results Medical Records Data Attestation: I reviewed the patient's medical records Lab / Micro Data 03/05/25 09:50 03/05/25 09:50 Labs: Laboratory Results - last 24 hr 03/05/25 09:50: WBC 6.7, RBC 3.16 L, Hgb 9.5 L, Hct 29.2 L, MCV 92.4, MCH 30.1, MCHC 32.5, RDW Std Deviation 44.0 H, RDW Coeff of Adamaris 13.1, Plt Count 79 L, MPV 11.7, Immature Gran % (Auto) 0.500, Neut % (Auto) 64.2, Lymph % (Auto) 25.1, [place] % (Auto) 7.4, Eos % (Auto) 2.3, Baso % (Auto) 0.5, Absolute Neuts (auto) 4.3, Absolute Lymphs (auto) 1.67, Nucleated RBC % 0, D-Dimer Quant (PE/DVT) 0.43, Sodium 139, Potassium 5.2 H, Chloride 105, Carbon Dioxide 23.1, Anion Gap 11, BUN 42 H, Creatinine 2.68 H, Estim Creat Clear Calc 26.77 L, Est GFR (MDRD) Non-Af 27 L, BUN/Creatinine Ratio 15.6, Glucose 85, Calcium 9.9, Troponin T High Sens 51 H, [place] [address] H 03/05/25 11:58: Troponin T Hi Sens 2 Hr 77 H* 03/05/25 14:01: Troponin T Hi Sens 4Hr 123 H* Rhythm Strip Rhythm Strip: A-fib Rate: 100 Ectopy: None Imaging Radiology Impression Chest X-Ray 03/05/25 09:16 IMPRESSION: 1. Cardiomegaly with pulmonary congestion and edema. Superimposed pneumonia cannot be excluded. 2. Bilateral pleural effusions. Reading Location: [facility] Assessment & Plan Assessment/Plan (1) Chest pain: PLAN: Plan 55-year-old man with past medical history of coronary artery disease, A-fib on Eliquis, chronic thrombocytopenia, prior kidney transplant, now CKD stage III on transplanted kidney, presents to the ED with concern regarding ongoing chest pain with elevated troponin levels. He has an extensive history of ischemic heart disease and is being actively evaluated actually in the clinic. At this time his pain is much better controlled with conservative management, previously when he was being admitted at least Char plan for catheterization was deferred and he is scheduled for outpatient visit. He is being admitted under observation to PCU for overnight pain control if needed and monitoring his cardiac rhythm. Patient does not want any invasive evaluation at this time as he is already scheduled for follow-up at [facility] # NSTEMI - Has extensive history of coronary artery disease - Plan for outpatient evaluation at [facility] - Continue Plavix, atorvastatin, apixaban - Admit to PCU for telemetry monitoring - Continue isosorbide mononitrate - Close blood pressure monitoring - Cardiology consult # [place] on CKD - Mildly elevated creatinine, will start him on gentle fluid at the rate 75 cc/h for 5 hours - Repeat creatinine in the morning # Thrombocytopenia - Possibly medication associated - Continue to monitor # A-fib - Continue anticoagulation with apixaban, continue present medications - Rate controlled # COPD - normal respiratory exam at this time - continue home medications # GERD - continue home medications #Code - Full code #DVT prophylaxis - Already anticoagulated
[2025-03-05] MEDS: Gabapentin 300 MG Capsule PO (21:45)
[2025-03-05] MEDS: 0.9% Saline Lock 10 ML Syringe IV (21:45)
[2025-03-05] MEDS: Metoprolol Tartrate 25 MG Tablet PO (21:46)
[2025-03-05] MEDS: APIXABAN 5 MG TABLET PO (21:46)
[2025-03-05] MEDS: Acetaminophen 325 MG Tablet 650 MG PO (21:46)
[2025-03-05] MEDS: Sodium Bicarbonate 650 MG Tablet 1300 MG PO (21:46)
[2025-03-05] MEDS: Atorvastatin Calcium 80 MG Tablet PO (21:47)
[2025-03-05] MEDS: MELATONIN 10 MG TABLET 5 MG PO (21:47)
[2025-03-05] MEDS: Doxazosin 4 MG Tablet 8 MG PO (21:48)
[2025-03-06 04:00] VITALS: BP 119/61; PULSE 55; RESP 16; TEMP 36.2; O2SAT 95
[2025-03-06 05:18] LABS: Absolute Neutrophil Count 1.5 X10^3/uL (2.0-7.7); Basophil# 0.03 X10^3/uL; Basophil% 0.8 % (0-1); Eosinophil# 0.17 X10^3/uL; Eosinophils% 4.8 % (0-5); Hematocrit 29.2 % (40-54); Hemoglobin 9.3 g/dL (13.0-16.5); Mean Corp Hgb Conc 31.8 g/dL (32-36); Mean Corpuscular Volume 94.2 fL (80-94); Mean Platelet Vol. 12.1 fl (6.2-12.0); Monocyte# 0.33 X10^3/uL; Monocyte% 9.2 % (0-10); NRBC Flagged by Analyzer 0 % (0-5); Neutrophil # 1.53 X10^3/uL (2.7-7.7); Neutrophil % 42.9 % (47-70); POSITIVE COUNT YES; Platelet Count 78 K/mm3 (150-450); RBC Distribution Width CV 13.2 % (11.6-14.6); RBC Distribution Width SD 44.9 fl (35.1-43.9); White Blood Count 3.6 K/mm3 (4.4-11.0)
[2025-03-06 05:19] LABS: International Normalized Ratio 1.7; Prothrombin Time (Protime)PT. 20.2 SECONDS (11.7-14.9)
[2025-03-06 05:59] LABS: ALB/GLOB Ratio 1.9 RATIO (0.9-2.4); AST(SGOT) 39 U/L (<=37); Alanine Aminotransfer ALT/SGPT 39 U/L (<=46); Albumin, Serum 3.6 g/dL (3.5-5.0); Alkaline Phosphatase 110 U/L (40-129); Anion Gap 8 (5-15); BUN 44 mg/dL (4-19); BUN/Creat Ratio 16.7 RATIO (10-20); Bilirubin, Direct 0.34 mg/dL (0.00-0.30); Calcium,Total 9.3 mg/dL (7.6-11.0); Carbon Dioxide 23.2 mmol/L (21.0-32.0); Chloride 109 mmol/L (98-108); Creatinine, Serum 2.66 mg/dL (0.70-1.20); EST Glomerular Filtration Rate 27 (>60); Globulin 1.9 g/dL (2.2-4.2); Glucose 80 mg/dL (70-99); Magnesium 1.7 mg/dL (1.5-2.2); Phosphorus 3.7 mg/dL (2.7-4.5); Potassium 5.7 mmol/L (3.3-5.1); Protein, Total 5.5 g/dL (5.9-8.4); Sodium Level 140 mmol/L (133-145); Total Bilirubin 0.74 mg/dL (0.00-1.30)
--- NOTE | 2025-03-06 07:42 | ECHOD_ITS ---
Reason For Study Reason For Study: CHEST PAIN Procedure This was a 2D Doppler, Color Flow transthoracic echocardiogram. The patient was scanned supine. Exam performed portable in patient room. Left Ventricle Mildly dilated left ventricle. The estimated ejection fraction is 40-45 %. Right Ventricle Normal right ventricle. Normal systolic function. Atria The left atrium is mildly enlarged. Normal right atrium. Mitral Valve There is mild mitral annular calcification. Mild (1+) mitral valve insufficiency. Tricuspid Valve Normal tricuspid valve. Mild tricuspid valve insufficiency. Aortic Valve Mild diffuse aortic valve calcification. Mild (1+) eccentric aortic valve insufficiency. Pulmonic Valve The pulmonic valve is not well visualized. Great Vessels The aortic root is not well visualized. Pericardium/Pleural No pericardial effusion. MMode/2D Measurements & Calculations LVIDd: 6.4 cm IVSd: 1.2 cm LVOT diam: 2.0 cm LVIDs: 4.9 cm LVPWd: 1.3 cm LVOT area: 3.3 cm2 RVDd: 4.2 cm FS: 24.0 % asc Aorta Diam: 3.8 cm LAV(MOD-bp): 55.2 ml LVAd ap4: 35.6 cm2 LAV(MOD-bp) Indexed: 33.3 ml/m2 LVLd ap4: 8.6 cm LAV(MOD-sp2): 59.3 ml EDV(MOD-sp4): 123.8 ml LAV(MOD-sp4): 48.1 ml EDV(sp4-el): 125.4 ml LVAs ap4: 24.0 cm2 LVLs ap4: 7.7 cm ESV(MOD-sp4): 68.1 ml ESV(sp4-el): 63.4 ml EF(MOD-sp4): 45.0 % EF(sp4-el): 49.4 % LVAd ap2: 39.5 cm2 SV(MOD-sp4): 55.7 ml SV(MOD-sp2): 57.7 ml LVLd ap2: 9.0 cm SI(MOD-sp4): 33.6 ml/m2 SI(MOD-sp2): 34.8 ml/m2 EDV(MOD-sp2): 150.3 ml EDV(sp2-el): 146.9 ml LVAs ap2: 29.5 cm2 LVLs ap2: 8.2 cm ESV(MOD-sp2): 92.6 ml ESV(sp2-el): 89.8 ml EF(MOD-sp2): 38.4 % SV(sp4-el): 62.0 ml Ao sinus diam: 3.[address] Junction: 2.5 cm LA dimension(2D): 4.9 cm LA A4 area: 18.1 cm2 RA A4 area: 14.7 cm2 TAPSE: 1.6 cm Time Measurements MV dec time: 0.19 sec Doppler Measurements & Calculations MV E max salazar: 95.9 cm/sec Lat Peak E' Salazar: 3.9 cm/sec Med Peak E' Salazar: 3.5 cm/sec MV A max salazar: 57.1 cm/sec E/E' lat: 24.6 E/E' med: 27.3 MV E/A: 1.7 MV dec slope: 500.4 cm/sec2 Ao V2 max: 202.8 cm/sec AI max salazar: 463.5 cm/sec Ao max P.5 mmHg AI max P.9 mmHg Ao V2 mean: 137.3 cm/sec AI dec slope: 278.5 cm/sec2 Ao mean P.5 mmHg AI P1/2t: 487.5 msec Ao V2 VTI: 45.9 cm AV (velocity ratio): 0.64 JACOBY(I,D): 2.1 cm2 JACOBY(V,D): 2.1 cm2 LV V1 max: 131.8 cm/sec SV(LVOT): 97.3 ml PA V2 max: 110.7 cm/sec LV V1 max P.9 mmHg LV V1 mean P.9 mmHg LV V1 mean: 94.0 cm/sec LV V1 VTI: 29.5 cm TR max salazar: 297.2 cm/sec TR max P.3 mmHg ECHO/Echo Complete Interpretation Summary The estimated ejection fraction is 40-45 %. Moderate LV systolic Dysfunction Mild MR mild TR Mild AI No significant changes from previous TTE Ordering Physician: Oswaldo Capellan Performed By: Zayda Weathers RDCS
[2025-03-06 09:02] VITALS: BP 125/55; PULSE 57; RESP 18; O2SAT 95
[2025-03-06 09:05] VITALS: BP 125/55; PULSE 57
[2025-03-06] MEDS: Isosorbide Mononitrate 30 MG Tablet PO (09:05)
[2025-03-06] MEDS: APIXABAN 5 MG TABLET PO ×2 (09:05→21:37)
[2025-03-06] MEDS: predniSONE 5 MG Tablet PO (09:05)
[2025-03-06] MEDS: Metoprolol Tartrate 25 MG Tablet PO ×2 (09:05→21:38)
[2025-03-06] MEDS: Cefdinir 300 MG Capsule PO (09:05)
[2025-03-06] MEDS: Clopidogrel Bisulfate 75 MG Tablet PO (09:05)
[2025-03-06] MEDS: Sodium Bicarbonate 650 MG Tablet 1300 MG PO ×2 (09:05→21:37)
[2025-03-06] MEDS: Pantoprazole Sodium 40 MG Tablet PO (09:06)
[2025-03-06] MEDS: Furosemide 100 MG/10 ML Vial 60 MG IV ×2 (09:26→18:29)
--- NOTE | 2025-03-06 09:56 | PN.HOSP_ITS ---
Reason for Visit Reason for Visit: Diagnoses Chest pain, unspecified (03/05/25) Subjective Subjective Saw patient at bedside this morning. Patient was sitting back comfortably in bed, conversing normally, in no acute distress. He was breathing comfortably on room air at rest. Did note that recently he has noticed some lower extremity swelling and what he feels has been some chest heaviness. Reports a mild nonproductive cough intermittently. States he has required Lasix in the past for fluid overload primarily related to his kidney disease. No other new concerns today. Objective Data Objective Data Vital Signs: Vital Signs Temp Pulse Resp BP Pulse Ox O2 Del Method 97.2 F L 57 L 18 125/55 H 95 Room Air 03/06/25 04:00 03/06/25 09:05 03/06/25 09:02 03/06/25 09:05 03/06/25 09:02 03/06/25 09:02 Oxygen Delivery Method Room Air Weight: 60.2 kg Body Mass Index (BMI) 22.1 Intake & Output: Intake and Output for Last 24 Hours 03/04/25 03/05/25 03/06/25 23:59 23:59 23:59 Intake Total 500 / 500 Output Total 450 / 450 Balance 500 / 225 -450 / -450 Lab / Micro Data 03/06/25 04:26 03/06/25 04:26 Labs: Laboratory Results - last 24 hr 03/05/25 09:50: WBC 6.7, RBC 3.16 L, Hgb 9.5 L, Hct 29.2 L, MCV 92.4, MCH 30.1, MCHC 32.5, RDW Std Deviation 44.0 H, RDW Coeff of Adamaris 13.1, Plt Count 79 L, MPV 11.7, Immature Gran % (Auto) 0.500, Neut % (Auto) 64.2, Lymph % (Auto) 25.1, [place] % (Auto) 7.4, Eos % (Auto) 2.3, Baso % (Auto) 0.5, Absolute Neuts (auto) 4.3, Absolute Lymphs (auto) 1.67, Nucleated RBC % 0, D-Dimer Quant (PE/DVT) 0.43, Sodium 139, Potassium 5.2 H, Chloride 105, Carbon Dioxide 23.1, Anion Gap 11, BUN 42 H, Creatinine 2.68 H, Estim Creat Clear Calc 26.77 L, Est GFR (MDRD) Non-Af 27 L, BUN/Creatinine Ratio 15.6, Glucose 85, Calcium 9.9, Troponin T High Sens 51 H, [place] [address] H 03/05/25 11:58: Troponin T Hi Sens 2 Hr 77 H* 03/05/25 14:01: Troponin T Hi Sens 4Hr 123 H* 03/06/25 04:26: WBC 3.6 L, RBC 3.10 L, Hgb 9.3 L, Hct 29.2 L, MCV 94.2 H, MCH 30.0, MCHC 31.8 L, RDW Std Deviation 44.9 H, RDW Coeff of Adamaris 13.2, Plt Count 78 L, MPV 12.1 H, Immature Gran % (Auto) 0.300, Neut % (Auto) 42.9 L, Lymph % (Auto) 42.0 H, [place] % (Auto) 9.2, Eos % (Auto) 4.8, Baso % (Auto) 0.8, Absolute Neuts (auto) 1.5 L, Absolute Lymphs (auto) 1.50, Nucleated RBC % 0, PT 20.2 H, INR 1.7, Sodium 140, Potassium 5.7 H, Chloride 109 H, Carbon Dioxide 23.2, Anion Gap 8, BUN 44 H, Creatinine 2.66 H, Estim Creat Clear Calc 26.40 L, Est GFR (MDRD) Non-Af 27 L, BUN/Creatinine Ratio 16.7, Glucose 80, Calcium 9.3, Phosphorus 3.7, Magnesium 1.7, Total Bilirubin 0.74, Direct Bilirubin 0.34 H, A ST 39 H, ALT 39, Alkaline Phosphatase 110, Total Protein 5.5 L, Albumin 3.6, G lobulin 1.9 L, Albumin/Globulin Ratio 1.9, TSH 1.750 Radiography Diagnostic Testing: Radiology Impression Chest X-Ray 03/05/25 09:16 IMPRESSION: 1. Cardiomegaly with pulmonary congestion and edema. Superimposed pneumonia cannot be excluded. 2. Bilateral pleural effusions. Reading Location: [facility] Rhythm Strip Rhythm Strip: A-fib Rate: 100 Ectopy: None Physical Exam Const alert, oriented x3, no apparent distress and average body habitus Constitutional Narrative: Pleasant middle-age male, mildly fatigued appearing but otherwise sitting back comfortably in bed, conversing normally, in no acute distress. General Appearance: cooperative and comfortable HEENT normocephalic, head/scalp atraumatic, hearing grossly normal bilaterally, nasal mucous membranes and turbinates normal and moist oral mucous membranes Eyes PERRL, EOMs intact bilaterally and conjunctivae normal Neck full ROM Chest inspection of chest normal Resp normal respiratory effort and no use of accessory muscles Resp Narrative: Breathing comfortably on room air at rest. Mildly decreased breath sounds with mild crackles noted at bilateral lung bases, otherwise good air movement throughout with no wheezing noted. Cardio regular rate, regular rhythm, no murmurs and peripheral pulses 2+ throughout GI normal to inspection, nondistended, normoactive bowel sounds, soft to palpation, non-tender and non-distended Back/Spine normal ROM Extremity full ROM Extremity Narrative: Trace to +1 lower extremity edema noted. Skin no rashes or lesions noted Psych mental status grossly normal Assessment & Plan Assessment/Plan (1) Acute heart failure with preserved ejection fraction (HFpEF): PLAN: Plan Patient is a 55-year-old male who presented to [facility] ED on 03/05/2025 with chest discomfort. 1. Acute HFpEF with elevated troponin levels, concern for community-acquired pneumonia ? Presented with worsening chest discomfort. EKG showed rate controlled A-fib with bifascicular block, no ST changes noted. Troponin trend 51 > 77 > 123. BNP greater than 30,000. Chest x-ray showed cardiomegaly with pulmonary congestion and edema with bilateral pleural effusions; superimposed pneumonia cannot be excluded. Last echo in 05/30 showed EF 50%, stage II diastolic dysfunction, no other significant abnormalities. Presentation seems most consistent with volume overload secondary to HFpEF exacerbation in setting of CKD stage IV as noted below. Repeat echo ordered. Will treat with IV Lasix 60 mg twice daily for now. Will also treat with p.o. cefdinir for concern for pneumonia for now. 2. Mild creatinine elevation in setting of CKD stage IV, history of renal transplant x 2 ? Creatinine 2.6 on admit, baseline around 2.1-2.3. Suspect secondary to mild cardiorenal syndrome in setting of acute HFpEF as above. Treated with IV Lasix as above. Monitor daily BMP and urine output. Continue home tacrolimus, prednisone and sodium bicarbonate tablets. 3. Mild hyperkalemia ? Potassium 5.7 on hospital day 2. No hyperkalemia changes on EKG on admit. Presume secondary to mild creatinine elevation and acute HFpEF as above. Treating with IV Lasix as above. Monitor daily potassium level. 4. Atrial fibrillation, history of CAD with CABG, hypertension, hyperlipidemia, history of DVT/PE ? Follows with outpatient cardiology. Has been in rate controlled A-fib since admission. Blood pressure has been stable. Continue home Eliquis, statin, Plavix, Imdur and Lopressor. Holding losartan for now. Chronic medical conditions: ? Chronic anemia of renal disease: Hemoglobin stable at baseline around 9-10 since admission. ? COPD: Stable on room air at rest, not in acute exacerbation. Continue home inhalers. ? BPH with obstructive symptoms: Stable. Continue home doxazosin at night. ? GERD: Continue home PPI. DVT prophylaxis: Not indicated, on Eliquis CODE STATUS: Full code, verified Expected disposition: Home, 1 to 2 days Total clinical time spent by myself addressing the patient's medical issues, reviewing all the data, and collaborating with patient's care team: 35 minutes. Charges/Coding Visit Charges Inpatient E&M: 54686 Subs Hosp L2
--- NOTE | 2025-03-06 14:17 | PN.CARD_ITS ---
Subjective Subjective I saw this patient today at bedside at bedside at time of evaluation Lying in bed comfortable does not have any active chest pain. Objective Data Vital Signs: Vital Signs Temp Pulse Resp BP Pulse Ox O2 Del Method 97.2 F L 57 L 18 125/55 H 95 Room Air 03/06/25 04:00 03/06/25 09:05 03/06/25 09:02 03/06/25 09:05 03/06/25 09:02 03/06/25 09:02 Oxygen Delivery Method Room Air Weight: 132 lb 11.492 oz Body Mass Index (BMI) 22.1 Intake & Output: Intake and Output for Last 24 Hours 03/04/25 03/05/25 03/06/25 23:59 23:59 23:59 Intake Total 500 / 500 Output Total 450 / 450 Balance 500 / 225 -450 / -450 Lab / Micro Data 03/06/25 04:26 03/06/25 04:26 Labs: Laboratory Results - last 24 hr 03/05/25 14:01: Troponin T Hi Sens 4Hr 123 H* 03/06/25 04:26: WBC 3.6 L, RBC 3.10 L, Hgb 9.3 L, Hct 29.2 L, MCV 94.2 H, MCH 30.0, MCHC 31.8 L, RDW Std Deviation 44.9 H, RDW Coeff of Adamaris 13.2, Plt Count 78 L, MPV 12.1 H, Immature Gran % (Auto) 0.300, Neut % (Auto) 42.9 L, Lymph % (Auto) 42.0 H, Lamb % (Auto) 9.2, Eos % (Auto) 4.8, Baso % (Auto) 0.8, Absolute Neuts (auto) 1.5 L, Absolute Lymphs (auto) 1.50, Nucleated RBC % 0, PT 20.2 H, INR 1.7, Sodium 140, Potassium 5.7 H, Chloride 109 H, Carbon Dioxide 23.2, Anion Gap 8, BUN 44 H, Creatinine 2.66 H, Estim Creat Clear Calc 26.40 L, Est GFR (MDRD) Non-Af 27 L, BUN/Creatinine Ratio 16.7, Glucose 80, Calcium 9.3, Phosphorus 3.7, Magnesium 1.7, Total Bilirubin 0.74, Direct Bilirubin 0.34 H, A ST 39 H, ALT 39, Alkaline Phosphatase 110, Total Protein 5.5 L, Albumin 3.6, G lobulin 1.9 L, Albumin/Globulin Ratio 1.9, TSH 1.750 Rhythm Strip Rhythm Strip: A-fib Rate: 100 Ectopy: None Cardiology Labs/Tests 03/06/25 04:26: WBC 3.6 L, RBC 3.10 L, Hgb 9.3 L, Hct 29.2 L, MCV 94.2 H, MCH 30.0, MCHC 31.8 L, Plt Count 78 L, MPV 12.1 H, Immature Gran % (Auto) 0.300, N eut % (Auto) 42.9 L, Lymph % (Auto) 42.0 H, Lamb % (Auto) 9.2, Eos % (Auto) 4.8, Baso % (Auto) 0.8, Absolute Neuts (auto) 1.5 L, Nucleated RBC % 0, PT 20.2 H, INR 1.7, Sodium 140, Potassium 5.7 H, Chloride 109 H, Carbon Dioxide 23.2, Anion Gap 8, BUN 44 H, Creatinine 2.66 H, Est GFR (MDRD) Non-Af 27 L, BUN/Creatinine Ratio 16.7, Glucose 80, Calcium 9.3, Phosphorus 3.7, Magnesium 1.7, Total Bilirubin 0.74, Direct Bilirubin 0.34 H Rhythm: EKG: ECHO: Stress Test: Cardiac Cath: PCI: CT Surgery: Holter monitor: EPS: PPM: CXR: Chest CT Scan: Radiography Diagnostic Testing: Radiology Impression Echocardiogram 03/06/25 07:42 Interpretation Summary The estimated ejection fraction is 40-45 %. Moderate LV systolic Dysfunction Mild MR mild TR Mild AI No significant changes from previous TTE Ordering Physician: Oswaldo Capellan Performed By: Zayda Weathers RDCS Physical Exam Cardio Cardio Narrative: Patient alert orientated x 3. Not in apparent distress Review of merchandise stocker revealed A-fib with controlled ventricular rate Cardiac exam S1-S2 is irregular Chest exam diminished air entry bilateral with mild bilateral inspiratory rales Mild bilateral lower extremity edema noted. 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 His creatinine level is elevated to 2.6. Also patient has a anemia which is chronic. Paroxysmal atrial fibrillation. Repeat echocardiogram on this admission revealed evidence of moderate LV systolic dysfunction Ejection fraction calculated in the range of 40-45%. Cardiac care plan; I reviewed and discussed his current medication which include anticoagulation OAC with apixaban for paroxysmal A-fib As he is high risk for stroke based on [id number] score more than 4 In addition he is on rate control for atrial fibrillation using beta-hong metoprolol Antianginal medication including isosorbide mononitrate and recommend as an outpatient to add Rimacillin. He was told at the [facility] no further attempt for the BUSINESS DEVELOPMENT SALES EXECUTIVE of RCA. The high risk because of worsening of his renal function with the renal transplant therefore no further cardiac catheterization will be required here at [facility]. I did recommended to maximize his medical therapy to continue on OAC. And to follow-up with his primary ink technician in the [facility]. From cardiac standpoint we will sign off will be available if further cardiac needs arise.
[2025-03-06] MEDS: TACROLIMUS 0.75 MG 1.5 MG PO (18:28)
[2025-03-06 20:10] VITALS: BP 127/58; PULSE 64; RESP 18; TEMP 36.9; O2SAT 99
[2025-03-06] MEDS: Atorvastatin Calcium 80 MG Tablet PO (21:37)
[2025-03-06] MEDS: Doxazosin 4 MG Tablet 8 MG PO (21:37)
[2025-03-06 21:38] VITALS: PULSE 61
[2025-03-06] MEDS: MELATONIN 10 MG TABLET 5 MG PO (21:39)
[2025-03-07] VITALS (7 sets, daily range): BP systolic 116–134; BP diastolic 49–60; PULSE 55–60; RESP 15–18; TEMP 36.5–37.1; O2SAT 95–98
[2025-03-07 04:58] LABS: Hematocrit 28.1 % (40-54); Mean Corpuscular Hgb 29.8 pg (27.0-32.0); Mean Platelet Vol. 11.7 fl (6.2-12.0); POSITIVE COUNT YES; Platelet Count 85 K/mm3 (150-450); RBC Distribution Width CV 12.9 % (11.6-14.6); RBC Distribution Width SD 44.2 fl (35.1-43.9); Red Blood Count 3.02 M/mm3 (4.6-6.2); White Blood Count 6.1 K/mm3 (4.4-11.0)
[2025-03-07 05:54] LABS: Anion Gap 10 (5-15); BUN 44 mg/dL (4-19); BUN/Creat Ratio 16.7 RATIO (10-20); Calcium,Total 9.1 mg/dL (7.6-11.0); Carbon Dioxide 24.6 mmol/L (21.0-32.0); Chloride 105 mmol/L (98-108); Creatinine, Serum 2.65 mg/dL (0.70-1.20); EST Glomerular Filtration Rate 27 (>60); Glucose 91 mg/dL (70-99); Potassium 5.3 mmol/L (3.3-5.1); Sodium Level 139 mmol/L (133-145)
--- NOTE | 2025-03-07 07:51 | EKG12_ITS ---
Test Reason : CP Blood Pressure : */* mmHG Vent. Rate : 56 BPM Atrial Rate : 56 BPM P-R Int : 142 ms QRS Dur : 140 ms QT Int : 472 ms P-R-T Axes : 61 -70 145 degrees QTcB Int : 455 ms Sinus bradycardia Right bundle branch block Left anterior fascicular block Bifascicular block T wave abnormality, consider lateral ischemia Abnormal ECG When compared with ECG of 05-Mar-2025 09:09, MANUAL COMPARISON REQUIRED DATA IS UNCONFIRMED Confirmed by Celso Byrd ([id number]), acquisition editor EDSON PEREIRA ([id number]) on 03/09/2025 8:01:09 AM Referred By: Confirmed By: Celso Byrd
--- NOTE | 2025-03-07 08:43 | PCM.PN.HOSP ---
Reason for Visit Reason for Visit: Diagnoses Atherosclerotic heart disease of [place] coronary artery without angina pectoris (03/05/25) Endocarditis, valve unspecified (03/05/25) Paroxysmal atrial fibrillation (03/05/25) Acute diastolic (congestive) heart failure (03/05/25) Other ill-defined heart diseases (03/05/25) Chest pain, unspecified (03/05/25) Subjective Subjective Saw patient at bedside this morning. Patient appeared similar today to yesterday. Noted that he has had significant urine output since yesterday and feels slightly less chest pressure that he did over the previous few days. Otherwise denies any chest pain or shortness of breath at rest today. No other new concerns this morning. Objective Data Objective Data Vital Signs: Vital Signs Temp Pulse Resp BP Pulse Ox O2 Del Method 97.7 F L 55 L 16 116/59 L 95 Room Air 03/07/25 02:42 03/07/25 02:42 03/07/25 02:42 03/07/25 02:42 03/07/25 02:42 03/07/25 02:42 Oxygen Delivery Method Room Air Weight: 60.2 kg Body Mass Index (BMI) 22.1 Intake & Output: Intake and Output for Last 24 Hours 03/05/25 03/06/25 03/07/25 23:59 23:59 23:59 Intake Total 500 / 500 Output Total 2525 / 2525 Balance 500 / 225 -2525 / -2525 Lab / Micro Data 03/07/25 04:20 03/07/25 04:20 Labs: Laboratory Results - last 24 hr 03/07/25 04:20: WBC 6.1, RBC 3.02 L, Hgb 9.0 L, Hct 28.1 L, MCV 93.0, MCH 29.8, MCHC 32.0, RDW Std Deviation 44.2 H, RDW Coeff of Adamaris 12.9, Plt Count 85 L, MPV 11.7, Sodium 139, Potassium 5.3 H, Chloride 105, Carbon Dioxide 24.6, Anion Gap 10, BUN 44 H, Creatinine 2.65 H, Estim Creat Clear Calc 26.50 L, Est GFR (MDRD) Non-Af 27 L, BUN/Creatinine Ratio 16.7, Glucose 91, Calcium 9.1 Radiography Diagnostic Testing: Radiology Impression Echocardiogram 03/06/25 07:42 Interpretation Summary The estimated ejection fraction is 40-45 %. Moderate LV systolic Dysfunction Mild MR mild TR Mild AI No significant changes from previous TTE Ordering Physician: Oswaldo Capellan Performed By: Zayda Weathers RDCS Rhythm Strip Rhythm Strip: A-fib Rate: 100 Ectopy: None Physical Exam Const alert, oriented x3, no apparent distress and average body habitus Constitutional Narrative: Pleasant middle-age male, mildly fatigued appearing but otherwise sitting back comfortably in bed, conversing normally, in no acute distress. Stable. General Appearance: cooperative and comfortable HEENT normocephalic, head/scalp atraumatic, hearing grossly normal bilaterally, nasal mucous membranes and turbinates normal and moist oral mucous membranes Eyes PERRL, EOMs intact bilaterally and conjunctivae normal Neck full ROM Chest inspection of chest normal Resp normal respiratory effort and no use of accessory muscles Resp Narrative: Breathing comfortably on room air at rest. Mildly decreased breath sounds at bilateral lung bases but no crackles noted, otherwise good air movement throughout with no wheezing noted. Improving. Cardio regular rate, regular rhythm, no murmurs and peripheral pulses 2+ throughout GI normal to inspection, nondistended, normoactive bowel sounds, soft to palpation, non-tender and non-distended Back/Spine normal ROM Extremity full ROM Extremity Narrative: Trace lower extremity edema noted. Skin no rashes or lesions noted Psych mental status grossly normal Assessment & Plan Assessment/Plan (1) Acute heart failure with preserved ejection fraction (HFpEF): PLAN: Plan Patient is a 55-year-old male who presented to [facility] ED on 03/05/2025 with chest discomfort. 1. Acute HFpEF with elevated troponin levels, concern for community-acquired pneumonia ? Cardiology evaluated. Presented with worsening chest discomfort. EKG showed rate controlled A-fib with bifascicular block, no ST changes noted. Troponin trend 51 > 77 > 123. BNP greater than 30,000. Chest x-ray showed cardiomegaly with pulmonary congestion and edema with bilateral pleural effusions; superimposed pneumonia cannot be excluded. Last echo in 05/30 showed EF 50%, stage II diastolic dysfunction, no other significant abnormalities. Presentation seems most consistent with volume overload secondary to HFpEF exacerbation in setting of CKD stage IV as noted below. Repeat echo on 03/06 showed EF 40 to 45%, no significant valvular issues, no other significant abnormalities; cardiology noted that this echo appears essentially stable from previous. Will continue to treat with IV Lasix 60 mg twice daily for today and plan to de-escalate to p.o. Lasix tomorrow in preparation for discharge home. Okay to continue p.o. cefdinir for concern for pneumonia and plan to treat for 5 to 7 days total. 2. Mild creatinine elevation in setting of CKD stage IV, history of renal transplant x 2 ? Creatinine 2.6 on admit, baseline around 2.1-2.3. Suspect secondary to mild cardiorenal syndrome in setting of acute HFpEF as above. Treated with IV Lasix as above. Monitor daily BMP and urine output. Continue home tacrolimus, prednisone and sodium bicarbonate tablets. 3. Mild hyperkalemia, improving ? Potassium 5.7 on hospital day 2. No hyperkalemia changes on EKG on admit. Presume secondary to mild creatinine elevation and acute HFpEF as above. Treating with IV Lasix as above. Most recent potassium 5.3 on 03/07. Monitoring daily BMP as above. 4. Atrial fibrillation, history of CAD with CABG, hypertension, hyperlipidemia, history of DVT/PE ? Follows with outpatient cardiology. Has been in rate controlled A-fib since admission. Blood pressure has been stable. Continue home Eliquis, statin, Plavix, Imdur and Lopressor. Holding losartan for now. Chronic medical conditions: ? Chronic anemia of renal disease: Hemoglobin stable at baseline around 9-10 since admission. ? COPD: Stable on room air at rest, not in acute exacerbation. Continue home inhalers. ? BPH with obstructive symptoms: Stable. Continue home doxazosin at night. ? GERD: Continue home PPI. DVT prophylaxis: Not indicated, on Eliquis CODE STATUS: Full code, verified Expected disposition: Home, 1 to 2 days Total clinical time spent by myself addressing the patient's medical issues, reviewing all the data, and collaborating with patient's care team: 35 minutes. Charges/Coding Visit Charges Inpatient E&M: 08992 Subs Hosp L2
[2025-03-07] MEDS: TACROLIMUS 0.75 MG 1.5 MG PO (09:30)
[2025-03-07] MEDS: Isosorbide Mononitrate 30 MG Tablet PO (09:31)
[2025-03-07] MEDS: Cefdinir 300 MG Capsule PO (09:32)
[2025-03-07] MEDS: predniSONE 5 MG Tablet PO (09:32)
[2025-03-07] MEDS: Pantoprazole Sodium 40 MG Tablet PO (09:33)
[2025-03-07] MEDS: Clopidogrel Bisulfate 75 MG Tablet PO (09:33)
[2025-03-07] MEDS: Furosemide 100 MG/10 ML Vial 60 MG IV ×2 (09:33→14:30)
[2025-03-07] MEDS: APIXABAN 5 MG TABLET PO ×2 (09:34→21:23)
[2025-03-07] MEDS: Sodium Bicarbonate 650 MG Tablet 1300 MG PO ×2 (09:35→21:23)
[2025-03-07] MEDS: Gabapentin 300 MG Capsule PO (21:23)
[2025-03-07] MEDS: MELATONIN 10 MG TABLET 5 MG PO (21:23)
[2025-03-07] MEDS: Doxazosin 4 MG Tablet 8 MG PO (21:24)
[2025-03-07] MEDS: Metoprolol Tartrate 25 MG Tablet PO (21:24)
[2025-03-07] MEDS: Atorvastatin Calcium 80 MG Tablet PO (21:25)
[2025-03-08 03:15] VITALS: BP 123/59; PULSE 54; RESP 14; TEMP 36.6; O2SAT 95
[2025-03-08 04:59] LABS: Hematocrit 29.8 % (40-54); Hemoglobin 9.5 g/dL (13.0-16.5); Mean Corp Hgb Conc 31.9 g/dL (32-36); Mean Corpuscular Hgb 29.7 pg (27.0-32.0); Mean Corpuscular Volume 93.1 fL (80-94); Mean Platelet Vol. 11.8 fl (6.2-12.0); POSITIVE COUNT YES; Platelet Count 89 K/mm3 (150-450); RBC Distribution Width CV 12.7 % (11.6-14.6); RBC Distribution Width SD 43.9 fl (35.1-43.9); White Blood Count 7.1 K/mm3 (4.4-11.0)
[2025-03-08 05:23] LABS: Anion Gap 10 (5-15); BUN 49 mg/dL (4-19); BUN/Creat Ratio 17.9 RATIO (10-20); Carbon Dioxide 25.8 mmol/L (21.0-32.0); Chloride 102 mmol/L (98-108); Creatinine, Serum 2.76 mg/dL (0.70-1.20); EST Glomerular Filtration Rate 26 (>60); Estimated Creatinine Clearance 25.45 ml/min (50-250); Glucose 121 mg/dL (70-99); Potassium 5.2 mmol/L (3.3-5.1); Sodium Level 138 mmol/L (133-145)
[2025-03-08 09:00] VITALS: BP 128/59; PULSE 55; RESP 14; TEMP 36.6; O2SAT 96
[2025-03-08] MEDS: TACROLIMUS 0.75 MG 1.5 MG PO (09:02)
[2025-03-08] MEDS: predniSONE 5 MG Tablet PO (09:02)
[2025-03-08] MEDS: APIXABAN 5 MG TABLET PO (09:02)
[2025-03-08] MEDS: Isosorbide Mononitrate 30 MG Tablet PO (09:03)
[2025-03-08 09:04] VITALS: PULSE 55
[2025-03-08] MEDS: Clopidogrel Bisulfate 75 MG Tablet PO (09:04)
[2025-03-08] MEDS: Pantoprazole Sodium 40 MG Tablet PO (09:04)
[2025-03-08] MEDS: Cefdinir 300 MG Capsule PO (09:04)
[2025-03-08] MEDS: Sodium Polystyrene Sulfonate 15 GM/60 ML UDC 30 GM PO (09:27)
[2025-03-08] MEDS: Furosemide 20 MG Tablet 60 MG PO (09:27)
[2025-03-08 11:26] VITALS: BP 144/52; PULSE 62; RESP 16; TEMP 36.4; O2SAT 99
--- NOTE | 2025-03-08 11:26 | DCINST_ITS ---
Discharge Instructions Diet Discharge Diet: Low fat / Low cholesterol DC O2, CPAP, BIPAP needs Home O2 Discharge instructions: No Dressing / Incision Weight Bearing Status: Weight bearing as tolerated Dressing / Incision Call your doctor if you observe: Fever of 101 or Higher, Shortness of breath, Dizziness and Swelling in the ankles Follow Up Care Test Results: Test results from this visit will be discussed in further detail at your follow- up appointment, if applicable. Discharge Plan Admission Admit Date/Time: 03/05/25 17:18 Primary Reason for Your Visit: acute hFpEF, pneumonia Attending Provider: Kiley Irwin Primary Care Provider: Melissa Judd Consulting Providers: Alma Gardner; Stanford Roman; Oswaldo Capellan Instructions Patient Instructions: Coping with Heart Failure Additional Instructions / Restrictions: follow up with your commercial carpet installer at [facility] within one week as scheduled. Discharge Orders/Prescriptions Prescriptions: New cefdinir 300 mg Capsule 300 mg PO DAILY Qty: 4 0RF furosemide [Lasix] 20 mg tablet 60 mg PO DAILY 30 Days Qty: 90 2RF Continued atorvastatin 80 MG tablet 80 mg PO QHS Patient Comments: acetaminophen 500 MG tablet 1,000 mg PO Q8 PRN (Reason: fever or pain) ipratropium-albuterol 0.5 mg-3 mg(2.5 mg base)/3 mL solution for nebulization 3 ml inhalation Q6H PRN (Reason: wheezing) Envarsus XR 0.75 mg tablet extended release 24 hr 1.5 mg PO DAILY cholecalciferol (vitamin D3) 50 mcg (2,000 unit) capsule 100 mcg PO DAILY clopidogrel 75 mg tablet 75 mg PO DAILY pantoprazole 40 mg tablet,delayed release (DR/EC) 40 mg PO DAILY Aranesp (in polysorbate) 60 mcg/0.3 mL syringe 6.25 mcg IV QWEEK Patient Comments: PT DOESNT TAKE DUE TO EXPENSE doxazosin 8 mg tablet 8 mg PO QHS gabapentin 300 mg capsule 300 mg PO BID PRN (Reason: NERVE PAIN) trazodone 50 mg tablet 50 mg PO QHS isosorbide mononitrate 30 mg tablet extended release 24 hr 30 mg PO DAILY sodium bicarbonate 650 mg tablet 1,300 mg PO BID losartan 25 mg tablet 25 mg PO DAILY metoprolol tartrate 25 mg tablet 25 mg PO BID albuterol sulfate 1 INHALER inhaler 1 - 2 puff inhalation Q4H PRN (Reason: Shortness Of Breath) apixaban 5 mg tablet 5 mg PO BID prednisone 5 mg tablet 5 mg PO DAILY magnesium oxide 400 mg (241.3 mg magnesium) tablet 400 mg PO DAILY melatonin 5 mg tablet 5 mg PO QHS Discontinued cefdinir 300 mg capsule 300 mg PO DAILY Referrals / Follow Up: Melissa Judd, STRETCHER OPERATOR [Primary Care Provider] - Within 1 Week Disposition Disposition (needs filled in before D/C Order can be placed): Home, Self Care
--- NOTE | 2025-03-08 11:28 | PCM.DC.SUM ---
Providers Date of Admission: 03/05/25 Date of Discharge: 03/08/25 Primary Care Physician: Melissa Judd, RESEARCH AND DEVELOPMENT TESTER Consultations 03/05/25 17:33 Consult: Cardiology Routine Consulting Provider: Alma Gardner Reason for Consult: NSTEMI EMERGENT Consult: Yes MD Notified: Yes Date Notified: 03/05/25 Time Notified: 17:33 Method of Notification: ED Physician Initiated Reason For Visit: chest pain Diagnosis Discharge Diagnosis (1) Acute heart failure with preserved ejection fraction (HFpEF): Status: Acute Code(s): I50.31 - Acute diastolic (congestive) heart failure Medications at Discharge Home Medications atorvastatin 80 mg tablet 80 mg PO QHS cholesterol 12/30/17 acetaminophen 500 mg tablet 1,000 mg PO Q8 PRN fever or pain 11/15/23 ipratropium 0.5 mg-albuterol 3 mg (2.5 mg base)/3 mL nebulization soln 3 ml inhalation Q6H PRN wheezing 05/19/24 apixaban 5 mg tablet 5 mg PO BID Blood Thinner 06/13/24 cholecalciferol (vitamin D3) 50 mcg (2,000 unit) capsule 100 mcg PO DAILY Supplement 11/08/24 clopidogrel 75 mg tablet 75 mg PO DAILY Antiplatelet 11/08/24 pantoprazole 40 mg tablet,delayed release 40 mg PO DAILY Decrease stomach acid 11/08/24 tacrolimus 0.75 mg tablet,extended release 24 hr (Envarsus XR) 1.5 mg PO DAILY Immunosuppressant 11/08/24 magnesium oxide 400 mg (241.3 mg magnesium) tablet 400 mg PO DAILY Supplement 12/16/24 melatonin 5 mg tablet 5 mg PO QHS INSOMNIA 12/16/24 prednisone 5 mg tablet 5 mg PO DAILY liver transplant 12/16/24 albuterol sulfate 90 mcg/actuation aerosol inhaler 1 - 2 puff inhalation Q4H PRN Shortness Of Breath 03/05/25 darbepoetin sridevi in polysorbat 60 mcg/0.3 mL in polysorbate injection syringe (Aranesp) 6.25 mcg IV QWEEK 03/05/25 doxazosin 8 mg tablet 8 mg PO QHS 03/05/25 gabapentin 300 mg capsule 300 mg PO BID PRN NERVE PAIN 03/05/25 isosorbide mononitrate 30 mg tablet,extended release 24 hr 30 mg PO DAILY 03/05/25 losartan 25 mg tablet 25 mg PO DAILY 03/05/25 metoprolol tartrate 25 mg tablet 25 mg PO BID 03/05/25 sodium bicarbonate 650 mg tablet 1,300 mg PO BID 03/05/25 trazodone 50 mg tablet 50 mg PO QHS 03/05/25 atorvastatin 80 mg tablet 80 mg PO QHS #30 tabs 03/08/25 cefdinir 300 mg capsule 300 mg PO DAILY #4 caps 03/08/25 furosemide 20 mg tablet (Lasix) 60 mg (3 x 20 mg) PO DAILY 30 days #90 tabs 03/08/25 Hospital Course Operations None Procedures None Summary of Care Provided Minutes Spent on Discharge: 55 Hospital Course: Patient is a 55-year-old male with an extensive past medical history as outlined was admitted through the ED on 03/05/2025 with a complaint of chest pain which have been going on for several hours prior to admission. He was admitted in December 2024 for similar complaints and was transferred to [facility]s request for further evaluation then. Patient says he lives a very active lifestyle usually walking around 8-10,000 steps daily but has been noticing some exertional chest pain so he came into the ED. His proBNP was markedly elevated at 30,833. Troponins were 51 on admission and trended up to a peak of 123. He was admitted to manage for acute exacerbation of heart failure as well as non-STEMI and [place] on CKD. Cardiology was consulted. Cardiology felt the elevated troponins were likely due to demand ischemia from type II nonstemi. He was diuresed with IV Lasix.Cardiology was consulted. Hospital course was complicated by hyperkalemia. Patient said he usually took Lokelma at home because his hyperkalemia was chronic. He had 2D echo which showed EF of 40 to 45% with moderate left ventricular systolic dysfunction and no significant changes from previous TTE. Shortness of breath resolved and he felt much better. He was switched to p.o. Lasix 60 mg daily. He was discharged home on 03/08/2025 on p.o. Lasix 60 mg daily. Of note patient's potassium was 5.2 on day of discharge. He was given Kayexalate but patient was not willing to stay for his potassium levels to be rechecked prior to discharge. He said he is due to follow-up with the [facility] team on 03/09/2025 in [place] and will get his blood work checked then. Of note due to his impaired renal function, cardiology also recommended that he follow-up with [facility] for any cath to be considered there. He was also treated for pneumonia and was discharged home on p.o. cefdinir 300 mg daily from 4 days to complete a 7-day course. Patient seen and examined prior to discharge. He had no active complaints and wanted to be discharged home. Review of systems otherwise negative. Labs and vitals reviewed. All medication reviewed and reconciled. Physical Exam Const alert, oriented x3 and no apparent distress General Appearance: cooperative and comfortable Orientation / Consciousness: awake Exam Limitations: no limitations HEENT normocephalic, head/scalp atraumatic, hearing grossly normal bilaterally and moist oral mucous membranes Mouth: oral and palatal mucosa normal Eyes PERRL, EOMs intact bilaterally and conjunctivae normal Neck no lymphadenopathy and supple Resp normal respiratory effort, no use of accessory muscles and clear to auscultation bilaterally Cardio regular rate, regular rhythm, S1 normal heart sound, S2 normal heart sound and no murmurs GI normal to inspection, nondistended, normoactive bowel sounds, soft to palpation, non-tender and non-distended Extremity normal to inspection, full ROM and no clubbing, cyanosis or edema Skin no rashes or lesions noted Neuro oriented x3, CN's II-XII intact bilaterally, moves all extremities and no focal motor deficits Sensorium / Orientation: awake and alert Motor Exam: strength 5/5 throughout Psych affect normal Weight / BMI Weight Weight: 132 lb 11.492 oz Body Mass Index (BMI) 22.1 ABG / Lab / Microbiology Data 03/08/25 04:24 03/08/25 04:24 Laboratory: Laboratory Results - last 24 hr 03/08/25 04:24: WBC 7.1, RBC 3.20 L, Hgb 9.5 L, Hct 29.8 L, MCV 93.1, MCH 29.7, MCHC 31.9 L, RDW Std Deviation 43.9, RDW Coeff of Adamaris 12.7, Plt Count 89 L, MPV 11.8, Sodium 138, Potassium 5.2 H, Chloride 102, Carbon Dioxide 25.8, Anion Gap 10, BUN 49 H, Creatinine 2.76 H, Estim Creat Clear Calc 25.45 L, Est GFR (MDRD) Non-Af 26 L, BUN/Creatinine Ratio 17.9, Glucose 121 H, Calcium 9.0 D/C Instructions Discharge Diet: Low fat / Low cholesterol Discharge Activity: Return to Normal Activity Weight Bearing Status: Weight bearing as tolerated Call your doctor if you observe: Fever of 101 or Higher, Shortness of breath, Dizziness and Swelling in the ankles DC O2, CPAP, BIPAP Needs Home O2 Discharge instructions: No DC home with Oxygen: No Meaningful Use Info Meaningful Use Meaningful Use Diagnoses (Choose all that apply): CHF CHF MARY/ARB ordered at discharge?: No Reason MARY/ARB not ordered?: Worsening renal disease Documented LVEF (%): 40 Ischemic Stroke Statin Dosing Therapy Reference: STATIN DOSE THERAPY REFERENCE: * Patients > 75 years receive moderate or high dose statin therapy. * Patients 75 years or YOUNGER should receive HIGH intensity statin dose unless contraindicated. You will be required to document reason for non-treatment if statin daily dose does not meet guidelines. HIGH DOSE STATIN THERAPY DAILY Atorvastatin > than or = to 40 mg Rosuvastatin > than or = to 20 mg Amlodipine + Atorvastatin > than or = to 2.5/40 mg Ezetimibe + Simvastatin 10/80 mg Simvastatin 80mg Discharge Plan Admission Admit Date/Time: 03/05/25 17:18 Primary Reason for Your Visit: acute hFpEF, pneumonia Attending Provider: Kiley Irwin Primary Care Provider: Melissa Judd Consulting Providers: Alma Gardner; Stanford Roman; Oswaldo Capellan Instructions Patient Instructions: Coping with Heart Failure Additional Instructions / Restrictions: follow up with your auto service writer at [facility] within one week as scheduled. Discharge Orders/Prescriptions Prescriptions: New cefdinir 300 mg Capsule 300 mg PO DAILY Qty: 4 0RF furosemide [Lasix] 20 mg tablet 60 mg PO DAILY 30 Days Qty: 90 2RF atorvastatin 80 mg Tablet 80 mg PO QHS Qty: 30 2RF Continued atorvastatin 80 MG tablet 80 mg PO QHS Patient Comments: acetaminophen 500 MG tablet 1,000 mg PO Q8 PRN (Reason: fever or pain) ipratropium-albuterol 0.5 mg-3 mg(2.5 mg base)/3 mL solution for nebulization 3 ml inhalation Q6H PRN (Reason: wheezing) Envarsus XR 0.75 mg tablet extended release 24 hr 1.5 mg PO DAILY cholecalciferol (vitamin D3) 50 mcg (2,000 unit) capsule 100 mcg PO DAILY clopidogrel 75 mg tablet 75 mg PO DAILY pantoprazole 40 mg tablet,delayed release (DR/EC) 40 mg PO DAILY Aranesp (in polysorbate) 60 mcg/0.3 mL syringe 6.25 mcg IV QWEEK Patient Comments: PT DOESNT TAKE DUE TO EXPENSE doxazosin 8 mg tablet 8 mg PO QHS gabapentin 300 mg capsule 300 mg PO BID PRN (Reason: NERVE PAIN) trazodone 50 mg tablet 50 mg PO QHS isosorbide mononitrate 30 mg tablet extended release 24 hr 30 mg PO DAILY sodium bicarbonate 650 mg tablet 1,300 mg PO BID losartan 25 mg tablet 25 mg PO DAILY metoprolol tartrate 25 mg tablet 25 mg PO BID albuterol sulfate 1 INHALER inhaler 1 - 2 puff inhalation Q4H PRN (Reason: Shortness Of Breath) apixaban 5 mg tablet 5 mg PO BID prednisone 5 mg tablet 5 mg PO DAILY magnesium oxide 400 mg (241.3 mg magnesium) tablet 400 mg PO DAILY melatonin 5 mg tablet 5 mg PO QHS Discontinued cefdinir 300 mg capsule 300 mg PO DAILY Referrals / Follow Up: Melissa Judd, RESEARCH AND DEVELOPMENT TESTER [Primary Care Provider] - Within 1 Week Disposition Disposition (needs filled in before D/C Order can be placed): Home, Self Care Charges/Coding Visit Charges Inpatient E&M: 13378 Disch Hosp >30min
[2025-03-08] MEDS: Sodium Bicarbonate 650 MG Tablet 1300 MG PO (11:39)
--- NOTE | 2025-03-08 12:02 | CASEMGMT ---
Patient has order for discharge. RN CM in to discuss needs at discharge. Patient denies needs or helps at discharge. Patient states he is out of his atorvastatin at home and would like script, RN DARRIAN updated nursing. Patient denied further needs or concerns at discharge. Patient had no further questions.
== END 2025-03-08 12:58 | disposition home or self-care (01) | DRG 280 ==
LOC: ED 16:37 → PCU 03-06 07:05
PROVIDERS: Hospitalist; Admitting Provider Internal Medicine; Emergency Provider Emergency Medicine; PCP Clinical Nurse Specialist Adult Health; Visit Provider Student in an Organized Health Care Education/Training Program
DX: I13.2 Hypertensive heart and chronic kidney disease with heart failure and with stage 5 chronic kidney disease, or end stage renal disease (principal); I21.A1 Myocardial infarction type 2; I50.31 Acute diastolic (congestive) heart failure; J18.9 Pneumonia, unspecified organism; J44.0 Chronic obstructive pulmonary disease with (acute) lower respiratory infection; N13.8 Other obstructive and reflux uropathy; N18.4 Chronic kidney disease, stage 4 (severe); I45.2 Bifascicular block; N17.9 Acute kidney failure, unspecified; D63.1 Anemia in chronic kidney disease; E11.22 Type 2 diabetes mellitus with diabetic chronic kidney disease; I48.0 Paroxysmal atrial fibrillation; E87.5 Hyperkalemia; K21.9 Gastro-esophageal reflux disease without esophagitis; I25.10 Atherosclerotic heart disease of native coronary artery without angina pectoris; I25.2 Old myocardial infarction; Z79.52 Long term (current) use of systemic steroids; Z79.82 Long term (current) use of aspirin; Z87.891 Personal history of nicotine dependence; Z79.02 Long term (current) use of antithrombotics/antiplatelets; Z79.01 Long term (current) use of anticoagulants; N40.1 Benign prostatic hyperplasia with lower urinary tract symptoms; Z95.1 Presence of aortocoronary bypass graft; Z86.718 Personal history of other venous thrombosis and embolism; Z86.711 Personal history of pulmonary embolism
CPT/HCPCS: 36415; 71045; 80048; 80053; 80076; 83735; 83880; 84100; 84443; 84484; 85025; 85027; 85379; 85610; 93005; 93306; 94640; 99285; A4216; J1938

== ENCOUNTER 2025-03-25 20:38 | Emergency (ER) | payer OTHER, SELFPAY ==
[2025-03-25 20:39] VITALS: BP 160/108; PULSE 107; RESP 26; TEMP 36.4; O2SAT 97; BMI 23.3
--- NOTE | 2025-03-25 20:42 | EKG12_ITS ---
Test Reason : CP Blood Pressure : */* mmHG Vent. Rate : 111 BPM Atrial Rate : * BPM P-R Int : * ms QRS Dur : 144 ms QT Int : 336 ms P-R-T Axes : * -85 109 degrees QTcB Int : 456 ms Atrial fibrillation with rapid ventricular response Right bundle branch block Left anterior fascicular block Bifascicular block T wave abnormality, consider inferolateral ischemia Abnormal ECG Confirmed by Celso Byrd ([id number]), technical writer and editor POLY EVANGELISTA ([id number]) on 03/30/2025 11:35:14 AM Referred By: Confirmed By: Celso Byrd
[2025-03-25] MEDS: Aspirin 81 MG TAB.CHEW 324 MG PO (20:59)
[2025-03-25] MEDS: Ondansetron 4 MG/2 ML Vial IV (21:01)
[2025-03-25] MEDS: Morphine 4 MG/ML Syringe IV (21:01)
--- NOTE | 2025-03-25 21:15 | RAD_ITS ---
PROCEDURE: CHEST 1 VIEW (PORTABLE) 03/25/2025 REASON FOR EXAM: CHEST PAIN TECHNIQUE: Frontal view of the chest. COMPARISON: Chest radiograph March 05, 2025. FINDINGS: Hardware: Sternal wires. EKG lead wires overlie the chest. Heart: Mildly enlarged. Lungs: Subtle airspace disease right mid zone and more dense focal airspace disease projecting over the left heart border. Pleura: Small bilateral pleural effusions. Atelectasis or consolidation in the left lung base partially obscuring the left hemidiaphragm. Bones: No aggressive bone lesions identified. Other: RAD/Chest 1 View (Portable) IMPRESSION: Bilateral airspace consolidation/pneumonia and pleural effusions. Reading Location: [id number]
--- NOTE | 2025-03-25 21:17 | ED.VIS.CHEST ---
HPI <Dr. Ricky Arceo DO - Last Filed: 03/27/25 09:59> History of Present Illness Chief Complaint: Chest Pain Informant: patient Narrative Narrative: Sudden midsternal chest pain rating to his back 2 hours prior arrival. No recent cough. History of coronary disease CABG in 2005 with 4 vessels performed. History of paroxysmal A-fib diagnosed 2 months ago states was hospitalized. He is on Eliquis along with Plavix. History of renal failure with renal transplant in 2009 followed by [facility]. Reports was hospitalized for his A-fib and has chest pain a month ago. He states he had a heart cath a year ago twice at with vessels not amenable to intervention per patient. No nausea or vomiting. No diaphoresis. Remote tobacco history. Prior Similar Symptoms: Yes Recent Illness/Hospitalization: Yes CVD Risk Factors: Positive for Hypertension and Hypercholesterolemia [facility] <Dr. 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 Pulmonary embolism Neurogenic bladder Hyperparathyroidism Hyperhomocystinemia GERD (gastroesophageal reflux disease) DVT (deep venous thrombosis) Depression Claudication VIC (obstructive sleep apnea) Chronic obstructive pulmonary disease (COPD) Chronic kidney disease, stage 3 Home Medications ?Medication ?Instructions ?Recorded ?Last Taken ?Type atorvastatin 80 mg tablet 80 mg PO QHS cholesterol 12/30/17 03/04/25 History acetaminophen 500 mg tablet 1,000 mg PO Q8 PRN fever or pain 11/15/23 Unknown History ipratropium 0.5 mg-albuterol 3 mg 3 ml inhalation Q6H PRN wheezing 05/19/24 Unknown History (2.5 mg base)/3 mL nebulization soln apixaban 5 mg tablet 5 mg PO BID Blood Thinner 06/13/24 03/04/25 History cholecalciferol (vitamin D3) 50 100 mcg PO DAILY Supplement 11/08/24 03/04/25 History mcg (2,000 unit) capsule clopidogrel 75 mg tablet 75 mg PO DAILY Antiplatelet 11/08/24 03/04/25 History pantoprazole 40 mg tablet,delayed 40 mg PO DAILY Decrease stomach 11/08/24 03/04/25 History release acid tacrolimus 0.75 mg tablet,extended 1.5 mg PO DAILY Immunosuppressant 11/08/24 03/04/25 History release 24 hr (Envarsus XR) magnesium oxide 400 mg (241.3 mg 400 mg PO DAILY Supplement 12/16/24 03/04/25 History magnesium) tablet melatonin 5 mg tablet 5 mg PO QHS INSOMNIA 12/16/24 03/04/25 History prednisone 5 mg tablet 5 mg PO DAILY liver transplant 12/16/24 03/04/25 History albuterol sulfate 90 mcg/actuation 1 - 2 puff inhalation Q4H PRN 03/05/25 Unknown History aerosol inhaler Shortness Of Breath darbepoetin sridevi in polysorbat 60 6.25 mcg IV QWEEK 03/05/25 Unknown History mcg/0.3 mL in polysorbate injection syringe (Aranesp) doxazosin 8 mg tablet 8 mg PO QHS 03/05/25 03/04/25 History gabapentin 300 mg capsule 300 mg PO BID PRN NERVE PAIN 03/05/25 Unknown History isosorbide mononitrate 30 mg 30 mg PO DAILY 03/05/25 03/04/25 History tablet,extended release 24 hr losartan 25 mg tablet 25 mg PO DAILY 03/05/25 03/04/25 History metoprolol tartrate 25 mg tablet 25 mg PO BID 03/05/25 03/04/25 History sodium bicarbonate 650 mg tablet 1,300 mg PO BID 03/05/25 03/04/25 History trazodone 50 mg tablet 50 mg PO QHS 03/05/25 03/04/25 History atorvastatin 80 mg tablet 80 mg PO QHS #30 tabs 03/08/25 Unknown Rx cefdinir 300 mg capsule 300 mg PO DAILY #4 caps 03/08/25 Unknown Rx furosemide 20 mg tablet (Lasix) 60 mg (3 x 20 mg) PO DAILY 30 days 03/08/25 Unknown Rx #90 tabs Allergy/AdvReac Type Severity Reaction Status Date / Time propoxyphene napsylate (From Allergy Hives Verified 03/25/25 20:39 Darvocet-N) venom-honey bee (bee venom Allergy Hives Verified 03/25/25 20:39 (honey bee)) Family History Father Arthritis Cancer Lung cancer, 1990 CAD (coronary artery disease) Mother CAD (coronary artery disease) Diet 2012 Surgical History History of renal transplant S/P femoral-femoral bypass surgery History of quadruple bypass S/P pericardial window creation (~1991) History of lung biopsy (~2007) Renal transplant recipient History of renal transplant Social History household members: spouse housing: house Smoking Status: Former smoker pack-years: 19 Tobacco: How many years used: 15 alcohol intake: never substance use type: does not use ROS <Dr. Ricky Arceo DO - Last Filed: 03/27/25 09:59> ROS ED Constitutional Constitutional ED: Denies chills, fever(s) or sweats ENT ENT ED: Denies sore throat Cardiovascular Cardiovascular: Reports chest pain; Denies leg edema, palpitations or racing heartbeat Respiratory/Chest Respiratory/Chest: Denies cough, dyspnea or dyspnea on exertion Gastrointestinal Gastrointestinal: Denies abdominal pain, diarrhea, nausea or vomiting Genitourinary Genitourinary ED: Denies dysuria, hematuria or urinary frequency Musculoskeletal Musculoskeletal: Denies back pain, extremity pain or neck pain Integumentary Denies rash or wounds Neurologic Neurologic: Denies headache(s), paresthesias or weakness EXAM <Dr. Ricky Arceo, - Last Filed: 03/27/25 09:59> Physical Exam Const Vital Signs: 03/25/25 20:39 03/25/25 21:36 03/25/25 21:37 Temperature 97.6 F L Temperature Source Temporal Pulse Rate 107 H 54 L Respiratory Rate 26 H 21 H Respiratory Effort Short of Breath Blood Pressure 160/108 H 151/82 H Blood Pressure Mean 125 105 Pulse Ox 97 100 Oxygen Delivery Method Room Air Room Air 03/25/25 22:00 03/25/25 22:05 03/26/25 00:06 Temperature Temperature Source Pulse Rate 59 L 58 L Respiratory Rate 20 H 16 Respiratory Effort Blood Pressure 151/78 H 182/88 H Blood Pressure Mean 102 119 Pulse Ox 94 95 Oxygen Delivery Method Room Air Room Air Positive well nourished and well developed Constitutional Narrative: Nontoxic, uncomfortable General Appearance ED: well developed HEENT Reports moist mucous membranes normocephalic and atraumatic Eyes General Eye ED: Yes normal appearance of both eyes Neck full ROM Chest Wall Chest: Negative for tenderness Resp normal respiratory effort and normal air movement Effort and Inspection: symmetric chest movement; Negative for respiratory distress Cardio no murmurs Rate: tachycardic Rhythm: abnormal rhythm Peripheral Pulses: pulses 2+ throughout GI normal to inspection, nondistended, normoactive bowel sounds and non-tender Palpation: Negative for guarding or rebound tenderness present Extremity normal to inspection General Extremety ED: Negative for edema or tenderness General Extremity: Negative for edema Neuro oriented x3 and no sensory deficits noted Sensorium / Orientation: awake and alert Skin no rashes or lesions noted and no wounds <Dr. Zhou Hines, DO - Last Filed: 03/26/25 00:48> Physical Exam Const Vital Signs: 03/25/25 20:39 03/25/25 21:36 03/25/25 21:37 Temperature 97.6 F L Temperature Source Temporal Pulse Rate 107 H 54 L Respiratory Rate 26 H 21 H Respiratory Effort Short of Breath Blood Pressure 160/108 H 151/82 H Blood Pressure Mean 125 105 Pulse Ox 97 100 Oxygen Delivery Method Room Air Room Air 03/25/25 22:00 03/25/25 22:05 03/26/25 00:06 Temperature Temperature Source Pulse Rate 59 L 58 L Respiratory Rate 20 H 16 Respiratory Effort Blood Pressure 151/78 H 182/88 H Blood Pressure Mean 102 119 Pulse Ox 94 95 Oxygen Delivery Method Room Air Room Air MDM <Dr. Ricky Arceo, DO - Last Filed: 03/27/25 09:59> MDM MDM Narrative Medical decision making narrative: Interventions / MDM: Differential diagnosis: Paroxysmal A-fib, chest pain, history of coronary disease. Diagnosis considered but do not suspect: N/A My EKG interpretation: A-fib 111, ST depressions lateral leads no elevation noted. Compared to EKG March 07, 2025 little more depression on the lateral leads. Imaging independently reviewed and interpreted by myself: 1 view chest x-ray: Small pleural effusion bilaterally. External documents reviewed: Reviewed ED note along with cardiology note March 05 and March 10, 2025. 40 cath May 2025 four-vessel CABG he had RCA occlusion 100%. He was not cath this past December due to that being known. Medical management discussed. He was seen for new onset A-fib that was paroxysmal always placed on Eliquis. He is on metoprolol. His echo noted EF of 40 to 45% on his admission. Test considered but not ordered:N/A ED course: Chest pain with slightly worsening ST depression laterally there is no elevations. History of coronary disease. Cardiac workup initiated. Aspirin ordered nitroglycerin along with morphine. 2140: Went back to the room after nursing 41 to sinus rhythm appears better. Currently symptom-free sinus rhythm the monitor will repeat EKG. Labs hemoglobin 9.7 stable from previous white count 5.5. 2299: Repeat EKG sinus rhythm. Heart rate low 60s. He remains symptom-free. Initial troponin 46. Creatinine 2.67 stable from his previous 1. Patient did report running 30 yards ago: Symptoms started. Suspect A-fib leading to demand ischemia causing his symptoms. He has known coronary disease not amenable to intervention. He is on Imdur Eliquis and Plavix. Also on metoprolol. Awaiting delta troponin prior to disposition. Re-evaluation: stable Disposition discussed with patient/family/significant other: Patient Case discussed with consulting clinician: N/A This note was generated with [employer] dictation software. It may contain incorrect words, spelling, and punctuation that were not noted in checking the note before signing. Lab Data Labs: Laboratory Results - last 24 hr 03/25/25 03/25/25 03/25/25 21:05 22:00 23:15 WBC 5.5 RBC 3.23 L Hgb 9.7 L Hct 29.6 L MCV 91.6 MCH 30.0 MCHC 32.8 RDW Std Deviation 43.6 RDW Coeff of [place] 13.1 Plt Count 83 L MPV 12.1 H Immature Gran % (Auto) 0.200 Neut % (Auto) 58.0 Lymph % (Auto) 33.2 [place] % (Auto) 7.5 Eos % (Auto) 0.7 Baso % (Auto) 0.4 Absolute Neuts (auto) 3.2 Absolute Lymphs (auto) 1.81 Nucleated RBC % 0 Differential Comment SCANNED Platelet Estimate MOD DEC PT 18.9 H INR 1.5 APTT 35.1 Sodium 138 Potassium 5.3 H Chloride 103 Carbon Dioxide 23.1 Anion Gap 12 BUN 40 H Creatinine 2.67 H Estim Creat Clear Calc 26.87 L Est GFR (MDRD) Non-Af 27 L BUN/Creatinine Ratio 15.1 Glucose 104 H Calcium 10.0 Troponin T High Sens 46 H D Troponin T Hi Sens 2 Hr 60 H* Radiography Diagnostic Testing: Clinical Impression(s) from Imaging Studies Chest X-Ray 03/25/25 21:15 IMPRESSION: Bilateral airspace consolidation/pneumonia and pleural effusions. Reading Location[facility] <Dr. Zhuo Hines, DO - Last Filed: 03/26/25 00:48> [facility] Lab Data Labs: Laboratory Results - last 24 hr 03/25/25 03/25/25 03/25/25 21:05 22:00 23:15 WBC 5.5 RBC 3.23 L Hgb 9.7 L Hct 29.6 L MCV 91.6 MCH 30.0 MCHC 32.8 RDW Std Deviation 43.6 RDW Coeff of [place] 13.1 Plt Count 83 L MPV 12.1 H Immature Gran % (Auto) 0.200 Neut % (Auto) 58.0 Lymph % (Auto) 33.2 [place] % (Auto) 7.5 Eos % (Auto) 0.7 Baso % (Auto) 0.4 Absolute Neuts (auto) 3.2 Absolute Lymphs (auto) 1.81 Nucleated RBC % 0 Differential Comment SCANNED Platelet Estimate MOD DEC PT 18.9 H INR 1.5 APTT 35.1 Sodium 138 Potassium 5.3 H Chloride 103 Carbon Dioxide 23.1 Anion Gap 12 BUN 40 H Creatinine 2.67 H Estim Creat Clear Calc 26.87 L Est GFR (MDRD) Non-Af 27 L BUN/Creatinine Ratio 15.1 Glucose 104 H Calcium 10.0 Troponin T High Sens 46 H D Troponin T Hi Sens 2 Hr 60 H* Radiography Diagnostic Testing: Clinical Impression(s) from Imaging Studies Chest X-Ray 03/25/25 21:15 IMPRESSION: Bilateral airspace consolidation/pneumonia and pleural effusions. Reading Location: [facility] Management Discussion w/another healthcare provider: Registered Nurse Step Down Treatment and Re-Evaluation :: Patient was signed out to me while awaiting delta troponin. The delta troponin increased from 46-60. This was most likely related to his bout of A-fib with RVR and due to rate induced ischemia. The patient spontaneously converted while in the ER and was pain-free. He has had a recent heart cath as well and conclusion was medical management. As the troponin did elevate I discussed the case with cardiology on-call Dr. Vazquez. He agrees that as there is a reason for the mild elevation of troponin with the A-fib with RVR and rate induced ischemia but now he is sinus rhythm and pain-free there is no need for further evaluation in the ER and is otherwise safe for discharge Discharge Plan Triage Chief Complaint: Chest Pain ED Provider: Ricky Arceo Dx/Rx/DC Orders Clinical Impression: Atrial fibrillation, currently in sinus rhythm, History of coronary artery bypass graft, Chronic kidney disease, Chronic anemia, Chest pain, Chronic anticoagulation Instructions: AFib Preventing Stroke Prescriptions: No Action atorvastatin 80 MG tablet 80 mg PO QHS Patient Comments: acetaminophen 500 MG tablet 1,000 mg PO Q8 PRN (Reason: fever or pain) ipratropium-albuterol 0.5 mg-3 mg(2.5 mg base)/3 mL solution for nebulization 3 ml inhalation Q6H PRN (Reason: wheezing) Envarsus XR 0.75 mg tablet extended release 24 hr 1.5 mg PO DAILY cholecalciferol (vitamin D3) 50 mcg (2,000 unit) capsule 100 mcg PO DAILY clopidogrel 75 mg tablet 75 mg PO DAILY pantoprazole 40 mg tablet,delayed release (DR/EC) 40 mg PO DAILY Aranesp (in polysorbate) 60 mcg/0.3 mL syringe 6.25 mcg IV QWEEK Patient Comments: PT DOESNT TAKE DUE TO EXPENSE doxazosin 8 mg tablet 8 mg PO QHS gabapentin 300 mg capsule 300 mg PO BID PRN (Reason: NERVE PAIN) trazodone 50 mg tablet 50 mg PO QHS isosorbide mononitrate 30 mg tablet extended release 24 hr 30 mg PO DAILY sodium bicarbonate 650 mg tablet 1,300 mg PO BID losartan 25 mg tablet 25 mg PO DAILY metoprolol tartrate 25 mg tablet 25 mg PO BID albuterol sulfate 1 INHALER inhaler 1 - 2 puff inhalation Q4H PRN (Reason: Shortness Of Breath) cefdinir 300 mg Capsule 300 mg PO DAILY Qty: 4 0RF furosemide [Lasix] 20 mg tablet 60 mg PO DAILY 30 Days Qty: 90 2RF atorvastatin 80 mg Tablet 80 mg PO QHS Qty: 30 2RF apixaban 5 mg tablet 5 mg PO BID prednisone 5 mg tablet 5 mg PO DAILY magnesium oxide 400 mg (241.3 mg magnesium) tablet 400 mg PO DAILY melatonin 5 mg tablet 5 mg PO QHS Primary Care Provider: Melissa Judd Referrals: Melissa Judd, [employer] [Primary Care Provider] - Activity Restrictions/Additional Instructions: Please continue all of your home medications as directed by your doctors and return to the ER should you have any further concerns Print Language: Belgian Disposition Disposition: Home, Self Care Discharge Date/Time: 03/26/25 01:05
[2025-03-25 21:22] LABS: Absolute Lymphocyte Count 1.81 X10^3/uL (0.83-4.51); Absolute Neutrophil Count 3.2 X10^3/uL (2.0-7.7); Basophil# 0.02 X10^3/uL; Basophil% 0.4 % (0-1); Eosinophil# 0.04 X10^3/uL; Eosinophils% 0.7 % (0-5); Hematocrit 29.6 % (40-54); Hemoglobin 9.7 g/dL (13.0-16.5); Lymphocyte # 1.81 X10^3/ul (0.83-4.51); Lymphocyte % 33.2 % (19-41); Mean Corp Hgb Conc 32.8 g/dL (32-36); Mean Corpuscular Volume 91.6 fL (80-94); Mean Platelet Vol. 12.1 fl (6.2-12.0); Monocyte# 0.41 X10^3/uL; Monocyte% 7.5 % (0-10); NRBC Flagged by Analyzer 0 % (0-5); Neutrophil # 3.17 X10^3/uL (2.7-7.7); POSITIVE COUNT YES; Platelet Count 83 K/mm3 (150-450); RBC Distribution Width CV 13.1 % (11.6-14.6); RBC Distribution Width SD 43.6 fl (35.1-43.9); Red Blood Count 3.23 M/mm3 (4.6-6.2); White Blood Count 5.5 K/mm3 (4.4-11.0)
[2025-03-25 21:25] LABS: Differential Indicated SCAN CRITERIA MET
[2025-03-25 21:37] VITALS: BP 151/82; PULSE 54; RESP 21; O2SAT 100
--- NOTE | 2025-03-25 21:42 | EKG12_ITS ---
Test Reason : DYSRHYTHMIA Blood Pressure : */* mmHG Vent. Rate : 59 BPM Atrial Rate : 59 BPM P-R Int : 138 ms QRS Dur : 146 ms QT Int : 474 ms P-R-T Axes : 70 -73 -61 degrees QTcB Int : 469 ms Sinus bradycardia Right bundle branch block Left anterior fascicular block Bifascicular block T wave abnormality, consider lateral ischemia Abnormal ECG Confirmed by Celso Byrd ([id number]), slot editor POLY EVANGELISTA ([id number]) on 03/30/2025 11:35:27 AM Referred By: TL Confirmed By: Celso Byrd
[2025-03-25 21:45] LABS: Anion Gap 12 (5-15); BUN 40 mg/dL (4-19); BUN/Creat Ratio 15.1 RATIO (10-20); Carbon Dioxide 23.1 mmol/L (21.0-32.0); Chloride 103 mmol/L (98-108); Creatinine, Serum 2.67 mg/dL (0.70-1.20); EST Glomerular Filtration Rate 27 (>60); Estimated Creatinine Clearance 26.87 ml/min (50-250); Glucose 104 mg/dL (70-99); Potassium 5.3 mmol/L (3.3-5.1); Sodium Level 138 mmol/L (133-145); Troponin T High Sensitivity 46 ng/L (<=22)
[2025-03-25 22:00] VITALS: BP 151/78; PULSE 59; RESP 20; O2SAT 94
[2025-03-25 22:13] LABS: Differential Comment SCANNED
[2025-03-25 22:14] LABS: Platelet Estimate MOD DEC (ADEQ)
[2025-03-25 22:29] LABS: International Normalized Ratio 1.5; Prothrombin Time (Protime)PT. 18.9 SECONDS (11.7-14.9)
[2025-03-25 22:30] LABS: Partial Thromboplast Time 35.1 Seconds (24.1-36.2)
[2025-03-25 23:53] LABS: Troponin T High Sens 2 HR 60 ng/L (<=22)
[2025-03-26 00:06] VITALS: BP 182/88; PULSE 58; RESP 16; O2SAT 95
[2025-03-26 01:03] VITALS: BP 179/96; PULSE 64; RESP 17; TEMP 37; O2SAT 95
--- NOTE | 2025-03-26 01:04 | ED.RN ---
informed Dr. Hines of D/C vitals, was instructed to educate pt on taking BP meds at home as prescribed and to have pt take BP meds that were suppose to be taken tonight. pt agreeable with plan
== END 2025-03-26 01:05 | disposition home or self-care (01) ==
PROVIDERS: Emergency Provider Emergency Medicine; PCP Clinical Nurse Specialist Adult Health; Visit Provider Emergency Medicine
DX: I48.91 Unspecified atrial fibrillation (principal); I50.42 Chronic combined systolic (congestive) and diastolic (congestive) heart failure; I13.0 Hypertensive heart and chronic kidney disease with heart failure and stage 1 through stage 4 chronic kidney disease, or unspecified chronic kidney disease; J44.9 Chronic obstructive pulmonary disease, unspecified; I24.89 Other forms of acute ischemic heart disease; E78.00 Pure hypercholesterolemia, unspecified; N18.9 Chronic kidney disease, unspecified; Z79.02 Long term (current) use of antithrombotics/antiplatelets; Z79.899 Other long term (current) drug therapy; Z87.891 Personal history of nicotine dependence; Z95.1 Presence of aortocoronary bypass graft; Z94.0 Kidney transplant status; I25.2 Old myocardial infarction
CPT/HCPCS: 36415; 71045; 80048; 84484; 85025; 85610; 85730; 93005; 96374; 96375; 99283; A4216; J2405

== ENCOUNTER 2025-04-22 06:27 | Emergency (ER) | payer OTHER, SELFPAY ==
[2025-04-22 06:28] VITALS: BP 125/101; PULSE 94; RESP 21; TEMP 36.4; O2SAT 100; BMI 22.4
--- NOTE | 2025-04-22 06:46 | RAD_ITS ---
PROCEDURE: CHEST PA AND LATERAL 04/22/2025 REASON FOR EXAM: CHEST PAIN TECHNIQUE: CHEST PA AND LATERAL COMPARISON: Prior study dated March 25, 2025. FINDINGS: Hardware: EKG electrodes are seen. Heart: Cardiomegaly. Prior midline sternotomy. Mediastinum: The mediastinal contour is unremarkable. Lungs: Vascular congestion and CHF with blunting of both costophrenic angles. Calcified right pleural plaques. Bones: Degenerative changes are identified within the thoracic spine. RAD/Chest PA and Lateral IMPRESSION: Cardiomegaly and CHF with blunting of both costophrenic angles worse on the rig ht side. Right pleural plaque calcification. Reading Location: [facility]
[2025-04-22] MEDS: 0.9% Normal Saline (500mL Bag) 500 ML 999 ML IV (06:57)
[2025-04-22 06:59] LABS: Hematocrit 31.8 % (40-54); Hemoglobin 10.2 g/dL (13.0-16.5); Immature Granulocytes Count 0.010 X10^3/uL (0.0-0.0); Mean Corp Hgb Conc 32.1 g/dL (32-36); Mean Corpuscular Volume 91.6 fL (80-94); Mean Platelet Vol. 11.9 fl (6.2-12.0); NRBC Flagged by Analyzer 0.4 % (0-5); Platelet Count 102 K/mm3 (150-450); RBC Distribution Width CV 14.6 % (11.6-14.6); RBC Distribution Width SD 48.1 fl (35.1-43.9); Red Blood Count 3.47 M/mm3 (4.6-6.2); White Blood Count 5.5 K/mm3 (4.4-11.0)
[2025-04-22 07:27] VITALS: BP 152/105; PULSE 82; RESP 19
[2025-04-22] MEDS: HYDROmorphone 0.5 MG/0.5 ML SYRINGE IV (07:35)
--- NOTE | 2025-04-22 07:44 | EX.ED.DYSGE1 ---
HPI History of Present Illness Chief Complaint: Chest Pain Informant: patient Narrative Narrative: Patient is a 55-year-old male with past medical history of chronic kidney disease chronic anemia CHF and CAD as well as paroxysmal atrial fibrillation currently on Eliquis. He states that he went to bed as he normally would last night and then his alarm went off this morning and he states it kind of startled him awake. He states after this he noticed that his heart was racing and palpating similar to when he has been in his bouts of atrial fibrillation. He states at that time he also noticed chest pain. He states that for some reason he experiences his A-fib as chest discomfort/pain and that the pain he is experiencing at this time is consistent with atrial fibrillation. He reports has been taking all of his medications as directed and denies any illicit drug use or excessive stimulant use. However secondary to the persistent pain and the fact he is not spontaneously converting out of atrial fibrillation he presents for evaluation [facility] Medical History Paroxysmal atrial fibrillation due to heart valve disorder Moderate left ventricular systolic dysfunction (LVSD) Acute heart failure with preserved ejection fraction (HFpEF) Chest pain Atherosclerotic heart disease of [place] coronary artery without angina pectoris NSTEMI (non-ST elevated myocardial infarction) Exertional chest pain Thrombocytopenia Troponin I above reference range Hypertension Immunosuppressed status PVD (peripheral vascular disease) End stage renal disease FPC systemic steroid user Pulmonary embolism Neurogenic bladder Hyperparathyroidism Hyperhomocystinemia GERD (gastroesophageal reflux disease) DVT (deep venous thrombosis) Depression Claudication VIC (obstructive sleep apnea) Chronic obstructive pulmonary disease (COPD) Chronic kidney disease, stage 3 Home Medications ?Medication ?Instructions ?Recorded ?Last Taken ?Type atorvastatin 80 mg tablet 80 mg PO QHS cholesterol 12/30/17 03/04/25 History acetaminophen 500 mg tablet 1,000 mg PO Q8 PRN fever or pain 11/15/23 Unknown History ipratropium 0.5 mg-albuterol 3 mg 3 ml inhalation Q6H PRN wheezing 05/19/24 Unknown History (2.5 mg base)/3 mL nebulization soln apixaban 5 mg tablet 5 mg PO BID Blood Thinner 06/13/24 03/04/25 History cholecalciferol (vitamin D3) 50 100 mcg PO DAILY Supplement 11/08/24 03/04/25 History mcg (2,000 unit) capsule clopidogrel 75 mg tablet 75 mg PO DAILY Antiplatelet 11/08/24 03/04/25 History pantoprazole 40 mg tablet,delayed 40 mg PO DAILY Decrease stomach 11/08/24 03/04/25 History release acid tacrolimus 0.75 mg tablet,extended 1.5 mg PO DAILY Immunosuppressant 11/08/24 03/04/25 History release 24 hr (Envarsus XR) magnesium oxide 400 mg (241.3 mg 400 mg PO DAILY Supplement 12/16/24 03/04/25 History magnesium) tablet melatonin 5 mg tablet 5 mg PO QHS INSOMNIA 12/16/24 03/04/25 History prednisone 5 mg tablet 5 mg PO DAILY liver transplant 12/16/24 03/04/25 History albuterol sulfate 90 mcg/actuation 1 - 2 puff inhalation Q4H PRN 03/05/25 Unknown History aerosol inhaler Shortness Of Breath doxazosin 8 mg tablet 8 mg PO QHS 03/05/25 03/04/25 History gabapentin 300 mg capsule 300 mg PO BID PRN NERVE PAIN 03/05/25 Unknown History isosorbide mononitrate 30 mg 30 mg PO DAILY 03/05/25 03/04/25 History tablet,extended release 24 hr losartan 25 mg tablet 25 mg PO DAILY 03/05/25 03/04/25 History metoprolol tartrate 25 mg tablet 25 mg PO BID 03/05/25 03/04/25 History sodium bicarbonate 650 mg tablet 1,300 mg PO BID 03/05/25 03/04/25 History trazodone 50 mg tablet 50 mg PO QHS 03/05/25 03/04/25 History cefdinir 300 mg capsule 300 mg PO DAILY #4 caps 03/08/25 Unknown Rx furosemide 20 mg tablet (Lasix) 60 mg (3 x 20 mg) PO DAILY 30 days 03/08/25 Unknown Rx #90 tabs Allergy/AdvReac Type Severity Reaction Status Date / Time propoxyphene napsylate (From Allergy Hives Verified 04/22/25 06:28 Joel-N) venom-honey bee (bee venom Allergy Hives Verified 04/22/25 06:28 (honey bee)) Family History Father Arthritis Cancer Lung cancer, 1990 CAD (coronary artery disease) Mother CAD (coronary artery disease) Diet 2013 Surgical History History of renal transplant S/P femoral-femoral bypass surgery History of quadruple bypass S/P pericardial window creation (~1991) History of lung biopsy (~2007) Renal transplant recipient History of renal transplant Social History household members: spouse housing: house Smoking Status: Former smoker pack-years: 19 Tobacco: How many years used: 15 alcohol intake: never substance use type: does not use ROS ROS ED Constitutional Constitutional ED: Denies chills or fever(s) Eyes Eyes: Denies blurry vision or change in vision ENT ENT ED: Denies sore throat Cardiovascular Cardiovascular: Reports chest pain, palpitations and racing heartbeat Respiratory/Chest Respiratory/Chest: Reports dyspnea; Denies cough Gastrointestinal Gastrointestinal: Denies abdominal pain, diarrhea, nausea or vomiting Genitourinary Genitourinary ED: Denies dysuria or hematuria Musculoskeletal Musculoskeletal: Reports back pain Integumentary Denies rash Neurologic Neurologic: Denies headache(s) Hematologic/Lymphatic Hematologic/Lymphatic: Reports easy bleeding and easy bruising EXAM Physical Exam Const Vital Signs: 04/22/25 06:28 04/22/25 07:27 Temperature 97.5 F L Temperature Source Oral Pulse Rate 94 82 Respiratory Rate 21 H 19 H Blood Pressure 125/101 H 152/105 H Blood Pressure Mean 109 120 Pulse Ox 100 Positive well nourished and well developed General Appearance ED: well developed HEENT Reports dry mucous membranes HEENT Narrative: No tongue or lip swelling no oral lesions no airway edema or compromise No secondary findings in the posterior pharynx to suggest infection Mouth ED: Yes dry mucous membranes Mouth: dry mucous membranes Eyes PERRL and EOMs intact bilaterally General Eye ED: Yes pale conjunctiva; Negative for scleral icterus Neck supple and no JVD Chest Wall palpation of chest normal Chest Narrative: No bony deformity or subcutaneous emphysema Resp normal respiratory effort Resp Narrative: Breath sounds are diminished throughout with faint expiratory wheeze consistent with history of COPD but no signs of respiratory distress Cardio Rate: other Other Details: Irregularly irregular rhythm with slightly tachycardic rate consistent with history of paroxysmal atrial fibrillation GI normal to inspection, nondistended, normoactive bowel sounds, non-tender, non-distended and no masses GI Narrative: No voluntary guarding or rigidity or pulsatile mass Auscultation: normoactive bowel sounds Palpation: soft Extremity Extremity Narrative: +2 pitting edema to the bilateral lower extremities that is equal and symmetric Negative Homans' sign bilaterally Neuro oriented x3, CN's II-XII intact bilaterally and no sensory deficits noted Sensorium / Orientation: alert Motor Exam: strength 5/5 throughout Psych mental status grossly normal Skin no rashes or lesions noted General Skin Exam: Negative for jaundice MDM MDM History & Record Review Discussion w/independent historian: Patient Lab Data Attestation: I reviewed the patient's lab results. Labs: Laboratory Results - last 24 hr 04/22/25 04/22/25 06:35 07:40 WBC 5.5 RBC 3.47 L Hgb 10.2 L Hct 31.8 L MCV 91.6 MCH 29.4 MCHC 32.1 RDW Std Deviation 48.1 H RDW Coeff of [place] 14.6 Plt Count 102 L MPV 11.9 Immature Gran % (Auto) 0.200 Neut % (Auto) 49.6 Lymph % (Auto) 40.4 [place] % (Auto) 7.8 Eos % (Auto) 1.6 Baso % (Auto) 0.4 Absolute Neuts (auto) 2.7 Absolute Lymphs (auto) 2.22 Nucleated RBC % 0.4 Sodium Cancelled 138 Potassium Cancelled 4.4 Chloride Cancelled 107 Carbon Dioxide Cancelled 20.3 L Anion Gap Cancelled 11 BUN Cancelled 45 H Creatinine Cancelled 2.52 H Estim Creat Clear Calc Cancelled 28.38 L Est GFR (MDRD) Non-Af Cancelled 29 L BUN/Creatinine Ratio Cancelled 17.9 Glucose Cancelled 102 H Calcium Cancelled 9.0 Magnesium Cancelled 1.5 TSH Cancelled 1.290 Patient arrived to the ER hypertensive but otherwise with stable vitals. He is in atrial fibrillation which is a paroxysmal rhythm for him and mildly tachycardic rate around 100. His previous charts were reviewed and based on his chronic kidney disease and underlying medical pathology he is not a candidate for cardiovascular intervention. Moreover the ancillary services manager therapy feels that the recent admissions for his elevated troponin were a type II NC secondary to demand ischemia from the A-fib. The patient also states that his chest discomfort is typically associated with atrial fibrillation and in the past he has reported resolution of his chest pain when the A-fib is no longer present. Secondary to this I felt no need for a troponin value but simply to check basic laboratory studies that could exacerbate his atrial fibrillation. The patient's hemoglobin is low but at baseline. Kidney function is elevated but also at baseline and there is no clinically significant electrolyte abnormality. The patient was given 4 baby aspirin and secondary to his chest pain as well as morphine. The patient reported that roughly 1 month ago when he was given this he converted out of A-fib and his pain resolved. Despite the same treatment he remained in A-fib and therefore he was given 10 mg of IV Cardizem to see if rate reduction would lead to spontaneous cardioversion as well as 0.5 mg of Dilaudid. Despite the medication he did not convert. At this time he may need cardioverted and as he has been on Eliquis the chance for clot formation is extremely low and therefore I feel it is a safe treatment option for the patient. However we are still awaiting potential spontaneous cardioversion and therefore [facility]. Radiography Diagnostic Testing: Clinical Impression(s) from Imaging Studies Chest X-Ray 04/22/25 06:46 IMPRESSION: Cardiomegaly and CHF with blunting of both costophrenic angles worse on the right side. Right pleural plaque calcification. Reading Location: [place] [id number] 2 view chest x-ray as interpreted by the emergency medicine physician reveals cardiomegaly with small bilateral pleural effusions but no obvious infiltrate or pneumothorax or widening of the mediastinum Discharge Plan Triage Chief Complaint: Chest Pain ED Provider: Zhou Hines Dx/Rx/DC Orders Clinical Impression: Paroxysmal atrial fibrillation, Chronic kidney disease, Current use of middle or intermediate [employer] principal anticoagulation, Congestive heart failure Prescriptions: No Action atorvastatin 80 MG tablet 80 mg PO QHS Patient Comments: acetaminophen 500 MG tablet 1,000 mg PO Q8 PRN (Reason: fever or pain) ipratropium-albuterol 0.5 mg-3 mg(2.5 mg base)/3 mL solution for nebulization 3 ml inhalation Q6H PRN (Reason: wheezing) Envarsus XR 0.75 mg tablet extended release 24 hr 1.5 mg PO DAILY cholecalciferol (vitamin D3) 50 mcg (2,000 unit) capsule 100 mcg PO DAILY clopidogrel 75 mg tablet 75 mg PO DAILY pantoprazole 40 mg tablet,delayed release (DR/EC) 40 mg PO DAILY doxazosin 8 mg tablet 8 mg PO QHS gabapentin 300 mg capsule 300 mg PO BID PRN (Reason: NERVE PAIN) trazodone 50 mg tablet 50 mg PO QHS isosorbide mononitrate 30 mg tablet extended release 24 hr 30 mg PO DAILY sodium bicarbonate 650 mg tablet 1,300 mg PO BID losartan 25 mg tablet 25 mg PO DAILY metoprolol tartrate 25 mg tablet 25 mg PO BID albuterol sulfate 1 INHALER inhaler 1 - 2 puff inhalation Q4H PRN (Reason: Shortness Of Breath) cefdinir 300 mg Capsule 300 mg PO DAILY Qty: 4 0RF furosemide [Lasix] 20 mg tablet 60 mg PO DAILY 30 Days Qty: 90 2RF apixaban 5 mg tablet 5 mg PO BID prednisone 5 mg tablet 5 mg PO DAILY magnesium oxide 400 mg (241.3 mg magnesium) tablet 400 mg PO DAILY melatonin 5 mg tablet 5 mg PO QHS Primary Care Provider: Melissa Judd Referrals: Melissa Judd, [employer] [Primary Care Provider] - Print Language: Faroese
[2025-04-22 08:00] VITALS: BP 122/69; PULSE 66; RESP 18
[2025-04-22 08:31] LABS: Anion Gap 11 (5-15); BUN 45 mg/dL (4-19); BUN/Creat Ratio 17.9 RATIO (10-20); Calcium,Total 9.0 mg/dL (7.6-11.0); Carbon Dioxide 20.3 mmol/L (21.0-32.0); Chloride 107 mmol/L (98-108); Estimated Creatinine Clearance 28.38 ml/min (50-250); Glucose 102 mg/dL (70-99); Magnesium 1.5 mg/dL (1.5-2.2); Potassium 4.4 mmol/L (3.3-5.1)
[2025-04-22 09:00] VITALS: BP 130/89; PULSE 57; RESP 17
--- NOTE | 2025-04-22 09:03 | EKG12_ITS ---
Test Reason : CP Blood Pressure : */* mmHG Vent. Rate : 103 BPM Atrial Rate : * BPM P-R Int : * ms QRS Dur : 146 ms QT Int : 350 ms P-R-T Axes : * -88 104 degrees QTcB Int : 458 ms Atrial fibrillation with rapid ventricular response Right bundle branch block Left anterior fascicular block Bifascicular block T wave abnormality, consider lateral ischemia Abnormal ECG Confirmed by KAITLIN BURT, LANCE ([id number]), fashion editor EDSON PEREIRA ([id number]) on 05/06/2025 8:37:12 AM Referred By: Confirmed By: LANCE MADRIGAL MD
[2025-04-22 09:26] VITALS: O2SAT 97
[2025-04-22 09:57] VITALS: BP 123/80; PULSE 56; RESP 12; TEMP 37; O2SAT 97
== END 2025-04-22 10:20 | disposition home or self-care (01) ==
PROVIDERS: Emergency Provider Emergency Medicine; PCP Clinical Nurse Specialist Adult Health; Visit Provider Emergency Medicine
DX: I48.0 Paroxysmal atrial fibrillation (principal); I13.2 Hypertensive heart and chronic kidney disease with heart failure and with stage 5 chronic kidney disease, or end stage renal disease; I50.32 Chronic diastolic (congestive) heart failure; J44.9 Chronic obstructive pulmonary disease, unspecified; N18.30 Chronic kidney disease, stage 3 unspecified; R00.1 Bradycardia, unspecified; I25.10 Atherosclerotic heart disease of native coronary artery without angina pectoris; Z79.01 Long term (current) use of anticoagulants; Z79.02 Long term (current) use of antithrombotics/antiplatelets; Z86.711 Personal history of pulmonary embolism; Z87.891 Personal history of nicotine dependence; Z86.718 Personal history of other venous thrombosis and embolism; I25.2 Old myocardial infarction
CPT/HCPCS: 71046; 80048; 83735; 84443; 85025; 93005; 96361; 96374; 96375; 99282; A4216; J2405

== ENCOUNTER 2025-05-05 06:42 | Emergency (ER) | payer OTHER, SELFPAY ==
[2025-05-05 06:42] VITALS: BP 137/105; PULSE 103; RESP 22; TEMP 36.4; O2SAT 97; BMI 23.9
--- NOTE | 2025-05-05 07:06 | EDS_ITS ---
HPI History of Present Illness Chief Complaint: Palpitations Narrative Narrative: 55-year-old male past medical history of atrial fibrillation, on Plavix and Eliquis states he was initially diagnosed approximately 1 month ago presents with A-fib heart palpitations and chest pain. He states that about 5:00 this morning, approximately 2 hours ago, started having heart palpitations and chest pain. He states that he was in atrial fibrillation last week. He denies any exacerbating or alleviating factors. States he takes Lopressor for his atrial fibrillation. 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. 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 Pulmonary embolism Neurogenic bladder Hyperparathyroidism Hyperhomocystinemia GERD (gastroesophageal reflux disease) DVT (deep venous thrombosis) Depression Claudication VIC (obstructive sleep apnea) Chronic obstructive pulmonary disease (COPD) Chronic kidney disease, stage 3 Home Medications ?Medication ?Instructions ?Recorded ?Last Taken ?Type atorvastatin 80 mg tablet 80 mg PO QHS cholesterol 03/04/25 History acetaminophen 500 mg tablet 1,000 mg PO Q8 PRN fever o r pain 11/15/23 Unknown History ipratropium 0.5 mg-albuterol 3 mg 3 ml inhalation Q6H PRN wheezing 05/19/24 Unknown History (2.5 mg base)/3 mL nebulization soln apixaban 5 mg tablet 5 mg PO BID Blood Thinner 03/04/25 History cholecalciferol (vitamin D3) 50 100 mcg PO DAILY Suppl ement 11/08/24 03/04/25 History mcg (2,000 unit) capsule clopidogrel 75 mg tablet 75 mg PO DAILY Antiplatelet 11/08/24 03/04/25 History pantoprazole 40 mg tablet,delayed 40 mg PO DAILY Decre ase stomach 11/08/24 03/04/25 History release acid tacrolimus 0.75 mg tablet,extended 1.5 mg PO DAILY Imm unosuppressant 11/08/24 03/04/25 History release 24 hr (Envarsus XR) magnesium oxide 400 mg (241.3 mg 400 mg PO DAILY Suppl ement 12/16/24 03/04/25 History magnesium) tablet melatonin 5 mg tablet 5 mg PO QHS INSOMNIA 5 03/04/25 History prednisone 5 mg tablet 5 mg PO DAILY liver transpla nt 12/16/24 03/04/25 History albuterol sulfate 90 mcg/actuation 1 - 2 puff inhalati on Q4H PRN 03/05/25 Unknown History aerosol inhaler Shortness Of Breath doxazosin 8 mg tablet 8 mg PO QHS 03/05/25 5 History gabapentin 300 mg capsule 300 mg PO BID PRN NERVE PAIN 03/05/25 Unknown History isosorbide mononitrate 30 mg 30 mg PO DAILY 03/05/25 0 03/04/25 History tablet,extended release 24 hr losartan 25 mg tablet 25 mg PO DAILY 03/05/2502/05 History metoprolol tartrate 25 mg tablet 25 mg PO BID 03/05/25 03/04/25 History sodium bicarbonate 650 mg tablet 1,300 mg PO BID 03/0503/04/25 History trazodone 50 mg tablet 50 mg PO QHS 03/05/25 History cefdinir 300 mg capsule 300 mg PO DAILY #4 caps 12/01 Unknown Rx furosemide 20 mg tablet (Lasix) 60 mg (3 x 20 mg) PO D AILY 30 days 03/08/25 Unknown Rx #90 tabs Allergy/AdvReac Type Severity Reaction Status Date / Time propoxyphene napsylate (From Allergy Hives Verified 05/05/25 06:45 Darvocet-N) venom-honey bee (bee venom Allergy Hives Verified 05/05/25 06:45 (honey bee)) Family History Father Arthritis Cancer Lung cancer, 1990 CAD (coronary artery disease) Mother CAD (coronary artery disease) Diet 2012 Surgical History History of renal transplant S/P femoral-femoral bypass surgery History of quadruple bypass S/P pericardial window creation (~1991) History of lung biopsy (~2007) Renal transplant recipient History of renal transplant Social History household members: spouse housing: house Smoking Status: Former smoker pack-years: 19 Tobacco: How many years used: 15 alcohol intake: never substance use type: does not use ROS ROS ED ROS Narrative Review of systems positive for chest pain and heart palpitations with history of atrial fibrillation. No fevers or chills, no nausea or vomiting. No exacerbating or alleviating factors. EXAM Physical Exam Narrative Exam Narrative: Afebrile. Vital signs noted. Nontoxic-appearing. Mildly anxious. Cardiovascular examination reveals an irregularly irregular tachycardia at approximately 103 bpm. Lungs clear to auscultation bilaterally. Abdomen soft nontender with positive bowel sounds. No guarding or rebound. Neurological examination nonfocal, nonlateralizing. No appreciable pedal edema. Const Vital Signs: 05/05/25 06:42 05/05/25 07:07 05/05/25 07:42 Temperature 97.5 F L Temperature Source Oral Pulse Rate 103 H 93 Respiratory Rate 22 H 17 Blood Pressure 137/105 H Blood Pressure Mean 115 Pulse Ox 97 99 Oxygen Delivery Method Room Air Room Air Room Air 05/05/25 08:00 05/05/25 09:00 Temperature Temperature Source Pulse Rate 96 58 L Respiratory Rate 15 16 Blood Pressure 147/101 H 157/91 H Blood Pressure Mean 116 113 Pulse Ox 99 99 Oxygen Delivery Method MDM MDM MDM Narrative Medical decision making narrative: The differential diagnosis includes but not limited to atrial fibrillation with RVR versus A-fib that is rate controlled versus ACS versus chest pain versus pneumothorax versus pneumonia. History and physical does not support pneumonia or pneumothorax. Comprehensive workup was pursued. Currently is rate controlled. He is not hypotensive. I see no emergent need for cardioversion currently. He was given a dose of Lopressor 5 mg intravenously for additional rate control. There is a possibility that he may cardiovert on his own. Additionally, I reviewed his prior records and ED visits including laboratory work. He has had elevated troponins in the past but he has history of CKD. In discussion with cardiology previously, it was thought that he had more of a type II demand ischemia as cause for the elevation of his troponins as well as his CKD. As long as his troponins are flat, I do feel that he would be able to be discharged for follow-up. Additionally, patient states he usually gets chest pain with his atrial fibrillation and when it resolves it goes away. In review of his ED visit he did receive morphine for his chest pain and he is requesting pain medications for chest pain as well today. EKG was obtained and interpreted by myself independently as atrial fibrillation with a rapid ventricular response but it is rate controlled at 103 bpm. There is a right bundle branch block. He does have mild ST depression laterally. When compared to prior, he does have ST depression laterally on previous EKG. I reviewed his laboratory work and he has normal white count of 4.9 with hemoglobin stable at 10.2, hematocrit 32.2, platelet count low at 74. When compared to prior labs, he has chronic thrombocytopenia. Electrolyte panel shows normal sodium of 141 with potassium 4.5, BUN of 49 and creatinine 2. 8 9 consistent with his chronic kidney disease when compared to prior labs as well. Glucose normal at 93. Initial high-sensitivity troponin is 71, higher than has been in the past, but has had chronic elevation in the 40s and 50s when compared to prior labs. Additionally, I reviewed his prior ED visits that he has been admitted and had an echocardiogram with preserved ejection fraction ranging from 40 to 45% but he has LV systolic dysfunction. In discussion with the patient, he states that he is followed by the [facility] filtering machine tender helper Dr. Perez. He states that he had catheterization a few years ago, and they were having difficulty opening his arteries, and decided on medical management. While awaiting his second troponin to return, it appeared on the monitor that he cardioverted. Repeat examination showed improvement of his pain. RN thinks that the patient may have cardioverted spontaneously on the monitor. Repeat EKG was obtained and interpreted by myself independently as normal sinus rhythm at [address] changes. No STEMI. His slight ST depression remains laterally. His repeat troponin is 66. I do think that is probably secondary to demand ischemia and his troponins are flat. I discussed patient with Dr. Pool who agrees with the patient continuing his Eliquis and medications and following up with his filtering machine tender helper to [facility]. Additionally, patient states he has an appointment with an typesetter perforator operator for his atrial fibrillation. I feel he can be discharged safely home with follow-up. Return instructions reviewed. Disposition is discharged home in stable condition. History & Record Review Discussion w/independent historian: Patient Additional record(s) reviewed:: Prior ED visit and Prior labs Lab Data Attestation: I reviewed the patient's lab results. Labs: Laboratory Results - last 24 hr 05/05/25 05/05/25 06:46 08:47 WBC 4.9 RBC 3.42 L Hgb 10.2 L Hct 32.2 L MCV 94.2 H MCH 29.8 MCHC 31.7 L RDW Std Deviation 53.2 H RDW Coeff of [place] 15.4 H Plt Count 74 L MPV 12.0 Immature Gran % (Auto) 0.200 Neut % (Auto) 54.2 Lymph % (Auto) 35.4 Price % (Auto) 7.8 Eos % (Auto) 2.0 Baso % (Auto) 0.4 Absolute Neuts (auto) 2.7 Absolute Lymphs (auto) 1.73 Nucleated RBC % 0 Differential Comment SCANNED Platelet Estimate MOD DEC Sodium 141 Potassium 4.5 Chloride 107 Carbon Dioxide 20.6 L Anion Gap 13 BUN 49 H Creatinine 2.89 H Estim Creat Clear Calc 24.83 L Est GFR (MDRD) Non-Af 25 L BUN/Creatinine Ratio 17.1 Glucose 93 Calcium 9.5 Troponin T High Sens 71 H* D Troponin T Hi Sens 2 Hr 66 H* Radiography Diagnostic Testing: Clinical Impression(s) from Imaging Studies Chest X-Ray 05/05/25 07:10 IMPRESSION: There is cardiomegaly with prominent central vascular markings and increased interstitial markings consistent with CHF. There is an overlying component of fibrosis, unchanged. Small bilateral pleural effusions are present, similar to the prior. [facility] Triage Chief Complaint: Palpitations ED Provider: Reinier García Dx/Rx/DC Orders Clinical Impression: Atrial fibrillation, Chest pain, Elevated troponin Instructions: ED AFIB, ED Chest Pain, Uncertain Cause Prescriptions: No Action atorvastatin 80 MG tablet 80 mg PO QHS Patient Comments: acetaminophen 500 MG tablet 1,000 mg PO Q8 PRN (Reason: fever or pain) ipratropium-albuterol 0.5 mg-3 mg(2.5 mg base)/3 mL solution for nebulization 3 ml inhalation Q6H PRN (Reason: wheezing) Envarsus XR 0.75 mg tablet extended release 24 hr 1.5 mg PO DAILY cholecalciferol (vitamin D3) 50 mcg (2,000 unit) capsule 100 mcg PO DAILY clopidogrel 75 mg tablet 75 mg PO DAILY pantoprazole 40 mg tablet,delayed release (DR/EC) 40 mg PO DAILY doxazosin 8 mg tablet 8 mg PO QHS gabapentin 300 mg capsule 300 mg PO BID PRN (Reason: NERVE PAIN) trazodone 50 mg tablet 50 mg PO QHS isosorbide mononitrate 30 mg tablet extended release 24 hr 30 mg PO DAILY sodium bicarbonate 650 mg tablet 1,300 mg PO BID losartan 25 mg tablet 25 mg PO DAILY metoprolol tartrate 25 mg tablet 25 mg PO BID albuterol sulfate 1 INHALER inhaler 1 - 2 puff inhalation Q4H PRN (Reason: Shortness Of Breath) cefdinir 300 mg Capsule 300 mg PO DAILY Qty: 4 0RF furosemide [Lasix] 20 mg tablet 60 mg PO DAILY 30 Days Qty: 90 2RF apixaban 5 mg tablet 5 mg PO BID prednisone 5 mg tablet 5 mg PO DAILY magnesium oxide 400 mg (241.3 mg magnesium) tablet 400 mg PO DAILY melatonin 5 mg tablet 5 mg PO QHS Primary Care Provider: Melissa Judd Referrals: Melissa Judd, [employer] RADIO TECHNICIAN [Primary Care Provider] - Activity Restrictions/Additional Instructions: Take your medications as previously directed especially your Eliquis and your metoprolol. Follow-up with your filtering machine tender helper at the [facility], and with the typesetter perforator operator as scheduled. Return with new or worsening symptoms. Print Language: [place] Disposition Disposition: Home, Self Care
--- NOTE | 2025-05-05 07:10 | RAD_ITS ---
PROCEDURE: CHEST 1 VIEW (PORTABLE) 05/05/2025 REASON FOR EXAM: CHEST PAIN TECHNIQUE: Frontal view of the chest. COMPARISON: April 22, 2025 FINDINGS: Sternotomy wires are noted. There is cardiomegaly with prominent central vascular markings and increased interstitial markings consistent with CHF. There is an overlying component of fibrosis, unchanged. Small bilateral pleural effusions are present, similar to the prior. There is no pneumothorax. There is no acute bony abnormality. Aortic calcifications are noted. RAD/Chest 1 View (Portable) IMPRESSION: There is cardiomegaly with prominent central vascular markings and increased in terstitial markings consistent with CHF. There is an overlying component of fibrosis, unchanged. Small bilateral pleural effusions are present, similar to the prior. Reading Location: [facility]
--- NOTE | 2025-05-05 07:15 | EKG12_ITS ---
Test Reason : REPEAT Blood Pressure : */* mmHG Vent. Rate : 62 BPM Atrial Rate : 62 BPM P-R Int : 138 ms QRS Dur : 146 ms QT Int : 456 ms P-R-T Axes : 61 -75 229 degrees QTcB Int : 462 ms Normal sinus rhythm Right bundle branch block Left anterior fascicular block Bifascicular block Abnormal ECG Confirmed by KAITLIN BURT, LANCE ([id number]), commercial production editor EDSON PEREIRA ([id number]) on 05/06/2025 8:37:19 AM Referred By: Confirmed By: LANCE MADRIGAL MD
[2025-05-05 07:20] LABS: Hematocrit 32.2 % (40-54); Hemoglobin 10.2 g/dL (13.0-16.5); Immature Granulocytes Count 0.010 X10^3/uL (0.0-0.0); Mean Corp Hgb Conc 31.7 g/dL (32-36); Mean Corpuscular Volume 94.2 fL (80-94); Mean Platelet Vol. 12.0 fl (6.2-12.0); NRBC Flagged by Analyzer 0 % (0-5); POSITIVE COUNT YES; Platelet Count 74 K/mm3 (150-450); RBC Distribution Width CV 15.4 % (11.6-14.6); RBC Distribution Width SD 53.2 fl (35.1-43.9); Red Blood Count 3.42 M/mm3 (4.6-6.2); White Blood Count 4.9 K/mm3 (4.4-11.0)
[2025-05-05 07:22] LABS: Differential Indicated SCAN CRITERIA MET
[2025-05-05 07:42] VITALS: PULSE 93; RESP 17; O2SAT 99
[2025-05-05 07:43] LABS: Differential Comment SCANNED
[2025-05-05 07:44] LABS: Anion Gap 13 (5-15); BUN 49 mg/dL (4-19); BUN/Creat Ratio 17.1 RATIO (10-20); Calcium,Total 9.5 mg/dL (7.6-11.0); Carbon Dioxide 20.6 mmol/L (21.0-32.0); Chloride 107 mmol/L (98-108); Estimated Creatinine Clearance 24.83 ml/min (50-250); Glucose 93 mg/dL (70-99); Potassium 4.5 mmol/L (3.3-5.1)
[2025-05-05 07:55] LABS: Troponin T High Sensitivity 71 ng/L (<=22)
[2025-05-05 08:00] VITALS: BP 147/101; PULSE 96; RESP 15; O2SAT 99
[2025-05-05 09:00] VITALS: BP 157/91; PULSE 58; RESP 16; O2SAT 99
[2025-05-05 09:47] LABS: Troponin T High Sens 2 HR 66 ng/L (<=22)
[2025-05-05 10:00] VITALS: BP 148/89; PULSE 56; RESP 13; O2SAT 100
[2025-05-05 10:17] VITALS: BP 148/89; PULSE 56; RESP 13; TEMP 36.7; O2SAT 100
== END 2025-05-05 10:21 | disposition home or self-care (01) ==
PROVIDERS: Emergency Provider Emergency Medicine; PCP Clinical Nurse Specialist Adult Health; Visit Provider Emergency Medicine
DX: I48.91 Unspecified atrial fibrillation (principal); I13.2 Hypertensive heart and chronic kidney disease with heart failure and with stage 5 chronic kidney disease, or end stage renal disease; N18.6 End stage renal disease; I50.31 Acute diastolic (congestive) heart failure; J44.9 Chronic obstructive pulmonary disease, unspecified; I25.10 Atherosclerotic heart disease of native coronary artery without angina pectoris; R00.2 Palpitations; Z87.891 Personal history of nicotine dependence; I25.2 Old myocardial infarction; Z79.899 Other long term (current) drug therapy; K21.9 Gastro-esophageal reflux disease without esophagitis; R79.89 Other specified abnormal findings of blood chemistry; R07.9 Chest pain, unspecified; Z79.02 Long term (current) use of antithrombotics/antiplatelets
CPT/HCPCS: 71045; 80048; 84484; 85025; 93005; 96374; 96375; 99283; A4216

== ENCOUNTER 2025-07-01 21:47 | Emergency (ER) | payer OTHER, SELFPAY ==
[2025-07-01 21:49] VITALS: BP 176/117; PULSE 95; RESP 18; TEMP 36.2; O2SAT 99; BMI 24.1
--- NOTE | 2025-07-01 21:54 | EKG12_ITS ---
Test Reason : CP Blood Pressure : */* mmHG Vent. Rate : 99 BPM Atrial Rate : * BPM P-R Int : * ms QRS Dur : 146 ms QT Int : 368 ms P-R-T Axes : * -77 112 degrees QTcB Int : 472 ms Atrial fibrillation Right bundle branch block Left anterior fascicular block Bifascicular block T wave abnormality, consider lateral ischemia Abnormal ECG Confirmed by KAITLIN BURT, LANCE ([id number]), assignment editor POLY EVANGELISTA ([id number]) on 07/02/2025 11:03:31 AM Referred By: Confirmed By: LANCE MADRIGAL MD
[2025-07-01 22:23] LABS: Hematocrit 28.0 % (40-54); Hemoglobin 9.4 g/dL (13.0-16.5); Immature Granulocytes Count 0.010 X10^3/uL (0.0-0.0); Mean Corp Hgb Conc 33.6 g/dL (32-36); Mean Corpuscular Volume 94.0 fL (80-94); Mean Platelet Vol. 11.9 fl (6.2-12.0); NRBC Flagged by Analyzer 0 % (0-5); POSITIVE COUNT YES; Platelet Count 77 K/mm3 (150-450); RBC Distribution Width CV 14.4 % (11.6-14.6); RBC Distribution Width SD 49.1 fl (35.1-43.9); Red Blood Count 2.98 M/mm3 (4.6-6.2); White Blood Count 5.0 K/mm3 (4.4-11.0)
--- NOTE | 2025-07-01 22:30 | RAD_ITS ---
PROCEDURE: CHEST 1 VIEW (PORTABLE) 07/01/2025 REASON FOR EXAM: CHEST PAIN TECHNIQUE: Frontal view of the chest. COMPARISON: 05/05/2025, 04/22/2025, and 03/25/2025 FINDINGS: LUNGS AND PLEURA: Chronic left pleural calcifications with mid and lower lung opacity. Peripheral hazy right lung opacity is unchanged. No pleural effusion or pneumothorax. HEART AND MEDIASTINUM: The cardiac silhouette is enlarged. The mediastinal contour is normal. Median sternotomy wires in place. BONES: No acute osseous abnormality. OTHER: Stent graft again projected over the right lung apex. RAD/Chest 1 View (Portable) IMPRESSION: No significant change since last exam. Reading Location: [id number]
[2025-07-01 22:39] LABS: Anion Gap 12 (5-15); BUN 46 mg/dL (4-19); BUN/Creat Ratio 17.1 RATIO (10-20); Calcium,Total 9.3 mg/dL (7.6-11.0); Carbon Dioxide 25.3 mmol/L (21.0-32.0); Chloride 104 mmol/L (98-108); Estimated Creatinine Clearance 26.97 ml/min (50-250); Glucose 110 mg/dL (70-99); Potassium 3.9 mmol/L (3.3-5.1)
[2025-07-01 22:42] LABS: Troponin T High Sensitivity 79 ng/L (<=22)
[2025-07-01 23:29] VITALS: PULSE 57; RESP 18; O2SAT 95
[2025-07-02] VITALS: PULSE 60; RESP 18; O2SAT 97
[2025-07-02 00:10] LABS: Magnesium 1.7 mg/dL (1.5-2.2)
--- NOTE | 2025-07-02 00:34 | EKG12_ITS ---
Test Reason : DYSRHYTHMIA Blood Pressure : */* mmHG Vent. Rate : 55 BPM Atrial Rate : 55 BPM P-R Int : 142 ms QRS Dur : 150 ms QT Int : 438 ms P-R-T Axes : -3 -70 191 degrees QTcB Int : 419 ms Sinus bradycardia with Premature atrial complexes Right bundle branch block Left anterior fascicular block Bifascicular block T wave abnormality, consider lateral ischemia Abnormal ECG Confirmed by KAITLIN BURT, LANCE ([id number]), editor index POLY EVANGELISTA ([id number]) on 07/02/2025 11:03:19 AM Referred By: Confirmed By: LANCE MADRIGAL MD
[2025-07-02 01:05] VITALS: BP 157/89; PULSE 54; RESP 12; O2SAT 95
[2025-07-02 01:29] LABS: Troponin T High Sens 2 HR 106 ng/L (<=22)
[2025-07-02 02:00] VITALS: BP 121/62; PULSE 63; RESP 18; O2SAT 99
--- NOTE | 2025-07-02 02:31 | EDS_ITS ---
HPI History of Present Illness Chief Complaint: Chest Pain Informant: patient Narrative Narrative: Patient is a 55-year-old male with past medical chronic kidney disease COPD CHF paroxysmal atrial fibrillation currently on Eliquis and hypertension. He has been seen in the ER multiple times in the past secondary to this. He reports that he is typically in sinus rhythm and when he goes into atrial fibrillation he experiences chest pain. He states he was at work this evening and his chest began to hurt and his watch alerted him that he was in atrial fibrillation. He states that his right was little over 100 bpm. He states that this continued to occur for the next few hours despite him trying to rest and relax and secondary to his he comes in for evaluation. He denies any excessive stimulant use or illicit drug use as a potential cause for his atrial fibrillation. He does state that he sees an special education teaching assistant at [facility] and was evaluated by them last month and at this point he reports the plan is to continue his oral medication and not perform any intervention such as an ablation [facility] Medical History Paroxysmal atrial fibrillation due to heart valve disorder Moderate left ventricular systolic dysfunction (LVSD) Acute heart failure with preserved ejection fraction (HFpEF) Chest pain Atherosclerotic heart disease of [place] coronary artery without angina pectoris NSTEMI (non-ST elevated myocardial infarction) Exertional chest pain Thrombocytopenia Troponin I above reference range Hypertension Immunosuppressed status PVD (peripheral vascular disease) 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 Pulmonary embolism Neurogenic bladder Hyperparathyroidism Hyperhomocystinemia GERD (gastroesophageal reflux disease) DVT (deep venous thrombosis) Depression Claudication VIC (obstructive sleep apnea) Chronic obstructive pulmonary disease (COPD) Chronic kidney disease, stage 3 Home Medications ?Medication ?Instructions ?Recorded ?Last Taken ?Type atorvastatin 80 mg tablet 80 mg PO QHS cholesterol 03/04/25 History acetaminophen 500 mg tablet 1,000 mg PO Q8 PRN fever o r pain 11/15/23 Unknown History ipratropium 0.5 mg-albuterol 3 mg 3 ml inhalation Q6H PRN wheezing 05/19/24 Unknown History (2.5 mg base)/3 mL nebulization soln apixaban 5 mg tablet 5 mg PO BID Blood Thinner 03/04/25 History cholecalciferol (vitamin D3) 50 100 mcg PO DAILY Suppl ement 11/08/24 03/04/25 History mcg (2,000 unit) capsule clopidogrel 75 mg tablet 75 mg PO DAILY Antiplatelet 11/08/24 03/04/25 History pantoprazole 40 mg tablet,delayed 40 mg PO DAILY Decre ase stomach 11/08/24 03/04/25 History release acid tacrolimus 0.75 mg tablet,extended 1.5 mg PO DAILY Imm unosuppressant 11/08/24 03/04/25 History release 24 hr (Envarsus XR) magnesium oxide 400 mg (241.3 mg 400 mg PO DAILY Suppl ement 12/16/24 03/04/25 History magnesium) tablet melatonin 5 mg tablet 5 mg PO QHS INSOMNIA 5 03/04/25 History prednisone 5 mg tablet 5 mg PO DAILY liver transpla nt 12/16/24 03/04/25 History albuterol sulfate 90 mcg/actuation 1 - 2 puff inhalati on Q4H PRN 03/05/25 Unknown History aerosol inhaler Shortness Of Breath doxazosin 8 mg tablet 8 mg PO QHS 03/05/25 5 History gabapentin 300 mg capsule 300 mg PO BID PRN NERVE PAIN 03/05/25 Unknown History isosorbide mononitrate 30 mg 30 mg PO DAILY 03/05/25 0 03/04/25 History tablet,extended release 24 hr losartan 25 mg tablet 25 mg PO DAILY 03/05/2502/05 History metoprolol tartrate 25 mg tablet 25 mg PO BID 03/05/25 03/04/25 History sodium bicarbonate 650 mg tablet 1,300 mg PO BID 03/0503/04/25 History trazodone 50 mg tablet 50 mg PO QHS 03/05/25 History cefdinir 300 mg capsule 300 mg PO DAILY #4 caps 12/01 Unknown Rx furosemide 20 mg tablet (Lasix) 60 mg (3 x 20 mg) PO D AILY 30 days 03/08/25 Unknown Rx #90 tabs Allergy/AdvReac Type Severity Reaction Status Date / Time propoxyphene napsylate (From Allergy Hives Verified 07/01/25 21:49 Darvocet-N) venom-honey bee (bee venom Allergy Hives Verified 07/01/25 21:49 (honey bee)) Family History Father Arthritis Cancer Lung cancer, 1990 CAD (coronary artery disease) Mother CAD (coronary artery disease) Diet 2012 Surgical History History of renal transplant S/P femoral-femoral bypass surgery History of quadruple bypass S/P pericardial window creation (~1991) History of lung biopsy (~2007) Renal transplant recipient History of renal transplant Social History household members: spouse housing: house Smoking Status: Former smoker pack-years: 19 Tobacco: How many years used: 15 alcohol intake: never substance use type: does not use ROS ROS ED Constitutional Constitutional ED: Denies chills or fever(s) Eyes Eyes: Denies blurry vision or change in vision ENT ENT ED: Denies sore throat Cardiovascular Cardiovascular: Reports chest pain, palpitations and racing heartbeat Respiratory/Chest Respiratory/Chest: Denies cough or dyspnea Gastrointestinal Gastrointestinal: Denies abdominal pain, diarrhea, nausea or vomiting Musculoskeletal Musculoskeletal: Denies back pain Integumentary Denies rash Neurologic Neurologic: Denies headache(s) Hematologic/Lymphatic Hematologic/Lymphatic: Reports easy bleeding and easy bruising EXAM Physical Exam Const Vital Signs: 07/01/25 21:49 07/01/25 23:29 07/01/25 23:29 Temperature 97.2 F L Temperature Source Temporal Pulse Rate 95 57 L Respiratory Rate 18 18 Respiratory Pattern Blood Pressure 176/117 H Blood Pressure Mean 136 Pulse Ox 99 95 Oxygen Delivery Method Room Air Nasal Cannula Room Air 07/01/25 23:29 07/02/25 00:00 07/02/25 01:05 Temperature Temperature Source Pulse Rate 60 54 L Respiratory Rate 18 12 Respiratory Pattern Normal Blood Pressure 157/89 H Blood Pressure Mean 111 Pulse Ox 97 95 Oxygen Delivery Method 07/02/25 02:00 07/02/25 02:42 Temperature 97.4 F L Temperature Source Pulse Rate 63 55 L Respiratory Rate 18 16 Respiratory Pattern Blood Pressure 121/62 H 161/94 H Blood Pressure Mean 81 116 Pulse Ox 99 97 Oxygen Delivery Method Room Air Positive well nourished and well developed General Appearance ED: well developed HEENT HEENT Narrative: Normocephalic atraumatic Eyes PERRL and EOMs intact bilaterally General Eye ED: Negative for scleral icterus Neck supple and no JVD Neck Narrative: No nuchal rigidity or meningeal signs Chest Wall palpation of chest normal Chest Narrative: No bony deformity or subcutaneous emphysema noted Resp normal respiratory effort Resp Narrative: Breath sounds are diminished throughout with expiratory wheezes as well as faint rhonchi noted in the bilateral bases No signs of respiratory distress Cardio Rate: other Other Details: Irregularly irregular rhythm with a regular rate consistent with history of atrial fibrillation Extremity Extremity Narrative: There is +3 pitting edema to the bilateral lower extremities that is equal and symmetric Neuro oriented x3, CN's II-XII intact bilaterally and no sensory deficits noted Sensorium / Orientation: alert Motor Exam: strength 5/5 throughout Psych mental status grossly normal Skin Skin Narrative: Chronic stasis changes are noted without secondary findings to suggest ischemia or infection MDM MDM MDM Narrative Medical decision making narrative: Patient arrived to the ER in atrial fibrillation but as she reported it was slightly above 100 bpm at work it was now in the low 60s. Basic laboratory studies were obtained to check for potential cause of the A-fib such as acute blood loss anemia thyroid dysfunction or electrolyte abnormality. Patient's creatinine is elevated at 2.66 but chart review reveals this is chronic in nature and near his baseline. Blood volume is slightly low at 9.4 but chart review reveals this is chronic in nature and also at baseline. There is no clinically significant [place] abnormalities such as hyperkalemia or hypomagnesemia. TSH is normal as well going against thyroid dysfunction. Initial troponin was elevated at 79 but chart review reveals that he is chronically elevated most likely due to his underlying chronic kidney disease. The 2-hour delta troponin however increased to a value of 106. He was reevaluated and now is in normal sinus rhythm which was confirmed by twelve-lead EKG. he also reports he has no chest discomfort. He states that he also underwent a heart cath just roughly [address] [facility] and was told that his disease is too severe to perform any intervention and that he can only undergo medical management. I did discuss the case with fern picker Dr. Byrd. He agrees at this time as the patient is pain-free with stable vitals and chronically elevated troponins that there is no need for intervention. Therefore as the patient is now in normal sinus rhythm with stable vitals and complete resolution of pain he will be discharged home and advised to continue all of his medication and follow-up with his fern picker for repeat evaluation. Patient was informed of and is agreeable with this plan of care History & Record Review Discussion w/independent historian: Patient Lab Data Attestation: I reviewed the patient's lab results. Labs: Laboratory Results - last 24 hr 07/01/25 07/01/25 00:17 22:10 WBC 5.0 RBC 2.98 L Hgb 9.4 L Hct 28.0 L MCV 94.0 MCH 31.5 MCHC 33.6 RDW Std Deviation 49.1 H RDW Coeff of [place] 14.4 Plt Count 77 L MPV 11.9 Immature Gran % (Auto) 0.200 Neut % (Auto) 59.9 Lymph % (Auto) 30.1 [place] % (Auto) 8.8 Eos % (Auto) 0.6 Baso % (Auto) 0.4 Absolute Neuts (auto) 3.0 Absolute Lymphs (auto) 1.51 Nucleated RBC % 0 Sodium 141 Potassium 3.9 Chloride 104 Carbon Dioxide 25.3 Anion Gap 12 BUN 46 H Creatinine 2.66 H Estim Creat Clear Calc 26.97 L Est GFR (MDRD) Non-Af 27 L BUN/Creatinine Ratio 17.1 Glucose 110 H Calcium 9.3 Magnesium 1.7 Troponin T High Sens 79 H* D Troponin T Hi Sens 2 Hr 106 H* TSH 1.390 Radiography Diagnostic Testing: Clinical Impression(s) from Imaging Studies Chest X-Ray 07/01/25 22:30 IMPRESSION: No significant change since last exam. Reading Location: [facility] Chest x-ray as interpreted by the emergency medicine physician reveals cardiomegaly with vascular congestion which is stable and chronic in nature when compared to previous exam Management Discussion w/another healthcare provider: Janitorial Services Supervisor Discharge Plan Triage Chief Complaint: Chest Pain ED Provider: Zhou Hines Dx/Rx/DC Orders Clinical Impression: Paroxysmal atrial fibrillation, Chronic kidney disease, Chronic anemia, Current use of snf anticoagulation, Hypertension Instructions: AFib Dc, CKD Dc Prescriptions: No Action atorvastatin 80 MG tablet 80 mg PO QHS Patient Comments: acetaminophen 500 MG tablet 1,000 mg PO Q8 PRN (Reason: fever or pain) ipratropium-albuterol 0.5 mg-3 mg(2.5 mg base)/3 mL solution for nebulization 3 ml inhalation Q6H PRN (Reason: wheezing) Envarsus XR 0.75 mg tablet extended release 24 hr 1.5 mg PO DAILY cholecalciferol (vitamin D3) 50 mcg (2,000 unit) capsule 100 mcg PO DAILY clopidogrel 75 mg tablet 75 mg PO DAILY pantoprazole 40 mg tablet,delayed release (DR/EC) 40 mg PO DAILY doxazosin 8 mg tablet 8 mg PO QHS gabapentin 300 mg capsule 300 mg PO BID PRN (Reason: NERVE PAIN) trazodone 50 mg tablet 50 mg PO QHS isosorbide mononitrate 30 mg tablet extended release 24 hr 30 mg PO DAILY sodium bicarbonate 650 mg tablet 1,300 mg PO BID losartan 25 mg tablet 25 mg PO DAILY metoprolol tartrate 25 mg tablet 25 mg PO BID albuterol sulfate 1 INHALER inhaler 1 - 2 puff inhalation Q4H PRN (Reason: Shortness Of Breath) cefdinir 300 mg Capsule 300 mg PO DAILY Qty: 4 0RF furosemide [Lasix] 20 mg tablet 60 mg PO DAILY 30 Days Qty: 90 2RF apixaban 5 mg tablet 5 mg PO BID prednisone 5 mg tablet 5 mg PO DAILY magnesium oxide 400 mg (241.3 mg magnesium) tablet 400 mg PO DAILY melatonin 5 mg tablet 5 mg PO QHS Stand Alone Forms: Work / School Excuse Primary Care Provider: Melissa Judd Referrals: Melissa Judd, JUNIOR WEB DESIGNER [Primary Care Provider, Family Practice] Activity Restrictions/Additional Instructions: Please continue all of your home medications as directed by your doctor. Follow-up with your fern picker for repeat evaluation and return to the ER should you have any further concerns or worsening of symptoms. Print Language: Afghan Disposition Disposition: Home, Self Care Discharge Date/Time: 07/02/25 02:43
[2025-07-02 02:42] VITALS: BP 161/94; PULSE 55; RESP 16; TEMP 36.3; O2SAT 97
== END 2025-07-02 02:43 | disposition home or self-care (01) ==
PROVIDERS: Emergency Provider Emergency Medicine; PCP Clinical Nurse Specialist Adult Health; Visit Provider Emergency Medicine
DX: I48.0 Paroxysmal atrial fibrillation (principal); I13.0 Hypertensive heart and chronic kidney disease with heart failure and stage 1 through stage 4 chronic kidney disease, or unspecified chronic kidney disease; I50.32 Chronic diastolic (congestive) heart failure; J44.9 Chronic obstructive pulmonary disease, unspecified; N18.30 Chronic kidney disease, stage 3 unspecified; D64.9 Anemia, unspecified; I25.10 Atherosclerotic heart disease of native coronary artery without angina pectoris; G47.33 Obstructive sleep apnea (adult) (pediatric); Z79.01 Long term (current) use of anticoagulants; Z79.02 Long term (current) use of antithrombotics/antiplatelets; Z79.899 Other long term (current) drug therapy; I25.2 Old myocardial infarction; Z87.891 Personal history of nicotine dependence; Z86.718 Personal history of other venous thrombosis and embolism; Z86.711 Personal history of pulmonary embolism; Z94.0 Kidney transplant status; Z95.1 Presence of aortocoronary bypass graft
CPT/HCPCS: 71045; 80048; 83735; 84443; 84484; 85025; 93005; 96374; 96375; 99283; A4216; J2405

== ENCOUNTER 2025-08-20 07:28 | Emergency (ER) | payer OTHER, SELFPAY ==
[2025-08-20] VITALS (14 sets, daily range): BP systolic 149–185; BP diastolic 81–123; PULSE 54–87; RESP 11–18; TEMP 36.4; O2SAT 92–99; BMI 25.0
--- NOTE | 2025-08-20 07:41 | EKG12_ITS ---
Test Reason : Blood Pressure : */* mmHG Vent. Rate : 99 BPM Atrial Rate : * BPM P-R Int : * ms QRS Dur : 156 ms QT Int : 412 ms P-R-T Axes : * -78 97 degrees QTcB Int : 528 ms Atrial fibrillation Right bundle branch block Left anterior fascicular block Bifascicular block Abnormal ECG Confirmed by KYRA BURT, JOESPH ([id number]), visual effects editor POLY EVANGELISTA ([id number]) on 08/23/2025 8:16:10 AM Referred By: Confirmed By: JOESPH RAE MD
--- NOTE | 2025-08-20 07:43 | ED.VIS.CHEST ---
HPI History of Present Illness Chief Complaint: Chest Pain Detail of Chief Complaint: Chest pain and atrial fibrillation Informant: patient Narrative Narrative: Patient presents with complaint of chest pain and being in atrial fibrillation. Patient states that he was at work for about an hour when he started having chest discomfort and felt like he went into A-fib. He was able to do an EKG that showed A-fib with rate in the low 100s. He often gets this chest pain associated with the A-fib. Currently being followed by an operations accountant and scheduled to be seen again in October. Currently treated with medication. He does often go in and out of atrial fibrillation. He is anticoagulated with Eliquis. Patient has been compliant with his medications. He denies recent travel or surgery. He has had history of prior CABG. History of PE. Patient has had a renal transplant. Heart cath more than a year ago at [facility] and was told he was not a candidate for any type of intervention [facility] Medical History Paroxysmal atrial fibrillation due to heart valve disorder Moderate left ventricular systolic dysfunction (LVSD) Acute heart failure with preserved ejection fraction (HFpEF) Chest pain Atherosclerotic heart disease of [place] coronary artery without angina pectoris NSTEMI (non-ST elevated myocardial infarction) Exertional chest pain Thrombocytopenia Troponin I above reference range Hypertension Immunosuppressed status PVD (peripheral vascular disease) End stage renal disease detention systemic steroid user Pulmonary embolism Neurogenic bladder Hyperparathyroidism Hyperhomocystinemia GERD (gastroesophageal reflux disease) DVT (deep venous thrombosis) Depression Claudication VIC (obstructive sleep apnea) Chronic obstructive pulmonary disease (COPD) Chronic kidney disease, stage 3 Home Medications Medication Instructions Recorded Last Taken Type atorvastatin 80 mg tablet 80 mg PO QHS cholesterol 12/30/17 03/04/25 History acetaminophen 500 mg tablet 1,000 mg PO Q8 PRN fever or pain 11/15/23 Unknown History ipratropium 0.5 mg-albuterol 3 mg 3 ml inhalation Q6H PRN wheezing 05/19/24 Unknown History (2.5 mg base)/3 mL nebulization soln apixaban 5 mg tablet 5 mg PO BID Blood Thinner 06/13/24 03/04/25 History cholecalciferol (vitamin D3) 50 100 mcg PO DAILY Supplement 11/08/24 03/04/25 History mcg (2,000 unit) capsule clopidogrel 75 mg tablet 75 mg PO DAILY Antiplatelet 11/08/24 03/04/25 History pantoprazole 40 mg tablet,delayed 40 mg PO DAILY Decrease stomach 11/08/24 03/04/25 History release acid tacrolimus 0.75 mg tablet,extended 1.5 mg PO DAILY Immunosuppressant 11/08/24 03/04/25 History release 24 hr (Envarsus XR) magnesium oxide 400 mg (241.3 mg 400 mg PO DAILY Supplement 12/16/24 03/04/25 History magnesium) tablet melatonin 5 mg tablet 5 mg PO QHS INSOMNIA 12/16/24 03/04/25 History prednisone 5 mg tablet 5 mg PO DAILY liver transplant 12/16/24 03/04/25 History albuterol sulfate 90 mcg/actuation 1 - 2 puff inhalation Q4H PRN 03/05/25 Unknown History aerosol inhaler Shortness Of Breath doxazosin 8 mg tablet 8 mg PO QHS 03/05/25 03/04/25 History gabapentin 300 mg capsule 300 mg PO BID PRN NERVE PAIN 03/05/25 Unknown History isosorbide mononitrate 30 mg 30 mg PO DAILY 03/05/25 03/04/25 History tablet,extended release 24 hr losartan 25 mg tablet 25 mg PO DAILY 03/05/25 03/04/25 History metoprolol tartrate 25 mg tablet 25 mg PO BID 03/05/25 03/04/25 History sodium bicarbonate 650 mg tablet 1,300 mg PO BID 03/05/25 03/04/25 History trazodone 50 mg tablet 50 mg PO QHS 03/05/25 03/04/25 History cefdinir 300 mg capsule 300 mg PO DAILY #4 caps 03/08/25 Unknown Rx furosemide 20 mg tablet (Lasix) 60 mg (3 x 20 mg) PO DAILY 30 days 03/08/25 Unknown Rx #90 tabs Allergy/AdvReac Type Severity Reaction Status Date / Time propoxyphene napsylate (From Allergy Hives Verified 08/20/25 07:32 Darvocet-N) venom-honey bee (bee venom Allergy Hives Verified 08/20/25 07:32 (honey bee)) Family History Father Arthritis Cancer Lung cancer, 1990 CAD (coronary artery disease) Mother CAD (coronary artery disease) Diet 2012 Surgical History History of renal transplant S/P femoral-femoral bypass surgery History of quadruple bypass S/P pericardial window creation (~1991) History of lung biopsy (~2007) Renal transplant recipient History of renal transplant Social History household members: spouse housing: house Smoking Status: Former smoker pack-years: 19 Tobacco: How many years used: 15 alcohol intake: never substance use type: does not use ROS ROS ED Review of Systems ROS Unobtainable: other Constitutional Constitutional ED: Reports lethargy; Denies chills, fever(s), sweats or weight loss Eyes Eyes: Denies blurry vision, change in vision or diplopia ENT ENT ED: Denies rhinorrhea or sore throat Cardiovascular Cardiovascular: Reports chest pain, palpitations and racing heartbeat; Denies orthopnea Respiratory/Chest Respiratory/Chest: Denies cough, dyspnea, dyspnea on exertion, orthopnea or sputum Gastrointestinal Gastrointestinal: Denies abdominal pain, diarrhea, nausea or vomiting Genitourinary Genitourinary ED: Denies dysuria, hematuria or urinary frequency Musculoskeletal Musculoskeletal: Denies arthralgias, back pain, myalgias or neck pain Integumentary Denies abscess, Abrasions or rash Neurologic Neurologic: Denies headache(s) or weakness Psychiatric Psychiatric: Denies anxiety, depression or suicidal thoughts Endocrine Endocrinology: Denies polydipsia, polyphagia or polyuria Hematologic/Lymphatic Hematologic/Lymphatic: Denies easy bleeding, easy bruising or lymphadenopathy Allergic/Immunologic Allergic/Immunologic ED: Denies mouth swelling, tongue swelling or urticaria EXAM Physical Exam Const Vital Signs: 08/20/25 07:29 08/20/25 07:34 08/20/25 07:36 Temperature 97.6 F L Temperature Source Oral Pulse Rate 87 Respiratory Rate 17 Respiratory Effort Normal Blood Pressure 152/123 H 177/117 H Blood Pressure Mean 132 137 Pulse Ox 96 Oxygen Delivery Method Room Air 08/20/25 07:39 08/20/25 07:45 08/20/25 07:46 Temperature Temperature Source Pulse Rate 86 65 Respiratory Rate 17 18 Respiratory Effort Blood Pressure 185/98 H Blood Pressure Mean 121 Pulse Ox 99 Oxygen Delivery Method Room Air 08/20/25 08:00 08/20/25 08:15 08/20/25 08:30 Temperature Temperature Source Pulse Rate 68 58 L 56 L Respiratory Rate 14 16 11 L Respiratory Effort Blood Pressure 177/100 H 179/119 H 151/86 H Blood Pressure Mean 123 138 104 Pulse Ox 97 97 96 Oxygen Delivery Method 08/20/25 08:45 08/20/25 08:45 08/20/25 09:00 Temperature Temperature Source Pulse Rate 54 L 54 L 58 L Respiratory Rate 14 Respiratory Effort Blood Pressure 149/83 H Blood Pressure Mean 101 Pulse Ox 97 97 97 Oxygen Delivery Method 08/20/25 09:00 08/20/25 09:15 08/20/25 09:30 Temperature Temperature Source Pulse Rate 58 L 55 L 61 Respiratory Rate 14 13 16 Respiratory Effort Blood Pressure 152/81 H 151/82 H 168/81 H Blood Pressure Mean 103 102 105 Pulse Ox 97 98 92 Oxygen Delivery Method 08/20/25 09:45 08/20/25 10:00 Temperature Temperature Source Pulse Rate 60 66 Respiratory Rate 16 14 Respiratory Effort Blood Pressure 156/84 H Blood Pressure Mean 107 Pulse Ox 97 99 Oxygen Delivery Method Positive well nourished and well developed General Appearance ED: well developed and NAD HEENT Reports TM's clear and moist mucous membranes normocephalic and atraumatic; Negative for trauma or tenderness Tympanic Membrane ED: Yes TM's clear Eyes PERRL and EOMs intact bilaterally General Eye ED: Negative for pale conjunctiva or scleral icterus Neck no lymphadenopathy, supple and no JVD General: Negative for tenderness Chest Wall inspection of chest normal and palpation of chest normal Chest: Negative for tenderness Resp normal respiratory effort and clear to auscultation bilaterally Effort and Inspection: Negative for respiratory distress or pain with movement Auscultation: Negative for rhonchi, wheezes or diminished lung sounds Cardio S1 normal heart sound, S2 normal heart sound and no murmurs; Negative for regular rate or regular rhythm Rhythm: abnormal rhythm irregularly irregular Peripheral Pulses: pulses 2+ throughout GI normal to inspection, nondistended, normoactive bowel sounds, soft to palpation, non-tender, non-distended and no masses Back/Spine no CVA tenderness and no thoracic nor lumbar tenderness Extremity normal to inspection General Extremety ED: Negative for edema General Extremity: Negative for edema Neuro oriented x3, CN's II-XII intact bilaterally, no sensory deficits noted and gait normal Sensorium / Orientation: awake, alert, oriented to person, oriented to place and oriented to time Motor Exam: strength 5/5 throughout and strength abnormal Psych mental status grossly normal Skin no rashes or lesions noted and no wounds MDM MDM MDM Narrative Medical decision making narrative: Patient presents with chest discomfort and intermittent bouts of A-fib. Sees cardiology in [place] and also has a operations accountant. Chronically ill patient with 2 renal transplants. History of sepsis from urinary source. EKG obtained on arrival shows A-fib with rate of 99 bpm with right bundle branch block and left anterior fascicular block. CBC with differential showed a white count of 5.8 with hemoglobin 10.6 and platelet count of 88,000. Chemistries unremarkable. First troponin elevated at 108 which looking back appears to be chronically elevated. Second troponin 2-hour delta was 104. 1 in department I did give him 10 mg of Cardizem IV and patient converted back to a sinus rhythm. Repeat EKG showed a sinus rhythm with rate of [address] changes. When compared with prior EKG from July 02, 2025 no changes noted. Patient's chest pain resolved and clinically looks well. He is not a surgical candidate from a cardiovascular standpoint and states that the EP physician is limited in what he can do for him and everybody just kind to try to keep him alive. I feel it safe to send patient home. He is advised to follow-up with his conditioner tumbler operator and EP physician. Patient to continue with his Eliquis anticoagulation Lab Data Attestation: I reviewed the patient's lab results. Labs: Laboratory Results - last 24 hr 08/20/25 08/20/25 07:35 09:32 WBC 5.6 RBC 3.52 L Hgb 10.6 L Hct 33.4 L MCV 94.9 H MCH 30.1 MCHC 31.7 L RDW Std Deviation 48.3 H RDW Coeff of [place] 13.8 Plt Count 88 L MPV 12.5 H Immature Gran % (Auto) 0.400 Neut % (Auto) 67.4 Lymph % (Auto) 24.1 [place] % (Auto) 6.8 Eos % (Auto) 0.9 Baso % (Auto) 0.4 Absolute Neuts (auto) 3.8 Absolute Lymphs (auto) 1.35 Nucleated RBC % 0 Sodium 140 Potassium 4.2 Chloride 101 Carbon Dioxide 26.5 Anion Gap 13 BUN 52 H Creatinine 2.45 H Estim Creat Clear Calc 29.29 L Est GFR (MDRD) Non-Af 30 L BUN/Creatinine Ratio 21.3 H Glucose 101 H Calcium 10.1 Troponin T High Sens 108 H* D Troponin T Hi Sens 2 Hr 104 H* Radiography Diagnostic Testing: Clinical Impression(s) from Imaging Studies Chest X-Ray 08/20/25 07:50 IMPRESSION: Mild interstitial edema. Cardiac enlargement. Scarring of the lung parenchyma particularly the right mid thorax. Reading Location: [id number] 1 view chest x-ray obtained interpreted by myself as increased markings right lower lobe as well as left lower lobe which appears to be chronic when compared with prior chest x-ray. He had some mild cardiomegaly. Radiology essentially in agreement with findings. Radiology also felt there was some mild interstitial edema EKG Initial EKG: Attestation: I personally reviewed and interpreted this EKG as follows: Comments: Atrial fibrillation with ventricular rate of 99 bpm with right bundle branch block and left anterior fascicular Discharge Plan Triage Chief Complaint: Chest Pain ED Provider: Archie Eckert Dx/Rx/DC Orders Clinical Impression: Chest pain, Atrial fibrillation Instructions: ED AFIB, ED Chest Pain, Uncertain Cause Prescriptions: No Action atorvastatin 80 MG tablet 80 mg PO QHS Patient Comments: acetaminophen 500 MG tablet 1,000 mg PO Q8 PRN (Reason: fever or pain) ipratropium-albuterol 0.5 mg-3 mg(2.5 mg base)/3 mL solution for nebulization 3 ml inhalation Q6H PRN (Reason: wheezing) Envarsus XR 0.75 mg tablet extended release 24 hr 1.5 mg PO DAILY cholecalciferol (vitamin D3) 50 mcg (2,000 unit) capsule 100 mcg PO DAILY clopidogrel 75 mg tablet 75 mg PO DAILY pantoprazole 40 mg tablet,delayed release (DR/EC) 40 mg PO DAILY doxazosin 8 mg tablet 8 mg PO QHS gabapentin 300 mg capsule 300 mg PO BID PRN (Reason: NERVE PAIN) trazodone 50 mg tablet 50 mg PO QHS isosorbide mononitrate 30 mg tablet extended release 24 hr 30 mg PO DAILY sodium bicarbonate 650 mg tablet 1,300 mg PO BID losartan 25 mg tablet 25 mg PO DAILY metoprolol tartrate 25 mg tablet 25 mg PO BID albuterol sulfate 1 INHALER inhaler 1 - 2 puff inhalation Q4H PRN (Reason: Shortness Of Breath) cefdinir 300 mg Capsule 300 mg PO DAILY Qty: 4 0RF furosemide [Lasix] 20 mg tablet 60 mg PO DAILY 30 Days Qty: 90 2RF apixaban 5 mg tablet 5 mg PO BID prednisone 5 mg tablet 5 mg PO DAILY magnesium oxide 400 mg (241.3 mg magnesium) tablet 400 mg PO DAILY melatonin 5 mg tablet 5 mg PO QHS Primary Care Provider: Melissa Judd Referrals: Melissa Judd, BUILDING [employer]OVER [Primary Care Provider, Family Practice] Activity Restrictions/Additional Instructions: Please follow-up with your conditioner tumbler operator and operations accountant if symptoms persist. Return for racing heart or persistent chest pain or if condition should worsen anyway. Print Language: Arabic Disposition Disposition: Home, Self Care
--- NOTE | 2025-08-20 07:50 | RAD_ITS ---
PROCEDURE: CHEST 1 VIEW (PORTABLE) 08/20/2025 REASON FOR EXAM: CHEST PAIN TECHNIQUE: Frontal view of the chest. COMPARISON: July 01, 2025 FINDINGS: Hardware: EKG leads. Right subclavian stent. Surgical clips overlying the right breast and chest wall. Heart: Heart size is moderately enlarged. Lungs: Scarring is present in the periphery of both lungs particularly in the right mid lung where there is some local architectural distortion. Scarring at the lung bases is seen. Mild background edema may be present. Bones: Mild curvature thoracic spine to the right. RAD/Chest 1 View (Portable) IMPRESSION: Mild interstitial edema. Cardiac enlargement. Scarring of the lung parenchyma particularly the right mid thorax. Reading Location: [id number]
[2025-08-20] MEDS: 0.9% Normal Saline (1000mL) 1,000 ML 150 ML IV (07:55)
[2025-08-20 08:03] LABS: Hematocrit 33.4 % (40-54); Hemoglobin 10.6 g/dL (13.0-16.5); Immature Granulocytes Count 0.020 X10^3/uL (0.0-0.0); Mean Corp Hgb Conc 31.7 g/dL (32-36); Mean Corpuscular Volume 94.9 fL (80-94); Mean Platelet Vol. 12.5 fl (6.2-12.0); NRBC Flagged by Analyzer 0 % (0-5); POSITIVE COUNT YES; Platelet Count 88 K/mm3 (150-450); RBC Distribution Width CV 13.8 % (11.6-14.6); RBC Distribution Width SD 48.3 fl (35.1-43.9); Red Blood Count 3.52 M/mm3 (4.6-6.2); White Blood Count 5.6 K/mm3 (4.4-11.0)
--- NOTE | 2025-08-20 08:45 | EKG12_ITS ---
Test Reason : REPEAT Blood Pressure : */* mmHG Vent. Rate : 56 BPM Atrial Rate : 56 BPM P-R Int : 156 ms QRS Dur : 152 ms QT Int : 488 ms P-R-T Axes : 13 -64 188 degrees QTcB Int : 470 ms Sinus bradycardia Right bundle branch block Left anterior fascicular block Bifascicular block T wave abnormality, consider lateral ischemia Abnormal ECG Confirmed by KYRA BURT, JOESPH ([id number]), editor farm journal POLY EVANGELISTA ([id number]) on 08/23/2025 8:15:51 AM Referred By: Confirmed By: JOESPH RAE MD
[2025-08-20 09:04] LABS: Anion Gap 13 (5-15); BUN 52 mg/dL (4-19); BUN/Creat Ratio 21.3 RATIO (10-20); Calcium,Total 10.1 mg/dL (7.6-11.0); Carbon Dioxide 26.5 mmol/L (21.0-32.0); Chloride 101 mmol/L (98-108); Estimated Creatinine Clearance 29.29 ml/min (50-250); Glucose 101 mg/dL (70-99); Potassium 4.2 mmol/L (3.3-5.1); Troponin T High Sensitivity 108 ng/L (<=22)
[2025-08-20 09:56] LABS: Troponin T High Sens 2 HR 104 ng/L (<=22)
== END 2025-08-20 10:23 | disposition home or self-care (01) ==
PROVIDERS: Emergency Provider Emergency Medicine; PCP Clinical Nurse Specialist Adult Health; Visit Provider Emergency Medicine
DX: R07.89 Other chest pain (principal); I48.91 Unspecified atrial fibrillation; Z94.0 Kidney transplant status; Z79.01 Long term (current) use of anticoagulants; Z86.711 Personal history of pulmonary embolism; Z87.891 Personal history of nicotine dependence
CPT/HCPCS: 71045; 80048; 84484; 85025; 93005; 96361; 96374; 99284; A4216